=== PATIENT | female | born 1940 | race Caucasian/White ===

== ENCOUNTER 2020-06-30 20:09 | Emergency (ER) | payer MEDICARE, OTHER, SELFPAY ==
[2020-06-30 20:25] VITALS: BP 158/96; PULSE 103; RESP 16; TEMP 36.6; O2SAT 95; BMI 27.7
--- NOTE | 2020-06-30 22:25 | ED_ITS ---
HPI - Chest Pain General Chief Complaint: Chest Pain Stated Complaint: chest pain Time Seen by Provider: 06/30/20 22:24 Source: patient Mode of arrival: ambulatory Limitations: no limitations History of Present Illness HPI narrative: patient with history of good increased anxiety under lot of stress lately been complaining of heartburn more often lately especially for last 2 days patient denies any shortness of breath no nausea no vomiting taking Prilosec at home and Xanax for anxiety MD complaint: chest pain Onset (ago): day(s) (several) Timing of current episode: episodic Prior episodes: Yes Onset: after eating Pain location: substernal Pain radiation: abdomen Severity: mild Quality: burning Relieving factors: nothing Exacerbating factors: eating Related Data Previous Rx's Medication Instructions Recorded pantoprazole [Protonix] 40 mg PO DAILY #30 tab 06/30/20 sucralfate 1 g PO BID #60 tab 06/30/20 Allergies Allergy/AdvReac Type Severity Reaction Status Date / Time Sulfa (Sulfonamide Allergy Intermediate RASH Unverified 05/21/20 15:15 Antibiotics) amoxicillin [From AUGMENTIN] Allergy Unknown PER H&P Unverified 05/21/20 15:15 clavulanic acid Allergy Unknown PER H&P Unverified 05/21/20 15:15 [From AUGMENTIN] garlic [GARLIC] Allergy Unknown PER H&P Unverified 05/21/20 15:15 metronidazole [From FLAGYL] Allergy Unknown OCULAR Unverified 05/21/20 15:15 MIGRAINES penicillamine Allergy Unknown Verified 04/07/20 00:00 environmental Allergy Unknown Uncoded 04/19/19 00:00 flagyl Allergy Unknown Uncoded 04/19/19 00:00 From KEFLEX Allergy Unknown RASH Uncoded 05/21/20 15:15 Metoprolol Tartrate Allergy Unknown Uncoded 04/07/20 00:00 Sulfacet-R Allergy Unknown Uncoded 04/07/20 00:00 Review of Systems Review of Systems: REVIEW OF SYSTEMS: Pertinent positives and negatives are stated above in the history. GEN: no fevers, chills, fatigue HEENT: no nasal congestion, sore throat, ear pain NEURO: no headache, dizziness, focal weakness PULM: no cough, shortness of breath CV: no palpitations, LE edema ABD: no nausea, vomiting, diarrhea : no dysuria, urgency, frequency SKIN: no rash ROS otherwise negative x 10 PMFSH Past Medical History Medical History GERD (gastroesophageal reflux disease) Heart murmur Irritable bowel Surgical History History of hysterectomy Social History Social History Alcohol intake: never Smoked in Last 30 Days: No Use of substances other than those prescribed or required for medical reasons: No Advance Directives: No Advance Directives Information Provided: No Physical Exam Vital Signs: Vital Signs: Vital Signs Temp Pulse Resp BP Pulse Ox 06/30/20 22:46 98.3 F 91 19 158/89 H 97 06/30/20 20:25 97.9 F 103 H 16 158/96 H 95 Body Mass Index 27.7 VITAL SIGNS: Reviewed. GENERAL: Well developed, well nourished, in no acute distress.very anxious HEAD: Normocephalic/atraumatic, Posterior oropharynx was without edema, erythema or exudate. EYES: PERRLA, EOMI intact without pain, no nystagmus/pallor/icterus noted EARS: Ext canals without abnormality, TMs non-bulging and non-erythematous NOSE: Nares patent bilateral OROPHARYNX: no oral lesions noted, posterior pharynx clear and non-erythematous without noted tonsillar enlargement/erythema/exudates NECK: Supple, no adenopathy LUNGS: Normal breath sounds. No adventitious sounds or accessory muscle use CARDIOVASCULAR: Regular rate and rhythm without noted murmurs, no JVD or lower extremity edema. ABDOMEN: Soft, mild-tender epigastric area, non-distended with bowel sounds. No rigidity. No guarding. No palpable masses or hernias noted MUSCULOSKELETAL: No tenderness, deformities, or effusions noted on gross inspection. EXTREMITIES: No cyanosis, clubbing or edema. SKIN: Inspection of the skin reveals no rashes, ulcerations, jaundice, pallor, or petechiae NEUROLOGIC: Alert and oriented x 3. Strength and sensation to light touch were grossly intact x 4. Course Course Course Narrative: patient very anxious symptoms from GERD, EKG is normal with high sensitive troponin negative patient with similar pain in the past MDM - Chest Pain Lab Data Result diagrams: 06/30/20 22:36 06/30/20 22:36 Labs: Lab Results 06/30/20 06/30/20 06/30/20 Range/Units 22:36 22:36 22:36 WBC 4.5 L (4.8-10.8) X10*3/uL RBC 3.78 L (4.20-5.50) X10*6/uL Hgb 11.4 L (12.0-16.0) g/dl Hct 35.6 L (37-47) % MCV 94.2 (80-98) fL MCH 30.2 (27.0-33.0) pg MCHC 32.0 (31.0-35.0) g/dl RDW 13.3 (11.0-16.0) % Plt Count 138 L (160-400) X10*3/uL MPV 11.3 (9.4-12.3) fL Immature Gran % (Auto) 0.2 (0.0-0.4) % Neut % (Auto) 61.7 (45-73) % Lymph % (Auto) 30.1 (20-40) % Osborne % (Auto) 5.3 (2-11) % Eos % (Auto) 2.0 (0-4) % Baso % (Auto) 0.7 (0-2) % Lymph # (Auto) 1.4 (1.2-4.9) X10*3/uL Osborne # (Auto) 0.2 (0.1-1.2) X10*3/uL Eos # (Auto) 0.1 (0.0-0.4) X10*3/uL Baso # (Auto) 0.0 (0.0-0.2) X10*3/uL Abs Immat Gran (auto) 0.01 (0.00-0.03) X10*3/uL Absolute Neuts (auto) 2.8 (2.0-8.3) X10*3/uL Absolute Nucleated RBC 0.000 (0.0-0.012) X10*3/uL Nucleated RBC % (auto) 0.0 (0.0-0.2) /100WBC Smear Tech's Comments VERIFIED Hold Blue Top SEE NOTE Sodium 142 (135-145) mmol/L Potassium 3.6 (3.3-5.1) mmol/l Chloride 102 (96-108) mmol/L Carbon Dioxide 30 H (22-29) mmol/L Anion Gap 14 (12-20) BUN 16 (9-16) mg/dL Creatinine 0.81 (0.5-1.4) mg/dL Estim Creat Clear Calc 61.4 Estimated GFR > 60 Random Glucose 96 (60-115) mg/dL Calcium 9.3 (8.4-10.2) mg/dL Total Bilirubin 0.5 (0.0-1.0) mg/dL Direct Bilirubin 0.2 (0.0-0.5) mg/dL AST 20 (5-31) U/L ALT 13 (0-31) U/L Alkaline Phosphatase 100 (39-117) U/L Troponin I High Sens (<3.5-17.0) ng/L Total Protein 7.1 (6.5-8.0) g/dL Albumin 4.4 (3.5-5.0) g/dL Lipase 12 (8-78) U/L 06/30/20 Range/Units 22:36 WBC (4.8-10.8) X10*3/uL RBC (4.20-5.50) X10*6/uL Hgb (12.0-16.0) g/dl Hct (37-47) % MCV (80-98) fL MCH (27.0-33.0) pg MCHC (31.0-35.0) g/dl RDW (11.0-16.0) % Plt Count (160-400) X10*3/uL MPV (9.4-12.3) fL Immature Gran % (Auto) (0.0-0.4) % Neut % (Auto) (45-73) % Lymph % (Auto) (20-40) % Osborne % (Auto) (2-11) % Eos % (Auto) (0-4) % Baso % (Auto) (0-2) % Lymph # (Auto) (1.2-4.9) X10*3/uL Osborne # (Auto) (0.1-1.2) X10*3/uL Eos # (Auto) (0.0-0.4) X10*3/uL Baso # (Auto) (0.0-0.2) X10*3/uL Abs Immat Gran (auto) (0.00-0.03) X10*3/uL Absolute Neuts (auto) (2.0-8.3) X10*3/uL Absolute Nucleated RBC (0.0-0.012) X10*3/uL Nucleated RBC % (auto) (0.0-0.2) /100WBC Smear Tech's Comments Hold Blue Top Sodium (135-145) mmol/L Potassium (3.3-5.1) mmol/l Chloride (96-108) mmol/L Carbon Dioxide (22-29) mmol/L Anion Gap (12-20) BUN (9-16) mg/dL Creatinine (0.5-1.4) mg/dL Estim Creat Clear Calc Estimated GFR Random Glucose (60-115) mg/dL Calcium (8.4-10.2) mg/dL Total Bilirubin (0.0-1.0) mg/dL Direct Bilirubin (0.0-0.5) mg/dL AST (5-31) U/L ALT (0-31) U/L Alkaline Phosphatase (39-117) U/L Troponin I High Sens 6.8 (<3.5-17.0) ng/L Total Protein (6.5-8.0) g/dL Albumin (3.5-5.0) g/dL Lipase (8-78) U/L ECG Data ECG #1: Attestation: I personally reviewed and interpreted this ECG as follows: Prior ECG tracings: available for review Interpretation: heart rate [address] T wave changes normal axis no signs of ischemia Discharge Plan Discharge Clinical Impression: Chronic GERD, Anxiety Chest pain Qualifiers: Chest pain type: unspecified Qualified Code(s): R07.9 - Chest pain, unspecified Patient Disposition: Home, Self-Care Prescriptions: New pantoprazole [Protonix] 40 mg tablet,delayed release (DR/EC) 40 mg PO DAILY Qty: 30 RF: 2 sucralfate 1 gram tablet 1 g PO BID Qty: 60 RF: 0
--- NOTE | 2020-06-30 22:26 | XR_ITS ---
EXAMINATION: XR CHEST CLINICAL INFORMATION: Chest pain COMPARISON: 02/12/2020 TECHNIQUE: Frontal view of the chest was obtained. FINDINGS: Cardiac leads overlie the chest. No dense consolidation, edema, or effusion. No pneumothorax. Mild bronchial wall thickening. The cardiomediastinal silhouette is unchanged, with a tortuous and calcified aorta. XR/XR chest 1V IMPRESSION: No consolidation. Bronchial wall thickening can be seen with a small airways process such as asthma or atypical/viral infection.
--- NOTE | 2020-06-30 22:26 | ECG_ITS ---
Test Reason : CHEST PAIN Blood Pressure : / mmHG Vent. Rate : 102 BPM Atrial Rate : 102 BPM P-R Int : 192 ms QRS Dur : 086 ms QT Int : 344 ms P-R-T Axes : 047 -07 029 degrees QTc Int : 448 ms Sinus tachycardia Normal ECG When compared with ECG of 15-MAR-2020 10:33, MD interval has decreased Referred By: Declan Malin Electronically Signed By:RADHA CAMARA MD
[2020-06-30 22:44] LABS: Hemoglobin 11.4 g/dl (12.0-16.0); Imm Gran Abs Auto 0.01 X10*3/uL (0.00-0.03); Imm Gran Pct Auto 0.2 % (0.0-0.4); MANUAL DIFF FLAG SCAN; Mean Platelet Volume 11.3 fL (9.4-12.3); PLT CLUMP 1; SCAN SMEAR FLAG 1
[2020-06-30 22:45] LABS: Basophils Percent Auto 0.7 % (0-2); Eosinophils Absolute Auto 0.1 X10*3/uL (0.0-0.4); Hematocrit 35.6 % (37-47); Lymphocytes Absolute Auto 1.4 X10*3/uL (1.2-4.9); Lymphocytes Percent Auto 30.1 % (20-40); Mean Corpuscular Hemoglobin 30.2 pg (27.0-33.0); Mean Corpuscular Volume 94.2 fL (80-98); Monocytes Absolute Auto 0.2 X10*3/uL (0.1-1.2); Monocytes Percent Auto 5.3 % (2-11); Neutrophils Absolute Auto 2.8 X10*3/uL (2.0-8.3); Neutrophils Percent Auto 61.7 % (45-73); Platelet Count 138 X10*3/uL (160-400); Red Blood Count 3.78 X10*6/uL (4.20-5.50); Red Cell Distribution Width 13.3 % (11.0-16.0); White Blood Count 4.5 X10*3/uL (4.8-10.8)
[2020-06-30 22:46] VITALS: BP 158/89; PULSE 91; RESP 19; TEMP 36.8; O2SAT 97
[2020-06-30 22:47] LABS: SLIDE REVIEW VERIFIED
[2020-06-30] MEDS: Aspirin Enteric Coated 81 MG TABLET.DR 162 MG PO (23:02)
[2020-06-30] MEDS: Magnesium Hydrox/Alum Hydrox 30 ML ORAL.SUSP PO (23:02)
[2020-06-30 23:11] LABS: Troponin-I High Sensitivity 6.8 ng/L (<3.5-17.0)
[2020-06-30 23:14] VITALS: PULSE 78
[2020-06-30 23:23] LABS: Alanine Aminotransferase 13 U/L (0-31); Albumin Level 4.4 g/dL (3.5-5.0); Alkaline Phosphatase 100 U/L (39-117); Anion Gap 14 (12-20); Aspartate Amino Transferase 20 U/L (5-31); Bilirubin Direct 0.2 mg/dL (0.0-0.5); Bilirubin Total 0.5 mg/dL (0.0-1.0); Blood Urea Nitrogen 16 mg/dL (9-16); Calcium 9.3 mg/dL (8.4-10.2); Carbon Dioxide 30 mmol/L (22-29); Chloride 102 mmol/L (96-108); Creatinine Clr Calc Pharmacy 61.4; Estimated Glomerular Filt Rate > 60; Glucose Random 96 mg/dL (60-115); Lipase 12 U/L (8-78); Potassium 3.6 mmol/l (3.3-5.1); Sodium 142 mmol/L (135-145); Total Protein 7.1 g/dL (6.5-8.0)
== END 2020-07-01 00:08 | disposition home or self-care (01) ==
PROVIDERS: Emergency Provider Internal Medicine; PCP Internal Medicine
DX: R07.89 Other chest pain (principal); F41.1 Generalized anxiety disorder; F43.0 Acute stress reaction; K21.9 Gastro-esophageal reflux disease without esophagitis; Z79.899 Other long term (current) drug therapy
CPT/HCPCS: 36415; 71045; 80048; 80076; 83690; 84484; 85025; 93005; 99285

== ENCOUNTER → 2020-08-07 11:54 | Outpatient (BNVA) | payer MEDICARE, OTHER, SELFPAY | PROVIDERS: PCP Internal Medicine; Visit Provider Advanced Practice Midwife | DX: N95.2 Postmenopausal atrophic vaginitis (principal); L73.8 Other specified follicular disorders | CPT/HCPCS: 99212 ==

== ENCOUNTER 2020-09-02 16:43 | Outpatient (REF) | payer MEDICARE, OTHER, SELFPAY ==
[2020-09-02 17:31] LABS: Influenza A PCR NEGATIVE (Negative); Influenza B PCR NEGATIVE (Negative); Resp Syncy Virus RNA Qual PCR NEGATIVE (Negative); SARS COV2 PCR INHOUSE NEGATIVE (Negative)
== END 2020-09-02 16:44 | disposition home or self-care (01) ==
LOC: HO.LNP 16:43
PROVIDERS: Visit Provider Internal Medicine
DX: Z20.828 Contact with and (suspected) exposure to other viral communicable diseases (principal); R05 Cough; R68.89 Other general symptoms and signs
CPT/HCPCS: 0241U

== ENCOUNTER 2020-09-09 15:10 | Outpatient (REF) | payer MEDICARE, OTHER, SELFPAY ==
[2020-09-10 09:15] LABS: BV Int Neg Control Negative (Negative); BV Int Pos Control Positive (Positive)
== END 2020-09-09 15:11 | disposition home or self-care (01) ==
LOC: HO.LAB 15:10
PROVIDERS: PCP Internal Medicine; Visit Provider Advanced Practice Midwife
DX: N89.8 Other specified noninflammatory disorders of vagina (principal); N95.2 Postmenopausal atrophic vaginitis
CPT/HCPCS: 87480; 87510; 87660; 99212

== ENCOUNTER 2020-09-14 13:41 | Outpatient (REF) | payer MEDICARE, OTHER, SELFPAY ==
--- NOTE | 2020-09-14 | XR_ITS ---
EXAMINATION: XR CHEST CLINICAL INFORMATION: Persistent cough. COMPARISON: None TECHNIQUE: 2 views of the chest were obtained. FINDINGS: The lungs are well-expanded and clear of acute pneumonic process. There is minimal bilateral apical pleural thickening. The heart size and pulmonary vascularity is normal. There are old healed fracture right posterior sixth rib. No other bony abnormality seen. The soft tissues are normal. XR/XR chest 2V IMPRESSION: No acute cardiopulmonary process seen. Old healed right posterior sixth rib fracture. No other bony abnormality seen.
== END 2020-09-14 13:42 | disposition home or self-care (01) ==
LOC: HO.XRAY 13:41
PROVIDERS: PCP Internal Medicine; Visit Provider Internal Medicine
DX: R05 Cough (principal)
CPT/HCPCS: 71046

== ENCOUNTER 2020-09-17 13:43 | Outpatient (REF) | payer MEDICARE, OTHER, SELFPAY ==
--- NOTE | 2020-09-17 14:07 | XR_ITS ---
EXAMINATION: XR HAND, LEFT CLINICAL INFORMATION: Osteoarthritis left hand COMPARISON: Previous x-rays April 2019 TECHNIQUE: PA, lateral, and oblique views of the left hand. FINDINGS: There is an old healed fracture of the distal radial metaphysis. Alignment is unchanged. There is an old ununited ulnar styloid fracture. No acute fracture or dislocation is seen. There is arthritis at the IP joints with joint space narrowing, osteophyte formation and subchondral cyst formation. This is greatest at the DIP joints of the second third and fourth fingers and PIP joint of the fourth finger. There is mild arthritis at the first CORRECTION joint with joint space narrowing and osteophyte formation. Soft tissues are unremarkable. XR/XR hand LT min 3V IMPRESSION: Old distal radius and ulnar styloid fractures. Severe arthritis at the IP joints and mild arthritis at the first CORRECTION joint.
[2020-09-17 14:21] LABS: MANUAL DIFF FLAG NO
[2020-09-17 14:24] LABS: Basophils Percent Auto 0.4 % (0-2); Eosinophils Absolute Auto 0.1 X10*3/uL (0.0-0.4); Eosinophils Percent Auto 2.5 % (0-4); Hematocrit 35.3 % (37-47); Hemoglobin 11.3 g/dl (12.0-16.0); Imm Gran Abs Auto 0.02 X10*3/uL (0.00-0.03); Imm Gran Pct Auto 0.4 % (0.0-0.4); Lymphocytes Absolute Auto 1.2 X10*3/uL (1.2-4.9); Lymphocytes Percent Auto 25.2 % (20-40); Mean Corpuscular Hemoglobin 30.7 pg (27.0-33.0); Mean Corpuscular Volume 95.9 fL (80-98); Mean Platelet Volume 12.1 fL (9.4-12.3); Monocytes Absolute Auto 0.3 X10*3/uL (0.1-1.2); Monocytes Percent Auto 5.7 % (2-11); Neutrophils Absolute Auto 3.1 X10*3/uL (2.0-8.3); Neutrophils Percent Auto 65.8 % (45-73); Platelet Count 118 X10*3/uL (160-400); Red Blood Count 3.68 X10*6/uL (4.20-5.50); White Blood Count 4.8 X10*3/uL (4.8-10.8)
[2020-09-17 14:50] LABS: Alanine Aminotransferase 13 U/L (0-31); Albumin Level 4.2 g/dL (3.5-5.0); Alkaline Phosphatase 111 U/L (39-117); Anion Gap 11 (12-20); Aspartate Amino Transferase 17 U/L (5-31); Bilirubin Total 0.4 mg/dL (0.0-1.0); Blood Urea Nitrogen 23 mg/dL (9-16); C Reactive Protein 0.06 mg/dL (< or = 0.50); Calcium 8.8 mg/dL (8.4-10.2); Carbon Dioxide 32 mmol/L (22-29); Chloride 104 mmol/L (96-108); Estimated Glomerular Filt Rate > 60; Glucose Random 88 mg/dL (60-115); Potassium 4.9 mmol/l (3.3-5.1); Sodium 142 mmol/L (135-145); Total Protein 6.9 g/dL (6.5-8.0)
== END 2020-09-17 13:44 | disposition home or self-care (01) ==
LOC: HO.LAB 13:43
PROVIDERS: PCP Internal Medicine; Visit Provider Internal Medicine
DX: K21.9 Gastro-esophageal reflux disease without esophagitis (principal); M19.042 Primary osteoarthritis, left hand; K58.9 Irritable bowel syndrome, unspecified
CPT/HCPCS: 36415; 73130; 80053; 85025; 86140

== ENCOUNTER 2020-10-19 14:03 | Outpatient (REF) | payer MEDICARE, OTHER, SELFPAY | END 2020-10-19 14:04 | disposition home or self-care (01) | LOC: HO.LNP 14:03 | PROVIDERS: Visit Provider Hospitalist | DX: Z20.822 Contact with and (suspected) exposure to COVID-19 (principal); B34.9 Viral infection, unspecified | CPT/HCPCS: U0003; U0005 ==

== ENCOUNTER 2020-11-12 09:51 | Outpatient (REF) | payer MEDICARE, OTHER, SELFPAY ==
[2020-11-12 11:29] LABS: MANUAL DIFF FLAG NO
[2020-11-12 11:37] LABS: Basophils Percent Auto 0.8 % (0-2); Eosinophils Absolute Auto 0.1 X10*3/uL (0.0-0.4); Hematocrit 35.4 % (37-47); Hemoglobin 11.5 g/dl (12.0-16.0); Imm Gran Abs Auto 0.02 X10*3/uL (0.00-0.03); Imm Gran Pct Auto 0.5 % (0.0-0.4); Lymphocytes Percent Auto 27.9 % (20-40); Mean Corpuscular HGB Conc 32.5 g/dl (31.0-35.0); Mean Corpuscular Hemoglobin 30.4 pg (27.0-33.0); Mean Corpuscular Volume 93.7 fL (80-98); Mean Platelet Volume 12.6 fL (9.4-12.3); Monocytes Absolute Auto 0.3 X10*3/uL (0.1-1.2); Monocytes Percent Auto 7.7 % (2-11); Neutrophils Absolute Auto 2.2 X10*3/uL (2.0-8.3); Neutrophils Percent Auto 60.1 % (45-73); Platelet Count 130 X10*3/uL (160-400); Red Blood Count 3.78 X10*6/uL (4.20-5.50); Red Cell Distribution Width 13.4 % (11.0-16.0); White Blood Count 3.7 X10*3/uL (4.8-10.8)
[2020-11-12 12:26] LABS: Alanine Aminotransferase 12 U/L (0-31); Albumin Level 4.3 g/dL (3.5-5.0); Alkaline Phosphatase 143 U/L (39-117); Amylase 34 U/L (28-100); Anion Gap 13 (12-20); Aspartate Amino Transferase 19 U/L (5-31); Bilirubin Total 0.6 mg/dL (0.0-1.0); Blood Urea Nitrogen 13 mg/dL (9-16); Calcium 9.1 mg/dL (8.4-10.2); Carbon Dioxide 30 mmol/L (22-29); Chloride 101 mmol/L (96-108); Estimated Glomerular Filt Rate > 60; Glucose Random 123 mg/dL (60-115); Lipase 13 U/L (8-78); Potassium 3.8 mmol/L (3.3-5.1); Sodium 140 mmol/L (135-145)
== END 2020-11-12 09:52 | disposition home or self-care (01) ==
LOC: HO.HMGCLDS 09:51
PROVIDERS: PCP Internal Medicine; Visit Provider Nurse Practitioner Family
DX: B34.9 Viral infection, unspecified (principal); R10.13 Epigastric pain; R19.7 Diarrhea, unspecified; R11.0 Nausea
CPT/HCPCS: 36415; 80053; 82150; 83690; 85025

== ENCOUNTER 2020-11-27 13:54 | Outpatient (REF) | payer MEDICARE, OTHER, SELFPAY ==
[2020-11-27 16:41] LABS: Uric Acid 4.2 mg/dL (2.4-5.7)
== END 2020-11-27 13:55 | disposition home or self-care (01) ==
LOC: HO.HMGCLDS 13:54
PROVIDERS: PCP Internal Medicine; Visit Provider Podiatrist
DX: M10.9 Gout, unspecified (principal)
CPT/HCPCS: 36415; 84550

== ENCOUNTER 2021-01-13 10:25 | Outpatient (REF) | payer MEDICARE, OTHER, SELFPAY ==
--- NOTE | ~2021-01-13 | MM_ITS ---
EXAMINATION: MM SCREENING DIGITAL BREAST TOMOSYNTHESIS, BILATERAL CLINICAL INFORMATION: Screening. Asymptomatic. The lifetime risk of breast cancer based on the Tyrer-Cuzick Model is 3%. COMPARISON: Mammography: 02/09/2019; outside exams 02/03/2018, 01/20/2017, 01/18/2016 ([facility] [place]). TECHNIQUE: Digital breast tomosynthesis is performed in both the craniocaudal and mediolateral oblique views along with computer-aided detection (CAD). Synthesized 2D images are generated from the tomosynthesis. FINDINGS: There are scattered areas of fibroglandular density (ACR BI-RADS breast composition Category b). There are no significant masses, abnormal calcifications, or other abnormalities. Parenchymal pattern is similar to prior studies. There are some shifting fibroglandular densities related to positioning from year to year as expected. The skin contours are smooth. No significant changes. MM/MM tomosynthesis screening BI IMPRESSION: No mammographic evidence of malignancy. ASSESSMENT: BI-RADS 2: Benign RECOMMENDATION: Routine annual mammography screening. This patient's information was entered into a reminder system with a target due date for their next mammogram.
== END 2021-01-13 10:26 | disposition home or self-care (01) ==
LOC: HO.MAMMO 10:25
PROVIDERS: PCP Internal Medicine; Visit Provider Internal Medicine
DX: Z12.31 Encounter for screening mammogram for malignant neoplasm of breast (principal)
CPT/HCPCS: 77063; 77067

== ENCOUNTER 2021-01-14 10:53 | Outpatient (REF) | payer MEDICARE, OTHER, SELFPAY ==
[2021-01-14 13:50] LABS: MANUAL DIFF FLAG NO
[2021-01-14 14:00] LABS: Basophils Percent Auto 0.8 % (0-2); Eosinophils Absolute Auto 0.1 X10*3/uL (0.0-0.4); Eosinophils Percent Auto 2.4 % (0-4); Hematocrit 34.4 % (37-47); Hemoglobin 10.9 g/dl (12.0-16.0); Imm Gran Abs Auto 0.01 X10*3/uL (0.00-0.03); Imm Gran Pct Auto 0.3 % (0.0-0.4); Lymphocytes Absolute Auto 1.1 X10*3/uL (1.2-4.9); Lymphocytes Percent Auto 29.1 % (20-40); Mean Corpuscular HGB Conc 31.7 g/dl (31.0-35.0); Mean Corpuscular Volume 94.8 fL (80-98); Mean Platelet Volume 12.8 fL (9.4-12.3); Monocytes Absolute Auto 0.3 X10*3/uL (0.1-1.2); Monocytes Percent Auto 6.8 % (2-11); Neutrophils Absolute Auto 2.3 X10*3/uL (2.0-8.3); Neutrophils Percent Auto 60.6 % (45-73); Platelet Count 126 X10*3/uL (160-400); Red Blood Count 3.63 X10*6/uL (4.20-5.50); Red Cell Distribution Width 13.2 % (11.0-16.0); White Blood Count 3.8 X10*3/uL (4.8-10.8)
[2021-01-14 14:24] LABS: Iron 60 mcg/dL (30-160); Percent Iron Saturation 21 % (15-50); Total Iron Binding Capacity 290 mcg/dL (228-428); Unsaturated Iron Binding 230 ug/dL
[2021-01-14 14:47] LABS: Free T4 (Free Thyroxine) 1.06 ng/dL (0.71-1.85); Thyroid Stimulating Hormone 0.77 uIU/mL (0.32-4.0)
[2021-01-14 15:12] LABS: Vitamin B12 183 pg/mL (200-900)
== END 2021-01-14 10:54 | disposition home or self-care (01) ==
LOC: HO.10HDL 10:53
PROVIDERS: Visit Provider Internal Medicine
DX: D64.9 Anemia, unspecified (principal); R79.89 Other specified abnormal findings of blood chemistry; K21.9 Gastro-esophageal reflux disease without esophagitis
CPT/HCPCS: 36415; 82607; 83540; 84439; 84443; 85025

== ENCOUNTER 2021-02-04 10:16 | Outpatient (REF) | payer MEDICARE, OTHER, SELFPAY ==
[2021-02-04 13:19] LABS: Hemoglobin 11.8 g/dl (12.0-16.0); Imm Gran Abs Auto 0.01 X10*3/uL (0.00-0.03); Imm Gran Pct Auto 0.3 % (0.0-0.4); MANUAL DIFF FLAG SCAN; Mean Platelet Volume 13.2 fL (9.4-12.3); Red Cell Distribution Width 13.1 % (11.0-16.0); SCAN SMEAR FLAG 1
[2021-02-04 13:21] LABS: Basophils Percent Auto 0.6 % (0-2); Eosinophils Absolute Auto 0.1 X10*3/uL (0.0-0.4); Eosinophils Percent Auto 3.2 % (0-4); Hematocrit 36.9 % (37-47); Lymphocytes Absolute Auto 1.1 X10*3/uL (1.2-4.9); Lymphocytes Percent Auto 31.8 % (20-40); Mean Corpuscular Hemoglobin 29.9 pg (27.0-33.0); Mean Corpuscular Volume 93.4 fL (80-98); Monocytes Absolute Auto 0.2 X10*3/uL (0.1-1.2); Monocytes Percent Auto 6.8 % (2-11); Neutrophils Percent Auto 57.3 % (45-73); PLT ABN DIST 1; Platelet Count 101 X10*3/uL (160-400); Red Blood Count 3.95 X10*6/uL (4.20-5.50); White Blood Count 3.4 X10*3/uL (4.8-10.8)
[2021-02-04 13:46] LABS: Alanine Aminotransferase 12 U/L (0-31); Albumin Level 4.2 g/dL (3.5-5.0); Alkaline Phosphatase 107 U/L (39-117); Anion Gap 12 (12-20); Aspartate Amino Transferase 18 U/L (5-31); Bilirubin Total 0.5 mg/dL (0.0-1.0); Blood Urea Nitrogen 16 mg/dL (9-16); C Reactive Protein 0.03 mg/dL (< or = 0.50); Calcium 9.4 mg/dL (8.4-10.2); Carbon Dioxide 30 mmol/L (22-29); Chloride 104 mmol/L (96-108); Estimated Glomerular Filt Rate > 60; Glucose Random 105 mg/dL (60-115); Lipase 15 U/L (8-78); Potassium 4.1 mmol/L (3.3-5.1); Rheumatoid Factor < 15.0 IU/mL (<15.0); Sodium 142 mmol/L (135-145); Total Protein 6.8 g/dL (6.5-8.0)
[2021-02-04 14:09] LABS: SLIDE REVIEW VERIFIED
[2021-02-04 14:14] LABS: Erythrocyte Sedimentation Rate 14 MM/HR (0-20)
[2021-02-05 14:07] LABS: Anti Nuclear Antibody Screen NEGATIVE (NEGATIVE)
== END 2021-02-04 10:17 | disposition home or self-care (01) ==
LOC: HO.10HDL 10:16
PROVIDERS: PCP Internal Medicine; Visit Provider Internal Medicine
DX: R10.9 Unspecified abdominal pain (principal); D64.9 Anemia, unspecified; M25.50 Pain in unspecified joint; K21.9 Gastro-esophageal reflux disease without esophagitis
CPT/HCPCS: 36415; 80053; 83690; 85025; 85652; 86038; 86039; 86140; 86431

== ENCOUNTER 2021-02-18 09:43 | Outpatient (REF) | payer MEDICARE, OTHER, SELFPAY ==
--- NOTE | ~2021-02-18 | MM_ITS ---
EXAMINATION: BONE DENSITOMETRY CLINICAL INDICATION: Postmenopausal. COMPARISON: Baseline BD dated 04/15/2010. TECHNIQUE: Using a OnAir3G DXA System (software version: 13.1) manufactured by [employer], dual-energy x-ray absorptiometry was performed of the lumbar spine and left hip. The images are of good technical quality. Summary results are attached. FINDINGS: AP SPINE L1-L4: Current: BMD 0.938 g/cm2, Z-score -0.8, T-score -2.0, osteopenia, 0.3% decrease from baseline (<5% change is not significant). Baseline: BMD 0.941 g/cm2. LEFT FEMUR, NECK: Current: BMD 0.676 g/cm2, Z-score -0.9, T-score -2.6, osteoporosis. Baseline: BMD 0.775 g/cm2. LEFT FEMUR, TOTAL: Current: BMD 0.676 g/cm2, Z-score -1.1, T-score -2.6, osteoporosis, 15.5% decrease from baseline (<5% change is not significant). Baseline: BMD 0.800 g/cm2. IDENTIFIED RISK FACTORS: Osteoporosis, height loss, low calcium intake, history of fracture (adult), menopause. HISTORY OF FRACTURE: Wrist. MEDICATIONS: None listed. MM/XR DEXA axial skeleton IMPRESSION: 1. DIAGNOSIS: Osteoporosis based on the lowest T-score value of -2.6 in the femoral neck and total femur applying World Health Organization criteria. 2. 10-YEAR FRACTURE RISK PREDICTION, FRAX: Major osteoporotic fracture (clinical spine, forearm, hip or shoulder) 28.0%. Hip fracture 9.4%. 3. Treatment Recommendations: NOF guidelines recommend consideration for treatment in postmenopausal women and men age 50 and older presenting with the following: -A hip or vertebral (clinical or morphometric) fracture. -T-score less than or equal to -2.5 at the femoral neck or spine after appropriate evaluation to exclude secondary causes. -Low bone mass at the hip or spine and a 10-year fracture probability by FRAX of greater than or equal to 3% for hip fracture or greater than or equal to 20% for major osteoporotic fracture based on the [place] adapted WHO algorithm. 4. Other Recommendations: All treatment decisions require clinical judgment and consideration of individual patient factors, including patient preferences, comorbidities, previous drug use, risk factors not captured in the FRAX model (e.g. frailty, falls, vitamin D deficiency, increased bone turnover, interval significant decline in bone density) and possible under or overestimation of fracture risk by FRAX. Additional medical evaluation for secondary cause of low bone mineral density may be appropriate. FUTURE SCAN RECOMMENDATION: People with diagnosed cases of osteoporosis or at high risk for fracture should have regular bone mineral density tests. For patients eligible for Medicare, routine testing is allowed once every 2 years. The testing frequency can be increased to one year for patients who have rapidly progressing disease, those who are receiving or discontinuing medical therapy to restore bone mass, or have additional risk factors.
== END 2021-02-18 09:44 | disposition home or self-care (01) ==
LOC: HO.MAMMO 09:43
PROVIDERS: Visit Provider Internal Medicine
DX: Z13.820 Encounter for screening for osteoporosis (principal); M81.0 Age-related osteoporosis without current pathological fracture; Z78.0 Asymptomatic menopausal state; Z87.81 Personal history of (healed) traumatic fracture
CPT/HCPCS: 77080

== ENCOUNTER 2021-02-24 09:30 | Emergency (ER) | payer MEDICARE, OTHER, SELFPAY ==
[2021-02-24] VITALS (9 sets, daily range): BP systolic 141–173; BP diastolic 85–96; PULSE 80–97; RESP 15–18; TEMP 36.4–36.6; O2SAT 95–99; BMI 30.3
--- NOTE | ~2021-02-24 | CT_ITS ---
EXAMINATION: CT ABDOMEN AND PELVIS WITH CONTRAST CLINICAL INFORMATION: Left about pain and nausea COMPARISON: None TECHNIQUE: Multidetector volumetric images were obtained from the superior aspect of the liver through the pubic symphysis following administration 85 mL of Omnipaque 350 intravenous contrast. Sagittal and coronal reformatted images were obtained on the technologist's workstation. Oral contrast: No This CT examination was performed using dose optimization techniques as appropriate, variously including the following: *Automated exposure control *Adjustment of mA and/or kV according to patient size (this includes techniques or standardized protocols for targeted exams where dose is matched to indication/reason for exam; i.e. extremities or head) *Use of iterative reconstruction technique DLP: 7:15 mGy-cm FINDINGS: LUNG BASES: There is mild atelectasis or fibrosis in both lung bases. The heart size is normal. LIVER, GALLBLADDER, AND BILIARY TREE: The liver is normal in enlarged in size measuring 18.5 cm. It is normal shape, and attenuation. There is a 1.3 cm hypodensity right hepatic lobe likely simple cyst. No additional lesions seen. No intrahepatic ductal dilatation seen. The gallbladder is unremarkable with no evidence of radiopaque gallstones, gallbladder wall thickening, or obvious pericholecystic inflammatory changes. PANCREAS: Unremarkable. SPLEEN: Unremarkable. ADRENAL GLANDS: Unremarkable. KIDNEYS AND URETERS: The kidneys are normal in size, shape, and attenuation. There is a nonobstructing 4 mm radiopaque calculi upper and midpole left kidney. No caliectasis or hydronephrosis seen. There is no radiopaque right renal calculi seen. BLADDER: Unremarkable. GASTROINTESTINAL TRACT: There is moderate scattered stool seen throughout the colon without significant distention. The small bowel loops are normal caliber. Appendix there is not visualized. There is diffuse colonic diverticulosis without diverticulitis. ABDOMINAL WALL: No significant hernia is appreciated. LYMPH NODES: Normal. VASCULAR: There is mild atherosclerotic dilation of mid abdominal aorta measuring 3.0 x 3.1 cm on axial image 36/3 PELVIC VISCERA: Unremarkable. OSSEOUS STRUCTURES: The uterus is midline and appears unremarkable. No free fluid. No adnexal mass or abnormal lymphadenopathy. Carotid calcifications are seen at the L4-L5 L5-S1 disc levels. There is mild ventral spondylosis lower dorsal and upper lumbar spine. No lytic process. CT/CT abdomen pelvis w con IMPRESSION: Colonic diverticulosis without diverticulitis. Moderate constipation. Nonobstructive left renal calculi without caliectasis or hydronephrosis. There are extrarenal bilateral kidney pelvises. Mild hepatomegaly. Mild atherosclerotic dilation of mid abdominal aorta as described above on.
[2021-02-24] MEDS: 0.9 % Sodium Chloride 1,000 ML 999 ML IVCONT (11:34)
[2021-02-24 11:43] LABS: Eosinophils Absolute Auto 0.1 X10*3/uL (0.0-0.4); Hemoglobin 11.7 g/dl (12.0-16.0); Imm Gran Abs Auto 0.01 X10*3/uL (0.00-0.03); Imm Gran Pct Auto 0.3 % (0.0-0.4); Lymphocytes Percent Auto 30.5 % (20-40); MANUAL DIFF FLAG SCAN; Monocytes Absolute Auto 0.2 X10*3/uL (0.1-1.2); PLT CLUMP 1; Red Cell Distribution Width 13.2 % (11.0-16.0); SCAN SMEAR FLAG 1
[2021-02-24 11:44] LABS: Appearance Urine CLEAR; Color Urine YELLOW; Glucose Urine UA NEG (NEG); Leukocyte Esterase Urine NEG (NEG); Nitrite Urine NEG (NEG); Urine Blood NEG (NEG); Urine Ketones NEG (NEG); Urine Protein NEG (NEG-TRACE)
[2021-02-24 11:45] LABS: Basophils Percent Auto 0.6 % (0-2); Eosinophils Percent Auto 1.7 % (0-4); Hematocrit 36.4 % (37-47); Lymphocytes Absolute Auto 1.1 X10*3/uL (1.2-4.9); Mean Corpuscular HGB Conc 32.1 g/dl (31.0-35.0); Mean Corpuscular Hemoglobin 29.9 pg (27.0-33.0); Mean Corpuscular Volume 93.1 fL (80-98); Mean Platelet Volume 11.7 fL (9.4-12.3); Monocytes Percent Auto 6.7 % (2-11); Neutrophils Absolute Auto 2.2 X10*3/uL (2.0-8.3); Neutrophils Percent Auto 60.2 % (45-73); Platelet Count 134 X10*3/uL (160-400); Red Blood Count 3.91 X10*6/uL (4.20-5.50); White Blood Count 3.6 X10*3/uL (4.8-10.8)
[2021-02-24 11:48] LABS: Prothrombin Time 11.9 SEC (10.8-13.0)
[2021-02-24 12:13] LABS: Alanine Aminotransferase 11 U/L (0-31); Albumin Level 4.4 g/dL (3.5-5.0); Alkaline Phosphatase 116 U/L (39-117); Anion Gap 11 (12-20); Aspartate Amino Transferase 19 U/L (5-31); Bilirubin Total 0.5 mg/dL (0.0-1.0); Blood Urea Nitrogen 18 mg/dL (9-16); Calcium 9.7 mg/dL (8.4-10.2); Carbon Dioxide 32 mmol/L (22-29); Chloride 103 mmol/L (96-108); Creatinine Clr Calc Pharmacy 63.2; Estimated Glomerular Filt Rate > 60; Glucose Random 97 mg/dL (60-115); Lipase 12 U/L (8-78); Magnesium 2.2 mg/dL (1.6-2.6); Potassium 5.3 mmol/L (3.3-5.1); Sodium 141 mmol/L (135-145); Total Protein 7.1 g/dL (6.5-8.0)
--- NOTE | 2021-02-24 12:31 | ED.ABDPAIN ---
HPI - Abdominal Pain General Chief Complaint: Abdominal Pain <ROMAINE Pham Last Filed: 02/24/21 16:59> Stated Complaint: abd pain <ROMAINE Pham Last Filed: 02/24/21 16:59> Time Seen by Provider: 02/24/21 10:49 <ROMAINE Pham Last Filed: 02/24/21 16:59> Source: patient <ROMAINE Pham Last Filed: 02/24/21 16:59> Mode of arrival: ambulatory <ROMAINE Pham Last Filed: 02/24/21 16:59> Limitations: no limitations <ROMAINE Pham Last Filed: 02/24/21 16:59> History of Present Illness HPI narrative: 80-year-old female with a past medical history of diverticulitis, irritable bowel syndrome, GERD, heart murmur, and anxiety presenting to the ED with complaints of left lower quadrant abdominal pain for the past few days worse today with associated nausea and constipation. Denies any fevers, dizziness, headaches, neck pain/stiffness, sore throat, cough, chest pain, shortness of breath, radiation of the abdominal pain, back pain, dysuria, hematuria, abnormal vaginal discharge, black or bloody stools or diarrhea. Denies recent travel or sick contacts or possible bad food exposure. <ROMAINE Pham Last Filed: 02/24/21 16:59> MD elicited complaint: abdominal pain <ROMAINE Pham Last Filed: 02/24/21 16:59> Pertinent past history: diverticulitis <ROMAINE Pham Last Filed: 02/24/21 16:59> Onset (ago): day(s) (A few days worse today) <ROMAINE Pham Last Filed: 02/24/21 16:59> Pain Consistency: constant <ROMAINE Pham Last Filed: 02/24/21 16:59> Location: LLQ <ROMAINE Pham Last Filed: 02/24/21 16:59> Severity: moderate <ROMAINE Pham Last Filed: 02/24/21 16:59> Quality: cramping and aching <ROMAINE Pham Last Filed: 02/24/21 16:59> Radiation: none <ROMAINE Pham - Last Filed: 02/24/21 16:59> Migration to: no migration <ROMAINE Pham - Last Filed: 02/24/21 16:59> Exacerbating factors: nothing <ROMAINE Pham - Last Filed: 02/24/21 16:59> Relieving factors: nothing <ROMAINE Pham - Last Filed: 02/24/21 16:59> Associated symptoms: nausea <ROMAINE Pham - Last Filed: 02/24/21 16:59> Related Data Home Medications: Home Medications Medication Instructions Recorded Confirmed alprazolam 0.25 mg tablet 0.25 mg PO TID PRN 08/07/20 01/28/21 desvenlafaxine succinate 25 mg 25 mg PO DAILY 08/07/20 01/28/21 tablet,extended release 24 hr omeprazole 20 mg capsule,delayed 20 mg PO DAILY 08/07/20 01/28/21 release hyoscyamine sulfate 0.125 mg tablet 0.125 mg PO BID-QID PRN 03/27/21 Previous Rx's Medication Instructions Recorded pantoprazole [Protonix] 40 mg PO DAILY #30 tab 06/30/20 ondansetron HCl 8 mg tablet 8 mg PO Q8H PRN #20 tab 10/19/20 famotidine 20 mg tablet 20 mg PO DAILY #14 tab 11/12/20 ondansetron 4 mg disintegrating 4 mg PO Q6H PRN #20 tab 11/12/20 tablet famotidine 40 mg tablet 40 mg PO BEDTIME #30 tab 01/28/21 docusate sodium [Colace] 100 mg PO BID PRN #14 cap 02/24/21 <ROMAINE Pham - Last Filed: 02/24/21 16:59> Allergies/Adverse Reactions: Allergies Allergy/AdvReac Type Severity Reaction Status Date / Time Sulfa (Sulfonamide Allergy Intermediate RASH Verified 03/27/21 13:14 Antibiotics) amoxicillin [From AUGMENTIN] Allergy Unknown PER H&P Verified 03/27/21 13:14 clavulanic acid Allergy Unknown PER H&P Verified 03/27/21 13:14 [From AUGMENTIN] garlic [GARLIC] Allergy Unknown PER H&P Verified 03/27/21 13:14 metronidazole [From FLAGYL] Allergy Unknown OCULAR Verified 03/27/21 13:14 MIGRAINES penicillamine Allergy Unknown Unknown Verified 03/27/21 13:14 environmental Allergy Unknown Unknown Uncoded 03/11/21 08:37 flagyl Allergy Unknown Unknown Uncoded 03/11/21 08:37 From KEFLEX Allergy Unknown RASH Uncoded 05/21/20 15:15 Metoprolol Tartrate Allergy Unknown Unknown Uncoded 03/11/21 08:37 Sulfacet-R Allergy Unknown Unknown Uncoded 03/11/21 08:37 <ROMAINE Pham - Last Filed: 02/24/21 16:59> Review of Systems Review of Systems Constitutional : No Weight loss, No Fever, No Chills, No Night Sweats, No Fatigue, NoMalaise ENT/Mouth: No ear pain, No sore throat, No Difficulty swallowing Cardiovascular : No Chest Pain, No SOB, No Dyspnea on Exertion, No Orthopnea, NoEdema, No Palpitations Respiratory : No Cough, No Sputum, No Wheezing, No Dyspnea Gastrointestinal : Positive nausea/abdominal pain/constipation, No Vomiting,No Diarrhea, No blood streaked emesis, No coffee-ground emesis, No gross hematemesis, No blood streak stool, No gross hematochezia, No Melena Genitourinary : No irregular bleeding, No Dysuria, No Urinary Frequency, No Hematuria,No Urinary Incontinence, No Urgency, No Flank Pain Musculoskeletal : No joint pain, No Myalgias, No Joint Swelling Skin : No Skin Lesions, No rash Neuro : No Weakness, No Numbness, No Paresthesias, No Loss of Consciousness, NoDizziness, No Headache Psych : No Social Issues, Heme/Lymph: No Bruising, No Bleeding,No Lymphadenopathy Endocrine : No Polyuria, No Polydipsia, No Temperature Intolerance <ROMAINE Pham - Last Filed: 02/24/21 16:59> Yes all other systems are reviewed and are negative <ROMAINE Pham - Last Filed: 02/24/21 16:59> Physical Exam Vital Signs: Vital Signs: Last Vital Signs Temp 97.9 F 02/24/21 18:15 Pulse 87 02/24/21 18:15 Resp 18 02/24/21 18:15 BP 167/86 H 02/24/21 18:15 Pulse Ox 95 02/24/21 18:15 Body Mass Index 30.3 vital signs have been reviewed as normal and appeared to be correct. Blood pressure normal. Heart rate normal. Respiration rate normal. Temperature normal. Oxygen saturation normal. <ROMAINE Pham - Last Filed: 02/24/21 16:59> Vital Signs: Last Vital Signs Temp 97.9 F 02/24/21 18:15 Pulse 87 02/24/21 18:15 Resp 18 02/24/21 18:15 BP 167/86 H 02/24/21 18:15 Pulse Ox 95 02/24/21 18:15 Body Mass Index 30.3 <Ilsa Navarro NP - Last Filed: 02/24/21 18:49> Vital Signs: Last Vital Signs Temp 97.9 F 02/24/21 18:15 Pulse 87 02/24/21 18:15 Resp 18 02/24/21 18:15 BP 167/86 H 02/24/21 18:15 Pulse Ox 95 02/24/21 18:15 Body Mass Index 30.3 <Branden Freeman MD - Last Filed: 03/29/21 19:15> Appearance: Alert. Oriented X3. No acute distress. Head: Normal external exam. Normocephalic. Eyes: PERRLA. EOMI. Conjunctiva and sclera normal. Eyelids normal. ENT: Pharynx normal. Uvula midline. Moist mucous membranes. Neck: Normal inspection. Neck supple. FROM. No adenopathy. No meningeal signs. CVS: Normal heart rate and rhythm. Heart sound normal. No murmurs noted. Pulses normal throughout. Respiratory: No respiratory distress. Painless inspiration. Breath sounds normal. No wheezes/rales/rhonchi noted. Chest nontender. No accessory muscle usage noted or decreased air movement noted. Abdomen: Soft and mild tenderness to palpation to left mid abdomen/left lower quadrant. Nondistended. No guarding. No rigidity. Bowel sounds normal in all 4 quadrants. No distention noted. No organomegaly noted. No visible injury noted. No rebound tenderness. Negative Rovsing sign. Negative obturator's sign. Negative psoas sign. Negative Sanders sign. Back: No CVA tenderness. Full range of motion noted. Skin: Skin warm and dry. Normal skin color. Normal skin turgor. No rashes/lesions/lacerations noted. Extremities: Extremities exhibit normal range of motion. Extremities nontender. Neuro: Oriented X 3. No motor deficit. No sensory deficit. Reflexes normal. Normal steady gait. <ROMAINE Pham - Last Filed: 02/24/21 16:59> Course Course Course Narrative: 11am - 80-year-old female with a past medical history of diverticulitis, irritable bowel syndrome, GERD, heart murmur, and anxiety presenting to the ED with complaints of left lower quadrant abdominal pain for the past few days worse today with associated nausea and constipation. Plan: Labs, UA, CT scan of abdomen and pelvis with IV contrast. Provide a L of IV fluids. Patient declined any nausea and pain meds at this time. Then re-evaluate. <ROMAINE Pham - Last Filed: 02/24/21 16:59> 1700-Sign out from Joan [facility] care team 1845-Seen by Care team and offered outpatient resources. No safety concerns. Plan for discharge home. <Ilsa Navarro NP - Last Filed: 02/24/21 18:49> I have reviewed the chart <Branden Freeman MD - Last Filed: 03/29/21 19:15> Reevaluation(s) Reevaluation #1: - labs reviewed and patient with a white blood cell count at 3.6. Mild baseline anemia similar when compared to prior. Potassium 5.3. BUN 18. Otherwise all other labs are within normal limits. UA within normal limits no evidence of UTI. - Therefore will obtain blood cultures and lactic acid. Start the patient on 750 of Levaquin IV. - give the patient 45 g of Kayexalate for the patient's hyperkalemia - still awaiting CT scan abdomen pelvis with IV contrast. We will re-evaluate. <ROMAINE Pham - Last Filed: 02/24/21 16:59> Time: 12:38 <ROMAINE Pham - Last Filed: 02/24/21 16:59> Reevaluation #2: - CT scan abdomen pelvis with IV contrast revealed colonic diverticulosis without diverticulitis. Moderate constipation. Nonobstructive left renal calculi without hydronephrosis. Mild hepatomegaly otherwise chronic changes no other acute processes noted. - therefore I printed this out and gave a copy of her CT scan results to the patient. - I explained to her that I was sent her with antibiotics for diverticulosis. - although when I was explaining the patient her results she was very tearful and I thought it was because of the care we provided although patient reports that the care with provider is excellent and is not the care we are providing it is actually she is feeling overwhelmed and is dealing with a lot of home stressors. She reports that her recently with a past year due to dementia and in a hip fracture. Her son is also dealing with a lot of medical issues and needs surgery therefore she has been very overwhelmed and has had increased anxiety. She denies any SI/HI/auditory visual sedation thoughts of self-injury. Although I recommended that she speak to a counselor and she is agreeable. Therefore patient placed in position observation at this time because she needs more time to be evaluated by crisis for her increased anxiety. At this time patient is alert and oriented x3. Not in any acute distress. No focal neuro deficits are noted. Lungs clear to auscultation. CV RRR. Will continue to monitor until patient is seen by crisis. <ROMAINE Pham - Last Filed: 02/24/21 16:59> Time: 15:14 <ROMAINE Pham - Last Filed: 02/24/21 16:59> MDM - Abdominal Pain Medical Records Attestation: I reviewed the patient's medical records. <ROMAINE Pham - Last Filed: 02/24/21 16:59> Lab Data Attestation: I reviewed the patient's lab results. <ROMAINE Pham - Last Filed: 02/24/21 16:59> Result diagrams: : 02/24/21 11:30 02/24/21 11:30 <ROMAINE Pham - Last Filed: 02/24/21 16:59> Labs: Lab Results 02/24/21 02/24/21 02/24/21 Range/Units 11:30 11:30 11:30 WBC 3.6 L (4.8-10.8) X10*3/uL RBC 3.91 L (4.20-5.50) X10*6/uL Hgb 11.7 L (12.0-16.0) g/dl Hct 36.4 L (37-47) % MCV 93.1 (80-98) fL MCH 29.9 (27.0-33.0) pg MCHC 32.1 (31.0-35.0) g/dl RDW 13.2 (11.0-16.0) % Plt Count 134 L D (160-400) X10*3/uL MPV 11.7 (9.4-12.3) fL Immature Gran % (Auto) 0.3 (0.0-0.4) % Neut % (Auto) 60.2 (45-73) % Lymph % (Auto) 30.5 (20-40) % [place] % (Auto) 6.7 (2-11) % Eos % (Auto) 1.7 (0-4) % Baso % (Auto) 0.6 (0-2) % Lymph # (Auto) 1.1 L (1.2-4.9) X10*3/uL [place] # (Auto) 0.2 (0.1-1.2) X10*3/uL Eos # (Auto) 0.1 (0.0-0.4) X10*3/uL Baso # (Auto) 0.0 (0.0-0.2) X10*3/uL Abs Immat Gran (auto) 0.01 (0.00-0.03) X10*3/uL Absolute Neuts (auto) 2.2 (2.0-8.3) X10*3/uL Absolute Nucleated RBC 0.000 (0.0-0.012) X10*3/uL Nucleated RBC % (auto) 0.0 (0.0-0.2) /100WBC Smear Tech's Comments Not Reportable PT 11.9 (10.8-13.0) SEC INR 1.0 (0.9-1.1) Sodium 141 (135-145) mmol/L Potassium 5.3 H D (3.3-5.1) mmol/L Chloride 103 (96-108) mmol/L Carbon Dioxide 32 H (22-29) mmol/L Anion Gap 11 L (12-20) BUN 18 H (9-16) mg/dL Creatinine 0.78 (0.5-1.4) mg/dL Estim Creat Clear Calc 63.2 Estimated GFR > 60 Random Glucose 97 (60-115) mg/dL Lactic Acid (0.5-2.0) mmol/L Calcium 9.7 (8.4-10.2) mg/dL Magnesium 2.2 (1.6-2.6) mg/dL Total Bilirubin 0.5 (0.0-1.0) mg/dL AST 19 (5-31) U/L ALT 11 (0-31) U/L Alkaline Phosphatase 116 (39-117) U/L Total Protein 7.1 (6.5-8.0) g/dL Albumin 4.4 (3.5-5.0) g/dL Lipase 12 (8-78) U/L Urine Color Urine Appearance Urine pH (5.0-8.0) Ur Specific [place] (1.005-1.025) Urine Protein (NEG-TRACE) MG/DL Urine Glucose (UA) (NEG) MG/DL Urine Ketones (NEG) MG/DL Urine Blood (NEG) Urine Nitrite (NEG) Ur Leukocyte Esterase (NEG) 02/24/21 02/24/21 Range/Units 11:30 13:37 WBC (4.8-10.8) X10*3/uL RBC (4.20-5.50) X10*6/uL Hgb (12.0-16.0) g/dl Hct (37-47) % MCV (80-98) fL MCH (27.0-33.0) pg MCHC (31.0-35.0) g/dl RDW (11.0-16.0) % Plt Count (160-400) X10*3/uL MPV (9.4-12.3) fL Immature Gran % (Auto) (0.0-0.4) % Neut % (Auto) (45-73) % Lymph % (Auto) (20-40) % [place] % (Auto) (2-11) % Eos % (Auto) (0-4) % Baso % (Auto) (0-2) % Lymph # (Auto) (1.2-4.9) X10*3/uL [place] # (Auto) (0.1-1.2) X10*3/uL Eos # (Auto) (0.0-0.4) X10*3/uL Baso # (Auto) (0.0-0.2) X10*3/uL Abs Immat Gran (auto) (0.00-0.03) X10*3/uL Absolute Neuts (auto) (2.0-8.3) X10*3/uL Absolute Nucleated RBC (0.0-0.012) X10*3/uL Nucleated RBC % (auto) (0.0-0.2) /100WBC Smear Tech's Comments PT (10.8-13.0) SEC INR (0.9-1.1) Sodium (135-145) mmol/L Potassium (3.3-5.1) mmol/L Chloride (96-108) mmol/L Carbon Dioxide (22-29) mmol/L Anion Gap (12-20) BUN (9-16) mg/dL Creatinine (0.5-1.4) mg/dL Estim Creat Clear Calc Estimated GFR Random Glucose (60-115) mg/dL Lactic Acid 0.5 (0.5-2.0) mmol/L Calcium (8.4-10.2) mg/dL Magnesium (1.6-2.6) mg/dL Total Bilirubin (0.0-1.0) mg/dL AST (5-31) U/L ALT (0-31) U/L Alkaline Phosphatase (39-117) U/L Total Protein (6.5-8.0) g/dL Albumin (3.5-5.0) g/dL Lipase (8-78) U/L Urine Color YELLOW Urine Appearance CLEAR Urine pH 7.0 (5.0-8.0) Ur Specific [place] 1.010 (1.005-1.025) Urine Protein NEG (NEG-TRACE) MG/DL Urine Glucose (UA) NEG (NEG) MG/DL Urine Ketones NEG (NEG) MG/DL Urine Blood NEG (NEG) Urine Nitrite NEG (NEG) Ur Leukocyte Esterase NEG (NEG) <ROMAINE Pham - Last Filed: 02/24/21 16:59> Lab Results 02/24/21 02/24/21 02/24/21 Range/Units 11:30 11:30 11:30 WBC 3.6 L (4.8-10.8) X10*3/uL RBC 3.91 L (4.20-5.50) X10*6/uL Hgb 11.7 L (12.0-16.0) g/dl Hct 36.4 L (37-47) % MCV 93.1 (80-98) fL MCH 29.9 (27.0-33.0) pg MCHC 32.1 (31.0-35.0) g/dl RDW 13.2 (11.0-16.0) % Plt Count 134 L D (160-400) X10*3/uL MPV 11.7 (9.4-12.3) fL Immature Gran % (Auto) 0.3 (0.0-0.4) % Neut % (Auto) 60.2 (45-73) % Lymph % (Auto) 30.5 (20-40) % [place] % (Auto) 6.7 (2-11) % Eos % (Auto) 1.7 (0-4) % Baso % (Auto) 0.6 (0-2) % Lymph # (Auto) 1.1 L (1.2-4.9) X10*3/uL [place] # (Auto) 0.2 (0.1-1.2) X10*3/uL Eos # (Auto) 0.1 (0.0-0.4) X10*3/uL Baso # (Auto) 0.0 (0.0-0.2) X10*3/uL Abs Immat Gran (auto) 0.01 (0.00-0.03) X10*3/uL Absolute Neuts (auto) 2.2 (2.0-8.3) X10*3/uL Absolute Nucleated RBC 0.000 (0.0-0.012) X10*3/uL Nucleated RBC % (auto) 0.0 (0.0-0.2) /100WBC Smear Tech's Comments Not Reportable PT 11.9 (10.8-13.0) SEC INR 1.0 (0.9-1.1) Sodium 141 (135-145) mmol/L Potassium 5.3 H D (3.3-5.1) mmol/L Chloride 103 (96-108) mmol/L Carbon Dioxide 32 H (22-29) mmol/L Anion Gap 11 L (12-20) BUN 18 H (9-16) mg/dL Creatinine 0.78 (0.5-1.4) mg/dL Estim Creat Clear Calc 63.2 Estimated GFR > 60 Random Glucose 97 (60-115) mg/dL Lactic Acid (0.5-2.0) mmol/L Calcium 9.7 (8.4-10.2) mg/dL Magnesium 2.2 (1.6-2.6) mg/dL Total Bilirubin 0.5 (0.0-1.0) mg/dL AST 19 (5-31) U/L ALT 11 (0-31) U/L Alkaline Phosphatase 116 (39-117) U/L Total Protein 7.1 (6.5-8.0) g/dL Albumin 4.4 (3.5-5.0) g/dL Lipase 12 (8-78) U/L Urine Color Urine Appearance Urine pH (5.0-8.0) Ur Specific [place] (1.005-1.025) Urine Protein (NEG-TRACE) MG/DL Urine Glucose (UA) (NEG) MG/DL Urine Ketones (NEG) MG/DL Urine Blood (NEG) Urine Nitrite (NEG) Ur Leukocyte Esterase (NEG) 02/24/21 02/24/21 Range/Units 11:30 13:37 WBC (4.8-10.8) X10*3/uL RBC (4.20-5.50) X10*6/uL Hgb (12.0-16.0) g/dl Hct (37-47) % MCV (80-98) fL MCH (27.0-33.0) pg MCHC (31.0-35.0) g/dl RDW (11.0-16.0) % Plt Count (160-400) X10*3/uL MPV (9.4-12.3) fL Immature Gran % (Auto) (0.0-0.4) % Neut % (Auto) (45-73) % Lymph % (Auto) (20-40) % [place] % (Auto) (2-11) % Eos % (Auto) (0-4) % Baso % (Auto) (0-2) % Lymph # (Auto) (1.2-4.9) X10*3/uL [place] # (Auto) (0.1-1.2) X10*3/uL Eos # (Auto) (0.0-0.4) X10*3/uL Baso # (Auto) (0.0-0.2) X10*3/uL Abs Immat Gran (auto) (0.00-0.03) X10*3/uL Absolute Neuts (auto) (2.0-8.3) X10*3/uL Absolute Nucleated RBC (0.0-0.012) X10*3/uL Nucleated RBC % (auto) (0.0-0.2) /100WBC Smear Tech's Comments PT (10.8-13.0) SEC INR (0.9-1.1) Sodium (135-145) mmol/L Potassium (3.3-5.1) mmol/L Chloride (96-108) mmol/L Carbon Dioxide (22-29) mmol/L Anion Gap (12-20) BUN (9-16) mg/dL Creatinine (0.5-1.4) mg/dL Estim Creat Clear Calc Estimated GFR Random Glucose (60-115) mg/dL Lactic Acid 0.5 (0.5-2.0) mmol/L Calcium (8.4-10.2) mg/dL Magnesium (1.6-2.6) mg/dL Total Bilirubin (0.0-1.0) mg/dL AST (5-31) U/L ALT (0-31) U/L Alkaline Phosphatase (39-117) U/L Total Protein (6.5-8.0) g/dL Albumin (3.5-5.0) g/dL Lipase (8-78) U/L Urine Color YELLOW Urine Appearance CLEAR Urine pH 7.0 (5.0-8.0) Ur Specific [place] 1.010 (1.005-1.025) Urine Protein NEG (NEG-TRACE) MG/DL Urine Glucose (UA) NEG (NEG) MG/DL Urine Ketones NEG (NEG) MG/DL Urine Blood NEG (NEG) Urine Nitrite NEG (NEG) Ur Leukocyte Esterase NEG (NEG) <Ilsa Navraro, DIP TANKER - Last Filed: 02/24/21 18:49> Lab Results 02/24/21 02/24/21 02/24/21 Range/Units 11:30 11:30 11:30 WBC 3.6 L (4.8-10.8) X10*3/uL RBC 3.91 L (4.20-5.50) X10*6/uL Hgb 11.7 L (12.0-16.0) g/dl Hct 36.4 L (37-47) % MCV 93.1 (80-98) fL MCH 29.9 (27.0-33.0) pg MCHC 32.1 (31.0-35.0) g/dl RDW 13.2 (11.0-16.0) % Plt Count 134 L D (160-400) X10*3/uL MPV 11.7 (9.4-12.3) fL Immature Gran % (Auto) 0.3 (0.0-0.4) % Neut % (Auto) 60.2 (45-73) % Lymph % (Auto) 30.5 (20-40) % [place] % (Auto) 6.7 (2-11) % Eos % (Auto) 1.7 (0-4) % Baso % (Auto) 0.6 (0-2) % Lymph # (Auto) 1.1 L (1.2-4.9) X10*3/uL [place] # (Auto) 0.2 (0.1-1.2) X10*3/uL Eos # (Auto) 0.1 (0.0-0.4) X10*3/uL Baso # (Auto) 0.0 (0.0-0.2) X10*3/uL Abs Immat Gran (auto) 0.01 (0.00-0.03) X10*3/uL Absolute Neuts (auto) 2.2 (2.0-8.3) X10*3/uL Absolute Nucleated RBC 0.000 (0.0-0.012) X10*3/uL Nucleated RBC % (auto) 0.0 (0.0-0.2) /100WBC Smear Tech's Comments Not Reportable PT 11.9 (10.8-13.0) SEC INR 1.0 (0.9-1.1) Sodium 141 (135-145) mmol/L Potassium 5.3 H D (3.3-5.1) mmol/L Chloride 103 (96-108) mmol/L Carbon Dioxide 32 H (22-29) mmol/L Anion Gap 11 L (12-20) BUN 18 H (9-16) mg/dL Creatinine 0.78 (0.5-1.4) mg/dL Estim Creat Clear Calc 63.2 Estimated GFR > 60 Random Glucose 97 (60-115) mg/dL Lactic Acid (0.5-2.0) mmol/L Calcium 9.7 (8.4-10.2) mg/dL Magnesium 2.2 (1.6-2.6) mg/dL Total Bilirubin 0.5 (0.0-1.0) mg/dL AST 19 (5-31) U/L ALT 11 (0-31) U/L Alkaline Phosphatase 116 (39-117) U/L Total Protein 7.1 (6.5-8.0) g/dL Albumin 4.4 (3.5-5.0) g/dL Lipase 12 (8-78) U/L Urine Color Urine Appearance Urine pH (5.0-8.0) Ur Specific [place] (1.005-1.025) Urine Protein (NEG-TRACE) MG/DL Urine Glucose (UA) (NEG) MG/DL Urine Ketones (NEG) MG/DL Urine Blood (NEG) Urine Nitrite (NEG) Ur Leukocyte Esterase (NEG) 02/24/21 02/24/21 Range/Units 11:30 13:37 WBC (4.8-10.8) X10*3/uL RBC (4.20-5.50) X10*6/uL Hgb (12.0-16.0) g/dl Hct (37-47) % MCV (80-98) fL MCH (27.0-33.0) pg MCHC (31.0-35.0) g/dl RDW (11.0-16.0) % Plt Count (160-400) X10*3/uL MPV (9.4-12.3) fL Immature Gran % (Auto) (0.0-0.4) % Neut % (Auto) (45-73) % Lymph % (Auto) (20-40) % [place] % (Auto) (2-11) % Eos % (Auto) (0-4) % Baso % (Auto) (0-2) % Lymph # (Auto) (1.2-4.9) X10*3/uL [place] # (Auto) (0.1-1.2) X10*3/uL Eos # (Auto) (0.0-0.4) X10*3/uL Baso # (Auto) (0.0-0.2) X10*3/uL Abs Immat Gran (auto) (0.00-0.03) X10*3/uL Absolute Neuts (auto) (2.0-8.3) X10*3/uL Absolute Nucleated RBC (0.0-0.012) X10*3/uL Nucleated RBC % (auto) (0.0-0.2) /100WBC Smear Tech's Comments PT (10.8-13.0) SEC INR (0.9-1.1) Sodium (135-145) mmol/L Potassium (3.3-5.1) mmol/L Chloride (96-108) mmol/L Carbon Dioxide (22-29) mmol/L Anion Gap (12-20) BUN (9-16) mg/dL Creatinine (0.5-1.4) mg/dL Estim Creat Clear Calc Estimated GFR Random Glucose (60-115) mg/dL Lactic Acid 0.5 (0.5-2.0) mmol/L Calcium (8.4-10.2) mg/dL Magnesium (1.6-2.6) mg/dL Total Bilirubin (0.0-1.0) mg/dL AST (5-31) U/L ALT (0-31) U/L Alkaline Phosphatase (39-117) U/L Total Protein (6.5-8.0) g/dL Albumin (3.5-5.0) g/dL Lipase (8-78) U/L Urine Color YELLOW Urine Appearance CLEAR Urine pH 7.0 (5.0-8.0) Ur Specific [place] 1.010 (1.005-1.025) Urine Protein NEG (NEG-TRACE) MG/DL Urine Glucose (UA) NEG (NEG) MG/DL Urine Ketones NEG (NEG) MG/DL Urine Blood NEG (NEG) Urine Nitrite NEG (NEG) Ur Leukocyte Esterase NEG (NEG) <Branden Freeman MD - Last Filed: 03/29/21 19:15> Imaging Data CT scan abdomen pelvis with IV contrast: Attestation: I personally reviewed and interpreted this imaging study as follows: <ROMAINE Pham - Last Filed: 02/24/21 16:59> Radiologist's impression: FINDINGS: LUNG BASES: There is mild atelectasis or fibrosis in both lung bases. The heart size is normal. LIVER, GALLBLADDER, AND BILIARY TREE: The liver is normal in enlarged in size measuring 18.5 cm. It is normal shape, and attenuation. There is a 1.3 cm hypodensity right hepatic lobe likely simple cyst. No additional lesions seen. No intrahepatic ductal dilatation seen. The gallbladder is unremarkable with no evidence of radiopaque gallstones, gallbladder wall thickening, or obvious pericholecystic inflammatory changes. PANCREAS: Unremarkable. SPLEEN: Unremarkable. ADRENAL GLANDS: Unremarkable. KIDNEYS AND URETERS: The kidneys are normal in size, shape, and attenuation. There is a nonobstructing 4 mm radiopaque calculi upper and midpole left kidney. No caliectasis or hydronephrosis seen. There is no radiopaque right renal calculi seen. BLADDER: Unremarkable. GASTROINTESTINAL TRACT: There is moderate scattered stool seen throughout the colon without significant distention. The small bowel loops are normal caliber. Appendix there is not visualized. There is diffuse colonic diverticulosis without diverticulitis. ABDOMINAL WALL: No significant hernia is appreciated. LYMPH NODES: Normal. VASCULAR: There is mild atherosclerotic dilation of mid abdominal aorta measuring 3.0 x 3.1 cm on axial image 36/3 PELVIC VISCERA: Unremarkable. OSSEOUS STRUCTURES: The uterus is midline and appears unremarkable. No free fluid. No adnexal mass or abnormal lymphadenopathy. Carotid calcifications are seen at the L4-L5 L5-S1 disc levels. There is mild ventral spondylosis lower dorsal and upper lumbar spine. No lytic process. CT/CT abdomen pelvis w con IMPRESSION: Colonic diverticulosis without diverticulitis. Moderate constipation. Nonobstructive left renal calculi without caliectasis or hydronephrosis. There are extrarenal bilateral kidney pelvises. Mild hepatomegaly. Mild atherosclerotic dilation of mid abdominal aorta as described above on. <ROMAINE Pham - Last Filed: 02/24/21 16:59> Critical Care Time Critical Care Time Critical Care Time: Yes <ROMAINE Pham - Last Filed: 02/24/21 16:59> Total Critical Care Time: 60 <ROMAINE Pham Last Filed: 02/24/21 16:59> Attestation: I personally attest to this time spent taking care of the patient <ROMAINE Pham Last Filed: 02/24/21 16:59> Discharge Plan Discharge Clinical Impression: Acute hyperkalemia, Calculus, renal, Constipation, Diverticulosis, Hepatomegaly <ROMAINE Pham Last Filed: 02/24/21 16:59> Patient Disposition: Home, Self-Care <ROMAINE Pham Last Filed: 02/24/21 16:59> Instructions: Constipation (ED), Diverticulosis (ED), High Fiber Diet (ED), Hyperkalemia (ED) <ROMAINE Pham Last Filed: 02/24/21 16:59> Prescriptions: New docusate sodium [Colace] 100 mg capsule 100 mg PO BID PRN (Reason: Constipation) Qty: 14 RF: 0 No Action pantoprazole [Protonix] 40 mg tablet,delayed release (DR/EC) 40 mg PO DAILY Qty: 30 RF: 2 ondansetron HCl 8 mg tablet 8 mg PO Q8H PRN (Reason: nausea and vomiting) Qty: 20 RF: 0 ondansetron 4 mg tablet,disintegrating 4 mg PO Q6H PRN (Reason: nausea and vomiting) Qty: 20 RF: 0 famotidine 20 mg tablet 20 mg PO DAILY Qty: 14 RF: 0 famotidine [Pepcid] 40 mg tablet 40 mg PO BEDTIME Qty: 30 RF: 2 hyoscyamine sulfate 0.125 mg tablet 0.125 mg PO BID-QID PRNRF: 0 alprazolam 0.25 mg tablet 0.25 mg PO TID PRNRF: 0 omeprazole 20 mg capsule,delayed release(DR/EC) 20 mg PO DAILY RF: 0 desvenlafaxine succinate 25 mg tablet extended release 24 hr 25 mg PO DAILY RF: 0 <ROMAINE Pahm Last Filed: 02/24/21 16:59> Referrals: Bandar eRnteria MD [Primary Care Provider] - 2 days <ROMAINE Pham - Last Filed: 02/24/21 16:59> Interventions: ED Discharge Assessment Last Done: 02/24/21 19:34 <ROMAINE Pham - Last Filed: 02/24/21 16:59> Discharge Date/Time: 02/24/21 19:35 <ROMAINE Pham - Last Filed: 02/24/21 16:59> Print Language: Icelandic <ROMAINE Pham - Last Filed: 02/24/21 16:59> [facility] Past Medical History Attestation statement: The following information was validated with the patient. <ROMAINE Pham - Last Filed: 02/24/21 16:59> Medical History: Medical History (Updated 03/11/21 @ 11:56 by Rachelle Moreira MD) Anxiety Diverticulitis GERD (gastroesophageal reflux disease) Heart murmur Irritable bowel <ROMAINE Pham - Last Filed: 02/24/21 16:59> Surgical History: Surgical History (Updated 03/11/21 @ 09:29 by Rachelle Moreira MD) History of appendectomy <ROMAINE Pham - Last Filed: 02/24/21 16:59> Social History Social History: Social History Alcohol intake: former Patient Tobacco Use Status: Never used Tobacco <ROMAINE Pham - Last Filed: 02/24/21 16:59>
[2021-02-24] MEDS: iohexoL 350 MG/ML 100 ML INFUS..BTL IV (12:49)
[2021-02-24 14:06] LABS: Lactic Acid 0.5 mmol/L (0.5-2.0)
[2021-02-24] MEDS: ondansetron HCL 4 MG/2 ML VIAL IVPUSH (15:00)
[2021-02-24] MEDS: Sodium Polystyrene Sulfon/Sorb 15 GM/60 ML ORAL.SUSP 45 GM PO (15:01)
[2021-02-24] MEDS: levoFLOXacin/D5W 750 MG/150 ML PIGGYBACK 100 MG IV (15:01)
[2021-02-24] MEDS: ALPRAZolam 0.25 MG TABLET PO (15:55)
--- NOTE | 2021-02-24 17:30 | MHC.CARE ---
I met with pt due to her presenting to ED tearful and several home stressors. Pt reports her just and her son who resides with her has several medical issues. She explains how overwhelming everything is and that her used to assist her with a lot of such as the grass and financial portion. Pt is pleasant and satisfied with how everyone has treated her before he passed, and how people have reached out to her offering her help and support. She is looking forward to being discharged and follow up with her providers. Pt does have a therapist. Pt thanked this underwriter mortgage loan. This underwriter mortgage loan provided supportive and active listening.
== END 2021-02-24 19:35 | disposition home or self-care (01) ==
PROVIDERS: Physician Assistant Medical; Emergency Provider Emergency Medicine; PCP Internal Medicine
DX: K59.00 Constipation, unspecified (principal); K57.92 Diverticulitis of intestine, part unspecified, without perforation or abscess without bleeding; R16.0 Hepatomegaly, not elsewhere classified; E87.5 Hyperkalemia; N20.0 Calculus of kidney; F41.9 Anxiety disorder, unspecified; D64.9 Anemia, unspecified; Z79.899 Other long term (current) drug therapy
CPT/HCPCS: 36415; 74177; 80053; 81003; 83605; 83690; 83735; 85025; 85610; 87040; 96361; 96365; 96375; 99285; 99291; J1956; J2405; Q9967

== ENCOUNTER → 2021-03-03 10:06 | Outpatient (REF) | payer MEDICARE, OTHER, SELFPAY ==
--- NOTE | 2021-03-03 10:16 | CA_ITS ---
Transthoracic Echocardiogram Patient (Last, First, Middle): Bella Henley G Gender: Female Date of : 1940 Age: 80 Procedure Date: 03/03/2021 Procedure Type: Transthoracic Echocardiogram Location: OP Height: 167.64 cm Weight: 85.28 kg BSA: 1.95 m2 Heart Rate: bpm BP: 130 / 82 mmHg Stores [employer]: TRIXIE Referring MD: Bandar Renteria MD Symptoms: MURMUR Study Quality: Technically Difficult Conclusions: - 1. Normal LV systolic function with grade 1 diastolic dysfunction 2. At least moderate aortic stenosis 3. Normal RV systolic pressure 4. No pericardial effusion Findings Left Ventricle Normal left ventricular size, thickness, and systolic function. The visually estimated ejection fraction is between 60-65%. Spectral Doppler is indicative of an impaired relaxation filling pattern. E/E prime ratio is <8, consistent with normal filling pressures. Evidence suggests grade I (mild) diastolic dysfunction. Right Ventricle Normal right ventricular cavity size and systolic function. Atria The left atrium is likely dilated. There is no evidence of interatrial shunt. The right atrium is normal in size. Aortic Valve There is moderate calcification of the aortic valve. There is severe thickening of the aortic valve. There is moderate aortic valve stenosis. The mean gradient is 35 mmHg. There is trace (trivial) aortic valve regurgitation. Mitral Valve There is mild anterior mitral leaflet thickening. There is moderate mitral annular calcification. There is trace mitral valve regurgitation. There is no mitral valve stenosis. Pulmonic Valve The pulmonic valve was not well visualized. Tricuspid Valve Likely normal tricuspid valve structure and function. There is trace tricuspid valve regurgitation. The right ventricular systolic pressure is normal. The right ventricular systolic pressure is 33 mmHg. Normal right atrial pressure. There is no evidence of pulmonary hypertension. Great Vessels All visible segments of the aorta are normal in size. The pulmonary artery was not well visualized. Venous The inferior vena cava is normal in size and collapses greater than 50% with inspiration. Pericardium/Pleural There is no evidence of pericardial effusion. Measurements M-Mode Liner Measurements Normals - Women/Men AOV Cusps: 0.50 1.5-2.6 cm/m2 2D Linear Measurements IVSd: 0.81 0.6-0.9/0.6-1.0 cm LVIDd: 4.33 3.9-5.3/4.2-5.9 cm LVIDd Index: 2.22 2.4-3.2/2.2-3.1 cm/m2 LVIDs: 2.38 2.0-3.6 cm LVPWd: 1.03 0.7-1.1 cm Ao Root: 3.80 2.1-3.5 cm LA Diam: 3.20 2.7-3.8/3.0-4.0 cm LAIDs Index: 1.64 1.5-2.3 cm/m2 LV Mass: 159.26 67-162/88-224 g LV Mass Index: 81.67 43-95/49-115 g/m2 LVOT Diam: 2.40 3.0+(-)1.3 cm 2D Systolic Function EF 4C: 69.10 >55% EF 2C: 60.40 >55% EF BiP: 64.30 >55% Mitral Valve MV Pk E: 0.67 MV PK A: 1.45 MV Decel Time: 196.00 E/A: 0.50 E'Lateral: 8.38 E'Medial: 5.66 E/E' Med: 11.80 E/E' Lat: 8.00 PHT: 57.00 MVA PHT: 3.86 Decel [place]: 3.41 Aortic Valve AoV Pk Anthony: 3.72 AoV Mn Anthony: 2.88 AoV VTI: 0.87 AoV Pk Grad: 68.00 Aov Mn Grad: 35.00 LULA Cont.VTI: 1.40 LVOT LVOT Pk Anthony: 1.41 LVOT Mn Anthony: 1.05 LVOT VTI: 0.30 LVOT Pk Grad: 8.00 LVOT Mn Grad: 5.00 LVOT Diam: 2.40 LVOT Area: 4.52 Diastolic Function MV Pk E: 0.67 MV Pk A: 1.45 E/A: 0.50 E'Medial: 5.66 E/E' Med: 11.80 E' Laterial: 8.38 E/E' Lat: 8.00 Tricuspid Valve TR Pk Anthony: 2.73 TR Pk Grad: 30.00 RA Press: 3.00 RVSP: 33.00 Great Vessels Aorta Ao Root-2D: 3.80 2.0-3.7 cm Ao Asc: 3.40 2.1-3.4 cm Ao Arch: 3.30 Pulmonary Valve PV Pk Anthony: 1.38 Peak PV Grad: 8.00 Updated in Other Vendor System with Status of Final Ceferino Alicia MD electronically signed on 03/03/2021 3:34:20 PM with status of Final
== END ==
LOC: HO.CARD 10:06
PROVIDERS: Visit Provider Internal Medicine
DX: R01.1 Cardiac murmur, unspecified (principal)
CPT/HCPCS: 93306

== ENCOUNTER 2021-03-11 08:34 | Emergency (ER) | payer MEDICARE, OTHER, SELFPAY ==
--- NOTE | ~2021-03-11 | CT_ITS ---
EXAMINATION: CT ABDOMEN AND PELVIS WITHOUT CONTRAST CLINICAL INFORMATION: Abdominal pain. Rule out diverticulitis. COMPARISON: February 24, 2021 and November 09, 2019 TECHNIQUE: Multidetector volumetric imaging was performed from the superior aspect of the liver through the pubic symphysis. Sagittal and coronal reformatted images were obtained on the technologist's workstation. This CT examination was performed using dose optimization techniques as appropriate, variously including the following: *Automated exposure control *Adjustment of mA and/or kV according to patient size (this includes techniques or standardized protocols for targeted exams where dose is matched to indication/reason for exam; i.e. extremities or head) *Use of iterative reconstruction technique DLP: 742 mGy-cm FINDINGS: LUNG BASES: No suspicious lung base nodules identified. No pleural or pericardial effusion. Coronary artery calcification is present. Heart normal size. LIVER, GALLBLADDER, AND BILIARY TREE: There is a 1.2 cm cyst seen in the dome of the right lobe of liver. No definite abnormal solid mass or intrahepatic bile duct dilatation is seen. Liver measures 18 cm in vertical span. The gallbladder is unremarkable with no evidence of radiopaque gallstones, gallbladder wall thickening, or obvious pericholecystic inflammatory changes. PANCREAS: Unremarkable. SPLEEN: Unremarkable. ADRENAL GLANDS: Unremarkable. KIDNEYS AND URETERS: The right kidney is normal in size, shape, and attenuation. No hydronephrosis, hydroureter, or calculi seen. No perinephric stranding. There is a 4 mm nonobstructing calculus seen upper pole of the left kidney. There is an extrarenal pelvis with mild fullness of the collecting system. No ureteral calculi identified. There is a 2 mm nonobstructing left lower pole calculus. BLADDER: Appearance of mildly thickened wall which may be due to some degree of decompression. GASTROINTESTINAL TRACT: No dilated loops of large or small bowel are evident. No free air is seen. No free fluid is appreciated. There is diverticular disease of the sigmoid colon with some wall thickening. No abnormal fluid collection is appreciated. I cannot say that there is acute diverticulitis present. No evidence of acute appendicitis. ABDOMINAL WALL: No significant hernia is appreciated. LYMPH NODES: No lymphadenopathy appreciated. VASCULAR: There is a small infrarenal abdominal aortic aneurysm measuring 3.1 cm in AP dimension. The abdominal aorta has calcified plaque present. There is calcification involving the ostia of the visceral vessels.. PELVIC VISCERA: Unremarkable. OSSEOUS STRUCTURES: Osteopenia is present. No suspicious destructive bony lesions identified. There is degenerative disc disease seen at the L5-S1 level. Osteitis pubis noted. CT/CT abdomen pelvis wo con IMPRESSION: Marked sigmoid diverticulosis with wall thickening. No definite pericolonic inflammatory change or drainable abscess collection identified to suggest acute diverticulitis. 3.1 cm infrarenal abdominal aortic aneurysm. 1.2 cm hepatic cyst. Left renal calculi.
[2021-03-11 08:37] VITALS: BP 163/77; PULSE 92; RESP 17; TEMP 37.1; O2SAT 97; BMI 29.7
--- NOTE | 2021-03-11 09:26 | ED_ITS ---
HPI - Abdominal Pain General Chief Complaint: Abdominal Pain Stated Complaint: abd pain Time Seen by Provider: 03/11/21 09:21 Source: patient Mode of arrival: ambulatory Limitations: no limitations History of Present Illness HPI narrative: 80-year-old female came in for evaluation of abdominal pain. This is a 80-year-old female came in with left-sided abdominal pain, no radiation of the pain, Describes the pain as constant and moderate 5/10. pain is associated with nausea, but no vomiting or fever. Nothing makes the pain worse or better, patient had similar pain 2 weeks ago was evaluated in this ED with CT of the abdomen and labs, CT was unremarkable for intra-abdominal pathology, but patient had incidental hyperkalemia. Related Data Home Medications Medication Instructions Recorded Confirmed alprazolam 0.25 mg tablet 0.25 mg PO TID PRN 08/07/20 01/28/21 desvenlafaxine succinate 25 mg 25 mg PO DAILY 08/07/20 01/28/21 tablet,extended release 24 hr estradiol g VAGINAL 08/07/20 01/28/21 omeprazole 20 mg capsule,delayed 20 mg PO DAILY 08/07/20 01/28/21 release Previous Rx's Medication Instructions Recorded pantoprazole [Protonix] 40 mg PO DAILY #30 tab 06/30/20 sucralfate 1 g PO BID #60 tab 06/30/20 ondansetron HCl 8 mg tablet 8 mg PO Q8H PRN #20 tab 10/19/20 famotidine 20 mg tablet 20 mg PO DAILY #14 tab 11/12/20 ondansetron 4 mg disintegrating 4 mg PO Q6H PRN #20 tab 11/12/20 tablet doxycycline hyclate 100 mg capsule 100 mg PO BID 7 Days #14 cap 12/01/20 famotidine 40 mg tablet 40 mg PO BEDTIME #30 tab 01/28/21 docusate sodium [Colace] 100 mg PO BID PRN #14 cap 02/24/21 levofloxacin 750 mg PO DAILY 5 Days #5 tab 02/24/21 amoxicillin-pot clavulanate 1 tab PO BID #14 tab 03/11/21 [Augmentin] Allergies Allergy/AdvReac Type Severity Reaction Status Date / Time Sulfa (Sulfonamide Allergy Intermediate RASH Verified 03/11/21 08:37 Antibiotics) amoxicillin [From AUGMENTIN] Allergy Unknown PER H&P Verified 03/11/21 08:37 clavulanic acid Allergy Unknown PER H&P Verified 03/11/21 08:37 [From AUGMENTIN] garlic [GARLIC] Allergy Unknown PER H&P Verified 03/11/21 08:37 metronidazole [From FLAGYL] Allergy Unknown OCULAR Verified 03/11/21 08:37 MIGRAINES penicillamine Allergy Unknown Unknown Verified 03/11/21 08:37 environmental Allergy Unknown Unknown Uncoded 03/11/21 08:37 flagyl Allergy Unknown Unknown Uncoded 03/11/21 08:37 From KEFLEX Allergy Unknown RASH Uncoded 05/21/20 15:15 Metoprolol Tartrate Allergy Unknown Unknown Uncoded 03/11/21 08:37 Sulfacet-R Allergy Unknown Unknown Uncoded 03/11/21 08:37 Review of Systems Review of Systems All other systems are reviewed and are negative Constitutional: Reports as per HPI and Reports no additional constitutional complaints Eyes: Reports as per HPI and Reports no additional eye complaints Reports system reviewed and no additional complaints, except as documented Cardiovascular: Reports as per HPI and Reports no additional cardiovascular complaints Respiratory: Reports as per HPI and Reports no additional respiratory complaints Gastrointestinal: Reports as per HPI and Reports no additional gastrointestinal complaints Genitourinary: Reports no additional female genitourinary complaints Musculoskeletal: Reports no additional musculoskeletal complaints Skin/Breast: Reports system reviewed and no additional complaints, except as docu Psychiatric: Reports no additional psychiatric complaints Endocrine: Reports no additional endocrine complaints Hematologic/Lymphatic: Reports no additional hematologic/lymphatic complaints Allergic/Immunologic: Reports no additional allergic/immunologic complaints Reports system reviewed and no additional complaints, except as documented and Reports Abnormal speech present Physical Exam Vital Signs: Vital Signs: Last Vital Signs Temp 98.8 F 03/11/21 08:37 Pulse 95 03/11/21 11:00 Resp 16 03/11/21 11:00 BP 164/93 H 03/11/21 11:00 Pulse Ox 98 03/11/21 11:00 Body Mass Index 29.7 vital signs have been reviewed as appeared to be correct. Blood pressure normal. Heart rate normal. Respiration rate normal. Temperature normal. Oxygen saturation normal. Appearance: Alert. Oriented X3. No acute distress. Head: Normal external exam. Normocephalic. Atraumatic. No Calvert signs noted. No raccoon eyes noted Eyes: PERRLA. EOMI. Conjunctiva and sclera normal. Eyelids normal. ENT: TM's Normal. Pharynx normal. Uvula midline. Moist mucous membranes. No trismus noted. No drooling noted. No muffled voice noted. Neck: Normal inspection. Neck supple. FROM. No adenopathy. Thyroid Normal. No meningeal signs. No neck mass noted. CVS: Normal heart rate and rhythm. Heart sound normal. No murmurs noted. Pulses normal throughout. Respiratory: No respiratory distress. Painless inspiration. Breath sounds normal . No wheezes/rales/rhonchi noted. Chest nontender. No accessory muscle usage noted or decreased air movement noted. Abdomen: Soft, with mild tenderness for left side of the abdomen with no rebound tenderness or guarding. Bowel sounds normal in all 4 quadrants. No distention noted. No organomegaly noted. No visible injury noted. Back: No CVA tenderness. Full range of motion noted. Skin: Skin warm and dry. Normal skin color. Normal skin turgor. No rashes/lesions/lacerations noted. Extremities: No lower extremity edema. Extremities exhibit normal range of motion. Extremities nontender. Neuro: Oriented X 3. No motor deficit. No sensory deficit. Reflexes normal. Course Course Course Narrative: Assessment and plan. 80-year-old female with left-sided abdominal pain, patient has unremarkable labs. In CT showed sigmoid diverticulosis without diverticulitis, because patient's symptoms persisting for the past 2 weeks will cover patient with Augmentin for 1 week for maybe a subtle diverticulitis that causing patient's symptoms, patient confirmed that she is only allergic to Flagyl and she has taken Augmentin and amoxicillin in the past. And follow-up with apparatus engineering technologist. MDM - Abdominal Pain Lab Data Attestation: I reviewed the patient's lab results. Result diagrams: 03/11/21 09:37 03/11/21 09:37 Labs: Lab Results 03/11/21 03/11/21 03/11/21 Range/Units 09:36 09:37 09:37 WBC 3.9 L (4.8-10.8) X10*3/uL RBC 3.82 L (4.20-5.50) X10*6/uL Hgb 11.5 L (12.0-16.0) g/dl Hct 35.9 L (37-47) % MCV 94.0 (80-98) fL MCH 30.1 (27.0-33.0) pg MCHC 32.0 (31.0-35.0) g/dl RDW 13.4 (11.0-16.0) % Plt Count 122 L (160-400) X10*3/uL MPV 11.7 (9.4-12.3) fL Immature Gran % (Auto) 0.3 (0.0-0.4) % Neut % (Auto) 62.8 (45-73) % Lymph % (Auto) 27.4 (20-40) % [place] % (Auto) 6.2 (2-11) % Eos % (Auto) 2.8 (0-4) % Baso % (Auto) 0.5 (0-2) % Lymph # (Auto) 1.1 L (1.2-4.9) X10*3/uL [place] # (Auto) 0.2 (0.1-1.2) X10*3/uL Eos # (Auto) 0.1 (0.0-0.4) X10*3/uL Baso # (Auto) 0.0 (0.0-0.2) X10*3/uL Abs Immat Gran (auto) 0.01 (0.00-0.03) X10*3/uL Absolute Neuts (auto) 2.4 (2.0-8.3) X10*3/uL Absolute Nucleated RBC 0.000 (0.0-0.012) X10*3/uL Nucleated RBC % (auto) 0.0 (0.0-0.2) /100WBC Smear Tech's Comments Not Reportable Sodium 143 (135-145) mmol/L Potassium 4.7 (3.3-5.1) mmol/L Chloride 102 (96-108) mmol/L Carbon Dioxide 33 H (22-29) mmol/L Anion Gap 13 (12-20) BUN 16 (9-16) mg/dL Creatinine 0.83 (0.5-1.4) mg/dL Estim Creat Clear Calc 60.9 Estimated GFR > 60 Random Glucose 100 (60-115) mg/dL Calcium 9.9 (8.4-10.2) mg/dL Total Bilirubin 0.5 (0.0-1.0) mg/dL Direct Bilirubin 0.2 (0.0-0.5) mg/dL AST 24 (5-31) U/L ALT 18 (0-31) U/L Alkaline Phosphatase 111 (39-117) U/L Total Protein 7.5 (6.5-8.0) g/dL Albumin 4.4 (3.5-5.0) g/dL Lipase 13 (8-78) U/L Urine Color YELLOW Urine Appearance CLEAR Urine pH 6.0 (5.0-8.0) Ur Specific [place] 1.010 (1.005-1.025) Urine Protein NEG (NEG-TRACE) MG/DL Urine Glucose (UA) NEG (NEG) MG/DL Urine Ketones NEG (NEG) MG/DL Urine Blood NEG (NEG) Urine Nitrite NEG (NEG) Ur Leukocyte Esterase NEG (NEG) Imaging Data CT scan - abdomen: Radiologist's impression: Marked sigmoid diverticulosis with wall thickening. No definite pericolonic inflammatory change or drainable abscess collection identified to suggest acute diverticulitis. 3.1 cm infrarenal abdominal aortic aneurysm. 1.2 cm hepatic cyst. Left renal calculi. Discharge Plan Discharge Clinical Impression: Diverticulitis Patient Disposition: Home, Self-Care Instructions: Diverticulitis (ED), Diverticulitis Diet (ED) Prescriptions: New amoxicillin-pot clavulanate [Augmentin] 875-125 mg tablet 1 tab PO BID Qty: 14 RF: 0 No Action pantoprazole [Protonix] 40 mg tablet,delayed release (DR/EC) 40 mg PO DAILY Qty: 30 RF: 2 sucralfate 1 gram tablet 1 g PO BID Qty: 60 RF: 0 levofloxacin 750 mg tablet 750 mg PO DAILY 5 Days Qty: 5 RF: 0 docusate sodium [Colace] 100 mg capsule 100 mg PO BID PRN (Reason: Constipation) Qty: 14 RF: 0 ondansetron HCl 8 mg tablet 8 mg PO Q8H PRN (Reason: nausea and vomiting) Qty: 20 RF: 0 ondansetron 4 mg tablet,disintegrating 4 mg PO Q6H PRN (Reason: nausea and vomiting) Qty: 20 RF: 0 famotidine 20 mg tablet 20 mg PO DAILY Qty: 14 RF: 0 doxycycline hyclate 100 mg capsule 100 mg PO BID 7 Days Qty: 14 RF: 0 famotidine [Pepcid] 40 mg tablet 40 mg PO BEDTIME Qty: 30 RF: 2 alprazolam 0.25 mg tablet 0.25 mg PO TID PRNRF: 0 omeprazole 20 mg capsule,delayed release(DR/EC) 20 mg PO DAILY RF: 0 desvenlafaxine succinate 25 mg tablet extended release 24 hr 25 mg PO DAILY RF: 0 estradiol 0.01 % (0.1 mg/gram) cream vaginal RF: 0 Referrals: Bandar Renteria MD [Primary Care Provider] - 2 days Anatoliy Escobar [Physician] - 2 days [facility] Past Medical History Medical History (Updated 03/11/21 @ 11:56 by Rachelle Moreira MD) Anxiety Diverticulitis GERD (gastroesophageal reflux disease) Heart murmur Irritable bowel Surgical History (Updated 03/11/21 @ 09:29 by Rachelle Moreira MD) History of appendectomy Social History Social History Alcohol intake: former Patient Tobacco Use Status: Never used Tobacco Advance Directives: Yes Advance Directives Information Provided: Yes Advance Directives on File: No
[2021-03-11] MEDS: Morphine Sulfate 2 MG/ML CARTRIDGE 0.5 MG IVPUSH (09:41)
[2021-03-11 09:43] LABS: Glucose Urine UA NEG (NEG); Leukocyte Esterase Urine NEG (NEG); Nitrite Urine NEG (NEG); Urine Blood NEG (NEG); Urine Ketones NEG (NEG); Urine Protein NEG (NEG-TRACE)
[2021-03-11 09:44] LABS: Appearance Urine CLEAR; Color Urine YELLOW
[2021-03-11] MEDS: 0.9 % Sodium Chloride 1,000 ML 999 ML IVCONT (09:44)
[2021-03-11 09:47] LABS: Hemoglobin 11.5 g/dl (12.0-16.0); Imm Gran Abs Auto 0.01 X10*3/uL (0.00-0.03); Imm Gran Pct Auto 0.3 % (0.0-0.4); MANUAL DIFF FLAG SCAN; PLT CLUMP 1; SCAN SMEAR FLAG 1
[2021-03-11 09:49] LABS: Basophils Percent Auto 0.5 % (0-2); Eosinophils Absolute Auto 0.1 X10*3/uL (0.0-0.4); Eosinophils Percent Auto 2.8 % (0-4); Hematocrit 35.9 % (37-47); Lymphocytes Absolute Auto 1.1 X10*3/uL (1.2-4.9); Lymphocytes Percent Auto 27.4 % (20-40); Mean Corpuscular Hemoglobin 30.1 pg (27.0-33.0); Mean Platelet Volume 11.7 fL (9.4-12.3); Monocytes Absolute Auto 0.2 X10*3/uL (0.1-1.2); Monocytes Percent Auto 6.2 % (2-11); Neutrophils Absolute Auto 2.4 X10*3/uL (2.0-8.3); Neutrophils Percent Auto 62.8 % (45-73); Platelet Count 122 X10*3/uL (160-400); Red Blood Count 3.82 X10*6/uL (4.20-5.50); Red Cell Distribution Width 13.4 % (11.0-16.0); White Blood Count 3.9 X10*3/uL (4.8-10.8)
[2021-03-11 09:55] VITALS: BP 155/98; PULSE 82; RESP 18; O2SAT 97
[2021-03-11 10:14] LABS: Alanine Aminotransferase 18 U/L (0-31); Albumin Level 4.4 g/dL (3.5-5.0); Alkaline Phosphatase 111 U/L (39-117); Anion Gap 13 (12-20); Aspartate Amino Transferase 24 U/L (5-31); Bilirubin Direct 0.2 mg/dL (0.0-0.5); Bilirubin Total 0.5 mg/dL (0.0-1.0); Blood Urea Nitrogen 16 mg/dL (9-16); Calcium 9.9 mg/dL (8.4-10.2); Carbon Dioxide 33 mmol/L (22-29); Chloride 102 mmol/L (96-108); Creatinine Clr Calc Pharmacy 60.9; Estimated Glomerular Filt Rate > 60; Glucose Random 100 mg/dL (60-115); Lipase 13 U/L (8-78); Potassium 4.7 mmol/L (3.3-5.1); Sodium 143 mmol/L (135-145); Total Protein 7.5 g/dL (6.5-8.0)
[2021-03-11 11:00] VITALS: BP 164/93; PULSE 95; RESP 16; O2SAT 98
[2021-03-11] MEDS: Amoxicillin/Potassium Clav 875 MG TABLET PO (11:55)
== END 2021-03-11 12:35 | disposition home or self-care (01) ==
PROVIDERS: Emergency Provider Emergency Medicine; PCP Internal Medicine
DX: K57.92 Diverticulitis of intestine, part unspecified, without perforation or abscess without bleeding (principal); K57.30 Diverticulosis of large intestine without perforation or abscess without bleeding
CPT/HCPCS: 36415; 74176; 80048; 80076; 81003; 83690; 85025; 96361; 96374; 99284; J2270

== ENCOUNTER 2021-03-22 14:56 | Outpatient (REF) | payer MEDICARE, OTHER, SELFPAY ==
[2021-03-22 17:27] LABS: MANUAL DIFF FLAG NO
[2021-03-22 17:29] LABS: Basophils Percent Auto 0.8 % (0-2); Eosinophils Absolute Auto 0.1 X10*3/uL (0.0-0.4); Eosinophils Percent Auto 2.1 % (0-4); Hematocrit 34.5 % (37-47); Hemoglobin 11.2 g/dl (12.0-16.0); Imm Gran Abs Auto 0.01 X10*3/uL (0.00-0.03); Imm Gran Pct Auto 0.2 % (0.0-0.4); Lymphocytes Absolute Auto 1.3 X10*3/uL (1.2-4.9); Lymphocytes Percent Auto 24.7 % (20-40); Mean Corpuscular HGB Conc 32.5 g/dl (31.0-35.0); Mean Corpuscular Hemoglobin 30.3 pg (27.0-33.0); Mean Corpuscular Volume 93.2 fL (80-98); Mean Platelet Volume 12.8 fL (9.4-12.3); Monocytes Absolute Auto 0.3 X10*3/uL (0.1-1.2); Monocytes Percent Auto 5.8 % (2-11); Neutrophils Absolute Auto 3.5 X10*3/uL (2.0-8.3); Neutrophils Percent Auto 66.4 % (45-73); Platelet Count 133 X10*3/uL (160-400); Red Cell Distribution Width 13.3 % (11.0-16.0); White Blood Count 5.2 X10*3/uL (4.8-10.8)
[2021-03-22 17:41] LABS: Glucose Urine UA NEG (NEG); Leukocyte Esterase Urine NEG (NEG); Nitrite Urine NEG (NEG); Specific Gravity - Urine 1.025 (1.005-1.025); Urine Blood NEG (NEG); Urine Ketones NEG (NEG); Urine Protein NEG (NEG-TRACE)
[2021-03-22 17:44] LABS: Appearance Urine CLEAR; Color Urine YELLOW
[2021-03-22 18:12] LABS: Iron 64 mcg/dL (30-160); Percent Iron Saturation 21 % (15-50); Total Iron Binding Capacity 309 mcg/dL (228-428); Unsaturated Iron Binding 245 ug/dL
[2021-03-22 18:24] LABS: Lactate Dehydrogenase 208 U/L (122-220); Vitamin B12 369 pg/mL (200-900)
== END 2021-03-22 14:57 | disposition home or self-care (01) ==
LOC: HO.HMGCLDS 14:56
PROVIDERS: PCP Internal Medicine; Visit Provider Internal Medicine
DX: D69.6 Thrombocytopenia, unspecified (principal); D64.9 Anemia, unspecified
CPT/HCPCS: 36415; 81003; 82607; 83540; 83615; 85025; 87086

== ENCOUNTER 2021-03-30 15:05 | Outpatient (REF) | payer MEDICARE, OTHER, SELFPAY ==
[2021-03-30 15:51] LABS: Influenza A PCR NEGATIVE (Negative); Influenza B PCR NEGATIVE (Negative); Resp Syncy Virus RNA Qual PCR NEGATIVE (Negative); SARS COV2 PCR INHOUSE NEGATIVE (Negative)
== END 2021-03-30 15:06 | disposition home or self-care (01) ==
LOC: HO.LNP 15:05
PROVIDERS: Visit Provider Internal Medicine
DX: R51.9 Headache, unspecified (principal); R09.81 Nasal congestion; Z20.822 Contact with and (suspected) exposure to COVID-19
CPT/HCPCS: 0241U

== ENCOUNTER 2021-04-03 11:30 | Emergency (ER) | payer MEDICARE, OTHER, SELFPAY ==
--- NOTE | ~2021-04-03 | US_ITS ---
EXAMINATION: US ABDOMEN LIMITED CLINICAL INFORMATION: Persistent nausea and vomiting.. COMPARISON: CT of the abdomen and pelvis done on 03/11/2021. TECHNIQUE: Real-time imaging of the right upper quadrant abdominal viscera. FINDINGS: PANCREAS: Unremarkable. LIVER: 1.2 cm maximum dimension benign-appearing cyst is noted. The liver is normal in size. The liver contour is normal. Parenchymal echogenicity is normal. No focal hepatic lesion. There is no intrahepatic biliary duct dilatation seen. GALLBLADDER: Normal. The gallbladder is physiologically distended without evidence of stones, sludge, polyps, wall thickening or pericholecystic fluid. COMMON BILE DUCT: Normal in caliber measuring 0.6 cm in diameter. RIGHT KIDNEY: Normal. No hydronephrosis. No renal calculi or focal parenchymal lesions. The kidney measures 10.7 cm in maximum dimension. FREE FLUID: None. US/US abdomen limited IMPRESSION: 1. 1.2 cm maximum dimension simple appearing cyst is noted within the liver. 2. Otherwise unremarkable study.
[2021-04-03 11:35] VITALS: BP 152/100; PULSE 96; RESP 18; TEMP 36.7; O2SAT 96; BMI 29.1
--- NOTE | 2021-04-03 11:53 | ED.NAVMDI ---
HPI - Nausea/Vomiting/Diarrhea General Chief complaint: General Medical Stated complaint: nauseous,shivery Time Seen by Provider: 04/03/21 11:53 Source: patient Mode of arrival: ambulatory Limitations: no limitations History of Present Illness MD elicited complaint: nausea and other (weakness, weight loss) Pertinent past history: other (IBS) Onset (ago): month(s) Associated nausea: Yes Associated abdominal pain: No Location of pain: none Severity: moderate Exacerbating factors: eating Relieving factors: none Context: other (hx of similar episodes in the past) Associated symptoms: fever/chills, loss of appetite, malaise, nausea/vomiting and weakness Related Data Home Medications Medication Instructions Recorded Confirmed alprazolam 0.25 mg tablet 0.25 mg PO TID PRN 08/07/20 01/28/21 desvenlafaxine succinate 25 mg 25 mg PO DAILY 08/07/20 01/28/21 tablet,extended release 24 hr omeprazole 20 mg capsule,delayed 20 mg PO DAILY 08/07/20 01/28/21 release hyoscyamine sulfate 0.125 mg tablet 0.125 mg PO BID-QID PRN 03/27/21 Previous Rx's Medication Instructions Recorded pantoprazole 40 mg tablet,delayed 40 mg PO DAILY #30 tab 06/30/20 release (Protonix) ondansetron HCl 8 mg tablet 8 mg PO Q8H PRN #20 tab 10/19/20 famotidine 20 mg tablet 20 mg PO DAILY #14 tab 11/12/20 ondansetron 4 mg disintegrating 4 mg PO Q6H PRN #20 tab 11/12/20 tablet famotidine 40 mg tablet (Pepcid) 40 mg PO BEDTIME #30 tab 01/28/21 docusate sodium 100 mg capsule 100 mg PO BID PRN #14 cap 02/24/21 (Colace) Allergies Allergy/AdvReac Type Severity Reaction Status Date / Time Sulfa (Sulfonamide Allergy Intermediate RASH Verified 04/03/21 11:35 Antibiotics) amoxicillin [From AUGMENTIN] Allergy Unknown PER H&P Verified 04/03/21 11:35 clavulanic acid Allergy Unknown PER H&P Verified 04/03/21 11:35 [From AUGMENTIN] garlic [GARLIC] Allergy Unknown PER H&P Verified 04/03/21 11:35 metronidazole [From FLAGYL] Allergy Unknown OCULAR Verified 04/03/21 11:35 MIGRAINES penicillamine Allergy Unknown Unknown Verified 04/03/21 11:35 environmental Allergy Unknown Unknown Uncoded 03/11/21 08:37 flagyl Allergy Unknown Unknown Uncoded 03/11/21 08:37 From KEFLEX Allergy Unknown RASH Uncoded 05/21/20 15:15 Metoprolol Tartrate Allergy Unknown Unknown Uncoded 03/11/21 08:37 Sulfacet-R Allergy Unknown Unknown Uncoded 03/11/21 08:37 Review of Systems Review of Systems: Constitutional : pos Weight loss, No Fever, pos Chills, pos Fatigue, pos Malaise ENT/Mouth : No sore throat, No Rhinorrhea Eyes: No Eye Pain, No Swelling, No Redness Cardiovascular : No Chest Pain, No SOB, No Dyspnea on Exertion, No Orthopnea, No Edema, No Palpitations Respiratory : No Cough, No Sputum, No Wheezing Gastrointestinal : pos Nausea, No Vomiting, No Diarrhea, No Constipation, No abdominal Pain, No Hematochezia, No Melena Genitourinary : No Dysuria, No Urinary Frequency, No Hematuria, Musculoskeletal : No joint pain, No Myalgias, No Joint Swelling Skin : No Skin Lesions, No rash Neuro : pos Weakness, No Numbness, No Dizziness, No Headache Psych : pos Anxiety/Panic, No Depression Heme/Lymph: No Bruising, No Bleeding,No Lymphadenopathy Endocrine : No Polyuria, No Polydipsia All other systems reviewed and are negative Gastrointestinal: Gastrointestinal: Reports nausea PMFSH Past Medical History Attestation statement: The following information was validated with the patient. Medical History Anxiety Diverticulitis GERD (gastroesophageal reflux disease) Heart murmur Irritable bowel Surgical History History of appendectomy Social History Social History Alcohol intake: former Patient Tobacco Use Status: Former Tobacco user Use of substances other than those prescribed or required for medical reasons: No Advance Directives: No Advance Directives Information Provided: No Physical Exam Vital Signs: Vital Signs: Last Vital Signs Temp 98.0 F 04/03/21 11:35 Pulse 93 04/03/21 12:19 Resp 20 04/03/21 12:19 BP 186/97 H 04/03/21 12:19 Pulse Ox 95 04/03/21 12:19 Body Mass Index 29.1 Appearance: Alert. Oriented X3. No acute distress. Eyes: Pupils equal, round and reactive to light. ENT: Pharynx normal. Neck: Normal inspection. Neck supple. CVS: Normal heart rate and rhythm. Pulses normal. Respiratory: No respiratory distress. Breath sounds normal. Abdomen: Soft and nontender. Skin: Skin warm and dry. Normal skin color. Normal skin turgor. Extremities: No lower extremity edema. No calf ttp Neuro: Oriented X 3. No motor deficit. No sensory deficit. Course Course Course Narrative: MDM: 80 yo female here with chronic nausea, vague multiple symptoms with recent normal CT scan and workup, just had negative COVID test 2 days ago at this time given vague symptoms with recent negative workup will obtain labs, US of liver/pancreas, UA, IVF, zofran and PO xanax, dispo per results and findings. EKG: Rate: 87 Rhythm: NSR with 1st degree AVB [place]: left Normal P waves. 1st degree AVB Normal QRS complex. ST T wave : normal no FARAZ qTC: normal prior studies: no acute ischemia The study has been interpreted contemporaneously by me. . no acute findings, stable for DC at this time will refer to her PCP Discharge Plan Discharge Clinical Impression: Nausea Patient Disposition: Home, Self-Care Instructions: Acute Nausea and Vomiting (ED) Additional Instructions: return to ED for any worsening symptoms or concerns Prescriptions: No Action pantoprazole [Protonix] 40 mg tablet,delayed release (DR/EC) 40 mg PO DAILY Qty: 30 RF: 2 docusate sodium [Colace] 100 mg capsule 100 mg PO BID PRN (Reason: Constipation) Qty: 14 RF: 0 ondansetron HCl 8 mg tablet 8 mg PO Q8H PRN (Reason: nausea and vomiting) Qty: 20 RF: 0 ondansetron 4 mg tablet,disintegrating 4 mg PO Q6H PRN (Reason: nausea and vomiting) Qty: 20 RF: 0 famotidine 20 mg tablet 20 mg PO DAILY Qty: 14 RF: 0 famotidine [Pepcid] 40 mg tablet 40 mg PO BEDTIME Qty: 30 RF: 2 hyoscyamine sulfate 0.125 mg tablet 0.125 mg PO BID-QID PRNRF: 0 alprazolam 0.25 mg tablet 0.25 mg PO TID PRNRF: 0 omeprazole 20 mg capsule,delayed release(DR/EC) 20 mg PO DAILY RF: 0 desvenlafaxine succinate 25 mg tablet extended release 24 hr 25 mg PO DAILY RF: 0 Referrals: Bandar Renteria MD [Primary Care Provider] - 2 days
--- NOTE | 2021-04-03 12:01 | ECG_ITS ---
Test Reason : NAUSEA Blood Pressure : / mmHG Vent. Rate : 087 BPM Atrial Rate : 087 BPM P-R Int : 206 ms QRS Dur : 090 ms QT Int : 376 ms P-R-T Axes : 051 -09 031 degrees QTc Int : 452 ms Normal sinus rhythm Cannot rule out Anterior infarct (cited on or before 03-APR-2021) - could be related to body habitus/lead placement Abnormal ECG When compared with ECG of 30-JUN-2020 20:12, Questionable change in initial forces of Septal leads Referred By: Danay Baer Electronically Signed By:WILBUR MCFARLAND
[2021-04-03 12:19] VITALS: BP 186/97; PULSE 93; RESP 20; O2SAT 95
[2021-04-03 12:39] LABS: Imm Gran Abs Auto 0.01 X10*3/uL (0.00-0.03); Imm Gran Pct Auto 0.3 % (0.0-0.4); Mean Corpuscular Volume 91.6 fL (80-98); PLT CLUMP 1; SCAN SMEAR FLAG 1
[2021-04-03 12:40] LABS: Basophils Percent Auto 0.3 % (0-2); Eosinophils Absolute Auto 0.1 X10*3/uL (0.0-0.4); Eosinophils Percent Auto 1.8 % (0-4); Hematocrit 33.8 % (37-47); Hemoglobin 11.1 g/dl (12.0-16.0); Lymphocytes Absolute Auto 0.9 X10*3/uL (1.2-4.9); Lymphocytes Percent Auto 22.2 % (20-40); Mean Corpuscular HGB Conc 32.8 g/dl (31.0-35.0); Mean Corpuscular Hemoglobin 30.1 pg (27.0-33.0); Mean Platelet Volume 11.4 fL (9.4-12.3); Monocytes Absolute Auto 0.3 X10*3/uL (0.1-1.2); Monocytes Percent Auto 6.5 % (2-11); Neutrophils Absolute Auto 2.7 X10*3/uL (2.0-8.3); Neutrophils Percent Auto 68.9 % (45-73); Platelet Count 127 X10*3/uL (160-400); Red Blood Count 3.69 X10*6/uL (4.20-5.50); Red Cell Distribution Width 13.3 % (11.0-16.0)
[2021-04-03] MEDS: ALPRAZolam 0.5 MG TABLET PO (12:40)
[2021-04-03] MEDS: 0.9 % Sodium Chloride 500 ML IV (12:40)
--- NOTE | 2021-04-03 12:49 | PC.NURSE ---
pt alert and oriented, skin pwd, respirations even and unlabored. pt reports for about a couple of weeks not feeling right, having a shaky feeling inside pt does suffer from anxiety takes xanax at home, nausea but no abd pain, diarrhea on and off and cough.
[2021-04-03 13:07] LABS: Alanine Aminotransferase 12 U/L (0-31); Albumin Level 4.3 g/dL (3.5-5.0); Alkaline Phosphatase 105 U/L (39-117); Anion Gap 11 (12-20); Aspartate Amino Transferase 18 U/L (5-31); Bilirubin Direct 0.3 mg/dL (0.0-0.5); Bilirubin Total 0.8 mg/dL (0.0-1.0); Blood Urea Nitrogen 14 mg/dL (9-16); Calcium 9.4 mg/dL (8.4-10.2); Carbon Dioxide 30 mmol/L (22-29); Chloride 104 mmol/L (96-108); Creatinine Clr Calc Pharmacy 61.8; Estimated Glomerular Filt Rate > 60; Glucose Random 104 mg/dL (60-115); Lipase 11 U/L (8-78); Magnesium 1.9 mg/dL (1.6-2.6); Potassium 3.9 mmol/L (3.3-5.1); Sodium 141 mmol/L (135-145); Total Protein 7.1 g/dL (6.5-8.0)
[2021-04-03 13:08] LABS: Troponin-I High Sensitivity 4.6 ng/L (<3.5-17.0)
[2021-04-03 13:26] LABS: TSH reflex Free T4 0.75 uIU/mL (0.32-4.0)
[2021-04-03 14:33] LABS: Glucose Urine UA NEG (NEG); Leukocyte Esterase Urine NEG (NEG); Nitrite Urine NEG (NEG); Specific Gravity - Urine 1.015 (1.005-1.025); Urine Blood NEG (NEG); Urine Ketones NEG (NEG); Urine Protein NEG (NEG-TRACE)
[2021-04-03 14:37] LABS: Appearance Urine CLEAR; Color Urine YELLOW
--- NOTE | 2021-04-03 14:40 | PC.NURSE ---
PT REPORTS FEELING A LITTLE BETTER, BUT IS HAVING SOME PAIN IN THE RLQ 10 BUT NAUSEA STILL PRESENT
[2021-04-03 14:41] VITALS: BP 149/88; PULSE 90; RESP 18; O2SAT 97
== END 2021-04-03 15:19 | disposition home or self-care (01) ==
PROVIDERS: Emergency Provider Emergency Medicine; PCP Internal Medicine
DX: R11.0 Nausea (principal)
CPT/HCPCS: 36415; 76705; 80048; 80076; 81003; 83690; 83735; 84443; 84484; 85025; 93005; 96361; 96374; 99284; J2405

== ENCOUNTER → 2021-04-08 14:13 | Outpatient (BNVA) | payer MEDICARE, OTHER, SELFPAY | PROVIDERS: PCP Internal Medicine; Referring Provider Internal Medicine; Visit Provider Internal Medicine | DX: I35.0 Nonrheumatic aortic (valve) stenosis (principal); R03.0 Elevated blood-pressure reading, without diagnosis of hypertension | CPT/HCPCS: 93005; 99202 ==

== ENCOUNTER 2021-04-12 13:53 | Emergency (ER) | payer MEDICARE, OTHER, SELFPAY ==
--- NOTE | ~2021-04-12 | CT_ITS ---
EXAMINATION: CT ABDOMEN AND PELVIS WITH CONTRAST CLINICAL INFORMATION: Left lower quadrant pain . History of diverticulitis. COMPARISON: 03/11/2021 TECHNIQUE: Multidetector volumetric images were obtained from the superior aspect of the liver through the pubic symphysis following administration 85 mL of Omnipaque 350 intravenous contrast. Sagittal and coronal reformatted images were obtained on the technologist's workstation. Oral contrast: No This CT examination was performed using dose optimization techniques as appropriate, variously including the following: *Automated exposure control *Adjustment of mA and/or kV according to patient size (this includes techniques or standardized protocols for targeted exams where dose is matched to indication/reason for exam; i.e. extremities or head) *Use of iterative reconstruction technique DLP: 690 mGy-cm FINDINGS: LUNG BASES: Minimal pleural-parenchymal scarring at the medial aspect of the left lung base. Calcifications are present at the mitral and aortic valves. LIVER, GALLBLADDER, AND BILIARY TREE: The liver is normal in size, shape, and attenuation. Again seen is a cystic hypoattenuating 1.2 cm lesion in the right hepatic lobe near the dome, unchanged. No biliary ductal dilatation is present. The gallbladder is unremarkable with no evidence of radiopaque gallstones, gallbladder wall thickening, or obvious pericholecystic inflammatory changes. PANCREAS: Unremarkable. SPLEEN: Unremarkable. ADRENAL GLANDS: Unremarkable. KIDNEYS AND URETERS: The kidneys are normal in size, shape, and attenuation. There is a 4 mm calculus at a left upper renal pole calyx. A 3 mm calculus is present within the left lower pole calyx. No additional renal calculi. Ureters are normal in course and caliber. No ureteral calculi. BLADDER: Unremarkable. GASTROINTESTINAL TRACT: There is chronic wall thickening in the sigmoid colon and rectum likely due to muscular hypertrophy related to the scoliosis. No significant surrounding fat stranding to indicate acute diverticulitis. Stomach, small bowel, and colon are normal in caliber. Appendix is normal. No intraperitoneal free fluid or free air. ABDOMINAL WALL: No significant hernia is appreciated. LYMPH NODES: Normal. VASCULAR: Again seen is a small infrarenal abdominal aortic aneurysm measuring 3.1 cm in diameter, unchanged from prior. Atherosclerotic calcifications are present in the abdominal aorta and iliac arteries. PELVIC VISCERA: The uterus and adnexa are unremarkable. OSSEOUS STRUCTURES: Multilevel degenerative disc disease in the lumbar spinal more pronounced facet arthropathy. Mild to moderate osteophytes in the SI joints and hips. CT/CT abdomen pelvis w con IMPRESSION: 1. No acute abnormalities are identified in the abdomen and pelvis. Wall thickening in the sigmoid colon and rectum is favored to be due to muscular hypertrophy from diverticulosis. No appreciable acute inflammatory changes of acute diverticulitis. 2. Nonobstructing left renal calculi. 3. Unchanged 3.1 cm infrarenal abdominal aortic aneurysm. Based on published guidelines in J Am Billy Radiol 2013; 10(10):789-794 and J Vasc Surg. 2018; 67:2-77, the recommendation for an abdominal aortic aneurysm with diameter 3.0-3.4 cm is follow-up every 3 years.
--- NOTE | ~2021-04-12 | XR_ITS ---
EXAMINATION: XR ABDOMEN KUB CLINICAL INDICATION: Constipation for 2 weeks. COMPARISON: None TECHNIQUE: AP view of the abdomen. FINDINGS: There is scattered stool seen in the colon without any distention. There is no organomegaly. No radiopaque calculi. There is mild L4-L5 and L5/S1 facet joint arthropathy. No lytic process. XR/XR KUB IMPRESSION: Mild constipation. No radiopaque renal calculi seen on this exam however both kidneys are mass masked by overlying stool in the colon..
[2021-04-12 14:49] VITALS: BP 141/91; PULSE 91; RESP 18; TEMP 36.6; O2SAT 97; BMI 28.5
--- NOTE | 2021-04-12 14:51 | ED_ITS ---
ENT/Mouth : No Hearing loss, No Ear Pain, No Nasal Congestion, No Sinus Pain, No Hoarseness, No sore throat, No Rhinorrhea, No Swallowing Difficulty Eyes: No Eye Pain, No Swelling, No Redness, No Foreign Body, No Discharge, No Vision Changes Cardiovascular : No Chest Pain, No SOB, No Dyspnea on Exertion, No Orthopnea, No Edema, No Palpitations Respiratory : No Cough, No Sputum, No Wheezing, No Smoke Exposure, No Dyspnea Gastrointestinal : Complaining of nausea, No Vomiting, No Diarrhea, No Constipation, complaining of left lower quadrant pain, occasional intermittent suprapubic/right lower quadrant pain No Hematochezia, No Melena Genitourinary : no irregular bleeding, No Dysuria, No Urinary Frequency, No H ematuria, No Urinary Incontinence, No Urgency, No Flank Pain, No Urinary Flow Changes, No Hesitancy Musculoskeletal : No joint pain, No Myalgias, No Joint Swelling Skin : No Skin Lesions, No rash Neuro : No Weakness, No Numbness, No Paresthesias, No Loss of Consciousness, No Dizziness, No Headache Psych : No Anxiety/Panic, No Depression, No SI/HI/AH/VH, No Social Issues, Heme/Lymph: No Bruising, No Bleeding,No Lymphadenopathy Endocrine : No Polyuria, No Polydipsia, No Temperature Intolerance <Chuyita Rodrigez MD - Last Filed: 04/12/21 23:50> Physical Exam Vital Signs: Vital Signs: Last Vital Signs Temp 97.7 F 04/12/21 22:55 Pulse 93 04/12/21 23:52 Resp 14 04/12/21 22:55 BP 164/100 H 04/12/21 23:52 Pulse Ox 95 04/12/21 22:55 Body Mass Index 28.5 <ROMAINE Larsen - Last Filed: 04/14/21 00:00> Vital Signs: Last Vital Signs Temp 97.7 F 04/12/21 22:55 Pulse 93 04/12/21 23:52 Resp 14 04/12/21 22:55 BP 164/100 H 04/12/21 23:52 Pulse Ox 95 04/12/21 22:55 Body Mass Index 28.5 <Chuyita Rodrigez MD - Last Filed: 04/12/21 23:50> Const: Other: Appearance: Alert. Oriented X3. No acute distress. Eyes: Pupils equal, round and reactive to light. ENT: Pharynx normal. Neck: Normal inspection. Neck supple. No lymph nodes noted. No crepitus CVS: Normal heart rate and rhythm. Pulses normal. Normal S1 and S2 Respiratory: No respiratory distress. Breath sounds normal. No Wheezing. No rales Abdomen: Soft , complaining of left lower quadrant pain to deep palpation, no discomfort on deep palpation to the right lower quadrant. No rigidity. No distention. good BS x4 Skin: Skin warm and dry. Normal skin color. Normal skin turgor. Extremities: No lower extremity edema. No lower extremity edema. No Lac erations. No Rash Neuro: Oriented X 3. No motor deficit. No sensory deficit. Moving all extermities. No slurred speech. <Chuyita Rodrigez MD - Last Filed: 04/12/21 23:50> Course Course Course Narrative: Patient presents to the ED for left lower quadrant abdominal pain for 3 days and constiaption for 2 weeks. Patient state also nausea. patient state pmh of diverticulitis. labs ordered and KUB ordered. This is a medical screening. <ROMAINE Larsen - Last Filed: 04/14/21 00:00> Patient presents to the ED for left lower quadrant abdominal pain for 3 days and constiaption for 2 weeks. Patient state also nausea. patient state pmh of diverticulitis. labs ordered and KUB ordered. This is a medical screening. I discussed with the patient that in her chart it says she is allergic to amoxicillin and clavulanic acid. Patient states that she is not allergic to it she is gets nauseous and an upset stomach if she does not eat before taking the medication. Patient states she has had it before and it worked well for her, did not have an allergic reaction. <Chuyita Rodrigez MD - Last Filed: 04/12/21 23:50> MDM - Abdominal Pain Lab Data Result diagrams: : 04/12/21 18:32 04/12/21 18:32 <ROMAINE Larsen - Last Filed: 04/14/21 00:00> Labs: Lab Results 04/12/21 04/12/21 04/12/21 Range/Units 18:32 18:32 18:46 WBC 5.0 (4.8-10.8) X10*3/uL RBC 3.85 L (4.20-5.50) X10*6/uL Hgb 11.5 L (12.0-16.0) g/dl Hct 35.7 L (37-47) % MCV 92.7 (80-98) fL MCH 29.9 (27.0-33.0) pg MCHC 32.2 (31.0-35.0) g/dl RDW 13.5 (11.0-16.0) % Plt Count 132 L (160-400) X10*3/uL MPV 11.8 (9.4-12.3) fL Immature Gran % (Auto) 0.2 (0.0-0.4) % Neut % (Auto) 66.7 (45-73) % Lymph % (Auto) 26.3 (20-40) % [place] % (Auto) 4.8 (2-11) % Eos % (Auto) 1.6 (0-4) % Baso % (Auto) 0.4 (0-2) % Lymph # (Auto) 1.3 (1.2-4.9) X10*3/uL [place] # (Auto) 0.2 (0.1-1.2) X10*3/uL Eos # (Auto) 0.1 (0.0-0.4) X10*3/uL Baso # (Auto) 0.0 (0.0-0.2) X10*3/uL Abs Immat Gran (auto) 0.01 (0.00-0.03) X10*3/uL Absolute Neuts (auto) 3.3 (2.0-8.3) X10*3/uL Absolute Nucleated RBC 0.000 (0.0-0.012) X10*3/uL Nucleated RBC % (auto) 0.0 (0.0-0.2) /100WBC Sodium 143 (135-145) mmol/L Potassium 4.3 (3.3-5.1) mmol/L Chloride 105 (96-108) mmol/L Carbon Dioxide 31 H (22-29) mmol/L Anion Gap 11 L (12-20) BUN 13 (9-16) mg/dL Creatinine 0.86 (0.5-1.4) mg/dL Estim Creat Clear Calc 57.6 Estimated GFR > 60 Random Glucose 93 (60-115) mg/dL Calcium 9.8 (8.4-10.2) mg/dL Total Bilirubin 0.8 (0.0-1.0) mg/dL Direct Bilirubin 0.3 (0.0-0.5) mg/dL AST 24 (5-31) U/L ALT 17 (0-31) U/L Alkaline Phosphatase 110 (39-117) U/L Total Protein 7.8 (6.5-8.0) g/dL Albumin 4.7 (3.5-5.0) g/dL Lipase 12 (8-78) U/L Urine Color YELLOW Urine Appearance CLEAR Urine pH 6.0 (5.0-8.0) Ur Specific [place] 1.020 (1.005-1.025) Urine Protein NEG (NEG-TRACE) MG/DL Urine Glucose (UA) NEG (NEG) MG/DL Urine Ketones NEG (NEG) MG/DL Urine Blood NEG (NEG) Urine Nitrite NEG (NEG) Ur Leukocyte Esterase NEG (NEG) <ROMAINE Larsen - Last Filed: 04/14/21 00:00> Lab Results 04/12/21 04/12/21 04/12/21 Range/Units 18:32 18:32 18:46 WBC 5.0 (4.8-10.8) X10*3/uL RBC 3.85 L (4.20-5.50) X10*6/uL Hgb 11.5 L (12.0-16.0) g/dl Hct 35.7 L (37-47) % MCV 92.7 (80-98) fL MCH 29.9 (27.0-33.0) pg MCHC 32.2 (31.0-35.0) g/dl RDW 13.5 (11.0-16.0) % Plt Count 132 L (160-400) X10*3/uL MPV 11.8 (9.4-12.3) fL Immature Gran % (Auto) 0.2 (0.0-0.4) % Neut % (Auto) 66.7 (45-73) % Lymph % (Auto) 26.3 (20-40) % [place] % (Auto) 4.8 (2-11) % Eos % (Auto) 1.6 (0-4) % Baso % (Auto) 0.4 (0-2) % Lymph # (Auto) 1.3 (1.2-4.9) X10*3/uL [place] # (Auto) 0.2 (0.1-1.2) X10*3/uL Eos # (Auto) 0.1 (0.0-0.4) X10*3/uL Baso # (Auto) 0.0 (0.0-0.2) X10*3/uL Abs Immat Gran (auto) 0.01 (0.00-0.03) X10*3/uL Absolute Neuts (auto) 3.3 (2.0-8.3) X10*3/uL Absolute Nucleated RBC 0.000 (0.0-0.012) X10*3/uL Nucleated RBC % (auto) 0.0 (0.0-0.2) /100WBC Sodium 143 (135-145) mmol/L Potassium 4.3 (3.3-5.1) mmol/L Chloride 105 (96-108) mmol/L Carbon Dioxide 31 H (22-29) mmol/L Anion Gap 11 L (12-20) BUN 13 (9-16) mg/dL Creatinine 0.86 (0.5-1.4) mg/dL Estim Creat Clear Calc 57.6 Estimated GFR > 60 Random Glucose 93 (60-115) mg/dL Calcium 9.8 (8.4-10.2) mg/dL Total Bilirubin 0.8 (0.0-1.0) mg/dL Direct Bilirubin 0.3 (0.0-0.5) mg/dL AST 24 (5-31) U/L ALT 17 (0-31) U/L Alkaline Phosphatase 110 (39-117) U/L Total Protein 7.8 (6.5-8.0) g/dL Albumin 4.7 (3.5-5.0) g/dL Lipase 12 (8-78) U/L Urine Color YELLOW Urine Appearance CLEAR Urine pH 6.0 (5.0-8.0) Ur Specific [place] 1.020 (1.005-1.025) Urine Protein NEG (NEG-TRACE) MG/DL Urine Glucose (UA) NEG (NEG) MG/DL Urine Ketones NEG (NEG) MG/DL Urine Blood NEG (NEG) Urine Nitrite NEG (NEG) Ur Leukocyte Esterase NEG (NEG) <Chuyita Rodrigez MD - Last Filed: 04/12/21 23:50> Discharge Plan Discharge Clinical Impression: Abdominal pain Qualifiers: Abdominal location: left lower quadrant Qualified Code(s): R10.32 - Left lower quadrant pain <ROMAINE Larsen - Last Filed: 04/14/21 00:00> Patient Disposition: Home, Self-Care <ROMAINE Larsen - Last Filed: 04/14/21 00:00> Instructions: Abdominal Pain (ED) <ROMAINE Larsen - Last Filed: 04/14/21 00:00> Additional Instructions: Continue taking your stool softener. Please drink plenty of fluids. You may also drink prune juice. If that does not work, you may add MiraLax daily, up to twice a day until you obtain a normal bowel movement. Please follow-up with your primary care physician tomorrow. If you have any worsening or new symptoms, please return to the emergency room or call 911 <ROMAINE Larsen - Last Filed: 04/14/21 00:00> Prescriptions: New amoxicillin-pot clavulanate [Augmentin] 875-125 mg tablet 1 tab PO BID Qty: 13 RF: 0 polyethylene glycol 3350 [Miralax] 17 gram/dose powder 17 g PO DAILY Qty: 119 RF: 0 No Action docusate sodium [Colace] 100 mg capsule 100 mg PO BID PRN (Reason: Constipation) Qty: 14 RF: 0 ondansetron 4 mg tablet,disintegrating 4 mg PO Q6H PRN (Reason: nausea and vomiting) Qty: 20 RF: 0 hyoscyamine sulfate 0.125 mg tablet 0.125 mg PO BID-QID PRNRF: 0 alprazolam 0.25 mg tablet 0.25 mg PO TID PRNRF: 0 omeprazole 20 mg capsule,delayed release(DR/EC) 20 mg PO DAILY RF: 0 desvenlafaxine succinate 25 mg tablet extended release 24 hr 25 mg PO DAILY RF: 0 <ROMAINE Larsen - Last Filed: 04/14/21 00:00> Interventions: ED Discharge Assessment Last Done: 04/13/21 00:25 <ROMAINE Larsen - Last Filed: 04/14/21 00:00> Discharge Date/Time: 04/13/21 00:26 <ROMAINE Larsen - Last Filed: 04/14/21 00:00> [facility] Past Medical History Medical History: Medical History Anxiety Diverticulitis GERD (gastroesophageal reflux disease) Heart murmur Irritable bowel <ROMAINE Larsen - Last Filed: 04/14/21 00:00> Surgical History: Surgical History History of appendectomy <ROMAINE Larsen - Last Filed: 04/14/21 00:00> Family History Family History: Family History Father No problems noted. Mother No problems noted. <ROMAINE Larsen - Last Filed: 04/14/21 00:00> Social History Social History: Social History Alcohol intake: never Patient Tobacco Use Status: Former Tobacco user Use of substances other than those prescribed or required for medical reasons: No Advance Directives: No Advance Directives Information Provided: No <ROMAINE Larsen - Last Filed: 04/14/21 00:00> HPI - Abdominal Pain General Chief Complaint: Abdominal Pain <ROMAINE Larsen - Last Filed: 04/14/21 00:00> Stated Complaint: Diverticulitis <ROMAINE Larsen - Last Filed: 04/14/21 00:00> Time Seen by Provider: 04/12/21 14:49 <ROMAINE Larsen - Last Filed: 04/14/21 00:00> Source: patient <Chuyita Rodrigez MD - Last Filed: 04/12/21 23:50> Mode of arrival: ambulatory <Chuyita Rodrigez MD - Last Filed: 04/12/21 23:50> Limitations: no limitations <Chuyita Rodrigez MD - Last Filed: 04/12/21 23:50> History of Present Illness HPI narrative: Patient comes emergency room complaining of left lower quadrant pain for couple of days. Patient states that she has had history of diverticulitis. Complaining of constipation for several weeks. Patient takes [id number] stool softener with no significant relief. Patient denies vomiting, no diarrhea, patient is able to pass flatus. <Chuyita Rodrigez MD - Last Filed: 04/12/21 23:50> Related Data Home Medications: Home Medications Medication Instructions Recorded Confirmed alprazolam 0.25 mg tablet 0.25 mg PO TID PRN 08/07/20 04/08/21 desvenlafaxine succinate 25 mg 25 mg PO DAILY 08/07/20 04/08/21 tablet,extended release 24 hr omeprazole 20 mg capsule,delayed 20 mg PO DAILY 08/07/20 04/08/21 release hyoscyamine sulfate 0.125 mg tablet 0.125 mg PO BID-QID PRN 03/27/21 04/08/21 Previous Rx's Medication Instructions Recorded ondansetron 4 mg disintegrating 4 mg PO Q6H PRN #20 tab 11/12/20 tablet docusate sodium 100 mg capsule 100 mg PO BID PRN #14 cap 02/24/21 (Colace) amoxicillin 875 mg-potassium 1 tab PO BID #13 tab 04/12/21 clavulanate 125 mg tablet (Augmentin) polyethylene glycol 3350 17 17 g PO DAILY #119 g 04/12/21 gram/dose oral powder (Miralax) <ROMAINE Larsen - Last Filed: 04/14/21 00:00> Allergies/Adverse Reactions: Allergies Allergy/AdvReac Type Severity Reaction Status Date / Time Sulfa (Sulfonamide Allergy Intermediate RASH Verified 04/12/21 14:49 Antibiotics) amoxicillin [From AUGMENTIN] Allergy Unknown PER H&P Verified 04/12/21 14:49 clavulanic acid Allergy Unknown PER H&P Unverified 04/12/21 14:49 [From AUGMENTIN] garlic [GARLIC] Allergy Unknown PER H&P Verified 04/08/21 14:23 metronidazole [From FLAGYL] Allergy Unknown OCULAR Verified 04/12/21 14:49 MIGRAINES penicillamine Allergy Unknown Unknown Verified 04/12/21 14:49 environmental Allergy Unknown Unknown Uncoded 04/08/21 14:23 flagyl Allergy Unknown Unknown Uncoded 04/08/21 14:23 From KEFLEX Allergy Unknown RASH Uncoded 04/08/21 14:23 Metoprolol Tartrate Allergy Unknown Unknown Uncoded 04/08/21 14:23 Sulfacet-R Allergy Unknown Unknown Uncoded 04/08/21 14:23 <ROMAINE Larsen - Last Filed: 04/14/21 00:00> Review of Systems Review of Systems Constitutional : No Weight loss, No Fever, No Chills, No Night Sweats, No Fatigue, No Malaise
[2021-04-12 18:48] LABS: Eosinophils Absolute Auto 0.1 X10*3/uL (0.0-0.4); Eosinophils Percent Auto 1.6 % (0-4); Imm Gran Abs Auto 0.01 X10*3/uL (0.00-0.03); Imm Gran Pct Auto 0.2 % (0.0-0.4); Mean Corpuscular Hemoglobin 29.9 pg (27.0-33.0); PLT CLUMP 1; SCAN SMEAR FLAG 1
[2021-04-12 18:50] LABS: Basophils Percent Auto 0.4 % (0-2); Hematocrit 35.7 % (37-47); Hemoglobin 11.5 g/dl (12.0-16.0); Lymphocytes Absolute Auto 1.3 X10*3/uL (1.2-4.9); Lymphocytes Percent Auto 26.3 % (20-40); Mean Corpuscular HGB Conc 32.2 g/dl (31.0-35.0); Mean Corpuscular Volume 92.7 fL (80-98); Mean Platelet Volume 11.8 fL (9.4-12.3); Monocytes Absolute Auto 0.2 X10*3/uL (0.1-1.2); Monocytes Percent Auto 4.8 % (2-11); Neutrophils Absolute Auto 3.3 X10*3/uL (2.0-8.3); Neutrophils Percent Auto 66.7 % (45-73); Red Blood Count 3.85 X10*6/uL (4.20-5.50); Red Cell Distribution Width 13.5 % (11.0-16.0)
[2021-04-12 18:54] LABS: MANUAL DIFF FLAG NO; Platelet Count 132 X10*3/uL (160-400)
[2021-04-12 18:59] LABS: Glucose Urine UA NEG (NEG); Leukocyte Esterase Urine NEG (NEG); Nitrite Urine NEG (NEG); Urine Blood NEG (NEG); Urine Ketones NEG (NEG); Urine Protein NEG (NEG-TRACE)
[2021-04-12 19:00] LABS: Appearance Urine CLEAR; Color Urine YELLOW
[2021-04-12 19:10] LABS: Alanine Aminotransferase 17 U/L (0-31); Albumin Level 4.7 g/dL (3.5-5.0); Alkaline Phosphatase 110 U/L (39-117); Anion Gap 11 (12-20); Aspartate Amino Transferase 24 U/L (5-31); Bilirubin Direct 0.3 mg/dL (0.0-0.5); Bilirubin Total 0.8 mg/dL (0.0-1.0); Blood Urea Nitrogen 13 mg/dL (9-16); Calcium 9.8 mg/dL (8.4-10.2); Carbon Dioxide 31 mmol/L (22-29); Chloride 105 mmol/L (96-108); Creatinine Clr Calc Pharmacy 57.6; Estimated Glomerular Filt Rate > 60; Glucose Random 93 mg/dL (60-115); Lipase 12 U/L (8-78); Potassium 4.3 mmol/L (3.3-5.1); Sodium 143 mmol/L (135-145); Total Protein 7.8 g/dL (6.5-8.0)
[2021-04-12 20:00] VITALS: BP 164/102; PULSE 93; RESP 16; TEMP 37.1; O2SAT 97
--- NOTE | 2021-04-12 21:00 | ED_ITS ---
HPI - Abdominal Pain General Chief Complaint: Abdominal Pain Stated Complaint: Diverticulitis Time Seen by Provider: 04/12/21 14:49 Related Data Home Medications Medication Instructions Recorded Confirmed alprazolam 0.25 mg tablet 0.25 mg PO TID PRN 08/07/20 04/08/21 desvenlafaxine succinate 25 mg 25 mg PO DAILY 08/07/20 04/08/21 tablet,extended release 24 hr omeprazole 20 mg capsule,delayed 20 mg PO DAILY 08/07/20 04/08/21 release hyoscyamine sulfate 0.125 mg tablet 0.125 mg PO BID-QID PRN 03/27/21 04/08/21 Previous Rx's Medication Instructions Recorded ondansetron 4 mg disintegrating 4 mg PO Q6H PRN #20 tab 11/12/20 tablet docusate sodium 100 mg capsule 100 mg PO BID PRN #14 cap 02/24/21 (Colace) amoxicillin 875 mg-potassium 1 tab PO BID #13 tab 04/12/21 clavulanate 125 mg tablet (Augmentin) polyethylene glycol 3350 17 17 g PO DAILY #119 g 04/12/21 gram/dose oral powder (Miralax) Allergies Allergy/AdvReac Type Severity Reaction Status Date / Time Sulfa (Sulfonamide Allergy Intermediate RASH Verified 04/12/21 14:49 Antibiotics) amoxicillin [From AUGMENTIN] Allergy Unknown PER H&P Verified 04/12/21 14:49 clavulanic acid Allergy Unknown PER H&P Unverified 04/12/21 14:49 [From AUGMENTIN] garlic [GARLIC] Allergy Unknown PER H&P Verified 04/08/21 14:23 metronidazole [From FLAGYL] Allergy Unknown OCULAR Verified 04/12/21 14:49 MIGRAINES penicillamine Allergy Unknown Unknown Verified 04/12/21 14:49 environmental Allergy Unknown Unknown Uncoded 04/08/21 14:23 flagyl Allergy Unknown Unknown Uncoded 04/08/21 14:23 From KEFLEX Allergy Unknown RASH Uncoded 04/08/21 14:23 Metoprolol Tartrate Allergy Unknown Unknown Uncoded 04/08/21 14:23 Sulfacet-R Allergy Unknown Unknown Uncoded 04/08/21 14:23 Physical Exam Vital Signs: Vital Signs: Last Vital Signs Temp 98.7 F 04/12/21 20:00 Pulse 93 04/12/21 20:00 Resp 16 04/12/21 20:00 BP 164/102 H 04/12/21 20:00 Pulse Ox 97 04/12/21 20:00 Body Mass Index 28.5 Course Course Course Narrative: I discussed the CT and labs with the patient, no acute findings. However, given the patient's history of diverticulitis, ongoing abdominal pain, we will go ahead and treat with antibiotics. First dose given in the emergency room. Patient states she has had a mountain in the past and works well for her. MDM - Abdominal Pain Lab Data Result diagrams: 04/12/21 18:32 04/12/21 18:32 Labs: Lab Results 04/12/21 04/12/21 04/12/21 Range/Units 18:32 18:32 18:46 WBC 5.0 (4.8-10.8) X10*3/uL RBC 3.85 L (4.20-5.50) X10*6/uL Hgb 11.5 L (12.0-16.0) g/dl Hct 35.7 L (37-47) % MCV 92.7 (80-98) fL MCH 29.9 (27.0-33.0) pg MCHC 32.2 (31.0-35.0) g/dl RDW 13.5 (11.0-16.0) % Plt Count 132 L (160-400) X10*3/uL MPV 11.8 (9.4-12.3) fL Immature Gran % (Auto) 0.2 (0.0-0.4) % Neut % (Auto) 66.7 (45-73) % Lymph % (Auto) 26.3 (20-40) % [place] % (Auto) 4.8 (2-11) % Eos % (Auto) 1.6 (0-4) % Baso % (Auto) 0.4 (0-2) % Lymph # (Auto) 1.3 (1.2-4.9) X10*3/uL [place] # (Auto) 0.2 (0.1-1.2) X10*3/uL Eos # (Auto) 0.1 (0.0-0.4) X10*3/uL Baso # (Auto) 0.0 (0.0-0.2) X10*3/uL Abs Immat Gran (auto) 0.01 (0.00-0.03) X10*3/uL Absolute Neuts (auto) 3.3 (2.0-8.3) X10*3/uL Absolute Nucleated RBC 0.000 (0.0-0.012) X10*3/uL Nucleated RBC % (auto) 0.0 (0.0-0.2) /100WBC Sodium 143 (135-145) mmol/L Potassium 4.3 (3.3-5.1) mmol/L Chloride 105 (96-108) mmol/L Carbon Dioxide 31 H (22-29) mmol/L Anion Gap 11 L (12-20) BUN 13 (9-16) mg/dL Creatinine 0.86 (0.5-1.4) mg/dL Estim Creat Clear Calc 57.6 Estimated GFR > 60 Random Glucose 93 (60-115) mg/dL Calcium 9.8 (8.4-10.2) mg/dL Total Bilirubin 0.8 (0.0-1.0) mg/dL Direct Bilirubin 0.3 (0.0-0.5) mg/dL AST 24 (5-31) U/L ALT 17 (0-31) U/L Alkaline Phosphatase 110 (39-117) U/L Total Protein 7.8 (6.5-8.0) g/dL Albumin 4.7 (3.5-5.0) g/dL Lipase 12 (8-78) U/L Urine Color YELLOW Urine Appearance CLEAR Urine pH 6.0 (5.0-8.0) Ur Specific [place] 1.020 (1.005-1.025) Urine Protein NEG (NEG-TRACE) MG/DL Urine Glucose (UA) NEG (NEG) MG/DL Urine Ketones NEG (NEG) MG/DL Urine Blood NEG (NEG) Urine Nitrite NEG (NEG) Ur Leukocyte Esterase NEG (NEG) Imaging Data CT scan - abdomen: Radiologist's impression: FINDINGS: LUNG BASES: Minimal pleural-parenchymal scarring at the medial aspect of the left lung base. Calcifications are present at the mitral and aortic valves.? LIVER, GALLBLADDER, AND BILIARY TREE: The liver is normal in size, shape, and attenuation. Again seen is a cystic hypoattenuating 1.2 cm lesion in the right hepatic lobe near the dome, unchanged. No biliary ductal dilatation is present. The gallbladder is unremarkable with no evidence of radiopaque gallstones, gallbladder wall thickening, or obvious pericholecystic inflammatory changes.? PANCREAS: Unremarkable.? SPLEEN: Unremarkable.? ADRENAL GLANDS: Unremarkable.? KIDNEYS AND URETERS: The kidneys are normal in size, shape, and attenuation. There is a 4 mm calculus at a left upper renal pole calyx. A 3 mm calculus is present within the left lower pole calyx. No additional renal calculi. Ureters are normal in course and caliber. No ureteral calculi. BLADDER: Unremarkable.? GASTROINTESTINAL TRACT: There is chronic wall thickening in the sigmoid colon and rectum likely due to muscular hypertrophy related to the scoliosis. No significant surrounding fat stranding to indicate acute diverticulitis. Stomach, small bowel, and colon are normal in caliber. Appendix is normal. No intraperitoneal free fluid or free air.? ABDOMINAL WALL: No significant hernia is appreciated.? LYMPH NODES: Normal. VASCULAR: Again seen is a small infrarenal abdominal aortic aneurysm measuring 3.1 cm in diameter, unchanged from prior. Atherosclerotic calcifications are present in the abdominal aorta and iliac arteries. PELVIC VISCERA: The uterus and adnexa are unremarkable.? OSSEOUS STRUCTURES: Multilevel degenerative disc disease in the lumbar spinal more pronounced facet arthropathy. Mild to moderate osteophytes in the SI joints and hips.? CT/CT abdomen pelvis w con IMPRESSION: 1. No acute abnormalities are identified in the abdomen and pelvis. Wall thickening in the sigmoid colon and rectum is favored to be due to muscular hypertrophy from diverticulosis. No appreciable acute inflammatory changes of acute diverticulitis. 2. Nonobstructing left renal calculi. 3. Unchanged 3.1 cm infrarenal abdominal aortic aneurysm. Based on published guidelines in J Am Billy Radiol 2013; 10(10):789-794 and J Vasc Surg. 2018; 67:2-77, the recommendation for an abdominal aortic aneurysm with diameter 3.0-3.4 cm is follow-up every 3 years. Discharge Plan Discharge Clinical Impression: Abdominal pain Qualifiers: Abdominal location: left lower quadrant Qualified Code(s): R10.32 - Left lower quadrant pain Patient Disposition: Home, Self-Care Instructions: Abdominal Pain (ED) Additional Instructions: Continue taking your stool softener. Please drink plenty of fluids. You may also drink prune juice. If that does not work, you may add MiraLax daily, up to twice a day until you obtain a normal bowel movement. Please follow-up with your primary care physician tomorrow. If you have any worsening or new symptoms, please return to the emergency room or call 911 Prescriptions: New amoxicillin-pot clavulanate [Augmentin] 875-125 mg tablet 1 tab PO BID Qty: 13 RF: 0 polyethylene glycol 3350 [Miralax] 17 gram/dose powder 17 g PO DAILY Qty: 119 RF: 0 No Action docusate sodium [Colace] 100 mg capsule 100 mg PO BID PRN (Reason: Constipation) Qty: 14 RF: 0 ondansetron 4 mg tablet,disintegrating 4 mg PO Q6H PRN (Reason: nausea and vomiting) Qty: 20 RF: 0 hyoscyamine sulfate 0.125 mg tablet 0.125 mg PO BID-QID PRNRF: 0 alprazolam 0.25 mg tablet 0.25 mg PO TID PRNRF: 0 omeprazole 20 mg capsule,delayed release(DR/EC) 20 mg PO DAILY RF: 0 desvenlafaxine succinate 25 mg tablet extended release 24 hr 25 mg PO DAILY RF: 0 PMFSH Past Medical History Medical History Anxiety Diverticulitis GERD (gastroesophageal reflux disease) Heart murmur Irritable bowel Surgical History History of appendectomy Family History Family History Father No problems noted. Mother No problems noted. Social History Social History Alcohol intake: never Patient Tobacco Use Status: Former Tobacco user Use of substances other than those prescribed or required for medical reasons: No Advance Directives: No Advance Directives Information Provided: No
--- NOTE | 2021-04-12 21:02 | PC.NURSE ---
describing upper abd pain. nausea no vomiting. reporting increased anxiety since arrival to ED and states that HTN is d/t stress.
[2021-04-12] MEDS: iohexoL 350 MG/ML 100 ML INFUS..BTL IV (21:41)
[2021-04-12 22:55] VITALS: BP 168/94; PULSE 86; RESP 14; TEMP 36.5; O2SAT 95
[2021-04-12] MEDS: Amoxicillin/Potassium Clav 875 MG TABLET PO (23:51)
--- NOTE | 2021-04-12 23:51 | PC.NURSE ---
pt reports that she is not allergic to amoxicillin, has an upset stomach following.
[2021-04-12 23:52] VITALS: BP 164/100; PULSE 93
== END 2021-04-13 00:26 | disposition home or self-care (01) ==
PROVIDERS: Physician Assistant; Emergency Provider Emergency Medicine; PCP Internal Medicine
DX: R10.32 Left lower quadrant pain (principal); Z87.891 Personal history of nicotine dependence; Z79.899 Other long term (current) drug therapy
CPT/HCPCS: 36415; 74018; 74177; 80053; 80076; 81003; 82248; 83690; 85025; 99284; Q9967

== ENCOUNTER 2021-05-17 10:41 | Outpatient (REF) | payer MEDICARE, OTHER, SELFPAY ==
[2021-05-17 13:59] LABS: MANUAL DIFF FLAG NO
[2021-05-17 14:08] LABS: Appearance Urine CLEAR; Color Urine YELLOW; Glucose Urine UA NEG (NEG); Leukocyte Esterase Urine NEG (NEG); Nitrite Urine NEG (NEG); PH 6.5 (5.0-8.0); Urine Blood NEG (NEG); Urine Ketones NEG (NEG); Urine Protein NEG (NEG-TRACE)
[2021-05-17 14:10] LABS: Basophils Percent Auto 0.5 % (0-2); Eosinophils Absolute Auto 0.1 X10*3/uL (0.0-0.4); Eosinophils Percent Auto 1.8 % (0-4); Hematocrit 34.2 % (37-47); Hemoglobin 10.9 g/dl (12.0-16.0); Imm Gran Abs Auto 0.01 X10*3/uL (0.00-0.03); Imm Gran Pct Auto 0.3 % (0.0-0.4); Mean Corpuscular HGB Conc 31.9 g/dl (31.0-35.0); Mean Corpuscular Hemoglobin 29.9 pg (27.0-33.0); Mean Platelet Volume 12.8 fL (9.4-12.3); Monocytes Absolute Auto 0.2 X10*3/uL (0.1-1.2); Monocytes Percent Auto 6.1 % (2-11); Neutrophils Absolute Auto 2.5 X10*3/uL (2.0-8.3); Neutrophils Percent Auto 66.3 % (45-73); Platelet Count 127 X10*3/uL (160-400); Red Blood Count 3.64 X10*6/uL (4.20-5.50); Red Cell Distribution Width 13.5 % (11.0-16.0); White Blood Count 3.8 X10*3/uL (4.8-10.8)
[2021-05-17 14:29] LABS: Anion Gap 12 (12-20); Blood Urea Nitrogen 13 mg/dL (9-16); Calcium 9.6 mg/dL (8.4-10.2); Carbon Dioxide 29 mmol/L (22-29); Chloride 105 mmol/L (96-108); Estimated Glomerular Filt Rate > 60; Glucose Random 99 mg/dL (60-115); Sodium 142 mmol/L (135-145)
== END 2021-05-17 10:42 | disposition home or self-care (01) ==
LOC: HO.10HDL 10:41
PROVIDERS: Visit Provider Internal Medicine
DX: R68.83 Chills (without fever) (principal)
CPT/HCPCS: 36415; 80048; 81003; 85025; 87086

== ENCOUNTER 2021-05-18 08:58 | Emergency (ER) | payer MEDICARE, OTHER, SELFPAY ==
--- NOTE | 2021-05-18 10:32 | ED.GENADULT ---
HPI - General Adult General Chief complaint: Weakness Stated complaint: multiple complaints Time Seen by Provider: 05/18/21 10:31 Source: patient Mode of arrival: ambulatory Limitations: no limitations History of Present Illness HPI narrative: Patient complaining of increased weakness for the last few days with multiple nonspecific complaints with history of anxiety/depression on Xanax comes here with multiple complaints was seen by PCP yesterday at the labs done which were in a stable patient does have slightly elevated blood pressure with moderate aortic stenosisWith calculated valve area 1.4 cm2 peak pressure of 61 mmhg seen by channel marketing program manager not started on antihypertensive as it was related to the anxiety. On arrival patient's blood pressure was fluctuating 190/108 repeat blood pressure was 176/98 patient able to sleep for last few nights her 09/24 and her son is sick with cancer Related Data Home Medications Medication Instructions Recorded Confirmed alprazolam 0.25 mg tablet 0.25 mg PO TID PRN 08/07/20 04/08/21 desvenlafaxine succinate 25 mg 25 mg PO DAILY 08/07/20 04/08/21 tablet,extended release 24 hr omeprazole 20 mg capsule,delayed 20 mg PO DAILY 08/07/20 04/08/21 release hyoscyamine sulfate 0.125 mg tablet 0.125 mg PO BID-QID PRN 03/27/21 04/08/21 Previous Rx's Medication Instructions Recorded ondansetron 4 mg disintegrating 4 mg PO Q6H PRN #20 tab 11/12/20 tablet docusate sodium 100 mg capsule 100 mg PO BID PRN #14 cap 02/24/21 (Colace) amoxicillin 875 mg-potassium 1 tab PO BID #13 tab 04/12/21 clavulanate 125 mg tablet (Augmentin) polyethylene glycol 3350 17 17 g PO DAILY #119 g 04/12/21 gram/dose oral powder (Miralax) amlodipine 2.5 mg tablet (Norvasc) 2.5 mg PO DAILY #30 tab 05/18/21 hydroxyzine HCl 25 mg tablet 25 mg PO BEDTIME #14 tab 05/18/21 Allergies Allergy/AdvReac Type Severity Reaction Status Date / Time Sulfa (Sulfonamide Allergy Intermediate RASH Verified 05/18/21 11:56 Antibiotics) amoxicillin [From AUGMENTIN] Allergy Unknown PER H&P Verified 05/18/21 11:56 clavulanic acid Allergy Unknown PER H&P Verified 05/18/21 11:56 [From AUGMENTIN] garlic [GARLIC] Allergy Unknown PER H&P Verified 05/18/21 11:56 metronidazole [From FLAGYL] Allergy Unknown OCULAR Verified 05/18/21 11:56 MIGRAINES penicillamine Allergy Unknown Unknown Verified 05/18/21 11:56 environmental Allergy Unknown Unknown Uncoded 05/18/21 11:56 flagyl Allergy Unknown Unknown Uncoded 05/18/21 11:56 From KEFLEX Allergy Unknown RASH Uncoded 05/18/21 11:56 Metoprolol Tartrate Allergy Unknown Unknown Uncoded 05/18/21 11:56 Sulfacet-R Allergy Unknown Unknown Uncoded 05/18/21 11:56 Review of Systems Review of Systems: Constitutional : No Weight loss, No Fever, No Chills ENT/Mouth : No sore throat, No Rhinorrhea Eyes: No Eye Pain, No Swelling Cardiovascular : No Chest Pain, no palpitations Respiratory : No Cough, No Sputum, no shortness of breath Gastrointestinal : no Nausea, No Vomiting, No Diarrhea, No abdominal Pain, no black stools Genitourinary : No Dysuria, No Urinary Frequency Musculoskeletal : No joint pain, No Myalgias, No Joint Swelling Skin : No Skin Lesions, No rash Neuro : No Weakness, No Numbness, No Dizziness, No Headache Psych : +Anxiety/Panic, No Depression Heme/Lymph: No Bruising, No Lymphadenopathy Endocrine : No Polyuria, No Polydipsia All other systems reviewed and are negative PMFSH Past Medical History Medical History Anxiety Diverticulitis GERD (gastroesophageal reflux disease) Heart murmur Irritable bowel Surgical History History of appendectomy Family History Family History Father No problems noted. Mother No problems noted. Social History Social History Alcohol intake: never Patient Tobacco Use Status: Former Tobacco user Physical Exam Vital Signs: Vital Signs: Last Vital Signs Pulse 84 05/18/21 11:57 Resp 16 05/18/21 10:33 BP 174/101 H 05/18/21 11:57 Pulse Ox 98 05/18/21 10:33 Body Mass Index 28.6 Appearance: Alert. Oriented X3. No acute distress very anxious Eyes: PERRLA, no pallor icterus ENT: Pharynx normal. Oral Mucosa moist Neck: Normal inspection. Neck supple. CVS: Normal heart rate and rhythm. Pulses normal. Respiratory: No respiratory distress. Equal air entry bilateral, no wheezing/rales/rhonchi Abdomen: Soft and nontender. Bowel sounds are present, no mass palpable, no CVA tenderness Skin: Skin warm and dry. Normal skin color. Normal skin turgor. Extremities: No lower extremity edema. No calf tenderness Neuro: Oriented X 3. No motor deficit. No sensory deficit.No cerebellar signs , cranial nerves II-XII intact Medical Decision Making MDM Narrative Medical decision making narrative: Patient with mostly anxiety comes here with multiple complaints blood pressure noticed to be higher with similar history when she saw the channel marketing program manager. At the time of discharge patient's blood pressure was 174/101 was given Norvasc 2.5 mg and Atarax for relaxation the evening Lab Data Lab results reviewed: Yes I reviewed the patient's lab results. Lab results narrative: Labs done as outpatient yesterday which were stable Discharge Plan Discharge Clinical Impression: Anxiety Insomnia Qualifiers: Insomnia type: psychophysiologic Qualified Code(s): F51.04 - Psychophysiologic insomnia Hypertension Qualifiers: Hypertension type: primary hypertension Qualified Code(s): I10 - Essential (primary) hypertension Patient Disposition: Home, Self-Care Instructions: Hypertension (ED), Insomnia (ED), Anxiety (ED) Additional Instructions: Take medication to relax in the evening. Start taking blood pressure medication. Follow-up with your PCP/channel marketing program manager Prescriptions: New hydroxyzine HCl 25 mg tablet 25 mg PO BEDTIME Qty: 14 RF: 0 amlodipine [Norvasc] 2.5 mg tablet 2.5 mg PO DAILY Qty: 30 RF: 0 No Action docusate sodium [Colace] 100 mg capsule 100 mg PO BID PRN (Reason: Constipation) Qty: 14 RF: 0 amoxicillin-pot clavulanate [Augmentin] 875-125 mg tablet 1 tab PO BID Qty: 13 RF: 0 polyethylene glycol 3350 [Miralax] 17 gram/dose powder 17 g PO DAILY Qty: 119 RF: 0 ondansetron 4 mg tablet,disintegrating 4 mg PO Q6H PRN (Reason: nausea and vomiting) Qty: 20 RF: 0 hyoscyamine sulfate 0.125 mg tablet 0.125 mg PO BID-QID PRNRF: 0 alprazolam 0.25 mg tablet 0.25 mg PO TID PRNRF: 0 omeprazole 20 mg capsule,delayed release(DR/EC) 20 mg PO DAILY RF: 0 desvenlafaxine succinate 25 mg tablet extended release 24 hr 25 mg PO DAILY RF: 0 Interventions: ED Discharge Assessment Last Done: 05/18/21 13:04 Discharge Date/Time: 05/18/21 13:06
[2021-05-18 10:33] VITALS: BP 174/103; PULSE 92; RESP 16; O2SAT 98; BMI 28.6
[2021-05-18 10:38] VITALS: BP 198/107
[2021-05-18 11:57] VITALS: BP 174/101; PULSE 84
[2021-05-18] MEDS: amLODIPine Besylate 2.5 MG TABLET PO (11:57)
--- NOTE | 2021-05-18 12:37 | ECG_ITS ---
Test Reason : WEAKESS Blood Pressure : / mmHG Vent. Rate : 094 BPM Atrial Rate : 094 BPM P-R Int : 226 ms QRS Dur : 096 ms QT Int : 378 ms P-R-T Axes : 068 -05 042 degrees QTc Int : 472 ms Sinus rhythm with 1st degree A-V block Otherwise normal ECG When compared with ECG of 03-APR-2021 13:33, No significant change was found Referred By: Declan Combs Electronically Signed By:PEPE PAIGE
== END 2021-05-18 13:06 | disposition home or self-care (01) ==
PROVIDERS: Emergency Provider Internal Medicine; PCP Internal Medicine
DX: F51.04 Psychophysiologic insomnia (principal); I10 Essential (primary) hypertension; F41.1 Generalized anxiety disorder; F43.0 Acute stress reaction; Z79.899 Other long term (current) drug therapy; Z87.891 Personal history of nicotine dependence
CPT/HCPCS: 93005; 99283; 99284

== ENCOUNTER → 2021-05-19 09:17 | Outpatient (BNVA) | payer MEDICARE, OTHER, SELFPAY | PROVIDERS: PCP Internal Medicine; Referring Provider Internal Medicine; Visit Provider Internal Medicine | DX: I10 Essential (primary) hypertension (principal); I35.0 Nonrheumatic aortic (valve) stenosis; F41.9 Anxiety disorder, unspecified | CPT/HCPCS: 99212 ==

== ENCOUNTER → 2021-06-11 08:23 | Outpatient (BNVA) | payer MEDICARE, OTHER, SELFPAY | PROVIDERS: PCP Internal Medicine; Visit Provider Surgery | DX: K57.92 Diverticulitis of intestine, part unspecified, without perforation or abscess without bleeding (principal); R11.0 Nausea | CPT/HCPCS: 99202 ==

== ENCOUNTER 2021-06-17 08:58 | Outpatient (REF) | payer MEDICARE, OTHER, SELFPAY ==
[2021-06-17 11:33] LABS: Vitamin B12 341 pg/mL (200-900)
== END 2021-06-17 08:59 | disposition home or self-care (01) ==
LOC: HO.10HDL 08:58
PROVIDERS: Visit Provider Internal Medicine
DX: E53.8 Deficiency of other specified B group vitamins (principal)
CPT/HCPCS: 36415; 82607

== ENCOUNTER 2021-06-18 16:54 | Emergency (ER) | payer MEDICARE, OTHER, SELFPAY ==
[2021-06-18 19:07] VITALS: BP 169/99; PULSE 85; RESP 18; TEMP 36.6; O2SAT 95; BMI 28.1
[2021-06-18 19:43] LABS: Eosinophils Absolute Auto 0.1 X10*3/uL (0.0-0.4); Eosinophils Percent Auto 1.5 % (0-4); Hemoglobin 11.8 g/dl (12.0-16.0); Imm Gran Abs Auto 0.01 X10*3/uL (0.00-0.03); Imm Gran Pct Auto 0.2 % (0.0-0.4); PLT CLUMP 1; SCAN SMEAR FLAG 1
[2021-06-18 19:44] LABS: Basophils Percent Auto 0.6 % (0-2); Hematocrit 35.8 % (37-47); Lymphocytes Absolute Auto 1.6 X10*3/uL (1.2-4.9); Lymphocytes Percent Auto 30.3 % (20-40); Mean Corpuscular Hemoglobin 30.3 pg (27.0-33.0); Mean Corpuscular Volume 91.8 fL (80-98); Mean Platelet Volume 11.3 fL (9.4-12.3); Monocytes Absolute Auto 0.4 X10*3/uL (0.1-1.2); Monocytes Percent Auto 6.7 % (2-11); Neutrophils Absolute Auto 3.3 X10*3/uL (2.0-8.3); Neutrophils Percent Auto 60.7 % (45-73); Platelet Count 140 X10*3/uL (160-400); Red Cell Distribution Width 13.1 % (11.0-16.0); White Blood Count 5.4 X10*3/uL (4.8-10.8)
[2021-06-18 19:48] LABS: MANUAL DIFF FLAG NO
[2021-06-18 20:03] LABS: Alanine Aminotransferase 13 U/L (0-31); Albumin Level 4.7 g/dL (3.5-5.0); Alkaline Phosphatase 99 U/L (39-117); Anion Gap 13 (12-20); Aspartate Amino Transferase 18 U/L (5-31); Bilirubin Total 0.8 mg/dL (0.0-1.0); Blood Urea Nitrogen 10 mg/dL (9-16); Calcium 9.9 mg/dL (8.4-10.2); Carbon Dioxide 30 mmol/L (22-29); Chloride 102 mmol/L (96-108); Creatinine Clr Calc Pharmacy 57.3; Estimated Glomerular Filt Rate > 60; Glucose Random 91 mg/dL (60-115); Potassium 3.7 mmol/L (3.3-5.1); Sodium 141 mmol/L (135-145); Total Protein 7.7 g/dL (6.5-8.0)
--- NOTE | 2021-06-18 22:53 | ED.ABDPAIN ---
HPI - Abdominal Pain General Chief Complaint: Abdominal Pain Stated Complaint: Abdominal pain Time Seen by Provider: 06/18/21 22:47 Source: patient and old records reviewed Mode of arrival: ambulatory Limitations: no limitations History of Present Illness MD elicited complaint: abdominal pain Pertinent past history: constipation and diverticulitis Onset (ago): hour(s) (started at 2am but has resolved lasted a couple of hours) Pain Consistency: now resolved Location: RLQ and LLQ Severity: moderate Quality: stabbing Radiation: none Migration to: no migration Exacerbating factors: nothing Relieving factors: nothing Associated symptoms: denies other symptoms Related Data Home Medications Medication Instructions Recorded Confirmed alprazolam 0.25 mg tablet 0.25 mg PO TID PRN 08/07/20 05/19/21 omeprazole 20 mg capsule,delayed 20 mg PO DAILY 08/07/20 05/19/21 release fluticasone propionate 50 1 spray INTRANASAL BID 06/11/21 mcg/actuation nasal spray,suspension hyoscyamine sulfate 0.125 mg tablet 0.125 mg PO BID-QID PRN 06/14/21 Previous Rx's Medication Instructions Recorded docusate sodium 100 mg capsule 100 mg PO BID PRN #14 cap 02/24/21 (Colace) polyethylene glycol 3350 17 17 g PO DAILY #119 g 04/12/21 gram/dose oral powder (Miralax) amlodipine 2.5 mg tablet (Norvasc) 2.5 mg PO DAILY #30 tab 05/18/21 hydroxyzine HCl 25 mg tablet 25 mg PO BEDTIME #14 tab 05/18/21 ondansetron HCl 4 mg tablet 4 mg PO Q8H PRN #30 tab 06/11/21 (Zofran) nitrofurantoin 100 mg PO BID 5 Days #10 cap 06/18/21 monohydrate/macrocrystals 100 mg capsule (Macrobid) Allergies Allergy/AdvReac Type Severity Reaction Status Date / Time Sulfa (Sulfonamide Allergy Intermediate RASH Verified 06/18/21 19:06 Antibiotics) amoxicillin [From AUGMENTIN] Allergy Unknown PER H&P Verified 06/18/21 19:06 clavulanic acid Allergy Unknown PER H&P Verified 06/18/21 19:06 [From AUGMENTIN] garlic [GARLIC] Allergy Unknown PER H&P Verified 06/18/21 19:06 metronidazole [From FLAGYL] Allergy Unknown OCULAR Verified 06/18/21 19:06 MIGRAINES penicillamine Allergy Unknown Unknown Verified 06/18/21 19:06 environmental Allergy Unknown Unknown Uncoded 06/11/21 08:34 flagyl Allergy Unknown Unknown Uncoded 06/11/21 08:34 From KEFLEX Allergy Unknown RASH Uncoded 06/11/21 08:34 Metoprolol Tartrate Allergy Unknown Unknown Uncoded 06/11/21 08:34 Sulfacet-R Allergy Unknown Unknown Uncoded 06/11/21 08:34 Review of Systems Review of Systems Constitutional : No Weight loss, No Fever, No Chills ENT/Mouth : No sore throat, No Rhinorrhea Eyes: No Swelling, No Redness Cardiovascular : No Chest Pain, No SOB, NoEdema Respiratory : No Cough, No Sputum, No Wheezing Gastrointestinal : no Nausea, no Vomiting, no Diarrhea, positive abdominal Pain, No Hematochezia, No Melenam pos constipation Genitourinary : No Dysuria, No Urinary Frequency, No Hematuria, No Urgency Musculoskeletal : No joint pain, No Myalgias, No Joint Swelling Skin : No Skin Lesions, No rash Neuro : No Weakness, No Numbness, No Dizziness, No Headache Psych : No Anxiety/Panic, No Depression Heme/Lymph: No Bruising, No Lymphadenopathy Endocrine : No Polyuria, No Polydipsia All other systems reviewed and are negative. Physical Exam Vital Signs: Vital Signs: Last Vital Signs Temp 97.9 F 06/18/21 19:07 Pulse 85 06/18/21 19:07 Resp 18 06/18/21 19:07 BP 169/99 H 06/18/21 19:07 Pulse Ox 95 06/18/21 19:07 Body Mass Index 28.1 Appearance: Alert. Oriented X3. No acute distress. Eyes: Pupils equal, round and reactive to light. ENT: Pharynx normal. Neck: Normal inspection. Neck supple. CVS: Normal heart rate and rhythm. Pulses normal. Respiratory: No respiratory distress. Breath sounds normal. Abdomen: Soft and non-tender. Skin: Skin warm and dry. Normal skin color. Normal skin turgor. Extremities: No lower extremity edema. No calf ttp Neuro: Oriented X 3. No motor deficit. No sensory deficit. Course Course Course Narrative: + UA will treat with macrobid x 5 days MDM - Abdominal Pain MDM Narrative Medical decision making narrative: 80 yo female resolved abdominal pain hx of same in the past now it is resolved seems unlikey to be infectious. She felt some rolling in her abdomen no n/v/d no fevers doubt diverticulitis or obstruction. Suspect pain related to her chronic constipation Lab Data Result diagrams: 06/18/21 19:36 06/18/21 19:36 Labs: Lab Results 06/18/21 06/18/21 06/18/21 Range/Units 19:36 19:36 23:03 WBC 5.4 (4.8-10.8) X10*3/uL RBC 3.90 L (4.20-5.50) X10*6/uL Hgb 11.8 L (12.0-16.0) g/dl Hct 35.8 L (37-47) % MCV 91.8 (80-98) fL MCH 30.3 (27.0-33.0) pg MCHC 33.0 (31.0-35.0) g/dl RDW 13.1 (11.0-16.0) % Plt Count 140 L (160-400) X10*3/uL MPV 11.3 (9.4-12.3) fL Immature Gran % (Auto) 0.2 (0.0-0.4) % Neut % (Auto) 60.7 (45-73) % Lymph % (Auto) 30.3 (20-40) % [place] % (Auto) 6.7 (2-11) % Eos % (Auto) 1.5 (0-4) % Baso % (Auto) 0.6 (0-2) % Lymph # (Auto) 1.6 (1.2-4.9) X10*3/uL [place] # (Auto) 0.4 (0.1-1.2) X10*3/uL Eos # (Auto) 0.1 (0.0-0.4) X10*3/uL Baso # (Auto) 0.0 (0.0-0.2) X10*3/uL Abs Immat Gran (auto) 0.01 (0.00-0.03) X10*3/uL Absolute Neuts (auto) 3.3 (2.0-8.3) X10*3/uL Absolute Nucleated RBC 0.000 (0.0-0.012) X10*3/uL Nucleated RBC % (auto) 0.0 (0.0-0.2) /100WBC Sodium 141 (135-145) mmol/L Potassium 3.7 (3.3-5.1) mmol/L Chloride 102 (96-108) mmol/L Carbon Dioxide 30 H (22-29) mmol/L Anion Gap 13 (12-20) BUN 10 (9-16) mg/dL Creatinine 0.86 (0.5-1.4) mg/dL Estim Creat Clear Calc 57.3 Estimated GFR > 60 Random Glucose 91 (60-115) mg/dL Calcium 9.9 (8.4-10.2) mg/dL Total Bilirubin 0.8 (0.0-1.0) mg/dL AST 18 (5-31) U/L ALT 13 (0-31) U/L Alkaline Phosphatase 99 (39-117) U/L Total Protein 7.7 (6.5-8.0) g/dL Albumin 4.7 (3.5-5.0) g/dL Urine Color YELLOW Urine Appearance CLEAR Urine pH 6.0 (5.0-8.0) Ur Specific [place] 1.025 (1.005-1.025) Urine Protein NEG (NEG-TRACE) MG/DL Urine Glucose (UA) NEG (NEG) MG/DL Urine Ketones NEG (NEG) MG/DL Urine Blood NEG (NEG) Urine Nitrite NEG (NEG) Ur Leukocyte Esterase 1+ H (NEG) Urine RBC 0-2 (0) /HPF Urine WBC 5-9 H (0-4) /HPF Ur Squamous Epith Cells 3+ /LPF Urine Bacteria TRACE /LPF Urine Mucus TRACE /LPF Discharge Plan Discharge Clinical Impression: Cystitis Patient Disposition: Home, Self-Care Instructions: Urinary Tract Infection in Women (ED), Abdominal Pain (ED) Additional Instructions: return to ED for any worsening symptoms or concerns Prescriptions: New nitrofurantoin monohyd/m-cryst [Macrobid] 100 mg capsule 100 mg PO BID 5 Days Qty: 10 RF: 0 No Action docusate sodium [Colace] 100 mg capsule 100 mg PO BID PRN (Reason: Constipation) Qty: 14 RF: 0 hydroxyzine HCl 25 mg tablet 25 mg PO BEDTIME Qty: 14 RF: 0 amlodipine [Norvasc] 2.5 mg tablet 2.5 mg PO DAILY Qty: 30 RF: 0 polyethylene glycol 3350 [Miralax] 17 gram/dose powder 17 g PO DAILY Qty: 119 RF: 0 hyoscyamine sulfate 0.125 mg tablet 0.125 mg PO BID-QID PRNRF: 0 alprazolam 0.25 mg tablet 0.25 mg PO TID PRNRF: 0 omeprazole 20 mg capsule,delayed release(DR/EC) 20 mg PO DAILY RF: 0 fluticasone propionate 50 mcg/actuation spray,suspension 1 spray intranasal BID RF: 0 ondansetron HCl [Zofran] 4 mg tablet 4 mg PO Q8H PRN (Reason: nausea and vomiting) Qty: 30 RF: 0 Referrals: Bandar Renteria MD [Primary Care Provider] - 3 days (if not better) [facility] Past Medical History Attestation statement: The following information was validated with the patient. Medical History Anxiety Diverticulitis GERD (gastroesophageal reflux disease) Heart murmur Irritable bowel Surgical History History of appendectomy History of tonsillectomy Family History Family History Father No problems noted. Mother No problems noted. Social History Social History Alcohol intake: never Patient Tobacco Use Status: Former Tobacco user Advance Directives: No Advance Directives Information Provided: Yes
[2021-06-18 23:31] LABS: Appearance Urine CLEAR; Color Urine YELLOW; Glucose Urine UA NEG (NEG); Leukocyte Esterase Urine 1+ (NEG); Nitrite Urine NEG (NEG); Specific Gravity - Urine 1.025 (1.005-1.025); UACC Culture Trigger YES; Urine Blood NEG (NEG); Urine Ketones NEG (NEG); Urine Protein NEG (NEG-TRACE)
[2021-06-18 23:39] LABS: Bacteria Urine TRACE /LPF; Mucus Urine TRACE /LPF; RBC Urine 0-2 /HPF (0); Squamous Epithelial Cell Urine 3+ /LPF
[2021-06-19] MEDS: Nitrofurantoin Monohyd/M-Cryst 100 MG CAPSULE PO (00:06)
[2021-06-19 00:10] VITALS: BP 124/63; PULSE 84; RESP 18; TEMP 37; O2SAT 97
== END 2021-06-19 00:11 | disposition home or self-care (01) ==
PROVIDERS: Emergency Provider Emergency Medicine; PCP Internal Medicine
DX: N30.90 Cystitis, unspecified without hematuria (principal); R10.31 Right lower quadrant pain; R10.32 Left lower quadrant pain; Z79.899 Other long term (current) drug therapy
CPT/HCPCS: 36415; 80053; 81001; 85025; 87086; 99284

== ENCOUNTER 2021-06-21 10:16 | Emergency (ER) | payer MEDICARE, OTHER, SELFPAY ==
--- NOTE | ~2021-06-21 | CT_ITS ---
EXAMINATION: CT ABDOMEN AND PELVIS WITH CONTRAST CLINICAL INFORMATION: Abdominal pain, nausea. COMPARISON: None TECHNIQUE: Multidetector volumetric images were obtained from the superior aspect of the liver through the pubic symphysis following administration 85 mL of Omnipaque 350 intravenous contrast. Sagittal and coronal reformatted images were obtained on the technologist's workstation. Oral contrast: No. This CT examination was performed using dose optimization techniques as appropriate, variously including the following: *Automated exposure control *Adjustment of mA and/or kV according to patient size (this includes techniques or standardized protocols for targeted exams where dose is matched to indication/reason for exam; i.e. extremities or head) *Use of iterative reconstruction technique DLP: 492 mGy-cm FINDINGS: LUNG BASES: There are hyperinflated lungs. There is bibasilar plate-like atelectasis. The heart size is normal. LIVER, GALLBLADDER, AND BILIARY TREE: The liver is normal in size, shape, and attenuation. There is a 1.4 cm right hepatic lobe lesion axial image 10/3. The gallbladder is unremarkable with no evidence of radiopaque gallstones, gallbladder wall thickening, or obvious pericholecystic inflammatory changes. PANCREAS: Unremarkable. SPLEEN: Unremarkable. ADRENAL GLANDS: Unremarkable. KIDNEYS AND URETERS: The kidneys are normal in size, shape, and attenuation. There is a 3 mm radiopaque calculi midpole and upper pole left kidney. There is no caliectasis or hydronephrosis. BLADDER: Unremarkable. GASTROINTESTINAL TRACT: There is scattered stool, diverticula and gas seen throughout the colon without any significant distention. The small bowel loops are normal caliber. Appendix is not visualized. ABDOMINAL WALL: No significant hernia is appreciated. LYMPH NODES: Normal. VASCULAR: There is fusiform dilation of abdominal aorta measuring 3.0 x 2.8 cm. PELVIC VISCERA: There is no free fluid or free air. The uterus is midline and deviated to the left. OSSEOUS STRUCTURES: No lytic or sclerotic process seen. Mild degenerative disc changes L5-S1 disc level with calcification of disc at L4-L5 and L5-S1 disc levels noted. There is moderate ventral spondylosis lower dorsal and upper lumbar spine. CT/CT abdomen pelvis w con IMPRESSION: No acute intra-abdominal process seen. Mild constipation with scattered colonic diverticulosis with no diverticulitis. Nonobstructive left renal calculi. Probable right hepatic cyst. Bibasilar atelectasis or scarring. 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
[2021-06-21 10:20] VITALS: BP 186/95; PULSE 99; RESP 16; TEMP 37.1; O2SAT 95; BMI 30.5
--- NOTE | 2021-06-21 12:01 | ED_ITS ---
HPI - Abdominal Pain General Chief Complaint: Abdominal Pain Stated Complaint: abd pain Time Seen by Provider: 06/21/21 11:50 Source: patient Mode of arrival: ambulatory Limitations: no limitations History of Present Illness HPI narrative: 80-year-old female presents emergency department with acute on chronic constipation and abdominal pain. She states she has not had a bowel movement for 10 days was seen here few days ago did not have any complaints of abdominal pain found to have UTI was sent home on antibiotics. Patient states that she still has not had a bowel movement she did try a a rectal suppository x1 3 days ago but has not tried any other medications. She denies fevers chills cough she is in no abdominal pain at this time. Related Data Home Medications Medication Instructions Recorded Confirmed alprazolam 0.25 mg tablet 0.25 mg PO TID PRN 08/07/20 06/21/21 omeprazole 20 mg capsule,delayed 20 mg PO DAILY PRN 08/07/20 06/21/21 release fluticasone propionate 50 1 spray INTRANASAL BID 06/11/21 06/21/21 mcg/actuation nasal spray,suspension acetaminophen 325 mg tablet 325 mg PO QID PRN 06/21/21 06/21/21 desvenlafaxine succinate 25 mg 1 tab PO DAILY 06/21/21 06/21/21 tablet,extended release 24 hr fexofenadine 180 mg tablet 180 mg PO DAILY 06/21/21 06/21/21 nitrofurantoin 1 cap PO BID 06/21/21 06/21/21 monohydrate/macrocrystals 100 mg capsule Previous Rx's Medication Instructions Recorded docusate sodium 100 mg capsule 100 mg PO BID PRN #14 cap 02/24/21 (Colace) polyethylene glycol 3350 17 17 g PO DAILY #119 g 04/12/21 gram/dose oral powder (Miralax) ondansetron HCl 4 mg tablet 4 mg PO Q8H PRN #30 tab 06/11/21 (Zofran) ondansetron 4 mg disintegrating 4 mg PO Q6H #14 tab 06/21/21 tablet polyethylene glycol 3350 17 gram 17 g PO BID #100 ea 06/21/21 oral powder packet (ClearLax) Allergies Allergy/AdvReac Type Severity Reaction Status Date / Time Sulfa (Sulfonamide Allergy Intermediate RASH Verified 06/18/21 19:06 Antibiotics) amoxicillin [From AUGMENTIN] Allergy Unknown PER H&P Verified 06/18/21 19:06 clavulanic acid Allergy Unknown PER H&P Verified 06/18/21 19:06 [From AUGMENTIN] garlic [GARLIC] Allergy Unknown PER H&P Verified 06/18/21 19:06 metronidazole [From FLAGYL] Allergy Unknown OCULAR Verified 06/18/21 19:06 MIGRAINES penicillamine Allergy Unknown Unknown Verified 06/18/21 19:06 environmental Allergy Unknown Unknown Uncoded 06/11/21 08:34 flagyl Allergy Unknown Unknown Uncoded 06/11/21 08:34 From KEFLEX Allergy Unknown RASH Uncoded 06/11/21 08:34 Metoprolol Tartrate Allergy Unknown Unknown Uncoded 06/11/21 08:34 Sulfacet-R Allergy Unknown Unknown Uncoded 06/11/21 08:34 Review of Systems Review of Systems Review of systems: General: Patient denies any fever chills recent illness or falls Musculoskeletal: Denies back pain or body aches or other injuries HEENT: denies headache, runny nose, ear pain Respiratory: denies shortness of breath, cough Cardiovascular: no chest pain or palpitations : denies dysuria, frequency Abdomen: Constipation no nausea vomiting denies abdominal pain Extremities: no swelling, no pain Skin: no diaphoresis Yes all other systems are reviewed and are negative Physical Exam Vital Signs: Vital Signs: Last Vital Signs Temp 98.8 F 06/21/21 10:20 Pulse 99 06/21/21 10:20 Resp 16 06/21/21 10:20 BP 186/95 H 06/21/21 10:20 Pulse Ox 95 06/21/21 10:20 Body Mass Index 30.5 General: Well-appearing well-nourished in no signs of distress HEENT: Normocephalic atraumatic Neck: No signs of JVD, no masses no tenderness or lymphadenopathy Cardiovascular: Regular rate and rhythm Respiratory: Clear to auscultation bilaterally Abdomen: Soft nontender no masses rectal exam performed 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 Extremities: Normal pedal pulses no signs of edema Skin: Dry warm no rashes Back: No tenderness full ROM MDM - Abdominal Pain MDM Narrative Medical decision making narrative: Patient's constipation complaining of abdominal pain I will check labs. Patient continued to complain of worsening pain and nausea I did give some Zofran patient is admits she has CT scan. She did have a rectal exam stool in the rectal vault. I did give her given magnesium citrate Patient still pending CT was done 4 hours ago still pending read. I willl sign out pending read disposition. Lab Data Result diagrams: 06/21/21 12:08 06/21/21 12:08 Labs: Lab Results 06/21/21 06/21/21 Range/Units 12:08 12:08 WBC 5.1 (4.8-10.8) X10*3/uL RBC 4.09 L (4.20-5.50) X10*6/uL Hgb 12.2 (12.0-16.0) g/dl Hct 37.3 (37-47) % MCV 91.2 (80-98) fL MCH 29.8 (27.0-33.0) pg MCHC 32.7 (31.0-35.0) g/dl RDW 13.0 (11.0-16.0) % Plt Count 137 L (160-400) X10*3/uL MPV 11.5 (9.4-12.3) fL Immature Gran % (Auto) 0.2 (0.0-0.4) % Neut % (Auto) 66.0 (45-73) % Lymph % (Auto) 25.9 (20-40) % [place] % (Auto) 6.3 (2-11) % Eos % (Auto) 1.0 (0-4) % Baso % (Auto) 0.6 (0-2) % Lymph # (Auto) 1.3 (1.2-4.9) X10*3/uL [place] # (Auto) 0.3 (0.1-1.2) X10*3/uL Eos # (Auto) 0.1 (0.0-0.4) X10*3/uL Baso # (Auto) 0.0 (0.0-0.2) X10*3/uL Abs Immat Gran (auto) 0.01 (0.00-0.03) X10*3/uL Absolute Neuts (auto) 3.4 (2.0-8.3) X10*3/uL Absolute Nucleated RBC 0.000 (0.0-0.012) X10*3/uL Nucleated RBC % (auto) 0.0 (0.0-0.2) /100WBC Smear Tech's Comments Not Reportable Sodium 140 (135-145) mmol/L Potassium 3.8 (3.3-5.1) mmol/L Chloride 103 (96-108) mmol/L Carbon Dioxide 29 (22-29) mmol/L Anion Gap 12 (12-20) BUN 10 (9-16) mg/dL Creatinine 0.80 (0.5-1.4) mg/dL Estim Creat Clear Calc 57.6 Estimated GFR > 60 Random Glucose 113 (60-115) mg/dL Calcium 9.7 (8.4-10.2) mg/dL Total Bilirubin 0.5 (0.0-1.0) mg/dL Direct Bilirubin 0.2 (0.0-0.5) mg/dL AST 16 (5-31) U/L ALT 10 (0-31) U/L Alkaline Phosphatase 97 (39-117) U/L Total Protein 7.7 (6.5-8.0) g/dL Albumin 4.6 (3.5-5.0) g/dL Lipase 14 (8-78) U/L Discharge Plan Discharge Clinical Impression: Constipation, Abdominal pain Patient Disposition: Home, Self-Care Instructions: Constipation (ED), High Fiber Diet (ED) Additional Instructions: Please take MiraLax twice a day until we have soft stools. If you have any other concerns please do not hesitate to come back to emergency department. Prescriptions: New ondansetron 4 mg tablet,disintegrating 4 mg PO Q6H Qty: 14 RF: 0 polyethylene glycol 3350 [ClearLax] 17 gram powder in packet 17 g PO BID Qty: 100 RF: 0 No Action docusate sodium [Colace] 100 mg capsule 100 mg PO BID PRN (Reason: Constipation) Qty: 14 RF: 0 polyethylene glycol 3350 [Miralax] 17 gram/dose powder 17 g PO DAILY Qty: 119 RF: 0 desvenlafaxine succinate 25 mg tablet extended release 24 hr 1 tab PO DAILY RF: 0 acetaminophen 325 mg Tablet 325 mg PO QID PRN (Reason: Pain) RF: 0 fexofenadine [[place]] 180 mg Tablet 180 mg PO DAILY RF: 0 nitrofurantoin monohyd/m-cryst 100 mg capsule 1 cap PO BID RF: 0 alprazolam 0.25 mg tablet 0.25 mg PO TID PRN (Reason: Anxiety) RF: 0 omeprazole 20 mg capsule,delayed release(DR/EC) 20 mg PO DAILY PRN (Reason: gi upset) RF: 0 fluticasone propionate 50 mcg/actuation spray,suspension 1 spray intranasal BID RF: 0 ondansetron HCl [Zofran] 4 mg tablet 4 mg PO Q8H PRN (Reason: nausea and vomiting) Qty: 30 RF: 0 PMFSH Past Medical History Medical History Anxiety Diverticulitis GERD (gastroesophageal reflux disease) Heart murmur Irritable bowel Surgical History History of appendectomy History of tonsillectomy Family History Family History Father No problems noted. Mother No problems noted. Social History Social History Alcohol intake: never Patient Tobacco Use Status: Former Tobacco user Use of substances other than those prescribed or required for medical reasons: No Advance Directives: No
[2021-06-21] MEDS: Magnesium Citrate 300 ML SOLUTION PO (12:13)
[2021-06-21 12:14] LABS: Imm Gran Abs Auto 0.01 X10*3/uL (0.00-0.03); Imm Gran Pct Auto 0.2 % (0.0-0.4); MANUAL DIFF FLAG SCAN; Monocytes Absolute Auto 0.3 X10*3/uL (0.1-1.2); PLT CLUMP 1; SCAN SMEAR FLAG 1
[2021-06-21 12:16] LABS: Basophils Percent Auto 0.6 % (0-2); Eosinophils Absolute Auto 0.1 X10*3/uL (0.0-0.4); Hematocrit 37.3 % (37-47); Hemoglobin 12.2 g/dl (12.0-16.0); Lymphocytes Absolute Auto 1.3 X10*3/uL (1.2-4.9); Lymphocytes Percent Auto 25.9 % (20-40); Mean Corpuscular HGB Conc 32.7 g/dl (31.0-35.0); Mean Corpuscular Hemoglobin 29.8 pg (27.0-33.0); Mean Corpuscular Volume 91.2 fL (80-98); Mean Platelet Volume 11.5 fL (9.4-12.3); Monocytes Percent Auto 6.3 % (2-11); Neutrophils Absolute Auto 3.4 X10*3/uL (2.0-8.3); Platelet Count 137 X10*3/uL (160-400); Red Blood Count 4.09 X10*6/uL (4.20-5.50); White Blood Count 5.1 X10*3/uL (4.8-10.8)
[2021-06-21 12:33] LABS: Alanine Aminotransferase 10 U/L (0-31); Albumin Level 4.6 g/dL (3.5-5.0); Alkaline Phosphatase 97 U/L (39-117); Anion Gap 12 (12-20); Aspartate Amino Transferase 16 U/L (5-31); Bilirubin Direct 0.2 mg/dL (0.0-0.5); Bilirubin Total 0.5 mg/dL (0.0-1.0); Blood Urea Nitrogen 10 mg/dL (9-16); Calcium 9.7 mg/dL (8.4-10.2); Carbon Dioxide 29 mmol/L (22-29); Chloride 103 mmol/L (96-108); Creatinine Clr Calc Pharmacy 57.6; Estimated Glomerular Filt Rate > 60; Glucose Random 113 mg/dL (60-115); Lipase 14 U/L (8-78); Potassium 3.8 mmol/L (3.3-5.1); Sodium 140 mmol/L (135-145); Total Protein 7.7 g/dL (6.5-8.0)
[2021-06-21] MEDS: ondansetron HCL 4 MG/2 ML VIAL IVPUSH (13:00)
[2021-06-21] MEDS: iohexoL 350 MG/ML 100 ML INFUS..BTL 85 ML IV (14:42)
--- NOTE | 2021-06-21 15:04 | PHA.MEDREC ---
Addendum entered by Xin Ruelas RPh 06/21/21 15:10: Patient is now reporting be is taking Macrobid, however there is no claim history for this medications. Last time was in March. Original Note: Pharmacy Consult ? Medication Reconciliation Pharmacy has completed the medication reconciliation. Patient reports she is no longer taking BP medication amlodipine. Xin Ruelas, PharmD
[2021-06-21 16:25] VITALS: BP 162/90; PULSE 88; RESP 18; TEMP 37.1; O2SAT 95
== END 2021-06-21 17:20 | disposition home or self-care (01) ==
PROVIDERS: Emergency Provider Student in an Organized Health Care Education/Training Program; PCP Internal Medicine
DX: K59.00 Constipation, unspecified (principal); R10.9 Unspecified abdominal pain; Z87.891 Personal history of nicotine dependence; Z79.899 Other long term (current) drug therapy
CPT/HCPCS: 36415; 74177; 80048; 80076; 83690; 85025; 96374; 99284; J2405; Q9967

== ENCOUNTER 2021-06-23 10:16 | Emergency (ER) | payer MEDICARE, OTHER, SELFPAY ==
[2021-06-23 10:22] VITALS: BP 146/99; PULSE 97; RESP 16; TEMP 36; O2SAT 95; BMI 2553.7
--- NOTE | 2021-06-23 10:40 | PC.NURSE ---
PT WITH ASTHMA, USING ALBUTEROL INHALER 4-5 TIMES/DAY FOR THE LAST WEEK. FAMILY HAS BEEN SICK - ALL COVID (-). PT WITH SOME TIGHTNESS TO CHEST, LUNGS WITH SCATTERED RHONCHI THROUGHOUT.
[2021-06-23 11:10] VITALS: BP 140/89; PULSE 93; RESP 18; TEMP 36.7; O2SAT 97
--- NOTE | 2021-06-23 11:31 | ED_ITS ---
HPI - Abdominal Pain General Chief Complaint: Abdominal Pain Stated Complaint: GAS PAIN Time Seen by Provider: 06/23/21 11:08 Source: patient Mode of arrival: ambulatory Limitations: no limitations History of Present Illness HPI narrative: 80-year-old female with a past medical history of diverticulitis, irritable bowel syndrome, GERD, heart murmur, and anxiety presenting to the ED with complaints of left lower quadrant abdominal pain and nausea X1 day. She states that she was recently seen here for constipation, she was given magnesium citrate, and she was able to have a bowel movement. She states today she is not constipated, she had 1 bowel movement this AM. She feels like she is having gas pain, and is wondering if there is anything we can do . She also notes she has been feeling nauseous, and zojosh hasnt helped. She also adds that she came in today, because she was feeling anxious. MD elicited complaint: abdominal pain Pertinent past history: constipation and diverticulitis Onset (ago): day(s) (1) Pain Consistency: constant Location: LLQ Severity: mild Quality: other ( gas pain ) Radiation: none Exacerbating factors: nothing Relieving factors: nothing Associated symptoms: nausea Related Data Home Medications Medication Instructions Recorded Confirmed alprazolam 0.25 mg tablet 0.25 mg PO TID PRN 08/07/20 06/21/21 omeprazole 20 mg capsule,delayed 20 mg PO DAILY PRN 08/07/20 06/21/21 release fluticasone propionate 50 1 spray INTRANASAL BID 06/11/21 06/21/21 mcg/actuation nasal spray,suspension acetaminophen 325 mg tablet 325 mg PO QID PRN 06/21/21 06/21/21 desvenlafaxine succinate 25 mg 1 tab PO DAILY 06/21/21 06/21/21 tablet,extended release 24 hr fexofenadine 180 mg tablet 180 mg PO DAILY 06/21/21 06/21/21 nitrofurantoin 1 cap PO BID 06/21/21 06/21/21 monohydrate/macrocrystals 100 mg capsule Previous Rx's Medication Instructions Recorded docusate sodium 100 mg capsule 100 mg PO BID PRN #14 cap 02/24/21 (Colace) polyethylene glycol 3350 17 17 g PO DAILY #119 g 04/12/21 gram/dose oral powder (Miralax) ondansetron HCl 4 mg tablet 4 mg PO Q8H PRN #30 tab 06/11/21 (Zofran) ondansetron 4 mg disintegrating 4 mg PO Q6H #14 tab 06/21/21 tablet polyethylene glycol 3350 17 gram 17 g PO BID #100 ea 06/21/21 oral powder packet (ClearLax) Allergies Allergy/AdvReac Type Severity Reaction Status Date / Time Sulfa (Sulfonamide Allergy Intermediate RASH Verified 06/23/21 10:22 Antibiotics) amoxicillin [From AUGMENTIN] Allergy Unknown PER H&P Verified 06/23/21 10:22 clavulanic acid Allergy Unknown PER H&P Verified 06/23/21 10:22 [From AUGMENTIN] garlic [GARLIC] Allergy Unknown PER H&P Verified 06/23/21 10:22 metronidazole [From FLAGYL] Allergy Unknown OCULAR Verified 06/23/21 10:22 MIGRAINES penicillamine Allergy Unknown Unknown Verified 06/23/21 10:22 environmental Allergy Unknown Unknown Uncoded 06/11/21 08:34 flagyl Allergy Unknown Unknown Uncoded 06/11/21 08:34 From KEFLEX Allergy Unknown RASH Uncoded 06/11/21 08:34 Metoprolol Tartrate Allergy Unknown Unknown Uncoded 06/11/21 08:34 Sulfacet-R Allergy Unknown Unknown Uncoded 06/11/21 08:34 Review of Systems Review of Systems Constitutional : No Fever, No Chills ENT/Mouth : positive oral swelling, No Hoarseness, No Swallowing Difficulty Eyes: No Eye Pain, No Swelling, No Redness Cardiovascular : No Chest Pain, No SOB Respiratory : No Cough, No Sputum, No Wheezing, No Smoke Exposure, No Dyspnea Gastrointestinal : + Nausea, No Vomiting, No Diarrhea, + abdominal Pain Genitourinary : No Dysuria, No Urinary Frequency, No Hematuria Musculoskeletal : No joint pain, No Myalgias, No Joint Swelling Skin : No Skin Lesions, positive rash Neuro : No Weakness, No Numbness, No Headache All other systems reviewed and are negative Physical Exam Vital Signs: Vital Signs: Last Vital Signs Temp 98.1 F 06/23/21 11:10 Pulse 93 06/23/21 11:10 Resp 18 06/23/21 11:10 BP 140/89 H 06/23/21 11:10 Pulse Ox 97 06/23/21 11:10 Body Mass Index 2553.7 Appearance: Alert. Oriented X3. No acute distress. Eyes: Pupils equal, round and reactive to light. ENT: Pharynx normal. Neck: Normal inspection. Neck supple. CVS: Normal heart rate and rhythm. Pulses normal. Respiratory: No respiratory distress. Breath sounds normal. Abdomen: Soft and nontender. Skin: Skin warm and dry. Normal skin color. Normal skin turgor. Extremities: No lower extremity edema. No calf ttp Neuro: Oriented X 3. No motor deficit. No sensory deficit. Course Course Course Narrative: . At this time patient will be medicated with Ativan 0.5 for anxiety. Simethicone will be given for gas pain. MDM - Abdominal Pain MDM Narrative Medical decision making narrative: 80-year-old female with a past medical history of diverticulitis, irritable bowel syndrome, GERD, heart murmur, and anxiety presenting to the ED with complaints of left lower quadrant abdominal pain. She was seen here at [facility] on 2 different occasions this past month, each time she complained of left lower quadrant secondary to constipation. After being given magnesium citrate few days ago, she was able to move her bowels. She states she had a bowel movement this morning. On physical examination there is no tenderness to palpation of the abdomen. There were no other abnormalities noted on physical exam. For this reason it is not necessary to scan the patient's abdomen, as she has already had multiple CT scans for the same reason which are nondiagnostic last CT of abdomen/pelvis on 06/21/2021 Discharge Plan Discharge Clinical Impression: Abdominal gas pain, Anxiety Patient Disposition: Home, Self-Care Instructions: Gas and Bloating (ED), Anxiety (ED) Additional Instructions: Follow-up with her primary care provider Take MiraLax 2 times a day as needed for constipation. Return to the emergency department with new or worsening symptoms Prescriptions: No Action docusate sodium [Colace] 100 mg capsule 100 mg PO BID PRN (Reason: Constipation) Qty: 14 RF: 0 polyethylene glycol 3350 [Miralax] 17 gram/dose powder 17 g PO DAILY Qty: 119 RF: 0 desvenlafaxine succinate 25 mg tablet extended release 24 hr 1 tab PO DAILY RF: 0 acetaminophen 325 mg Tablet 325 mg PO QID PRN (Reason: Pain) RF: 0 fexofenadine [Laurel] 180 mg Tablet 180 mg PO DAILY RF: 0 nitrofurantoin monohyd/m-cryst 100 mg capsule 1 cap PO BID RF: 0 ondansetron 4 mg tablet,disintegrating 4 mg PO Q6H Qty: 14 RF: 0 polyethylene glycol 3350 [ClearLax] 17 gram powder in packet 17 g PO BID Qty: 100 RF: 0 alprazolam 0.25 mg tablet 0.25 mg PO TID PRN (Reason: Anxiety) RF: 0 omeprazole 20 mg capsule,delayed release(DR/EC) 20 mg PO DAILY PRN (Reason: gi upset) RF: 0 fluticasone propionate 50 mcg/actuation spray,suspension 1 spray intranasal BID RF: 0 ondansetron HCl [Zofran] 4 mg tablet 4 mg PO Q8H PRN (Reason: nausea and vomiting) Qty: 30 RF: 0 Referrals: Bandar Renteria MD [Primary Care Provider] - 2 days PMF Past Medical History Attestation statement: The following information was validated with the patient. Source: old records reviewed and nursing notes reviewed Medical History Anxiety Diverticulitis GERD (gastroesophageal reflux disease) Heart murmur Irritable bowel Surgical History History of appendectomy History of tonsillectomy Family History Family History Father No problems noted. Mother No problems noted. Social History Social History Alcohol intake: never Patient Tobacco Use Status: Former Tobacco user Advance Directives: Yes Advance Directives Information Provided: Yes Advance Directives on File: No
[2021-06-23] MEDS: LORazepam 0.5 MG TABLET PO (12:04)
[2021-06-23] MEDS: Simethicone 80 MG TAB.CHEW PO (12:04)
== END 2021-06-23 12:21 | disposition home or self-care (01) ==
PROVIDERS: Emergency Provider Emergency Medicine; PCP Internal Medicine
DX: R14.1 Gas pain (principal); F41.9 Anxiety disorder, unspecified
CPT/HCPCS: 99283

== ENCOUNTER 2021-07-13 14:16 | Outpatient (REF) | payer MEDICARE, OTHER, SELFPAY ==
[2021-07-13 15:30] LABS: Influenza A PCR NEGATIVE (Negative); Influenza B PCR NEGATIVE (Negative); Resp Syncy Virus RNA Qual PCR NEGATIVE (Negative); SARS COV2 PCR INHOUSE NEGATIVE (Negative)
== END 2021-07-13 14:17 | disposition home or self-care (01) ==
LOC: HO.LNP 14:16
PROVIDERS: Visit Provider Internal Medicine
DX: Z20.822 Contact with and (suspected) exposure to COVID-19 (principal); R43.9 Unspecified disturbances of smell and taste
CPT/HCPCS: 0241U

== ENCOUNTER → 2021-07-16 09:24 | Outpatient (REF) | payer MEDICARE, OTHER, SELFPAY ==
--- NOTE | 2021-07-16 09:29 | CA_ITS ---
Transthoracic Echocardiogram Patient (Last, First, Middle): Bella Henley G Gender: Female Date of : 1940 Age: 80 Procedure Date: 07/16/2021 Procedure Type: Transthoracic Echocardiogram Location: OP Height: 170.18 cm Weight: 81.19 kg BSA: 1.93 m2 Heart Rate: bpm BP: 128 / 68 mmHg Computer [employer] Para Professional: Referring MD: Tre Duffy MD Symptoms: I35.0 - Nonrheumatic aortic (valve) stenosis Study Quality: Fair ECG Rhythm: Sinus Conclusions: - The left ventricular systolic function is normal. The visually estimated ejection fraction is between 60-65%. - There is severe calcification of the aortic valve. There is moderate aortic valve stenosis. - There is mild mitral annular calcification. There is mild mitral valve regurgitation. Findings Left Ventricle Normal left ventricular cavity size. There is mildly increased left ventricular wall thickness. The left ventricular systolic function is normal. The visually estimated ejection fraction is between 60-65%. There is no evidence of regional wall motion abnormalities. E/E prime ratio is between 8 and 15 consistent with indeterminate filling pressures. Evidence suggests grade I (mild) diastolic dysfunction. Right Ventricle Normal right ventricular cavity size and systolic function. Atria Both atria are normal in size. Aortic Valve There is severe calcification of the aortic valve. There is moderate aortic valve stenosis. The peak aortic velocity is 3.16 m/s with a calculated peak gradient of 40 mmHg. The mean gradient is 26 mmHg. The aortic valve area is 1.17 cm2. Dimensionless index 0.37. Stroke volume index 54ml. Mitral Valve There is mild mitral annular calcification. There is mild mitral valve regurgitation. There is no mitral valve stenosis. Pulmonic Valve The pulmonic valve was not well visualized. Tricuspid Valve Normal tricuspid valve structure. There is mild tricuspid valve regurgitation. The pulmonary artery systolic pressure is normal. Great Vessels The aorta was not well visualized. Venous The inferior vena cava is normal in size and collapses greater than 50% with inspiration. Pericardium/Pleural There is no evidence of pericardial effusion. Prior Study Comparison Changes noted compared to prior study dated: 03/03/2021. Aortic gradients lower than prior study. Measurements 2D Linear Measurements IVSd: 1.05 0.6-0.9/0.6-1.0 cm LVIDd: 3.84 3.9-5.3/4.2-5.9 cm LVIDd Index: 1.99 2.4-3.2/2.2-3.1 cm/m2 LVIDs: 2.59 2.0-3.6 cm LVPWd: 1.10 0.7-1.1 cm Ao Root: 3.80 2.1-3.5 cm LA Diam: 2.80 2.7-3.8/3.0-4.0 cm LAIDs Index: 1.45 1.5-2.3 cm/m2 LV Mass: 164.63 67-162/88-224 g LV Mass Index: 85.30 43-95/49-115 g/m2 LVOT Diam: 2.10 3.0+(-)1.3 cm Mitral Valve MV Pk E: 0.79 MV PK A: 1.27 MV Decel Time: 75.00 E/A: 0.60 E'Lateral: 13.10 E'Medial: 6.85 E/E' Med: 11.50 E/E' Lat: 6.00 PHT: 22.00 MVA PHT: 10.00 Decel [place]: 10.49 Aortic Valve AoV Pk Anthony: 3.16 AoV Mn Anthony: 2.42 AoV VTI: 0.76 AoV Pk Grad: 40.00 Aov Mn Grad: 26.00 LULA Cont.VTI: 1.17 LVOT LVOT Pk Anthony: 1.12 LVOT Mn Anthony: 0.78 LVOT VTI: 0.26 LVOT Pk Grad: 5.00 LVOT Mn Grad: 3.00 LVOT Diam: 2.10 LVOT Area: 3.46 Diastolic Function MV Pk E: 0.79 MV Pk A: 1.27 E/A: 0.60 E'Medial: 6.85 E/E' Med: 11.50 E' Laterial: 13.10 E/E' Lat: 6.00 Right Ventricle TAPSE (mm): 24.00 Tricuspid Valve TR Pk Anthony: 2.84 TR Pk Grad: 32.00 Great Vessels Aorta Ao Root-2D: 3.80 2.0-3.7 cm Pulmonary Valve PV Pk Anthony: 0.70 Peak PV Grad: 2.00 Updated in Other Vendor System with Status of Final Tre Duffy MD electronically signed on 07/17/2021 2:28:17 PM with status of Final
== END ==
LOC: HO.CARD 09:24
PROVIDERS: Visit Provider Internal Medicine
DX: I35.0 Nonrheumatic aortic (valve) stenosis (principal)
CPT/HCPCS: 93306

== ENCOUNTER → 2021-07-21 13:54 | Outpatient (BNVA) | payer MEDICARE, OTHER, SELFPAY | PROVIDERS: PCP Physician Assistant; Referring Provider Physician Assistant; Visit Provider Internal Medicine | DX: I35.0 Nonrheumatic aortic (valve) stenosis (principal); I10 Essential (primary) hypertension; F41.9 Anxiety disorder, unspecified; R07.2 Precordial pain | CPT/HCPCS: 99212 ==

== ENCOUNTER 2021-07-23 09:04 | Outpatient (REF) | payer MEDICARE, OTHER, SELFPAY ==
[2021-07-23 10:18] LABS: PLT CLUMP 1; Red Cell Distribution Width 13.1 % (11.0-16.0)
[2021-07-23 10:20] LABS: Hematocrit 33.9 % (37.0-47.0); Hemoglobin 10.9 g/dl (12.0-16.0); Mean Corpuscular HGB Conc 32.2 g/dl (31.0-35.0); Mean Corpuscular Hemoglobin 29.9 pg (27.0-33.0); Mean Corpuscular Volume 93.1 fL (80.0-98.0); Mean Platelet Volume 11.8 fL (9.4-12.3); Platelet Count 120 X10*3/uL (160-400); Red Blood Count 3.64 X10*6/uL (4.20-5.50)
[2021-07-23 10:26] LABS: Estimated Average Glucose 111 mg/dL; Hemoglobin A1c % 5.5 %
[2021-07-23 10:43] LABS: Alanine Aminotransferase 12 U/L (0-31); Albumin Level 4.1 g/dL (3.5-5.0); Alkaline Phosphatase 111 U/L (39-117); Anion Gap 10 (12-20); Aspartate Amino Transferase 18 U/L (5-31); Bilirubin Total 0.4 mg/dL (0.0-1.0); Blood Urea Nitrogen 18 mg/dL (9-16); Carbon Dioxide 32 mmol/L (22-29); Chloride 102 mmol/L (96-108); Cholesterol 205 mg/dL; Estimated Glomerular Filt Rate > 60; Glucose Fasting 93 mg/dL (60-99); HDL Cholesterol 56 mg/dL; LDL Cholesterol Calculated 122 mg/dl; Potassium 4.5 mmol/L (3.3-5.1); Sodium 139 mmol/L (135-145); Total Protein 6.8 g/dL (6.5-8.0); Triglycerides 139 mg/dL
[2021-07-23 10:53] LABS: Creatinine Urine 130.96 mg/dL; Microalbum/Creatinine Ratio Ur 12.9 ug/mg cr
[2021-07-23 11:05] LABS: TSH reflex Free T4 1.09 uIU/mL (0.32-4.0)
[2021-07-23 11:24] LABS: Vitamin B12 324 pg/mL (200-900)
== END 2021-07-23 09:05 | disposition home or self-care (01) ==
LOC: HO.10HDL 09:04
PROVIDERS: Visit Provider Physician Assistant
DX: E53.8 Deficiency of other specified B group vitamins (principal); I10 Essential (primary) hypertension
CPT/HCPCS: 36415; 80053; 80061; 82043; 82607; 82746; 83036; 84443; 85027

== ENCOUNTER 2021-07-26 15:37 | Outpatient (REF) | payer MEDICARE, OTHER, SELFPAY ==
--- NOTE | ~2021-07-26 | XR_ITS ---
EXAMINATION: XR CHEST CLINICAL INFORMATION: R05.9 - Cough, unspecified COMPARISON: Chest radiographs 09/14/2020, 06/30/2020 TECHNIQUE: 2 views of the chest were obtained. FINDINGS: There is hyperinflation/COPD. The cardiopericardial silhouette is mildly enlarged. The vascularity is normal. There is no pneumothorax, airspace consolidation, vascular congestion, or effusion. 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 The hilar and mediastinal contours are normal. No visible acute bony abnormality. XR/XR chest 2V IMPRESSION: Unremarkable examination.
== END 2021-07-26 15:38 | disposition home or self-care (01) ==
LOC: HO.HMGCX 15:37
PROVIDERS: Visit Provider Internal Medicine
DX: R05.9 Cough, unspecified (principal)
CPT/HCPCS: 71046

== ENCOUNTER → 2021-08-02 08:56 | Outpatient (REF) | payer MEDICARE, OTHER, SELFPAY ==
--- NOTE | ~2021-08-02 | NM_ITS ---
Myocardial perfusion study Indication: Precordial chest pain Technique: The patient was brought in for a Lexiscan perfusion study on 08/02/2021. Patient performed low-level exercise and was injected 0.4 mg of Lexiscan intravenously. Within a minute of injection, 25 mCi of sestamibi was given intravenously. Images were obtained using the SPECT gamma camera interlaced with the gating device. Images were obtained in supine position. Resting perfusion study was performed on 08/03/2021. Patient was administered 25 mCi of sestamibi intravenously at rest. Images were then obtained in supine position. Images obtained with and without CT attenuation. Total DLP 85 mGy-cm. Images were processed with the software and compared side to side in short axis, horizontal long axis and vertical long axis views. Findings: The stress perfusion study showed nonattenuation images show normal uptake of radiotracer in all segments of LV myocardium. Attenuation corrected images show mildly reduced uptake in the apex of the LV myocardium.. The gated study shows normal LV systolic function with calculated LVEF of 65%. LV cavity is normal in size. The gated study shows normal systolic wall thickening and contraction of segments. Resting study shows non attenuated images show normal uptake of radiotracer in all segments of LV myocardium. Attenuation corrected images show minimally reduced in the apex of the LV myocardium. Gating at rest reveals normal systolic wall motion with ejection fraction at 71%. The findings are consistent with likely normal myocardial perfusion. NM/NM cardiolite stress test Impression: 1. Myocardial perfusion imaging study shows likely normal myocardial perfusion 2. Gated LVEF is 65% 3. Transient ischemic dilatation not present EKG is nondiagnostic for ischemia
--- NOTE | 2021-08-02 09:00 | CA_ITS ---
Acquisition Time: 2021-08-02 09:08:55 Total Exercise Time: 00:00:55 Test Indications: CP, HTN Medications: SEE CHART Protocol: BAILEE Max HR: 113 BPM 80% of Pred: 140 BPM Max BP: 172/094 mmHG Max Work Load: 2.6 METS Exercise stress test with exercise 55 seconds of Bailee protocol, with difficulty keeping up with the speed of the treadmill. Treadmill stopped and patient assisted to sitting position. Testing changed to a pharmacological stress test with Lexiscan injection, while sitting and kicking her legs, without anginal symptoms, with isolated PVC, with normotensive response to injection, with nondiagnostic EKG for ischemia. In recovery she reported feeling anxious in her chest and was treated with Aminophylline 75mg IVP to reverse Lexiscan with resolution of symptom. Nuclear images pending. Test reviewed with Dr Duffy Referred By: Tre Duffy Overread By: MUNA HERNANDEZ
== END ==
LOC: HO.CARD 08:56
PROVIDERS: Visit Provider Internal Medicine
DX: R07.2 Precordial pain (principal)
CPT/HCPCS: 78452; 93017; A9500; J0280; J2785

== ENCOUNTER 2021-08-04 | Outpatient (REF) | payer MEDICARE, OTHER, SELFPAY ==
[2021-08-05 12:08] LABS: Influenza A PCR NEGATIVE (Negative); Influenza B PCR NEGATIVE (Negative); Resp Syncy Virus RNA Qual PCR NEGATIVE (Negative); SARS COV2 PCR INHOUSE NEGATIVE (Negative)
== END 2021-08-04 00:01 | disposition home or self-care (01) ==
LOC: HO.LNP
PROVIDERS: Visit Provider Physician Assistant Medical
DX: Z20.822 Contact with and (suspected) exposure to COVID-19 (principal); J06.9 Acute upper respiratory infection, unspecified
CPT/HCPCS: 0241U

== ENCOUNTER 2021-08-05 11:10 | Outpatient (REF) | payer MEDICARE, OTHER, SELFPAY | END 2021-08-05 11:11 | disposition home or self-care (01) | LOC: HO.LNP 11:10 | PROVIDERS: Visit Provider Physician Assistant Medical | DX: Z13.89 Encounter for screening for other disorder (principal) ==

== ENCOUNTER → 2021-08-10 09:01 | Outpatient (BNVA) | payer MEDICARE, OTHER, SELFPAY | PROVIDERS: PCP Physician Assistant; Referring Provider Physician Assistant; Visit Provider Internal Medicine | DX: I35.0 Nonrheumatic aortic (valve) stenosis (principal); I10 Essential (primary) hypertension; F41.9 Anxiety disorder, unspecified | CPT/HCPCS: 99212 ==

== ENCOUNTER 2021-08-16 14:28 | Emergency (ER) | payer MEDICARE, OTHER, SELFPAY ==
--- NOTE | 2021-08-16 | ECG_ITS ---
Test Reason : cp Blood Pressure : / mmHG Vent. Rate : 094 BPM Atrial Rate : 094 BPM P-R Int : 194 ms QRS Dur : 084 ms QT Int : 362 ms P-R-T Axes : 048 -10 033 degrees QTc Int : 452 ms Normal sinus rhythm Septal infarct , age undetermined Abnormal ECG When compared with ECG of 18-MAY-2021 12:50, OR interval has decreased Referred By: Generic ED Physician Electronically Signed By:MICHEL CHARLES MD
--- NOTE | ~2021-08-16 | XR_ITS ---
EXAMINATION: XR CHEST CLINICAL INFORMATION: Chest pain COMPARISON: 07/26/2021 TECHNIQUE: Frontal view of the chest was obtained. FINDINGS: Calcified aortic arch. Normal heart size. No pleural effusion or pneumothorax. Lungs are hyperexpanded consistent with emphysema. No focal consolidation or mass. No acute osseous abnormality. XR/XR chest 1V IMPRESSION: No acute pulmonary disease.
[2021-08-16 15:41] VITALS: BP 165/94; PULSE 97; RESP 18; TEMP 37.2; O2SAT 93; BMI 29.0
[2021-08-16 16:32] LABS: Basophils Percent Auto 0.5 % (0-2); Eosinophils Absolute Auto 0.1 X10*3/uL (0.0-0.4); Eosinophils Percent Auto 2.1 % (0-4); Imm Gran Abs Auto 0.01 X10*3/uL (0.00-0.03); Imm Gran Pct Auto 0.2 % (0.0-0.4); Lymphocytes Percent Auto 22.4 % (20-40); MANUAL DIFF FLAG SCAN; PLT CLUMP 1; SCAN SMEAR FLAG 1
[2021-08-16 16:34] LABS: Hemoglobin 11.8 g/dl (12.0-16.0); Mean Corpuscular HGB Conc 31.9 g/dl (31.0-35.0); Mean Corpuscular Hemoglobin 29.8 pg (27.0-33.0); Mean Corpuscular Volume 93.4 fL (80.0-98.0); Mean Platelet Volume 11.1 fL (9.4-12.3); Monocytes Absolute Auto 0.3 X10*3/uL (0.1-1.2); Monocytes Percent Auto 5.8 % (2-11); Red Blood Count 3.96 X10*6/uL (4.20-5.50); Red Cell Distribution Width 13.2 % (11.0-16.0)
[2021-08-16 16:42] LABS: Anion Gap 12 (12-20); Blood Urea Nitrogen 15 mg/dL (9-16); Calcium 10.2 mg/dL (8.4-10.2); Carbon Dioxide 31 mmol/L (22-29); Chloride 100 mmol/L (96-108); Creatinine Clr Calc Pharmacy 58.7; Estimated Glomerular Filt Rate > 60; Glucose Random 89 mg/dL (60-115); Potassium 4.3 mmol/L (3.3-5.1); Sodium 139 mmol/L (135-145)
[2021-08-16 16:50] LABS: Troponin-I High Sensitivity 10.9 ng/L (<3.5-17.0)
[2021-08-16 16:52] LABS: White Blood Count 4.4 X10*3/uL (4.8-10.8)
[2021-08-16 16:53] LABS: Platelet Count 138 X10*3/uL (160-400); SLIDE REVIEW VERIFIED
--- NOTE | 2021-08-16 19:26 | ED.CHESTPAIN ---
HPI - Chest Pain General Chief Complaint: Chest Pain Stated Complaint: chest pain Time Seen by Provider: 08/16/21 18:51 Source: patient Mode of arrival: ambulatory Limitations: no limitations History of Present Illness HPI narrative: 80-year-old female with a past medical history of [id number] aortic stenosis who recently had an echocardiogram which revealed severe calcification of aortic valve with a mean gradient across aortic valve 26mmHg with a calculated valve area of 1.1 sq cm. Dimensionless index 0.37. Stroke volume index within normal limits. 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 She reports associated nausea that she has been taking Zofran 4. She reports that she is unsure if this is her chronic GERD. She denies any dizziness, headaches, neck pain/stiffness, jaw pain, palpitations, dyspnea on exertion, orthopnea, vomiting, abdominal pain, back pain, black or bloody stools, dysuria, hematuria, focal or general weakness, recent travel or sick contacts, lower extremity edema or calf tenderness or any other symptoms complaints or concerns at this time. MD complaint: chest pain Pertinent past history: other (See above) Onset (ago): day(s) (2) Timing of current episode: constant, stable and still present Prior episodes: No Onset: during rest Pain location: substernal Pain radiation: left arm Severity: mild Quality: dull and burning Relieving factors: nothing Exacerbating factors: nothing Associated symptoms: nausea Treatment prior to arrival: other (zofran otherwise no other tx ) Risk Factors Coronary artery disease risk factors: hypertension Thoracic aortic dissection risk factors: none Related Data On Oral Contraceptives: No Home Medications Medication Instructions Recorded Confirmed omeprazole 20 mg capsule,delayed 20 mg PO DAILY PRN 08/07/20 08/10/21 release fluticasone propionate 50 1 spray INTRANASAL BID 06/11/21 08/10/21 mcg/actuation nasal spray,suspension acetaminophen 325 mg tablet 325 mg PO QID PRN 06/21/21 08/10/21 desvenlafaxine succinate 25 mg 1 tab PO DAILY 06/21/21 08/10/21 tablet,extended release 24 hr fexofenadine 180 mg tablet 180 mg PO DAILY 06/21/21 08/10/21 amlodipine 2.5 mg tablet 2.5 mg PO DAILY 08/10/21 08/10/21 Previous Rx's Medication Instructions Recorded docusate sodium 100 mg capsule 100 mg PO BID PRN #14 cap 02/24/21 (Colace) polyethylene glycol 3350 17 17 g PO DAILY #119 g 04/12/21 gram/dose oral powder (Miralax) ondansetron 4 mg disintegrating 4 mg PO Q6H #14 tab 06/21/21 tablet alprazolam 0.25 mg tablet 0.25 mg PO TID 30 Days #90 tab 07/22/21 diclofenac sodium 1 % topical gel 2 g TOPICAL QID PRN #100 g 08/10/21 (Arthritis Pain (diclofenac)) ondansetron HCl 4 mg tablet 4 mg PO Q8H PRN #14 tab 08/16/21 (Zofran) Allergies Allergy/AdvReac Type Severity Reaction Status Date / Time Sulfa (Sulfonamide Allergy Intermediate RASH Verified 08/16/21 15:41 Antibiotics) amoxicillin [From AUGMENTIN] Allergy Unknown PER H&P Verified 08/16/21 15:41 clavulanic acid Allergy Unknown PER H&P Verified 08/16/21 15:41 [From AUGMENTIN] garlic [GARLIC] Allergy Unknown PER H&P Verified 08/16/21 15:41 metronidazole [From FLAGYL] Allergy Unknown OCULAR Verified 08/16/21 15:41 MIGRAINES penicillamine Allergy Unknown Unknown Verified 08/16/21 15:41 environmental Allergy Unknown Unknown Uncoded 08/10/21 11:35 flagyl Allergy Unknown Unknown Uncoded 08/10/21 11:35 From KEFLEX Allergy Unknown RASH Uncoded 08/10/21 11:35 Metoprolol Tartrate Allergy Unknown Unknown Uncoded 08/10/21 11:35 Sulfacet-R Allergy Unknown Unknown Uncoded 08/10/21 11:35 Review of Systems Review of Systems: Constitutional : No Weight loss, No Fever, No Chills, No Night Sweats, No Fatigue, No Malaise ENT/Mouth : No Hearing loss, No Ear Pain, No Nasal Congestion, No Sinus Pain, No Hoarseness, No sore throat, No Rhinorrhea, No Swallowing Difficulty Eyes: No Eye Pain, No Swelling, No Redness, No Foreign Body, No Discharge, No Vision Changes Cardiovascular : + Chest Pain, No SOB, No Dyspnea on Exertion, No Orthopnea, No Edema, No Palpitations Respiratory : No Cough, No Sputum, No Wheezing, No Smoke Exposure, No Dyspnea Gastrointestinal : + Nausea, No Vomiting, No Diarrhea, No Constipation, No abdominal Pain, No Hematochezia, No Melena Genitourinary : no irregular bleeding, No Dysuria, No Urinary Frequency, No Hematuria, No Urinary Incontinence, No Urgency, No Flank Pain, No Urinary Flow Changes, No Hesitancy Musculoskeletal : No joint pain, No Myalgias, No Joint Swelling Skin : No Skin Lesions, No rash Neuro : No Weakness, No Numbness, No Paresthesias, No Loss of Consciousness, No Dizziness, No Headache Psych : No Anxiety/Panic, No Depression, No SI/HI/AH/VH, No Social Issues, Heme/Lymph: No Bruising, No Bleeding,No Lymphadenopathy Endocrine : No Polyuria, No Polydipsia, No Temperature Intolerance Yes all other systems are reviewed and are negative [facility] Past Medical History Attestation statement: The following information was validated with the patient. Medical History Anxiety Diverticulitis GERD (gastroesophageal reflux disease) Heart murmur Irritable bowel Surgical History History of appendectomy History of tonsillectomy Family History Family History Father No problems noted. Mother No problems noted. Social History Social History Housing: House Alcohol intake: never Patient Tobacco Use Status: Former Tobacco user e-Cigarette/Vaping Use: Never Used Second Hand Smoke Exposure: No Advance Directives: No Advance Directives Information Provided: Yes Current occupational status: retired Physical Exam Vital Signs: Vital Signs: Last Vital Signs Temp 98.9 F 08/16/21 15:41 Pulse 97 08/16/21 15:41 Resp 18 08/16/21 15:41 BP 165/94 H 08/16/21 15:41 Pulse Ox 93 08/16/21 15:41 BMI result Body Mass Index 29.0 vital signs have been reviewed as normal and appeared to be correct. Blood pressure hypertensive at 165/94 Heart rate normal. Respiration rate normal. Temperature normal. Oxygen saturation normal. Appearance: Alert. Oriented X3. No acute distress. Head: Normal external exam. Normocephalic. Atraumatic. Eyes: PERRLA. EOMI. Conjunctiva and sclera normal. Eyelids normal. ENT: Pharynx normal. Uvula midline. Moist mucous membranes. Neck: Normal inspection. Neck supple. FROM. No adenopathy. Thyroid Normal. No meningeal signs. No neck mass noted. No JVD noted. CVS: Normal heart rate and rhythm. Heart sound normal. Pulses normal throughout. No murmurs/rales/gallops. Respiratory: No respiratory distress. Painless inspiration. Breath sounds normal. No wheezes/rales/rhonchi noted. Chest nontender. No accessory muscle usage noted or decreased air movement noted. Abdomen: Soft and nontender. Bowel sounds normal in all 4 quadrants. No distention noted. No organomegaly noted. No visible injury noted. Back: No CVA tenderness. Full range of motion noted. No rashes/lesion/induration/fluctuance or signs of infection noted. Skin: Skin warm and dry. Normal skin color. Normal skin turgor. No rashes/lesions/lacerations noted. Extremities: No lower extremity edema. No calf tenderness is noted. Extremities exhibit normal range of motion. Extremities nontender. Neuro: Oriented X 3. No motor deficit. No sensory deficit. Reflexes normal. Normal steady gait. No focal neuro deficits noted. Vascular: + radial pulses/+ 2 distal pedal pulses/+2 dorsalis pedis b/l. Normal cap refill. No cyanosis noted to upper extremity nails and lower extremity toes nails. Course Course Course Narrative: 20pm - repeat troponin negative delta. Patient reports she feels completely better and symptoms have resolved after the GI cocktail therefore most likely GERD. 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 Patient understands agrees with this plan. MDM - Chest Pain MDM Narrative Medical decision making narrative: 19pm 80-year-old female with a past medical history of [id number] aortic stenosis who recently had an echocardiogram which revealed severe calcification of aortic valve with a mean gradient across aortic valve 26mmHg with a calculated valve area of 1.1 sq cm. Dimensionless index 0.37. Stroke volume index within normal limits. 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 She reports associated nausea that she has been taking Zofran 4. She reports that she is unsure if this is her chronic GERD. Patient most likely GERD/atypical chest pain although will rule out ACS Labs were obtained while the patient was in the waiting room and revealed a white blood cell count 4000 which is similar compared to prior, mild baseline anemia similar compared to prior low platelet count 138 similar when compared to prior. Carbon dioxide 31. Troponin 10.9. Otherwise all other labs are within normal limits. Chest x-ray within normal limits no acute processes are noted. EKG normal sinus rhythm ventricular rate of [address] abnormalities no acute ischemic change are noted. Similar compared to prior EKG on 05/18/2021. Therefore at this time will provide a GI cocktail repeat troponin if the repeat troponin is negative delta will DC home with instructions to return if any new or worsening symptoms for atypical chest pain and to follow-up with Cardiology/PCP. Patient understands agrees with this plan. Differential Diagnosis Differential diagnosis: Likely stable angina, atypical chest pain and st elevation myocardial infarction Medical Records Data Attestation: I reviewed the patient's medical records. Lab Data Attestation: I reviewed the patient's lab results. Result diagrams: 08/16/21 16:23 08/16/21 16:23 Labs: Lab Results 08/16/21 08/16/21 08/16/21 Range/Units 16:23 16:23 16:23 WBC 4.4 L (4.8-10.8) X10*3/uL RBC 3.96 L (4.20-5.50) X10*6/uL Hgb 11.8 L (12.0-16.0) g/dl Hct 37.0 (37.0-47.0) % MCV 93.4 (80.0-98.0) fL MCH 29.8 (27.0-33.0) pg MCHC 31.9 (31.0-35.0) g/dl RDW 13.2 (11.0-16.0) % Plt Count 138 L (160-400) X10*3/uL MPV 11.1 (9.4-12.3) fL Immature Gran % (Auto) 0.2 (0.0-0.4) % Neut % (Auto) 69.0 (45-73) % Lymph % (Auto) 22.4 (20-40) % Tate % (Auto) 5.8 (2-11) % Eos % (Auto) 2.1 (0-4) % Baso % (Auto) 0.5 (0-2) % Lymph # (Auto) 1.0 L (1.2-4.9) X10*3/uL Tate # (Auto) 0.3 (0.1-1.2) X10*3/uL Eos # (Auto) 0.1 (0.0-0.4) X10*3/uL Baso # (Auto) 0.0 (0.0-0.2) X10*3/uL Abs Immat Gran (auto) 0.01 (0.00-0.03) X10*3/uL Absolute Neuts (auto) 3.0 (2.0-8.3) x10*3/uL Absolute Nucleated RBC 0.000 (0.0-0.012) X10*3/uL Nucleated RBC % (auto) 0.0 (0.0-0.2) /100WBC Smear Tech's Comments VERIFIED Sodium 139 (135-145) mmol/L Potassium 4.3 (3.3-5.1) mmol/L Chloride 100 (96-108) mmol/L Carbon Dioxide 31 H (22-29) mmol/L Anion Gap 12 (12-20) BUN 15 (9-16) mg/dL Creatinine 0.85 (0.5-1.4) mg/dL Estim Creat Clear Calc 58.7 Estimated GFR > 60 Random Glucose 89 (60-115) mg/dL Calcium 10.2 D (8.4-10.2) mg/dL Troponin I High Sens 10.9 (<3.5-17.0) ng/L Imaging Data Chest x-ray: Attestation: I personally reviewed and interpreted this imaging study as follows: Radiologist's impression: FINDINGS: Calcified aortic arch. Normal heart size. No pleural effusion or pneumothorax. Lungs are hyperexpanded consistent with emphysema. No focal consolidation or mass. No acute osseous abnormality. XR/XR chest 1V IMPRESSION: No acute pulmonary disease. ECG Data ECG #1: Attestation: I personally reviewed and interpreted this ECG as follows: ECG interpretation date: 08/16/21 ECG interpretation time: 14:35 Interpretation: EKG normal sinus rhythm ventricular rate of [address] abnormalities no acute ischemic change are noted. Similar compared to prior EKG on 05/18/2021. Discharge Plan Discharge Clinical Impression: Atypical chest pain, GERD (gastroesophageal reflux disease) Patient Disposition: Home, Self-Care Instructions: Gastroesophageal Reflux Disease (ED), Noncardiac Chest Pain (ED) Prescriptions: New ondansetron HCl [Zofran] 4 mg tablet 4 mg PO Q8H PRN (Reason: nausea and vomiting) Qty: 14 RF: 0 No Action docusate sodium [Colace] 100 mg capsule 100 mg PO BID PRN (Reason: Constipation) Qty: 14 RF: 0 polyethylene glycol 3350 [Miralax] 17 gram/dose powder 17 g PO DAILY Qty: 119 RF: 0 desvenlafaxine succinate 25 mg tablet extended release 24 hr 1 tab PO DAILY RF: 0 acetaminophen 325 mg Tablet 325 mg PO QID PRN (Reason: Pain) RF: 0 fexofenadine [Laurel] 180 mg Tablet 180 mg PO DAILY RF: 0 ondansetron 4 mg tablet,disintegrating 4 mg PO Q6H Qty: 14 RF: 0 alprazolam 0.25 mg tablet 0.25 mg PO TID 30 Days Qty: 90 RF: 1 diclofenac sodium [Arthritis Pain (diclofenac)] 1 % gel 2 g topical QID PRN (Reason: pain) Qty: 100 RF: 0 omeprazole 20 mg capsule,delayed release(DR/EC) 20 mg PO DAILY PRN (Reason: gi upset) RF: 0 fluticasone propionate 50 mcg/actuation spray,suspension 1 spray intranasal BID RF: 0 amlodipine 2.5 mg tablet 2.5 mg PO DAILY RF: 0 Referrals: Nick Gomez PA-C [Primary Care Provider] - 2 days Print Language: Indonesian
[2021-08-16] MEDS: Magnesium Hydrox/Alum Hydrox 30 ML ORAL.SUSP PO (19:54)
[2021-08-16] MEDS: Lidocaine HCl Viscous 2 % 15 ML SOLUTION MUCOUS MEM (19:54)
[2021-08-16] MEDS: Omeprazole 40 MG CAPSULE.DR PO (19:54)
[2021-08-16 20:22] LABS: Troponin-I High Sensitivity 9.9 ng/L (<3.5-17.0)
== END 2021-08-16 20:52 | disposition home or self-care (01) ==
PROVIDERS: Physician Assistant Medical; Emergency Provider Emergency Medicine; PCP Physician Assistant
DX: R07.89 Other chest pain (principal); K21.9 Gastro-esophageal reflux disease without esophagitis; I10 Essential (primary) hypertension; I35.0 Nonrheumatic aortic (valve) stenosis; Z79.899 Other long term (current) drug therapy
CPT/HCPCS: 36415; 71045; 80048; 84484; 85025; 93005; 99283; 99284

== ENCOUNTER 2021-09-18 14:46 | Outpatient (REF) | payer MEDICARE, OTHER, SELFPAY ==
[2021-09-18 15:01] LABS: Binax Internal Control QC Valid; Binax Now Covid-19 Ag Negative (Negative)
== END 2021-09-18 14:47 | disposition home or self-care (01) ==
LOC: HO.HMGCLDS 14:46
PROVIDERS: Visit Provider Physician Assistant Medical
DX: Z13.89 Encounter for screening for other disorder (principal)

== ENCOUNTER 2021-09-23 14:45 | Outpatient (REF) | payer MEDICARE, OTHER, SELFPAY ==
--- NOTE | ~2021-09-23 | XR_ITS ---
EXAMINATION: XR ABDOMEN COMPLETE CLINICAL INDICATION: K57.92 - Diverticulitis of intestine, part unspecified, COMPARISON: CT abdomen and pelvis with contrast 06/21/2021, KUB 04/12/2021 TECHNIQUE: 4 views of the abdomen are obtained. FINDINGS: There is scattered gas in the bowel of normal caliber. There is moderate stool in the ascending colon. There is no gaseous dilatation of bowel, differential air-fluid levels, pneumatosis, or free air. The lung bases appear clear. There are no visible urinary tract calculi. Multilevel degenerative changes are present lumbar spine. XR/XR abdomen min 2V IMPRESSION: No obstruction or abnormal collections of gas.
== END 2021-09-23 14:46 | disposition home or self-care (01) ==
LOC: HO.HMGCX 14:45
PROVIDERS: PCP Physician Assistant; Visit Provider Physician Assistant
DX: K57.92 Diverticulitis of intestine, part unspecified, without perforation or abscess without bleeding (principal)
CPT/HCPCS: 74019

== ENCOUNTER 2021-09-27 11:24 | Outpatient (REF) | payer MEDICARE, OTHER, SELFPAY ==
[2021-09-27 13:53] LABS: Hematocrit 33.6 % (37.0-47.0); Hemoglobin 10.7 g/dl (12.0-16.0); Mean Corpuscular HGB Conc 31.8 g/dl (31.0-35.0); Mean Corpuscular Hemoglobin 29.7 pg (27.0-33.0); Mean Corpuscular Volume 93.3 fL (80.0-98.0); Mean Platelet Volume 12.1 fL (9.4-12.3); Platelet Count 161 X10*3/uL (160-400); Red Cell Distribution Width 13.3 % (11.0-16.0); White Blood Count 4.3 X10*3/uL (4.8-10.8)
[2021-09-27 14:09] LABS: Alanine Aminotransferase 11 U/L (0-31); Albumin Level 4.1 g/dL (3.5-5.0); Alkaline Phosphatase 90 U/L (39-117); Aspartate Amino Transferase 16 U/L (5-31); Bilirubin Direct < 0.2 mg/dL (0.0-0.5); Bilirubin Total 0.3 mg/dL (0.0-1.0); Iron 50 mcg/dL (30-160); Percent Iron Saturation 16 % (15-50); Total Iron Binding Capacity 321 mcg/dL (228-428); Total Protein 6.9 g/dL (6.5-8.0); Unsaturated Iron Binding 271 ug/dL
[2021-09-27 14:30] LABS: Ferritin 39 ng/mL (10-250)
== END 2021-09-27 11:25 | disposition home or self-care (01) ==
LOC: HO.10HDL 11:24
PROVIDERS: Visit Provider Physician Assistant
DX: D50.9 Iron deficiency anemia, unspecified (principal); R19.5 Other fecal abnormalities
CPT/HCPCS: 36415; 80076; 82728; 83540; 85027

== ENCOUNTER 2021-09-28 10:31 | Emergency (ER) | payer MEDICARE, OTHER, SELFPAY ==
--- NOTE | ~2021-09-28 | XR_ITS ---
EXAMINATION: XR ABDOMEN KUB CLINICAL INDICATION: Constipation. COMPARISON: None TECHNIQUE: AP view of the abdomen. FINDINGS: The large amount of stool seen throughout the colon. There is no organomegaly. No gross bony abnormality seen. XR/XR KUB IMPRESSION: Moderate constipation.
--- NOTE | ~2021-09-28 | CT_ITS ---
EXAMINATION: CT GI BLEED ABDOMEN PELVIS WITHOUT AND WITH CONTRAST. CLINICAL INFORMATION: Bloody stools and abdominal pain COMPARISON: CT abdomen pelvis 06/21/2021. TECHNIQUE: 5 mm thin axial and reformatted 2 minutes thin axial images of abdomen pelvis were obtained without, following with 85 mL Omnipaque 350 and delayed images 2 minutes later. DLP 518. FINDINGS: There is platelike atelectasis in both lung bases. The heart size is normal. No radiopaque gallstone seen. There is a solitary radiopaque 6 mm radiopaque calculi upper pole left kidney. Postcontrast the liver is normal size shape and density. There is a nonenhancing 1.2 cm cyst right hepatic lobe. No additional lesions seen. No intrahepatic ductal dilatation. The gallbladder is unremarkable. Visualized pancreas, spleen and bilateral adrenal glands unremarkable. Both kidney nephrograms are symmetrical in size, shape and position. No focal enhancing lesion, cyst or hydronephrosis seen there is a nonobstructive 6 mm calculi upper pole left kidney There is mild ectasia of the thoracoabdominal aorta measuring 3.2 x 2.7 cm and aneurysmally dilated distal abdominal aorta measuring 2.8 x 3.1 cm on axial image 35/9. The celiac and SMA are widely patent. The BRANDT is not visualized. Mild atherosclerotic changes seen in the right proximal right renal artery but solitary renal arteries bilaterally are patent. There is scattered stool and gas seen throughout the colon consistent with severe constipation. There is scattered cartilaginous sigmoid colon without diverticulitis. The small bowel loops are unremarkable. The stomach is nondistended. Postcontrast there is no extravasation of contrast seen anywhere in the colon and the small bowel loops on immediate postop or delayed images. Imaging to the pelvis reveals unremarkable urinary bladder. The uterus is surgically removed. No free fluid seen. Grade 1 anterolisthesis L4 over L5 is noted. Rest of the vertebral alignment and disc heights are normal. There is moderate bilateral L4-L5 and L3-L4 facet joint arthropathy No lytic or sclerotic process seen. 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 BRANDT is not visualized. Rest of the abdominal aortic branches are patent. Moderate to severe constipation. There is no contrast extravasation seen to suspect any site of bleed. Colonic diverticulosis most prominent in the sigmoid colon without mural thickening or diverticulitis. Nonobstructive 6 mm radiopaque calculi upper pole left kidney. No caliectasis or hydronephrosis seen. Probable small right hepatic lobe cyst, stable compared to previous study 06/21/2020.
[2021-09-28 10:40] VITALS: BP 146/83; PULSE 100; RESP 18; TEMP 36.6; O2SAT 99; BMI 30.2
--- NOTE | 2021-09-28 13:59 | ED_ITS ---
HPI - General Adult General Chief complaint: General Medical <Ilsa Navarro NP - Last Filed: 09/28/21 18:29> Stated complaint: constipation <Ilsa Navarro NP - Last Filed: 09/28/21 18:29> Time Seen by Provider: 09/28/21 13:16 <Ilsa Navarro NP - Last Filed: 09/28/21 18:29> Source: patient <Ilsa Navarro NP - Last Filed: 09/28/21 18:29> Mode of arrival: ambulatory <Ilsa Navarro NP - Last Filed: 09/28/21 18:29> Limitations: no limitations <Ilsa Navarro NP - Last Filed: 09/28/21 18:29> History of Present Illness HPI narrative: 80yo female with history of hypertension, GERD, anxiety here with complaints of abdominal pain, nausea and bloody stools. Patient tells me on September 18 she had about 24-36 hours bloody diarrhea with associated abdominal pain and nausea. This seemed to resolve but since then she has had very small hard stools that are bloody which she describes as dark and almost black. She has also had left-sided of lower abdominal pain with this and nausea. No fevers or chills. Patient is not on any anticoagulation. She spoke to her radio officer and plan was to do some stool studies but patient tells me t leyla she became more concerned about the blood which prompted her to come to the emergency department. <Ilsa Navarro NP - Last Filed: 09/28/21 18:29> Related Data Home medications: Home Medications Medication Instructions Recorded Confirmed omeprazole 20 mg capsule,delayed 20 mg PO DAILY PRN 08/07/20 09/27/21 release fluticasone propionate 50 1 spray INTRANASAL BID 06/11/21 09/27/21 mcg/actuation nasal spray,suspension acetaminophen 325 mg tablet 325 mg PO QID PRN 06/21/21 09/27/21 desvenlafaxine succinate 25 mg 1 tab PO DAILY 06/21/21 09/27/21 tablet,extended release 24 hr fexofenadine 180 mg tablet 180 mg PO DAILY 06/21/21 09/27/21 lisinopril 5 mg tablet 2.5 mg PO DAILY tab 09/18/21 09/27/21 Previous Rx's Medication Instructions Recorded alprazolam 0.25 mg tablet 0.25 mg PO TID 30 Days #90 tab 07/22/21 diclofenac sodium 1 % topical gel 2 g TOPICAL QID PRN #100 g 08/10/21 (Arthritis Pain (diclofenac)) ondansetron HCl 4 mg tablet 4 mg PO Q8H PRN #14 tab 08/16/21 (Zofran) cyanocobalamin (vitamin B-12) 1,000 mcg PO DAILY #60 tab 08/17/21 1,000 mcg tablet,extended release (Vitamin B-12 ER) <Ilsa Navarro NP - Last Filed: 09/28/21 18:29> Allergies/adverse reactions: Allergies Allergy/AdvReac Type Severity Reaction Status Date / Time Sulfa (Sulfonamide Allergy Intermediate RASH Verified 09/27/21 10:26 Antibiotics) amoxicillin [From Allergy Unknown PER H&P Verified 09/27/21 10:26 AUGMENTIN] clavulanic acid Allergy Unknown PER H&P Verified 09/27/21 10:26 [From AUGMENTIN] garlic [GARLIC] Allergy Unknown PER H&P Verified 09/27/21 10:26 metronidazole [From Allergy Unknown OCULAR Verified 09/27/21 10:26 FLAGYL] MIGRAINES penicillamine Allergy Unknown Unknown Verified 09/27/21 10:26 environmental Allergy Unknown Unknown Uncoded 09/27/21 10:26 flagyl Allergy Unknown Unknown Uncoded 09/27/21 10:26 From KEFLEX Allergy Unknown RASH Uncoded 09/27/21 10:26 Metoprolol Tartrate Allergy Unknown Unknown Uncoded 09/27/21 10:26 Sulfacet-R Allergy Unknown Unknown Uncoded 09/27/21 10:26 <Ilsa Navarro NP - Last Filed: 09/28/21 18:29> Review of Systems 2 Verdana 4l Review of Systems: Verdana 4d Yes all other systems are reviewed and are negative Verdana 4Il <Ilsa Navarro NP - Last Filed: 09/28/21 18:29> Verdana 4d Verdana 4l Constitutional: Verdana 4d Verdana 4d Constitutional: Verdana 4d Reports no additional constitutional complaints, Denies body ache(s), Denies chills, Denies fever(s), Denies headache(s) and Denies weakness Verdana 4Il <Ilsa Navarro NP - Last Filed: 09/28/21 18:29> VerdanaVerdana 4d Eyes: Eyes: Reports no additional eye complaints and Denies change in vision <Ilsa Navarro NP - Last Filed: 09/28/21 18:29> ENT: Reports system reviewed and no additional complaints, except as documented, Denies dizziness, Denies headache(s), Denies nasal congestion, Denies nasal discharge and Denies neck pain <Ilsa Navarro NP - Last Filed: 09/28/21 18:29> Cardiovascular: Cardiovascular: Reports no additional cardiovascular complaints, Denies chest pain, Denies leg edema and Denies dyspnea <Ilsa Navarro NP - Last Filed: 09/28/21 18:29> Respiratory: Respiratory: Reports no additional respiratory complaints, Denies cough and D enies dyspnea <Ilsa Navarro NP - Last Filed: 09/28/21 18:29> Gastrointestinal: Gastrointestinal: Reports no additional gastrointestinal complaints, Reports abdominal pain, Reports melena, Reports diarrhea, Reports nausea and Denies vomiting <Ilsa Navarro NP - Last Filed: 09/28/21 18:29> Genitourinary: Genitourinary: Reports no additional female genitourinary complaints and Denies urinary incontinence <Ilsa Navarro NP - Last Filed: 09/28/21 18:29> Musculoskeletal: Musculoskeletal: Reports no additional musculoskeletal complaints, Denies back pain, Denies arthralgias, Denies joint swelling, Denies neck pain, Denies numbness and Denies tingling <Ilsa Navarro NP - Last Filed: 09/28/21 18:29> Integumentary/Breasts: Skin/Breast: Reports system reviewed and no additional complaints, except as docu and Denies rash <Ilsa Navarro NP - Last Filed: 09/28/21 18:29> Neurologic: Reports system reviewed and no additional complaints, except as documented, Denies Abnormal speech present, Denies dizziness, Denies headache(s), Denies numbness, Denies tingling and Denies weakness <Ilsa Navarro NP - Last Filed: 09/28/21 18:29> [facility] Past Medical History Attestation statement: The following information was validated with the patient. <Ilsa Navarro NP - Last Filed: 09/28/21 18:29> Source: old records reviewed and nursing notes reviewed <Ilsa Navarro NP - Last Filed: 09/28/21 18:29> Medical History: Medical History Anxiety Diverticulitis GERD (gastroesophageal reflux disease) Heart murmur Irritable bowel <Ilsa Navarro NP - Last Filed: 09/28/21 18:29> Surgical History: Surgical History History of appendectomy History of tonsillectomy <Ilsa Navarro NP - Last Filed: 09/28/21 18:29> Family History Family History: Family History Father No problems noted. Mother No problems noted. <Ilsa Navarro NP - Last Filed: 09/28/21 18:29> Social History Social History: Social History Housing: House Alcohol intake: never Patient Tobacco Use Status: Former Tobacco user e-Cigarette/Vaping Use: Never Used Second Hand Smoke Exposure: No Advance Directives: No Advance Directives Information Provided: No Current occupational status: retired <Ilsa Navarro NP - Last Filed: 09/28/21 18:29> Physical Exam Verdana 4l Vital Signs: Verdana 4d Verdana 4d Vital Signs: Verdana 4d Verdana 4Bd Last Vital Signs Verdana 4d Subscription Agent New 4d Subscription Agent New 4d Temp 97.8 F 09/28/21 15:55 Subscription Agent New 4d Pulse 95 09/28/21 15:55 Subscription Agent New 4d Resp 20 09/28/21 15:55 BP 158/100 H 09/28/21 15:55 Pulse Ox 95 09/28/21 15:55 BMI result Body Mass Index 30.2 <Ilsa Navarro NP - Last Filed: 09/28/21 18:29> Const: General: cooperative, healthy appearing, comfortable and no acute distress <Ilsa Navarro NP - Last Filed: 09/28/21 18:29> Orientation/consciousness: patient oriented x3 <Ilsa Navarro NP - Last Filed: 09/28/21 18:29> Limitations: no limitations <Ilsa Navarro NP - Last Filed: 09/28/21 18:29> HENMT: Head: Yes normal to inspection <Ilsa Navarro NP - Last Filed: 09/28/21 18:29> Ears: hearing grossly normal bilaterally <Ilsa Navarro NP - Last Filed: 09/28/21 18:29> General nose exam: Normal external nose present <Ilsa Navarro NP - Last Filed: 09/28/21 18:29> Face and sinus: Yes normal facial exam <Ilsa Navarro NP - Last Filed: 09/28/21 18:29> Mouth: Normal oral and palatal mucosa present <Ilsa Navarro NP - Last Filed: 09/28/21 18:29> Throat: Yes posterior oropharynx normal <Ilsa Navarro NP - Last Filed: 09/28/21 18:29> Eyes: General: appearance normal, both eyes and all related structures <Ilsa aNvarro NP - Last Filed: 09/28/21 18:29> Pupils: Equal, round and reactive pupils present <Ilsa Navarro NP - Last Filed: 09/28/21 18:29> Neck: Neck: Yes normal visual inspection, Yes full ROM and Yes no lymphadenopathy <Ilsa Navarro NP - Last Filed: 09/28/21 18:29> Chest: Chest palpation & inspection: normal inspection of the chest <Ilsa Navarro NP - Last Filed: 09/28/21 18:29> Resp: Effort & Inspection: normal respiratory effort <Ilsa Navarro NP - Last Filed: 09/28/21 18:29> Auscultation: clear to auscultation bilaterally <Ilsa Navarro NP - Last Filed: 09/28/21 18:29> Cardio: Rate: regular rate <Ilsa Navarro NP - Last Filed: 09/28/21 18:29> Rhythm: regular rhythm <Ilsa Navarro NP - Last Filed: 09/28/21 18:29> Peripheral pulses: Peripheral pulses 2+ throughout <Ilsa Navarro NP - Last Filed: 09/28/21 18:29> GI: Other: Rectal exam shows dark red/black stool <Ilsa Navarro NP - Last Filed: 09/28/21 18:29> Inspection: Yes normal to inspection <Ilsa Navarro NP - Last Filed: 09/28/21 18:29> Palpation (GI): Soft to palpation and Tenderness to palpation present (GI) (Left lower quadrant tenderness. No rebound or guarding) <Ilsa Navarro NP - Last Filed: 09/28/21 18:29> Auscultation: normal bowel sounds <Ilsa Navarro NP - Last Filed: 09/28/21 18:29> Back/Spine/Pelvis: Thoracic/Lumbar Spine: thoracic and lumbar spine normal to inspection <Ilsa Navarro NP - Last Filed: 09/28/21 18:29> Skin: General skin exam: no rashes or lesions noted <Ilsa Navarro NP - Last Filed: 09/28/21 18:29> Neuro: General: patient oriented x3, no focal motor deficits and normal sensation to monofilament <Ilsa Navarro NP - Last Filed: 09/28/21 18:29> Cranial nerves: Yes Equal, round and reactive pupils present <Ilsa Navarro NP - Last Filed: 09/28/21 18:29> Cognition (Neuro): normal cognition <Ilsa Navarro NP - Last Filed: 09/28/21 18:29> Speech: No Abnormal speech present <Ilsa Navarro NP - Last Filed: 09/28/21 18:29> Gait exam (Neuro): Normal gait present <Ilsa Navarro NP - Last Filed: 09/28/21 18:29> Motor exam (neuro): 5/5 motor strength present throughout <Ilsa Navarro NP - Last Filed: 09/28/21 18:29> Extrem: General: Yes normal to inspection <Ilsa Navarro NP - Last Filed: 0 09/28/21 18:29> Course Course Course Narrative: 80-year-old female here with reports bloody stools, left lower abdominal pain with nausea. On exam has tenderness the left lower quadrant with no rebound or guarding. Will check labs, UA, CT abdomen and pelvis. 1730-GI bleed study shows no active GI bleeding Hemoglobin 11.4 and hematocrit 35.6. Reviewed CBC from yesterday which shows hemoglobin 10.7 and hematocrit 33.6. Patient's baseline is 11 and 34. All other labs are unremarkable. Patient has had no additional stools since being in the emergency department. Discussed the case with Dr. Schreiber from GI. Patient will likely need outpatient colonoscopy and endoscopy be however no need for admit for these tonight as the patient is hemodynamically stable with no active bleeding. Reviewed this with the patient and she is comfortable going home and lives with family. Reviewed worrisome signs and symptoms of when to return to the emergency department. Comfortable discharge home. +patient has large stool burden. Recommended miralax/colace daily which she is prescribed but has not been taking. <Ilsa Navarro NP - Last Filed: 09/28/21 18:29> Medical Decision Making Medical Records Medical records reviewed: Yes I reviewed the patient's medical records. <Ilsa Navarro NP - Last Filed: 09/28/21 18:29> Lab Data Lab results reviewed: Yes I reviewed the patient's lab results. <Ilsa Navarro NP - Last Filed: 09/28/21 18:29> Result diagrams: : 09/28/21 13:57 09/28/21 13:57 <Ilsa Navarro NP - Last Filed: 09/28/21 18:29> Labs: Lab Results 09/28/21 09/28/21 09/28/21 Range/Units 13:49 13:57 13:57 WBC 4.3 L (4.8-10.8) X10*3/uL RBC 3.80 L (4.20-5.50) X10*6/uL Hgb 11.4 L (12.0-16.0) g/dl Hct 35.6 L (37.0-47.0) % MCV 93.7 (80.0-98.0) fL MCH 30.0 (27.0-33.0) pg MCHC 32.0 (31.0-35.0) g/dl RDW 13.5 (11.0-16.0) % Plt Count 153 L (160-400) X10*3/uL MPV 10.8 (9.4-12.3) fL Immature Gran % (Auto) 0.5 H (0.0-0.4) % Neut % (Auto) 65.8 (45-73) % Lymph % (Auto) 25.1 (20-40) % [place] % (Auto) 5.8 (2-11) % Eos % (Auto) 2.1 (0-4) % Baso % (Auto) 0.7 (0-2) % Lymph # (Auto) 1.1 L (1.2-4.9) X10*3/uL [place] # (Auto) 0.3 (0.1-1.2) X10*3/uL Eos # (Auto) 0.1 (0.0-0.4) X10*3/uL Baso # (Auto) 0.0 (0.0-0.2) X10*3/uL Abs Immat Gran (auto) 0.02 (0.00-0.03) X10*3/uL Absolute Neuts (auto) 2.8 (2.0-8.3) x10*3/uL Absolute Nucleated RBC 0.000 (0.0-0.012) X10*3/uL Nucleated RBC % (auto) 0.0 (0.0-0.2) /100WBC PT 11.5 (9.9-13.0) SEC INR 1.0 (0.9-1.1) Sodium (135-145) mmol/L Potassium (3.3-5.1) mmol/L Chloride (96-108) mmol/L Carbon Dioxide (22-29) mmol/L Anion Gap (12-20) BUN (9-16) mg/dL Creatinine (0.5-1.4) mg/dL Estim Creat Clear Calc Estimated GFR Random Glucose (60-115) mg/dL Calcium (8.4-10.2) mg/dL Total Bilirubin (0.0-1.0) mg/dL Direct Bilirubin (0.0-0.5) mg/dL AST (5-31) U/L ALT (0-31) U/L Alkaline Phosphatase (39-117) U/L Total Protein (6.5-8.0) g/dL Albumin (3.5-5.0) g/dL Stool Occult Blood POSITIVE (NEGATIVE) 09/28/21 Range/Units 13:57 WBC (4.8-10.8) X10*3/uL RBC (4.20-5.50) X10*6/uL Hgb (12.0-16.0) g/dl Hct (37.0-47.0) % MCV (80.0-98.0) fL MCH (27.0-33.0) pg MCHC (31.0-35.0) g/dl RDW (11.0-16.0) % Plt Count (160-400) X10*3/uL MPV (9.4-12.3) fL Immature Gran % (Auto) (0.0-0.4) % Neut % (Auto) (45-73) % Lymph % (Auto) (20-40) % [place] % (Auto) (2-11) % Eos % (Auto) (0-4) % Baso % (Auto) (0-2) % Lymph # (Auto) (1.2-4.9) X10*3/uL [place] # (Auto) (0.1-1.2) X10*3/uL Eos # (Auto) (0.0-0.4) X10*3/uL Baso # (Auto) (0.0-0.2) X10*3/uL Abs Immat Gran (auto) (0.00-0.03) X10*3/uL Absolute Neuts (auto) (2.0-8.3) x10*3/uL Absolute Nucleated RBC (0.0-0.012) X10*3/uL Nucleated RBC % (auto) (0.0-0.2) /100WBC PT (9.9-13.0) SEC INR (0.9-1.1) Sodium 142 (135-145) mmol/L Potassium 5.3 H D (3.3-5.1) mmol/L Chloride 103 (96-108) mmol/L Carbon Dioxide 31 H (22-29) mmol/L Anion Gap 13 (12-20) BUN 15 (9-16) mg/dL Creatinine 0.82 (0.5-1.4) mg/dL Estim Creat Clear Calc 62.1 Estimated GFR > 60 Random Glucose 98 (60-115) mg/dL Calcium 9.8 (8.4-10.2) mg/dL Total Bilirubin 0.4 (0.0-1.0) mg/dL Direct Bilirubin 0.2 (0.0-0.5) mg/dL AST 17 (5-31) U/L ALT 9 (0-31) U/L Alkaline Phosphatase 95 (39-117) U/L Total Protein 7.4 (6.5-8.0) g/dL Albumin 4.2 (3.5-5.0) g/dL Stool Occult Blood (NEGATIVE) <Isla Navarro NP - Last Filed: 09/28/21 18:29> Imaging Data CT scan - abdomen: Attestation: I personally reviewed and interpreted this imaging study as follows: <Ilsa Navarro NP - Last Filed: 09/28/21 18:29> Radiologist's impression: IMPRESSION: 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 BRANDT is not visualized. Rest of the abdominal aortic branches are patent. ? Moderate to severe constipation. There is no contrast extravasation seen to suspect any site of bleed. ? Colonic diverticulosis most prominent in the sigmoid colon without mural thickening or diverticulitis. ? Nonobstructive 6 mm radiopaque calculi upper pole left kidney. No caliectasis or hydronephrosis seen. ? Probable small right hepatic lobe cyst, stable compared to previous study 06/21/2020. <Ilsa Navarro NP - Last Filed: 09/28/21 18:29> Discharge Plan Discharge Clinical Impression: Constipation, RB (rectal bleeding) <Ilsa Navarro NP - Last Filed: 09/28/21 18:29> Patient Disposition: Home, Self-Care <Ilsa Navarro NP - Last Filed: 09/28/21 18:29> Instructions: Constipation (ED), Rectal Bleeding (ED) <Ilsa Navarro NP - Last Filed: 09/28/21 18:29> Additional Instructions: Call Dr Escobar to follow-up Start miralax and colace daily Return for worsening bleeding with diarrhea <Ilsa Navarro NP - Last Filed: 09/28/21 18:29> Prescriptions: No Action desvenlafaxine succinate 25 mg tablet extended release 24 hr 1 tab PO DAILY 0RF acetaminophen 325 mg Tablet 325 mg PO QID PRN (Reason: Pain) 0RF fexofenadine [[place]] 180 mg Tablet 180 mg PO DAILY 0RF ondansetron HCl [Zofran] 4 mg tablet 4 mg PO Q8H PRN (Reason: nausea and vomiting) Qty: 14 0RF cyanocobalamin (vitamin B-12) [Vitamin B-12] 1,000 mcg Tablet Extended Release 1,000 mcg PO DAILY Qty: 60 3RF alprazolam 0.25 mg tablet 0.25 mg PO TID 30 Days Qty: 90 1RF diclofenac sodium [Arthritis Pain (diclofenac)] 1 % gel 2 g topical QID PRN (Reason: pain) Qty: 100 0RF Rx Instructions: apply to single elbow, wrist or hand; for hand includes palm/fingers/back of hand lisinopril 5 mg tablet 2.5 mg PO DAILY 0RF omeprazole 20 mg capsule,delayed release(DR/EC) 20 mg PO DAILY PRN (Reason: gi upset) 0RF fluticasone propionate 50 mcg/actuation spray,suspension 1 spray intranasal BID 0RF <Ilsa Navarro NP - Last Filed: 09/28/21 18:29> Referrals: Anatoliy Escobar [Physician] - 2 days <Ilsa Navarro NP - Last Filed: 09/28/21 18:29> Interventions: ED Discharge Assessment Last Done: 09/28/21 18:13 <Ilsa Navarro NP - Last Filed: 09/28/21 18:29> Discharge Date/Time: 09/28/21 18:16 <Ilsa Navarro NP - Last Filed: 09/28/21 18:29>
[2021-09-28 14:02] LABS: MANUAL DIFF FLAG NO
[2021-09-28 14:04] LABS: OBS Int Ctl Valid YES; OBS1 POSITIVE (NEGATIVE)
[2021-09-28 14:05] LABS: Basophils Percent Auto 0.7 % (0-2); Eosinophils Absolute Auto 0.1 X10*3/uL (0.0-0.4); Eosinophils Percent Auto 2.1 % (0-4); Hematocrit 35.6 % (37.0-47.0); Hemoglobin 11.4 g/dl (12.0-16.0); Imm Gran Abs Auto 0.02 X10*3/uL (0.00-0.03); Imm Gran Pct Auto 0.5 % (0.0-0.4); Lymphocytes Absolute Auto 1.1 X10*3/uL (1.2-4.9); Lymphocytes Percent Auto 25.1 % (20-40); Mean Corpuscular Volume 93.7 fL (80.0-98.0); Mean Platelet Volume 10.8 fL (9.4-12.3); Monocytes Absolute Auto 0.3 X10*3/uL (0.1-1.2); Monocytes Percent Auto 5.8 % (2-11); Neutrophils Absolute Auto 2.8 x10*3/uL (2.0-8.3); Neutrophils Percent Auto 65.8 % (45-73); Platelet Count 153 X10*3/uL (160-400); Red Cell Distribution Width 13.5 % (11.0-16.0); White Blood Count 4.3 X10*3/uL (4.8-10.8)
[2021-09-28 14:11] LABS: Prothrombin Time 11.5 SEC (9.9-13.0)
[2021-09-28 14:19] LABS: Alanine Aminotransferase 9 U/L (0-31); Albumin Level 4.2 g/dL (3.5-5.0); Alkaline Phosphatase 95 U/L (39-117); Anion Gap 13 (12-20); Aspartate Amino Transferase 17 U/L (5-31); Bilirubin Direct 0.2 mg/dL (0.0-0.5); Bilirubin Total 0.4 mg/dL (0.0-1.0); Blood Urea Nitrogen 15 mg/dL (9-16); Calcium 9.8 mg/dL (8.4-10.2); Carbon Dioxide 31 mmol/L (22-29); Chloride 103 mmol/L (96-108); Creatinine Clr Calc Pharmacy 62.1; Estimated Glomerular Filt Rate > 60; Glucose Random 98 mg/dL (60-115); Potassium 5.3 mmol/L (3.3-5.1); Sodium 142 mmol/L (135-145); Total Protein 7.4 g/dL (6.5-8.0)
[2021-09-28] MEDS: ondansetron HCL 4 MG/2 ML VIAL IVPUSH (14:35)
[2021-09-28] MEDS: iohexoL 350 MG/ML 100 ML INFUS..BTL IV (15:03)
[2021-09-28 15:55] VITALS: BP 158/100; PULSE 95; RESP 20; TEMP 36.6; O2SAT 95
== END 2021-09-28 18:16 | disposition home or self-care (01) ==
PROVIDERS: Nurse Practitioner Family; Emergency Provider Emergency Medicine; PCP Physician Assistant
DX: K59.00 Constipation, unspecified (principal); K62.5 Hemorrhage of anus and rectum; Z87.891 Personal history of nicotine dependence; Z79.899 Other long term (current) drug therapy
CPT/HCPCS: 36415; 74018; 74178; 80048; 80076; 82272; 85025; 85610; 96374; 99284; J2405; Q9967

== ENCOUNTER 2021-10-07 14:21 | Outpatient (REF) | payer MEDICARE, OTHER, SELFPAY ==
[2021-10-07 16:42] LABS: Influenza A PCR NEGATIVE (Negative); Influenza B PCR NEGATIVE (Negative); Resp Syncy Virus RNA Qual PCR NEGATIVE (Negative); SARS COV2 PCR INHOUSE NEGATIVE (Negative)
== END 2021-10-07 14:22 | disposition home or self-care (01) ==
LOC: HO.LAB 14:21
PROVIDERS: PCP Physician Assistant; Visit Provider Nurse Practitioner Family
DX: Z20.822 Contact with and (suspected) exposure to COVID-19 (principal); J31.0 Chronic rhinitis
CPT/HCPCS: 0241U

== ENCOUNTER 2021-10-22 12:09 | Outpatient (REF) | payer MEDICARE, OTHER, SELFPAY ==
[2021-10-22 12:31] LABS: COVID-19 Test Negative (Negative); IDNOW Serial# 16C4AD1C
== END 2021-10-22 12:10 | disposition home or self-care (01) ==
LOC: HO.LAB 12:09
PROVIDERS: PCP Physician Assistant; Visit Provider Internal Medicine
DX: Z20.822 Contact with and (suspected) exposure to COVID-19 (principal)
CPT/HCPCS: 87635; C9803

== ENCOUNTER 2021-10-25 18:48 | Emergency (ER) | payer MEDICARE, OTHER, SELFPAY ==
[2021-10-25 20:15] VITALS: BP 176/107; PULSE 100; RESP 18; TEMP 36.6; O2SAT 98; BMI 29.2
[2021-10-25 21:58] LABS: Hemoglobin 12.2 g/dl (12.0-16.0); PLT CLUMP 1
[2021-10-25 21:59] LABS: Hematocrit 37.7 % (37.0-47.0); Mean Corpuscular HGB Conc 32.4 g/dl (31.0-35.0); Mean Corpuscular Volume 92.6 fL (80.0-98.0); Mean Platelet Volume 11.7 fL (9.4-12.3); Red Blood Count 4.07 X10*6/uL (4.20-5.50); Red Cell Distribution Width 13.2 % (11.0-16.0)
[2021-10-25 22:15] LABS: Anion Gap 12 (12-20); Blood Urea Nitrogen 16 mg/dL (9-16); Calcium 10.4 mg/dL (8.4-10.2); Carbon Dioxide 32 mmol/L (22-29); Chloride 102 mmol/L (96-108); Creatinine Clr Calc Pharmacy 62.5; Estimated Glomerular Filt Rate > 60; Glucose Random 90 mg/dL (60-115); Platelet Count 120 X10*3/uL (160-400); Sodium 141 mmol/L (135-145)
[2021-10-25 22:28] LABS: COVID-19 Test Negative (Negative)
--- NOTE | 2021-10-26 | ECG_ITS ---
Test Reason : CP Blood Pressure : / mmHG Vent. Rate : 094 BPM Atrial Rate : 094 BPM P-R Int : 224 ms QRS Dur : 082 ms QT Int : 366 ms P-R-T Axes : 062 005 037 degrees QTc Int : 457 ms Sinus rhythm with 1st degree A-V block Otherwise normal ECG When compared with ECG of 16-AUG-2021 14:35, AK interval has increased Referred By: Declan Combs Electronically Signed By:WILBUR MCFARLAND
--- NOTE | 2021-10-26 00:23 | ED.GENADULT ---
HPI - General Adult General Chief complaint: General Medical Stated complaint: high blood pressure Time Seen by Provider: 10/26/21 00:23 Source: patient Mode of arrival: ambulatory Limitations: no limitations History of Present Illness HPI narrative: Patient history of anxiety and severe aortic stenosis last echo in 07/25 showed area of 1.14 cm2 been managed medically patient did have hypertension was given lisinopril 2.5 mg but blood pressure remained normal so patient stopped taking medication today patient had mild headache with anxiety check her blood pressure was elevated on arrival it was 176/107 patient did take lisinopril 2.5 mg at home prior to arrival with no response no chest pain or palpitation , no shortness of breath, patient been very anxious Related Data Home Medications Medication Instructions Recorded Confirmed omeprazole 20 mg capsule,delayed 20 mg PO DAILY PRN 08/07/20 10/12/21 release fluticasone propionate 50 1 spray INTRANASAL BID 06/11/21 10/12/21 mcg/actuation nasal spray,suspension acetaminophen 325 mg tablet 325 mg PO QID PRN 06/21/21 10/12/21 fexofenadine 180 mg tablet 180 mg PO DAILY 06/21/21 10/12/21 lisinopril 5 mg tablet 2.5 mg PO DAILY tab 09/18/21 10/12/21 desvenlafaxine succinate 50 mg 50 mg PO DAILY 10/12/21 10/12/21 tablet,extended release 24 hr Previous Rx's Medication Instructions Recorded alprazolam 0.25 mg tablet 0.25 mg PO TID 30 Days #90 tab 07/22/21 diclofenac sodium 1 % topical gel 2 g TOPICAL QID PRN #100 g 08/10/21 (Arthritis Pain (diclofenac)) ondansetron HCl 4 mg tablet 4 mg PO Q8H PRN #14 tab 08/16/21 (Zofran) cyanocobalamin (vitamin B-12) 1,000 mcg PO DAILY #60 tab 08/17/21 1,000 mcg tablet,extended release (Vitamin B-12 ER) bisacodyl 10 mg/30 mL enema (Fleet 10 mg (30 mL) NM DAILY 1 Days #30 10/12/21 Bisacodyl) ml Allergies Allergy/AdvReac Type Severity Reaction Status Date / Time Sulfa (Sulfonamide Allergy Intermediate RASH Verified 10/25/21 20:14 Antibiotics) amoxicillin [From AUGMENTIN] Allergy Unknown PER H&P Verified 10/25/21 20:14 clavulanic acid Allergy Unknown PER H&P Verified 10/25/21 20:14 [From AUGMENTIN] garlic [GARLIC] Allergy Unknown PER H&P Verified 10/25/21 20:14 metronidazole [From FLAGYL] Allergy Unknown OCULAR Verified 10/25/21 20:14 MIGRAINES penicillamine Allergy Unknown Unknown Verified 10/25/21 20:14 environmental Allergy Unknown Unknown Uncoded 10/07/21 11:59 flagyl Allergy Unknown Unknown Uncoded 10/07/21 11:59 From KEFLEX Allergy Unknown RASH Uncoded 10/07/21 11:59 Metoprolol Tartrate Allergy Unknown Unknown Uncoded 10/07/21 11:59 Sulfacet-R Allergy Unknown Unknown Uncoded 10/07/21 11:59 Review of Systems Review of Systems: Yes all other systems are reviewed and are negative PMF Past Medical History Medical History Anxiety Diverticulitis GERD (gastroesophageal reflux disease) Heart murmur Irritable bowel Surgical History History of appendectomy History of tonsillectomy Family History Family History Father No problems noted. Mother No problems noted. Social History Social History Housing: House Alcohol intake: never Patient Tobacco Use Status: Former Tobacco user e-Cigarette/Vaping Use: Never Used Second Hand Smoke Exposure: No Advance Directives: No service: No Current occupational status: retired Cognitive needs: No Hearing needs: No Vision needs: Yes (glasses) Physical Exam ED Vital Signs: Vital Signs - 24 hr 10/25/21 20:15 10/26/21 00:27 10/26/21 00:29 Temperature 97.8 F 97.9 F Pulse Rate 100 99 Respiratory Rate 18 18 Blood Pressure 176/107 H 186/109 H 173/102 H Pulse Oximetry 98 99 BMI result Body Mass Index 29.2 Appearance: Alert. Oriented X3. No acute distress. Anxious ENT: Pharynx normal. Oral Mucosa moist Neck: Normal inspection. Neck supple. CVS: Normal heart rate and rhythm. Pulses normal. Systolic ejection murmur at the base Respiratory: No respiratory distress. Equal air entry bilateral, no wheezing/rales/rhonchi Abdomen: Soft and nontender. Bowel sounds are present, Skin: Skin warm and dry. Normal skin color. Normal skin turgor. Extremities: No lower extremity edema. No calf tenderness Neuro: Oriented X 3. No motor deficit. Medical Decision Making MDM Narrative Medical decision making narrative: Patient with hypertension with critical aortic stenosis used to be on medication before which was stopped will restart JAVIER-inhibitor lisinopril with as in the past 5 mg daily. 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 Lab Data Result diagrams: 10/25/21 21:49 10/25/21 21:49 Labs: Lab Results 10/25/21 10/25/21 10/25/21 Range/Units 21:49 21:49 21:49 WBC 5.0 (4.8-10.8) X10*3/uL RBC 4.07 L (4.20-5.50) X10*6/uL Hgb 12.2 (12.0-16.0) g/dl Hct 37.7 (37.0-47.0) % MCV 92.6 (80.0-98.0) fL MCH 30.0 (27.0-33.0) pg MCHC 32.4 (31.0-35.0) g/dl RDW 13.2 (11.0-16.0) % Plt Count 120 L (160-400) X10*3/uL MPV 11.7 (9.4-12.3) fL Absolute Nucleated RBC 0.000 (0.0-0.012) X10*3/uL Nucleated RBC % (auto) 0.0 (0.0-0.2) /100WBC Sodium 141 (135-145) mmol/L Potassium 5.0 (3.3-5.1) mmol/L Chloride 102 (96-108) mmol/L Carbon Dioxide 32 H (22-29) mmol/L Anion Gap 12 (12-20) BUN 16 (9-16) mg/dL Creatinine 0.79 (0.5-1.4) mg/dL Estim Creat Clear Calc 62.5 Estimated GFR > 60 Random Glucose 90 (60-115) mg/dL Calcium 10.4 H D (8.4-10.2) mg/dL COVID-19 (MANDI) Negative (Negative) COVID-19 Clin Com See Note ECG Data Attestation: I personally reviewed and interpreted this ECG as follows: Interpretation: Normal sinus rhythm heart rate 94 beats per minute first-degree heart block no acute STT wave changes no acute ischemia Discharge Plan Discharge Clinical Impression: Essential hypertension, Aortic stenosis Patient Disposition: Home, Self-Care Instructions: Aortic Stenosis (ED), Chronic Hypertension (DC) Additional Instructions: Continue medication for anxiety And restart taking lisinopril 5 mg daily and 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 Prescriptions: No Action acetaminophen 325 mg Tablet 325 mg PO QID PRN (Reason: Pain) 0RF fexofenadine [[place]] 180 mg Tablet 180 mg PO DAILY 0RF ondansetron HCl [Zofran] 4 mg tablet 4 mg PO Q8H PRN (Reason: nausea and vomiting) Qty: 14 0RF cyanocobalamin (vitamin B-12) [Vitamin B-12] 1,000 mcg Tablet Extended Release 1,000 mcg PO DAILY Qty: 60 3RF desvenlafaxine succinate 50 mg tablet extended release 24 hr 50 mg PO DAILY 0RF Fleet Bisacodyl 10 mg/30 mL enema 10 mg NM DAILY 1 Days Qty: 30 0RF alprazolam 0.25 mg tablet 0.25 mg PO TID 30 Days Qty: 90 1RF diclofenac sodium [Arthritis Pain (diclofenac)] 1 % gel 2 g topical QID PRN (Reason: pain) Qty: 100 0RF Rx Instructions: apply to single elbow, wrist or hand; for hand includes palm/fingers/back of hand lisinopril 5 mg tablet 2.5 mg PO DAILY 0RF omeprazole 20 mg capsule,delayed release(DR/EC) 20 mg PO DAILY PRN (Reason: gi upset) 0RF fluticasone propionate 50 mcg/actuation spray,suspension 1 spray intranasal BID 0RF
[2021-10-26 00:27] VITALS: BP 186/109; PULSE 99; RESP 18; TEMP 36.6; O2SAT 99
[2021-10-26 00:29] VITALS: BP 173/102
[2021-10-26] MEDS: LORazepam 0.5 MG TABLET PO (01:10)
[2021-10-26] MEDS: lisinopriL 5 MG TABLET PO (01:10)
[2021-10-26 01:52] VITALS: BP 175/100; PULSE 94; RESP 18; TEMP 36.9; O2SAT 99
== END 2021-10-26 02:22 | disposition home or self-care (01) ==
PROVIDERS: Emergency Provider Internal Medicine; PCP Physician Assistant
DX: I10 Essential (primary) hypertension (principal); I35.0 Nonrheumatic aortic (valve) stenosis; Z20.822 Contact with and (suspected) exposure to COVID-19; F41.9 Anxiety disorder, unspecified
CPT/HCPCS: 80048; 85027; 87635; 93005; 99283; 99284

== ENCOUNTER 2021-11-04 11:31 | Outpatient (REF) | payer MEDICARE, OTHER, SELFPAY ==
[2021-11-04 13:44] LABS: Hematocrit 35.3 % (37.0-47.0); Hemoglobin 11.3 g/dl (12.0-16.0); Mean Corpuscular Hemoglobin 30.1 pg (27.0-33.0); Mean Corpuscular Volume 93.9 fL (80.0-98.0); Mean Platelet Volume 12.6 fL (9.4-12.3); Platelet Count 127 X10*3/uL (160-400); Red Blood Count 3.76 X10*6/uL (4.20-5.50); Red Cell Distribution Width 13.3 % (11.0-16.0); White Blood Count 4.3 X10*3/uL (4.8-10.8)
[2021-11-04 14:01] LABS: Iron 80 mcg/dL (30-160); Percent Iron Saturation 25 % (15-50); Total Iron Binding Capacity 323 mcg/dL (228-428); Unsaturated Iron Binding 243 ug/dL
[2021-11-04 14:23] LABS: TSH reflex Free T4 0.78 uIU/mL (0.32-4.0)
[2021-11-04 14:31] LABS: B Type Natriuretic Peptide 108 pg/mL (<100)
== END 2021-11-04 11:32 | disposition home or self-care (01) ==
LOC: HO.10HDL 11:31
PROVIDERS: Visit Provider Physician Assistant
DX: R00.2 Palpitations (principal); D50.9 Iron deficiency anemia, unspecified
CPT/HCPCS: 36415; 83540; 83880; 84443; 85027

== ENCOUNTER → 2021-11-05 11:22 | Outpatient (REF) | payer MEDICARE, OTHER, SELFPAY ==
--- NOTE | 2021-11-05 11:27 | HM_ITS ---
* Total monitoring time 2 days and 21 hours. * Underlying rhythm is sinus. Average rate 91/Min. Range 73 to 121/Min. * No atrial fibrillation or flutter or AV blocks or pauses. * Rare supraventricular and ventricular ectopy with minimal burden. * Patient symptoms including lightheadedness, dizziness and near syncope not correlating with any clear arrhythmic events. MTDD
== END ==
LOC: HO.CARD 11:22
PROVIDERS: Visit Provider Physician Assistant
DX: R00.2 Palpitations (principal)
CPT/HCPCS: 93242

== ENCOUNTER 2021-11-10 09:51 | Outpatient (REF) | payer MEDICARE, OTHER, SELFPAY ==
[2021-11-11 11:03] LABS: BV Int Neg Control Negative (Negative); BV Int Pos Control Positive (Positive)
== END 2021-11-10 09:52 | disposition home or self-care (01) ==
LOC: HO.LAB 09:51
PROVIDERS: Visit Provider Advanced Practice Midwife
DX: N95.2 Postmenopausal atrophic vaginitis (principal); N89.8 Other specified noninflammatory disorders of vagina
CPT/HCPCS: 87480; 87510; 87660; 99212

== ENCOUNTER 2021-11-22 13:54 | Outpatient (RCR) | payer MEDICARE, OTHER, SELFPAY ==
--- NOTE | 2021-11-22 15:31 | MHC.PT.EP ---
[facility] [place] Office [place] Office [place] Office [address] Bernardino Torres [address] [phone] F: [phone] F: [phone] F: [phone] F: [phone] Physical Therapy Plan of Care Date of Evaluation: Date of Surgery: NA Diagnosis: Constipation Assessment: Bella is a 81 year old female who is referred to PT for constipation, pelvic floor therapy . 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 On PT examination she presented with decreased strength of B LE, positive ASLR on L side, impaired posture and load transfer. Internal vaginal and rectal assessment not done today due to lack of time. To be done in next session. She would benefit from skilled PT to address the aforementioned impairment and improve tolerance to functional activities. Frequency and Duration: The patient will be seen 1/week for 10 weeks Short Term Goals: 1. Internal pelvic exam will be performed in 1 week 2. Pt will be able to state at least 3 urge deferral techniques in 3 weeks. 3. Pt will have no leakage early mornings in 5 weeks Prison Goals: 1. Pt will demonstrate an improvement in stool consistency and will not have to strain to perform a BM in 6 weeks. 2. Pt will be able to manage urgency symptoms and limit urination frequency to 8/day during periods of increased anxiety in 8 weeks 3. Pt will be independent with [facility] for symptom management and maintenance following d/c in 10 weeks Treatment Plan: Modalities to reduce pain, spasms and effusion. Manual therapy to restore motion and function. Therapeutic exercise to improve strength and flexibility. Neuromuscular re-education for posture and balance. Therapeutic activities to return to functional activities of daily living. Electronically signed by: Please sign and return to therapist. Thank you for your referral.
--- NOTE | 2022-01-19 13:10 | MHC.PT.DC ---
[facility] [place] Office [place] Office [place] Office [address] Bernardino Torres 140 [facility] [phone] F: [phone] F: [phone] F: [phone] F: [phone] Physical Therapy Discharge Report Diagnosis: Constipation Date of Surgery: NA Date of Evaluation: 11/22/21 Date of Discharge: 01/19/22 Treatments to Date: 1 Cancellations to Date: 0 No Shows to Date: 0 Discharge Status: Patient Elected to Stop Discharge Summary: Bella did not return to therapy after evaluation due to personal issues/ other health problem. She is therefore being d/c from PT. Electronically signed by: Connie Powell PT DPT Please sign and return to therapist. Thank you for your referral.
== END 2022-01-19 13:10 | disposition home or self-care (01) ==
LOC: HO.PT 13:54
PROVIDERS: PCP Physician Assistant; Visit Provider Physician Assistant
DX: K59.00 Constipation, unspecified (principal)
CPT/HCPCS: 97112; 97161

== ENCOUNTER 2021-11-24 14:16 | Outpatient (REF) | payer MEDICARE, OTHER, SELFPAY ==
--- NOTE | ~2021-11-24 | XR_ITS ---
EXAMINATION:XR cervical spine 3V CLINICAL INFORMATION: Radiculopathic COMPARISON: Prior study 03/09/2019 TECHNIQUE: 3 views of the cervical spine were obtained. Frontal lateral and open-mouth odontoid view FINDINGS: 7 cervical vertebrae identified maintaining normal height and alignments.. Narrowing of intervertebral disc spaces at all levels, C2-C3 through C7-T1 suggests underlying mild to moderate degenerative disc disease. No prevertebral soft tissue swelling. Surrounding soft tissue and included lung apices are clear. Included lung apices are clear. XR/XR cervical spine 3V IMPRESSION: *Mild narrowing of intervertebral disc spaces suggest underlying degenerative disc disease. *There has been no significant change. *No fracture.
[2021-11-24 17:02] LABS: Vitamin B12 347 pg/mL (200-900)
== END 2021-11-24 14:17 | disposition home or self-care (01) ==
LOC: HO.HMGCX 14:16
PROVIDERS: PCP Physician Assistant; Visit Provider Physician Assistant
DX: M47.812 Spondylosis without myelopathy or radiculopathy, cervical region (principal); E53.8 Deficiency of other specified B group vitamins
CPT/HCPCS: 36415; 72040; 82607

== ENCOUNTER 2021-12-02 15:40 | Emergency (ER) | payer MEDICARE, OTHER, SELFPAY | END 2021-12-02 15:43 | PROVIDERS: PCP Physician Assistant | DX: M79.661 Pain in right lower leg (principal); M79.605 Pain in left leg; M79.604 Pain in right leg ==

== ENCOUNTER 2021-12-03 11:02 | Outpatient (REF) | payer MEDICARE, OTHER, SELFPAY ==
--- NOTE | ~2021-12-03 | US_ITS ---
EXAMINATION: US VENOUS ULTRASOUND WITH DOPPLER LOWER EXTREMITY, LEFT CLINICAL INFORMATION: Acute onset of left calf pain and swelling. COMPARISON: None TECHNIQUE: Ultrasound of the deep veins is performed from the hip to the calf with compression sonography and color and pulse Doppler assessment. Spectral analysis with color-flow imaging is performed. FINDINGS: There is normal venous compression and respiratory variation and augmented flow. The visualized common femoral vein, superficial femoral vein, profunda femoral vein, popliteal vein, and the trifurcation region shows no evidence of deep venous thrombosis. There is no significant popliteal fossa cyst. If the patient's symptoms persist, followup ultrasound in 5 days 7 days might be of value to exclude proximal propagation from a non-visualized calf vein. US/US venous duplex LE LT IMPRESSION: No DVT demonstrated in the left lower extremity.
== END 2021-12-03 11:03 | disposition home or self-care (01) ==
LOC: HO.US 11:02
PROVIDERS: PCP Physician Assistant; Visit Provider Physician Assistant Medical
DX: R60.0 Localized edema (principal); M79.89 Other specified soft tissue disorders; M79.662 Pain in left lower leg
CPT/HCPCS: 93971

== ENCOUNTER 2021-12-18 12:59 | Outpatient (REF) | payer MEDICARE, OTHER, SELFPAY ==
[2021-12-18 13:24] LABS: Appearance Urine HAZY; Color Urine YELLOW; Glucose Urine UA NEG (NEG); Leukocyte Esterase Urine NEG (NEG); Nitrite Urine NEG (NEG); Specific Gravity - Urine >= 1.030 (1.005-1.025); UACC Culture Trigger NO; Urine Blood 1+ (NEG); Urine Ketones NEG (NEG); Urine Protein NEG (NEG-TRACE)
[2021-12-18 13:42] LABS: Bacteria Urine TRACE /LPF; Calcium Oxalate Crystals Urine TRACE /LPF; Hyaline Casts Urine 0-2 /LPF; Renal Epithelial Cells Urine 2+ /LPF; Squamous Epithelial Cell Urine 1+ /LPF
== END 2021-12-18 13:00 | disposition home or self-care (01) ==
LOC: HO.LNP 12:59
PROVIDERS: Visit Provider Physician Assistant Medical
DX: R30.0 Dysuria (principal)
CPT/HCPCS: 81001

== ENCOUNTER 2021-12-22 10:41 | Outpatient (REF) | payer MEDICARE, OTHER, SELFPAY ==
[2021-12-22 12:01] LABS: Appearance Urine CLEAR; Color Urine YELLOW; Glucose Urine UA NEG (NEG); Leukocyte Esterase Urine NEG (NEG); Nitrite Urine NEG (NEG); Urine Blood NEG (NEG); Urine Ketones NEG (NEG); Urine Protein NEG (NEG-TRACE)
== END 2021-12-22 10:42 | disposition home or self-care (01) ==
LOC: HO.LAB 10:41
PROVIDERS: PCP Physician Assistant; Visit Provider Physician Assistant
DX: R30.0 Dysuria (principal)
CPT/HCPCS: 81003

== ENCOUNTER 2021-12-23 09:25 | Outpatient (REF) | payer MEDICARE, OTHER, SELFPAY ==
[2021-12-23 11:15] LABS: MANUAL DIFF FLAG NO
[2021-12-23 11:22] LABS: Basophils Percent Auto 0.5 % (0-2); Eosinophils Absolute Auto 0.1 X10*3/uL (0.0-0.4); Hematocrit 35.7 % (37.0-47.0); Hemoglobin 11.5 g/dl (12.0-16.0); Imm Gran Abs Auto 0.01 X10*3/uL (0.00-0.03); Imm Gran Pct Auto 0.2 % (0.0-0.4); Lymphocytes Absolute Auto 0.9 X10*3/uL (1.2-4.9); Lymphocytes Percent Auto 21.7 % (20-40); Mean Corpuscular HGB Conc 32.2 g/dl (31.0-35.0); Mean Corpuscular Hemoglobin 29.9 pg (27.0-33.0); Mean Corpuscular Volume 92.7 fL (80.0-98.0); Mean Platelet Volume 12.4 fL (9.4-12.3); Monocytes Absolute Auto 0.2 X10*3/uL (0.1-1.2); Monocytes Percent Auto 5.9 % (2-11); Neutrophils Absolute Auto 2.8 x10*3/uL (2.0-8.3); Neutrophils Percent Auto 69.7 % (45-73); Platelet Count 106 X10*3/uL (160-400); Red Blood Count 3.85 X10*6/uL (4.20-5.50); Red Cell Distribution Width 13.2 % (11.0-16.0); White Blood Count 4.1 X10*3/uL (4.8-10.8)
[2021-12-23 11:39] LABS: Alanine Aminotransferase 9 U/L (0-31); Albumin Level 4.1 g/dL (3.5-5.0); Alkaline Phosphatase 94 U/L (39-117); Anion Gap 10 (12-20); Aspartate Amino Transferase 17 U/L (5-31); Bilirubin Total 0.7 mg/dL (0.0-1.0); Blood Urea Nitrogen 15 mg/dL (9-16); Calcium 9.5 mg/dL (8.4-10.2); Carbon Dioxide 31 mmol/L (22-29); Chloride 102 mmol/L (96-108); Estimated Glomerular Filt Rate > 60; Glucose Random 89 mg/dL (60-115); Lipase 16 U/L (8-78); Potassium 4.5 mmol/L (3.3-5.1); Sodium 138 mmol/L (135-145); Total Protein 6.9 g/dL (6.5-8.0)
== END 2021-12-23 09:26 | disposition home or self-care (01) ==
LOC: HO.HMGCLDS 09:25
PROVIDERS: Visit Provider Nurse Practitioner Family
DX: I10 Essential (primary) hypertension (principal); R10.32 Left lower quadrant pain; R11.0 Nausea
CPT/HCPCS: 36415; 80053; 83690; 85025

== ENCOUNTER 2021-12-27 10:32 | Outpatient (REF) | payer MEDICARE, OTHER, SELFPAY ==
--- NOTE | ~2021-12-27 | XR_ITS ---
EXAMINATION: XR ABDOMEN KUB CLINICAL INDICATION: Left lower quadrant pain COMPARISON: None TECHNIQUE: AP view of the abdomen. FINDINGS: There is a moderate amount of stool the colon suggestive of constipation. There is no evidence of obstruction or free air. There is atherosclerotic disease. No suspicious calcifications are seen. There are degenerative changes of the lower lumbar spine. XR/XR KUB IMPRESSION: Constipation.
== END 2021-12-27 10:33 | disposition home or self-care (01) ==
LOC: HO.XRAY 10:32
PROVIDERS: PCP Physician Assistant; Visit Provider Nurse Practitioner Family
DX: R10.32 Left lower quadrant pain (principal)
CPT/HCPCS: 74018

== ENCOUNTER 2021-12-31 12:16 | Outpatient (REF) | payer MEDICARE, OTHER, SELFPAY ==
[2021-12-31 14:21] LABS: Leukocytes Stool Qualitative FEW: < 2/OIF (NEGATIVE)
== END 2021-12-31 12:17 | disposition home or self-care (01) ==
LOC: HO.HMGCLNP 12:16
PROVIDERS: Visit Provider Physician Assistant
DX: R19.5 Other fecal abnormalities (principal)
CPT/HCPCS: 87045; 87046; 89055

== ENCOUNTER 2022-01-03 10:58 | Emergency (ER) | payer MEDICARE, OTHER, SELFPAY ==
--- NOTE | ~2022-01-03 | CT_ITS ---
EXAMINATION: CT HEAD WITHOUT CONTRAST CLINICAL INFORMATION: Headache. Worse finding difficulty. COMPARISON: No relevant prior imaging. TECHNIQUE: Contiguous axial imaging was performed from the skull base to vertex without intravenous administration of contrast. This CT examination was performed using dose optimization techniques as appropriate, variously including the following: *Automated exposure control *Adjustment of mA and/or kV according to patient size (this includes techniques or standardized protocols for targeted exams where dose is matched to indication/reason for exam; i.e. extremities or head) *Use of iterative reconstruction technique DLP: 703 mGy-cm FINDINGS: There are well marginated lucencies located within the putamen that might either represent perivascular spaces or chronic lacunar infarcts. There is also relatively confluent hypoattenuation visualized throughout the periventricular white matter most likely represent a chronic manifestation of small vessel ischemia. Curiel-white matter differentiation is otherwise preserved and there is no evidence of acute territorial infarct. There is prominence of the ventricular volumes and relative effacement of the subarachnoid spaces particularly near the vertex and there is narrowing of the callosal angle which may indicate the presence of normal pressure hydrocephalus. There is no acute hemorrhage or abnormal extra-axial collection. The calvarium and skull base are intact. Mastoid air cells and middle ear cavities are well-aerated. No active paranasal sinus disease. CT/CT head/brain wo con IMPRESSION: Grossly no evidence of acute territorial infarct or hemorrhage. There are chronic small vessel ischemic changes throughout the periventricular white matter and a few well marginated lucencies located within the putamen that may either represent perivascular spaces or chronic lacunar infarcts. Anatomic features indicate the possibility of underlying normal pressure hydrocephalus as described above.
--- NOTE | ~2022-01-03 | MR_ITS ---
EXAMINATION: MRI BRAIN WITHOUT CONTRAST CLINICAL INFORMATION: Dysarthria onset 8:30 AM. Left middle cerebral artery lesion. COMPARISON: CT angiogram of the head and neck 01/03/2022. TECHNIQUE: Multiplanar MR imaging of the brain was performed without contrast. FINDINGS: There are numerous foci of T2 FLAIR signal hyperintensity involving the periventricular white matter, basal ganglia, thalami, and jasmyn that most likely represent a chronic manifestation of small vessel ischemia. There are prominent perivascular spaces visualized within the basal ganglia. No acute territorial infarct. No pathological magnetic susceptibility artifact. Intracranial vascular flow voids are grossly maintained. There is no intracranial mass effect or midline shift. No abnormal extra-axial collection. Lateral and third ventricles are prominent and there is relative effacement of the sulcal spaces particularly near the vertex. Coronal images demonstrate narrowing of the callosal angle. Midline structures including the cervicomedullary junction are normal. No acute bone marrow signal changes. There is no mastoid or middle ear effusion. Trace fluid within the left maxillary sinus. MR/MR head/brain wo con IMPRESSION: There are numerous chronic small vessel ischemic changes involving the periventricular white matter, basal ganglia, thalami, and jasmyn. No evidence of acute territorial infarct or hemorrhage. Of note there are multiple anatomic features indicating the possibility of underlying normal pressure hydrocephalus.
--- NOTE | ~2022-01-03 | CT_ITS ---
CT ANGIOGRAM NECK WITH CONTRAST CT ANGIOGRAM BRAIN WITH CONTRAST CLINICAL INFORMATION: Expressive aphasia. Headache. COMPARISON: Head CT performed earlier the same day. TECHNIQUE: Test bolus sequences followed by intravenous administration 70 mL of Omnipaque 350. Helical imaging was performed in the axial plane from the thoracic inlet to the skull vertex. Delayed postcontrast imaging of the head was also performed. The data was processed at the histologist technologist workstation for generation of MIP sequences. Angled MIPs and volume rendered reformatted images were also generated at an offline 3D workstation under concurrent supervision. Stenoses are assessed in accordance with NASCET criteria unless otherwise indicated. This CT examination was performed using dose optimization techniques as appropriate, variously including the following: *Automated exposure control *Adjustment of mA and/or kV according to patient size (this includes techniques or standardized protocols for targeted exams where dose is matched to indication/reason for exam; i.e. extremities or head) *Use of iterative reconstruction technique FINDINGS: BRAIN: Severe lateral and third ventriculomegaly with an associated narrowed callosal angle that remains suggestive of normal pressure hydrocephalus in the appropriate clinical context. [There is no intracranial hemorrhage, extra-axial surface collection, midline shift, or other herniation pattern. Curiel to white matter differentiation is diffusely maintained without evidence of an evolved acute territorial infarct. The basilar cisterns are preserved. No significant soft tissue abnormality. No acute osseous abnormality. Mild mucosal thickening within the left maxillary sinus. CERVICAL SOFT TISSUES AND LUNG APICES: Centrilobular emphysema and biapical pleural parenchymal scarring. There is multilevel cervical spondylosis. A 2.4 cm nodule within the left thyroid lobe should be further assessed with thyroid ultrasound. NECK CTA: [There is a classic 3 vessel configuration of the aortic arch. Proximal arch vessels are non-stenotic. The vertebral arteries are codominant. No significant ostial stenosis is visualized on either side. Both vertebral arteries are widely patent throughout their extracranial cervical course. Both common carotid arteries are normal in course and caliber.] There is atherosclerotic calcification involving the carotid bifurcations bilaterally resulting in less than 50% stenoses of the proximal internal carotid arteries on both sides. BRAIN CTA: Atherosclerotic calcification results in a moderate stenosis of the intradural left vertebral artery. There is atherosclerotic calcification throughout the carotid siphons bilaterally without significant stenosis. No acute arterial occlusions intracranially. 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 Superficial and deep venous systems appear widely patent on the delayed postcontrast series. CT/CT angio head neck IMPRESSION: - No acute territorial infarcts. If focal neurologic deficit persists, MRI would be more sensitive in assessment. - Severe lateral and third ventriculomegaly with an associated narrowed callosal angle that remains suggestive of normal pressure hydrocephalus in the appropriate clinical context. Periventricular hypoattenuation and part reflect transependymal CSF effusion. 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 Findings remain similar to studies dated back to 02/27/2017. 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 - There is atherosclerotic calcification involving the carotid bifurcations bilaterally resulting in less than 50% stenoses of the proximal internal carotid arteries on both sides. - A 2.4 cm nodule within the left thyroid lobe should be further assessed with thyroid ultrasound.
[2022-01-03 11:29] VITALS: BP 186/105; BP 186/85; PULSE 92; PULSE 98; RESP 16; TEMP 36.7; O2SAT 97; O2SAT 99; BMI 31.5
[2022-01-03 11:45] VITALS: PULSE 96
[2022-01-03 12:06] VITALS: BP 162/97; PULSE 95; RESP 14; TEMP 36.7; O2SAT 95
[2022-01-03] MEDS: ALPRAZolam 0.25 MG TABLET PO (13:26)
--- NOTE | 2022-01-03 13:31 | ED_ITS ---
HPI - General Adult General Chief complaint: Altered Mental Status <Thao Nation CNP - Last Filed: 01/03/22 17:03> Stated complaint: HEADACHE <Thao Nation CNP - Last Filed: 01/03/22 17:03> Time Seen by Provider: 01/03/22 12:53 <Thao NationLIZZIE - Last Filed: 01/03/22 17:03> Source: patient <Thao Nation CNP - Last Filed: 01/03/22 17:03> Mode of arrival: EMS <Thao Nation CNP - Last Filed: 01/03/22 17:03> Limitations: no limitations <Thao Nation NEUROLOGY EPILEPSY PHYSICIAN - Last Filed: 01/03/22 17:03> History of Present Illness HPI narrative: Patient presents to the emergency department after an episode at 09:00 this morning were when she was reading something she felt as though the words were not making sense, she was having difficulty understanding. Her son is present at bedside who reports that while she was reading she would skip forward a few words and then jumbled over, not reading them in synchrony. He states that she was having word-finding difficulty. Patient was able to answer all questions appropriately during examination, and a few instances she will pause and say ?I just can not think of that were?. She reports a ?mild? headache above her left eye, and feeling anxious at this time. She feels that her headache may be related to her anxiety, and typically at home with take her alpr azolam for this. 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 She otherwise denies dizziness, lightheadedness, changes in her vision, neck pain, neck stiffness, chest pain, shortness of breath, difficulty breathing cough, nausea, vomiting, abdominal pain, dysuria, urinary frequency, bowel or bladder dysfunction, back pain, numbness or tingling of the extremities, generalized weakness, unsteady gait, pedal edema. <Thao NationLIZZIE - Last Filed: 01/03/22 17:03> Related Data Home medications: Home Medications Medication Instructions Recorded Confirmed omeprazole 20 mg capsule,delayed 20 mg PO DAILY PRN 08/07/20 11/24/21 release acetaminophen 325 mg tablet 325 mg PO QID PRN 06/21/21 11/24/21 ammonium lactate 12 % topical cream appl TOPICAL 11/24/21 11/24/21 Previous Rx's Medication Instructions Recorded alprazolam 0.25 mg tablet 0.25 mg PO TID 30 Days #90 tab 07/22/21 ondansetron HCl 4 mg tablet 4 mg PO Q8H PRN #14 tab 08/16/21 (Zofran) cyanocobalamin (vitamin B-12) 1,000 mcg PO DAILY #60 tab 08/17/21 1,000 mcg tablet,extended release (Vitamin B-12 ER) fluticasone propionate 50 1 spray INTRANASAL BID 30 Days #16 11/08/21 mcg/actuation nasal g spray,suspension valsartan 80 mg tablet 80 mg PO DAILY #30 tab 11/10/21 cyclobenzaprine 10 mg tablet 10 mg PO TID PRN #14 tab 12/03/21 phenazopyridine 100 mg tablet 100 mg PO TID PRN #7 tab 12/18/21 (Pyridium) doxycycline monohydrate 100 mg 100 mg PO BID 4 Days #8 cap 12/20/21 capsule aspirin 81 mg tablet,delayed 81 mg PO DAILY #30 tab 01/03/22 release (Adult Aspirin Regimen) <Thao Nation CNP - Last Filed: 01/03/22 17:03> Allergies/adverse reactions: Allergies Allergy/AdvReac Type Severity Reaction Status Date / Time Sulfa (Sulfonamide Allergy Intermediate RASH Verified 12/22/21 15:36 Antibiotics) amoxicillin [From AUGMENTIN] Allergy Unknown PER H&P Verified 12/22/21 15:36 clavulanic acid Allergy Unknown PER H&P Verified 12/22/21 15:36 [From AUGMENTIN] garlic [GARLIC] Allergy Unknown PER H&P Verified 12/22/21 15:36 metronidazole [From FLAGYL] Allergy Unknown OCULAR Verified 12/22/21 15:36 MIGRAINES penicillamine Allergy Unknown Unknown Verified 12/22/21 15:36 lisinopril AdvReac Intermediate Cough Verified 12/22/21 15:36 nitrofurantoin AdvReac Mild GI side Verified 12/22/21 15:36 effects environmental Allergy Unknown Unknown Uncoded 12/22/21 15:36 flagyl Allergy Unknown Unknown Uncoded 12/22/21 15:36 From KEFLEX Allergy Unknown RASH Uncoded 12/22/21 15:36 Metoprolol Tartrate Allergy Unknown Unknown Uncoded 12/22/21 15:36 Sulfacet-R Allergy Unknown Unknown Uncoded 12/22/21 15:36 <Thao Nation CNP - Last Filed: 01/03/22 17:03> Review of Systems Review of Systems: Constitutional : No Fever, No Chills, No Fatigue ENT/Mouth : No sore throat, No Rhinorrhea Eyes: No Eye Pain, No Swelling, No Redness Cardiovascular : No Chest Pain, No SOB, No Dyspnea on Exertion Respiratory : No Cough, No Sputum Gastrointestinal : No Nausea, No Vomiting, No Diarrhea, No abdominal Pain Genitourinary : No Dysuria, No Urinary Frequency, No Hematuria, Musculoskeletal : No joint pain, No Myalgias, No Joint Swelling Skin : No Skin Lesions, No rash Neuro : No Weakness, No Numbness, No Dizziness, positive Headache Psych : No Anxiety/Panic, No Depression Heme/Lymph: No Bruising, No Bleeding,No Lymphadenopathy Endocrine : No Polyuria, No Polydipsia <Thao Nation CNP - Last Filed: 01/03/22 17:03> Yes all other systems are reviewed and are negative <Thao Ntaion CNP - Last Filed: 01/03/22 17:03> [facility] Past Medical History Attestation statement: The following information was validated with the patient. <Thao Nation CNP - Last Filed: 01/03/22 17:03> Source: old records reviewed <Thao Nation CNP - Last Filed: 01/03/22 17:03> Medical History: Medical History Anxiety Diverticulitis GERD (gastroesophageal reflux disease) Heart murmur Irritable bowel <Thao Nation CNP - Last Filed: 01/03/22 17:03> Surgical History: Surgical History History of appendectomy History of tonsillectomy <Thao Nation CNP - Last Filed: 01/03/22 17:03> Family History Family History: Family History Father No problems noted. Mother No problems noted. <Thao Nation CNP - Last Filed: 01/03/22 17:03> Social History Social History: Social History Housing: House Alcohol intake: former Patient Tobacco Use Status: Former Tobacco user e-Cigarette/Vaping Use: Never Used Second Hand Smoke Exposure: No Use of substances other than those prescribed or required for medical reasons: No Advance Directives: No Advance Directives Information Provided: No service: No Current occupational status: retired Cognitive needs: No Hearing needs: No Vision needs: Yes (glasses) <Thao Nation CNP - Last Filed: 01/03/22 17:03> Physical Exam ED Vital Signs: Vital Signs - 24 hr 01/03/22 11:29 01/03/22 11:45 01/03/22 12:06 Temperature 98.1 F 98.0 F Pulse Rate 92 96 95 Respiratory Rate 16 14 Blood Pressure 186/85 H 162/97 H Pulse Oximetry 97 95 01/03/22 15:00 01/03/22 19:21 Temperature Pulse Rate 93 99 Respiratory Rate 16 18 Blood Pressure 145/104 H 115/71 Pulse Oximetry 97 95 BMI result Body Mass Index 31.5 Vital signs have been reviewed as normal and appeared to be correct. Hypertensive. Heart rate normal.? Respiration rate normal. Temperature normal.? Oxygen saturation normal. <Thao Nation CNP - Last Filed: 01/03/22 17:03> Vital Signs - 24 hr 01/03/22 11:29 01/03/22 11:45 01/03/22 12:06 Temperature 98.1 F 98.0 F Pulse Rate 92 96 95 Respiratory Rate 16 14 Blood Pressure 186/85 H 162/97 H Pulse Oximetry 97 95 01/03/22 15:00 01/03/22 19:21 Temperature Pulse Rate 93 99 Respiratory Rate 16 18 Blood Pressure 145/104 H 115/71 Pulse Oximetry 97 95 BMI result Body Mass Index 31.5 <Declan Combs MD - Last Filed: 01/03/22 19:59> Appearance: Alert.?Oriented to person, place and time. No acute distress.?Normal affect. Eyes: Pupils equal, round and reactive to light.?EOMi. No Nystagmus ENT: Pharynx normal.?? Neck: Normal inspection.? Neck supple.?? CVS: Heart sounds normal. Normal heart rate and rhythm.? Pulses normal.?? Respiratory: No respiratory distress.? Lung sounds clear to auscultation bilaterally?? Abdomen: Soft and non-tender. Normoactive bowel sounds. ?? Skin: Skin warm and dry.? Normal skin color.? Extremities: No lower extremity edema.? No calf ttp? Neuro: No focal neurological deficit observed, CN II-XII intact, normal sensory observed, normal coordination observed. Level of consciousness: Appropriate for age. Motor strength: Proximal right upper extremity 5 /5, distal right upper extremity 5 /5, proximal left upper extremity 5 /5, distal left upper extremity 5 /5, right lower extremity 5 /5, left lower extremity 5 /5.?Speech: Normal, Gait: Normal, [id number] test: Normal, [id number] test: Normal. <Thao Nation CNP - Last Filed: 01/03/22 17:03> Course Course Course Narrative: Patient is an 81-year-old female with a past medical history of anxiety, diverticulitis, GERD, heart murmur reportedly related to aortic stenosis. She presents emergency department today with concern about difficulty understanding paper that she was reading this morning at 09:00. Reports of a mild headache but feeling this is related to anxiety. NIH stroke score is 0. No focal neurological deficits. Conscious alert and oriented, speaking clear full s entences, answering all questions appropriately, able to identify simple common objects without problem. Given her current reports of anxiety, no medicate with home alprazolam 0.[address] without contrast to be obtained to exclude infarct, ICH, SAH though I have a low suspicion for this based on history and physical exam. Will obtain basic labs including CBC, CMP, COVID-19 testing, urinalysis. She is hypertensive today, but she reports being trialed on antihypertensives in the past which seem to ?make her blood pressure worse?. Disposition will be pending results. <Thao Nation CNP - Last Filed: 01/03/22 17:03> Reevaluation(s) Reevaluation #1: COVID-19 testing is negative. CBC is overall unremarkable. CMP is normal. Urinalysis without sign of infection. CT of the head is pending. No acute changes in patient condition at this time. <Thao NationLIZZIE - Last Filed: 01/03/22 17:03> Time: 14:23 <Thao NationLIZZIE - Last Filed: 01/03/22 17:03> Reevaluation #2: CT of the head reveals no evidence of acute territorial infarct or hemorrhage. Chronic small vessel ischemic changes throughout that may either represent perivascular spaces or chronic lacunar infarcts. Discussed case with ED attending Dr. Malin who agrees with plan of care to obtain CT angio head and neck, and consult neurology. Patient at this time continues to express concerns about word-finding difficulties. She continues to have NIH stroke score of 0. Able to identify objects such as a pen, glasses, paper. Odrdered Aspirin 162mg PO <Thao Blanco LIZZIE Nation - Last Filed: 01/03/22 17:03> Time: 14:55 <Thao Blanco FrancishumeraLIZZIE - Last Filed: 01/03/22 17:03> Reevaluation #3: Patient signed out to Dr. Combs pending MRI of the brain. Patient and her son were updated on plan of care. <Thao Lopezkwasi Nation CNP - Last Filed: 01/03/22 17:03> Time: 16:57 <Thao Bellakwasi Nation CNP - Last Filed: 01/03/22 17:03> Medical Decision Making [facility] Narrative Medical decision making narrative: Patient with transient expressive aphasia lasted for about an hour happen at 08:00 CT head negative CTA head and neck negative for LVO MRI also negative for any acute infarct. Patient does not have any neuro deficits during stay in the ER no speech problem while in the ER. Will start on baby aspirin platelet count 117K patient advised to follow with neurologist for further workup sinus rhythm on cardiac sonographer <Declan Combs MD - Last Filed: 01/03/22 19:59> Medical Records Medical records reviewed: Yes I reviewed the patient's medical records. <Thao Lopezkwasi Nation CNP - Last Filed: 01/03/22 17:03> Lab Data Lab results reviewed: Yes I reviewed the patient's lab results. <Thao Blanco LIZZIE Nation - Last Filed: 01/03/22 17:03> Result diagrams: : 01/03/22 13:34 01/03/22 13:34 <Thao Nation CNP - Last Filed: 01/03/22 17:03> Labs: Lab Results 01/03/22 01/03/22 01/03/22 Range/Units 13:34 13:34 13:34 WBC 5.9 (4.8-10.8) X10*3/uL RBC 4.17 L (4.20-5.50) X10*6/uL Hgb 12.3 (12.0-16.0) g/dl Hct 38.4 (37.0-47.0) % MCV 92.1 (80.0-98.0) fL MCH 29.5 (27.0-33.0) pg MCHC 32.0 (31.0-35.0) g/dl RDW 13.2 (11.0-16.0) % Plt Count 117 L (160-400) X10*3/uL MPV 12.3 (9.4-12.3) fL Immature Gran % (Auto) 0.7 H (0.0-0.4) % Neut % (Auto) 76.8 H (45-73) % Lymph % (Auto) 16.2 L (20-40) % [place] % (Auto) 4.9 (2-11) % Eos % (Auto) 0.9 (0-4) % Baso % (Auto) 0.5 (0-2) % Lymph # (Auto) 1.0 L (1.2-4.9) X10*3/uL [place] # (Auto) 0.3 (0.1-1.2) X10*3/uL Eos # (Auto) 0.1 (0.0-0.4) X10*3/uL Baso # (Auto) 0.0 (0.0-0.2) X10*3/uL Abs Immat Gran (auto) 0.04 H (0.00-0.03) X10*3/uL Absolute Neuts (auto) 4.5 (2.0-8.3) x10*3/uL Absolute Nucleated RBC 0.000 (0.0-0.012) X10*3/uL Nucleated RBC % (auto) 0.0 (0.0-0.2) /100WBC Sodium 139 (135-145) mmol/L Potassium 4.6 (3.3-5.1) mmol/L Chloride 103 (96-108) mmol/L Carbon Dioxide 28 (22-29) mmol/L Anion Gap 13 (12-20) BUN 15 (9-16) mg/dL Creatinine 0.78 (0.5-1.4) mg/dL Estim Creat Clear Calc 63.4 Estimated GFR > 60 Random Glucose 97 (60-115) mg/dL Calcium 9.8 (8.4-10.2) mg/dL Total Bilirubin 0.6 (0.0-1.0) mg/dL AST 20 (5-31) U/L ALT 10 (0-31) U/L Alkaline Phosphatase 112 (39-117) U/L Total Protein 7.5 (6.5-8.0) g/dL Albumin 4.3 (3.5-5.0) g/dL Urine Color Urine Appearance Urine pH (5.0-8.0) Ur Specific [place] (1.005-1.025) Urine Protein (NEG-TRACE) MG/DL Urine Glucose (UA) (NEG) MG/DL Urine Ketones (NEG) MG/DL Urine Blood (NEG) Urine Nitrite (NEG) Ur Leukocyte Esterase (NEG) COVID-19 (MANDI) Negative (Negative) COVID-19 Clin Com See Note 01/03/22 Range/Units 13:34 WBC (4.8-10.8) X10*3/uL RBC (4.20-5.50) X10*6/uL Hgb (12.0-16.0) g/dl Hct (37.0-47.0) % MCV (80.0-98.0) fL MCH (27.0-33.0) pg MCHC (31.0-35.0) g/dl RDW (11.0-16.0) % Plt Count (160-400) X10*3/uL MPV (9.4-12.3) fL Immature Gran % (Auto) (0.0-0.4) % Neut % (Auto) (45-73) % Lymph % (Auto) (20-40) % [place] % (Auto) (2-11) % Eos % (Auto) (0-4) % Baso % (Auto) (0-2) % Lymph # (Auto) (1.2-4.9) X10*3/uL [place] # (Auto) (0.1-1.2) X10*3/uL Eos # (Auto) (0.0-0.4) X10*3/uL Baso # (Auto) (0.0-0.2) X10*3/uL Abs Immat Gran (auto) (0.00-0.03) X10*3/uL Absolute Neuts (auto) (2.0-8.3) x10*3/uL Absolute Nucleated RBC (0.0-0.012) X10*3/uL Nucleated RBC % (auto) (0.0-0.2) /100WBC Sodium (135-145) mmol/L Potassium (3.3-5.1) mmol/L Chloride (96-108) mmol/L Carbon Dioxide (22-29) mmol/L Anion Gap (12-20) BUN (9-16) mg/dL Creatinine (0.5-1.4) mg/dL Estim Creat Clear Calc Estimated GFR Random Glucose (60-115) mg/dL Calcium (8.4-10.2) mg/dL Total Bilirubin (0.0-1.0) mg/dL AST (5-31) U/L ALT (0-31) U/L Alkaline Phosphatase (39-117) U/L Total Protein (6.5-8.0) g/dL Albumin (3.5-5.0) g/dL Urine Color YELLOW Urine Appearance HAZY Urine pH 7.0 (5.0-8.0) Ur Specific [place] 1.010 (1.005-1.025) Urine Protein NEG (NEG-TRACE) MG/DL Urine Glucose (UA) NEG (NEG) MG/DL Urine Ketones NEG (NEG) MG/DL Urine Blood NEG (NEG) Urine Nitrite NEG (NEG) Ur Leukocyte Esterase NEG (NEG) COVID-19 (MANDI) (Negative) COVID-19 Clin Com <Thao Blancohumera, NEUROLOGY EPILEPSY PHYSICIAN - Last Filed: 01/03/22 17:03> Lab Results 01/03/22 01/03/22 01/03/22 Range/Units 13:34 13:34 13:34 WBC 5.9 (4.8-10.8) X10*3/uL RBC 4.17 L (4.20-5.50) X10*6/uL Hgb 12.3 (12.0-16.0) g/dl Hct 38.4 (37.0-47.0) % MCV 92.1 (80.0-98.0) fL MCH 29.5 (27.0-33.0) pg MCHC 32.0 (31.0-35.0) g/dl RDW 13.2 (11.0-16.0) % Plt Count 117 L (160-400) X10*3/uL MPV 12.3 (9.4-12.3) fL Immature Gran % (Auto) 0.7 H (0.0-0.4) % Neut % (Auto) 76.8 H (45-73) % Lymph % (Auto) 16.2 L (20-40) % [place] % (Auto) 4.9 (2-11) % Eos % (Auto) 0.9 (0-4) % Baso % (Auto) 0.5 (0-2) % Lymph # (Auto) 1.0 L (1.2-4.9) X10*3/uL [place] # (Auto) 0.3 (0.1-1.2) X10*3/uL Eos # (Auto) 0.1 (0.0-0.4) X10*3/uL Baso # (Auto) 0.0 (0.0-0.2) X10*3/uL Abs Immat Gran (auto) 0.04 H (0.00-0.03) X10*3/uL Absolute Neuts (auto) 4.5 (2.0-8.3) x10*3/uL Absolute Nucleated RBC 0.000 (0.0-0.012) X10*3/uL Nucleated RBC % (auto) 0.0 (0.0-0.2) /100WBC Sodium 139 (135-145) mmol/L Potassium 4.6 (3.3-5.1) mmol/L Chloride 103 (96-108) mmol/L Carbon Dioxide 28 (22-29) mmol/L Anion Gap 13 (12-20) BUN 15 (9-16) mg/dL Creatinine 0.78 (0.5-1.4) mg/dL Estim Creat Clear Calc 63.4 Estimated GFR > 60 Random Glucose 97 (60-115) mg/dL Calcium 9.8 (8.4-10.2) mg/dL Total Bilirubin 0.6 (0.0-1.0) mg/dL AST 20 (5-31) U/L ALT 10 (0-31) U/L Alkaline Phosphatase 112 (39-117) U/L Total Protein 7.5 (6.5-8.0) g/dL Albumin 4.3 (3.5-5.0) g/dL Urine Color Urine Appearance Urine pH (5.0-8.0) Ur Specific [place] (1.005-1.025) Urine Protein (NEG-TRACE) MG/DL Urine Glucose (UA) (NEG) MG/DL Urine Ketones (NEG) MG/DL Urine Blood (NEG) Urine Nitrite (NEG) Ur Leukocyte Esterase (NEG) COVID-19 (MANDI) Negative (Negative) COVID-19 Clin Com See Note 01/03/22 Range/Units 13:34 WBC (4.8-10.8) X10*3/uL RBC (4.20-5.50) X10*6/uL Hgb (12.0-16.0) g/dl Hct (37.0-47.0) % MCV (80.0-98.0) fL MCH (27.0-33.0) pg MCHC (31.0-35.0) g/dl RDW (11.0-16.0) % Plt Count (160-400) X10*3/uL MPV (9.4-12.3) fL Immature Gran % (Auto) (0.0-0.4) % Neut % (Auto) (45-73) % Lymph % (Auto) (20-40) % [place] % (Auto) (2-11) % Eos % (Auto) (0-4) % Baso % (Auto) (0-2) % Lymph # (Auto) (1.2-4.9) X10*3/uL [place] # (Auto) (0.1-1.2) X10*3/uL Eos # (Auto) (0.0-0.4) X10*3/uL Baso # (Auto) (0.0-0.2) X10*3/uL Abs Immat Gran (auto) (0.00-0.03) X10*3/uL Absolute Neuts (auto) (2.0-8.3) x10*3/uL Absolute Nucleated RBC (0.0-0.012) X10*3/uL Nucleated RBC % (auto) (0.0-0.2) /100WBC Sodium (135-145) mmol/L Potassium (3.3-5.1) mmol/L Chloride (96-108) mmol/L Carbon Dioxide (22-29) mmol/L Anion Gap (12-20) BUN (9-16) mg/dL Creatinine (0.5-1.4) mg/dL Estim Creat Clear Calc Estimated GFR Random Glucose (60-115) mg/dL Calcium (8.4-10.2) mg/dL Total Bilirubin (0.0-1.0) mg/dL AST (5-31) U/L ALT (0-31) U/L Alkaline Phosphatase (39-117) U/L Total Protein (6.5-8.0) g/dL Albumin (3.5-5.0) g/dL Urine Color YELLOW Urine Appearance HAZY Urine pH 7.0 (5.0-8.0) Ur Specific [place] 1.010 (1.005-1.025) Urine Protein NEG (NEG-TRACE) MG/DL Urine Glucose (UA) NEG (NEG) MG/DL Urine Ketones NEG (NEG) MG/DL Urine Blood NEG (NEG) Urine Nitrite NEG (NEG) Ur Leukocyte Esterase NEG (NEG) COVID-19 (MANDI) (Negative) COVID-19 Clin Com <Declan Combs MD - Last Filed: 01/03/22 19:59> Imaging Data CT scan - head: Radiologist's impression: CT/CT head/brain wo con IMPRESSION: Grossly no evidence of acute territorial infarct or hemorrhage. There are chronic small vessel ischemic changes throughout the periventricular white matter and a few well marginated lucencies located within the putamen that may either represent perivascular spaces or chronic lacunar infarcts. Anatomic features indicate the possibility of underlying normal pressure hydrocephalus as described above. <Thao Nation CNP - Last Filed: 01/03/22 17:03> CTA head/neck: Radiologist's impression: CT/CT angio head neck IMPRESSION: - No acute territorial infarcts. If focal neurologic deficit persists, MRI would be more sensitive in assessment. ? - Severe lateral and third ventriculomegaly with an associated narrowed callosal angle that remains suggestive of normal pressure hydrocephalus in the appropriate clinical context. Periventricular hypoattenuation and part reflect transependymal CSF effusion. 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 Findings remain similar to studies dated back to 02/27/2017. ? 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 ? - There is atherosclerotic calcification involving the carotid bifurcations bilaterally resulting in less than 50% stenoses of the proximal internal carotid arteries on both sides. ? - A 2.4 cm nodule within the left thyroid lobe should be further assessed with thyroid ultrasound. <Thao Nation CNP - Last Filed: 01/03/22 17:03> Discharge Plan Discharge Clinical Impression: Aphasia, TIA (transient ischemic attack) <Thao Nation CNP - Last Filed: 01/03/22 17:03> Patient Disposition: Home, Self-Care <Thao Nation CNP - Last Filed: 01/03/22 17:03> Instructions: Transient Ischemic Attack (ED), Aphasia (DC) <Thao Nation CNP - Last Filed: 01/03/22 17:03> Additional Instructions: Likely you had a small mini stroke Start taking baby aspirin daily Follow-up with neurologist and PCP <Thao Nation CNP - Last Filed: 01/03/22 17:03> Prescriptions: New aspirin [Adult Aspirin Regimen] 81 mg tablet,delayed release (DR/EC) 81 mg PO DAILY Qty: 30 0RF No Action fluticasone propionate 50 mcg/actuation spray,suspension 1 spray intranasal BID 30 Days Qty: 16 3RF valsartan 80 mg tablet 80 mg PO DAILY Qty: 30 2RF doxycycline monohydrate 100 mg capsule 100 mg PO BID 4 Days Qty: 8 0RF acetaminophen 325 mg Tablet 325 mg PO QID PRN (Reason: Pain) 0RF ondansetron HCl [Zofran] 4 mg tablet 4 mg PO Q8H PRN (Reason: nausea and vomiting) Qty: 14 0RF cyanocobalamin (vitamin B-12) [Vitamin B-12] 1,000 mcg Tablet Extended Release 1,000 mcg PO DAILY Qty: 60 3RF alprazolam 0.25 mg tablet 0.25 mg PO TID 30 Days Qty: 90 1RF ammonium lactate 12 % cream topical 0RF cyclobenzaprine 10 mg tablet 10 mg PO TID PRN (Reason: muscle spasm) Qty: 14 0RF phenazopyridine [Pyridium] 100 mg tablet 100 mg PO TID PRN (Reason: pain with urination) Qty: 7 0RF omeprazole 20 mg capsule,delayed release(DR/EC) 20 mg PO DAILY PRN (Reason: gi upset) 0RF <Thao Nation CNP - Last Filed: 01/03/22 17:03> Referrals: Lauren Medina MD [Physician] - 1 week <Thao Nation CNP - Last Filed: 01/03/22 17:03>
[2022-01-03 13:42] LABS: MANUAL DIFF FLAG NO
[2022-01-03 13:46] LABS: Appearance Urine HAZY; Color Urine YELLOW; Glucose Urine UA NEG (NEG); Leukocyte Esterase Urine NEG (NEG); Nitrite Urine NEG (NEG); Urine Blood NEG (NEG); Urine Ketones NEG (NEG); Urine Protein NEG (NEG-TRACE)
[2022-01-03 13:50] LABS: Basophils Percent Auto 0.5 % (0-2); Eosinophils Absolute Auto 0.1 X10*3/uL (0.0-0.4); Eosinophils Percent Auto 0.9 % (0-4); Hematocrit 38.4 % (37.0-47.0); Hemoglobin 12.3 g/dl (12.0-16.0); Imm Gran Abs Auto 0.04 X10*3/uL (0.00-0.03); Imm Gran Pct Auto 0.7 % (0.0-0.4); Lymphocytes Percent Auto 16.2 % (20-40); Mean Corpuscular Hemoglobin 29.5 pg (27.0-33.0); Mean Corpuscular Volume 92.1 fL (80.0-98.0); Mean Platelet Volume 12.3 fL (9.4-12.3); Monocytes Absolute Auto 0.3 X10*3/uL (0.1-1.2); Monocytes Percent Auto 4.9 % (2-11); Neutrophils Absolute Auto 4.5 x10*3/uL (2.0-8.3); Neutrophils Percent Auto 76.8 % (45-73); Platelet Count 117 X10*3/uL (160-400); Red Blood Count 4.17 X10*6/uL (4.20-5.50); Red Cell Distribution Width 13.2 % (11.0-16.0); White Blood Count 5.9 X10*3/uL (4.8-10.8)
[2022-01-03 14:04] LABS: COVID-19 Test Negative (Negative); IDNOW Serial# 16C4AD1C
[2022-01-03 14:05] LABS: Alanine Aminotransferase 10 U/L (0-31); Albumin Level 4.3 g/dL (3.5-5.0); Alkaline Phosphatase 112 U/L (39-117); Anion Gap 13 (12-20); Aspartate Amino Transferase 20 U/L (5-31); Bilirubin Total 0.6 mg/dL (0.0-1.0); Blood Urea Nitrogen 15 mg/dL (9-16); Calcium 9.8 mg/dL (8.4-10.2); Carbon Dioxide 28 mmol/L (22-29); Chloride 103 mmol/L (96-108); Creatinine Clr Calc Pharmacy 63.4; Estimated Glomerular Filt Rate > 60; Glucose Random 97 mg/dL (60-115); Potassium 4.6 mmol/L (3.3-5.1); Sodium 139 mmol/L (135-145); Total Protein 7.5 g/dL (6.5-8.0)
--- NOTE | 2022-01-03 14:36 | PC.NURSE ---
Son left bedside Hi cell phone [phone] and home [phone]
[2022-01-03 15:00] VITALS: BP 145/104; PULSE 93; RESP 16; O2SAT 97
--- NOTE | 2022-01-03 15:00 | PC.NURSE ---
Neuros are intact. Pt reports feeling better s/p Xanax given
--- NOTE | 2022-01-03 15:02 | PC.NURSE ---
Plan for CTA
[2022-01-03] MEDS: iohexoL 350 MG/ML 100 ML INFUS..BTL IV (15:25)
[2022-01-03] MEDS: Aspirin 81 MG TAB.CHEW 162 MG PO (17:07)
[2022-01-03] MEDS: LORazepam 1 MG TABLET PO (17:27)
--- NOTE | 2022-01-03 17:27 | PC.NURSE ---
Medicated prior to MRI
[2022-01-03 19:21] VITALS: BP 115/71; PULSE 99; RESP 18; O2SAT 95
--- NOTE | 2022-01-03 20:00 | ECG_ITS ---
Test Reason : repeat ekg Blood Pressure : / mmHG Vent. Rate : 100 BPM Atrial Rate : 100 BPM P-R Int : 212 ms QRS Dur : 078 ms QT Int : 344 ms P-R-T Axes : 042 010 035 degrees QTc Int : 443 ms Sinus rhythm with 1st degree A-V block Otherwise normal ECG When compared with ECG of 26-OCT-2021 00:37, No significant change was found Referred By: Declan Combs Electronically Signed By:MICHEL CHARLES MD
== END 2022-01-03 20:23 | disposition home or self-care (01) ==
PROVIDERS: Nurse Practitioner Family; Emergency Provider Internal Medicine; PCP Physician Assistant
DX: G45.9 Transient cerebral ischemic attack, unspecified (principal); R47.01 Aphasia; R41.82 Altered mental status, unspecified; R51.9 Headache, unspecified; Z20.822 Contact with and (suspected) exposure to COVID-19; Z79.899 Other long term (current) drug therapy; Z87.891 Personal history of nicotine dependence
CPT/HCPCS: 70450; 70496; 70498; 70551; 80053; 81003; 85025; 87635; 93005; 99285; Q9967

== ENCOUNTER 2022-02-01 06:19 | Emergency (ER) | payer MEDICARE, OTHER, SELFPAY ==
--- NOTE | ~2022-02-01 | CT_ITS ---
EXAMINATION: CT ABDOMEN AND PELVIS WITHOUT CONTRAST CLINICAL INFORMATION: Left lower quadrant pain COMPARISON: None TECHNIQUE: Multidetector volumetric imaging was performed from the superior aspect of the liver through the pubic symphysis. Sagittal and coronal reformatted images were obtained on the technologist's workstation. This CT examination was performed using dose optimization techniques as appropriate, variously including the following: *Automated exposure control *Adjustment of mA and/or kV according to patient size (this includes techniques or standardized protocols for targeted exams where dose is matched to indication/reason for exam; i.e. extremities or head) *Use of iterative reconstruction technique DLP: 702 mGy-cm FINDINGS: LUNG BASES: The visualized lung bases are unremarkable. LIVER, GALLBLADDER, AND BILIARY TREE: 11 mm probable cyst in the liver. Liver otherwise unremarkable. The right lobe is elongated. There is no biliary dilatation. The gallbladder is unremarkable with no evidence of radiopaque gallstones, gallbladder wall thickening, or obvious pericholecystic inflammatory changes. PANCREAS: Unremarkable. SPLEEN: Unremarkable. ADRENAL GLANDS: Unremarkable. KIDNEYS AND URETERS: A few tiny punctate nephroliths are present within the left kidney. Left extrarenal pelvis. No calcifications are seen along the course of the ureters. There are no perinephric collections. BLADDER: Unremarkable. GASTROINTESTINAL TRACT: There is moderate sigmoid diverticular disease but no diverticulitis or right or left lower quadrant inflammatory change. ABDOMINAL WALL: No significant hernia is appreciated. LYMPH NODES: Normal. VASCULAR: Aorta is atherosclerotic and ectatic. The AP diameter of the mid descending aorta is 29 mm. PELVIC VISCERA: Unremarkable. OSSEOUS STRUCTURES: Multilevel degenerative change noted. No acute fracture. CT/CT abdomen pelvis wo con IMPRESSION: Sigmoid diverticular disease. There is no evidence for acute left lower quadrant inflammatory process. Nonobstructive left nephrolithiasis incidentally are observed. Fleischner guidelines were followed.
[2022-02-01 06:24] VITALS: BP 181/113; PULSE 98; RESP 16; TEMP 36.9; O2SAT 94; BMI 30.7
--- NOTE | 2022-02-01 06:39 | ED_ITS ---
HPI - Abdominal Pain General Chief Complaint: Abdominal Pain Stated Complaint: severe lower abd pain & behind R knee Time Seen by Provider: 02/01/22 06:39 Source: patient and old records reviewed Mode of arrival: ambulatory Limitations: no limitations History of Present Illness HPI narrative: also c/o L knee pain had DVT US that was negative in december - pain is anterior knee near pes [place] elicited complaint: abdominal pain Pertinent past history: constipation and diverticulitis Onset (ago): day(s) (2) Pain Consistency: constant Location: LLQ Severity: moderate Quality: aching and dull Radiation: none Migration to: no migration Exacerbating factors: movement Relieving factors: nothing Context: history of similar episodes Associated symptoms: nausea Related Data Home Medications Medication Instructions Recorded Confirmed omeprazole 20 mg capsule,delayed 20 mg PO DAILY PRN 08/07/20 01/28/22 release acetaminophen 325 mg tablet 325 mg PO QID PRN 06/21/21 01/28/22 ammonium lactate 12 % topical cream 1 appl TOPICAL DAILY 11/24/21 01/28/22 desvenlafaxine succinate 25 mg 1 tab PO BEDTIME 01/28/22 01/28/22 tablet,extended release 24 hr Previous Rx's Medication Instructions Recorded alprazolam 0.25 mg tablet 0.25 mg PO TID 30 Days #90 tab 07/22/21 ondansetron HCl 4 mg tablet 4 mg PO Q8H PRN #14 tab 08/16/21 (Zofran) cyanocobalamin (vitamin B-12) 1,000 mcg PO DAILY #60 tab 08/17/21 1,000 mcg tablet,extended release (Vitamin B-12 ER) fluticasone propionate 50 1 spray INTRANASAL BID 30 Days #16 11/08/21 mcg/actuation nasal g spray,suspension valsartan 40 mg tablet 40 mg PO DAILY #90 tab 01/26/22 levofloxacin 500 mg tablet 500 mg PO DAILY #7 tab 02/01/22 ondansetron 4 mg disintegrating 4 mg PO Q8H PRN #20 tab 02/01/22 tablet Allergies Allergy/AdvReac Type Severity Reaction Status Date / Time Sulfa (Sulfonamide Allergy Intermediate RASH Verified 01/28/22 11:50 Antibiotics) amoxicillin [From AUGMENTIN] Allergy Unknown PER H&P Verified 01/28/22 11:50 clavulanic acid Allergy Unknown PER H&P Verified 01/28/22 11:50 [From AUGMENTIN] garlic [GARLIC] Allergy Unknown PER H&P Verified 01/28/22 11:50 metronidazole [From FLAGYL] Allergy Unknown OCULAR Verified 01/28/22 11:50 MIGRAINES penicillamine Allergy Unknown Unknown Verified 01/28/22 11:50 lisinopril AdvReac Intermediate Cough Verified 01/28/22 11:50 nitrofurantoin AdvReac Mild GI side Verified 01/28/22 11:50 effects environmental Allergy Unknown Unknown Uncoded 01/28/22 11:50 flagyl Allergy Unknown Unknown Uncoded 01/28/22 11:50 From KEFLEX Allergy Unknown RASH Uncoded 01/28/22 11:50 Metoprolol Tartrate Allergy Unknown Unknown Uncoded 01/28/22 11:50 Sulfacet-R Allergy Unknown Unknown Uncoded 01/28/22 11:50 Review of Systems Review of Systems Constitutional : No Weight loss, No Fever, No Chills ENT/Mouth : No sore throat, No Rhinorrhea Eyes: No Swelling, No Redness Cardiovascular : No Chest Pain, No SOB, NoEdema Respiratory : No Cough, No Sputum, No Wheezing Gastrointestinal : Positive Nausea, Positive Vomiting, no Diarrhea, positive abdominal Pain, No Hematochezia, No Melena Genitourinary : No Dysuria, No Urinary Frequency, No Hematuria, No Urgency Musculoskeletal : No joint pain, No Myalgias, pos Joint Swelling Skin : No Skin Lesions, No rash Neuro : No Weakness, No Numbness, No Dizziness, No Headache Psych : No Anxiety/Panic, No Depression Heme/Lymph: No Bruising, No Lymphadenopathy Endocrine : No Polyuria, No Polydipsia All other systems reviewed and are negative. [facility] Past Medical History Attestation statement: The following information was validated with the patient. Medical History Anxiety Diverticulitis GERD (gastroesophageal reflux disease) Heart murmur Irritable bowel Surgical History History of appendectomy History of tonsillectomy Family History Family History Father No problems noted. Mother No problems noted. Social History Social History Household Members: Children Housing: House Are you a primary director of patient care to a significant other at home: No Do you presently have visiting nurse or other home services: No Alcohol intake: former Patient Tobacco Use Status: Former Tobacco user e-Cigarette/Vaping Use: Never Used Second Hand Smoke Exposure: No Use of substances other than those prescribed or required for medical reasons: No Advance Directives: No Advance Directives Information Provided: Yes service: No Current occupational status: retired Cognitive needs: No Hearing needs: No Vision needs: Yes (glasses) Physical Exam ED Vital Signs: Vital Signs - 24 hr 02/01/22 06:24 02/01/22 07:23 Temperature 98.4 F Pulse Rate 98 85 Respiratory Rate 16 18 Blood Pressure 181/113 H 172/103 H Pulse Oximetry 94 96 BMI result Body Mass Index 30.7 Appearance: Alert. Oriented X3. No acute distress. Anxious Eyes: Pupils equal, round and reactive to light. ENT: Pharynx normal. Neck: Normal inspection. Neck supple. CVS: Normal heart rate and rhythm. Pulses normal. Respiratory: No respiratory distress. Breath sounds normal. Abdomen: Soft and mild LLQ pain no rebound Skin: Skin warm and dry. Normal skin color. Normal skin turgor. Extremities: No lower extremity edema. No calf ttp L knee anterior on pes anserine bursa ttp but no swelling no erythema no joing effusion distal NV intact Neuro: Oriented X 3. No motor deficit. No sensory deficit. Course Course Course Narrative: no acute findings stable for DC, given symptoms will start on cipro MDM - Abdominal Pain MDM Narrative Medical decision making narrative: 81 yo female with hx of anxiety, diverticulitis, TIA, HTN, arthritis comes in with c/o LLQ pain since monday - labs, UA and CT scan for diverticulitis ordered. She is not toxic and no peritoneal signs. Patient also c/o L knee pain ttp along pes anserine bursa - no calf swelling distal NV intact no signs of infection and no joint effusion discussed getting OTC wrap to put pressure on bursa. Lab Data Result diagrams: 02/01/22 07:23 02/01/22 07:23 Labs: Lab Results 02/01/22 02/01/22 02/01/22 Range/Units 07:21 07:23 07:23 WBC 4.1 L (4.8-10.8) X10*3/uL RBC 3.96 L (4.20-5.50) X10*6/uL Hgb 11.7 L (12.0-16.0) g/dl Hct 36.3 L (37.0-47.0) % MCV 91.7 (80.0-98.0) fL MCH 29.5 (27.0-33.0) pg MCHC 32.2 (31.0-35.0) g/dl RDW 13.2 (11.0-16.0) % Plt Count 115 L (160-400) X10*3/uL MPV 11.9 (9.4-12.3) fL Immature Gran % (Auto) 0.2 (0.0-0.4) % Neut % (Auto) 65.5 (45-73) % Lymph % (Auto) 23.7 (20-40) % [place] % (Auto) 8.4 (2-11) % Eos % (Auto) 1.7 (0-4) % Baso % (Auto) 0.5 (0-2) % Lymph # (Auto) 1.0 L (1.2-4.9) X10*3/uL [place] # (Auto) 0.3 (0.1-1.2) X10*3/uL Eos # (Auto) 0.1 (0.0-0.4) X10*3/uL Baso # (Auto) 0.0 (0.0-0.2) X10*3/uL Abs Immat Gran (auto) 0.01 (0.00-0.03) X10*3/uL Absolute Neuts (auto) 2.7 (2.0-8.3) x10*3/uL Absolute Nucleated RBC 0.000 (0.0-0.012) X10*3/uL Nucleated RBC % (auto) 0.0 (0.0-0.2) /100WBC Sodium 139 (135-145) mmol/L Potassium 4.4 (3.3-5.1) mmol/L Chloride 102 (96-108) mmol/L Carbon Dioxide 29 (22-29) mmol/L Anion Gap 12 (12-20) BUN 16 (9-16) mg/dL Creatinine 0.87 (0.5-1.4) mg/dL Estim Creat Clear Calc 56.0 Estimated GFR > 60 Random Glucose 109 (60-115) mg/dL Calcium 9.9 (8.4-10.2) mg/dL Total Bilirubin 0.7 (0.0-1.0) mg/dL AST 20 (5-31) U/L ALT 15 (0-31) U/L Alkaline Phosphatase 98 (39-117) U/L Total Protein 7.5 (6.5-8.0) g/dL Albumin 4.4 (3.5-5.0) g/dL Lipase 13 (8-78) U/L Urine Color YELLOW Urine Appearance CLEAR Urine pH 6.0 (5.0-8.0) Ur Specific [place] 1.010 (1.005-1.025) Urine Protein NEG (NEG-TRACE) MG/DL Urine Glucose (UA) NEG (NEG) MG/DL Urine Ketones NEG (NEG) MG/DL Urine Blood NEG (NEG) Urine Nitrite NEG (NEG) Ur Leukocyte Esterase NEG (NEG) Discharge Plan Discharge Clinical Impression: Diverticular disease Abdominal pain Qualifiers: Abdominal location: left lower quadrant Qualified Code(s): R10.32 - Left lower quadrant pain Bursitis Qualifiers: Bursitis location: knee Knee bursitis location: pes anserinus bursitis Patient Disposition: Home, Self-Care Instructions: Diverticulosis (ED), Knee Bursitis (ED), Abdominal Pain (ED) Additional Instructions: LUNG BASES: The visualized lung bases are unremarkable.? LIVER, GALLBLADDER, AND BILIARY TREE: 11 mm probable cyst in the liver. Liver otherwise unremarkable. The right lobe is elongated. There is no biliary dilatation. The gallbladder is unremarkable with no evidence of radiopaque gallstones, gallbladder wall thickening, or obvious pericholecystic inflammatory changes.? PANCREAS: Unremarkable.? SPLEEN: Unremarkable.? ADRENAL GLANDS: Unremarkable.? KIDNEYS AND URETERS: A few tiny punctate nephroliths are present within the left kidney. Left extrarenal pelvis. No calcifications are seen along the course of the ureters. There are no perinephric collections. BLADDER: Unremarkable.? GASTROINTESTINAL TRACT: There is moderate sigmoid diverticular disease but no diverticulitis or right or left lower quadrant inflammatory change.? ABDOMINAL WALL: No significant hernia is appreciated.? LYMPH NODES: Normal. VASCULAR: Aorta is atherosclerotic and ectatic. The AP diameter of the mid descending aorta is 29 mm. PELVIC VISCERA: Unremarkable.? OSSEOUS STRUCTURES: Multilevel degenerative change noted. No acute fracture.? CT/CT abdomen pelvis wo con IMPRESSION: Sigmoid diverticular disease. There is no evidence for acute left lower quadrant inflammatory process. Nonobstructive left nephrolithiasis incidentally are observed.? ? Fleischner guidelines were followed. Prescriptions: New levofloxacin 500 mg tablet 500 mg PO DAILY Qty: 7 0RF ondansetron 4 mg tablet,disintegrating 4 mg PO Q8H PRN (Reason: nausea and vomiting) Qty: 20 0RF No Action fluticasone propionate 50 mcg/actuation spray,suspension 1 spray intranasal BID 30 Days Qty: 16 3RF valsartan 40 mg tablet 40 mg PO DAILY Qty: 90 3RF acetaminophen 325 mg Tablet 325 mg PO QID PRN (Reason: Pain) 0RF ondansetron HCl [Zofran] 4 mg tablet 4 mg PO Q8H PRN (Reason: nausea and vomiting) Qty: 14 0RF cyanocobalamin (vitamin B-12) [Vitamin B-12] 1,000 mcg Tablet Extended Release 1,000 mcg PO DAILY Qty: 60 3RF desvenlafaxine succinate 25 mg tablet extended release 24 hr 1 tab PO BEDTIME 0RF alprazolam 0.25 mg tablet 0.25 mg PO TID 30 Days Qty: 90 1RF ammonium lactate 12 % cream 1 appl topical DAILY 0RF omeprazole 20 mg capsule,delayed release(DR/EC) 20 mg PO DAILY PRN (Reason: gi upset) 0RF Referrals: Nick Gomez PA-C [Primary Care Provider] - 3 days (if not better)
[2022-02-01 07:23] VITALS: BP 172/103; PULSE 85; RESP 18; O2SAT 96
[2022-02-01] MEDS: ALPRAZolam 0.25 MG TABLET PO (07:27)
[2022-02-01] MEDS: Ondansetron ODT 4 MG TAB.RAPDIS TRANSLINGU (07:27)
[2022-02-01 07:30] LABS: MANUAL DIFF FLAG NO
[2022-02-01 07:31] LABS: Appearance Urine CLEAR; Color Urine YELLOW; Glucose Urine UA NEG (NEG); Leukocyte Esterase Urine NEG (NEG); Nitrite Urine NEG (NEG); Urine Blood NEG (NEG); Urine Ketones NEG (NEG); Urine Protein NEG (NEG-TRACE)
[2022-02-01 07:37] LABS: Basophils Percent Auto 0.5 % (0-2); Eosinophils Absolute Auto 0.1 X10*3/uL (0.0-0.4); Eosinophils Percent Auto 1.7 % (0-4); Hematocrit 36.3 % (37.0-47.0); Hemoglobin 11.7 g/dl (12.0-16.0); Imm Gran Abs Auto 0.01 X10*3/uL (0.00-0.03); Imm Gran Pct Auto 0.2 % (0.0-0.4); Lymphocytes Percent Auto 23.7 % (20-40); Mean Corpuscular HGB Conc 32.2 g/dl (31.0-35.0); Mean Corpuscular Hemoglobin 29.5 pg (27.0-33.0); Mean Corpuscular Volume 91.7 fL (80.0-98.0); Mean Platelet Volume 11.9 fL (9.4-12.3); Monocytes Absolute Auto 0.3 X10*3/uL (0.1-1.2); Monocytes Percent Auto 8.4 % (2-11); Neutrophils Absolute Auto 2.7 x10*3/uL (2.0-8.3); Neutrophils Percent Auto 65.5 % (45-73); Platelet Count 115 X10*3/uL (160-400); Red Blood Count 3.96 X10*6/uL (4.20-5.50); Red Cell Distribution Width 13.2 % (11.0-16.0); White Blood Count 4.1 X10*3/uL (4.8-10.8)
[2022-02-01 07:50] LABS: Alanine Aminotransferase 15 U/L (0-31); Albumin Level 4.4 g/dL (3.5-5.0); Alkaline Phosphatase 98 U/L (39-117); Anion Gap 12 (12-20); Aspartate Amino Transferase 20 U/L (5-31); Bilirubin Total 0.7 mg/dL (0.0-1.0); Blood Urea Nitrogen 16 mg/dL (9-16); Calcium 9.9 mg/dL (8.4-10.2); Carbon Dioxide 29 mmol/L (22-29); Chloride 102 mmol/L (96-108); Estimated Glomerular Filt Rate > 60; Glucose Random 109 mg/dL (60-115); Lipase 13 U/L (8-78); Potassium 4.4 mmol/L (3.3-5.1); Sodium 139 mmol/L (135-145); Total Protein 7.5 g/dL (6.5-8.0)
[2022-02-01 09:38] VITALS: BP 159/90; PULSE 89; RESP 18; O2SAT 97
== END 2022-02-01 09:40 | disposition home or self-care (01) ==
PROVIDERS: Emergency Provider Emergency Medicine; PCP Physician Assistant
DX: K57.30 Diverticulosis of large intestine without perforation or abscess without bleeding (principal); M70.52 Other bursitis of knee, left knee; Y93.9 Activity, unspecified; M25.562 Pain in left knee; R10.32 Left lower quadrant pain; I10 Essential (primary) hypertension; Z86.73 Personal history of transient ischemic attack (TIA), and cerebral infarction without residual deficits
CPT/HCPCS: 36415; 74176; 80053; 81003; 83690; 85025; 99284

== ENCOUNTER 2022-02-02 08:11 | Outpatient (REF) | payer MEDICARE, OTHER, SELFPAY ==
--- NOTE | ~2022-02-02 | MM_ITS ---
EXAMINATION: MM SCREENING DIGITAL BREAST TOMOSYNTHESIS, BILATERAL CLINICAL INFORMATION: Screening. Asymptomatic. The lifetime risk of breast cancer based on the Tyrer-Cuzick Model is 2%. COMPARISON: Mammography: 01/13/2021, 02/09/2019, 02/03/2018 TECHNIQUE: Digital breast tomosynthesis is performed in both the craniocaudal and mediolateral oblique views along with computer-aided detection (CAD). Synthesized 2D images are generated from the tomosynthesis. Additional left CC x2 and additional right CC views are provided. FINDINGS: There are scattered areas of fibroglandular density (ACR BI-RADS breast composition Category b). There are no significant masses, abnormal calcifications, or other abnormalities. Parenchymal pattern is similar to prior exams and there is no interval developing density or architectural abnormality. No significant changes. MM/MM tomosynthesis screening BI IMPRESSION: No mammographic evidence of malignancy. ASSESSMENT: BI-RADS 1: Negative RECOMMENDATION: Routine annual mammography screening. This patient's information was entered into a reminder system with a target due date for their next mammogram.
== END 2022-02-02 08:12 | disposition home or self-care (01) ==
LOC: HO.MAMMO 08:11
PROVIDERS: Visit Provider Physician Assistant
DX: Z12.31 Encounter for screening mammogram for malignant neoplasm of breast (principal)
CPT/HCPCS: 77063; 77067

== ENCOUNTER 2022-02-06 12:38 | Emergency (ER) | payer MEDICARE, OTHER, SELFPAY ==
--- NOTE | 2022-02-06 | ECG_ITS ---
Test Reason : CP Blood Pressure : / mmHG Vent. Rate : 100 BPM Atrial Rate : 100 BPM P-R Int : 200 ms QRS Dur : 082 ms QT Int : 348 ms P-R-T Axes : 050 -02 031 degrees QTc Int : 448 ms Normal sinus rhythm Possible Left atrial enlargement Cannot rule out Anterior infarct , age undetermined Abnormal ECG When compared with ECG of 03-JAN-2022 20:00, No significant change was found Referred By: Generic ED Physician Electronically Signed By:WILBUR MCFARLAND
--- NOTE | ~2022-02-06 | XR_ITS ---
EXAMINATION: XR CHEST CLINICAL INFORMATION: Chest pain. COMPARISON: 08/16/2021 chest radiograph. TECHNIQUE: Frontal view of the chest was obtained. FINDINGS: The lungs are clear. The heart and mediastinal structures are unremarkable. An old healed right fifth rib fracture is seen. The heart and mediastinal structures are unremarkable. XR/XR chest 1V IMPRESSION: No acute cardiopulmonary process.
[2022-02-06 12:41] VITALS: BP 150/113; PULSE 100; RESP 18; TEMP 36.7; O2SAT 96; BMI 30.1
[2022-02-06 14:20] LABS: MANUAL DIFF FLAG NO
--- NOTE | 2022-02-06 14:23 | PC.NURSE ---
talks non stop and frequently talks over me when I tried to speak, l lateral chest wall pain and tenderness for a couple days and anxiety, nad, skin wpd, iv placed labs sent, pt aware of care plan
[2022-02-06 14:30] LABS: INTERNATIONAL NORM RATIO 1.1 (0.9-1.1)
[2022-02-06 14:31] LABS: Basophils Percent Auto 0.5 % (0-2); Eosinophils Absolute Auto 0.1 X10*3/uL (0.0-0.4); Eosinophils Percent Auto 1.8 % (0-4); Hematocrit 37.1 % (37.0-47.0); Hemoglobin 12.2 g/dl (12.0-16.0); Imm Gran Abs Auto 0.02 X10*3/uL (0.00-0.03); Imm Gran Pct Auto 0.5 % (0.0-0.4); Lymphocytes Absolute Auto 0.8 X10*3/uL (1.2-4.9); Lymphocytes Percent Auto 20.6 % (20-40); Mean Corpuscular HGB Conc 32.9 g/dl (31.0-35.0); Mean Corpuscular Hemoglobin 30.2 pg (27.0-33.0); Mean Corpuscular Volume 91.8 fL (80.0-98.0); Mean Platelet Volume 11.8 fL (9.4-12.3); Monocytes Absolute Auto 0.2 X10*3/uL (0.1-1.2); Neutrophils Absolute Auto 2.7 x10*3/uL (2.0-8.3); Neutrophils Percent Auto 70.6 % (45-73); Platelet Count 121 X10*3/uL (160-400); Red Blood Count 4.04 X10*6/uL (4.20-5.50); Red Cell Distribution Width 13.4 % (11.0-16.0); White Blood Count 3.8 X10*3/uL (4.8-10.8)
[2022-02-06 14:39] LABS: Alanine Aminotransferase 11 U/L (0-31); Albumin Level 4.5 g/dL (3.5-5.0); Alkaline Phosphatase 105 U/L (39-117); Anion Gap 12 (12-20); Aspartate Amino Transferase 18 U/L (5-31); Bilirubin Total 0.5 mg/dL (0.0-1.0); Blood Urea Nitrogen 13 mg/dL (9-16); Calcium 9.6 mg/dL (8.4-10.2); Carbon Dioxide 28 mmol/L (22-29); Chloride 102 mmol/L (96-108); Creatinine Clr Calc Pharmacy 61.7; Estimated Glomerular Filt Rate > 60; Glucose Random 114 mg/dL (60-115); Potassium 4.1 mmol/L (3.3-5.1); Sodium 138 mmol/L (135-145); Total Protein 7.4 g/dL (6.5-8.0)
[2022-02-06 14:46] LABS: B Type Natriuretic Peptide 121 pg/mL (<100); Troponin-I High Sensitivity 5.5 ng/L (<3.5-17.0)
[2022-02-06 14:48] LABS: Appearance Urine CLEAR; Color Urine YELLOW; Glucose Urine UA NEG (NEG); Leukocyte Esterase Urine NEG (NEG); Nitrite Urine NEG (NEG); PH 5.5 (5.0-8.0); Specific Gravity - Urine 1.015 (1.005-1.025); Urine Blood NEG (NEG); Urine Ketones NEG (NEG); Urine Protein NEG (NEG-TRACE)
--- NOTE | 2022-02-06 15:19 | ED.CHESTPAIN ---
HPI - Chest Pain General Chief Complaint: Chest Pain Stated Complaint: bad chest pain, stomach pain Time Seen by Provider: 02/06/22 13:39 Source: patient Mode of arrival: ambulatory Limitations: no limitations History of Present Illness HPI narrative: 80-year-old female with a past medical history of [id number] aortic stenosis who recently had an echocardiogram which revealed severe calcification of aortic valve, LVEF preserved at 60-65%, HTN, GERD, and anxiety disorder?presenting to the ED with multiple complaints which include nausea with left under her right breat/rib cage area and left arm pain and associated nausea for the past to 2 days that has been constant. She reports that she recently had a mammogram 2-3 days ago and she is unsure if this is what caused her pain. She denies any fevers, chills, dizziness, headaches, neck pain/stiffness, trouble swallowing or breathing, dyspnea on exertion, orthopnea, palpitations, paresthesias, vomiting, abd pain, black or bloody stools, diarrhea constipation, recent travel or sick contacts or any other symptoms complaints or concerns at this time. MD complaint: chest pain Pertinent past history: other Onset (ago): day(s) (2 days) Timing of current episode: constant Prior episodes: Yes Onset: other (Cannot recall what she was doing when it started) Pain location: other (Under left breast/rib cage) Pain radiation: left arm Severity: mild Quality: other (She describes the pain as just pain) Relieving factors: nothing Exacerbating factors: nothing Context: other (See above) Associated symptoms: nausea and other (abd pain ) Treatment prior to arrival: none Risk Factors Coronary artery disease risk factors: hyperlipidemia and hypertension Thoracic aortic dissection risk factors: none Related Data On Oral Contraceptives: No Home Medications Medication Instructions Recorded Confirmed omeprazole 20 mg capsule,delayed 20 mg PO DAILY PRN 08/07/20 01/28/22 release acetaminophen 325 mg tablet 325 mg PO QID PRN 06/21/21 01/28/22 ammonium lactate 12 % topical cream 1 appl TOPICAL DAILY 11/24/21 01/28/22 desvenlafaxine succinate 25 mg 1 tab PO BEDTIME 01/28/22 01/28/22 tablet,extended release 24 hr Previous Rx's Medication Instructions Recorded alprazolam 0.25 mg tablet 0.25 mg PO TID 30 Days #90 tab 07/22/21 ondansetron HCl 4 mg tablet 4 mg PO Q8H PRN #14 tab 08/16/21 (Zofran) cyanocobalamin (vitamin B-12) 1,000 mcg PO DAILY #60 tab 08/17/21 1,000 mcg tablet,extended release (Vitamin B-12 ER) fluticasone propionate 50 1 spray INTRANASAL BID 30 Days #16 11/08/21 mcg/actuation nasal g spray,suspension valsartan 40 mg tablet 40 mg PO DAILY #90 tab 01/26/22 levofloxacin 500 mg tablet 500 mg PO DAILY #7 tab 02/01/22 ondansetron 4 mg disintegrating 4 mg PO Q8H PRN #20 tab 02/01/22 tablet cyclobenzaprine 5 mg tablet 5 mg PO TID PRN #14 tab 02/06/22 Allergies Allergy/AdvReac Type Severity Reaction Status Date / Time Sulfa (Sulfonamide Allergy Intermediate RASH Verified 02/06/22 12:41 Antibiotics) amoxicillin [From AUGMENTIN] Allergy Unknown PER H&P Verified 02/06/22 12:41 clavulanic acid Allergy Unknown PER H&P Verified 02/06/22 12:41 [From AUGMENTIN] garlic [GARLIC] Allergy Unknown PER H&P Verified 02/06/22 12:41 metronidazole [From FLAGYL] Allergy Unknown OCULAR Verified 02/06/22 12:41 MIGRAINES penicillamine Allergy Unknown Unknown Verified 02/06/22 12:41 lisinopril AdvReac Intermediate Cough Verified 02/06/22 12:41 nitrofurantoin AdvReac Mild GI side Verified 02/06/22 12:41 effects environmental Allergy Unknown Unknown Uncoded 01/28/22 11:50 flagyl Allergy Unknown Unknown Uncoded 01/28/22 11:50 From KEFLEX Allergy Unknown RASH Uncoded 01/28/22 11:50 Metoprolol Tartrate Allergy Unknown Unknown Uncoded 01/28/22 11:50 Sulfacet-R Allergy Unknown Unknown Uncoded 01/28/22 11:50 Review of Systems Review of Systems: Constitutional : No Weight loss, No Fever, No Chills, No Night Sweats, No Fatigue, No Malaise ENT/Mouth : No Hearing loss, No Ear Pain, No Nasal Congestion, No Sinus Pain, No Hoarseness, No sore throat, No Rhinorrhea, No Swallowing Difficulty Eyes: No Eye Pain, No Swelling, No Redness, No Foreign Body, No Discharge, No Vision Changes Cardiovascular : No Chest Pain, No SOB, No Dyspnea on Exertion, No Orthopnea, No Edema, No Palpitations Respiratory : No Cough, No Sputum, No Wheezing, No Smoke Exposure, No Dyspnea Gastrointestinal : + Nausea, No Vomiting, No Diarrhea, No Constipation, No abdominal Pain, No Hematochezia, No Melena Genitourinary : no irregular bleeding, No Dysuria, No Urinary Frequency, No Hematuria, No Urinary Incontinence, No Urgency, No Flank Pain, No Urinary Flow Changes, No Hesitancy Musculoskeletal : + left rib cage pain, No joint pain, No Myalgias, No Joint Swelling Skin : No Skin Lesions, No rash Neuro : No Weakness, No Numbness, No Paresthesias, No Loss of Consciousness, No Dizziness, No Headache Psych : No Anxiety/Panic, No Depression, No SI/HI/AH/VH, No Social Issues, Heme/Lymph: No Bruising, No Bleeding,No Lymphadenopathy Endocrine : No Polyuria, No Polydipsia, No Temperature Intolerance Yes all other systems are reviewed and are negative [facility] Past Medical History Attestation statement: The following information was validated with the patient. Source: old records reviewed and nursing notes reviewed Medical History Anxiety Diverticulitis GERD (gastroesophageal reflux disease) Heart murmur Irritable bowel Surgical History History of appendectomy History of tonsillectomy Family History Family History Father No problems noted. Mother No problems noted. Social History Social History Household Members: Children Housing: House Are you a primary medicare contact specialist to a significant other at home: No Do you presently have visiting nurse or other home services: No Alcohol intake: former Patient Tobacco Use Status: Former Tobacco user e-Cigarette/Vaping Use: Never Used Second Hand Smoke Exposure: No Advance Directives: Yes Advance Directives Information Provided: No Advance Directives on File: No service: No Current occupational status: retired Cognitive needs: No Hearing needs: No Vision needs: Yes (glasses) Physical Exam Vital Signs: Vital Signs: Last Vital Signs Temp 98.1 F 02/06/22 12:41 Pulse 89 02/06/22 15:52 Resp 18 02/06/22 15:52 BP 132/89 02/06/22 15:52 Pulse Ox 99 02/06/22 15:52 BMI result Body Mass Index 30.1 vital signs have been reviewed as normal and appeared to be correct. Blood pressure 150/113. Heart rate normal. Respiration rate normal. Temperature normal. Oxygen saturation normal. Appearance: Alert. Oriented X3. No acute distress. Head: Normal external exam. Normocephalic. Atraumatic. Eyes: PERRLA. EOMI. Conjunctiva and sclera normal. Eyelids normal. ENT: EAC normal. TM's Normal. Pharynx normal. Uvula midline. Moist mucous membranes. No lesions/ulcerations or masses noted on the tongue. Normal voice. No trismus noted. No drooling noted. No muffled voice noted. Neck: Normal inspection. Neck supple. FROM. No adenopathy. Thyroid Normal. No meningeal signs. CVS: Normal heart rate and rhythm. Heart sound normal. Pulses normal throughout. No murmurs/rales/gallops. Respiratory: No respiratory distress. Painless inspiration. Breath sounds normal. No wheezes/rales/rhonchi noted. Chest nontender. No crepitus is noted. No signs of trauma noted. No accessory muscle usage noted or decreased air movement noted. No signs of trauma. Abdomen: Soft and nontender. Bowel sounds normal in all 4 quadrants. No distention noted. No organomegaly noted. No visible injury noted. Back: No CVA tenderness. Full range of motion noted. Nontender. No signs of trauma. Patient neuro intact bilaterally and distally on all 4 extremities. Patient's reflexes intact bilaterally and distally on all 4 extremities. No rashes/lesion/induration/fluctuance or signs of infection noted. Skin: Skin warm and dry. Normal skin color. Normal skin turgor. No rashes/lesions/lacerations noted. Extremities: No lower extremity edema. No calf tenderness is noted. Extremities exhibit normal range of motion and nontender. Neuro: Oriented X 3. No motor deficit. No sensory deficit. Reflexes normal. Normal steady gait. No focal neuro deficits noted. CN's II-XII intact bilaterally? Vascular: + radial pulses/+ 2 distal pedal pulses/+2 dorsalis pedis b/l. Normal cap refill. No cyanosis noted to upper extremity nails and lower extremity toes nails. Course Course Course Narrative: 13:45pm - 80-year-old female with a past medical history of [id number] aortic stenosis who recently had an echocardiogram which revealed severe calcification of aortic valve, LVEF preserved at 60-65%, HTN, GERD, and anxiety disorder?presenting to the ED with multiple complaints which include nausea with left under her right breast/rib cage area and left arm pain and associated nausea for the past to 2 days that has been constant. She reports that she recently had a mammogram 2-3 days ago and she is unsure if this is what caused her pain. Plan: Labs, EKG, chest x-ray, UA and re-evaluate. Reevaluation(s) Reevaluation #1: - labs reviewed patient with a white blood cell count of 3000 although it appears that patient has had a low white blood counts in the past. Troponin 5.5. It appears that the patient normally has a chronic elevated troponin and this is the lowest it has been. Therefore no repeat indicated at this time as patient has had persistent left rib cage/breast pain for the past 2 days. Otherwise all other labs are within normal limits. - chest x-ray within normal limits no acute processes are noted. - EKG was similar compared to prior no acute ischemic change are noted. - UA within normal limits no evidence of UTI. - therefore at this time patient can be discharged will DC home with muscle relaxer as patient most likely has muscle strain from the mammogram. Patient understands agrees with this plan. MDM - Chest Pain Medical Records Data Attestation: I reviewed the patient's medical records. Lab Data Attestation: I reviewed the patient's lab results. Result diagrams: 02/06/22 14:13 02/06/22 14:13 Labs: Lab Results 02/06/22 02/06/22 02/06/22 Range/Units 14:13 14:13 14:13 WBC 3.8 L (4.8-10.8) X10*3/uL RBC 4.04 L (4.20-5.50) X10*6/uL Hgb 12.2 (12.0-16.0) g/dl Hct 37.1 (37.0-47.0) % MCV 91.8 (80.0-98.0) fL MCH 30.2 (27.0-33.0) pg MCHC 32.9 (31.0-35.0) g/dl RDW 13.4 (11.0-16.0) % Plt Count 121 L (160-400) X10*3/uL MPV 11.8 (9.4-12.3) fL Immature Gran % (Auto) 0.5 H (0.0-0.4) % Neut % (Auto) 70.6 (45-73) % Lymph % (Auto) 20.6 (20-40) % Tyler % (Auto) 6.0 (2-11) % Eos % (Auto) 1.8 (0-4) % Baso % (Auto) 0.5 (0-2) % Lymph # (Auto) 0.8 L (1.2-4.9) X10*3/uL Tyler # (Auto) 0.2 (0.1-1.2) X10*3/uL Eos # (Auto) 0.1 (0.0-0.4) X10*3/uL Baso # (Auto) 0.0 (0.0-0.2) X10*3/uL Abs Immat Gran (auto) 0.02 (0.00-0.03) X10*3/uL Absolute Neuts (auto) 2.7 (2.0-8.3) x10*3/uL Absolute Nucleated RBC 0.000 (0.0-0.012) X10*3/uL Nucleated RBC % (auto) 0.0 (0.0-0.2) /100WBC PT 12.0 (9.9-13.0) SEC INR 1.1 (0.9-1.1) Sodium 138 (135-145) mmol/L Potassium 4.1 (3.3-5.1) mmol/L Chloride 102 (96-108) mmol/L Carbon Dioxide 28 (22-29) mmol/L Anion Gap 12 (12-20) BUN 13 (9-16) mg/dL Creatinine 0.81 (0.5-1.4) mg/dL Estim Creat Clear Calc 61.7 Estimated GFR > 60 Random Glucose 114 (60-115) mg/dL Calcium 9.6 (8.4-10.2) mg/dL Magnesium 2.0 (1.6-2.6) mg/dL Total Bilirubin 0.5 (0.0-1.0) mg/dL AST 18 (5-31) U/L ALT 11 (0-31) U/L Alkaline Phosphatase 105 (39-117) U/L Total Creatine Kinase 136 (26-140) U/L Troponin I High Sens (<3.5-17.0) ng/L B-Natriuretic Peptide (<100) pg/mL Total Protein 7.4 (6.5-8.0) g/dL Albumin 4.5 (3.5-5.0) g/dL Urine Color Urine Appearance Urine pH (5.0-8.0) Ur Specific [place] (1.005-1.025) Urine Protein (NEG-TRACE) MG/DL Urine Glucose (UA) (NEG) MG/DL Urine Ketones (NEG) MG/DL Urine Blood (NEG) Urine Nitrite (NEG) Ur Leukocyte Esterase (NEG) 02/06/22 02/06/22 Range/Units 14:13 14:36 WBC (4.8-10.8) X10*3/uL RBC (4.20-5.50) X10*6/uL Hgb (12.0-16.0) g/dl Hct (37.0-47.0) % MCV (80.0-98.0) fL MCH (27.0-33.0) pg MCHC (31.0-35.0) g/dl RDW (11.0-16.0) % Plt Count (160-400) X10*3/uL MPV (9.4-12.3) fL Immature Gran % (Auto) (0.0-0.4) % Neut % (Auto) (45-73) % Lymph % (Auto) (20-40) % Tyler % (Auto) (2-11) % Eos % (Auto) (0-4) % Baso % (Auto) (0-2) % Lymph # (Auto) (1.2-4.9) X10*3/uL Tyler # (Auto) (0.1-1.2) X10*3/uL Eos # (Auto) (0.0-0.4) X10*3/uL Baso # (Auto) (0.0-0.2) X10*3/uL Abs Immat Gran (auto) (0.00-0.03) X10*3/uL Absolute Neuts (auto) (2.0-8.3) x10*3/uL Absolute Nucleated RBC (0.0-0.012) X10*3/uL Nucleated RBC % (auto) (0.0-0.2) /100WBC PT (9.9-13.0) SEC INR (0.9-1.1) Sodium (135-145) mmol/L Potassium (3.3-5.1) mmol/L Chloride (96-108) mmol/L Carbon Dioxide (22-29) mmol/L Anion Gap (12-20) BUN (9-16) mg/dL Creatinine (0.5-1.4) mg/dL Estim Creat Clear Calc Estimated GFR Random Glucose (60-115) mg/dL Calcium (8.4-10.2) mg/dL Magnesium (1.6-2.6) mg/dL Total Bilirubin (0.0-1.0) mg/dL AST (5-31) U/L ALT (0-31) U/L Alkaline Phosphatase (39-117) U/L Total Creatine Kinase (26-140) U/L Troponin I High Sens 5.5 (<3.5-17.0) ng/L B-Natriuretic Peptide 121 H (<100) pg/mL Total Protein (6.5-8.0) g/dL Albumin (3.5-5.0) g/dL Urine Color YELLOW Urine Appearance CLEAR Urine pH 5.5 (5.0-8.0) Ur Specific [place] 1.015 (1.005-1.025) Urine Protein NEG (NEG-TRACE) MG/DL Urine Glucose (UA) NEG (NEG) MG/DL Urine Ketones NEG (NEG) MG/DL Urine Blood NEG (NEG) Urine Nitrite NEG (NEG) Ur Leukocyte Esterase NEG (NEG) Imaging Data Chest x-ray: Attestation: I personally reviewed and interpreted this imaging study as follows: Radiologist's impression: FINDINGS: The lungs are clear. The heart and mediastinal structures are unremarkable. An old healed right fifth rib fracture is seen. The heart and mediastinal structures are unremarkable. XR/XR chest 1V IMPRESSION: No acute cardiopulmonary process. ECG Data ECG #1: Attestation: I personally reviewed and interpreted this ECG as follows: ECG interpretation date: 02/06/22 ECG interpretation time: 12:46 Interpretation: Normal sinus rhythm with ventricular rate of 100 will left atrial enlargement and nonspecific ST abnormalities no acute ischemic changes are noted. Similar compared to prior EKG on 01/03/2022 Discharge Plan Discharge Clinical Impression: Chest wall muscle strain Patient Disposition: Home, Self-Care Instructions: Muscle Strain (DC) Prescriptions: New cyclobenzaprine 5 mg tablet 5 mg PO TID PRN (Reason: muscle spasm) Qty: 14 0RF No Action fluticasone propionate 50 mcg/actuation spray,suspension 1 spray intranasal BID 30 Days Qty: 16 3RF valsartan 40 mg tablet 40 mg PO DAILY Qty: 90 3RF acetaminophen 325 mg Tablet 325 mg PO QID PRN (Reason: Pain) 0RF ondansetron HCl [Zofran] 4 mg tablet 4 mg PO Q8H PRN (Reason: nausea and vomiting) Qty: 14 0RF cyanocobalamin (vitamin B-12) [Vitamin B-12] 1,000 mcg Tablet Extended Release 1,000 mcg PO DAILY Qty: 60 3RF desvenlafaxine succinate 25 mg tablet extended release 24 hr 1 tab PO BEDTIME 0RF levofloxacin 500 mg tablet 500 mg PO DAILY Qty: 7 0RF ondansetron 4 mg tablet,disintegrating 4 mg PO Q8H PRN (Reason: nausea and vomiting) Qty: 20 0RF alprazolam 0.25 mg tablet 0.25 mg PO TID 30 Days Qty: 90 1RF ammonium lactate 12 % cream 1 appl topical DAILY 0RF omeprazole 20 mg capsule,delayed release(DR/EC) 20 mg PO DAILY PRN (Reason: gi upset) 0RF Referrals: Nick Gomez PA-C [Primary Care Provider] - 2 days
[2022-02-06 15:52] VITALS: BP 132/89; PULSE 89; RESP 18; O2SAT 99
== END 2022-02-06 16:14 | disposition home or self-care (01) ==
PROVIDERS: Physician Assistant Medical; Emergency Provider Student in an Organized Health Care Education/Training Program; PCP Physician Assistant
DX: S29.011A Strain of muscle and tendon of front wall of thorax, initial encounter (principal); X50.1XXA Overexertion from prolonged static or awkward postures, initial encounter; Y93.89 Activity, other specified; Y92.019 Unspecified place in single-family (private) house as the place of occurrence of the external cause; Y99.9 Unspecified external cause status
CPT/HCPCS: 36415; 71045; 80053; 81003; 82550; 83735; 83880; 84484; 85025; 85610; 93005; 99283; 99284

== ENCOUNTER → 2022-02-07 09:30 | Outpatient (REF) | payer MEDICARE, OTHER, SELFPAY ==
--- NOTE | 2022-02-07 09:34 | CA_ITS ---
Transthoracic Echocardiogram Patient (Last, First, Middle): Bella Henley G Gender: Female Date of : 1940 Age: 81 Procedure Date: 02/07/2022 Procedure Type: Transthoracic Echocardiogram Location: OP Height: 167.64 cm Weight: 89.81 kg BSA: 1.99 m2 Heart Rate: bpm BP: 124 / 68 mmHg Mine Supervisor: Referring MD: Tre Duffy MD Symptoms: I35.0 - Nonrheumatic aortic (valve) stenosis Study Quality: Fair ECG Rhythm: Sinus Conclusions: - The left ventricular systolic function is normal. The calculated ejection fraction is 60% by biplane method. - There is moderate aortic valve stenosis. Findings Left Ventricle Normal left ventricular cavity size. There is mildly increased left ventricular wall thickness. The left ventricular systolic function is normal. The calculated ejection fraction is 60% by biplane method. There is no evidence of regional wall motion abnormalities. Evidence suggests grade I (mild) diastolic dysfunction. Right Ventricle Normal right ventricular cavity size and systolic function. Atria Both atria are normal in size. Aortic Valve There is severe calcification of the aortic valve. There is moderate aortic valve stenosis. The mean gradient is 32 mmHg. The aortic valve area is 1.07 cm2. There is trace (trivial) aortic valve regurgitation. Dimensionless index 0.32. Mitral Valve There is moderate mitral annular calcification. There is trace mitral valve regurgitation. There is no mitral valve stenosis. Pulmonic Valve The pulmonic valve is likely normal. Tricuspid Valve There is mild tricuspid valve regurgitation. The pulmonary artery systolic pressure is normal. Great Vessels There is mild dilatation of the ascending aorta measuring 4.00 cm. Venous The inferior vena cava is normal in size and collapses greater than 50% with inspiration. Pericardium/Pleural There is no evidence of pericardial effusion. Prior Study Comparison No significant change compared to prior study dated: 07/16/2021. Measurements 2D Linear Measurements IVSd: 1.22 0.6-0.9/0.6-1.0 cm LVIDd: 3.65 3.9-5.3/4.2-5.9 cm LVIDd Index: 1.83 2.4-3.2/2.2-3.1 cm/m2 LVIDs: 2.54 2.0-3.6 cm LVPWd: 1.23 0.7-1.1 cm Ao Root: 3.80 2.1-3.5 cm LA Diam: 2.70 2.7-3.8/3.0-4.0 cm LAIDs Index: 1.36 1.5-2.3 cm/m2 LV Mass: 185.49 67-162/88-224 g LV Mass Index: 93.21 43-95/49-115 g/m2 LVOT Diam: 2.00 3.0+(-)1.3 cm 2D Systolic Function EF 4C: 60.40 >55% EF 2C: 59.60 >55% EF BiP: 59.60 >55% Mitral Valve MV Pk E: 0.65 MV PK A: 1.12 MV Decel Time: 114.00 E/A: 0.60 E'Lateral: 6.74 E'Medial: 5.98 E/E' Med: 10.80 E/E' Lat: 9.60 PHT: 33.00 MVA PHT: 6.67 Decel [place]: 5.66 Aortic Valve AoV Pk Anthony: 3.71 AoV Mn Anthony: 2.71 AoV VTI: 0.79 AoV Pk Grad: 55.00 Aov Mn Grad: 32.00 LULA Cont.VTI: 1.07 LVOT LVOT Pk Anthony: 1.13 LVOT Mn Anthony: 0.77 LVOT VTI: 0.27 LVOT Pk Grad: 5.00 LVOT Mn Grad: 3.00 LVOT Diam: 2.00 LVOT Area: 3.14 Diastolic Function MV Pk E: 0.65 MV Pk A: 1.12 E/A: 0.60 E'Medial: 5.98 E/E' Med: 10.80 E' Laterial: 6.74 E/E' Lat: 9.60 Tricuspid Valve TR Pk Anthony: 2.45 TR Pk Grad: 24.00 RA Press: 3.00 RVSP: 27.00 Great Vessels Aorta Ao Root-2D: 3.80 2.0-3.7 cm Ao Asc: 4.00 2.1-3.4 cm Pulmonary Valve PV Pk Anthony: 1.07 Peak PV Grad: 5.00 Updated in Other Vendor System with Status of Final Tre Duffy MD electronically signed on 02/11/2022 3:58:03 PM with status of Final
== END ==
LOC: HO.CARD 09:30
PROVIDERS: Visit Provider Internal Medicine
DX: I35.0 Nonrheumatic aortic (valve) stenosis (principal)
CPT/HCPCS: 93306

== ENCOUNTER → 2022-02-15 09:53 | Outpatient (BNVA) | payer MEDICARE, OTHER, SELFPAY | PROVIDERS: PCP Physician Assistant; Referring Provider Physician Assistant; Visit Provider Internal Medicine | DX: I35.0 Nonrheumatic aortic (valve) stenosis (principal); I10 Essential (primary) hypertension; F41.9 Anxiety disorder, unspecified | CPT/HCPCS: 99212 ==

== ENCOUNTER 2022-02-25 08:29 | Emergency (ER) | payer MEDICARE, OTHER, SELFPAY ==
--- NOTE | ~2022-02-25 | CT_ITS ---
EXAMINATION: CT ABDOMEN AND PELVIS WITHOUT CONTRAST CLINICAL INFORMATION: Left-sided abdominal pain. Rule out diverticulitis. COMPARISON: CT of the abdomen and pelvis January 2022 TECHNIQUE: Multidetector volumetric imaging was performed from the superior aspect of the liver through the pubic symphysis. Sagittal and coronal reformatted images were obtained on the technologist's workstation. This CT examination was performed using dose optimization techniques as appropriate, variously including the following: *Automated exposure control *Adjustment of mA and/or kV according to patient size (this includes techniques or standardized protocols for targeted exams where dose is matched to indication/reason for exam; i.e. extremities or head) *Use of iterative reconstruction technique DLP: 766 mGy-cm FINDINGS: LUNG BASES: The visualized lung bases are unremarkable. LIVER, GALLBLADDER, AND BILIARY TREE: There is a small liver cyst. Liver is otherwise unremarkable. The gallbladder is unremarkable with no evidence of radiopaque gallstones, gallbladder wall thickening, or obvious pericholecystic inflammatory changes. PANCREAS: Unremarkable. SPLEEN: Unremarkable. ADRENAL GLANDS: There is fullness of left adrenal gland that is stable. The right adrenal gland is normal. KIDNEYS AND URETERS: There are left renal stones that are stable. No hydronephrosis, ureteral dilatation or ureteral stone. The right kidney is normal appearing. BLADDER: Not optimally distended. GASTROINTESTINAL TRACT: There is diverticulosis of the colon. No evidence of diverticulitis is seen. There is stool throughout the colon suggestive of constipation. Small and large bowel is otherwise normal. The appendix is not seen. There are no inflammatory changes in the right lower quadrant. ABDOMINAL WALL: No significant hernia is appreciated. LYMPH NODES: Normal. VASCULAR: There is evidence of atherosclerotic disease. There is mild dilatation of the mid abdominal aorta measuring up to 3 cm. PELVIC VISCERA: Unremarkable. OSSEOUS STRUCTURES: There are degenerative changes of the spine. CT/CT abdomen pelvis wo con IMPRESSION: Diverticulosis. No evidence of diverticulitis. Stool throughout the colon suggestive of constipation. Left renal stones. Liver cyst. Fleischner guidelines were followed.
[2022-02-25 08:35] VITALS: BP 195/99; PULSE 100; RESP 18; TEMP 36.7; O2SAT 97; BMI 30.7
--- NOTE | 2022-02-25 09:53 | ED_ITS ---
HPI - Abdominal Pain General Chief Complaint: Abdominal Pain Stated Complaint: intense abd pain Time Seen by Provider: 02/25/22 09:27 Source: patient Mode of arrival: ambulatory Limitations: no limitations History of Present Illness HPI narrative: 81-year-old female who presents emergency department for evaluation of abdominal pain x4 days. The patient states the pain came on gradually and initially was intermittent but over the past 2 days the pain is been constant and is increased in intensity. She points to her left side of her abdomen when asked to localize the pain. The pain is a pressure-like pain which is now constant and is 9/10 at its worst. The patient had associated nausea with no vomiting. She states her last bowel movement was last night but this did not relieve her pain. She does have a history of diverticulitis but she states this pain feels different than her diet radiculitis pain. She states that she last had diverticulitis in 2013 and was hospitalized for 5 days for IV antibiotics and pain management. The patient states that she stopped her valsartan for 1 weeks because she believes that it was causing her to have neck pain and chills. I did review the cardiology note from 02/15/2022 and in the note by the quantitative software engineer Dr. Ruiz, the recommendation was to stay on this medication. Past surgical history is significant for an appendectomy. Related Data Home Medications Medication Instructions Recorded Confirmed omeprazole 20 mg capsule,delayed 20 mg PO DAILY PRN gi upset 08/07/20 02/15/22 release acetaminophen 325 mg tablet 325 mg PO QID PRN Pain 06/21/21 02/15/22 ammonium lactate 12 % topical cream 1 appl topical DAILY 11/24/21 02/15/22 Previous Rx's Medication Instructions Recorded alprazolam 0.25 mg tablet 0.25 mg PO TID Anxiety 30 days #90 07/22/21 tabs ondansetron HCl 4 mg tablet 4 mg PO Q8H PRN nausea and 08/16/21 (Zofran) vomiting #14 tabs cyanocobalamin (vitamin B-12) 1,000 mcg PO DAILY #60 tabs 08/17/21 1,000 mcg tablet,extended release (Vitamin B-12 ER) fluticasone propionate 50 1 spray intranasal BID 30 days #16 11/08/21 mcg/actuation nasal grams spray,suspension ondansetron 4 mg disintegrating 4 mg PO Q8H PRN nausea and 02/01/22 tablet vomiting #20 tabs valsartan 40 mg tablet 40 mg PO DAILY #90 tabs 02/07/22 Allergies Allergy/AdvReac Type Severity Reaction Status Date / Time Sulfa (Sulfonamide Allergy Intermediate RASH Verified 02/15/22 09:58 Antibiotics) amoxicillin [From AUGMENTIN] Allergy Unknown PER H&P Verified 02/15/22 09:58 clavulanic acid Allergy Unknown PER H&P Verified 02/15/22 09:58 [From AUGMENTIN] garlic [GARLIC] Allergy Unknown PER H&P Verified 02/15/22 09:58 metronidazole [From FLAGYL] Allergy Unknown OCULAR Verified 02/15/22 09:58 MIGRAINES penicillamine Allergy Unknown Unknown Verified 02/15/22 09:58 lisinopril AdvReac Intermediate Cough Verified 02/15/22 09:58 nitrofurantoin AdvReac Mild GI side Verified 02/15/22 09:58 effects environmental Allergy Unknown Unknown Uncoded 01/28/22 11:50 flagyl Allergy Unknown Unknown Uncoded 01/28/22 11:50 From KEFLEX Allergy Unknown RASH Uncoded 01/28/22 11:50 Metoprolol Tartrate Allergy Unknown Unknown Uncoded 01/28/22 11:50 Sulfacet-R Allergy Unknown Unknown Uncoded 01/28/22 11:50 Review of Systems Review of Systems Yes all other systems are reviewed and are negative [facility] Past Medical History [facility] Narrative: Past medical history: Hypertension, GERD, TIA, diverticulosis, diverticulitis. Past surgical history: Tonsillectomy, D&C after miscarriage, appendectomy. Social history: She states she is a former smoker and quit smoking in 2013. She smoked for 50 years. She denies alcohol use. She denies drug use. Surgical History History of appendectomy History of tonsillectomy Family History Family History Father No problems noted. Mother No problems noted. Social History Social History Household Members: Children Housing: House Are you a primary acute care clinical nurse specialist to a significant other at home: No Do you presently have visiting nurse or other home services: No Alcohol intake: former Patient Tobacco Use Status: Former Tobacco user e-Cigarette/Vaping Use: Never Used Second Hand Smoke Exposure: No Advance Directives: No Advance Directives Information Provided: Yes service: No Current occupational status: retired Cognitive needs: No Hearing needs: No Vision needs: Yes (glasses) Physical Exam ED Vital Signs: Vital Signs - 24 hr 02/25/22 08:35 02/25/22 10:34 02/25/22 12:01 Temperature 98.0 F Pulse Rate 100 89 86 Respiratory Rate 18 18 18 Blood Pressure 195/99 H 162/82 H 163/77 H Pulse Oximetry 97 97 95 Oxygen Delivery Method Room Air Room Air Room Air BMI result Body Mass Index 30.7 Const General: cooperative and no acute distress Orientation/consciousness: oriented to person and oriented to place Limitations: no limitations HENMT Head: Yes normal to inspection, Yes normocephalic and Yes atraumatic Ears: external ears normal General nose exam: Normal external nose present Face and sinus: Yes normal facial exam Mouth: Normal oral and palatal mucosa present Throat: Yes posterior oropharynx normal Eyes General: appearance normal, both eyes and all related structures Pupils: Equal, round and reactive pupils present Neck Neck: Yes normal visual inspection, Yes no lymphadenopathy, Yes trachea midline and Yes supple Chest Chest palpation & inspection: normal inspection of the chest and normal palp ation of entire chest wall Resp Effort & Inspection: normal respiratory effort and able to speak in complete sentences Auscultation: clear to auscultation bilaterally Cardio Rate: regular rate Rhythm: regular rhythm Heart sounds: S1 normal heart sound present, S2 normal heart sound present and Murmur heart sound present systolic III/ and at the left sternal border GI Inspection: Yes normal to inspection Palpation (GI): Soft to palpation, Tenderness to palpation present (GI) in the LLQ (Moderate), in the LUQ (Mild) and suprapubicly (Mild) and no guarding Auscultation: normal bowel sounds General: Yes no CVA tenderness Back/Spine/Pelvis Back: no CVA tenderness Skin General skin exam: no rashes or lesions noted Neuro General: oriented to person and oriented to place Cranial nerves: Yes CN's II-XII intact bilaterally and Yes Equal, round and reactive pupils present Cognition (Neuro): normal cognition Motor exam (neuro): 5/5 motor strength present throughout Extrem General: Yes normal to inspection Psych Appearance: grossly normal Speech and movement: Normal speech and movement present Affect: normal affect Attitude: cooperative Thought process: Normal thought process present Thought content: Normal thought content present Course Course Course Narrative: 81-year-old female who presents emergency department for evaluation intermittent left-sided abdominal pain x4 days with the pain becoming constant and severe over the past 2 days. Patient had associated nausea with no other symptoms. The patient does have a history of diverticulitis and an appendectomy. Vital signs revealed an elevated blood pressure of 195/99 but the patient recently stopped her blood pressure medications as per her quantitative software engineer. Vital signs were otherwise unremarkable. The patient's abdominal exam did reveal mild left upper quadrant and suprapubic tenderness with moderate left lower quadrant tenderness. I did order laboratory evaluation includes CBC, CMP, lipase, urinalysis. CT scan of the abdomen pelvis without IV contrast will be obtained. Patient was treated with normal saline 1 L IV, Toradol 30 mg IV and Zofran 4 mg IV. 1301: Laboratory evaluation: WBC low 3.5, platelet count low 11.4. This is chronic CMP revealed elevated CO2 of 30 otherwise unremarkable. Lipase was normal. Urinalysis was negative. Radiology evaluation:Diverticulosis. No evidence of diverticulitis. Stool throughout the colon suggestive of constipation. Left renal stones. Liver cyst. At this time, there is no clear etiology for the patient's pain. It is po ssible the patient may have constipation as the cause of her discomfort. She was advised to take Colace and MiraLax for 3-5 days. If she has no bowel movement after 3-5 days she was advised to take extra-strength Senokot . The patient was given printed and verbal instructions discharged home. MDM - Abdominal Pain Lab Data Result diagrams: 02/25/22 10:27 02/25/22 10:48 Labs: Lab Results 02/25/22 02/25/22 02/25/22 Range/Units 10:27 10:48 11:12 WBC 3.5 L (4.8-10.8) X10*3/uL RBC 3.82 L (4.20-5.50) X10*6/uL Hgb 11.2 L (12.0-16.0) g/dl Hct 35.1 L (37.0-47.0) % MCV 91.9 (80.0-98.0) fL MCH 29.3 (27.0-33.0) pg MCHC 31.9 (31.0-35.0) g/dl RDW 13.3 (11.0-16.0) % Plt Count 114 L (160-400) X10*3/uL MPV 11.4 (9.4-12.3) fL Immature Gran % (Auto) 0.3 (0.0-0.4) % Neut % (Auto) 64.4 (45-73) % Lymph % (Auto) 25.6 (20-40) % Hamlin % (Auto) 6.3 (2-11) % Eos % (Auto) 2.8 (0-4) % Baso % (Auto) 0.6 (0-2) % Lymph # (Auto) 0.9 L (1.2-4.9) X10*3/uL Hamlin # (Auto) 0.2 (0.1-1.2) X10*3/uL Eos # (Auto) 0.1 (0.0-0.4) X10*3/uL Baso # (Auto) 0.0 (0.0-0.2) X10*3/uL Abs Immat Gran (auto) 0.01 (0.00-0.03) X10*3/uL Absolute Neuts (auto) 2.3 (2.0-8.3) x10*3/uL Absolute Nucleated RBC 0.000 (0.0-0.012) X10*3/uL Nucleated RBC % (auto) 0.0 (0.0-0.2) /100WBC Sodium 140 (135-145) mmol/L Potassium 4.0 (3.3-5.1) mmol/L Chloride 104 (96-108) mmol/L Carbon Dioxide 30 H (22-29) mmol/L Anion Gap 10 L (12-20) BUN 13 (9-16) mg/dL Creatinine 0.76 (0.5-1.4) mg/dL Estim Creat Clear Calc 64.2 Estimated GFR > 60 Random Glucose 101 (60-115) mg/dL Calcium 9.1 (8.4-10.2) mg/dL Total Bilirubin 0.6 (0.0-1.0) mg/dL AST 18 (5-31) U/L ALT 10 (0-31) U/L Alkaline Phosphatase 100 (39-117) U/L Total Protein 6.7 (6.5-8.0) g/dL Albumin 4.1 (3.5-5.0) g/dL Lipase 14 (8-78) U/L Urine Color STRAW Urine Appearance CLEAR Urine pH 7.0 (5.0-8.0) Ur Specific Cos Cob 1.010 (1.005-1.025) Urine Protein NEG (NEG-TRACE) MG/DL Urine Glucose (UA) NEG (NEG) MG/DL Urine Ketones NEG (NEG) MG/DL Urine Blood NEG (NEG) Urine Nitrite NEG (NEG) Ur Leukocyte Esterase NEG (NEG) Discharge Plan Discharge Clinical Impression: Abdominal pain Qualifiers: Abdominal location: left lower quadrant Qualified Code(s): R10.32 - Left lower quadrant pain Constipation Qualifiers: Constipation type: other constipation type Qualified Code(s): K59.09 - Other constipation Patient Disposition: Home, Self-Care Instructions: Abdominal Pain (ED), Constipation (ED) Additional Instructions: Your laboratory evaluation was unremarkable. The CT scan of your abdomen pelvis without IV contrast did not reveal a clear cause for your pain. It is possible that you may be constipated and this could be causing some of your symptoms. Take MiraLax once a day for 7 days. Take Colace 1 pill twice a day bowel for 7 days If you do not have a bowel movement in 3 days then take extra-strength Senokot (sennosides) 1 pill twice a day for 4 days. This is a mild laxative and you should not take it for more than 4 days in a row. Increase your fluid intake to help prevent dehydration and constipation Follow-up with your doctor in 2 days. Please return to the emergency department if your symptoms get worse or if you develop any symptoms that are concerning to you. Prescriptions: No Action fluticasone propionate 50 mcg/actuation spray,suspension 1 spray intranasal BID 30 Days Qty: 16 3RF valsartan 40 mg tablet 40 mg PO DAILY Qty: 90 3RF acetaminophen 325 mg Tablet 325 mg PO QID PRN (Reason: Pain) ondansetron HCl [Zofran] 4 mg tablet 4 mg PO Q8H PRN (Reason: nausea and vomiting) Qty: 14 0RF cyanocobalamin (vitamin B-12) [Vitamin B-12] 1,000 mcg Tablet Extended Release 1,000 mcg PO DAILY Qty: 60 3RF ondansetron 4 mg tablet,disintegrating 4 mg PO Q8H PRN (Reason: nausea and vomiting) Qty: 20 0RF alprazolam 0.25 mg tablet 0.25 mg PO TID 30 Days Qty: 90 1RF ammonium lactate 12 % cream 1 appl topical DAILY omeprazole 20 mg capsule,delayed release(DR/EC) 20 mg PO DAILY PRN (Reason: gi upset)
[2022-02-25] MEDS: 0.9 % Sodium Chloride 1,000 ML 999 ML IV (10:31)
[2022-02-25 10:34] VITALS: BP 162/82; PULSE 89; RESP 18; O2SAT 97
[2022-02-25 10:35] LABS: MANUAL DIFF FLAG NO
[2022-02-25 10:38] LABS: Basophils Percent Auto 0.6 % (0-2); Eosinophils Absolute Auto 0.1 X10*3/uL (0.0-0.4); Eosinophils Percent Auto 2.8 % (0-4); Hematocrit 35.1 % (37.0-47.0); Hemoglobin 11.2 g/dl (12.0-16.0); Imm Gran Abs Auto 0.01 X10*3/uL (0.00-0.03); Imm Gran Pct Auto 0.3 % (0.0-0.4); Lymphocytes Absolute Auto 0.9 X10*3/uL (1.2-4.9); Lymphocytes Percent Auto 25.6 % (20-40); Mean Corpuscular HGB Conc 31.9 g/dl (31.0-35.0); Mean Corpuscular Hemoglobin 29.3 pg (27.0-33.0); Mean Corpuscular Volume 91.9 fL (80.0-98.0); Mean Platelet Volume 11.4 fL (9.4-12.3); Monocytes Absolute Auto 0.2 X10*3/uL (0.1-1.2); Monocytes Percent Auto 6.3 % (2-11); Neutrophils Absolute Auto 2.3 x10*3/uL (2.0-8.3); Neutrophils Percent Auto 64.4 % (45-73); Platelet Count 114 X10*3/uL (160-400); Red Blood Count 3.82 X10*6/uL (4.20-5.50); Red Cell Distribution Width 13.3 % (11.0-16.0); White Blood Count 3.5 X10*3/uL (4.8-10.8)
[2022-02-25] MEDS: ondansetron HCL 4 MG/2 ML VIAL IVPUSH (10:40)
[2022-02-25] MEDS: Ketorolac Tromethamine 15 MG/ML VIAL IVPUSH (10:40)
[2022-02-25 11:01] LABS: Alanine Aminotransferase 10 U/L (0-31); Albumin Level 4.1 g/dL (3.5-5.0); Alkaline Phosphatase 100 U/L (39-117); Anion Gap 10 (12-20); Aspartate Amino Transferase 18 U/L (5-31); Bilirubin Total 0.6 mg/dL (0.0-1.0); Blood Urea Nitrogen 13 mg/dL (9-16); Calcium 9.1 mg/dL (8.4-10.2); Carbon Dioxide 30 mmol/L (22-29); Chloride 104 mmol/L (96-108); Creatinine Clr Calc Pharmacy 64.2; Estimated Glomerular Filt Rate > 60; Glucose Random 101 mg/dL (60-115); Lipase 14 U/L (8-78); Sodium 140 mmol/L (135-145); Total Protein 6.7 g/dL (6.5-8.0)
[2022-02-25 11:19] LABS: Appearance Urine CLEAR; Color Urine STRAW; Glucose Urine UA NEG (NEG); Leukocyte Esterase Urine NEG (NEG); Nitrite Urine NEG (NEG); Urine Blood NEG (NEG); Urine Ketones NEG (NEG); Urine Protein NEG (NEG-TRACE)
[2022-02-25 12:01] VITALS: BP 163/77; PULSE 86; RESP 18; O2SAT 95
[2022-02-25] MEDS: Magnesium Hydrox/Alum Hydrox 30 ML ORAL.SUSP PO (13:17)
== END 2022-02-25 13:40 | disposition home or self-care (01) ==
PROVIDERS: Emergency Provider Emergency Medicine Emergency Medical Services; PCP Physician Assistant
DX: R10.32 Left lower quadrant pain (principal); K59.09 Other constipation; Z87.891 Personal history of nicotine dependence; Z79.899 Other long term (current) drug therapy
CPT/HCPCS: 36415; 74176; 80053; 81003; 83690; 85025; 96361; 96374; 96375; 99284; 99285; J1885; J2405

== ENCOUNTER 2022-02-26 11:47 | Emergency (ER) | payer MEDICARE, OTHER, SELFPAY ==
--- NOTE | ~2022-02-26 | CT_ITS ---
EXAMINATION: CT ABDOMEN AND PELVIS WITHOUT CONTRAST CLINICAL INFORMATION: Left lower quadrant abdominal pain. COMPARISON: CT abdomen without contrast on 02/01/2022, 02/25/2022 and 06/21/2021. TECHNIQUE: Multidetector volumetric imaging was performed from the superior aspect of the liver through the pubic symphysis. Sagittal and coronal reformatted images were obtained on the technologist's workstation. This CT examination was performed using dose optimization techniques as appropriate, variously including the following: *Automated exposure control. *Adjustment of mA and/or kV according to patient size (this includes techniques or standardized protocols for targeted exams where dose is matched to indication/reason for exam; i.e. extremities or head). *Use of iterative reconstruction technique. DLP: 640 mGy-cm FINDINGS: LUNG BASES: The visualized lung bases are unremarkable. LIVER, GALLBLADDER, AND BILIARY TREE: A small cyst at the liver dome is stable. The liver is otherwise unremarkable and unchanged from the recent comparison. The gallbladder is unremarkable with no evidence of radiopaque gallstones, gallbladder wall thickening, or obvious pericholecystic inflammatory changes. PANCREAS: Unremarkable. SPLEEN: Unremarkable. ADRENAL GLANDS: Unremarkable. KIDNEYS AND URETERS: Normal in size. A 3 mm stone is present within the upper pole of the left kidney. No hydronephrosis. BLADDER: Unremarkable. GASTROINTESTINAL TRACT: Decompressed stomach. Normal caliber loops of small bowel. No evidence of obstruction. Sigmoid colonic diverticulosis without evidence of acute diverticulitis. No free air or free fluid. ABDOMINAL WALL: No significant hernia is appreciated. LYMPH NODES: There is subtle stranding of the mid abdominal mesentery as well as subtle stranding around the superior mesenteric artery as it passes behind the pancreas. This finding has not significantly changed when compared to a CTs on 02/25/2022 and 02/01/2022 but appears more conspicuous when compared when compared to CT imaging in 2020. (Reference image series 3 image 26). VASCULAR: Stable infrarenal abdominal aortic aneurysm measuring up to 3 cm. Heavy aortic atherosclerosis. PELVIC VISCERA: Unremarkable. OSSEOUS STRUCTURES: Stable multilevel degenerative changes. CT/CT abdomen pelvis wo con IMPRESSION: 1. There is subtle stranding of the mid abdominal mesentery as well as subtle stranding around the superior mesenteric artery as it passes behind the pancreas. This finding has not significantly changed when compared to CTs on 02/25/2022 and 02/01/2022 but appears more conspicuous when compared to CT imaging in 2020. Given the patient's repeated imaging for abdominal pain, findings could reflect mesenteric adenitis. Alternatively, consider further workup to exclude pancreatitis or possibly vasculitis (ESR, CRP, etc.) 2. Diverticulosis without evidence of acute diverticulitis. 3. No significant change from CT performed on 02/25/2022. Fleischner guidelines were followed.
[2022-02-26 11:52] VITALS: BP 188/109; PULSE 97; RESP 18; TEMP 36.8; O2SAT 100; BMI 30.4
[2022-02-26 14:17] LABS: MANUAL DIFF FLAG NO
[2022-02-26 14:31] LABS: Basophils Percent Auto 0.6 % (0-2); Eosinophils Absolute Auto 0.1 X10*3/uL (0.0-0.4); Eosinophils Percent Auto 1.7 % (0-4); Hematocrit 34.5 % (37.0-47.0); Hemoglobin 11.1 g/dl (12.0-16.0); Lymphocytes Absolute Auto 0.9 X10*3/uL (1.2-4.9); Lymphocytes Percent Auto 26.8 % (20-40); Mean Corpuscular HGB Conc 32.2 g/dl (31.0-35.0); Mean Corpuscular Hemoglobin 29.8 pg (27.0-33.0); Mean Corpuscular Volume 92.5 fL (80.0-98.0); Mean Platelet Volume 11.5 fL (9.4-12.3); Monocytes Absolute Auto 0.2 X10*3/uL (0.1-1.2); Monocytes Percent Auto 5.5 % (2-11); Neutrophils Absolute Auto 2.2 x10*3/uL (2.0-8.3); Neutrophils Percent Auto 65.4 % (45-73); Platelet Count 117 X10*3/uL (160-400); Red Blood Count 3.73 X10*6/uL (4.20-5.50); Red Cell Distribution Width 13.5 % (11.0-16.0); White Blood Count 3.4 X10*3/uL (4.8-10.8)
[2022-02-26 14:37] LABS: Appearance Urine CLEAR; Color Urine YELLOW; Glucose Urine UA NEG (NEG); Leukocyte Esterase Urine NEG (NEG); Nitrite Urine NEG (NEG); Specific Gravity - Urine 1.015 (1.005-1.025); Urine Blood NEG (NEG); Urine Ketones NEG (NEG); Urine Protein NEG (NEG-TRACE)
[2022-02-26 14:38] LABS: Alanine Aminotransferase 10 U/L (0-31); Albumin Level 4.5 g/dL (3.5-5.0); Alkaline Phosphatase 104 U/L (39-117); Anion Gap 10 (12-20); Aspartate Amino Transferase 18 U/L (5-31); Bilirubin Direct 0.3 mg/dL (0.0-0.5); Bilirubin Total 0.5 mg/dL (0.0-1.0); Blood Urea Nitrogen 11 mg/dL (9-16); Calcium 9.5 mg/dL (8.4-10.2); Carbon Dioxide 31 mmol/L (22-29); Chloride 103 mmol/L (96-108); Creatinine Clr Calc Pharmacy 63.2; Estimated Glomerular Filt Rate > 60; Glucose Random 97 mg/dL (60-115); Potassium 4.4 mmol/L (3.3-5.1); Sodium 140 mmol/L (135-145); Total Protein 7.4 g/dL (6.5-8.0)
--- NOTE | 2022-02-26 15:21 | ED.ABDPAIN ---
HPI - Abdominal Pain General Chief Complaint: Abdominal Pain Stated Complaint: Abd pain Time Seen by Provider: 02/26/22 15:11 Source: patient Mode of arrival: ambulatory Limitations: no limitations History of Present Illness HPI narrative: 81-year-old female past medical history of diverticulitis chronic constipation presents today with worsening constipation , abdominal discomfort worsening over the last 3 days. Last bowel movement was 3 days ago, she reports this bowel movement was large pellets negative for blood. Patient reports a persistent pain in the abdomen lower left quadrant that radiates slightly to the back this is a change from her symptoms yesterday which were intermittent in nature. Pain is reported as 8/10 with nothing making the symptoms better or worse. Patient reports taking dulcolax and MiraLax at 10:00 this morning. Patient also reports being discharged from the emergency department last night around 18:00. Pertinent past history: none, constipation and diverticulitis Onset (ago): day(s) (3) Pain Consistency: constant Location: none and LLQ Severity: severe Pain scale (0-10): 8 Quality: cramping and dull Radiation: L flank Exacerbating factors: nothing Relieving factors: nothing Associated symptoms: constipation Related Data Home Medications Medication Instructions Recorded Confirmed omeprazole 20 mg capsule,delayed 20 mg PO DAILY PRN gi upset 08/07/20 02/15/22 release acetaminophen 325 mg tablet 325 mg PO QID PRN Pain 06/21/21 02/15/22 ammonium lactate 12 % topical cream 1 appl topical DAILY 11/24/21 02/15/22 Previous Rx's Medication Instructions Recorded alprazolam 0.25 mg tablet 0.25 mg PO TID Anxiety 30 days #90 07/22/21 tabs ondansetron HCl 4 mg tablet 4 mg PO Q8H PRN nausea and 08/16/21 (Zofran) vomiting #14 tabs cyanocobalamin (vitamin B-12) 1,000 mcg PO DAILY #60 tabs 08/17/21 1,000 mcg tablet,extended release (Vitamin B-12 ER) fluticasone propionate 50 1 spray intranasal BID 30 days #16 11/08/21 mcg/actuation nasal grams spray,suspension ondansetron 4 mg disintegrating 4 mg PO Q8H PRN nausea and 02/01/22 tablet vomiting #20 tabs valsartan 40 mg tablet 40 mg PO DAILY #90 tabs 02/07/22 Allergies Allergy/AdvReac Type Severity Reaction Status Date / Time Sulfa (Sulfonamide Allergy Intermediate RASH Verified 02/15/22 09:58 Antibiotics) amoxicillin [From AUGMENTIN] Allergy Unknown PER H&P Verified 02/15/22 09:58 clavulanic acid Allergy Unknown PER H&P Verified 02/15/22 09:58 [From AUGMENTIN] garlic [GARLIC] Allergy Unknown PER H&P Verified 02/15/22 09:58 metronidazole [From FLAGYL] Allergy Unknown OCULAR Verified 02/15/22 09:58 MIGRAINES penicillamine Allergy Unknown Unknown Verified 02/15/22 09:58 lisinopril AdvReac Intermediate Cough Verified 02/15/22 09:58 nitrofurantoin AdvReac Mild GI side Verified 02/15/22 09:58 effects environmental Allergy Unknown Unknown Uncoded 01/28/22 11:50 flagyl Allergy Unknown Unknown Uncoded 01/28/22 11:50 From KEFLEX Allergy Unknown RASH Uncoded 01/28/22 11:50 Metoprolol Tartrate Allergy Unknown Unknown Uncoded 01/28/22 11:50 Sulfacet-R Allergy Unknown Unknown Uncoded 01/28/22 11:50 Review of Systems Review of Systems Constitutional : No Weight loss, No Fever, No Chills, No Fatigue, No Malaise ENT/Mouth : No sore throat, No Rhinorrhea Eyes: No Eye Pain, No Swelling, No Redness Cardiovascular : No Chest Pain, No SOB, No Dyspnea on Exertion, No Orthopnea, No Edema, No Palpitations Respiratory : No Cough, No Sputum, No Wheezing Gastrointestinal : + Abdominal Pain in LLQNo Nausea, No Vomiting, No Diarrhea, + Constipation, No Hematochezia, No Melena Genitourinary : No Dysuria, No Urinary Frequency, No Hematuria, Musculoskeletal : No joint pain, No Myalgias, No Joint Swelling Skin : No Skin Lesions, No rash Neuro : No Weakness, No Numbness, No Dizziness, No Headache Psych : No Anxiety/Panic, No Depression All other systems reviewed and are negative Yes all other systems are reviewed and are negative Constitutional: Reports as per [facility] Past Medical History Attestation statement: The following information was validated with the patient. Source: old records reviewed and nursing notes reviewed Surgical History History of appendectomy History of tonsillectomy Family History Family History Father No problems noted. Mother No problems noted. Social History Social History Household Members: Children Housing: House Are you a primary spiritual care coordinator to a significant other at home: No Do you presently have visiting nurse or other home services: No Alcohol intake: former Patient Tobacco Use Status: Former Tobacco user e-Cigarette/Vaping Use: Never Used Second Hand Smoke Exposure: No Use of substances other than those prescribed or required for medical reasons: No Advance Directives: No Advance Directives Information Provided: No service: No Current occupational status: retired Cognitive needs: No Hearing needs: No Vision needs: Yes (glasses) Physical Exam ED Vital Signs: Vital Signs - 24 hr 02/26/22 11:52 02/26/22 16:23 02/26/22 18:06 Temperature 98.3 F 98.1 F Pulse Rate 97 88 82 Respiratory Rate 18 16 18 Blood Pressure 188/109 H 183/94 H 165/82 H Pulse Oximetry 100 96 97 Oxygen Delivery Method Room Air Room Air Room Air BMI result Body Mass Index 30.4 BP noted to be elevated, likely secondary to paina nd discomfort Appearance: Anxious, Alert.? Oriented X3.? No acute distress.? Head: Normocephalic, atraumatic, no step-offs or deformities Eyes: Pupils equal, round and reactive to light.? ENT: Pharynx normal.? Neck: Normal inspection.? Neck supple.? CVS: +Systolic murmer, Normal heart rate and rhythm.? Pulses normal.? Respiratory: No respiratory distress.? Breath sounds normal.? Abdomen: Soft and + slightly tender LLQ .?+BS in all 4 quadrants. Skin: Skin warm and dry.? Normal skin color.? Normal skin turgor.? Extremities: No lower extremity edema.? No calf ttp. 5/5 strength to bilateral upper and lower extremities Back: No midline tenderness, no C-spine tenderness, full range of motion, no CVA tenderness bilaterally Neuro: Oriented X 3.? No motor deficit.? No sensory deficit. CN 2-12 intact Course Reevaluation(s) Reevaluation #1: CBC with a pancytopenia that appears to be around patient's baseline. Chemistry with no acute electrolyte abnormalities requiring intervention. CRP negative. UA clean. CT with no acute findings, they did mention mesenteric adenitis however unlikely. Likely abdominal pain secondary to constipation. Patient waiting for soapsuds enema. Report given to Tesha Jin Time: 21:17 MDM - Abdominal Pain MDM Narrative Medical decision making narrative: 1530 81-year-old female presents 3 days of constipation with pain in the LLQ that changed from intermittent to consistent in nature starting this morning Physical exam significant for systolic murmur, left lower quadrant tenderness, negative CVA tenderness. Likely constipation, unlikely AAA or acute abdomen. will order CT abdomen and basic labs to rule out acute diverticulitis Medical Records Attestation: I reviewed the patient's medical records. Lab Data Attestation: I reviewed the patient's lab results. Result diagrams: 02/26/22 14:12 02/26/22 14:12 Labs: Lab Results 02/26/22 02/26/22 02/26/22 Range/Units 14:12 14:12 14:12 WBC 3.4 L (4.8-10.8) X10*3/uL RBC 3.73 L (4.20-5.50) X10*6/uL Hgb 11.1 L (12.0-16.0) g/dl Hct 34.5 L (37.0-47.0) % MCV 92.5 (80.0-98.0) fL MCH 29.8 (27.0-33.0) pg MCHC 32.2 (31.0-35.0) g/dl RDW 13.5 (11.0-16.0) % Plt Count 117 L (160-400) X10*3/uL MPV 11.5 (9.4-12.3) fL Immature Gran % (Auto) 0.0 (0.0-0.4) % Neut % (Auto) 65.4 (45-73) % Lymph % (Auto) 26.8 (20-40) % [place] % (Auto) 5.5 (2-11) % Eos % (Auto) 1.7 (0-4) % Baso % (Auto) 0.6 (0-2) % Lymph # (Auto) 0.9 L (1.2-4.9) X10*3/uL [place] # (Auto) 0.2 (0.1-1.2) X10*3/uL Eos # (Auto) 0.1 (0.0-0.4) X10*3/uL Baso # (Auto) 0.0 (0.0-0.2) X10*3/uL Abs Immat Gran (auto) 0.00 (0.00-0.03) X10*3/uL Absolute Neuts (auto) 2.2 (2.0-8.3) x10*3/uL Absolute Nucleated RBC 0.000 (0.0-0.012) X10*3/uL Nucleated RBC % (auto) 0.0 (0.0-0.2) /100WBC Sodium 140 (135-145) mmol/L Potassium 4.4 (3.3-5.1) mmol/L Chloride 103 (96-108) mmol/L Carbon Dioxide 31 H (22-29) mmol/L Anion Gap 10 L (12-20) BUN 11 (9-16) mg/dL Creatinine 0.77 (0.5-1.4) mg/dL Estim Creat Clear Calc 63.2 Estimated GFR > 60 Random Glucose 97 (60-115) mg/dL Calcium 9.5 (8.4-10.2) mg/dL Total Bilirubin 0.5 (0.0-1.0) mg/dL Direct Bilirubin 0.3 (0.0-0.5) mg/dL AST 18 (5-31) U/L ALT 10 (0-31) U/L Alkaline Phosphatase 104 (39-117) U/L C-Reactive Protein (< or = 0.50) mg/dL Total Protein 7.4 (6.5-8.0) g/dL Albumin 4.5 (3.5-5.0) g/dL Lipase 10 (8-78) U/L Urine Color YELLOW Urine Appearance CLEAR Urine pH 6.0 (5.0-8.0) Ur Specific [place] 1.015 (1.005-1.025) Urine Protein NEG (NEG-TRACE) MG/DL Urine Glucose (UA) NEG (NEG) MG/DL Urine Ketones NEG (NEG) MG/DL Urine Blood NEG (NEG) Urine Nitrite NEG (NEG) Ur Leukocyte Esterase NEG (NEG) 02/26/22 Range/Units 19:19 WBC (4.8-10.8) X10*3/uL RBC (4.20-5.50) X10*6/uL Hgb (12.0-16.0) g/dl Hct (37.0-47.0) % MCV (80.0-98.0) fL MCH (27.0-33.0) pg MCHC (31.0-35.0) g/dl RDW (11.0-16.0) % Plt Count (160-400) X10*3/uL MPV (9.4-12.3) fL Immature Gran % (Auto) (0.0-0.4) % Neut % (Auto) (45-73) % Lymph % (Auto) (20-40) % [place] % (Auto) (2-11) % Eos % (Auto) (0-4) % Baso % (Auto) (0-2) % Lymph # (Auto) (1.2-4.9) X10*3/uL [place] # (Auto) (0.1-1.2) X10*3/uL Eos # (Auto) (0.0-0.4) X10*3/uL Baso # (Auto) (0.0-0.2) X10*3/uL Abs Immat Gran (auto) (0.00-0.03) X10*3/uL Absolute Neuts (auto) (2.0-8.3) x10*3/uL Absolute Nucleated RBC (0.0-0.012) X10*3/uL Nucleated RBC % (auto) (0.0-0.2) /100WBC Sodium (135-145) mmol/L Potassium (3.3-5.1) mmol/L Chloride (96-108) mmol/L Carbon Dioxide (22-29) mmol/L Anion Gap (12-20) BUN (9-16) mg/dL Creatinine (0.5-1.4) mg/dL Estim Creat Clear Calc Estimated GFR Random Glucose (60-115) mg/dL Calcium (8.4-10.2) mg/dL Total Bilirubin (0.0-1.0) mg/dL Direct Bilirubin (0.0-0.5) mg/dL AST (5-31) U/L ALT (0-31) U/L Alkaline Phosphatase (39-117) U/L C-Reactive Protein 0.04 (< or = 0.50) mg/dL Total Protein (6.5-8.0) g/dL Albumin (3.5-5.0) g/dL Lipase (8-78) U/L Urine Color Urine Appearance Urine pH (5.0-8.0) Ur Specific [place] (1.005-1.025) Urine Protein (NEG-TRACE) MG/DL Urine Glucose (UA) (NEG) MG/DL Urine Ketones (NEG) MG/DL Urine Blood (NEG) Urine Nitrite (NEG) Ur Leukocyte Esterase (NEG) Critical Care Time Critical Care Time Critical Care Time: No Discharge Plan Discharge Clinical Impression: Abdominal pain, Constipation Patient Disposition: Home, Self-Care Additional Instructions: Take your medications as prescribed. If you were prescribed antibiotics today, it is important that you take your medication to their entirety, do not skip any doses, do not finish them early. Follow-up with your primary care provider this week. Return to the emergency department with new or worsening symptoms. Such as fevers, chills, chest pain, shortness of breath, nausea, vomiting, dizziness, headache, vision changes, lethargy In case of emergency call 911 Please is increase diet and your fiber. Drink plenty of fluids. Follow up with GI as necessary. Continue taking your medications for constipation as prescribed yesterday. Prescriptions: No Action fluticasone propionate 50 mcg/actuation spray,suspension 1 spray intranasal BID 30 Days Qty: 16 3RF valsartan 40 mg tablet 40 mg PO DAILY Qty: 90 3RF acetaminophen 325 mg Tablet 325 mg PO QID PRN (Reason: Pain) ondansetron HCl [Zofran] 4 mg tablet 4 mg PO Q8H PRN (Reason: nausea and vomiting) Qty: 14 0RF cyanocobalamin (vitamin B-12) [Vitamin B-12] 1,000 mcg Tablet Extended Release 1,000 mcg PO DAILY Qty: 60 3RF ondansetron 4 mg tablet,disintegrating 4 mg PO Q8H PRN (Reason: nausea and vomiting) Qty: 20 0RF alprazolam 0.25 mg tablet 0.25 mg PO TID 30 Days Qty: 90 1RF ammonium lactate 12 % cream 1 appl topical DAILY omeprazole 20 mg capsule,delayed release(DR/EC) 20 mg PO DAILY PRN (Reason: gi upset) Referrals: Nick Gomez PA-C [Primary Care Provider] - 2 days Odette Stallings MD [Physician] - 1 week
[2022-02-26 15:47] LABS: Lipase 10 U/L (8-78)
[2022-02-26 16:23] VITALS: BP 183/94; PULSE 88; RESP 16; O2SAT 96
--- NOTE | 2022-02-26 16:57 | PC.NURSE ---
pt diff stick, multiple attempts made
[2022-02-26] MEDS: 0.9 % Sodium Chloride 1,000 ML 999 ML IV (17:16)
[2022-02-26 18:06] VITALS: BP 165/82; PULSE 82; RESP 18; TEMP 36.7; O2SAT 97
[2022-02-26 19:37] LABS: C Reactive Protein 0.04 mg/dL (< or = 0.50)
[2022-02-26 21:19] LABS: Erythrocyte Sedimentation Rate 17 MM/HR (0-20)
[2022-02-26 21:37] VITALS: BP 163/91; PULSE 86; RESP 16; TEMP 37; O2SAT 92
[2022-02-26] MEDS: Mineral OiL enema 133 ML ENEMA PR (21:40)
[2022-02-27] MEDS: Magnesium Hydrox/Alum Hydrox 30 ML ORAL.SUSP 15 ML PO (01:26)
[2022-02-27 02:28] VITALS: BP 144/92; PULSE 88; RESP 16; O2SAT 97
== END 2022-02-27 02:50 | disposition home or self-care (01) ==
PROVIDERS: Physician Assistant; Emergency Provider Emergency Medicine Emergency Medical Services; PCP Physician Assistant
DX: K59.00 Constipation, unspecified (principal); R10.32 Left lower quadrant pain; Z79.899 Other long term (current) drug therapy; Z87.891 Personal history of nicotine dependence
CPT/HCPCS: 36415; 74176; 80053; 81003; 82248; 83690; 85025; 85652; 86140; 96360; 99284

== ENCOUNTER 2022-02-28 13:00 | Outpatient (RCR) | payer MEDICARE, OTHER, SELFPAY ==
--- NOTE | 2022-01-26 15:07 | MHC.PT.EP ---
[facility] [place] Office [place] Office [place] Office [address] [phone] F: [phone] F: [phone] F: [phone] F: [phone] Physical Therapy Plan of Care Date of Evaluation: Date of Surgery: Diagnosis: lower leg pain Assessment: Patient is an 81 year old R handed female who presents with s/s consistent with lower leg pain. She notes this started gradually and has worsened over time. 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 Patient past medical history includes aortic stenosis and a history of falls. Current impairments include pain, posture, ROM, strength, balance, activity tolerance and functional mobility. Functional limitations include decreased ability to sit <> stand, walk, negotiate stairs, and be active in the community. Patient is motivated with good rehab potential. Skilled PT will address impairments and functional limitations in order to achieve goals. Frequency and Duration: The patient will be seen 2x/week for 5 weeks Short Term Goals: I with HEP - 2 weeks Able to walk 4 minutes without increased pain - 3 weeks min tightness b/l gastroc - 3 weeks Hospital Housekeeper Goals: LE strength 4-/5 grossly - 5 weeks LEFS 58/80 - 5 weeks SLB 5 seconds - 5 weeks Treatment Plan: Modalities to reduce pain, spasms and effusion. Manual therapy to restore motion and function. Therapeutic exercise to improve strength and flexibility. Neuromuscular re-education for posture and balance. Therapeutic activities to return to functional activities of daily living. Electronically signed by: Jeronimo Renee, PT Please sign and return to therapist. Thank you for your referral.
--- NOTE | 2022-05-26 11:03 | MHC.PT.DC ---
[facility] [place] Office [place] Office [place] Office [address] Bernardino Torres [address] [phone] F: [phone] F: [phone] F: [phone] F: [phone] Physical Therapy Discharge Report Diagnosis: lower leg pain Date of Surgery: Date of Evaluation: 01/26/22 Date of Discharge: 03/07/22 Treatments to Date: 5 Cancellations to Date: No Shows to Date: Discharge Status: Independent with HEP Patient Elected to Stop Discharge Summary: 02/28/22: pt had to go to the ED this weekend so we held on progression today. we will update HEP NV. 02/23/22: no adverse reactions from above program. issued upated HEP. we will assess for compliance and response NV. 02/17/22: pt requires significant directions and encouragement during her appts. requires significant cuing for mini squats/sit<> stands 02/10/22: pt progressed with strength ex and balance. no adverse reactions. requires significant time to respond to questions. being worked up for diverticulitis. Patient is an 81 year old R handed female who presents with s/s consistent with lower leg pain. She notes this started gradually and has worsened over time. 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 Patient past medical history includes aortic stenosis and a history of falls. Current impairments include pain, posture, ROM, strength, balance, activity tolerance and functional mobility. Functional limitations include decreased ability to sit <> stand, walk, negotiate stairs, and be active in the community. Patient is motivated with good rehab potential. Skilled PT will address impairments and functional limitations in order to achieve goals. Electronically signed by: Jeronimo Renee, PT Please sign and return to therapist. Thank you for your referral.
== END 2022-05-26 11:04 | disposition home or self-care (01) ==
LOC: HO.PTCHIC 13:00
PROVIDERS: Visit Provider Physician Assistant
DX: M79.661 Pain in right lower leg (principal); M79.662 Pain in left lower leg
CPT/HCPCS: 97110; 97112; 97162

== ENCOUNTER 2022-03-13 11:53 | Emergency (ER) | payer MEDICARE, OTHER, SELFPAY ==
[2022-03-13 12:25] VITALS: BP 151/85; PULSE 94; RESP 16; TEMP 36.5; O2SAT 100; BMI 30.4
[2022-03-13 13:14] LABS: Hemoglobin 11.5 g/dl (12.0-16.0); Mean Corpuscular HGB Conc 31.9 g/dl (31.0-35.0); Mean Corpuscular Hemoglobin 29.6 pg (27.0-33.0); Mean Corpuscular Volume 92.5 fL (80.0-98.0); Mean Platelet Volume 11.3 fL (9.4-12.3); Platelet Count 131 X10*3/uL (160-400); Red Blood Count 3.89 X10*6/uL (4.20-5.50); Red Cell Distribution Width 13.6 % (11.0-16.0); White Blood Count 3.4 X10*3/uL (4.8-10.8)
[2022-03-13 13:16] LABS: Prothrombin Time 11.1 SEC (10.0-13.1)
[2022-03-13 13:37] LABS: Alanine Aminotransferase 15 U/L (0-31); Albumin Level 4.5 g/dL (3.5-5.0); Alkaline Phosphatase 109 U/L (39-117); Anion Gap 10 (12-20); Aspartate Amino Transferase 20 U/L (5-31); Bilirubin Total 0.3 mg/dL (0.0-1.0); Blood Urea Nitrogen 12 mg/dL (9-16); Calcium 9.4 mg/dL (8.4-10.2); Carbon Dioxide 30 mmol/L (22-29); Chloride 103 mmol/L (96-108); Estimated Glomerular Filt Rate > 60; Glucose Random 105 mg/dL (60-115); Potassium 4.2 mmol/L (3.3-5.1); Sodium 139 mmol/L (135-145); Total Protein 7.4 g/dL (6.5-8.0)
--- NOTE | 2022-03-13 14:26 | PC.NURSE ---
Pt states that she had an enema done 2 weeks ago, and she started to notice some bruising on her left upper extremity. +CSM to fingers. denies numbness and tingling to that extremity. Pt able to move arm. just states that it is tender to touch.
--- NOTE | 2022-03-13 14:41 | ED.GENADULT ---
HPI - General Adult General Chief complaint: General Medical Stated complaint: rash painfull diarrhea Time Seen by Provider: 03/13/22 14:18 Source: patient, RN notes reviewed and old records reviewed Mode of arrival: EMS Limitations: no limitations History of Present Illness HPI narrative: This is a 81-year-old female, with a past medical history of TIA, hypertension, aortic stenosis, anger and who presents today with complaints of left arm pain and skin changes x4 days. Patient denies any recent trauma or injury, however she noticed the pain when she was taking her blood pressure on her left arm, and also noticed some bruising on her left upper arm. She states the pain worsens with palpation. She does report that she had her blood drawn in the left arm approximately 2 weeks ago. She also reported that she had 1 episode of diarrhea, she does report that she had a rectal enema 2 weeks ago. She states that she recently finished a course of azithromycin 1 week ago. She denies any bloody, black, or mucus like stool. She denies any abdominal pain, nausea, vomiting. She denies any chest pain, palpitations, shortness of breath. She denies any other complaints or concerns at this time. Onset (ago): day(s) Location: upper extremity Radiation: non-radiation Severity: moderate Severity scale (1-10): 5 Quality: aching Pain Consistency: intermittent Relieving factors: none Exacerbating factors: none Associated symptoms: denies other symptoms Treatments prior to arrival: none Related Data Home Medications Medication Instructions Recorded Confirmed omeprazole 20 mg capsule,delayed 20 mg PO DAILY PRN gi upset 08/07/20 02/28/22 release acetaminophen 325 mg tablet 325 mg PO QID PRN Pain 06/21/21 02/28/22 ammonium lactate 12 % topical cream 1 appl topical DAILY 11/24/21 02/28/22 Previous Rx's Medication Instructions Recorded fluticasone propionate 50 1 spray intranasal BID 30 days #16 11/08/21 mcg/actuation nasal grams spray,suspension ondansetron 4 mg disintegrating 4 mg PO Q8H PRN nausea and 02/01/22 tablet vomiting #20 tabs valsartan 40 mg tablet 40 mg PO DAILY #90 tabs 02/07/22 alprazolam 0.25 mg tablet 0.25 mg PO TID Anxiety 30 days #90 02/28/22 tabs Allergies Allergy/AdvReac Type Severity Reaction Status Date / Time Sulfa (Sulfonamide Allergy Intermediate RASH Verified 03/12/22 11:54 Antibiotics) amoxicillin [From AUGMENTIN] Allergy Unknown PER H&P Verified 03/12/22 11:54 clavulanic acid Allergy Unknown PER H&P Verified 03/12/22 11:54 [From AUGMENTIN] garlic [GARLIC] Allergy Unknown PER H&P Verified 03/12/22 11:54 metronidazole [From FLAGYL] Allergy Unknown OCULAR Verified 03/12/22 11:54 MIGRAINES penicillamine Allergy Unknown Unknown Verified 03/12/22 11:54 lisinopril AdvReac Intermediate Cough Verified 03/12/22 11:54 nitrofurantoin AdvReac Mild GI side Verified 03/12/22 11:54 effects environmental Allergy Unknown Unknown Uncoded 03/12/22 11:54 flagyl Allergy Unknown Unknown Uncoded 03/12/22 11:54 From KEFLEX Allergy Unknown RASH Uncoded 03/12/22 11:54 Metoprolol Tartrate Allergy Unknown Unknown Uncoded 03/12/22 11:54 Sulfacet-R Allergy Unknown Unknown Uncoded 03/12/22 11:54 Review of Systems Review of Systems: Constitutional: No Fever, No Chills ENT/Mouth: No sore throat, No Rhinorrhea, No Swallowing Difficulty Eyes: No Eye Pain, No Swelling, No Redness Cardiovascular: No Chest Pain, No SOB, No Orthopnea, No Edema Respiratory: No Cough, No Sputum, No Wheezing, No dyspnea Gastrointestinal: No Nausea, No Vomiting, No Diarrhea, No abdominal Pain, No Hematochezia, No Melena Genitourinary: No Dysuria, No Urinary Frequency, No Hematuria Musculoskeletal: +Left arm pain, No joint pain, No Myalgias Skin: + Left upper arm brusing, No Skin Lesions, No rash Neuro: No Weakness, No Numbness, No Dizziness, No Headache Psych: No Anxiety/Panic, No Depression Heme/Lymph: + Bruising, No Lymphadenopathy Endocrine: No Polyuria, No Polydipsia PMFSH Past Medical History Medical History (Updated 03/13/22 @ 15:11 by ROMAINE Leigh) Anxiety Diverticulitis GERD (gastroesophageal reflux disease) Heart murmur Irritable bowel Surgical History History of appendectomy History of tonsillectomy Family History Family History Father No problems noted. Mother No problems noted. Social History Social History Household Members: Children Housing: House Are you a primary dog day care attendant to a significant other at home: No Do you presently have visiting nurse or other home services: No Alcohol intake: former Patient Tobacco Use Status: Former Tobacco user e-Cigarette/Vaping Use: Never Used Second Hand Smoke Exposure: No Advance Directives: No Advance Directives Information Provided: Yes service: No Current occupational status: retired Cognitive needs: No Hearing needs: No Vision needs: Yes (glasses) Physical Exam ED Vital Signs: Vital Signs - 24 hr 03/13/22 12:25 Temperature 97.7 F Pulse Rate 94 Respiratory Rate 16 Blood Pressure 151/85 H Pulse Oximetry 100 Oxygen Delivery Method Room Air BMI result Body Mass Index 30.4 Appearance: Alert. Oriented X3. No acute distress. Eyes: Pupils equal, round and reactive to light. EOM intact ENT: Pharynx normal. Nonerythematous, nonbulging tonsils. Uvula is midline. Airway patent. Neck: Normal inspection. Neck supple. CVS: High-pitched, crescendo decrescendo mid systolic 3/6 murmur heard best at the right upper sternal border. Normal heart rate and rhythm. Pulses normal. Respiratory: Lungs clear to auscultation bilaterally, no wheezes, rales, or rhonchi. No respiratory distress. Breath sounds normal. Abdomen: Soft and nontender. +BS x4 Skin: Skin warm and dry. Normal skin color. Normal skin turgor. No rashes. Extremities: Left upper extremity with tenderness to palpation on the triceps with scant, healing areas of ecchymosis. Neuro: Oriented X 3. No motor deficit. No sensory deficits. Course Course Course Narrative: This is a [id number]-female presenting today with complaints of left upper arm pain x 4 days. She noticed the pain will taking her blood pressure on her left upper arm. She admits that about 2 weeks ago she had her blood drawn and had a tourniquet on her left arm. The pain that she is experiencing is in the location and a tourniquet would be placed. There are no palpable masses, erythema, edema, or warmth. Labs were reassuring, her platelet count is 131 however history of pancytopenia in the past. Her vital signs remained stable and is requesting food in the department. Recommended cold compresses and elevated as needed for pain. Advised to return with any new or worsening symptoms. Patient understands and agrees with this plan. Medical Decision Making Lab Data Result diagrams: 03/13/22 13:06 03/13/22 13:06 Labs: Lab Results 03/13/22 03/13/22 03/13/22 Range/Units 13:06 13:06 13:06 WBC 3.4 L (4.8-10.8) X10*3/uL RBC 3.89 L (4.20-5.50) X10*6/uL Hgb 11.5 L (12.0-16.0) g/dl Hct 36.0 L (37.0-47.0) % MCV 92.5 (80.0-98.0) fL MCH 29.6 (27.0-33.0) pg MCHC 31.9 (31.0-35.0) g/dl RDW 13.6 (11.0-16.0) % Plt Count 131 L (160-400) X10*3/uL MPV 11.3 (9.4-12.3) fL Absolute Nucleated RBC 0.000 (0.0-0.012) X10*3/uL Nucleated RBC % (auto) 0.0 (0.0-0.2) /100WBC PT 11.1 (10.0-13.1) SEC INR 1.0 (0.9-1.1) Sodium 139 (135-145) mmol/L Potassium 4.2 (3.3-5.1) mmol/L Chloride 103 (96-108) mmol/L Carbon Dioxide 30 H (22-29) mmol/L Anion Gap 10 L (12-20) BUN 12 (9-16) mg/dL Creatinine 0.81 (0.5-1.4) mg/dL Estim Creat Clear Calc 60.0 Estimated GFR > 60 Random Glucose 105 (60-115) mg/dL Calcium 9.4 (8.4-10.2) mg/dL Total Bilirubin 0.3 (0.0-1.0) mg/dL AST 20 (5-31) U/L ALT 15 (0-31) U/L Alkaline Phosphatase 109 (39-117) U/L Total Protein 7.4 (6.5-8.0) g/dL Albumin 4.5 (3.5-5.0) g/dL Critical Care Time Critical Care Time Critical Care Time: No Discharge Plan Discharge Clinical Impression: Ecchymosis Patient Disposition: Home, Self-Care Instructions: Ecchymosis (ED) Additional Instructions: Your physical examination was reassuring today. Your pain is most likely due to superficial bruising and possibly bruising underneath the skin as well. We recommend applying cold compresses and elevating your left arm as needed for pain relief If you have any worsening pain, you may return or follow up with your primary care physician. If you develop new or worsening symptoms call 911 or come back to the ER for further evaluation. Prescriptions: No Action fluticasone propionate 50 mcg/actuation spray,suspension 1 spray intranasal BID 30 Days Qty: 16 3RF valsartan 40 mg tablet 40 mg PO DAILY Qty: 90 3RF acetaminophen 325 mg Tablet 325 mg PO QID PRN (Reason: Pain) ondansetron 4 mg tablet,disintegrating 4 mg PO Q8H PRN (Reason: nausea and vomiting) Qty: 20 0RF alprazolam 0.25 mg tablet 0.25 mg PO TID 30 Days Qty: 90 1RF ammonium lactate 12 % cream 1 appl topical DAILY omeprazole 20 mg capsule,delayed release(DR/EC) 20 mg PO DAILY PRN (Reason: gi upset)
== END 2022-03-13 16:12 | disposition home or self-care (01) ==
PROVIDERS: Emergency Provider Emergency Medicine; PCP Physician Assistant
DX: R58 Hemorrhage, not elsewhere classified (principal); M79.602 Pain in left arm; I10 Essential (primary) hypertension; Z86.73 Personal history of transient ischemic attack (TIA), and cerebral infarction without residual deficits; Z87.891 Personal history of nicotine dependence
CPT/HCPCS: 36415; 80053; 85027; 85610; 99283; 99284

== ENCOUNTER 2022-03-17 07:47 | Outpatient (REF) | payer MEDICARE, OTHER, SELFPAY ==
[2022-03-17 09:16] LABS: Erythrocyte Sedimentation Rate 24 MM/HR (0-20)
[2022-03-17 10:42] LABS: Cortisol Random 11.1 ug/dL
[2022-03-17 18:31] LABS: Cortisol Random 5.4 ug/dL
[2022-03-18 16:15] LABS: Adrenocorticotropic Hormone 27 pg/mL (6-50)
== END 2022-03-17 07:48 | disposition home or self-care (01) ==
LOC: HO.LAB 07:47
PROVIDERS: PCP Physician Assistant; Visit Provider Allergy & Immunology Allergy
DX: F41.8 Other specified anxiety disorders (principal); R53.83 Other fatigue; D53.9 Nutritional anemia, unspecified
CPT/HCPCS: 36415; 82024; 82533; 85652

== ENCOUNTER 2022-03-23 08:39 | Outpatient (REF) | payer MEDICARE, OTHER, SELFPAY ==
--- NOTE | ~2022-03-23 | XR_ITS ---
EXAMINATION: XR ABDOMEN KUB CLINICAL INDICATION: Slow transit constipation COMPARISON: December 2021. TECHNIQUE: AP view of the abdomen. FINDINGS: Moderate colonic fecal material again observed, seen throughout the colon. Bowel gas pattern is nonobstructive. No appreciable abnormal calcifications. Degenerative changes at lower lumbar and lumbosacral levels observed. XR/XR abdomen 1V IMPRESSION: Moderate colonic fecal material again seen throughout the colon. Nonobstructive bowel gas pattern.
== END 2022-03-23 08:40 | disposition home or self-care (01) ==
LOC: HO.HMGCX 08:39
PROVIDERS: Visit Provider Internal Medicine
DX: K59.01 Slow transit constipation (principal)
CPT/HCPCS: 74018

== ENCOUNTER 2022-03-28 12:40 | Outpatient (REF) | payer MEDICARE, OTHER, SELFPAY ==
[2022-03-28 14:25] LABS: Appearance Urine CLEAR; Color Urine YELLOW; Glucose Urine UA NEG (NEG); Leukocyte Esterase Urine NEG (NEG); Nitrite Urine NEG (NEG); UACC Culture Trigger NO; Urine Blood TRACE (NEG); Urine Ketones NEG (NEG); Urine Protein NEG (NEG-TRACE)
[2022-03-28 14:45] LABS: Squamous Epithelial Cell Urine 2+ /LPF
[2022-03-28 14:46] LABS: Bacteria Urine TRACE /LPF; WBC Urine 0 /HPF (0-4)
== END 2022-03-28 12:41 | disposition home or self-care (01) ==
LOC: HO.LAB 12:40
PROVIDERS: PCP Physician Assistant; Visit Provider Physician Assistant
DX: R30.0 Dysuria (principal)
CPT/HCPCS: 81001

== ENCOUNTER 2022-03-29 13:57 | Outpatient (REF) | payer MEDICARE, OTHER, SELFPAY ==
--- NOTE | ~2022-03-29 | XR_ITS ---
EXAMINATION: XR CERVICAL SPINE CLINICAL INFORMATION: Cervical spondylosis COMPARISON: January 24, 2022 TECHNIQUE: 6 view cervical spine study. FINDINGS: No abnormal prevertebral soft tissue swelling is identified. No acute cervical spine fracture is identified. There is significant spurring and sclerosis seen involving the right C5-C6 facet and to a lesser extent the right C6-C7 and left C3-C4 facets. There is kyphosis of the upper thoracic spine. There is narrowing with degenerative sclerosis and spurring involving the anterior aspect of C1 and dens. There is mild disc space narrowing seen at the C2-C3 level. There appears to be some mild disc space narrowing at the C6-C7 level. There is minimal spurring joints of Luschka at the C6 C6-C7 levels bilaterally without significant neural foraminal encroachment. XR/XR cervical spine 4V IMPRESSION: Cervical spondylosis as described above with thoracic spine kyphosis. No acute fracture or bony neural foraminal encroachment identified.
== END 2022-03-29 13:58 | disposition home or self-care (01) ==
LOC: HO.XRAY 13:57
PROVIDERS: PCP Physician Assistant; Visit Provider Psychiatry & Neurology Neurology
DX: M43.02 Spondylolysis, cervical region (principal)
CPT/HCPCS: 72050

== ENCOUNTER 2022-04-02 15:47 | Emergency (ER) | payer MEDICARE, OTHER, SELFPAY ==
--- NOTE | ~2022-04-02 | CT_ITS ---
EXAMINATION: CT HEAD WITHOUT CONTRAST CLINICAL INFORMATION: Headache and hypertension COMPARISON: Head CT 01/03/2022 TECHNIQUE: Imaging was performed from the skull base to vertex without intravenous administration of contrast. This CT examination was performed using dose optimization techniques as appropriate, variously including the following: *Automated exposure control *Adjustment of mA and/or kV according to patient size (this includes techniques or standardized protocols for targeted exams where dose is matched to indication/reason for exam; i.e. extremities or head) *Use of iterative reconstruction technique Total exam dose length product: 745 mGy-cm FINDINGS: No intra or extra-axial fluid collection, hemorrhage, or mass. Enlargement of the lateral ventricles primarily posteriorly involving the atria and occipital horns, similar to prior. No midline shift or herniation. Basal cisterns are patent. Curiel-white matter differentiation is maintained. No territorial encephalomalacia. Proportional prominence of the ventricles and sulcal spaces is consistent with moderate volume loss. Again seen is extensive confluent hypoattenuation in the supratentorial white matter, unchanged. Probable dilated perivascular spaces in the inferior lentiform nuclei bilaterally redemonstrated. No calvarial fracture or soft tissue abnormality. The mastoid air cells and visualized portions of the paranasal sinuses are well aerated. CT/CT head/brain wo con IMPRESSION: 1. No intracranial hemorrhage or mass identified. 2. Enlargement of the lateral ventricles appearing somewhat out of proportion to the degree of cerebral atrophy. Correlate clinically with signs or symptoms of normal pressure hydrocephalus. 3. Unchanged confluent white matter hypoattenuation, nonspecific and presumably sequela of chronic small vessel ischemia.
--- NOTE | ~2022-04-02 | XR_ITS ---
EXAMINATION: XR CHEST CLINICAL INFORMATION: Hypertension COMPARISON: Chest x-ray 03/08/2022 TECHNIQUE: Frontal view of the chest was obtained. FINDINGS: No airspace consolidation. No pleural effusion or pneumothorax. Unchanged cardiac mediastinal silhouette. No cardiomegaly or evidence pulmonary edema. Slightly prominent ascending thoracic aortic contour likely due to tortuosity versus mild dilation. Chronic/healed right sixth rib fracture deformity redemonstrated. No acute osseous injury. XR/XR chest 1V IMPRESSION: No acute pulmonary process or change.
[2022-04-02 16:44] VITALS: BP 166/111; PULSE 100; RESP 18; TEMP 36.8; O2SAT 94; BMI 30.4
--- NOTE | 2022-04-02 16:52 | ECG_ITS ---
Test Reason : headack Blood Pressure : / mmHG Vent. Rate : 092 BPM Atrial Rate : 092 BPM P-R Int : 220 ms QRS Dur : 084 ms QT Int : 376 ms P-R-T Axes : 051 -09 020 degrees QTc Int : 464 ms Sinus rhythm with 1st degree A-V block Possible Left atrial enlargement Inferior infarct , age undetermined Cannot rule out Anterior infarct (cited on or before 06-FEB-2022) Abnormal ECG When compared with ECG of 06-FEB-2022 12:46, No significant change was found Referred By: Generic ED Physician Electronically Signed By:WILBUR MCFARLAND
[2022-04-02 17:29] LABS: MANUAL DIFF FLAG NO
[2022-04-02 17:30] LABS: Basophils Percent Auto 0.4 % (0-2); Eosinophils Absolute Auto 0.1 X10*3/uL (0.0-0.4); Eosinophils Percent Auto 1.5 % (0-4); Hemoglobin 12.6 g/dl (12.0-16.0); Imm Gran Abs Auto 0.01 X10*3/uL (0.00-0.03); Imm Gran Pct Auto 0.2 % (0.0-0.4); Lymphocytes Percent Auto 20.6 % (20-40); Mean Corpuscular HGB Conc 33.2 g/dl (31.0-35.0); Mean Corpuscular Hemoglobin 30.4 pg (27.0-33.0); Mean Corpuscular Volume 91.8 fL (80.0-98.0); Mean Platelet Volume 12.3 fL (9.4-12.3); Monocytes Absolute Auto 0.3 X10*3/uL (0.1-1.2); Monocytes Percent Auto 5.6 % (2-11); Neutrophils Absolute Auto 3.3 x10*3/uL (2.0-8.3); Neutrophils Percent Auto 71.7 % (45-73); Platelet Count 126 X10*3/uL (160-400); Red Blood Count 4.14 X10*6/uL (4.20-5.50); Red Cell Distribution Width 13.2 % (11.0-16.0); White Blood Count 4.7 X10*3/uL (4.8-10.8)
[2022-04-02 17:50] LABS: Anion Gap 15 (12-20); Blood Urea Nitrogen 18 mg/dL (9-16); Calcium 9.6 mg/dL (8.4-10.2); Carbon Dioxide 27 mmol/L (22-29); Chloride 104 mmol/L (96-108); Creatinine Clr Calc Pharmacy 61.5; Estimated Glomerular Filt Rate > 60; Glucose Random 102 mg/dL (60-115); Potassium 4.4 mmol/L (3.3-5.1); Sodium 142 mmol/L (135-145)
[2022-04-02 17:57] LABS: Troponin-I High Sensitivity 6.7 ng/L (<3.5-17.0)
--- NOTE | 2022-04-02 19:35 | ED_ITS ---
HPI - General Adult General Chief complaint: General Medical Stated complaint: Nausea/Headache Time Seen by Provider: 04/02/22 19:10 Source: patient Mode of arrival: ambulatory Limitations: no limitations History of Present Illness HPI narrative: Patient comes to the emergency room complaining not feeling well. Before coming to the ED, patient went to Urgent Care, patient complaining of tingling all over, complaining of headache and high blood pressure. Patient is not sure she took her blood pressure medication today. Patient denies chest pain or shortness of breath, no nausea vomiting, abdominal pain, no URI or UTI symptoms. Patient complaining of numbness and tingling in her feet, that started approxi mately a few months ago. Patient states that she has had neuropathy in the past and then itself resolved. Related Data Home Medications Medication Instructions Recorded Confirmed omeprazole 20 mg capsule,delayed 20 mg PO DAILY PRN gi upset 08/07/20 02/28/22 release acetaminophen 325 mg tablet 325 mg PO QID PRN Pain 06/21/21 02/28/22 ammonium lactate 12 % topical cream 1 appl topical DAILY 11/24/21 02/28/22 Previous Rx's Medication Instructions Recorded fluticasone propionate 50 1 spray intranasal BID 30 days #16 11/08/21 mcg/actuation nasal grams spray,suspension ondansetron 4 mg disintegrating 4 mg PO Q8H PRN nausea and 02/01/22 tablet vomiting #20 tabs valsartan 40 mg tablet 40 mg PO DAILY #90 tabs 02/07/22 alprazolam 0.25 mg tablet 0.25 mg PO TID Anxiety 30 days #90 02/28/22 tabs gabapentin 100 mg capsule 100 mg PO BEDTIME #30 caps 04/02/22 Allergies Allergy/AdvReac Type Severity Reaction Status Date / Time Sulfa (Sulfonamide Allergy Intermediate RASH Verified 04/02/22 16:44 Antibiotics) amoxicillin [From AUGMENTIN] Allergy Unknown PER H&P Verified 04/02/22 14:42 clavulanic acid Allergy Unknown PER H&P Verified 03/23/22 08:26 [From AUGMENTIN] garlic [GARLIC] Allergy Unknown PER H&P Verified 04/02/22 14:42 metronidazole [From FLAGYL] Allergy Unknown OCULAR Verified 04/02/22 14:42 MIGRAINES penicillamine Allergy Unknown Unknown Verified 04/02/22 14:42 lisinopril AdvReac Intermediate Cough Verified 04/02/22 14:42 nitrofurantoin AdvReac Mild GI side Verified 04/02/22 14:42 effects environmental Allergy Unknown Unknown Uncoded 04/02/22 14:42 flagyl Allergy Unknown Unknown Uncoded 04/02/22 14:42 From KEFLEX Allergy Unknown RASH Uncoded 04/02/22 14:42 Metoprolol Tartrate Allergy Unknown Unknown Uncoded 04/02/22 14:42 Sulfacet-R Allergy Unknown Unknown Uncoded 04/02/22 14:42 Review of Systems Review of Systems: Constitutional : No Weight loss, No Fever, No Chills, No Night Sweats, complaining of feeling off ENT/Mouth : No Hearing loss, No Ear Pain, No Nasal Congestion, No Sinus Pain, No Hoarseness, No sore throat, No Rhinorrhea, No Swallowing Difficulty Eyes: No Eye Pain, No Swelling, No Redness, No Foreign Body, No Discharge, No Vision Changes Cardiovascular : No Chest Pain, No SOB, No Dyspnea on Exertion, No Orthopnea, No Edema, No Palpitations Respiratory : No Cough, No Sputum, No Wheezing, No Smoke Exposure, No Dyspnea Gastrointestinal : No Nausea, No Vomiting, No Diarrhea, No Constipation, No abdominal Pain, No Hematochezia, No Melena Genitourinary : no irregular bleeding, No Dysuria, No Urinary Frequency, No Hematuria, No Urinary Incontinence, No Urgency, No Flank Pain, No Urinary Flow Changes, No Hesitancy Musculoskeletal : No joint pain, No Myalgias, No Joint Swelling Skin : No Skin Lesions, No rash Neuro : No Weakness, No Numbness, No Paresthesias, No Loss of Consciousness, No Dizziness, earlier today had a headache Psych : No Anxiety/Panic, No Depression, No SI/HI/AH/VH, No Social Issues, Heme/Lymph: No Bruising, No Bleeding,No Lymphadenopathy Endocrine : No Polyuria, No Polydipsia, No Temperature Intolerance [facility] Past Medical History Medical History Anxiety Diverticulitis GERD (gastroesophageal reflux disease) Heart murmur Irritable bowel Surgical History History of appendectomy History of tonsillectomy Family History Family History Father No problems noted. Mother No problems noted. Social History Social History Household Members: Children Housing: House Are you a primary pet care associate to a significant other at home: No Do you presently have visiting nurse or other home services: No Alcohol intake: former Patient Tobacco Use Status: Former Tobacco user e-Cigarette/Vaping Use: Never Used Second Hand Smoke Exposure: No Advance Directives: No Advance Directives Information Provided: Yes service: No Current occupational status: retired Cognitive needs: No Hearing needs: No Vision needs: Yes (glasses) Physical Exam ED Vital Signs: Vital Signs - 24 hr 04/02/22 16:44 04/02/22 19:49 Temperature 98.2 F 98.2 F Pulse Rate 100 101 H Respiratory Rate 18 18 Blood Pressure 166/111 H 167/97 H Pulse Oximetry 94 99 Oxygen Delivery Method Room Air Room Air BMI result Body Mass Index 30.4 Const Other: Appearance: Alert. Oriented X3. No acute distress. Eyes: Pupils equal, round and reactive to light. ENT: Pharynx normal. Neck: Normal inspection. Neck supple. No lymph nodes noted. No crepitus CVS: Normal heart rate and rhythm. Pulses normal. Normal S1 and S2 Respiratory: No respiratory distress. Breath sounds normal. No Wheezing. No rales Abdomen: Soft and nontender. No rigidity. No distention. Skin: Skin warm and dry. Normal skin color. Normal skin turgor. Extremities: No lower extremity edema. No Lacerations. No Rash Neuro: Oriented X 3. No motor deficit. No sensory deficit. Moving all extremities. No slurred speech. CN 2 through 12 grossly intact Psych: calm, cooperative, normal affect Course Course Course Narrative: Both of the labs are back, no acute findings. Head CT pending. I discussed the labs with the patient, no acute findings, urinalysis negative. I discussed with the patient that the numbness and tingling that she has had for several months is likely secondary to neuropathy. Patient states that she has had neuropathy in the past. She has never tried gabapentin but is willing to try. I discussed with the patient to start low-dose at night to avoid any falls Also, I discussed with the patient the CT findings, patient has enlarged ventricles, but patient does not have any symptoms of normal pressure hydrocephalus. At this time, a lumbar puncture is not indicated. Medical Decision Making Lab Data Result diagrams: 04/02/22 17:25 04/02/22 17:25 Labs: Lab Results 04/02/22 04/02/22 04/02/22 Range/Units 17:25 17:25 17:25 WBC 4.7 L (4.8-10.8) X10*3/uL RBC 4.14 L (4.20-5.50) X10*6/uL Hgb 12.6 (12.0-16.0) g/dl Hct 38.0 (37.0-47.0) % MCV 91.8 (80.0-98.0) fL MCH 30.4 (27.0-33.0) pg MCHC 33.2 (31.0-35.0) g/dl RDW 13.2 (11.0-16.0) % Plt Count 126 L (160-400) X10*3/uL MPV 12.3 (9.4-12.3) fL Immature Gran % (Auto) 0.2 (0.0-0.4) % Neut % (Auto) 71.7 (45-73) % Lymph % (Auto) 20.6 (20-40) % [place] % (Auto) 5.6 (2-11) % Eos % (Auto) 1.5 (0-4) % Baso % (Auto) 0.4 (0-2) % Lymph # (Auto) 1.0 L (1.2-4.9) X10*3/uL [place] # (Auto) 0.3 (0.1-1.2) X10*3/uL Eos # (Auto) 0.1 (0.0-0.4) X10*3/uL Baso # (Auto) 0.0 (0.0-0.2) X10*3/uL Abs Immat Gran (auto) 0.01 (0.00-0.03) X10*3/uL Absolute Neuts (auto) 3.3 (2.0-8.3) x10*3/uL Absolute Nucleated RBC 0.000 (0.0-0.012) X10*3/uL Nucleated RBC % (auto) 0.0 (0.0-0.2) /100WBC Sodium 142 (135-145) mmol/L Potassium 4.4 (3.3-5.1) mmol/L Chloride 104 (96-108) mmol/L Carbon Dioxide 27 (22-29) mmol/L Anion Gap 15 (12-20) BUN 18 H (9-16) mg/dL Creatinine 0.79 (0.5-1.4) mg/dL Estim Creat Clear Calc 61.5 Estimated GFR > 60 Random Glucose 102 (60-115) mg/dL Calcium 9.6 (8.4-10.2) mg/dL Magnesium 2.1 (1.6-2.6) mg/dL Troponin I High Sens 6.7 (<3.5-17.0) ng/L Urine Color Urine Appearance Urine pH (5.0-8.0) Ur Specific [place] (1.005-1.025) Urine Protein (NEG-TRACE) MG/DL Urine Glucose (UA) (NEG) MG/DL Urine Ketones (NEG) MG/DL Urine Blood (NEG) Urine Nitrite (NEG) Ur Leukocyte Esterase (NEG) COVID-19 (MANDI) (Negative) COVID-19 Clin Com 04/02/22 04/02/22 Range/Units 19:42 21:24 WBC (4.8-10.8) X10*3/uL RBC (4.20-5.50) X10*6/uL Hgb (12.0-16.0) g/dl Hct (37.0-47.0) % MCV (80.0-98.0) fL MCH (27.0-33.0) pg MCHC (31.0-35.0) g/dl RDW (11.0-16.0) % Plt Count (160-400) X10*3/uL MPV (9.4-12.3) fL Immature Gran % (Auto) (0.0-0.4) % Neut % (Auto) (45-73) % Lymph % (Auto) (20-40) % [place] % (Auto) (2-11) % Eos % (Auto) (0-4) % Baso % (Auto) (0-2) % Lymph # (Auto) (1.2-4.9) X10*3/uL [place] # (Auto) (0.1-1.2) X10*3/uL Eos # (Auto) (0.0-0.4) X10*3/uL Baso # (Auto) (0.0-0.2) X10*3/uL Abs Immat Gran (auto) (0.00-0.03) X10*3/uL Absolute Neuts (auto) (2.0-8.3) x10*3/uL Absolute Nucleated RBC (0.0-0.012) X10*3/uL Nucleated RBC % (auto) (0.0-0.2) /100WBC Sodium (135-145) mmol/L Potassium (3.3-5.1) mmol/L Chloride (96-108) mmol/L Carbon Dioxide (22-29) mmol/L Anion Gap (12-20) BUN (9-16) mg/dL Creatinine (0.5-1.4) mg/dL Estim Creat Clear Calc Estimated GFR Random Glucose (60-115) mg/dL Calcium (8.4-10.2) mg/dL Magnesium (1.6-2.6) mg/dL Troponin I High Sens (<3.5-17.0) ng/L Urine Color YELLOW Urine Appearance CLEAR Urine pH 5.5 (5.0-8.0) Ur Specific [place] 1.025 (1.005-1.025) Urine Protein NEG (NEG-TRACE) MG/DL Urine Glucose (UA) NEG (NEG) MG/DL Urine Ketones NEG (NEG) MG/DL Urine Blood NEG (NEG) Urine Nitrite NEG (NEG) Ur Leukocyte Esterase NEG (NEG) COVID-19 (MANDI) Negative (Negative) COVID-19 Clin Com See Note Discharge Plan Discharge Clinical Impression: Neuropathy Patient Disposition: Home, Self-Care Instructions: Paresthesia (ED) Additional Instructions: Please follow-up with your primary care physician tomorrow. If you have any worsening or new symptoms, please return to the emergency room or call 911 Prescriptions: New gabapentin 100 mg capsule 100 mg PO BEDTIME Qty: 30 0RF No Action fluticasone propionate 50 mcg/actuation spray,suspension 1 spray intranasal BID 30 Days Qty: 16 3RF valsartan 40 mg tablet 40 mg PO DAILY Qty: 90 3RF acetaminophen 325 mg Tablet 325 mg PO QID PRN (Reason: Pain) ondansetron 4 mg tablet,disintegrating 4 mg PO Q8H PRN (Reason: nausea and vomiting) Qty: 20 0RF alprazolam 0.25 mg tablet 0.25 mg PO TID 30 Days Qty: 90 1RF ammonium lactate 12 % cream 1 appl topical DAILY omeprazole 20 mg capsule,delayed release(DR/EC) 20 mg PO DAILY PRN (Reason: gi upset)
[2022-04-02 19:49] VITALS: BP 167/97; PULSE 101; RESP 18; TEMP 36.8; O2SAT 99
[2022-04-02 20:13] LABS: COVID-19 Test Negative (Negative)
[2022-04-02 20:16] LABS: Magnesium 2.1 mg/dL (1.6-2.6)
[2022-04-02 21:31] LABS: Appearance Urine CLEAR; Color Urine YELLOW; Glucose Urine UA NEG (NEG); Leukocyte Esterase Urine NEG (NEG); Nitrite Urine NEG (NEG); PH 5.5 (5.0-8.0); Specific Gravity - Urine 1.025 (1.005-1.025); Urine Blood NEG (NEG); Urine Ketones NEG (NEG); Urine Protein NEG (NEG-TRACE)
--- NOTE | 2022-04-02 22:22 | PC.NURSE ---
Assumed care of pt. at 1900. Pt. resting comfortably w/some mild complaints of tingling in her feet and nose. aware. Performed Urine culture.
== END 2022-04-02 22:26 | disposition home or self-care (01) ==
PROVIDERS: Emergency Provider Emergency Medicine; PCP Physician Assistant
DX: G62.9 Polyneuropathy, unspecified (principal); R51.9 Headache, unspecified; Z20.822 Contact with and (suspected) exposure to COVID-19
CPT/HCPCS: 36415; 70450; 71045; 80048; 81003; 83735; 84484; 85025; 87635; 93005; 99284

== ENCOUNTER 2022-04-11 12:04 | Outpatient (REF) | payer MEDICARE, OTHER, SELFPAY ==
[2022-04-11 14:51] LABS: Folate 7.7 ng/mL (> or = 4.0); Vitamin B12 309 pg/mL (200-900)
== END 2022-04-11 12:05 | disposition home or self-care (01) ==
LOC: HO.10HDL 12:04
PROVIDERS: Visit Provider Nurse Practitioner Family
DX: G62.9 Polyneuropathy, unspecified (principal)
CPT/HCPCS: 36415; 82306; 82607; 82746

== ENCOUNTER 2022-04-20 18:29 | Outpatient (REF) | payer MEDICARE, OTHER, SELFPAY ==
[2022-04-20 19:30] LABS: Influenza A PCR NEGATIVE (Negative); Influenza B PCR NEGATIVE (Negative); Resp Syncy Virus RNA Qual PCR NEGATIVE (Negative); SARS COV2 PCR INHOUSE NEGATIVE (Negative)
== END 2022-04-20 18:30 | disposition home or self-care (01) ==
LOC: HO.LNP 18:29
PROVIDERS: Visit Provider Family Medicine
DX: Z20.822 Contact with and (suspected) exposure to COVID-19 (principal); R50.9 Fever, unspecified
CPT/HCPCS: 0241U

== ENCOUNTER 2022-04-21 10:15 | Outpatient (REF) | payer MEDICARE, OTHER, SELFPAY ==
--- NOTE | ~2022-04-21 | XR_ITS ---
EXAMINATION: XR CHEST CLINICAL INFORMATION: Other specified symptoms and signs involving the circulatory and respiratory system COMPARISON: Previous chest x-rays most recent March 2022 TECHNIQUE: 2 views of the chest were obtained. FINDINGS: The cardiac silhouette does not appear enlarged. The ascending thoracic aorta is dilated. The thoracic aorta is tortuous. Hilar and mediastinal contours are otherwise unremarkable. There is question of a small 3 mm nodule at the right lateral costophrenic angle region. The lungs are otherwise clear. There is no pleural effusion or pneumothorax. There are old right rib fractures. There are degenerative changes of the spine. XR/XR chest 2V IMPRESSION: Dilated ascending thoracic aorta. Further evaluation with echocardiogram or chest CTA recommended. Question small pulmonary nodule at the right lateral costophrenic angle. This could be evaluated at the time of CTA as well. Findings will be communicated with by the [employer] work flow adzing and boring machine feeder.
== END 2022-04-21 10:16 | disposition home or self-care (01) ==
LOC: HO.XRAY 10:15
PROVIDERS: PCP Physician Assistant; Visit Provider Family Medicine
DX: R09.89 Other specified symptoms and signs involving the circulatory and respiratory systems (principal); R50.9 Fever, unspecified
CPT/HCPCS: 71046

== ENCOUNTER 2022-04-23 12:45 | Emergency (ER) | payer MEDICARE, OTHER, SELFPAY ==
[2022-04-23 12:58] VITALS: BP 155/94; PULSE 90; RESP 18; TEMP 36.1; O2SAT 96; BMI 30.4
== END 2022-04-23 15:26 | disposition left against medical advice (07) ==
PROVIDERS: Emergency Provider Emergency Medicine; PCP Physician Assistant
DX: I10 Essential (primary) hypertension (principal); Z86.73 Personal history of transient ischemic attack (TIA), and cerebral infarction without residual deficits; Z87.891 Personal history of nicotine dependence
CPT/HCPCS: 99281

== ENCOUNTER 2022-04-29 10:52 | Outpatient (REF) | payer MEDICARE, OTHER, SELFPAY ==
[2022-04-29 13:40] LABS: Hematocrit 35.7 % (37.0-47.0); Hemoglobin 11.6 g/dl (12.0-16.0); Mean Corpuscular HGB Conc 32.5 g/dl (31.0-35.0); Mean Corpuscular Hemoglobin 30.3 pg (27.0-33.0); Mean Corpuscular Volume 93.2 fL (80.0-98.0); Mean Platelet Volume 12.6 fL (9.4-12.3); Platelet Count 121 X10*3/uL (160-400); Red Blood Count 3.83 X10*6/uL (4.20-5.50); Red Cell Distribution Width 13.2 % (11.0-16.0); White Blood Count 3.3 X10*3/uL (4.8-10.8)
[2022-04-29 13:51] LABS: Anion Gap 12 (12-20); Blood Urea Nitrogen 17 mg/dL (9-16); Calcium 9.4 mg/dL (8.4-10.2); Carbon Dioxide 30 mmol/L (22-29); Chloride 103 mmol/L (96-108); Estimated Glomerular Filt Rate > 60; Glucose Random 92 mg/dL (60-115); Iron 74 mcg/dL (30-160); Percent Iron Saturation 22 % (15-50); Potassium 4.4 mmol/L (3.3-5.1); Sodium 141 mmol/L (135-145); Total Iron Binding Capacity 334 mcg/dL (228-428); Unsaturated Iron Binding 260 ug/dL
[2022-04-29 14:11] LABS: TSH reflex Free T4 1.13 uIU/mL (0.32-4.0)
== END 2022-04-29 10:53 | disposition home or self-care (01) ==
LOC: HO.10HDL 10:52
PROVIDERS: Visit Provider Physician Assistant
DX: R53.83 Other fatigue (principal); R68.89 Other general symptoms and signs; D50.9 Iron deficiency anemia, unspecified
CPT/HCPCS: 36415; 80048; 83540; 84443; 85027

== ENCOUNTER 2022-05-12 09:16 | Emergency (ER) | payer MEDICARE, OTHER, SELFPAY ==
--- NOTE | ~2022-05-12 | XR_ITS ---
EXAMINATION: XR CHEST CLINICAL INFORMATION: Covid infection COMPARISON: Previous chest x-ray most recent 04/21/2022 TECHNIQUE: Frontal view of the chest was obtained. FINDINGS: The cardiac and mediastinal contours are stable. The lungs are clear. There is no pleural effusion or pneumothorax. There are old right rib fractures. There are degenerative changes of the spine. XR/XR chest 1V IMPRESSION: No evidence for acute disease in the chest.
[2022-05-12 09:29] VITALS: BP 176/98; PULSE 106; RESP 16; TEMP 37.1; O2SAT 95; BMI 29.0
[2022-05-12 11:18] LABS: Basophils Percent Auto 0.2 % (0-2); Eosinophils Percent Auto 0.7 % (0-4); PLT CLUMP 1; Red Cell Distribution Width 13.2 % (11.0-16.0); SCAN SMEAR FLAG 1
[2022-05-12 11:20] LABS: Hemoglobin 11.9 g/dl (12.0-16.0); Imm Gran Abs Auto 0.02 X10*3/uL (0.00-0.03); Imm Gran Pct Auto 0.5 % (0.0-0.4); Lymphocytes Absolute Auto 0.5 X10*3/uL (1.2-4.9); Lymphocytes Percent Auto 11.4 % (20-40); Mean Corpuscular HGB Conc 33.1 g/dl (31.0-35.0); Mean Corpuscular Hemoglobin 30.5 pg (27.0-33.0); Mean Corpuscular Volume 92.3 fL (80.0-98.0); Monocytes Absolute Auto 0.5 X10*3/uL (0.1-1.2); Monocytes Percent Auto 10.7 % (2-11); Neutrophils Absolute Auto 3.2 x10*3/uL (2.0-8.3); Neutrophils Percent Auto 76.5 % (45-73)
[2022-05-12 11:24] LABS: White Blood Count 4.2 X10*3/uL (4.8-10.8)
[2022-05-12 11:25] LABS: MANUAL DIFF FLAG NO; Platelet Count 96 X10*3/uL (160-400)
[2022-05-12 11:26] LABS: COVID-19 Test Positive (Negative); IDNOW Serial# 08D9AD1C
[2022-05-12 11:37] LABS: Alanine Aminotransferase 12 U/L (0-31); Albumin Level 4.5 g/dL (3.5-5.0); Alkaline Phosphatase 122 U/L (39-117); Anion Gap 19 (12-20); Aspartate Amino Transferase 24 U/L (5-31); Bilirubin Total 0.6 mg/dL (0.0-1.0); Blood Urea Nitrogen 14 mg/dL (9-16); Calcium 9.7 mg/dL (8.4-10.2); Carbon Dioxide 24 mmol/L (22-29); Chloride 102 mmol/L (96-108); Creatinine Clr Calc Pharmacy 59.3; Estimated Glomerular Filt Rate > 60; Glucose Random 104 mg/dL (60-115); Potassium 4.6 mmol/L (3.3-5.1); Sodium 140 mmol/L (135-145)
--- NOTE | 2022-05-12 18:54 | ED_ITS ---
HPI - General Adult General Chief complaint: Abdominal Pain Stated complaint: abd pain reflex Time Seen by Provider: 05/12/22 11:47 Source: patient Mode of arrival: ambulatory Limitations: no limitations History of Present Illness HPI narrative: Patient been nauseated for last 3 days with diarrhea diffuse abdominal pain patient's son is handicapped and positive for COVID 3 days ago patient has been testing at home coming out to be negative no fever feels little cold has dry cough saturating 94% at room air no vomiting or diarrhea since in the ER Related Data Home Medications Medication Instructions Recorded Confirmed omeprazole 20 mg capsule,delayed 20 mg PO DAILY PRN gi upset 08/07/20 04/26/22 release acetaminophen 325 mg tablet 325 mg PO QID PRN Pain 06/21/21 04/26/22 ammonium lactate 12 % topical cream 1 appl topical DAILY 11/24/21 04/26/22 cyclobenzaprine 10 mg tablet 10 mg PO BEDTIME PRN 04/06/22 04/26/22 Previous Rx's Medication Instructions Recorded fluticasone propionate 50 1 spray intranasal BID 30 days #16 11/08/21 mcg/actuation nasal grams spray,suspension ondansetron 4 mg disintegrating 4 mg PO Q8H PRN nausea and 02/01/22 tablet vomiting #20 tabs valsartan 40 mg tablet 40 mg PO DAILY #90 tabs 02/07/22 alprazolam 0.25 mg tablet 0.25 mg PO TID Anxiety 30 days #90 02/28/22 tabs gabapentin 100 mg capsule 100 mg PO BEDTIME #30 caps 04/02/22 alprazolam 0.25 mg tablet 0.25 mg PO TID PRN anxiety 30 days 04/11/22 #90 tabs cholecalciferol (vitamin D3) 50 50 mcg PO DAILY #90 tabs 04/13/22 mcg (2,000 unit) tablet dextromethorphan-guaifenesin 5 10 ml PO Q4-8H PRN cough #237 mL 05/12/22 mg-100 mg/5 mL oral liquid (Robitussin Cough-Chest Congestion DM) ondansetron 4 mg disintegrating 4 mg PO Q6-8H PRN nausea and 05/12/22 tablet vomiting #7 tabs Allergies Allergy/AdvReac Type Severity Reaction Status Date / Time Sulfa (Sulfonamide Allergy Intermediate RASH Verified 04/26/22 11:36 Antibiotics) amoxicillin [From AUGMENTIN] Allergy Unknown PER H&P Verified 04/26/22 11:36 clavulanic acid Allergy Unknown PER H&P Verified 04/26/22 11:36 [From AUGMENTIN] garlic [GARLIC] Allergy Unknown PER H&P Verified 04/26/22 11:36 metronidazole [From FLAGYL] Allergy Unknown OCULAR Verified 04/26/22 11:36 MIGRAINES penicillamine Allergy Unknown Unknown Verified 04/26/22 11:36 lisinopril AdvReac Intermediate Cough Verified 04/26/22 11:36 nitrofurantoin AdvReac Mild GI side Verified 04/26/22 11:36 effects environmental Allergy Unknown Unknown Uncoded 04/26/22 11:26 flagyl Allergy Unknown Unknown Uncoded 04/26/22 11:26 From KEFLEX Allergy Unknown RASH Uncoded 04/26/22 11:26 Metoprolol Tartrate Allergy Unknown Unknown Uncoded 04/26/22 11:26 Sulfacet-R Allergy Unknown Unknown Uncoded 04/26/22 11:26 Review of Systems Review of Systems: Yes all other systems are reviewed and are negative [facility] Past Medical History Medical History Anxiety Diverticulitis GERD (gastroesophageal reflux disease) Heart murmur Irritable bowel Surgical History History of appendectomy History of tonsillectomy Family History Family History Father No problems noted. Mother No problems noted. Social History Social History Household Members: Children Housing: House Are you a primary care consultant to a significant other at home: No Do you presently have visiting nurse or other home services: No Alcohol intake: former Patient Tobacco Use Status: Former Tobacco user e-Cigarette/Vaping Use: Never Used Second Hand Smoke Exposure: No Advance Directives: No Advance Directives Information Provided: No service: No Current occupational status: retired Cognitive needs: No Hearing needs: No Vision needs: Yes (glasses) Physical Exam ED Vital Signs: Vital Signs - 24 hr 05/12/22 09:29 Temperature 98.8 F Pulse Rate 106 H Respiratory Rate 16 Blood Pressure 176/98 H Pulse Oximetry 95 Oxygen Delivery Method Room Air BMI result Body Mass Index 29.0 Appearance: Alert. Oriented X3. No acute distress. Eyes: PERRLA, No Nystagmus ENT: Pharynx normal. Oral Mucosa moist Neck: Normal inspection. Neck supple. CVS: Normal heart rate and rhythm. Pulses normal. Respiratory: No respiratory distress. Equal air entry bilateral, no wheezing/rales/rhonchi Abdomen: Soft and nontender. Bowel sounds are present, no mass palpable, no CVA tenderness Skin: Skin warm and dry. Normal skin color. Normal skin turgor. Extremities: No lower extremity edema. No calf tenderness Neuro: Oriented X 3. No motor deficit. No sensory deficit.No cerebellar signs , cranial nerves II-XII intact Medical Decision Making MDM Narrative Medical decision making narrative: Patient with stable labs COVID-19 positive chest x-ray negative for infiltrate saturating 94-95% on room air not in any distress will discharge patient home advised to take cough syrup report to the ER if shortness of breath Lab Data Lab results reviewed: Yes I reviewed the patient's lab results. Result diagrams: 05/12/22 11:05 05/12/22 11:05 Labs: Lab Results 05/12/22 05/12/22 05/12/22 Range/Units 11:05 11:05 11:05 WBC 4.2 L (4.8-10.8) X10*3/uL RBC 3.90 L (4.20-5.50) X10*6/uL Hgb 11.9 L (12.0-16.0) g/dl Hct 36.0 L (37.0-47.0) % MCV 92.3 (80.0-98.0) fL MCH 30.5 (27.0-33.0) pg MCHC 33.1 (31.0-35.0) g/dl RDW 13.2 (11.0-16.0) % Plt Count 96 L (160-400) X10*3/uL MPV 12.0 (9.4-12.3) fL Immature Gran % (Auto) 0.5 H (0.0-0.4) % Neut % (Auto) 76.5 H (45-73) % Lymph % (Auto) 11.4 L (20-40) % [place] % (Auto) 10.7 (2-11) % Eos % (Auto) 0.7 (0-4) % Baso % (Auto) 0.2 (0-2) % Lymph # (Auto) 0.5 L (1.2-4.9) X10*3/uL [place] # (Auto) 0.5 (0.1-1.2) X10*3/uL Eos # (Auto) 0.0 (0.0-0.4) X10*3/uL Baso # (Auto) 0.0 (0.0-0.2) X10*3/uL Abs Immat Gran (auto) 0.02 (0.00-0.03) X10*3/uL Absolute Neuts (auto) 3.2 (2.0-8.3) x10*3/uL Absolute Nucleated RBC 0.000 (0.0-0.012) X10*3/uL Nucleated RBC % (auto) 0.0 (0.0-0.2) /100WBC Sodium 140 (135-145) mmol/L Potassium 4.6 (3.3-5.1) mmol/L Chloride 102 (96-108) mmol/L Carbon Dioxide 24 (22-29) mmol/L Anion Gap 19 (12-20) BUN 14 (9-16) mg/dL Creatinine 0.80 (0.5-1.4) mg/dL Estim Creat Clear Calc 59.3 Estimated GFR > 60 Random Glucose 104 (60-115) mg/dL Calcium 9.7 (8.4-10.2) mg/dL Total Bilirubin 0.6 (0.0-1.0) mg/dL AST 24 (5-31) U/L ALT 12 (0-31) U/L Alkaline Phosphatase 122 H (39-117) U/L Total Protein 8.0 (6.5-8.0) g/dL Albumin 4.5 (3.5-5.0) g/dL COVID-19 (MANDI) Positive A (Negative) COVID-19 Clin Com See Note Discharge Plan Discharge Clinical Impression: COVID-19 Patient Disposition: Home, Self-Care Instructions: COVID-19 (Coronavirus Disease 2019) (ED) Additional Instructions: Keep social distancing Cough drops as advised Elliott for nausea Report to the ER if increased shortness of breath or not feeling better Prescriptions: New Robitussin Cough-Chest [place] DM 5-100 mg/5 mL liquid 10 ml PO Q4-8H PRN (Reason: cough) Qty: 237 0RF ondansetron 4 mg tablet,disintegrating 4 mg PO Q6-8H PRN (Reason: nausea and vomiting) Qty: 7 0RF No Action fluticasone propionate 50 mcg/actuation spray,suspension 1 spray intranasal BID 30 Days Qty: 16 3RF valsartan 40 mg tablet 40 mg PO DAILY Qty: 90 3RF alprazolam 0.25 mg tablet 0.25 mg PO TID PRN (Reason: anxiety) 30 Days Qty: 90 1RF cholecalciferol (vitamin D3) 50 mcg (2,000 unit) tablet 50 mcg PO DAILY Qty: 90 0RF acetaminophen 325 mg Tablet 325 mg PO QID PRN (Reason: Pain) gabapentin 100 mg capsule 100 mg PO BEDTIME Qty: 30 0RF ondansetron 4 mg tablet,disintegrating 4 mg PO Q8H PRN (Reason: nausea and vomiting) Qty: 20 0RF alprazolam 0.25 mg tablet 0.25 mg PO TID 30 Days Qty: 90 1RF ammonium lactate 12 % cream 1 appl topical DAILY cyclobenzaprine 10 mg tablet 10 mg PO BEDTIME PRN omeprazole 20 mg capsule,delayed release(DR/EC) 20 mg PO DAILY PRN (Reason: gi upset)
[2022-05-12] MEDS: guaiFENesin 200 MG/10 ML 10 ML LIQUID PO (18:55)
[2022-05-12] MEDS: Benzonatate 100 MG CAPSULE 200 MG PO (18:55)
[2022-05-12] MEDS: Ondansetron ODT 4 MG TAB.RAPDIS TRANSLINGU (19:56)
== END 2022-05-12 20:00 | disposition home or self-care (01) ==
PROVIDERS: Emergency Provider Internal Medicine; PCP Physician Assistant
DX: U07.1 COVID-19 (principal); Z87.891 Personal history of nicotine dependence; Z79.899 Other long term (current) drug therapy
CPT/HCPCS: 36415; 71045; 80053; 85025; 87635; 99282; 99283

== ENCOUNTER 2022-05-22 15:15 | Emergency (ER) | payer MEDICARE, OTHER, SELFPAY ==
--- NOTE | ~2022-05-22 | XR_ITS ---
EXAMINATION: XR CHEST CLINICAL INFORMATION: Chest pain COMPARISON: Chest x-ray on 05/12/2022 TECHNIQUE: Frontal view of the chest was obtained. FINDINGS: Cardiomediastinal silhouette is stable. Mild chronic interstitial disease. No new areas of consolidation. No pleural effusions. XR/XR chest 1V IMPRESSION: No acute disease.
--- NOTE | 2022-05-22 15:16 | ECG_ITS ---
Test Reason : CHEST TIGHTNESS Blood Pressure : / mmHG Vent. Rate : 102 BPM Atrial Rate : 102 BPM P-R Int : 196 ms QRS Dur : 084 ms QT Int : 350 ms P-R-T Axes : 053 -20 042 degrees QTc Int : 456 ms Sinus tachycardia Septal infarct (cited on or before 06-FEB-2022) Cannot rule out Inferior infarct (cited on or before 06-FEB-2022) Abnormal ECG When compared with ECG of 02-APR-2022 17:30, T wave amplitude has increased in Anterior leads Referred By: Generic ED Physician Electronically Signed By:PEPE PAIGE
[2022-05-22 15:17] VITALS: BP 189/102; PULSE 100; RESP 18; TEMP 36.1; O2SAT 95; BMI 34.3
[2022-05-22 15:30] LABS: MANUAL DIFF FLAG NO
[2022-05-22 15:31] LABS: Basophils Percent Auto 0.4 % (0-2); Eosinophils Absolute Auto 0.1 X10*3/uL (0.0-0.4); Eosinophils Percent Auto 2.6 % (0-4); Hematocrit 37.8 % (37.0-47.0); Hemoglobin 12.4 g/dl (12.0-16.0); Imm Gran Abs Auto 0.03 X10*3/uL (0.00-0.03); Imm Gran Pct Auto 0.6 % (0.0-0.4); Lymphocytes Absolute Auto 1.1 X10*3/uL (1.2-4.9); Lymphocytes Percent Auto 22.8 % (20-40); Mean Corpuscular HGB Conc 32.8 g/dl (31.0-35.0); Mean Corpuscular Volume 91.5 fL (80.0-98.0); Mean Platelet Volume 10.7 fL (9.4-12.3); Monocytes Absolute Auto 0.3 X10*3/uL (0.1-1.2); Monocytes Percent Auto 5.7 % (2-11); Neutrophils Absolute Auto 3.2 x10*3/uL (2.0-8.3); Neutrophils Percent Auto 67.9 % (45-73); Platelet Count 142 X10*3/uL (160-400); Red Blood Count 4.13 X10*6/uL (4.20-5.50); Red Cell Distribution Width 13.3 % (11.0-16.0); White Blood Count 4.7 X10*3/uL (4.8-10.8)
[2022-05-22 15:50] LABS: Alanine Aminotransferase 12 U/L (0-31); Albumin Level 4.5 g/dL (3.5-5.0); Alkaline Phosphatase 116 U/L (39-117); Anion Gap 15 (12-20); Aspartate Amino Transferase 17 U/L (5-31); Bilirubin Total 0.6 mg/dL (0.0-1.0); Blood Urea Nitrogen 16 mg/dL (9-16); Calcium 10.1 mg/dL (8.4-10.2); Carbon Dioxide 31 mmol/L (22-29); Chloride 101 mmol/L (96-108); Creatinine Clr Calc Pharmacy 58.7; Estimated Glomerular Filt Rate > 60; Glucose Random 124 mg/dL (60-115); Potassium 4.8 mmol/L (3.3-5.1); Sodium 142 mmol/L (135-145); Total Protein 7.7 g/dL (6.5-8.0)
[2022-05-22 15:51] LABS: Troponin-I High Sensitivity 5.6 ng/L (<3.5-17.0)
[2022-05-22 17:53] VITALS: BP 170/95; PULSE 86; RESP 20; O2SAT 97
--- NOTE | 2022-05-22 17:56 | ED.CHESTPAIN ---
HPI - Chest Pain General Chief Complaint: Chest Pain Stated Complaint: chest tight, L arm tingling. woke up this morning Source: patient Mode of arrival: ambulatory Limitations: no limitations History of Present Illness HPI narrative: Patient presents to the ED for mid sternal/epigastric pain since this morning describes as acid burning sensation. Patient recently diagnosed with COVID symptoms of this month. Patient denies any leg swelling, calf pain, cough up blood, pleurisy, shortness of breath, recent long travel, recent surgery, or estrogen hormone use. Admits to history of anxiety. Denies any recent trauma or syncope. Related Data Home Medications Medication Instructions Recorded Confirmed omeprazole 20 mg capsule,delayed 20 mg PO DAILY PRN gi upset 08/07/20 04/26/22 release acetaminophen 325 mg tablet 325 mg PO QID PRN Pain 06/21/21 04/26/22 ammonium lactate 12 % topical cream 1 appl topical DAILY 11/24/21 04/26/22 cyclobenzaprine 10 mg tablet 10 mg PO BEDTIME PRN 04/06/22 04/26/22 Previous Rx's Medication Instructions Recorded fluticasone propionate 50 1 spray intranasal BID 30 days #16 11/08/21 mcg/actuation nasal grams spray,suspension valsartan 40 mg tablet 40 mg PO DAILY #90 tabs 02/07/22 alprazolam 0.25 mg tablet 0.25 mg PO TID Anxiety 30 days #90 02/28/22 tabs gabapentin 100 mg capsule 100 mg PO BEDTIME #30 caps 04/02/22 alprazolam 0.25 mg tablet 0.25 mg PO TID PRN anxiety 30 days 04/11/22 #90 tabs cholecalciferol (vitamin D3) 50 50 mcg PO DAILY #90 tabs 04/13/22 mcg (2,000 unit) tablet dextromethorphan-guaifenesin 5 10 ml PO Q4-8H PRN cough #237 mL 05/12/22 mg-100 mg/5 mL oral liquid (Robitussin Cough-Chest Congestion DM) ondansetron HCl 4 mg tablet 4 mg PO Q8H PRN nausea and 05/17/22 vomiting 7 days #21 tabs famotidine 20 mg tablet (Pepcid) 20 mg PO BID 10 days #20 tabs 05/22/22 Allergies Allergy/AdvReac Type Severity Reaction Status Date / Time Sulfa (Sulfonamide Allergy Intermediate RASH Verified 04/26/22 11:36 Antibiotics) amoxicillin [From AUGMENTIN] Allergy Unknown PER H&P Verified 04/26/22 11:36 clavulanic acid Allergy Unknown PER H&P Verified 04/26/22 11:36 [From AUGMENTIN] garlic [GARLIC] Allergy Unknown PER H&P Verified 04/26/22 11:36 metronidazole [From FLAGYL] Allergy Unknown OCULAR Verified 04/26/22 11:36 MIGRAINES penicillamine Allergy Unknown Unknown Verified 04/26/22 11:36 lisinopril AdvReac Intermediate Cough Verified 04/26/22 11:36 nitrofurantoin AdvReac Mild GI side Verified 04/26/22 11:36 effects environmental Allergy Unknown Unknown Uncoded 04/26/22 11:26 flagyl Allergy Unknown Unknown Uncoded 04/26/22 11:26 From KEFLEX Allergy Unknown RASH Uncoded 04/26/22 11:26 Metoprolol Tartrate Allergy Unknown Unknown Uncoded 04/26/22 11:26 Sulfacet-R Allergy Unknown Unknown Uncoded 04/26/22 11:26 Review of Systems Review of Systems: acid burning sensation in epigastric and chest. Yes all other systems are reviewed and are negative PMFSH Past Medical History Medical History Anxiety Diverticulitis GERD (gastroesophageal reflux disease) Heart murmur Irritable bowel Surgical History History of appendectomy History of tonsillectomy Family History Family History Father No problems noted. Mother No problems noted. Social History Social History Household Members: Children Housing: House Are you a primary care transition mgr to a significant other at home: No Do you presently have visiting nurse or other home services: No Alcohol intake: former Patient Tobacco Use Status: Former Tobacco user e-Cigarette/Vaping Use: Never Used Second Hand Smoke Exposure: No Advance Directives: No Advance Directives Information Provided: No service: No Current occupational status: retired Cognitive needs: No Hearing needs: No Vision needs: Yes (glasses) Physical Exam Vital Signs: Vital Signs: Last Vital Signs Temp 96.9 F 05/22/22 15:17 Pulse 86 05/22/22 17:53 Resp 20 05/22/22 17:53 BP 170/95 H 05/22/22 17:53 Pulse Ox 97 05/22/22 17:53 O2 Del Method 05/22/22 15:17 BMI result Body Mass Index 34.3 Const: General: cooperative, healthy appearing, comfortable, no acute distress, well developed, alert, awake and Physically active Orientation/consciousness: patient oriented x3 HEENT: Head: Yes normal to inspection, Yes No palpable skull fracture present, Yes normocephalic, Yes atraumatic and No abrasion Eyes: General: appearance normal, both eyes and all related structures Neck: Neck: Yes normal visual inspection, Yes full ROM, Yes no lymphadenopathy, Yes no meningeal signs, Yes trachea midline, Yes supple, No anterior neck swelling and No tender Chest: Chest palpation & inspection: normal inspection of the chest and normal palpation of entire chest wall Resp: Effort & Inspection: normal respiratory effort and able to speak in complete sentences Auscultation: clear to auscultation bilaterally Cardio: Jugular venous distension: no JVD Heart sounds: S1 normal heart sound present and S2 normal heart sound present GI: Inspection: Yes normal to inspection and No abdominal wall ecchymosis Palpation (GI): Soft to palpation, not firm, nontender, no guarding and not rigid : General: No CVA tenderness and Yes no CVA tenderness Back/Spine/Pelvis: Back: no CVA tenderness, No CVA tenderness and No back tenderness Skin: General skin exam: no rashes or lesions noted and elasticity normal Neuro: General: patient oriented x3, gait normal, no meningeal signs and CN's II-XI intact bilaterally Cranial nerves: Yes CN's II-XII intact bilaterally Extrem: Other: Lower extremities negative for swelling, pitting edema, calf tenderness General: Yes normal to inspection and Yes full ROM Psych: Appearance: grossly normal, well kempt and not disheveled Course Course Course Narrative: Patient pleasant and well-appearing. Patient states as a burning sensation due to age will do cardiac evaluation. Patient is slightly tachycardic and recent COVID will add a D-dimer. Chest x-ray ordered. GI cocktail ordered. Reevaluation(s) Reevaluation #1: EKG negative STEMI. Two troponins negative. D-dimer 206 which is negative. negative is 230. Patient feels better after GI cocktail. patient to be discharged. Upon re-evaluation patient admits to not taking Prilosec for a while. Chest xray is normal. Time: 19:56 MDM - Chest Pain MDM Narrative Medical decision making narrative: Atypical chest pain/GERD Lab Data Result diagrams: 05/22/22 15:26 05/22/22 15: Labs: Lab Results 05/22/22 05/22/22 05/22/22 Range/Units 15:26 15:26 15:26 WBC 4.7 L (4.8-10.8) X10*3/uL RBC 4.13 L (4.20-5.50) X10*6/uL Hgb 12.4 (12.0-16.0) g/dl Hct 37.8 (37.0-47.0) % MCV 91.5 (80.0-98.0) fL MCH 30.0 (27.0-33.0) pg MCHC 32.8 (31.0-35.0) g/dl RDW 13.3 (11.0-16.0) % Plt Count 142 L D (160-400) X10*3/uL MPV 10.7 (9.4-12.3) fL Immature Gran % (Auto) 0.6 H (0.0-0.4) % Neut % (Auto) 67.9 (45-73) % Lymph % (Auto) 22.8 (20-40) % [place]ner % (Auto) 5.7 (2-11) % Eos % (Auto) 2.6 (0-4) % Baso % (Auto) 0.4 (0-2) % Lymph # (Auto) 1.1 L (1.2-4.9) X10*3/uL [place] # (Auto) 0.3 (0.1-1.2) X10*3/uL Eos # (Auto) 0.1 (0.0-0.4) X10*3/uL Baso # (Auto) 0.0 (0.0-0.2) X10*3/uL Abs Immat Gran (auto) 0.03 (0.00-0.03) X10*3/uL Absolute Neuts (auto) 3.2 (2.0-8.3) x10*3/uL Absolute Nucleated RBC 0.000 (0.0-0.012) X10*3/uL Nucleated RBC % (auto) 0.0 (0.0-0.2) /100WBC PT (10.0-13.1) SEC INR (0.9-1.1) APTT (26.0-36.4) SEC D-Dimer High Sensitivty NG/ML Sodium 142 (135-145) mmol/L Potassium 4.8 (3.3-5.1) mmol/L Chloride 101 (96-108) mmol/L Carbon Dioxide 31 H (22-29) mmol/L Anion Gap 15 (12-20) BUN 16 (9-16) mg/dL Creatinine 0.82 (0.5-1.4) mg/dL Estim Creat Clear Calc 58.7 Estimated GFR > 60 Random Glucose 124 H (60-115) mg/dL Calcium 10.1 (8.4-10.2) mg/dL Total Bilirubin 0.6 (0.0-1.0) mg/dL AST 17 (5-31) U/L ALT 12 (0-31) U/L Alkaline Phosphatase 116 (39-117) U/L Troponin I High Sens 5.6 (<3.5-17.0) ng/L B-Natriuretic Peptide (<100) pg/mL Total Protein 7.7 (6.5-8.0) g/dL Albumin 4.5 (3.5-5.0) g/dL 05/22/22 05/22/22 05/22/22 Range/Units 18:19 18:19 18:19 WBC (4.8-10.8) X10*3/uL RBC (4.20-5.50) X10*6/uL Hgb (12.0-16.0) g/dl Hct (37.0-47.0) % MCV (80.0-98.0) fL MCH (27.0-33.0) pg MCHC (31.0-35.0) g/dl RDW (11.0-16.0) % Plt Count (160-400) X10*3/uL MPV (9.4-12.3) fL Immature Gran % (Auto) (0.0-0.4) % Neut % (Auto) (45-73) % Lymph % (Auto) (20-40) % [place]ner % (Auto) (2-11) % Eos % (Auto) (0-4) % Baso % (Auto) (0-2) % Lymph # (Auto) (1.2-4.9) X10*3/uL [place] # (Auto) (0.1-1.2) X10*3/uL Eos # (Auto) (0.0-0.4) X10*3/uL Baso # (Auto) (0.0-0.2) X10*3/uL Abs Immat Gran (auto) (0.00-0.03) X10*3/uL Absolute Neuts (auto) (2.0-8.3) x10*3/uL Absolute Nucleated RBC (0.0-0.012) X10*3/uL Nucleated RBC % (auto) (0.0-0.2) /100WBC PT 11.5 (10.0-13.1) SEC INR 1.0 (0.9-1.1) APTT 35.3 (26.0-36.4) SEC D-Dimer High Sensitivty 206 NG/ML Sodium (135-145) mmol/L Potassium (3.3-5.1) mmol/L Chloride (96-108) mmol/L Carbon Dioxide (22-29) mmol/L Anion Gap (12-20) BUN (9-16) mg/dL Creatinine (0.5-1.4) mg/dL Estim Creat Clear Calc Estimated GFR Random Glucose (60-115) mg/dL Calcium (8.4-10.2) mg/dL Total Bilirubin (0.0-1.0) mg/dL AST (5-31) U/L ALT (0-31) U/L Alkaline Phosphatase (39-117) U/L Troponin I High Sens 5.6 (<3.5-17.0) ng/L B-Natriuretic Peptide 88 (<100) pg/mL Total Protein (6.5-8.0) g/dL Albumin (3.5-5.0) g/dL ECG Data ECG #1: Interpretation: Sinus tachycardia. Ventricular rate 102. CT interval 196. Care is 84. QTC 456. Negative STEMI Discharge Plan Discharge Clinical Impression: Chest pain, GERD (gastroesophageal reflux disease) Patient Disposition: Home, Self-Care Instructions: Chest Pain (DC), Gastroesophageal Reflux Disease (ED) Additional Instructions: Continue taking Prilosec as prescribed by primary care provider. The workup came back negative for heart attack, pneumonia, heart failure, risk of heart attack. Return to the ED immediately for any chest pain, shortness of breath, tingling in extremities, neck pain, chest pain on inspiration, fever, chills, coughing up blood, leg swelling, calf pain, weakness, dizziness, nausea, vomiting, severe abdominal pain, or any other concerning symptoms. Please follow-up with the structural iron erector. Prescriptions: New famotidine [Pepcid] 20 mg tablet 20 mg PO BID 10 Days Qty: 20 0RF No Action fluticasone propionate 50 mcg/actuation spray,suspension 1 spray intranasal BID 30 Days Qty: 16 3RF valsartan 40 mg tablet 40 mg PO DAILY Qty: 90 3RF alprazolam 0.25 mg tablet 0.25 mg PO TID PRN (Reason: anxiety) 30 Days Qty: 90 1RF cholecalciferol (vitamin D3) 50 mcg (2,000 unit) tablet 50 mcg PO DAILY Qty: 90 0RF ondansetron HCl 4 mg tablet 4 mg PO Q8H PRN (Reason: nausea and vomiting) 7 Days Qty: 21 0RF acetaminophen 325 mg Tablet 325 mg PO QID PRN (Reason: Pain) gabapentin 100 mg capsule 100 mg PO BEDTIME Qty: 30 0RF Robitussin Cough-Chest Marques DM 5-100 mg/5 mL liquid 10 ml PO Q4-8H PRN (Reason: cough) Qty: 237 0RF alprazolam 0.25 mg tablet 0.25 mg PO TID 30 Days Qty: 90 1RF ammonium lactate 12 % cream 1 appl topical DAILY cyclobenzaprine 10 mg tablet 10 mg PO BEDTIME PRN omeprazole 20 mg capsule,delayed release(DR/EC) 20 mg PO DAILY PRN (Reason: gi upset) Print Language: Macedonian
[2022-05-22] MEDS: PHENobarb/Hyoscy/Atropine/Scop 10 ML ELIXIR PO (18:31)
[2022-05-22] MEDS: Famotidine/PF 20 MG/2 ML VIAL IVPUSH (18:32)
[2022-05-22] MEDS: Lidocaine HCl Viscous 2 % 15 ML SOLUTION MUCOUS MEM (18:32)
[2022-05-22] MEDS: Magnesium Hydrox/Alum Hydrox 30 ML ORAL.SUSP PO (18:32)
[2022-05-22 18:38] LABS: Prothrombin Time 11.5 SEC (10.0-13.1)
[2022-05-22 18:41] LABS: Partial Thromboplastin Time 35.3 SEC (26.0-36.4)
[2022-05-22 18:51] LABS: B Type Natriuretic Peptide 88 pg/mL (<100)
[2022-05-22 18:52] LABS: Troponin-I High Sensitivity 5.6 ng/L (<3.5-17.0)
[2022-05-22 19:13] LABS: D Dimer High Sensitivity 206 NG/ML
[2022-05-22 20:23] VITALS: BP 141/84; PULSE 96; RESP 17; TEMP 36.7; O2SAT 96
== END 2022-05-22 21:02 | disposition home or self-care (01) ==
PROVIDERS: Physician Assistant; Emergency Provider Emergency Medicine Emergency Medical Services; PCP Physician Assistant
DX: K21.9 Gastro-esophageal reflux disease without esophagitis (principal); R07.89 Other chest pain; R06.02 Shortness of breath; Z87.891 Personal history of nicotine dependence; Z79.899 Other long term (current) drug therapy
CPT/HCPCS: 36415; 71045; 80053; 83880; 84484; 85025; 85379; 85610; 85730; 93005; 99283; 99285

== ENCOUNTER 2022-06-02 09:15 | Emergency (ER) | payer MEDICARE, OTHER, SELFPAY ==
--- NOTE | ~2022-06-02 | XR_ITS ---
EXAMINATION: XR CHEST CLINICAL INFORMATION: Shortness of breath COMPARISON: 05/22/2022 TECHNIQUE: 2 views of the chest were obtained. FINDINGS: Heart size upper limits of normal. No evidence of CHF. There is a nodular opacity in the right upper lobe measuring about a centimeter in size which was not present previously. Old healed right rib fractures are seen. No consolidations or pleural effusions are seen calcifications are seen in the infrarenal abdominal aorta XR/XR chest 2V IMPRESSION: No acute intrathoracic disease. Question of a right upper lobe lung nodule. CT scan of the chest is recommended for further evaluation.
[2022-06-02 09:19] VITALS: BP 149/97; PULSE 96; RESP 18; TEMP 35.5; O2SAT 97; BMI 30.3
[2022-06-02 12:40] VITALS: BP 130/89; PULSE 93; RESP 16; O2SAT 97
--- NOTE | 2022-06-02 12:41 | ED.GENADULT ---
HPI - General Adult General Chief complaint: General Medical Stated complaint: Sent from Low pulse Time Seen by Provider: 06/02/22 10:15 Source: patient Mode of arrival: ambulatory Limitations: no limitations History of Present Illness HPI narrative: Patient presents to the emergency department today for evaluation of concerns about low heart rate and intermittent shortness of breath. She states that for the past couple days her acid reflux has been particularly bothersome. She has had a burning sensation to the mid chest and she has felt shortness of breath with this. Reports that she used her at home pulse oximeter and noticed that her heart rate initially was reading as 41. She Joiner monitor off in and placed it back on her hand and it was reading in the 60s. She contacted her doctor because of this and was advised to come to the emergency department. She has been taking Prilosec for her acid reflux which has been helping in addition to dicyclomine for stomach upset and nausea. She denies any recent upper respiratory or ill symptoms, she had COVID-19 earlier this month for her symptoms had completely resolved. Denies any headache, dizziness, lightheadedness, neck pain, neck stiffness, difficulty breathing, dyspnea on exertion, vomiting, numbness or tingling of the extremities. She does endorse a history of anxiety and thinks this may be contributing to her symptoms. Related Data Home Medications Medication Instructions Recorded Confirmed acetaminophen 325 mg tablet 325 mg PO QID PRN Pain 06/21/21 05/23/22 ammonium lactate 12 % topical cream 1 appl topical DAILY 11/24/21 05/23/22 cyclobenzaprine 10 mg tablet 10 mg PO BEDTIME PRN 04/06/22 05/23/22 Previous Rx's Medication Instructions Recorded fluticasone propionate 50 1 spray intranasal BID 30 days #16 11/08/21 mcg/actuation nasal grams spray,suspension valsartan 40 mg tablet 40 mg PO DAILY #90 tabs 02/07/22 alprazolam 0.25 mg tablet 0.25 mg PO TID Anxiety 30 days #90 02/28/22 tabs gabapentin 100 mg capsule 100 mg PO BEDTIME #30 caps 04/02/22 alprazolam 0.25 mg tablet 0.25 mg PO TID PRN anxiety 30 days 04/11/22 #90 tabs cholecalciferol (vitamin D3) 50 50 mcg PO DAILY #90 tabs 04/13/22 mcg (2,000 unit) tablet dextromethorphan-guaifenesin 5 10 ml PO Q4-8H PRN cough #237 mL 05/12/22 mg-100 mg/5 mL oral liquid (Robitussin Cough-Chest Congestion DM) ondansetron HCl 4 mg tablet 4 mg PO Q8H PRN nausea and 05/17/22 vomiting 7 days #21 tabs famotidine 20 mg tablet (Pepcid) 20 mg PO BID 10 days #20 tabs 05/22/22 hydroxyzine HCl 25 mg tablet 25 mg PO BID PRN itching #10 tabs 05/24/22 nystatin 100,000 unit/gram topical 1 appl topical BID #15 grams 05/24/22 cream Allergies Allergy/AdvReac Type Severity Reaction Status Date / Time Sulfa (Sulfonamide Allergy Intermediate RASH Verified 05/23/22 16:32 Antibiotics) amoxicillin [From AUGMENTIN] Allergy Unknown PER H&P Verified 05/23/22 16:32 clavulanic acid Allergy Unknown PER H&P Verified 05/23/22 16:32 [From AUGMENTIN] garlic [GARLIC] Allergy Unknown PER H&P Verified 05/23/22 16:32 metronidazole [From FLAGYL] Allergy Unknown OCULAR Verified 05/23/22 16:32 MIGRAINES penicillamine Allergy Unknown Unknown Verified 05/23/22 16:32 lisinopril AdvReac Intermediate Cough Verified 05/23/22 16:32 nitrofurantoin AdvReac Mild GI side Verified 05/23/22 16:32 effects environmental Allergy Unknown Unknown Uncoded 04/26/22 11:26 flagyl Allergy Unknown Unknown Uncoded 04/26/22 11:26 From KEFLEX Allergy Unknown RASH Uncoded 04/26/22 11:26 Metoprolol Tartrate Allergy Unknown Unknown Uncoded 04/26/22 11:26 Sulfacet-R Allergy Unknown Unknown Uncoded 04/26/22 11:26 Review of Systems Review of Systems: Constitutional : No Weight loss, No Fever, No Chills ENT/Mouth :? No sore throat, No Rhinorrhea Eyes: No Eye Pain, No Swelling Cardiovascular : pos Chest Pain, pos SOB, no Dyspnea on Exertion, No Orthopnea, No Edema, No Palpitations Respiratory : No Cough, No Sputum Gastrointestinal : pos Nausea, positive cramping, No Vomiting, No Diarrhea, No abdominal Pain, No Hematochezia, No Melena Genitourinary : No Dysuria, No Urinary Frequency Musculoskeletal : No joint pain, No Myalgias, No Joint Swelling Neuro : No Weakness, No Numbness, No Dizziness, No Headache Psych : Positive anxiety Yes all other systems are reviewed and are negative [facility] Past Medical History Attestation statement: The following information was validated with the patient. Source: old records reviewed Medical History Anxiety Diverticulitis GERD (gastroesophageal reflux disease) Heart murmur Irritable bowel Surgical History History of appendectomy History of tonsillectomy Family History Family History Father No problems noted. Mother No problems noted. Social History Social History Household Members: Children Housing: House Are you a primary rn intensive care unit to a significant other at home: No Do you presently have visiting nurse or other home services: No Alcohol intake: never Patient Tobacco Use Status: Former Tobacco user Smoked in Last 30 Days: No e-Cigarette/Vaping Use: Never Used Second Hand Smoke Exposure: No Use of substances other than those prescribed or required for medical reasons: No Advance Directives: No service: No Current occupational status: retired Cognitive needs: No Hearing needs: No Vision needs: Yes (glasses) Physical Exam ED Vital Signs: Vital Signs - 24 hr 06/02/22 09:19 06/02/22 12:40 Temperature 96 F L Pulse Rate 96 93 Respiratory Rate 18 16 Blood Pressure 149/97 H 130/89 Pulse Oximetry 97 97 Oxygen Delivery Method Room Air Room Air BMI result Body Mass Index 30.3 Appearance: Alert.?Oriented to person, place and time. No acute distress.?Normal affect. Eyes: Pupils equal, round and reactive to light.? ENT: Pharynx normal.?? Neck: Normal inspection.? Neck supple.?? CVS: Heart sounds normal. Normal heart rate and rhythm.? Pansystolic murmur 4/6. Pulses normal.?? Respiratory: No respiratory distress.? Lung sounds clear to auscultation bilaterally?? Abdomen: Soft and non-tender. Normoactive bowel sounds. Skin: Skin warm and dry.? Normal skin color.? ?? Extremities: No lower extremity edema.? No calf ttp? Neuro: Moves all extremities spontaneously. Sensation intact bilaterally.No focal neuro deficits. Ambulates with normal steady gait. Course Course Course Narrative: Patient is an 81-year-old female with a past medical history of aortic stenosis, hypertension, BPPV, irritable bowel syndrome, GERD, pulmonary nodules, neuropathy, TIA, diverticulitis, former smoker presents emergency department today for evaluation of intermittent shortness of breath, chest pain described as burning mouth of reflux, and concerns about low heart rate. Upon examination emergency department patient's heart rate has been between 80-90. I did discuss with patient that at home pulse oximeter needs to be placed on finger appropriately with hand steady and at rest, as any type of movement or an appropriate placement can impact bleeding. All the time examination her home pulse oximeter is reading accordingly with monitors in the hospital. She does admit that her burning sensation in the chest does feel similar to her acid reflux symptoms, will trial a GI cocktail in addition to the omeprazole that she is taking at home. She does report that she does not typically get intermittent shortness of breath with her heartburn, she does attribute that this may be secondary to anxiety. She has no hypoxia or tachypnea, lung sounds are clear. Discussed plan of care with patient will obtain basic labs, EKG, troponin, chest x-ray to exclude cardiopulmonary pathology. She reports that she had a Holter monitor performed with her senior ecologist about 6 months ago which she states was normal. Reevaluation(s) Reevaluation #1: CBC reveals a pancytopenia consistent with baseline. CMP is unremarkable. Troponin 5.0, consistent with prior levels obtained, EKG reveals sinus rhythm and first-degree AV block which is been noted on prior EKGs. D-dimer is negative, unlikely pulmonary embolism. Burning sensation has improved after Maalox with lidocaine. Discussed plan of care for discharge home, at this time symptoms not consistent with ACS likely secondary to her acid reflux. Reviewed worsening signs and symptoms to return back to the emergency department for. All questions were answered, patient discharged home in stable condition. Time: 14:54 Medical Decision Making Medical Records Medical records reviewed: Yes I reviewed the patient's medical records. Lab Data Lab results reviewed: Yes I reviewed the patient's lab results. Result diagrams: 06/02/22 13:32 06/02/22 13:32 Labs: Lab Results 06/02/22 06/02/22 06/02/22 Range/Units 13:32 13:32 13:32 WBC 3.1 L (4.8-10.8) X10*3/uL RBC 3.87 L (4.20-5.50) X10*6/uL Hgb 11.5 L (12.0-16.0) g/dl Hct 35.3 L (37.0-47.0) % MCV 91.2 (80.0-98.0) fL MCH 29.7 (27.0-33.0) pg MCHC 32.6 (31.0-35.0) g/dl RDW 13.2 (11.0-16.0) % Plt Count 120 L (160-400) X10*3/uL MPV 11.7 (9.4-12.3) fL Immature Gran % (Auto) 0.3 (0.0-0.4) % Neut % (Auto) 65.8 (45-73) % Lymph % (Auto) 24.9 (20-40) % Ada % (Auto) 6.4 (2-11) % Eos % (Auto) 1.6 (0-4) % Baso % (Auto) 1.0 (0-2) % Lymph # (Auto) 0.8 L (1.2-4.9) X10*3/uL Ada # (Auto) 0.2 (0.1-1.2) X10*3/uL Eos # (Auto) 0.1 (0.0-0.4) X10*3/uL Baso # (Auto) 0.0 (0.0-0.2) X10*3/uL Abs Immat Gran (auto) 0.01 (0.00-0.03) X10*3/uL Absolute Neuts (auto) 2.1 (2.0-8.3) x10*3/uL Absolute Nucleated RBC 0.000 (0.0-0.012) X10*3/uL Nucleated RBC % (auto) 0.0 (0.0-0.2) /100WBC D-Dimer High Sensitivty NG/ML Sodium 143 (135-145) mmol/L Potassium 4.3 (3.3-5.1) mmol/L Chloride 103 (96-108) mmol/L Carbon Dioxide 28 (22-29) mmol/L Anion Gap 16 (12-20) BUN 13 (9-16) mg/dL Creatinine 0.81 (0.5-1.4) mg/dL Estim Creat Clear Calc 59.9 Estimated GFR > 60 Random Glucose 91 (60-115) mg/dL Calcium 9.8 (8.4-10.2) mg/dL Total Bilirubin 0.4 (0.0-1.0) mg/dL AST 18 (5-31) U/L ALT 8 (0-31) U/L Alkaline Phosphatase 104 (39-117) U/L Troponin I High Sens 5.0 (<3.5-17.0) ng/L B-Natriuretic Peptide 144 H (<100) pg/mL Total Protein 7.4 (6.5-8.0) g/dL Albumin 4.5 (3.5-5.0) g/dL Lipase 12 (8-78) U/L 06/02/22 Range/Units 13:32 WBC (4.8-10.8) X10*3/uL RBC (4.20-5.50) X10*6/uL Hgb (12.0-16.0) g/dl Hct (37.0-47.0) % MCV (80.0-98.0) fL MCH (27.0-33.0) pg MCHC (31.0-35.0) g/dl RDW (11.0-16.0) % Plt Count (160-400) X10*3/uL MPV (9.4-12.3) fL Immature Gran % (Auto) (0.0-0.4) % Neut % (Auto) (45-73) % Lymph % (Auto) (20-40) % Ada % (Auto) (2-11) % Eos % (Auto) (0-4) % Baso % (Auto) (0-2) % Lymph # (Auto) (1.2-4.9) X10*3/uL Ada # (Auto) (0.1-1.2) X10*3/uL Eos # (Auto) (0.0-0.4) X10*3/uL Baso # (Auto) (0.0-0.2) X10*3/uL Abs Immat Gran (auto) (0.00-0.03) X10*3/uL Absolute Neuts (auto) (2.0-8.3) x10*3/uL Absolute Nucleated RBC (0.0-0.012) X10*3/uL Nucleated RBC % (auto) (0.0-0.2) /100WBC D-Dimer High Sensitivty 202 NG/ML Sodium (135-145) mmol/L Potassium (3.3-5.1) mmol/L Chloride (96-108) mmol/L Carbon Dioxide (22-29) mmol/L Anion Gap (12-20) BUN (9-16) mg/dL Creatinine (0.5-1.4) mg/dL Estim Creat Clear Calc Estimated GFR Random Glucose (60-115) mg/dL Calcium (8.4-10.2) mg/dL Total Bilirubin (0.0-1.0) mg/dL AST (5-31) U/L ALT (0-31) U/L Alkaline Phosphatase (39-117) U/L Troponin I High Sens (<3.5-17.0) ng/L B-Natriuretic Peptide (<100) pg/mL Total Protein (6.5-8.0) g/dL Albumin (3.5-5.0) g/dL Lipase (8-78) U/L Imaging Data Chest x-ray: Radiologist's impression: XR/XR chest 2V IMPRESSION: No acute intrathoracic disease. Question of a right upper lobe lung nodule. CT scan of the chest is recommended for further evaluation. ECG Data Attestation: I personally reviewed and interpreted this ECG as follows: Prior ECG tracings: available for review Interpretation: Rate: 89 Rhythm:? Sinus rhythm with first-degree AV block [place]:? Normal Normal P waves.? Normal ISABELLE.?? Normal QRS complex.?? ST T wave :??No ST elevation, no ST depression qTC: 457 prior studies:? May 2022 The study has been interpreted contemporaneously by me. Discharge Plan Discharge Clinical Impression: Chest pain, GERD (gastroesophageal reflux disease) Patient Disposition: Home, Self-Care Instructions: Chest Pain (ED), Gastroesophageal Reflux Disease (ED) Additional Instructions: Please continue taking your acid reflux medications as prescribed. Return to the emergency department with any new or worsening symptoms or concerns follow-up with your primary care provider in 1-3 days and ccardiologist as needed. Prescriptions: No Action fluticasone propionate 50 mcg/actuation spray,suspension 1 spray intranasal BID 30 Days Qty: 16 3RF valsartan 40 mg tablet 40 mg PO DAILY Qty: 90 3RF alprazolam 0.25 mg tablet 0.25 mg PO TID PRN (Reason: anxiety) 30 Days Qty: 90 1RF cholecalciferol (vitamin D3) 50 mcg (2,000 unit) tablet 50 mcg PO DAILY Qty: 90 0RF ondansetron HCl 4 mg tablet 4 mg PO Q8H PRN (Reason: nausea and vomiting) 7 Days Qty: 21 0RF acetaminophen 325 mg Tablet 325 mg PO QID PRN (Reason: Pain) gabapentin 100 mg capsule 100 mg PO BEDTIME Qty: 30 0RF Robitussin Cough-Chest [place] DM 5-100 mg/5 mL liquid 10 ml PO Q4-8H PRN (Reason: cough) Qty: 237 0RF famotidine [Pepcid] 20 mg tablet 20 mg PO BID 10 Days Qty: 20 0RF alprazolam 0.25 mg tablet 0.25 mg PO TID 30 Days Qty: 90 1RF hydroxyzine HCl 25 mg tablet 25 mg PO BID PRN (Reason: itching) Qty: 10 0RF nystatin 100,000 unit/gram cream 1 appl topical BID Qty: 15 0RF ammonium lactate 12 % cream 1 appl topical DAILY cyclobenzaprine 10 mg tablet 10 mg PO BEDTIME PRN Interventions: ED Discharge Assessment Last Done: 06/02/22 15:19 Discharge Date/Time: 06/02/22 15:19
--- NOTE | 2022-06-02 12:58 | ECG_ITS ---
Test Reason : GERD Blood Pressure : / mmHG Vent. Rate : 089 BPM Atrial Rate : 089 BPM P-R Int : 230 ms QRS Dur : 082 ms QT Int : 376 ms P-R-T Axes : 046 -07 024 degrees QTc Int : 457 ms Sinus rhythm with 1st degree A-V block Possible Anterior infarct (cited on or before 06-FEB-2022) Abnormal ECG When compared with ECG of 22-MAY-2022 15:23, [place] interval has increased Questionable change in initial forces of Septal leads Referred By: Thao Nation Electronically Signed By:PEPE PAIGE
[2022-06-02] MEDS: Lidocaine HCl Viscous 2 % 15 ML SOLUTION MUCOUS MEM (13:27)
[2022-06-02] MEDS: Magnesium Hydrox/Alum Hydrox 30 ML ORAL.SUSP PO (13:27)
[2022-06-02 13:46] LABS: MANUAL DIFF FLAG NO
[2022-06-02 13:51] LABS: Eosinophils Absolute Auto 0.1 X10*3/uL (0.0-0.4); Eosinophils Percent Auto 1.6 % (0-4); Hematocrit 35.3 % (37.0-47.0); Hemoglobin 11.5 g/dl (12.0-16.0); Imm Gran Abs Auto 0.01 X10*3/uL (0.00-0.03); Imm Gran Pct Auto 0.3 % (0.0-0.4); Lymphocytes Absolute Auto 0.8 X10*3/uL (1.2-4.9); Lymphocytes Percent Auto 24.9 % (20-40); Mean Corpuscular HGB Conc 32.6 g/dl (31.0-35.0); Mean Corpuscular Hemoglobin 29.7 pg (27.0-33.0); Mean Corpuscular Volume 91.2 fL (80.0-98.0); Mean Platelet Volume 11.7 fL (9.4-12.3); Monocytes Absolute Auto 0.2 X10*3/uL (0.1-1.2); Monocytes Percent Auto 6.4 % (2-11); Neutrophils Absolute Auto 2.1 x10*3/uL (2.0-8.3); Neutrophils Percent Auto 65.8 % (45-73); Platelet Count 120 X10*3/uL (160-400); Red Blood Count 3.87 X10*6/uL (4.20-5.50); Red Cell Distribution Width 13.2 % (11.0-16.0); White Blood Count 3.1 X10*3/uL (4.8-10.8)
[2022-06-02 13:56] LABS: D Dimer High Sensitivity 202 NG/ML
[2022-06-02 14:07] LABS: Alanine Aminotransferase 8 U/L (0-31); Albumin Level 4.5 g/dL (3.5-5.0); Alkaline Phosphatase 104 U/L (39-117); Anion Gap 16 (12-20); Aspartate Amino Transferase 18 U/L (5-31); Bilirubin Total 0.4 mg/dL (0.0-1.0); Blood Urea Nitrogen 13 mg/dL (9-16); Calcium 9.8 mg/dL (8.4-10.2); Carbon Dioxide 28 mmol/L (22-29); Chloride 103 mmol/L (96-108); Creatinine Clr Calc Pharmacy 59.9; Estimated Glomerular Filt Rate > 60; Glucose Random 91 mg/dL (60-115); Lipase 12 U/L (8-78); Potassium 4.3 mmol/L (3.3-5.1); Sodium 143 mmol/L (135-145); Total Protein 7.4 g/dL (6.5-8.0)
[2022-06-02 14:12] LABS: B Type Natriuretic Peptide 144 pg/mL (<100)
== END 2022-06-02 15:19 | disposition home or self-care (01) ==
PROVIDERS: Nurse Practitioner Family; Emergency Provider Emergency Medicine; PCP Physician Assistant
DX: R07.9 Chest pain, unspecified (principal); K21.9 Gastro-esophageal reflux disease without esophagitis; R06.02 Shortness of breath; I10 Essential (primary) hypertension; Z87.891 Personal history of nicotine dependence; Z86.73 Personal history of transient ischemic attack (TIA), and cerebral infarction without residual deficits; Z79.899 Other long term (current) drug therapy
CPT/HCPCS: 36415; 71046; 80053; 83690; 83880; 84484; 85025; 85379; 93005; 99283; 99284

== ENCOUNTER 2022-06-04 18:24 | Emergency (ER) | payer MEDICARE, OTHER, SELFPAY ==
[2022-06-04 18:25] VITALS: BP 157/108; PULSE 96; RESP 18; TEMP 36.6; O2SAT 97; BMI 29.9
--- NOTE | 2022-06-04 18:31 | ECG_ITS ---
Test Reason : CHEST PAIN Blood Pressure : / mmHG Vent. Rate : 094 BPM Atrial Rate : 094 BPM P-R Int : 206 ms QRS Dur : 084 ms QT Int : 362 ms P-R-T Axes : 049 -11 030 degrees QTc Int : 452 ms Normal sinus rhythm Possible Left atrial enlargement Borderline ECG When compared with ECG of 02-JUN-2022 13:21, [place] interval has decreased Referred By: Generic ED Physician Electronically Signed By:PEPE PAIGE
[2022-06-04 18:54] LABS: Basophils Percent Auto 0.5 % (0-2); Hemoglobin 11.3 g/dl (12.0-16.0); Imm Gran Abs Auto 0.01 X10*3/uL (0.00-0.03); Imm Gran Pct Auto 0.3 % (0.0-0.4); MANUAL DIFF FLAG SCAN; Mean Platelet Volume 11.8 fL (9.4-12.3); PLT CLUMP 1; SCAN SMEAR FLAG 1
[2022-06-04 18:56] LABS: Eosinophils Absolute Auto 0.1 X10*3/uL (0.0-0.4); Eosinophils Percent Auto 1.8 % (0-4); Hematocrit 34.4 % (37.0-47.0); Lymphocytes Absolute Auto 0.9 X10*3/uL (1.2-4.9); Lymphocytes Percent Auto 22.4 % (20-40); Mean Corpuscular HGB Conc 32.8 g/dl (31.0-35.0); Mean Corpuscular Hemoglobin 29.9 pg (27.0-33.0); Monocytes Absolute Auto 0.3 X10*3/uL (0.1-1.2); Monocytes Percent Auto 7.4 % (2-11); Neutrophils Absolute Auto 2.7 x10*3/uL (2.0-8.3); Neutrophils Percent Auto 67.6 % (45-73); Red Blood Count 3.78 X10*6/uL (4.20-5.50); Red Cell Distribution Width 13.2 % (11.0-16.0)
[2022-06-04 18:58] LABS: Platelet Count 111 X10*3/uL (160-400); White Blood Count 3.9 X10*3/uL (4.8-10.8)
[2022-06-04 18:59] LABS: SLIDE REVIEW VERIFIED
[2022-06-04 19:13] LABS: Troponin-I High Sensitivity 5.4 ng/L (<3.5-17.0)
[2022-06-04 19:25] LABS: Alanine Aminotransferase 9 U/L (0-31); Albumin Level 4.5 g/dL (3.5-5.0); Alkaline Phosphatase 99 U/L (39-117); Anion Gap 19 (12-20); Aspartate Amino Transferase 17 U/L (5-31); Bilirubin Total 0.6 mg/dL (0.0-1.0); Blood Urea Nitrogen 15 mg/dL (9-16); Calcium 9.8 mg/dL (8.4-10.2); Carbon Dioxide 26 mmol/L (22-29); Chloride 102 mmol/L (96-108); Creatinine Clr Calc Pharmacy 46.8; Estimated Glomerular Filt Rate 51; Glucose Random 86 mg/dL (60-115); Potassium 4.5 mmol/L (3.3-5.1); Sodium 142 mmol/L (135-145); Total Protein 7.4 g/dL (6.5-8.0)
--- NOTE | 2022-06-04 19:43 | ED.GENADULT ---
HPI - General Adult General Chief complaint: General Medical Stated complaint: epigastric pain Time Seen by Provider: 06/04/22 19:38 Source: patient Mode of arrival: ambulatory Limitations: no limitations History of Present Illness HPI narrative: Patient is an 81 year old female presenting to the emergency department today with epigastric pain. Patient states that she has been having worsening burning pain in her epigastric area. Patient states that it makes her anxious and as she gets more worked up, it seems to burn more. Patient states that she is a patient of Dr. Belle but has not seen him in quite some time. Patient denies any dizziness, lightheadedness, nausea, vomiting, fever, chills, blurry vision, double vision, loss of vision, chest pain, difficulty breathing, shortness of breath, back pain, night sweats, pain with urination, increased urinary frequency, increased urinary urgency, blood in her urine or stool, syncope or a near syncopal episode, recent trauma or falls, bowel incontinence, bladder incontinence, bowel retention, bladder retention, or any other complaints at this time. Onset (ago): week(s) Location: abdomen Radiation: non-radiation Severity: mild Severity scale (1-10): 2 Quality: burning Pain Consistency: intermittent Relieving factors: none Exacerbating factors: none Associated symptoms: denies other symptoms Treatments prior to arrival: none Related Data Home Medications Medication Instructions Recorded Confirmed acetaminophen 325 mg tablet 325 mg PO QID PRN Pain 06/21/21 05/23/22 ammonium lactate 12 % topical cream 1 appl topical DAILY 11/24/21 05/23/22 cyclobenzaprine 10 mg tablet 10 mg PO BEDTIME PRN 04/06/22 05/23/22 Previous Rx's Medication Instructions Recorded fluticasone propionate 50 1 spray intranasal BID 30 days #16 11/08/21 mcg/actuation nasal grams spray,suspension valsartan 40 mg tablet 40 mg PO DAILY #90 tabs 02/07/22 alprazolam 0.25 mg tablet 0.25 mg PO TID Anxiety 30 days #90 02/28/22 tabs gabapentin 100 mg capsule 100 mg PO BEDTIME #30 caps 04/02/22 alprazolam 0.25 mg tablet 0.25 mg PO TID PRN anxiety 30 days 04/11/22 #90 tabs cholecalciferol (vitamin D3) 50 50 mcg PO DAILY #90 tabs 08/10/22 mcg (2,000 unit) tablet dextromethorphan-guaifenesin 5 10 ml PO Q4-8H PRN cough #237 mL 05/12/22 mg-100 mg/5 mL oral liquid (Robitussin Cough-Chest Congestion DM) ondansetron HCl 4 mg tablet 4 mg PO Q8H PRN nausea and 05/17/22 vomiting 7 days #21 tabs famotidine 20 mg tablet (Pepcid) 20 mg PO BID 10 days #20 tabs 05/22/22 hydroxyzine HCl 25 mg tablet 25 mg PO BID PRN itching #10 tabs 05/24/22 nystatin 100,000 unit/gram topical 1 appl topical BID #15 grams 05/24/22 cream Allergies Allergy/AdvReac Type Severity Reaction Status Date / Time Sulfa (Sulfonamide Allergy Intermediate RASH Verified 05/23/22 16:32 Antibiotics) amoxicillin [From AUGMENTIN] Allergy Unknown PER H&P Verified 05/23/22 16:32 clavulanic acid Allergy Unknown PER H&P Verified 05/23/22 16:32 [From AUGMENTIN] garlic [GARLIC] Allergy Unknown PER H&P Verified 05/23/22 16:32 metronidazole [From FLAGYL] Allergy Unknown OCULAR Verified 05/23/22 16:32 MIGRAINES penicillamine Allergy Unknown Unknown Verified 05/23/22 16:32 lisinopril AdvReac Intermediate Cough Verified 05/23/22 16:32 nitrofurantoin AdvReac Mild GI side Verified 05/23/22 16:32 effects environmental Allergy Unknown Unknown Uncoded 04/26/22 11:26 flagyl Allergy Unknown Unknown Uncoded 04/26/22 11:26 From KEFLEX Allergy Unknown RASH Uncoded 04/26/22 11:26 Metoprolol Tartrate Allergy Unknown Unknown Uncoded 04/26/22 11:26 Sulfacet-R Allergy Unknown Unknown Uncoded 04/26/22 11:26 Review of Systems Constitutional: Constitutional: Reports no additional constitutional complaints, Denies chills, Denies fever(s) and Denies night sweats Eyes: Eyes: Reports no additional eye complaints, Denies blurry vision, Denies change in vision, Denies diplopia, Denies eye discharge, Denies loss of vision and Denies eye pain ENT: Denies dizziness Cardiovascular: Cardiovascular: Reports no additional cardiovascular complaints, Denies chest pain, Denies lightheadedness, Denies Loss of Consciousness and Denies dyspnea Respiratory: Respiratory: Reports no additional respiratory complaints and Denies dyspnea Gastrointestinal: Gastrointestinal: Reports no additional gastrointestinal complaints, Reports abdominal pain (epigastric pain), Denies melena, Denies hematochezia, Denies change in bowel habits and Denies change in stool character Genitourinary: Genitourinary: Denies hematuria, Denies urinary frequency, Denies dysuria, Denies urinary incontinence, Denies urinary hesitancy and Denies urinary urgency Musculoskeletal: Musculoskeletal: Reports no additional musculoskeletal complaints, Denies numbness and Denies tingling Neurologic: Denies dizziness, Denies loss of vision, Denies numbness and Denies tingling Psychiatric: Psychiatric: Reports no additional psychiatric complaints Endocrine: Endocrine: Reports no additional endocrine complaints Hematologic/Lymphatic: Hematologic/Lymphatic: Reports no additional hematologic/lymphatic complaints Allergic/Immunologic: Allergic/Immunologic: Reports no additional allergic/immunologic complaints [facility] Past Medical History Attestation statement: The following information was validated with the patient. Source: old records reviewed Medical History Anxiety Diverticulitis GERD (gastroesophageal reflux disease) Heart murmur Irritable bowel Surgical History History of appendectomy History of tonsillectomy Family History Family History Father No problems noted. Mother No problems noted. Social History Social History Household Members: Children Housing: House Are you a primary health care aide to a significant other at home: No Do you presently have visiting nurse or other home services: No Alcohol intake: never Patient Tobacco Use Status: Former Tobacco user e-Cigarette/Vaping Use: Never Used Second Hand Smoke Exposure: No Advance Directives: No service: No Current occupational status: retired Cognitive needs: No Hearing needs: No Vision needs: Yes (glasses) Physical Exam ED Vital Signs: Vital Signs - 24 hr 06/04/22 18:25 Temperature 97.9 F Pulse Rate 96 Respiratory Rate 18 Blood Pressure 157/108 H Pulse Oximetry 97 Oxygen Delivery Method Room Air BMI result Body Mass Index 29.9 Const General: cooperative, no acute distress, alert and awake Nutritional Appearance: well nourished Orientation/consciousness: patient oriented x3 Limitations: no limitations HENMT Head: Yes normal to inspection and Yes atraumatic Ears: hearing grossly normal bilaterally and external ears normal General nose exam: Normal external nose present, no nasal discharge noted and no epistaxis Face and sinus: Yes normal facial exam, No abrasion and No laceration Mouth: Normal oral and palatal mucosa present, no drooling and no muffled voice Eyes General: appearance normal, both eyes and all related structures Periorbital: periorbital findings normal Eyelids: Yes eyelids normal Conjunctivae: conjunctivae normal Pupils: Equal, round and reactive pupils present EOM: EOMs intact bilaterally Neck Neck: Yes normal visual inspection, Yes full ROM and Yes no lymphadenopathy Chest Chest palpation & inspection: normal inspection of the chest Resp Effort & Inspection: normal respiratory effort and able to speak in complete sentences Auscultation: clear to auscultation bilaterally Cardio Rate: regular rate Rhythm: regular rhythm GI Inspection: Yes normal to inspection Palpation (GI): Soft to palpation, not firm, nontender and no guarding Neuro General: patient oriented x3 and moves all extremities Cranial nerves: Yes Equal, round and reactive pupils present Cognition (Neuro): normal cognition Motor exam (neuro): 5/5 motor strength present throughout Sensory Exam: Normal double simultaneous stimulation for sensation Coordination: [id number] test normal Extrem General: Yes normal to inspection, Yes full ROM and Yes capillary refill normal Psych Appearance: grossly normal Mental Status: mental status grossly normal Affect: normal affect Attitude: cooperative Thought process: Normal thought process present Thought content: Normal thought content present Insight: Good insight present (Psych) Medical Decision Making MDM Narrative Medical decision making narrative: Patient is an 81 year old female presenting to the emergency department today with epigastric pain. Patient's physical exam was unremarkable. Patient's blood work was unremarkable. Patient's EKG was unremarkable. Patient's previous chest x-rays on 06/02, 05/22, 05/12 all showed no acute process. I explained my physical exam findings as well as all test results to the patient. I answered all questions asked by the patient. At this time, the patient's clinical presentation is most consistent with worsening acid reflux. I instructed the patient to double her omperazole at home and follow up with her GI provider. I stressed the importance of the patient taking her medication as instructed. I stressed the importance of the patient following up with her primary care provider and a GI specialist. I stressed the importance of the patient returning to the emergency department immediately if her symptoms were to worsen or if she were to develop any dizziness, shortness of breath, difficulty breathing, chest pain, blurry vision, loss of vision, nausea, vomiting, abdominal pain, fever, chills, back pain, or any other complaints. Patient verbalized agreement and understanding with this treatment plan and discharge. Medical Records Medical records reviewed: Yes I reviewed the patient's medical records. Lab Data Lab results reviewed: Yes I reviewed the patient's lab results. Result diagrams: 06/04/22 18:47 06/04/22 18:47 Labs: Lab Results 06/04/22 06/04/22 06/04/22 Range/Units 18:47 18:47 18:47 WBC 3.9 L (4.8-10.8) X10*3/uL RBC 3.78 L (4.20-5.50) X10*6/uL Hgb 11.3 L (12.0-16.0) g/dl Hct 34.4 L (37.0-47.0) % MCV 91.0 (80.0-98.0) fL MCH 29.9 (27.0-33.0) pg MCHC 32.8 (31.0-35.0) g/dl RDW 13.2 (11.0-16.0) % Plt Count 111 L (160-400) X10*3/uL MPV 11.8 (9.4-12.3) fL Immature Gran % (Auto) 0.3 (0.0-0.4) % Neut % (Auto) 67.6 (45-73) % Lymph % (Auto) 22.4 (20-40) % [place] % (Auto) 7.4 (2-11) % Eos % (Auto) 1.8 (0-4) % Baso % (Auto) 0.5 (0-2) % Lymph # (Auto) 0.9 L (1.2-4.9) X10*3/uL [place] # (Auto) 0.3 (0.1-1.2) X10*3/uL Eos # (Auto) 0.1 (0.0-0.4) X10*3/uL Baso # (Auto) 0.0 (0.0-0.2) X10*3/uL Abs Immat Gran (auto) 0.01 (0.00-0.03) X10*3/uL Absolute Neuts (auto) 2.7 (2.0-8.3) x10*3/uL Absolute Nucleated RBC 0.000 (0.0-0.012) X10*3/uL Nucleated RBC % (auto) 0.0 (0.0-0.2) /100WBC Smear Tech's Comments VERIFIED Sodium 142 (135-145) mmol/L Potassium 4.5 (3.3-5.1) mmol/L Chloride 102 (96-108) mmol/L Carbon Dioxide 26 (22-29) mmol/L Anion Gap 19 (12-20) BUN 15 (9-16) mg/dL Creatinine 1.03 (0.5-1.4) mg/dL Estim Creat Clear Calc 46.8 Estimated GFR 51 Random Glucose 86 (60-115) mg/dL Calcium 9.8 (8.4-10.2) mg/dL Total Bilirubin 0.6 (0.0-1.0) mg/dL AST 17 (5-31) U/L ALT 9 (0-31) U/L Alkaline Phosphatase 99 (39-117) U/L Troponin I High Sens 5.4 (<3.5-17.0) ng/L Total Protein 7.4 (6.5-8.0) g/dL Albumin 4.5 (3.5-5.0) g/dL ECG Data Attestation: I personally reviewed and interpreted this ECG as follows: Prior ECG tracings: available for review Interpretation: Vent. Rate: 094 BPM ? ? Atrial Rate: 094 BPM P-R Int: 206 ms? QRS Dur: 084 ms QT Int: 362 ms ? ? ? P-R-T Axes: 049 -11 030 degrees QTc Int: 452 ms ? Normal sinus rhythm Possible Left atrial enlargement Borderline ECG When compared with ECG of 02-JUN-2022 13:21, No significant change was found DD/ [id number] Discharge Plan Discharge Clinical Impression: GERD (gastroesophageal reflux disease) Patient Disposition: Home, Self-Care Instructions: Gastroesophageal Reflux Disease (ED) Additional Instructions: Double your omeprazole as we discussed. Follow up with your primary care provider and your GI doctor. Return to the emergency department immediately if your symptoms worsen or if you develop any dizziness, shortness of breath, difficulty breathing, chest pain, blurry vision, loss of vision, nausea, vomiting, abdominal pain, fever, chills, back pain, or any other complaints. Prescriptions: No Action fluticasone propionate 50 mcg/actuation spray,suspension 1 spray intranasal BID 30 Days Qty: 16 3RF valsartan 40 mg tablet 40 mg PO DAILY Qty: 90 3RF alprazolam 0.25 mg tablet 0.25 mg PO TID PRN (Reason: anxiety) 30 Days Qty: 90 1RF cholecalciferol (vitamin D3) 50 mcg (2,000 unit) tablet 50 mcg PO DAILY Qty: 90 0RF ondansetron HCl 4 mg tablet 4 mg PO Q8H PRN (Reason: nausea and vomiting) 7 Days Qty: 21 0RF acetaminophen 325 mg Tablet 325 mg PO QID PRN (Reason: Pain) gabapentin 100 mg capsule 100 mg PO BEDTIME Qty: 30 0RF Robitussin Cough-Chest [place] DM 5-100 mg/5 mL liquid 10 ml PO Q4-8H PRN (Reason: cough) Qty: 237 0RF famotidine [Pepcid] 20 mg tablet 20 mg PO BID 10 Days Qty: 20 0RF alprazolam 0.25 mg tablet 0.25 mg PO TID 30 Days Qty: 90 1RF hydroxyzine HCl 25 mg tablet 25 mg PO BID PRN (Reason: itching) Qty: 10 0RF nystatin 100,000 unit/gram cream 1 appl topical BID Qty: 15 0RF ammonium lactate 12 % cream 1 appl topical DAILY cyclobenzaprine 10 mg tablet 10 mg PO BEDTIME PRN Referrals: Nick Gomez PA-C [Primary Care Provider] - Anatoliy Escobar [Physician] - Interventions: ED Discharge Assessment Last Done: 06/04/22 20:18 Discharge Date/Time: 06/04/22 20:19 Print Language: Spanish
== END 2022-06-04 20:19 | disposition home or self-care (01) ==
PROVIDERS: Emergency Provider Internal Medicine; PCP Physician Assistant
DX: K21.9 Gastro-esophageal reflux disease without esophagitis (principal); R10.13 Epigastric pain; Z87.891 Personal history of nicotine dependence; I10 Essential (primary) hypertension; Z79.899 Other long term (current) drug therapy
CPT/HCPCS: 36415; 80053; 84484; 85025; 93005; 99282; 99283

== ENCOUNTER → 2022-06-09 09:47 | Outpatient (BNVA) | payer MEDICARE, OTHER, SELFPAY | PROVIDERS: PCP Physician Assistant; Referring Provider Physician Assistant; Visit Provider Internal Medicine | DX: I35.0 Nonrheumatic aortic (valve) stenosis (principal); R07.2 Precordial pain; I10 Essential (primary) hypertension; F41.9 Anxiety disorder, unspecified | CPT/HCPCS: 99212 ==

== ENCOUNTER 2022-06-14 14:15 | Outpatient (REF) | payer MEDICARE, OTHER, SELFPAY ==
--- NOTE | ~2022-06-14 | CT_ITS ---
EXAMINATION: CT CHEST WITH CONTRAST CLINICAL INFORMATION: Pulmonary nodule COMPARISON: Previous chest x-ray most recent May 2022 TECHNIQUE: Multidetector volumetric CT imaging of the chest was obtained after the administration of 65 mL of Omnipaque 350 intravenous contrast without immediate adverse reactions. Axial MIP volume rendering provided. Sagittal and coronal reformatted images were obtained. This CT examination was performed using dose optimization techniques as appropriate, variously including the following: *Automated exposure control *Adjustment of mA and/or kV according to patient size (this includes techniques or standardized protocols for targeted exams where dose is matched to indication/reason for exam; i.e. extremities or head) *Use of iterative reconstruction technique DLP: 112 mGy-cm FINDINGS: LUNGS: There is evidence of emphysema. There is mild biapical pleural and parenchymal scarring. There is an azygos lobe. There is a 5 mm right middle lobe nodule axial image 278 series 5. There is a 5 mm calcified right middle lobe nodule versus calcification spine. There is a 2 mm peripheral or subpleural left upper lobe nodule axial image 177 series 5. There is a 2 mm peripheral or subpleural right upper lobe nodule axial image 120 series 5. There is a 2 mm peripheral or subpleural left lower lobe nodule axial image 232 series 5. The lungs are otherwise clear. MEDIASTINUM: Severe aortic valve calcification. The thoracic aorta is upper normal in size. There is mild focal dilatation of the aortic arch measuring up to 4 cm. The heart size is normal. There is no pericardial effusion. There is coronary artery calcification. There are no enlarged hilar or mediastinal lymph nodes. There is a 1 x 2 cm left thyroid nodule. CORONARY ARTERY CALCIFICATION: None visualized on this study. PLEURA: There is no pleural effusion. No pleural mass or thickening. AXILLA: No lymphadenopathy. UPPER ABDOMEN: There are 2 small left renal stones. There is a 1 cm low-attenuation lesion high in the dome of the liver probably representing a cyst. OSSEOUS STRUCTURES: There is increased thoracic kyphosis and degenerative changes of the spine. CT/CT chest w IV con IMPRESSION: Emphysema. Small pulmonary nodules, largest measuring 5 mm right middle lobe. According to the UPDATED 2017 Fleischner Society recommendations, the advised follow-up imaging for less than 6 mm solid nodule: Low risk, no chest CT follow-up and high risk, optional chest CT follow-up in one year. Coronary artery and aortic valve calcification. Upper normal-size thoracic aorta and mild focal dilatation of the aortic arch. 1 x 2 cm left thyroid nodule. This could be better evaluated with ultrasound. Fleischner guidelines were followed.
== END 2022-06-14 14:16 | disposition home or self-care (01) ==
LOC: HO.CT 14:15
PROVIDERS: PCP Physician Assistant; Visit Provider Physician Assistant
DX: R91.1 Solitary pulmonary nodule (principal)
CPT/HCPCS: 71260

== ENCOUNTER 2022-06-24 13:48 | Outpatient (REF) | payer MEDICARE, OTHER, SELFPAY ==
--- NOTE | ~2022-06-24 | XR_ITS ---
EXAMINATION: XR CHEST CLINICAL INFORMATION: Cough. COMPARISON: June 02, 2022. TECHNIQUE: 2 views of the chest were obtained. XR/XR chest 2V FINDINGS/IMPRESSION: There is no acute radiographic finding. No acute infiltrate, effusion, or pneumothorax is seen. Minimal biapical fibrotic changes appear similar. Normal variant azygous fissure. Heart appears normal in size. Atherosclerotic, uncoiled aorta, suggesting hypertension. Degenerative changes of the spine. Old, healed right rib fracture.
== END 2022-06-24 13:49 | disposition home or self-care (01) ==
LOC: HO.HMGCX 13:48
PROVIDERS: PCP Physician Assistant
DX: R05.9 Cough, unspecified (principal)
CPT/HCPCS: 71046

== ENCOUNTER 2022-07-01 18:41 | Emergency (ER) | payer MEDICARE, OTHER, SELFPAY ==
--- NOTE | 2022-07-01 | ECG_ITS ---
Test Reason : weakness Blood Pressure : / mmHG Vent. Rate : 100 BPM Atrial Rate : 100 BPM P-R Int : 192 ms QRS Dur : 086 ms QT Int : 358 ms P-R-T Axes : 043 -07 031 degrees QTc Int : 461 ms Sinus tachycardia Normal ECG When compared with ECG of 04-JUN-2022 18:36, No significant change was found Referred By: Generic ED Physician Electronically Signed By:RADHA CAMARA MD
--- NOTE | ~2022-07-01 | XR_ITS ---
EXAMINATION: XR CHEST CLINICAL INFORMATION: Chest discomfort. Hypertension. COMPARISON: 06/24/2022 TECHNIQUE: Frontal view of the chest was obtained. FINDINGS: Lungs are hyperexpanded. Cardiac silhouette is mildly enlarged. Calcific atherosclerosis is present in the thoracic aorta. No consolidation, pneumothorax, or pleural effusion. As the fissure. No acute osseous findings. Bones are osteopenic. Old healed right-sided rib fractures. XR/XR chest 1V IMPRESSION: 1. No acute pulmonary findings. 2. Borderline cardiomegaly.
--- NOTE | ~2022-07-01 | CT_ITS ---
EXAMINATION: CT HEAD WITHOUT CONTRAST CLINICAL INFORMATION: 2. Findings concerns. Hypertension. COMPARISON: April 02, 2022 TECHNIQUE: Contiguous axial imaging was performed from the skull base to vertex without intravenous administration of contrast. This CT examination was performed using dose optimization techniques as appropriate, variously including the following: *Automated exposure control *Adjustment of mA and/or kV according to patient size (this includes techniques or standardized protocols for targeted exams where dose is matched to indication/reason for exam; i.e. extremities or head) *Use of iterative reconstruction technique DLP: 652 mGy-cm FINDINGS: No intracranial hemorrhage is identified. No significant mass effect or midline structure shift is seen. No abnormal extra-axial fluid collection is seen. The third and lateral ventricles are prominent out of proportion to sulci and cisterns and clinical correlation with normal pressure hydrocephalus should be considered. There is a large amount of periventricular white matter low density present consistent with microangiopathy however some about the frontal horns could also be related to transependymal flow of CSF. Visualized paranasal sinuses and mastoid air cells unremarkable. CT/CT head/brain wo IV con IMPRESSION: No acute intracranial pathology. Findings consistent with microangiopathy. Findings consistent with normal pressure hydrocephalus.
[2022-07-01 18:49] VITALS: BP 213/111; PULSE 100; RESP 20; TEMP 36.5; O2SAT 98; BMI 30.6
[2022-07-01 19:32] VITALS: BP 187/110; PULSE 92; RESP 18; TEMP 36.9; O2SAT 96
[2022-07-01 19:58] VITALS: BP 173/99; PULSE 95; RESP 16; O2SAT 95
[2022-07-01 20:00] VITALS: BP 173/98; PULSE 89; RESP 16; O2SAT 95
[2022-07-01 20:03] LABS: Basophils Percent Auto 0.5 % (0-2); Imm Gran Abs Auto 0.01 X10*3/uL (0.00-0.03); PLT CLUMP 1; SCAN SMEAR FLAG 1
[2022-07-01 20:04] LABS: Appearance Urine Clear; Color Urine Yellow; Glucose Urine UA Negative (Negative); Leukocyte Esterase Urine Negative (Negative); Nitrite Urine Negative (Negative); PH 6.5 (5.0-9.0); Specific Gravity - Urine <= 1.005 (1.005-1.025); Urine Blood Negative (Negative); Urine Ketones Negative (Negative); Urine Protein Negative (Neg-Trace)
[2022-07-01 20:05] LABS: Eosinophils Absolute Auto 0.1 X10*3/uL (0.0-0.4); Eosinophils Percent Auto 2.5 % (0-4); Hematocrit 35.8 % (37.0-47.0); Hemoglobin 11.5 g/dl (12.0-16.0); Imm Gran Pct Auto 0.2 % (0.0-0.4); Lymphocytes Absolute Auto 1.1 X10*3/uL (1.2-4.9); Mean Corpuscular HGB Conc 32.1 g/dl (31.0-35.0); Mean Corpuscular Hemoglobin 29.9 pg (27.0-33.0); Mean Corpuscular Volume 93.2 fL (80.0-98.0); Mean Platelet Volume 11.6 fL (9.4-12.3); Monocytes Absolute Auto 0.3 X10*3/uL (0.1-1.2); Monocytes Percent Auto 6.1 % (2-11); Neutrophils Absolute Auto 2.6 x10*3/uL (2.0-8.3); Neutrophils Percent Auto 64.7 % (45-73); Red Blood Count 3.84 X10*6/uL (4.20-5.50); Red Cell Distribution Width 13.2 % (11.0-16.0)
--- NOTE | 2022-07-01 20:19 | ED_ITS ---
HPI - General Adult General Chief complaint: General Medical Stated complaint: high BP Time Seen by Provider: 07/01/22 20:19 Source: patient Mode of arrival: ambulatory Limitations: no limitations History of Present Illness HPI narrative: 81-year-old female presents for evaluation for an elevated blood pressure, se nsation of feeling weak in the extremities, and chills. Patient has a history of normal pressure hydrocephalus, takes valsartan for elevated blood pressure, has a history of TIA, BPPV, vitamin B12 deficiency, IBS, aortic stenosis with murmur, GERD, diverticulitis history. She does not report any palpitations or chest pain, denies abdominal pain abdominal distention dysuria hematuria fevers, diarrhea, melena, hematochezia, abnormal gait, loss of balance, changes in vision, or confusion. Onset (ago): hour(s) (Within the hour of arrival) Radiation: non-radiation Severity: mild Associated symptoms: denies other symptoms Treatments prior to arrival: none Related Data Home Medications Medication Instructions Recorded Confirmed acetaminophen 325 mg tablet 325 mg PO QID PRN Pain 06/21/21 06/25/22 omeprazole 40 mg capsule,delayed 40 mg PO BID 06/08/22 06/25/22 release Previous Rx's Medication Instructions Recorded fluticasone propionate 50 1 spray intranasal BID 30 days #16 11/08/21 mcg/actuation nasal grams spray,suspension alprazolam 0.25 mg tablet 0.25 mg PO TID PRN anxiety 30 days 04/11/22 #90 tabs cholecalciferol (vitamin D3) 50 50 mcg PO DAILY #90 tabs 04/13/22 mcg (2,000 unit) tablet valsartan 40 mg tablet 40 mg PO BID #100 tabs 06/16/22 ondansetron HCl 4 mg tablet 4 mg PO Q8H PRN nausea and 06/25/22 vomiting 7 days #21 tabs oseltamivir 75 mg capsule (Tamiflu) 75 mg PO DAILY #5 caps 06/25/22 valsartan 160 mg tablet 160 mg PO DAILY #30 tabs 07/01/22 Allergies Allergy/AdvReac Type Severity Reaction Status Date / Time Sulfa (Sulfonamide Allergy Intermediate RASH Verified 06/25/22 15:19 Antibiotics) amoxicillin [From AUGMENTIN] Allergy Unknown PER H&P Verified 06/25/22 15:19 clavulanic acid Allergy Unknown PER H&P Verified 06/25/22 15:19 [From AUGMENTIN] garlic [GARLIC] Allergy Unknown PER H&P Verified 06/25/22 15:19 metronidazole [From FLAGYL] Allergy Unknown OCULAR Verified 06/25/22 15:19 MIGRAINES penicillamine Allergy Unknown Unknown Verified 06/25/22 15:19 lisinopril AdvReac Intermediate Cough Verified 06/25/22 15:19 nitrofurantoin AdvReac Mild GI side Verified 06/25/22 15:19 effects environmental Allergy Unknown Unknown Uncoded 06/25/22 15:19 flagyl Allergy Unknown Unknown Uncoded 06/25/22 15:19 From KEFLEX Allergy Unknown RASH Uncoded 06/25/22 15:19 Metoprolol Tartrate Allergy Unknown Unknown Uncoded 06/25/22 15:19 Sulfacet-R Allergy Unknown Unknown Uncoded 06/25/22 15:19 Review of Systems Review of Systems: Constitutional: No Fever, positive Chills ENT/Mouth: No Ear Pain, No Hoarseness, No sore throat Eyes: No Eye Pain, No Swelling, No Redness, No Foreign Body Cardiovascular: No Chest Pain, No SOB Respiratory: No Cough, No Dyspnea Gastrointestinal: No Nausea, No Vomiting, No Diarrhea, No abdominal Pain Genitourinary: No Dysuria, No Hematuria Musculoskeletal: No joint pain, No Myalgias, No Joint Swelling Skin: No Skin lacerations, No rash Neuro: Positive extremity Weakness, No Numbness, No Paresthesias, No Loss of Consciousness, No Dizziness, No Headache Psych: No Anxiety/Panic, No Depression Heme/Lymph: no easy bruising, no Lymphadenopathy Endocrine: No Polyuria, No Polydipsia Yes all other systems are reviewed and are negative [facility] Past Medical History Attestation statement: The following information was validated with the patient. Source: old records reviewed Medical History Anxiety Diverticulitis Heart murmur Irritable bowel Surgical History History of appendectomy History of tonsillectomy Family History Family History Father No problems noted. Mother No problems noted. Social History Social History Household Members: Children Housing: House Are you a primary manager critical care to a significant other at home: No Do you presently have visiting nurse or other home services: No Alcohol intake: never Patient Tobacco Use Status: Former Tobacco user e-Cigarette/Vaping Use: Never Used Second Hand Smoke Exposure: No Use of substances other than those prescribed or required for medical reasons: No Advance Directives: No service: No Current occupational status: retired Cognitive needs: No Hearing needs: No Vision needs: Yes (glasses) Physical Exam ED Vital Signs: Vital Signs - 24 hr 07/01/22 18:49 07/01/22 19:32 07/01/22 19:58 Temperature 97.7 F 98.4 F Pulse Rate 100 92 95 Respiratory Rate 20 18 16 Blood Pressure 213/111 H 187/110 H 173/99 H Pulse Oximetry 98 96 95 Oxygen Delivery Method Room Air Room Air Room Air 07/01/22 20:00 Temperature Pulse Rate 89 Respiratory Rate 16 Blood Pressure 173/98 H Pulse Oximetry 95 Oxygen Delivery Method Room Air BMI result Body Mass Index 30.6 Appearance: Alert. Oriented X3. No acute distress. Eyes: Pupils equal, round and reactive to light. EOMI. Sclera nonicteric. ENT: Pharynx normal. Neck: Normal inspection. Neck supple. No vertebral tenderness or step-offs. CVS: Normal heart rate and rhythm. Pulses normal. Respiratory: No respiratory distress. Breath sounds normal. Abdomen: Soft and nontender. Skin: Skin warm and dry. Normal skin color. Normal skin turgor. Extremities: No lower extremity edema. Gait well-balanced well coordinated. Neuro: No motor deficit. No sensory deficit. Cranial nerves 2-12 intact. NIH Stroke Scale Internal: Initial- Upon Arrival Level of Consciousness: Alert Level of Consciousness Questions: Answers both questions correctly Level of Consciousness Commands: Performs both tasks correctly Best Gaze: Normal Visual: No visual loss Facial Palsy: Normal Motor Arm (Right): No drift Motor Arm (Left): No drift Motor Leg (Right): No drift Motor Leg (Left): No drift Limb Ataxia: Absent Sensory: Normal Best Language: No aphasia Dysarthia: Normal Extinction and Inattention: No abnormality Score: 0 Course Course Course Narrative: 81-year-old female presents with elevated blood pressure, reading and of 220/120 at home. Patient does have a history of normal pressure hydrocephalus, and evaristo es valsartan 40 mg twice a day with the option to take an additional 40 to equal 120 mg. Patient did discuss this with her primary care physician who referred her to the emergency department. She is followed by Dr. Duffy for aortic valve stenosis and murmur. Patient states feel extremity weakness, but denies fevers, chills, and any other concerning symptoms. She does not report any stroke-like symptoms, denies cauda equina, and has an even steady gait. Considering patient's history of hydrocephalus, will order CT scan of head, and rule out ACS. 20:30 lab values are stable and within her normal limits, urinalysis is negative. Chest x-ray is negative. CT scan is pending. 21:30 CT scan head, negative for acute findings. Discussion with Dr. Vegas, plan of care is to increase valsartan to 160 mg daily verses 40 mg twice a day. Is advised the patient follow-up with her nurse practitioner, primary care physician for these blood pressure medication changes. Patient verbalized understanding of and agrees plan of care discharge home. Verbalized understanding of signs and symptoms indicating need for emergent intervention. Medical Decision Making Differential Diagnosis Differential Diagnosis: Normal pressure hydrocephalus, CVA, ACS Medical Records Medical records reviewed: Yes I reviewed the patient's medical records. Lab Data Lab results reviewed: Yes I reviewed the patient's lab results. Result diagrams: 07/01/22 19:53 07/01/22 19:53 Labs: Lab Results 07/01/22 07/01/22 07/01/22 Range/Units 19:53 19:53 19:53 WBC 4.1 L (4.8-10.8) X10*3/uL RBC 3.84 L (4.20-5.50) X10*6/uL Hgb 11.5 L (12.0-16.0) g/dl Hct 35.8 L (37.0-47.0) % MCV 93.2 (80.0-98.0) fL MCH 29.9 (27.0-33.0) pg MCHC 32.1 (31.0-35.0) g/dl RDW 13.2 (11.0-16.0) % Plt Count 129 L (160-400) X10*3/uL MPV 11.6 (9.4-12.3) fL Immature Gran % (Auto) 0.2 (0.0-0.4) % Neut % (Auto) 64.7 (45-73) % Lymph % (Auto) 26.0 (20-40) % [place] % (Auto) 6.1 (2-11) % Eos % (Auto) 2.5 (0-4) % Baso % (Auto) 0.5 (0-2) % Lymph # (Auto) 1.1 L (1.2-4.9) X10*3/uL [place] # (Auto) 0.3 (0.1-1.2) X10*3/uL Eos # (Auto) 0.1 (0.0-0.4) X10*3/uL Baso # (Auto) 0.0 (0.0-0.2) X10*3/uL Abs Immat Gran (auto) 0.01 (0.00-0.03) X10*3/uL Absolute Neuts (auto) 2.6 (2.0-8.3) x10*3/uL Absolute Nucleated RBC 0.000 (0.0-0.012) X10*3/uL Nucleated RBC % (auto) 0.0 (0.0-0.2) /100WBC Sodium 143 (135-145) mmol/L Potassium 4.5 (3.3-5.1) mmol/L Chloride 101 (96-108) mmol/L Carbon Dioxide 30 H (22-29) mmol/L Anion Gap 17 (12-20) BUN 17 H (9-16) mg/dL Creatinine 1.01 (0.5-1.4) mg/dL Estim Creat Clear Calc 48.2 Estimated GFR 53 Random Glucose 91 (60-115) mg/dL Calcium 10.1 (8.4-10.2) mg/dL Troponin I High Sens 6.9 (<3.5-17.0) ng/L Urine Color Urine Appearance Urine pH (5.0-9.0) Ur Specific [place] (1.005-1.025) Urine Protein (Neg-Trace) mg/dL Urine Glucose (UA) (Negative) mg/dL Urine Ketones (Negative) mg/dL Urine Blood (Negative) Urine Nitrite (Negative) Ur Leukocyte Esterase (Negative) 07/01/22 Range/Units 19:53 WBC (4.8-10.8) X10*3/uL RBC (4.20-5.50) X10*6/uL Hgb (12.0-16.0) g/dl Hct (37.0-47.0) % MCV (80.0-98.0) fL MCH (27.0-33.0) pg MCHC (31.0-35.0) g/dl RDW (11.0-16.0) % Plt Count (160-400) X10*3/uL MPV (9.4-12.3) fL Immature Gran % (Auto) (0.0-0.4) % Neut % (Auto) (45-73) % Lymph % (Auto) (20-40) % [place] % (Auto) (2-11) % Eos % (Auto) (0-4) % Baso % (Auto) (0-2) % Lymph # (Auto) (1.2-4.9) X10*3/uL [place] # (Auto) (0.1-1.2) X10*3/uL Eos # (Auto) (0.0-0.4) X10*3/uL Baso # (Auto) (0.0-0.2) X10*3/uL Abs Immat Gran (auto) (0.00-0.03) X10*3/uL Absolute Neuts (auto) (2.0-8.3) x10*3/uL Absolute Nucleated RBC (0.0-0.012) X10*3/uL Nucleated RBC % (auto) (0.0-0.2) /100WBC Sodium (135-145) mmol/L Potassium (3.3-5.1) mmol/L Chloride (96-108) mmol/L Carbon Dioxide (22-29) mmol/L Anion Gap (12-20) BUN (9-16) mg/dL Creatinine (0.5-1.4) mg/dL Estim Creat Clear Calc Estimated GFR Random Glucose (60-115) mg/dL Calcium (8.4-10.2) mg/dL Troponin I High Sens (<3.5-17.0) ng/L Urine Color Yellow Urine Appearance Clear Urine pH 6.5 (5.0-9.0) Ur Specific [place] <= 1.005 (1.005-1.025) Urine Protein Negative (Neg-Trace) mg/dL Urine Glucose (UA) Negative (Negative) mg/dL Urine Ketones Negative (Negative) mg/dL Urine Blood Negative (Negative) Urine Nitrite Negative (Negative) Ur Leukocyte Esterase Negative (Negative) Imaging Data Chest x-ray: Attestation: I personally reviewed and interpreted this imaging study as follows: Radiologist's impression: COMPARISON: 06/24/2022 TECHNIQUE: Frontal view of the chest was obtained. FINDINGS: Lungs are hyperexpanded. Cardiac silhouette is mildly enlarged. Calcific atherosclerosis is present in the thoracic aorta. No consolidation, pneumothorax, or pleural effusion. As the fissure. No acute osseous findings. Bones are osteopenic. Old healed right-sided rib fractures. XR/XR chest 1V IMPRESSION: 1.? No acute pulmonary findings. 2.? Borderline cardiomegaly. ? CT scan - head: Attestation: I personally reviewed and interpreted this imaging study as follows: Radiologist's impression: FINDINGS: No intracranial hemorrhage is identified. No significant mass effect or midline structure shift is seen. No abnormal extra-axial fluid collection is seen. The third and lateral ventricles are prominent out of proportion to sulci and cisterns and clinical correlation with normal pressure hydrocephalus should be considered. There is a large amount of periventricular white matter low density present consistent with microangiopathy however some about the frontal horns could also be related to transependymal flow of CSF. Visualized paranasal sinuses and mastoid air cells unremarkable. ? CT/CT head/brain wo IV con IMPRESSION: No acute intracranial pathology. ? Findings consistent with microangiopathy. ? Findings consistent with normal pressure hydrocephalus. ECG Data Attestation: I personally reviewed and interpreted this ECG as follows: Prior ECG tracings: available for review Interpretation: Ventricular rate 100 beats per minute, [place] 192, QRS 86, QT 358, QTC 461 normal sinus rhythm normal EKG no ST elevation or depression. 07/01/2022, time 18:58 Scores Heart Score History: -1- moderately suspicious ECG: -0- normal Age: -2- > or = 65 Risk factory: -1- 1 or 2 risk factors Troponin: -0- < or = normal limit Score: 4 Risk: 16.6% Discharge Plan Discharge Clinical Impression: Hydrocephalus, HTN (hypertension) Patient Disposition: Home, Self-Care Instructions: Chronic Hypertension (ED), Hydrocephalus (DC) Additional Instructions: You were evaluated for elevated blood pressure. Your CT scan of head indicates chronic findings of normal pressure hydrocephalus. Please take valsartan 160 mg daily rather than valsartan 40 mg twice a day. Take valsartan 160 mg daily. Please follow-up with primary care physician in the next 2 weeks. This medication change may take about a month for your blood pressures to normalize. Your primary care physician may decide to add additional blood pressure medications or change the dosage. It is very important that you follow-up with primary care physician in 2 weeks. Take your blood pressure in the morning, Thank you for choosing this emergency department for evaluation. Please follow-up with primary care physician as needed. Return to the emergency department for any new, concerning, or worsening symptoms. Prescriptions: New valsartan 160 mg tablet 160 mg PO DAILY Qty: 30 2RF No Action fluticasone propionate 50 mcg/actuation spray,suspension 1 spray intranasal BID 30 Days Qty: 16 3RF alprazolam 0.25 mg tablet 0.25 mg PO TID PRN (Reason: anxiety) 30 Days Qty: 90 1RF cholecalciferol (vitamin D3) 50 mcg (2,000 unit) tablet 50 mcg PO DAILY Qty: 90 0RF valsartan 40 mg tablet 40 mg PO BID Qty: 100 3RF Rx Instructions: Take an additional 40mg in the evening to equal 80mg if BP high. acetaminophen 325 mg Tablet 325 mg PO QID PRN (Reason: Pain) omeprazole 40 mg capsule,delayed release(DR/EC) 40 mg PO BID oseltamivir [Tamiflu] 75 mg capsule 75 mg PO DAILY Qty: 5 0RF ondansetron HCl 4 mg tablet 4 mg PO Q8H PRN (Reason: nausea and vomiting) 7 Days Qty: 21 0RF Referrals: Nick Gomez PA-C [Primary Care Provider] - 2 weeks (Elevated blood pressure) Interventions: ED Discharge Assessment Last Done: 07/01/22 22:32 Discharge Date/Time: 07/01/22 22:38
[2022-07-01 20:23] LABS: Platelet Count 129 X10*3/uL (160-400); White Blood Count 4.1 X10*3/uL (4.8-10.8)
[2022-07-01 20:24] LABS: MANUAL DIFF FLAG NO
[2022-07-01 20:31] LABS: Anion Gap 17 (12-20); Blood Urea Nitrogen 17 mg/dL (9-16); Calcium 10.1 mg/dL (8.4-10.2); Carbon Dioxide 30 mmol/L (22-29); Chloride 101 mmol/L (96-108); Creatinine Clr Calc Pharmacy 48.2; Estimated Glomerular Filt Rate 53; Glucose Random 91 mg/dL (60-115); Potassium 4.5 mmol/L (3.3-5.1); Sodium 143 mmol/L (135-145)
[2022-07-01 20:39] LABS: Troponin-I High Sensitivity 6.9 ng/L (<3.5-17.0)
[2022-07-01] MEDS: Valsartan 40 MG TABLET PO (22:19)
== END 2022-07-01 22:38 | disposition home or self-care (01) ==
PROVIDERS: Emergency Provider Emergency Medicine; PCP Physician Assistant
DX: G91.9 Hydrocephalus, unspecified (principal); R07.89 Other chest pain; I10 Essential (primary) hypertension; Z79.899 Other long term (current) drug therapy
CPT/HCPCS: 36415; 70450; 71045; 80048; 81003; 84484; 85025; 93005; 99284; 99285

== ENCOUNTER 2022-07-16 14:06 | Outpatient (REF) | payer MEDICARE, OTHER, SELFPAY ==
--- NOTE | ~2022-07-16 | XR_ITS ---
EXAMINATION: XR ABDOMEN COMPLETE CLINICAL INDICATION: Pain in the lower right cord COMPARISON: None TECHNIQUE: 2 views of the abdomen. FINDINGS: The bowel gas pattern is normal with no evidence of ileus or obstruction. No unusual soft tissue calcifications are noted. The bones are unremarkable. XR/XR abdomen 3V IMPRESSION: Unremarkable examination.
== END 2022-07-16 14:07 | disposition home or self-care (01) ==
LOC: HO.HMGCX 14:06
PROVIDERS: PCP Physician Assistant; Visit Provider Physician Assistant
DX: K57.92 Diverticulitis of intestine, part unspecified, without perforation or abscess without bleeding (principal)
CPT/HCPCS: 74021

== ENCOUNTER 2022-07-18 15:18 | Outpatient (REF) | payer MEDICARE, OTHER, SELFPAY ==
[2022-07-18 16:53] LABS: Vitamin D 25-OH Total 46.4 ng/mL (>30)
== END 2022-07-18 15:19 | disposition home or self-care (01) ==
LOC: HO.LAB 15:18
PROVIDERS: Visit Provider Nurse Practitioner Family
DX: R79.89 Other specified abnormal findings of blood chemistry (principal)
CPT/HCPCS: 36415; 82306

== ENCOUNTER 2022-07-24 09:34 | Emergency (ER) | payer MEDICARE, OTHER, SELFPAY ==
--- NOTE | ~2022-07-24 | CT_ITS ---
EXAMINATION: CT ABDOMEN AND PELVIS WITH CONTRAST CLINICAL INFORMATION: Gastrointestinal bleed. COMPARISON: None TECHNIQUE: Multidetector volumetric imaging was performed of the abdomen and pelvis following IV administration of 100 mL of Omnipaque 300 intravenous contrast. Sagittal and coronal reformatted images were obtained on the technologist's workstation. This CT examination was performed using dose optimization techniques as appropriate, variously including the following: *Automated exposure control *Adjustment of mA and/or kV according to patient size (this includes techniques or standardized protocols for targeted exams where dose is matched to indication/reason for exam; i.e. extremities or head) DLP: 1753 mGy-cm FINDINGS: LUNGS/PLEURA: The visualized lung bases are unremarkable. LIVER, GALLBLADDER, AND BILIARY TREE: Small low-attenuation foci without other significant abnormality. A benefits representative, noncalcified fluid attenuation cyst in the dome measures 1.3 cm (image 7, series 6). PANCREAS: Unremarkable. SPLEEN: Unremarkable. ADRENAL GLANDS: Unremarkable. KIDNEYS AND URETERS: Nonobstructing left intrarenal calculi. A benefits representative calculus in the lower pole measures 0.4 cm (image 64, series 19). No hydronephrosis. Tiny low-attenuation foci bilaterally. BLADDER: Unremarkable. GASTROINTESTINAL TRACT: The stomach, small bowel and small bowel unremarkable. No evidence for acute appendicitis. The colon shows mild mural thickening and diverticulosis in the sigmoid colon, most pronounced distally without surrounding abnormality. The rectum is unremarkable. LYMPH NODES: No lymphadenopathy. VASCULAR: Moderate to severe atherosclerosis most pronounced in the infrarenal segment measuring up to 3.3 cm in transverse dimension (image 31, series 6). PELVIC VISCERA: Unremarkable. MUSCULOSKELETAL: Generalized osteopenia. Mild multilevel degenerative changes most pronounced in the inferior thoracic spine without acute or suspicious abnormality. SOFT TISSUES: Unremarkable. CT/CT gi bleed abd pel wo/w IVcon IMPRESSION: 1. No definitive evidence for acute gastrointestinal hemorrhage. Persistent mild to moderate mural thickening and diverticulosis in the sigmoid colon without evidence for acute diverticulitis. 2. Small hepatic and renal cysts demonstrate benign features. Nonobstructing left intrarenal calculi. 3. Infrarenal abdominal aortic aneurysm measuring up to 3.3 cm. Recommended imaging follow-up frequency for an aneurysm of this size is every 3 years.
[2022-07-24 09:38] VITALS: BP 178/86; PULSE 106; O2SAT 98
[2022-07-24 09:39] VITALS: BP 150/76; PULSE 100; RESP 18; TEMP 36.6; O2SAT 97; BMI 30.3
--- NOTE | 2022-07-24 10:19 | ED_ITS ---
HPI - GI Bleed General Chief complaint: GI Bleed Stated complaint: ABD PAIN,RECTAL BLEEDING PER EMS Time Seen by Provider: 07/24/22 10:18 Source: patient and EMS Mode of arrival: EMS Limitations: no limitations History of Present Illness HPI Narrative: 81 yo female w/ history of normal pressure hydrocephalus, HTN, TIA, BPPV, vitamin B12 deficiency, IBS, aortic stenosis with murmur, GERD, diverticulitis?here with complaints of some abdominal discomfort described as lower abdominal pain with pressure in cramping since yesterday. Patient reports yesterday she had a very large formed bowel movement. She denies any straining during the bowel movement. Since then she has had loose stools. She nurse last night a small amount of blood in her stools. Today she had 1 large amount loose stool with blood just prior to arrival. + nausea and feeling lightheaded. No vomiting, urinary symptoms, fevers or chills. Patient denies any anticoagulation use or aspirin. Patient reports 3 years ago she had a colonoscopy by Dr. Escobar which he tells me was normal Related Data Home Medications Medication Instructions Recorded Confirmed acetaminophen 325 mg tablet 325 mg PO QID PRN Pain 06/21/21 07/19/22 omeprazole 40 mg capsule,delayed 40 mg PO BID 06/08/22 07/19/22 release Previous Rx's Medication Instructions Recorded fluticasone propionate 50 1 spray intranasal BID 30 days #16 11/08/21 mcg/actuation nasal grams spray,suspension alprazolam 0.25 mg tablet 0.25 mg PO TID PRN anxiety 30 days 04/11/22 #90 tabs cholecalciferol (vitamin D3) 50 50 mcg PO DAILY #90 tabs 04/13/22 mcg (2,000 unit) tablet ondansetron HCl 4 mg tablet 4 mg PO Q8H PRN nausea and 06/25/22 vomiting 7 days #21 tabs fluticasone propionate 50 1 spray intranasal BID #16 grams 07/09/22 mcg/actuation nasal spray,suspension (Flonase Allergy Relief) valsartan 80 mg tablet 80 mg PO BID #180 tabs 07/12/22 ciprofloxacin HCl 500 mg tablet 500 mg PO BID 4 days #8 tabs 07/16/22 prednisone 10 mg tablet 10 mg PO DAILY 5 days #5 tabs 07/16/22 promethazine 12.5 mg tablet 12.5 mg PO TID 4 days #12 tabs 07/16/22 Allergies Allergy/AdvReac Type Severity Reaction Status Date / Time Sulfa (Sulfonamide Allergy Intermediate RASH Verified 07/19/22 16:03 Antibiotics) amoxicillin [From AUGMENTIN] Allergy Unknown PER H&P Verified 07/19/22 16:03 clavulanic acid Allergy Unknown PER H&P Verified 07/19/22 16:03 [From AUGMENTIN] garlic [GARLIC] Allergy Unknown PER H&P Verified 07/19/22 16:03 metronidazole [From FLAGYL] Allergy Unknown OCULAR Verified 07/19/22 16:03 MIGRAINES penicillamine Allergy Unknown Unknown Verified 07/19/22 16:03 ciprofloxacin AdvReac Intermediate neuropathic Verified 07/19/22 16:09 pain lisinopril AdvReac Intermediate Cough Verified 07/19/22 16:03 nitrofurantoin AdvReac Mild GI side Verified 07/19/22 16:03 effects environmental Allergy Unknown Unknown Uncoded 07/19/22 15:57 flagyl Allergy Unknown Unknown Uncoded 07/19/22 15:57 From KEFLEX Allergy Unknown RASH Uncoded 07/19/22 15:57 Metoprolol Tartrate Allergy Unknown Unknown Uncoded 07/19/22 15:57 Sulfacet-R Allergy Unknown Unknown Uncoded 07/19/22 15:57 Review of Systems Review of Systems: Yes all other systems are reviewed and are negative Constitutional: Constitutional: Reports no additional constitutional complaints, Denies body ache(s), Denies chills, Denies fever(s), Denies headache(s) and Denies weakness Eyes: Eyes: Reports no additional eye complaints and Denies change in vision ENT: Reports system reviewed and no additional complaints, except as documented, Reports dizziness, Denies headache(s), Denies nasal congestion, Denies nasal discharge and Denies neck pain Cardiovascular: Cardiovascular: Reports no additional cardiovascular complaints, Denies chest pain, Denies leg edema and Denies dyspnea Respiratory: Respiratory: Reports no additional respiratory complaints, Denies cough and Denies dyspnea Gastrointestinal: Gastrointestinal: Reports no additional gastrointestinal complaints, Reports abdominal pain, Reports hematochezia, Denies diarrhea, Reports nausea and Denies vomiting Genitourinary: Genitourinary: Reports no additional female genitourinary complaints and Denies urinary incontinence Musculoskeletal: Musculoskeletal: Reports no additional musculoskeletal complaints, Denies back pain, Denies arthralgias, Denies joint swelling, Denies neck pain, Denies numbness and Denies tingling Integumentary/Breasts: Skin/Breast: Reports system reviewed and no additional complaints, except as docu and Denies rash Neurologic: Reports system reviewed and no additional complaints, except as documented, Denies Abnormal speech present, Reports dizziness, Denies headache(s), Denies numbness, Denies tingling and Denies weakness PMFSH Past Medical History Attestation statement: The following information was validated with the patient. Source: old records reviewed and nursing notes reviewed Medical History Anxiety Diverticulitis Heart murmur Irritable bowel Surgical History History of appendectomy History of tonsillectomy Family History Family History Father No problems noted. Mother No problems noted. Social History Social History Household Members: Children Housing: House Are you a primary spiritual care coordinator to a significant other at home: No Do you presently have visiting nurse or other home services: No Alcohol intake: never Patient Tobacco Use Status: Former Tobacco user e-Cigarette/Vaping Use: Never Used Second Hand Smoke Exposure: No Advance Directives: No Advance Directives Information Provided: No service: No Current occupational status: retired Cognitive needs: No Hearing needs: No Vision needs: Yes (glasses) Physical Exam Vital Signs: Vital Signs: Last Vital Signs Temp 96 F L 07/24/22 14:14 Pulse 99 07/24/22 14:14 Resp 14 07/24/22 14:14 BP 124/76 07/24/22 14:14 Pulse Ox 96 07/24/22 14:14 O2 Del Method 07/24/22 14:14 BMI result Body Mass Index 30.3 Const: General: cooperative, healthy appearing, comfortable and no acute d istress Orientation/consciousness: patient oriented x3 Limitations: no limitations HEENT: Head: Yes normal to inspection Ears: hearing grossly normal bilaterally General nose exam: Normal external nose present Face and sinu s: Yes normal facial exam Mouth: Normal oral and palatal mucosa present Throat: Yes posterior oropharynx normal Eyes: General: appearance normal, both eyes and all related structures Pupils: Equal, round and reactive pupils present Neck: Neck: Yes normal visual inspection Chest: Chest palpation & inspection: normal inspection of the chest Resp: Effort & Inspection: normal respiratory effort Auscultation: clear to auscultation bilaterally Cardio: Rate: regular rate Rhythm: regular rhythm Peripheral pulses: Peripheral pulses 2+ throughout GI: Other: +BRB per rectum Inspection: Yes normal to inspection Palpation (GI): Soft to palpation and nontender Auscultation: normal bowel sounds Back/Spine/Pelvis: Thoracic/Lumbar Spine: thoracic and lumbar spine normal to inspection Skin: General skin exam: no rashes or lesions noted Neuro: General: patient oriented x3, no focal motor deficits and normal sensation to monofilament Cranial nerves: Yes Equal, round and reactive pupils present Cognition (Neuro): normal cognition Speech: No Abnormal speech present Gait exam (Neuro): Normal gait present Motor exam (neuro): 5/5 motor strength present throughout Extrem: General: Yes normal to inspection, Yes no pedal edema and Yes no calf tenderness Course Course Course Narrative: 1500-No active GIB seen on CT scan. H/H actually better then before. On exam p atient has BRB per rectum. Patient had a small bowel movement here. Patient had loose stool that was brown with some red streaks in it. No large amount of blood in the toilet bowl. Abdomen is soft and nontender. Reviewed findings with the patient. It is possible that after her large bowel movement yesterday she has a small internal hemorrhoid. Patient has a GI that she can follow-up with. She should return for any worrisome signs or symptoms which were reviewed with the patient. Comfortable with plan for discharge Medications Administered Discontinued Medications Generic Name Dose Route Start Last Admin Trade Name Freq PRN Reason Stop Dose Admin Iohexol 85 ml 07/24/22 12:04 07/24/22 12:04 Iohexol 350 Mg/Ml 100 Ml Infus..Btl IV 07/24/22 12:05 85 ml ONCE ONE Administration Ondansetron HCl 4 mg 07/24/22 10:33 07/24/22 10:45 Ondansetron Hcl 4 Mg/2 Ml Vial IVPUSH 07/24/22 10:34 4 mg ONCE ONE Administration MDM - GI Bleed MDM Narrative Medical decision making narrative: This is an 81-year-old female with a history of diverticulitis who presents with 2 days of lower abdominal discomfort described as cramping and pressure now with some rectal bleeding. On exam abdomen is soft nontender. Hemodynamically patient is stable. Shows no history of AC therapy or aspirin use. On exam patient does have some bright red blood per rectum. She does report 1 large episode prior to arrival. Will check labs, send occult stool, UA, COVID screen, EKG and GI bleed study. Consider hemorrhoids, diverticular bleed, GI bleed Medical Records Attestation: I reviewed the patient's medical records. Lab Data Attestation: I reviewed the patient's lab results. Result diagrams: 07/24/22 11:05 07/24/22 11:05 Labs: Lab Results 07/24/22 07/24/22 07/24/22 Range/Units 10:56 10:56 11:04 WBC (4.8-10.8) X10*3/uL RBC (4.20-5.50) X10*6/uL Hgb (12.0-16.0) g/dl Hct (37.0-47.0) % MCV (80.0-98.0) fL MCH (27.0-33.0) pg MCHC (31.0-35.0) g/dl RDW (11.0-16.0) % Plt Count (160-400) X10*3/uL MPV (9.4-12.3) fL Immature Gran % (Auto) (0.0-0.4) % Neut % (Auto) (45-73) % Lymph % (Auto) (20-40) % [place] % (Auto) (2-11) % Eos % (Auto) (0-4) % Baso % (Auto) (0-2) % Lymph # (Auto) (1.2-4.9) X10*3/uL [place] # (Auto) (0.1-1.2) X10*3/uL Eos # (Auto) (0.0-0.4) X10*3/uL Baso # (Auto) (0.0-0.2) X10*3/uL Abs Immat Gran (auto) (0.00-0.03) X10*3/uL Absolute Neuts (auto) (2.0-8.3) x10*3/uL Absolute Nucleated RBC (0.0-0.012) X10*3/uL Nucleated RBC % (auto) (0.0-0.2) /100WBC PT (10.0-13.1) SEC INR (0.9-1.1) Sodium (135-145) mmol/L Potassium (3.3-5.1) mmol/L Chloride (96-108) mmol/L Carbon Dioxide (22-29) mmol/L Anion Gap (12-20) BUN (9-16) mg/dL Creatinine (0.5-1.4) mg/dL Estim Creat Clear Calc Estimated GFR Random Glucose (60-115) mg/dL Lactic Acid 0.7 (0.5-2.0) mmol/L Calcium (8.4-10.2) mg/dL Total Bilirubin (0.0-1.0) mg/dL Direct Bilirubin (0.0-0.5) mg/dL AST (5-31) U/L ALT (0-31) U/L Alkaline Phosphatase (39-117) U/L Total Protein (6.5-8.0) g/dL Albumin (3.5-5.0) g/dL Urine Color Urine Appearance Urine pH (5.0-9.0) Ur Specific [place] (1.005-1.025) Urine Protein (Neg-Trace) mg/dL Urine Glucose (UA) (Negative) mg/dL Urine Ketones (Negative) mg/dL Urine Blood (Negative) Urine Nitrite (Negative) Ur Leukocyte Esterase (Negative) Urine RBC (0-2) /HPF Urine WBC (0-5) /HPF Ur Squamous Epith Cells (0-2) /HPF Urine Bacteria (None Seen) Hyaline Casts (0-2) /LPF Stool Occult Blood POSITIVE (NEGATIVE) COVID-19 (MANDI) Negative (Negative) COVID-19 Clin Com See Note 07/24/22 07/24/22 07/24/22 Range/Units 11:05 11:05 11:05 WBC 5.0 (4.8-10.8) X10*3/uL RBC 4.00 L (4.20-5.50) X10*6/uL Hgb 12.0 (12.0-16.0) g/dl Hct 37.3 (37.0-47.0) % MCV 93.3 (80.0-98.0) fL MCH 30.0 (27.0-33.0) pg MCHC 32.2 (31.0-35.0) g/dl RDW 13.2 (11.0-16.0) % Plt Count 125 L (160-400) X10*3/uL MPV 11.7 (9.4-12.3) fL Immature Gran % (Auto) 0.2 (0.0-0.4) % Neut % (Auto) 79.1 H (45-73) % Lymph % (Auto) 13.1 L (20-40) % Lagrange % (Auto) 5.6 (2-11) % Eos % (Auto) 1.4 (0-4) % Baso % (Auto) 0.6 (0-2) % Lymph # (Auto) 0.7 L (1.2-4.9) X10*3/uL [place] # (Auto) 0.3 (0.1-1.2) X10*3/uL Eos # (Auto) 0.1 (0.0-0.4) X10*3/uL Baso # (Auto) 0.0 (0.0-0.2) X10*3/uL Abs Immat Gran (auto) 0.01 (0.00-0.03) X10*3/uL Absolute Neuts (auto) 4.0 (2.0-8.3) x10*3/uL Absolute Nucleated RBC 0.000 (0.0-0.012) X10*3/uL Nucleated RBC % (auto) 0.0 (0.0-0.2) /100WBC PT 11.8 (10.0-13.1) SEC INR 1.0 (0.9-1.1) Sodium 141 (135-145) mmol/L Potassium 4.6 (3.3-5.1) mmol/L Chloride 102 (96-108) mmol/L Carbon Dioxide 30 H (22-29) mmol/L Anion Gap 14 (12-20) BUN 15 (9-16) mg/dL Creatinine 0.85 (0.5-1.4) mg/dL Estim Creat Clear Calc 57.0 Estimated GFR > 60 Random Glucose 106 (60-115) mg/dL Lactic Acid (0.5-2.0) mmol/L Calcium 9.8 (8.4-10.2) mg/dL Total Bilirubin 0.6 (0.0-1.0) mg/dL Direct Bilirubin 0.2 (0.0-0.5) mg/dL AST 20 (5-31) U/L ALT 11 (0-31) U/L Alkaline Phosphatase 127 H (39-117) U/L Total Protein 7.8 (6.5-8.0) g/dL Albumin 4.6 (3.5-5.0) g/dL Urine Color Urine Appearance Urine pH (5.0-9.0) Ur Specific [place] (1.005-1.025) Urine Protein (Neg-Trace) mg/dL Urine Glucose (UA) (Negative) mg/dL Urine Ketones (Negative) mg/dL Urine Blood (Negative) Urine Nitrite (Negative) Ur Leukocyte Esterase (Negative) Urine RBC (0-2) /HPF Urine WBC (0-5) /HPF Ur Squamous Epith Cells (0-2) /HPF Urine Bacteria (None Seen) Hyaline Casts (0-2) /LPF Stool Occult Blood (NEGATIVE) COVID-19 (MANDI) (Negative) COVID-19 Clin Com 07/24/22 Range/Units 11:06 WBC (4.8-10.8) X10*3/uL RBC (4.20-5.50) X10*6/uL Hgb (12.0-16.0) g/dl Hct (37.0-47.0) % MCV (80.0-98.0) fL MCH (27.0-33.0) pg MCHC (31.0-35.0) g/dl RDW (11.0-16.0) % Plt Count (160-400) X10*3/uL MPV (9.4-12.3) fL Immature Gran % (Auto) (0.0-0.4) % Neut % (Auto) (45-73) % Lymph % (Auto) (20-40) % [place] % (Auto) (2-11) % Eos % (Auto) (0-4) % Baso % (Auto) (0-2) % Lymph # (Auto) (1.2-4.9) X10*3/uL [place] # (Auto) (0.1-1.2) X10*3/uL Eos # (Auto) (0.0-0.4) X10*3/uL Baso # (Auto) (0.0-0.2) X10*3/uL Abs Immat Gran (auto) (0.00-0.03) X10*3/uL Absolute Neuts (auto) (2.0-8.3) x10*3/uL Absolute Nucleated RBC (0.0-0.012) X10*3/uL Nucleated RBC % (auto) (0.0-0.2) /100WBC PT (10.0-13.1) SEC INR (0.9-1.1) Sodium (135-145) mmol/L Potassium (3.3-5.1) mmol/L Chloride (96-108) mmol/L Carbon Dioxide (22-29) mmol/L Anion Gap (12-20) BUN (9-16) mg/dL Creatinine (0.5-1.4) mg/dL Estim Creat Clear Calc Estimated GFR Random Glucose (60-115) mg/dL Lactic Acid (0.5-2.0) mmol/L Calcium (8.4-10.2) mg/dL Total Bilirubin (0.0-1.0) mg/dL Direct Bilirubin (0.0-0.5) mg/dL AST (5-31) U/L ALT (0-31) U/L Alkaline Phosphatase (39-117) U/L Total Protein (6.5-8.0) g/dL Albumin (3.5-5.0) g/dL Urine Color Yellow Urine Appearance Clear Urine pH 7.0 (5.0-9.0) Ur Specific [place] 1.010 (1.005-1.025) Urine Protein Negative (Neg-Trace) mg/dL Urine Glucose (UA) Negative (Negative) mg/dL Urine Ketones Negative (Negative) mg/dL Urine Blood Trace H (Negative) Urine Nitrite Negative (Negative) Ur Leukocyte Esterase Negative (Negative) Urine RBC 0-2 (0-2) /HPF Urine WBC 0-5 (0-5) /HPF Ur Squamous Epith Cells 0-2 (0-2) /HPF Urine Bacteria None Seen (None Seen) Hyaline Casts 0-2 (0-2) /LPF Stool Occult Blood (NEGATIVE) COVID-19 (MANDI) (Negative) COVID-19 Clin Com Imaging Data CT scan - abdomen: Attestation: I personally reviewed and interpreted this imaging study as follows: Radiologist's impression: FINDINGS: LUNGS/PLEURA: The visualized lung bases are unremarkable.? LIVER, GALLBLADDER, AND BILIARY TREE: Small low-attenuation foci without other significant abnormality. A sales representative groceries, noncalcified fluid attenuation cyst in the dome measures 1.3 cm (image 7, series 6). PANCREAS: Unremarkable.? SPLEEN: Unremarkable.? ADRENAL GLANDS: Unremarkable.? KIDNEYS AND URETERS: Nonobstructing left intrarenal calculi. A sales representative groceries calculus in the lower pole measures 0.4 cm (image 64, series 19). No hydronephrosis. Tiny low-attenuation foci bilaterally. BLADDER: Unremarkable.? GASTROINTESTINAL TRACT: The stomach, small bowel and small bowel unremarkable. No evidence for acute appendicitis. The colon shows mild mural thickening and diverticulosis in the sigmoid colon, most pronounced distally without surrounding abnormality. The rectum is unremarkable. LYMPH NODES: No lymphadenopathy. VASCULAR: Moderate to severe atherosclerosis most pronounced in the infrarenal segment measuring up to 3.3 cm in transverse dimension (image 31, series 6). PELVIC VISCERA: Unremarkable. MUSCULOSKELETAL: Generalized osteopenia. Mild multilevel degenerative changes most pronounced in the inferior thoracic spine without acute or suspicious abnormality. SOFT TISSUES: Unremarkable. CT/CT gi bleed abd pel wo/w IVcon IMPRESSION: 1. No definitive evidence for acute gastrointestinal hemorrhage. Persistent mild to moderate mural thickening and diverticulosis in the sigmoid colon without evidence for acute diverticulitis. 2. Small hepatic and renal cysts demonstrate benign features. Nonobstructing left intrarenal calculi. 3. Infrarenal abdominal aortic aneurysm measuring up to 3.3 cm. Recommended imaging follow-up frequency for an aneurysm of this size is every 3 years. ? Discharge Plan Discharge Clinical Impression: Rectal bleeding Patient Disposition: Home, Self-Care Instructions: Rectal Bleeding (ED) Additional Instructions: Your CT scan shows no acute signs of bleeding. Your blood counts look normal. Please call Dr. Escobar tomorrow to schedule an outpatient appointment is follow- up Take your dicyclomine for pain as needed Return for increasing pain, fever greater than 100.4, vomiting, increased bleeding Prescriptions: No Action fluticasone propionate 50 mcg/actuation spray,suspension 1 spray intranasal BID 30 Days Qty: 16 3RF alprazolam 0.25 mg tablet 0.25 mg PO TID PRN (Reason: anxiety) 30 Days Qty: 90 1RF cholecalciferol (vitamin D3) 50 mcg (2,000 unit) tablet 50 mcg PO DAILY Qty: 90 0RF valsartan 80 mg tablet 80 mg PO BID Qty: 180 2RF Rx Instructions: New Dose acetaminophen 325 mg Tablet 325 mg PO QID PRN (Reason: Pain) omeprazole 40 mg capsule,delayed release(DR/EC) 40 mg PO BID ondansetron HCl 4 mg tablet 4 mg PO Q8H PRN (Reason: nausea and vomiting) 7 Days Qty: 21 0RF Hold Instructions: Doctor's Order fluticasone propionate [Flonase Allergy Relief] 50 mcg/actuation spray,suspension 1 spray intranasal BID Qty: 16 0RF Rx Instructions: administer into each nostril promethazine 12.5 mg tablet 12.5 mg PO TID 4 Days Qty: 12 0RF ciprofloxacin HCl 500 mg tablet 500 mg PO BID 4 Days Qty: 8 0RF prednisone 10 mg tablet 10 mg PO DAILY 5 Days Qty: 5 0RF Referrals: Anatoliy Escobar [Physician] - 1 week Interventions: ED Discharge Assessment Last Done: 07/24/22 15:01
--- NOTE | 2022-07-24 10:34 | ECG_ITS ---
Test Reason : DIZZY Blood Pressure : / mmHG Vent. Rate : 091 BPM Atrial Rate : 091 BPM P-R Int : 218 ms QRS Dur : 092 ms QT Int : 370 ms P-R-T Axes : 036 -07 022 degrees QTc Int : 455 ms Sinus rhythm with 1st degree A-V block Abnormal ECG When compared with ECG of 01-JUL-2022 18:58, No significant changes seen Referred By: Ilsa Navarro Electronically Signed By:RADHA CAMARA MD
[2022-07-24] MEDS: ondansetron HCL 4 MG/2 ML VIAL IVPUSH (10:45)
[2022-07-24 11:11] LABS: MANUAL DIFF FLAG NO
[2022-07-24 11:14] LABS: OBS1 POSITIVE (NEGATIVE)
[2022-07-24 11:15] LABS: OBS Int Ctl Valid YES
[2022-07-24 11:15] LABS: Appearance Urine Clear; Color Urine Yellow; Glucose Urine UA Negative (Negative); Leukocyte Esterase Urine Negative (Negative); Nitrite Urine Negative (Negative); UMIC TRIGGER UACC YES; Urine Blood Trace (Negative); Urine Ketones Negative (Negative); Urine Protein Negative (Neg-Trace)
[2022-07-24 11:17] LABS: Bacteria Urine None Seen (None Seen); Hyaline Casts Urine 0-2 /LPF (0-2); RBC Urine 0-2 /HPF (0-2); Squamous Epithelial Cell Urine 0-2 /HPF (0-2); WBC Urine 0-5 /HPF (0-5)
[2022-07-24 11:19] LABS: Prothrombin Time 11.8 SEC (10.0-13.1)
[2022-07-24 11:22] LABS: Basophils Percent Auto 0.6 % (0-2); Eosinophils Absolute Auto 0.1 X10*3/uL (0.0-0.4); Eosinophils Percent Auto 1.4 % (0-4); Hematocrit 37.3 % (37.0-47.0); Imm Gran Abs Auto 0.01 X10*3/uL (0.00-0.03); Imm Gran Pct Auto 0.2 % (0.0-0.4); Lymphocytes Absolute Auto 0.7 X10*3/uL (1.2-4.9); Lymphocytes Percent Auto 13.1 % (20-40); Mean Corpuscular HGB Conc 32.2 g/dl (31.0-35.0); Mean Corpuscular Volume 93.3 fL (80.0-98.0); Mean Platelet Volume 11.7 fL (9.4-12.3); Monocytes Absolute Auto 0.3 X10*3/uL (0.1-1.2); Monocytes Percent Auto 5.6 % (2-11); Neutrophils Percent Auto 79.1 % (45-73); Platelet Count 125 X10*3/uL (160-400); Red Cell Distribution Width 13.2 % (11.0-16.0)
[2022-07-24 11:24] LABS: Lactic Acid 0.7 mmol/L (0.5-2.0)
[2022-07-24 11:24] LABS: COVID-19 Test Negative (Negative); IDNOW Serial# 55D5AD1C
[2022-07-24 11:29] LABS: Alanine Aminotransferase 11 U/L (0-31); Albumin Level 4.6 g/dL (3.5-5.0); Alkaline Phosphatase 127 U/L (39-117); Anion Gap 14 (12-20); Aspartate Amino Transferase 20 U/L (5-31); Bilirubin Direct 0.2 mg/dL (0.0-0.5); Bilirubin Total 0.6 mg/dL (0.0-1.0); Blood Urea Nitrogen 15 mg/dL (9-16); Calcium 9.8 mg/dL (8.4-10.2); Carbon Dioxide 30 mmol/L (22-29); Chloride 102 mmol/L (96-108); Estimated Glomerular Filt Rate > 60; Glucose Random 106 mg/dL (60-115); Potassium 4.6 mmol/L (3.3-5.1); Sodium 141 mmol/L (135-145); Total Protein 7.8 g/dL (6.5-8.0)
[2022-07-24 11:37] VITALS: BP 135/82; PULSE 91; RESP 14; TEMP 36.5; O2SAT 96
[2022-07-24] MEDS: iohexoL 350 MG/ML 100 ML INFUS..BTL 85 ML IV (12:04)
[2022-07-24 14:14] VITALS: BP 124/76; PULSE 99; RESP 14; TEMP 35.5; O2SAT 96
== END 2022-07-24 15:20 | disposition home or self-care (01) ==
PROVIDERS: Nurse Practitioner Family; Emergency Provider Emergency Medicine Emergency Medical Services
DX: K62.5 Hemorrhage of anus and rectum (principal); Z20.822 Contact with and (suspected) exposure to COVID-19; Z79.899 Other long term (current) drug therapy; Z87.891 Personal history of nicotine dependence
CPT/HCPCS: 36415; 74178; 80048; 80076; 81001; 82272; 83605; 85025; 85610; 87635; 93005; 96374; 99284; J2405; Q9967

== ENCOUNTER 2022-08-04 11:03 | Outpatient (REF) | payer MEDICARE, OTHER, SELFPAY ==
[2022-08-04 14:41] LABS: Vitamin D 25-OH Total 31.5 ng/mL (>30)
[2022-08-04 14:57] LABS: Folate 6.8 ng/mL (> or = 4.0); Vitamin B12 331 pg/mL (200-900)
== END 2022-08-04 11:04 | disposition home or self-care (01) ==
LOC: HO.10HDL 11:03
PROVIDERS: Visit Provider Physician Assistant
DX: E53.8 Deficiency of other specified B group vitamins (principal); R79.89 Other specified abnormal findings of blood chemistry
CPT/HCPCS: 36415; 82306; 82607; 82746

== ENCOUNTER 2022-08-11 07:01 | Outpatient (REF) | payer MEDICARE, OTHER, SELFPAY ==
--- NOTE | ~2022-08-11 | XR_ITS ---
EXAMINATION: XR AP KNEE STANDING, BILATERAL XR KNEE, BILATERAL CLINICAL INFORMATION: Bilateral knee pain. COMPARISON: None. TECHNIQUE: Bilateral AP knee standing 1 view. 2 views each knee. FINDINGS: Bilateral AP Knee Standing: There is reduction in medial compartment joint space both knees without visible acute fracture, dislocation or subluxation. No bony erosive changes seen. No soft tissue swelling. Right Knee: There is reduction the patellofemoral compartment joint space with minimal superior patellar spurring. No loose bodies, erosive changes or suprapatellar joint effusion. Left Knee: There is mild reduction in the medial compartment joint space left knee minimal superior patellar spurring. No abnormal joint effusion or loose bodies seen. 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
--- NOTE | ~2022-08-11 | XR_ITS ---
EXAMINATION: XR AP KNEE STANDING, BILATERAL XR KNEE, BILATERAL CLINICAL INFORMATION: Bilateral knee pain. COMPARISON: None. TECHNIQUE: Bilateral AP knee standing 1 view. 2 views each knee. FINDINGS: Bilateral AP Knee Standing: There is reduction in medial compartment joint space both knees without visible acute fracture, dislocation or subluxation. No bony erosive changes seen. No soft tissue swelling. Right Knee: There is reduction the patellofemoral compartment joint space with minimal superior patellar spurring. No loose bodies, erosive changes or suprapatellar joint effusion. Left Knee: There is mild reduction in the medial compartment joint space left knee minimal superior patellar spurring. No abnormal joint effusion or loose bodies seen. XR/XR knee standing BI IMPRESSION: Degenerative arthritic changes medial and patellofemoral compartment both knees.
--- NOTE | ~2022-08-11 | XR_ITS ---
EXAMINATION: XR AP KNEE STANDING, BILATERAL XR KNEE, BILATERAL CLINICAL INFORMATION: Bilateral knee pain. COMPARISON: None. TECHNIQUE: Bilateral AP knee standing 1 view. 2 views each knee. FINDINGS: Bilateral AP Knee Standing: There is reduction in medial compartment joint space both knees without visible acute fracture, dislocation or subluxation. No bony erosive changes seen. No soft tissue swelling. Right Knee: There is reduction the patellofemoral compartment joint space with minimal superior patellar spurring. No loose bodies, erosive changes or suprapatellar joint effusion. Left Knee: There is mild reduction in the medial compartment joint space left knee minimal superior patellar spurring. No abnormal joint effusion or loose bodies seen. 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
== END 2022-08-11 07:02 | disposition home or self-care (01) ==
LOC: HO.HOSX 07:01
PROVIDERS: Visit Provider Physician Assistant
DX: M17.0 Bilateral primary osteoarthritis of knee (principal)
CPT/HCPCS: 20610; 73560; 73565; 99212; J1040

== ENCOUNTER 2022-08-14 14:01 | Emergency (ER) | payer MEDICARE, OTHER, SELFPAY ==
--- NOTE | ~2022-08-14 | CT_ITS ---
EXAMINATION: CT HEAD WITHOUT CONTRAST CLINICAL INFORMATION: Perioral numbness and tingling fingers, rule out intracranial abnormality. COMPARISON: Head CT scan dated 06/23/2022 and 04/02/2022. TECHNIQUE: Contiguous axial imaging was performed from the skull base to vertex without intravenous administration of contrast. Coronal and sagittal reformatted images were obtained. This CT examination was performed using dose optimization techniques as appropriate, variously including the following: *Automated exposure control *Adjustment of mA and/or kV according to patient size (this includes techniques or standardized protocols for targeted exams where dose is matched to indication/reason for exam; i.e. extremities or head) *Use of iterative reconstruction technique DLP: 701 mGy-cm FINDINGS: There is mild widening of the cortical sulci. Lateral ventriculomegaly with prominence of the occipital horns is again seen without significant change. Mild to moderate periventricular microvascular changes are seen. The third and fourth ventricles are in their normal midline position. The basilar and prepontine cisterns are unremarkable. Right basal ganglia lacunar infarct without significant change. There is no acute intra or extracerebral abnormality. There is no mass effect or midline shift. Sections through the bony calvarium are unremarkable. The orbits are intact. The paranasal sinuses are clear. The mastoid air cells are clear. CT/CT head/brain wo IV con IMPRESSION: No acute intracranial pathology.
[2022-08-14 14:30] VITALS: BP 175/113; PULSE 102; RESP 18; TEMP 36.6; O2SAT 98; BMI 29.8
--- NOTE | 2022-08-14 14:35 | ED.GENADULT ---
HPI - General Adult General Chief complaint: General Medical <ROMAINE Leigh - Last Filed: 08/14/22 14:40> Stated complaint: sent by doctor, quest tia? <ROMAINE Leigh - Last Filed: 08/14/22 14:40> Time Seen by Provider: 08/14/22 14:53 <ROMAINE Leigh - Last Filed: 08/14/22 14:40> Source: patient <Lyla Goodson NP - Last Filed: 08/14/22 16:51> Mode of arrival: ambulatory <Lyla Goodson NP - Last Filed: 08/14/22 16:51> Limitations: no limitations <Lyla Goodson NP - Last Filed: 08/14/22 16:51> History of Present Illness HPI narrative: 81 year old female with a past medical history of IBS with constipation, GERD, hypertension stable on valsartan, known hydrocephalus, anemia, and neuropathy presents to the emergency department today at the recommendation of her physician whom she spoke to for a telehealth visit today regarding bilateral foot numbness since Monday and lip and nose numbness without swelling. She denies any difficulty swallowing, shortness of breath, chest pain. She denies any recent illness or known sick contacts. She denies starting any new medications, however she states she has increased dosage of her previous medications. Patient previously seen in the emergency department in March 2022 for similar complaints of numbness and tingling, was prescribed 100 mg gabapentin for treatment of neuropathy. Patient declined to start prescription based on side effects listed on prescription information paperwork. Patient states she has been having increased anxiety related to the passing of her of 50+ years, roughly 1 year ago, having to care for her adult child, and the present holiday season. She states she treat her anxiety with buspirone and PRN alprazolam with good effect. She states she is lonely with plans to begin different activities at her local senior center. <Lyla Goodson NP - Last Filed: 08/14/22 16:51> Onset (ago): day(s) <Lyla Goodson NP - Last Filed: 08/14/22 16:51> Relieving factors: none <Lyla Goodson NP - Last Filed: 08/14/22 16:51> Exacerbating factors: none <Lyla Goodson NP - Last Filed: 08/14/22 16:51> Associated symptoms: denies other symptoms <Lyla Goodson NP - Last Filed: 08/14/22 16:51> Treatments prior to arrival: none <Lyla Goodson NP - Last Filed: 08/14/22 16:51> Related Data Home medications: Home Medications Medication Instructions Recorded Confirmed acetaminophen 325 mg tablet 325 mg PO QID PRN Pain 06/21/21 07/19/22 omeprazole 40 mg capsule,delayed 40 mg PO BID 06/08/22 07/19/22 release dicyclomine 10 mg capsule 10 - 20 mg PO Q6H PRN cramps 07/30/22 Previous Rx's Medication Instructions Recorded fluticasone propionate 50 1 spray intranasal BID 30 days #16 11/08/21 mcg/actuation nasal grams spray,suspension alprazolam 0.25 mg tablet 0.25 mg PO TID PRN anxiety 30 days 04/11/22 #90 tabs cholecalciferol (vitamin D3) 50 50 mcg PO DAILY #90 tabs 04/13/22 mcg (2,000 unit) tablet ondansetron HCl 4 mg tablet 4 mg PO Q8H PRN nausea and 06/25/22 vomiting 7 days #21 tabs fluticasone propionate 50 1 spray intranasal BID #16 grams 07/09/22 mcg/actuation nasal spray,suspension (Flonase Allergy Relief) valsartan 80 mg tablet 80 mg PO BID #180 tabs 07/12/22 tizanidine 2 mg capsule 2 mg PO TID PRN muscle spasticity 07/30/22 #30 caps <ROMAINE Leigh - Last Filed: 08/14/22 14:40> Allergies/adverse reactions: Allergies Allergy/AdvReac Type Severity Reaction Status Date / Time Sulfa (Sulfonamide Allergy Intermediate RASH Verified 08/11/22 15:21 Antibiotics) amoxicillin [From AUGMENTIN] Allergy Unknown PER H&P Verified 08/11/22 15:21 clavulanic acid Allergy Unknown PER H&P Verified 08/11/22 15:21 [From AUGMENTIN] garlic [GARLIC] Allergy Unknown PER H&P Verified 08/11/22 15:21 metronidazole [From FLAGYL] Allergy Unknown OCULAR Verified 08/11/22 15:21 MIGRAINES penicillamine Allergy Unknown Unknown Verified 08/11/22 15:21 ciprofloxacin AdvReac Intermediate neuropathic Verified 08/11/22 15:21 pain lisinopril AdvReac Intermediate Cough Verified 08/11/22 15:21 nitrofurantoin AdvReac Mild GI side Verified 08/11/22 15:21 effects environmental Allergy Unknown Unknown Uncoded 07/30/22 14:40 flagyl Allergy Unknown Unknown Uncoded 07/30/22 14:40 From KEFLEX Allergy Unknown RASH Uncoded 07/30/22 14:40 Metoprolol Tartrate Allergy Unknown Unknown Uncoded 07/30/22 14:40 Sulfacet-R Allergy Unknown Unknown Uncoded 07/30/22 14:40 <ROMAINE Leigh - Last Filed: 08/14/22 14:40> Review of Systems Review of Systems: In addition to documented HPI above, the additional ROS was obtained: CONSTITUTIONAL: Denies fever, chills, weakness, fatigue, headache, night sweats, or weight loss EYES: Denies vision changes, eye pain, swelling, redness, discharge ENT: Hearing normal. Denies sore throat, swallowing difficulty, congestion, ear pain, no hoarseness CV: Denies chest pain or epigastric pain. No edema, palpitations, or dyspnea on exertion RESP: Denies shortness of breath. Denies cough, wheezing, dyspnea. GI: Denies abdominal pain. Denies nausea, vomiting, or diarrhea. No melena or hematochezia. : Denies irregular bleeding, and dysuria, urinary frequency, urinary incontinence/retention, urgency. Denies flank pain, hematuria MSK: Denies recent trauma, change in gait, myalgias, joint swelling or pain SKIN: Denies no lesions, rashes, or sores NEURO: Denies new dizziness, paresthesias or weakness. No loss of consciousness. Denies headache ENDOCRINE: Denies unexpected weight loss. Denies polyuria, polydipsia. No temperature intolerance HEME/ONC: Denies bleeding disorders, easy bruising, or lymphadenopathy PSYCH: Denies anxiety/panic, depression, SI/HI, or social issues. <Lyla Goodson NP - Last Filed: 08/14/22 16:51> Yes all other systems are reviewed and are negative <Lyla Goodson NP - Last Filed: 08/14/22 16:51> [facility] Past Medical History Attestation statement: The following information was validated with the patient. <Lyla Goodson NP - Last Filed: 08/14/22 16:51> Source: old records reviewed and obtained from family <Lyla Goodson NP - Last Filed: 08/14/22 16:51> Medical History: Medical History Anxiety Diverticulitis Heart murmur Irritable bowel <ROMAINE Leigh - Last Filed: 08/14/22 14:40> Surgical History: Surgical History History of appendectomy History of tonsillectomy <ROMAINE Leigh - Last Filed: 08/14/22 14:40> Family History Family History: Family History Father No problems noted. Mother No problems noted. <ROMAINE Leigh - Last Filed: 08/14/22 14:40> Social History Social History: Social History Household Members: Children Housing: House Are you a primary dog daycare provider to a significant other at home: No Do you presently have visiting nurse or other home services: No Alcohol intake: never Patient Tobacco Use Status: Former Tobacco user e-Cigarette/Vaping Use: Never Used Second Hand Smoke Exposure: No Advance Directives: Yes Advance Directives Information Provided: No Advance Directives on File: No service: No Current occupational status: retired Cognitive needs: No Hearing needs: No Vision needs: Yes (glasses) <ROMAINE Leigh - Last Filed: 08/14/22 14:40> Physical Exam ED Vital Signs: Vital Signs - 24 hr 08/14/22 14:30 Temperature 97.9 F Pulse Rate 102 H Respiratory Rate 18 Blood Pressure 175/113 H Pulse Oximetry 98 Oxygen Delivery Method Room Air BMI result Body Mass Index 29.8 <Mikaela Orozco PA - Last Filed: 08/14/22 14:40> Vital Signs - 24 hr 08/14/22 14:30 Temperature 97.9 F Pulse Rate 102 H Respiratory Rate 18 Blood Pressure 175/113 H Pulse Oximetry 98 Oxygen Delivery Method Room Air BMI result Body Mass Index 29.8 <Lyla Goodson NP - Last Filed: 08/14/22 16:51> Const General: cooperative, alert, awake and anxious <Lyla Goodson [employer]PER[employer] - Last Filed: 08/14/22 16:51> Nutritional Appearance: well nourished <Lyla Goodson NP - Last Filed: 08/14/22 16:51> Orientation/consciousness: patient oriented x3 <Lyla Goodson NP - Last Filed: 08/14/22 16:51> Limitations: no limitations <Lyla Goodson NP - Last Filed: 08/14/22 16:51> [facility] Head: Yes normal to inspection and Yes atraumatic <Lyla Goodson [employer]PER[employer]OR - Last Filed: 08/14/22 16:51> Ears: hearing grossly normal bilaterally and external ears normal <Lyla Goodson NP - Last Filed: 08/14/22 16:51> General nose exam: Normal external nose present and Normal nares present <Lyla Goodson NP - Last Filed: 08/14/22 16:51> Face and sinus: Yes normal facial exam and Yes face symmetric <Lyla Goodson NP - Last Filed: 08/14/22 16:51> Mouth: Normal oral and palatal mucosa present <Lyla Goodson [employer] SUPER[employer]OR - Last Filed: 08/14/22 16:51> Teeth and gingiva: dentures <Lyla Goodson NP - Last Filed: 08/14/22 16:51> Throat: Yes posterior oropharynx normal <Lyla Goodson NP - Last Filed: 08/14/22 16:51> Eyes General: appearance normal, both eyes and all related structures <Lyla Goodson NP - Last Filed: 08/14/22 16:51> Visual Duke: normal visual duke by confrontation <Lyla Goodson, [employer] SUPERVISOR - Last Filed: 08/14/22 16:51> Alignment and Position: alignment normal <Lyla Goodson, [employer] SUPERVISOR - Last Filed: 08/14/22 16:51> Periorbital: periorbital findings normal <Lyla Goodson, [employer] SUPERVISOR - Last Filed: 08/14/22 16:51> Eyelids: Yes eyelids normal <Lyla Goodson, [employer] SUPERVISOR - Last Filed: 08/14/22 16:51> Conjunctivae: conjunctivae normal <Lyla Goodson, [employer] SUPERVISOR - Last Filed: 08/14/22 16:51> Sclerae: sclerae normal <Lyla Goodson, [employer] SUPERVISOR - Last Filed: 08/14/22 16:51> Corneas: corneas normal <Lyla Goodson, [employer] SUPERVISOR - Last Filed: 08/14/22 16:51> Pupils: Equal, round and reactive pupils present <Lyla Goodson, [employer] SUPERVISOR - Last Filed: 08/14/22 16:51> EOM: EOMs intact bilaterally <Lyla Goodson, [employer] SUPERVISOR - Last Filed: 08/14/22 16:51> Neck Neck: Yes normal visual inspection and Yes full ROM <Lyla Goodson, [employer] SUPERVISOR - Last Filed: 08/14/22 16:51> Chest Chest palpation & inspection: normal inspection of the chest <Lyla Goodson, [employer] SUPERVISOR - Last Filed: 08/14/22 16:51> Resp Effort & Inspection: normal respiratory effort, no cough and not labored <Lyla Goodson, [employer] SUPERVISOR - Last Filed: 08/14/22 16:51> Auscultation: clear to auscultation bilaterally, no crackles, no rhonchi and no wheezes <Lyla Goodson, [employer] SUPERVISOR - Last Filed: 08/14/22 16:51> Cardio Rate: regular rate <Lyla Goodson, [employer] SUPERVISOR - Last Filed: 08/14/22 16:51> Rhythm: regular rhythm <Lyla Goodson, [employer] SUPERVISOR - Last Filed: 08/14/22 16:51> GI Inspection: Yes normal to inspection <Lyla Pluciennik, [employer] SUPERVISOR - Last Filed: 08/14/22 16:51> Palpation (GI): Soft to palpation and nontender <Lyla Goodson, [employer] SUPERVISOR - Last Filed: 08/14/22 16:51> Auscultation: normal bowel sounds <Lyla Goodson, [employer] SUPERVISOR - Last Filed: 08/14/22 16:51> Back/Spine/Pelvis Cervical Spine: cervical ROM normal <Lyla Goodson, [employer] SUPERVISOR - Last Filed: 08/14/22 16:51> Thoracic/Lumbar Spine: thoraco-lumbar ROM normal <Lyla Goodson, [employer] SUPERVISOR - Last Filed: 08/14/22 16:51> Skin General skin exam: no rashes or lesions noted <Lyla Goodson, [employer] SUPERVISOR - Last Filed: 08/14/22 16:51> Neuro General: patient oriented x3, gait normal, tone normal and moves all extremities <Lyla Goodson, [employer] SUPERVISOR - Last Filed: 08/14/22 16:51> Cranial nerves: Yes Equal, round and reactive pupils present <Lyla Goodson, [employer] SUPERVISOR - Last Filed: 08/14/22 16:51> Cognition (Neuro): normal cognition <Lyla Goodson, [employer] SUPERVISOR - Last Filed: 08/14/22 16:51> Motor exam (neuro): 5/5 motor strength present throughout <Lyla Goodson, [employer] SUPERVISOR - Last Filed: 08/14/22 16:51> Extrem General: Yes normal to inspection, Yes full ROM and Yes capillary refill normal <Lyla Goodson, [employer] SUPERVISOR - Last Filed: 08/14/22 16:51> Psych Appearance: grossly normal <Lyla Goodson, [employer] SUPERVISOR - Last Filed: 08/14/22 16:51> Mental Status: mental status grossly normal <Lyla Hamzah, [employer] SUPERVISOR - Last Filed: 08/14/22 16:51> Speech and movement: Normal speech and movement present <Lyla Wianicole, [employer] SUPERVISOR - Last Filed: 08/14/22 16:51> Affect: normal affect <Lyla Wainicole, [employer] SUPERVISOR - Last Filed: 08/14/22 16:51> Attitude: cooperative <Lyla Goodson NP - Last Filed: 08/14/22 16:51> Thought process: Normal thought process present <Lyla Goodson NP - Last Filed: 08/14/22 16:51> Thought content: Normal thought content present <Lyla Goodson NP - Last Filed: 08/14/22 16:51> Insight: Good insight present (Psych) <Lyla Goodson NP - Last Filed: 08/14/22 16:51> Judgement: Good judgement present (Psych) <Lyla Goodson NP - Last Filed: 08/14/22 16:51> Course Course Course Narrative: RME - 81 y/o female with history of HTN, GERD, ideopathic neuropathy, history of TIA in November, aortic stenosis, BPPV, among other comorbidities who presents to the ER with perioral numbness that started this morning, unknown what time. She also reports she has bilateral feet numbness since 08/12 and numbness in her fingers as well. No numbness on the face otherwise. No speech difficulty but states when she swallows it feels different. The numbness today started today and involves both lips, tongue and tip of her nose. Cranial nerves intact on brief exam, nonfocal. no oral or facial swelling. History and exam and not consistent with classic stroke, symptoms are bilateral. Only ate toast today, less likely allergic reaction. Will check basic labs and CT scan. <ROMAINE Leigh - Last Filed: 08/14/22 14:40> Medical Decision Making Medical Decision Making MDM Narrative: 81 year old female with a past medical history of IBS with constipation, GERD, hypertension stable on valsartan, known hydrocephalus, anemia, and neuropathy presents to the emergency department today at the recommendation of her physician whom she spoke to for a telehealth visit today regarding bilateral foot numbness since Monday and lip and nose numbness. CT head completed with no acute intracranial pathology or changes from last CT scan. Blood work unremarkable. On reassessment, pt denies feeling on numbness in lips or nose. Recommended to continue medications as prescribed with no changes. Recommended to begin previously prescribed gabapentin, as she still has a prescription at her home, for treatment of neuropathy. Educated to return to the emergency room with changes in mental status, severe headache, changes in vision, fever, chills, nausea, vomiting, or any other emergent symptoms that are concerning to her. Recommended follow-up with her primary care provider for further evaluation and treatment as needed. <Lyla Goodson NP - Last Filed: 08/14/22 16:51> Discharge Plan Discharge Clinical Impression: Anxiety and depression <ROMAINE Leigh - Last Filed: 08/14/22 14:40> Patient Disposition: Home, Self-Care <ROMAINE Leigh - Last Filed: 08/14/22 14:40> Additional Instructions: Your head CT head shows no evidence of acute intracranial pathology or changes from last CT scan. Your blood work is within normal limits. Please continue your medications as prescribed with no changes. It is recommended that you begin previously prescribed Gabapentin for treatment of neuropathy. Please return to the emergency room with changes in your mental status, severe headache, changes in vision, fever, chills, nausea, vomiting, or any other emergent symptoms that are concerning to her. Please follow-up with your primary care provider and mental health provider for further evaluation and treatment as needed. You are challenged to do one thing for you everyday. Go out an live life! <ROMAINE Leigh - Last Filed: 08/14/22 14:40> Prescriptions: No Action fluticasone propionate 50 mcg/actuation spray,suspension 1 spray intranasal BID 30 Days Qty: 16 3RF alprazolam 0.25 mg tablet 0.25 mg PO TID PRN (Reason: anxiety) 30 Days Qty: 90 1RF cholecalciferol (vitamin D3) 50 mcg (2,000 unit) tablet 50 mcg PO DAILY Qty: 90 0RF valsartan 80 mg tablet 80 mg PO BID Qty: 180 2RF Rx Instructions: New Dose acetaminophen 325 mg Tablet 325 mg PO QID PRN (Reason: Pain) omeprazole 40 mg capsule,delayed release(DR/EC) 40 mg PO BID dicyclomine 10 mg capsule 10 - 20 mg PO Q6H PRN (Reason: cramps) tizanidine 2 mg capsule 2 mg PO TID PRN (Reason: muscle spasticity) Qty: 30 0RF ondansetron HCl 4 mg tablet 4 mg PO Q8H PRN (Reason: nausea and vomiting) 7 Days Qty: 21 0RF Hold Instructions: Doctor's Order fluticasone propionate [Flonase Allergy Relief] 50 mcg/actuation spray,suspension 1 spray intranasal BID Qty: 16 0RF Rx Instructions: administer into each nostril <ROMAINE Leigh - Last Filed: 08/14/22 14:40> Referrals: Nick Gomez PA-C [Primary Care Provider] - <ROMAINE Leigh - Last Filed: 08/14/22 14:40> Print Language: Citizen Of [place] <ROMAINE Leigh - Last Filed: 08/14/22 14:40>
[2022-08-14 15:45] LABS: MANUAL DIFF FLAG NO
[2022-08-14 15:51] LABS: Basophils Percent Auto 0.4 % (0-2); Eosinophils Absolute Auto 0.1 X10*3/uL (0.0-0.4); Eosinophils Percent Auto 1.1 % (0-4); Hemoglobin 11.6 g/dl (12.0-16.0); Imm Gran Abs Auto 0.02 X10*3/uL (0.00-0.03); Imm Gran Pct Auto 0.4 % (0.0-0.4); Lymphocytes Percent Auto 18.8 % (20-40); Mean Corpuscular HGB Conc 32.2 g/dl (31.0-35.0); Mean Corpuscular Hemoglobin 29.2 pg (27.0-33.0); Mean Corpuscular Volume 90.7 fL (80.0-98.0); Mean Platelet Volume 11.4 fL (9.4-12.3); Monocytes Absolute Auto 0.3 X10*3/uL (0.1-1.2); Monocytes Percent Auto 5.9 % (2-11); Neutrophils Absolute Auto 3.9 x10*3/uL (2.0-8.3); Neutrophils Percent Auto 73.4 % (45-73); Platelet Count 120 X10*3/uL (160-400); Red Blood Count 3.97 X10*6/uL (4.20-5.50); Red Cell Distribution Width 13.2 % (11.0-16.0); White Blood Count 5.3 X10*3/uL (4.8-10.8)
[2022-08-14 15:53] LABS: Prothrombin Time 11.3 SEC (10.0-13.1)
[2022-08-14 15:55] LABS: Partial Thromboplastin Time 36.3 SEC (26.0-36.4)
[2022-08-14 16:02] LABS: Alanine Aminotransferase 12 U/L (0-31); Albumin Level 4.5 g/dL (3.5-5.0); Alkaline Phosphatase 103 U/L (39-117); Anion Gap 14 (12-20); Aspartate Amino Transferase 16 U/L (5-31); Bilirubin Direct 0.2 mg/dL (0.0-0.5); Bilirubin Total 0.5 mg/dL (0.0-1.0); Blood Urea Nitrogen 18 mg/dL (9-16); Calcium 9.7 mg/dL (8.4-10.2); Carbon Dioxide 29 mmol/L (22-29); Chloride 102 mmol/L (96-108); Creatinine Clr Calc Pharmacy 54.7; Estimated Glomerular Filt Rate > 60; Glucose Random 96 mg/dL (60-115); Potassium 4.8 mmol/L (3.3-5.1); Sodium 140 mmol/L (135-145); Total Protein 7.3 g/dL (6.5-8.0)
[2022-08-14] MEDS: Magnesium Hydrox/Alum Hydrox 30 ML ORAL.SUSP PO (17:40)
== END 2022-08-14 18:02 | disposition home or self-care (01) ==
PROVIDERS: Physician Assistant; Emergency Provider Emergency Medicine Emergency Medical Services; PCP Physician Assistant
DX: F33.1 Major depressive disorder, recurrent, moderate (principal); F41.1 Generalized anxiety disorder; F43.0 Acute stress reaction; R51.9 Headache, unspecified; Z87.891 Personal history of nicotine dependence; Z79.899 Other long term (current) drug therapy
CPT/HCPCS: 36415; 70450; 80048; 80076; 83735; 85025; 85610; 85730; 99282; 99284

== ENCOUNTER → 2022-08-15 10:15 | Outpatient (REF) | payer MEDICARE, OTHER, SELFPAY ==
--- NOTE | 2022-08-15 10:21 | CA_ITS ---
Transthoracic Echocardiogram Amended Patient (Last, First, Middle): Bella Henley G Gender: Female Date of : 1940 Age: 81 Procedure Date: 08/15/2022 Procedure Type: Transthoracic Echocardiogram Location: OP Height: 167.64 cm Weight: 83.92 kg BSA: 1.93 m2 Heart Rate: bpm BP: 124 / 60 mmHg Residential Subcontractor: Referring MD: Tre Duffy MD Symptoms: I35.0 - Nonrheumatic aortic (valve) stenosis Study Quality: Fair ECG Rhythm: Sinus Conclusions: - The left ventricular systolic function is normal. The visually estimated ejection fraction is between 65-70%. - There is moderate aortic valve stenosis. Findings Left Ventricle Normal left ventricular cavity size. There is moderately increased left ventricular wall thickness. The left ventricular systolic function is normal. The visually estimated ejection fraction is between 65-70%. There is no evidence of regional wall motion abnormalities. Evidence suggests grade I (mild) diastolic dysfunction. Slight gradient across the LVOT but no evidence of obstruction. Right Ventricle Normal right ventricular cavity size and systolic function. Atria Both atria are normal in size. Aortic Valve There is severe calcification of the aortic valve. There is moderate aortic valve stenosis. The peak aortic gradient is 61 mmHg.The mean gradient is 38 mmHg. The aortic valve area is 1.31 cm2. There is trace (trivial) aortic valve regurgitation. Dimensionless index 0.38. Mitral Valve There is moderate posterior mitral annular calcification. There is trace mitral valve regurgitation. There is no mitral valve stenosis. Pulmonic Valve The pulmonic valve is likely normal. Tricuspid Valve Normal tricuspid valve structure. There is mild tricuspid valve regurgitation. Great Vessels There is mild dilatation of the ascending aorta measuring 4.00 cm. Venous The inferior vena cava is normal in size and collapses greater than 50% with inspiration. Pericardium/Pleural There is no evidence of pericardial effusion. Prior Study Comparison Changes noted compared to prior study dated: 02/07/2022. Progression of aortic valve stenosis. Measurements 2D Linear Measurements IVSd: 1.25 0.6-0.9/0.6-1.0 cm LVIDd: 2.80 3.9-5.3/4.2-5.9 cm LVIDd Index: 1.45 2.4-3.2/2.2-3.1 cm/m2 LVIDs: 1.94 2.0-3.6 cm LVPWd: 1.28 0.7-1.1 cm Ao Root: 3.80 2.1-3.5 cm LA Diam: 2.20 2.7-3.8/3.0-4.0 cm LAIDs Index: 1.14 1.5-2.3 cm/m2 LV Mass: 134.65 67-162/88-224 g LV Mass Index: 69.76 43-95/49-115 g/m2 LVOT Diam: 2.00 3.0+(-)1.3 cm 2D Volumes LA Vol: 24.90 2D Systolic Function EF 4C: 57.30 >55% EF 2C: 64.50 >55% EF BiP: 58.50 >55% Mitral Valve MV Pk E: 0.54 MV PK A: 1.43 MV Decel Time: 172.00 E/A: 0.40 E'Lateral: 5.98 E'Medial: 3.37 E/E' Med: 16.00 E/E' Lat: 9.00 PHT: 50.00 MVA PHT: 4.40 Decel Berrien: 3.15 Aortic Valve AoV Pk Anthony: 3.91 AoV Mn Anthony: 2.95 AoV VTI: 0.76 AoV Pk Grad: 61.00 Aov Mn Grad: 38.00 LULA Cont.VTI: 1.31 LVOT LVOT Pk Anthony: 1.49 LVOT Mn Anthony: 1.14 LVOT VTI: 0.32 LVOT Pk Grad: 9.00 LVOT Mn Grad: 6.00 LVOT Diam: 2.00 LVOT Area: 3.14 Diastolic Function MV Pk E: 0.54 MV Pk A: 1.43 E/A: 0.40 E'Medial: 3.37 E/E' Med: 16.00 E' Laterial: 5.98 E/E' Lat: 9.00 Right Ventricle TAPSE (mm): 18.00 Tricuspid Valve TR Pk Anthony: 2.50 TR Pk Grad: 25.00 Great Vessels Aorta Ao Root-2D: 3.80 2.0-3.7 cm Ao Asc: 4.00 2.1-3.4 cm Pulmonary Valve PV Pk Anthony: 1.53 Peak PV Grad: 9.00 Updated in Other Vendor System with Status of Final Tre Duffy MD electronically signed on 08/15/2022 4:20:39 PM with status of Final
== END ==
LOC: HO.CARD 10:15
PROVIDERS: Visit Provider Internal Medicine
DX: I35.0 Nonrheumatic aortic (valve) stenosis (principal)
CPT/HCPCS: 93306

== ENCOUNTER → 2022-08-22 11:10 | Outpatient (BNVA) | payer MEDICARE, OTHER, SELFPAY | PROVIDERS: PCP Physician Assistant; Referring Provider Physician Assistant; Visit Provider Internal Medicine | DX: I35.0 Nonrheumatic aortic (valve) stenosis (principal); I10 Essential (primary) hypertension; F41.9 Anxiety disorder, unspecified | CPT/HCPCS: 99212 ==

== ENCOUNTER 2022-09-03 08:23 | Emergency (ER) | payer MEDICARE, OTHER, SELFPAY ==
[2022-09-03 08:27] VITALS: BP 171/104; PULSE 84; RESP 16; TEMP 36.7; O2SAT 98; BMI 29.9
--- NOTE | 2022-09-03 08:53 | ED.GENADULT ---
HPI - General Adult General Chief complaint: Animal Bite Stated complaint: cat bite on arm Time Seen by Provider: 09/03/22 08:36 Source: patient Limitations: no limitations History of Present Illness HPI narrative: This is an 81-year-old female with a history of anxiety, who is a frequent visitor to this emergency department, who states she was bitten by her cat on her right forearm few hours ago. Patient has a few puncture wounds. She is unsure when last tetanus immunization was, thinks it was many years. She notes she has many allergies to antibiotics. She denies any other acute complaints Related Data Home Medications Medication Instructions Recorded Confirmed acetaminophen 325 mg tablet 325 mg PO QID PRN Pain 06/21/21 08/22/22 omeprazole 40 mg capsule,delayed 40 mg PO BID 06/08/22 08/22/22 release dicyclomine 10 mg capsule 10 - 20 mg PO Q6H PRN cramps 07/30/22 08/22/22 Previous Rx's Medication Instructions Recorded fluticasone propionate 50 1 spray intranasal BID 30 days #16 11/08/21 mcg/actuation nasal grams spray,suspension alprazolam 0.25 mg tablet 0.25 mg PO TID PRN anxiety 30 days 04/11/22 #90 tabs cholecalciferol (vitamin D3) 50 50 mcg PO DAILY #90 tabs 04/13/22 mcg (2,000 unit) tablet ondansetron HCl 4 mg tablet 4 mg PO Q8H PRN nausea and 06/25/22 vomiting 7 days #21 tabs fluticasone propionate 50 1 spray intranasal BID #16 grams 07/09/22 mcg/actuation nasal spray,suspension (Flonase Allergy Relief) valsartan 80 mg tablet 80 mg PO BID #180 tabs 07/12/22 tizanidine 2 mg capsule 2 mg PO TID PRN muscle spasticity 07/30/22 #30 caps cefuroxime axetil 500 mg tablet 500 mg PO BID #10 tabs 09/03/22 Allergies Allergy/AdvReac Type Severity Reaction Status Date / Time Sulfa (Sulfonamide Allergy Intermediate RASH Verified 08/22/22 11:13 Antibiotics) amoxicillin [From AUGMENTIN] Allergy Unknown PER H&P Verified 08/22/22 11:13 clavulanic acid Allergy Unknown PER H&P Verified 08/22/22 11:13 [From AUGMENTIN] garlic [GARLIC] Allergy Unknown PER H&P Verified 08/22/22 11:13 metronidazole [From FLAGYL] Allergy Unknown OCULAR Verified 08/22/22 11:13 MIGRAINES penicillamine Allergy Unknown Unknown Verified 08/22/22 11:13 ciprofloxacin AdvReac Intermediate neuropathic Verified 08/22/22 11:13 pain lisinopril AdvReac Intermediate Cough Verified 08/22/22 11:13 nitrofurantoin AdvReac Mild GI side Verified 08/22/22 11:13 effects environmental Allergy Unknown Unknown Uncoded 07/30/22 14:40 flagyl Allergy Unknown Unknown Uncoded 07/30/22 14:40 From KEFLEX Allergy Unknown RASH Uncoded 07/30/22 14:40 Metoprolol Tartrate Allergy Unknown Unknown Uncoded 07/30/22 14:40 Sulfacet-R Allergy Unknown Unknown Uncoded 07/30/22 14:40 Review of Systems Constitutional: Constitutional: Denies body ache(s) and Denies fever(s) Integumentary/Breasts: Comments: Puncture wounds from cat teeth, right dorsal forearm Neurologic: Denies focal weakness and Denies paresthesias PMFSH Past Medical History Medical History Anxiety Diverticulitis Heart murmur Irritable bowel Surgical History History of appendectomy History of tonsillectomy Family History Family History Father No problems noted. Mother No problems noted. Social History Social History Household Members: Children Housing: House Are you a primary youth care professional to a significant other at home: No Do you presently have visiting nurse or other home services: No Alcohol intake: never Patient Tobacco Use Status: Former Tobacco user e-Cigarette/Vaping Use: Never Used Second Hand Smoke Exposure: No Advance Directives: Yes Advance Directives Information Provided: No Advance Directives on File: No service: No Current occupational status: retired Cognitive needs: No Hearing needs: No Vision needs: Yes (glasses) Physical Exam ED Vital Signs: Vital Signs - 24 hr 12/31/22 08:27 Temperature 98.1 F Pulse Rate 84 Respiratory Rate 16 Blood Pressure 171/104 H Pulse Oximetry 98 Oxygen Delivery Method Room Air BMI result Body Mass Index 29.9 Const General: no acute distress Orientation/consciousness: patient oriented x3 HENMT Head: Yes normal to inspection General nose exam: Normal external nose present Mouth: moist mucous membranes Throat: Yes posterior oropharynx normal, Yes tonsils normal and Yes uvula midline Eyes Eyelids: Yes eyelids normal Conjunctivae: conjunctivae normal Pupils: Equal, round and reactive pupils present Neck Neck: Yes supple Resp Effort & Inspection: normal respiratory effort Auscultation: clear to auscultation bilaterally Cardio Rate: regular rate Rhythm: regular rhythm Heart sounds: S1 normal heart sound present, S2 normal heart sound present, no gallops, Murmur heart sound present (2/6 systolic) systolic and no rubs GI Inspection: No distended Palpation (GI): Soft to palpation and nontender Auscultation: normal bowel sounds Skin Other: To really superficial puncture wounds/small skin tears, 2 3 mm, adjacent, on the right dorsal forearm General skin exam: other (Warm and dry) Neuro General: patient oriented x3 and CN's II-XI intact bilaterally Cranial nerves: Yes Equal, round and reactive pupils present Extrem General: Yes no pedal edema Psych Affect: normal affect Attitude: cooperative Medical Decision Making Medical Decision Making MDM Narrative: Patient with relatively superficial puncture wounds from a cat bite. Recommend initial treatment with wound care, topical antibiotics, given the patient's multiple allergies and given that these wounds are superficial. The wounds were cleansed with saline, and bacitracin ointment and a bandage were applied. Am prescribing cefuroxime to take only if local wound care does not prevent infection. Discharge Plan Discharge Clinical Impression: Cat bite of right forearm Patient Disposition: Home, Self-Care Instructions: Animal Bite (ED) Additional Instructions: Rinse the wound out under warm water for 5 minutes 3 times a day, then apply antibiotic ointment such as bacitracin. Take the prescribed antibiotic only if there is increased redness or swelling, purulent drainage, or fever which suggest an infection. In all likelihood with regular cleansing and topical antibiotics the wound will do fine. Prescriptions: New cefuroxime axetil 500 mg tablet 500 mg PO BID Qty: 10 0RF No Action fluticasone propionate 50 mcg/actuation spray,suspension 1 spray intranasal BID 30 Days Qty: 16 3RF alprazolam 0.25 mg tablet 0.25 mg PO TID PRN (Reason: anxiety) 30 Days Qty: 90 1RF cholecalciferol (vitamin D3) 50 mcg (2,000 unit) tablet 50 mcg PO DAILY Qty: 90 0RF valsartan 80 mg tablet 80 mg PO BID Qty: 180 2RF Rx Instructions: New Dose acetaminophen 325 mg Tablet 325 mg PO QID PRN (Reason: Pain) omeprazole 40 mg capsule,delayed release(DR/EC) 40 mg PO BID dicyclomine 10 mg capsule 10 - 20 mg PO Q6H PRN (Reason: cramps) tizanidine 2 mg capsule 2 mg PO TID PRN (Reason: muscle spasticity) Qty: 30 0RF ondansetron HCl 4 mg tablet 4 mg PO Q8H PRN (Reason: nausea and vomiting) 7 Days Qty: 21 0RF Hold Instructions: Doctor's Order fluticasone propionate [Flonase Allergy Relief] 50 mcg/actuation spray,suspension 1 spray intranasal BID Qty: 16 0RF Rx Instructions: administer into each nostril
[2022-09-03] MEDS: Diphth,Pertus(ACell),Tet Adult 0.5 ML SYRINGE IM (09:17)
--- NOTE | 2022-09-03 09:34 | PC.NURSE ---
BACITRACIN NOT AVAILABLE. BANDAID APPLIED. PT INSTRUCTED TO APPLY BACITRACIN THAT SHE HAS AT HOME
== END 2022-09-03 09:38 | disposition home or self-care (01) ==
PROVIDERS: Emergency Provider Emergency Medicine; PCP Physician Assistant
DX: S50.871A Other superficial bite of right forearm, initial encounter (principal); W55.01XA Bitten by cat, initial encounter; Y93.9 Activity, unspecified; Y92.019 Unspecified place in single-family (private) house as the place of occurrence of the external cause; Y99.9 Unspecified external cause status; Z23 Encounter for immunization
CPT/HCPCS: 90471; 90715; 99282; 99284

== ENCOUNTER 2022-09-10 13:59 | Outpatient (REF) | payer MEDICARE, OTHER, SELFPAY ==
[2022-09-10 16:04] LABS: Influenza A PCR NEGATIVE (Negative); Influenza B PCR NEGATIVE (Negative); Resp Syncy Virus RNA Qual PCR NEGATIVE (Negative); SARS COV2 PCR INHOUSE NEGATIVE (Negative)
== END 2022-09-10 14:00 | disposition home or self-care (01) ==
LOC: HO.LAB 13:59
PROVIDERS: Visit Provider Physician Assistant Medical
DX: Z20.822 Contact with and (suspected) exposure to COVID-19 (principal); R05.9 Cough, unspecified
CPT/HCPCS: 0241U

== ENCOUNTER 2022-09-25 20:52 | Emergency (ER) | payer MEDICARE, OTHER, SELFPAY ==
[2022-09-25 21:08] VITALS: BP 147/86; RESP 12; TEMP 36.7; O2SAT 99; BMI 29.5
[2022-09-25 21:42] LABS: MANUAL DIFF FLAG NO
[2022-09-25 21:49] LABS: Basophils Percent Auto 0.4 % (0-2); Eosinophils Absolute Auto 0.1 X10*3/uL (0.0-0.4); Hematocrit 34.8 % (37.0-47.0); Hemoglobin 11.5 g/dl (12.0-16.0); Imm Gran Abs Auto 0.02 X10*3/uL (0.00-0.03); Imm Gran Pct Auto 0.4 % (0.0-0.4); Lymphocytes Absolute Auto 0.9 X10*3/uL (1.2-4.9); Lymphocytes Percent Auto 17.3 % (20-40); Mean Corpuscular Hemoglobin 30.3 pg (27.0-33.0); Mean Corpuscular Volume 91.6 fL (80.0-98.0); Mean Platelet Volume 11.6 fL (9.4-12.3); Monocytes Absolute Auto 0.4 X10*3/uL (0.1-1.2); Monocytes Percent Auto 7.1 % (2-11); Neutrophils Absolute Auto 3.7 x10*3/uL (2.0-8.3); Neutrophils Percent Auto 72.8 % (45-73); Platelet Count 123 X10*3/uL (160-400); Red Cell Distribution Width 13.7 % (11.0-16.0)
[2022-09-25 22:07] LABS: Alanine Aminotransferase 15 U/L (0-31); Albumin Level 4.3 g/dL (3.5-5.0); Alkaline Phosphatase 114 U/L (39-117); Anion Gap 10 (12-20); Aspartate Amino Transferase 18 U/L (5-31); Bilirubin Total 0.6 mg/dL (0.0-1.0); Blood Urea Nitrogen 19 mg/dL (9-16); Calcium 9.9 mg/dL (8.4-10.2); Carbon Dioxide 31 mmol/L (22-29); Chloride 104 mmol/L (96-108); Creatinine Clr Calc Pharmacy 53.8; Estimated Glomerular Filt Rate > 60; Glucose Random 100 mg/dL (60-115); Sodium 141 mmol/L (135-145)
--- NOTE | 2022-09-25 22:32 | ED.GENADULT ---
HPI - General Adult General Chief complaint: General Medical Stated complaint: rectal bleeding Time Seen by Provider: 09/25/22 22:31 Source: patient Mode of arrival: ambulatory Limitations: no limitations History of Present Illness HPI narrative: 81-year-old female who presents emergency department for evaluation of bright red blood per rectum. The patient states she had a bowel movement around 16:00 hours which had solid formed stool and blood in the toilet bowl. She states the blood was bright red. She states that yesterday's bowel movement was formed stool but the stool was ?maple syrup colored ?. She has not noticed blood in her stool in the past. She is not on blood thinners. She states that she did not have any constipation or diarrhea. She denied abdominal pain. She states that over the past several days she has been having a burning sensation in her esophagus-she does have a history of GERD. She states she has had nausea with no vomiting. She states she has been feeling anxious, weak and tired. She states that she has had weight loss with no appetite. Patient states that she sees our entry rep, Dr. Escobar and she had a colonoscopy in 2019. Related Data Home Medications Medication Instructions Recorded Confirmed acetaminophen 325 mg tablet 325 mg PO QID PRN Pain 06/21/21 09/15/22 omeprazole 40 mg capsule,delayed 40 mg PO BID 06/08/22 09/15/22 release dicyclomine 10 mg capsule 10 - 20 mg PO Q6H PRN cramps 07/30/22 09/15/22 Previous Rx's Medication Instructions Recorded fluticasone propionate 50 1 spray intranasal BID 30 days #16 11/08/21 mcg/actuation nasal grams spray,suspension alprazolam 0.25 mg tablet 0.25 mg PO TID PRN anxiety 30 days 04/11/22 #90 tabs cholecalciferol (vitamin D3) 50 50 mcg PO DAILY #90 tabs 04/13/22 mcg (2,000 unit) tablet ondansetron HCl 4 mg tablet 4 mg PO Q8H PRN nausea and 06/25/22 vomiting 7 days #21 tabs fluticasone propionate 50 1 spray intranasal BID #16 grams 07/09/22 mcg/actuation nasal spray,suspension (Flonase Allergy Relief) valsartan 80 mg tablet 80 mg PO BID #180 tabs 07/12/22 tizanidine 2 mg capsule 2 mg PO TID PRN muscle spasticity 07/30/22 #30 caps cefuroxime axetil 500 mg tablet 500 mg PO BID #10 tabs 09/03/22 hydroxyzine pamoate 25 mg capsule 25 mg PO TID PRN itching #30 caps 09/10/22 (Vistaril) triamcinolone acetonide 0.1 % 1 appl topical BID 10 days #15 09/10/22 topical ointment grams famotidine 20 mg tablet 20 mg PO BID PRN heartburn 30 days 09/21/22 #60 tabs sucralfate 1 gram tablet 1 g PO BID 30 days #60 tabs 09/25/22 Allergies Allergy/AdvReac Type Severity Reaction Status Date / Time buspirone Allergy Intermediate Rash Verified 09/15/22 13:30 Sulfa (Sulfonamide Allergy Intermediate RASH Verified 09/15/22 13:25 Antibiotics) amoxicillin [From AUGMENTIN] Allergy Unknown PER H&P Verified 09/15/22 13:25 clavulanic acid Allergy Unknown PER H&P Verified 09/15/22 13:25 [From AUGMENTIN] garlic [GARLIC] Allergy Unknown PER H&P Verified 09/15/22 13:25 metronidazole [From FLAGYL] Allergy Unknown OCULAR Verified 09/15/22 13:25 MIGRAINES penicillamine Allergy Unknown Unknown Verified 09/15/22 13:25 ciprofloxacin AdvReac Intermediate neuropathic Verified 09/15/22 13:25 pain lisinopril AdvReac Intermediate Cough Verified 09/15/22 13:25 nitrofurantoin AdvReac Mild GI side Verified 09/15/22 13:25 effects environmental Allergy Unknown Unknown Uncoded 09/15/22 13:25 flagyl Allergy Unknown Unknown Uncoded 09/15/22 13:25 From KEFLEX Allergy Unknown RASH Uncoded 09/15/22 13:25 Metoprolol Tartrate Allergy Unknown Unknown Uncoded 09/15/22 13:25 Sulfacet-R Allergy Unknown Unknown Uncoded 09/15/22 13:25 Review of Systems Review of Systems: Yes all other systems are reviewed and are negative FOR[facility]LY [facility], [facility] Past Medical History FOR[facility]LY [facility], [facility]1983 Narrative: Social history: She denies tobacco, alcohol and drug use. Medical History Anxiety Diverticulitis Heart murmur Irritable bowel Surgical History History of appendectomy History of tonsillectomy Family History Family History Father No problems noted. Mother No problems noted. Social History Social History Household Members: Children Housing: House Are you a primary manager medicare marketing to a significant other at home: No Do you presently have visiting nurse or other home services: No Alcohol intake: never Patient Tobacco Use Status: Former Tobacco user e-Cigarette/Vaping Use: Never Used Second Hand Smoke Exposure: No Advance Directives: No Advance Directives Information Provided: No service: No Current occupational status: retired Cognitive needs: No Hearing needs: No Vision needs: Yes (glasses) Physical Exam ED Vital Signs: Vital Signs - 24 hr 09/25/22 21:08 Temperature 98.0 F Respiratory Rate 12 Blood Pressure 147/86 H Pulse Oximetry 99 Oxygen Delivery Method Room Air BMI result Body Mass Index 29.5 Const General: cooperative and no acute distress Orientation/consciousness: oriented to person and oriented to place Limitations: no limitations HENMT Head: Yes normal to inspection, Yes normocephalic and Yes atraumatic Ears: external ears normal General nose exam: Normal external nose present Face and sinus: Yes normal facial exam Mouth: Normal oral and palatal mucosa present Throat: Yes posterior oropharynx normal Eyes General: appearance normal, both eyes and all related structures Pupils: Equal, round and reactive pupils present Neck Neck: Yes normal visual inspection, Yes no lymphadenopathy, Yes trachea midline and Yes supple Chest Chest palpation & inspection: normal inspection of the chest and normal palpation of entire chest wall Resp Effort & Inspection: normal respiratory effort and able to speak in complete sentences Auscultation: clear to auscultation bilaterally Cardio Rate: regular rate Rhythm: regular rhythm Heart sounds: S1 normal heart sound present, S2 normal heart sound present and no murmurs GI Inspection: Yes normal to inspection Palpation (GI): Soft to palpation, nontender and no guarding Auscultation: normal bowel sounds Rectal Exam - Female: visual inspection normal, normal sphincter tone and heme positive stool (The patient had bright red blood in her rectum with loose brown stool) General: Yes no CVA tenderness Back/Spine/Pelvis Back: no CVA tenderness Skin General skin exam: no rashes or lesions noted Neuro General: oriented to person and oriented to place Cranial nerves: Yes CN's II-XII intact bilaterally and Yes Equal, round and reactive pupils present Cognition (Neuro): normal cognition Motor exam (neuro): 5/5 motor strength present throughout Extrem General: Yes normal to inspection Psych Appearance: grossly normal Speech and movement: Normal speech and movement present Affect: normal affect Attitude: cooperative Thought process: Normal thought process present Thought content: Normal thought content present Medical Decision Making Medical Decision Making MDM Narrative: 81-year-old female who presents emergency department for evaluation after having a bowel movement at 16:00 hours which consisted of formed stool with bright red blood in the toilet bowl. Patient had multiple other complaints which included burning nurse often gets, itchy sensation in her head and body, nausea with no vomiting, weight loss secondary to poor appetite anxiety, weakness and tiredness. Patient's vital signs were unremarkable with a blood pressure of 147/86. The patient's abdominal exam revealed no tenderness. Patient's rectal exam revealed loose brown stool with bright red blood which was Hemoccult positive. The patient did have a laboratory evaluation my independent interpretation is as follows: Chronic anemia with an H&H of 11.5 and 34.8 unchanged since 09/27/2021. He elevated CO2 of 31, elevated BUN of 16-these are chronic as well. Liver tests were normal. The patient's presentation is consistent with lower GI/rectal bleeding possibly secondary to an internal hemorrhoid or polyp. I did discuss this with her. The patient is stable and can be worked up as an outpatient. She was advised to use preparation H suppositories twice a day after each bowel movement for the next 1-2 weeks. She is to follow-up with her entry rep for re-evaluation and return to the emergency department for symptoms get worse. Lab Data 09/25/22 21:37 09/25/22 21:37 Labs: Lab Results 09/25/22 09/25/22 Range/Units 21:37 21:37 WBC 5.0 (4.8-10.8) X10*3/uL RBC 3.80 L (4.20-5.50) X10*6/uL Hgb 11.5 L (12.0-16.0) g/dl Hct 34.8 L (37.0-47.0) % MCV 91.6 (80.0-98.0) fL MCH 30.3 (27.0-33.0) pg MCHC 33.0 (31.0-35.0) g/dl RDW 13.7 (11.0-16.0) % Plt Count 123 L (160-400) X10*3/uL MPV 11.6 (9.4-12.3) fL Immature Gran % (Auto) 0.4 (0.0-0.4) % Neut % (Auto) 72.8 (45-73) % Lymph % (Auto) 17.3 L (20-40) % Archer % (Auto) 7.1 (2-11) % Eos % (Auto) 2.0 (0-4) % Baso % (Auto) 0.4 (0-2) % Lymph # (Auto) 0.9 L (1.2-4.9) X10*3/uL Archer # (Auto) 0.4 (0.1-1.2) X10*3/uL Eos # (Auto) 0.1 (0.0-0.4) X10*3/uL Baso # (Auto) 0.0 (0.0-0.2) X10*3/uL Abs Immat Gran (auto) 0.02 (0.00-0.03) X10*3/uL Absolute Neuts (auto) 3.7 (2.0-8.3) x10*3/uL Absolute Nucleated RBC 0.000 (0.0-0.012) X10*3/uL Nucleated RBC % (auto) 0.0 (0.0-0.2) /100WBC Sodium 141 (135-145) mmol/L Potassium 4.0 (3.3-5.1) mmol/L Chloride 104 (96-108) mmol/L Carbon Dioxide 31 H (22-29) mmol/L Anion Gap 10 L (12-20) BUN 19 H (9-16) mg/dL Creatinine 0.89 (0.5-1.4) mg/dL Estim Creat Clear Calc 53.8 Estimated GFR > 60 Random Glucose 100 (60-115) mg/dL Calcium 9.9 (8.4-10.2) mg/dL Total Bilirubin 0.6 (0.0-1.0) mg/dL AST 18 (5-31) U/L ALT 15 (0-31) U/L Alkaline Phosphatase 114 (39-117) U/L Total Protein 7.0 (6.5-8.0) g/dL Albumin 4.3 (3.5-5.0) g/dL Discharge Plan Discharge Clinical Impression: Bright red rectal bleeding Patient Disposition: Home, Self-Care Instructions: Rectal Bleeding (ED) Additional Instructions: Your comprehensive metabolic panel was unremarkable. You do have mild anemia but this is unchanged since September of 2021 which is reassuring. Your examination did reveal blood in your rectum. At this time, I suspect that you either having internal hemorrhoid or a polyp that is bleeding. Use preparation H suppositories twice a day and after each bowel movement for 1 week to see if this improves her symptoms. Follow-up with your entry rep, Dr. Escobar for re-evaluation. Follow-up with your doctor in 2 days. Please return to the emergency department if your symptoms get worse or if you develop any symptoms that are concerning to you. Prescriptions: No Action fluticasone propionate 50 mcg/actuation spray,suspension 1 spray intranasal BID 30 Days Qty: 16 3RF alprazolam 0.25 mg tablet 0.25 mg PO TID PRN (Reason: anxiety) 30 Days Qty: 90 1RF cholecalciferol (vitamin D3) 50 mcg (2,000 unit) tablet 50 mcg PO DAILY Qty: 90 0RF valsartan 80 mg tablet 80 mg PO BID Qty: 180 2RF Rx Instructions: New Dose famotidine 20 mg tablet 20 mg PO BID PRN (Reason: heartburn) 30 Days Qty: 60 1RF sucralfate 1 gram tablet 1 g PO BID 30 Days Qty: 60 0RF Rx Instructions: crush tablet and mix with water and take twice a day. acetaminophen 325 mg Tablet 325 mg PO QID PRN (Reason: Pain) cefuroxime axetil 500 mg tablet 500 mg PO BID Qty: 10 0RF omeprazole 40 mg capsule,delayed release(DR/EC) 40 mg PO BID dicyclomine 10 mg capsule 10 - 20 mg PO Q6H PRN (Reason: cramps) tizanidine 2 mg capsule 2 mg PO TID PRN (Reason: muscle spasticity) Qty: 30 0RF hydroxyzine pamoate [Vistaril] 25 mg capsule 25 mg PO TID PRN (Reason: itching) Qty: 30 0RF triamcinolone acetonide 0.1 % ointment 1 appl topical BID 10 Days Qty: 15 0RF ondansetron HCl 4 mg tablet 4 mg PO Q8H PRN (Reason: nausea and vomiting) 7 Days Qty: 21 0RF Hold Instructions: Doctor's Order fluticasone propionate [Flonase Allergy Relief] 50 mcg/actuation spray,suspension 1 spray intranasal BID Qty: 16 0RF Rx Instructions: administer into each nostril
== END 2022-09-25 23:41 | disposition home or self-care (01) ==
PROVIDERS: Emergency Provider Emergency Medicine Emergency Medical Services; PCP Physician Assistant
DX: K62.5 Hemorrhage of anus and rectum (principal); Z87.891 Personal history of nicotine dependence; Z79.899 Other long term (current) drug therapy
CPT/HCPCS: 36415; 80053; 85025; 99283

== ENCOUNTER → 2022-10-13 09:22 | Outpatient (BNVA) | payer MEDICARE, OTHER, SELFPAY | PROVIDERS: PCP Physician Assistant; Visit Provider Internal Medicine | DX: Z13.89 Encounter for screening for other disorder (principal) ==

== ENCOUNTER 2022-10-24 08:18 | Emergency (ER) | payer MEDICARE, OTHER, SELFPAY ==
[2022-10-24 08:24] VITALS: BP 127/85; PULSE 88; RESP 18; TEMP 36.7; O2SAT 97; BMI 29.5
[2022-10-24 08:28] VITALS: BP 127/85; PULSE 88; RESP 18; TEMP 36.7; O2SAT 97; BMI 29.5
--- NOTE | 2022-10-24 11:39 | ED_ITS ---
HPI - Nausea/Vomiting/Diarrhea General Chief complaint: Nausea/Vomiting/Diarrhea Stated complaint: Nausea Time Seen by Provider: 10/24/22 11:39 Source: patient Mode of arrival: ambulatory Limitations: no limitations History of Present Illness HPI Narrative: patient with weeks of nausea and reflux for the past few weeks. recently placed on zpack for sinusitis. Her symptoms started after taking the medication. MD elicited complaint: nausea Onset (ago): week(s) Associated symptoms: denies other symptoms Related Data Home Medications Medication Instructions Recorded Confirmed acetaminophen 325 mg tablet 325 mg PO QID PRN Pain 06/21/21 09/15/22 omeprazole 40 mg capsule,delayed 40 mg PO BID 06/08/22 09/15/22 release dicyclomine 10 mg capsule 10 - 20 mg PO Q6H PRN cramps 07/30/22 09/15/22 Previous Rx's Medication Instructions Recorded fluticasone propionate 50 1 spray intranasal BID 30 days #16 11/08/21 mcg/actuation nasal grams spray,suspension alprazolam 0.25 mg tablet 0.25 mg PO TID PRN anxiety 30 days 04/11/22 #90 tabs cholecalciferol (vitamin D3) 50 50 mcg PO DAILY #90 tabs 04/13/22 mcg (2,000 unit) tablet ondansetron HCl 4 mg tablet 4 mg PO Q8H PRN nausea and 06/25/22 vomiting 7 days #21 tabs fluticasone propionate 50 1 spray intranasal BID #16 grams 07/09/22 mcg/actuation nasal spray,suspension (Flonase Allergy Relief) valsartan 80 mg tablet 80 mg PO BID #180 tabs 07/12/22 hydroxyzine pamoate 25 mg capsule 25 mg PO TID PRN itching #30 caps 09/10/22 (Vistaril) triamcinolone acetonide 0.1 % 1 appl topical BID 10 days #15 09/10/22 topical ointment grams famotidine 20 mg tablet 20 mg PO BID PRN heartburn 30 days 09/21/22 #60 tabs citalopram 10 mg tablet 10 mg PO DAILY #30 tabs 10/06/22 sucralfate 100 mg/mL oral 10 ml PO BID #1,000 mL 10/24/22 suspension (Carafate) Allergies Allergy/AdvReac Type Severity Reaction Status Date / Time buspirone Allergy Intermediate Rash Verified 10/06/22 10:57 Sulfa (Sulfonamide Allergy Intermediate RASH Verified 10/06/22 10:57 Antibiotics) amoxicillin [From AUGMENTIN] Allergy Unknown PER H&P Verified 10/06/22 10:57 clavulanic acid Allergy Unknown PER H&P Verified 10/06/22 10:57 [From AUGMENTIN] garlic [GARLIC] Allergy Unknown PER H&P Verified 10/06/22 10:57 metronidazole [From FLAGYL] Allergy Unknown OCULAR Verified 10/06/22 10:57 MIGRAINES penicillamine Allergy Unknown Unknown Verified 10/06/22 10:57 ciprofloxacin AdvReac Intermediate neuropathic Verified 10/06/22 10:57 pain lisinopril AdvReac Intermediate Cough Verified 10/06/22 10:57 nitrofurantoin AdvReac Mild GI side Verified 10/06/22 10:57 effects environmental Allergy Unknown Unknown Uncoded 09/15/22 13:25 flagyl Allergy Unknown Unknown Uncoded 09/15/22 13:25 From KEFLEX Allergy Unknown RASH Uncoded 09/15/22 13:25 Metoprolol Tartrate Allergy Unknown Unknown Uncoded 09/15/22 13:25 Sulfacet-R Allergy Unknown Unknown Uncoded 09/15/22 13:25 Review of Systems Review of Systems: Yes all other systems are reviewed and are negative Gastrointestinal: Comments: reflux and nausea Neurologic: Denies Sensory deficit (Neuro) [facility] Past Medical History Medical History Anxiety Diverticulitis Heart murmur Irritable bowel Surgical History History of appendectomy History of tonsillectomy Family History Family History Father No problems noted. Mother No problems noted. Social History Social History Household Members: Children Housing: House Are you a primary workforce investment act career manager to a significant other at home: No Do you presently have visiting nurse or other home services: No Alcohol intake: former Patient Tobacco Use Status: Former Tobacco user Smoked in Last 30 Days: No e-Cigarette/Vaping Use: Never Used Second Hand Smoke Exposure: No Use of substances other than those prescribed or required for medical reasons: No Advance Directives: Yes Advance Directives on File: No service: No Current occupational status: retired Cognitive needs: No Hearing needs: No Vision needs: Yes (glasses) Physical Exam Vital Signs: Vital Signs: Last Vital Signs Temp 98.0 F 10/24/22 08:28 Pulse 89 10/24/22 12:21 Resp 16 10/24/22 12:21 BP 159/109 H 10/24/22 12:21 Pulse Ox 95 10/24/22 12:21 O2 Del Method 10/24/22 12:21 BMI result Body Mass Index 29.5 Const: Other: anxious elderly female General: healthy appearing Nutritional Appearance: average body habitus Orientation/consciousness: oriented to person and patient oriented x3 Limitations: no limitations HEENT: Head: Yes normal to inspection Ears: external ears normal General nose exam: Normal external nose present Mouth: Normal oral and palatal mucosa present and oropharynx normal Throat: Yes posterior oropharynx normal Eyes: General: appearance normal, both eyes and all related structures Neck: Other: supple Neck: Yes normal visual inspection Chest: Chest palpation & inspection: normal inspection of the chest Resp: Auscultation: clear to auscultation bilaterally Cardio: Jugular venous distension: no JVD Rate: regular rate Rhythm: regular rhythm Heart sounds: S1 normal heart sound present and S2 normal heart sound present GI: Inspection: Yes normal to inspection Palpation (GI): Soft to palpation, nontender and No hepatosplenomegaly present Auscultation: normal bowel sounds : General: Yes no CVA tenderness Back/Spine/Pelvis: Back: no CVA tenderness Skin: General skin exam: no rashes or lesions noted Neuro: General: oriented to person and patient oriented x3 Cranial nerves: Yes CN's II-XII intact bilaterally Motor exam (neuro): 5/5 motor strength present throughout Sensory Exam: No Sensory deficit (Neuro) Extrem: General: Yes normal to inspection Psych: Appearance: grossly normal Course Reevaluation(s) Reevaluation #1: patient not really feeling better, will try the carafate and have the patient follow up with GI Time: 14:17 Medications Administered Discontinued Medications Generic Name Dose Route Start Last Admin Trade Name Freq PRN Reason Stop Dose Admin Sucralfate 1 gm 10/24/22 11:44 10/24/22 12:27 Sucralfate Oral Suspension 1 Gm/10 Ml Oral.Susp PO 10/24/22 11:45 1 gm ONCE ONE Administration Medical Decision Making Differential Diagnosis Differential Diagnoses: The differential diagnosis associated with the p resentation includes (gastritis, reflux, ulcer disease) Lab Data MDM Lab Attestation statement: I reviewed the patient's lab results. 10/24/22 12:04 10/24/22 12:04 Labs: Lab Results 10/24/22 10/24/22 Range/Units 12:04 12:04 WBC 3.7 L (4.8-10.8) X10*3/uL RBC 3.60 L (4.20-5.50) X10*6/uL Hgb 11.0 L (12.0-16.0) g/dl Hct 33.7 L (37.0-47.0) % MCV 93.6 (80.0-98.0) fL MCH 30.6 (27.0-33.0) pg MCHC 32.6 (31.0-35.0) g/dl RDW 13.9 (11.0-16.0) % Plt Count 113 L (160-400) X10*3/uL MPV 11.8 (9.4-12.3) fL Immature Gran % (Auto) 0.3 (0.0-0.4) % Neut % (Auto) 73.4 H (45-73) % Lymph % (Auto) 18.1 L (20-40) % [place] % (Auto) 5.8 (2-11) % Eos % (Auto) 1.9 (0-4) % Baso % (Auto) 0.5 (0-2) % Lymph # (Auto) 0.7 L (1.2-4.9) X10*3/uL [place] # (Auto) 0.2 (0.1-1.2) X10*3/uL Eos # (Auto) 0.1 (0.0-0.4) X10*3/uL Baso # (Auto) 0.0 (0.0-0.2) X10*3/uL Abs Immat Gran (auto) 0.01 (0.00-0.03) X10*3/uL Absolute Neuts (auto) 2.7 (2.0-8.3) x10*3/uL Absolute Nucleated RBC 0.000 (0.0-0.012) X10*3/uL Nucleated RBC % (auto) 0.0 (0.0-0.2) /100WBC Sodium 142 (135-145) mmol/L Potassium 4.2 (3.3-5.1) mmol/L Chloride 103 (96-108) mmol/L Carbon Dioxide 28 (22-29) mmol/L Anion Gap 15 (12-20) BUN 16 (9-16) mg/dL Creatinine 0.85 (0.5-1.4) mg/dL Estim Creat Clear Calc 55.3 Estimated GFR > 60 Random Glucose 95 (60-115) mg/dL Calcium 9.6 (8.4-10.2) mg/dL Total Bilirubin 0.8 (0.0-1.0) mg/dL AST 16 (5-31) U/L ALT 12 (0-31) U/L Alkaline Phosphatase 95 (39-117) U/L Total Protein 6.9 (6.5-8.0) g/dL Albumin 4.3 (3.5-5.0) g/dL Lipase 14 (8-78) U/L Tests considered The following testing was considered but not selected: CT of abdomen was considered was not indicated based on the patients exam and labs Discharge Plan Discharge Clinical Impression: Epigastric discomfort, GERD (gastroesophageal reflux disease) Patient Disposition: Home, Self-Care Instructions: Diet for Stomach Ulcers and Gastritis (ED), Gastroesophageal Reflux Disease (ED), Indigestion (ED) Prescriptions: New sucralfate [Carafate] 100 mg/mL suspension 10 ml PO BID Qty: 1000 0RF No Action fluticasone propionate 50 mcg/actuation spray,suspension 1 spray intranasal BID 30 Days Qty: 16 3RF alprazolam 0.25 mg tablet 0.25 mg PO TID PRN (Reason: anxiety) 30 Days Qty: 90 1RF cholecalciferol (vitamin D3) 50 mcg (2,000 unit) tablet 50 mcg PO DAILY Qty: 90 0RF valsartan 80 mg tablet 80 mg PO BID Qty: 180 2RF Rx Instructions: New Dose famotidine 20 mg tablet 20 mg PO BID PRN (Reason: heartburn) 30 Days Qty: 60 1RF acetaminophen 325 mg Tablet 325 mg PO QID PRN (Reason: Pain) omeprazole 40 mg capsule,delayed release(DR/EC) 40 mg PO BID dicyclomine 10 mg capsule 10 - 20 mg PO Q6H PRN (Reason: cramps) hydroxyzine pamoate [Vistaril] 25 mg capsule 25 mg PO TID PRN (Reason: itching) Qty: 30 0RF triamcinolone acetonide 0.1 % ointment 1 appl topical BID 10 Days Qty: 15 0RF citalopram 10 mg tablet 10 mg PO DAILY Qty: 30 0RF ondansetron HCl 4 mg tablet 4 mg PO Q8H PRN (Reason: nausea and vomiting) 7 Days Qty: 21 0RF Hold Instructions: Doctor's Order fluticasone propionate [Flonase Allergy Relief] 50 mcg/actuation spray,suspension 1 spray intranasal BID Qty: 16 0RF Rx Instructions: administer into each nostril
[2022-10-24 12:08] LABS: MANUAL DIFF FLAG NO
[2022-10-24 12:20] LABS: Basophils Percent Auto 0.5 % (0-2); Eosinophils Absolute Auto 0.1 X10*3/uL (0.0-0.4); Eosinophils Percent Auto 1.9 % (0-4); Hematocrit 33.7 % (37.0-47.0); Imm Gran Abs Auto 0.01 X10*3/uL (0.00-0.03); Imm Gran Pct Auto 0.3 % (0.0-0.4); Lymphocytes Absolute Auto 0.7 X10*3/uL (1.2-4.9); Lymphocytes Percent Auto 18.1 % (20-40); Mean Corpuscular HGB Conc 32.6 g/dl (31.0-35.0); Mean Corpuscular Hemoglobin 30.6 pg (27.0-33.0); Mean Corpuscular Volume 93.6 fL (80.0-98.0); Mean Platelet Volume 11.8 fL (9.4-12.3); Monocytes Absolute Auto 0.2 X10*3/uL (0.1-1.2); Monocytes Percent Auto 5.8 % (2-11); Neutrophils Absolute Auto 2.7 x10*3/uL (2.0-8.3); Neutrophils Percent Auto 73.4 % (45-73); Platelet Count 113 X10*3/uL (160-400); Red Cell Distribution Width 13.9 % (11.0-16.0); White Blood Count 3.7 X10*3/uL (4.8-10.8)
[2022-10-24 12:21] VITALS: BP 159/109; PULSE 89; RESP 16; O2SAT 95
[2022-10-24] MEDS: Sucralfate Oral Suspension 1 GM/10 ML ORAL.SUSP PO (12:27)
[2022-10-24 12:30] LABS: Alanine Aminotransferase 12 U/L (0-31); Albumin Level 4.3 g/dL (3.5-5.0); Alkaline Phosphatase 95 U/L (39-117); Anion Gap 15 (12-20); Aspartate Amino Transferase 16 U/L (5-31); Bilirubin Total 0.8 mg/dL (0.0-1.0); Blood Urea Nitrogen 16 mg/dL (9-16); Calcium 9.6 mg/dL (8.4-10.2); Carbon Dioxide 28 mmol/L (22-29); Chloride 103 mmol/L (96-108); Creatinine Clr Calc Pharmacy 55.3; Estimated Glomerular Filt Rate > 60; Glucose Random 95 mg/dL (60-115); Lipase 14 U/L (8-78); Potassium 4.2 mmol/L (3.3-5.1); Sodium 142 mmol/L (135-145); Total Protein 6.9 g/dL (6.5-8.0)
== END 2022-10-24 14:31 | disposition home or self-care (01) ==
PROVIDERS: Emergency Provider Emergency Medicine; PCP Physician Assistant
DX: R10.13 Epigastric pain (principal); K21.9 Gastro-esophageal reflux disease without esophagitis; Z87.891 Personal history of nicotine dependence; Z79.899 Other long term (current) drug therapy
CPT/HCPCS: 36415; 80053; 83690; 85025; 99283; 99284

== ENCOUNTER → 2022-11-03 13:47 | Outpatient (BNVA) | payer MEDICARE, OTHER, SELFPAY | PROVIDERS: PCP Physician Assistant; Visit Provider Physician Assistant | DX: M17.11 Unilateral primary osteoarthritis, right knee (principal); M17.12 Unilateral primary osteoarthritis, left knee | CPT/HCPCS: 20610; 99212; J1040 ==

== ENCOUNTER 2022-11-04 13:24 | Outpatient (REF) | payer MEDICARE, OTHER, SELFPAY ==
[2022-11-04 16:37] LABS: MANUAL DIFF FLAG NO
[2022-11-04 16:43] LABS: Basophils Percent Auto 0.7 % (0-2); Eosinophils Percent Auto 0.7 % (0-4); Hematocrit 35.4 % (37.0-47.0); Hemoglobin 11.6 g/dl (12.0-16.0); Imm Gran Abs Auto 0.02 X10*3/uL (0.00-0.03); Imm Gran Pct Auto 0.3 % (0.0-0.4); Lymphocytes Absolute Auto 0.7 X10*3/uL (1.2-4.9); Lymphocytes Percent Auto 11.4 % (20-40); Mean Corpuscular HGB Conc 32.8 g/dl (31.0-35.0); Mean Corpuscular Hemoglobin 30.4 pg (27.0-33.0); Mean Corpuscular Volume 92.9 fL (80.0-98.0); Mean Platelet Volume 12.8 fL (9.4-12.3); Monocytes Absolute Auto 0.3 X10*3/uL (0.1-1.2); Monocytes Percent Auto 4.9 % (2-11); Neutrophils Absolute Auto 5.1 x10*3/uL (2.0-8.3); Platelet Count 125 X10*3/uL (160-400); Red Blood Count 3.81 X10*6/uL (4.20-5.50); Red Cell Distribution Width 13.9 % (11.0-16.0); White Blood Count 6.2 X10*3/uL (4.8-10.8)
[2022-11-04 17:05] LABS: Anion Gap 12 (12-20); Blood Urea Nitrogen 21 mg/dL (9-16); Calcium 9.7 mg/dL (8.4-10.2); Carbon Dioxide 31 mmol/L (22-29); Chloride 101 mmol/L (96-108); Estimated Glomerular Filt Rate > 60; Glucose Random 119 mg/dL (60-115); Potassium 4.3 mmol/L (3.3-5.1); Sodium 140 mmol/L (135-145)
== END 2022-11-04 13:25 | disposition home or self-care (01) ==
LOC: HO.HMGCLDS 13:24
PROVIDERS: Physician Assistant; PCP Physician Assistant; Visit Provider Physician Assistant
DX: Z01.89 Encounter for other specified special examinations (principal); D64.9 Anemia, unspecified
CPT/HCPCS: 36415; 80048; 85025

== ENCOUNTER 2022-11-10 02:52 | Emergency (ER) | payer MEDICARE, OTHER, SELFPAY ==
--- NOTE | 2022-11-10 | ECG_ITS ---
Test Reason : EXTRIMITY PAIN/HYPERTENSION Blood Pressure : / mmHG Vent. Rate : 094 BPM Atrial Rate : 094 BPM P-R Int : 198 ms QRS Dur : 086 ms QT Int : 370 ms P-R-T Axes : 053 000 034 degrees QTc Int : 462 ms Normal sinus rhythm Cannot rule out Inferior infarct (cited on or before 10-NOV-2022) Borderline ECG When compared with ECG of 24-JUL-2022 11:35, No significant change was found Referred By: Declan Combs Electronically Signed By:WILBUR MCFARLAND
[2022-11-10 02:58] VITALS: BMI 29.5
[2022-11-10 03:05] VITALS: BP 170/104; PULSE 98; RESP 18; TEMP 36.5; O2SAT 98
--- NOTE | 2022-11-10 03:10 | ED.GENADULT ---
HPI - General Adult General Chief complaint: Extremity Problem Stated complaint: body pain, possible blood clots Time Seen by Provider: 11/10/22 03:10 Source: patient Mode of arrival: ambulatory Limitations: no limitations History of Present Illness HPI narrative: Patient has severe anxiety, arthritis comes here for spasm of all 4 extremities started for last 24 hours no chest pain or shortness of breath no palpitation no urinary complaints patient feels full body spasm very anxious Related Data Home Medications Medication Instructions Recorded Confirmed acetaminophen 325 mg tablet 325 mg PO QID PRN Pain 06/21/21 09/15/22 Previous Rx's Medication Instructions Recorded alprazolam 0.25 mg tablet 0.25 mg PO TID PRN anxiety 30 days 04/11/22 #90 tabs cholecalciferol (vitamin D3) 50 50 mcg PO DAILY #90 tabs 04/13/22 mcg (2,000 unit) tablet valsartan 80 mg tablet 80 mg PO BID #180 tabs 07/12/22 hydroxyzine pamoate 25 mg capsule 25 mg PO TID PRN itching #30 caps 09/10/22 (Vistaril) triamcinolone acetonide 0.1 % 1 appl topical BID 10 days #15 09/10/22 topical ointment grams famotidine 20 mg tablet 20 mg PO BID PRN heartburn 30 days 09/21/22 #60 tabs citalopram 10 mg tablet 10 mg PO DAILY #30 tabs 10/06/22 sucralfate 100 mg/mL oral 10 ml PO BID #1,000 mL 10/24/22 suspension (Carafate) fluticasone propionate 50 1 spray intranasal BID #16 grams 10/25/22 mcg/actuation nasal spray,suspension (Flonase Allergy Relief) ondansetron 4 mg disintegrating 4 mg PO Q8-12H PRN nausea and 11/04/22 tablet vomiting #14 tabs dicyclomine 10 mg capsule 10 mg PO Q6H PRN cramps 10 days 11/09/22 #40 caps Allergies Allergy/AdvReac Type Severity Reaction Status Date / Time buspirone Allergy Intermediate Rash Verified 11/10/22 03:00 Sulfa (Sulfonamide Allergy Intermediate RASH Verified 11/10/22 03:00 Antibiotics) amoxicillin [From AUGMENTIN] Allergy Unknown PER H&P Verified 11/10/22 03:00 clavulanic acid Allergy Unknown PER H&P Verified 11/10/22 03:00 [From AUGMENTIN] garlic [GARLIC] Allergy Unknown PER H&P Verified 11/10/22 03:00 metronidazole [From FLAGYL] Allergy Unknown OCULAR Verified 11/10/22 03:00 MIGRAINES penicillamine Allergy Unknown Unknown Verified 11/10/22 03:00 ciprofloxacin AdvReac Intermediate neuropathic Verified 11/10/22 03:00 pain lisinopril AdvReac Intermediate Cough Verified 11/10/22 03:00 nitrofurantoin AdvReac Mild GI side Verified 11/10/22 03:00 effects environmental Allergy Unknown Unknown Uncoded 11/10/22 03:00 flagyl Allergy Unknown Unknown Uncoded 11/10/22 03:00 From KEFLEX Allergy Unknown RASH Uncoded 11/10/22 03:00 Metoprolol Tartrate Allergy Unknown Unknown Uncoded 11/10/22 03:00 Sulfacet-R Allergy Unknown Unknown Uncoded 11/10/22 03:00 Review of Systems Review of Systems: Yes all other systems are reviewed and are negative [facility] Past Medical History Medical History Anxiety Diverticulitis Heart murmur Irritable bowel Surgical History History of appendectomy History of tonsillectomy Family History Family History Father No problems noted. Mother No problems noted. Social History Social History Household Members: Children Housing: House Are you a primary home health care coordinator to a significant other at home: No Do you presently have visiting nurse or other home services: No Alcohol intake: never Patient Tobacco Use Status: Former Tobacco user Smoked in Last 30 Days: No e-Cigarette/Vaping Use: Never Used Second Hand Smoke Exposure: No Use of substances other than those prescribed or required for medical reasons: No Advance Directives: No service: No Current occupational status: retired Cognitive needs: No Hearing needs: No Vision needs: Yes (glasses) Physical Exam ED Vital Signs: Vital Signs - 24 hr 11/10/22 03:05 11/10/22 03:58 11/10/22 05:00 Temperature 97.7 F 97.8 F 97.9 F Pulse Rate 98 100 93 Respiratory Rate 18 24 H 13 Blood Pressure 170/104 H 158/99 H 127/83 Pulse Oximetry 98 99 98 Oxygen Delivery Method Room Air Room Air Room Air BMI result Body Mass Index 29.5 Appearance: Alert. Oriented X3. Anxious Eyes: PERRLA, No Nystagmus ENT: Pharynx normal. Oral Mucosa moist Neck: Normal inspection. Neck supple. CVS: Normal heart rate and rhythm. Pulses normal. Respiratory: No respiratory distress. Equal air entry bilateral, no wheezing/rales/rhonchi Abdomen: Soft and nontender. Bowel sounds are present, no mass palpable, no CVA tenderness Skin: Skin warm and dry. Normal skin color. Normal skin turgor. Extremities: No lower extremity edema. No calf tenderness Neuro: Oriented X 3. No motor deficit. No sensory deficit.No cerebellar signs , cranial nerves II-XII intact Medications Administered Discontinued Medications Generic Name Dose Route Start Last Admin Trade Name Jongq PRN Reason Stop Dose Admin Lorazepam 1 mg 11/10/22 03:36 11/10/22 03:50 Lorazepam 2 Mg/Ml Vial IVPUSH 11/10/22 03:37 1 mg ONCE ONE Administration Medical Decision Making Medical Decision Making [facility] Narrative: Patient with anxiety came with multiple complaints with muscle spasm workup negative lytes are normal discharge patient home feeling much better after Ativan Lab Data [facility] Lab Attestation statement: I reviewed the patient's lab results. 11/10/22 03:45 11/10/22 03:45 Labs: Lab Results 11/10/22 11/10/22 11/10/22 Range/Units 03:45 03:45 03:45 WBC 5.1 (4.8-10.8) X10*3/uL RBC 3.77 L (4.20-5.50) X10*6/uL Hgb 11.6 L (12.0-16.0) g/dl Hct 35.3 L (37.0-47.0) % MCV 93.6 (80.0-98.0) fL MCH 30.8 (27.0-33.0) pg MCHC 32.9 (31.0-35.0) g/dl RDW 13.9 (11.0-16.0) % Plt Count 133 L (160-400) X10*3/uL MPV 11.5 (9.4-12.3) fL Immature Gran % (Auto) 0.2 (0.0-0.4) % Neut % (Auto) 70.5 (45-73) % Lymph % (Auto) 20.4 (20-40) % [place] % (Auto) 6.3 (2-11) % Eos % (Auto) 2.2 (0-4) % Baso % (Auto) 0.4 (0-2) % Lymph # (Auto) 1.0 L (1.2-4.9) X10*3/uL [place] # (Auto) 0.3 (0.1-1.2) X10*3/uL Eos # (Auto) 0.1 (0.0-0.4) X10*3/uL Baso # (Auto) 0.0 (0.0-0.2) X10*3/uL Abs Immat Gran (auto) 0.01 (0.00-0.03) X10*3/uL Absolute Neuts (auto) 3.6 (2.0-8.3) x10*3/uL Absolute Nucleated RBC 0.000 (0.0-0.012) X10*3/uL Nucleated RBC % (auto) 0.0 (0.0-0.2) /100WBC Sodium 140 (135-145) mmol/L Potassium 5.0 (3.3-5.1) mmol/L Chloride 101 (96-108) mmol/L Carbon Dioxide 29 (22-29) mmol/L Anion Gap 15 (12-20) BUN 35 H (9-16) mg/dL Creatinine 0.99 (0.5-1.4) mg/dL Estim Creat Clear Calc 47.5 Estimated GFR 54 Random Glucose 109 (60-115) mg/dL Calcium 9.7 (8.4-10.2) mg/dL Magnesium 2.1 (1.6-2.6) mg/dL Total Bilirubin 0.4 (0.0-1.0) mg/dL AST 26 (5-31) U/L ALT 16 (0-31) U/L Alkaline Phosphatase 109 (39-117) U/L Total Creatine Kinase 162 H (26-140) U/L Total Protein 7.4 (6.5-8.0) g/dL Albumin 4.4 (3.5-5.0) g/dL COVID-19 (MANDI) Negative (Negative) COVID-19 Clin Com See Note Influenza Type A ([place]) (Negative) Influenza Type B ([place]) (Negative) Influenza A & B Note 11/10/22 Range/Units 03:45 WBC (4.8-10.8) X10*3/uL RBC (4.20-5.50) X10*6/uL Hgb (12.0-16.0) g/dl Hct (37.0-47.0) % MCV (80.0-98.0) fL MCH (27.0-33.0) pg MCHC (31.0-35.0) g/dl RDW (11.0-16.0) % Plt Count (160-400) X10*3/uL MPV (9.4-12.3) fL Immature Gran % (Auto) (0.0-0.4) % Neut % (Auto) (45-73) % Lymph % (Auto) (20-40) % [place] % (Auto) (2-11) % Eos % (Auto) (0-4) % Baso % (Auto) (0-2) % Lymph # (Auto) (1.2-4.9) X10*3/uL [place] # (Auto) (0.1-1.2) X10*3/uL Eos # (Auto) (0.0-0.4) X10*3/uL Baso # (Auto) (0.0-0.2) X10*3/uL Abs Immat Gran (auto) (0.00-0.03) X10*3/uL Absolute Neuts (auto) (2.0-8.3) x10*3/uL Absolute Nucleated RBC (0.0-0.012) X10*3/uL Nucleated RBC % (auto) (0.0-0.2) /100WBC Sodium (135-145) mmol/L Potassium (3.3-5.1) mmol/L Chloride (96-108) mmol/L Carbon Dioxide (22-29) mmol/L Anion Gap (12-20) BUN (9-16) mg/dL Creatinine (0.5-1.4) mg/dL Estim Creat Clear Calc Estimated GFR Random Glucose (60-115) mg/dL Calcium (8.4-10.2) mg/dL Magnesium (1.6-2.6) mg/dL Total Bilirubin (0.0-1.0) mg/dL AST (5-31) U/L ALT (0-31) U/L Alkaline Phosphatase (39-117) U/L Total Creatine Kinase (26-140) U/L Total Protein (6.5-8.0) g/dL Albumin (3.5-5.0) g/dL COVID-19 (MANDI) (Negative) COVID-19 Clin Com Influenza Type A ([place]) Negative (Negative) Influenza Type B ([place]) Negative (Negative) Influenza A & B Note See Note Independent Interpretation I performed an independent interpretation of an: EKG Interpretation: Normal sinus rhythm heart rate 94 beats per minute normal interval normal axis no acute ST T wave changes no acute ischemia Discharge Plan Discharge Clinical Impression: Anxiety Patient Disposition: Home, Self-Care Instructions: Anxiety (ED) Additional Instructions: Continue your medications as prescribed by PCP and follow-up with him Prescriptions: No Action alprazolam 0.25 mg tablet 0.25 mg PO TID PRN (Reason: anxiety) 30 Days Qty: 90 1RF cholecalciferol (vitamin D3) 50 mcg (2,000 unit) tablet 50 mcg PO DAILY Qty: 90 0RF valsartan 80 mg tablet 80 mg PO BID Qty: 180 2RF Rx Instructions: New Dose famotidine 20 mg tablet 20 mg PO BID PRN (Reason: heartburn) 30 Days Qty: 60 1RF fluticasone propionate [Flonase Allergy Relief] 50 mcg/actuation spray,suspension 1 spray intranasal BID Qty: 16 0RF Rx Instructions: administer into each nostril acetaminophen 325 mg Tablet 325 mg PO QID PRN (Reason: Pain) sucralfate [Carafate] 100 mg/mL suspension 10 ml PO BID Qty: 1000 0RF hydroxyzine pamoate [Vistaril] 25 mg capsule 25 mg PO TID PRN (Reason: itching) Qty: 30 0RF triamcinolone acetonide 0.1 % ointment 1 appl topical BID 10 Days Qty: 15 0RF citalopram 10 mg tablet 10 mg PO DAILY Qty: 30 0RF dicyclomine 10 mg capsule 10 mg PO Q6H PRN (Reason: cramps) 10 Days Qty: 40 0RF ondansetron 4 mg tablet,disintegrating 4 mg PO Q8-12H PRN (Reason: nausea and vomiting) Qty: 14 0RF
--- NOTE | 2022-11-10 03:18 | PC.NURSE ---
Pt A&Ox4, reports bilateral hands/legs tight, numb, tingly. Feeling out of it, not myself , with nausea. Denies any CP, palpitations, or SOB. Pt symmetrical smile, hand melt helper equal, no hand drift noted, Pt able to feel light touch to legs, able to flex foot. EKG obtained. Pt ambulated to BR with steady gait.
[2022-11-10] MEDS: LORazepam 2 MG/ML VIAL 1 MG IVPUSH (03:50)
[2022-11-10 03:52] LABS: PLT CLUMP 1; SCAN SMEAR FLAG 1
[2022-11-10 03:54] LABS: Basophils Percent Auto 0.4 % (0-2); Eosinophils Absolute Auto 0.1 X10*3/uL (0.0-0.4); Eosinophils Percent Auto 2.2 % (0-4); Hematocrit 35.3 % (37.0-47.0); Hemoglobin 11.6 g/dl (12.0-16.0); Imm Gran Abs Auto 0.01 X10*3/uL (0.00-0.03); Imm Gran Pct Auto 0.2 % (0.0-0.4); Lymphocytes Percent Auto 20.4 % (20-40); Mean Corpuscular HGB Conc 32.9 g/dl (31.0-35.0); Mean Corpuscular Hemoglobin 30.8 pg (27.0-33.0); Mean Corpuscular Volume 93.6 fL (80.0-98.0); Mean Platelet Volume 11.5 fL (9.4-12.3); Monocytes Absolute Auto 0.3 X10*3/uL (0.1-1.2); Monocytes Percent Auto 6.3 % (2-11); Neutrophils Absolute Auto 3.6 x10*3/uL (2.0-8.3); Neutrophils Percent Auto 70.5 % (45-73); Red Blood Count 3.77 X10*6/uL (4.20-5.50); Red Cell Distribution Width 13.9 % (11.0-16.0)
[2022-11-10 03:55] LABS: MANUAL DIFF FLAG NO; Platelet Count 133 X10*3/uL (160-400); White Blood Count 5.1 X10*3/uL (4.8-10.8)
[2022-11-10 03:58] VITALS: BP 158/99; PULSE 100; RESP 24; TEMP 36.6; O2SAT 99
[2022-11-10 04:06] LABS: COVID-19 Test Negative (Negative); IDNOW Serial# 16C4AD1C; IDNOW Serial# BCCEAD1C; Influenza A Negative (Negative); Influenza B2 Negative (Negative)
[2022-11-10 04:15] LABS: Alanine Aminotransferase 16 U/L (0-31); Albumin Level 4.4 g/dL (3.5-5.0); Alkaline Phosphatase 109 U/L (39-117); Anion Gap 15 (12-20); Aspartate Amino Transferase 26 U/L (5-31); Bilirubin Total 0.4 mg/dL (0.0-1.0); Blood Urea Nitrogen 35 mg/dL (9-16); Calcium 9.7 mg/dL (8.4-10.2); Carbon Dioxide 29 mmol/L (22-29); Chloride 101 mmol/L (96-108); Creatinine Clr Calc Pharmacy 47.5; Estimated Glomerular Filt Rate 54; Glucose Random 109 mg/dL (60-115); Magnesium 2.1 mg/dL (1.6-2.6); Sodium 140 mmol/L (135-145); Total Protein 7.4 g/dL (6.5-8.0)
[2022-11-10 05:00] VITALS: BP 127/83; PULSE 93; RESP 13; TEMP 36.6; O2SAT 98
== END 2022-11-10 05:25 | disposition home or self-care (01) ==
PROVIDERS: Emergency Provider Internal Medicine; PCP Physician Assistant
DX: M79.10 Myalgia, unspecified site (principal); F41.1 Generalized anxiety disorder; F43.0 Acute stress reaction; R94.31 Abnormal electrocardiogram [ECG] [EKG]; Z20.822 Contact with and (suspected) exposure to COVID-19; Z20.828 Contact with and (suspected) exposure to other viral communicable diseases; Z79.899 Other long term (current) drug therapy
CPT/HCPCS: 80053; 82550; 83735; 85025; 87502; 87635; 93005; 96374; 99284; J2060

== ENCOUNTER 2022-11-12 15:22 | Outpatient (REF) | payer MEDICARE, OTHER, SELFPAY | END 2022-11-12 15:23 | disposition home or self-care (01) | LOC: HO.LNP 15:22 | PROVIDERS: Visit Provider Physician Assistant Medical | DX: K13.79 Other lesions of oral mucosa (principal); B97.89 Other viral agents as the cause of diseases classified elsewhere | CPT/HCPCS: 87255 ==

== ENCOUNTER 2022-11-27 09:07 | Emergency (ER) | payer MEDICARE, OTHER, SELFPAY ==
--- NOTE | ~2022-11-27 | CT_ITS ---
EXAMINATION: CT ABDOMEN AND PELVIS WITHOUT CONTRAST CLINICAL INFORMATION: Mid abdominal pain. COMPARISON: CT GI bleed 07/24/2022 TECHNIQUE: Multidetector volumetric imaging was performed from the superior aspect of the liver through the pubic symphysis. Sagittal and coronal reformatted images were obtained on the technologist's workstation. This CT examination was performed using dose optimization techniques as appropriate, variously including the following: *Automated exposure control *Adjustment of mA and/or kV according to patient size (this includes techniques or standardized protocols for targeted exams where dose is matched to indication/reason for exam; i.e. extremities or head) *Use of iterative reconstruction technique DLP: 635 mGy-cm FINDINGS: LUNG BASES: There is hyperinflated lungs with minimal linear atelectatic changes in left lung base. Heart size is normal. LIVER, GALLBLADDER, AND BILIARY TREE: The liver is normal in size, shape, and attenuation. There is a 1.5 cm hypodensity right hepatic lobe, stable. The gallbladder is unremarkable with no evidence of radiopaque gallstones, gallbladder wall thickening, or obvious pericholecystic inflammatory changes. PANCREAS: Unremarkable. SPLEEN: Unremarkable. ADRENAL GLANDS: Unremarkable. KIDNEYS AND URETERS: The kidneys are normal in size, shape, and attenuation. There is a 3 mm radiopaque calculi mid pole calyx left kidney without caliectasis. No additional radiopaque calculi seen. There is no hydroureteronephrosis.. BLADDER: Unremarkable. GASTROINTESTINAL TRACT: There is scattered stool, diverticula and gas seen throughout the colon without distention. The small bowel loops are normal caliber. Appendix is not distended. ABDOMINAL WALL: The abdominal wall appears unremarkable without hernia. LYMPH NODES: Normal. VASCULAR: There is mild dilatation of mid abdominal aorta measuring 3 cm in AP and 3.2 cm wide. PELVIC VISCERA: There is no adnexal mass. No free fluid. OSSEOUS STRUCTURES: There is slight exaggerated lumbar lordosis. The vertebral heights, alignment and disc heights are normal. There is L4 superior endplate Schmorl's node. No aggressive lytic or sclerotic process seen. CT/CT abdomen pelvis wo IV con IMPRESSION: 1. No acute intra-abdominal process seen. 2. Mild constipation. Colonic diverticulosis without diverticulitis. 3. Nonobstructive radiopaque calculi mid pole calyx left kidney. 4. Hepatic cyst. 5. Mid abdominal aortic aneurysm. Fleischner guidelines were followed.
[2022-11-27 09:30] VITALS: PULSE 100; RESP 19; TEMP 37; O2SAT 97; BMI 29.0
[2022-11-27 11:01] LABS: MANUAL DIFF FLAG NO
[2022-11-27 11:05] LABS: Appearance Urine Clear; Color Urine Yellow; Glucose Urine UA Negative (Negative); Leukocyte Esterase Urine Negative (Negative); Nitrite Urine Negative (Negative); PH 5.5 (5.0-9.0); Urine Blood Negative (Negative); Urine Ketones Negative (Negative); Urine Protein Negative (Neg-Trace)
[2022-11-27 11:13] LABS: Basophils Percent Auto 0.7 % (0-2); Eosinophils Absolute Auto 0.1 X10*3/uL (0.0-0.4); Eosinophils Percent Auto 1.9 % (0-4); Hematocrit 35.7 % (37.0-47.0); Hemoglobin 11.7 g/dl (12.0-16.0); Imm Gran Abs Auto 0.02 X10*3/uL (0.00-0.03); Imm Gran Pct Auto 0.5 % (0.0-0.4); Lymphocytes Absolute Auto 0.7 X10*3/uL (1.2-4.9); Mean Corpuscular HGB Conc 32.8 g/dl (31.0-35.0); Mean Corpuscular Hemoglobin 30.9 pg (27.0-33.0); Mean Corpuscular Volume 94.2 fL (80.0-98.0); Mean Platelet Volume 11.6 fL (9.4-12.3); Monocytes Absolute Auto 0.3 X10*3/uL (0.1-1.2); Monocytes Percent Auto 6.3 % (2-11); Neutrophils Absolute Auto 3.2 x10*3/uL (2.0-8.3); Neutrophils Percent Auto 74.6 % (45-73); Platelet Count 111 X10*3/uL (160-400); Red Blood Count 3.79 X10*6/uL (4.20-5.50); Red Cell Distribution Width 13.4 % (11.0-16.0); White Blood Count 4.3 X10*3/uL (4.8-10.8)
[2022-11-27 11:25] LABS: Alanine Aminotransferase 16 U/L (0-31); Albumin Level 4.2 g/dL (3.5-5.0); Alkaline Phosphatase 92 U/L (39-117); Anion Gap 11 (12-20); Aspartate Amino Transferase 20 U/L (5-31); Bilirubin Direct 0.2 mg/dL (0.0-0.5); Bilirubin Total 0.9 mg/dL (0.0-1.0); Blood Urea Nitrogen 19 mg/dL (9-16); Calcium 9.6 mg/dL (8.4-10.2); Carbon Dioxide 30 mmol/L (22-29); Chloride 103 mmol/L (96-108); Creatinine Clr Calc Pharmacy 55.6; Estimated Glomerular Filt Rate > 60; Glucose Random 102 mg/dL (60-115); Lipase 19 U/L (8-78); Potassium 5.1 mmol/L (3.3-5.1); Sodium 139 mmol/L (135-145)
[2022-11-27 12:59] VITALS: BP 162/101; PULSE 91; RESP 16; O2SAT 98
--- NOTE | 2022-11-27 13:00 | ED_ITS ---
HPI - Abdominal Pain General Chief Complaint: Abdominal Pain Stated Complaint: Abd pain Time Seen by Provider: 11/27/22 12:41 Source: patient Mode of arrival: ambulatory Limitations: no limitations History of Present Illness HPI narrative: 82-year-old female came in for evaluation of abdominal pain. Abdominal pain started this morning after she woke up from sleep pain is localized to the mid abdomen with no radiation, pain was associated with 1 time vomiting, day before patient noticed a dark stool bowel movement with normal consistency, no fever, no chills. No dysuria, no frequency urination, no blood in the urine. Patient had multiple ED visits for abdominal pain, patient with history of severe anxiety primary doctor just start her on Celexa to help her symptoms. Related Data Home Medications Medication Instructions Recorded Confirmed acetaminophen 325 mg tablet 325 mg PO QID PRN Pain 06/21/21 11/23/22 Previous Rx's Medication Instructions Recorded alprazolam 0.25 mg tablet 0.25 mg PO TID PRN anxiety 30 days 04/11/22 #90 tabs cholecalciferol (vitamin D3) 50 50 mcg PO DAILY #90 tabs 04/13/22 mcg (2,000 unit) tablet valsartan 80 mg tablet 80 mg PO BID #180 tabs 07/12/22 famotidine 20 mg tablet 20 mg PO BID PRN heartburn 30 days 09/21/22 #60 tabs ondansetron 4 mg disintegrating 4 mg PO Q8-12H PRN nausea and 11/04/22 tablet vomiting #14 tabs dicyclomine 10 mg capsule 10 mg PO Q6H PRN cramps 10 days 11/09/22 #40 caps Allergies Allergy/AdvReac Type Severity Reaction Status Date / Time buspirone Allergy Intermediate Rash Verified 11/27/22 09:32 Sulfa (Sulfonamide Allergy Intermediate RASH Verified 11/27/22 09:32 Antibiotics) amoxicillin [From AUGMENTIN] Allergy Unknown PER H&P Verified 11/27/22 09:32 clavulanic acid Allergy Unknown PER H&P Verified 11/27/22 09:32 [From AUGMENTIN] garlic [GARLIC] Allergy Unknown PER H&P Verified 11/27/22 09:32 metronidazole [From FLAGYL] Allergy Unknown OCULAR Verified 11/27/22 09:32 MIGRAINES penicillamine Allergy Unknown Unknown Verified 11/27/22 09:32 ciprofloxacin AdvReac Intermediate neuropathic Verified 11/27/22 09:32 pain lisinopril AdvReac Intermediate Cough Verified 11/27/22 09:32 nitrofurantoin AdvReac Mild GI side Verified 11/27/22 09:32 effects environmental Allergy Unknown Unknown Uncoded 11/27/22 09:32 flagyl Allergy Unknown Unknown Uncoded 11/27/22 09:32 From KEFLEX Allergy Unknown RASH Uncoded 11/27/22 09:32 Metoprolol Tartrate Allergy Unknown Unknown Uncoded 11/27/22 09:32 Sulfacet-R Allergy Unknown Unknown Uncoded 11/27/22 09:32 Review of Systems Review of Systems All other systems are reviewed and are negative Constitutional: Reports as per HPI and Reports no additional constitutional complaints Eyes: Reports as per HPI and Reports no additional eye complaints Reports system reviewed and no additional complaints, except as documented Cardiovascular: Reports as per HPI and Reports no additional cardiovascular complaints Respiratory: Reports as per HPI and Reports no additional respiratory complaints Gastrointestinal: Reports as per HPI and Reports no additional gastrointestinal complaints Genitourinary: Reports no additional female genitourinary complaints Musculoskeletal: Reports no additional musculoskeletal complaints Skin/Breast: Reports system reviewed and no additional complaints, except as docu Psychiatric: Reports no additional psychiatric complaints Endocrine: Reports no additional endocrine complaints Hematologic/Lymphatic: Reports no additional hematologic/lymphatic complaints Allergic/Immunologic: Reports no additional allergic/immunologic complaints Reports system reviewed and no additional complaints, except as documented and Reports Abnormal speech present [facility] Past Medical History Medical History Anxiety Diverticulitis Heart murmur Irritable bowel Surgical History History of appendectomy History of tonsillectomy Family History Family History Father No problems noted. Mother No problems noted. Social History Social History Household Members: Children Housing: House Are you a primary long term care social worker to a significant other at home: No Do you presently have visiting nurse or other home services: No Alcohol intake: never Patient Tobacco Use Status: Former Tobacco user Smoked in Last 30 Days: No e-Cigarette/Vaping Use: Never Used Second Hand Smoke Exposure: No Use of substances other than those prescribed or required for medical reasons: No Advance Directives: No Advance Directives Information Provided: Yes service: No Current occupational status: retired Cognitive needs: No Hearing needs: No Vision needs: Yes (glasses) Physical Exam ED Vital Signs: Vital Signs - 24 hr 11/27/22 09:30 11/27/22 12:59 Temperature 98.6 F Pulse Rate 100 91 Respiratory Rate 19 16 Blood Pressure 162/101 H Pulse Oximetry 97 98 Oxygen Delivery Method Room Air Room Air BMI result Body Mass Index 29.0 Vital signs have been reviewed as appeared to be correct. Blood pressure n ormal. Heart rate normal. Respiration rate normal. Temperature normal. Oxygen saturation normal. Appearance: Alert. Oriented X3. No acute distress. Head: Normal external exam. Normocephalic. Atraumatic. No Calvert signs noted. No raccoon eyes noted Eyes: PERRLA. EOMI. Conjunctiva and sclera normal. Eyelids normal. ENT: TM's Normal. Pharynx normal. Uvula midline. Moist mucous membranes. No trismus noted. No drooling noted. No muffled voice noted. Neck: Normal inspection. Neck supple. FROM. No adenopathy. Thyroid Normal. No meningeal signs. No neck mass noted. CVS: Normal heart rate and rhythm. Heart sound normal. No murmurs noted. Pulses normal throughout. Respiratory: No respiratory distress. Painless inspiration. Breath sounds normal. No wheezes/rales/rhonchi noted. Chest nontender. No accessory muscle usage noted or decreased air movement noted. Abdomen: Soft and nontender. Bowel sounds normal in all 4 quadrants. No distention noted. No organomegaly noted. No visible injury noted. Rectal exam: Brown stool with trace positive for blood. Back: No CVA tenderness. Full range of motion noted. Skin: Skin warm and dry. Normal skin color. Normal skin turgor. No rashes/lesions/lacerations noted. Extremities: No lower extremity edema. Extremities exhibit normal range of motion. Extremities nontender. Neuro: Oriented X 3. Cranial nerve exam: II-XII are grossly intact No motor deficit. No sensory deficit. Reflexes normal. Course Course Course Narrative: 82-year-old female with history of anxiety came in for evaluation of abdominal pain. Patient is well known to our ED staff for anxiety patient was recently started on Celexa came in for abdominal pain that is resolved now CT of the abdomen pelvis showed no acute pathology in the abdomen, patient was chronic trace blood in the stool patient was instructed to discuss with Dr. holliday to consider endoscopy. Patient is hemodynamically stable will discharge to follow-up with Jaylan GODINEZ. Medical Decision Making Differential Diagnosis Differential Diagnoses: The differential diagnosis associated with the presentation includes (Diverticular disease, colitis, tumor, anemia, electrolyte disturbance, dehydration, anxiety.) Lab Data MDM Lab Attestation statement: I reviewed the patient's lab results. 11/27/22 10:55 11/27/22 10:55 Labs: Lab Results 11/27/22 11/27/22 11/27/22 Range/Units 10:55 10:55 10:55 WBC 4.3 L (4.8-10.8) X10*3/uL RBC 3.79 L (4.20-5.50) X10*6/uL Hgb 11.7 L (12.0-16.0) g/dl Hct 35.7 L (37.0-47.0) % MCV 94.2 (80.0-98.0) fL MCH 30.9 (27.0-33.0) pg MCHC 32.8 (31.0-35.0) g/dl RDW 13.4 (11.0-16.0) % Plt Count 111 L (160-400) X10*3/uL MPV 11.6 (9.4-12.3) fL Immature Gran % (Auto) 0.5 H (0.0-0.4) % Neut % (Auto) 74.6 H (45-73) % Lymph % (Auto) 16.0 L (20-40) % [place] % (Auto) 6.3 (2-11) % Eos % (Auto) 1.9 (0-4) % Baso % (Auto) 0.7 (0-2) % Lymph # (Auto) 0.7 L (1.2-4.9) X10*3/uL [place] # (Auto) 0.3 (0.1-1.2) X10*3/uL Eos # (Auto) 0.1 (0.0-0.4) X10*3/uL Baso # (Auto) 0.0 (0.0-0.2) X10*3/uL Abs Immat Gran (auto) 0.02 (0.00-0.03) X10*3/uL Absolute Neuts (auto) 3.2 (2.0-8.3) x10*3/uL Absolute Nucleated RBC 0.000 (0.0-0.012) X10*3/uL Nucleated RBC % (auto) 0.0 (0.0-0.2) /100WBC Sodium 139 (135-145) mmol/L Potassium 5.1 (3.3-5.1) mmol/L Chloride 103 (96-108) mmol/L Carbon Dioxide 30 H (22-29) mmol/L Anion Gap 11 L (12-20) BUN 19 H (9-16) mg/dL Creatinine 0.84 (0.5-1.4) mg/dL Estim Creat Clear Calc 55.6 Estimated GFR > 60 Random Glucose 102 (60-115) mg/dL Calcium 9.6 (8.4-10.2) mg/dL Total Bilirubin 0.9 (0.0-1.0) mg/dL Direct Bilirubin 0.2 (0.0-0.5) mg/dL AST 20 (5-31) U/L ALT 16 (0-31) U/L Alkaline Phosphatase 92 (39-117) U/L Total Protein 7.0 (6.5-8.0) g/dL Albumin 4.2 (3.5-5.0) g/dL Lipase 19 (8-78) U/L Urine Color Yellow Urine Appearance Clear Urine pH 5.5 (5.0-9.0) Ur Specific [place] 1.020 (1.005-1.025) Urine Protein Negative (Neg-Trace) mg/dL Urine Glucose (UA) Negative (Negative) mg/dL Urine Ketones Negative (Negative) mg/dL Urine Blood Negative (Negative) Urine Nitrite Negative (Negative) Ur Leukocyte Esterase Negative (Negative) Stool Occult Blood (NEGATIVE) 11/27/22 Range/Units 12:55 WBC (4.8-10.8) X10*3/uL RBC (4.20-5.50) X10*6/uL Hgb (12.0-16.0) g/dl Hct (37.0-47.0) % MCV (80.0-98.0) fL MCH (27.0-33.0) pg MCHC (31.0-35.0) g/dl RDW (11.0-16.0) % Plt Count (160-400) X10*3/uL MPV (9.4-12.3) fL Immature Gran % (Auto) (0.0-0.4) % Neut % (Auto) (45-73) % Lymph % (Auto) (20-40) % [place] % (Auto) (2-11) % Eos % (Auto) (0-4) % Baso % (Auto) (0-2) % Lymph # (Auto) (1.2-4.9) X10*3/uL [place] # (Auto) (0.1-1.2) X10*3/uL Eos # (Auto) (0.0-0.4) X10*3/uL Baso # (Auto) (0.0-0.2) X10*3/uL Abs Immat Gran (auto) (0.00-0.03) X10*3/uL Absolute Neuts (auto) (2.0-8.3) x10*3/uL Absolute Nucleated RBC (0.0-0.012) X10*3/uL Nucleated RBC % (auto) (0.0-0.2) /100WBC Sodium (135-145) mmol/L Potassium (3.3-5.1) mmol/L Chloride (96-108) mmol/L Carbon Dioxide (22-29) mmol/L Anion Gap (12-20) BUN (9-16) mg/dL Creatinine (0.5-1.4) mg/dL Estim Creat Clear Calc Estimated GFR Random Glucose (60-115) mg/dL Calcium (8.4-10.2) mg/dL Total Bilirubin (0.0-1.0) mg/dL Direct Bilirubin (0.0-0.5) mg/dL AST (5-31) U/L ALT (0-31) U/L Alkaline Phosphatase (39-117) U/L Total Protein (6.5-8.0) g/dL Albumin (3.5-5.0) g/dL Lipase (8-78) U/L Urine Color Urine Appearance Urine pH (5.0-9.0) Ur Specific [place] (1.005-1.025) Urine Protein (Neg-Trace) mg/dL Urine Glucose (UA) (Negative) mg/dL Urine Ketones (Negative) mg/dL Urine Blood (Negative) Urine Nitrite (Negative) Ur Leukocyte Esterase (Negative) Stool Occult Blood POSITIVE (NEGATIVE) Independent Interpretation I performed an independent interpretation of an: CT Scan (Abdomen and pelvis: No acute intra-abdominal pathology.) Radiology Impression Discussion of test interpretation with radiology: I have reviewed the radiologist's reading. Discharge Plan Discharge Clinical Impression: Anxiety, Abdominal pain Patient Disposition: Home, Self-Care Instructions: Abdominal Pain (ED) Prescriptions: No Action alprazolam 0.25 mg tablet 0.25 mg PO TID PRN (Reason: anxiety) 30 Days Qty: 90 1RF cholecalciferol (vitamin D3) 50 mcg (2,000 unit) tablet 50 mcg PO DAILY Qty: 90 0RF valsartan 80 mg tablet 80 mg PO BID Qty: 180 2RF Rx Instructions: New Dose famotidine 20 mg tablet 20 mg PO BID PRN (Reason: heartburn) 30 Days Qty: 60 1RF acetaminophen 325 mg Tablet 325 mg PO QID PRN (Reason: Pain) dicyclomine 10 mg capsule 10 mg PO Q6H PRN (Reason: cramps) 10 Days Qty: 40 0RF ondansetron 4 mg tablet,disintegrating 4 mg PO Q8-12H PRN (Reason: nausea and vomiting) Qty: 14 0RF Referrals: Nick Gomez PA-C [Primary Care Provider] - Anatoliy Escobar [Physician] -
[2022-11-27 13:07] LABS: OBS Int Ctl Valid YES; OBS1 POSITIVE (NEGATIVE)
--- NOTE | 2022-11-27 14:18 | PC.NURSE ---
pt is alert/oriented. reports epigastric pain x 2 days with dark stool (denies black stool but reports dark brown ) and nausea. Skin pwd. Denies urinary sx. No guarding or grimace. Speaking full sentences. Awaiting dispo
--- NOTE | 2022-11-27 15:13 | PC.NURSE ---
Verified with MD patient can eat provided patient with sahil gume and crackers will CTM
[2022-11-27 15:41] VITALS: BP 140/79; PULSE 97; RESP 16; TEMP 36.8; O2SAT 98
--- NOTE | 2022-11-27 15:42 | MHC.EDTECH ---
this pct assumed care of pt at 1500 ,vitals sign taken ,pt waiting for discharged paper work .
== END 2022-11-27 15:49 | disposition home or self-care (01) ==
PROVIDERS: Emergency Provider Emergency Medicine; PCP Physician Assistant
DX: R10.9 Unspecified abdominal pain (principal); F41.1 Generalized anxiety disorder; F43.0 Acute stress reaction; Z79.899 Other long term (current) drug therapy
CPT/HCPCS: 36415; 74176; 80048; 80076; 81003; 82272; 83690; 85025; 99284

== ENCOUNTER 2022-12-01 09:31 | Emergency (ER) | payer MEDICARE, OTHER, SELFPAY ==
[2022-12-01 09:38] VITALS: BP 128/82; PULSE 91; RESP 17; TEMP 36.4; O2SAT 94; BMI 29.2
[2022-12-01 09:55] LABS: MANUAL DIFF FLAG NO
[2022-12-01 09:58] LABS: Basophils Percent Auto 0.5 % (0-2); Eosinophils Absolute Auto 0.1 X10*3/uL (0.0-0.4); Eosinophils Percent Auto 2.5 % (0-4); Hematocrit 36.8 % (37.0-47.0); Hemoglobin 12.1 g/dl (12.0-16.0); Imm Gran Abs Auto 0.01 X10*3/uL (0.00-0.03); Imm Gran Pct Auto 0.2 % (0.0-0.4); Lymphocytes Absolute Auto 0.6 X10*3/uL (1.2-4.9); Lymphocytes Percent Auto 15.2 % (20-40); Mean Corpuscular HGB Conc 32.9 g/dl (31.0-35.0); Mean Corpuscular Hemoglobin 30.8 pg (27.0-33.0); Mean Corpuscular Volume 93.6 fL (80.0-98.0); Mean Platelet Volume 11.4 fL (9.4-12.3); Monocytes Absolute Auto 0.2 X10*3/uL (0.1-1.2); Monocytes Percent Auto 5.6 % (2-11); Neutrophils Absolute Auto 3.1 x10*3/uL (2.0-8.3); Platelet Count 125 X10*3/uL (160-400); Red Blood Count 3.93 X10*6/uL (4.20-5.50); Red Cell Distribution Width 13.4 % (11.0-16.0); White Blood Count 4.1 X10*3/uL (4.8-10.8)
--- NOTE | 2022-12-01 10:12 | ED.GENADULT ---
HPI - General Adult General Chief complaint: Abdominal Pain Stated complaint: abd pain Time Seen by Provider: 12/01/22 10:11 Source: patient Mode of arrival: ambulatory Limitations: no limitations History of Present Illness HPI narrative: Patient is an 82 year old assigned female at with a history of diverticulitis, IBS, HTN, and anxiety presenting to the emergency department today with continued abdominal pain. Patient states that she was seen here 4 days ago for the same issue and it has not improved. Patient states that it has not gotten worse, it just has not gotten better. Patient states that she called Dr. Escobar' office multiple times and says she has an appointment with him next week. Patient denies any dizziness, lightheadedness, fever, chills, blurry vision, double vision, loss of vision, chest pain, difficulty breathing, shortness of breath, back pain, night sweats, pain with urination, increased urinary frequency, increased urinary urgency, blood in her urine or stool, syncope or a near syncopal episode, recent trauma or falls, bowel incontinence, bladder incontinence, bowel retention, bladder retention, or any other complaints at this time. Patient states that she has passed gas that has smelled like poop. Onset (ago): day(s) (6) Location: abdomen Radiation: non-radiation Severity: mild Severity scale (1-10): 3 Quality: aching and dull Pain Consistency: constant Relieving factors: none Exacerbating factors: none Treatments prior to arrival: none Related Data Home Medications Medication Instructions Recorded Confirmed acetaminophen 325 mg tablet 325 mg PO QID PRN Pain 06/21/21 11/23/22 Previous Rx's Medication Instructions Recorded alprazolam 0.25 mg tablet 0.25 mg PO TID PRN anxiety 30 days 04/11/22 #90 tabs cholecalciferol (vitamin D3) 50 50 mcg PO DAILY #90 tabs 04/13/22 mcg (2,000 unit) tablet valsartan 80 mg tablet 80 mg PO BID #180 tabs 07/12/22 famotidine 20 mg tablet 20 mg PO BID PRN heartburn 30 days 09/21/22 #60 tabs ondansetron 4 mg disintegrating 4 mg PO Q8-12H PRN nausea and 11/04/22 tablet vomiting #14 tabs dicyclomine 10 mg capsule 10 mg PO Q6H PRN cramps 10 days 11/09/22 #40 caps Allergies Allergy/AdvReac Type Severity Reaction Status Date / Time buspirone Allergy Intermediate Rash Verified 11/27/22 09:32 Sulfa (Sulfonamide Allergy Intermediate RASH Verified 11/27/22 09:32 Antibiotics) amoxicillin [From AUGMENTIN] Allergy Unknown PER H&P Verified 11/27/22 09:32 clavulanic acid Allergy Unknown PER H&P Verified 11/27/22 09:32 [From AUGMENTIN] garlic [GARLIC] Allergy Unknown PER H&P Verified 11/27/22 09:32 metronidazole [From FLAGYL] Allergy Unknown OCULAR Verified 11/27/22 09:32 MIGRAINES penicillamine Allergy Unknown Unknown Verified 11/27/22 09:32 ciprofloxacin AdvReac Intermediate neuropathic Verified 11/27/22 09:32 pain lisinopril AdvReac Intermediate Cough Verified 11/27/22 09:32 nitrofurantoin AdvReac Mild GI side Verified 11/27/22 09:32 effects environmental Allergy Unknown Unknown Uncoded 11/27/22 09:32 flagyl Allergy Unknown Unknown Uncoded 11/27/22 09:32 From KEFLEX Allergy Unknown RASH Uncoded 11/27/22 09:32 Metoprolol Tartrate Allergy Unknown Unknown Uncoded 11/27/22 09:32 Sulfacet-R Allergy Unknown Unknown Uncoded 11/27/22 09:32 Review of Systems Constitutional: Constitutional: Reports no additional constitutional complaints, Denies chills, Denies fever(s) and Denies night sweats Eyes: Eyes: Reports no additional eye complaints, Denies blurry vision, Denies change in vision, Denies diplopia, Denies eye discharge, Denies loss of vision and Denies eye pain ENT: Denies dizziness Cardiovascular: Cardiovascular: Reports no additional cardiovascular complaints, Denies chest pain, Denies lightheadedness, Denies Loss of Consciousness and Denies dyspnea Respiratory: Respiratory: Reports no additional respiratory complaints and Denies dyspnea Gastrointestinal: Gastrointestinal: Reports no additional gastrointestinal complaints, Reports abdominal pain, Denies melena, Denies hematochezia, Denies change in bowel habits and Denies change in stool character Genitourinary: Genitourinary: Denies hematuria, Denies urinary frequency, Denies dysuria, Denies urinary incontinence, Denies urinary hesitancy and Denies urinary urgency Musculoskeletal: Musculoskeletal: Reports no additional musculoskeletal complaints, Denies numbness and Denies tingling Neurologic: Denies dizziness, Denies loss of vision, Denies numbness and Denies tingling Psychiatric: Psychiatric: Reports no additional psychiatric complaints and Reports anxiety Endocrine: Endocrine: Reports no additional endocrine complaints Hematologic/Lymphatic: Hematologic/Lymphatic: Reports no additional hematologic/lymphatic complaints Allergic/Immunologic: Allergic/Immunologic: Reports no additional allergic/immunologic complaints PMFSH Past Medical History Attestation statement: The following information was validated with the patient. Source: old records reviewed and nursing notes reviewed Medical History Anxiety Diverticulitis Heart murmur Irritable bowel Surgical History History of appendectomy History of tonsillectomy Family History Family History Father No problems noted. Mother No problems noted. Social History Social History Household Members: Children Housing: House Are you a primary congregational care pastor to a significant other at home: No Do you presently have visiting nurse or other home services: No Alcohol intake: unknown Patient Tobacco Use Status: Former Tobacco user Smoked in Last 30 Days: No e-Cigarette/Vaping Use: Never Used Second Hand Smoke Exposure: No Advance Directives: Yes Advance Directives on File: Yes Advance Directives Date on File: 11/21/22 service: No Current occupational status: retired Cognitive needs: No Hearing needs: No Vision needs: Yes (glasses) Physical Exam ED Vital Signs: Vital Signs - 24 hr 12/01/22 09:38 12/01/22 11:57 Temperature 97.6 F Pulse Rate 91 86 Respiratory Rate 17 18 Blood Pressure 128/82 149/80 H Pulse Oximetry 94 98 Oxygen Delivery Method Room Air Room Air BMI result Body Mass Index 29.2 Const General: cooperative, no acute distress, alert and awake Nutritional Appearance: well nourished Orientation/consciousness: patient oriented x3 Limitations: no limitations HENMT Head: Yes normal to inspection and Yes atraumatic Ears: hearing grossly normal bilaterally and external ears normal General nose exam: Normal external nose present, no nasal discharge noted and no epistaxis Face and sinus: Yes normal facial exam, No abrasion and No laceration Mouth: Normal oral and palatal mucosa present, no drooling and no muffled voice Eyes General: appearance normal, both eyes and all related structures Periorbital: periorbital findings normal Eyelids: Yes eyelids normal Conjunctivae: conjunctivae normal Pupils: Equal, round and reactive pupils present EOM: EOMs intact bilaterally Neck Neck: Yes normal visual inspection, Yes full ROM and Yes no lymphadenopathy Chest Chest palpation & inspection: normal inspection of the chest Resp Effort & Inspection: normal respiratory effort and able to speak in complete sentences Auscultation: clear to auscultation bilaterally Cardio Rate: regular rate Rhythm: regular rhythm GI Inspection: Yes normal to inspection Palpation (GI): Soft to palpation, not firm, nontender and no guarding Neuro General: patient oriented x3 and moves all extremities Cranial nerves: Yes Equal, round and reactive pupils present Cognition (Neuro): normal cognition Motor exam (neuro): 5/5 motor strength present throughout Sensory Exam: Normal double simultaneous stimulation for sensation Coordination: [id number] test normal Extrem General: Yes normal to inspection, Yes full ROM and Yes capillary refill normal Psych Appearance: grossly normal Mental Status: mental status grossly normal Affect: normal affect Attitude: cooperative Thought process: Normal thought process present Thought content: Normal thought content present Insight: Good insight present (Psych) Medical Decision Making Medical Decision Making MDM Narrative: Patient is an 82 year old assigned female at with a history of IBS, HTN, diverticulitis, and anxiety presenting to the emergency department today with continued abdominal pain. Patient's physical exam was unremarkable. Patient's blood work was unremarkable. I called and spoke to Dr. Escobar who recommended discharge with the patient continuing her current medication regimen and he states he will follow up with her. I explained my physical exam findings as well as all test results to the patient. I answered all questions asked by the patient. I stressed the importance of the patient taking her medication as prescribed. I stressed the importance of the patient following up with her primary care provider and Dr. Escobar. I stressed the importance of the patient returning to the emergency department immediately if her symptoms were to worsen or if she were to develop any dizziness, shortness of breath, difficulty breathing, chest pain, blurry vision, loss of vision, nausea, vomiting, abdominal pain, fever, chills, back pain, or any other complaints. Patient verbalized agreement and understanding with this treatment plan and discharge. Differential Diagnosis Differential Diagnoses: The differential diagnosis associated with the presentation includes chronic abdominal pain, anxiety Consult Healthcare Provider Management of the patient was discussed with: Municipal Maintenance Worker (spoke to Dr. Escobar as noted in the MDM Section of this chart) Lab Data [facility] Lab Attestation statement: I reviewed the patient's lab results. 12/01/22 09:50 Labs: Lab Results 12/01/22 12/01/22 12/01/22 Range/Units 09:50 09:50 09:51 WBC 4.1 L (4.8-10.8) X10*3/uL RBC 3.93 L (4.20-5.50) X10*6/uL Hgb 12.1 (12.0-16.0) g/dl Hct 36.8 L (37.0-47.0) % MCV 93.6 (80.0-98.0) fL MCH 30.8 (27.0-33.0) pg MCHC 32.9 (31.0-35.0) g/dl RDW 13.4 (11.0-16.0) % Plt Count 125 L (160-400) X10*3/uL MPV 11.4 (9.4-12.3) fL Immature Gran % (Auto) 0.2 (0.0-0.4) % Neut % (Auto) 76.0 H (45-73) % Lymph % (Auto) 15.2 L (20-40) % [place] % (Auto) 5.6 (2-11) % Eos % (Auto) 2.5 (0-4) % Baso % (Auto) 0.5 (0-2) % Lymph # (Auto) 0.6 L (1.2-4.9) X10*3/uL [place] # (Auto) 0.2 (0.1-1.2) X10*3/uL Eos # (Auto) 0.1 (0.0-0.4) X10*3/uL Baso # (Auto) 0.0 (0.0-0.2) X10*3/uL Abs Immat Gran (auto) 0.01 (0.00-0.03) X10*3/uL Absolute Neuts (auto) 3.1 (2.0-8.3) x10*3/uL Absolute Nucleated RBC 0.000 (0.0-0.012) X10*3/uL Nucleated RBC % (auto) 0.0 (0.0-0.2) /100WBC Sodium 140 (135-145) mmol/L Potassium 4.1 (3.3-5.1) mmol/L Chloride 101 (96-108) mmol/L Carbon Dioxide 28 (22-29) mmol/L Anion Gap 15 (12-20) BUN 19 H (9-16) mg/dL Creatinine 1.04 (0.5-1.4) mg/dL Estim Creat Clear Calc 45.1 Estimated GFR 51 Random Glucose 100 (60-115) mg/dL Calcium 9.7 (8.4-10.2) mg/dL Magnesium 2.0 (1.6-2.6) mg/dL Total Bilirubin 1.0 (0.0-1.0) mg/dL Direct Bilirubin 0.3 (0.0-0.5) mg/dL AST 22 (5-31) U/L ALT 17 (0-31) U/L Alkaline Phosphatase 96 (39-117) U/L Total Protein 7.1 (6.5-8.0) g/dL Albumin 4.5 (3.5-5.0) g/dL Lipase 18 (8-78) U/L Urine Color Urine Appearance Urine pH (5.0-9.0) Ur Specific [place] (1.005-1.025) Urine Protein (Neg-Trace) mg/dL Urine Glucose (UA) (Negative) mg/dL Urine Ketones (Negative) mg/dL Urine Blood (Negative) Urine Nitrite (Negative) Ur Leukocyte Esterase (Negative) COVID-19 (MANDI) Negative (Negative) COVID-19 Clin Com See Note 12/01/22 Range/Units 10:22 WBC (4.8-10.8) X10*3/uL RBC (4.20-5.50) X10*6/uL Hgb (12.0-16.0) g/dl Hct (37.0-47.0) % MCV (80.0-98.0) fL MCH (27.0-33.0) pg MCHC (31.0-35.0) g/dl RDW (11.0-16.0) % Plt Count (160-400) X10*3/uL MPV (9.4-12.3) fL Immature Gran % (Auto) (0.0-0.4) % Neut % (Auto) (45-73) % Lymph % (Auto) (20-40) % [place] % (Auto) (2-11) % Eos % (Auto) (0-4) % Baso % (Auto) (0-2) % Lymph # (Auto) (1.2-4.9) X10*3/uL [place] # (Auto) (0.1-1.2) X10*3/uL Eos # (Auto) (0.0-0.4) X10*3/uL Baso # (Auto) (0.0-0.2) X10*3/uL Abs Immat Gran (auto) (0.00-0.03) X10*3/uL Absolute Neuts (auto) (2.0-8.3) x10*3/uL Absolute Nucleated RBC (0.0-0.012) X10*3/uL Nucleated RBC % (auto) (0.0-0.2) /100WBC Sodium (135-145) mmol/L Potassium (3.3-5.1) mmol/L Chloride (96-108) mmol/L Carbon Dioxide (22-29) mmol/L Anion Gap (12-20) BUN (9-16) mg/dL Creatinine (0.5-1.4) mg/dL Estim Creat Clear Calc Estimated GFR Random Glucose (60-115) mg/dL Calcium (8.4-10.2) mg/dL Magnesium (1.6-2.6) mg/dL Total Bilirubin (0.0-1.0) mg/dL Direct Bilirubin (0.0-0.5) mg/dL AST (5-31) U/L ALT (0-31) U/L Alkaline Phosphatase (39-117) U/L Total Protein (6.5-8.0) g/dL Albumin (3.5-5.0) g/dL Lipase (8-78) U/L Urine Color Yellow Urine Appearance Clear Urine pH 5.5 (5.0-9.0) Ur Specific [place] 1.015 (1.005-1.025) Urine Protein Negative (Neg-Trace) mg/dL Urine Glucose (UA) Negative (Negative) mg/dL Urine Ketones Negative (Negative) mg/dL Urine Blood Negative (Negative) Urine Nitrite Negative (Negative) Ur Leukocyte Esterase Negative (Negative) COVID-19 (MANDI) (Negative) COVID-19 Clin Com Discharge Plan Discharge Clinical Impression: Abdominal pain Patient Disposition: Home, Self-Care Instructions: Abdominal Pain (ED) Additional Instructions: Follow up with your primary care provider and a GI specialist. Return to the emergency department immediately if your symptoms worsen or if you develop any dizziness, shortness of breath, difficulty breathing, chest pain, blurry vision, loss of vision, nausea, vomiting, abdominal pain, fever, chills, back pain, or any other complaints. Prescriptions: No Action alprazolam 0.25 mg tablet 0.25 mg PO TID PRN (Reason: anxiety) 30 Days Qty: 90 1RF cholecalciferol (vitamin D3) 50 mcg (2,000 unit) tablet 50 mcg PO DAILY Qty: 90 0RF valsartan 80 mg tablet 80 mg PO BID Qty: 180 2RF Rx Instructions: New Dose famotidine 20 mg tablet 20 mg PO BID PRN (Reason: heartburn) 30 Days Qty: 60 1RF acetaminophen 325 mg Tablet 325 mg PO QID PRN (Reason: Pain) dicyclomine 10 mg capsule 10 mg PO Q6H PRN (Reason: cramps) 10 Days Qty: 40 0RF ondansetron 4 mg tablet,disintegrating 4 mg PO Q8-12H PRN (Reason: nausea and vomiting) Qty: 14 0RF Referrals: Nick Gomez PA-C [Primary Care Provider] - Anatoliy Escobar [Physician] - Interventions: ED Discharge Assessment Last Done: 12/01/22 12:24 Discharge Date/Time: 12/01/22 12:28 Print Language: Lithuanian
[2022-12-01 10:18] LABS: Alanine Aminotransferase 17 U/L (0-31); Albumin Level 4.5 g/dL (3.5-5.0); Alkaline Phosphatase 96 U/L (39-117); Aspartate Amino Transferase 22 U/L (5-31); Bilirubin Direct 0.3 mg/dL (0.0-0.5); Lipase 18 U/L (8-78); Total Protein 7.1 g/dL (6.5-8.0)
--- NOTE | 2022-12-01 10:20 | PC.NURSE ---
Pt reporting she has not had a bowel movement since monday and is reporting smelly gas since poor PO intake
[2022-12-01 10:21] LABS: COVID-19 Test Negative (Negative); IDNOW Serial# BCCEAD1C
[2022-12-01 10:28] LABS: Appearance Urine Clear; Color Urine Yellow; Glucose Urine UA Negative (Negative); Leukocyte Esterase Urine Negative (Negative); Nitrite Urine Negative (Negative); PH 5.5 (5.0-9.0); Specific Gravity - Urine 1.015 (1.005-1.025); Urine Blood Negative (Negative); Urine Ketones Negative (Negative); Urine Protein Negative (Neg-Trace)
[2022-12-01 10:50] LABS: Anion Gap 15 (12-20)
[2022-12-01 10:54] LABS: Blood Urea Nitrogen 19 mg/dL (9-16); Calcium 9.7 mg/dL (8.4-10.2); Carbon Dioxide 28 mmol/L (22-29); Chloride 101 mmol/L (96-108); Creatinine Clr Calc Pharmacy 45.1; Estimated Glomerular Filt Rate 51; Glucose Random 100 mg/dL (60-115); Potassium 4.1 mmol/L (3.3-5.1); Sodium 140 mmol/L (135-145)
[2022-12-01 11:57] VITALS: BP 149/80; PULSE 86; RESP 18; O2SAT 98
== END 2022-12-01 12:28 | disposition home or self-care (01) ==
PROVIDERS: Physician Assistant Medical; Emergency Provider Emergency Medicine; PCP Physician Assistant
DX: R10.9 Unspecified abdominal pain (principal); Z20.822 Contact with and (suspected) exposure to COVID-19; Z20.828 Contact with and (suspected) exposure to other viral communicable diseases; Z87.891 Personal history of nicotine dependence; Z79.899 Other long term (current) drug therapy
CPT/HCPCS: 36415; 80048; 80076; 81003; 83690; 83735; 85025; 87635; 99283; 99284

== ENCOUNTER 2022-12-09 06:24 | Emergency (ER) | payer MEDICARE, OTHER, SELFPAY ==
--- NOTE | 2022-12-09 | ECG_ITS ---
Test Reason : ABDOMINAL PAIN Blood Pressure : / mmHG Vent. Rate : 081 BPM Atrial Rate : 081 BPM P-R Int : 232 ms QRS Dur : 090 ms QT Int : 368 ms P-R-T Axes : 065 022 041 degrees QTc Int : 427 ms Sinus rhythm with 1st degree A-V block Otherwise normal ECG When compared with ECG of 10-NOV-2022 03:19, IL interval has increased Minimal criteria for Inferior infarct are no longer Present Referred By: Generic ED Physician Electronically Signed By:Guillaume Callahan
--- NOTE | ~2022-12-09 | CT_ITS ---
EXAMINATION: CT ABDOMEN AND PELVIS WITH CONTRAST CLINICAL INFORMATION: Left lower quadrant pain and tenderness. COMPARISON: None available. TECHNIQUE: Multidetector volumetric images were obtained from the superior aspect of the liver through the pubic symphysis following administration 85 mL of Omnipaque 350 intravenous contrast. Sagittal and coronal reformatted images were obtained on the technologist's workstation. Oral contrast: No This CT examination was performed using dose optimization techniques as appropriate, variously including the following: *Automated exposure control *Adjustment of mA and/or kV according to patient size (this includes techniques or standardized protocols for targeted exams where dose is matched to indication/reason for exam; i.e. extremities or head) *Use of iterative reconstruction technique DLP: 578 mGy-cm FINDINGS: LUNG BASES: There is minimal dependent bibasilar atelectasis. LIVER, GALLBLADDER, AND BILIARY TREE: The liver is enlarged in size measuring 18 cm, normal shape, and attenuation. There is a 1.2 cm cyst right hepatic lobe. No additional lesions seen. There is no intrahepatic or extrahepatic ductal dilatation. There are no radiopaque gallstones or wall thickening. PANCREAS: Unremarkable. SPLEEN: Unremarkable. ADRENAL GLANDS: Unremarkable. KIDNEYS AND URETERS: The kidneys are normal in size, shape, and attenuation. There is a 5 mm nonobstructive radiopaque calculi upper pole and a 4 mm nonobstructive radiopaque calculi mid to lower pole left kidney. No radiopaque calculi seen in the right kidney. No hydronephrosis except for extrarenal bilateral kidney pelvis. BLADDER: The bladder is nondistended, no bladder wall thickening or radiopaque calculi. GASTROINTESTINAL TRACT: There is large amount of stool and scattered diverticula in colon without any evidence of obstruction or diverticulitis.. There is no free air or free fluid. ABDOMINAL WALL: No significant hernia is appreciated. LYMPH NODES: Normal. VASCULAR: There is atherosclerotic calcification of abdominal aorta with aneurysmal dilatation of mid segment. It measures 2.9 cm in AP and transverse dimension on axial image 29/2 and approximately 4.4 cm in craniocaudad length on sagittal image 66/7. PELVIC VISCERA: Unremarkable. OSSEOUS STRUCTURES: No aggressive lytic or sclerotic process seen. There is mild bilateral L5-S1 and L4-L5 facet joint arthropathy. CT/CT abdomen pelvis w IV con IMPRESSION: 1. Moderate constipation without obstruction. Scattered colonic diverticulosis without diverticulitis. 2. Nonobstructive radiopaque calculi upper and mid pole left kidney. 3. Mild aneurysmal dilatation of mid abdominal aorta. 4. Mild hepatomegaly with small right hepatic lobe cyst. Fleischner guidelines were followed.
[2022-12-09 06:26] VITALS: BP 131/83; PULSE 89; RESP 18; TEMP 36.5; O2SAT 97; BMI 28.5
[2022-12-09 07:44] LABS: MANUAL DIFF FLAG NO
[2022-12-09 07:46] VITALS: BP 131/81; PULSE 74; RESP 17; TEMP 36.6; O2SAT 96
[2022-12-09 07:50] LABS: Appearance Urine Clear; Color Urine Yellow; Glucose Urine UA Negative (Negative); Leukocyte Esterase Urine Trace (Negative); Nitrite Urine Negative (Negative); PH 5.5 (5.0-9.0); UMIC TRIGGER UACC YES; Urine Blood Negative (Negative); Urine Ketones Negative (Negative); Urine Protein Negative (Neg-Trace)
[2022-12-09 07:54] LABS: Bacteria Urine None Seen (None Seen); Hyaline Casts Urine 0-2 /LPF (0-2); RBC Urine 0-2 /HPF (0-2); Squamous Epithelial Cell Urine 0-2 /HPF (0-2); WBC Urine 0-5 /HPF (0-5)
[2022-12-09 07:55] LABS: Basophils Percent Auto 0.3 % (0-2); Eosinophils Absolute Auto 0.1 X10*3/uL (0.0-0.4); Eosinophils Percent Auto 2.9 % (0-4); Hematocrit 32.3 % (37.0-47.0); Hemoglobin 10.8 g/dl (12.0-16.0); Imm Gran Abs Auto 0.01 X10*3/uL (0.00-0.03); Imm Gran Pct Auto 0.3 % (0.0-0.4); Lymphocytes Absolute Auto 0.7 X10*3/uL (1.2-4.9); Lymphocytes Percent Auto 20.6 % (20-40); Mean Corpuscular HGB Conc 33.4 g/dl (31.0-35.0); Mean Corpuscular Hemoglobin 31.4 pg (27.0-33.0); Mean Corpuscular Volume 93.9 fL (80.0-98.0); Mean Platelet Volume 11.3 fL (9.4-12.3); Monocytes Absolute Auto 0.3 X10*3/uL (0.1-1.2); Monocytes Percent Auto 7.7 % (2-11); Neutrophils Absolute Auto 2.4 x10*3/uL (2.0-8.3); Neutrophils Percent Auto 68.2 % (45-73); Platelet Count 105 X10*3/uL (160-400); Red Blood Count 3.44 X10*6/uL (4.20-5.50); Red Cell Distribution Width 13.6 % (11.0-16.0); White Blood Count 3.5 X10*3/uL (4.8-10.8)
[2022-12-09 08:07] LABS: Alanine Aminotransferase 12 U/L (0-31); Albumin Level 4.1 g/dL (3.5-5.0); Alkaline Phosphatase 86 U/L (39-117); Anion Gap 11 (12-20); Aspartate Amino Transferase 18 U/L (5-31); Bilirubin Direct 0.2 mg/dL (0.0-0.5); Bilirubin Total 0.7 mg/dL (0.0-1.0); Blood Urea Nitrogen 18 mg/dL (9-16); Calcium 9.5 mg/dL (8.4-10.2); Carbon Dioxide 31 mmol/L (22-29); Chloride 106 mmol/L (96-108); Estimated Glomerular Filt Rate > 60; Glucose Random 93 mg/dL (60-115); Lipase 22 U/L (8-78); Potassium 4.9 mmol/L (3.3-5.1); Sodium 143 mmol/L (135-145); Total Protein 6.5 g/dL (6.5-8.0)
--- NOTE | 2022-12-09 08:23 | ED.ABDPAIN ---
HPI - Abdominal Pain General Chief Complaint: Abdominal Pain Stated Complaint: Abd pain Time Seen by Provider: 12/09/22 08:01 Source: patient Mode of arrival: ambulatory Limitations: no limitations History of Present Illness HPI narrative: 82 y/o female with history of GERD, diverticulosis, anxiety, history of diverticulitis in 2013, HTN, aortic stenosis, lumbar disc disease, TIA, hydrocephalus, who presents to the ER for evaluation of worsening LLQ pain for the last 1 month. It got acutetly worse the last couple of days. She reports irregular bowels and history of intermittnet constipation. Lasm BM a couple of days ago. No nausea or vomiting. She has severe cramping pains in the LLQ that come and go. MD elicited complaint: abdominal pain Pertinent past history: constipation and diverticulitis Onset (ago): week(s) Related Data Home Medications Medication Instructions Recorded Confirmed acetaminophen 325 mg tablet 325 mg PO QID PRN Pain 06/21/21 11/23/22 Previous Rx's Medication Instructions Recorded alprazolam 0.25 mg tablet 0.25 mg PO TID PRN anxiety 30 days 04/11/22 #90 tabs cholecalciferol (vitamin D3) 50 50 mcg PO DAILY #90 tabs 04/13/22 mcg (2,000 unit) tablet valsartan 80 mg tablet 80 mg PO BID #180 tabs 07/12/22 famotidine 20 mg tablet 20 mg PO BID PRN heartburn 30 days 09/21/22 #60 tabs ondansetron 4 mg disintegrating 4 mg PO Q8-12H PRN nausea and 11/04/22 tablet vomiting #14 tabs dicyclomine 10 mg capsule 10 mg PO Q6H PRN cramps 10 days 11/09/22 #40 caps meclizine 25 mg tablet (Dramamine 25 mg PO BID dizziness 5 days #10 12/06/22 (meclizine)) tabs docusate sodium 100 mg capsule 100 mg PO BID #20 caps 12/09/22 (Colace) polyethylene glycol 3350 17 17 g PO DAILY #238 grams 12/09/22 gram/dose oral powder (ClearLax) sennosides 8.6 mg capsule (senna) 8.6 mg PO BEDTIME #20 caps 12/09/22 Allergies Allergy/AdvReac Type Severity Reaction Status Date / Time buspirone Allergy Intermediate Rash Verified 12/09/22 06:30 Sulfa (Sulfonamide Allergy Intermediate RASH Verified 12/09/22 06:30 Antibiotics) amoxicillin [From AUGMENTIN] Allergy Unknown PER H&P Verified 12/09/22 06:30 clavulanic acid Allergy Unknown PER H&P Verified 12/09/22 06:30 [From AUGMENTIN] garlic [GARLIC] Allergy Unknown PER H&P Verified 12/09/22 06:30 metronidazole [From FLAGYL] Allergy Unknown OCULAR Verified 12/09/22 06:30 MIGRAINES penicillamine Allergy Unknown Unknown Verified 12/09/22 06:30 ciprofloxacin AdvReac Intermediate neuropathic Verified 12/09/22 06:30 pain lisinopril AdvReac Intermediate Cough Verified 12/09/22 06:30 nitrofurantoin AdvReac Mild GI side Verified 12/09/22 06:30 effects environmental Allergy Unknown Unknown Uncoded 11/27/22 09:32 flagyl Allergy Unknown Unknown Uncoded 11/27/22 09:32 From KEFLEX Allergy Unknown RASH Uncoded 11/27/22 09:32 Metoprolol Tartrate Allergy Unknown Unknown Uncoded 11/27/22 09:32 Sulfacet-R Allergy Unknown Unknown Uncoded 11/27/22 09:32 PMF Past Medical History Medical History Anxiety Diverticulitis Heart murmur Irritable bowel Surgical History History of appendectomy History of tonsillectomy Family History Family History Father No problems noted. Mother No problems noted. Social History Social History Household Members: Children Housing: House Are you a primary critical care clinical nurse specialist to a significant other at home: No Do you presently have visiting nurse or other home services: No Alcohol intake: unknown Patient Tobacco Use Status: Former Tobacco user e-Cigarette/Vaping Use: Never Used Second Hand Smoke Exposure: No Advance Directives: Yes Advance Directives on File: Yes Advance Directives Date on File: 11/21/22 service: No Current occupational status: retired Cognitive needs: No Hearing needs: No Vision needs: Yes (glasses) Physical Exam ED Vital Signs: Vital Signs - 24 hr 12/09/22 06:26 12/09/22 07:46 12/09/22 10:00 Temperature 97.7 F 98 F Pulse Rate 89 74 85 Respiratory Rate 18 17 18 Blood Pressure 131/83 131/81 144/93 H Pulse Oximetry 97 96 95 Oxygen Delivery Method Room Air Room Air Room Air BMI result Body Mass Index 28.5 Medical Decision Making Lab Data 12/09/22 07:39 12/09/22 07:39 Labs: Lab Results 12/09/22 12/09/22 12/09/22 Range/Units 07:39 07:39 07:43 WBC 3.5 L (4.8-10.8) X10*3/uL RBC 3.44 L (4.20-5.50) X10*6/uL Hgb 10.8 L (12.0-16.0) g/dl Hct 32.3 L (37.0-47.0) % MCV 93.9 (80.0-98.0) fL MCH 31.4 (27.0-33.0) pg MCHC 33.4 (31.0-35.0) g/dl RDW 13.6 (11.0-16.0) % Plt Count 105 L (160-400) X10*3/uL MPV 11.3 (9.4-12.3) fL Immature Gran % (Auto) 0.3 (0.0-0.4) % Neut % (Auto) 68.2 (45-73) % Lymph % (Auto) 20.6 (20-40) % [place] % (Auto) 7.7 (2-11) % Eos % (Auto) 2.9 (0-4) % Baso % (Auto) 0.3 (0-2) % Lymph # (Auto) 0.7 L (1.2-4.9) X10*3/uL [place] # (Auto) 0.3 (0.1-1.2) X10*3/uL Eos # (Auto) 0.1 (0.0-0.4) X10*3/uL Baso # (Auto) 0.0 (0.0-0.2) X10*3/uL Abs Immat Gran (auto) 0.01 (0.00-0.03) X10*3/uL Absolute Neuts (auto) 2.4 (2.0-8.3) x10*3/uL Absolute Nucleated RBC 0.000 (0.0-0.012) X10*3/uL Nucleated RBC % (auto) 0.0 (0.0-0.2) /100WBC Sodium 143 (135-145) mmol/L Potassium 4.9 (3.3-5.1) mmol/L Chloride 106 (96-108) mmol/L Carbon Dioxide 31 H (22-29) mmol/L Anion Gap 11 L (12-20) BUN 18 H (9-16) mg/dL Creatinine 0.89 (0.5-1.4) mg/dL Estim Creat Clear Calc 52.0 Estimated GFR > 60 Random Glucose 93 (60-115) mg/dL Calcium 9.5 (8.4-10.2) mg/dL Total Bilirubin 0.7 (0.0-1.0) mg/dL Direct Bilirubin 0.2 (0.0-0.5) mg/dL AST 18 (5-31) U/L ALT 12 (0-31) U/L Alkaline Phosphatase 86 (39-117) U/L Total Protein 6.5 (6.5-8.0) g/dL Albumin 4.1 (3.5-5.0) g/dL Lipase 22 (8-78) U/L Urine Color Yellow Urine Appearance Clear Urine pH 5.5 (5.0-9.0) Ur Specific [place] 1.010 (1.005-1.025) Urine Protein Negative (Neg-Trace) mg/dL Urine Glucose (UA) Negative (Negative) mg/dL Urine Ketones Negative (Negative) mg/dL Urine Blood Negative (Negative) Urine Nitrite Negative (Negative) Ur Leukocyte Esterase Trace H (Negative) Urine RBC 0-2 (0-2) /HPF Urine WBC 0-5 (0-5) /HPF Ur Squamous Epith Cells 0-2 (0-2) /HPF Urine Bacteria None Seen (None Seen) Hyaline Casts 0-2 (0-2) /LPF Medications Administered Discontinued Medications Generic Name Dose Route Start Last Admin Trade Name Freq PRN Reason Stop Dose Admin Al Hydroxide/Mg Hydroxide 30 ml 12/09/22 09:51 12/09/22 10:04 Magnesium Hydrox/Alum Hydrox 30 Ml Oral.Susp PO 12/09/22 09:52 30 ml ONCE ONE Administration Iohexol 100 ml 12/09/22 09:02 12/09/22 09:02 Iohexol 350 Mg/Ml 100 Ml Infus..Btl IV 12/09/22 09:03 85 ml ONCE ONE Administration Simethicone 160 mg 12/09/22 09:51 12/09/22 10:04 Simethicone 80 Mg Tab.Chew PO 12/09/22 09:52 160 mg ONCE ONE Administration Discharge Plan Discharge Clinical Impression: Constipation Patient Disposition: Home, Self-Care Instructions: Constipation (DC), High Fiber Diet (ED) Additional Instructions: Your CT scan today showed constipation. Take the prescribed laxatives and stool softeners as prescribed. Recommend using your suppositories at home today and tomorrow. Drink plenty of water and stay hydrated. Follow-up with your doctor as needed. If you develop new or worsening symptoms call 911 or come back to the ER for further evaluation. Prescriptions: New polyethylene glycol 3350 [ClearLax] 17 gram/dose powder 17 g PO DAILY Qty: 238 0RF docusate sodium [Colace] 100 mg capsule 100 mg PO BID Qty: 20 0RF senna 8.6 mg capsule 8.6 mg PO BEDTIME Qty: 20 0RF No Action alprazolam 0.25 mg tablet 0.25 mg PO TID PRN (Reason: anxiety) 30 Days Qty: 90 1RF cholecalciferol (vitamin D3) 50 mcg (2,000 unit) tablet 50 mcg PO DAILY Qty: 90 0RF valsartan 80 mg tablet 80 mg PO BID Qty: 180 2RF Rx Instructions: New Dose famotidine 20 mg tablet 20 mg PO BID PRN (Reason: heartburn) 30 Days Qty: 60 1RF meclizine [Dramamine (meclizine)] 25 mg tablet 25 mg PO BID 5 Days Qty: 10 0RF acetaminophen 325 mg Tablet 325 mg PO QID PRN (Reason: Pain) dicyclomine 10 mg capsule 10 mg PO Q6H PRN (Reason: cramps) 10 Days Qty: 40 0RF ondansetron 4 mg tablet,disintegrating 4 mg PO Q8-12H PRN (Reason: nausea and vomiting) Qty: 14 0RF Interventions: ED Discharge Assessment Last Done: 12/09/22 12:50 Discharge Date/Time: 12/09/22 12:51
[2022-12-09] MEDS: iohexoL 350 MG/ML 100 ML INFUS..BTL IV (09:02)
[2022-12-09 10:00] VITALS: BP 144/93; PULSE 85; RESP 18; O2SAT 95
[2022-12-09] MEDS: Magnesium Hydrox/Alum Hydrox 30 ML ORAL.SUSP PO (10:04)
[2022-12-09] MEDS: Simethicone 80 MG TAB.CHEW 160 MG PO (10:04)
== END 2022-12-09 12:51 | disposition home or self-care (01) ==
PROVIDERS: Emergency Provider Internal Medicine; PCP Physician Assistant
DX: K59.00 Constipation, unspecified (principal); R25.2 Cramp and spasm; R10.32 Left lower quadrant pain; R94.31 Abnormal electrocardiogram [ECG] [EKG]; Z79.899 Other long term (current) drug therapy; Z87.891 Personal history of nicotine dependence
CPT/HCPCS: 36415; 74177; 80048; 80076; 81001; 83690; 85025; 93005; 99284; Q9967

== ENCOUNTER 2022-12-11 10:49 | Emergency (ER) | payer MEDICARE, OTHER, SELFPAY ==
--- NOTE | ~2022-12-11 | XR_ITS ---
EXAMINATION: XR ABDOMEN CLINICAL INFORMATION: Constipation COMPARISON: 2021 TECHNIQUE: Frontal view. FINDINGS: Included lung bases are clear. There is increased amount of stool projecting over the distribution of the colon raising suspicion for constipation. There is no evidence of bowel obstruction, however. There is no evidence of abnormal calcifications. There is no acute skeletal structure changes. There is no evidence of small-bowel obstruction. There is no free air in the abdomen. XR/XR KUB IMPRESSION: Increased amount of stool in the colon suggesting constipation. Please correlate with clinical presentation.
[2022-12-11 10:54] VITALS: BP 135/89; PULSE 84; RESP 18; TEMP 36.6; O2SAT 98; BMI 28.5
--- NOTE | 2022-12-11 11:33 | ED.GENADULT ---
HPI - General Adult General Chief complaint: General Medical Stated complaint: Constipated Time Seen by Provider: 12/11/22 11:21 Source: patient Mode of arrival: ambulatory History of Present Illness HPI narrative: 82-year-old female with a past medical history of GERD, diverticulosis, anxiety, diverticulitis, HTN, aortic stenosis, TIA, hydrocephalus, lumbar disc disease, presenting to the ED complaining of continued LLQ abdominal pain and constipation x days. Patient was seen and treated in our ED on 12/09 for similar symptoms, diagnosed with constipation, started on bowel regimen which she has been taking with little relief. Reports small BM this morning, with improved pain since then. Is passing flatus. Denies fever, nausea/vomiting, dysuria/hematuria. Onset (ago): day(s) Related Data Home Medications Medication Instructions Recorded Confirmed acetaminophen 325 mg tablet 325 mg PO QID PRN Pain 06/21/21 11/23/22 Previous Rx's Medication Instructions Recorded alprazolam 0.25 mg tablet 0.25 mg PO TID PRN anxiety 30 days 04/11/22 #90 tabs cholecalciferol (vitamin D3) 50 50 mcg PO DAILY #90 tabs 04/13/22 mcg (2,000 unit) tablet valsartan 80 mg tablet 80 mg PO BID #180 tabs 07/12/22 famotidine 20 mg tablet 20 mg PO BID PRN heartburn 30 days 09/21/22 #60 tabs ondansetron 4 mg disintegrating 4 mg PO Q8-12H PRN nausea and 11/04/22 tablet vomiting #14 tabs dicyclomine 10 mg capsule 10 mg PO Q6H PRN cramps 10 days 11/09/22 #40 caps meclizine 25 mg tablet (Dramamine 25 mg PO BID dizziness 5 days #10 12/06/22 (meclizine)) tabs docusate sodium 100 mg capsule 100 mg PO BID #20 caps 12/09/22 (Colace) polyethylene glycol 3350 17 17 g PO DAILY #238 grams 12/09/22 gram/dose oral powder (ClearLax) sennosides 8.6 mg capsule (senna) 8.6 mg PO BEDTIME #20 caps 12/09/22 peg 3350-electrolytes 236 240 ml PO Q10M #4,000 mL 12/11/22 gram-22.74 gram-6.74 gram-5.86 gram solution (GaviLyte-G) Allergies Allergy/AdvReac Type Severity Reaction Status Date / Time buspirone Allergy Intermediate Rash Verified 12/11/22 10:54 Sulfa (Sulfonamide Allergy Intermediate RASH Verified 12/11/22 10:54 Antibiotics) amoxicillin [From AUGMENTIN] Allergy Unknown PER H&P Verified 12/11/22 10:54 clavulanic acid Allergy Unknown PER H&P Verified 12/11/22 10:54 [From AUGMENTIN] garlic [GARLIC] Allergy Unknown PER H&P Verified 12/11/22 10:54 metronidazole [From FLAGYL] Allergy Unknown OCULAR Verified 12/11/22 10:54 MIGRAINES penicillamine Allergy Unknown Unknown Verified 12/11/22 10:54 ciprofloxacin AdvReac Intermediate neuropathic Verified 12/11/22 10:54 pain lisinopril AdvReac Intermediate Cough Verified 12/11/22 10:54 nitrofurantoin AdvReac Mild GI side Verified 12/11/22 10:54 effects environmental Allergy Unknown Unknown Uncoded 11/27/22 09:32 flagyl Allergy Unknown Unknown Uncoded 11/27/22 09:32 From KEFLEX Allergy Unknown RASH Uncoded 11/27/22 09:32 Metoprolol Tartrate Allergy Unknown Unknown Uncoded 11/27/22 09:32 Sulfacet-R Allergy Unknown Unknown Uncoded 11/27/22 09:32 Review of Systems Review of Systems: Constitutional: No Fever, No Chills, No Fatigue, No Malaise ENT/Mouth: No Ear Pain, No sore throat, No Rhinorrhea, No Swallowing Difficulty Eyes: No Eye Pain, No Swelling, No Redness, No Vision Changes Cardiovascular: No Chest Pain, No SOB, No Edema, No Palpitations Respiratory: No Cough, No Sputum, No Dyspnea Gastrointestinal: No Nausea, No Vomiting, No Diarrhea, + Constipation, + Abdominal pain Genitourinary:No Dysuria, No Hematuria, No Urinary Incontinence/retention, No Flank Pain Musculoskeletal: No joint pain, No Myalgias, No Joint Swelling Skin: No Skin Lesions, No rash Neuro: No Weakness, No Dizziness, No Headache Yes all other systems are reviewed and are negative Constitutional: Constitutional: Reports as per [facility] Past Medical History Attestation statement: The following information was validated with the patient. Medical History Anxiety Diverticulitis Heart murmur Irritable bowel Surgical History History of appendectomy History of tonsillectomy Family History Family History Father No problems noted. Mother No problems noted. Social History Social History Household Members: Children Housing: House Are you a primary resident care coordinator to a significant other at home: No Do you presently have visiting nurse or other home services: No Alcohol intake: never Patient Tobacco Use Status: Former Tobacco user Smoked in Last 30 Days: No e-Cigarette/Vaping Use: Never Used Second Hand Smoke Exposure: No Use of substances other than those prescribed or required for medical reasons: No Advance Directives: Yes Advance Directives on File: No Advance Directives Date on File: 11/21/22 service: No Current occupational status: retired Cognitive needs: No Hearing needs: No Vision needs: Yes (glasses) Physical Exam ED Vital Signs: Vital Signs - 24 hr 12/11/22 10:54 12/11/22 12:07 12/11/22 14:05 Temperature 97.8 F 97.8 F 98.3 F Pulse Rate 84 82 81 Respiratory Rate 18 18 13 Blood Pressure 135/89 147/88 H 158/91 H Pulse Oximetry 98 98 98 Oxygen Delivery Method Room Air Room Air Room Air 12/11/22 17:18 Temperature Pulse Rate 86 Respiratory Rate 20 Blood Pressure 131/86 Pulse Oximetry 96 Oxygen Delivery Method Room Air BMI result Body Mass Index 28.5 Const General: cooperative, healthy appearing and no acute distress Orientation/consciousness: patient oriented x3 Limitations: no limitations HENMT Head: Yes normal to inspection and Yes atraumatic Ears: hearing grossly normal bilaterally General nose exam: Normal external nose present Face and sinus: Yes normal facial exam Eyes General: appearance normal, both eyes and all related structures EOM: EOMs intact bilaterally Neck Neck: Yes normal visual inspection and Yes no meningeal signs Resp Effort & Inspection: normal respiratory effort and no respiratory distress Auscultation: clear to auscultation bilaterally Cardio Rate: regular rate Heart sounds: S1 normal heart sound present and S2 normal heart sound present GI Inspection: Yes normal to inspection Palpation (GI): Soft to palpation, Tenderness to palpation present (GI) in the epigastrum and in the LLQ; with no rebound tenderness, no guarding and not rigid Skin Rashes: no rashes Wounds: no wounds Neuro General: patient oriented x3, tone normal and no meningeal signs Gait exam (Neuro): Normal gait present Extrem General: Yes normal to inspection Course Course Course Narrative: XR KUB IMPRESSION:? Increased amount of stool in the colon suggesting constipation. Please correlate with clinical presentation.? > on rectal exam no fecal impaction appreciated. Will give subsides enema, senna, MiraLax --1525--patient is still without BM will try GoLYTELY -8--patient has been ambulating around the ED with steady gait. Denies having BM. GoLYTELY has still come up, from the pharmacy. Low suspicion for SBO with recent negative CT and x-ray today. Last BM was small however this morning per patient. With shared decision making will send GoLYTELY home with patient, discussed worrisome signs and symptoms and need for bowel movement in 48 hours if not to return to the ED. She verbalized understanding and feels safe for discharge home Results discussed with patient including worrisome signs and symptoms and strict return precautions, and when to return to the emergency department. They verbalized understanding and feel safe for discharge at this time. Medications Administered Discontinued Medications Generic Name Dose Route Start Last Admin Trade Name Zarina PRN Reason Stop Dose Admin Polyethylene Glycol 17 gm 12/11/22 12:49 12/11/22 13:18 Polyethylene Glycol 3350 17 Gm Powd.Pack PO 12/11/22 12:50 17 gm ONCE ONE Administration Polyethylene Glycol/Electrolytes 4,000 ml 12/11/22 15:30 12/11/22 17:16 Peg 3350/Na Sulf,Bicarb,Cl/Kcl 4,000 Ml Soln.Recon PO 12/11/22 15:31 4,000 ml ONCE ONE Administration Senna 8.6 mg 12/11/22 12:49 12/11/22 13:18 Sennosides 8.6 Mg Tablet PO 12/11/22 12:50 8.6 mg ONCE ONE Administration Medical Decision Making Medical Decision Making MDM Narrative: 82-year-old female with a past medical history of GERD, diverticulosis, anxiety, diverticulitis, HTN, aortic stenosis, TIA, hydrocephalus, lumbar disc disease, presenting to the ED complaining of continued LLQ abdominal pain and constipation x days. On exam vital signs stable, NAD, nontoxic appearing, abdomen soft with mild epigastric and LLQ tenderness, no rebound or guarding. Concern for continued constipation vs SBO. Low suspicion for diverticulitis/appendicitis or pancreatitis at this time. CT reviewed from 12/09 which showed constipation without obstruction. Plan: KUB, rectal exam for fecal impaction Please refer to course for remaining clinical decision making, interpretation of labs/imaging results, and discussions with consultants and/or family members. Differential Diagnosis Differential Diagnoses: The differential diagnosis associated with the presentation includes As above Admission/Observation Consideration of admission/observation: Escalation of care including admission/observation considered Lab Data MDM Lab Attestation statement: I reviewed the patient's lab results. Radiology Impression Discussion of test interpretation with radiology: I have reviewed the radiologist's reading. External Record Review External record reviewed: Inpatient record, Office record, Outpatient record, Prior outpatient labs, Prior outpatient radiology, Primary care record and Outside ED record Discharge Plan Discharge Clinical Impression: Constipation Patient Disposition: Home, Self-Care Instructions: Constipation (DC) Additional Instructions: You have acute on chronic constipation. Continue taking previously prescribed medications. In addition GoLYTELY will help clear out her bowel Increase fluid and fiber intake If you not have a bowel movement in 48 hours, stop passing gas, have increasing or worsening abdominal pain return to the emergency department Prescriptions: New peg 3350-electrolytes [GaviLyte-G] 236-22.74-6.74 -5.86 gram recon soln 240 ml PO Q10M Qty: 4000 0RF Rx Instructions: until fecal you have a bowel movement No Action alprazolam 0.25 mg tablet 0.25 mg PO TID PRN (Reason: anxiety) 30 Days Qty: 90 1RF cholecalciferol (vitamin D3) 50 mcg (2,000 unit) tablet 50 mcg PO DAILY Qty: 90 0RF valsartan 80 mg tablet 80 mg PO BID Qty: 180 2RF Rx Instructions: New Dose famotidine 20 mg tablet 20 mg PO BID PRN (Reason: heartburn) 30 Days Qty: 60 1RF meclizine [Dramamine (meclizine)] 25 mg tablet 25 mg PO BID 5 Days Qty: 10 0RF acetaminophen 325 mg Tablet 325 mg PO QID PRN (Reason: Pain) polyethylene glycol 3350 [ClearLax] 17 gram/dose powder 17 g PO DAILY Qty: 238 0RF docusate sodium [Colace] 100 mg capsule 100 mg PO BID Qty: 20 0RF senna 8.6 mg capsule 8.6 mg PO BEDTIME Qty: 20 0RF dicyclomine 10 mg capsule 10 mg PO Q6H PRN (Reason: cramps) 10 Days Qty: 40 0RF ondansetron 4 mg tablet,disintegrating 4 mg PO Q8-12H PRN (Reason: nausea and vomiting) Qty: 14 0RF Referrals: Nick Gomez PA-C [Primary Care Provider] - 3 days Interventions: ED Discharge Assessment Last Done: 12/11/22 17:21 Discharge Date/Time: 12/11/22 17:22
[2022-12-11 12:07] VITALS: BP 147/88; PULSE 82; RESP 18; TEMP 36.6; O2SAT 98
--- NOTE | 2022-12-11 12:30 | PC.NURSE ---
pt alert and oriented, skin pwd, respirations even and unlabored, pt reports defused abd pain, reports unable to have a bowel movement for a couple of days-was seen in the ed yesterday for the same thing and was given helena, Colace, fleet enema-pt did have a very small bowel movement earlier today. abd soft and non-tender
[2022-12-11] MEDS: Sennosides 8.6 MG TABLET PO (13:18)
[2022-12-11] MEDS: polyethylene glycoL 3350 17 GM POWD.PACK PO (13:18)
[2022-12-11 14:05] VITALS: BP 158/91; PULSE 81; RESP 13; TEMP 36.8; O2SAT 98
[2022-12-11] MEDS: PEG 3350/Na Sulf,Bicarb,Cl/KCL 4,000 ML SOLN.RECON 4000 ML PO (17:16)
[2022-12-11 17:18] VITALS: BP 131/86; PULSE 86; RESP 20; O2SAT 96
== END 2022-12-11 17:22 | disposition home or self-care (01) ==
PROVIDERS: Emergency Provider Emergency Medicine; PCP Physician Assistant
DX: K59.00 Constipation, unspecified (principal); R10.32 Left lower quadrant pain; Z79.899 Other long term (current) drug therapy
CPT/HCPCS: 74018; 99283; 99284

== ENCOUNTER 2022-12-24 10:33 | Emergency (ER) | payer MEDICARE, OTHER, SELFPAY ==
[2022-12-24 10:45] VITALS: BP 152/96; PULSE 98; RESP 18; TEMP 36.4; O2SAT 98; BMI 27.9
[2022-12-24 12:07] VITALS: BP 150/93; PULSE 85; RESP 14; TEMP 36.7; O2SAT 97
--- NOTE | 2022-12-24 12:17 | ED_ITS ---
HPI - General Adult General Chief complaint: General Medical Stated complaint: sent by vaginal bleeding Time Seen by Provider: 12/24/22 12:16 Source: patient Mode of arrival: EMS Limitations: no limitations History of Present Illness HPI narrative: 82-year-old female who presents emergency department for evaluation of the blood per rectum. The patient has a long history across the patient has been seen multiple times in the emergency department. She states that her provider got a CAT scan on her which revealed severe constipation. She was then treated with GoLYTELY 2 weeks prior and states that she had multiple bowel movements he had cleaned her out. She states that since then however she has had small bowel movements. She states she was taking Metamucil fiber capsules over the past 2-3 days. She states that last night she had lower abdominal cramping and that have bowel movement. She states she had multiple hard stools and noted bright red blood per rectum. She states that she was concerned about the bleeding so she came to the emergency department for evaluation. She denied fever, chills, chest pain, shortness of breath, lightheadedness, dizziness, abdominal pain, nausea, vomiting or diarrhea. Related Data Home Medications Medication Instructions Recorded Confirmed acetaminophen 325 mg tablet 325 mg PO QID PRN Pain 06/21/21 11/23/22 Previous Rx's Medication Instructions Recorded alprazolam 0.25 mg tablet 0.25 mg PO TID PRN anxiety 30 days 04/11/22 #90 tabs cholecalciferol (vitamin D3) 50 50 mcg PO DAILY #90 tabs 04/13/22 mcg (2,000 unit) tablet valsartan 80 mg tablet 80 mg PO BID #180 tabs 07/12/22 famotidine 20 mg tablet 20 mg PO BID PRN heartburn 30 days 09/21/22 #60 tabs ondansetron 4 mg disintegrating 4 mg PO Q8-12H PRN nausea and 11/04/22 tablet vomiting #14 tabs dicyclomine 10 mg capsule 10 mg PO Q6H PRN cramps 10 days 11/09/22 #40 caps meclizine 25 mg tablet (Dramamine 25 mg PO BID dizziness 5 days #10 12/06/22 (meclizine)) tabs docusate sodium 100 mg capsule 100 mg PO BID #20 caps 12/09/22 (Colace) polyethylene glycol 3350 17 17 g PO DAILY #238 grams 12/09/22 gram/dose oral powder (ClearLax) sennosides 8.6 mg capsule (senna) 8.6 mg PO BEDTIME #20 caps 12/09/22 peg 3350-electrolytes 236 240 ml PO Q10M #4,000 mL 12/11/22 gram-22.74 gram-6.74 gram-5.86 gram solution (GaviLyte-G) Allergies Allergy/AdvReac Type Severity Reaction Status Date / Time buspirone Allergy Intermediate Rash Verified 12/11/22 10:54 Sulfa (Sulfonamide Allergy Intermediate RASH Verified 12/11/22 10:54 Antibiotics) amoxicillin [From AUGMENTIN] Allergy Unknown PER H&P Verified 12/11/22 10:54 clavulanic acid Allergy Unknown PER H&P Verified 12/11/22 10:54 [From AUGMENTIN] garlic [GARLIC] Allergy Unknown PER H&P Verified 12/11/22 10:54 metronidazole [From FLAGYL] Allergy Unknown OCULAR Verified 12/11/22 10:54 MIGRAINES penicillamine Allergy Unknown Unknown Verified 12/11/22 10:54 ciprofloxacin AdvReac Intermediate neuropathic Verified 12/11/22 10:54 pain lisinopril AdvReac Intermediate Cough Verified 12/11/22 10:54 nitrofurantoin AdvReac Mild GI side Verified 12/11/22 10:54 effects environmental Allergy Unknown Unknown Uncoded 11/27/22 09:32 flagyl Allergy Unknown Unknown Uncoded 11/27/22 09:32 From KEFLEX Allergy Unknown RASH Uncoded 11/27/22 09:32 Metoprolol Tartrate Allergy Unknown Unknown Uncoded 11/27/22 09:32 Sulfacet-R Allergy Unknown Unknown Uncoded 11/27/22 09:32 Review of Systems Review of Systems: Yes all other systems are reviewed and are negative [facility] Past Medical History [facility] Narrative: Social history: She lives at home with her son. She denies tobacco, alcohol and drug use. Medical History Anxiety Diverticulitis Heart murmur Irritable bowel Surgical History History of appendectomy History of tonsillectomy Family History Family History Father No problems noted. Mother No problems noted. Social History Social History Household Members: Children Housing: House Are you a primary child day care teacher to a significant other at home: No Do you presently have visiting nurse or other home services: No Alcohol intake: never Patient Tobacco Use Status: Former Tobacco user Smoked in Last 30 Days: No e-Cigarette/Vaping Use: Never Used Second Hand Smoke Exposure: No Advance Directives: Yes Advance Directives on File: Yes Advance Directives Date on File: 11/21/22 service: No Current occupational status: retired Cognitive needs: No Hearing needs: No Vision needs: Yes (glasses) Physical Exam ED Vital Signs: Vital Signs - 24 hr 12/24/22 10:45 12/24/22 10:45 12/24/22 12:07 Temperature 97.5 F 97.6 F 98.0 F Pulse Rate 98 98 85 Respiratory Rate 18 18 14 Blood Pressure 152/96 H 152/96 H 150/93 H Pulse Oximetry 98 98 97 Oxygen Delivery Method Room Air Room Air Room Air BMI result Body Mass Index 27.9 Const General: cooperative and no acute distress Orientation/consciousness: oriented to person and oriented to place Limitations: no limitations HENMT Head: Yes normal to inspection, Yes normocephalic and Yes atraumatic Ears: external ears normal General nose exam: Normal external nose present Face and sinus: Yes normal facial exam Mouth: Normal oral and palatal mucosa present Throat: Yes posterior oropharynx normal Eyes General: appearance normal, both eyes and all related structures Pupils: Equal, round and reactive pupils present Neck Neck: Yes normal visual inspection, Yes no lymphadenopathy, Yes trachea midline and Yes supple Chest Chest palpation & inspection: normal inspection of the chest and normal palpation of entire chest wall Resp Effort & Inspection: normal respiratory effort and able to speak in complete sentences Auscultation: clear to auscultation bilaterally Cardio Rate: regular rate Rhythm: regular rhythm Heart sounds: S1 normal heart sound present, S2 normal heart sound present and no murmurs GI Inspection: Yes normal to inspection Palpation (GI): Soft to palpation, nontender and no guarding Auscultation: normal bowel sounds Rectal Exam - Female: normal sphincter tone, No External hemorrhoid(s) present and other (No stool in the rectal , bright red blood on the glove) General: Yes no CVA tenderness Back/Spine/Pelvis Back: no CVA tenderness Skin General skin exam: no rashes or lesions noted Neuro General: oriented to person and oriented to place Cranial nerves: Yes CN's II-XII intact bilaterally and Yes Equal, round and reactive pupils present Cognition (Neuro): normal cognition Motor exam (neuro): 5/5 motor strength present throughout Extrem General: Yes normal to inspection Psych Appearance: grossly normal Speech and movement: Normal speech and movement present Affect: normal affect Attitude: cooperative Thought process: Normal thought process present Thought content: Normal thought content present Medical Decision Making Medical Decision Making MDM Narrative: 82-year-old female with a history of irritable bowel syndrome and constipation who presents emergency department for evaluation of bright red blood per rectum after having a bowel movement last night. Patient has no other symptoms. Abdominal exam was normal. Rectal exam did reveal blood in the rectum with no stool and no external hemorrhoids. I did order a laboratory evaluation includes CBC, CMP, occult stool test. 1420: My interpretation patient's laboratory evaluation is as follows: Low WBC 3700. Low H&H 11.1 and 33.6. Low platelet count 560607. These values are chronically low. Elevated potassium 5.4. Elevated bicarb 30. Occult stool was positive. The patient's the bleeding is most likely secondary to an internal hemorrhoid or polyp which is bleeding secondary to her constipation. I did discuss this with her. She was advised to continue taking a fiber supplement as prescribed by her provider. She was also advised to take Colace 1 pill twice a day. She was given printed and verbal instructions discharged home. Lab Data 12/24/22 12:51 12/24/22 12:51 Labs: Lab Results 12/24/22 12/24/22 12/24/22 Range/Units 12:42 12:51 12:51 WBC 3.7 L (4.8-10.8) X10*3/uL RBC 3.58 L (4.20-5.50) X10*6/uL Hgb 11.1 L (12.0-16.0) g/dl Hct 33.6 L (37.0-47.0) % MCV 93.9 (80.0-98.0) fL MCH 31.0 (27.0-33.0) pg MCHC 33.0 (31.0-35.0) g/dl RDW 13.6 (11.0-16.0) % Plt Count 146 L D (160-400) X10*3/uL MPV 11.4 (9.4-12.3) fL Immature Gran % (Auto) 0.5 H (0.0-0.4) % Neut % (Auto) 72.3 (45-73) % Lymph % (Auto) 17.7 L (20-40) % [place] % (Auto) 7.6 (2-11) % Eos % (Auto) 1.4 (0-4) % Baso % (Auto) 0.5 (0-2) % Lymph # (Auto) 0.7 L (1.2-4.9) X10*3/uL [place] # (Auto) 0.3 (0.1-1.2) X10*3/uL Eos # (Auto) 0.1 (0.0-0.4) X10*3/uL Baso # (Auto) 0.0 (0.0-0.2) X10*3/uL Abs Immat Gran (auto) 0.02 (0.00-0.03) X10*3/uL Absolute Neuts (auto) 2.7 (2.0-8.3) x10*3/uL Absolute Nucleated RBC 0.000 (0.0-0.012) X10*3/uL Nucleated RBC % (auto) 0.0 (0.0-0.2) /100WBC Sodium 144 (135-145) mmol/L Potassium 5.4 H (3.3-5.1) mmol/L Chloride 105 (96-108) mmol/L Carbon Dioxide 30 H (22-29) mmol/L Anion Gap 14 (12-20) BUN 15 (9-16) mg/dL Creatinine 0.84 (0.5-1.4) mg/dL Estim Creat Clear Calc 54.6 Estimated GFR > 60 Random Glucose 102 (60-115) mg/dL Calcium 9.7 (8.4-10.2) mg/dL Total Bilirubin 0.6 (0.0-1.0) mg/dL AST 19 (5-31) U/L ALT 14 (0-31) U/L Alkaline Phosphatase 84 (39-117) U/L Total Protein 6.7 (6.5-8.0) g/dL Albumin 4.2 (3.5-5.0) g/dL Stool Occult Blood POSITIVE (NEGATIVE) Discharge Plan Discharge Clinical Impression: Bright red rectal bleeding, Acute constipation Patient Disposition: Home, Self-Care Instructions: Rectal Bleeding (ED) Additional Instructions: Your blood work was normal, you have mild anemia which is unchanged from your previous blood test which is very reassuring The bleeding that you saws most likely caused by an internal hemorrhoid which was irritated by your constipation and not by your fiber supplement. Continue to take your fiber supplement as prescribed by your provider Take Colace 1 pill twice a day, this is stool softer and should help as well. Follow-up with your doctor in 2 days. Please return to the emergency department if your symptoms get worse or if you develop any symptoms that are concerning to you. Prescriptions: No Action alprazolam 0.25 mg tablet 0.25 mg PO TID PRN (Reason: anxiety) 30 Days Qty: 90 1RF cholecalciferol (vitamin D3) 50 mcg (2,000 unit) tablet 50 mcg PO DAILY Qty: 90 0RF valsartan 80 mg tablet 80 mg PO BID Qty: 180 2RF Rx Instructions: New Dose famotidine 20 mg tablet 20 mg PO BID PRN (Reason: heartburn) 30 Days Qty: 60 1RF meclizine [Dramamine (meclizine)] 25 mg tablet 25 mg PO BID 5 Days Qty: 10 0RF acetaminophen 325 mg Tablet 325 mg PO QID PRN (Reason: Pain) polyethylene glycol 3350 [ClearLax] 17 gram/dose powder 17 g PO DAILY Qty: 238 0RF docusate sodium [Colace] 100 mg capsule 100 mg PO BID Qty: 20 0RF senna 8.6 mg capsule 8.6 mg PO BEDTIME Qty: 20 0RF peg 3350-electrolytes [GaviLyte-G] 236-22.74-6.74 -5.86 gram recon soln 240 ml PO Q10M Qty: 4000 0RF Rx Instructions: until fecal you have a bowel movement dicyclomine 10 mg capsule 10 mg PO Q6H PRN (Reason: cramps) 10 Days Qty: 40 0RF ondansetron 4 mg tablet,disintegrating 4 mg PO Q8-12H PRN (Reason: nausea and vomiting) Qty: 14 0RF
[2022-12-24 12:58] LABS: MANUAL DIFF FLAG NO
[2022-12-24 13:00] LABS: OBS Int Ctl Valid YES; OBS1 POSITIVE (NEGATIVE)
[2022-12-24 13:05] LABS: Basophils Percent Auto 0.5 % (0-2); Eosinophils Absolute Auto 0.1 X10*3/uL (0.0-0.4); Eosinophils Percent Auto 1.4 % (0-4); Hematocrit 33.6 % (37.0-47.0); Hemoglobin 11.1 g/dl (12.0-16.0); Imm Gran Abs Auto 0.02 X10*3/uL (0.00-0.03); Imm Gran Pct Auto 0.5 % (0.0-0.4); Lymphocytes Absolute Auto 0.7 X10*3/uL (1.2-4.9); Lymphocytes Percent Auto 17.7 % (20-40); Mean Corpuscular Volume 93.9 fL (80.0-98.0); Mean Platelet Volume 11.4 fL (9.4-12.3); Monocytes Absolute Auto 0.3 X10*3/uL (0.1-1.2); Monocytes Percent Auto 7.6 % (2-11); Neutrophils Absolute Auto 2.7 x10*3/uL (2.0-8.3); Neutrophils Percent Auto 72.3 % (45-73); Platelet Count 146 X10*3/uL (160-400); Red Blood Count 3.58 X10*6/uL (4.20-5.50); Red Cell Distribution Width 13.6 % (11.0-16.0); White Blood Count 3.7 X10*3/uL (4.8-10.8)
[2022-12-24 13:15] LABS: Alanine Aminotransferase 14 U/L (0-31); Albumin Level 4.2 g/dL (3.5-5.0); Alkaline Phosphatase 84 U/L (39-117); Anion Gap 14 (12-20); Aspartate Amino Transferase 19 U/L (5-31); Bilirubin Total 0.6 mg/dL (0.0-1.0); Blood Urea Nitrogen 15 mg/dL (9-16); Calcium 9.7 mg/dL (8.4-10.2); Carbon Dioxide 30 mmol/L (22-29); Chloride 105 mmol/L (96-108); Creatinine Clr Calc Pharmacy 54.6; Estimated Glomerular Filt Rate > 60; Glucose Random 102 mg/dL (60-115); Potassium 5.4 mmol/L (3.3-5.1); Sodium 144 mmol/L (135-145); Total Protein 6.7 g/dL (6.5-8.0)
[2022-12-24 14:28] VITALS: BP 153/93; PULSE 84; RESP 13; TEMP 36.6; O2SAT 97
== END 2022-12-24 14:33 | disposition home or self-care (01) ==
PROVIDERS: Emergency Provider Emergency Medicine Emergency Medical Services; PCP Physician Assistant
DX: K62.5 Hemorrhage of anus and rectum (principal); K59.00 Constipation, unspecified; Z79.899 Other long term (current) drug therapy
CPT/HCPCS: 36415; 80053; 82272; 85025; 99283; 99284

== ENCOUNTER 2022-12-27 14:43 | Emergency (ER) | payer MEDICARE, OTHER, SELFPAY ==
[2022-12-27 15:02] VITALS: BP 146/89; PULSE 92; RESP 18; TEMP 36.2; O2SAT 97; BMI 29.2
--- NOTE | 2022-12-27 15:03 | ED_ITS ---
HPI - General Adult General Chief complaint: General Medical <ROMAINE Mensah - Last Filed: 12/27/22 15:09> Stated complaint: Abd pain/Blood in feces sent by Jason <ROMAINE Mensah - Last Filed: 12/27/22 15:09> Time Seen by Provider: 12/27/22 17:09 <ROMAINE Mensah - Last Filed: 12/27/22 15:09> Source: patient <Geovanny Vegas MD - Last Filed: 12/27/22 18:30> Mode of arrival: ambulatory <Geovanny Vegas MD - Last Filed: 12/27/22 18:30> Limitations: no limitations <Geovanny Vegas MD - Last Filed: 12/27/22 18:30> History of Present Illness HPI narrative: 82-year-old female who presents emergency department for evaluation of bloody stools. Patient was evaluated by me on 12/25/2022 , 3 days prior for similar complaint patient states that she has been having daily formed stools. She states that is not painful to move her bowels .she states that she has no bright red blood per rectum and occasional maroon stools. She is complaining of pain in her abdomen points to her left side especially left lower quadrant. Patient has a history of diverticulitis and diverticulosis had similar pain in the past. Patient previously was complaining of constipation (see my previous note). She states she is feeling weak and anxious. She is also feeling fatigued. She denied lightheadedness or dizziness Patient states she has been having sore throat for the past 2 days, she denied fever, chills, rhinorrhea or cough. <Geovanny Vegas MD - Last Filed: 12/27/22 18:30> Related Data Home medications: Home Medications Medication Instructions Recorded Confirmed acetaminophen 325 mg tablet 325 mg PO QID PRN Pain 06/21/21 11/23/22 Previous Rx's Medication Instructions Recorded alprazolam 0.25 mg tablet 0.25 mg PO TID PRN anxiety 30 days 04/11/22 #90 tabs cholecalciferol (vitamin D3) 50 50 mcg PO DAILY #90 tabs 04/13/22 mcg (2,000 unit) tablet valsartan 80 mg tablet 80 mg PO BID #180 tabs 07/12/22 famotidine 20 mg tablet 20 mg PO BID PRN heartburn 30 days 09/21/22 #60 tabs ondansetron 4 mg disintegrating 4 mg PO Q8-12H PRN nausea and 11/04/22 tablet vomiting #14 tabs dicyclomine 10 mg capsule 10 mg PO Q6H PRN cramps 10 days 11/09/22 #40 caps meclizine 25 mg tablet (Dramamine 25 mg PO BID dizziness 5 days #10 12/06/22 (meclizine)) tabs docusate sodium 100 mg capsule 100 mg PO BID #20 caps 12/09/22 (Colace) polyethylene glycol 3350 17 17 g PO DAILY #238 grams 12/09/22 gram/dose oral powder (ClearLax) sennosides 8.6 mg capsule (senna) 8.6 mg PO BEDTIME #20 caps 12/09/22 peg 3350-electrolytes 236 240 ml PO Q10M #4,000 mL 12/11/22 gram-22.74 gram-6.74 gram-5.86 gram solution (GaviLyte-G) <ROMAINE Mensah - Last Filed: 12/27/22 15:09> Allergies/adverse reactions: Allergies Allergy/AdvReac Type Severity Reaction Status Date / Time buspirone Allergy Intermediate Rash Verified 12/11/22 10:54 Sulfa (Sulfonamide Allergy Intermediate RASH Verified 12/11/22 10:54 Antibiotics) amoxicillin [From AUGMENTIN] Allergy Unknown PER H&P Verified 12/11/22 10:54 clavulanic acid Allergy Unknown PER H&P Verified 12/11/22 10:54 [From AUGMENTIN] garlic [GARLIC] Allergy Unknown PER H&P Verified 12/11/22 10:54 metronidazole [From FLAGYL] Allergy Unknown OCULAR Verified 12/11/22 10:54 MIGRAINES penicillamine Allergy Unknown Unknown Verified 12/11/22 10:54 ciprofloxacin AdvReac Intermediate neuropathic Verified 12/11/22 10:54 pain lisinopril AdvReac Intermediate Cough Verified 12/11/22 10:54 nitrofurantoin AdvReac Mild GI side Verified 12/11/22 10:54 effects environmental Allergy Unknown Unknown Uncoded 11/27/22 09:32 flagyl Allergy Unknown Unknown Uncoded 11/27/22 09:32 From KEFLEX Allergy Unknown RASH Uncoded 11/27/22 09:32 Metoprolol Tartrate Allergy Unknown Unknown Uncoded 11/27/22 09:32 Sulfacet-R Allergy Unknown Unknown Uncoded 11/27/22 09:32 <ROMAINE Mensah - Last Filed: 12/27/22 15:09> Review of Systems Review of Systems: Yes all other systems are reviewed and are negative <Geovanny Vegas MD - Last Filed: 12/27/22 18:30> [facility] Past Medical History Medical History: Medical History Anxiety Diverticulitis Heart murmur Irritable bowel <ROMAINE Mensah - Last Filed: 12/27/22 15:09> Surgical History: Surgical History History of appendectomy History of tonsillectomy <ROMAINE Mensah - Last Filed: 12/27/22 15:09> Family History Family History: Family History Father No problems noted. Mother No problems noted. <ROMAINE Mensah - Last Filed: 12/27/22 15:09> Social History Social History: Social History Household Members: Children Housing: House Are you a primary hemodialysis patient care specialist to a significant other at home: No Do you presently have visiting nurse or other home services: No Alcohol intake: never Patient Tobacco Use Status: Former Tobacco user Smoked in Last 30 Days: No e-Cigarette/Vaping Use: Never Used Second Hand Smoke Exposure: No Use of substances other than those prescribed or required for medical reasons: No Advance Directives: No Advance Directives Information Provided: No Advance Directives Date on File: 11/21/22 service: No Current occupational status: retired Cognitive needs: No Hearing needs: No Vision needs: Yes (glasses) <ROMAINE Mensah - Last Filed: 12/27/22 15:09> Physical Exam ED Vital Signs: Vital Signs - 24 hr 12/27/22 15:02 12/27/22 17:37 Temperature 97.1 F Pulse Rate 92 93 Respiratory Rate 18 16 Blood Pressure 146/89 H 138/88 Pulse Oximetry 97 98 Oxygen Delivery Method Room Air Room Air BMI result Body Mass Index 29.2 <ROMAINE Mensah - Last Filed: 12/27/22 15:09> Vital Signs - 24 hr 12/27/22 15:02 12/27/22 17:37 Temperature 97.1 F Pulse Rate 92 93 Respiratory Rate 18 16 Blood Pressure 146/89 H 138/88 Pulse Oximetry 97 98 Oxygen Delivery Method Room Air Room Air BMI result Body Mass Index 29.2 <Geovanny Vegas MD - Last Filed: 12/27/22 18:30> Const Other: Awake, alert, female patient, very pleasant cooperative, does not appear to be in distress, answers all questions appropriately <Geovanny Vegas MD - Last Filed: 12/27/22 18:30> HENMT Head: Yes normal to inspection, Yes normocephalic and Yes atraumatic <Geovanny Vegas MD - Last Filed: 12/27/22 18:30> Ears: external ears normal <Geovanny Vegas MD - Last Filed: 12/27/22 18:30> General nose exam: Normal external nose present <Geovanny Vegas MD - Last Filed: 12/27/22 18:30> Face and sinus: Yes normal facial exam <Geovanny Vegas MD - Last Filed: 12/27/22 18:30> Mouth: Normal oral and palatal mucosa present <Geovanny Vegas MD - Last Filed: 12/27/22 18:30> Throat: Yes posterior oropharynx normal <Geovanny Vegas MD - Last Filed: 12/27/22 18:30> Eyes General: appearance normal, both eyes and all related structures <Geovanny Vegas MD - Last Filed: 12/27/22 18:30> Pupils: Equal, round and reactive pupils present <Geovanny Vegas MD - Last Filed: 12/27/22 18:30> Neck Neck: Yes normal visual inspection, Yes no lymphadenopathy, Yes trachea midline and Yes supple <MD Karine Quintanilal Last Filed: 12/27/22 18:30> Chest Chest palpation & inspection: normal inspection of the chest and normal palpation of entire chest wall <MD Karine Quintanilla Last Filed: 12/27/22 18:30> Resp Effort & Inspection: normal respiratory effort and able to speak in complete sentences <MD Karine Quintanilla Last Filed: 12/27/22 18:30> Auscultation: clear to auscultation bilaterally <MD Karine Quintanilla Last Filed: 12/27/22 18:30> Cardio Rate: regular rate <MD Karine Quintanilla Last Filed: 12/27/22 18:30> Rhythm: regular rhythm <MD Karine Quintanilla Last Filed: 12/27/22 18:30> Heart sounds: S1 normal heart sound present, S2 normal heart sound present and no murmurs <MD Karine Quintanilla Last Filed: 12/27/22 18:30> GI Other: Patient's abdomen appears to be normal, nondistended, she has mild left lower quadrant tenderness with no rebound, no voluntary or involuntary guarding, rectal exam revealed hard stool, no external hemorrhoids, no masses on digital exam, the stool brown and was Hemoccult positive. <MD Karine Quintanilla Last Filed: 12/27/22 18:30> General: Yes no CVA tenderness <MD Karine Quintanilla Last Filed: 12/27/22 18:30> Back/Spine/Pelvis Back: no CVA tenderness <MD Karine Quintanilla Last Filed: 12/27/22 18:30> Skin General skin exam: no rashes or lesions noted <MD Karine Quintanilla Last Filed: 12/27/22 18:30> Neuro Cranial nerves: Yes CN's II-XII intact bilaterally and Yes Equal, round and reactive pupils present <MD Karine Quintanilla Last Filed: 12/27/22 18:30> Cognition (Neuro): normal cognition <MD Karine Quintanilla Last Filed: 12/27/22 18:30> Motor exam (neuro): 5/5 motor strength present throughout <Geovanny Vegas MD - Last Filed: 12/27/22 18:30> Extrem General: Yes normal to inspection <Geovanny Vegas MD - Last Filed: 12/27/22 18:30> Psych Appearance: grossly normal <Geovanny Vegas MD - Last Filed: 12/27/22 18:30> Speech and movement: Normal speech and movement present <Geovanny Vegas MD - Last Filed: 12/27/22 18:30> Affect: normal affect <Geovanny Vegas MD - Last Filed: 12/27/22 18:30> Attitude: cooperative <Geovanny Vegas MD - Last Filed: 12/27/22 18:30> Course Course Course Narrative: RME: 82-year-old female with a past medical history of GERD, diverticulosis, anxiety, diverticulitis, HTN, aortic stenosis, TIA, hydrocephalus, lumbar disc disease, presenting to the ED complaining of generalized weakness, lightheadedness, maroon rectal bleeding when wiping, & intermittent lower abdominal pain/cramping x 1 week. Pt was recently seen in our ED on 12/24 for similar sx. Also reports sore throat. Denies constipation, rectal pain, CP/SOB EKG, Labs, UA, Occult stool, rapid strep ordered Full HPI, ROS and PE to be performed by primary ED provider. <ROMAINE Mensah - Last Filed: 12/27/22 15:09> Medical Decision Making Medical Decision Making MDM Narrative: 82-year-old female who presents emergency department for evaluation of bright red blood per rectum, emergency stools and left lower quadrant pain. Patient had a similar presentation 3 days prior was evaluated by me. Patient has had similar presentations in the past. Examination revealed mild left lower quadrant tenderness rectal exam revealed brown stool which was Hemoccult positive. Provider at triage ordered CBC, BMP, liver panel, lipase, troponin, strep test, urinalysis, magnesium, PT/INR Laboratory evaluation: Patient was anemic with an H&H of 10 and 31.6 this was compared to an H&H of 11 and 33.6 on 12/24/2022. Count was low 132,000-this is chronic. WBC is low at 4300 again this is chronic. BMP and liver panel was normal. Lipase was normal. Rapid strep test was negative. At this time, I do not think that the patient needs a CT scan of her abdomen pelvis or any further treatment. The patient has a lower GI bleed with has not called significant anemia or significant symptoms. Scheduled for an endoscopy and colonoscopy on January 09, 2023. I told her to contact her GI doctor to discuss her presentation. Patient was discharged home <Geovanny Vegas MD - Last Filed: 12/27/22 18:30> Differential Diagnosis Differential diagnosis includes was not limited to diverticulitis, di verticular bleed, polyp bleed, internal or external hemorrhoid bleed CT, viral pharyngitis, bacterial pharyngitis , viral syndrome <Geovanny Vegas MD - Last Filed: 12/27/22 18:30> Admission/Observation Consideration of admission/observation: Escalation of care including admission/observation considered <Geovanny Vegas MD - Last Filed: 12/27/22 18:30> Lab Data [facility] Lab Attestation statement: I reviewed the patient's lab results. <Geovanny Vegas MD - Last Filed: 12/27/22 18:30> Please see [facility] <Geovanny Vegas MD - Last Filed: 12/27/22 18:30> Result Diagrams: 12/27/22 15:48 12/27/22 15:48 <ROMAINE Mensah - Last Filed: 12/27/22 15:09> Labs: Lab Results 12/27/22 12/27/22 12/27/22 Range/Units 15:48 15:48 15:48 WBC 4.3 L (4.8-10.8) X10*3/uL RBC 3.33 L (4.20-5.50) X10*6/uL Hgb 10.5 L (12.0-16.0) g/dl Hct 31.6 L (37.0-47.0) % MCV 94.9 (80.0-98.0) fL MCH 31.5 (27.0-33.0) pg MCHC 33.2 (31.0-35.0) g/dl RDW 13.7 (11.0-16.0) % Plt Count 133 L (160-400) X10*3/uL MPV 11.6 (9.4-12.3) fL Immature Gran % (Auto) 0.2 (0.0-0.4) % Neut % (Auto) 75.9 H (45-73) % Lymph % (Auto) 16.2 L (20-40) % Dawson % (Auto) 6.3 (2-11) % Eos % (Auto) 1.2 (0-4) % Baso % (Auto) 0.2 (0-2) % Lymph # (Auto) 0.7 L (1.2-4.9) X10*3/uL Dawson # (Auto) 0.3 (0.1-1.2) X10*3/uL Eos # (Auto) 0.1 (0.0-0.4) X10*3/uL Baso # (Auto) 0.0 (0.0-0.2) X10*3/uL Abs Immat Gran (auto) 0.01 (0.00-0.03) X10*3/uL Absolute Neuts (auto) 3.3 (2.0-8.3) x10*3/uL Absolute Nucleated RBC 0.000 (0.0-0.012) X10*3/uL Nucleated RBC % (auto) 0.0 (0.0-0.2) /100WBC PT 11.3 (10.0-13.1) SEC INR 1.0 (0.9-1.1) Sodium 140 (135-145) mmol/L Potassium 4.6 (3.3-5.1) mmol/L Chloride 103 (96-108) mmol/L Carbon Dioxide 30 H (22-29) mmol/L Anion Gap 12 (12-20) BUN 23 H (9-16) mg/dL Creatinine 0.87 (0.5-1.4) mg/dL Estim Creat Clear Calc 53.8 Estimated GFR > 60 Random Glucose 98 (60-115) mg/dL Calcium 9.5 (8.4-10.2) mg/dL Magnesium 2.0 (1.6-2.6) mg/dL Total Bilirubin 0.7 (0.0-1.0) mg/dL Direct Bilirubin 0.2 (0.0-0.5) mg/dL AST 20 (5-31) U/L ALT 16 (0-31) U/L Alkaline Phosphatase 95 (39-117) U/L Troponin I High Sens (<3.5-17.0) ng/L Total Protein 6.8 (6.5-8.0) g/dL Albumin 4.2 (3.5-5.0) g/dL Lipase 19 (8-78) U/L Urine Color Urine Appearance Urine pH (5.0-9.0) Ur Specific [place] (1.005-1.025) Urine Protein (Neg-Trace) mg/dL Urine Glucose (UA) (Negative) mg/dL Urine Ketones (Negative) mg/dL Urine Blood (Negative) Urine Nitrite (Negative) Ur Leukocyte Esterase (Negative) Stool Occult Blood (NEGATIVE) S. pyogenes GrpA PORTILLO (Negative) 12/27/22 12/27/22 12/27/22 Range/Units 15:48 15:49 16:16 WBC (4.8-10.8) X10*3/uL RBC (4.20-5.50) X10*6/uL Hgb (12.0-16.0) g/dl Hct (37.0-47.0) % MCV (80.0-98.0) fL MCH (27.0-33.0) pg MCHC (31.0-35.0) g/dl RDW (11.0-16.0) % Plt Count (160-400) X10*3/uL MPV (9.4-12.3) fL Immature Gran % (Auto) (0.0-0.4) % Neut % (Auto) (45-73) % Lymph % (Auto) (20-40) % Dawson % (Auto) (2-11) % Eos % (Auto) (0-4) % Baso % (Auto) (0-2) % Lymph # (Auto) (1.2-4.9) X10*3/uL Dawson # (Auto) (0.1-1.2) X10*3/uL Eos # (Auto) (0.0-0.4) X10*3/uL Baso # (Auto) (0.0-0.2) X10*3/uL Abs Immat Gran (auto) (0.00-0.03) X10*3/uL Absolute Neuts (auto) (2.0-8.3) x10*3/uL Absolute Nucleated RBC (0.0-0.012) X10*3/uL Nucleated RBC % (auto) (0.0-0.2) /100WBC PT (10.0-13.1) SEC INR (0.9-1.1) Sodium (135-145) mmol/L Potassium (3.3-5.1) mmol/L Chloride (96-108) mmol/L Carbon Dioxide (22-29) mmol/L Anion Gap (12-20) BUN (9-16) mg/dL Creatinine (0.5-1.4) mg/dL Estim Creat Clear Calc Estimated GFR Random Glucose (60-115) mg/dL Calcium (8.4-10.2) mg/dL Magnesium (1.6-2.6) mg/dL Total Bilirubin (0.0-1.0) mg/dL Direct Bilirubin (0.0-0.5) mg/dL AST (5-31) U/L ALT (0-31) U/L Alkaline Phosphatase (39-117) U/L Troponin I High Sens 5.0 (<3.5-17.0) ng/L Total Protein (6.5-8.0) g/dL Albumin (3.5-5.0) g/dL Lipase (8-78) U/L Urine Color Yellow Urine Appearance Clear Urine pH 5.5 (5.0-9.0) Ur Specific [place] <= 1.005 (1.005-1.025) Urine Protein Negative (Neg-Trace) mg/dL Urine Glucose (UA) Negative (Negative) mg/dL Urine Ketones Negative (Negative) mg/dL Urine Blood Negative (Negative) Urine Nitrite Negative (Negative) Ur Leukocyte Esterase Negative (Negative) Stool Occult Blood (NEGATIVE) S. pyogenes GrpA PORTILLO Negative (Negative) 12/27/22 Range/Units 17:56 WBC (4.8-10.8) X10*3/uL RBC (4.20-5.50) X10*6/uL Hgb (12.0-16.0) g/dl Hct (37.0-47.0) % MCV (80.0-98.0) fL MCH (27.0-33.0) pg MCHC (31.0-35.0) g/dl RDW (11.0-16.0) % Plt Count (160-400) X10*3/uL MPV (9.4-12.3) fL Immature Gran % (Auto) (0.0-0.4) % Neut % (Auto) (45-73) % Lymph % (Auto) (20-40) % Dawson % (Auto) (2-11) % Eos % (Auto) (0-4) % Baso % (Auto) (0-2) % Lymph # (Auto) (1.2-4.9) X10*3/uL Dawson # (Auto) (0.1-1.2) X10*3/uL Eos # (Auto) (0.0-0.4) X10*3/uL Baso # (Auto) (0.0-0.2) X10*3/uL Abs Immat Gran (auto) (0.00-0.03) X10*3/uL Absolute Neuts (auto) (2.0-8.3) x10*3/uL Absolute Nucleated RBC (0.0-0.012) X10*3/uL Nucleated RBC % (auto) (0.0-0.2) /100WBC PT (10.0-13.1) SEC INR (0.9-1.1) Sodium (135-145) mmol/L Potassium (3.3-5.1) mmol/L Chloride (96-108) mmol/L Carbon Dioxide (22-29) mmol/L Anion Gap (12-20) BUN (9-16) mg/dL Creatinine (0.5-1.4) mg/dL Estim Creat Clear Calc Estimated GFR Random Glucose (60-115) mg/dL Calcium (8.4-10.2) mg/dL Magnesium (1.6-2.6) mg/dL Total Bilirubin (0.0-1.0) mg/dL Direct Bilirubin (0.0-0.5) mg/dL AST (5-31) U/L ALT (0-31) U/L Alkaline Phosphatase (39-117) U/L Troponin I High Sens (<3.5-17.0) ng/L Total Protein (6.5-8.0) g/dL Albumin (3.5-5.0) g/dL Lipase (8-78) U/L Urine Color Urine Appearance Urine pH (5.0-9.0) Ur Specific [place] (1.005-1.025) Urine Protein (Neg-Trace) mg/dL Urine Glucose (UA) (Negative) mg/dL Urine Ketones (Negative) mg/dL Urine Blood (Negative) Urine Nitrite (Negative) Ur Leukocyte Esterase (Negative) Stool Occult Blood POSITIVE (NEGATIVE) S. pyogenes GrpA PORTILLO (Negative) <ROMAINE Mensah - Last Filed: 12/27/22 15:09> Lab Results 12/27/22 12/27/22 12/27/22 Range/Units 15:48 15:48 15:48 WBC 4.3 L (4.8-10.8) X10*3/uL RBC 3.33 L (4.20-5.50) X10*6/uL Hgb 10.5 L (12.0-16.0) g/dl Hct 31.6 L (37.0-47.0) % MCV 94.9 (80.0-98.0) fL MCH 31.5 (27.0-33.0) pg MCHC 33.2 (31.0-35.0) g/dl RDW 13.7 (11.0-16.0) % Plt Count 133 L (160-400) X10*3/uL MPV 11.6 (9.4-12.3) fL Immature Gran % (Auto) 0.2 (0.0-0.4) % Neut % (Auto) 75.9 H (45-73) % Lymph % (Auto) 16.2 L (20-40) % Dawson % (Auto) 6.3 (2-11) % Eos % (Auto) 1.2 (0-4) % Baso % (Auto) 0.2 (0-2) % Lymph # (Auto) 0.7 L (1.2-4.9) X10*3/uL Dawson # (Auto) 0.3 (0.1-1.2) X10*3/uL Eos # (Auto) 0.1 (0.0-0.4) X10*3/uL Baso # (Auto) 0.0 (0.0-0.2) X10*3/uL Abs Immat Gran (auto) 0.01 (0.00-0.03) X10*3/uL Absolute Neuts (auto) 3.3 (2.0-8.3) x10*3/uL Absolute Nucleated RBC 0.000 (0.0-0.012) X10*3/uL Nucleated RBC % (auto) 0.0 (0.0-0.2) /100WBC PT 11.3 (10.0-13.1) SEC INR 1.0 (0.9-1.1) Sodium 140 (135-145) mmol/L Potassium 4.6 (3.3-5.1) mmol/L Chloride 103 (96-108) mmol/L Carbon Dioxide 30 H (22-29) mmol/L Anion Gap 12 (12-20) BUN 23 H (9-16) mg/dL Creatinine 0.87 (0.5-1.4) mg/dL Estim Creat Clear Calc 53.8 Estimated GFR > 60 Random Glucose 98 (60-115) mg/dL Calcium 9.5 (8.4-10.2) mg/dL Magnesium 2.0 (1.6-2.6) mg/dL Total Bilirubin 0.7 (0.0-1.0) mg/dL Direct Bilirubin 0.2 (0.0-0.5) mg/dL AST 20 (5-31) U/L ALT 16 (0-31) U/L Alkaline Phosphatase 95 (39-117) U/L Troponin I High Sens (<3.5-17.0) ng/L Total Protein 6.8 (6.5-8.0) g/dL Albumin 4.2 (3.5-5.0) g/dL Lipase 19 (8-78) U/L Urine Color Urine Appearance Urine pH (5.0-9.0) Ur Specific [place] (1.005-1.025) Urine Protein (Neg-Trace) mg/dL Urine Glucose (UA) (Negative) mg/dL Urine Ketones (Negative) mg/dL Urine Blood (Negative) Urine Nitrite (Negative) Ur Leukocyte Esterase (Negative) Stool Occult Blood (NEGATIVE) S. pyogenes GrpA PORTILLO (Negative) 12/27/22 12/27/22 12/27/22 Range/Units 15:48 15:49 16:16 WBC (4.8-10.8) X10*3/uL RBC (4.20-5.50) X10*6/uL Hgb (12.0-16.0) g/dl Hct (37.0-47.0) % MCV (80.0-98.0) fL MCH (27.0-33.0) pg MCHC (31.0-35.0) g/dl RDW (11.0-16.0) % Plt Count (160-400) X10*3/uL MPV (9.4-12.3) fL Immature Gran % (Auto) (0.0-0.4) % Neut % (Auto) (45-73) % Lymph % (Auto) (20-40) % Dawson % (Auto) (2-11) % Eos % (Auto) (0-4) % Baso % (Auto) (0-2) % Lymph # (Auto) (1.2-4.9) X10*3/uL Dawson # (Auto) (0.1-1.2) X10*3/uL Eos # (Auto) (0.0-0.4) X10*3/uL Baso # (Auto) (0.0-0.2) X10*3/uL Abs Immat Gran (auto) (0.00-0.03) X10*3/uL Absolute Neuts (auto) (2.0-8.3) x10*3/uL Absolute Nucleated RBC (0.0-0.012) X10*3/uL Nucleated RBC % (auto) (0.0-0.2) /100WBC PT (10.0-13.1) SEC INR (0.9-1.1) Sodium (135-145) mmol/L Potassium (3.3-5.1) mmol/L Chloride (96-108) mmol/L Carbon Dioxide (22-29) mmol/L Anion Gap (12-20) BUN (9-16) mg/dL Creatinine (0.5-1.4) mg/dL Estim Creat Clear Calc Estimated GFR Random Glucose (60-115) mg/dL Calcium (8.4-10.2) mg/dL Magnesium (1.6-2.6) mg/dL Total Bilirubin (0.0-1.0) mg/dL Direct Bilirubin (0.0-0.5) mg/dL AST (5-31) U/L ALT (0-31) U/L Alkaline Phosphatase (39-117) U/L Troponin I High Sens 5.0 (<3.5-17.0) ng/L Total Protein (6.5-8.0) g/dL Albumin (3.5-5.0) g/dL Lipase (8-78) U/L Urine Color Yellow Urine Appearance Clear Urine pH 5.5 (5.0-9.0) Ur Specific [place] <= 1.005 (1.005-1.025) Urine Protein Negative (Neg-Trace) mg/dL Urine Glucose (UA) Negative (Negative) mg/dL Urine Ketones Negative (Negative) mg/dL Urine Blood Negative (Negative) Urine Nitrite Negative (Negative) Ur Leukocyte Esterase Negative (Negative) Stool Occult Blood (NEGATIVE) S. pyogenes GrpA PORTILLO Negative (Negative) 12/27/22 Range/Units 17:56 WBC (4.8-10.8) X10*3/uL RBC (4.20-5.50) X10*6/uL Hgb (12.0-16.0) g/dl Hct (37.0-47.0) % MCV (80.0-98.0) fL MCH (27.0-33.0) pg MCHC (31.0-35.0) g/dl RDW (11.0-16.0) % Plt Count (160-400) X10*3/uL MPV (9.4-12.3) fL Immature Gran % (Auto) (0.0-0.4) % Neut % (Auto) (45-73) % Lymph % (Auto) (20-40) % Dawson % (Auto) (2-11) % Eos % (Auto) (0-4) % Baso % (Auto) (0-2) % Lymph # (Auto) (1.2-4.9) X10*3/uL Dawson # (Auto) (0.1-1.2) X10*3/uL Eos # (Auto) (0.0-0.4) X10*3/uL Baso # (Auto) (0.0-0.2) X10*3/uL Abs Immat Gran (auto) (0.00-0.03) X10*3/uL Absolute Neuts (auto) (2.0-8.3) x10*3/uL Absolute Nucleated RBC (0.0-0.012) X10*3/uL Nucleated RBC % (auto) (0.0-0.2) /100WBC PT (10.0-13.1) SEC INR (0.9-1.1) Sodium (135-145) mmol/L Potassium (3.3-5.1) mmol/L Chloride (96-108) mmol/L Carbon Dioxide (22-29) mmol/L Anion Gap (12-20) BUN (9-16) mg/dL Creatinine (0.5-1.4) mg/dL Estim Creat Clear Calc Estimated GFR Random Glucose (60-115) mg/dL Calcium (8.4-10.2) mg/dL Magnesium (1.6-2.6) mg/dL Total Bilirubin (0.0-1.0) mg/dL Direct Bilirubin (0.0-0.5) mg/dL AST (5-31) U/L ALT (0-31) U/L Alkaline Phosphatase (39-117) U/L Troponin I High Sens (<3.5-17.0) ng/L Total Protein (6.5-8.0) g/dL Albumin (3.5-5.0) g/dL Lipase (8-78) U/L Urine Color Urine Appearance Urine pH (5.0-9.0) Ur Specific [place] (1.005-1.025) Urine Protein (Neg-Trace) mg/dL Urine Glucose (UA) (Negative) mg/dL Urine Ketones (Negative) mg/dL Urine Blood (Negative) Urine Nitrite (Negative) Ur Leukocyte Esterase (Negative) Stool Occult Blood POSITIVE (NEGATIVE) S. pyogenes GrpA PORTILLO (Negative) <Geovanny Vegas MD - Last Filed: 12/27/22 18:30> Discharge Plan Discharge Clinical Impression: Lower GI bleed, Occult blood in stools, Normocytic anemia <ROMAINE Mensah - Last Filed: 12/27/22 15:09> Patient Disposition: Home, Self-Care <ROMAINE Mensah - Last Filed: 12/27/22 15:09> Additional Instructions: Continue taking medications as prescribed and as discussed at the last ED visit All your GI doctor you see if they want to move up your endoscopy and colonoscopy based on your symptoms Follow-up with your doctor in 2 days. Please return to the emergency department if your symptoms get worse or if you develop any symptoms that are concerning to you. <ROMAINE Mensah - Last Filed: 12/27/22 15:09> Prescriptions: No Action alprazolam 0.25 mg tablet 0.25 mg PO TID PRN (Reason: anxiety) 30 Days Qty: 90 1RF cholecalciferol (vitamin D3) 50 mcg (2,000 unit) tablet 50 mcg PO DAILY Qty: 90 0RF valsartan 80 mg tablet 80 mg PO BID Qty: 180 2RF Rx Instructions: New Dose famotidine 20 mg tablet 20 mg PO BID PRN (Reason: heartburn) 30 Days Qty: 60 1RF meclizine [Dramamine (meclizine)] 25 mg tablet 25 mg PO BID 5 Days Qty: 10 0RF acetaminophen 325 mg Tablet 325 mg PO QID PRN (Reason: Pain) polyethylene glycol 3350 [ClearLax] 17 gram/dose powder 17 g PO DAILY Qty: 238 0RF docusate sodium [Colace] 100 mg capsule 100 mg PO BID Qty: 20 0RF senna 8.6 mg capsule 8.6 mg PO BEDTIME Qty: 20 0RF peg 3350-electrolytes [GaviLyte-G] [id number] -5.86 gram recon soln 240 ml PO Q10M Qty: 4000 0RF Rx Instructions: until fecal you have a bowel movement dicyclomine 10 mg capsule 10 mg PO Q6H PRN (Reason: cramps) 10 Days Qty: 40 0RF ondansetron 4 mg tablet,disintegrating 4 mg PO Q8-12H PRN (Reason: nausea and vomiting) Qty: 14 0RF <ROMAINE Mensah - Last Filed: 12/27/22 15:09>
--- NOTE | 2022-12-27 15:06 | ECG_ITS ---
Test Reason : weakness Blood Pressure : / mmHG Vent. Rate : 090 BPM Atrial Rate : 090 BPM P-R Int : 218 ms QRS Dur : 086 ms QT Int : 362 ms P-R-T Axes : 044 -10 023 degrees QTc Int : 442 ms Sinus rhythm with 1st degree A-V block Inferior infarct , age undetermined Abnormal ECG When compared with ECG of 09-DEC-2022 06:44, Inferior infarct is now Present Referred By: Lauren Stout Electronically Signed By:Guillaume Callahan
[2022-12-27 15:58] LABS: MANUAL DIFF FLAG NO
[2022-12-27 16:09] LABS: IDNOW Serial# 08D9AD1C; Strep A Nucleic Acid Negative (Negative)
[2022-12-27 16:12] LABS: Prothrombin Time 11.3 SEC (10.0-13.1)
[2022-12-27 16:15] LABS: Alanine Aminotransferase 16 U/L (0-31); Albumin Level 4.2 g/dL (3.5-5.0); Alkaline Phosphatase 95 U/L (39-117); Anion Gap 12 (12-20); Aspartate Amino Transferase 20 U/L (5-31); Bilirubin Direct 0.2 mg/dL (0.0-0.5); Bilirubin Total 0.7 mg/dL (0.0-1.0); Blood Urea Nitrogen 23 mg/dL (9-16); Calcium 9.5 mg/dL (8.4-10.2); Carbon Dioxide 30 mmol/L (22-29); Chloride 103 mmol/L (96-108); Creatinine Clr Calc Pharmacy 53.8; Estimated Glomerular Filt Rate > 60; Glucose Random 98 mg/dL (60-115); Lipase 19 U/L (8-78); Potassium 4.6 mmol/L (3.3-5.1); Sodium 140 mmol/L (135-145); Total Protein 6.8 g/dL (6.5-8.0)
[2022-12-27 16:21] LABS: Basophils Percent Auto 0.2 % (0-2); Eosinophils Absolute Auto 0.1 X10*3/uL (0.0-0.4); Eosinophils Percent Auto 1.2 % (0-4); Hematocrit 31.6 % (37.0-47.0); Hemoglobin 10.5 g/dl (12.0-16.0); Imm Gran Abs Auto 0.01 X10*3/uL (0.00-0.03); Imm Gran Pct Auto 0.2 % (0.0-0.4); Lymphocytes Absolute Auto 0.7 X10*3/uL (1.2-4.9); Lymphocytes Percent Auto 16.2 % (20-40); Mean Corpuscular HGB Conc 33.2 g/dl (31.0-35.0); Mean Corpuscular Hemoglobin 31.5 pg (27.0-33.0); Mean Corpuscular Volume 94.9 fL (80.0-98.0); Mean Platelet Volume 11.6 fL (9.4-12.3); Monocytes Absolute Auto 0.3 X10*3/uL (0.1-1.2); Monocytes Percent Auto 6.3 % (2-11); Neutrophils Absolute Auto 3.3 x10*3/uL (2.0-8.3); Neutrophils Percent Auto 75.9 % (45-73); Platelet Count 133 X10*3/uL (160-400); Red Blood Count 3.33 X10*6/uL (4.20-5.50); Red Cell Distribution Width 13.7 % (11.0-16.0); White Blood Count 4.3 X10*3/uL (4.8-10.8)
[2022-12-27 16:26] LABS: Appearance Urine Clear; Color Urine Yellow; Glucose Urine UA Negative (Negative); Leukocyte Esterase Urine Negative (Negative); Nitrite Urine Negative (Negative); PH 5.5 (5.0-9.0); Specific Gravity - Urine <= 1.005 (1.005-1.025); Urine Blood Negative (Negative); Urine Ketones Negative (Negative); Urine Protein Negative (Neg-Trace)
[2022-12-27 17:37] VITALS: BP 138/88; PULSE 93; RESP 16; O2SAT 98
[2022-12-27 18:15] LABS: OBS Int Ctl Valid YES; OBS1 POSITIVE (NEGATIVE)
== END 2022-12-27 19:12 | disposition home or self-care (01) ==
PROVIDERS: Physician Assistant; Emergency Provider Emergency Medicine Emergency Medical Services; PCP Physician Assistant
DX: K92.2 Gastrointestinal hemorrhage, unspecified (principal); K92.1 Melena; D64.9 Anemia, unspecified; R94.31 Abnormal electrocardiogram [ECG] [EKG]; R53.1 Weakness; Z87.891 Personal history of nicotine dependence; Z20.822 Contact with and (suspected) exposure to COVID-19; Z20.828 Contact with and (suspected) exposure to other viral communicable diseases; Z79.899 Other long term (current) drug therapy
CPT/HCPCS: 36415; 80048; 80076; 81003; 82272; 83690; 83735; 84484; 85025; 85610; 87651; 93005; 99284

== ENCOUNTER 2022-12-29 10:41 | Emergency (ER) | payer MEDICARE, OTHER, SELFPAY ==
[2022-12-29 10:46] VITALS: BP 150/103; PULSE 100; RESP 19; TEMP 36.6; O2SAT 98; BMI 28.2
[2022-12-29 12:47] LABS: Basophils Percent Auto 0.5 % (0-2); Eosinophils Percent Auto 0.9 % (0-4); Hematocrit 33.7 % (37.0-47.0); Hemoglobin 11.1 g/dl (12.0-16.0); Imm Gran Abs Auto 0.02 X10*3/uL (0.00-0.03); Imm Gran Pct Auto 0.5 % (0.0-0.4); Lymphocytes Absolute Auto 0.8 X10*3/uL (1.2-4.9); Lymphocytes Percent Auto 17.2 % (20-40); MANUAL DIFF FLAG SCAN; Mean Corpuscular HGB Conc 32.9 g/dl (31.0-35.0); Mean Corpuscular Hemoglobin 31.3 pg (27.0-33.0); Mean Corpuscular Volume 94.9 fL (80.0-98.0); Mean Platelet Volume 11.3 fL (9.4-12.3); Monocytes Absolute Auto 0.3 X10*3/uL (0.1-1.2); Monocytes Percent Auto 6.6 % (2-11); Neutrophils Absolute Auto 3.3 x10*3/uL (2.0-8.3); Neutrophils Percent Auto 74.3 % (45-73); PLT CLUMP 1; Red Blood Count 3.55 X10*6/uL (4.20-5.50); Red Cell Distribution Width 13.8 % (11.0-16.0); SCAN SMEAR FLAG 1
[2022-12-29 12:49] LABS: Platelet Count 132 X10*3/uL (160-400); White Blood Count 4.4 X10*3/uL (4.8-10.8)
[2022-12-29 13:00] LABS: Alanine Aminotransferase 14 U/L (0-31); Albumin Level 4.3 g/dL (3.5-5.0); Alkaline Phosphatase 95 U/L (39-117); Anion Gap 12 (12-20); Aspartate Amino Transferase 17 U/L (5-31); Bilirubin Total 0.6 mg/dL (0.0-1.0); Blood Urea Nitrogen 22 mg/dL (9-16); Calcium 9.7 mg/dL (8.4-10.2); Carbon Dioxide 28 mmol/L (22-29); Chloride 107 mmol/L (96-108); Creatinine Clr Calc Pharmacy 55.5; Estimated Glomerular Filt Rate > 60; Glucose Random 101 mg/dL (60-115); Lipase 17 U/L (8-78); Potassium 4.4 mmol/L (3.3-5.1); Sodium 143 mmol/L (135-145); Total Protein 6.9 g/dL (6.5-8.0)
[2022-12-29 13:05] LABS: SLIDE REVIEW VERIFIED
--- NOTE | 2022-12-29 16:29 | ED.GENADULT ---
HPI - General Adult General Chief complaint: Abdominal Pain Stated complaint: abd pain Time Seen by Provider: 12/29/22 16:00 Source: patient, RN notes reviewed and old records reviewed Mode of arrival: ambulatory Limitations: no limitations History of Present Illness HPI narrative: 82-year-old female with past medical history significant for anxiety, osteoarthritis, diverticulitis, constipation, anemia, fatigue, hypertension, vertigo, presents for evaluation of abdominal pain. This is the patient's 6th visit in the last 1 month for GI related complaints. She has complained of left lower quadrant abdominal pain, bright red blood per rectum She has had 2 CT scans of the abdomen pelvis this month Patient believes that her medications are not working because she woke up with severe left lower abdominal pain that has improved somewhat but is still present. Her pain is currently a 5/10 She is due to see GI on 01/09/2023. She is currently taking Metamucil, Colace, dicyclomine for her abdominal pain, constipation Denies any fevers, chills Related Data Home Medications Medication Instructions Recorded Confirmed acetaminophen 325 mg tablet 325 mg PO QID PRN Pain 06/21/21 11/23/22 Previous Rx's Medication Instructions Recorded alprazolam 0.25 mg tablet 0.25 mg PO TID PRN anxiety 30 days 04/11/22 #90 tabs cholecalciferol (vitamin D3) 50 50 mcg PO DAILY #90 tabs 04/13/22 mcg (2,000 unit) tablet valsartan 80 mg tablet 80 mg PO BID #180 tabs 07/12/22 famotidine 20 mg tablet 20 mg PO BID PRN heartburn 30 days 09/21/22 #60 tabs ondansetron 4 mg disintegrating 4 mg PO Q8-12H PRN nausea and 11/04/22 tablet vomiting #14 tabs dicyclomine 10 mg capsule 10 mg PO Q6H PRN cramps 10 days 11/09/22 #40 caps meclizine 25 mg tablet (Dramamine 25 mg PO BID dizziness 5 days #10 12/06/22 (meclizine)) tabs docusate sodium 100 mg capsule 100 mg PO BID #20 caps 12/09/22 (Colace) polyethylene glycol 3350 17 17 g PO DAILY #238 grams 12/09/22 gram/dose oral powder (ClearLax) sennosides 8.6 mg capsule (senna) 8.6 mg PO BEDTIME #20 caps 12/09/22 peg 3350-electrolytes 236 240 ml PO Q10M #4,000 mL 12/11/22 gram-22.74 gram-6.74 gram-5.86 gram solution (GaviLyte-G) amoxicillin 875 mg-potassium 1 tab PO BID #14 tabs 12/29/22 clavulanate 125 mg tablet Allergies Allergy/AdvReac Type Severity Reaction Status Date / Time buspirone Allergy Intermediate Rash Verified 12/29/22 10:46 Sulfa (Sulfonamide Allergy Intermediate RASH Verified 12/29/22 10:46 Antibiotics) amoxicillin [From AUGMENTIN] Allergy Unknown PER H&P Verified 12/29/22 10:46 clavulanic acid Allergy Unknown PER H&P Verified 12/29/22 10:46 [From AUGMENTIN] garlic [GARLIC] Allergy Unknown PER H&P Verified 12/29/22 10:46 metronidazole [From FLAGYL] Allergy Unknown OCULAR Verified 12/29/22 10:46 MIGRAINES penicillamine Allergy Unknown Unknown Verified 12/29/22 10:46 ciprofloxacin AdvReac Intermediate neuropathic Verified 12/29/22 10:46 pain lisinopril AdvReac Intermediate Cough Verified 12/29/22 10:46 nitrofurantoin AdvReac Mild GI side Verified 12/29/22 10:46 effects environmental Allergy Unknown Unknown Uncoded 12/29/22 10:46 flagyl Allergy Unknown Unknown Uncoded 12/29/22 10:46 From KEFLEX Allergy Unknown RASH Uncoded 12/29/22 10:46 Metoprolol Tartrate Allergy Unknown Unknown Uncoded 12/29/22 10:46 Sulfacet-R Allergy Unknown Unknown Uncoded 12/29/22 10:46 Review of Systems Constitutional: Constitutional: Reports as per HPI, Denies chills, Denies fatigue, Denies fever(s) and Denies headache(s) ENT: Denies headache(s) Cardiovascular: Cardiovascular: Denies chest pain and Denies dyspnea Respiratory: Respiratory: Denies cough and Denies dyspnea Gastrointestinal: Gastrointestinal: Reports abdominal pain, Reports hematochezia, Reports constipation and Denies vomiting Genitourinary: Genitourinary: Denies dysuria Neurologic: Denies headache(s) and Denies focal weakness Endocrine: Endocrine: Denies fatigue PMFSH Past Medical History Medical History Anxiety Diverticulitis Heart murmur Irritable bowel Surgical History History of appendectomy History of tonsillectomy Family History Family History Father No problems noted. Mother No problems noted. Social History Social History Household Members: Children Housing: House Are you a primary dog daycare provider to a significant other at home: No Do you presently have visiting nurse or other home services: No Alcohol intake: never Patient Tobacco Use Status: Former Tobacco user e-Cigarette/Vaping Use: Never Used Second Hand Smoke Exposure: No Advance Directives: No Advance Directives Date on File: 11/21/22 service: No Current occupational status: retired Cognitive needs: No Hearing needs: No Vision needs: Yes (glasses) Physical Exam ED Vital Signs: Vital Signs - 24 hr 12/29/22 10:46 Temperature 98 F Pulse Rate 100 Respiratory Rate 19 Blood Pressure 150/103 H Pulse Oximetry 98 Oxygen Delivery Method Room Air BMI result Body Mass Index 28.2 Const General: healthy appearing, comfortable, no acute distress, alert and awake Nutritional Appearance: well nourished Orientation/consciousness: patient oriented x3 HENMT Head: Yes normocephalic and Yes atraumatic Throat: Yes posterior oropharynx normal Eyes Eyelids: Yes eyelids normal Conjunctivae: conjunctivae normal Sclerae: sclerae normal Corneas: corneas normal Pupils: Equal, round and reactive pupils present EOM: EOMs intact bilaterally Neck Neck: Yes full ROM Resp Effort & Inspection: normal respiratory effort, able to speak in complete sentences, no audible wheezes and not labored Auscultation: clear to auscultation bilaterally Cardio Rate: regular rate Rhythm: regular rhythm GI Inspection: No distended Palpation (GI): Soft to palpation, not firm, Tenderness to palpation present (GI) in the LLQ and Guarding due to palpation present (GI) Auscultation: normoactive bowel sounds Skin General skin exam: no rashes or lesions noted and elasticity normal Neuro General: patient oriented x3 Cranial nerves: Yes Equal, round and reactive pupils present and Yes Bilaterally intact EOM present Cognition (Neuro): normal cognition Extrem Other: Moving all extremities well without any obvious deformities Medical Decision Making Medical Decision Making [facility] Narrative: [age] and female presents for evaluation of persistent, crampy left lower abdominal pain. She had constipation with some episodes of bright red blood per rectum. The patient has intermittent episodes of watery stool. She is not septic, afebrile, no leukocytosis. I discussed possible x-ray imaging to constipation versus CT imaging to her diverticulitis. The patient reports that she has had 8 CT scans in the last 8 months ago for not CT scan. Given that she appears well will defer CT imaging. She has a history of diverticulitis and I feel it is appropriate to treat as such given her left lower abdominal pain with bright red blood per rectum and multiple ED visits for similar. She has allergies to numerous antibiotics including amoxicillin, Bactrim, metronidazole, ciprofloxacin. I discussed with her and she believes that her amoxicillin is all an adverse reaction due to upset stomach. Will start her on Augmentin twice daily for 7 days. She will take with food. She was strictly encouraged to stop immediately if she develops any kind of swelling, difficulty breathing or difficulty swallowing. Differential Diagnosis Abdominal pain Constipation Diverticulitis Colitis Lab Data 12/29/22 12:37 12/29/22 12:37 Labs: Lab Results 12/29/22 12/29/22 Range/Units 12:37 12:37 WBC 4.4 L (4.8-10.8) X10*3/uL RBC 3.55 L (4.20-5.50) X10*6/uL Hgb 11.1 L (12.0-16.0) g/dl Hct 33.7 L (37.0-47.0) % MCV 94.9 (80.0-98.0) fL MCH 31.3 (27.0-33.0) pg MCHC 32.9 (31.0-35.0) g/dl RDW 13.8 (11.0-16.0) % Plt Count 132 L (160-400) X10*3/uL MPV 11.3 (9.4-12.3) fL Immature Gran % (Auto) 0.5 H (0.0-0.4) % Neut % (Auto) 74.3 H (45-73) % Lymph % (Auto) 17.2 L (20-40) % [place] % (Auto) 6.6 (2-11) % Eos % (Auto) 0.9 (0-4) % Baso % (Auto) 0.5 (0-2) % Lymph # (Auto) 0.8 L (1.2-4.9) X10*3/uL [place] # (Auto) 0.3 (0.1-1.2) X10*3/uL Eos # (Auto) 0.0 (0.0-0.4) X10*3/uL Baso # (Auto) 0.0 (0.0-0.2) X10*3/uL Abs Immat Gran (auto) 0.02 (0.00-0.03) X10*3/uL Absolute Neuts (auto) 3.3 (2.0-8.3) x10*3/uL Absolute Nucleated RBC 0.000 (0.0-0.012) X10*3/uL Nucleated RBC % (auto) 0.0 (0.0-0.2) /100WBC Smear Tech's Comments VERIFIED Sodium 143 (135-145) mmol/L Potassium 4.4 (3.3-5.1) mmol/L Chloride 107 (96-108) mmol/L Carbon Dioxide 28 (22-29) mmol/L Anion Gap 12 (12-20) BUN 22 H (9-16) mg/dL Creatinine 0.83 (0.5-1.4) mg/dL Estim Creat Clear Calc 55.5 Estimated GFR > 60 Random Glucose 101 (60-115) mg/dL Calcium 9.7 (8.4-10.2) mg/dL Magnesium 2.0 (1.6-2.6) mg/dL Total Bilirubin 0.6 (0.0-1.0) mg/dL AST 17 (5-31) U/L ALT 14 (0-31) U/L Alkaline Phosphatase 95 (39-117) U/L Total Protein 6.9 (6.5-8.0) g/dL Albumin 4.3 (3.5-5.0) g/dL Lipase 17 (8-78) U/L Discharge Plan Discharge Clinical Impression: Abdominal pain Patient Disposition: Home, Self-Care Instructions: Diverticulitis (ED) Additional Instructions: Continue your home medication regimen as planned Add Augmentin twice daily for 7 days Take with food to prevent upset stomach Prescriptions: New amoxicillin-pot clavulanate 875-125 mg tablet 1 tab PO BID Qty: 14 0RF No Action alprazolam 0.25 mg tablet 0.25 mg PO TID PRN (Reason: anxiety) 30 Days Qty: 90 1RF cholecalciferol (vitamin D3) 50 mcg (2,000 unit) tablet 50 mcg PO DAILY Qty: 90 0RF valsartan 80 mg tablet 80 mg PO BID Qty: 180 2RF Rx Instructions: New Dose famotidine 20 mg tablet 20 mg PO BID PRN (Reason: heartburn) 30 Days Qty: 60 1RF meclizine [Dramamine (meclizine)] 25 mg tablet 25 mg PO BID 5 Days Qty: 10 0RF acetaminophen 325 mg Tablet 325 mg PO QID PRN (Reason: Pain) polyethylene glycol 3350 [ClearLax] 17 gram/dose powder 17 g PO DAILY Qty: 238 0RF docusate sodium [Colace] 100 mg capsule 100 mg PO BID Qty: 20 0RF senna 8.6 mg capsule 8.6 mg PO BEDTIME Qty: 20 0RF peg 3350-electrolytes [GaviLyte-G] 236-22.74-6.74 -5.86 gram recon soln 240 ml PO Q10M Qty: 4000 0RF Rx Instructions: until fecal you have a bowel movement dicyclomine 10 mg capsule 10 mg PO Q6H PRN (Reason: cramps) 10 Days Qty: 40 0RF ondansetron 4 mg tablet,disintegrating 4 mg PO Q8-12H PRN (Reason: nausea and vomiting) Qty: 14 0RF
[2022-12-29 17:13] VITALS: BP 137/86; PULSE 93; O2SAT 98
== END 2022-12-29 17:58 | disposition home or self-care (01) ==
PROVIDERS: Physician Assistant; Emergency Provider Emergency Medicine; PCP Physician Assistant
DX: R10.32 Left lower quadrant pain (principal); I10 Essential (primary) hypertension; Z79.899 Other long term (current) drug therapy
CPT/HCPCS: 36415; 80053; 83690; 83735; 85025; 99282; 99283

== ENCOUNTER 2023-01-09 12:29 | Day surgery (SDC) | payer MEDICARE, OTHER, SELFPAY ==
[2023-01-09 13:26] VITALS: BMI 28.1
[2023-01-09] MEDS: Sodium Phosphate,Mono-Dibasic 133 ML ENEMA PR ×2 (13:39→13:54)
[2023-01-09 13:43] VITALS: BP 116/83; PULSE 94; RESP 16; TEMP 36.8; O2SAT 96
[2023-01-09] MEDS: Lactated Ringers 1,000 ML 100 ML IVCONT (13:43)
--- NOTE | 2023-01-09 14:15 | HO.ANESPROP2 ---
Documented by User: Sloane Fischer NP 01/06/23 13:44 HPI - Anesthesia Eval Consult details Narrative: 82yo F for Upper Endoscopy and Colonoscopy Pt with abdominal pain with multiple [facility] ED/walk in visits. Also hx of anxiety. Atypical CP. EKG with new inferior infarct (possible inferior infarct in the past). High sensitivity trops negative. Followed by [facility] cardiology. Last seen 06/2022 with pending order for exercise stress. Not done as of 01/06/23. Case reviewed with Dr Bernabe. MENDEZ for eval DOS. [facility] Active Problems Active Problems: All Active Problems (Updated 12/30/22 @ 00:15 by Background Daemon) LLQ abdominal pain (Acute) Generalized anxiety disorder (Acute) Medication noncompliance due to cognitive impairment (Acute) Osteoarthritis of left knee (Acute) Osteoarthritis of right knee (Acute) RLQ abdominal pain (Acute) Diverticulitis (Acute) Sinusitis (Acute) Flu syndrome (Acute) Precordial chest pain (Acute) Anemia (Acute) Atypical chest pain (Acute) COVID-19 (Acute) Dilatation of thoracic aorta (Acute) Cold intolerance (Acute) Former smoker (Acute) Hydrocephalus (Acute) Pulmonary nodule (Acute) Abnormal lung sounds (Acute) Fever (Acute) Low vitamin D level (Acute) Neuropathy (Acute) Constipation (Acute) Bilateral calf pain (Acute) TIA (transient ischemic attack) (Acute) Nausea (Acute) Left lower quadrant abdominal pain (Acute) Dysuria (Acute) Cervical spine arthritis (Acute) Fatigue (Acute) Heart palpitations (Acute) Lower extremity weakness (Acute) HTN (hypertension) (Acute) Aortic stenosis (Acute) BPPV (benign paroxysmal positional vertigo) (Acute) Lumbar disc disease (Acute) Obstipation (Acute) Dark stools (Acute) Lower abdominal pain (Acute) Gastroenteritis (Acute) Neck pain on right side (Acute) URI (upper respiratory infection) (Acute) Pancytopenia (Chronic) Back pain (Acute) Cough (Acute) B12 deficiency (Acute) Chest pain (Acute) Rhinitis (Acute) Essential hypertension (Acute) Elevated BP without diagnosis of hypertension (Acute) Non-rheumatic aortic stenosis (Acute) Irritable bowel (Acute) Heart murmur (Acute) GERD (gastroesophageal reflux disease) (Acute) Diverticulitis (Acute) Anxiety (Acute) Postmenopausal atrophic vaginitis (Acute) Viral syndrome (Acute) Nausea (Acute) Diarrhea (Acute) Epigastric discomfort (Acute) Cat bite (Acute) Cat scratch (Acute) GERD (gastroesophageal reflux disease) (Acute) Past Medical History Medical History Anxiety Arthritis Diverticulitis GERD (gastroesophageal reflux disease) Heart murmur HTN (hypertension) Irritable bowel Neuropathy Family History Family History Father No problems noted. Mother No problems noted. Surgical History Surgical History History of appendectomy History of tonsillectomy Hx of colonoscopy Hx of esophagogastroduodenoscopy Social History Social History Household Members: Children Housing: House Are you a primary medicare nurse to a significant other at home: No Do you presently have visiting nurse or other home services: No Alcohol intake: never Patient Tobacco Use Status: Former Tobacco user Quit Date: 2013 e-Cigarette/Vaping Use: Never Used Second Hand Smoke Exposure: No Use of substances other than those prescribed or required for medical reasons: No Are you DNR?: Yes Advance Directives: No Advance Directives Information Provided: Yes Advance Directives Date on File: 11/21/22 service: No Current occupational status: retired Cognitive needs: No Hearing needs: No Vision needs: Yes (glasses) Meds Allergies Allergy/AdvReac Type Severity Reaction Status Date / Time buspirone Allergy Intermediate Rash Verified 01/09/23 13:24 Sulfa (Sulfonamide Allergy Intermediate RASH Verified 01/09/23 13:24 Antibiotics) amoxicillin [From AUGMENTIN] Allergy Unknown PER H&P Verified 01/09/23 13:24 clavulanic acid Allergy Unknown PER H&P Verified 01/09/23 13:24 [From AUGMENTIN] garlic [GARLIC] Allergy Unknown PER H&P Verified 01/09/23 13:24 metronidazole [From FLAGYL] Allergy Unknown OCULAR Verified 01/09/23 13:24 MIGRAINES penicillamine Allergy Unknown Unknown Verified 01/09/23 13:24 ciprofloxacin AdvReac Intermediate neuropathic Verified 01/09/23 13:24 pain lisinopril AdvReac Intermediate Cough Verified 01/09/23 13:24 nitrofurantoin AdvReac Mild GI side Verified 01/09/23 13:24 effects environmental Allergy Unknown Unknown Uncoded 12/29/22 10:46 flagyl Allergy Unknown Unknown Uncoded 12/29/22 10:46 From KEFLEX Allergy Unknown RASH Uncoded 12/29/22 10:46 Metoprolol Tartrate Allergy Unknown Unknown Uncoded 12/29/22 10:46 Sulfacet-R Allergy Unknown Unknown Uncoded 12/29/22 10:46 Home Medications Medication Instructions Recorded Confirmed Last Taken Type acetaminophen 325 mg tablet 325 mg PO QID PRN Pain 06/21/21 01/09/23 06/21/21 History alprazolam 0.25 mg tablet 0.25 mg PO BID 01/06/23 01/09/23 Unknown History fluticasone propionate 50 1 spray intranasal DAILY 01/06/23 01/09/23 Unknown History mcg/actuation nasal spray,suspension omeprazole 40 mg capsule,delayed 40 mg PO BID 01/06/23 01/09/23 Unknown History release simethicone 125 mg chewable tablet 125 mg PO QID PRN gas 01/06/23 01/09/23 Unknown History Exam Exam Date and Time: January 06, 2023 1327 Pertinent Lab Results Pertinent Lab Results: Laboratory Tests 12/29/22 12/29/22 12:37 12:37 WBC 4.4 L Hgb 11.1 L Hct 33.7 L Plt Count 132 L Sodium 143 Potassium 4.4 Chloride 107 Carbon Dioxide 28 BUN 22 H Creatinine 0.83 Narrative Narrative: EKG 12/2022 Vent. Rate : 090 BPM ? ? Atrial Rate : 090 BPM ?? P-R Int : 218 ms? QRS Dur : 086 ms ? ? QT Int : 362 ms ? ? ? P-R-T Axes : 044 -10 023 degrees ?? QTc Int : 442 ms ? Sinus rhythm with 1st degree A-V block Inferior infarct , age undetermined Abnormal ECG When compared with ECG of 09-DEC-2022 06:44, Inferior infarct is now Present ECHO 08/2022 Conclusions: - The left ventricular systolic function is normal.? The visually estimated ejection fraction is between 65-70%. ? - There is moderate aortic valve stenosis. ? Assessment and Plan Assessment Anesthesia Assessment: Chart Reviewed Documented by User: Marilyn Snyder DO 01/09/23 14:42 HPI - Anesthesia Eval Consult details Narrative: 82yo F for Upper Endoscopy and Colonoscopy Pt with abdominal pain with multiple [facility] [place]/walk in visits. Also hx of anxiety. Atypical CP. EKG with new inferior infarct (possible inferior infarct in the past). High sensitivity trops negative. Followed by [facility] cardiology. Last seen 06/2022 with pending order for exercise stress. Not done as of 01/06/23. [facility] Past Medical History Medical History Anxiety Arthritis Diverticulitis GERD (gastroesophageal reflux disease) Heart murmur HTN (hypertension) Irritable bowel Neuropathy Family History Family History Father No problems noted. Mother No problems noted. Family history of problems with anesthesia: No Surgical History Surgical History History of appendectomy History of tonsillectomy Hx of colonoscopy Hx of esophagogastroduodenoscopy History of Problems with Anesthesia: No Social History Social History Household Members: Children Housing: House Are you a primary medicare nurse to a significant other at home: No Do you presently have visiting nurse or other home services: No Alcohol intake: never Patient Tobacco Use Status: Former Tobacco user Quit Date: 2013 e-Cigarette/Vaping Use: Never Used Second Hand Smoke Exposure: No Use of substances other than those prescribed or required for medical reasons: No Are you DNR?: Yes Advance Directives: No Advance Directives Information Provided: Yes Advance Directives Date on File: 11/21/22 service: No Current occupational status: retired Cognitive needs: No Hearing needs: No Vision needs: Yes (glasses) Meds Allergies Allergy/AdvReac Type Severity Reaction Status Date / Time buspirone Allergy Intermediate Rash Verified 01/09/23 13:24 Sulfa (Sulfonamide Allergy Intermediate RASH Verified 01/09/23 13:24 Antibiotics) amoxicillin [From AUGMENTIN] Allergy Unknown PER H&P Verified 01/09/23 13:24 clavulanic acid Allergy Unknown PER H&P Verified 01/09/23 13:24 [From AUGMENTIN] garlic [GARLIC] Allergy Unknown PER H&P Verified 01/09/23 13:24 metronidazole [From FLAGYL] Allergy Unknown OCULAR Verified 01/09/23 13:24 MIGRAINES penicillamine Allergy Unknown Unknown Verified 01/09/23 13:24 ciprofloxacin AdvReac Intermediate neuropathic Verified 01/09/23 13:24 pain lisinopril AdvReac Intermediate Cough Verified 01/09/23 13:24 nitrofurantoin AdvReac Mild GI side Verified 01/09/23 13:24 effects environmental Allergy Unknown Unknown Uncoded 12/29/22 10:46 flagyl Allergy Unknown Unknown Uncoded 12/29/22 10:46 From KEFLEX Allergy Unknown RASH Uncoded 12/29/22 10:46 Metoprolol Tartrate Allergy Unknown Unknown Uncoded 12/29/22 10:46 Sulfacet-R Allergy Unknown Unknown Uncoded 12/29/22 10:46 Home Medications Medication Instructions Recorded Confirmed Last Taken Type acetaminophen 325 mg tablet 325 mg PO QID PRN Pain 06/21/21 01/09/23 06/21/21 History alprazolam 0.25 mg tablet 0.25 mg PO BID 01/06/23 01/09/23 Unknown History fluticasone propionate 50 1 spray intranasal DAILY 01/06/23 01/09/23 Unknown History mcg/actuation nasal spray,suspension omeprazole 40 mg capsule,delayed 40 mg PO BID 01/06/23 01/09/23 Unknown History release simethicone 125 mg chewable tablet 125 mg PO QID PRN gas 01/06/23 01/09/23 Unknown History Exam Exam Date and Time: January 09, 2023 141 Height,Weight and Vital Signs: Vital Signs Temperature 98.2 F 01/09/23 13:43 Pulse Rate 94 01/09/23 13:43 Respiratory Rate 16 01/09/23 13:43 Blood Pressure 116/83 01/09/23 13:43 Pulse Oximetry 96 01/09/23 13:43 Oxygen Delivery Method Room Air 01/09/23 13:43 Temperature 98.2 F 01/09/23 13:43 Pulse Rate 94 01/09/23 13:43 Respiratory Rate 16 01/09/23 13:43 Blood Pressure 116/83 01/09/23 13:43 Pulse Oximetry 96 01/09/23 13:43 Oxygen Delivery Method Room Air 01/09/23 13:43 Height 5 ft 6 in Weight 78.925 kg Airway Mallampati Class: III TM Dist: >3cm Neck ROM: Full Denture: Upper and Lower Heart: S1S2 Lungs: CTAB Assessment and Plan Final Anesthetic Review Family History of Problems with Anesthesia: No History of Problems with Anesthesia: No NPO: Yes ASA Class: III Final Preanesthetic Review: No Changes in Pt Med Stat, Meds/Allgs Chart Reviewed, Consent Obtained/Reviewed, Anes Risks/Benef Reviewed and DNR Form (If Appl.) (DNR will be reversed until discharge from PACU on 01/09/23. Reversal form signed.) Patient Risk: Intermediate Procedure Risk: Low Anesthetic Plan Anesthetic Plan: MAC: and Agree w/ Assess. and Plan Disposition: Standard PACU
[2023-01-09 15:32] VITALS: BP 122/72; PULSE 81; RESP 17; TEMP 37.1; O2SAT 98
--- NOTE | 2023-01-09 15:41 | PM.OP ---
Brief Operative Note Date of Service: 01/09/23 Pre-op diagnosis: GERD, Abdominal pain, Heme + stool Post-op diagnosis: other (Hiatal hernia, Diverticulosis, Internal hemorrhoids) Procedure: EGD, Colonoscopy to the cecum Surgeon: Anatoliy Escobar Anesthesia: MAC Was an Fire Production Operator used for this Procedure?: No Estimated blood loss (mL): 0 Pathology: none sent Condition: stable Disposition: PACU
[2023-01-09 15:47] VITALS: BP 127/77; PULSE 87; RESP 16; TEMP 36.3; O2SAT 96
--- NOTE | 2023-01-10 02:52 | OP_ITS ---
DATE OF SERVICE: 01/09/2023 SURGEON: Anatoliy Escobar MD INDICATIONS: The patient presents for evaluation of gastroesophageal reflux, chronic abdominal pain, and heme-positive stool. Full consent has been obtained from her for this, including risks of bleeding and perforation. PREOPERATIVE DIAGNOSIS: POSTOPERATIVE DIAGNOSIS: PROCEDURE PERFORMED: Esophagogastroduodenoscopy and colonoscopy to the cecum. ESTIMATED BLOOD LOSS: COMPLICATIONS: ANESTHESIA: Monitored anesthesia care. ASSISTANTS: SPECIMENS: PREOPERATIVE DIAGNOSES: Gastroesophageal reflux, heme-positive stool, abdominal pain. POSTOPERATIVE DIAGNOSES: Gastroesophageal reflux, heme-positive stool, abdominal pain, small hiatal hernia, diverticulosis, internal hemorrhoids. DESCRIPTION OF PROCEDURE: The patient was placed in the left lateral decubitus position. The Olympus video gastroscope was passed in the posterior oropharynx and upper esophagus under direct vision. The scope was passed slowly to the distal esophagus. The gastroesophageal junction appeared at 36 cm. There was some minimal irregularity consistent with reflux, but no evidence of esophagitis nor any definitive evidence of Aldana's esophagus. The scope entered the stomach. There was a small hiatal hernia. The scope was advanced to the pylorus and the duodenum was cannulated to the descending portion. The duodenum including the bulb appeared normal without mass or ulceration. The scope was withdrawn back in the stomach. The gastric antrum and body had some areas of erythema but no evidence of any erosions, ulcerations, nor mass. There was good peristalsis. The scope was retroflexed visualizing the proximal stomach carefully, which appeared normal, without any sign of mass or ulceration. The scope was straightened. I did not obtain biopsies from the stomach nor duodenum given that previous biopsies had been unremarkable in regard to celiac disease and H pylori. The scope was withdrawn back to the esophagus. The esophageal mucosa appeared normal. There was no sign of any esophagitis nor any proximal esophageal lesions. The scope was withdrawn from the patient. She was turned around for the colonoscopy. The digital rectal exam revealed no abnormalities. The Olympus video pediatric colonoscope was entered into the rectum and advanced to the cecum. Advancement was somewhat difficult due to a somewhat limited prep and a redundant colon with probable adhesions. However, once in the cecum, I did identify cecal pouch and a normal-appearing ileocecal valve after copious irrigation and suctioning. I was able to obtain a good look at the cecum, which appeared normal. The ileocecal valve appeared normal. The scope was then slowly withdrawn assessing all mucosal surfaces carefully. After copious irrigation and suctioning throughout the colon, a good inspection was made. I did not visualize any sign of polyps, colitis, nor angiodysplasia. In the rectum, the scope was retroflexed visualizing internal hemorrhoids, but no other pathology. The rectal mucosa appeared normal. The scope was straightened. Of note, there was a moderate amount of sigmoid diverticulosis. The scope was withdrawn from the patient. She tolerated the procedures well and was returned to the recovery area in stable condition. IMPRESSION: 1. Small hiatal hernia, gastroesophageal reflux. 2. Diverticulosis. 3. Internal hemorrhoids. PLAN: At this point the patient will continue her symptomatic regimen for reflux and irritable bowel syndrome. Unfortunately, she has continued with chronic GI symptoms and abdominal pain despite multiple trials of different medications and reassurance . I did advise her and her son of the normal studies today, as well as other studies including CT scans and laboratories. I will plan to see her again in the office on a p.r.n. basis. MD MILI Mcnulty/JUAN / [id number] MTDD
== END 2023-01-09 16:18 | disposition home or self-care (01) ==
PROVIDERS: PCP Physician Assistant; Visit Provider Internal Medicine
PROC: (CPT 45378; principal; 2023-01-09 12:30)
DX: R19.5 Other fecal abnormalities (principal); Z86.010 Personal history of colon polyps; K57.30 Diverticulosis of large intestine without perforation or abscess without bleeding; K64.8 Other hemorrhoids; K58.1 Irritable bowel syndrome with constipation; R10.32 Left lower quadrant pain; G89.29 Other chronic pain; K21.9 Gastro-esophageal reflux disease without esophagitis; K44.9 Diaphragmatic hernia without obstruction or gangrene; J44.9 Chronic obstructive pulmonary disease, unspecified; Z79.51 Long term (current) use of inhaled steroids; Z79.899 Other long term (current) drug therapy; Z88.2 Allergy status to sulfonamides; Z88.8 Allergy status to other drugs, medicaments and biological substances; Z66 Do not resuscitate
CPT/HCPCS: 45378; 43235; J2370

== ENCOUNTER 2023-01-12 10:26 | Emergency (ER) | payer MEDICARE, OTHER, SELFPAY ==
[2023-01-12 10:33] VITALS: BP 137/91; PULSE 83; RESP 16; TEMP 35.8; O2SAT 96; BMI 29.1
--- NOTE | 2023-01-12 11:05 | ED_ITS ---
HPI - Wound/Laceration General Chief Complaint: Wound/Laceration Stated Complaint: R pinky inj Time Seen by Provider: 01/12/23 10:42 Source: patient Mode of arrival: ambulatory Limitations: no limitations History of Present Illness HPI narrative: 82-year-old female here with complaints of laceration to the right 5th finger which occurred last night at 19:00. Patient reports she was opening up a bottle of soda in her hand slipped causin the edge of the soda ring to cut her finger. She immediately washed it with soap and water and apply dressing. This morning when she woke up she noticed the site was still bleeding prompting her to come to the emergency room. Tetanus UTD. No complaints of weakness, numbness, tingling of the extremity. Patient is right handed Related Data Home Medications Medication Instructions Recorded Confirmed acetaminophen 325 mg tablet 325 mg PO QID PRN Pain 06/21/21 01/09/23 alprazolam 0.25 mg tablet 0.25 mg PO BID 01/06/23 01/09/23 fluticasone propionate 50 1 spray intranasal DAILY 01/06/23 01/09/23 mcg/actuation nasal spray,suspension omeprazole 40 mg capsule,delayed 40 mg PO BID 01/06/23 01/09/23 release simethicone 125 mg chewable tablet 125 mg PO QID PRN gas 01/06/23 01/09/23 Previous Rx's Medication Instructions Recorded cholecalciferol (vitamin D3) 50 50 mcg PO DAILY #90 tabs 04/13/22 mcg (2,000 unit) tablet valsartan 80 mg tablet 80 mg PO BID #180 tabs 07/12/22 famotidine 20 mg tablet 20 mg PO BID PRN heartburn 30 days 09/21/22 #60 tabs ondansetron 4 mg disintegrating 4 mg PO Q8-12H PRN nausea and 11/04/22 tablet vomiting #14 tabs dicyclomine 10 mg capsule 10 mg PO Q6H PRN cramps 10 days 01/04/23 #40 caps docusate sodium 100 mg capsule 100 mg PO BID #20 caps 01/08/23 (Colace) Allergies Allergy/AdvReac Type Severity Reaction Status Date / Time buspirone Allergy Intermediate Rash Verified 01/09/23 13:24 Sulfa (Sulfonamide Allergy Intermediate RASH Verified 01/09/23 13:24 Antibiotics) amoxicillin [From AUGMENTIN] Allergy Unknown PER H&P Verified 01/09/23 13:24 clavulanic acid Allergy Unknown PER H&P Verified 01/09/23 13:24 [From AUGMENTIN] garlic [GARLIC] Allergy Unknown PER H&P Verified 01/09/23 13:24 metronidazole [From FLAGYL] Allergy Unknown OCULAR Verified 01/09/23 13:24 MIGRAINES penicillamine Allergy Unknown Unknown Verified 01/09/23 13:24 ciprofloxacin AdvReac Intermediate neuropathic Verified 01/09/23 13:24 pain lisinopril AdvReac Intermediate Cough Verified 01/09/23 13:24 nitrofurantoin AdvReac Mild GI side Verified 01/09/23 13:24 effects environmental Allergy Unknown Unknown Uncoded 12/29/22 10:46 flagyl Allergy Unknown Unknown Uncoded 12/29/22 10:46 From KEFLEX Allergy Unknown RASH Uncoded 12/29/22 10:46 Metoprolol Tartrate Allergy Unknown Unknown Uncoded 12/29/22 10:46 Sulfacet-R Allergy Unknown Unknown Uncoded 12/29/22 10:46 Review of Systems Review of Systems: Yes all other systems are reviewed and are negative Constitutional: Constitutional: Reports no additional constitutional complaints, Denies body ache(s), Denies chills, Denies fever(s), Denies headache(s) and Denies weakness Eyes: Eyes: Reports no additional eye complaints and Denies change in vision ENT: Reports system reviewed and no additional complaints, except as documented, Denies dizziness, Denies headache(s), Denies nasal congestion, Denies nasal discharge and Denies neck pain Cardiovascular: Cardiovascular: Reports no additional cardiovascular complaints, Denies chest pain, Denies leg edema and Denies dyspnea Respiratory: Respiratory: Reports no additional respiratory complaints, Denies cough and Denies dyspnea Gastrointestinal: Gastrointestinal: Reports no additional gastrointestinal complaints, Denies abdominal pain, Denies diarrhea, Denies nausea and Denies vomiting Genitourinary: Genitourinary: Reports no additional female genitourinary complaints and Denies urinary incontinence Musculoskeletal: Musculoskeletal: Reports no additional musculoskeletal complaints, Denies back pain, Denies arthralgias, Denies joint swelling, Denies neck pain, Denies numbness and Denies tingling Integumentary/Breasts: Skin/Breast: Reports system reviewed and no additional complaints, except as docu, Denies rash and Reports wounds Neurologic: Reports system reviewed and no additional complaints, except as documented, Denies Abnormal speech present, Denies dizziness, Denies headache(s), Denies numbness, Denies tingling and Denies weakness PMFSH Past Medical History Attestation statement: The following information was validated with the patient. Source: old records reviewed and nursing notes reviewed Medical History Anxiety Arthritis Diverticulitis GERD (gastroesophageal reflux disease) Heart murmur HTN (hypertension) Irritable bowel Neuropathy Surgical History History of appendectomy History of tonsillectomy Hx of colonoscopy Hx of esophagogastroduodenoscopy Family History Family History Father No problems noted. Mother No problems noted. Social History Social History Household Members: Children Housing: House Are you a primary md do resident urgent care to a significant other at home: No Do you presently have visiting nurse or other home services: No Alcohol intake: never Patient Tobacco Use Status: Former Tobacco user Quit Date: 2013 e-Cigarette/Vaping Use: Never Used Second Hand Smoke Exposure: No Advance Directives: No Advance Directives Date on File: 11/21/22 service: No Current occupational status: retired Cognitive needs: No Hearing needs: No Vision needs: Yes (glasses) Physical Exam Vital Signs: Vital Signs: Last Vital Signs Temp 96.4 F L 01/12/23 10:33 Pulse 83 01/12/23 10:33 Resp 16 01/12/23 10:33 BP 137/91 H 01/12/23 10:33 Pulse Ox 96 01/12/23 10:33 O2 Del Method Room Air 01/12/23 10:33 BMI result Body Mass Index 29.1 Const: General: cooperative, healthy appearing, comfortable and no acute distress Orientation/consciousness: patient oriented x3 Limitations: no limitations HEENT: Head: Yes normal to inspection Ears: hearing grossly normal bilaterally General nose exam: Normal external nose present Face and sinus: Yes normal facial exam Mouth: Normal oral and palatal mucosa present Throat: Yes posterior oropharynx normal Eyes: General: appearance normal, both eyes and all related structures Pupils: Equal, round and reactive pupils present Neck: Neck: Yes normal visual inspection Chest: Chest palpation & inspection: normal inspection of the chest Resp: Effort & Inspection: normal respiratory effort Auscultation: clear to auscultation bilaterally Cardio: Rate: regular rate Rhythm: regular rhythm Peripheral pulses: Peripheral pulses 2+ throughout GI: Inspection: Yes normal to inspection Palpation (GI): Soft to palpation and nontender Auscultation: normal bowel sounds Back/Spine/Pelvis: Thoracic/Lumbar Spine: thoracic and lumbar spine normal to inspection Skin: General skin exam: no rashes or lesions noted Neuro: General: patient oriented x3, no focal motor deficits and normal sensation to monofilament Cranial nerves: Yes Equal, round and reactive pupils present Cognition (Neuro): normal cognition Speech: No Abnormal speech present Gait exam (Neuro): Normal gait present Motor exam (neuro): 5/5 motor strength present throughout Extrem: Other: to the volar aspect of the fifth digit of the right hand there is a very superf icial laceration 1cm with bleeding controlled. FROM of the digit. CMS intact distally Medical Decision Making Medical Decision Making MDM Narrative: 82-year-old female [id number] here with laceration to the right 5th finger which occurred last evening at 19:00 from a soda bottle. Patient immediately cleaned the area but is here because she is concerned that there is still some bleeding from the site. Patient with superficial laceration to the volar aspect of the right 5th digit with bleeding that is controlled. Full range of motion of the digit. Tetanus is up-to-date. The site was irrigated extensively with 1 L of saline and Betadine. A topical dressing was placed. We reviewed wound care at home. Differential Diagnosis Differential Diagnoses: The differential diagnosis associated with the presentation includes Discharge Plan Discharge Clinical Impression: Finger laceration Patient Disposition: Home, Self-Care Instructions: Finger Laceration (ED) Additional Instructions: leave the dressing in place for 2 days then remove and wash site daily with soap and water Prescriptions: No Action cholecalciferol (vitamin D3) 50 mcg (2,000 unit) tablet 50 mcg PO DAILY Qty: 90 0RF valsartan 80 mg tablet 80 mg PO BID Qty: 180 2RF Rx Instructions: New Dose famotidine 20 mg tablet 20 mg PO BID PRN (Reason: heartburn) 30 Days Qty: 60 1RF dicyclomine 10 mg capsule 10 mg PO Q6H PRN (Reason: cramps) 10 Days Qty: 40 0RF docusate sodium [Colace] 100 mg capsule 100 mg PO BID Qty: 20 0RF acetaminophen 325 mg Tablet 325 mg PO QID PRN (Reason: Pain) omeprazole 40 mg Capsule,Delayed Release(Dr/Ec) 40 mg PO BID alprazolam 0.25 mg Tablet 0.25 mg PO BID simethicone 125 mg Tablet,Chewable 125 mg PO QID PRN (Reason: gas) fluticasone propionate [Flonase] 50 mcg/actuation Martinez,Suspension 1 spray INTRANASAL DAILY Rx Instructions: administer into each nostril ondansetron 4 mg tablet,disintegrating 4 mg PO Q8-12H PRN (Reason: nausea and vomiting) Qty: 14 0RF Referrals: Nick Gomez PA-C [Primary Care Provider] - 1 week Interventions: ED Discharge Assessment Last Done: 01/12/23 11:29
== END 2023-01-12 11:30 | disposition home or self-care (01) ==
PROVIDERS: Emergency Provider Emergency Medicine; PCP Physician Assistant
DX: S61.216A Laceration without foreign body of right little finger without damage to nail, initial encounter (principal); W26.8XXA Contact with other sharp object(s), not elsewhere classified, initial encounter; Y93.9 Activity, unspecified; Y92.009 Unspecified place in unspecified non-institutional (private) residence as the place of occurrence of the external cause; Y99.9 Unspecified external cause status
CPT/HCPCS: 99282; 99283

== ENCOUNTER 2023-01-24 15:34 | Emergency (ER) | payer MEDICARE, OTHER, SELFPAY ==
[2023-01-24 16:25] VITALS: BP 149/81; PULSE 93; RESP 18; TEMP 36.9; O2SAT 93; BMI 28.2
--- NOTE | 2023-01-24 18:27 | ED.GENADULT ---
HPI - General Adult General Chief complaint: General Medical Stated complaint: itchiness on body Time Seen by Provider: 01/24/23 18:16 Source: patient Mode of arrival: ambulatory Limitations: no limitations History of Present Illness HPI narrative: Patient comes to the emergency room complaining of itchiness on her skin on the face neck upper back and chest. Patient has no rash. And states it has been present for about a week. Also, patient complaining of postnasal drip that has been getting worse over the last week. Patient states that she has prescribed Laurel and Flonase but has not used it. Patient ran out of Laurel. Patient denies any chest pain or shortness of breath. Related Data Home Medications Medication Instructions Recorded Confirmed acetaminophen 325 mg tablet 325 mg PO QID PRN Pain 06/21/21 01/23/23 alprazolam 0.25 mg tablet 0.25 mg PO BID 01/06/23 01/23/23 omeprazole 40 mg capsule,delayed 40 mg PO BID 01/06/23 01/23/23 release simethicone 125 mg chewable tablet 125 mg PO QID PRN gas 01/06/23 01/23/23 citalopram 10 mg tablet 5 mg PO BEDTIME 01/23/23 01/23/23 Previous Rx's Medication Instructions Recorded valsartan 80 mg tablet 80 mg PO BID #180 tabs 07/12/22 famotidine 20 mg tablet 20 mg PO BID PRN heartburn 30 days 09/21/22 #60 tabs dicyclomine 10 mg capsule 10 mg PO Q6H PRN cramps 10 days 01/04/23 #40 caps docusate sodium 100 mg capsule 100 mg PO BID #20 caps 01/08/23 (Colace) cholecalciferol (vitamin D3) 50 50 mcg PO DAILY #90 tabs 01/23/23 mcg (2,000 unit) tablet fluticasone propionate 50 1 spray intranasal DAILY 30 days 01/23/23 mcg/actuation nasal #16 grams spray,suspension ondansetron HCl 4 mg tablet 4 mg PO Q8H PRN nausea and 01/23/23 vomiting 10 days #30 tabs albuterol sulfate 90 mcg/actuation 1 inh inhalation QID PRN shortness 01/24/23 aerosol inhaler of breath or wheezing #6.7 grams betamethasone dipropionate 0.05 % 1 appl topical BID PRN skin 01/24/23 lotion irritation #60 mL fexofenadine 180 mg tablet 180 mg PO Q24H #30 tabs 01/24/23 (Laurel Allergy) hydroxyzine HCl 25 mg tablet 25 mg PO TID PRN nausea and 01/24/23 vomiting #14 tabs Allergies Allergy/AdvReac Type Severity Reaction Status Date / Time buspirone Allergy Intermediate Rash Verified 01/24/23 10:01 Sulfa (Sulfonamide Allergy Intermediate RASH Verified 01/24/23 10:01 Antibiotics) amoxicillin [From AUGMENTIN] Allergy Unknown PER H&P Verified 01/24/23 10:01 clavulanic acid Allergy Unknown PER H&P Verified 01/24/23 10:01 [From AUGMENTIN] garlic [GARLIC] Allergy Unknown PER H&P Verified 01/24/23 10:01 metronidazole [From FLAGYL] Allergy Unknown OCULAR Verified 01/24/23 10:01 MIGRAINES penicillamine Allergy Unknown Unknown Verified 01/24/23 10:01 ciprofloxacin AdvReac Intermediate neuropathic Verified 01/24/23 10:01 pain lisinopril AdvReac Intermediate Cough Verified 01/24/23 10:01 nitrofurantoin AdvReac Mild GI side Verified 01/24/23 10:01 effects environmental Allergy Unknown Unknown Uncoded 01/24/23 10:01 flagyl Allergy Unknown Unknown Uncoded 01/24/23 10:01 From KEFLEX Allergy Unknown RASH Uncoded 01/24/23 10:01 Metoprolol Tartrate Allergy Unknown Unknown Uncoded 01/24/23 10:01 Sulfacet-R Allergy Unknown Unknown Uncoded 01/24/23 10:01 Review of Systems Review of Systems: Constitutional : No Weight loss, No Fever, No Chills, No Night Sweats, No Fatigue, No Malaise ENT/Mouth : No Hearing loss, No Ear Pain, No Nasal Congestion, No Sinus Pain, No Hoarseness, No sore throat, No Rhinorrhea, No Swallowing Difficulty Eyes: No Eye Pain, No Swelling, No Redness, No Foreign Body, No Discharge, No Vision Changes Cardiovascular : No Chest Pain, No SOB, No Dyspnea on Exertion, No Orthopnea, No Edema, No Palpitations Respiratory : No Cough, No Sputum, No Wheezing, No Smoke Exposure, No Dyspnea Gastrointestinal : No Nausea, No Vomiting, No Diarrhea, No Constipation, No abdominal Pain, No Hematochezia, No Melena Genitourinary : no irregular bleeding, No Dysuria, No Urinary Frequency, No Hematuria, No Urinary Incontinence, No Urgency, No Flank Pain, No Urinary Flow Changes, No Hesitancy Musculoskeletal : No joint pain, No Myalgias, No Joint Swelling Skin : No Skin Lesions, No rash Neuro : No Weakness, No Numbness, No Paresthesias, No Loss of Consciousness, No Dizziness, No Headache Psych : No Anxiety/Panic, No Depression, No SI/HI/AH/VH, No Social Issues, Heme/Lymph: No Bruising, No Bleeding,No Lymphadenopathy Endocrine : No Polyuria, No Polydipsia, No Temperature Intolerance [facility] Past Medical History Medical History Anxiety Arthritis Diverticulitis GERD (gastroesophageal reflux disease) Heart murmur HTN (hypertension) Irritable bowel Neuropathy Surgical History History of appendectomy History of tonsillectomy Hx of colonoscopy Hx of esophagogastroduodenoscopy Family History Family History Father No problems noted. Mother No problems noted. Social History Social History Household Members: Children Housing: House Are you a primary home health aide caregiver to a significant other at home: No Do you presently have visiting nurse or other home services: No Alcohol intake: never Patient Tobacco Use Status: Former Tobacco user Quit Date: 2013 e-Cigarette/Vaping Use: Never Used Second Hand Smoke Exposure: No Advance Directives Date on File: 11/21/22 service: No Current occupational status: retired Cognitive needs: No Hearing needs: No Vision needs: Yes (glasses) Physical Exam ED Vital Signs: Vital Signs - 24 hr 01/24/23 16:25 Temperature 98.4 F Pulse Rate 93 Respiratory Rate 18 Blood Pressure 149/81 H Pulse Oximetry 93 Oxygen Delivery Method Room Air BMI result Body Mass Index 28.2 Medical Decision Making Medical Decision Making MDM Narrative: -patient's physical exam is normal. Patient does not seem to have dry skin, no rash -discussed with the patient that it is possible that her symptoms may be related to her seasonal allergies. Discharge Plan Discharge Clinical Impression: Itchy skin Patient Disposition: Home, Self-Care Instructions: Itchy Skin (ED) Additional Instructions: Please follow-up with your primary care physician tomorrow. If you have any worsening or new symptoms, please return to the emergency room or call 911 Prescriptions: New hydroxyzine HCl 25 mg tablet 25 mg PO TID PRN (Reason: nausea and vomiting) Qty: 14 0RF fexofenadine [Laurel Allergy] 180 mg tablet 180 mg PO Q24H Qty: 30 0RF No Action valsartan 80 mg tablet 80 mg PO BID Qty: 180 2RF Rx Instructions: New Dose famotidine 20 mg tablet 20 mg PO BID PRN (Reason: heartburn) 30 Days Qty: 60 1RF dicyclomine 10 mg capsule 10 mg PO Q6H PRN (Reason: cramps) 10 Days Qty: 40 0RF docusate sodium [Colace] 100 mg capsule 100 mg PO BID Qty: 20 0RF acetaminophen 325 mg Tablet 325 mg PO QID PRN (Reason: Pain) omeprazole 40 mg Capsule,Delayed Release(Dr/Ec) 40 mg PO BID alprazolam 0.25 mg Tablet 0.25 mg PO BID simethicone 125 mg Tablet,Chewable 125 mg PO QID PRN (Reason: gas) citalopram 10 mg tablet 5 mg PO BEDTIME fluticasone propionate 50 mcg/actuation spray,suspension 1 spray INTRANASAL DAILY 30 Days Qty: 16 3RF Rx Instructions: administer into each nostril ondansetron HCl 4 mg tablet 4 mg PO Q8H PRN (Reason: nausea and vomiting) 10 Days Qty: 30 0RF cholecalciferol (vitamin D3) 50 mcg (2,000 unit) tablet 50 mcg PO DAILY Qty: 90 3RF betamethasone dipropionate 0.05 % lotion 1 appl topical BID PRN (Reason: skin irritation) Qty: 60 0RF albuterol sulfate 90 mcg/actuation HFA aerosol inhaler 1 inh inhalation QID PRN (Reason: shortness of breath or wheezing) Qty: 6.7 0RF
== END 2023-01-24 18:40 | disposition home or self-care (01) ==
LOC: HO.ED 18:38
PROVIDERS: Emergency Provider Emergency Medicine; PCP Physician Assistant
DX: L29.9 Pruritus, unspecified (principal); R01.1 Cardiac murmur, unspecified; K21.9 Gastro-esophageal reflux disease without esophagitis; I10 Essential (primary) hypertension; M19.90 Unspecified osteoarthritis, unspecified site
CPT/HCPCS: 99282; 99283

== ENCOUNTER 2023-01-27 09:24 | Emergency (ER) | payer MEDICARE, OTHER, SELFPAY ==
--- NOTE | ~2023-01-27 | US_ITS ---
EXAMINATION: US ABDOMEN COMPLETE CLINICAL INFORMATION: Left-sided abdominal pain, history of AAA. COMPARISON: None available. TECHNIQUE: Real-time imaging of the abdominal viscera. FINDINGS: PANCREAS: Normal. ABDOMINAL AORTA: The proximal and distal segments are normal in caliber. There is a mid abdominal aortic aneurysm measuring 2.9 x 3.0 cm. INFERIOR VENA CAVA: Visualized portions are normal. LIVER: There is anechoic cyst right lobe measuring 1.5 x 1.0 x 1.5 cm. The liver is borderline enlarged in size measuring 17 cm.. The liver contour is normal. Parenchymal echogenicity is normal. No focal hepatic lesion. There is no intrahepatic biliary duct dilatation seen. GALLBLADDER: Normal. The gallbladder is physiologically distended without evidence of stones, sludge, polyps, wall thickening or pericholecystic fluid. COMMON BILE DUCT: Normal in caliber measuring 0.2 cm in diameter. RIGHT KIDNEY: Normal. No hydronephrosis. No renal calculi or focal parenchymal lesions. The kidney measures 10.5 cm in maximum dimension. LEFT KIDNEY: There is anechoic cyst midpole measuring 0.5 x 0.5 x 0.4 cm. There is mild pelvic fullness. No hydronephrosis. No renal calculi or focal parenchymal lesions. The kidney measures 11.8 cm in maximum dimension. SPLEEN: Normal. The spleen measures 8.8 cm in maximum dimension. FREE FLUID: None. US/US abdomen complete IMPRESSION: 1. There is a small right hepatic lobe cyst. 2. There is a mid abdominal aortic aneurysm measuring 2.9 x 3.0 cm. 3. Small cyst midpole left kidney. There is mild pelvic fullness left kidney. 4. Rest of the abdominal ultrasound is unremarkable.
[2023-01-27 09:40] VITALS: BP 167/84; PULSE 84; RESP 22; TEMP 36.4; O2SAT 97; BMI 12.1
[2023-01-27 09:59] LABS: MANUAL DIFF FLAG NO
[2023-01-27 10:02] LABS: Appearance Urine Clear; Color Urine Yellow; Glucose Urine UA Negative (Negative); Leukocyte Esterase Urine Negative (Negative); Nitrite Urine Negative (Negative); Specific Gravity - Urine <= 1.005 (1.005-1.025); Urine Blood Negative (Negative); Urine Ketones Negative (Negative); Urine Protein Negative (Neg-Trace)
[2023-01-27 10:03] LABS: Basophils Percent Auto 0.9 % (0-2); Eosinophils Absolute Auto 0.1 X10*3/uL (0.0-0.4); Eosinophils Percent Auto 3.4 % (0-4); Hematocrit 32.9 % (37.0-47.0); Hemoglobin 10.8 g/dl (12.0-16.0); Imm Gran Abs Auto 0.01 X10*3/uL (0.00-0.03); Imm Gran Pct Auto 0.3 % (0.0-0.4); Lymphocytes Absolute Auto 0.7 X10*3/uL (1.2-4.9); Lymphocytes Percent Auto 21.1 % (20-40); Mean Corpuscular HGB Conc 32.8 g/dl (31.0-35.0); Mean Corpuscular Hemoglobin 31.2 pg (27.0-33.0); Mean Corpuscular Volume 95.1 fL (80.0-98.0); Mean Platelet Volume 11.1 fL (9.4-12.3); Monocytes Absolute Auto 0.3 X10*3/uL (0.1-1.2); Monocytes Percent Auto 7.6 % (2-11); Neutrophils Absolute Auto 2.2 x10*3/uL (2.0-8.3); Neutrophils Percent Auto 66.7 % (45-73); Platelet Count 136 X10*3/uL (160-400); Red Blood Count 3.46 X10*6/uL (4.20-5.50); Red Cell Distribution Width 13.5 % (11.0-16.0); White Blood Count 3.3 X10*3/uL (4.8-10.8)
[2023-01-27 10:17] LABS: Alanine Aminotransferase 16 U/L (0-31); Albumin Level 4.2 g/dL (3.5-5.0); Alkaline Phosphatase 113 U/L (39-117); Anion Gap 13 (12-20); Aspartate Amino Transferase 20 U/L (5-31); Bilirubin Direct 0.3 mg/dL (0.0-0.5); Bilirubin Total 0.9 mg/dL (0.0-1.0); Blood Urea Nitrogen 15 mg/dL (9-16); Calcium 9.5 mg/dL (8.4-10.2); Carbon Dioxide 29 mmol/L (22-29); Chloride 103 mmol/L (96-108); Creatinine Clr Calc Pharmacy 26.7; Estimated Glomerular Filt Rate > 60; Glucose Random 95 mg/dL (60-115); Lipase 16 U/L (8-78); Potassium 3.6 mmol/L (3.3-5.1); Sodium 141 mmol/L (135-145); Total Protein 6.9 g/dL (6.5-8.0)
[2023-01-27 11:10] VITALS: BP 165/90; PULSE 80; RESP 14; O2SAT 97
[2023-01-27] MEDS: Acetaminophen 325 MG TABLET 975 MG PO (11:36)
[2023-01-27] MEDS: Dicyclomine HCl 10 MG CAPSULE PO (11:36)
[2023-01-27] MEDS: Ondansetron ODT 4 MG TAB.RAPDIS TRANSLINGU (11:36)
--- NOTE | 2023-01-27 12:22 | ED.ABDPAIN ---
HPI - Abdominal Pain General Chief Complaint: Abdominal Pain Stated Complaint: abd pain Time Seen by Provider: 01/27/23 10:55 Source: patient Mode of arrival: ambulatory Limitations: no limitations History of Present Illness MD elicited complaint: abdominal pain Pertinent past history: none Onset (ago): month(s) (6) Pain Consistency: intermittent Location: LLQ Severity: severe Quality: cramping and aching Radiation: none Migration to: no migration Exacerbating factors: movement Relieving factors: nothing and medication Associated symptoms: nausea and constipation Related Data Home Medications Medication Instructions Recorded Confirmed acetaminophen 325 mg tablet 325 mg PO QID PRN Pain 06/21/21 01/23/23 alprazolam 0.25 mg tablet 0.25 mg PO BID 01/06/23 01/23/23 omeprazole 40 mg capsule,delayed 40 mg PO BID 01/06/23 01/23/23 release simethicone 125 mg chewable tablet 125 mg PO QID PRN gas 01/06/23 01/23/23 citalopram 10 mg tablet 5 mg PO BEDTIME 01/23/23 01/23/23 Previous Rx's Medication Instructions Recorded valsartan 80 mg tablet 80 mg PO BID #180 tabs 07/12/22 famotidine 20 mg tablet 20 mg PO BID PRN heartburn 30 days 09/21/22 #60 tabs dicyclomine 10 mg capsule 10 mg PO Q6H PRN cramps 10 days 01/04/23 #40 caps docusate sodium 100 mg capsule 100 mg PO BID #20 caps 01/08/23 (Colace) cholecalciferol (vitamin D3) 50 50 mcg PO DAILY #90 tabs 01/23/23 mcg (2,000 unit) tablet fluticasone propionate 50 1 spray intranasal DAILY 30 days 01/23/23 mcg/actuation nasal #16 grams spray,suspension ondansetron HCl 4 mg tablet 4 mg PO Q8H PRN nausea and 01/23/23 vomiting 10 days #30 tabs albuterol sulfate 90 mcg/actuation 1 inh inhalation QID PRN shortness 01/24/23 aerosol inhaler of breath or wheezing #6.7 grams betamethasone dipropionate 0.05 % 1 appl topical BID PRN skin 01/24/23 lotion irritation #60 mL fexofenadine 180 mg tablet 180 mg PO Q24H #30 tabs 05/23/23 ([facility]) hydroxyzine HCl 25 mg tablet 25 mg PO TID PRN nausea and 01/24/23 vomiting #14 tabs Allergies Allergy/AdvReac Type Severity Reaction Status Date / Time buspirone Allergy Intermediate Rash Verified 01/24/23 10:01 Sulfa (Sulfonamide Allergy Intermediate RASH Verified 01/24/23 10:01 Antibiotics) amoxicillin [From AUGMENTIN] Allergy Unknown PER H&P Verified 01/24/23 10:01 clavulanic acid Allergy Unknown PER H&P Verified 01/24/23 10:01 [From AUGMENTIN] garlic [GARLIC] Allergy Unknown PER H&P Verified 01/24/23 10:01 metronidazole [From FLAGYL] Allergy Unknown OCULAR Verified 01/24/23 10:01 MIGRAINES penicillamine Allergy Unknown Unknown Verified 01/24/23 10:01 ciprofloxacin AdvReac Intermediate neuropathic Verified 01/24/23 10:01 pain lisinopril AdvReac Intermediate Cough Verified 01/24/23 10:01 nitrofurantoin AdvReac Mild GI side Verified 01/24/23 10:01 effects environmental Allergy Unknown Unknown Uncoded 01/24/23 10:01 flagyl Allergy Unknown Unknown Uncoded 01/24/23 10:01 From KEFLEX Allergy Unknown RASH Uncoded 01/24/23 10:01 Metoprolol Tartrate Allergy Unknown Unknown Uncoded 01/24/23 10:01 Sulfacet-R Allergy Unknown Unknown Uncoded 01/24/23 10:01 [facility] Past Medical History Medical History Anxiety Arthritis Diverticulitis GERD (gastroesophageal reflux disease) Heart murmur HTN (hypertension) Irritable bowel Neuropathy Surgical History History of appendectomy History of tonsillectomy Hx of colonoscopy Hx of esophagogastroduodenoscopy Family History Family History Father No problems noted. Mother No problems noted. Social History Social History Household Members: Children Housing: House Are you a primary career advisor to a significant other at home: No Do you presently have visiting nurse or other home services: No Alcohol intake: never Patient Tobacco Use Status: Former Tobacco user Quit Date: 2013 e-Cigarette/Vaping Use: Never Used Second Hand Smoke Exposure: No Advance Directives: No Advance Directives Date on File: 11/21/22 service: No Current occupational status: retired Cognitive needs: No Hearing needs: No Vision needs: Yes (glasses) Physical Exam ED Vital Signs: Vital Signs - 24 hr 01/27/23 09:40 01/27/23 11:10 Temperature 97.5 F Pulse Rate 84 80 Respiratory Rate 22 H 14 Blood Pressure 167/84 H 165/90 H Pulse Oximetry 97 97 Oxygen Delivery Method Room Air Room Air BMI result Body Mass Index 12.1 GEN: Well developed, no acute distress, alert, oriented HEENT: Normocephalic, atraumatic, normal external ears, nose appears normal, no oropharyngeal edema or exudates Eyes: Normal to appearance Neck: Supple, no lymphadenopathy Respiratory: Talks in complete sentences, no respiratory distress, clear to auscultation bilaterally Cardiovascular: Regular rate and rhythm, no murmurs rubs or gallops Abdomen: Soft, left lower quadrant tenderness, nondistended, no guarding, no rebound Back: No CVA tenderness Extremities: No clubbing cyanosis or edema Neurologic: No focal neurologic deficits, cranial nerves 2-12 intact, strength is 5/5 bilaterally Skin: No rash Course Course Course Narrative: 82-year-old female presents with left lower quadrant abdominal tenderness. She does have history of diverticulosis and an infrarenal AAA. Her pain is consistent with previous episodes. She has had multiple imaging modalities including CT scans, x-rays. She does have tenderness but no rebound or guarding. Her laboratory analysis is unremarkable. I have ordered an ultrasound to rule out other potential diagnoses. When she has had imaging studies with the same complaints in the past, has revealed diverticulosis without acute diverticulitis. With a normal CBC, extreme intolerance to oral antibiotics, will hold off treating clinically for diverticulitis. I do not believe repeating a CT scan at this time is hopeful and could be done if her symptoms exacerbate. Reevaluation(s) Reevaluation #1: Patient's workup is complete. Patient will be discharged at this time. We discussed medical management which would include increasing her Bentyl to 3-4 times daily. Tylenol as needed, oral probiotic which she has at home. Close follow-up has been recommended. Patient has been informed reasons to return to the hospital. Time: 12:37 Medical Decision Making Medical Decision Making [facility] Narrative: 82-year-old female presents with acute on chronic left lower quadrant abdominal pain. Clinic currently, patient's symptoms are consistent with acute diverticulitis. However, patient has been to the hospital multiple times for evaluation of the same left lower quadrant abdominal pain. Her most recent imaging studies over the past year have not demonstrate acute diverticulitis. At this time will hold off on CT scan given the frequency of imaging studies, I will await finding out if there is no elevated white blood cell count. Differential diagnosis includes UTI, he renal colic, diverticulitis, colitis, diverticulitis, gastroenteritis, musculoskeletal, referred pain, radiculopathy Differential Diagnosis Differential Diagnoses: The differential diagnosis associated with the presentation includes (See above) Admission/Observation Consideration of admission/observation: Escalation of care including admission/observation considered Lab Data [facility] Lab Attestation statement: I reviewed the patient's lab results. 01/27/23 09:51 01/27/23 09:51 Labs: Lab Results 01/27/23 01/27/23 01/27/23 Range/Units 09:51 09:51 09:53 WBC 3.3 L (4.8-10.8) X10*3/uL RBC 3.46 L (4.20-5.50) X10*6/uL Hgb 10.8 L (12.0-16.0) g/dl Hct 32.9 L (37.0-47.0) % MCV 95.1 (80.0-98.0) fL MCH 31.2 (27.0-33.0) pg MCHC 32.8 (31.0-35.0) g/dl RDW 13.5 (11.0-16.0) % Plt Count 136 L (160-400) X10*3/uL MPV 11.1 (9.4-12.3) fL Immature Gran % (Auto) 0.3 (0.0-0.4) % Neut % (Auto) 66.7 (45-73) % Lymph % (Auto) 21.1 (20-40) % [place] % (Auto) 7.6 (2-11) % Eos % (Auto) 3.4 (0-4) % Baso % (Auto) 0.9 (0-2) % Lymph # (Auto) 0.7 L (1.2-4.9) X10*3/uL [place] # (Auto) 0.3 (0.1-1.2) X10*3/uL Eos # (Auto) 0.1 (0.0-0.4) X10*3/uL Baso # (Auto) 0.0 (0.0-0.2) X10*3/uL Abs Immat Gran (auto) 0.01 (0.00-0.03) X10*3/uL Absolute Neuts (auto) 2.2 (2.0-8.3) x10*3/uL Absolute Nucleated RBC 0.000 (0.0-0.012) X10*3/uL Nucleated RBC % (auto) 0.0 (0.0-0.2) /100WBC Sodium 141 (135-145) mmol/L Potassium 3.6 (3.3-5.1) mmol/L Chloride 103 (96-108) mmol/L Carbon Dioxide 29 (22-29) mmol/L Anion Gap 13 (12-20) BUN 15 (9-16) mg/dL Creatinine 0.87 (0.5-1.4) mg/dL Estim Creat Clear Calc 26.7 Estimated GFR > 60 Random Glucose 95 (60-115) mg/dL Calcium 9.5 (8.4-10.2) mg/dL Total Bilirubin 0.9 (0.0-1.0) mg/dL Direct Bilirubin 0.3 (0.0-0.5) mg/dL AST 20 (5-31) U/L ALT 16 (0-31) U/L Alkaline Phosphatase 113 (39-117) U/L Total Protein 6.9 (6.5-8.0) g/dL Albumin 4.2 (3.5-5.0) g/dL Lipase 16 (8-78) U/L Urine Color Yellow Urine Appearance Clear Urine pH 6.0 (5.0-9.0) Ur Specific Newborn <= 1.005 (1.005-1.025) Urine Protein Negative (Neg-Trace) mg/dL Urine Glucose (UA) Negative (Negative) mg/dL Urine Ketones Negative (Negative) mg/dL Urine Blood Negative (Negative) Urine Nitrite Negative (Negative) Ur Leukocyte Esterase Negative (Negative) Independent Interpretation I performed an independent interpretation of an: Ultrasound (No acute inflammatory process) Radiology Impression Discussion of test interpretation with radiology: I have reviewed the radiologist's reading. ( US/US abdomen complete IMPRESSION: 1. There is a small right hepatic lobe cyst. 2. There is a mid abdominal aortic aneurysm measuring 2.9 x 3.0 cm. 3. Small cyst midpole left kidney. There is mild pelvic fullness left kidney. 4. Rest of the abdominal ultrasound is unremarkable) External Record Review External record reviewed: Prior outpatient radiology Prescription Management I considered prescription management with: Pain Medication Medications Administered Discontinued Medications Generic Name Dose Route Start Last Admin Trade Name Freq PRN Reason Stop Dose Admin Acetaminophen 975 mg 01/27/23 11:25 01/27/23 11:36 Acetaminophen 325 Mg Tablet PO 01/27/23 11:26 975 mg ONCE ONE Administration Dicyclomine HCl 10 mg 01/27/23 11:25 01/27/23 11:36 Dicyclomine Hcl 10 Mg Capsule PO 01/27/23 11:26 10 mg ONCE ONE Administration Ondansetron HCl 4 mg 01/27/23 11:25 01/27/23 11:36 Ondansetron Odt 4 Mg Tab.Rapdis TRANSLINGU 01/27/23 11:26 4 mg ONCE ONE Administration Discharge Plan Discharge Clinical Impression: LLQ abdominal pain Patient Disposition: Home, Self-Care Instructions: Abdominal Pain (ED) Additional Instructions: For your pain, I would recommend increasing her dicyclomine from once daily to 3-4 times daily for the next 7 does 10 days. Recommend following up with her primary care provider or mechanical equipment test engineer for further management. I suspect her symptoms are mostly related to IBS. However, should her pain get worse, high fevers, blood in stool, I would recommend returning to the emergency department for re-evaluation Prescriptions: No Action valsartan 80 mg tablet 80 mg PO BID Qty: 180 2RF Rx Instructions: New Dose famotidine 20 mg tablet 20 mg PO BID PRN (Reason: heartburn) 30 Days Qty: 60 1RF dicyclomine 10 mg capsule 10 mg PO Q6H PRN (Reason: cramps) 10 Days Qty: 40 0RF docusate sodium [Colace] 100 mg capsule 100 mg PO BID Qty: 20 0RF acetaminophen 325 mg Tablet 325 mg PO QID PRN (Reason: Pain) omeprazole 40 mg Capsule,Delayed Release(Dr/Ec) 40 mg PO BID alprazolam 0.25 mg Tablet 0.25 mg PO BID simethicone 125 mg Tablet,Chewable 125 mg PO QID PRN (Reason: gas) hydroxyzine HCl 25 mg tablet 25 mg PO TID PRN (Reason: nausea and vomiting) Qty: 14 0RF fexofenadine [[facility]] 180 mg tablet 180 mg PO Q24H Qty: 30 0RF citalopram 10 mg tablet 5 mg PO BEDTIME fluticasone propionate 50 mcg/actuation spray,suspension 1 spray INTRANASAL DAILY 30 Days Qty: 16 3RF Rx Instructions: administer into each nostril ondansetron HCl 4 mg tablet 4 mg PO Q8H PRN (Reason: nausea and vomiting) 10 Days Qty: 30 0RF cholecalciferol (vitamin D3) 50 mcg (2,000 unit) tablet 50 mcg PO DAILY Qty: 90 3RF betamethasone dipropionate 0.05 % lotion 1 appl topical BID PRN (Reason: skin irritation) Qty: 60 0RF albuterol sulfate 90 mcg/actuation HFA aerosol inhaler 1 inh inhalation QID PRN (Reason: shortness of breath or wheezing) Qty: 6.7 0RF Referrals: Nick Gomez PA-C [Primary Care Provider] - 3 days
== END 2023-01-27 13:00 | disposition home or self-care (01) ==
PROVIDERS: Emergency Provider Emergency Medicine; PCP Physician Assistant
DX: R10.32 Left lower quadrant pain (principal); I10 Essential (primary) hypertension; Z79.899 Other long term (current) drug therapy
CPT/HCPCS: 36415; 76700; 80048; 80076; 81003; 83690; 85025; 99283; 99284

== ENCOUNTER 2023-01-31 07:37 | Outpatient (REF) | payer MEDICARE, OTHER, SELFPAY ==
--- NOTE | ~2023-01-31 | CT_ITS ---
CT SINUS WITHOUT CONTRAST CLINICAL INFORMATION: Left facial pain. Sinonasal polyps. COMPARISON: None available. TECHNIQUE: Multidetector CT acquisition of the maxillofacial region is obtained without contrast. Multiplanar reformats are acquired and utilized for image interpretation. This CT examination was performed using dose optimization techniques as appropriate, variously including the following: *Automated exposure control *Adjustment of mA and/or kV according to patient size (this includes techniques or standardized protocols for targeted exams where dose is matched to indication/reason for exam; i.e. extremities or head) *Use of iterative reconstruction technique FINDINGS: There is mild mucosal thickening within the left maxillary sinus and the remaining paranasal sinuses are clear. Mastoid air cells and middle ear cavities are clear. There is significant rightward deviation of the nasal septum. The major sinus drainage pathways are patent. No polypoid soft tissue within the nasal cavities. Right fovea ethmoidalis is 4 mm deeper than the left side. Olfactory grooves are symmetric in depth. The bony orbits are intact. Internal carotid arteries remain well covered with bone. Mastoid air cells and middle ear cavities are clear. Degenerative changes involving the TMJs bilaterally. There is no periapical disease. Severe lateral and third ventriculomegaly again noted is disproportionate to sulcal prominence and that should be correlated for clinical signs of normal pressure hydrocephalus. Extensive hypoattenuation within the supratentorial white matter may reflect advanced chronic microangiopathy and/or transependymal CSF effusion. No significant soft tissue findings CT/CT sinus wo IV con IMPRESSION: - There is significant rightward deviation of the nasal septum. - Mild mucosal thickening within the left maxillary sinus. The remaining paranasal sinuses are clear. - Degenerative changes involving the TMJs bilaterally. - Severe lateral and third ventriculomegaly again noted is disproportionate to sulcal prominence and that should be correlated for clinical signs of normal pressure hydrocephalus. Extensive hypoattenuation within the supratentorial white matter may reflect advanced chronic microangiopathy and/or transependymal CSF effusion.
== END 2023-01-31 07:38 | disposition home or self-care (01) ==
LOC: HO.CT 07:37
PROVIDERS: Visit Provider Otolaryngology
DX: G50.1 Atypical facial pain (principal); J33.0 Polyp of nasal cavity
CPT/HCPCS: 70486

== ENCOUNTER 2023-02-04 11:45 | Emergency (ER) | payer MEDICARE, OTHER, SELFPAY ==
--- NOTE | ~2023-02-04 | XR_ITS ---
EXAMINATION: XR CHEST CLINICAL INFORMATION: Chest pain COMPARISON: July 01, 2022 and June 24, 2022 TECHNIQUE: AP portable view of the chest was obtained. FINDINGS: There is no evidence of acute parenchymal disease, pneumothorax, or pleural effusion. Heart normal size. No evidence of pulmonary edema. There is bilateral upper lobe scarring present. XR/XR chest 1V IMPRESSION: No acute disease.
--- NOTE | 2023-02-04 11:51 | ECG_ITS ---
Test Reason : CHEST PAIN Blood Pressure : / mmHG Vent. Rate : 071 BPM Atrial Rate : 071 BPM P-R Int : 232 ms QRS Dur : 084 ms QT Int : 384 ms P-R-T Axes : 042 -03 032 degrees QTc Int : 417 ms Sinus rhythm with sinus arrhythmia with 1st degree A-V block Otherwise normal ECG When compared with ECG of 27-DEC-2022 15:39, Criteria for Inferior infarct are no longer Present Referred By: Marge Causey Electronically Signed By:MICHEL CHARLES MD
[2023-02-04 11:53] VITALS: BP 163/94; BP 166/90; PULSE 110; PULSE 90; RESP 13; TEMP 36.7; O2SAT 100; O2SAT 94; BMI 28.7
[2023-02-04 12:09] VITALS: BP 163/94; PULSE 88; RESP 14; O2SAT 96
[2023-02-04 12:28] LABS: MANUAL DIFF FLAG NO
[2023-02-04 12:32] LABS: Basophils Percent Auto 0.3 % (0-2); Eosinophils Absolute Auto 0.1 X10*3/uL (0.0-0.4); Eosinophils Percent Auto 2.4 % (0-4); Hematocrit 33.1 % (37.0-47.0); Hemoglobin 10.8 g/dl (12.0-16.0); Imm Gran Abs Auto 0.02 X10*3/uL (0.00-0.03); Imm Gran Pct Auto 0.5 % (0.0-0.4); Lymphocytes Absolute Auto 0.6 X10*3/uL (1.2-4.9); Lymphocytes Percent Auto 17.1 % (20-40); Mean Corpuscular HGB Conc 32.6 g/dl (31.0-35.0); Mean Corpuscular Hemoglobin 30.7 pg (27.0-33.0); Mean Platelet Volume 11.4 fL (9.4-12.3); Monocytes Absolute Auto 0.2 X10*3/uL (0.1-1.2); Monocytes Percent Auto 6.3 % (2-11); Neutrophils Absolute Auto 2.7 x10*3/uL (2.0-8.3); Neutrophils Percent Auto 73.4 % (45-73); Platelet Count 121 X10*3/uL (160-400); Red Blood Count 3.52 X10*6/uL (4.20-5.50); Red Cell Distribution Width 13.3 % (11.0-16.0); White Blood Count 3.7 X10*3/uL (4.8-10.8)
[2023-02-04 12:48] LABS: Alanine Aminotransferase 11 U/L (0-31); Albumin Level 4.1 g/dL (3.5-5.0); Alkaline Phosphatase 106 U/L (39-117); Anion Gap 13 (12-20); Aspartate Amino Transferase 17 U/L (5-31); Bilirubin Direct 0.2 mg/dL (0.0-0.5); Bilirubin Total 0.7 mg/dL (0.0-1.0); Blood Urea Nitrogen 16 mg/dL (9-16); Calcium 9.6 mg/dL (8.4-10.2); Carbon Dioxide 29 mmol/L (22-29); Chloride 105 mmol/L (96-108); Creatinine Clr Calc Pharmacy 54.7; Estimated Glomerular Filt Rate > 60; Glucose Random 102 mg/dL (60-115); Magnesium 2.1 mg/dL (1.6-2.6); Potassium 4.9 mmol/L (3.3-5.1); Sodium 142 mmol/L (135-145); Total Protein 6.9 g/dL (6.5-8.0)
[2023-02-04 12:53] LABS: B Type Natriuretic Peptide 128 pg/mL (<100)
[2023-02-04 12:55] LABS: Troponin-I High Sensitivity < 2.7 ng/L (<3.5-17.0)
[2023-02-04 13:55] LABS: Appearance Urine Clear; Color Urine Yellow; Glucose Urine UA Negative (Negative); Leukocyte Esterase Urine Negative (Negative); Nitrite Urine Negative (Negative); PH 6.5 (5.0-9.0); Urine Blood Negative (Negative); Urine Ketones Negative (Negative); Urine Protein Negative (Neg-Trace)
[2023-02-04 15:01] LABS: COVID-19 Test Negative (Negative); IDNOW Serial# 16C4AD1C
[2023-02-04 15:15] LABS: Troponin-I High Sensitivity 4.6 ng/L (<3.5-17.0)
[2023-02-04 15:25] VITALS: PULSE 73
--- NOTE | 2023-02-04 15:26 | PC.NURSE ---
report received from TERRA nelson pt is resting comfortably on stretcher at this time, reporting mild chest pressure but no pain. pt reports wanting zofran and alprazolam, provider aware. Pt also reports that she hungry
[2023-02-04 16:37] VITALS: BP 150/89; PULSE 82; RESP 19; TEMP 36.7; O2SAT 96
--- NOTE | 2023-02-04 16:42 | ED.CHESTPAIN ---
HPI - Chest Pain General Chief Complaint: Chest Pain Stated Complaint: CP X4 HOURS,NITRO,ASA GIVEN Time Seen by Provider: 02/04/23 11:50 Source: patient and RN notes reviewed Mode of arrival: ambulatory Limitations: no limitations History of Present Illness HPI narrative: This is a 82-year-old female, with a past medical history of anxiety, diverticulitis, aortic stenosis, GERD, heart murmur, hypertension, neuropathy, who presents to the emergency department via EMS, with complaints of ?chest tightness which occurred early this morning. Patient says that she was laying down and felt a tight squeezing sensation in her chest which radiated to her back. Patient reports that the chest tightness has been constant, reports some nausea and palpitations, denies any shortness of breath. Patient denies any fevers, chills, congestion, abdominal pain, vomiting, or diarrhea. Patient reports that she tried taking her anxiety medications at home when she felt the symptoms however reported that her symptoms do not resolve in called 911. EN route, patient received aspirin and nitroglycerin but her symptoms do not resolve. No other complaints or concerns at this time. MD complaint: chest pain Timing of current episode: episodic and constant Prior episodes: No Onset: during rest Pain location: substernal Pain radiation: back Severity: mild Quality: tightness Relieving factors: nothing Exacerbating factors: nothing Associated symptoms: nausea Treatment prior to arrival: none Risk Factors Coronary artery disease risk factors: hypertension Thoracic aortic dissection risk factors: none Related Data On Oral Contraceptives: No Home Medications Medication Instructions Recorded Confirmed alprazolam 0.25 mg tablet 0.25 mg PO BID 01/06/23 02/04/23 simethicone 125 mg chewable tablet 125 mg PO QID PRN gas 01/06/23 02/04/23 citalopram 10 mg tablet 5 mg PO BEDTIME 01/23/23 01/23/23 Previous Rx's Medication Instructions Recorded valsartan 80 mg tablet 80 mg PO BID #180 tabs 07/12/22 famotidine 20 mg tablet 20 mg PO BID PRN heartburn 30 days 09/21/22 #60 tabs dicyclomine 10 mg capsule 10 mg PO Q6H PRN cramps 10 days 01/04/23 #40 caps docusate sodium 100 mg capsule 100 mg PO BID #20 caps 01/08/23 (Colace) cholecalciferol (vitamin D3) 50 50 mcg PO DAILY #90 tabs 01/23/23 mcg (2,000 unit) tablet fluticasone propionate 50 1 spray intranasal DAILY 30 days 01/23/23 mcg/actuation nasal #16 grams spray,suspension albuterol sulfate 90 mcg/actuation 1 inh inhalation QID PRN shortness 01/24/23 aerosol inhaler of breath or wheezing #6.7 grams betamethasone dipropionate 0.05 % 1 appl topical BID PRN skin 01/24/23 lotion irritation #60 mL fexofenadine 180 mg tablet 180 mg PO Q24H #30 tabs 01/24/23 ([facility]) hydroxyzine HCl 25 mg tablet 25 mg PO TID PRN nausea and 01/24/23 vomiting #14 tabs Allergies Allergy/AdvReac Type Severity Reaction Status Date / Time buspirone Allergy Intermediate Rash Verified 02/04/23 15:31 Sulfa (Sulfonamide Allergy Intermediate RASH Verified 02/04/23 15:31 Antibiotics) amoxicillin [From AUGMENTIN] Allergy Unknown PER H&P Verified 02/04/23 15:31 clavulanic acid Allergy Unknown PER H&P Verified 02/04/23 15:31 [From AUGMENTIN] garlic [GARLIC] Allergy Unknown PER H&P Verified 02/04/23 15:31 metronidazole [From FLAGYL] Allergy Unknown OCULAR Verified 02/04/23 15:31 MIGRAINES penicillamine Allergy Unknown Unknown Verified 02/04/23 15:31 ciprofloxacin AdvReac Intermediate neuropathic Verified 02/04/23 15:31 pain lisinopril AdvReac Intermediate Cough Verified 02/04/23 15:31 nitrofurantoin AdvReac Mild GI side Verified 02/04/23 15:31 effects environmental Allergy Unknown Unknown Uncoded 02/04/23 15:31 flagyl Allergy Unknown Unknown Uncoded 02/04/23 15:31 From KEFLEX Allergy Unknown RASH Uncoded 02/04/23 15:31 Metoprolol Tartrate Allergy Unknown Unknown Uncoded 02/04/23 15:31 Sulfacet-R Allergy Unknown Unknown Uncoded 02/04/23 15:31 Review of Systems Review of Systems: Constitutional: No Weight loss, No Fever, No Chills, No Night Sweats, No Fatigue, No Malaise ENT/Mouth: No Hearing loss, No Ear Pain, No Nasal Congestion, No Sinus Pain, No Hoarseness, No sore throat, No Rhinorrhea, No Swallowing Difficulty Eyes: No Eye Pain, No Swelling, No Redness, No Foreign Body, No Discharge, No Vision Changes Cardiovascular: + Chest Pain, No SOB, No Dyspnea on Exertion, No Orthopnea, No Edema, + Palpitations Respiratory: No Cough, No Sputum, No Wheezing, No Smoke Exposure, No Dyspnea Gastrointestinal: + Nausea, No Vomiting, No Diarrhea, No Constipation, No Abdominal pain, No Hematochezia, No Melena Genitourinary: No irregular bleeding, No Dysuria, No Urinary Frequency, No Hematuria, No Urinary Incontinence/retention, No Urgency, No Flank Pain, No Urinary Flow Changes, No Hesitancy Musculoskeletal: No joint pain, No Myalgias, No Joint Swelling Skin: No Skin Lesions, No rash Neuro: No Weakness, No Numbness, No Paresthesias, No Loss of Consciousness, No Dizziness, No Headache Psych: No Anxiety/Panic, No Depression, No SI/HI/AH/VH, No Social Issues, Heme/Lymph: No Bruising, No Bleeding,No Lymphadenopathy Endocrine: No Polyuria, No Polydipsia, No Temperature Intolerance Yes all other systems are reviewed and are negative Constitutional: Constitutional: Reports as per [facility] Past Medical History Medical History Anxiety Arthritis Diverticulitis GERD (gastroesophageal reflux disease) Heart murmur HTN (hypertension) Irritable bowel Neuropathy Surgical History History of appendectomy History of tonsillectomy Hx of colonoscopy Hx of esophagogastroduodenoscopy Family History Family History Father No problems noted. Mother No problems noted. Social History Social History Household Members: Children Housing: House Are you a primary career development coordinator to a significant other at home: No Do you presently have visiting nurse or other home services: No Alcohol intake: former Patient Tobacco Use Status: Former Tobacco user Quit Date: 2013 Smoked in Last 30 Days: No e-Cigarette/Vaping Use: Never Used Second Hand Smoke Exposure: No Use of substances other than those prescribed or required for medical reasons: No Advance Directives: No Advance Directives Information Provided: No Advance Directives Date on File: 11/21/22 service: No Current occupational status: retired Cognitive needs: No Hearing needs: No Vision needs: Yes (glasses) Physical Exam Vital Signs: Vital Signs: Last Vital Signs Temp 98.1 F 02/04/23 16:37 Pulse 82 02/04/23 16:37 Resp 19 02/04/23 16:37 BP 150/89 H 02/04/23 16:37 Pulse Ox 96 02/04/23 16:37 O2 Del Method Room Air 02/04/23 16:37 BMI result Body Mass Index 28.7 Const: General: cooperative, comfortable and no acute distress Orientation/consciousness: patient oriented x3 Limitations: no limitations HEENT: Head: Yes normal to inspection, Yes normocephalic and Yes atraumatic Ears: hearing grossly normal bilaterally General nose exam: Normal external nose present Face and sinus: Yes normal facial exam Mouth: Normal oral and palatal mucosa present, oropharynx normal and moist mucous membranes Throat: Yes posterior oropharynx normal Eyes: General: appearance normal, both eyes and all related structures Eyelids: Yes eyelids normal Conjunctivae: conjunctivae normal Sclerae: sclerae normal Pupils: Equal, round and reactive pupils present EOM: EOMs intact bilaterally Neck: Neck: Yes normal visual inspection, Yes full ROM and Yes no lymphadenopathy Lymphatic: no lymphadenopathy noted Chest: Chest palpation & inspection: normal inspection of the chest Resp: Effort & Inspection: normal respiratory effort and able to speak in complete sentences Auscultation: clear to auscultation bilaterally, no crackles, no rales, no rhonchi and no wheezes Cardio: Other: Harsh systolic murmur auscultated, best heard over left sternal border; consistent with aortic stenosis Rate: regular rate Rhythm: regular rhythm GI: Inspection: Yes normal to inspection Skin: General skin exam: no rashes or lesions noted Trauma: no lacerations or abrasions Wounds: no wounds Neuro: General: patient oriented x3 and moves all extremities Cranial nerves: Yes Equal, round and reactive pupils present Extrem: General: Yes normal to inspection Right upper extremity: normal to inspection Left upper extremity: normal to inspection Right lower extremity: normal to inspection Left lower extremity: normal to inspection Course Reevaluation(s) Reevaluation #1: Patient re-evaluated, chest x-ray, EKG, troponin, all normal. Discussed at length patient's symptoms and does not appear to be cardiac related especially with negative cardiac workup. Patient reports that she is under a significant amount of stress at home reports that her son is not helpful at home, has a sick cat, and she is still mourning the loss of her which occurred urine half ago. I discussed with her the importance of following up with her drywall applicator as well as her primary care physician as they may want to do further testing. Educated on the importance of mindfulness, and meditation as this can help with anxiety. Vital signs stable, patient stable for discharge. Time: 17:06 Medical Decision Making Medical Decision Making MDM Narrative: 82-year-old female, with a past medical history of anxiety, diverticulitis, aortic stenosis, GERD, heart murmur, hypertension, neuropathy, who presents to the emergency department via EMS, with complaints of ?chest tightness which occurred early this morning. Upon arrival via EMS, patient received aspirin and nitroglycerin, patient reports no relief of her symptoms with these medications. Vital signs mildly hypertensive at 163/94. All other vital signs within normal limits. Plan: Chest x-ray, EKG, labs, Differential Diagnosis Differential Diagnoses: The differential diagnosis associated with the presentation includes Admission/Observation Consideration of admission/observation: Escalation of care including admission/observation considered Lab Data [facility] Lab Attestation statement: I reviewed the patient's lab results. 02/04/23 12:23 02/04/23 12:23 Labs: Lab Results 02/04/23 02/04/23 02/04/23 Range/Units 12:23 12:23 12:23 WBC 3.7 L (4.8-10.8) X10*3/uL RBC 3.52 L (4.20-5.50) X10*6/uL Hgb 10.8 L (12.0-16.0) g/dl Hct 33.1 L (37.0-47.0) % MCV 94.0 (80.0-98.0) fL MCH 30.7 (27.0-33.0) pg MCHC 32.6 (31.0-35.0) g/dl RDW 13.3 (11.0-16.0) % Plt Count 121 L (160-400) X10*3/uL MPV 11.4 (9.4-12.3) fL Immature Gran % (Auto) 0.5 H (0.0-0.4) % Neut % (Auto) 73.4 H (45-73) % Lymph % (Auto) 17.1 L (20-40) % [place] % (Auto) 6.3 (2-11) % Eos % (Auto) 2.4 (0-4) % Baso % (Auto) 0.3 (0-2) % Lymph # (Auto) 0.6 L (1.2-4.9) X10*3/uL [place] # (Auto) 0.2 (0.1-1.2) X10*3/uL Eos # (Auto) 0.1 (0.0-0.4) X10*3/uL Baso # (Auto) 0.0 (0.0-0.2) X10*3/uL Abs Immat Gran (auto) 0.02 (0.00-0.03) X10*3/uL Absolute Neuts (auto) 2.7 (2.0-8.3) x10*3/uL Absolute Nucleated RBC 0.000 (0.0-0.012) X10*3/uL Nucleated RBC % (auto) 0.0 (0.0-0.2) /100WBC Sodium 142 (135-145) mmol/L Potassium 4.9 D (3.3-5.1) mmol/L Chloride 105 (96-108) mmol/L Carbon Dioxide 29 (22-29) mmol/L Anion Gap 13 (12-20) BUN 16 (9-16) mg/dL Creatinine 0.85 (0.5-1.4) mg/dL Estim Creat Clear Calc 54.7 Estimated GFR > 60 Random Glucose 102 (60-115) mg/dL Calcium 9.6 (8.4-10.2) mg/dL Magnesium 2.1 (1.6-2.6) mg/dL Total Bilirubin 0.7 (0.0-1.0) mg/dL Direct Bilirubin 0.2 (0.0-0.5) mg/dL AST 17 (5-31) U/L ALT 11 (0-31) U/L Alkaline Phosphatase 106 (39-117) U/L Troponin I High Sens < 2.7 (<3.5-17.0) ng/L B-Natriuretic Peptide (<100) pg/mL Total Protein 6.9 (6.5-8.0) g/dL Albumin 4.1 (3.5-5.0) g/dL Urine Color Urine Appearance Urine pH (5.0-9.0) Ur Specific Ransom (1.005-1.025) Urine Protein (Neg-Trace) mg/dL Urine Glucose (UA) (Negative) mg/dL Urine Ketones (Negative) mg/dL Urine Blood (Negative) Urine Nitrite (Negative) Ur Leukocyte Esterase (Negative) COVID-19 (MANDI) (Negative) COVID-19 Clin Com 02/04/23 02/04/23 02/04/23 Range/Units 12:23 13:40 14:40 WBC (4.8-10.8) X10*3/uL RBC (4.20-5.50) X10*6/uL Hgb (12.0-16.0) g/dl Hct (37.0-47.0) % MCV (80.0-98.0) fL MCH (27.0-33.0) pg MCHC (31.0-35.0) g/dl RDW (11.0-16.0) % Plt Count (160-400) X10*3/uL MPV (9.4-12.3) fL Immature Gran % (Auto) (0.0-0.4) % Neut % (Auto) (45-73) % Lymph % (Auto) (20-40) % [place] % (Auto) (2-11) % Eos % (Auto) (0-4) % Baso % (Auto) (0-2) % Lymph # (Auto) (1.2-4.9) X10*3/uL [place] # (Auto) (0.1-1.2) X10*3/uL Eos # (Auto) (0.0-0.4) X10*3/uL Baso # (Auto) (0.0-0.2) X10*3/uL Abs Immat Gran (auto) (0.00-0.03) X10*3/uL Absolute Neuts (auto) (2.0-8.3) x10*3/uL Absolute Nucleated RBC (0.0-0.012) X10*3/uL Nucleated RBC % (auto) (0.0-0.2) /100WBC Sodium (135-145) mmol/L Potassium (3.3-5.1) mmol/L Chloride (96-108) mmol/L Carbon Dioxide (22-29) mmol/L Anion Gap (12-20) BUN (9-16) mg/dL Creatinine (0.5-1.4) mg/dL Estim Creat Clear Calc Estimated GFR Random Glucose (60-115) mg/dL Calcium (8.4-10.2) mg/dL Magnesium (1.6-2.6) mg/dL Total Bilirubin (0.0-1.0) mg/dL Direct Bilirubin (0.0-0.5) mg/dL AST (5-31) U/L ALT (0-31) U/L Alkaline Phosphatase (39-117) U/L Troponin I High Sens 4.6 D (<3.5-17.0) ng/L B-Natriuretic Peptide 128 H (<100) pg/mL Total Protein (6.5-8.0) g/dL Albumin (3.5-5.0) g/dL Urine Color Yellow Urine Appearance Clear Urine pH 6.5 (5.0-9.0) Ur Specific Ransom 1.010 (1.005-1.025) Urine Protein Negative (Neg-Trace) mg/dL Urine Glucose (UA) Negative (Negative) mg/dL Urine Ketones Negative (Negative) mg/dL Urine Blood Negative (Negative) Urine Nitrite Negative (Negative) Ur Leukocyte Esterase Negative (Negative) COVID-19 (MANDI) (Negative) COVID-19 Clin Com 02/04/23 02/04/23 Range/Units 14:40 16:06 WBC (4.8-10.8) X10*3/uL RBC (4.20-5.50) X10*6/uL Hgb (12.0-16.0) g/dl Hct (37.0-47.0) % MCV (80.0-98.0) fL MCH (27.0-33.0) pg MCHC (31.0-35.0) g/dl RDW (11.0-16.0) % Plt Count (160-400) X10*3/uL MPV (9.4-12.3) fL Immature Gran % (Auto) (0.0-0.4) % Neut % (Auto) (45-73) % Lymph % (Auto) (20-40) % [place] % (Auto) (2-11) % Eos % (Auto) (0-4) % Baso % (Auto) (0-2) % Lymph # (Auto) (1.2-4.9) X10*3/uL [place] # (Auto) (0.1-1.2) X10*3/uL Eos # (Auto) (0.0-0.4) X10*3/uL Baso # (Auto) (0.0-0.2) X10*3/uL Abs Immat Gran (auto) (0.00-0.03) X10*3/uL Absolute Neuts (auto) (2.0-8.3) x10*3/uL Absolute Nucleated RBC (0.0-0.012) X10*3/uL Nucleated RBC % (auto) (0.0-0.2) /100WBC Sodium (135-145) mmol/L Potassium (3.3-5.1) mmol/L Chloride (96-108) mmol/L Carbon Dioxide (22-29) mmol/L Anion Gap (12-20) BUN (9-16) mg/dL Creatinine (0.5-1.4) mg/dL Estim Creat Clear Calc Estimated GFR Random Glucose (60-115) mg/dL Calcium (8.4-10.2) mg/dL Magnesium (1.6-2.6) mg/dL Total Bilirubin (0.0-1.0) mg/dL Direct Bilirubin (0.0-0.5) mg/dL AST (5-31) U/L ALT (0-31) U/L Alkaline Phosphatase (39-117) U/L Troponin I High Sens 4.5 (<3.5-17.0) ng/L B-Natriuretic Peptide (<100) pg/mL Total Protein (6.5-8.0) g/dL Albumin (3.5-5.0) g/dL Urine Color Urine Appearance Urine pH (5.0-9.0) Ur Specific Ransom (1.005-1.025) Urine Protein (Neg-Trace) mg/dL Urine Glucose (UA) (Negative) mg/dL Urine Ketones (Negative) mg/dL Urine Blood (Negative) Urine Nitrite (Negative) Ur Leukocyte Esterase (Negative) COVID-19 (MANDI) Negative (Negative) COVID-19 Clin Com See Note Radiology Impression Discussion of test interpretation with radiology: I have reviewed the radiologist's reading. External Record Review External record reviewed: Inpatient record, Office record, Outpatient record, Prior outpatient labs, Prior outpatient radiology, Primary care record and Outside ED record Discharge Plan Discharge Clinical Impression: Chest pain Patient Disposition: Home, Self-Care Instructions: Chest Pain (ED) Additional Instructions: It is unclear what is causing your symptoms, but your workup today was reassuring. Please follow-up with your drywall applicator and your primary care physician regarding this visit as they may want to do further testing. If any new or worsening symptoms occur, including worsening chest pain, shortness of breath, palpitations, or any other symptoms, please return for re-evaluation. Prescriptions: No Action valsartan 80 mg tablet 80 mg PO BID Qty: 180 2RF Rx Instructions: New Dose famotidine 20 mg tablet 20 mg PO BID PRN (Reason: heartburn) 30 Days Qty: 60 1RF dicyclomine 10 mg capsule 10 mg PO Q6H PRN (Reason: cramps) 10 Days Qty: 40 0RF docusate sodium [Colace] 100 mg capsule 100 mg PO BID Qty: 20 0RF alprazolam 0.25 mg Tablet 0.25 mg PO BID simethicone 125 mg Tablet,Chewable 125 mg PO QID PRN (Reason: gas) hydroxyzine HCl 25 mg tablet 25 mg PO TID PRN (Reason: nausea and vomiting) Qty: 14 0RF fexofenadine [[facility]] 180 mg tablet 180 mg PO Q24H Qty: 30 0RF citalopram 10 mg tablet 5 mg PO BEDTIME fluticasone propionate 50 mcg/actuation spray,suspension 1 spray INTRANASAL DAILY 30 Days Qty: 16 3RF Rx Instructions: administer into each nostril cholecalciferol (vitamin D3) 50 mcg (2,000 unit) tablet 50 mcg PO DAILY Qty: 90 3RF betamethasone dipropionate 0.05 % lotion 1 appl topical BID PRN (Reason: skin irritation) Qty: 60 0RF albuterol sulfate 90 mcg/actuation HFA aerosol inhaler 1 inh inhalation QID PRN (Reason: shortness of breath or wheezing) Qty: 6.7 0RF Interventions: ED Discharge Assessment Last Done: 02/04/23 17:20 Discharge Date/Time: 02/04/23 17:21
[2023-02-04 16:43] LABS: Troponin-I High Sensitivity 4.5 ng/L (<3.5-17.0)
== END 2023-02-04 17:21 | disposition home or self-care (01) ==
PROVIDERS: Physician Assistant Medical; Emergency Provider Emergency Medicine; PCP Physician Assistant
DX: R07.9 Chest pain, unspecified (principal); Z20.822 Contact with and (suspected) exposure to COVID-19; I10 Essential (primary) hypertension; Z87.891 Personal history of nicotine dependence; Z79.899 Other long term (current) drug therapy
CPT/HCPCS: 36415; 71045; 80048; 80076; 81003; 83735; 83880; 84484; 85025; 87635; 93005; 99283; 99284

== ENCOUNTER 2023-02-05 14:50 | Emergency (ER) | payer MEDICARE, OTHER, SELFPAY ==
--- NOTE | ~2023-02-05 | XR_ITS ---
EXAMINATION: XR ABDOMEN KUB CLINICAL INDICATION: Pain, constipation. COMPARISON: Abdominal radiograph 12/11/2022. TECHNIQUE: AP view of the abdomen. FINDINGS: Nonobstructive bowel gas pattern. Moderate to large amount of stool in the colon and rectum. Lung bases are clear. No acute osseous abnormalities. XR/XR KUB IMPRESSION: 1. Nonobstructive bowel gas pattern. 2. Moderate to large stool burden.
[2023-02-05 15:40] VITALS: BP 136/95; PULSE 87; RESP 18; TEMP 36.3; O2SAT 96; BMI 27.9
--- NOTE | 2023-02-05 15:42 | ED.GENADULT ---
HPI - General Adult General Chief complaint: Abdominal Pain Stated complaint: Abd pain Time Seen by Provider: 02/05/23 17:54 Source: patient, RN notes reviewed and old records reviewed Mode of arrival: ambulatory Limitations: no limitations History of Present Illness HPI narrative: 82-year-old female with past medical history significant for GERD, hypertension, chronic constipation, aortic stenosis, vertigo, hydrocephalus presents for evaluation of lower abdominal pain. Patient reports that she use an enema to have a bowel movement yesterday. Denies any blood in the stool Patient reports that she has abdominal pain on off for the last month or so. The patient was seen here yesterday for chest tightness pain Showed negative cardiac workup and was discharged Denies any urinary complaints Patient denies any fevers, chills Related Data Home Medications Medication Instructions Recorded Confirmed alprazolam 0.25 mg tablet 0.25 mg PO BID 01/06/23 02/04/23 simethicone 125 mg chewable tablet 125 mg PO QID PRN gas 01/06/23 02/04/23 citalopram 10 mg tablet 5 mg PO BEDTIME 01/23/23 01/23/23 Previous Rx's Medication Instructions Recorded valsartan 80 mg tablet 80 mg PO BID #180 tabs 07/12/22 famotidine 20 mg tablet 20 mg PO BID PRN heartburn 30 days 09/21/22 #60 tabs dicyclomine 10 mg capsule 10 mg PO Q6H PRN cramps 10 days 01/04/23 #40 caps docusate sodium 100 mg capsule 100 mg PO BID #20 caps 01/08/23 (Colace) cholecalciferol (vitamin D3) 50 50 mcg PO DAILY #90 tabs 01/23/23 mcg (2,000 unit) tablet fluticasone propionate 50 1 spray intranasal DAILY 30 days 01/23/23 mcg/actuation nasal #16 grams spray,suspension albuterol sulfate 90 mcg/actuation 1 inh inhalation QID PRN shortness 01/24/23 aerosol inhaler of breath or wheezing #6.7 grams betamethasone dipropionate 0.05 % 1 appl topical BID PRN skin 01/24/23 lotion irritation #60 mL fexofenadine 180 mg tablet 180 mg PO Q24H #30 tabs 01/24/23 ([facility] Allergy) hydroxyzine HCl 25 mg tablet 25 mg PO TID PRN nausea and 01/24/23 vomiting #14 tabs lactulose 20 gram/30 mL oral 20 g (30 mL) PO BID #1,200 mL 02/05/23 solution polyethylene glycol 3350 17 gram 17 g PO DAILY #30 ea 02/05/23 oral powder packet (Miralax) Allergies Allergy/AdvReac Type Severity Reaction Status Date / Time buspirone Allergy Intermediate Rash Verified 02/04/23 15:31 Sulfa (Sulfonamide Allergy Intermediate RASH Verified 02/04/23 15:31 Antibiotics) amoxicillin [From AUGMENTIN] Allergy Unknown PER H&P Verified 02/04/23 15:31 clavulanic acid Allergy Unknown PER H&P Verified 02/04/23 15:31 [From AUGMENTIN] garlic [GARLIC] Allergy Unknown PER H&P Verified 02/04/23 15:31 metronidazole [From FLAGYL] Allergy Unknown OCULAR Verified 02/04/23 15:31 MIGRAINES penicillamine Allergy Unknown Unknown Verified 02/04/23 15:31 ciprofloxacin AdvReac Intermediate neuropathic Verified 02/04/23 15:31 pain lisinopril AdvReac Intermediate Cough Verified 02/04/23 15:31 nitrofurantoin AdvReac Mild GI side Verified 02/04/23 15:31 effects environmental Allergy Unknown Unknown Uncoded 02/04/23 15:31 flagyl Allergy Unknown Unknown Uncoded 02/04/23 15:31 From KEFLEX Allergy Unknown RASH Uncoded 02/04/23 15:31 Metoprolol Tartrate Allergy Unknown Unknown Uncoded 02/04/23 15:31 Sulfacet-R Allergy Unknown Unknown Uncoded 02/04/23 15:31 Review of Systems Constitutional: Constitutional: Denies body ache(s) and Denies chills Cardiovascular: Cardiovascular: Denies Abdominal Distension, Denies chest pain and Denies dyspnea Respiratory: Respiratory: Denies cough and Denies dyspnea Gastrointestinal: Gastrointestinal: Reports abdominal pain, Denies hematochezia, Reports constipation, Denies diarrhea, Denies nausea and Denies vomiting Musculoskeletal: Musculoskeletal: Denies myalgias Integumentary/Breasts: Skin/Breast: Denies rash PMFSH Past Medical History Medical History Anxiety Arthritis Diverticulitis GERD (gastroesophageal reflux disease) Heart murmur HTN (hypertension) Irritable bowel Neuropathy Surgical History History of appendectomy History of tonsillectomy Hx of colonoscopy Hx of esophagogastroduodenoscopy Family History Family History Father No problems noted. Mother No problems noted. Social History Social History Household Members: Children Housing: House Are you a primary primary care nurse practitioner to a significant other at home: No Do you presently have visiting nurse or other home services: No Alcohol intake: former Patient Tobacco Use Status: Former Tobacco user Quit Date: 2013 Smoked in Last 30 Days: No e-Cigarette/Vaping Use: Never Used Second Hand Smoke Exposure: No Use of substances other than those prescribed or required for medical reasons: No Advance Directives: No Advance Directives Information Provided: No Advance Directives Date on File: 11/21/22 service: No Current occupational status: retired Cognitive needs: No Hearing needs: No Vision needs: Yes (glasses) Physical Exam ED Vital Signs: Vital Signs - 24 hr 02/05/23 15:40 02/05/23 17:59 Temperature 97.3 F 98.1 F Pulse Rate 87 93 Respiratory Rate 18 18 Blood Pressure 136/95 H 149/87 H Pulse Oximetry 96 95 Oxygen Delivery Method Room Air Room Air BMI result Body Mass Index 27.9 Const General: healthy appearing, comfortable, no acute distress, alert and awake Nutritional Appearance: well nourished Orientation/consciousness: patient oriented x3 HENMT Head: Yes normocephalic and Yes atraumatic Eyes Eyelids: Yes eyelids normal Conjunctivae: conjunctivae normal Sclerae: sclerae normal Corneas: corneas normal Pupils: Equal, round and reactive pupils present EOM: EOMs intact bilaterally Neck Neck: Yes full ROM Resp Effort & Inspection: normal respiratory effort, able to speak in complete sentences and not labored Cardio Rate: regular rate Rhythm: regular rhythm GI Inspection: No distended Palpation (GI): Soft to palpation, not firm, nontender, no guarding and not rigid Auscultation: normoactive bowel sounds Skin General skin exam: no rashes or lesions noted and elasticity normal Neuro General: patient oriented x3 Cranial nerves: Yes Equal, round and reactive pupils present and Yes Bilaterally intact EOM present Cognition (Neuro): normal cognition Extrem Other: Moving all extremities well without any obvious deformities Course Course Course Narrative: RME; 82 yold female presents to the ED for RLQ pain. Patient has pmh of chronic abdominal pain. Patient states no SYmptoms. labs ordered Reevaluation(s) Reevaluation #1: Patient's x-ray findings consistent with moderate to large stool burden. Constipation is likely the cause of the patient's discomfort. We will treat with MiraLax, lactulose and dietary instructions. Time: 19:08 Medical Decision Making Medical Decision Making [facility] Narrative: 82-year-old female with a history of chronic abdominal pain presents for evaluation of same. Labs are unremarkable, chemistries all within normal limits. Her white count is 4.3. Urine does not show any evidence of infection. The patient's abdominal exam is reassuring. She has no significant tenderness, no rebound or guarding. Her abdomen is soft and nondistended. Will get a KUB to assess for constipation as I feel that is the most likely cause of her symptoms. Differential Diagnosis Constipation Obstruction Colitis Diverticulitis UTI Lab Data [facility] Lab Attestation statement: I reviewed the patient's lab results. 02/05/23 16:16 02/05/23 16:16 Labs: Lab Results 02/05/23 02/05/23 Range/Units 16:16 16:16 WBC 4.3 L (4.8-10.8) X10*3/uL RBC 3.69 L (4.20-5.50) X10*6/uL Hgb 11.5 L (12.0-16.0) g/dl Hct 34.7 L (37.0-47.0) % MCV 94.0 (80.0-98.0) fL MCH 31.2 (27.0-33.0) pg MCHC 33.1 (31.0-35.0) g/dl RDW 13.2 (11.0-16.0) % Plt Count 134 L (160-400) X10*3/uL MPV 11.4 (9.4-12.3) fL Immature Gran % (Auto) 0.2 (0.0-0.4) % Neut % (Auto) 76.5 H (45-73) % Lymph % (Auto) 14.5 L (20-40) % [place] % (Auto) 6.2 (2-11) % Eos % (Auto) 2.1 (0-4) % Baso % (Auto) 0.5 (0-2) % Lymph # (Auto) 0.6 L (1.2-4.9) X10*3/uL [place] # (Auto) 0.3 (0.1-1.2) X10*3/uL Eos # (Auto) 0.1 (0.0-0.4) X10*3/uL Baso # (Auto) 0.0 (0.0-0.2) X10*3/uL Abs Immat Gran (auto) 0.01 (0.00-0.03) X10*3/uL Absolute Neuts (auto) 3.3 (2.0-8.3) x10*3/uL Absolute Nucleated RBC 0.000 (0.0-0.012) X10*3/uL Nucleated RBC % (auto) 0.0 (0.0-0.2) /100WBC Sodium 142 (135-145) mmol/L Potassium 4.2 (3.3-5.1) mmol/L Chloride 103 (96-108) mmol/L Carbon Dioxide 28 (22-29) mmol/L Anion Gap 15 (12-20) BUN 14 (9-16) mg/dL Creatinine 0.87 (0.5-1.4) mg/dL Estim Creat Clear Calc 52.7 Estimated GFR > 60 Random Glucose 103 (60-115) mg/dL Calcium 9.6 (8.4-10.2) mg/dL Total Bilirubin 0.9 (0.0-1.0) mg/dL AST 18 (5-31) U/L ALT 12 (0-31) U/L Alkaline Phosphatase 110 (39-117) U/L Total Protein 7.0 (6.5-8.0) g/dL Albumin 4.3 (3.5-5.0) g/dL Discharge Plan Discharge Clinical Impression: Abdominal pain, Constipation Patient Disposition: Home, Self-Care Instructions: Constipation (ED), High Fiber Diet (ED) Additional Instructions: Your x-ray shows significant constipation. You blood work was reassuring. Take MiraLax every night for the next month. Take lactulose as directed for constipation. Increase fluid intake. Increase fiber intake in your diet or with supplementation You may use enema suppositories if did not have a bowel movement in the next 2 days Follow-up with your primary doctor Prescriptions: New polyethylene glycol 3350 [Miralax] 17 gram powder in packet 17 g PO DAILY Qty: 30 0RF lactulose 20 gram/30 mL solution 20 g PO BID Qty: 1200 0RF No Action valsartan 80 mg tablet 80 mg PO BID Qty: 180 2RF Rx Instructions: New Dose famotidine 20 mg tablet 20 mg PO BID PRN (Reason: heartburn) 30 Days Qty: 60 1RF dicyclomine 10 mg capsule 10 mg PO Q6H PRN (Reason: cramps) 10 Days Qty: 40 0RF docusate sodium [Colace] 100 mg capsule 100 mg PO BID Qty: 20 0RF alprazolam 0.25 mg Tablet 0.25 mg PO BID simethicone 125 mg Tablet,Chewable 125 mg PO QID PRN (Reason: gas) hydroxyzine HCl 25 mg tablet 25 mg PO TID PRN (Reason: nausea and vomiting) Qty: 14 0RF fexofenadine [[facility] Allergy] 180 mg tablet 180 mg PO Q24H Qty: 30 0RF citalopram 10 mg tablet 5 mg PO BEDTIME fluticasone propionate 50 mcg/actuation spray,suspension 1 spray INTRANASAL DAILY 30 Days Qty: 16 3RF Rx Instructions: administer into each nostril cholecalciferol (vitamin D3) 50 mcg (2,000 unit) tablet 50 mcg PO DAILY Qty: 90 3RF betamethasone dipropionate 0.05 % lotion 1 appl topical BID PRN (Reason: skin irritation) Qty: 60 0RF albuterol sulfate 90 mcg/actuation HFA aerosol inhaler 1 inh inhalation QID PRN (Reason: shortness of breath or wheezing) Qty: 6.7 0RF
[2023-02-05 16:20] LABS: MANUAL DIFF FLAG NO
[2023-02-05 16:48] LABS: Alanine Aminotransferase 12 U/L (0-31); Albumin Level 4.3 g/dL (3.5-5.0); Alkaline Phosphatase 110 U/L (39-117); Anion Gap 15 (12-20); Aspartate Amino Transferase 18 U/L (5-31); Bilirubin Total 0.9 mg/dL (0.0-1.0); Blood Urea Nitrogen 14 mg/dL (9-16); Calcium 9.6 mg/dL (8.4-10.2); Carbon Dioxide 28 mmol/L (22-29); Chloride 103 mmol/L (96-108); Creatinine Clr Calc Pharmacy 52.7; Estimated Glomerular Filt Rate > 60; Glucose Random 103 mg/dL (60-115); Potassium 4.2 mmol/L (3.3-5.1); Sodium 142 mmol/L (135-145)
[2023-02-05 16:55] LABS: Basophils Percent Auto 0.5 % (0-2); Eosinophils Absolute Auto 0.1 X10*3/uL (0.0-0.4); Eosinophils Percent Auto 2.1 % (0-4); Hematocrit 34.7 % (37.0-47.0); Hemoglobin 11.5 g/dl (12.0-16.0); Imm Gran Abs Auto 0.01 X10*3/uL (0.00-0.03); Imm Gran Pct Auto 0.2 % (0.0-0.4); Lymphocytes Absolute Auto 0.6 X10*3/uL (1.2-4.9); Lymphocytes Percent Auto 14.5 % (20-40); Mean Corpuscular HGB Conc 33.1 g/dl (31.0-35.0); Mean Corpuscular Hemoglobin 31.2 pg (27.0-33.0); Mean Platelet Volume 11.4 fL (9.4-12.3); Monocytes Absolute Auto 0.3 X10*3/uL (0.1-1.2); Monocytes Percent Auto 6.2 % (2-11); Neutrophils Absolute Auto 3.3 x10*3/uL (2.0-8.3); Neutrophils Percent Auto 76.5 % (45-73); Platelet Count 134 X10*3/uL (160-400); Red Blood Count 3.69 X10*6/uL (4.20-5.50); Red Cell Distribution Width 13.2 % (11.0-16.0); White Blood Count 4.3 X10*3/uL (4.8-10.8)
[2023-02-05 17:59] VITALS: BP 149/87; PULSE 93; RESP 18; TEMP 36.7; O2SAT 95
== END 2023-02-05 19:46 | disposition home or self-care (01) ==
PROVIDERS: Physician Assistant; Emergency Provider Emergency Medicine; PCP Physician Assistant
DX: K59.00 Constipation, unspecified (principal); R10.2 Pelvic and perineal pain; Z87.891 Personal history of nicotine dependence; Z79.899 Other long term (current) drug therapy
CPT/HCPCS: 36415; 74018; 80053; 85025; 99283; 99284

== ENCOUNTER 2023-02-22 09:37 | Outpatient (REF) | payer MEDICARE, OTHER, SELFPAY ==
[2023-02-22 12:07] LABS: Creatinine Urine 106.85 mg/dL; Microalbum/Creatinine Ratio Ur 9.3 ug/mg cr
[2023-02-22 12:11] LABS: Alanine Aminotransferase 10 U/L (0-31); Albumin Level 4.2 g/dL (3.5-5.0); Alkaline Phosphatase 95 U/L (39-117); Anion Gap 13 (12-20); Aspartate Amino Transferase 17 U/L (5-31); Blood Urea Nitrogen 15 mg/dL (9-16); Calcium 10.1 mg/dL (8.4-10.2); Carbon Dioxide 30 mmol/L (22-29); Chloride 103 mmol/L (96-108); Cholesterol 224 mg/dL; Estimated Glomerular Filt Rate 56; Glucose Fasting 85 mg/dL (60-99); HDL Cholesterol 66 mg/dL; LDL Cholesterol Calculated 137 mg/dl; Potassium 4.6 mmol/L (3.3-5.1); Sodium 141 mmol/L (135-145); Total Protein 7.3 g/dL (6.5-8.0); Triglycerides 108 mg/dL
== END 2023-02-22 09:38 | disposition home or self-care (01) ==
LOC: HO.10HDL 09:37
PROVIDERS: Visit Provider Physician Assistant
DX: I10 Essential (primary) hypertension (principal); Z86.73 Personal history of transient ischemic attack (TIA), and cerebral infarction without residual deficits
CPT/HCPCS: 36415; 80053; 80061; 82043

== ENCOUNTER 2023-02-28 15:03 | Outpatient (REF) | payer MEDICARE, OTHER, SELFPAY ==
--- NOTE | ~2023-02-28 | CT_ITS ---
EXAMINATION: CT head/brain wo IV con CLINICAL INFORMATION: Reason for Exam W19.XXXA - Unspecified fall, initial encounter COMPARISON: CT head without contrast 08/14/2022, CT sinus without contrast 01/31/2023 TECHNIQUE: Contiguous axial imaging was performed from the skull base to vertex without intravenous contrast. Sagittal and coronal reformatted images were obtained. This CT examination was performed using dose optimization techniques as appropriate, variously including the following: * Automated exposure control * Adjustment of mA and/or kV according to patient size (this includes techniques or standardized protocols for targeted exams where dose is matched to indication/reason for exam; i.e. extremities or head) Use of iterative reconstruction technique DLP: 739 mGy-cm FINDINGS: No acute osseous or soft tissue abnormality. There is bilateral thinning of the parietal calvarium. The mastoid air cells and visualized portions of the paranasal sinuses are well aerated. There is no evidence of acute intracranial hemorrhage or territorial infarction. No abnormal mass effect or midline shift is seen. [place] to white matter differentiation is well preserved. No extra-axial fluid collections are identified. There is mild generalized volume loss with stable disproportionate ventriculomegaly. Confluent periventricular and deep white matter hypoattenuation most likely reflects severe small vessel ischemic. Bilateral basal ganglia enlarged perivascular spaces. CT/CT head/brain wo IV con IMPRESSION: 1. No new or acute intracranial abnormality including hemorrhage, mass effect, or acute territorial edematous infarction. 2. Stable ventriculomegaly which is disproportionate to the degree of cerebral volume loss. Correlate clinically for normal pressure hydrocephalus. 3. Confluent periventricular and deep white matter hypodensity most likely represents sequela of severe chronic microvascular ischemia
== END 2023-02-28 15:04 | disposition home or self-care (01) ==
LOC: HO.CT 15:03
PROVIDERS: PCP Physician Assistant; Visit Provider Nurse Practitioner Family
DX: Z13.89 Encounter for screening for other disorder (principal)
CPT/HCPCS: 70450

== ENCOUNTER 2023-02-28 21:21 | Emergency (ER) | payer MEDICARE, OTHER, SELFPAY ==
--- NOTE | ~2023-02-28 | XR_ITS ---
EXAMINATION: XR PELVIS CLINICAL INFORMATION: Left groin pain after fall COMPARISON: KUB 12/11/2022, CT abdomen pelvis 12/09/2022 TECHNIQUE: AP view of the pelvis. FINDINGS: Marked degenerative changes are present at the pubic symphysis with sclerosis and erosions. The inferior pubic ramus, there is a nondisplaced fracture present which did not appear to be present on the 12/11/2022 study. A fracture involving the superior pubic ramus cannot be entirely excluded. No hip fractures are seen. Vascular calcifications are present. XR/XR pelvis 1-2V IMPRESSION: 1. Fracture of the inferior pubic ramus on the left. A fracture involving the superior pubic ramus cannot be entirely excluded. CT could be useful for further evaluation. 2. Degenerative changes pubic symphysis.
--- NOTE | ~2023-02-28 | CT_ITS ---
EXAMINATION: CT HIP WITHOUT CONTRAST, LEFT CLINICAL INFORMATION: Left-sided pain COMPARISON: Radiograph of pelvis from 02/21/2023. CT images of pelvis from 12/09/2022. TECHNIQUE: Noncontrast multidetector CT imaging examination of the left hip is performed. Axial images and multiplanar reformatted images are reviewed. This CT examination was performed using dose optimization techniques as appropriate, variously including the following: *Automated exposure control *Adjustment of mA and/or kV according to patient size (this includes techniques or standardized protocols for targeted exams where dose is matched to indication/reason for exam; i.e. extremities or head) *Use of iterative reconstruction technique DLP: 612 mGy-cm FINDINGS: This imaging examination is focused on the left hip. The femoral head is well-positioned within the intact acetabulum. The hip joint space is maintained. No evidence of proximal femoral fracture. Bone island of the posterior acetabulum. No suspicious osseous lesion. Comminuted fracture of the left inferior pubic ramus is not significantly displaced. The fracture of the left superior pubic ramus near the degenerated pubic symphysis is displaced by up to 0.2 - 0.3 cm. Patchy hematoma/hemorrhage in left sided space of Retzius and projecting medial to the obturator internus muscle cannot be precisely measure due to its heterogeneity. The hematoma measures approximately 3 cm transverse on image 37 of 88, series 5 and exerts mass effect upon the adjacent urinary bladder. No dilated loops of bowel within the included [id number]. Diverticula of the colon without diverticulitis. No evidence of uterine or left adnexal mass. Urinary bladder is underdistended. There is atherosclerotic calcification of visualized iliac and common femoral arteries. CT/CT hip LT wo IV con IMPRESSION: * There are acute fractures of the left pubic rami. * Associated hemorrhage/hematoma in the left sided space of Retzius and projecting medial to the left obturator internus muscle.
[2023-02-28 21:26] VITALS: PULSE 106; O2SAT 98
[2023-02-28 21:32] VITALS: BP 120/86; PULSE 102; RESP 17; TEMP 36.7; O2SAT 95
[2023-02-28 21:54] VITALS: BP 118/80; PULSE 98; RESP 16; TEMP 35.9; O2SAT 95; BMI 27.6
--- NOTE | 2023-02-28 23:01 | ED_ITS ---
HPI - Fall General Chief Complaint: Fall Stated Complaint: falls and vomiting Time Seen by Provider: 02/28/23 23:00 Source: patient Mode of arrival: ambulatory Limitations: no limitations History of Present Illness HPI Narrative: Patient comes here for falling at home had 2 falls in last 1 week both for mechanical falls. Today earlier patient was in kitchen wearing the loose shoes, lost balance and fell in kitchen landed on her left side most of the weight was in the left hip no head injury loss of consciousness patient's PCP ordered a head CT as outpatient . Patient went home and came back as PCP wanted her to be evaluated. patient complaining of groin pain at this time Related Data Home Medications Medication Instructions Recorded Confirmed alprazolam 0.25 mg tablet 0.25 mg PO BID 01/06/23 02/21/23 simethicone 125 mg chewable tablet 125 mg PO QID PRN gas 01/06/23 02/21/23 citalopram 10 mg tablet 5 mg PO BEDTIME 01/23/23 02/21/23 Previous Rx's Medication Instructions Recorded valsartan 80 mg tablet 80 mg PO BID #180 tabs 07/12/22 famotidine 20 mg tablet 20 mg PO BID PRN heartburn 30 days 09/21/22 #60 tabs docusate sodium 100 mg capsule 100 mg PO BID #20 caps 01/08/23 (Colace) cholecalciferol (vitamin D3) 50 50 mcg PO DAILY #90 tabs 01/23/23 mcg (2,000 unit) tablet fluticasone propionate 50 1 spray intranasal DAILY 30 days 01/23/23 mcg/actuation nasal #16 grams spray,suspension albuterol sulfate 90 mcg/actuation 1 inh inhalation QID PRN shortness 01/24/23 aerosol inhaler of breath or wheezing #6.7 grams betamethasone dipropionate 0.05 % 1 appl topical BID PRN skin 01/24/23 lotion irritation #60 mL fexofenadine 180 mg tablet 180 mg PO Q24H #30 tabs 01/24/23 ([facility] Allergy) hydroxyzine HCl 25 mg tablet 25 mg PO TID PRN nausea and 01/24/23 vomiting #14 tabs lactulose 20 gram/30 mL oral 20 g (30 mL) PO BID #1,200 mL 02/05/23 solution polyethylene glycol 3350 17 gram 17 g PO DAILY #30 ea 02/05/23 oral powder packet (Miralax) dicyclomine 10 mg capsule 10 mg PO Q6H PRN cramps 10 days 02/10/23 #40 caps Allergies Allergy/AdvReac Type Severity Reaction Status Date / Time buspirone Allergy Intermediate Rash Verified 02/28/23 21:54 Sulfa (Sulfonamide Allergy Intermediate RASH Verified 02/28/23 21:54 Antibiotics) amoxicillin [From AUGMENTIN] Allergy Unknown PER H&P Verified 02/28/23 21:54 clavulanic acid Allergy Unknown PER H&P Verified 02/28/23 21:54 [From AUGMENTIN] garlic [GARLIC] Allergy Unknown PER H&P Verified 02/28/23 21:54 metronidazole [From FLAGYL] Allergy Unknown OCULAR Verified 02/28/23 21:54 MIGRAINES penicillamine Allergy Unknown Unknown Verified 02/28/23 21:54 ciprofloxacin AdvReac Intermediate neuropathic Verified 02/28/23 21:54 pain lisinopril AdvReac Intermediate Cough Verified 02/28/23 21:54 nitrofurantoin AdvReac Mild GI side Verified 02/28/23 21:54 effects environmental Allergy Unknown Unknown Uncoded 02/28/23 21:54 flagyl Allergy Unknown Unknown Uncoded 02/28/23 21:54 From KEFLEX Allergy Unknown RASH Uncoded 02/28/23 21:54 Metoprolol Tartrate Allergy Unknown Unknown Uncoded 02/28/23 21:54 Sulfacet-R Allergy Unknown Unknown Uncoded 02/28/23 21:54 Review of Systems Review of Systems: Yes all other systems are reviewed and are negative PMFSH Past Medical History Medical History Anxiety Arthritis Diverticulitis GERD (gastroesophageal reflux disease) Heart murmur HTN (hypertension) Irritable bowel Neuropathy Surgical History History of appendectomy History of tonsillectomy Hx of colonoscopy Hx of esophagogastroduodenoscopy Family History Family History Father No problems noted. Mother No problems noted. Social History Social History Household Members: Children Housing: House Are you a primary nonfarm animal caretaker to a significant other at home: No Do you presently have visiting nurse or other home services: No Alcohol intake: never Patient Tobacco Use Status: Former Tobacco user Quit Date: 2013 Smoked in Last 30 Days: No e-Cigarette/Vaping Use: Never Used Second Hand Smoke Exposure: No Use of substances other than those prescribed or required for medical reasons: No Advance Directives: No Advance Directives Information Provided: No Advance Directives Date on File: 11/21/22 service: No Current occupational status: retired Cognitive needs: No Hearing needs: No Vision needs: Yes (glasses) Physical Exam Vital Signs: Vital Signs: Last Vital Signs Temp 98.2 F 03/01/23 05:40 Pulse 97 03/01/23 05:40 Resp 17 03/01/23 05:40 BP 121/78 03/01/23 05:40 Pulse Ox 94 03/01/23 05:40 O2 Del Method Room Air 03/01/23 05:40 BMI result Body Mass Index 27.6 Appearance: Alert. Oriented X3. No acute distress. Eyes: PERRLA, No Nystagmus ENT: Pharynx normal. Oral Mucosa moist atraumatic normocephalic Neck: Normal inspection. Neck supple. CVS: Normal heart rate and rhythm. Pulses normal. Respiratory: No respiratory distress. Equal air entry bilateral, no wheezing/rales/rhonchi Abdomen: Soft and nontender. Bowel sounds are present, no mass palpable, no CVA tenderness Skin: Skin warm and dry. Normal skin color. Normal skin turgor. Extremities: No lower extremity edema. No calf tenderness old bruising on upper extremity dip tenderness left groin area no deformity good range of movement Neuro: Oriented X 3. No motor deficit. No sensory deficit.No cerebellar signs , cranial nerves II-XII intact Medications Administered Discontinued Medications Generic Name Dose Route Start Last Admin Trade Name Freq PRN Reason Stop Dose Admin Lorazepam 0.5 mg 03/01/23 01:03 03/01/23 01:09 Lorazepam 0.5 Mg Tablet PO 03/01/23 01:04 0.5 mg ONCE ONE Administration Ondansetron HCl 4 mg 03/01/23 01:03 03/01/23 01:09 Ondansetron Odt 4 Mg Tab.Rapdis TRANSLINGU 03/01/23 01:04 4 mg ONCE ONE Administration Medical Decision Making Medical Decision Making [facility] Narrative: Patient s/p post mechanical for x-ray showed old inferior pubic rami fracture on the left side. Patient lives alone will get Case Management involved for placement in rehab Lab Data [facility] Lab Attestation statement: I reviewed the patient's lab results. 03/01/23 00:47 03/01/23 00:47 Labs: Lab Results 03/01/23 03/01/23 Range/Units 00:47 00:47 WBC 7.1 (4.8-10.8) X10*3/uL RBC 3.01 L (4.20-5.50) X10*6/uL Hgb 9.3 L (12.0-16.0) g/dl Hct 28.3 L (37.0-47.0) % MCV 94.0 (80.0-98.0) fL MCH 30.9 (27.0-33.0) pg MCHC 32.9 (31.0-35.0) g/dl RDW 13.2 (11.0-16.0) % Plt Count 122 L (160-400) X10*3/uL MPV 11.1 (9.4-12.3) fL Immature Gran % (Auto) 0.8 H (0.0-0.4) % Neut % (Auto) 86.3 H (45-73) % Lymph % (Auto) 5.9 L (20-40) % [place] % (Auto) 6.8 (2-11) % Eos % (Auto) 0.1 (0-4) % Baso % (Auto) 0.1 (0-2) % Lymph # (Auto) 0.4 L (1.2-4.9) X10*3/uL [place] # (Auto) 0.5 (0.1-1.2) X10*3/uL Eos # (Auto) 0.0 (0.0-0.4) X10*3/uL Baso # (Auto) 0.0 (0.0-0.2) X10*3/uL Abs Immat Gran (auto) 0.06 H (0.00-0.03) X10*3/uL Absolute Neuts (auto) 6.1 (2.0-8.3) x10*3/uL Absolute Nucleated RBC 0.000 (0.0-0.012) X10*3/uL Nucleated RBC % (auto) 0.0 (0.0-0.2) /100WBC Sodium 138 (135-145) mmol/L Potassium 4.2 (3.3-5.1) mmol/L Chloride 104 (96-108) mmol/L Carbon Dioxide 27 (22-29) mmol/L Anion Gap 11 L (12-20) BUN 23 H (9-16) mg/dL Creatinine 0.85 (0.5-1.4) mg/dL Estim Creat Clear Calc 53.6 Estimated GFR > 60 Random Glucose 139 H (60-115) mg/dL Calcium 9.9 (8.4-10.2) mg/dL Total Bilirubin 0.7 (0.0-1.0) mg/dL AST 22 (5-31) U/L ALT 14 (0-31) U/L Alkaline Phosphatase 93 (39-117) U/L Total Protein 6.5 (6.5-8.0) g/dL Albumin 3.9 (3.5-5.0) g/dL Independent Interpretation I performed an independent interpretation of an: EKG Interpretation: heart rate 96 beats per minute first-degree heart block no acute ST-t wave changes, no acute ischemia Discharge Plan Discharge Clinical Impression: Closed fracture of pubic ramus Patient Disposition: Still a Patient Prescriptions: No Action valsartan 80 mg tablet 80 mg PO BID Qty: 180 2RF Rx Instructions: New Dose famotidine 20 mg tablet 20 mg PO BID PRN (Reason: heartburn) 30 Days Qty: 60 1RF docusate sodium [Colace] 100 mg capsule 100 mg PO BID Qty: 20 0RF dicyclomine 10 mg capsule 10 mg PO Q6H PRN (Reason: cramps) 10 Days Qty: 40 0RF alprazolam 0.25 mg Tablet 0.25 mg PO BID simethicone 125 mg Tablet,Chewable 125 mg PO QID PRN (Reason: gas) hydroxyzine HCl 25 mg tablet 25 mg PO TID PRN (Reason: nausea and vomiting) Qty: 14 0RF fexofenadine [[facility] Allergy] 180 mg tablet 180 mg PO Q24H Qty: 30 0RF polyethylene glycol 3350 [Miralax] 17 gram powder in packet 17 g PO DAILY Qty: 30 0RF lactulose 20 gram/30 mL solution 20 g PO BID Qty: 1200 0RF citalopram 10 mg tablet 5 mg PO BEDTIME fluticasone propionate 50 mcg/actuation spray,suspension 1 spray INTRANASAL DAILY 30 Days Qty: 16 3RF Rx Instructions: administer into each nostril cholecalciferol (vitamin D3) 50 mcg (2,000 unit) tablet 50 mcg PO DAILY Qty: 90 3RF betamethasone dipropionate 0.05 % lotion 1 appl topical BID PRN (Reason: skin irritation) Qty: 60 0RF albuterol sulfate 90 mcg/actuation HFA aerosol inhaler 1 inh inhalation QID PRN (Reason: shortness of breath or wheezing) Qty: 6.7 0RF
[2023-03-01] VITALS (8 sets, daily range): BP systolic 108–146; BP diastolic 62–93; PULSE 77–116; RESP 12–19; TEMP 36.4–36.9; O2SAT 93–99
--- NOTE | 2023-03-01 00:04 | ECG_ITS ---
Test Reason : FALL Blood Pressure : / mmHG Vent. Rate : 096 BPM Atrial Rate : 096 BPM P-R Int : 210 ms QRS Dur : 090 ms QT Int : 370 ms P-R-T Axes : 053 012 034 degrees QTc Int : 467 ms Sinus rhythm with 1st degree A-V block Otherwise normal ECG When compared with ECG of 04-FEB-2023 12:10, QT has lengthened Referred By: Declan Combs Electronically Signed By:Guillaume Callahan
--- NOTE | 2023-03-01 00:52 | MHC.EDTECH ---
pt moved from 22H to room 2. pt changed over into hospital gown, ekg and labs obtained, pt placed on cardiac monitor technician. vitals updated. pt resting comfortably at this time, call mcmahan in place.
[2023-03-01 00:54] LABS: MANUAL DIFF FLAG NO
[2023-03-01 00:59] LABS: Basophils Percent Auto 0.1 % (0-2); Eosinophils Percent Auto 0.1 % (0-4); Hematocrit 28.3 % (37.0-47.0); Hemoglobin 9.3 g/dl (12.0-16.0); Imm Gran Abs Auto 0.06 X10*3/uL (0.00-0.03); Imm Gran Pct Auto 0.8 % (0.0-0.4); Lymphocytes Absolute Auto 0.4 X10*3/uL (1.2-4.9); Lymphocytes Percent Auto 5.9 % (20-40); Mean Corpuscular HGB Conc 32.9 g/dl (31.0-35.0); Mean Corpuscular Hemoglobin 30.9 pg (27.0-33.0); Mean Platelet Volume 11.1 fL (9.4-12.3); Monocytes Absolute Auto 0.5 X10*3/uL (0.1-1.2); Monocytes Percent Auto 6.8 % (2-11); Neutrophils Absolute Auto 6.1 x10*3/uL (2.0-8.3); Neutrophils Percent Auto 86.3 % (45-73); Platelet Count 122 X10*3/uL (160-400); Red Blood Count 3.01 X10*6/uL (4.20-5.50); Red Cell Distribution Width 13.2 % (11.0-16.0); White Blood Count 7.1 X10*3/uL (4.8-10.8)
[2023-03-01 01:09] LABS: Alanine Aminotransferase 14 U/L (0-31); Albumin Level 3.9 g/dL (3.5-5.0); Alkaline Phosphatase 93 U/L (39-117); Anion Gap 11 (12-20); Aspartate Amino Transferase 22 U/L (5-31); Bilirubin Total 0.7 mg/dL (0.0-1.0); Blood Urea Nitrogen 23 mg/dL (9-16); Calcium 9.9 mg/dL (8.4-10.2); Carbon Dioxide 27 mmol/L (22-29); Chloride 104 mmol/L (96-108); Creatinine Clr Calc Pharmacy 53.6; Estimated Glomerular Filt Rate > 60; Glucose Random 139 mg/dL (60-115); Potassium 4.2 mmol/L (3.3-5.1); Sodium 138 mmol/L (135-145); Total Protein 6.5 g/dL (6.5-8.0)
[2023-03-01] MEDS: LORazepam 0.5 MG TABLET PO (01:09)
[2023-03-01] MEDS: Ondansetron ODT 4 MG TAB.RAPDIS TRANSLINGU (01:09)
--- NOTE | 2023-03-01 07:37 | PC.NURSE ---
0710 assisted pt to bathroom. pleasantly confused. unsteady gait when ambulated to bathroom. will continue continue to observe. regular diet ordered.
[2023-03-01 07:56] LABS: COVID-19 Test Negative (Negative); IDNOW Serial# BCCEAD1C
--- NOTE | 2023-03-01 09:24 | PHA.MEDREC ---
Pharmacy Consult ? Medication Reconciliation Pharmacy has completed the medication reconciliation. Patient was on docusate and lactulose previously but not taking anymore
--- NOTE | 2023-03-01 09:47 | PC.NURSE ---
pt seen by case management. plan of care is to go to [facility] around 1pm today. Pt aware of plan of care.
--- NOTE | 2023-03-01 10:02 | MHC.CM.ED ---
Received case management consult overnight. Patient came to the ER due to a fall. Work up showed left pubic ramus fracture. Physical therapy eval completed. Rehab is recommended. Met with patient in regards to discharge planning. Patient lives with her son, ambulates independently and had no services prior to coming to the hospital. PCP verified. Patient received 3 Pfizer vaccines. Patient requesting referral to [facility]. T/W explained patient has not had inpatient stay and [facility] Also explained [facility] would cover 80%. Patient would need to pay 20%. Patient aware Medicare will cover acute inpatient rehab. Patient agreeable to referral being broadcasted to all 3 acute rehab facilities. [facility] able to offer a bed. Patient accepts and can leave at 1pm. Patient's friend, Francisca, made aware via telephone at [phone] at patient's request. Patient, Vanessa ELLISON and Marge GAVIN aware. Continue to monitor for d/c needs.
--- NOTE | 2023-03-01 11:38 | PC.NURSE ---
Spoke with pts son regarding plan of care. Told son that pt will be going to [facility] at 1pm via EMS.
--- NOTE | 2023-03-01 13:43 | PC.NURSE ---
Report given to TERRA Womack at [facility].
== END 2023-03-01 13:48 | disposition still patient (30) ==
PROVIDERS: Emergency Provider Internal Medicine; PCP Physician Assistant
DX: S32.592A Other specified fracture of left pubis, initial encounter for closed fracture (principal); R51.9 Headache, unspecified; M54.2 Cervicalgia; R10.2 Pelvic and perineal pain; R94.31 Abnormal electrocardiogram [ECG] [EKG]; W01.0XXA Fall on same level from slipping, tripping and stumbling without subsequent striking against object, initial encounter; Y93.9 Activity, unspecified; Y92.9 Unspecified place or not applicable; Y99.9 Unspecified external cause status; Z20.822 Contact with and (suspected) exposure to COVID-19; Z20.828 Contact with and (suspected) exposure to other viral communicable diseases; Z79.899 Other long term (current) drug therapy; Z87.891 Personal history of nicotine dependence
CPT/HCPCS: 36415; 70450; 72170; 73700; 80053; 85025; 87635; 93005; 97162; 99285

== ENCOUNTER 2023-03-20 12:11 | Outpatient (AMB) | payer MEDICARE, OTHER, SELFPAY ==
--- OUTSIDE RECORDS SUMMARY | 2023-03-20 12:15 | XMS_ITS ---
Author Name Anatoliy Escobar Address [address] [place] [address] Organization [facility] Address [address] [place] [address] Care Team Providers Care Crook Operator Name Role Phone Anatoliy Escobar [facility] [phone] PROBLEMS Type Condition ICD9-CM Code [id number] Code Onset Dates Condition Status SNOMED Code Problem Gastroesophageal reflux disease without esophagitis K21.9 Active 12113099 5 Problem Diverticulitis of large intestine without perforation or abscess without bleeding K57.32 Active 912323935 Problem Irritable bowel syndrome with diarrhea K58.0 Active 538189631 Problem Irritable bowel syndrome without diarrhea K58.9 Active 13522169 Problem Abnormal CT scan, sigmoid colon R93.3 Active Problem Diverticulosis K57.90 Active 638163023 Problem Hiatal hernia K44.9 Active 62451444 Problem History of adenomatous polyp of colon Z86.010 Active 699815964 Problem Irritable bowel syndrome with constipation K58.1 Active 935347398 Problem Gastroesophageal reflux disease, unspecified whether esophagitis present K21.9 Active Problem Irritable bowel syndrome with both constipation and diarrhea K58.2 Active 41654959 Problem GERD (gastroesophageal reflux disease) K21.9 Active Problem Rectal bleeding K62.5 Active 04088802 Problem LLQ abdominal pain R10.32 Active 24074 6002 Problem Heme + stool R19.5 Active 955615032 ALLERGIES Substance Reaction Event Type Date Status garlic Unknown Non Drug Allergy Dec, Active Flagyl Unknown Drug Allergy Dec, Active Augmentin Unknown Drug Allergy Dec, Active Sulfa Unknown Drug Allergy Dec, Active ENCOUNTERS Encounter Location Date Diagnosis [facility] [address] [place] [address] 23 Feb, 2023 [facility] [address] [place] [address] 19 Feb, 2023 [facility] [address] [place] [address] 16 Feb, 2023 [facility] [address] [place] [address] January, [facility] [address] [place] January, [facility] [address] [place] January, [facility] [address] [place] [address] 24 Dec, 2022 [facility] [address] [place] [address] 18 Dec, 2022 [facility] [address] [place] 11 Dec, 2022 [facility] [address] [place] [address] 10 Dec, 2022 [facility] [address] [place] [address] 05 Dec, 2022 Heme + stool R19.5 ; LLQ abdominal pain R10.32 ; Gastroesophageal reflux disease, unspecified whether esophagitis present K21.9 ; History of adenomatous polyp of colon Z86.010 and Irritable bowel syndrome with constipation K58.1 [facility] [address] [place] [address] Nov, [facility] [address] [place] [address] Nov, [facility] [address] [place] [address] Oct, [facility] [address] [place] [address] Sep, [facility] [address] [place] [address] Sep, [facility] [address] [place] [address] 17 Sep, 2022 [facility] [address] [place] 27 Aug, 2022 [facility] [address] [place] 13 Aug, 2022 [facility] [address] [place] Aug, [facility] [address] [place] 28 Jul, 2022 [facility] [address] [place] Jul, [facility] [address] [place] Jun, [facility] [address] [place] [address] 29 May, 2022 [facility] [address] [place] Mar, [facility] [address] [place] Feb, [facility] [address] [place] Feb, [facility] [address] [place] Dec, Gastroesophageal reflux disease without esophagitis K21.9 and Irritable bowel syndrome with both constipation and diarrhea K58.2 [facility] [address] [place] 10 Oct, 2021 [facility] [address] [place] 07 Oct, 2021 [facility] [address] [place] Sep, [facility] [address] [place] 30 Sep, 2021 [facility] [address] [place] [address] Sep, [facility] [address] [place] 24 Sep, 2021 Rectal bleeding K62.5 [facility] [address] [place] [address] Jul, [facility] [address] [place] 22 Jun, 2021 [facility] [address] [place] [address] 19 Jun, 2021 [facility] [address] [place] 18 Jun, 2021 [facility] [address] [place] [address] 15 Jun, 2021 [facility] [address] [place] Jun, [facility] [address] [place] [address] 23 Apr, 2021 [facility] [address] [place] [address] Apr, Irritable bowel syndrome with both constipation and diarrhea K58.2 ; GERD (gastroesophageal reflux disease) K21.9 and Hiatal hernia K44.9 [facility] [address] [place] [address] Mar, [facility] [address] [place] [address] 24 Feb, 2021 [facility] [address] [place] [address] 24 Feb, 2021 [facility] [address] [place] 15 Feb, 2021 [facility] [address] [place] [address] 15 Feb, 2021 [facility] [address] [place] [address] 11 Feb, 2021 [facility] [address] [place] [address] 28 Dec, 2020 [facility] [address] [place] [address] 22 Jun, 2020 [facility] [address] [place] 14 Jun, 2020 [facility] [address] [place] Jun, [facility] [address] [place] Feb, [facility] [address] [place] Feb, [facility] [address] [place] Feb[place] [facility] [address] [place] January, [facility] [address] [place] [address] Oct, [facility] [address] [place] Sep, Irritable bowel syndrome with both constipation and diarrhea K58.2 ; GERD (gastroesophageal reflux disease) K21.9 and Hiatal hernia K44.9 [facility] [address] [place] [address] Sep, [facility] [address] [place] [address] Sep, [facility] [address] [place] Sep, [facility] [address] [place] Sep, [facility] [address] [place] Sep, [facility] [address] [place] Aug, [facility] [address] [place] [address] Aug, [facility] [address] [place] Aug, [facility] [address] [place] [address] Jun, [facility] [address] [place] [address] Jun, [facility] Outpatient [address] [place] [phone] Jun, GERD (gastroesophageal reflux disease) K21.9 ; Hiatal hernia K44.9 ; Abnormal abdominal CT scan R93.5 and Colon polyp K63.5 [facility] [address] [place] [address] Jun, [facility] [address] [place] [address] May, [facility] [address] [place] [address] May, [facility] [address] [place] [address] Mar, [facility] [address] [place] [address] Feb, [facility] [address] [place] [address] January, [facility] [address] [place] [address] Dec, [facility] [address] [place] [address] Dec, Irritable bowel syndrome with constipation K58.1 ; Abnormal CT scan, sigmoid colon R93.3 ; Diverticulosis K57.90 and Gastroesophageal reflux disease without esophagitis K21.9 [facility] [address] [place] [address] Dec, [facility] [address] [place] [address] Dec, [facility] [address] [place] [address] Dec, [facility] [address] [place] [address] Mar, [facility] [address] [place] [address] Oct, Irritable bowel syndrome with both constipation and diarrhea K58.2 [facility] [address] [place] [address] Oct, [facility] [address] [place] [address] May, [facility] [address] [place] [address] Apr, [facility] [address] [facility] [place] [place] [address] Mar, [facility] [address] [place] [address] [place] Mar, [facility] [address] [place] [address] [place] [address] Feb, Irritable bowel syndrome with diarrhea K58.0 [facility] [address] [place] [address] [place] [address] Feb, [facility] [address] [place] [address] [place] [address] Sep, [facility] [address] [place] [address] Aug, Irritable bowel syndrome without diarrhea K58.9 ; Gastroesophageal reflux disease without esophagitis K21.9 and Diverticulitis of large intestine without perforation or abscess without bleeding K57.32 [facility] [address] [place] [address] May, [facility] [address] [place] [address] Apr, [facility] [address] [place] [address] Feb, [facility] [address] [place] [address] Feb, Irritable bowel syndrome 564.1 ; Hypertension 401.9 ; Change in bowel habits 787.99 and Diverticulitis of colon 562.11 [facility] [address] [place] [address] Aug, [facility] Outpatient [address] [place] [phone] Sep, [facility] [address] [place] [address] Sep, [facility] [address] [place] [address] Jul, [facility] [address] [place] [address] Jul, Abdominal pain, epigastric 789.06 ; Colon cancer screening V76.51 and History of adenomatous polyp of colon V12.72 [facility] Outpatient [address] [place] [id number] 04 Jun, 2007 [facility] ER [address] [place] [phone] Nov, [facility] ER [address] [place], [place] [id number] 08 Dec, 2003 IMMUNIZATIONS Vaccine Route Administration Date Status Influenza Unknown May 24, 2022 Administered Influenza Unknown Jun 23, 2021 Administered Influenza Unknown Jun 04, 2020 Administered Influenza Unknown Jun 18, 2019 Administered Influenza Unknown Jun 13, 2018 Administered Influenza Unknown May 05, 2017 Administered Flu vaccine no Preserv 3 and > Unknown May 05 015 Administered Flu vaccine no Preserv 3 and > Unknown Jun 17 14 Administered SOCIAL HISTORY Qualifiers Date Former Smoker REASON FOR REFERRAL FUNCTIONAL STATUS PLAN OF CARE Activity Details VITAL SIGNS Weight 172 lbs 2022-12-07 Weight 191 lbs 2021-12-14 Weight 185 lbs 2021-04-20 Weight 188 lbs 2019-10-03 Weight 190 lbs 2018-12-26 Weight 199 lbs 2017-10-17 Weight 209 lbs 2015-08-07 Weight 207 lbs 2015-02-06 Weight 209 lbs 2012-07-13 Height 67.75 in 2022-12-07 Height 67.75 in 2021-12-14 Height 67.75 in 2021-04-20 Height 67.75 in 2019-10-03 Height 67.75 in 2018-12-26 Height 67.75 in 2017-10-17 Height 67.75 in 2015-08-07 Height 67.75 in 2015-02-06 Height 67.75 in 2012-07-13 BMI 26.34 kg/m2 2022-12-07 BMI 29.25 kg/m2 2021-12-14 BMI 28.33 kg/m2 2021-04-20 BMI 28.79 kg/m2 2019-10-03 BMI 29.10 kg/m2 2018-12-26 BMI 30.48 kg/m2 2017-10-17 BMI 32.01 kg/m2 2015-08-07 BMI 31.70 kg/m2 2015-02-06 BMI 32.01 kg/m2 2012-07-13 Heart Rate 84 /min 2018-12-26 Heart Rate 84 /min 2012-07-13 Temperature 98.4 degrees Fahrenheit Temperature 97.1 degrees Fahrenheit Temperature 97.3 degrees Fahrenheit Blood pressure systolic 000 mm Hg Blood pressure diastolic 00 mm Hg 2022-12 MEDICATIONS Medication Instructions Dosage Frequency Start Date End Date Duration Status ALPRAZolam 0.25 MG Orally Twice a day 1 tablet 12h Active Famotidine 40 MG Orally Twice a day 1 12h 24 Nov, 2022 90 days Active Zofran 4 MG Orally Q 6 hours prn nausea 1 tablet Jun, 30 day(s) Active Ondansetron 4 MG Orally Every 6 hours as needed for nausea 1 tablet on the tongue and allow to dissolve Dec, 30 day(s) Active Valsartan-hydro CHLOROthiazide 80-12.5 MG Orally Once a day 1 tablet 24h 30 day(s) Active Dicyclomine HCl 10 MG Orally QID prn abdominal cramps/discomfor t 1-2 capsules May, 30 days Active Flonase 50 MCG/ACT Nasally prn 1 spray in each nostril Active Tylenol 325 MG Orally every 4 hrs/prn 1 capsule as needed Active CeleXA 10 MG Orally Once a day 1 tablet 24h 30 day(s) Active Meclizine HCl 25 MG Orally every 12 hrs 1 tablet as needed 12h Active Simethicone 125 MG Orally Four times a day 1 tablet after meals and at bedtime as needed 6h Active Omeprazole 40 MG Orally Twice a day 1 12h Jun, 90 days Active Stool Softener 100 MG Orally as directed 1 capsule as needed Active PROCEDURES Procedure Date Ordered Result Body Site PRES/ABSN URINE INCON ASSESS Oct 17, 2017 TOBACCO NON-USER Oct 03, 2019 UPPER GI ENDOSCOPY, BIOPSY Jun 07, 2019 TOBACCO NON-USER December 26, 2018 COLORECTAL CA SCREEN DOC REV Aug 07, 2015 BMI >=30 CALCUATE W/FOLLOWUP Oct 17, 2017 DOC MEDS VERIFIED W/PT OR RE December 14, 2021 BP SCR PRFRM RCMDD DEFIND SCR INTVL December 26, 2018 PRES/ABSN URINE INCON ASSESS December 26, 2018 BMI >=30 CALCUATE W/FOLLOWUP February 06, 2015 PRES/ABSN URINE INCON ASSESS Aug 07, 2015 BP SCR NOT PRFRM REC REASON NOS December 07, 2022 DOC MEDS VERIFIED W/PT OR RE December 07, 2022 COLORECTAL CA SCREEN DOC REV February 06, 2015 PRES/ABSN URINE INCON ASSESS February 06, 2015 DOC MEDS VERIFIED W/PT OR RE Apr 20, 2021 LESION REMOVAL COLONOSCOPY Jun 07, 2019 DOC MEDS VERIFIED W/PT OR RE Oct 17, 2017 PRES/ABSN URINE INCON ASSESS Oct 03, 2019 BP SCR PRFRM RCMDD DEFIND SCR INTVL Oct 03, 2019 BMI >=30 CALCUATE W/FOLLOWUP Aug 07, 2015 TOBACCO NON-USER December 07, 2022 BP SCR PRFRM RCMDD DEFIND SCR INTVL Oct 17, 2017 FLU IMMUNIZE ORDER/ADMIN Aug 07, 2015 DOC MEDS VERIFIED W/PT OR RE February 06, 2015 DOC MEDS VERIFIED W/PT OR RE Oct 03, 2019 DOC MEDS VERIFIED W/PT OR RE Aug 07, 2015 TOBACCO NON-USER Oct 17, 2017 FLU IMMUNIZE ORDER/ADMIN Oct 17, 2017 PREHTN/HTN BP DOC INDCD F/U DOC February 06, 2015 TOBACCO NON-USER Apr 20, 2021 BP SCR PRFRM RCMDD DEFIND SCR INTVL Aug 07, 2015 FLU IMMUNIZE ORDER/ADMIN February 06, 2015 TOBACCO NON-USER February 06, 2015 TOBACCO NON-USER December 14, 2021 TOBACCO NON-USER Aug 07, 2015 PATIENT NOT ELIG D/T ACTIVE DX HTN Apr 20, 2021 BP SCR NOT PRFRM REC REASON NOS December 14, 2021 DOC MEDS VERIFIED W/PT OR RE December 26, 2018 RESULTS Name Result Date Reference Range GI BIOPSY 2019-06-07 G.I. BIOPSY CELIAC PANEL #10 2017-03-10 IgA, SERUM [id number] ANTI-GLIADIN AB - IGA 7 <20 ANTI-GLIADIN AB - IGG 4 <20 TRANSGLUTAMINASE AB IGA 1 <4 TRANSGLUTAMINASE AB IGG 1 <6 GI BIOPSY 2012-09-10 G.I. BIOPSY REASON FOR VISIT left voicemail , Not having regular poop, heme + stools, LLQ pain,gerd,hx polyps, FYI, Pain is on left side , in the ER , update, vomiting, patient was in the hospital Sat and again on Monday, Patient presents today for diarrhea, not feeling well , script , was in the er for nausea, feels shes not getting better , went to ER, burning in esophagus, not feeling well , diarrhea , consitpation , ABD PAIN AND CRAMPING, rectal bleeding, was in the er 3 times this past week, was in hospital for acid reflux , bowel issues, was in the hospital /still having pain, was in ER yesterday/waiting onpt call back, Patient presents today for abd discomfort , still has loose stools, loose stools, fyi update , dark stools, STILL HAS SOME BOWEL MOVEMENT AFTER WIPING, feels much better, severe pain, Belal pain in rectum , TERRIBLE PAIN, SPASMS, NAUSEA, very dark stools, Patient presents today for abd pain., was in ER , Was in the emergency room for 10 hours , refill on medication, pt to start famotidine, loose stools, script , PLEASE CALL, ? IBS Symptoms, PATIENT PRESENTS TODAY FOR left side abdpain,gerd,nausea, IBS, R/S OV, IBS, increase reflux and waking her up , VOMITING AND NAUSEA, Patient presents today forIBS, fecal incontinence, diarrhea, fyi, symptoms/reflux , was in ER ,patient hasquestions., constipation, constipation, IBS, r/s appt, constipation, GERD, diverticulosis, abnormalCT scan of colon, constipation/pain, Flagy, left lower abd pain, slight fever, Abdominal pain, Abd pain , loose stools/ waiting on pt call back, RE: Zantac , Patient presents today for abnormal CT Scan, PA for , ER F/u abnormal wall thickening, gaging,reflux and retching, Burning in chest and down to stomach, patient presents today for f/u on Gerd, ? 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 Renteria to be faxed/notes in pt docs for your review, ? diverticulitis, having IBS symptoms/please send the suggested rx's over to pharmacy, follow up, gas,nausea and belching, ? Diverticulitis , severe reflux, records, RE: Procedure on Monday,Bowel Prep RX, COLON RECALL, nausea, reflux, Colon recall Insurance Providers Health Insurance Type Health Plan Insurance Address Health Plan Insurance Phone Health Plan Insurance Name Health Plan Coverage Dates Member ID Patient Relationship to Subscriber Patient Address Patient Phone Patient Name Patient Date of Subscriber ID Subscriber Name Subscriber Date of Group No [employer] [address] [facility] [place] [id number] [facility] [employer] INDEMNITY carla [place] [id number] MEDICARE OF [place] [address] [facility] [place] [address] MED[place] OF [place] [id number]
--- OUTSIDE RECORDS SUMMARY | 2023-03-20 12:15 | XMS_ITS | Patient Health Record ---
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 Role Phone Nick Gomez Primary Care Provider Unavailab Kwadwo Braswell Unavailable [phone] Josh Blanc Unavailable [phone] Julieth Rosa Unavailable [phone] ALLERGIES Allergen (clinical drug ingredient) Drug/Non Drug Allergy documented on EMR Reaction Allergy Type Onset Date Status metronidazole Flagyl Unknown Drug Allergy Act maya Keflex rash Drug Allergy Active Substance with sulfonamide structure and antibacterial mechanism of action (substance) Sulfa Antibiotics Unknown Drug Allergy Active REASON FOR REFERRAL No Information MEDICATIONS Medication SIG (Take, Route, Frequency, Duration) Notes Start Date End Date Status Pristiq 25 MG Orally Once a day Not-Taking Ammonium Lactate 12 % 1 application to affected area Externally to feet Twice a day for 30 days Active Zantac Not-Taking CeleXA Active Ranitidine Not-Takin g Mucinex PRN Active Beconase AQ Not-Taki ng Pepcid famotidine Active Valsartan 40 MG 1 tablet Orally Twice a day for 30 day(s) Active PriLOSEC as needed PRN Not-Taking Valsartan 80 MG 1 tablet Orally Once a day Not-Taking MiraLax Active Calcium + D Not-Taki ng Dicyclomine HCl Acti ve Flovent HFA Not-Taki ng Flonase Active Azithromycin 250 MG 2 tablets on the first day, then 1 tablet daily for 4 days Orally Once a day for 5 day(s) 11/27/2020 Not-Taking ALPRAZolam 20 mg 1x aday Activ e IMMUNIZATIONS Vaccine Route Administration Date Status Comme nts COVID-19 Pfizer BioNTech Vaccine Unknown 06/29/2021 Administered 1st 11/06/2020 2nd SOCIAL HISTORY Tobacco Use: Social History Observation Description Date Details (start date - stop date) Former Smoker NA - NA Sex Assigned At : Social History Observation Description Sex Assigned At Unknown Tobacco Use/Smoking Question Answer Notes Are you a: former smoker Additional Findings: Tobacco Non-User Current no n-smoker Alcohol Screen Question Answer Notes Did you have a drink containing alcohol in the p ast year? No Points 0 Interpretation Negative Tobacco use other than smoking: Question Answer Notes Are you an other tobacco user? No PROBLEMS Problem Type ICD Code Onset Dates Problem Status W/U Status Risk SNOMED Code Notes Problem Other hammer toe(s) (acquired), left foot (M20.42) Active confirmed Acquired hammer toe of left foot (3961246449702870 ) Problem Atherosclerosis of craig artery of both lower extremities, with unspecified presence of clinical manifestation (I70.203) Active confirmed Atherosclerosis of craig arteries of the extremities (453062470265901) Problem Arthritis of joint of lesser toe, left (M19.072) Active confirmed Localized, primary osteoarthritis of the ankle and/or foot (516049946) VITAL SIGNS Height 5 ft 8 in in 02/10/2023 Weight 173 lbs 02/10/2023 BMI 26.3 kg/m2 02/10/2023 Encounters Encounter Location Date Provider Diagnosis [address] [address] 04/05/2022 [facility] [address] 04/05/2022 [facility] [address] 06/23/2022 [facility] [address] 06/24/2022 [facility] [address] 08/19/2022 Kwadwo Hendricks [address] [address] 08/19/2022 Kwadwo Schultzier [facility] [address] 09/20/2022 Kwadwoedmundo Hendricks [facility] [address] 09/20/2022 Kwadwo Hendricks [address] [address] 09/20/2022 Kwadwoedmunod Hendricks Atherosclerosis of craig artery of both lower extremities, with unspecified presence of clinical manifestation I70.203 ; Ingrowing nail L60.0 ; Tinea unguium B35.1 ; Pain in right toe(s) M79.674 and Pain in left toe(s) M79.[address] [address] 11/22/2022 [facility] Ruthie [address] [address] 11/25/2022 Kwadwo Hendricks 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 ; Pain in left toe(s) M79.675 ; Other hammer toe(s) (acquired), left foot M20.42 and Arthritis of joint of lesser toe, left M19.[address] [address] 11/29/2022 Julieth Rosa [address] [address] 12/23/2022 Kwadwo Ruthie [address] [address] 01/06/2023 Kwadwoedmundo Hendricks Atherosclerosis of craig artery of both lower extremities, with unspecified presence of clinical manifestation I70.203 ; Tinea unguium B35.1 ; Pain in right toe(s) M79.674 and Pain in left toe(s) M79.[address] [address] 01/06/2023 Kwadwo Ruthie [address] [address] 01/24/2023 Kwadwo Hendricks [facility] [address] [address] 01/25/2023 Josh Blanc [facility] [address] [address] 02/10/2023 Kwadwo Hendricks Skin ulcer of toe of left foot, limited to breakdown of skin L97.521 ; Pain in left toe(s) M79.675 ; Other hammer toe(s) (acquired), left foot M20.42 ; Arthritis of joint of lesser toe, left M19.072 and Other subluxation of left foot, initial encounter S93.332A [facility] [address] 02/10/2023 Kwadwo Hendricks ASSESSMENTS Encounter Date Diagnosis Assessment Notes Treatment Notes Treatment Clinical Notes 09/20/2022 Ingrowing nail (ICD- 10 - L60.0) 09/20/2022 Atherosclerosis of craig artery of both lower extremities, with unspecified presence of clinical manifestation (ICD-10 - I70.203) 11/25/2022 Non-pressure chronic ulcer of other part of left foot limited to breakdown of skin (ICD-10 - L97.521) 11/25/2022 Pain in left toe(s) (ICD-10 - M79.675) 01/06/2023 Tinea unguium (ICD-1 0 - B35.1) 01/06/2023 Atherosclerosis of craig artery of both lower extremities, with unspecified presence of clinical manifestation (ICD-10 - I70.203) 02/10/2023 Pain in left toe(s) (ICD-10 - M79.675) 02/10/2023 Skin ulcer of toe of left foot, limited to breakdown of skin (ICD-10 - L97.521) Patient Educated with: WOUND CARE INSTRUCTIONS.pdf (WOUND CARE INSTRUCTIONS.pdf ) 01/06/2023 Pain in right toe(s) (ICD-10 - M79.674) 02/10/2023 Other hammer toe(s) (acquired), left foot (ICD-10 - M20.42) 11/25/2022 Other hammer toe(s) (acquired), left foot (ICD-10 - M20.42) 09/20/2022 Tinea unguium (ICD-1 0 - B35.1) 09/20/2022 Pain in right toe(s) (ICD-10 - M79.674) 11/25/2022 Arthritis of joint o f lesser toe, left (ICD-10 - M19.072) 01/06/2023 Pain in left toe(s) (ICD-10 - M79.675) 02/10/2023 Arthritis of joint o f lesser toe, left (ICD-10 - M19.072) 02/10/2023 Other subluxation of left foot, initial encounter (ICD-10 - S93.332A) 09/20/2022 Pain in left toe(s) (ICD-10 - M79.675) 02/10/2023 Other PLAN OF TREATMENT Pending Test Test Name Order Date *Uric Acid, Serum 11/27/2020 58206-HCSHYMJ NAIL, 6 OR MORE 03/23/2021 63893-DDQYUNR NAIL, 6 OR MORE 11/23/2021 45553-XJLXWXE NAIL, 6 OR MORE 09/20/2022 77278-LDJGCTA NAIL, 6 OR MORE 01/06/2023 83718-RBIJZIG NAIL, 6 OR MORE 12/02/2011 37914-ZQGZPCU NAIL, 6 OR MORE 04/06/2012 47625-KHJKIYS NAIL, 6 OR MORE 07/10/2012 67493-SQYFTVB NAIL, 6 OR MORE 10/10/2014 95232-CPEHWBC NAIL, 6 OR MORE 03/24/2015 24194-WPAHVIG NAIL, 6 OR MORE 07/19/2016 69274-FCJGZQY NAIL, 6 OR MORE 01/10/2017 94642-GYKKWPQ NAIL, 6 OR MORE 08/25/2017 67320-VZJZHHN NAIL, 6 OR MORE 02/02/2018 85858-IONVWYU NAIL, 6 OR MORE 11/24/2017 78710-DOJKJPK NAIL, 6 OR MORE 08/07/2018 01028-PURTVQI NAIL, 6 OR MORE 04/16/2019 43749-IEQGLHY NAIL, 6 OR MORE 03/20/2020 02134-WOSZIMH NAIL, 6 OR MORE 09/08/2020 72117-ZXRPFVP NAIL, 6 OR MORE 06/12/2020 99232-Jijogumz Plate 06/12/2020 26652-Tsrwbdpp Plate 09/08/2020 90418-Vxhmwjth Plate 03/20/2020 70730-Lnzcxfwg Plate 04/16/2019 03135-Xbdniebv Plate 09/20/2022 42750-Zmthvqib Plate 11/23/2021 29939-Hwxkwxre Plate 03/23/2021 44515-Vhtfghfv Plate Each Additional 37561-Tmqgejwi Plate Each Additional 81536- Debride <25 sq cm 12/31/2021 90513- Debride <25 sq cm 11/25/2022 95359- Debride <25 sq cm 02/10/2023 84101- Debride <25 sq cm 03/24/2015 04638-FATE SKIN LESIONS, OVER 4 01/07/20 23 99094-VVMK SKIN LESIONS, OVER 4 09/20/19 23 08522-LRJH SKIN LESIONS, 2 TO 4 11/24/19 63523, N8125-XBEFF/INJECT, JOINT/BURSA 0 09/08/2020 54063 - Tenotomy, open flexor 12/01/2017 Next Appt Details Provider Name:Kwadwo Hendricks , 04/11/2023 11:30:00 AM, [address] [facility], [place], [address], Insurance Providers Payer Name Payer Address Payer Phone Subscriber Number Group Number Insured Name Patient Relationship to Insured Coverage Start Date Coverage End Date Medicare National [employer] [address] [place] [address] [id number] Bella Henley Self - patient is the insured [facility] [address] [place] [id number] Bella Henley Self - patient is the insured MEDICAL (GENERAL) HISTORY Medical History History ICD Code back, hip, knee pain transfusions reflux measles chicken pox Anxiety disorder Peripheral neuropathy Surgical History Surgery Date(Month/Year) tonsillectomy appendectomy intestinal blockage 11/2013 Hospitalization History Reason Date(Month/Year) [facility]- stomach pains - Gerd /IBS due to anxiety 01/2021,02/2021 Patient admitted to [facility] days; diverticulitis 12/2014
[2023-03-20 13:25] VITALS: BP 142/82; PULSE 87; TEMP 36.8; O2SAT 98
--- NOTE | 2023-03-20 13:25 | AM.OFFWIN_ITS ---
Intake Vital Signs 03/20/23 13:25 Height 5 ft 6 in BP 142/82 H Blood Pressure Location Lt brachial Position Sitting Pulse 87 Pulse Source Pulse Oximeter Temp 98.3 F Temp Source Temporal Artery Scan Pulse Oximetry (%) 98 Intake Visit Reasons: EP sore throat (lobby,masked, disabled) Intake Note: pt is here for c/o sore throat Patient Tobacco Use Status: Former Tobacco user Quit Date: 2013 Allergies buspirone Allergy (Intermediate, Verified 03/20/23 13:25) Rash Sulfa (Sulfonamide Antibiotics) Allergy (Intermediate, Verified 03/20/23 13:25) RASH amoxicillin [From AUGMENTIN] Allergy (Unknown, Verified 03/20/23 13:25) PER H&P clavulanic acid [From AUGMENTIN] Allergy (Unknown, Verified 03/20/23 13:25) PER H&P garlic [GARLIC] Allergy (Unknown, Verified 03/20/23 13:25) PER H&P metronidazole [From FLAGYL] Allergy (Unknown, Verified 03/20/23 13:25) OCULAR MIGRAINES penicillamine Allergy (Unknown, Verified 03/20/23 13:25) Unknown ciprofloxacin Adverse Reaction (Intermediate, Verified 03/20/23 13:25) neuropathic pain lisinopril Adverse Reaction (Intermediate, Verified 03/20/23 13:25) Cough nitrofurantoin Adverse Reaction (Mild, Verified 03/20/23 13:25) GI side effects environmental Allergy (Unknown, Uncoded 02/28/23 21:54) Unknown flagyl Allergy (Unknown, Uncoded 02/28/23 21:54) Unknown From KEFLEX Allergy (Unknown, Uncoded 02/28/23 21:54) RASH Metoprolol Tartrate Allergy (Unknown, Uncoded 02/28/23 21:54) Unknown Sulfacet-R Allergy (Unknown, Uncoded 02/28/23 21:54) Unknown Do you need a note to return to daycare/school/sports/work: No HPI EP sore throat (lobby,masked, disabled) HPI Details 82-year-old female presents to the office for a sick visit. Patient is complaining of a sore throat. She has had the symptoms for about a month. Patient was in a skilled rehab facility. Occasional earache. No fevers or chills. REPLACED BY [facility] Medical History Anxiety Arthritis Diverticulitis GERD (gastroesophageal reflux disease) Heart murmur HTN (hypertension) Irritable bowel Neuropathy Surgical History History of appendectomy History of tonsillectomy Hx of colonoscopy Hx of esophagogastroduodenoscopy Family History Father No problems noted. Mother No problems noted. Social History Household Members: Children Housing: House Are you a primary insurance healthcare consultant to a significant other at home: No Do you presently have visiting nurse or other home services: No Alcohol intake: never Patient Tobacco Use Status: Former Tobacco user Quit Date: 2013 e-Cigarette/Vaping Use: Never Used Second Hand Smoke Exposure: No Advance Directives Date on File: 11/21/22 service: No Current occupational status: retired Cognitive needs: No Hearing needs: No Vision needs: Yes (glasses) Physical Exam Vital Signs: Last Vital Signs Temp 98.3 F 03/20/23 13:25 Pulse 87 03/20/23 13:25 BP 142/82 H 03/20/23 13:25 Pulse Ox 98 03/20/23 13:25 Const General: cooperative and healthy appearing Nutritional Appearance: well nourished Orientation/consciousness: patient oriented x3 Limitations: no limitations HEENT Head: Yes normal to inspection Eyes General: appearance normal, both eyes and all related structures Neck Neck: Yes normal visual inspection Chest Chest palpation & inspection: normal palpation of entire chest wall Resp Effort & Inspection: normal respiratory effort Neuro General: patient oriented x3 Results AMB Rapid Strep AMB Rapid Strep Negative Last Edit by Terry Brown CMA on 03/20/23 13 :40 Results Reviewed Results Reviewed: Laboratory Last Values Strep Scn Rapid Clinic Negative 03/20/23 13:30 Assessment & Plan Assessment & Plan (1) Sore throat: Code(s): J02.9 - Acute pharyngitis, unspecified Plan: No evidence of infection. No antibiotics needed. Saltwater gargling. Orders: Orders AMB Rapid Strep Screen Today Z13.9 - Encounter for screening, unspecified Medications: Discontinued fluticasone propionate 50 mcg/actuation administer into each nostril 1 spray intranasal DAILY 30 days 16 grams 3RF J30.9 - Allergic rhinitis, unspecified Coding Level of Care Code Est Pt Level 3 (75834) Diagnoses Sore throat J02.9
== END 2023-03-20 14:32 | disposition home or self-care (01) ==
PROVIDERS: PCP Physician Assistant; Visit Provider Internal Medicine
DX: Z13.9 Encounter for screening, unspecified (principal); J02.9 Acute pharyngitis, unspecified
CPT/HCPCS: 87880; 99213

== ENCOUNTER 2023-03-21 19:00 | Emergency (ER) | payer MEDICARE, OTHER, SELFPAY ==
--- NOTE | ~2023-03-21 | XR_ITS ---
EXAMINATION: XR LUMBOSACRAL SPINE CLINICAL INFORMATION: Back pain COMPARISON: CT abdomen pelvis 12/09/2022 TECHNIQUE: Three views of the lumbosacral spine. FINDINGS: Mild degenerative changes are present throughout the spine with predominantly endplate changes. There is mild disc space narrowing seen at L3-L4. Vertebral body heights are well-maintained. Mild grade 1 anterolisthesis of L4 upon L5 is again noted. No bony destructive lesions or fractures. XR/XR lumbar spine 2-3V IMPRESSION: Mild degenerative changes in the spine with minimal grade 1 anterolisthesis of L4 upon L5.
--- NOTE | ~2023-03-21 | XR_ITS ---
EXAMINATION: XR HIP, RIGHT CLINICAL INFORMATION: Pain, no history of falling. COMPARISON: CT left hip and x-ray left hip 03/01/2023. TECHNIQUE: Two views of the right hip. FINDINGS: Redemonstration of fractures involving the left superior and inferior pubic rami. No interval injury. SI joints are symmetric. Pubic symphysis is maintained. Moderate multifocal degenerative osteoarthritis. No unexpected radiopaque foreign bodies. XR/XR hip RT w PEL1V IMPRESSION: 1. Redemonstration of fractures involving the left superior and inferior pubic rami. 2. No interval injury.
--- NOTE | 2023-03-21 19:42 | ED_ITS ---
HPI - General Adult General Chief complaint: Extremity Injury, Lower Stated complaint: severe hip pain Time Seen by Provider: 03/21/23 23:34 Source: patient Mode of arrival: ambulatory Limitations: no limitations History of Present Illness HPI narrative: 82-year-old female who lives home alone independently, patient had a history of left pelvic fracture after a mechanical fall 3 weeks ago, patient did well with post fracture rehab and physical therapy patient was discharged home was doing fine until today started to have right hip/lower back pain, patient still able to ambulate with pain, patient would like to take pain medication concern of falling. Patient declined any recent falling. Related Data Home Medications Medication Instructions Recorded Confirmed alprazolam 0.25 mg tablet 0.25 mg PO TID PRN Anxiety 01/06/23 03/01/23 citalopram 10 mg tablet 5 mg PO BEDTIME 01/23/23 03/01/23 fluticasone propionate 50 1 spray intranasal BID PRN 03/01/23 03/01/23 mcg/actuation nasal Allergic Symptoms spray,suspension ondansetron HCl 4 mg tablet 4 mg PO Q8H PRN Nausea 03/01/23 03/01/23 simethicone 125 mg chewable tablet 125 mg PO QID PRN GAS 03/01/23 03/01/23 Previous Rx's Medication Instructions Recorded valsartan 80 mg tablet 80 mg PO BID #180 tabs 07/12/22 famotidine 20 mg tablet 20 mg PO BID PRN heartburn 30 days 09/21/22 #60 tabs cholecalciferol (vitamin D3) 50 50 mcg PO DAILY #90 tabs 01/23/23 mcg (2,000 unit) tablet albuterol sulfate 90 mcg/actuation 1 inh inhalation QID PRN shortness 01/24/23 aerosol inhaler of breath or wheezing #6.7 grams fexofenadine 180 mg tablet 180 mg PO Q24H #30 tabs 01/24/23 (Laurel Allergy) polyethylene glycol 3350 17 gram 17 g PO DAILY #30 ea 02/05/23 oral powder packet (Miralax) dicyclomine 10 mg capsule 10 mg PO Q6H PRN cramps 10 days 02/10/23 #40 caps Allergies Allergy/AdvReac Type Severity Reaction Status Date / Time buspirone Allergy Intermediate Rash Verified 03/20/23 13:25 Sulfa (Sulfonamide Allergy Intermediate RASH Verified 03/20/23 13:25 Antibiotics) amoxicillin [From AUGMENTIN] Allergy Unknown PER H&P Verified 03/20/23 13:25 clavulanic acid Allergy Unknown PER H&P Verified 03/20/23 13:25 [From AUGMENTIN] garlic [GARLIC] Allergy Unknown PER H&P Verified 03/20/23 13:25 metronidazole [From FLAGYL] Allergy Unknown OCULAR Verified 03/20/23 13:25 MIGRAINES penicillamine Allergy Unknown Unknown Verified 03/20/23 13:25 ciprofloxacin AdvReac Intermediate neuropathic Verified 03/20/23 13:25 pain lisinopril AdvReac Intermediate Cough Verified 03/20/23 13:25 nitrofurantoin AdvReac Mild GI side Verified 03/20/23 13:25 effects environmental Allergy Unknown Unknown Uncoded 02/28/23 21:54 flagyl Allergy Unknown Unknown Uncoded 02/28/23 21:54 From KEFLEX Allergy Unknown RASH Uncoded 02/28/23 21:54 Metoprolol Tartrate Allergy Unknown Unknown Uncoded 02/28/23 21:54 Sulfacet-R Allergy Unknown Unknown Uncoded 02/28/23 21:54 Review of Systems Review of Systems: All other systems are reviewed and are negative Constitutional: Reports as per HPI and Reports no additional constitutional complaints Eyes: Reports as per HPI and Reports no additional eye complaints Reports system reviewed and no additional complaints, except as documented Cardiovascular: Reports as per HPI and Reports no additional cardiovascular complaints Respiratory: Reports as per HPI and Reports no additional respiratory complaints Gastrointestinal: Reports as per HPI and Reports no additional gastrointestinal complaints Genitourinary: Reports no additional female genitourinary complaints Musculoskeletal: Reports no additional musculoskeletal complaints Skin/Breast: Reports system reviewed and no additional complaints, except as docu Psychiatric: Reports no additional psychiatric complaints Endocrine: Reports no additional endocrine complaints Hematologic/Lymphatic: Reports no additional hematologic/lymphatic complaints Allergic/Immunologic: Reports no additional allergic/immunologic complaints Reports system reviewed and no additional complaints, except as documented and Reports Abnormal speech present [facility] Past Medical History Medical History Anxiety Arthritis Diverticulitis GERD (gastroesophageal reflux disease) Heart murmur HTN (hypertension) Irritable bowel Neuropathy Surgical History History of appendectomy History of tonsillectomy Hx of colonoscopy Hx of esophagogastroduodenoscopy Family History Family History Father No problems noted. Mother No problems noted. Social History Social History Household Members: Children Housing: House Are you a primary career services director to a significant other at home: No Do you presently have visiting nurse or other home services: No Alcohol intake: never Patient Tobacco Use Status: Former Tobacco user Quit Date: 2013 e-Cigarette/Vaping Use: Never Used Second Hand Smoke Exposure: No Advance Directives: No Advance Directives Information Provided: No Advance Directives Date on File: 11/21/22 service: No Current occupational status: retired Cognitive needs: No Hearing needs: No Vision needs: Yes (glasses) Physical Exam ED Vital Signs: Vital Signs - 24 hr 03/21/23 19:43 03/21/23 23:30 Temperature 98.1 F 98.7 F Pulse Rate 95 92 Respiratory Rate 20 19 Blood Pressure 171/96 H 174/99 H Pulse Oximetry 97 95 Oxygen Delivery Method Room Air Room Air BMI result Body Mass Index 28.1 Vital signs have been reviewed as appeared to be correct. Blood pressure elevated. Heart rate normal. Respiration rate normal. Temperature normal. Oxygen saturation normal. Appearance: Alert. Oriented X3. No acute distress. Head: Normal external exam. Normocephalic. Atraumatic. No Calvert signs noted. No raccoon eyes noted Eyes: PERRLA. EOMI. Conjunctiva and sclera normal. Eyelids normal. ENT: TM's Normal. Pharynx normal. Uvula midline. Moist mucous membranes. No trismus noted. No drooling noted. No muffled voice noted. Neck: Normal inspection. Neck supple. FROM. No adenopathy. Thyroid Normal. No meningeal signs. No neck mass noted. CVS: Normal heart rate and rhythm. Heart sound normal. No murmurs noted. Pulses normal throughout. Respiratory: No respiratory distress. Painless inspiration. Breath sounds normal. No wheezes/rales/rhonchi noted. Chest nontender. No accessory muscle usage noted or decreased air movement noted. Abdomen: Soft and nontender. Bowel sounds normal in all 4 quadrants. No distention noted. No organomegaly noted. No visible injury noted. Back: No CVA tenderness. Full range of motion noted. Skin: Skin warm and dry. Normal skin color. Normal skin turgor. No rashes/lesions/lacerations noted. Extremities: Hips exam: No deformity, no rotation, no shortness of the lower extremities, neurovascularly intact, able to ambulate with limping mostly complaining of lower lumbar pain when she walks. Neuro: Oriented X 3. Cranial nerve exam: II-XII are grossly intact No motor deficit. No sensory deficit. Reflexes normal. Course Course Course Narrative: This is a rapid medical exam. Deferred additional HPI, ROS, PE to primary provider. 82 yo female here with atraumatic right hip pain. Will check x-rays, VSS Reevaluation(s) Reevaluation #1: Sustained Left pelvic fracture 3 weeks ago, no recent fall, right hip x-ray showing no fracture, lumbar spine x-ray showing no acute fracture, patient is still able to ambulate, patient declined my recommendation to stay in the emergency department and arrange for readmission to rehab and preferred to go home, patient also refusing taking pain medication but will take Tylenol. Time: 23:56 Medical Decision Making Differential Diagnosis Differential Diagnoses: The differential diagnosis associated with the presentation includes (Pelvis fracture, right hip fracture, number spine degenerative disease normal muscular pain.) Admission/Observation Consideration of admission/observation: Escalation of care including admission/observation considered Independent Interpretation I performed an independent interpretation of an: Plain X-Ray (Right hip/lumbar spine: Diffuse degenerative osteoarthritis, no acute fracture.) Radiology Impression Discussion of test interpretation with radiology: I have reviewed the radiologist's reading. Discharge Plan Discharge Clinical Impression: Osteoarthritis of right hip Patient Disposition: Home, Self-Care Instructions: Osteoarthritis (ED) Prescriptions: No Action valsartan 80 mg tablet 80 mg PO BID Qty: 180 2RF Rx Instructions: New Dose famotidine 20 mg tablet 20 mg PO BID PRN (Reason: heartburn) 30 Days Qty: 60 1RF dicyclomine 10 mg capsule 10 mg PO Q6H PRN (Reason: cramps) 10 Days Qty: 40 0RF alprazolam 0.25 mg Tablet 0.25 mg PO TID PRN (Reason: Anxiety) fexofenadine [Laurel Allergy] 180 mg tablet 180 mg PO Q24H Qty: 30 0RF ondansetron HCl 4 mg tablet 4 mg PO Q8H PRN (Reason: Nausea) fluticasone propionate 50 mcg/actuation spray,suspension 1 spray INTRANASAL BID PRN (Reason: Allergic Symptoms) Rx Instructions: administer into each nostril simethicone 125 mg Tablet,Chewable 125 mg PO QID PRN (Reason: GAS) polyethylene glycol 3350 [Miralax] 17 gram powder in packet 17 g PO DAILY Qty: 30 0RF citalopram 10 mg tablet 5 mg PO BEDTIME cholecalciferol (vitamin D3) 50 mcg (2,000 unit) tablet 50 mcg PO DAILY Qty: 90 3RF albuterol sulfate 90 mcg/actuation HFA aerosol inhaler 1 inh inhalation QID PRN (Reason: shortness of breath or wheezing) Qty: 6.7 0RF Referrals: Nick Gomez PA-C [Primary Care Provider] -
[2023-03-21 19:43] VITALS: BP 171/96; PULSE 95; RESP 20; TEMP 36.7; O2SAT 97; BMI 28.1
--- OUTSIDE RECORDS SUMMARY | 2023-03-21 22:04 | XMS_ITS ---
Author Name Anatoliy Escobar Address [address] [place] [address] Organization [facility] Address [address] [place] [address] Care Team Providers Care Cold Mill Operator Name Role Phone Anatoliy Escobar [facility] [phone] PROBLEMS Type Condition ICD9-CM Code VOZ23-KK Code Onset Dates Condition Status SNOMED Code Problem Gastroesophageal reflux disease without esophagitis K21.9 Active 47672152 5 Problem Diverticulitis of large intestine without perforation or abscess without bleeding K57.32 Active 696353202 Problem Irritable bowel syndrome with diarrhea K58.0 Active 587834828 Problem Irritable bowel syndrome without diarrhea K58.9 Active 41469336 Problem Abnormal CT scan, sigmoid colon R93.3 Active Problem Diverticulosis K57.90 Active 920093158 Problem Hiatal hernia K44.9 Active 66228324 Problem History of adenomatous polyp of colon Z86.010 Active 178313105 Problem Irritable bowel syndrome with constipation K58.1 Active 099957147 Problem Gastroesophageal reflux disease, unspecified whether esophagitis present K21.9 Active Problem Irritable bowel syndrome with both constipation and diarrhea K58.2 Active 10236013 Problem GERD (gastroesophageal reflux disease) K21.9 Active Problem Rectal bleeding K62.5 Active 84338132 Problem LLQ abdominal pain R10.32 Active 64249 6002 Problem Heme + stool R19.5 Active 659443268 ALLERGIES Substance Reaction Event Type Date Status garlic Unknown Non Drug Allergy Dec, Active Flagyl Unknown Drug Allergy Dec, Active Augmentin Unknown Drug Allergy Dec, Active Sulfa Unknown Drug Allergy Dec, Active ENCOUNTERS Encounter Location Date Diagnosis [facility] [address] [place] [address] 23 Feb, 2023 [facility] [address] [place] [address] 19 Feb, 2023 [facility] [address] [place] [address] 16 Feb, 2023 [facility] [address] [place] [address] January, [facility] [address] [place] January, [facility] [address] [place] January, [facility] [address] [place] [address] 24 Dec, 2022 [facility] [address] [place] [address] 18 Dec, 2022 [facility] [address] [place] 11 Dec, 2022 [facility] [address] [place] [address] 10 Dec, 2022 [facility] [address] [place] [address] 05 Dec, 2022 Heme + stool R19.5 ; LLQ abdominal pain R10.32 ; Gastroesophageal reflux disease, unspecified whether esophagitis present K21.9 ; History of adenomatous polyp of colon Z86.010 and Irritable bowel syndrome with constipation K58.1 [facility] [address] [place] [address] Nov, [facility] [address] [place] [address] Nov, [facility] [address] [place] [address] Oct, [facility] [address] [place] [address] Sep, [facility] [address] [place] [address] Sep, [facility] [address] [place] [address] 17 Sep, 2022 [facility] [address] [place] 27 Aug, 2022 [facility] [address] [place] 13 Aug, 2022 [facility] [address] [place] Aug, [facility] [address] [place] 28 Jul, 2022 [facility] [address] [place] Jul, [facility] [address] [place] Jun, [facility] [address] [place] [address] 29 May, 2022 [facility] [address] [place] Mar, [facility] [address] [place] Feb, [facility] [address] [place] Feb, [facility] [address] [place] Dec, Gastroesophageal reflux disease without esophagitis K21.9 and Irritable bowel syndrome with both constipation and diarrhea K58.2 [facility] [address] [place] 10 Oct, 2021 [facility] [address] [place] 07 Oct, 2021 [facility] [address] [place] Sep, [facility] [address] [place] 30 Sep, 2021 [facility] [address] [place] [address] Sep, [facility] [address] [place] 24 Sep, 2021 Rectal bleeding K62.5 [facility] [address] [place] [address] Jul, [facility] [address] [place] 22 Jun, 2021 [facility] [address] [place] [address] 19 Jun, 2021 [facility] [address] [place] 18 Jun, 2021 [facility] [address] [place] [address] 15 Jun, 2021 [facility] [address] [place] Jun, [facility] [address] [place] [address] 23 Apr, 2021 [facility] [address] [place] [address] Apr, Irritable bowel syndrome with both constipation and diarrhea K58.2 ; GERD (gastroesophageal reflux disease) K21.9 and Hiatal hernia K44.9 [facility] [address] [place] [address] Mar, [facility] [address] [place] [address] 24 Feb, 2021 [facility] [address] [place] [address] 24 Feb, 2021 [facility] [address] [place] 15 Feb, 2021 [facility] [address] [place] [address] 15 Feb, 2021 [facility] [address] [place] [address] 11 Feb, 2021 [facility] [address] [place] [address] 28 Dec, 2020 [facility] [address] [place] [address] 22 Jun, 2020 [facility] [address] [place] 14 Jun, 2020 [facility] [address] [place] Jun, [facility] [address] [place] Feb, [facility] [address] [place] Feb, [facility] [address] [place] Feb, [facility] [address] [place] January, [facility] [address] [place] [address] Oct, [facility] [address] [place] Sep, Irritable bowel syndrome with both constipation and diarrhea K58.2 ; GERD (gastroesophageal reflux disease) K21.9 and Hiatal hernia K44.9 [facility] [address] [place] [address] Sep, [facility] [address] [place] [address] Sep, [facility] [address] [place] Sep, [facility] [address] [place] Sep, [facility] [address] [place] Sep, [facility] [address] [place] Aug, [facility] [address] [place] [address] Aug, [facility] [address] [place] Aug, [facility] [address] [place] [address] Jun, [facility] [address] [place] [address] Jun, [facility] Outpatient [address] [place] [phone] Jun, GERD (gastroesophageal reflux disease) K21.9 ; Hiatal hernia K44.9 ; Abnormal abdominal CT scan R93.5 and Colon polyp K63.5 [facility] [address] [place] [address] Jun, [facility] [address] [place] [address] May, [facility] [address] [place] [address] May, [facility] [address] [place] [address] Mar, [facility] [address] [place] [address] Feb, [facility] [address] [place] [address] January, [facility] [address] [place] [address] Dec, [facility] [address] [place] [address] Dec, Irritable bowel syndrome with constipation K58.1 ; Abnormal CT scan, sigmoid colon R93.3 ; Diverticulosis K57.90 and Gastroesophageal reflux disease without esophagitis K21.9 [facility] [address] [place] [address] Dec, [facility] [address] [place] [address] Dec, [facility] [address] [place] [address] Dec, [facility] [address] [place] [address] Mar, [facility] [address] [place] [address] Oct, Irritable bowel syndrome with both constipation and diarrhea K58.2 [facility] [address] [place] [address] Oct, [facility] [address] [place] [address] May, [facility] [address] [place] [address] Apr, [facility] [address] [place] [facility] [place] [address] Mar, [facility] [address] [place] [address] [place] Mar, [facility] [address] [place] [address] [place] [address] Feb, Irritable bowel syndrome with diarrhea K58.0 [facility] [address] [place] [address] [place] [address] Feb, [facility] [address] [place] [address] [place] [address] Sep, [facility] [address] [place] [address] Aug, Irritable bowel syndrome without diarrhea K58.9 ; Gastroesophageal reflux disease without esophagitis K21.9 and Diverticulitis of large intestine without perforation or abscess without bleeding K57.32 [facility] [address] [place] [address] May, [facility] [address] [place] [address] Apr, [facility] [address] [place] [address] Feb, [facility] [address] [place] [address] Feb, Irritable bowel syndrome 564.1 ; Hypertension 401.9 ; Change in bowel habits 787.99 and Diverticulitis of colon 562.11 [facility] [address] [place] [address] Aug, [facility] Outpatient [address] [place] [phone] Sep, [facility] [address] [place] [address] Sep, [facility] [address] [place] [address] Jul, [facility] [address] [place] [address] Jul, Abdominal pain, epigastric 789.06 ; Colon cancer screening V76.51 and History of adenomatous polyp of colon V12.72 [facility] Outpatient [address], [place] [phone] Jun, 2007 [facility] ER [address], [place] [phone] Nov, [facility] ER [address], [place] [phone] 08 Dec, 2003 IMMUNIZATIONS Vaccine Route Administration [...] PROCEDURES Procedure Date Ordered Result Body Site DOC MEDS VERIFIED W/PT OR RE December 14, 2021 TOBACCO NON-USER December 26, 2018 UPPER GI ENDOSCOPY, BIOPSY Jun 07, 2019 COLORECTAL CA SCREEN DOC REV Aug 07, 2015 BMI >=30 CALCUATE W/FOLLOWUP Oct 17, 2017 PATIENT NOT ELIG D/T ACTIVE DX HTN Apr 20, 2021 PRES/ABSN URINE INCON ASSESS February 06, 2015 BMI >=30 CALCUATE W/FOLLOWUP February 06, 2015 DOC MEDS VERIFIED W/PT OR RE Apr 20, 2021 BMI >=30 CALCUATE W/FOLLOWUP Aug 07, 2015 PRES/ABSN URINE INCON ASSESS Oct 03, 2019 COLORECTAL CA SCREEN DOC REV February 06, 2015 LESION REMOVAL COLONOSCOPY Jun 07, 2019 TOBACCO NON-USER Oct 03, 2019 PRES/ABSN URINE INCON ASSESS December 26, 2018 PRES/ABSN URINE INCON ASSESS Aug 07, 2015 DOC MEDS VERIFIED W/PT OR RE December 07, 2022 BP SCR PRFRM RCMDD DEFIND SCR INTVL Oct 03, 2019 PRES/ABSN URINE INCON ASSESS Oct 17, 2017 BP SCR PRFRM RCMDD DEFIND SCR INTVL December 26, 2018 DOC MEDS VERIFIED W/PT OR RE Oct 17, 2017 DOC MEDS VERIFIED W/PT OR RE Oct 03, 2019 BP SCR PRFRM RCMDD DEFIND SCR INTVL Oct 17, 2017 DOC MEDS VERIFIED W/PT OR RE December 26, 2018 DOC MEDS VERIFIED W/PT OR RE February 06, 2015 FLU IMMUNIZE ORDER/ADMIN Oct 17, 2017 DOC MEDS VERIFIED W/PT OR RE Aug 07, 2015 TOBACCO NON-USER Oct 17, 2017 FLU IMMUNIZE ORDER/ADMIN February 06, 2015 BP SCR PRFRM RCMDD DEFIND SCR INTVL Aug 07, 2015 TOBACCO NON-USER December 14, 2021 PREHTN/HTN BP DOC INDCD F/U DOC February 06, 2015 TOBACCO NON-USER December 07, 2022 TOBACCO NON-USER February 06, 2015 FLU IMMUNIZE ORDER/ADMIN Aug 07, 2015 TOBACCO NON-USER Aug 07, 2015 BP SCR NOT PRFRM REC REASON NOS December 14, 2021 BP SCR NOT PRFRM REC REASON NOS December 07, 2022 TOBACCO NON-USER Apr 20, 2021 RESULTS Name Result Date Reference Range GI [...] AFTER WIPING, feels much better, severe pain, Bella pain in rectum , TERRIBLE PAIN, SPASMS, [...] terrible gas, refill request/omeprazole, RE: Vomiting/ 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
--- OUTSIDE RECORDS SUMMARY | 2023-03-21 22:04 | XMS_ITS | Patient Health Record ---
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, with unspecified presence of clinical manifestation (I70.203) Active confirmed Atherosclerosis of big sandy arteries of the extremities (191184464427675) Problem Arthritis of joint of lesser toe, left (M19.072) Active confirmed Localized, primary osteoarthritis of the ankle and/or foot (693317458) VITAL SIGNS Height 5 ft 8 in in 02/10/2023 Weight 173 lbs 02/10/2023 BMI 26.3 kg/m2 02/10/2023 Encounters Encounter Location Date Provider Diagnosis [address] [address] 04/05/2022 [facility] [address] 04/05/2022 Kw[facility]wo Hendricks [facility] [address] 06/23/2022 Kwadwo Hendricks [facility] [address] 06/24/2022 Julieth Rosa [facility] [address] 08/19/2022 Kwadwo Hendricks [address] [address] 08/19/2022 Kwadwo Schultzier [facility] [address] 09/20/2022 Kwadwoedmundo Hendricks [facility] [address] 09/20/2022 Kwadwo Hendricks [address] [address] 09/20/2022 Kwadwoedmundo Hendricks 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, with unspecified presence of clinical manifestation I70.203 ; Ingrowing nail L60.0 ; Tinea unguium B35.1 ; Pain in right toe(s) M79.674 and Pain in left toe(s) M79.[address] [address] 11/22/2022 [facility] Ruthie [address] [address] 11/25/2022 Kwadwo Hendricks 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 ; Pain in left toe(s) M79.675 ; Other hammer toe(s) (acquired), left foot M20.42 and Arthritis of joint of lesser toe, left M19.[address] [address] 11/29/2022 Julieth Rosa [address] [address] 12/23/2022 Kwadwo Ruthie [address] [address] 01/06/2023 Kwadwoedmundo Hendricks 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, with unspecified presence of clinical manifestation I70.203 ; Tinea unguium B35.1 ; Pain in right toe(s) M79.674 and Pain in left toe(s) M79.[address] [address] 01/06/2023 Kwadwo Ruthie [address] [address] 01/24/2023 Kwadwo Hendricks [facility] [address] [address] 01/25/2023 Josh Blanc [facility] [address] [address] 02/10/2023 Kwadwo Hendricks Skin ulcer of toe of left foot, limited to breakdown of skin L97.521 ; Pain in left toe(s) M79.675 ; Other hammer toe(s) (acquired), left foot M20.42 ; Arthritis of joint of lesser toe, left M19.072 and Other subluxation of left foot, initial encounter S93.332A [facility] [address] 02/10/2023 Kwadwo Hendricks ASSESSMENTS Encounter Date Diagnosis Assessment Notes Treatment Notes Treatment Clinical Notes 09/20/2022 Ingrowing nail (ICD- 10 - L60.0) 09/20/2022 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, with unspecified presence of clinical manifestation (ICD-10 - I70.203) 11/25/2022 Non-pressure chronic ulcer of other part of left foot limited to breakdown of skin (ICD-10 - L97.521) 11/25/2022 Pain in left toe(s) (ICD-10 - M79.675) 01/06/2023 Tinea unguium (ICD-1 0 - B35.1) 01/06/2023 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, with unspecified presence of clinical manifestation (ICD-10 - I70.203) 02/10/2023 Pain in left toe(s) (ICD-10 - M79.675) 02/10/2023 Skin ulcer of toe of left foot, limited to breakdown of skin (ICD-10 - L97.521) Patient Educated with: WOUND CARE INSTRUCTIONS.pdf (WOUND CARE INSTRUCTIONS.pdf ) 02/10/2023 Other hammer toe(s) (acquired), left foot (ICD-10 - M20.42) 01/06/2023 Pain in right toe(s) (ICD-10 - M79.674) 11/25/2022 Other hammer toe(s) (acquired), left foot (ICD-10 - M20.42) 09/20/2022 Tinea unguium (ICD-1 0 - B35.1) 09/20/2022 Pain in right toe(s) (ICD-10 - M79.674) 01/06/2023 Pain in left toe(s) (ICD-10 - M79.675) 11/25/2022 Arthritis of joint o f lesser toe, left (ICD-10 - M19.072) 02/10/2023 Arthritis of joint o f lesser toe, left (ICD-10 - M19.072) 02/10/2023 Other subluxation of left foot, initial encounter (ICD-10 - S93.332A) 09/20/2022 Pain in left toe(s) (ICD-10 - M79.675) 02/10/2023 Other PLAN OF TREATMENT Pending Test Test Name Order Date *Uric Acid, Serum 11/27/2020 42700-MSSKIQQ NAIL, 6 OR MORE 09/20/2022 37986-XNFCJVS NAIL, 6 OR MORE 01/06/2023 06690-YUMEIIM NAIL, 6 OR MORE 10/10/2014 59007-NIKJFPK NAIL, 6 OR MORE 07/19/2016 30391-FEUBTDZ NAIL, 6 OR MORE 01/10/2017 30321-MNWNMMX NAIL, 6 OR MORE 08/25/2017 79784-OKUVUOW NAIL, 6 OR MORE 08/07/2018 67758-MUGXXAR NAIL, 6 OR MORE 04/16/2019 07730-UMETUVN NAIL, 6 OR MORE 03/20/2020 62507-RWBFMRK NAIL, 6 OR MORE 09/08/2020 77924-WGMDBEH NAIL, 6 OR MORE 11/23/2021 45645-CELEAQS NAIL, 6 OR MORE 03/23/2021 64565-ZREJLVW NAIL, 6 OR MORE 07/10/2012 43896-HRVFVOH NAIL, 6 OR MORE 04/06/2012 68554-ZBXZIDM NAIL, 6 OR MORE 12/02/2011 96123-BYDDGEK NAIL, 6 OR MORE 06/12/2020 28398-SKDUDVM NAIL, 6 OR MORE 11/24/2017 32026-QOEARDB NAIL, 6 OR MORE 03/24/2015 79024-IJIPKIF NAIL, 6 OR MORE 02/02/2018 74928-Hzosqifo Plate 06/12/2020 05586-Bpvmzvrt Plate 03/23/2021 40054-Ocbtatjh Plate 11/23/2021 44561-Feweigmt Plate 09/08/2020 57275-Xbpbxcsv Plate 03/20/2020 47315-Yfoocyed Plate 04/16/2019 07758-Mimkbjex Plate 09/20/2022 70818-Jmojwnud Plate Each Additional 36027-Ucyzpyla Plate Each Additional 47906- Debride <25 sq cm 03/24/2015 26563- Debride <25 sq cm 12/31/2021 58127- Debride <25 sq cm 11/25/2022 81620- Debride <25 sq cm 02/10/2023 55318-HNMP SKIN LESIONS, OVER 4 01/07/20 23 31507-AELL SKIN LESIONS, OVER 4 09/20/19 23 17557-ZYNA SKIN LESIONS, 2 TO 4 11/24/19 22 05358, T9354-JAOWE/INJECT, JOINT/BURSA 0 09/08/2020 14079 - Tenotomy, open flexor 12/01/2017 Next Appt Details Provider Name:Kwadwo Hendricks , 04/11/2023 11:30:00 AM, [address] [facility], [place], [address], Insurance Providers Payer Name Payer Address Payer Phone Subscriber Number Group Number Insured Name Patient Relationship to Insured Coverage Start Date Coverage End Date Medicare [employer] [address] [facility] [place] [address] [id number] Bella Henley Self - patient is the insured [facility] [address] [place] [id number] [place] Self - patient is the insured MEDICAL (GENERAL) HISTORY Medical History History ICD Code back, hip, knee pain transfusions reflux measles chicken pox Anxiety disorder Peripheral neuropathy Surgical History Surgery Date(Month/Year) tonsillectomy appendectomy intestinal blockage 11/2013 Hospitalization History Reason Date(Month/Year) [facility] [place] - Gerd /IBS due to anxiety 01/2021,02/2021 Patient admitted to [facility] x 5 days; diverticulitis 12/2014
[2023-03-21 23:30] VITALS: BP 174/99; PULSE 92; RESP 19; TEMP 37.1; O2SAT 95
--- NOTE | 2023-03-21 23:47 | ED_ITS ---
HPI - Extremity Injury (Lower) General Chief Complaint: Extremity Injury, Lower Stated Complaint: severe hip pain Time Seen by Provider: 03/21/23 23:34 Source: patient Mode of arrival: ambulatory Limitations: no limitations Related Data Home Medications Medication Instructions Recorded Confirmed alprazolam 0.25 mg tablet 0.25 mg PO TID PRN Anxiety 01/06/23 03/01/23 citalopram 10 mg tablet 5 mg PO BEDTIME 01/23/23 03/01/23 fluticasone propionate 50 1 spray intranasal BID PRN 03/01/23 03/01/23 mcg/actuation nasal Allergic Symptoms spray,suspension ondansetron HCl 4 mg tablet 4 mg PO Q8H PRN Nausea 03/01/23 03/01/23 simethicone 125 mg chewable tablet 125 mg PO QID PRN GAS 03/01/23 03/01/23 Previous Rx's Medication Instructions Recorded valsartan 80 mg tablet 80 mg PO BID #180 tabs 07/12/22 famotidine 20 mg tablet 20 mg PO BID PRN heartburn 30 days 09/21/22 #60 tabs cholecalciferol (vitamin D3) 50 50 mcg PO DAILY #90 tabs 01/23/23 mcg (2,000 unit) tablet albuterol sulfate 90 mcg/actuation 1 inh inhalation QID PRN shortness 01/24/23 aerosol inhaler of breath or wheezing #6.7 grams fexofenadine 180 mg tablet 180 mg PO Q24H #30 tabs 01/24/23 (Laurel Allergy) polyethylene glycol 3350 17 gram 17 g PO DAILY #30 ea 02/05/23 oral powder packet (Miralax) dicyclomine 10 mg capsule 10 mg PO Q6H PRN cramps 10 days 02/10/23 #40 caps Allergies Allergy/AdvReac Type Severity Reaction Status Date / Time buspirone Allergy Intermediate Rash Verified 03/20/23 13:25 Sulfa (Sulfonamide Allergy Intermediate RASH Verified 03/20/23 13:25 Antibiotics) amoxicillin [From AUGMENTIN] Allergy Unknown PER H&P Verified 03/20/23 13:25 clavulanic acid Allergy Unknown PER H&P Verified 03/20/23 13:25 [From AUGMENTIN] garlic [GARLIC] Allergy Unknown PER H&P Verified 07/17/23 13:25 metronidazole [From FLAGYL] Allergy Unknown OCULAR Verified 03/20/23 13:25 MIGRAINES penicillamine Allergy Unknown Unknown Verified 03/20/23 13:25 ciprofloxacin AdvReac Intermediate neuropathic Verified 03/20/23 13:25 pain lisinopril AdvReac Intermediate Cough Verified 03/20/23 13:25 nitrofurantoin AdvReac Mild GI side Verified 03/20/23 13:25 effects environmental Allergy Unknown Unknown Uncoded 02/28/23 21:54 flagyl Allergy Unknown Unknown Uncoded 02/28/23 21:54 From KEFLEX Allergy Unknown RASH Uncoded 02/28/23 21:54 Metoprolol Tartrate Allergy Unknown Unknown Uncoded 02/28/23 21:54 Sulfacet-R Allergy Unknown Unknown Uncoded 02/28/23 21:54 PMF Past Medical History Medical History Anxiety Arthritis Diverticulitis GERD (gastroesophageal reflux disease) Heart murmur HTN (hypertension) Irritable bowel Neuropathy Surgical History History of appendectomy History of tonsillectomy Hx of colonoscopy Hx of esophagogastroduodenoscopy Family History Family History Father No problems noted. Mother No problems noted. Social History Social History Household Members: Children Housing: House Are you a primary foster care social worker to a significant other at home: No Do you presently have visiting nurse or other home services: No Alcohol intake: never Patient Tobacco Use Status: Former Tobacco user Quit Date: 2013 e-Cigarette/Vaping Use: Never Used Second Hand Smoke Exposure: No Advance Directives: No Advance Directives Information Provided: No Advance Directives Date on File: 11/21/22 service: No Current occupational status: retired Cognitive needs: No Hearing needs: No Vision needs: Yes (glasses) Physical Exam Vital Signs: Vital Signs: Last Vital Signs Temp 98.7 F 03/21/23 23:30 Pulse 92 03/21/23 23:30 Resp 19 03/21/23 23:30 BP 174/99 H 03/21/23 23:30 Pulse Ox 95 03/21/23 23:30 O2 Del Method Room Air 03/21/23 23:30 BMI result Body Mass Index 28.1 Discharge Plan Discharge Prescriptions: No Action valsartan 80 mg tablet 80 mg PO BID Qty: 180 2RF Rx Instructions: New Dose famotidine 20 mg tablet 20 mg PO BID PRN (Reason: heartburn) 30 Days Qty: 60 1RF dicyclomine 10 mg capsule 10 mg PO Q6H PRN (Reason: cramps) 10 Days Qty: 40 0RF alprazolam 0.25 mg Tablet 0.25 mg PO TID PRN (Reason: Anxiety) fexofenadine [[facility] Allergy] 180 mg tablet 180 mg PO Q24H Qty: 30 0RF ondansetron HCl 4 mg tablet 4 mg PO Q8H PRN (Reason: Nausea) fluticasone propionate 50 mcg/actuation spray,suspension 1 spray INTRANASAL BID PRN (Reason: Allergic Symptoms) Rx Instructions: administer into each nostril simethicone 125 mg Tablet,Chewable 125 mg PO QID PRN (Reason: GAS) polyethylene glycol 3350 [Miralax] 17 gram powder in packet 17 g PO DAILY Qty: 30 0RF citalopram 10 mg tablet 5 mg PO BEDTIME cholecalciferol (vitamin D3) 50 mcg (2,000 unit) tablet 50 mcg PO DAILY Qty: 90 3RF albuterol sulfate 90 mcg/actuation HFA aerosol inhaler 1 inh inhalation QID PRN (Reason: shortness of breath or wheezing) Qty: 6.7 0RF
[2023-03-22] MEDS: Acetaminophen 325 MG TABLET 650 MG PO (00:13)
--- NOTE | 2023-03-22 01:13 | PC.NURSE ---
pt utilized wheelchair at discharge. pt calm and cooperative. pt provided with discharge packet. pt verbalized understanding of discharge plan
== END 2023-03-22 01:16 | disposition home or self-care (01) ==
PROVIDERS: Emergency Provider Emergency Medicine; PCP Physician Assistant
DX: M16.11 Unilateral primary osteoarthritis, right hip (principal); R10.2 Pelvic and perineal pain; M54.50 Low back pain, unspecified
CPT/HCPCS: 72100; 73502; 99283; 99284

== ENCOUNTER 2023-03-23 10:36 | Outpatient (AMB) | payer MEDICARE, OTHER, SELFPAY ==
--- NOTE | 2023-03-23 10:40 | MHC.OFFVIS ---
Intake Intake Visit Reasons: FC-inferior pubic rami fracture on the left side Intake Note: Bella an 82 year old female presents today with son for an ER follow up of inferior pubic rami fracture s/p fall, [facility] ED on 02/28/23. Patient reports having a fall on her left side, presented to [facility] ED where a CT was completed. Patient reports her pain is mostly on her right side that started on Monday. She states recently diagnose with OA in right hip. Denies any numbness and tingling. Allergies buspirone Allergy (Intermediate, Verified 03/23/23 10:46) Rash Sulfa (Sulfonamide Antibiotics) Allergy (Intermediate, Verified 03/23/23 10:46) RASH amoxicillin [From AUGMENTIN] Allergy (Unknown, Verified 03/23/23 10:46) PER H&P clavulanic acid [From AUGMENTIN] Allergy (Unknown, Verified 03/23/23 10:46) PER H&P garlic [GARLIC] Allergy (Unknown, Verified 03/23/23 10:46) PER H&P metronidazole [From FLAGYL] Allergy (Unknown, Verified 03/23/23 10:46) OCULAR MIGRAINES penicillamine Allergy (Unknown, Verified 03/23/23 10:46) Unknown ciprofloxacin Adverse Reaction (Intermediate, Verified 03/23/23 10:46) neuropathic pain lisinopril Adverse Reaction (Intermediate, Verified 03/23/23 10:46) Cough nitrofurantoin Adverse Reaction (Mild, Verified 03/23/23 10:46) GI side effects environmental Allergy (Unknown, Uncoded 03/23/23 10:46) Unknown flagyl Allergy (Unknown, Uncoded 03/23/23 10:46) Unknown From KEFLEX Allergy (Unknown, Uncoded 03/23/23 10:46) RASH Metoprolol Tartrate Allergy (Unknown, Uncoded 03/23/23 10:46) Unknown Sulfacet-R Allergy (Unknown, Uncoded 03/23/23 10:46) Unknown HPI FC-inferior pubic rami fracture on the left side HPI Details 82-year-old female who presents to the office today for an ER follow-up of inferior pubic rami fracture s/p fall on her left side. She was seen at ED on 03/01/[address] scan was performed. She states she has pain in her right hip since Monday which is aggravated with ambulating and stair use. She had attended rehab for 2 weeks which provided her great relief. She is currently working with physical therapy which has recently started. She takes Tylenol for her pain with relief. She denies any numbness or tingling. She is recently diagnosed with right hip OA. [facility] Medical History Anxiety Arthritis Diverticulitis GERD (gastroesophageal reflux disease) Heart murmur HTN (hypertension) Irritable bowel Neuropathy Surgical History History of appendectomy History of tonsillectomy Hx of colonoscopy Hx of esophagogastroduodenoscopy Family History Father No problems noted. Mother No problems noted. Social History Household Members: Children Housing: House Are you a primary caretaker resort to a significant other at home: No Do you presently have visiting nurse or other home services: No Alcohol intake: never Patient Tobacco Use Status: Former Tobacco user Quit Date: 2013 e-Cigarette/Vaping Use: Never Used Second Hand Smoke Exposure: No Advance Directives Date on File: 11/21/22 service: No Current occupational status: retired Cognitive needs: No Hearing needs: No Vision needs: Yes (glasses) Review of Systems Const All systems reviewed & are unremarkable except as noted in HPI and below Physical Exam Extrem Other: Right hip: Normal to inspection. No pain with ROM of hip or with hip flexion. NVI. Office Procedures Fracture Care Fracture Billing Code: Fracture Billing Code Results Reviewed Results Reviewed: xrays of the pelvix from 03/21 show stable pubic rami fracture Assessment & Plan Assessment & Plan (1) Pubic ramus fracture: Code(s): S32.599A - Other specified fracture of unspecified pubis, initial encounter for closed fracture Plan She will continue working with physical therapy for gait training and strengthening. I encouraged her to continue ambulating with a walker weight bearing as tolerated until cleared by physical therapy. I would like to see her back in 4-6 weeks with x-rays, sooner if needed. Medications: New celecoxib (Celebrex) 200 mg PO BID 60 caps 3RF 30 days Discontinued fluticasone propionate 50 mcg/actuation administer into each nostril 1 spray intranasal DAILY 30 days 16 grams 3RF J30.9 - Allergic rhinitis, unspecified Patient Instructions: Scribed for Debi Swenson PA-C, by Easton Shultz medical imaging director, on 03/23/2023 at 10:30 AM EST. I, Debi Swenson PA-C, have personally reviewed and agree with the information entered by the scribe. Coding Level of Care Code New Pt Level 3 (69062) Diagnoses Pubic ramus fracture S32.599A CPT Codes Fracture Care - Fracture Billing Code: Fracture Billing Code ([id number])
== END 2023-03-23 11:15 | disposition home or self-care (01) ==
PROVIDERS: PCP Physician Assistant; Visit Provider Physician Assistant
DX: S32.599D Other specified fracture of unspecified pubis, subsequent encounter for fracture with routine healing (principal)
CPT/HCPCS: 99213

== ENCOUNTER → 2023-03-23 10:36 | Outpatient (BNVA) | payer MEDICARE, OTHER, SELFPAY | PROVIDERS: PCP Physician Assistant; Visit Provider Physician Assistant ==

== ENCOUNTER 2023-03-27 17:40 | Emergency (ER) | payer MEDICARE, OTHER, SELFPAY ==
--- NOTE | ~2023-03-27 | XR_ITS ---
EXAMINATION: XR HIP, RIGHT CLINICAL INFORMATION: Right hip pain COMPARISON: Right hip 03/21/2023, left hip CT 03/01/2023 TECHNIQUE: Two views of the right hip. FINDINGS: No right hip fracture is seen. Some minimal degenerative changes are seen. Degenerative changes are seen at the pubic symphysis. There is partial visualization of healing fractures involving the pubic rami on the left. XR/XR hip RT min 2V IMPRESSION: 1. No right hip fracture is seen. 2. Healing left pubic rami fractures.
[2023-03-27 18:02] VITALS: BP 153/81; PULSE 84; RESP 18; TEMP 37; O2SAT 96; BMI 27.3
--- NOTE | 2023-03-27 18:12 | ED.GENADULT ---
HPI - General Adult General Chief complaint: Back Pain/Injury Stated complaint: right hip and abd pain Time Seen by Provider: 03/27/23 19:40 Source: patient, RN notes reviewed and old records reviewed Mode of arrival: ambulatory History of Present Illness HPI narrative: 82-year-old female with a past medical history of anxiety, arthritis, GERD, HTN, neuropathy, left pelvic fracture, presenting to the ED complaining of acute on chronic right hip/buttock pain x few weeks. Patient believes pain is secondary to over compensating from recent left pelvic fracture. Denies recent injury/trauma or fall. Has been taking Tylenol with little relief. Denies abdominal pain, nausea/vomiting, dysuria/hematuria, numbness/tingling, incontinence/retention Onset (ago): week(s) Related Data Home Medications Medication Instructions Recorded Confirmed acetaminophen 500 mg tablet 1,000 mg PO Q6H PRN Pain 03/28/23 03/28/23 alprazolam 0.25 mg tablet 0.25 mg PO BID PRN Anxiety 03/28/23 03/28/23 celecoxib 200 mg capsule 200 mg PO BID 03/28/23 03/28/23 cholecalciferol (vitamin D3) 50 50 mcg PO DAILY 03/28/23 03/28/23 mcg (2,000 unit) tablet citalopram 10 mg tablet 10 mg PO BEDTIME 03/28/23 03/28/23 cyanocobalamin (vitamin B-12) 1,000 mcg PO DAILY 03/28/23 03/28/23 1,000 mcg tablet (Vitamin B-12) docusate sodium 100 mg capsule 100 mg PO BID 03/28/23 03/28/23 fexofenadine 180 mg tablet 180 mg PO DAILY PRN Allergic 03/28/23 03/28/23 Symptoms fluticasone propionate 50 2 spray intranasal DAILY 03/28/23 03/28/23 mcg/actuation nasal spray,suspension losartan 25 mg tablet 25 mg PO DAILY 03/28/23 03/28/23 melatonin 3 mg tablet 3 mg PO BEDTIME 03/28/23 03/28/23 ondansetron HCl 4 mg tablet 4 mg PO Q8H PRN Nausea 03/28/23 03/28/23 pantoprazole 40 mg tablet,delayed 40 mg PO DAILY@0630 07/25/23 07/25/23 release polyethylene glycol 3350 17 gram 17 g PO DAILY PRN Constipation 03/28/23 03/28/23 oral powder packet Allergies Allergy/AdvReac Type Severity Reaction Status Date / Time buspirone Allergy Intermediate Rash Verified 03/23/23 10:46 Sulfa (Sulfonamide Allergy Intermediate RASH Verified 03/23/23 10:46 Antibiotics) amoxicillin [From AUGMENTIN] Allergy Unknown PER H&P Verified 03/27/23 18:02 clavulanic acid Allergy Unknown PER H&P Verified 03/23/23 10:46 [From AUGMENTIN] garlic [GARLIC] Allergy Unknown PER H&P Verified 03/23/23 10:46 metronidazole [From FLAGYL] Allergy Unknown OCULAR Verified 03/23/23 10:46 MIGRAINES penicillamine Allergy Unknown Unknown Verified 03/23/23 10:46 ciprofloxacin AdvReac Intermediate neuropathic Verified 03/23/23 10:46 pain lisinopril AdvReac Intermediate Cough Verified 03/23/23 10:46 nitrofurantoin AdvReac Mild GI side Verified 03/23/23 10:46 effects environmental Allergy Unknown Unknown Uncoded 03/23/23 10:46 flagyl Allergy Unknown Unknown Uncoded 03/23/23 10:46 From KEFLEX Allergy Unknown RASH Uncoded 03/23/23 10:46 Metoprolol Tartrate Allergy Unknown Unknown Uncoded 03/23/23 10:46 Sulfacet-R Allergy Unknown Unknown Uncoded 03/23/23 10:46 Review of Systems Review of Systems: Constitutional: No Fever, No Chills ENT/Mouth: No Ear Pain, No Nasal Congestion, No sore throat, No Rhinorrhea, No Swallowing Difficulty Cardiovascular: No Chest Pain, No SOB Respiratory: No Cough, No Sputum, No Wheezing Gastrointestinal: No Nausea, No Vomiting, No Abdominal pain Genitourinary: No Dysuria, No Urinary Frequency, No Hematuria, No Urinary Incontinence/retention, No Urgency, No Flank Pain Musculoskeletal: +joint pain, No Myalgias, No Joint Swelling Skin: No Skin Lesions, No rash Neuro: No Weakness, No Numbness, No Paresthesias Yes all other systems are reviewed and are negative Constitutional: Constitutional: Reports as per HPI Neurologic: Denies Sensory deficit (Neuro) [facility] Past Medical History Attestation statement: The following information was validated with the patient. Source: old records reviewed Medical History Anxiety Arthritis Diverticulitis GERD (gastroesophageal reflux disease) Heart murmur HTN (hypertension) Irritable bowel Neuropathy Surgical History History of appendectomy History of tonsillectomy Hx of colonoscopy Hx of esophagogastroduodenoscopy Family History Family History Father No problems noted. Mother No problems noted. Social History Social History Household Members: Children Housing: House Are you a primary children's zoo caretaker to a significant other at home: No Do you presently have visiting nurse or other home services: No Alcohol intake: never Patient Tobacco Use Status: Former Tobacco user Quit Date: 2013 Smoked in Last 30 Days: No e-Cigarette/Vaping Use: Never Used Second Hand Smoke Exposure: No Use of substances other than those prescribed or required for medical reasons: No Advance Directives: No Advance Directives Information Provided: No Advance Directives Date on File: 11/21/22 service: No Current occupational status: retired Cognitive needs: No Hearing needs: No Vision needs: Yes (glasses) Physical Exam ED Vital Signs: Vital Signs - 24 hr 03/27/23 18:02 03/27/23 19:44 03/27/23 23:47 Temperature 98.6 F 98.4 F 98.0 F Pulse Rate 84 88 84 Respiratory Rate 18 16 14 Blood Pressure 153/81 H 149/78 H 143/83 H Pulse Oximetry 96 96 97 Oxygen Delivery Method Room Air Room Air Room Air 03/28/23 08:00 Temperature 97.4 F Pulse Rate 97 Respiratory Rate 18 Blood Pressure 140/80 H Pulse Oximetry 96 Oxygen Delivery Method BMI result Body Mass Index 27.3 Const General: cooperative, healthy appearing and no acute distress Orientation/consciousness: patient oriented x3 Limitations: no limitations HENMT Head: Yes normal to inspection and Yes atraumatic Ears: hearing grossly normal bilaterally General nose exam: Normal external nose present Face and sinus: Yes normal facial exam Eyes General: appearance normal, both eyes and all related structures EOM: EOMs intact bilaterally Neck Neck: Yes normal visual inspection and Yes no meningeal signs Resp Effort & Inspection: normal respiratory effort and no respiratory distress Cardio Rate: regular rate GI Inspection: Yes normal to inspection Palpation (GI): Soft to palpation, nontender, no guarding and not rigid General: Yes no CVA tenderness Back/Spine/Pelvis Other: No midline cervical/thoracic/lumbar spinous tenderness/step-off or deformity. + mild right buttock tenderness to palpation. No erythema/ecchymosis or deformity Back: no CVA tenderness Skin Rashes: no rashes Wounds: no wounds Neuro Other: Strength intact throughout. No saddle anesthesia. Sensation intact to light touch. Neurovascular intact distally General: patient oriented x3, tone normal, moves all extremities, no meningeal signs and no focal motor deficits Gait exam (Neuro): Normal gait present Motor exam (neuro): 5/5 motor strength present throughout Sensory Exam: No Sensory deficit (Neuro) Extrem Other: Right hip without noted deformity. Nontender to palpation. Mild tenderness with external rotation. Neurovascularly intact distally. No pitting edema General: Yes normal to inspection Course Course Course Narrative: RME- 82-year-old female presents for evaluation of right hip pain. She was here 6 days ago for similar complaint. She had x-rays of the lumbar spine and right hip that showed osteoarthritis without acute fracture. The patient did have left pelvic fractures [address] scan. Denies any recent falls and has no pain to the left side of her hip or pelvis. Patient reports that she does not like taking medications. She was offered Tylenol with codeine oxycodone the past and she is afraid of them. She was prescribed Celebrex the past and does not take them. She states acetaminophen help but ?it causes heartburn. ? Had a lengthy discussion with the patient regarding treatment of osteoarthritis. The patient seems hesitant to start any new medications. I doubt that she has any new fractures. She is likely having reactive right hip pain due to a recent left pelvic fracture and compensation. This was also discussed with the patient. She is adamant that she would like further testing done, so I repeated an x-ray only XR hip RT min 2V IMPRESSION: 1.? No right hip fracture is seen. 2.? Healing left pubic rami fractures. > 2156--on re-evaluation results discussed, patient did see orthopedics on 03/23, Celebrex was recommended however patient never initiated this due to fear of worsening her GERD. Patient does not feel safe for discharge home, agreeable for PT/case management evaluation. Is agreeable to starting Celebrex in the ED. Physician observation initiated -0200--ED care transferred to Dr. Combs pending PD/case management Reevaluation(s) Reevaluation #1: Physician observation continued. No overnight events per nursing. VSS. Awaiting PT eval/CM. Time: 08:07 Reevaluation #2: Patient to be discharged home with VNA services, son will package pick up around 3pm per case management. Time: 12:37 Medications Administered Generic Name Dose Route Start Last Admin Trade Name Freq PRN Reason Stop Dose Admin Celecoxib 200 mg 03/27/23 21:59 03/28/23 09:27 Celecoxib 200 Mg Capsule PO 200 mg BID URSULA Administration Discontinued Medications Generic Name Dose Route Start Last Admin Trade Name Freq PRN Reason Stop Dose Admin Acetaminophen 650 mg 03/28/23 11:25 03/28/23 11:42 Acetaminophen 325 Mg Tablet PO 03/28/23 11:26 650 mg ONCE ONE Administration Lidocaine 1 patch 03/27/23 19:50 03/27/23 20:03 Lidocaine 4 % Patch Adh..Patch TRANSDERMA 03/27/23 19:51 1 patch ONCE ONE Administration Protocol Polyethylene Glycol 17 gm 03/28/23 11:25 03/28/23 11:42 Polyethylene Glycol 3350 17 Gm Powd.Pack PO 03/28/23 11:26 17 gm ONCE ONE Administration Medical Decision Making Medical Decision Making MDM Narrative: 82-year-old female with a past medical history of anxiety, arthritis, GERD, HTN, neuropathy, left pelvic fracture, presenting to the ED complaining of acute on chronic right hip/buttock pain x few weeks. On exam vital signs stable, NAD, nontoxic appearing with physical exam as noted above. No midline spinous tenderness through or red flag symptoms/saddle anesthesia. No hip deformity. Concern for continued osteoarthritis vs sciatica. Rule out fracture although of low suspicion. Low concern for septic joint/arthritis, cauda equina/cord compression or intra-abdominal pathology/UTI Plan: Repeat x-rays ordered in triage, topical Lidoderm patch Please refer to course for remaining clinical decision making, interpretation of labs/imaging results, and discussions with consultants and/or family members. Differential Diagnosis Differential Diagnoses: The differential diagnosis associated with the presentation includes As above Admission/Observation Consideration of admission/observation: Escalation of care including admission/observation considered Lab Data MDM Lab Attestation statement: I reviewed the patient's lab results. Radiology Impression Discussion of test interpretation with radiology: I have reviewed the radiologist's reading. External Record Review External record reviewed: Inpatient record, Office record, Outpatient record, Prior outpatient labs, Prior outpatient radiology, Primary care record and Outside ED record Tests considered The following testing was considered but not selected: As above Prescription Management I considered prescription management with: Pain Medication Discharge Plan Discharge Clinical Impression: Hip osteoarthritis Patient Disposition: Home, Self-Care Prescriptions: No Action celecoxib 200 mg capsule 200 mg PO BID polyethylene glycol 3350 17 gram powder in packet 17 g PO DAILY PRN (Reason: Constipation) citalopram 10 mg tablet 10 mg PO BEDTIME ondansetron HCl 4 mg tablet 4 mg PO Q8H PRN (Reason: Nausea) cyanocobalamin (vitamin B-12) [Vitamin B-12] 1,000 mcg tablet 1,000 mcg PO DAILY melatonin 3 mg tablet 3 mg PO BEDTIME alprazolam 0.25 mg tablet 0.25 mg PO BID PRN (Reason: Anxiety) pantoprazole 40 mg tablet,delayed release (DR/EC) 40 mg PO DAILY@0630 losartan 25 mg tablet 25 mg PO DAILY docusate sodium 100 mg capsule 100 mg PO BID fluticasone propionate 50 mcg/actuation spray,suspension 2 spray intranasal DAILY cholecalciferol (vitamin D3) 50 mcg (2,000 unit) tablet 50 mcg PO DAILY fexofenadine [Laurel] 180 mg Tablet 180 mg PO DAILY PRN (Reason: Allergic Symptoms) acetaminophen 500 mg Tablet 1,000 mg PO Q6H PRN (Reason: Pain)
[2023-03-27 19:44] VITALS: BP 149/78; PULSE 88; RESP 16; TEMP 36.9; O2SAT 96
--- OUTSIDE RECORDS SUMMARY | 2023-03-27 19:58 | XMS_ITS ---
Author Name Anatoliy Escobar Address [address] [place] [address] Organization [facility] Address [address] [place] [address] Care Team Providers Care Director Of Physician Practices Name Role Phone Anatoliy Escobar [facility] [phone] PROBLEMS Type Condition ICD9-CM Code GGS94-OD Code Onset Dates Condition Status SNOMED Code Problem Gastroesophageal reflux disease without esophagitis K21.9 Active 66246623 5 Problem Diverticulitis of large intestine without perforation or abscess without bleeding K57.32 Active 345364745 Problem Irritable bowel syndrome with diarrhea K58.0 Active 276716740 Problem Irritable bowel syndrome without diarrhea K58.9 Active 20402530 Problem Abnormal CT scan, sigmoid colon R93.3 Active Problem Diverticulosis K57.90 Active 506201301 Problem Hiatal hernia K44.9 Active 36136418 Problem History of adenomatous polyp of colon Z86.010 Active 159504938 Problem Irritable bowel syndrome with constipation K58.1 Active 628869433 Problem Gastroesophageal reflux disease, unspecified whether esophagitis present K21.9 Active Problem Irritable bowel syndrome with both constipation and diarrhea K58.2 Active 13210626 Problem GERD (gastroesophageal reflux disease) K21.9 Active Problem Rectal bleeding K62.5 Active 26060641 Problem LLQ abdominal pain R10.32 Active 63813 6002 Problem Heme + stool R19.5 Active 710343899 ALLERGIES Substance Reaction Event Type Date Status garlic Unknown Non Drug Allergy Dec, Active Flagyl Unknown Drug Allergy Dec, Active Augmentin Unknown Drug Allergy Dec, Active Sulfa Unknown Drug Allergy Dec, Active ENCOUNTERS Encounter Location Date Diagnosis [facility] [address] [place] [address] 23 Feb, 2023 [facility] [address] [place] [address] 19 Feb, 2023 [facility] [address] [place] [address] 16 Feb, 2023 [facility] [address] [place] [address] January, [facility] [address] [place] January, [facility] [address] [place] January, [facility] [address] [place] [address] 24 Dec, 2022 [facility] [address] [place] [address] 18 Dec, 2022 [facility] [address] [place] 11 Dec, 2022 [facility] [address] [place] [address] 10 Dec, 2022 [facility] [address] [place] [address] 05 Dec, 2022 Heme + stool R19.5 ; LLQ abdominal pain R10.32 ; Gastroesophageal reflux disease, unspecified whether esophagitis present K21.9 ; History of adenomatous polyp of colon Z86.010 and Irritable bowel syndrome with constipation K58.1 [facility] [address] [place] [address] Nov, [facility] [address] [place] [address] Nov, [facility] [address] [place] [address] Oct, [facility] [address] [place] [address] Sep, [facility] [address] [place] [address] Sep, [facility] [address] [place] [address] 17 Sep, 2022 [facility] [address] [place] 27 Aug, 2022 [facility] [address] [place] 13 Aug, 2022 [facility] [address] [place] Aug, [facility] [address] [place] 28 Jul, 2022 [facility] [address] [place] Jul, [facility] [address] [place] Jun, [facility] [address] [place] [address] 29 May, 2022 [facility] [address] [place] Mar, [facility] [address] [place] Feb, [facility] [address] [place] Feb, [facility] [address] [place] Dec, Gastroesophageal reflux disease without esophagitis K21.9 and Irritable bowel syndrome with both constipation and diarrhea K58.2 [facility] [address] [place] 10 Oct, 2021 [facility] [address] [place] 07 Oct, 2021 [facility] [address] [place] Sep, [facility] [address] [place] 30 Sep, 2021 [facility] [address] [place] [address] Sep, [facility] [address] [place] 24 Sep, 2021 Rectal bleeding K62.5 [facility] [address] [place] [address] Jul, [facility] [address] [place] 22 Jun, 2021 [facility] [address] [place] [address] 19 Jun, 2021 [facility] [address] [place] 18 Jun, 2021 [facility] [address] [place] [address] 15 Jun, 2021 [facility] [address] [place] Jun, [facility] [address] [place] [address] 23 Apr, 2021 [facility] [address] [place] [address] Apr, Irritable bowel syndrome with both constipation and diarrhea K58.2 ; GERD (gastroesophageal reflux disease) K21.9 and Hiatal hernia K44.9 [facility] [address] [place] [address] Mar, [facility] [address] [place] [address] 24 Feb, 2021 [facility] [address] [place] [address] 24 Feb, 2021 [facility] [address] [place] 15 Feb, 2021 [facility] [address] [place] [address] 15 Feb, 2021 [facility] [address] [place] [address] 11 Feb, 2021 [facility] [address] [place] [address] 28 Dec, 2020 [facility] [address] [place] [address] 22 Jun, 2020 [facility] [address] [place] 14 Jun, 2020 [facility] [address] [place] Jun, [facility] [address] [place] Feb, [facility] [address] [place] Feb, [facility] [address] [place] Feb, [facility] [address] [place] January, [facility] [address] [place] [address] Oct, [facility] [address] [place] Sep, Irritable bowel syndrome with both constipation and diarrhea K58.2 ; GERD (gastroesophageal reflux disease) K21.9 and Hiatal hernia K44.9 [facility] [address] [place] [address] Sep, [facility] [address] [place] [address] Sep, [facility] [address] [place] Sep, [facility] [address] [place] Sep, [facility] [address] [place] Sep, [facility] [address] [place] Aug, [facility] [address] [place] [address] Aug, [facility] [address] [place] Aug, [facility] [address] [place] [address] Jun, [facility] [address] [place] [address] Jun, [facility] [place] [address] [place] [phone] Jun, GERD (gastroesophageal reflux disease) K21.9 ; Hiatal hernia K44.9 ; Abnormal abdominal CT scan R93.5 and Colon polyp K63.5 [facility] [address] [place] [address] Jun, [facility] [address] [place] [address] May, [facility] [address] [place] [address] May, [facility] [address] [place] [address] Mar, [facility] [address] [place] [address] Feb, [facility] [address] [place] [address] January, [facility] [address] [place] [address] Dec, [facility] [address] [place] [address] Dec, Irritable bowel syndrome with constipation K58.1 ; Abnormal CT scan, sigmoid colon R93.3 ; Diverticulosis K57.90 and Gastroesophageal reflux disease without esophagitis K21.9 [facility] [address] [place] [address] Dec, [facility] [address] [place] [address] Dec, [facility] [address] [place] [address] Dec, [facility] [address] [place] [address] Mar, [facility] [address] [place] [address] Oct, Irritable bowel syndrome with both constipation and diarrhea K58.2 [facility] [address] [place] [address] Oct, [facility] [address] [place] [address] May, [facility] [address] [place] [address] Apr, [facility] [address] [place] [address] Mar, [facility] [address] [place] [address] [place] Mar, [facility] [address] [place] [address] [place] [address] Feb, Irritable bowel syndrome with diarrhea K58.0 [facility] [address] [place] [address] [place] [address] Feb, [facility] [address] [place] [address] [place] [address] Sep, [facility] [address] [place] [address] Aug, Irritable bowel syndrome without diarrhea K58.9 ; Gastroesophageal reflux disease without esophagitis K21.9 and Diverticulitis of large intestine without perforation or abscess without bleeding K57.32 [facility] [address] [place] [address] May, [facility] [address] [place] [address] Apr, [facility] [address] [place] [address] Feb, [facility] [address] [place] [address] Feb, Irritable bowel syndrome 564.1 ; Hypertension 401.9 ; Change in bowel habits 787.99 and Diverticulitis of colon 562.11 [facility] [address] [place] [address] Aug, [facility] [place] [address] [place] [phone] Sep, [facility] [address] [place] [address] Sep, [facility] [address] [place] [address] Jul, [facility] [address] [place] [address] Jul, Abdominal pain, epigastric 789.06 ; Colon cancer screening V76.51 and History of adenomatous polyp of colon V12.72 [facility] [place] [place] [address] [phone] Jun, 2007 [facility] [place] [address] [phone] Nov, [facility] [place] [address], [place] [phone] 08 Dec, 2003 IMMUNIZATIONS Vaccine Route Administration [...] Result Body Site PRES/ABSN URINE INCON ASSESS Aug 07, 2015 BP SCR NOT PRFRM REC REASON NOS December 07, 2022 COLORECTAL CA SCREEN DOC REV February 06, 2015 TOBACCO NON-USER Oct 03, 2019 TOBACCO NON-USER December 26, 2018 PRES/ABSN URINE INCON ASSESS Oct 03, 2019 BMI >=30 CALCUATE W/FOLLOWUP Aug 07, 2015 DOC MEDS VERIFIED W/PT OR RE December 14, 2021 DOC MEDS VERIFIED W/PT OR RE Oct 17, 2017 UPPER GI ENDOSCOPY, BIOPSY Jun 07, 2019 PRES/ABSN URINE INCON ASSESS December 26, 2018 PATIENT NOT ELIG D/T ACTIVE DX HTN Apr 20, 2021 DOC MEDS VERIFIED W/PT OR RE December 07, 2022 BP SCR NOT PRFRM REC REASON NOS December 14, 2021 PRES/ABSN URINE INCON ASSESS Oct 17, 2017 PRES/ABSN URINE INCON ASSESS February 06, 2015 DOC MEDS VERIFIED W/PT OR RE Apr 20, 2021 BP SCR PRFRM RCMDD DEFIND SCR INTVL December 26, 2018 LESION REMOVAL COLONOSCOPY Jun 07, 2019 BMI >=30 CALCUATE W/FOLLOWUP February 06, 2015 BP SCR PRFRM RCMDD DEFIND SCR INTVL Oct 03, 2019 FLU IMMUNIZE ORDER/ADMIN February 06, 2015 TOBACCO NON-USER February 06, 2015 TOBACCO NON-USER December 14, 2021 DOC MEDS VERIFIED W/PT OR RE Aug 07, 2015 TOBACCO NON-USER December 07, 2022 TOBACCO NON-USER Oct 17, 2017 DOC MEDS VERIFIED W/PT OR RE February 06, 2015 DOC MEDS VERIFIED W/PT OR RE Oct 03, 2019 PREHTN/HTN BP DOC INDCD F/U DOC February 06, 2015 DOC MEDS VERIFIED W/PT OR RE December 26, 2018 BP SCR PRFRM RCMDD DEFIND SCR INTVL Aug 07, 2015 FLU IMMUNIZE ORDER/ADMIN Oct 17, 2017 TOBACCO NON-USER Aug 07, 2015 TOBACCO NON-USER Apr 20, 2021 BP SCR PRFRM RCMDD DEFIND SCR INTVL Oct 17, 2017 COLORECTAL CA SCREEN DOC REV Aug 07, 2015 BMI >=30 CALCUATE W/FOLLOWUP Oct 17, 2017 FLU IMMUNIZE ORDER/ADMIN Aug 07, 2015 RESULTS Name Result Date Reference Range GI [...] terrible gas, refill request/omeprazole, RE: Vomiting/ waiting application support lead back,diarrhea/ patient called back/ waiting on notes [...] [employer] [address] [employer] [facility] [place] [address] [facility] [employer] carla KNIGHT [id number] [employer] [place] [address] [facility] [place] [address] [employer] [place] KNIGHT [id number]
--- OUTSIDE RECORDS SUMMARY | 2023-03-27 19:58 | XMS_ITS | Patient Health Record ---
Author Name Unknown [facility] Address [address] [place] [address] Care Team Providers Care Account Development Specialist Name Role Phone Nick Gomez Primary Care Provider Unavailab Kwadwo Braswell Unavailable [phone] Josh Blanc Unavailable [phone] Julieth Rosa Unavailable [phone] ALLERGIES Allergen (clinical drug ingredient) Drug/Non Drug [...] confirmed Acquired hammer toe of left foot (3744114833483236 ) Problem Atherosclerosis of [place] artery of both lower extremities, with unspecified presence of clinical manifestation (I70.203) Active confirmed Atherosclerosis of [place] arteries of the extremities (479175032534714) Problem Arthritis of joint of lesser toe, left (M19.072) Active confirmed Localized, primary osteoarthritis of the ankle and/or foot (634346533) VITAL SIGNS Height 5 ft 8 in in 02/10/2023 Weight 173 lbs 02/10/2023 BMI 26.3 kg/m2 02/10/2023 Encounters Encounter Location Date Provider Diagnosis [address] [address] 04/05/2022 [facility] [address] 04/05/2022 [facility] [address] 06/23/2022 [facility] [address] 06/24/2022 [facility] [address] [address] 08/19/2022 Kwadwo Hendricks [address] [address] 08/19/2022 Kwadwo Schultzier [facility] [address] 09/20/2022 Kwadwoedmundo Hendricks [facility] [address] 09/20/2022 Kwadwo Hendricks [address] [address] 09/20/2022 Kwadwoedmundo Hendricks Atherosclerosis of 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 artery of both lower extremities, with unspecified presence of clinical manifestation I70.203 ; Tinea unguium B35.1 ; Pain in right toe(s) M79.674 and Pain in left toe(s) M79.[address] [address] 01/06/2023 Kwadwo Ruthie [address] [address] 01/24/2023 Kwadwo Hendricks [facility] [address] [address] 01/25/2023 Josh Blacn [facility] [address] [address] 02/10/2023 Kwadwo Hendricks Skin ulcer of toe of left foot, limited to breakdown of skin L97.521 ; Pain in left toe(s) M79.675 ; Other hammer toe(s) (acquired), left foot M20.42 ; Arthritis of joint of lesser toe, left M19.072 and Other subluxation of left foot, initial encounter S93.332A [facility] [address] 02/10/2023 Kwadwo Hendricks ASSESSMENTS Encounter Date Diagnosis Assessment Notes Treatment Notes Treatment Clinical Notes 09/20/2022 Ingrowing nail (ICD- 10 - L60.0) 09/20/[address] [place] artery of both lower extremities, with unspecified presence of clinical manifestation (ICD-10 - I70.203) 11/25/2022 Non-pressure chronic ulcer of other part of left foot limited to breakdown of skin (ICD-10 - L97.521) 11/25/2022 Pain in left toe(s) (ICD-10 - M79.675) 01/06/2023 Tinea unguium (ICD-1 0 - B35.1) 01/06/[address] [place] artery of both lower extremities, with unspecified [...] Name Order Date *Uric Acid, Serum 11/27/2020 [id number] NAIL, 6 OR MORE 11/23/2021 07808-COJVPMO NAIL, 6 OR MORE 09/08/2020 83138-JREOGLC NAIL, 6 OR MORE 06/12/2020 29390-KQSNAAJ NAIL, 6 OR MORE 12/02/2011 04762-YKUTMGW NAIL, 6 OR MORE 01/10/2017 25270-UQUNGOG NAIL, 6 OR MORE 02/02/2018 04528-UAJJZPF NAIL, 6 OR MORE 11/24/2017 02695-HQEPYYP NAIL, 6 OR MORE 08/07/2018 85589-MGLVENF NAIL, 6 OR MORE 04/16/2019 05830-BOUCVUF NAIL, 6 OR MORE 03/20/2020 28224-LDIEQWZ NAIL, 6 OR MORE 09/20/2022 15521-KCAWLPJ NAIL, 6 OR MORE 01/06/2023 96300-BPEYZGD NAIL, 6 OR MORE 03/23/2021 69312-CKBXARM NAIL, 6 OR MORE 08/25/2017 49131-PRLQWEQ NAIL, 6 OR MORE 07/19/2016 92336-JPZPAHM NAIL, 6 OR MORE 03/24/2015 84728-PFOSCNM NAIL, 6 OR MORE 10/10/2014 19188-UAJXRRE NAIL, 6 OR MORE 07/10/2012 79280-GZAAQJW NAIL, 6 OR MORE 04/06/2012 41394-Rzueoymx Plate 03/23/2021 53203-Qbgzvole Plate 09/20/2022 64168-Zmmlaktb Plate 03/20/2020 07076-Nicaapej Plate 04/16/2019 35103-Obnkcffw Plate 06/12/2020 02432-Kcabmevs Plate 09/08/2020 90518-Eekhervi Plate 11/23/2021 66149-Wkpsdxle Plate Each Additional 28158-Mjbzirmb Plate Each Additional 41569- Debride <25 sq cm 12/31/2021 57775- Debride <25 sq cm 11/25/2022 66909- Debride <25 sq cm 02/10/2023 67978- Debride <25 sq cm 03/24/2015 59310-LABU SKIN LESIONS, OVER 4 09/20/19 23 41234-PEWT SKIN LESIONS, OVER 4 01/07/20 23 31208-UNFV SKIN LESIONS, 2 TO 4 11/24/19 22 78278, Z6313-IDMWW/INJECT, JOINT/BURSA 0 09/08/2020 85734 - Tenotomy, open flexor 12/01/2017 Next Appt Details Provider Name:Kwadwo Hendricks , 04/11/2023 11:30:00 AM, [address] [facility], [place], [address], Insurance Providers Payer Name Payer Address Payer Phone Subscriber Number Group Number Insured Name Patient Relationship to Insured Coverage Start Date Coverage End Date Medicare National [employer] [address] [facility] [place] [address] [phone] [id number] Jessica Henleye Self - patient is the insured [facility] [address] [place] [phone] [id number] Bella Henley Self - patient is the insured MEDICAL (GENERAL) HISTORY Medical History History ICD Code back, hip, knee pain transfusions reflux measles chicken pox Anxiety disorder Peripheral neuropathy Surgical History Surgery Date(Month/Year) tonsillectomy appendectomy intestinal blockage 11/2013 Hospitalization History Reason Date(Month/Year) [facility] [place]- stomach pains - Gerd /IBS due to anxiety 01/2021,02/2021 Patient admitted to [facility] x 5 days; diverticulitis 12/2014
[2023-03-27] MEDS: Lidocaine 4 % Patch ADH..PATCH 1 PATCH TRANSDERMA (20:03)
--- NOTE | 2023-03-27 22:43 | PC.NURSE ---
report given to TERRA Burgos
[2023-03-27 23:47] VITALS: BP 143/83; PULSE 84; RESP 14; TEMP 36.7; O2SAT 97
[2023-03-28] MEDS: Celecoxib 200 MG CAPSULE PO ×2 (01:01→09:27)
[2023-03-28 08:00] VITALS: BP 140/80; PULSE 97; RESP 18; TEMP 36.3; O2SAT 96
--- NOTE | 2023-03-28 09:35 | PHA.MEDREC ---
Pharmacy Consult ? Medication Reconciliation Pharmacy has completed the medication reconciliation. Spoke to patient to confirm meds.
--- NOTE | 2023-03-28 09:43 | PC.NURSE ---
assumed care of pt at 0700. pt a&o x4, pleasant, calm, and cooperative. pt up ad dominique with walker. asking for tylenol for a headache and miralax for constipation. awaiting for med rec to go through to medicate pt. otherwise in no apparent distress vinita. currently in bathroom. tm
[2023-03-28] MEDS: Acetaminophen 325 MG TABLET 650 MG PO (11:42)
[2023-03-28] MEDS: polyethylene glycoL 3350 17 GM POWD.PACK PO (11:42)
[2023-03-28 12:46] VITALS: BP 131/92; PULSE 86; RESP 16; TEMP 36.3; O2SAT 98
[2023-03-28] MEDS: ALPRAZolam 0.25 MG TABLET PO (13:32)
--- NOTE | 2023-03-28 14:27 | MHC.CM.ED ---
Received case management consult overnight. Patient came to the ER due to hip pain. Patient was d/c'd to [facility] on 03/03. Patient was d/c'd home from [facility] with [facility] on 03/16. Physical therapy eval completed. Home therapy is recommended. Met with patient in regards to discharge planning. Patient is worried about going home because of back pain. 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 Patient is currently on Celebrex. Patient requesting to see provider in regards to pain. Apple GAVIN aware, met with patient and ordered tylenol. HCP completed, signed and witnessed. Original given to patient. Copy placed in chart. Spoke with patient's son/HCP, Hi, via telephone at [phone]. Hi feels patient was doing really well after Meño. However, he feels she was overdoing it by lifting a laundry basket. Hi feels patient can safely return home and that patient tends to get worried about symptoms and seeks out a doctor. Hi feels this has been increasing since his dad 2 years ago. Hi feels his mom is lonely because he is the lonely family around that is able to help her. Information on finding a dexigraph operator or home health aide provided. Hi will be in ER around 3pm to transport patient home. Patient, Abimbola ELLISON and Apple GAVIN aware. [facility] made aware patient will d/c home. Continue to monitor for d/c needs.
== END 2023-03-28 14:53 | disposition home or self-care (01) ==
PROVIDERS: Emergency Provider Student in an Organized Health Care Education/Training Program; PCP Physician Assistant
DX: M16.11 Unilateral primary osteoarthritis, right hip (principal); M25.551 Pain in right hip
CPT/HCPCS: 73502; 97161; 99284

== ENCOUNTER 2023-03-30 12:30 | Outpatient (AMB) | payer MEDICARE, OTHER, SELFPAY ==
--- NOTE | 2023-03-30 12:32 | A.OFFVIS_ITS ---
Intake Intake Visit Reasons: OV - right knee injection Intake Note: Bella 82 yr old female presents today for her s/p bilateral knee injections from 11/03/22. States injection relief pain and would like to repeat injections today. Patient mentioned she had her left knee injected about 5 weeks ago at the rehab facility but states it is not helping at all. Patient would like to have her right knee injection today. Also patient mentioned she had 1 or 2 questions regarding her left pelvic fracture s/p falling down. Allergies buspirone Allergy (Intermediate, Verified 03/30/23 12:40) Rash Sulfa (Sulfonamide Antibiotics) Allergy (Intermediate, Verified 03/30/23 12:40) RASH amoxicillin [From AUGMENTIN] Allergy (Unknown, Verified 03/30/23 12:40) PER H&P clavulanic acid [From AUGMENTIN] Allergy (Unknown, Verified 03/30/23 12:40) PER H&P garlic [GARLIC] Allergy (Unknown, Verified 03/30/23 12:40) PER H&P metronidazole [From FLAGYL] Allergy (Unknown, Verified 03/30/23 12:40) OCULAR MIGRAINES penicillamine Allergy (Unknown, Verified 03/30/23 12:40) Unknown ciprofloxacin Adverse Reaction (Intermediate, Verified 03/30/23 12:40) neuropathic pain lisinopril Adverse Reaction (Intermediate, Verified 03/30/23 12:40) Cough nitrofurantoin Adverse Reaction (Mild, Verified 03/30/23 12:40) GI side effects environmental Allergy (Unknown, Uncoded 03/30/23 12:40) Unknown flagyl Allergy (Unknown, Uncoded 03/30/23 12:40) Unknown From KEFLEX Allergy (Unknown, Uncoded 03/30/23 12:40) RASH Metoprolol Tartrate Allergy (Unknown, Uncoded 03/30/23 12:40) Unknown Sulfacet-R Allergy (Unknown, Uncoded 03/30/23 12:40) Unknown HPI OV - right knee injection HPI Details 82-year-old female who presents in the office today for a follow up of bilateral knee pain. The patient had her last cortisone injection on 11/03/2022 in the bilateral knees, which gave her pain relief. She would like to have an injection in the right knee. Patient reports having a cortisone injection in the left knee 5 weeks ago at the rehab facility, with no relief. Patient also has a few questions about her right hip pain. [facility] Medical History Anxiety Arthritis Diverticulitis GERD (gastroesophageal reflux disease) Heart murmur HTN (hypertension) Irritable bowel Neuropathy Surgical History History of appendectomy History of tonsillectomy Hx of colonoscopy Hx of esophagogastroduodenoscopy Family History Father No problems noted. Mother No problems noted. Social History Household Members: Children Housing: House Are you a primary health care legal assistant to a significant other at home: No Do you presently have visiting nurse or other home services: No Alcohol intake: never Patient Tobacco Use Status: Former Tobacco user Quit Date: 2013 e-Cigarette/Vaping Use: Never Used Second Hand Smoke Exposure: No Advance Directives Date on File: 11/21/22 service: No Current occupational status: retired Cognitive needs: No Hearing needs: No Vision needs: Yes (glasses) Review of Systems Const All systems reviewed & are unremarkable except as noted in HPI and below Physical Exam Const General: cooperative, healthy appearing and no acute distress Resp Effort & Inspection: normal respiratory effort and able to speak in complete sentences Cardio Rate: regular rate Peripheral pulses: Peripheral pulses 2+ throughout GI Palpation (GI): Soft to palpation Skin Lesions: no lesions Rashes: no rashes Extrem Other: Right knee: Normal to inspection. No ecchymosis, erythema, or joint effusion. No tenderness to palpation to the medial or lateral joint lines. Crepitus felt with ROM. Full knee extension and flexion. Negative Analia's. NVI. Right hip: Able to perform straight leg raise with groin pain. Tenderness to palpation over the greater trochanteric bursa and SI joint. Full hip ROM in all planes. Office Procedures Joint Injection/Drain Joint Injection/Drain Primary Site: right knee Prep: site was prepped using aseptic technique, site was prepped using sterile technique and ethochloride spray was applied Injected: 80 mg of, DepoMedrol and with 8 mL of (2% plain lido) Approach Used: anterolateral Procedure: The patient tolerated the procedure well, but had some pain with the injection and there was some relief with the local anesthesia Coding - Large joint Procedure code (CPT) selection complete Results Reviewed Results Reviewed: 03/30/23 12:54 Lidocaine HCl 2 % MPF [Xylocaine 2 % MPF] 5 ml .ROUTE .STK-MED ONE methylPREDNISolone acetate [DEPO-MedroL] 80 mg .ROUTE .STK-MED ONE Assessment & Plan Assessment & Plan (1) Osteoarthritis of left knee: Code(s): M17.12 - Unilateral primary osteoarthritis, left knee Plan Ms. Henley is an 82-year-old female who presents in the office today for a follow up of bilateral knee pain. The patient had her last cortisone injection on 11/03/2022 in the bilateral knees, which gave her pain relief. She would like to have an injection in the right knee. Patient reports having a cortisone injection in the left knee 5 weeks ago at the rehab facility, with no relief. Patient also has a few questions about her right hip pain. The patient was offered a cortisone injection in right right knee with 80 mg of depo. The patient was explained the risk, benefits, and alternatives to receiving this injection. After receiving consent for the injection, the patient had the procedure done while in office today. The patient tolerated the procedure well with no complications. I placed a referral for a cortisone injection under ultrasound guidance at the hospital. She will also be referred to Pain Management for further evaluation and treatment of her right hip. Follow up will be PRN, or sooner if needed. Orders: Orders FL arthrogram hip RT Today M16.11 - Unilateral primary osteoarthritis, right hip Referrals Pain Management Referral M54.50 - Low back pain, unspecified Medications: Discontinued fluticasone propionate 50 mcg/actuation administer into each nostril 1 spray intranasal DAILY 30 days 16 grams 3RF J30.9 - Allergic rhinitis, unspecified Patient Instructions: Scribed for Nora Sosa PA-C by Mikaela Cordero medical scientific officer, on 03/30/2023 at 12:36 pm, EST. Your attestation Coding Level of Care Code Est Pt Level 3 (47572) Diagnoses Osteoarthritis of left knee M17.12 CPT Codes Coding - Large joint: 16444 - Large joint ([id number])
== END 2023-03-30 13:32 | disposition home or self-care (01) ==
PROVIDERS: PCP Physician Assistant; Visit Provider Physician Assistant
DX: M17.0 Bilateral primary osteoarthritis of knee (principal)
CPT/HCPCS: 20610; 99213

== ENCOUNTER → 2023-03-30 12:30 | Outpatient (BNVA) | payer MEDICARE, OTHER, SELFPAY | PROVIDERS: PCP Physician Assistant; Visit Provider Physician Assistant | DX: M17.11 Unilateral primary osteoarthritis, right knee (principal); M54.50 Low back pain, unspecified | CPT/HCPCS: 20610; 99212; J1040 ==

== ENCOUNTER 2023-03-31 10:32 | Outpatient (AMB) | payer MEDICARE, OTHER, SELFPAY ==
[2023-03-31 10:35] VITALS: BP 148/90; PULSE 98; O2SAT 98; BMI 27.1
--- NOTE | 2023-03-31 10:35 | MHC.PC.OV ---
Vital Signs 03/31/23 10:35 Height 5 ft 6 in Weight 168 lb BMI 27.1 BP 148/90 H Blood Pressure Location Lt brachial Position Sitting Pulse 98 Pulse Source Pulse Oximeter Temp Source Skin Pulse Oximetry (%) 98 Oxygen Delivery Method Room Air Intake Visit Reasons: 02/13/23 [facility], pubic rami fracture. Intake Note: Patient is here to follow-up after a visit the emergency department at [facility] on 03/01/23 discharged 03/15/2023 Volumetric Weigher Required: No Allergies buspirone Allergy (Intermediate, Verified 03/31/23 10:58) Rash Sulfa (Sulfonamide Antibiotics) Allergy (Intermediate, Verified 03/31/23 10:58) RASH amoxicillin [From AUGMENTIN] Allergy (Unknown, Verified 03/31/23 10:58) PER H&P clavulanic acid [From AUGMENTIN] Allergy (Unknown, Verified 03/31/23 10:58) PER H&P garlic [GARLIC] Allergy (Unknown, Verified 03/31/23 10:58) PER H&P metronidazole [From FLAGYL] Allergy (Unknown, Verified 03/31/23 10:58) OCULAR MIGRAINES penicillamine Allergy (Unknown, Verified 03/31/23 10:58) Unknown ciprofloxacin Adverse Reaction (Intermediate, Verified 03/31/23 10:58) neuropathic pain lisinopril Adverse Reaction (Intermediate, Verified 03/31/23 10:58) Cough nitrofurantoin Adverse Reaction (Mild, Verified 03/31/23 10:58) GI side effects environmental Allergy (Unknown, Uncoded 03/31/23 10:41) Unknown flagyl Allergy (Unknown, Uncoded 03/31/23 10:41) Unknown From KEFLEX Allergy (Unknown, Uncoded 03/31/23 10:41) RASH Metoprolol Tartrate Allergy (Unknown, Uncoded 03/31/23 10:41) Unknown Sulfacet-R Allergy (Unknown, Uncoded 03/31/23 10:41) Unknown Medication List - Last Reconciled 03/31/23 by Mikaela Qiu, CHALK EXTRUDING MACHINE OPERATOR acetaminophen 1,000 mg PO Q6H PRN alprazolam 0.25 mg PO BID PRN celecoxib 200 mg PO BID cholecalciferol (vitamin D3) 50 mcg PO DAILY citalopram 10 mg PO BEDTIME cyanocobalamin (vitamin B-12) (Vitamin B-12) 1,000 mcg PO DAILY docusate sodium 100 mg PO BID fexofenadine 180 mg PO DAILY PRN fluticasone propionate 50 mcg/actuation 2 sprays intranasal DAILY losartan 25 mg PO DAILY melatonin 3 mg PO BEDTIME ondansetron HCl 4 mg PO Q8H PRN pantoprazole 40 mg PO DAILY@0630 polyethylene glycol 3350 17 grams PO DAILY PRN Tobacco use date assessed: 03/31/23 Fall risk assessment: 1 Fall in past year Last assessed Fall Risk: 03/31/23 HPI HPI Comments History of Present Illness Details 82 year-old female past medical history significant for LDD, constipation, GERD,diverticulits, HTN , PAIGE? and IBS. Patient of Alberto Gomez last seen in February. Patient presents today for hospital discharge follow up. Patient was seen [facility] ED on 02/28/23 after patient is suffering 2 falls that week patient states she was wearing new shoes and lost her balance denies any head injury. Patient was reporting green pain x-ray of pelvis on 03/01/2023 showed fracture inferior pubic ramus on left side. CT of left hip was complaining of which showed a comminuted fracture of left inferior pubic was not as significantly displaced, fracture of the left superior pubic ramus near the degenerated pubic symphisis displaced by up to 0.2-0.3cm, patchy hematoma. Patient was discharged from [facility] to [facility] and patient rehab. Patient completed PT,OT speech.Currently ambulating with walker. Patient h/h was noted to be low in rehab 8.0/24.2. Repeat CBC ordered. Since this admission patient has reported back to [facility] ER multiple times for acute on chronic hip pain. Patient was seen by orthopedic at home patient was started on Celebrex for the pain. Patient also recently underwent steroid injection of her right knee. Patient reports she has an appointment coming up so she can have an injection in her hip to help alleviate the pain and she states she made appointment to follow-up with her chiropractor for her history of right-sided sciatica pain. Refills sent on requested prescriptions. [facility] Medical History Anxiety Arthritis Diverticulitis GERD (gastroesophageal reflux disease) Heart murmur HTN (hypertension) Irritable bowel Neuropathy Surgical History History of appendectomy History of tonsillectomy Hx of colonoscopy Hx of esophagogastroduodenoscopy Family History Father No problems noted. Mother No problems noted. Social History Household Members: Children Housing: House Are you a primary personal care worker to a significant other at home: No Do you presently have visiting nurse or other home services: No Alcohol intake: never Patient Tobacco Use Status: Former Tobacco user Quit Date: 2013 e-Cigarette/Vaping Use: Never Used Second Hand Smoke Exposure: No Advance Directives Date on File: 11/21/22 service: No Current occupational status: retired Cognitive needs: No Hearing needs: No Vision needs: Yes (glasses) Questionnaire Thrive Questionnaire Date Thrive assessed: 01/23/23 AUDIT C Alcohol Use Questionnaire (AUDIT-C) 1. How often do you have a drink containing alcohol?: Never Total Score: 0 PAIGE-7 AMB Questionnaire PAIGE-7 Date PAIGE - 7 assessed: 10/06/22 Source: Developed by Drs. Anatoliy Gavin, Peyton Hunt, Austyn Weber and colleagues, with an educational kentrell from [employer]. Review of Systems Const Denies chills, Denies fatigue, Denies fever(s) and Denies poor appetite Eyes Denies no additional complaints ENT Reports Normal hearing present Card Denies chest pain, Denies syncope, Denies rapid heart rate and Denies dyspnea Resp Denies cough and Denies dyspnea GI Denies change in stool character, Denies constipation, Denies diarrhea, Denies nausea and Denies vomiting Denies urinary frequency, Denies dysuria and Denies urinary urgency Neuro Reports Normal hearing present, Denies confusion and Denies syncope Psych Denies confusion Endo Denies fatigue Physical exam (Primary Care) Vital Signs: Last Vital Signs Pulse 98 03/31/23 10:35 BP 148/90 H 03/31/23 10:35 Pulse Ox 98 03/31/23 10:35 Oxygen Delivery Method Room Air 03/31/23 10:35 BMI result Body Mass Index 27.1 Tobacco/Smoking Status: Tobacco use Status Tobacco use date assessed 03/31/23 03/31/23 10:45 Patient Tobacco Use Status Former Tobacco user 03/31/23 10:45 e-Cigarette/Vaping Use Never Used 03/31/23 10:45 Thrive Assessment: Date of Thrive Assessment Date Thrive assessed 01/23/23 03/31/23 10:45 Const General: No confusion Orientation/consciousness: No confusion HENMT Head: Yes normocephalic and Yes atraumatic Eyes Conjunctivae: conjunctivae normal Chest Chest palpation & inspection: normal inspection of the chest Resp Effort & Inspection: normal respiratory effort Auscultation: clear to auscultation bilaterally, no crackles, no rhonchi and no wheezes Cardio Rate: regular rate Rhythm: regular rhythm Heart sounds: S1 normal heart sound present and S2 normal heart sound present GI Inspection: Yes normal to inspection Neuro General: No confusion Cranial nerves: Yes Normal hearing present Extrem General: No edema Assessment and Plan Assessment & Plan (1) Pubic ramus fracture: Code(s): S32.599A - Other specified fracture of unspecified pubis, initial encounter for closed fracture Plan: Continues Tylenol as needed for pain. WBAT, cotninue ambulate with walker. Continue to follow-up with orthopedic for hip injection (2) Pancytopenia: Code(s): D61.818 - Other pancytopenia Plan: Repeat CBC ordered. Patient denies CP,lightheadedness and sob. (3) HTN (hypertension): Code(s): I10 - Essential (primary) hypertension Qualifiers: Hypertension type: primary hypertension Qualified Code(s): I10 - Essential (primary) hypertension Plan: Continue on losartan 25mg daily. Follow low salt diet and exercise. (4) Hospital discharge follow-up: Code(s): Z09 - Encounter for follow-up examination after completed treatment for conditions other than malignant neoplasm Plan Keep scheduled follow up with pcp in 2 weeks. Orders: Orders Complete Blood Count Auto Diff Today Z13.0 - Encounter for screening for diseases of the blood and blood-forming organs and certain disorders involving the immune mechanism Medications: New losartan 25 mg PO DAILY 30 tabs 3RF I10 - Essential (primary) hypertension fluticasone propionate 50 mcg/actuation 2 sprays intranasal DAILY 16 grams 0RF cholecalciferol (vitamin D3) 50 mcg PO DAILY 30 tabs 3RF melatonin 3 mg PO BEDTIME 30 tabs 0RF Discontinued fluticasone propionate 50 mcg/actuation administer into each nostril 1 spray intranasal DAILY 30 days 16 grams 3RF J30.9 - Allergic rhinitis, unspecified Coding Level of Care Code Est Pt Level 4 (92969) Diagnoses Pubic ramus fracture S32.599A Pancytopenia D61.818 HTN (hypertension) I10 Hypertension type: primary hypertension Hospital discharge follow-up Z09
== END 2023-03-31 11:11 | disposition home or self-care (01) ==
PROVIDERS: PCP Physician Assistant; Visit Provider Nurse Practitioner Family
DX: S32.599A Other specified fracture of unspecified pubis, initial encounter for closed fracture (principal); D61.818 Other pancytopenia; I10 Essential (primary) hypertension; Z09 Encounter for follow-up examination after completed treatment for conditions other than malignant neoplasm
CPT/HCPCS: 99214

== ENCOUNTER 2023-04-04 12:27 | Outpatient (REF) | payer MEDICARE, OTHER, SELFPAY ==
[2023-04-04 14:33] LABS: Appearance Urine Clear; Color Urine Yellow; Glucose Urine UA Negative (Negative); Leukocyte Esterase Urine Negative (Negative); Nitrite Urine Negative (Negative); PH 6.5 (5.0-9.0); Specific Gravity - Urine 1.015 (1.005-1.025); Urine Blood Negative (Negative); Urine Ketones Negative (Negative); Urine Protein Negative (Neg-Trace)
== END 2023-04-04 12:28 | disposition home or self-care (01) ==
LOC: HO.LNP 12:27
PROVIDERS: Visit Provider Physician Assistant
DX: R39.9 Unspecified symptoms and signs involving the genitourinary system (principal)
CPT/HCPCS: 81003

== ENCOUNTER 2023-04-05 12:47 | Outpatient (REF) | payer MEDICARE, OTHER, SELFPAY ==
--- NOTE | ~2023-04-05 | FL_ITS ---
EXAMINATION: XR ARTHROGRAM HIP, RIGHT CLINICAL INFORMATION: Right hip pain. COMPARISON: 03/28/2023. TECHNIQUE: Fluoroscopic-guided intra-articular injection of the right hip with 8 mL of 1% lidocaine and 80 mg of methylprednisolone. FINDINGS: Informed consent was obtained from the patient prior to the procedure. During this process, the procedure and potential alternatives were explained, along with the intended outcome and benefits. The risks of the procedure, as well as the risk of not doing the procedure, were discussed. The patient was given the opportunity to ask questions regarding the procedure and appeared competent to make medical decisions. A signed consent form which documents this discussion was placed in the medical record. Using sterile technique and fluoroscopic guidance a 22-gauge spinal needle was directed down onto the right femoral neck. A small amount of contrast was injected demonstrating intra-articular positioning of the needle. A mixture of 80 mg of methylprednisolone and 8 mL of 1% lidocaine were then instilled into the joint space. The patient did not state that her pain got any better after the administration of the steroid and lidocaine. FLUOROSCOPY TIME: 0.9 minutes. DOSE AREA PRODUCT: 3.897 Gy-cm2 (damico-centimeter squared). FL/FL arthrogram hip RT IMPRESSION: Intra-articular steroid injection of the right hip with no immediate improvement in pain according to the patient.
== END 2023-04-05 12:48 | disposition home or self-care (01) ==
LOC: HO.XRAY 12:47
PROVIDERS: PCP Physician Assistant; Visit Provider Physician Assistant
DX: Z13.89 Encounter for screening for other disorder (principal)
CPT/HCPCS: 27093; 73525

== ENCOUNTER → 2023-04-05 12:48 | Outpatient (BNV) | payer MEDICARE, OTHER, SELFPAY | PROVIDERS: PCP Physician Assistant; Visit Provider Radiology Diagnostic Radiology | DX: M16.11 Unilateral primary osteoarthritis, right hip (principal) | CPT/HCPCS: 27093; 73525 ==

== ENCOUNTER 2023-04-05 15:16 | Emergency (ER) | payer MEDICARE, OTHER, SELFPAY ==
--- NOTE | ~2023-04-05 | XR_ITS ---
EXAMINATION: XR HIP, RIGHT CLINICAL INFORMATION: Right hip pain. COMPARISON: Right hip radiographs dated 03/27/2023. TECHNIQUE: Two views of the right hip. FINDINGS: Minimal bilateral hip degenerative joint changes are seen. There is no acute fracture or dislocation. Moderate pubic symphysis degenerative changes. Chronic left pubic bone deformity without interval change. The soft tissues are unremarkable. XR/XR hip RT w PEL1V IMPRESSION: Degenerative and chronic changes as detailed above without acute abnormality or change.
--- NOTE | ~2023-04-05 | CT_ITS ---
EXAMINATION: CT brain and CT cervical spine without contrast. CLINICAL INDICATIONS: Fall, head strike. COMPARISON: CT brain 03/02/2023 TECHNIQUE: 5 mm thin axial and reformatted 2 mm thin sagittal and coronal images of brain were obtained. Subsequently axial 3 mm thin and reformatted 2 mm thin sagittal and coronal images of cervical spine were obtained. DLP 903. This CT examination was performed using dose optimization technique as appropriate, variously including the following: Automated exposure control Adjustment of MA and/or KV according to patient size(this includes techniques or standardized protocols for targeted exams where dose is matched to indication/reason for exam; extremities or head. Use of iterative reconstruction techniques. FINDINGS: Brain: There is no acute intra-axial, extra-axial bleed, masses or midline shift. There is no acute infarction in evolution. There is moderate to significant dilatation of lateral ventricles with periventricular hypodensity in bilateral frontoparietal regions likely seepage of CSF or small vessel ischemic changes. Bone windows reveal no calvarial abnormality. There is no scalp soft tissue normality. Bilateral paranasal sinuses and mastoid air cells are well-aerated. Cervical spine: On sagittal reconstructed images there is maintained cervical lordosis. The vertebral heights and alignment is normal. There is mild loss of C6-C7 disc height with mild ventral and posterior spondylosis. The craniovertebral junction and C1-C2 alignment is normal. There is mild left C2-C3, C3-C4 and C4-C5 and moderate right C5-C6 and C6-C7 facet joint arthropathy and hypertrophy. No acute fracture, dislocation or subluxation seen. The prevertebral soft tissues are normal. There is bilateral apical parenchymal scarring. The tracheopharyngeal airway is widely patent. The prevertebral and paravertebral soft tissues are normal. CT/CT cervical spine wo IV con IMPRESSION: 1. No acute intracranial process seen. 2. Significant lateral ventricle dilatation with periventricular hypodensity as described above. 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 3. 4. There is no acute fracture, dislocation or subluxation in cervical spine. There are degenerative disc changes C6-C7 disc level with ventral and posterior spondylosis.
--- NOTE | ~2023-04-05 | XR_ITS ---
EXAMINATION: XR FOOT, RIGHT CLINICAL INFORMATION: Foot pain. COMPARISON: None available. TECHNIQUE: AP, lateral, and oblique views of the right foot. FINDINGS: Mild distal interphalangeal degenerative joint changes are seen. There is no acute fracture or dislocation. The tarsal bones are normally aligned. Small plantar and retrocalcaneal spurs are noted. The soft tissues are unremarkable. XR/XR foot RT min 3V IMPRESSION: 1. Mild distal interphalangeal degenerative joint changes suggesting osteoarthritis. No acute fracture. 2. Small degenerative calcaneal spurs.
[2023-04-05 16:03] VITALS: BP 151/90; PULSE 85; RESP 16; TEMP 36; O2SAT 95; BMI 26.3
--- NOTE | 2023-04-05 16:04 | ED.GENADULT ---
HPI - General Adult General Chief complaint: Fall Stated complaint: fall, hit back of head Time Seen by Provider: 04/05/23 19:26 History of Present Illness HPI narrative: Patient is an 82-year-old female who presents emergency department for evaluation of after a fall. She states that she was having had a right hip arthrogram today, as she has been experiencing pain to the right hip in the setting of a recent left pelvic fracture approximately 1 month ago. She was getting into her vehicle when she tripped on the door frame, falling backwards and striking her head. There was no loss of consciousness. She denies the use of anticoagulants. She is reporting a diffuse headache initially, but she states it is significantly improved at the time of my examination. Additionally she reports persistent pain to the right hip, though no worse than her baseline, and pain to the right foot. She has been experiencing chronic numbness to the right leg since her procedure. Denies any cold sensation to the foot. Denies any bladder or bowel dysfunction. She endorses no precipitating symptoms prior to the fall, reporting it to be strictly mechanical in nature. Related Data Home Medications Medication Instructions Recorded Confirmed acetaminophen 500 mg tablet 1,000 mg PO Q6H PRN Pain 03/28/23 03/31/23 alprazolam 0.25 mg tablet 0.25 mg PO BID PRN Anxiety 03/28/23 03/31/23 celecoxib 200 mg capsule 200 mg PO BID 03/28/23 03/31/23 citalopram 10 mg tablet 10 mg PO BEDTIME 03/28/23 03/31/23 cyanocobalamin (vitamin B-12) 1,000 mcg PO DAILY 03/28/23 03/31/23 1,000 mcg tablet (Vitamin B-12) docusate sodium 100 mg capsule 100 mg PO BID 03/28/23 03/31/23 fexofenadine 180 mg tablet 180 mg PO DAILY PRN Allergic 03/28/23 03/31/23 Symptoms ondansetron HCl 4 mg tablet 4 mg PO Q8H PRN Nausea 03/28/23 03/31/23 pantoprazole 40 mg tablet,delayed 40 mg PO DAILY@0630 03/28/23 03/31/23 release polyethylene glycol 3350 17 gram 17 g PO DAILY PRN Constipation 03/28/23 03/31/23 oral powder packet Previous Rx's Medication Instructions Recorded cholecalciferol (vitamin D3) 50 50 mcg PO DAILY #30 tabs 03/31/23 mcg (2,000 unit) tablet fluticasone propionate 50 2 spray intranasal DAILY #16 grams 03/31/23 mcg/actuation nasal spray,suspension losartan 25 mg tablet 25 mg PO DAILY #30 tabs 03/31/23 melatonin 3 mg tablet 3 mg PO BEDTIME #30 tabs 03/31/23 Allergies Allergy/AdvReac Type Severity Reaction Status Date / Time buspirone Allergy Intermediate Rash Verified 03/31/23 10:58 Sulfa (Sulfonamide Allergy Intermediate RASH Verified 03/31/23 10:58 Antibiotics) amoxicillin [From AUGMENTIN] Allergy Unknown PER H&P Verified 03/31/23 10:58 clavulanic acid Allergy Unknown PER H&P Verified 03/31/23 10:58 [From AUGMENTIN] garlic [GARLIC] Allergy Unknown PER H&P Verified 03/31/23 10:58 metronidazole [From FLAGYL] Allergy Unknown OCULAR Verified 03/31/23 10:58 MIGRAINES penicillamine Allergy Unknown Unknown Verified 03/31/23 10:58 ciprofloxacin AdvReac Intermediate neuropathic Verified 03/31/23 10:58 pain lisinopril AdvReac Intermediate Cough Verified 03/31/23 10:58 nitrofurantoin AdvReac Mild GI side Verified 03/31/23 10:58 effects environmental Allergy Unknown Unknown Uncoded 03/31/23 10:41 flagyl Allergy Unknown Unknown Uncoded 03/31/23 10:41 From KEFLEX Allergy Unknown RASH Uncoded 03/31/23 10:41 Metoprolol Tartrate Allergy Unknown Unknown Uncoded 03/31/23 10:41 Sulfacet-R Allergy Unknown Unknown Uncoded 03/31/23 10:41 Review of Systems Review of Systems: Constitutional: No weight loss. No fever. No chills. No weakness. No fatigue. Skin: No rash. No itching. Cardiovascular: No chest pain. No chest pressure. No palpitations. No pedal edema. Respiratory: No shortness of breath. No cough. No sputum production. Gastrointestinal: No anorexia. No nausea. No vomiting. No diarrhea. No abdominal pain. No blood in stool. Genitourinary: No burning micturition. No urinary frequency. No incontinence. Neurologic: Positive headache. No dizziness. No pre-syncope/ syncope. No unilateral weakness. No ataxia. No change in bowel or bladder control. Musculoskeletal: No muscle pain. No back pain. Positive joint pain. No stiffness. Hematologic: No bleeding. No bruising. Lymphatics: No enlarged lymph nodes. Psychiatric:No depression. No anxiety. Endocrine: No reports of sweating. No cold or heat intolerance. No polyuria. No polydipsia. Yes all other systems are reviewed and are negative PMFSH Past Medical History Attestation statement: The following information was validated with the patient. Source: old records reviewed Medical History Anxiety Arthritis Diverticulitis GERD (gastroesophageal reflux disease) Heart murmur HTN (hypertension) Irritable bowel Neuropathy Surgical History History of appendectomy History of tonsillectomy Hx of colonoscopy Hx of esophagogastroduodenoscopy Family History Family History Father No problems noted. Mother No problems noted. Social History Social History Household Members: Children Housing: House Are you a primary date night caregiver to a significant other at home: No Do you presently have visiting nurse or other home services: No Alcohol intake: never Patient Tobacco Use Status: Former Tobacco user Quit Date: 2013 Smoked in Last 30 Days: No e-Cigarette/Vaping Use: Never Used Second Hand Smoke Exposure: No Advance Directives: No Advance Directives Information Provided: No Advance Directives Date on File: 11/21/22 service: No Current occupational status: retired Cognitive needs: No Hearing needs: No Vision needs: Yes (glasses) Physical Exam ED Vital Signs: Vital Signs - 24 hr 04/05/23 16:03 Temperature 96.8 F Pulse Rate 85 Respiratory Rate 16 Blood Pressure 151/90 H Pulse Oximetry 95 Oxygen Delivery Method Room Air BMI result Body Mass Index 26.3 Appearance: Alert.?Oriented to person, place and time. No acute distress.?Normal affect. Head: Normocephalic, atraumatic Eyes: Pupils equal, round and reactive to light.? EOMI. No nystagmus. ENT: Pharynx normal.??TM normal bilaterally. Dentition normal. Neck: Normal inspection.? Neck supple.?? CVS: Heart sounds normal. Normal heart rate and rhythm.? Pulses normal.?? Respiratory: No respiratory distress.? Lung sounds clear to auscultation bilaterally?? Abdomen: Soft and non-tender. Normoactive bowel sounds. Skin: Skin warm and dry.? Normal skin color.? Extremities: No lower extremity edema.? No calf ttp. Intact AROM to the bilateral hips. 2+ DP/PT pulse bilaterally. Localized bruising to the 1st and 2nd digit of the right foot with full AROM. Neuro: Moves all extremities spontaneously. Sensation intact bilaterally. CN II-XII intact. No focal neuro deficits. Ambulates with slow steady gait and the use of a walker Course Course Course Narrative: This is an RME: Additional HPI, ROS, PE not included below will be deferred to primary provider. This is a past medical history of anxiety, arthritis, GERD, HTN, neuropathy, left pelvic fracture, presenting to the ED with complaints of head trauma and right hip pain since today. Patient states that she was in the hospital parking lot after having hip arthrogram today. She was getting into her vehicle when she suddenly fell while trying to get in and she hit the back of her head. reporting pain to right hip and head pain. Se has not tried to ambulate since the fall. No hemotypanum. VSS. She has numbness in her leg since the procedure as she was injected with lidocaine Plan: xray foot ordered, CT head/neck ordered, right hip xray ordered Reevaluation(s) Time: 20:16 Medical Decision Making Medical Decision Making [facility] Narrative: Patient is an 82-year-old female past medical history of anxiety, arthritis, GERD, diverticulitis, hypertension, neuropathy who presents emergency department for evaluation after mechanical fall as per HPI. At the time my examination she is overall well-appearing. There are no focal neurological deficits. She is speaking clear full sentences. CT of the head and cervical spine reveals no acute intracranial pathology, no traumatic fracture/subluxation. XR of the right hip as well as the right foot is without any acute fracture or dislocation. She was ambulatory with the use of a walker and slow steady gait while in the emergency department. She was offered evaluation by physical therapy/case management, however she declines reporting that she feels comfortable with discharge home. Her son is present at bedside who agrees with this plan of care. Discussed the use of acetaminophen as needed for pain. Outpatient follow-up with her primary care provider. Reviewed worrisome signs and symptoms that would warrant re-evaluation in the emergency department. All questions answered. Stable for discharge. Differential Diagnosis Differential Diagnoses: The differential diagnosis associated with the presentation includes (As noted above) Admission/Observation Consideration of admission/observation: Escalation of care including admission/observation considered (I considered hospital admission for fall with head strike, in addition to physician observation for case management/physical therapy evaluation, see narrative above for further detail.) Independent Interpretation I performed an independent interpretation of an: Plain X-Ray (I personally interpreted XR imaging of the right hip and right foot and agree with radiologist impression, there is no acute fracture or dislocation.) Radiology Impression Discussion of test interpretation with radiology: I have reviewed the radiologist's reading. Radiologist Impression: CT/CT head/brain wo IV con IMPRESSION: 1.? No acute intracranial process seen. ? 2.? Significant lateral ventricle dilatation with periventricular hypodensity as described above. 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 3.? 4.? There is no acute fracture, dislocation or subluxation in cervical spine. There are degenerative disc changes C6-C7 disc level with ventral and posterior spondylosis. XR/XR hip RT w [id number] IMPRESSION: Degenerative and chronic changes as detailed above without acute abnormality or change. XR/XR foot RT min 3V IMPRESSION: 1.? Mild distal interphalangeal degenerative joint changes suggesting osteoarthritis. No acute fracture. 2.? Small degenerative calcaneal spurs.? Independent Historian Clinical information obtained from an independent historian. History obtained from or confirmed by: Other (Patient's son is present who confirms history.) External Record Review External record reviewed: Outpatient record and Prior outpatient labs Prescription Management I considered prescription management with: Pain Medication (After evaluation, felt that acetaminophen would be appropriate for pain management at this time.) Discharge Plan Discharge Clinical Impression: Fall, Contusion of foot, right Patient Disposition: Home, Self-Care Instructions: Foot Contusion (ED), Fall Prevention (ED) Additional Instructions: You can take Tylenol 500 mg, 2 tablets (1,000mg) every 4-6 hours as needed for pain, but not to exceed 3 doses daily (3,000mg). Please be sure to rest, place ice to the area for 10-15 minutes 3-4 times daily?, elevate the leg when possible, follow-up with primary care provider as needed. You may return back to emergency department any new or worsening symptoms or concerns. Prescriptions: No Action celecoxib 200 mg capsule 200 mg PO BID polyethylene glycol 3350 17 gram powder in packet 17 g PO DAILY PRN (Reason: Constipation) citalopram 10 mg tablet 10 mg PO BEDTIME ondansetron HCl 4 mg tablet 4 mg PO Q8H PRN (Reason: Nausea) cyanocobalamin (vitamin B-12) [Vitamin B-12] 1,000 mcg tablet 1,000 mcg PO DAILY alprazolam 0.25 mg tablet 0.25 mg PO BID PRN (Reason: Anxiety) pantoprazole 40 mg tablet,delayed release (DR/EC) 40 mg PO DAILY@0630 docusate sodium 100 mg capsule 100 mg PO BID fexofenadine [[place]] 180 mg Tablet 180 mg PO DAILY PRN (Reason: Allergic Symptoms) acetaminophen 500 mg Tablet 1,000 mg PO Q6H PRN (Reason: Pain) losartan 25 mg tablet 25 mg PO DAILY Qty: 30 3RF fluticasone propionate 50 mcg/actuation spray,suspension 2 spray intranasal DAILY Qty: 16 0RF cholecalciferol (vitamin D3) 50 mcg (2,000 unit) tablet 50 mcg PO DAILY Qty: 30 3RF melatonin 3 mg tablet 3 mg PO BEDTIME Qty: 30 0RF Referrals: Nick Gomez PA-C [Primary Care Provider] - Interventions: ED Discharge Assessment Last Done: 04/05/23 21:19 Discharge Date/Time: 04/05/23 21:20
--- OUTSIDE RECORDS SUMMARY | 2023-04-05 18:51 | XMS_ITS ---
Author Name Anatoliy Escobar Address [address] [place] [address] Organization [facility] Address [address] [place] [address] Care Team Providers Care Reinforcer Name Role Phone Anatoliy Escobar [facility] [phone] PROBLEMS Type Condition ICD9-CM Code BQX03-WZ Code Onset Dates Condition Status SNOMED Code Problem Gastroesophageal reflux disease without esophagitis K21.9 Active 04985513 5 Problem Diverticulitis of large intestine without perforation or abscess without bleeding K57.32 Active 653653902 Problem Irritable bowel syndrome with diarrhea K58.0 Active 997541929 Problem Irritable bowel syndrome without diarrhea K58.9 Active 68496045 Problem Abnormal CT scan, sigmoid colon R93.3 Active Problem Diverticulosis K57.90 Active 724853243 Problem Hiatal hernia K44.9 Active 68891678 Problem History of adenomatous polyp of colon Z86.010 Active 281143189 Problem Irritable bowel syndrome with constipation K58.1 Active 190504173 Problem Gastroesophageal reflux disease, unspecified whether esophagitis present K21.9 Active Problem Irritable bowel syndrome with both constipation and diarrhea K58.2 Active 18287063 Problem GERD (gastroesophageal reflux disease) K21.9 Active Problem Rectal bleeding K62.5 Active 81575271 Problem LLQ abdominal pain R10.32 Active 55843 6002 Problem Heme + stool R19.5 Active 632362317 ALLERGIES Substance Reaction Event Type Date Status garlic Unknown Non Drug Allergy Dec, Active Flagyl Unknown Drug Allergy Dec, Active Augmentin Unknown Drug Allergy Dec, Active Sulfa Unknown Drug Allergy Dec, Active ENCOUNTERS Encounter Location Date Diagnosis [facility] [address] [place] [address] 23 Feb, 2023 [facility] [address] [place] [address] 19 Feb, 2023 [facility] [address] [place] [address] 16 Feb, 2023 [facility] [address] [place] [address] January, [facility] [address] [place] January, [facility] [address] [place] January, [facility] [address] [place] [address] 24 Dec, 2022 [facility] [address] [place] [address] 18 Dec, 2022 [facility] [address] [place] 11 Dec, 2022 [facility] [address] [place] [address] 10 Dec, 2022 [facility] [address] [place] [address] 05 Dec, 2022 Heme + stool R19.5 ; LLQ abdominal pain R10.32 ; Gastroesophageal reflux disease, unspecified whether esophagitis present K21.9 ; History of adenomatous polyp of colon Z86.010 and Irritable bowel syndrome with constipation K58.1 [facility] [address] [place] [address] Nov, [facility] [address] [place] [address] Nov, [facility] [address] [place] [address] Oct, [facility] [address] [place] [address] Sep, [facility] [address] [place] [address] Sep, [facility] [address] [place] [address] 17 Sep, 2022 [facility] [address] [place] 27 Aug, 2022 [facility] [address] [place] 13 Aug, 2022 [facility] [address] [place] Aug, [facility] [address] [place] 28 Jul, 2022 [facility] [address] [place] Jul, [facility] [address] [place] Jun, [facility] [address] [place] [address] 29 May, 2022 [facility] [address] [place] Mar, [facility] [address] [place] Feb, [facility] [address] [place] Feb, [facility] [address] [place] Dec, Gastroesophageal reflux disease without esophagitis K21.9 and Irritable bowel syndrome with both constipation and diarrhea K58.2 [facility] [address] [place] 10 Oct, 2021 [facility] [address] [place] 07 Oct, 2021 [facility] [address] [place] Sep, [facility] [address] [place] 30 Sep, 2021 [facility] [address] [place] [address] Sep, [facility] [address] [place] 24 Sep, 2021 Rectal bleeding K62.5 [facility] [address] [place] [address] Jul, [facility] [address] [place] 22 Jun, 2021 [facility] [address] [place] [address] 19 Jun, 2021 [facility] [address] [place] 18 Jun, 2021 [facility] [address] [place] [address] 15 Jun, 2021 [facility] [address] [place] Jun, [facility] [address] [place] [address] 23 Apr, 2021 [facility] [address] [place] [address] Apr, Irritable bowel syndrome with both constipation and diarrhea K58.2 ; GERD (gastroesophageal reflux disease) K21.9 and Hiatal hernia K44.9 [facility] [address] [place] [address] Mar, [facility] [address] [place] [address] 24 Feb, 2021 [facility] [address] [place] [address] 24 Feb, 2021 [facility] [address] [place] 15 Feb, 2021 [facility] [address] [place] [address] 15 Feb, 2021 [facility] [address] [place] [address] 11 Feb, 2021 [facility] [address] [place] [address] 28 Dec, 2020 [facility] [address] [place] [address] 22 Jun, 2020 [facility] [address] [place] 14 Jun, 2020 [facility] [address] [place] Jun, [facility] [address] [place] Feb, [facility] [address] [place] Feb, [facility] [address] [place] Feb, [facility] [address] [place] January, [facility] [address] [place] [address] Oct, [facility] [address] [place] Sep, Irritable bowel syndrome with both constipation and diarrhea K58.2 ; GERD (gastroesophageal reflux disease) K21.9 and Hiatal hernia K44.9 [facility] [address] [place] [address] Sep, [facility] [address] [place] [address] Sep, [facility] [address] [place] Sep, [facility] [address] [place] Sep, [facility] [address] [place] Sep, [facility] [address] [place] Aug, [facility] [address] [place] [address] Aug, [facility] [address] [place] Aug, [facility] [address] [place] [address] Jun, [facility] [address] [place] [address] Jun, [facility] Outpatient [address] [place] [phone] Jun, GERD (gastroesophageal reflux disease) K21.9 ; Hiatal hernia K44.9 ; Abnormal abdominal CT scan R93.5 and Colon polyp K63.5 [facility] [address] [place] [address] Jun, [facility] [address] [place] [address] May, [facility] [address] [place] [address] May, [facility] [address] [place] [address] Mar, [facility] [address] [place] [address] Feb, [facility] [address] [place] [address] January, [facility] [address] [place] [address] Dec, [facility] [address] [place] [address] Dec, Irritable bowel syndrome with constipation K58.1 ; Abnormal CT scan, sigmoid colon R93.3 ; Diverticulosis K57.90 and Gastroesophageal reflux disease without esophagitis K21.9 [facility] [address] [place] [address] Dec, [facility] [address] [place] [address] Dec, [facility] [address] [place] [address] Dec, [facility] [address] [place] [address] Mar, [facility] [address] [place] [address] Oct, Irritable bowel syndrome with both constipation and diarrhea K58.2 [facility] [address] [place] [address] Oct, [facility] [address] [place] [address] May, [facility] [address] [place] [address] Apr, [facility] [address] [facility] [place] [address] Mar, [facility] [address] [place] [address] [place] Mar, [facility] [address] [place] [address] [place] [address] Feb, Irritable bowel syndrome with diarrhea K58.0 [facility] [address] [place] [address] [place] [address] Feb, [facility] [address] [place] [address] [place] [address] Sep, [facility] [address] [place] [address] Aug, Irritable bowel syndrome without diarrhea K58.9 ; Gastroesophageal reflux disease without esophagitis K21.9 and Diverticulitis of large intestine without perforation or abscess without bleeding K57.32 [facility] [address] [place] [address] May, [facility] [address] [place] [address] Apr, [facility] [address] [place] [address] Feb, [facility] [address] [place] [address] Feb, Irritable bowel syndrome 564.1 ; Hypertension 401.9 ; Change in bowel habits 787.99 and Diverticulitis of colon 562.11 [facility] [address] [place] [address] Aug, [facility] Outpatient [address] [place] [id number] Sep, [facility] [address] [place] [address] Sep, [facility] [address] [place] [address] Jul, [facility] [address] [place] [address] Jul, Abdominal pain, epigastric 789.06 ; Colon cancer screening V76.51 and History of adenomatous polyp of colon V12.72 [facility] Outpatient [address] [id number] 04 Jun, 2007 [facility] ER [address], [place] [phone] Nov, [facility] ER [address], [place] [id number] 08 Dec, 2003 IMMUNIZATIONS Vaccine Route Administration [...] terrible gas, refill request/omeprazole, RE: 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
--- OUTSIDE RECORDS SUMMARY | 2023-04-05 18:51 | XMS_ITS | Patient Health Record ---
Author Name Unknown [facility] Address [address] [place] [address] Care Team Providers Care Office 365 Consultant Name Role Phone Nick Gomez Primary Care Provider Unavailab Kwadwo Braswell Unavailable [phone] Josh Blanc Unavailable [phone] Julieth Rosa Unavailable [phone] ALLERGIES Allergen (clinical drug ingredient) Drug/Non Drug [...] confirmed Acquired hammer toe of left foot (1558488499696459 ) Problem Atherosclerosis of [place] artery of both lower extremities, with unspecified presence of clinical manifestation (I70.203) Active confirmed Atherosclerosis of [place] arteries of the extremities (323460217589977) Problem Arthritis of joint of lesser toe, left (M19.072) Active confirmed Localized, primary osteoarthritis of the ankle and/or foot (038049131) VITAL SIGNS Height 5 ft 8 in in 02/10/2023 Weight 173 lbs 02/10/2023 BMI 26.3 kg/m2 02/10/2023 Encounters Encounter Location Date Provider Diagnosis [address] [address] 04/05/2022 [facility] [address] 04/05/2022 [facility] [address] 06/23/2022 [facility] [address] 06/24/2022 Julieth [facility] [address] 08/19/2022 Kwadwo Hendricks [address] [address] 08/19/2022 Kwadwo Schultzier [facility] [address] 09/20/2022 Kwadwoedmundo Hendricks [facility] [address] 09/20/2022 Kwadwo Hendricks [address] [address] 09/20/2022 Kwadwoedmundo Hendricks Atherosclerosis of [place] artery of both lower extremities, with unspecified presence of clinical manifestation I70.203 ; Ingrowing nail L60.0 ; Tinea unguium B35.1 ; Pain in right toe(s) M79.674 and Pain in left toe(s) M79.[address] [address] 11/22/2022 [facility] Ruthie [address] [address] 11/25/2022 Kwadwo Hendricks 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 ; Pain in left toe(s) M79.675 ; Other hammer toe(s) (acquired), left foot M20.42 and Arthritis of joint of lesser toe, left M19.[address] [address] 11/29/2022 Julieth Rosa [address] [address] 12/23/2022 Kwadwo Ruthie [address] [address] 01/06/2023 Kwadwoedmundo Hendricks Atherosclerosis of [place] artery of both lower extremities, with unspecified presence of clinical manifestation I70.203 ; Tinea unguium B35.1 ; Pain in right toe(s) M79.674 and Pain in left toe(s) M79.[address] [address] 01/06/2023 Kwadwo Ruthie [address] [address] 01/24/2023 Kwadwo Hendricks [facility] [address] [address] 01/25/2023 Josh Blanc [facility] [address] 02/10/2023 Kwadwo Hendricks Skin ulcer of toe of left foot, limited to breakdown of skin L97.521 ; Pain in left toe(s) M79.675 ; Other hammer toe(s) (acquired), left foot M20.42 ; Arthritis of joint of lesser toe, left M19.072 and Other subluxation of left foot, initial encounter S93.332A [address] [address] 02/10/2023 [facility] Ruthie [address] [address] 04/03/2023 Kwadwo Hendricks ASSESSMENTS Encounter Date Diagnosis Assessment Notes Treatment Notes Treatment Clinical Notes 09/20/2022 Ingrowing nail (ICD- 10 - L60.0) 09/20/2022 Atherosclerosis of [place] artery of both lower extremities, with unspecified presence of clinical manifestation (ICD-10 - I70.203) 11/25/2022 Non-pressure chronic ulcer of other part of left foot limited to breakdown of skin (ICD-10 - L97.521) 11/25/2022 Pain in left toe(s) (ICD-10 - M79.675) 01/06/2023 Tinea unguium (ICD-1 0 - B35.1) 01/06/2023 Atherosclerosis of [place] artery of both lower extremities, with unspecified [...] Name Order Date *Uric Acid, Serum 11/27/2020 60330-UJDSTPK NAIL, 6 OR MORE 03/23/2021 98672-TWSTQRT NAIL, 6 OR MORE 11/23/2021 51047-ZMKOICM NAIL, 6 OR MORE 09/20/2022 16220-UJINHYT NAIL, 6 OR MORE 01/06/2023 68469-YEFKMCV NAIL, 6 OR MORE 12/02/2011 17481-CGHAEGH NAIL, 6 OR MORE 04/06/2012 00500-WZDVPPE NAIL, 6 OR MORE 07/10/2012 39537-XLBYAWC NAIL, 6 OR MORE 10/10/2014 72973-IPZGLKC NAIL, 6 OR MORE 03/24/2015 03518-YQIDCNH NAIL, 6 OR MORE 07/19/2016 69910-HYXKUWN NAIL, 6 OR MORE 01/10/2017 87802-RCBRKUL NAIL, 6 OR MORE 08/25/2017 78266-QLBXCEF NAIL, 6 OR MORE 02/02/2018 54989-AYVEMCD NAIL, 6 OR MORE 11/24/2017 56202-VCLIPKV NAIL, 6 OR MORE 08/07/2018 45179-QIZLULS NAIL, 6 OR MORE 04/16/2019 28075-KUUPWNG NAIL, 6 OR MORE 03/20/2020 29499-EVDYMTX NAIL, 6 OR MORE 09/08/2020 60235-JAAEGKI NAIL, 6 OR MORE 06/12/2020 21297-Kficexxs Plate 06/12/2020 70362-Triulfxb Plate 09/08/2020 81206-Hbzahnzy Plate 03/20/2020 50425-Mfesdize Plate 04/16/2019 99044-Rohhqbfx Plate 09/20/2022 40108-Cxrlfors Plate 11/23/2021 37411-Kyvmfmda Plate 03/23/2021 92184-Sdidgetn Plate Each Additional 88771-Ajmidquc Plate Each Additional 22140- Debride <25 sq cm 12/31/2021 02449- Debride <25 sq cm 11/25/2022 45488- Debride <25 sq cm 02/10/2023 71675- Debride <25 sq cm 03/24/2015 25693-BUYB SKIN LESIONS, OVER 4 01/07/20 23 84095-RKPT SKIN LESIONS, OVER 4 09/20/19 23 57273-KIHM SKIN LESIONS, 2 TO 4 11/24/19 22 52875, Q0118-EAFYZ/INJECT, JOINT/BURSA 0 09/08/2020 10824 - Tenotomy, open flexor 12/01/2017 Insurance Providers Payer Name Payer Address Payer Phone Subscriber Number Group Number Insured Name Patient Relationship to Insured Coverage Start Date Coverage End Date Medicare [employer] [address] [place] [address] [id number] Jessica Henleye Self - patient is the insured [facility] [address] [place] [address] [phone] [id number], [place] Self - patient is the insured MEDICAL (GENERAL) HISTORY Medical History History ICD Code back, hip, knee pain transfusions reflux measles chicken pox Anxiety disorder Peripheral neuropathy Surgical History Surgery Date(Month/Year) tonsillectomy appendectomy intestinal blockage 11/2013 Hospitalization History Reason Date(Month/Year) [facility]- stomach pains - Gerd /IBS due to anxiety 01/2021,02/2021 Patient admitted to [facility] x 5 days; diverticulitis 12/2014
== END 2023-04-05 21:20 | disposition home or self-care (01) ==
PROVIDERS: Emergency Provider Emergency Medicine Emergency Medical Services; PCP Physician Assistant
DX: S90.32XA Contusion of left foot, initial encounter (principal); S09.90XA Unspecified injury of head, initial encounter; M25.551 Pain in right hip; R51.9 Headache, unspecified; R20.0 Anesthesia of skin; R10.2 Pelvic and perineal pain; M79.671 Pain in right foot; I10 Essential (primary) hypertension; W19.XXXA Unspecified fall, initial encounter; Y93.9 Activity, unspecified; Y92.810 Car as the place of occurrence of the external cause; Y99.9 Unspecified external cause status; Z87.891 Personal history of nicotine dependence; Z79.899 Other long term (current) drug therapy
CPT/HCPCS: 27093; 70450; 72125; 73502; 73525; 73630; 99284

== ENCOUNTER 2023-04-17 11:14 | Outpatient (AMB) | payer MEDICARE, OTHER, SELFPAY ==
[2023-04-17 11:15] VITALS: BP 112/70; PULSE 94; O2SAT 96; BMI 26.4
--- NOTE | 2023-04-17 11:15 | A.OFFPC_ITS ---
Vital Signs 04/17/23 11:15 Height 5 ft 6 in Weight 163 lb 8 oz BMI 26.4 BP 112/70 Blood Pressure Location Lt brachial Position Sitting Pulse 94 Pulse Source Pulse Oximeter Pulse Oximetry (%) 96 Oxygen Delivery Method Room Air Intake Visit Reasons: ER f/u 04/05/23 Allergies buspirone Allergy (Intermediate, Verified 04/17/23 11:49) Rash Sulfa (Sulfonamide Antibiotics) Allergy (Intermediate, Verified 04/17/23 11:49) RASH amoxicillin [From AUGMENTIN] Allergy (Unknown, Verified 04/17/23 11:49) PER H&P clavulanic acid [From AUGMENTIN] Allergy (Unknown, Verified 04/17/23 11:49) PER H&P garlic [GARLIC] Allergy (Unknown, Verified 04/17/23 11:49) PER H&P metronidazole [From FLAGYL] Allergy (Unknown, Verified 04/17/23 11:49) OCULAR MIGRAINES penicillamine Allergy (Unknown, Verified 04/17/23 11:49) Unknown ciprofloxacin Adverse Reaction (Intermediate, Verified 04/17/23 11:49) neuropathic pain lisinopril Adverse Reaction (Intermediate, Verified 04/17/23 11:49) Cough nitrofurantoin Adverse Reaction (Mild, Verified 04/17/23 11:49) GI side effects environmental Allergy (Unknown, Uncoded 04/17/23 11:20) Unknown flagyl Allergy (Unknown, Uncoded 04/17/23 11:20) Unknown From KEFLEX Allergy (Unknown, Uncoded 04/17/23 11:20) RASH Metoprolol Tartrate Allergy (Unknown, Uncoded 04/17/23 11:20) Unknown Sulfacet-R Allergy (Unknown, Uncoded 04/17/23 11:20) Unknown Medication List - Last Reconciled 04/17/23 by Nick Gomez PA-C acetaminophen 1,000 mg PO Q6H PRN alprazolam 0.25 mg PO BID PRN celecoxib 200 mg PO BID cholecalciferol (vitamin D3) 50 mcg PO DAILY citalopram 10 mg PO BEDTIME cyanocobalamin (vitamin B-12) (Vitamin B-12) 1,000 mcg PO DAILY docusate sodium 100 mg PO BID fexofenadine 180 mg PO DAILY PRN fluticasone propionate 50 mcg/actuation 2 sprays intranasal DAILY losartan 25 mg PO DAILY melatonin 3 mg PO BEDTIME ondansetron HCl 4 mg PO Q8H PRN pantoprazole 40 mg PO DAILY@0630 polyethylene glycol 3350 17 grams PO DAILY PRN Tobacco use date assessed: 03/31/23 HPI ER f/u 04/05/23 HPI Details Patient is an 82-year-old female here today for an ER follow-up visit. Patient's past medical history significant for severe generalized anxiety disorder, GERD, nonrheumatic aortic stenosis, hypertension. Unfortunately recently suffered a fall and a pelvic fracture. She was seen at the ER for again another fall while trying to get into a car. She reports the day of the fall she did get an injection in her right hip that causes her right lower extremity to be numb which eventually caused the fall. She reports a minor head injury. Continues to have a mild headache to which she is taking Tylenol for. [facility] Medical History Anxiety Arthritis Diverticulitis GERD (gastroesophageal reflux disease) Heart murmur HTN (hypertension) Irritable bowel Neuropathy Surgical History History of appendectomy History of tonsillectomy Hx of colonoscopy Hx of esophagogastroduodenoscopy Family History Father No problems noted. Mother No problems noted. Social History Household Members: Children Housing: House Are you a primary health care aide to a significant other at home: No Do you presently have visiting nurse or other home services: No Alcohol intake: never Patient Tobacco Use Status: Former Tobacco user Quit Date: 2013 e-Cigarette/Vaping Use: Never Used Second Hand Smoke Exposure: No Advance Directives Date on File: 11/21/22 service: No Current occupational status: retired Cognitive needs: No Hearing needs: No Vision needs: Yes (glasses) Questionnaire PHQ-9 Over the last 2 weeks, how often have you been bothered by any of the following problems? 1. Little interest or pleasure in doing things: several days 2. Feeling down, depressed, or hopeless: nearly every day 3. Trouble falling or staying asleep, or sleeping too much: not at all 4. Feeling tired or having little energy: several days 5. Poor appetite or overeating: several days 6. Feeling bad about yourself - or that you are a failure or have let yourself or your family down: not at all 7. Trouble concentrating on things, such as reading the newspaper or watching television: not at all 8. Moving or speaking so slowly that other people could have noticed. Or the opposite - being so fidgety or restless that you have been moving around a lot more than usual: not at all 9. Thoughts that you would be better off or of hurting yourself in some way: not at all Total score: 6 Depression Screening Interpretation: Positive 99170 - PHQ-9 Billing: Yes Source: Developed by Drs. Anatoliy Gavin, Peyton Hunt, Austyn Weber and colleagues, with an educational kentrell from [employer]. Thrive Questionnaire Date Thrive assessed: 01/23/23 I am a: Patient What is your living situation today?: I have a steady place to live Within the past 12 months, did the food you bought not last and you didn't have the money to get more?: Never true Within the past 12 months, did you worry whether your food would run out before you got money to buy more?: Never true Do you have trouble paying for medicines?: No Do you have trouble getting transportation to medical appointments?: No Do you have trouble paying your heating and electricity bill?: No Do you have trouble taking care of your child, family member or friend?: No Do you have trouble with day-to-day activities such as bathing, preparing meals, shopping, managing finances, etc.?: No Are you currently unemployed and looking for a job?: No Are you interested in more education?: No Currently or been in a relationship where the following occur: no concerns reported AUDIT C Alcohol Use Questionnaire (AUDIT-C) 1. How often do you have a drink containing alcohol?: Never 3. How often do you have six or more drinks on one occasion?: Never Total Score: 0 PAIGE-7 AMB Questionnaire PAIGE-7 Date PAIGE - 7 assessed: 10/06/22 Feeling nervous, anxious, or on edge: 2 = More than half the days Not being able to stop or control worryin = Several days Worrying too much about different things: 1 = Several days Trouble relaxin = Several days Being so restless that it is hard to sit still: 1 = Several days Becoming easily annoyed or irritable: 1 = Several days Feeling afraid as if something awful might happen: 1 = Several days Total PAIGE-7 score (0-4 normal; 5-9 mild; 10-14 moderate; 15-21 severe): 8 Source: Developed by Drs. Anatoliy Gavin, Peyton Hunt, Austyn Weber and colleagues, with an educational kentrell from [employer]. Physical exam (Primary Care) Vital Signs: Last Vital Signs Pulse 94 04/17/23 11:15 BP 112/70 04/17/23 11:15 Pulse Ox 96 04/17/23 11:15 Oxygen Delivery Method Room Air 04/17/23 11:15 BMI result Body Mass Index 26.4 Tobacco/Smoking Status: Tobacco use Status Tobacco use date assessed 03/31/23 04/17/23 11:22 Patient Tobacco Use Status Former Tobacco user 04/17/23 11:22 e-Cigarette/Vaping Use Never Used 04/17/23 11:22 PHQ-9: PHQ-9 Score PHQ-9: Total score 6 04/17/23 11:23 Depression Screening Interpretation: Positive Thrive Assessment: Date of Thrive Assessment Date Thrive assessed 01/23/23 04/17/23 11:22 Currently or been in a relationship where the following occur: no concerns reported Assessment and Plan Assessment & Plan (1) Fall: Code(s): W19.XXXA - Unspecified fall, initial encounter Qualifiers: Encounter type: subsequent encounter Qualified Code(s): W19.XXXD - Unspecified fall, subsequent encounter Plan: Patient is status post fall Did report hitting head though no loss of consciousness. CT head and neck without any (2) Cerebral ventriculomegaly: Code(s): G93.89 - Other specified disorders of brain Plan: Patient continues to be concerned about the ventromegaly that has been co nsistently shown and head CTs. She does not exactly have symptoms of normal pressure hydrocephalus though does advancing memory (likely age related), some balance discrepancies likely due to aging and arthritis in hips and knees. No urinary incontinence. She does have a neurologist. She like to speak with a neurosurgeon about the pathophysiology and possible treatment for normal pressure hydrocephalus (3) Pubic ramus fracture: Code(s): S32.599A - Other specified fracture of unspecified pubis, initial encounter for closed fracture Qualifiers: Encounter type: sequela Fracture type: closed Laterality: right Qualified Code(s): S32.591S - Other specified fracture of right pubis, sequela Plan: Status post pelvic ramus fracture. Now in physical therapy at home, continues to ambulate with Orders: Referrals Neurosurgery Referral G93.89 - Other specified disorders of brain Medications: Discontinued fluticasone propionate 50 mcg/actuation administer into each nostril 1 spray intranasal DAILY 30 days 16 grams 3RF J30.9 - Allergic rhinitis, unspecified Coding Level of Care Code Est Pt Level 3 (06630) Diagnoses Fall W19.XXXD Encounter type: subsequent encounter Cerebral ventriculomegaly G93.89 Pubic ramus fracture S32.591S Encounter type: sequela Fracture type: closed Laterality: right
== END 2023-04-17 12:04 | disposition home or self-care (01) ==
PROVIDERS: PCP Physician Assistant; Visit Provider Physician Assistant
DX: S32.591S Other specified fracture of right pubis, sequela (principal); W19.XXXD Unspecified fall, subsequent encounter; G93.89 Other specified disorders of brain
CPT/HCPCS: 99213

== ENCOUNTER 2023-04-21 13:08 | Outpatient (AMB) | payer MEDICARE, OTHER, SELFPAY ==
[2023-04-21 13:09] VITALS: BP 114/76; PULSE 93; TEMP 36.7; O2SAT 96; BMI 26.2
--- NOTE | 2023-04-21 13:09 | MHC.OFFWIV ---
Intake Vital Signs 04/21/23 13:09 Height 5 ft 6 in Weight 162 lb 8 oz BMI 26.2 BP 114/76 Blood Pressure Location Lt brachial Position Sitting Pulse 93 Pulse Source Pulse Oximeter Temp 98.1 F Temp Source Temporal Artery Scan Pulse Oximetry (%) 96 Oxygen Delivery Method Room Air Intake Visit Reasons: EST/dry mough throat burning(gerd?) Intake Note: Pt is here c/o nauseousness, light headed and throat pain for the past 24 hours. Patient Tobacco Use Status: Former Tobacco user Quit Date: 2013 Allergies buspirone Allergy (Intermediate, Verified 04/21/23 13:18) Rash Sulfa (Sulfonamide Antibiotics) Allergy (Intermediate, Verified 04/21/23 13:18) RASH amoxicillin [From AUGMENTIN] Allergy (Unknown, Verified 04/21/23 13:18) PER H&P clavulanic acid [From AUGMENTIN] Allergy (Unknown, Verified 04/21/23 13:18) PER H&P garlic [GARLIC] Allergy (Unknown, Verified 04/21/23 13:18) PER H&P metronidazole [From FLAGYL] Allergy (Unknown, Verified 04/21/23 13:18) OCULAR MIGRAINES penicillamine Allergy (Unknown, Verified 04/21/23 13:18) Unknown ciprofloxacin Adverse Reaction (Intermediate, Verified 04/21/23 13:18) neuropathic pain lisinopril Adverse Reaction (Intermediate, Verified 04/21/23 13:18) Cough nitrofurantoin Adverse Reaction (Mild, Verified 04/21/23 13:18) GI side effects environmental Allergy (Unknown, Uncoded 04/21/23 13:18) Unknown flagyl Allergy (Unknown, Uncoded 04/21/23 13:18) Unknown From KEFLEX Allergy (Unknown, Uncoded 04/21/23 13:18) RASH Metoprolol Tartrate Allergy (Unknown, Uncoded 04/21/23 13:18) Unknown Sulfacet-R Allergy (Unknown, Uncoded 04/21/23 13:18) Unknown HPI HPI Comments History of Present Illness Details This is a 82-year-old female who presents to the office today for sick visit. Patient complaining of epigastric/throat burning, dry mouth, and mild nausea without vomiting x 1 week. Patient reports a history of GERD and states that the symptoms feel similar. She does report eating shortly prior to laying down in bed. Patient reports being on pantoprazole 40 mg daily but she was told to increase to twice daily if her symptoms worsen. She denies any shortness of breath. She denies any fevers or chills. Patient is otherwise feeling well. [facility] Medical History Anxiety Arthritis Diverticulitis GERD (gastroesophageal reflux disease) Heart murmur HTN (hypertension) Irritable bowel Neuropathy Surgical History History of appendectomy History of tonsillectomy Hx of colonoscopy Hx of esophagogastroduodenoscopy Family History Father No problems noted. Mother No problems noted. Social History Household Members: Children Housing: House Are you a primary medicare coordinator to a significant other at home: No Do you presently have visiting nurse or other home services: No Alcohol intake: never Patient Tobacco Use Status: Former Tobacco user Quit Date: 2013 e-Cigarette/Vaping Use: Never Used Second Hand Smoke Exposure: No Advance Directives Date on File: 11/21/22 service: No Current occupational status: retired Cognitive needs: No Hearing needs: No Vision needs: Yes (glasses) Review of Systems Const All systems reviewed & are unremarkable except as noted in HPI and below Reports no additional complaints Eyes Reports no additional complaints ENT Reports no additional complaints and Reports sore throat (burning) Card Reports no additional complaints Resp Reports no additional complaints GI Reports no additional complaints, Reports dyspepsia and Reports heartburn Reports no additional complaints Musc Reports no additional complaints Skin/Breast Reports system reviewed and no additional complaints, except as documented Neuro Reports no additional complaints Psych Reports no additional complaints Endo Reports no additional complaints Pradip/Lymph Reports no additional complaints Aller/Immun Reports no additional complaints Physical Exam Vital Signs: Last Vital Signs Temp 98.1 F 04/21/23 13:09 Pulse 93 04/21/23 13:09 BP 114/76 04/21/23 13:09 Pulse Ox 96 04/21/23 13:09 Oxygen Delivery Method Room Air 04/21/23 13:09 BMI result Body Mass Index 26.2 Const General: cooperative, healthy appearing, no acute distress and well developed Orientation/consciousness: patient oriented x3 HEENT Head: Yes normal to inspection Ears: hearing grossly normal bilaterally General nose exam: Normal external nose present Face and sinus: Yes normal facial exam Mouth: Normal oral and palatal mucosa present Eyes General: appearance normal, both eyes and all related structures Pupils: Equal, round and reactive pupils present EOM: EOMs intact bilaterally Resp Effort & Inspection: normal respiratory effort and no respiratory distress Auscultation: clear to auscultation bilaterally Cardio Rate: regular rate Rhythm: regular rhythm Heart sounds: no gallops, no murmurs and no rubs Peripheral pulses: Peripheral pulses 2+ throughout GI Inspection: No distended Palpation (GI): Soft to palpation and nontender Auscultation: normal bowel sounds Skin General skin exam: no rashes or lesions noted Neuro General: patient oriented x3 Cranial nerves: Yes CN's II-XII intact bilaterally and Yes Equal, round and reactive pupils present Gait exam (Neuro): Normal gait present Motor exam (neuro): 5/5 motor strength present throughout Extrem General: Yes normal to inspection, Yes full ROM and Yes no clubbing, cyanosis or edema Psych Appearance: grossly normal Mental Status: mental status grossly normal Office Procedures EKG Details: Normal sinus rhythm with age-indeterminate inferior infarct. [id number], Complete Assessment & Plan Assessment & Plan (1) GERD (gastroesophageal reflux disease): Code(s): K21.9 - Gastro-esophageal reflux disease without esophagitis Qualifiers: Esophagitis presence: without esophagitis Qualified Code(s): K21.9 - Gastro-esophageal reflux disease without esophagitis Plan This is an 82-year-old female with past medical history significant for GERD who presents to the office today in the setting of throat/epigastric burning. Her physical exam is benign without abdominal tenderness to palpation or peritoneal signs. Patient's history and physical are most consistent with gastroesophageal reflux disease. She has no posterior oropharyngeal erythema, edema, or exudate. EKG was obtained given complaint of epigastric burning and showed normal sinus rhythm with an Q-waves inferiorly (unchanged from prior EKGs). Patient recently underwent endoscopic intervention without concerning findings. Patient encouraged to practice symptomatic management including sitting upright 30 minutes after eating and avoiding acidic foods. Patient was instructed to increase pantoprazole to 40 mg twice daily x1 week. She was also given a prescription for Maalox every 6 hours as needed for dyspepsia. Patient was encouraged to follow-up with her primary care physician or GI if symptoms persist/worsen for further evaluation/management. Patient was advised to follow-up here go to the emergency room if she were to develop fever/chills, nausea/vomiting, or worsening abdominal pain. Orders: Orders AMB EKG-In Office Today R10.13 - Epigastric pain Medications: New pantoprazole 40 mg PO BID 14 tabs 0RF alum-mag hydroxide-simeth 200-200-20 mg/5 mL (Maalox Advanced) 5 mL PO Q6H PRN 355 mL 0RF dyspepsia Discontinued fluticasone propionate 50 mcg/actuation administer into each nostril 1 spray intranasal DAILY 30 days 16 grams 3RF J30.9 - Allergic rhinitis, unspecified Coding Level of Care Code Est Pt Level 3 (73798) Diagnoses GERD (gastroesophageal reflux disease) K21.9 Esophagitis presence: without esophagitis CPT Codes EKG - CPT: 54281-[id number], Complete ([id number])
--- OUTSIDE RECORDS SUMMARY | 2023-04-21 13:10 | XMS_ITS ---
Author Name Anatoliy Escobar Address [address] [place] [address] Organization [facility] Address [address] [place] [address] Care Team Providers Care Broadcast Meteorologist Name Role Phone Anatoliy Escobar [facility] [phone] PROBLEMS Type Condition ICD9-CM Code YLP26-RE Code Onset Dates Condition Status SNOMED Code Problem Gastroesophageal reflux disease without esophagitis K21.9 Active 22144355 5 Problem Diverticulitis of large intestine without perforation or abscess without bleeding K57.32 Active 895161993 Problem Irritable bowel syndrome with diarrhea K58.0 Active 324346361 Problem Irritable bowel syndrome without diarrhea K58.9 Active 77835191 Problem Abnormal CT scan, sigmoid colon R93.3 Active Problem Diverticulosis K57.90 Active 638709160 Problem Hiatal hernia K44.9 Active 73757829 Problem History of adenomatous polyp of colon Z86.010 Active 531108621 Problem Irritable bowel syndrome with constipation K58.1 Active 253105498 Problem Gastroesophageal reflux disease, unspecified whether esophagitis present K21.9 Active Problem Irritable bowel syndrome with both constipation and diarrhea K58.2 Active 34794255 Problem GERD (gastroesophageal reflux disease) K21.9 Active Problem Rectal bleeding K62.5 Active 07163735 Problem LLQ abdominal pain R10.32 Active 60165 6002 Problem Heme + stool R19.5 Active [id number] ALLERGIES Substance Reaction Event Type Date Status garlic Unknown Non Drug Allergy Dec, Active Flagyl Unknown Drug Allergy Dec, Active Augmentin Unknown Drug Allergy Dec, Active Sulfa Unknown Drug Allergy Dec, Active ENCOUNTERS Encounter Location Date Diagnosis [facility] [address] [place] [address] 23 Feb, 2023 [facility] [address] [place] [address] 19 Feb, 2023 [facility] [address] [place] [address] 16 Feb, 2023 [facility] [address] [place] [address] January, [facility] [address] [place] January, [facility] [address] [place] January, [facility] [address] [place] [address] 24 Dec, 2022 [facility] [address] [place] [address] 18 Dec, 2022 [facility] [address] [place] 11 Dec, 2022 [facility] [address] [place] [address] 10 Dec, 2022 [facility] [address] [place] [address] 05 Dec, 2022 Heme + stool R19.5 ; LLQ abdominal pain R10.32 ; Gastroesophageal reflux disease, unspecified whether esophagitis present K21.9 ; History of adenomatous polyp of colon Z86.010 and Irritable bowel syndrome with constipation K58.1 [facility] [address] [place] [address] Nov, [facility] [address] [place] [address] Nov, [facility] [address] [place] [address] Oct, [facility] [address] [place] [address] Sep, [facility] [address] [place] [address] Sep, [facility] [address] [place] [address] 17 Sep, 2022 [facility] [address] [place] 27 Aug, 2022 [facility] [address] [place] 13 Aug, 2022 [facility] [address] [place] Aug, [facility] [address] [place] 28 Jul, 2022 [facility] [address] [place] Jul, [facility] [address] [place] Jun, [facility] [address] [place] [address] 29 May, 2022 [facility] [address] [place] Mar, [facility] [address] [place] Feb, [facility] [address] [place] Feb, [facility] [address] [place] Dec, Gastroesophageal reflux disease without esophagitis K21.9 and Irritable bowel syndrome with both constipation and diarrhea K58.2 [facility] [address] [place] 10 Oct, 2021 [facility] [address] [place] 07 Oct, 2021 [facility] [address] [place] Sep, [facility] [address] [place] 30 Sep, 2021 [facility] [address] [place] [address] Sep, [facility] [address] [place] 24 Sep, 2021 Rectal bleeding K62.5 [facility] [address] [place] [address] Jul, [facility] [address] [place] 22 Jun, 2021 [facility] [address] [place] [address] 19 Jun, 2021 [facility] [address] [place] 18 Jun, 2021 [facility] [address] [place] [address] 15 Jun, 2021 [facility] [address] [place] Jun, [facility] [address] [place] [address] 23 Apr, 2021 [facility] [address] [place] [address] Apr, Irritable bowel syndrome with both constipation and diarrhea K58.2 ; GERD (gastroesophageal reflux disease) K21.9 and Hiatal hernia K44.9 [facility] [address] [place] [address] Mar, [facility] [address] [place] [address] 24 Feb, 2021 [facility] [address] [place] [address] 24 Feb, 2021 [facility] [address] [place] 15 Feb, 2021 [facility] [address] [place] [address] 15 Feb, 2021 [facility] [address] [place] [address] 11 Feb, 2021 [facility] [address] [place] [address] 28 Dec, 2020 [facility] [address] [place] [address] 22 Jun, 2020 [facility] [address] [place] 14 Jun, 2020 [facility] [address] [place] Jun, [facility] [address] [place] Feb[place] [facility] [address] [place] Feb, [facility] [address] [place] Feb, [facility] [address] [place] January, [facility] [address] [place] [address] Oct, [facility] [address] [place] Sep, Irritable bowel syndrome with both constipation and diarrhea K58.2 ; GERD (gastroesophageal reflux disease) K21.9 and Hiatal hernia K44.9 [facility] [address] [place] [address] Sep, [facility] [address] [place] [address] Sep, [facility] [address] [place] Sep, [facility] [address] [place] Sep, [facility] [address] [place] Sep, [facility] [address] [place] Aug, [facility] [address] [place] [address] Aug, [facility] [address] [place] Aug, [facility] [address] [place] [address] Jun, [facility] [address] [place] [address] Jun, [facility] [address] [place] [id number] Jun, GERD (gastroesophageal reflux disease) K21.9 ; Hiatal hernia K44.9 ; Abnormal abdominal CT scan R93.5 and Colon polyp K63.5 [facility] [address] [place] [address] Jun, [facility] [address] [place] [address] May, [facility] [address] [place] [address] May, [facility] [address] [place] [address] Mar, [facility] [address] [place] [address] Feb, [facility] [address] [place] [address] January, [facility] [address] [place] [address] Dec, [facility] [address] [place] [address] Dec, Irritable bowel syndrome with constipation K58.1 ; Abnormal CT scan, sigmoid colon R93.3 ; Diverticulosis K57.90 and Gastroesophageal reflux disease without esophagitis K21.9 [facility] [address] [place] [address] Dec, [facility] [address] [place] [address] Dec, [facility] [address] [place] [address] Dec, [facility] [address] [place] [address] Mar, [facility] [address] [place] [address] Oct, Irritable bowel syndrome with both constipation and diarrhea K58.2 [facility] [address] [place] [address] Oct, [facility] [address] [place] [address] May, [facility] [address] [place] [address] Apr, [facility] [address] [facility] [place] [address] Mar, [facility] [address] [place] [address] [place] Mar, [facility] [address] [place] [address] [place] [address] Feb, Irritable bowel syndrome with diarrhea K58.0 [facility] [address] [place] [address] [place] [address] Feb, [facility] [address] [place] [address] [place] [address] Sep, [facility] [address] [place] [address] Aug, Irritable bowel syndrome without diarrhea K58.9 ; Gastroesophageal reflux disease without esophagitis K21.9 and Diverticulitis of large intestine without perforation or abscess without bleeding K57.32 [facility] [address] [place] [address] May, [facility] [address] [place] [address] Apr, [facility] [address] [place] [address] Feb, [facility] [address] [place] [address] Feb, Irritable bowel syndrome 564.1 ; Hypertension 401.9 ; Change in bowel habits 787.99 and Diverticulitis of colon 562.11 [facility] [address] [place] [address] Aug, [facility] [address] [place] [id number] Sep, [facility] [address] [place] [address] Sep, [facility] [address] [place] [address] Jul, [facility] [address] [place] [address] Jul, Abdominal pain, epigastric 789.06 ; Colon cancer screening V76.51 and History of adenomatous polyp of colon V12.72 [facility] [address] [place], [place] [id number] Jun, 2007 [facility] [address], [place] [id number] Nov, [facility] [address] [place], [place] [id number] 08 Dec, 2003 IMMUNIZATIONS Vaccine Route Administration [...] terrible gas, refill request/omeprazole, RE: 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
--- OUTSIDE RECORDS SUMMARY | 2023-04-21 13:10 | XMS_ITS | Patient Health Record ---
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, with unspecified presence of clinical manifestation (I70.203) Active confirmed Atherosclerosis of emmonak arteries of the extremities (552967434779574) Problem Arthritis of joint of lesser toe, left (M19.072) Active confirmed Localized, primary osteoarthritis of the ankle and/or foot (391931007) VITAL SIGNS Height 5 ft 8 in in 02/10/2023 Weight 173 lbs 02/10/2023 BMI 26.3 kg/m2 02/10/2023 Encounters Encounter Location Date Provider Diagnosis [address] [address] 06/23/2022 Kwadwo Hendricks [address] [address] 06/24/2022 Julieth Rosa [address] [address] 08/19/2022 Kwadwo Hendricks [address] [address] 08/19/2022 [facility] [address] [address] 09/20/2022 Kwadwo Hendricks [address] [address] 09/20/2022 Kwadwo Hendricks [facility] [address] 09/20/2022 Kwadwoedmundo Hendricks Atherosclerosis of emmonak artery of both lower extremities, with unspecified presence of clinical manifestation I70.203 ; Ingrowing nail L60.0 ; Tinea unguium B35.1 ; Pain in right toe(s) M79.674 and Pain in left toe(s) M79.[address] [facility] [address] 11/22/2022 Kwadwo Ruthie [facility] [address] 11/25/2022 Kwadwo Hendricks 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 ; Pain in left toe(s) M79.675 ; Other hammer toe(s) (acquired), left foot M20.42 and Arthritis of joint of lesser toe, left M19.[address] [address] 11/29/2022 Julieth Rosa [address] [address] 12/23/2022 Kwadwo Ruthie [address] [address] 01/06/2023 Kwadwo Hendricks Atherosclerosis of emmonak artery of both lower extremities, with unspecified presence of clinical manifestation I70.203 ; Tinea unguium B35.1 ; Pain in right toe(s) M79.674 and Pain in left toe(s) M79.[address] [address] 01/06/2023 [facility] [address] 01/24/2023 Kwadwo Ruthie [facility] [address] 01/25/2023 Josh Blanc [address] [address] 02/10/2023 Kwadwo Hendricks Skin ulcer of toe of left foot, limited to breakdown of skin L97.521 ; Pain in left toe(s) M79.675 ; Other hammer toe(s) (acquired), left foot M20.42 ; Arthritis of joint of lesser toe, left M19.072 and Other subluxation of left foot, initial encounter S93.332A [facility] [address] [address] 02/10/2023 Kwadwo Hendricks [facility] [address] 04/03/2023 Kwadwo Ruthie [facility] [address] [address] 04/11/2023 Kwadwo Hendricks ASSESSMENTS Encounter Date Diagnosis Assessment Notes Treatment Notes Treatment Clinical Notes 01/06/2023 Tinea unguium (ICD-1 0 - B35.1) 01/06/2023 Atherosclerosis of emmonak artery of both lower extremities, with unspecified presence of clinical manifestation (ICD-10 - I70.203) 02/10/2023 Pain in left toe(s) (ICD-10 - M79.675) 02/10/2023 Skin ulcer of toe of left foot, limited to breakdown of skin (ICD-10 - L97.521) Patient Educated with: WOUND CARE INSTRUCTIONS.pdf (WOUND CARE INSTRUCTIONS.pdf ) 11/25/2022 Non-pressure chronic ulcer of other part of left foot limited to breakdown of skin (ICD-10 - L97.521) 11/25/2022 Pain in left toe(s) (ICD-10 - M79.675) 09/20/2022 Ingrowing nail (ICD- 10 - L60.0) 09/20/2022 Atherosclerosis of emmonak artery of both lower extremities, with unspecified presence of clinical manifestation (ICD-10 - I70.203) 09/20/2022 Tinea unguium (ICD-1 0 - B35.1) 11/25/2022 Other hammer toe(s) (acquired), left foot (ICD-10 - M20.42) 01/06/2023 Pain in right toe(s) (ICD-10 - M79.674) 02/10/2023 Other hammer toe(s) (acquired), left foot (ICD-10 - M20.42) 01/06/2023 Pain in left toe(s) (ICD-10 - M79.675) 02/10/2023 Arthritis of joint o f lesser toe, left (ICD-10 - M19.072) 11/25/2022 Arthritis of joint o f lesser toe, left (ICD-10 - M19.072) 09/20/2022 Pain in right toe(s) (ICD-10 - M79.674) 09/20/2022 Pain in left toe(s) (ICD-10 - M79.675) 02/10/2023 Other subluxation of left foot, initial encounter (ICD-10 - S93.332A) 02/10/2023 Other PLAN OF TREATMENT Pending Test Test Name Order Date *Uric Acid, Serum 11/27/2020 48837-KXOFFDT NAIL, 6 OR MORE 03/23/2021 04454-TQWHDNT NAIL, 6 OR MORE 09/08/2020 31089-MMALAWH NAIL, 6 OR MORE 01/06/2023 04773-RTJXCAS NAIL, 6 OR MORE 04/06/2012 76732-CXSIIKM NAIL, 6 OR MORE 07/10/2012 41249-KKUFBTJ NAIL, 6 OR MORE 10/10/2014 66702-XVYGOCU NAIL, 6 OR MORE 01/10/2017 16033-HJCVXAG NAIL, 6 OR MORE 08/25/2017 46620-FWWCCSW NAIL, 6 OR MORE 11/24/2017 41957-QJUJSIF NAIL, 6 OR MORE 04/16/2019 44057-UCSBIKB NAIL, 6 OR MORE 03/20/2020 07010-NLNEWEW NAIL, 6 OR MORE 09/20/2022 91323-DSTGLKZ NAIL, 6 OR MORE 11/23/2021 01481-HTRSGTN NAIL, 6 OR MORE 08/07/2018 09455-OXSHZBW NAIL, 6 OR MORE 02/02/2018 90758-SSLHRXF NAIL, 6 OR MORE 07/19/2016 95929-ALLGVKU NAIL, 6 OR MORE 03/24/2015 41203-FENQPHJ NAIL, 6 OR MORE 06/12/2020 75556-QSDLDWN NAIL, 6 OR MORE 12/02/2011 62463-Dqtlogii Plate 06/12/2020 24864-Qefphjyg Plate 11/23/2021 61001-Rkzzbrvt Plate 09/20/2022 14953-Kmcgmnnf Plate 03/20/2020 37071-Ugwllmhj Plate 04/16/2019 97944-Ssfrloiy Plate 09/08/2020 76013-Estfothq Plate 03/23/2021 49741-Cqgwiupi Plate Each Additional 60761-Mialochy Plate Each Additional 64917- Debride <25 sq cm 02/10/2023 10649- Debride <25 sq cm 11/25/2022 89884- Debride <25 sq cm 03/24/2015 61613- Debride <25 sq cm 12/31/2021 68360-ACDW SKIN LESIONS, OVER 4 01/07/20 92100-DZFB SKIN LESIONS, OVER 4 09/20/19 23565-AABR SKIN LESIONS, 2 TO 4 11/24/19 93012, X0410-YJYNS/INJECT, JOINT/BURSA 0 09/08/2020 87858 - Tenotomy, open flexor 12/01/2017 Insurance Providers Payer Name Payer Address Payer Phone Subscriber Number Group Number Insured Name Patient Relationship to Insured Coverage Start Date Coverage End Date Medicare National [employer] [address] [facility] [place] [address] [phone] [id number] KaleJessica gaspare Self - patient is the insured [facility] [address] [place] [id number] Jess[address] Self - patient is the insured MEDICAL (GENERAL) HISTORY Medical History History ICD Code back, hip, knee pain transfusions reflux measles chicken pox Anxiety disorder Peripheral neuropathy Surgical History Surgery Date(Month/Year) tonsillectomy appendectomy intestinal blockage 11/2013 Hospitalization History Reason Date(Month/Year) [facility] [place] - Gerd /IBS due to anxiety 01/2021,02/2021 Patient admitted to [facility] 5 days; diverticulitis 12/2014
== END 2023-04-21 14:28 | disposition home or self-care (01) ==
PROVIDERS: PCP Physician Assistant; Visit Provider Physician Assistant Medical
DX: K21.9 Gastro-esophageal reflux disease without esophagitis (principal)
CPT/HCPCS: 93000; 99213

== ENCOUNTER 2023-04-26 09:28 | Outpatient (AMB) | payer MEDICARE, OTHER, SELFPAY ==
[2023-04-26 09:36] VITALS: BMI 26.5
--- NOTE | 2023-04-26 09:36 | MHC.AMNUTRGE ---
Intake VS Expanded 04/26/23 09:36 Height 5 ft 6 in Weight 164 lb 3.91 oz BMI 26.5 Intake Visit Reasons: Gastroesophageal reflux disease (GERD) Allergies buspirone Allergy (Intermediate, Verified 04/21/23 13:18) Rash Sulfa (Sulfonamide Antibiotics) Allergy (Intermediate, Verified 04/21/23 13:18) RASH amoxicillin [From AUGMENTIN] Allergy (Unknown, Verified 04/21/23 13:18) PER H&P clavulanic acid [From AUGMENTIN] Allergy (Unknown, Verified 04/21/23 13:18) PER H&P garlic [GARLIC] Allergy (Unknown, Verified 04/21/23 13:18) PER H&P metronidazole [From FLAGYL] Allergy (Unknown, Verified 04/21/23 13:18) OCULAR MIGRAINES penicillamine Allergy (Unknown, Verified 04/21/23 13:18) Unknown ciprofloxacin Adverse Reaction (Intermediate, Verified 04/21/23 13:18) neuropathic pain lisinopril Adverse Reaction (Intermediate, Verified 04/21/23 13:18) Cough nitrofurantoin Adverse Reaction (Mild, Verified 04/21/23 13:18) GI side effects environmental Allergy (Unknown, Uncoded 04/21/23 13:18) Unknown flagyl Allergy (Unknown, Uncoded 04/21/23 13:18) Unknown From KEFLEX Allergy (Unknown, Uncoded 04/21/23 13:18) RASH Metoprolol Tartrate Allergy (Unknown, Uncoded 04/21/23 13:18) Unknown Sulfacet-R Allergy (Unknown, Uncoded 04/21/23 13:18) Unknown HPI Nutrition Presentation Details Pt presents MNT for constipation. Pt has hx of slow transit constipation and GERD without esophagitis. Pt was referred by PCP: Cyrus GAVIN Pt reports typically having 3 meals/day , small meals typcial meal B: [place] with peanut butter, varies toast wheat/white/rye, tea or water L: sand or mashed potato/chicken or soup D: same a s lunch pt reports preparing own meals, shopping, food frequency dairy: yogurt 0-1/d, cheese 0-1/d, milk 0, ice cream 0 - reports selecting dairy free options r/t constipation fruits :-0-1/d non starchy ve servings daily starchy veg 2-3 serving/d starches 10-12 serving/d complex/simple carb combination fluids: water, tea, mainly 16 oz/d FXC-Tsjbeon-Kp.Jeor Equation Height 5 ft 6 in Weight 164 lb Resting Metabolic Rate 1226.46 Calculated Activity Level Mild Activity Calories Needed to Maintain Weight 1686.38 Diagnosis Nutrition problem #1 other (low fiber intake and low fluid intake ) As related to (etiology) #1 diagnosis (constipation) As evidenced by (sign/symptom) #1 food recall Monitoring/Goals Nutrition problem monitoring level of knowledge/skill and oral fluids Nutrition goal/outcome list 3 high fiber foods Outcome progress verbalized understanding Learning/Education Readiness to learn fair Educational materials provided Yes (fiber list , meal plan, fluid w meal/snack > 32 oz/d) Most Recent Diabetes Results: No Data to Display [facility] Medical History Anxiety Arthritis Diverticulitis GERD (gastroesophageal reflux disease) Heart murmur HTN (hypertension) Irritable bowel Neuropathy Surgical History History of appendectomy History of tonsillectomy Hx of colonoscopy Hx of esophagogastroduodenoscopy Family History Father No problems noted. Mother No problems noted. Social History Household Members: Children Housing: House Are you a primary healthcare business analyst to a significant other at home: No Do you presently have visiting nurse or other home services: No Alcohol intake: never Patient Tobacco Use Status: Former Tobacco user Quit Date: 2013 e-Cigarette/Vaping Use: Never Used Second Hand Smoke Exposure: No Advance Directives Date on File: 11/21/22 service: No Current occupational status: retired Cognitive needs: No Hearing needs: No Vision needs: Yes (glasses) Assessment & Plan Assessment & Plan (1) Constipation: Code(s): K59.00 - Constipation, unspecified Qualifiers: Constipation type: slow transit constipation Qualified Code(s): K59.01 - Slow transit constipation (2) GERD without esophagitis: Code(s): K21.9 - Gastro-esophageal reflux disease without esophagitis Plan: wt 74 kg Est kcal needs as per MSJ: 1600 (40% carb, 30% protein/fat) Est fluid needs as per 25- ml/d: 1800 Est prot per day as per 1 g/kg bw: 74 Recommend fiber intake : 8-10 g per day and gradually increase to 14 g per day for now Educated patient on: ( R = reviewed V = verbalizes understanding N/R = needs review N/A = not applicable Differences between complex carbohydrates a simple carbohydrates, role of fiber in diet: R Importance of hydration to help bowel movements : R Medications: Discontinued fluticasone propionate 50 mcg/actuation administer into each nostril 1 spray intranasal DAILY 30 days 16 grams 3RF J30.9 - Allergic rhinitis, unspecified Patient Instructions: Choose high fiber foods - have oatmeal twice a week Have prune juice at lunch have water with other meals and snacks see meal plan and list ofhigh fiber foods. Coding Level of Care Code Nutr Indiv Intake (97213) Diagnoses Constipation K59.01 Constipation type: slow transit constipation GERD without esophagitis K21.9 Time Spent (min) 30
[2023-05-10 18:44] VITALS: BMI 26.5
== END 2023-04-26 10:17 | disposition home or self-care (01) ==
PROVIDERS: PCP Physician Assistant; Visit Provider Dietitian, Registered
DX: K59.01 Slow transit constipation (principal); K21.9 Gastro-esophageal reflux disease without esophagitis

== ENCOUNTER → 2023-04-26 09:28 | Outpatient (BNVA) | payer MEDICARE, OTHER, SELFPAY | PROVIDERS: PCP Physician Assistant; Visit Provider Dietitian, Registered | DX: K21.9 Gastro-esophageal reflux disease without esophagitis (principal); K59.01 Slow transit constipation; Z71.3 Dietary counseling and surveillance | CPT/HCPCS: 97802 ==

== ENCOUNTER 2023-05-06 09:20 | Outpatient (REF) | payer MEDICARE, OTHER, SELFPAY ==
--- NOTE | ~2023-05-06 | XR_ITS ---
EXAMINATION: XR BILATERAL HIPS WITH AP PELVIS CLINICAL INFORMATION: Fracture. COMPARISON: Radiographs dated 03/21/2023; CT pelvis dated 03/21/2023.. TECHNIQUE: AP view of the pelvis and AP and frog-leg lateral views of the bilateral hips were obtained. FINDINGS: Bony alignment and mineralization are normal. The bilateral acetabular joint spaces are well-maintained. The femoral heads are smooth. The sacroiliac joints are symmetric and well-maintained. The pubic symphysis is intact. 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 Healing fractures are noted of the medial left superior and inferior pubic, with callus formation. No foreign body is seen. There are left femoral atherosclerotic calcifications. XR/XR hip BI w PEL1V IMPRESSION: 1. No unusual degenerative change is seen of the hips. 2. Healing fractures are noted of the left superior and inferior pubic rami.
== END 2023-05-06 09:21 | disposition home or self-care (01) ==
LOC: HO.XRAY 09:20
PROVIDERS: PCP Physician Assistant; Visit Provider Internal Medicine
DX: S32.591S Other specified fracture of right pubis, sequela (principal); X58.XXXS Exposure to other specified factors, sequela
CPT/HCPCS: 73521

== ENCOUNTER 2023-05-11 09:03 | Outpatient (AMB) | payer MEDICARE, OTHER, SELFPAY ==
--- OUTSIDE RECORDS SUMMARY | 2023-05-11 09:05 | XMS_ITS | Patient Health Record ---
Author Name Unknown [facility] Address [address] [place] [address] Care Team Providers Care Regulatory Process Manager Name Role Phone Nick Gomez Primary Care Provider Unavailab Kwadwo Braswell Unavailable [phone] Josh Blanc Unavailable [phone] Julieth Rosa Unavailable [phone] ALLERGIES Allergen (clinical drug ingredient) Drug/Non Drug [...] confirmed Acquired hammer toe of left foot (0801624390949550 ) Problem Atherosclerosis of [place] artery of both lower extremities, with unspecified presence of clinical manifestation (I70.203) Active confirmed Atherosclerosis of [place] arteries of the extremities (470481802378817) Problem Arthritis of joint of lesser toe, left (M19.072) Active confirmed Localized, primary osteoarthritis of the ankle and/or foot (919332569) VITAL SIGNS Height 5 ft 8 in in 02/10/2023 Weight 173 lbs 02/10/2023 BMI 26.3 kg/m2 02/10/2023 PROCEDURES Procedure Date Ordered Date Performed Result Body Sit e 80747-TMAEARE NAIL, 6 OR MORE 09/20/2022 N/A 51373-Yaecvskx Plate 09/20/2022 N/A 41305-AOTP SKIN LESIONS, OVER 4 09/20/2022 N/A 37561- Debride <25 sq cm 11/25/2022 N/A 01539-SIYONID NAIL, 6 OR MORE 01/06/2023 N/A 12084-WXBQ SKIN LESIONS, OVER 4 01/06/2023 N/A 11430- Debride <25 sq cm 02/10/2023 N/A Encounters Encounter Location Date Provider Diagnosis [facility] [address] [address] 06/23/2022 Kwadwo Hendricks [facility] [address] [address] 06/24/2022 Julieth Rosa [facility] [place] [address] 08/19/2022 Kwadwo Hendricks [facility] [address] 08/19/2022 Kwadwoedmundo Schultzier [facility] [address] 09/20/2022 Kwadwo Ruthie [facility] [address] 09/20/2022 Kwadwoedmundo Schultzier [facility] [address] 09/20/2022 Kwadwoedmundo Hendricks Atherosclerosis of [place] artery of both lower extremities, with unspecified presence of clinical manifestation I70.203 ; Ingrowing nail L60.0 ; Tinea unguium B35.1 ; Pain in right toe(s) M79.674 and Pain in left toe(s) M79.675 [facility] [address] [address] 11/22/2022 Kwadwo Hendricks [address] [address] 11/25/2022 Kwadwo Hendricks 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 ; Pain in left toe(s) M79.675 ; Other hammer toe(s) (acquired), left foot M20.42 and Arthritis of joint of lesser toe, left M19.[address] [address] 11/29/2022 Julieth Rosa [facility] [address] 12/23/2022 Kwadwo Ruthie [address] [address] 01/06/2023 Kwadwo Ruthie Atherosclerosis of [place] artery of both lower extremities, with unspecified presence of clinical manifestation I70.203 ; Tinea unguium B35.1 ; Pain in right toe(s) M79.674 and Pain in left toe(s) M79.[address] [address] 01/06/2023 [facility] Hendricks [facility] [address] [facility] [address] [place] [address] 01/24/2023 Kwadwo Hendricks [address] [address] 01/25/2023 Josh Blanc [address] [address] 02/10/2023 Kwadwo Hendricks Skin ulcer of toe of left foot, limited to breakdown of skin L97.521 ; Pain in left toe(s) M79.675 ; Other hammer toe(s) (acquired), left foot M20.42 ; Arthritis of joint of lesser toe, left M19.072 and Other subluxation of left foot, initial encounter S93.332A [address] [address] 02/10/2023 Kwadwo Hendricks [address] [address] 04/03/2023 [facility] [place] Ruthie [address] [address] 04/11/2023 Kwadwo Hendricks ASSESSMENTS Encounter Date Diagnosis Assessment Notes Treatment Notes Treatment Clinical Notes 09/20/2022 Ingrowing nail (ICD- 10 - L60.0) 09/20/2022 Atherosclerosis of [place] artery of both lower extremities, with unspecified presence of clinical manifestation (ICD-10 - I70.203) 11/25/2022 Non-pressure chronic ulcer of other part of left foot limited to breakdown of skin (ICD-10 - L97.521) 11/25/2022 Pain in left toe(s) (ICD-10 - M79.675) 01/06/2023 Tinea unguium (ICD-1 0 - B35.1) 01/06/2023 Atherosclerosis of [place] artery of both lower extremities, with unspecified [...] 09/20/2022 Tinea unguium (ICD-1 0 - B35.1) 01/06/2023 Pain in left toe(s) (ICD-10 - M79.675) 11/25/2022 Arthritis of joint o f lesser toe, left (ICD-10 - M19.072) 09/20/2022 Pain in right toe(s) (ICD-10 - M79.674) 02/10/2023 Arthritis of joint o f lesser toe, left (ICD-10 - M19.072) 02/10/2023 Other subluxation of left foot, initial encounter (ICD-10 - S93.332A) 09/20/2022 Pain in left toe(s) (ICD-10 - M79.675) 02/10/2023 Other PLAN OF TREATMENT Pending Test Test Name Order Date *Uric Acid, Serum 11/27/2020 93316-PYZRNFE NAIL, 6 OR MORE 03/23/2021 03709-JVETFXW NAIL, 6 OR MORE 11/23/2021 17812-CAMKVHW NAIL, 6 OR MORE 07/19/2016 64179-AUDFNDL NAIL, 6 OR MORE 08/25/2017 31759-SYKIUST NAIL, 6 OR MORE 02/02/2018 47731-WXNVXWJ NAIL, 6 OR MORE 08/07/2018 04292-OPMYNSO NAIL, 6 OR MORE 04/16/2019 55398-HBQHFSG NAIL, 6 OR MORE 12/02/2011 39749-OIRQPBV NAIL, 6 OR MORE 03/24/2015 39265-MZJNTBK NAIL, 6 OR MORE 03/20/2020 81972-VAPFKYK NAIL, 6 OR MORE 06/12/2020 93214-HSITUQG NAIL, 6 OR MORE 09/20/2022 05897-RAJJTTM NAIL, 6 OR MORE 01/06/2023 68138-VPCVBSM NAIL, 6 OR MORE 09/08/2020 72972-VPPRYAW NAIL, 6 OR MORE 11/24/2017 98681-LHAMZCF NAIL, 6 OR MORE 01/10/2017 47772-AINGFPW NAIL, 6 OR MORE 10/10/2014 49695-FEAYUGO NAIL, 6 OR MORE 07/10/2012 31787-ZYEAILO NAIL, 6 OR MORE 04/06/2012 40195-Xvvromoy Plate 09/08/2020 10138-Azsjtkyu Plate 09/20/2022 07865-Juhzevkh Plate 06/12/2020 62245-Bimalcux Plate 03/20/2020 04184-Ymrwhfjm Plate 04/16/2019 08736-Yspskdqm Plate 11/23/2021 87531-Oshipmwq Plate 03/23/2021 98385-Alfrdhki Plate Each Additional 05814-Hyokbbip Plate Each Additional 36137- Debride <25 sq cm 03/24/2015 03066- Debride <25 sq cm 12/31/2021 22431- Debride <25 sq cm 11/25/2022 55622- Debride <25 sq cm 02/10/2023 43150-YNYW SKIN LESIONS, OVER 4 01/07/20 23 71754-GXJF SKIN LESIONS, OVER 4 09/20/19 23 33325-IBOA SKIN LESIONS, 2 TO 4 11/24/19 22 20297, J3321-DIXGT/INJECT, JOINT/BURSA 0 09/08/2020 17818 - Tenotomy, open flexor 12/01/2017 Insurance Providers Payer Name Payer Address Payer Phone Subscriber Number Group Number Insured Name Patient Relationship to Insured Coverage Start Date Coverage End Date Medicare National [employer] [address] [place] [address] [id number] Bella Henley Self - patient is the insured [facility] [address] [place] [phone] [id number] Bella Henley Self - patient is the insured MEDICAL (GENERAL) HISTORY Medical History History ICD Code back, hip, knee pain transfusions reflux measles chicken pox Anxiety disorder Peripheral neuropathy Surgical History Surgery Date(Month/Year) tonsillectomy appendectomy intestinal blockage 11/2013 Hospitalization History Reason Date(Month/Year) [facility] ER- stomach pains - Gerd /IBS due to anxiety 01/2021,02/2021 Patient admitted to [facility] x 5 days; diverticulitis 12/2014
--- OUTSIDE RECORDS SUMMARY | 2023-05-11 09:06 | XMS_ITS | Patient Health Record ---
Author Name Unknown Organization [facility] Address [address] [place] [address] Care Team Providers Care Family And Consumer Sciences Professor Name Role Phone Nick Gomez Primary Care Provider UnavailAnatoliy Hernandez [phone] ALLERGIES Allergen (clinical drug ingredient) Drug/Non Drug Allergy documented on EMR Reaction Allergy Type Onset Date Status Sulfa Unknown Drug Allergy Active metronidazole Flagyl Unknown Drug Allergy Act maya Augmentin Unknown Drug Allergy Active garlic (uncoded) Unknown Allergy Act maya REASON FOR REFERRAL No Information MEDICATIONS Medication SIG (Take, Route, Frequency, Duration) Notes Start Date End Date Status Ondansetron 4 MG 1 tablet on the tong ue and allow to dissolve Orally Every 6 hours as needed for nausea for 30 day(s) 12/13/2022 Active Stool Softener 100 MG 1 capsule as neede d Orally as directed occasionally Active ALPRAZolam 0.25 MG 1 tablet Orally Twic e a day Active Famotidine 40 MG 1 Orally Twice a day for 90 days 11/25/2022 Active Flonase 50 MCG/ACT 1 spray in each nostril Nasally prn Active Valsartan-hydroCHLOROth iazide 80-12.5 MG 1 tablet Orally Once a day for 30 day(s) twice a day Active Omeprazole 40 MG 1 Orally Twice a day for 90 days 06/14/2022 Active Simethicone 125 MG 1 tablet after meals and at bedtime as needed Orally Four times a day Active CeleXA 10 MG 1 tablet Orally Once a day for 30 day(s) Active Dicyclomine HCl 10 MG 1-2 capsules Orall y QID prn abdominal cramps/discomfort for 30 days 05/15/2019 Active Meclizine HCl 25 MG 1 tablet as needed Orally every 12 hrs Active Zofran 4 MG 1 tablet Orally Q 6 hours prn nausea for 30 day(s) 06/25/2020 Active Tylenol 325 MG 1 capsule as needed Orally every 4 hrs/prn occasionally Active IMMUNIZATIONS Vaccine Route Administration Date Status Comme nts Flu vaccine no Preserv 3 and > Unknown 06/17/2014 Admin istered Flu vaccine no Preserv 3 and > Unknown 05/05/2015 Admin istered Influenza Unknown 05/05/2017 Administered Influenza Unknown 06/13/2018 Administered Influenza Unknown 06/18/2019 Administered Influenza Unknown 06/04/2020 Administered Influenza Unknown 06/23/2021 Administered Influenza Unknown 05/24/2022 Administered SOCIAL HISTORY Tobacco Use: Social History Observation Description Date Details (start date - stop date) Former Smoker NA - NA Sex Assigned At : Social History Observation Description Sex Assigned At Unknown Tobacco Use/Smoking Question Answer Notes Patient is a former smoker How long has it been since you last smoked? 5-10 years PROBLEMS Problem Type ICD Code Onset Dates Problem Status W/U Status Risk SNOMED Code Notes Problem Rectal bleeding (K62.5) Active confirmed 88772367 Problem Diverticulitis of large intestine without perforation or abscess without bleeding (K57.32) Active confirmed 5095279 Problem History of adenomatous polyp of colon (Z86.010) Active confirmed 772277285 Problem Irritable bowel syndrome with diarrhea (K58.0) Active confirmed 080537376 Problem Irritable bowel syndrome without diarrhea (K58.9) Active confirmed 62195063 Problem Diverticulosis (K57.90) Active confirmed 899016857 Problem Gastroesophageal reflux disease without esophagitis (K21.9) Active confirmed 572363494 Problem Heme + stool (R19.5) Active confirmed 58286674 Problem Hiatal hernia (K44.9) Active confirmed Hiatal hernia (82776159) Problem GERD (gastroesophageal reflux disease) (K21.9) Active confirmed Gastroesophagea l reflux disease (773238049) Problem Abnormal CT scan, sigmoid colon (R93.3) Active confirmed 526235154 Problem Irritable bowel syndrome with constipation (K58.1) Active confirmed 416384828 Problem Irritable bowel syndrome with both constipation and diarrhea (K58.2) Active confirmed 54785595 Problem LLQ abdominal pain (R10.32) Active confirmed 391817524 Problem Gastroesophageal reflux disease, unspecified whether esophagitis present (K21.9) Active confirmed 362691360 Encounters Encounter Location Date Provider Diagnosis [facility] Outpatient [address] [place], [place] [phone] 01/09/2023 Anatoliy Cowan [facility] [address] [place] [address] 12/07/2022 Anatoliy Escobar Heme + stool R19.5 ; LLQ abdominal pain R10.32 ; Gastroesophageal reflux disease, unspecified whether esophagitis present K21.9 ; History of adenomatous polyp of colon Z86.010 and Irritable bowel syndrome with constipation K58.1 [facility] [address] [place] [address] 06/02/2022 Anatoliy Escobar [facility] [address] [place] [address] 06/06/2022 Anatoliy Escobar [facility] [address] [place] [address] 07/25/2022 Anatoliy Escobar [facility] [address] [place] [address] 08/01/2022 Anatoliy Cowan [facility] [address] [place] [address] 08/12/2022 Anatoliy Escobar [facility] [address] [place] [address] 08/16/2022 Anatoliy Escobar [facility] [address] [place] [address] 08/30/2022 Anatoliy Escobar [facility] [address] [place] [address] 09/20/2022 Anatoliy Cowan [facility] [address] [place] [address] 09/26/2022 Anatoliy Escobar [facility] [address] [place] [address] 09/28/2022 Anatoliy Escobar [facility] [address] [place] [address] 10/25/2022 Anatoliy Escobar [facility] [address] [place] [address] 11/25/2022 Anatoliy Cowan [facility] [address] [place] [address] 11/30/2022 [facility] [address] [place] [address] 12/12/2022 Anatoliy Escobar [facility] [address] [place] [address] 12/13/2022 Anatoliy Escobar [facility] [address] [place] [address] 12/20/2022 Anatoliy Cowan [facility] [address] [place] [address] 12/26/2022 Anatoliy Escobar [facility] [address] [place] [address] 01/02/2023 Anatoliy Escobar [facility] [address] [place] [address] 01/03/2023 Anatoliy Escobar [facility] [address] [place] [address] 01/09/2023 [facility] [address] [place] [address] 02/17/2023 Anatoliy Escobar [facility] [address] [place] [address] 02/20/2023 Anatoliy Escobar [facility] [address] [place] [address] 02/24/2023 Anatoliy Escobar ASSESSMENTS Encounter Date Diagnosis Assessment Notes Treatment Notes Treatment Clinical Notes 12/07/2022 Heme + stool (ICD-10 - R19.5) Continue Dicyclomine and a heating pad for the abdominal pain Continue Famotidine or the omeprazole for the reflux/heartburn Use Ondansetron for the nausea Continue to use fiber supplements such as Metamucil to try to keep your bowel movements more regular 12/07/2022 LLQ abdominal pain (ICD-10 - R10.32) 12/07/2022 Gastroesophageal reflux disease, unspecified whether esophagitis present (ICD-10 - K21.9) 12/07/2022 History of adenomato us polyp of colon (ICD-10 - Z86.010) 12/07/2022 Irritable bowel syndrome with constipation (ICD-10 - K58.1) PLAN OF TREATMENT Pending Test Test Name Order Date CBC w DIFF 09/27/2021 CELIAC PANEL #10 02/24/2017 Future Test Test Name Order Date COLONOSCOPY 07/13/2012 COLONOSCOPY 12/26/2018 UPPER GI ENDOSCOPY 12/07/2022 COLONOSCOPY 12/07/2022 Insurance Providers Payer Name Payer Address Payer Phone Subscriber Number Group Number Insured Name Patient Relationship to Insured Coverage Start Date Coverage End Date MEDICARE OF [place] [address] [place] [phone] [id number] VIKAS KNIGHT Self - patient is the insured [facility] [address] [place] [address] [id number] VIKAS KNIGHT Self - patient is the insured MEDICAL (GENERAL) HISTORY Medical History History ICD Code Colon and EGD 06-07-2007--no polyps, but diverticulosis; hiatal hernia GERD--EGD in September of 2012 with the finding of a minimal hiatal hernia and gastritis, with biopsies negative for H. pylori and negative for Aldana's esophagus Personal history of colon polyps-tubular adenomas removed in 2003 and 09/2012 Denies NC,DM,CVA,renal disease COPD Colonoscopy 09/2012-small tub ular adenomas removed, mild sigmoid diverticulosis, and small internal hemorrhoids Diverticulitis--Spring 2014 at [facility]--salty parag with IV antibiotics Colonoscopy 10/2014 at [facility]---diverticulos is, nonspecific inflammation EGD 09/2014 at [facility] --HH, mild reflux Colonoscopy 06/2019-1 tubular adenoma re moved, diverticulosis EGD 06/2019 small HH, gastritis, neg Hpy carmen, normal duodenal biopsies IBS with constipation/diarrhea vertigo Surgical History Surgery Date(Month/Year) appendectomy tonsillectomy D&C S[facility] - Surgery with Dr. Roger at [facility] 11/2013
[2023-05-11 10:51] VITALS: BP 120/72; PULSE 83; TEMP 36.8; O2SAT 97; BMI 31.6
--- NOTE | 2023-05-11 10:51 | MHC.OFFWIV ---
Intake Vital Signs 05/11/23 10:51 Height 5 ft 6 in Weight 196 lb BMI 31.6 BP 120/72 Blood Pressure Location Rt brachial Position Sitting Pulse 83 Pulse Source Pulse Oximeter Temp 98.3 F Temp Source Temporal Artery Scan Pulse Oximetry (%) 97 Intake Visit Reasons: EP RT Ear ? Infection Intake Note: pt is here for c.o ear pain concern of ear infection Patient Tobacco Use Status: Former Tobacco user Quit Date: 2013 Allergies buspirone Allergy (Intermediate, Verified 05/11/23 10:52) Rash Sulfa (Sulfonamide Antibiotics) Allergy (Intermediate, Verified 05/11/23 10:52) RASH amoxicillin [From AUGMENTIN] Allergy (Unknown, Verified 05/11/23 10:52) PER H&P clavulanic acid [From AUGMENTIN] Allergy (Unknown, Verified 05/11/23 10:52) PER H&P garlic [GARLIC] Allergy (Unknown, Verified 05/11/23 10:52) PER H&P metronidazole [From FLAGYL] Allergy (Unknown, Verified 05/11/23 10:52) OCULAR MIGRAINES penicillamine Allergy (Unknown, Verified 05/11/23 10:52) Unknown ciprofloxacin Adverse Reaction (Intermediate, Verified 05/11/23 10:52) neuropathic pain lisinopril Adverse Reaction (Intermediate, Verified 05/11/23 10:52) Cough nitrofurantoin Adverse Reaction (Mild, Verified 05/11/23 10:52) GI side effects environmental Allergy (Unknown, Uncoded 04/21/23 13:18) Unknown flagyl Allergy (Unknown, Uncoded 04/21/23 13:18) Unknown From KEFLEX Allergy (Unknown, Uncoded 04/21/23 13:18) RASH Metoprolol Tartrate Allergy (Unknown, Uncoded 04/21/23 13:18) Unknown Sulfacet-R Allergy (Unknown, Uncoded 04/21/23 13:18) Unknown Do you need a note to return to daycare/school/sports/work: Yes HPI HPI Comments History of Present Illness Details Hey 2-year-old female presents with ear pain /neck. Patient states that she has been experiencing pain in the side of her neck on the right side for 2 days. Pain is worse with movement of the neck lateral rotation no fevers or chills PFSH Medical History Anxiety Arthritis Diverticulitis GERD (gastroesophageal reflux disease) Heart murmur HTN (hypertension) Irritable bowel Neuropathy Surgical History History of appendectomy History of tonsillectomy Hx of colonoscopy Hx of esophagogastroduodenoscopy Family History Father No problems noted. Mother No problems noted. Social History Household Members: Children Housing: House Are you a primary home health care social worker to a significant other at home: No Do you presently have visiting nurse or other home services: No Alcohol intake: never Patient Tobacco Use Status: Former Tobacco user Quit Date: 2013 e-Cigarette/Vaping Use: Never Used Second Hand Smoke Exposure: No Advance Directives Date on File: 11/21/22 service: No Current occupational status: retired Cognitive needs: No Hearing needs: No Vision needs: Yes (glasses) Review of Systems Const All systems reviewed & are unremarkable except as noted in HPI and below ENT Reports neck pain Musc Reports neck pain Physical Exam Vital Signs: Last Vital Signs Temp 98.3 F 05/11/23 10:51 Pulse 83 05/11/23 10:51 BP 120/72 05/11/23 10:51 Pulse Ox 97 05/11/23 10:51 BMI result Body Mass Index 31.6 Const General: no acute distress and alert HEENT Other: no tragal tenderness tympanic membrane intact no erythema tears palpation over the sternocleidomastoid muscle. Pain with lateral rotation. Assessment & Plan Assessment & Plan (1) Neck strain: Code(s): S16.1XXA - Strain of muscle, fascia and tendon at neck level, initial encounter Plan signs and symptoms consistent with neck strain will prescribe diclofenac topical recommend heat stretching massage. Discharge instructions, follow up and treatment are discussed with patient in my usual fashion. Alternatives in treatment are also discussed. The patient will return for worsening symptoms or as needed. Advised that any labs/imaging ordered will be followed up on and contact made if further treatment needed. Counseled that patient's condition may require further evaluation and/or treatment. Symptoms of concern for worsening disorder discussed in detail in my customary manner. Patient does verbalize understanding of the plan, there are no apparent barriers to communication. The patient is given the opportunity to ask questions and have them answered to his/her satisfaction Medications: New diclofenac sodium 1% (Arthritis Pain (diclofenac)) apply to side of neck 2 grams topical QID 100 grams 0RF Coding Level of Care Code Est Pt Level 3 (71215) Diagnoses Neck strain S16.1XXA
== END 2023-05-11 11:14 | disposition home or self-care (01) ==
PROVIDERS: PCP Physician Assistant; Visit Provider Physician Assistant
DX: S16.1XXA Strain of muscle, fascia and tendon at neck level, initial encounter (principal)
CPT/HCPCS: 99213

== ENCOUNTER 2023-05-15 14:04 | Outpatient (AMB) | payer MEDICARE, OTHER, SELFPAY ==
--- NOTE | 2023-05-15 14:06 | MHC.PC.OV ---
Vital Signs 05/15/23 14:10 Height 5 ft 6 in Weight 164 lb 4 oz BMI 26.5 BP 130/68 Blood Pressure Location Lt brachial Position Sitting Pulse 84 Pulse Source Pulse Oximeter Pulse Oximetry (%) 97 Oxygen Delivery Method Room Air Intake Visit Reasons: Swollen Glands Intake Note: Patient is here today for swelling of the lymph nodes Feed Preparation Operator Required: No Deli Bakery Clerk: Not Required per policy Accompanied by: Self / Same As Patient Allergies buspirone Allergy (Intermediate, Verified 05/15/23 14:09) Rash Sulfa (Sulfonamide Antibiotics) Allergy (Intermediate, Verified 05/15/23 14:09) RASH amoxicillin [From AUGMENTIN] Allergy (Unknown, Verified 05/15/23 14:09) PER H&P clavulanic acid [From AUGMENTIN] Allergy (Unknown, Verified 05/15/23 14:09) PER H&P garlic [GARLIC] Allergy (Unknown, Verified 05/15/23 14:09) PER H&P metronidazole [From FLAGYL] Allergy (Unknown, Verified 05/15/23 14:09) OCULAR MIGRAINES penicillamine Allergy (Unknown, Verified 05/15/23 14:09) Unknown ciprofloxacin Adverse Reaction (Intermediate, Verified 05/15/23 14:09) neuropathic pain lisinopril Adverse Reaction (Intermediate, Verified 05/15/23 14:09) Cough nitrofurantoin Adverse Reaction (Mild, Verified 05/15/23 14:09) GI side effects environmental Allergy (Unknown, Uncoded 05/15/23 14:09) Unknown flagyl Allergy (Unknown, Uncoded 05/15/23 14:09) Unknown From KEFLEX Allergy (Unknown, Uncoded 05/15/23 14:09) RASH Metoprolol Tartrate Allergy (Unknown, Uncoded 05/15/23 14:09) Unknown Sulfacet-R Allergy (Unknown, Uncoded 05/15/23 14:09) Unknown Tobacco use date assessed: 05/15/23 HPI HPI Comments History of Present Illness Details 82-year-old female past medical history significant for severe generalized anxiety disorder, GERD, nonrheumatic aortic stenosis, hypertension. Patient of Alberto Gomez last seen in April patient presents today for ? Swollen lymph node. Review of the notes patient was seen at the walk-in clinic on 05/12/2023 for cervical neck strain for right-sided neck pain patient was advised to stretch in use diclofenac cream. Patient reports that she went to [facility] walk-in clinic for continued right neck pain and right ear pain over the weekend. Rapid strep was negative patient was told to follow-up for possible swollen lymph node. On examination bilateral TMs pearly no signs of otitis media. Patient neck is supple no inflamed lymph nodes noted. Patient does report that she has had a stuffy nose with postnasal drip. Advised to start back on her daily allergy pill. [facility] Medical History Anxiety Arthritis Diverticulitis GERD (gastroesophageal reflux disease) Heart murmur HTN (hypertension) Irritable bowel Neuropathy Surgical History Hx of esophagogastroduodenoscopy Hx of colonoscopy History of tonsillectomy History of appendectomy Family History Father No problems noted. Mother No problems noted. Social History Household Members: Children Housing: House Are you a primary medicare nurse to a significant other at home: No Do you presently have visiting nurse or other home services: No Alcohol intake: never Patient Tobacco Use Status: Former Tobacco user Quit Date: 2013 e-Cigarette/Vaping Use: Never Used Second Hand Smoke Exposure: No Advance Directives Date on File: 11/21/22 service: No Current occupational status: retired Cognitive needs: No Hearing needs: No Vision needs: Yes (glasses) Questionnaire Thrive Questionnaire Date Thrive assessed: 01/23/23 PAIGE-7 AMB Questionnaire PAIGE-7 Date PAIGE - 7 assessed: 10/06/22 Source: Developed by Drs. Anatoliy Gavin, Peyton Hunt, Austyn Weber and colleagues, with an educational kentrell from [employer]. Review of Systems Const Denies chills, Denies fatigue, Denies fever(s) and Denies poor appetite Eyes Denies no additional complaints ENT Reports Normal hearing present Card Denies chest pain, Denies syncope, Denies rapid heart rate and Denies dyspnea Resp Denies cough and Denies dyspnea GI Denies change in stool character, Denies constipation, Denies diarrhea, Denies nausea and Denies vomiting Denies urinary frequency, Denies dysuria and Denies urinary urgency Neuro Reports Normal hearing present, Denies confusion and Denies syncope Psych Denies confusion Endo Denies fatigue Physical exam (Primary Care) Vital Signs: Last Vital Signs Pulse 84 05/15/23 14:10 BP 130/68 05/15/23 14:10 Pulse Ox 97 05/15/23 14:10 Oxygen Delivery Method Room Air 05/15/23 14:10 BMI result Body Mass Index 26.5 Tobacco/Smoking Status: Tobacco use Status Tobacco use date assessed 05/15/23 05/15/23 14:18 Patient Tobacco Use Status Former Tobacco user 05/15/23 14:18 e-Cigarette/Vaping Use Never Used 05/15/23 14:18 Thrive Assessment: Date of Thrive Assessment Date Thrive assessed 01/23/23 05/15/23 14:18 Const General: No confusion Orientation/consciousness: No confusion HENMT Head: Yes normocephalic and Yes atraumatic Ears: external ears normal and TM's normal bilaterally General nose exam: Normal external nose present and Normal nasal mucous membranes and turbinates present Face and sinus: Yes normal facial exam and Yes sinuses nontender Mouth: moist mucous membranes Throat: Yes tonsils normal Eyes Conjunctivae: conjunctivae normal Neck Neck: Yes no lymphadenopathy and Yes supple Thyroid: Thyroid normal Chest Chest palpation & inspection: normal inspection of the chest Resp Effort & Inspection: normal respiratory effort Auscultation: clear to auscultation bilaterally, no crackles, no rhonchi and no wheezes Cardio Rate: regular rate Rhythm: regular rhythm Heart sounds: S1 normal heart sound present and S2 normal heart sound present GI Inspection: Yes normal to inspection Neuro General: No confusion Cranial nerves: Yes Normal hearing present Extrem General: No edema Assessment and Plan Assessment & Plan (1) Strain of neck muscle: Code(s): S16.1XXA - Strain of muscle, fascia and tendon at neck level, initial encounter Plan: Patient's symptoms consistent with cervical neck muscle strain. Continue to apply heat and continue with stretches. Patient reports she does not want any use diclofenac cream and does not want to take any NSAID medication as history of GERD and upsets her stomach. Patient advise can take Tylenol as needed for pain. Patient advised if no improvement of cervical neck pain can refer to physical therapy once completed her PT for her pelvic fracture. (2) GERD without esophagitis: Code(s): K21.9 - Gastro-esophageal reflux disease without esophagitis Plan: Continue on omeprazole. (3) Pubic ramus fracture: Code(s): S32.599A - Other specified fracture of unspecified pubis, initial encounter for closed fracture Qualifiers: Encounter type: sequela Fracture type: closed Laterality: right Qualified Code(s): S32.591S - Other specified fracture of right pubis, sequela Plan: Continue with physical therapy. (4) HTN (hypertension): Code(s): I10 - Essential (primary) hypertension Qualifiers: Hypertension type: primary hypertension Qualified Code(s): I10 - Essential (primary) hypertension Plan: Continue on losartan 25 mg daily Plan Keep scheduled follow-up in 2 months or follow-up sooner if needed. Coding Level of Care Code Est Pt Level 4 (48658) Diagnoses Strain of neck muscle S16.1XXA GERD without esophagitis K21.9 Closed fracture of ramus of right pubis, sequela S32.591S Encounter type: sequela Fracture type: closed Laterality: right Primary hypertension I10 Hypertension type: primary hypertension
--- OUTSIDE RECORDS SUMMARY | 2023-05-15 14:07 | XMS_ITS | Patient Health Record ---
Author Name Unknown [facility] Address [address] [place] [address] Care Team Providers Care Dietitian Name Role Phone Nick Gomez Primary Care Provider Unavailab Kwadwo Braswell Unavailable [phone] Josh Blanc Unavailable [phone] Julieth Rosa Unavailable [phone] ALLERGIES Allergen (clinical drug ingredient) Drug/Non Drug [...] confirmed Acquired hammer toe of left foot (2546697379521989 ) Problem Atherosclerosis of robinson artery of both lower extremities, with unspecified presence of clinical manifestation (I70.203) Active confirmed Atherosclerosis of robinson arteries of the extremities (105782526865767) Problem Arthritis of joint of lesser toe, left (M19.072) Active confirmed Localized, primary osteoarthritis of the ankle and/or foot (765151780) VITAL SIGNS Height 5 ft 8 in in 02/10/2023 Weight 173 lbs 02/10/2023 BMI 26.3 kg/m2 02/10/2023 PROCEDURES Procedure Date Ordered Date Performed Result Body Sit e 36986-VFDBZNS NAIL, 6 OR MORE 09/20/2022 N/A 99351-Jlkzvroc Plate 09/20/2022 N/A 22570-ZODM SKIN LESIONS, OVER 4 09/20/2022 N/A 63967- Debride <25 sq cm 11/25/2022 N/A 41071-NUWZKNF NAIL, 6 OR MORE 01/06/2023 N/A 43502-HYBW SKIN LESIONS, OVER 4 01/06/2023 N/A 94891- Debride <25 sq cm 02/10/2023 N/A Encounters Encounter Location Date Provider Diagnosis [facility] [address] [address] 06/23/2022 Kwadwo Hendricks [facility] [address] [address] 06/24/2022 Julieth Rosa [facility] [place] [address] 08/19/2022 Kwadwo Hendricsk [facility] [address] 08/19/2022 Kwadwoedmundo Schultzier [facility] [address] 09/20/2022 Kwadwo Ruthie [facility] [address] 09/20/2022 Kwadwoedmundo Schultzier [facility] [address] 09/20/2022 Kwadwoedmundo Hendricks Atherosclerosis of robinson artery of both lower extremities, with unspecified presence of clinical manifestation I70.203 ; Ingrowing nail L60.0 ; Tinea unguium B35.1 ; Pain in right toe(s) M79.674 and Pain in left toe(s) M79.675 [facility] [address] [address] 11/22/2022 Kwadwo Hendricks [address] [address] 11/25/2022 Kwadwo Hendricks 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 ; Pain in left toe(s) M79.675 ; Other hammer toe(s) (acquired), left foot M20.42 and Arthritis of joint of lesser toe, left M19.[address] [address] 11/29/2022 Julieth Rosa [facility] [address] 12/23/2022 Kwadwo Ruthie [address] [address] 01/06/2023 Kwadwo Ruthie Atherosclerosis of robinson artery of both lower extremities, with unspecified presence of clinical manifestation I70.203 ; Tinea unguium B35.1 ; Pain in right toe(s) M79.674 and Pain in left toe(s) M79.[address] [address] 01/06/2023 Kwadwo Hendricks [facility] [address] [facility] [address] [place] [address] 01/24/2023 Kwadwo Hendricks [address] [address] 01/25/2023 Josh Blanc [address] [address] 02/10/2023 Kwadwo Hendricks Skin ulcer of toe of left foot, limited to breakdown of skin L97.521 ; Pain in left toe(s) M79.675 ; Other hammer toe(s) (acquired), left foot M20.42 ; Arthritis of joint of lesser toe, left M19.072 and Other subluxation of left foot, initial encounter S93.332A [address] [address] 02/10/2023 Kwadwo Hendricks [address] [address] 04/03/2023 [facility] Ruthie [address] [address] 04/11/2023 Kwadwo Hendricks ASSESSMENTS Encounter Date Diagnosis Assessment Notes Treatment Notes Treatment Clinical Notes 09/20/2022 Ingrowing nail (ICD- 10 - L60.0) 09/20/2022 Atherosclerosis of robinson artery of both lower extremities, with unspecified presence of clinical manifestation (ICD-10 - I70.203) 11/25/2022 Non-pressure chronic ulcer of other part of left foot limited to breakdown of skin (ICD-10 - L97.521) 11/25/2022 Pain in left toe(s) (ICD-10 - M79.675) 01/06/2023 Tinea unguium (ICD-1 0 - B35.1) 01/06/2023 Atherosclerosis of robinson artery of both lower extremities, with unspecified [...] Name Order Date *Uric Acid, Serum 11/27/2020 41612-WLHOOXQ NAIL, 6 OR MORE 03/23/2021 69723-TVYHJWV NAIL, 6 OR MORE 11/23/2021 75497-WHAECAA NAIL, 6 OR MORE 09/20/2022 20715-MPJKRTT NAIL, 6 OR MORE 01/06/2023 52503-TSUMWYB NAIL, 6 OR MORE 12/02/2011 91500-IJAAFSP NAIL, 6 OR MORE 04/06/2012 60840-XPWOUXP NAIL, 6 OR MORE 07/10/2012 98001-GDELMVV NAIL, 6 OR MORE 10/10/2014 27959-TOUOPPN NAIL, 6 OR MORE 03/24/2015 77276-ZRWKIWM NAIL, 6 OR MORE 07/19/2016 00068-IQOERND NAIL, 6 OR MORE 01/10/2017 20091-QFOQNNT NAIL, 6 OR MORE 08/25/2017 89317-BSIALUD NAIL, 6 OR MORE 02/02/2018 55256-CBDWERV NAIL, 6 OR MORE 11/24/2017 21457-HDOIHQV NAIL, 6 OR MORE 08/07/2018 15119-TUNITOY NAIL, 6 OR MORE 04/16/2019 82966-FFAVYBS NAIL, 6 OR MORE 03/20/2020 98594-LJPSRUO NAIL, 6 OR MORE 09/08/2020 76227-OZPBXJA NAIL, 6 OR MORE 06/12/2020 69662-Lmkbmpkk Plate 06/12/2020 17572-Vmvasynr Plate 09/08/2020 46370-Wugkwsxm Plate 03/20/2020 67298-Qjtezpge Plate 04/16/2019 38014-Lxojaqge Plate 09/20/2022 79093-Bbmwcnrb Plate 11/23/2021 28125-Actwmedf Plate 03/23/2021 87832-Heapmqaj Plate Each Additional 67143-Qavpfioi Plate Each Additional 08284- Debride <25 sq cm 12/31/2021 82230- Debride <25 sq cm 11/25/2022 78199- Debride <25 sq cm 02/10/2023 89488- Debride <25 sq cm 03/24/2015 76675-YJIM SKIN LESIONS, OVER 4 01/07/20 23 73392-MOWV SKIN LESIONS, OVER 4 09/20/19 23 17473-ICET SKIN LESIONS, 2 TO 4 11/24/19 22 94321, K6295-WNWVZ/INJECT, JOINT/BURSA 0 09/08/2020 44330 - Tenotomy, open flexor 12/01/2017 Insurance Providers Payer Name Payer Address Payer Phone Subscriber Number Group Number Insured Name Patient Relationship to Insured Coverage Start Date Coverage End Date Medicare [employer] [address] [place] [address] [id number] Bella Henley Self - patient is the insured [facility] [address] [place] [phone] [id number] Bella Henley Self - patient is the insured MEDICAL (GENERAL) HISTORY Medical History History ICD Code back, hip, knee pain transfusions reflux measles chicken pox Anxiety disorder Peripheral neuropathy Surgical History Surgery Date(Month/Year) tonsillectomy appendectomy intestinal blockage 11/2013 Hospitalization History Reason Date(Month/Year[place] [facility] [place] [facility] - Gerd /IBS due to anxiety 01/2021,02/2021 Patient admitted to [facility] x 5 days; diverticulitis 12/2014
--- OUTSIDE RECORDS SUMMARY | 2023-05-15 14:07 | XMS_ITS | Patient Health Record ---
Author Name Unknown Organization [facility] Address [address] [place] [address] Care Team Providers Care Milled Lumber Grader Name Role Phone Nick Gomez Primary Care Provider UnavailAnatoliy Hernandez [phone] ALLERGIES Allergen (clinical drug ingredient) Drug/Non Drug [...] Notes Problem Rectal bleeding (K62.5) Active confirmed 63442747 Problem Diverticulitis of large intestine without perforation or abscess without bleeding (K57.32) Active confirmed 6577054 Problem History of adenomatous polyp of colon (Z86.010) Active confirmed 284646884 Problem Irritable bowel syndrome with diarrhea (K58.0) Active confirmed 554250466 Problem Irritable bowel syndrome without diarrhea (K58.9) Active confirmed 25371683 Problem Diverticulosis (K57.90) Active confirmed 567722040 Problem Gastroesophageal reflux disease without esophagitis (K21.9) Active confirmed 679427839 Problem Heme + stool (R19.5) Active confirmed 45493745 Problem Hiatal hernia (K44.9) Active confirmed Hiatal hernia (92452436) Problem GERD (gastroesophageal reflux disease) (K21.9) Active confirmed Gastroesophagea l reflux disease (576794931) Problem Abnormal CT scan, sigmoid colon (R93.3) Active confirmed 970773073 Problem Irritable bowel syndrome with constipation (K58.1) Active confirmed 898456265 Problem Irritable bowel syndrome with both constipation and diarrhea (K58.2) Active confirmed 74395121 Problem LLQ abdominal pain (R10.32) Active confirmed 374005111 Problem Gastroesophageal reflux disease, unspecified whether esophagitis present (K21.9) Active confirmed 012476005 Encounters Encounter Location Date Provider Diagnosis [facility] [place] [facility] [address] [place], [place] [phone] 01/09/2023 Anatoliy Cowan [facility] [address] [place] [address] 12/07/2022 Anatoliy Escobar Heme + stool R19.5 ; LLQ abdominal pain R10.32 ; Gastroesophageal reflux disease, unspecified whether esophagitis present K21.9 ; History of adenomatous polyp of colon Z86.010 and Irritable bowel syndrome with constipation K58.1 [facility] [address] [place] [address] 06/02/2022 Anatoliy Escobar [facility] [address] [place] [address] 06/06/2022 Anatoliy Escobar [facility] [address] [place] [address] 07/25/[address] [facility] [address] [place] [address] 08/01/2022 Anatoliy Cowan [facility] [address] [place] [address] 08/12/2022 Anatoliy Escobar [facility] [address] [place] [address] 08/16/2022 Anatoliy Escobar [facility] [address] [place] [address] 08/30/[address] [facility] [address] [place] [address] 09/20/2022 Anatoliy Cowan [facility] [address] [place] [address] 09/26/2022 Anatoliy Escobar [facility] [address] [place] [address] 09/28/2022 Anatoliy Escobar [facility] [address] [place] [address] 10/25/2022 Anatoliy Escobar [facility] [address] [place] [address] 11/25/2022 Anatoliy Cowan [facility] [address] [place] [address] 11/30/2022 [facility] [address] [place] [address] 12/12/2022 Anatoliy Escobar [facility] [address] [place] [address] 12/13/[address] [facility] [address] [place] [address] 12/20/2022 Anatoliy Cowan [facility] [address] [place] [address] 12/26/[address] [facility] [address] [place] [address] 01/02/[address] [facility] [address] [place] [address] 01/03/[address] [facility] [address] [place] [address] 01/09/2023 [facility] [address] [place] [address] 02/17/[address] [facility] [address] [place] [address] 02/20/[address] [facility] [address] [place] [address] 02/24/2023 Anatoliy Escobar ASSESSMENTS Encounter Date Diagnosis [...] OF [place] [address] [place] [address] [id number] VIKAS KNIGHT Self - patient is the insured [facility] [address] [place] [address] [id number] VIKAS KNIGHT Self - patient is the insured MEDICAL (GENERAL) HISTORY Medical History History ICD Code Colon and EGD 06-07-2007--no polyps, but diverticulosis; hiatal hernia GERD--EGD in September of 2012 with the finding of a minimal hiatal hernia and gastritis, with biopsies negative for H. pylori and negative for Aldana's esophagus Personal history of colon polyps-tubular adenomas removed in 2003 and 09/[address],DM,CVA,renal disease COPD Colonoscopy 09/2012-small tub ular adenomas removed, mild sigmoid diverticulosis, and small internal hemorrhoids Diverticulitis--Spring 2014 at [facility]--salty parag with IV antibiotics Colonoscopy 10/2014 at [facility]---diverticulos is, nonspecific inflammation EGD 09/2014 at [facility] --HH, mild reflux Colonoscopy 06/2019-1 tubular adenoma re moved, diverticulosis EGD 06/2019 small HH, gastritis, neg Hpy carmen, normal duodenal biopsies IBS with constipation/diarrhea vertigo Surgical History Surgery Date(Month/Year) appendectomy tonsillectomy D&C SBO - Surgery with Dr. Roger at [facility] 11/2013
[2023-05-15 14:10] VITALS: BP 130/68; PULSE 84; O2SAT 97; BMI 26.5
== END 2023-05-15 14:40 | disposition home or self-care (01) ==
PROVIDERS: PCP Physician Assistant; Visit Provider Nurse Practitioner Family
DX: S16.1XXA Strain of muscle, fascia and tendon at neck level, initial encounter (principal); K21.9 Gastro-esophageal reflux disease without esophagitis; S32.591S Other specified fracture of right pubis, sequela; I10 Essential (primary) hypertension
CPT/HCPCS: 99214

== ENCOUNTER 2023-05-25 13:55 | Outpatient (AMB) | payer MEDICARE, OTHER, SELFPAY ==
[2023-05-25 14:06] VITALS: BP 142/80; PULSE 82; O2SAT 95; BMI 26.5
--- NOTE | 2023-05-25 14:06 | MHC.PC.OV ---
Vital Signs 05/25/23 14:06 05/25/23 14:46 Height 5 ft 6 in Weight 164 lb BMI 26.5 BP 142/80 H 130/68 Blood Pressure Location Lt brachial Position Sitting Pulse 82 Pulse Source Pulse Oximeter Pulse Oximetry (%) 95 Oxygen Delivery Method Room Air Intake Visit Reasons: fatigue, high BP Allergies buspirone Allergy (Intermediate, Verified 05/25/23 14:32) Rash Sulfa (Sulfonamide Antibiotics) Allergy (Intermediate, Verified 05/25/23 14:32) RASH amoxicillin [From AUGMENTIN] Allergy (Unknown, Verified 05/25/23 14:32) PER H&P clavulanic acid [From AUGMENTIN] Allergy (Unknown, Verified 05/25/23 14:32) PER H&P garlic [GARLIC] Allergy (Unknown, Verified 05/25/23 14:32) PER H&P metronidazole [From FLAGYL] Allergy (Unknown, Verified 05/25/23 14:32) OCULAR MIGRAINES penicillamine Allergy (Unknown, Verified 05/25/23 14:32) Unknown ciprofloxacin Adverse Reaction (Intermediate, Verified 05/25/23 14:32) neuropathic pain lisinopril Adverse Reaction (Intermediate, Verified 05/25/23 14:32) Cough nitrofurantoin Adverse Reaction (Mild, Verified 05/25/23 14:32) GI side effects environmental Allergy (Unknown, Uncoded 05/25/23 14:06) Unknown flagyl Allergy (Unknown, Uncoded 05/25/23 14:06) Unknown From KEFLEX Allergy (Unknown, Uncoded 05/25/23 14:06) RASH Metoprolol Tartrate Allergy (Unknown, Uncoded 05/25/23 14:06) Unknown Sulfacet-R Allergy (Unknown, Uncoded 05/25/23 14:06) Unknown Tobacco use date assessed: 05/15/23 Fall risk assessment: No Falls in past year Last assessed Fall Risk: 05/25/23 Dental Screening Dental Screen Date: 05/25/23 Did you have a dental visit in the last 12 months?: No Did you have a dental problem in the last 6 months where you did not have access to dental care?: No Was dental information given to patient?: No HPI fatigue, high BP HPI Details Patient is an 82-year-old female here today for problem visit. Patient has a past medical history significant for generalized anxiety disorder, hypertension, aortic stenosis. She reports over the last several weeks feeling intermittent episodes of cold, clamminess and hot flashes. Also has been having right-sided neck pain and spasms intermittently and is concerned about this. Otherwise repeat blood pressure reading today much improved. [facility] Medical History Neuropathy Arthritis GERD (gastroesophageal reflux disease) HTN (hypertension) Diverticulitis Anxiety Irritable bowel Heart murmur Surgical History Hx of esophagogastroduodenoscopy Hx of colonoscopy History of tonsillectomy History of appendectomy Family History Father No problems noted. Mother No problems noted. Social History Household Members: Children Housing: House Are you a primary healthcare liaison to a significant other at home: No Do you presently have visiting nurse or other home services: No Alcohol intake: never Patient Tobacco Use Status: Former Tobacco user Quit Date: 2013 Tobacco use type: Cigarette e-Cigarette/Vaping Use: Never Used Second Hand Smoke Exposure: No Advance Directives Date on File: 11/21/22 service: No Current occupational status: retired Cognitive needs: No Hearing needs: No Vision needs: Yes (glasses) Questionnaire PHQ-9 Over the last 2 weeks, how often have you been bothered by any of the following problems? 1. Little interest or pleasure in doing things: several days 2. Feeling down, depressed, or hopeless: nearly every day 3. Trouble falling or staying asleep, or sleeping too much: not at all 4. Feeling tired or having little energy: several days 5. Poor appetite or overeating: several days 6. Feeling bad about yourself - or that you are a failure or have let yourself or your family down: not at all 7. Trouble concentrating on things, such as reading the newspaper or watching television: not at all 8. Moving or speaking so slowly that other people could have noticed. Or the opposite - being so fidgety or restless that you have been moving around a lot more than usual: not at all 9. Thoughts that you would be better off or of hurting yourself in some way: not at all Total score: 6 Depression Screening Interpretation: Positive 04448 - PHQ-9 Billing: Yes Source: Developed by Drs. Anatoliy Gavin, Peyton Hunt, Austyn Weber and colleagues, with an educational kentrell from [employer]. Thrive Questionnaire Date Thrive assessed: 01/23/23 AUDIT C Alcohol Use Questionnaire (AUDIT-C) 1. How often do you have a drink containing alcohol?: Never 3. How often do you have six or more drinks on one occasion?: Never Total Score: 0 PAIGE-7 AMB Questionnaire PAIGE-7 Date PAIGE - 7 assessed: 10/06/22 Source: Developed by Drs. Anatoliy Gavin, Peyton Hunt, Austyn Weber and colleagues, with an educational kentrell from [employer]. Review of Systems Const Denies headache(s) Eyes Denies loss of vision ENT Denies vertigo, Denies dizziness, Denies headache(s) and Denies sore throat Card Denies chest pain, Denies leg edema and Denies lightheadedness Resp Denies cough, Denies hemoptysis and Denies wheezing GI Denies abdominal pain, Denies melena, Denies constipation, Denies diarrhea and Denies vomiting Denies urinary frequency, Denies dysuria and Denies urinary urgency Musc Denies arthralgias, Denies joint swelling, Denies numbness and Denies tingling Neuro Denies Abnormal speech present, Denies behavioral changes, Denies vertigo, Denies dizziness, Denies headache(s), Denies loss of vision, Denies memory loss, Denies numbness and Denies tingling Psych Denies anxiety, Denies behavioral changes, Denies depression, Denies memory loss and Denies panic attacks Pradip/Lymph Denies easy bleeding and Denies easy bruising Aller/Immun Denies wheezing Physical exam (Primary Care) Vital Signs: Last Vital Signs Pulse 82 05/25/23 14:06 BP 142/80 H 05/25/23 14:06 Pulse Ox 95 05/25/23 14:06 Oxygen Delivery Method Room Air 05/25/23 14:06 BMI result Body Mass Index 26.5 Tobacco/Smoking Status: Tobacco use Status Tobacco use date assessed 05/15/23 05/25/23 14:07 Patient Tobacco Use Status Former Tobacco user 05/25/23 14:07 Tobacco use type Cigarette 05/25/23 14:07 e-Cigarette/Vaping Use Never Used 05/25/23 14:07 PHQ-9: PHQ-9 Score PHQ-9: Total score 6 05/25/23 14:07 Depression Screening Interpretation: Positive Thrive Assessment: Date of Thrive Assessment Date Thrive assessed 01/23/23 05/25/23 14:07 Const General: healthy appearing, no acute distress, alert and awake Nutritional Appearance: well nourished Orientation/consciousness: oriented to person, oriented to place and oriented to time HENMT Other: NECK NOTED TO BE IN FORWARD SLOUCHING POSITION Ears: TM's normal bilaterally General nose exam: Normal nasal mucous membranes and turbinates present Eyes Conjunctivae: conjunctivae normal Sclerae: sclerae normal Pupils: Equal, round and reactive pupils present Neck Neck: Yes no lymphadenopathy and Yes no JVD Thyroid: Thyroid normal Carotids: no bruits Resp Effort & Inspection: normal respiratory effort and not tachypneic Auscultation: no crackles, no rales, no rhonchi and no wheezes Cardio Rate: regular rate Rhythm: regular rhythm Heart sounds: no murmurs and normal S1 and S2 GI Palpation (GI): Soft to palpation, nontender, no hepatomegaly and no splenomegaly Auscultation: normal bowel sounds Skin General skin exam: no rashes or lesions noted and dry skin Neuro General: oriented to person, oriented to place and oriented to time Cranial nerves: Yes Equal, round and reactive pupils present Speech: No Abnormal speech present Gait exam (Neuro): Normal gait present Motor exam (neuro): no tremor noted Extrem Right upper extremity: full ROM Left upper extremity: full ROM Right lower extremity: full ROM; no edema Left lower extremity: full ROM; no edema Psych Mental Status: mental status grossly normal Speech and movement: Normal speech and movement present Affect: normal affect Attitude: cooperative Thought process: Normal thought process present Assessment and Plan Assessment & Plan (1) Anemia: Code(s): D64.9 - Anemia, unspecified Qualifiers: Anemia type: iron deficiency Iron deficiency anemia type: unspecified iron deficiency Qualified Code(s): D50.9 - Iron deficiency anemia, unspecified Plan: Have noted a chronic anemia on labs. Likely anemia of chronic disease (aortic stenosis). Most recent hemoglobin at 9. Will recheck CBC, iron and B12 (2) HTN (hypertension): Code(s): I10 - Essential (primary) hypertension Qualifiers: Hypertension type: primary hypertension Qualified Code(s): I10 - Essential (primary) hypertension Plan: Blood pressure acceptable today in office. Will continue her current dose of antihypertensive medication with goal blood pressure to remain below 140/90 (3) Neck muscle spasm: Code(s): M62.838 - Other muscle spasm Plan: Reports having intermittent right-sided neck spasms. Etiology to this is unclear though likely secondary to her recent falls and head injuries. Will get x-ray of soft tissue neck and cervical spine. Likely will benefit from some physical therapy of her cervical spine as she does have a slouched posture. Orders: Orders Complete Blood Count no Diff Today D50.9 - Iron deficiency anemia, unspecified Basic Metabolic Panel Today D50.9 - Iron deficiency anemia, unspecified XR soft tissue neck Today M62.838 - Other muscle spasm IRON PROFILE Today D50.9 - Iron deficiency anemia, unspecified Vitamin B12 and Folate Today D50.9 - Iron deficiency anemia, unspecified, E53.8 - Deficiency of other specified B group vitamins XR cervical spine 4V Today M62.838 - Other muscle spasm PT Evaluation and Treatment Today M62.838 - Other muscle spasm Coding Level of Care Code Est Pt Level 4 (55019) Diagnoses Iron deficiency anemia, unspecified iron deficiency anemia type D50.9 Anemia type: iron deficiency Iron deficiency anemia type: unspecified iron deficiency Primary hypertension I10 Hypertension type: primary hypertension Neck muscle spasm M62.838
[2023-05-25 14:46] VITALS: BP 130/68
== END 2023-05-25 14:54 | disposition home or self-care (01) ==
PROVIDERS: PCP Physician Assistant; Visit Provider Physician Assistant
DX: D50.9 Iron deficiency anemia, unspecified (principal); I10 Essential (primary) hypertension; M62.838 Other muscle spasm
CPT/HCPCS: 99214

== ENCOUNTER 2023-05-25 15:02 | Outpatient (REF) | payer MEDICARE, OTHER, SELFPAY ==
--- NOTE | ~2023-05-25 | XR_ITS ---
EXAMINATION: XR CERVICAL SPINE, 5 VIEWS XR SOFT TISSUE NECK, 3 VIEWS CLINICAL INFORMATION: Muscle spasm COMPARISON: None available. TECHNIQUE: 5 views of the cervical spine 3 views of the soft tissue neck FINDINGS: No acute visible fracture or dislocation. Slight exaggeration of the normal cervical lordosis. Bilateral C3-C4 neuroforaminal narrowing. Very slight grade 1 retrolisthesis of C2 on C3. Mild multilevel degenerative changes with disc space narrowing, osteophyte formation, facet arthropathy. Visualized dens is intact. Lateral masses are symmetric. Vertebral body heights and disc spaces are maintained. Prevertebral soft tissues prominence along C6, nonspecific. Posterior elements are intact. Paraspinal soft tissues are unremarkable. Visualized portions of the upper chest demonstrate emphysematous changes and atherosclerotic calcifications of the aortic arch/bulb. XR/XR cervical spine 4V IMPRESSION: 1. No acute visible fracture or dislocation. 2. Slight exaggeration of the normal cervical lordosis. 3. Bilateral C3-C4 neuroforaminal narrowing. 4. Very slight grade 1 retrolisthesis of C2 on C3. 5. Mild multilevel degenerative changes. 6. Prevertebral soft tissues prominence along C6, nonspecific.
--- NOTE | ~2023-05-25 | XR_ITS ---
EXAMINATION: XR CERVICAL SPINE, 5 VIEWS XR SOFT TISSUE NECK, 3 VIEWS CLINICAL INFORMATION: Muscle spasm COMPARISON: None available. TECHNIQUE: 5 views of the cervical spine 3 views of the soft tissue neck FINDINGS: No acute visible fracture or dislocation. Slight exaggeration of the normal cervical lordosis. Bilateral C3-C4 neuroforaminal narrowing. Very slight grade 1 retrolisthesis of C2 on C3. Mild multilevel degenerative changes with disc space narrowing, osteophyte formation, facet arthropathy. Visualized dens is intact. Lateral masses are symmetric. Vertebral body heights and disc spaces are maintained. Prevertebral soft tissues prominence along C6, nonspecific. Posterior elements are intact. Paraspinal soft tissues are unremarkable. Visualized portions of the upper chest demonstrate emphysematous changes and atherosclerotic calcifications of the aortic arch/bulb. XR/XR soft tissue neck IMPRESSION: 1. No acute visible fracture or dislocation. 2. Slight exaggeration of the normal cervical lordosis. 3. Bilateral C3-C4 neuroforaminal narrowing. 4. Very slight grade 1 retrolisthesis of C2 on C3. 5. Mild multilevel degenerative changes. 6. Prevertebral soft tissues prominence along C6, nonspecific.
[2023-05-25 15:26] LABS: PLT CLUMP 1
[2023-05-25 15:28] LABS: Hematocrit 32.6 % (37.0-47.0); Hemoglobin 10.6 g/dl (12.0-16.0); Mean Corpuscular HGB Conc 32.5 g/dl (31.0-35.0); Mean Corpuscular Hemoglobin 30.2 pg (27.0-33.0); Mean Corpuscular Volume 92.9 fL (80.0-98.0); Mean Platelet Volume 11.5 fL (9.4-12.3); Red Blood Count 3.51 X10*6/uL (4.20-5.50); Red Cell Distribution Width 13.8 % (11.0-16.0)
[2023-05-25 15:33] LABS: Platelet Count 131 X10*3/uL (160-400); White Blood Count 4.4 X10*3/uL (4.8-10.8)
[2023-05-25 17:02] LABS: Anion Gap 11 (12-20); Blood Urea Nitrogen 15 mg/dL (9-16); Carbon Dioxide 30 mmol/L (22-29); Chloride 103 mmol/L (96-108); Estimated Glomerular Filt Rate > 60; Glucose Random 96 mg/dL (60-115); Iron 54 mcg/dL (30-160); Percent Iron Saturation 20 % (15-50); Potassium 3.9 mmol/L (3.3-5.1); Sodium 140 mmol/L (135-145); Total Iron Binding Capacity 268 mcg/dL (228-428); Unsaturated Iron Binding 214 ug/dL
[2023-05-25 17:32] LABS: Folate 8.7 ng/mL (> or = 4.0); Vitamin B12 1446 pg/mL (200-900)
== END 2023-05-25 15:03 | disposition home or self-care (01) ==
LOC: HO.LAB 15:02
PROVIDERS: PCP Physician Assistant; Visit Provider Physician Assistant
DX: D50.9 Iron deficiency anemia, unspecified (principal); E53.8 Deficiency of other specified B group vitamins; M62.838 Other muscle spasm
CPT/HCPCS: 36415; 70360; 72050; 80048; 82607; 82746; 83540; 85027

== ENCOUNTER 2023-05-31 18:58 | Emergency (ER) | payer MEDICARE, OTHER, SELFPAY ==
--- NOTE | ~2023-05-31 | XR_ITS ---
EXAMINATION: XR CHEST CLINICAL INFORMATION: Chest pain. COMPARISON: 02/04/2023. TECHNIQUE: Frontal view of the chest was obtained. FINDINGS: The cardiomediastinal silhouette is normal. There is no focal lung consolidation or pleural effusion. The bony structures and soft tissues are unremarkable. XR/XR chest 1V IMPRESSION: No active cardiopulmonary disease.
--- NOTE | 2023-05-31 19:04 | ECG_ITS ---
Test Reason : CHEST PAIN Blood Pressure : / mmHG Vent. Rate : 103 BPM Atrial Rate : 103 BPM P-R Int : 200 ms QRS Dur : 088 ms QT Int : 354 ms P-R-T Axes : 049 -05 036 degrees QTc Int : 463 ms Sinus tachycardia Septal infarct , age undetermined Cannot rule out Inferior infarct , age undetermined Abnormal ECG When compared with ECG of 01-MAR-2023 00:30, No significant change was found Referred By: Lauren Stout Electronically Signed By:PEPE PAIGE
--- NOTE | 2023-05-31 19:09 | ED_ITS ---
HPI - Chest Pain General Chief Complaint: Chest Pain Stated Complaint: chest pains Time Seen by Provider: 05/31/23 19:27 Source: patient Mode of arrival: ambulatory Limitations: no limitations History of Present Illness HPI narrative: Patient is 82 years old with history of anxiety hypertension aortic stenosis with valve area 1.3sq2 in the echo done last year comes here for mid chest pain for last 4 days off and on lasting for half an hour mostly happens in the sleep and she wakes up does not feel her anxiety is the cause no shortness of breath no syncope Related Data Home Medications Medication Instructions Recorded Confirmed acetaminophen 500 mg tablet 1,000 mg PO Q6H PRN Pain 03/28/23 04/17/23 alprazolam 0.25 mg tablet 0.25 mg PO BID PRN Anxiety 03/28/23 04/17/23 celecoxib 200 mg capsule 200 mg PO BID 03/28/23 04/17/23 citalopram 10 mg tablet 10 mg PO BEDTIME 03/28/23 04/17/23 docusate sodium 100 mg capsule 100 mg PO BID 03/28/23 04/17/23 fexofenadine 180 mg tablet 180 mg PO DAILY PRN Allergic 03/28/23 04/17/23 Symptoms ondansetron HCl 4 mg tablet 4 mg PO Q8H PRN Nausea 03/28/23 04/17/23 polyethylene glycol 3350 17 gram 17 g PO DAILY PRN Constipation 03/28/23 04/17/23 oral powder packet Previous Rx's Medication Instructions Recorded cholecalciferol (vitamin D3) 50 50 mcg PO DAILY #30 tabs 03/31/23 mcg (2,000 unit) tablet fluticasone propionate 50 2 spray intranasal DAILY #16 grams 03/31/23 mcg/actuation nasal spray,suspension losartan 25 mg tablet 25 mg PO DAILY #30 tabs 03/31/23 melatonin 3 mg tablet 3 mg PO BEDTIME #30 tabs 03/31/23 aluminum-mag hydroxide-simethicone 5 ml PO Q6H PRN dyspepsia #355 mL 04/21/23 200 mg-200 mg-20 mg/5 mL oral susp (Maalox Advanced) sucralfate 1 gram tablet 1 g PO QIDACHS 5 days #20 tabs 04/22/23 pantoprazole 40 mg tablet,delayed 40 mg PO DAILY@0630 #90 tabs 05/10/23 release diclofenac sodium 1 % topical gel 2 g topical QID #100 grams 05/11/23 (Arthritis Pain (diclofenac)) cyanocobalamin (vitamin B-12) 1,000 mcg PO DAILY #30 tabs 05/22/23 1,000 mcg tablet (Vitamin B-12) Allergies Allergy/AdvReac Type Severity Reaction Status Date / Time buspirone Allergy Intermediate Rash Verified 05/25/23 14:32 Sulfa (Sulfonamide Allergy Intermediate RASH Verified 05/25/23 14:32 Antibiotics) amoxicillin [From AUGMENTIN] Allergy Unknown PER H&P Verified 05/25/23 14:32 clavulanic acid Allergy Unknown PER H&P Verified 05/25/23 14:32 [From AUGMENTIN] garlic [GARLIC] Allergy Unknown PER H&P Verified 05/25/23 14:32 metronidazole [From FLAGYL] Allergy Unknown OCULAR Verified 05/25/23 14:32 MIGRAINES penicillamine Allergy Unknown Unknown Verified 05/25/23 14:32 ciprofloxacin AdvReac Intermediate neuropathic Verified 05/25/23 14:32 pain lisinopril AdvReac Intermediate Cough Verified 05/25/23 14:32 nitrofurantoin AdvReac Mild GI side Verified 05/25/23 14:32 effects environmental Allergy Unknown Unknown Uncoded 05/25/23 14:06 flagyl Allergy Unknown Unknown Uncoded 05/25/23 14:06 From KEFLEX Allergy Unknown RASH Uncoded 05/25/23 14:06 Metoprolol Tartrate Allergy Unknown Unknown Uncoded 05/25/23 14:06 Sulfacet-R Allergy Unknown Unknown Uncoded 05/25/23 14:06 Review of Systems 2 Review of Systems: Yes all other systems are reviewed and are negative [facility] Past Medical History Medical History Neuropathy Arthritis GERD (gastroesophageal reflux disease) HTN (hypertension) Diverticulitis Anxiety Irritable bowel Heart murmur Surgical History Hx of esophagogastroduodenoscopy Hx of colonoscopy History of tonsillectomy History of appendectomy Family History Family History Father No problems noted. Mother No problems noted. Social History Social History Household Members: Children Housing: House Are you a primary child care lead teacher to a significant other at home: No Do you presently have visiting nurse or other home services: No Alcohol intake: never Patient Tobacco Use Status: Former Tobacco user Quit Date: 2013 Tobacco use type: Cigarette Smoked in Last 30 Days: No e-Cigarette/Vaping Use: Never Used Second Hand Smoke Exposure: No Use of substances other than those prescribed or required for medical reasons: No Advance Directives: No Advance Directives Information Provided: No Advance Directives Date on File: 11/21/22 service: No Current occupational status: retired Cognitive needs: No Hearing needs: No Vision needs: Yes (glasses) Physical Exam 2 Vital Signs: Vital Signs: Last Vital Signs Temp 98.4 F 05/31/23 19:44 Pulse 88 05/31/23 22:55 Resp 16 05/31/23 22:55 BP 144/84 H 05/31/23 22:55 Pulse Ox 98 05/31/23 22:55 O2 Del Method Room Air 05/31/23 22:55 BMI result Body Mass Index 26.1 Appearance: Alert. Oriented X3. No acute distress. Eyes: PERRLA, No Nystagmus ENT: Pharynx normal. Oral Mucosa moist Neck: Normal inspection. Neck supple. CVS: Normal heart rate and rhythm. Pulses normal. Systolic ejection 4/6 murmur at the base Respiratory: No respiratory distress. Equal air entry bilateral, no wheezing/rales/rhonchi Abdomen: Soft and nontender. Bowel sounds are present, no mass palpable, no CVA tenderness Skin: Skin warm and dry. Normal skin color. Normal skin turgor. Extremities: No lower extremity edema. No calf tenderness Neuro: Oriented X 3. No motor deficit. No sensory deficit.No cerebellar signs , cranial nerves II-XII intact Course Course Course Narrative: RME: 82 yo F presenting with chest pain radiating to LUE w/ associated sweats/chills x4 days. No N/V, SOB. Labs, trop, ekg, CXR ordered. Full HPI, ROS and PE to be performed by primary ED provider. Medications Administered Discontinued Medications Generic Name Dose Route Start Last Admin Trade Name Freq PRN Reason Stop Dose Admin Alprazolam 0.25 mg 05/31/23 20:27 05/31/23 21:16 Alprazolam 0.25 Mg Tablet PO 05/31/23 20:28 0.25 mg ONCE ONE Administration Medical Decision Making Medical Decision Making [facility] Narrative: Patient typical chest pain for few days troponin negative EKG nonischemic HEENT history of same patient been seen in the past due to anxiety plan to have echocardiogram done next week. Patient felt better after her pressures all discharge patient Differential Diagnosis Differential Diagnoses: The differential diagnosis associated with the presentation includes ACS/NSTEMI/anxiety Lab Data [facility] Lab Attestation statement: I reviewed the patient's lab results. 05/31/23 19:30 05/31/23 19:30 Labs: Lab Results 05/31/23 Range/Units 19:30 WBC 3.4 L (4.8-10.8) X10*3/uL RBC 3.52 L (4.20-5.50) X10*6/uL Hgb 10.7 L (12.0-16.0) g/dl Hct 33.1 L (37.0-47.0) % MCV 94.0 (80.0-98.0) fL MCH 30.4 (27.0-33.0) pg MCHC 32.3 (31.0-35.0) g/dl RDW 13.8 (11.0-16.0) % Plt Count 123 L (160-400) X10*3/uL MPV 11.6 (9.4-12.3) fL Immature Gran % (Auto) 0.3 (0.0-0.4) % Neut % (Auto) 68.4 (45-73) % Lymph % (Auto) 21.2 (20-40) % [place] % (Auto) 7.1 (2-11) % Eos % (Auto) 2.4 (0-4) % Baso % (Auto) 0.6 (0-2) % Lymph # (Auto) 0.7 L (1.2-4.9) X10*3/uL [place] # (Auto) 0.2 (0.1-1.2) X10*3/uL Eos # (Auto) 0.1 (0.0-0.4) X10*3/uL Baso # (Auto) 0.0 (0.0-0.2) X10*3/uL Abs Immat Gran (auto) 0.01 (0.00-0.03) X10*3/uL Absolute Neuts (auto) 2.3 (2.0-8.3) x10*3/uL Absolute Nucleated RBC 0.000 (0.0-0.012) X10*3/uL Nucleated RBC % (auto) 0.0 (0.0-0.2) /100WBC PT 12.2 (11.1-13.3) SEC INR 1.0 (0.9-1.1) Sodium 142 (135-145) mmol/L Potassium 4.8 D (3.3-5.1) mmol/L Chloride 104 (96-108) mmol/L Carbon Dioxide 29 (22-29) mmol/L Anion Gap 14 (12-20) BUN 20 H (9-16) mg/dL Creatinine 0.87 (0.5-1.4) mg/dL Estim Creat Clear Calc 51.1 Estimated GFR > 60 Random Glucose 116 H (60-115) mg/dL Calcium 10.0 (8.4-10.2) mg/dL Magnesium 2.0 (1.6-2.6) mg/dL Total Bilirubin 0.4 (0.0-1.0) mg/dL Direct Bilirubin 0.1 (0.0-0.5) mg/dL AST 16 (5-31) U/L ALT 8 (0-31) U/L Alkaline Phosphatase 143 H (39-117) U/L Troponin I High Sens 3.6 (<3.5-17.0) ng/L B-Natriuretic Peptide 116 H (<100) pg/mL Total Protein 7.4 (6.5-8.0) g/dL Albumin 4.2 (3.5-5.0) g/dL Lipase 20 (8-78) U/L Independent Interpretation I performed an independent interpretation of an: EKG Interpretation: Sinus tachycardia with heart rate of 103 poor progression of R-wave no acute ST- T changes no acute ischemia no change from the previous EKG Discharge Plan Discharge Clinical Impression: Anxiety, Chest pain Patient Disposition: Home, Self-Care Instructions: Chest Pain (ED), Anxiety (ED) Additional Instructions: Take medication as prescribed and follow-up with physical optics teacher as scheduled Prescriptions: No Action sucralfate 1 gram tablet 1 g PO QIDACHS 5 Days Qty: 20 0RF pantoprazole 40 mg tablet,delayed release (DR/EC) 40 mg PO DAILY@0630 Qty: 90 1RF cyanocobalamin (vitamin B-12) [Vitamin B-12] 1,000 mcg tablet 1,000 mcg PO DAILY Qty: 30 3RF celecoxib 200 mg capsule 200 mg PO BID polyethylene glycol 3350 17 gram powder in packet 17 g PO DAILY PRN (Reason: Constipation) citalopram 10 mg tablet 10 mg PO BEDTIME ondansetron HCl 4 mg tablet 4 mg PO Q8H PRN (Reason: Nausea) alprazolam 0.25 mg tablet 0.25 mg PO BID PRN (Reason: Anxiety) docusate sodium 100 mg capsule 100 mg PO BID fexofenadine [Laurel] 180 mg Tablet 180 mg PO DAILY PRN (Reason: Allergic Symptoms) acetaminophen 500 mg Tablet 1,000 mg PO Q6H PRN (Reason: Pain) losartan 25 mg tablet 25 mg PO DAILY Qty: 30 3RF fluticasone propionate 50 mcg/actuation spray,suspension 2 spray intranasal DAILY Qty: 16 0RF cholecalciferol (vitamin D3) 50 mcg (2,000 unit) tablet 50 mcg PO DAILY Qty: 30 3RF melatonin 3 mg tablet 3 mg PO BEDTIME Qty: 30 0RF alum-mag hydroxide-simeth [Maalox Advanced] 200-200-20 mg/5 mL suspension 5 ml PO Q6H PRN (Reason: dyspepsia) Qty: 355 0RF diclofenac sodium [Arthritis Pain (diclofenac)] 1 % gel 2 g topical QID Qty: 100 0RF Rx Instructions: apply to side of neck Interventions: ED Discharge Assessment Last Done: 05/31/23 23:11 Discharge Date/Time: 05/31/23 22:55
[2023-05-31 19:12] VITALS: BP 164/100; PULSE 103; RESP 16; TEMP 36.7; O2SAT 97; BMI 26.1
--- NOTE | 2023-05-31 19:16 | PC.NURSE ---
pt hypertensive with chest pain, provider and charge nurse barry sharma. Will continue to monitor.
[2023-05-31 19:38] LABS: MANUAL DIFF FLAG NO
[2023-05-31 19:44] VITALS: BP 148/88; PULSE 99; RESP 15; TEMP 36.9; O2SAT 97
[2023-05-31 19:44] LABS: Prothrombin Time 12.2 SEC (11.1-13.3)
[2023-05-31 19:56] LABS: Alanine Aminotransferase 8 U/L (0-31); Albumin Level 4.2 g/dL (3.5-5.0); Alkaline Phosphatase 143 U/L (39-117); Anion Gap 14 (12-20); Aspartate Amino Transferase 16 U/L (5-31); Bilirubin Direct 0.1 mg/dL (0.0-0.5); Bilirubin Total 0.4 mg/dL (0.0-1.0); Blood Urea Nitrogen 20 mg/dL (9-16); Carbon Dioxide 29 mmol/L (22-29); Chloride 104 mmol/L (96-108); Creatinine Clr Calc Pharmacy 51.1; Estimated Glomerular Filt Rate > 60; Glucose Random 116 mg/dL (60-115); Lipase 20 U/L (8-78); Potassium 4.8 mmol/L (3.3-5.1); Sodium 142 mmol/L (135-145); Total Protein 7.4 g/dL (6.5-8.0)
[2023-05-31 19:58] LABS: Basophils Percent Auto 0.6 % (0-2); Eosinophils Absolute Auto 0.1 X10*3/uL (0.0-0.4); Eosinophils Percent Auto 2.4 % (0-4); Hematocrit 33.1 % (37.0-47.0); Hemoglobin 10.7 g/dl (12.0-16.0); Imm Gran Abs Auto 0.01 X10*3/uL (0.00-0.03); Imm Gran Pct Auto 0.3 % (0.0-0.4); Lymphocytes Absolute Auto 0.7 X10*3/uL (1.2-4.9); Lymphocytes Percent Auto 21.2 % (20-40); Mean Corpuscular HGB Conc 32.3 g/dl (31.0-35.0); Mean Corpuscular Hemoglobin 30.4 pg (27.0-33.0); Mean Platelet Volume 11.6 fL (9.4-12.3); Monocytes Absolute Auto 0.2 X10*3/uL (0.1-1.2); Monocytes Percent Auto 7.1 % (2-11); Neutrophils Absolute Auto 2.3 x10*3/uL (2.0-8.3); Neutrophils Percent Auto 68.4 % (45-73); Platelet Count 123 X10*3/uL (160-400); Red Blood Count 3.52 X10*6/uL (4.20-5.50); Red Cell Distribution Width 13.8 % (11.0-16.0); White Blood Count 3.4 X10*3/uL (4.8-10.8)
[2023-05-31 19:59] LABS: B Type Natriuretic Peptide 116 pg/mL (<100)
[2023-05-31 20:03] LABS: Troponin-I High Sensitivity 3.6 ng/L (<3.5-17.0)
[2023-05-31] MEDS: ALPRAZolam 0.25 MG TABLET PO (21:16)
[2023-05-31 21:45] VITALS: BP 134/101; PULSE 88; RESP 16; O2SAT 97
[2023-05-31 22:55] VITALS: BP 144/84; PULSE 88; RESP 16; O2SAT 98
== END 2023-05-31 22:55 | disposition home or self-care (01) ==
PROVIDERS: Physician Assistant; Emergency Provider Internal Medicine; PCP Physician Assistant
DX: R07.89 Other chest pain (principal); F41.1 Generalized anxiety disorder; F43.0 Acute stress reaction; Z87.891 Personal history of nicotine dependence; Z79.899 Other long term (current) drug therapy
CPT/HCPCS: 36415; 71045; 80048; 80076; 83690; 83735; 83880; 84484; 85025; 85610; 93005; 99284; 99285

== ENCOUNTER 2023-06-03 17:01 | Emergency (ER) | payer MEDICARE, OTHER, SELFPAY ==
--- NOTE | ~2023-06-03 | CT_ITS ---
EXAMINATION: CT ANGIOGRAM HEAD CT ANGIOGRAM NECK CLINICAL INFORMATION: Reason for Exam acute dizziness COMPARISON: CTA head and neck 01/03/[address] head 04/05/2023 TECHNIQUE: Test bolus sequences followed by intravenous administration 70 mL of Omnipaque 350. Helical imaging was performed in the axial plane from the aortic arch to the skull vertex. Delayed postcontrast imaging of the head was also performed. The data was processed at the cardiovascular radiologic technologist's workstation for generation of MIP sequences. Angled MIPs and volume rendered reformatted images were also generated at an offline 3D workstation. Stenoses are assessed in accordance with Ballesteros et al. Quantification of Carotid Stenosis on CT Angiography. AJR 2006. 27(1):13-19. This CT examination was performed using dose optimization techniques as appropriate, variously including the following: *Automated exposure control *Adjustment of mA and/or kV according to patient size (this includes techniques or standardized protocols for targeted exams where dose is matched to indication/reason for exam; i.e. extremities or head) *Use of iterative reconstruction technique DLP: 2228.28 mGy-cm FINDINGS: CT HEAD: Stable significant ventriculomegaly disproportionate to sulcal prominence suspicious for communicating hydrocephalus on a background of global cerebral volume loss. Mild cerebellar atrophy. Stable extensive patchy and confluent periventricular and deep white matter hypoattenuation, nonspecific but most suggestive of severe chronic microangiopathy and possible transependymal CSF effusion. Prominent perivascular spaces within the inferior basal ganglia. No territorial loss of damico-white differentiation. No acute intracranial hemorrhage or extra-axial fluid collection. No mass lesion, significant mass effect, or herniation pattern. No pathologic intra-axial enhancement or regional oligemia. Lungs replacement. Paranasal sinuses and mastoid air cells are well aerated. Osseous structures are intact. Degenerative changes of the temporomandibular joints. Borderline high riding right jugular bulb can be correlated clinically for signs of right-sided pulsatile tinnitus. CTA HEAD: No hemodynamically significant stenosis or occlusion in the anterior or posterior circulation. The intradural right vertebral artery is diminutive following the right PICA takeoff. Calcific plaque again moderately narrows the intradural left vertebral artery. 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 Calcific plaque along the slightly ectatic cavernous and supraclinoid internal carotid arteries. 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 Stable mild right without significant left supraclinoid ICA stenosis.. Extradural origins of the bilateral posterior inferior cerebellar arteries. No high flow vascular malformations. Timing of the contrast bolus allows assessment of the major dural venous sinuses, which all opacify normally CTA NECK: Classic 3 vessel branching pattern of the aortic arch. Mild partially calcified atheromatous disease of the aortic arch and great vessels. Origins of the great vessels are widely patent. The common carotid arteries are widely patent with scattered atherosclerotic disease. Mild atherosclerosis of the bilateral carotid bifurcations without significant stenosis. Widely patent internal carotid arteries. Segmental retropharyngeal course of the proximal to mid right cervical ICA. The left vertebral artery is dominant. The vertebral artery ostia are widely patent. Both vertebral arteries are widely patent throughout their extracranial cervical course. CT NECK: The patient is edentulous with dentures in place. Punctate sialolith within the superficial lobe of the left parotid gland. Partially herniated sublingual glands into the submandibular spaces in bilateral mylohyoid boutonniere defects. Atrophy of the bilateral clinical scientist space musculature. Stable 2.0 cm heterogeneous predominantly hypodense left thyroid nodule for which further evaluation with thyroid ultrasound is advised. Partially imaged centrilobular and paraseptal emphysematous changes with biapical pleural parenchymal scarring. Incidental azygos lobe. Diffuse osseous demineralization within the imaged cervicothoracic spinal column with multilevel spondylosis. CT/CT angio head neck IMPRESSION: 1. No acute intracranial findings. 2. Stable findings suspicious for communicating hydrocephalus superimposed upon generalized parenchymal volume loss. 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 3. No progressive steno-occlusive disease in the head or neck. Stable atherosclerosis notably contributing to moderate stenosis of the intradural left vertebral artery. 4. 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 5. Borderline high riding right jugular bulb can be correlated clinically for signs of right-sided pulsatile tinnitus. 6. Stable 2.0 cm left thyroid nodule for which further evaluation with thyroid ultrasound is advised.
[2023-06-03 17:03] VITALS: BP 168/96; PULSE 90; RESP 18; TEMP 37; O2SAT 97; BMI 27.1
[2023-06-03 17:22] VITALS: BP 157/90; PULSE 86; RESP 20; O2SAT 97
--- NOTE | 2023-06-03 17:26 | PC.NURSE ---
pt reports having a migraine w/ aura about 45 minutes ago, pain has subsided but remains lightheaded, dizzy and unbalanced. I don't feel like myself .
--- NOTE | 2023-06-03 18:09 | ECG_ITS ---
Test Reason : WEAKNESS Blood Pressure : / mmHG Vent. Rate : 085 BPM Atrial Rate : 085 BPM P-R Int : 226 ms QRS Dur : 092 ms QT Int : 382 ms P-R-T Axes : 050 -03 027 degrees QTc Int : 454 ms Sinus rhythm with 1st degree A-V block Otherwise normal ECG When compared with ECG of 31-MAY-2023 19:14, Criteria for Septal infarct are no longer Present Referred By: Darline Baer Electronically Signed By:PEPE PAIGE
--- NOTE | 2023-06-03 18:12 | ED_ITS ---
HPI - Dizziness General Chief Complaint: General Medical Stated Complaint: nausea,vision issues ? migraine Time Seen by Provider: 06/03/23 17:45 Source: patient Mode of arrival: ambulatory Limitations: no limitations History of Present Illness HPI Narrative: 82 yo female with PMH of neck pain, GERD, HTN, URI, pancytopenia, BPPV, HTN, aortic stenosis, TIA, anemia, OA, diverticulitis here with c/o 3 hours of feeling dizziness worse with standing and turning to the right. She denies headaches. Did have her typical visual auras of squiggly lines before hand. She had some nausea. No vision changes otherwise, CP/SOB, GIB symptoms, abdominal pain, numbness/tingling weakness or pain. She is not on thinners MD elicited complaint: lightheadedness Pertinent past history: BPPV Onset (ago): hour(s) (3) Timing: gradual onset Severity: moderate Description: lightheadedness Context: change in body position History of similar symptoms: Yes Exacerbating factors: movement/ambulation and change in body position Relieving factors: remaining still Associated symptoms: nausea Related Data Home Medications Medication Instructions Recorded Confirmed acetaminophen 500 mg tablet 1,000 mg PO Q6H PRN Pain 03/28/23 04/17/23 alprazolam 0.25 mg tablet 0.25 mg PO BID PRN Anxiety 03/28/23 04/17/23 celecoxib 200 mg capsule 200 mg PO BID 03/28/23 04/17/23 citalopram 10 mg tablet 10 mg PO BEDTIME 03/28/23 04/17/23 docusate sodium 100 mg capsule 100 mg PO BID 03/28/23 04/17/23 fexofenadine 180 mg tablet 180 mg PO DAILY PRN Allergic 03/28/23 04/17/23 Symptoms ondansetron HCl 4 mg tablet 4 mg PO Q8H PRN Nausea 03/28/23 04/17/23 polyethylene glycol 3350 17 gram 17 g PO DAILY PRN Constipation 03/28/23 04/17/23 oral powder packet Previous Rx's Medication Instructions Recorded cholecalciferol (vitamin D3) 50 50 mcg PO DAILY #30 tabs 03/31/23 mcg (2,000 unit) tablet fluticasone propionate 50 2 spray intranasal DAILY #16 grams 03/31/23 mcg/actuation nasal spray,suspension losartan 25 mg tablet 25 mg PO DAILY #30 tabs 03/31/23 melatonin 3 mg tablet 3 mg PO BEDTIME #30 tabs 03/31/23 aluminum-mag hydroxide-simethicone 5 ml PO Q6H PRN dyspepsia #355 mL 04/21/23 200 mg-200 mg-20 mg/5 mL oral susp (Maalox Advanced) sucralfate 1 gram tablet 1 g PO QIDACHS 5 days #20 tabs 04/22/23 pantoprazole 40 mg tablet,delayed 40 mg PO DAILY@0630 #90 tabs 05/10/23 release diclofenac sodium 1 % topical gel 2 g topical QID #100 grams 05/11/23 (Arthritis Pain (diclofenac)) cyanocobalamin (vitamin B-12) 1,000 mcg PO DAILY #30 tabs 05/22/23 1,000 mcg tablet (Vitamin B-12) Allergies Allergy/AdvReac Type Severity Reaction Status Date / Time buspirone Allergy Intermediate Rash Verified 05/25/23 14:32 Sulfa (Sulfonamide Allergy Intermediate RASH Verified 05/25/23 14:32 Antibiotics) amoxicillin [From AUGMENTIN] Allergy Unknown PER H&P Verified 05/25/23 14:32 clavulanic acid Allergy Unknown PER H&P Verified 05/25/23 14:32 [From AUGMENTIN] garlic [GARLIC] Allergy Unknown PER H&P Verified 05/25/23 14:32 metronidazole [From FLAGYL] Allergy Unknown OCULAR Verified 05/25/23 14:32 MIGRAINES penicillamine Allergy Unknown Unknown Verified 05/25/23 14:32 ciprofloxacin AdvReac Intermediate neuropathic Verified 05/25/23 14:32 pain lisinopril AdvReac Intermediate Cough Verified 05/25/23 14:32 nitrofurantoin AdvReac Mild GI side Verified 05/25/23 14:32 effects environmental Allergy Unknown Unknown Uncoded 05/25/23 14:06 flagyl Allergy Unknown Unknown Uncoded 05/25/23 14:06 From KEFLEX Allergy Unknown RASH Uncoded 05/25/23 14:06 Metoprolol Tartrate Allergy Unknown Unknown Uncoded 05/25/23 14:06 Sulfacet-R Allergy Unknown Unknown Uncoded 05/25/23 14:06 Review of Systems 2 Review of Systems: Constitutional : No Fever, No Chills, No Fatigue ENT/Mouth : No sore throat, No Rhinorrhea Eyes: No Eye Pain, No Swelling, No Redness Cardiovascular : No Chest Pain, No SOB, No Dyspnea on Exertion Respiratory : No Cough, No Sputum Gastrointestinal : pos Nausea, No Vomiting, No Diarrhea, No abdominal Pain Genitourinary : No Dysuria, No Urinary Frequency, No Hematuria, Musculoskeletal : No joint pain, No Myalgias, No Joint Swelling Skin : No Skin Lesions, No rash Neuro : No Weakness, No Numbness, pos Dizziness, no Headache Psych : No Anxiety/Panic, No Depression Heme/Lymph: No Bruising, No Bleeding,No Lymphadenopathy Endocrine : No Polyuria, No Polydipsia All other systems reviewed and are negative PMFSH Past Medical History Source: old records reviewed Medical History Neuropathy Arthritis GERD (gastroesophageal reflux disease) HTN (hypertension) Diverticulitis Anxiety Irritable bowel Heart murmur Surgical History Hx of esophagogastroduodenoscopy Hx of colonoscopy History of tonsillectomy History of appendectomy Family History Family History Father No problems noted. Mother No problems noted. Social History Social History Household Members: Children Housing: House Are you a primary critical care physician assistant to a significant other at home: No Do you presently have visiting nurse or other home services: No Alcohol intake: never Patient Tobacco Use Status: Former Tobacco user Quit Date: 2013 Tobacco use type: Cigarette Smoked in Last 30 Days: No e-Cigarette/Vaping Use: Never Used Second Hand Smoke Exposure: No Use of substances other than those prescribed or required for medical reasons: No Advance Directives: Yes Advance Directives on File: Yes Advance Directives Date on File: 03/28/23 service: No Current occupational status: retired Cognitive needs: No Hearing needs: No Vision needs: Yes (glasses) Physical Exam 2 Vital Signs: Vital Signs: Last Vital Signs Temp 98.6 F 06/03/23 17:03 Pulse 85 06/03/23 20:02 Resp 17 06/03/23 20:02 BP 157/91 H 06/03/23 20:02 Pulse Ox 98 06/03/23 20:02 O2 Del Method Room Air 06/03/23 20:02 BMI result Body Mass Index 27.1 Appearance: Alert. Oriented X3. No acute distress. Eyes: Pupils equal, round and reactive to light. ENT: Pharynx normal. Neck: Normal inspection. Neck supple. CVS: Normal heart rate and rhythm. Pulses normal. Respiratory: No respiratory distress. Breath sounds normal. Abdomen: Soft and nontender. Skin: Skin warm and dry. Normal skin color. Normal skin turgor. Extremities: No lower extremity edema. No calf ttp Neuro: Oriented X 3. No motor deficit. No sensory deficit. normal gait, no ataxia, CN 2-12 intact, no drift NIH Stroke Scale Internal: Initial- Upon Arrival Level of Consciousness: Alert Level of Consciousness Questions: Answers both questions correctly Level of Consciousness Commands: Performs both tasks correctly Best Gaze: Normal Visual: No visual loss Facial Palsy: Normal Motor Arm (Right): No drift Motor Arm (Left): No drift Motor Leg (Right): No drift Motor Leg (Left): No drift Limb Ataxia: Absent Sensory: Normal Best Language: No aphasia Dysarthia: Normal Extinction and Inattention: No abnormality Score: 0 Medications Administered Discontinued Medications Generic Name Dose Route Start Last Admin Trade Name Freq PRN Reason Stop Dose Admin Iohexol 100 ml 06/03/23 19:37 06/03/23 19:37 Iohexol 350 Mg/Ml 100 Ml Infus..Btl IV 06/03/23 19:38 70 ml ONCE ONE Administration Meclizine HCl 25 mg 06/03/23 18:06/03/23 18:41 Meclizine Hcl 25 Mg Tablet PO 06/03/23 18:10 25 mg ONCE ONE Administration Ondansetron HCl 4 mg 06/03/23 18:06/03/23 18:41 Ondansetron Hcl 4 Mg/2 Ml Vial IVPUSH 06/03/23 18:10 4 mg ONCE ONE Administration Medical Decision Making Medical Decision Making MDM Narrative: 82 yo female with PMH of neck pain, GERD, HTN, URI, pancytopenia, BPPV, HTN, aortic stenosis, TIA, anemia, OA, diverticulitis here with c/o lightheadedness worse moving and worse turning head to right - no trauma no vision changes no numbness/weakness no other neurologic symptoms no CP/SOB at this time seems more peripheral in nature but given age will obtain basic labs, EKG, IV zofran/meclizine and CTA of head and neck. NIH is 0 is posterior stroke it would be so to low of a score and not debilitating enough to get tPa Differential Diagnosis Differential Diagnoses: The differential diagnosis associated with the presentation includes vertigo, anemia, dehydration, dizziness, posterior less likely no other associated symptoms Admission/Observation Consideration of admission/observation: Escalation of care including admission/observation considered stable CTA no tinnitus walking around symptoms resolved hx of vertigo doubt stroke or TIA Lab Data MDM Lab Attestation statement: I reviewed the patient's lab results. 06/03/23 18:44 06/03/23 18:44 Labs: Lab Results 06/03/23 Range/Units 18:44 WBC 4.3 L (4.8-10.8) X10*3/uL RBC 3.37 L (4.20-5.50) X10*6/uL Hgb 10.2 L (12.0-16.0) g/dl Hct 31.5 L (37.0-47.0) % MCV 93.5 (80.0-98.0) fL MCH 30.3 (27.0-33.0) pg MCHC 32.4 (31.0-35.0) g/dl RDW 13.7 (11.0-16.0) % Plt Count 120 L (160-400) X10*3/uL MPV 11.6 (9.4-12.3) fL Immature Gran % (Auto) 0.2 (0.0-0.4) % Neut % (Auto) 81.1 H (45-73) % Lymph % (Auto) 11.6 L (20-40) % [place] % (Auto) 5.3 (2-11) % Eos % (Auto) 1.6 (0-4) % Baso % (Auto) 0.2 (0-2) % Lymph # (Auto) 0.5 L (1.2-4.9) X10*3/uL [place] # (Auto) 0.2 (0.1-1.2) X10*3/uL Eos # (Auto) 0.1 (0.0-0.4) X10*3/uL Baso # (Auto) 0.0 (0.0-0.2) X10*3/uL Abs Immat Gran (auto) 0.01 (0.00-0.03) X10*3/uL Absolute Neuts (auto) 3.5 (2.0-8.3) x10*3/uL Absolute Nucleated RBC 0.000 (0.0-0.012) X10*3/uL Nucleated RBC % (auto) 0.0 (0.0-0.2) /100WBC Sodium 139 (135-145) mmol/L Potassium 4.9 (3.3-5.1) mmol/L Chloride 105 (96-108) mmol/L Carbon Dioxide 27 (22-29) mmol/L Anion Gap 12 (12-20) BUN 16 (9-16) mg/dL Creatinine 0.72 (0.5-1.4) mg/dL Estim Creat Clear Calc 62.7 Estimated GFR > 60 Random Glucose 119 H (60-115) mg/dL Calcium 9.7 (8.4-10.2) mg/dL Magnesium 2.0 (1.6-2.6) mg/dL Total Bilirubin 0.4 (0.0-1.0) mg/dL Direct Bilirubin 0.2 (0.0-0.5) mg/dL AST 15 (5-31) U/L ALT 8 (0-31) U/L Alkaline Phosphatase 128 H (39-117) U/L Troponin I High Sens 5.9 D (<3.5-17.0) ng/L Total Protein 6.9 (6.5-8.0) g/dL Albumin 4.0 (3.5-5.0) g/dL Independent Interpretation I performed an independent interpretation of an: EKG and CT Scan (stable appearing no tinnitus) Interpretation: Rate: 85 Rhythm: NSR 1st degree AVB [place]: left Normal P waves. Normal QRS complex. ST T wave : normal no FARAZ qTC: normal prior studies: no acute ischemia The study has been interpreted contemporaneously by me. . Radiology Impression Discussion of test interpretation with radiology: I have reviewed the radiologist's reading. External Record Review External record reviewed: Inpatient record Discharge Plan Discharge Clinical Impression: Dizziness Patient Disposition: Home, Self-Care Instructions: Dizziness (ED) Additional Instructions: chronic findings on CTA of head other than thyroid nodule R side can get ultrasound with your doctor. take your medications as prescribed follow up with your doctor. return for weakness, numbness, change in vision, chest pain, trouble breathing, severe headache or any other concerns Prescriptions: No Action sucralfate 1 gram tablet 1 g PO QIDACHS 5 Days Qty: 20 0RF pantoprazole 40 mg tablet,delayed release (DR/EC) 40 mg PO DAILY@0630 Qty: 90 1RF cyanocobalamin (vitamin B-12) [Vitamin B-12] 1,000 mcg tablet 1,000 mcg PO DAILY Qty: 30 3RF celecoxib 200 mg capsule 200 mg PO BID polyethylene glycol 3350 17 gram powder in packet 17 g PO DAILY PRN (Reason: Constipation) citalopram 10 mg tablet 10 mg PO BEDTIME ondansetron HCl 4 mg tablet 4 mg PO Q8H PRN (Reason: Nausea) alprazolam 0.25 mg tablet 0.25 mg PO BID PRN (Reason: Anxiety) docusate sodium 100 mg capsule 100 mg PO BID fexofenadine [Laurel] 180 mg Tablet 180 mg PO DAILY PRN (Reason: Allergic Symptoms) acetaminophen 500 mg Tablet 1,000 mg PO Q6H PRN (Reason: Pain) losartan 25 mg tablet 25 mg PO DAILY Qty: 30 3RF fluticasone propionate 50 mcg/actuation spray,suspension 2 spray intranasal DAILY Qty: 16 0RF cholecalciferol (vitamin D3) 50 mcg (2,000 unit) tablet 50 mcg PO DAILY Qty: 30 3RF melatonin 3 mg tablet 3 mg PO BEDTIME Qty: 30 0RF alum-mag hydroxide-simeth [Maalox Advanced] 200-200-20 mg/5 mL suspension 5 ml PO Q6H PRN (Reason: dyspepsia) Qty: 355 0RF diclofenac sodium [Arthritis Pain (diclofenac)] 1 % gel 2 g topical QID Qty: 100 0RF Rx Instructions: apply to side of neck
[2023-06-03] MEDS: ondansetron HCL 4 MG/2 ML VIAL IVPUSH (18:41)
[2023-06-03] MEDS: Meclizine HCl 25 MG TABLET PO (18:41)
[2023-06-03 18:48] LABS: MANUAL DIFF FLAG NO
[2023-06-03 18:52] LABS: Basophils Percent Auto 0.2 % (0-2); Eosinophils Absolute Auto 0.1 X10*3/uL (0.0-0.4); Eosinophils Percent Auto 1.6 % (0-4); Hematocrit 31.5 % (37.0-47.0); Hemoglobin 10.2 g/dl (12.0-16.0); Imm Gran Abs Auto 0.01 X10*3/uL (0.00-0.03); Imm Gran Pct Auto 0.2 % (0.0-0.4); Lymphocytes Absolute Auto 0.5 X10*3/uL (1.2-4.9); Lymphocytes Percent Auto 11.6 % (20-40); Mean Corpuscular HGB Conc 32.4 g/dl (31.0-35.0); Mean Corpuscular Hemoglobin 30.3 pg (27.0-33.0); Mean Corpuscular Volume 93.5 fL (80.0-98.0); Mean Platelet Volume 11.6 fL (9.4-12.3); Monocytes Absolute Auto 0.2 X10*3/uL (0.1-1.2); Monocytes Percent Auto 5.3 % (2-11); Neutrophils Absolute Auto 3.5 x10*3/uL (2.0-8.3); Neutrophils Percent Auto 81.1 % (45-73); Platelet Count 120 X10*3/uL (160-400); Red Blood Count 3.37 X10*6/uL (4.20-5.50); Red Cell Distribution Width 13.7 % (11.0-16.0); White Blood Count 4.3 X10*3/uL (4.8-10.8)
[2023-06-03 19:10] LABS: Alanine Aminotransferase 8 U/L (0-31); Alkaline Phosphatase 128 U/L (39-117); Anion Gap 12 (12-20); Aspartate Amino Transferase 15 U/L (5-31); Bilirubin Direct 0.2 mg/dL (0.0-0.5); Bilirubin Total 0.4 mg/dL (0.0-1.0); Blood Urea Nitrogen 16 mg/dL (9-16); Calcium 9.7 mg/dL (8.4-10.2); Carbon Dioxide 27 mmol/L (22-29); Chloride 105 mmol/L (96-108); Creatinine Clr Calc Pharmacy 62.7; Estimated Glomerular Filt Rate > 60; Glucose Random 119 mg/dL (60-115); Potassium 4.9 mmol/L (3.3-5.1); Sodium 139 mmol/L (135-145); Total Protein 6.9 g/dL (6.5-8.0)
[2023-06-03 19:16] LABS: Troponin-I High Sensitivity 5.9 ng/L (<3.5-17.0)
[2023-06-03] MEDS: iohexoL 350 MG/ML 100 ML INFUS..BTL IV (19:37)
[2023-06-03 20:02] VITALS: BP 157/91; PULSE 85; RESP 17; O2SAT 98
== END 2023-06-03 21:44 | disposition home or self-care (01) ==
PROVIDERS: Emergency Provider Emergency Medicine; PCP Physician Assistant
DX: R42 Dizziness and giddiness (principal); I10 Essential (primary) hypertension; Z87.891 Personal history of nicotine dependence
CPT/HCPCS: 36415; 70496; 70498; 80048; 80076; 83735; 84484; 85025; 93005; 96374; 99284; J2405; Q9967

== ENCOUNTER → 2023-06-06 12:50 | Outpatient (REF) | payer MEDICARE, OTHER, SELFPAY ==
--- NOTE | 2023-06-06 12:53 | CA_ITS ---
Transthoracic Echocardiogram Patient (Last, First, Middle): Bella Henley G Gender: Female Date of : 1940 Age: 82 Procedure Date: 06/06/2023 Procedure Type: Transthoracic Echocardiogram Location: OP Height: 167.64 cm Weight: 73.94 kg BSA: 1.83 m2 Heart Rate: bpm BP: 124 / 60 mmHg Director Web: Referring MD: Tre Duffy MD Symptoms: I35.0 - Nonrheumatic aortic (valve) stenosis Study Quality: Fair ECG Rhythm: Sinus Conclusions: - The left ventricular systolic function is normal. The calculated ejection fraction is 66% by biplane method. - There is moderately increased left ventricular wall thickness. - There is severe aortic valve stenosis. - There is moderate mitral annular calcification. Findings Left Ventricle Normal left ventricular cavity size. There is moderately increased left ventricular wall thickness. The left ventricular systolic function is normal. The calculated ejection fraction is 66% by biplane method. There is no evidence of regional wall motion abnormalities. Evidence suggests grade I (mild) diastolic dysfunction. Right Ventricle Normal right ventricular cavity size and systolic function. Atria The left atrium is mildly dilated. The right atrium is normal in size. Aortic Valve There is moderate calcification of the aortic valve. There is severe aortic valve stenosis. The peak aortic velocity is 4.35 m/s with a calculated peak gradient of 76 mmHg. The mean gradient is 45 mmHg. The aortic valve area is 0.87 cm2. There is no aortic valve regurgitation. Mitral Valve There is moderate mitral annular calcification. There is mild mitral valve regurgitation. There is no mitral valve stenosis. Pulmonic Valve The pulmonic valve is likely normal. Tricuspid Valve There is trace tricuspid valve regurgitation. There is no evidence of pulmonary hypertension. Great Vessels There is mild dilatation of the ascending aorta measuring 4.00 cm. Venous The inferior vena cava is normal in size and collapses greater than 50% with inspiration. Pericardium/Pleural There is no evidence of pericardial effusion. Prior Study Comparison Changes noted compared to prior study dated: 08/15/2023. Measurements 2D Linear Measurements IVSd: 1.44 0.6-0.9/0.6-1.0 cm LVIDd: 3.08 3.9-5.3/4.2-5.9 cm LVIDd Index: 1.68 2.4-3.2/2.2-3.1 cm/m2 LVIDs: 2.32 2.0-3.6 cm LVPWd: 1.41 0.7-1.1 cm Ao Root: 3.70 2.1-3.5 cm LA Diam: 2.70 2.7-3.8/3.0-4.0 cm LAIDs Index: 1.48 1.5-2.3 cm/m2 LV Mass: 186.48 67-162/88-224 g LV Mass Index: 101.90 43-95/49-115 g/m2 LVOT Diam: 2.00 3.0+(-)1.3 cm 2D Systolic Function EF 4C: 64.80 >55% EF 2C: 67.30 >55% EF BiP: 66.30 >55% Mitral Valve MV Pk E: 0.78 MV PK A: 1.08 MV Decel Time: 242.00 E/A: 0.70 E'Lateral: 6.85 E'Medial: 4.03 E/E' Med: 19.30 E/E' Lat: 11.30 PHT: 71.00 MVA PHT: 3.10 Decel [place]: 3.20 Aortic Valve AoV Pk Anthony: 4.35 AoV Mn Anthony: 3.16 AoV VTI: 1.07 AoV Pk Grad: 76.00 Aov Mn Grad: 45.00 LULA Cont.VTI: 0.87 LVOT LVOT Pk Anthony: 1.18 LVOT Mn Anthony: 0.80 LVOT VTI: 0.30 LVOT Pk Grad: 6.00 LVOT Mn Grad: 3.00 LVOT Diam: 2.00 LVOT Area: 3.14 Diastolic Function MV Pk E: 0.78 MV Pk A: 1.08 E/A: 0.70 E'Medial: 4.03 E/E' Med: 19.30 E' Laterial: 6.85 E/E' Lat: 11.30 Right Ventricle TAPSE (mm): 28.00 TVS' Anthony: 10.00 Tricuspid Valve TR Pk Anthony: 2.51 TR Pk Grad: 25.00 RA Press: 3.00 RVSP: 28.00 Great Vessels Aorta Ao Root-2D: 3.70 2.0-3.7 cm Ao Asc: 4.00 2.1-3.4 cm Pulmonary Valve PV Pk Anthony: 1.59 Peak PV Grad: 10.00 Updated in Other Vendor System with Status of Final Tre Duffy MD electronically signed on 06/07/2023 4:43:18 PM with status of Final
== END ==
LOC: HO.CARD 12:50
PROVIDERS: PCP Physician Assistant; Visit Provider Internal Medicine
DX: I35.0 Nonrheumatic aortic (valve) stenosis (principal)
CPT/HCPCS: 93306

== ENCOUNTER → 2023-06-06 12:53 | Outpatient (BNV) | payer MEDICARE, OTHER, SELFPAY | PROVIDERS: PCP Physician Assistant; Visit Provider Internal Medicine | DX: I35.0 Nonrheumatic aortic (valve) stenosis (principal) | CPT/HCPCS: 93306 ==

== ENCOUNTER 2023-06-08 10:32 | Outpatient (REF) | payer MEDICARE, OTHER, SELFPAY | END 2023-06-08 10:33 | disposition home or self-care (01) | LOC: HO.LAB 10:32 | PROVIDERS: PCP Physician Assistant; Visit Provider Physician Assistant | DX: R74.8 Abnormal levels of other serum enzymes (principal); K21.9 Gastro-esophageal reflux disease without esophagitis | CPT/HCPCS: 36415; 82607; 82746 ==

== ENCOUNTER 2023-06-09 14:35 | Emergency (ER) | payer MEDICARE, OTHER, SELFPAY ==
[2023-06-09 14:57] LABS: MANUAL DIFF FLAG NO
[2023-06-09 15:00] LABS: Basophils Percent Auto 0.7 % (0-2); Eosinophils Absolute Auto 0.1 X10*3/uL (0.0-0.4); Eosinophils Percent Auto 2.1 % (0-4); Hematocrit 34.5 % (37.0-47.0); Hemoglobin 11.4 g/dl (12.0-16.0); Imm Gran Abs Auto 0.02 X10*3/uL (0.00-0.03); Imm Gran Pct Auto 0.5 % (0.0-0.4); Lymphocytes Absolute Auto 0.6 X10*3/uL (1.2-4.9); Lymphocytes Percent Auto 14.5 % (20-40); Mean Corpuscular Hemoglobin 30.2 pg (27.0-33.0); Mean Corpuscular Volume 91.3 fL (80.0-98.0); Mean Platelet Volume 11.4 fL (9.4-12.3); Monocytes Absolute Auto 0.2 X10*3/uL (0.1-1.2); Monocytes Percent Auto 4.9 % (2-11); Neutrophils Absolute Auto 3.3 x10*3/uL (2.0-8.3); Neutrophils Percent Auto 77.3 % (45-73); Platelet Count 134 X10*3/uL (160-400); Red Blood Count 3.78 X10*6/uL (4.20-5.50); Red Cell Distribution Width 13.8 % (11.0-16.0); White Blood Count 4.3 X10*3/uL (4.8-10.8)
[2023-06-09 15:12] LABS: Anion Gap 15 (12-20); Blood Urea Nitrogen 14 mg/dL (9-16); Carbon Dioxide 26 mmol/L (22-29); Chloride 102 mmol/L (96-108); Estimated Glomerular Filt Rate > 60; Glucose Random 98 mg/dL (60-115); Potassium 3.9 mmol/L (3.3-5.1); Sodium 139 mmol/L (135-145)
--- NOTE | 2023-06-09 15:12 | ED.CHESTPAIN ---
HPI - Chest Pain General Chief Complaint: Chest Pain Stated Complaint: Chest Pain Light Headedness Time Seen by Provider: 06/09/23 17:34 Source: patient Mode of arrival: ambulatory Limitations: no limitations History of Present Illness HPI narrative: 82-year-old female with known history of anxiety presented today with mid chest pain that radiates to the left axilla started since morning 06:00 pain has been constant since then describes it as a tightness in the chest moderate 03/13 no clear aggravating factor or relieving factor, no SOB. With the chest pain patient feels lightheadedness. Related Data Home Medications Medication Instructions Recorded Confirmed acetaminophen 500 mg tablet 1,000 mg PO Q6H PRN Pain 03/28/23 04/17/23 alprazolam 0.25 mg tablet 0.25 mg PO BID PRN Anxiety 03/28/23 04/17/23 celecoxib 200 mg capsule 200 mg PO BID 03/28/23 04/17/23 citalopram 10 mg tablet 10 mg PO BEDTIME 03/28/23 04/17/23 docusate sodium 100 mg capsule 100 mg PO BID 03/28/23 04/17/23 fexofenadine 180 mg tablet 180 mg PO DAILY PRN Allergic 03/28/23 04/17/23 Symptoms ondansetron HCl 4 mg tablet 4 mg PO Q8H PRN Nausea 03/28/23 04/17/23 polyethylene glycol 3350 17 gram 17 g PO DAILY PRN Constipation 03/28/23 04/17/23 oral powder packet Previous Rx's Medication Instructions Recorded cholecalciferol (vitamin D3) 50 50 mcg PO DAILY #30 tabs 03/31/23 mcg (2,000 unit) tablet fluticasone propionate 50 2 spray intranasal DAILY #16 grams 03/31/23 mcg/actuation nasal spray,suspension losartan 25 mg tablet 25 mg PO DAILY #30 tabs 03/31/23 melatonin 3 mg tablet 3 mg PO BEDTIME #30 tabs 03/31/23 aluminum-mag hydroxide-simethicone 5 ml PO Q6H PRN dyspepsia #355 mL 04/21/23 200 mg-200 mg-20 mg/5 mL oral susp (Maalox Advanced) pantoprazole 40 mg tablet,delayed 40 mg PO DAILY@0630 #90 tabs 05/10/23 release diclofenac sodium 1 % topical gel 2 g topical QID #100 grams 05/11/23 (Arthritis Pain (diclofenac)) cyanocobalamin (vitamin B-12) 1,000 mcg PO DAILY #30 tabs 05/22/23 1,000 mcg tablet (Vitamin B-12) sucralfate 1 gram tablet 1 g PO QIDACHS 5 days #20 tabs 06/05/23 Allergies Allergy/AdvReac Type Severity Reaction Status Date / Time buspirone Allergy Intermediate Rash Verified 05/25/23 14:32 Sulfa (Sulfonamide Allergy Intermediate RASH Verified 05/25/23 14:32 Antibiotics) amoxicillin [From AUGMENTIN] Allergy Unknown PER H&P Verified 05/25/23 14:32 clavulanic acid Allergy Unknown PER H&P Verified 05/25/23 14:32 [From AUGMENTIN] garlic [GARLIC] Allergy Unknown PER H&P Verified 05/25/23 14:32 metronidazole [From FLAGYL] Allergy Unknown OCULAR Verified 05/25/23 14:32 MIGRAINES penicillamine Allergy Unknown Unknown Verified 05/25/23 14:32 ciprofloxacin AdvReac Intermediate neuropathic Verified 05/25/23 14:32 pain lisinopril AdvReac Intermediate Cough Verified 05/25/23 14:32 nitrofurantoin AdvReac Mild GI side Verified 05/25/23 14:32 effects environmental Allergy Unknown Unknown Uncoded 05/25/23 14:06 flagyl Allergy Unknown Unknown Uncoded 05/25/23 14:06 From KEFLEX Allergy Unknown RASH Uncoded 05/25/23 14:06 Metoprolol Tartrate Allergy Unknown Unknown Uncoded 05/25/23 14:06 Sulfacet-R Allergy Unknown Unknown Uncoded 05/25/23 14:06 Review of Systems Review of Systems: All other systems are reviewed and are negative Constitutional: Reports as per HPI and Reports no additional constitutional complaints Eyes: Reports as per HPI and Reports no additional eye complaints Reports system reviewed and no additional complaints, except as documented Cardiovascular: Reports as per HPI and Reports no additional cardiovascular complaints Respiratory: Reports as per HPI and Reports no additional respiratory complaints Gastrointestinal: Reports as per HPI and Reports no additional gastrointestinal complaints Genitourinary: Reports no additional female genitourinary complaints Musculoskeletal: Reports no additional musculoskeletal complaints Skin/Breast: Reports system reviewed and no additional complaints, except as docu Psychiatric: Reports no additional psychiatric complaints Endocrine: Reports no additional endocrine complaints Hematologic/Lymphatic: Reports no additional hematologic/lymphatic complaints Allergic/Immunologic: Reports no additional allergic/immunologic complaints Reports system reviewed and no additional complaints, except as documented and Reports Abnormal speech present [facility] Past Medical History Medical History Neuropathy Arthritis GERD (gastroesophageal reflux disease) HTN (hypertension) Diverticulitis Anxiety Irritable bowel Heart murmur Surgical History Hx of esophagogastroduodenoscopy Hx of colonoscopy History of tonsillectomy History of appendectomy Family History Family History Father No problems noted. Mother No problems noted. Social History Social History Household Members: Children Housing: House Are you a primary health care marketing specialist to a significant other at home: No Do you presently have visiting nurse or other home services: No Alcohol intake: never Patient Tobacco Use Status: Former Tobacco user Quit Date: 2013 Tobacco use type: Cigarette Smoked in Last 30 Days: No e-Cigarette/Vaping Use: Never Used Second Hand Smoke Exposure: No Use of substances other than those prescribed or required for medical reasons: No Advance Directives: Yes Advance Directives on File: Yes Advance Directives Date on File: 03/28/23 service: No Current occupational status: retired Cognitive needs: No Hearing needs: No Vision needs: Yes (glasses) Physical Exam Vital Signs: Vital Signs: Last Vital Signs Temp 98.7 F 06/09/23 19:01 Pulse 97 06/09/23 19:01 Resp 18 06/09/23 19:01 BP 133/77 06/09/23 19:01 Pulse Ox 97 06/09/23 19:01 O2 Del Method Room Air 06/09/23 19:01 BMI result Body Mass Index 26.3 Vital signs have been reviewed and appear to be correct. Blood pressure elevated. Heart rate normal. Respiratory rate normal. Temperature normal. Oxygen saturation normal. Appearance: Alert. Oriented X3. No acute distress. Head: Normal external exam. Normocephalic. Atraumatic. No Calvert signs noted. No raccoon eyes noted Eyes: PERRLA. EOMI. Conjunctiva and sclera normal. Eyelids normal. ENT: TM's Normal. Pharynx normal. Uvula midline. Moist mucous membranes. No trismus noted. No drooling noted. No muffled voice noted. Neck: Normal inspection. Neck supple. FROM. No adenopathy. Thyroid Normal. No meningeal signs. No neck mass noted. CVS: Normal heart rate and rhythm. Heart sound normal. No murmurs noted. Pulses normal throughout. Respiratory: No respiratory distress. Painless inspiration. Breath sounds normal. No wheezes/rales/rhonchi noted. Chest nontender. No accessory muscle usage noted or decreased air movement noted. Abdomen: Soft and nontender. Bowel sounds normal in all 4 quadrants. No distention noted. No organomegaly noted. No visible injury noted. Back: No CVA tenderness. Full range of motion noted. Skin: Skin warm and dry. Normal skin color. Normal skin turgor. No rashes/lesions/lacerations noted. Extremities: No lower extremity edema. Extremities exhibit normal range of motion. Extremities nontender. Neuro: Oriented X 3. Cranial nerve exam: II-XII are grossly intact No motor deficit. No sensory deficit. Reflexes normal. NIH Stroke Scale Time: 19:29 Level of Consciousness: Alert Level of Consciousness Questions: Answers both questions correctly Level of Consciousness Commands: Performs both tasks correctly Best Gaze: Normal Visual: No visual loss Facial Palsy: Normal Motor Arm (Right): No drift Motor Arm (Left): No drift Motor Leg (Right): No drift Motor Leg (Left): No drift Limb Ataxia: Absent Sensory: Normal Best Language: No aphasia Dysarthia: Normal Extinction and Inattention: No abnormality Score: 0 Course Course Course Narrative: This is an RME: Additional HPI, ROS, PE not included below will be deferred to primary provider. Patient is an 82-year-old female who presents emergency department reporting mid/left anterior chest pain radiating into the left axillary region, shortness of breath, and lightheadedness. 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 Duffy. States that she is awaiting TAVR. Plan: Labs, EKG Reevaluation(s) Reevaluation #1: 82-year-old female history of moderate aortic valve stenosis and a recent echocardiogram patient has an appointment with Dr. Duffy this week to discuss the result of the echocardiogram, the patient had negative troponin x2 and non concerning EKG. Patient's symptoms is improved. Time: 19:02 Medical Decision Making Differential Diagnosis Differential Diagnoses: The differential diagnosis associated with the presentation includes ( ACS, pneumonia, pneumothorax, pleural effusion, CHF, anxiety,. Electrolyte abnormality, severe anemia.) Admission/Observation Consideration of admission/observation: Escalation of care including admission/observation considered Lab Data MDM Lab Attestation statement: I reviewed the patient's lab results. 06/09/23 14:52 06/09/23 14:52 Labs: Lab Results 06/09/23 06/09/23 Range/Units 14:52 18:16 WBC 4.3 L (4.8-10.8) X10*3/uL RBC 3.78 L (4.20-5.50) X10*6/uL Hgb 11.4 L (12.0-16.0) g/dl Hct 34.5 L (37.0-47.0) % MCV 91.3 (80.0-98.0) fL MCH 30.2 (27.0-33.0) pg MCHC 33.0 (31.0-35.0) g/dl RDW 13.8 (11.0-16.0) % Plt Count 134 L (160-400) X10*3/uL MPV 11.4 (9.4-12.3) fL Immature Gran % (Auto) 0.5 H (0.0-0.4) % Neut % (Auto) 77.3 H (45-73) % Lymph % (Auto) 14.5 L (20-40) % [place] % (Auto) 4.9 (2-11) % Eos % (Auto) 2.1 (0-4) % Baso % (Auto) 0.7 (0-2) % Lymph # (Auto) 0.6 L (1.2-4.9) X10*3/uL [place] # (Auto) 0.2 (0.1-1.2) X10*3/uL Eos # (Auto) 0.1 (0.0-0.4) X10*3/uL Baso # (Auto) 0.0 (0.0-0.2) X10*3/uL Abs Immat Gran (auto) 0.02 (0.00-0.03) X10*3/uL Absolute Neuts (auto) 3.3 (2.0-8.3) x10*3/uL Absolute Nucleated RBC 0.000 (0.0-0.012) X10*3/uL Nucleated RBC % (auto) 0.0 (0.0-0.2) /100WBC Sodium 139 (135-145) mmol/L Potassium 3.9 D (3.3-5.1) mmol/L Chloride 102 (96-108) mmol/L Carbon Dioxide 26 (22-29) mmol/L Anion Gap 15 (12-20) BUN 14 (9-16) mg/dL Creatinine 0.78 (0.5-1.4) mg/dL Estim Creat Clear Calc TNP Estimated GFR > 60 Random Glucose 98 (60-115) mg/dL Calcium 10.0 (8.4-10.2) mg/dL Troponin I High Sens 3.5 3.9 (<3.5-17.0) ng/L Independent Interpretation I performed an independent interpretation of an: EKG ( Normal sinus rhythm with first-degree AV block, otherwise intervals are unremarkable, no ST-T ischemic changes, no change from previous EKG.) and Plain X-Ray ( Chest:1. No acute cardiopulmonary findings. 2. Unchanged prominence of the central pulmonary arteries which could be seen with pulmonary hypertension. 3. Stable hyperexpansion and interstitial prominence suggesting some degree of air-trapping in the context of small airways disease or COPD/emph) Radiology Impression Discussion of test interpretation with radiology: I have reviewed the radiologist's reading. Chronic Conditions Patient?s care impacted by: Hypertension and Other ( Anxiety) Discharge Plan Discharge Clinical Impression: Chest pain, Dizziness, Hypertension Patient Disposition: Home, Self-Care Instructions: Chest Pain (ED) Prescriptions: No Action pantoprazole 40 mg tablet,delayed release (DR/EC) 40 mg PO DAILY@0630 Qty: 90 1RF cyanocobalamin (vitamin B-12) [Vitamin B-12] 1,000 mcg tablet 1,000 mcg PO DAILY Qty: 30 3RF sucralfate 1 gram tablet 1 g PO QIDACHS 5 Days Qty: 20 0RF celecoxib 200 mg capsule 200 mg PO BID polyethylene glycol 3350 17 gram powder in packet 17 g PO DAILY PRN (Reason: Constipation) citalopram 10 mg tablet 10 mg PO BEDTIME ondansetron HCl 4 mg tablet 4 mg PO Q8H PRN (Reason: Nausea) alprazolam 0.25 mg tablet 0.25 mg PO BID PRN (Reason: Anxiety) docusate sodium 100 mg capsule 100 mg PO BID fexofenadine [[place]] 180 mg Tablet 180 mg PO DAILY PRN (Reason: Allergic Symptoms) acetaminophen 500 mg Tablet 1,000 mg PO Q6H PRN (Reason: Pain) losartan 25 mg tablet 25 mg PO DAILY Qty: 30 3RF fluticasone propionate 50 mcg/actuation spray,suspension 2 spray intranasal DAILY Qty: 16 0RF cholecalciferol (vitamin D3) 50 mcg (2,000 unit) tablet 50 mcg PO DAILY Qty: 30 3RF melatonin 3 mg tablet 3 mg PO BEDTIME Qty: 30 0RF alum-mag hydroxide-simeth [Maalox Advanced] 200-200-20 mg/5 mL suspension 5 ml PO Q6H PRN (Reason: dyspepsia) Qty: 355 0RF diclofenac sodium [Arthritis Pain (diclofenac)] 1 % gel 2 g topical QID Qty: 100 0RF Rx Instructions: apply to side of neck Referrals: Nick Gomez PA-C [Primary Care Provider] - Tre Duffy MD [Physician] -
[2023-06-09 15:14] VITALS: BP 145/89; PULSE 84; RESP 14; TEMP 37.2; O2SAT 96; BMI 26.3
[2023-06-09 17:41] VITALS: BP 168/92; PULSE 94; RESP 13; O2SAT 97
[2023-06-09 18:00] VITALS: BP 168/92; PULSE 89; RESP 18; O2SAT 98
--- NOTE | 2023-06-09 18:04 | PC.NURSE ---
Patient reports left sided chest pain that started around 7am, patient reports pain has improved over the day but still has 2/10 left sided chest pin. Reports hx of similar events. denies sob, reports does have a headache but took a tylenol prior to coming to er with good effect. no lower extremity edema.
[2023-06-09 18:07] VITALS: BP 170/94; BP 171/95; PULSE 87; PULSE 92
[2023-06-09 18:09] VITALS: BP 194/95; PULSE 94
[2023-06-09 19:01] VITALS: BP 133/77; PULSE 97; RESP 18; TEMP 37.1; O2SAT 97
== END 2023-06-09 19:39 | disposition home or self-care (01) ==
PROVIDERS: Emergency Provider Emergency Medicine; PCP Physician Assistant
DX: R07.9 Chest pain, unspecified (principal); R42 Dizziness and giddiness; I10 Essential (primary) hypertension; R29.700 NIHSS score 0; Z87.891 Personal history of nicotine dependence; Z79.899 Other long term (current) drug therapy
CPT/HCPCS: 36415; 71046; 80048; 84484; 85025; 93005; 99285

== ENCOUNTER 2023-06-14 14:18 | Outpatient (AMB) | payer MEDICARE, OTHER, SELFPAY ==
--- NOTE | 2023-06-14 14:29 | A.OFFVIS_ITS ---
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 Required: No Accompanied by: Self / Same As Patient Allergies buspirone Allergy (Intermediate, Verified 06/14/23 14:30) Rash Sulfa (Sulfonamide Antibiotics) Allergy (Intermediate, Verified 06/14/23 14:30) RASH amoxicillin [From AUGMENTIN] Allergy (Unknown, Verified 06/14/23 14:30) PER H&P clavulanic acid [From AUGMENTIN] Allergy (Unknown, Verified 06/14/23 14:30) PER H&P garlic [GARLIC] Allergy (Unknown, Verified 06/14/23 14:30) PER H&P metronidazole [From FLAGYL] Allergy (Unknown, Verified 06/14/23 14:30) OCULAR MIGRAINES penicillamine Allergy (Unknown, Verified 06/14/23 14:30) Unknown ciprofloxacin Adverse Reaction (Intermediate, Verified 06/14/23 14:30) neuropathic pain lisinopril Adverse Reaction (Intermediate, Verified 06/14/23 14:30) Cough nitrofurantoin Adverse Reaction (Mild, Verified 06/14/23 14:30) GI side effects environmental Allergy (Unknown, Uncoded 06/14/23 14:30) Unknown flagyl Allergy (Unknown, Uncoded 06/14/23 14:30) Unknown From KEFLEX Allergy (Unknown, Uncoded 06/14/23 14:30) RASH Metoprolol Tartrate Allergy (Unknown, Uncoded 06/14/23 14:30) Unknown Sulfacet-R Allergy (Unknown, Uncoded 06/14/23 14:30) Unknown Medication List - Last Reconciled 06/14/23 by Tre Duffy MD acetaminophen 1,000 mg PO Q6H PRN alprazolam 0.25 mg PO BID PRN alum-mag hydroxide-simeth 200-200-20 mg/5 mL (Maalox Advanced) 5 mL PO Q6H PRN cholecalciferol (vitamin D3) 50 mcg PO DAILY citalopram 10 mg PO BEDTIME cyanocobalamin (vitamin B-12) (Vitamin B-12) 1,000 mcg PO DAILY diclofenac sodium 1% (Arthritis Pain (diclofenac)) 2 grams topical QID docusate sodium 100 mg PO BID fexofenadine 180 mg PO DAILY PRN fluticasone propionate 50 mcg/actuation 2 sprays intranasal DAILY losartan 25 mg PO DAILY melatonin 3 mg PO BEDTIME ondansetron HCl 4 mg PO Q8H PRN pantoprazole 40 mg PO DAILY@0630 polyethylene glycol 3350 17 grams PO DAILY PRN sucralfate 1 g PO QIDACHS 5 days HPI HPI Comments History of Present Illness Details Bella returns for follow-up regarding aortic stenosis as well as hypertension. She also has extreme degrees of anxiety at baseline. More recently, she states that she is beginning to 'slow down' and not feeling as good as before. Some atypical chest pains off and on. Lots of anxiety based symptoms. [facility]LY [facility] Medical History Neuropathy Arthritis GERD (gastroesophageal reflux disease) HTN (hypertension) Diverticulitis Anxiety Irritable bowel Heart murmur Surgical History Hx of esophagogastroduodenoscopy Hx of colonoscopy History of tonsillectomy History of appendectomy Family History Father No problems noted. Mother No problems noted. Social History Household Members: Children Housing: House Are you a primary patient care representative to a significant other at home: No Do you presently have visiting nurse or other home services: No Alcohol intake: never Patient Tobacco Use Status: Former Tobacco user Quit Date: 2013 Tobacco use type: Cigarette e-Cigarette/Vaping Use: Never Used Second Hand Smoke Exposure: No Advance Directives Date on File: 03/28/23 service: No Current occupational status: retired Cognitive needs: No Hearing needs: No Vision needs: Yes (glasses) Review of Systems Const Denies weakness ENT Denies dizziness Card Denies chest pain, Denies chest pain with activity, Denies syncope, Denies rapid heart rate, Denies pedal edema, Denies edema, Denies leg edema, Denies lightheadedness, Denies palpitations, Denies dyspnea, Denies dyspnea on exertion and Denies orthopnea Resp Denies cough, Denies dyspnea and Denies dyspnea on exertion GI Denies hematochezia and Denies change in stool character Musc Denies abnormal gait, Denies muscle cramps, Denies muscle weakness, Denies numbness, Denies radiating pain into limb and Denies tingling Neuro Denies abnormal gait, Denies dizziness, Denies syncope, Denies numbness, Denies tingling and Denies weakness Endo Denies palpitations Physical Exam Vital Signs: Last Vital Signs Pulse 91 06/14/23 14:31 BP 112/70 06/14/23 14:31 BMI result Body Mass Index 26.7 Const General: comfortable and no acute distress Orientation/consciousness: patient oriented x3 HEENT Other: Unremarkable Head: Yes normal to inspection Neck Neck: Yes normal visual inspection Chest Chest palpation & inspection: normal inspection of the chest Resp Auscultation: clear to auscultation bilaterally Cardio Palpation: normal PMI Heart sounds: S1 normal heart sound present, S2 normal heart sound present, no gallops, Murmur heart sound present systolic III/ and at the right sternal border and no rubs GI Palpation (GI): Soft to palpation Back/Spine/Pelvis Other: unremarkable Skin General skin exam: no rashes or lesions noted Neuro General: patient oriented x3 Extrem General: Yes normal to inspection Psych Mental Status: mental status grossly normal Assessment & Plan Assessment & Plan (1) Non-rheumatic aortic stenosis: Code(s): I35.0 - Nonrheumatic aortic (valve) stenosis Plan: In the most recent echocardiogram, mean gradient across aortic valve was 45 mm Hg with a peak of 76 mm Hg. Calculated valve area of 0.87 sq cm. LVEF 66%. Pathophysiology of aortic stenosis, treatment options discussed. We can start TAVR workup. Will move forward with diagnostic cardiac catheterization. Discussed about the procedure with patient she understands. (2) Essential hypertension: Code(s): I10 - Essential (primary) hypertension Plan: She has numerous listed allergies. Has tried several drugs in the past including metoprolol, amlodipine, lisinopril with some side effect or the other. Per last note, she was on valsartan but currently on losartan. No further changes made today. (3) Anxiety: Code(s): F41.9 - Anxiety disorder, unspecified Plan: Very high degrees of anxiety at baseline and follows up with psychiatrist as well as psychologist. Hopefully, she can get through the procedures without any panic attacks. Orders: Orders Cardiac Cath LT Diagnostic Today I35.0 - Nonrheumatic aortic (valve) stenosis Coding Level of Care Code Est Pt Level 4 (35464) Diagnoses Non-rheumatic aortic stenosis I35.0 Essential hypertension I10 Anxiety F41.9
[2023-06-14 14:31] VITALS: BP 112/70; PULSE 91; BMI 26.7
== END 2023-06-14 14:53 | disposition home or self-care (01) ==
PROVIDERS: PCP Physician Assistant; Visit Provider Internal Medicine
DX: I35.0 Nonrheumatic aortic (valve) stenosis (principal); I10 Essential (primary) hypertension; F41.9 Anxiety disorder, unspecified
CPT/HCPCS: 99214

== ENCOUNTER → 2023-06-14 14:18 | Outpatient (BNVA) | payer MEDICARE, OTHER, SELFPAY | PROVIDERS: PCP Physician Assistant; Visit Provider Internal Medicine | DX: I35.0 Nonrheumatic aortic (valve) stenosis (principal); I25.10 Atherosclerotic heart disease of native coronary artery without angina pectoris; I10 Essential (primary) hypertension; F41.9 Anxiety disorder, unspecified | CPT/HCPCS: 99212 ==

== ENCOUNTER 2023-06-19 14:23 | Outpatient (AMB) | payer MEDICARE, OTHER, SELFPAY ==
--- NOTE | 2023-06-19 14:24 | MHC.PC.OV ---
Vital Signs 06/19/23 14:32 Height 5 ft 6 in Weight 167 lb 8 oz BMI 27.0 BP 114/62 Blood Pressure Location Lt brachial Position Sitting Respiration 17 Pulse 105 H Pulse Source Pulse Oximeter Pulse Oximetry (%) 95 Oxygen Delivery Method Room Air Intake Visit Reasons: L-breast tender w/sensitivity to the axilla Intake Note: Pt is here for Left breast render w/sensitivity and discomfort to the axilla Lost And Found Clerk Required: No Accompanied by: Self / Same As Patient Allergies buspirone Allergy (Intermediate, Verified 06/19/23 14:50) Rash Sulfa (Sulfonamide Antibiotics) Allergy (Intermediate, Verified 06/19/23 14:50) RASH amoxicillin [From AUGMENTIN] Allergy (Unknown, Verified 06/19/23 14:50) PER H&P clavulanic acid [From AUGMENTIN] Allergy (Unknown, Verified 06/19/23 14:50) PER H&P garlic [GARLIC] Allergy (Unknown, Verified 06/19/23 14:50) PER H&P metronidazole [From FLAGYL] Allergy (Unknown, Verified 06/19/23 14:50) OCULAR MIGRAINES penicillamine Allergy (Unknown, Verified 06/19/23 14:50) Unknown ciprofloxacin Adverse Reaction (Intermediate, Verified 06/19/23 14:50) neuropathic pain lisinopril Adverse Reaction (Intermediate, Verified 06/19/23 14:50) Cough nitrofurantoin Adverse Reaction (Mild, Verified 06/19/23 14:50) GI side effects environmental Allergy (Unknown, Uncoded 06/19/23 14:50) Unknown flagyl Allergy (Unknown, Uncoded 06/19/23 14:50) Unknown From KEFLEX Allergy (Unknown, Uncoded 06/19/23 14:50) RASH Metoprolol Tartrate Allergy (Unknown, Uncoded 06/19/23 14:50) Unknown Sulfacet-R Allergy (Unknown, Uncoded 06/19/23 14:50) Unknown Medication List - Last Reconciled 06/19/23 by Nick Gomez PA-C acetaminophen 1,000 mg PO Q6H PRN alprazolam 0.25 mg PO BID PRN alum-mag hydroxide-simeth 200-200-20 mg/5 mL (Maalox Advanced) 5 mL PO Q6H PRN cholecalciferol (vitamin D3) 50 mcg PO DAILY citalopram 10 mg PO BEDTIME cyanocobalamin (vitamin B-12) (Vitamin B-12) 1,000 mcg PO DAILY diclofenac sodium 1% (Arthritis Pain (diclofenac)) 2 grams topical QID docusate sodium 100 mg PO BID fexofenadine 180 mg PO DAILY PRN fluticasone propionate 50 mcg/actuation 2 sprays intranasal DAILY losartan 25 mg PO DAILY melatonin 3 mg PO BEDTIME ondansetron HCl 4 mg PO Q8H PRN pantoprazole 40 mg PO DAILY@0630 polyethylene glycol 3350 17 grams PO DAILY PRN sucralfate 1 g PO QIDACHS 5 days Tobacco use date assessed: 05/15/23 Fall risk assessment: No Falls in past year Last assessed Fall Risk: 06/19/23 Dental Screening Dental Screen Date: 06/19/23 Did you have a dental visit in the last 12 months?: Yes Did you have a dental problem in the last 6 months where you did not have access to dental care?: No Was dental information given to patient?: Patient has dentist HPI L-breast tender w/sensitivity to the axilla HPI Details Patient is 82-year-old female here today for problem visit. She reports some left breast tenderness that radiates into the left axilla region. reports having this left breast tenderness over the last 3 weeks and a diagnostic left mammogram has been ordered. She has not palpated any actual masses in the left breast during self-breast exams. 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 Aortic valve replacement workup will be started and she is due for cardiac catheterization this week at [facility]. [facility] Medical History Neuropathy Arthritis GERD (gastroesophageal reflux disease) HTN (hypertension) Diverticulitis Anxiety Irritable bowel Heart murmur Surgical History Hx of esophagogastroduodenoscopy Hx of colonoscopy History of tonsillectomy History of appendectomy Family History Father No problems noted. Mother No problems noted. Social History Household Members: Children Housing: House Are you a primary field care coordinator to a significant other at home: No Do you presently have visiting nurse or other home services: No Alcohol intake: never Patient Tobacco Use Status: Former Tobacco user Quit Date: 2013 Tobacco use type: Cigarette e-Cigarette/Vaping Use: Never Used Second Hand Smoke Exposure: No Advance Directives Date on File: 03/28/23 service: No Current occupational status: retired Cognitive needs: No Hearing needs: No Vision needs: Yes (glasses) Questionnaire Thrive Questionnaire Date Thrive assessed: 01/23/23 PAIGE-7 AMB Questionnaire PAIGE-7 Date PAIGE - 7 assessed: 10/06/22 Source: Developed by Drs. Anatoliy Gavin, Peyton Hunt, Austyn Weber and colleagues, with an educational kentrell from [employer]. Review of Systems Const Denies headache(s) Eyes Denies loss of vision ENT Denies vertigo, Denies dizziness, Denies headache(s) and Denies sore throat Card Denies chest pain, Denies leg edema and Denies lightheadedness Resp Denies cough, Denies hemoptysis and Denies wheezing GI Denies abdominal pain, Denies melena, Denies constipation, Denies diarrhea and Denies vomiting Denies urinary frequency, Denies dysuria and Denies urinary urgency Musc Denies arthralgias, Denies joint swelling, Denies numbness and Denies tingling Neuro Denies Abnormal speech present, Denies behavioral changes, Denies vertigo, Denies dizziness, Denies headache(s), Denies loss of vision, Denies memory loss, Denies numbness and Denies tingling Psych Denies anxiety, Denies behavioral changes, Denies depression, Denies memory loss and Denies panic attacks Pradip/Lymph Denies easy bleeding and Denies easy bruising Aller/Immun Denies wheezing Physical exam (Primary Care) Vital Signs: Last Vital Signs Pulse 105 H 06/19/23 14:32 Resp 17 06/19/23 14:32 BP 114/62 06/19/23 14:32 Pulse Ox 95 06/19/23 14:32 Oxygen Delivery Method Room Air 06/19/23 14:32 BMI result Body Mass Index 27.0 Tobacco/Smoking Status: Tobacco use Status Tobacco use date assessed 09/11/23 10/16/23 14:25 Patient Tobacco Use Status Former Tobacco user 06/19/23 14:25 Tobacco use type Cigarette 06/19/23 14:25 e-Cigarette/Vaping Use Never Used 06/19/23 14:25 Thrive Assessment: Date of Thrive Assessment Date Thrive assessed 01/23/23 06/19/23 14:25 Const General: healthy appearing, no acute distress, alert and awake Nutritional Appearance: well nourished Orientation/consciousness: oriented to person, oriented to place and oriented to time HENMT Ears: TM's normal bilaterally General nose exam: Normal nasal mucous membranes and turbinates present Eyes Conjunctivae: conjunctivae normal Sclerae: sclerae normal Pupils: Equal, round and reactive pupils present Neck Neck: Yes no lymphadenopathy and Yes no JVD Thyroid: Thyroid normal Carotids: no bruits Resp Effort & Inspection: normal respiratory effort and not tachypneic Auscultation: no crackles, no rales, no rhonchi and no wheezes Cardio Rate: regular rate Rhythm: regular rhythm Heart sounds: Murmur heart sound present systolic and normal S1 and S2 GI Palpation (GI): Soft to palpation, nontender, no hepatomegaly and no splenomegaly Auscultation: normal bowel sounds Skin General skin exam: no rashes or lesions noted and dry skin Neuro General: oriented to person, oriented to place and oriented to time Cranial nerves: Yes Equal, round and reactive pupils present Speech: No Abnormal speech present Gait exam (Neuro): Normal gait present Motor exam (neuro): no tremor noted Extrem Right upper extremity: full ROM Left upper extremity: full ROM Right lower extremity: full ROM; no edema Left lower extremity: full ROM; no edema Psych Mental Status: mental status grossly normal Speech and movement: Normal speech and movement present Affect: normal affect Attitude: cooperative Thought process: Normal thought process present Assessment and Plan Assessment & Plan (1) Breast pain, left: Code(s): N64.4 - Mastodynia Plan: As per HPI patient reports left lateral breast pain left axillary tenderness to palpation. Will be sent for a diagnostic left mammogram. Has had regular mammograms over the years without any abnormalities. (2) Aortic stenosis: Code(s): I35.0 - Nonrheumatic aortic (valve) stenosis Qualifiers: Cardiac valve disease etiology: nonrheumatic Qualified Code(s): I35.0 - Nonrheumatic aortic (valve) stenosis Plan: Continues to be worked up by Cardiology for her aortic stenosis. Aortic valve replacement workup will be started with cardiac catheterization being done at [facility] this week. She continues to have a grade 2 3 systolic murmur on physical exam. No overt signs heart failure noted. Coding Level of Care Code Est Pt Level 3 (29051) Diagnoses Breast pain, left N64.4 Nonrheumatic aortic valve stenosis I35.0 Cardiac valve disease etiology: nonrheumatic
[2023-06-19 14:32] VITALS: BP 114/62; PULSE 105; RESP 17; O2SAT 95; BMI 27.0
== END 2023-06-19 15:12 | disposition home or self-care (01) ==
PROVIDERS: PCP Physician Assistant; Visit Provider Physician Assistant
DX: N64.4 Mastodynia (principal); I35.0 Nonrheumatic aortic (valve) stenosis
CPT/HCPCS: 99213

== ENCOUNTER → 2023-06-27 23:59 | Outpatient (BNV) | payer MEDICARE, OTHER, SELFPAY | PROVIDERS: PCP Physician Assistant; Visit Provider Internal Medicine Cardiovascular Disease | DX: I20.89 Other forms of angina pectoris (principal); I35.0 Nonrheumatic aortic (valve) stenosis | CPT/HCPCS: 93458; 99152 ==

== ENCOUNTER 2023-07-07 10:38 | Emergency (ER) | payer MEDICARE, OTHER, SELFPAY ==
--- NOTE | ~2023-07-07 | US_ITS ---
EXAMINATION: US ABDOMEN LIMITED CLINICAL INFORMATION: Right quadrant pain. COMPARISON: None available. TECHNIQUE: Real-time imaging of the right upper quadrant abdominal viscera. FINDINGS: PANCREAS: Visualized portions of pancreas are grossly unremarkable but portions of the head and tail are obscured by overlying bowel gas LIVER: Tiny incidental cysts are seen largest measuring 1.4 cm in size in the right liver. The liver is normal in size. The liver contour is normal. Parenchymal echogenicity is normal. No suspicious focal hepatic lesion. There is no intrahepatic biliary duct dilatation seen. GALLBLADDER: Tiny echogenic 3 mm polyp or gallstone along the dependent aspect of the otherwise unremarkable gallbladder. The gallbladder is physiologically distended without evidence of sludge, wall thickening or pericholecystic fluid. COMMON BILE DUCT: Normal in caliber measuring 0.3 cm in diameter. RIGHT KIDNEY: Normal. No hydronephrosis. No renal calculi or focal parenchymal lesions. The kidney measures 9.8 cm in maximum dimension. FREE FLUID: None. US/US abdomen limited IMPRESSION: Tiny echogenic 3 mm polyp or gallstone along the dependent aspect of the otherwise unremarkable gallbladder. No biliary ductal dilatation.
--- NOTE | ~2023-07-07 | CT_ITS ---
EXAMINATION: CT ABDOMEN AND PELVIS WITH CONTRAST CLINICAL INFORMATION: Weight loss. COMPARISON: 12/09/2022 TECHNIQUE: Multidetector volumetric images were obtained from the superior aspect of the liver through the pubic symphysis following administration 85 mL of Omnipaque 350 intravenous contrast. Sagittal and coronal reformatted images were obtained on the technologist's workstation. Oral contrast: No This CT examination was performed using dose optimization techniques as appropriate, variously including the following: *Automated exposure control *Adjustment of mA and/or kV according to patient size (this includes techniques or standardized protocols for targeted exams where dose is matched to indication/reason for exam; i.e. extremities or head) *Use of iterative reconstruction technique DLP: 494 mGy-cm FINDINGS: LUNG BASES: The visualized lung bases are unremarkable. LIVER, GALLBLADDER, AND BILIARY TREE: The liver is normal in size and contour. No suspicious hepatic lesion or biliary ductal dilatation is present. The gallbladder is distended. PANCREAS: Unremarkable. SPLEEN: Unremarkable. ADRENAL GLANDS: Unremarkable. KIDNEYS AND URETERS: The kidneys are normal in size, shape, and attenuation. Nonobstructing left renal calculi. No hydronephrosis. No perinephric stranding. BLADDER: Left bladder wall thickening despite underdistention. GASTROINTESTINAL TRACT: Possible gastric wall thickening. Diverticular disease of the sigmoid colon. Marked fecal retention in the colon. No small bowel obstruction. ABDOMINAL WALL: No significant hernia is appreciated. LYMPH NODES: No bulky lymphadenopathy. VASCULAR: Infrarenal abdominal aortic aneurysm measuring 3.1 x 3.2 cm. PELVIC VISCERA: Unremarkable. OSSEOUS STRUCTURES: Diffuse osteopenia. Nonunited healed comminuted fractures involving the left superior and inferior pubic rami as well as the right hemisacrum. CT/CT abdomen pelvis w IV con IMPRESSION: Possible gastric wall thickening. Consideration may be given to direct visualization. Distended gallbladder. This may be correlated with right upper quadrant ultrasound. Constipation. Nonobstructing left renal calculi. No hydronephrosis. Infrarenal abdominal aortic aneurysm measures 3.1 x 3.2 cm. Recommend follow-up every 3 years. Reference: J Am Billy Radiol 2013; 10 (10): 789-794.
[2023-07-07 11:24] VITALS: BP 135/81; PULSE 87; RESP 18; TEMP 36.8; O2SAT 97; BMI 26.6
--- NOTE | 2023-07-07 11:25 | ED_ITS ---
HPI - General Adult General Chief complaint: Abdominal Pain Stated complaint: Multiple Issues Time Seen by Provider: 07/07/23 12:59 History of Present Illness HPI narrative: 82 F patient; PMH arthritis, neuropathy, GERD, HTN, diverticulitis, IBS, aortic stenosis; presents from home reporting dark daily bowel movements since 06/21. She is concerned that she did not at baseline used to have a bowel movement multiple times a day. She states they are long and snake like . Patient has been following with GI and reports she was referred to the ED for a scan . She endorses approx 20lb weight loss in the last 6 months that was unintentional. Last colonoscopy and EGD was 01/09/2023 and patient reports it was reassuring. She denies associated nausea/vomiting, diarrhea, abdominal pain, chest pain, SOB, lightheadedness, syncope, melena or hematochezia. The patient states once before her symptoms started she dug a bowel movement out with her fingers and had a small amount of bright red blood at that time, but denies any other bleeding rectally. Related Data Home Medications Medication Instructions Recorded Confirmed acetaminophen 500 mg tablet 1,000 mg PO Q6H PRN Pain 03/28/23 06/19/23 alprazolam 0.25 mg tablet 0.25 mg PO BID PRN Anxiety 03/28/23 06/19/23 citalopram 10 mg tablet 10 mg PO BEDTIME 03/28/23 06/19/23 docusate sodium 100 mg capsule 100 mg PO BID 03/28/23 06/19/23 fexofenadine 180 mg tablet 180 mg PO DAILY PRN Allergic 03/28/23 06/19/23 Symptoms ondansetron HCl 4 mg tablet 4 mg PO Q8H PRN Nausea 03/28/23 06/19/23 polyethylene glycol 3350 17 gram 17 g PO DAILY PRN Constipation 03/28/23 06/19/23 oral powder packet Previous Rx's Medication Instructions Recorded cholecalciferol (vitamin D3) 50 50 mcg PO DAILY #30 tabs 03/31/23 mcg (2,000 unit) tablet fluticasone propionate 50 2 spray intranasal DAILY #16 grams 03/31/23 mcg/actuation nasal spray,suspension losartan 25 mg tablet 25 mg PO DAILY #30 tabs 03/31/23 melatonin 3 mg tablet 3 mg PO BEDTIME #30 tabs 03/31/23 aluminum-mag hydroxide-simethicone 5 ml PO Q6H PRN dyspepsia #355 mL 04/21/23 200 mg-200 mg-20 mg/5 mL oral susp (Maalox Advanced) pantoprazole 40 mg tablet,delayed 40 mg PO DAILY@0630 #90 tabs 05/10/23 release diclofenac sodium 1 % topical gel 2 g topical QID #100 grams 05/11/23 (Arthritis Pain (diclofenac)) cyanocobalamin (vitamin B-12) 1,000 mcg PO DAILY #30 tabs 05/22/23 1,000 mcg tablet (Vitamin B-12) sucralfate 1 gram tablet 1 g PO QIDACHS 5 days #20 tabs 06/05/23 cefuroxime axetil 500 mg tablet 500 mg PO BID 7 days #14 tabs 07/07/23 Allergies Allergy/AdvReac Type Severity Reaction Status Date / Time buspirone Allergy Intermediate Rash Verified 07/07/23 11:27 Sulfa (Sulfonamide Allergy Intermediate RASH Verified 07/07/23 11:27 Antibiotics) amoxicillin [From AUGMENTIN] Allergy Unknown PER H&P Verified 07/07/23 11:27 clavulanic acid Allergy Unknown PER H&P Verified 07/07/23 11:27 [From AUGMENTIN] garlic [GARLIC] Allergy Unknown PER H&P Verified 07/07/23 11:27 metronidazole [From FLAGYL] Allergy Unknown OCULAR Verified 07/07/23 11:27 MIGRAINES penicillamine Allergy Unknown Unknown Verified 07/07/23 11:27 ciprofloxacin AdvReac Intermediate neuropathic Verified 07/07/23 11:27 pain lisinopril AdvReac Intermediate Cough Verified 07/07/23 11:27 nitrofurantoin AdvReac Mild GI side Verified 07/07/23 11:27 effects environmental Allergy Unknown Unknown Uncoded 06/19/23 14:50 flagyl Allergy Unknown Unknown Uncoded 06/19/23 14:50 From KEFLEX Allergy Unknown RASH Uncoded 06/19/23 14:50 Metoprolol Tartrate Allergy Unknown Unknown Uncoded 06/19/23 14:50 Sulfacet-R Allergy Unknown Unknown Uncoded 06/19/23 14:50 Review of Systems 2 Review of Systems: Yes all other systems are reviewed and are negative PMFSH Past Medical History Attestation statement: The following information was validated with the patient. Source: old records reviewed Medical History Neuropathy Arthritis GERD (gastroesophageal reflux disease) HTN (hypertension) Diverticulitis Anxiety Irritable bowel Heart murmur Surgical History Hx of esophagogastroduodenoscopy Hx of colonoscopy History of tonsillectomy History of appendectomy Family History Family History Father No problems noted. Mother No problems noted. Social History Social History Household Members: Children Housing: House Are you a primary youth care specialist to a significant other at home: No Do you presently have visiting nurse or other home services: No Alcohol intake: never Patient Tobacco Use Status: Former Tobacco user Quit Date: 2013 Tobacco use type: Cigarette Smoked in Last 30 Days: No e-Cigarette/Vaping Use: Never Used Second Hand Smoke Exposure: No Use of substances other than those prescribed or required for medical reasons: No Advance Directives: Yes Advance Directives on File: Yes Advance Directives Date on File: 03/28/23 service: No Current occupational status: retired Cognitive needs: No Hearing needs: No Vision needs: Yes (glasses) Physical Exam ED Vital Signs: Vital Signs - 24 hr 07/07/23 11:24 07/07/23 12:11 Temperature 98.2 F 98.0 F Pulse Rate 87 82 Respiratory Rate 18 16 Blood Pressure 135/81 163/87 H Pulse Oximetry 97 96 Oxygen Delivery Method Room Air Room Air BMI result Body Mass Index 26.6 Patient is afebrile and hemodynamically stable Const General: cooperative and comfortable Orientation/consciousness: oriented to person, oriented to place and oriented to time HENMT Head: Yes normal to inspection and Yes atraumatic Neck Neck: Yes normal visual inspection and Yes full ROM Chest Chest palpation & inspection: normal inspection of the chest and no tenderness Resp Effort & Inspection: normal respiratory effort, able to speak in complete sentences and no respiratory distress Auscultation: clear to auscultation bilaterally Cardio Rate: regular rate Rhythm: regular rhythm Peripheral pulses: Peripheral pulses 2+ throughout GI Inspection: Yes normal to inspection Palpation (GI): Soft to palpation, nontender, no guarding and not rigid Auscultation: normal bowel sounds Back/Spine/Pelvis Back: No back tenderness Neuro General: oriented to person, oriented to place, oriented to time and gait normal Course Course Course Narrative: This is a rapid medical exam: Additional HPI, ROS, PE not included below will be deferred to primary provider. Patient is an 82-year-old female presenting to the emergency department with complaint of dark bowel movements since 06/21 which she describes as long, dark snakes. States she called her nurse today and was advised to be evaluated in the ED. Also describes a lower abdominal burning sensation but denies nausea, vomiting, or diarrhea. Plan: labs, UA Reevaluation(s) Reevaluation #1: Patient is comfortable and denies abdominal pain. She is ambulating with a steady gait. Long discussion with patient on her concerns. She reports she would prefer a CT Abdomen/Pelvis as that was what her GI doctor sent her in for. Reviewed triage orders of UA, CBC and BMP, will add LFTs and lipase. Will order CT Abdomen/Pelvis w IV Contrast. Time: 13:10 Reevaluation #2: Labs reviewed - no evidence of leukocytosis, baseline anemia. Electrolyte appropriate. No transaminitis or elevated alk phos. CT Abdomen/Pelvis with evidence of distended gallbladder - reassessed patient who reports occasional RUQ abdominal pain. Ordered US RUQ. Reevaluation #3: US reviewed - small gallstone without evidence of cholecystitis. UA reviewed - small leukocyte esterase, 6 - 10 RBC, 11 - 20 WBC,3 - 5 squamous cells. Culture pending. Will treat due to patient's reported lower abdominal pain with burning sensation while in triage, originally denied to this provider. Provided first dose in the ED. Plan: Discharge to home with PCP and GI follow up Return precautions given Medications Administered Discontinued Medications Generic Name Dose Route Start Last Admin Trade Name Freq PRN Reason Stop Dose Admin Acetaminophen 650 mg 07/07/23 13:35 07/07/23 14:16 Acetaminophen 325 Mg Tablet PO 07/07/23 13:36 650 mg ONCE ONE Administration Iohexol 100 ml 07/07/23 15:50 07/07/23 15:50 Iohexol 350 Mg/Ml 100 Ml Infus..Btl IV 07/07/23 15:51 85 ml ONCE ONE Administration Medical Decision Making Lab Data 07/07/23 13:28 07/07/23 13:28 Labs: Lab Results 07/07/23 07/07/23 07/07/23 Range/Units 13:28 13:29 15:30 WBC 3.7 L (4.8-10.8) X10*3/uL RBC 3.30 L (4.20-5.50) X10*6/uL Hgb 10.0 L (12.0-16.0) g/dl Hct 30.6 L (37.0-47.0) % MCV 92.7 (80.0-98.0) fL MCH 30.3 (27.0-33.0) pg MCHC 32.7 (31.0-35.0) g/dl RDW 13.6 (11.0-16.0) % Plt Count 131 L (160-400) X10*3/uL MPV 11.4 (9.4-12.3) fL Immature Gran % (Auto) 0.3 (0.0-0.4) % Neut % (Auto) 80.1 H (45-73) % Lymph % (Auto) 12.4 L (20-40) % [place] % (Auto) 5.4 (2-11) % Eos % (Auto) 1.3 (0-4) % Baso % (Auto) 0.5 (0-2) % Lymph # (Auto) 0.5 L (1.2-4.9) X10*3/uL [place] # (Auto) 0.2 (0.1-1.2) X10*3/uL Eos # (Auto) 0.1 (0.0-0.4) X10*3/uL Baso # (Auto) 0.0 (0.0-0.2) X10*3/uL Abs Immat Gran (auto) 0.01 (0.00-0.03) X10*3/uL Absolute Neuts (auto) 3.0 (2.0-8.3) x10*3/uL Absolute Nucleated RBC 0.000 (0.0-0.012) X10*3/uL Nucleated RBC % (auto) 0.0 (0.0-0.2) /100WBC Sodium 138 (135-145) mmol/L Potassium 4.1 (3.3-5.1) mmol/L Chloride 104 (96-108) mmol/L Carbon Dioxide 26 (22-29) mmol/L Anion Gap 12 (12-20) BUN 15 (9-16) mg/dL Creatinine 0.76 (0.5-1.4) mg/dL Estim Creat Clear Calc 57.0 Estimated GFR > 60 Random Glucose 92 (60-115) mg/dL Calcium 9.8 (8.4-10.2) mg/dL Total Bilirubin 0.5 (0.0-1.0) mg/dL AST 17 (5-31) U/L ALT 8 (0-31) U/L Alkaline Phosphatase 105 (39-117) U/L Total Protein 7.0 (6.5-8.0) g/dL Albumin 4.1 (3.5-5.0) g/dL Lipase 16 (8-78) U/L Urine Color Yellow Urine Appearance Cloudy Urine pH 5.5 (5.0-9.0) Ur Specific [place] 1.020 (1.005-1.025) Urine Protein Negative (Neg-Trace) mg/dL Urine Glucose (UA) Negative (Negative) mg/dL Urine Ketones Negative (Negative) mg/dL Urine Blood Trace H (Negative) Urine Nitrite Negative (Negative) Ur Leukocyte Esterase Small (1+) H (Negative) Urine RBC 6-10 H (0-2) /HPF Urine WBC 11-20 H (0-5) /HPF Ur Squamous Epith Cells 3-5 (0-2) /HPF Urine Bacteria None Seen (None Seen) Hyaline Casts 0-2 (0-2) /LPF Discharge Plan Discharge Clinical Impression: Acute UTI Patient Disposition: Home, Self-Care Instructions: Urinary Tract Infection in Women (DC) Additional Instructions: As we discussed, you were seen today for frequent bowel movements. Your CT Abdomen/Pelvis and RUQ US showed only a small gallstone. Your labs were reassuring but your urine showed a small UTI. A urine culture was ordered and you will be called if the results need to change the type of antibiotic you are on. Please fish bait picker your antibiotic from the pharmacy and take it twice a day for 7 days. Follow up with your GI and PCP regarding your recent ED visit within the next 2- 3 days. Return to the ED for abdominal pain, fever, or nausea/vomiting. Prescriptions: New cefuroxime axetil 500 mg tablet 500 mg PO BID 7 Days Qty: 14 0RF No Action pantoprazole 40 mg tablet,delayed release (DR/EC) 40 mg PO DAILY@0630 Qty: 90 1RF cyanocobalamin (vitamin B-12) [Vitamin B-12] 1,000 mcg tablet 1,000 mcg PO DAILY Qty: 30 3RF sucralfate 1 gram tablet 1 g PO QIDACHS 5 Days Qty: 20 0RF polyethylene glycol 3350 17 gram powder in packet 17 g PO DAILY PRN (Reason: Constipation) citalopram 10 mg tablet 10 mg PO BEDTIME ondansetron HCl 4 mg tablet 4 mg PO Q8H PRN (Reason: Nausea) alprazolam 0.25 mg tablet 0.25 mg PO BID PRN (Reason: Anxiety) docusate sodium 100 mg capsule 100 mg PO BID fexofenadine [[place]] 180 mg Tablet 180 mg PO DAILY PRN (Reason: Allergic Symptoms) acetaminophen 500 mg Tablet 1,000 mg PO Q6H PRN (Reason: Pain) losartan 25 mg tablet 25 mg PO DAILY Qty: 30 3RF fluticasone propionate 50 mcg/actuation spray,suspension 2 spray intranasal DAILY Qty: 16 0RF cholecalciferol (vitamin D3) 50 mcg (2,000 unit) tablet 50 mcg PO DAILY Qty: 30 3RF melatonin 3 mg tablet 3 mg PO BEDTIME Qty: 30 0RF alum-mag hydroxide-simeth [Maalox Advanced] 200-200-20 mg/5 mL suspension 5 ml PO Q6H PRN (Reason: dyspepsia) Qty: 355 0RF diclofenac sodium [Arthritis Pain (diclofenac)] 1 % gel 2 g topical QID Qty: 100 0RF Rx Instructions: apply to side of neck
[2023-07-07 12:11] VITALS: BP 163/87; PULSE 82; RESP 16; TEMP 36.7; O2SAT 96
[2023-07-07 13:33] LABS: MANUAL DIFF FLAG NO
[2023-07-07 13:37] LABS: Basophils Percent Auto 0.5 % (0-2); Eosinophils Absolute Auto 0.1 X10*3/uL (0.0-0.4); Eosinophils Percent Auto 1.3 % (0-4); Hematocrit 30.6 % (37.0-47.0); Imm Gran Abs Auto 0.01 X10*3/uL (0.00-0.03); Imm Gran Pct Auto 0.3 % (0.0-0.4); Lymphocytes Absolute Auto 0.5 X10*3/uL (1.2-4.9); Lymphocytes Percent Auto 12.4 % (20-40); Mean Corpuscular HGB Conc 32.7 g/dl (31.0-35.0); Mean Corpuscular Hemoglobin 30.3 pg (27.0-33.0); Mean Corpuscular Volume 92.7 fL (80.0-98.0); Mean Platelet Volume 11.4 fL (9.4-12.3); Monocytes Absolute Auto 0.2 X10*3/uL (0.1-1.2); Monocytes Percent Auto 5.4 % (2-11); Neutrophils Percent Auto 80.1 % (45-73); Platelet Count 131 X10*3/uL (160-400); Red Cell Distribution Width 13.6 % (11.0-16.0); White Blood Count 3.7 X10*3/uL (4.8-10.8)
[2023-07-07 13:46] LABS: Lipase 16 U/L (8-78)
[2023-07-07 13:49] LABS: Alanine Aminotransferase 8 U/L (0-31); Albumin Level 4.1 g/dL (3.5-5.0); Alkaline Phosphatase 105 U/L (39-117); Anion Gap 12 (12-20); Aspartate Amino Transferase 17 U/L (5-31); Bilirubin Total 0.5 mg/dL (0.0-1.0); Blood Urea Nitrogen 15 mg/dL (9-16); Calcium 9.8 mg/dL (8.4-10.2); Carbon Dioxide 26 mmol/L (22-29); Chloride 104 mmol/L (96-108); Estimated Glomerular Filt Rate > 60; Glucose Random 92 mg/dL (60-115); Potassium 4.1 mmol/L (3.3-5.1); Sodium 138 mmol/L (135-145)
[2023-07-07] MEDS: Acetaminophen 325 MG TABLET 650 MG PO (14:16)
--- NOTE | 2023-07-07 15:03 | PC.NURSE ---
20G placed to right wrist
[2023-07-07 15:38] LABS: Appearance Urine Cloudy; Color Urine Yellow; Glucose Urine UA Negative (Negative); Leukocyte Esterase Urine Small (1+) (Negative); Nitrite Urine Negative (Negative); PH 5.5 (5.0-9.0); UMIC TRIGGER UACC YES; Urine Blood Trace (Negative); Urine Ketones Negative (Negative); Urine Protein Negative (Neg-Trace)
[2023-07-07] MEDS: iohexoL 350 MG/ML 100 ML INFUS..BTL IV (15:50)
[2023-07-07 16:37] LABS: Bacteria Urine None Seen (None Seen); Hyaline Casts Urine 0-2 /LPF (0-2); UACC Culture Trigger YES
[2023-07-07] MEDS: cefuroxime axetiL 500 MG TABLET PO (19:32)
== END 2023-07-07 19:50 | disposition home or self-care (01) ==
PROVIDERS: Registered Nurse Emergency; Emergency Provider Emergency Medicine; PCP Physician Assistant
DX: N39.0 Urinary tract infection, site not specified (principal); R10.13 Epigastric pain; Z87.891 Personal history of nicotine dependence; Z79.899 Other long term (current) drug therapy
CPT/HCPCS: 36415; 74177; 76705; 80053; 81001; 83690; 85025; 87086; 99284; Q9967

== ENCOUNTER 2023-07-12 12:41 | Outpatient (AMB) | payer MEDICARE, OTHER, SELFPAY ==
--- NOTE | 2023-07-12 12:44 | MHC.OFFVIS ---
Intake Vital Signs 07/12/23 12:50 Height 5 ft 5 in Weight 172 lb 6.424 oz BMI 28.7 BP 98/70 Blood Pressure Location Lt brachial Position Sitting Pulse 91 Intake Visit Reasons: 2 wk s/p cath ? 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 Accompanied by: Self / Same As Patient Allergies buspirone Allergy (Intermediate, Verified 07/12/23 12:51) Rash Sulfa (Sulfonamide Antibiotics) Allergy (Intermediate, Verified 07/12/23 12:51) RASH amoxicillin [From AUGMENTIN] Allergy (Unknown, Verified 07/12/23 12:51) PER H&P clavulanic acid [From AUGMENTIN] Allergy (Unknown, Verified 07/12/23 12:51) PER H&P garlic [GARLIC] Allergy (Unknown, Verified 07/12/23 12:51) PER H&P metronidazole [From FLAGYL] Allergy (Unknown, Verified 07/12/23 12:51) OCULAR MIGRAINES penicillamine Allergy (Unknown, Verified 07/12/23 12:51) Unknown ciprofloxacin Adverse Reaction (Intermediate, Verified 07/12/23 12:51) neuropathic pain lisinopril Adverse Reaction (Intermediate, Verified 07/12/23 12:51) Cough nitrofurantoin Adverse Reaction (Mild, Verified 07/12/23 12:51) GI side effects environmental Allergy (Unknown, Uncoded 07/12/23 12:51) Unknown flagyl Allergy (Unknown, Uncoded 07/12/23 12:51) Unknown From KEFLEX Allergy (Unknown, Uncoded 07/12/23 12:51) RASH Metoprolol Tartrate Allergy (Unknown, Uncoded 07/12/23 12:51) Unknown Sulfacet-R Allergy (Unknown, Uncoded 07/12/23 12:51) Unknown Medication List - Last Reconciled 07/12/23 by Guillaume Callahan MD acetaminophen 1,000 mg PO Q6H PRN alprazolam 0.25 mg PO BID PRN alum-mag hydroxide-simeth 200-200-20 mg/5 mL (Maalox Advanced) 5 mL PO Q6H PRN cefuroxime axetil 500 mg PO BID 7 days cholecalciferol (vitamin D3) 50 mcg PO DAILY citalopram 10 mg PO BEDTIME cyanocobalamin (vitamin B-12) (Vitamin B-12) 1,000 mcg PO DAILY diclofenac sodium 1% (Arthritis Pain (diclofenac)) 2 grams topical QID docusate sodium 100 mg PO BID fexofenadine 180 mg PO DAILY PRN fluticasone propionate 50 mcg/actuation 2 sprays intranasal DAILY losartan 25 mg PO DAILY melatonin 3 mg PO BEDTIME ondansetron HCl 4 mg PO Q8H PRN HPI HPI Comments History of Present Illness Details 82-year-old female who is here for transcatheter aortic valve replacement assessment for severe aortic valve stenosis. She has severe aortic valve by echocardiography. She has been experiencing fatigue and chest discomfort. She underwent cardiac cath which did not show any CAD in LAD and codominant LCx. The RCA could not be canalized and she developed radial spasm and we decided to get further info based on the CTA. She returns and continues to have fatigue and chest pains which was random. She is not very active physically but feels that her fatigue is the main reason which stops her from exercising. No issues with bleeding. [facility], [facility] Medical History Neuropathy Arthritis GERD (gastroesophageal reflux disease) HTN (hypertension) Diverticulitis Anxiety Irritable bowel Heart murmur Surgical History Hx of esophagogastroduodenoscopy Hx of colonoscopy History of tonsillectomy History of appendectomy Family History Father No problems noted. Mother No problems noted. Social History Household Members: Children Housing: House Are you a primary healthcare science specialist to a significant other at home: No Do you presently have visiting nurse or other home services: No Alcohol intake: never Patient Tobacco Use Status: Former Tobacco user Quit Date: 2013 Tobacco use type: Cigarette e-Cigarette/Vaping Use: Never Used Second Hand Smoke Exposure: No Advance Directives Date on File: 03/28/23 service: No Current occupational status: retired Cognitive needs: No Hearing needs: No Vision needs: Yes (glasses) Review of Systems Const Denies weakness ENT Denies dizziness Card Denies chest pain, Denies chest pain with activity, Denies syncope, Denies rapid heart rate, Denies pedal edema, Denies edema, Denies leg edema, Denies lightheadedness, Denies palpitations, Denies dyspnea, Denies dyspnea on exertion and Denies orthopnea Resp Denies cough, Denies dyspnea and Denies dyspnea on exertion GI Denies hematochezia and Denies change in stool character Musc Denies abnormal gait, Denies muscle cramps, Denies muscle weakness, Denies numbness, Denies radiating pain into limb and Denies tingling Neuro Denies abnormal gait, Denies dizziness, Denies syncope, Denies numbness, Denies tingling and Denies weakness Endo Denies palpitations Physical Exam Vital Signs: Last Vital Signs Pulse 91 07/12/23 12:50 BP 98/70 07/12/23 12:50 BMI result Body Mass Index 28.7 GENERAL APPEARANCE: in no acute distress, pleasant. NECK: no carotid bruit, no jugular venous distention. SKIN: no suspicious lesions, warm and dry. HEART: ESM aortic area, no 2nd heart sound, regular rate and rhythm. LUNGS: clear to auscultation bilaterally. ABDOMEN: soft, nontender. EXTREMITIES: no edema. PERIPHERAL PULSES: equal. NEUROLOGIC: No gross deficits, AAO X 3 Results Reviewed Results Reviewed: Echo: [address] [address] Cardiology Report Signed Patient: Bella Henley MR#: [id number] : 1940 Acct:[id number] Age/Sex: 82 / F ADM Date: 06/06/23 Loc: .[facility] Attending Dr: Tre Duffy MD Ordering Physician: Tre Duffy MD Date of Service: 06/06/23 Procedure(s): CA echo transthoracic complete Accession Number(s): cc: Tre Duffy MD~ Transthoracic Echocardiogram Patient (Last, First, Middle): Bella Henley G Gender: Female Date of : 1940 Age: 82 Procedure Date: 06/06/2023 Procedure Type: Transthoracic Echocardiogram Location: OP Height: 167.64 cm Weight: 73.94 kg BSA: 1.83 m2 Heart Rate: bpm BP: 124 / 60 mmHg Economics 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 The calculated ejection fraction is 66% by biplane method. - There is moderately increased left ventricular wall thickness. - There is severe aortic valve stenosis. - There is moderate mitral annular calcification. Findings Left Ventricle Normal left ventricular cavity size. There is moderately increased left ventricular wall thickness. The left ventricular systolic function is normal. The calculated ejection fraction is 66% by biplane method. There is no evidence of regional wall motion abnormalities. Evidence suggests grade I (mild) diastolic dysfunction. Right Ventricle Normal right ventricular cavity size and systolic function. Atria The left atrium is mildly dilated. The right atrium is normal in size. Aortic Valve There is moderate calcification of the aortic valve. There is severe aortic valve stenosis. The peak aortic velocity is 4.35 m/s with a calculated peak gradient of 76 mmHg. The mean gradient is 45 mmHg. The aortic valve area is 0.87 cm2. There is no aortic valve regurgitation. Mitral Valve There is moderate mitral annular calcification. There is mild mitral valve regurgitation. There is no mitral valve stenosis. Pulmonic Valve The pulmonic valve is likely normal. Tricuspid Valve There is trace tricuspid valve regurgitation. There is no evidence of pulmonary hypertension. Great Vessels There is mild dilatation of the ascending aorta measuring 4.00 cm. Venous The inferior vena cava is normal in size and collapses greater than 50% with inspiration. Pericardium/Pleural There is no evidence of pericardial effusion. Prior Study Comparison Changes noted compared to prior study dated: 08/15/2023. Measurements 2D Linear Measurements IVSd: 1.44 0.6-0.9/0.6-1.0 cm LVIDd: 3.08 3.9-5.3/4.2-5.9 cm LVIDd Index: 1.68 2.4-3.2/2.2-3.1 cm/m2 LVIDs: 2.32 2.0-3.6 cm LVPWd: 1.41 0.7-1.1 cm Ao Root: 3.70 2.1-3.5 cm LA Diam: 2.70 2.7-3.8/3.0-4.0 cm LAIDs Index: 1.48 1.5-2.3 cm/m2 LV Mass: 186.48 67-162/88-224 g LV Mass Index: 101.90 43-95/49-115 g/m2 LVOT Diam: 2.00 3.0+(-)1.3 cm 2D Systolic Function EF 4C: 64.80 >55% EF 2C: 67.30 >55% EF BiP: 66.30 >55% Mitral Valve MV Pk E: 0.78 MV PK A: 1.08 MV Decel Time: 242.00 E/A: 0.70 E'Lateral: 6.85 E'Medial: 4.03 E/E' Med: 19.30 E/E' Lat: 11.30 PHT: 71.00 MVA PHT: 3.10 Decel Thomas: 3.20 Aortic Valve AoV Pk Anthony: 4.35 AoV Mn Anthony: 3.16 AoV VTI: 1.07 AoV Pk Grad: 76.00 Aov Mn Grad: 45.00 LULA Cont.VTI: 0.87 LVOT LVOT Pk Anthony: 1.18 LVOT Mn Anthony: 0.80 LVOT VTI: 0.30 LVOT Pk Grad: 6.00 LVOT Mn Grad: 3.00 LVOT Diam: 2.00 LVOT Area: 3.14 Diastolic Function MV Pk E: 0.78 MV Pk A: 1.08 E/A: 0.70 E'Medial: 4.03 E/E' Med: 19.30 E' Laterial: 6.85 E/E' Lat: 11.30 Right Ventricle TAPSE (mm): 28.00 TVS' Anthony: 10.00 Tricuspid Valve TR Pk Anthony: 2.51 TR Pk Grad: 25.00 RA Press: 3.00 RVSP: 28.00 Great Vessels Aorta Ao Root-2D: 3.70 2.0-3.7 cm Ao Asc: 4.00 2.1-3.4 cm Pulmonary Valve PV Pk Anthony: 1.59 Peak PV Grad: 10.00 Cardiac cath: Cardiac catheterization performed on June 27, 2023. We had trouble engaging the right coronary artery due to the downward uptake. Despite trying multiple catheters we could not engage the right coronary artery and she developed severe spasm so we decided to get further information with CTA. She did not have any significant disease in the LAD or circumflex artery. LVEDP was mildly elevated at 15 mm Hg. Systemic pressures were elevated. Mean gradient across aortic valve was 41 mm Hg. EKG: Date of Service: 06/09/23 Procedure(s): ECG 12 lead EKG Accession Number(s): [id number] cc: Rachelle Moreira MD~ Test Reason : CHEST PAIN Blood Pressure : / mmHG Vent. Rate : 087 BPM Atrial Rate : 087 BPM P-R Int : 214 ms QRS Dur : 078 ms QT Int : 368 ms P-R-T Axes : 059 -03 029 degrees QTc Int : 442 ms Sinus rhythm with 1st degree A-V block Otherwise normal ECG When compared with ECG of 03-JUN-2023 18:49, No significant change was found Referred By: Generic ED Physician Electronically Signed By:PEPE BOSS DOFACP Dictated By: Pepe Boss DO Signed By: <Electronically signed by Pepe Boss DO in OV> 06/09/23 1851 Assessment & Plan Assessment & Plan (1) Severe aortic stenosis: Code(s): I35.0 - Nonrheumatic aortic (valve) stenosis (2) HTN (hypertension): Code(s): I10 - Essential (primary) hypertension Qualifiers: Hypertension type: primary hypertension Qualified Code(s): I10 - Essential (primary) hypertension Plan 82-year-old female who is in for follow-up. She has history of aortic stenosis which by echocardiography as well as cardiac catheterization is severe. She has been experiencing fatigue and chest discomfort. No syncope. No symptoms of heart failure. I have advised her to increase her hydration as BP is borderline and she is saying she does not drink much water. We had a discussion of the natural history of aortic stenosis and the management options which include continued medical therapy, transcatheter aortic valve replacement, surgical aortic valve replacement.? We reviewed the risk and benefit of these approaches and decided to proceed with an evaluation for TAVR. Periprocedural risk with estimated likelihood include stroke at 2%, permanent pacemaker requirements at 8 to 10%, major bleeding at 2 to 3%, vascular complication at 1 to 2% and at 1 to 2%.? Patient accepts this risk and would like to proceed. The evaluation process will include an evaluation by cardiothoracic surgery and a TAVR CTA which she is getting tomorrow. She will see Dr patel from IC at [facility]. Thank you for allowing me to participate in the care of your patient. Please feel free to contact me if you have any questions. Coding Level of Care Code Est Pt Level 5 (33376) Diagnoses Severe aortic stenosis I35.0 Primary hypertension I10 Hypertension type: primary hypertension
[2023-07-12 12:50] VITALS: BP 98/70; PULSE 91; BMI 28.7
== END 2023-07-12 13:30 | disposition home or self-care (01) ==
PROVIDERS: PCP Physician Assistant; Visit Provider Internal Medicine Cardiovascular Disease
DX: I35.0 Nonrheumatic aortic (valve) stenosis (principal); I10 Essential (primary) hypertension
CPT/HCPCS: 99215

== ENCOUNTER → 2023-07-12 12:41 | Outpatient (BNVA) | payer MEDICARE, OTHER, SELFPAY | PROVIDERS: PCP Physician Assistant; Visit Provider Internal Medicine Cardiovascular Disease | DX: I35.0 Nonrheumatic aortic (valve) stenosis (principal); I10 Essential (primary) hypertension | CPT/HCPCS: 99212 ==

== ENCOUNTER 2023-07-17 11:06 | Outpatient (REF) | payer MEDICARE, OTHER, SELFPAY ==
--- NOTE | ~2023-07-17 | MM_ITS ---
EXAMINATION: MM DIAGNOSTIC DIGITAL BREAST TOMOSYNTHESIS, BILATERAL US BREAST LIMITED, LEFT MAMMOGRAPHY: CLINICAL INFORMATION: Left breast pain upper outer aspect. COMPARISON: Mammography: 02/02/2022, 01/13/2021. ([facility]) TECHNIQUE: Digital breast tomosynthesis is performed in both the craniocaudal and mediolateral oblique views along with computer-aided detection (CAD). Synthesized 2D images are generated from the tomosynthesis. FINDINGS: There are scattered areas of fibroglandular density (ACR BI-RADS breast composition Category b). There are bilateral vascular calcifications. There are no suspicious masses, suspicious grouped calcifications, or areas of architectural distortion in either breast. The parenchymal pattern is stable from prior exams. There are no mammographic abnormalities in the region of concern in the left breast upper outer quadrant. ULTRASOUND: CLINICAL INFORMATION: Left breast pain upper outer aspect. COMPARISON: None. TECHNIQUE: Targeted sonographic evaluation was performed using a high frequency linear transducer. Attention was given to the left breast spanning 1-4 o'clock, and 7-11 o'clock in the region of pain as pointed out by the patient. Selected archived documentation. FINDINGS: LEFT BREAST: There is a mixture of fatty and fibroglandular tissue. No suspicious mass is seen. There is no pathologic acoustic shadowing. There is no abnormal cystic finding. No ultrasonographic correlate to the region of left breast pain is present. MM/MM tomosynthesis diagnostic BI IMPRESSION: No findings suspicious for malignancy in either breast. No sonographic or mammographic correlate to the complaint of left breast pain upper outer quadrant. Recommend clinical management. Otherwise, recommend return to routine annual screening. OVERALL ASSESSMENT: Mammography: BI-RADS 1 - Negative Ultrasound: BI-RADS 1 - Negative RECOMMENDATION: 1. Patient should be managed based on the clinical impression. 2. Otherwise, routine annual screening mammography. This patient's information was entered into a reminder system with a target due date for their next mammogram.
== END 2023-07-17 11:07 | disposition home or self-care (01) ==
LOC: HO.MAMMO 11:06
PROVIDERS: PCP Physician Assistant; Visit Provider Physician Assistant
DX: N64.4 Mastodynia (principal)
CPT/HCPCS: 76642; 77062; 77066

== ENCOUNTER → 2023-07-17 11:30 | Outpatient (BNV) | payer MEDICARE, OTHER, SELFPAY | PROVIDERS: PCP Physician Assistant; Visit Provider Radiology Diagnostic Radiology | DX: N64.4 Mastodynia (principal) | CPT/HCPCS: 76642; 77062; 77066; G0279 ==

== ENCOUNTER 2023-07-18 11:10 | Outpatient (AMB) | payer MEDICARE, OTHER, SELFPAY ==
[2023-07-18 11:13] VITALS: BP 102/62; PULSE 89; O2SAT 98; BMI 28.8
--- NOTE | 2023-07-18 11:13 | A.OFFPC_ITS ---
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 Accompanied by: Self / Same As Patient Allergies buspirone Allergy (Intermediate, Verified 07/18/23 11:35) Rash Sulfa (Sulfonamide Antibiotics) Allergy (Intermediate, Verified 07/18/23 11:35) RASH amoxicillin [From AUGMENTIN] Allergy (Unknown, Verified 07/18/23 11:35) PER H&P clavulanic acid [From AUGMENTIN] Allergy (Unknown, Verified 07/18/23 11:35) PER H&P garlic [GARLIC] Allergy (Unknown, Verified 07/18/23 11:35) PER H&P metronidazole [From FLAGYL] Allergy (Unknown, Verified 07/18/23 11:35) OCULAR MIGRAINES penicillamine Allergy (Unknown, Verified 07/18/23 11:35) Unknown ciprofloxacin Adverse Reaction (Intermediate, Verified 07/18/23 11:35) neuropathic pain lisinopril Adverse Reaction (Intermediate, Verified 07/18/23 11:35) Cough nitrofurantoin Adverse Reaction (Mild, Verified 07/18/23 11:35) GI side effects environmental Allergy (Unknown, Uncoded 07/12/23 12:51) Unknown flagyl Allergy (Unknown, Uncoded 07/12/23 12:51) Unknown From KEFLEX Allergy (Unknown, Uncoded 07/12/23 12:51) RASH Metoprolol Tartrate Allergy (Unknown, Uncoded 07/12/23 12:51) Unknown Sulfacet-R Allergy (Unknown, Uncoded 07/12/23 12:51) Unknown Medication List - Last Reconciled 07/18/23 by Nick Gomez PA-C acetaminophen 1,000 mg PO Q6H PRN alprazolam 0.25 mg PO BID PRN citalopram 10 mg PO BEDTIME cyanocobalamin (vitamin B-12) (Vitamin B-12) 1,000 mcg PO DAILY fluticasone propionate 50 mcg/actuation 2 sprays intranasal DAILY losartan 25 mg PO DAILY ondansetron HCl 4 mg PO Q8H PRN Tobacco use date assessed: 05/15/23 Fall risk assessment: 1 Fall in past year Last assessed Fall Risk: 07/18/23 Dental Screening Dental Screen Date: 07/18/23 Did you have a dental visit in the last 12 months?: No Did you have a dental problem in the last 6 months where you did not have access to dental care?: No Was dental information given to patient?: No (DENTURES) HPI f/u HTN HPI Details Patient is an 82-year-old female here today for follow-up visit. Patient has a past medical history significant for severe generalized anxiety disorder, chronic constipation, aortic stenosis, hypertension. Recently seen at the [facility] and found to have a UTI was placed on antibiotics. Has been feeling somewhat better. .. Aortic stenosis: Continues to follow cardiology, x-ray now seeing a new copper flotation operator in the group and feels much more comfortable.. Is undergoing aortic valve replacement testing. Recent coronary catheterization without any significant coronary artery disease. She will be meeting with thoracic surgeons at [facility] soon. She continues to have anemia which may related to her aortic valve severe stenosis. . CHRONIC MEDICAL CONDITIONS--> . Cerebral ventriculomegaly: MRA head showing ventriculomegaly, has followed up with neurologist though was told not to worry about this finding. Otherwise does not show signs and symptoms of normal pressure hydrocephalus. .. Severe anxiety: Continues to follow mental therapist and a psychiatrist (Dr. guerrero). She continues on low-dose Celexa though believes that this is making her mood worse and would like to wean off of this medication and will speak with her psychiatrist. Does use alprazolam 0.25 mg on a p.r.n. basis that is helpful for anxiety. Advised speaking with her psychiatrist about more longer-acting benzodiazepine like clonazepam for better coverage throughout the day of her anxiety. Laboratory Tests 10/07/21 11/04/21 02/26/22 14:25 11:40 19:19 RBC 3.76 L Hgb 11.3 L Plt Count INR Creatinine Random Glucose Iron 80 Troponin I High Se ns C-Reactive Protein 0.04 B-Natriuretic Pept gail 108 H 25-OH Vitamin D To daniela TSH 0.78 Ur Leukocyte Lupe ase Urine RBC Urine WBC Influenza Type A ( PCR) NEGATIVE SARS-CoV-2 RNA (RT -PCR) NEGATIVE 04/02/22 04/11/22 05/22/22 17:25 12:10 15:26 RBC 4.14 L 4.13 L Hgb 12.4 Plt Count INR Creatinine Random Glucose Iron Troponin I High Se ns C-Reactive Protein B-Natriuretic Pept gail 25-OH Vitamin D To daniela 19.0 TSH Ur Leukocyte Lupe ase Urine RBC Urine WBC Influenza Type A ( PCR) SARS-CoV-2 RNA (RT -PCR) 05/22/22 05/22/22 05/22/22 15:26 15:26 18:19 RBC Hgb Plt Count INR Creatinine Random Glucose 124 H Iron Troponin I High Se ns 5.6 5.6 C-Reactive Protein B-Natriuretic Pept gail 25-OH Vitamin D To daniela TSH Ur Leukocyte Lupe ase Urine RBC Urine WBC Influenza Type A ( PCR) SARS-CoV-2 RNA (RT -PCR) 05/22/22 06/04/22 11/04/22 18:19 18:47 13:14 RBC 3.78 L 3.81 L Hgb 11.3 L 11.6 L Plt Count INR 1.0 Creatinine 0.82 Random Glucose 119 H Iron Troponin I High Se ns C-Reactive Protein B-Natriuretic Pept gail 25-OH Vitamin D To daniela TSH Ur Leukocyte Lupe ase Urine RBC Urine WBC Influenza Type A ( PCR) SARS-CoV-2 RNA (RT -PCR) 12/29/22 03/01/23 06/09/23 12:37 00:47 14:52 RBC 3.55 L 3.01 L Hgb 11.1 L 9.3 L Plt Count 122 L 134 L INR Creatinine 0.83 Random Glucose Iron Troponin I High Se ns C-Reactive Protein B-Natriuretic Pept gail 25-OH Vitamin D To daniela TSH Ur Leukocyte Lupe ase Urine RBC Urine WBC Influenza Type A ( PCR) SARS-CoV-2 RNA (RT -PCR) 07/07/23 07/07/23 13:28 15:30 RBC 3.30 L Hgb 10.0 L Plt Count 131 L INR Creatinine Random Glucose Iron Troponin I High Se ns C-Reactive Protein B-Natriuretic Pept gail 25-OH Vitamin D To daniela TSH Ur Leukocyte Lupe ase Small (1+) H Urine RBC 6-10 H Urine WBC 11-20 H Influenza Type A ( PCR) SARS-CoV-2 RNA (RT -PCR) [facility] Medical History Neuropathy Arthritis GERD (gastroesophageal reflux disease) HTN (hypertension) Diverticulitis Anxiety Irritable bowel Heart murmur Surgical History Hx of esophagogastroduodenoscopy Hx of colonoscopy History of tonsillectomy History of appendectomy Family History Father No problems noted. Mother No problems noted. Social History Household Members: Children Housing: House Are you a primary patient care representative to a significant other at home: No Do you presently have visiting nurse or other home services: No Alcohol intake: never Patient Tobacco Use Status: Former Tobacco user Quit Date: 2013 Tobacco use type: Cigarette e-Cigarette/Vaping Use: Never Used Second Hand Smoke Exposure: No Advance Directives Date on File: 03/28/23 service: No Current occupational status: retired Cognitive needs: No Hearing needs: No Vision needs: Yes (glasses) Questionnaire Thrive Questionnaire Date Thrive assessed: 01/23/23 PAIGE-7 AMB Questionnaire PAIGE-7 Date PAIGE - 7 assessed: 10/06/22 Source: Developed by Drs. Anatoliy Gavin, Peyton Hunt, Austyn Weber and colleagues, with an educational kentrell from [employer]. Review of Systems Const Reports fatigue and Denies headache(s) Eyes Denies loss of vision ENT Denies vertigo, Denies dizziness, Denies headache(s) and Denies sore throat Card Denies chest pain, Denies leg edema and Denies lightheadedness Resp Denies cough, Denies hemoptysis and Denies wheezing GI Denies abdominal pain, Denies melena, Denies constipation, Denies diarrhea and Denies vomiting Denies urinary frequency, Denies dysuria and Denies urinary urgency Musc Denies arthralgias, Denies joint swelling, Denies numbness and Denies tingling Neuro Denies Abnormal speech present, Denies behavioral changes, Denies vertigo, Denies dizziness, Denies headache(s), Denies loss of vision, Denies memory loss, Denies numbness and Denies tingling Psych Denies anxiety, Denies behavioral changes, Denies depression, Denies memory loss and Denies panic attacks Endo Reports fatigue Pradip/Lymph Denies easy bleeding and Denies easy bruising Aller/Immun Denies wheezing Physical exam (Primary Care) Vital Signs: Last Vital Signs Pulse 89 07/18/23 11:13 BP 102/62 07/18/23 11:13 Pulse Ox 98 07/18/23 11:13 Oxygen Delivery Method Room Air 07/18/23 11:13 BMI result Body Mass Index 28.8 Tobacco/Smoking Status: Tobacco use Status Tobacco use date assessed 05/15/23 07/18/23 11:26 Patient Tobacco Use Status Former Tobacco user 07/18/23 11:26 Tobacco use type Cigarette 07/18/23 11:26 e-Cigarette/Vaping Use Never Used 07/18/23 11:26 Thrive Assessment: Date of Thrive Assessment Date Thrive assessed 01/23/23 07/18/23 11:26 Const General: healthy appearing, no acute distress, alert and awake Nutritional Appearance: well nourished Orientation/consciousness: oriented to person, oriented to place and oriented to time HENMT Ears: TM's normal bilaterally General nose exam: Normal nasal mucous membranes and turbinates present Eyes Conjunctivae: conjunctivae normal Sclerae: sclerae normal Pupils: Equal, round and reactive pupils present Neck Neck: Yes no lymphadenopathy and Yes no JVD Thyroid: Thyroid normal Carotids: no bruits Resp Effort & Inspection: normal respiratory effort and not tachypneic Auscultation: no crackles, no rales, no rhonchi and no wheezes Cardio Rate: regular rate Rhythm: regular rhythm Heart sounds: no murmurs and normal S1 and S2 GI Palpation (GI): Soft to palpation, nontender, no hepatomegaly and no splenomegaly Auscultation: normal bowel sounds Skin General skin exam: no rashes or lesions noted and dry skin Neuro General: oriented to person, oriented to place and oriented to time Cranial nerves: Yes Equal, round and reactive pupils present Speech: No Abnormal speech present Gait exam (Neuro): Normal gait present Motor exam (neuro): no tremor noted Extrem Right upper extremity: full ROM Left upper extremity: full ROM Right lower extremity: full ROM; no edema Left lower extremity: full ROM; no edema Psych Mental Status: mental status grossly normal Speech and movement: Normal speech and movement present Affect: normal affect Attitude: cooperative Thought process: Normal thought process present Assessment and Plan Assessment & Plan (1) Severe aortic stenosis: Code(s): I35.0 - Nonrheumatic aortic (valve) stenosis Plan: As per HPI patient is undergoing evaluation for aortic valve replacement. Most recent coronary artery catheterization was essentially normal. She will be following up with a thoracic surgeon at [facility]. Physical exam still remains with a grade 3 systolic murmur. (2) Balance problem: Code(s): R26.89 - Other abnormalities of gait and mobility Plan: PATIENT IS SEVERAL MONTHS STATUS POST PELVIC FRACTURE. SHE STILL FEELS SOMEWHAT UNBALANCED ON HER FEET THOUGH NO RECENT FALLS. SHE IS INTERESTED IN PHYSICAL THERAPY TO HELP HER BALANCE AND STRENGTHEN HER LOWER EXTREMITIES. (3) Pancytopenia: Code(s): D61.818 - Other pancytopenia Plan: Patient continues to have chronic pancytopenia. Unclear etiology at this time though may be related to her severe aortic stenosis. Will consider hematology evaluation Orders: Orders PT Evaluation and Treatment 07/18/23 R26.89 - Other abnormalities of gait and mobility Coding Level of Care Code Est Pt Level 3 (94783) Diagnoses Severe aortic stenosis I35.0 Balance problem R26.89 Pancytopenia D61.818
== END 2023-07-18 12:01 | disposition home or self-care (01) ==
PROVIDERS: PCP Physician Assistant; Visit Provider Physician Assistant
DX: I35.0 Nonrheumatic aortic (valve) stenosis (principal); R26.89 Other abnormalities of gait and mobility; D61.818 Other pancytopenia
CPT/HCPCS: 99213

== ENCOUNTER 2023-07-21 11:05 | Outpatient (AMB) | payer MEDICARE, OTHER, SELFPAY ==
[2023-07-21 12:09] VITALS: BP 140/80; PULSE 89; TEMP 36.6; O2SAT 97; BMI 29.0
--- NOTE | 2023-07-21 12:09 | MHC.OFFWIV ---
Intake Vital Signs 07/21/23 12:09 Height 5 ft 5 in Weight 174 lb 8 oz BMI 29.0 BP 140/80 H Blood Pressure Location Rt brachial Position Sitting Pulse 89 Pulse Source Pulse Oximeter Temp 97.8 F Temp Source Temporal Artery Scan Pulse Oximetry (%) 97 Oxygen Delivery Method Room Air Intake Visit Reasons: EST/cough(lobby masked) Intake Note: pt is here for cough and itching feeling in body Patient Tobacco Use Status: Former Tobacco user Quit Date: 2013 Allergies buspirone Allergy (Intermediate, Verified 07/21/23 12:10) Rash Sulfa (Sulfonamide Antibiotics) Allergy (Intermediate, Verified 07/21/23 12:10) RASH amoxicillin [From AUGMENTIN] Allergy (Unknown, Verified 07/21/23 12:10) PER H&P clavulanic acid [From AUGMENTIN] Allergy (Unknown, Verified 07/21/23 12:10) PER H&P garlic [GARLIC] Allergy (Unknown, Verified 07/21/23 12:10) PER H&P metronidazole [From FLAGYL] Allergy (Unknown, Verified 07/21/23 12:10) OCULAR MIGRAINES penicillamine Allergy (Unknown, Verified 07/21/23 12:10) Unknown ciprofloxacin Adverse Reaction (Intermediate, Verified 07/21/23 12:10) neuropathic pain lisinopril Adverse Reaction (Intermediate, Verified 07/21/23 12:10) Cough nitrofurantoin Adverse Reaction (Mild, Verified 07/21/23 12:10) GI side effects cefuroxime Allergy (Intermediate, Uncoded 07/20/23 17:52) wheezy cough/itch environmental Allergy (Unknown, Uncoded 07/12/23 12:51) Unknown flagyl Allergy (Unknown, Uncoded 07/12/23 12:51) Unknown From KEFLEX Allergy (Unknown, Uncoded 07/12/23 12:51) RASH Metoprolol Tartrate Allergy (Unknown, Uncoded 07/12/23 12:51) Unknown Sulfacet-R Allergy (Unknown, Uncoded 07/12/23 12:51) Unknown Do you need a note to return to daycare/school/sports/work: Yes HPI HPI Comments History of Present Illness Details This is a 82-year-old female who presents to the office today for sick visit. Patient complaining of itching. Patient states she was recently put on an antibiotic for a urinary tract infection, which she completed a few days ago. Patient states she started to develop itching of her torso and chest. She denies any rashes. She reports she had some mild shortness of breath and wheezing yesterday but this has resolved. She denies any throat swelling or trouble swallowing. She denies any fevers or chills. PFSH Medical History Neuropathy Arthritis GERD (gastroesophageal reflux disease) HTN (hypertension) Diverticulitis Anxiety Irritable bowel Heart murmur Surgical History Hx of esophagogastroduodenoscopy Hx of colonoscopy History of tonsillectomy History of appendectomy Family History Father No problems noted. Mother No problems noted. Social History Household Members: Children Housing: House Are you a primary occasional caregiver to a significant other at home: No Do you presently have visiting nurse or other home services: No Alcohol intake: never Patient Tobacco Use Status: Former Tobacco user Quit Date: 2013 Tobacco use type: Cigarette e-Cigarette/Vaping Use: Never Used Second Hand Smoke Exposure: No Advance Directives Date on File: 03/28/23 service: No Current occupational status: retired Cognitive needs: No Hearing needs: No Vision needs: Yes (glasses) Review of Systems Const All systems reviewed & are unremarkable except as noted in HPI and below Reports no additional complaints Eyes Reports no additional complaints ENT Reports no additional complaints Card Reports no additional complaints Resp Reports no additional complaints GI Reports no additional complaints Reports no additional complaints Musc Reports no additional complaints Skin/Breast Reports system reviewed and no additional complaints, except as documented Neuro Reports no additional complaints Psych Reports no additional complaints Endo Reports no additional complaints Pradip/Lymph Reports no additional complaints Aller/Immun Reports no additional complaints Physical Exam Vital Signs: Last Vital Signs Temp 97.8 F 07/21/23 12:09 Pulse 89 07/21/23 12:09 BP 140/80 H 07/21/23 12:09 Pulse Ox 97 07/21/23 12:09 Oxygen Delivery Method Room Air 07/21/23 12:09 BMI result Body Mass Index 29.0 Const Other: Vital signs reviewed. Constitutional: Non-toxic appearing. No acute distress. Well-developed and well-nourished. HEENT: Normocephalic and atraumatic. Skin: Warm and dry. No rashes or lesions noted. Neck: Full and painless range of motion. No cervical lymphadenopathy. Cardio: Regular rate and rhythm. No murmurs, gallops, or rubs. No lower extremity edema. No JVD. Pulmonary: No respiratory distress. No accessory muscle usage. Clear to auscultation bilaterally without wheezing, crackles, or rhonchi. Gastrointestinal: Soft, nontender, and nondistended in all 4 quadrants. Normoactive bowel sounds in all 4 quadrants. Genitourinary: No CVA tenderness. Musculoskeletal: Normal range of motion in joints throughout the body. No deformity or other signs of injury. Neuro: Alert and oriented x4. Cranial nerves 2-12 grossly intact. No focal deficits appreciated. Psych: Normal mood and affect. Assessment & Plan Assessment & Plan (1) Itching: Code(s): L29.9 - Pruritus, unspecified Plan: This is an 82-year-old female who presents to the office complaining of itching of her chest and torso in the setting of recent antibiotic use. Patient is unsure which antibiotic she was taking but she does have multiple antibiotic allergies. Patient has no rashes on physical examination. She has no expiratory wheezing. No evidence of anaphylactic shock at this time. Unclear if this itching is related to antibiotic use. Patient with the advised to monitor for any signs of a rash that could indicate shingles or allergic reaction. Patient was given p.o. hydroxyzine 25 mg 3 times daily as needed for itching; she was advised that this medication can be sedating so she should not take it if she plans on driving or being out of the house. Patient was advised to follow-up with the emergency room if he were to develop shortness of breath, wheezing, or signs of anaphylactic shock. Patient verbalized understanding and is agreeable with the plan. Medications: New hydroxyzine HCl 25 mg PO TID PRN 10 tabs 0RF itching Coding Level of Care Code Est Pt Level 3 (04890) Diagnoses Itching L29.9
== END 2023-07-21 12:48 | disposition home or self-care (01) ==
PROVIDERS: PCP Physician Assistant; Visit Provider Physician Assistant Medical
DX: L29.9 Pruritus, unspecified (principal)
CPT/HCPCS: 99213

== ENCOUNTER 2023-08-03 13:27 | Emergency (ER) | payer MEDICARE, OTHER, SELFPAY ==
[2023-08-03 13:57] VITALS: BP 141/75; PULSE 98; RESP 18; TEMP 36.4; O2SAT 94; BMI 29.0
--- NOTE | 2023-08-03 14:05 | ED_ITS ---
HPI - Chest Pain General Chief Complaint: Chest Pain Stated Complaint: diff breathing itch inside Time Seen by Provider: 08/03/23 20:24 Source: patient, RN notes reviewed and old records reviewed Mode of arrival: ambulatory Limitations: no limitations History of Present Illness HPI narrative: 82-year-old female presents for evaluation of ?itching to the left side of my chest. ? Patient states that her last 2 weeks or so she has had itching to the left side of her left breast. She states that she has had a mammogram with no findings. She denies any rashes or skin changes She states that she is due to have a TAVR procedure due to aortic stenosis She denies any chest pain or shortness of breath today Related Data Home Medications Medication Instructions Recorded Confirmed acetaminophen 500 mg tablet 1,000 mg PO Q6H PRN Pain 03/28/23 07/18/23 alprazolam 0.25 mg tablet 0.25 mg PO BID PRN Anxiety 03/28/23 07/18/23 citalopram 10 mg tablet 10 mg PO BEDTIME 03/28/23 07/18/23 ondansetron HCl 4 mg tablet 4 mg PO Q8H PRN Nausea 03/28/23 07/18/23 Previous Rx's Medication Instructions Recorded fluticasone propionate 50 2 spray intranasal DAILY #16 grams 03/31/23 mcg/actuation nasal spray,suspension cyanocobalamin (vitamin B-12) 1,000 mcg PO DAILY #30 tabs 05/22/23 1,000 mcg tablet (Vitamin B-12) hydroxyzine HCl 25 mg tablet 25 mg PO TID PRN itching #10 tabs 07/21/23 losartan 25 mg tablet 25 mg PO DAILY #30 tabs 08/01/23 Allergies Allergy/AdvReac Type Severity Reaction Status Date / Time buspirone Allergy Intermediate Rash Verified 08/03/23 13:57 Sulfa (Sulfonamide Allergy Intermediate RASH Verified 08/03/23 13:57 Antibiotics) amoxicillin [From AUGMENTIN] Allergy Unknown PER H&P Verified 08/03/23 13:57 clavulanic acid Allergy Unknown PER H&P Verified 08/03/23 13:57 [From AUGMENTIN] garlic [GARLIC] Allergy Unknown PER H&P Verified 08/03/23 13:57 metronidazole [From FLAGYL] Allergy Unknown OCULAR Verified 08/03/23 13:57 MIGRAINES penicillamine Allergy Unknown Unknown Verified 08/03/23 13:57 ciprofloxacin AdvReac Intermediate neuropathic Verified 08/03/23 13:57 pain lisinopril AdvReac Intermediate Cough Verified 08/03/23 13:57 nitrofurantoin AdvReac Mild GI side Verified 08/03/23 13:57 effects cefuroxime Allergy Intermediate wheezy Uncoded 07/20/23 17:52 cough/itch environmental Allergy Unknown Unknown Uncoded 07/12/23 12:51 flagyl Allergy Unknown Unknown Uncoded 07/12/23 12:51 From KEFLEX Allergy Unknown RASH Uncoded 07/12/23 12:51 Metoprolol Tartrate Allergy Unknown Unknown Uncoded 07/12/23 12:51 Sulfacet-R Allergy Unknown Unknown Uncoded 07/12/23 12:51 Review of Systems 2 Constitutional: Constitutional: Denies fever(s) ENT: Denies nasal congestion Cardiovascular: Cardiovascular: Denies chest pain and Denies dyspnea Respiratory: Respiratory: Denies cough and Denies dyspnea Gastrointestinal: Gastrointestinal: Denies abdominal pain and Reports constipation PMFSH Past Medical History Medical History Neuropathy Arthritis GERD (gastroesophageal reflux disease) HTN (hypertension) Diverticulitis Anxiety Irritable bowel Heart murmur Surgical History Hx of esophagogastroduodenoscopy Hx of colonoscopy History of tonsillectomy History of appendectomy Family History Family History Father No problems noted. Mother No problems noted. Social History Social History Household Members: Children Housing: House Are you a primary rn acute care to a significant other at home: No Do you presently have visiting nurse or other home services: No Alcohol intake: never Patient Tobacco Use Status: Former Tobacco user Quit Date: 2013 Tobacco use type: Cigarette e-Cigarette/Vaping Use: Never Used Second Hand Smoke Exposure: No Advance Directives: Yes Advance Directives on File: Yes Advance Directives Date on File: 03/28/23 service: No Current occupational status: retired Cognitive needs: No Hearing needs: No Vision needs: Yes (glasses) Physical Exam 2 Vital Signs: Vital Signs: Last Vital Signs Temp 97.5 F 08/03/23 13:57 Pulse 98 08/03/23 13:57 Resp 18 08/03/23 13:57 BP 141/75 H 08/03/23 13:57 Pulse Ox 94 08/03/23 13:57 O2 Del Method Room Air 08/03/23 13:57 BMI result Body Mass Index 29.0 Const: General: healthy appearing, comfortable, no acute distress, alert and awake Nutritional Appearance: well nourished Orientation/consciousness: p atient oriented x3 HEENT: Head: Yes normocephalic and Yes atraumatic Eyes: Eyelids: Yes eyelids normal Conjunctivae: conjunctivae normal S clerae: sclerae normal Corneas: corneas normal Pupils: Equal, round and reactive pupils present EOM: EOMs intact bilaterally Neck: Neck: Yes full ROM Resp: Effort & Inspection: normal respiratory effort, able to speak in complete sentences and not labored Skin: Other: No rash to the chest, chest wall/breast. No abnormal swelling, erythema General skin exam: elasticity normal Neuro: General: patient oriented x3 Cranial nerves: Yes CN's II-XII intact bilaterally, Yes Equal, round and reactive pupils present and Yes Bilaterally intact EOM present Cognition (Neuro): normal cognition Course Course Course Narrative: This is a rapid medical exam: Additional HPI, ROS, PE not included below will be deferred to primary provider. Patient is an 82-year-old female presenting to the emergency department with complaint of itching to left anterior chest. Patient specifically asking if she has shingles. No rash or erythema noted in triage. Denies chest pain or shortness of breath. Denies new soaps, foods. States she is awaiting a TAVR procedure at [facility] and feels symptoms are related. States she called her PCP who advised her to come to the ED. Plan: EKG 17:30 Patient now complaining of chest pain, will add labs including troponin Medical Decision Making Medical Decision Making MDM Narrative: 82-year-old female with multiple comorbidities presents for evaluation of itching to left side of her chest. This is not acute moves been present for the last few weeks. The patient denies any rash, she has had a negative mammogram. No masses or rashes seen or palpable on exam. Patient's EKG is nonischemic, labs are without acute findings Differential Diagnosis Differential Diagnoses: The differential diagnosis associated with the presentation includes Pruritus Rash Dermatitis Eczema ACS less likely Lab Data MDM Lab Attestation statement: I reviewed the patient's lab results. Patient has mild thrombocytopenia which is consistent with her recent baseline from 3 weeks ago. No significant electrolyte abnormalities. 08/03/23 17:42 08/03/23 17:43 Labs: Lab Results 08/03/23 08/03/23 Range/Units 17:42 17:43 WBC 4.7 L (4.8-10.8) X10*3/uL RBC 3.44 L (4.20-5.50) X10*6/uL Hgb 10.1 L (12.0-16.0) g/dl Hct 32.1 L (37.0-47.0) % MCV 93.3 (80.0-98.0) fL MCH 29.4 (27.0-33.0) pg MCHC 31.5 (31.0-35.0) g/dl RDW 13.3 (11.0-16.0) % Plt Count 135 L (160-400) X10*3/uL MPV 11.0 (9.4-12.3) fL Immature Gran % (Auto) 0.2 (0.0-0.4) % Neut % (Auto) 78.2 H (45-73) % Lymph % (Auto) 14.2 L (20-40) % [place] % (Auto) 5.3 (2-11) % Eos % (Auto) 1.5 (0-4) % Baso % (Auto) 0.6 (0-2) % Lymph # (Auto) 0.7 L (1.2-4.9) X10*3/uL [place] # (Auto) 0.3 (0.1-1.2) X10*3/uL Eos # (Auto) 0.1 (0.0-0.4) X10*3/uL Baso # (Auto) 0.0 (0.0-0.2) X10*3/uL Abs Immat Gran (auto) 0.01 (0.00-0.03) X10*3/uL Absolute Neuts (auto) 3.7 (2.0-8.3) x10*3/uL Absolute Nucleated RBC 0.000 (0.0-0.012) X10*3/uL Nucleated RBC % (auto) 0.0 (0.0-0.2) /100WBC Sodium 138 (135-145) mmol/L Potassium 4.6 (3.3-5.1) mmol/L Chloride 101 (96-108) mmol/L Carbon Dioxide 29 (22-29) mmol/L Anion Gap 13 (12-20) BUN 22 H (9-16) mg/dL Creatinine 0.77 (0.5-1.4) mg/dL Estim Creat Clear Calc 60.6 Estimated GFR > 60 Random Glucose 85 (60-115) mg/dL Calcium 10.2 (8.4-10.2) mg/dL Troponin I High Sens 4.4 (<3.5-17.0) ng/L Independent Interpretation I performed an independent interpretation of an: EKG (Sinus rhythm with first- degree AV block. [place] interval 216. No ischemic changes) Discharge Plan Discharge Clinical Impression: Itching Patient Disposition: Home, Self-Care Instructions: Itchy Skin (ED) Additional Instructions: I do not see any rash in the area of concern to explain your itching There is no sign of infection Your blood work was consistent with her baseline with no concerning changes or abnormalities Your EKG also did not have any concerning changes. Follow-up with your primary doctor Return for new or worsening symptoms Prescriptions: No Action cyanocobalamin (vitamin B-12) [Vitamin B-12] 1,000 mcg tablet 1,000 mcg PO DAILY Qty: 30 3RF losartan 25 mg tablet 25 mg PO DAILY Qty: 30 3RF citalopram 10 mg tablet 10 mg PO BEDTIME ondansetron HCl 4 mg tablet 4 mg PO Q8H PRN (Reason: Nausea) alprazolam 0.25 mg tablet 0.25 mg PO BID PRN (Reason: Anxiety) acetaminophen 500 mg Tablet 1,000 mg PO Q6H PRN (Reason: Pain) fluticasone propionate 50 mcg/actuation spray,suspension 2 spray intranasal DAILY Qty: 16 0RF hydroxyzine HCl 25 mg tablet 25 mg PO TID PRN (Reason: itching) Qty: 10 0RF Interventions: ED Discharge Assessment Last Done: 08/03/23 20:57
--- NOTE | 2023-08-03 14:11 | ECG_ITS ---
Test Reason : CHEST ITCHINESS Blood Pressure : / mmHG Vent. Rate : 088 BPM Atrial Rate : 088 BPM P-R Int : 216 ms QRS Dur : 084 ms QT Int : 368 ms P-R-T Axes : 050 005 029 degrees QTc Int : 445 ms Sinus rhythm with 1st degree A-V block Otherwise normal ECG When compared with ECG of 09-JUN-2023 14:41, No significant change was found Referred By: Apple Stoner Electronically Signed By:MICHEL CHARLES MD
[2023-08-03 17:48] LABS: MANUAL DIFF FLAG NO
[2023-08-03 17:50] LABS: Basophils Percent Auto 0.6 % (0-2); Eosinophils Absolute Auto 0.1 X10*3/uL (0.0-0.4); Eosinophils Percent Auto 1.5 % (0-4); Hematocrit 32.1 % (37.0-47.0); Hemoglobin 10.1 g/dl (12.0-16.0); Imm Gran Abs Auto 0.01 X10*3/uL (0.00-0.03); Imm Gran Pct Auto 0.2 % (0.0-0.4); Lymphocytes Absolute Auto 0.7 X10*3/uL (1.2-4.9); Lymphocytes Percent Auto 14.2 % (20-40); Mean Corpuscular HGB Conc 31.5 g/dl (31.0-35.0); Mean Corpuscular Hemoglobin 29.4 pg (27.0-33.0); Mean Corpuscular Volume 93.3 fL (80.0-98.0); Monocytes Absolute Auto 0.3 X10*3/uL (0.1-1.2); Monocytes Percent Auto 5.3 % (2-11); Neutrophils Absolute Auto 3.7 x10*3/uL (2.0-8.3); Neutrophils Percent Auto 78.2 % (45-73); Platelet Count 135 X10*3/uL (160-400); Red Blood Count 3.44 X10*6/uL (4.20-5.50); Red Cell Distribution Width 13.3 % (11.0-16.0); White Blood Count 4.7 X10*3/uL (4.8-10.8)
[2023-08-03 18:12] LABS: Anion Gap 13 (12-20); Blood Urea Nitrogen 22 mg/dL (9-16); Calcium 10.2 mg/dL (8.4-10.2); Carbon Dioxide 29 mmol/L (22-29); Chloride 101 mmol/L (96-108); Creatinine Clr Calc Pharmacy 60.6; Estimated Glomerular Filt Rate > 60; Glucose Random 85 mg/dL (60-115); Potassium 4.6 mmol/L (3.3-5.1); Sodium 138 mmol/L (135-145)
[2023-08-03 18:20] LABS: Troponin-I High Sensitivity 4.4 ng/L (<3.5-17.0)
== END 2023-08-03 20:57 | disposition home or self-care (01) ==
PROVIDERS: Registered Nurse Emergency; Emergency Provider Emergency Medicine; PCP Physician Assistant
DX: R07.89 Other chest pain (principal); R06.02 Shortness of breath; L29.9 Pruritus, unspecified; Z79.899 Other long term (current) drug therapy; Z87.891 Personal history of nicotine dependence
CPT/HCPCS: 36415; 80048; 84484; 85025; 93005; 99283

== ENCOUNTER → 2023-08-03 14:11 | Outpatient (BNV) | payer MEDICARE, OTHER, SELFPAY | PROVIDERS: Emergency Provider Emergency Medicine; PCP Physician Assistant; Visit Provider Internal Medicine Cardiovascular Disease | DX: I44.0 Atrioventricular block, first degree (principal) | CPT/HCPCS: 93010 ==

== ENCOUNTER 2023-08-09 08:33 | Emergency (ER) | payer MEDICARE, OTHER, SELFPAY ==
--- NOTE | ~2023-08-09 | XR_ITS ---
EXAMINATION: XR CHEST CLINICAL INFORMATION: Chest pain COMPARISON: Chest x-ray 06/09/2023 TECHNIQUE: 2 views of the chest were obtained. FINDINGS: Lungs are hyperinflated but clear of acute process. The heart size and pulmonary vascularity is normal. There is mild dextroscoliosis. Otherwise no gross bony abnormality seen. XR/XR chest 2V IMPRESSION: Unremarkable chest examination.
[2023-08-09 09:25] VITALS: BP 143/89; PULSE 87; RESP 16; TEMP 36.8; BMI 28.6
--- NOTE | 2023-08-09 09:33 | ECG_ITS ---
Test Reason : weakness/chest pain Blood Pressure : / mmHG Vent. Rate : 085 BPM Atrial Rate : 085 BPM P-R Int : 212 ms QRS Dur : 106 ms QT Int : 370 ms P-R-T Axes : 052 -09 040 degrees QTc Int : 440 ms Sinus rhythm with 1st degree A-V block Otherwise normal ECG When compared with ECG of 03-AUG-2023 14:52, No significant change was found Referred By: Xuan Soliman Electronically Signed By:WILBUR MCFARLAND
[2023-08-09 10:06] LABS: MANUAL DIFF FLAG NO
[2023-08-09 10:09] LABS: Appearance Urine Clear; Color Urine Yellow; Glucose Urine UA Negative (Negative); Leukocyte Esterase Urine Negative (Negative); Nitrite Urine Negative (Negative); Specific Gravity - Urine 1.015 (1.005-1.025); Urine Blood Negative (Negative); Urine Ketones Negative (Negative); Urine Protein Negative (Neg-Trace)
[2023-08-09 10:18] LABS: Prothrombin Time 11.8 SEC (11.1-13.3)
[2023-08-09 10:20] LABS: Partial Thromboplastin Time 38.3 SEC (26.0-36.4)
[2023-08-09 10:24] LABS: Alanine Aminotransferase 10 U/L (0-31); Albumin Level 4.1 g/dL (3.5-5.0); Alkaline Phosphatase 106 U/L (39-117); Anion Gap 11 (12-20); Aspartate Amino Transferase 20 U/L (5-31); Bilirubin Total 0.5 mg/dL (0.0-1.0); Blood Urea Nitrogen 18 mg/dL (9-16); Calcium 9.5 mg/dL (8.4-10.2); Carbon Dioxide 28 mmol/L (22-29); Chloride 103 mmol/L (96-108); Creatinine Clr Calc Pharmacy 61.8; Estimated Glomerular Filt Rate > 60; Glucose Random 91 mg/dL (60-115); Potassium 4.3 mmol/L (3.3-5.1); Sodium 138 mmol/L (135-145)
[2023-08-09 10:30] LABS: B Type Natriuretic Peptide 210 pg/mL (<100)
[2023-08-09 10:32] LABS: Troponin-I High Sensitivity 4.5 ng/L (<3.5-17.0)
[2023-08-09 10:33] LABS: Basophils Percent Auto 0.6 % (0-2); Eosinophils Absolute Auto 0.1 X10*3/uL (0.0-0.4); Eosinophils Percent Auto 1.5 % (0-4); Hematocrit 30.8 % (37.0-47.0); Lymphocytes Absolute Auto 0.3 X10*3/uL (1.2-4.9); Lymphocytes Percent Auto 9.1 % (20-40); Mean Corpuscular HGB Conc 32.5 g/dl (31.0-35.0); Mean Corpuscular Hemoglobin 30.4 pg (27.0-33.0); Mean Corpuscular Volume 93.6 fL (80.0-98.0); Mean Platelet Volume 11.4 fL (9.4-12.3); Monocytes Absolute Auto 0.3 X10*3/uL (0.1-1.2); Monocytes Percent Auto 9.7 % (2-11); Neutrophils Absolute Auto 2.6 x10*3/uL (2.0-8.3); Neutrophils Percent Auto 79.1 % (45-73); Platelet Count 115 X10*3/uL (160-400); Red Blood Count 3.29 X10*6/uL (4.20-5.50); Red Cell Distribution Width 13.3 % (11.0-16.0); White Blood Count 3.3 X10*3/uL (4.8-10.8)
[2023-08-09 10:46] LABS: Influenza A PCR NEGATIVE (Negative); Influenza B PCR NEGATIVE (Negative); Resp Syncy Virus RNA Qual PCR NEGATIVE (Negative); SARS COV2 PCR INHOUSE POSITIVE (Negative)
--- NOTE | 2023-08-09 13:36 | ED.GENADULT ---
HPI - General Adult General Chief complaint: General Medical Stated complaint: Upper Chest & Head Pain Time Seen by Provider: 08/09/23 13:36 Source: patient Mode of arrival: ambulatory Limitations: no limitations History of Present Illness HPI narrative: Patient is an 82 year old assigned female at with a history of anxiety, HTN, and aortic stenosis presenting to the emergency department today with all over body pain. Patient states that over the last 2 days she has had all over body pain. Patient denies any dizziness, lightheadedness, abdominal pain, nausea, vomiting, fever, chills, blurry vision, double vision, loss of vision, chest pain, difficulty breathing, shortness of breath, back pain, night sweats, pain with urination, increased urinary frequency, increased urinary urgency, blood in her urine or stool, syncope or a near syncopal episode, recent trauma or falls, bowel incontinence, bladder incontinence, bowel retention, bladder retention, or any other complaints at this time. Onset (ago): day(s) (2) Severity: mild Severity scale (1-10): 3 Quality: aching and dull Pain Consistency: constant Relieving factors: none Exacerbating factors: none Associated symptoms: denies other symptoms Treatments prior to arrival: none Related Data Home Medications Medication Instructions Recorded Confirmed acetaminophen 500 mg tablet 1,000 mg PO Q6H PRN Pain 03/28/23 07/18/23 alprazolam 0.25 mg tablet 0.25 mg PO BID PRN Anxiety 03/28/23 07/18/23 citalopram 10 mg tablet 10 mg PO BEDTIME 03/28/23 07/18/23 ondansetron HCl 4 mg tablet 4 mg PO Q8H PRN Nausea 03/28/23 07/18/23 Previous Rx's Medication Instructions Recorded fluticasone propionate 50 2 spray intranasal DAILY #16 grams 03/31/23 mcg/actuation nasal spray,suspension cyanocobalamin (vitamin B-12) 1,000 mcg PO DAILY #30 tabs 05/22/23 1,000 mcg tablet (Vitamin B-12) hydroxyzine HCl 25 mg tablet 25 mg PO TID PRN itching #10 tabs 07/21/23 losartan 25 mg tablet 25 mg PO DAILY #30 tabs 08/01/23 Allergies Allergy/AdvReac Type Severity Reaction Status Date / Time buspirone Allergy Intermediate Rash Verified 08/09/23 09:11 Sulfa (Sulfonamide Allergy Intermediate RASH Verified 08/09/23 09:11 Antibiotics) amoxicillin [From AUGMENTIN] Allergy Unknown PER H&P Verified 08/09/23 09:11 clavulanic acid Allergy Unknown PER H&P Verified 08/09/23 09:11 [From AUGMENTIN] garlic [GARLIC] Allergy Unknown PER H&P Verified 08/09/23 09:11 metronidazole [From FLAGYL] Allergy Unknown OCULAR Verified 08/09/23 09:11 MIGRAINES penicillamine Allergy Unknown Unknown Verified 08/09/23 09:11 ciprofloxacin AdvReac Intermediate neuropathic Verified 08/09/23 09:11 pain lisinopril AdvReac Intermediate Cough Verified 08/09/23 09:11 nitrofurantoin AdvReac Mild GI side Verified 08/09/23 09:11 effects cefuroxime Allergy Intermediate wheezy Uncoded 08/09/23 09:11 cough/itch environmental Allergy Unknown Unknown Uncoded 08/09/23 09:11 flagyl Allergy Unknown Unknown Uncoded 08/09/23 09:11 From KEFLEX Allergy Unknown RASH Uncoded 08/09/23 09:11 Metoprolol Tartrate Allergy Unknown Unknown Uncoded 08/09/23 09:11 Sulfacet-R Allergy Unknown Unknown Uncoded 08/09/23 09:11 Review of Systems Constitutional: Constitutional: Reports no additional constitutional complaints, Reports body ache(s), Denies chills, Denies fever(s) and Denies night sweats Eyes: Eyes: Reports no additional eye complaints, Denies blurry vision, Denies change in vision, Denies diplopia, Denies eye discharge, Denies loss of vision and Denies eye pain ENT: Denies dizziness Cardiovascular: Cardiovascular: Reports no additional cardiovascular complaints, Denies chest pain, Denies lightheadedness, Denies Loss of Consciousness and Denies dyspnea Respiratory: Respiratory: Reports no additional respiratory complaints and Denies dyspnea Gastrointestinal: Gastrointestinal: Reports no additional gastrointestinal complaints, Denies abdominal pain, Denies melena, Denies hematochezia, Denies change in bowel habits and Denies change in stool character Genitourinary: Genitourinary: Denies hematuria, Denies urinary frequency, Denies dysuria, Denies urinary incontinence, Denies urinary hesitancy and Denies urinary urgency Musculoskeletal: Musculoskeletal: Reports no additional musculoskeletal complaints, Denies numbness and Denies tingling Neurologic: Denies dizziness, Denies loss of vision, Denies numbness and Denies tingling Psychiatric: Psychiatric: Reports no additional psychiatric complaints Endocrine: Endocrine: Reports no additional endocrine complaints Hematologic/Lymphatic: Hematologic/Lymphatic: Reports no additional hematologic/lymphatic complaints Allergic/Immunologic: Allergic/Immunologic: Reports no additional allergic/immunologic complaints [facility] Past Medical History Attestation statement: The following information was validated with the patient. Source: old records reviewed and nursing notes reviewed Medical History Breast cancer screening Breast pain, left Elevated vitamin B12 level Neck muscle spasm Strain of neck muscle Low back pain Pubic ramus fracture Sore throat Skin tear of upper arm without complication Head injury, acute, without loss of consciousness Fall Dizziness LLQ abdominal pain Medication noncompliance due to cognitive impairment RLQ abdominal pain Sinusitis Flu syndrome Precordial chest pain Atypical chest pain Cold intolerance Former smoker Pulmonary nodule Abnormal lung sounds Fever Constipation Bilateral calf pain Nausea Left lower quadrant abdominal pain Dysuria Fatigue Heart palpitations Lower extremity weakness HTN (hypertension) Aortic stenosis Obstipation Dark stools Lower abdominal pain Gastroenteritis Neck pain on right side URI (upper respiratory infection) Back pain Cough Chest pain Rhinitis Elevated BP without diagnosis of hypertension Non-rheumatic aortic stenosis Diverticulitis Anxiety GERD (gastroesophageal reflux disease) Cat scratch Cat bite Epigastric discomfort Diarrhea Nausea Viral syndrome GERD (gastroesophageal reflux disease) Neuropathy Arthritis GERD (gastroesophageal reflux disease) HTN (hypertension) Irritable bowel Heart murmur Surgical History Hx of esophagogastroduodenoscopy Hx of colonoscopy History of tonsillectomy History of appendectomy Family History Family History Father No problems noted. Mother No problems noted. Social History Social History Household Members: Children Housing: House Are you a primary home care and home health aides teacher to a significant other at home: No Do you presently have visiting nurse or other home services: No Alcohol intake: never Patient Tobacco Use Status: Former Tobacco user Quit Date: 2013 Tobacco use type: Cigarette e-Cigarette/Vaping Use: Never Used Second Hand Smoke Exposure: No Advance Directives: Yes Advance Directives on File: Yes Advance Directives Date on File: 03/28/23 service: No Current occupational status: retired Cognitive needs: No Hearing needs: No Vision needs: Yes (glasses) Physical Exam ED Vital Signs: Vital Signs - 24 hr 08/09/23 09:25 Temperature 98.2 F Pulse Rate 87 Respiratory Rate 16 Blood Pressure 143/89 H Oxygen Delivery Method Room Air BMI result Body Mass Index 28.6 Const General: cooperative, no acute distress, alert and awake Nutritional Appearance: well nourished Orientation/consciousness: patient oriented x3 Limitations: no limitations HENMT Head: Yes normal to inspection and Yes atraumatic Ears: hearing grossly normal bilaterally and external ears normal General nose exam: Normal external nose present, no nasal discharge noted and no epistaxis Face and sinus: Yes normal facial exam, No abrasion and No laceration Mouth: Normal oral and palatal mucosa present, no drooling and no muffled voice Eyes General: appearance normal, both eyes and all related structures Periorbital: periorbital findings normal Eyelids: Yes eyelids normal Conjunctivae: conjunctivae normal Pupils: Equal, round and reactive pupils present EOM: EOMs intact bilaterally Neck Neck: Yes normal visual inspection, Yes full ROM and Yes no lymphadenopathy Chest Chest palpation & inspection: normal inspection of the chest Resp Effort & Inspection: normal respiratory effort and able to speak in complete sentences Auscultation: clear to auscultation bilaterally GI Inspection: Yes normal to inspection Neuro General: patient oriented x3 and moves all extremities Cranial nerves: Yes Equal, round and reactive pupils present Cognition (Neuro): normal cognition Motor exam (neuro): 5/5 motor strength present throughout Sensory Exam: Normal double simultaneous stimulation for sensation Coordination: [id number] test normal Extrem General: Yes normal to inspection, Yes full ROM and Yes capillary refill normal Psych Appearance: grossly normal Mental Status: mental status grossly normal Affect: normal affect Attitude: cooperative Thought process: Normal thought process present Thought content: Normal thought content present Insight: Good insight present (Psych) Medications Administered Discontinued Medications Generic Name Dose Route Start Last Admin Trade Name Freq PRN Reason Stop Dose Admin Acetaminophen 650 mg 08/09/23 13:37 08/09/23 13:44 Acetaminophen 325 Mg Tablet PO 08/09/23 13:38 650 mg ONCE ONE Administration Medical Decision Making Medical Decision Making MDM Narrative: Patient is an 82 year old assigned female at with a history of aortic stenosis, anxiety, and HTN presenting to the emergency department today with body aches and feeling generally unwell. Patient's physical exam was unremarkable. Patient's blood work was unremarkable. Patient's urine showed no acute process. Patient's EKG was unremarkable. Patient's chest x-ray showed no acute process. Patient's COVID-19 test was positive. Patient's influenza and RSV tests were negative. I explained my physical exam findings as well as all test results to the patient. I answered all questions asked by the patient. I stressed the importance of the patient taking her medication as prescribed. I stressed the importance of the patient following up with her primary care provider. I stressed the importance of the patient returning to the emergency department immediately if her symptoms were to worsen or if she were to develop any dizziness, shortness of breath, difficulty breathing, chest pain, blurry vision, loss of vision, nausea, vomiting, abdominal pain, fever, chills, back pain, or any other complaints. Patient verbalized agreement and understanding with this treatment plan and discharge. Differential Diagnosis Differential Diagnoses: The differential diagnosis associated with the presentation includes COVID-19 NSTEMI STEMI Influenza RSV Admission/Observation Consideration of admission/observation: Escalation of care including admission/observation considered Patient would have been admitted to the hospital had her work up had any findings where hospital admission was appropriate and her clinical presentation warranted hospital admission. Lab Data [facility] Lab Attestation statement: I reviewed the patient's lab results. My interpretation of these results are in the [facility] Rationale portion of this note. 08/09/23 10:00 08/09/23 10:00 Labs: Lab Results 08/09/23 Range/Units 10:00 WBC 3.3 L (4.8-10.8) X10*3/uL RBC 3.29 L (4.20-5.50) X10*6/uL Hgb 10.0 L (12.0-16.0) g/dl Hct 30.8 L (37.0-47.0) % MCV 93.6 (80.0-98.0) fL MCH 30.4 (27.0-33.0) pg MCHC 32.5 (31.0-35.0) g/dl RDW 13.3 (11.0-16.0) % Plt Count 115 L (160-400) X10*3/uL MPV 11.4 (9.4-12.3) fL Immature Gran % (Auto) 0.0 (0.0-0.4) % Neut % (Auto) 79.1 H (45-73) % Lymph % (Auto) 9.1 L (20-40) % [place] % (Auto) 9.7 (2-11) % Eos % (Auto) 1.5 (0-4) % Baso % (Auto) 0.6 (0-2) % Lymph # (Auto) 0.3 L (1.2-4.9) X10*3/uL [place] # (Auto) 0.3 (0.1-1.2) X10*3/uL Eos # (Auto) 0.1 (0.0-0.4) X10*3/uL Baso # (Auto) 0.0 (0.0-0.2) X10*3/uL Abs Immat Gran (auto) 0.00 (0.00-0.03) X10*3/uL Absolute Neuts (auto) 2.6 (2.0-8.3) x10*3/uL Absolute Nucleated RBC 0.000 (0.0-0.012) X10*3/uL Nucleated RBC % (auto) 0.0 (0.0-0.2) /100WBC PT 11.8 (11.1-13.3) SEC INR 1.0 (0.9-1.1) APTT 38.3 H (26.0-36.4) SEC Sodium 138 (135-145) mmol/L Potassium 4.3 (3.3-5.1) mmol/L Chloride 103 (96-108) mmol/L Carbon Dioxide 28 (22-29) mmol/L Anion Gap 11 L (12-20) BUN 18 H (9-16) mg/dL Creatinine 0.75 (0.5-1.4) mg/dL Estim Creat Clear Calc 61.8 Estimated GFR > 60 Random Glucose 91 (60-115) mg/dL Calcium 9.5 D (8.4-10.2) mg/dL Magnesium 2.0 (1.6-2.6) mg/dL Total Bilirubin 0.5 (0.0-1.0) mg/dL AST 20 (5-31) U/L ALT 10 (0-31) U/L Alkaline Phosphatase 106 (39-117) U/L Troponin I High Sens 4.5 (<3.5-17.0) ng/L B-Natriuretic Peptide 210 H (<100) pg/mL Total Protein 7.0 (6.5-8.0) g/dL Albumin 4.1 (3.5-5.0) g/dL Urine Color Yellow Urine Appearance Clear Urine pH 6.0 (5.0-9.0) Ur Specific [place] 1.015 (1.005-1.025) Urine Protein Negative (Neg-Trace) mg/dL Urine Glucose (UA) Negative (Negative) mg/dL Urine Ketones Negative (Negative) mg/dL Urine Blood Negative (Negative) Urine Nitrite Negative (Negative) Ur Leukocyte Esterase Negative (Negative) Influenza Type A (PCR) NEGATIVE (Negative) Influenza Type B (PCR) NEGATIVE (Negative) RSV RNA Qual (PCR) NEGATIVE (Negative) SARS-CoV-2 RNA (RT-PCR) POSITIVE A (Negative) Independent Interpretation I performed an independent interpretation of an: EKG and Plain X-Ray Interpretation: My interpretation is in agreement with the radiologist's impression of this imaging study. EXAMINATION: XR CHEST CLINICAL INFORMATION: Chest pain COMPARISON: Chest x-ray 06/09/2023 TECHNIQUE: 2 views of the chest were obtained. FINDINGS: Lungs are hyperinflated but clear of acute process. The heart size and pulmonary vascularity is normal. There is mild dextroscoliosis. Otherwise no gross bony abnormality seen. XR/XR chest 2V IMPRESSION: Unremarkable chest examination. Dictated By: Jose Cantu MD Signed By: Electronically signed by Jose Cantu MD 08/09/23 1027 Vent. Rate: 085 BPM Atrial Rate: 085 BPM P-R Int: 212 ms QRS Dur: 106 ms QT Int: 370 ms P-R-T Axes: 052 -09 040 degrees QTc Int: 440 ms Sinus rhythm with 1st degree A-V block Otherwise normal ECG When compared with ECG of 03-AUG-2023 14:52, No significant change was found Electronically Signed By:TRE MCFARLAND Dictated By: Tre Mcfarland MD Signed By: Electronically signed by Tre Mcfarland MD 08/09/23 1402 Radiology Impression Discussion of test interpretation with radiology: I have reviewed the radiologist's reading. Discharge Plan Discharge Clinical Impression: COVID-19 Patient Disposition: Home, Self-Care Instructions: COVID-19 (Coronavirus Disease 2019) (ED) Additional Instructions: Follow up with your primary care provider. Return to the emergency department immediately if your symptoms worsen or if you develop any dizziness, shortness of breath, difficulty breathing, chest pain, blurry vision, loss of vision, nausea, vomiting, abdominal pain, fever, chills, back pain, or any other complaints. Prescriptions: No Action cyanocobalamin (vitamin B-12) [Vitamin B-12] 1,000 mcg tablet 1,000 mcg PO DAILY Qty: 30 3RF losartan 25 mg tablet 25 mg PO DAILY Qty: 30 3RF citalopram 10 mg tablet 10 mg PO BEDTIME ondansetron HCl 4 mg tablet 4 mg PO Q8H PRN (Reason: Nausea) alprazolam 0.25 mg tablet 0.25 mg PO BID PRN (Reason: Anxiety) acetaminophen 500 mg Tablet 1,000 mg PO Q6H PRN (Reason: Pain) fluticasone propionate 50 mcg/actuation spray,suspension 2 spray intranasal DAILY Qty: 16 0RF hydroxyzine HCl 25 mg tablet 25 mg PO TID PRN (Reason: itching) Qty: 10 0RF Referrals: Nick Gomez PA-C [Primary Care Provider] - Interventions: ED Discharge Assessment Last Done: 08/09/23 13:53 Discharge Date/Time: 08/09/23 13:55 Print Language: [place]
[2023-08-09] MEDS: Acetaminophen 325 MG TABLET 650 MG PO (13:44)
== END 2023-08-09 13:55 | disposition home or self-care (01) ==
PROVIDERS: Physician Assistant Medical; Emergency Provider Emergency Medicine Emergency Medical Services; PCP Physician Assistant
DX: U07.1 COVID-19 (principal); R07.9 Chest pain, unspecified; I10 Essential (primary) hypertension; Z87.891 Personal history of nicotine dependence; Z86.73 Personal history of transient ischemic attack (TIA), and cerebral infarction without residual deficits
CPT/HCPCS: 0241U; 71046; 80053; 81003; 83735; 83880; 84484; 85025; 85610; 85730; 93005; 99283; 99284

== ENCOUNTER → 2023-08-09 09:33 | Outpatient (BNV) | payer MEDICARE, OTHER, SELFPAY | PROVIDERS: Emergency Provider Emergency Medicine Emergency Medical Services; PCP Physician Assistant; Visit Provider Internal Medicine | DX: I44.0 Atrioventricular block, first degree (principal) | CPT/HCPCS: 93010 ==

== ENCOUNTER 2023-08-22 15:03 | Outpatient (AMB) | payer MEDICARE, OTHER, SELFPAY ==
[2023-08-22 14:54] VITALS: BP 118/60; PULSE 100; RESP 16; BMI 28.5
--- NOTE | 2023-08-22 14:54 | A.OFFPC_ITS ---
Vital Signs 08/22/23 14:54 Height 5 ft 6 in Weight 176 lb 6 oz BMI 28.5 BP 118/60 Blood Pressure Location Lt brachial Position Sitting Respiration 16 Pulse 100 Pulse Source Palpation Intake Visit Reasons: Bloody Nose/about a month Intake Note: Pt is here for bloody nose for a months. Pt is over COVID about two weeks ago. 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 Accompanied by: Self / Same As Patient Allergies buspirone Allergy (Intermediate, Verified 08/22/23 15:25) Rash Sulfa (Sulfonamide Antibiotics) Allergy (Intermediate, Verified 08/22/23 15:25) RASH amoxicillin [From AUGMENTIN] Allergy (Unknown, Verified 08/22/23 15:25) PER H&P clavulanic acid [From AUGMENTIN] Allergy (Unknown, Verified 08/22/23 15:25) PER H&P garlic [GARLIC] Allergy (Unknown, Verified 08/22/23 15:25) PER H&P metronidazole [From FLAGYL] Allergy (Unknown, Verified 08/22/23 15:25) OCULAR MIGRAINES penicillamine Allergy (Unknown, Verified 08/22/23 15:25) Unknown ciprofloxacin Adverse Reaction (Intermediate, Verified 08/22/23 15:25) neuropathic pain lisinopril Adverse Reaction (Intermediate, Verified 08/22/23 15:25) Cough nitrofurantoin Adverse Reaction (Mild, Verified 08/22/23 15:25) GI side effects cefuroxime Allergy (Intermediate, Uncoded 08/22/23 15:08) wheezy cough/itch environmental Allergy (Unknown, Uncoded 08/22/23 15:08) Unknown flagyl Allergy (Unknown, Uncoded 08/22/23 15:08) Unknown From KEFLEX Allergy (Unknown, Uncoded 08/22/23 15:08) RASH Metoprolol Tartrate Allergy (Unknown, Uncoded 08/22/23 15:08) Unknown Sulfacet-R Allergy (Unknown, Uncoded 08/22/23 15:08) Unknown Medication List - Last Reconciled 08/22/23 by Nick Gomez PA-C acetaminophen 1,000 mg PO Q6H PRN alprazolam 0.25 mg PO BID PRN citalopram 10 mg PO BEDTIME cyanocobalamin (vitamin B-12) (Vitamin B-12) 1,000 mcg PO DAILY fluticasone propionate 50 mcg/actuation 2 sprays intranasal DAILY hydroxyzine HCl 25 mg PO TID PRN losartan 25 mg PO DAILY ondansetron HCl 4 mg PO Q8H PRN Tobacco use date assessed: 05/15/23 HPI Bloody Nose/about a month HPI Details Patient is an 82-year-old female here today for problem visit. She reports having intermittent nosebleeds over 4 weeks. She did have COVID-19 bout 2 weeks ago and has recovered from. She reports mornings and blowing her nose she does small amount of blood in the tissue paper. She also does report over the last month having a mild productive cough speckled with small brown spots notable in her sputum. She otherwise denies any rapid weight loss, shortness of breath or fevers. Of note she did have a CT of her chest in 2021 that did show a small 5 mm lung nodule. Of note patient is a former smoker. Due to the hemoptysis--> Will send for CT chest to evaluate nodule/ evaluate for malignancy [facility] Medical History (Updated 08/22/23 @ 15:34 by Nick Gomez PA-C) Breast cancer screening Breast pain, left Elevated vitamin B12 level Neck muscle spasm Strain of neck muscle Low back pain Pubic ramus fracture Sore throat Skin tear of upper arm without complication Head injury, acute, without loss of consciousness Fall Dizziness LLQ abdominal pain Medication noncompliance due to cognitive impairment RLQ abdominal pain Sinusitis Flu syndrome Precordial chest pain Atypical chest pain Cold intolerance Former smoker Pulmonary nodule Abnormal lung sounds Fever Constipation Bilateral calf pain Nausea Left lower quadrant abdominal pain Dysuria Fatigue Heart palpitations Lower extremity weakness HTN (hypertension) Aortic stenosis Obstipation Dark stools Lower abdominal pain Gastroenteritis Neck pain on right side URI (upper respiratory infection) Back pain Cough Chest pain Rhinitis Elevated BP without diagnosis of hypertension Non-rheumatic aortic stenosis Diverticulitis Anxiety GERD (gastroesophageal reflux disease) Cat scratch Cat bite Epigastric discomfort Diarrhea Nausea Viral syndrome GERD (gastroesophageal reflux disease) Neuropathy Arthritis GERD (gastroesophageal reflux disease) HTN (hypertension) Irritable bowel Heart murmur Surgical History Hx of esophagogastroduodenoscopy Hx of colonoscopy History of tonsillectomy History of appendectomy Family History Father No problems noted. Mother No problems noted. Social History Household Members: Children Housing: House Are you a primary child care attendant to a significant other at home: No Do you presently have visiting nurse or other home services: No Alcohol intake: never Patient Tobacco Use Status: Former Tobacco user Quit Date: 2013 Tobacco use type: Cigarette e-Cigarette/Vaping Use: Never Used Second Hand Smoke Exposure: No Advance Directives Date on File: 03/28/23 service: No Current occupational status: retired Cognitive needs: No Hearing needs: No Vision needs: Yes (glasses) Questionnaire Thrive Questionnaire Date Thrive assessed: 01/23/23 PAIGE-7 AMB Questionnaire PAIGE-7 Date PAIGE - 7 assessed: 10/06/22 Source: Developed by Drs. Anatoliy Gavin, Peyton Hunt, Austyn Weber and colleagues, with an educational kentrell from [email or web address]. Review of Systems Const Denies headache(s) Eyes Denies loss of vision ENT Details: + epistaxis Denies vertigo, Denies dizziness, Denies headache(s), Reports nose pain and Denies sore throat Card Denies chest pain, Denies leg edema and Denies lightheadedness Resp Reports cough, Denies hemoptysis and Denies wheezing GI Denies abdominal pain, Denies melena, Denies constipation, Denies diarrhea and Denies vomiting Denies urinary frequency, Denies dysuria and Denies urinary urgency Musc Denies arthralgias, Denies joint swelling, Denies numbness and Denies tingling Neuro Denies Abnormal speech present, Denies behavioral changes, Denies vertigo, Denies dizziness, Denies headache(s), Denies loss of vision, Denies memory loss, Denies numbness and Denies tingling Psych Denies anxiety, Denies behavioral changes, Denies depression, Denies memory loss and Denies panic attacks Pradip/Lymph Denies easy bleeding and Denies easy bruising Aller/Immun Denies wheezing Physical exam (Primary Care) Vital Signs: Last Vital Signs Pulse 100 08/22/23 14:54 Resp 16 08/22/23 14:54 BP 118/60 08/22/23 14:54 BMI result Body Mass Index 28.5 Tobacco/Smoking Status: Tobacco use Status Tobacco use date assessed 05/15/23 08/22/23 14:54 Patient Tobacco Use Status Former Tobacco user 08/22/23 14:54 Tobacco use type Cigarette 08/22/23 14:54 e-Cigarette/Vaping Use Never Used 08/22/23 14:54 Thrive Assessment: Date of Thrive Assessment Date Thrive assessed 01/23/23 08/22/23 14:54 Const General: healthy appearing, no acute distress, alert and awake Nutritional Appearance: well nourished Orientation/consciousness: oriented to person, oriented to place and oriented to time HENMT Other: Needs to mucosa erythematous on right side, small amount of bleeding in the anterior aspect nasal septum. Ears: TM's normal bilaterally General nose exam: Normal nasal mucous membranes and turbinates present Eyes Conjunctivae: conjunctivae normal Sclerae: sclerae normal Pupils: Equal, round and reactive pupils present Neck Neck: Yes no lymphadenopathy and Yes no JVD Thyroid: Thyroid normal Carotids: no bruits Resp Effort & Inspection: normal respiratory effort and not tachypneic Auscultation: no crackles, no rales, no rhonchi and no wheezes Cardio Rate: regular rate Rhythm: regular rhythm Heart sounds: no murmurs and normal S1 and S2 GI Palpation (GI): Soft to palpation, nontender, no hepatomegaly and no splenomegaly Auscultation: normal bowel sounds Skin General skin exam: no rashes or lesions noted and dry skin Neuro General: oriented to person, oriented to place and oriented to time Cranial nerves: Yes Equal, round and reactive pupils present Speech: No Abnormal speech present Gait exam (Neuro): Normal gait present Motor exam (neuro): no tremor noted Extrem Right upper extremity: full ROM Left upper extremity: full ROM Right lower extremity: full ROM; no edema Left lower extremity: full ROM; no edema Psych Mental Status: mental status grossly normal Speech and movement: Normal speech and movement present Affect: normal affect Attitude: cooperative Thought process: Normal thought process present Assessment and Plan Assessment & Plan (1) Epistaxis: Code(s): R04.0 - Epistaxis Plan: Likely due to nasal mucosa irritation. Advised on moisturizing the in her nasal mucosa and nasal septum with Vaseline. Also can use nasal saline sprays. (2) Hemoptysis: Code(s): R04.2 - Hemoptysis Plan: Due to patient's reports of productive cough speckled with brown will send for CT chest. Did have 5 mm lung nodule in 2020 he has found on chest CT. She is a former smoker. (3) Former smoker: Code(s): Z87.891 - Personal history of nicotine dependence Orders: Orders CT chest w IV con Today R04.2 - Hemoptysis, Z87.891 - Personal history of nicotine dependence Coding Level of Care Code Est Pt Level 4 (81295) Diagnoses Epistaxis R04.0 Hemoptysis R04.2 Former smoker Z87.891
== END 2023-08-22 15:50 | disposition home or self-care (01) ==
PROVIDERS: PCP Physician Assistant; Visit Provider Physician Assistant
DX: R04.0 Epistaxis (principal); R04.2 Hemoptysis; Z87.891 Personal history of nicotine dependence
CPT/HCPCS: 99214

== ENCOUNTER → 2023-09-25 11:02 | Outpatient (REF) | payer MEDICARE, OTHER, SELFPAY ==
--- NOTE | 2023-09-25 11:07 | CA_ITS ---
Transthoracic Echocardiogram Patient (Last, First, Middle): Bella Henley G Gender: Female Date of : 1940 Age: 82 Procedure Date: 09/25/2023 Procedure Type: Transthoracic Echocardiogram Location: OP Height: 167.64 cm Weight: 77.11 kg BSA: 1.87 m2 Heart Rate: bpm BP: 117 / 60 mmHg Captain Room Service: Referring MD: Brenda Nevarez MD Symptoms: S/P TRANSAORTIC VALVE REPLACEMENT TAVR Study Quality: Good ECG Rhythm: Sinus Conclusions: - The left ventricular systolic function is normal. The calculated ejection fraction is 68% by biplane method. - A bioprosthetic aortic valve is present. The prosthetic aortic valve appears to be functioning normally. Findings Left Ventricle Normal left ventricular cavity size. There is moderately increased left ventricular wall thickness. The left ventricular systolic function is normal. The calculated ejection fraction is 68% by biplane method. There is no evidence of regional wall motion abnormalities. Evidence suggests grade I (mild) diastolic dysfunction. Right Ventricle Normal right ventricular cavity size and systolic function. Atria Both atria are normal in size. Aortic Valve A bioprosthetic aortic valve is present. The prosthetic aortic valve appears to be functioning normally. There is no aortic valve regurgitation. Mitral Valve There is mild mitral annular calcification. There is trace mitral valve regurgitation. There is no mitral valve stenosis. Pulmonic Valve The pulmonic valve is likely normal. Tricuspid Valve There is trace tricuspid valve regurgitation. There is no evidence of pulmonary hypertension. Great Vessels The asc aorta is normal in size. Venous The inferior vena cava is normal in size and collapses greater than 50% with inspiration. Pericardium/Pleural There is no evidence of pericardial effusion. Prior Study Comparison Changes noted compared to prior study dated: 06/06/2023. s/p TAVR. Measurements 2D Linear Measurements IVSd: 1.33 0.6-0.9/0.6-1.0 cm LVIDd: 2.53 3.9-5.3/4.2-5.9 cm LVIDd Index: 1.35 2.4-3.2/2.2-3.1 cm/m2 LVIDs: 1.68 2.0-3.6 cm LVPWd: 1.34 0.7-1.1 cm Ao Root: 3.60 2.1-3.5 cm LA Diam: 2.70 2.7-3.8/3.0-4.0 cm LAIDs Index: 1.44 1.5-2.3 cm/m2 LV Mass: 129.39 67-162/88-224 g LV Mass Index: 69.19 43-95/49-115 g/m2 LVOT Diam: 1.90 3.0+(-)1.3 cm 2D Systolic Function EF 4C: 73.30 >55% EF 2C: 62.80 >55% EF BiP: 68.30 >55% Mitral Valve MV Pk E: 0.76 MV PK A: 1.32 MV Decel Time: 120.00 E/A: 0.60 E'Lateral: 6.64 E'Medial: 6.64 E/E' Med: 11.40 E/E' Lat: 11.40 PHT: 35.00 MVA PHT: 6.29 Decel [place]: 6.31 Aortic Valve AoV Pk Anthony: 1.92 AoV Mn Anthony: 1.24 AoV VTI: 0.40 AoV Pk Grad: 15.00 Aov Mn Grad: 7.00 LULA Cont.VTI: 2.41 LVOT LVOT Pk Anthony: 1.47 LVOT Mn Anthony: 1.01 LVOT VTI: 0.34 LVOT Pk Grad: 9.00 LVOT Mn Grad: 5.00 LVOT Diam: 1.90 LVOT Area: 2.84 Diastolic Function MV Pk E: 0.76 MV Pk A: 1.32 E/A: 0.60 E'Medial: 6.64 E/E' Med: 11.40 E' Laterial: 6.64 E/E' Lat: 11.40 Right Ventricle TAPSE (mm): 24.00 TVS' Anthony: 11.00 Tricuspid Valve TR Pk Anthony: 1.94 TR Pk Grad: 15.00 RA Press: 3.00 RVSP: 18.00 Great Vessels Aorta Ao Root-2D: 3.60 2.0-3.7 cm Ao Asc: 3.10 2.1-3.4 cm Pulmonary Valve PV Pk Anthony: 0.92 Peak PV Grad: 3.00 Updated in Other Vendor System with Status of Final Tre Duffy MD electronically signed on 09/27/2023 8:52:04 AM with status of Final
== END ==
LOC: HO.CARD 11:02
PROVIDERS: PCP Physician Assistant; Visit Provider Internal Medicine Cardiovascular Disease
DX: Z95.4 Presence of other heart-valve replacement (principal)
CPT/HCPCS: 93306

== ENCOUNTER → 2023-09-25 11:07 | Outpatient (BNV) | payer MEDICARE, OTHER, SELFPAY | PROVIDERS: PCP Physician Assistant; Visit Provider Internal Medicine | DX: I34.81 Nonrheumatic mitral (valve) annulus calcification (principal); Z95.2 Presence of prosthetic heart valve | CPT/HCPCS: 93306 ==

== ENCOUNTER 2023-09-27 14:31 | Outpatient (AMB) | payer MEDICARE, OTHER, SELFPAY ==
[2023-09-27 14:33] VITALS: BP 118/62; PULSE 99; O2SAT 99; BMI 28.2
--- NOTE | 2023-09-27 14:33 | A.OFFPC_ITS ---
Vital Signs 09/27/23 14:33 Height 5 ft 6 in Weight 79.379 kg BMI 28.2 BP 118/62 Blood Pressure Location Lt brachial Position Sitting Pulse 99 Pulse Source Pulse Oximeter Pulse Oximetry (%) 99 Oxygen Delivery Method Room Air Intake Visit Reasons: [facility] 08/29-09/06 TAVR/Stroke Curam Developer Required: No Automatic Data Processing Planner: Not Required per policy Accompanied by: Self / Same As Patient Allergies buspirone Allergy (Intermediate, Verified 10/01/23 10:15) Rash Sulfa (Sulfonamide Antibiotics) Allergy (Intermediate, Verified 10/01/23 10:15) RASH amoxicillin [From AUGMENTIN] Allergy (Unknown, Verified 09/27/23 14:33) PER H&P clavulanic acid [From AUGMENTIN] Allergy (Unknown, Verified 10/01/23 10:15) PER H&P garlic [GARLIC] Allergy (Unknown, Verified 10/01/23 10:15) PER H&P metronidazole [From FLAGYL] Allergy (Unknown, Verified 10/01/23 10:15) OCULAR MIGRAINES penicillamine Allergy (Unknown, Verified 10/01/23 10:15) Unknown ciprofloxacin Adverse Reaction (Intermediate, Verified 10/01/23 10:15) neuropathic pain lisinopril Adverse Reaction (Intermediate, Verified 10/01/23 10:15) Cough nitrofurantoin Adverse Reaction (Mild, Verified 10/01/23 10:15) GI side effects cefuroxime Allergy (Intermediate, Uncoded 09/27/23 14:33) wheezy cough/itch environmental Allergy (Unknown, Uncoded 09/27/23 14:33) Unknown flagyl Allergy (Unknown, Uncoded 09/27/23 14:33) Unknown From KEFLEX Allergy (Unknown, Uncoded 09/27/23 14:33) RASH Metoprolol Tartrate Allergy (Unknown, Uncoded 09/27/23 14:33) Unknown Sulfacet-R Allergy (Unknown, Uncoded 09/27/23 14:33) Unknown Medication List - Last Reconciled 10/03/23 by ROMAINE Briseno acetaminophen 1,000 mg PO Q6H PRN alprazolam 0.25 mg PO BID PRN aspirin 81 mg PO DAILY citalopram 10 mg PO BEDTIME clopidogrel 75 mg PO DAILY cyanocobalamin (vitamin B-12) (Vitamin B-12) 1,000 mcg PO DAILY docusate sodium 100 mg PO BID fluticasone propionate 50 mcg/actuation 2 sprays intranasal DAILY hydroxyzine HCl 25 mg PO TID PRN ondansetron HCl 4 mg PO Q8H PRN Tobacco use date assessed: 09/27/23 Fall risk assessment: No Falls in past year Last assessed Fall Risk: 09/27/23 Dental Screening Dental Screen Date: 09/27/23 Did you have a dental visit in the last 12 months?: No Did you have a dental problem in the last 6 months where you did not have access to dental care?: No Was dental information given to patient?: Patient has dentist HPI HPI Comments History of Present Illness Details 82-year-old female with history of hyper tension, hypercholesterolemia, progressive dyspnea on exertion, occular migraines, fatigue and evidence of severe aortic stenosis on echocardiogram presents to office today for hospital discharge follow-up. Discharge medications have been reviewed and reconciled. She was admitted to [facility] from 08/29-09/07 for TAVR procedure due to severe . Course was unfortunately complicated by multiple embolic strokes. She underwent TAVR procedure on 08/29 with new left bundle branch block noted on EKG following procedure which had resolved by date of discharge. She was started on dual antiplatelet therapy with aspirin and Plavix. Unfortunately patient developed aphasia, ataxia, LUE/LLE drift which resolved except for mild aphasia. But on 09/02 the patient developed new onset right- sided paresthesias in the arm, leg, cheek with slight tongue deviation to the right. CT of the head showed redemonstrated prior infarcts. Subsequent MRI of the brain showed multiple areas of acute infarct in superomedial left cerebellar hemisphere, posterior lateral right temporal occipital junction, right hippocampal formation as well as subacute infarcts in the frontal lobes with involvement of the right precentral gyrus as well as possible microvascular ischemia. She was evaluated by Neurology recommending continuing aspirin 81 mg and Plavix 75 mg daily for a total of 6 months. She was started on atorvastatin 80 mg daily with LDL noted to be 98 with goal less than 70. A1c was 5.3. Given concerns for TTP with PLT count 100, she was evaluated by heme/onc but this was thought to be her baseline vs 2/2 acute illness rather than DIC or TTP. PLT count on dc was 145, after 6 days of DAPT. She was treated with fondaparinux for DVT prophylaxis while admitted. She was evaluated by PT recommending discharge to [facility]. She is now back home with her with PT in home for EDUCATION TRAINER, PT, OT. She feels she is doing well overall. Denies any focal weakness, paresthesias, visual changes, gait disturbance, balance issues, slurred speech, dysphagia, facial droop, lightheadedness. She does report short term memory loss which she feels is new. She also reports intermittent occipital headaches. She also reports her citalopram was increased to 20mg at bedtime about 1 month ago due to worsening anxiety. She notes some improvement but does not feel she her anxiety is as controlled as she would like. She still takes alprazolam 1-2 times daily. No si/hi, dpression. [facility] Medical History (Updated 10/03/23 @ 16:09 by ROMAINE Briseno) Anxiety Breast cancer screening Breast pain, left Elevated vitamin B12 level Neck muscle spasm Strain of neck muscle Low back pain Pubic ramus fracture Sore throat Skin tear of upper arm without complication Head injury, acute, without loss of consciousness Fall Dizziness LLQ abdominal pain Medication noncompliance due to cognitive impairment RLQ abdominal pain Sinusitis Flu syndrome Precordial chest pain Atypical chest pain Cold intolerance Former smoker Pulmonary nodule Abnormal lung sounds Fever Constipation Bilateral calf pain Nausea Left lower quadrant abdominal pain Dysuria Fatigue Heart palpitations Lower extremity weakness HTN (hypertension) Aortic stenosis Obstipation Dark stools Lower abdominal pain Gastroenteritis Neck pain on right side URI (upper respiratory infection) Back pain Cough Chest pain Rhinitis Elevated BP without diagnosis of hypertension Non-rheumatic aortic stenosis Diverticulitis GERD (gastroesophageal reflux disease) Cat scratch Cat bite Epigastric discomfort Diarrhea Nausea Viral syndrome GERD (gastroesophageal reflux disease) Neuropathy Arthritis GERD (gastroesophageal reflux disease) HTN (hypertension) Irritable bowel Heart murmur Surgical History (Updated 10/03/23 @ 16:09 by ROMAINE Briseno) S/P TAVR (transcatheter aortic valve replacement) Hx of esophagogastroduodenoscopy Hx of colonoscopy History of tonsillectomy History of appendectomy Family History Father No problems noted. Mother No problems noted. Social History Household Members: Children Housing: House Are you a primary livestock caretaker to a significant other at home: No Do you presently have visiting nurse or other home services: No Alcohol intake: never Patient Tobacco Use Status: Former Tobacco user Quit Date: 2013 Tobacco use type: Cigarette Smoked in Last 30 Days: No e-Cigarette/Vaping Use: Never Used Second Hand Smoke Exposure: No Use of substances other than those prescribed or required for medical reasons: No Advance Directives: Yes Advance Directives on File: Yes Advance Directives Date on File: 03/28/23 service: No Current occupational status: retired Cognitive needs: No Hearing needs: No Vision needs: Yes (glasses) Questionnaire PHQ-9 Over the last 2 weeks, how often have you been bothered by any of the following problems? 1. Little interest or pleasure in doing things: several days 2. Feeling down, depressed, or hopeless: nearly every day 3. Trouble falling or staying asleep, or sleeping too much: not at all 4. Feeling tired or having little energy: several days 5. Poor appetite or overeating: several days 6. Feeling bad about yourself - or that you are a failure or have let yourself or your family down: not at all 7. Trouble concentrating on things, such as reading the newspaper or watching television: not at all 8. Moving or speaking so slowly that other people could have noticed. Or the opposite - being so fidgety or restless that you have been moving around a lot more than usual: not at all 9. Thoughts that you would be better off or of hurting yourself in some way: not at all Total score: 6 Depression Screening Interpretation: Positive Depression Screening Done: Yes 34670 - PHQ-9 Billing: Yes Source: Developed by Drs. Anatoliy Gavin, Peyton Hunt, Austyn Weber and colleagues, with an educational kentrell from [employer]. Thrive Questionnaire Date Thrive assessed: 09/27/23 I am a: Patient What is your living situation today?: I have a steady place to live Within the past 12 months, did the food you bought not last and you didn't have the money to get more?: Never true Within the past 12 months, did you worry whether your food would run out before you got money to buy more?: Never true Do you have trouble paying for medicines?: No Do you have trouble getting transportation to medical appointments?: No Do you have trouble paying your heating and electricity bill?: No Do you have trouble taking care of your child, family member or friend?: No Do you have trouble with day-to-day activities such as bathing, preparing meals, shopping, managing finances, etc.?: No Are you currently unemployed and looking for a job?: No Are you interested in more education?: No Please select the resources that you would like help with: None THRIVE Score: 0 AUDIT C Alcohol Use Questionnaire (AUDIT-C) 1. How often do you have a drink containing alcohol?: Never 3. How often do you have six or more drinks on one occasion?: Never Total Score: 0 PAIGE-7 AMB Questionnaire PAIGE-7 Date PAIGE - 7 assessed: 09/27/23 Feeling nervous, anxious, or on edge: 0 = Not at all Not being able to stop or control worryin = Not at all Worrying too much about different things: 0 = Not at all Trouble relaxin = Not at all Being so restless that it is hard to sit still: 0 = Not at all Becoming easily annoyed or irritable: 0 = Not at all Feeling afraid as if something awful might happen: 0 = Not at all Total PAIGE-7 score (0-4 normal; 5-9 mild; 10-14 moderate; 15-21 severe): 0 Source: Developed by Drs. Anatoliy Gavin, Peyton Hunt, Austyn Weber and colleagues, with an educational kentrell from [employer]. Review of Systems Const Details: General: No fevers, malaise, unintentional weight loss HEENT: No blurred vision, diplopia Cardiovascular: No chest pain, palpitations, lightheadedness, or leg edema Respiratory: No shortness of breath, wheezing, cough GI: No abdominal pain, nausea, vomiting, diarrhea, constipation, melena, hematochezia : No dysuria, hematuria, increased urinary frequency, decreased urinary output MSK: No myalgia, back pain Neuro: + headache, +memory impairment. No weakness, paresthesias, facial droop, slurred speech, dysphagia Skin: No rashes or lesions Physical exam (Primary Care) Vital Signs: Last Vital Signs Pulse 99 09/27/23 14:33 BP 118/62 09/27/23 14:33 Pulse Ox 99 09/27/23 14:33 Oxygen Delivery Method Room Air 09/27/23 14:33 BMI result Body Mass Index 28.2 Tobacco/Smoking Status: Tobacco use Status Tobacco use date assessed 09/27/23 09/27/23 14:35 Patient Tobacco Use Status Former Tobacco user 09/27/23 14:35 Tobacco use type Cigarette 09/27/23 14:35 e-Cigarette/Vaping Use Never Used 09/27/23 14:35 PHQ-9: PHQ-9 Score PHQ-9: Total score 6 10/03/23 15:53 Depression Screening Interpretation: Positive Thrive Assessment: Date of Thrive Assessment Date Thrive assessed 09/27/23 09/27/23 14:35 Const Other: Constitutional - Awake and Alert, No apparent distress Eyes - PERRLA, EOMI Cardiovascular - S1S2, RRR, No edema Respiratory - Normal lung expansion, Normal respiratory effort, No respiratory distress, CTA bilaterally Gastrointestinal - NT / ND; +BS; No rebound or guarding Extremities - no calf tenderness bilaterally, no swelling Skin - Warm/Dry Neurological - Alert & oriented x3, CN II-XII in tact, 5/5 strength BUE and BLE, normal finger to nose testing, no gait ataxia. Short term memory impairment observed Psychological - Appropriate affect Results Reviewed Results Reviewed: h&p, discharge summary, neuro consult, heme/onc consult, ct head, MRI brain, echo, cbc, bmp, lipid panel, rehab evaluation Assessment and Plan Assessment & Plan (1) Severe aortic stenosis: Code(s): I35.0 - Nonrheumatic aortic (valve) stenosis Plan: s/p TAVR. Asymptomatic, appears stable. Had new LBBB following procedure that resolved prior to admission. Continue DAPT x6 months per cardiology. Platelet levels stable. Follow up with cardiology as scheduled. (2) Embolic stroke: Code(s): I63.9 - Cerebral infarction, unspecified Plan: s/p TAVR procedure. Multiple embolic infarcts noted on MRi brain. Overall, neuro deficits have resolved though she feels her memory impairment has worsened. Advised to continue DAPT as advised. Follow up with cardiology as schedule. Referral placed to [facility] neuro as requested- see below. Continue working with PT/OT/EDUCATION TRAINER at home. (3) Memory impairment: Code(s): R41.3 - Other amnesia Plan: Appears to have been suffering from some degree of memory impairment previously noted by PCP over the summer, however short term memory loss appears to have worsening following embolic strokes. She does have evidence of right hippocampal acute infarct on MRI which could be contributory. She will continue working with OT/PT to continue therapies for cognition/perception, ADL assistance and assistance with mobility and transfers. She is also referred to [facility] neurology (Dr. Zamora) at her request for further evaluation and management. Recommended memory aides such as lists. (4) Anxiety: Code(s): F41.9 - Anxiety disorder, unspecified Plan: Improved, but remains uncontrolled. Will increase citalopram to 30 mg daily. She is advised that alprazolam is a highly addictive substance it should not be stopped abruptly due to risk of severe withdrawal. She is advised to only take this medication as needed which appears to be about once daily at this time and can continue tapering as baseline anxiety improves with increased SSRI dose. Follow-up with PCP on 10/18 as scheduled. (5) Thrombocytopenia: Code(s): D69.6 - Thrombocytopenia, unspecified Plan: Appears chronic. Was evaluated by heme/onc while admitted, not found to be consistent with TTP or DIC. Improved throughout admission despite initiating dual antiplatelet therapy with aspirin and Plavix. She should continue aspirin and Plavix as advised for 6 months. Follow-up with PCP for repeat CBC Orders: Referrals Neurology Referral I63.9 - Cerebral infarction, unspecified, R41.3 - Other amnesia Coding Level of Care Code Tele Est Pt Level 5 (37091) Diagnoses Severe aortic stenosis I35.0 Embolic stroke I63.9 Memory impairment R41.3 Anxiety F41.9 Thrombocytopenia D69.6 Time Spent (min) 55 Comment time spent reviewing above, interview/exam, documentation time
== END 2023-09-27 16:19 | disposition home or self-care (01) ==
PROVIDERS: PCP Physician Assistant; Visit Provider Physician Assistant
DX: D69.6 Thrombocytopenia, unspecified (principal); I63.9 Cerebral infarction, unspecified; R41.3 Other amnesia; I35.0 Nonrheumatic aortic (valve) stenosis; F41.9 Anxiety disorder, unspecified
CPT/HCPCS: 99215

== ENCOUNTER 2023-10-01 09:52 | Emergency (ER) | payer MEDICARE, OTHER, SELFPAY ==
--- NOTE | ~2023-10-01 | XR_ITS ---
EXAMINATION: XR CHEST 2 VIEWS CLINICAL INFORMATION: Cough. COMPARISON: Chest radiographs dated 08/09/2003; CT chest dated 06/14/2022. TECHNIQUE: Frontal and lateral views of the chest were obtained. FINDINGS: The heart, great vessels, pulmonary vasculature and mediastinum are stable. No congestive heart failure is seen. There is a stable ectasia of the aortic arch, with atherosclerotic calcifications. The lungs show no focal infiltrate, effusion or pneumothorax. There is mild biapical pleural and parenchymal scarring. There is no acute osseous abnormality. XR/XR chest 2V IMPRESSION: No active cardiopulmonary disease.
[2023-10-01 10:11] VITALS: BP 142/58; PULSE 95; RESP 20; TEMP 37.1; O2SAT 94; BMI 27.9
[2023-10-01 10:46] LABS: MANUAL DIFF FLAG NO
[2023-10-01 10:49] LABS: Appearance Urine Clear; Basophils Percent Auto 0.9 % (0-2); Color Urine Yellow; Eosinophils Absolute Auto 0.2 X10*3/uL (0.0-0.4); Eosinophils Percent Auto 5.9 % (0-4); Glucose Urine UA Negative (Negative); Hematocrit 29.9 % (37.0-47.0); Hemoglobin 9.5 g/dl (12.0-16.0); Imm Gran Abs Auto 0.01 X10*3/uL (0.00-0.03); Imm Gran Pct Auto 0.3 % (0.0-0.4); Leukocyte Esterase Urine Trace (Negative); Lymphocytes Absolute Auto 0.7 X10*3/uL (1.2-4.9); Lymphocytes Percent Auto 20.8 % (20-40); Mean Corpuscular HGB Conc 31.8 g/dl (31.0-35.0); Mean Corpuscular Hemoglobin 29.6 pg (27.0-33.0); Mean Corpuscular Volume 93.1 fL (80.0-98.0); Mean Platelet Volume 11.8 fL (9.4-12.3); Monocytes Absolute Auto 0.2 X10*3/uL (0.1-1.2); Monocytes Percent Auto 6.7 % (2-11); Neutrophils Absolute Auto 2.2 x10*3/uL (2.0-8.3); Neutrophils Percent Auto 65.4 % (45-73); Nitrite Urine Negative (Negative); PH 5.5 (5.0-9.0); Platelet Count 104 X10*3/uL (160-400); Red Blood Count 3.21 X10*6/uL (4.20-5.50); Red Cell Distribution Width 14.1 % (11.0-16.0); UMIC TRIGGER UACC YES; Urine Blood Negative (Negative); Urine Ketones Negative (Negative); Urine Protein Negative (Neg-Trace); White Blood Count 3.4 X10*3/uL (4.8-10.8)
[2023-10-01 10:51] LABS: Bacteria Urine None Seen (None Seen); Hyaline Casts Urine 0-2 /LPF (0-2); RBC Urine 0-2 /HPF (0-2); Squamous Epithelial Cell Urine 0-2 /HPF (0-2); WBC Urine 0-5 /HPF (0-5)
[2023-10-01 11:04] LABS: Alanine Aminotransferase 18 U/L (0-31); Albumin Level 3.9 g/dL (3.5-5.0); Alkaline Phosphatase 103 U/L (39-117); Anion Gap 13 (12-20); Aspartate Amino Transferase 20 U/L (5-31); Bilirubin Direct 0.2 mg/dL (0.0-0.5); Bilirubin Total 0.4 mg/dL (0.0-1.0); Blood Urea Nitrogen 18 mg/dL (9-16); Calcium 9.8 mg/dL (8.4-10.2); Carbon Dioxide 29 mmol/L (22-29); Chloride 103 mmol/L (96-108); Creatinine Clr Calc Pharmacy 52.7; Estimated Glomerular Filt Rate > 60; Glucose Random 91 mg/dL (60-115); Lipase 22 U/L (8-78); Potassium 4.3 mmol/L (3.3-5.1); Sodium 141 mmol/L (135-145); Total Protein 6.9 g/dL (6.5-8.0)
[2023-10-01 12:40] VITALS: BP 166/83; PULSE 81; RESP 16; TEMP 36.4; O2SAT 94
--- NOTE | 2023-10-01 13:05 | PC.NURSE ---
Pt is a&ox4 coming in for abd pain and frequent urination. abd soft, tender. MAEI, able to make needs known. Normal sinus 85hr. denies cp/sob, ambulates independently.
--- NOTE | 2023-10-01 13:19 | ED_ITS ---
HPI - General Adult General Chief complaint: Abdominal Pain Stated complaint: UTI Time Seen by Provider: 10/01/23 12:33 Source: patient and RN notes reviewed Mode of arrival: ambulatory Limitations: no limitations History of Present Illness HPI narrative: This is a 82-year-old female, history of anxiety, HTN, and aortic stenosis presenting to the emergency department for evaluation suprapubic pressure, nausea, urinary urgency and frequency and dysuria x3 days. She states that her symptoms are intermittent and wax and wane in severity. Denies any hematuria. She denies any fevers, chills, chest pain, shortness of breath. She denies any back or flank pain. Denies taking any medications at home to treat her current symptoms. No other complaints or concerns at this time. MD complaint: ?uti Onset (ago): day(s) Radiation: non-radiation Severity: mild Quality: burning Pain Consistency: constant Relieving factors: none Exacerbating factors: none Associated symptoms: nausea/vomiting Treatments prior to arrival: none Related Data Home Medications Medication Instructions Recorded Confirmed acetaminophen 500 mg tablet 1,000 mg PO Q6H PRN Pain 03/28/23 08/22/23 alprazolam 0.25 mg tablet 0.25 mg PO BID PRN Anxiety 03/28/23 08/22/23 citalopram 10 mg tablet 10 mg PO BEDTIME 03/28/23 08/22/23 ondansetron HCl 4 mg tablet 4 mg PO Q8H PRN Nausea 03/28/23 08/22/23 aspirin 81 mg tablet,delayed 81 mg PO DAILY 09/27/23 release clopidogrel 75 mg tablet 75 mg PO DAILY 09/27/23 docusate sodium 100 mg capsule 100 mg PO BID 09/27/23 Previous Rx's Medication Instructions Recorded cyanocobalamin (vitamin B-12) 1,000 mcg PO DAILY #30 tabs 05/22/23 1,000 mcg tablet (Vitamin B-12) hydroxyzine HCl 25 mg tablet 25 mg PO TID PRN itching #10 tabs 07/21/23 fluticasone propionate 50 2 spray intranasal DAILY #16 grams 08/14/23 mcg/actuation nasal spray,suspension Allergies Allergy/AdvReac Type Severity Reaction Status Date / Time buspirone Allergy Intermediate Rash Verified 10/01/23 10:15 Sulfa (Sulfonamide Allergy Intermediate RASH Verified 10/01/23 10:15 Antibiotics) amoxicillin [From AUGMENTIN] Allergy Unknown PER H&P Verified 09/27/23 14:33 clavulanic acid Allergy Unknown PER H&P Verified 10/01/23 10:15 [From AUGMENTIN] garlic [GARLIC] Allergy Unknown PER H&P Verified 10/01/23 10:15 metronidazole [From FLAGYL] Allergy Unknown OCULAR Verified 10/01/23 10:15 MIGRAINES penicillamine Allergy Unknown Unknown Verified 10/01/23 10:15 ciprofloxacin AdvReac Intermediate neuropathic Verified 10/01/23 10:15 pain lisinopril AdvReac Intermediate Cough Verified 10/01/23 10:15 nitrofurantoin AdvReac Mild GI side Verified 10/01/23 10:15 effects cefuroxime Allergy Intermediate wheezy Uncoded 09/27/23 14:33 cough/itch environmental Allergy Unknown Unknown Uncoded 09/27/23 14:33 flagyl Allergy Unknown Unknown Uncoded 09/27/23 14:33 From KEFLEX Allergy Unknown RASH Uncoded 09/27/23 14:33 Metoprolol Tartrate Allergy Unknown Unknown Uncoded 09/27/23 14:33 Sulfacet-R Allergy Unknown Unknown Uncoded 09/27/23 14:33 Review of Systems 2 Review of Systems: Yes all other systems are reviewed and are negative Constitutional: Constitutional: Reports as per [facility] Past Medical History Medical History (Updated 10/01/23 @ 16:22 by ROMAINE Mao) Breast cancer screening Breast pain, left Elevated vitamin B12 level Neck muscle spasm Strain of neck muscle Low back pain Pubic ramus fracture Sore throat Skin tear of upper arm without complication Head injury, acute, without loss of consciousness Fall Dizziness LLQ abdominal pain Medication noncompliance due to cognitive impairment RLQ abdominal pain Sinusitis Flu syndrome Precordial chest pain Atypical chest pain Cold intolerance Former smoker Pulmonary nodule Abnormal lung sounds Fever Constipation Bilateral calf pain Nausea Left lower quadrant abdominal pain Dysuria Fatigue Heart palpitations Lower extremity weakness HTN (hypertension) Aortic stenosis Obstipation Dark stools Lower abdominal pain Gastroenteritis Neck pain on right side URI (upper respiratory infection) Back pain Cough Chest pain Rhinitis Elevated BP without diagnosis of hypertension Non-rheumatic aortic stenosis Diverticulitis Anxiety GERD (gastroesophageal reflux disease) Cat scratch Cat bite Epigastric discomfort Diarrhea Nausea Viral syndrome GERD (gastroesophageal reflux disease) Neuropathy Arthritis GERD (gastroesophageal reflux disease) HTN (hypertension) Irritable bowel Heart murmur Surgical History Hx of esophagogastroduodenoscopy Hx of colonoscopy History of tonsillectomy History of appendectomy Family History Family History Father No problems noted. Mother No problems noted. Social History Social History Household Members: Children Housing: House Are you a primary resident care supervisor to a significant other at home: No Do you presently have visiting nurse or other home services: No Alcohol intake: never Patient Tobacco Use Status: Former Tobacco user Quit Date: 2013 Tobacco use type: Cigarette Smoked in Last 30 Days: No e-Cigarette/Vaping Use: Never Used Second Hand Smoke Exposure: No Use of substances other than those prescribed or required for medical reasons: No Advance Directives: Yes Advance Directives on File: Yes Advance Directives Date on File: 03/28/23 service: No Current occupational status: retired Cognitive needs: No Hearing needs: No Vision needs: Yes (glasses) Physical Exam ED Vital Signs: Vital Signs - 24 hr 10/01/23 10:11 10/01/23 12:40 10/01/23 15:31 Temperature 98.7 F 97.6 F 98.0 F Pulse Rate 95 81 87 Respiratory Rate 20 16 16 Blood Pressure 142/58 H 166/83 H 145/77 H Pulse Oximetry 94 94 97 Oxygen Delivery Method Room Air Room Air Room Air BMI result Body Mass Index 27.9 Const General: cooperative, comfortable and no acute distress Orientation/consciousness: patient oriented x3 Limitations: no limitations [facility] Head: Yes normal to inspection, Yes normocephalic and Yes atraumatic Ears: hearing grossly normal bilaterally General nose exam: Normal external nose present Face and sinus: Yes normal facial exam Mouth: Normal oral and palatal mucosa present, oropharynx normal and moist mucous membranes Throat: Yes posterior oropharynx normal Eyes General: appearance normal, both eyes and all related structures Eyelids: Yes eyelids normal Conjunctivae: conjunctivae normal Sclerae: sclerae normal Pupils: Equal, round and reactive pupils present EOM: EOMs intact bilaterally Neck Neck: Yes normal visual inspection, Yes full ROM and Yes no lymphadenopathy Lymphatic: no lymphadenopathy noted Chest Chest palpation & inspection: normal inspection of the chest Resp Effort & Inspection: normal respiratory effort and able to speak in complete sentences Auscultation: clear to auscultation bilaterally, no crackles, no rales, no rhonchi and no wheezes Cardio Rate: regular rate Rhythm: regular rhythm Heart sounds: S1 normal heart sound present and S2 normal heart sound present GI Other: Abdomen is soft, nontender, nondistended. Inspection: Yes normal to inspection Skin General skin exam: no rashes or lesions noted Trauma: no lacerations or abrasions Wounds: no wounds Neuro General: patient oriented x3 and moves all extremities Cranial nerves: Yes Equal, round and reactive pupils present Extrem General: Yes normal to inspection Right upper extremity: normal to inspection Left upper extremity: normal to inspection Right lower extremity: normal to inspection Left lower extremity: normal to inspection Course Reevaluation(s) Reevaluation #1: Urine returns only revealing small leukoesterases. Discussed findings with pt. Pt centered care discussion was performed regarding little evidence of UTI on visit today. Pt has extensive medication allergies including most antibiotics. Her urine cultures often return as negative without any findings of UTI. Dicussed with pt that we can wait until we receive the urine culture to treat. Pt is in agreement. Pt given strict return precautions. Pt had negative covid and flu test. She is stable for d.c, Medications Administered Discontinued Medications Generic Name Dose Route Start Last Admin Trade Name Freq PRN Reason Stop Dose Admin Ondansetron HCl 4 mg 10/01/23 13:16 10/01/23 14:25 Ondansetron Odt 4 Mg Tab.Rapdis TRANSLINGU 10/01/23 13:17 4 mg ONCE ONE Administration Medical Decision Making Medical Decision Making MDM Narrative: This is a 82-year-old female, with a history of anxiety, hypertension, and aortic stenosis with recent valve replacement on August 29, presenting to the emergency department complaints of dysuria, urinary urgency and suprapubic discomfort x 3 days. On arrival, all VSS. Pt is well appearing in no acute distress. Pt has soft abdomen with no rebound or guarding. DDX including acute cystitis, UTI, pylenonephritis. Less likely appendicitis, nephrolithiasis. Pt also reporting slight cough, with no chest pain. CXR and viral swabs ordered Differential Diagnosis Differential Diagnoses: The differential diagnosis associated with the presentation includes see above Admission/Observation Consideration of admission/observation: Escalation of care including admission/observation considered Patient would have been admitted to the hospital had her work up had any findings where hospital admission was appropriate and her clinical presentation warranted hospital admission. Lab Data MDM Lab Attestation statement: I reviewed the patient's lab results. Mild leukopenia with normocystic anemia noted. CHEM WNL. 10/01/23 10:37 10/01/23 10:37 Labs: Lab Results 10/01/23 10/01/23 Range/Units 10:37 14:24 WBC 3.4 L (4.8-10.8) X10*3/uL RBC 3.21 L (4.20-5.50) X10*6/uL Hgb 9.5 L (12.0-16.0) g/dl Hct 29.9 L (37.0-47.0) % MCV 93.1 (80.0-98.0) fL MCH 29.6 (27.0-33.0) pg MCHC 31.8 (31.0-35.0) g/dl RDW 14.1 (11.0-16.0) % Plt Count 104 L (160-400) X10*3/uL MPV 11.8 (9.4-12.3) fL Immature Gran % (Auto) 0.3 (0.0-0.4) % Neut % (Auto) 65.4 (45-73) % Lymph % (Auto) 20.8 (20-40) % [place] % (Auto) 6.7 (2-11) % Eos % (Auto) 5.9 H (0-4) % Baso % (Auto) 0.9 (0-2) % Lymph # (Auto) 0.7 L (1.2-4.9) X10*3/uL [place] # (Auto) 0.2 (0.1-1.2) X10*3/uL Eos # (Auto) 0.2 (0.0-0.4) X10*3/uL Baso # (Auto) 0.0 (0.0-0.2) X10*3/uL Abs Immat Gran (auto) 0.01 (0.00-0.03) X10*3/uL Absolute Neuts (auto) 2.2 (2.0-8.3) x10*3/uL Absolute Nucleated RBC 0.000 (0.0-0.012) X10*3/uL Nucleated RBC % (auto) 0.0 (0.0-0.2) /100WBC Sodium 141 (135-145) mmol/L Potassium 4.3 (3.3-5.1) mmol/L Chloride 103 (96-108) mmol/L Carbon Dioxide 29 (22-29) mmol/L Anion Gap 13 (12-20) BUN 18 H (9-16) mg/dL Creatinine 0.87 (0.5-1.4) mg/dL Estim Creat Clear Calc 52.7 Estimated GFR > 60 Random Glucose 91 (60-115) mg/dL Calcium 9.8 (8.4-10.2) mg/dL Total Bilirubin 0.4 (0.0-1.0) mg/dL Direct Bilirubin 0.2 (0.0-0.5) mg/dL AST 20 (5-31) U/L ALT 18 (0-31) U/L Alkaline Phosphatase 103 (39-117) U/L Total Protein 6.9 (6.5-8.0) g/dL Albumin 3.9 (3.5-5.0) g/dL Lipase 22 (8-78) U/L Urine Color Yellow Urine Appearance Clear Urine pH 5.5 (5.0-9.0) Ur Specific [place] 1.010 (1.005-1.025) Urine Protein Negative (Neg-Trace) mg/dL Urine Glucose (UA) Negative (Negative) mg/dL Urine Ketones Negative (Negative) mg/dL Urine Blood Negative (Negative) Urine Nitrite Negative (Negative) Ur Leukocyte Esterase Trace H (Negative) Urine RBC 0-2 (0-2) /HPF Urine WBC 0-5 (0-5) /HPF Ur Squamous Epith Cells 0-2 (0-2) /HPF Urine Bacteria None Seen (None Seen) Hyaline Casts 0-2 (0-2) /LPF COVID-19 (MANDI) Negative (Negative) COVID-19 Clin Com See Note Influenza Type A (PORTILLO) Negative (Negative) Influenza Type B (PORTILLO) Negative (Negative) Influenza A & B Note See Note Radiology Impression Discussion of test interpretation with radiology: I have reviewed the radiologist's reading. Radiologist Impression: EXAMINATION: XR CHEST 2 VIEWS CLINICAL INFORMATION: Cough. COMPARISON: Chest radiographs dated 08/09/2003; CT chest dated 06/14/2022. TECHNIQUE: Frontal and lateral views of the chest were obtained. FINDINGS: The heart, great vessels, pulmonary vasculature and mediastinum are stable. No congestive heart failure is seen. There is a stable ectasia of the aortic arch, with atherosclerotic calcifications. The lungs show no focal infiltrate, effusion or pneumothorax. There is mild biapical pleural and parenchymal scarring. There is no acute osseous abnormality. XR/XR chest 2V IMPRESSION: No active cardiopulmonary disease. Dictated By: Hi Lowery MD Discharge Plan Discharge Clinical Impression: Dysuria Patient Disposition: Home, Self-Care Instructions: Dysuria (ED) Additional Instructions: You were seen in the emergency department after having pain with urination. Your urine appears to be slightly contaminated/ We are testing a urine for further analysis, we will call you if you have a urinary tract infection. Your chest x-ray was normal. You tested negative for COVID and flu. Please take full course even if you are feeling better. Drink plenty of fluids and get plenty of rest. If any new or worsening symptoms occur including but not limited to chest pain, shortness of breath, worsening pain with urination, fever, chills, please return for re-evaluation. Prescriptions: No Action cyanocobalamin (vitamin B-12) [Vitamin B-12] 1,000 mcg tablet 1,000 mcg PO DAILY Qty: 30 3RF fluticasone propionate 50 mcg/actuation spray,suspension 2 spray intranasal DAILY Qty: 16 0RF citalopram 10 mg tablet 10 mg PO BEDTIME ondansetron HCl 4 mg tablet 4 mg PO Q8H PRN (Reason: Nausea) alprazolam 0.25 mg tablet 0.25 mg PO BID PRN (Reason: Anxiety) acetaminophen 500 mg Tablet 1,000 mg PO Q6H PRN (Reason: Pain) hydroxyzine HCl 25 mg tablet 25 mg PO TID PRN (Reason: itching) Qty: 10 0RF aspirin 81 mg tablet,delayed release (DR/EC) 81 mg PO DAILY docusate sodium 100 mg capsule 100 mg PO BID clopidogrel 75 mg tablet 75 mg PO DAILY Interventions: ED Discharge Assessment Last Done: 10/01/23 16:47 Discharge Date/Time: 10/01/23 16:47
[2023-10-01] MEDS: Ondansetron ODT 4 MG TAB.RAPDIS TRANSLINGU (14:25)
[2023-10-01 14:56] LABS: COVID-19 Test Negative (Negative); IDNOW Serial# 08D9AD1C; IDNOW Serial# 152EDE1D
[2023-10-01 14:57] LABS: Influenza A Negative (Negative); Influenza B2 Negative (Negative)
[2023-10-01 15:31] VITALS: BP 145/77; PULSE 87; RESP 16; TEMP 36.7; O2SAT 97
--- NOTE | 2023-10-01 15:32 | MHC.EDTECH ---
This pct just assumed care of Pt at 1500 ,vitals taken ,pt was hungry ,Pt was given cheese stick ,Pudding and Grham crackers for snack .
--- NOTE | 2023-10-01 16:25 | PC.NURSE ---
called pt son Hi Henley- will come pick pt up from department
== END 2023-10-01 16:47 | disposition home or self-care (01) ==
PROVIDERS: Physician Assistant Medical; Emergency Provider Emergency Medicine; PCP Physician Assistant
DX: N39.0 Urinary tract infection, site not specified (principal); R30.0 Dysuria; R11.2 Nausea with vomiting, unspecified; R05.9 Cough, unspecified; Z11.52 Encounter for screening for COVID-19; Z87.891 Personal history of nicotine dependence; Z79.899 Other long term (current) drug therapy
CPT/HCPCS: 36415; 71046; 80048; 80076; 81001; 83690; 85025; 87502; 87635; 99283; 99284

== ENCOUNTER 2023-10-04 16:15 | Emergency (ER) | payer MEDICARE, OTHER, SELFPAY ==
--- NOTE | ~2023-10-04 | XR_ITS ---
EXAMINATION: XR CHEST CLINICAL INFORMATION: Chest pain COMPARISON: Prior chest radiograph dated 10/01/2023 TECHNIQUE: Frontal view of the chest was obtained. FINDINGS: Lungs hyperaerated but grossly clear. Old right-sided rib fractures noted. Heart size normal with normal caliber pulmonary vessels. XR/XR chest 1V IMPRESSION: No active disease. No change from the prior study.
--- NOTE | 2023-10-04 16:18 | ECG_ITS ---
Test Reason : CP Blood Pressure : / mmHG Vent. Rate : 093 BPM Atrial Rate : 093 BPM P-R Int : 200 ms QRS Dur : 080 ms QT Int : 370 ms P-R-T Axes : 048 -05 032 degrees QTc Int : 460 ms Sinus rhythm with Premature ventricular complexes Septal infarct (cited on or before 04-OCT-2023) Abnormal ECG When compared with ECG of 09-AUG-2023 09:43, Premature ventricular complexes is now Present Referred By: Juvencio Queen Electronically Signed By:MICHEL CHARLES MD
[2023-10-04 16:42] VITALS: BP 134/80; PULSE 90; RESP 16; TEMP 36.8; O2SAT 98; BMI 27.9
[2023-10-04 16:49] LABS: MANUAL DIFF FLAG NO
[2023-10-04 16:53] LABS: Basophils Percent Auto 0.4 % (0-2); Eosinophils Absolute Auto 0.2 X10*3/uL (0.0-0.4); Eosinophils Percent Auto 3.3 % (0-4); Hematocrit 30.3 % (37.0-47.0); Hemoglobin 9.6 g/dl (12.0-16.0); Imm Gran Abs Auto 0.01 X10*3/uL (0.00-0.03); Imm Gran Pct Auto 0.2 % (0.0-0.4); Lymphocytes Absolute Auto 0.8 X10*3/uL (1.2-4.9); Lymphocytes Percent Auto 17.6 % (20-40); Mean Corpuscular HGB Conc 31.7 g/dl (31.0-35.0); Mean Corpuscular Hemoglobin 29.4 pg (27.0-33.0); Mean Corpuscular Volume 92.9 fL (80.0-98.0); Mean Platelet Volume 10.9 fL (9.4-12.3); Monocytes Absolute Auto 0.3 X10*3/uL (0.1-1.2); Neutrophils Absolute Auto 3.2 x10*3/uL (2.0-8.3); Neutrophils Percent Auto 71.5 % (45-73); Platelet Count 118 X10*3/uL (160-400); Red Blood Count 3.26 X10*6/uL (4.20-5.50); Red Cell Distribution Width 13.9 % (11.0-16.0); White Blood Count 4.5 X10*3/uL (4.8-10.8)
--- NOTE | 2023-10-04 16:56 | ED_ITS ---
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 She reports that she has been forgetful since her surgery and stroke and that she recently returned home from rehab. On interview, patient reports that she is ?exhausted? as she spent 6 hours in the waiting room prior to being roomed. Patient reports that she no longer feels numbness or tingling in the fingers and states that she has a history of anxiety and takes alprazolam for symptoms. She also reports that she feels as if she has indigestion feels as if she needs to ?burp? which would make her feel better. She denies any shortness of breath, chest pain, abdominal pain, nausea, vomiting, diarrhea, constipation, dizziness, lightheadedness, recent falls or trauma, or change in gait or range of motion. Patient's son, Hi, was contacted regarding patient's visit here to the emergency department. Per patient's son she was complaining of midsternal chest pain as well as numbness and tingling to the right hand. Hi reports that she contacted her primary care provider who recommended that she come to the emergency department for evaluation. He reports that his mother is being followed by speech, occupational, and physical therapy for treatment of her recent CVA. He states that she has also been started on Plavix after her TAVR and that he is living with her to help care for her. He states that she has been home from rehab for roughly 8 days and seems to be forgetful. He has been assured that this is a result of her recent surgery, the anesthesia provided, as well as CVA. He reports that she had a workup, here at [facility], on 10/01/2023 with no evidence of urinary tract infection or other acute changes to patient's blood work. An echocardiogram was completed on 09/25/2023 showing an EF of 68%. Pertinent positives and negatives discussed in HPI Related Data Home Medications Medication Instructions Recorded Confirmed acetaminophen 500 mg tablet 1,000 mg PO Q6H PRN Pain 03/28/23 10/03/23 alprazolam 0.25 mg tablet 0.25 mg PO BID PRN Anxiety 03/28/23 10/03/23 citalopram 10 mg tablet 10 mg PO BEDTIME 03/28/23 10/03/23 ondansetron HCl 4 mg tablet 4 mg PO Q8H PRN Nausea 03/28/23 10/03/23 aspirin 81 mg tablet,delayed 81 mg PO DAILY 09/27/23 10/03/23 release clopidogrel 75 mg tablet 75 mg PO DAILY 09/27/23 10/03/23 docusate sodium 100 mg capsule 100 mg PO BID 09/27/23 10/03/23 Previous Rx's Medication Instructions Recorded cyanocobalamin (vitamin B-12) 1,000 mcg PO DAILY #30 tabs 05/22/23 1,000 mcg tablet (Vitamin B-12) hydroxyzine HCl 25 mg tablet 25 mg PO TID PRN itching #10 tabs 07/21/23 fluticasone propionate 50 2 spray intranasal DAILY #16 grams 08/14/23 mcg/actuation nasal spray,suspension famotidine 20 mg tablet 20 mg PO DAILY 30 days #30 tabs 10/04/23 Allergies Allergy/AdvReac Type Severity Reaction Status Date / Time buspirone Allergy Intermediate Rash Verified 10/01/23 10:15 Sulfa (Sulfonamide Allergy Intermediate RASH Verified 10/01/23 10:15 Antibiotics) amoxicillin [From AUGMENTIN] Allergy Unknown PER H&P Verified 09/27/23 14:33 clavulanic acid Allergy Unknown PER H&P Verified 10/01/23 10:15 [From AUGMENTIN] garlic [GARLIC] Allergy Unknown PER H&P Verified 10/01/23 10:15 metronidazole [From FLAGYL] Allergy Unknown OCULAR Verified 10/01/23 10:15 MIGRAINES penicillamine Allergy Unknown Unknown Verified 10/01/23 10:15 ciprofloxacin AdvReac Intermediate neuropathic Verified 10/01/23 10:15 pain lisinopril AdvReac Intermediate Cough Verified 10/01/23 10:15 nitrofurantoin AdvReac Mild GI side Verified 10/01/23 10:15 effects cefuroxime Allergy Intermediate wheezy Uncoded 09/27/23 14:33 cough/itch environmental Allergy Unknown Unknown Uncoded 09/27/23 14:33 flagyl Allergy Unknown Unknown Uncoded 09/27/23 14:33 From KEFLEX Allergy Unknown RASH Uncoded 09/27/23 14:33 Metoprolol Tartrate Allergy Unknown Unknown Uncoded 09/27/23 14:33 Sulfacet-R Allergy Unknown Unknown Uncoded 09/27/23 14:33 Review of Systems 2 Review of Systems: Yes all other systems are reviewed and are negative [facility] Past Medical History Medical History (Updated 10/05/23 @ 00:27 by Lyla Goodson NP) Anxiety Breast cancer screening Breast pain, left Elevated vitamin B12 level Neck muscle spasm Strain of neck muscle Low back pain Pubic ramus fracture Sore throat Skin tear of upper arm without complication Head injury, acute, without loss of consciousness Fall Dizziness LLQ abdominal pain Medication noncompliance due to cognitive impairment RLQ abdominal pain Sinusitis Flu syndrome Precordial chest pain Atypical chest pain Cold intolerance Former smoker Pulmonary nodule Abnormal lung sounds Fever Constipation Bilateral calf pain Nausea Left lower quadrant abdominal pain Dysuria Fatigue Heart palpitations Lower extremity weakness HTN (hypertension) Aortic stenosis Obstipation Dark stools Lower abdominal pain Gastroenteritis Neck pain on right side URI (upper respiratory infection) Back pain Cough Chest pain Rhinitis Elevated BP without diagnosis of hypertension Non-rheumatic aortic stenosis Diverticulitis GERD (gastroesophageal reflux disease) Cat scratch Cat bite Epigastric discomfort Diarrhea Nausea Viral syndrome GERD (gastroesophageal reflux disease) Neuropathy Arthritis GERD (gastroesophageal reflux disease) HTN (hypertension) Irritable bowel Heart murmur Surgical History (Updated 10/03/23 @ 16:09 by ROMAINE Briseno) S/P TAVR (transcatheter aortic valve replacement) Hx of esophagogastroduodenoscopy Hx of colonoscopy History of tonsillectomy History of appendectomy Family History Family History Father No problems noted. Mother No problems noted. Social History Social History Household Members: Children Housing: House Are you a primary certified social workers in health care to a significant other at home: No Do you presently have visiting nurse or other home services: No Alcohol intake: never Patient Tobacco Use Status: Former Tobacco user Quit Date: 2013 Tobacco use type: Cigarette e-Cigarette/Vaping Use: Never Used Second Hand Smoke Exposure: No Advance Directives Date on File: 03/28/23 service: No Current occupational status: retired Cognitive needs: No Hearing needs: No Vision needs: Yes (glasses) Physical Exam 2 Vital Signs: Vital Signs: Last Vital Signs Temp 97.8 F 10/05/23 00:39 Pulse 90 10/05/23 00:39 Resp 14 10/05/23 00:39 BP 159/69 H 10/05/23 00:39 Pulse Ox 97 10/05/23 00:39 O2 Del Method Room Air 10/05/23 00:39 BMI result Body Mass Index 27.9 Nursing notes and vital signs reviewed. GENERAL APPEARANCE: A&0 x 4, generally well appearing, no acute distress HENMT: Normal to inspection, atraumatic, face symmetrical. Normal external ears, nose, and oropharynx clear. EYE: PERRLA, EOM intact, structures appear normal NECK: Supple without lymphadenopathy. No stiffness or restricted ROM. CHEST: Normal to inspection HEART: Normal rate and regular rhythm, normal S1/S2, no M/R/G LUNGS: LS CTA, moving air well. Able to speak in complete sentences. No crackles, wheezes, or rhonchi auscultated ABDOMEN: Soft, nontender, nondistended. Normal bowel sounds noted BACK: No CVAT, no obvious deformity EXTREMITIES: Moving all extremities without difficulty. No cyanosis, clubbing, or edema. Normal capillary refill. NEUROLOGICAL: Alert and oriented, moving all 4 extremities with equal strength. CN not formally tested but appearing grossly intact. Observed to ambulate with normal gait. Patient answering questions appropriately but does appear forgetful SKIN: Warm and dry without any lesions, rash, or visible sores PSYCH: Cooperative, normal affect, normal thought process Course Course Course Narrative: RME: 82-year-old female presents ED for chest pain. patient denies any confusion. patient states just chronic forgetfullness due to age. patient is anxious. Patient denies any neuro symptoms. NIH score is zero. Patient is A0x3. Cardiac workup ordered. Medications Administered Discontinued Medications Generic Name Dose Route Start Last Admin Trade Name Freq PRN Reason Stop Dose Admin Al Hydroxide/Mg Hydroxide 30 ml 10/04/23 23:30 10/05/23 00:09 Magnesium Hydrox/Alum Hydrox 30 Ml Oral.Susp PO 10/04/23 23:31 30 ml ONCE ONE Administration Medical Decision Making Medical Decision Making [facility] Narrative: Old records reviewed for previous imaging, lab studies, ECGs, and notes. Echocardiogram from 09/25/2023 reviewed in addition to previous workup from 10/01/23. Patient was assessed in the emergency department with no acute distress or toxicity noted. Blood work essentially unchanged from 10/01 showing no leukocytosis, stable anemia, electrolyte imbalance, or kidney dysfunction. Troponins within normal limits at 6.4 and 7.2. Heart score is 3 indicating low risk for ACS. EKG was completed, which I have independently interpreted no sinus rhythm at 93 beats per minute with no signs of acute ischemia. PACs and PVCs noted. Case was discussed with ED attending, Dr Combs, with no additional recommendations made. Maalox was given with good relief of heartburn symptoms. Patient's symptoms are most likely due to acid reflux as well as numbness due to patient's anxiety. There is low suspicion at this time for ACS, PE, CVA, COPD, or significant fluid overload. 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 Patient is safe for discharge at this time with plan for [id number] Tylenol for fever/discomfort with dosing as per packaging. HPI, PE, diagnostics, and plan discussed with patient and family with no unanswered questions at this time. Strict return precautions given to return to the emergency department with new, worsening, or concerning emergent symptoms. Recommended to follow-up with there primary care provider in 24-48 hours for further treatment and management. Differential Diagnosis Differential Diagnoses: The differential diagnosis associated with the presentation includes But not limited to ACS, CVA, UTI, COPD exacerbation Lab Data 10/04/23 16:43 10/04/23 16:42 Labs: Lab Results 10/04/23 10/04/23 10/04/23 Range/Units 16:42 16:43 22:04 WBC 4.5 L (4.8-10.8) X10*3/uL RBC 3.26 L (4.20-5.50) X10*6/uL Hgb 9.6 L (12.0-16.0) g/dl Hct 30.3 L (37.0-47.0) % MCV 92.9 (80.0-98.0) fL MCH 29.4 (27.0-33.0) pg MCHC 31.7 (31.0-35.0) g/dl RDW 13.9 (11.0-16.0) % Plt Count 118 L (160-400) X10*3/uL MPV 10.9 (9.4-12.3) fL Immature Gran % (Auto) 0.2 (0.0-0.4) % Neut % (Auto) 71.5 (45-73) % Lymph % (Auto) 17.6 L (20-40) % [place] % (Auto) 7.0 (2-11) % Eos % (Auto) 3.3 (0-4) % Baso % (Auto) 0.4 (0-2) % Lymph # (Auto) 0.8 L (1.2-4.9) X10*3/uL [place] # (Auto) 0.3 (0.1-1.2) X10*3/uL Eos # (Auto) 0.2 (0.0-0.4) X10*3/uL Baso # (Auto) 0.0 (0.0-0.2) X10*3/uL Abs Immat Gran (auto) 0.01 (0.00-0.03) X10*3/uL Absolute Neuts (auto) 3.2 (2.0-8.3) x10*3/uL Absolute Nucleated RBC 0.000 (0.0-0.012) X10*3/uL Nucleated RBC % (auto) 0.0 (0.0-0.2) /100WBC PT 12.0 (11.1-13.3) SEC INR 1.0 (0.9-1.1) APTT 40.4 H (26.0-36.8) SEC Sodium 141 (135-145) mmol/L Potassium 4.1 (3.3-5.1) mmol/L Chloride 103 (96-108) mmol/L Carbon Dioxide 30 H (22-29) mmol/L Anion Gap 12 (12-20) BUN 16 (9-16) mg/dL Creatinine 0.91 (0.5-1.4) mg/dL Estim Creat Clear Calc 50.3 Estimated GFR 59 Random Glucose 93 (60-115) mg/dL Calcium 10.1 (8.4-10.2) mg/dL Total Bilirubin 0.5 (0.0-1.0) mg/dL AST 22 (5-31) U/L ALT 16 (0-31) U/L Alkaline Phosphatase 102 (39-117) U/L Troponin I High Sens 6.4 7.2 (<3.5-17.0) ng/L B-Natriuretic Peptide 286 H (<100) pg/mL Total Protein 7.4 (6.5-8.0) g/dL Albumin 4.3 (3.5-5.0) g/dL Scores Heart Score History: -0- slightly suspicious ECG: -0- normal Age: -2- > or = 65 Risk factory: -1- 1 or 2 risk factors Troponin: -0- < or = normal limit Score: 3 Risk: 1.7% Discharge Plan Discharge Clinical Impression: Acid reflux, Anxiety Patient Disposition: Home, Self-Care Instructions: Indigestion (ED), Anxiety (ED) Prescriptions: No Action cyanocobalamin (vitamin B-12) [Vitamin B-12] 1,000 mcg tablet 1,000 mcg PO DAILY Qty: 30 3RF fluticasone propionate 50 mcg/actuation spray,suspension 2 spray intranasal DAILY Qty: 16 0RF famotidine 20 mg tablet 20 mg PO DAILY 30 Days Qty: 30 0RF citalopram 10 mg tablet 10 mg PO BEDTIME ondansetron HCl 4 mg tablet 4 mg PO Q8H PRN (Reason: Nausea) alprazolam 0.25 mg tablet 0.25 mg PO BID PRN (Reason: Anxiety) acetaminophen 500 mg Tablet 1,000 mg PO Q6H PRN (Reason: Pain) hydroxyzine HCl 25 mg tablet 25 mg PO TID PRN (Reason: itching) Qty: 10 0RF aspirin 81 mg tablet,delayed release (DR/EC) 81 mg PO DAILY docusate sodium 100 mg capsule 100 mg PO BID clopidogrel 75 mg tablet 75 mg PO DAILY Referrals: Nick Gomez PA-C [Primary Care Provider] - Discharge Date/Time: 10/05/23 01:19 Print Language: [place]uran
[2023-10-04 16:58] LABS: Partial Thromboplastin Time 40.4 SEC (26.0-36.8)
[2023-10-04 17:04] LABS: Alanine Aminotransferase 16 U/L (0-31); Albumin Level 4.3 g/dL (3.5-5.0); Alkaline Phosphatase 102 U/L (39-117); Anion Gap 12 (12-20); Aspartate Amino Transferase 22 U/L (5-31); Bilirubin Total 0.5 mg/dL (0.0-1.0); Blood Urea Nitrogen 16 mg/dL (9-16); Calcium 10.1 mg/dL (8.4-10.2); Carbon Dioxide 30 mmol/L (22-29); Chloride 103 mmol/L (96-108); Creatinine Clr Calc Pharmacy 50.3; Estimated Glomerular Filt Rate 59; Glucose Random 93 mg/dL (60-115); Potassium 4.1 mmol/L (3.3-5.1); Sodium 141 mmol/L (135-145); Total Protein 7.4 g/dL (6.5-8.0)
[2023-10-04 17:09] LABS: B Type Natriuretic Peptide 286 pg/mL (<100)
[2023-10-04 17:10] LABS: Troponin-I High Sensitivity 6.4 ng/L (<3.5-17.0)
[2023-10-04 22:28] LABS: Troponin-I High Sensitivity 7.2 ng/L (<3.5-17.0)
[2023-10-04 22:44] VITALS: BP 137/65; PULSE 97; RESP 18; TEMP 36.4; O2SAT 96
[2023-10-04 23:11] VITALS: BP 143/73; PULSE 55; RESP 14; TEMP 36.7; O2SAT 94
[2023-10-05] MEDS: Magnesium Hydrox/Alum Hydrox 30 ML ORAL.SUSP PO (00:09)
[2023-10-05 00:39] VITALS: BP 159/69; PULSE 90; RESP 14; TEMP 36.6; O2SAT 97
--- NOTE | 2023-10-05 00:57 | PC.NURSE ---
Pt discharged and noted to fall outside the building. Pt brought back inside the ED and examined by MLP. Pt reports tripping over her own feet and feeling weak due to not eating any food today. Pt reports no pain at this time. No injuries noted. Food and drink provided. VSS
--- NOTE | 2023-10-05 01:18 | PC.NURSE ---
Pt aox4 resting at the bedside. Reports no pain at this time. Son is here to take pt home. Pt declines wheelchair and prefers to walk outside. Ambulatory with steady gait at discharge.
== END 2023-10-05 01:19 | disposition home or self-care (01) ==
PROVIDERS: Physician Assistant; Emergency Provider Internal Medicine; PCP Physician Assistant
DX: K21.9 Gastro-esophageal reflux disease without esophagitis (principal); F41.9 Anxiety disorder, unspecified; Z95.2 Presence of prosthetic heart valve; Z86.73 Personal history of transient ischemic attack (TIA), and cerebral infarction without residual deficits; Z79.82 Long term (current) use of aspirin; Z79.899 Other long term (current) drug therapy; Z79.01 Long term (current) use of anticoagulants
CPT/HCPCS: 36415; 71045; 80053; 83880; 84484; 85025; 85610; 85730; 93005; 99284

== ENCOUNTER → 2023-10-04 16:18 | Outpatient (BNV) | payer MEDICARE, OTHER, SELFPAY | PROVIDERS: Emergency Provider Internal Medicine; PCP Physician Assistant; Visit Provider Internal Medicine Cardiovascular Disease | DX: R07.9 Chest pain, unspecified (principal) | CPT/HCPCS: 93010 ==

== ENCOUNTER 2023-10-07 13:09 | Emergency (ER) | payer MEDICARE, OTHER, SELFPAY ==
--- NOTE | ~2023-10-07 | CT_ITS ---
EXAMINATION: CT ABDOMEN AND PELVIS WITH CONTRAST CLINICAL INFORMATION: Left lower quadrant pain. Diverticulitis. COMPARISON: Most recent CT abdomen/pelvis dated 07/07/2023. TECHNIQUE: Multidetector volumetric images were obtained from the superior aspect of the liver through the pubic symphysis following administration 85 mL of Omnipaque 350 intravenous contrast. Sagittal and coronal reformatted images were obtained on the technologist's workstation. Oral contrast: No This CT examination was performed using dose optimization techniques as appropriate, variously including the following: *Automated exposure control *Adjustment of mA and/or kV according to patient size (this includes techniques or standardized protocols for targeted exams where dose is matched to indication/reason for exam; i.e. extremities or head) *Use of iterative reconstruction technique DLP: 616 mGy-cm FINDINGS: LUNG BASES: The visualized lung bases are unremarkable. LIVER, GALLBLADDER, AND BILIARY TREE: The liver is normal in size, shape, and attenuation. Stable right hepatic simple cysts. No new focal hepatic lesion or biliary ductal dilatation is present. The gallbladder is unremarkable with no evidence of radiopaque gallstones, gallbladder wall thickening, or obvious pericholecystic inflammatory changes. PANCREAS: Unremarkable. SPLEEN: Unremarkable. ADRENAL GLANDS: Unremarkable. KIDNEYS AND URETERS: The kidneys are normal in size, shape, and attenuation. Left upper pole 0.5 cm renal stone located approximately 11.5 cm from the posterior axillary line, unchanged. Additional mid/lower pole 0.2 cm stone, unchanged. No ureteral stone. No right-sided renal or ureteral stone. No hydronephrosis or hydroureter. No perinephric stranding. BLADDER: Unremarkable. GASTROINTESTINAL TRACT: The large and small bowel are largely nondistended. No small or large bowel obstruction. Redemonstration of sigmoid diverticulosis. There is mild diffuse sigmoid wall thickening which is new when compared to the prior CT, with minimal if any adjacent stranding. Findings could represent very early diverticulitis. No extraluminal air or organized fluid collection to suggest perforation or abscess formation. PERITONEAL CAVITY: No intra-abdominal free air or free fluid. ABDOMINAL WALL: No significant hernia is appreciated. LYMPH NODES: No significant lymphadenopathy. VASCULAR: Dilatation of the infrarenal abdominal aorta measuring up to 2.1 x 3.2 cm, unchanged when compared to the prior examination. Scattered atherosclerotic calcifications. PELVIC VISCERA: The uterus appears atrophic. OSSEOUS STRUCTURES: Chronic left superior and inferior pubic ramus fractures with minimal inferior osseous bridging, unchanged when compared to the prior examination. No acute fracture. No concerning lytic or blastic osseous lesion. CT/CT abdomen pelvis w IV con IMPRESSION: 1. Sigmoid diverticulosis with mild diffuse sigmoid wall thickening and minimal if any adjacent stranding. Findings could represent very early diverticulitis in the appropriate clinical setting. No evidence of perforation or abscess formation. 2. Stable left-sided renal stones. No hydronephrosis or hydroureter. 3. Stable dilatation of the infrarenal abdominal aorta measuring up to 3.2 cm. Follow-up imaging recommended every 3 years as stated on the prior report. 4. Chronic left superior and inferior pubic ramus fractures with minimal inferior osseous bridging, unchanged when compared to the prior examination. Fleischner guidelines were followed.
[2023-10-07 14:00] VITALS: BP 152/100; BP 176/73; PULSE 83; PULSE 99; RESP 16; TEMP 36.7; O2SAT 94; BMI 28.2
--- NOTE | 2023-10-07 14:36 | ECG_ITS ---
Test Reason : SUDDEN ONSET CP Blood Pressure : / mmHG Vent. Rate : 079 BPM Atrial Rate : 079 BPM P-R Int : 228 ms QRS Dur : 088 ms QT Int : 388 ms P-R-T Axes : 052 -08 022 degrees QTc Int : 444 ms Sinus rhythm with 1st degree A-V block with Premature supraventricular complexes Otherwise normal ECG When compared with ECG of 04-OCT-2023 16:23, Premature ventricular complexes are no longer Present Premature supraventricular complexes are now Present Referred By: Generic ED Physician Electronically Signed By:MICHEL CHARLES MD
[2023-10-07 14:48] LABS: MANUAL DIFF FLAG NO
[2023-10-07 14:55] LABS: Basophils Percent Auto 0.6 % (0-2); Eosinophils Absolute Auto 0.1 X10*3/uL (0.0-0.4); Eosinophils Percent Auto 3.2 % (0-4); Hematocrit 28.6 % (37.0-47.0); Hemoglobin 9.2 g/dl (12.0-16.0); Imm Gran Abs Auto 0.01 X10*3/uL (0.00-0.03); Imm Gran Pct Auto 0.3 % (0.0-0.4); Lymphocytes Absolute Auto 0.5 X10*3/uL (1.2-4.9); Lymphocytes Percent Auto 14.5 % (20-40); Mean Corpuscular HGB Conc 32.2 g/dl (31.0-35.0); Mean Corpuscular Hemoglobin 29.4 pg (27.0-33.0); Mean Corpuscular Volume 91.4 fL (80.0-98.0); Monocytes Absolute Auto 0.2 X10*3/uL (0.1-1.2); Monocytes Percent Auto 6.9 % (2-11); Neutrophils Absolute Auto 2.4 x10*3/uL (2.0-8.3); Neutrophils Percent Auto 74.5 % (45-73); Platelet Count 119 X10*3/uL (160-400); Red Blood Count 3.13 X10*6/uL (4.20-5.50); White Blood Count 3.2 X10*3/uL (4.8-10.8)
[2023-10-07 15:04] LABS: Alanine Aminotransferase 14 U/L (0-31); Albumin Level 3.9 g/dL (3.5-5.0); Alkaline Phosphatase 94 U/L (39-117); Anion Gap 12 (12-20); Aspartate Amino Transferase 19 U/L (5-31); Bilirubin Direct 0.2 mg/dL (0.0-0.5); Bilirubin Total 0.5 mg/dL (0.0-1.0); Blood Urea Nitrogen 14 mg/dL (9-16); Calcium 9.5 mg/dL (8.4-10.2); Carbon Dioxide 29 mmol/L (22-29); Chloride 105 mmol/L (96-108); Creatinine Clr Calc Pharmacy 53.6; Estimated Glomerular Filt Rate > 60; Glucose Random 93 mg/dL (60-115); Lipase 14 U/L (8-78); Magnesium 2.1 mg/dL (1.6-2.6); Potassium 4.6 mmol/L (3.3-5.1); Sodium 141 mmol/L (135-145); Total Protein 6.7 g/dL (6.5-8.0)
--- NOTE | 2023-10-07 15:16 | ED.ABDPAIN ---
HPI - Abdominal Pain General Chief Complaint: Abdominal Pain Stated Complaint: abd pain Time Seen by Provider: 10/07/23 14:57 Source: patient Mode of arrival: EMS History of Present Illness HPI narrative: 82-year-old female who arrives via EMS with left-sided abdominal discomfort that she reports is stabbing in nature with radiation into the left hip. Patient also reports some weakness is been seen here twice last week. Related Data Home Medications Medication Instructions Recorded Confirmed acetaminophen 500 mg tablet 1,000 mg PO Q6H PRN Pain 03/28/23 10/03/23 alprazolam 0.25 mg tablet 0.25 mg PO BID PRN Anxiety 03/28/23 10/03/23 citalopram 10 mg tablet 10 mg PO BEDTIME 03/28/23 10/03/23 ondansetron HCl 4 mg tablet 4 mg PO Q8H PRN Nausea 03/28/23 10/03/23 aspirin 81 mg tablet,delayed 81 mg PO DAILY 09/27/23 10/03/23 release clopidogrel 75 mg tablet 75 mg PO DAILY 09/27/23 10/03/23 docusate sodium 100 mg capsule 100 mg PO BID 09/27/23 10/03/23 Previous Rx's Medication Instructions Recorded cyanocobalamin (vitamin B-12) 1,000 mcg PO DAILY #30 tabs 05/22/23 1,000 mcg tablet (Vitamin B-12) hydroxyzine HCl 25 mg tablet 25 mg PO TID PRN itching #10 tabs 07/21/23 fluticasone propionate 50 2 spray intranasal DAILY #16 grams 08/14/23 mcg/actuation nasal spray,suspension famotidine 20 mg tablet 20 mg PO DAILY 30 days #30 tabs 10/04/23 Allergies Allergy/AdvReac Type Severity Reaction Status Date / Time buspirone Allergy Intermediate Rash Verified 10/01/23 10:15 Sulfa (Sulfonamide Allergy Intermediate RASH Verified 10/01/23 10:15 Antibiotics) amoxicillin [From AUGMENTIN] Allergy Unknown PER H&P Verified 09/27/23 14:33 clavulanic acid Allergy Unknown PER H&P Verified 10/01/23 10:15 [From AUGMENTIN] garlic [GARLIC] Allergy Unknown PER H&P Verified 10/01/23 10:15 metronidazole [From FLAGYL] Allergy Unknown OCULAR Verified 10/01/23 10:15 MIGRAINES penicillamine Allergy Unknown Unknown Verified 10/01/23 10:15 ciprofloxacin AdvReac Intermediate neuropathic Verified 10/01/23 10:15 pain lisinopril AdvReac Intermediate Cough Verified 10/01/23 10:15 nitrofurantoin AdvReac Mild GI side Verified 10/01/23 10:15 effects cefuroxime Allergy Intermediate wheezy Uncoded 09/27/23 14:33 cough/itch environmental Allergy Unknown Unknown Uncoded 09/27/23 14:33 flagyl Allergy Unknown Unknown Uncoded 09/27/23 14:33 From KEFLEX Allergy Unknown RASH Uncoded 09/27/23 14:33 Metoprolol Tartrate Allergy Unknown Unknown Uncoded 09/27/23 14:33 Sulfacet-R Allergy Unknown Unknown Uncoded 09/27/23 14:33 Review of Systems Review of Systems Pertinent positives and negatives as stated in HPI [facility] Past Medical History Source: nursing notes reviewed Medical History Anxiety Breast cancer screening Breast pain, left Elevated vitamin B12 level Neck muscle spasm Strain of neck muscle Low back pain Pubic ramus fracture Sore throat Skin tear of upper arm without complication Head injury, acute, without loss of consciousness Fall Dizziness LLQ abdominal pain Medication noncompliance due to cognitive impairment RLQ abdominal pain Sinusitis Flu syndrome Precordial chest pain Atypical chest pain Cold intolerance Former smoker Pulmonary nodule Abnormal lung sounds Fever Constipation Bilateral calf pain Nausea Left lower quadrant abdominal pain Dysuria Fatigue Heart palpitations Lower extremity weakness HTN (hypertension) Aortic stenosis Obstipation Dark stools Lower abdominal pain Gastroenteritis Neck pain on right side URI (upper respiratory infection) Back pain Cough Chest pain Rhinitis Elevated BP without diagnosis of hypertension Non-rheumatic aortic stenosis Diverticulitis GERD (gastroesophageal reflux disease) Cat scratch Cat bite Epigastric discomfort Diarrhea Nausea Viral syndrome GERD (gastroesophageal reflux disease) Neuropathy Arthritis GERD (gastroesophageal reflux disease) HTN (hypertension) Irritable bowel Heart murmur Surgical History S/P TAVR (transcatheter aortic valve replacement) Hx of esophagogastroduodenoscopy Hx of colonoscopy History of tonsillectomy History of appendectomy Family History Family History Father No problems noted. Mother No problems noted. Social History Social History Household Members: Children Housing: House Are you a primary senior care assistant to a significant other at home: No Do you presently have visiting nurse or other home services: No Alcohol intake: never Patient Tobacco Use Status: Former Tobacco user Quit Date: 2013 Tobacco use type: Cigarette e-Cigarette/Vaping Use: Never Used Second Hand Smoke Exposure: No Advance Directives: Yes Advance Directives on File: Yes Advance Directives Date on File: 03/28/23 service: No Current occupational status: retired Cognitive needs: No Hearing needs: No Vision needs: Yes (glasses) Physical Exam ED Vital Signs: Vital Signs - 24 hr 10/07/23 14:00 Temperature 98.0 F Pulse Rate 83 Respiratory Rate 16 Blood Pressure 176/73 H Pulse Oximetry 94 Oxygen Delivery Method Room Air BMI result Body Mass Index 28.2 VITAL SIGNS: Reviewed. GENERAL: Well developed, well nourished, in no acute distress. HEAD: Normocephalic/atraumatic EYES: PERRLA, EOMI EARS: Ext canals without abnormality NOSE: Nares patent bilateral OROPHARYNX: no oral lesions noted, posterior pharynx clear NECK: Supple, no adenopathy LUNGS: Normal breath sounds. No adventitious sounds or accessory muscle use. SpO2<94> CARDIOVASCULAR: Regular rate and rhythm without noted murmurs, no JVD or lower extremity edema. ABDOMEN: Soft, mild tenderness to deep palpation in left lower quad, non-distended with bowel sounds. MUSCULOSKELETAL: No tenderness, deformities, or effusions noted on gross inspection. EXTREMITIES: No cyanosis, clubbing or edema. SKIN: Inspection of the skin reveals no rashes NEUROLOGIC: Alert and oriented x 4. Strength and sensation to light touch were grossly intact x 4. Medical Decision Making Medical Decision Making MDM Narrative: 82-year-old female with history and clinical presentation, DDX: Constipation, UTI, lower clinical suspicion for diverticulitis or renal colic. I reviewed investigations and hematologic indices are chronically stable with a leukopenia and normocytic anemia as well as thrombocytopenia. Chemistry indices are grossly within normal limits, there are no derangements. Signed out to Dr Shasta VASQUEZ, Trop, CT scan Differential Diagnosis Differential Diagnoses: The differential diagnosis associated with the presentation includes Please see the discussion above Admission/Observation Consideration of admission/observation: Escalation of care including admission/observation considered Please see the discussion above Lab Data MDM Lab Attestation statement: I reviewed the patient's lab results. Please see the discussion above 10/07/23 14:44 10/07/23 14:44 Labs: Lab Results 10/07/23 Range/Units 14:44 WBC 3.2 L (4.8-10.8) X10*3/uL RBC 3.13 L (4.20-5.50) X10*6/uL Hgb 9.2 L (12.0-16.0) g/dl Hct 28.6 L (37.0-47.0) % MCV 91.4 (80.0-98.0) fL MCH 29.4 (27.0-33.0) pg MCHC 32.2 (31.0-35.0) g/dl RDW 14.0 (11.0-16.0) % Plt Count 119 L (160-400) X10*3/uL MPV 11.0 (9.4-12.3) fL Immature Gran % (Auto) 0.3 (0.0-0.4) % Neut % (Auto) 74.5 H (45-73) % Lymph % (Auto) 14.5 L (20-40) % [place] % (Auto) 6.9 (2-11) % Eos % (Auto) 3.2 (0-4) % Baso % (Auto) 0.6 (0-2) % Lymph # (Auto) 0.5 L (1.2-4.9) X10*3/uL [place] # (Auto) 0.2 (0.1-1.2) X10*3/uL Eos # (Auto) 0.1 (0.0-0.4) X10*3/uL Baso # (Auto) 0.0 (0.0-0.2) X10*3/uL Abs Immat Gran (auto) 0.01 (0.00-0.03) X10*3/uL Absolute Neuts (auto) 2.4 (2.0-8.3) x10*3/uL Absolute Nucleated RBC 0.000 (0.0-0.012) X10*3/uL Nucleated RBC % (auto) 0.0 (0.0-0.2) /100WBC Sodium 141 (135-145) mmol/L Potassium 4.6 (3.3-5.1) mmol/L Chloride 105 (96-108) mmol/L Carbon Dioxide 29 (22-29) mmol/L Anion Gap 12 (12-20) BUN 14 (9-16) mg/dL Creatinine 0.86 (0.5-1.4) mg/dL Estim Creat Clear Calc 53.6 Estimated GFR > 60 Random Glucose 93 (60-115) mg/dL Calcium 9.5 (8.4-10.2) mg/dL Magnesium 2.1 (1.6-2.6) mg/dL Total Bilirubin 0.5 (0.0-1.0) mg/dL Direct Bilirubin 0.2 (0.0-0.5) mg/dL AST 19 (5-31) U/L ALT 14 (0-31) U/L Alkaline Phosphatase 94 (39-117) U/L Total Protein 6.7 (6.5-8.0) g/dL Albumin 3.9 (3.5-5.0) g/dL Lipase 14 (8-78) U/L Independent Interpretation I performed an independent interpretation of an: EKG Interpretation: Sinus rhythm with first-degree AV block at baseline, HR-79, no STEMI, CO -228, QRS/QTC is within normal limits. Radiology Impression Discussion of test interpretation with radiology: I have reviewed the radiologist's reading. Radiologist Impression: Please see the discussion above Medications Administered Discontinued Medications Generic Name Dose Route Start Last Admin Trade Name Freq PRN Reason Stop Dose Admin Iohexol 85 ml 10/07/23 15:24 10/07/23 15:25 Iohexol 350 Mg/Ml 100 Ml Infus..Btl IV 10/07/23 15:25 85 ml ONCE ONE Administration Critical Care Time Critical Care Time Critical Care Time: Yes Total Critical Care Time: 30 Attestation: I personally attest to this time spent taking care of the patient. Discharge Plan Discharge Clinical Impression: Left lower quadrant pain Patient Disposition: Still a Patient Prescriptions: No Action cyanocobalamin (vitamin B-12) [Vitamin B-12] 1,000 mcg tablet 1,000 mcg PO DAILY Qty: 30 3RF fluticasone propionate 50 mcg/actuation spray,suspension 2 spray intranasal DAILY Qty: 16 0RF famotidine 20 mg tablet 20 mg PO DAILY 30 Days Qty: 30 0RF citalopram 10 mg tablet 10 mg PO BEDTIME ondansetron HCl 4 mg tablet 4 mg PO Q8H PRN (Reason: Nausea) alprazolam 0.25 mg tablet 0.25 mg PO BID PRN (Reason: Anxiety) acetaminophen 500 mg Tablet 1,000 mg PO Q6H PRN (Reason: Pain) hydroxyzine HCl 25 mg tablet 25 mg PO TID PRN (Reason: itching) Qty: 10 0RF aspirin 81 mg tablet,delayed release (DR/EC) 81 mg PO DAILY docusate sodium 100 mg capsule 100 mg PO BID clopidogrel 75 mg tablet 75 mg PO DAILY
[2023-10-07] MEDS: iohexoL 350 MG/ML 100 ML INFUS..BTL 85 ML IV (15:25)
[2023-10-07 16:54] LABS: Troponin-I High Sensitivity 4.2 ng/L (<3.5-17.0)
[2023-10-07 17:18] VITALS: BP 159/80; PULSE 83; RESP 15; TEMP 36.8; O2SAT 95
--- NOTE | 2023-10-07 17:28 | PC.NURSE ---
Patient anxious stating the numbers went away on her monitor, numbers are back now. Patient reassured that the numbers on the monitor look good. Patient concerned because she did not take her Alprazolam this morning and would like to take it. Patient also concerned because she has not eaten today. Concerns brought up to provider, medication ordered and he will look at CT scan for patient before placing a diet order.
[2023-10-07] MEDS: ALPRAZolam 0.25 MG TABLET PO (17:44)
[2023-10-07 20:18] VITALS: BP 160/78; PULSE 82; RESP 18; O2SAT 95
[2023-10-07] MEDS: Amoxicillin/Potassium Clav 875 MG TABLET PO (20:19)
== END 2023-10-07 21:00 | disposition home or self-care (01) ==
PROVIDERS: Student in an Organized Health Care Education/Training Program; Emergency Provider Emergency Medicine Emergency Medical Services
DX: K57.32 Diverticulitis of large intestine without perforation or abscess without bleeding (principal); R10.32 Left lower quadrant pain; R53.1 Weakness; I10 Essential (primary) hypertension; Z79.899 Other long term (current) drug therapy; Z79.82 Long term (current) use of aspirin
CPT/HCPCS: 36415; 74177; 80048; 80076; 83690; 83735; 84484; 85025; 93005; 99284; Q9967

== ENCOUNTER → 2023-10-07 14:36 | Outpatient (BNV) | payer MEDICARE, OTHER, SELFPAY | PROVIDERS: Emergency Provider Emergency Medicine Emergency Medical Services; Visit Provider Internal Medicine Cardiovascular Disease | DX: R07.9 Chest pain, unspecified (principal) | CPT/HCPCS: 93010 ==

== ENCOUNTER 2023-10-09 07:21 | Emergency (ER) | payer MEDICARE, OTHER, SELFPAY ==
[2023-10-09 07:31] VITALS: BP 157/80; PULSE 91; RESP 18; TEMP 36.9; O2SAT 95; BMI 27.4
[2023-10-09 07:44] VITALS: BP 128/78; PULSE 82; RESP 18; TEMP 36.6; O2SAT 98
--- NOTE | 2023-10-09 07:49 | PC.NURSE ---
Pt awake, alert and oriented. Breathing even and unlabored, skin warm and dry. Pt reports LLQ ABD pain, sharp and intermittent X1 week with associated nausea and trouble with bowel movements. Pt reports hx of diverticulitis with multiple similar episodes of this. Pt reports feeling better while at rest, no acute resp distress. Pt denies CP, fever, cough or SOB. ABD soft, non-distended, pain worsens with palpation in LLQ.
--- NOTE | 2023-10-09 07:53 | ED_ITS ---
HPI - Abdominal Pain General Chief Complaint: Abdominal Pain Stated Complaint: Diverticulitis Time Seen by Provider: 10/09/23 07:26 Source: patient Mode of arrival: ambulatory Limitations: no limitations History of Present Illness HPI narrative: 82-year-old female walked into the emergency department for evaluation of abdominal pain, Patient is known to our ED staff with history of anxiety and frequent ED visits. Patient was seen and evaluated on 10/07 for an abdominal pain had a CT scan with IV contrast showed very early sigmoid diverticulitis patient was discharged home on Augmentin. Patient is giving history of amoxicillin and clavulanic acid allergy in the past however patient was given Augmentin in the emergency department on 10/07 with no reaction, was a delay of getting the antibiotic as an outpatient from her pharmacy just got it last night patient is still reluctant to take the antibiotic at home worry about allergic reaction, left-sided abdominal pain persist, no nausea, no vomiting, no fever or chills. Patient is showing mild left abdominal tenderness with no rebound tenderness or guarding and stable vital signs at this point there is no indication to repeat CT scan risking the patient for radiation and IV contrast. Related Data Home Medications Medication Instructions Recorded Confirmed acetaminophen 500 mg tablet 1,000 mg PO Q6H PRN Pain 03/28/23 10/03/23 alprazolam 0.25 mg tablet 0.25 mg PO BID PRN Anxiety 03/28/23 10/03/23 citalopram 10 mg tablet 10 mg PO BEDTIME 03/28/23 10/03/23 ondansetron HCl 4 mg tablet 4 mg PO Q8H PRN Nausea 03/28/23 10/03/23 aspirin 81 mg tablet,delayed 81 mg PO DAILY 09/27/23 10/03/23 release clopidogrel 75 mg tablet 75 mg PO DAILY 09/27/23 10/03/23 docusate sodium 100 mg capsule 100 mg PO BID 09/27/23 10/03/23 Previous Rx's Medication Instructions Recorded cyanocobalamin (vitamin B-12) 1,000 mcg PO DAILY #30 tabs 05/22/23 1,000 mcg tablet (Vitamin B-12) hydroxyzine HCl 25 mg tablet 25 mg PO TID PRN itching #10 tabs 07/21/23 fluticasone propionate 50 2 spray intranasal DAILY #16 grams 08/14/23 mcg/actuation nasal spray,suspension famotidine 20 mg tablet 20 mg PO DAILY 30 days #30 tabs 10/04/23 aluminum hydrox-magnesium carb 254 10 ml PO QID PRN dyspepsia #355 mL 10/07/23 mg-237.5 mg/5 mL oral suspension (Gaviscon Extra Strength) amoxicillin 875 mg-potassium 1 tab PO Q12H 10 days #20 tabs 10/07/23 clavulanate 125 mg tablet Allergies Allergy/AdvReac Type Severity Reaction Status Date / Time buspirone Allergy Intermediate Rash Verified 10/09/23 07:34 Sulfa (Sulfonamide Allergy Intermediate RASH Verified 10/09/23 07:34 Antibiotics) garlic [GARLIC] Allergy Unknown PER H&P Verified 10/09/23 07:34 metronidazole [From FLAGYL] Allergy Unknown OCULAR Verified 10/09/23 07:34 MIGRAINES penicillamine Allergy Unknown Unknown Verified 10/09/23 07:34 ciprofloxacin AdvReac Intermediate neuropathic Verified 10/09/23 07:34 pain lisinopril AdvReac Intermediate Cough Verified 10/09/23 07:34 nitrofurantoin AdvReac Mild GI side Verified 10/09/23 07:34 effects cefuroxime Allergy Intermediate wheezy Uncoded 10/07/23 19:59 cough/itch environmental Allergy Unknown Unknown Uncoded 10/07/23 19:59 flagyl Allergy Unknown Unknown Uncoded 10/07/23 19:59 From KEFLEX Allergy Unknown RASH Uncoded 10/07/23 19:59 Metoprolol Tartrate Allergy Unknown Unknown Uncoded 10/07/23 19:59 Sulfacet-R Allergy Unknown Unknown Uncoded 10/07/23 19:59 Review of Systems Review of Systems All other systems are reviewed and are negative Constitutional: Reports as per HPI and Reports no additional constitutional complaints Eyes: Reports as per HPI and Reports no additional eye complaints Reports system reviewed and no additional complaints, except as documented Cardiovascular: Reports as per HPI and Reports no additional cardiovascular complaints Respiratory: Reports as per HPI and Reports no additional respiratory complaints Gastrointestinal: Reports as per HPI and Reports no additional gastrointestinal complaints Genitourinary: Reports no additional female genitourinary complaints Musculoskeletal: Reports no additional musculoskeletal complaints Skin/Breast: Reports system reviewed and no additional complaints, except as docu Psychiatric: Reports no additional psychiatric complaints Endocrine: Reports no additional endocrine complaints Hematologic/Lymphatic: Reports no additional hematologic/lymphatic complaints Allergic/Immunologic: Reports no additional allergic/immunologic complaints Reports system reviewed and no additional complaints, except as documented and Reports Abnormal speech present [facility] Past Medical History Medical History Anxiety Breast cancer screening Breast pain, left Elevated vitamin B12 level Neck muscle spasm Strain of neck muscle Low back pain Pubic ramus fracture Sore throat Skin tear of upper arm without complication Head injury, acute, without loss of consciousness Fall Dizziness LLQ abdominal pain Medication noncompliance due to cognitive impairment RLQ abdominal pain Sinusitis Flu syndrome Precordial chest pain Atypical chest pain Cold intolerance Former smoker Pulmonary nodule Abnormal lung sounds Fever Constipation Bilateral calf pain Nausea Left lower quadrant abdominal pain Dysuria Fatigue Heart palpitations Lower extremity weakness HTN (hypertension) Aortic stenosis Obstipation Dark stools Lower abdominal pain Gastroenteritis Neck pain on right side URI (upper respiratory infection) Back pain Cough Chest pain Rhinitis Elevated BP without diagnosis of hypertension Non-rheumatic aortic stenosis Diverticulitis GERD (gastroesophageal reflux disease) Cat scratch Cat bite Epigastric discomfort Diarrhea Nausea Viral syndrome GERD (gastroesophageal reflux disease) Neuropathy Arthritis GERD (gastroesophageal reflux disease) HTN (hypertension) Irritable bowel Heart murmur Surgical History S/P TAVR (transcatheter aortic valve replacement) Hx of esophagogastroduodenoscopy Hx of colonoscopy History of tonsillectomy History of appendectomy Family History Family History Father No problems noted. Mother No problems noted. Social History Social History Household Members: Children Housing: House Are you a primary home health care worker to a significant other at home: No Do you presently have visiting nurse or other home services: No Alcohol intake: never Patient Tobacco Use Status: Former Tobacco user Quit Date: 2013 Tobacco use type: Cigarette Smoked in Last 30 Days: No e-Cigarette/Vaping Use: Never Used Second Hand Smoke Exposure: No Use of substances other than those prescribed or required for medical reasons: No Advance Directives: Yes Advance Directives on File: Yes Advance Directives Date on File: 03/28/23 service: No Current occupational status: retired Cognitive needs: No Hearing needs: No Vision needs: Yes (glasses) Physical Exam ED Vital Signs: Vital Signs - 24 hr 10/09/23 07:31 10/09/23 07:44 10/09/23 09:22 Temperature 98.5 F 97.8 F Pulse Rate 91 82 82 Respiratory Rate 18 18 18 Blood Pressure 157/80 H 128/78 173/80 H Pulse Oximetry 95 98 98 Oxygen Delivery Method Room Air Room Air Room Air 10/09/23 11:45 Temperature 98.6 F Pulse Rate 84 Respiratory Rate 16 Blood Pressure 149/78 H Pulse Oximetry 97 Oxygen Delivery Method Room Air BMI result Body Mass Index 27.4 Vital signs have been reviewed and appear to be correct. Blood pressure elevated. Heart rate normal. Respiratory rate normal. Temperature normal. Oxygen saturation normal. Appearance: Alert. Oriented X3. No acute distress. Head: Normal external exam. Normocephalic. Atraumatic. No Calvert signs noted. No raccoon eyes noted Eyes: PERRLA. EOMI. Conjunctiva and sclera normal. Eyelids normal. ENT: TM's Normal. Pharynx normal. Uvula midline. Moist mucous membranes. No trismus noted. No drooling noted. No muffled voice noted. Neck: Normal inspection. Neck supple. FROM. No adenopathy. Thyroid Normal. No meningeal signs. No neck mass noted. CVS: Normal heart rate and rhythm. Heart sound normal. No murmurs noted. Pulses normal throughout. Respiratory: No respiratory distress. Painless inspiration. Breath sounds normal. No wheezes/rales/rhonchi noted. Chest nontender. No accessory muscle usage noted or decreased air movement noted. Abdomen: Soft, mild left lower quadrant tenderness with no guarding or rebound tenderness.Bowel sounds normal in all 4 quadrants. No distention noted. No organomegaly noted. No visible injury noted. Back: No CVA tenderness. Full range of motion noted. Skin: Skin warm and dry. Normal skin color. Normal skin turgor. No rashes/lesions/lacerations noted. Extremities: No lower extremity edema. Extremities exhibit normal range of motion. Extremities nontender. Neuro: Oriented X 3. Cranial nerve exam: II-XII are grossly intact No motor deficit. No sensory deficit. Reflexes normal. Course Reevaluation(s) Reevaluation #1: 82-year-old female with early diverticulitis and abdominal pain and history of anxiety seen and evaluated in the emergency department [address] revealed early diverticulitis patient was sent on Augmentin patient did not take the antibiotic at home, exam is showing no acute abdomen, mild left side abdominal tenderness with no guarding or rebound tenderness, labs are unremarkable at patient's normal baseline, patient was given 1 dose of Augmentin in the emergency department was observed with no side effect development, tolerate p.o. challenge, patient was instructed to take the antibiotic at home and follow-up with cement based materials pump tender. Time: 11:53 Reevaluation #2: patient was given 1 dose of Augmentin in the emergency department started to feels acid reflux to the mid chest patient was anxious, troponin was negative and EKG was unremarkable. Time: 11:55 Medical Decision Making Differential Diagnosis Differential Diagnoses: The differential diagnosis associated with the presentation includes ( Diverticulitis, sepsis, severe anemia, electrolyte abnormality, UTI , allergic reaction to antibiotic, ACS, anxiety.) Admission/Observation Consideration of admission/observation: Escalation of care including admission/observation considered Lab Data MDM Lab Attestation statement: I reviewed the patient's lab results. 10/09/23 08:07 10/09/23 08:29 Labs: Lab Results 10/09/23 10/09/23 10/09/23 Range/Units 08:07 08:29 09:21 WBC 3.3 L (4.8-10.8) X10*3/uL RBC 3.25 L (4.20-5.50) X10*6/uL Hgb 9.6 L (12.0-16.0) g/dl Hct 29.8 L (37.0-47.0) % MCV 91.7 (80.0-98.0) fL MCH 29.5 (27.0-33.0) pg MCHC 32.2 (31.0-35.0) g/dl RDW 13.8 (11.0-16.0) % Plt Count 130 L (160-400) X10*3/uL MPV 11.4 (9.4-12.3) fL Immature Gran % (Auto) 0.3 (0.0-0.4) % Neut % (Auto) 71.4 (45-73) % Lymph % (Auto) 14.8 L (20-40) % Anderson % (Auto) 8.6 (2-11) % Eos % (Auto) 4.3 H (0-4) % Baso % (Auto) 0.6 (0-2) % Lymph # (Auto) 0.5 L (1.2-4.9) X10*3/uL Anderson # (Auto) 0.3 (0.1-1.2) X10*3/uL Eos # (Auto) 0.1 (0.0-0.4) X10*3/uL Baso # (Auto) 0.0 (0.0-0.2) X10*3/uL Abs Immat Gran (auto) 0.01 (0.00-0.03) X10*3/uL Absolute Neuts (auto) 2.3 (2.0-8.3) x10*3/uL Absolute Nucleated RBC 0.000 (0.0-0.012) X10*3/uL Nucleated RBC % (auto) 0.0 (0.0-0.2) /100WBC Sodium 140 (135-145) mmol/L Potassium 3.8 (3.3-5.1) mmol/L Chloride 104 (96-108) mmol/L Carbon Dioxide 28 (22-29) mmol/L Anion Gap 12 (12-20) BUN 12 (9-16) mg/dL Creatinine 0.98 (0.5-1.4) mg/dL Estim Creat Clear Calc 46.4 Estimated GFR 54 Random Glucose 98 (60-115) mg/dL Calcium 9.1 (8.4-10.2) mg/dL Total Bilirubin 0.7 (0.0-1.0) mg/dL Direct Bilirubin 0.3 (0.0-0.5) mg/dL AST 23 (5-31) U/L ALT 14 (0-31) U/L Alkaline Phosphatase 81 (39-117) U/L Troponin I High Sens (<3.5-17.0) ng/L Total Protein 6.3 L (6.5-8.0) g/dL Albumin 3.7 (3.5-5.0) g/dL Lipase 12 (8-78) U/L Urine Color Yellow Urine Appearance Clear Urine pH 6.5 (5.0-9.0) Ur Specific Billings 1.010 (1.005-1.025) Urine Protein Negative (Neg-Trace) mg/dL Urine Glucose (UA) Negative (Negative) mg/dL Urine Ketones Negative (Negative) mg/dL Urine Blood Negative (Negative) Urine Nitrite Negative (Negative) Ur Leukocyte Esterase Negative (Negative) 10/09/23 Range/Units 11:11 WBC (4.8-10.8) X10*3/uL RBC (4.20-5.50) X10*6/uL Hgb (12.0-16.0) g/dl Hct (37.0-47.0) % MCV (80.0-98.0) fL MCH (27.0-33.0) pg MCHC (31.0-35.0) g/dl RDW (11.0-16.0) % Plt Count (160-400) X10*3/uL MPV (9.4-12.3) fL Immature Gran % (Auto) (0.0-0.4) % Neut % (Auto) (45-73) % Lymph % (Auto) (20-40) % Anderson % (Auto) (2-11) % Eos % (Auto) (0-4) % Baso % (Auto) (0-2) % Lymph # (Auto) (1.2-4.9) X10*3/uL Anderson # (Auto) (0.1-1.2) X10*3/uL Eos # (Auto) (0.0-0.4) X10*3/uL Baso # (Auto) (0.0-0.2) X10*3/uL Abs Immat Gran (auto) (0.00-0.03) X10*3/uL Absolute Neuts (auto) (2.0-8.3) x10*3/uL Absolute Nucleated RBC (0.0-0.012) X10*3/uL Nucleated RBC % (auto) (0.0-0.2) /100WBC Sodium (135-145) mmol/L Potassium (3.3-5.1) mmol/L Chloride (96-108) mmol/L Carbon Dioxide (22-29) mmol/L Anion Gap (12-20) BUN (9-16) mg/dL Creatinine (0.5-1.4) mg/dL Estim Creat Clear Calc Estimated GFR Random Glucose (60-115) mg/dL Calcium (8.4-10.2) mg/dL Total Bilirubin (0.0-1.0) mg/dL Direct Bilirubin (0.0-0.5) mg/dL AST (5-31) U/L ALT (0-31) U/L Alkaline Phosphatase (39-117) U/L Troponin I High Sens 6.6 D (<3.5-17.0) ng/L Total Protein (6.5-8.0) g/dL Albumin (3.5-5.0) g/dL Lipase (8-78) U/L Urine Color Urine Appearance Urine pH (5.0-9.0) Ur Specific Billings (1.005-1.025) Urine Protein (Neg-Trace) mg/dL Urine Glucose (UA) (Negative) mg/dL Urine Ketones (Negative) mg/dL Urine Blood (Negative) Urine Nitrite (Negative) Ur Leukocyte Esterase (Negative) Independent Interpretation I performed an independent interpretation of an: EKG ( Normal sinus rhythm at 89 beats per minutes, normal intervals, no ST-T changes.) and CT Scan ( Abdomen and pelvis done on 10/07: Mild acute sigmoid diverticulitis.) Radiology Impression Discussion of test interpretation with radiology: I have reviewed the radiologist's reading. Chronic Conditions Patient?s care impacted by: Other ( Anxiety) Medications Administered Discontinued Medications Generic Name Dose Route Start Last Admin Trade Name Freq PRN Reason Stop Dose Admin Amoxicillin/Clavulanate Potassium 875 mg 10/09/23 07:51 10/09/23 08:18 Amoxicillin/Potassium Clav 875 Mg Tablet PO 10/09/23 07:52 875 mg ONCE ONE Administration Sodium Chloride 1,000 mls @ 999 mls/hr 10/09/23 07:48 10/09/23 10:22 Ns IV 10/09/23 08:48 Infused .Q1H1M ONE Infusion Discharge Plan Discharge Clinical Impression: Diverticulitis, Anxiety Patient Disposition: Home, Self-Care Instructions: Diverticulitis (ED) Additional Instructions: take the prescribed antibiotic as instructed and follow-up with GI specialist. Prescriptions: No Action cyanocobalamin (vitamin B-12) [Vitamin B-12] 1,000 mcg tablet 1,000 mcg PO DAILY Qty: 30 3RF fluticasone propionate 50 mcg/actuation spray,suspension 2 spray intranasal DAILY Qty: 16 0RF famotidine 20 mg tablet 20 mg PO DAILY 30 Days Qty: 30 0RF citalopram 10 mg tablet 10 mg PO BEDTIME ondansetron HCl 4 mg tablet 4 mg PO Q8H PRN (Reason: Nausea) alprazolam 0.25 mg tablet 0.25 mg PO BID PRN (Reason: Anxiety) acetaminophen 500 mg Tablet 1,000 mg PO Q6H PRN (Reason: Pain) amoxicillin-pot clavulanate 875-125 mg tablet 1 tab PO Q12H 10 Days Qty: 20 0RF Gaviscon Extra Strength 254-237.5 mg/5 mL suspension 10 ml PO QID PRN (Reason: dyspepsia) Qty: 355 0RF hydroxyzine HCl 25 mg tablet 25 mg PO TID PRN (Reason: itching) Qty: 10 0RF aspirin 81 mg tablet,delayed release (DR/EC) 81 mg PO DAILY docusate sodium 100 mg capsule 100 mg PO BID clopidogrel 75 mg tablet 75 mg PO DAILY Referrals: Nick Gomez PA-C [Primary Care Provider] - Arun Schreiber MD [Physician] -
[2023-10-09] MEDS: 0.9 % Sodium Chloride 1,000 ML 999 ML IV (08:08)
[2023-10-09 08:14] LABS: MANUAL DIFF FLAG NO
[2023-10-09 08:17] LABS: Basophils Percent Auto 0.6 % (0-2); Eosinophils Absolute Auto 0.1 X10*3/uL (0.0-0.4); Eosinophils Percent Auto 4.3 % (0-4); Hematocrit 29.8 % (37.0-47.0); Hemoglobin 9.6 g/dl (12.0-16.0); Imm Gran Abs Auto 0.01 X10*3/uL (0.00-0.03); Imm Gran Pct Auto 0.3 % (0.0-0.4); Lymphocytes Absolute Auto 0.5 X10*3/uL (1.2-4.9); Lymphocytes Percent Auto 14.8 % (20-40); Mean Corpuscular HGB Conc 32.2 g/dl (31.0-35.0); Mean Corpuscular Hemoglobin 29.5 pg (27.0-33.0); Mean Corpuscular Volume 91.7 fL (80.0-98.0); Mean Platelet Volume 11.4 fL (9.4-12.3); Monocytes Absolute Auto 0.3 X10*3/uL (0.1-1.2); Monocytes Percent Auto 8.6 % (2-11); Neutrophils Absolute Auto 2.3 x10*3/uL (2.0-8.3); Neutrophils Percent Auto 71.4 % (45-73); Platelet Count 130 X10*3/uL (160-400); Red Blood Count 3.25 X10*6/uL (4.20-5.50); Red Cell Distribution Width 13.8 % (11.0-16.0); White Blood Count 3.3 X10*3/uL (4.8-10.8)
[2023-10-09] MEDS: Amoxicillin/Potassium Clav 875 MG TABLET PO (08:18)
[2023-10-09 08:51] LABS: Alanine Aminotransferase 14 U/L (0-31); Albumin Level 3.7 g/dL (3.5-5.0); Alkaline Phosphatase 81 U/L (39-117); Anion Gap 12 (12-20); Aspartate Amino Transferase 23 U/L (5-31); Bilirubin Direct 0.3 mg/dL (0.0-0.5); Bilirubin Total 0.7 mg/dL (0.0-1.0); Blood Urea Nitrogen 12 mg/dL (9-16); Calcium 9.1 mg/dL (8.4-10.2); Carbon Dioxide 28 mmol/L (22-29); Chloride 104 mmol/L (96-108); Creatinine Clr Calc Pharmacy 46.4; Estimated Glomerular Filt Rate 54; Glucose Random 98 mg/dL (60-115); Lipase 12 U/L (8-78); Potassium 3.8 mmol/L (3.3-5.1); Sodium 140 mmol/L (135-145); Total Protein 6.3 g/dL (6.5-8.0)
[2023-10-09 09:22] VITALS: BP 173/80; PULSE 82; RESP 18; O2SAT 98
[2023-10-09 09:30] LABS: Appearance Urine Clear; Color Urine Yellow; Glucose Urine UA Negative (Negative); Leukocyte Esterase Urine Negative (Negative); Nitrite Urine Negative (Negative); PH 6.5 (5.0-9.0); Urine Blood Negative (Negative); Urine Ketones Negative (Negative); Urine Protein Negative (Neg-Trace)
--- NOTE | 2023-10-09 10:22 | PC.NURSE ---
pt reports feeling anxious, reports that is baseline for her. MD aware. pt denies any SOB at this time. resting quietly, no apparent distress.
--- NOTE | 2023-10-09 10:45 | ECG_ITS ---
Test Reason : CP/GERD Blood Pressure : / mmHG Vent. Rate : 089 BPM Atrial Rate : 089 BPM P-R Int : 198 ms QRS Dur : 084 ms QT Int : 376 ms P-R-T Axes : 033 -05 034 degrees QTc Int : 457 ms Normal sinus rhythm Normal ECG When compared with ECG of 07-OCT-2023 14:39, MO interval has decreased Referred By: Rachelle Moreira Electronically Signed By:WILBUR MCFARLAND
[2023-10-09 11:38] LABS: Troponin-I High Sensitivity 6.6 ng/L (<3.5-17.0)
[2023-10-09 11:45] VITALS: BP 149/78; PULSE 84; RESP 16; TEMP 37; O2SAT 97
--- NOTE | 2023-10-09 11:47 | PC.NURSE ---
pt reports pain in LLQ has improved, more comfortable. pt reports only complaint of dry throat, has water at bedside. no signs of resp distress. vss
== END 2023-10-09 12:45 | disposition home or self-care (01) ==
PROVIDERS: Emergency Provider Emergency Medicine; PCP Physician Assistant
DX: K57.32 Diverticulitis of large intestine without perforation or abscess without bleeding (principal); R07.89 Other chest pain; K21.9 Gastro-esophageal reflux disease without esophagitis; F41.1 Generalized anxiety disorder; F43.0 Acute stress reaction; Z79.899 Other long term (current) drug therapy; Z87.891 Personal history of nicotine dependence
CPT/HCPCS: 36415; 80048; 80076; 81003; 83690; 84484; 85025; 93005; 96360; 96361; 99284; 99285

== ENCOUNTER → 2023-10-09 10:45 | Outpatient (BNV) | payer MEDICARE, OTHER, SELFPAY | PROVIDERS: Emergency Provider Emergency Medicine; PCP Physician Assistant; Visit Provider Internal Medicine | DX: R07.9 Chest pain, unspecified (principal) | CPT/HCPCS: 93010 ==

== ENCOUNTER 2023-10-11 12:32 | Outpatient (AMB) | payer MEDICARE, OTHER, SELFPAY ==
--- NOTE | 2023-10-11 12:35 | A.OFFVIS_ITS ---
Intake Vital Signs 10/11/23 12:36 Height 5 ft 6 in Weight 173 lb 4.533 oz BMI 28.0 BP 120/54 L Blood Pressure Location Lt brachial Position Sitting Pulse 82 Pulse Source Pulse Oximeter Intake Visit Reasons: 3 [place] [facility] [place] Intake Note: pt its here for a 3mnth [place] [place], pt states that she its feeling fine. [employer] Required: No Accompanied by: Son Allergies buspirone Allergy (Intermediate, Verified 10/09/23 07:34) Rash Sulfa (Sulfonamide Antibiotics) Allergy (Intermediate, Verified 10/09/23 07:34) RASH garlic [GARLIC] Allergy (Unknown, Verified 10/09/23 07:34) PER H&P metronidazole [From FLAGYL] Allergy (Unknown, Verified 10/09/23 07:34) OCULAR MIGRAINES penicillamine Allergy (Unknown, Verified 10/09/23 07:34) Unknown ciprofloxacin Adverse Reaction (Intermediate, Verified 10/09/23 07:34) neuropathic pain lisinopril Adverse Reaction (Intermediate, Verified 10/09/23 07:34) Cough nitrofurantoin Adverse Reaction (Mild, Verified 10/09/23 07:34) GI side effects cefuroxime Allergy (Intermediate, Uncoded 10/07/23 19:59) wheezy cough/itch environmental Allergy (Unknown, Uncoded 10/07/23 19:59) Unknown flagyl Allergy (Unknown, Uncoded 10/07/23 19:59) Unknown From KEFLEX Allergy (Unknown, Uncoded 10/07/23 19:59) RASH Metoprolol Tartrate Allergy (Unknown, Uncoded 10/07/23 19:59) Unknown Sulfacet-R Allergy (Unknown, Uncoded 10/07/23 19:59) Unknown Medication List - Last Reconciled 10/11/23 by Guillaume Callahan MD acetaminophen 1,000 mg PO Q6H PRN alprazolam 0.25 mg PO BID PRN aluminum hydrox-magnesium carb 254-237.5 mg/5 mL (Gaviscon Extra Strength) 10 mL PO QID PRN amoxicillin-pot clavulanate 875-125 mg 1 tab PO Q12H 10 days aspirin 81 mg PO DAILY atorvastatin 80 mg PO DAILY citalopram 20 mg PO DAILY clopidogrel 75 mg PO DAILY cyanocobalamin (vitamin B-12) (Vitamin B-12) 1,000 mcg PO DAILY docusate sodium 100 mg PO BID fluticasone propionate 50 mcg/actuation 2 sprays intranasal DAILY hydroxyzine HCl 25 mg PO TID PRN ondansetron HCl 4 mg PO Q8H PRN pantoprazole 40 mg PO DAILY HPI HPI Comments History of Present Illness Details 82-year-old female who is here for follo w-up. She is background of severe symptomatic aortic valve stenosis and was referred for transcatheter aortic valve replacement which she underwent recently at [facility]. Unfortunately her clinical course was complicated by CVA. 10/11/2023: She returns for follow-up tomohini ramirez. She had echocardiography performed on September 25 2023 showing normal left ventricular function with ejection fraction 68%. Normal right ventricular size and function. Bioprosthetic aortic valve which was functioning normally. No paravalvular leak noted. She is complaining of left-sided lower abdominal pain and constipation. She said she went to the emergency department a few times over the last week or so. On October 07 she was diagnosed with diverticulitis and was prescribed amoxicillin clavulanate but it appears she did not fill the script till last night and took the 1st dose last evening and 2nd dose this morning. She has significant pain on the left side of abdomen and clearly has some peritoneal sinus to as she is getting pain with movement. She also has nausea and poor appetite. She is little more forgetful. 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 [facility] Medical History Anxiety Breast cancer screening Breast pain, left Elevated vitamin B12 level Neck muscle spasm Strain of neck muscle Low back pain Pubic ramus fracture Sore throat Skin tear of upper arm without complication Head injury, acute, without loss of consciousness Fall Dizziness LLQ abdominal pain Medication noncompliance due to cognitive impairment RLQ abdominal pain Sinusitis Flu syndrome Precordial chest pain Atypical chest pain Cold intolerance Former smoker Pulmonary nodule Abnormal lung sounds Fever Constipation Bilateral calf pain Nausea Left lower quadrant abdominal pain Dysuria Fatigue Heart palpitations Lower extremity weakness HTN (hypertension) Aortic stenosis Obstipation Dark stools Lower abdominal pain Gastroenteritis Neck pain on right side URI (upper respiratory infection) Back pain Cough Chest pain Rhinitis Elevated BP without diagnosis of hypertension Non-rheumatic aortic stenosis Diverticulitis GERD (gastroesophageal reflux disease) Cat scratch Cat bite Epigastric discomfort Diarrhea Nausea Viral syndrome GERD (gastroesophageal reflux disease) Neuropathy Arthritis GERD (gastroesophageal reflux disease) HTN (hypertension) Irritable bowel Heart murmur Surgical History S/P TAVR (transcatheter aortic valve replacement) Hx of esophagogastroduodenoscopy Hx of colonoscopy History of tonsillectomy History of appendectomy Family History Father No problems noted. Mother No problems noted. Social History Household Members: Children Housing: House Are you a primary childcare worker to a significant other at home: No Do you presently have visiting nurse or other home services: No Alcohol intake: never Patient Tobacco Use Status: Former Tobacco user Quit Date: 2013 Tobacco use type: Cigarette e-Cigarette/Vaping Use: Never Used Second Hand Smoke Exposure: No Advance Directives Date on File: 03/28/23 service: No Current occupational status: retired Cognitive needs: No Hearing needs: No Vision needs: Yes (glasses) Review of Systems Const Denies chills, Denies fatigue, Denies fever(s), Denies frequent falls, Denies weakness, Denies weight gain and Denies weight loss ENT Denies dizziness Card Denies chest pain, Denies leg edema, Denies lightheadedness, Denies palpitations, Denies dyspnea and Denies dyspnea on exertion Resp Denies cough, Denies dyspnea and Denies dyspnea on exertion GI Denies hematochezia Musc Denies abnormal gait, Denies muscle weakness, Denies numbness, Denies radiating pain into limb and Denies tingling Neuro Denies abnormal gait, Denies dizziness, Denies frequent falls, Denies numbness, Denies tingling and Denies weakness Endo Denies fatigue and Denies palpitations Physical Exam Vital Signs: BMI result Body Mass Index 28.0 GENERAL APPEARANCE: Distressed from pain. NECK: no carotid bruit, no jugular venous distention. SKIN: no suspicious lesions, warm and dry. HEART: Normal S1 plus S2, regular rate and rhythm. LUNGS: clear to auscultation bilaterally. ABDOMEN: soft, exquisitely tender on the left lower abdomen. EXTREMITIES: no edema. PERIPHERAL PULSES: equal. NEUROLOGIC: No gross deficits, AAO X 3 Assessment & Plan Assessment & Plan (1) S/P AVR: Code(s): Z95.2 - Presence of prosthetic heart valve (2) Acute diverticulitis: Code(s): K57.92 - Diverticulitis of intestine, part unspecified, without perforation or abscess without bleeding Plan Pleasant 82 year female who is here for follow-up. She recently had transcatheter aortic valve replacement. 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 She is complaining of abdominal pain and was diagnosed with diverticulitis on 10/07/2023. She has not started antibiotics to last night. I think she needs to go to emergency department be started on IV antibiotics because she is nauseous and more forgetful. She also has poor appetite. I have spoken with Dr. Rodrigez in the ER. She may need repeat CT scan and will be started on IV antibiotics. Stable from cardiovascular point of view otherwise. Thank you for allowing me to participate in the care of your patient. Please feel free to contact me if you have any questions. Coding Level of Care Code Est Pt Level 4 (02061) Diagnoses S/P AVR Z95.2 Acute diverticulitis K57.92
[2023-10-11 12:36] VITALS: BP 120/54; PULSE 82; BMI 28.0
== END 2023-10-11 16:01 | disposition home or self-care (01) ==
PROVIDERS: PCP Physician Assistant; Visit Provider Internal Medicine Cardiovascular Disease
DX: Z95.2 Presence of prosthetic heart valve (principal); K57.92 Diverticulitis of intestine, part unspecified, without perforation or abscess without bleeding
CPT/HCPCS: 99214

== ENCOUNTER → 2023-10-11 12:32 | Outpatient (BNVA) | payer MEDICARE, OTHER, SELFPAY | PROVIDERS: PCP Physician Assistant; Visit Provider Internal Medicine Cardiovascular Disease ==

== ENCOUNTER 2023-10-11 13:22 | Emergency (ER) | payer MEDICARE, OTHER, SELFPAY ==
--- NOTE | ~2023-10-11 | CT_ITS ---
EXAMINATION: CT ABDOMEN AND PELVIS WITHOUT CONTRAST CLINICAL INFORMATION: Left lower quadrant pain COMPARISON: CT scan abdomen pelvis October 07, 2023 TECHNIQUE: Multidetector volumetric imaging was performed from the superior aspect of the liver through the pubic symphysis. Sagittal and coronal reformatted images were obtained on the technologist's workstation. This CT examination was performed using dose optimization techniques as appropriate, variously including the following: *Automated exposure control *Adjustment of mA and/or kV according to patient size (this includes techniques or standardized protocols for targeted exams where dose is matched to indication/reason for exam; i.e. extremities or head) *Use of iterative reconstruction technique DLP: 450 mGy-cm FINDINGS: LUNG BASES: The visualized lung bases are unremarkable. Heart size is normal. Status post TAVR. LIVER, GALLBLADDER, AND BILIARY TREE: Stable small hepatic cyst right lobe of liver. No suspicious liver lesions or intrahepatic bile duct dilatation. The gallbladder is unremarkable with no evidence of radiopaque gallstones, gallbladder wall thickening, or obvious pericholecystic inflammatory changes. PANCREAS: Unremarkable. SPLEEN: Unremarkable. ADRENAL GLANDS: Unremarkable. KIDNEYS AND URETERS: Nonobstructive 3 mm stone lower pole of left kidney. 5 mm nonobstructive stone in the upper pole left kidney. No stone right kidney. No ureteral calculi. No hydronephrosis BLADDER: Unremarkable. GASTROINTESTINAL TRACT: There are numerous diverticula of the left colon and sigmoid colon. There is no diverticulitis. There is no bowel wall thickening /edema. There is no bowel obstruction. There is a moderate to large volume of stool in the colon. The appendix is nonvisualized . The small bowel loops are unremarkable. The stomach is normal. There is no hiatal hernia. ABDOMINAL WALL: No significant hernia is appreciated. LYMPH NODES: Normal. VASCULAR: Infrarenal abdominal aortic aneurysm measures 3.1 x 3.2 cm. Recommend follow-up every 3 years. Reference: J Am Billy Radiol 2013; 10 (10): 789-794. PELVIC VISCERA: Unremarkable. OSSEOUS STRUCTURES: Multilevel degenerative spondylosis spine. CT/CT abdomen pelvis wo IV con IMPRESSION: 1. No acute abnormality CT scan abdomen pelvis. 2. Diverticulosis of colon. No acute abnormality of the bowel. 3. Nonobstructive left renal stones. No ureteral calculi or hydronephrosis. 4. Infrarenal abdominal aortic aneurysm measures 3.1 x 3.2 cm. Recommend follow-up every 3 years. Reference: J Am Billy Radiol 2013; 10 (10): 789-794. Fleischner guidelines were followed.
[2023-10-11 14:04] VITALS: BP 153/68; PULSE 84; RESP 16; TEMP 36.3; O2SAT 97; BMI 27.4
--- NOTE | 2023-10-11 14:05 | ED.ABDPAIN ---
HPI - Abdominal Pain General Chief Complaint: Abdominal Pain Stated Complaint: Abd pain - sent by Dr Ramsey Seen by Provider: 10/11/23 18:47 Source: patient Mode of arrival: ambulatory History of Present Illness HPI narrative: 82-year-old female who arrives to the emergency room and describes fatigue, weakness, states she is having some difficulty with managing her medications in thinks that she supposed to be getting some additional assistance at home and lives with her son who also requires a significant amount of medical attention due to underlying medical conditions. She otherwise denies any fevers or chills, no nausea or vomiting. She also has some complaints for constipation. Related Data Home Medications Medication Instructions Recorded Confirmed acetaminophen 500 mg tablet 1,000 mg PO Q6H PRN Pain 03/28/23 10/11/23 alprazolam 0.25 mg tablet 0.25 mg PO BID PRN Anxiety 03/28/23 10/11/23 ondansetron HCl 4 mg tablet 4 mg PO Q8H PRN Nausea 03/28/23 10/11/23 aspirin 81 mg tablet,delayed 81 mg PO DAILY 09/27/23 10/11/23 release clopidogrel 75 mg tablet 75 mg PO DAILY 09/27/23 10/11/23 docusate sodium 100 mg capsule 100 mg PO BID 09/27/23 10/11/23 atorvastatin 80 mg tablet 80 mg PO DAILY 10/11/23 10/11/23 citalopram 20 mg tablet 20 mg PO DAILY 10/11/23 10/11/23 famotidine 20 mg tablet 20 mg PO DAILY 10/11/23 pantoprazole 40 mg tablet,delayed 40 mg PO DAILY 10/11/23 10/11/23 release Previous Rx's Medication Instructions Recorded cyanocobalamin (vitamin B-12) 1,000 mcg PO DAILY #30 tabs 05/22/23 1,000 mcg tablet (Vitamin B-12) hydroxyzine HCl 25 mg tablet 25 mg PO TID PRN itching #10 tabs 07/21/23 fluticasone propionate 50 2 spray intranasal DAILY #16 grams 08/14/23 mcg/actuation nasal spray,suspension aluminum hydrox-magnesium carb 254 10 ml PO QID PRN dyspepsia #355 mL 10/07/23 mg-237.5 mg/5 mL oral suspension (Gaviscon Extra Strength) amoxicillin 875 mg-potassium 1 tab PO Q12H 10 days #20 tabs 10/07/23 clavulanate 125 mg tablet Allergies Allergy/AdvReac Type Severity Reaction Status Date / Time buspirone Allergy Intermediate Rash Verified 10/11/23 14:04 Sulfa (Sulfonamide Allergy Intermediate RASH Verified 10/11/23 14:04 Antibiotics) garlic [GARLIC] Allergy Unknown PER H&P Verified 10/11/23 14:04 metronidazole [From FLAGYL] Allergy Unknown OCULAR Verified 10/11/23 14:04 MIGRAINES penicillamine Allergy Unknown Unknown Verified 10/11/23 14:04 ciprofloxacin AdvReac Intermediate neuropathic Verified 10/11/23 14:04 pain lisinopril AdvReac Intermediate Cough Verified 10/11/23 14:04 nitrofurantoin AdvReac Mild GI side Verified 10/11/23 14:04 effects cefuroxime Allergy Intermediate wheezy Uncoded 10/07/23 19:59 cough/itch environmental Allergy Unknown Unknown Uncoded 10/07/23 19:59 flagyl Allergy Unknown Unknown Uncoded 10/07/23 19:59 From KEFLEX Allergy Unknown RASH Uncoded 10/07/23 19:59 Metoprolol Tartrate Allergy Unknown Unknown Uncoded 10/07/23 19:59 Sulfacet-R Allergy Unknown Unknown Uncoded 10/07/23 19:59 Review of Systems Review of Systems Pertinent positives and negatives as stated in the [facility] Past Medical History Source: nursing notes reviewed Medical History Anxiety Breast cancer screening Breast pain, left Elevated vitamin B12 level Neck muscle spasm Strain of neck muscle Low back pain Pubic ramus fracture Sore throat Skin tear of upper arm without complication Head injury, acute, without loss of consciousness Fall Dizziness LLQ abdominal pain Medication noncompliance due to cognitive impairment RLQ abdominal pain Sinusitis Flu syndrome Precordial chest pain Atypical chest pain Cold intolerance Former smoker Pulmonary nodule Abnormal lung sounds Fever Constipation Bilateral calf pain Nausea Left lower quadrant abdominal pain Dysuria Fatigue Heart palpitations Lower extremity weakness HTN (hypertension) Aortic stenosis Obstipation Dark stools Lower abdominal pain Gastroenteritis Neck pain on right side URI (upper respiratory infection) Back pain Cough Chest pain Rhinitis Elevated BP without diagnosis of hypertension Non-rheumatic aortic stenosis Diverticulitis GERD (gastroesophageal reflux disease) Cat scratch Cat bite Epigastric discomfort Diarrhea Nausea Viral syndrome GERD (gastroesophageal reflux disease) Neuropathy Arthritis GERD (gastroesophageal reflux disease) HTN (hypertension) Irritable bowel Heart murmur Surgical History S/P TAVR (transcatheter aortic valve replacement) Hx of esophagogastroduodenoscopy Hx of colonoscopy History of tonsillectomy History of appendectomy Family History Family History Father No problems noted. Mother No problems noted. Social History Social History Household Members: Children Housing: House Are you a primary child care center assistant director to a significant other at home: No Do you presently have visiting nurse or other home services: No Alcohol intake: never Patient Tobacco Use Status: Former Tobacco user Quit Date: 2013 Tobacco use type: Cigarette e-Cigarette/Vaping Use: Never Used Second Hand Smoke Exposure: No Advance Directives: Yes Advance Directives on File: Yes Advance Directives Date on File: 03/28/23 service: No Current occupational status: retired Cognitive needs: No Hearing needs: No Vision needs: Yes (glasses) Physical Exam ED Vital Signs: Vital Signs - 24 hr 10/11/23 14:04 10/11/23 19:50 Temperature 97.4 F 98.1 F Pulse Rate 84 87 Respiratory Rate 16 15 Blood Pressure 153/68 H 158/75 H Pulse Oximetry 97 96 Oxygen Delivery Method Room Air Room Air BMI result Body Mass Index 27.4 VITAL SIGNS: Reviewed. GENERAL: Well developed, well nourished, in no acute distress. HEAD: Normocephalic/atraumatic EYES: PERRLA, EOMI EARS: Ext canals without abnormality NOSE: Nares patent bilateral OROPHARYNX: no oral lesions noted, posterior pharynx clear NECK: Supple, no adenopathy LUNGS: Normal breath sounds. No adventitious sounds or accessory muscle use. SpO2<96> CARDIOVASCULAR: Regular rate and rhythm without noted murmurs, no JVD or lower extremity edema. ABDOMEN: Soft, non-tender, non-distended with bowel sounds. MUSCULOSKELETAL: No tenderness, deformities, or effusions noted on gross inspection. EXTREMITIES: No cyanosis, clubbing or edema. SKIN: Inspection of the skin reveals no rashes NEUROLOGIC: Alert and oriented x 4. Strength and sensation to light touch were grossly intact x 4. Course Course Course Narrative: RME:?82 yo female well known to ED presents today with worsening LLQ pain and nausea. diagnosed with diverticulitis 1 wk ago, just started augmentin last night. send from delicatessen manager for peritoneal signs and IV abx. Reports constipation over the last week however was able to pass small bowel movements yesterday and today. Denies fever, vomiting. well appearing, vitals stable. Abd soft, LLQ tender to palpation. No rebound tenderness or guarding. Normal BS. labs, UA, repeat CT ordered Full HPI, ROS and PE to be performed by the primary ED provider. Medical Decision Making Medical Decision Making MDM Narrative: This is an 82-year-old female that has multiple medical conditions and did spend a short period of time in short-term rehab after getting her TAVR and since that time has presented here to the emergency room and was recently diagnosed with diverticulitis on 10/07 and started on oral antibiotics. Patient's current complaints do not see appear to be associated with any sort of adverse reaction to the antibiotics, however on the visits that I have seen the patient she does appear to be somewhat overwhelmed with the medications and activity and getting to her appointments. She again endorses these concerns here in the emergency room tonight. I reviewed her entire workup for this evening and there are no acute changes noted. Hematologic indices remain chronically stable with a leukopenia and normocytic anemia as well as a thrombocytopenia. Chemistry indices do not demonstrate any AARON or electrolyte/liver enzyme abnormalities and CRP is undetectable. Urinalysis is negative for UTI or hematuria. CT scan is negative for acute intra-abdominal findings. I spoke with case management and asked them to evaluate whether not patient would be able to receive services in home as I do feel that there has a component of being overwhelmed with significant recent medical condition. In addition, she is currently on antibiotics for diverticulitis. Patient is otherwise medically cleared for evaluation by the case management team, will complete medication reconciliation to ensure patient does not miss any evening medications. Patient placed in physician observation because the patient needed more time for case management evaluation. At the time observation was started the patient's vital signs were stable, patient is alert and oriented, neuro: Nonfocal, CV RRR, lungs clear 2057: Patient was seen by case management who has arranged for information regarding transportation, has also set her up with correction and services for light house cleaning, groceries. Case management has also provided direct contact information should she want to reach out. Patient is otherwise stable for discharge back to home and is ending physician observation at this time. Differential Diagnosis Differential Diagnoses: The differential diagnosis associated with the presentation includes Please see the discussion above Admission/Observation Consideration of admission/observation: Escalation of care including admission/observation considered Please see the discussion above Consult Healthcare Provider Management of the patient was discussed with: Search Developer Please see the discussion above Lab Data MDM Lab Attestation statement: I reviewed the patient's lab results. Please see the discussion above 10/11/23 16:01 10/11/23 16:01 Labs: Lab Results 10/11/23 10/11/23 Range/Units 16:01 16:28 WBC 3.6 L (4.8-10.8) X10*3/uL RBC 3.30 L (4.20-5.50) X10*6/uL Hgb 9.7 L (12.0-16.0) g/dl Hct 30.2 L (37.0-47.0) % MCV 91.5 (80.0-98.0) fL MCH 29.4 (27.0-33.0) pg MCHC 32.1 (31.0-35.0) g/dl RDW 13.8 (11.0-16.0) % Plt Count 142 L (160-400) X10*3/uL MPV 11.3 (9.4-12.3) fL Immature Gran % (Auto) 0.0 (0.0-0.4) % Neut % (Auto) 72.1 (45-73) % Lymph % (Auto) 17.0 L (20-40) % Wallace % (Auto) 7.1 (2-11) % Eos % (Auto) 3.3 (0-4) % Baso % (Auto) 0.5 (0-2) % Lymph # (Auto) 0.6 L (1.2-4.9) X10*3/uL Wallace # (Auto) 0.3 (0.1-1.2) X10*3/uL Eos # (Auto) 0.1 (0.0-0.4) X10*3/uL Baso # (Auto) 0.0 (0.0-0.2) X10*3/uL Abs Immat Gran (auto) 0.00 (0.00-0.03) X10*3/uL Absolute Neuts (auto) 2.6 (2.0-8.3) x10*3/uL Absolute Nucleated RBC 0.000 (0.0-0.012) X10*3/uL Nucleated RBC % (auto) 0.0 (0.0-0.2) /100WBC ESR 14 (0-20) MM/HR Sodium 141 (135-145) mmol/L Potassium 4.3 (3.3-5.1) mmol/L Chloride 106 (96-108) mmol/L Carbon Dioxide 28 (22-29) mmol/L Anion Gap 11 L (12-20) BUN 11 (9-16) mg/dL Creatinine 0.80 (0.5-1.4) mg/dL Estim Creat Clear Calc 56.8 Estimated GFR > 60 Random Glucose 90 (60-115) mg/dL Calcium 9.5 (8.4-10.2) mg/dL Magnesium 2.0 (1.6-2.6) mg/dL Total Bilirubin 0.6 (0.0-1.0) mg/dL AST 23 (5-31) U/L ALT 16 (0-31) U/L Alkaline Phosphatase 106 (39-117) U/L C-Reactive Protein < 0.04 (< or = 0.50) mg/dL Total Protein 7.0 (6.5-8.0) g/dL Albumin 4.1 (3.5-5.0) g/dL Lipase 14 (8-78) U/L Urine Color Yellow Urine Appearance Clear Urine pH 5.5 (5.0-9.0) Ur Specific [place] 1.025 (1.005-1.025) Urine Protein Negative (Neg-Trace) mg/dL Urine Glucose (UA) Negative (Negative) mg/dL Urine Ketones Trace (Negative) mg/dL Urine Blood Negative (Negative) Urine Nitrite Negative (Negative) Ur Leukocyte Esterase Negative (Negative) Radiology Impression Discussion of test interpretation with radiology: I have reviewed the radiologist's reading. Radiologist Impression: Please see the discussion above External Record Review External record reviewed: Outpatient record, Prior outpatient labs and Prior outpatient radiology Chronic Conditions Patient?s care impacted by: Hypertension Critical Care Time Critical Care Time Critical Care Time: Yes Total Critical Care Time: 60 Attestation: I personally attest to this time spent taking care of the patient. Discharge Plan Discharge Clinical Impression: Fatigue, Impaired memory Patient Disposition: Home, Self-Care Instructions: Depression in Older Adults (ED) Additional Instructions: 1. Resume all home medications as prescribed. 2. Please utilize the resources that [facility] has provided you with but do not hesitate to reach out and come in for re-evaluation here in the emergency room should you have any worsening or new symptoms. 3. Please continue to follow-up with your primary care doctor. Prescriptions: No Action cyanocobalamin (vitamin B-12) [Vitamin B-12] 1,000 mcg tablet 1,000 mcg PO DAILY Qty: 30 3RF fluticasone propionate 50 mcg/actuation spray,suspension 2 spray intranasal DAILY Qty: 16 0RF ondansetron HCl 4 mg tablet 4 mg PO Q8H PRN (Reason: Nausea) alprazolam 0.25 mg tablet 0.25 mg PO BID PRN (Reason: Anxiety) acetaminophen 500 mg Tablet 1,000 mg PO Q6H PRN (Reason: Pain) amoxicillin-pot clavulanate 875-125 mg tablet 1 tab PO Q12H 10 Days Qty: 20 0RF Gaviscon Extra Strength 254-237.5 mg/5 mL suspension 10 ml PO QID PRN (Reason: dyspepsia) Qty: 355 0RF famotidine 20 mg tablet 20 mg PO DAILY hydroxyzine HCl 25 mg tablet 25 mg PO TID PRN (Reason: itching) Qty: 10 0RF aspirin 81 mg tablet,delayed release (DR/EC) 81 mg PO DAILY docusate sodium 100 mg capsule 100 mg PO BID clopidogrel 75 mg tablet 75 mg PO DAILY citalopram 20 mg tablet 20 mg PO DAILY pantoprazole 40 mg tablet,delayed release (DR/EC) 40 mg PO DAILY atorvastatin 80 mg tablet 80 mg PO DAILY Referrals: Nick Gomez PA-C [Primary Care Provider] -
[2023-10-11 16:05] LABS: MANUAL DIFF FLAG NO
[2023-10-11 16:09] LABS: Basophils Percent Auto 0.5 % (0-2); Eosinophils Absolute Auto 0.1 X10*3/uL (0.0-0.4); Eosinophils Percent Auto 3.3 % (0-4); Hematocrit 30.2 % (37.0-47.0); Hemoglobin 9.7 g/dl (12.0-16.0); Lymphocytes Absolute Auto 0.6 X10*3/uL (1.2-4.9); Mean Corpuscular HGB Conc 32.1 g/dl (31.0-35.0); Mean Corpuscular Hemoglobin 29.4 pg (27.0-33.0); Mean Corpuscular Volume 91.5 fL (80.0-98.0); Mean Platelet Volume 11.3 fL (9.4-12.3); Monocytes Absolute Auto 0.3 X10*3/uL (0.1-1.2); Monocytes Percent Auto 7.1 % (2-11); Neutrophils Absolute Auto 2.6 x10*3/uL (2.0-8.3); Neutrophils Percent Auto 72.1 % (45-73); Platelet Count 142 X10*3/uL (160-400); Red Cell Distribution Width 13.8 % (11.0-16.0); White Blood Count 3.6 X10*3/uL (4.8-10.8)
[2023-10-11 16:22] LABS: Alanine Aminotransferase 16 U/L (0-31); Albumin Level 4.1 g/dL (3.5-5.0); Alkaline Phosphatase 106 U/L (39-117); Anion Gap 11 (12-20); Aspartate Amino Transferase 23 U/L (5-31); Bilirubin Total 0.6 mg/dL (0.0-1.0); Blood Urea Nitrogen 11 mg/dL (9-16); C Reactive Protein < 0.04 mg/dL (< or = 0.50); Calcium 9.5 mg/dL (8.4-10.2); Carbon Dioxide 28 mmol/L (22-29); Chloride 106 mmol/L (96-108); Creatinine Clr Calc Pharmacy 56.8; Estimated Glomerular Filt Rate > 60; Glucose Random 90 mg/dL (60-115); Lipase 14 U/L (8-78); Potassium 4.3 mmol/L (3.3-5.1); Sodium 141 mmol/L (135-145)
[2023-10-11 16:42] LABS: Erythrocyte Sedimentation Rate 14 MM/HR (0-20)
[2023-10-11 16:58] LABS: Appearance Urine Clear; Color Urine Yellow; Glucose Urine UA Negative (Negative); Leukocyte Esterase Urine Negative (Negative); Nitrite Urine Negative (Negative); PH 5.5 (5.0-9.0); Specific Gravity - Urine 1.025 (1.005-1.025); Urine Blood Negative (Negative); Urine Ketones Trace mg/dL (Negative); Urine Protein Negative (Neg-Trace)
[2023-10-11 19:50] VITALS: BP 158/75; PULSE 87; RESP 15; TEMP 36.7; O2SAT 96
--- NOTE | 2023-10-11 21:10 | PHA.MEDREC ---
Pharmacy Consult ? Medication Reconciliation Pharmacy has completed the medication reconciliation. Patient confirmed medications. Xin Ruelas, AleaxnderD
--- NOTE | 2023-10-11 21:59 | MHC.CM.ED ---
CM met with patient at the request of Dr. Burns. Pt is alert and orientated x4. Grooming good. Affect bright. Very pleasant and talkative with CM. Pt lives with son. Uses no DME.Pt is active with [facility]. Pt admits to some stressors in her life, including recent TAVR procedure, living with her disabled son, and recently not driving over concerns about some short term memory loss. Pt tells me she is a and cared for her with dementia. Patient tells CM that her grown son is disabled, having been diagnosed with a benign brain tumor and kidney cancer. He also has seizures. He does not work, collects disability and cannot drive. States her son is independent at home, but does very little with regarding to home care. Pt tells CM she has a weekly telehealth appointment with a therapist from [facility] [employer] , which she finds very helpful. Pt shares that she liked to go to the [facility], but cannot drive. Pt would also like some help in the home. Pt states she was active with [facility] in the past. Referral to [facility] via tasks for help with housekeeping, groceries and laundry. Pt given contact information for [facility] to request van transportation to facility for lunch. Encouraged patient to keep up with weekly therapy appointments. CM contact card given. Dr. Burns aware of above. Will discharge home.
== END 2023-10-11 21:11 | disposition home or self-care (01) ==
PROVIDERS: Physician Assistant Medical; Emergency Provider Student in an Organized Health Care Education/Training Program; PCP Physician Assistant
DX: G31.84 Mild cognitive impairment of uncertain or unknown etiology (principal); R53.1 Weakness; R53.83 Other fatigue; I10 Essential (primary) hypertension; R10.32 Left lower quadrant pain; Z95.2 Presence of prosthetic heart valve
CPT/HCPCS: 36415; 74176; 80053; 81003; 83690; 83735; 85025; 85652; 86140; 99212; 99283; 99284

== ENCOUNTER 2023-10-14 17:16 | Emergency (ER) | payer MEDICARE, OTHER, SELFPAY ==
--- NOTE | 2023-10-14 17:25 | ED.ABDPAIN ---
HPI - Abdominal Pain General Chief Complaint: Abdominal Pain Stated Complaint: Abdominal pain Time Seen by Provider: 10/14/23 18:36 History of Present Illness HPI narrative: The patient is an 82-year-old woman who has come to the emergency department several times in the last 2 weeks. She has been complaining variously of abdominal pains, chest pains, and urinary symptoms. On her 3rd visit on October [address] scan of the abdomen and pelvis that described possible mild diverticulitis. However on a visit on October [address] scan in which it was not felt that she had any findings of diverticulitis. She has not had any significant laboratory abnormalities to suggest an acute bacterial process of any kind. She was briefly on Augmentin after the CT on October 07 but then the antibiotics were stopped 2 days ago. Apparently she had recurrent left lower abdominal pain today and contacted her primary care doctor's office and was advised to come back to the hospital. By the time I examined her the pain was less bad. She then indicated that she was having pain in the left breast. She has not had any vomiting. She has not had any fevers. Related Data Home Medications Medication Instructions Recorded Confirmed acetaminophen 500 mg tablet 1,000 mg PO Q6H PRN Pain 03/28/23 10/11/23 alprazolam 0.25 mg tablet 0.25 mg PO BID PRN Anxiety 03/28/23 10/11/23 ondansetron HCl 4 mg tablet 4 mg PO Q8H PRN Nausea 03/28/23 10/11/23 clopidogrel 75 mg tablet 75 mg PO DAILY 09/27/23 10/11/23 docusate sodium 100 mg capsule 100 mg PO DAILY 09/27/23 10/11/23 atorvastatin 80 mg tablet 80 mg PO BEDTIME 10/11/23 10/11/23 cholecalciferol (vitamin D3) 25 25 mcg PO DAILY 10/11/23 10/11/23 mcg (1,000 unit) tablet citalopram 20 mg tablet 20 mg PO BEDTIME 10/11/23 10/11/23 folic acid 1 mg tablet 1 mg PO DAILY 10/11/23 10/11/23 pantoprazole 40 mg tablet,delayed 40 mg PO DAILY 10/11/23 10/11/23 release polyethylene glycol 3350 17 17 g PO DAILY PRN Constipation 10/11/23 10/11/23 gram/dose oral powder (Miralax) Previous Rx's Medication Instructions Recorded cyanocobalamin (vitamin B-12) 1,000 mcg PO DAILY #30 tabs 05/22/23 1,000 mcg tablet (Vitamin B-12) hydroxyzine HCl 25 mg tablet 25 mg PO TID PRN itching #10 tabs 07/21/23 fluticasone propionate 50 2 spray intranasal DAILY #16 grams 08/14/23 mcg/actuation nasal spray,suspension amoxicillin 875 mg-potassium 1 tab PO Q12H 10 days #20 tabs 10/07/23 clavulanate 125 mg tablet aspirin 81 mg tablet,delayed 81 mg PO DAILY #30 tabs 10/13/23 release Allergies Allergy/AdvReac Type Severity Reaction Status Date / Time buspirone Allergy Intermediate Rash Verified 10/14/23 17:35 Sulfa (Sulfonamide Allergy Intermediate RASH Verified 10/14/23 17:35 Antibiotics) garlic [GARLIC] Allergy Unknown PER H&P Verified 10/14/23 17:35 metronidazole [From FLAGYL] Allergy Unknown OCULAR Verified 10/14/23 17:35 MIGRAINES penicillamine Allergy Unknown Unknown Verified 10/14/23 17:35 ciprofloxacin AdvReac Intermediate neuropathic Verified 10/14/23 17:35 pain lisinopril AdvReac Intermediate Cough Verified 10/14/23 17:35 nitrofurantoin AdvReac Mild GI side Verified 10/14/23 17:35 effects cefuroxime Allergy Intermediate wheezy Uncoded 10/07/23 19:59 cough/itch environmental Allergy Unknown Unknown Uncoded 10/07/23 19:59 flagyl Allergy Unknown Unknown Uncoded 10/07/23 19:59 From KEFLEX Allergy Unknown RASH Uncoded 10/07/23 19:59 Metoprolol Tartrate Allergy Unknown Unknown Uncoded 10/07/23 19:59 Sulfacet-R Allergy Unknown Unknown Uncoded 10/07/23 19:59 Review of Systems Review of Systems Yes all other systems are reviewed and are negative [facility] Past Medical History Medical History Anxiety Breast cancer screening Breast pain, left Elevated vitamin B12 level Neck muscle spasm Strain of neck muscle Low back pain Pubic ramus fracture Sore throat Skin tear of upper arm without complication Head injury, acute, without loss of consciousness Fall Dizziness LLQ abdominal pain Medication noncompliance due to cognitive impairment RLQ abdominal pain Sinusitis Flu syndrome Precordial chest pain Atypical chest pain Cold intolerance Former smoker Pulmonary nodule Abnormal lung sounds Fever Constipation Bilateral calf pain Nausea Left lower quadrant abdominal pain Dysuria Fatigue Heart palpitations Lower extremity weakness HTN (hypertension) Aortic stenosis Obstipation Dark stools Lower abdominal pain Gastroenteritis Neck pain on right side URI (upper respiratory infection) Back pain Cough Chest pain Rhinitis Elevated BP without diagnosis of hypertension Non-rheumatic aortic stenosis Diverticulitis GERD (gastroesophageal reflux disease) Cat scratch Cat bite Epigastric discomfort Diarrhea Nausea Viral syndrome GERD (gastroesophageal reflux disease) Neuropathy Arthritis GERD (gastroesophageal reflux disease) HTN (hypertension) Irritable bowel Heart murmur Surgical History S/P TAVR (transcatheter aortic valve replacement) Hx of esophagogastroduodenoscopy Hx of colonoscopy History of tonsillectomy History of appendectomy Family History Family History Father No problems noted. Mother No problems noted. Social History Social History Household Members: Children Housing: House Are you a primary healthcare educator to a significant other at home: No Do you presently have visiting nurse or other home services: No Alcohol intake: never Patient Tobacco Use Status: Former Tobacco user Quit Date: 2013 Tobacco use type: Cigarette Smoked in Last 30 Days: No e-Cigarette/Vaping Use: Never Used Second Hand Smoke Exposure: No Use of substances other than those prescribed or required for medical reasons: No Advance Directives: Yes Advance Directives on File: Yes Advance Directives Date on File: 03/28/23 service: No Current occupational status: retired Cognitive needs: No Hearing needs: No Vision needs: Yes (glasses) Physical Exam ED Vital Signs: Vital Signs - 24 hr 10/14/23 17:32 10/14/23 19:34 Temperature 98.0 F 98.3 F Pulse Rate 86 82 Respiratory Rate 20 16 Blood Pressure 147/72 H 172/84 H Pulse Oximetry 96 97 Oxygen Delivery Method Room Air Room Air BMI result Body Mass Index 26.6 Const Other: The patient is awake and alert. She seems anxious. She does not seem obviously acutely ill in any way. HENMT Other: Face is symmetrical. Mucous membranes moist Eyes Other: Pupils are round equal, conjunctivae are clear, extraocular movements intact Neck Other: No JVD Chest Other: There is left-sided chest wall tenderness Resp Effort & Inspection: normal respiratory effort Auscultation: clear to auscultation bilaterally Cardio Rate: regular rate Rhythm: regular rhythm Heart sounds: S1 normal heart sound present and S2 normal heart sound present Other: The patient has diffuse abdominal tenderness without rebound or guarding. Skin Other: Skin is pale and dry Neuro Other: The patient is awake and alert. She is pleasant and cooperative. She has a very anxious affect. Cranial nerves are grossly intact. She moves her extremities symmetrically. No obvious focal neurological deficit. Extrem Other: No peripheral edema Course Course Course Narrative: This is an RME: Additional HPI, ROS, PE not included below will be deferred to primary provider. Received a call from patient's office, spoke with Dr. Feliciano who does not know the patient personally, but reports that she was endorsing 10/10 left lower quadrant pain, he advised her to come to the emergency department. Upon review, she was evaluated 10/07/[address] scan at that time revealed possible early diverticulitis, she was provided with options to monitor for further symptoms versus treat with antibiotics which she elected for treatment. She was given a 7 day prescription for Augmentin which she has completed. However symptoms persist. Plan: labs Medical Decision Making Medical Decision Making [facility] Narrative: The patient is an 82-year-old female who has been coming to the emergency room multiple times over the last 2 days for variety of complaints of discomfort in the abdomen and the chest. My overall impression is that she is probably having some kind of musculoskeletal discomfort. Patient had a TAVR and had some small strokes after the procedure. Perhaps this has affected her level of anxiety. The patient requested a dose of alprazolam here. She was given alprazolam and Tylenol. She seemed to feel better. She has benign labs. She has a benign exam. I think she may be discharged with instructions to use Tylenol for her pains which I think are most likely musculoskeletal pains. If significantly worse she should return to the emergency room Lab Data 10/14/23 18:46 10/14/23 18:46 Labs: Lab Results 02/10/24 02/10/24 Range/Units 18:46 19:26 WBC 3.8 L (4.8-10.8) X10*3/uL RBC 3.38 L (4.20-5.50) X10*6/uL Hgb 9.8 L (12.0-16.0) g/dl Hct 30.5 L (37.0-47.0) % MCV 90.2 (80.0-98.0) fL MCH 29.0 (27.0-33.0) pg MCHC 32.1 (31.0-35.0) g/dl RDW 13.8 (11.0-16.0) % Plt Count 134 L (160-400) X10*3/uL MPV 11.7 (9.4-12.3) fL Immature Gran % (Auto) 0.3 (0.0-0.4) % Neut % (Auto) 72.8 (45-73) % Lymph % (Auto) 14.2 L (20-40) % Forrest % (Auto) 7.9 (2-11) % Eos % (Auto) 4.0 (0-4) % Baso % (Auto) 0.8 (0-2) % Lymph # (Auto) 0.5 L (1.2-4.9) X10*3/uL Forrest # (Auto) 0.3 (0.1-1.2) X10*3/uL Eos # (Auto) 0.2 (0.0-0.4) X10*3/uL Baso # (Auto) 0.0 (0.0-0.2) X10*3/uL Abs Immat Gran (auto) 0.01 (0.00-0.03) X10*3/uL Absolute Neuts (auto) 2.8 (2.0-8.3) x10*3/uL Absolute Nucleated RBC 0.030 H (0.0-0.012) X10*3/uL Nucleated RBC % (auto) 0.8 H (0.0-0.2) /100WBC Sodium 140 (135-145) mmol/L Potassium 3.6 (3.3-5.1) mmol/L Chloride 103 (96-108) mmol/L Carbon Dioxide 28 (22-29) mmol/L Anion Gap 13 (12-20) BUN 14 (9-16) mg/dL Creatinine 0.82 (0.5-1.4) mg/dL Estim Creat Clear Calc 54.7 Estimated GFR > 60 Random Glucose 87 (60-115) mg/dL Calcium 9.5 (8.4-10.2) mg/dL Total Bilirubin 0.6 (0.0-1.0) mg/dL AST 43 H (5-31) U/L ALT 30 (0-31) U/L Alkaline Phosphatase 132 H (39-117) U/L C-Reactive Protein < 0.10 (< or = 0.50) mg/dL Total Protein 6.7 (6.5-8.0) g/dL Albumin 4.0 (3.5-5.0) g/dL Lipase 14 (8-78) U/L Urine Color Yellow Urine Appearance Clear Urine pH 6.5 (5.0-9.0) Ur Specific [place] 1.010 (1.005-1.025) Urine Protein Negative (Neg-Trace) mg/dL Urine Glucose (UA) Negative (Negative) mg/dL Urine Ketones Negative (Negative) mg/dL Urine Blood Negative (Negative) Urine Nitrite Negative (Negative) Ur Leukocyte Esterase Negative (Negative) Medications Administered Discontinued Medications Generic Name Dose Route Start Last Admin Trade Name Zarina PRN Reason Stop Dose Admin Acetaminophen 975 mg 10/14/23 19:11 10/14/23 19:15 Acetaminophen 325 Mg Tablet PO 10/14/23 19:12 975 mg ONCE ONE Administration Alprazolam 0.25 mg 10/14/23 19:11 10/14/23 19:15 Alprazolam 0.25 Mg Tablet PO 10/14/23 19:12 0.25 mg ONCE ONE Administration Discharge Plan Discharge Clinical Impression: Pain of left side of body Patient Disposition: Home, Self-Care Additional Instructions: I think the pains you are experiencing are most likely muscular pains. Please use Tylenol as needed for these pains. Please plan on following up with your regular doctor in the next week or 2 to discuss these pains. If at any point you are significantly worse please return to the emergency room for re-evaluation. Prescriptions: No Action cyanocobalamin (vitamin B-12) [Vitamin B-12] 1,000 mcg tablet 1,000 mcg PO DAILY Qty: 30 3RF fluticasone propionate 50 mcg/actuation spray,suspension 2 spray intranasal DAILY Qty: 16 0RF aspirin 81 mg tablet,delayed release (DR/EC) 81 mg PO DAILY Qty: 30 0RF ondansetron HCl 4 mg tablet 4 mg PO Q8H PRN (Reason: Nausea) alprazolam 0.25 mg tablet 0.25 mg PO BID PRN (Reason: Anxiety) acetaminophen 500 mg Tablet 1,000 mg PO Q6H PRN (Reason: Pain) amoxicillin-pot clavulanate 875-125 mg tablet 1 tab PO Q12H 10 Days Qty: 20 0RF folic acid 1 mg Tablet 1 mg PO DAILY polyethylene glycol 3350 [Miralax] 17 gram/dose Powder 17 g PO DAILY PRN (Reason: Constipation) cholecalciferol (vitamin D3) 25 mcg (1,000 unit) Tablet 25 mcg PO DAILY hydroxyzine HCl 25 mg tablet 25 mg PO TID PRN (Reason: itching) Qty: 10 0RF docusate sodium 100 mg capsule 100 mg PO DAILY clopidogrel 75 mg tablet 75 mg PO DAILY citalopram 20 mg tablet 20 mg PO BEDTIME pantoprazole 40 mg tablet,delayed release (DR/EC) 40 mg PO DAILY atorvastatin 80 mg tablet 80 mg PO BEDTIME Referrals: Nick Gomez PA-C [Primary Care Provider] - ([place] pains, anxiety)
[2023-10-14 17:32] VITALS: BP 147/72; PULSE 86; RESP 20; TEMP 36.7; O2SAT 96; BMI 26.6
[2023-10-14 18:50] LABS: MANUAL DIFF FLAG NO
[2023-10-14 19:01] LABS: Basophils Percent Auto 0.8 % (0-2); Eosinophils Absolute Auto 0.2 X10*3/uL (0.0-0.4); Hematocrit 30.5 % (37.0-47.0); Hemoglobin 9.8 g/dl (12.0-16.0); Imm Gran Abs Auto 0.01 X10*3/uL (0.00-0.03); Imm Gran Pct Auto 0.3 % (0.0-0.4); Lymphocytes Absolute Auto 0.5 X10*3/uL (1.2-4.9); Lymphocytes Percent Auto 14.2 % (20-40); Mean Corpuscular HGB Conc 32.1 g/dl (31.0-35.0); Mean Corpuscular Volume 90.2 fL (80.0-98.0); Mean Platelet Volume 11.7 fL (9.4-12.3); Monocytes Absolute Auto 0.3 X10*3/uL (0.1-1.2); Monocytes Percent Auto 7.9 % (2-11); NRBC Pct Auto 0.8 /100WBC (0.0-0.2); Neutrophils Absolute Auto 2.8 x10*3/uL (2.0-8.3); Neutrophils Percent Auto 72.8 % (45-73); Platelet Count 134 X10*3/uL (160-400); Red Blood Count 3.38 X10*6/uL (4.20-5.50); Red Cell Distribution Width 13.8 % (11.0-16.0); White Blood Count 3.8 X10*3/uL (4.8-10.8)
[2023-10-14 19:06] LABS: Alanine Aminotransferase 30 U/L (0-31); Alkaline Phosphatase 132 U/L (39-117); Anion Gap 13 (12-20); Aspartate Amino Transferase 43 U/L (5-31); Bilirubin Total 0.6 mg/dL (0.0-1.0); Blood Urea Nitrogen 14 mg/dL (9-16); Calcium 9.5 mg/dL (8.4-10.2); Carbon Dioxide 28 mmol/L (22-29); Chloride 103 mmol/L (96-108); Creatinine Clr Calc Pharmacy 54.7; Estimated Glomerular Filt Rate > 60; Glucose Random 87 mg/dL (60-115); Lipase 14 U/L (8-78); Potassium 3.6 mmol/L (3.3-5.1); Sodium 140 mmol/L (135-145); Total Protein 6.7 g/dL (6.5-8.0)
[2023-10-14] MEDS: Acetaminophen 325 MG TABLET 975 MG PO (19:15)
[2023-10-14] MEDS: ALPRAZolam 0.25 MG TABLET PO (19:15)
[2023-10-14 19:34] VITALS: BP 172/84; PULSE 82; RESP 16; TEMP 36.8; O2SAT 97
[2023-10-14 19:35] LABS: Appearance Urine Clear; Color Urine Yellow; Glucose Urine UA Negative (Negative); Leukocyte Esterase Urine Negative (Negative); Nitrite Urine Negative (Negative); PH 6.5 (5.0-9.0); Urine Blood Negative (Negative); Urine Ketones Negative (Negative); Urine Protein Negative (Neg-Trace)
[2023-10-14 19:41] LABS: C Reactive Protein < 0.10 mg/dL (< or = 0.50)
[2023-10-14] MEDS: Magnesium Hydrox/Alum Hydrox 30 ML ORAL.SUSP PO (20:41)
== END 2023-10-14 21:07 | disposition home or self-care (01) ==
PROVIDERS: Nurse Practitioner Family; Emergency Provider Emergency Medicine; PCP Physician Assistant
DX: M79.18 Myalgia, other site (principal); R10.30 Lower abdominal pain, unspecified; I10 Essential (primary) hypertension; Z95.2 Presence of prosthetic heart valve; Z86.73 Personal history of transient ischemic attack (TIA), and cerebral infarction without residual deficits
CPT/HCPCS: 36415; 80053; 81003; 83690; 85025; 86140; 99283; 99284

== ENCOUNTER 2023-10-18 11:00 | Outpatient (AMB) | payer MEDICARE, OTHER, SELFPAY ==
[2023-10-18 11:31] VITALS: BP 152/72; PULSE 85; O2SAT 96; BMI 27.7
--- NOTE | 2023-10-18 11:31 | A.OFFPC_ITS ---
Vital Signs 3 10/18/23 11:31 Height 5 ft 6 in Weight 171 lb 6 oz BMI 27.7 BP 152/72 H Blood Pressure Location Lt brachial Position Sitting Pulse 85 Pulse Source Pulse Oximeter Pulse Oximetry (%) 96 Oxygen Delivery Method Room Air Intake Visit Reasons: f/u - anxiety Fabricator Special Items Required: No Accompanied by: Self / Same As Patient Allergies buspirone Allergy (Intermediate, Verified 10/18/23 11:48) Rash Sulfa (Sulfonamide Antibiotics) Allergy (Intermediate, Verified 10/18/23 11:48) RASH garlic [GARLIC] Allergy (Unknown, Verified 10/18/23 11:48) PER H&P metronidazole [From FLAGYL] Allergy (Unknown, Verified 10/18/23 11:48) OCULAR MIGRAINES penicillamine Allergy (Unknown, Verified 10/18/23 11:48) Unknown ciprofloxacin Adverse Reaction (Intermediate, Verified 10/18/23 11:48) neuropathic pain lisinopril Adverse Reaction (Intermediate, Verified 10/18/23 11:48) Cough nitrofurantoin Adverse Reaction (Mild, Verified 10/18/23 11:48) GI side effects cefuroxime Allergy (Intermediate, Uncoded 10/18/23 11:34) wheezy cough/itch environmental Allergy (Unknown, Uncoded 10/18/23 11:34) Unknown flagyl Allergy (Unknown, Uncoded 10/18/23 11:34) Unknown From KEFLEX Allergy (Unknown, Uncoded 10/18/23 11:34) RASH Metoprolol Tartrate Allergy (Unknown, Uncoded 10/18/23 11:34) Unknown Sulfacet-R Allergy (Unknown, Uncoded 10/18/23 11:34) Unknown Medication List - Last Reconciled 10/18/23 by Nick Gomez PA-C acetaminophen 1,000 mg PO Q6H PRN alprazolam 0.25 mg PO BID PRN aspirin 81 mg PO DAILY atorvastatin 40 mg PO DAILY cholecalciferol (vitamin D3) 25 mcg PO DAILY citalopram 20 mg PO BEDTIME clopidogrel 75 mg PO DAILY coenzyme Q10 100 mg PO DAILY PRN cyanocobalamin (vitamin B-12) (Vitamin B-12) 1,000 mcg PO DAILY docusate sodium 100 mg PO DAILY fluticasone propionate 50 mcg/actuation 2 sprays intranasal DAILY folic acid 1 mg PO DAILY hydroxyzine HCl 25 mg PO TID PRN ondansetron HCl 4 mg PO Q8H PRN pantoprazole 40 mg PO DAILY polyethylene glycol 3350 (Miralax) 17 grams PO DAILY PRN Tobacco use date assessed: 09/27/23 Fall risk assessment: No Falls in past year Last assessed Fall Risk: 10/18/23 Dental Screening Dental Screen Date: 10/18/23 Did you have a dental visit in the last 12 months?: No Did you have a dental problem in the last 6 months where you did not have access to dental care?: No Was dental information given to patient?: Patient has dentist HPI f/u - anxiety 2 HPI0 Details Patient is an 82-year-old female here today for follow-up visit. Patient has a past medical history significant for severe generalized anxiety disorder, chronic constipation, aortic stenosis, hypertension. Recently seen at the [place] [facility] for left-sided abdominal pain that seem to have gotten better , Though today reports today really bad left lower quadrant abdominal pain. She denies any diarrhea though does report only small amounts stool comes out when she defecates. She did get a CT of her abdomen and pelvis last week that did not show any acute diverticulitis or mass. She does admit to 1 episode after using MiraLax of complete bowel emptying and reported some short-term relief of her left lower quadrant abdominal pain. .. Aortic stenosis: She is now status post aortic valve replacement Continues to follow cardiology, she is due for cardiac event monitor to evaluate for AFib., Recent coronary catheterization without any significant coronary artery disease. She will be meeting with thoracic surgeons at [facility] soon. She continues to have anemia which may related to her aortic valve severe stenosis. . CHRONIC MEDICAL CONDITIONS--> . Cerebral ventriculomegaly: MRA head showing ventriculomegaly, has followed up with neurologist though was told not to worry about this finding. Otherwise does not show signs and symptoms of normal pressure hydrocephalus. .. Severe anxiety: Continues to follow mental therapist and a psychiatrist (Dr. guerrero). She continues on low-dose Celexa though believes that this is making her mood worse and would like to wean off of this medication and will speak with her psychiatrist. Does use alprazolam 0.25 mg on a p.r.n. basis that is helpful for anxiety. Advised speaking with her psychiatrist about more longer-acting benzodiazepine like clonazepam for better coverage throughout the day of her anxiety. [facility] Medical History (Updated 10/18/23 @ 11:58 by Nick Gomez PA-C) Constipation LLQ abdominal pain Anxiety Breast cancer screening Breast pain, left Elevated vitamin B12 level Neck muscle spasm Strain of neck muscle Low back pain Pubic ramus fracture Sore throat Skin tear of upper arm without complication Head injury, acute, without loss of consciousness Fall Dizziness Medication noncompliance due to cognitive impairment RLQ abdominal pain Sinusitis Flu syndrome Precordial chest pain Atypical chest pain Cold intolerance Former smoker Pulmonary nodule Abnormal lung sounds Fever Bilateral calf pain Nausea Left lower quadrant abdominal pain Dysuria Fatigue Heart palpitations Lower extremity weakness HTN (hypertension) Aortic stenosis Obstipation Dark stools Lower abdominal pain Gastroenteritis Neck pain on right side URI (upper respiratory infection) Back pain Cough Chest pain Rhinitis Elevated BP without diagnosis of hypertension Non-rheumatic aortic stenosis Diverticulitis GERD (gastroesophageal reflux disease) Cat scratch Cat bite Epigastric discomfort Diarrhea Nausea Viral syndrome GERD (gastroesophageal reflux disease) Neuropathy Arthritis GERD (gastroesophageal reflux disease) HTN (hypertension) Irritable bowel Heart murmur Surgical History S/P TAVR (transcatheter aortic valve replacement) Hx of esophagogastroduodenoscopy Hx of colonoscopy History of tonsillectomy History of appendectomy Family History Father No problems noted. Mother No problems noted. Social History Household Members: Children Housing: House Are you a primary early breastfeeding care specialist to a significant other at home: No Do you presently have visiting nurse or other home services: No Alcohol intake: never Patient Tobacco Use Status: Former Tobacco user Quit Date: 2013 Tobacco use type: Cigarette e-Cigarette/Vaping Use: Never Used Second Hand Smoke Exposure: No Advance Directives Date on File: 03/28/23 service: No Current occupational status: retired Cognitive needs: No Hearing needs: No Vision needs: Yes (glasses) Questionnaire Thrive Questionnaire Date Thrive assessed: 09/27/23 PAIGE-7 AMB Questionnaire PAIGE-7 Date PAIGE - 7 assessed: 01/24/24 Source: Developed by Drs. Anatoliy Gavin, Peyton Hunt, Austyn Weber and colleagues, with an educational kentrell from [employer]. Review of Systems Const Denies headache(s) Eyes Denies loss of vision ENT Denies vertigo, Denies dizziness, Denies headache(s) and Denies sore throat Card Denies chest pain, Denies leg edema and Denies lightheadedness Resp Denies cough, Denies hemoptysis and Denies wheezing GI Reports abdominal pain, Reports belching and Reports constipation Denies urinary frequency, Denies dysuria and Denies urinary urgency Musc Denies arthralgias, Denies joint swelling, Denies numbness and Denies tingling Neuro Denies Abnormal speech present, Denies behavioral changes, Denies vertigo, Denies dizziness, Denies headache(s), Denies loss of vision, Denies memory loss, Denies numbness and Denies tingling Psych Denies anxiety, Denies behavioral changes, Denies depression, Denies memory loss and Denies panic attacks Pradip/Lymph Denies easy bleeding and Denies easy bruising Aller/Immun Denies wheezing Physical exam (Primary Care) Vital Signs: Last Vital Signs Pulse 85 10/18/23 11:31 BP 152/72 H 10/18/23 11:31 Pulse Ox 96 10/18/23 11:31 Oxygen Delivery Method Room Air 10/18/23 11:31 BMI result Body Mass Index 27.7 Tobacco/Smoking Status: Tobacco use Status Tobacco use date assessed 09/27/23 10/18/23 11:31 Patient Tobacco Use Status Former Tobacco user 10/18/23 11:31 Tobacco use type Cigarette 10/18/23 11:31 e-Cigarette/Vaping Use Never Used 10/18/23 11:31 Thrive Assessment: Date of Thrive Assessment Date Thrive assessed 09/27/23 10/18/23 11:31 Const General: healthy appearing, no acute distress, alert and awake Nutritional Appearance: well nourished Orientation/consciousness: oriented to person, oriented to place and oriented to time HENMT Ears: TM's normal bilaterally General nose exam: Normal nasal mucous membranes and turbinates present Eyes Conjunctivae: conjunctivae normal Sclerae: sclerae normal Pupils: Equal, round and reactive pupils present Neck Neck: Yes no lymphadenopathy and Yes no JVD Thyroid: Thyroid normal Carotids: no bruits Resp Effort & Inspection: normal respiratory effort and not tachypneic Auscultation: no crackles, no rales, no rhonchi and no wheezes Cardio Rate: regular rate Rhythm: regular rhythm Heart sounds: no murmurs and normal S1 and S2 GI Palpation (GI): Soft to palpation, nontender, no hepatomegaly and no splenomegaly Auscultation: normal bowel sounds Abdomen image: 2 1. TENDERNESS TO PALPATION IN THE AREA OUTLINED. NO NOTABLE PALPABLE LUMPS/MASSES Skin General skin exam: no rashes or lesions noted and dry skin Neuro General: oriented to person, oriented to place and oriented to time Cranial nerves: Yes Equal, round and reactive pupils present Speech: No Abnormal speech present Gait exam (Neuro): Normal gait present Motor exam (neuro): no tremor noted Extrem Right upper extremity: full ROM Left upper extremity: full ROM Right lower extremity: full ROM; no edema Left lower extremity: full ROM; no edema Psych Mental Status: mental status grossly normal Speech and movement: Normal speech and movement present Affect: normal affect Attitude: cooperative Thought process: Normal thought process present Assessment and Plan Assessment & Plan (1) LLQ abdominal pain: Code(s): R10.32 - Left lower quadrant pain Plan: PER HPI PATIENT REPORTING A 2 WEEK HISTORY OF LEFT LOWER QUADRANT ABDOMINAL PAIN. HAS BEEN SEEN AT THE ER SEVERAL TIMES, RECENT CT OF ABDOMEN AND PELVIS WITHOUT ANY ACUTE INTRA ABDOMINAL PATHOLOGY. DOES HAVE DIVERTICULOSIS THOUGH NO DIVERTICULITIS. HAS USED MIRALAX WITH SOME RELIEF OF HER ABDOMINAL PAIN TEMPORARILY. WILL TRY LACTULOSE FOR HIS LAXATIVE AFFECT. ADVISED ON INCREASING HER FLUIDS AND FIBER IN HER DIET. (2) Constipation: Code(s): K59.00 - Constipation, unspecified Qualifiers: Constipation type: slow transit constipation Qualified Code(s): K59.01 - Slow transit constipation Plan: ABOVE (3) S/P AVR: Code(s): Z95.2 - Presence of prosthetic heart valve Plan: Patient is status post aortic valve replacement. Blood pressure your vitals stable. She does have a cardiac event monitor she will be placing on soon to evaluate for AFib (4) Generalized anxiety disorder: Code(s): F41.1 - Generalized anxiety disorder Plan: Continues to have chronic longstanding anxiety. Does use alprazolam on a p.r.n. basis, still speaking with a psychiatrist and a mental health therapist. Medications: New 2 lactulose 20 grams (30 mL) PO DAILY 15 days PRN 900 mL 0RF laxative effect K59.01 - Slow transit constipation Coding Level of Care Code Est Pt Level 4 (82032) Diagnoses LLQ abdominal pain R10.32 Slow transit constipation K59.01 Constipation type: slow transit constipation S/P AVR Z95.2 Generalized anxiety disorder F41.1
== END 2023-10-18 12:24 | disposition home or self-care (01) ==
PROVIDERS: PCP Physician Assistant; Visit Provider Physician Assistant
DX: R10.32 Left lower quadrant pain (principal); K59.01 Slow transit constipation; Z95.2 Presence of prosthetic heart valve; F41.1 Generalized anxiety disorder
CPT/HCPCS: 99214

== ENCOUNTER 2023-10-23 12:49 | Emergency (ER) | payer MEDICARE, OTHER, SELFPAY ==
--- NOTE | ~2023-10-23 | XR_ITS ---
Examination: Chest and abdomen. Clinical indications: Productive cough. Constipation. COMPARISON: CT abdomen 10/11/2023. Chest x-ray 10/04/2023: Chest one view. Abdomen 2 views. FINDINGS: CHEST: The lungs are hyperexpanded but clear of acute pneumonic process. Small nodules are visualized in the right lower lobe. Heart size and pulmonary vascularity is normal. There is no pleural effusion or thickening. ABDOMEN: There are small air-fluid levels in the abdomen, nonspecific. There is no free air or free fluid. No organomegaly. No gross bony abnormality. XR/XR abdomen min 2V IMPRESSION: 1. Hyperexpanded lungs without acute process. 2. Small micronodules right lower lobe, stable to last exam. 3. Small air-fluid levels, nonspecific likely generalized ileus. No free air visualized..
--- NOTE | ~2023-10-23 | XR_ITS ---
Examination: Chest and abdomen. Clinical indications: Productive cough. Constipation. COMPARISON: CT abdomen 10/11/2023. Chest x-ray 10/04/2023: Chest one view. Abdomen 2 views. FINDINGS: CHEST: The lungs are hyperexpanded but clear of acute pneumonic process. Small nodules are visualized in the right lower lobe. Heart size and pulmonary vascularity is normal. There is no pleural effusion or thickening. ABDOMEN: There are small air-fluid levels in the abdomen, nonspecific. There is no free air or free fluid. No organomegaly. No gross bony abnormality. XR/XR chest 1V IMPRESSION: 1. Hyperexpanded lungs without acute process. 2. Small micronodules right lower lobe, stable to last exam. 3. Small air-fluid levels, nonspecific likely generalized ileus. No free air visualized..
[2023-10-23 13:53] VITALS: BP 191/92; PULSE 90; RESP 16; TEMP 36.9; O2SAT 96; BMI 27.5
--- NOTE | 2023-10-23 13:56 | ECG_ITS ---
Test Reason : HTN Blood Pressure : / mmHG Vent. Rate : 083 BPM Atrial Rate : 083 BPM P-R Int : 210 ms QRS Dur : 096 ms QT Int : 380 ms P-R-T Axes : 060 -10 033 degrees QTc Int : 446 ms Sinus rhythm with 1st degree A-V block Possible Left atrial enlargement Borderline ECG When compared with ECG of 09-OCT-2023 11:02, No significant change was found Referred By: Generic ED Physician Electronically Signed By:MICHEL CHARLES MD
[2023-10-23 14:33] LABS: MANUAL DIFF FLAG NO
[2023-10-23 14:36] LABS: Appearance Urine Clear; Color Urine Yellow; Glucose Urine UA Negative (Negative); Leukocyte Esterase Urine Small (1+) (Negative); Nitrite Urine Negative (Negative); PH 5.5 (5.0-9.0); Specific Gravity - Urine 1.015 (1.005-1.025); UMIC TRIGGER UACC YES; Urine Blood Negative (Negative); Urine Ketones Negative (Negative); Urine Protein Negative (Neg-Trace)
[2023-10-23 14:37] LABS: Eosinophils Absolute Auto 0.1 X10*3/uL (0.0-0.4); Hematocrit 31.9 % (37.0-47.0); Imm Gran Abs Auto 0.02 X10*3/uL (0.00-0.03); Imm Gran Pct Auto 0.5 % (0.0-0.4); Lymphocytes Absolute Auto 0.6 X10*3/uL (1.2-4.9); Lymphocytes Percent Auto 14.3 % (20-40); Mean Corpuscular HGB Conc 31.3 g/dl (31.0-35.0); Mean Corpuscular Volume 92.5 fL (80.0-98.0); Mean Platelet Volume 12.1 fL (9.4-12.3); Monocytes Absolute Auto 0.3 X10*3/uL (0.1-1.2); Monocytes Percent Auto 6.7 % (2-11); Neutrophils Absolute Auto 3.1 x10*3/uL (2.0-8.3); Neutrophils Percent Auto 75.5 % (45-73); Platelet Count 121 X10*3/uL (160-400); Red Blood Count 3.45 X10*6/uL (4.20-5.50); White Blood Count 4.1 X10*3/uL (4.8-10.8)
[2023-10-23 14:45] LABS: Bacteria Urine None Seen (None Seen); Hyaline Casts Urine 0-2 /LPF (0-2); RBC Urine 0-2 /HPF (0-2); Squamous Epithelial Cell Urine 0-2 /HPF (0-2); UACC Culture Trigger YES; WBC Urine 0-5 /HPF (0-5)
[2023-10-23 14:58] LABS: Alanine Aminotransferase 46 U/L (0-31); Albumin Level 4.2 g/dL (3.5-5.0); Alkaline Phosphatase 269 U/L (39-117); Anion Gap 12 (12-20); Aspartate Amino Transferase 32 U/L (5-31); Bilirubin Total 0.7 mg/dL (0.0-1.0); Blood Urea Nitrogen 11 mg/dL (9-16); Carbon Dioxide 30 mmol/L (22-29); Chloride 102 mmol/L (96-108); Creatinine Clr Calc Pharmacy 55.9; Estimated Glomerular Filt Rate > 60; Glucose Random 99 mg/dL (60-115); Potassium 4.9 mmol/L (3.3-5.1); Sodium 139 mmol/L (135-145); Total Protein 7.2 g/dL (6.5-8.0)
[2023-10-23 15:05] LABS: Troponin-I High Sensitivity 4.6 ng/L (<3.5-17.0)
[2023-10-23 15:13] LABS: Influenza A PCR NEGATIVE (Negative); Influenza B PCR NEGATIVE (Negative); Resp Syncy Virus RNA Qual PCR NEGATIVE (Negative); SARS COV2 PCR INHOUSE NEGATIVE (Negative)
--- NOTE | 2023-10-23 15:27 | ED_ITS ---
HPI - Nausea/Vomiting/Diarrhea General Chief complaint: Nausea/Vomiting/Diarrhea Stated complaint: HBP Time Seen by Provider: 10/23/23 19:02 Source: patient Mode of arrival: ambulatory History of Present Illness HPI Narrative: 83-year-old female with consistent and chronic complaints of nausea abdominal discomfort and constipation, patient states that she called her operating room tech who directed her to start using MiraLax and she states that her stool has improved and become more soft in nature, she reports she continues to pass flatus and has some concerns about her elevated blood pressure although she takes her medications in the morning. Related Data Home Medications Medication Instructions Recorded Confirmed acetaminophen 500 mg tablet 1,000 mg PO Q6H PRN Pain 03/28/23 10/18/23 alprazolam 0.25 mg tablet 0.25 mg PO BID PRN Anxiety 03/28/23 10/18/23 ondansetron HCl 4 mg tablet 4 mg PO Q8H PRN Nausea 03/28/23 10/18/23 docusate sodium 100 mg capsule 100 mg PO DAILY 09/27/23 10/18/23 cholecalciferol (vitamin D3) 25 25 mcg PO DAILY 10/11/23 10/18/23 mcg (1,000 unit) tablet folic acid 1 mg tablet 1 mg PO DAILY 10/11/23 10/18/23 polyethylene glycol 3350 17 17 g PO DAILY PRN Constipation 10/11/23 10/18/23 gram/dose oral powder (Miralax) atorvastatin 40 mg tablet 40 mg PO DAILY 10/18/23 10/18/23 coenzyme Q10 100 mg capsule 100 mg PO DAILY PRN 10/18/23 10/18/23 Previous Rx's Medication Instructions Recorded cyanocobalamin (vitamin B-12) 1,000 mcg PO DAILY #30 tabs 05/22/23 1,000 mcg tablet (Vitamin B-12) hydroxyzine HCl 25 mg tablet 25 mg PO TID PRN itching #10 tabs 07/21/23 fluticasone propionate 50 2 spray intranasal DAILY #16 grams 08/14/23 mcg/actuation nasal spray,suspension aspirin 81 mg tablet,delayed 81 mg PO DAILY #30 tabs 10/13/23 release lactulose 20 gram/30 mL oral 20 g (30 mL) PO DAILY PRN laxative 10/18/23 solution effect 15 days #900 mL clopidogrel 75 mg tablet 75 mg PO DAILY #30 tabs 10/22/23 pantoprazole 40 mg tablet,delayed 40 mg PO DAILY #30 tabs 10/22/23 release citalopram 20 mg tablet 20 mg PO BEDTIME 90 days #90 tabs 10/23/23 Allergies Allergy/AdvReac Type Severity Reaction Status Date / Time buspirone Allergy Intermediate Rash Verified 10/23/23 13:52 Sulfa (Sulfonamide Allergy Intermediate RASH Verified 10/23/23 13:52 Antibiotics) garlic [GARLIC] Allergy Unknown PER H&P Verified 10/23/23 13:52 metronidazole [From FLAGYL] Allergy Unknown OCULAR Verified 10/23/23 13:52 MIGRAINES penicillamine Allergy Unknown Unknown Verified 10/23/23 13:52 ciprofloxacin AdvReac Intermediate neuropathic Verified 10/23/23 13:52 pain lisinopril AdvReac Intermediate Cough Verified 10/23/23 13:52 nitrofurantoin AdvReac Mild GI side Verified 10/23/23 13:52 effects cefuroxime Allergy Intermediate wheezy Uncoded 10/23/23 13:52 cough/itch environmental Allergy Unknown Unknown Uncoded 10/23/23 13:52 flagyl Allergy Unknown Unknown Uncoded 10/23/23 13:52 From KEFLEX Allergy Unknown RASH Uncoded 10/23/23 13:52 Metoprolol Tartrate Allergy Unknown Unknown Uncoded 10/23/23 13:52 Sulfacet-R Allergy Unknown Unknown Uncoded 10/23/23 13:52 Review of Systems 2 Review of Systems: Pertinent positives and negatives as stated in [facility] Past Medical History Source: nursing notes reviewed Medical History (Updated 10/23/23 @ 20:51 by Danii Burns MD) Constipation LLQ abdominal pain Anxiety Breast cancer screening Breast pain, left Elevated vitamin B12 level Neck muscle spasm Strain of neck muscle Low back pain Pubic ramus fracture Sore throat Skin tear of upper arm without complication Head injury, acute, without loss of consciousness Fall Dizziness Medication noncompliance due to cognitive impairment RLQ abdominal pain Sinusitis Flu syndrome Precordial chest pain Atypical chest pain Cold intolerance Former smoker Pulmonary nodule Abnormal lung sounds Fever Bilateral calf pain Nausea Left lower quadrant abdominal pain Dysuria Fatigue Heart palpitations Lower extremity weakness HTN (hypertension) Aortic stenosis Obstipation Dark stools Lower abdominal pain Gastroenteritis Neck pain on right side URI (upper respiratory infection) Back pain Cough Chest pain Rhinitis Elevated BP without diagnosis of hypertension Non-rheumatic aortic stenosis Diverticulitis GERD (gastroesophageal reflux disease) Cat scratch Cat bite Epigastric discomfort Diarrhea Nausea Viral syndrome GERD (gastroesophageal reflux disease) Neuropathy Arthritis GERD (gastroesophageal reflux disease) HTN (hypertension) Irritable bowel Heart murmur Surgical History S/P TAVR (transcatheter aortic valve replacement) Hx of esophagogastroduodenoscopy Hx of colonoscopy History of tonsillectomy History of appendectomy Family History Family History Father No problems noted. Mother No problems noted. Social History Social History Household Members: Children Housing: House Are you a primary pharmacy care coordinator to a significant other at home: No Do you presently have visiting nurse or other home services: No Alcohol intake: never Patient Tobacco Use Status: Former Tobacco user Quit Date: 2013 Tobacco use type: Cigarette e-Cigarette/Vaping Use: Never Used Second Hand Smoke Exposure: No Use of substances other than those prescribed or required for medical reasons: No Advance Directives: Yes Advance Directives on File: Yes Advance Directives Date on File: 03/28/23 service: No Current occupational status: retired Cognitive needs: No Hearing needs: No Vision needs: Yes (glasses) Physical Exam 2 Vital Signs: Vital Signs: Last Vital Signs Temp 98.4 F 10/23/23 19:27 Pulse 79 10/23/23 19:27 Resp 16 10/23/23 19:27 BP 177/75 H 10/23/23 19:27 Pulse Ox 98 10/23/23 19:27 O2 Del Method Room Air 10/23/23 19:27 BMI result Body Mass Index 27.5 VITAL SIGNS: Reviewed. GENERAL: Well developed, well nourished, in no acute distress. HEAD: Normocephalic/atraumatic EYES: PERRLA, EOMI EARS: Ext canals without abnormality NOSE: Nares patent bilateral OROPHARYNX: no oral lesions noted, posterior pharynx clear NECK: Supple, no adenopathy LUNGS: Normal breath sounds. No adventitious sounds or accessory muscle use. SpO2<98> CARDIOVASCULAR: Regular rate and rhythm without noted murmurs ABDOMEN: Soft, non-tender, non-distended with bowel sounds. MUSCULOSKELETAL: No tenderness, deformities, or effusions noted on gross inspection. EXTREMITIES: No cyanosis, clubbing or edema. SKIN: Inspection of the skin reveals no rashes NEUROLOGIC: Alert and oriented x 4. Strength and sensation to light touch were grossly intact x 4. Course Course Course Narrative: RME: 83 year-old F w/ PMHx atypical chest pain, GERD, HTN, irritable bowel, diverticulitis, presenting to the ED c/o productive cough, chills, nausea, LLQ abd pain, constipation, last BM 2 days ago. Passing flatus yesterday EKG, Labs, UA, viral testing, Abd XR ordered Full HPI, ROS and PE to be performed by primary ED provider. Medical Decision Making Medical Decision Making [facility] Narrative: 83-year-old female with history and clinical presentation of frequent ED visits for similar symptoms, she has had multiple workups, extensive in nature, to include imaging studies, she otherwise appears well. I reviewed all investigations today and her hematologic indices are grossly stable and chronic in nature with a mild leukopenia/normocytic anemia/thrombocytopenia. Chemistry indices without AARON or electrolyte derangements and patient has chronically elevated AST there is mild bump in ALT as well as alkaline phosphatase, I sensitivity troponin is chronically detectable. Urinalysis is negative for UTI or hematuria. Viral testing is negative for influenza/RSV/COVID. Chest x-ray negative for evidence of infiltrative venous congestion and otherwise my interpretation is in agreement with radiology's impression. KUB did demonstrate small air-fluid levels, however patient has no obstructive symptoms and continues to pass gas and low clinical suspicion that mild nausea is associated with these radiologic findings. My interpretation is that patient has some chronicity to the abdominal discomfort and nausea, may explore outpatient ultrasound of gallbladder although a few CT scans were negative for any evidence to suggest acute cholecystitis, patient has no leukocytosis, she remains afebrile and abdominal exam is benign. Patient is otherwise discharged home. Differential Diagnosis Differential Diagnoses: The differential diagnosis associated with the presentation includes Please see the discussion above Admission/Observation Consideration of admission/observation: Escalation of care including admission/observation considered Please see the discussion above Lab Data [facility] Lab Attestation statement: I reviewed the patient's lab results. Please see the discussion above 10/23/23 14:24 10/23/23 14:24 Labs: Lab Results 10/23/23 Range/Units 14:24 WBC 4.1 L (4.8-10.8) X10*3/uL RBC 3.45 L (4.20-5.50) X10*6/uL Hgb 10.0 L (12.0-16.0) g/dl Hct 31.9 L (37.0-47.0) % MCV 92.5 (80.0-98.0) fL MCH 29.0 (27.0-33.0) pg MCHC 31.3 (31.0-35.0) g/dl RDW 14.0 (11.0-16.0) % Plt Count 121 L (160-400) X10*3/uL MPV 12.1 (9.4-12.3) fL Immature Gran % (Auto) 0.5 H (0.0-0.4) % Neut % (Auto) 75.5 H (45-73) % Lymph % (Auto) 14.3 L (20-40) % Smyth % (Auto) 6.7 (2-11) % Eos % (Auto) 2.0 (0-4) % Baso % (Auto) 1.0 (0-2) % Lymph # (Auto) 0.6 L (1.2-4.9) X10*3/uL Smyth # (Auto) 0.3 (0.1-1.2) X10*3/uL Eos # (Auto) 0.1 (0.0-0.4) X10*3/uL Baso # (Auto) 0.0 (0.0-0.2) X10*3/uL Abs Immat Gran (auto) 0.02 (0.00-0.03) X10*3/uL Absolute Neuts (auto) 3.1 (2.0-8.3) x10*3/uL Absolute Nucleated RBC 0.000 (0.0-0.012) X10*3/uL Nucleated RBC % (auto) 0.0 (0.0-0.2) /100WBC Sodium 139 (135-145) mmol/L Potassium 4.9 D (3.3-5.1) mmol/L Chloride 102 (96-108) mmol/L Carbon Dioxide 30 H (22-29) mmol/L Anion Gap 12 (12-20) BUN 11 (9-16) mg/dL Creatinine 0.80 (0.5-1.4) mg/dL Estim Creat Clear Calc 55.9 Estimated GFR > 60 Random Glucose 99 (60-115) mg/dL Calcium 10.0 (8.4-10.2) mg/dL Magnesium 1.9 (1.6-2.6) mg/dL Total Bilirubin 0.7 (0.0-1.0) mg/dL AST 32 H (5-31) U/L ALT 46 H (0-31) U/L Alkaline Phosphatase 269 H (39-117) U/L Troponin I High Sens 4.6 (<3.5-17.0) ng/L Total Protein 7.2 (6.5-8.0) g/dL Albumin 4.2 (3.5-5.0) g/dL Lipase 12 (8-78) U/L Urine Color Yellow Urine Appearance Clear Urine pH 5.5 (5.0-9.0) Ur Specific [place] 1.015 (1.005-1.025) Urine Protein Negative (Neg-Trace) mg/dL Urine Glucose (UA) Negative (Negative) mg/dL Urine Ketones Negative (Negative) mg/dL Urine Blood Negative (Negative) Urine Nitrite Negative (Negative) Ur Leukocyte Esterase Small (1+) H (Negative) Urine RBC 0-2 (0-2) /HPF Urine WBC 0-5 (0-5) /HPF Ur Squamous Epith Cells 0-2 (0-2) /HPF Urine Bacteria None Seen (None Seen) Hyaline Casts 0-2 (0-2) /LPF Influenza Type A (PCR) NEGATIVE (Negative) Influenza Type B (PCR) NEGATIVE (Negative) RSV RNA Qual (PCR) NEGATIVE (Negative) SARS-CoV-2 RNA (RT-PCR) NEGATIVE (Negative) Independent Interpretation I performed an independent interpretation of an: EKG Interpretation: Sinus rhythm with first-degree AV block, HR-83, no STEMI, QRS/QTC is within normal limits Radiology Impression Discussion of test interpretation with radiology: I have reviewed the radiologist's reading. Radiologist Impression: Please see the discussion above External Record Review External record reviewed: Outpatient record, Prior outpatient labs and Prior outpatient radiology Chronic Conditions Patient?s care impacted by: Hypertension Critical Care Time Critical Care Time Critical Care Time: Yes Total Critical Care Time: 45 Attestation: I personally attest to this time spent taking care of the patient. Discharge Plan Discharge Clinical Impression: Chronic nausea, Abdominal discomfort Patient Disposition: Home, Self-Care Instructions: Constipation (ED), High Fiber Diet (ED) Additional Instructions: 1. Resume all home medications as prescribed. 2. Recommend that you stop taking that MiraLax unless you develop hard stool once again. 3. Please follow-up with your primary care doctor at your earliest convenience. Return to the ER for any worsening symptoms. Prescriptions: No Action cyanocobalamin (vitamin B-12) [Vitamin B-12] 1,000 mcg tablet 1,000 mcg PO DAILY Qty: 30 3RF fluticasone propionate 50 mcg/actuation spray,suspension 2 spray intranasal DAILY Qty: 16 0RF aspirin 81 mg tablet,delayed release (DR/EC) 81 mg PO DAILY Qty: 30 0RF clopidogrel 75 mg tablet 75 mg PO DAILY Qty: 30 0RF pantoprazole 40 mg tablet,delayed release (DR/EC) 40 mg PO DAILY Qty: 30 0RF citalopram 20 mg tablet 20 mg PO BEDTIME 90 Days Qty: 90 1RF ondansetron HCl 4 mg tablet 4 mg PO Q8H PRN (Reason: Nausea) alprazolam 0.25 mg tablet 0.25 mg PO BID PRN (Reason: Anxiety) acetaminophen 500 mg Tablet 1,000 mg PO Q6H PRN (Reason: Pain) folic acid 1 mg Tablet 1 mg PO DAILY polyethylene glycol 3350 [Miralax] 17 gram/dose Powder 17 g PO DAILY PRN (Reason: Constipation) cholecalciferol (vitamin D3) 25 mcg (1,000 unit) Tablet 25 mcg PO DAILY coenzyme Q10 100 mg capsule 100 mg PO DAILY PRN atorvastatin 40 mg tablet 40 mg PO DAILY lactulose 20 gram/30 mL solution 20 g PO DAILY PRN (Reason: laxative effect) 15 Days Qty: 900 0RF hydroxyzine HCl 25 mg tablet 25 mg PO TID PRN (Reason: itching) Qty: 10 0RF docusate sodium 100 mg capsule 100 mg PO DAILY Referrals: Nick Gomez PA-C [Primary Care Provider] -
[2023-10-23 15:50] LABS: Lipase 12 U/L (8-78); Magnesium 1.9 mg/dL (1.6-2.6)
[2023-10-23 18:44] VITALS: BP 177/84; PULSE 82; RESP 16; TEMP 36.7; O2SAT 99
[2023-10-23 19:27] VITALS: BP 177/75; PULSE 79; RESP 16; TEMP 36.9; O2SAT 98
[2023-10-23] MEDS: Famotidine 20 MG TABLET PO (21:36)
[2023-10-23 21:43] VITALS: BP 164/73; PULSE 83; RESP 16; TEMP 36.7; O2SAT 96
== END 2023-10-23 21:46 | disposition home or self-care (01) ==
PROVIDERS: Physician Assistant; Emergency Provider Student in an Organized Health Care Education/Training Program; PCP Physician Assistant
DX: R11.2 Nausea with vomiting, unspecified (principal); R10.30 Lower abdominal pain, unspecified; I44.0 Atrioventricular block, first degree; Z79.899 Other long term (current) drug therapy; Z87.891 Personal history of nicotine dependence; Z20.828 Contact with and (suspected) exposure to other viral communicable diseases; Z11.52 Encounter for screening for COVID-19
CPT/HCPCS: 0241U; 36415; 71045; 74019; 80053; 81001; 83690; 83735; 84484; 85025; 87086; 93005; 99283; 99285

== ENCOUNTER → 2023-10-23 13:56 | Outpatient (BNV) | payer MEDICARE, OTHER, SELFPAY | PROVIDERS: Emergency Provider Student in an Organized Health Care Education/Training Program; PCP Physician Assistant; Visit Provider Internal Medicine Cardiovascular Disease | DX: I10 Essential (primary) hypertension (principal) | CPT/HCPCS: 93010 ==

== ENCOUNTER 2023-10-28 10:52 | Outpatient (AMB) | payer MEDICARE, OTHER, SELFPAY ==
--- NOTE | 2023-10-28 10:57 | AM.OFFWIN_ITS ---
Intake Vital Signs 10/28/23 11:00 Height 5 ft 6 in Weight 170 lb BMI 27.4 BP 116/68 Blood Pressure Location Rt brachial Position Sitting Pulse 94 Pulse Source Pulse Oximeter Temp 98.2 F Temp Source Oral Pulse Oximetry (%) 97 Oxygen Delivery Method Room Air Intake Visit Reasons: EP UTI Intake Note: Patient here for UTI, states she has been experiencing lower abdomen pain,has been incontinent and has had on and off chills and has recently developed burning constantly starting this morning Pt states she has been dealing with this for some time now . Patient Tobacco Use Status: Former Tobacco user Quit Date: 2013 Allergies buspirone Allergy (Intermediate, Verified 10/23/23 13:52) Rash Sulfa (Sulfonamide Antibiotics) Allergy (Intermediate, Verified 10/23/23 13:52) RASH garlic [GARLIC] Allergy (Unknown, Verified 10/23/23 13:52) PER H&P metronidazole [From FLAGYL] Allergy (Unknown, Verified 10/23/23 13:52) OCULAR MIGRAINES penicillamine Allergy (Unknown, Verified 10/23/23 13:52) Unknown ciprofloxacin Adverse Reaction (Intermediate, Verified 10/23/23 13:52) neuropathic pain lisinopril Adverse Reaction (Intermediate, Verified 10/23/23 13:52) Cough nitrofurantoin Adverse Reaction (Mild, Verified 10/23/23 13:52) GI side effects cefuroxime Allergy (Intermediate, Uncoded 10/23/23 13:52) wheezy cough/itch environmental Allergy (Unknown, Uncoded 10/23/23 13:52) Unknown flagyl Allergy (Unknown, Uncoded 10/23/23 13:52) Unknown From KEFLEX Allergy (Unknown, Uncoded 10/23/23 13:52) RASH Metoprolol Tartrate Allergy (Unknown, Uncoded 10/23/23 13:52) Unknown Sulfacet-R Allergy (Unknown, Uncoded 10/23/23 13:52) Unknown Do you need a note to return to daycare/school/sports/work: No HPI HPI Comments History of Present Illness Details She presents to office with concern of UTI She said lower abdominal pain; was having similar symptoms 10/08/23 and given augmentin but told to stop because culture negative LLQ (seen by pcp on 10/14 for similar pain with diagnosis of constipation) Went to ER 10/23/23 and diagnosed with abdominal pain with negative work up; has been seen multple times for abdominal pain Has a GI MD which she hasn called recently SHe said intermittent pain x 1 week but pain constant x 2 days Pain level is 8/10 She has tried no specific medicine for it Last bowel movement 2-3 days ago. + passing gas No CP or SOB No vomiting or fever PFSH Medical History (Updated 10/28/23 @ 12:15 by Noris Mercedes PA-C) Constipation LLQ abdominal pain Anxiety Breast cancer screening Breast pain, left Elevated vitamin B12 level Neck muscle spasm Strain of neck muscle Low back pain Pubic ramus fracture Sore throat Skin tear of upper arm without complication Head injury, acute, without loss of consciousness Fall Dizziness Medication noncompliance due to cognitive impairment RLQ abdominal pain Sinusitis Flu syndrome Precordial chest pain Atypical chest pain Cold intolerance Former smoker Pulmonary nodule Abnormal lung sounds Fever Bilateral calf pain Nausea Left lower quadrant abdominal pain Dysuria Fatigue Heart palpitations Lower extremity weakness HTN (hypertension) Aortic stenosis Obstipation Dark stools Lower abdominal pain Gastroenteritis Neck pain on right side URI (upper respiratory infection) Back pain Cough Chest pain Rhinitis Elevated BP without diagnosis of hypertension Non-rheumatic aortic stenosis Diverticulitis GERD (gastroesophageal reflux disease) Cat scratch Cat bite Epigastric discomfort Diarrhea Nausea Viral syndrome GERD (gastroesophageal reflux disease) Neuropathy Arthritis GERD (gastroesophageal reflux disease) HTN (hypertension) Irritable bowel Heart murmur Surgical History S/P TAVR (transcatheter aortic valve replacement) Hx of esophagogastroduodenoscopy Hx of colonoscopy History of tonsillectomy History of appendectomy Family History Father No problems noted. Mother No problems noted. Social History Household Members: Children Housing: House Are you a primary acute care occupational therapist to a significant other at home: No Do you presently have visiting nurse or other home services: No Alcohol intake: never Patient Tobacco Use Status: Former Tobacco user Quit Date: 2013 Tobacco use type: Cigarette e-Cigarette/Vaping Use: Never Used Second Hand Smoke Exposure: No Advance Directives Date on File: 03/28/23 service: No Current occupational status: retired Cognitive needs: No Hearing needs: No Vision needs: Yes (glasses) Review of Systems Const Denies chills and Denies fever(s) ENT Denies nasal congestion Card Denies chest pain and Denies dyspnea Resp Denies cough and Denies dyspnea GI Reports abdominal pain, Reports constipation, Denies diarrhea, Denies nausea and Denies vomiting Denies hematuria, Reports dysuria (pressure lower/suprapubic), Reports urinary incontinence (baseline, sometimes she needs to wear depends), Denies urinary hesitancy and Denies urinary urgency Physical Exam Vital Signs: Last Vital Signs Temp 98.2 F 10/28/23 11:00 Pulse 94 10/28/23 11:00 BP 116/68 10/28/23 11:00 Pulse Ox 97 10/28/23 11:00 Oxygen Delivery Method Room Air 10/28/23 11:00 BMI result Body Mass Index 27.4 General: Non-toxic, NAD. Speaking full sentences. Skin: Warm dry throughout Eye: EOMI Respiratory: CTA bilaterally. No wheezes, rales or rhonchi Cardiac: RRR. No murmur Abdominal: BS present. No rebound or guarding. No specific RLQ or LLQ tenderness to palpation. + minimal suprapubic tenderness. No CVAT MSK: Full ROM extremities. Neurology: A/O. No aphasia or facial droop. Gait without abnormality Psych: Good mood and affect Results AMB Urinalysis, Automated UA Leukoctes 70 Adriane/uL Last Edit by ISATU Aguirre on 10/28/23 11:4 6 UA Nitrite Negative Last Edit by ISATU Aguirre on 10/28/23 11:46 UA Urobilinogen 0.2 mg/dL Last Edit by ISATU Aguirre on 10/28/23 11:46 UA Protein 0 mg/dL Last Edit by ISATU Aguirre on 10/28/23 11:46 UA pH 5.5 Last Edit by ISATU Aguirre on 10/28/23 11:46 UA Blood 0 Larry/uL Last Edit by ISATU Aguirre on 10/28/23 11:46 UA Specific [place] 1.015 Last Edit by ISATU Aguirre on 10/28/23 11:46 UA Ketone Negative Last Edit by ISATU Aguirre on 10/28/23 11:46 UA Bilirubin 0 mg/dL Last Edit by ISATU Aguirre on 10/28/23 11:46 UA Glucose 0 mg/dL Last Edit by ISATU Aguirre on 10/28/23 11:46 Results Reviewed Results Reviewed: Laboratory Last Values Urine pH (Auto) 5.5 10/28/23 11:45 Specific [place] (Auto) 1.015 10/28/23 11:45 Urine Protein (Auto) 0 mg/dL 10/28/23 11:45 Glucose (UA)(Auto) 0 mg/dL 10/28/23 11:45 Urine Ketones (Auto) Negative 10/28/23 11:45 Urine Blood (Auto) 0 Larry/uL 10/28/23 11:45 Urine Nitrite (Auto) Negative 10/28/23 11:45 Urine Bilirubin (Auto) 0 mg/dL 10/28/23 11:45 Urine Urobilinogen (Auto) 0.2 mg/dL 10/28/23 11:45 Leukocyte Esterase (Auto) 70 Adriane/uL 10/28/23 11:45 Assessment & Plan Assessment & Plan (1) Urinary tract infection: Code(s): N39.0 - Urinary tract infection, site not specified Qualifiers: Urinary tract infection type: acute cystitis Hematuria presence: without hematuria Qualified Code(s): N30.00 - Acute cystitis without hematuria Plan: Pt seen and evaluated Non-toxic appearing with stable vital signs She has + 70 leuks in urine Will send culture She has 13 tables of augmentin from 10/08 on hand infront of me and I advised she start again and if told culture negative can d/c The most imprortant thing for chronic abdominal pain is seeing PCP and GI She will call them on monday Long discussion had with pt is anythign worsens to go to ED She expressed verbal understanding and had no additional questions at time of d/c Orders: Orders AMB Urinalysis Automated Today Z13.9 - Encounter for screening, unspecified Urine Culture Today N39.0 - Urinary tract infection, site not specified Coding Level of Care Code Est Pt Level 3 (54895) Diagnoses Acute cystitis without hematuria N30.00 Urinary tract infection type: acute cystitis Hematuria presence: without hematuria
[2023-10-28 11:00] VITALS: BP 116/68; PULSE 94; TEMP 36.8; O2SAT 97; BMI 27.4
== END 2023-10-28 12:29 | disposition home or self-care (01) ==
PROVIDERS: PCP Physician Assistant; Visit Provider Physician Assistant
DX: N30.00 Acute cystitis without hematuria (principal)
CPT/HCPCS: 81003; 99213

== ENCOUNTER 2023-10-28 13:38 | Outpatient (REF) | payer MEDICARE, OTHER, SELFPAY ==
[2023-10-28 13:55] LABS: Appearance Urine Clear; Color Urine Yellow; Glucose Urine UA Negative (Negative); Leukocyte Esterase Urine Moderate (2+) (Negative); Nitrite Urine Negative (Negative); PH 5.5 (5.0-9.0); Specific Gravity - Urine 1.015 (1.005-1.025); UMIC TRIGGER UACC YES; Urine Blood Negative (Negative); Urine Ketones Negative (Negative); Urine Protein Negative (Neg-Trace)
[2023-10-28 14:00] LABS: Bacteria Urine None Seen (None Seen); RBC Urine 0-2 /HPF (0-2); UACC Culture Trigger YES
== END 2023-10-28 13:39 | disposition home or self-care (01) ==
LOC: HO.LNP 13:38
PROVIDERS: Visit Provider Physician Assistant
DX: N39.0 Urinary tract infection, site not specified (principal)
CPT/HCPCS: 81001; 87086

== ENCOUNTER 2023-11-02 09:53 | Outpatient (AMB) | payer MEDICARE, OTHER, SELFPAY ==
[2023-11-02 10:02] VITALS: BP 152/70; PULSE 90; O2SAT 98; BMI 27.0
--- NOTE | 2023-11-02 10:02 | A.OFFPC_ITS ---
Vital Signs 11/02/23 10:02 11/02/23 10:26 Height 5 ft 6 in Weight 167 lb BMI 27.0 BP 152/70 H 140/62 H Blood Pressure Location Lt brachial Position Sitting Pulse 90 Pulse Source Pulse Oximeter Pulse Oximetry (%) 98 Oxygen Delivery Method Room Air Intake Visit Reasons: 2 week f/u Laboratory Animal Care Veterinarian Required: No Accompanied by: Son Allergies buspirone Allergy (Intermediate, Verified 11/02/23 10:06) Rash Sulfa (Sulfonamide Antibiotics) Allergy (Intermediate, Verified 11/02/23 10:06) RASH garlic [GARLIC] Allergy (Unknown, Verified 11/02/23 10:06) PER H&P metronidazole [From FLAGYL] Allergy (Unknown, Verified 11/02/23 10:06) OCULAR MIGRAINES penicillamine Allergy (Unknown, Verified 11/02/23 10:06) Unknown ciprofloxacin Adverse Reaction (Intermediate, Verified 11/02/23 10:06) neuropathic pain lisinopril Adverse Reaction (Intermediate, Verified 11/02/23 10:06) Cough nitrofurantoin Adverse Reaction (Mild, Verified 11/02/23 10:06) GI side effects cefuroxime Allergy (Intermediate, Uncoded 11/02/23 10:02) wheezy cough/itch environmental Allergy (Unknown, Uncoded 11/02/23 10:02) Unknown flagyl Allergy (Unknown, Uncoded 11/02/23 10:02) Unknown From KEFLEX Allergy (Unknown, Uncoded 11/02/23 10:02) RASH Metoprolol Tartrate Allergy (Unknown, Uncoded 11/02/23 10:02) Unknown Sulfacet-R Allergy (Unknown, Uncoded 11/02/23 10:02) Unknown Medication List - Last Reconciled 11/02/23 by Nick Gomez PA-C acetaminophen 1,000 mg PO Q6H PRN alprazolam 0.25 mg PO BID PRN aspirin 81 mg PO DAILY atorvastatin 40 mg PO DAILY cholecalciferol (vitamin D3) 25 mcg PO DAILY citalopram 20 mg PO BEDTIME 90 days clopidogrel 75 mg PO DAILY coenzyme Q10 100 mg PO DAILY PRN cyanocobalamin (vitamin B-12) (Vitamin B-12) 1,000 mcg PO DAILY docusate sodium 100 mg PO DAILY fluticasone propionate 50 mcg/actuation 2 sprays intranasal DAILY folic acid 1 mg PO DAILY hydroxyzine HCl 25 mg PO TID PRN lactulose 20 grams (30 mL) PO DAILY PRN 15 days losartan 25 mg PO DAILY ondansetron HCl 4 mg PO Q8H PRN pantoprazole 40 mg PO DAILY polyethylene glycol 3350 (Miralax) 17 grams PO DAILY PRN Tobacco use date assessed: 09/27/23 Fall risk assessment: No Falls in past year Last assessed Fall Risk: 11/02/23 HPI 2 week f/u HPI Details Patient is an 83-year-old female here today for 2 week follow-up. She again was seen at the ER for abdominal pain and GI discomfort. Was sent for labs and x-rays- x-ray KUB did show air-fluid levels though no obstructive process noted. Her labs did note a chronically elevated AST and ALT. No leukocytosis Recent CT of abdomen pelvis done October 11 without any evidence of acute cystitis. Currently feeling much better having less abdominal pain and using MiraLax on a p.r.n. basis. She reports her bowel movements are now fine. She is now concerned about medications causing her anxiety be worse. She reports since starting Celexa 20 mg she has noted feeling a bit more anxious and shaky in her hands. He does speak with a psychiatrist and wonders if she can reduce her Celexa down to 10 minute. [facility] Medical History Constipation LLQ abdominal pain Anxiety Breast cancer screening Breast pain, left Elevated vitamin B12 level Neck muscle spasm Strain of neck muscle Low back pain Pubic ramus fracture Sore throat Skin tear of upper arm without complication Head injury, acute, without loss of consciousness Fall Dizziness Medication noncompliance due to cognitive impairment RLQ abdominal pain Sinusitis Flu syndrome Precordial chest pain Atypical chest pain Cold intolerance Former smoker Pulmonary nodule Abnormal lung sounds Fever Bilateral calf pain Nausea Left lower quadrant abdominal pain Dysuria Fatigue Heart palpitations Lower extremity weakness HTN (hypertension) Aortic stenosis Obstipation Dark stools Lower abdominal pain Gastroenteritis Neck pain on right side URI (upper respiratory infection) Back pain Cough Chest pain Rhinitis Elevated BP without diagnosis of hypertension Non-rheumatic aortic stenosis Diverticulitis GERD (gastroesophageal reflux disease) Cat scratch Cat bite Epigastric discomfort Diarrhea Nausea Viral syndrome GERD (gastroesophageal reflux disease) Neuropathy Arthritis GERD (gastroesophageal reflux disease) HTN (hypertension) Irritable bowel Heart murmur Surgical History S/P TAVR (transcatheter aortic valve replacement) Hx of esophagogastroduodenoscopy Hx of colonoscopy History of tonsillectomy History of appendectomy Family History Father No problems noted. Mother No problems noted. Social History Household Members: Children Housing: House Are you a primary child daycare worker to a significant other at home: No Do you presently have visiting nurse or other home services: No Alcohol intake: never Patient Tobacco Use Status: Former Tobacco user Quit Date: 2013 Tobacco use type: Cigarette e-Cigarette/Vaping Use: Never Used Second Hand Smoke Exposure: No Advance Directives Date on File: 03/28/23 service: No Current occupational status: retired Cognitive needs: No Hearing needs: No Vision needs: Yes (glasses) Questionnaire Thrive Questionnaire Date Thrive assessed: 09/27/23 PAIGE-7 AMB Questionnaire PAIGE-7 Date PAIGE - 7 assessed: 09/27/23 Source: Developed by Drs. Anatoliy Gavin, Peyton Hunt, Austyn Weber and colleagues, with an educational kentrell from [employer]. Review of Systems Const Denies headache(s) Eyes Denies loss of vision ENT Denies vertigo, Denies dizziness, Denies headache(s) and Denies sore throat Card Denies chest pain, Denies leg edema and Denies lightheadedness Resp Denies cough, Denies hemoptysis and Denies wheezing GI Denies abdominal pain, Denies melena, Denies constipation, Denies diarrhea and Denies vomiting Denies urinary frequency, Denies dysuria and Denies urinary urgency Musc Denies arthralgias, Denies joint swelling, Denies numbness and Denies tingling Neuro Denies Abnormal speech present, Denies behavioral changes, Denies vertigo, Denies dizziness, Denies headache(s), Denies loss of vision, Denies memory loss, Denies numbness and Denies tingling Psych Denies anxiety, Denies behavioral changes, Denies depression, Denies memory loss and Denies panic attacks Pradip/Lymph Denies easy bleeding and Denies easy bruising Aller/Immun Denies wheezing Physical exam (Primary Care) Vital Signs: Last Vital Signs Pulse 90 11/02/23 10:02 BP 140/62 H 11/02/23 10:26 Pulse Ox 98 11/02/23 10:02 Oxygen Delivery Method Room Air 11/02/23 10:02 BMI result Body Mass Index 27.0 Tobacco/Smoking Status: Tobacco use Status Tobacco use date assessed 09/27/23 11/02/23 10:03 Patient Tobacco Use Status Former Tobacco user 11/02/23 10:03 Tobacco use type Cigarette 11/02/23 10:03 e-Cigarette/Vaping Use Never Used 11/02/23 10:03 Thrive Assessment: Date of Thrive Assessment Date Thrive assessed 09/27/23 11/02/23 10:03 Const General: healthy appearing, no acute distress, alert and awake Nutritional Appearance: well nourished Orientation/consciousness: oriented to person, oriented to place and oriented to time HENMT Ears: TM's normal bilaterally General nose exam: Normal nasal mucous membranes and turbinates present Eyes Conjunctivae: conjunctivae normal Sclerae: sclerae normal Pupils: Equal, round and reactive pupils present Neck Neck: Yes no lymphadenopathy and Yes no JVD Thyroid: Thyroid normal Carotids: no bruits Resp Effort & Inspection: normal respiratory effort and not tachypneic Auscultation: no crackles, no rales, no rhonchi and no wheezes Cardio Rate: regular rate Rhythm: regular rhythm Heart sounds: no murmurs and normal S1 and S2 GI Palpation (GI): Soft to palpation, nontender, no hepatomegaly and no splenomegaly Auscultation: normal bowel sounds Skin General skin exam: no rashes or lesions noted and dry skin Neuro General: oriented to person, oriented to place and oriented to time Cranial nerves: Yes Equal, round and reactive pupils present Speech: No Abnormal speech present Gait exam (Neuro): Normal gait present Motor exam (neuro): no tremor noted Extrem Right upper extremity: full ROM Left upper extremity: full ROM Right lower extremity: full ROM; no edema Left lower extremity: full ROM; no edema Psych Mental Status: mental status grossly normal Speech and movement: Normal speech and movement present Affect: normal affect Attitude: cooperative Thought process: Normal thought process present Assessment and Plan Assessment & Plan (1) Anxiety: Code(s): F41.9 - Anxiety disorder, unspecified Plan: Anxiety has been a big issue for her. Continues to speak with a psychiatrist. Continues on alprazolam 0.25 b.i.d. the past 30 years. On Celexa 20 mg which has been increased recently. She wonders if the Celexa 20 mg is a bit too high of a dose causing more anxiety and shakiness in her hands. She would like to reduce her dose down to 10 mg see if anxiety gets better. (2) LLQ abdominal pain: Code(s): R10.32 - Left lower quadrant pain Plan: Has somewhat resolved. Has been keeping in touch intact with her standards analyst and taking MiraLax as needed. (3) S/P AVR: Code(s): Z95.2 - Presence of prosthetic heart valve Plan: Continues on dual anti-platelet therapy and noted some bruising in her extremities. Has no overt signs of heart failure.. 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 S he did have physical therapy coming to home though has completed full course of PT Has upcoming appointment with Cardiology As far as driving patient she is able to drive short distances in town , which may help her mental health getting out of the house and doing activities. Orders: Orders IRON PROFILE Today D50.9 - Iron deficiency anemia, unspecified, D61.818 - Other pancytopenia Vitamin B12 and Folate Today E53.8 - Deficiency of other specified B group vi tamins Lipid Panel Today I63.9 - Cerebral infarction, unspecified Comprehensive Canal [place]. Panel Fast Today Z95.2 - Presence of prosthetic heart valve Complete Blood Count no Diff Today D61.818 - Other pancytopenia Coding Level of Care Code Est Pt Level 4 (13237) Diagnoses Anxiety F41.9 LLQ abdominal pain R10.32 S/P AVR Z95.2
[2023-11-02 10:26] VITALS: BP 140/62
== END 2023-11-02 10:41 | disposition home or self-care (01) ==
PROVIDERS: PCP Physician Assistant; Visit Provider Physician Assistant
DX: F41.9 Anxiety disorder, unspecified (principal); R10.32 Left lower quadrant pain; Z95.2 Presence of prosthetic heart valve
CPT/HCPCS: 99214

== ENCOUNTER 2023-11-06 09:06 | Outpatient (AMB) | payer MEDICARE, OTHER, SELFPAY ==
[2023-11-06 10:20] VITALS: BP 140/80; PULSE 93; TEMP 36.6; O2SAT 96; BMI 26.5
--- NOTE | 2023-11-06 10:20 | AM.OFFWIN_ITS ---
Intake Vital Signs 11/06/23 10:20 Height 5 ft 6 in Weight 164 lb BMI 26.5 BP 140/80 H Blood Pressure Location Lt brachial Position Sitting Pulse 93 Pulse Source Pulse Oximeter Temp 97.9 F Temp Source Temporal Artery Scan Pulse Oximetry (%) 96 Oxygen Delivery Method Room Air Intake Visit Reasons: EP lump RT briceno (lobby) Intake Note: pt is here today for lump rt briceno started 2 days ago Patient Tobacco Use Status: Former Tobacco user Quit Date: 2013 Allergies buspirone Allergy (Intermediate, Verified 11/06/23 10:24) Rash Sulfa (Sulfonamide Antibiotics) Allergy (Intermediate, Verified 11/06/23 10:24) RASH garlic [GARLIC] Allergy (Unknown, Verified 11/06/23 10:24) PER H&P metronidazole [From FLAGYL] Allergy (Unknown, Verified 11/06/23 10:24) OCULAR MIGRAINES penicillamine Allergy (Unknown, Verified 11/06/23 10:24) Unknown ciprofloxacin Adverse Reaction (Intermediate, Verified 11/06/23 10:24) neuropathic pain lisinopril Adverse Reaction (Intermediate, Verified 11/06/23 10:24) Cough nitrofurantoin Adverse Reaction (Mild, Verified 11/06/23 10:24) GI side effects cefuroxime Allergy (Intermediate, Uncoded 11/02/23 10:02) wheezy cough/itch environmental Allergy (Unknown, Uncoded 11/02/23 10:02) Unknown flagyl Allergy (Unknown, Uncoded 11/02/23 10:02) Unknown From KEFLEX Allergy (Unknown, Uncoded 11/02/23 10:02) RASH Metoprolol Tartrate Allergy (Unknown, Uncoded 11/02/23 10:02) Unknown Sulfacet-R Allergy (Unknown, Uncoded 11/02/23 10:02) Unknown Do you need a note to return to daycare/school/sports/work: No HPI HPI Comments History of Present Illness Details 83-year-old female presents today compla ining of hematoma right anterior briceno. She is concerned the blood clot. She has a complicated past medical history and is quite anxious about the changes in her health over the last year. PFSH Medical History Constipation LLQ abdominal pain Anxiety Breast cancer screening Breast pain, left Elevated vitamin B12 level Neck muscle spasm Strain of neck muscle Low back pain Pubic ramus fracture Sore throat Skin tear of upper arm without complication Head injury, acute, without loss of consciousness Fall Dizziness Medication noncompliance due to cognitive impairment RLQ abdominal pain Sinusitis Flu syndrome Precordial chest pain Atypical chest pain Cold intolerance Former smoker Pulmonary nodule Abnormal lung sounds Fever Bilateral calf pain Nausea Left lower quadrant abdominal pain Dysuria Fatigue Heart palpitations Lower extremity weakness HTN (hypertension) Aortic stenosis Obstipation Dark stools Lower abdominal pain Gastroenteritis Neck pain on right side URI (upper respiratory infection) Back pain Cough Chest pain Rhinitis Elevated BP without diagnosis of hypertension Non-rheumatic aortic stenosis Diverticulitis GERD (gastroesophageal reflux disease) Cat scratch Cat bite Epigastric discomfort Diarrhea Nausea Viral syndrome GERD (gastroesophageal reflux disease) Neuropathy Arthritis GERD (gastroesophageal reflux disease) HTN (hypertension) Irritable bowel Heart murmur Surgical History S/P TAVR (transcatheter aortic valve replacement) Hx of esophagogastroduodenoscopy Hx of colonoscopy History of tonsillectomy History of appendectomy Family History Father No problems noted. Mother No problems noted. Social History Household Members: Children Housing: House Are you a primary medical care administrator to a significant other at home: No Do you presently have visiting nurse or other home services: No Alcohol intake: never Patient Tobacco Use Status: Former Tobacco user Quit Date: 2013 Tobacco use type: Cigarette e-Cigarette/Vaping Use: Never Used Second Hand Smoke Exposure: No Advance Directives Date on File: 03/28/23 service: No Current occupational status: retired Cognitive needs: No Hearing needs: No Vision needs: Yes (glasses) Review of Systems Const All systems reviewed & are unremarkable except as noted in HPI and below Physical Exam Vital Signs: Last Vital Signs Temp 97.9 F 11/06/23 10:20 Pulse 93 11/06/23 10:20 BP 140/80 H 11/06/23 10:20 Pulse Ox 96 11/06/23 10:20 Oxygen Delivery Method Room Air 11/06/23 10:20 BMI result Body Mass Index 26.5 Const General: cooperative and anxious HEENT Head: Yes normal to inspection, Yes normocephalic and Yes atraumatic Ears: hearing grossly normal bilaterally General nose exam: Normal external nose present Resp Effort & Inspection: normal respiratory effort Cardio Rate: regular rate Rhythm: regular rhythm Extrem Right lower extremity: lower leg (3 cm area of ecchymosis observed with mild tenderness. No surrounding eryt) Details: tenderness and localized swelling Assessment & Plan Assessment & Plan (1) Contusion of right lower leg: Code(s): S80.11XA - Contusion of right lower leg, initial encounter Plan: Patient was advised to apply warm compresses 3 to 4 times a day do gentle [id number] exercises with her right foot for follow-up with her PCP as needed Plan See plan Coding Level of Care Code Est Pt Level 3 (30713) Diagnoses Contusion of right lower leg S80.11XA
== END 2023-11-06 12:04 | disposition home or self-care (01) ==
PROVIDERS: PCP Physician Assistant; Visit Provider Physician Assistant Medical
DX: S80.11XA Contusion of right lower leg, initial encounter (principal)
CPT/HCPCS: 99213

== ENCOUNTER 2023-11-06 09:44 | Outpatient (REF) | payer MEDICARE, OTHER, SELFPAY ==
[2023-11-06 13:39] LABS: Hematocrit 34.4 % (37.0-47.0); Hemoglobin 10.9 g/dl (12.0-16.0); Mean Corpuscular HGB Conc 31.7 g/dl (31.0-35.0); Mean Corpuscular Hemoglobin 29.5 pg (27.0-33.0); Mean Platelet Volume 12.2 fL (9.4-12.3); Platelet Count 153 X10*3/uL (160-400); Red Cell Distribution Width 14.8 % (11.0-16.0); White Blood Count 5.5 X10*3/uL (4.8-10.8)
[2023-11-06 13:57] LABS: Alanine Aminotransferase 84 U/L (0-31); Albumin Level 4.4 g/dL (3.5-5.0); Alkaline Phosphatase 525 U/L (39-117); Anion Gap 14 (12-20); Aspartate Amino Transferase 80 U/L (5-31); Blood Urea Nitrogen 12 mg/dL (9-16); Calcium 10.3 mg/dL (8.4-10.2); Carbon Dioxide 31 mmol/L (22-29); Chloride 100 mmol/L (96-108); Cholesterol 150 mg/dL (<200); Estimated Glomerular Filt Rate > 60; Glucose Fasting 103 mg/dL (60-99); HDL Cholesterol 75 mg/dL (>40); Iron 68 mcg/dL (30-160); LDL Cholesterol Calculated 58 mg/dL (<100); Percent Iron Saturation 22 % (15-50); Potassium 3.9 mmol/L (3.3-5.1); Sodium 141 mmol/L (135-145); Total Iron Binding Capacity 304 mcg/dL (228-428); Total Protein 7.6 g/dL (6.5-8.0); Triglycerides 89 mg/dL (<150); Unsaturated Iron Binding 236 ug/dL
[2023-11-06 14:26] LABS: Folate 12.6 ng/mL (> or = 4.0); Vitamin B12 1885 pg/mL (200-900)
== END 2023-11-06 09:45 | disposition home or self-care (01) ==
LOC: HO.HMGCLDS 09:44
PROVIDERS: PCP Physician Assistant; Visit Provider Physician Assistant
DX: D50.9 Iron deficiency anemia, unspecified (principal); D61.818 Other pancytopenia; E53.8 Deficiency of other specified B group vitamins; Z86.73 Personal history of transient ischemic attack (TIA), and cerebral infarction without residual deficits; Z95.2 Presence of prosthetic heart valve
CPT/HCPCS: 36415; 80053; 80061; 82607; 82746; 83540; 85027

== ENCOUNTER 2023-11-13 13:26 | Emergency (ER) | payer MEDICARE, OTHER, SELFPAY ==
--- NOTE | ~2023-11-13 | XR_ITS ---
EXAMINATION: XR CHEST CLINICAL INFORMATION: Chest pain and shortness of breath. COMPARISON: Chest radiograph dated 10/23/2023. TECHNIQUE: 2 views of the chest were obtained. FINDINGS: The trachea is in normal anatomic position. Heart size is normal. There is calcific atherosclerotic disease of the aorta. There is an aortic stent. The lungs are hyperinflated consistent with chronic obstructive pulmonary physiology. There is no consolidation within either lung. No pleural effusion or pneumothorax. No acute osseous abnormality. There are chronic right-sided rib fractures. XR/XR chest 2V IMPRESSION: Findings consistent with chronic obstructive pulmonary physiology. No acute disease.
[2023-11-13 14:39] VITALS: BP 131/80; PULSE 93; RESP 16; TEMP 36.6; O2SAT 97; BMI 26.3
--- NOTE | 2023-11-13 14:43 | ECG_ITS ---
Test Reason : upper resp Blood Pressure : / mmHG Vent. Rate : 090 BPM Atrial Rate : 090 BPM P-R Int : 180 ms QRS Dur : 080 ms QT Int : 376 ms P-R-T Axes : 035 -08 049 degrees QTc Int : 459 ms Normal sinus rhythm Normal ECG When compared with ECG of 23-OCT-2023 14:16, MO interval has decreased Referred By: Generic ED Physician Electronically Signed By:MICHEL CHARLES MD
--- NOTE | 2023-11-13 14:45 | ED.GENADULT ---
HPI - General Adult General Chief complaint: Upper Respiratory Symptoms Stated complaint: diff breathing History of Present Illness HPI narrative: left without completion of treatment Related Data Home Medications Medication Instructions Recorded Confirmed alprazolam 0.25 mg tablet 0.25 mg PO BID PRN Anxiety 03/28/23 11/02/23 ondansetron HCl 4 mg tablet 4 mg PO Q8H PRN Nausea 03/28/23 11/02/23 cholecalciferol (vitamin D3) 25 25 mcg PO DAILY 10/11/23 11/02/23 mcg (1,000 unit) tablet folic acid 1 mg tablet 1 mg PO DAILY 10/11/23 11/02/23 polyethylene glycol 3350 17 17 g PO DAILY PRN Constipation 10/11/23 11/02/23 gram/dose oral powder (Miralax) atorvastatin 40 mg tablet 40 mg PO DAILY 10/18/23 11/02/23 coenzyme Q10 100 mg capsule 100 mg PO DAILY PRN 10/18/23 11/02/23 losartan 25 mg tablet 25 mg PO DAILY 11/02/23 11/02/23 citalopram 10 mg tablet 10 mg PO DAILY 11/06/23 lactulose 10 gram/15 mL oral PO 11/06/23 solution (Constulose) Previous Rx's Medication Instructions Recorded cyanocobalamin (vitamin B-12) 1,000 mcg PO DAILY #30 tabs 05/22/23 1,000 mcg tablet (Vitamin B-12) hydroxyzine HCl 25 mg tablet 25 mg PO TID PRN itching #10 tabs 07/21/23 fluticasone propionate 50 2 spray intranasal DAILY #16 grams 08/14/23 mcg/actuation nasal spray,suspension aspirin 81 mg tablet,delayed 81 mg PO DAILY #30 tabs 10/13/23 release lactulose 20 gram/30 mL oral 20 g (30 mL) PO DAILY PRN laxative 10/18/23 solution effect 15 days #900 mL clopidogrel 75 mg tablet 75 mg PO DAILY #30 tabs 10/22/23 pantoprazole 40 mg tablet,delayed 40 mg PO DAILY #30 tabs 10/22/23 release citalopram 20 mg tablet 20 mg PO BEDTIME 90 days #90 tabs 10/23/23 docusate sodium 100 mg capsule 100 mg PO BID PRN constipation 30 11/08/23 days #60 caps Allergies Allergy/AdvReac Type Severity Reaction Status Date / Time buspirone Allergy Intermediate Rash Verified 11/13/23 14:39 Sulfa (Sulfonamide Allergy Intermediate RASH Verified 11/13/23 14:39 Antibiotics) garlic [GARLIC] Allergy Unknown PER H&P Verified 11/13/23 14:39 metronidazole [From FLAGYL] Allergy Unknown OCULAR Verified 11/13/23 14:39 MIGRAINES penicillamine Allergy Unknown Unknown Verified 11/13/23 14:39 ciprofloxacin AdvReac Intermediate neuropathic Verified 11/13/23 14:39 pain lisinopril AdvReac Intermediate Cough Verified 11/13/23 14:39 nitrofurantoin AdvReac Mild GI side Verified 11/13/23 14:39 effects cefuroxime Allergy Intermediate wheezy Uncoded 11/13/23 14:39 cough/itch environmental Allergy Unknown Unknown Uncoded 11/13/23 14:39 flagyl Allergy Unknown Unknown Uncoded 11/13/23 14:39 From KEFLEX Allergy Unknown RASH Uncoded 11/13/23 14:39 Metoprolol Tartrate Allergy Unknown Unknown Uncoded 11/13/23 14:39 Sulfacet-R Allergy Unknown Unknown Uncoded 11/13/23 14:39 [facility] Past Medical History Medical History Constipation LLQ abdominal pain Anxiety Breast cancer screening Breast pain, left Elevated vitamin B12 level Neck muscle spasm Strain of neck muscle Low back pain Pubic ramus fracture Sore throat Skin tear of upper arm without complication Head injury, acute, without loss of consciousness Fall Dizziness Medication noncompliance due to cognitive impairment RLQ abdominal pain Sinusitis Flu syndrome Precordial chest pain Atypical chest pain Cold intolerance Former smoker Pulmonary nodule Abnormal lung sounds Fever Bilateral calf pain Nausea Left lower quadrant abdominal pain Dysuria Fatigue Heart palpitations Lower extremity weakness HTN (hypertension) Aortic stenosis Obstipation Dark stools Lower abdominal pain Gastroenteritis Neck pain on right side URI (upper respiratory infection) Back pain Cough Chest pain Rhinitis Elevated BP without diagnosis of hypertension Non-rheumatic aortic stenosis Diverticulitis GERD (gastroesophageal reflux disease) Cat scratch Cat bite Epigastric discomfort Diarrhea Nausea Viral syndrome GERD (gastroesophageal reflux disease) Neuropathy Arthritis GERD (gastroesophageal reflux disease) HTN (hypertension) Irritable bowel Heart murmur Surgical History S/P TAVR (transcatheter aortic valve replacement) Hx of esophagogastroduodenoscopy Hx of colonoscopy History of tonsillectomy History of appendectomy Family History Family History Father No problems noted. Mother No problems noted. Social History Social History Household Members: Children Housing: House Are you a primary respiratory care program director to a significant other at home: No Do you presently have visiting nurse or other home services: No Alcohol intake: never Patient Tobacco Use Status: Former Tobacco user Quit Date: 2013 Tobacco use type: Cigarette e-Cigarette/Vaping Use: Never Used Second Hand Smoke Exposure: No Advance Directives: Yes Advance Directives on File: Yes Advance Directives Date on File: 03/28/23 service: No Current occupational status: retired Cognitive needs: No Hearing needs: No Vision needs: Yes (glasses) Physical Exam ED Vital Signs: Vital Signs - 24 hr 11/13/23 14:39 Temperature 98 F Pulse Rate 93 Respiratory Rate 16 Blood Pressure 131/80 Pulse Oximetry 97 Oxygen Delivery Method Room Air BMI result Body Mass Index 26.3 Course Course Course Narrative: RME: 83 yold female with pmh presents to the ED for SOB. Patient is not in distress. Patient is well apperaing. labs and EKG ordered Medical Decision Making Lab Data 11/13/23 15:56 11/13/23 15:56 Labs: Lab Results 11/13/23 Range/Units 15:56 WBC 4.2 L (4.8-10.8) X10*3/uL RBC 3.41 L (4.20-5.50) X10*6/uL Hgb 10.1 L (12.0-16.0) g/dl Hct 31.8 L (37.0-47.0) % MCV 93.3 (80.0-98.0) fL MCH 29.6 (27.0-33.0) pg MCHC 31.8 (31.0-35.0) g/dl RDW 14.8 (11.0-16.0) % Plt Count 149 L (160-400) X10*3/uL MPV 11.9 (9.4-12.3) fL Immature Gran % (Auto) 0.5 H (0.0-0.4) % Neut % (Auto) 72.8 (45-73) % Lymph % (Auto) 15.6 L (20-40) % [place] % (Auto) 6.6 (2-11) % Eos % (Auto) 3.8 (0-4) % Baso % (Auto) 0.7 (0-2) % Lymph # (Auto) 0.7 L (1.2-4.9) X10*3/uL [place] # (Auto) 0.3 (0.1-1.2) X10*3/uL Eos # (Auto) 0.2 (0.0-0.4) X10*3/uL Baso # (Auto) 0.0 (0.0-0.2) X10*3/uL Abs Immat Gran (auto) 0.02 (0.00-0.03) X10*3/uL Absolute Neuts (auto) 3.1 (2.0-8.3) x10*3/uL Absolute Nucleated RBC 0.000 (0.0-0.012) X10*3/uL Nucleated RBC % (auto) 0.0 (0.0-0.2) /100WBC Sodium 144 (135-145) mmol/L Potassium 3.2 L (3.3-5.1) mmol/L Chloride 106 (96-108) mmol/L Carbon Dioxide 29 (22-29) mmol/L Anion Gap 12 (12-20) BUN 15 (9-16) mg/dL Creatinine 0.76 (0.5-1.4) mg/dL Estim Creat Clear Calc 57.6 Estimated GFR > 60 Random Glucose 106 (60-115) mg/dL Calcium 10.0 (8.4-10.2) mg/dL Troponin I High Sens 14.8 D (<3.5-17.0) ng/L B-Natriuretic Peptide 307 H (<100) pg/mL Influenza Type A (PCR) NEGATIVE (Negative) Influenza Type B (PCR) NEGATIVE (Negative) RSV RNA Qual (PCR) NEGATIVE (Negative) SARS-CoV-2 RNA (RT-PCR) NEGATIVE (Negative) Discharge Plan Discharge Clinical Impression: Acute dyspnea Patient Disposition: Left W/O Completing Treatment Prescriptions: No Action cyanocobalamin (vitamin B-12) [Vitamin B-12] 1,000 mcg tablet 1,000 mcg PO DAILY Qty: 30 3RF fluticasone propionate 50 mcg/actuation spray,suspension 2 spray intranasal DAILY Qty: 16 0RF aspirin 81 mg tablet,delayed release (DR/EC) 81 mg PO DAILY Qty: 30 0RF clopidogrel 75 mg tablet 75 mg PO DAILY Qty: 30 0RF pantoprazole 40 mg tablet,delayed release (DR/EC) 40 mg PO DAILY Qty: 30 0RF citalopram 20 mg tablet 20 mg PO BEDTIME 90 Days Qty: 90 1RF docusate sodium 100 mg capsule 100 mg PO BID PRN (Reason: constipation) 30 Days Qty: 60 1RF ondansetron HCl 4 mg tablet 4 mg PO Q8H PRN (Reason: Nausea) alprazolam 0.25 mg tablet 0.25 mg PO BID PRN (Reason: Anxiety) folic acid 1 mg Tablet 1 mg PO DAILY polyethylene glycol 3350 [Miralax] 17 gram/dose Powder 17 g PO DAILY PRN (Reason: Constipation) cholecalciferol (vitamin D3) 25 mcg (1,000 unit) Tablet 25 mcg PO DAILY losartan 25 mg tablet 25 mg PO DAILY citalopram 10 mg tablet 10 mg PO DAILY lactulose [Constulose] 10 gram/15 mL solution PO coenzyme Q10 100 mg capsule 100 mg PO DAILY PRN atorvastatin 40 mg tablet 40 mg PO DAILY lactulose 20 gram/30 mL solution 20 g PO DAILY PRN (Reason: laxative effect) 15 Days Qty: 900 0RF hydroxyzine HCl 25 mg tablet 25 mg PO TID PRN (Reason: itching) Qty: 10 0RF Discharge Date/Time: 11/13/23 20:26
[2023-11-13 16:04] LABS: Basophils Percent Auto 0.7 % (0-2); Eosinophils Absolute Auto 0.2 X10*3/uL (0.0-0.4); Eosinophils Percent Auto 3.8 % (0-4); Hematocrit 31.8 % (37.0-47.0); Hemoglobin 10.1 g/dl (12.0-16.0); Imm Gran Abs Auto 0.02 X10*3/uL (0.00-0.03); Imm Gran Pct Auto 0.5 % (0.0-0.4); Lymphocytes Absolute Auto 0.7 X10*3/uL (1.2-4.9); Lymphocytes Percent Auto 15.6 % (20-40); MANUAL DIFF FLAG NO; Mean Corpuscular HGB Conc 31.8 g/dl (31.0-35.0); Mean Corpuscular Hemoglobin 29.6 pg (27.0-33.0); Mean Corpuscular Volume 93.3 fL (80.0-98.0); Mean Platelet Volume 11.9 fL (9.4-12.3); Monocytes Absolute Auto 0.3 X10*3/uL (0.1-1.2); Monocytes Percent Auto 6.6 % (2-11); Neutrophils Absolute Auto 3.1 x10*3/uL (2.0-8.3); Neutrophils Percent Auto 72.8 % (45-73); Platelet Count 149 X10*3/uL (160-400); Red Blood Count 3.41 X10*6/uL (4.20-5.50); Red Cell Distribution Width 14.8 % (11.0-16.0); White Blood Count 4.2 X10*3/uL (4.8-10.8)
[2023-11-13 16:19] LABS: Anion Gap 12 (12-20); Blood Urea Nitrogen 15 mg/dL (9-16); Carbon Dioxide 29 mmol/L (22-29); Chloride 106 mmol/L (96-108); Creatinine Clr Calc Pharmacy 57.6; Estimated Glomerular Filt Rate > 60; Glucose Random 106 mg/dL (60-115); Potassium 3.2 mmol/L (3.3-5.1); Sodium 144 mmol/L (135-145)
[2023-11-13 16:26] LABS: B Type Natriuretic Peptide 307 pg/mL (<100)
[2023-11-13 16:27] LABS: Troponin-I High Sensitivity 14.8 ng/L (<3.5-17.0)
[2023-11-13 16:50] LABS: Influenza A PCR NEGATIVE (Negative); Influenza B PCR NEGATIVE (Negative); Resp Syncy Virus RNA Qual PCR NEGATIVE (Negative); SARS COV2 PCR INHOUSE NEGATIVE (Negative)
== END 2023-11-13 20:26 | disposition left against medical advice (07) ==
PROVIDERS: Physician Assistant; Emergency Provider Emergency Medicine; PCP Physician Assistant
DX: R06.00 Dyspnea, unspecified (principal); I10 Essential (primary) hypertension; Z11.52 Encounter for screening for COVID-19; Z20.828 Contact with and (suspected) exposure to other viral communicable diseases
CPT/HCPCS: 0241U; 36415; 71046; 80048; 83880; 84484; 85025; 93005; 99283

== ENCOUNTER → 2023-11-13 14:43 | Outpatient (BNV) | payer MEDICARE, OTHER, SELFPAY | PROVIDERS: Emergency Provider Emergency Medicine; PCP Physician Assistant; Visit Provider Internal Medicine Cardiovascular Disease | DX: R06.02 Shortness of breath (principal) | CPT/HCPCS: 93010 ==

== ENCOUNTER 2023-11-15 10:55 | Outpatient (REF) | payer MEDICARE, OTHER, SELFPAY ==
[2023-11-15 12:51] LABS: Alanine Aminotransferase 52 U/L (0-31); Albumin Level 4.2 g/dL (3.5-5.0); Alkaline Phosphatase 653 U/L (39-117); Aspartate Amino Transferase 49 U/L (5-31); Bilirubin Direct 0.2 mg/dL (0.0-0.5); Bilirubin Total 0.6 mg/dL (0.0-1.0); Total Protein 7.4 g/dL (6.5-8.0)
== END 2023-11-15 10:56 | disposition home or self-care (01) ==
LOC: HO.LAB 10:55
PROVIDERS: PCP Physician Assistant; Visit Provider Physician Assistant
DX: R74.8 Abnormal levels of other serum enzymes (principal)
CPT/HCPCS: 36415; 80076

== ENCOUNTER 2023-11-17 09:03 | Outpatient (REF) | payer MEDICARE, OTHER, SELFPAY ==
--- NOTE | ~2023-11-17 | US_ITS ---
EXAMINATION: US ABDOMEN LIMITED CLINICAL INFORMATION: Abnormal findings of blood chemistry. COMPARISON: X-ray abdomen 10/23/2023. CT abdomen and pelvis 10/11/2023. Ultrasound abdomen limited 07/07/2023. X-ray KUB 02/05/2023. Ultrasound abdomen complete 01/27/2023. TECHNIQUE: Real-time imaging of the right upper quadrant abdominal viscera. Limited visualization due to bowel gas. FINDINGS: PANCREAS: Limited visualization of pancreatic tail and head. Imaged portion of pancreatic body is unremarkable. LIVER: Right hepatic 1.6 cm cyst. Right hepatic 1.2 cm cyst. Mildly heterogeneous hepatic echotexture may represent hepatocellular disease. Limited visualization. GALLBLADDER: No gallstones. No gallbladder wall thickening. COMMON BILE DUCT: Normal in caliber measuring 0.5 cm in diameter. RIGHT KIDNEY: No hydronephrosis. No renal calculi. Limited visualization. The kidney measures 10.9 cm in maximum dimension. FREE FLUID: None. ADDITIONAL FINDINGS: Incidental note on limited views of the abdominal aorta infrarenal abdominal aortic aneurysm, better characterized on a CT abdomen and pelvis of 10/11/2023 and measuring 3.0 cm AP and 3.2 cm transverse. US/US abdomen limited IMPRESSION: 1. Right hepatic cysts. 2. Mildly heterogeneous hepatic echotexture may represent hepatocellular disease. 3. Cholelithiasis. 4. Incidental note on limited views of the abdominal aorta infrarenal abdominal aortic aneurysm, better characterized on a CT abdomen and pelvis of 10/11/2023 and measuring 3.0 cm AP and 3.2 cm transverse.
== END 2023-11-17 09:04 | disposition home or self-care (01) ==
LOC: HO.US 09:03
PROVIDERS: PCP Physician Assistant; Visit Provider Internal Medicine
DX: R79.89 Other specified abnormal findings of blood chemistry (principal); R74.8 Abnormal levels of other serum enzymes
CPT/HCPCS: 76705

== ENCOUNTER 2023-11-22 14:18 | Emergency (ER) | payer MEDICARE, OTHER, SELFPAY ==
--- NOTE | ~2023-11-22 | CT_ITS ---
EXAMINATION: CT HEAD WITHOUT CONTRAST CLINICAL INFORMATION: Vision disturbances. COMPARISON: CT head June 03, 2023 TECHNIQUE: Contiguous axial imaging was performed from the skull base to vertex without intravenous administration of contrast. Coronal and sagittal reformatted images are performed at the CT scanner. [This CT examination was performed using dose optimization techniques as appropriate, variously including the following: *Automated exposure control *Adjustment of mA and/or kV according to patient size (this includes techniques or standardized protocols for targeted exams where dose is matched to indication/reason for exam; i.e. extremities or head) *Use of iterative reconstruction technique] DLP: 1010 mGy-cm. FINDINGS: There is no evidence of acute intracranial hemorrhage or territorial infarction. No abnormal mass-effect or midline shift is seen. Curiel to white matter differentiation is well preserved. No extra-axial fluid collections are identified. There is generalized global volume loss. There is mild prominence of the sulci. The ventricles are disproportionately prominent relative to the sulci suspicious for communicating hydrocephalus. This remains unchanged since prior CT Head study June 03, 2023. There is marked hypodensity of the periventricular white matter due to chronic small vessel ischemic disease. There are vascular calcifications of the internal carotid arteries bilaterally. There is no osseous abnormality. The mastoid air cells and visualized portions of the paranasal sinuses are well-aerated. CT/CT head/brain wo IV con IMPRESSION: 1. No acute intracranial pathology.
--- NOTE | 2023-11-22 14:22 | ED_ITS ---
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 Patient states she took all of her home medications today and otherwise denies any feelings of wanting to harm herself, fevers, chills or urinary symptoms. Related Data Home Medications Medication Instructions Recorded Confirmed alprazolam 0.25 mg tablet 0.25 mg PO BID PRN Anxiety 03/28/23 11/02/23 cholecalciferol (vitamin D3) 25 25 mcg PO DAILY 10/11/23 11/02/23 mcg (1,000 unit) tablet folic acid 1 mg tablet 1 mg PO DAILY 10/11/23 11/02/23 polyethylene glycol 3350 17 17 g PO DAILY PRN Constipation 10/11/23 11/02/23 gram/dose oral powder (Miralax) atorvastatin 40 mg tablet 40 mg PO DAILY 10/18/23 11/02/23 coenzyme Q10 100 mg capsule 100 mg PO DAILY PRN 10/18/23 11/02/23 losartan 25 mg tablet 25 mg PO DAILY 11/02/23 11/02/23 citalopram 10 mg tablet 10 mg PO DAILY 11/06/23 lactulose 10 gram/15 mL oral PO 11/06/23 solution (Constulose) Previous Rx's Medication Instructions Recorded cyanocobalamin (vitamin B-12) 1,000 mcg PO DAILY #30 tabs 05/22/23 1,000 mcg tablet (Vitamin B-12) hydroxyzine HCl 25 mg tablet 25 mg PO TID PRN itching #10 tabs 07/21/23 fluticasone propionate 50 2 spray intranasal DAILY #16 grams 08/14/23 mcg/actuation nasal spray,suspension lactulose 20 gram/30 mL oral 20 g (30 mL) PO DAILY PRN laxative 10/18/23 solution effect 15 days #900 mL citalopram 20 mg tablet 20 mg PO BEDTIME 90 days #90 tabs 10/23/23 docusate sodium 100 mg capsule 100 mg PO BID PRN constipation 30 11/08/23 days #60 caps benzonatate 200 mg capsule 200 mg PO TID 5 days #15 caps 11/14/23 aspirin 81 mg tablet,delayed 81 mg PO DAILY #30 tabs 11/20/23 release pantoprazole 40 mg tablet,delayed 40 mg PO DAILY #30 tabs 11/20/23 release albuterol sulfate 90 mcg/actuation 1 inh inhalation QID PRN shortness 11/21/23 aerosol inhaler of breath or wheezing 30 days #8.5 grams clopidogrel 75 mg tablet 75 mg PO DAILY 90 days #90 tabs 11/22/23 ondansetron HCl 4 mg tablet 4 mg PO Q8H PRN Nausea 7 days #21 11/22/23 tabs Allergies Allergy/AdvReac Type Severity Reaction Status Date / Time buspirone Allergy Intermediate Rash Verified 11/22/23 14:29 Sulfa (Sulfonamide Allergy Intermediate RASH Verified 11/22/23 14:29 Antibiotics) garlic [GARLIC] Allergy Unknown PER H&P Verified 11/22/23 14:29 metronidazole [From FLAGYL] Allergy Unknown OCULAR Verified 11/22/23 14:29 MIGRAINES penicillamine Allergy Unknown Unknown Verified 11/22/23 14:29 ciprofloxacin AdvReac Intermediate neuropathic Verified 11/22/23 14:29 pain lisinopril AdvReac Intermediate Cough Verified 11/22/23 14:29 nitrofurantoin AdvReac Mild GI side Verified 11/22/23 14:29 effects cefuroxime Allergy Intermediate wheezy Uncoded 11/13/23 14:39 cough/itch environmental Allergy Unknown Unknown Uncoded 11/13/23 14:39 flagyl Allergy Unknown Unknown Uncoded 11/13/23 14:39 From KEFLEX Allergy Unknown RASH Uncoded 11/13/23 14:39 Metoprolol Tartrate Allergy Unknown Unknown Uncoded 11/13/23 14:39 Sulfacet-R Allergy Unknown Unknown Uncoded 11/13/23 14:39 Review of Systems 2 Review of Systems: Pertinent positives and negatives as stated in [facility] Past Medical History Source: nursing notes reviewed Medical History Constipation LLQ abdominal pain Anxiety Breast cancer screening Breast pain, left Elevated vitamin B12 level Neck muscle spasm Strain of neck muscle Low back pain Pubic ramus fracture Sore throat Skin tear of upper arm without complication Head injury, acute, without loss of consciousness Fall Dizziness Medication noncompliance due to cognitive impairment RLQ abdominal pain Sinusitis Flu syndrome Precordial chest pain Atypical chest pain Cold intolerance Former smoker Pulmonary nodule Abnormal lung sounds Fever Bilateral calf pain Nausea Left lower quadrant abdominal pain Dysuria Fatigue Heart palpitations Lower extremity weakness HTN (hypertension) Aortic stenosis Obstipation Dark stools Lower abdominal pain Gastroenteritis Neck pain on right side URI (upper respiratory infection) Back pain Cough Chest pain Rhinitis Elevated BP without diagnosis of hypertension Non-rheumatic aortic stenosis Diverticulitis GERD (gastroesophageal reflux disease) Cat scratch Cat bite Epigastric discomfort Diarrhea Nausea Viral syndrome GERD (gastroesophageal reflux disease) Neuropathy Arthritis GERD (gastroesophageal reflux disease) HTN (hypertension) Irritable bowel Heart murmur Surgical History S/P TAVR (transcatheter aortic valve replacement) Hx of esophagogastroduodenoscopy Hx of colonoscopy History of tonsillectomy History of appendectomy Family History Family History Father No problems noted. Mother No problems noted. Social History Social History Household Members: Children Housing: House Are you a primary managed care specialist to a significant other at home: No Do you presently have visiting nurse or other home services: No Alcohol intake: former Patient Tobacco Use Status: Former Tobacco user Quit Date: 2013 Tobacco use type: Cigarette Smoked in Last 30 Days: No e-Cigarette/Vaping Use: Never Used Second Hand Smoke Exposure: No Use of substances other than those prescribed or required for medical reasons: No Advance Directives: Yes Advance Directives on File: Yes Advance Directives Date on File: 09/21/23 service: No Current occupational status: retired Cognitive needs: No Hearing needs: No Vision needs: Yes (glasses) Physical Exam 2 Vital Signs: Vital Signs: Last Vital Signs Temp 98.3 F 11/22/23 19:37 Pulse 87 11/22/23 19:37 Resp 18 11/22/23 19:37 BP 174/85 H 11/22/23 19:37 Pulse Ox 97 11/22/23 19:37 O2 Del Method Room Air 11/22/23 19:37 BMI result Body Mass Index 28.3 VITAL SIGNS: Reviewed. GENERAL: Well developed, well nourished, in no acute distress. HEAD: Normocephalic/atraumatic EYES: PERRLA, EOMI EARS: Ext canals without abnormality NOSE: Nares patent bilateral OROPHARYNX: no oral lesions noted, posterior pharynx clear NECK: Supple, no adenopathy LUNGS: Normal breath sounds. No adventitious sounds or accessory muscle use. SpO2<97> CARDIOVASCULAR: Regular rate and rhythm without noted murmurs, no JVD or lower extremity edema. ABDOMEN: Soft, non-tender, non-distended with bowel sounds. MUSCULOSKELETAL: No tenderness, deformities, or effusions noted on gross inspection. EXTREMITIES: No cyanosis, clubbing or edema. SKIN: Inspection of the skin reveals no rashes NEUROLOGIC: Alert and oriented x 4. Strength and sensation to light touch were grossly intact x 4, no facial asymmetry, no pronator drift, cranial nerves 2-12 grossly intact. Course Course Course Narrative: This is an RME: Additional HPI, ROS, PE not included below will be deferred to primary provider. This is a 83-year-old female presenting to the emergency department with complaints of seeing ?faint lines across both kumar of vision , and generalized weakness times 30 minutes. She endorses slight headache. She is neurologically intact, blood pressure mildly elevated at 170/83. Good strength in upper and lower extremities. Symmetric smile. NIH score 0. Discussed case with attending physician, Dr. Baer. Plan: CT head, labs, EKG, further ER evaluation needed Medical Decision Making Medical Decision Making MDM Narrative: 83-year-old female with history and clinical presentation, DDX: Anxiety, depression, possible ocular migraine but patient nonfocal currently and no history or clinical findings to suggest occult infection. I reviewed all investigations and hematologic indices are grossly within normal limits without leukocytosis, patient has a stable and chronic thrombocytopenia and normocytic anemia. Patient is afebrile. Chemistries disease are negative for AARON/electrolyte or liver enzyme derangements other than a chronically stable alkaline phosphatase, high sensitivity troponin is noted be detectable but not significantly elevated there are no acute changes on EKG. Viral testing is negative for influenza/RSV/COVID-19. Head CT negative for any acute findings. I discussed all findings with the patient at bedside and she agrees that she is anxious, she reports that she does talk to someone once a week for proximally 45 minutes and that she has had a recent increase in her Celexa. Differential Diagnosis Differential Diagnoses: The differential diagnosis associated with the presentation includes Please see the discussion above Admission/Observation Consideration of admission/observation: Escalation of care including admission/observation considered Please see the discussion above Lab Data MDM Lab Attestation statement: I reviewed the patient's lab results. Please see the discussion above 11/22/23 14:46 11/22/23 14:46 Labs: Lab Results 11/22/23 Range/Units 14:46 WBC 3.2 L (4.8-10.8) X10*3/uL RBC 3.42 L (4.20-5.50) X10*6/uL Hgb 10.0 L (12.0-16.0) g/dl Hct 31.3 L (37.0-47.0) % MCV 91.5 (80.0-98.0) fL MCH 29.2 (27.0-33.0) pg MCHC 31.9 (31.0-35.0) g/dl RDW 14.9 (11.0-16.0) % Plt Count 141 L (160-400) X10*3/uL MPV 11.6 (9.4-12.3) fL Immature Gran % (Auto) 0.6 H (0.0-0.4) % Neut % (Auto) 65.3 (45-73) % Lymph % (Auto) 21.9 (20-40) % [place] % (Auto) 6.9 (2-11) % Eos % (Auto) 4.7 H (0-4) % Baso % (Auto) 0.6 (0-2) % Lymph # (Auto) 0.7 L (1.2-4.9) X10*3/uL [place] # (Auto) 0.2 (0.1-1.2) X10*3/uL Eos # (Auto) 0.2 (0.0-0.4) X10*3/uL Baso # (Auto) 0.0 (0.0-0.2) X10*3/uL Abs Immat Gran (auto) 0.02 (0.00-0.03) X10*3/uL Absolute Neuts (auto) 2.1 (2.0-8.3) x10*3/uL Absolute Nucleated RBC 0.000 (0.0-0.012) X10*3/uL Nucleated RBC % (auto) 0.0 (0.0-0.2) /100WBC Sodium 141 (135-145) mmol/L Potassium 3.4 (3.3-5.1) mmol/L Chloride 102 (96-108) mmol/L Carbon Dioxide 32 H (22-29) mmol/L Anion Gap 10 L (12-20) BUN 14 (9-16) mg/dL Creatinine 0.80 (0.5-1.4) mg/dL Estim Creat Clear Calc 52.7 Estimated GFR > 60 Random Glucose 106 (60-115) mg/dL Calcium 9.9 (8.4-10.2) mg/dL Magnesium 1.9 (1.6-2.6) mg/dL Total Bilirubin 0.7 (0.0-1.0) mg/dL Direct Bilirubin 0.3 (0.0-0.5) mg/dL AST 28 (5-31) U/L ALT 27 (0-31) U/L Alkaline Phosphatase 496 H (39-117) U/L Troponin I High Sens 3.8 D (<3.5-17.0) ng/L Total Protein 7.3 (6.5-8.0) g/dL Albumin 4.1 (3.5-5.0) g/dL Influenza Type A (PCR) NEGATIVE (Negative) Influenza Type B (PCR) NEGATIVE (Negative) RSV RNA Qual (PCR) NEGATIVE (Negative) SARS-CoV-2 RNA (RT-PCR) NEGATIVE (Negative) Independent Interpretation I performed an independent interpretation of an: EKG Interpretation: Normal sinus rhythm, HR-94, no STEMI, HI/QRS/QTC is within normal limits and there are no acute changes when compared to EKG from 11/13/2023. Radiology Impression Discussion of test interpretation with radiology: I have reviewed the radiologist's reading. Radiologist Impression: Please see the discussion above External Record Review External record reviewed: Outpatient record, Prior outpatient labs and Prior outpatient radiology Chronic Conditions Patient?s care impacted by: Hypertension Anxiety, depression Critical Care Time Critical Care Time Critical Care Time: Yes Total Critical Care Time: 30 Attestation: I personally attest to this time spent taking care of the patient. Discharge Plan Discharge Clinical Impression: Ocular migraine Patient Disposition: Home, Self-Care Instructions: Migraine Headache (ED) Additional Instructions: 1. Resume all home medications as prescribed. 2. Please follow-up with your primary care doctor. Return to the ER if you experience any worsening of your symptoms. Prescriptions: No Action cyanocobalamin (vitamin B-12) [Vitamin B-12] 1,000 mcg tablet 1,000 mcg PO DAILY Qty: 30 3RF fluticasone propionate 50 mcg/actuation spray,suspension 2 spray intranasal DAILY Qty: 16 0RF citalopram 20 mg tablet 20 mg PO BEDTIME 90 Days Qty: 90 1RF docusate sodium 100 mg capsule 100 mg PO BID PRN (Reason: constipation) 30 Days Qty: 60 1RF benzonatate 200 mg capsule 200 mg PO TID 5 Days Qty: 15 0RF pantoprazole 40 mg tablet,delayed release (DR/EC) 40 mg PO DAILY Qty: 30 0RF aspirin 81 mg tablet,delayed release (DR/EC) 81 mg PO DAILY Qty: 30 0RF albuterol sulfate 90 mcg/actuation HFA aerosol inhaler 1 inh inhalation QID PRN (Reason: shortness of breath or wheezing) 30 Days Qty: 8.5 0RF clopidogrel 75 mg tablet 75 mg PO DAILY 90 Days Qty: 90 1RF ondansetron HCl 4 mg tablet 4 mg PO Q8H PRN (Reason: Nausea) 7 Days Qty: 21 0RF alprazolam 0.25 mg tablet 0.25 mg PO BID PRN (Reason: Anxiety) folic acid 1 mg Tablet 1 mg PO DAILY polyethylene glycol 3350 [Miralax] 17 gram/dose Powder 17 g PO DAILY PRN (Reason: Constipation) cholecalciferol (vitamin D3) 25 mcg (1,000 unit) Tablet 25 mcg PO DAILY losartan 25 mg tablet 25 mg PO DAILY citalopram 10 mg tablet 10 mg PO DAILY lactulose [Constulose] 10 gram/15 mL solution PO coenzyme Q10 100 mg capsule 100 mg PO DAILY PRN atorvastatin 40 mg tablet 40 mg PO DAILY lactulose 20 gram/30 mL solution 20 g PO DAILY PRN (Reason: laxative effect) 15 Days Qty: 900 0RF hydroxyzine HCl 25 mg tablet 25 mg PO TID PRN (Reason: itching) Qty: 10 0RF Referrals: Nick Gomez PA-C [Primary Care Provider] -
[2023-11-22 14:23] VITALS: BP 170/83; PULSE 94; RESP 20; TEMP 37.2; O2SAT 98; BMI 28.3
--- NOTE | 2023-11-22 14:31 | ECG_ITS ---
Test Reason : weakness Blood Pressure : / mmHG Vent. Rate : 094 BPM Atrial Rate : 094 BPM P-R Int : 186 ms QRS Dur : 082 ms QT Int : 378 ms P-R-T Axes : 058 -13 039 degrees QTc Int : 472 ms Normal sinus rhythm Septal infarct , age undetermined Abnormal ECG When compared with ECG of 13-NOV-2023 16:02, No significant change was found Referred By: Marge Causey Electronically Signed By:WILBUR MCFARLAND
[2023-11-22 14:52] LABS: MANUAL DIFF FLAG NO
[2023-11-22 14:56] LABS: Basophils Percent Auto 0.6 % (0-2); Eosinophils Absolute Auto 0.2 X10*3/uL (0.0-0.4); Eosinophils Percent Auto 4.7 % (0-4); Hematocrit 31.3 % (37.0-47.0); Imm Gran Abs Auto 0.02 X10*3/uL (0.00-0.03); Imm Gran Pct Auto 0.6 % (0.0-0.4); Lymphocytes Absolute Auto 0.7 X10*3/uL (1.2-4.9); Lymphocytes Percent Auto 21.9 % (20-40); Mean Corpuscular HGB Conc 31.9 g/dl (31.0-35.0); Mean Corpuscular Hemoglobin 29.2 pg (27.0-33.0); Mean Corpuscular Volume 91.5 fL (80.0-98.0); Mean Platelet Volume 11.6 fL (9.4-12.3); Monocytes Absolute Auto 0.2 X10*3/uL (0.1-1.2); Monocytes Percent Auto 6.9 % (2-11); Neutrophils Absolute Auto 2.1 x10*3/uL (2.0-8.3); Neutrophils Percent Auto 65.3 % (45-73); Platelet Count 141 X10*3/uL (160-400); Red Blood Count 3.42 X10*6/uL (4.20-5.50); Red Cell Distribution Width 14.9 % (11.0-16.0); White Blood Count 3.2 X10*3/uL (4.8-10.8)
[2023-11-22 15:07] LABS: Alanine Aminotransferase 27 U/L (0-31); Albumin Level 4.1 g/dL (3.5-5.0); Alkaline Phosphatase 496 U/L (39-117); Anion Gap 10 (12-20); Aspartate Amino Transferase 28 U/L (5-31); Bilirubin Direct 0.3 mg/dL (0.0-0.5); Bilirubin Total 0.7 mg/dL (0.0-1.0); Blood Urea Nitrogen 14 mg/dL (9-16); Calcium 9.9 mg/dL (8.4-10.2); Carbon Dioxide 32 mmol/L (22-29); Chloride 102 mmol/L (96-108); Creatinine Clr Calc Pharmacy 52.7; Estimated Glomerular Filt Rate > 60; Glucose Random 106 mg/dL (60-115); Magnesium 1.9 mg/dL (1.6-2.6); Potassium 3.4 mmol/L (3.3-5.1); Sodium 141 mmol/L (135-145); Total Protein 7.3 g/dL (6.5-8.0)
[2023-11-22 15:14] LABS: Troponin-I High Sensitivity 3.8 ng/L (<3.5-17.0)
[2023-11-22 15:33] LABS: Influenza A PCR NEGATIVE (Negative); Influenza B PCR NEGATIVE (Negative); Resp Syncy Virus RNA Qual PCR NEGATIVE (Negative); SARS COV2 PCR INHOUSE NEGATIVE (Negative)
[2023-11-22 19:37] VITALS: BP 174/85; PULSE 87; RESP 18; TEMP 36.8; O2SAT 97
--- NOTE | 2023-11-22 19:38 | PC.NURSE ---
This rn went to bring the pt into the main ed and pt had difficulty getting up into the wheelchair. pt was trying to lift her left leg to the foot rest of the wheelchair and was only able to make a stomping movement with the left foot. pt was able to get out of the wheelchair to the bed with one assist. pt is mildly confused and focused on her red pocket book that was right next to her body in the chair. pt is pleasant but confused. this has been relayed on to [facility].
[2023-11-22 21:32] VITALS: BP 188/94; PULSE 95; RESP 19; TEMP 37; O2SAT 97
--- NOTE | 2023-11-22 21:58 | PC.NURSE ---
Assisted pt with getting dress, iv removed, reviewed discharge instruction with pt. pt verbalized understanding. Notified son, who will be picking her up for to transport her home.
[2023-11-22 22:01] VITALS: BP 185/81; PULSE 95; RESP 20; TEMP 36.8; O2SAT 97
== END 2023-11-22 22:22 | disposition home or self-care (01) ==
PROVIDERS: Physician Assistant Medical; Emergency Provider Student in an Organized Health Care Education/Training Program; PCP Physician Assistant
DX: G43.B0 Ophthalmoplegic migraine, not intractable (principal); I10 Essential (primary) hypertension; Z11.52 Encounter for screening for COVID-19; Z20.828 Contact with and (suspected) exposure to other viral communicable diseases
CPT/HCPCS: 0241U; 36415; 70450; 80048; 80076; 83735; 84484; 85025; 93005; 99284; 99285

== ENCOUNTER → 2023-11-22 14:31 | Outpatient (BNV) | payer MEDICARE, OTHER, SELFPAY | PROVIDERS: PCP Physician Assistant; Visit Provider Internal Medicine | DX: R53.1 Weakness (principal) | CPT/HCPCS: 93010 ==

== ENCOUNTER 2023-11-23 01:00 | Emergency (ER) | payer MEDICARE, OTHER, SELFPAY ==
[2023-11-23] VITALS (10 sets, daily range): BP systolic 110–217; BP diastolic 68–93; PULSE 70–95; RESP 14–16; TEMP 36.3–37.2; O2SAT 95–98; BMI 28.3
--- NOTE | ~2023-11-23 | CT_ITS ---
EXAMINATION: HEAD CT WITHOUT CONTRAST CERVICAL SPINE CT WITHOUT CONTRAST CLINICAL INFORMATION: Fall. Pain. COMPARISON: 11/22/2023 TECHNIQUE: Contiguous axial imaging of the head was performed without the administration of IV contrast. Axial multidetector volumetric images were also performed through the cervical spine without intravenous contrast. Multiplanar reconstructed images in coronal and sagittal orientations were submitted. This CT examination was performed using dose optimization techniques as appropriate, variously including the following: *Automated exposure control *Adjustment of mA and/or kV according to patient size (this includes techniques or standardized protocols for targeted exams where dose is matched to indication/reason for exam; i.e. extremities or head) *Use of iterative reconstruction technique DOSE: 1168 mGy-cm FINDINGS: HEAD: There is no evidence of acute intracranial hemorrhage or territorial infarction. No abnormal mass-effect or midline shift. No extra-axial fluid collections. Curiel to white matter differentiation is well preserved. As on the prior study, there is enlargement of the lateral, third, and fourth ventricles, most pronounced in the atria of the lateral ventricles. Callosal angle measures 74 degrees. These findings are not appreciably changed as compared to prior. Hypoattenuation in the periventricular white matter is similar to prior and could be due to chronic microangiopathy. Calcific atherosclerosis is present within the cavernous segments of the internal carotid arteries. Enlarged perivascular spaces in the basal ganglia bilaterally. The soft tissues and osseous structures are normal. The sinuses and mastoid air cells are clear. CERVICAL SPINE: Vertebral body heights are normal. No fractures of the vertebral bodies or posterior elements. Grade 1 anterolisthesis of T2 on T3 measures 2 mm and is likely related to facet arthropathy. No spondylolisthesis or acute subluxation in the cervical spine. Degenerative osteophytes and sclerosis are present at the atlantodental articulation, though normal alignment is maintained. Craniocervical junction is normal. Mild multilevel degenerative disc disease throughout the cervical spine with loss of vertebral disc height, endplate osteophytes, and uncovertebral osteophytes, most notable at C6-C7. Facet arthropathy is most pronounced on the left at C2-C3 and C3-C4 and on the right at C5-C6. There is mild multilevel central canal stenosis in the cervical spine, most notably at C5-C6 and C6-C7 with mild multilevel neural foraminal encroachment No significant paravertebral soft tissue swelling. There is a 2 cm hypoattenuating left thyroid nodule which is unchanged as compared to prior. Azygos fissure in the upper lobes along with pleural parenchymal scarring and mild pulmonary emphysema. CT/CT cervical spine wo IV con IMPRESSION: 1. No acute intracranial pathology. 2. No acute fracture or acute malalignment in the cervical spine. 3. 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 4. Mild multilevel degenerative disc disease and facet arthropathy in the cervical spine. 5. A 2 cm hypoattenuating left thyroid nodule. As this is relatively stable and based on the recommendations of the ACR Incidental Thyroid Findings Committee (JACR 2015 Oct; 12(2):143-50), no imaging followup is recommended for incidental thyroid nodules without high risk imaging features in patients who have limited life expectancy or significant co-morbidities, unless clinically warranted.
--- NOTE | ~2023-11-23 | XR_ITS ---
EXAMINATION: XR KNEE, RIGHT XR KNEE, LEFT CLINICAL INFORMATION: Fall. Pain. COMPARISON: None TECHNIQUE: AP and lateral views of each knee. FINDINGS: RIGHT KNEE: Bones are osteopenic. No fracture or joint effusion. Alignment is anatomic. Mild patellofemoral compartment osteophytes. Calcific atherosclerosis in the popliteal artery. LEFT KNEE: Bones are osteopenic. No fracture or joint effusion. Alignment is anatomic. Medial compartment joint space narrowing small marginal osteophytes as well as cortical irregularity. [id number] patellofemoral compartment osteoarthritis. XR/XR knee RT 3V IMPRESSION: 1. No acute fracture or malalignment in the knees. 2. [id number] medial and patellofemoral compartment osteoarthritis in the left knee. 3. Mild patellofemoral compartment osteoarthritis in the right knee.
--- NOTE | ~2023-11-23 | CT_ITS ---
EXAMINATION: CT ABDOMEN AND PELVIS WITHOUT CONTRAST CLINICAL INFORMATION: History of fall and hip pain. COMPARISON: 10/11/2023 TECHNIQUE: Multidetector volumetric imaging was performed from the superior aspect of the liver through the pubic symphysis. Sagittal and coronal reformatted images were obtained on the technologist's workstation. This CT examination was performed using dose optimization techniques as appropriate, variously including the following: *Automated exposure control *Adjustment of mA and/or kV according to patient size (this includes techniques or standardized protocols for targeted exams where dose is matched to indication/reason for exam; i.e. extremities or head) *Use of iterative reconstruction technique DLP: 735 mGy-cm FINDINGS: Mild centrilobular emphysema within the visualized bases. No consolidation or pleural effusion. Transcatheter aortic valve replacement. Mitral valve annulus is calcified. No pericardial effusion. Liver has normal size and contour. Again noted is a simple cyst of hepatic segment 8. Also, there is a simple-appearing cyst at the posterior aspect of hepatic segment 6. Gallbladder is unremarkable. No dilated bile ducts. Pancreas is mildly atrophied. Spleen is unremarkable. Adrenal glands are normal. Kidneys are normal in size. No hydronephrosis or perinephric edema. Calyceal stone of the medial upper pole of the left kidney measures 0.6 cm AP and is too small in its transverse dimension for acquisition of an accurate density measurement. This stone is at least 550 Hounsfield units. A calyceal stone of the lateral interpolar region of left kidney measure 0.4 cm AP and is also too small for acquisition of a reliable density measurement. The ureters are unremarkable. Urinary bladder is grossly normal. The stomach is underdistended. No dilated loops of bowel. No focal bowel wall thickening, mesenteric fat stranding or free fluid. Multiple diverticula of the colon without evidence of diverticulitis. Atherosclerotic disease of the abdominal aorta and iliac arteries. 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 The standard recommendation for an abdominal aorta aneurysm of this size is imaging follow-up every 3 years to ensure stability. No retroperitoneal hematoma. No pathologic sized lymph nodes in the abdomen or pelvis. No acute findings within the abdominal wall. No uterine or adnexal mass. No pelvic free fluid. Multilevel degenerative arthropathy of the spine. Schmorl's node of the L4 superior endplate. Findings include severe facet osteoarthritis and 0.3 cm of grade 1 anterolisthesis at L3-L4 and L4-L5. Old healed fracture at the left inferior pubic ramus but lack of osseous union of the old fracture involving the superior ramus/pubic bone adjacent to the pubic symphysis. Proximal femurs are intact. No acute femoral or acetabular fracture. No soft tissue hematoma or fluid collection. CT/CT abdomen pelvis wo IV con IMPRESSION: * No acute traumatic pathology in the abdomen or pelvis. * Left nephrolithiasis without hydronephrosis. 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 * Colonic diverticulosis without diverticulitis. * Old left pubic bone fractures. No acute osseous injury in the pelvis or hips.
--- NOTE | ~2023-11-23 | XR_ITS ---
EXAMINATION: XR KNEE, RIGHT XR KNEE, LEFT CLINICAL INFORMATION: Fall. Pain. COMPARISON: None TECHNIQUE: AP and lateral views of each knee. FINDINGS: RIGHT KNEE: Bones are osteopenic. No fracture or joint effusion. Alignment is anatomic. Mild patellofemoral compartment osteophytes. Calcific atherosclerosis in the popliteal artery. LEFT KNEE: Bones are osteopenic. No fracture or joint effusion. Alignment is anatomic. Medial compartment joint space narrowing small marginal osteophytes as well as cortical irregularity. [id number] patellofemoral compartment osteoarthritis. XR/XR knee LT 3V IMPRESSION: 1. No acute fracture or malalignment in the knees. 2. Nccr-[id number] medial and patellofemoral compartment osteoarthritis in the left knee. 3. Mild patellofemoral compartment osteoarthritis in the right knee.
--- NOTE | 2023-11-23 04:36 | ECG_ITS ---
Test Reason : FALL Blood Pressure : / mmHG Vent. Rate : 083 BPM Atrial Rate : 083 BPM P-R Int : 222 ms QRS Dur : 084 ms QT Int : 402 ms P-R-T Axes : 063 012 050 degrees QTc Int : 472 ms Sinus rhythm with 1st degree A-V block Possible Left atrial enlargement Borderline ECG When compared with ECG of 22-NOV-2023 14:38, MS interval has increased Referred By: Denice Blum Electronically Signed By:WILBUR MCFARLAND
--- NOTE | 2023-11-23 04:38 | PC.NURSE ---
provider at bedside. pt is pleasant answering questions asked.
--- NOTE | 2023-11-23 04:40 | ED_ITS ---
HPI - Fall General Chief Complaint: Fall Stated Complaint: fall w/ increasing confusion Time Seen by Provider: 11/23/23 04:14 History of Present Illness HPI Narrative: Patient is an 83-year-old female was just discharged home for ocular migraine patient was placed in an upstairs bedroom by her son subsequently she fell again. Unsure patient lost consciousness. Patient stated most likely she did not. She then landed on her knees. Complaining of pain to the left back area. Patient denies any fever chills. Question head injury. C-spine was immobilized secondary to distracting injury patient is currently not on Plavix. No fever no chills. No coughing or congestion. No pain on urination. Patient from home. Lives with son. Related Data Home Medications Medication Instructions Recorded Confirmed alprazolam 0.25 mg tablet 0.25 mg PO BID PRN Anxiety 03/28/23 11/02/23 cholecalciferol (vitamin D3) 25 25 mcg PO DAILY 10/11/23 11/02/23 mcg (1,000 unit) tablet folic acid 1 mg tablet 1 mg PO DAILY 10/11/23 11/02/23 polyethylene glycol 3350 17 17 g PO DAILY PRN Constipation 10/11/23 11/02/23 gram/dose oral powder (Miralax) atorvastatin 40 mg tablet 40 mg PO DAILY 10/18/23 11/02/23 coenzyme Q10 100 mg capsule 100 mg PO DAILY PRN 10/18/23 11/02/23 losartan 25 mg tablet 25 mg PO DAILY 11/02/23 11/02/23 citalopram 10 mg tablet 10 mg PO DAILY 11/06/23 lactulose 10 gram/15 mL oral PO 11/06/23 solution (Constulose) Previous Rx's Medication Instructions Recorded cyanocobalamin (vitamin B-12) 1,000 mcg PO DAILY #30 tabs 05/22/23 1,000 mcg tablet (Vitamin B-12) hydroxyzine HCl 25 mg tablet 25 mg PO TID PRN itching #10 tabs 07/21/23 fluticasone propionate 50 2 spray intranasal DAILY #16 grams 08/14/23 mcg/actuation nasal spray,suspension lactulose 20 gram/30 mL oral 20 g (30 mL) PO DAILY PRN laxative 10/18/23 solution effect 15 days #900 mL citalopram 20 mg tablet 20 mg PO BEDTIME 90 days #90 tabs 10/23/23 docusate sodium 100 mg capsule 100 mg PO BID PRN constipation 30 11/08/23 days #60 caps benzonatate 200 mg capsule 200 mg PO TID 5 days #15 caps 11/14/23 aspirin 81 mg tablet,delayed 81 mg PO DAILY #30 tabs 11/20/23 release pantoprazole 40 mg tablet,delayed 40 mg PO DAILY #30 tabs 11/20/23 release albuterol sulfate 90 mcg/actuation 1 inh inhalation QID PRN shortness 11/21/23 aerosol inhaler of breath or wheezing 30 days #8.5 grams clopidogrel 75 mg tablet 75 mg PO DAILY 90 days #90 tabs 11/22/23 ondansetron HCl 4 mg tablet 4 mg PO Q8H PRN Nausea 7 days #21 11/22/23 tabs Allergies Allergy/AdvReac Type Severity Reaction Status Date / Time buspirone Allergy Intermediate Rash Verified 11/22/23 14:29 Sulfa (Sulfonamide Allergy Intermediate RASH Verified 11/22/23 14:29 Antibiotics) garlic [GARLIC] Allergy Unknown PER H&P Verified 11/22/23 14:29 metronidazole [From FLAGYL] Allergy Unknown OCULAR Verified 11/22/23 14:29 MIGRAINES penicillamine Allergy Unknown Unknown Verified 11/22/23 14:29 ciprofloxacin AdvReac Intermediate neuropathic Verified 11/22/23 14:29 pain lisinopril AdvReac Intermediate Cough Verified 11/22/23 14:29 nitrofurantoin AdvReac Mild GI side Verified 11/22/23 14:29 effects cefuroxime Allergy Intermediate wheezy Uncoded 11/13/23 14:39 cough/itch environmental Allergy Unknown Unknown Uncoded 11/13/23 14:39 flagyl Allergy Unknown Unknown Uncoded 11/13/23 14:39 From KEFLEX Allergy Unknown RASH Uncoded 11/13/23 14:39 Metoprolol Tartrate Allergy Unknown Unknown Uncoded 11/13/23 14:39 Sulfacet-R Allergy Unknown Unknown Uncoded 11/13/23 14:39 Review of Systems 2 Review of Systems: Positive fall positive pain to the left knee Yes all other systems are reviewed and are negative PMFSH Past Medical History Attestation statement: The following information was validated with the patient. Medical History Constipation LLQ abdominal pain Anxiety Breast cancer screening Breast pain, left Elevated vitamin B12 level Neck muscle spasm Strain of neck muscle Low back pain Pubic ramus fracture Sore throat Skin tear of upper arm without complication Head injury, acute, without loss of consciousness Fall Dizziness Medication noncompliance due to cognitive impairment RLQ abdominal pain Sinusitis Flu syndrome Precordial chest pain Atypical chest pain Cold intolerance Former smoker Pulmonary nodule Abnormal lung sounds Fever Bilateral calf pain Nausea Left lower quadrant abdominal pain Dysuria Fatigue Heart palpitations Lower extremity weakness HTN (hypertension) Aortic stenosis Obstipation Dark stools Lower abdominal pain Gastroenteritis Neck pain on right side URI (upper respiratory infection) Back pain Cough Chest pain Rhinitis Elevated BP without diagnosis of hypertension Non-rheumatic aortic stenosis Diverticulitis GERD (gastroesophageal reflux disease) Cat scratch Cat bite Epigastric discomfort Diarrhea Nausea Viral syndrome GERD (gastroesophageal reflux disease) Neuropathy Arthritis GERD (gastroesophageal reflux disease) HTN (hypertension) Irritable bowel Heart murmur Surgical History S/P TAVR (transcatheter aortic valve replacement) Hx of esophagogastroduodenoscopy Hx of colonoscopy History of tonsillectomy History of appendectomy Family History Family History Father No problems noted. Mother No problems noted. Social History Social History Household Members: Children Housing: House Are you a primary patient care associate to a significant other at home: No Do you presently have visiting nurse or other home services: No Alcohol intake: former Patient Tobacco Use Status: Former Tobacco user Quit Date: 2013 Tobacco use type: Cigarette Smoked in Last 30 Days: No e-Cigarette/Vaping Use: Never Used Second Hand Smoke Exposure: No Use of substances other than those prescribed or required for medical reasons: No Advance Directives: Yes Advance Directives on File: Yes Advance Directives Date on File: 09/21/23 service: No Current occupational status: retired Cognitive needs: No Hearing needs: No Vision needs: Yes (glasses) Physical Exam 2 Vital Signs: Vital Signs: Last Vital Signs Temp 98.1 F 11/23/23 05:19 Pulse 86 11/23/23 07:20 Resp 14 11/23/23 05:19 BP 124/77 11/23/23 07:20 Pulse Ox 98 11/23/23 05:19 O2 Del Method Room Air 11/23/23 05:19 BMI result Body Mass Index 28.3 Appearance: Alert. Oriented X3. No acute distress. Eyes: Pupils equal, round and reactive to light. ENT: Pharynx normal. Neck: Normal inspection. C-spine immobilized secondary to distracting injury No lymph nodes noted. No crepitus CVS: Normal heart rate and rhythm. Pulses normal. Normal S1 and S2. Respiratory: No respiratory distress. Breath sounds normal. No Wheezing. No clavicular tenderness elicited on palpation Abdomen: Soft and nontender. No rigidity. No distention. good BS x4 Skin: Skin warm and dry. Normal skin color. Normal skin turgor. Extremities: No lower extremity edema. Neurovascular intact to all extremities. No Lacerations. No Rash Neuro: Oriented X 3. No motor deficit. No sensory deficit. Moving all extermities. No slurred speech Medical Decision Making Medical Decision Making MDM Narrative: Patient was just discharged home yesterday. Once he got home she fell. Most likely accidental in nature. Patient denies any chest pain no fever no chills no coughing or congestion no headache at this point. CT scan of the head and CT scan C-spine was repeated. My interpretation of the CT was grossly negative for any acute evidence of bleeding no fracture. My interpretation patient's EKG showed a sinus rhythm heart rate is 80 KS QRS QTC normal there is no acute ST segment elevation. X-ray bilateral knees are negative. No acute evidence of fracture noted. Because this is patient's 2nd visit within the last 48 hours. Will get patient a physical therapy evaluation for safe discharge. Additional consultation by case management ordered. Currently in no distress. CT scan of the C-spine did show a 2 cm thyroid nodule. This will require follow-up on an outpatient basis. Differential Diagnosis Differential Diagnoses: The differential diagnosis associated with the presentation includes Contusion Lab Data 11/23/23 05:15 11/23/23 05:15 Labs: Lab Results 11/23/23 Range/Units 05:15 WBC 4.3 L (4.8-10.8) X10*3/uL RBC 3.24 L (4.20-5.50) X10*6/uL Hgb 9.8 L (12.0-16.0) g/dl Hct 29.6 L (37.0-47.0) % MCV 91.4 (80.0-98.0) fL MCH 30.2 (27.0-33.0) pg MCHC 33.1 (31.0-35.0) g/dl RDW 14.8 (11.0-16.0) % Plt Count 129 L (160-400) X10*3/uL MPV 11.7 (9.4-12.3) fL Immature Gran % (Auto) 0.2 (0.0-0.4) % Neut % (Auto) 66.7 (45-73) % Lymph % (Auto) 18.2 L (20-40) % Vigo % (Auto) 10.7 (2-11) % Eos % (Auto) 3.7 (0-4) % Baso % (Auto) 0.5 (0-2) % Lymph # (Auto) 0.8 L (1.2-4.9) X10*3/uL Vigo # (Auto) 0.5 (0.1-1.2) X10*3/uL Eos # (Auto) 0.2 (0.0-0.4) X10*3/uL Baso # (Auto) 0.0 (0.0-0.2) X10*3/uL Abs Immat Gran (auto) 0.01 (0.00-0.03) X10*3/uL Absolute Neuts (auto) 2.9 (2.0-8.3) x10*3/uL Absolute Nucleated RBC 0.000 (0.0-0.012) X10*3/uL Nucleated RBC % (auto) 0.0 (0.0-0.2) /100WBC Sodium 140 (135-145) mmol/L Potassium 3.4 (3.3-5.1) mmol/L Chloride 102 (96-108) mmol/L Carbon Dioxide 27 (22-29) mmol/L Anion Gap 14 (12-20) BUN 14 (9-16) mg/dL Creatinine 0.67 (0.5-1.4) mg/dL Estim Creat Clear Calc 62.9 Estimated GFR > 60 Random Glucose 87 (60-115) mg/dL Calcium 9.8 (8.4-10.2) mg/dL Total Creatine Kinase 112 (26-140) U/L Troponin I High Sens 8.0 D (<3.5-17.0) ng/L Discharge Plan Discharge Clinical Impression: Head injury, Arthritis Instructions: Osteoarthritis (DC), Head Injury (ED) Additional Instructions: A 2 cm nodule was noted in your thyroid gland. Please closely follow-up on an outpatient basis. Additional imaging may be required in 3-6 months Prescriptions: No Action cyanocobalamin (vitamin B-12) [Vitamin B-12] 1,000 mcg tablet 1,000 mcg PO DAILY Qty: 30 3RF fluticasone propionate 50 mcg/actuation spray,suspension 2 spray intranasal DAILY Qty: 16 0RF citalopram 20 mg tablet 20 mg PO BEDTIME 90 Days Qty: 90 1RF docusate sodium 100 mg capsule 100 mg PO BID PRN (Reason: constipation) 30 Days Qty: 60 1RF benzonatate 200 mg capsule 200 mg PO TID 5 Days Qty: 15 0RF pantoprazole 40 mg tablet,delayed release (DR/EC) 40 mg PO DAILY Qty: 30 0RF aspirin 81 mg tablet,delayed release (DR/EC) 81 mg PO DAILY Qty: 30 0RF albuterol sulfate 90 mcg/actuation HFA aerosol inhaler 1 inh inhalation QID PRN (Reason: shortness of breath or wheezing) 30 Days Qty: 8.5 0RF clopidogrel 75 mg tablet 75 mg PO DAILY 90 Days Qty: 90 1RF ondansetron HCl 4 mg tablet 4 mg PO Q8H PRN (Reason: Nausea) 7 Days Qty: 21 0RF alprazolam 0.25 mg tablet 0.25 mg PO BID PRN (Reason: Anxiety) folic acid 1 mg Tablet 1 mg PO DAILY polyethylene glycol 3350 [Miralax] 17 gram/dose Powder 17 g PO DAILY PRN (Reason: Constipation) cholecalciferol (vitamin D3) 25 mcg (1,000 unit) Tablet 25 mcg PO DAILY losartan 25 mg tablet 25 mg PO DAILY citalopram 10 mg tablet 10 mg PO DAILY lactulose [Constulose] 10 gram/15 mL solution PO coenzyme Q10 100 mg capsule 100 mg PO DAILY PRN atorvastatin 40 mg tablet 40 mg PO DAILY lactulose 20 gram/30 mL solution 20 g PO DAILY PRN (Reason: laxative effect) 15 Days Qty: 900 0RF hydroxyzine HCl 25 mg tablet 25 mg PO TID PRN (Reason: itching) Qty: 10 0RF Referrals: Nick Gomez PA-C [Primary Care Provider] -
--- NOTE | 2023-11-23 05:15 | PC.NURSE ---
pt returned from rad and labs and ekg being done.
[2023-11-23 05:20] LABS: MANUAL DIFF FLAG NO
[2023-11-23 05:23] LABS: Basophils Percent Auto 0.5 % (0-2); Eosinophils Absolute Auto 0.2 X10*3/uL (0.0-0.4); Eosinophils Percent Auto 3.7 % (0-4); Hematocrit 29.6 % (37.0-47.0); Hemoglobin 9.8 g/dl (12.0-16.0); Imm Gran Abs Auto 0.01 X10*3/uL (0.00-0.03); Imm Gran Pct Auto 0.2 % (0.0-0.4); Lymphocytes Absolute Auto 0.8 X10*3/uL (1.2-4.9); Lymphocytes Percent Auto 18.2 % (20-40); Mean Corpuscular HGB Conc 33.1 g/dl (31.0-35.0); Mean Corpuscular Hemoglobin 30.2 pg (27.0-33.0); Mean Corpuscular Volume 91.4 fL (80.0-98.0); Mean Platelet Volume 11.7 fL (9.4-12.3); Monocytes Absolute Auto 0.5 X10*3/uL (0.1-1.2); Monocytes Percent Auto 10.7 % (2-11); Neutrophils Absolute Auto 2.9 x10*3/uL (2.0-8.3); Neutrophils Percent Auto 66.7 % (45-73); Platelet Count 129 X10*3/uL (160-400); Red Blood Count 3.24 X10*6/uL (4.20-5.50); Red Cell Distribution Width 14.8 % (11.0-16.0); White Blood Count 4.3 X10*3/uL (4.8-10.8)
[2023-11-23 05:36] LABS: Anion Gap 14 (12-20); Blood Urea Nitrogen 14 mg/dL (9-16); Calcium 9.8 mg/dL (8.4-10.2); Carbon Dioxide 27 mmol/L (22-29); Chloride 102 mmol/L (96-108); Creatinine Clr Calc Pharmacy 62.9; Estimated Glomerular Filt Rate > 60; Glucose Random 87 mg/dL (60-115); Potassium 3.4 mmol/L (3.3-5.1); Sodium 140 mmol/L (135-145)
--- NOTE | 2023-11-23 08:11 | PC.NURSE ---
PT AT BEDSIDE, PT AWARE OF PLAN OF CARE.
[2023-11-23 10:34] LABS: COVID-19 Test Negative (Negative); IDNOW Serial# 152EDE1D
--- NOTE | 2023-11-23 12:08 | MHC.CM.ED ---
Received case management consult overnight. Patient came to the ER due to a fall. Work up essentially negative. Physical therapy eval completed. Rehab is recommended. It does not apepar patient has been inpatient in any facility in the past 30 days. Referral made to all 3 acute rehabs. No bed offers at this time. Patient has [employer] as a secondary insurance. They will typically pay 80% of the SNF stay. Patient will be billed 20%. [facility]. Sh[facility]hi Lim of [facility] are able to offer a bed. Met with patient in regards to discharge planning. [facility] patient[facility]. T/W spoke with patient's son, Hi, via telephone at [phone]. Hi feels [facility] is appropriate and is aware patient will be billed 20% of the SNF cost. [facility] wants to speak to Hi. Anticipate patient will d/c to [facility] via BLS when financials are discussed. Continue to monitor for d/c needs.
[2023-11-23] MEDS: Acetaminophen 325 MG TABLET 650 MG PO (12:11)
[2023-11-23] MEDS: Ondansetron ODT 4 MG TAB.RAPDIS TRANSLINGU ×2 (12:11→21:44)
--- NOTE | 2023-11-23 12:34 | PC.NURSE ---
rn asked for sitter as pt was trying to get oob of stretcher multiple times w/o assist- per charge no sitters avail. tech finding camera to set up. pt in red socks and gown.
--- NOTE | 2023-11-23 15:52 | PC.NURSE ---
report given to overflow [facility]- no bed at this time- [place] rn to notify transport when bed is avail.
--- NOTE | 2023-11-23 18:55 | MHC.CM.ED ---
Pt son/HCP Hi called. Had some concerns about insurance coverge with [employer]. Son did share that there are funds, but he would of course like the insurance to cover her therapy. Son aware that CM has nothing to do with what the insurance company covers. Also spoke to son about patients worries about her health and preoccupation with . Recommended that after rehab, son could encourage lunch at [facility] for the companionship. Pt is very social and seems like this would be good for her. Son shared that his father 3 years ago and his mother has been very different. She is very worried about dementia and some loss of STM that she has. Hi shared that his father had dementia. CM is aware that patient has a weekly telephone appointment with a therapist. CM also suggested son look into an agency for companionship, such as [facility] [employer]. This would be private pay, but it would give his mother some time with another person and hopefully help her to focus less on perceived health concerns. Hi is agreeable to trying these options. CM did task [facility] for an intake for some help at home. Asked [facility] to contact him regarding intake. Hi tells CM that they had help from [facility] for his father. CM spoke with patient. Pt is aware that Hi called CM and that we spoke about above suggestions to help her. Patient admits to being social and somewhat lonely. States it's been hard since her and that she lost 3 friends over the summer. She has also had some significant health concern, with a TAVR in August. CM stressed the importance of fellowship with people her age, for support and improving her mental health. Pt is a very smart woman and she understands this. Will hopefully be agreeable to senior center lunches after rehab. 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 CM will continue to follow for discharge needs and emotional supports.
--- NOTE | 2023-11-23 19:29 | PC.NURSE ---
this RN resumed care of pt at 1900. pharmacy bedside attempting to complete medication reconciliation. pt alert and oriented to name only. pt now tearful as she does not know where she is/why she's here. this proposal manager writer attempted to reorient pt but was unsuccessful. pt resting in bed seemingly irritated/restless. bed alarm turned on for safety precautions. pt provided w/ warm blanket. no sob/wob noted. respirations even and unlabored. call mcmahan placed within reach.
--- NOTE | 2023-11-23 20:17 | MHC.EDTECH ---
patient ambulated to BR with assist. Patient resting quietly in bed.
--- NOTE | 2023-11-23 21:45 | PC.NURSE ---
Addendum entered by Agustina Morales 11/23/23 23:05: medication effective post medication administration. Original Note: pt verbalizes feeling nauseous at this time - PA Ty notified/aware. one time dose of zofran administered at this time. effectiveness pending.
--- NOTE | 2023-11-23 22:20 | MHC.EDTECH ---
T/W has had to redirect Bella several times this shift.She keeps trying to get out of bed , she walked to the bathroom on her own , she is very unsteady on her feet ,she does not seem to understand that she is a fall risk .Patient agitated about being here and upset that we wont let her walk on her own. T/W tried to explain about previous falls which brought her here to the ED. Pt insists that it wasn't a big fall and she can walk on her own. Patient also continues to ask about her medications ,that are at home. Patient asked to be driven home to get her medications off the kitchen counter. Patient found to have $ 71 .00 in quan in her wallet as well as a bottle of alprazolam in her purse. Medication taken and given to charge nurse Roseann. Bella is also complaining of nausea med given by nurse.
--- NOTE | 2023-11-23 22:25 | PHA.MEDREC ---
Pharmacy Consult ? Medication Reconciliation Pharmacy has completed the medication reconciliation. Spoke to patient's son Hi over the phone. He said patient is not compliant with her medications and she picks and choose the medications to take for the day. She is not taking atorvastatin right now because waiting for blood work to be done per md's order. Her citalopram has been going up and down, but he is certain she's taking 20 mg daily right now. He is unsure if she's taking losartan.
--- NOTE | 2023-11-23 22:38 | PC.NURSE ---
pt continuously attempting to get out of bed despite bed alarm being turned on for safety precautions. pt is not easy to redirect as she continuously ambulates to the restroom w/ an unsteady gait. 1:1 assist is needed as the pt is unsteady on her feet. pt is hyper-fixated on trying to find her son keerthi and to look for her medication that's in the dining room around the corner. this RN and automotive drivability technician have made multiple attempts to reorient pt but have been unsuccessful. pt remains alert and oriented to self only as well as pleasantly confused. pt's son keerthi called to speak about concerns in regards to his mother's medication. pt's son made aware that pharmacy is currently still completing medication reconciliation and medication will be administered when able. pt used phone was able to have a conversation w/ her son. pt has currently been placed back in bed. bed alarm turned back on for safety precautions. respirations remain even and unlabored. call mcmahan placed within reach.
--- NOTE | 2023-11-23 23:45 | PC.NURSE ---
anaesthetic technicianBella found a prescription bottle of Xanax in pt's purse bedside. anaesthetic technician gave medication to this RN. medication envelope filled out in overflow. witnessed signature by receiving float RNLary in overflow. this RN gave medication envelope to lithopone chargerSymone at this time d/t pharmacy being closed.
--- NOTE | 2023-11-24 00:14 | PC.NURSE ---
Assumed care of patient at 23:30 on 11/22. Patient seen in ED overflow. Pt is A&Ox1 to self only and requiring frequent redirecting and reorienting, confused, anxious. Pt requesting her night meds . New 23:00 order for citalopram in place and pt has prn order for xanax for anxiety. RN attempted to pull medications from pyxis though no meds are being found or pulled up when patient's name is typed in; the screen is appearing blank under patient's name. ED garment manufacturer [employer] was contacted in hopes of obtaining patient's medications; computer operations supervisor stated ED pyxis machines are also frozen and meds are unable to be pulled at this time. RN fertilizer processing supervisor contacted in attempt to obtain medications from a different pyxis outside of the ED. Awaiting call back at this time. Safety measures including bed alarm and frequent redirecting continue.
[2023-11-24] MEDS: Ondansetron ODT 4 MG TAB.RAPDIS TRANSLINGU ×2 (01:03→09:39)
[2023-11-24] MEDS: ALPRAZolam 0.25 MG TABLET PO (01:03)
[2023-11-24 02:03] VITALS: RESP 18
[2023-11-24 04:54] VITALS: BP 152/76; PULSE 92; RESP 16; TEMP 36.4; O2SAT 93
--- NOTE | 2023-11-24 06:52 | PC.NURSE ---
Assumed care of patient at 23:30 (11/22). Pt seen in ED overflow as PT/CM pt, pending disposition/placement to LTC. Pt is A&Ox1 to self only. Confused, impulsive, requires frequent redirecting. Pt medicated with prn xanax for anxiety per pt request as soon as med was available due to pyxis issues. +Effect. VSS. Breathing is even and unlabored without distress on RA. No n/v. Pt denies pain and offers no acute complaints. Pt MAEE without issue and ambulates to the BR steadily with a standby assist. Patient observed resting in bed in no apparent distress on hourly rounds. Bed alarm on and safety measures in place. Handoff report given to oncoming RN at 06:45.
[2023-11-24] MEDS: Folic Acid 1 MG TABLET 0.5 MG PO (08:22)
[2023-11-24] MEDS: Aspirin Enteric Coated 81 MG TABLET.DR PO (08:22)
[2023-11-24] MEDS: Clopidogrel Bisulfate 75 MG TABLET PO (08:22)
[2023-11-24] MEDS: Cholecalciferol (Vitamin D3) 25 MCG TABLET 50 MCG PO (08:23)
[2023-11-24] MEDS: Famotidine 20 MG TABLET PO (08:24)
--- NOTE | 2023-11-24 09:03 | PC.NURSE ---
this RN resumed care of pt at 0645. no acute events noted by previous RN aside from pt needing constant redirection back into bed. pt currently alert and oriented to herself. pt very confused on where she is/why she's here. this RN attempted to reorient pt multiple times but she does not seem to understand. 1:1 assist needed when ambulating to the restroom as presents w/ an unsteady gait. pt c/o lower back pain but denies offer for prn medication. pt medicated w/ scheduled medications per provider order. no sob/wob noted. respirations even and unlabored. bed alarm turned on/safety precautions in place. call mcmahan placed within reach.
--- NOTE | 2023-11-24 09:45 | PC.NURSE ---
1:1 assist needed while taking a shower. TRANSMITTER SUPERVISOR w/ pt helping perform ADLs in regards to personal hygiene and ambulation to and from bathroom. when placed back in bed, pt states she was feeling nauseous. prn comfortfran utilized. effectiveness pending. bed alarm turned on/safety precautions in place. call mcmahan placed within reach.
--- NOTE | 2023-11-24 10:27 | MHC.CM.ED ---
Addendum entered by Debo Shelley 11/24/23 15:05: Patient's son Hi concered about patient's Plavix. Patient's pharmacy has requested refills from Alberto Gomez's office twice without success. T/W sent a message to Alber[facility] via [employer]. Alberto aware and will send a Rx for Plavix to patient's pharmacy. Original Note: Patient remains in ER overflow. [facility] PASRR Level 2 obtained. Patient can leave at 12pm. He MORGAN booked. [facility] with chart. Patient, son HiAgustina RN and Mikaela GAVIN aware. Continue to monitor for d/c needs.
[2023-11-24] MEDS: Acetaminophen 325 MG TABLET 650 MG PO (10:38)
--- NOTE | 2023-11-24 10:44 | PC.NURSE ---
per case management, plan is for pt to be d/c'd to [facility] via [facility] around 1200 today. pt notified/aware of plan. this RN spoke w/ pt's son Brenton on the phone. pt's son states that he will be visiting shortly/to bring her a change of clothes prior to being discharged via BLS. pt also verbalizing prn zofran was not effective. pt also c/o lower back pain as well as FUENTES - pt medicated per prn order. effectiveness pending. pt continues to rest in bed in no apparent distress. pt provided w/ snacks upon request. bed alarm turned on for safety precautions. call mcmahan placed within reach.
--- NOTE | 2023-11-24 12:40 | PC.NURSE ---
report given to yumiko as well as RN at [facility].
[2023-11-24 13:40] VITALS: BP 152/76; PULSE 92; RESP 16; TEMP 36.4; O2SAT 93
== END 2023-11-24 13:50 ==
PROVIDERS: Physician Assistant Medical; Emergency Provider Emergency Medicine Emergency Medical Services; PCP Physician Assistant
DX: S09.90XA Unspecified injury of head, initial encounter (principal); M54.2 Cervicalgia; I44.0 Atrioventricular block, first degree; R41.0 Disorientation, unspecified; R94.31 Abnormal electrocardiogram [ECG] [EKG]; R26.2 Difficulty in walking, not elsewhere classified; M25.562 Pain in left knee; M25.561 Pain in right knee; R51.9 Headache, unspecified; W01.10XA Fall on same level from slipping, tripping and stumbling with subsequent striking against unspecified object, initial encounter; Y93.9 Activity, unspecified; Y92.9 Unspecified place or not applicable; Y99.8 Other external cause status; Z79.899 Other long term (current) drug therapy; Z87.891 Personal history of nicotine dependence; Z11.52 Encounter for screening for COVID-19; Z20.822 Contact with and (suspected) exposure to COVID-19
CPT/HCPCS: 36415; 70450; 72125; 73562; 74176; 80048; 82550; 84484; 85025; 87635; 93005; 97162; 99285

== ENCOUNTER → 2023-11-23 04:36 | Outpatient (BNV) | payer MEDICARE, OTHER, SELFPAY | PROVIDERS: Emergency Provider Emergency Medicine Emergency Medical Services; PCP Physician Assistant; Visit Provider Internal Medicine | DX: I44.0 Atrioventricular block, first degree (principal) | CPT/HCPCS: 93010 ==

== ENCOUNTER 2023-12-17 08:21 | Emergency (ER) | payer MEDICARE, OTHER, SELFPAY ==
--- NOTE | ~2023-12-17 | US_ITS ---
EXAMINATION: US ABDOMEN LIMITED CLINICAL INFORMATION: Right upper quadrant pain. COMPARISON: None available. TECHNIQUE: Real-time imaging of the right upper quadrant abdominal viscera focused primarily on the gallbladder. FINDINGS: LIVER: Imaged portion is normal in appearance with normal echogenicity and contour. No lesions or ductal dilatation is identified. GALLBLADDER: There is a single 4 mm mobile, dependent intraluminal gallstone. The gallbladder is physiologically distended without evidence of sludge, polyps, wall thickening or pericholecystic fluid. COMMON BILE DUCT: Normal in caliber measuring 0.3 cm in diameter. FREE FLUID: No incidentally noted free fluid. US/US abdomen limited IMPRESSION: Cholelithiasis without evidence of acute cholecystitis.
[2023-12-17 08:26] VITALS: BP 118/85; PULSE 93; RESP 16; TEMP 36.7; O2SAT 95; BMI 25.3
--- NOTE | 2023-12-17 08:45 | ED.ABDPAIN ---
HPI - Abdominal Pain General Chief Complaint: Abdominal Pain Stated Complaint: Pain R side Time Seen by Provider: 12/17/23 08:45 Source: patient and family Mode of arrival: ambulatory Limitations: no limitations History of Present Illness HPI narrative: 83-year-old female history of memory impairment,anxiety, depression, frequent falls (recently discharged from [facility]), hypertension, aortic stenosis, embolic stroke, diverticulitis, GERD, hypertension, irritable bowel disease presenting to the emergency department for complaints of right upper abdominal pain with associated nausea for the past week also reporting some discomfort with urination and darker urine than usual. She reports she just has not been feeling right. Denies fevers, chills, vomiting, vision changes, dizziness, weakness, chest pain, shortness of breath, diarrhea, blood in urine, blood in stool, sick contacts. Hx of appendectomy but still has gallbladder Related Data Home Medications ?Medication ?Instructions ?Recorded ?Confirmed alprazolam 0.25 mg tablet 0.25 mg PO BID PRN Anxiety 03/28/23 11/23/23 polyethylene glycol 3350 17 17 g PO DAILY PRN Constipation 10/11/23 11/02/23 gram/dose oral powder (Miralax) coenzyme Q10 100 mg capsule 100 mg PO DAILY PRN memory 10/18/23 11/23/23 losartan 25 mg tablet 25 mg PO DAILY 11/02/23 11/02/23 aspirin 81 mg tablet,delayed 81 mg PO QAM 11/23/23 11/23/23 release cholecalciferol (vitamin D3) 50 50 mcg PO DAILY 11/23/23 11/23/23 mcg (2,000 unit) tablet (Vitamin D3) clopidogrel 75 mg tablet 75 mg PO QAM 11/23/23 11/23/23 fluticasone propionate 50 2 spray intranasal DAILY PRN 11/23/23 11/23/23 mcg/actuation nasal Allergic Symptoms spray,suspension folic acid 400 mcg tablet 0.4 mg PO DAILY 11/23/23 11/23/23 pantoprazole 40 mg tablet,delayed 40 mg PO QAM 11/23/23 11/23/23 release Previous Rx's ?Medication ?Instructions ?Recorded citalopram 20 mg tablet 20 mg PO BEDTIME 90 days #90 tabs 10/23/23 docusate sodium 100 mg capsule 100 mg PO BID PRN constipation 30 11/08/23 days #60 caps albuterol sulfate 90 mcg/actuation 1 inh inhalation QID PRN shortness 11/21/23 aerosol inhaler of breath or wheezing 30 days #8.5 grams alprazolam 0.25 mg tablet (Xanax) 0.25 mg PO TID PRN anxiety #20 tabs 11/24/23 ondansetron HCl 4 mg tablet 4 mg PO Q8H PRN Nausea 7 days #21 12/14/23 tabs acetaminophen 325 mg capsule 325 mg PO Q4H PRN pain #30 caps 12/17/23 (Tylenol) cefuroxime axetil 250 mg tablet 250 mg PO BID 7 days #14 tabs 12/17/23 ondansetron 4 mg disintegrating 4 mg PO Q6H PRN nausea and 12/17/23 tablet vomiting #14 tabs Allergies Allergy/AdvReac Type Severity Reaction Status Date / Time buspirone Allergy Intermediate Rash Verified 12/17/23 08:29 Sulfa (Sulfonamide Allergy Intermediate RASH Verified 12/17/23 08:29 Antibiotics) garlic [GARLIC] Allergy Unknown PER H&P Verified 12/17/23 08:29 metronidazole [From FLAGYL] Allergy Unknown OCULAR Verified 12/17/23 08:29 MIGRAINES penicillamine Allergy Unknown Unknown Verified 12/17/23 08:29 ciprofloxacin AdvReac Intermediate neuropathic Verified 12/17/23 08:29 pain lisinopril AdvReac Intermediate Cough Verified 12/17/23 08:29 nitrofurantoin AdvReac Mild GI side Verified 12/17/23 08:29 effects cefuroxime Allergy Intermediate wheezy Uncoded 12/17/23 08:29 cough/itch environmental Allergy Unknown Unknown Uncoded 12/17/23 08:29 flagyl Allergy Unknown Unknown Uncoded 12/17/23 08:29 From KEFLEX Allergy Unknown RASH Uncoded 12/17/23 08:29 Metoprolol Tartrate Allergy Unknown Unknown Uncoded 12/17/23 08:29 Sulfacet-R Allergy Unknown Unknown Uncoded 12/17/23 08:29 Review of Systems Review of Systems Yes all other systems are reviewed and are negative PMFSH Past Medical History Attestation statement: The following information was validated with the patient. Source: old records reviewed and nursing notes reviewed Medical History Constipation LLQ abdominal pain Anxiety Breast cancer screening Breast pain, left Elevated vitamin B12 level Neck muscle spasm Strain of neck muscle Low back pain Pubic ramus fracture Sore throat Skin tear of upper arm without complication Head injury, acute, without loss of consciousness Fall Dizziness Medication noncompliance due to cognitive impairment RLQ abdominal pain Sinusitis Flu syndrome Precordial chest pain Atypical chest pain Cold intolerance Former smoker Pulmonary nodule Abnormal lung sounds Fever Bilateral calf pain Nausea Left lower quadrant abdominal pain Dysuria Fatigue Heart palpitations Lower extremity weakness HTN (hypertension) Aortic stenosis Obstipation Dark stools Lower abdominal pain Gastroenteritis Neck pain on right side URI (upper respiratory infection) Back pain Cough Chest pain Rhinitis Elevated BP without diagnosis of hypertension Non-rheumatic aortic stenosis Diverticulitis GERD (gastroesophageal reflux disease) Cat scratch Cat bite Epigastric discomfort Diarrhea Nausea Viral syndrome GERD (gastroesophageal reflux disease) Neuropathy Arthritis GERD (gastroesophageal reflux disease) HTN (hypertension) Irritable bowel Heart murmur Surgical History S/P TAVR (transcatheter aortic valve replacement) Hx of esophagogastroduodenoscopy Hx of colonoscopy History of tonsillectomy History of appendectomy Family History Family History Father No problems noted. Mother No problems noted. Social History Social History Household Members: Children Housing: House Are you a primary small animal caretaker to a significant other at home: No Do you presently have visiting nurse or other home services: No Alcohol intake: former Patient Tobacco Use Status: Former Tobacco user Quit Date: 2013 Tobacco use type: Cigarette Smoked in Last 30 Days: No e-Cigarette/Vaping Use: Never Used Second Hand Smoke Exposure: No Use of substances other than those prescribed or required for medical reasons: No Advance Directives: Yes Advance Directives on File: Yes Advance Directives Date on File: 09/21/23 service: No Current occupational status: retired Cognitive needs: No Hearing needs: No Vision needs: Yes (glasses) Physical Exam ED Vital Signs: Vital Signs - 24 hr 12/17/23 08:26 12/17/23 10:22 Temperature 98.1 F 97.6 F Pulse Rate 93 80 Respiratory Rate 16 16 Blood Pressure 118/85 150/83 H Pulse Oximetry 95 99 Oxygen Delivery Method Room Air Room Air BMI result Body Mass Index 25.3 vss Appearance: Alert.? Oriented X3.? No acute distress.? Head: Normocephalic, atraumatic, no step-offs or deformities Eyes: Pupils equal, round and reactive to light.? Neck: Normal inspection.? Neck supple.? CVS: Normal heart rate and rhythm.? Pulses normal.? Respiratory: No respiratory distress.? Breath sounds normal.? Abdomen: Soft and mild discomfort in the right upper quadrant Skin: Skin warm and dry.? Normal skin color.? Normal skin turgor.? Extremities: No lower extremity edema.? No calf ttp. 5/5 strength to bilateral upper and lower extremities Neuro: Oriented X 3.? No motor deficit.? No sensory deficit. CN 2-12 intact Course Reevaluation(s) Reevaluation #1: CBC with baseline leukopenia and normocytic anemia. Unchanged. Chemistry no acute findings requiring intervention slightly elevated BUN and creatinine when compared to baseline however patient tolerating p.o. educated on this, encourage p.o. hydration. UA with infection. US limited abdomen with cholelithiasis without acute cholecystitis. Will discharge patient with Ceftin. No history of anaphylaxis to this or penicillins. Will have her follow-up with general surgery. Educated patient on diagnosis and treatment plan, answered all question, patient verbalizes understanding. At this time patient will be discharged home, advised to return with new or worsening symptoms. Educated on worrisome signs and symptoms and when to return. At this time I feel comfortable discharge home. Time: 11:22 Medical Decision Making Medical Decision Making [facility] Narrative: 83-year-old female presents with right uppwer abdominal discomfort and UTI symptoms for the past week also reporting associated nausea. Here with son Physical mild discomfort in the right upper quadrant. History and physical exam concerning for viral illness versus UTI versus cystitis vs cholecystitis . Unlikely appendicitis, acute abdomen, diverticulitis, obstruction, pancreatitis, cholangitis, choledocholithiasis, mesenteric ischemia. Unlikely kidney stone unlikely torsion. Plan at this time basic labs, urine, ultrasound Differential Diagnosis Differential Diagnoses: The differential diagnosis associated with the presentation includes History and physical exam concerning for viral illness versus UTI versus cystitis vs cholecystitis . Unlikely appendicitis, acute abdomen, diverticulitis, obstruction, pancreatitis, cholangitis, choledocholithiasis, mesenteric ischemia. Unlikely kidney stone unlikely torsion. Admission/Observation Consideration of admission/observation: Escalation of care including admission/observation considered possible Lab Data MDM Lab Attestation statement: I reviewed the patient's lab results. 12/17/23 09:47 12/17/23 09:47 Labs: Lab Results 12/17/23 12/17/23 Range/Units 09:47 10:53 WBC 4.1 L (4.8-10.8) X10*3/uL RBC 3.25 L (4.20-5.50) X10*6/uL Hgb 9.7 L (12.0-16.0) g/dl Hct 29.4 L (37.0-47.0) % MCV 90.5 (80.0-98.0) fL MCH 29.8 (27.0-33.0) pg MCHC 33.0 (31.0-35.0) g/dl RDW 13.9 (11.0-16.0) % Plt Count 161 (160-400) X10*3/uL MPV 11.2 (9.4-12.3) fL Immature Gran % (Auto) 0.7 H (0.0-0.4) % Neut % (Auto) 76.2 H (45-73) % Lymph % (Auto) 13.9 L (20-40) % Morrill % (Auto) 6.1 (2-11) % Eos % (Auto) 2.9 (0-4) % Baso % (Auto) 0.2 (0-2) % Lymph # (Auto) 0.6 L (1.2-4.9) X10*3/uL Morrill # (Auto) 0.3 (0.1-1.2) X10*3/uL Eos # (Auto) 0.1 (0.0-0.4) X10*3/uL Baso # (Auto) 0.0 (0.0-0.2) X10*3/uL Abs Immat Gran (auto) 0.03 (0.00-0.03) X10*3/uL Absolute Neuts (auto) 3.1 (2.0-8.3) x10*3/uL Absolute Nucleated RBC 0.000 (0.0-0.012) X10*3/uL Nucleated RBC % (auto) 0.0 (0.0-0.2) /100WBC Sodium 139 (135-145) mmol/L Potassium 4.1 D (3.3-5.1) mmol/L Chloride 103 (96-108) mmol/L Carbon Dioxide 28 (22-29) mmol/L Anion Gap 12 (12-20) BUN 25 H (9-16) mg/dL Creatinine 1.01 (0.5-1.4) mg/dL Estim Creat Clear Calc 39.4 Estimated GFR 52 Random Glucose 93 (60-115) mg/dL Calcium 9.8 (8.4-10.2) mg/dL Total Bilirubin 0.4 (0.0-1.0) mg/dL AST 15 (5-31) U/L ALT 9 (0-31) U/L Alkaline Phosphatase 185 H (39-117) U/L Total Protein 6.7 (6.5-8.0) g/dL Albumin 3.7 (3.5-5.0) g/dL Lipase 22 (8-78) U/L Urine Color Yellow Urine Appearance Cloudy Urine pH 5.5 (5.0-9.0) Ur Specific [place] 1.015 (1.005-1.025) Urine Protein Negative (Neg-Trace) mg/dL Urine Glucose (UA) Negative (Negative) mg/dL Urine Ketones Negative (Negative) mg/dL Urine Blood Negative (Negative) Urine Nitrite Positive H (Negative) Ur Leukocyte Esterase Moderate (2+) H (Negative) Urine RBC 0-2 (0-2) /HPF Urine WBC >50 H (0-5) /HPF Ur Squamous Epith Cells 3-5 (0-2) /HPF Urine Bacteria 4+ (None Seen) Hyaline Casts 3-5 (0-2) /LPF Independent Interpretation I performed an independent interpretation of an: CT Scan Radiology Impression Discussion of test interpretation with radiology: I have reviewed the radiologist's reading. Independent Historian Clinical information obtained from an independent historian. History obtained from or confirmed by: Other (son) External Record Review External record reviewed: Inpatient record, Office record, Outpatient record, Prior outpatient labs, Prior outpatient radiology, Primary care record and Outside ED record Chronic Conditions Patient?s care impacted by: Hypertension and Other (anxiety, depression, memory impairment ) Medications Administered Discontinued Medications Generic Name Dose Route Start Last Admin Trade Name Freq PRN Reason Stop Dose Admin Alprazolam 0.25 mg 12/17/23 10:15 12/17/23 10:28 Alprazolam 0.25 Mg Tablet PO 12/17/23 10:16 0.25 mg ONCE ONE Administration Morphine Sulfate 15 mg 12/17/23 08:57 12/17/23 09:38 Morphine Sulfate Immed Release 15 Mg Tablet PO 12/17/23 08:58 Not Given ONCE ONE Ondansetron HCl 4 mg 12/17/23 08:58 12/17/23 09:37 Ondansetron Odt 4 Mg Tab.Rapdis TRANSLINGU 12/17/23 08:59 4 mg ONCE ONE Administration Discharge Plan Discharge Clinical Impression: Abdominal pain, RUQ, Cholecystitis, Acute UTI Patient Disposition: Home, Self-Care Instructions: Urinary Tract Infection in Women (ED), Abdominal Pain (ED) Additional Instructions: Take your medications as prescribed. If you were prescribed antibiotics today, it is important that you take your medication to their entirety, do not skip any doses, do not finish them early. Follow-up with your primary care provider this week. Return to the emergency department with new or worsening symptoms. Such as fevers, chills, chest pain, shortness of breath, nausea, vomiting, dizziness, headache, vision changes, lethargy In case of emergency call 911 Follow up with general surgery to discuss your gallbladder US/US abdomen limited IMPRESSION: Cholelithiasis without evidence of acute cholecystitis. Prescriptions: New ondansetron 4 mg tablet,disintegrating 4 mg PO Q6H PRN (Reason: nausea and vomiting) Qty: 14 0RF cefuroxime axetil 250 mg tablet 250 mg PO BID 7 Days Qty: 14 0RF acetaminophen [Tylenol] 325 mg capsule 325 mg PO Q4H PRN (Reason: pain) Qty: 30 0RF No Action citalopram 20 mg tablet 20 mg PO BEDTIME 90 Days Qty: 90 1RF docusate sodium 100 mg capsule 100 mg PO BID PRN (Reason: constipation) 30 Days Qty: 60 1RF albuterol sulfate 90 mcg/actuation HFA aerosol inhaler 1 inh inhalation QID PRN (Reason: shortness of breath or wheezing) 30 Days Qty: 8.5 0RF ondansetron HCl 4 mg tablet 4 mg PO Q8H PRN (Reason: Nausea) 7 Days Qty: 21 0RF pantoprazole 40 mg tablet,delayed release (DR/EC) 40 mg PO QAM fluticasone propionate 50 mcg/actuation spray,suspension 2 spray intranasal DAILY PRN (Reason: Allergic Symptoms) clopidogrel 75 mg tablet 75 mg PO QAM aspirin 81 mg tablet,delayed release (DR/EC) 81 mg PO QAM folic acid 400 mcg Tablet 0.4 mg PO DAILY cholecalciferol (vitamin D3) [Vitamin D3] 50 mcg (2,000 unit) Tablet 50 mcg PO DAILY alprazolam [Xanax] 0.25 mg tablet 0.25 mg PO TID PRN (Reason: anxiety) Qty: 20 0RF alprazolam 0.25 mg tablet 0.25 mg PO BID PRN (Reason: Anxiety) polyethylene glycol 3350 [Miralax] 17 gram/dose Powder 17 g PO DAILY PRN (Reason: Constipation) losartan 25 mg tablet 25 mg PO DAILY coenzyme Q10 100 mg capsule 100 mg PO DAILY PRN (Reason: memory) [place] [facility] [facility] [place] Group] - 3 days Nick Gomez PA-C [Primary Care Provider] - 2 days Print Language: Brazilian
--- NOTE | 2023-12-17 09:18 | PC.NURSE ---
BEDSIDE ULTRASOUND IS BEING DONE AT THIS TIME.
[2023-12-17] MEDS: Ondansetron ODT 4 MG TAB.RAPDIS TRANSLINGU (09:37)
--- NOTE | 2023-12-17 09:59 | PC.NURSE ---
PT A/O X 3 NO SOB/KYLER NOTD SPEAKS IN FULL SENTENCES. VERY PLEASANT. PT C/O R SIDE ABD PAIN 5/10. NO EDEMA NOTED. PT AWARE OF PLAN OF CARE WILL CONTINUE TO MONITOR.
[2023-12-17 10:01] LABS: MANUAL DIFF FLAG NO
[2023-12-17 10:02] LABS: Basophils Percent Auto 0.2 % (0-2); Eosinophils Absolute Auto 0.1 X10*3/uL (0.0-0.4); Eosinophils Percent Auto 2.9 % (0-4); Hematocrit 29.4 % (37.0-47.0); Hemoglobin 9.7 g/dl (12.0-16.0); Imm Gran Abs Auto 0.03 X10*3/uL (0.00-0.03); Imm Gran Pct Auto 0.7 % (0.0-0.4); Lymphocytes Absolute Auto 0.6 X10*3/uL (1.2-4.9); Lymphocytes Percent Auto 13.9 % (20-40); Mean Corpuscular Hemoglobin 29.8 pg (27.0-33.0); Mean Corpuscular Volume 90.5 fL (80.0-98.0); Mean Platelet Volume 11.2 fL (9.4-12.3); Monocytes Absolute Auto 0.3 X10*3/uL (0.1-1.2); Monocytes Percent Auto 6.1 % (2-11); Neutrophils Absolute Auto 3.1 x10*3/uL (2.0-8.3); Neutrophils Percent Auto 76.2 % (45-73); Platelet Count 161 X10*3/uL (160-400); Red Blood Count 3.25 X10*6/uL (4.20-5.50); Red Cell Distribution Width 13.9 % (11.0-16.0); White Blood Count 4.1 X10*3/uL (4.8-10.8)
[2023-12-17 10:22] VITALS: BP 150/83; PULSE 80; RESP 16; TEMP 36.4; O2SAT 99
[2023-12-17 10:22] LABS: Alanine Aminotransferase 9 U/L (0-31); Albumin Level 3.7 g/dL (3.5-5.0); Alkaline Phosphatase 185 U/L (39-117); Anion Gap 12 (12-20); Aspartate Amino Transferase 15 U/L (5-31); Bilirubin Total 0.4 mg/dL (0.0-1.0); Blood Urea Nitrogen 25 mg/dL (9-16); Calcium 9.8 mg/dL (8.4-10.2); Carbon Dioxide 28 mmol/L (22-29); Chloride 103 mmol/L (96-108); Creatinine Clr Calc Pharmacy 39.4; Estimated Glomerular Filt Rate 52; Glucose Random 93 mg/dL (60-115); Lipase 22 U/L (8-78); Potassium 4.1 mmol/L (3.3-5.1); Sodium 139 mmol/L (135-145); Total Protein 6.7 g/dL (6.5-8.0)
[2023-12-17] MEDS: ALPRAZolam 0.25 MG TABLET PO (10:28)
[2023-12-17 11:02] LABS: Appearance Urine Cloudy; Color Urine Yellow; Glucose Urine UA Negative (Negative); Leukocyte Esterase Urine Moderate (2+) (Negative); Nitrite Urine Positive (Negative); PH 5.5 (5.0-9.0); Specific Gravity - Urine 1.015 (1.005-1.025); UMIC TRIGGER UACC YES; Urine Blood Negative (Negative); Urine Ketones Negative (Negative); Urine Protein Negative (Neg-Trace)
[2023-12-17 11:07] LABS: Bacteria Urine 4+ (None Seen); RBC Urine 0-2 /HPF (0-2); UACC Culture Trigger YES; WBC Urine >50 /HPF (0-5)
[2023-12-17 12:15] VITALS: BP 115/65; PULSE 90; RESP 17; TEMP 36.7; O2SAT 96
[2023-12-17] MEDS: cefuroxime axetiL 250 MG TABLET PO (12:15)
[2023-12-17 12:56] VITALS: BP 115/65; PULSE 90; RESP 17; TEMP 36.7; O2SAT 96
== END 2023-12-17 12:57 | disposition home or self-care (01) ==
PROVIDERS: Physician Assistant; Emergency Provider Student in an Organized Health Care Education/Training Program; PCP Physician Assistant
DX: K81.9 Cholecystitis, unspecified (principal); N39.0 Urinary tract infection, site not specified; I10 Essential (primary) hypertension; Z88.1 Allergy status to other antibiotic agents; Z88.2 Allergy status to sulfonamides
CPT/HCPCS: 36415; 76705; 80053; 81001; 81003; 83690; 85025; 87086; 87088; 87186; 99284

== ENCOUNTER 2023-12-27 16:18 | Outpatient (AMB) | payer MEDICARE, OTHER, SELFPAY ==
[2023-12-27 16:22] VITALS: BP 138/64; PULSE 96; O2SAT 95; BMI 26.5
--- NOTE | 2023-12-27 16:22 | MHC.PC.OV ---
Vital Signs 12/27/23 16:22 Height 5 ft 6 in Weight 164 lb BMI 26.5 BP 138/64 Blood Pressure Location Lt brachial Position Sitting Pulse 96 Pulse Source Pulse Oximeter Pulse Oximetry (%) 95 Oxygen Delivery Method Room Air Intake Visit Reasons: Ear/Neck Pain Intake Note: The patient is presenting with a right earache that has been persisting for a couple of weeks. Currently, the pain is spreading to the neck. Although she has been using ear drops, they provide temporary relief, but the earache returns afterward. Mechanical Unit Repairer Required: No Accompanied by: Self / Same As Patient Allergies buspirone Allergy (Intermediate, Verified 12/27/23 16:22) Rash Sulfa (Sulfonamide Antibiotics) Allergy (Intermediate, Verified 12/27/23 16:22) RASH garlic [GARLIC] Allergy (Unknown, Verified 12/27/23 16:22) PER H&P metronidazole [From FLAGYL] Allergy (Unknown, Verified 12/27/23 16:22) OCULAR MIGRAINES penicillamine Allergy (Unknown, Verified 12/27/23 16:22) Unknown ciprofloxacin Adverse Reaction (Intermediate, Verified 12/27/23 16:22) neuropathic pain lisinopril Adverse Reaction (Intermediate, Verified 12/27/23 16:22) Cough nitrofurantoin Adverse Reaction (Mild, Verified 12/27/23 16:22) GI side effects cefuroxime Allergy (Intermediate, Uncoded 12/17/23 08:29) wheezy cough/itch environmental Allergy (Unknown, Uncoded 12/17/23 08:29) Unknown flagyl Allergy (Unknown, Uncoded 12/17/23 08:29) Unknown From KEFLEX Allergy (Unknown, Uncoded 12/17/23 08:29) RASH Metoprolol Tartrate Allergy (Unknown, Uncoded 12/17/23 08:29) Unknown Sulfacet-R Allergy (Unknown, Uncoded 12/17/23 08:29) Unknown Medication List - Last Reconciled 12/27/23 by Nick Gomez PA-C acetaminophen (Tylenol) 325 mg PO Q4H PRN albuterol sulfate 90 mcg/actuation 1 inh inhalation QID PRN 30 days alprazolam (Xanax) 0.25 mg PO TID PRN alprazolam 0.25 mg PO BID PRN aspirin 81 mg PO QAM cefuroxime axetil 250 mg PO BID 7 days cholecalciferol (vitamin D3) (Vitamin D3) 50 mcg PO DAILY citalopram 20 mg PO BEDTIME 90 days clopidogrel 75 mg PO QAM coenzyme Q10 100 mg PO DAILY PRN docusate sodium 100 mg PO BID PRN 30 days fluticasone propionate 50 mcg/actuation 2 sprays intranasal DAILY PRN folic acid 0.4 mg PO DAILY losartan 25 mg PO DAILY ondansetron 4 mg PO Q6H PRN ondansetron HCl 4 mg PO Q8H PRN 7 days pantoprazole 40 mg PO QAM polyethylene glycol 3350 (Miralax) 17 grams PO DAILY PRN Tobacco use date assessed: 09/27/23 Fall risk assessment: No Falls in past year Last assessed Fall Risk: 12/27/23 Dental Screening Dental Screen Date: 10/18/23 HPI Ear/Neck Pain HPI Details Patient is a 83-year-old female here today for problem visit. She Report having right ear pain and right postier ear pain over the last 3 weeks which has gotten better over the last few days. She reports the pain is mostly located behind her ear and radiates down the lateral aspect of her neck. Of note recently treated with an antibiotic for UTI. No issues with hearing. [facility] Medical History Constipation LLQ abdominal pain Anxiety Breast cancer screening Breast pain, left Elevated vitamin B12 level Neck muscle spasm Strain of neck muscle Low back pain Pubic ramus fracture Sore throat Skin tear of upper arm without complication Head injury, acute, without loss of consciousness Fall Dizziness Medication noncompliance due to cognitive impairment RLQ abdominal pain Sinusitis Flu syndrome Precordial chest pain Atypical chest pain Cold intolerance Former smoker Pulmonary nodule Abnormal lung sounds Fever Bilateral calf pain Nausea Left lower quadrant abdominal pain Dysuria Fatigue Heart palpitations Lower extremity weakness HTN (hypertension) Aortic stenosis Obstipation Dark stools Lower abdominal pain Gastroenteritis Neck pain on right side URI (upper respiratory infection) Back pain Cough Chest pain Rhinitis Elevated BP without diagnosis of hypertension Non-rheumatic aortic stenosis Diverticulitis GERD (gastroesophageal reflux disease) Cat scratch Cat bite Epigastric discomfort Diarrhea Nausea Viral syndrome GERD (gastroesophageal reflux disease) Neuropathy Arthritis GERD (gastroesophageal reflux disease) HTN (hypertension) Irritable bowel Heart murmur Surgical History S/P TAVR (transcatheter aortic valve replacement) Hx of esophagogastroduodenoscopy Hx of colonoscopy History of tonsillectomy History of appendectomy Family History Father No problems noted. Mother No problems noted. Social History Household Members: Children Housing: House Are you a primary grounds caretaker to a significant other at home: No Do you presently have visiting nurse or other home services: No Alcohol intake: former Patient Tobacco Use Status: Former Tobacco user Quit Date: 2013 Tobacco use type: Cigarette e-Cigarette/Vaping Use: Never Used Second Hand Smoke Exposure: No Advance Directives Date on File: 09/21/23 service: No Current occupational status: retired Cognitive needs: No Hearing needs: No Vision needs: Yes (glasses) Questionnaire Thrive Questionnaire Date Thrive assessed: 09/27/23 PAIGE-7 AMB Questionnaire PAIGE-7 Date PAIGE - 7 assessed: 09/27/23 Source: Developed by Drs. Anatoliy Gavin, Peyton Hunt, Austyn Weber and colleagues, with an educational kentrell from [employer]. Review of Systems Const Denies headache(s) Eyes Denies loss of vision ENT Denies vertigo, Denies dizziness, Denies headache(s) and Denies sore throat Card Denies chest pain, Denies leg edema and Denies lightheadedness Resp Denies cough, Denies hemoptysis and Denies wheezing GI Denies abdominal pain, Denies melena, Denies constipation, Denies diarrhea and Denies vomiting Denies urinary frequency, Denies dysuria and Denies urinary urgency Musc Denies arthralgias, Denies joint swelling, Denies numbness and Denies tingling Neuro Denies Abnormal speech present, Denies behavioral changes, Denies vertigo, Denies dizziness, Denies headache(s), Denies loss of vision, Denies memory loss, Denies numbness and Denies tingling Psych Denies anxiety, Denies behavioral changes, Denies depression, Denies memory loss and Denies panic attacks Pradip/Lymph Denies easy bleeding and Denies easy bruising Aller/Immun Denies wheezing Physical exam (Primary Care) Vital Signs: Last Vital Signs Pulse 96 12/27/23 16:22 BP 138/64 12/27/23 16:22 Pulse Ox 95 12/27/23 16:22 Oxygen Delivery Method Room Air 12/27/23 16:22 BMI result Body Mass Index 26.5 Tobacco/Smoking Status: Tobacco use Status Tobacco use date assessed 09/27/23 12/27/23 16:22 Patient Tobacco Use Status Former Tobacco user 12/27/23 16:22 Tobacco use type Cigarette 12/27/23 16:22 e-Cigarette/Vaping Use Never Used 12/27/23 16:22 Thrive Assessment: Date of Thrive Assessment Date Thrive assessed 09/27/23 12/27/23 16:22 Const General: healthy appearing, no acute distress, alert and awake Nutritional Appearance: well nourished Orientation/consciousness: oriented to person, oriented to place and oriented to time HENMT Other: RIGHT EAR: SLIGHT BULGING OF THE TM THOUGH NO ERYTHEMA, NO AIR-FLUID LEVELS NOTED. General nose exam: Normal nasal mucous membranes and turbinates present Eyes Conjunctivae: conjunctivae normal Sclerae: sclerae normal Pupils: Equal, round and reactive pupils present Neck Neck: Yes no lymphadenopathy and Yes no JVD Thyroid: Thyroid normal Carotids: no bruits Resp Effort & Inspection: normal respiratory effort and not tachypneic Auscultation: no crackles, no rales, no rhonchi and no wheezes Cardio Rate: regular rate Rhythm: regular rhythm Heart sounds: no murmurs and normal S1 and S2 GI Palpation (GI): Soft to palpation, nontender, no hepatomegaly and no splenomegaly Auscultation: normal bowel sounds Skin General skin exam: no rashes or lesions noted and dry skin Neuro General: oriented to person, oriented to place and oriented to time Cranial nerves: Yes Equal, round and reactive pupils present Speech: No Abnormal speech present Gait exam (Neuro): Normal gait present Motor exam (neuro): no tremor noted Extrem Right upper extremity: full ROM Left upper extremity: full ROM Right lower extremity: full ROM; no edema Left lower extremity: full ROM; no edema Psych Mental Status: mental status grossly normal Speech and movement: Normal speech and movement present Affect: normal affect Attitude: cooperative Thought process: Normal thought process present Assessment and Plan Assessment & Plan (1) Otitis media: Code(s): H66.90 - Otitis media, unspecified, unspecified ear Qualifiers: Chronicity: chronic Laterality: right Otitis media type: suppurative Suppurative otitis media location: unspecified location Qualified Code(s): H66.3X1 - Other chronic suppurative otitis media, right ear Plan: Will empirically treat with azithromycin for possible inner ear infection. Medications: New azithromycin For 250 mg dose pack: take 500 mg today (day 1), then 250 mg for 4 days (days 2-5) PO 6 tabs 0RF H66.3X1 - Other chronic suppurative otitis media, right ear Discontinued cefuroxime axetil Discontinued Reason: Doctor's Order 250 mg PO BID 7 days 14 tabs 0RF Coding Level of Care Code Est Pt Level 3 (58892) Diagnoses Chronic suppurative otitis media of right ear, unspecified otitis media location H66.3X1 Chronicity: chronic Laterality: right Otitis media type: suppurative Suppurative otitis media location: unspecified location
== END 2023-12-27 16:41 | disposition home or self-care (01) ==
PROVIDERS: PCP Physician Assistant; Visit Provider Physician Assistant
DX: H66.3X1 Other chronic suppurative otitis media, right ear (principal)
CPT/HCPCS: 99213

== ENCOUNTER 2023-12-30 13:47 | Emergency (ER) | payer MEDICARE, OTHER, SELFPAY ==
--- NOTE | 2023-12-30 13:49 | ECG_ITS ---
Test Reason : CP Blood Pressure : / mmHG Vent. Rate : 085 BPM Atrial Rate : 085 BPM P-R Int : 208 ms QRS Dur : 096 ms QT Int : 374 ms P-R-T Axes : 048 -20 033 degrees QTc Int : 445 ms Sinus rhythm with occasional Premature ventricular complexes Otherwise normal ECG When compared with ECG of 23-NOV-2023 05:08, Premature ventricular complexes are now Present Referred By: Xuan Soliman Electronically Signed By:MICHEL CHARLES MD
[2023-12-30 14:05] VITALS: BP 142/81; PULSE 88; RESP 16; TEMP 36.2; O2SAT 93; BMI 26.5
--- NOTE | 2023-12-30 14:07 | ED_ITS ---
HPI - General Adult General Chief complaint: Arrhythmia/Palpitations Stated complaint: chest chest Time Seen by Provider: 12/30/23 16:13 Source: patient Mode of arrival: ambulatory Limitations: no limitations History of Present Illness HPI narrative: Patient is status post TAVR in 08/27 with status post multiple TIAs with short memory loss comes here for episodes of palpitation which is going on for last 3 months had Holter monitor for 1 week last month which did not reveal anything except for PVCs for last 3 days patient noticed more episodes of palpitation lasting only for few minutes without any dizziness feels heart is beating fast no chest pain no shortness of breath per records patient had extended Johana on 11/05/2021 for 3 days no atrial fibrillation noticed had only a few PVCs Related Data Home Medications ?Medication ?Instructions ?Recorded ?Confirmed alprazolam 0.25 mg tablet 0.25 mg PO BID PRN Anxiety 03/28/23 12/27/23 polyethylene glycol 3350 17 17 g PO DAILY PRN Constipation 10/11/23 12/27/23 gram/dose oral powder (Miralax) coenzyme Q10 100 mg capsule 100 mg PO DAILY PRN memory 10/18/23 12/27/23 losartan 25 mg tablet 25 mg PO DAILY 11/02/23 12/27/23 aspirin 81 mg tablet,delayed 81 mg PO QAM 11/23/23 12/27/23 release cholecalciferol (vitamin D3) 50 50 mcg PO DAILY 11/23/23 12/27/23 mcg (2,000 unit) tablet (Vitamin D3) clopidogrel 75 mg tablet 75 mg PO QAM 11/23/23 12/27/23 fluticasone propionate 50 2 spray intranasal DAILY PRN 11/23/23 12/27/23 mcg/actuation nasal Allergic Symptoms spray,suspension folic acid 400 mcg tablet 0.4 mg PO DAILY 11/23/23 12/27/23 Previous Rx's ?Medication ?Instructions ?Recorded citalopram 20 mg tablet 20 mg PO BEDTIME 90 days #90 tabs 10/23/23 docusate sodium 100 mg capsule 100 mg PO BID PRN constipation 30 11/08/23 days #60 caps albuterol sulfate 90 mcg/actuation 1 inh inhalation QID PRN shortness 11/21/23 aerosol inhaler of breath or wheezing 30 days #8.5 grams alprazolam 0.25 mg tablet (Xanax) 0.25 mg PO TID PRN anxiety #20 tabs 11/24/23 ondansetron HCl 4 mg tablet 4 mg PO Q8H PRN Nausea 7 days #21 12/14/23 tabs acetaminophen 325 mg capsule 325 mg PO Q4H PRN pain #30 caps 12/17/23 (Tylenol) ondansetron 4 mg disintegrating 4 mg PO Q6H PRN nausea and 12/17/23 tablet vomiting #14 tabs pantoprazole 40 mg tablet,delayed 40 mg PO QAM #30 tabs 12/17/23 release azithromycin 250 mg tablet See Rx Instructions PO .COMPLEX #6 12/27/23 tabs Allergies Allergy/AdvReac Type Severity Reaction Status Date / Time buspirone Allergy Intermediate Rash Verified 12/30/23 14:07 Sulfa (Sulfonamide Allergy Intermediate RASH Verified 12/30/23 14:07 Antibiotics) garlic [GARLIC] Allergy Unknown PER H&P Verified 12/30/23 14:07 metronidazole [From FLAGYL] Allergy Unknown OCULAR Verified 12/30/23 14:07 MIGRAINES penicillamine Allergy Unknown Unknown Verified 12/30/23 14:07 ciprofloxacin AdvReac Intermediate neuropathic Verified 12/30/23 14:07 pain lisinopril AdvReac Intermediate Cough Verified 12/30/23 14:07 nitrofurantoin AdvReac Mild GI side Verified 12/30/23 14:07 effects cefuroxime Allergy Intermediate wheezy Uncoded 12/30/23 14:07 cough/itch environmental Allergy Unknown Unknown Uncoded 12/30/23 14:07 flagyl Allergy Unknown Unknown Uncoded 12/30/23 14:07 From KEFLEX Allergy Unknown RASH Uncoded 12/30/23 14:07 Metoprolol Tartrate Allergy Unknown Unknown Uncoded 12/30/23 14:07 Sulfacet-R Allergy Unknown Unknown Uncoded 12/30/23 14:07 Review of Systems 2 Review of Systems: Yes all other systems are reviewed and are negative PMFSH Past Medical History Medical History Constipation LLQ abdominal pain Anxiety Breast cancer screening Breast pain, left Elevated vitamin B12 level Neck muscle spasm Strain of neck muscle Low back pain Pubic ramus fracture Sore throat Skin tear of upper arm without complication Head injury, acute, without loss of consciousness Fall Dizziness Medication noncompliance due to cognitive impairment RLQ abdominal pain Sinusitis Flu syndrome Precordial chest pain Atypical chest pain Cold intolerance Former smoker Pulmonary nodule Abnormal lung sounds Fever Bilateral calf pain Nausea Left lower quadrant abdominal pain Dysuria Fatigue Heart palpitations Lower extremity weakness HTN (hypertension) Aortic stenosis Obstipation Dark stools Lower abdominal pain Gastroenteritis Neck pain on right side URI (upper respiratory infection) Back pain Cough Chest pain Rhinitis Elevated BP without diagnosis of hypertension Non-rheumatic aortic stenosis Diverticulitis GERD (gastroesophageal reflux disease) Cat scratch Cat bite Epigastric discomfort Diarrhea Nausea Viral syndrome GERD (gastroesophageal reflux disease) Neuropathy Arthritis GERD (gastroesophageal reflux disease) HTN (hypertension) Irritable bowel Heart murmur Surgical History S/P TAVR (transcatheter aortic valve replacement) Hx of esophagogastroduodenoscopy Hx of colonoscopy History of tonsillectomy History of appendectomy Family History Family History Father No problems noted. Mother No problems noted. Social History Social History Household Members: Children Housing: House Are you a primary lawn caretaker to a significant other at home: No Do you presently have visiting nurse or other home services: No Alcohol intake: former Patient Tobacco Use Status: Former Tobacco user Quit Date: 2013 Tobacco use type: Cigarette Smoked in Last 30 Days: No e-Cigarette/Vaping Use: Never Used Second Hand Smoke Exposure: No Use of substances other than those prescribed or required for medical reasons: No Advance Directives: Yes Advance Directives on File: Yes Advance Directives Date on File: 09/21/23 Do you have a plan to hurt others: No Plan service: No Current occupational status: retired Cognitive needs: No Hearing needs: No Vision needs: Yes (glasses) Physical Exam ED Vital Signs: Vital Signs - 24 hr 12/30/23 14:05 12/30/23 15:01 12/30/23 19:11 Temperature 97.2 F 98 F 98.2 F Pulse Rate 88 94 84 Respiratory Rate 16 19 14 Blood Pressure 142/81 H 151/70 H 118/68 Pulse Oximetry 93 98 94 Oxygen Delivery Method Room Air Room Air Room Air 12/30/23 19:13 12/30/23 19:14 Temperature 97.9 F 97.9 F Pulse Rate 86 86 Respiratory Rate 14 14 Blood Pressure 122/71 122/71 Pulse Oximetry 96 96 Oxygen Delivery Method Room Air Room Air BMI result Body Mass Index 26.5 Appearance: Alert. Oriented X3. No acute distress. Eyes: PERRLA, No Nystagmus ENT: Pharynx normal. Oral Mucosa moist Neck: Normal inspection. Neck supple. CVS: Normal heart rate and rhythm. Pulses normal. Respiratory: No respiratory distress. Equal air entry bilateral, no wheezing/rales/rhonchi Abdomen: Soft and nontender. Bowel sounds are present, no mass palpable, no CVA tenderness Skin: Skin warm and dry. Normal skin color. Normal skin turgor. Extremities: No lower extremity edema. No calf tenderness Neuro: Oriented X 3. No motor deficit. No sensory deficit.No cerebellar signs , cranial nerves II-XII intact Course Course Course Narrative: RME performed by Xuan Soliman PA-C. Patient is an 83 year old assigned female at presenting to the emergency department with palpitations and chest pain. Detailed physical exam and review of systems are deferred to the compliance examiner. Labs ordered. Patient placed back in the waiting room pending room availability and results. 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 12/30/23 14:13 12/30/23 14:13 Labs: Lab Results 12/30/23 12/30/23 Range/Units 14:13 15:05 WBC 3.9 L (4.8-10.8) X10*3/uL RBC 3.43 L (4.20-5.50) X10*6/uL Hgb 10.1 L (12.0-16.0) g/dl Hct 31.1 L (37.0-47.0) % MCV 90.7 (80.0-98.0) fL MCH 29.4 (27.0-33.0) pg MCHC 32.5 (31.0-35.0) g/dl RDW 14.2 (11.0-16.0) % Plt Count 138 L (160-400) X10*3/uL MPV 11.0 (9.4-12.3) fL Immature Gran % (Auto) 0.3 (0.0-0.4) % Neut % (Auto) 76.4 H (45-73) % Lymph % (Auto) 13.3 L (20-40) % Phelps % (Auto) 5.9 (2-11) % Eos % (Auto) 3.8 (0-4) % Baso % (Auto) 0.3 (0-2) % Lymph # (Auto) 0.5 L (1.2-4.9) X10*3/uL Phelps # (Auto) 0.2 (0.1-1.2) X10*3/uL Eos # (Auto) 0.2 (0.0-0.4) X10*3/uL Baso # (Auto) 0.0 (0.0-0.2) X10*3/uL Abs Immat Gran (auto) 0.01 (0.00-0.03) X10*3/uL Absolute Neuts (auto) 3.0 (2.0-8.3) x10*3/uL Absolute Nucleated RBC 0.000 (0.0-0.012) X10*3/uL Nucleated RBC % (auto) 0.0 (0.0-0.2) /100WBC Sodium 139 (135-145) mmol/L Potassium 4.2 (3.3-5.1) mmol/L Chloride 101 (96-108) mmol/L Carbon Dioxide 28 (22-29) mmol/L Anion Gap 14 (12-20) BUN 17 H (9-16) mg/dL Creatinine 0.87 (0.5-1.4) mg/dL Estim Creat Clear Calc 50.5 Estimated GFR > 60 Random Glucose 93 (60-115) mg/dL Calcium 9.8 (8.4-10.2) mg/dL Magnesium 2.0 (1.6-2.6) mg/dL Total Bilirubin 0.6 (0.0-1.0) mg/dL AST 20 (5-31) U/L ALT 13 (0-31) U/L Alkaline Phosphatase 167 H (39-117) U/L Troponin I High Sens 6.7 4.4 (<3.5-17.0) ng/L Total Protein 7.3 (6.5-8.0) g/dL Albumin 4.0 (3.5-5.0) g/dL Influenza Type A (PCR) NEGATIVE (Negative) Influenza Type B (PCR) NEGATIVE (Negative) RSV RNA Qual (PCR) NEGATIVE (Negative) SARS-CoV-2 RNA (RT-PCR) NEGATIVE (Negative) Independent Interpretation I performed an independent interpretation of an: EKG Interpretation: Normal sinus rhythm heart rate 85 beats per minute normal interval occasional PVCs acute ST T wave changes no acute ischemia Discharge Plan Discharge Clinical Impression: Heart palpitations Patient Disposition: Home, Self-Care Instructions: Heart Palpitations (ED) Additional Instructions: Follow-up with your taper machine for further evaluation for palpitations Prescriptions: No Action citalopram 20 mg tablet 20 mg PO BEDTIME 90 Days Qty: 90 1RF docusate sodium 100 mg capsule 100 mg PO BID PRN (Reason: constipation) 30 Days Qty: 60 1RF albuterol sulfate 90 mcg/actuation HFA aerosol inhaler 1 inh inhalation QID PRN (Reason: shortness of breath or wheezing) 30 Days Qty: 8.5 0RF ondansetron HCl 4 mg tablet 4 mg PO Q8H PRN (Reason: Nausea) 7 Days Qty: 21 0RF pantoprazole 40 mg tablet,delayed release (DR/EC) 40 mg PO QAM Qty: 30 1RF fluticasone propionate 50 mcg/actuation spray,suspension 2 spray intranasal DAILY PRN (Reason: Allergic Symptoms) clopidogrel 75 mg tablet 75 mg PO QAM aspirin 81 mg tablet,delayed release (DR/EC) 81 mg PO QAM folic acid 400 mcg Tablet 0.4 mg PO DAILY cholecalciferol (vitamin D3) [Vitamin D3] 50 mcg (2,000 unit) Tablet 50 mcg PO DAILY alprazolam [Xanax] 0.25 mg tablet 0.25 mg PO TID PRN (Reason: anxiety) Qty: 20 0RF ondansetron 4 mg tablet,disintegrating 4 mg PO Q6H PRN (Reason: nausea and vomiting) Qty: 14 0RF acetaminophen [Tylenol] 325 mg capsule 325 mg PO Q4H PRN (Reason: pain) Qty: 30 0RF alprazolam 0.25 mg tablet 0.25 mg PO BID PRN (Reason: Anxiety) polyethylene glycol 3350 [Miralax] 17 gram/dose Powder 17 g PO DAILY PRN (Reason: Constipation) losartan 25 mg tablet 25 mg PO DAILY coenzyme Q10 100 mg capsule 100 mg PO DAILY PRN (Reason: memory) azithromycin 250 mg tablet See Rx Instructions PO .COMPLEX Qty: 6 0RF Rx Instructions: For 250 mg dose pack: take 500 mg today (day 1), then 250 mg for 4 days (days 2-5) PO Interventions: ED Discharge Assessment Last Done: 12/30/23 19:14 Discharge Date/Time: 12/30/23 19:15 Print Language: Thai
[2023-12-30 14:18] LABS: MANUAL DIFF FLAG NO
[2023-12-30 14:19] LABS: Hemoglobin 10.1 g/dl (12.0-16.0); Imm Gran Abs Auto 0.01 X10*3/uL (0.00-0.03); Imm Gran Pct Auto 0.3 % (0.0-0.4); Mean Corpuscular Hemoglobin 29.4 pg (27.0-33.0); PLT CLUMP 1; Red Blood Count 3.43 X10*6/uL (4.20-5.50); Red Cell Distribution Width 14.2 % (11.0-16.0); SCAN SMEAR FLAG 1
[2023-12-30 14:20] LABS: Basophils Percent Auto 0.3 % (0-2); Eosinophils Absolute Auto 0.2 X10*3/uL (0.0-0.4); Eosinophils Percent Auto 3.8 % (0-4); Hematocrit 31.1 % (37.0-47.0); Lymphocytes Absolute Auto 0.5 X10*3/uL (1.2-4.9); Lymphocytes Percent Auto 13.3 % (20-40); Mean Corpuscular HGB Conc 32.5 g/dl (31.0-35.0); Mean Corpuscular Volume 90.7 fL (80.0-98.0); Monocytes Absolute Auto 0.2 X10*3/uL (0.1-1.2); Monocytes Percent Auto 5.9 % (2-11); Neutrophils Percent Auto 76.4 % (45-73)
[2023-12-30 14:24] LABS: Platelet Count 138 X10*3/uL (160-400); White Blood Count 3.9 X10*3/uL (4.8-10.8)
[2023-12-30 14:32] LABS: Alanine Aminotransferase 13 U/L (0-31); Alkaline Phosphatase 167 U/L (39-117); Anion Gap 14 (12-20); Aspartate Amino Transferase 20 U/L (5-31); Bilirubin Total 0.6 mg/dL (0.0-1.0); Blood Urea Nitrogen 17 mg/dL (9-16); Calcium 9.8 mg/dL (8.4-10.2); Carbon Dioxide 28 mmol/L (22-29); Chloride 101 mmol/L (96-108); Creatinine Clr Calc Pharmacy 50.5; Estimated Glomerular Filt Rate > 60; Glucose Random 93 mg/dL (60-115); Potassium 4.2 mmol/L (3.3-5.1); Sodium 139 mmol/L (135-145); Total Protein 7.3 g/dL (6.5-8.0)
[2023-12-30 14:39] LABS: Troponin-I High Sensitivity 6.7 ng/L (<3.5-17.0)
[2023-12-30 15:01] VITALS: BP 151/70; PULSE 94; RESP 19; TEMP 36.6; O2SAT 98
[2023-12-30 15:05] LABS: Influenza A PCR NEGATIVE (Negative); Influenza B PCR NEGATIVE (Negative); Resp Syncy Virus RNA Qual PCR NEGATIVE (Negative); SARS COV2 PCR INHOUSE NEGATIVE (Negative)
[2023-12-30 15:43] LABS: Troponin-I High Sensitivity 4.4 ng/L (<3.5-17.0)
--- NOTE | 2023-12-30 18:50 | PC.NURSE ---
this rn assumed care of pt, pt resting in stretcher, no acute distress noted. pt normal sinus on tele 86-88bpm. call mcmahan within reach.
[2023-12-30 19:11] VITALS: BP 118/68; PULSE 84; RESP 14; TEMP 36.8; O2SAT 94
[2023-12-30 19:13] VITALS: BP 122/71; PULSE 86; RESP 14; TEMP 36.6; O2SAT 96
[2023-12-30 19:14] VITALS: BP 122/71; PULSE 86; RESP 14; TEMP 36.6; O2SAT 96
== END 2023-12-30 19:15 | disposition home or self-care (01) ==
PROVIDERS: Physician Assistant Medical; Emergency Provider Internal Medicine; PCP Physician Assistant
DX: R00.2 Palpitations (principal); I10 Essential (primary) hypertension; Z95.2 Presence of prosthetic heart valve; Z86.73 Personal history of transient ischemic attack (TIA), and cerebral infarction without residual deficits; Z79.82 Long term (current) use of aspirin; Z79.899 Other long term (current) drug therapy; Z03.818 Encounter for observation for suspected exposure to other biological agents ruled out
CPT/HCPCS: 0241U; 36415; 80053; 83735; 84484; 85025; 93005; 99283; 99285

== ENCOUNTER → 2023-12-30 13:49 | Outpatient (BNV) | payer MEDICARE, OTHER, SELFPAY | PROVIDERS: Emergency Provider Internal Medicine; PCP Physician Assistant; Visit Provider Internal Medicine Cardiovascular Disease | DX: R07.9 Chest pain, unspecified (principal); I49.3 Ventricular premature depolarization | CPT/HCPCS: 93010 ==

== ENCOUNTER 2024-01-04 10:35 | Emergency (ER) | payer MEDICARE, OTHER, SELFPAY ==
--- NOTE | ~2024-01-04 | CT_ITS ---
EXAMINATION: CT ABDOMEN AND PELVIS WITH CONTRAST CLINICAL INFORMATION: Left lower quadrant pain. COMPARISON: 11/23/2023 TECHNIQUE: Multidetector volumetric images were obtained from the superior aspect of the liver through the pubic symphysis following administration 85 mL of Omnipaque 350 intravenous contrast. Sagittal and coronal reformatted images were obtained on the technologist's workstation. Oral contrast: No This CT examination was performed using dose optimization techniques as appropriate, variously including the following: *Automated exposure control *Adjustment of mA and/or kV according to patient size (this includes techniques or standardized protocols for targeted exams where dose is matched to indication/reason for exam; i.e. extremities or head) *Use of iterative reconstruction technique DLP: 467 mGy-cm FINDINGS: LUNG BASES: No pleural or pericardial effusion. Status post TAVR. LIVER, GALLBLADDER, AND BILIARY TREE: The liver is normal in size and contour. Scattered hepatic cysts. No biliary ductal dilatation is present. The gallbladder is unremarkable with no evidence of radiopaque gallstones, gallbladder wall thickening, or obvious pericholecystic inflammatory changes. PANCREAS: Unremarkable. SPLEEN: Unremarkable. ADRENAL GLANDS:. No adrenal mass KIDNEYS AND URETERS: The kidneys are symmetric in size and enhancement. 3 mm nonobstructing calculi in the left kidney. No hydronephrosis or perinephric stranding. BLADDER: Underdistended. GASTROINTESTINAL TRACT: Marked retained stool in the colon. Diverticular disease of the sigmoid colon. No small bowel obstruction ABDOMINAL WALL: No significant hernia is appreciated. LYMPH NODES: No bulky lymphadenopathy. VASCULAR: Infrarenal abdominal aorta measures 3.2 x 3.2 cm. Marked atherosclerotic vascular calcification. PELVIC VISCERA: Unremarkable. OSSEOUS STRUCTURES: Diffuse moth-eaten appearance of the bones. Old fractures of the left inferior and superior pubic rami. CT/CT abdomen pelvis w IV con IMPRESSION: 3 mm nonobstructing left renal calculi. No hydronephrosis. Infrarenal abdominal aortic aneurysm measuring 3.2 x 3.2 cm. Recommend follow-up every 3 years. Reference: J Am Billy Radiol 2013; 10 (10): 789-794. Constipation. Diffuse moth-eaten appearance of the bones. This could represent underlying infiltrative marrow disorder.
[2024-01-04 10:42] VITALS: BP 139/88; PULSE 91; RESP 14; TEMP 36.7; O2SAT 96; BMI 26.0
[2024-01-04 11:12] LABS: MANUAL DIFF FLAG NO
[2024-01-04 11:16] LABS: Basophils Percent Auto 0.7 % (0-2); Eosinophils Absolute Auto 0.2 X10*3/uL (0.0-0.4); Eosinophils Percent Auto 4.9 % (0-4); Hematocrit 31.5 % (37.0-47.0); Hemoglobin 10.3 g/dl (12.0-16.0); Imm Gran Abs Auto 0.02 X10*3/uL (0.00-0.03); Imm Gran Pct Auto 0.5 % (0.0-0.4); Lymphocytes Absolute Auto 0.7 X10*3/uL (1.2-4.9); Lymphocytes Percent Auto 15.5 % (20-40); Mean Corpuscular HGB Conc 32.7 g/dl (31.0-35.0); Mean Corpuscular Hemoglobin 30.2 pg (27.0-33.0); Mean Corpuscular Volume 92.4 fL (80.0-98.0); Mean Platelet Volume 11.6 fL (9.4-12.3); Monocytes Absolute Auto 0.3 X10*3/uL (0.1-1.2); Monocytes Percent Auto 6.8 % (2-11); Neutrophils Absolute Auto 3.1 x10*3/uL (2.0-8.3); Neutrophils Percent Auto 71.6 % (45-73); Platelet Count 134 X10*3/uL (160-400); Red Blood Count 3.41 X10*6/uL (4.20-5.50); Red Cell Distribution Width 14.3 % (11.0-16.0); White Blood Count 4.3 X10*3/uL (4.8-10.8)
--- NOTE | 2024-01-04 11:16 | ED.GENADULT ---
HPI - General Adult General Chief complaint: Abdominal Pain Stated complaint: abd pain Time Seen by Provider: 01/04/24 11:15 Source: patient Mode of arrival: ambulatory Limitations: no limitations History of Present Illness HPI narrative: Patient is an 83-year-old female with history of anxiety, depression, memory impairment, hypertension, aortic stenosis, embolic stroke, diverticulitis, GERD, IBS presenting to the emergency department with complaint of left lower abdominal pain since 4:00 a.m. today. Reports that since yesterday her bowel movements have been small and more firm than normal and states pain increases with bowel movements. She also complains of lower back pain. Denies any dysuria, frequency, hematuria. Denies fevers. Reports mild nausea but denies vomiting or diarrhea. Denies any hematochezia or melena. Denies fevers, dizziness or lightheadedness, chest pain, palpitations, dyspnea. History of appendectomy. MD complaint: Left lower quadrant abdominal pain Onset (ago): hour(s) Location: abdomen Radiation: non-radiation Severity: moderate Quality: aching Pain Consistency: colicky Relieving factors: none Exacerbating factors: none Treatments prior to arrival: none Related Data Home Medications ?Medication ?Instructions ?Recorded ?Confirmed alprazolam 0.25 mg tablet 0.25 mg PO BID PRN Anxiety 03/28/23 12/27/23 polyethylene glycol 3350 17 17 g PO DAILY PRN Constipation 10/11/23 12/27/23 gram/dose oral powder (Miralax) coenzyme Q10 100 mg capsule 100 mg PO DAILY PRN memory 10/18/23 12/27/23 losartan 25 mg tablet 25 mg PO DAILY 11/02/23 12/27/23 aspirin 81 mg tablet,delayed 81 mg PO QAM 11/23/23 12/27/23 release cholecalciferol (vitamin D3) 50 50 mcg PO DAILY 11/23/23 12/27/23 mcg (2,000 unit) tablet (Vitamin D3) clopidogrel 75 mg tablet 75 mg PO QAM 11/23/23 12/27/23 fluticasone propionate 50 2 spray intranasal DAILY PRN 11/23/23 12/27/23 mcg/actuation nasal Allergic Symptoms spray,suspension folic acid 400 mcg tablet 0.4 mg PO DAILY 11/23/23 12/27/23 Previous Rx's ?Medication ?Instructions ?Recorded citalopram 20 mg tablet 20 mg PO BEDTIME 90 days #90 tabs 10/23/23 docusate sodium 100 mg capsule 100 mg PO BID PRN constipation 30 11/08/23 days #60 caps albuterol sulfate 90 mcg/actuation 1 inh inhalation QID PRN shortness 11/21/23 aerosol inhaler of breath or wheezing 30 days #8.5 grams alprazolam 0.25 mg tablet (Xanax) 0.25 mg PO TID PRN anxiety #20 tabs 11/24/23 ondansetron HCl 4 mg tablet 4 mg PO Q8H PRN Nausea 7 days #21 12/14/23 tabs acetaminophen 325 mg capsule 325 mg PO Q4H PRN pain #30 caps 12/17/23 (Tylenol) ondansetron 4 mg disintegrating 4 mg PO Q6H PRN nausea and 12/17/23 tablet vomiting #14 tabs pantoprazole 40 mg tablet,delayed 40 mg PO QAM #30 tabs 12/17/23 release azithromycin 250 mg tablet See Rx Instructions PO .COMPLEX #6 12/27/23 tabs polyethylene glycol 3350 17 17 g PO DAILY #119 grams 01/04/24 gram/dose oral powder (ClearLax) sennosides 8.6 mg tablet (Senna 8.6 mg PO BID PRN constipation #14 01/04/24 Laxative) tabs Allergies Allergy/AdvReac Type Severity Reaction Status Date / Time buspirone Allergy Intermediate Rash Verified 01/04/24 10:44 Sulfa (Sulfonamide Allergy Intermediate RASH Verified 01/04/24 10:44 Antibiotics) garlic [GARLIC] Allergy Unknown PER H&P Verified 01/04/24 10:44 metronidazole [From FLAGYL] Allergy Unknown OCULAR Verified 01/04/24 10:44 MIGRAINES penicillamine Allergy Unknown Unknown Verified 01/04/24 10:44 ciprofloxacin AdvReac Intermediate neuropathic Verified 01/04/24 10:44 pain lisinopril AdvReac Intermediate Cough Verified 01/04/24 10:44 nitrofurantoin AdvReac Mild GI side Verified 01/04/24 10:44 effects cefuroxime Allergy Intermediate wheezy Uncoded 12/30/23 14:07 cough/itch environmental Allergy Unknown Unknown Uncoded 12/30/23 14:07 flagyl Allergy Unknown Unknown Uncoded 12/30/23 14:07 From KEFLEX Allergy Unknown RASH Uncoded 12/30/23 14:07 Metoprolol Tartrate Allergy Unknown Unknown Uncoded 12/30/23 14:07 Sulfacet-R Allergy Unknown Unknown Uncoded 12/30/23 14:07 Review of Systems Review of Systems: As per HPI. Yes all other systems are reviewed and are negative Constitutional: Constitutional: Reports as per HPI COUNT INCLUDES [facility] Past Medical History Medical History Constipation LLQ abdominal pain Anxiety Breast cancer screening Breast pain, left Elevated vitamin B12 level Neck muscle spasm Strain of neck muscle Low back pain Pubic ramus fracture Sore throat Skin tear of upper arm without complication Head injury, acute, without loss of consciousness Fall Dizziness Medication noncompliance due to cognitive impairment RLQ abdominal pain Sinusitis Flu syndrome Precordial chest pain Atypical chest pain Cold intolerance Former smoker Pulmonary nodule Abnormal lung sounds Fever Bilateral calf pain Nausea Left lower quadrant abdominal pain Dysuria Fatigue Heart palpitations Lower extremity weakness HTN (hypertension) Aortic stenosis Obstipation Dark stools Lower abdominal pain Gastroenteritis Neck pain on right side URI (upper respiratory infection) Back pain Cough Chest pain Rhinitis Elevated BP without diagnosis of hypertension Non-rheumatic aortic stenosis Diverticulitis GERD (gastroesophageal reflux disease) Cat scratch Cat bite Epigastric discomfort Diarrhea Nausea Viral syndrome GERD (gastroesophageal reflux disease) Neuropathy Arthritis GERD (gastroesophageal reflux disease) HTN (hypertension) Irritable bowel Heart murmur Surgical History S/P TAVR (transcatheter aortic valve replacement) Hx of esophagogastroduodenoscopy Hx of colonoscopy History of tonsillectomy History of appendectomy Family History Family History Father No problems noted. Mother No problems noted. Social History Social History Household Members: Children Housing: House Are you a primary child care supervisor to a significant other at home: No Do you presently have visiting nurse or other home services: No Alcohol intake: former Patient Tobacco Use Status: Former Tobacco user Quit Date: 2013 Tobacco use type: Cigarette e-Cigarette/Vaping Use: Never Used Second Hand Smoke Exposure: No Advance Directives: Yes Advance Directives on File: Yes Advance Directives Date on File: 09/21/23 service: No Current occupational status: retired Cognitive needs: No Hearing needs: No Vision needs: Yes (glasses) Physical Exam ED Vital Signs: Vital Signs - 24 hr 01/04/24 10:42 Temperature 98.1 F Pulse Rate 91 Respiratory Rate 14 Blood Pressure 139/88 Pulse Oximetry 96 Oxygen Delivery Method Room Air BMI result Body Mass Index 26.0 Vital signs have been reviewed and appear to be correct. Blood pressure normal. Heart rate normal. Respiratory rate normal. Temperature normal. Oxygen saturation normal. Const General: cooperative, healthy appearing and no acute distress Orientation/consciousness: oriented to person, oriented to place, oriented to time and patient oriented x3 Limitations: no limitations HENMT Head: Yes normocephalic and Yes atraumatic Ears: external ears normal General nose exam: Normal external nose present Face and sinus: Yes face symmetric Mouth: oropharynx normal and moist mucous membranes Throat: Yes uvula midline Eyes Pupils: Equal, round and reactive pupils present Neck Neck: Yes normal visual inspection and Yes supple Resp Effort & Inspection: normal respiratory effort and able to speak in complete sentences Auscultation: clear to auscultation bilaterally Cardio Rate: regular rate Rhythm: regular rhythm Heart sounds: S1 normal heart sound present and S2 normal heart sound present GI Inspection: Yes normal to inspection Palpation (GI): Soft to palpation, Tenderness to palpation present (GI) in the LLQ and in the RLQ, no guarding, no masses, no pulsatile masses and No Rebound tenderness present Auscultation: normoactive bowel sounds General: Yes no CVA tenderness Back/Spine/Pelvis Back: no CVA tenderness Skin General skin exam: elasticity normal and turgor normal Neuro General: oriented to person, oriented to place, oriented to time, patient oriented x3, moves all extremities, no focal motor deficits and CN's II-XI intact bilaterally Cranial nerves: Yes Equal, round and reactive pupils present Cognition (Neuro): normal cognition Extrem General: Yes full ROM, Yes no pedal edema and Yes no calf tenderness Psych Mental Status: mental status grossly normal Affect: normal affect Thought process: Normal thought process present Medical Decision Making Medical Decision Making MDM Narrative: Patient is an 83-year-old female with history of anxiety, depression, memory impairment, hypertension, aortic stenosis, embolic stroke, diverticulitis, GERD, IBS presenting to the emergency department with complaint of left lower abdominal pain since 4:00 a.m. today. On exam patient is awake, A+Ox3, VS WNL, afebrile, normal neurological exam without focal deficits, physical exam findings as above. Given reported symptoms and physical exam findings, initial differential includes UTI, constipation, diverticulitis. Labs unremarkable. UA is without evidence of infection. CT notable for no evidence of obstructing calculi, known aortic aneurism, constipation. My interpretation is in agreement with the radiologist's interpretation. Results discussed with patient and all questions answered. Patient already on Colace, discussed with patient that it is important to ensure adequate fluid intake for this medication to work. Will also prescribe MiraLax and senna. Discussed with patient eating foods high in fiber. Instructed patient follow-up with primary care provider. Return precautions discussed at bedside. Patient verbalized understanding of and agreement with plan. Differential Diagnosis Differential Diagnoses: The differential diagnosis associated with the presentation includes As per [facility]. Admission/Observation Consideration of admission/observation: Escalation of care including admission/observation considered Patient would have been admitted to the hospital had their work up had any findings where hospital admission was appropriate and their clinical presentation warranted hospital admission. Lab Data [facility] Lab Attestation statement: I reviewed the patient's lab results. As per MDM 01/04/24 11:04 01/04/24 11:04 Labs: Lab Results 01/04/24 01/04/24 Range/Units 11:04 12:00 WBC 4.3 L (4.8-10.8) X10*3/uL RBC 3.41 L (4.20-5.50) X10*6/uL Hgb 10.3 L (12.0-16.0) g/dl Hct 31.5 L (37.0-47.0) % MCV 92.4 (80.0-98.0) fL MCH 30.2 (27.0-33.0) pg MCHC 32.7 (31.0-35.0) g/dl RDW 14.3 (11.0-16.0) % Plt Count 134 L (160-400) X10*3/uL MPV 11.6 (9.4-12.3) fL Immature Gran % (Auto) 0.5 H (0.0-0.4) % Neut % (Auto) 71.6 (45-73) % Lymph % (Auto) 15.5 L (20-40) % [place] % (Auto) 6.8 (2-11) % Eos % (Auto) 4.9 H (0-4) % Baso % (Auto) 0.7 (0-2) % Lymph # (Auto) 0.7 L (1.2-4.9) X10*3/uL [place] # (Auto) 0.3 (0.1-1.2) X10*3/uL Eos # (Auto) 0.2 (0.0-0.4) X10*3/uL Baso # (Auto) 0.0 (0.0-0.2) X10*3/uL Abs Immat Gran (auto) 0.02 (0.00-0.03) X10*3/uL Absolute Neuts (auto) 3.1 (2.0-8.3) x10*3/uL Absolute Nucleated RBC 0.000 (0.0-0.012) X10*3/uL Nucleated RBC % (auto) 0.0 (0.0-0.2) /100WBC Sodium 138 (135-145) mmol/L Potassium 4.4 (3.3-5.1) mmol/L Chloride 101 (96-108) mmol/L Carbon Dioxide 28 (22-29) mmol/L Anion Gap 13 (12-20) BUN 15 (9-16) mg/dL Creatinine 0.90 (0.5-1.4) mg/dL Estim Creat Clear Calc 48.5 Estimated GFR 60 Random Glucose 93 (60-115) mg/dL Calcium 10.3 H (8.4-10.2) mg/dL Total Bilirubin 0.5 (0.0-1.0) mg/dL AST 18 (5-31) U/L ALT 12 (0-31) U/L Alkaline Phosphatase 142 H (39-117) U/L Total Protein 7.3 (6.5-8.0) g/dL Albumin 4.1 (3.5-5.0) g/dL Urine Color Yellow Urine Appearance Clear Urine pH 5.5 (5.0-9.0) Ur Specific [place] 1.015 (1.005-1.025) Urine Protein Negative (Neg-Trace) mg/dL Urine Glucose (UA) Negative (Negative) mg/dL Urine Ketones Negative (Negative) mg/dL Urine Blood Negative (Negative) Urine Nitrite Negative (Negative) Ur Leukocyte Esterase Small (1+) H (Negative) Urine RBC 0-2 (0-2) /HPF Urine WBC 0-5 (0-5) /HPF Ur Squamous Epith Cells 0-2 (0-2) /HPF Urine Bacteria None Seen (None Seen) Hyaline Casts 0-2 (0-2) /LPF Independent Interpretation I performed an independent interpretation of an: CT Scan Interpretation: Constipation noted on CT A/P. Radiology Impression Discussion of test interpretation with radiology: I have reviewed the radiologist's reading. Radiologist Impression: CT/CT abdomen pelvis w IV con IMPRESSION: 3 mm nonobstructing left renal calculi. No hydronephrosis. Infrarenal abdominal aortic aneurysm measuring 3.2 x 3.2 cm. Recommend follow-up every 3 years. Reference: J Am Billy Radiol 2013; 10 (10): 789-794. Constipation. Diffuse moth-eaten appearance of the bones. This could represent underlying infiltrative marrow disorder. External Record Review External record reviewed: Inpatient record, Office record and Outpatient record Prescription Management I considered prescription management with: Other Discharge Plan Discharge Clinical Impression: Constipation Qualifiers: Constipation type: slow transit constipation Qualified Code(s): K59.01 - Slow transit constipation Patient Disposition: Home, Self-Care Instructions: Constipation (DC), High Fiber Diet (ED), Fleet Enema (ED) Additional Instructions: You were evaluated in the emergency department today for abdominal pain. Your CT scan showed evidence of constipation. You are being prescribed medications to help you have more regular bowel movements, please take these as prescribed. You should ensure adequate fluid intake daily. Your labs were reassuring in your urine did not show evidence of infection. Please follow-up with your primary care provider this week. Return to the emergency department if you develop severe pain, fever, persistent vomiting or any other concerning symptoms. Prescriptions: New sennosides [Senna Laxative] 8.6 mg tablet 8.6 mg PO BID PRN (Reason: constipation) Qty: 14 0RF polyethylene glycol 3350 [ClearLax] 17 gram/dose powder 17 g PO DAILY Qty: 119 0RF No Action citalopram 20 mg tablet 20 mg PO BEDTIME 90 Days Qty: 90 1RF docusate sodium 100 mg capsule 100 mg PO BID PRN (Reason: constipation) 30 Days Qty: 60 1RF albuterol sulfate 90 mcg/actuation HFA aerosol inhaler 1 inh inhalation QID PRN (Reason: shortness of breath or wheezing) 30 Days Qty: 8.5 0RF ondansetron HCl 4 mg tablet 4 mg PO Q8H PRN (Reason: Nausea) 7 Days Qty: 21 0RF pantoprazole 40 mg tablet,delayed release (DR/EC) 40 mg PO QAM Qty: 30 1RF fluticasone propionate 50 mcg/actuation spray,suspension 2 spray intranasal DAILY PRN (Reason: Allergic Symptoms) clopidogrel 75 mg tablet 75 mg PO QAM aspirin 81 mg tablet,delayed release (DR/EC) 81 mg PO QAM folic acid 400 mcg Tablet 0.4 mg PO DAILY cholecalciferol (vitamin D3) [Vitamin D3] 50 mcg (2,000 unit) Tablet 50 mcg PO DAILY alprazolam [Xanax] 0.25 mg tablet 0.25 mg PO TID PRN (Reason: anxiety) Qty: 20 0RF ondansetron 4 mg tablet,disintegrating 4 mg PO Q6H PRN (Reason: nausea and vomiting) Qty: 14 0RF acetaminophen [Tylenol] 325 mg capsule 325 mg PO Q4H PRN (Reason: pain) Qty: 30 0RF alprazolam 0.25 mg tablet 0.25 mg PO BID PRN (Reason: Anxiety) polyethylene glycol 3350 [Miralax] 17 gram/dose Powder 17 g PO DAILY PRN (Reason: Constipation) losartan 25 mg tablet 25 mg PO DAILY coenzyme Q10 100 mg capsule 100 mg PO DAILY PRN (Reason: memory) azithromycin 250 mg tablet See Rx Instructions PO .COMPLEX Qty: 6 0RF Rx Instructions: For 250 mg dose pack: take 500 mg today (day 1), then 250 mg for 4 days (days 2-5) PO Print Language: Libyan
[2024-01-04 11:28] LABS: Alanine Aminotransferase 12 U/L (0-31); Albumin Level 4.1 g/dL (3.5-5.0); Alkaline Phosphatase 142 U/L (39-117); Anion Gap 13 (12-20); Aspartate Amino Transferase 18 U/L (5-31); Bilirubin Total 0.5 mg/dL (0.0-1.0); Blood Urea Nitrogen 15 mg/dL (9-16); Calcium 10.3 mg/dL (8.4-10.2); Carbon Dioxide 28 mmol/L (22-29); Chloride 101 mmol/L (96-108); Creatinine Clr Calc Pharmacy 48.5; Estimated Glomerular Filt Rate 60; Glucose Random 93 mg/dL (60-115); Potassium 4.4 mmol/L (3.3-5.1); Sodium 138 mmol/L (135-145); Total Protein 7.3 g/dL (6.5-8.0)
--- NOTE | 2024-01-04 11:49 | PC.NURSE ---
provided with water to give urine sample. states she has not eaten or drank anything today.
[2024-01-04 12:09] LABS: Appearance Urine Clear; Color Urine Yellow; Glucose Urine UA Negative (Negative); Leukocyte Esterase Urine Small (1+) (Negative); Nitrite Urine Negative (Negative); PH 5.5 (5.0-9.0); Specific Gravity - Urine 1.015 (1.005-1.025); UMIC TRIGGER UACC YES; Urine Blood Negative (Negative); Urine Ketones Negative (Negative); Urine Protein Negative (Neg-Trace)
[2024-01-04 12:20] LABS: Bacteria Urine None Seen (None Seen); Hyaline Casts Urine 0-2 /LPF (0-2); RBC Urine 0-2 /HPF (0-2); Squamous Epithelial Cell Urine 0-2 /HPF (0-2); UACC Culture Trigger YES; WBC Urine 0-5 /HPF (0-5)
--- NOTE | 2024-01-04 15:32 | PC.NURSE ---
patient very anxious appearing. reading from list of all her requests at this time, ambulating to the bathroom with steady gait.
--- NOTE | 2024-01-04 15:37 | PC.NURSE ---
stating that she is hungry and thirsty and that she has not had anything to eat or drink since last night. educated on the need to wait for the results of the CT scan.
[2024-01-04 16:36] VITALS: BP 139/88; PULSE 93; RESP 16; TEMP 36.8; O2SAT 98
== END 2024-01-04 16:37 | disposition home or self-care (01) ==
PROVIDERS: Emergency Provider Emergency Medicine; PCP Physician Assistant
DX: K59.01 Slow transit constipation (principal); R10.32 Left lower quadrant pain; Z87.891 Personal history of nicotine dependence; Z79.899 Other long term (current) drug therapy
CPT/HCPCS: 36415; 74177; 80053; 81001; 85025; 87086; 99283; 99284

== ENCOUNTER → 2024-01-09 09:37 | Outpatient (REF) | payer MEDICARE, OTHER, SELFPAY ==
--- NOTE | 2024-01-09 09:43 | HM_ITS ---
* Total monitoring time 3 days. * Underlying rhythm is sinus with an average rate of 88/Min. * Frequent ventricular ectopy with a burden of 1.1%. Rare couplets. * Rare supraventricular ectopy. In some strips, cannot exclude atrial fibrillation. * No significant pauses or AV blocks. * No patient markers or diary events. MTDD
[2024-01-09 10:42] LABS: Appearance Urine Clear; Color Urine Dark Yellow; Glucose Urine UA Negative (Negative); Leukocyte Esterase Urine Small (1+) (Negative); Nitrite Urine Negative (Negative); UMIC TRIGGER UACC YES; Urine Blood Negative (Negative); Urine Ketones Trace mg/dL (Negative); Urine Protein Negative (Neg-Trace)
[2024-01-09 10:59] LABS: Bacteria Urine None Seen (None Seen); RBC Urine 0-2 /HPF (0-2); UACC Culture Trigger YES; WBC Urine 0-5 /HPF (0-5)
== END ==
LOC: HO.CARD 09:37
PROVIDERS: PCP Physician Assistant; Visit Provider Internal Medicine Cardiovascular Disease
DX: R00.2 Palpitations (principal); F41.9 Anxiety disorder, unspecified; Z95.2 Presence of prosthetic heart valve; R30.0 Dysuria; N30.00 Acute cystitis without hematuria
CPT/HCPCS: 81001; 87086; 93242

== ENCOUNTER → 2024-01-09 09:43 | Outpatient (BNV) | payer MEDICARE, OTHER, SELFPAY | PROVIDERS: PCP Physician Assistant; Visit Provider Internal Medicine | DX: I49.3 Ventricular premature depolarization (principal) | CPT/HCPCS: 93244 ==

== ENCOUNTER 2024-01-10 13:11 | Outpatient (RCR) | payer MEDICARE, OTHER, SELFPAY ==
--- NOTE | 2024-01-17 12:36 | MHC.SP.ADU ---
Referring provider: Melissa Salgado D.O. 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 Subacute infarcts in the frontal lobes with involvement of the right precentral gyrus. Primary Speech Language Diagnosis: I69.911 Memory deficit Secondary Speech Language Diagnosis: R47.01 Aphasia History Bella Henley is an 83 year old woman who unfortunately suffered a stroke following a Transcatheter Aortic Valve Replacement (TAVR) procedure electively done at [facility] on 08/29/23. Imaging studies indicated that the CVA involved multiple small infarcts in different regions of the brain, including the cerebellar hemisphere, the right temporal occipital junction and right hippocampus, as well as subacute infarcts in the frontal lobes. Bella was seen at [facility] for a period of rehabilitative care with speech, physical and occupational therapy which she reported lasted two weeks, after which she received therapy services at home for a period of time. However, sometime in October, she unfortunately had a bad fall at home, striking her head, and was again admitted to the hospital and then had a period of rehab at [facility]. Bella reports that she lives in a private home in [place] with her adult son, having lost her three years ago after a long period of decline due to dementia. Bella reported that she cared for him at home for most of his infirmity. She further reported that her son has a history of seizure disorder and TBI, is currently unemployed and is involved in her care. She reported that he prefers that she not drive, and he generally drives her to her appointments, which is what was done today. She however stated that she recently did drive to a very familiar place to shop (e.g. her pharmacy), and feels she is capable of doing this level of driving. She further reported that her son tries to remind her about appointments and other needs, but she can have difficulty remembering even after reminders, and this can be a point of conflict for them. Overall, her primary concern today is the difficulty she is having with her memory, which she feels is affecting her in multiple aspects of her daily life. She also reports at times difficulty expressing herself and difficulty in conversation with others. Her issues make her anxious and self conscious, and as a result has been withdrawing from socializing and participating in community activities (e.g. programs at the senior center). She further reported that she struggles with anxiety and depression, and is aware these may also affect her in her daily communication. Notably, she reported many losses in recent years of friends and family members. She reported no other family members nearby or checking in on her. 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 She reported that she loved her job and still has students who contact her and remember her. Medical History: High Blood Pressure Stroke Other: HLD, severe aortic stenosis, anxiety, depression Medication List: Please see chart Recent Hospitalizations: Yes: [facility] [place] for [place], [facility] [place]. Respiratory Needs: Room Air Patient Orientation: Alert & Oriented x 4 Social History: Employment Status: Retired Highest level of education obtained: Completed Bachelor's Current Living Situation: Lives in a private home in [place] with disabled adult son. Past Speech Language Therapy: Had speech and language therapy at [facility] and at home through [facility] s/p CVA. Other Therapies Seen in Current Calendar Year: Occupational Therapy, Physical Therapy Reported Speech, Language, Cognition difficulties: Memory, Speaking Comments: Bella presents with a moderate impairment of short term memory and processing new information, as well as difficulty organizing her verbal expression (mild expressive aphasia). Quality of Life: Good Patient Stated Goal of Speech-Language Therapy: Provide a period of therapy focused on compensatory strategies and language exercises. Assessment Speech Production: Aphasic: Nonfluent Clinical Impression: Impaired Observations: Bella demonstrates paucity of expression and difficulty with word finding in context of conversational speech consistent with a mild expressive aphasia. Tests of Speech & Lang Adults: BDAE Clinical Impression: Impaired Observations: The Short Form of the [place] Diagnostic Aphasia Evaluation (BDAE) was used to assess Bella's receptive and expressive language function. This is a diagnostic instrument for aphasia which assess conversational and expository speech, auditory comprehension and oral expression. On assessment items administered, Bella demonstrated mild difficulty with organizing and fluently expressing herself at the narrative and conversational level, demonstrating some hesitancies, fragmented observations, and infrequent awkward usage/word retrieval issues. She also demonstrated some very mild issues with processing more complex verbal information. On confrontation word retrieval tasks she demonstrated good accuracy, and demonstrated clear and articulate speech throughout. Tests of Cognition: RBANS Clinical Impression: Impaired Observations: The Repeatable Battery for the Assessment of Neuropsychological Status (RBANS-Update Form A) was used to assess aspects of cognitive memory, language and attention skills. The RBANS is considered a screening battery for adult cognitive function, and is repeatable for the purpose of evaluating any changes in function. Composite domains assessed in this evaluation are: Immediate Memory; Visuospatial/Constructional; Language; Attention; and Delayed Memory. Domain index scores and percentile ranking are the following: Subtest/Domain Immediate Memory: Index Score: 85; Percentile: 16 Visuospatial/Constructional: Index Score: 112; Percentile: 79 Language: Index Score: 86; Percentile: 18 Attention: Index Score: 115; Percentile: 84 Delayed Memory: Index Score: 98; Percentile 45 TOTAL TEST: Index Score: 98; Percentile: 42 Comment: Bella demonstrated very strong focus and attention throughout this assessment, and was consistently able to grasp and work hard at the tasks involved in the assessment. She did express at the onset a degree of anxiety, and was noted at one point to express frustration with herself which then had a negative affect on her performance. Due to this high level of attention and persistence, her overall score on this test fell within the average range of function. This was due to, in part, above average scores in the areas of attention and visuo spatial construction. However, Bella demonstrated below average scores on tasks that assessed auditory short term memory and remote recall of both verbal and visual information. She also received a low average score in language, with this again due to difficulty generating labels in an open set semantic task (name as many fruits as you can...), less so labelling items or drawings. Vys short term memory, e.g. the ability to process, retain and recall briefly presented information, is an area of moderate impairment. This difficulty will likely have an impact on her daily activities, and she may, as a result become confused, neglect details and events, create difficulty following conversations or plot/character lines in media (novels, tv, etc.). Impressions and Recommendations Summary: On today's assessment, Bella presented with a moderate impairment of her short term memory/remote recall skills and a mild impairment of her expressive language skills secondary to paucity of expression and difficulty with word finding in context of conversational speech consistent with a mild expressive aphasia. Bella's memory issues will cause difficulty recalling new information, details, brief data presented auditorily. This may be most evident when verbal directions are given, or phone numbers are recited for recall, or specific dates or other information is briefly given and not written down. However, this level of difficulty with short term memory can additionally affect general comprehension in daily activities such as difficulty recalling details from conversations, repeating conversational information, and misplacing needed items. This also may affect other leisure areas such as understanding an evolving plot while reading or watching complex narratives. Bella's difficulty with delayed recall/memory will also generally affect new learning, making changes in routines, synthesizing new information or data, or acquiring new skills very difficult. It is important for family members and others close to Bella to know that remembering and recalling information and details will be very challenging, and that learning new tasks, however mundane, may take more time, and will need structure and practice in order to complete them. It may be at times hard to anticipate what she might have difficulty with or what she cannot remember. It is recommended that Bella return for a trial period of cognitive therapy to instruct strategies for managing memory and language needs. Impact on Daily Function/Activity Limitations: Daily Activities: Moderate Interpersonal Interactions: Moderate Community: Moderate Prognosis for Improvement: Good Recommendation for Speech Therapy: Outpatient Speech Therapy Frequency/Duration: One, forty five minute session weekly Date Range for Service Requested: 8-12 Weeks Time to Reassess: PRN Pharmacy Messenger Goals: Bella will apply strategies, applications and accommodations to manage tasks that require immediate recall of information and organized verbal expression in four out of five contexts. Short Term Goals: Goal # : Given an organizational/semantic strategy, Bella will produce a short descriptive narrative with 80% accuracy. Goal Status: Goal# : Bella will use a rehearsal strategy to recall a detail or specific information from visual or verbal presented information with 80% accuracy Goal Status: Goal # : Bella will use a visualization strategy to recall a detail or specific information from verbally presented information with 80% accuracy. Goal Status: Goal # : Bella will use an association strategy to retain and retrieve specific information from visually or verbally presented information with 80% accuracy. 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
== END 2024-06-07 14:06 | disposition home or self-care (01) ==
LOC: HO.SH 13:11
PROVIDERS: Visit Provider Student in an Organized Health Care Education/Training Program
DX: I69.911 Memory deficit following unspecified cerebrovascular disease (principal); R47.01 Aphasia
CPT/HCPCS: 96125

== ENCOUNTER 2024-01-12 13:04 | Outpatient (AMB) | payer MEDICARE, OTHER, SELFPAY ==
[2024-01-12 13:23] VITALS: BP 120/72; PULSE 85; BMI 26.4
--- NOTE | 2024-01-12 13:23 | A.OFFVIS_ITS ---
Vital Signs 01/12/24 13:23 Height 5 ft 6 in Weight 163 lb 9.328 oz BMI 26.4 BP 120/72 Blood Pressure Location Lt brachial Position Sitting Pulse 85 Pulse Source Pulse Oximeter Intake Visit Reasons: ED follow up/ [facility] /Chest palps Outboard Technician Required: No Allergies buspirone Allergy (Intermediate, Verified 01/12/24 13:27) Rash Sulfa (Sulfonamide Antibiotics) Allergy (Intermediate, Verified 01/12/24 13:27) RASH garlic [GARLIC] Allergy (Unknown, Verified 01/12/24 13:27) PER H&P metronidazole [From FLAGYL] Allergy (Unknown, Verified 01/12/24 13:27) OCULAR MIGRAINES penicillamine Allergy (Unknown, Verified 01/12/24 13:27) Unknown ciprofloxacin Adverse Reaction (Intermediate, Verified 01/12/24 13:27) neuropathic pain lisinopril Adverse Reaction (Intermediate, Verified 01/12/24 13:27) Cough nitrofurantoin Adverse Reaction (Mild, Verified 01/12/24 13:27) GI side effects cefuroxime Allergy (Intermediate, Uncoded 01/12/24 13:27) wheezy cough/itch environmental Allergy (Unknown, Uncoded 01/12/24 13:27) Unknown flagyl Allergy (Unknown, Uncoded 01/12/24 13:27) Unknown From KEFLEX Allergy (Unknown, Uncoded 01/12/24 13:27) RASH Metoprolol Tartrate Allergy (Unknown, Uncoded 01/12/24 13:27) Unknown Sulfacet-R Allergy (Unknown, Uncoded 01/12/24 13:27) Unknown Medication List - Last Reconciled 01/12/24 by JULES Jones acetaminophen (Tylenol) 325 mg PO Q4H PRN albuterol sulfate 90 mcg/actuation 1 inh inhalation QID PRN 30 days alprazolam (Xanax) 0.25 mg PO TID PRN aspirin 81 mg PO QAM cholecalciferol (vitamin D3) (Vitamin D3) 50 mcg PO DAILY citalopram 20 mg PO BEDTIME 90 days clopidogrel 75 mg PO QAM coenzyme Q10 100 mg PO DAILY PRN docusate sodium 100 mg PO BID PRN 30 days fluticasone propionate 50 mcg/actuation 2 sprays intranasal DAILY PRN folic acid 0.4 mg PO DAILY losartan 25 mg PO DAILY ondansetron 4 mg PO Q6H PRN pantoprazole 40 mg PO QAM polyethylene glycol 3350 (Miralax) 17 grams PO DAILY PRN polyethylene glycol 3350 (ClearLax) 17 grams PO DAILY sennosides (Senna Laxative) 8.6 mg PO BID PRN HPI HPI ED follow up/ [facility] /Chest palps: Details: Bella is an 83-year-old female with past medical history of hypertension, severe aortic stenosis status post TAVR complicated by CVA who presents for follow-up. Today she reports that she has been doing well since her last visit in October. She notices some short-term memory loss. She has no speech disturbances or mobility issues following her CVA. She does ambulate with a walker for steadiness. She has not had any chest discomfort at rest or with activity. She has been feeling some brief heart palpitations. No lightheadedness, presyncope, syncope, falls. No shortness of breath, PND, orthopnea or edema. She has been taking her meds as directed. She is currently wearing a Holter monitor. [facility] Medical History (Updated 01/12/24 @ 16:10 by Sydni Jacob, [employer]) Heart palpitations Constipation LLQ abdominal pain Anxiety Breast cancer screening Breast pain, left Elevated vitamin B12 level Neck muscle spasm Strain of neck muscle Low back pain Pubic ramus fracture Sore throat Skin tear of upper arm without complication Head injury, acute, without loss of consciousness Fall Dizziness Medication noncompliance due to cognitive impairment RLQ abdominal pain Sinusitis Flu syndrome Precordial chest pain Atypical chest pain Cold intolerance Former smoker Pulmonary nodule Abnormal lung sounds Fever Bilateral calf pain Nausea Left lower quadrant abdominal pain Dysuria Fatigue Lower extremity weakness HTN (hypertension) Aortic stenosis Obstipation Dark stools Lower abdominal pain Gastroenteritis Neck pain on right side URI (upper respiratory infection) Back pain Cough Chest pain Rhinitis Elevated BP without diagnosis of hypertension Non-rheumatic aortic stenosis Diverticulitis GERD (gastroesophageal reflux disease) Cat scratch Cat bite Epigastric discomfort Diarrhea Nausea Viral syndrome GERD (gastroesophageal reflux disease) Neuropathy Arthritis GERD (gastroesophageal reflux disease) HTN (hypertension) Irritable bowel Heart murmur Surgical History (Updated 01/12/24 @ 16:10 by Sydni Jacob, [employer]) S/P TAVR (transcatheter aortic valve replacement) Hx of esophagogastroduodenoscopy Hx of colonoscopy History of tonsillectomy History of appendectomy Family History Father No problems noted. Mother No problems noted. Social History Household Members: Children Housing: House Are you a primary personal care worker to a significant other at home: No Do you presently have visiting nurse or other home services: No Alcohol intake: former Patient Tobacco Use Status: Former Tobacco user Quit Date: 2013 Tobacco use type: Cigarette e-Cigarette/Vaping Use: Never Used Second Hand Smoke Exposure: No Advance Directives Date on File: 09/21/23 service: No Current occupational status: retired Cognitive needs: No Hearing needs: No Vision needs: Yes (glasses) Review of Systems Const Details: issues with short term memory loss All systems reviewed & are unremarkable except as noted in HPI and below ENT Denies dizziness Card Denies chest pain, Denies chest pain at rest, Denies chest pain with activity, Reports rapid heart rate, Denies pedal edema, Denies edema, Denies leg edema, Denies lightheadedness, Denies palpitations, Denies dyspnea, Denies dyspnea on exertion and Denies orthopnea Resp Denies cough, Denies dyspnea and Denies dyspnea on exertion GI Denies hematochezia and Denies change in stool character Musc Denies abnormal gait, Denies limited range of motion, Denies muscle cramps, Denies muscle weakness, Denies numbness, Denies radiating pain into limb, Denies stiffness and Denies tingling Neuro Denies abnormal gait, Denies dizziness, Denies numbness and Denies tingling Endo Denies palpitations Physical Exam Vital Signs: Last Vital Signs Pulse 85 01/12/24 13:23 BP 120/72 01/12/24 13:23 BMI result Body Mass Index 26.4 Const Other: ambulates with walker General: cooperative, healthy appearing, comfortable and no acute distress Orientation/consciousness: patient oriented x3 Neck Neck: Yes normal visual inspection and Yes no JVD Resp Effort & Inspection: normal respiratory effort Auscultation: clear to auscultation bilaterally, no rales, no rhonchi and no wheezes Cardio Jugular venous distension: no JVD Rate: regular rate Rhythm: regular rhythm Heart sounds: S1 normal heart sound present, S2 normal heart sound present, no murmurs and no rubs Neuro General: patient oriented x3 Extrem General: Yes normal to inspection and No no pedal edema Psych Appearance: grossly normal Mental Status: mental status grossly normal Speech and movement: Normal speech and movement present Assessment & Plan Assessment & Plan (1) S/P TAVR (transcatheter aortic valve replacement): Code(s): Z95.2 - Presence of prosthetic heart valve Category: Surgical Plan: History of severe aortic stenosis. She underwent TAVR procedure 08/29/[address] Leggett. She did have acute CVA postop with MRI showing multiple areas of acute infarcts. Initial symptoms aphasia, left-sided weakness. She has undergone rehab and at this time she has only residual short-term memory loss. She denies any weakness in her extremities. She does ambulates with a walker. Her echocardiogram done 09/25/2023 showed EF 68%, bioprosthetic AVR functioning normally. She tells me she has had some recent heart palpitations. She is currently wearing a Holter monitor and will return it to cardiology after this visit. She is on aspirin and Plavix. Blood pressure is well controlled. Continue losartan. Cardiology office visit in 4 months for reassessment, sooner if needed. (2) Severe aortic stenosis: Code(s): I35.0 - Nonrheumatic aortic (valve) stenosis Category: Medical Plan: As above (3) Embolic stroke: Code(s): I63.9 - Cerebral infarction, unspecified Category: Medical Plan: Postop, as above (4) Heart palpitations: Code(s): R00.2 - Palpitations Category: Medical Plan: As above Coding Level of Care Code Est Pt Level 4 (66384) Diagnoses S/P TAVR (transcatheter aortic valve replacement) Z95.2 Severe aortic stenosis I35.0 Embolic stroke I63.9 Heart palpitations R00.2 Time Spent (min) 30
== END 2024-01-12 14:05 | disposition home or self-care (01) ==
PROVIDERS: PCP Physician Assistant; Visit Provider Nurse Practitioner Family
DX: Z95.2 Presence of prosthetic heart valve (principal); I35.0 Nonrheumatic aortic (valve) stenosis; I63.9 Cerebral infarction, unspecified; R00.2 Palpitations
CPT/HCPCS: 99214

== ENCOUNTER → 2024-01-12 13:04 | Outpatient (BNVA) | payer MEDICARE, OTHER, SELFPAY | PROVIDERS: PCP Physician Assistant; Visit Provider Nurse Practitioner Family | DX: I35.0 Nonrheumatic aortic (valve) stenosis (principal); R00.2 Palpitations; Z95.2 Presence of prosthetic heart valve; Z86.73 Personal history of transient ischemic attack (TIA), and cerebral infarction without residual deficits; Z79.02 Long term (current) use of antithrombotics/antiplatelets; Z79.82 Long term (current) use of aspirin; Z79.899 Other long term (current) drug therapy | CPT/HCPCS: 99212 ==

== ENCOUNTER 2024-01-13 14:35 | Emergency (ER) | payer MEDICARE, OTHER, SELFPAY ==
[2024-01-13 15:05] VITALS: BP 137/81; PULSE 89; RESP 18; TEMP 37.1; O2SAT 95; BMI 26.3
--- NOTE | 2024-01-13 15:07 | ED.FEMALEGU ---
HPI - Female Genitourinary General Chief complaint: Urogenital-Female Stated complaint: freq urination Time Seen by Provider: 01/13/24 20:08 Source: patient Mode of arrival: ambulatory Limitations: no limitations History of Present Illness HPI Narrative: 83-year-old female who is well known to our ED staff for frequent ED visits presented today with suprapubic pain that is worse after urination, patient also complaining of painful urination with increase your urination frequency, no fever, no chills, no urethral discharge, patient currently sexually not active. No nausea, no vomiting, otherwise no abdominal pain. Related Data Home Medications ?Medication ?Instructions ?Recorded ?Confirmed polyethylene glycol 3350 17 17 g PO DAILY PRN Constipation 10/11/23 01/12/24 gram/dose oral powder (Miralax) coenzyme Q10 100 mg capsule 100 mg PO DAILY PRN memory 10/18/23 01/12/24 losartan 25 mg tablet 25 mg PO DAILY 11/02/23 01/12/24 aspirin 81 mg tablet,delayed 81 mg PO QAM 11/23/23 01/12/24 release cholecalciferol (vitamin D3) 50 50 mcg PO DAILY 11/23/23 01/12/24 mcg (2,000 unit) tablet (Vitamin D3) clopidogrel 75 mg tablet 75 mg PO QAM 11/23/23 01/12/24 fluticasone propionate 50 2 spray intranasal DAILY PRN 11/23/23 01/12/24 mcg/actuation nasal Allergic Symptoms spray,suspension folic acid 400 mcg tablet 0.4 mg PO DAILY 11/23/23 01/12/24 Previous Rx's ?Medication ?Instructions ?Recorded citalopram 20 mg tablet 20 mg PO BEDTIME 90 days #90 tabs 10/23/23 docusate sodium 100 mg capsule 100 mg PO BID PRN constipation 30 11/08/23 days #60 caps alprazolam 0.25 mg tablet (Xanax) 0.25 mg PO TID PRN anxiety #20 tabs 11/24/23 acetaminophen 325 mg capsule 325 mg PO Q4H PRN pain #30 caps 12/17/23 (Tylenol) ondansetron 4 mg disintegrating 4 mg PO Q6H PRN nausea and 12/17/23 tablet vomiting #14 tabs pantoprazole 40 mg tablet,delayed 40 mg PO QAM #30 tabs 12/17/23 release polyethylene glycol 3350 17 17 g PO DAILY #119 grams 01/04/24 gram/dose oral powder (ClearLax) sennosides 8.6 mg tablet (Senna 8.6 mg PO BID PRN constipation #14 01/04/24 Laxative) tabs albuterol sulfate 90 mcg/actuation 1 inh inhalation QID PRN shortness 01/13/24 aerosol inhaler of breath or wheezing 30 days #8.5 grams nitrofurantoin 100 mg PO Q12H 7 days #14 caps 01/13/24 monohydrate/macrocrystals 100 mg capsule (Macrobid) phenazopyridine 100 mg tablet 100 mg PO TID PRN pain 6 doses #6 01/13/24 (Pyridium) tabs Allergies Allergy/AdvReac Type Severity Reaction Status Date / Time buspirone Allergy Intermediate Rash Verified 01/13/24 15:06 Sulfa (Sulfonamide Allergy Intermediate RASH Verified 01/13/24 15:06 Antibiotics) cefuroxime Allergy Unknown Unknown Verified 01/13/24 15:06 garlic [GARLIC] Allergy Unknown PER H&P Verified 01/13/24 15:06 metronidazole [From FLAGYL] Allergy Unknown OCULAR Verified 01/13/24 15:06 MIGRAINES penicillamine Allergy Unknown Unknown Verified 01/13/24 15:06 ciprofloxacin AdvReac Intermediate neuropathic Verified 01/13/24 15:06 pain lisinopril AdvReac Intermediate Cough Verified 01/13/24 15:06 nitrofurantoin AdvReac Mild GI side Verified 01/13/24 15:06 effects cefuroxime Allergy Intermediate wheezy Uncoded 01/12/24 13:27 cough/itch flagyl Allergy Unknown Unknown Uncoded 01/12/24 13:27 From KEFLEX Allergy Unknown RASH Uncoded 01/12/24 13:27 Metoprolol Tartrate Allergy Unknown Unknown Uncoded 01/12/24 13:27 Sulfacet-R Allergy Unknown Unknown Uncoded 01/12/24 13:27 Review of Systems Review of Systems: All other systems are reviewed and are negative Constitutional: Reports as per HPI and Reports no additional constitutional complaints Eyes: Reports as per HPI and Reports no additional eye complaints Reports system reviewed and no additional complaints, except as documented Cardiovascular: Reports as per HPI and Reports no additional cardiovascular complaints Respiratory: Reports as per HPI and Reports no additional respiratory complaints Gastrointestinal: Reports as per HPI and Reports no additional gastrointestinal complaints Genitourinary: Reports no additional female genitourinary complaints Musculoskeletal: Reports no additional musculoskeletal complaints Skin/Breast: Reports system reviewed and no additional complaints, except as docu Psychiatric: Reports no additional psychiatric complaints Endocrine: Reports no additional endocrine complaints Hematologic/Lymphatic: Reports no additional hematologic/lymphatic complaints Allergic/Immunologic: Reports no additional allergic/immunologic complaints Reports system reviewed and no additional complaints, except as documented and Reports Abnormal speech present [facility] Past Medical History Medical History Heart palpitations Constipation LLQ abdominal pain Anxiety Breast cancer screening Breast pain, left Elevated vitamin B12 level Neck muscle spasm Strain of neck muscle Low back pain Pubic ramus fracture Sore throat Skin tear of upper arm without complication Head injury, acute, without loss of consciousness Fall Dizziness Medication noncompliance due to cognitive impairment RLQ abdominal pain Sinusitis Flu syndrome Precordial chest pain Atypical chest pain Cold intolerance Former smoker Pulmonary nodule Abnormal lung sounds Fever Bilateral calf pain Nausea Left lower quadrant abdominal pain Dysuria Fatigue Lower extremity weakness HTN (hypertension) Aortic stenosis Obstipation Dark stools Lower abdominal pain Gastroenteritis Neck pain on right side URI (upper respiratory infection) Back pain Cough Chest pain Rhinitis Elevated BP without diagnosis of hypertension Non-rheumatic aortic stenosis Diverticulitis GERD (gastroesophageal reflux disease) Cat scratch Cat bite Epigastric discomfort Diarrhea Nausea Viral syndrome GERD (gastroesophageal reflux disease) Neuropathy Arthritis GERD (gastroesophageal reflux disease) HTN (hypertension) Irritable bowel Heart murmur Surgical History S/P TAVR (transcatheter aortic valve replacement) Hx of esophagogastroduodenoscopy Hx of colonoscopy History of tonsillectomy History of appendectomy Family History Family History Father No problems noted. Mother No problems noted. Social History Social History Household Members: Children Housing: House Are you a primary intensive care anaesthetist to a significant other at home: No Do you presently have visiting nurse or other home services: No Alcohol intake: former Patient Tobacco Use Status: Former Tobacco user Quit Date: 2013 Tobacco use type: Cigarette Smoked in Last 30 Days: No e-Cigarette/Vaping Use: Never Used Second Hand Smoke Exposure: No Use of substances other than those prescribed or required for medical reasons: No Advance Directives: Yes Advance Directives on File: Yes Advance Directives Date on File: 09/21/23 Do you have a plan to hurt others: No Plan service: No Current occupational status: retired Cognitive needs: No Hearing needs: No Vision needs: Yes (glasses) Physical Exam Vital Signs: Vital Signs: Last Vital Signs Temp 97.4 F 01/13/24 21:43 Pulse 94 01/13/24 21:43 Resp 16 01/13/24 21:43 BP 167/97 H 01/13/24 21:43 Pulse Ox 97 01/13/24 21:43 O2 Del Method Room Air 01/13/24 21:43 BMI result Body Mass Index 26.3 Vital signs have been reviewed and appear to be correct. Blood pressure elevated. Heart rate normal. Respiratory rate normal. Temperature normal. Oxygen saturation normal. Appearance: Alert. Oriented X3. No acute distress. Head: Normal external exam. Normocephalic. Atraumatic. No Calvert signs noted. No raccoon eyes noted Eyes: PERRLA. EOMI. Conjunctiva and sclera normal. Eyelids normal. ENT: TM's Normal. Pharynx normal. Uvula midline. Moist mucous membranes. No trismus noted. No drooling noted. No muffled voice noted. Neck: Normal inspection. Neck supple. FROM. No adenopathy. Thyroid Normal. No meningeal signs. No neck mass noted. CVS: Normal heart rate and rhythm. Heart sound normal. No murmurs noted. Pulses normal throughout. Respiratory: No respiratory distress. Painless inspiration. Breath sounds normal. No wheezes/rales/rhonchi noted. Chest nontender. No accessory muscle usage noted or decreased air movement noted. Abdomen: Soft and nontender. Bowel sounds normal in all 4 quadrants. No distention noted. No organomegaly noted. No visible injury noted. Back: No CVA tenderness. Full range of motion noted. Skin: Skin warm and dry. Normal skin color. Normal skin turgor. No rashes/lesions/lacerations noted. Extremities: No lower extremity edema. Extremities exhibit normal range of motion. Extremities nontender. Neuro: Oriented X 3. Cranial nerve exam: II-XII are grossly intact No motor deficit. No sensory deficit. Reflexes normal. Course Course Course Narrative: This is a rapid medical exam completed by Nicolasa HAIR: Additional HPI, ROS, PE not included below will be deferred to primary provider. 3 day history of dysuria and urinary frequency. Denies fevers, chills, or noticeable hematuria. PCP recommended evaluation Plan: UA Reevaluation(s) Reevaluation #1: 83-year-old female came in for evaluation of dysuria and frequency urination with suprapubic pain, UA is revealing mild UTI, no sepsis, no severe sepsis or septic shock patient tolerated Macrobid in the emergency department, will prescribe 7 days' course of Macrobid with Pyridium to help with the patient's symptoms patient also was instructed to drink plenty of fluids. Time: 22:07 Medications Administered Discontinued Medications Generic Name Dose Route Start Last Admin Trade Name Freq PRN Reason Stop Dose Admin Nitrofurantoin Macrocrystals 100 mg 01/13/24 20:37 01/13/24 20:46 Nitrofurantoin Monohyd/M-Cryst 100 Mg Capsule PO 01/13/24 20:38 100 mg ONCE ONE Administration Phenazopyridine HCl 200 mg 01/13/24 20:36 01/13/24 20:46 Phenazopyridine Hcl 200 Mg Tablet PO 01/13/24 20:37 200 mg ONCE ONE Administration Medical Decision Making Differential Diagnosis Differential Diagnoses: The differential diagnosis associated with the presentation includes (UTI, sepsis, severe sepsis, severe anemia, electrolyte derangement.) Admission/Observation Consideration of admission/observation: Escalation of care including admission/observation considered Lab Data [facility] Lab Attestation statement: I reviewed the patient's lab results. 01/13/24 20:35 01/13/24 20:35 Labs: Lab Results 01/13/24 01/13/24 Range/Units 20:13 20:35 WBC 3.0 L (4.8-10.8) X10*3/uL RBC 3.40 L (4.20-5.50) X10*6/uL Hgb 10.2 L (12.0-16.0) g/dl Hct 30.7 L (37.0-47.0) % MCV 90.3 (80.0-98.0) fL MCH 30.0 (27.0-33.0) pg MCHC 33.2 (31.0-35.0) g/dl RDW 14.2 (11.0-16.0) % Plt Count 135 L (160-400) X10*3/uL MPV 11.1 (9.4-12.3) fL Immature Gran % (Auto) 0.3 (0.0-0.4) % Neut % (Auto) 67.1 (45-73) % Lymph % (Auto) 19.5 L (20-40) % Pratt % (Auto) 8.7 (2-11) % Eos % (Auto) 3.7 (0-4) % Baso % (Auto) 0.7 (0-2) % Lymph # (Auto) 0.6 L (1.2-4.9) X10*3/uL Pratt # (Auto) 0.3 (0.1-1.2) X10*3/uL Eos # (Auto) 0.1 (0.0-0.4) X10*3/uL Baso # (Auto) 0.0 (0.0-0.2) X10*3/uL Abs Immat Gran (auto) 0.01 (0.00-0.03) X10*3/uL Absolute Neuts (auto) 2.0 (2.0-8.3) x10*3/uL Absolute Nucleated RBC 0.000 (0.0-0.012) X10*3/uL Nucleated RBC % (auto) 0.0 (0.0-0.2) /100WBC Sodium 138 (135-145) mmol/L Potassium 3.9 (3.3-5.1) mmol/L Chloride 102 (96-108) mmol/L Carbon Dioxide 26 (22-29) mmol/L Anion Gap 14 (12-20) BUN 16 (9-16) mg/dL Creatinine 0.80 (0.5-1.4) mg/dL Estim Creat Clear Calc 54.7 Estimated GFR > 60 Random Glucose 92 (60-115) mg/dL Calcium 9.9 (8.4-10.2) mg/dL Total Bilirubin 0.5 (0.0-1.0) mg/dL Direct Bilirubin 0.2 (0.0-0.5) mg/dL AST 17 (5-31) U/L ALT 9 (0-31) U/L Alkaline Phosphatase 131 H (39-117) U/L Total Protein 6.9 (6.5-8.0) g/dL Albumin 3.9 (3.5-5.0) g/dL Lipase 16 (8-78) U/L Urine Color Yellow Urine Appearance Clear Urine pH 6.0 (5.0-9.0) Ur Specific [place] 1.020 (1.005-1.025) Urine Protein Negative (Neg-Trace) mg/dL Urine Glucose (UA) Negative (Negative) mg/dL Urine Ketones Negative (Negative) mg/dL Urine Blood Negative (Negative) Urine Nitrite Negative (Negative) Ur Leukocyte Esterase Moderate (2+) H (Negative) Urine RBC 3-5 H (0-2) /HPF Urine WBC 6-10 H (0-5) /HPF Ur Squamous Epith Cells 0-2 (0-2) /HPF Urine Bacteria None Seen (None Seen) Hyaline Casts 0-2 (0-2) /LPF Discharge Plan Discharge Clinical Impression: Dysuria, Acute UTI Patient Disposition: Home, Self-Care Instructions: Urinary Tract Infection in Women (ED) Prescriptions: New nitrofurantoin monohyd/m-cryst [Macrobid] 100 mg capsule 100 mg PO Q12H 7 Days Qty: 14 0RF Rx Instructions: must administer with a meal/food phenazopyridine [Pyridium] 100 mg tablet 100 mg PO TID PRN (Reason: pain) Qty: 6 0RF No Action citalopram 20 mg tablet 20 mg PO BEDTIME 90 Days Qty: 90 1RF docusate sodium 100 mg capsule 100 mg PO BID PRN (Reason: constipation) 30 Days Qty: 60 1RF pantoprazole 40 mg tablet,delayed release (DR/EC) 40 mg PO QAM Qty: 30 1RF albuterol sulfate 90 mcg/actuation HFA aerosol inhaler 1 inh inhalation QID PRN (Reason: shortness of breath or wheezing) 30 Days Qty: 8.5 0RF fluticasone propionate 50 mcg/actuation spray,suspension 2 spray intranasal DAILY PRN (Reason: Allergic Symptoms) clopidogrel 75 mg tablet 75 mg PO QAM aspirin 81 mg tablet,delayed release (DR/EC) 81 mg PO QAM folic acid 400 mcg Tablet 0.4 mg PO DAILY cholecalciferol (vitamin D3) [Vitamin D3] 50 mcg (2,000 unit) Tablet 50 mcg PO DAILY alprazolam [Xanax] 0.25 mg tablet 0.25 mg PO TID PRN (Reason: anxiety) Qty: 20 0RF ondansetron 4 mg tablet,disintegrating 4 mg PO Q6H PRN (Reason: nausea and vomiting) Qty: 14 0RF acetaminophen [Tylenol] 325 mg capsule 325 mg PO Q4H PRN (Reason: pain) Qty: 30 0RF polyethylene glycol 3350 [Miralax] 17 gram/dose Powder 17 g PO DAILY PRN (Reason: Constipation) sennosides [Senna Laxative] 8.6 mg tablet 8.6 mg PO BID PRN (Reason: constipation) Qty: 14 0RF polyethylene glycol 3350 [ClearLax] 17 gram/dose powder 17 g PO DAILY Qty: 119 0RF losartan 25 mg tablet 25 mg PO DAILY coenzyme Q10 100 mg capsule 100 mg PO DAILY PRN (Reason: memory) Referrals: Nick Gomez PA-C [Primary Care Provider] - Print Language: Ugandan
[2024-01-13 19:59] VITALS: BP 148/75; PULSE 94; RESP 16; TEMP 37.1; O2SAT 97
--- NOTE | 2024-01-13 20:02 | MHC.EDTECH ---
THIS PCT JUST ASSUMED CARE OF PATIENT ,VITALS TAKEN ,PATIENT NOT ABLE TO GIVE URINE SAMPLE AT THIS TIME .
--- NOTE | 2024-01-13 20:14 | MHC.EDTECH ---
PATIENT URINE SAMPLE COLLECTED AND SENT TO LAB .
[2024-01-13 20:20] LABS: Appearance Urine Clear; Color Urine Yellow; Glucose Urine UA Negative (Negative); Leukocyte Esterase Urine Moderate (2+) (Negative); Nitrite Urine Negative (Negative); UMIC TRIGGER UACC YES; Urine Blood Negative (Negative); Urine Ketones Negative (Negative); Urine Protein Negative (Neg-Trace)
--- NOTE | 2024-01-13 20:32 | ED.FEMALEGU ---
HPI - Female Genitourinary General Chief complaint: Urogenital-Female Stated complaint: freq urination Time Seen by Provider: 01/13/24 20:08 Source: patient Mode of arrival: ambulatory Limitations: no limitations History of Present Illness HPI Narrative: 83-year-old female Related Data Home Medications ?Medication ?Instructions ?Recorded ?Confirmed polyethylene glycol 3350 17 17 g PO DAILY PRN Constipation 10/11/23 01/12/24 gram/dose oral powder (Miralax) coenzyme Q10 100 mg capsule 100 mg PO DAILY PRN memory 10/18/23 01/12/24 losartan 25 mg tablet 25 mg PO DAILY 11/02/23 01/12/24 aspirin 81 mg tablet,delayed 81 mg PO QAM 11/23/23 01/12/24 release cholecalciferol (vitamin D3) 50 50 mcg PO DAILY 11/23/23 01/12/24 mcg (2,000 unit) tablet (Vitamin D3) clopidogrel 75 mg tablet 75 mg PO QAM 11/23/23 01/12/24 fluticasone propionate 50 2 spray intranasal DAILY PRN 11/23/23 01/12/24 mcg/actuation nasal Allergic Symptoms spray,suspension folic acid 400 mcg tablet 0.4 mg PO DAILY 11/23/23 01/12/24 Previous Rx's ?Medication ?Instructions ?Recorded citalopram 20 mg tablet 20 mg PO BEDTIME 90 days #90 tabs 10/23/23 docusate sodium 100 mg capsule 100 mg PO BID PRN constipation 30 11/08/23 days #60 caps alprazolam 0.25 mg tablet (Xanax) 0.25 mg PO TID PRN anxiety #20 tabs 11/24/23 acetaminophen 325 mg capsule 325 mg PO Q4H PRN pain #30 caps 12/17/23 (Tylenol) ondansetron 4 mg disintegrating 4 mg PO Q6H PRN nausea and 12/17/23 tablet vomiting #14 tabs pantoprazole 40 mg tablet,delayed 40 mg PO QAM #30 tabs 12/17/23 release polyethylene glycol 3350 17 17 g PO DAILY #119 grams 01/04/24 gram/dose oral powder (ClearLax) sennosides 8.6 mg tablet (Senna 8.6 mg PO BID PRN constipation #14 01/04/24 Laxative) tabs albuterol sulfate 90 mcg/actuation 1 inh inhalation QID PRN shortness 01/13/24 aerosol inhaler of breath or wheezing 30 days #8.5 grams Allergies Allergy/AdvReac Type Severity Reaction Status Date / Time buspirone Allergy Intermediate Rash Verified 01/13/24 15:06 Sulfa (Sulfonamide Allergy Intermediate RASH Verified 01/13/24 15:06 Antibiotics) cefuroxime Allergy Unknown Unknown Verified 01/13/24 15:06 garlic [GARLIC] Allergy Unknown PER H&P Verified 01/13/24 15:06 metronidazole [From FLAGYL] Allergy Unknown OCULAR Verified 01/13/24 15:06 MIGRAINES penicillamine Allergy Unknown Unknown Verified 01/13/24 15:06 ciprofloxacin AdvReac Intermediate neuropathic Verified 01/13/24 15:06 pain lisinopril AdvReac Intermediate Cough Verified 01/13/24 15:06 nitrofurantoin AdvReac Mild GI side Verified 01/13/24 15:06 effects cefuroxime Allergy Intermediate wheezy Uncoded 01/12/24 13:27 cough/itch flagyl Allergy Unknown Unknown Uncoded 01/12/24 13:27 From KEFLEX Allergy Unknown RASH Uncoded 01/12/24 13:27 Metoprolol Tartrate Allergy Unknown Unknown Uncoded 01/12/24 13:27 Sulfacet-R Allergy Unknown Unknown Uncoded 01/12/24 13:27 [facility]LY [facility] Past Medical History Medical History (Updated 01/12/24 @ 16:10 by Sydni Jacob PRINT PRESS OPERATOR-C) Heart palpitations Constipation LLQ abdominal pain Anxiety Breast cancer screening Breast pain, left Elevated vitamin B12 level Neck muscle spasm Strain of neck muscle Low back pain Pubic ramus fracture Sore throat Skin tear of upper arm without complication Head injury, acute, without loss of consciousness Fall Dizziness Medication noncompliance due to cognitive impairment RLQ abdominal pain Sinusitis Flu syndrome Precordial chest pain Atypical chest pain Cold intolerance Former smoker Pulmonary nodule Abnormal lung sounds Fever Bilateral calf pain Nausea Left lower quadrant abdominal pain Dysuria Fatigue Lower extremity weakness HTN (hypertension) Aortic stenosis Obstipation Dark stools Lower abdominal pain Gastroenteritis Neck pain on right side URI (upper respiratory infection) Back pain Cough Chest pain Rhinitis Elevated BP without diagnosis of hypertension Non-rheumatic aortic stenosis Diverticulitis GERD (gastroesophageal reflux disease) Cat scratch Cat bite Epigastric discomfort Diarrhea Nausea Viral syndrome GERD (gastroesophageal reflux disease) Neuropathy Arthritis GERD (gastroesophageal reflux disease) HTN (hypertension) Irritable bowel Heart murmur Surgical History (Updated 01/12/24 @ 16:10 by HAWA JonesC) S/P TAVR (transcatheter aortic valve replacement) Hx of esophagogastroduodenoscopy Hx of colonoscopy History of tonsillectomy History of appendectomy Family History Family History Father No problems noted. Mother No problems noted. Social History Social History Household Members: Children Housing: House Are you a primary healthcare recruiter to a significant other at home: No Do you presently have visiting nurse or other home services: No Alcohol intake: former Patient Tobacco Use Status: Former Tobacco user Quit Date: 2013 Tobacco use type: Cigarette e-Cigarette/Vaping Use: Never Used Second Hand Smoke Exposure: No Advance Directives: Yes Advance Directives on File: Yes Advance Directives Date on File: 09/21/23 Do you have a plan to hurt others: No Plan service: No Current occupational status: retired Cognitive needs: No Hearing needs: No Vision needs: Yes (glasses) Physical Exam Vital Signs: Vital Signs: Last Vital Signs Temp 98.7 F 01/13/24 19:59 Pulse 94 01/13/24 19:59 Resp 16 01/13/24 19:59 BP 148/75 H 01/13/24 19:59 Pulse Ox 97 01/13/24 19:59 O2 Del Method Room Air 01/13/24 19:59 BMI result Body Mass Index 26.3 Medical Decision Making Lab Data Labs: Lab Results 01/13/24 Range/Units 20:13 Urine Color Yellow Urine Appearance Clear Urine pH 6.0 (5.0-9.0) Ur Specific [place] 1.020 (1.005-1.025) Urine Protein Negative (Neg-Trace) mg/dL Urine Glucose (UA) Negative (Negative) mg/dL Urine Ketones Negative (Negative) mg/dL Urine Blood Negative (Negative) Urine Nitrite Negative (Negative) Ur Leukocyte Esterase Moderate (2+) H (Negative) Discharge Plan Discharge Prescriptions: No Action citalopram 20 mg tablet 20 mg PO BEDTIME 90 Days Qty: 90 1RF docusate sodium 100 mg capsule 100 mg PO BID PRN (Reason: constipation) 30 Days Qty: 60 1RF pantoprazole 40 mg tablet,delayed release (DR/EC) 40 mg PO QAM Qty: 30 1RF albuterol sulfate 90 mcg/actuation HFA aerosol inhaler 1 inh inhalation QID PRN (Reason: shortness of breath or wheezing) 30 Days Qty: 8.5 0RF fluticasone propionate 50 mcg/actuation spray,suspension 2 spray intranasal DAILY PRN (Reason: Allergic Symptoms) clopidogrel 75 mg tablet 75 mg PO QAM aspirin 81 mg tablet,delayed release (DR/EC) 81 mg PO QAM folic acid 400 mcg Tablet 0.4 mg PO DAILY cholecalciferol (vitamin D3) [Vitamin D3] 50 mcg (2,000 unit) Tablet 50 mcg PO DAILY alprazolam [Xanax] 0.25 mg tablet 0.25 mg PO TID PRN (Reason: anxiety) Qty: 20 0RF ondansetron 4 mg tablet,disintegrating 4 mg PO Q6H PRN (Reason: nausea and vomiting) Qty: 14 0RF acetaminophen [Tylenol] 325 mg capsule 325 mg PO Q4H PRN (Reason: pain) Qty: 30 0RF polyethylene glycol 3350 [Miralax] 17 gram/dose Powder 17 g PO DAILY PRN (Reason: Constipation) sennosides [Senna Laxative] 8.6 mg tablet 8.6 mg PO BID PRN (Reason: constipation) Qty: 14 0RF polyethylene glycol 3350 [ClearLax] 17 gram/dose powder 17 g PO DAILY Qty: 119 0RF losartan 25 mg tablet 25 mg PO DAILY coenzyme Q10 100 mg capsule 100 mg PO DAILY PRN (Reason: memory) Print Language: Icelandic
[2024-01-13 20:33] LABS: Bacteria Urine None Seen (None Seen); Hyaline Casts Urine 0-2 /LPF (0-2); Squamous Epithelial Cell Urine 0-2 /HPF (0-2); UACC Culture Trigger YES
[2024-01-13 20:40] LABS: MANUAL DIFF FLAG NO
--- NOTE | 2024-01-13 20:44 | MHC.EDTECH ---
PATIENT BLOOD DRAWN AND SWNT TO LAB .
[2024-01-13] MEDS: Phenazopyridine HCL 200 MG TABLET PO (20:46)
[2024-01-13] MEDS: Nitrofurantoin Monohyd/M-Cryst 100 MG CAPSULE PO (20:46)
[2024-01-13 20:49] LABS: Basophils Percent Auto 0.7 % (0-2); Eosinophils Absolute Auto 0.1 X10*3/uL (0.0-0.4); Eosinophils Percent Auto 3.7 % (0-4); Hematocrit 30.7 % (37.0-47.0); Hemoglobin 10.2 g/dl (12.0-16.0); Imm Gran Abs Auto 0.01 X10*3/uL (0.00-0.03); Imm Gran Pct Auto 0.3 % (0.0-0.4); Lymphocytes Absolute Auto 0.6 X10*3/uL (1.2-4.9); Lymphocytes Percent Auto 19.5 % (20-40); Mean Corpuscular HGB Conc 33.2 g/dl (31.0-35.0); Mean Corpuscular Volume 90.3 fL (80.0-98.0); Mean Platelet Volume 11.1 fL (9.4-12.3); Monocytes Absolute Auto 0.3 X10*3/uL (0.1-1.2); Monocytes Percent Auto 8.7 % (2-11); Neutrophils Percent Auto 67.1 % (45-73); Platelet Count 135 X10*3/uL (160-400); Red Cell Distribution Width 14.2 % (11.0-16.0)
[2024-01-13 20:58] LABS: Alanine Aminotransferase 9 U/L (0-31); Albumin Level 3.9 g/dL (3.5-5.0); Alkaline Phosphatase 131 U/L (39-117); Anion Gap 14 (12-20); Aspartate Amino Transferase 17 U/L (5-31); Bilirubin Direct 0.2 mg/dL (0.0-0.5); Bilirubin Total 0.5 mg/dL (0.0-1.0); Blood Urea Nitrogen 16 mg/dL (9-16); Calcium 9.9 mg/dL (8.4-10.2); Carbon Dioxide 26 mmol/L (22-29); Chloride 102 mmol/L (96-108); Creatinine Clr Calc Pharmacy 54.7; Estimated Glomerular Filt Rate > 60; Glucose Random 92 mg/dL (60-115); Lipase 16 U/L (8-78); Potassium 3.9 mmol/L (3.3-5.1); Sodium 138 mmol/L (135-145); Total Protein 6.9 g/dL (6.5-8.0)
[2024-01-13 21:43] VITALS: BP 167/97; PULSE 94; RESP 16; TEMP 36.3; O2SAT 97
[2024-01-13 22:24] VITALS: BP 167/97; PULSE 94; RESP 16; TEMP 36.3; O2SAT 97
== END 2024-01-13 22:25 | disposition home or self-care (01) ==
PROVIDERS: Nurse Practitioner Family; Emergency Provider Emergency Medicine; PCP Physician Assistant
DX: N39.0 Urinary tract infection, site not specified (principal); R30.0 Dysuria; R10.30 Lower abdominal pain, unspecified; R35.0 Frequency of micturition; Z79.899 Other long term (current) drug therapy
CPT/HCPCS: 36415; 80048; 80076; 81001; 83690; 85025; 87086; 87088; 87186; 99283; 99284

== ENCOUNTER 2024-01-16 16:06 | Outpatient (AMB) | payer MEDICARE, OTHER, SELFPAY ==
--- NOTE | 2024-01-16 16:07 | A.OFFPC_ITS ---
Vital Signs 01/16/24 16:09 Height 5 ft 6 in Weight 160 lb 6 oz BMI 25.9 BP 130/70 Blood Pressure Location Lt brachial Position Sitting Pulse 91 Pulse Source Pulse Oximeter Pulse Oximetry (%) 97 Oxygen Delivery Method Room Air Intake Visit Reasons: Feeling Overwhelmed, meds not working Intake Note: Patient is here to follow up on feeling overwhelmed and medication not working. Rail Loader Required: No Cyber Incident Handler: Not Required per policy Accompanied by: Self / Same As Patient Allergies buspirone Allergy (Intermediate, Verified 01/16/24 16:09) Rash Sulfa (Sulfonamide Antibiotics) Allergy (Intermediate, Verified 01/16/24 16:09) RASH cefuroxime Allergy (Unknown, Verified 01/16/24 16:09) Unknown garlic [GARLIC] Allergy (Unknown, Verified 01/16/24 16:09) PER H&P metronidazole [From FLAGYL] Allergy (Unknown, Verified 01/16/24 16:09) OCULAR MIGRAINES penicillamine Allergy (Unknown, Verified 01/16/24 16:09) Unknown ciprofloxacin Adverse Reaction (Intermediate, Verified 01/16/24 16:09) neuropathic pain lisinopril Adverse Reaction (Intermediate, Verified 01/16/24 16:09) Cough nitrofurantoin Adverse Reaction (Mild, Verified 01/16/24 16:09) GI side effects cefuroxime Allergy (Intermediate, Uncoded 01/16/24 16:09) wheezy cough/itch flagyl Allergy (Unknown, Uncoded 01/16/24 16:09) Unknown From KEFLEX Allergy (Unknown, Uncoded 01/16/24 16:09) RASH Metoprolol Tartrate Allergy (Unknown, Uncoded 01/16/24 16:09) Unknown Sulfacet-R Allergy (Unknown, Uncoded 01/16/24 16:09) Unknown Tobacco use date assessed: 01/16/24 Fall risk assessment: No Falls in past year Last assessed Fall Risk: 01/16/24 Dental Screening Dental Screen Date: 10/18/23 HPI Feeling Overwhelmed, meds not working HPI Details Patient is an 83 year female here today for an urgent same-day visit. She is multiple complaints today including recurrent UTI, GERD symptoms, notable bruising on her legs and arms. We discussed all of the above and focused on her UTI to which is being currently treated with Macrobid. We did discuss her anxious symptoms to which she is speaking with a mental health med provider. Taking alprazolam t.i.d.. We did discuss possibly trying a longer acting form of benzodiazepine to give her daily coverage for anxiety as she has multiple anxious triggers including her health. Often going to the ER (13 times since beginning of 2023), [facility] Medical History Heart palpitations Constipation LLQ abdominal pain Anxiety Breast cancer screening Breast pain, left Elevated vitamin B12 level Neck muscle spasm Strain of neck muscle Low back pain Pubic ramus fracture Sore throat Skin tear of upper arm without complication Head injury, acute, without loss of consciousness Fall Dizziness Medication noncompliance due to cognitive impairment RLQ abdominal pain Sinusitis Flu syndrome Precordial chest pain Atypical chest pain Cold intolerance Former smoker Pulmonary nodule Abnormal lung sounds Fever Bilateral calf pain Nausea Left lower quadrant abdominal pain Dysuria Fatigue Lower extremity weakness HTN (hypertension) Aortic stenosis Obstipation Dark stools Lower abdominal pain Gastroenteritis Neck pain on right side URI (upper respiratory infection) Back pain Cough Chest pain Rhinitis Elevated BP without diagnosis of hypertension Non-rheumatic aortic stenosis Diverticulitis GERD (gastroesophageal reflux disease) Cat scratch Cat bite Epigastric discomfort Diarrhea Nausea Viral syndrome GERD (gastroesophageal reflux disease) Neuropathy Arthritis GERD (gastroesophageal reflux disease) HTN (hypertension) Irritable bowel Heart murmur Surgical History S/P TAVR (transcatheter aortic valve replacement) Hx of esophagogastroduodenoscopy Hx of colonoscopy History of tonsillectomy History of appendectomy Family History Father No problems noted. Mother No problems noted. Social History Household Members: Children Housing: House Are you a primary lawn care worker to a significant other at home: No Do you presently have visiting nurse or other home services: No Alcohol intake: former Patient Tobacco Use Status: Former Tobacco user Quit Date: 2013 Tobacco use type: Cigarette e-Cigarette/Vaping Use: Never Used Second Hand Smoke Exposure: No Advance Directives Date on File: 09/21/23 service: No Current occupational status: retired Cognitive needs: No Hearing needs: No Vision needs: Yes (glasses) Questionnaire Thrive Questionnaire Date Thrive assessed: 09/27/23 PAIGE-7 AMB Questionnaire PAIGE-7 Date PAIGE - 7 assessed: 09/27/23 Source: Developed by Drs. Anatoliy Gavin, Peyton Hunt, Austyn Weber and colleagues, with an educational kentrell from [employer]. Review of Systems Const Denies headache(s) Eyes Denies loss of vision ENT Denies vertigo, Denies dizziness, Denies headache(s) and Denies sore throat Card Denies chest pain, Denies leg edema and Denies lightheadedness Resp Denies cough, Denies hemoptysis and Denies wheezing GI Denies abdominal pain, Denies melena, Denies constipation, Denies diarrhea and Denies vomiting Denies urinary frequency, Denies dysuria and Reports urinary urgency Musc Denies arthralgias, Denies joint swelling, Denies numbness and Denies tingling Neuro Denies Abnormal speech present, Denies behavioral changes, Reports confusion, Denies vertigo, Denies dizziness, Denies headache(s), Denies loss of vision, Denies memory loss, Denies numbness and Denies tingling Psych Reports anxiety, Denies behavioral changes, Reports confusion, Denies depression, Denies memory loss and Denies panic attacks Pradip/Lymph Denies easy bleeding and Denies easy bruising Aller/Immun Denies wheezing Physical exam (Primary Care) Vital Signs: Last Vital Signs Pulse 91 01/16/24 16:09 BP 130/70 01/16/24 16:09 Pulse Ox 97 01/16/24 16:09 Oxygen Delivery Method Room Air 01/16/24 16:09 BMI result Body Mass Index 25.9 Tobacco/Smoking Status: Tobacco use Status Tobacco use date assessed 01/16/24 01/16/24 16:15 Patient Tobacco Use Status Former Tobacco user 01/16/24 16:15 Tobacco use type Cigarette 01/16/24 16:15 e-Cigarette/Vaping Use Never Used 01/16/24 16:15 Thrive Assessment: Date of Thrive Assessment Date Thrive assessed 09/27/23 01/16/24 16:15 Const General: healthy appearing, no acute distress, alert, awake and confusion Nutritional Appearance: well nourished Orientation/consciousness: oriented to person, oriented to place, oriented to time and confusion HENMT Ears: TM's normal bilaterally General nose exam: Normal nasal mucous membranes and turbinates present Eyes Conjunctivae: conjunctivae normal Sclerae: sclerae normal Pupils: Equal, round and reactive pupils present Neck Neck: Yes no lymphadenopathy and Yes no JVD Thyroid: Thyroid normal Carotids: no bruits Resp Effort & Inspection: normal respiratory effort and not tachypneic Auscultation: no crackles, no rales, no rhonchi and no wheezes Cardio Rate: regular rate Rhythm: regular rhythm Heart sounds: no murmurs and normal S1 and S2 GI Palpation (GI): Soft to palpation, nontender, no hepatomegaly and no splenomegaly Auscultation: normal bowel sounds Skin General skin exam: no rashes or lesions noted and dry skin Neuro General: oriented to person, oriented to place, oriented to time and confusion Cranial nerves: Yes Equal, round and reactive pupils present Speech: No Abnormal speech present Gait exam (Neuro): Normal gait present Motor exam (neuro): no tremor noted Extrem Right upper extremity: full ROM Left upper extremity: full ROM Right lower extremity: full ROM; no edema Left lower extremity: full ROM; no edema Psych Mental Status: mental status grossly normal Speech and movement: Normal speech and movement present Affect: normal affect Attitude: cooperative Thought process: Normal thought process present Assessment and Plan Assessment & Plan (1) Generalized anxiety disorder: Code(s): F41.1 - Generalized anxiety disorder Plan: PATIENT CONTINUES TO WHAT SEEMS TO BE SEVERE UNCONTROLLED ANXIETY HENCE HER [facility] ER VISITS AND CALLS INTO THE PCP OFFICE. SHE DOES SEE A MENTAL HEALTH MED PROVIDER WHOM IS WORKING WITH HER ON MED MANAGEMENT. SHE IS CURRENTLY LOOKING FOR A NEW THERAPIST. AT THIS TIME USING CELEXA 20 MG AND ALPRAZOLAM 0.25 MG T.I.D. P.R.N.. WE DID DISCUSS POSSIBLY TRYING A LONGER-ACTING FORM OF BENZODIAZEPINE TO GIVE HER DAILY COVERAGE OF HER ANXIETY INM HOPES IT REDUCE HER DAILY ANXIOUS SYMPTOMS AND NEED TO SEEK MEDICAL TREATMENT AND ATTENTION. PATIENT WILLING TO TRIAL LOW-DOSE CLONAZEPAM 0.5 MG OVER THE NEXT 5 DAYS TO SEE IF MORE EFFECTIVE. (2) Balance problem: Code(s): R26.89 - Other abnormalities of gait and mobility Plan: Does have issues with her balance. Currently using a cane. She is willing to do physical therapy as outpatient to help her with her balance. She has not had any recent falls. (3) Urinary tract infection: Code(s): N39.0 - Urinary tract infection, site not specified Qualifiers: Urinary tract infection type: acute cystitis Hematuria presence: without hematuria Qualified Code(s): N30.00 - Acute cystitis without hematuria Plan: Recently diagnosed with a mild UTI. Has been placed on Macrobid. Does have small side effect increased nausea. Advised her to try to withstand the side effects and do full course of antibiotic to eradicate the UTI. We did discuss the possible etiologies to recurrent UTIs and family and hygiene. She expresses her understand . Orders: Orders PT Evaluation and Treatment 01/16/24 R26.89 - Other abnormalities of gait and mobility Medications: New clonazepam 0.5 mg PO DAILY 5 days 5 tabs 0RF F41.1 - Generalized anxiety disorder Discontinued phenazopyridine (Pyridium) Discontinued Reason: Doctor's Order 100 mg PO TID PRN 6 tabs 0RF pain Coding Level of Care Code Est Pt Level 4 (83543) Diagnoses Generalized anxiety disorder F41.1 Balance problem R26.89 Acute cystitis without hematuria N30.00 Urinary tract infection type: acute cystitis Hematuria presence: without hematuria
[2024-01-16 16:09] VITALS: BP 130/70; PULSE 91; O2SAT 97; BMI 25.9
== END 2024-01-16 16:56 | disposition home or self-care (01) ==
PROVIDERS: PCP Physician Assistant; Visit Provider Physician Assistant
DX: R26.89 Other abnormalities of gait and mobility (principal); F41.1 Generalized anxiety disorder; N30.00 Acute cystitis without hematuria
CPT/HCPCS: 99214

== ENCOUNTER 2024-01-25 11:38 | Outpatient (REF) | payer MEDICARE, OTHER, SELFPAY ==
--- NOTE | ~2024-01-25 | XR_ITS ---
EXAMINATION: XR CHEST CLINICAL INFORMATION: Cough COMPARISON: X-ray 11/13/2023 TECHNIQUE: 2 views of the chest were obtained. FINDINGS: Rotated positioning. Cardiomediastinal silhouette is stable from previous. The lungs are hypoexpanded. Hazy patchy nodular opacities in the right lower lung, slightly more prominent as compared to previous, could represent infectious/inflammatory process. No left lung consolidation. No effusion. No pulmonary edema. No pneumothorax is seen. Thoracic spine degeneration. XR/XR chest 2V IMPRESSION: Right basilar hazy patchy/nodular opacities could reflect infectious/inflammatory process. Recommendation is for a follow-up chest series to be obtained following treatment and/or resolution of symptoms to assure resolution of this appearance.
[2024-01-25 13:31] LABS: Appearance Urine Clear; Color Urine Yellow; Glucose Urine UA Negative (Negative); Leukocyte Esterase Urine Small (1+) (Negative); Nitrite Urine Negative (Negative); UMIC TRIGGER UACC YES; Urine Blood Negative (Negative); Urine Ketones Negative (Negative); Urine Protein Negative (Neg-Trace)
[2024-01-25 13:39] LABS: Bacteria Urine None Seen (None Seen); Hyaline Casts Urine 0-2 /LPF (0-2); RBC Urine 0-2 /HPF (0-2); UACC Culture Trigger YES
== END 2024-01-25 11:39 | disposition home or self-care (01) ==
LOC: HO.HMGCX 11:38
PROVIDERS: PCP Physician Assistant; Visit Provider Physician Assistant
DX: R05.9 Cough, unspecified (principal); R82.90 Unspecified abnormal findings in urine
CPT/HCPCS: 71046; 81001; 87086

== ENCOUNTER 2024-01-30 09:53 | Outpatient (REF) | payer MEDICARE, OTHER, SELFPAY ==
[2024-01-30 10:24] LABS: Hematocrit 32.5 % (37.0-47.0); Hemoglobin 10.4 g/dl (12.0-16.0); Mean Corpuscular Hemoglobin 29.3 pg (27.0-33.0); Mean Corpuscular Volume 91.5 fL (80.0-98.0); Mean Platelet Volume 11.3 fL (9.4-12.3); Platelet Count 145 X10*3/uL (160-400); Red Blood Count 3.55 X10*6/uL (4.20-5.50); Red Cell Distribution Width 13.6 % (11.0-16.0); White Blood Count 3.9 X10*3/uL (4.8-10.8)
[2024-01-30 11:06] LABS: Alanine Aminotransferase 8 U/L (0-31); Albumin Level 4.1 g/dL (3.5-5.0); Alkaline Phosphatase 141 U/L (39-117); Aspartate Amino Transferase 16 U/L (5-31); Bilirubin Direct 0.2 mg/dL (0.0-0.5); Bilirubin Total 0.6 mg/dL (0.0-1.0); Iron 60 mcg/dL (30-160); Percent Iron Saturation 20 % (15-50); Total Iron Binding Capacity 298 mcg/dL (228-428); Total Protein 7.4 g/dL (6.5-8.0); Unsaturated Iron Binding 238 ug/dL
[2024-01-30 11:09] LABS: Appearance Urine Cloudy; Color Urine Yellow; Glucose Urine UA Negative (Negative); Leukocyte Esterase Urine Small (1+) (Negative); Nitrite Urine Negative (Negative); Specific Gravity - Urine 1.025 (1.005-1.025); UMIC TRIGGER UACC YES; Urine Blood Negative (Negative); Urine Ketones Negative (Negative); Urine Protein Negative (Neg-Trace)
[2024-01-30 11:27] LABS: Bacteria Urine None Seen (None Seen); Hyaline Casts Urine 0-2 /LPF (0-2); RBC Urine 0-2 /HPF (0-2); Squamous Epithelial Cell Urine 0-2 /HPF (0-2); UACC Culture Trigger YES; WBC Urine 0-5 /HPF (0-5)
== END 2024-01-30 09:54 | disposition home or self-care (01) ==
LOC: HO.LAB 09:53
PROVIDERS: Absent Provider Physician Assistant; PCP Physician Assistant; Visit Provider Internal Medicine
DX: R74.8 Abnormal levels of other serum enzymes (principal); D50.9 Iron deficiency anemia, unspecified; Z95.2 Presence of prosthetic heart valve; R82.90 Unspecified abnormal findings in urine
CPT/HCPCS: 36415; 80076; 81001; 83540; 85027; 87086

== ENCOUNTER 2024-02-06 11:12 | Emergency (ER) | payer MEDICARE, OTHER, SELFPAY ==
--- NOTE | ~2024-02-06 | XR_ITS ---
EXAMINATION: XR CHEST CLINICAL INFORMATION: Cough. COMPARISON: 01/25/2024. TECHNIQUE: 2 views of the chest were obtained. FINDINGS: TAVR. The cardiomediastinal silhouette is stable. The lungs are well expanded. Chronic airway wall thickening and increased interstitial markings. No focal consolidation. Old right-sided rib fractures. Degenerative changes in the spine. XR/XR chest 2V IMPRESSION: Chronic airways disease. No lobar consolidation.
[2024-02-06 11:18] VITALS: BP 151/88; PULSE 94; RESP 16; TEMP 36.8; O2SAT 99; BMI 25.0
--- NOTE | 2024-02-06 11:20 | ED.GENADULT ---
HPI - General Adult General Chief complaint: Skin/Abscess/Foreign Body Stated complaint: Itchy all over Time Seen by Provider: 02/06/24 11:20 Source: patient Mode of arrival: ambulatory Limitations: no limitations History of Present Illness ED Provider: Tony LOGAN HPI narrative: 83-year-old female history of memory impairment,anxiety, depression, frequent falls (recently discharged from [facility]), hypertension, aortic stenosis, embolic stroke, diverticulitis, GERD, hypertension, irritable bowel disease presents to the emergency department complaints itching to the right side of the breast/chest, patient reports this has been going on for the past 2 days. She tells me that she thinks this is from mold that she found in her sink. She denies new detergents or lotions. Patient does report she has a new sports bra/brown that she has been wearing and she has not sure if this could be contributing. She reports she feels some discomfort as well as itchiness to that region. No fevers, chills, nausea, vomiting, abdominal pain, headache, vision changes, dizziness, weakness, chest pain or shortness of breath. She also endorsed to triage that she was having urinary incontinence however she tells me that this is her baseline, this is unchanged and she is being followed for this. Also endorsed to them that she has been having forgetfulness however she has a history of this in the past and she has follow-up with a specialist tomorrow. NIH stroke scale 0. Related Data Home Medications ?Medication ?Instructions ?Recorded ?Confirmed polyethylene glycol 3350 17 17 g PO DAILY PRN Constipation 10/11/23 01/12/24 gram/dose oral powder (Miralax) losartan 25 mg tablet 25 mg PO DAILY 11/02/23 01/12/24 cholecalciferol (vitamin D3) 50 50 mcg PO DAILY 11/23/23 01/12/24 mcg (2,000 unit) tablet (Vitamin D3) clopidogrel 75 mg tablet 75 mg PO QAM 11/23/23 01/12/24 fluticasone propionate 50 2 spray intranasal DAILY PRN 11/23/23 01/12/24 mcg/actuation nasal Allergic Symptoms spray,suspension folic acid 400 mcg tablet 0.4 mg PO DAILY 11/23/23 01/12/24 Previous Rx's ?Medication ?Instructions ?Recorded citalopram 20 mg tablet 20 mg PO BEDTIME 90 days #90 tabs 10/23/23 docusate sodium 100 mg capsule 100 mg PO BID PRN constipation 30 11/08/23 days #60 caps alprazolam 0.25 mg tablet (Xanax) 0.25 mg PO TID PRN anxiety #20 tabs 11/24/23 acetaminophen 325 mg capsule 325 mg PO Q4H PRN pain #30 caps 12/17/23 (Tylenol) ondansetron 4 mg disintegrating 4 mg PO Q6H PRN nausea and 12/17/23 tablet vomiting #14 tabs pantoprazole 40 mg tablet,delayed 40 mg PO QAM #30 tabs 12/17/23 release polyethylene glycol 3350 17 17 g PO DAILY #119 grams 01/04/24 gram/dose oral powder (ClearLax) sennosides 8.6 mg tablet (Senna 8.6 mg PO BID PRN constipation #14 01/04/24 Laxative) tabs albuterol sulfate 90 mcg/actuation 1 inh inhalation QID PRN shortness 01/13/24 aerosol inhaler of breath or wheezing 30 days #8.5 grams clonazepam 0.5 mg tablet 0.5 mg PO DAILY 5 days #5 tabs 01/16/24 doxycycline monohydrate 100 mg 100 mg PO BID 5 days #10 caps 01/25/24 capsule phenazopyridine 200 mg tablet 200 mg PO TID 6 doses #6 tabs 01/30/24 (Pyridium) aspirin 81 mg tablet,delayed 81 mg PO QAM #90 tabs 02/05/24 release prednisone 20 mg tablet 20 mg PO DAILY 5 days #5 tabs 02/06/24 Allergies Allergy/AdvReac Type Severity Reaction Status Date / Time buspirone Allergy Intermediate Rash Verified 02/06/24 11:20 Sulfa (Sulfonamide Allergy Intermediate RASH Verified 02/06/24 11:20 Antibiotics) cefuroxime Allergy Unknown Unknown Verified 02/06/24 11:20 garlic [GARLIC] Allergy Unknown PER H&P Verified 02/06/24 11:20 metronidazole [From FLAGYL] Allergy Unknown OCULAR Verified 02/06/24 11:20 MIGRAINES penicillamine Allergy Unknown Unknown Verified 02/06/24 11:20 ciprofloxacin AdvReac Intermediate neuropathic Verified 02/06/24 11:20 pain lisinopril AdvReac Intermediate Cough Verified 02/06/24 11:20 nitrofurantoin AdvReac Mild GI side Verified 02/06/24 11:20 effects cefuroxime Allergy Intermediate wheezy Uncoded 01/16/24 16:09 cough/itch flagyl Allergy Unknown Unknown Uncoded 01/16/24 16:09 From KEFLEX Allergy Unknown RASH Uncoded 01/16/24 16:09 Metoprolol Tartrate Allergy Unknown Unknown Uncoded 01/16/24 16:09 Sulfacet-R Allergy Unknown Unknown Uncoded 01/16/24 16:09 Review of Systems Review of Systems: Yes all other systems are reviewed and are negative [facility] Past Medical History Attestation statement: The following information was validated with the patient. Source: old records reviewed and nursing notes reviewed Medical History (Updated 02/06/24 @ 12:45 by ROMAINE Miller) Cough Heart palpitations Constipation LLQ abdominal pain Anxiety Breast cancer screening Breast pain, left Elevated vitamin B12 level Neck muscle spasm Strain of neck muscle Low back pain Pubic ramus fracture Sore throat Skin tear of upper arm without complication Head injury, acute, without loss of consciousness Fall Dizziness Medication noncompliance due to cognitive impairment RLQ abdominal pain Sinusitis Flu syndrome Precordial chest pain Atypical chest pain Cold intolerance Former smoker Pulmonary nodule Abnormal lung sounds Fever Bilateral calf pain Nausea Left lower quadrant abdominal pain Dysuria Fatigue Lower extremity weakness HTN (hypertension) Aortic stenosis Obstipation Dark stools Lower abdominal pain Gastroenteritis Neck pain on right side URI (upper respiratory infection) Back pain Chest pain Rhinitis Elevated BP without diagnosis of hypertension Non-rheumatic aortic stenosis Diverticulitis GERD (gastroesophageal reflux disease) Cat scratch Cat bite Epigastric discomfort Diarrhea Nausea Viral syndrome GERD (gastroesophageal reflux disease) Neuropathy Arthritis GERD (gastroesophageal reflux disease) HTN (hypertension) Irritable bowel Heart murmur Surgical History S/P TAVR (transcatheter aortic valve replacement) Hx of esophagogastroduodenoscopy Hx of colonoscopy History of tonsillectomy History of appendectomy Family History Family History Father No problems noted. Mother No problems noted. Social History Social History Household Members: Children Housing: House Are you a primary day care assistant to a significant other at home: No Do you presently have visiting nurse or other home services: No Alcohol intake: former Patient Tobacco Use Status: Former Tobacco user Tobacco use type: Cigarette e-Cigarette/Vaping Use: Never Used Second Hand Smoke Exposure: No Advance Directives: Yes Advance Directives on File: Yes Advance Directives Date on File: 09/21/23 Do you have a plan to hurt others: No Plan service: No Current occupational status: retired Cognitive needs: No Hearing needs: No Vision needs: Yes (glasses) Physical Exam ED Vital Signs: Vital Signs - 24 hr 02/06/24 11:18 Temperature 98.3 F Pulse Rate 94 Respiratory Rate 16 Blood Pressure 151/88 H Pulse Oximetry 99 Oxygen Delivery Method Room Air BMI result Body Mass Index 25.0 vss Appearance: Alert.? Oriented X3.? No acute distress.? Head: Normocephalic, atraumatic, no step-offs or deformities Eyes: Pupils equal, round and reactive to light.? Neck: Normal inspection.? Neck supple.? CVS: Normal heart rate and rhythm.? Pulses normal.? Respiratory: No respiratory distress.? Breath sounds normal.? Abdomen: Soft and nontender.? Skin: Skin warm and dry.? Normal skin color.? Normal skin turgor.? + excoriations to r lateral aspect of chest wall/ breast Extremities: No lower extremity edema.? No calf ttp. 5/5 strength to bilateral upper and lower extremities Neuro: Oriented X 3.? No motor deficit.? No sensory deficit. CN 2-12 intact Course Course Course Narrative: This is a Rapid Medical Examination (RME) performed by José Miguel Clemens PA-C in triage. Full HPI, ROS, assessment and treatment plan per primary provider in the Main ED. 83 yo female hx of anxiety, depression, memory impairment, HTN, aortic stenosis, embolic stroke, diverticulitis, GERD, and IBS here for eval of generalized pruritis. admits to finding mold in her house and is concerned this could be related. endorses associated memory issues, urinary incontinence, and cough x6 months. well appearing. NAD. aox3. no rashes. ambulating with steady gait assisted by cane. Plan: labs, UA, cxr ordered. Reevaluation(s) Reevaluation #1: Will discharge patient with prednisone, advised her to follow-up with PCP. Educated patient on diagnosis and treatment plan, answered all question, patient verbalizes understanding. At this time patient will be discharged home, advised to return with new or worsening symptoms. Educated on worrisome signs and symptoms and when to return. At this time I feel comfortable discharge home. Medical Decision Making Medical Decision Making [facility] Narrative: 1256 83 year old female presents w/ itching to right side of breast / chest PE excoriations to r lateral aspect of chest wall/ breast History and physical exam concerning for contact dermatitis versus allergic reaction. Less likely shingles. Unlikely necrotizing infection. Unlikely systemic illness. No signs of gangrene. Unlikely metabolic derangements. Unlikely liver issues. Cough has been going on for months, is intermittent and at times is not present this is likely chronic cough. I do not suspect PE, ACS, acute respiratory distress Plan at this time labs, imaging. Differential Diagnosis Differential Diagnoses: The differential diagnosis associated with the presentation includes History and physical exam concerning for contact dermatitis versus allergic reaction. Less likely shingles. Unlikely necrotizing infection. Unlikely systemic illness. No signs of gangrene. Unlikely metabolic derangements. Unlikely liver issues. Cough has been going on for months, is intermittent and at times is not present this is likely chronic cough. I do not suspect PE, ACS, acute respiratory distress Admission/Observation Consideration of admission/observation: Escalation of care including admission/observation considered Unlikely Lab Data [facility] Lab Attestation statement: I reviewed the patient's lab results. 02/06/24 11:32 02/06/24 11:32 Labs: Lab Results 02/06/24 Range/Units 11:32 WBC 3.3 L (4.8-10.8) X10*3/uL RBC 3.45 L (4.20-5.50) X10*6/uL Hgb 10.4 L (12.0-16.0) g/dl Hct 31.4 L (37.0-47.0) % MCV 91.0 (80.0-98.0) fL MCH 30.1 (27.0-33.0) pg MCHC 33.1 (31.0-35.0) g/dl RDW 13.7 (11.0-16.0) % Plt Count 153 L (160-400) X10*3/uL MPV 11.2 (9.4-12.3) fL Immature Gran % (Auto) 0.3 (0.0-0.4) % Neut % (Auto) 65.3 (45-73) % Lymph % (Auto) 17.0 L (20-40) % Aurora % (Auto) 11.9 H (2-11) % Eos % (Auto) 4.6 H (0-4) % Baso % (Auto) 0.9 (0-2) % Lymph # (Auto) 0.6 L (1.2-4.9) X10*3/uL Aurora # (Auto) 0.4 (0.1-1.2) X10*3/uL Eos # (Auto) 0.2 (0.0-0.4) X10*3/uL Baso # (Auto) 0.0 (0.0-0.2) X10*3/uL Abs Immat Gran (auto) 0.01 (0.00-0.03) X10*3/uL Absolute Neuts (auto) 2.2 (2.0-8.3) x10*3/uL Absolute Nucleated RBC 0.000 (0.0-0.012) X10*3/uL Nucleated RBC % (auto) 0.0 (0.0-0.2) /100WBC Sodium 139 (135-145) mmol/L Potassium 4.2 (3.3-5.1) mmol/L Chloride 102 (96-108) mmol/L Carbon Dioxide 29 (22-29) mmol/L Anion Gap 12 (12-20) BUN 22 H (9-16) mg/dL Creatinine 0.84 (0.5-1.4) mg/dL Estim Creat Clear Calc 47.4 Estimated GFR > 60 Random Glucose 105 (60-115) mg/dL Calcium 10.2 (8.4-10.2) mg/dL Magnesium 2.0 (1.6-2.6) mg/dL Total Bilirubin 0.5 (0.0-1.0) mg/dL AST 18 (5-31) U/L ALT 8 (0-31) U/L Alkaline Phosphatase 134 H (39-117) U/L Total Protein 7.5 (6.5-8.0) g/dL Albumin 4.1 (3.5-5.0) g/dL Lipase 26 (8-78) U/L Influenza Type A (PCR) NEGATIVE (Negative) Influenza Type B (PCR) NEGATIVE (Negative) RSV RNA Qual (PCR) NEGATIVE (Negative) SARS-CoV-2 RNA (RT-PCR) NEGATIVE (Negative) Independent Interpretation I performed an independent interpretation of an: Plain X-Ray (wet read normal ) Radiology Impression Discussion of test interpretation with radiology: I have reviewed the radiologist's reading. External Record Review External record reviewed: Inpatient record, Office record, Outpatient record, Prior outpatient labs, Prior outpatient radiology, Primary care record and Outside ED record Prescription Management I considered prescription management with: Other (prednsione ) Chronic Conditions Patient?s care impacted by: Hypertension and Other Critical Care Time Critical Care Time Critical Care Time: No Discharge Plan Discharge Clinical Impression: Itchy skin, Pancytopenia, Cough Patient Disposition: Home, Self-Care Instructions: Itchy Skin (ED), Pancytopenia (DC) Additional Instructions: Take your medications as prescribed. If you were prescribed antibiotics today, it is important that you take your medication to their entirety, do not skip any doses, do not finish them early. Follow-up with your primary care provider this week. Return to the emergency department with new or worsening symptoms. Such as fevers, chills, chest pain, shortness of breath, nausea, vomiting, dizziness, headache, vision changes, lethargy In case of emergency call 911 Follow-up with PCP within a week. Prescriptions: New prednisone 20 mg tablet 20 mg PO DAILY 5 Days Qty: 5 0RF No Action citalopram 20 mg tablet 20 mg PO BEDTIME 90 Days Qty: 90 1RF docusate sodium 100 mg capsule 100 mg PO BID PRN (Reason: constipation) 30 Days Qty: 60 1RF pantoprazole 40 mg tablet,delayed release (DR/EC) 40 mg PO QAM Qty: 30 1RF albuterol sulfate 90 mcg/actuation HFA aerosol inhaler 1 inh inhalation QID PRN (Reason: shortness of breath or wheezing) 30 Days Qty: 8.5 0RF doxycycline monohydrate 100 mg capsule 100 mg PO BID 5 Days Qty: 10 0RF phenazopyridine [Pyridium] 200 mg tablet 200 mg PO TID Qty: 6 0RF aspirin 81 mg tablet,delayed release (DR/EC) 81 mg PO QAM Qty: 90 0RF fluticasone propionate 50 mcg/actuation spray,suspension 2 spray intranasal DAILY PRN (Reason: Allergic Symptoms) clopidogrel 75 mg tablet 75 mg PO QAM folic acid 400 mcg Tablet 0.4 mg PO DAILY cholecalciferol (vitamin D3) [Vitamin D3] 50 mcg (2,000 unit) Tablet 50 mcg PO DAILY alprazolam [Xanax] 0.25 mg tablet 0.25 mg PO TID PRN (Reason: anxiety) Qty: 20 0RF ondansetron 4 mg tablet,disintegrating 4 mg PO Q6H PRN (Reason: nausea and vomiting) Qty: 14 0RF acetaminophen [Tylenol] 325 mg capsule 325 mg PO Q4H PRN (Reason: pain) Qty: 30 0RF polyethylene glycol 3350 [Miralax] 17 gram/dose Powder 17 g PO DAILY PRN (Reason: Constipation) sennosides [Senna Laxative] 8.6 mg tablet 8.6 mg PO BID PRN (Reason: constipation) Qty: 14 0RF polyethylene glycol 3350 [ClearLax] 17 gram/dose powder 17 g PO DAILY Qty: 119 0RF losartan 25 mg tablet 25 mg PO DAILY clonazepam 0.5 mg tablet 0.5 mg PO DAILY 5 Days Qty: 5 0RF Referrals: [facility] [Outside] - 1 week Nick Gomez PA-C [Primary Care Provider] - 1 day Print Language: Greek
[2024-02-06 11:37] LABS: MANUAL DIFF FLAG NO
[2024-02-06 11:40] LABS: Basophils Percent Auto 0.9 % (0-2); Eosinophils Absolute Auto 0.2 X10*3/uL (0.0-0.4); Eosinophils Percent Auto 4.6 % (0-4); Hematocrit 31.4 % (37.0-47.0); Hemoglobin 10.4 g/dl (12.0-16.0); Imm Gran Abs Auto 0.01 X10*3/uL (0.00-0.03); Imm Gran Pct Auto 0.3 % (0.0-0.4); Lymphocytes Absolute Auto 0.6 X10*3/uL (1.2-4.9); Mean Corpuscular HGB Conc 33.1 g/dl (31.0-35.0); Mean Corpuscular Hemoglobin 30.1 pg (27.0-33.0); Mean Platelet Volume 11.2 fL (9.4-12.3); Monocytes Absolute Auto 0.4 X10*3/uL (0.1-1.2); Monocytes Percent Auto 11.9 % (2-11); Neutrophils Absolute Auto 2.2 x10*3/uL (2.0-8.3); Neutrophils Percent Auto 65.3 % (45-73); Platelet Count 153 X10*3/uL (160-400); Red Blood Count 3.45 X10*6/uL (4.20-5.50); Red Cell Distribution Width 13.7 % (11.0-16.0); White Blood Count 3.3 X10*3/uL (4.8-10.8)
[2024-02-06 11:57] LABS: Alanine Aminotransferase 8 U/L (0-31); Albumin Level 4.1 g/dL (3.5-5.0); Alkaline Phosphatase 134 U/L (39-117); Anion Gap 12 (12-20); Aspartate Amino Transferase 18 U/L (5-31); Bilirubin Total 0.5 mg/dL (0.0-1.0); Blood Urea Nitrogen 22 mg/dL (9-16); Calcium 10.2 mg/dL (8.4-10.2); Carbon Dioxide 29 mmol/L (22-29); Chloride 102 mmol/L (96-108); Creatinine Clr Calc Pharmacy 47.4; Estimated Glomerular Filt Rate > 60; Glucose Random 105 mg/dL (60-115); Lipase 26 U/L (8-78); Potassium 4.2 mmol/L (3.3-5.1); Sodium 139 mmol/L (135-145); Total Protein 7.5 g/dL (6.5-8.0)
[2024-02-06 12:31] LABS: Influenza A PCR NEGATIVE (Negative); Influenza B PCR NEGATIVE (Negative); Resp Syncy Virus RNA Qual PCR NEGATIVE (Negative); SARS COV2 PCR INHOUSE NEGATIVE (Negative)
[2024-02-06 13:08] VITALS: BP 137/74; PULSE 91; RESP 18; TEMP 36.8; O2SAT 97
== END 2024-02-06 13:09 | disposition home or self-care (01) ==
PROVIDERS: Physician Assistant Medical; Emergency Provider Emergency Medicine; PCP Physician Assistant
DX: L29.9 Pruritus, unspecified (principal); D61.818 Other pancytopenia; R05.9 Cough, unspecified; I10 Essential (primary) hypertension; Z11.52 Encounter for screening for COVID-19
CPT/HCPCS: 0241U; 71046; 80053; 83690; 83735; 85025; 99282; 99283

== ENCOUNTER 2024-02-08 11:20 | Emergency (ER) | payer MEDICARE, OTHER, SELFPAY ==
[2024-02-08 11:23] VITALS: BP 136/78; PULSE 80; RESP 18; TEMP 36.6; O2SAT 100; BMI 24.9
--- NOTE | 2024-02-08 11:24 | ED_ITS ---
HPI - Abdominal Pain General Chief Complaint: Abdominal Pain Stated Complaint: Abd pain Time Seen by Provider: 02/08/24 11:54 History of Present Illness HPI narrative: The patient is an 83-year-old woman who came to the hospital this morning because of lower abdominal pain. She says that she woke up with the pain this morning at around 07:00. She has not eaten anything today. She had some nausea and some retching but no vomiting. She has not had a fever. She had her son drive her to the hospital because she did not feel well. The patient is very vague as to whether she had any of the symptoms yesterday. She says that she chronically does not feel very well and has trouble saying when she last felt very well. She says that she might have some mild discomfort with urination but this is also vague. No chest pain or shortness of breath. The patient comes frequently to the emergency room. Today's visit represents her 16th ER visit at this hospital for this calendar year. Related Data Home Medications ?Medication ?Instructions ?Recorded ?Confirmed polyethylene glycol 3350 17 17 g PO DAILY PRN Constipation 10/11/23 01/12/24 gram/dose oral powder (Miralax) losartan 25 mg tablet 25 mg PO DAILY 11/02/23 01/12/24 cholecalciferol (vitamin D3) 50 50 mcg PO DAILY 11/23/23 01/12/24 mcg (2,000 unit) tablet (Vitamin D3) clopidogrel 75 mg tablet 75 mg PO QAM 11/23/23 01/12/24 fluticasone propionate 50 2 spray intranasal DAILY PRN 11/23/23 01/12/24 mcg/actuation nasal Allergic Symptoms spray,suspension folic acid 400 mcg tablet 0.4 mg PO DAILY 11/23/23 01/12/24 Previous Rx's ?Medication ?Instructions ?Recorded citalopram 20 mg tablet 20 mg PO BEDTIME 90 days #90 tabs 10/23/23 docusate sodium 100 mg capsule 100 mg PO BID PRN constipation 30 11/08/23 days #60 caps acetaminophen 325 mg capsule 325 mg PO Q4H PRN pain #30 caps 12/17/23 (Tylenol) ondansetron 4 mg disintegrating 4 mg PO Q6H PRN nausea and 12/17/23 tablet vomiting #14 tabs pantoprazole 40 mg tablet,delayed 40 mg PO QAM #30 tabs 12/17/23 release polyethylene glycol 3350 17 17 g PO DAILY #119 grams 01/04/24 gram/dose oral powder (ClearLax) sennosides 8.6 mg tablet (Senna 8.6 mg PO BID PRN constipation #14 01/04/24 Laxative) tabs albuterol sulfate 90 mcg/actuation 1 inh inhalation QID PRN shortness 01/13/24 aerosol inhaler of breath or wheezing 30 days #8.5 grams clonazepam 0.5 mg tablet 0.5 mg PO DAILY 5 days #5 tabs 01/16/24 doxycycline monohydrate 100 mg 100 mg PO BID 5 days #10 caps 01/25/24 capsule phenazopyridine 200 mg tablet 200 mg PO TID 6 doses #6 tabs 01/30/24 (Pyridium) aspirin 81 mg tablet,delayed 81 mg PO QAM #90 tabs 02/05/24 release prednisone 20 mg tablet 20 mg PO DAILY 5 days #5 tabs 02/06/24 alprazolam 0.25 mg tablet (Xanax) 0.25 mg PO TID PRN anxiety 30 days 02/07/24 #90 tabs Allergies Allergy/AdvReac Type Severity Reaction Status Date / Time buspirone Allergy Intermediate Rash Verified 02/08/24 11:25 Sulfa (Sulfonamide Allergy Intermediate RASH Verified 02/08/24 11:25 Antibiotics) cefuroxime Allergy Unknown Unknown Verified 02/08/24 11:25 garlic [GARLIC] Allergy Unknown PER H&P Verified 02/08/24 11:25 metronidazole [From FLAGYL] Allergy Unknown OCULAR Verified 02/08/24 11:25 MIGRAINES penicillamine Allergy Unknown Unknown Verified 02/08/24 11:25 ciprofloxacin AdvReac Intermediate neuropathic Verified 02/08/24 11:25 pain lisinopril AdvReac Intermediate Cough Verified 02/08/24 11:25 nitrofurantoin AdvReac Mild GI side Verified 02/08/24 11:25 effects cefuroxime Allergy Intermediate wheezy Uncoded 02/08/24 11:25 cough/itch flagyl Allergy Unknown Unknown Uncoded 02/08/24 11:25 From KEFLEX Allergy Unknown RASH Uncoded 02/08/24 11:25 Metoprolol Tartrate Allergy Unknown Unknown Uncoded 02/08/24 11:25 Sulfacet-R Allergy Unknown Unknown Uncoded 02/08/24 11:25 Review of Systems Review of Systems Yes all other systems are reviewed and are negative FOR[facility]LY [facility], [facility] Past Medical History Medical History (Updated 02/08/24 @ 16:19 by Luis Prescott MD) Cough Heart palpitations Constipation LLQ abdominal pain Anxiety Breast cancer screening Breast pain, left Elevated vitamin B12 level Neck muscle spasm Strain of neck muscle Low back pain Pubic ramus fracture Sore throat Skin tear of upper arm without complication Head injury, acute, without loss of consciousness Fall Dizziness Medication noncompliance due to cognitive impairment RLQ abdominal pain Sinusitis Flu syndrome Precordial chest pain Atypical chest pain Cold intolerance Former smoker Pulmonary nodule Abnormal lung sounds Fever Bilateral calf pain Nausea Left lower quadrant abdominal pain Dysuria Fatigue Lower extremity weakness HTN (hypertension) Aortic stenosis Obstipation Dark stools Lower abdominal pain Gastroenteritis Neck pain on right side URI (upper respiratory infection) Back pain Chest pain Rhinitis Elevated BP without diagnosis of hypertension Non-rheumatic aortic stenosis Diverticulitis GERD (gastroesophageal reflux disease) Cat scratch Cat bite Epigastric discomfort Diarrhea Nausea Viral syndrome GERD (gastroesophageal reflux disease) Neuropathy Arthritis GERD (gastroesophageal reflux disease) HTN (hypertension) Irritable bowel Heart murmur Surgical History S/P TAVR (transcatheter aortic valve replacement) Hx of esophagogastroduodenoscopy Hx of colonoscopy History of tonsillectomy History of appendectomy Family History Family History Father No problems noted. Mother No problems noted. Social History Social History Household Members: Children Housing: House Are you a primary campground caretaker to a significant other at home: No Do you presently have visiting nurse or other home services: No Alcohol intake: former Patient Tobacco Use Status: Former Tobacco user Tobacco use type: Cigarette Smoked in Last 30 Days: No e-Cigarette/Vaping Use: Never Used Second Hand Smoke Exposure: No Use of substances other than those prescribed or required for medical reasons: No Advance Directives: Yes Advance Directives on File: Yes Advance Directives Date on File: 09/21/23 service: No Current occupational status: retired Cognitive needs: No Hearing needs: No Vision needs: Yes (glasses) Physical Exam ED Vital Signs: Vital Signs - 24 hr 02/08/24 11:23 02/08/24 12:09 02/08/24 15:40 Temperature 98 F 98.3 F 98.1 F Pulse Rate 80 84 88 Respiratory Rate 18 20 18 Blood Pressure 136/78 178/91 H 162/85 H Pulse Oximetry 100 96 96 Oxygen Delivery Method Room Air Room Air Room Air 02/08/24 17:59 Temperature 98.1 F Pulse Rate 88 Respiratory Rate 18 Blood Pressure 162/85 H Pulse Oximetry 96 Oxygen Delivery Method Room Air BMI result Body Mass Index 24.9 Const Other: The patient is awake and alert. She has a pleasant 83-year-old woman who does not seem in obvious distress. HENMT Other: The face is symmetrical. ?Mucous membranes moist. Eyes Other: Pupils are round equal, conjunctivae are clear, extraocular movements intact Neck Other: No JVD, no neck swelling, no adenopathy Resp Effort & Inspection: normal respiratory effort Auscultation: clear to auscultation bilaterally Cardio Rate: regular rate Rhythm: regular rhythm Heart sounds: S1 normal heart sound present and S2 normal heart sound present GI Other: The abdomen is flat and soft. There is some lower abdominal tenderness that seems more apparent with palpation of the right lower quadrant. No definite rebound or guarding Back/Spine/Pelvis Other: Possible right-sided CVA percussion tenderness, no left-sided CVA percussion tenderness. Skin Other: Skin is dry and unremarkable Neuro Other: The patient is awake and alert. She is very pleasant. She is appropriately oriented. Cranial nerves are grossly intact. She moves her extremities normally and seems grossly neurologically intact. Extrem Other: No calf swelling or tenderness, no asymmetry, no edema. Course Course Course Narrative: This is a Rapid Medical Examination (RME) performed by José Miguel Clemens PA-C in triage. Full HPI, ROS, assessment and treatment plan per primary provider in the Main ED. 83 yo female hx of memory impairment, anxiety, depression, frequent falls, HTN, aortic stenosis, embolic stroke, diverticulitis, GERD, IBS here for evaluation of intermittent abdominal pain which began on waking this morning. 10/10 at onset, now 8/10. Admits to decreased BM secondary to decreased PO intake. continues to report memory issues x1 year. s/p appendectomy. well appearing in triage. abd soft, ND/NT. no rebound or guarding. Plan: basics labs, UA Medical Decision Making Medical Decision Making [facility] Narrative: The patient is a very frequent user of the emergency room who presents with a complaint of abdominal pain once again. This is her 16th ER visit this calendar year. She has had 4 CT scans of the abdomen and pelvis this year. Her labs are entirely unremarkable including her urine. Case Management was consulted because of the patient's frequent ER use. Ultimately was determined that she could go home. At the time of discharge she requested 0.25 mg of alprazolam. This was given. It is not clear whether she is still getting this medication from her regular psychiatric prescriber. She claims that she believes her psychiatric prescriber will continue prescribing this medication. Lab Data 02/08/24 12:07 02/08/24 12:07 Labs: Lab Results 02/08/24 02/08/24 Range/Units 12:07 13:16 WBC 3.4 L (4.8-10.8) X10*3/uL RBC 3.50 L (4.20-5.50) X10*6/uL Hgb 10.5 L (12.0-16.0) g/dl Hct 31.7 L (37.0-47.0) % MCV 90.6 (80.0-98.0) fL MCH 30.0 (27.0-33.0) pg MCHC 33.1 (31.0-35.0) g/dl RDW 13.5 (11.0-16.0) % Plt Count 135 L (160-400) X10*3/uL MPV 11.4 (9.4-12.3) fL Immature Gran % (Auto) 0.3 (0.0-0.4) % Neut % (Auto) 74.1 H (45-73) % Lymph % (Auto) 10.9 L (20-40) % Ray % (Auto) 10.6 (2-11) % Eos % (Auto) 3.2 (0-4) % Baso % (Auto) 0.9 (0-2) % Lymph # (Auto) 0.4 L (1.2-4.9) X10*3/uL Ray # (Auto) 0.4 (0.1-1.2) X10*3/uL Eos # (Auto) 0.1 (0.0-0.4) X10*3/uL Baso # (Auto) 0.0 (0.0-0.2) X10*3/uL Abs Immat Gran (auto) 0.01 (0.00-0.03) X10*3/uL Absolute Neuts (auto) 2.5 (2.0-8.3) x10*3/uL Absolute Nucleated RBC 0.000 (0.0-0.012) X10*3/uL Nucleated RBC % (auto) 0.0 (0.0-0.2) /100WBC Sodium 141 (135-145) mmol/L Potassium 4.1 (3.3-5.1) mmol/L Chloride 103 (96-108) mmol/L Carbon Dioxide 27 (22-29) mmol/L Anion Gap 15 (12-20) BUN 19 H (9-16) mg/dL Creatinine 0.85 (0.5-1.4) mg/dL Estim Creat Clear Calc 46.9 Estimated GFR > 60 Random Glucose 93 (60-115) mg/dL Calcium 9.7 (8.4-10.2) mg/dL Magnesium 2.0 (1.6-2.6) mg/dL Total Bilirubin 0.6 (0.0-1.0) mg/dL Direct Bilirubin 0.2 (0.0-0.5) mg/dL AST 17 (5-31) U/L ALT 7 (0-31) U/L Alkaline Phosphatase 123 H (39-117) U/L C-Reactive Protein < 0.10 (< or = 0.50) mg/dL Total Protein 7.2 (6.5-8.0) g/dL Albumin 4.0 (3.5-5.0) g/dL Lipase 21 (8-78) U/L Urine Color Yellow Urine Appearance Clear Urine pH 7.0 (5.0-9.0) Ur Specific [place] 1.020 (1.005-1.025) Urine Protein Negative (Neg-Trace) mg/dL Urine Glucose (UA) Negative (Negative) mg/dL Urine Ketones Negative (Negative) mg/dL Urine Blood Negative (Negative) Urine Nitrite Negative (Negative) Ur Leukocyte Esterase Negative (Negative) Independent Interpretation I performed an independent interpretation of an: EKG Interpretation: EKG at 12:23 shows sinus rhythm first-degree AV block at 83 beats per minute. No acute findings. Medications Administered Discontinued Medications Generic Name Dose Route Start Last Admin Trade Name Freq PRN Reason Stop Dose Admin Alprazolam 0.25 mg 02/08/24 17:30 02/08/24 17:47 Alprazolam 0.25 Mg Tablet PO 02/08/24 17:31 0.25 mg ONCE ONE Administration Polyethylene Glycol 17 gm 02/08/24 16:17 02/08/24 16:41 Polyethylene Glycol 3350 17 Gm Powd.Pack PO 02/08/24 16:18 17 gm ONCE ONE Administration Discharge Plan Discharge Clinical Impression: Abdominal pain Patient Disposition: Home, Self-Care Additional Instructions: Your testing today is very reassuring. I think you may have some degree of constipation. Please take MiraLax daily for the next several days. Follow up soon with your regular doctor. Return to the emergency room if significantly worse. Prescriptions: No Action citalopram 20 mg tablet 20 mg PO BEDTIME 90 Days Qty: 90 1RF docusate sodium 100 mg capsule 100 mg PO BID PRN (Reason: constipation) 30 Days Qty: 60 1RF pantoprazole 40 mg tablet,delayed release (DR/EC) 40 mg PO QAM Qty: 30 1RF albuterol sulfate 90 mcg/actuation HFA aerosol inhaler 1 inh inhalation QID PRN (Reason: shortness of breath or wheezing) 30 Days Qty: 8.5 0RF doxycycline monohydrate 100 mg capsule 100 mg PO BID 5 Days Qty: 10 0RF phenazopyridine [Pyridium] 200 mg tablet 200 mg PO TID Qty: 6 0RF aspirin 81 mg tablet,delayed release (DR/EC) 81 mg PO QAM Qty: 90 0RF alprazolam [Xanax] 0.25 mg tablet 0.25 mg PO TID PRN (Reason: anxiety) 30 Days Qty: 90 0RF fluticasone propionate 50 mcg/actuation spray,suspension 2 spray intranasal DAILY PRN (Reason: Allergic Symptoms) clopidogrel 75 mg tablet 75 mg PO QAM folic acid 400 mcg Tablet 0.4 mg PO DAILY cholecalciferol (vitamin D3) [Vitamin D3] 50 mcg (2,000 unit) Tablet 50 mcg PO DAILY ondansetron 4 mg tablet,disintegrating 4 mg PO Q6H PRN (Reason: nausea and vomiting) Qty: 14 0RF acetaminophen [Tylenol] 325 mg capsule 325 mg PO Q4H PRN (Reason: pain) Qty: 30 0RF prednisone 20 mg tablet 20 mg PO DAILY 5 Days Qty: 5 0RF polyethylene glycol 3350 [Miralax] 17 gram/dose Powder 17 g PO DAILY PRN (Reason: Constipation) sennosides [Senna Laxative] 8.6 mg tablet 8.6 mg PO BID PRN (Reason: constipation) Qty: 14 0RF polyethylene glycol 3350 [ClearLax] 17 gram/dose powder 17 g PO DAILY Qty: 119 0RF losartan 25 mg tablet 25 mg PO DAILY clonazepam 0.5 mg tablet 0.5 mg PO DAILY 5 Days Qty: 5 0RF Referrals: Nick Gomez PA-C [Primary Care Provider] - (Abdominal pain, frequent ER visits) Interventions: ED Discharge Assessment Last Done: 02/08/24 17:59 Discharge Date/Time: 02/08/24 18:00 Print Language: Pashto
--- NOTE | 2024-02-08 12:03 | ECG_ITS ---
Test Reason : WEAKNESS Blood Pressure : / mmHG Vent. Rate : 086 BPM Atrial Rate : 090 BPM P-R Int : 262 ms QRS Dur : 112 ms QT Int : 384 ms P-R-T Axes : 029 -14 024 degrees QTc Int : 459 ms Sinus rhythm with 1st degree A-V block with occasional Premature ventricular complexes Abnormal ECG When compared with ECG of 30-DEC-2023 13:56, GA interval has increased ST elevation now present in Lateral leads Referred By: Luis Prescott Electronically Signed By:MICHEL CHARLES MD
[2024-02-08 12:09] VITALS: BP 178/91; PULSE 84; RESP 20; TEMP 36.8; O2SAT 96
[2024-02-08 12:13] LABS: MANUAL DIFF FLAG NO
[2024-02-08 12:18] LABS: Basophils Percent Auto 0.9 % (0-2); Eosinophils Absolute Auto 0.1 X10*3/uL (0.0-0.4); Eosinophils Percent Auto 3.2 % (0-4); Hematocrit 31.7 % (37.0-47.0); Hemoglobin 10.5 g/dl (12.0-16.0); Imm Gran Abs Auto 0.01 X10*3/uL (0.00-0.03); Imm Gran Pct Auto 0.3 % (0.0-0.4); Lymphocytes Absolute Auto 0.4 X10*3/uL (1.2-4.9); Lymphocytes Percent Auto 10.9 % (20-40); Mean Corpuscular HGB Conc 33.1 g/dl (31.0-35.0); Mean Corpuscular Volume 90.6 fL (80.0-98.0); Mean Platelet Volume 11.4 fL (9.4-12.3); Monocytes Absolute Auto 0.4 X10*3/uL (0.1-1.2); Monocytes Percent Auto 10.6 % (2-11); Neutrophils Absolute Auto 2.5 x10*3/uL (2.0-8.3); Neutrophils Percent Auto 74.1 % (45-73); Platelet Count 135 X10*3/uL (160-400); Red Cell Distribution Width 13.5 % (11.0-16.0); White Blood Count 3.4 X10*3/uL (4.8-10.8)
--- NOTE | 2024-02-08 12:23 | ECG_ITS ---
Test Reason : weakness Blood Pressure : / mmHG Vent. Rate : 083 BPM Atrial Rate : 083 BPM P-R Int : 244 ms QRS Dur : 088 ms QT Int : 394 ms P-R-T Axes : 054 -14 033 degrees QTc Int : 462 ms Sinus rhythm with 1st degree A-V block Otherwise normal ECG When compared with ECG of 08-FEB-2024 12:12, Premature ventricular complexes are no longer Present ST no longer elevated in Lateral leads Referred By: Luis Prescott Electronically Signed By:MICHEL CHARLES MD
[2024-02-08 12:28] LABS: Alanine Aminotransferase 7 U/L (0-31); Alkaline Phosphatase 123 U/L (39-117); Anion Gap 15 (12-20); Aspartate Amino Transferase 17 U/L (5-31); Bilirubin Direct 0.2 mg/dL (0.0-0.5); Bilirubin Total 0.6 mg/dL (0.0-1.0); Blood Urea Nitrogen 19 mg/dL (9-16); C Reactive Protein < 0.10 mg/dL (< or = 0.50); Calcium 9.7 mg/dL (8.4-10.2); Carbon Dioxide 27 mmol/L (22-29); Chloride 103 mmol/L (96-108); Creatinine Clr Calc Pharmacy 46.9; Estimated Glomerular Filt Rate > 60; Glucose Random 93 mg/dL (60-115); Lipase 21 U/L (8-78); Potassium 4.1 mmol/L (3.3-5.1); Sodium 141 mmol/L (135-145); Total Protein 7.2 g/dL (6.5-8.0)
[2024-02-08 13:30] LABS: Appearance Urine Clear; Color Urine Yellow; Glucose Urine UA Negative (Negative); Leukocyte Esterase Urine Negative (Negative); Nitrite Urine Negative (Negative); Urine Blood Negative (Negative); Urine Ketones Negative (Negative); Urine Protein Negative (Neg-Trace)
--- NOTE | 2024-02-08 13:32 | PC.NURSE ---
Pt reports low abd pain since waking up approx 0700 but states abd discomfort most days but worse today, wretching and dry heaves without vomiting or diarrhea. Constipation. Decreased PO intake and denies fever. +bowel sounds x 4 quads, abd soft and non tender. Skin pwd, speaking full sentences. VSS. Iv established to left ac.
[2024-02-08 15:40] VITALS: BP 162/85; PULSE 88; RESP 18; TEMP 36.7; O2SAT 96
--- NOTE | 2024-02-08 15:43 | PC.NURSE ---
Violeta at bedside from
[2024-02-08] MEDS: polyethylene glycoL 3350 17 GM POWD.PACK PO (16:41)
--- NOTE | 2024-02-08 16:44 | MHC.CM.ED ---
Addendum entered by Yuki Newton 02/08/24 16:54: CM called the kitchen and requested reg tray PANCHO. Miralax ordered. Pt aware of CM conversation with her son. Pt is agreeable to discharge home tonight. Original Note: CM met with patient at the request of Dr. Prescott. Pt is well known to CM. Pt lives with her son. Ambulates independently. Has no home services. Pt tells CM she will start outpatient PT next week. HCP on file. PCP Nick Gomez. Pt is very concerned about her decreasing STM and has various complaints, basically constipation and problems with her Xanax prescription. She also has problems with her phone and her computer. Bella also tells CM that she is very lonely, as her and most of her friends have . CM will speak with provider about ordering something for constipation and a meal. CM spoke with her son, Hi, who admits to his mother's STM worsening. Hi tells CM that she had a heart procedure in August and has been failing somewhat at home since. Hi tells CM that his mother's mapping pilot, Janene Huber has been trying to decrease the amounts of Xanax his mother takes. Hi tells CM he has an appointment tomorrow at 3pm at the [employer] store to work on his mother's telephone issues and that he just bought her a new computer and is working on getting that up and running. Hi or cousin will picking machine operator helper his mother between 5:30 and 6pm. Provider and primary RN aware of above.
[2024-02-08] MEDS: ALPRAZolam 0.25 MG TABLET PO (17:47)
[2024-02-08 17:59] VITALS: BP 162/85; PULSE 88; RESP 18; TEMP 36.7; O2SAT 96
== END 2024-02-08 18:00 | disposition home or self-care (01) ==
PROVIDERS: Physician Assistant Medical; Emergency Provider Emergency Medicine; PCP Physician Assistant
DX: R10.32 Left lower quadrant pain (principal); R94.31 Abnormal electrocardiogram [ECG] [EKG]; R30.0 Dysuria; Z87.891 Personal history of nicotine dependence; Z79.899 Other long term (current) drug therapy
CPT/HCPCS: 36415; 80048; 80076; 81003; 83690; 83735; 85025; 86140; 93005; 99283; 99285

== ENCOUNTER → 2024-02-08 12:03 | Outpatient (BNV) | payer MEDICARE, OTHER, SELFPAY | PROVIDERS: Emergency Provider Emergency Medicine; PCP Physician Assistant; Visit Provider Internal Medicine Cardiovascular Disease | DX: I44.0 Atrioventricular block, first degree (principal); I49.3 Ventricular premature depolarization | CPT/HCPCS: 93010 ==

== ENCOUNTER 2024-02-14 11:37 | Outpatient (REF) | payer MEDICARE, OTHER, SELFPAY ==
[2024-02-14 13:24] LABS: TSH reflex Free T4 0.88 uIU/mL (0.32-4.0)
== END 2024-02-14 11:38 | disposition home or self-care (01) ==
LOC: HO.LAB 11:37
PROVIDERS: PCP Physician Assistant; Visit Provider Internal Medicine Cardiovascular Disease
DX: R00.2 Palpitations (principal); F41.9 Anxiety disorder, unspecified; Z95.2 Presence of prosthetic heart valve
CPT/HCPCS: 36415; 84443; 99212

== ENCOUNTER 2024-02-14 11:37 | Outpatient (AMB) | payer MEDICARE, OTHER, SELFPAY ==
--- NOTE | 2024-02-14 11:37 | MHC.OFFVIS ---
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 Required: No Accompanied by: Self / Same As Patient Allergies buspirone Allergy (Intermediate, Verified 02/08/24 11:25) Rash Sulfa (Sulfonamide Antibiotics) Allergy (Intermediate, Verified 02/08/24 11:25) RASH cefuroxime Allergy (Unknown, Verified 02/08/24 11:25) Unknown garlic [GARLIC] Allergy (Unknown, Verified 02/08/24 11:25) PER H&P metronidazole [From FLAGYL] Allergy (Unknown, Verified 02/08/24 11:25) OCULAR MIGRAINES penicillamine Allergy (Unknown, Verified 02/08/24 11:25) Unknown ciprofloxacin Adverse Reaction (Intermediate, Verified 02/08/24 11:25) neuropathic pain lisinopril Adverse Reaction (Intermediate, Verified 02/08/24 11:25) Cough nitrofurantoin Adverse Reaction (Mild, Verified 02/08/24 11:25) GI side effects cefuroxime Allergy (Intermediate, Uncoded 02/08/24 11:25) wheezy cough/itch flagyl Allergy (Unknown, Uncoded 02/08/24 11:25) Unknown From KEFLEX Allergy (Unknown, Uncoded 02/08/24 11:25) RASH Metoprolol Tartrate Allergy (Unknown, Uncoded 02/08/24 11:25) Unknown Sulfacet-R Allergy (Unknown, Uncoded 02/08/24 11:25) Unknown Medication List - Last Reconciled 02/14/24 by Guillaume Callahan MD acetaminophen (Tylenol) 325 mg PO Q4H PRN albuterol sulfate 90 mcg/actuation 1 inh inhalation QID PRN 30 days alprazolam (Xanax) 0.25 mg PO TID PRN 30 days aspirin 81 mg PO QAM cholecalciferol (vitamin D3) (Vitamin D3) 50 mcg PO DAILY citalopram 20 mg PO BEDTIME 90 days clonazepam 0.5 mg PO DAILY 5 days clopidogrel 75 mg PO QAM docusate sodium 100 mg PO BID PRN 30 days fluticasone propionate 50 mcg/actuation 2 sprays intranasal DAILY PRN folic acid 0.4 mg PO DAILY losartan 25 mg PO DAILY ondansetron 4 mg PO Q6H PRN pantoprazole 40 mg PO QAM polyethylene glycol 3350 (Miralax) 17 grams PO DAILY PRN polyethylene glycol 3350 (ClearLax) 17 grams PO DAILY prednisone 20 mg PO DAILY 5 days sennosides (Senna Laxative) 8.6 mg PO BID PRN HPI Comments Details: 83-year-old female who is here for follow-up. She is background of severe symptomatic aortic valve stenosis and was referred for transcatheter aortic valve replacement which she underwent recently at [facility]. Unfortunately her clinical course was complicated by CVA. 10/11/2023: She returns for follow-up today. She had echocardiography performed on September 25 2023 showing normal left ventricular function with ejection fraction 68%. Normal right ventricular size and function. Bioprosthetic aortic valve which was functioning normally. No paravalvular leak noted. She is complaining of left-sided lower abdominal pain and constipation. She said she went to the emergency department a few times over the last week or so. On October 07 she was diagnosed with diverticulitis and was prescribed amoxicillin clavulanate but it appears she did not fill the script till last night and took the 1st dose last evening and 2nd dose this morning. She has significant pain on the left side of abdomen and clearly has some peritoneal sinus to as she is getting pain with movement. She also has nausea and poor appetite. She is little more forgetful. 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 02/14/24: She is here for f/u. She was sent to ER on last visit for divertilculitis. She has recovered from that. She is complaining about nervousness and anxiety. She has been on xanax for 40 years. She is saying her psychiatrist is cutting back on it. she has been more forgetful lately. She has lost weight approximately 10 pounds over the last 2 months. [facility] Medical History (Updated 02/09/24 @ 00:01 by Background Daemon) Cough Heart palpitations Constipation LLQ abdominal pain Anxiety Breast cancer screening Breast pain, left Elevated vitamin B12 level Neck muscle spasm Strain of neck muscle Low back pain Pubic ramus fracture Sore throat Skin tear of upper arm without complication Head injury, acute, without loss of consciousness Fall Dizziness Medication noncompliance due to cognitive impairment RLQ abdominal pain Sinusitis Flu syndrome Precordial chest pain Atypical chest pain Cold intolerance Former smoker Pulmonary nodule Abnormal lung sounds Fever Bilateral calf pain Nausea Left lower quadrant abdominal pain Dysuria Fatigue Lower extremity weakness HTN (hypertension) Aortic stenosis Obstipation Dark stools Lower abdominal pain Gastroenteritis Neck pain on right side URI (upper respiratory infection) Back pain Chest pain Rhinitis Elevated BP without diagnosis of hypertension Non-rheumatic aortic stenosis Diverticulitis GERD (gastroesophageal reflux disease) Cat scratch Cat bite Epigastric discomfort Diarrhea Nausea Viral syndrome GERD (gastroesophageal reflux disease) Neuropathy Arthritis GERD (gastroesophageal reflux disease) HTN (hypertension) Irritable bowel Heart murmur Surgical History S/P TAVR (transcatheter aortic valve replacement) Hx of esophagogastroduodenoscopy Hx of colonoscopy History of tonsillectomy History of appendectomy Family History Father No problems noted. Mother No problems noted. Social History Household Members: Children Housing: House Are you a primary career placement specialist to a significant other at home: No Do you presently have visiting nurse or other home services: No Alcohol intake: former Patient Tobacco Use Status: Former Tobacco user Tobacco use type: Cigarette e-Cigarette/Vaping Use: Never Used Second Hand Smoke Exposure: No Advance Directives Date on File: 09/21/23 service: No Current occupational status: retired Cognitive needs: No Hearing needs: No Vision needs: Yes (glasses) Review of Systems Const Denies chills, Denies fatigue, Denies fever(s), Denies frequent falls, Denies weakness, Denies weight gain and Denies weight loss ENT Denies dizziness Card Denies chest pain, Denies leg edema, Denies lightheadedness, Denies palpitations, Denies dyspnea and Denies dyspnea on exertion Resp Denies cough, Denies dyspnea and Denies dyspnea on exertion GI Denies hematochezia Musc Denies abnormal gait, Denies muscle weakness, Denies numbness, Denies radiating pain into limb and Denies tingling Neuro Denies abnormal gait, Denies dizziness, Denies frequent falls, Denies numbness, Denies tingling and Denies weakness Endo Denies fatigue and Denies palpitations Physical Exam Vital Signs: Last Vital Signs Pulse 91 02/14/24 11:38 BP 130/60 02/14/24 11:38 Pulse Ox 98 02/14/24 11:38 BMI result Body Mass Index 24.9 GENERAL APPEARANCE: In no acute distress. NECK: no carotid bruit, no jugular venous distention. SKIN: no suspicious lesions, warm and dry. HEART: Normal S1 plus S2, regular rate and rhythm. systolic murmur aortic area and apex. LUNGS: clear to auscultation bilaterally. ABDOMEN: soft. EXTREMITIES: no edema. PERIPHERAL PULSES: equal. NEUROLOGIC: No gross deficits, AAO X 3 Assessment & Plan Assessment & Plan (1) Heart palpitations: Code(s): R00.2 - Palpitations Category: Medical (2) S/P TAVR (transcatheter aortic valve replacement): Code(s): Z95.2 - Presence of prosthetic heart valve Category: Medical Plan Pleasant 83 year old female here for f/u She is s/p TAVR I will arrange echo to assess for post TAVR gradient. BP is well controlled. She has anxiety and has been losing weight. No recent TSH-will check TSH. f/u in 4-6 months. Orders: Orders TSH reflex Free T4 Today F41.9 - Anxiety disorder, unspecified CA echo transthoracic complete Today Z95.2 - Presence of prosthetic heart valve Coding Level of Care Code Est Pt Level 4 (11522) Diagnoses Heart palpitations R00.2 S/P TAVR (transcatheter aortic valve replacement) Z95.2
[2024-02-14 11:38] VITALS: BP 130/60; PULSE 91; O2SAT 98; BMI 24.9
== END 2024-02-14 12:04 | disposition home or self-care (01) ==
PROVIDERS: PCP Physician Assistant; Visit Provider Internal Medicine Cardiovascular Disease
DX: R00.2 Palpitations (principal); Z95.2 Presence of prosthetic heart valve
CPT/HCPCS: 99214

== ENCOUNTER 2024-02-15 14:34 | Emergency (ER) | payer MEDICARE, OTHER, SELFPAY ==
[2024-02-15 15:01] VITALS: BP 119/53; PULSE 89; RESP 18; TEMP 36.5; O2SAT 96; BMI 24.7
--- NOTE | 2024-02-15 15:02 | ED.GENADULT ---
HPI - General Adult General Chief complaint: General Medical Stated complaint: inserted medication in the wrong area Time Seen by Provider: 02/15/24 18:52 Source: patient Mode of arrival: ambulatory History of Present Illness ED Provider: Hima TRIPATHI narrative: 83-year-old female with history of anxiety presents with vaginal irritation. Patient states she mistakenly inserted a Fleet suppository in her vagina this morning. Patient now feels irritated. Related Data Home Medications ?Medication ?Instructions ?Recorded ?Confirmed polyethylene glycol 3350 17 17 g PO DAILY PRN Constipation 10/11/23 02/14/24 gram/dose oral powder (Miralax) losartan 25 mg tablet 25 mg PO DAILY 11/02/23 02/14/24 cholecalciferol (vitamin D3) 50 50 mcg PO DAILY 11/23/23 02/14/24 mcg (2,000 unit) tablet (Vitamin D3) clopidogrel 75 mg tablet 75 mg PO QAM 11/23/23 02/14/24 fluticasone propionate 50 2 spray intranasal DAILY PRN 11/23/23 02/14/24 mcg/actuation nasal Allergic Symptoms spray,suspension folic acid 400 mcg tablet 0.4 mg PO DAILY 11/23/23 02/14/24 Previous Rx's ?Medication ?Instructions ?Recorded citalopram 20 mg tablet 20 mg PO BEDTIME 90 days #90 tabs 10/23/23 docusate sodium 100 mg capsule 100 mg PO BID PRN constipation 30 11/08/23 days #60 caps acetaminophen 325 mg capsule 325 mg PO Q4H PRN pain #30 caps 12/17/23 (Tylenol) ondansetron 4 mg disintegrating 4 mg PO Q6H PRN nausea and 12/17/23 tablet vomiting #14 tabs pantoprazole 40 mg tablet,delayed 40 mg PO QAM #30 tabs 12/17/23 release polyethylene glycol 3350 17 17 g PO DAILY #119 grams 01/04/24 gram/dose oral powder (ClearLax) sennosides 8.6 mg tablet (Senna 8.6 mg PO BID PRN constipation #14 01/04/24 Laxative) tabs albuterol sulfate 90 mcg/actuation 1 inh inhalation QID PRN shortness 01/13/24 aerosol inhaler of breath or wheezing 30 days #8.5 grams clonazepam 0.5 mg tablet 0.5 mg PO DAILY 5 days #5 tabs 01/16/24 aspirin 81 mg tablet,delayed 81 mg PO QAM #90 tabs 02/05/24 release prednisone 20 mg tablet 20 mg PO DAILY 5 days #5 tabs 02/06/24 alprazolam 0.25 mg tablet (Xanax) 0.25 mg PO TID PRN anxiety 30 days 02/07/24 #90 tabs Allergies Allergy/AdvReac Type Severity Reaction Status Date / Time buspirone Allergy Intermediate Rash Verified 02/15/24 15:09 Sulfa (Sulfonamide Allergy Intermediate RASH Verified 02/15/24 15:09 Antibiotics) cefuroxime Allergy Unknown Unknown Verified 02/15/24 15:09 garlic [GARLIC] Allergy Unknown PER H&P Verified 02/15/24 15:09 metronidazole [From FLAGYL] Allergy Unknown OCULAR Verified 02/15/24 15:09 MIGRAINES penicillamine Allergy Unknown Unknown Verified 02/15/24 15:09 ciprofloxacin AdvReac Intermediate neuropathic Verified 02/15/24 15:09 pain lisinopril AdvReac Intermediate Cough Verified 02/15/24 15:09 nitrofurantoin AdvReac Mild GI side Verified 02/15/24 15:09 effects cefuroxime Allergy Intermediate wheezy Uncoded 02/08/24 11:25 cough/itch flagyl Allergy Unknown Unknown Uncoded 02/08/24 11:25 From KEFLEX Allergy Unknown RASH Uncoded 02/08/24 11:25 Metoprolol Tartrate Allergy Unknown Unknown Uncoded 02/08/24 11:25 Sulfacet-R Allergy Unknown Unknown Uncoded 02/08/24 11:25 Review of Systems Review of Systems: Yes all other systems are reviewed and are negative Constitutional: Constitutional: Denies fever(s) Gastrointestinal: Gastrointestinal: Denies abdominal pain Genitourinary: Genitourinary: Denies genital pruritis, Denies vaginal discharge and Reports vaginal dryness PMF Past Medical History Attestation statement: The following information was validated with the patient. Medical History (Updated 02/15/24 @ 20:16 by ROMAINE Dalal) Cough Heart palpitations Constipation LLQ abdominal pain Anxiety Breast cancer screening Breast pain, left Elevated vitamin B12 level Neck muscle spasm Strain of neck muscle Low back pain Pubic ramus fracture Sore throat Skin tear of upper arm without complication Head injury, acute, without loss of consciousness Fall Dizziness Medication noncompliance due to cognitive impairment RLQ abdominal pain Sinusitis Flu syndrome Precordial chest pain Atypical chest pain Cold intolerance Former smoker Pulmonary nodule Abnormal lung sounds Fever Bilateral calf pain Nausea Left lower quadrant abdominal pain Dysuria Fatigue Lower extremity weakness HTN (hypertension) Aortic stenosis Obstipation Dark stools Lower abdominal pain Gastroenteritis Neck pain on right side URI (upper respiratory infection) Back pain Chest pain Rhinitis Elevated BP without diagnosis of hypertension Non-rheumatic aortic stenosis Diverticulitis GERD (gastroesophageal reflux disease) Cat scratch Cat bite Epigastric discomfort Diarrhea Nausea Viral syndrome GERD (gastroesophageal reflux disease) Neuropathy Arthritis GERD (gastroesophageal reflux disease) HTN (hypertension) Irritable bowel Heart murmur Surgical History S/P TAVR (transcatheter aortic valve replacement) Hx of esophagogastroduodenoscopy Hx of colonoscopy History of tonsillectomy History of appendectomy Family History Family History Father No problems noted. Mother No problems noted. Social History Social History Household Members: Children Housing: House Are you a primary home health care worker to a significant other at home: No Do you presently have visiting nurse or other home services: No Alcohol intake: former Patient Tobacco Use Status: Former Tobacco user Tobacco use type: Cigarette e-Cigarette/Vaping Use: Never Used Second Hand Smoke Exposure: No Advance Directives: Yes Advance Directives on File: Yes Advance Directives Date on File: 09/21/23 Do you have a plan to hurt others: No Plan service: No Current occupational status: retired Cognitive needs: No Hearing needs: No Vision needs: Yes (glasses) Physical Exam ED Vital Signs: Vital Signs - 24 hr 02/15/24 15:01 02/15/24 19:09 Temperature 97.7 F 98.2 F Pulse Rate 89 96 Respiratory Rate 18 Blood Pressure 119/53 L 118/68 Pulse Oximetry 96 98 Oxygen Delivery Method Room Air Room Air BMI result Body Mass Index 24.7 Const Other: Awake well in appearance Resp Other: Nonlabored respirations Cardio Other: Normal peripheral perfusion GI Other: Abdomen is soft, nondistended nontender no guarding Other: No lesions noted over external genitalia, her vaginal mucosa is dry, there is no erythema no discharge, no bleeding Skin Other: No rash Neuro Other: Alert and oriented x3 Psych Other: Calm cooperative Course Course Course Narrative: This is an RME: Additional HPI, ROS, PE not included below will be deferred to primary provider. RME assessment and note performed by: Marge Causey PA-C This is a [id number] with a hx of memory impairment,anxiety, depression, frequent falls (recently discharged from [facility]), hypertension, aortic stenosis, embolic stroke, diverticulitis, GERD, hypertension, irritable bowel disease presents to the emergency department with complaints of vaginal burning since this AM. she accidentally inserted fleet suppository in her vagina instead of rectum. Reported some slight blood. Plan: Physical examination needed Medical Decision Making Medical Decision Making MDM Narrative: 83-year-old female with history of anxiety presents with vaginal irritation. Patient states she mistakenly inserted a Fleet suppository in her vagina this morning. Patient now feels irritated. No relevant chronic issues History: Per patient I have considered the following differential diagnoses: Vaginitis, vaginal irritation, vaginal canal trauma Plan: The patient does not need imaging she does not need labs. Her exam was unremarkable. I explained to her at length that it will be too soon for her to develop any form of a vaginitis. Right now she has some irritation that is subjective, I advised that she use an [id number] lubricant such as KY jelly. She can follow up with her primary care provider Discharge Plan Discharge Clinical Impression: Acute vaginitis Patient Disposition: Home, Self-Care Additional Instructions: You will likely experience vaginal canal dryness, you can use an [id number] products such as KY jelly. This will help lubricate your vaginal canal. Given the uterus inserted the suppository anterior vagina this morning, it would be too soon for you develop any form of an infection. You will likely not develop an infection. Follow-up with your primary care provider for a recheck in a week. Prescriptions: No Action citalopram 20 mg tablet 20 mg PO BEDTIME 90 Days Qty: 90 1RF docusate sodium 100 mg capsule 100 mg PO BID PRN (Reason: constipation) 30 Days Qty: 60 1RF pantoprazole 40 mg tablet,delayed release (/EC) 40 mg PO QAM Qty: 30 1RF albuterol sulfate 90 mcg/actuation HFA aerosol inhaler 1 inh inhalation QID PRN (Reason: shortness of breath or wheezing) 30 Days Qty: 8.5 0RF aspirin 81 mg tablet,delayed release (DR/EC) 81 mg PO QAM Qty: 90 0RF alprazolam [Xanax] 0.25 mg tablet 0.25 mg PO TID PRN (Reason: anxiety) 30 Days Qty: 90 0RF fluticasone propionate 50 mcg/actuation spray,suspension 2 spray intranasal DAILY PRN (Reason: Allergic Symptoms) clopidogrel 75 mg tablet 75 mg PO QAM folic acid 400 mcg Tablet 0.4 mg PO DAILY cholecalciferol (vitamin D3) [Vitamin D3] 50 mcg (2,000 unit) Tablet 50 mcg PO DAILY ondansetron 4 mg tablet,disintegrating 4 mg PO Q6H PRN (Reason: nausea and vomiting) Qty: 14 0RF acetaminophen [Tylenol] 325 mg capsule 325 mg PO Q4H PRN (Reason: pain) Qty: 30 0RF prednisone 20 mg tablet 20 mg PO DAILY 5 Days Qty: 5 0RF polyethylene glycol 3350 [Miralax] 17 gram/dose Powder 17 g PO DAILY PRN (Reason: Constipation) sennosides [Senna Laxative] 8.6 mg tablet 8.6 mg PO BID PRN (Reason: constipation) Qty: 14 0RF polyethylene glycol 3350 [ClearLax] 17 gram/dose powder 17 g PO DAILY Qty: 119 0RF losartan 25 mg tablet 25 mg PO DAILY clonazepam 0.5 mg tablet 0.5 mg PO DAILY 5 Days Qty: 5 0RF Print Language: Maori
[2024-02-15 19:09] VITALS: BP 118/68; PULSE 96; TEMP 36.8; O2SAT 98
[2024-02-15 20:45] VITALS: BP 120/64; PULSE 92; RESP 16; TEMP 37.1; O2SAT 98
== END 2024-02-15 20:45 | disposition home or self-care (01) ==
PROVIDERS: Emergency Provider Internal Medicine; PCP Physician Assistant
DX: N76.0 Acute vaginitis (principal); I10 Essential (primary) hypertension
CPT/HCPCS: 99283

== ENCOUNTER 2024-02-20 14:02 | Outpatient (REF) | payer MEDICARE, OTHER, SELFPAY ==
[2024-02-20 15:03] LABS: Appearance Urine Cloudy; Color Urine Yellow; Glucose Urine UA Negative (Negative); Leukocyte Esterase Urine Large (3+) (Negative); Nitrite Urine Negative (Negative); Specific Gravity - Urine 1.025 (1.005-1.025); UMIC TRIGGER UACC YES; Urine Blood Trace (Negative); Urine Ketones Trace mg/dL (Negative); Urine Protein 30 (1+) mg/dL (Neg-Trace)
[2024-02-20 15:13] LABS: Bacteria Urine 3+ (None Seen); RBC Urine 0-2 /HPF (0-2); Squamous Epithelial Cell Urine 0-2 /HPF (0-2); UACC Culture Trigger YES; WBC Urine >50 /HPF (0-5)
[2024-02-23 15:58] LABS: Aspergillus Antigen Not Detected (Not Detected); Index Value 0.05 (<0.50)
[2024-02-27 04:29] LABS: Class Alternaria alternata 0; Class Aspergillus fumigatus 0; Class Bermuda Grass 0; Class Birch 0; Class Cat Dander 0; Class Cladosporium herbarum 0; Class Cockroach 0; Class Common Ragweed 0; Class Cottonwood 0; Class Derm. pterony 0; Class Dermatophagoides farinae 0; Class Dog Dander 0; Class Elm 0; Class Maple Box Elder 0; Class Mountain Cedar 0; Class Mouse Urine Protein 0; Class Mugwort 0; Class Oak 0; Class Penicillium crysogenum 0; Class Rough Pigweed 0; Class Sheep Sorrel 0; Class Sycamore 0; Class Timothy Grass 0; Class Walnut Tree 0; Class White Ash 0; Class White Mulberry 0; D001 IgE D pteronyssinus <0.10 kU/L; D002 - IgE D farinae <0.10 kU/L; E001 - IgE Cat Dander <0.10 kU/L; E005 - IgE Dog Dander <0.10 kU/L; E072-IgE Mouse Urine <0.10 kU/L; G002 IgE Bermuda Grass <0.10 kU/L; G006 - IgE Timothy Grass <0.10 kU/L; I006-IgE Cockroach, German <0.10 kU/L; Immunoglobulin E 260 kU/L (<OR=114); M001 IgE Penicillium chrysogen <0.10 kU/L; M002 - IgE Cladosporium herbar <0.10 kU/L; M003 - IgE Aspergillus fumigat <0.10 kU/L; M006 - IgE Alternaria alternat <0.10 kU/L; T001 IgE Maple/Box Elder <0.10 kU/L; T003 IgE Common Silver Birch <0.10 kU/L; T006 - IgE Cedar, Mountain <0.10 kU/L; T007 - IgE Oak, White <0.10 kU/L; T008 IgE Elm, American <0.10 kU/L; T010 - IgE Walnut <0.10 kU/L; T011 - IgE Maple Leaf Sycamore <0.10 kU/L; T014 - IgE Cottonwood <0.10 kU/L; T015 - IgE Ash, White <0.10 kU/L; T070 - IgE White Mulberry <0.10 kU/L; W001 - IgE Ragweed, Short <0.10 kU/L; W006 - IgE Mugwort <0.10 kU/L; W014 IgE Pigweed, Common <0.10 kU/L; W018 IgE Sheep Sorrel <0.10 kU/L
== END 2024-02-20 14:03 | disposition home or self-care (01) ==
LOC: HO.LAB 14:02
PROVIDERS: PCP Physician Assistant; Visit Provider Physician Assistant
DX: R05.9 Cough, unspecified (principal); R82.90 Unspecified abnormal findings in urine
CPT/HCPCS: 36415; 81001; 81003; 82785; 86003; 87086; 87088; 87186; 87305

== ENCOUNTER 2024-02-26 15:48 | Outpatient (REF) | payer MEDICARE, OTHER, SELFPAY ==
--- NOTE | ~2024-02-26 | XR_ITS ---
EXAMINATION: XR HIP, LEFT CLINICAL INFORMATION: Left hip pain COMPARISON: CT 01/04/2024, radiographs 05/24/2023 TECHNIQUE: Two views of the left hip. FINDINGS: Suspect chronic healed fracture of the left pubic bone. No acute fracture or malalignment. Mild bilateral hip osteoarthritis appears symmetric. XR/XR hip LT w PEL1V IMPRESSION: Mild bilateral hip osteoarthritis. No acute fracture. Chronic, healed fracture of the left pubic bone.
== END 2024-02-26 15:49 | disposition home or self-care (01) ==
LOC: HO.HMGCX 15:48
PROVIDERS: PCP Physician Assistant; Visit Provider Physician Assistant
DX: M25.552 Pain in left hip (principal)
CPT/HCPCS: 73502

== ENCOUNTER 2024-03-04 14:36 | Outpatient (REF) | payer MEDICARE, OTHER, SELFPAY ==
--- NOTE | ~2024-03-04 | XR_ITS ---
EXAMINATION: XR BILATERAL HIPS WITH AP PELVIS CLINICAL INFORMATION: History of falling COMPARISON: CT abdomen pelvis 11/23/2023 TECHNIQUE: AP view of the pelvis and 2 additional views of each hip were obtained. FINDINGS: No acute fracture. There appears to be old healed fracture of the superior pubic ramus on the left along with possibly the pubic symphysis. Marked degenerative change seen at the pubic symphysis. Appearances are similar to the 11/23/2023 CT scan. Some very mild degenerative changes are seen in both hips. Joint spaces are well maintained. Alignment is anatomic. Sacroiliac joints normal. No abnormal soft tissue calcifications. XR/XR hip BI w PEL1V IMPRESSION: No acute fracture. Old healed fractures of the left superior pubic ramus and pubic symphysis.
== END 2024-03-04 14:37 | disposition home or self-care (01) ==
LOC: HO.HMGCX 14:36
PROVIDERS: PCP Physician Assistant; Visit Provider Physician Assistant
DX: M25.551 Pain in right hip (principal); M25.552 Pain in left hip; Z91.81 History of falling
CPT/HCPCS: 73521

== ENCOUNTER 2024-03-12 14:57 | Outpatient (REF) | payer MEDICARE, OTHER, SELFPAY ==
[2024-03-12 17:18] LABS: Appearance Urine Clear; Color Urine Yellow; Glucose Urine UA Negative (Negative); Leukocyte Esterase Urine Negative (Negative); Nitrite Urine Negative (Negative); PH 5.5 (5.0-9.0); Specific Gravity - Urine 1.025 (1.005-1.025); Urine Blood Negative (Negative); Urine Ketones Trace mg/dL (Negative); Urine Protein Negative (Neg-Trace)
== END 2024-03-12 14:58 | disposition home or self-care (01) ==
LOC: HO.LAB 14:57
PROVIDERS: PCP Physician Assistant; Visit Provider Internal Medicine
DX: R30.0 Dysuria (principal); N39.0 Urinary tract infection, site not specified
CPT/HCPCS: 81003

== ENCOUNTER 2024-03-15 12:39 | Emergency (ER) | payer MEDICARE, OTHER, SELFPAY ==
[2024-03-15 12:47] VITALS: BP 125/88; PULSE 88; RESP 18; TEMP 36.6; O2SAT 96; BMI 24.9
--- NOTE | 2024-03-15 12:47 | ED.GENADULT ---
HPI - General Adult General Chief complaint: Abdominal Pain Stated complaint: general medical Time Seen by Provider: 03/15/24 14:39 History of Present Illness HPI narrative: LWCT Related Data Home Medications ?Medication ?Instructions ?Recorded ?Confirmed polyethylene glycol 3350 17 17 g PO DAILY PRN Constipation 10/11/23 02/14/24 gram/dose oral powder (Miralax) cholecalciferol (vitamin D3) 50 50 mcg PO DAILY 11/23/23 02/14/24 mcg (2,000 unit) tablet (Vitamin D3) clopidogrel 75 mg tablet 75 mg PO QAM 11/23/23 02/14/24 fluticasone propionate 50 2 spray intranasal DAILY PRN 11/23/23 02/14/24 mcg/actuation nasal Allergic Symptoms spray,suspension folic acid 400 mcg tablet 0.4 mg PO DAILY 11/23/23 02/14/24 Previous Rx's ?Medication ?Instructions ?Recorded citalopram 20 mg tablet 20 mg PO BEDTIME 90 days #90 tabs 10/23/23 docusate sodium 100 mg capsule 100 mg PO BID PRN constipation 30 11/08/23 days #60 caps acetaminophen 325 mg capsule 325 mg PO Q4H PRN pain #30 caps 12/17/23 (Tylenol) polyethylene glycol 3350 17 17 g PO DAILY #119 grams 01/04/24 gram/dose oral powder (ClearLax) sennosides 8.6 mg tablet (Senna 8.6 mg PO BID PRN constipation #14 01/04/24 Laxative) tabs aspirin 81 mg tablet,delayed 81 mg PO QAM #90 tabs 02/05/24 release prednisone 20 mg tablet 20 mg PO DAILY 5 days #5 tabs 02/06/24 alprazolam 0.25 mg tablet (Xanax) 0.25 mg PO TID PRN anxiety 30 days 02/07/24 #90 tabs pantoprazole 40 mg tablet,delayed 40 mg PO QAM #30 tabs 02/18/24 release losartan 25 mg tablet 25 mg PO DAILY 90 days #90 tabs 02/28/24 ondansetron 4 mg disintegrating 4 mg PO Q6H PRN nausea and 02/28/24 tablet vomiting #14 tabs albuterol sulfate 90 mcg/actuation 1 inh inhalation QID PRN shortness 03/01/24 aerosol inhaler of breath or wheezing 30 days #8.5 grams gabapentin 100 mg capsule 100 mg PO BID 15 days #30 caps 03/05/24 nitrofurantoin 100 mg PO Q12H 5 days #10 caps 03/10/24 monohydrate/macrocrystals 100 mg capsule (Macrobid) phenazopyridine 200 mg tablet 200 mg PO TID PRN pain 10 days #14 03/13/24 (Pyridium) tabs oxybutynin chloride 5 mg tablet 5 mg PO BEDTIME PRN bladder spasms 03/14/24 7 days #7 tabs Allergies Allergy/AdvReac Type Severity Reaction Status Date / Time buspirone Allergy Intermediate Rash Verified 03/15/24 12:49 Sulfa (Sulfonamide Allergy Intermediate RASH Verified 03/15/24 12:49 Antibiotics) cefuroxime Allergy Unknown Unknown Verified 03/15/24 12:49 garlic [GARLIC] Allergy Unknown PER H&P Verified 03/15/24 12:49 metronidazole [From FLAGYL] Allergy Unknown OCULAR Verified 03/15/24 12:49 MIGRAINES penicillamine Allergy Unknown Unknown Verified 03/15/24 12:49 ciprofloxacin AdvReac Intermediate neuropathic Verified 03/15/24 12:49 pain lisinopril AdvReac Intermediate Cough Verified 03/15/24 12:49 nitrofurantoin AdvReac Mild GI side Verified 03/15/24 12:49 effects cefuroxime Allergy Intermediate wheezy Uncoded 02/08/24 11:25 cough/itch flagyl Allergy Unknown Unknown Uncoded 02/08/24 11:25 From KEFLEX Allergy Unknown RASH Uncoded 02/08/24 11:25 Metoprolol Tartrate Allergy Unknown Unknown Uncoded 02/08/24 11:25 Sulfacet-R Allergy Unknown Unknown Uncoded 02/08/24 11:25 [facility] Past Medical History Medical History (Updated 03/15/24 @ 16:07 by Thao Nation CNP) HTN (hypertension) Cough Heart palpitations Constipation LLQ abdominal pain Anxiety Breast cancer screening Breast pain, left Elevated vitamin B12 level Neck muscle spasm Strain of neck muscle Low back pain Pubic ramus fracture Sore throat Skin tear of upper arm without complication Head injury, acute, without loss of consciousness Fall Dizziness Medication noncompliance due to cognitive impairment RLQ abdominal pain Sinusitis Flu syndrome Precordial chest pain Atypical chest pain Cold intolerance Former smoker Pulmonary nodule Abnormal lung sounds Fever Bilateral calf pain Nausea Left lower quadrant abdominal pain Dysuria Fatigue Lower extremity weakness Aortic stenosis Obstipation Dark stools Lower abdominal pain Gastroenteritis Neck pain on right side URI (upper respiratory infection) Back pain Chest pain Rhinitis Elevated BP without diagnosis of hypertension Non-rheumatic aortic stenosis Diverticulitis GERD (gastroesophageal reflux disease) Cat scratch Cat bite Epigastric discomfort Diarrhea Nausea Viral syndrome GERD (gastroesophageal reflux disease) Neuropathy Arthritis GERD (gastroesophageal reflux disease) HTN (hypertension) Irritable bowel Heart murmur Surgical History S/P TAVR (transcatheter aortic valve replacement) Hx of esophagogastroduodenoscopy Hx of colonoscopy History of tonsillectomy History of appendectomy Family History Family History Father No problems noted. Mother No problems noted. Social History Social History Household Members: Children Housing: House Are you a primary childcare center director to a significant other at home: No Do you presently have visiting nurse or other home services: No Alcohol intake: former Patient Tobacco Use Status: Former Tobacco user Tobacco use type: Cigarette e-Cigarette/Vaping Use: Never Used Second Hand Smoke Exposure: No Advance Directives: Yes Advance Directives on File: Yes Advance Directives Date on File: 09/21/23 Do you have a plan to hurt others: No Plan service: No Current occupational status: retired Cognitive needs: No Hearing needs: No Vision needs: Yes (glasses) Physical Exam ED Vital Signs: Vital Signs - 24 hr 03/15/24 12:47 Temperature 97.9 F Pulse Rate 88 Respiratory Rate 18 Blood Pressure 125/88 Pulse Oximetry 96 Oxygen Delivery Method Room Air BMI result Body Mass Index 24.9 Course Course Course Narrative: This is an RME performed by Alicia Nation CNP: Additional HPI, ROS, PE not included below will be deferred to primary provider. Patient is an 83-year-old female who presents to the emergency department for evaluation of abdominal pain, headache, fatigue, I don't know what to do anymore I'm totally worn out , falls. Plan: labs, urinalysis Medical Decision Making Lab Data 03/15/24 13:10 03/15/24 13:10 Labs: Lab Results 03/15/24 Range/Units 13:10 WBC 2.8 L (4.8-10.8) X10*3/uL RBC 3.43 L (4.20-5.50) X10*6/uL Hgb 10.3 L (12.0-16.0) g/dl Hct 31.4 L (37.0-47.0) % MCV 91.5 (80.0-98.0) fL MCH 30.0 (27.0-33.0) pg MCHC 32.8 (31.0-35.0) g/dl RDW 13.9 (11.0-16.0) % Plt Count 143 L (160-400) X10*3/uL MPV 10.9 (9.4-12.3) fL Immature Gran % (Auto) 0.4 (0.0-0.4) % Neut % (Auto) 71.3 (45-73) % Lymph % (Auto) 14.5 L (20-40) % Kimble % (Auto) 8.0 (2-11) % Eos % (Auto) 4.7 H (0-4) % Baso % (Auto) 1.1 (0-2) % Lymph # (Auto) 0.4 L (1.2-4.9) X10*3/uL Kimble # (Auto) 0.2 (0.1-1.2) X10*3/uL Eos # (Auto) 0.1 (0.0-0.4) X10*3/uL Baso # (Auto) 0.0 (0.0-0.2) X10*3/uL Abs Immat Gran (auto) 0.01 (0.00-0.03) X10*3/uL Absolute Neuts (auto) 2.0 (2.0-8.3) x10*3/uL Absolute Nucleated RBC 0.000 (0.0-0.012) X10*3/uL Nucleated RBC % (auto) 0.0 (0.0-0.2) /100WBC Sodium 140 (135-145) mmol/L Potassium 4.1 (3.3-5.1) mmol/L Chloride 100 (96-108) mmol/L Carbon Dioxide 30 H (22-29) mmol/L Anion Gap 14 (12-20) BUN 16 (9-16) mg/dL Creatinine 0.77 (0.5-1.4) mg/dL Estim Creat Clear Calc 51.8 Estimated GFR > 60 Random Glucose 96 (60-115) mg/dL Calcium 9.5 (8.4-10.2) mg/dL Magnesium 2.0 (1.6-2.6) mg/dL Total Bilirubin 0.3 (0.0-1.0) mg/dL AST 16 (5-31) U/L ALT 7 (0-31) U/L Alkaline Phosphatase 162 H (39-117) U/L Total Protein 6.9 (6.5-8.0) g/dL Albumin 3.9 (3.5-5.0) g/dL Lipase 20 (8-78) U/L Influenza Type A (PCR) NEGATIVE (Negative) Influenza Type B (PCR) NEGATIVE (Negative) RSV RNA Qual (PCR) NEGATIVE (Negative) SARS-CoV-2 RNA (RT-PCR) NEGATIVE (Negative) Discharge Plan Discharge Clinical Impression: Abdominal pain Patient Disposition: Left W/O Completing Treatment Prescriptions: No Action citalopram 20 mg tablet 20 mg PO BEDTIME 90 Days Qty: 90 1RF docusate sodium 100 mg capsule 100 mg PO BID PRN (Reason: constipation) 30 Days Qty: 60 1RF aspirin 81 mg tablet,delayed release (DR/EC) 81 mg PO QAM Qty: 90 0RF alprazolam [Xanax] 0.25 mg tablet 0.25 mg PO TID PRN (Reason: anxiety) 30 Days Qty: 90 0RF pantoprazole 40 mg tablet,delayed release (DR/EC) 40 mg PO QAM Qty: 30 1RF ondansetron 4 mg tablet,disintegrating 4 mg PO Q6H PRN (Reason: nausea and vomiting) Qty: 14 0RF losartan 25 mg tablet 25 mg PO DAILY 90 Days Qty: 90 1RF albuterol sulfate 90 mcg/actuation HFA aerosol inhaler 1 inh inhalation QID PRN (Reason: shortness of breath or wheezing) 30 Days Qty: 8.5 0RF gabapentin 100 mg capsule 100 mg PO BID 15 Days Qty: 30 0RF nitrofurantoin monohyd/m-cryst [Macrobid] 100 mg capsule 100 mg PO Q12H 5 Days Qty: 10 0RF Rx Instructions: must administer with a meal/food phenazopyridine [Pyridium] 200 mg tablet 200 mg PO TID PRN (Reason: pain) 10 Days Qty: 14 0RF oxybutynin chloride 5 mg tablet 5 mg PO BEDTIME PRN (Reason: bladder spasms) 7 Days Qty: 7 0RF fluticasone propionate 50 mcg/actuation spray,suspension 2 spray intranasal DAILY PRN (Reason: Allergic Symptoms) clopidogrel 75 mg tablet 75 mg PO QAM folic acid 400 mcg Tablet 0.4 mg PO DAILY cholecalciferol (vitamin D3) [Vitamin D3] 50 mcg (2,000 unit) Tablet 50 mcg PO DAILY acetaminophen [Tylenol] 325 mg capsule 325 mg PO Q4H PRN (Reason: pain) Qty: 30 0RF prednisone 20 mg tablet 20 mg PO DAILY 5 Days Qty: 5 0RF polyethylene glycol 3350 [Miralax] 17 gram/dose Powder 17 g PO DAILY PRN (Reason: Constipation) sennosides [Senna Laxative] 8.6 mg tablet 8.6 mg PO BID PRN (Reason: constipation) Qty: 14 0RF polyethylene glycol 3350 [ClearLax] 17 gram/dose powder 17 g PO DAILY Qty: 119 0RF Discharge Date/Time: 03/15/24 15:02
[2024-03-15 13:17] LABS: MANUAL DIFF FLAG NO
[2024-03-15 13:24] LABS: Basophils Percent Auto 1.1 % (0-2); Eosinophils Absolute Auto 0.1 X10*3/uL (0.0-0.4); Eosinophils Percent Auto 4.7 % (0-4); Hematocrit 31.4 % (37.0-47.0); Hemoglobin 10.3 g/dl (12.0-16.0); Imm Gran Abs Auto 0.01 X10*3/uL (0.00-0.03); Imm Gran Pct Auto 0.4 % (0.0-0.4); Lymphocytes Absolute Auto 0.4 X10*3/uL (1.2-4.9); Lymphocytes Percent Auto 14.5 % (20-40); Mean Corpuscular HGB Conc 32.8 g/dl (31.0-35.0); Mean Corpuscular Volume 91.5 fL (80.0-98.0); Mean Platelet Volume 10.9 fL (9.4-12.3); Monocytes Absolute Auto 0.2 X10*3/uL (0.1-1.2); Neutrophils Percent Auto 71.3 % (45-73); Platelet Count 143 X10*3/uL (160-400); Red Blood Count 3.43 X10*6/uL (4.20-5.50); Red Cell Distribution Width 13.9 % (11.0-16.0); White Blood Count 2.8 X10*3/uL (4.8-10.8)
[2024-03-15 13:33] LABS: Alanine Aminotransferase 7 U/L (0-31); Albumin Level 3.9 g/dL (3.5-5.0); Alkaline Phosphatase 162 U/L (39-117); Anion Gap 14 (12-20); Aspartate Amino Transferase 16 U/L (5-31); Bilirubin Total 0.3 mg/dL (0.0-1.0); Blood Urea Nitrogen 16 mg/dL (9-16); Calcium 9.5 mg/dL (8.4-10.2); Carbon Dioxide 30 mmol/L (22-29); Chloride 100 mmol/L (96-108); Creatinine Clr Calc Pharmacy 51.8; Estimated Glomerular Filt Rate > 60; Glucose Random 96 mg/dL (60-115); Lipase 20 U/L (8-78); Potassium 4.1 mmol/L (3.3-5.1); Sodium 140 mmol/L (135-145); Total Protein 6.9 g/dL (6.5-8.0)
[2024-03-15 13:58] LABS: Influenza A PCR NEGATIVE (Negative); Influenza B PCR NEGATIVE (Negative); Resp Syncy Virus RNA Qual PCR NEGATIVE (Negative); SARS COV2 PCR INHOUSE NEGATIVE (Negative)
== END 2024-03-15 15:02 | disposition left against medical advice (07) ==
PROVIDERS: Nurse Practitioner Family; Emergency Provider Emergency Medicine; PCP Physician Assistant
DX: R10.9 Unspecified abdominal pain (principal); I10 Essential (primary) hypertension; Z03.818 Encounter for observation for suspected exposure to other biological agents ruled out; R05.9 Cough, unspecified; Z79.82 Long term (current) use of aspirin; Z79.899 Other long term (current) drug therapy
CPT/HCPCS: 0241U; 80053; 83690; 83735; 85025; 99281

== ENCOUNTER 2024-03-24 17:21 | Emergency (ER) | payer MEDICARE, OTHER, SELFPAY ==
[2024-03-24 17:30] VITALS: BP 148/83; PULSE 84; RESP 16; TEMP 36.9; O2SAT 96; BMI 25.3
--- NOTE | 2024-03-24 17:30 | ED_ITS ---
HPI - Abdominal Pain General Chief Complaint: Abdominal Pain Stated Complaint: dx diverticulitis, ref by pcp Time Seen by Provider: 03/24/24 18:02 History of Present Illness ED Provider: Kenyon TRIPATHI narrative: The patient is an 83-year-old woman well known to this department. Today's ER visit represents her 20th ER visit this calendar year. She presents today for evaluation of abdominal pain. She has had 3 CT scans of the abdomen and pelvis this year all of which have showed no acute pathology. Six of her visits this year have been for a complaint of abdominal pain. She has also had ultrasounds of her abdomen. Says that she woke up this morning feeling pain in her left lower abdomen. She also felt that she had loss of appetite. She has been having been stools. She says that she called her doctor who told her to come to the emergency room for evaluation of possible diverticulitis. She has a history of diverticulitis. She says she had an appendectomy as a child. She thinks she had surgery for diverticulitis at [facility] several years ago. She drove herself to the hospital today. Related Data Home Medications ?Medication ?Instructions ?Recorded ?Confirmed polyethylene glycol 3350 17 17 g PO DAILY PRN Constipation 10/11/23 02/14/24 gram/dose oral powder (Miralax) cholecalciferol (vitamin D3) 50 50 mcg PO DAILY 11/23/23 02/14/24 mcg (2,000 unit) tablet (Vitamin D3) clopidogrel 75 mg tablet 75 mg PO QAM 11/23/23 02/14/24 folic acid 400 mcg tablet 0.4 mg PO DAILY 11/23/23 02/14/24 Previous Rx's ?Medication ?Instructions ?Recorded citalopram 20 mg tablet 20 mg PO BEDTIME 90 days #90 tabs 10/23/23 docusate sodium 100 mg capsule 100 mg PO BID PRN constipation 30 11/08/23 days #60 caps acetaminophen 325 mg capsule 325 mg PO Q4H PRN pain #30 caps 12/17/23 (Tylenol) polyethylene glycol 3350 17 17 g PO DAILY #119 grams 01/04/24 gram/dose oral powder (ClearLax) sennosides 8.6 mg tablet (Senna 8.6 mg PO BID PRN constipation #14 01/04/24 Laxative) tabs aspirin 81 mg tablet,delayed 81 mg PO QAM #90 tabs 02/05/24 release prednisone 20 mg tablet 20 mg PO DAILY 5 days #5 tabs 02/06/24 alprazolam 0.25 mg tablet (Xanax) 0.25 mg PO TID PRN anxiety 30 days 02/07/24 #90 tabs pantoprazole 40 mg tablet,delayed 40 mg PO QAM #30 tabs 02/18/24 release losartan 25 mg tablet 25 mg PO DAILY 90 days #90 tabs 02/28/24 ondansetron 4 mg disintegrating 4 mg PO Q6H PRN nausea and 02/28/24 tablet vomiting #14 tabs albuterol sulfate 90 mcg/actuation 1 inh inhalation QID PRN shortness 03/01/24 aerosol inhaler of breath or wheezing 30 days #8.5 grams gabapentin 100 mg capsule 100 mg PO BID 15 days #30 caps 03/05/24 nitrofurantoin 100 mg PO Q12H 5 days #10 caps 03/10/24 monohydrate/macrocrystals 100 mg capsule (Macrobid) phenazopyridine 200 mg tablet 200 mg PO TID PRN pain 10 days #14 03/13/24 (Pyridium) tabs oxybutynin chloride 5 mg tablet 5 mg PO BEDTIME PRN bladder spasms 03/18/24 7 days #7 tabs fluticasone propionate 50 2 spray intranasal DAILY PRN 03/19/24 mcg/actuation nasal Allergic Symptoms #16 grams spray,suspension Allergies Allergy/AdvReac Type Severity Reaction Status Date / Time buspirone Allergy Intermediate Rash Verified 03/24/24 17:35 Sulfa (Sulfonamide Allergy Intermediate RASH Verified 03/24/24 17:35 Antibiotics) cefuroxime Allergy Unknown Unknown Verified 03/24/24 17:35 garlic [GARLIC] Allergy Unknown PER H&P Verified 03/24/24 17:35 metronidazole [From FLAGYL] Allergy Unknown OCULAR Verified 03/24/24 17:35 MIGRAINES penicillamine Allergy Unknown Unknown Verified 03/24/24 17:35 ciprofloxacin AdvReac Intermediate neuropathic Verified 03/24/24 17:35 pain lisinopril AdvReac Intermediate Cough Verified 03/24/24 17:35 nitrofurantoin AdvReac Mild GI side Verified 03/24/24 17:35 effects cefuroxime Allergy Intermediate wheezy Uncoded 02/08/24 11:25 cough/itch flagyl Allergy Unknown Unknown Uncoded 02/08/24 11:25 From KEFLEX Allergy Unknown RASH Uncoded 02/08/24 11:25 Metoprolol Tartrate Allergy Unknown Unknown Uncoded 02/08/24 11:25 Sulfacet-R Allergy Unknown Unknown Uncoded 02/08/24 11:25 Review of Systems Review of Systems Yes all other systems are reviewed and are negative [facility] Past Medical History Medical History (Updated 03/24/24 @ 19:58 by Luis Prescott MD) HTN (hypertension) Cough Heart palpitations Constipation LLQ abdominal pain Anxiety Breast cancer screening Breast pain, left Elevated vitamin B12 level Neck muscle spasm Strain of neck muscle Low back pain Pubic ramus fracture Sore throat Skin tear of upper arm without complication Head injury, acute, without loss of consciousness Fall Dizziness Medication noncompliance due to cognitive impairment RLQ abdominal pain Sinusitis Flu syndrome Precordial chest pain Atypical chest pain Cold intolerance Former smoker Pulmonary nodule Abnormal lung sounds Fever Bilateral calf pain Nausea Left lower quadrant abdominal pain Dysuria Fatigue Lower extremity weakness Aortic stenosis Obstipation Dark stools Lower abdominal pain Gastroenteritis Neck pain on right side URI (upper respiratory infection) Back pain Chest pain Rhinitis Elevated BP without diagnosis of hypertension Non-rheumatic aortic stenosis Diverticulitis GERD (gastroesophageal reflux disease) Cat scratch Cat bite Epigastric discomfort Diarrhea Nausea Viral syndrome GERD (gastroesophageal reflux disease) Neuropathy Arthritis GERD (gastroesophageal reflux disease) HTN (hypertension) Irritable bowel Heart murmur Surgical History S/P TAVR (transcatheter aortic valve replacement) Hx of esophagogastroduodenoscopy Hx of colonoscopy History of tonsillectomy History of appendectomy Family History Family History Father No problems noted. Mother No problems noted. Social History Social History Household Members: Children Housing: House Are you a primary patient care provider to a significant other at home: No Do you presently have visiting nurse or other home services: No Alcohol intake: former Patient Tobacco Use Status: Former Tobacco user Tobacco use type: Cigarette e-Cigarette/Vaping Use: Never Used Second Hand Smoke Exposure: No Advance Directives: Yes Advance Directives on File: Yes Advance Directives Date on File: 09/21/23 Do you have a plan to hurt others: No Plan service: No Current occupational status: retired Cognitive needs: No Hearing needs: No Vision needs: Yes (glasses) Physical Exam ED Vital Signs: Vital Signs - 24 hr 03/24/24 17:30 03/24/24 20:20 Temperature 98.5 F 98.0 F Pulse Rate 84 81 Respiratory Rate 16 18 Blood Pressure 148/83 H 152/86 H Pulse Oximetry 96 95 Oxygen Delivery Method Room Air Room Air BMI result Body Mass Index 25.3 Const Other: The patient is awake and alert. She does not appear in acute distress. She is very talkative. HENMT Other: Face is symmetrical. Mucous membranes moist. Eyes Other: Pupils are round equal, conjunctivae are clear Neck Other: No JVD Resp Effort & Inspection: normal respiratory effort Auscultation: clear to auscultation bilaterally Cardio Rate: regular rate Rhythm: regular rhythm Heart sounds: S1 normal heart sound present and S2 normal heart sound present GI Other: The patient's abdomen is flat and soft. When distracted she does not seem to have any tenderness. Skin Other: Skin is dry and unremarkable Neuro Other: The patient is awake and alert. Cranial nerves are grossly intact. She moves her extremities normally. Extrem Other: No calf swelling or tenderness. Normal pedal pulses. Course Course Course Narrative: This is a rapid medical exam. Deferred additional HPI, ROS, PE to primary provider. 83 yo female hx of memory impairment, anxiety, depression, frequent falls, HTN, aortic stenosis, embolic stroke, diverticulitis, GERD, IBS here with complaints of abdominal pain on and off for years. Will obtain labs, UA ROSANAS -Dori Dhillon APRN Medical Decision Making Medical Decision Making MDM Narrative: The patient is an 83-year-old who presents for evaluation of left lower quadrant abdominal pain that started this morning. I feel her abdomen is benign. Her vital signs are unremarkable. The patient's white blood count is 3.4 which seems to be about her normal white blood count. Her differential is unremarkable. Her CRP is normal. I have very low suspicion for any acute intra-abdominal process. I think the patient's frequent use of the emergency room may be related to an anxiety disorder. She receives prescribed alprazolam. I think she may be discharged to follow up with her regular doctor. Lab Data 03/24/24 18:20 03/24/24 18:20 Labs: Lab Results 03/24/24 Range/Units 18:20 WBC 3.4 L (4.8-10.8) X10*3/uL RBC 3.49 L (4.20-5.50) X10*6/uL Hgb 10.5 L (12.0-16.0) g/dl Hct 31.5 L (37.0-47.0) % MCV 90.3 (80.0-98.0) fL MCH 30.1 (27.0-33.0) pg MCHC 33.3 (31.0-35.0) g/dl RDW 14.2 (11.0-16.0) % Plt Count 127 L (160-400) X10*3/uL MPV 11.3 (9.4-12.3) fL Immature Gran % (Auto) 0.6 H (0.0-0.4) % Neut % (Auto) 66.8 (45-73) % Lymph % (Auto) 19.5 L (20-40) % [place] % (Auto) 7.8 (2-11) % Eos % (Auto) 4.4 H (0-4) % Baso % (Auto) 0.9 (0-2) % Lymph # (Auto) 0.7 L (1.2-4.9) X10*3/uL [place] # (Auto) 0.3 (0.1-1.2) X10*3/uL Eos # (Auto) 0.2 (0.0-0.4) X10*3/uL Baso # (Auto) 0.0 (0.0-0.2) X10*3/uL Abs Immat Gran (auto) 0.02 (0.00-0.03) X10*3/uL Absolute Neuts (auto) 2.3 (2.0-8.3) x10*3/uL Absolute Nucleated RBC 0.000 (0.0-0.012) X10*3/uL Nucleated RBC % (auto) 0.0 (0.0-0.2) /100WBC Sodium 139 (135-145) mmol/L Potassium 4.2 (3.3-5.1) mmol/L Chloride 103 (96-108) mmol/L Carbon Dioxide 28 (22-29) mmol/L Anion Gap 12 (12-20) BUN 15 (9-16) mg/dL Creatinine 0.88 (0.5-1.4) mg/dL Estim Creat Clear Calc 49.0 Estimated GFR > 60 Random Glucose 123 H (60-115) mg/dL Calcium 10.5 H D (8.4-10.2) mg/dL Total Bilirubin 0.6 (0.0-1.0) mg/dL Direct Bilirubin 0.2 (0.0-0.5) mg/dL AST 19 (5-31) U/L ALT 9 (0-31) U/L Alkaline Phosphatase 138 H (39-117) U/L C-Reactive Protein < 0.10 (< or = 0.50) mg/dL Total Protein 7.4 (6.5-8.0) g/dL Albumin 4.2 (3.5-5.0) g/dL Discharge Plan Discharge Clinical Impression: Abdominal pain Patient Disposition: Home, Self-Care Additional Instructions: Your testing today seems very reassuring. Please follow up soon with your regular doctor. Prescriptions: No Action citalopram 20 mg tablet 20 mg PO BEDTIME 90 Days Qty: 90 1RF docusate sodium 100 mg capsule 100 mg PO BID PRN (Reason: constipation) 30 Days Qty: 60 1RF aspirin 81 mg tablet,delayed release (DR/EC) 81 mg PO QAM Qty: 90 0RF alprazolam [Xanax] 0.25 mg tablet 0.25 mg PO TID PRN (Reason: anxiety) 30 Days Qty: 90 0RF pantoprazole 40 mg tablet,delayed release (DR/EC) 40 mg PO QAM Qty: 30 1RF ondansetron 4 mg tablet,disintegrating 4 mg PO Q6H PRN (Reason: nausea and vomiting) Qty: 14 0RF losartan 25 mg tablet 25 mg PO DAILY 90 Days Qty: 90 1RF albuterol sulfate 90 mcg/actuation HFA aerosol inhaler 1 inh inhalation QID PRN (Reason: shortness of breath or wheezing) 30 Days Qty: 8.5 0RF gabapentin 100 mg capsule 100 mg PO BID 15 Days Qty: 30 0RF nitrofurantoin monohyd/m-cryst [Macrobid] 100 mg capsule 100 mg PO Q12H 5 Days Qty: 10 0RF Rx Instructions: must administer with a meal/food phenazopyridine [Pyridium] 200 mg tablet 200 mg PO TID PRN (Reason: pain) 10 Days Qty: 14 0RF oxybutynin chloride 5 mg tablet 5 mg PO BEDTIME PRN (Reason: bladder spasms) 7 Days Qty: 7 0RF fluticasone propionate 50 mcg/actuation spray,suspension 2 spray intranasal DAILY PRN (Reason: Allergic Symptoms) Qty: 16 0RF clopidogrel 75 mg tablet 75 mg PO QAM folic acid 400 mcg Tablet 0.4 mg PO DAILY cholecalciferol (vitamin D3) [Vitamin D3] 50 mcg (2,000 unit) Tablet 50 mcg PO DAILY acetaminophen [Tylenol] 325 mg capsule 325 mg PO Q4H PRN (Reason: pain) Qty: 30 0RF prednisone 20 mg tablet 20 mg PO DAILY 5 Days Qty: 5 0RF polyethylene glycol 3350 [Miralax] 17 gram/dose Powder 17 g PO DAILY PRN (Reason: Constipation) sennosides [Senna Laxative] 8.6 mg tablet 8.6 mg PO BID PRN (Reason: constipation) Qty: 14 0RF polyethylene glycol 3350 [ClearLax] 17 gram/dose powder 17 g PO DAILY Qty: 119 0RF Referrals: Chacho Mauricio MD [Primary Care Provider] - (Recurrent abdominal pain) Interventions: ED Discharge Assessment Last Done: 03/24/24 20:20 Discharge Date/Time: 03/24/24 20:22 Print Language: Syriac
[2024-03-24 18:29] LABS: MANUAL DIFF FLAG NO
[2024-03-24 18:33] LABS: Basophils Percent Auto 0.9 % (0-2); Eosinophils Absolute Auto 0.2 X10*3/uL (0.0-0.4); Eosinophils Percent Auto 4.4 % (0-4); Hematocrit 31.5 % (37.0-47.0); Hemoglobin 10.5 g/dl (12.0-16.0); Imm Gran Abs Auto 0.02 X10*3/uL (0.00-0.03); Imm Gran Pct Auto 0.6 % (0.0-0.4); Lymphocytes Absolute Auto 0.7 X10*3/uL (1.2-4.9); Lymphocytes Percent Auto 19.5 % (20-40); Mean Corpuscular HGB Conc 33.3 g/dl (31.0-35.0); Mean Corpuscular Hemoglobin 30.1 pg (27.0-33.0); Mean Corpuscular Volume 90.3 fL (80.0-98.0); Mean Platelet Volume 11.3 fL (9.4-12.3); Monocytes Absolute Auto 0.3 X10*3/uL (0.1-1.2); Monocytes Percent Auto 7.8 % (2-11); Neutrophils Absolute Auto 2.3 x10*3/uL (2.0-8.3); Neutrophils Percent Auto 66.8 % (45-73); Platelet Count 127 X10*3/uL (160-400); Red Blood Count 3.49 X10*6/uL (4.20-5.50); Red Cell Distribution Width 14.2 % (11.0-16.0); White Blood Count 3.4 X10*3/uL (4.8-10.8)
[2024-03-24 18:52] LABS: Alanine Aminotransferase 9 U/L (0-31); Albumin Level 4.2 g/dL (3.5-5.0); Alkaline Phosphatase 138 U/L (39-117); Anion Gap 12 (12-20); Aspartate Amino Transferase 19 U/L (5-31); Bilirubin Direct 0.2 mg/dL (0.0-0.5); Bilirubin Total 0.6 mg/dL (0.0-1.0); Blood Urea Nitrogen 15 mg/dL (9-16); C Reactive Protein < 0.10 mg/dL (< or = 0.50); Calcium 10.5 mg/dL (8.4-10.2); Carbon Dioxide 28 mmol/L (22-29); Chloride 103 mmol/L (96-108); Estimated Glomerular Filt Rate > 60; Glucose Random 123 mg/dL (60-115); Potassium 4.2 mmol/L (3.3-5.1); Sodium 139 mmol/L (135-145); Total Protein 7.4 g/dL (6.5-8.0)
[2024-03-24 20:20] VITALS: BP 152/86; PULSE 81; RESP 18; TEMP 36.7; O2SAT 95
== END 2024-03-24 20:22 | disposition home or self-care (01) ==
PROVIDERS: Nurse Practitioner Family; Emergency Provider Emergency Medicine; PCP Family Medicine
DX: R10.32 Left lower quadrant pain (principal); Z79.899 Other long term (current) drug therapy
CPT/HCPCS: 36415; 80048; 80076; 85025; 86140; 99283; 99284

== ENCOUNTER 2024-03-27 11:56 | Emergency (ER) | payer MEDICARE, OTHER, SELFPAY ==
--- NOTE | ~2024-03-27 | CT_ITS ---
EXAMINATION: CT HEAD W/O IV CONTRAST CT CERVICAL SPINE W/O IV CONTRAST CLINICAL INFORMATION: History of fall with head strike. Neck pain. Dizziness. COMPARISON: CT of head and cervical spine from 11/23/2023. TECHNIQUE: Head - Contiguous axial imaging of the head was performed from the skull base to the vertex without the administration of intravenous contrast, and axial images are reconstructed at 0.6 mm, 2 mm and 5 mm slice thickness. Cervical spine - A volumetric, helical CT acquisition of the cervical spine was obtained without contrast; in addition to the standard set of axial images, multiplanar reformatted images were provided in the coronal and sagittal imaging planes. This CT examination was performed using dose optimization techniques as appropriate, variously including the following: *Automated exposure control *Adjustment of mA and/or kV according to patient size (this includes techniques or standardized protocols for targeted exams where dose is matched to indication/reason for exam; i.e. extremities or head) *Use of iterative reconstruction technique DLP: 940 mGy-cm (total) FINDINGS: HEAD: No acute abnormalities compared to 11/23/2023. No intracranial hemorrhage, extra-axial surface collection, focal mass effect or midline shift. There is atherosclerotic calcification of cavernous carotid arteries. Chronic patchy and confluent hypoattenuation within supratentorial white matter is compatible with sequela of chronic severe microangiopathy. There is no evidence of an acute major vascular territory infarction. 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 Minimal mucus along the posteroinferior left maxillary sinus wall. The mastoid air cells are well aerated. Chronic arthrosis of temporomandibular joints. The visualized orbits are intact. Prior ocular lens extractions. CERVICAL SPINE: The degenerated cervical spine has well preserved lordotic curvature. The craniocervical junction is normal. The occipital condyles, dens and atlantodental articulation are intact. There is subarticular sclerosis and osteophyte formation at the atlantodental articulation. Chronic multilevel facet arthropathy and disc degenerative changes. There are no new observations in the cervical or visualized upper thoracic spine compared to 11/23/2023. No acute fractures or traumatic subluxation. No prevertebral edema or soft tissue hematoma. Again noted is the multinodular thyroid gland with largest nodule in the left lobe measuring 2 cm AP dimension. Thyroid imaging follow-up is not necessarily required. Follow-up imaging would not be recommended for incidentally detected nodules without high risk imaging features in patients who have limited life expectancy or significant comorbidities unless clinically warranted. Azygos fissure of the right apex. Chronic emphysematous lung disease and old reticular opacities of scarring and mild traction bronchiectasis at apices. CT/CT cervical spine wo IV con IMPRESSION: * No intracranial hemorrhage or other acute intracranial pathology compared to 11/23/2023. * No fracture or traumatic subluxation in the degenerated cervical spine.
[2024-03-27 12:03] VITALS: BP 142/79; PULSE 87; RESP 18; TEMP 36.6; O2SAT 98; BMI 24.9
--- NOTE | 2024-03-27 12:05 | ED.GENADULT ---
HPI - General Adult General Chief complaint: Head Injury Stated complaint: Fall, multiple complaints Time Seen by Provider: 03/27/24 18:48 Related Data Home Medications ?Medication ?Instructions ?Recorded ?Confirmed cholecalciferol (vitamin D3) 50 50 mcg PO DAILY 11/23/23 03/28/24 mcg (2,000 unit) tablet (Vitamin D3) clopidogrel 75 mg tablet 75 mg PO QAM 11/23/23 03/28/24 folic acid 400 mcg tablet 0.4 mg PO DAILY 11/23/23 03/28/24 alprazolam 0.25 mg tablet 0.25 mg PO BID 03/28/24 03/28/24 Previous Rx's ?Medication ?Instructions ?Recorded citalopram 20 mg tablet 20 mg PO BEDTIME 90 days #90 tabs 10/23/23 acetaminophen 325 mg capsule 325 mg PO Q4H PRN pain #30 caps 12/17/23 (Tylenol) aspirin 81 mg tablet,delayed 81 mg PO QAM #90 tabs 02/05/24 release pantoprazole 40 mg tablet,delayed 40 mg PO QAM #30 tabs 02/18/24 release losartan 25 mg tablet 25 mg PO DAILY 90 days #90 tabs 02/28/24 Allergies Allergy/AdvReac Type Severity Reaction Status Date / Time buspirone Allergy Intermediate Rash Verified 03/27/24 12:05 Sulfa (Sulfonamide Allergy Intermediate RASH Verified 03/27/24 12:05 Antibiotics) cefuroxime Allergy Unknown Unknown Verified 03/27/24 12:05 garlic [GARLIC] Allergy Unknown PER H&P Verified 03/27/24 12:05 metronidazole [From FLAGYL] Allergy Unknown OCULAR Verified 03/27/24 12:05 MIGRAINES penicillamine Allergy Unknown Unknown Verified 03/27/24 12:05 ciprofloxacin AdvReac Intermediate neuropathic Verified 03/27/24 12:05 pain lisinopril AdvReac Intermediate Cough Verified 03/27/24 12:05 nitrofurantoin AdvReac Mild GI side Verified 03/27/24 12:05 effects cefuroxime Allergy Intermediate wheezy Uncoded 03/27/24 12:05 cough/itch flagyl Allergy Unknown Unknown Uncoded 03/27/24 12:05 From KEFLEX Allergy Unknown RASH Uncoded 03/27/24 12:05 Metoprolol Tartrate Allergy Unknown Unknown Uncoded 03/27/24 12:05 Sulfacet-R Allergy Unknown Unknown Uncoded 03/27/24 12:05 [facility] Past Medical History Medical History (Updated 03/28/24 @ 00:24 by Chuyita Rodrigez MD) HTN (hypertension) Cough Heart palpitations Constipation LLQ abdominal pain Anxiety Breast cancer screening Breast pain, left Elevated vitamin B12 level Neck muscle spasm Strain of neck muscle Low back pain Pubic ramus fracture Sore throat Skin tear of upper arm without complication Head injury, acute, without loss of consciousness Fall Dizziness Medication noncompliance due to cognitive impairment RLQ abdominal pain Sinusitis Flu syndrome Precordial chest pain Atypical chest pain Cold intolerance Former smoker Pulmonary nodule Abnormal lung sounds Fever Bilateral calf pain Nausea Left lower quadrant abdominal pain Dysuria Fatigue Lower extremity weakness Aortic stenosis Obstipation Dark stools Lower abdominal pain Gastroenteritis Neck pain on right side URI (upper respiratory infection) Back pain Chest pain Rhinitis Elevated BP without diagnosis of hypertension Non-rheumatic aortic stenosis Diverticulitis GERD (gastroesophageal reflux disease) Cat scratch Cat bite Epigastric discomfort Diarrhea Nausea Viral syndrome GERD (gastroesophageal reflux disease) Neuropathy Arthritis GERD (gastroesophageal reflux disease) HTN (hypertension) Irritable bowel Heart murmur Surgical History S/P TAVR (transcatheter aortic valve replacement) Hx of esophagogastroduodenoscopy Hx of colonoscopy History of tonsillectomy History of appendectomy Family History Family History Father No problems noted. Mother No problems noted. Social History Social History Household Members: Children Housing: House Are you a primary wound care technician to a significant other at home: No Do you presently have visiting nurse or other home services: No Alcohol intake: former Patient Tobacco Use Status: Former Tobacco user Tobacco use type: Cigarette Smoked in Last 30 Days: No e-Cigarette/Vaping Use: Never Used Second Hand Smoke Exposure: No Use of substances other than those prescribed or required for medical reasons: No Advance Directives: Yes Advance Directives on File: Yes Advance Directives Date on File: 09/21/23 service: No Current occupational status: retired Cognitive needs: No Hearing needs: No Vision needs: Yes (glasses) Physical Exam ED Vital Signs: Vital Signs - 24 hr 03/27/24 12:03 03/27/24 18:54 03/27/24 20:11 Temperature 98 F 98.4 F 98.3 F Pulse Rate 87 85 82 Respiratory Rate 18 18 16 Blood Pressure 142/79 H 144/87 H 141/78 H Pulse Oximetry 98 95 97 Oxygen Delivery Method Room Air Room Air 03/27/24 22:01 03/27/24 22:01 03/27/24 22:02 Temperature Pulse Rate 86 90 97 Respiratory Rate Blood Pressure 141/70 H 132/76 141/68 H Pulse Oximetry Oxygen Delivery Method 03/27/24 22:17 Temperature 98.4 F Pulse Rate 86 Respiratory Rate 18 Blood Pressure 151/75 H Pulse Oximetry 95 Oxygen Delivery Method Room Air BMI result Body Mass Index 24.9 Course Course Course Narrative: This is a rapid medical exam performed by Vesna Stoner NP: Additional HPI, ROS, PE not included below will be deferred to primary provider. Patient is an 83-year-old female presenting to the ED with concern for concussion after trip and fall monday. Headache, dizziness and nausea since. Plan: CT head and neck Medical Decision Making Medical Decision Making [facility] Narrative: My interpretation of labs: At baseline hematology, chemistry at baseline, urinalysis negative for UTI -my interpretation of head CT, no intracranial bleed -orthostatic vitals negative -patient was able to ambulate -patient's nurse spoke with the patient's son. There is concerned that the patient lives by herself and has had multiple falls. Family requesting for physical therapy evaluation and care team/case management for possible placement versus short-term rehab. -patient does not want to be placed, patient is agreeable to be seen tomorrow for possible home physical therapy. -physician observation started at 00:25 Lab Data [facility] Lab Attestation statement: I reviewed the patient's lab results. 03/27/24 19:49 03/27/24 19:49 Labs: Lab Results 03/27/24 03/27/24 Range/Units 19:49 21:19 WBC 3.2 L (4.8-10.8) X10*3/uL RBC 3.01 L (4.20-5.50) X10*6/uL Hgb 9.0 L (12.0-16.0) g/dl Hct 27.9 L (37.0-47.0) % MCV 92.7 (80.0-98.0) fL MCH 29.9 (27.0-33.0) pg MCHC 32.3 (31.0-35.0) g/dl RDW 14.3 (11.0-16.0) % Plt Count 108 L (160-400) X10*3/uL MPV 11.5 (9.4-12.3) fL Immature Gran % (Auto) 0.6 H (0.0-0.4) % Neut % (Auto) 72.1 (45-73) % Lymph % (Auto) 15.5 L (20-40) % Cannon % (Auto) 8.7 (2-11) % Eos % (Auto) 2.5 (0-4) % Baso % (Auto) 0.6 (0-2) % Lymph # (Auto) 0.5 L (1.2-4.9) X10*3/uL Cannon # (Auto) 0.3 (0.1-1.2) X10*3/uL Eos # (Auto) 0.1 (0.0-0.4) X10*3/uL Baso # (Auto) 0.0 (0.0-0.2) X10*3/uL Abs Immat Gran (auto) 0.02 (0.00-0.03) X10*3/uL Absolute Neuts (auto) 2.3 (2.0-8.3) x10*3/uL Absolute Nucleated RBC 0.000 (0.0-0.012) X10*3/uL Nucleated RBC % (auto) 0.0 (0.0-0.2) /100WBC Sodium 140 (135-145) mmol/L Potassium 4.1 (3.3-5.1) mmol/L Chloride 104 (96-108) mmol/L Carbon Dioxide 28 (22-29) mmol/L Anion Gap 12 (12-20) BUN 17 H (9-16) mg/dL Creatinine 0.81 (0.5-1.4) mg/dL Estim Creat Clear Calc 49.2 Estimated GFR > 60 Random Glucose 84 (60-115) mg/dL Calcium 9.5 D (8.4-10.2) mg/dL Magnesium 2.1 (1.6-2.6) mg/dL Total Bilirubin 0.4 (0.0-1.0) mg/dL Direct Bilirubin 0.1 (0.0-0.5) mg/dL AST 19 (5-31) U/L ALT 9 (0-31) U/L Alkaline Phosphatase 136 H (39-117) U/L Troponin I High Sens 3.8 (<3.5-17.0) ng/L Total Protein 7.0 (6.5-8.0) g/dL Albumin 4.0 (3.5-5.0) g/dL Urine Color Yellow Urine Appearance Clear Urine pH 5.5 (5.0-9.0) Ur Specific [place] 1.020 (1.005-1.025) Urine Protein Negative (Neg-Trace) mg/dL Urine Glucose (UA) Negative (Negative) mg/dL Urine Ketones Negative (Negative) mg/dL Urine Blood Negative (Negative) Urine Nitrite Negative (Negative) Ur Leukocyte Esterase Trace H (Negative) Urine RBC 0-2 (0-2) /HPF Urine WBC 0-5 (0-5) /HPF Ur Squamous Epith Cells 0-2 (0-2) /HPF Urine Bacteria None Seen (None Seen) Hyaline Casts 0-2 (0-2) /LPF Independent Interpretation I performed an independent interpretation of an: CT Scan Radiology Impression Discussion of test interpretation with radiology: I have reviewed the radiologist's reading. Radiologist Impression: HEAD: No acute abnormalities compared to 11/23/2023. No intracranial hemorrhage, extra-axial surface collection, focal mass effect or midline shift. There is atherosclerotic calcification of cavernous carotid arteries. Chronic patchy and confluent hypoattenuation within supratentorial white matter is compatible with sequela of chronic severe microangiopathy. There is no evidence of an acute major vascular territory infarction. 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 Minimal mucus along the posteroinferior left maxillary sinus wall. The mastoid air cells are well aerated. Chronic arthrosis of temporomandibular joints. The visualized orbits are intact. Prior ocular lens extractions. CERVICAL SPINE: The degenerated cervical spine has well preserved lordotic curvature. The craniocervical junction is normal. The occipital condyles, dens and atlantodental articulation are intact. There is subarticular sclerosis and osteophyte formation at the atlantodental articulation. Chronic multilevel facet arthropathy and disc degenerative changes. There are no new observations in the cervical or visualized upper thoracic spine compared to 11/23/2023. No acute fractures or traumatic subluxation. No prevertebral edema or soft tissue hematoma. Again noted is the multinodular thyroid gland with largest nodule in the left lobe measuring 2 cm AP dimension. Thyroid imaging follow-up is not necessarily required. Follow-up imaging would not be recommended for incidentally detected nodules without high risk imaging features in patients who have limited life expectancy or significant comorbidities unless clinically warranted. Azygos fissure of the right apex. Chronic emphysematous lung disease and old reticular opacities of scarring and mild traction bronchiectasis at apices. CT/CT head/brain wo IV con IMPRESSION: * No intracranial hemorrhage or other acute intracranial pathology compared to 11/23/2023. * No fracture or traumatic subluxation in the degenerated cervical spine. Critical Care Time Critical Care Time Critical Care Time: Yes Total Critical Care Time: 35 Attestation: I have personally provided critical care time. Time includes review of lab data, radiology results, discussion with consultants, and monitoring for potential decompensation. Intervention performed as documented. Discharge Plan Discharge Clinical Impression: Multiple falls Patient Disposition: Still a Patient Prescriptions: No Action citalopram 20 mg tablet 20 mg PO BEDTIME 90 Days Qty: 90 1RF aspirin 81 mg tablet,delayed release (DR/EC) 81 mg PO QAM Qty: 90 0RF pantoprazole 40 mg tablet,delayed release (DR/EC) 40 mg PO QAM Qty: 30 1RF losartan 25 mg tablet 25 mg PO DAILY 90 Days Qty: 90 1RF clopidogrel 75 mg tablet 75 mg PO QAM folic acid 400 mcg Tablet 0.4 mg PO DAILY cholecalciferol (vitamin D3) [Vitamin D3] 50 mcg (2,000 unit) Tablet 50 mcg PO DAILY acetaminophen [Tylenol] 325 mg capsule 325 mg PO Q4H PRN (Reason: pain) Qty: 30 0RF alprazolam 0.25 mg Tablet 0.25 mg PO BID Print Language: [place]an
[2024-03-27 18:54] VITALS: BP 144/87; PULSE 85; RESP 18; TEMP 36.9; O2SAT 95
--- NOTE | 2024-03-27 19:38 | ECG_ITS ---
Test Reason : DIZZINESS Blood Pressure : / mmHG Vent. Rate : 085 BPM Atrial Rate : 085 BPM P-R Int : 262 ms QRS Dur : 084 ms QT Int : 386 ms P-R-T Axes : 048 -12 017 degrees QTc Int : 459 ms Sinus rhythm with 1st degree A-V block Inferior infarct , age undetermined Abnormal ECG When compared with ECG of 08-FEB-2024 12:23, No significant change was found Referred By: Chuyita Rodrigez Electronically Signed By:WILBUR MCFARLAND
[2024-03-27 20:01] LABS: MANUAL DIFF FLAG NO
[2024-03-27 20:11] VITALS: BP 141/78; PULSE 82; RESP 16; TEMP 36.8; O2SAT 97
[2024-03-27 20:16] LABS: Basophils Percent Auto 0.6 % (0-2); Eosinophils Absolute Auto 0.1 X10*3/uL (0.0-0.4); Eosinophils Percent Auto 2.5 % (0-4); Hematocrit 27.9 % (37.0-47.0); Imm Gran Abs Auto 0.02 X10*3/uL (0.00-0.03); Imm Gran Pct Auto 0.6 % (0.0-0.4); Lymphocytes Absolute Auto 0.5 X10*3/uL (1.2-4.9); Lymphocytes Percent Auto 15.5 % (20-40); Mean Corpuscular HGB Conc 32.3 g/dl (31.0-35.0); Mean Corpuscular Hemoglobin 29.9 pg (27.0-33.0); Mean Corpuscular Volume 92.7 fL (80.0-98.0); Mean Platelet Volume 11.5 fL (9.4-12.3); Monocytes Absolute Auto 0.3 X10*3/uL (0.1-1.2); Monocytes Percent Auto 8.7 % (2-11); Neutrophils Absolute Auto 2.3 x10*3/uL (2.0-8.3); Neutrophils Percent Auto 72.1 % (45-73); Platelet Count 108 X10*3/uL (160-400); Red Blood Count 3.01 X10*6/uL (4.20-5.50); Red Cell Distribution Width 14.3 % (11.0-16.0); White Blood Count 3.2 X10*3/uL (4.8-10.8)
[2024-03-27 20:19] LABS: Alanine Aminotransferase 9 U/L (0-31); Alkaline Phosphatase 136 U/L (39-117); Anion Gap 12 (12-20); Aspartate Amino Transferase 19 U/L (5-31); Bilirubin Direct 0.1 mg/dL (0.0-0.5); Bilirubin Total 0.4 mg/dL (0.0-1.0); Blood Urea Nitrogen 17 mg/dL (9-16); Calcium 9.5 mg/dL (8.4-10.2); Carbon Dioxide 28 mmol/L (22-29); Chloride 104 mmol/L (96-108); Creatinine Clr Calc Pharmacy 49.2; Estimated Glomerular Filt Rate > 60; Glucose Random 84 mg/dL (60-115); Magnesium 2.1 mg/dL (1.6-2.6); Potassium 4.1 mmol/L (3.3-5.1); Sodium 140 mmol/L (135-145)
[2024-03-27 20:25] LABS: Troponin-I High Sensitivity 3.8 ng/L (<3.5-17.0)
[2024-03-27 21:27] LABS: Appearance Urine Clear; Color Urine Yellow; Glucose Urine UA Negative (Negative); Leukocyte Esterase Urine Trace (Negative); Nitrite Urine Negative (Negative); PH 5.5 (5.0-9.0); UMIC TRIGGER UACC YES; Urine Blood Negative (Negative); Urine Ketones Negative (Negative); Urine Protein Negative (Neg-Trace)
[2024-03-27 21:32] LABS: Bacteria Urine None Seen (None Seen); Hyaline Casts Urine 0-2 /LPF (0-2); RBC Urine 0-2 /HPF (0-2); Squamous Epithelial Cell Urine 0-2 /HPF (0-2); WBC Urine 0-5 /HPF (0-5)
[2024-03-27 22:01] VITALS: BP 132/76; BP 141/70; PULSE 86; PULSE 90
[2024-03-27 22:02] VITALS: BP 141/68; PULSE 97
[2024-03-27 22:17] VITALS: BP 151/75; PULSE 86; RESP 18; TEMP 36.9; O2SAT 95
[2024-03-28 00:34] VITALS: BP 127/85; PULSE 88; RESP 19; TEMP 36.9; O2SAT 94
[2024-03-28] MEDS: Acetaminophen 325 MG TABLET PO (01:49)
--- NOTE | 2024-03-28 05:29 | PC.NURSE ---
pt refusing to go to overflow; recharger is aware.
[2024-03-28 06:27] VITALS: BP 131/69; PULSE 86; RESP 19; TEMP 36.9; O2SAT 95
[2024-03-28 08:23] VITALS: BP 135/77; PULSE 96; RESP 18; O2SAT 94
--- NOTE | 2024-03-28 08:54 | PC.NURSE ---
Report called to TERRA Berrios in Overflow. Awaiting transport at this time.
--- NOTE | 2024-03-28 09:36 | PC.NURSE ---
this continuity writer received report from TERRA Gracia from the ED at this time. pt just arrived to the overflow unit via transport. upon arrival - a&ox4. vss and up to date. pt presents to the ED s/p unwitnessed fall leaving an ER on monday. pt reports that she was walking and lost her balance. pt denies feeling dizzy/lightheaded prior to the fall. unknown headstrike. denies loc. +thinners (plavix). pt currently reporting discomfort in left hip. denies any numbness/tingling. cms intact. pulses palpable. pt reporting to this continuity writer that she is hungry - breakfast tray ordered. medication reconciliation completed by previous RN - provider notified that medication needs to be ordered. will administer medication when able. pt seems to be in no apparent distress. pending PT/CM disposition at this time. no sob/wob noted. respirations even/unlabored. bed alarm turned on for safety precautions. plan of care ongoing. call mcmahan placed within reach.
[2024-03-28 09:40] VITALS: BP 144/77; PULSE 82; RESP 19; O2SAT 96
--- NOTE | 2024-03-28 10:10 | PC.NURSE ---
pt sitting upright eating breakfast at this time. per CM - pt will be picked up by her son, Tristan, around noon time. pt notified/aware.
[2024-03-28] MEDS: Acetaminophen 325 MG TABLET 975 MG PO (10:41)
--- NOTE | 2024-03-28 10:42 | PC.NURSE ---
pt c/o discomfort in left hip - requesting tylenol. one time dose of tylenol ordered/administered at this time. effectiveness pending.
--- NOTE | 2024-03-28 11:03 | MHC.CM.ED ---
Received case management consult overnight. Patient came to the ER d/t fall with head injury. Physical therapy eval completed. Home services are recommended. Patient is well known to Case management due to frequent ER visits. Patient has a history of constipation and anxiety. Spoke with patient's son/HCP, Hi, via telephone at [phone]. Hi was worried about patient d/c'ing home last night. Physical therapy findings explained. Hi agreeable to patient returning home. [facility] arranged. Hi will be on-site after 11am to transport patient home. Patient, Agustina Do RN and Mikaela GAVIN aware. Continue to monitor for d/c needs.
[2024-03-28 11:41] VITALS: BP 144/77; PULSE 82; RESP 19; TEMP 37; O2SAT 96
--- NOTE | 2024-03-28 11:42 | PC.NURSE ---
pt being transported back to main ED w/ BIT SHARPENER OPERATOR. pt using walker for assistance. pt being picked up/discharged w/ son (Tristan).
== END 2024-03-28 11:43 | disposition still patient (30) ==
PROVIDERS: Emergency Provider Emergency Medicine; PCP Physician Assistant
DX: R29.6 Repeated falls (principal); Z91.81 History of falling; R42 Dizziness and giddiness; M54.2 Cervicalgia; I10 Essential (primary) hypertension; Z87.891 Personal history of nicotine dependence; Z79.82 Long term (current) use of aspirin; Z79.899 Other long term (current) drug therapy
CPT/HCPCS: 36415; 70450; 72125; 80048; 80076; 81001; 83735; 84484; 85025; 93005; 97162; 99285

== ENCOUNTER → 2024-03-27 19:38 | Outpatient (BNV) | payer MEDICARE, OTHER, SELFPAY | PROVIDERS: Emergency Provider Emergency Medicine; PCP Physician Assistant; Visit Provider Internal Medicine | DX: R42 Dizziness and giddiness (principal) | CPT/HCPCS: 93010 ==

== ENCOUNTER → 2024-04-02 13:15 | Outpatient (REF) | payer MEDICARE, OTHER, SELFPAY ==
--- NOTE | 2024-04-02 13:19 | CA_ITS ---
Transthoracic Echocardiogram Patient (Last, First, Middle): Bella Henley G Gender: Female Date of : 1940 Age: 83 Procedure Date: 04/02/2024 Procedure Type: Transthoracic Echocardiogram Location: OP Height: 167.64 cm Weight: 69.85 kg BSA: 1.79 m2 Heart Rate: 82 bpm BP: 130 / 64 mmHg Pediatric Urologist: PRITESH Referring MD: Guillaume Callahan MD Grinder And Honer Operator Automatic: Guillaume Callahan MD Symptoms: Z95.2 - Presence of prosthetic heart valve Study Quality: Technically Difficult ECG Rhythm: Sinus Conclusions: - Normal left ventricular cavity size. There is normal left ventricular wall thickness. The left ventricular systolic function is hyperdynamic. The visually estimated ejection fraction is >70%. - E/E prime ratio is between 8 and 15 consistent with indeterminate filling pressures. - Normal right ventricular cavity size and systolic function. - A bioprosthetic aortic valve is present. The prosthetic aortic valve appears to be functioning normally. - There is mild to moderate mitral valve regurgitation. Findings Procedure Information The quality of the study was technically difficult. Left Ventricle Normal left ventricular cavity size. There is normal left ventricular wall thickness. The left ventricular systolic function is hyperdynamic. The visually estimated ejection fraction is >70%. There is no evidence of regional wall motion abnormalities. There is dynamic mid left ventricular obstruction. There is no systolic anterior motion of the mitral valve. Abnormal diastolic function is noted. Spectral Doppler is indicative of an impaired relaxation filling pattern. E/E prime ratio is between 8 and 15 consistent with indeterminate filling pressures. Right Ventricle Normal right ventricular cavity size and systolic function. Atria The left atrium is normal in size. Aortic Valve A bioprosthetic aortic valve is present. The prosthetic aortic valve appears to be functioning normally. There is no aortic valve stenosis. There is no aortic valve regurgitation. Mitral Valve There is moderate mitral annular calcification. There is mild to moderate mitral valve regurgitation. There is no mitral valve stenosis. Pulmonic Valve The pulmonic valve is likely normal. Tricuspid Valve Normal tricuspid valve structure. There is no tricuspid valve regurgitation. Normal right atrial pressure. There is no evidence of pulmonary hypertension. Great Vessels All visible segments of the aorta are normal in size. Venous The inferior vena cava is normal in size and collapses greater than 50% with inspiration. Pericardium/Pleural There is no evidence of pericardial effusion. Prior Study Comparison Changes noted compared to prior study dated: 09/25/2023. Mid LVOT gradient, mild to moderate MR. Measurements 2D Linear Measurements IVSd: 0.86 0.6-0.9/0.6-1.0 cm LVIDd: 3.29 3.9-5.3/4.2-5.9 cm LVIDd Index: 1.84 2.4-3.2/2.2-3.1 cm/m2 LVPWd: 0.84 0.7-1.1 cm LA Diam: 2.90 2.7-3.8/3.0-4.0 cm LAIDs Index: 1.62 1.5-2.3 cm/m2 LV Mass: 91.49 67-162/88-224 g LV Mass Index: 51.11 43-95/49-115 g/m2 LVOT Diam: 2.10 3.0+(-)1.3 cm 2D Systolic Function EF 4C: 64.60 >55% EF 2C: 68.40 >55% EF BiP: 67.00 >55% Mitral Valve MV VTI: 0.26 MV Pk Anthony: 1.49 MV Mn Anthony: 0.92 MV Pk Grad: 9.00 MV Mn Grad: 4.00 MV Pk E: 0.83 MV PK A: 1.28 MV Decel Time: 146.00 E/A: 0.60 E'Lateral: 9.79 E'Medial: 6.42 E/E' Med: 12.90 E/E' Lat: 8.40 PHT: 43.00 MVA PHT: 5.12 MVA Continuity: 5.45 Decel [place]: 5.67 Aortic Valve AoV Pk Anthony: 2.27 AoV Mn Anthony: 1.57 AoV VTI: 0.42 AoV Pk Grad: 21.00 Aov Mn Grad: 11.00 LULA Cont.VTI: 3.33 LVOT LVOT Pk Anthony: 2.16 LVOT Mn Anthony: 1.56 LVOT VTI: 0.40 LVOT Pk Grad: 19.00 LVOT Mn Grad: 11.00 LVOT Diam: 2.10 LVOT Area: 3.46 Diastolic Function MV Pk E: 0.83 MV Pk A: 1.28 E/A: 0.60 E'Medial: 6.42 E/E' Med: 12.90 E' Laterial: 9.79 E/E' Lat: 8.40 Right Ventricle TAPSE (mm): 23.00 Tricuspid Valve TR Pk Anthony: 2.39 TR Pk Grad: 23.00 RA Press: 3.00 RVSP: 26.00 Great Vessels Aorta Ao Asc: 3.00 2.1-3.4 cm Ao Arch: 3.20 Pulmonary Valve PV Pk Anthony: 0.59 Peak PV Grad: 1.00 Updated in Other Vendor System with Status of Final Guillaume Callahan MD electronically signed on 04/02/2024 2:44:50 PM with status of Final
== END ==
LOC: HO.CARD 13:15
PROVIDERS: PCP Physician Assistant; Visit Provider Internal Medicine Cardiovascular Disease
DX: Z95.2 Presence of prosthetic heart valve (principal)
CPT/HCPCS: 93306

== ENCOUNTER → 2024-04-02 13:19 | Outpatient (BNV) | payer MEDICARE, OTHER, SELFPAY | PROVIDERS: PCP Physician Assistant; Visit Provider Internal Medicine Cardiovascular Disease | DX: I34.0 Nonrheumatic mitral (valve) insufficiency (principal); I34.81 Nonrheumatic mitral (valve) annulus calcification; Z95.3 Presence of xenogenic heart valve | CPT/HCPCS: 93306 ==

== ENCOUNTER 2024-04-02 14:26 | Outpatient (AMB) | payer MEDICARE, OTHER, SELFPAY ==
--- NOTE | 2024-04-02 14:50 | A.OFFVIS_ITS ---
Intake Vital Signs 04/02/24 14:53 Height 5 ft 6 in Weight 156 lb 8 oz BMI 25.3 BP 122/60 Blood Pressure Location Lt brachial Position Sitting Pulse 74 Pulse Source Pulse Oximeter Pulse Oximetry (%) 95 Oxygen Delivery Method Room Air Intake Visit Reasons: AWV Intake Note: Patient is here for an Annual Wellness Visit. Copy And Print Associate Required: No Accompanied by: Self / Same As Patient Allergies buspirone Allergy (Intermediate, Verified 04/02/24 15:10) Rash Sulfa (Sulfonamide Antibiotics) Allergy (Intermediate, Verified 04/02/24 15:10) RASH cefuroxime Allergy (Unknown, Verified 04/02/24 15:10) Unknown garlic [GARLIC] Allergy (Unknown, Verified 04/02/24 15:10) PER H&P metronidazole [From FLAGYL] Allergy (Unknown, Verified 04/02/24 15:10) OCULAR MIGRAINES penicillamine Allergy (Unknown, Verified 04/02/24 15:10) Unknown ciprofloxacin Adverse Reaction (Intermediate, Verified 04/02/24 15:10) neuropathic pain lisinopril Adverse Reaction (Intermediate, Verified 04/02/24 15:10) Cough nitrofurantoin Adverse Reaction (Mild, Verified 04/02/24 15:10) GI side effects cefuroxime Allergy (Intermediate, Uncoded 04/02/24 15:10) wheezy cough/itch flagyl Allergy (Unknown, Uncoded 04/02/24 15:10) Unknown From KEFLEX Allergy (Unknown, Uncoded 04/02/24 15:10) RASH Metoprolol Tartrate Allergy (Unknown, Uncoded 04/02/24 15:10) Unknown Sulfacet-R Allergy (Unknown, Uncoded 04/02/24 15:10) Unknown HPI AWV HPI Details Patient is an 83-year-old female here today for an annual wellness visit. Patient has a past medical history significant for hypertension, aortic valve replacement, severe generalized anxiety disorder, anemia. Today we discussed her [place] of care. She was given a MOLST to fill out with family members Colorectal cancer screening: Done in 2022-Dr. Escobar Mammogram: Up-to-date Vaccines: Up-to-date with COVID vaccine, shingles vaccine tetanus vaccine HPI Comments History of Present Illness Details reviewed past medical history- yes reviewed surgical / hospitalization history- yes reviewed current medications- yes reviewed family history- yes home safety throw rugs? grab bars? raised toilet seat? working smoke detectors? activities of daily living difficulty bathing or showering? difficulty dressing? difficulty using the toilet? difficulty getting in and out of bed? difficulty walking? receives help from other person's with any of the above tasks? instrumental activities of daily living uses telephone - gets to place out of walking distance- go shopping for groceries- repairs own meals- does own minor home maintenance- does own laundry- does own housework- manages own money- currently takes medication- end of life planning discussed advanced directives- yes advanced directives on file? discussed wishes expressed in advanced directives. fall risk have you had any falls with injuries in the past year? have you had 2 or more falls in the past year? fall risk assessment: [facility] Medical History (Updated 04/02/24 @ 15:14 by Nick Gomez PA-C) HTN (hypertension) Cough Heart palpitations Constipation LLQ abdominal pain Anxiety Breast cancer screening Breast pain, left Elevated vitamin B12 level Neck muscle spasm Strain of neck muscle Low back pain Pubic ramus fracture Sore throat Skin tear of upper arm without complication Head injury, acute, without loss of consciousness Fall Dizziness Medication noncompliance due to cognitive impairment RLQ abdominal pain Sinusitis Flu syndrome Precordial chest pain Atypical chest pain Cold intolerance Former smoker Pulmonary nodule Abnormal lung sounds Fever Bilateral calf pain Nausea Left lower quadrant abdominal pain Dysuria Fatigue Lower extremity weakness Aortic stenosis Obstipation Dark stools Lower abdominal pain Gastroenteritis Neck pain on right side URI (upper respiratory infection) Back pain Chest pain Rhinitis Elevated BP without diagnosis of hypertension Non-rheumatic aortic stenosis Diverticulitis GERD (gastroesophageal reflux disease) Cat scratch Cat bite Epigastric discomfort Diarrhea Nausea Viral syndrome GERD (gastroesophageal reflux disease) Neuropathy Arthritis GERD (gastroesophageal reflux disease) HTN (hypertension) Irritable bowel Heart murmur Surgical History S/P TAVR (transcatheter aortic valve replacement) Hx of esophagogastroduodenoscopy Hx of colonoscopy History of tonsillectomy History of appendectomy Family History Father No problems noted. Mother No problems noted. Social History Household Members: Children Housing: House Are you a primary career development engineer to a significant other at home: No Do you presently have visiting nurse or other home services: No Alcohol intake: former Patient Tobacco Use Status: Former Tobacco user Tobacco use type: Cigarette e-Cigarette/Vaping Use: Never Used Second Hand Smoke Exposure: No Advance Directives Date on File: 09/21/23 service: No Current occupational status: retired Cognitive needs: No Hearing needs: No Vision needs: Yes (glasses) Questionnaire Medicare Wellness Checkup What is your age?: 80 or older What gender do you identify with?: female During the past 4 weeks, how much have you been bothered by emotional problems such as feeling anxious, depressed, irritable, sad or downhearted, and blue?: quite a bit During the past 4 weeks, has your physical & emotional health limited your social activities with family, friends, neighbors, or groups?: quite a bit During the past 4 weeks, how much bodily pain have you generally had?: moderate pain During the past 4 weeks, was someone available to help you if you needed & wanted help?: yes, a little During the past 4 weeks, what was the hardest physical activity you could do for at least 2 minutes?: light Can you get to places out of walking distance without help? (For eg., can you travel alone on buses, taxis or drive your car?): Yes Can you prepare your own meals?: Yes Because of any health problems, do you need the help of another person with your personal care needs such as eating, bathing, dressing or getting around the house?: No Can you handle your own money without help?: Yes During the past 4 weeks, how would you rate your health in general?: fair During the past 4 weeks how have things been going for you?: pretty bad Are you having difficulties driving your car?: no Do you always fasten your seat belt when you are in a car?: yes, usually During past 4 weeks, have you been bothered by the following: never: Sexual problems? and Problems using the telephone?, seldom: Teeth or denture problems?, sometimes: Falling or dizzy when standing up and often: Trouble eating well? Have you fallen 2 or more times in the past year?: Yes Are you afraid of falling?: Yes Are you a smoker?: no During the past 4 weeks, how many drinks of wine, beer, or other alcoholic beverages did you have?: no alcohol at all Do you exercise for about 20 minutes 3 or more times a week?: no, I usually do not exercise this much How often do you have trouble taking medicines the way you have been told to take them?: I always take medicine as prescribed How confident are you that you can control & manage most of your health problems?: not very confident What is your race?: White Mini Mental State Exam (MMSE) Orientation What is the (year) (season) (date) (day) (month)?: season and date Where are we (state) (county) (town or city) (hospital) (floor)?: [facility] Attention & Calculation (CHOOSE ONE) Spell WORLD backwards (DLROW): 5 letters Score Score: 8 Activity of Daily Living Bathing - sponge bath, tub bath or shower: receives no assistance (gets in/out by self, if usual bathing means Dressing - getting clothes from closets & drawers, including inner/outer garments & fasteners.: gets clothes & gets completely dressed without help Toileting - going to the 'toilet room' for urine/bowel elimination & cleaning self/arranging clothes: goes to toilet room, cleans self, arranges clothes w ithout help Transfer: moves in & out of bed and chair without help (may use support object) Continence: has occasional 'accidents' Feeding: feeds self without help Total Score: 0 Information obtained from: patient Using telephone: independent Traveling: needs assistance Shopping: independent Preparing meals: independent Housework: independent Taking medicine: independent Managing money: independent PHQ-9 Over the last 2 weeks, how often have you been bothered by any of the following problems? 1. Little interest or pleasure in doing things: more than half the days 2. Feeling down, depressed, or hopeless: more than half the days 3. Trouble falling or staying asleep, or sleeping too much: more than half the days 4. Feeling tired or having little energy: more than half the days 5. Poor appetite or overeating: more than half the days 6. Feeling bad about yourself - or that you are a failure or have let yourself or your family down: more than half the days 7. Trouble concentrating on things, such as reading the newspaper or watching television: more than half the days 8. Moving or speaking so slowly that other people could have noticed. Or the opposite - being so fidgety or restless that you have been moving around a lot more than usual: several days 9. Thoughts that you would be better off or of hurting yourself in some way: not at all Total score: 15 Depression Screening Interpretation: Positive Depression Screening Follow-up: Existing condition and In treatment Depression Screening Done: Yes 32191 - PHQ-9 Billing: Yes Source: Developed by Drs. Anatoliy Gavin, Peyton Hunt, Austyn Weber and colleagues, with an educational kentrell from [employer]. Physical Exam Vital Signs: Last Vital Signs Pulse 74 04/02/24 14:53 BP 122/60 04/02/24 14:53 Pulse Ox 95 04/02/24 14:53 Oxygen Delivery Method Room Air 04/02/24 14:53 BMI result Body Mass Index 25.3 HEENT Other: hearing screening whisper test- pass Eyes Other: vision screening- 20/ 20/ OS OD OU Other: urinary incontinence? yes Neuro Other: balance Romberg- normal tandem walk test- able walk-in turned test- able rise from sit to stand- within 3 seconds Assessment & Plan Assessment & Plan (1) Annual wellness visit: Code(s): Z00.00 - Encounter for general adult medical examination without abnormal fi ndings Plan: As per HPI (2) Post-menopausal: Code(s): Z78.0 - Asymptomatic menopausal state Plan: Patient willing to get repeat bone density. Did have osteoporosis on previous bone density in 2020. Orders: Orders XR DEXA axial skeleton 04/02/24 Z78.0 - Asymptomatic menopausal state Quality Reporting (2019) Depression/Bipolar (159/160/161/177) PHQ-9: Total score: 15 Coding Level of Care Code Medicare First (G0438) Diagnoses Annual wellness visit Z00.00 Post-menopausal Z78.0 CPT Codes Advance Care Planning - Time spent: 1-15 minutes, not on file ([id number]) Advance Care Planning Advance Care Planning discussion: Exists, not on file Date of discussion: 04/02/24 Forms completed: MOLST Time spent: 1-15 minutes, not on file Actual minutes spent: 5
[2024-04-02 14:53] VITALS: BP 122/60; PULSE 74; O2SAT 95; BMI 25.3
== END 2024-04-02 15:35 | disposition home or self-care (01) ==
PROVIDERS: PCP Physician Assistant; Visit Provider Physician Assistant
DX: Z00.00 Encounter for general adult medical examination without abnormal findings (principal); Z78.0 Asymptomatic menopausal state
CPT/HCPCS: 1124F; G0438; G0439

== ENCOUNTER 2024-04-11 12:02 | Outpatient (AMB) | payer MEDICARE, OTHER, SELFPAY ==
--- NOTE | 2024-04-11 12:43 | MHC.OFFWIV ---
Intake Vital Signs 04/11/24 12:44 Height 5 ft 6 in Weight 159 lb 2 oz BMI 25.7 BP 138/76 Blood Pressure Location Lt brachial Position Sitting Pulse 94 Pulse Source Pulse Oximeter Temp 98 F Temp Source Oral Pulse Oximetry (%) 98 Oxygen Delivery Method Room Air Intake Visit Reasons: EP Sore throat Intake Note: Pt is here today for possible sore throat, started 1 wk ago. Patient Tobacco Use Status: Former Tobacco user Allergies buspirone Allergy (Intermediate, Verified 04/11/24 12:47) Rash Sulfa (Sulfonamide Antibiotics) Allergy (Intermediate, Verified 04/11/24 12:47) RASH cefuroxime Allergy (Unknown, Verified 04/11/24 12:47) Unknown garlic [GARLIC] Allergy (Unknown, Verified 04/11/24 12:47) PER H&P metronidazole [From FLAGYL] Allergy (Unknown, Verified 04/11/24 12:47) OCULAR MIGRAINES penicillamine Allergy (Unknown, Verified 04/11/24 12:47) Unknown ciprofloxacin Adverse Reaction (Intermediate, Verified 04/11/24 12:47) neuropathic pain lisinopril Adverse Reaction (Intermediate, Verified 04/11/24 12:47) Cough nitrofurantoin Adverse Reaction (Mild, Verified 04/11/24 12:47) GI side effects cefuroxime Allergy (Intermediate, Uncoded 04/02/24 15:10) wheezy cough/itch flagyl Allergy (Unknown, Uncoded 04/02/24 15:10) Unknown From KEFLEX Allergy (Unknown, Uncoded 04/02/24 15:10) RASH Metoprolol Tartrate Allergy (Unknown, Uncoded 04/02/24 15:10) Unknown Sulfacet-R Allergy (Unknown, Uncoded 04/02/24 15:10) Unknown Do you need a note to return to daycare/school/sports/work: No HPI HPI Comments History of Present Illness Details Pt is a 83 yr old female c/o 7 days of increasing, sore throat, productive cough with white phlegm for 7 days. She is also complaining of some body aches and the occasional headache. She is also complaining of central lower uncomfortableness of her chest, she denies any actual chest pain, shortness of breath or wheezing. Patient states she tried taking some Prilosec for 3 days but it did not seem to help. She denies any sinus pain, head congestion, ear pain, fevers, nausea, vomiting or diarrhea. She denies any sick contacts. She states she has not felt well for a long time and she has had medical issue after medical issue for the last 9 months. [facility] Medical History (Updated 04/11/24 @ 13:12 by Janet Rojas PA-C) URI (upper respiratory infection) HTN (hypertension) Cough Heart palpitations Constipation LLQ abdominal pain Anxiety Breast cancer screening Breast pain, left Elevated vitamin B12 level Neck muscle spasm Strain of neck muscle Low back pain Pubic ramus fracture Sore throat Skin tear of upper arm without complication Head injury, acute, without loss of consciousness Fall Dizziness Medication noncompliance due to cognitive impairment RLQ abdominal pain Sinusitis Flu syndrome Precordial chest pain Atypical chest pain Cold intolerance Former smoker Pulmonary nodule Abnormal lung sounds Fever Bilateral calf pain Nausea Left lower quadrant abdominal pain Dysuria Fatigue Lower extremity weakness Aortic stenosis Obstipation Dark stools Lower abdominal pain Gastroenteritis Neck pain on right side Back pain Chest pain Rhinitis Elevated BP without diagnosis of hypertension Non-rheumatic aortic stenosis Diverticulitis GERD (gastroesophageal reflux disease) Cat scratch Cat bite Epigastric discomfort Diarrhea Nausea Viral syndrome GERD (gastroesophageal reflux disease) Neuropathy Arthritis GERD (gastroesophageal reflux disease) HTN (hypertension) Irritable bowel Heart murmur Surgical History S/P TAVR (transcatheter aortic valve replacement) Hx of esophagogastroduodenoscopy Hx of colonoscopy History of tonsillectomy History of appendectomy Family History Father No problems noted. Mother No problems noted. Social History Household Members: Children Housing: House Are you a primary healthcare financial analyst to a significant other at home: No Do you presently have visiting nurse or other home services: No Alcohol intake: former Patient Tobacco Use Status: Former Tobacco user Tobacco use type: Cigarette e-Cigarette/Vaping Use: Never Used Second Hand Smoke Exposure: No Advance Directives Date on File: 09/21/23 service: No Current occupational status: retired Cognitive needs: No Hearing needs: No Vision needs: Yes (glasses) Review of Systems Const All systems reviewed & are unremarkable except as noted in HPI and below Physical Exam Vital Signs: Last Vital Signs Temp 98 F 04/11/24 12:44 Pulse 94 04/11/24 12:44 BP 138/76 04/11/24 12:44 Pulse Ox 98 04/11/24 12:44 Oxygen Delivery Method Room Air 04/11/24 12:44 BMI result Body Mass Index 25.7 Const General: cooperative, healthy appearing, comfortable and no acute distress Orientation/consciousness: patient oriented x3 Limitations: no limitations HEENT Head: Yes normal to inspection Ears: hearing grossly normal bilaterally, external ears normal and TM's normal bilaterally General nose exam: Normal external nose present, Normal nares present and No nasal discharge present Face and sinus: Yes normal facial exam and Yes sinuses nontender Mouth: Normal oral and palatal mucosa present and moist mucous membranes Throat: Yes tonsils normal, Yes uvula midline and Yes posterior oropharynx abnormal (Erythema) Eyes General: appearance normal, both eyes and all related structures Neck Neck: Yes normal visual inspection Resp Effort & Inspection: normal respiratory effort, able to speak in complete sentences, no respiratory distress, not tachypneic, no tripod positioning and no use of accessory muscles Auscultation: clear to auscultation bilaterally Cardio Rate: regular rate Rhythm: regular rhythm Heart sounds: normal S1 and S2 Skin General skin exam: no rashes or lesions noted Neuro General: patient oriented x3 Extrem General: Yes normal to inspection and Yes no clubbing, cyanosis or edema Assessment & Plan Assessment & Plan (1) URI (upper respiratory infection): Code(s): J06.9 - Acute upper respiratory infection, unspecified Qualifiers: URI type: unspecified viral URI Qualified Code(s): J06.9 - Acute upper respiratory infection, unspecified Plan: VSS, PE unremarkable. Strep negative. sent flu/covid/rsv. Recommended [id number] medications to treat her symptoms as well as Tylenol and hot tea with honey. Also sent her PCP a note for close follow-up for her generalized unwell feeling over the last 9 months. Plan see above Orders: Orders SARS-CoV2/FLU/RSV Today J06.9 - Acute upper respiratory infection, unspecified Coding Level of Care Code Est Pt Level 3 (07395) Diagnoses Viral upper respiratory tract infection J06.9 URI type: unspecified viral URI
[2024-04-11 12:44] VITALS: BP 138/76; PULSE 94; TEMP 36.6; O2SAT 98; BMI 25.7
== END 2024-04-11 13:07 | disposition home or self-care (01) ==
PROVIDERS: PCP Physician Assistant; Visit Provider Physician Assistant
DX: J06.9 Acute upper respiratory infection, unspecified (principal); J02.9 Acute pharyngitis, unspecified
CPT/HCPCS: 87880; 99213

== ENCOUNTER 2024-04-11 13:05 | Outpatient (REF) | payer MEDICARE, OTHER, SELFPAY ==
[2024-04-11 17:35] LABS: Influenza A PCR NEGATIVE (Negative); Influenza B PCR NEGATIVE (Negative); Resp Syncy Virus RNA Qual PCR NEGATIVE (Negative); SARS COV2 PCR INHOUSE NEGATIVE (Negative)
== END 2024-04-11 13:06 | disposition home or self-care (01) ==
LOC: HO.LAB 13:05
PROVIDERS: Visit Provider Physician Assistant
DX: Z13.9 Encounter for screening, unspecified (principal)
CPT/HCPCS: 0241U

== ENCOUNTER 2024-04-12 13:02 | Outpatient (AMB) | payer MEDICARE, OTHER, SELFPAY ==
--- NOTE | 2024-04-12 13:08 | MHC.OFFVIS ---
Intake Visit Reasons: recurrent UTI Intake Note: New Patient presents for initial visit for recurrent uti Urology Medications: none Blood Thinner: aspirin, clopidogrel PVR: 30ml's Er Medical Technician Required: No Accompanied by: Self / Same As Patient Allergies buspirone Allergy (Intermediate, Verified 04/12/24 13:59) Rash Sulfa (Sulfonamide Antibiotics) Allergy (Intermediate, Verified 04/12/24 13:59) RASH cefuroxime Allergy (Unknown, Verified 04/12/24 13:59) Unknown garlic [GARLIC] Allergy (Unknown, Verified 04/12/24 13:59) PER H&P metronidazole [From FLAGYL] Allergy (Unknown, Verified 04/12/24 13:59) OCULAR MIGRAINES penicillamine Allergy (Unknown, Verified 04/12/24 13:59) Unknown ciprofloxacin Adverse Reaction (Intermediate, Verified 04/12/24 13:59) neuropathic pain lisinopril Adverse Reaction (Intermediate, Verified 04/12/24 13:59) Cough nitrofurantoin Adverse Reaction (Mild, Verified 04/12/24 13:59) GI side effects cefuroxime Allergy (Intermediate, Uncoded 04/12/24 13:59) wheezy cough/itch flagyl Allergy (Unknown, Uncoded 04/12/24 13:59) Unknown From KEFLEX Allergy (Unknown, Uncoded 04/12/24 13:59) RASH Metoprolol Tartrate Allergy (Unknown, Uncoded 04/12/24 13:59) Unknown Sulfacet-R Allergy (Unknown, Uncoded 04/12/24 13:59) Unknown Medication List - Last Reconciled 04/12/24 by SOWMYA Hendrickson-JENNIFER acetaminophen (Tylenol) 325 mg PO Q4H PRN alprazolam 0.25 mg PO BID aspirin 81 mg PO QAM cholecalciferol (vitamin D3) (Vitamin D3) 50 mcg PO DAILY citalopram 20 mg PO BEDTIME 90 days clopidogrel 75 mg PO QAM folic acid 0.4 mg PO DAILY losartan 25 mg PO DAILY 90 days pantoprazole 40 mg PO QAM HPI Comments Details: Bella is a very pleasant 83-year-old female patient of Dr. Gomez. She has a past medical history of hypertension, constipation, anxiety, former smoker, GERD, diverticulitis, hypertension, irritable bowel syndrome, and heart murmur. In discussion with the patient today she reports sometime around [place] time of last year she had underwent a TAVR procedure at which time she also had multiple strokes and has been with memory impairment since. She discusses over the last 6 months to be having ongoing recurrent urinary tract infections. In review of patient's chart it appears urine culture /24 noted E coli, 5/24 Enterococcus faecalis, 6/24 E coli. When asked she does report a longstanding history of constipation and poor water intake. She discusses feeling lower urinary bladder pressure/discomfort. She otherwise denies urinary urgency, urinary frequency, nocturia, hematuria, dysuria, foul smelling urine, changes to urinary stream, flank pain, fever, and or chills. She does report a longstanding history of stress incontinence however does not find this bothersome. She reports utilizing 1-3 Natalie pads per day. Unable to obtain urine for urinalysis today however PVR 0 mL. Discussed at length potential causes of recurrent urinary tract infections as well as further workup to include retroperitoneal ultrasound at this time. Discussed possible near future in office cystoscopy if symptoms arise, persist and or worsen. She otherwise offers no other issues or concerns at this time. [facility] Medical History URI (upper respiratory infection) HTN (hypertension) Cough Heart palpitations Constipation LLQ abdominal pain Anxiety Breast cancer screening Breast pain, left Elevated vitamin B12 level Neck muscle spasm Strain of neck muscle Low back pain Pubic ramus fracture Sore throat Skin tear of upper arm without complication Head injury, acute, without loss of consciousness Fall Dizziness Medication noncompliance due to cognitive impairment RLQ abdominal pain Sinusitis Flu syndrome Precordial chest pain Atypical chest pain Cold intolerance Former smoker Pulmonary nodule Abnormal lung sounds Fever Bilateral calf pain Nausea Left lower quadrant abdominal pain Dysuria Fatigue Lower extremity weakness Aortic stenosis Obstipation Dark stools Lower abdominal pain Gastroenteritis Neck pain on right side Back pain Chest pain Rhinitis Elevated BP without diagnosis of hypertension Non-rheumatic aortic stenosis Diverticulitis GERD (gastroesophageal reflux disease) Cat scratch Cat bite Epigastric discomfort Diarrhea Nausea Viral syndrome GERD (gastroesophageal reflux disease) Neuropathy Arthritis GERD (gastroesophageal reflux disease) HTN (hypertension) Irritable bowel Heart murmur Surgical History S/P TAVR (transcatheter aortic valve replacement) Hx of esophagogastroduodenoscopy Hx of colonoscopy History of tonsillectomy History of appendectomy Family History Father No problems noted. Mother No problems noted. Social History Household Members: Children Housing: House Are you a primary animal care taker to a significant other at home: No Do you presently have visiting nurse or other home services: No Alcohol intake: former Patient Tobacco Use Status: Former Tobacco user Tobacco use type: Cigarette e-Cigarette/Vaping Use: Never Used Second Hand Smoke Exposure: No Advance Directives Date on File: 09/21/23 service: No Current occupational status: retired Cognitive needs: No Hearing needs: No Vision needs: Yes (glasses) Review of Systems Eyes Reports no additional complaints ENT Reports no additional complaints Card Reports as per HPI Resp Reports no additional complaints GI Reports as per HPI Reports as per HPI Musc Reports no additional complaints Neuro Reports as per HPI Psych Reports no additional complaints Endo Reports no additional complaints Pradip/Lymph Reports no additional complaints Aller/Immun Reports no additional complaints Physical Exam Const General: cooperative, healthy appearing, comfortable, no acute distress, well developed, alert and awake Orientation/consciousness: patient oriented x3 Limitations: no limitations HEENT Head: Yes normal to inspection, Yes normocephalic and Yes atraumatic Ears: hearing grossly normal bilaterally Eyes General: appearance normal, both eyes and all related structures Neck Neck: Yes normal visual inspection and Yes trachea midline Chest Chest palpation & inspection: normal inspection of the chest Resp Effort & Inspection: normal respiratory effort and able to speak in complete sentences Cardio Rate: regular rate GI Inspection: Yes normal to inspection General: Yes no CVA tenderness Back/Spine/Pelvis Back: no CVA tenderness Skin General skin exam: no rashes or lesions noted Neuro General: patient oriented x3 Extrem General: Yes normal to inspection Psych Appearance: grossly normal and well kempt Mental Status: mental status grossly normal Speech and movement: Normal speech and movement present and Clear speech present Affect: normal affect Attitude: cooperative Thought process: Normal thought process present Thought content: Normal thought content present Insight: Fair insight present (Psych) Judgement: Fair judgement present (Psych) Office Procedures Post Void Residual Post Residual Void Post Void Residual (PVR): 30 [id number] Void Residual by ultrasound Assessment & Plan Assessment & Plan (1) Recurrent UTI: Code(s): N39.0 - Urinary tract infection, site not specified Category: Medical (2) Sensation of pressure in bladder area: Code(s): R39.89 - Other symptoms and signs involving the genitourinary system Category: Medical Plan Discussed UTI prevention with D mannose supplement, vitamin-C, increasing fluid intake, behavioral therapy with timed voiding, perineal hygiene and postcoital voiding, and management of constipation with stool softeners and increased fiber intake. PVR 0 mL. Will obtain retroperitoneal ultrasound for further assessment evaluation. Start Estrace cream as discussed and prescribed. Discussed bladder triggers/irritants Follow-up in 1-3 months with imaging to be completed prior and PVR at next office visit; or sooner with any issues, concerns, and or questions. Orders: Orders US retroperitoneal comp Today N39.0 - Urinary tract infection, site not specified AMB Post Void Residual by ultrasound Today N39.0 - Urinary tract infection, site not specified Medications: New estradiol 0.01%(0.1mg/gram) pea sized amount to urethra daily times 1 month then 3 times per week thereafter 42.5 grams 1RF 30 days Patient Instructions: The patient had an opportunity to ask questions regarding the treatment plan. All questions were answered. Physical exam, labs, and imaging were discussed and reviewed in detail. As well as risks, benefits, and discussion of treatment choices. No major barriers to understanding were identified. The patient expressed understanding and agreement with the above treatment plan. The patient was made aware they should contact our office by phone for worsening of their current condition, the appearance of new symptoms, or with any questions or concerns. Compliance is encouraged with any medications and follow up testing that is ordered. It is a privilege to be allowed the opportunity to participate in? your urological care.? Again, if you have any questions or concerns If you have any questions or concerns please do not hesitate to contact me. The office is [phone]. This note is constructed using voice recognition software. While every effort has been made to ensure accuracy manager pathology errors may have been included. Yours sincerely, GUADALUPE Hendrickson Coding Level of Care Code New Pt Level 4 (60438) Diagnoses Recurrent UTI N39.0 Sensation of pressure in bladder area R39.89 CPT Codes Post Residual Void - PVR CPT Code: 62493-[id number] Void Residual by ultrasound ([id number])
== END 2024-04-12 14:07 | disposition home or self-care (01) ==
PROVIDERS: PCP Physician Assistant; Visit Provider Nurse Practitioner Family
DX: N39.0 Urinary tract infection, site not specified (principal); R39.89 Other symptoms and signs involving the genitourinary system
CPT/HCPCS: 99204; 99214

== ENCOUNTER → 2024-04-12 13:02 | Outpatient (BNVA) | payer MEDICARE, OTHER, SELFPAY | PROVIDERS: PCP Physician Assistant; Visit Provider Nurse Practitioner Family | DX: N39.0 Urinary tract infection, site not specified (principal); R39.89 Other symptoms and signs involving the genitourinary system | CPT/HCPCS: 51798; 99202 ==

== ENCOUNTER 2024-04-14 09:44 | Emergency (ER) | payer MEDICARE, OTHER, SELFPAY ==
[2024-04-14 09:49] VITALS: BP 132/70; PULSE 78; RESP 20; TEMP 36.1; O2SAT 96; BMI 25.0
--- NOTE | 2024-04-14 10:10 | ED_ITS ---
HPI - General Adult General Chief complaint: Extremity Injury, Lower Stated complaint: bilateral leg swelling Time Seen by Provider: 04/14/24 09:59 Source: patient Mode of arrival: ambulatory Limitations: no limitations History of Present Illness HPI narrative: Patient is an 83-year-old female past medical history of anxiety, depression, memory impairment, hypertension, aortic stenosis, embolic stroke, diverticul itis, GERD, IBS who presents emergency department for evaluation of pruritic redness to proximal medial lower leg bilaterally. Onset 3 days ago. Denies pain. No fevers or chills. No chest pain or shortness of breath Related Data Home Medications ?Medication ?Instructions ?Recorded ?Confirmed cholecalciferol (vitamin D3) 50 50 mcg PO DAILY 11/23/23 03/28/24 mcg (2,000 unit) tablet (Vitamin D3) clopidogrel 75 mg tablet 75 mg PO QAM 11/23/23 03/28/24 folic acid 400 mcg tablet 0.4 mg PO DAILY 11/23/23 03/28/24 alprazolam 0.25 mg tablet 0.25 mg PO BID 03/28/24 03/28/24 Previous Rx's ?Medication ?Instructions ?Recorded citalopram 20 mg tablet 20 mg PO BEDTIME 90 days #90 tabs 10/23/23 acetaminophen 325 mg capsule 325 mg PO Q4H PRN pain #30 caps 12/17/23 (Tylenol) aspirin 81 mg tablet,delayed 81 mg PO QAM #90 tabs 02/05/24 release pantoprazole 40 mg tablet,delayed 40 mg PO QAM #30 tabs 02/18/24 release losartan 25 mg tablet 25 mg PO DAILY 90 days #90 tabs 02/28/24 estradiol 0.01% (0.1 mg/gram) See Rx Instructions vaginal 3XW 30 04/12/24 vaginal cream days #42.5 grams hydrocortisone 2.5 % topical cream 1 appl topical BID PRN itching #20 04/14/24 grams Allergies Allergy/AdvReac Type Severity Reaction Status Date / Time buspirone Allergy Intermediate Rash Verified 04/14/24 09:51 Sulfa (Sulfonamide Allergy Intermediate RASH Verified 04/14/24 09:51 Antibiotics) cefuroxime Allergy Unknown Unknown Verified 04/14/24 09:51 garlic [GARLIC] Allergy Unknown PER H&P Verified 04/14/24 09:51 metronidazole [From FLAGYL] Allergy Unknown OCULAR Verified 04/14/24 09:51 MIGRAINES penicillamine Allergy Unknown Unknown Verified 04/14/24 09:51 ciprofloxacin AdvReac Intermediate neuropathic Verified 04/14/24 09:51 pain lisinopril AdvReac Intermediate Cough Verified 04/14/24 09:51 nitrofurantoin AdvReac Mild GI side Verified 04/14/24 09:51 effects cefuroxime Allergy Intermediate wheezy Uncoded 04/14/24 09:51 cough/itch flagyl Allergy Unknown Unknown Uncoded 04/14/24 09:51 From KEFLEX Allergy Unknown RASH Uncoded 04/14/24 09:51 Metoprolol Tartrate Allergy Unknown Unknown Uncoded 04/14/24 09:51 Sulfacet-R Allergy Unknown Unknown Uncoded 04/14/24 09:51 Review of Systems Review of Systems: Yes all other systems are reviewed and are negative [facility] Past Medical History Attestation statement: The following information was validated with the patient. Source: old records reviewed Medical History URI (upper respiratory infection) HTN (hypertension) Cough Heart palpitations Constipation LLQ abdominal pain Anxiety Breast cancer screening Breast pain, left Elevated vitamin B12 level Neck muscle spasm Strain of neck muscle Low back pain Pubic ramus fracture Sore throat Skin tear of upper arm without complication Head injury, acute, without loss of consciousness Fall Dizziness Medication noncompliance due to cognitive impairment RLQ abdominal pain Sinusitis Flu syndrome Precordial chest pain Atypical chest pain Cold intolerance Former smoker Pulmonary nodule Abnormal lung sounds Fever Bilateral calf pain Nausea Left lower quadrant abdominal pain Dysuria Fatigue Lower extremity weakness Aortic stenosis Obstipation Dark stools Lower abdominal pain Gastroenteritis Neck pain on right side Back pain Chest pain Rhinitis Elevated BP without diagnosis of hypertension Non-rheumatic aortic stenosis Diverticulitis GERD (gastroesophageal reflux disease) Cat scratch Cat bite Epigastric discomfort Diarrhea Nausea Viral syndrome GERD (gastroesophageal reflux disease) Neuropathy Arthritis GERD (gastroesophageal reflux disease) HTN (hypertension) Irritable bowel Heart murmur Surgical History S/P TAVR (transcatheter aortic valve replacement) Hx of esophagogastroduodenoscopy Hx of colonoscopy History of tonsillectomy History of appendectomy Family History Family History Father No problems noted. Mother No problems noted. Social History Social History Household Members: Children Housing: House Are you a primary medicare specialist to a significant other at home: No Do you presently have visiting nurse or other home services: No Alcohol intake: former Patient Tobacco Use Status: Former Tobacco user Tobacco use type: Cigarette e-Cigarette/Vaping Use: Never Used Second Hand Smoke Exposure: No Advance Directives: Yes Advance Directives on File: Yes Advance Directives Date on File: 09/21/23 Do you have a plan to hurt others: No Plan service: No Current occupational status: retired Cognitive needs: No Hearing needs: No Vision needs: Yes (glasses) Physical Exam ED Vital Signs: Vital Signs - 24 hr 04/14/24 09:49 Temperature 96.9 F Pulse Rate 78 Respiratory Rate 20 Blood Pressure 132/70 Pulse Oximetry 96 Oxygen Delivery Method Room Air BMI result Body Mass Index 25.0 Appearance: Alert.?Oriented to person, place and time. No acute distress.?Normal affect. Eyes: Pupils equal, round and reactive to light.? ENT: Pharynx normal.?? Neck: Normal inspection.? Neck supple.?? CVS: Heart sounds normal. Normal heart rate and rhythm.? Pulses normal.?? Respiratory: No respiratory distress.? Lung sounds clear to auscultation bilaterally?? Skin: Skin warm and dry.? Normal skin color.? Bilateral proximal medial lower knee with minimally erythematous patch and superficial linear abrasions? Extremities: No lower extremity edema.? No calf ttp?+DP/PT pulse bilaterally Neuro: Moves all extremities spontaneously. Sensation intact bilaterally. Medical Decision Making Medical Decision Making MDM Narrative: Patient is an 83-year-old female past medical history of anxiety, depression, memory impairment, hypertension, aortic stenosis, embolic stroke, diverticulitis, GERD, IBS who presents emergency department for evaluation of bilateral pruritic patches to inferior medial knee as per physical exam portion of this note. They are superficial linear abrasions over this area consistent with scratch rios. The area is not warm or hot to touch, unlikely acute cellulitis. No associated calf pain, lymphadenopathy to suggest DVT/facial thrombophlebitis. The locations are nearly symmetrical, concern for potential contact dermatitis of the leg. Will treat at this time with a course of hydrocortisone and advised outpatient follow-up with the primary care doctor. Discussed worrisome signs and symptoms that would warrant re-evaluation in the emergency department. Differential Diagnosis Differential Diagnoses: The differential diagnosis associated with the presentation includes (See narrative above) External Record Review External record reviewed: Outpatient record Tests considered The following testing was considered but not selected: See narrative above; ultrasound deferred Prescription Management I considered prescription management with: Other (See narrative above) Discharge Plan Discharge Clinical Impression: Itchy skin Patient Disposition: Home, Self-Care Instructions: Itchy Skin (ED) Prescriptions: New hydrocortisone 2.5 % cream 1 appl topical BID PRN (Reason: itching) Qty: 20 0RF No Action citalopram 20 mg tablet 20 mg PO BEDTIME 90 Days Qty: 90 1RF aspirin 81 mg tablet,delayed release (DR/EC) 81 mg PO QAM Qty: 90 0RF pantoprazole 40 mg tablet,delayed release (DR/EC) 40 mg PO QAM Qty: 30 1RF losartan 25 mg tablet 25 mg PO DAILY 90 Days Qty: 90 1RF clopidogrel 75 mg tablet 75 mg PO QAM folic acid 400 mcg Tablet 0.4 mg PO DAILY cholecalciferol (vitamin D3) [Vitamin D3] 50 mcg (2,000 unit) Tablet 50 mcg PO DAILY acetaminophen [Tylenol] 325 mg capsule 325 mg PO Q4H PRN (Reason: pain) Qty: 30 0RF alprazolam 0.25 mg Tablet 0.25 mg PO BID estradiol 0.01 % (0.1 mg/gram) cream See Rx Instructions vaginal 3XW 30 Days Qty: 42.5 1RF Rx Instructions: pea sized amount to urethra daily times 1 month then 3 times per week thereaf ter Referrals: Nick Gomez PA-C [Primary Care Provider] - Print Language: Romansh
--- NOTE | 2024-04-14 10:32 | PC.NURSE ---
pt a&ox3, pt upset with provider as she only is prescribing hydrocortisone cream, pt wishing to stay overnight in the hospital for her itchiness. pt has stated her legs itch and has some notable raised areas to bilateral legs where she has been scratching. this nurse suggested that she picking tech the cream and use it to see if it will help.
[2024-04-14 10:33] VITALS: BP 128/76; PULSE 73; RESP 18; TEMP 36.2; O2SAT 96
== END 2024-04-14 10:33 | disposition home or self-care (01) ==
PROVIDERS: Emergency Provider Emergency Medicine; PCP Physician Assistant
DX: R60.0 Localized edema (principal); Z79.899 Other long term (current) drug therapy; Z87.891 Personal history of nicotine dependence
CPT/HCPCS: 99282

== ENCOUNTER 2024-04-15 12:13 | Outpatient (REF) | payer MEDICARE, OTHER, SELFPAY ==
[2024-04-15 12:19] LABS: Appearance Urine Clear; Color Urine Yellow; Glucose Urine UA Negative (Negative); Leukocyte Esterase Urine Negative (Negative); Nitrite Urine Negative (Negative); Specific Gravity - Urine 1.015 (1.005-1.025); Urine Blood Negative (Negative); Urine Ketones Negative (Negative); Urine Protein Negative (Neg-Trace)
== END 2024-04-15 12:14 | disposition home or self-care (01) ==
LOC: HO.LNP 12:13
PROVIDERS: Visit Provider Physician Assistant
DX: R30.0 Dysuria (principal); N30.00 Acute cystitis without hematuria
CPT/HCPCS: 81003

== ENCOUNTER 2024-04-17 13:02 | Outpatient (AMB) | payer MEDICARE, OTHER, SELFPAY ==
--- NOTE | 2024-04-17 13:19 | MHC.OFFWIV ---
Intake Vital Signs 04/17/24 13:20 Height 5 ft 6 in Weight 155 lb BMI 25.0 BP 100/60 Blood Pressure Location Rt brachial Position Sitting Pulse 94 Pulse Source Pulse Oximeter Temp 98.5 F Temp Source Oral Pulse Oximetry (%) 95 Oxygen Delivery Method Room Air Intake Visit Reasons: Nausea, Tired, Hot, Intake Note: pt c/o nausea, fatigue, hot sensation. No vomiting, no diarrhea Patient Tobacco Use Status: Former Tobacco user Allergies buspirone Allergy (Intermediate, Verified 04/17/24 13:19) Rash Sulfa (Sulfonamide Antibiotics) Allergy (Intermediate, Verified 04/17/24 13:19) RASH cefuroxime Allergy (Unknown, Verified 04/17/24 13:19) Unknown garlic [GARLIC] Allergy (Unknown, Verified 04/17/24 13:19) PER H&P metronidazole [From FLAGYL] Allergy (Unknown, Verified 04/17/24 13:19) OCULAR MIGRAINES penicillamine Allergy (Unknown, Verified 04/17/24 13:19) Unknown ciprofloxacin Adverse Reaction (Intermediate, Verified 04/17/24 13:19) neuropathic pain lisinopril Adverse Reaction (Intermediate, Verified 04/17/24 13:19) Cough nitrofurantoin Adverse Reaction (Mild, Verified 04/17/24 13:19) GI side effects cefuroxime Allergy (Intermediate, Uncoded 04/17/24 13:19) wheezy cough/itch flagyl Allergy (Unknown, Uncoded 04/17/24 13:19) Unknown From KEFLEX Allergy (Unknown, Uncoded 04/17/24 13:19) RASH Metoprolol Tartrate Allergy (Unknown, Uncoded 04/17/24 13:19) Unknown Sulfacet-R Allergy (Unknown, Uncoded 04/17/24 13:19) Unknown Do you need a note to return to daycare/school/sports/work: No HPI HPI Comments History of Present Illness Details Patient is an 83-year-old female complaining of few days of nausea but no vomiting, feeling hot and cold but no measured temperature, burning with urination and some lower abdominal pain. She denies any blood in her urine. She states she overall feels very fatigued but has been for quite some time now. She does have a follow up with her PCP in a week regarding that issue. [facility] Medical History URI (upper respiratory infection) HTN (hypertension) Cough Heart palpitations Constipation LLQ abdominal pain Anxiety Breast cancer screening Breast pain, left Elevated vitamin B12 level Neck muscle spasm Strain of neck muscle Low back pain Pubic ramus fracture Sore throat Skin tear of upper arm without complication Head injury, acute, without loss of consciousness Fall Dizziness Medication noncompliance due to cognitive impairment RLQ abdominal pain Sinusitis Flu syndrome Precordial chest pain Atypical chest pain Cold intolerance Former smoker Pulmonary nodule Abnormal lung sounds Fever Bilateral calf pain Nausea Left lower quadrant abdominal pain Dysuria Fatigue Lower extremity weakness Aortic stenosis Obstipation Dark stools Lower abdominal pain Gastroenteritis Neck pain on right side Back pain Chest pain Rhinitis Elevated BP without diagnosis of hypertension Non-rheumatic aortic stenosis Diverticulitis GERD (gastroesophageal reflux disease) Cat scratch Cat bite Epigastric discomfort Diarrhea Nausea Viral syndrome GERD (gastroesophageal reflux disease) Neuropathy Arthritis GERD (gastroesophageal reflux disease) HTN (hypertension) Irritable bowel Heart murmur Surgical History S/P TAVR (transcatheter aortic valve replacement) Hx of esophagogastroduodenoscopy Hx of colonoscopy History of tonsillectomy History of appendectomy Family History Father No problems noted. Mother No problems noted. Social History Household Members: Children Housing: House Are you a primary child day care center worker to a significant other at home: No Do you presently have visiting nurse or other home services: No Alcohol intake: former Patient Tobacco Use Status: Former Tobacco user Tobacco use type: Cigarette e-Cigarette/Vaping Use: Never Used Second Hand Smoke Exposure: No Advance Directives Date on File: 09/21/23 service: No Current occupational status: retired Cognitive needs: No Hearing needs: No Vision needs: Yes (glasses) Review of Systems Const All systems reviewed & are unremarkable except as noted in HPI and below Physical Exam Vital Signs: Last Vital Signs Temp 98.5 F 04/17/24 13:20 Pulse 94 04/17/24 13:20 BP 100/60 04/17/24 13:20 Pulse Ox 95 04/17/24 13:20 Oxygen Delivery Method Room Air 04/17/24 13:20 BMI result Body Mass Index 25.0 Const General: cooperative, healthy appearing, comfortable, no acute distress and well developed Orientation/consciousness: patient oriented x3 Limitations: no limitations HEENT Head: Yes normal to inspection Ears: hearing grossly normal bilaterally General nose exam: Normal external nose present Face and sinus: Yes normal facial exam Eyes General: appearance normal, both eyes and all related structures Neck Neck: Yes normal visual inspection and Yes full ROM Resp Effort & Inspection: normal respiratory effort and able to speak in complete sentences GI Inspection: Yes normal to inspection Palpation (GI): Soft to palpation and Tenderness to palpation present (GI) suprapubicly Skin General skin exam: no rashes or lesions noted Neuro General: patient oriented x3 Extrem General: Yes normal to inspection Assessment & Plan Assessment & Plan (1) Urinary tract infection: Code(s): N39.0 - Urinary tract infection, site not specified Qualifiers: Urinary tract infection type: acute cystitis Hematuria presence: without hematuria Qualified Code(s): N30.00 - Acute cystitis without hematuria Plan: Patient unable to produce a urine sample in office, we will treat based on her symptoms. However, patient has limited options due to her many allergies. I will treat with Macrobid as GI side effects are not a true allergic reaction and there is really nothing else to prescribe, as she is allergic to sulfa, penicillin, cephalosporins and fluoroquinolones. Plan see above Medications: New nitrofurantoin monohyd/m-cryst 100 mg (Macrobid) must administer with a meal/food 100 mg PO Q12H 5 days 10 caps 0RF Coding Level of Care Code Est Pt Level 3 (04513) Diagnoses Acute cystitis without hematuria N30.00 Urinary tract infection type: acute cystitis Hematuria presence: without hematuria
[2024-04-17 13:20] VITALS: BP 100/60; PULSE 94; TEMP 36.9; O2SAT 95; BMI 25.0
== END 2024-04-17 14:02 | disposition home or self-care (01) ==
PROVIDERS: PCP Physician Assistant; Visit Provider Physician Assistant
DX: N30.00 Acute cystitis without hematuria (principal)
CPT/HCPCS: 99213

== ENCOUNTER 2024-04-22 17:02 | Emergency (ER) | payer MEDICARE, OTHER, SELFPAY ==
--- NOTE | ~2024-04-22 | XR_ITS ---
EXAMINATION: XR CHEST CLINICAL INFORMATION: Cough. COMPARISON: None available. TECHNIQUE: 2 views of the chest were obtained. FINDINGS: The lungs are hyperinflated but clear of acute process. Heart size and pulmonary vascularity is normal. There is aortic valve stent in place No gross bony abnormality seen. XR/XR chest 2V IMPRESSION: Hyperinflated lungs without acute process.
--- NOTE | ~2024-04-22 | CT_ITS ---
EXAMINATION: CT head/brain wo IV con CLINICAL INFORMATION: Reason for Exam R sided headache severe COMPARISON: CT head 03/27/2024 TECHNIQUE: Contiguous axial imaging was performed from the skull base to vertex without intravenous contrast. Sagittal and coronal reformatted images were obtained. This CT examination was performed using dose optimization techniques as appropriate, variously including the following: * Automated exposure control * Adjustment of mA and/or kV according to patient size (this includes techniques or standardized protocols for targeted exams where dose is matched to indication/reason for exam; i.e. extremities or head) Use of iterative reconstruction technique DLP: 709 mGy-cm FINDINGS: There is no evidence of acute intracranial hemorrhage. No mass-effect or ventricular shift is noted. No acute, territorial loss of damico-white differentiation. Dilated perivascular spaces versus chronic areas of lacunar infarction along the inferior right greater left basal ganglia. Ventricular megaly which is out of proportion to sulcal prominence with sulcal crowding at the cerebral vertex. Confluent periventricular and subcortical white matter hypodensity is nonspecific but likely represents chronic microvascular ischemic change. Biparietal osseous thinning. No depressed calvarial fracture. Bilateral intraocular lens replacements.A scattered paranasal sinus polypoid mucosal thickening. Intracranial atherosclerotic calcification is noted. The mastoid air cells are clear. CT/CT head/brain wo IV con IMPRESSION: No acute intracranial hemorrhage or territorial loss of damico-white differentiation. Redemonstrated ventriculomegaly with findings suggestive of normal pressure hydrocephalus. Clinical correlation is again recommended. Severe chronic microvascular ischemic change.
--- NOTE | 2024-04-22 18:09 | ED.HA ---
HPI - Headache General Chief Complaint: Headache Stated Complaint: headache Time Seen by Provider: 04/23/24 00:03 Source: patient Mode of arrival: ambulatory Limitations: no limitations History of Present Illness ED Provider: RENÉ TRIPATHI Narrative: 83 yo female with PMH of HTN, anxiety, UTI, s/p TAVR, COPD, CVA, vertigo, IBS, not on thinners does take plavix presents with 2 days of intermittent sharp shooting R sided headache from parietal scalp down to neck comes and goes woke her from sleep. No fevers, vomiting, no URI symptoms. No precipitating event she can think of. This has never happened before. Has swollen lymph node R neck. MD elicited complaint: headache Onset (ago): day(s) (2) Onset description: gradually Location: right and temporal Severity: moderate Quality & Timing: sharp and intermittent Exacerbating factors: other (palpation) Relieving factors: nothing Context: occurred at rest Associated symptoms: other (swollen lymph node R neck, hot flash) Treatments prior to arrival: none Related Data Home Medications ?Medication ?Instructions ?Recorded ?Confirmed clopidogrel 75 mg tablet 75 mg PO QAM 11/23/23 03/28/24 folic acid 400 mcg tablet 0.4 mg PO DAILY 11/23/23 03/28/24 alprazolam 0.25 mg tablet 0.25 mg PO BID 03/28/24 03/28/24 Previous Rx's ?Medication ?Instructions ?Recorded citalopram 20 mg tablet 20 mg PO BEDTIME 90 days #90 tabs 10/23/23 acetaminophen 325 mg capsule 325 mg PO Q4H PRN pain #30 caps 12/17/23 (Tylenol) losartan 25 mg tablet 25 mg PO DAILY 90 days #90 tabs 02/28/24 estradiol 0.01% (0.1 mg/gram) See Rx Instructions vaginal 3XW 30 04/12/24 vaginal cream days #42.5 grams hydrocortisone 2.5 % topical cream 1 appl topical BID PRN itching #20 04/14/24 grams mirabegron 25 mg tablet,extended 25 mg PO DAILY 30 days #30 tabs 04/16/24 release 24 hr (Myrbetriq) aspirin 81 mg tablet,delayed 81 mg PO QAM #90 tabs 04/17/24 release cholecalciferol (vitamin D3) 50 50 mcg PO DAILY #30 tabs 04/17/24 mcg (2,000 unit) tablet (Vitamin D3) nitrofurantoin 100 mg PO Q12H 5 days #10 caps 04/17/24 monohydrate/macrocrystals 100 mg capsule (Macrobid) pantoprazole 40 mg tablet,delayed 40 mg PO QAM #30 tabs 04/17/24 release azithromycin 250 mg tablet See Rx Instructions PO .COMPLEX #6 04/23/24 tabs Allergies Allergy/AdvReac Type Severity Reaction Status Date / Time buspirone Allergy Intermediate Rash Verified 04/22/24 18:10 Sulfa (Sulfonamide Allergy Intermediate RASH Verified 04/22/24 18:10 Antibiotics) cefuroxime Allergy Unknown Unknown Verified 04/22/24 18:10 garlic [GARLIC] Allergy Unknown PER H&P Verified 04/22/24 18:10 metronidazole [From FLAGYL] Allergy Unknown OCULAR Verified 04/22/24 18:10 MIGRAINES penicillamine Allergy Unknown Unknown Verified 04/22/24 18:10 ciprofloxacin AdvReac Intermediate neuropathic Verified 04/22/24 18:10 pain lisinopril AdvReac Intermediate Cough Verified 04/22/24 18:10 nitrofurantoin AdvReac Mild GI side Verified 04/22/24 18:10 effects cefuroxime Allergy Intermediate wheezy Uncoded 04/17/24 13:19 cough/itch flagyl Allergy Unknown Unknown Uncoded 04/17/24 13:19 From KEFLEX Allergy Unknown RASH Uncoded 04/17/24 13:19 Metoprolol Tartrate Allergy Unknown Unknown Uncoded 04/17/24 13:19 Sulfacet-R Allergy Unknown Unknown Uncoded 04/17/24 13:19 Review of Systems Review of Systems: Constitutional : No Fever, No Chills, No Fatigue ENT/Mouth : No sore throat, No Rhinorrhea Eyes: No Eye Pain, No Swelling, No Redness Cardiovascular : No Chest Pain, No SOB, No Dyspnea on Exertion Respiratory : No Cough, No Sputum Gastrointestinal : No Nausea, No Vomiting, No Diarrhea, No abdominal Pain Genitourinary : No Dysuria, No Urinary Frequency, No Hematuria, Musculoskeletal : No joint pain, No Myalgias, No Joint Swelling Skin : No Skin Lesions, No rash Neuro : No Weakness, No Numbness, No Dizziness, positive Headache Psych : No Anxiety/Panic, No Depression Heme/Lymph: No Bruising, No Bleeding, pos Lymphadenopathy Endocrine : No Polyuria, No Polydipsia All other systems reviewed and are negative [facility] Past Medical History Attestation statement: The following information was validated with the patient. Source: old records reviewed Medical History URI (upper respiratory infection) HTN (hypertension) Cough Heart palpitations Constipation LLQ abdominal pain Anxiety Breast cancer screening Breast pain, left Elevated vitamin B12 level Neck muscle spasm Strain of neck muscle Low back pain Pubic ramus fracture Sore throat Skin tear of upper arm without complication Head injury, acute, without loss of consciousness Fall Dizziness Medication noncompliance due to cognitive impairment RLQ abdominal pain Sinusitis Flu syndrome Precordial chest pain Atypical chest pain Cold intolerance Former smoker Pulmonary nodule Abnormal lung sounds Fever Bilateral calf pain Nausea Left lower quadrant abdominal pain Dysuria Fatigue Lower extremity weakness Aortic stenosis Obstipation Dark stools Lower abdominal pain Gastroenteritis Neck pain on right side Back pain Chest pain Rhinitis Elevated BP without diagnosis of hypertension Non-rheumatic aortic stenosis Diverticulitis GERD (gastroesophageal reflux disease) Cat scratch Cat bite Epigastric discomfort Diarrhea Nausea Viral syndrome GERD (gastroesophageal reflux disease) Neuropathy Arthritis GERD (gastroesophageal reflux disease) HTN (hypertension) Irritable bowel Heart murmur Surgical History S/P TAVR (transcatheter aortic valve replacement) Hx of esophagogastroduodenoscopy Hx of colonoscopy History of tonsillectomy History of appendectomy Family History Family History Father No problems noted. Mother No problems noted. Social History Social History Household Members: Children Housing: House Are you a primary point of care specialist to a significant other at home: No Do you presently have visiting nurse or other home services: No Alcohol intake: former Patient Tobacco Use Status: Former Tobacco user Tobacco use type: Cigarette e-Cigarette/Vaping Use: Never Used Second Hand Smoke Exposure: No Advance Directives: Yes Advance Directives on File: Yes Advance Directives Date on File: 09/21/23 Do you have a plan to hurt others: No Plan service: No Current occupational status: retired Cognitive needs: No Hearing needs: No Vision needs: Yes (glasses) Physical Exam Vital Signs: Vital Signs: Last Vital Signs Temp 97.7 F 04/22/24 23:54 Pulse 85 04/22/24 23:54 Resp 18 04/22/24 23:54 BP 173/92 H 04/22/24 23:54 Pulse Ox 95 04/22/24 23:54 O2 Del Method Room Air 04/22/24 23:54 BMI result Body Mass Index 25.0 Appearance: Alert. Oriented X3. No acute distress. Eyes: Pupils equal, round and reactive to light. ENT: Pharynx normal. TMs normal, no rash on face, isolated lymph node R anterior cervical chain no mastoid ttp Neck: Normal inspection. Neck supple. no meningeal signs CVS: Normal heart rate and rhythm. Pulses normal. Respiratory: No respiratory distress. Breath sounds normal. Abdomen: Soft and nontender. Skin: Skin warm and dry. Normal skin color. Normal skin turgor. Extremities: No lower extremity edema. No calf ttp Neuro: Oriented X 3. No motor deficit. No sensory deficit. Course Course Course Narrative: This is a Rapid Medical Examination (RME) performed by Dori Orozco PA-C in triage. Full HPI, ROS, assessment and treatment plan per primary provider in the Main ED. 83 yo female with history of anxiety, depression, memory impairment, hypertension, aortic stenosis s/p TAVR, embolic stroke, diverticulitis, GERD, IBS who presents to the ER for evaluation of a headache for the last 2 days. it is on the back of her head on the right side. No dizziness, vision changes, weakness, numbness or tingling. Plan: COVID, CXR Medical Decision Making Medical Decision Making [facility] Narrative: 83 yo female with PMH of HTN, anxiety, UTI, s/p TAVR, COPD, CVA, vertigo, IBS, not on thinners here with c/o paroxysmal pain R side of head seems nerve related has one small lymph node no redness or large swelling no oral swelling at this time anticipate she could trial tylenol and oral antibiotic patient requesting CT head to rule out any pathology. She is neuro intact no signs of deeper space infection or mass in neck at this time Differential Diagnosis Differential Diagnoses: The differential diagnosis associated with the presentation includes viral syndrome, lymphadenitis Admission/Observation Consideration of admission/observation: Escalation of care including admission/observation considered no acute findings can follow up with PCP Lab Data [facility] Lab Attestation statement: I reviewed the patient's lab results. Labs: Lab Results 04/22/24 Range/Units 20:22 COVID-19 (MANDI) Negative (Negative) COVID-19 Clin Com See Note Independent Interpretation I performed an independent interpretation of an: Plain X-Ray (no pneumonia) and CT Scan (no acute change) Radiology Impression Discussion of test interpretation with radiology: I have reviewed the radiologist's reading. External Record Review External record reviewed: Inpatient record and Office record Prescription Management I considered prescription management with: Antibiotic and Other Discharge Plan Discharge Clinical Impression: Lymphadenopathy Acute headache Qualifiers: Headache type: unspecified Intractability: not intractable Qualified Code(s): R51.9 - Headache, unspecified Patient Disposition: Home, Self-Care Instructions: Lymphadenopathy (ED), Acute Headache (DC) Additional Instructions: negative covid normal CXR no acute change on CT head baseline enlarged ventricles no acute change no mass no other findings please follow up with primary care doctor can start azithromycin in the morning take tylenol as needed for pain Prescriptions: New azithromycin 250 mg tablet See Rx Instructions .ROUTE .COMPLEX Qty: 6 0RF Rx Instructions: For 250 mg dose pack: take 500 mg today (day 1), then 250 mg for 4 days (days 2-5) No Action citalopram 20 mg tablet 20 mg PO BEDTIME 90 Days Qty: 90 1RF losartan 25 mg tablet 25 mg PO DAILY 90 Days Qty: 90 1RF mirabegron [Myrbetriq] 25 mg tablet extended release 24 hr 25 mg PO DAILY 30 Days Qty: 30 1RF aspirin 81 mg tablet,delayed release (DR/EC) 81 mg PO QAM Qty: 90 0RF pantoprazole 40 mg tablet,delayed release (DR/EC) 40 mg PO QAM Qty: 30 1RF cholecalciferol (vitamin D3) [Vitamin D3] 50 mcg (2,000 unit) tablet 50 mcg PO DAILY Qty: 30 3RF clopidogrel 75 mg tablet 75 mg PO QAM folic acid 400 mcg Tablet 0.4 mg PO DAILY acetaminophen [Tylenol] 325 mg capsule 325 mg PO Q4H PRN (Reason: pain) Qty: 30 0RF hydrocortisone 2.5 % cream 1 appl topical BID PRN (Reason: itching) Qty: 20 0RF alprazolam 0.25 mg Tablet 0.25 mg PO BID nitrofurantoin monohyd/m-cryst [Macrobid] 100 mg capsule 100 mg PO Q12H 5 Days Qty: 10 0RF Rx Instructions: must administer with a meal/food estradiol 0.01 % (0.1 mg/gram) cream See Rx Instructions vaginal 3XW 30 Days Qty: 42.5 1RF Rx Instructions: pea sized amount to urethra daily times 1 month then 3 times per week thereafter Print Language: Sinhala
[2024-04-22 18:10] VITALS: BP 140/85; PULSE 92; RESP 16; TEMP 36.2; O2SAT 97; BMI 25.0
[2024-04-22 20:40] LABS: COVID-19 Test Negative (Negative); IDNOW Serial# 6674DD1D
[2024-04-22 23:54] VITALS: BP 173/92; PULSE 85; RESP 18; TEMP 36.5; O2SAT 95
[2024-04-23 01:59] VITALS: BP 173/92; PULSE 85; RESP 16; TEMP 36.5; O2SAT 95
== END 2024-04-23 02:00 | disposition home or self-care (01) ==
PROVIDERS: Physician Assistant; Emergency Provider Emergency Medicine; PCP Physician Assistant
DX: R51.9 Headache, unspecified (principal); R59.1 Generalized enlarged lymph nodes; R05.9 Cough, unspecified; M54.2 Cervicalgia; Z11.52 Encounter for screening for COVID-19; Z79.899 Other long term (current) drug therapy; Z87.891 Personal history of nicotine dependence
CPT/HCPCS: 70450; 71046; 87635; 99282; 99284

== ENCOUNTER 2024-04-25 15:53 | Outpatient (AMB) | payer MEDICARE, OTHER, SELFPAY ==
[2024-04-25 16:02] VITALS: BP 140/80; PULSE 94; O2SAT 96; BMI 25.5
--- NOTE | 2024-04-25 16:02 | A.OFFPC_ITS ---
Vital Signs 04/25/24 16:02 Height 5 ft 6 in Weight 158 lb BMI 25.5 BP 140/80 H Blood Pressure Location Lt brachial Position Sitting Pulse 94 Pulse Source Pulse Oximeter Pulse Oximetry (%) 96 Oxygen Delivery Method Room Air Intake Visit Reasons: sore throat for several days Intake Note: Patient is here to follow-up after [place] [facility] [place] Service Secretary Required: No Accompanied by: Son Allergies buspirone Allergy (Intermediate, Verified 04/25/24 16:03) Rash Sulfa (Sulfonamide Antibiotics) Allergy (Intermediate, Verified 04/25/24 16:03) RASH cefuroxime Allergy (Unknown, Verified 04/25/24 16:03) Unknown garlic [GARLIC] Allergy (Unknown, Verified 04/25/24 16:03) PER H&P metronidazole [From FLAGYL] Allergy (Unknown, Verified 04/25/24 16:03) OCULAR MIGRAINES penicillamine Allergy (Unknown, Verified 04/25/24 16:03) Unknown ciprofloxacin Adverse Reaction (Intermediate, Verified 04/25/24 16:03) neuropathic pain lisinopril Adverse Reaction (Intermediate, Verified 04/25/24 16:03) Cough nitrofurantoin Adverse Reaction (Mild, Verified 04/25/24 16:03) GI side effects cefuroxime Allergy (Intermediate, Uncoded 04/25/24 16:03) wheezy cough/itch flagyl Allergy (Unknown, Uncoded 04/25/24 16:03) Unknown From KEFLEX Allergy (Unknown, Uncoded 04/25/24 16:03) RASH Metoprolol Tartrate Allergy (Unknown, Uncoded 04/25/24 16:03) Unknown Sulfacet-R Allergy (Unknown, Uncoded 04/25/24 16:03) Unknown Medication List - Last Reconciled 04/25/24 by Nick Gomez PA-C acetaminophen (Tylenol) 325 mg PO Q4H PRN alprazolam 0.25 mg PO BID aspirin 81 mg PO QAM azithromycin For 250 mg dose pack: take 500 mg today (day 1), then 250 mg for 4 days (days 2-5) cholecalciferol (vitamin D3) (Vitamin D3) 50 mcg PO DAILY citalopram 20 mg PO BEDTIME 90 days clopidogrel 75 mg PO QAM estradiol 0.01%(0.1mg/gram) pea sized amount to urethra daily times 1 month then 3 times per week thereafter 30 days folic acid 0.4 mg PO DAILY hydrocortisone 2.5% 1 appl topical BID PRN losartan 25 mg PO DAILY 90 days mirabegron ER (Myrbetriq) 25 mg PO DAILY 30 days nitrofurantoin monohyd/m-cryst 100 mg (Macrobid) 100 mg PO Q12H 5 days pantoprazole 40 mg PO QAM Tobacco use date assessed: 01/16/24 Fall risk assessment: 2 + Falls in past year Last assessed Fall Risk: 04/25/24 Dental Screening Dental Screen Date: 10/18/23 HPI sore throat for several days HPI Details Patient is an 83-year-old female here today for an ER follow-up visit. Recently suffered a fall in her kitchen resulting in head injury. While in the ER did undergo another head CT showing--> No acute intracranial hemorrhage or territorial loss of damico-white differentiation. Redemonstrated ventriculomegaly with findings suggestive of normal pressure hydrocephalus. Clinical correlation is again recommended. Severe chronic microvascular ischemic change. ANXIETY AND DEPRESSION-> Otherwise patient still remains struggling with depression and anxiety. She has been evaluated by Psychiatry at [facility] whom recommends perhaps weaning her benzodiazepine by changing to diazepam. Also recommendations have been made to change her Celexa to mirtazapine. Will try to reach out to her mental health med provider to see if they are willing to follow these recommendations. [facility] Medical History URI (upper respiratory infection) HTN (hypertension) Cough Heart palpitations Constipation LLQ abdominal pain Anxiety Breast cancer screening Breast pain, left Elevated vitamin B12 level Neck muscle spasm Strain of neck muscle Low back pain Pubic ramus fracture Sore throat Skin tear of upper arm without complication Head injury, acute, without loss of consciousness Fall Dizziness Medication noncompliance due to cognitive impairment RLQ abdominal pain Sinusitis Flu syndrome Precordial chest pain Atypical chest pain Cold intolerance Former smoker Pulmonary nodule Abnormal lung sounds Fever Bilateral calf pain Nausea Left lower quadrant abdominal pain Dysuria Fatigue Lower extremity weakness Aortic stenosis Obstipation Dark stools Lower abdominal pain Gastroenteritis Neck pain on right side Back pain Chest pain Rhinitis Elevated BP without diagnosis of hypertension Non-rheumatic aortic stenosis Diverticulitis GERD (gastroesophageal reflux disease) Cat scratch Cat bite Epigastric discomfort Diarrhea Nausea Viral syndrome GERD (gastroesophageal reflux disease) Neuropathy Arthritis GERD (gastroesophageal reflux disease) HTN (hypertension) Irritable bowel Heart murmur Surgical History S/P TAVR (transcatheter aortic valve replacement) Hx of esophagogastroduodenoscopy Hx of colonoscopy History of tonsillectomy History of appendectomy Family History Father No problems noted. Mother No problems noted. Social History Household Members: Children Housing: House Are you a primary direct care specialist to a significant other at home: No Do you presently have visiting nurse or other home services: No Alcohol intake: former Patient Tobacco Use Status: Former Tobacco user Tobacco use type: Cigarette e-Cigarette/Vaping Use: Never Used Second Hand Smoke Exposure: No Advance Directives Date on File: 09/21/23 service: No Current occupational status: retired Cognitive needs: No Hearing needs: No Vision needs: Yes (glasses) Questionnaire Thrive Questionnaire Date Thrive assessed: 09/27/23 PAIGE-7 AMB Questionnaire PAIGE-7 Date PAIGE - 7 assessed: 09/27/23 Source: Developed by Drs. Anatoliy Gavin, Peyton Hunt, Austyn Weber and colleagues, with an educational kentrell from [employer]. Physical exam (Primary Care) Vital Signs: Last Vital Signs Pulse 94 04/25/24 16:02 BP 140/80 H 04/25/24 16:02 Pulse Ox 96 04/25/24 16:02 Oxygen Delivery Method Room Air 04/25/24 16:02 BMI result Body Mass Index 25.5 Tobacco/Smoking Status: Tobacco use Status Tobacco use date assessed 01/16/24 04/25/24 16:03 Patient Tobacco Use Status Former Tobacco user 04/25/24 16:03 Tobacco use type Cigarette 04/25/24 16:03 e-Cigarette/Vaping Use Never Used 04/25/24 16:03 Thrive Assessment: Date of Thrive Assessment Date Thrive assessed 09/27/23 04/25/24 16:03 Assessment and Plan Assessment & Plan (1) Generalized anxiety disorder: Code(s): F41.1 - Generalized anxiety disorder Plan: PATIENT CONTINUES TO WHAT SEEMS TO BE SEVERE UNCONTROLLED ANXIETY HENCE HER MULTIPLE ER VISITS AND CALLS INTO THE PCP OFFICE. SHE DOES SEE A MENTAL HEALTH MED PROVIDER WHOM IS WORKING WITH HER ON MED MANAGEMENT. SHE IS CURRENTLY LOOKING FOR A NEW THERAPIST. AT THIS TIME USING CELEXA 20 MG AND ALPRAZOLAM 0.25 MG T.I.D. P.R.N. . HAS SEEN PSYCHIATRY AT [facility] WHOM MADE NEW RECOMMENDATIONS ON WEANING HER BENZODIAZEPINE BY CHANGING ALPRAZOLAM TO DIAZEPAM. ALSO MAKE A RECOMMENDATION TO CHANGE CELEXA TO MIRTAZAPINE. WILL TRY TO REACH OUT TO HER MED PSYCHIATRIC PROVIDER TO SEE IF THEY ARE WILLING TO FOLLOW THESE RECOMMENDATIONS. Coding Level of Care Code Est Pt Level 3 (54705) Diagnoses Generalized anxiety disorder F41.1
== END 2024-04-25 17:07 | disposition home or self-care (01) ==
LOC: HO.HMGH 15:54
PROVIDERS: PCP Physician Assistant; Visit Provider Physician Assistant
DX: F41.1 Generalized anxiety disorder (principal)
CPT/HCPCS: 99213

== ENCOUNTER 2024-05-04 13:35 | Emergency (ER) | payer MEDICARE, OTHER, SELFPAY ==
--- NOTE | 2024-05-04 | ECG_ITS ---
Test Reason : DIZZINESS Blood Pressure : / mmHG Vent. Rate : 085 BPM Atrial Rate : 085 BPM P-R Int : 230 ms QRS Dur : 086 ms QT Int : 376 ms P-R-T Axes : 054 -06 029 degrees QTc Int : 447 ms Sinus rhythm with 1st degree A-V block Otherwise normal ECG When compared with ECG of 27-MAR-2024 19:58, No significant change was found Referred By: Generic ED Physician Electronically Signed By:PEPE PAIGE
--- NOTE | ~2024-05-04 | CT_ITS ---
EXAMINATION: CT ABDOMEN AND PELVIS WITH CONTRAST CLINICAL INFORMATION: Left lower quadrant pain COMPARISON: CT abdomen/pelvis January 04, 2024 TECHNIQUE: Multiple axial images were obtained from the superior aspect of the liver through the pubic symphysis after the administration of 85 mL of intravenous Omnipaque. Images were evaluated on independent dedicated 3-D workstation and 3-D images were reconstructed with concurrent radiologist supervision and subsequently interpreted. Oral contrast was not administered. This CT examination was performed using dose optimization techniques as appropriate, variously including the following: *Automated exposure control *Adjustment of mA and/or kV according to patient size (this includes techniques or standardized protocols for targeted exams where dose is matched to indication/reason for exam; i.e. extremities or head) *Use of iterative reconstruction technique DLP: 735 mGy-cm FINDINGS: LUNG BASES: The visualized lung bases are clear. CARDIOMEDIASTINUM: Heart normal in size without pericardial effusion. Partially evaluated aortic valve stent moderate coronary artery calcification. LIVER: Right hepatic simple cysts. Remainder of the liver is homogeneous in attenuation. GALLBLADDER: Noninflamed. BILIARY SYSTEM: No intrahepatic or extrahepatic biliary dilation. PANCREAS: Homogeneous in attenuation. SPLEEN: Normal in size. GENITOURINARY: Bilateral kidneys demonstrate symmetric enhancement. No perinephric fluid collection. Punctate 3 mm left upper pole nonobstructing renal calculus. No hydroureteronephrosis. ADRENAL GLANDS: Unremarkable. REPRODUCTIVE: Anteverted uterus. No solid adnexal masses. GASTROINTESTINAL: The visualized alimentary tract is normal in course. Diffuse circumferential thickening of the sigmoid colon. No evidence of obstruction. APPENDIX: The appendix is not visualized; however, no pericecal inflammatory changes are seen in the right lower quadrant. PERITONEUM: No pneumoperitoneum. No intra-abdominal fluid collection. VASCULATURE: Renal aorta borderline aneurysmal measuring 34 mm Aortoiliac atherosclerotic calcifications. Iliac tortuous in course. LYMPH NODES: No pathologically enlarged abdominal or pelvic lymph nodes. SOFT TISSUES/MUSCULOSKELETAL: Osseous process/groundglass appearance of T12 vertebral body. No acute fractures. Multilevel degenerative changes worst at L3-S1, where there is bilateral facet arthropathy. Left pubic symphysis deformity. CT/CT abdomen pelvis w IV con IMPRESSION: 1. Sigmoid colitis. Differential includes infectious, ischemic, inflammatory. No evidence of perforation. 2. 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 Based on published guidelines in J Am Billy Radiol 2013; 10(10):789-794 and J Vasc Surg. 2018; 67:2-77, the recommendation for an abdominal aortic aneurysm with diameter 3.0-3.4 cm is follow-up every 3 years. 3. Interval development of osteosclerosis/groundglass appearance T12 vertebral body when compared to prior study January 04, 2024. Findings are concerning for malignancy and/or underlying bone marrow disorder. 4. Punctate 3 mm left upper pole nonobstructing renal calculus. Fleischner guidelines were followed. Electronically signed by: Skyler Geller DO 05/04/2024 09:32 PM EDT
[2024-05-04 13:41] VITALS: BP 114/86; PULSE 92; O2SAT 96; BMI 26.4
[2024-05-04 14:15] LABS: MANUAL DIFF FLAG NO
--- NOTE | 2024-05-04 14:16 | PC.NURSE ---
patient presents via EMS for cc of generally feeling off , patient states she feels like she is having some tingling sensations in her face, some abdominal pain, and today she had some urinary frequency but denies burning or incontinence. patient alert and oriented x4, answering questions appropriately. Neuros intact, VS are WNL. 18g IV placed in LAC, blood work obtained and sent to lab. patient ambulated with steady gait with this RN tot he bathroom to try to obtain urine sample, unable to provide sample at this time. patient states she uses walker baseline at home when she remembers but she is usually pretty steady on her feet. patient with some diffuse abdominal tenderness, per EMS hx of diverticulitis, BS normoactive in all four quadrants. patient denies recent sick contacts, stating to this RN i just feel off, i don't know whats going on, my memory just isnt as good as is usually is and i want to know why . patient placed on director cardiac, EKG completed, callbell within reach, awaiting MD bay at this time
[2024-05-04 14:23] VITALS: BP 148/87; PULSE 90; RESP 15; TEMP 36.7; O2SAT 96
[2024-05-04 14:26] LABS: Basophils Percent Auto 0.7 % (0-2); Eosinophils Absolute Auto 0.1 X10*3/uL (0.0-0.4); Eosinophils Percent Auto 3.5 % (0-4); Hematocrit 32.4 % (37.0-47.0); Hemoglobin 10.6 g/dl (12.0-16.0); Imm Gran Abs Auto 0.02 X10*3/uL (0.00-0.03); Imm Gran Pct Auto 0.7 % (0.0-0.4); Lymphocytes Absolute Auto 0.4 X10*3/uL (1.2-4.9); Lymphocytes Percent Auto 14.2 % (20-40); Mean Corpuscular HGB Conc 32.7 g/dl (31.0-35.0); Mean Corpuscular Hemoglobin 30.2 pg (27.0-33.0); Mean Corpuscular Volume 92.3 fL (80.0-98.0); Mean Platelet Volume 11.3 fL (9.4-12.3); Monocytes Absolute Auto 0.2 X10*3/uL (0.1-1.2); Monocytes Percent Auto 8.5 % (2-11); Neutrophils Percent Auto 72.4 % (45-73); Platelet Count 128 X10*3/uL (160-400); Red Blood Count 3.51 X10*6/uL (4.20-5.50); Red Cell Distribution Width 14.1 % (11.0-16.0); White Blood Count 2.8 X10*3/uL (4.8-10.8)
[2024-05-04 14:31] LABS: Alanine Aminotransferase 11 U/L (0-31); Albumin Level 4.1 g/dL (3.5-5.0); Alkaline Phosphatase 138 U/L (39-117); Anion Gap 11 (12-20); Aspartate Amino Transferase 18 U/L (5-31); Bilirubin Total 0.5 mg/dL (0.0-1.0); Blood Urea Nitrogen 15 mg/dL (9-16); Carbon Dioxide 30 mmol/L (22-29); Chloride 103 mmol/L (96-108); Creatinine Clr Calc Pharmacy 52.3; Estimated Glomerular Filt Rate > 60; Glucose Random 97 mg/dL (60-115); Lipase 21 U/L (8-78); Potassium 4.2 mmol/L (3.3-5.1); Sodium 140 mmol/L (135-145); Total Protein 7.2 g/dL (6.5-8.0)
[2024-05-04 14:52] LABS: Influenza A PCR NEGATIVE (Negative); Influenza B PCR NEGATIVE (Negative); Resp Syncy Virus RNA Qual PCR NEGATIVE (Negative); SARS COV2 PCR INHOUSE NEGATIVE (Negative)
[2024-05-04 15:40] LABS: Appearance Urine Clear; Color Urine Yellow; Glucose Urine UA Negative (Negative); Leukocyte Esterase Urine Trace (Negative); Nitrite Urine Negative (Negative); PH 6.5 (5.0-9.0); Specific Gravity - Urine 1.015 (1.005-1.025); UMIC TRIGGER UACC YES; Urine Blood Negative (Negative); Urine Ketones Negative (Negative); Urine Protein Negative (Neg-Trace)
[2024-05-04 15:46] LABS: Bacteria Urine None Seen (None Seen); Hyaline Casts Urine 0-2 /LPF (0-2); RBC Urine 0-2 /HPF (0-2); Squamous Epithelial Cell Urine 0-2 /HPF (0-2); WBC Urine 0-5 /HPF (0-5)
[2024-05-04 17:01] VITALS: BP 147/95; PULSE 87; RESP 20; TEMP 36.8; O2SAT 97
[2024-05-04] MEDS: Lidocaine HCl Viscous 2 % 15 ML SOLUTION MUCOUS MEM (17:09)
[2024-05-04] MEDS: Magnesium Hydrox/Alum Hydrox 30 ML ORAL.SUSP PO (17:09)
[2024-05-04] MEDS: 0.9 % Sodium Chloride 1,000 ML 999 ML IV (17:11)
--- NOTE | 2024-05-04 17:23 | ED_ITS ---
HPI - General Adult General Chief complaint: Abdominal Pain Stated complaint: ABD PAIN Time Seen by Provider: 05/04/24 16:01 Source: patient, RN notes reviewed and old records reviewed Mode of arrival: EMS Limitations: other (Very poor historian) History of Present Illness ED Provider: Kyle HPI narrative: 83-year-old female with past medical history significant for hypertension, COPD, status post TAVR in August of last year, chronic constipation, thrombocytopenia, history of CVA, anxiety, GERD presents for evaluation of multiple complaints. Patient reports that she ?feels unwell. ? She states that she has not felt well since last August when she had her TAVR procedure at [facility] She is a very poor historian and it is somewhat unclear what brought her to the hospital today She reports that she is having heartburn in indicates the center o her chest were she is experiencing burning pain She reports generalized weakness Patient states that she does not drink enough fluids at home Denies any fevers, chills She also reports left lower quadrant abdominal pain She has a history of constipation but reports she had an abnormally large bowel movement 2 days ago She reports tingling in her nose, arms and feet Related Data Home Medications ?Medication ?Instructions ?Recorded ?Confirmed clopidogrel 75 mg tablet 75 mg PO QAM 11/23/23 04/25/24 folic acid 400 mcg tablet 0.4 mg PO DAILY 11/23/23 04/25/24 alprazolam 0.25 mg tablet 0.25 mg PO BID 03/28/24 04/25/24 Previous Rx's ?Medication ?Instructions ?Recorded citalopram 20 mg tablet 20 mg PO BEDTIME 90 days #90 tabs 10/23/23 acetaminophen 325 mg capsule 325 mg PO Q4H PRN pain #30 caps 12/17/23 (Tylenol) losartan 25 mg tablet 25 mg PO DAILY 90 days #90 tabs 02/28/24 estradiol 0.01% (0.1 mg/gram) See Rx Instructions vaginal 3XW 30 04/12/24 vaginal cream days #42.5 grams hydrocortisone 2.5 % topical cream 1 appl topical BID PRN itching #20 04/14/24 grams mirabegron 25 mg tablet,extended 25 mg PO DAILY 30 days #30 tabs 04/16/24 release 24 hr (Myrbetriq) cholecalciferol (vitamin D3) 50 50 mcg PO DAILY #30 tabs 04/17/24 mcg (2,000 unit) tablet (Vitamin D3) nitrofurantoin 100 mg PO Q12H 5 days #10 caps 04/17/24 monohydrate/macrocrystals 100 mg capsule (Macrobid) pantoprazole 40 mg tablet,delayed 40 mg PO QAM #30 tabs 04/17/24 release azithromycin 250 mg tablet See Rx Instructions PO .COMPLEX #6 04/23/24 tabs aspirin 81 mg tablet,delayed 81 mg PO QAM #90 tabs 04/29/24 release Allergies Allergy/AdvReac Type Severity Reaction Status Date / Time buspirone Allergy Intermediate Rash Verified 05/04/24 13:43 Sulfa (Sulfonamide Allergy Intermediate RASH Verified 05/04/24 13:43 Antibiotics) cefuroxime Allergy Unknown Unknown Verified 05/04/24 13:43 garlic [GARLIC] Allergy Unknown PER H&P Verified 05/04/24 13:43 metronidazole [From FLAGYL] Allergy Unknown OCULAR Verified 05/04/24 13:43 MIGRAINES penicillamine Allergy Unknown Unknown Verified 05/04/24 13:43 ciprofloxacin AdvReac Intermediate neuropathic Verified 05/04/24 13:43 pain lisinopril AdvReac Intermediate Cough Verified 05/04/24 13:43 nitrofurantoin AdvReac Mild GI side Verified 05/04/24 13:43 effects cefuroxime Allergy Intermediate wheezy Uncoded 05/04/24 13:43 cough/itch flagyl Allergy Unknown Unknown Uncoded 05/04/24 13:43 From KEFLEX Allergy Unknown RASH Uncoded 05/04/24 13:43 Metoprolol Tartrate Allergy Unknown Unknown Uncoded 05/04/24 13:43 Sulfacet-R Allergy Unknown Unknown Uncoded 05/04/24 13:43 Review of Systems 2 Constitutional: Constitutional: Denies body ache(s), Reports fatigue, Denies fever(s), Denies headache(s), Reports lethargy, Reports malaise, Reports poor appetite and Reports weakness ENT: Denies dysphagia and Denies headache(s) Cardiovascular: Cardiovascular: Reports chest pain, Reports epigastric discomfort and Denies dyspnea Respiratory: Respiratory: Reports cough and Denies dyspnea Gastrointestinal: Gastrointestinal: Reports abdominal pain, Denies dysphagia, Reports nausea and Denies vomiting Musculoskeletal: Musculoskeletal: Reports back pain Integumentary/Breasts: Skin/Breast: Denies rash Neurologic: Denies headache(s) and Reports weakness Psychiatric: Psychiatric: Reports anxiety Endocrine: Endocrine: Reports fatigue [facility] Past Medical History Medical History URI (upper respiratory infection) HTN (hypertension) Cough Heart palpitations Constipation LLQ abdominal pain Anxiety Breast cancer screening Breast pain, left Elevated vitamin B12 level Neck muscle spasm Strain of neck muscle Low back pain Pubic ramus fracture Sore throat Skin tear of upper arm without complication Head injury, acute, without loss of consciousness Fall Dizziness Medication noncompliance due to cognitive impairment RLQ abdominal pain Sinusitis Flu syndrome Precordial chest pain Atypical chest pain Cold intolerance Former smoker Pulmonary nodule Abnormal lung sounds Fever Bilateral calf pain Nausea Left lower quadrant abdominal pain Dysuria Fatigue Lower extremity weakness Aortic stenosis Obstipation Dark stools Lower abdominal pain Gastroenteritis Neck pain on right side Back pain Chest pain Rhinitis Elevated BP without diagnosis of hypertension Non-rheumatic aortic stenosis Diverticulitis GERD (gastroesophageal reflux disease) Cat scratch Cat bite Epigastric discomfort Diarrhea Nausea Viral syndrome GERD (gastroesophageal reflux disease) Neuropathy Arthritis GERD (gastroesophageal reflux disease) HTN (hypertension) Irritable bowel Heart murmur Surgical History S/P TAVR (transcatheter aortic valve replacement) Hx of esophagogastroduodenoscopy Hx of colonoscopy History of tonsillectomy History of appendectomy Family History Family History Father No problems noted. Mother No problems noted. Social History Social History Household Members: Children Housing: House Are you a primary animal care attendant to a significant other at home: No Do you presently have visiting nurse or other home services: No Alcohol intake: former Patient Tobacco Use Status: Former Tobacco user Tobacco use type: Cigarette Smoked in Last 30 Days: No e-Cigarette/Vaping Use: Never Used Second Hand Smoke Exposure: No Use of substances other than those prescribed or required for medical reasons: No Advance Directives: No Advance Directives Information Provided: No Advance Directives Date on File: 09/21/23 Do you have a plan to hurt others: No Plan service: No Current occupational status: retired Cognitive needs: No Hearing needs: No Vision needs: Yes (glasses) Physical Exam ED Vital Signs: Vital Signs - 24 hr 05/04/24 14:23 05/04/24 17:01 05/04/24 18:00 Temperature 98.1 F 98.2 F 98.9 F Pulse Rate 90 87 87 Respiratory Rate 15 20 15 Blood Pressure 148/87 H 147/95 H 136/67 Pulse Oximetry 96 97 96 Oxygen Delivery Method Room Air Room Air Room Air 05/04/24 20:33 05/04/24 22:56 Temperature 98.0 F 98.2 F Pulse Rate 88 89 Respiratory Rate 15 12 Blood Pressure 188/89 H 178/88 H Pulse Oximetry 97 94 Oxygen Delivery Method Room Air Room Air BMI result Body Mass Index 26.4 Const General: healthy appearing, comfortable, no acute distress, alert and awake Nutritional Appearance: well nourished Orientation/consciousness: patient oriented x3 HENMT Head: Yes normocephalic and Yes atraumatic Eyes Eyelids: Yes eyelids normal Conjunctivae: conjunctivae normal Sclerae: sclerae normal Corneas: corneas normal Pupils: Equal, round and reactive pupils present EOM: EOMs intact bilaterally Neck Neck: Yes full ROM Resp Effort & Inspection: normal respiratory effort, able to speak in complete sentences, no audible wheezes and not labored Auscultation: clear to auscultation bilaterally Cardio Rate: regular rate Rhythm: regular rhythm GI Other: Patient has a firmness in the suprapubic/left lower quadrant. This area is nontender Inspection: No distended Palpation (GI): Soft to palpation, not firm, nontender, no guarding and not rigid Skin General skin exam: elasticity normal Neuro General: patient oriented x3 Cranial nerves: Yes Equal, round and reactive pupils present and Yes Bilaterally intact EOM present Cognition (Neuro): normal cognition Extrem Other: Moving all extremities well without any obvious deformities Course Reevaluation(s) Reevaluation #1: Patient remains resting comfortably, her pain has improved, vital signs remained stable. Her CT scan shows questionable colitis. The patient does not have a high white blood cell count, no leukocytosis. She has not had any diarrhea or bloody stool. I do not feel that she requires antibiotic treatment at this time. The patient was instructed to have a liquid diet for the next 2 days and advance as tolerated. She was given return precautions, especially if she develops a fever or severe pain Time: 23:40 Medications Administered Discontinued Medications Generic Name Dose Route Start Last Admin Trade Name Zarina PRN Reason Stop Dose Admin Al Hydroxide/Mg Hydroxide 30 ml 05/04/24 16:47 05/04/24 17:09 Magnesium Hydrox/Alum Hydrox 30 Ml Oral.Susp PO 05/04/24 16:48 30 ml ONCE ONE Administration Sodium Chloride 1,000 mls @ 999 mls/hr 05/04/24 17:00 05/04/24 18:51 Ns IV 05/04/24 18:00 Infused .Q1H1M URSULA Infusion Iohexol 100 ml 05/04/24 18:52 05/04/24 18:52 Iohexol 350 Mg/Ml 100 Ml Infus..Btl IV 05/04/24 18:53 85 ml ONCE ONE Administration Lidocaine HCl 15 ml 05/04/24 16:47 05/04/24 17:09 Lidocaine Hcl Viscous 2 % 15 Ml Solution MUCOUS MEM 05/04/24 16:48 15 ml ONCE ONE Administration Medical Decision Making Medical Decision Making [facility] Narrative: 83-year-old female with past medical history as documented above presents for evaluation of numerous complaints including chest pain, numbness and tingling, abdominal pain, general malaise. She had a broad workup consisting of basic labs, EKG, urinalysis, viral swabs. Her labs are significant for a pancytopenia which is consistent with her baseline and known history. Her chemistries are without significant abnormality. CO2 is just above normal at 30 but consistent with her baseline. No significant electrolyte abnormalities. The alk-phos is slightly elevated to 138 of unclear significance. Troponin is 8.8. We will get a CT scan of the abdomen pelvis given the left lower quadrant abdominal pain and palpable firmness in that area Differential Diagnosis Differential Diagnoses: The differential diagnosis associated with the presentation includes GERD Abdominal pain ACS Constipation Uterine fibroid Distended bladder UTI Obstructive uropathy Ovarian cyst Diverticulitis Colitis Lab Data [facility] Lab Attestation statement: I reviewed the patient's lab results. Please see medical decision making section above 05/04/24 14:06 05/04/24 14:06 Labs: Lab Results 05/04/24 05/04/24 05/04/24 Range/Units 14:06 15:23 16:52 WBC 2.8 L (4.8-10.8) X10*3/uL RBC 3.51 L (4.20-5.50) X10*6/uL Hgb 10.6 L (12.0-16.0) g/dl Hct 32.4 L (37.0-47.0) % MCV 92.3 (80.0-98.0) fL MCH 30.2 (27.0-33.0) pg MCHC 32.7 (31.0-35.0) g/dl RDW 14.1 (11.0-16.0) % Plt Count 128 L (160-400) X10*3/uL MPV 11.3 (9.4-12.3) fL Immature Gran % (Auto) 0.7 H (0.0-0.4) % Neut % (Auto) 72.4 (45-73) % Lymph % (Auto) 14.2 L (20-40) % [place] % (Auto) 8.5 (2-11) % Eos % (Auto) 3.5 (0-4) % Baso % (Auto) 0.7 (0-2) % Lymph # (Auto) 0.4 L (1.2-4.9) X10*3/uL [place] # (Auto) 0.2 (0.1-1.2) X10*3/uL Eos # (Auto) 0.1 (0.0-0.4) X10*3/uL Baso # (Auto) 0.0 (0.0-0.2) X10*3/uL Abs Immat Gran (auto) 0.02 (0.00-0.03) X10*3/uL Absolute Neuts (auto) 2.0 (2.0-8.3) x10*3/uL Absolute Nucleated RBC 0.000 (0.0-0.012) X10*3/uL Nucleated RBC % (auto) 0.0 (0.0-0.2) /100WBC Sodium 140 (135-145) mmol/L Potassium 4.2 (3.3-5.1) mmol/L Chloride 103 (96-108) mmol/L Carbon Dioxide 30 H (22-29) mmol/L Anion Gap 11 L (12-20) BUN 15 (9-16) mg/dL Creatinine 0.84 (0.5-1.4) mg/dL Estim Creat Clear Calc 52.3 Estimated GFR > 60 Random Glucose 97 (60-115) mg/dL Calcium 10.0 (8.4-10.2) mg/dL Total Bilirubin 0.5 (0.0-1.0) mg/dL AST 18 (5-31) U/L ALT 11 (0-31) U/L Alkaline Phosphatase 138 H (39-117) U/L Troponin I High Sens 8.8 D (<3.5-17.0) ng/L Total Protein 7.2 (6.5-8.0) g/dL Albumin 4.1 (3.5-5.0) g/dL Lipase 21 (8-78) U/L Urine Color Yellow Urine Appearance Clear Urine pH 6.5 (5.0-9.0) Ur Specific [place] 1.015 (1.005-1.025) Urine Protein Negative (Neg-Trace) mg/dL Urine Glucose (UA) Negative (Negative) mg/dL Urine Ketones Negative (Negative) mg/dL Urine Blood Negative (Negative) Urine Nitrite Negative (Negative) Ur Leukocyte Esterase Trace H (Negative) Urine RBC 0-2 (0-2) /HPF Urine WBC 0-5 (0-5) /HPF Ur Squamous Epith Cells 0-2 (0-2) /HPF Urine Bacteria None Seen (None Seen) Hyaline Casts 0-2 (0-2) /LPF Influenza Type A (PCR) NEGATIVE (Negative) Influenza Type B (PCR) NEGATIVE (Negative) RSV RNA Qual (PCR) NEGATIVE (Negative) SARS-CoV-2 RNA (RT-PCR) NEGATIVE (Negative) Independent Interpretation I performed an independent interpretation of an: EKG (Sinus rhythm with first- degree AV block. No significant change when compared to previous from March 27, 2024) Discharge Plan Discharge Clinical Impression: Chest pain, Abdominal pain Patient Disposition: Home, Self-Care Instructions: Chest Pain (ED), Colitis (ED) Additional Instructions: Your workup in the ER today was reassuring Your CT scan showed possible inflammation your colon. For this reason I recommend a liquid diet for the next 2 days Return to the ER if you develop fever, severe pain or severe diarrhea Follow-up with your primary doctor Prescriptions: No Action citalopram 20 mg tablet 20 mg PO BEDTIME 90 Days Qty: 90 1RF losartan 25 mg tablet 25 mg PO DAILY 90 Days Qty: 90 1RF mirabegron [Myrbetriq] 25 mg tablet extended release 24 hr 25 mg PO DAILY 30 Days Qty: 30 1RF pantoprazole 40 mg tablet,delayed release (DR/EC) 40 mg PO QAM Qty: 30 1RF cholecalciferol (vitamin D3) [Vitamin D3] 50 mcg (2,000 unit) tablet 50 mcg PO DAILY Qty: 30 3RF aspirin 81 mg tablet,delayed release (DR/EC) 81 mg PO QAM Qty: 90 0RF clopidogrel 75 mg tablet 75 mg PO QAM folic acid 400 mcg Tablet 0.4 mg PO DAILY acetaminophen [Tylenol] 325 mg capsule 325 mg PO Q4H PRN (Reason: pain) Qty: 30 0RF hydrocortisone 2.5 % cream 1 appl topical BID PRN (Reason: itching) Qty: 20 0RF azithromycin 250 mg tablet See Rx Instructions .ROUTE .COMPLEX Qty: 6 0RF Rx Instructions: For 250 mg dose pack: take 500 mg today (day 1), then 250 mg for 4 days (days 2-5) alprazolam 0.25 mg Tablet 0.25 mg PO BID nitrofurantoin monohyd/m-cryst [Macrobid] 100 mg capsule 100 mg PO Q12H 5 Days Qty: 10 0RF Rx Instructions: must administer with a meal/food estradiol 0.01 % (0.1 mg/gram) cream See Rx Instructions vaginal 3XW 30 Days Qty: 42.5 1RF Rx Instructions: pea sized amount to urethra daily times 1 month then 3 times per week thereafter Print Language: Korean
[2024-05-04 17:31] LABS: Troponin-I High Sensitivity 8.8 ng/L (<3.5-17.0)
[2024-05-04 18:00] VITALS: BP 136/67; PULSE 87; RESP 15; TEMP 37.2; O2SAT 96
[2024-05-04] MEDS: iohexoL 350 MG/ML 100 ML INFUS..BTL IV (18:52)
--- NOTE | 2024-05-04 19:42 | PC.NURSE ---
Pt sitting up in bed, ca&ox3, no signs of distress Plan of care ongoing.
--- NOTE | 2024-05-04 19:49 | PC.NURSE ---
Pt reporting 2/10 heart burn. Denies other sx tv turned on for pt, and call mcmahan placed within reach Plan of care ongoing.
--- NOTE | 2024-05-04 20:25 | PC.NURSE ---
Pt ambulated with cane and slow steady gait to restroom. Pt assisted back into bed by tech Plan of care ongoing.
[2024-05-04 20:33] VITALS: BP 188/89; PULSE 88; RESP 15; TEMP 36.7; O2SAT 97
[2024-05-04 22:56] VITALS: BP 178/88; PULSE 89; RESP 12; TEMP 36.8; O2SAT 94
--- NOTE | 2024-05-04 23:30 | PC.NURSE ---
This RN spoke with pts son Hi. Per son will come to get her if shes being d/c. Plan of care ongoing.
[2024-05-05 00:12] VITALS: BP 168/75; PULSE 89; RESP 17; O2SAT 94
== END 2024-05-05 00:30 | disposition home or self-care (01) ==
PROVIDERS: Physician Assistant; Emergency Provider Emergency Medicine Emergency Medical Services; PCP Physician Assistant
DX: R07.9 Chest pain, unspecified (principal); R10.32 Left lower quadrant pain; Z03.818 Encounter for observation for suspected exposure to other biological agents ruled out; I10 Essential (primary) hypertension; Z95.2 Presence of prosthetic heart valve
CPT/HCPCS: 0241U; 36415; 74177; 80053; 81001; 83690; 84484; 85025; 93005; 96360; 96361; 99284; 99285; Q9967

== ENCOUNTER 2024-05-06 19:45 | Emergency (ER) | payer MEDICARE, OTHER, SELFPAY ==
[2024-05-06 19:58] VITALS: BP 82/56; PULSE 87; RESP 18; TEMP 36.8; O2SAT 98; BMI 24.4
--- NOTE | 2024-05-06 20:00 | ECG_ITS ---
Test Reason : DIZZY Blood Pressure : / mmHG Vent. Rate : 093 BPM Atrial Rate : 093 BPM P-R Int : 188 ms QRS Dur : 088 ms QT Int : 366 ms P-R-T Axes : 055 -31 041 degrees QTc Int : 455 ms Normal sinus rhythm Possible Left atrial enlargement Left axis deviation Inferior infarct , age undetermined Cannot rule out Anterior infarct , age undetermined Abnormal ECG When compared with ECG of 04-MAY-2024 14:09, MS interval has decreased Minimal criteria for Anterior infarct are now Present Referred By: Paty Clemens Electronically Signed By:PEPE PAIGE
--- NOTE | 2024-05-06 20:05 | ED.GENADULT ---
HPI - General Adult General Chief complaint: General Medical Stated complaint: weakness, body aches, nausea Time Seen by Provider: 05/06/24 21:23 Source: patient Mode of arrival: ambulatory Limitations: no limitations History of Present Illness ED Provider: timothy TRIPATHI narrative: Patient is 83 years old with history of TAVR 08/26, anxiety, recurrent lower abdominal pain with frequent ED visits last visit was 05/[address] scan of the abdomen showed mild sigmoid colitis comes here for feeling weak and similar pain in the lower abdomen with dizziness blood pressure dropped to 82/56 in triage repeat blood pressure was 126/81 patient says this lower abdominal pain been there for long time and colonoscopy 01/24 which showed diverticulosis internal hemorrhoids patient has not been eating or drinking that much for last few days feel depressed denies any SI patient denied any diarrhea does have nausea Related Data Home Medications ?Medication ?Instructions ?Recorded ?Confirmed clopidogrel 75 mg tablet 75 mg PO QAM 11/23/23 04/25/24 folic acid 400 mcg tablet 0.4 mg PO DAILY 11/23/23 04/25/24 alprazolam 0.25 mg tablet 0.25 mg PO BID 03/28/24 04/25/24 Previous Rx's ?Medication ?Instructions ?Recorded citalopram 20 mg tablet 20 mg PO BEDTIME 90 days #90 tabs 10/23/23 acetaminophen 325 mg capsule 325 mg PO Q4H PRN pain #30 caps 12/17/23 (Tylenol) losartan 25 mg tablet 25 mg PO DAILY 90 days #90 tabs 02/28/24 estradiol 0.01% (0.1 mg/gram) See Rx Instructions vaginal 3XW 30 04/12/24 vaginal cream days #42.5 grams hydrocortisone 2.5 % topical cream 1 appl topical BID PRN itching #20 04/14/24 grams mirabegron 25 mg tablet,extended 25 mg PO DAILY 30 days #30 tabs 04/16/24 release 24 hr (Myrbetriq) cholecalciferol (vitamin D3) 50 50 mcg PO DAILY #30 tabs 04/17/24 mcg (2,000 unit) tablet (Vitamin D3) nitrofurantoin 100 mg PO Q12H 5 days #10 caps 04/17/24 monohydrate/macrocrystals 100 mg capsule (Macrobid) pantoprazole 40 mg tablet,delayed 40 mg PO QAM #30 tabs 04/17/24 release azithromycin 250 mg tablet See Rx Instructions PO .COMPLEX #6 04/23/24 tabs aspirin 81 mg tablet,delayed 81 mg PO QAM #90 tabs 04/29/24 release pantoprazole 40 mg tablet,delayed 40 mg PO DAILY #90 tabs 05/07/24 release (Protonix) sucralfate 1 gram tablet 1 g PO TID #90 tabs 05/07/24 Allergies Allergy/AdvReac Type Severity Reaction Status Date / Time buspirone Allergy Intermediate Rash Verified 05/06/24 19:59 Sulfa (Sulfonamide Allergy Intermediate RASH Verified 05/06/24 19:59 Antibiotics) cefuroxime Allergy Unknown Unknown Verified 05/06/24 19:59 garlic [GARLIC] Allergy Unknown PER H&P Verified 05/06/24 19:59 metronidazole [From FLAGYL] Allergy Unknown OCULAR Verified 05/06/24 19:59 MIGRAINES penicillamine Allergy Unknown Unknown Verified 05/06/24 19:59 ciprofloxacin AdvReac Intermediate neuropathic Verified 05/06/24 19:59 pain lisinopril AdvReac Intermediate Cough Verified 05/06/24 19:59 nitrofurantoin AdvReac Mild GI side Verified 05/06/24 19:59 effects cefuroxime Allergy Intermediate wheezy Uncoded 05/04/24 13:43 cough/itch flagyl Allergy Unknown Unknown Uncoded 05/04/24 13:43 From KEFLEX Allergy Unknown RASH Uncoded 05/04/24 13:43 Metoprolol Tartrate Allergy Unknown Unknown Uncoded 05/04/24 13:43 Sulfacet-R Allergy Unknown Unknown Uncoded 05/04/24 13:43 Review of Systems Review of Systems: Yes all other systems are reviewed and are negative [facility] Past Medical History Medical History URI (upper respiratory infection) HTN (hypertension) Cough Heart palpitations Constipation LLQ abdominal pain Anxiety Breast cancer screening Breast pain, left Elevated vitamin B12 level Neck muscle spasm Strain of neck muscle Low back pain Pubic ramus fracture Sore throat Skin tear of upper arm without complication Head injury, acute, without loss of consciousness Fall Dizziness Medication noncompliance due to cognitive impairment RLQ abdominal pain Sinusitis Flu syndrome Precordial chest pain Atypical chest pain Cold intolerance Former smoker Pulmonary nodule Abnormal lung sounds Fever Bilateral calf pain Nausea Left lower quadrant abdominal pain Dysuria Fatigue Lower extremity weakness Aortic stenosis Obstipation Dark stools Lower abdominal pain Gastroenteritis Neck pain on right side Back pain Chest pain Rhinitis Elevated BP without diagnosis of hypertension Non-rheumatic aortic stenosis Diverticulitis GERD (gastroesophageal reflux disease) Cat scratch Cat bite Epigastric discomfort Diarrhea Nausea Viral syndrome GERD (gastroesophageal reflux disease) Neuropathy Arthritis GERD (gastroesophageal reflux disease) HTN (hypertension) Irritable bowel Heart murmur Surgical History S/P TAVR (transcatheter aortic valve replacement) Hx of esophagogastroduodenoscopy Hx of colonoscopy History of tonsillectomy History of appendectomy Family History Family History Father No problems noted. Mother No problems noted. Social History Social History Household Members: Children Housing: House Are you a primary home health caregiver to a significant other at home: No Do you presently have visiting nurse or other home services: No Alcohol intake: former Patient Tobacco Use Status: Former Tobacco user Tobacco use type: Cigarette Smoked in Last 30 Days: No e-Cigarette/Vaping Use: Never Used Second Hand Smoke Exposure: No Use of substances other than those prescribed or required for medical reasons: No Advance Directives: Yes Advance Directives on File: Yes Advance Directives Date on File: 09/21/23 Do you have a plan to hurt others: No Plan service: No Current occupational status: retired Cognitive needs: No Hearing needs: No Vision needs: Yes (glasses) Physical Exam ED Vital Signs: Vital Signs - 24 hr 05/06/24 19:58 05/06/24 20:23 05/06/24 20:51 Temperature 98.2 F 97.7 F 97.6 F Pulse Rate 87 90 87 Respiratory Rate 18 16 16 Blood Pressure 82/56 L 131/73 126/81 Pulse Oximetry 98 95 95 Oxygen Delivery Method Room Air Room Air Room Air 05/06/24 22:23 05/06/24 23:58 05/07/24 04:01 Temperature 98.0 F 98.9 F 98.0 F Pulse Rate 82 85 82 Respiratory Rate 16 16 18 Blood Pressure 147/67 H 158/79 H 117/58 L Pulse Oximetry 97 97 95 Oxygen Delivery Method Room Air Room Air Room Air 05/07/24 05:45 Temperature 98.3 F Pulse Rate 81 Respiratory Rate 16 Blood Pressure 142/87 H Pulse Oximetry 96 Oxygen Delivery Method Room Air BMI result Body Mass Index 24.4 Blood pressure 157/83 pulse rate 85 regular Appearance: Alert. Oriented X3. No acute distress. Anxious Eyes: No pallor or icterus ENT: Pharynx normal. Oral Mucosa moist Neck: Normal inspection. Neck supple. CVS: Normal heart rate and rhythm. Pulses normal. Soft ejection systolic murmur at base Respiratory: No respiratory distress. Equal air entry bilateral, no wheezing/rales/rhonchi Abdomen: Soft and deep tenderness left side of abdomen no rebound tenderness or guarding, Bowel sounds are present, no mass palpable, no CVA tenderness Skin: Skin warm and dry. Normal skin color. Normal skin turgor. Extremities: No lower extremity edema. No calf tenderness Neuro: Oriented X 3. No motor deficit. Course Course Course Narrative: This is a Rapid Medical Examination (RME) performed by José Miguel Clemens PA-C in triage. Full HPI, ROS, assessment and treatment plan per primary provider in the Main ED. 83 yo female hx of HTN, COPD, S/P tavr [place] 08/2023, chronic constipation, thrombocytopenia, CVA, anxiety, GERD here for eval of nausea, increased weakness and dizziness with associated lower abdominal pain x today. states same old, but worse . + pale appearing in triage. BP hypotensive in B/L UEs (80s/50s) border measurer aware- patient to be brought back to ED bed. Plan: labs, UA, ekg Medications Administered Discontinued Medications Generic Name Dose Route Start Last Admin Trade Name Freq PRN Reason Stop Dose Admin Al Hydroxide/Mg Hydroxide 30 ml 05/07/24 05:21 05/07/24 05:48 Magnesium Hydrox/Alum Hydrox 30 Ml Oral.Susp PO 05/07/24 05:22 30 ml ONCE ONE Administration Alprazolam 0.25 mg 05/07/24 01:39 05/07/24 01:43 Alprazolam 0.25 Mg Tablet PO 05/07/24 01:40 0.25 mg ONCE ONE Administration Sodium Chloride 1,000 mls @ 999 mls/hr 05/06/24 21:39 05/07/24 00:16 Ns IV 05/06/24 22:39 Infused .Q1H1M ONE Infusion Medical Decision Making Medical Decision Making [facility] Narrative: Patient's anxiety with stable labs with frequent ED visits improved after IV hydration had transient hypotension secondary to vasovagal patient is feeling much better at the time of discharge will discharge patient home Lab Data [facility] Lab Attestation statement: I reviewed the patient's lab results. 05/06/24 20:50 05/06/24 20:50 Labs: Lab Results 05/06/24 05/07/24 Range/Units 20:50 00:03 WBC 3.2 L (4.8-10.8) X10*3/uL RBC 3.39 L (4.20-5.50) X10*6/uL Hgb 10.2 L (12.0-16.0) g/dl Hct 30.8 L (37.0-47.0) % MCV 90.9 (80.0-98.0) fL MCH 30.1 (27.0-33.0) pg MCHC 33.1 (31.0-35.0) g/dl RDW 13.9 (11.0-16.0) % Plt Count 125 L (160-400) X10*3/uL MPV 10.9 (9.4-12.3) fL Immature Gran % (Auto) 0.3 (0.0-0.4) % Neut % (Auto) 76.6 H (45-73) % Lymph % (Auto) 11.4 L (20-40) % [place] % (Auto) 9.6 (2-11) % Eos % (Auto) 1.2 (0-4) % Baso % (Auto) 0.9 (0-2) % Lymph # (Auto) 0.4 L (1.2-4.9) X10*3/uL [place] # (Auto) 0.3 (0.1-1.2) X10*3/uL Eos # (Auto) 0.0 (0.0-0.4) X10*3/uL Baso # (Auto) 0.0 (0.0-0.2) X10*3/uL Abs Immat Gran (auto) 0.01 (0.00-0.03) X10*3/uL Absolute Neuts (auto) 2.5 (2.0-8.3) x10*3/uL Absolute Nucleated RBC 0.000 (0.0-0.012) X10*3/uL Nucleated RBC % (auto) 0.0 (0.0-0.2) /100WBC Sodium 135 (135-145) mmol/L Potassium 4.0 (3.3-5.1) mmol/L Chloride 103 (96-108) mmol/L Carbon Dioxide 22 (22-29) mmol/L Anion Gap 14 (12-20) BUN 16 (9-16) mg/dL Creatinine 0.95 (0.5-1.4) mg/dL Estim Creat Clear Calc 42.0 Estimated GFR 56 Random Glucose 97 (60-115) mg/dL Calcium 10.0 (8.4-10.2) mg/dL Magnesium 2.2 (1.6-2.6) mg/dL Total Bilirubin 0.7 (0.0-1.0) mg/dL AST 18 (5-31) U/L ALT 12 (0-31) U/L Alkaline Phosphatase 125 H (39-117) U/L Troponin I High Sens 11.5 (<3.5-17.0) ng/L Total Protein 6.8 (6.5-8.0) g/dL Albumin 4.0 (3.5-5.0) g/dL Lipase 14 (8-78) U/L Urine Color Yellow Urine Appearance Clear Urine pH 6.0 (5.0-9.0) Ur Specific [place] 1.010 (1.005-1.025) Urine Protein Negative (Neg-Trace) mg/dL Urine Glucose (UA) Negative (Negative) mg/dL Urine Ketones 15 (Negative) mg/dL Urine Blood Negative (Negative) Urine Nitrite Negative (Negative) Ur Leukocyte Esterase Trace H (Negative) Urine RBC 0-2 (0-2) /HPF Urine WBC 0-5 (0-5) /HPF Ur Squamous Epith Cells 0-2 (0-2) /HPF Urine Bacteria None Seen (None Seen) Hyaline Casts 0-2 (0-2) /LPF Discharge Plan Discharge Clinical Impression: Weakness, Anxiety Patient Disposition: Home, Self-Care Instructions: Weakness (ED), Anxiety (ED) Additional Instructions: Drink plenty of fluids Take medicine for anxiety as prescribed Follow with your PCP and therapist Follow with experimental aircraft mechanic for your heartburn and take Protonix and sucralfate Prescriptions: New pantoprazole [Protonix] 40 mg tablet,delayed release (DR/EC) 40 mg PO DAILY Qty: 90 0RF sucralfate 1 gram tablet 1 g PO TID Qty: 90 0RF No Action citalopram 20 mg tablet 20 mg PO BEDTIME 90 Days Qty: 90 1RF losartan 25 mg tablet 25 mg PO DAILY 90 Days Qty: 90 1RF mirabegron [Myrbetriq] 25 mg tablet extended release 24 hr 25 mg PO DAILY 30 Days Qty: 30 1RF pantoprazole 40 mg tablet,delayed release (DR/EC) 40 mg PO QAM Qty: 30 1RF cholecalciferol (vitamin D3) [Vitamin D3] 50 mcg (2,000 unit) tablet 50 mcg PO DAILY Qty: 30 3RF aspirin 81 mg tablet,delayed release (DR/EC) 81 mg PO QAM Qty: 90 0RF clopidogrel 75 mg tablet 75 mg PO QAM folic acid 400 mcg Tablet 0.4 mg PO DAILY acetaminophen [Tylenol] 325 mg capsule 325 mg PO Q4H PRN (Reason: pain) Qty: 30 0RF hydrocortisone 2.5 % cream 1 appl topical BID PRN (Reason: itching) Qty: 20 0RF azithromycin 250 mg tablet See Rx Instructions .ROUTE .COMPLEX Qty: 6 0RF Rx Instructions: For 250 mg dose pack: take 500 mg today (day 1), then 250 mg for 4 days (days 2-5) alprazolam 0.25 mg Tablet 0.25 mg PO BID nitrofurantoin monohyd/m-cryst [Macrobid] 100 mg capsule 100 mg PO Q12H 5 Days Qty: 10 0RF Rx Instructions: must administer with a meal/food estradiol 0.01 % (0.1 mg/gram) cream See Rx Instructions vaginal 3XW 30 Days Qty: 42.5 1RF Rx Instructions: pea sized amount to urethra daily times 1 month then 3 times per week thereafter Referrals: Arun Schreiber MD [Physician] - 2 weeks Print Language: Sammarinese
[2024-05-06 20:23] VITALS: BP 131/73; PULSE 90; RESP 16; TEMP 36.5; O2SAT 95
[2024-05-06 20:51] VITALS: BP 126/81; PULSE 87; RESP 16; TEMP 36.4; O2SAT 95
--- NOTE | 2024-05-06 20:52 | MHC.EDTECH ---
Patient blood drawn and sent to lab ,vitals taken .
[2024-05-06 20:54] LABS: MANUAL DIFF FLAG NO
[2024-05-06 21:11] LABS: Basophils Percent Auto 0.9 % (0-2); Eosinophils Percent Auto 1.2 % (0-4); Hematocrit 30.8 % (37.0-47.0); Hemoglobin 10.2 g/dl (12.0-16.0); Imm Gran Abs Auto 0.01 X10*3/uL (0.00-0.03); Imm Gran Pct Auto 0.3 % (0.0-0.4); Lymphocytes Absolute Auto 0.4 X10*3/uL (1.2-4.9); Lymphocytes Percent Auto 11.4 % (20-40); Mean Corpuscular HGB Conc 33.1 g/dl (31.0-35.0); Mean Corpuscular Hemoglobin 30.1 pg (27.0-33.0); Mean Corpuscular Volume 90.9 fL (80.0-98.0); Mean Platelet Volume 10.9 fL (9.4-12.3); Monocytes Absolute Auto 0.3 X10*3/uL (0.1-1.2); Monocytes Percent Auto 9.6 % (2-11); Neutrophils Absolute Auto 2.5 x10*3/uL (2.0-8.3); Neutrophils Percent Auto 76.6 % (45-73); Platelet Count 125 X10*3/uL (160-400); Red Blood Count 3.39 X10*6/uL (4.20-5.50); Red Cell Distribution Width 13.9 % (11.0-16.0); White Blood Count 3.2 X10*3/uL (4.8-10.8)
--- NOTE | 2024-05-06 21:11 | PC.NURSE ---
Patient arrived to the ED w/ complaints of fatigue/weakness/generalized pain/not eating since monday. Resting quietly on the stretcher at this time.
[2024-05-06 21:16] LABS: Alanine Aminotransferase 12 U/L (0-31); Alkaline Phosphatase 125 U/L (39-117); Anion Gap 14 (12-20); Aspartate Amino Transferase 18 U/L (5-31); Bilirubin Total 0.7 mg/dL (0.0-1.0); Blood Urea Nitrogen 16 mg/dL (9-16); Carbon Dioxide 22 mmol/L (22-29); Chloride 103 mmol/L (96-108); Estimated Glomerular Filt Rate 56; Glucose Random 97 mg/dL (60-115); Lipase 14 U/L (8-78); Magnesium 2.2 mg/dL (1.6-2.6); Sodium 135 mmol/L (135-145); Total Protein 6.8 g/dL (6.5-8.0)
[2024-05-06 21:24] LABS: Troponin-I High Sensitivity 11.5 ng/L (<3.5-17.0)
[2024-05-06] MEDS: 0.9 % Sodium Chloride 1,000 ML 999 ML IV (22:02)
[2024-05-06 22:23] VITALS: BP 147/67; PULSE 82; RESP 16; TEMP 36.7; O2SAT 97
--- NOTE | 2024-05-06 23:56 | PC.NURSE ---
this rn assumed care of pt, pt a&ox4, respirations even and unlabored. pt denies pain at this time. pt assisted onto bedpan, boosted in bed. Hi Henley son on phone and given update.
[2024-05-06 23:58] VITALS: BP 158/79; PULSE 85; RESP 16; TEMP 37.2; O2SAT 97
--- NOTE | 2024-05-07 00:04 | MHC.EDTECH ---
0000 rounding done ,vitals taken ,Patient was assisted unto bedpan ,void urine sample collected and sent to lab ,Patient in good spirits ,Patient was given chicken salad sandwich ,vanilla pudding and sahil gume for snack ,All safety measure in place .
[2024-05-07 00:13] LABS: Appearance Urine Clear; Color Urine Yellow; Glucose Urine UA Negative (Negative); Leukocyte Esterase Urine Trace (Negative); Nitrite Urine Negative (Negative); UMIC TRIGGER UACC YES; Urine Blood Negative (Negative); Urine Ketones 15 mg/dL (Negative); Urine Protein Negative (Neg-Trace)
[2024-05-07 00:17] LABS: Bacteria Urine None Seen (None Seen); Hyaline Casts Urine 0-2 /LPF (0-2); RBC Urine 0-2 /HPF (0-2); Squamous Epithelial Cell Urine 0-2 /HPF (0-2); WBC Urine 0-5 /HPF (0-5)
[2024-05-07] MEDS: ALPRAZolam 0.25 MG TABLET PO (01:43)
--- NOTE | 2024-05-07 01:44 | PC.NURSE ---
pt medicated per mar, tolerated well with water.
[2024-05-07 04:01] VITALS: BP 117/58; PULSE 82; RESP 18; TEMP 36.7; O2SAT 95
[2024-05-07 05:45] VITALS: BP 142/87; PULSE 81; RESP 16; TEMP 36.8; O2SAT 96
[2024-05-07] MEDS: Magnesium Hydrox/Alum Hydrox 30 ML ORAL.SUSP PO (05:48)
--- NOTE | 2024-05-07 05:48 | PC.NURSE ---
pt medicated per mar for acid reflux, pt tolerated well. carmine for d/c when son can provide transportation.
[2024-05-07 08:00] VITALS: BP 133/75; PULSE 87; TEMP 36.9; O2SAT 93
--- NOTE | 2024-05-07 08:31 | PC.NURSE ---
pt continues to be up for discharge - waiting for her son to pick her up. resting in no apparent distress. no sob/wob noted. respirations even/unlabored. plan of care ongoing.
[2024-05-07 09:02] VITALS: BP 133/75; PULSE 87; RESP 16; TEMP 36.9; O2SAT 93
== END 2024-05-07 09:03 | disposition home or self-care (01) ==
PROVIDERS: Physician Assistant Medical; Emergency Provider Internal Medicine; PCP Physician Assistant
DX: R53.1 Weakness (principal); F41.9 Anxiety disorder, unspecified; I95.9 Hypotension, unspecified; R10.30 Lower abdominal pain, unspecified; R55 Syncope and collapse
CPT/HCPCS: 36415; 80053; 81001; 83690; 83735; 84484; 85025; 93005; 99284; 99285

== ENCOUNTER 2024-05-15 14:06 | Outpatient (AMB) | payer MEDICARE, OTHER, SELFPAY ==
[2024-05-15 14:09] VITALS: BP 126/66; PULSE 82; O2SAT 96; BMI 25.3
--- NOTE | 2024-05-15 14:09 | MHC.PC.OV ---
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 Accompanied by: Son Allergies buspirone Allergy (Intermediate, Verified 05/15/24 14:12) Rash Sulfa (Sulfonamide Antibiotics) Allergy (Intermediate, Verified 05/15/24 14:12) RASH cefuroxime Allergy (Unknown, Verified 05/15/24 14:12) Unknown garlic [GARLIC] Allergy (Unknown, Verified 05/15/24 14:12) PER H&P metronidazole [From FLAGYL] Allergy (Unknown, Verified 05/15/24 14:12) OCULAR MIGRAINES penicillamine Allergy (Unknown, Verified 05/15/24 14:12) Unknown ciprofloxacin Adverse Reaction (Intermediate, Verified 05/15/24 14:12) neuropathic pain lisinopril Adverse Reaction (Intermediate, Verified 05/15/24 14:12) Cough nitrofurantoin Adverse Reaction (Mild, Verified 05/15/24 14:12) GI side effects cefuroxime Allergy (Intermediate, Uncoded 05/15/24 14:12) wheezy cough/itch flagyl Allergy (Unknown, Uncoded 05/15/24 14:12) Unknown From KEFLEX Allergy (Unknown, Uncoded 05/15/24 14:12) RASH Metoprolol Tartrate Allergy (Unknown, Uncoded 05/15/24 14:12) Unknown Sulfacet-R Allergy (Unknown, Uncoded 05/15/24 14:12) Unknown Medication List - Last Reconciled 05/15/24 by Angelina Razo PA-C acetaminophen (Tylenol) 325 mg PO Q4H PRN alprazolam 0.25 mg PO BID aspirin 81 mg PO QAM azithromycin For 250 mg dose pack: take 500 mg today (day 1), then 250 mg for 4 days (days 2-5) cholecalciferol (vitamin D3) (Vitamin D3) 50 mcg PO DAILY citalopram 20 mg PO BEDTIME 90 days clopidogrel 75 mg PO QAM estradiol 0.01%(0.1mg/gram) pea sized amount to urethra daily times 1 month then 3 times per week thereafter 30 days folic acid 0.4 mg PO DAILY hydrocortisone 2.5% 1 appl topical BID PRN losartan 25 mg PO DAILY 90 days mirabegron ER (Myrbetriq) 25 mg PO DAILY 30 days nitrofurantoin monohyd/m-cryst 100 mg (Macrobid) 100 mg PO Q12H 5 days pantoprazole (Protonix) 40 mg PO DAILY pantoprazole 40 mg PO QAM sucralfate 1 g PO TID Tobacco use date assessed: 01/16/24 Fall risk assessment: 2 + Falls in past year Last assessed Fall Risk: 05/15/24 Dental Screening Dental Screen Date: 10/18/23 HPI new diagnosis/ health concerns HPI Details 83-year-old female with past medical history significant for hypertension, aortic valve replacement, severe generalized anxiety disorder, anemia last seen by PA coming in for acute visit. In review of the notes, patient was recently seen in [facility] 05/07/2024 for abdominal pain in the low blood pressure. Patient seemed to improve after IV hydration and patient was discharged home to follow up with GI and take Protonix and sucralfate for symptoms. Patient was also seen in [facility] 05/04/[address] scan showed inflammation of the colon and discharged home with recommendation for liquid diet for the next 2 days. Patient states she is currently working with a neuro psychiatrist out of [facility] to adjust her psychiatric medications and better manage her anxiety. She feels her anxiety is not well controlled on her current med regimen and feels an increase in anxiety to the point where she does not feel she can do her ADLs. They are currently working on switching her Celexa to mirtazapine and adding hydroxyzine for anxiety. She has not established care with this office and her visit was only for medication adjustment. [facility] Medical History URI (upper respiratory infection) HTN (hypertension) Cough Heart palpitations Constipation LLQ abdominal pain Anxiety Breast cancer screening Breast pain, left Elevated vitamin B12 level Neck muscle spasm Strain of neck muscle Low back pain Pubic ramus fracture Sore throat Skin tear of upper arm without complication Head injury, acute, without loss of consciousness Fall Dizziness Medication noncompliance due to cognitive impairment RLQ abdominal pain Sinusitis Flu syndrome Precordial chest pain Atypical chest pain Cold intolerance Former smoker Pulmonary nodule Abnormal lung sounds Fever Bilateral calf pain Nausea Left lower quadrant abdominal pain Dysuria Fatigue Lower extremity weakness Aortic stenosis Obstipation Dark stools Lower abdominal pain Gastroenteritis Neck pain on right side Back pain Chest pain Rhinitis Elevated BP without diagnosis of hypertension Non-rheumatic aortic stenosis Diverticulitis GERD (gastroesophageal reflux disease) Cat scratch Cat bite Epigastric discomfort Diarrhea Nausea Viral syndrome GERD (gastroesophageal reflux disease) Neuropathy Arthritis GERD (gastroesophageal reflux disease) HTN (hypertension) Irritable bowel Heart murmur Surgical History S/P TAVR (transcatheter aortic valve replacement) Hx of esophagogastroduodenoscopy Hx of colonoscopy History of tonsillectomy History of appendectomy Family History Father No problems noted. Mother No problems noted. Social History Household Members: Children Housing: House Are you a primary field care coordinator to a significant other at home: No Do you presently have visiting nurse or other home services: No Alcohol intake: former Patient Tobacco Use Status: Former Tobacco user Tobacco use type: Cigarette e-Cigarette/Vaping Use: Never Used Second Hand Smoke Exposure: No Advance Directives Date on File: 09/21/23 service: No Current occupational status: retired Cognitive needs: No Hearing needs: No Vision needs: Yes (glasses) Questionnaire PHQ-9 Over the last 2 weeks, how often have you been bothered by any of the following problems? 1. Little interest or pleasure in doing things: more than half the days 2. Feeling down, depressed, or hopeless: more than half the days 3. Trouble falling or staying asleep, or sleeping too much: more than half the days 4. Feeling tired or having little energy: more than half the days 5. Poor appetite or overeating: more than half the days 6. Feeling bad about yourself - or that you are a failure or have let yourself or your family down: more than half the days 7. Trouble concentrating on things, such as reading the newspaper or watching television: more than half the days 8. Moving or speaking so slowly that other people could have noticed. Or the opposite - being so fidgety or restless that you have been moving around a lot more than usual: several days 9. Thoughts that you would be better off or of hurting yourself in some way: not at all Total score: 15 Depression Screening Interpretation: Positive Depression Screening Follow-up: Existing condition and In treatment Depression Screening Done: Yes 50087 - PHQ-9 Billing: Yes Source: Developed by Drs. Anatoliy Gavin, Peyton Hunt, Austyn Weber and colleagues, with an educational kentrell from [employer]. Thrive Questionnaire Date Thrive assessed: 09/27/23 AUDIT C Alcohol Use Questionnaire (AUDIT-C) 1. How often do you have a drink containing alcohol?: Never 3. How often do you have six or more drinks on one occasion?: Never Total Score: 0 PAIGE-7 AMB Questionnaire PAIGE-7 Date PAIGE - 7 assessed: 09/27/23 Source: Developed by Drs. Anatoliy Gavin, Peyton Hunt, Austyn Weber and colleagues, with an educational kentrell from [employer]. Review of Systems Const Denies chills, Denies fever(s) and Denies frequent falls Eyes Reports no additional complaints ENT Reports no additional complaints Card Denies chest pain, Denies irregular heart rhythm, Denies lightheadedness and Denies dyspnea Resp Denies dyspnea GI Reports no additional complaints Reports no additional complaints Musc Reports no additional complaints and Denies abnormal gait Skin/Breast Reports system reviewed and no additional complaints, except as documented Neuro Denies abnormal gait and Denies frequent falls Psych Reports as per HPI Physical exam (Primary Care) Vital Signs: Last Vital Signs Pulse 82 05/15/24 14:09 BP 126/66 05/15/24 14:09 Pulse Ox 96 05/15/24 14:09 Oxygen Delivery Method Room Air 05/15/24 14:09 BMI result Body Mass Index 25.3 Tobacco/Smoking Status: Tobacco use Status Tobacco use date assessed 01/16/24 05/15/24 14:12 Patient Tobacco Use Status Former Tobacco user 05/15/24 14:12 Tobacco use type Cigarette 05/15/24 14:12 e-Cigarette/Vaping Use Never Used 05/15/24 14:12 PHQ-9: PHQ-9 Score PHQ-9: Total score 15 05/15/24 14:19 Depression Screening Interpretation: Positive Depression Screening Follow-up: Existing condition and In treatment Thrive Assessment: Date of Thrive Assessment Date Thrive assessed 09/27/23 05/15/24 14:12 Const General: cooperative, healthy appearing, comfortable and no acute distress Orientation/consciousness: patient oriented x3 HENMT Head: Yes normocephalic Ears: hearing grossly normal bilaterally General nose exam: Normal external nose present Eyes General: appearance normal, both eyes and all related structures Conjunctivae: conjunctivae normal Neck Neck: Yes full ROM and Yes no lymphadenopathy Resp Effort & Inspection: normal respiratory effort Auscultation: clear to auscultation bilaterally, no crackles, no rales, no rhonchi and no wheezes Cardio Rate: regular rate Rhythm: regular rhythm Skin General skin exam: no rashes or lesions noted Neuro General: patient oriented x3 Gait exam (Neuro): Normal gait present Extrem General: Yes normal to inspection, Yes full ROM and No edema Psych Affect: normal affect Attitude: cooperative Insight: Good insight present (Psych) Judgement: Good judgement present (Psych) Assessment and Plan Assessment & Plan (1) Anxiety: Code(s): F41.9 - Anxiety disorder, unspecified Plan: Patient has increased anxiety to the point where she feels it is causing her to have depression and keeping her from doing her activities of daily living. She is in the process of having a med adjustment through [facility] neuropsychiatry. She would like to have a 2nd opinion and have adjustment of her medication through [place]. Discussed at [facility] and [facility] services and referral was placed today. She is also looking to have her lorazepam taper down due to sedation concerns. I did discuss with the patient that I think it would be beneficial to discontinue the Celexa and start a new SSRI as this medication has been little effect for her. She will taper down the Celexa and start mirtazapine as recommended by [facility] and would like to hold off on hydroxyzine at this time. Follow up in 2 months. Plan This note was constructed using voice recognition software. While every effort has been made to ensure accuracy and laborer cutting tool, still areas may have been included sometimes these areas may affect the content or meeting of the given symptoms. Total time spent caring for the patient today was 30 minutes. This includes time spent before the visit reviewing the chart, time spent during the visit, and time spent after the visit and documentation. Orders: Referrals Psychiatry Outpatient Consultation Service F41.9 - Anxiety disorder, unspecified Coding Level of Care Code Est Pt Level 3 (12210) Diagnoses Anxiety F41.9
== END 2024-05-15 14:56 | disposition home or self-care (01) ==
PROVIDERS: PCP Physician Assistant
DX: F41.9 Anxiety disorder, unspecified (principal)
CPT/HCPCS: 99213

== ENCOUNTER 2024-05-20 16:10 | Outpatient (REF) | payer MEDICARE, OTHER, SELFPAY ==
[2024-05-20 18:32] LABS: Appearance Urine Clear; Color Urine Yellow; Glucose Urine UA Negative (Negative); Leukocyte Esterase Urine Trace (Negative); Nitrite Urine Negative (Negative); Specific Gravity - Urine 1.025 (1.005-1.025); UMIC TRIGGER UA YES; Urine Blood Negative (Negative); Urine Ketones Trace mg/dL (Negative); Urine Protein Negative (Neg-Trace)
[2024-05-20 18:35] LABS: Bacteria Urine None Seen (None Seen); Hyaline Casts Urine 0-2 /LPF (0-2); RBC Urine 0-2 /HPF (0-2); Squamous Epithelial Cell Urine 0-2 /HPF (0-2); WBC Urine 0-5 /HPF (0-5)
== END 2024-05-20 16:11 | disposition home or self-care (01) ==
LOC: HO.LAB 16:10
PROVIDERS: PCP Internal Medicine; Visit Provider Nurse Practitioner Family
DX: N39.0 Urinary tract infection, site not specified (principal)
CPT/HCPCS: 81001; 87086

== ENCOUNTER 2024-05-28 10:11 | Outpatient (REF) | payer MEDICARE, OTHER, SELFPAY ==
--- NOTE | ~2024-05-28 | US_ITS ---
EXAMINATION: US RETROPERITONEAL LIMITED (RENAL ONLY) CLINICAL INFORMATION: Urinary tract infection, site not specified. COMPARISON: CT abdomen and pelvis 05/04/2024. Ultrasound abdomen limited 12/17/2023 and 11/17/2023. TECHNIQUE: Real-time imaging of the kidneys. FINDINGS: RIGHT KIDNEY: 10.0 x 3.4 x 5.4 cm (SAG x AP x TRV). The kidney is normal in size, contour, and echogenicity. Renal cortical thickness is normal. No calculi or focal parenchymal lesions. No hydronephrosis. LEFT KIDNEY: 10.8 x 4.5 x 4.6 cm (SAG x AP x TRV). The kidney is normal in size, contour, and echogenicity. Renal cortical thickness is normal. There is a lower pole 4 x 3 x 7 mm echogenic shadowing focus seen with twinkle artifact consistent with a nonobstructing calculus. No focal parenchymal lesions or hydronephrosis. ADDITIONAL FINDINGS: Incidental note made of a distal AAA measuring a maximum of 3.3 cm in diameter. On a prior 05/04/2024 CT scan this measured 3.4 cm. Follow-up every 3 years with ultrasound is recommended. US/US renal BI IMPRESSION: 1. Nonobstructing 7 mm left lower pole renal calculus. 2. A 3.3 cm AAA. Follow-up every 3 years with ultrasound is recommended. Electronically signed by: Branden Del Real MD 06/07/2024 12:47 AM EDT
--- NOTE | ~2024-05-28 | MM_ITS ---
EXAMINATION: BONE DENSITOMETRY CLINICAL INDICATION: Asymptomatic menopausal state. COMPARISON: Previous BD dated 02/18/2021 and baseline BD dated 04/15/2010. TECHNIQUE: Using a [employer] DXA System (software version: 13.1) manufactured by [employer], dual-energy x-ray absorptiometry was performed of the lumbar spine and left hip. The images are of good technical quality. Summary results are attached. FINDINGS: LEFT FEMUR, NECK: Current: BMD 0.702 g/cm2, Z-score -0.5, T-score -2.4, osteopenia. Prior: BMD 0.676 g/cm2. Baseline: BMD 0.775 g/cm2. LEFT FEMUR, TOTAL: Current: BMD 0.626 g/cm2, Z-score -1.3, T-score -3.0, osteoporosis, 7.4% decrease from previous, 21.8% decrease from baseline (<5% change is not significant). Prior: BMD 0.676 g/cm2. Baseline: BMD 0.800 g/cm2. AP SPINE L1-L4: Current: BMD 0.865 g/cm2, Z-score -1.4, T-score -2.6, osteoporosis, 7.8% decrease from previous, 8.1% decrease from baseline (<5% change is not significant). Prior: BMD 0.938 g/cm2. Baseline: BMD 0.941 g/cm2. IDENTIFIED RISK FACTORS: Menopause, history of fracture (adult), osteoporosis, recurrent falls. HISTORY OF FRACTURE: Pelvis. MEDICATIONS: Vitamin D. MM/XR DEXA axial skeleton IMPRESSION: 1. DIAGNOSIS: Severe osteoporosis based on the lowest T-score value of -3.0 in the total femur and history of fracture applying World Health Organization criteria. 2. 10-YEAR FRACTURE RISK PREDICTION, FRAX: According to the guidelines, FRAX calculation should only be performed on patients in the osteopenia bone density category. Therefore, FRAX was not performed on this patient. 3. Treatment Recommendations: NOF guidelines recommend consideration for treatment in postmenopausal women and men age 50 and older presenting with the following: -A hip or vertebral (clinical or morphometric) fracture. -T-score less than or equal to -2.5 at the femoral neck or spine after appropriate evaluation to exclude secondary causes. -Low bone mass at the hip or spine and a 10-year fracture probability by FRAX of greater than or equal to 3% for hip fracture or greater than or equal to 20% for major osteoporotic fracture based on the [place] adapted WHO algorithm. 4. Other Recommendations: All treatment decisions require clinical judgment and consideration of individual patient factors, including patient preferences, comorbidities, previous drug use, risk factors not captured in the FRAX model (e.g. frailty, falls, vitamin D deficiency, increased bone turnover, interval significant decline in bone density) and possible under or overestimation of fracture risk by FRAX. Additional medical evaluation for secondary cause of low bone mineral density may be appropriate. FUTURE SCAN RECOMMENDATION: People with diagnosed cases of osteoporosis or at high risk for fracture should have regular bone mineral density tests. For patients eligible for Medicare, routine testing is allowed once every 2 years. The testing frequency can be increased to one year for patients who have rapidly progressing disease, those who are receiving or discontinuing medical therapy to restore bone mass, or have additional risk factors. Electronically signed by: Alissa Bojorquez MD 06/12/2024 08:13 AM EDT RP
== END 2024-05-28 10:12 | disposition home or self-care (01) ==
LOC: HO.US 10:11
PROVIDERS: PCP Physician Assistant; Visit Provider Physician Assistant
DX: Z13.820 Encounter for screening for osteoporosis (principal); N39.0 Urinary tract infection, site not specified; Z78.0 Asymptomatic menopausal state
CPT/HCPCS: 76775; 77080

== ENCOUNTER 2024-06-05 10:48 | Outpatient (REF) | payer MEDICARE, OTHER, SELFPAY ==
--- NOTE | ~2024-06-05 | US_ITS ---
EXAMINATION: US PELVIS LIMITED (BLADDER) CLINICAL INFORMATION: UTI. COMPARISON: None available. TECHNIQUE: Real-time imaging of the bladder. FINDINGS: BLADDER: Well distended and normal. Bilateral ureteral jets are demonstrated. Prevoid bladder volume is 426 mL. Postvoid bladder volume is 27 mL. US/US bladder IMPRESSION: Top normal post void urine residual of 27 mL otherwise normal. Electronically signed by: Chantelle Golden MD 07/18/2024 07:37 AM EST
== END 2024-06-05 10:49 | disposition home or self-care (01) ==
LOC: HO.US 10:48
PROVIDERS: PCP Internal Medicine; Visit Provider Nurse Practitioner Family
DX: N39.0 Urinary tract infection, site not specified (principal)
CPT/HCPCS: 76857

== ENCOUNTER 2024-06-19 11:14 | Emergency (ER) | payer MEDICARE, OTHER, SELFPAY ==
--- NOTE | ~2024-06-19 | XR_ITS ---
EXAMINATION: XR CHEST CLINICAL INFORMATION: Substernal chest pain COMPARISON: March 1924 TECHNIQUE: 2 views of the chest were obtained. FINDINGS: Patient is status post aortic stent placement. There is no cardiomegaly or pleural effusion, no evidence of vascular congestion. No pneumothorax seen. XR/XR chest 2V IMPRESSION: No active cardiopulmonary disease Electronically signed by: James Simeon MD 06/19/2024 02:09 PM EDT RP
--- NOTE | 2024-06-19 11:18 | ECG_ITS ---
Test Reason : chest pain Blood Pressure : / mmHG Vent. Rate : 091 BPM Atrial Rate : 091 BPM P-R Int : 202 ms QRS Dur : 086 ms QT Int : 374 ms P-R-T Axes : 043 -23 027 degrees QTc Int : 460 ms Normal sinus rhythm Inferior infarct (cited on or before 06-MAY-2024) Cannot rule out Anterior infarct (cited on or before 06-MAY-2024) Abnormal ECG When compared with ECG of 06-MAY-2024 19:59, No significant change was found Referred By: Paty Clemens Electronically Signed By:WILBUR MCFARLAND
[2024-06-19 11:32] VITALS: BP 140/80; PULSE 89; RESP 19; TEMP 36.6; O2SAT 98; BMI 25.0
--- NOTE | 2024-06-19 11:40 | ED.CHESTPAIN ---
HPI - Chest Pain General Chief Complaint: Chest Pain Stated Complaint: cp-l arm pain Time Seen by Provider: 06/19/24 14:21 Source: patient, RN notes reviewed and old records reviewed Mode of arrival: ambulatory History of Present Illness ED Provider: Lauren Stout PA-C HPI narrative: 83-year-old female with a past medical history HTN, COPD, s/p TAVR, chronic constipation, thrombocytopenia, CVA, anxiety, GERD, presenting to the ED complaining of substernal chest pain radiating down LUE x this morning with associated lightheadedness. Also reports generalized fatigue/weakness which began yesterday. Reports chest pain feels similar to heartburn. Denies SOB, abdominal pain, nausea/vomiting, pedal edema, sick contacts, travel. Related Data Home Medications ?Medication ?Instructions ?Recorded ?Confirmed clopidogrel 75 mg tablet 75 mg PO QAM 11/23/23 05/15/24 folic acid 400 mcg tablet 0.4 mg PO DAILY 11/23/23 05/15/24 alprazolam 0.25 mg tablet 0.25 mg PO BID 03/28/24 05/15/24 Previous Rx's ?Medication ?Instructions ?Recorded citalopram 20 mg tablet 20 mg PO BEDTIME 90 days #90 tabs 10/23/23 acetaminophen 325 mg capsule 325 mg PO Q4H PRN pain #30 caps 12/17/23 (Tylenol) losartan 25 mg tablet 25 mg PO DAILY 90 days #90 tabs 02/28/24 estradiol 0.01% (0.1 mg/gram) See Rx Instructions vaginal 3XW 30 04/12/24 vaginal cream days #42.5 grams hydrocortisone 2.5 % topical cream 1 appl topical BID PRN itching #20 04/14/24 grams mirabegron 25 mg tablet,extended 25 mg PO DAILY 30 days #30 tabs 04/16/24 release 24 hr (Myrbetriq) cholecalciferol (vitamin D3) 50 50 mcg PO DAILY #30 tabs 04/17/24 mcg (2,000 unit) tablet (Vitamin D3) nitrofurantoin 100 mg PO Q12H 5 days #10 caps 04/17/24 monohydrate/macrocrystals 100 mg capsule (Macrobid) pantoprazole 40 mg tablet,delayed 40 mg PO QAM #30 tabs 04/17/24 release azithromycin 250 mg tablet See Rx Instructions PO .COMPLEX #6 04/23/24 tabs aspirin 81 mg tablet,delayed 81 mg PO QAM #90 tabs 04/29/24 release pantoprazole 40 mg tablet,delayed 40 mg PO DAILY #90 tabs 05/07/24 release (Protonix) sucralfate 1 gram tablet 1 g PO TID #90 tabs 05/07/24 Allergies Allergy/AdvReac Type Severity Reaction Status Date / Time buspirone Allergy Intermediate Rash Verified 06/19/24 11:33 Sulfa (Sulfonamide Allergy Intermediate RASH Verified 06/19/24 11:33 Antibiotics) cefuroxime Allergy Unknown Unknown Verified 06/19/24 11:33 garlic [GARLIC] Allergy Unknown PER H&P Verified 06/19/24 11:33 metronidazole [From FLAGYL] Allergy Unknown OCULAR Verified 06/19/24 11:33 MIGRAINES penicillamine Allergy Unknown Unknown Verified 06/19/24 11:33 ciprofloxacin AdvReac Intermediate neuropathic Verified 06/19/24 11:33 pain lisinopril AdvReac Intermediate Cough Verified 06/19/24 11:33 nitrofurantoin AdvReac Mild GI side Verified 06/19/24 11:33 effects cefuroxime Allergy Intermediate wheezy Uncoded 06/19/24 11:33 cough/itch flagyl Allergy Unknown Unknown Uncoded 06/19/24 11:33 From KEFLEX Allergy Unknown RASH Uncoded 06/19/24 11:33 Metoprolol Tartrate Allergy Unknown Unknown Uncoded 06/19/24 11:33 Sulfacet-R Allergy Unknown Unknown Uncoded 06/19/24 11:33 Review of Systems Review of Systems: Yes all other systems are reviewed and are negative Constitutional: Constitutional: Reports as per HPI Neurologic: Denies Abnormal speech present [facility] Past Medical History Attestation statement: The following information was validated with the patient. Source: old records reviewed Medical History URI (upper respiratory infection) HTN (hypertension) Cough Heart palpitations Constipation LLQ abdominal pain Anxiety Breast cancer screening Breast pain, left Elevated vitamin B12 level Neck muscle spasm Strain of neck muscle Low back pain Pubic ramus fracture Sore throat Skin tear of upper arm without complication Head injury, acute, without loss of consciousness Fall Dizziness Medication noncompliance due to cognitive impairment RLQ abdominal pain Sinusitis Flu syndrome Precordial chest pain Atypical chest pain Cold intolerance Former smoker Pulmonary nodule Abnormal lung sounds Fever Bilateral calf pain Nausea Left lower quadrant abdominal pain Dysuria Fatigue Lower extremity weakness Aortic stenosis Obstipation Dark stools Lower abdominal pain Gastroenteritis Neck pain on right side Back pain Chest pain Rhinitis Elevated BP without diagnosis of hypertension Non-rheumatic aortic stenosis Diverticulitis GERD (gastroesophageal reflux disease) Cat scratch Cat bite Epigastric discomfort Diarrhea Nausea Viral syndrome GERD (gastroesophageal reflux disease) Neuropathy Arthritis GERD (gastroesophageal reflux disease) HTN (hypertension) Irritable bowel Heart murmur Surgical History S/P TAVR (transcatheter aortic valve replacement) Hx of esophagogastroduodenoscopy Hx of colonoscopy History of tonsillectomy History of appendectomy Family History Family History Father No problems noted. Mother No problems noted. Social History Social History Household Members: Children Housing: House Are you a primary day care supervisor to a significant other at home: No Do you presently have visiting nurse or other home services: No Alcohol intake: former Patient Tobacco Use Status: Former Tobacco user Tobacco use type: Cigarette e-Cigarette/Vaping Use: Never Used Second Hand Smoke Exposure: No Advance Directives Date on File: 09/21/23 service: No Current occupational status: retired Cognitive needs: No Hearing needs: No Vision needs: Yes (glasses) Physical Exam Vital Signs: Vital Signs: Last Vital Signs Temp 98.3 F 06/19/24 16:00 Pulse 82 06/19/24 16:00 Resp 18 06/19/24 16:00 BP 147/91 H 06/19/24 16:00 Pulse Ox 98 06/19/24 16:00 O2 Del Method Room Air 06/19/24 16:00 BMI result Body Mass Index 25.0 Const: General: cooperative, healthy appearing and no acute distress Orientation/consciousness: patient oriented x3 Limitations: no limitations HEENT: Head: Yes normal to inspection and Yes atraumatic Ears: hearing grossly normal bilaterally General nose exam: Normal external nose present Face and sinus: Yes normal facial exam Eyes: General: appearance normal, both eyes and all related structures EOM: EOMs intact bilaterally Neck: Neck: Yes normal visual inspection and Yes no meningeal signs Resp: Effort & Inspection: normal respiratory effort and no respiratory distress Auscultation: clear to auscultation bilaterally, no rales and no wheezes Cardio: Rate: regular rate Heart sounds: S1 normal heart sound present and S2 normal heart sound present GI: Inspection: Yes normal to inspection Palpation (GI): Soft to palpation, nontender, no guarding and not rigid Skin: Rashes: no rashes Wounds: no wounds Neuro: General: patient oriented x3, tone normal, moves all extremities, no meningeal signs, no focal motor deficits and CN's II-XI intact bilaterally Cranial nerves: Yes CN's II-XII intact bilaterally Cognition (Neuro): normal cognition Speech: No Abnormal speech present Motor exam (neuro): 5/5 motor strength present throughout Extrem: General: Yes normal to inspection and Yes no pedal edema Course Course Course Narrative: This is a Rapid Medical Examination (RME) performed by José Miguel Clemens PA-C in triage. Full HPI, ROS, assessment and treatment plan per primary provider in the Main ED. 83 yo female hx of hypertension, COPD, status post TAVR in August of last year, chronic constipation, thrombocytopenia, history of CVA, anxiety, GERD here w/ cp x1-2 hours on waking. 2/10 pain substernally. burning sensation. states this feels like an episode of her heart burn, similar episode last week. Plan: ekg, labs, cxr -1544--chronic leukopenia. H&H at patient's baseline. Initial troponin 5.1 > will obtain 3 hour repeat -BNP chronically elevated -viral studies negative -CXR unremarkable -1616--repeat troponin without rise. Mi unlikely Results discussed with patient including worrisome signs and symptoms and strict return precautions, and when to return to the emergency department. They verbalized understanding and feel safe for discharge at this time. Medications Administered Discontinued Medications Generic Name Dose Route Start Last Admin Trade Name Freq PRN Reason Stop Dose Admin Al Hydroxide/Mg Hydroxide 30 ml 06/19/24 14:41 06/19/24 14:44 Magnesium Hydrox/Alum Hydrox 30 Ml Oral.Susp PO 06/19/24 14:42 30 ml ONCE ONE Administration Famotidine 20 mg 06/19/24 14:41 06/19/24 14:44 Famotidine 20 Mg Tablet PO 06/19/24 14:42 20 mg ONCE ONE Administration Medical Decision Making Medical Decision Making [facility] Narrative: 83-year-old female with a past medical history HTN, COPD, s/p TAVR, chronic constipation, thrombocytopenia, CVA, anxiety, GERD, presenting to the ED complaining of substernal chest pain radiating down LUE x this morning with associated lightheadedness. Also reports generalized fatigue/weakness which began yesterday. On exam VSS, NAD, nontoxic appearing, lungs CTA, abdomen soft/nontender. No pedal edema. Concern for atypical ACS vs GERD vs anxiety. Rule out metabolic infectious etiologies. Low suspicion for PE/DVT or CHF Plan: EKG, labs, UA, orthostatics, CXR, re-evaluate Please refer to course for remaining clinical decision making, interpretation of labs/imaging results, and discussions with consultants and/or family members. Differential Diagnosis Differential Diagnoses: The differential diagnosis associated with the presentation includes As above Admission/Observation Consideration of admission/observation: Escalation of care including admission/observation considered Lab Data [facility] Lab Attestation statement: I reviewed the patient's lab results. 06/19/24 12:49 06/19/24 12:49 Labs: Lab Results 06/19/24 06/19/24 Range/Units 12:49 15:23 WBC 2.9 L (4.8-10.8) X10*3/uL RBC 3.41 L (4.20-5.50) X10*6/uL Hgb 10.2 L (12.0-16.0) g/dl Hct 31.0 L (37.0-47.0) % MCV 90.9 (80.0-98.0) fL MCH 29.9 (27.0-33.0) pg MCHC 32.9 (31.0-35.0) g/dl RDW 13.2 (11.0-16.0) % Plt Count 131 L (160-400) X10*3/uL MPV 11.4 (9.4-12.3) fL Immature Gran % (Auto) 0.7 H (0.0-0.4) % Neut % (Auto) 71.5 (45-73) % Lymph % (Auto) 17.1 L (20-40) % Young % (Auto) 6.6 (2-11) % Eos % (Auto) 3.1 (0-4) % Baso % (Auto) 1.0 (0-2) % Lymph # (Auto) 0.5 L (1.2-4.9) X10*3/uL Young # (Auto) 0.2 (0.1-1.2) X10*3/uL Eos # (Auto) 0.1 (0.0-0.4) X10*3/uL Baso # (Auto) 0.0 (0.0-0.2) X10*3/uL Abs Immat Gran (auto) 0.02 (0.00-0.03) X10*3/uL Absolute Neuts (auto) 2.0 (2.0-8.3) x10*3/uL Absolute Nucleated RBC 0.000 (0.0-0.012) X10*3/uL Nucleated RBC % (auto) 0.0 (0.0-0.2) /100WBC PT 11.7 (10.9-12.4) SEC INR 1.0 (0.9-1.1) Sodium 141 (135-145) mmol/L Potassium 4.2 (3.3-5.1) mmol/L Chloride 105 (96-108) mmol/L Carbon Dioxide 30 H (22-29) mmol/L Anion Gap 10 L (12-20) BUN 18 H (9-16) mg/dL Creatinine 0.87 (0.5-1.4) mg/dL Estim Creat Clear Calc 45.8 Estimated GFR > 60 Random Glucose 98 (60-115) mg/dL Calcium 10.1 (8.4-10.2) mg/dL Magnesium 2.0 (1.6-2.6) mg/dL Total Bilirubin 0.4 (0.0-1.0) mg/dL AST 24 (5-31) U/L ALT 18 (0-31) U/L Alkaline Phosphatase 135 H (39-117) U/L Troponin I High Sens 5.1 D 4.5 (<3.5-17.0) ng/L B-Natriuretic Peptide 185 H (<100) pg/mL Total Protein 7.2 (6.5-8.0) g/dL Albumin 4.1 (3.5-5.0) g/dL Lipase 18 (8-78) U/L Influenza Type A (PCR) NEGATIVE (Negative) Influenza Type B (PCR) NEGATIVE (Negative) RSV RNA Qual (PCR) NEGATIVE (Negative) SARS-CoV-2 RNA (RT-PCR) NEGATIVE (Negative) Independent Interpretation I performed an independent interpretation of an: EKG (My interpretation EKG normal sinus rhythm rate of 91. FL interval 202. QTC 460. No significant change when compared to prior.) and Plain X-Ray Radiology Impression Discussion of test interpretation with radiology: I have reviewed the radiologist's reading. External Record Review External record reviewed: Inpatient record, Office record, Outpatient record, Prior outpatient labs, Prior outpatient radiology, Primary care record and Outside ED record Tests considered The following testing was considered but not selected: As above Chronic Conditions Patient?s care impacted by: Other Social Determinants Patient?s care significantly limited by Social Determinants of Health including: Inadequate housing, Problems related to primary support group, Unemployment and Other Social Determinant of Health Discharge Plan Discharge Clinical Impression: Chest pain, Lightheadedness Patient Disposition: Home, Self-Care Instructions: Chest Pain (DC), Lightheadedness (ED) Additional Instructions: Your blood work and x-ray were reassuring Please have close follow-up with your primary care doctor If you have persistent or worsening chest pain, shortness breath, weakness, lightheadedness or dizziness return to the emergency department You should also follow-up with cardiology Prescriptions: No Action citalopram 20 mg tablet 20 mg PO BEDTIME 90 Days Qty: 90 1RF losartan 25 mg tablet 25 mg PO DAILY 90 Days Qty: 90 1RF mirabegron [Myrbetriq] 25 mg tablet extended release 24 hr 25 mg PO DAILY 30 Days Qty: 30 1RF pantoprazole 40 mg tablet,delayed release (DR/EC) 40 mg PO QAM Qty: 30 1RF cholecalciferol (vitamin D3) [Vitamin D3] 50 mcg (2,000 unit) tablet 50 mcg PO DAILY Qty: 30 3RF aspirin 81 mg tablet,delayed release (DR/EC) 81 mg PO QAM Qty: 90 0RF clopidogrel 75 mg tablet 75 mg PO QAM folic acid 400 mcg Tablet 0.4 mg PO DAILY acetaminophen [Tylenol] 325 mg capsule 325 mg PO Q4H PRN (Reason: pain) Qty: 30 0RF hydrocortisone 2.5 % cream 1 appl topical BID PRN (Reason: itching) Qty: 20 0RF azithromycin 250 mg tablet See Rx Instructions .ROUTE .COMPLEX Qty: 6 0RF Rx Instructions: For 250 mg dose pack: take 500 mg today (day 1), then 250 mg for 4 days (days 2-5) alprazolam 0.25 mg Tablet 0.25 mg PO BID pantoprazole [Protonix] 40 mg tablet,delayed release (DR/EC) 40 mg PO DAILY Qty: 90 0RF sucralfate 1 gram tablet 1 g PO TID Qty: 90 0RF nitrofurantoin monohyd/m-cryst [Macrobid] 100 mg capsule 100 mg PO Q12H 5 Days Qty: 10 0RF Rx Instructions: must administer with a meal/food estradiol 0.01 % (0.1 mg/gram) cream See Rx Instructions vaginal 3XW 30 Days Qty: 42.5 1RF Rx Instructions: pea sized amount to urethra daily times 1 month then 3 times per week thereafter Referrals: [facility] [Provider Group] Huma Garcia MD [Primary Care Provider] - 3 days Print Language: Greenlandic
[2024-06-19 12:56] LABS: MANUAL DIFF FLAG NO
[2024-06-19 12:59] LABS: Eosinophils Absolute Auto 0.1 X10*3/uL (0.0-0.4); Eosinophils Percent Auto 3.1 % (0-4); Hemoglobin 10.2 g/dl (12.0-16.0); Imm Gran Abs Auto 0.02 X10*3/uL (0.00-0.03); Imm Gran Pct Auto 0.7 % (0.0-0.4); Lymphocytes Absolute Auto 0.5 X10*3/uL (1.2-4.9); Lymphocytes Percent Auto 17.1 % (20-40); Mean Corpuscular HGB Conc 32.9 g/dl (31.0-35.0); Mean Corpuscular Hemoglobin 29.9 pg (27.0-33.0); Mean Corpuscular Volume 90.9 fL (80.0-98.0); Mean Platelet Volume 11.4 fL (9.4-12.3); Monocytes Absolute Auto 0.2 X10*3/uL (0.1-1.2); Monocytes Percent Auto 6.6 % (2-11); Neutrophils Percent Auto 71.5 % (45-73); Platelet Count 131 X10*3/uL (160-400); Red Blood Count 3.41 X10*6/uL (4.20-5.50); Red Cell Distribution Width 13.2 % (11.0-16.0); White Blood Count 2.9 X10*3/uL (4.8-10.8)
[2024-06-19 13:06] LABS: Prothrombin Time 11.7 SEC (10.9-12.4)
[2024-06-19 13:15] LABS: Alanine Aminotransferase 18 U/L (0-31); Albumin Level 4.1 g/dL (3.5-5.0); Alkaline Phosphatase 135 U/L (39-117); Anion Gap 10 (12-20); Aspartate Amino Transferase 24 U/L (5-31); Bilirubin Total 0.4 mg/dL (0.0-1.0); Blood Urea Nitrogen 18 mg/dL (9-16); Calcium 10.1 mg/dL (8.4-10.2); Carbon Dioxide 30 mmol/L (22-29); Chloride 105 mmol/L (96-108); Creatinine Clr Calc Pharmacy 45.8; Estimated Glomerular Filt Rate > 60; Glucose Random 98 mg/dL (60-115); Lipase 18 U/L (8-78); Potassium 4.2 mmol/L (3.3-5.1); Sodium 141 mmol/L (135-145); Total Protein 7.2 g/dL (6.5-8.0)
[2024-06-19 13:20] LABS: B Type Natriuretic Peptide 185 pg/mL (<100)
[2024-06-19 13:22] LABS: Troponin-I High Sensitivity 5.1 ng/L (<3.5-17.0)
[2024-06-19 13:37] LABS: Influenza A PCR NEGATIVE (Negative); Influenza B PCR NEGATIVE (Negative); Resp Syncy Virus RNA Qual PCR NEGATIVE (Negative); SARS COV2 PCR INHOUSE NEGATIVE (Negative)
[2024-06-19 14:27] VITALS: BP 146/85; PULSE 92; RESP 20; O2SAT 98
[2024-06-19] MEDS: Magnesium Hydrox/Alum Hydrox 30 ML ORAL.SUSP PO (14:44)
[2024-06-19] MEDS: Famotidine 20 MG TABLET PO (14:44)
[2024-06-19 15:03] VITALS: BP 147/91; BP 150/82; PULSE 82; PULSE 87
[2024-06-19 15:06] VITALS: BP 150/87; PULSE 97
[2024-06-19 15:56] LABS: Troponin-I High Sensitivity 4.5 ng/L (<3.5-17.0)
[2024-06-19 16:00] VITALS: BP 147/91; PULSE 82; RESP 18; TEMP 36.8; O2SAT 98
[2024-06-19 16:32] VITALS: BP 140/86; PULSE 76; RESP 18; TEMP 36.8; O2SAT 97
== END 2024-06-19 16:33 | disposition home or self-care (01) ==
PROVIDERS: Physician Assistant; Physician Assistant Medical; Emergency Provider Emergency Medicine; PCP Internal Medicine
DX: R07.9 Chest pain, unspecified (principal); R42 Dizziness and giddiness; Z03.818 Encounter for observation for suspected exposure to other biological agents ruled out; I10 Essential (primary) hypertension; R05.9 Cough, unspecified; J44.9 Chronic obstructive pulmonary disease, unspecified; Z87.891 Personal history of nicotine dependence; Z95.2 Presence of prosthetic heart valve
CPT/HCPCS: 0241U; 36415; 71046; 80053; 83690; 83735; 83880; 84484; 85025; 85610; 93005; 99283; 99285

== ENCOUNTER → 2024-06-19 11:18 | Outpatient (BNV) | payer MEDICARE, OTHER, SELFPAY | PROVIDERS: Emergency Provider Emergency Medicine; PCP Internal Medicine; Visit Provider Internal Medicine | DX: R07.9 Chest pain, unspecified (principal) | CPT/HCPCS: 93010 ==

== ENCOUNTER 2024-06-21 11:05 | Outpatient (AMB) | payer MEDICARE, OTHER, SELFPAY ==
[2024-06-21 11:07] VITALS: BP 140/78; PULSE 82; O2SAT 98; BMI 31.5
--- NOTE | 2024-06-21 11:07 | MHC.PC.OV ---
Vital Signs 06/21/24 11:07 Height 5 ft 6 in Weight 195 lb BMI 31.5 BP 140/78 H Blood Pressure Location Lt brachial Position Sitting Pulse 82 Pulse Source Pulse Oximeter Pulse Oximetry (%) 98 Oxygen Delivery Method Room Air Intake Visit Reasons: [facility] 06/19 left arm pain-see comm Intake Note: Patient is here for hospital discharge follow up. 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 Allergies buspirone Allergy (Intermediate, Verified 06/21/24 11:08) Rash Sulfa (Sulfonamide Antibiotics) Allergy (Intermediate, Verified 06/21/24 11:08) RASH cefuroxime Allergy (Unknown, Verified 06/21/24 11:08) Unknown garlic [GARLIC] Allergy (Unknown, Verified 06/21/24 11:08) PER H&P metronidazole [From FLAGYL] Allergy (Unknown, Verified 06/21/24 11:08) OCULAR MIGRAINES penicillamine Allergy (Unknown, Verified 06/21/24 11:08) Unknown ciprofloxacin Adverse Reaction (Intermediate, Verified 06/21/24 11:08) neuropathic pain lisinopril Adverse Reaction (Intermediate, Verified 06/21/24 11:08) Cough nitrofurantoin Adverse Reaction (Mild, Verified 06/21/24 11:08) GI side effects cefuroxime Allergy (Intermediate, Uncoded 06/21/24 11:08) wheezy cough/itch flagyl Allergy (Unknown, Uncoded 06/21/24 11:08) Unknown From KEFLEX Allergy (Unknown, Uncoded 06/21/24 11:08) RASH Metoprolol Tartrate Allergy (Unknown, Uncoded 06/21/24 11:08) Unknown Sulfacet-R Allergy (Unknown, Uncoded 06/21/24 11:08) Unknown Medication List - Last Reconciled 06/21/24 by Angelina Razo PA-C acetaminophen (Tylenol) 325 mg PO Q4H PRN alprazolam 0.25 mg PO BID aspirin 81 mg PO QAM cholecalciferol (vitamin D3) (Vitamin D3) 50 mcg PO DAILY clopidogrel 75 mg PO QAM estradiol 0.01%(0.1mg/gram) pea sized amount to urethra daily times 1 month then 3 times per week thereafter 30 days folic acid 0.4 mg PO DAILY hydrocortisone 2.5% 1 appl topical BID PRN hydroxyzine HCl mg PO losartan 25 mg PO DAILY 90 days mirabegron ER (Myrbetriq) 25 mg PO DAILY 30 days mirtazapine 7.5 mg PO BEDTIME pantoprazole (Protonix) 40 mg PO DAILY pantoprazole 40 mg PO QAM sucralfate 1 g PO TID Tobacco use date assessed: 01/16/24 Fall risk assessment: No Falls in past year Last assessed Fall Risk: 06/21/24 Dental Screening Dental Screen Date: 10/18/23 HPI [facility] 06/19 left arm pain-see comm HPI Details 83-year-old female with past medical history significant for hypertension, aortic valve replacement, severe generalized anxiety disorder, anemia last seen May 2024 coming in for hospital follow up. In review of the notes, patient was seen in [facility] ED 06/19/2024 for lightheadedness, labs and imaging negative and patient was discharged home and advised to follow up with cardiology. Patient states she continues to follow with her psychiatric provider and [place]. She has been having issues with medication at night and managing her medications herself. She denies any further chest pain and has been feeling generally well and has no other acute concerns today. [facility] Medical History (Updated 06/21/24 @ 13:09 by Angelina Razo PA-C) Chest pain URI (upper respiratory infection) HTN (hypertension) Cough Heart palpitations Constipation LLQ abdominal pain Anxiety Breast cancer screening Breast pain, left Elevated vitamin B12 level Neck muscle spasm Strain of neck muscle Low back pain Pubic ramus fracture Sore throat Skin tear of upper arm without complication Head injury, acute, without loss of consciousness Fall Dizziness Medication noncompliance due to cognitive impairment RLQ abdominal pain Sinusitis Flu syndrome Precordial chest pain Atypical chest pain Cold intolerance Former smoker Pulmonary nodule Abnormal lung sounds Fever Bilateral calf pain Nausea Left lower quadrant abdominal pain Dysuria Fatigue Lower extremity weakness Aortic stenosis Obstipation Dark stools Lower abdominal pain Gastroenteritis Neck pain on right side Back pain Rhinitis Elevated BP without diagnosis of hypertension Non-rheumatic aortic stenosis Diverticulitis GERD (gastroesophageal reflux disease) Cat scratch Cat bite Epigastric discomfort Diarrhea Nausea Viral syndrome GERD (gastroesophageal reflux disease) Neuropathy Arthritis GERD (gastroesophageal reflux disease) HTN (hypertension) Irritable bowel Heart murmur Surgical History S/P TAVR (transcatheter aortic valve replacement) Hx of esophagogastroduodenoscopy Hx of colonoscopy History of tonsillectomy History of appendectomy Family History Father No problems noted. Mother No problems noted. Social History Household Members: Children Housing: House Are you a primary direct care specialist to a significant other at home: No Do you presently have visiting nurse or other home services: No Alcohol intake: former Patient Tobacco Use Status: Former Tobacco user Tobacco use type: Cigarette e-Cigarette/Vaping Use: Never Used Second Hand Smoke Exposure: No Advance Directives Date on File: 09/21/23 service: No Current occupational status: retired Cognitive needs: No Hearing needs: No Vision needs: Yes (glasses) Questionnaire Thrive Questionnaire Date Thrive assessed: 09/27/23 AUDIT C Alcohol Use Questionnaire (AUDIT-C) 1. How often do you have a drink containing alcohol?: Never 3. How often do you have six or more drinks on one occasion?: Never Total Score: 0 PAIGE-7 AMB Questionnaire PAIGE-7 Date PAIGE - 7 assessed: 09/27/23 Source: Developed by Drs. Anatoliy Gavin, Peyton Hunt, Austyn Weber and colleagues, with an educational kentrell from [employer]. Review of Systems Const Denies body aches and Denies fever(s) Eyes Reports no additional complaints ENT Reports no additional complaints Card Denies chest pain, Denies leg edema, Denies lightheadedness, Denies radiating jaw, neck or arm pain, Denies palpitations and Denies dyspnea Resp Denies dyspnea GI Denies abdominal pain, Denies diarrhea, Denies nausea and Denies vomiting Reports no additional complaints Musc Reports no additional complaints Skin/Breast Reports system reviewed and no additional complaints, except as documented Neuro Reports no additional complaints Endo Denies palpitations Physical exam (Primary Care) Vital Signs: Last Vital Signs Pulse 82 06/21/24 11:07 BP 140/78 H 06/21/24 11:07 Pulse Ox 98 06/21/24 11:07 Oxygen Delivery Method Room Air 06/21/24 11:07 BMI result Body Mass Index 31.5 Tobacco/Smoking Status: Tobacco use Status Tobacco use date assessed 01/16/24 06/21/24 11:13 Patient Tobacco Use Status Former Tobacco user 06/21/24 11:13 Tobacco use type Cigarette 06/21/24 11:13 e-Cigarette/Vaping Use Never Used 06/21/24 11:13 Thrive Assessment: Date of Thrive Assessment Date Thrive assessed 09/27/23 06/21/24 11:13 Const General: cooperative, healthy appearing, comfortable and no acute distress Orientation/consciousness: patient oriented x3 HENMT Head: Yes normocephalic Ears: hearing grossly normal bilaterally General nose exam: Normal external nose present Eyes General: appearance normal, both eyes and all related structures Conjunctivae: conjunctivae normal Neck Neck: Yes full ROM and Yes no lymphadenopathy Resp Effort & Inspection: normal respiratory effort Auscultation: clear to auscultation bilaterally, no crackles, no rales, no rhonchi and no wheezes Cardio Rate: regular rate Rhythm: regular rhythm Skin General skin exam: no rashes or lesions noted Neuro General: patient oriented x3 Gait exam (Neuro): Normal gait present Extrem General: Yes normal to inspection, Yes full ROM and No edema Psych Affect: normal affect Attitude: cooperative Insight: Good insight present (Psych) Judgement: Good judgement present (Psych) Coding Level of Care Code Est Pt Level 3 (25030) Diagnoses Primary hypertension I10 Hypertension type: primary hypertension Anxiety F41.9 Precordial pain R07.2 Chest pain type: precordial pain Assessment & Plan Assessment & Plan (1) HTN (hypertension): Code(s): I10 - Essential (primary) hypertension Category: Medical Qualifiers: Hypertension type: primary hypertension Qualified Code(s): I10 - Essential (primary) hypertension Plan: Blood pressure slightly elevated advised to continue taking blood pressures at home. (2) Anxiety: Code(s): F41.9 - Anxiety disorder, unspecified Category: Medical Plan: Continue on current medication regimen. Continue to follow with psychiatrist for management of medication regimen and tapering of benzodiazepine. (3) Chest pain: Code(s): R07.9 - Chest pain, unspecified Category: Medical Qualifiers: Chest pain type: precordial pain Qualified Code(s): R07.2 - Precordial pain Plan: Denies any further chest pain at this time. Reviewed red flag symptoms of chest pain and when to present for the ER. Plan This note was constructed using voice recognition software. 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 Total time spent caring for the patient today was 30 minutes. This includes time spent before the visit reviewing the chart, time spent during the visit, and time spent after the visit and documentation.
== END 2024-06-21 11:50 | disposition home or self-care (01) ==
PROVIDERS: PCP Internal Medicine
DX: I10 Essential (primary) hypertension (principal); F41.9 Anxiety disorder, unspecified; R07.2 Precordial pain

== ENCOUNTER → 2024-06-21 11:05 | Outpatient (BNVA) | payer MEDICARE, OTHER, SELFPAY | PROVIDERS: PCP Internal Medicine | DX: I10 Essential (primary) hypertension (principal); F41.9 Anxiety disorder, unspecified; R07.2 Precordial pain | CPT/HCPCS: 99212 ==

== ENCOUNTER 2024-07-16 11:24 | Outpatient (REF) | payer MEDICARE, OTHER, SELFPAY ==
[2024-07-16 14:02] LABS: Influenza A PCR NEGATIVE (Negative); Influenza B PCR NEGATIVE (Negative); Resp Syncy Virus RNA Qual PCR NEGATIVE (Negative); SARS COV2 PCR INHOUSE NEGATIVE (Negative)
== END 2024-07-16 11:25 | disposition home or self-care (01) ==
LOC: HO.LAB 11:24
PROVIDERS: PCP Internal Medicine
DX: R05.9 Cough, unspecified (principal); I10 Essential (primary) hypertension; F41.9 Anxiety disorder, unspecified
CPT/HCPCS: 0241U; 96127; 99212

== ENCOUNTER 2024-07-16 11:24 | Outpatient (AMB) | payer MEDICARE, OTHER, SELFPAY ==
[2024-07-16 11:28] VITALS: BP 130/62; PULSE 111; O2SAT 99; BMI 27.4
--- NOTE | 2024-07-16 11:28 | MHC.PC.OV ---
Vital Signs 07/16/24 11:28 Height 5 ft 6 in Weight 170 lb BMI 27.4 BP 130/62 Blood Pressure Location Lt brachial Position Sitting Pulse 111 H Pulse Source Pulse Oximeter Pulse Oximetry (%) 99 Oxygen Delivery Method Room Air Intake Visit Reasons: f/u psych Allergies buspirone Allergy (Intermediate, Verified 07/16/24 11:30) Rash Sulfa (Sulfonamide Antibiotics) Allergy (Intermediate, Verified 07/16/24 11:30) RASH cefuroxime Allergy (Unknown, Verified 07/16/24 11:30) Unknown garlic [GARLIC] Allergy (Unknown, Verified 07/16/24 11:30) PER H&P metronidazole [From FLAGYL] Allergy (Unknown, Verified 07/16/24 11:30) OCULAR MIGRAINES penicillamine Allergy (Unknown, Verified 07/16/24 11:30) Unknown ciprofloxacin Adverse Reaction (Intermediate, Verified 07/16/24 11:30) neuropathic pain lisinopril Adverse Reaction (Intermediate, Verified 07/16/24 11:30) Cough nitrofurantoin Adverse Reaction (Mild, Verified 07/16/24 11:30) GI side effects cefuroxime Allergy (Intermediate, Uncoded 07/16/24 11:30) wheezy cough/itch flagyl Allergy (Unknown, Uncoded 07/16/24 11:30) Unknown From KEFLEX Allergy (Unknown, Uncoded 07/16/24 11:30) RASH Metoprolol Tartrate Allergy (Unknown, Uncoded 07/16/24 11:30) Unknown Sulfacet-R Allergy (Unknown, Uncoded 07/16/24 11:30) Unknown Medication List - Last Reconciled 07/16/24 by Angelina Razo PA-C acetaminophen (Tylenol) 325 mg PO Q4H PRN alprazolam 0.25 mg PO BID aspirin 81 mg PO QAM cholecalciferol (vitamin D3) (Vitamin D3) 50 mcg PO DAILY clopidogrel 75 mg PO QAM estradiol 0.01%(0.1mg/gram) pea sized amount to urethra daily times 1 month then 3 times per week thereafter 30 days folic acid 0.4 mg PO DAILY hydrocortisone 2.5% 1 appl topical BID PRN losartan 25 mg PO DAILY 90 days mirabegron ER (Myrbetriq) 25 mg PO DAILY 30 days mirtazapine 15 mg PO BEDTIME pantoprazole (Protonix) 40 mg PO DAILY pantoprazole 40 mg PO QAM sucralfate 1 g PO TID Tobacco use date assessed: 01/16/24 Fall risk assessment: No Falls in past year Last assessed Fall Risk: 07/16/24 Dental Screening Dental Screen Date: 10/18/23 HPI f/u psych HPI Details 83-year-old female with past medical history significant for hypertension, aortic valve replacement, severe generalized anxiety disorder, anemia last seen June 2024 coming in for follow up on anxiety. Patient states she has a cough that started about 2 days ago. Denies fevers, congestion, sore throat, otalgia. She states her anxiety has been up and down and she has been in communication with her medication provider to adjust her psychiatric medications. [facility] Medical History (Updated 06/21/24 @ 13:09 by Angelina Razo PA-C) Chest pain URI (upper respiratory infection) HTN (hypertension) Cough Heart palpitations Constipation LLQ abdominal pain Anxiety Breast cancer screening Breast pain, left Elevated vitamin B12 level Neck muscle spasm Strain of neck muscle Low back pain Pubic ramus fracture Sore throat Skin tear of upper arm without complication Head injury, acute, without loss of consciousness Fall Dizziness Medication noncompliance due to cognitive impairment RLQ abdominal pain Sinusitis Flu syndrome Precordial chest pain Atypical chest pain Cold intolerance Former smoker Pulmonary nodule Abnormal lung sounds Fever Bilateral calf pain Nausea Left lower quadrant abdominal pain Dysuria Fatigue Lower extremity weakness Aortic stenosis Obstipation Dark stools Lower abdominal pain Gastroenteritis Neck pain on right side Back pain Rhinitis Elevated BP without diagnosis of hypertension Non-rheumatic aortic stenosis Diverticulitis GERD (gastroesophageal reflux disease) Cat scratch Cat bite Epigastric discomfort Diarrhea Nausea Viral syndrome GERD (gastroesophageal reflux disease) Neuropathy Arthritis GERD (gastroesophageal reflux disease) HTN (hypertension) Irritable bowel Heart murmur Surgical History S/P TAVR (transcatheter aortic valve replacement) Hx of esophagogastroduodenoscopy Hx of colonoscopy History of tonsillectomy History of appendectomy Family History Father No problems noted. Mother No problems noted. Social History Household Members: Children Housing: House Are you a primary director of critical care to a significant other at home: No Do you presently have visiting nurse or other home services: No Alcohol intake: former Patient Tobacco Use Status: Former Tobacco user Tobacco use type: Cigarette e-Cigarette/Vaping Use: Never Used Second Hand Smoke Exposure: No Advance Directives Date on File: 09/21/23 service: No Current occupational status: retired Cognitive needs: No Hearing needs: No Vision needs: Yes (glasses) Questionnaire PHQ-9 Over the last 2 weeks, how often have you been bothered by any of the following problems? 1. Little interest or pleasure in doing things: not at all 2. Feeling down, depressed, or hopeless: several days 3. Trouble falling or staying asleep, or sleeping too much: not at all 4. Feeling tired or having little energy: not at all 5. Poor appetite or overeating: not at all 6. Feeling bad about yourself - or that you are a failure or have let yourself or your family down: not at all 7. Trouble concentrating on things, such as reading the newspaper or watching television: not at all 8. Moving or speaking so slowly that other people could have noticed. Or the opposite - being so fidgety or restless that you have been moving around a lot more than usual: not at all 9. Thoughts that you would be better off or of hurting yourself in some way: not at all Total score: 1 Depression Screening Interpretation: Negative Depression Screening Done: Yes 01206 - PHQ-9 Billing: Yes Source: Developed by Drs. Anatoliy Gavin, Peyton Hunt, Austyn Weber and colleagues, with an educational kentrell from [employer]. Thrive Questionnaire Date Thrive assessed: 09/27/23 PAIGE-7 AMB Questionnaire PAIGE-7 Date PAIGE - 7 assessed: 09/27/23 Feeling nervous, anxious, or on edge: 0 = Not at all Not being able to stop or control worryin = Not at all Worrying too much about different things: 0 = Not at all Trouble relaxin = Not at all Being so restless that it is hard to sit still: 0 = Not at all Becoming easily annoyed or irritable: 0 = Not at all Feeling afraid as if something awful might happen: 0 = Not at all Total PAIGE-7 score (0-4 normal; 5-9 mild; 10-14 moderate; 15-21 severe): 0 Source: Developed by Drs. Anatoliy Gavin, Peyton Hunt, Austyn Weber and colleagues, with an educational kentrell from [employer]. Review of Systems Const Denies body aches, Denies chills, Denies fever(s), Denies headache(s) and Denies poor appetite Eyes Reports no additional complaints ENT Denies dizziness and Denies headache(s) Card Denies chest pain, Denies edema, Denies irregular heart rhythm, Denies lightheadedness and Denies dyspnea Resp Reports cough, Denies hemoptysis, Denies excessive phlegm production and Denies dyspnea GI Denies abdominal pain, Denies nausea and Denies vomiting Reports no additional complaints Musc Reports no additional complaints and Denies abnormal gait Skin/Breast Reports system reviewed and no additional complaints, except as documented Neuro Denies abnormal gait, Denies dizziness and Denies headache(s) Psych Reports no additional complaints Physical exam (Primary Care) Vital Signs: Last Vital Signs Pulse 111 H 07/16/24 11:28 BP 130/62 07/16/24 11:28 Pulse Ox 99 07/16/24 11:28 Oxygen Delivery Method Room Air 07/16/24 11:28 BMI result Body Mass Index 27.4 Tobacco/Smoking Status: Tobacco use Status Tobacco use date assessed 01/16/24 06/21/24 11:13 Patient Tobacco Use Status Former Tobacco user 06/21/24 11:13 Tobacco use type Cigarette 06/21/24 11:13 e-Cigarette/Vaping Use Never Used 06/21/24 11:13 Depression Screening Interpretation: Negative Thrive Assessment: Date of Thrive Assessment Date Thrive assessed 09/27/23 06/21/24 11:13 Const General: cooperative, healthy appearing, comfortable and no acute distress Orientation/consciousness: patient oriented x3 HENMT Head: Yes normocephalic Ears: hearing grossly normal bilaterally General nose exam: Normal external nose present Eyes General: appearance normal, both eyes and all related structures Conjunctivae: conjunctivae normal Neck Neck: Yes full ROM and Yes no lymphadenopathy Resp Effort & Inspection: normal respiratory effort Auscultation: clear to auscultation bilaterally, no crackles, no rales, no rhonchi and no wheezes Cardio Rate: regular rate Rhythm: regular rhythm Skin General skin exam: no rashes or lesions noted Neuro General: patient oriented x3 Gait exam (Neuro): Normal gait present Extrem General: Yes normal to inspection, Yes full ROM and No edema Psych Affect: normal affect Attitude: cooperative Insight: Good insight present (Psych) Judgement: Good judgement present (Psych) Coding Level of Care Code Est Pt Level 4 (36924) Diagnoses Cough R05.9 Primary hypertension I10 Hypertension type: primary hypertension Anxiety F41.9 Additional Codes PHQ-9 - 28235 - PHQ-9 Billing: Yes ([id number]) Assessment & Plan Assessment & Plan (1) Cough: Code(s): R05.9 - Cough, unspecified Category: Medical Plan: Patient has cough without fever or any other symptoms for the last 2 days. Ordered for viral testing. Discussed with patient if symptoms persist or worsen to reach out to the office for possible re-evaluation. Advised to use Mucinex for productive cough and Coricidin for dry cough. (2) HTN (hypertension): Code(s): I10 - Essential (primary) hypertension Category: Medical Qualifiers: Hypertension type: primary hypertension Qualified Code(s): I10 - Essential (primary) hypertension Plan: Continue on current blood pressure medication. Avoid salt intake and encourage healthy diet and regular exercise. (3) Anxiety: Code(s): F41.9 - Anxiety disorder, unspecified Category: Medical Plan: At our last appointment patient was referred to counselor and we will reach out to the office to schedule an appointment. Discussed the possibility of family counseling for patient and her son and they will look into this independently. I will reach out to patient's medication provider to discuss plan for tapering alprazolam. She feels well in her current medication regimen at this time. Plan This note was constructed using voice recognition software. While every effort has been made to ensure accuracy and water vessel captain, still areas may have been included sometimes these areas may affect the content or meeting of the given symptoms. Total time spent caring for the patient today was 30 minutes. This includes time spent before the visit reviewing the chart, time spent during the visit, and time spent after the visit and documentation. Orders: Orders SARS-CoV2/FLU/RSV Today R05.9 - Cough, unspecified
== END 2024-07-16 12:34 | disposition home or self-care (01) ==
PROVIDERS: PCP Internal Medicine
DX: R05.9 Cough, unspecified (principal); I10 Essential (primary) hypertension; F41.9 Anxiety disorder, unspecified

== ENCOUNTER 2024-07-22 14:37 | Outpatient (REF) | payer MEDICARE, OTHER, SELFPAY ==
--- NOTE | ~2024-07-22 | XR_ITS ---
EXAMINATION: XR CHEST CLINICAL INFORMATION: J06.9 - Acute upper respiratory infection, unspecified COMPARISON: 06/19/2024, 05/23/2024, and dating back to 09/23/2023. Over TECHNIQUE: 2 views of the chest were obtained. The exam was submitted for interpretation 08/08/2024. FINDINGS: Cardiac size is normal. TAVR in place. The aorta is calcified and mildly uncoiled. There appears to be ascending aorta dilatation and aortic root dilatation. Prominent pulmonary arteries in the hilar regions suggesting pulmonary arterial hypertension. Lungs are hyperaerated and hyperlucent, with increased fine reticular markings consistent with COPD. There is a left apical opacity which appears more prominent than on previous exams. Cannot exclude underlying pulmonary nodule. Lungs otherwise demonstrate mild right suprahilar scarring. No effusions or pneumothorax. There are degenerative changes with mildly exaggerated kyphosis throughout the spine. There is osteopenia. No soft tissue abnormalities. XR/XR chest 2V IMPRESSION: 1. COPD. 2. More prominent left apical nodular opacity for which lung nodule cannot be excluded. Recommend CT. 3. Enlarged main pulmonary artery suggesting pulmonary arterial hypertension. 4. Otherwise, no active pulmonary disease. 5. Aortic root dilatation, suggestive of a descending aortic aneurysm. TAVR in place. Request was made via the [facility] to have this report stat faxed to the providing physician 08/08/2024. Electronically signed by: Higinio Pozo MD 08/08/2024 10:14 AM NITIN
== END 2024-07-22 14:38 | disposition home or self-care (01) ==
LOC: HO.HMGCX 14:37
PROVIDERS: PCP Internal Medicine
DX: J06.9 Acute upper respiratory infection, unspecified (principal); J44.9 Chronic obstructive pulmonary disease, unspecified
CPT/HCPCS: 71046

== ENCOUNTER → 2024-07-22 14:46 | Outpatient (BNV) | payer MEDICARE, OTHER, SELFPAY | PROVIDERS: PCP Internal Medicine; Visit Provider Radiology Diagnostic Radiology | DX: J06.9 Acute upper respiratory infection, unspecified (principal) | CPT/HCPCS: 71046 ==

== ENCOUNTER 2024-07-25 10:38 | Outpatient (AMB) | payer MEDICARE, OTHER, SELFPAY ==
--- NOTE | 2024-07-25 10:42 | MHC.OFFVIS ---
Intake Visit Reasons: B/L Knee Injections Intake Note: Bella is a 82 year old female who presents today for a follow up for her B/L knee OA, last injection was on her right knee 03/30/23. Also she had both of her knees injected on 11/03/22. Patient reports her last injections gave her relief and would like to repeat only on the left knee. Allergies buspirone Allergy (Intermediate, Verified 07/16/24 11:30) Rash Sulfa (Sulfonamide Antibiotics) Allergy (Intermediate, Verified 07/16/24 11:30) RASH cefuroxime Allergy (Unknown, Verified 07/16/24 11:30) Unknown garlic [GARLIC] Allergy (Unknown, Verified 07/16/24 11:30) PER H&P metronidazole [From FLAGYL] Allergy (Unknown, Verified 07/16/24 11:30) OCULAR MIGRAINES penicillamine Allergy (Unknown, Verified 07/16/24 11:30) Unknown ciprofloxacin Adverse Reaction (Intermediate, Verified 07/16/24 11:30) neuropathic pain lisinopril Adverse Reaction (Intermediate, Verified 07/16/24 11:30) Cough nitrofurantoin Adverse Reaction (Mild, Verified 07/16/24 11:30) GI side effects cefuroxime Allergy (Intermediate, Uncoded 07/16/24 11:30) wheezy cough/itch flagyl Allergy (Unknown, Uncoded 07/16/24 11:30) Unknown From KEFLEX Allergy (Unknown, Uncoded 07/16/24 11:30) RASH Metoprolol Tartrate Allergy (Unknown, Uncoded 07/16/24 11:30) Unknown Sulfacet-R Allergy (Unknown, Uncoded 07/16/24 11:30) Unknown HPI HPI B/L Knee Injections: Details: 83-year-old female who presents in the office today for a follow-up of bilateral knee pain. I last saw the patient in the office on 03/30/23 when she was given a cortisone injection in the right knee. A referral was placed for a cortisone injection in the right hip under ultrasound guidance at the hospital, and she was also referred to Pain Management for further evaluation and treatment of her right hip. While in the office today, the patient had cortisone injection in the bilateral knees on 11/03/22. She had her last cortisone injection in the right knee on 03/30/23. She reports her last injections gave her relief. She mentions having a difficult time with balance and would like to have one knee injection at a time. She is worried if she has increased knee pain and it may be difficult for her to ambulate. She complains of left knee pain more prevalent in the posterior medial aspect of the knee. Denies any left calf cramping or calf pain. She would like to have a repeat injection only in the left knee today. The patient is accompanied today by her son. [facility] Medical History (Updated 06/21/24 @ 13:09 by Angelina Razo PA-C) Chest pain URI (upper respiratory infection) HTN (hypertension) Cough Heart palpitations Constipation LLQ abdominal pain Anxiety Breast cancer screening Breast pain, left Elevated vitamin B12 level Neck muscle spasm Strain of neck muscle Low back pain Pubic ramus fracture Sore throat Skin tear of upper arm without complication Head injury, acute, without loss of consciousness Fall Dizziness Medication noncompliance due to cognitive impairment RLQ abdominal pain Sinusitis Flu syndrome Precordial chest pain Atypical chest pain Cold intolerance Former smoker Pulmonary nodule Abnormal lung sounds Fever Bilateral calf pain Nausea Left lower quadrant abdominal pain Dysuria Fatigue Lower extremity weakness Aortic stenosis Obstipation Dark stools Lower abdominal pain Gastroenteritis Neck pain on right side Back pain Rhinitis Elevated BP without diagnosis of hypertension Non-rheumatic aortic stenosis Diverticulitis GERD (gastroesophageal reflux disease) Cat scratch Cat bite Epigastric discomfort Diarrhea Nausea Viral syndrome GERD (gastroesophageal reflux disease) Neuropathy Arthritis GERD (gastroesophageal reflux disease) HTN (hypertension) Irritable bowel Heart murmur Surgical History S/P TAVR (transcatheter aortic valve replacement) Hx of esophagogastroduodenoscopy Hx of colonoscopy History of tonsillectomy History of appendectomy Family History Father No problems noted. Mother No problems noted. Social History Household Members: Children Housing: House Are you a primary acute care physical therapist to a significant other at home: No Do you presently have visiting nurse or other home services: No Alcohol intake: former Patient Tobacco Use Status: Former Tobacco user Tobacco use type: Cigarette e-Cigarette/Vaping Use: Never Used Second Hand Smoke Exposure: No Advance Directives Date on File: 09/21/23 service: No Current occupational status: retired Cognitive needs: No Hearing needs: No Vision needs: Yes (glasses) Review of Systems Const All systems reviewed & are unremarkable except as noted in HPI and below Physical Exam Const General: cooperative, healthy appearing and no acute distress Resp Effort & Inspection: normal respiratory effort and able to speak in complete sentences Cardio Rate: regular rate Peripheral pulses: Peripheral pulses 2+ throughout GI Palpation (GI): Soft to palpation Skin Lesions: no lesions Rashes: no rashes Extrem Other: Bilateral knees: Normal to inspection. No ecchymosis, erythema, or joint effusion. No tenderness to palpation along the medial or lateral joint lines. Full knee extension and flexion. Crepitus felt with ROM. NVI. Office Procedures AMB Joint Injection/Aspiration Joint Injection/Aspiration Primary Site: right knee Secondary Site: left knee Prep: site was prepped using aseptic technique, ethochloride spray was applied and injection warnings given Injected: 80 mg of, DepoMedrol, with 8 mL of (2% plain lido ) and in the joint Approach Used: anterolateral Procedure: The patient tolerated the procedure well, but had some pain with the injection and there was some relief with the local anesthesia Coding 91597 - Large joint Procedure code (CPT) selection complete Assessment & Plan Assessment & Plan (1) Osteoarthritis of left knee: Code(s): M17.12 - Unilateral primary osteoarthritis, left knee Category: Medical (2) Osteoarthritis of right knee: Code(s): M17.11 - Unilateral primary osteoarthritis, right knee Category: Medical Plan Ms. Henley is an 83-year-old female who presents in the office today for a follow-up of bilateral knee pain. I last saw the patient in the office on 03/30/23 when she was given a cortisone injection in the right knee. A referral was placed for a cortisone injection in the right hip under ultrasound guidance at the hospital and was also referred to Pain Management for further evaluation and treatment of her right hip. While in the office today, the patient had cortisone injection in the bilateral knees on 11/03/22. She had her last cortisone injection in the right knee on 03/30/23. She reports her last injections gave her relief. She mentions having a difficult time with balance and would like to have one knee injection at a time. She is worried if she has an increased knee pain and may be difficult for her to ambulate. She complains of left knee pain more prevalent in the posterior medial aspect of the knee. Denies any left calf cramping or calf pain. She would like to have a repeat injection only in the left knee today. The patient is accompanied today by her son. The patient was offered a cortisone injection in the left knee with 80 mg of Depo-Medrol. The patient was explained the risks, benefits, and alternatives to receiving this injection. After receiving consent for the injection, the patient had the procedure done while in the office today. The patient tolerated the procedure well with no complication. Follow-up will be PRN, or sooner if needed. Patient Instructions: Scribed by Kymberly Oh, medical record coder, for Nora Sheila LOGAN on 07/25/24 at 10:50 am EST. Coding Level of Care Code Est Pt Level 3 (68127) Diagnoses Osteoarthritis of left knee M17.12 Osteoarthritis of right knee M17.11 CPT Codes Coding - 46264 Large joint: 19198 - Large joint ([id number])
== END 2024-07-25 11:17 | disposition home or self-care (01) ==
PROVIDERS: PCP Internal Medicine; Visit Provider Physician Assistant
DX: M17.0 Bilateral primary osteoarthritis of knee (principal)
CPT/HCPCS: 20610; 99213

== ENCOUNTER → 2024-07-25 10:38 | Outpatient (BNVA) | payer MEDICARE, OTHER, SELFPAY | PROVIDERS: PCP Internal Medicine; Visit Provider Physician Assistant | DX: M17.0 Bilateral primary osteoarthritis of knee (principal) | CPT/HCPCS: 20610; 99212; J1010; J2003 ==

== ENCOUNTER → 2024-07-29 11:01 | Outpatient (REF) | payer MEDICARE, OTHER, SELFPAY ==
--- NOTE | 2024-07-29 11:03 | CA_ITS ---
Transthoracic Echocardiogram Patient (Last, First, Middle): Bella Henley G Gender: Female Date of : 1940 Age: 83 Procedure Date: 07/29/2024 Procedure Type: Transthoracic Echocardiogram Location: OP Height: 167. cm Weight: 70.76 kg BSA: 1.79 m2 Heart Rate: 82 bpm BP: 145 / 85 mmHg Sprinkling System Installer: TITO Referring MD: Brenda Nevarez MD Symptoms: S/P TAVR Study Quality: Adequate on Apicals ECG Rhythm: Sinus Conclusions: - Normal left ventricular cavity size. There is mildly increased left ventricular wall thickness. The left ventricular systolic function is hyperdynamic. The visually estimated ejection fraction is >70%. - Normal right ventricular cavity size and systolic function. - A bioprosthetic aortic valve is present. The prosthetic aortic valve appears to be functioning normally. - There is mild dilatation of the sinuses of Valsalva measuring 3.80 cm. Findings Left Ventricle Normal left ventricular cavity size. There is mildly increased left ventricular wall thickness. The left ventricular systolic function is hyperdynamic. The visually estimated ejection fraction is >70%. There is no evidence of regional wall motion abnormalities. Diastolic function is indeterminate on the basis of available data. There is moderate septal asymmetric hypertrophy. Right Ventricle Normal right ventricular cavity size and systolic function. Atria The left atrium is likely dilated. The right atrium is normal in size. Aortic Valve A bioprosthetic aortic valve is present. The prosthetic aortic valve appears to be functioning normally. There is no aortic valve stenosis. The peak aortic velocity is 1.94 m/s. The mean gradient is 9 mmHg. There is no aortic valve regurgitation. Mitral Valve There is severe mitral annular calcification. There is mild mitral valve regurgitation. There is no mitral valve stenosis. Pulmonic Valve The pulmonic valve is normal. There is no pulmonic valve regurgitation. Tricuspid Valve Normal tricuspid valve structure. There is trace tricuspid valve regurgitation. Normal right atrial pressure. There is no evidence of pulmonary hypertension. Great Vessels There is mild dilatation of the sinuses of Valsalva measuring 3.80 cm. The visualized portions of the pulmonary artery and branches are normal. Venous The inferior vena cava is normal in size and collapses greater than 50% with inspiration. Pericardium/Pleural There is no evidence of pericardial effusion. Prior Study Comparison No significant change compared to prior study dated: 04/02/2024. Measurements 2D Linear Measurements IVSd: 1.47 0.6-0.9/0.6-1.0 cm LVIDd: 2.69 3.9-5.3/4.2-5.9 cm LVIDd Index: 1.50 2.4-3.2/2.2-3.1 cm/m2 LVIDs: 1.44 2.0-3.6 cm LVPWd: 1.16 0.7-1.1 cm LA Diam: 3.20 2.7-3.8/3.0-4.0 cm LAIDs Index: 1.79 1.5-2.3 cm/m2 LV Mass: 136.35 67-162/88-224 g LV Mass Index: 76.17 43-95/49-115 g/m2 LVOT Diam: 2.00 3.0+(-)1.3 cm 2D Systolic Function EF 4C: 59.50 >55% EF 2C: 58.80 >55% EF BiP: 59.20 >55% Mitral Valve MV VTI: 0.38 MV Pk Anthony: 1.72 MV Mn Anthony: 0.97 MV Pk Grad: 12.00 MV Mn Grad: 5.00 MV Pk E: 0.72 MV PK A: 1.49 MV Decel Time: 252.00 E/A: 0.50 E'Lateral: 8.92 E'Medial: 5.98 E/E' Med: 12.00 E/E' Lat: 8.00 PHT: 74.00 MVA PHT: 2.97 MVA Continuity: 3.44 Decel Inyo: 2.84 Aortic Valve AoV Pk Anthony: 1.94 AoV Mn Anthony: 1.47 AoV VTI: 0.43 AoV Pk Grad: 15.00 Aov Mn Grad: 9.00 LULA Cont.VTI: 3.08 LVOT LVOT Pk Anthony: 2.01 LVOT Mn Anthony: 1.42 LVOT VTI: 0.42 LVOT Pk Grad: 16.00 LVOT Mn Grad: 9.00 LVOT Diam: 2.00 LVOT Area: 3.14 Diastolic Function MV Pk E: 0.72 MV Pk A: 1.49 E/A: 0.50 E'Medial: 5.98 E/E' Med: 12.00 E' Laterial: 8.92 E/E' Lat: 8.00 Right Ventricle TAPSE (mm): 16.10 TVS' Anthony: 13.40 Tricuspid Valve TR Pk Anthony: 2.48 TR Pk Grad: 25.00 RA Press: 3.00 RVSP: 28.00 Great Vessels Aorta Sinus of Valsalva: 3.80 2.0-3.5 cm Ao Asc: 3.30 2.1-3.4 cm Pulmonary Valve PV Pk Anthony: 0.87 Peak PV Grad: 3.00 Updated in Other Vendor System with Status of Final Guillaume Callahan MD electronically signed on 07/31/2024 2:25:09 PM with status of Final
== END ==
LOC: HO.CARD 11:01
PROVIDERS: PCP Internal Medicine; Visit Provider Internal Medicine Cardiovascular Disease
DX: Z95.4 Presence of other heart-valve replacement (principal)
CPT/HCPCS: 93306

== ENCOUNTER → 2024-07-29 11:03 | Outpatient (BNV) | payer MEDICARE, OTHER, SELFPAY | PROVIDERS: PCP Internal Medicine; Visit Provider Internal Medicine Cardiovascular Disease | DX: I42.2 Other hypertrophic cardiomyopathy (principal); Z95.3 Presence of xenogenic heart valve; I34.81 Nonrheumatic mitral (valve) annulus calcification | CPT/HCPCS: 93306 ==

== ENCOUNTER 2024-07-30 11:19 | Outpatient (AMB) | payer MEDICARE, OTHER, SELFPAY ==
--- NOTE | 2024-07-30 11:20 | MHC.OFFVIS ---
Intake Visit Reasons: Right Knee Injection Intake Note: Bella is a 82 year old female who presents today for a right knee injection, last injection was on her left knee 07/25/24. Patient reports her left knee is doing well from the injection. She is here for her right knee injection. Allergies buspirone Allergy (Intermediate, Verified 07/16/24 11:30) Rash Sulfa (Sulfonamide Antibiotics) Allergy (Intermediate, Verified 07/16/24 11:30) RASH cefuroxime Allergy (Unknown, Verified 07/16/24 11:30) Unknown garlic [GARLIC] Allergy (Unknown, Verified 07/16/24 11:30) PER H&P metronidazole [From FLAGYL] Allergy (Unknown, Verified 07/16/24 11:30) OCULAR MIGRAINES penicillamine Allergy (Unknown, Verified 07/16/24 11:30) Unknown ciprofloxacin Adverse Reaction (Intermediate, Verified 07/16/24 11:30) neuropathic pain lisinopril Adverse Reaction (Intermediate, Verified 07/16/24 11:30) Cough nitrofurantoin Adverse Reaction (Mild, Verified 07/16/24 11:30) GI side effects cefuroxime Allergy (Intermediate, Uncoded 07/16/24 11:30) wheezy cough/itch flagyl Allergy (Unknown, Uncoded 07/16/24 11:30) Unknown From KEFLEX Allergy (Unknown, Uncoded 07/16/24 11:30) RASH Metoprolol Tartrate Allergy (Unknown, Uncoded 07/16/24 11:30) Unknown Sulfacet-R Allergy (Unknown, Uncoded 07/16/24 11:30) Unknown HPI HPI Right Knee Injection: Details: 83-year-old female who presents in the office today for a follow-up of right knee pain. I last saw the patient accompanied by her son in the office on 07/25/24 for bilateral knee pain. She mentioned having a difficult time with balance and wanted to have a cortisone injection only in the left knee. She was given a cortisone injection in the left knee. While in the office today, the patient reports improved pain from the last cortisone injection. She would like to have an injection in her right knee. [facility] Medical History (Updated 06/21/24 @ 13:09 by Angelina Razo PA-C) Chest pain URI (upper respiratory infection) HTN (hypertension) Cough Heart palpitations Constipation LLQ abdominal pain Anxiety Breast cancer screening Breast pain, left Elevated vitamin B12 level Neck muscle spasm Strain of neck muscle Low back pain Pubic ramus fracture Sore throat Skin tear of upper arm without complication Head injury, acute, without loss of consciousness Fall Dizziness Medication noncompliance due to cognitive impairment RLQ abdominal pain Sinusitis Flu syndrome Precordial chest pain Atypical chest pain Cold intolerance Former smoker Pulmonary nodule Abnormal lung sounds Fever Bilateral calf pain Nausea Left lower quadrant abdominal pain Dysuria Fatigue Lower extremity weakness Aortic stenosis Obstipation Dark stools Lower abdominal pain Gastroenteritis Neck pain on right side Back pain Rhinitis Elevated BP without diagnosis of hypertension Non-rheumatic aortic stenosis Diverticulitis GERD (gastroesophageal reflux disease) Cat scratch Cat bite Epigastric discomfort Diarrhea Nausea Viral syndrome GERD (gastroesophageal reflux disease) Neuropathy Arthritis GERD (gastroesophageal reflux disease) HTN (hypertension) Irritable bowel Heart murmur Surgical History S/P TAVR (transcatheter aortic valve replacement) Hx of esophagogastroduodenoscopy Hx of colonoscopy History of tonsillectomy History of appendectomy Family History Father No problems noted. Mother No problems noted. Social History Household Members: Children Housing: House Are you a primary manager medicare marketing to a significant other at home: No Do you presently have visiting nurse or other home services: No Alcohol intake: former Patient Tobacco Use Status: Former Tobacco user Tobacco use type: Cigarette e-Cigarette/Vaping Use: Never Used Second Hand Smoke Exposure: No Advance Directives Date on File: 09/21/23 service: No Current occupational status: retired Cognitive needs: No Hearing needs: No Vision needs: Yes (glasses) Review of Systems Const All systems reviewed & are unremarkable except as noted in HPI and below Physical Exam Const General: cooperative, healthy appearing and no acute distress Resp Effort & Inspection: normal respiratory effort and able to speak in complete sentences Cardio Rate: regular rate Peripheral pulses: Peripheral pulses 2+ throughout GI Palpation (GI): Soft to palpation Skin Lesions: no lesions Rashes: no rashes Extrem Other: Right knee: Normal to inspection. No ecchymosis, erythema, or joint effusion. No tenderness to palpation along the medial or lateral joint lines. Full knee extension and flexion. Crepitus felt with ROM. NVI. Office Procedures AMB Joint Injection/Aspiration Joint Injection/Aspiration Primary Site: right knee Prep: site was prepped using aseptic technique, ethochloride spray was applied and injection warnings given Injected: 80 mg of, DepoMedrol, with 8 mL of (2% plain lido ) and in the joint Approach Used: anterolateral Procedure: The patient tolerated the procedure well, but had some pain with the injection and there was some relief with the local anesthesia Coding 39032 - Large joint Procedure code (CPT) selection complete Assessment & Plan Assessment & Plan (1) Osteoarthritis of right knee: Code(s): M17.11 - Unilateral primary osteoarthritis, right knee Category: Medical (2) Osteoarthritis of left knee: Code(s): M17.12 - Unilateral primary osteoarthritis, left knee Category: Medical Plan Ms. Henley is a 83-year-old female who presents in the office today for a follow-up of right knee pain. I last saw the patient accompanied by her son in the office on 07/25/24 for bilateral knee pain. She mentioned having a difficult time with balance and wanted to have a cortisone injection only in the left knee. She was given a cortisone injection in the left knee. While in the office today, the patient reports improved pain from the last cortisone injection. She would like to have an injection in her right knee. The patient was offered a cortisone injection in the right knee with 80 mg of Depo-Medrol. The patient was explained the risks, benefits, and alternatives to receiving this injection. After receiving consent for the injection, the patient had the procedure done while in the office today. The patient tolerated the procedure well with no complication. Follow-up will be PRN, or sooner if needed. Patient Instructions: Scribed by Kymberly Oh medical physics professor, for Nora Sosa PA-C on 07/30/24 at 11:45 am EST. Coding Level of Care Code Est Pt Level 3 (28208) Diagnoses Osteoarthritis of right knee M17.11 Osteoarthritis of left knee M17.12 CPT Codes Coding - 83071 Large joint: 43614 - Large joint ([id number])
== END 2024-07-30 11:42 | disposition home or self-care (01) ==
PROVIDERS: PCP Internal Medicine; Visit Provider Physician Assistant
DX: M17.0 Bilateral primary osteoarthritis of knee (principal)
CPT/HCPCS: 20610; 99213

== ENCOUNTER → 2024-07-30 11:19 | Outpatient (BNVA) | payer MEDICARE, OTHER, SELFPAY | PROVIDERS: PCP Internal Medicine; Visit Provider Physician Assistant | DX: M17.0 Bilateral primary osteoarthritis of knee (principal) | CPT/HCPCS: 20610; 99212; J1010; J2003 ==

== ENCOUNTER 2024-08-12 12:47 | Outpatient (AMB) | payer MEDICARE, OTHER, SELFPAY ==
[2024-08-12 12:50] VITALS: BP 120/64; PULSE 74; BMI 27.5
--- NOTE | 2024-08-12 12:50 | A.OFFVIS_ITS ---
Vital Signs 08/12/24 12:50 Height 5 ft 6 in Weight 170 lb 3.15 oz BMI 27.5 BP 120/64 Blood Pressure Location Lt brachial Position Sitting Pulse 74 Pulse Source Pulse Oximeter Intake Visit Reasons: r/s 07/08/24 4 mos followup labs/echo Intake Note: r/s 4 mth f/up Account Services Coordinator Required: No Accompanied by: Self / Same As Patient Allergies buspirone Allergy (Intermediate, Verified 07/16/24 11:30) Rash Sulfa (Sulfonamide Antibiotics) Allergy (Intermediate, Verified 07/16/24 11:30) RASH cefuroxime Allergy (Unknown, Verified 07/16/24 11:30) Unknown garlic [GARLIC] Allergy (Unknown, Verified 07/16/24 11:30) PER H&P metronidazole [From FLAGYL] Allergy (Unknown, Verified 07/16/24 11:30) OCULAR MIGRAINES penicillamine Allergy (Unknown, Verified 07/16/24 11:30) Unknown ciprofloxacin Adverse Reaction (Intermediate, Verified 07/16/24 11:30) neuropathic pain lisinopril Adverse Reaction (Intermediate, Verified 07/16/24 11:30) Cough nitrofurantoin Adverse Reaction (Mild, Verified 07/16/24 11:30) GI side effects cefuroxime Allergy (Intermediate, Uncoded 07/16/24 11:30) wheezy cough/itch flagyl Allergy (Unknown, Uncoded 07/16/24 11:30) Unknown From KEFLEX Allergy (Unknown, Uncoded 07/16/24 11:30) RASH Metoprolol Tartrate Allergy (Unknown, Uncoded 07/16/24 11:30) Unknown Sulfacet-R Allergy (Unknown, Uncoded 07/16/24 11:30) Unknown Medication List - Last Reconciled 08/12/24 by Guillaume Callahan MD acetaminophen (Tylenol) 325 mg PO Q4H PRN alprazolam 0.25 mg PO BID aspirin 81 mg PO QAM cholecalciferol (vitamin D3) (Vitamin D3) 50 mcg PO DAILY clopidogrel 75 mg PO QAM estradiol 0.01%(0.1mg/gram) pea sized amount to urethra daily times 1 month then 3 times per week thereafter 30 days folic acid 0.4 mg PO DAILY losartan 25 mg PO DAILY 90 days mirabegron ER (Myrbetriq) 25 mg PO DAILY 30 days mirtazapine 15 mg PO BEDTIME pantoprazole (Protonix) 40 mg PO DAILY sucralfate 1 g PO TID HPI Comments Details: 83-year-old female who is here for follow-up. She is background of severe symptomatic aortic valve stenosis and was referred for transcatheter aortic valve replacement which she underwent recently at [facility]. Unfortunately her clinical course was complicated by CVA. 10/11/2023: She returns for follow-up today. She had echocardiography performed on September 25 2023 showing normal left ventricular function with ejection fraction 68%. Normal right ventricular size and function. Bioprosthetic aortic valve which was functioning normally. No paravalvular leak noted. She is complaining of left-sided lower abdominal pain and constipation. She said she went to the emergency department a few times over the last week or so. On October 07 she was diagnosed with diverticulitis and was prescribed amoxicillin clavulanate but it appears she did not fill the script till last night and took the 1st dose last evening and 2nd dose this morning. She has significant pain on the left side of abdomen and clearly has some peritoneal sinus to as she is getting pain with movement. She also has nausea and poor appetite. She is little more forgetful. 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 02/14/24: She is here for f/u. She was sent to ER on last visit for divertilculitis. She has recovered from that. She is complaining about nervous ness and anxiety. She has been on xanax for 40 years. She is saying her psychiatrist is cutting back on it. she has been more forgetful lately. She has lost weight approximately 10 pounds over the last 2 months. 08/12/2024: She is here for follow-up. She underwent repeat echocardiography in July 2024 which showed normally functioning bioprosthetic valve in aortic position with hyperdynamic LV function. She is complaining of some bruising of her skin. Labs reviewed. Blood pressure control is good. [facility] Medical History (Updated 08/08/24 @ 11:52 by Angelina Razo PA-C) Pulmonary nodule Chest pain URI (upper respiratory infection) HTN (hypertension) Cough Heart palpitations Constipation LLQ abdominal pain Anxiety Breast cancer screening Breast pain, left Elevated vitamin B12 level Neck muscle spasm Strain of neck muscle Low back pain Pubic ramus fracture Sore throat Skin tear of upper arm without complication Head injury, acute, without loss of consciousness Fall Dizziness Medication noncompliance due to cognitive impairment RLQ abdominal pain Sinusitis Flu syndrome Precordial chest pain Atypical chest pain Cold intolerance Former smoker Abnormal lung sounds Fever Bilateral calf pain Nausea Left lower quadrant abdominal pain Dysuria Fatigue Lower extremity weakness Aortic stenosis Obstipation Dark stools Lower abdominal pain Gastroenteritis Neck pain on right side Back pain Rhinitis Elevated BP without diagnosis of hypertension Non-rheumatic aortic stenosis Diverticulitis GERD (gastroesophageal reflux disease) Cat scratch Cat bite Epigastric discomfort Diarrhea Nausea Viral syndrome GERD (gastroesophageal reflux disease) Neuropathy Arthritis GERD (gastroesophageal reflux disease) HTN (hypertension) Irritable bowel Heart murmur Surgical History S/P TAVR (transcatheter aortic valve replacement) Hx of esophagogastroduodenoscopy Hx of colonoscopy History of tonsillectomy History of appendectomy Family History Father No problems noted. Mother No problems noted. Social History Household Members: Children Housing: House Are you a primary animal care supervisor to a significant other at home: No Do you presently have visiting nurse or other home services: No Alcohol intake: former Patient Tobacco Use Status: Former Tobacco user Tobacco use type: Cigarette e-Cigarette/Vaping Use: Never Used Second Hand Smoke Exposure: No Advance Directives Date on File: 09/21/23 service: No Current occupational status: retired Cognitive needs: No Hearing needs: No Vision needs: Yes (glasses) Review of Systems Const Denies chills, Denies fatigue, Denies fever(s), Denies frequent falls, Denies weakness, Denies weight gain and Denies weight loss ENT Denies dizziness Card Denies chest pain, Denies leg edema, Denies lightheadedness, Denies palpitations, Denies dyspnea and Denies dyspnea on exertion Resp Denies cough, Denies dyspnea and Denies dyspnea on exertion GI Denies hematochezia Musc Denies abnormal gait, Denies muscle weakness, Denies numbness, Denies radiating pain into limb and Denies tingling Neuro Denies abnormal gait, Denies dizziness, Denies frequent falls, Denies numbness, Denies tingling and Denies weakness Endo Denies fatigue and Denies palpitations Physical Exam Vital Signs: Last Vital Signs Pulse 74 08/12/24 12:50 BP 120/64 08/12/24 12:50 BMI result Body Mass Index 27.5 GENERAL APPEARANCE: In no acute distress. NECK: no carotid bruit, no jugular venous distention. SKIN: no suspicious lesions, warm and dry. HEART: Normal S1 plus S2, regular rate and rhythm. No murmur. LUNGS: clear to auscultation bilaterally. ABDOMEN: soft. EXTREMITIES: no edema. PERIPHERAL PULSES: equal. NEUROLOGIC: No gross deficits, AAO X 3 Assessment & Plan Assessment & Plan (1) S/P AVR: Code(s): Z95.2 - Presence of prosthetic heart valve Category: Medical (2) Essential hypertension: Code(s): I10 - Essential (primary) hypertension Category: Medical Plan 83-year-old female who is here follow-up. She has known history of severe aortic valve stenosis status post transcatheter aortic valve replacement in the past. She is done well since then. No heart failure symptoms. Blood pressure is well controlled. She is on aspirin and Plavix and has bruising she also has a catch which scratches her hand and she gets bleeding. I think she can continue Plavix monotherapy and stop the aspirin. She is also anemic and maybe this will help. I have advised her to use multivitamins. She will see us back in 6 months. Thank you for allowing me to participate in the care of your patient. Please feel free to contact me if you have any questions. Medications: Discontinued aspirin Discontinued Reason: Doctor's Order 81 mg PO QAM 90 tabs 0RF Coding Level of Care Code Est Pt Level 4 (43137) Diagnoses S/P AVR Z95.2 Essential hypertension I10
== END 2024-08-12 13:24 | disposition home or self-care (01) ==
PROVIDERS: PCP Internal Medicine; Visit Provider Internal Medicine Cardiovascular Disease
DX: Z95.2 Presence of prosthetic heart valve (principal); I10 Essential (primary) hypertension
CPT/HCPCS: 99214

== ENCOUNTER → 2024-08-12 12:47 | Outpatient (BNVA) | payer MEDICARE, OTHER, SELFPAY | PROVIDERS: PCP Internal Medicine; Visit Provider Internal Medicine Cardiovascular Disease | DX: I10 Essential (primary) hypertension (principal); Z95.2 Presence of prosthetic heart valve | CPT/HCPCS: 99212 ==

== ENCOUNTER 2024-08-19 09:45 | Outpatient (REF) | payer MEDICARE, OTHER, SELFPAY ==
--- NOTE | ~2024-08-19 | CT_ITS ---
CLINICAL HISTORY: R91.1 - Solitary pulmonary nodule DLP: 136mgycm CT chest without contrast Comparison: CT/SR - CT CHEST W IV CON - 06/14/22 14:30 EDT Findings: Aortic valve replacement noted. Moderate atherosclerotic disease of the coronary arteries. The thyroid gland appears stable. No pericardial effusion or significant mediastinal adenopathy. Stable 4-5 mm right middle lobe nodule, sagittal 73. Few scattered stable 2 mm nodules. No new or increasing nodule. Mild centrilobular emphysema of the lung apices. Scattered pleural parenchymal scarring most pronounced at the lung apices. Subpleural reticular markings at the lung bases, stable. The visualized upper abdomen demonstrates no acute process. Hepatic cyst noted. Nonobstructing left renal calculus. Impression: Stable pulmonary nodules. These can be considered benign given long-term follow-up. Chronic interstitial changes. This document has been electronically signed by: Nhan Kelly MD on 08/19/2024 12:34:11
== END 2024-08-19 09:46 | disposition home or self-care (01) ==
LOC: HO.CT 09:45
PROVIDERS: PCP Internal Medicine
DX: R91.1 Solitary pulmonary nodule (principal)
CPT/HCPCS: 71250

== ENCOUNTER → 2024-08-19 09:47 | Outpatient (BNV) | payer MEDICARE, OTHER, SELFPAY | PROVIDERS: PCP Internal Medicine; Visit Provider Radiology Vascular & Interventional Radiology | DX: R91.8 Other nonspecific abnormal finding of lung field (principal) | CPT/HCPCS: 71250 ==

== ENCOUNTER 2024-08-20 17:35 | Emergency (ER) | payer MEDICARE, OTHER, SELFPAY ==
--- NOTE | ~2024-08-20 | XR_ITS ---
EXAMINATION: XR HAND, LEFT CLINICAL INFORMATION: pain, bruising COMPARISON: Left hand 09/17/2020 TECHNIQUE: PA, lateral, and oblique views of the left hand. FINDINGS: There is loss of PIP, DIP joint spaces in all digits with deformities and subluxations at the DIP joint second through fifth digit. There is moderate periarticular spurring at the DIP joints and first PIP joint. No visible acute fracture or dislocation seen involving the left side. There are old distal radial healed fracture and a nonhealed ulnar/prosthesis fracture which are stable. XR/XR hand LT min 3V IMPRESSION: 1. 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 No visible acute fracture or dislocation seen. 2. Old healed distal radial fracture and nonhealed ulnar styloid fracture. These are stable compared to left 10 x-ray 09/17/2020 Electronically signed by: Jose Cantu MD 08/20/2024 07:41 PM EST
--- OUTSIDE RECORDS SUMMARY | 2024-08-20 17:38 | XMS_ITS | Clinical Summary ---
Author Organization Unknown Care Team Providers Care Truss Driver Helper Name Role Phone KASSIDY PA, WESLEY Unavailable Unavailable ERIK PT, GUERA Unavailable Unavailable SPAFFORD OT, GATITO Unavailable Unavailable JUAN ANTONIO RUTHANN/QUINTEROS, RAINER Unavailable Unavail able [facility], MAXWELL Unavailable Unavailable ALCIRA AUTO SEAT COVER INSTALLER, JOEL Unavailable Unavailable BROCK ELECTRIC METER TESTER SHOP, ALIE Unavailable Unavaildarline LYLES RN, TERRENCE Unavailable Unavailable LORA ELECTRIC METER TESTER SHOP, ABHILASH Unavailable Unavailable Payers Payer Name Policy Type Policy Number Effective Date Expira tion Date MEDICARE.NGS.PDGM [id number] Problems Condition Name Condition Details Condition Category Status Onset Date Resolution Date Last Treatment Date Treating Clinician Comments APHASIA FOLLOWING CEREBRAL INFARCTION Active 09-20 00:00: 00 ATAXIA FOLLOWING CEREBRAL INFARCTION Active 09-20 00:00: 00 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 09-20 00:00: 00 ANXIETY DISORDER, UNSPECIFIED Active 09-20 00:00: 00 DEPRESSION, UNSPECIFIED Active 09-20 00:00: 00 ESSENTIAL (PRIMARY) HYPERTENSION Active 09-20 00:00: 00 PURE HYPERCHOLEST EROLEMIA, UNSPECIFIED Active 09-20 00:00: 00 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 Active 09-20 00:00: 00 THROMBOCYTOP ENIA, UNSPECIFIED Active 09-20 00:00: 00 OTHER SPECIFIED DISORDERS OF BRAIN Active 09-20 00:00: 00 UNSPECIFIED ASTHMA, UNCOMPLICATE D Active 09-20 00:00: 00 MIGRAINE, UNSP, NOT INTRACTABLE, WITHOUT STATUS MIGRAINOSUS Active 09-20 00:00: 00 OTHER SEASONAL ALLERGIC RHINITIS Active 09-20 00:00: 00 HETERONYMOUS BILATERAL FIELD DEFECTS Active 09-20 00:00: 00 OTHER DISEASES OF TONGUE Active 09-20 00:00: 00 Irritable bowel syndrome, unspecified Active 09-20 00:00: 00 GASTRO-ESOPH AGEAL REFLUX DISEASE WITHOUT ESOPHAGITIS Active 09-20 00:00: 00 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 THERAPY Active 09-20 00:00: 00 LONGTERM (CURRENT) USE OF ANTITHROMBOT ICS/ANTIPLAT ELETS Active 09-20 00:00: 00 PRESENCE OF PROSTHETIC HEART VALVE Active 09-20 00:00: 00 ACQUIRED ABSENCE OF OTHER ORGANS Active 09-20 00:00: 00 PERSONAL HISTORY OF NICOTINE DEPENDENCE Active 09-20 00:00: 00 Allergies, Adverse Reactions, Alerts Allergy Name Allergy Type Status Severity Reaction(s) Onset Date Inactive Date Treating Clinician Comments NO KNOWN ALLERGIES Propensity to adverse reactions Active 09-20 10:33: 30 Medications Ordered Medication Name Filled Medication Name Start Date Stop Date Current Medication? Ordering Clinician Indication Dosage Frequency Signature (SIG) Comments Components citalopram 10 mg tablet 02-20 00:00: 00 09-15 23:59 :00 No [id number] MOOD 1 tablet BEDTIME 1 tablet BEDTIME (route: oral) Med Classific ation: Central Nervous System Agents albuterol sulfate HFA 90 mcg/actuati on aerosol inhaler 03-16 00:00: 00 09-15 23:59 :00 No [id number] SOB 1 puff 4 TIMES DAILY 1 puff 4 TIMES DAILY (route: inhalation ) Med Classific ation: Respirato ry Therapy Agents [place] Allergy 180 mg tablet 03-16 00:00: 00 09-15 23:59 :00 No [id number] ALLERGY 1 tablet DAILY 1 tablet DAILY (route: oral) Med Classific ation: Respirato ry Therapy Agents alprazolam 0.25 mg tablet 03-16 00:00: 00 09-15 23:59 :00 No [id number] ANXIETY 1 tablet 2 TIMES DAILY 1 tablet 2 TIMES DAILY (route: oral) Med Classific ation: Central Nervous System Agents docusate sodium 100 mg capsule 03-16 00:00: 00 09-15 23:59 :00 No [id number] CONSTIPATIO N 1 capsule 2 TIMES DAILY 1 capsule 2 TIMES DAILY (route: oral) Med Classific ation: Gastroint estinal Therapy Agents fluticasone propionate 50 mcg/actuati on nasal spray,suspe nsion 03-16 00:00: 00 09-15 23:59 :00 No [id number] ALLERGY 2 spray DAILY 2 spray DAILY (route: nasal) Med Classific ation: Respirato ry Therapy Agents losartan 25 mg tablet 03-16 00:00: 00 09-15 23:59 :00 No [id number] HTN 1 tablet DAILY 1 tablet DAILY (route: oral) Med Classific ation: Cardiovas cular Therapy Agents melatonin 3 mg capsule 03-16 00:00: 00 09-15 23:59 :00 No [id number] SLEEP 1 capsule BEDTIME 1 capsule BEDTIME (route: oral) Med Classific ation: Central Nervous System Agents Miralax 17 gram oral powder packet 03-16 00:00: 00 09-15 23:59 :00 No [id number] CONSTIPATIO N 1 packet DAILY 1 packet DAILY (route: oral) Med Classific ation: Gastroint estinal Therapy Agents pantoprazol e 40 mg tablet,harjit yed release 03-16 00:00: 00 09-15 23:59 :00 No [id number] GERD 1 tablet EVERY AM 1 tablet EVERY AM (route: oral) Med Classific ation: Gastroint estinal Therapy Agents Tylenol 325 mg capsule 03-16 00:00: 00 09-15 23:59 :00 No [id number] PAIN 2 capsule EVERY 4 HOURS 2 capsule EVERY 4 HOURS (route: oral) Med Classific ation: Analgesic , Anti-infl ammatory or Antipyret ic Vitamin B-12 1,000 mcg tablet 03-16 00:00: 00 09-15 23:59 :00 No [id number] SUPPLEMENT 1 tablet DAILY 1 tablet DAILY (route: oral) Med Classific ation: Electroly te Balance-N utritiona l Products Vitamin D3 50 mcg (2,000 unit) capsule 7-13 00:00: 00 09-15 23:59 :00 No [id number] BONE HEALTH 1 mcg DAILY 1 mcg DAILY (route: oral) Med Classific ation: Electroly te Balance-N utritiona l Products celecoxib 200 mg capsule - 00:00: 00 05-13 23:59 :00 No [id number] NSAID 1 capsule 2 TIMES DAILY 1 capsule 2 TIMES DAILY (route: oral) Med Classific ation: Analgesic , Anti-infl ammatory or Antipyret ic Vitamin B-12 1,000 mcg tablet 2022-09 2-24 00:00: 00 09-20 00:00 :00 No [id number] Per instruc tions EVERY DAY Per instructio ns EVERY DAY (route: oral) Med Classific ation: Electroly te Balance-N ezzai - how to arabiaa 12Bis Products cholecalcif angel (vitamin D3) 50 mcg (2,000 unit) tablet 2022-09 2- 00:00: 00 09-20 00:00 :00 No [id number] Per instruc tions EVERY DAY Per instructio ns EVERY DAY (route: oral) Med Classific ation: Electroly ROLI Balance-N ezzai - how to arabiaa 12Bis Products Acetaminoph en Extra Strength 500 mg tablet 09-20 00:00: 00 Yes [id number] PAIN / FEVER 2 tablet EVERY 8 HOURS 2 tablet EVERY 8 HOURS (route: oral) Med Classific ation: Analgesic , Anti-infl ammatory or Antipyret ic alprazolam 0.25 mg tablet 09-20 00:00: 00 Yes [id number] ANXIETY 1 tablet 3 TIMES DAILY 1 tablet 3 TIMES DAILY (route: oral) Med Classific ation: Central Nervous System Agents aspirin 81 mg tablet,harjit yed release 09-20 00:00: 00 Yes [id number] ANTIPLATELE T 1 tablet DAILY 1 tablet DAILY (route: oral) Med Classific ation: Hematolog ical Agents atorvastati n 80 mg tablet 09-20 00:00: 00 Yes [id number] ANTIHYPERLI PIDEMIC 1 tablet BEDTIME 1 tablet BEDTIME (route: oral) Med Classific ation: Cardiovas cular Therapy Agents B complex-vit vallejo C-folic acid ER 400 mcg tablet,exte nded release 09-20 00:00: 00 Yes [id number] VITAMIN SUPPLEMENT 1 tablet DAILY 1 tablet DAILY (route: oral) Med Classific ation: Electroly te Balance-N utritiona l Products citalopram 20 mg tablet 09-20 00:00: 00 Yes [id number] ANXIETY 1 tablet BEDTIME 1 tablet BEDTIME (route: oral) Med Classific ation: Central Nervous System Agents clopidogrel 75 mg tablet 09-20 00:00: 00 Yes [id number] ANTICOAGULA NT 1 tablet DAILY 1 tablet DAILY (route: oral) Med Classific ation: Hematolog ical Agents docusate sodium 100 mg capsule 09-20 00:00: 00 Yes [id number] CONSTIPATIO N 1 capsule 2 TIMES DAILY 1 capsule 2 TIMES DAILY (route: oral) Med Classific ation: Gastroint estinal Therapy Agents fluticasone propionate 50 mcg/actuati on nasal spray,suspe nsion 09-20 00:00: 00 Yes [id number] WHEEZING/AL LERGY 1 spray EVERY 12 HOURS 1 spray EVERY 12 HOURS (route: nasal) Med Classific ation: Respirato ry Therapy Agents omeprazole 20 mg delayed release,dis integrating tablet 09-20 00:00: 00 Yes [id number] GERD 1 tablet DAILY 1 tablet DAILY (route: oral) Med Classific ation: Gastroint estinal Therapy Agents dicyclomine 10 mg capsule 10-21 00:00: 00 Yes [id number] IRRITABLE BOWEL 1 capsule EVERY 6 HOURS 1 capsule EVERY 6 HOURS (route: oral) Med Classific ation: Gastroint estinal Therapy Agents Miralax 17 gram/dose oral powder - 00:00: 00 Yes [id number] DIVERTICULI TIS 17 gram DAILY 17 gram DAILY (route: oral) Med Classific ation: Gastroint estinal Therapy Agents famotidine 20 mg tablet 10-24 00:00: 00 Yes [id number] DIVERTICULI TIS 1 tablet DAILY 1 tablet DAILY (route: oral) Med Classific ation: Gastroint estinal Therapy Agents Vital Signs Vital Name Observation Time Observation Value Commen ts Temperature 2023-11-17 12:24:00.000 97.3 [degF] Temperature 2023-11-01 10:37:00.000 98.4 [degF] Temperature 2023-10-31 11:04:00.000 97.7 [degF] Temperature 2023-10-27 12:21:00.000 98.1 [degF] Temperature 2023-10-24 15:34:00.000 98.1 [degF] Temperature 2023-10-24 13:48:00.000 97 [degF] Temperature 2023-10-19 15:13:00.000 97.6 [degF] Temperature 2023-10-19 14:49:00.000 97.6 [degF] Temperature 2023-10-13 10:32:00.000 97.7 [degF] Temperature 2023-10-11 10:25:00.000 97.2 [degF] Temperature 2023-10-06 13:57:00.000 97.8 [degF] Temperature 2023-10-04 13:30:00.000 97.6 [degF] Temperature 2023-10-03 14:49:00.000 96.8 [degF] Temperature 2023-09-29 14:08:00.000 97.4 [degF] Temperature 2023-09-29 11:42:00.000 97.3 [degF] Temperature 2023-09-27 10:32:00.000 97.1 [degF] Temperature 2023-09-26 12:48:00.000 97.6 [degF] Temperature 2023-09-21 19:57:00.000 97 [degF] Temperature 2023-09-21 14:45:00.000 97.4 [degF] Temperature 2023-09-20 11:23:00.000 97.8 [degF] BMI (%) 2023-09-20 10:45:46.000 27 kg/m2 Height 2023-09-20 10:45:35.000 66 [in_us] Pulse 2023-11-17 12:24:00.000 82 /min Pulse 2023-11-01 10:37:00.000 69 /min Pulse 2023-10-31 11:04:00.000 88 /min Pulse 2023-10-27 12:21:00.000 80 /min Pulse 2023-10-24 15:34:00.000 88 /min Pulse 2023-10-24 13:48:00.000 80 /min Pulse 2023-10-19 15:13:00.000 86 /min Pulse 2023-10-19 14:49:00.000 80 /min Pulse 2023-10-13 10:32:00.000 84 /min Pulse 2023-10-11 10:25:00.000 83 /min Pulse 2023-10-06 13:57:00.000 88 /min Pulse 2023-10-04 13:30:00.000 88 /min Pulse 2023-10-03 14:49:00.000 99 /min Pulse 2023-09-29 14:08:00.000 113 /min Pulse 2023-09-29 11:42:00.000 80 /min Pulse 2023-09-27 10:32:00.000 90 /min Pulse 2023-09-26 12:48:00.000 100 /min Pulse 2023-09-21 19:57:00.000 62 /min Pulse 2023-09-21 14:45:00.000 92 /min Pulse 2023-09-20 11:23:00.000 80 /min O2 Saturation (%) 2023-11-17 12:24:00.000 98 % O2 Saturation (%) 2023-11-01 10:37:00.000 96 % O2 Saturation (%) 2023-10-31 11:05:00.000 95 % O2 Saturation (%) 2023-10-24 15:34:00.000 96 % O2 Saturation (%) 2023-10-24 13:48:00.000 98 % O2 Saturation (%) 2023-10-19 15:13:00.000 98 % O2 Saturation (%) 2023-10-19 14:49:00.000 97 % O2 Saturation (%) 2023-10-13 10:35:00.000 97 % O2 Saturation (%) 2023-10-11 10:25:00.000 96 % O2 Saturation (%) 2023-10-06 13:57:00.000 95 % O2 Saturation (%) 2023-10-04 13:30:00.000 96 % O2 Saturation (%) 2023-10-03 14:49:00.000 96 % O2 Saturation (%) 2023-09-29 14:08:00.000 99 % O2 Saturation (%) 2023-09-29 11:42:00.000 94 % O2 Saturation (%) 2023-09-27 10:32:00.000 98 % O2 Saturation (%) 2023-09-26 12:49:00.000 98 % O2 Saturation (%) 2023-09-21 19:57:00.000 96 % O2 Saturation (%) 2023-09-20 11:23:00.000 98 % Respirations 2023-11-17 12:24:00.000 18 /min Respirations 2023-11-01 10:37:00.000 16 /min Respirations 2023-10-31 11:04:00.000 18 /min Respirations 2023-10-27 12:21:00.000 18 /min Respirations 2023-10-24 15:34:00.000 18 /min Respirations 2023-10-24 13:48:00.000 16 /min Respirations 2023-10-19 15:13:00.000 18 /min Respirations 2023-10-19 14:49:00.000 16 /min Respirations 2023-10-13 10:32:00.000 18 /min Respirations 2023-10-11 10:25:00.000 18 /min Respirations 2023-10-06 13:57:00.000 18 /min Respirations 2023-10-04 13:30:00.000 18 /min Respirations 2023-10-03 14:49:00.000 18 /min Respirations 2023-09-29 14:08:00.000 18 /min Respirations 2023-09-29 11:42:00.000 18 /min Respirations 2023-09-27 10:32:00.000 18 /min Respirations 2023-09-26 12:48:00.000 18 /min Respirations 2023-09-21 19:57:00.000 16 /min Respirations 2023-09-21 14:45:00.000 18 /min Respirations 2023-09-20 11:23:00.000 18 /min Weight (lbs) 2023-09-20 10:45:46.000 170 [lb_av] Systolic Blood Pressure 2023-11-17 12:24:00.000 116 mm [Hg] Systolic Blood Pressure 2023-11-01 10:37:00.000 118 mm [Hg] Systolic Blood Pressure 2023-10-31 11:04:00.000 118 mm [Hg] Systolic Blood Pressure 2023-10-27 12:21:00.000 120 mm [Hg] Systolic Blood Pressure 2023-10-24 15:34:00.000 128 mm [Hg] Systolic Blood Pressure 2023-10-24 13:48:00.000 112 mm [Hg] Systolic Blood Pressure 2023-10-19 15:13:00.000 122 mm [Hg] Systolic Blood Pressure 2023-10-19 14:49:00.000 130 mm [Hg] Systolic Blood Pressure 2023-10-13 10:32:00.000 126 mm [Hg] Systolic Blood Pressure 2023-10-11 10:40:00.000 135 mm [Hg] Systolic Blood Pressure 2023-10-06 13:57:00.000 124 mm [Hg] Systolic Blood Pressure 2023-10-04 13:30:00.000 122 mm [Hg] Systolic Blood Pressure 2023-10-03 14:49:00.000 120 mm [Hg] Systolic Blood Pressure 2023-09-29 14:08:00.000 108 mm [Hg] Systolic Blood Pressure 2023-09-29 11:42:00.000 118 mm [Hg] Systolic Blood Pressure 2023-09-27 10:32:00.000 146 mm [Hg] Systolic Blood Pressure 2023-09-26 12:48:00.000 122 mm [Hg] Systolic Blood Pressure 2023-09-21 19:57:00.000 120 mm [Hg] Systolic Blood Pressure 2023-09-21 14:45:00.000 102 mm [Hg] Systolic Blood Pressure 2023-09-20 11:23:00.000 100 mm [Hg] Diastolic Blood Pressure 2023-11-17 12:24:00.000 74 mm [Hg] Diastolic Blood Pressure 2023-11-01 10:37:00.000 79 mm [Hg] Diastolic Blood Pressure 2023-10-31 11:04:00.000 62 mm [Hg] Diastolic Blood Pressure 2023-10-27 12:21:00.000 66 mm [Hg] Diastolic Blood Pressure 2023-10-24 15:34:00.000 72 mm [Hg] Diastolic Blood Pressure 2023-10-24 13:48:00.000 60 mm [Hg] Diastolic Blood Pressure 2023-10-19 15:13:00.000 78 mm [Hg] Diastolic Blood Pressure 2023-10-19 14:49:00.000 72 mm [Hg] Diastolic Blood Pressure 2023-10-13 10:32:00.000 62 mm [Hg] Diastolic Blood Pressure 2023-10-11 10:40:00.000 85 mm [Hg] Diastolic Blood Pressure 2023-10-06 13:57:00.000 70 mm [Hg] Diastolic Blood Pressure 2023-10-04 13:30:00.000 62 mm [Hg] Diastolic Blood Pressure 2023-10-03 14:49:00.000 68 mm [Hg] Diastolic Blood Pressure 2023-09-29 14:08:00.000 58 mm [Hg] Diastolic Blood Pressure 2023-09-29 11:42:00.000 64 mm [Hg] Diastolic Blood Pressure 2023-09-27 10:32:00.000 80 mm [Hg] Diastolic Blood Pressure 2023-09-26 12:48:00.000 66 mm [Hg] Diastolic Blood Pressure 2023-09-21 19:57:00.000 70 mm [Hg] Diastolic Blood Pressure 2023-09-21 14:45:00.000 60 mm [Hg] Diastolic Blood Pressure 2023-09-20 11:23:00.000 60 mm [Hg] Plan of Treatment Planned Activity Planned Date Details Comments Future Scheduled Test MEDICATION MANAGEMENT; REGISTERED NURSE/LICENSED PRACTICAL NURSE TO REVIEW MEDICATIONS FOR INTERACTIONS, EFFECTIVENESS OF DRUG THERAPY, AND SIGNS/SYMPTOMS OF ADVERSE REACTIONS. MAY INSTRUCT AND REINFORCE MEDICATION TEACHING RELATED TO THE USE OF MEDICATIONS, DOSAGE, FREQUENCY, PURPOSE, SIDE EFFECTS, AND TO REPORT COMPLICATIONS. [code = MEDICATION MANAGEMENT; REGISTERED NURSE/LICENSED PRACTICAL NURSE TO REVIEW MEDICATIONS FOR INTERACTIONS, EFFECTIVENESS OF DRUG THERAPY, AND SIGNS/SYMPTOMS OF ADVERSE REACTIONS. MAY INSTRUCT AND REINFORCE MEDICATION TEACHING RELATED TO THE USE OF MEDICATIONS, DOSAGE, FREQUENCY, PURPOSE, SIDE EFFECTS, AND TO REPORT COMPLICATIONS.] Future Scheduled Test ANTICOAGUL ATION MANAGEMENT; REGISTERED NURSE TO ASSESS AND TEACH/LICENSED PRACTICAL NURSE TO OBSERVE/TEACH/MONITOR EFFECTIVENESS OF ANTICOAGULATION THERAPY. REGISTERED NURSE/LICENSED PRACTICAL TO INSTRUCT ON SIGNS AND SYMPTOMS OF BLEEDING/ADVERSE REACTIONS TO REPORT TO PHYSICIAN. [code = ANTICOAGULATION MANAGEMENT; REGISTERED NURSE TO ASSESS AND TEACH/LICENSED PRACTICAL NURSE TO OBSERVE/TEACH/MONITOR EFFECTIVENESS OF ANTICOAGULATION THERAPY. REGISTERED NURSE/LICENSED PRACTICAL TO INSTRUCT ON SIGNS AND SYMPTOMS OF BLEEDING/ADVERSE REACTIONS TO REPORT TO PHYSICIAN. ] Future Scheduled Test FALL REDUC TION MANAGEMENT; REGISTERED NURSE TO ASSESS AND TEACH/LICENSED PRACTICAL NURSE TO OBSERVE AND TEACH ON EDUCATION AND INTERVENTION TO IDENTIFY FALL RISK FACTORS SUCH MEDICATIONS THAT MAY CAUSE DIZZINESS, CHRONIC DISEASES, PSYCHOLOGICAL FACTORS, AND EMPOWER/EDUCATE PATIENT/CAREGIVER TO MINIMIZE FALL RISK. [code = FALL REDUCTION MANAGEMENT; REGISTERED NURSE TO ASSESS AND TEACH/LICENSED PRACTICAL NURSE TO OBSERVE AND TEACH ON EDUCATION AND INTERVENTION TO IDENTIFY FALL RISK FACTORS SUCH MEDICATIONS THAT MAY CAUSE DIZZINESS, CHRONIC DISEASES, PSYCHOLOGICAL FACTORS, AND EMPOWER/EDUCATE PATIENT/CAREGIVER TO MINIMIZE FALL RISK.] Future Scheduled Test GENITOURIN BETTY MANAGEMENT; REGISTERED NURSE TO ASSESS AND TEACH/LICENSED PRACTICAL NURSE TO OBSERVE AND TEACH RELATED TO ALTERED GENITOURINARY STATUS TO MINIMIZE COMPLICATIONS AND REDUCE HOSPITALIZATION. [code = GENITOURINARY MANAGEMENT; REGISTERED NURSE TO ASSESS AND TEACH/LICENSED PRACTICAL NURSE TO OBSERVE AND TEACH RELATED TO ALTERED GENITOURINARY STATUS TO MINIMIZE COMPLICATIONS AND REDUCE HOSPITALIZATION. ] Future Scheduled Test NEUROLOGIC AL SYSTEM MANAGEMENT; REGISTERED NURSE TO ASSESS AND TEACH/LICENSED PRACTICAL NURSE TO OBSERVEAND TEACH RELATED TO ALTERED NEUROLOGICAL STATUS TO MINIMIZE COMPLICATIONS AND REDUCE HOSPITALIZATION. [code = NEUROLOGICAL SYSTEM MANAGEMENT; REGISTERED NURSE TO ASSESS AND TEACH/LICENSED PRACTICAL NURSE TO OBSERVEAND TEACH RELATED TO ALTERED NEUROLOGICAL STATUS TO MINIMIZE COMPLICATIONS AND REDUCE HOSPITALIZATION.] Future Scheduled Test CEREBRAL V ASCULAR ACCIDENT MANAGEMENT; REGISTERED NURSE/LICENSED PRACTICAL NURSE TO PROVIDE SKILLED TEACHING AND MANAGEMENT OF POST CEREBRAL VASCULAR ACCIDENT. [code = CEREBRAL VASCULAR ACCIDENT MANAGEMENT; REGISTERED NURSE/LICENSED PRACTICAL NURSE TO PROVIDE SKILLED TEACHING AND MANAGEMENT OF POST CEREBRAL VASCULAR ACCIDENT.] Future Scheduled Test RN TO OBSE RVE, ASSESS, EVALUATE, AND DEVELOP AN INDIVIDUALIZED PLAN OF CARE. AGENCY MAY ACCEPT ORDERS FROM CONSULTING PHYSICIANS REGISTERED NURSETO OBSERVE AND ASSESS/LICENSED PRACTICAL NURSE TO OBSERVE FOR RISK FOR FALLS AND INSTRUCT IN FALL PREVENTION, HOME SAFETY, MEDICATION MANAGEMENT, INFECTION PREVENTION, AND NUTRITION MANAGEMENT. REGISTERED NURSE/LICENSED PRACTICAL NURSE MAY PERFORM O2 SATURATION LEVEL ON ADMISSION AND PRN FOR RN TO ASSESS/ELECTRIC METER TESTER SHOP TO OBSERVE PATIENT, WITH NOTIFICATION TO THE PHYSICIAN IF SATURATION IS 90% IN THE ABSENCE OF MORE SPECIFIC PARAMETERS FROM THE PHYSICIAN. AGENCY MAY PERFORM A RESUMPTION OF CARE VISIT FOLLOWING ANY HOSPITAL ADMISSION. REGISTERED NURSE/LICENSED PRACTICAL NURSE TO MONITOR CO-MORBID CONDITIONS LISTED ON THE PLAN OF CARE AND ANY NEW CONDITIONS THAT PRESENT THEMSELVES DURING THIS EPISODE TO IDENTIFY CHANGES AND INTERVENE TO MINIMIZE COMPLICATIONS. [code = RN TO OBSERVE, ASSESS, EVALUATE, AND DEVELOP AN INDIVIDUALIZED PLAN OF CARE. AGENCY MAY ACCEPT ORDERS FROM CONSULTING PHYSICIANS REGISTERED NURSETO OBSERVE AND ASSESS/LICENSED PRACTICAL NURSE TO OBSERVE FOR RISK FOR FALLS AND INSTRUCT IN FALL PREVENTION, HOME SAFETY, MEDICATION MANAGEMENT, INFECTION PREVENTION, AND NUTRITION MANAGEMENT. REGISTERED NURSE/LICENSED PRACTICAL NURSE MAY PERFORM O2 SATURATION LEVEL ON ADMISSION AND PRN FOR RN TO ASSESS/ELECTRIC METER TESTER SHOP TO OBSERVE PATIENT, WITH NOTIFICATION TO THE PHYSICIAN IF SATURATION IS 90% IN THE ABSENCE OF MORE SPECIFIC PARAMETERS FROM THE PHYSICIAN. AGENCY MAY PERFORM A RESUMPTION OF CARE VISIT FOLLOWING ANY HOSPITAL ADMISSION. REGISTERED NURSE/LICENSED PRACTICAL NURSE TO MONITOR CO-MORBID CONDITIONS LISTED ON THE PLAN OF CARE AND ANY NEW CONDITIONS THAT PRESENT THEMSELVES DURING THIS EPISODE TO IDENTIFY CHANGES AND INTERVENE TO MINIMIZE COMPLICATIONS.] Future Scheduled Test PAIN MANAG EMENT; REGISTERED NURSE TO ASSESS AND TEACH/LICENSED PRACTICAL NURSE TO OBSERVE AND TEACH AND PROVIDE EDUCATION ON PAIN MANAGEMENT TECHNIQUES. [code = PAIN MANAGEMENT; REGISTERED NURSE TO ASSESS AND TEACH/LICENSED PRACTICAL NURSE TO OBSERVE AND TEACH AND PROVIDE EDUCATION ON PAIN MANAGEMENT TECHNIQUES.] Future Scheduled Test PRN VISITS ; NUMBER OF REGISTERED NURSE/LICENSED PRACTICALPRN VISITS: 3 REGISTERED NURSE/LICENSED PRACTICALTO PERFORM: ASSESSMENT AND INTERVENTION FOR THE FOLLOWING REASONS: CHANGE IN STATUS OR DISEASE COMPLICATIONS [code = PRN VISITS; NUMBER OF REGISTERED NURSE/LICENSED PRACTICALPRN VISITS: 3 REGISTERED NURSE/LICENSED PRACTICALTO PERFORM: ASSESSMENT AND INTERVENTION FOR THE FOLLOWING REASONS: CHANGE IN STATUS OR DISEASE COMPLICATIONS ] Future Scheduled Test RISK FOR H OSPITALIZATION; REGISTERED NURSE TO ASSESS /TEACH, LICENSED PRACTICAL NURSE TO OBSERVE/TEACH PATIENT/CAREGIVER ON RISK FOR HOSPITALIZATION/EMERGENCY ROOM VISITS, TEACH SIGNS AND SYMPTOMS THAT PUT PATIENT AT RISK, WHEN TO NOTIFY NURSE/PHYSICIAN OF COMPLICATIONS/DECLINE, AND WHEN TO CALL 911. [code = RISK FOR HOSPITALIZATION; REGISTERED NURSE TO ASSESS /TEACH, LICENSED PRACTICAL NURSE TO OBSERVE/TEACH PATIENT/CAREGIVER ON RISK FOR HOSPITALIZATION/EMERGENCY ROOM VISITS, TEACH SIGNS AND SYMPTOMS THAT PUT PATIENT AT RISK, WHEN TO NOTIFY NURSE/PHYSICIAN OF COMPLICATIONS/DECLINE, AND WHEN TO CALL 911.] Future Scheduled Test CARDIOVASC ULAR SYSTEM; REGISTERED NURSE TO ASSESS /TEACH, LICENSED PRACTICAL NURSE TO OBSERVE/TEACH RELATED TO ALTERED CARDIOVASCULAR STATUS TO MINIMIZE COMPLICATIONS AND REDUCE HOSPITALIZATION. [code = CARDIOVASCULAR SYSTEM; REGISTERED NURSE TO ASSESS /TEACH, LICENSED PRACTICAL NURSE TO OBSERVE/TEACH RELATED TO ALTERED CARDIOVASCULAR STATUS TO MINIMIZE COMPLICATIONS AND REDUCE HOSPITALIZATION.] Future Scheduled Test SKIN INTEG RITY REGISTERED NURSE TO ASSESS AND TEACH/LICENSED PRACTICAL NURSE TO OBSERVE AND TEACH INTEGUMENTARY STATUS TO IDENTIFY CHANGES AND INTERVENE TO MINIMIZE COMPLICATIONS. PROVIDE SKILLED TEACHING OF GENERAL WOUND AND SKIN CARE AND PREVENTION RELATED TO POTENTIAL FOR OR ACTUAL ALTERED SKIN INTEGRITY [code = SKIN INTEGRITY REGISTERED NURSE TO ASSESS AND TEACH/LICENSED PRACTICAL NURSE TO OBSERVE AND TEACH INTEGUMENTARY STATUS TO IDENTIFY CHANGES AND INTERVENE TO MINIMIZE COMPLICATIONS. PROVIDE SKILLED TEACHING OF GENERAL WOUND AND SKIN CARE AND PREVENTION RELATED TO POTENTIAL FOR OR ACTUAL ALTERED SKIN INTEGRITY ] Future Scheduled Test AGENCY MAY PERFORM A RESUMPTION OF CARE VISIT FOLLOWING ANY HOSPITAL ADMISSION. PHYSICAL THERAPY TO EVALUATE, ASSESS AND MONITOR, PROVIDE SKILLED THERAPEUTIC INTERVENTION, ACTIVITY, EDUCATION, AND TRAINING TO ADDRESS: TRANSFER TRAINING (PT) GAIT TRAINING (PT) NEUROMUSCULAR RE-EDUCATION / BALANCE RETRAINING (PT) THERAPEUTIC EXERCISES (PT) STAIR TRAINING (PT) OXYGEN SATURATION (PT). NOTIFY MD IF 02SATS BELOW 90% AFTER 10 MIN OF REST. IDENTIFY FALL RISK FACTORS AND ESTABLISH HOME EXERCISE PROGRAM TO MINIMIZE FALL RISK. MAY TEACH THE PATIENT FLOOR RECOVERY WHEN CLINICALLY APPROPRIATE (PT) PAIN MANAGEMENT (PT) CVA NEED FOR PATIENT EDUCATION ? PT [code = AGENCY MAY PERFORM A RESUMPTION OF CARE VISIT FOLLOWING ANY HOSPITAL ADMISSION. PHYSICAL THERAPY TO EVALUATE, ASSESS AND MONITOR, PROVIDE SKILLED THERAPEUTIC INTERVENTION, ACTIVITY, EDUCATION, AND TRAINING TO ADDRESS: TRANSFER TRAINING (PT) GAIT TRAINING (PT) NEUROMUSCULAR RE-EDUCATION / BALANCE RETRAINING (PT) THERAPEUTIC EXERCISES (PT) STAIR TRAINING (PT) OXYGEN SATURATION (PT). NOTIFY MD IF 02SATS BELOW 90% AFTER 10 MIN OF REST. IDENTIFY FALL RISK FACTORS AND ESTABLISH HOME EXERCISE PROGRAM TO MINIMIZE FALL RISK. MAY TEACH THE PATIENT FLOOR RECOVERY WHEN CLINICALLY APPROPRIATE (PT) PAIN MANAGEMENT (PT) CVA NEED FOR PATIENT EDUCATION ? PT ] Future Scheduled Test AGENCY MAY PERFORM A RESUMPTION OF CARE VISIT FOLLOWING ANY HOSPITAL ADMISSION. OCCUPATIONAL THERAPY TO EVALUATE, ASSESS, AND MONITOR, PROVIDE SKILLED THERAPEUTIC INTERVENTION, ACTIVITY, EDUCATION, AND TRAINING TO ADDRESS; DECLINE IN IADLS, FALL PREVENTION, CVA MANAGEMENT. HOME ESTABLISHMENT AND HOME MAINTENANCE (OT) OXYGEN SATURATION (OT); NOTIFY MD IF O2 SATS BELOW 90% AFTER 10 MIN OF REST FALL REDUCTION (OT) CVA EDUCATION (OT) [code = AGENCY MAY PERFORM A RESUMPTION OF CARE VISIT FOLLOWING ANY HOSPITAL ADMISSION. OCCUPATIONAL THERAPY TO EVALUATE, ASSESS, AND MONITOR, PROVIDE SKILLED THERAPEUTIC INTERVENTION, ACTIVITY, EDUCATION, AND TRAINING TO ADDRESS; DECLINE IN IADLS, FALL PREVENTION, CVA MANAGEMENT. HOME ESTABLISHMENT AND HOME MAINTENANCE (OT) OXYGEN SATURATION (OT); NOTIFY MD IF O2 SATS BELOW 90% AFTER 10 MIN OF REST FALL REDUCTION (OT) CVA EDUCATION (OT)] Future Scheduled Test ST EVALUAT ION PERFORMED. NO ADDITIONAL VISITS REQUIRED. [code = ST EVALUATION PERFORMED. NO ADDITIONAL VISITS REQUIRED.] Goal 2023-11-17 Patient Goal - F EEL STEADY, THINK CLEARLY, FEEL BETTER Goal Provider Goal - PATIENT/CAREGIVER TO VERBALIZE, AND CONSISTENTLY DEMONSTRATE EFFECTIVE, SAFE MANAGEMENT OF MEDICATION INCLUDING KNOWLEDGE OF EFFECTIVENESS, POTENTIAL SIDE EFFECTS AND DRUG REACTIONS AND WHEN TO CONTACT THE APPROPRIATE CARE PROVIDER. PATIENT/CAREGIVER WILL BE ABLE TO VERBALIZE UNDERSTANDING OF MEDICATION REGIMEN AND ACCURATELY TAKE MEDICATIONS PRESCRIBED WITHOUT ADVERSE EFFECTS BY EOE Goal Provider Goal - INEFFECTIVE ANTICOAGULATION THERAPY WILL BE IDENTIFIED AND PROMPTLY REPORTED TO THE PHYSICIAN. PATIENT / CAREGIVER WILL VERBALIZE UNDERSTANDING OF MEASURES TO MAINTAIN EFFECTIVE ANTICOAGULATION THERAPY BY EOE Goal Provider Goal - PATIENT/CAREGIVER ABLE TO IDENTIFY FALL RISK FACTORS AND IMPLEMENT STRATEGIES TO MINIMIZE FALL RISK. PATIENT/CAREGIVER WILL VERBALIZE/DEMONSTRATE AN ABILITY TO ADHERE TO FALL REDUCTION SELF MANAGEMENT AND LIFE-STYLE CHANGES AT DISCHARGE. PERSONAL GOAL(S) STATED BY PATIENT/CAREGIVER WILL BE MET BY EOE Goal Provider Goal - PATIENT / CAREGIVER WILL VERBALIZE/DEMONSTRATE UNDERSTANDING OF MEASURES TO MANAGE ALTERED GENITOURINARY STATUS BY END OF EPISODE. Goal Provider Goal - PATIENT / CAREGIVER WILL VERBALIZE/DEMONSTRATE UNDERSTANDING OF MEASURES TO MANAGE ALTERED NEUROLOGICAL STATUS BY EOE Goal Provider Goal - PATIENT / CAREGIVER WILL VERBALIZE/DEMONSTRATE CARE AND SELF-MANAGEMENT OF CVA TO MINIMIZE COMPLICATIONS AND AVOID HOSPITALIZATION BY END OF EPISODE. Goal Provider Goal - A PLAN OF CARE WILL BE ESTABLISHED THAT MEETS THE PATIENTS NEEDS. PATIENT WILL DEMONSTRATE OXYGEN SATURATION WITHIN NORMAL LIMITS OR PATIENTS OPTIMAL LEVEL ESTABLISHED BY THE PHYSICIAN THROUGHOUT CARE. CHANGES TO CO-MORBID CONDITIONS AND ANY NEW CONDITIONS WILL BE IDENTIFIED AND REPORTED TO THE PHYSICIAN. Goal Provider Goal - PATIENT / CAREGIVER WILL VERBALIZE / DEMONSTRATE UNDERSTANDING OF PAIN CONTROL MEASURES BY EOE Goal Provider Goal - Goal Provider Goal - PATIENT/CAREGIVER WILL VERBALIZE UNDERSTANDING OF SIGNS AND SYMPTOMS THAT PUT THE PATIENT AT RISK FOR HOSPITALIZATION /EMERGENCY ROOM VISITS, WHEN TO NOTIFY NURSE/PHYSICIAN OF COMPLICATIONS/DECLINE AND WHEN TO CALL 911. Goal Provider Goal - PATIENT / CAREGIVER WILL VERBALIZE/DEMONSTRATE UNDERSTANDING OF MEASURES TO MANAGE ALTERED CARDIOVASCULAR STATUS BY EOE Goal Provider Goal - CHANGES IN SKIN INTEGRITY STATUS WILL BE IDENTIFIED AND REPORTED TO THE PHYSICIAN FOR PROMPT INTERVENTION. PATIENT / CAREGIVER WILL VERBALIZE/DEMONSTRATE ADEQUATE KNOWLEDGE OF INTEGUMENTARY STATUS AND APPROPRIATE MEASURES TO PROMOTE SKIN INTEGRITY AND PREVENT INJURY BY EOE Goal Provider Goal - PT STG: PATIENT WILL DEMONSTRATE IMPROVED TRANSFERS FROM SUP TO INDEPENDENT WITH UE ASSIST WITHIN 1 WEEK PT LTG: PATIENT WILL DEMONSTRATE IMPROVED AMBULATION FROM SBA TO INDEPENDENT WITHOUT AD WITHIN 3 WEEKS PT LTG: PATIENT WILL DEMONSTRATE REDUCED FALL RISK EVIDENCED BY TUG TEST (CUT SCORE >11 SECONDS INDICATES INCREASED FALL RISK) IMPROVING FROM 26 SECONDS TO 13 SECONDS WITHIN 3 WEEKS PT STG: PATIENT WILL DEMONSTRATE INDEPENDENCE WITH LOWER EXTREMITY HOME EXERCISE PROGRAM WITHIN 2 WEEKS PT LTG: PATIENT WILL DEMONSTRATE IMPROVED FUNCTIONAL STRENGTH EVIDENCED BY FIVE TIMES SIT TO STAND TEST (CUT SCORE >12 SECONDS INDICATES AN INCREASED FALL RISK) IMPROVING FROM 23 SECONDS TO 15 SECONDS WITHIN 3 WEEKS PT LTG: PATIENT WILL DEMONSTRATE INCREASED STRENGTH OF BILATERAL LES FROM 3+/5 TO 4/5 WITHIN 3 WEEKS IN ORDER TO IMPROVE SAFETY AND STABILITY WITH GAIT AND STAIRS PT LTG: PATIENT WILL DEMONSTRATE IMPROVED ABILITY TO SAFELY NEGOTIATE STAIRS FROM SBA TO INDEPENDENT WITH RAIL WITHIN 3 WEEKS PATIENT WILL MAINTAIN OXYGEN SATURATION WITHIN PHYSICIAN ORDERED PARAMETERS THROUGHOUT EPISODE OF CARE PATIENT/CAREGIVER WILL DEMONSTRATE ADHERENCE TO FALL REDUCTION SELF MANAGEMENT TO MINIMIZE FALL BY END OF EPISODE. PT GOAL: PATIENT/CAREGIVER WILL VERBALIZE UNDERSTANDING OF PAIN MANAGEMENT BY END OF EPISODE. PATIENT/CAREGIVER WILL BE VERBALIZE UNDERSTANDING OF A CVA, SIGNS/SYMPTOMS TO REPORT, WELL SELF-MANAGEMENT AND LIFE-STYLE CHANGES BY END OF EPISODE. Goal Provider Goal - OT LTG: PATIENT WILL DEMONSTRATE THE ABILITY TO COMPLETE HOME ESTABLISHMENT/MANAGEMENT FROM MOD ASSIST TO INDEPENDENT WITHIN 1 WEEK. PATIENT WILL MAINTAIN OXYGEN SATURATION WITHIN PHYSICIAN ORDERED PARAMETERS THROUGHOUT THE EPISODE OF CARE. PATIENT/CAREGIVER WILL BE ABLE TO IMPLEMENT OCCUPATIONAL THERAPY EDUCATION RECOMMENDATIONS SPECIFIC TO FALL REDUCTION FOR IMPROVED ADL/IADL COMPLETION AND HOME SAFETY BY END OF EPISODE. OT GOAL: PATIENT/CAREGIVER WILL INCORPORATE CVA PATIENT EMPOWERMENT STRATEGIES INTO DAILY ROUTINE BY END OF EPISODE. Goal Provider Goal - Reason for Visit INDEPENDENT IN THE HOME Encounters Start Date/Time End Date/Time Encounter Type Admission Type Attending [facility] [[email or web address] Department Encounter ID Discharge Date Discharge Status Discharge Condition Discharge Reason Percent Goals Met 2023-09-20 00:00:00 2023-11-17 00:00:00 Outpatient TERRENCE SABILLON [facility] [id number] 2023-11-17 00:00:00 DISCHARGE TO HOME OR SELF CARE INDEPENDEN T IN THE HOME HH OR PAL- GOALS MET 79.49
--- OUTSIDE RECORDS SUMMARY | 2024-08-20 17:38 | XMS_ITS | Clinical Summary ---
Author Organization Unknown Care Team Providers Care Pitch Flaker Name Role Phone KASSIDY PA, WESLEY Unavailable Unavailable ERIK PT, GUERA Unavailable Unavailable SPAFFORD OT, GATITO Unavailable Unavailable JUAN ANTONIO RUTHANN/QUINTEROS, RAINER Unavailable Unavail able [facility], MAXWELL Unavailable Unavailable ALCIRA PRODUCE SHIPPER, JOEL Unavailable Unavailable BROCK SENIOR JAVA PROGRAMMER, ALIE Unavailable Unavaildarline LYLES RN, TERRENCE Unavailable Unavailable LORA SENIOR JAVA PROGRAMMER, ABHILASH Unavailable Unavailable Payers Payer Name Policy Type Policy Number Effective Date Expira tion Date MEDICARE.NGS.PDGM [id number] Problems Condition Name Condition Details Condition Category [...] WITHOUT ESOPHAGITIS Active 09-20 00:00: 00 OTHER MANAGER LOCATION (CURRENT) DRUG THERAPY Active 09-20 00:00: 00 SENIOR CARE (CURRENT) USE OF ANTITHROMBOT ICS/ANTIPLAT ELETS Active [...] 02-20 00:00: 00 09-15 23:59 :00 No [id number] MOOD 1 tablet BEDTIME 1 tablet BEDTIME (route: oral) Med Classific ation: Central Nervous System Agents albuterol sulfate HFA 90 mcg/actuati on aerosol inhaler 03-16 00:00: 00 09-15 23:59 :00 No [id number] SOB 1 puff 4 TIMES DAILY 1 puff 4 TIMES DAILY (route: inhalation ) Med Classific ation: Respirato ry Therapy Agents [place] Allergy 180 mg tablet 03-16 00:00: 00 09-15 23:59 :00 No [id number] ALLERGY 1 tablet DAILY 1 tablet DAILY (route: oral) Med Classific ation: Respirato ry Therapy Agents alprazolam 0.25 mg tablet 03-16 00:00: 00 09-15 23:59 :00 No [id number] ANXIETY 1 tablet 2 TIMES DAILY 1 tablet 2 TIMES DAILY (route: oral) Med Classific ation: Central Nervous System Agents docusate sodium 100 mg capsule 03-16 00:00: 00 09-15 23:59 :00 No [id number] CONSTIPATIO N 1 capsule 2 TIMES DAILY 1 capsule 2 TIMES DAILY (route: oral) Med Classific ation: Gastroint estinal Therapy Agents fluticasone propionate 50 mcg/actuati on nasal spray,suspe nsion 03-16 00:00: 00 09-15 23:59 :00 No [id number] ALLERGY 2 spray DAILY 2 spray DAILY (route: nasal) Med Classific ation: Respirato ry Therapy Agents losartan 25 mg tablet 03-16 00:00: 00 09-15 23:59 :00 No [id number] HTN 1 tablet DAILY 1 tablet DAILY (route: oral) Med Classific ation: Cardiovas cular Therapy Agents melatonin 3 mg capsule 03-16 00:00: 00 09-15 23:59 :00 No [id number] SLEEP 1 capsule BEDTIME 1 capsule BEDTIME (route: oral) Med Classific ation: Central Nervous System Agents Miralax 17 gram oral powder packet 03-16 00:00: 00 09-15 23:59 :00 No [id number] CONSTIPATIO N 1 packet DAILY 1 packet DAILY (route: oral) Med Classific ation: Gastroint estinal Therapy Agents pantoprazol e 40 mg tablet,harjit yed release 03-16 00:00: 00 09-15 23:59 :00 No [id number] GERD 1 tablet EVERY AM 1 tablet EVERY AM (route: oral) Med Classific ation: Gastroint estinal Therapy Agents Tylenol 325 mg capsule 03-16 00:00: 00 09-15 23:59 :00 No [id number] PAIN 2 capsule EVERY 4 HOURS 2 capsule EVERY 4 HOURS (route: oral) Med Classific ation: Analgesic , Anti-infl ammatory or Antipyret ic Vitamin B-12 1,000 mcg tablet 03-16 00:00: 00 09-15 23:59 :00 No [id number] SUPPLEMENT 1 tablet DAILY 1 tablet DAILY (route: oral) Med Classific ation: Electroly te Balance-N utritiona l Products Vitamin D3 50 mcg (2,000 unit) capsule 7-13 00:00: 00 09-15 23:59 :00 No [id number] BONE HEALTH 1 mcg DAILY 1 mcg DAILY (route: oral) Med Classific ation: Electroly te Balance-N utritiona l Products celecoxib 200 mg capsule - 00:00: 00 05-13 23:59 :00 No [id number] NSAID 1 capsule 2 TIMES DAILY 1 capsule 2 TIMES DAILY (route: oral) Med Classific ation: Analgesic , Anti-infl ammatory or Antipyret ic Vitamin B-12 1,000 mcg tablet 2022-09 2-24 00:00: 00 09-20 00:00 :00 No [id number] Per instruc tions EVERY DAY Per instructio ns EVERY DAY (route: oral) Med Classific ation: Electroly te Balance-N [employer] Products cholecalcif angel (vitamin D3) 50 mcg (2,000 unit) tablet 2022-09 2- 00:00: 00 09-20 00:00 :00 No [id number] Per instruc tions EVERY DAY Per instructio ns EVERY DAY (route: oral) Med Classific ation: Electroly DonorPro Balance-N [employer] Acetaminoph en Extra Strength 500 mg tablet 09-20 00:00: 00 Yes [id number] PAIN / FEVER 2 tablet EVERY 8 HOURS 2 tablet EVERY 8 HOURS (route: oral) Med Classific ation: Analgesic , Anti-infl ammatory or Antipyret ic alprazolam 0.25 mg tablet 09-20 00:00: 00 Yes [id number] ANXIETY 1 tablet 3 TIMES DAILY 1 tablet 3 TIMES DAILY (route: oral) Med Classific ation: Central Nervous System Agents aspirin 81 mg tablet,harjit yed release 09-20 00:00: 00 Yes [id number] ANTIPLATELE T 1 tablet DAILY 1 tablet DAILY (route: oral) Med Classific ation: Hematolog ical Agents atorvastati n 80 mg tablet 09-20 00:00: 00 Yes [id number] ANTIHYPERLI PIDEMIC 1 tablet BEDTIME 1 tablet BEDTIME (route: oral) Med Classific ation: Cardiovas cular Therapy Agents B complex-vit vallejo C-folic acid ER 400 mcg tablet,exte nded release 09-20 00:00: 00 Yes [id number] VITAMIN SUPPLEMENT 1 tablet DAILY 1 tablet DAILY (route: oral) Med Classific ation: Electroly te Balance-N utritiona l Products citalopram 20 mg tablet 09-20 00:00: 00 Yes [id number] ANXIETY 1 tablet BEDTIME 1 tablet BEDTIME (route: oral) Med Classific ation: Central Nervous System Agents clopidogrel 75 mg tablet 09-20 00:00: 00 Yes [id number] ANTICOAGULA NT 1 tablet DAILY 1 tablet DAILY (route: oral) Med Classific ation: Hematolog ical Agents docusate sodium 100 mg capsule 09-20 00:00: 00 Yes [id number] CONSTIPATIO N 1 capsule 2 TIMES DAILY 1 capsule 2 TIMES DAILY (route: oral) Med Classific ation: Gastroint estinal Therapy Agents fluticasone propionate 50 mcg/actuati on nasal spray,suspe nsion 09-20 00:00: 00 Yes [id number] WHEEZING/AL LERGY 1 spray EVERY 12 HOURS 1 spray EVERY 12 HOURS (route: nasal) Med Classific ation: Respirato ry Therapy Agents omeprazole 20 mg delayed release,dis integrating tablet 09-20 00:00: 00 Yes [id number] GERD 1 tablet DAILY 1 tablet DAILY (route: oral) Med Classific ation: Gastroint estinal Therapy Agents dicyclomine 10 mg capsule 10-21 00:00: 00 Yes [id number] IRRITABLE BOWEL 1 capsule EVERY 6 HOURS 1 capsule EVERY 6 HOURS (route: oral) Med Classific ation: Gastroint estinal Therapy Agents Miralax 17 gram/dose oral powder - 00:00: 00 Yes [id number] DIVERTICULI TIS 17 gram DAILY 17 gram DAILY (route: oral) Med Classific ation: Gastroint estinal Therapy Agents famotidine 20 mg tablet 10-24 00:00: 00 Yes [id number] DIVERTICULI TIS 1 tablet DAILY 1 tablet [...] ON ADMISSION AND PRN FOR RN TO ASSESS/SENIOR JAVA PROGRAMMER TO OBSERVE PATIENT, WITH NOTIFICATION TO THE [...] ON ADMISSION AND PRN FOR RN TO ASSESS/SENIOR JAVA PROGRAMMER TO OBSERVE PATIENT, WITH NOTIFICATION TO THE [...] End Date/Time Encounter Type Admission Type Attending [facility] Department Encounter ID Discharge Date Discharge Status Discharge Condition Discharge Reason Percent Goals Met 2023-09-20 00:00:00 2023-11-17 00:00:00 Outpatient TERRENCE SABILLON [facility] [id number] 2023-11-17 00:00:00 DISCHARGE TO HOME OR SELF CARE INDEPENDEN T IN THE HOME HH OR PAL- GOALS MET 79.49
[2024-08-20 17:39] VITALS: BP 144/73; PULSE 92; RESP 18; TEMP 36.6; O2SAT 98; BMI 26.6
--- NOTE | 2024-08-20 17:42 | ED_ITS ---
HPI - General Adult General Chief complaint: General Medical Stated complaint: left hand wound/infection Time Seen by Provider: 08/20/24 19:17 Source: patient Limitations: no limitations History of Present Illness ED Provider: Mel Rabago PA-C HPI narrative: 83-year-old female with a history of anxiety, hypertension, aortic stenosis status post TAVR, COPD, prior CVA, arthritis frequent urinary tract infections, constipation, GERD, who presents with multiple complaints. Patient states her cat scratched her over a week ago, she has had a bruise, it is still present. Denies associated pain at the site, no redness, no swelling, no pus. Patient is inquiring why her nails are brittle and dry. Related Data Home Medications ?Medication ?Instructions ?Recorded ?Confirmed folic acid 400 mcg tablet 0.4 mg PO DAILY 11/23/23 08/12/24 alprazolam 0.25 mg tablet 0.25 mg PO BID 03/28/24 08/12/24 mirtazapine 7.5 mg tablet 15 mg PO BEDTIME 07/12/24 08/12/24 Previous Rx's ?Medication ?Instructions ?Recorded acetaminophen 325 mg capsule 325 mg PO Q4H PRN pain #30 caps 12/17/23 (Tylenol) estradiol 0.01% (0.1 mg/gram) See Rx Instructions vaginal 3XW 30 04/12/24 vaginal cream days #42.5 grams pantoprazole 40 mg tablet,delayed 40 mg PO DAILY #90 tabs 05/07/24 release (Protonix) sucralfate 1 gram tablet 1 g PO TID #90 tabs 05/07/24 clopidogrel 75 mg tablet 75 mg PO QAM #90 tabs 07/04/24 mirabegron 25 mg tablet,extended 25 mg PO DAILY 30 days #30 tabs 07/29/24 release 24 hr (Myrbetriq) cholecalciferol (vitamin D3) 50 50 mcg PO DAILY #30 tabs 08/10/24 mcg (2,000 unit) tablet (Vitamin D3) losartan 25 mg tablet 25 mg PO DAILY 90 days #90 tabs 08/19/24 Allergies Allergy/AdvReac Type Severity Reaction Status Date / Time buspirone Allergy Intermediate Rash Verified 08/20/24 17:42 Sulfa (Sulfonamide Allergy Intermediate RASH Verified 08/20/24 17:42 Antibiotics) cefuroxime Allergy Unknown Unknown Verified 08/20/24 17:42 garlic [GARLIC] Allergy Unknown PER H&P Verified 08/20/24 17:42 metronidazole [From FLAGYL] Allergy Unknown OCULAR Verified 08/20/24 17:42 MIGRAINES penicillamine Allergy Unknown Unknown Verified 08/20/24 17:42 ciprofloxacin AdvReac Intermediate neuropathic Verified 08/20/24 17:42 pain lisinopril AdvReac Intermediate Cough Verified 08/20/24 17:42 nitrofurantoin AdvReac Mild GI side Verified 08/20/24 17:42 effects cefuroxime Allergy Intermediate wheezy Uncoded 08/20/24 17:42 cough/itch flagyl Allergy Unknown Unknown Uncoded 08/20/24 17:42 From KEFLEX Allergy Unknown RASH Uncoded 08/20/24 17:42 Metoprolol Tartrate Allergy Unknown Unknown Uncoded 08/20/24 17:42 Sulfacet-R Allergy Unknown Unknown Uncoded 08/20/24 17:42 Review of Systems 2 Review of Systems: Yes all other systems are reviewed and are negative Constitutional: Constitutional: Denies fatigue and Denies fever(s) Cardiovascular: Cardiovascular: Denies chest pain and Denies dyspnea Respiratory: Respiratory: Denies dyspnea Musculoskeletal: Musculoskeletal: Denies arthralgias and Denies joint swelling Integumentary/Breasts: Skin/Breast: Denies erythema, Reports unusual bruising and Reports wounds Endocrine: Endocrine: Denies fatigue PMFSH Past Medical History Attestation statement: The following information was validated with the patient. Medical History (Updated 08/20/24 @ 20:48 by ROMAINE Dalal) Pulmonary nodule Chest pain URI (upper respiratory infection) HTN (hypertension) Cough Heart palpitations Constipation LLQ abdominal pain Anxiety Breast cancer screening Breast pain, left Elevated vitamin B12 level Neck muscle spasm Strain of neck muscle Low back pain Pubic ramus fracture Sore throat Skin tear of upper arm without complication Head injury, acute, without loss of consciousness Fall Dizziness Medication noncompliance due to cognitive impairment RLQ abdominal pain Sinusitis Flu syndrome Precordial chest pain Atypical chest pain Cold intolerance Former smoker Abnormal lung sounds Fever Bilateral calf pain Nausea Left lower quadrant abdominal pain Dysuria Fatigue Lower extremity weakness Aortic stenosis Obstipation Dark stools Lower abdominal pain Gastroenteritis Neck pain on right side Back pain Rhinitis Elevated BP without diagnosis of hypertension Non-rheumatic aortic stenosis Diverticulitis GERD (gastroesophageal reflux disease) Cat scratch Cat bite Epigastric discomfort Diarrhea Nausea Viral syndrome GERD (gastroesophageal reflux disease) Neuropathy Arthritis GERD (gastroesophageal reflux disease) HTN (hypertension) Irritable bowel Heart murmur Surgical History S/P TAVR (transcatheter aortic valve replacement) Hx of esophagogastroduodenoscopy Hx of colonoscopy History of tonsillectomy History of appendectomy Family History Family History Father No problems noted. Mother No problems noted. Social History Social History Household Members: Children Housing: House Are you a primary associate director career services to a significant other at home: No Do you presently have visiting nurse or other home services: No Alcohol intake: former Patient Tobacco Use Status: Former Tobacco user Tobacco use type: Cigarette e-Cigarette/Vaping Use: Never Used Second Hand Smoke Exposure: No Advance Directives: Yes Advance Directives on File: Yes Advance Directives Date on File: 09/21/23 Do you have a plan to hurt others: No Plan service: No Current occupational status: retired Cognitive needs: No Hearing needs: No Vision needs: Yes (glasses) Physical Exam ED Vital Signs: Vital Signs - 24 hr 08/20/24 17:39 08/20/24 19:33 Temperature 98 F 97.9 F Pulse Rate 92 95 Respiratory Rate 18 16 Blood Pressure 144/73 H 112/62 Pulse Oximetry 98 97 Oxygen Delivery Method Room Air Room Air BMI result Body Mass Index 26.6 Const Other: Alert, well-appearing Orientation/consciousness: patient oriented x3 Resp Other: Nonlabored respiration Cardio Other: Normal peripheral perfusion Skin Other: Warm dry no rash Neuro General: patient oriented x3, no focal motor deficits and CN's II-XI intact bilaterally Extrem Other: Ecchymosis noted over dorsum of left hand, there was no overlying erythema warmth, the areas nontender, she has full range of motion of all digits of the left hand Psych Other: Cooperative Course Course Course Narrative: RME, this is a rapid medical exam performed by Ty Wright please refer to primary provider for complete H&P- 83 year old female presents for evaluation of left hand pain. She reports she had a minor scratch from her cat a week ago and she was treated for it. Since yesterday she has had worsening bruising. She is on Plavix, recently discontinued Aspirin. Plan for x-rays and labs with coags Medical Decision Making Medical Decision Making MDM Narrative: I have independently reviewed the following tests: Labs: No leukocytosis, stable anemia, no electrolyte abnormality, X-ray left hand: XR/XR hand LT min 3V IMPRESSION: 1. 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 No visible acute fracture or dislocation seen. 2. Old healed distal radial fracture and nonhealed ulnar styloid fracture. These are stable compared to left 10 x-ray 09/17/2020 Electronically signed by: Jose Cantu MD 08/20/2024 07:41 PM [facility] Lab Data 08/20/24 18:30 08/20/24 18:30 Labs: Lab Results 08/20/24 Range/Units 18:30 WBC 3.3 L (4.8-10.8) X10*3/uL RBC 3.34 L (4.20-5.50) X10*6/uL Hgb 9.8 L (12.0-16.0) g/dl Hct 30.6 L (37.0-47.0) % MCV 91.6 (80.0-98.0) fL MCH 29.3 (27.0-33.0) pg MCHC 32.0 (31.0-35.0) g/dl RDW 14.6 (11.0-16.0) % Plt Count 106 L (160-400) X10*3/uL MPV 11.8 (9.4-12.3) fL Immature Gran % (Auto) 0.3 (0.0-0.4) % Neut % (Auto) 75.4 H (45-73) % Lymph % (Auto) 14.5 L (20-40) % Tyler % (Auto) 5.5 (2-11) % Eos % (Auto) 3.7 (0-4) % Baso % (Auto) 0.6 (0-2) % Lymph # (Auto) 0.5 L (1.2-4.9) X10*3/uL Tyler # (Auto) 0.2 (0.1-1.2) X10*3/uL Eos # (Auto) 0.1 (0.0-0.4) X10*3/uL Baso # (Auto) 0.0 (0.0-0.2) X10*3/uL Abs Immat Gran (auto) 0.01 (0.00-0.03) X10*3/uL Absolute Neuts (auto) 2.5 (2.0-8.3) x10*3/uL Absolute Nucleated RBC 0.000 (0.0-0.012) X10*3/uL Nucleated RBC % (auto) 0.0 (0.0-0.2) /100WBC PT 11.6 (10.9-12.4) SEC INR 1.0 (0.9-1.1) Sodium 138 (135-145) mmol/L Potassium 4.2 (3.3-5.1) mmol/L Chloride 102 (96-108) mmol/L Carbon Dioxide 31 H (22-29) mmol/L Anion Gap 9 L (12-20) BUN 30 H (9-16) mg/dL Creatinine 0.88 (0.5-1.4) mg/dL Estim Creat Clear Calc 50.1 Estimated GFR > 60 Random Glucose 117 H (60-115) mg/dL Calcium 9.7 (8.4-10.2) mg/dL Total Bilirubin 0.4 (0.0-1.0) mg/dL AST 26 (5-31) U/L ALT 20 (0-31) U/L Alkaline Phosphatase 107 (39-117) U/L Total Protein 7.2 (6.5-8.0) g/dL Albumin 4.2 (3.5-5.0) g/dL Discharge Plan Discharge Clinical Impression: Contusion of left hand Patient Disposition: Home, Self-Care Instructions: Contusion in Adults (ED) Additional Instructions: You have a contusion, or bruise of the hand, the bleeding under the skin we will resolve on its own. The x-ray of the hand revealed no acute injuries. You have no lab abnormalities, your serum magnesium was pending. Follow up with your primary care provider as needed. Prescriptions: No Action clopidogrel 75 mg tablet 75 mg PO QAM Qty: 90 0RF mirtazapine 7.5 mg tablet 15 mg PO BEDTIME mirabegron [Myrbetriq] 25 mg tablet extended release 24 hr 25 mg PO DAILY 30 Days Qty: 30 1RF cholecalciferol (vitamin D3) [Vitamin D3] 50 mcg (2,000 unit) tablet 50 mcg PO DAILY Qty: 30 3RF losartan 25 mg tablet 25 mg PO DAILY 90 Days Qty: 90 1RF folic acid 400 mcg Tablet 0.4 mg PO DAILY acetaminophen [Tylenol] 325 mg capsule 325 mg PO Q4H PRN (Reason: pain) Qty: 30 0RF alprazolam 0.25 mg Tablet 0.25 mg PO BID pantoprazole [Protonix] 40 mg tablet,delayed release (DR/EC) 40 mg PO DAILY Qty: 90 0RF sucralfate 1 gram tablet 1 g PO TID Qty: 90 0RF estradiol 0.01 % (0.1 mg/gram) cream See Rx Instructions vaginal 3XW 30 Days Qty: 42.5 1RF Rx Instructions: pea sized amount to urethra daily times 1 month then 3 times per week thereafter Print Language: Lithuanian
[2024-08-20 18:35] LABS: MANUAL DIFF FLAG NO
--- OUTSIDE RECORDS SUMMARY | 2024-08-20 18:40 | XMS_ITS | Clinical Summary ---
Author Organization Unknown Care Team Providers Care Clinical Material Handler Name Role Phone KASSIDY PA, WESLEY Unavailable Unavailable ERIK PT, GUERA Unavailable Unavailable SPAFFORD OT, GATITO Unavailable Unavailable JUAN ANTONIO RUTHANN/QUINTEROS, RAINER Unavailable Unavail able [facility], MAXWELL Unavailable Unavailable ALCIRA REFRIGERATION MECHANIC HELPER, JOEL Unavailable Unavailable BROCK DIRECTOR INVESTOR RELATIONS, ALIE Unavailable Unavaildarline LYLES RN, TERRENCE Unavailable Unavailable LORA DIRECTOR INVESTOR RELATIONS, ABHILASH Unavailable Unavailable Payers Payer Name Policy Type Policy Number Effective Date Expira tion Date MEDICARE.NGS.PDGM [id number] Problems Condition Name Condition Details Condition Category [...] WITHOUT ESOPHAGITIS Active 09-20 00:00: 00 OTHER [facility] (CURRENT) DRUG THERAPY Active 09-20 00:00: 00 [facility] (CURRENT) USE OF ANTITHROMBOT ICS/ANTIPLAT ELETS Active [...] 02-20 00:00: 00 09-15 23:59 :00 No [id number] MOOD 1 tablet BEDTIME 1 tablet BEDTIME (route: oral) Med Classific ation: Central Nervous System Agents albuterol sulfate HFA 90 mcg/actuati on aerosol inhaler 03-16 00:00: 00 09-15 23:59 :00 No [id number] SOB 1 puff 4 TIMES DAILY 1 puff 4 TIMES DAILY (route: inhalation ) Med Classific ation: Respirato ry Therapy Agents [place] Allergy 180 mg tablet 03-16 00:00: 00 09-15 23:59 :00 No [id number] ALLERGY 1 tablet DAILY 1 tablet DAILY (route: oral) Med Classific ation: Respirato ry Therapy Agents alprazolam 0.25 mg tablet 03-16 00:00: 00 09-15 23:59 :00 No [id number] ANXIETY 1 tablet 2 TIMES DAILY 1 tablet 2 TIMES DAILY (route: oral) Med Classific ation: Central Nervous System Agents docusate sodium 100 mg capsule 03-16 00:00: 00 09-15 23:59 :00 No [id number] CONSTIPATIO N 1 capsule 2 TIMES DAILY 1 capsule 2 TIMES DAILY (route: oral) Med Classific ation: Gastroint estinal Therapy Agents fluticasone propionate 50 mcg/actuati on nasal spray,suspe nsion 03-16 00:00: 00 09-15 23:59 :00 No [id number] ALLERGY 2 spray DAILY 2 spray DAILY (route: nasal) Med Classific ation: Respirato ry Therapy Agents losartan 25 mg tablet 03-16 00:00: 00 09-15 23:59 :00 No [id number] HTN 1 tablet DAILY 1 tablet DAILY (route: oral) Med Classific ation: Cardiovas cular Therapy Agents melatonin 3 mg capsule 03-16 00:00: 00 09-15 23:59 :00 No [id number] SLEEP 1 capsule BEDTIME 1 capsule BEDTIME (route: oral) Med Classific ation: Central Nervous System Agents Miralax 17 gram oral powder packet 03-16 00:00: 00 09-15 23:59 :00 No [id number] CONSTIPATIO N 1 packet DAILY 1 packet DAILY (route: oral) Med Classific ation: Gastroint estinal Therapy Agents pantoprazol e 40 mg tablet,harjit yed release 03-16 00:00: 00 09-15 23:59 :00 No [id number] GERD 1 tablet EVERY AM 1 tablet EVERY AM (route: oral) Med Classific ation: Gastroint estinal Therapy Agents Tylenol 325 mg capsule 03-16 00:00: 00 09-15 23:59 :00 No [id number] PAIN 2 capsule EVERY 4 HOURS 2 capsule EVERY 4 HOURS (route: oral) Med Classific ation: Analgesic , Anti-infl ammatory or Antipyret ic Vitamin B-12 1,000 mcg tablet 03-16 00:00: 00 09-15 23:59 :00 No [id number] SUPPLEMENT 1 tablet DAILY 1 tablet DAILY (route: oral) Med Classific ation: Electroly te Balance-N utritiona l Products Vitamin D3 50 mcg (2,000 unit) capsule 7-13 00:00: 00 09-15 23:59 :00 No [id number] BONE HEALTH 1 mcg DAILY 1 mcg DAILY (route: oral) Med Classific ation: Electroly te Balance-N utritiona l Products celecoxib 200 mg capsule - 00:00: 00 05-13 23:59 :00 No [id number] NSAID 1 capsule 2 TIMES DAILY 1 capsule 2 TIMES DAILY (route: oral) Med Classific ation: Analgesic , Anti-infl ammatory or Antipyret ic Vitamin B-12 1,000 mcg tablet 2022-09 2-24 00:00: 00 09-20 00:00 :00 No [id number] Per instruc tions EVERY DAY Per instructio ns EVERY DAY (route: oral) Med Classific ation: Electroly te Balance-N [employer] Products cholecalcif angel (vitamin D3) 50 mcg (2,000 unit) tablet 2022-09 2- 00:00: 00 09-20 00:00 :00 No [id number] Per instruc tions EVERY DAY Per instructio ns EVERY DAY (route: oral) Med Classific ation: Electroly Openplay Balance-N [employer] Products Acetaminoph en Extra Strength 500 mg tablet 09-20 00:00: 00 Yes [id number] PAIN / FEVER 2 tablet EVERY 8 HOURS 2 tablet EVERY 8 HOURS (route: oral) Med Classific ation: Analgesic , Anti-infl ammatory or Antipyret ic alprazolam 0.25 mg tablet 09-20 00:00: 00 Yes [id number] ANXIETY 1 tablet 3 TIMES DAILY 1 tablet 3 TIMES DAILY (route: oral) Med Classific ation: Central Nervous System Agents aspirin 81 mg tablet,harjit yed release 09-20 00:00: 00 Yes [id number] ANTIPLATELE T 1 tablet DAILY 1 tablet DAILY (route: oral) Med Classific ation: Hematolog ical Agents atorvastati n 80 mg tablet 09-20 00:00: 00 Yes [id number] ANTIHYPERLI PIDEMIC 1 tablet BEDTIME 1 tablet BEDTIME (route: oral) Med Classific ation: Cardiovas cular Therapy Agents B complex-vit vallejo C-folic acid ER 400 mcg tablet,exte nded release 09-20 00:00: 00 Yes [id number] VITAMIN SUPPLEMENT 1 tablet DAILY 1 tablet DAILY (route: oral) Med Classific ation: Electroly te Balance-N utritiona l Products citalopram 20 mg tablet 09-20 00:00: 00 Yes [id number] ANXIETY 1 tablet BEDTIME 1 tablet BEDTIME (route: oral) Med Classific ation: Central Nervous System Agents clopidogrel 75 mg tablet 09-20 00:00: 00 Yes [id number] ANTICOAGULA NT 1 tablet DAILY 1 tablet DAILY (route: oral) Med Classific ation: Hematolog ical Agents docusate sodium 100 mg capsule 09-20 00:00: 00 Yes [id number] CONSTIPATIO N 1 capsule 2 TIMES DAILY 1 capsule 2 TIMES DAILY (route: oral) Med Classific ation: Gastroint estinal Therapy Agents fluticasone propionate 50 mcg/actuati on nasal spray,suspe nsion 09-20 00:00: 00 Yes [id number] WHEEZING/AL LERGY 1 spray EVERY 12 HOURS 1 spray EVERY 12 HOURS (route: nasal) Med Classific ation: Respirato ry Therapy Agents omeprazole 20 mg delayed release,dis integrating tablet 09-20 00:00: 00 Yes [id number] GERD 1 tablet DAILY 1 tablet DAILY (route: oral) Med Classific ation: Gastroint estinal Therapy Agents dicyclomine 10 mg capsule 10-21 00:00: 00 Yes [id number] IRRITABLE BOWEL 1 capsule EVERY 6 HOURS 1 capsule EVERY 6 HOURS (route: oral) Med Classific ation: Gastroint estinal Therapy Agents Miralax 17 gram/dose oral powder - 00:00: 00 Yes [id number] DIVERTICULI TIS 17 gram DAILY 17 gram DAILY (route: oral) Med Classific ation: Gastroint estinal Therapy Agents famotidine 20 mg tablet 10-24 00:00: 00 Yes [id number] DIVERTICULI TIS 1 tablet DAILY 1 tablet [...] ON ADMISSION AND PRN FOR RN TO ASSESS/DIRECTOR INVESTOR RELATIONS TO OBSERVE PATIENT, WITH NOTIFICATION TO THE [...] ON ADMISSION AND PRN FOR RN TO ASSESS/DIRECTOR INVESTOR RELATIONS TO OBSERVE PATIENT, WITH NOTIFICATION TO THE [...] End Date/Time Encounter Type Admission Type Attending [facility] Department Encounter ID Discharge Date Discharge Status Discharge Condition Discharge Reason Percent Goals Met 2023-09-20 00:00:00 2023-11-17 00:00:00 Outpatient TERRENCE SABILLON [facility] [id number] 2023-11-17 00:00:00 DISCHARGE TO HOME OR SELF CARE INDEPENDEN T IN THE HOME HH OR PAL- GOALS MET 79.49
--- OUTSIDE RECORDS SUMMARY | 2024-08-20 18:40 | XMS_ITS | Clinical Summary ---
Author Organization Unknown Care Team Providers Care Commissary Superintendent Name Role Phone KASSIDY PA, WESLEY Unavailable Unavailable ERIK PT, GUERA Unavailable Unavailable SPAFFORD OT, GATITO Unavailable Unavailable JUAN ANTONIO RUTHANN/QUINTEROS, RAINER Unavailable Unavail able [facility], MAXWELL Unavailable Unavailable ALCIRA PILE DRIVER, JOEL Unavailable Unavailable BROCK BUSINESS DEVELOPMENT ANALYST, ALIE Unavailable Unavaildarline LYLES RN, TERRENCE Unavailable Unavailable LORA BUSINESS DEVELOPMENT ANALYST, ABHILASH Unavailable Unavailable Payers Payer Name Policy Type Policy Number Effective Date Expira tion Date MEDICARE.NGS.PDGM [id number] Problems Condition Name Condition Details Condition Category [...] WITHOUT ESOPHAGITIS Active 09-20 00:00: 00 OTHER [facility] (CURRENT) DRUG THERAPY Active 09-20 00:00: 00 [facility] (CURRENT) USE OF ANTITHROMBOT ICS/ANTIPLAT ELETS Active [...] 02-20 00:00: 00 09-15 23:59 :00 No [id number] MOOD 1 tablet BEDTIME 1 tablet BEDTIME (route: oral) Med Classific ation: Central Nervous System Agents albuterol sulfate HFA 90 mcg/actuati on aerosol inhaler 03-16 00:00: 00 09-15 23:59 :00 No [id number] SOB 1 puff 4 TIMES DAILY 1 puff 4 TIMES DAILY (route: inhalation ) Med Classific ation: Respirato ry Therapy Agents [place] Allergy 180 mg tablet 03-16 00:00: 00 09-15 23:59 :00 No [id number] ALLERGY 1 tablet DAILY 1 tablet DAILY (route: oral) Med Classific ation: Respirato ry Therapy Agents alprazolam 0.25 mg tablet 03-16 00:00: 00 09-15 23:59 :00 No [id number] ANXIETY 1 tablet 2 TIMES DAILY 1 tablet 2 TIMES DAILY (route: oral) Med Classific ation: Central Nervous System Agents docusate sodium 100 mg capsule 03-16 00:00: 00 09-15 23:59 :00 No [id number] CONSTIPATIO N 1 capsule 2 TIMES DAILY 1 capsule 2 TIMES DAILY (route: oral) Med Classific ation: Gastroint estinal Therapy Agents fluticasone propionate 50 mcg/actuati on nasal spray,suspe nsion 03-16 00:00: 00 09-15 23:59 :00 No [id number] ALLERGY 2 spray DAILY 2 spray DAILY (route: nasal) Med Classific ation: Respirato ry Therapy Agents losartan 25 mg tablet 03-16 00:00: 00 09-15 23:59 :00 No [id number] HTN 1 tablet DAILY 1 tablet DAILY (route: oral) Med Classific ation: Cardiovas cular Therapy Agents melatonin 3 mg capsule 03-16 00:00: 00 09-15 23:59 :00 No [id number] SLEEP 1 capsule BEDTIME 1 capsule BEDTIME (route: oral) Med Classific ation: Central Nervous System Agents Miralax 17 gram oral powder packet 03-16 00:00: 00 09-15 23:59 :00 No [id number] CONSTIPATIO N 1 packet DAILY 1 packet DAILY (route: oral) Med Classific ation: Gastroint estinal Therapy Agents pantoprazol e 40 mg tablet,harjit yed release 03-16 00:00: 00 09-15 23:59 :00 No [id number] GERD 1 tablet EVERY AM 1 tablet EVERY AM (route: oral) Med Classific ation: Gastroint estinal Therapy Agents Tylenol 325 mg capsule 03-16 00:00: 00 09-15 23:59 :00 No [id number] PAIN 2 capsule EVERY 4 HOURS 2 capsule EVERY 4 HOURS (route: oral) Med Classific ation: Analgesic , Anti-infl ammatory or Antipyret ic Vitamin B-12 1,000 mcg tablet 03-16 00:00: 00 09-15 23:59 :00 No [id number] SUPPLEMENT 1 tablet DAILY 1 tablet DAILY (route: oral) Med Classific ation: Electroly te Balance-N utritiona l Products Vitamin D3 50 mcg (2,000 unit) capsule 7-13 00:00: 00 09-15 23:59 :00 No [id number] BONE HEALTH 1 mcg DAILY 1 mcg DAILY (route: oral) Med Classific ation: Electroly te Balance-N utritiona l Products celecoxib 200 mg capsule - 00:00: 00 05-13 23:59 :00 No [id number] NSAID 1 capsule 2 TIMES DAILY 1 capsule 2 TIMES DAILY (route: oral) Med Classific ation: Analgesic , Anti-infl ammatory or Antipyret ic Vitamin B-12 1,000 mcg tablet 2022-09 2-24 00:00: 00 09-20 00:00 :00 No [id number] Per instruc tions EVERY DAY Per instructio ns EVERY DAY (route: oral) Med Classific ation: Electroly te Balance-N [employer] Products cholecalcif angel (vitamin D3) 50 mcg (2,000 unit) tablet 2022-09 2- 00:00: 00 09-20 00:00 :00 No [id number] Per instruc tions EVERY DAY Per instructio ns EVERY DAY (route: oral) Med Classific ation: Electroly Preventsys Balance-N [employer]a [employer] Products Acetaminoph en Extra Strength 500 mg tablet 09-20 00:00: 00 Yes [id number] PAIN / FEVER 2 tablet EVERY 8 HOURS 2 tablet EVERY 8 HOURS (route: oral) Med Classific ation: Analgesic , Anti-infl ammatory or Antipyret ic alprazolam 0.25 mg tablet 09-20 00:00: 00 Yes [id number] ANXIETY 1 tablet 3 TIMES DAILY 1 tablet 3 TIMES DAILY (route: oral) Med Classific ation: Central Nervous System Agents aspirin 81 mg tablet,harjit yed release 09-20 00:00: 00 Yes [id number] ANTIPLATELE T 1 tablet DAILY 1 tablet DAILY (route: oral) Med Classific ation: Hematolog ical Agents atorvastati n 80 mg tablet 09-20 00:00: 00 Yes [id number] ANTIHYPERLI PIDEMIC 1 tablet BEDTIME 1 tablet BEDTIME (route: oral) Med Classific ation: Cardiovas cular Therapy Agents B complex-vit vallejo C-folic acid ER 400 mcg tablet,exte nded release 09-20 00:00: 00 Yes [id number] VITAMIN SUPPLEMENT 1 tablet DAILY 1 tablet DAILY (route: oral) Med Classific ation: Electroly te Balance-N utritiona l Products citalopram 20 mg tablet 09-20 00:00: 00 Yes [id number] ANXIETY 1 tablet BEDTIME 1 tablet BEDTIME (route: oral) Med Classific ation: Central Nervous System Agents clopidogrel 75 mg tablet 09-20 00:00: 00 Yes [id number] ANTICOAGULA NT 1 tablet DAILY 1 tablet DAILY (route: oral) Med Classific ation: Hematolog ical Agents docusate sodium 100 mg capsule 09-20 00:00: 00 Yes [id number] CONSTIPATIO N 1 capsule 2 TIMES DAILY 1 capsule 2 TIMES DAILY (route: oral) Med Classific ation: Gastroint estinal Therapy Agents fluticasone propionate 50 mcg/actuati on nasal spray,suspe nsion 09-20 00:00: 00 Yes [id number] WHEEZING/AL LERGY 1 spray EVERY 12 HOURS 1 spray EVERY 12 HOURS (route: nasal) Med Classific ation: Respirato ry Therapy Agents omeprazole 20 mg delayed release,dis integrating tablet 09-20 00:00: 00 Yes [id number] GERD 1 tablet DAILY 1 tablet DAILY (route: oral) Med Classific ation: Gastroint estinal Therapy Agents dicyclomine 10 mg capsule 10-21 00:00: 00 Yes [id number] IRRITABLE BOWEL 1 capsule EVERY 6 HOURS 1 capsule EVERY 6 HOURS (route: oral) Med Classific ation: Gastroint estinal Therapy Agents Miralax 17 gram/dose oral powder - 00:00: 00 Yes [id number] DIVERTICULI TIS 17 gram DAILY 17 gram DAILY (route: oral) Med Classific ation: Gastroint estinal Therapy Agents famotidine 20 mg tablet 10-24 00:00: 00 Yes [id number] DIVERTICULI TIS 1 tablet DAILY 1 tablet [...] ON ADMISSION AND PRN FOR RN TO ASSESS/BUSINESS DEVELOPMENT ANALYST TO OBSERVE PATIENT, WITH NOTIFICATION TO THE [...] ON ADMISSION AND PRN FOR RN TO ASSESS/BUSINESS DEVELOPMENT ANALYST TO OBSERVE PATIENT, WITH NOTIFICATION TO THE [...] End Date/Time Encounter Type Admission Type Attending [facility] Department Encounter ID Discharge Date Discharge Status Discharge Condition Discharge Reason Percent Goals Met 2023-09-20 00:00:00 2023-11-17 00:00:00 Outpatient TERRENCE SABILLON [facility] [id number] 2023-11-17 00:00:00 DISCHARGE TO HOME OR SELF CARE INDEPENDEN T IN THE HOME HH OR PAL- GOALS MET 79.49
[2024-08-20 18:47] LABS: Prothrombin Time 11.6 SEC (10.9-12.4)
[2024-08-20 18:50] LABS: Basophils Percent Auto 0.6 % (0-2); Hematocrit 30.6 % (37.0-47.0); Imm Gran Abs Auto 0.01 X10*3/uL (0.00-0.03); Imm Gran Pct Auto 0.3 % (0.0-0.4); PLT CLUMP 1; Red Cell Distribution Width 14.6 % (11.0-16.0); SCAN SMEAR FLAG 1
[2024-08-20 18:52] LABS: Eosinophils Absolute Auto 0.1 X10*3/uL (0.0-0.4); Eosinophils Percent Auto 3.7 % (0-4); Hemoglobin 9.8 g/dl (12.0-16.0); Lymphocytes Absolute Auto 0.5 X10*3/uL (1.2-4.9); Lymphocytes Percent Auto 14.5 % (20-40); Mean Corpuscular Hemoglobin 29.3 pg (27.0-33.0); Mean Corpuscular Volume 91.6 fL (80.0-98.0); Mean Platelet Volume 11.8 fL (9.4-12.3); Monocytes Absolute Auto 0.2 X10*3/uL (0.1-1.2); Monocytes Percent Auto 5.5 % (2-11); Neutrophils Absolute Auto 2.5 x10*3/uL (2.0-8.3); Neutrophils Percent Auto 75.4 % (45-73); Red Blood Count 3.34 X10*6/uL (4.20-5.50)
[2024-08-20 18:54] LABS: Platelet Count 106 X10*3/uL (160-400); White Blood Count 3.3 X10*3/uL (4.8-10.8)
[2024-08-20 18:56] LABS: Alanine Aminotransferase 20 U/L (0-31); Albumin Level 4.2 g/dL (3.5-5.0); Alkaline Phosphatase 107 U/L (39-117); Anion Gap 9 (12-20); Aspartate Amino Transferase 26 U/L (5-31); Bilirubin Total 0.4 mg/dL (0.0-1.0); Blood Urea Nitrogen 30 mg/dL (9-16); Calcium 9.7 mg/dL (8.4-10.2); Carbon Dioxide 31 mmol/L (22-29); Chloride 102 mmol/L (96-108); Creatinine Clr Calc Pharmacy 50.1; Estimated Glomerular Filt Rate > 60; Glucose Random 117 mg/dL (60-115); Potassium 4.2 mmol/L (3.3-5.1); Sodium 138 mmol/L (135-145); Total Protein 7.2 g/dL (6.5-8.0)
[2024-08-20 19:33] VITALS: BP 112/62; PULSE 95; RESP 16; TEMP 36.6; O2SAT 97
[2024-08-20 20:57] VITALS: BP 112/62; PULSE 95; RESP 16; TEMP 36.6; O2SAT 97
[2024-08-20 21:24] LABS: Magnesium 1.8 mg/dL (1.6-2.6)
== END 2024-08-20 20:58 | disposition home or self-care (01) ==
PROVIDERS: Physician Assistant; Physician Assistant Medical; Emergency Provider Emergency Medicine Emergency Medical Services; PCP Internal Medicine
DX: S60.222A Contusion of left hand, initial encounter (principal); M79.642 Pain in left hand; W55.03XA Scratched by cat, initial encounter; Y93.89 Activity, other specified; Y92.89 Other specified places as the place of occurrence of the external cause; Y99.8 Other external cause status; Z79.899 Other long term (current) drug therapy; Z87.891 Personal history of nicotine dependence; Z79.01 Long term (current) use of anticoagulants
CPT/HCPCS: 36415; 73130; 80053; 83735; 85025; 85610; 99283

== ENCOUNTER 2024-08-23 13:46 | Outpatient (AMB) | payer MEDICARE, OTHER, SELFPAY ==
--- NOTE | 2024-08-23 10:56 | MHC.OFFVIS ---
Vital Signs 08/23/24 13:48 Height 5 ft 6 in Weight 173 lb 8 oz BMI 28.0 BP 110/70 Blood Pressure Location Rt brachial Position Sitting Pulse 95 Pulse Source Pulse Oximeter Pulse Oximetry (%) 96 Oxygen Delivery Method Room Air Intake Visit Reasons: Abnormal CXR/Pulmonary Nodule Allergies buspirone Allergy (Intermediate, Verified 08/23/24 13:52) Rash Sulfa (Sulfonamide Antibiotics) Allergy (Intermediate, Verified 08/23/24 13:52) RASH cefuroxime Allergy (Unknown, Verified 08/23/24 13:52) Unknown garlic [GARLIC] Allergy (Unknown, Verified 08/23/24 13:52) PER H&P metronidazole [From FLAGYL] Allergy (Unknown, Verified 08/23/24 13:52) OCULAR MIGRAINES penicillamine Allergy (Unknown, Verified 08/23/24 13:52) Unknown ciprofloxacin Adverse Reaction (Intermediate, Verified 08/23/24 13:52) neuropathic pain lisinopril Adverse Reaction (Intermediate, Verified 08/23/24 13:52) Cough nitrofurantoin Adverse Reaction (Mild, Verified 08/23/24 13:52) GI side effects cefuroxime Allergy (Intermediate, Uncoded 08/23/24 13:52) wheezy cough/itch flagyl Allergy (Unknown, Uncoded 08/23/24 13:52) Unknown From KEFLEX Allergy (Unknown, Uncoded 08/23/24 13:52) RASH Metoprolol Tartrate Allergy (Unknown, Uncoded 08/23/24 13:52) Unknown Sulfacet-R Allergy (Unknown, Uncoded 08/23/24 13:52) Unknown HPI HPI Abnormal CXR/Pulmonary Nodule: Details: Bella is a pleasant 83-year-old female, former smoker, quit 15+ years ago with 50 pyh with underlying COPD, HTN, aortic valve replacement, severe generalized anxiety disorder, anemia and GERD. Today she is accompanied by son. She was referred by PCP for pulmonary evaluation after CXR which revealed JAYSHREE nodule that has become more pronounced, ultimately having chest CT 08/19. There were multiple scattered pulmonary nodules, <5mm, and noted apical scarring however has some ggo on the JAYSHREE as well as chronic interstitial changes. She denies prior abnormal chest CT. She reports occasional dry cough and dyspnea on moderate exertion. Denies wheezing or chest tightness She denies any occupational exposures. . She denies h/o asthma. She denies any pertinent family history. [facility]LY [facility] Medical History (Updated 08/21/24 @ 00:01 by Delvin Hernandez) Pulmonary nodule Chest pain URI (upper respiratory infection) HTN (hypertension) Cough Heart palpitations Constipation LLQ abdominal pain Anxiety Breast cancer screening Breast pain, left Elevated vitamin B12 level Neck muscle spasm Strain of neck muscle Low back pain Pubic ramus fracture Sore throat Skin tear of upper arm without complication Head injury, acute, without loss of consciousness Fall Dizziness Medication noncompliance due to cognitive impairment RLQ abdominal pain Sinusitis Flu syndrome Precordial chest pain Atypical chest pain Cold intolerance Former smoker Abnormal lung sounds Fever Bilateral calf pain Nausea Left lower quadrant abdominal pain Dysuria Fatigue Lower extremity weakness Aortic stenosis Obstipation Dark stools Lower abdominal pain Gastroenteritis Neck pain on right side Back pain Rhinitis Elevated BP without diagnosis of hypertension Non-rheumatic aortic stenosis Diverticulitis GERD (gastroesophageal reflux disease) Cat scratch Cat bite Epigastric discomfort Diarrhea Nausea Viral syndrome GERD (gastroesophageal reflux disease) Neuropathy Arthritis GERD (gastroesophageal reflux disease) HTN (hypertension) Irritable bowel Heart murmur Surgical History S/P TAVR (transcatheter aortic valve replacement) Hx of esophagogastroduodenoscopy Hx of colonoscopy History of tonsillectomy History of appendectomy Family History Father No problems noted. Mother No problems noted. Social History Household Members: Children Housing: House Are you a primary life care planner to a significant other at home: No Do you presently have visiting nurse or other home services: No Alcohol intake: former Patient Tobacco Use Status: Former Tobacco user Tobacco use type: Cigarette e-Cigarette/Vaping Use: Never Used Second Hand Smoke Exposure: No Advance Directives Date on File: 09/21/23 service: No Current occupational status: retired Cognitive needs: No Hearing needs: No Vision needs: Yes (glasses) Review of Systems Const Denies chills, Denies excessive sweating, Denies fever(s), Denies headache(s) and Denies night sweats Eyes Denies dry eyes, Denies irritation and Denies itchy eyes ENT Reports Normal hearing present, Denies headache(s), Denies nasal congestion, Denies nasal discharge, Denies post nasal drip and Denies sore throat Card Denies chest pain, Denies chest pain at rest, Denies chest pain with activity, Denies claudication, Denies leg edema, Reports dyspnea on exertion, Denies orthopnea and Denies paroxysmal nocturnal dyspnea Resp Denies chest congestion, Reports cough, Denies excessive phlegm production, Denies pain on inspiration, Denies pain with cough, Reports dyspnea on exertion, Denies stridor and Denies wheezing Musc Denies myalgias Neuro Reports Normal hearing present and Denies headache(s) Endo Denies excessive sweating Pradip/Lymph Denies lymphadenopathy Aller/Immun Denies itchy eyes, Denies seasonal rhinorrhea and Denies wheezing Physical Exam Vital Signs: Last Vital Signs Pulse 95 08/23/24 13:48 BP 110/70 08/23/24 13:48 Pulse Ox 96 08/23/24 13:48 Oxygen Delivery Method Room Air 08/23/24 13:48 BMI result Body Mass Index 28.0 Const General: cooperative, healthy appearing, comfortable, no acute distress, well developed and alert Orientation/consciousness: patient oriented x3 Limitations: no limitations HEENT Head: Yes normal to inspection, Yes normocephalic and Yes atraumatic Ears: hearing grossly normal bilaterally and external ears normal Eyes General: appearance normal, both eyes and all related structures Eyelids: Yes eyelids normal Sclerae: sclerae normal EOM: EOMs intact bilaterally Neck Neck: Yes normal visual inspection and Yes no lymphadenopathy Lymphatic: no lymphadenopathy noted Chest Chest palpation & inspection: normal inspection of the chest Resp Effort & Inspection: normal respiratory effort, able to speak in complete sentences, no audible wheezes, no cough, no stridor, not tachypneic, no tripod positioning and no use of accessory muscles Auscultation: clear to auscultation bilaterally Cardio Jugular venous distension: no JVD Rate: regular rate Rhythm: regular rhythm Skin Other: warm, dry General skin exam: no rashes or lesions noted Neuro General: patient oriented x3 Cranial nerves: Yes Normal hearing present Cognition (Neuro): normal cognition Gait exam (Neuro): Normal gait present Extrem General: Yes normal to inspection, Yes capillary refill normal, Yes no clubbing, cyanosis or edema and Yes no pedal edema Psych Appearance: grossly normal and well kempt Speech and movement: Normal speech and movement present and Clear speech present Affect: normal affect Attitude: cooperative Thought process: Normal thought process present Thought content: Normal thought content present Insight: Good insight present (Psych) Judgement: Good judgement present (Psych) Results Reviewed Results Reviewed: [address] [address] [address] Scan Report Signed Patient: Bella Henley MR#: [id number] : 1940 Acct:[id number] Age/Sex: 83 / F ADM Date: 08/19/24 Loc: HO.CT Attending Dr: Angelina Razo PA-C Ordering Physician: Angleina Razo PA-C Date of Service: 08/19/24 Procedure(s): CT chest wo IV con Accession Number(s): [id number] cc: Angelina Razo PA-C; Huma Garcia MD~ CLINICAL HISTORY: R91.1 - Solitary pulmonary nodule DLP: 136mgycm CT chest without contrast Comparison: CT/SR - CT CHEST W IV CON - 06/14/22 14:30 EDT Findings: Aortic valve replacement noted. Moderate atherosclerotic disease of the coronary arteries. The thyroid gland appears stable. No pericardial effusion or significant mediastinal adenopathy. Stable 4-5 mm right middle lobe nodule, sagittal 73. Few scattered stable 2 mm nodules. No new or increasing nodule. Mild centrilobular emphysema of the lung apices. Scattered pleural parenchymal scarring most pronounced at the lung apices. Subpleural reticular markings at the lung bases, stable. The visualized upper abdomen demonstrates no acute process. Hepatic cyst noted. Nonobstructing left renal calculus. Impression: Stable pulmonary nodules. These can be considered benign given long-term follow-up. Chronic interstitial changes. This document has been electronically signed by: Nhan Kelly MD on 08/19/2024 12:34:11 Dictated By: Nhan Kelly MD Signed By: <Electronically signed by Nhan Kelly MD in OV> 08/22/24 1441 DD/ 1234 TD/TT: 08/19/24 1234 Veterinary Laboratory Technician: Assessment & Plan Assessment & Plan (1) Pulmonary nodule: Code(s): R91.1 - Solitary pulmonary nodule Category: Medical (2) COPD (chronic obstructive pulmonary disease): Code(s): J44.9 - Chronic obstructive pulmonary disease, unspecified Category: Medical Plan Will repeat chest CT in 6 months to assess stability of nodules as well as ggo of JAYSHREE, likely apical scarring. Prior PFT 2009 revealed moderate to severe obstructive defect. Will trial Advair. Discussed importance of good oral hygiene to prevent thrush. All questions were answered and patient is in agreement of plan. Will follow up in 6-8 weeks or sooner if needed. Orders: Orders CT chest wo IV con 6 Months R91.1 - Solitary pulmonary nodule Medications: New fluticasone propion-salmeterol 115-21 mcg/actuation (Advair HFA) 2 puffs inhalation Q12H 12 grams 3RF Coding Level of Care Code New Pt Level 4 (20125) Diagnoses Pulmonary nodule R91.1 COPD (chronic obstructive pulmonary disease) J44.9
[2024-08-23 13:48] VITALS: BP 110/70; PULSE 95; O2SAT 96; BMI 28.0
--- OUTSIDE RECORDS SUMMARY | 2024-08-23 13:48 | XMS_ITS | Clinical Summary ---
Author Organization Unknown Care Team Providers Care Car Repairer Name Role Phone KASSIDY PA, WESLEY Unavailable Unavailable ERIK PT, GUERA Unavailable Unavailable SPAFFORD OT, GATITO Unavailable Unavailable JUAN ANTONIO RUTHANN/QUINTEROS, RAINER Unavailable Unavail able [facility], MAXWELL Unavailable Unavailable ALCIRA SYSTEM ANALYST, JOEL Unavailable Unavailable BROCK RESEARCH MANAGER, ALIE Unavailable Unavaildarline LYLES RN, TERRENCE Unavailable Unavailable LORA RESEARCH MANAGER, ABHILASH Unavailable Unavailable Payers Payer Name Policy Type Policy Number Effective Date Expira tion Date MEDICARE.NGS.PDGM [id number] Problems Condition Name Condition Details Condition Category [...] WITHOUT ESOPHAGITIS Active 09-20 00:00: 00 OTHER GIS GEOGRAPHER (CURRENT) DRUG THERAPY Active 09-20 00:00: 00 HALF-WAY (CURRENT) USE OF ANTITHROMBOT ICS/ANTIPLAT ELETS Active [...] 02-20 00:00: 00 09-15 23:59 :00 No [id number] MOOD 1 tablet BEDTIME 1 tablet BEDTIME (route: oral) Med Classific ation: Central Nervous System Agents albuterol sulfate HFA 90 mcg/actuati on aerosol inhaler 03-16 00:00: 00 09-15 23:59 :00 No [id number] SOB 1 puff 4 TIMES DAILY 1 puff 4 TIMES DAILY (route: inhalation ) Med Classific ation: Respirato ry Therapy Agents Laurel Allergy 180 mg tablet 03-16 00:00: 00 09-15 23:59 :00 No [id number] ALLERGY 1 tablet DAILY 1 tablet DAILY (route: oral) Med Classific ation: Respirato ry Therapy Agents alprazolam 0.25 mg tablet 03-16 00:00: 00 09-15 23:59 :00 No [id number] ANXIETY 1 tablet 2 TIMES DAILY 1 tablet 2 TIMES DAILY (route: oral) Med Classific ation: Central Nervous System Agents docusate sodium 100 mg capsule 03-16 00:00: 00 09-15 23:59 :00 No [id number] CONSTIPATIO N 1 capsule 2 TIMES DAILY 1 capsule 2 TIMES DAILY (route: oral) Med Classific ation: Gastroint estinal Therapy Agents fluticasone propionate 50 mcg/actuati on nasal spray,suspe nsion 03-16 00:00: 00 09-15 23:59 :00 No [id number] ALLERGY 2 spray DAILY 2 spray DAILY (route: nasal) Med Classific ation: Respirato ry Therapy Agents losartan 25 mg tablet 03-16 00:00: 00 09-15 23:59 :00 No [id number] HTN 1 tablet DAILY 1 tablet DAILY (route: oral) Med Classific ation: Cardiovas cular Therapy Agents melatonin 3 mg capsule 03-16 00:00: 00 09-15 23:59 :00 No [id number] SLEEP 1 capsule BEDTIME 1 capsule BEDTIME (route: oral) Med Classific ation: Central Nervous System Agents Miralax 17 gram oral powder packet 03-16 00:00: 00 09-15 23:59 :00 No [id number] CONSTIPATIO N 1 packet DAILY 1 packet DAILY (route: oral) Med Classific ation: Gastroint estinal Therapy Agents pantoprazol e 40 mg tablet,harjit yed release 03-16 00:00: 00 09-15 23:59 :00 No [id number] GERD 1 tablet EVERY AM 1 tablet EVERY AM (route: oral) Med Classific ation: Gastroint estinal Therapy Agents Tylenol 325 mg capsule 03-16 00:00: 00 09-15 23:59 :00 No [id number] PAIN 2 capsule EVERY 4 HOURS 2 capsule EVERY 4 HOURS (route: oral) Med Classific ation: Analgesic , Anti-infl ammatory or Antipyret ic Vitamin B-12 1,000 mcg tablet 03-16 00:00: 00 09-15 23:59 :00 No [id number] SUPPLEMENT 1 tablet DAILY 1 tablet DAILY (route: oral) Med Classific ation: Electroly te Balance-N utritiona l Products Vitamin D3 50 mcg (2,000 unit) capsule 7-13 00:00: 00 09-15 23:59 :00 No [id number] BONE HEALTH 1 mcg DAILY 1 mcg DAILY (route: oral) Med Classific ation: Electroly te Balance-N utritiona l Products celecoxib 200 mg capsule - 00:00: 00 05-13 23:59 :00 No [id number] NSAID 1 capsule 2 TIMES DAILY 1 capsule 2 TIMES DAILY (route: oral) Med Classific ation: Analgesic , Anti-infl ammatory or Antipyret ic Vitamin B-12 1,000 mcg tablet 2022-09 2-24 00:00: 00 09-20 00:00 :00 No [id number] Per instruc tions EVERY DAY Per instructio ns EVERY DAY (route: oral) Med Classific ation: Electroly te Balance-N Axelaa [employer] Products cholecalcif angel (vitamin D3) 50 mcg (2,000 unit) tablet 2022-09 2- 00:00: 00 09-20 00:00 :00 No [id number] Per instruc tions EVERY DAY Per instructio ns EVERY DAY (route: oral) Med Classific ation: Electroly RadarFind Balance-N Axelaa [employer] Products Acetaminoph en Extra Strength 500 mg tablet 09-20 00:00: 00 Yes [id number] PAIN / FEVER 2 tablet EVERY 8 HOURS 2 tablet EVERY 8 HOURS (route: oral) Med Classific ation: Analgesic , Anti-infl ammatory or Antipyret ic alprazolam 0.25 mg tablet 09-20 00:00: 00 Yes [id number] ANXIETY 1 tablet 3 TIMES DAILY 1 tablet 3 TIMES DAILY (route: oral) Med Classific ation: Central Nervous System Agents aspirin 81 mg tablet,harjit yed release 09-20 00:00: 00 Yes [id number] ANTIPLATELE T 1 tablet DAILY 1 tablet DAILY (route: oral) Med Classific ation: Hematolog ical Agents atorvastati n 80 mg tablet 09-20 00:00: 00 Yes [id number] ANTIHYPERLI PIDEMIC 1 tablet BEDTIME 1 tablet BEDTIME (route: oral) Med Classific ation: Cardiovas cular Therapy Agents B complex-vit vallejo C-folic acid ER 400 mcg tablet,exte nded release 09-20 00:00: 00 Yes [id number] VITAMIN SUPPLEMENT 1 tablet DAILY 1 tablet DAILY (route: oral) Med Classific ation: Electroly te Balance-N utritiona l Products citalopram 20 mg tablet 09-20 00:00: 00 Yes [id number] ANXIETY 1 tablet BEDTIME 1 tablet BEDTIME (route: oral) Med Classific ation: Central Nervous System Agents clopidogrel 75 mg tablet 09-20 00:00: 00 Yes [id number] ANTICOAGULA NT 1 tablet DAILY 1 tablet DAILY (route: oral) Med Classific ation: Hematolog ical Agents docusate sodium 100 mg capsule 09-20 00:00: 00 Yes [id number] CONSTIPATIO N 1 capsule 2 TIMES DAILY 1 capsule 2 TIMES DAILY (route: oral) Med Classific ation: Gastroint estinal Therapy Agents fluticasone propionate 50 mcg/actuati on nasal spray,suspe nsion 09-20 00:00: 00 Yes [id number] WHEEZING/AL LERGY 1 spray EVERY 12 HOURS 1 spray EVERY 12 HOURS (route: nasal) Med Classific ation: Respirato ry Therapy Agents omeprazole 20 mg delayed release,dis integrating tablet 09-20 00:00: 00 Yes [id number] GERD 1 tablet DAILY 1 tablet DAILY (route: oral) Med Classific ation: Gastroint estinal Therapy Agents dicyclomine 10 mg capsule 10-21 00:00: 00 Yes [id number] IRRITABLE BOWEL 1 capsule EVERY 6 HOURS 1 capsule EVERY 6 HOURS (route: oral) Med Classific ation: Gastroint estinal Therapy Agents Miralax 17 gram/dose oral powder - 00:00: 00 Yes [id number] DIVERTICULI TIS 17 gram DAILY 17 gram DAILY (route: oral) Med Classific ation: Gastroint estinal Therapy Agents famotidine 20 mg tablet 10-24 00:00: 00 Yes [id number] DIVERTICULI TIS 1 tablet DAILY 1 tablet [...] ON ADMISSION AND PRN FOR RN TO ASSESS/RESEARCH MANAGER TO OBSERVE PATIENT, WITH NOTIFICATION TO THE [...] ON ADMISSION AND PRN FOR RN TO ASSESS/RESEARCH MANAGER TO OBSERVE PATIENT, WITH NOTIFICATION TO THE [...] End Date/Time Encounter Type Admission Type Attending [facility] Department Encounter ID Discharge Date Discharge Status Discharge Condition Discharge Reason Percent Goals Met 2023-09-20 00:00:00 2023-11-17 00:00:00 Outpatient TERRENCE SABILLON [facility] [id number] 2023-11-17 00:00:00 DISCHARGE TO HOME OR SELF CARE INDEPENDEN T IN THE HOME HH OR PAL- GOALS MET 79.49
--- OUTSIDE RECORDS SUMMARY | 2024-08-23 13:48 | XMS_ITS | Clinical Summary ---
Author Organization Unknown Care Team Providers Care Flower Cheniller Name Role Phone KASSIDY PA, WESLEY Unavailable Unavailable ERIK PT, GUERA Unavailable Unavailable SPAFFORD OT, GATITO Unavailable Unavailable JUAN ANTONIO RUTHANN/QUINTEROS, RAINER Unavailable Unavail able [facility], MAXWELL Unavailable Unavailable ALCIRA SODA JERKER, JOEL Unavailable Unavailable BROCK BIT GATHERER, ALIE Unavailable Unavaildarline LYLES RN, TERRENCE Unavailable Unavailable LORA BIT GATHERER, ABHILASH Unavailable Unavailable Payers Payer Name Policy Type Policy Number Effective Date Expira tion Date MEDICARE.NGS.PDGM [id number] Problems Condition Name Condition Details Condition Category [...] WITHOUT ESOPHAGITIS Active 09-20 00:00: 00 OTHER BILLING TYPIST (CURRENT) DRUG THERAPY Active 09-20 00:00: 00 DETENTION (CURRENT) USE OF ANTITHROMBOT ICS/ANTIPLAT ELETS Active [...] 02-20 00:00: 00 09-15 23:59 :00 No [id number] MOOD 1 tablet BEDTIME 1 tablet BEDTIME (route: oral) Med Classific ation: Central Nervous System Agents albuterol sulfate HFA 90 mcg/actuati on aerosol inhaler 03-16 00:00: 00 09-15 23:59 :00 No [id number] SOB 1 puff 4 TIMES DAILY 1 puff 4 TIMES DAILY (route: inhalation ) Med Classific ation: Respirato ry Therapy Agents Laurel Allergy 180 mg tablet 03-16 00:00: 00 09-15 23:59 :00 No [id number] ALLERGY 1 tablet DAILY 1 tablet DAILY (route: oral) Med Classific ation: Respirato ry Therapy Agents alprazolam 0.25 mg tablet 03-16 00:00: 00 09-15 23:59 :00 No [id number] ANXIETY 1 tablet 2 TIMES DAILY 1 tablet 2 TIMES DAILY (route: oral) Med Classific ation: Central Nervous System Agents docusate sodium 100 mg capsule 03-16 00:00: 00 09-15 23:59 :00 No [id number] CONSTIPATIO N 1 capsule 2 TIMES DAILY 1 capsule 2 TIMES DAILY (route: oral) Med Classific ation: Gastroint estinal Therapy Agents fluticasone propionate 50 mcg/actuati on nasal spray,suspe nsion 03-16 00:00: 00 09-15 23:59 :00 No [id number] ALLERGY 2 spray DAILY 2 spray DAILY (route: nasal) Med Classific ation: Respirato ry Therapy Agents losartan 25 mg tablet 03-16 00:00: 00 09-15 23:59 :00 No [id number] HTN 1 tablet DAILY 1 tablet DAILY (route: oral) Med Classific ation: Cardiovas cular Therapy Agents melatonin 3 mg capsule 03-16 00:00: 00 09-15 23:59 :00 No [id number] SLEEP 1 capsule BEDTIME 1 capsule BEDTIME (route: oral) Med Classific ation: Central Nervous System Agents Miralax 17 gram oral powder packet 03-16 00:00: 00 09-15 23:59 :00 No [id number] CONSTIPATIO N 1 packet DAILY 1 packet DAILY (route: oral) Med Classific ation: Gastroint estinal Therapy Agents pantoprazol e 40 mg tablet,harjit yed release 03-16 00:00: 00 09-15 23:59 :00 No [id number] GERD 1 tablet EVERY AM 1 tablet EVERY AM (route: oral) Med Classific ation: Gastroint estinal Therapy Agents Tylenol 325 mg capsule 03-16 00:00: 00 09-15 23:59 :00 No [id number] PAIN 2 capsule EVERY 4 HOURS 2 capsule EVERY 4 HOURS (route: oral) Med Classific ation: Analgesic , Anti-infl ammatory or Antipyret ic Vitamin B-12 1,000 mcg tablet 03-16 00:00: 00 09-15 23:59 :00 No [id number] SUPPLEMENT 1 tablet DAILY 1 tablet DAILY (route: oral) Med Classific ation: Electroly te Balance-N utritiona l Products Vitamin D3 50 mcg (2,000 unit) capsule 7-13 00:00: 00 09-15 23:59 :00 No [id number] BONE HEALTH 1 mcg DAILY 1 mcg DAILY (route: oral) Med Classific ation: Electroly te Balance-N utritiona l Products celecoxib 200 mg capsule - 00:00: 00 05-13 23:59 :00 No [id number] NSAID 1 capsule 2 TIMES DAILY 1 capsule 2 TIMES DAILY (route: oral) Med Classific ation: Analgesic , Anti-infl ammatory or Antipyret ic Vitamin B-12 1,000 mcg tablet 2022-09 2-24 00:00: 00 09-20 00:00 :00 No [id number] Per instruc tions EVERY DAY Per instructio ns EVERY DAY (route: oral) Med Classific ation: Electroly te Balance-N Imax[employer]a [employer] Products cholecalcif angel (vitamin D3) 50 mcg (2,000 unit) tablet 2022-09 2- 00:00: 00 09-20 00:00 :00 No [id number] Per instruc tions EVERY DAY Per instructio ns EVERY DAY (route: oral) Med Classific ation: Electroly Octopus De[employer] Balance-N Imaxioa [employer] Products Acetaminoph en Extra Strength 500 mg tablet 09-20 00:00: 00 Yes [id number] PAIN / FEVER 2 tablet EVERY 8 HOURS 2 tablet EVERY 8 HOURS (route: oral) Med Classific ation: Analgesic , Anti-infl ammatory or Antipyret ic alprazolam 0.25 mg tablet 09-20 00:00: 00 Yes [id number] ANXIETY 1 tablet 3 TIMES DAILY 1 tablet 3 TIMES DAILY (route: oral) Med Classific ation: Central Nervous System Agents aspirin 81 mg tablet,harjit yed release 09-20 00:00: 00 Yes [id number] ANTIPLATELE T 1 tablet DAILY 1 tablet DAILY (route: oral) Med Classific ation: Hematolog ical Agents atorvastati n 80 mg tablet 09-20 00:00: 00 Yes [id number] ANTIHYPERLI PIDEMIC 1 tablet BEDTIME 1 tablet BEDTIME (route: oral) Med Classific ation: Cardiovas cular Therapy Agents B complex-vit vallejo C-folic acid ER 400 mcg tablet,exte nded release 09-20 00:00: 00 Yes [id number] VITAMIN SUPPLEMENT 1 tablet DAILY 1 tablet DAILY (route: oral) Med Classific ation: Electroly te Balance-N utritiona l Products citalopram 20 mg tablet 09-20 00:00: 00 Yes [id number] ANXIETY 1 tablet BEDTIME 1 tablet BEDTIME (route: oral) Med Classific ation: Central Nervous System Agents clopidogrel 75 mg tablet 09-20 00:00: 00 Yes [id number] ANTICOAGULA NT 1 tablet DAILY 1 tablet DAILY (route: oral) Med Classific ation: Hematolog ical Agents docusate sodium 100 mg capsule 09-20 00:00: 00 Yes [id number] CONSTIPATIO N 1 capsule 2 TIMES DAILY 1 capsule 2 TIMES DAILY (route: oral) Med Classific ation: Gastroint estinal Therapy Agents fluticasone propionate 50 mcg/actuati on nasal spray,suspe nsion 09-20 00:00: 00 Yes [id number] WHEEZING/AL LERGY 1 spray EVERY 12 HOURS 1 spray EVERY 12 HOURS (route: nasal) Med Classific ation: Respirato ry Therapy Agents omeprazole 20 mg delayed release,dis integrating tablet 09-20 00:00: 00 Yes [id number] GERD 1 tablet DAILY 1 tablet DAILY (route: oral) Med Classific ation: Gastroint estinal Therapy Agents dicyclomine 10 mg capsule 10-21 00:00: 00 Yes [id number] IRRITABLE BOWEL 1 capsule EVERY 6 HOURS 1 capsule EVERY 6 HOURS (route: oral) Med Classific ation: Gastroint estinal Therapy Agents Miralax 17 gram/dose oral powder - 00:00: 00 Yes [id number] DIVERTICULI TIS 17 gram DAILY 17 gram DAILY (route: oral) Med Classific ation: Gastroint estinal Therapy Agents famotidine 20 mg tablet 10-24 00:00: 00 Yes [id number] DIVERTICULI TIS 1 tablet DAILY 1 tablet [...] ON ADMISSION AND PRN FOR RN TO ASSESS/BIT GATHERER TO OBSERVE PATIENT, WITH NOTIFICATION TO THE [...] ON ADMISSION AND PRN FOR RN TO ASSESS/BIT GATHERER TO OBSERVE PATIENT, WITH NOTIFICATION TO THE [...] End Date/Time Encounter Type Admission Type Attending [facility] Department Encounter ID Discharge Date Discharge Status Discharge Condition Discharge Reason Percent Goals Met 2023-09-20 00:00:00 2023-11-17 00:00:00 Outpatient TERRENCE SABILLON [facility] [id number] 2023-11-17 00:00:00 DISCHARGE TO HOME OR SELF CARE INDEPENDEN T IN THE HOME HH OR PAL- GOALS MET 79.49
== END 2024-08-23 14:39 | disposition home or self-care (01) ==
PROVIDERS: PCP Internal Medicine; Visit Provider Nurse Practitioner Family
DX: R91.1 Solitary pulmonary nodule (principal); J44.9 Chronic obstructive pulmonary disease, unspecified
CPT/HCPCS: 99204

== ENCOUNTER → 2024-08-23 13:46 | Outpatient (BNVA) | payer MEDICARE, OTHER, SELFPAY | PROVIDERS: PCP Internal Medicine; Visit Provider Nurse Practitioner Family | DX: R91.1 Solitary pulmonary nodule (principal); J44.9 Chronic obstructive pulmonary disease, unspecified | CPT/HCPCS: 99202 ==

== ENCOUNTER 2024-09-12 13:23 | Outpatient (AMB) | payer MEDICARE, OTHER, SELFPAY ==
--- NOTE | 2024-09-12 13:33 | MHC.PC.OV ---
Vital Signs 09/12/24 13:35 Height 5 ft 6 in Weight 173 lb BMI 27.9 BP 112/70 Blood Pressure Location Lt brachial Position Sitting Pulse 94 Pulse Source Pulse Oximeter Pulse Oximetry (%) 95 Oxygen Delivery Method Room Air Intake Visit Reasons: Dizziness today, MARCELINO/ Jason Allergies buspirone Allergy (Intermediate, Verified 09/12/24 13:35) Rash Sulfa (Sulfonamide Antibiotics) Allergy (Intermediate, Verified 09/12/24 13:35) RASH cefuroxime Allergy (Unknown, Verified 09/12/24 13:35) Unknown garlic [GARLIC] Allergy (Unknown, Verified 09/12/24 13:35) PER H&P metronidazole [From FLAGYL] Allergy (Unknown, Verified 09/12/24 13:35) OCULAR MIGRAINES penicillamine Allergy (Unknown, Verified 09/12/24 13:35) Unknown ciprofloxacin Adverse Reaction (Intermediate, Verified 09/12/24 13:35) neuropathic pain lisinopril Adverse Reaction (Intermediate, Verified 09/12/24 13:35) Cough nitrofurantoin Adverse Reaction (Mild, Verified 09/12/24 13:35) GI side effects cefuroxime Allergy (Intermediate, Uncoded 09/12/24 13:35) wheezy cough/itch flagyl Allergy (Unknown, Uncoded 09/12/24 13:35) Unknown From KEFLEX Allergy (Unknown, Uncoded 09/12/24 13:35) RASH Metoprolol Tartrate Allergy (Unknown, Uncoded 09/12/24 13:35) Unknown Sulfacet-R Allergy (Unknown, Uncoded 09/12/24 13:35) Unknown Tobacco use date assessed: 09/12/24 Fall risk assessment: No Falls in past year Last assessed Fall Risk: 09/12/24 Dental Screening Dental Screen Date: 09/12/24 Did you have a dental visit in the last 12 months?: Yes Did you have a dental problem in the last 6 months where you did not have access to dental care?: No Was dental information given to patient?: Patient has dentist HPI MARCELINO/ [facility] HPI Details The patient is an 83-year-old female presenting with multiple health concerns, including pulmonary and heart conditions, and issues related to medication usage and anxiety. She has known pulmonary nodules under monitoring by a studio data analyst and is using Advair for COPD, though she reports difficulty with inhaler usage due to coordination issues. Her lung condition requires periodic follow-up with a CAT scan. Cardiovascular history includes a valve replacement and chronic use of Plavix as an anticoagulant, leading to minor bruising. Her blood pressure, managed with losartan, remains low, contributing to occasional dizziness. She is diagnosed with anemia, with a blood count persistently low (9.8), further contributing to her dizziness; she is not currently fastidious with fluid intake, likely exacerbating this condition. She also has essential tremors, GERD with dietary triggers, and arthritis affecting her joints, including her knees and hands. Anxiety management includes therapy, and she's been taking alprazolam for an extended period. She reports generalized itchiness suspected to be related to dryness or medication side effects. [facility] Medical History (Updated 09/12/24 @ 14:05 by Huma Garcia MD) Pulmonary nodule Chest pain URI (upper respiratory infection) HTN (hypertension) Cough Heart palpitations Constipation LLQ abdominal pain Anxiety Breast cancer screening Breast pain, left Elevated vitamin B12 level Neck muscle spasm Strain of neck muscle Low back pain Pubic ramus fracture Sore throat Skin tear of upper arm without complication Head injury, acute, without loss of consciousness Fall Dizziness Medication noncompliance due to cognitive impairment RLQ abdominal pain Sinusitis Flu syndrome Precordial chest pain Atypical chest pain Cold intolerance Former smoker Abnormal lung sounds Fever Bilateral calf pain Nausea Left lower quadrant abdominal pain Dysuria Fatigue Lower extremity weakness Aortic stenosis Obstipation Dark stools Lower abdominal pain Gastroenteritis Neck pain on right side Back pain Rhinitis Elevated BP without diagnosis of hypertension Non-rheumatic aortic stenosis Diverticulitis GERD (gastroesophageal reflux disease) Cat scratch Cat bite Epigastric discomfort Diarrhea Nausea Viral syndrome GERD (gastroesophageal reflux disease) Neuropathy Arthritis GERD (gastroesophageal reflux disease) HTN (hypertension) Irritable bowel Heart murmur Surgical History S/P TAVR (transcatheter aortic valve replacement) Hx of esophagogastroduodenoscopy Hx of colonoscopy History of tonsillectomy History of appendectomy Family History Father No problems noted. Mother No problems noted. Social History Household Members: Children Housing: House Are you a primary dialysis patient care technician to a significant other at home: No Do you presently have visiting nurse or other home services: No Alcohol intake: former Patient Tobacco Use Status: Former Tobacco user Tobacco use type: Cigarette e-Cigarette/Vaping Use: Never Used Second Hand Smoke Exposure: No Advance Directives Date on File: 09/21/23 service: No Current occupational status: retired Cognitive needs: No Hearing needs: No Vision needs: Yes (glasses) Questionnaire PHQ-9 Over the last 2 weeks, how often have you been bothered by any of the following problems? 1. Little interest or pleasure in doing things: not at all 2. Feeling down, depressed, or hopeless: several days 3. Trouble falling or staying asleep, or sleeping too much: not at all 4. Feeling tired or having little energy: not at all 5. Poor appetite or overeating: not at all 6. Feeling bad about yourself - or that you are a failure or have let yourself or your family down: not at all 7. Trouble concentrating on things, such as reading the newspaper or watching television: not at all 8. Moving or speaking so slowly that other people could have noticed. Or the opposite - being so fidgety or restless that you have been moving around a lot more than usual: not at all 9. Thoughts that you would be better off or of hurting yourself in some way: not at all Total score: 1 Depression Screening Interpretation: Negative Depression Screening Done: Yes 03735 - PHQ-9 Billing: Yes Source: Developed by Drs. Anatoliy Gavin, Peyton Hunt, Austyn Weber and colleagues, with an educational kentrell from [employer]. Thrive Questionnaire Date Thrive assessed: 09/12/24 I am a: Patient What is your living situation today?: I have a steady place to live Within the past 12 months, did the food you bought not last and you didn't have the money to get more?: Never true Within the past 12 months, did you worry whether your food would run out before you got money to buy more?: Never true Do you have trouble paying for medicines?: No Do you have trouble getting transportation to medical appointments?: No Do you have trouble paying your heating and electricity bill?: No Do you have trouble taking care of your child, family member or friend?: No Do you have trouble with day-to-day activities such as bathing, preparing meals, shopping, managing finances, etc.?: No Are you currently unemployed and looking for a job?: No Are you interested in more education?: No Currently or been in a relationship where the following occur: No concerns reported THRIVE Score: 0 AUDIT C Alcohol Use Questionnaire (AUDIT-C) 1. How often do you have a drink containing alcohol?: Never 3. How often do you have six or more drinks on one occasion?: Never Total Score: 0 PAIGE-7 AMB Questionnaire PAIGE-7 Date PAIGE - 7 assessed: 09/12/24 Feeling nervous, anxious, or on edge: 0 = Not at all Not being able to stop or control worryin = Not at all Worrying too much about different things: 0 = Not at all Trouble relaxin = Not at all Being so restless that it is hard to sit still: 0 = Not at all Becoming easily annoyed or irritable: 0 = Not at all Feeling afraid as if something awful might happen: 0 = Not at all Total PAIGE-7 score (0-4 normal; 5-9 mild; 10-14 moderate; 15-21 severe): 0 Source: Developed by Drs. Anatoliy Gavin, Peyton Hunt, Austyn Weber and colleagues, with an educational kentrell from [employer]. Physical exam (Primary Care) Vital Signs: Last Vital Signs Pulse 94 09/12/24 13:35 BP 112/70 09/12/24 13:35 Pulse Ox 95 09/12/24 13:35 Oxygen Delivery Method Room Air 09/12/24 13:35 BMI result Body Mass Index 27.9 Tobacco/Smoking Status: Tobacco use Status Tobacco use date assessed 09/12/24 09/12/24 13:46 Patient Tobacco Use Status Former Tobacco user 09/12/24 13:34 Tobacco use type Cigarette 09/12/24 13:34 e-Cigarette/Vaping Use Never Used 09/12/24 13:34 PHQ-9: PHQ-9 Score PHQ-9: Total score 1 09/12/24 14:30 Depression Screening Interpretation: Negative Thrive Assessment: Date of Thrive Assessment Date Thrive assessed 09/12/24 09/12/24 13:46 Currently or been in a relationship where the following occur: No concerns reported Const General: alert; No acute distress Eyes Conjunctivae: conjunctivae normal Resp Auscultation: clear to auscultation bilaterally Cardio Rate: regular rate Rhythm: regular rhythm GI Inspection: Yes normal to inspection Extrem General: Yes normal to inspection and No edema Office Procedures Flu Questionnaire Does the patient have a severe egg allergy?: No Does the patient have severe life threatening allergies?: No Does the patient have a fever or illness today?: No Has the patient ever had Guillain-Woodward Syndrome?: No Has the patient ever had any past reaction to a flu shot?: No Immunizations Fluarix Triv [id number] (PF) 45 mcg (15 mcg x 3)/0.5 mL IM syringe Performing Provider: Huma Garcia MD [facility] Administered by: Ami Alcaraz CMA on 09/12/24 14:30 Dose Route Admin Location Dispensed Lot Number Expiration Date [facility] Chief Construction Inspector 0.5 mL IM Left Deltoid 0.5 mL [id number] 03/03/25 [id number] [employer] in [employer] VIS Given Date VIS Provided VIS Publication Date 09/12/24 Single Vaccine 21 Eligibility Eligibility Date Funding Source Not [facility] Eligible 09/12/24 Private Coding Level of Care Code Est Pt Level 4 (74576) Diagnoses Pulmonary nodule R91.1 Primary hypertension I10 Hypertension type: primary hypertension S/P TAVR (transcatheter aortic valve replacement) Z95.2 COPD (chronic obstructive pulmonary disease) J44.9 Former smoker Z87.891 Pancytopenia D61.818 Generalized anxiety disorder F41.1 Elevated blood sugar R73.9 Additional Codes PHQ-9 - 16470 - PHQ-9 Billing: Yes ([id number]) Assessment & Plan Assessment & Plan (1) Pulmonary nodule: Code(s): R91.1 - Solitary pulmonary nodule Category: Medical (2) HTN (hypertension): Code(s): I10 - Essential (primary) hypertension Category: Medical Qualifiers: Hypertension type: primary hypertension Qualified Code(s): I10 - Essential (primary) hypertension (3) S/P TAVR (transcatheter aortic valve replacement): Code(s): Z95.2 - Presence of prosthetic heart valve Category: Surgical (4) COPD (chronic obstructive pulmonary disease): Code(s): J44.9 - Chronic obstructive pulmonary disease, unspecified Category: Medical (5) Former smoker: Code(s): Z87.891 - Personal history of nicotine dependence Category: Social Hx (6) Pancytopenia: Code(s): D61.818 - Other pancytopenia Category: Medical (7) Generalized anxiety disorder: Comment: abhilash ruvalcaba elder Code(s): F41.1 - Generalized anxiety disorder Category: Medical (8) Elevated blood sugar: Code(s): R73.9 - Hyperglycemia, unspecified Category: Medical Plan - Continue monitoring pulmonary nodules with scheduled CAT scans. Reinforce correct inhaler technique and evaluate alternatives to improve usage. - Maintain current cardiovascular medication regimen but closely monitor for any side effects such as excessive bruising due to Plavix. - Encourage regular follow-up for anemia and possible hematological evaluation if counts continue to decline. - Investigate cause of generalized itchiness further and consider topical treatments or alternative medications if current regimen is suspected to be contributory. - Support hypertension management through current antihypertensive therapy while ensuring patient approaches positional changes slowly to mitigate dizziness. - Advocate increased fluid intake, coupled with planned dietary modifications to reduce GERD symptoms, avoiding known triggers. - Continue essential tremor management with current therapy and consider support for anxiety through counseling and possible medication adjustments. - Suggest physical therapy or mobility exercises suited for her arthritis, with a focus on maintaining range of motion and reducing stiffness. - Engage in preventive health measures; encourage seeking flu vaccine promptly due to current seasonal risk. Discuss potential consideration for RSV vaccine. Orders: Orders Comprehensive Met. Panel Today R73.9 - Hyperglycemia, unspecified Free T4 (Free Thyroxine) Today R73.9 - Hyperglycemia, unspecified Complete Blood Count Auto Diff Today R73.9 - Hyperglycemia, unspecified Reticulocyte Count Today R73.9 - Hyperglycemia, unspecified Ferritin Today R73.9 - Hyperglycemia, unspecified Hemoglobin A1c Today R73.9 - Hyperglycemia, unspecified IRON PROFILE Today R73.9 - Hyperglycemia, unspecified Vitamin B12 and Folate Today R73.9 - Hyperglycemia, unspecified Thyroid Stimulating Hormone Today R73.9 - Hyperglycemia, unspecified Vitamin D 25-OH Total Today R73.9 - Hyperglycemia, unspecified B Type Natriuretic Peptide Today R73.9 - Hyperglycemia, unspecified UA CC w/rflx Micro + Cult Today R30.0 - Dysuria, R73.9 - Hyperglycemia, unspecified Influenza [id number] Immunization Today Z23 - Encounter for immunization Medications: New fluticasone propion-salmeterol 250-50 mcg/dose (Advair Diskus) 1 inh inhalation BID 60 ea 1RF J44.9 - Chronic obstructive pulmonary disease, unspecified Discontinued fluticasone propion-salmeterol 115-21 mcg/actuation (Advair HFA) Discontinued Reason: Patient no longer taking 2 puffs inhalation Q12H 12 grams 3RF
[2024-09-12 13:35] VITALS: BP 112/70; PULSE 94; O2SAT 95; BMI 27.9
--- OUTSIDE RECORDS SUMMARY | 2024-09-12 14:42 | XMS_ITS | Clinical Summary ---
Author Organization Unknown Care Team Providers Care Customer Service Leader Name Role Phone KASSIDY PA, WESLEY Unavailable Unavailable ERIK PT, GUERA Unavailable Unavailable SPAFFORD OT, GATITO Unavailable Unavailable JUAN ANTONIO ZIPPER IRONER/QUINTEROS, RAINER Unavailable Unavail able [facility] [address], MAXWELL Unavailable Unavailable ALCIRA SCREWMAKER [employer], JOEL Unavailable Unavailable BROCK WORK ORDER SORTING CLERK, ALIE Unavailable Unavaildarline LYLES RN, TERRENCE Unavailable Unavailable LORA WORK ORDER SORTING CLERK, ABHILASH Unavailable Unavailable Payers Payer Name Policy Type Policy Number Effective Date Expira tion Date MEDICARE.NGS.PDGM [id number] Problems Condition Name Condition Details Condition Category [...] WITHOUT ESOPHAGITIS Active 09-20 00:00: 00 OTHER RETIREMENT (CURRENT) DRUG THERAPY Active 09-20 00:00: 00 RETIREMENT (CURRENT) USE OF ANTITHROMBOT ICS/ANTIPLAT ELETS Active [...] 02-20 00:00: 00 09-15 23:59 :00 No [id number] MOOD 1 tablet BEDTIME 1 tablet BEDTIME (route: oral) Med Classific ation: Central Nervous System Agents albuterol sulfate HFA 90 mcg/actuati on aerosol inhaler 03-16 00:00: 00 09-15 23:59 :00 No [id number] SOB 1 puff 4 TIMES DAILY 1 puff 4 TIMES DAILY (route: inhalation ) Med Classific ation: Respirato ry Therapy Agents [place] Allergy 180 mg tablet 03-16 00:00: 00 09-15 23:59 :00 No [id number] ALLERGY 1 tablet DAILY 1 tablet DAILY (route: oral) Med Classific ation: Respirato ry Therapy Agents alprazolam 0.25 mg tablet 03-16 00:00: 00 09-15 23:59 :00 No [id number] ANXIETY 1 tablet 2 TIMES DAILY 1 tablet 2 TIMES DAILY (route: oral) Med Classific ation: Central Nervous System Agents docusate sodium 100 mg capsule 03-16 00:00: 00 09-15 23:59 :00 No [id number] CONSTIPATIO N 1 capsule 2 TIMES DAILY 1 capsule 2 TIMES DAILY (route: oral) Med Classific ation: Gastroint estinal Therapy Agents fluticasone propionate 50 mcg/actuati on nasal spray,suspe nsion 03-16 00:00: 00 09-15 23:59 :00 No [id number] ALLERGY 2 spray DAILY 2 spray DAILY (route: nasal) Med Classific ation: Respirato ry Therapy Agents losartan 25 mg tablet 03-16 00:00: 00 09-15 23:59 :00 No [id number] HTN 1 tablet DAILY 1 tablet DAILY (route: oral) Med Classific ation: Cardiovas cular Therapy Agents melatonin 3 mg capsule 03-16 00:00: 00 09-15 23:59 :00 No [id number] SLEEP 1 capsule BEDTIME 1 capsule BEDTIME (route: oral) Med Classific ation: Central Nervous System Agents Miralax 17 gram oral powder packet 03-16 00:00: 00 09-15 23:59 :00 No [id number] CONSTIPATIO N 1 packet DAILY 1 packet DAILY (route: oral) Med Classific ation: Gastroint estinal Therapy Agents pantoprazol e 40 mg tablet,harjit yed release 03-16 00:00: 00 09-15 23:59 :00 No [id number] GERD 1 tablet EVERY AM 1 tablet EVERY AM (route: oral) Med Classific ation: Gastroint estinal Therapy Agents Tylenol 325 mg capsule 03-16 00:00: 00 09-15 23:59 :00 No [id number] PAIN 2 capsule EVERY 4 HOURS 2 capsule EVERY 4 HOURS (route: oral) Med Classific ation: Analgesic , Anti-infl ammatory or Antipyret ic Vitamin B-12 1,000 mcg tablet 03-16 00:00: 00 09-15 23:59 :00 No [id number] SUPPLEMENT 1 tablet DAILY 1 tablet DAILY (route: oral) Med Classific ation: Electroly te Balance-N utritiona l Products Vitamin D3 50 mcg (2,000 unit) capsule 7-13 00:00: 00 09-15 23:59 :00 No [id number] BONE HEALTH 1 mcg DAILY 1 mcg DAILY (route: oral) Med Classific ation: Electroly te Balance-N utritiona l Products celecoxib 200 mg capsule - 00:00: 00 05-13 23:59 :00 No [id number] NSAID 1 capsule 2 TIMES DAILY 1 capsule 2 TIMES DAILY (route: oral) Med Classific ation: Analgesic , Anti-infl ammatory or Antipyret ic Vitamin B-12 1,000 mcg tablet 2022-09 2-24 00:00: 00 09-20 00:00 :00 No [id number] Per instruc tions EVERY DAY Per instructio ns EVERY DAY (route: oral) Med Classific ation: Electroly te Balance-N Stellarraya [employer] cholecalcif angel (vitamin D3) 50 mcg (2,000 unit) tablet 2022-09 2- 00:00: 00 09-20 00:00 :00 No [id number] Per instruc tions EVERY DAY Per instructio ns EVERY DAY (route: oral) Med Classific ation: Electroly PhotoSynesi Balance-N Stell[place]a [employer] Acetaminoph en Extra Strength 500 mg tablet 09-20 00:00: 00 Yes [id number] PAIN / FEVER 2 tablet EVERY 8 HOURS 2 tablet EVERY 8 HOURS (route: oral) Med Classific ation: Analgesic , Anti-infl ammatory or Antipyret ic alprazolam 0.25 mg tablet 09-20 00:00: 00 Yes [id number] ANXIETY 1 tablet 3 TIMES DAILY 1 tablet 3 TIMES DAILY (route: oral) Med Classific ation: Central Nervous System Agents aspirin 81 mg tablet,harjit yed release 09-20 00:00: 00 Yes [id number] ANTIPLATELE T 1 tablet DAILY 1 tablet DAILY (route: oral) Med Classific ation: Hematolog ical Agents atorvastati n 80 mg tablet 09-20 00:00: 00 Yes [id number] ANTIHYPERLI PIDEMIC 1 tablet BEDTIME 1 tablet BEDTIME (route: oral) Med Classific ation: Cardiovas cular Therapy Agents B complex-vit vallejo C-folic acid ER 400 mcg tablet,exte nded release 09-20 00:00: 00 Yes [id number] VITAMIN SUPPLEMENT 1 tablet DAILY 1 tablet DAILY (route: oral) Med Classific ation: Electroly te Balance-N utritiona l Products citalopram 20 mg tablet 09-20 00:00: 00 Yes [id number] ANXIETY 1 tablet BEDTIME 1 tablet BEDTIME (route: oral) Med Classific ation: Central Nervous System Agents clopidogrel 75 mg tablet 09-20 00:00: 00 Yes [id number] ANTICOAGULA NT 1 tablet DAILY 1 tablet DAILY (route: oral) Med Classific ation: Hematolog ical Agents docusate sodium 100 mg capsule 09-20 00:00: 00 Yes [id number] CONSTIPATIO N 1 capsule 2 TIMES DAILY 1 capsule 2 TIMES DAILY (route: oral) Med Classific ation: Gastroint estinal Therapy Agents fluticasone propionate 50 mcg/actuati on nasal spray,suspe nsion 09-20 00:00: 00 Yes [id number] WHEEZING/AL LERGY 1 spray EVERY 12 HOURS 1 spray EVERY 12 HOURS (route: nasal) Med Classific ation: Respirato ry Therapy Agents omeprazole 20 mg delayed release,dis integrating tablet 09-20 00:00: 00 Yes [id number] GERD 1 tablet DAILY 1 tablet DAILY (route: oral) Med Classific ation: Gastroint estinal Therapy Agents dicyclomine 10 mg capsule 10-21 00:00: 00 Yes [id number] IRRITABLE BOWEL 1 capsule EVERY 6 HOURS 1 capsule EVERY 6 HOURS (route: oral) Med Classific ation: Gastroint estinal Therapy Agents Miralax 17 gram/dose oral powder - 00:00: 00 Yes [id number] DIVERTICULI TIS 17 gram DAILY 17 gram DAILY (route: oral) Med Classific ation: Gastroint estinal Therapy Agents famotidine 20 mg tablet 10-24 00:00: 00 Yes [id number] DIVERTICULI TIS 1 tablet DAILY 1 tablet [...] ON ADMISSION AND PRN FOR RN TO ASSESS/WORK ORDER SORTING CLERK TO OBSERVE PATIENT, WITH NOTIFICATION TO THE [...] ON ADMISSION AND PRN FOR RN TO ASSESS/WORK ORDER SORTING CLERK TO OBSERVE PATIENT, WITH NOTIFICATION TO THE [...] End Date/Time Encounter Type Admission Type Attending [facility] Department Encounter ID Discharge Date Discharge Status Discharge Condition Discharge Reason Percent Goals Met 2023-09-20 00:00:00 2023-11-17 00:00:00 Outpatient TERRENCE [facility] [id number] 2023-11-17 00:00:00 DISCHARGE TO HOME OR SELF CARE INDEPENDEN T IN THE HOME HH OR PAL- GOALS MET 79.49
== END 2024-09-12 14:41 | disposition home or self-care (01) ==
PROVIDERS: PCP Internal Medicine; Visit Provider Internal Medicine
DX: R91.1 Solitary pulmonary nodule (principal); J44.9 Chronic obstructive pulmonary disease, unspecified; D61.818 Other pancytopenia; I10 Essential (primary) hypertension; Z95.2 Presence of prosthetic heart valve; Z87.891 Personal history of nicotine dependence; F41.1 Generalized anxiety disorder; R73.9 Hyperglycemia, unspecified; Z23 Encounter for immunization

== ENCOUNTER → 2024-09-12 13:23 | Outpatient (BNVA) | payer MEDICARE, OTHER, SELFPAY | PROVIDERS: PCP Internal Medicine; Visit Provider Internal Medicine | DX: I10 Essential (primary) hypertension (principal); R42 Dizziness and giddiness; R91.1 Solitary pulmonary nodule; J44.9 Chronic obstructive pulmonary disease, unspecified; G25.0 Essential tremor; K21.9 Gastro-esophageal reflux disease without esophagitis; F41.1 Generalized anxiety disorder; D61.818 Other pancytopenia; R73.9 Hyperglycemia, unspecified; Z23 Encounter for immunization; Z95.2 Presence of prosthetic heart valve; Z79.01 Long term (current) use of anticoagulants; Z87.891 Personal history of nicotine dependence | CPT/HCPCS: 90471; 90656; 96127; 99212 ==

== ENCOUNTER 2024-09-19 10:59 | Outpatient (REF) | payer MEDICARE, OTHER, SELFPAY ==
[2024-09-19 13:04] LABS: MANUAL DIFF FLAG NO
[2024-09-19 13:08] LABS: Appearance Urine Clear; Color Urine Yellow; Glucose Urine UA Negative (Negative); Leukocyte Esterase Urine Trace (Negative); Nitrite Urine Negative (Negative); Specific Gravity - Urine 1.015 (1.005-1.025); UMIC TRIGGER UACC YES; Urine Blood Negative (Negative); Urine Ketones Negative (Negative); Urine Protein Negative (Neg-Trace)
[2024-09-19 13:10] LABS: Basophils Percent Auto 1.2 % (0-2); Eosinophils Absolute Auto 0.1 X10*3/uL (0.0-0.4); Hematocrit 31.7 % (37.0-47.0); Hemoglobin 10.5 g/dl (12.0-16.0); Imm Gran Abs Auto 0.01 X10*3/uL (0.00-0.03); Imm Gran Pct Auto 0.4 % (0.0-0.4); Immature Retic Fraction 11.6 % (3.0-15.9); Lymphocytes Absolute Auto 0.7 X10*3/uL (1.2-4.9); Lymphocytes Percent Auto 26.1 % (20-40); Mean Corpuscular HGB Conc 33.1 g/dl (31.0-35.0); Mean Corpuscular Hemoglobin 30.9 pg (27.0-33.0); Mean Corpuscular Volume 93.2 fL (80.0-98.0); Mean Platelet Volume 12.3 fL (9.4-12.3); Monocytes Absolute Auto 0.2 X10*3/uL (0.1-1.2); Monocytes Percent Auto 9.1 % (2-11); Neutrophils Absolute Auto 1.5 x10*3/uL (2.0-8.3); Neutrophils Percent Auto 59.2 % (45-73); Platelet Count 131 X10*3/uL (160-400); Red Cell Distribution Width 14.6 % (11.0-16.0); Retic HGB Equivalent 30.8 pg (30.0-35.0); Reticulocyte Percent 1.6 % (0.5-1.8); Reticulocytes Absolute 0.053 X10*6/uL (0.026-0.095)
[2024-09-19 13:12] LABS: Bacteria Urine None Seen (None Seen); Hyaline Casts Urine 0-2 /LPF (0-2); RBC Urine 0-2 /HPF (0-2); Squamous Epithelial Cell Urine 0-2 /HPF (0-2); WBC Urine 0-5 /HPF (0-5)
[2024-09-19 13:20] LABS: White Blood Count 2.5 X10*3/uL (4.8-10.8)
[2024-09-19 13:21] LABS: Estimated Average Glucose 108 mg/dL; Hemoglobin A1C 93.0231 umol/L; Hemoglobin A1c % 5.4 % (<6.0); Total Hemoglobin (HGBA1C) 2616.6824 umol/L
[2024-09-19 13:28] LABS: Alanine Aminotransferase 18 U/L (0-31); Albumin Level 4.2 g/dL (3.5-5.0); Alkaline Phosphatase 107 U/L (39-117); Anion Gap 8 (12-20); Aspartate Amino Transferase 26 U/L (5-31); Bilirubin Total 0.3 mg/dL (0.0-1.0); Blood Urea Nitrogen 31 mg/dL (9-16); Calcium 9.9 mg/dL (8.4-10.2); Carbon Dioxide 31 mmol/L (22-29); Chloride 107 mmol/L (96-108); Cholesterol 191 mg/dL (<200); Estimated Glomerular Filt Rate > 60; Glucose Random 95 mg/dL (60-115); HDL Cholesterol 63 mg/dL (>40); Iron 70 mcg/dL (30-160); LDL Cholesterol Calculated 108 mg/dL (<100); Percent Iron Saturation 20 % (15-50); Potassium 5.1 mmol/L (3.3-5.1); Sodium 141 mmol/L (135-145); Total Iron Binding Capacity 343 mcg/dL (228-428); Total Protein 7.6 g/dL (6.5-8.0); Triglycerides 104 mg/dL (<150); Unsaturated Iron Binding 273 ug/dL
[2024-09-19 13:44] LABS: B Type Natriuretic Peptide 58 pg/mL (<100)
[2024-09-19 13:51] LABS: Ferritin 13 ng/mL (10-250); Free T4 (Free Thyroxine) 1.02 ng/dL (0.71-1.85); Thyroid Stimulating Hormone 1.27 uIU/mL (0.32-4.0); Vitamin D 25-OH Total 53.4 ng/mL (>30)
[2024-09-19 13:56] LABS: Folate > 20.0 ng/mL (> or = 4.0); Vitamin B12 374 pg/mL (200-900)
== END 2024-09-19 11:00 | disposition home or self-care (01) ==
LOC: HO.HMGCLDS 10:59
PROVIDERS: PCP Internal Medicine; Visit Provider Internal Medicine
DX: R73.9 Hyperglycemia, unspecified (principal); E78.00 Pure hypercholesterolemia, unspecified; I10 Essential (primary) hypertension
CPT/HCPCS: 36415; 80053; 80061; 81001; 82306; 82607; 82728; 82746; 83036; 83540; 83880; 84439; 84443; 85025; 85045

== ENCOUNTER 2024-09-29 10:35 | Emergency (ER) | payer MEDICARE, OTHER, SELFPAY ==
[2024-09-29 10:45] VITALS: BP 154/82; PULSE 88; RESP 16; TEMP 36.6; O2SAT 94; BMI 26.6
--- NOTE | 2024-09-29 10:52 | ED.GENADULT ---
HPI - General Adult General Chief complaint: General Medical Stated complaint: R arm numbness Related Data Home Medications ?Medication ?Instructions ?Recorded ?Confirmed folic acid 400 mcg tablet 0.4 mg PO DAILY 11/23/23 08/12/24 alprazolam 0.25 mg tablet 0.25 mg PO BID 03/28/24 08/12/24 mirtazapine 7.5 mg tablet 15 mg PO BEDTIME 07/12/24 08/12/24 fluticasone propionate 50 spray intranasal 08/23/24 mcg/actuation nasal spray,suspension oxcarbazepine 150 mg tablet 150 mg PO BID 09/12/24 (Trileptal) Previous Rx's ?Medication ?Instructions ?Recorded acetaminophen 325 mg capsule 325 mg PO Q4H PRN pain #30 caps 12/17/23 (Tylenol) estradiol 0.01% (0.1 mg/gram) See Rx Instructions vaginal 3XW 30 04/12/24 vaginal cream days #42.5 grams cholecalciferol (vitamin D3) 50 50 mcg PO DAILY #30 tabs 08/10/24 mcg (2,000 unit) tablet (Vitamin D3) losartan 25 mg tablet 25 mg PO DAILY 90 days #90 tabs 08/19/24 albuterol sulfate 90 mcg/actuation 2 puff inhalation Q4-6H PRN 09/06/24 aerosol inhaler shortness of breath or wheezing #1 ea fluticasone 250 mcg-salmeterol 50 1 inh inhalation BID #60 ea 09/12/24 mcg/dose blistr powdr for inhalation (Advair Diskus) pantoprazole 40 mg tablet,delayed 40 mg PO DAILY #90 tabs 09/23/24 release (Protonix) mirabegron 25 mg tablet,extended 25 mg PO DAILY 30 days #30 tabs 09/26/24 release 24 hr (Myrbetriq) clopidogrel 75 mg tablet 75 mg PO QAM #90 tabs 09/27/24 Allergies Allergy/AdvReac Type Severity Reaction Status Date / Time buspirone Allergy Intermediate Rash Verified 09/29/24 10:46 Sulfa (Sulfonamide Allergy Intermediate RASH Verified 09/29/24 10:46 Antibiotics) cefuroxime Allergy Unknown Unknown Verified 09/29/24 10:46 garlic [GARLIC] Allergy Unknown PER H&P Verified 09/29/24 10:46 metronidazole [From FLAGYL] Allergy Unknown OCULAR Verified 09/29/24 10:46 MIGRAINES penicillamine Allergy Unknown Unknown Verified 09/29/24 10:46 ciprofloxacin AdvReac Intermediate neuropathic Verified 09/29/24 10:46 pain lisinopril AdvReac Intermediate Cough Verified 09/29/24 10:46 nitrofurantoin AdvReac Mild GI side Verified 09/29/24 10:46 effects cefuroxime Allergy Intermediate wheezy Uncoded 09/12/24 13:35 cough/itch flagyl Allergy Unknown Unknown Uncoded 09/12/24 13:35 From KEFLEX Allergy Unknown RASH Uncoded 09/12/24 13:35 Metoprolol Tartrate Allergy Unknown Unknown Uncoded 09/12/24 13:35 Sulfacet-R Allergy Unknown Unknown Uncoded 09/12/24 13:35 [facility] Past Medical History Medical History (Updated 09/29/24 @ 11:40 by ROMAINE Leigh) Pulmonary nodule Chest pain URI (upper respiratory infection) HTN (hypertension) Cough Heart palpitations Constipation LLQ abdominal pain Anxiety Breast cancer screening Breast pain, left Elevated vitamin B12 level Neck muscle spasm Strain of neck muscle Low back pain Pubic ramus fracture Sore throat Skin tear of upper arm without complication Head injury, acute, without loss of consciousness Fall Dizziness Medication noncompliance due to cognitive impairment RLQ abdominal pain Sinusitis Flu syndrome Precordial chest pain Atypical chest pain Cold intolerance Former smoker Abnormal lung sounds Fever Bilateral calf pain Nausea Left lower quadrant abdominal pain Dysuria Fatigue Lower extremity weakness Aortic stenosis Obstipation Dark stools Lower abdominal pain Gastroenteritis Neck pain on right side Back pain Rhinitis Elevated BP without diagnosis of hypertension Non-rheumatic aortic stenosis Diverticulitis GERD (gastroesophageal reflux disease) Cat scratch Cat bite Epigastric discomfort Diarrhea Nausea Viral syndrome GERD (gastroesophageal reflux disease) Neuropathy Arthritis GERD (gastroesophageal reflux disease) HTN (hypertension) Irritable bowel Heart murmur Surgical History S/P TAVR (transcatheter aortic valve replacement) Hx of esophagogastroduodenoscopy Hx of colonoscopy History of tonsillectomy History of appendectomy Family History Family History Father No problems noted. Mother No problems noted. Social History Social History Household Members: Children Housing: House Are you a primary animal care attendant to a significant other at home: No Do you presently have visiting nurse or other home services: No Alcohol intake: former Patient Tobacco Use Status: Former Tobacco user Tobacco use type: Cigarette e-Cigarette/Vaping Use: Never Used Second Hand Smoke Exposure: No Advance Directives: Yes Advance Directives on File: Yes Advance Directives Date on File: 09/21/23 Do you have a plan to hurt others: No Plan service: No Current occupational status: retired Cognitive needs: No Hearing needs: No Vision needs: Yes (glasses) Physical Exam ED Vital Signs: Vital Signs - 24 hr 09/29/24 10:45 Temperature 97.9 F Pulse Rate 88 Respiratory Rate 16 Blood Pressure 154/82 H Pulse Oximetry 94 Oxygen Delivery Method Room Air BMI result Body Mass Index 26.6 Course Course Course Narrative: This is a Rapid Medical Examination (RME) performed by Dori Orozco PA-C in triage. Full HPI, ROS, assessment and treatment plan per primary provider in the Main ED. 83 yo female presenting to the ER for evaluation of right arm tingling and shaking today when she was home playing a game on her cell phone. she is worried about her heart. she has no chest pain. she appears well. anxious. speaking in complete sentences. equal chest rise and fall. no deformity or swelling of the right UE noted. Plan: basic labs, full neuro exam Discharge Plan Discharge Clinical Impression: Anxiety Patient Disposition: Left W/O Completing Treatment Prescriptions: No Action mirtazapine 7.5 mg tablet 15 mg PO BEDTIME cholecalciferol (vitamin D3) [Vitamin D3] 50 mcg (2,000 unit) tablet 50 mcg PO DAILY Qty: 30 3RF losartan 25 mg tablet 25 mg PO DAILY 90 Days Qty: 90 1RF albuterol sulfate 90 mcg/actuation HFA aerosol inhaler 2 puff inhalation Q4-6H PRN (Reason: shortness of breath or wheezing) Qty: 1 2RF pantoprazole [Protonix] 40 mg tablet,delayed release (DR/EC) 40 mg PO DAILY Qty: 90 1RF mirabegron [Myrbetriq] 25 mg tablet extended release 24 hr 25 mg PO DAILY 30 Days Qty: 30 1RF clopidogrel 75 mg tablet 75 mg PO QAM Qty: 90 0RF folic acid 400 mcg Tablet 0.4 mg PO DAILY acetaminophen [Tylenol] 325 mg capsule 325 mg PO Q4H PRN (Reason: pain) Qty: 30 0RF alprazolam 0.25 mg Tablet 0.25 mg PO BID estradiol 0.01 % (0.1 mg/gram) cream See Rx Instructions vaginal 3XW 30 Days Qty: 42.5 1RF Rx Instructions: pea sized amount to urethra daily times 1 month then 3 times per week thereafter fluticasone propionate 50 mcg/actuation spray,suspension intranasal oxcarbazepine [Trileptal] 150 mg tablet 150 mg PO BID fluticasone propion-salmeterol [Advair Diskus] 250-50 mcg/dose blister with device 1 inh inhalation BID Qty: 60 1RF Discharge Date/Time: 09/29/24 11:45
== END 2024-09-29 11:45 | disposition left against medical advice (07) ==
PROVIDERS: Emergency Provider Emergency Medicine; PCP Internal Medicine
DX: F41.1 Generalized anxiety disorder (principal); F43.0 Acute stress reaction; R20.0 Anesthesia of skin; Z79.899 Other long term (current) drug therapy; Z87.891 Personal history of nicotine dependence
CPT/HCPCS: 99281; 99283

== ENCOUNTER 2024-10-15 14:13 | Outpatient (AMB) | payer MEDICARE, OTHER, SELFPAY ==
--- NOTE | 2024-10-15 14:14 | MHC.OFFVIS ---
Vital Signs 10/15/24 14:16 Height 5 ft 6 in Weight 181 lb BMI 29.2 BP 120/62 Blood Pressure Location Rt brachial Position Sitting Pulse 93 Pulse Source Pulse Oximeter Pulse Oximetry (%) 96 Oxygen Delivery Method Room Air Intake Visit Reasons: pulmonary nodule Enrollment Services Dean Required: No Lens Gauger: Lens Gauger offered & declined Accompanied by: Son Allergies buspirone Allergy (Intermediate, Verified 09/29/24 10:46) Rash Sulfa (Sulfonamide Antibiotics) Allergy (Intermediate, Verified 09/29/24 10:46) RASH cefuroxime Allergy (Unknown, Verified 09/29/24 10:46) Unknown garlic [GARLIC] Allergy (Unknown, Verified 09/29/24 10:46) PER H&P metronidazole [From FLAGYL] Allergy (Unknown, Verified 09/29/24 10:46) OCULAR MIGRAINES penicillamine Allergy (Unknown, Verified 09/29/24 10:46) Unknown ciprofloxacin Adverse Reaction (Intermediate, Verified 09/29/24 10:46) neuropathic pain lisinopril Adverse Reaction (Intermediate, Verified 09/29/24 10:46) Cough nitrofurantoin Adverse Reaction (Mild, Verified 09/29/24 10:46) GI side effects cefuroxime Allergy (Intermediate, Uncoded 09/12/24 13:35) wheezy cough/itch flagyl Allergy (Unknown, Uncoded 09/12/24 13:35) Unknown From KEFLEX Allergy (Unknown, Uncoded 09/12/24 13:35) RASH Metoprolol Tartrate Allergy (Unknown, Uncoded 09/12/24 13:35) Unknown Sulfacet-R Allergy (Unknown, Uncoded 09/12/24 13:35) Unknown Medication List - Last Reconciled 10/15/24 by Lo Berman LPN acetaminophen (Tylenol) 325 mg PO Q4H PRN albuterol sulfate 90 mcg/actuation 2 puffs inhalation Q4-6H PRN alprazolam 0.25 mg PO BID cholecalciferol (vitamin D3) (Vitamin D3) 50 mcg PO DAILY clopidogrel 75 mg PO QAM estradiol 0.01%(0.1mg/gram) pea sized amount to urethra daily times 1 month then 3 times per week thereafter 30 days fluticasone propion-salmeterol 250-50 mcg/dose (Advair Diskus) 1 inh inhalation BID fluticasone propionate 50 mcg/actuation sprays intranasal folic acid 0.4 mg PO DAILY losartan 25 mg PO DAILY 90 days mirabegron ER (Myrbetriq) 25 mg PO DAILY 30 days mirtazapine 15 mg PO BEDTIME oxcarbazepine (Trileptal) 150 mg PO BID pantoprazole (Protonix) 40 mg PO DAILY HPI HPI pulmonary nodule: Details: mauricio is a pleasant 83-year-old female, former smoker, quit 15+ years ago with 50 pyh with underlying moderate COPD, HTN, aortic valve replacement, severe generalized anxiety disorder, anemia and GERD. Today she is accompanied by son. She was referred by PCP for pulmonary evaluation after CXR which revealed JAYSHREE nodule that has become more pronounced, ultimately having chest CT 08/19. There were multiple scattered pulmonary nodules, <5mm, and noted apical scarring however has some ggo on the JAYSHREE as well as chronic interstitial changes. Repeat chest CT in 6 months scheduled to assess stability. At the last visit, she was started on Advair HFA for occasional dry cough and dyspnea on moderate exertion. Unfortunately she has not started as PCP also prescribed Advair diskus and she had further questions. She denies any visits to urgent care or hospitalizations related to respiratory distress since the last visit. [facility] Medical History (Updated 09/29/24 @ 11:40 by ROMAINE Leigh) Pulmonary nodule Chest pain URI (upper respiratory infection) HTN (hypertension) Cough Heart palpitations Constipation LLQ abdominal pain Anxiety Breast cancer screening Breast pain, left Elevated vitamin B12 level Neck muscle spasm Strain of neck muscle Low back pain Pubic ramus fracture Sore throat Skin tear of upper arm without complication Head injury, acute, without loss of consciousness Fall Dizziness Medication noncompliance due to cognitive impairment RLQ abdominal pain Sinusitis Flu syndrome Precordial chest pain Atypical chest pain Cold intolerance Former smoker Abnormal lung sounds Fever Bilateral calf pain Nausea Left lower quadrant abdominal pain Dysuria Fatigue Lower extremity weakness Aortic stenosis Obstipation Dark stools Lower abdominal pain Gastroenteritis Neck pain on right side Back pain Rhinitis Elevated BP without diagnosis of hypertension Non-rheumatic aortic stenosis Diverticulitis GERD (gastroesophageal reflux disease) Cat scratch Cat bite Epigastric discomfort Diarrhea Nausea Viral syndrome GERD (gastroesophageal reflux disease) Neuropathy Arthritis GERD (gastroesophageal reflux disease) HTN (hypertension) Irritable bowel Heart murmur Surgical History S/P TAVR (transcatheter aortic valve replacement) Hx of esophagogastroduodenoscopy Hx of colonoscopy History of tonsillectomy History of appendectomy Family History Father No problems noted. Mother No problems noted. Social History Household Members: Children Housing: House Are you a primary animal caretaker to a significant other at home: No Do you presently have visiting nurse or other home services: No Alcohol intake: former Patient Tobacco Use Status: Former Tobacco user Tobacco use type: Cigarette e-Cigarette/Vaping Use: Never Used Second Hand Smoke Exposure: No Advance Directives Date on File: 09/21/23 service: No Current occupational status: retired Cognitive needs: No Hearing needs: No Vision needs: Yes (glasses) Review of Systems Const Denies chills, Denies excessive sweating, Denies fever(s), Denies headache(s) and Denies night sweats Eyes Denies dry eyes, Denies irritation and Denies itchy eyes ENT Reports Normal hearing present and Denies headache(s) Card Denies chest pain, Denies chest pain at rest, Denies chest pain with activity, Denies claudication, Denies leg edema, Reports dyspnea on exertion, Denies orthopnea and Denies paroxysmal nocturnal dyspnea Resp Denies chest congestion, Reports cough, Denies excessive phlegm production, Denies pain on inspiration, Denies pain with cough, Reports dyspnea on exertion, Denies stridor and Denies wheezing Musc Denies myalgias Neuro Reports Normal hearing present and Denies headache(s) Endo Denies excessive sweating Pradip/Lymph Denies lymphadenopathy Aller/Immun Denies itchy eyes, Denies seasonal rhinorrhea and Denies wheezing Physical Exam Vital Signs: Last Vital Signs Pulse 93 10/15/24 14:16 BP 120/62 10/15/24 14:16 Pulse Ox 96 10/15/24 14:16 Oxygen Delivery Method Room Air 10/15/24 14:16 BMI result Body Mass Index 29.2 Const General: cooperative, healthy appearing, comfortable, no acute distress, well developed and alert Orientation/consciousness: patient oriented x3 Limitations: no limitations HEENT Head: Yes normal to inspection, Yes normocephalic and Yes atraumatic Ears: hearing grossly normal bilaterally and external ears normal Eyes General: appearance normal, both eyes and all related structures Eyelids: Yes eyelids normal Sclerae: sclerae normal EOM: EOMs intact bilaterally Neck Neck: Yes normal visual inspection and Yes no lymphadenopathy Lymphatic: no lymphadenopathy noted Chest Chest palpation & inspection: normal inspection of the chest Resp Effort & Inspection: normal respiratory effort, able to speak in complete sentences, no audible wheezes, no cough, no stridor, not tachypneic, no tripod positioning and no use of accessory muscles Auscultation: diminished lung sounds Cardio Jugular venous distension: no JVD Rate: regular rate Rhythm: regular rhythm Skin Other: warm, dry General skin exam: no rashes or lesions noted Neuro General: patient oriented x3 Cranial nerves: Yes Normal hearing present Cognition (Neuro): normal cognition Gait exam (Neuro): Normal gait present Extrem General: Yes normal to inspection, Yes capillary refill normal, Yes no clubbing, cyanosis or edema and Yes no pedal edema Psych Appearance: grossly normal and well kempt Speech and movement: Normal speech and movement present and Clear speech present Affect: normal affect Attitude: cooperative Thought process: Normal thought process present Thought content: Normal thought content present Insight: Good insight present (Psych) Judgement: Good judgement present (Psych) Assessment & Plan Assessment & Plan (1) Pulmonary nodule: Code(s): R91.1 - Solitary pulmonary nodule Category: Medical (2) COPD (chronic obstructive pulmonary disease): Code(s): J44.9 - Chronic obstructive pulmonary disease, unspecified Category: Medical Plan Had long discussion regarding medication regimen with patient and son. Discussed either device would be appropriate and she feels the HFA device would be easier to use. Reeducated patient on how to use the device as well as practicing good oral hygiene to prevent thrush. She brought medication to office today and we went step by step how to use and she was able to deliver medication effectively. All questions were answered and patient is in agreement of plan. Will follow up in 6-8 weeks or sooner if needed. Coding Level of Care Code Est Pt Level 4 (81846) Diagnoses Pulmonary nodule R91.1 COPD (chronic obstructive pulmonary disease) J44.9
[2024-10-15 14:16] VITALS: BP 120/62; PULSE 93; O2SAT 96; BMI 29.2
--- OUTSIDE RECORDS SUMMARY | 2024-10-15 15:08 | XMS_ITS | Patient Health Record ---
Author Organization [facility] Address [address] [place] [id number] Care Team Providers Care Television Inspector Name Role Phone Nick Gomez Primary Care Provider Unavailab le Anatoliy Escobar Unavailable [phone] ALLERGIES Allergen (clinical drug ingredient) Drug/Non Drug Allergy documented on EMR Reaction Allergy Type Onset Date Status Sulfa Unknown Drug Allergy Active metronidazole Flagyl Unknown Drug Allergy Act maya amoxicillin / clavulanate Augmentin Unknown Drug Allergy Active garlic (uncoded) Unknown Allergy Act maya RESULTS Component Value Reference Range Notes US abdomen limited Reviewed date:11/23/2023 12:05:43 AM Interpretation: Performing Lab: Notes/Report: [address] [address] Ultrasound Report Signed with Demetra Patient: Bella Henley MR#: [id number] 7 : 1940 Acct:[id number] Age/Sex: 83 / F ADM Date: 11/17/23 Loc: HO.US Attending Dr: Anatoliy Escobar MD Ordering Physician: Anatoliy Escobar Date of Service: 11/17/23 Procedure(s): US abdomen limited Accession Number(s): [id number] cc: Nick Gomez PA-C; Anatoliy Escobar ADDENDUM Please disregard probation counselor inconsistencies in impression of original report regarding the gallbladder. THERE ARE NO GALLSTONES. Addendum Dictated By: Sadie Gutierres MD Addendum Signed By: <Electronically signed by Sadie Gutierres MD in OV> 11/22/23 0849 Addendum Cosigned By: DD/ TD/TT: / EXAMINATION: US ABDOMEN LIMITED CLINICAL INFORMATION: Abnormal findings of blood chemistry. COMPARISON: X-ray abdomen 10/23/2023. CT abdomen and pelvis 10/11/2023. Ultrasound abdomen limited 07/07/2023. X-ray KUB 02/05/2023. Ultrasound abdomen complete 01/27/2023. TECHNIQUE: Real-time imaging of the right upper quadrant abdominal viscera. Limited visualization due to bowel gas. FINDINGS: PANCREAS: Limited visualization of pancreatic tail and head. Imaged portion of pancreatic body is unremarkable. LIVER: Right hepatic 1.6 cm cyst. Right hepatic 1.2 cm cyst. Mildly heterogeneous hepatic echotexture may represent hepatocellular disease. Limited visualization. GALLBLADDER: No gallstones. No gallbladder wall thickening. COMMON BILE DUCT: Normal in caliber measuring 0.5 cm in diameter. RIGHT KIDNEY: No hydronephrosis. No renal calculi. Limited visualization. The kidney measures 10.9 cm in maximum dimension. FREE FLUID: None. ADDITIONAL FINDINGS: Incidental note on limited views of the abdominal aorta infrarenal abdominal aortic aneurysm, better characterized on a CT abdomen and pelvis of 10/11/2023 and measuring 3.0 cm AP and 3.2 cm transverse. US/US abdomen limited IMPRESSION: 1. Right hepatic cysts. 2. Mildly heterogeneous hepatic echotexture may represent hepatocellular disease. 3. Cholelithiasis. 4. Incidental note on limited views of the abdominal aorta infrarenal abdominal aortic aneurysm, better characterized on a CT abdomen and pelvis of 10/11/2023 and measuring 3.0 cm AP and 3.2 cm transverse. Dictated By: Sadie Gutierres MD Signed By: <Electronically signed by Sadie Gutierres MD in OV> 11/20/23 0507 DD/ 0940 TD/TT: Animal Eviscerator: Complete Blood Count no Diff Reviewed date:01/30/2024 11:58:10 AM Interpretation: Performing Lab:[facility], [address] [place] [id number] Notes/Report: White Blood Count 3.9 4.8-10.8 X10*3/uL Red Blood Count 3.55 4.20-5.50 X10*6/uL Hemoglobin 10.4 12.0-16.0 g/dl Hematocrit 32.5 37.0-47.0 % Mean Corpuscular Volume 91.5 80.0-98.0 fL Mean Corpuscular Hemoglobin 29.3 27.0-33.0 pg Mean Corpuscular HGB Conc 32.0 31.0-35.0 g/dl Red Cell Distribution Width 13.6 11.0-16.0 % Platelet Count 145 160-400 X10*3/uL Mean Platelet Volume 11.3 9.4-12.3 fL NRBC Pct Auto 0.0 0.0-0.2 /100WBC NRBC Abs Auto 0.000 0.0-0.012 X10*3/uL Liver Panel Reviewed date:01/30/2024 11:38:45 PM Interpretation: Performing Lab:[address] [id number] Notes/Report: Bilirubin Total 0.6 0.0-1.0 mg/dL Bilirubin Direct 0.2 0.0-0.5 mg/dL Aspartate Amino Transferase 16 5-31 U/L Alanine Aminotransferase 8 0-31 U/L Total Protein 7.4 6.5-8.0 g/dL Albumin Level 4.1 3.5-5.0 g/dL Alkaline Phosphatase 141 39-117 U/L IRON PROFILE Reviewed date:01/30/2024 11:58:22 AM Interpretation: Performing Lab:[facility], [address] [place] [phone] Notes/Report: Iron 60 30-160 mcg/dL Total Iron Binding Capacity 298 228-428 mcg/d L Percent Iron Saturation 20 15-50 % Unsaturated Iron Binding 238 Urine Culture Reviewed date:02/01/2024 12:40:02 PM Interpretation: Performing Lab:[address] [address] Notes/Report: Urine Culture Report Result Urine Culture 10,000 to 50,000 cfu/ml Urine Culture Mixed bacterial jeffrey a characteristic of Urine Culture urogenital contamination. UA ClnCatch+Micro w/rflx Cul t Reviewed date:01/30/2024 11:57:48 AM Interpretation: Performing Lab:[facility], [address] [place] [phone] Notes/Report: Urine, Clean Catch Color Urine Yellow Appearance Urine Cloudy PH 5.0 5.0-9.0 Glucose Urine UA Negative Negative mg/dL Urine Blood Negative Negative Specific Marshall - Urine 1.025 1.005-1.025 Urine Protein Negative Neg-Trace mg/dL Urine Ketones Negative Negative mg/dL Nitrite Urine Negative Negative Leukocyte Esterase Urine Small (1+) Negative RBC Urine 0-2 0-2 /HPF WBC Urine 0-5 0-5 /HPF Squamous Epithelial Cell Urine 0-2 0-2 /HPF Bacteria Urine None Seen None Seen Hyaline Casts Urine 0-2 0-2 /LPF REASON FOR REFERRAL No Information MEDICATIONS Medication SIG (Take, Route, Frequency, Duration) Notes Start Date End Date Status Ondansetron 4 MG 1 tablet on the tong ue and allow to dissolve Orally Every 6 hours as needed for nausea for 30 day(s) 12/13/2022 Active Dicyclomine HCl 10 MG 1 or 2 capsules Or ally Every 6 hours as needed for abdominal discomfort and cramps for 30 day(s) 10/21/2023 Active Stool Softener 100 MG 1 capsule [...] Notes Problem Rectal bleeding (K62.5) Active confirmed 43140563 Problem Diverticulitis of large intestine without perforation or abscess without bleeding (K57.32) Active confirmed 9235297 Problem History of adenomatous polyp of colon (Z86.010) Active confirmed 616788181 Problem Irritable bowel syndrome with diarrhea (K58.0) Active confirmed 238617028 Problem Irritable bowel syndrome without diarrhea (K58.9) Active confirmed 87591499 Problem Elevated liver function tests (R79.89) Active confirmed Elevated liver enzymes level (273512376) Problem Diverticulosis (K57.90) Active confirmed 707765135 Problem Gastroesophageal reflux disease without esophagitis (K21.9) Active confirmed 556718002 Problem Heme + stool (R19.5) Active confirmed 25326636 Problem Hiatal hernia (K44.9) Active confirmed Hiatal hernia (04921691) Problem GERD (gastroesophageal reflux disease) (K21.9) Active confirmed Gastroesophagea l reflux disease (516422417) Problem Abnormal CT scan, sigmoid colon (R93.3) Active confirmed 986837784 Problem Elevated alkaline phosphatase level (R74.8) Active confirmed Alkaline phosphatase raised (910677996) Problem Irritable bowel syndrome with constipation (K58.1) Active confirmed 153080253 Problem Irritable bowel syndrome with both constipation and diarrhea (K58.2) Active confirmed 57111539 Problem LLQ abdominal pain (R10.32) Active confirmed 423838599 Problem Gastroesophageal reflux disease, unspecified whether esophagitis present (K21.9) Active confirmed 727524202 Encounters Encounter Location Date Provider Diagnosis [facility] [address] [place] [phone] 03/06/2024 Anatoliy Escobar [facility] [address] [place] [phone] 03/06/2024 Anatoliy Escobar [facility] [address] [place] [phone] 10/20/2023 Anatoliy Escobar [facility] [address] [place] [phone] 10/30/2023 Anatoliy Escobar [facility] [address] [place] [address] 11/07/2023 Anatoliy Escobar [facility] [address] [place] [phone] 11/15/2023 Anatoliy Escobar Elevated liver function tests R79.89 and Elevated alkaline phosphatase level R74.8 [facility] [address] [place] [phone] 11/21/2023 Anatoliy Escobar [facility] [address] [place] [phone] 12/28/2023 Anatoliy Escobar [facility] [address] [place] [phone] 03/05/2024 Anatoliy Escobar [facility] [address] [place] [phone] 06/14/2024 Anatoliy Escobar ASSESSMENTS Encounter Date Diagnosis Assessment Notes Treatment Notes Treatment Clinical Notes 11/15/2023 Elevated liver function tests (ICD-10 - R79.89) 11/15/2023 Elevated alkaline phosphatase level (ICD-10 - R74.8) PLAN OF TREATMENT Pending Test Test Name Order Date LIVER PROFILE 11/15/2023 CBC w DIFF 09/27/2021 CELIAC PANEL #10 02/24/2017 Future Test Test Name Order Date COLONOSCOPY 07/13/2012 COLONOSCOPY 12/26/2018 UPPER GI ENDOSCOPY 12/07/2022 COLONOSCOPY 12/07/2022 Insurance Providers Payer Name Payer Address Payer Phone Subscriber Number Group Number Insured Name Patient Relationship to Insured Coverage Start Date Coverage End Date MEDICARE OF [place] [address] [place] [address] [id number] BELLA HENLEY Self - patient is the insured [employer] [address] [place] [address] [id number] BELLA HENLEY Self - patient is the insured MEDICAL (GENERAL) HISTORY Medical History History ICD Code Colon and EGD 06-07-2007--no polyps, but diverticulosis; hiatal hernia GERD--EGD in September of 2012 with the finding of a minimal hiatal hernia and gastritis, with biopsies negative for H. pylori and negative for Aldana's esophagus Personal history of colon polyps-tubular adenomas removed in 2003 and 09/2012 Denies MO,DM,CVA,renal disease COPD Colonoscopy 09/2012-small tub ular adenomas removed, mild sigmoid diverticulosis, and small internal hemorrhoids Diverticulitis--Spring [address] [facility]--salty parag with IV antibiotics Colonoscopy 10/[address] [facility]---diverticulos is, nonspecific inflammation EGD 09/[address] [facility] --HH, mild reflux Colonoscopy 06/2019-1 tubular adenoma re moved, diverticulosis EGD 06/2019 small HH, gastritis, neg Hpy carmen, normal duodenal biopsies IBS with constipation/diarrhea vertigo Surgical History Surgery Date(Month/Year) appendectomy tonsillectomy D&C SBO - Surgery with Dr. Roger at [facility] 11/2013
--- OUTSIDE RECORDS SUMMARY | 2024-10-15 15:08 | XMS_ITS | Clinical Summary ---
Author Organization [facility] it Address [address] [place] [address] Care Team Providers Care Teacher Music Name Role Phone Unavailable Primary Care Provider Unavailabl e Social History Tobacco Use Types Packs/Day Years Used Date Smoking Tobacco: Never Assessed Comments Unknown Sex and Gender Information Value Date Recorded Sex Assigned at Not on file Legal Sex Female 7:01 PM EST Gender Identity Not on file Sexual Orientation Not on file Plan of Treatment Health Maintenance Due Date Last Done Comments DTaP,Tdap,and Td Vaccines (1 - Tdap) 1959 Zoster Vaccines (1 of 2) 1990 Pneumococcal Vaccine: 50+ Ye ars (1 of 1 - PCV) 2005 RSV Immunization Patients 60 + Years Old (1 - 1-dose 75+ series) 2015 Depression Screening 10/03/2023 Falls Risk Assessment 10/03/2023 Osteoporosis Screening (Bone Density Screening) 10/03/2023 Social Influencers of Health Screening 10/03/2023 COVID-19 Vaccine ( - 2023-2 5 season) 2024 Influenza Vaccine (#1) 2024 HIB Vaccines Aged Out No longer eligi ble based on patient's age to complete this topic HPV Vaccines Aged Out No longer eligi ble based on patient's age to complete this topic Hepatitis A Vaccines Aged Out No long er eligible based on patient's age to complete this topic Hepatitis B Vaccines Aged Out No long er eligible based on patient's age to complete this topic IPV Vaccines Aged Out No longer eligi ble based on patient's age to complete this topic MMR Vaccines Aged Out No longer eligi ble based on patient's age to complete this topic Meningococcal ACWY Vaccine Aged Out N o longer eligible based on patient's age to complete this topic RSV Immunization Patients Un marilin 20 months Aged Out No longer eligible b ased on patient's age to complete this topic Varicella Vaccines Aged Out No longer eligible based on patient's age to complete this topic Advance Directives Documents on File Type Date Recorded Patient Planning Advisor Expl anation Health Care Decision (hx) 09/07/2023 HE ALTH CARE PROXY Health Care Decision (hx) 03/03/2023 HE ALTH CARE PROXY
--- OUTSIDE RECORDS SUMMARY | 2024-10-15 15:08 | XMS_ITS ---
Author Organization [facility] Address [address] [place] [address] Care Team Providers Care Correction Officer Reformatory Name Role Phone JoseLisaregina Primary Care Provider UnavailKwadwo Redman Unavailable [phone] Julieth Rosa Unavailable [phone] Allergies Allergen (clinical drug ingredient) Drug/Non Drug Allergy documented on EMR Reaction Allergy Type Onset Date Status metronidazole Flagyl Unknown Drug Allergy Act maya Keflex rash Drug Allergy Active Substance with sulfonamide structure and antibacterial mechanism of action (substance) Sulfa Antibiotics Unknown Drug Allergy Active REASON FOR VISIT Open sore, Painful Toe(s) Medications Medication SIG (Take, Route, Frequency, Duration) Notes Start Date End Date Status Azithromycin 250 MG 2 tablets on the first day, then 1 tablet daily for 4 days Orally Once a day for 5 day(s) 11/27/2020 Not-Taking Pristiq 25 MG Orally Once a day Not-Taking Zantac Not-Taking Ranitidine Not-Takin g Beconase AQ Not-Taki ng Pepcid famotidine Not-Takin g PriLOSEC as needed PRN Not-Taking Valsartan 80 MG 1 tablet Orally Once a day Not-Taking Calcium + D Not-Taki ng Flovent HFA Not-Taki ng Mucinex PRN Active CO-Q 10 [place]-3 Fish Oil Not-Taking Aspir-81 Not-Taking CeleXA Not-Taking Valsartan 40 MG 1 tablet Orally Twice a day for 30 day(s) Not-Taking MiraLax PRN Active Dicyclomine HCl Acti ve Flonase PRN Active ALPRAZolam 20 mg 1x aday Activ e Ammonium Lactate 12 % 1 application to affected area Externally to feet Twice a day for 30 days Active Myrbetriq Active Losartan Potassium A ctive Pantoprazole Sodium 40 MG 1 tablet Orally Once a day Active Folic Acid 400 MCG 1 tablet Orally Once a day Active Mirtazapine Active Trileptal Not-Taking Vitamin D3 Active Social History Tobacco Use: Social History Observation Description Date Details (start date - stop date) Never Smoker NA - NA Tobacco use other than smoking: Question Answer Notes Are you an other tobacco user? 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) Active confirmed Response to treatment Problem Acquired hammer toe of left foot (1899363233032956 ) Other hammer toe(s) (acquired), left foot (M20.42) Active confirmed Problem Localized, primary osteoarthritis of the ankle and/or foot (200532805) Arthritis of joint of lesser toe, left (M19.072) Active confirmed Vital Signs Blood pressure systolic 127 mm Hg 10/11/19 25 Blood pressure diastolic 74 mm Hg 025 Height 5 ft 6 in in 10/11/2024 Weight 163 lbs 10/11/2024 BMI 26.31 kg/m2 10/11/2024 Encounters Encounter Location Date Provider Diagnosis [facility] [address] [place] [address] 10/11/2024 Julieth Rosa Ischemic ulcer of le ft foot, limited to breakdown of skin L97.521 ; Other hammer toe(s) (acquired), left foot M20.42 ; Pain in left toe(s) M79.675 ; Arthritis of joint of lesser toe, left M19.072 and Subluxation of metatarsophalangeal joint of toe, initial encounter S93.149A Assessments Encounter Date Diagnosis (ICD Code) Assessment Notes Treatment Notes Treatment Clinical Notes Section Notes 10/11/2024 Ischemic ulcer of le ft foot, limited to breakdown of skin (ICD-10 - L97.521) 10/11/2024 Other hammer toe(s) (acquired), left foot (ICD-10 - M20.42) 10/11/2024 Pain in left toe(s) (ICD-10 - M79.675) 10/11/2024 Arthritis of joint o f lesser toe, left (ICD-10 - M19.072) 10/11/2024 Subluxation of metatarsophalangeal joint of toe, initial encounter (ICD-10 - S93.149A) Plan Of Treatment Next Appt Details Follow Up: as scheduled,To s Dr Hendricks, Reason: Provider Name:Kwadwo Hendricks , 12/27/2024 12:00:00 PM, [address] [place] [address], [phone], Procedure Notes * Category Sub-Category Detail Notes Debride skin< 25 sq cm Open wound ISCHEMIC: Physician of record performed open wound selective debridement of first 25 sq cm or less, of devitilized necrotic/nonviable soft tissue, fibrin, and exudate extending from the epidermis through the dermis, utilizing sharp dissection with sterile 15 blade, and/or tissue nippers. Sterile antibiotic dressing applied, ANESTHESIA was DEFERRED, Pt tolerant to pain, Hemostasis was achieved through direct pressure. Post debridement measurements: 2mm x 2mm x 2mm. Character of the wound post debridement is stable (81613), The patient was instructed on importance of proper wound care consisting of pressure reduction, maintainance of moist wound environment, and regular debridement of devitilized tissue, The patient is to apply Antibiotic Oint. to the wound and cover with a DSD, The patient was instructed to change dressings according to orders or PRN saturation, leaks, The patient was instructed to monitor and report any signs or symptoms of infection or any untoward reactions, The patient is to cont the local wound care as directed till condition is completely healed Progress Notes * EUGENE Bella GDOB:1940 (83 yo F)Acc No.[id number]:10/11/2024 Progress Note Patient:?Bella HENLEY Provider:?Julieth Rosa DPM :1940???Age:83 Y???Sex:Female D ate:10/11/2024 Address:[address] [place], [place] [id number] Pcp:Huma Garcia Subjective: * Chief Complaints: * ???Open sorePainful Toe(s) * HPI: ???Skin problems:?Location:?Top, Left, 3rd, Toe(s).?Treatments:?Topical abx.?Toe pain:?Nature:?tenderness.?Location:?Left foot, 3rd toe.?Duration:?, several weeks.?Course:?worse.?Aggravated by:?any pressure, shoes.?Treatments:?rest/alter normal daily activity, change in shoes.? * ROS:?General/Constitutional:?Nausea?denies.?Vomiting?denies.?Hunger Thirst?denies.?Loss appetite?denies.?Chills?denies.?Fatigue?denies.?Fever?denies.?Night Sweats?denies.?Unexplained weight loss?denies.?Unexplained weight gain?denies.?HEENTM:?Dentures?denies.?Dizziness?denies.?Glasses/contacts?admits.?Retinopathy?de nies.?Blurred/double vision?denies.?TMJ?denies.?Discharge/drainage?denies.?Implants?denies.?Sore throat?denies.?Dental implants?denies.?Hard of hearing ?denies.?Difficulty chewing/swallowing/speaking?denies.?Nose bleeds?denies.?Sore mouth?denies.?Respiratory:?On Oxygen?denies.?Pneumonia/pleurisy?denies.?Bronchitis?denies.?Emphysema?denies.?C oughing?denies.?Cough blood?denies.?Shortness of breath?denies.?Wheezing?denies.?Cardiovascular:?Pacemaker?denies.?MVP?denies.?WPW?denies.?CHF?denies.?Heart attack?denies.?Septal defect?denies.?Rapid beat?denies.?Chest pain ?denies.?Atrial Fib.?denies.?Murmur/Palpitations?denies.?Gastrointestinal:?Hemorrhoids?denies.?Stomach/Abdominal pain?denies.?Dark blood stool?denies.?Irritable bowel ?denies.?Constipation?denies.?Diarrhea?denies.?Hematology:?Swelling?denies.?Clots?denies.?Varicose Veins?denies.?Bruising?denies.?Bleeding problem?denies.?Genitourinary:?Blood urine?denies.?Frequent/Painfu/urination/bladder control?denies.?Kidney stones?denies.?Infection (UTI)?denies.?Nephropathy?denies.?sex trans dis (STD)?denies.?Prostate?denies.?Musculoskeletal:?Hammertoes?admits.?Bunions?denies.?Back Pain?denies.?Muscle Cramps/ Resting?denies.?Muscle cramps / walking?denies.?Generalized aches and pains?denies.?Weakness?denies.?Integ.:?Perez?denies.?Scars?denies.?Corns/calluses?admits.?Ingrown nails?admits.?Painful nails?admits.?Open Sores?denies.?Rashes?denies.?Neurologic:?Difficulty sleeping?denies.?Brain disorder?denies.?Numbness?denies.?Balance trouble?denies.?Confusion?denies.?Fainting/blackouts?denies.?Tingling?denies.?Tr emors?denies.? * Medical History:? 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 * Social History:?Tobacco Use:?Tobacco use other than smoking?Are you an other tobacco user??No ?Tobacco Control (Standard)?Tobacco use:?Nonsmoker ?Additional Findings: Tobacco non-user?Current nonsmoker ???Miscellaneous:?Caffeine: yes, frequency: rarely usually decaff. ?Children: yes. ?Exercise: no. ?Marital status: single, . 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 * Medications:?TakingVitamin D 3 Mirtazapine Myrbetriq Losartan Potassium Pantoprazole Sodium 40 MG Tablet Delayed Release 1 tablet Orally Once a day Folic Acid 400 MCG Tablet 1 tablet Orally Once a day MiraLax , Notes to Pharmacist: PRNDicyclomine HCl Flonase , Notes to Pharmacist: PRNALPRAZolam , Notes to Pharmacist: 20 mg 1x adayAmmonium Lactate 12 % Cream 1 application to affected area Externally to feet Twice a day Mucinex , Notes to Pharmacist: PRNTaking Vitamin D3 Taking Mirtazapine Taking Myrbetriq Taking Losartan Potassium Taking Pantoprazole Sodium 40 MG Tablet Delayed Release 1 tablet Orally Once a day Taking Folic Acid 400 MCG Tablet 1 tablet Orally Once a day Taking MiraLax , Notes to Pharmacist: PRNTaking Dicyclomine HCl Taking Flonase , Notes to Pharmacist: PRNTaking ALPRAZolam , Notes to Pharmacist: 20 mg 1x adayTaking Ammonium Lactate 12 % Cream 1 application to affected area Externally to feet Twice a day Taking Mucinex , Notes to Pharmacist: PRNNot-Taking/PRNTrileptal CO-Q 10 [place]-3 Fish Oil Aspir-81 CeleXA Valsartan 40 MG Tablet 1 tablet Orally Twice a day Pepcid , Notes to Pharmacist: famotidinePriLOSEC as needed , Notes to Pharmacist: PRNValsartan 80 MG Tablet 1 tablet Orally Once a day Calcium + D Flovent HFA Azithromycin 250 MG Tablet 2 tablets on the first day, then 1 tablet daily for 4 days Orally Once a day Pristiq 25 MG Tablet Extended Release 24 Hour Orally Once a day Zantac Ranitidine Beconase AQ Medication List reviewed and reconciled with the patientNot-Taking/PRN Trileptal Not-Taking/PRN CO-Q 10 [place]-3 Fish Oil Not-Taking/PRN Aspir-81 Not-Taking/PRN CeleXA Not-Taking/PRN Valsartan 40 MG Tablet 1 tablet Orally Twice a day Not-Taking/PRN Pepcid , Notes to Pharmacist: famotidineNot-Taking/PRN PriLOSEC as needed , Notes to Pharmacist: PRNNot- Taking/PRN Valsartan 80 MG Tablet 1 tablet Orally Once a day Not-Taking/PRN Calcium + D Not-Taking/PRN Flovent HFA Not-Taking/PRN Azithromycin 250 MG Tablet 2 tablets on the first day, then 1 tablet daily for 4 days Orally Once a day Not-Taking/PRN Pristiq 25 MG Tablet Extended Release 24 Hour Orally Once a day Not-Taking/PRN Zantac Not-Taking/PRN Ranitidine Not-Taking/PRN Beconase AQ Medication List reviewed and reconciled with the patient * Allergies:?Keflex: rashSulfa AntibioticsFlagylyes[Allergies Verified] Objective: * Vitals:?Ht: 5 ft 6 in, Wt: 1 63, BMI: 26.31, Shoe size: 11, BP: 127/74 mm Hg, Ht- cm: 167.64 cm, Wt-k.94 kg. * Examination: ???Dermatologic: ?ULCER:? LOCATION, dorsal DIPJ T 2?LEFT, SIZE, 2mm X 2mm X 2mm, BASE, granular, RIM, hyperkeratotic, UNDERMINING, absent, TRACKING, Full thickness breakdown of skin, DRAINAGE, serosanguineous, mild, NECROTIC TISSUE, loosely-adherent, yellow slough, MALODOR, absent, CALOR, absent, ERYTHEMA, absent, PAIN ON PALPATION, present.?Orthopedic: ?DIGITAL DEFORMITIES:?Digital contracture, PIPJ, 2-5 B/L, incompl-reducible with WB, or to push-up test, no over, nor underlapping, Digital contracture, DIPJ, incompl-reducible with WB or to push-up test, MPJ Contracture/Dorsal subluxation, T2.?FOOTWEAR:? shoe gear properties exacerbate patients foot/toe deformity.?Vascular: ?DP PULSES (B):?0/4, RIGHT, 1/4, LEFT.?PT PULSES (B):? 0/4, B/L.?CAPILLARY FILL TIME:? delayed, all digits, B/L.?TROPHIC CONDITION-TEXTURE/ELASTICITY/TURGOR/HAIR GROWTH (B):? decreased,?with sparse to absent hair growth, B/L.?TEMPERTURE GRADIENT (C):? decreased, cool to cool, proximal to distal, B/L.?PIGMENTATION:? mottled, B/L.?EDEMA (C):?absent, B/L.?CLAUDICATION (C):?denies, B/L.?REST PAIN:?denies, B/L.?General Examination: ?GENERAL APPEARANCE:?Reveals a pleasant, alert, well nourished, well- developed, well hydrated individual, who demonstrates proper attention to hygiene/body habitus, and is in no acute distress, Pt serves as own historian for office visit today.?ORIENTED:?person, place, and time.?FOOT EXAM:?Footwear Evaluation?Neurological: ?SENSORY:?Neurological exam reveals intact sensorium, pain sensation normal, vibration sensation intact, pinprick sensation is normal in the lower extremities, Pt denies, anesthesia, burning, paresthesia, tingling, B/L.? Assessment: * Assessment: 1.?Other hammer toe(s) (acqu ired), left foot - M20.42 (Primary)???2.?Ischemic ulcer of left foot, limited to breakdown of skin - L97.521???3.?Pain in left toe(s) - M79.675???4.?Arthritis of joint of lesser toe, left - M19.072? ?5.?Subluxation of metatarsophalangeal joint of toe, initial encounter - S93.149A??? Plan: * Treatment: * Procedures:?Debride skin< 25 sq cm:?Open wound?ISCHEMIC: Physician of record performed open wound selective debridement of first 25 sq cm or less, of devitilized necrotic/nonviable soft tissue, fibrin, and exudate extending from the epidermis through the dermis, utilizing sharp dissection with sterile 15 blade, and/or tissue nippers. Sterile antibiotic dressing applied, ANESTHESIA was DEFERRED, Pt tolerant to pain, Hemostasis was achieved through direct pressure. Post debridement measurements: 2mm x 2mm x 2mm. Character of the wound post debridement is stable (91572), The patient was instructed on importance of proper wound care consisting of pressure reduction, maintainance of moist wound environment, and regular debridement of devitilized tissue, The patient is to apply Antibiotic Oint. to the wound and cover with a DSD, The patient was instructed to change dressings according to orders or PRN saturation, leaks, The patient was instructed to monitor and report any signs or symptoms of infection or any untoward reactions, The patient is to cont the local wound care as directed till condition is completely healed.? * Procedure Codes:?79274 ACTIV E WOUND CARE/20 CM OR <, Modifiers: XS * Preventive Medicine:? ??Counseling:?Discussion:?-13: Office or other outpatient visit for the evaluation and management of an established patient, which required a medically appropriate history and/or examination and LOW level of DECISION MAKING for: 1 STABLE ACUTE UNCOMPLICATED PROBLEM, 2 OR MORE MINOR PROBLEMS, OR 1 STABLE CHRONIC PROBLEM, THAT POSE(S) A LOW RISK FOR MORBIDITY/MORTALITY. The visit on the day of the encounter encompassed interpreting the data and educating the patient as to the nature of their condition, treatment options available according to their individual PMH, meds, allergies, and overall health/living conditions, as well as any potential risks or complications that may occur from a failure to adhere to, and participate in, the recommended course of therapy. The discussion included a complete verbal, and/or written explanation of the examination results, any x-rays taken, the proposed diagnosis, and outline of the treatment plan. A schedule for future care needs was also explained. The patient verbalized an understanding of the instructions at this time and agreed to be an active participant in their treatment. If the patient should think of any questions or concerns after the visit, I have encouraged the patient to call the office.?Digital Surgery:?Digital surgery was discussed with the patient, including the risks of surgery(below), vs not having surgery (persistent pain, deformity, risk for skin ulceration/infection, loss of toe), the potential surg complications, the anesthesia, and the usual post-op course. No guarentees were given. We discussed the potential procedure complications including, but not limited to: pain, swelling, bleeding, scarring, numbness, infection, delayed/non healing, floppy/unstable/shorthened toe, recurrence, failure of the procedure, overcorrection leading to plantarflexed/downward positioned toe, recurrence, need for further surgery, as well as the possibility for loss of the toe itself. We discussed the use of local anesthesia, and the usual post-op course for healing. No guarentees were given. The patient verbally indicated a full understanding of the above conversation, and any other of their questions were answered to their satisfaction. Alternatives to the procedure were also discussed, including conservative care. I also discussed the usual post-operative course and gave no guarantees regarding outcome, We elected to try conservative treatment at the present time, due to the patients age, medical history, and circulatory constraints, dispensed gel toe sleeve.?Digital Treatment:?HT- I explained to the patient the possible etiologies of Hammertoes, including genetics/foot type/shoegear/activity level/exercise routine and the risks/benefits of all the different treatment options for their pain including: No treatment at all, Rest, Ice, New/supportive/wider/deeper Shoe gear, Digital Padding/Strapping/Taping/Bracing/Gel protective sleeves, Foot/Ankle AFO Bracing, Stretching exercises, Deep Tissue Massage, Arch support/shoe inserts with splay metatarsal padding, and Custom orthoses. I insisted that any digital devices be removed daily and not worn overnight for safety. The patient is to carefully examine the toes daily for any skin irritation while using any splinting or padding device. The advantages and disadvantages of each option were discussed and the patients questions re: shoe gear, padding, custom vs prefabricated inserts, activity level, and consistency in home treatment regimens for optimal success were answered to their verbally confirmed satisfaction.?Shoe Gear Counseling:?The patient and I reviewed the types of shoes they should be wearing. My recommendation included obtaining a well-fitted shoe with a good supportive, non-foldable nor twistable sole, plenty of toe/room for the forefoot, and proper arch support. Based on todays examination, I recommended the patient look for new shoes, by having their feet professionally measured. We discussed that generally the best time of the day for a shoe fitting is the afternoon. Different shoes types and brands to best match the patients occupation and vocation were discussed. Specific brand selection will be up to the patient, their individual foot condition/deformities, and fit. The patient and I reviewed the standard new shoe break in period by wearing them for a few hours a day while checking for redness or sores as wear time is increased. The patient verbally confirmed to understanding the information discussed.?Ulcer:?A detailed plan of care was reviewed with the patient. We emphasized the fact that the patient takes on an active participating role in the treatment process and emphasized to them that they are an included, valued, and important member of the wound healing team in order to reach an expedient successful outcome. The patient agreed to follow their medically recommended diet while increasing their protein intake if safely able to do so, maintain proper bodily hydaration, abide by weight-bearing restrictions at all times, quit all current smoking habits if any, and diligently follow any/all dressing change instructions. It was clearly made known to the patient that if they fail to do their part, they will likely extend their course of treatment as well as possibly increase their risk of adverse events including amputation. The patient was instructed on importance of proper wound care consisting of pressure reduction, and proper maintainance of a moist wound environment. The patient is to cleanse the wound with warm soapy water/peroxide/saline, or betadine BID based on product availability. The patient is to apply ( Neosporin, Polysporin, or Triple, ) Antibiotic to the wound and cover with a DSD as directed. The patient was instructed to change dressings according to orders, or PRN saturation, leaks. The patient was instructed to monitor and report any signs or symptoms of infection or any untoward reactions. Precautions Taken: Offloading/Pressure reduction via rest/ limited activity to essential to daily life only, cane/ crutches/ walker/ knee scooter/ wheel chair, shoe modification, accommodative padding, sharp debridement, and take/apply medication as directed. THE GOALS of wound debridement to remove devitilized tissue, decrease risk for infection, promote wound healing and prevent further complication were discussed/reviewed. Debridement frequency as indicated.? ??Screening/Special Tests:?Fall Risk?Screening:?No falls in the past year ?FALLS: Screening for Future Fall Risk?Have you had any falls with injury in the past year??No * Follow Up:?as scheduled,To [facility] Hendricks * Images: * Sign off status: Completed true * Provider:?Julieth Rosa DPM Date:?03/2025 Generated for José Luis bryan/Elizabeth/Marquise on:?10/15/2024 03:08 PM EST History and Physical Notes * HPI (History of Present Illness) Category Sub-Category Detail Notes Category Not es Toe pain Nature: tenderness Location: Left foot, 3rd toe Duration: , several weeks Course: worse Aggravated by: any pressure, shoes Treatments: rest/alter normal da tab activity, change in shoes Skin problems Location: Top, Left, 3rd, Toe(s) Treatments: Topical abx Examination Category Sub-Category Detail Notes Category Not es Neurological SENSORY: Neurological exa m reveals intact sensorium, pain sensation normal, vibration sensation intact, pinprick sensation is normal in the lower extremities, Pt denies, anesthesia, burning, paresthesia, tingling, B/L Dermatologic ULCER: LOCATION, dorsal DIPJ T 2 LEFT, SIZE, 2mm X 2mm X 2mm, BASE, granular, RIM, hyperkeratotic, UNDERMINING, absent, TRACKING, Full thickness breakdown of skin, DRAINAGE, serosanguineous, mild, NECROTIC TISSUE, loosely-adherent, yellow slough, MALODOR, absent, CALOR, absent, ERYTHEMA, absent, PAIN ON PALPATION, present Orthopedic FOOTWEAR: shoe gear proper ties exacerbate patients foot/toe deformity DIGITAL DEFORMITIES: Digital contracture , PIPJ, 2-5 B/L, incompl-reducible with WB, or to push-up test, no over, nor underlapping, Digital contracture, DIPJ, incompl-reducible with WB or to push-up test, MPJ Contracture/Dorsal subluxation, T2 General Examination GENERAL APPEARANCE: Reveals a pleasant, alert, well nourished, well-developed, well hydrated individual, who demonstrates proper attention to hygiene/body habitus, and is in no acute distress, Pt serves as own historian for office visit today FOOT EXAM: Lower Extremity Neurological Exa m performed:: Yes Visual exam of foot performed:: Yes Date: 10/11/2024 ORIENTED: person, place, and t truong Footwear Evaluation Footwear Evaluation performe d:: Yes Vascular DP PULSES (B): 0/4, RIGHT, 1/4, LEFT PT PULSES (B): 0/4, B/L CAPILLARY FILL TIME: delayed, all digits , B/L TEMPERTURE GRADIENT (C): decreased, cool to cool, proximal to distal, B/L TROPHIC CONDITION-TEXTURE/ELASTICITY/TURGOR/HAIR GROWTH (B): decreased, with sparse to absent hair gr owth, B/L EDEMA (C): absent, B/L CLAUDICATION (C): denies, B/L REST PAIN: denies, B/L PIGMENTATION: mottled, B/L
--- OUTSIDE RECORDS SUMMARY | 2024-10-15 15:08 | XMS_ITS | Data Portability ---
Author Organization [facility], Home Service Address [address] [place] [address] Assessment No assessment recorded. Plan of Treatment Reminders Order Date Submit Date Provider Last Modified By Organization Details Last Modified Time Details Appointments None recorded. Lab BMP, blood [address] [facility], [address] [place] [address], [facility] [address], [place], [address], 9 07:42:19 lipid panel, blood [address] [facility], [address] [place] [address], [address], [place], [address], 9 07:42:20 Referral None recorded. Procedures None recorded. Surgeries None recorded. Imaging None recorded. Medication Orders metoprolol succinate ER 25 mg tablet,exte nded release 24 hr 2018 0[address] [id number], [address], [place], [id number], 9 11:15:40 Zithromax Z-Rajesh 250 mg tablet 2018 019 [facility], [address], [place], [id number], 9 11:53:23 Cipro 500 mg tablet 2018 019 [facility], [address], [place], [id number], 9 11:53:38 Patient Targets Encounter Date Encounter Id Patient Goals Patient Target Last Modified By Organization Details Last Modified Time Call therapist to schedule counseling marilynn Not available 09/26/2018 11:54:07 Patient Instructions Encounter Date Encounter Id Patient Instructions Last Modified By Organization Details Last Modified Time 09/21/2018 [id number] Relaxation, reconsider escitalopram- will review at f/u next week to avoid dual med starting together marilynn Not available 09/21/2018 15:27:44 09/26/2018 [id number] pulse oximetry* marilynn Not available 09/26/2018 11:54:08 10/08/2018 [id number] Acute Sinusitis: Care Instructions marilynn Not available 10/08/2018 11:28:17 pulse oximetry* marilynn Not available 10/08/2018 11:28:17 12/04/2018 [id number] pulse oximetry* marilynn Not available 12/04/2018 12:22:51 Reason for Referral None Reported. Results Created Date Observation Date Name Description Value Unit Range Abnormal Flag Note LastModifiedBy Organization Detail LastModifiedTime 09/26/19 19 09/26/2018 pulse oxime try* Result 96 Not Available [facility] [address], [address], 09/26/2018 11:15:30 10/08/19 19 10/08/2018 pulse oxime try* Result 97 Not Available [facility] [address], [address], 10/08/2018 11:18:00 12/05/19 19 12/04/2018 pulse oxime try* Result 97 Not Available [facility] [address], [address], 12/04/2018 11:55:20 Result Notes None recorded. Problems Name Problem SNOMED Code Status Onset Date Resolution Date Notes Provider Name and Address Organization Details Recorded Time Abdominal aortic aneurysm 852362475 Active 2017 Samina Lama NP, [address] [place], [address], [facility] 8 13:58:39 Diverticul itis 423260562 Active 2017 Tainaronnell Hanson [facility] 8 16:58:14 Chronic obstructiv e pulmonary disease 47903328 Active 2017 [facility] 8 16:58:22 Aortic valve stenosis 63836504 [facility] 8 16:58:36 Anxiety 34304102 Active [facility] 8 16:58:45 Cystocele 018987748 Active [facility] 8 16:58:58 Problem Notes None recorded. Medical Equipment None Reported. Allergies Allergen ID Allergen Name Allergen Category Reaction Reaction Severity Criticality Documentation Date Start Date Code Code System Note Provider Name and Address Organization Details Recorded Time 1547 Substance with sulfonami de structure and antibacte rial mechanism of action (substanc e) medicatio n Not available Not available Not available 02/06/2018 09542 8003 SNOMED Tainaronnell Hanson [facility] 8 16:57:43 1548 Keflex medicatio n Not available Not available Not available 02/06/2018 7 RxNorm Tainaronnell Hanson [facility] 8 16:57:55 2328 Flagyl medicatio n other moderate Not available 05/29/201871173 6 RxNorm Tainaronnell Hanson [facility] 8 11:44:55 2717 metoprolo l Not available chest pain Not available Not available 09/21/2018 6918 RxNorm Tainaronnell Hanson [facility] 9 16:31:23 Medications Name Sig Start Date Stop Date Status Note LastModified by Organization Details LastModified Time neomycin-navdeep ymyxin-hydro viet 3.5 mg/mL-10,000 unit/mL-1 % ear solution 05/25 completed Not Available Not Available Not Available azithromycin 250 mg tablet TAKE 2 TABLETS (500 MG) BY ORAL ROUTE ONCE DAILY FOR 1 DAY THEN 1 TABLET (250 MG) BY ORAL ROUTE ONCE DAILY FOR 4 DAYS 12/04 completed Not Available Not Available Not Available valacyclovir 1 gram tablet 02/07 completed Not Available Not Available Not Available sucralfate 1 gram tablet 02/07 completed Not Available Not Available Not Available ciprofloxaci n 500 mg tablet Take 1 tablet every 12 hours by oral route. 12/04 completed Not Available Not Available Not Available omeprazole 40 mg capsule,harjit yed release 02/07 completed Not Available Not Available Not Available alprazolam 0.25 mg tablet TAKE 1 TABLET BY MOUTH THREE TIMES DAILY NEEDED active Not Available Not Available No t Available dicyclomine 20 mg tablet 12/04 completed Not Available Not Available Not Available ranitidine 150 mg tablet 2 Po QD active Not Available Not Available Not Available omeprazole 20 mg capsule,harjit yed release 02/07 completed Not Available Not Available Not Available metoprolol succinate ER 25 mg tablet,exten ded release 24 hr Take 1 tablet every day by oral route. 09/26 completed Not Available Not Available Not Available methylpredni solone 4 mg tablets in a dose pack 12/04 completed Not Available Not Available Not Available fluticasone propionate 50 mcg/actuatio n nasal spray,suspen alexander active Not Available Not Available Not Available dicyclomine 10 mg capsule 05/16 completed Not Available Not Available Not Available neomycin 3.5 mg/g-polymyx in B 10,000 unit/g-dexam eth 0.1 % eye oint 05/16 completed Not Available Not Available Not Available Estrace 0.01% (0.1 mg/gram) vaginal cream 02/07 completed Not Available Not Available Not Available escitalopram 10 mg tablet Take 1 tablet every day by oral route. active Not Available Not Available No t Available Vitals Date Recorded Body height Heart rate Oxygen saturation Oxygen saturation in Arterial blood by Pulse oximetry Systolic blood pressure Diastolic blood pressure Provider Name and Address Organization Details Last Updated DateTime 9 168.91 cm 97 /min 97 % 97 % 128 mm[Hg] 84 mm[Hg] Taina Hanson [facility] 9 14:32:26 Date Recorded Body height Heart rate Oxygen saturation Oxygen saturation in Arterial blood by Pulse oximetry Systolic blood pressure Diastolic blood pressure Provider Name and Address Organization Details Last Updated DateTime 9 168.91 cm 90 /min 96 % 96 % 124 mm[Hg] 80 mm[Hg] Eunice Molina [facility] 9 11:17:24 Date Recorded Body height Oxygen saturation Oxygen saturation in Arterial blood by Pulse oximetry Heart rate Body temperature Systolic blood pressure Diastolic blood pressure Provider Name and Address Organization Details Last Updated DateTime 9 168.91 cm 97 % 97 % 112 /min 98.2 [degF] 142 mm[Hg] 86 mm[Hg] Tainaronnell Hanson [facility] 9 11:17:37 Date Recorded Heart rate Provider Name an d Address Organization Details Last Updated DateTime 10/08/2018 84 /min Samina Lama NP, [address] [place], [address], [facility] 10/08/2018 11:28:37 Date Recorded Body height Heart rate Oxygen saturation Oxygen saturation in Arterial blood by Pulse oximetry Systolic blood pressure Diastolic blood pressure Provider Name and Address Organization Details Last Updated DateTime 9 168.91 cm 105 /min 98 % 98 % 140 mm[Hg] 80 mm[Hg] [facility] 9 11:45:01 Date Recorded Heart rate Provider Name an d Address Organization Details Last Updated DateTime 10/19/2018 80 /min Samina Lama NP, [address] [place], [address], [facility] 10/19/2018 12:04:58 Date Recorded Body height Body mass index (BMI) Body weight Oxygen saturation Oxygen saturation in Arterial blood by Pulse oximetry Heart rate Systolic blood pressure Diastolic blood pressure Provider Name and Address Organization Details Last Updated DateTime 9 168.91 cm 31.1 kg/m2 10345.6 7 g 97 % 97 % 97 /min 120 mm[Hg] 90 mm[Hg] Dahiana Ha [facility] 9 11:56:24 Social History Question Answer Notes LastModified by Organizat ion Details LastModified Time Tobacco Smoking Status Former Smoker Not Available [facility] 07/07/2020 03:36:24 What Was The Date Of Your Most Recent Tobacco Screening? 12/04/2018 [id number] Information not available 07/07/2020 Sex: Unknown Functional Status None recorded. Mental Status None recorded. Family History Nothing Reported. Medical History Condition Response Coronary Artery Disease N Gout N Other N Kidney Stones N Blood Diseases N Blood Transfusion N Breast Cancer N COPD N Depression N Lung Disease N Defects or Inherited Disease N Anxiety Disorder N Muscle, Joint, or Bone Problems N Obesity N Vision or Eye Problems N Arthritis N Polyps N Infertility N Mental Disorder N Cancer N Varicosities N Stroke N Endometriosis N Bladder or Kidney Problems N High Cholesterol N Liver Disease N Headaches N Fibromyalgia N Kidney Disease N Allergies/Hayfever N Heart Problems N Hospitalizations N Thyroid Problems N GI Problems N Eating Disorder N Skin Problems N Anemia N MRSA exposure N Constipation N Mental Illness N Diabetes N Ovarian Cancer N Seizures/Epilepsy N Tuberculosis N Congestive Heart Failure (CHF) N Eczema N Abuse/Domestic Violence N Diverticulitis N Asthma N Reflux/GERD N Hepatitis N Heart Disease N Pulmonary Embolism N Hypertension N Chicken Pox N Autism Spectrum Disorder (ASD) N Osteoporosis N Gynecological HistoryNo gynecological history recorded. Obstetrics History GPAL:G 0 P 0 0 0 0 Immunizations Vaccine Type Date Status Note Provider Nam e and Address Organization Details Recorded Time Influenza, split virus, quadrivalent, preservative 8 completed Eunice damon [facility] 09/26/2018 11:16:26 Past Encounters Encounter ID Performer Location Encounter Start Date Encounter Closed Date Diagnosis/Indication Diagnosis SNOMED-CT Code Diagnosis ICD10 Code Diagnosis Note [id number] Samina Lama NP, S [facility] [address] [facility],[place] [address] 02/07/2018 11:02:27 02/07/2018 16:46:02 Anxiety 97102436 F41.9 Nail changes 273895006 L 60.9 Abdominal aortic aneurysm 755610894 I71.4 CT 11/2017, no changes 2016, 2.85 cm Aortic david nosis, non-rheumatic 491529916 I35.0 stable Gastroesop hageal reflux disease 478098464 K21.9 d/c yajaira mints, call if persists Insomnia 087182885 G47.0 0 review proper sleep hygiene be more active during day avoid naps [id number] Samina Lama NP, S [facility] [address] [facility],[place] [address] 03/16/2018 11:29:23 03/20/2018 08:12:01 Dehydration 79230823 E86.0 Gastroenteritis 69972983 K52.9 Aortic valve stenosis 60 981377 I35.0 stable, follow [id number] Samina Lama NP, S [facility] [address] [facility],[place] [address] 05/16/2018 13:23:14 05/16/2018 14:06:44 Anxiety 16852645 F41.9 BID lorazepam helps Aortic valve stenosis 60 908470 I35.0 stable, echo 05/31/2017 Active or passive immunization 425971596 Z23 Abdominal aortic aneurysm 200623907 I71.4 CT 11/2017, no changes 2016, 2.85 cm Chronic ob structive pulmonary disease 82726085 J44.9 Non smoker X years, asymptomat ic Diverticular disease 397 266110 K57.90 no recent flare [id number] Samina Lama NP, [facility] [address] [facility],[place] [address] 05/29/2018 11:40:58 05/29/2018 16:52:51 Aortic valve stenosis 49737298 I35.0 stable, echo 05/31/2017 Anxiety 85735828 F41.9 BID lorazepam helps, discussed current fears re: Constipation 19964775 K5 9.00 [id number] Samina Lama NP, S [facility] [address] [facility],[place] [address] 08/14/2018 11:20:27 08/14/2018 17:00:16 Anxiety 62068119 F41.9 BID lorazepam helps, discussed current fears Aortic valve stenosis 60 964316 I35.0 stable, echo 05/31/2017 Diverticulitis 553821604 K57.92 Increased frequency of urination 760442654 R35.0 [id number] Samina Lama NP, S [facility] [address] [facility],[place] [address] 08/20/2018 11:12:33 08/20/2018 12:20:46 Anxiety 43630258 F41.9 BID alprazolam helps, discussed current fears Diverticulitis 885111457 K57.92 Aortic valve stenosis 60 157469 I35.0 stable, echo 05/31/2017 Family problems 67434708 4 Z63.79 Suggest therapy, names provided. Pt agrees [id number] Samina Lama NP, S [facility] [address] [facility],[place] [address] 09/12/2018 10:19:31 09/12/2018 20:18:16 Abdominal aortic aneurysm 366262942 I71.4 CT 11/2017, no changes 2016, 2.85 cm Chronic ob structive pulmonary disease 42896356 J44.9 Non smoker X years, asymptomat ic Anxiety 68545760 F41.9 BID alprazolam helps, discussed current fears Aortic valve stenosis 60 776020 I35.0 stable, echo 05/31/2017 [id number] Samina Lama NP, [facility] [address] [facility],[place] [address] 09/21/2018 14:26:58 09/25/2018 11:17:00 Anxiety 97693425 F41.9 discussed current fears again, see below Aortic valve stenosis 60 034482 I35.0 [id number] Samina Lama NP, S [facility] [address] [facility] [place] [address] 09/26/2018 11:12:05 09/26/2018 13:02:53 Hypertensive disorder 63426152 I10 Chronic ob structive pulmonary disease 65537739 J44.9 Non smoker X years, asymptomat ic Anxiety 49919283 F41.9 discussed current fears again, see below Aortic valve stenosis 60 168000 [place] [id number] Samina Lama NP, [facility] [address] [facility] [place] [address] 10/08/2018 11:12:38 10/08/2018 14:35:10 Cough 29151653 R05 Acute sinusitis 47009090 J01.90 Anxiety 17875465 F41.9 revisited [id number] Samina Lama NP, S [facility] [address] [facility] [place], [place] [address] 10/19/2018 11:41:00 10/19/2018 12:37:34 Diverticulitis 017599111 K57.92 Intolerant Flagyl Anxiety 13841269 F41.9 revisited Aortic valve stenosis 60 301057 I35.0 asymptomat ic Abdominal aortic aneurysm 566592898 I71.4 CT 11/2017, no changes 2016, 2.85 cm Chronic ob structive pulmonary disease 53005148 J44.9 Non [place] [id number] Samina Lama NP, S [facility] [address] [facility] [place] [address] 12/04/2018 11:49:58 12/04/2018 16:03:42 Chronic obstructive pulmonary disease 87360503 J44.9 Non smoker X years, asymptomat ic Anxiety 69940794 F41.9 revisited Aortic valve stenosis 60 940385 I35.0 asymptomat ic Health Concerns Section Related Observation LastModified by Organization Detai ls LastModified Time None Recorded Concern Status LastModified by Organization Details LastModified Time None Recorded Advance Directives Directive None Recorded Payers Encounter Date Sequence Insurance Name Policy Number Policy Berry Covered Member ID Berry Member ID Guarantor Name 09/21/2018 2 [facility] [id number] Bella Knappel [id number] Bella Essex 09/21/2018 1 MEDICARE [place]: [employer] Bella Henley [id number] Bella Henley 09/26/2018 2 [facility] [id number] Bella Keith Kale [id number] Bella Henley 09/26/2018 1 MEDICARE [place]: [employer] Bella Henley [id number] Bella Henley 10/08/2018 2 [facility] [id number] Bella Henley [id number] Bella Henley 10/08/2018 1 MEDICARE B-[place]: [facility] Bella Henley [id number] Bella Henley 10/19/2018 2 [facility] [id number] Bella Henley [id number] Bella Henley 10/19/2018 1 MEDICARE B-[place]: [facility] Bella Henley [id number] Bella Henley 12/04/2018 2 [facility] [id number] Bella Henley [id number] Bella Henley 12/04/2018 1 MEDICARE B-[place]: [facility] Bella Henley [id number] Bella Henley Notes Date Note Type Note Provider Name a nd Address Organization Details Recorded Time 09/21/2018 text/html Here with concer ns BP had panic attack this am, ambulance was called Checked BP after pts episode was 158/101 Did not start escitalopram prescribed last week , under a great deal of stress Samina Lama NP, [address] [place], [address], [facility] 09/21/2018 15:27:56 09/26/2018 text/html see previous not e ( visit 09/21/18 ) , unable to start metoprolol ? reaction pharmacy called- stating reaction in past . Was given in hospital years ago & had some heart problem cannot remember today home BP 124/80 Remains stressed with ( went to ER again in ambulance ) and son who lives with pt. trying to relax, went to hair dressers yesterday Has not contacted therapist No dizziness/CP/SOB/pa lpitations or edema Monday slipped on Ice-landed on buttocks, was able to get self up now feels ok Able to complete ADL's Samina Lama NP, [address] [place], [address], [facility] 09/26/2018 11:54:50 10/08/2018 text/html Same day visit coughing X 6 days tried to get in to see ENT, usually when feels like this , has sinus infection-but they were unable to see no fever, mild SOB no ear pain, no sore throat saw dentist last week. ? 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 this a.m. also increased voiding w/no dysuria no N/V/D/C, no BRBPR or hematuria Samina Lama NP, [address] [place], [address], [facility] 10/19/2018 12:09:27 12/04/2018 text/html Very anxious re: husbands cognitive decline/getting worn out In therapy w/Peter Dopp Son also recent renal cancer, surgery went well.-but pt. gets worked up over everything pt recently started back on allergy shots some heartburn and post nasal drip Samina Lama NP, S [address] [facility], [place], [address], [facility] 12/04/2018 12:23:16 OBGyn Episode No OBEpisode recorded.
--- OUTSIDE RECORDS SUMMARY | 2024-10-15 15:08 | XMS_ITS | Patient Health Record ---
[facility] Address [address] [place] [address] Care Team Providers Care Bookmobile Clerk Name Role Phone Huma Garcia Primary Care Provider Kwadwo Guillen Unavailable [phone] Julieth Rosa Unavailable [phone] Allergies Allergen (clinical drug ingredient) Drug/Non Drug Allergy documented on EMR Reaction Allergy Type Onset Date Status metronidazole Flagyl Unknown Drug Allergy Act maya Keflex rash Drug Allergy Active Substance with sulfonamide structure and antibacterial mechanism of action (substance) Sulfa Antibiotics Unknown Drug Allergy Active Reason For Referral No Information Medications Medication SIG (Take, Route, Frequency, Duration) Notes Start Date End Date Status Myrbetriq Active Losartan Potassium A ctive Pantoprazole Sodium 40 MG 1 tablet Orally Once a day Active Folic Acid 400 MCG 1 tablet Orally Once a day Active Pepcid famotidine Not-Takin g PriLOSEC as needed PRN Not-Taking Valsartan 80 MG 1 tablet Orally Once a day Not-Taking Calcium + D Not-Taki ng Flovent HFA Not-Taki ng Trileptal Not-Taking Vitamin D3 Active Mirtazapine Active Ammonium Lactate 12 % 1 application to affected area Externally to feet Twice a day for 30 days Active Mucinex PRN Active CO-Q 10 [place]-3 Fish Oil Not-Taking Aspir-81 Not-Taking CeleXA Not-Taking Valsartan 40 MG 1 tablet Orally Twice a day for 30 day(s) Not-Taking MiraLax PRN Active Dicyclomine HCl Acti ve Flonase PRN Active ALPRAZolam 20 mg 1x aday Activ e Azithromycin 250 MG 2 tablets on the first day, then 1 tablet daily for 4 days Orally Once a day for 5 day(s) 11/27/2020 Not-Taking Pristiq 25 MG Orally Once a day Not-Taking Zantac Not-Taking Ranitidine Not-Takin g Beconase AQ Not-Taki ng Immunizations Vaccine Route Administration Date Status Comme nts COVID-19 Pfizer BioNTech Vaccine Unknown 06/29/2021 Administered 1st 11/06/2020 2nd Social History Tobacco Use: Social History Observation Description Date Details (start date - stop date) Never Smoker NA - NA Tobacco use other than smoking: Question Answer Notes Are you an other tobacco user? No Tobacco Control (Standard) Question Answer Notes Tobacco use: Nonsmoker Additional Findings: Tobacco non-user Current no nsmoker AUDIT-C (Standard) Question Answer Notes Did you have a drink containing alcohol in the p ast year? No Points 0 Interpretation Negative Problems Problem Type SNOMED Code ICD Code Onset Dates Problem Status W/U Status Risk Notes Problem Acquired hammer toe of left foot (7996068762625711 ) Other hammer toe(s) (acquired), left foot (M20.42) Active confirmed Problem Atherosclerosis of galena arteries of the extremities (340988819867966) Atherosclerosis of galena artery of both lower extremities, with unspecified presence of clinical manifestation (I70.203) Active confirmed Q7(A), Q8(2B), Q9(1B,2C) Problem Localized, primary osteoarthritis of the ankle and/or foot (178454365) Arthritis of joint of lesser toe, left (M19.072) Active confirmed Problem Ischemic ulcer o f left foot, limited to breakdown of skin (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) Active confirmed Response to treatment Vital Signs Blood pressure diastolic 74 mm Hg 10/11/2024 Height 5 ft 6 in in 10/11/2024 Blood pressure systolic 127 mm Hg 10/11/2024 Weight 163 lbs 10/11/2024 BMI 26.31 kg/m2 10/11/2024 Procedures Procedure Date Ordered Date Performed Result Body Sit e 47032-UUZLLWX NAIL, 6 OR MORE 11/10/2023 N/A 34792- Debride <25 sq cm 11/10/2023 N/A 34370-DJVI SKIN LESIONS, OVER 4 11/10/2023 N/A 42634-YDEGRME NAIL, 6 OR MORE 04/16/2024 N/A 72541-CEKW SKIN LESIONS, OVER 4 04/16/2024 N/A 29736-RAAUUHK NAIL, 6 OR MORE 09/25/2024 N/A 06574-DKVA SKIN LESIONS, OVER 4 09/25/2024 N/A Encounters Encounter Location Date Provider Diagnosis [address] [address] 11/10/2023 Kwadwo Hendricks Atherosclerosis of n ative artery of both lower extremities, with unspecified presence of clinical manifestation I70.203 ; Tinea unguium B35.1 ; Pain in right toe(s) M79.674 ; Pain in left toe(s) M79.675 and Skin ulcer of toe of left foot, limited to breakdown of skin L97.[address] [address] 04/16/2024 Kwadwo Hendricks Skin ulcer of toe of left foot, limited to breakdown of skin L97.521 ; Tinea unguium B35.1 ; Atherosclerosis of galena artery of both lower extremities, with unspecified presence of clinical manifestation I70.203 ; Pain in right toe(s) M79.674 and Pain in left toe(s) M79.675 [facility] [address] [address] 09/25/2024 Kwadwo Hendricks Atherosclerosis of n ative artery of both lower extremities, with unspecified presence of clinical manifestation I70.203 ; Tinea unguium B35.1 ; Pain in right toe(s) M79.674 and Pain in left toe(s) M79.[address] [address] 10/11/2024 Julieth Perica Ischemic ulcer of le ft foot, limited to breakdown of skin L97.521 ; Other hammer toe(s) (acquired), left foot M20.42 ; Pain in left toe(s) M79.675 ; Arthritis of joint of lesser toe, left M19.072 and Subluxation of metatarsophalangeal joint of toe, initial encounter S93.149A [facility] [place] [address] [place] [address] 02/13/2024 Kwadwo Hendricks [facility] [address] [address] 04/16/2024 Kwadwo Hendricks [facility] [place] [address] [facility] [address] [place] [address] 10/07/2024 Kwadwo Hendricks [facility] [address] [address] 10/09/2024 Kwadwo Ruthie [facility] [address] [address] 10/10/2024 Kwadwo Hendricks [facility] Encounter Date Diagnosis (ICD Code) Assessment Notes Treatment Notes Treatment Clinical Notes Section Notes 11/10/2023 Tinea unguium (ICD-1 0 - B35.1) 11/10/2023 Atherosclerosis of galena artery of both lower extremities, with unspecified presence of clinical manifestation (ICD-10 - I70.203) 04/16/2024 Tinea unguium (ICD-1 0 - B35.1) 04/16/2024 Skin ulcer of toe of left foot, limited to breakdown of skin (ICD-10 - L97.521) 09/25/2024 Atherosclerosis of galena artery of both lower extremities, with unspecified presence of clinical manifestation (ICD-10 - I70.203) Q7(A), Q8(2B), Q9(1B,2C) 10/11/2024 Other hammer toe(s) (acquired), left foot (ICD-10 - M20.42) 10/11/2024 Ischemic ulcer of le ft foot, limited to breakdown of skin (ICD-10 - L97.521) 10/11/2024 Pain in left toe(s) (ICD-10 - M79.675) 09/25/2024 Tinea unguium (ICD-1 0 - B35.1) 04/16/2024 Atherosclerosis of galena artery of both lower extremities, with unspecified presence of clinical manifestation (ICD-10 - I70.203) 11/10/2023 Pain in right toe(s) (ICD-10 - M79.674) 04/16/2024 Pain in right toe(s) (ICD-10 - M79.674) 11/10/2023 Pain in left toe(s) (ICD-10 - M79.675) 09/25/2024 Pain in right toe(s) (ICD-10 - M79.674) 10/11/2024 Arthritis of joint o f lesser toe, left (ICD-10 - M19.072) 09/25/2024 Pain in left toe(s) (ICD-10 - M79.675) 10/11/2024 Subluxation of metatarsophalangeal joint of toe, initial encounter (ICD-10 - S93.149A) 11/10/2023 Skin ulcer of toe of left foot, limited to breakdown of skin (ICD-10 - L97.521) Nonapplicable Patient Educated with: WOUND CARE INSTRUCTIONS .pdf (WOUND CARE INSTRUCTIONS .pdf) 04/16/2024 Pain in left toe(s) (ICD-10 - M79.675) 11/10/2023 Other 04/16/2024 Other Plan Of Treatment Pending Test Test Name Order Date *Uric Acid, Serum 11/27/2020 08692-UWBSFHP NAIL, 6 OR MORE 03/23/2021 72561-PTTFJHF NAIL, 6 OR MORE 11/23/2021 19314-YXFTXGI NAIL, 6 OR MORE 09/08/2020 75731-TRSPCAR NAIL, 6 OR MORE 09/20/2022 80340-JBZQOLL NAIL, 6 OR MORE 01/06/2023 07663-BQBRQVQ NAIL, 6 OR MORE 12/02/2011 63063-XABLVDB NAIL, 6 OR MORE 04/06/2012 88698-VPWIJUX NAIL, 6 OR MORE 07/10/2012 40719-MEUGGGQ NAIL, 6 OR MORE 10/10/2014 15313-QHKDNWZ NAIL, 6 OR MORE 03/24/2015 64555-JPDWXPV NAIL, 6 OR MORE 07/19/2016 17361-QGRQAZK NAIL, 6 OR MORE 01/10/2017 88525-FREEFWZ NAIL, 6 OR MORE 08/25/2017 89089-ESUMUPX NAIL, 6 OR MORE 11/24/2017 26655-PPGTWEV NAIL, 6 OR MORE 02/02/2018 18912-UFHCPCC NAIL, 6 OR MORE 08/07/2018 81314-TSJWGPE NAIL, 6 OR MORE 04/16/2019 89643-XACAXGH NAIL, 6 OR MORE 03/20/2020 00331-PAZCUQY NAIL, 6 OR MORE 06/12/2020 86580-URWXQWM NAIL, 6 OR MORE 06/13/2023 30829-BFDBMHX NAIL, 6 OR MORE 11/10/2023 65147-CVZRGCT NAIL, 6 OR MORE 04/16/2024 66924-YQGQIVD NAIL, 6 OR MORE 09/25/2024 50075-Dcyxyejj Plate 06/13/2023 01769-Ovnzztcr Plate 06/12/2020 87945-Rcjesrdf Plate 03/20/2020 54599-Vwjxxwyf Plate 04/16/2019 02037-Tdwesjuj Plate 09/20/2022 73075-Gcgvwkdg Plate 09/08/2020 22881-Mkzztqhv Plate 11/23/2021 88067-Ucjzmeui Plate 03/23/2021 39353-Ojiieqkk Plate Each Additional 63510-Oboftccs Plate Each Additional 94674- Debride <25 sq cm 12/31/2021 23196- Debride <25 sq cm 11/25/2022 64497- Debride <25 sq cm 03/24/2015 81347- Debride <25 sq cm 11/10/2023 38434- Debride <25 sq cm 02/10/2023 51598-SNHP SKIN LESIONS, OVER 4 04/16/20 24 98342-JZOI SKIN LESIONS, OVER 4 09/25/19 25 85530-YKYV SKIN LESIONS, OVER 4 06/13/20 23 29505-NHIC SKIN LESIONS, OVER 4 11/10/19 24 22976-CHFC SKIN LESIONS, OVER 4 01/07/20 23 65954-VNSW SKIN LESIONS, OVER 4 09/20/19 23 89250-CROU SKIN LESIONS, 2 TO 4 11/24/19 22 , V6414-GCNHU/INJECT, JOINT/BURSA 0 09/08/2020 63778 - Tenotomy, open flexor 12/01/2017 Next Appt Details Provider Name:Kwadwo Hendricks , 12/27/2024 12:00:00 PM, [address] [place] [address], [address], Insurance Providers Payer Name Payer Address Payer Phone Subscriber Number Group Number Insured Name Patient Relationship to Insured Coverage Start Date Coverage End Date Medicare National [facility] [address] [place] [address] [id number] Bella Henley Self - patient is the insured [employer] [facility] [address] [place] [address] [id number] Bella Henley Self - patient is the insured Medical (General) History Medical History History ICD Code back, hip, knee pain transfusions reflux measles chicken pox Anxiety disorder Peripheral neuropathy Fractured Pelvis, Left - 06/2023 Surgical History Surgery Date(Month/Year) tonsillectomy appendectomy intestinal blockage 11/2013 Hospitalization History Reason Date(Month/Year) [facility] [place] [facility] Dizziness [place] [facility] - 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 x 5 days; diverticulitis 12/2014
--- OUTSIDE RECORDS SUMMARY | 2024-10-15 15:09 | XMS_ITS ---
Author Organization [facility] Address [address] [place] [address] Care Team Providers Care Artificial Snow Making Machine Operator Name Role Phone Nick Gomez Primary Care Provider Unavailab Anatoliy Montgomery Unavailable [phone] REASON FOR VISIT retching Encounters Encounter Location Date Provider Diagnosis [facility] [address] [place] [address] 03/06/2024 Anatoliy Escobar PLAN OF TREATMENT No Information
--- OUTSIDE RECORDS SUMMARY | 2024-10-15 15:09 | XMS_ITS ---
Author Organization [facility] Address [address] [place] [address] Care Team Providers Care Visual Presentation Manager Name Role Phone Huma Garcia Primary Care Provider Kwadwo Guillen Unavailable [phone] Medications Medication SIG (Take, Route, Frequency, Duration) Notes Start Date End Date Status Beconase AQ Not-Taki ng Zantac Not-Taking Ranitidine Not-Takin g Azithromycin 250 MG 2 tablets on the first day, then 1 tablet daily for 4 days Orally Once a day for 5 day(s) 11/27/2020 Not-Taking Pristiq 25 MG Orally Once a day Not-Taking Pepcid famotidine Not-Takin g Calcium + D Not-Taki ng Flovent HFA Not-Taki ng PriLOSEC as needed PRN Not-Taking Valsartan 80 MG 1 tablet Orally Once a day Not-Taking Valsartan 40 MG 1 tablet Orally Twice a day for 30 day(s) Not-Taking Aspir-81 Not-Taking CeleXA Not-Taking Mucinex PRN Active CO-Q 10 [place]-3 Fish Oil Not-Taking ALPRAZolam 20 mg 1x aday Activ e Ammonium Lactate 12 % 1 application to affected area Externally to feet Twice a day for 30 days Active Dicyclomine HCl Acti ve Flonase PRN Active MiraLax PRN Active Pantoprazole Sodium 40 MG 1 tablet Orally Once a day Active Folic Acid 400 MCG 1 tablet Orally Once a day Active Myrbetriq Active Losartan Potassium A ctive Mirtazapine Active Vitamin D3 Active Trileptal Active Social History Tobacco Use: Social History [...] ast year? No Points 0 Interpretation Negative Encounters Encounter Location Date Provider Diagnosis [facility] [place] [address] [place] [address] 10/10/2024 Kwadwo Hendricks Plan Of Treatment Next Appt Details Provider Name:Kwadwo Hendricks , 12/27/2024 12:00:00 PM, [address] [place], [address], Progress Notes * Bella HENLEY GDOB:1940 (83 yo F)Acc No.[id number]:10/10/2024 Progress Note Patient:?Bella HENLEY Provider:?Kwadwo Hendricks DPM :1940???Age:83 Y???Sex:Female D ate:10/10/2024 Address:[address] [place], [place] [address] Pcp:Huma Garcia Subjective: * Chief Complaints: * ??? * ROS:?General/Constitutional:?Nausea?denies.?Vomiting?denies.?Hunger Thirst?denies.?Loss appetite?denies.?Chills?denies.?Fatigue?denies.?Fever?denies.?Night Sweats?denies.?Unexplained weight loss?denies.?Unexplained [...] disorder?denies.?Numbness?denies.?Balance trouble?denies.?Confusion?denies.?Fainting/blackouts?denies.?Tingling?denies.?Tr emors?denies.? * Medical History:? * Social History:?Tobacco Use:?Tobacco use other than smoking?Are you an other tobacco user??No ?Tobacco Control (Standard)?Tobacco use:?Nonsmoker ?Additional Findings: Tobacco non-user?Current nonsmoker ???Drugs/Alcohol:?Drugs?Have you used drugs other than those for medical reasons in the past 12 months??No ???Drug/Alcohol:?AUDIT-C (Standard)?Did you have a drink containing alcohol in the past year??No ?Points?0 ?Interpretation?Negative * Medications:?Taking Trilepta l , Taking Vitamin D3 , Taking Mirtazapine , Taking Myrbetriq , Taking Losartan Potassium , Taking Pantoprazole Sodium 40 MG Tablet Delayed Release 1 tablet Orally Once a day , Taking Folic Acid 400 MCG Tablet 1 tablet Orally Once a day , Taking MiraLax , Notes to Pharmacist: PRN, Taking Dicyclomine HCl , Taking Flonase , Notes to Pharmacist: PRN, Taking ALPRAZolam , Notes to Pharmacist: 20 mg 1x aday, Taking Ammonium Lactate 12 % Cream 1 application to affected area Externally to feet Twice a day , Taking Mucinex , Notes to Pharmacist: PRN, Not-Taking/PRN CO-Q 10 [place]-3 Fish Oil , Not-Taking/PRN Aspir- 81 , Not-Taking/PRN CeleXA , Not-Taking/PRN Valsartan 40 MG Tablet 1 tablet Orally Twice a day , Not-Taking/PRN Pepcid , Notes to Pharmacist: famotidine, Not-Taking/PRN PriLOSEC as needed , Notes to Pharmacist: PRN, Not-Taking/PRN Valsartan 80 MG Tablet 1 tablet Orally Once a day , Not-Taking/PRN Calcium + D , Not-Taking/PRN Flovent HFA , Not-Taking/PRN Azithromycin 250 MG Tablet 2 tablets on the first day, then 1 tablet daily for 4 days Orally Once a day , Not-Taking/PRN Pristiq 25 MG Tablet Extended Release 24 Hour Orally Once a day , Not-Taking/PRN Zantac , Not-Taking/PRN Ranitidine , Not-Taking/PRN Beconase AQ Objective: * Vitals:? Assessment: Plan: * Treatment: * Images: * The named appointment provid er may or may not be the originator of this progress note, and it is not deemed complete until electronically signed by the appointment provider. Sign off status: Pending * Provider:?Kwadwo Hendricks DPM Date:?2024 Generated for José Luis bryan/Elizabeth/Marquise on:?10/15/2024 03:09 PM EST
--- OUTSIDE RECORDS SUMMARY | 2024-10-15 15:09 | XMS_ITS ---
Author [facility] Address [address] [place] [address] Care Team Providers Care Manager Sourcing Name Role Phone Huma Garcia Primary Care Provider Kwadwo Guillen Unavailable [phone] REASON FOR VISIT same day rs 10/10/24 Encounters Encounter Location Date Provider Diagnosis [address] [address] 10/10/2024 Kwadwo Hendricks Plan Of Treatment Next Appt Details Provider Name:Kwadwo Hendricks , 12/27/2024 12:00:00 PM, [address] [place] [address], [phone], Progress Notes * Bella HENLEY GDOB:1940 (83 yo F)Acc No.[id number]:10/10/2024 Patient:?Bella HENLEY :1940???Age:83 Y???Sex:Female Address:[address] [place] [address], * true * Date:? Generated for Printi ng/Elizabeth/eTransmitting on:?10/15/2024 03:08 PM EST
--- OUTSIDE RECORDS SUMMARY | 2024-10-15 15:09 | XMS_ITS ---
Author Organization [facility] Address [address] [place] [address] Care Team Providers Care Doctor Osteopathic Name Role Phone Nick Gomez Primary Care Provider Unavailab Anatoliy Montgomery Unavailable [phone] REASON FOR VISIT constipation Encounters Encounter Location Date Provider Diagnosis [facility] [address] [place] [address] 03/06/2024 Anatoliy Escobar PLAN OF TREATMENT No Information
--- OUTSIDE RECORDS SUMMARY | 2024-10-15 15:09 | XMS_ITS ---
Author Organization [facility] Address [address] [place] [address] Care Team Providers Care Picture Framer Name Role Phone Nick Gomez Primary Care Provider Unavailab Anatoliy Montgomery Unavailable [phone] REASON FOR VISIT acid reflux Encounters Encounter Location Date Provider Diagnosis [facility] [address] [place] [address] 06/14/2024 Anatoliy Escobar PLAN OF TREATMENT No Information
== END 2024-10-15 15:18 | disposition home or self-care (01) ==
PROVIDERS: PCP Internal Medicine; Visit Provider Nurse Practitioner Family
DX: R91.1 Solitary pulmonary nodule (principal); J44.9 Chronic obstructive pulmonary disease, unspecified
CPT/HCPCS: 99214

== ENCOUNTER → 2024-10-15 14:13 | Outpatient (BNVA) | payer MEDICARE, OTHER, SELFPAY | PROVIDERS: PCP Internal Medicine; Visit Provider Nurse Practitioner Family | DX: J44.9 Chronic obstructive pulmonary disease, unspecified (principal); I10 Essential (primary) hypertension; R91.1 Solitary pulmonary nodule; Z87.891 Personal history of nicotine dependence | CPT/HCPCS: 99212 ==

== ENCOUNTER 2024-10-23 14:35 | Outpatient (REF) | payer MEDICARE, OTHER, SELFPAY ==
--- OUTSIDE RECORDS SUMMARY | 2024-10-23 15:08 | XMS_ITS | Data Portability ---
Author Organization [facility], Home Service Address [address] [place] [address] Assessment No assessment recorded. Plan of Treatment Reminders Order Date Submit Date Provider Last Modified By Organization Details Last Modified Time Details Appointments None recorded. Lab BMP, blood [address] [facility], [address] [place] [address], [facility] [place], [address], 9 07:42:19 lipid panel, blood [address] [facility], [address] [place] [address], [facility], [place], [address], 9 07:42:20 Referral None recorded. Procedures None recorded. Surgeries None recorded. Imaging None recorded. Medication Orders Cipro 500 mg tablet 2018 019 [id number], [address] [place], [place], [phone], 9 11:53:38 Zithromax Z-Rajesh 250 mg tablet 2018 019 [facility] [employer] [facility][id number], [address], [place], [phone], 9 11:53:23 metoprolol succinate ER 25 mg tablet,exte nded release 24 hr 2018 [id number], [address], [place], [phone], 9 11:15:40 Patient Targets Encounter Date Encounter Id Patient Goals Patient Target Last Modified By Organization Details Last Modified Time Call therapist to schedule counseling marilynn Not available 09/26/2018 11:54:07 Patient Instructions Encounter Date Encounter Id Patient Instructions Last Modified By Organization Details Last Modified Time 09/21/2018 [id number] Relaxation, reconsider escitalopram- will review at f/u next week to avoid dual med starting together marilynn Not available 09/21/2018 15:27:44 09/26/2018 [id number] pulse oximetry* marilynn Not available 09/26/2018 11:54:08 10/08/2018 [id number] Acute Sinusitis: Care Instructions marilynn Not available 10/08/2018 11:28:17 pulse oximetry* marilynn Not available 10/08/2018 11:28:17 12/04/2018 [id number] pulse oximetry* marilynn Not available 12/04/2018 12:22:51 Reason for Referral None Reported. Results Created Date Observation Date Name Description Value Unit Range Abnormal Flag Note LastModifiedBy Organization Detail LastModifiedTime 09/26/19 19 09/26/2018 pulse oxime try* Result 96 Not Available [facility] [address], [address], 09/26/2018 11:15:30 10/08/19 19 10/08/2018 pulse oxime try* Result 97 Not Available [facility] [address], [address], 10/08/2018 11:18:00 12/05/19 19 12/04/2018 pulse oxime try* Result 97 Not Available [facility] [address], [address], 12/04/2018 11:55:20 Result Notes None recorded. Problems Name Problem SNOMED Code Status Onset Date Resolution Date Notes Provider Name and Address Organization Details Recorded Time Abdominal aortic aneurysm 580047939 Active 2017 Samina Lama NP, S [address] [place], [address], [facility] 8 13:58:39 Diverticul itis 899532460 Active 2017 Tainaronnell Hanson [facility] 8 16:58:14 Chronic obstructiv e pulmonary disease 82871374 Active 2017 [facility] 8 16:58:22 Aortic valve stenosis 55822047 [facility] 2017 [facility] 16:58:36 Anxiety 78128000 [facility] 2017 [facility] 8 16:58:45 Cystocele 567935781 Active 2017 [facility] [place] [facility] 8 16:58:58 Problem Notes None recorded. Medical Equipment None Reported. Allergies Allergen ID Allergen Name Allergen Category Reaction Reaction Severity Criticality Documentation Date Start Date Code Code System Note Provider Name and Address Organization Details Recorded Time 1547 Substance with sulfonami de structure and antibacte rial mechanism of action (substanc e) medicatio n Not available Not available Not available 02/06/2018 04968 8003 SNOMED Tainaronnell Hanson [facility] 8 16:57:43 1548 Keflex medicatio n Not available Not available Not available 02/06/2018 7 RxNorm Tainaronnell Hanson [facility] 8 16:57:55 2328 Flagyl medicatio n other moderate Not available 05/29/201811652 6 RxNorm Tainaronnell Hanson [facility] 8 11:44:55 2717 metoprolo l Not available chest pain Not available Not available 09/21/2018 6918 RxNorm Tainaronnell Hanson [facility] 9 16:31:23 Medications Name Sig Start Date [...] % 128 mm[Hg] 84 mm[Hg] Taina Hanson [facility] 9 14:32:26 Date Recorded Body height Heart rate Oxygen saturation Oxygen saturation in Arterial blood by Pulse oximetry Systolic blood pressure Diastolic blood pressure Provider Name and Address Organization Details Last Updated DateTime 9 168.91 cm 90 /min 96 % 96 % 124 mm[Hg] 80 mm[Hg] Eunice Molina [facility] 9 11:17:24 Date Recorded Body height Oxygen saturation Oxygen saturation in Arterial blood by Pulse oximetry Heart rate Body temperature Systolic blood pressure Diastolic blood pressure Provider Name and Address Organization Details Last Updated DateTime 9 168.91 cm 97 % 97 % 112 /min 98.2 [degF] 142 mm[Hg] 86 mm[Hg] Tainaronnell Hanson [facility] 9 11:17:37 Date Recorded Heart rate Provider Name an d Address Organization Details Last Updated DateTime 10/08/2018 84 /min Samina Lama NP, S [address] [place], [address], [facility] 10/08/2018 11:28:37 Date Recorded Body height Heart rate Oxygen saturation Oxygen saturation in Arterial blood by Pulse oximetry Systolic blood pressure Diastolic blood pressure Provider Name and Address Organization Details Last Updated DateTime 9 168.91 cm 105 /min 98 % 98 % 140 mm[Hg] 80 mm[Hg] [facility] 9 11:45:01 Date Recorded Heart rate Provider Name an d Address Organization Details Last Updated DateTime 10/19/2018 80 /min Samina Lama NP, S [address] [place], [address], [facility] 10/19/2018 12:04:58 Date Recorded Body height Body mass index (BMI) Body weight Oxygen saturation Oxygen saturation in Arterial blood by Pulse oximetry Heart rate Systolic blood pressure Diastolic blood pressure Provider Name and Address Organization Details Last Updated DateTime 9 168.91 cm 31.1 kg/m2 16390.6 7 g 97 % 97 % 97 /min 120 mm[Hg] 90 mm[Hg] Dahiana Ha [facility] 9 11:56:24 Social History Question Answer Notes LastModified by Organizat ion Details LastModified Time Tobacco Smoking Status Former Smoker Not Available [facility] 07/07/2020 03:36:24 What Was The Date Of Your Most Recent Tobacco Screening? 12/04/2018 [id number] Information not available 07/07/2020 Sex: Unknown Functional Status None recorded. Mental Status None recorded. Family History Nothing Reported. Medical History Condition Response Coronary Artery Disease N Gout N Other N Kidney Stones N Blood Diseases N Blood Transfusion N Breast Cancer N Lung Disease N Depression N COPD N Defects or Inherited Disease N Anxiety Disorder N Muscle, Joint, or Bone Problems N Obesity N Vision or Eye Problems N Arthritis N Infertility N Polyps N Mental Disorder N Cancer N Stroke N Varicosities N Endometriosis N Bladder or Kidney Problems N High Cholesterol N Liver Disease N Fibromyalgia N Headaches N Kidney Disease N Allergies/Hayfever N Heart [...] virus, quadrivalent, preservative 8 completed Eunice damon [facility] 09/26/2018 11:16:26 Past Encounters Encounter ID Performer Location Encounter Start Date Encounter Closed Date Diagnosis/Indication Diagnosis SNOMED-CT Code Diagnosis ICD10 Code Diagnosis Note [id number] Samina Lama NP, S [facility] [address] [facility],[place] [address] 02/07/2018 11:02:27 02/07/2018 16:46:02 Anxiety 71383879 F41.9 Nail changes 172020978 L 60.9 Abdominal aortic aneurysm 670096868 I71.4 CT 11/2017, no changes 2016, 2.85 cm Aortic david nosis, non-rheumatic 898312360 I35.0 stable Gastroesop hageal reflux disease 922243625 K21.9 d/c yajaira mints, call if persists Insomnia 236483340 G47.0 0 review proper sleep hygiene be more active during day avoid naps [id number] Samina Lama NP, S [facility] [address] [facility],[place] [address] 03/16/2018 11:29:23 03/20/2018 08:12:01 Dehydration 95220181 E86.0 Gastroenteritis 35080522 K52.9 Aortic valve stenosis 60 684533 I35.0 stable, follow [id number] Samina Lama NP, S [facility] [address] [facility],[place] [address] 05/16/2018 13:23:14 05/16/2018 14:06:44 Anxiety 59913268 F41.9 BID lorazepam helps Aortic valve stenosis 60 786093 I35.0 stable, echo 05/31/2017 Active or passive immunization 605455625 Z23 Abdominal aortic aneurysm 607088553 I71.4 CT 11/2017, no changes 2016, 2.85 cm Chronic ob structive pulmonary disease 11934280 J44.9 Non smoker X years, asymptomat ic Diverticular disease 397 087823 K57.90 no recent flare [id number] Samina Lama NP, [facility] [address] [facility],[place] [address] 05/29/2018 11:40:58 05/29/2018 16:52:51 Aortic valve stenosis 82688192 I35.0 stable, echo 05/31/2017 Anxiety 18578351 F41.9 BID lorazepam helps, discussed current fears re: Constipation 44498933 K5 9.00 [id number] Samina Lama NP, S [facility] [address] [facility],[place] [address] 08/14/2018 11:20:27 08/14/2018 17:00:16 Anxiety 54189938 F41.9 BID lorazepam helps, discussed current fears Aortic valve stenosis 60 074974 I35.0 stable, echo 05/31/2017 Diverticulitis 949730845 K57.92 Increased frequency of urination 195134735 R35.0 [id number] Samina Lama NP, S [facility] [address] [facility],[place] [address] 08/20/2018 11:12:33 08/20/2018 12:20:46 Anxiety 27933625 F41.9 BID alprazolam helps, discussed current fears Diverticulitis 451598054 K57.92 Aortic valve stenosis 60 525706 I35.0 stable, echo 05/31/2017 Family problems 38181313 4 Z63.79 Suggest therapy, [place]. [place] agrees [id number] Samina Lama NP, S [facility] [address] [facility],[place] [address] 09/12/2018 10:19:31 09/12/2018 20:18:16 Abdominal aortic aneurysm 652239415 I71.4 CT 11/2017, no changes 2016, 2.85 cm Chronic ob structive pulmonary disease 89861404 J44.9 Non smoker X years, asymptomat ic Anxiety 02042255 F41.9 BID alprazolam helps, discussed current fears Aortic valve stenosis 60 203002 I35.0 stable, echo 05/31/2017 [id number] Samina Lama NP, [facility] [address] [facility],[place] [address] 09/21/2018 14:26:58 09/25/2018 11:17:00 Anxiety 23722466 F41.9 discussed current fears again, see below Aortic valve stenosis 60 206435 I35.0 [id number] Samina Lama NP, S [facility] [address] [facility] [address],[place] [address] 09/26/2018 11:12:05 09/26/2018 13:02:53 Hypertensive disorder 65136783 I10 Chronic ob structive pulmonary disease 22557171 J44.9 Non smoker X years, asymptomat ic Anxiety 91101564 F41.9 discussed current fears again, see below Aortic valve stenosis 60 459058 [place]35[place] [id number] Samina Lama NP, [facility] [address] [facility] [address],[place] [address] 10/08/2018 11:12:38 10/08/2018 14:35:10 Cough 47091450 R05 Acute sinusitis 97500386 J01.90 Anxiety 96563965 F41.9 revisited [id number] Samina Lama NP, S [facility] [address] [facility] [address], [place] [address] 10/19/2018 11:41:00 10/19/2018 12:37:34 Diverticulitis 857981213 K57.92 Intolerant Flagyl Anxiety 12843867 F41.9 revisited Aortic valve stenosis 60 653721 I35.0 asymptomat ic Abdominal aortic aneurysm 824726367 I71.4 CT 11/2017, no changes 2016, 2.85 cm Chronic ob structive pulmonary disease 51035962 J44.9 [place] [id number] Samina Lama NP, S [facility] [address] [facility] [address],[place] [address] 12/04/2018 11:49:58 12/04/2018 16:03:42 Chronic obstructive pulmonary disease 57202508 J44.9 Non smoker X years, asymptomat ic Anxiety 43226339 F41.9 revisited Aortic valve stenosis 60 070520 I35.0 asymptomat ic Health Concerns Section Related Observation LastModified by Organization Detai ls LastModified Time None Recorded Concern Status LastModified by Organization Details LastModified Time None Recorded Advance Directives Directive None Recorded Payers Encounter Date Sequence Insurance Name Policy Number Policy Berry Covered Member ID Berry Member ID Guarantor Name 09/21/2018 2 [facility] [id number] Bella Knappel [id number] Bella Hurst 09/21/2018 1 MEDICARE B-PA: [employer] Bella Henley [id number] Bella Henley 09/26/2018 2 [facility] [id number] Bella Keith Kale [id number] Bella eHnley 09/26/2018 1 MEDICARE B-PA: [employer] Bella Henley [id number] Bella Henley 10/08/2018 2 [facility] [id number] Bella Henley [id number] Bella Henley 10/08/2018 1 MEDICARE B-PA: [facility] Bella Henley [id number] Bella Henley 10/19/2018 2 [facility] [id number] Bella Henley [id number] Bella Henley 10/19/2018 1 MEDICARE B-PA: [facility] Bella Henley [id number] Bella Henley 12/04/2018 2 [facility] [id number] Bella Henley [id number] Bella Henley 12/04/2018 1 MEDICARE B-PA: [facility] Bella Henley [id number] Bella Henley Notes Date Note Type Note Provider Name a nd Address Organization Details Recorded Time 09/21/2018 text/html Here with concer ns BP had panic attack this am, ambulance was called Checked BP after pts episode was 158/101 Did not start escitalopram prescribed last week , under a great deal of stress Samina Lama NP, S [address] [place], [address], [facility] 09/21/2018 15:27:56 09/26/2018 text/html see [...] complete ADL's Samina Lama NP, S [address] [place], [address], [facility] 09/26/2018 11:54:50 10/08/2018 text/html Same [...] family situation Samina Lama NP, S [address] [place], [address], [facility] 10/08/2018 11:49:45 10/19/2018 text/html Yesterday felt o k last night 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 this a.m. also increased voiding w/no dysuria no N/V/D/C, no BRBPR or hematuria Samina Lama NP, S [address] [place], [address], [facility] 10/19/2018 12:09:27 12/04/2018 text/html Very anxious re: husbands cognitive decline/getting worn out In therapy w/Peter Dopp Son also recent renal cancer, surgery went well.-but pt. gets worked up over everything pt recently started back on allergy shots some heartburn and post nasal drip Samina Lama NP, S [address] [facility], [place], [address], [facility] 12/04/2018 12:23:16 OBGyn Episode No OBEpisode recorded.
--- OUTSIDE RECORDS SUMMARY | 2024-10-23 15:09 | XMS_ITS | Clinical Summary ---
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 Phone Unavailable Primary Care Provider [...] DTaP,Tdap,and Td Vaccines (1 - Tdap) 1959 Pneumococcal Vaccine: 50+ Ye ars (1 of 1 - PCV) 1990 Zoster Vaccines (1 of 2) 1990 RSV Immunization Patients 60 + Years Old [...] patient's age to complete this topic Meningococcal B Vacine Aged Out No lo nger eligible based on patient's age to complete this topic RSV Immunization Patients Un marilin 20 months Aged Out No longer eligible b ased on patient's age to complete this topic Varicella Vaccines Aged Out No longer eligible based on patient's age to complete this topic Advance Directives Documents on File Type Date Recorded 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
--- OUTSIDE RECORDS SUMMARY | 2024-10-23 15:09 | XMS_ITS | Patient Health Record ---
[facility] Address [address] [place] [address] Care Team Providers Care Research Associate Professor Name Role Phone Huma Garcia Primary Care Provider Kwadwo Guillen Unavailable [phone] Julieth Rosa Unavailable [phone] Allergies Allergen (clinical drug ingredient) Drug/Non Drug [...] days Active Mucinex PRN Active CO-Q 10 Inglis-3 Fish Oil Not-Taking Aspir-81 Not-Taking CeleXA Not-Taking [...] Problem Acquired hammer toe of left foot (4220336868219092 ) Other hammer toe(s) (acquired), left foot (M20.42) Active confirmed Problem Atherosclerosis of stony river arteries of the extremities (748536831748192) Atherosclerosis of stony river artery of both lower extremities, with unspecified presence of clinical manifestation (I70.203) Active confirmed Q7(A), Q8(2B), Q9(1B,2C) Problem Localized, primary osteoarthritis of the ankle and/or foot (325892627) Arthritis of joint of lesser toe, left [...] Ordered Date Performed Result Body Sit e 52352-UBJFZVU NAIL, 6 OR MORE 11/10/2023 N/A 26125- Debride <25 sq cm 11/10/2023 N/A 77937-WWDV SKIN LESIONS, OVER 4 11/10/2023 N/A 87274-VVNYCTR NAIL, 6 OR MORE 04/16/2024 N/A 53469-KTJJ SKIN LESIONS, OVER 4 04/16/2024 N/A 74768-FOOKAME NAIL, 6 OR MORE 09/25/2024 N/A 90052-EFGV SKIN LESIONS, OVER 4 09/25/2024 N/A Encounters Encounter Location Date Provider Diagnosis [address] [address] 11/10/2023 Kwadwo Hendricks Atherosclerosis of n ative artery of both lower extremities, with unspecified presence of clinical manifestation I70.203 ; Tinea unguium B35.1 ; Pain in right toe(s) M79.674 ; Pain in left toe(s) M79.675 and Skin ulcer of toe of left foot, limited to breakdown of skin L97.[address] [address] 04/16/2024 Kwadwo Hendricks Skin ulcer of toe of left foot, limited to breakdown of skin L97.521 ; Tinea unguium B35.1 ; Atherosclerosis of stony river artery of both lower extremities, with unspecified presence of clinical manifestation I70.203 ; Pain in right toe(s) M79.674 and Pain in left toe(s) M79.675 [facility] [address] [address] 09/25/2024 Kwadwo Hendricks Atherosclerosis of n ative artery of both lower extremities, with unspecified presence of clinical manifestation I70.203 ; Tinea unguium B35.1 ; Pain in right toe(s) M79.674 and Pain in left toe(s) M79.[address] [address] 10/11/2024 Julieth Perica Ischemic ulcer of le ft foot, limited to breakdown of skin L97.521 ; Other hammer toe(s) (acquired), left foot M20.42 ; Pain in left toe(s) M79.675 ; Arthritis of joint of lesser toe, left M19.072 and Subluxation of metatarsophalangeal joint of toe, initial encounter S93.149A [facility] [place] [address] [place] [address] 02/13/2024 Kwadwo Hendricks [facility] [address] [address] 04/16/2024 Kwadwo Hendricks [facility] [place] [address] [facility] [address] [place] [address] 10/07/2024 Kwadwo Hendricks [facility] [address] [address] 10/09/2024 Kwadwo Ruthie [facility] [address] [address] 10/10/2024 Kwadwo Hendricks [facility] Encounter Date Diagnosis (ICD Code) Assessment Notes Treatment Notes Treatment Clinical Notes Section Notes 11/10/2023 Tinea unguium (ICD-1 0 - B35.1) 11/10/2023 Atherosclerosis of stony river artery of both lower extremities, with unspecified presence of clinical manifestation (ICD-10 - I70.203) 04/16/2024 Tinea unguium (ICD-1 0 - B35.1) 04/16/2024 Skin ulcer of toe of left foot, limited to breakdown of skin (ICD-10 - L97.521) 09/25/2024 Atherosclerosis of stony river artery of both lower extremities, with unspecified presence of clinical manifestation (ICD-10 - I70.203) Q7(A), Q8(2B), Q9(1B,2C) 10/11/2024 Other hammer toe(s) (acquired), left foot (ICD-10 - M20.42) 10/11/2024 Ischemic ulcer of le ft foot, limited to breakdown of skin (ICD-10 - L97.521) 10/11/2024 Pain in left toe(s) (ICD-10 - M79.675) 09/25/2024 Tinea unguium (ICD-1 0 - B35.1) 04/16/2024 Atherosclerosis of stony river artery of both lower extremities, with unspecified [...] Name Order Date *Uric Acid, Serum 11/27/2020 54973-AKVCXAL NAIL, 6 OR MORE 03/23/2021 45652-AUYBVOG NAIL, 6 OR MORE 11/23/2021 63633-XRDJJBM NAIL, 6 OR MORE 09/08/2020 02334-AWMINLH NAIL, 6 OR MORE 09/20/2022 02693-AXAKETX NAIL, 6 OR MORE 01/06/2023 16319-MNSJEUA NAIL, 6 OR MORE 12/02/2011 55230-AMJXWBF NAIL, 6 OR MORE 04/06/2012 07870-OUSWYNH NAIL, 6 OR MORE 07/10/2012 26856-GXIUZCB NAIL, 6 OR MORE 10/10/2014 39012-SSEVICG NAIL, 6 OR MORE 03/24/2015 37206-YEREETC NAIL, 6 OR MORE 07/19/2016 21141-NXYDLQU NAIL, 6 OR MORE 01/10/2017 94029-JIBOHUW NAIL, 6 OR MORE 08/25/2017 04522-ZBCLQCU NAIL, 6 OR MORE 11/24/2017 70249-CDHEUXU NAIL, 6 OR MORE 02/02/2018 94949-TERNKIA NAIL, 6 OR MORE 08/07/2018 23329-DQXRMUE NAIL, 6 OR MORE 04/16/2019 50699-LJWFQGJ NAIL, 6 OR MORE 03/20/2020 44838-LPPHPNG NAIL, 6 OR MORE 06/12/2020 28951-FKLQZYT NAIL, 6 OR MORE 06/13/2023 25035-ZRKAFKR NAIL, 6 OR MORE 11/10/2023 83761-QTRRWKL NAIL, 6 OR MORE 04/16/2024 77483-BBQEYNZ NAIL, 6 OR MORE 09/25/2024 10200-Kzggcptc Plate 06/13/2023 04950-Schjjunc Plate 06/12/2020 02967-Bawsslxd Plate 03/20/2020 85216-Oczjphio Plate 04/16/2019 13053-Vkyptkhx Plate 09/20/2022 65819-Zegmsmtx Plate 09/08/2020 06630-Svjdtoyw Plate 11/23/2021 59377-Qmqqxeex Plate 03/23/2021 88260-Nlkppfdw Plate Each Additional 49364-Zobaasgx Plate Each Additional 99083- Debride <25 sq cm 12/31/2021 62021- Debride <25 sq cm 11/25/2022 81161- Debride <25 sq cm 03/24/2015 99205- Debride <25 sq cm 11/10/2023 81551- Debride <25 sq cm 02/10/2023 45420-MPAG SKIN LESIONS, OVER 4 04/16/20 24 17748-OBLU SKIN LESIONS, OVER 4 09/25/19 25 65044-UVOC SKIN LESIONS, OVER 4 06/13/20 23 29225-WBER SKIN LESIONS, OVER 4 11/10/19 24 58180-GQJE SKIN LESIONS, OVER 4 01/07/20 23 58163-KTWY SKIN LESIONS, OVER 4 09/20/19 23 40214-REVJ SKIN LESIONS, 2 TO 4 11/24/19 22 , X0517-TRYIO/INJECT, JOINT/BURSA 0 09/08/2020 96454 - Tenotomy, open flexor 12/01/2017 Next Appt Details Provider Name:Kwadwo Hendricks , 12/27/2024 12:00:00 PM, [address] [place] [address], [address], Insurance Providers Payer Name Payer Address Payer Phone Subscriber Number Group Number Insured Name Patient Relationship to Insured Coverage Start Date Coverage End Date Medicare [facility] [address] [place] [address] [phone] [id number] Bella Henley Self - patient is the insured [facility]perenti [facility] [address] [place] [address] [phone] [id number] Bella Henley Self - patient is the insured Medical (General) History Medical History History ICD Code back, hip, knee pain transfusions reflux measles chicken pox Anxiety disorder Peripheral neuropathy Fractured Pelvis, Left - 06/2023 Surgical History Surgery Date(Month/Year) tonsillectomy appendectomy intestinal blockage 11/2013 Hospitalization History Reason Date(Month/Year) [facility] 06/2023 [facility]- Chest pain and Dizziness 06/2023 [facility] [place]- stomach pains - Gerd /IBS due to anxiety 01/2021,02/2021 Patient admitted to [facility] x 5 days; diverticulitis 12/2014
--- OUTSIDE RECORDS SUMMARY | 2024-10-23 15:09 | XMS_ITS ---
Author Organization [facility] Address [address] [place] [address] Care Team Providers Care Software Lead Name Role Phone Huma Garcia Primary Care Provider Kwadwo Guillen Unavailable [phone] Medications Medication SIG (Take, Route, Frequency, Duration) [...] CeleXA Not-Taking Mucinex PRN Active CO-Q 10 [place]-3 Fish Oil Not-Taking ALPRAZolam 20 mg 1x [...] Negative Encounters Encounter Location Date Provider Diagnosis [facility] [place] [address] [place] [phone] 10/10/2024 Kwadwo Hendricks Plan Of Treatment Next Appt Details Provider Name:Kwadwo Hendricks , 12/27/2024 12:00:00 PM, [address] [place], [address], Progress Notes * Bella HENLEY GDOB:1940 (84 yo F)Acc No.[id number]:10/10/2024 Progress Note Patient:?Bella HENLEY Provider:?Kwadwo Hendricks DPM :1940???Age:83 Y???Sex:Female D ate:10/10/2024 Address:[address] [place], [place] [id number] Pcp:Huma Garcia Subjective: * Chief Complaints: * [...] Notes to Pharmacist: PRN, Not-Taking/PRN CO-Q 10 [place]-3 Fish Oil , Not-Taking/PRN Aspir- 81 , [...] DPM Date:?2024 Generated for José Luis bryan/Elizabeth/Marquise on:?10/23/2024 03:09 PM EST
--- OUTSIDE RECORDS SUMMARY | 2024-10-23 15:09 | XMS_ITS ---
Author Organization [facility] Address [address] [place] [address] Care Team Providers Care Supervisor [employer] Name Role Phone JoseLisaregina Primary Care Provider UnavailKwadwo Redman Unavailable [phone] Julieth Rosa Unavailable [phone] Allergies Allergen (clinical drug ingredient) Drug/Non Drug [...] Not-Taki ng Mucinex PRN Active CO-Q 10 [place]-3 Fish Oil Not-Taking Aspir-81 Not-Taking CeleXA Not-Taking [...] Problem Acquired hammer toe of left foot ([id number] ) Other hammer toe(s) (acquired), left foot (M20.42) Active confirmed Problem Localized, primary osteoarthritis of the ankle and/or foot (535229257) Arthritis of joint of lesser toe, left (M19.072) Active confirmed Vital Signs Height 5 ft 6 in in 10/11/2024 Weight 163 lbs 10/11/2024 BMI 26.31 kg/m2 10/11/2024 Blood pressure systolic 127 mm Hg 10/11/19 25 Blood pressure diastolic 74 mm Hg 025 Encounters Encounter Location Date Provider Diagnosis [facility] [place] [address] [place] [address] 10/11/2024 Julieth Rosa Ischemic ulcer of le [...] Provider Name:Kwadwo Hendricks , 12/27/2024 12:00:00 PM, [address] [place] [address], [phone], Procedure Notes * Category Sub-Category Detail Notes [...] of the wound post debridement is stable (45095), The patient was instructed on importance of [...] * EUGENE Bella GDOB:1940 (83 yo F)Acc No.[id number]:10/11/2024 Progress Note Patient:?Bella HENLEY Provider:?Julieth Rosa DPM :1940???Age:83 Y???Sex:Female D ate:10/11/2024 Address:[address] [place], [place] [phone] Pcp:Huma Garcia Subjective: * Chief Complaints: * [...] * Hospitalization/Major Diagno stic Procedure:?Patient admitted to [facility] x 5 days; diverticulitis 12/2014[facility]- stomach pains - Gerd /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 ?Marital status: single, . 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 * Medications:?TakingVitamin D 3 Mirtazapine Myrbetriq [...] , Notes to Pharmacist: PRNNot-Taking/PRNTrileptal CO-Q 10 [place]-3 Fish Oil Aspir-81 CeleXA Valsartan 40 MG [...] with the patientNot-Taking/PRN Trileptal Not-Taking/PRN CO-Q 10 [place]-3 Fish Oil Not-Taking/PRN Aspir-81 Not-Taking/PRN CeleXA Not-Taking/PRN [...] of the wound post debridement is stable (66663), The patient was instructed on importance of [...] till condition is completely healed.? * Procedure Codes:?09222 ACTIV E WOUND CARE/20 CM OR <, [...] the past year??No * Follow Up:?as scheduled,To [facility] Hendricks * Images: * Sign off status: Completed true * Provider:?Julieth Rosa DPM Date:?03/2025 Generated for José Luis bryan/Elizabeth/Marquise on:?10/23/2024 03:08 PM EST History and Physical Notes [...]
--- OUTSIDE RECORDS SUMMARY | 2024-10-23 15:09 | XMS_ITS ---
Author Organization [facility] Address [address] [place] [address] Care Team Providers Care Corporate Manager Name Role Phone Huma Garcia Primary Care Provider Kwadwo Guillen Unavailable [phone] REASON FOR VISIT same day rs 10/10/24 Encounters Encounter Location Date Provider Diagnosis [address] [address] 10/10/2024 Kwadwo Hendricks Plan Of Treatment Next Appt Details Provider Name:Kwadwo Hendricks , 12/27/2024 12:00:00 PM, [address] [place] [address], [phone], Progress Notes * Bella HENLEY GDOB:1940 (83 yo F)Acc No.[id number]:10/10/2024 Patient:?Belal HENLEY :1940???Age:83 Y???Sex:Female Address:[address] [place] [address], * true * Date:? Generated for Printi ng/Elizabeth/eTransmitting on:?10/23/2024 03:09 PM EST
[2024-10-23 15:34] LABS: Appearance Urine Clear; Color Urine Yellow; Glucose Urine UA Negative (Negative); Leukocyte Esterase Urine Negative (Negative); Nitrite Urine Negative (Negative); PH 5.5 (5.0-9.0); Specific Gravity - Urine >= 1.030 (1.005-1.025); Urine Blood Negative (Negative); Urine Ketones Negative (Negative); Urine Protein Negative (Neg-Trace)
== END 2024-10-23 14:36 | disposition home or self-care (01) ==
LOC: HO.HVNA 14:35
PROVIDERS: Visit Provider Internal Medicine
DX: N39.0 Urinary tract infection, site not specified (principal)
CPT/HCPCS: 81003; 87086

== ENCOUNTER 2024-11-01 11:12 | Outpatient (AMB) | payer MEDICARE, OTHER, SELFPAY ==
--- NOTE | 2024-11-01 11:15 | A.OFFPC_ITS ---
Vital Signs 11/01/24 11:17 Height 5 ft 6 in Weight 179 lb 8 oz BMI 29.0 BP 130/70 Blood Pressure Location Lt brachial Position Sitting Pulse 97 Pulse Source Pulse Oximeter Temp 97.3 F Temp Source Temporal Artery Scan Pulse Oximetry (%) 96 Oxygen Delivery Method Room Air Intake Visit Reasons: bilateral leg pain and shingles Intake Note: Patient is here to follow up on Bilateral leg pain and shingles. Outside Machinist Helper Required: No Director Surface Transportation: Present Accompanied by: Son Allergies buspirone Allergy (Intermediate, Verified 11/01/24 11:16) Rash Sulfa (Sulfonamide Antibiotics) Allergy (Intermediate, Verified 11/01/24 11:16) RASH cefuroxime Allergy (Unknown, Verified 11/01/24 11:16) Unknown garlic [GARLIC] Allergy (Unknown, Verified 11/01/24 11:16) PER H&P metronidazole [From FLAGYL] Allergy (Unknown, Verified 11/01/24 11:16) OCULAR MIGRAINES penicillamine Allergy (Unknown, Verified 11/01/24 11:16) Unknown ciprofloxacin Adverse Reaction (Intermediate, Verified 11/01/24 11:16) neuropathic pain lisinopril Adverse Reaction (Intermediate, Verified 11/01/24 11:16) Cough nitrofurantoin Adverse Reaction (Mild, Verified 11/01/24 11:16) GI side effects cefuroxime Allergy (Intermediate, Uncoded 11/01/24 11:16) wheezy cough/itch flagyl Allergy (Unknown, Uncoded 11/01/24 11:16) Unknown From KEFLEX Allergy (Unknown, Uncoded 11/01/24 11:16) RASH Metoprolol Tartrate Allergy (Unknown, Uncoded 11/01/24 11:16) Unknown Sulfacet-R Allergy (Unknown, Uncoded 11/01/24 11:16) Unknown Medication List - Last Reconciled 11/01/24 by Huma Garcia MD acetaminophen (Tylenol) 325 mg PO Q4H PRN albuterol sulfate 90 mcg/actuation 2 puffs inhalation Q4-6H PRN alprazolam 0.25 mg PO BID cholecalciferol (vitamin D3) (Vitamin D3) 50 mcg PO DAILY clopidogrel 75 mg PO QAM fluticasone propion-salmeterol 250-50 mcg/dose (Advair Diskus) 1 inh inhalation BID fluticasone propionate 50 mcg/actuation sprays intranasal folic acid 0.4 mg PO DAILY losartan 25 mg PO DAILY 90 days mirabegron ER (Myrbetriq) 25 mg PO DAILY 90 days mirtazapine 10.5 mg PO BEDTIME pantoprazole (Protonix) 40 mg PO DAILY Tobacco use date assessed: 11/01/24 Fall risk assessment: No Falls in past year Last assessed Fall Risk: 11/01/24 Dental Screening Dental Screen Date: 09/12/24 [facility] Medical History (Updated 09/29/24 @ 11:40 by ROMAINE Leigh) Pulmonary nodule Chest pain URI (upper respiratory infection) HTN (hypertension) Cough Heart palpitations Constipation LLQ abdominal pain Anxiety Breast cancer screening Breast pain, left Elevated vitamin B12 level Neck muscle spasm Strain of neck muscle Low back pain Pubic ramus fracture Sore throat Skin tear of upper arm without complication Head injury, acute, without loss of consciousness Fall Dizziness Medication noncompliance due to cognitive impairment RLQ abdominal pain Sinusitis Flu syndrome Precordial chest pain Atypical chest pain Cold intolerance Former smoker Abnormal lung sounds Fever Bilateral calf pain Nausea Left lower quadrant abdominal pain Dysuria Fatigue Lower extremity weakness Aortic stenosis Obstipation Dark stools Lower abdominal pain Gastroenteritis Neck pain on right side Back pain Rhinitis Elevated BP without diagnosis of hypertension Non-rheumatic aortic stenosis Diverticulitis GERD (gastroesophageal reflux disease) Cat scratch Cat bite Epigastric discomfort Diarrhea Nausea Viral syndrome GERD (gastroesophageal reflux disease) Neuropathy Arthritis GERD (gastroesophageal reflux disease) HTN (hypertension) Irritable bowel Heart murmur Surgical History S/P TAVR (transcatheter aortic valve replacement) Hx of esophagogastroduodenoscopy Hx of colonoscopy History of tonsillectomy History of appendectomy Family History Father No problems noted. Mother No problems noted. Social History Household Members: Children Housing: House Are you a primary healthcare representative to a significant other at home: No Do you presently have visiting nurse or other home services: No Alcohol intake: former Patient Tobacco Use Status: Former Tobacco user Tobacco use type: Cigarette e-Cigarette/Vaping Use: Never Used Second Hand Smoke Exposure: Yes Advance Directives Date on File: 09/21/23 service: No Current occupational status: retired Cognitive needs: No Hearing needs: No Vision needs: Yes (glasses) Questionnaire Thrive Questionnaire Date Thrive assessed: 09/12/24 PAIGE-7 AMB Questionnaire PAIGE-7 Date PAIGE - 7 assessed: 09/12/24 Source: Developed by Drs. Anatoliy Gavin, Peyton Hunt, Austyn Weber and colleagues, with an educational kentrlel from [employer]. Physical exam (Primary Care) Vital Signs: Last Vital Signs Temp 97.3 F 11/01/24 11:17 Pulse 97 11/01/24 11:17 BP 130/70 11/01/24 11:17 Pulse Ox 96 11/01/24 11:17 Oxygen Delivery Method Room Air 11/01/24 11:17 BMI result Body Mass Index 29.0 Tobacco/Smoking Status: Tobacco use Status Tobacco use date assessed 11/01/24 11/01/24 11:25 Patient Tobacco Use Status Former Tobacco user 11/01/24 11:25 Tobacco use type Cigarette 11/01/24 11:25 e-Cigarette/Vaping Use Never Used 11/01/24 11:25 Thrive Assessment: Date of Thrive Assessment Date Thrive assessed 09/12/24 11/01/24 11:25 Const General: alert; No acute distress Eyes Conjunctivae: conjunctivae normal Resp Auscultation: clear to auscultation bilaterally Cardio Rate: regular rate Rhythm: regular rhythm GI Inspection: Yes normal to inspection Extrem General: Yes normal to inspection and No edema Coding Level of Care Code Est Pt Level 4 (03214) Diagnoses Primary hypertension I10 Hypertension type: primary hypertension S/P TAVR (transcatheter aortic valve replacement) Z95.2 COPD (chronic obstructive pulmonary disease) J44.9 Generalized anxiety disorder F41.1 Assessment & Plan Assessment & Plan (1) HTN (hypertension): Code(s): I10 - Essential (primary) hypertension Category: Medical Qualifiers: Hypertension type: primary hypertension Qualified Code(s): I10 - Essential (primary) hypertension Plan: Patient is on losartan 25 mg once a day (2) S/P TAVR (transcatheter aortic valve replacement): Code(s): Z95.2 - Presence of prosthetic heart valve Category: Surgical Plan: Patient is advised to follow-up with cardiology (3) COPD (chronic obstructive pulmonary disease): Code(s): J44.9 - Chronic obstructive pulmonary disease, unspecified Category: Medical Plan: Patient has followed up with Pulmonary on albuterol inhaler and placed on Advair (4) Generalized anxiety disorder: Comment: abhilash mcdonald Code(s): F41.1 - Generalized anxiety disorder Category: Medical Plan: Continue with mirtazapine. Plan History of Present Illness The patient is an 84-year-old female presenting with follow-up for her chronic conditions, notably COPD and anxiety management. Diagnosed with multiple chronic illnesses such as aortic stenosis post-AVR, COPD, and generalized anxiety disorder, she has been actively managing her conditions. This includes the use of inhalers for respiratory issues, and continued utilization is encouraged. A nxiety management has involved emergency visits and continued medication with mirtazapine. Additionally, she experiences anemia stable at 10.5 g/dL over the past year, with recently stable labs across renal and liver function tests. 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 Health Maintenance - Advised on adequate fluid intake. - Emphasized importance of consistent exercise and physical activity. - Reviewed medication schedule and adherence for current prescriptions. Social History - Engages in regular exercise using a basement exercise machine. - Expresses desire for increased social interaction and attendance at community centers. Review of Systems - General: Denies significant fatigue affecting daily activities. - Psychiatric: Reports having anxiety episodes. - Respiratory: Denies worsened shortness of breath or recent exacerbations. - Musculoskeletal: Reports joint discomfort, particularly in knees. Physical Exam Results - Labs: Hemoglobin 10.5 g/dL, electrolytes normal, renal and liver function tests normal. - Imaging/Tests: No changes in pulmonary nodule status from previous evaluations. Plan The patient will maintain her medication regimen for COPD and anxiety, with regular use of inhalers and mirtazapine. We will monitor her anemia, with close attention to hemoglobin levels. Given her stable conditions, no alteration in management is currently warranted for leukemia. Encouraged social engagement through community resources. Patient was informed and verbally consented to the use of an ambient scribe for clinic note documentation during this visit. Discussion Notes I discussed at length the current management strategy for the patient's chronic conditions, including the balance between medication adherence and lifestyle interventions. We reviewed each medication's purpose and the tailored recommendations for COPD and anxiety management, including inhaler use and daily activities to enhance overall well-being. Patient was encouraged to explore social centers for improved mental health support. We mutually agreed on the continued monitoring strategy, with anticipatory guidance for specific symptoms requiring urgent intervention. Patient Instructions - Continue all current medications as prescribed. - Utilize exercise equipment for regular daily activity. - Engage in community activities for social interaction. - Monitor any significant changes in health or onset of new symptoms. - Return for follow-up according to the discussed schedule. Medications: Changed From mirabegron ER (Myrbetriq) 25 mg PO DAILY 30 days 30 tabs 1RF N30.10 - Interstitial cystitis (chronic) without hematuria, N32.81 - Overactive bladder, R35.1 - Nocturia, R39.15 - Urgency of urination To mirabegron ER (Myrbetriq) 25 mg PO DAILY 90 tabs 3RF 90 days N30.10 - Interstitial cystitis (chronic) without hematuria, N32.81 - Overactive bladder, R35.1 - Nocturia, R39.15 - Urgency of urination Refilled cholecalciferol (vitamin D3) (Vitamin D3) 50 mcg PO DAILY 90 tabs 3RF
[2024-11-01 11:17] VITALS: BP 130/70; PULSE 97; TEMP 36.3; O2SAT 96; BMI 29.0
--- OUTSIDE RECORDS SUMMARY | 2024-11-01 13:10 | XMS_ITS | Data Portability ---
Author Organization [facility] Internal [facility], Home Service Address [address] [place] [address] Assessment No assessment recorded. Plan of Treatment Reminders Order Date Submit Date Provider Last Modified By Organization Details Last Modified Time Details Appointments None recorded. Lab BMP, blood [address] Internal Medicine, [address] [place] [address], [facility], [place], [address], 9 07:42:19 lipid panel, blood [address] Internal Medicine, [address] [place] [address], [facility], [place], [address], 9 07:42:20 Referral None recorded. Procedures None recorded. Surgeries None recorded. Imaging None recorded. Medication Orders Cipro 500 mg tablet 2018 019 [id number] [address] [place], [place], [id number], 9 11:53:38 Zithromax Z-Rajesh 250 mg tablet 2018 019 [facility] #[id number], [address] [place], [place], [id number], 9 11:53:23 metoprolol succinate ER 25 mg tablet,exte nded release 24 hr 2018 [facility] [address] [place], [place], [id number], 9 11:15:40 Patient Targets Encounter Date Encounter Id Patient Goals Patient Target Last Modified By Organization Details Last Modified Time Call therapist to schedule counseling marilynn Not available 09/26/2018 11:54:07 Patient Instructions Encounter Date Encounter Id Patient Instructions Last Modified By Organization Details Last Modified Time 09/21/2018 [id number] Relaxation, reconsider escitalopram- will review at f/u next week to avoid dual med starting together marilynn Not available 09/21/2018 15:27:44 09/26/2018 [id number] pulse oximetry* marilynn Not available 09/26/2018 11:54:08 10/08/2018 [id number] Acute Sinusitis: Care Instructions marilynn Not available 10/08/2018 11:28:17 pulse oximetry* marilynn Not available 10/08/2018 11:28:17 12/04/2018 [id number] pulse oximetry* marilynn Not available 12/04/2018 12:22:51 Reason for Referral None Reported. Results Created Date Observation Date Name Description Value Unit Range Abnormal Flag Note LastModifiedBy Organization Detail LastModifiedTime 09/26/19 19 09/26/2018 pulse oxime try* Result 96 Not Available [facility] [address], [address], 09/26/2018 11:15:30 10/08/19 19 10/08/2018 pulse oxime try* Result 97 Not Available [facility] [address], [address], 10/08/2018 11:18:00 12/05/19 19 12/04/2018 pulse oxime try* Result 97 Not Available [facility] [address], [address], 12/04/2018 11:55:20 Result Notes None recorded. Problems Name Problem SNOMED Code Status Onset Date Resolution Date Notes Provider Name and Address Organization Details Recorded Time Abdominal aortic aneurysm 191505689 Active 2017 Samina Lama NP, [address] [place], [address], [facility] 8 13:58:39 Diverticul itis 140679460 Active 2017 Tainaronnell Hanson [facility] 8 16:58:14 Chronic obstructiv e pulmonary disease 06866376 [facility] 8 16:58:22 Aortic valve stenosis 75113175 [facility] 8 16:58:36 Anxiety 29999447 Active 2017 [facility] 8 16:58:45 Cystocele 642835739 Active 2017 [facility] 8 16:58:58 Problem Notes None recorded. Medical Equipment None Reported. Allergies Allergen ID Allergen Name Allergen Category Reaction Reaction Severity Criticality Documentation Date Start Date Code Code System Note Provider Name and Address Organization Details Recorded Time 1547 Substance with sulfonami de structure and antibacte rial mechanism of action (substanc e) medicatio n Not available Not available Not available 02/06/2018 35710 8003 SNOMED Tainaronnell Hanson [facility] 8 16:57:43 1548 Keflex medicatio n Not available Not available Not available 02/06/2018 7 RxNorm Tainaronnell Hanson [facility] 8 16:57:55 2328 Flagyl medicatio n other moderate Not available 05/29/201872898 6 RxNorm Tainaronnell Hanson [facility] 8 11:44:55 2717 metoprolo l Not available chest pain Not available Not available 09/21/2018 6918 RxNorm Tainaronnell Hanson [facility] 9 16:31:23 Medications Name Sig Start Date [...] % 128 mm[Hg] 84 mm[Hg] Taina Hanson [facility] 9 14:32:26 Date Recorded Body height Heart rate Oxygen saturation Oxygen saturation in Arterial blood by Pulse oximetry Systolic blood pressure Diastolic blood pressure Provider Name and Address Organization Details Last Updated DateTime 9 168.91 cm 90 /min 96 % 96 % 124 mm[Hg] 80 mm[Hg] Eunice Molina [facility] 9 11:17:24 Date Recorded Body height Oxygen saturation Oxygen saturation in Arterial blood by Pulse oximetry Heart rate Body temperature Systolic blood pressure Diastolic blood pressure Provider Name and Address Organization Details Last Updated DateTime 9 168.91 cm 97 % 97 % 112 /min 98.2 [degF] 142 mm[Hg] 86 mm[Hg] Tainaronnell Hanson [facility] 9 11:17:37 Date Recorded Heart rate Provider Name an d Address Organization Details Last Updated DateTime 10/08/2018 84 /min Samina Lama NP, S [address] [place], [address], [facility] 10/08/2018 11:28:37 Date Recorded Body height Heart rate Oxygen saturation Oxygen saturation in Arterial blood by Pulse oximetry Systolic blood pressure Diastolic blood pressure Provider Name and Address Organization Details Last Updated DateTime 9 168.91 cm 105 /min 98 % 98 % 140 mm[Hg] 80 mm[Hg] [facility] 9 11:45:01 Date Recorded Heart rate Provider Name an d Address Organization Details Last Updated DateTime 10/19/2018 80 /min Samina Lama NP, S [address] [place], [address], [facility] 10/19/2018 12:04:58 Date Recorded Body height Body mass index (BMI) Body weight Oxygen saturation Oxygen saturation in Arterial blood by Pulse oximetry Heart rate Systolic blood pressure Diastolic blood pressure Provider Name and Address Organization Details Last Updated DateTime 9 168.91 cm 31.1 kg/m2 00057.6 7 g 97 % 97 % 97 /min 120 mm[Hg] 90 mm[Hg] Dahiana Ha [facility] 9 11:56:24 Social History Question Answer Notes LastModified by Organizat ion Details LastModified Time Tobacco Smoking Status Former Smoker Not Available [facility] 07/07/2020 03:36:24 What Was The Date Of Your Most Recent Tobacco Screening? 12/04/2018 [id number] Information not available 07/07/2020 Sex: Unknown Functional [...] virus, quadrivalent, preservative 8 completed Eunice damon [facility] 09/26/2018 11:16:26 Past Encounters Encounter ID Performer Location Encounter Start Date Encounter Closed Date Diagnosis/Indication Diagnosis SNOMED-CT Code Diagnosis ICD10 Code Diagnosis Note [id number] Samina Lama NP, S [facility] [address] [facility],[place] [address] 02/07/2018 11:02:27 02/07/2018 16:46:02 Anxiety 86140133 F41.9 Nail changes 617251540 L 60.9 Abdominal aortic aneurysm 428117247 I71.4 CT 11/2017, no changes 2016, 2.85 cm Aortic david nosis, non-rheumatic 131019055 I35.0 stable Gastroesop hageal reflux disease 361979564 K21.9 d/c yajaira mints, call if persists Insomnia 750816473 G47.0 0 review proper sleep hygiene be more active during day avoid naps [id number] Samina Lama NP, S [facility] [address] [facility],[place] [address] 03/16/2018 11:29:23 03/20/2018 08:12:01 Dehydration 25375497 E86.0 Gastroenteritis 54628833 K52.9 Aortic valve stenosis 60 316924 I35.0 stable, follow [id number] Samina Lama NP, S [facility] [address] [facility],[place] [address] 05/16/2018 13:23:14 05/16/2018 14:06:44 Anxiety 91299611 F41.9 BID lorazepam helps Aortic valve stenosis 60 519430 I35.0 stable, echo 05/31/2017 Active or passive immunization 304021917 Z23 Abdominal aortic aneurysm 351676333 I71.4 CT 11/2017, no changes 2016, 2.85 cm Chronic ob structive pulmonary disease 67174943 J44.9 Non smoker X years, asymptomat ic Diverticular disease 397 626942 K57.90 no recent flare [id number] Samina Lama NP, [facility] [address] [facility],[place] [address] 05/29/2018 11:40:58 05/29/2018 16:52:51 Aortic valve stenosis 18543836 I35.0 stable, echo 05/31/2017 Anxiety 21185045 F41.9 BID lorazepam helps, discussed current fears re: Constipation 24218107 K5 9.00 [id number] Samina Lama NP, S [facility] [address] [facility],[place] [address] 08/14/2018 11:20:27 08/14/2018 17:00:16 Anxiety 66097785 F41.9 BID lorazepam helps, discussed current fears Aortic valve stenosis 60 136268 I35.0 stable, echo 05/31/2017 Diverticulitis 359566598 K57.92 Increased frequency of urination 273949175 R35.0 [id number] Samina Lama NP, S [facility] [address] [facility],[place] [address] 08/20/2018 11:12:33 08/20/2018 12:20:46 Anxiety 72867867 F41.9 BID alprazolam helps, discussed current fears Diverticulitis 325041433 K57.92 Aortic valve stenosis 60 462482 I35.0 stable, echo 05/31/2017 Family problems 80267433 4 Z63.79 Suggest therapy, names provided. Pt agrees [id number] Samina Lama NP, S [facility] [address] [facility],[place] [address] 09/12/2018 10:19:31 09/12/2018 20:18:16 Abdominal aortic aneurysm 390055001 I71.4 CT 11/2017, no changes 2016, 2.85 cm Chronic ob structive pulmonary disease 08591675 J44.9 Non smoker X years, asymptomat ic Anxiety 23272438 F41.9 BID alprazolam helps, discussed current fears Aortic valve stenosis 60 023469 I35.0 stable, echo 05/31/2017 [id number] Samina Lama NP, [facility] [address] [facility],[place] [address] 09/21/2018 14:26:58 09/25/2018 11:17:00 Anxiety 70264552 F41.9 discussed current fears again, see below Aortic valve stenosis 60 086538 I35.0 [id number] Samina Lama NP, S [facility] [address] [facility],[place] [address] 09/26/2018 11:12:05 09/26/2018 13:02:53 Hypertensive disorder 94600077 I10 Chronic ob structive pulmonary disease 65008754 J44.9 Non smoker X years, asymptomat ic Anxiety 02997973 F41.9 discussed current fears again, see below Aortic valve stenosis 60 067068 I35.0 [place] [id number] Samina Lama NP, [facility] [address] [facility],[place] [address] 10/08/2018 11:12:38 10/08/2018 14:35:10 Cough 69854851 R05 Acute sinusitis 02382162 J01.90 Anxiety 85035927 F41.9 revisited [id number] Samina Lama NP, S [facility] [address] [facility] [address] 10/19/2018 11:41:00 10/19/2018 12:37:34 Diverticulitis 148580820 K57.92 Intolerant Flagyl Anxiety 06627893 F41.9 revisited Aortic valve stenosis 60 390545 I35.0 asymptomat ic Abdominal aortic aneurysm 844645553 I71.4 CT 11/2017, no changes 2016, 2.85 cm Chronic ob structive pulmonary disease 32181547 J44.9 Non sm[place], [place] [id number] Samina Lama NP, S [facility] [address] [facility] [address] 12/04/2018 11:49:58 12/04/2018 16:03:42 Chronic obstructive pulmonary disease 69578239 J44.9 Non smoker X years, asymptomat ic Anxiety 07958953 F41.9 revisited Aortic valve stenosis 60 128167 I35.0 asymptomat ic Health Concerns Section Related Observation LastModified by Organization Detai ls LastModified Time None Recorded Concern Status LastModified by Organization Details LastModified Time None Recorded Advance Directives Directive None Recorded Payers Encounter Date Sequence Insurance Name Policy Number Policy Berry Covered Member ID Berry Member ID Guarantor Name 09/21/2018 2 [facility] [id number] Bella Knappel [id number] Bella [place] 09/21/2018 1 MEDICARE [place]: [employer] Bella Henley [id number] Bella Henley 09/26/2018 2 [facility] [id number] Bella Keith Kale [id number] Bella Henley 09/26/2018 1 MEDICARE [place]: [employer] Bella Henley [id number] Bella Henley 10/08/2018 2 [facility] [id number] Bella Henley [id number] Bella Henley 10/08/2018 1 MEDICARE [place]: [facility] Bella Henley [id number] Bella Henley 10/19/2018 2 [facility] [id number] Bella Henley [id number] Bella [place] 10/19/2018 1 MEDICARE [place]: [facility] Bella Henley [id number] Bella Henley 12/04/2018 2 [facility] [id number] Bella Henley [id number] Bella Henley 12/04/2018 1 MEDICARE [place]: [facility] Bella Henley [id number] Bella Henley Notes Date Note Type Note Provider Name a nd Address Organization Details Recorded Time 09/21/2018 text/html Here with concer ns BP had panic attack this am, ambulance was called Checked BP after pts episode was 158/101 Did not start escitalopram prescribed last week , under a great deal of stress Samina Lama NP, S [address] [place], [address], [facility] 09/21/2018 15:27:56 09/26/2018 text/html [...] complete ADL's Samina Lama NP, S [address] [place], [address], [facility] 09/26/2018 11:54:50 10/08/2018 text/html [...] family situation Samina Lama NP, S [address] [place], [address], [facility] 10/08/2018 11:49:45 10/19/2018 text/html Yesterday felt o k last night 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 this a.m. also increased voiding w/no dysuria no N/V/D/C, no BRBPR or hematuria Samina Lama NP, S [address] [place], [address], [facility] 10/19/2018 12:09:27 12/04/2018 text/html Very anxious re: husbands cognitive decline/getting worn out In therapy w/Peter Dopp Son also recent renal cancer, surgery went well.-but pt. gets worked up over everything pt recently started back on allergy shots some heartburn and post nasal drip Samina Lama NP, S [address] [facility], [place], [address], [facility] 12/04/2018 12:23:16 OBGyn Episode No OBEpisode recorded.
--- OUTSIDE RECORDS SUMMARY | 2024-11-01 13:10 | XMS_ITS | Patient Health Record ---
[facility] Address [address] [place] [address] Care Team Providers Care Client Technologies Analyst Name Role Phone Huma Garcia Primary Care Provider Kwadwo Guillen Unavailable [phone] Julieth Rosa Unavailable [phone] Allergies Allergen (clinical drug ingredient) Drug/Non Drug [...] days Active Mucinex PRN Active CO-Q 10 Ericson-3 Fish Oil Not-Taking Aspir-81 Not-Taking CeleXA Not-Taking [...] Problem Acquired hammer toe of left foot (6893277086497785 ) Other hammer toe(s) (acquired), left foot (M20.42) Active confirmed Problem Atherosclerosis of [place] arteries of the extremities (146783900355314) Atherosclerosis of [place] artery of both lower extremities, with unspecified presence of clinical manifestation (I70.203) Active confirmed Q7(A), Q8(2B), Q9(1B,2C) Problem Localized, primary osteoarthritis of the ankle and/or foot (756079247) Arthritis of joint of lesser toe, left [...] Ordered Date Performed Result Body Sit e 68815-ZMKLJHY NAIL, 6 OR MORE 11/10/2023 N/A 49145- Debride <25 sq cm 11/10/2023 N/A 76339-VTXO SKIN LESIONS, OVER 4 11/10/2023 N/A 46108-WJMVYGM NAIL, 6 OR MORE 04/16/2024 N/A 61119-BMXJ SKIN LESIONS, OVER 4 04/16/2024 N/A 03725-RLRAIBR NAIL, 6 OR MORE 09/25/2024 N/A 49802-FEKR SKIN LESIONS, OVER 4 09/25/2024 N/A Encounters Encounter Location Date Provider Diagnosis [address] [address] 11/10/2023 Kwadwo Hendricks Atherosclerosis of n ative artery of both lower extremities, with unspecified presence of clinical manifestation I70.203 ; Tinea unguium B35.1 ; Pain in right toe(s) M79.674 ; Pain in left toe(s) M79.675 and Skin ulcer of toe of left foot, limited to breakdown of skin L97.[address] [address] 04/16/2024 Kwadwo Hendricks Skin ulcer of toe of left foot, limited to breakdown of skin L97.521 ; Tinea unguium B35.1 ; Atherosclerosis of [place] artery of both lower extremities, with unspecified presence of clinical manifestation I70.203 ; Pain in right toe(s) M79.674 and Pain in left toe(s) M79.675 [facility] [address] [address] 09/25/2024 Kwadwo Hendricks Atherosclerosis of n ative artery of both lower extremities, with unspecified presence of clinical manifestation I70.203 ; Tinea unguium B35.1 ; Pain in right toe(s) M79.674 and Pain in left toe(s) M79.[address] [address] 10/11/2024 Julieth Perica Ischemic ulcer of le ft foot, limited to breakdown of skin L97.521 ; Other hammer toe(s) (acquired), left foot M20.42 ; Pain in left toe(s) M79.675 ; Arthritis of joint of lesser toe, left M19.072 and Subluxation of metatarsophalangeal joint of toe, initial encounter S93.149A [facility] [place] [address] [place] [address] 02/13/2024 Kwadwo Hendricks [facility] [address] [address] 04/16/2024 Kwadwo Hendricks [facility] [place] [address] [facility] [address] [place] [address] 10/07/2024 Kwadwo Hendricks [facility] [address] [address] 10/09/2024 Kwadwo Ruthie [facility] [address] [address] 10/10/2024 Kwadwo Hendricks [facility] Encounter Date Diagnosis (ICD Code) Assessment Notes Treatment Notes Treatment Clinical Notes Section Notes 11/10/2023 Tinea unguium (ICD-1 0 - B35.1) 11/10/2023 Atherosclerosis of [place] artery of both lower extremities, with unspecified presence of clinical manifestation (ICD-10 - I70.203) 04/16/2024 Tinea unguium (ICD-1 0 - B35.1) 04/16/2024 Skin ulcer of toe of left foot, limited to breakdown of skin (ICD-10 - L97.521) 09/25/2024 Atherosclerosis of [place] artery of both lower extremities, with unspecified presence of clinical manifestation (ICD-10 - I70.203) Q7(A), Q8(2B), Q9(1B,2C) 10/11/2024 Other hammer toe(s) (acquired), left foot (ICD-10 - M20.42) 10/11/2024 Ischemic ulcer of le ft foot, limited to breakdown of skin (ICD-10 - L97.521) 10/11/2024 Pain in left toe(s) (ICD-10 - M79.675) 09/25/2024 Tinea unguium (ICD-1 0 - B35.1) 04/16/2024 Atherosclerosis of [place] artery of both lower extremities, with unspecified [...] Name Order Date *Uric Acid, Serum 11/27/2020 66141-ZTYKLZH NAIL, 6 OR MORE 03/23/2021 23794-KNFNIXA NAIL, 6 OR MORE 11/23/2021 95625-WVMBXPL NAIL, 6 OR MORE 09/20/2022 70736-DZRZQOO NAIL, 6 OR MORE 01/06/2023 84641-FSIIMYS NAIL, 6 OR MORE 06/13/2023 69566-VFTNTDI NAIL, 6 OR MORE 12/02/2011 93532-LIQJONR NAIL, 6 OR MORE 07/10/2012 13666-QJUXLSS NAIL, 6 OR MORE 03/24/2015 72420-LMBQXAB NAIL, 6 OR MORE 07/19/2016 78342-MWXYQNI NAIL, 6 OR MORE 08/25/2017 63578-KVYCQIH NAIL, 6 OR MORE 11/24/2017 11686-PWXBLZA NAIL, 6 OR MORE 02/02/2018 63679-LBQYLFO NAIL, 6 OR MORE 08/07/2018 24025-NOOYXRW NAIL, 6 OR MORE 04/16/2019 64068-IFALCFD NAIL, 6 OR MORE 03/20/2020 55197-SKFCVHV NAIL, 6 OR MORE 06/12/2020 63247-QSSAOXZ NAIL, 6 OR MORE 11/10/2023 46875-SCPUTRK NAIL, 6 OR MORE 10/10/2014 79346-LRBFIHD NAIL, 6 OR MORE 04/06/2012 28464-RRKLSAM NAIL, 6 OR MORE 09/08/2020 86567-YGYAICY NAIL, 6 OR MORE 04/16/2024 83182-TGZOMNK NAIL, 6 OR MORE 09/25/2024 27270-XOZODFX NAIL, 6 OR MORE 01/10/2017 67580-Fekwqwqm Plate 09/08/2020 91613-Divjmbkp Plate 06/12/2020 73782-Mlvjlqaj Plate 03/20/2020 67358-Dixzytmv Plate 04/16/2019 73904-Levuiwfl Plate 06/13/2023 65503-Uvmrrdxb Plate 09/20/2022 67885-Bsllqldh Plate 11/23/2021 43753-Vbyruner Plate 03/23/2021 15807-Cceblybf Plate Each Additional 12434-Rmaeolzk Plate Each Additional 06989- Debride <25 sq cm 11/25/2022 42600- Debride <25 sq cm 02/10/2023 64257- Debride <25 sq cm 03/24/2015 55616- Debride <25 sq cm 11/10/2023 55808- Debride <25 sq cm 12/31/2021 16633-NWPR SKIN LESIONS, OVER 4 09/25/19 25 23728-QUCV SKIN LESIONS, OVER 4 04/16/20 24 14183-VSSU SKIN LESIONS, OVER 4 11/10/19 24 72444-VKBR SKIN LESIONS, OVER 4 06/13/20 23 94961-HEAP SKIN LESIONS, OVER 4 09/20/19 23 56829-UXSH SKIN LESIONS, OVER 4 01/07/20 23 90310-TMJM SKIN LESIONS, 2 TO 4 11/24/19 22 , B3521-OZPWI/INJECT, JOINT/BURSA 0 09/08/2020 59027 - Tenotomy, open flexor 12/01/2017 Next Appt Details Provider Name:Kwadwo Hendricks , 12/27/2024 12:00:00 PM, [address] [place] [address], [address], Insurance Providers Payer Name Payer Address Payer Phone Subscriber Number Group Number Insured Name Patient Relationship to Insured Coverage Start Date Coverage End Date Medicare National [facility] [address] [place] [address] [id number] Bella Henley Self - patient is the insured [facility] [address] [place] [address] [id number] Bella Henley Self - patient is the insured Medical (General) History Medical History History ICD Code back, hip, knee pain transfusions reflux measles chicken pox Anxiety disorder Peripheral neuropathy Fractured Pelvis, Left - 06/2023 Surgical History Surgery Date(Month/Year) tonsillectomy appendectomy intestinal blockage 11/2013 Hospitalization History Reason Date(Month/Year) [facility] for Pelvis 06/2023 [facility]- Chest pain and Dizziness 06/2023 [facility]- stomach pains - Gerd /IBS due to anxiety 01/2021,02/2021 Patient admitted to [facility] x [facility] days; diverticulitis 12/2014
--- OUTSIDE RECORDS SUMMARY | 2024-11-01 13:11 | XMS_ITS | Patient Health Record ---
Author Organization [facility] Address [address] [place] [address] Care Team Providers Care Supervisor Home Economics Name Role Phone Nick Gomez Primary Care Provider Unavailab le Anatoliy Escobar Unavailable [phone] ALLERGIES Allergen (clinical drug ingredient) Drug/Non Drug Allergy documented on EMR Reaction Allergy Type Onset Date Status Sulfa Unknown Drug Allergy Active metronidazole Flagyl Unknown Drug Allergy Act maya amoxicillin / clavulanate Augmentin Unknown Drug Allergy Active garlic (uncoded) Unknown Allergy Act maya RESULTS Component Value Reference Range Notes US abdomen limited Reviewed date:11/23/2023 12:05:43 AM Interpretation: Performing Lab: Notes/Report: [address] [address] Ultrasound Report Signed with Demetra Patient: Bella Henley MR#: [id number] 7 : 1940 Acct:[id number] Age/Sex: 83 / F ADM Date: 11/17/23 Loc: HO.US Attending Dr: Anatoliy Escobar MD Ordering Physician: Anatoliy Escobar Date of Service: 11/17/23 Procedure(s): US abdomen limited Accession Number(s): [id number] cc: Nick Gomez PA-C; Anatoliy Escobar ADDENDUM Please disregard felt machine mechanic inconsistencies in impression of original report regarding [...] in OV> 11/20/23 0507 DD/ 0940 TD/TT: Supply Specialist: Complete Blood Count no Diff Reviewed date:01/30/2024 11:58:10 AM Interpretation: Performing Lab:[facility], [address] [place] [address] Notes/Report: White Blood Count 3.9 4.8-10.8 X10*3/uL [...] Reviewed date:01/30/2024 11:38:45 PM Interpretation: Performing Lab:[address] [address] Notes/Report: Bilirubin Total 0.6 0.0-1.0 mg/dL Bilirubin Direct 0.2 0.0-0.5 mg/dL Aspartate Amino Transferase 16 5-31 U/L Alanine Aminotransferase 8 0-31 U/L Total Protein 7.4 6.5-8.0 g/dL Albumin Level 4.1 3.5-5.0 g/dL Alkaline Phosphatase 141 39-117 U/L IRON PROFILE Reviewed date:01/30/2024 11:58:22 AM Interpretation: Performing Lab:[facility], [address] [place] [address] Notes/Report: Iron 60 30-160 mcg/dL Total Iron Binding Capacity 298 228-428 mcg/d L Percent Iron Saturation 20 15-50 % Unsaturated Iron Binding 238 Urine Culture Reviewed date:02/01/2024 12:40:02 PM Interpretation: Performing Lab:[address] [address] Notes/Report: Urine Culture Report Result Urine Culture 10,000 to 50,000 cfu/ml Urine Culture Mixed bacterial jeffrey a characteristic of Urine Culture urogenital contamination. UA ClnCatch+Micro w/rflx Cul t Reviewed date:01/30/2024 11:57:48 AM Interpretation: Performing Lab:[facility], [address] [place] [address] Notes/Report: Urine, Clean Catch Color Urine Yellow Appearance Urine Cloudy PH 5.0 5.0-9.0 Glucose Urine UA Negative Negative mg/dL Urine Blood Negative Negative Specific [place] - Urine 1.025 1.005-1.025 Urine Protein Negative [...] Notes Problem Rectal bleeding (K62.5) Active confirmed 19190778 Problem Diverticulitis of large intestine without perforation or abscess without bleeding (K57.32) Active confirmed 9127099 Problem History of adenomatous polyp of colon (Z86.010) Active confirmed 241128791 Problem Irritable bowel syndrome with diarrhea (K58.0) Active confirmed 141539914 Problem Irritable bowel syndrome without diarrhea (K58.9) Active confirmed 77974495 Problem Elevated liver function tests (R79.89) Active confirmed Elevated liver enzymes level (507708507) Problem Diverticulosis (K57.90) Active confirmed 859344288 Problem Gastroesophageal reflux disease without esophagitis (K21.9) Active confirmed 624776916 Problem Heme + stool (R19.5) Active confirmed 41359380 Problem Hiatal hernia (K44.9) Active confirmed Hiatal hernia (38175909) Problem GERD (gastroesophageal reflux disease) (K21.9) Active confirmed Gastroesophagea l reflux disease (090729929) Problem Abnormal CT scan, sigmoid colon (R93.3) Active confirmed 371016975 Problem Elevated alkaline phosphatase level (R74.8) Active confirmed Alkaline phosphatase raised (203741690) Problem Irritable bowel syndrome with constipation (K58.1) Active confirmed 878417567 Problem Irritable bowel syndrome with both constipation and diarrhea (K58.2) Active confirmed 59747722 Problem LLQ abdominal pain (R10.32) Active confirmed 999772694 Problem Gastroesophageal reflux disease, unspecified whether esophagitis present (K21.9) Active confirmed 027237915 Encounters Encounter Location Date Provider Diagnosis [facility] [address] [place] [address] 03/06/2024 Anatoliy Escobar [facility] [address] [place] [phone] 03/06/2024 Anatoliy Escobar [facility] [address] [place] [address] 11/07/2023 Anatoliy Escobar [facility] [address] [place] [address] 11/15/2023 Anatoliy Escobar Elevated liver function tests R79.89 and Elevated alkaline phosphatase level R74.8 [facility] [address] [place] [address] 11/21/2023 Anatoliy Shawn [facility] [address] [place] [address] 12/28/2023 Anatoliy Escobar [facility] [address] [place] [address] 03/05/2024 Anatoliy Escobar [facility] [address] [place] [address] 06/14/2024 Anatoliy Escobar ASSESSMENTS Encounter Date Diagnosis [...] End Date MEDICARE OF [place] [address] [place] [address] [phone] [id number] BELLA HENLEY Self - patient is the insured [facility] [employer] [address] [place] [address] [id number] BELLA HENLEY Self - patient is the insured MEDICAL (GENERAL) HISTORY Medical History History ICD Code Colon and EGD 06-07-2007--no polyps, but diverticulosis; hiatal hernia GERD--EGD in September of 2012 with the finding of a minimal hiatal hernia and gastritis, with biopsies negative for H. pylori and negative for Aldana's esophagus Personal history of colon polyps-tubular adenomas removed in 2003 and 09/2012 Denies MA,DM,CVA,renal disease COPD Colonoscopy 09/2012-small tub ular adenomas removed, mild sigmoid diverticulosis, and small internal hemorrhoids Diverticulitis--Spring 2014 at [facility]--salty parag with IV antibiotics Colonoscopy 10/2014 at [facility]---diverticulos is, nonspecific inflammation EGD 09/2014 at [facility] --HH, mild reflux Colonoscopy 06/2019-1 tubular adenoma re moved, diverticulosis EGD 06/2019 small HH, gastritis, neg Hpy carmen, normal duodenal biopsies IBS with constipation/diarrhea vertigo Surgical History Surgery Date(Month/Year) appendectomy tonsillectomy D&C SBO - Surgery with Dr. Roger at [facility] 11/2013
--- OUTSIDE RECORDS SUMMARY | 2024-11-01 13:11 | XMS_ITS | Clinical Summary ---
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
--- OUTSIDE RECORDS SUMMARY | 2024-11-01 13:11 | XMS_ITS ---
Author Organization [facility] Address [address] [place] [address] Care Team Providers Care Wallpaper Embosser Helper Name Role Phone Nick Gomez Primary Care Provider Unavailab Anatoliy Montgomery Unavailable [phone] REASON FOR VISIT retching Encounters Encounter Location Date Provider Diagnosis [facility] [address] [place] [address] 03/06/2024 Anatoliy Escobar PLAN OF TREATMENT No Information
--- OUTSIDE RECORDS SUMMARY | 2024-11-01 13:12 | XMS_ITS ---
Author Organization [facility] Address [address] [place] [address] Care Team Providers Care Digester Operator Helper Name Role Phone Huma Garcia Primary Care Provider Kwadwo Guillen Unavailable [phone] REASON FOR VISIT same day rs 10/10/24 Encounters Encounter Location Date Provider Diagnosis [address] [address] 10/10/2024 Kwadwo Hendricks Plan Of Treatment Next Appt Details Provider Name:Kwadwo Hendricks , 12/27/2024 12:00:00 PM, [address] [place] [address], [phone], Progress Notes * Bella HENLEY GDOB:1940 (83 yo F)Acc No.[id number]:10/10/2024 Patient:?Bella HENLEY :1940???Age:83 Y???Sex:Female Address:[address] [place] [address], * true * Date:? Generated for Printi ng/Elizabeth/eTransmitting on:?11/01/2024 01:11 PM EST
--- OUTSIDE RECORDS SUMMARY | 2024-11-01 13:12 | XMS_ITS ---
Author Organization [facility] Address [address] [place] [address] Care Team Providers Care Central Office Trouble Shooter Name Role Phone JoseLisaregina Primary Care Provider UnavailKwadwo Redman Unavailable [phone] Julieth Rosa Unavailable [phone] Allergies Allergen (clinical drug ingredient) Drug/Non Drug [...] Not-Taki ng Mucinex PRN Active CO-Q 10 [place]-3 Fish Oil Not-Taking Aspir-81 Not-Taking CeleXA Not-Taking [...] Problem Acquired hammer toe of left foot (6011817201769758 ) Other hammer toe(s) (acquired), left foot (M20.42) Active confirmed Problem Localized, primary osteoarthritis of the ankle and/or foot (620400720) Arthritis of joint of lesser toe, left (M19.072) Active confirmed Vital Signs Height 5 ft 6 in in 10/11/2024 Weight 163 lbs 10/11/2024 BMI 26.31 kg/m2 10/11/2024 Blood pressure systolic 127 mm Hg 10/11/19 25 Blood pressure diastolic 74 mm Hg 025 Encounters Encounter Location Date Provider Diagnosis [facility] [address] [place] [address] 10/11/2024 Julieth Rosa Ischemic ulcer of le [...] Name:Kwadwo Hendricks , 12/27/2024 12:00:00 PM, [address] [place] [address], [phone], Procedure Notes * Category Sub-Category Detail Notes [...] of the wound post debridement is stable ([address]), The patient was instructed on importance of [...] * EUGENE Bella GDOB:1940 (83 yo F)Acc No.[id number]:10/11/2024 Progress Note Patient:?Bella HENLEY Provider:?Julieth Rosa DPM :1940???Age:83 Y???Sex:Female D ate:10/11/2024 Address:[address] [place], [place] [phone] Pcp:Huma Garcia Subjective: * Chief Complaints: * [...] * Hospitalization/Major Diagno stic Procedure:?Patient admitted to [facility] x 5 days; diverticulitis 12/2014[facility]- stomach pains - Gerd /IBS due to anxiety 01/2021,02/2021[facility] ER- Chest pain and Dizziness 06/2023[facility] [...] no. ?Marital status: single, . 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 * Medications:?TakingVitamin D 3 Mirtazapine Myrbetriq [...] , Notes to Pharmacist: PRNNot-Taking/PRNTrileptal CO-Q 10 [place]-3 Fish Oil Aspir-81 CeleXA Valsartan 40 MG [...] with the patientNot-Taking/PRN Trileptal Not-Taking/PRN CO-Q 10 [place]-3 Fish Oil Not-Taking/PRN Aspir-81 Not-Taking/PRN CeleXA Not-Taking/PRN [...] for office visit today.?ORIENTED:?person, place, and time.?FOOT EXAM:?Lower Extremity Neurological Exam performed:?Yes ?Visual exam of foot performed:?Yes ?Date?10/11/2024 ?Footwear Evaluation?Footwear Evaluation performed:?Yes?Neurological: ?SENSORY:?Neurological exam reveals intact sensorium, pain sensation [...] of the wound post debridement is stable (44163), The patient was instructed on importance of [...] till condition is completely healed.? * Procedure Codes:?61239 ACTIV E WOUND CARE/20 CM OR <, [...] the past year??No * Follow Up:?as scheduled,To raffi Hendricks * Images: * Sign off status: Completed true * Provider:?Julieth Rosa DPM Date:?03/2025 Generated for José Luis bryan/Elizabeth/eTransmitting on:?11/01/2024 01:11 PM EST History and Physical Notes * HPI (History of Present Illness) Category Sub-Category Detail Notes Category Not es Toe pain Nature: tenderness Location: Left foot, 3rd toe Duration: , several weeks Course: worse Aggravated by: any pressure, shoes Treatments: rest/alter normal da atb activity, change in shoes Skin problems Location: [...]
--- OUTSIDE RECORDS SUMMARY | 2024-11-01 13:12 | XMS_ITS ---
Author Organization [facility] Address [address] [place] [address] Care Team Providers Care Bow Maker Name Role Phone Nick Gomez Primary Care Provider Unavailab Anatoliy Montgomery Unavailable [phone] REASON FOR VISIT acid reflux Encounters Encounter Location Date Provider Diagnosis [facility] [address] [place] [address] 06/14/2024 Anatoliy Escobar PLAN OF TREATMENT No Information
--- OUTSIDE RECORDS SUMMARY | 2024-11-01 13:12 | XMS_ITS ---
Author Organization [facility] Address [address] [place] [address] Care Team Providers Care Computer Artist Name Role Phone Huma Garcia Primary Care Provider Kwadwo Guillen Unavailable [phone] Medications Medication SIG (Take, Route, Frequency, Duration) [...] CeleXA Not-Taking Mucinex PRN Active CO-Q 10 [place]-3 Fish Oil Not-Taking ALPRAZolam 20 mg 1x [...] Negative Encounters Encounter Location Date Provider Diagnosis [facility] [place] [address] [place] [phone] 10/10/2024 Kwadwo Hendricks Plan Of Treatment Next Appt Details Provider Name:Kwadwo Hendricks , 12/27/2024 12:00:00 PM, [address] [place], [address], Progress Notes * Bella HENLEY GDOB:1940 (84 yo F)Acc No.[id number]:10/10/2024 Progress Note Patient:?Bella HENLEY Provider:?Kwadwo Hendricks DPM :1940???Age:83 Y???Sex:Female D ate:10/10/2024 Address:[address] [place], [place] [phone] Pcp:Huma Garcia Subjective: * Chief Complaints: * [...] Notes to Pharmacist: PRN, Not-Taking/PRN CO-Q 10 [place]-3 Fish Oil , Not-Taking/PRN Aspir- 81 , [...] DPM Date:?2024 Generated for José Luis bryan/Elizabeth/Marquise on:?11/01/2024 01:12 PM EST
--- OUTSIDE RECORDS SUMMARY | 2024-11-01 13:12 | XMS_ITS ---
Author Organization [facility] Address [address] [place] [address] Care Team Providers Care Academic Support Specialist Name Role Phone Nick Gomez Primary Care Provider Unavailab Anatoliy Montgomery Unavailable [phone] REASON FOR VISIT constipation Encounters Encounter Location Date Provider Diagnosis [facility] [address] [place] [address] 03/06/2024 Anatoliy Escobar PLAN OF TREATMENT No Information
== END 2024-11-01 12:02 | disposition home or self-care (01) ==
PROVIDERS: PCP Internal Medicine; Visit Provider Internal Medicine
DX: I10 Essential (primary) hypertension (principal); Z95.2 Presence of prosthetic heart valve; J44.9 Chronic obstructive pulmonary disease, unspecified; F41.1 Generalized anxiety disorder

== ENCOUNTER → 2024-11-01 11:12 | Outpatient (BNVA) | payer MEDICARE, OTHER, SELFPAY | PROVIDERS: PCP Internal Medicine; Visit Provider Internal Medicine | DX: I10 Essential (primary) hypertension (principal); J44.9 Chronic obstructive pulmonary disease, unspecified; F41.1 Generalized anxiety disorder; Z95.2 Presence of prosthetic heart valve | CPT/HCPCS: 99212 ==

== ENCOUNTER 2024-11-20 15:17 | Outpatient (REF) | payer MEDICARE, OTHER, SELFPAY ==
[2024-11-20 15:34] LABS: Appearance Urine Clear; Color Urine Yellow; Glucose Urine UA Negative (Negative); Leukocyte Esterase Urine Trace (Negative); Nitrite Urine Negative (Negative); Specific Gravity - Urine 1.015 (1.005-1.025); UMIC TRIGGER UACC YES; Urine Blood Negative (Negative); Urine Ketones Negative (Negative); Urine Protein Negative (Neg-Trace)
[2024-11-20 15:42] LABS: Bacteria Urine None Seen (None Seen); Hyaline Casts Urine 0-2 /LPF (0-2); RBC Urine 0-2 /HPF (0-2); Squamous Epithelial Cell Urine 0-2 /HPF (0-2); WBC Urine 0-5 /HPF (0-5)
== END 2024-11-20 15:18 | disposition home or self-care (01) ==
LOC: HO.HVNA 15:17
PROVIDERS: Visit Provider Internal Medicine
DX: N39.0 Urinary tract infection, site not specified (principal)
CPT/HCPCS: 81001

== ENCOUNTER 2024-11-23 13:08 | Emergency (ER) | payer MEDICARE, OTHER, SELFPAY ==
--- NOTE | ~2024-11-23 | XR_ITS ---
CLINICAL HISTORY: fall, pain 4 views right wrist with navicular view Comparison: None Findings: There is an impacted comminuted fracture of the distal radius metaphysis with volar cortical fragment displaced 4.5 mm The radiocarpal and intercarpal joints are in satisfactory alignment. There is moderate degenerative narrowing of the triscaphe joint. Distal ulna is normal. Navicular bone is normal. Radial ulnar joint distance is normal. No radiopaque foreign body Impression: Impacted mildly displaced comminuted fracture of the distal radius metaphysis This document has been electronically signed by: Nick Dutta MD on 11/23/2024 13:40:31
[2024-11-23 13:10] VITALS: BP 140/65; PULSE 90; RESP 18; TEMP 37; O2SAT 94; BMI 27.5
--- NOTE | 2024-11-23 13:10 | ED_ITS ---
HPI - Extremity Problem General Chief complaint: Extremity Injury, Upper Stated complaint: fractured wrist ? Time Seen by Provider: 11/23/24 13:38 Source: patient and family (patient's son) Mode of arrival: ambulatory Limitations: no limitations History of Present Illness ED Provider: Xuan Soliman PA-C HPI Narrative: Patient is an 84 year old assigned female at with a history of anxiety, HTN, aortic stenosis status post TAVR, COPD, prior CVA, arthritis, constipation, and GERD presenting to the emergency department today with right wrist pain after a fall. Patient states that yesterday she tripped and fell over a blanket / comforter and used her right wrist to catch herself. Patient states that she did not hit her head or have any loss of consciousness with the incident. Placido christianson denies any dizziness, lightheadedness, abdominal pain, nausea, vomiting, fever, chills, blurry vision, double vision, loss of vision, chest pain, difficulty breathing, shortness of breath, back pain, night sweats, pain with urination, increased urinary frequency, increased urinary urgency, blood in her urine or stool, syncope or a near syncopal episode, bowel incontinence, bladder incontinence, or any other complaints at this time. Onset (ago): day(s) (1) Location: right and upper extremity Relieving factors: nothing Exacerbating factors: nothing Associated symptoms: denies other symptoms Related Data Home Medications ?Medication ?Instructions ?Recorded ?Confirmed folic acid 400 mcg tablet 0.4 mg PO DAILY 11/23/23 11/01/24 alprazolam 0.25 mg tablet 0.25 mg PO BID 03/28/24 11/01/24 fluticasone propionate 50 spray intranasal 08/23/24 11/01/24 mcg/actuation nasal spray,suspension mirtazapine 7.5 mg tablet 10.5 mg PO BEDTIME 11/01/24 11/01/24 Previous Rx's ?Medication ?Instructions ?Recorded acetaminophen 325 mg capsule 325 mg PO Q4H PRN pain #30 caps 12/17/23 (Tylenol) losartan 25 mg tablet 25 mg PO DAILY 90 days #90 tabs 08/19/24 albuterol sulfate 90 mcg/actuation 2 puff inhalation Q4-6H PRN 09/06/24 aerosol inhaler shortness of breath or wheezing #1 ea fluticasone 250 mcg-salmeterol 50 1 inh inhalation BID #60 ea 09/12/24 mcg/dose blistr powdr for inhalation (Advair Diskus) pantoprazole 40 mg tablet,delayed 40 mg PO DAILY #90 tabs 09/23/24 release (Protonix) clopidogrel 75 mg tablet 75 mg PO QAM #90 tabs 09/27/24 cholecalciferol (vitamin D3) 50 50 mcg PO DAILY #90 tabs 11/01/24 mcg (2,000 unit) tablet (Vitamin D3) mirabegron 25 mg tablet,extended 25 mg PO DAILY 90 days #90 tabs 11/01/24 release 24 hr (Myrbetriq) ondansetron 4 mg disintegrating 4 mg PO Q6H PRN nausea and 11/18/24 tablet vomiting #14 tabs Allergies Allergy/AdvReac Type Severity Reaction Status Date / Time buspirone Allergy Intermediate Rash Verified 11/23/24 13:13 Sulfa (Sulfonamide Allergy Intermediate RASH Verified 11/23/24 13:13 Antibiotics) cefuroxime Allergy Unknown Unknown Verified 11/23/24 13:13 garlic [GARLIC] Allergy Unknown PER H&P Verified 11/23/24 13:13 metronidazole [From FLAGYL] Allergy Unknown OCULAR Verified 11/23/24 13:13 MIGRAINES penicillamine Allergy Unknown Unknown Verified 11/23/24 13:13 ciprofloxacin AdvReac Intermediate neuropathic Verified 11/23/24 13:13 pain lisinopril AdvReac Intermediate Cough Verified 11/23/24 13:13 nitrofurantoin AdvReac Mild GI side Verified 11/23/24 13:13 effects cefuroxime Allergy Intermediate wheezy Uncoded 11/23/24 13:13 cough/itch flagyl Allergy Unknown Unknown Uncoded 11/23/24 13:13 From KEFLEX Allergy Unknown RASH Uncoded 11/23/24 13:13 Metoprolol Tartrate Allergy Unknown Unknown Uncoded 11/23/24 13:13 Sulfacet-R Allergy Unknown Unknown Uncoded 11/23/24 13:13 Review of Systems Constitutional: Constitutional: Reports no additional constitutional complaints, Denies chills, Denies fever(s) and Denies night sweats Eyes: Eyes: Reports no additional eye complaints, Denies blurry vision, Denies change in vision, Denies diplopia, Denies eye discharge, Denies loss of vision and Denies eye pain ENT: Denies dizziness Cardiovascular: Cardiovascular: Reports no additional cardiovascular complaints, Denies chest pain, Denies lightheadedness, Denies Loss of Consciousness and Denies dyspnea Respiratory: Respiratory: Reports no additional respiratory complaints and Denies dyspnea Gastrointestinal: Gastrointestinal: Reports no additional gastrointestinal complaints, Denies abdominal pain, Denies melena, Denies hematochezia, Denies change in bowel habits and Denies change in stool character Genitourinary: Genitourinary: Denies hematuria, Denies urinary frequency, Denies dysuria, Denies urinary incontinence, Denies urinary hesitancy and Denies urinary urgency Musculoskeletal: Musculoskeletal: Reports no additional musculoskeletal complaints, Denies numbness and Denies tingling Comments: right wrist pain Neurologic: Denies dizziness, Denies loss of vision, Denies numbness and Denies tingling Psychiatric: Psychiatric: Reports no additional psychiatric complaints Endocrine: Endocrine: Reports no additional endocrine complaints Hematologic/Lymphatic: Hematologic/Lymphatic: Reports no additional hematologic/lymphatic complaints Allergic/Immunologic: Allergic/Immunologic: Reports no additional allergic/immunologic complaints [facility] Past Medical History Attestation statement: The following information was validated with the patient. (all information validated with the patient's son) Source: old records reviewed, obtained from family (patient's son provided additional history and confirmed the history provided by the patient.) and nursing notes reviewed Medical History Pulmonary nodule Chest pain URI (upper respiratory infection) HTN (hypertension) Cough Heart palpitations Constipation LLQ abdominal pain Anxiety Breast cancer screening Breast pain, left Elevated vitamin B12 level Neck muscle spasm Strain of neck muscle Low back pain Pubic ramus fracture Sore throat Skin tear of upper arm without complication Head injury, acute, without loss of consciousness Fall Dizziness Medication noncompliance due to cognitive impairment RLQ abdominal pain Sinusitis Flu syndrome Precordial chest pain Atypical chest pain Cold intolerance Former smoker Abnormal lung sounds Fever Bilateral calf pain Nausea Left lower quadrant abdominal pain Dysuria Fatigue Lower extremity weakness Aortic stenosis Obstipation Dark stools Lower abdominal pain Gastroenteritis Neck pain on right side Back pain Rhinitis Elevated BP without diagnosis of hypertension Non-rheumatic aortic stenosis Diverticulitis GERD (gastroesophageal reflux disease) Cat scratch Cat bite Epigastric discomfort Diarrhea Nausea Viral syndrome GERD (gastroesophageal reflux disease) Neuropathy Arthritis GERD (gastroesophageal reflux disease) HTN (hypertension) Irritable bowel Heart murmur Surgical History S/P TAVR (transcatheter aortic valve replacement) Hx of esophagogastroduodenoscopy Hx of colonoscopy History of tonsillectomy History of appendectomy Family History Family History Father No problems noted. Mother No problems noted. Social History Social History Household Members: Children Housing: House Are you a primary home care manager to a significant other at home: No Do you presently have visiting nurse or other home services: No Alcohol intake: former Patient Tobacco Use Status: Former Tobacco user Tobacco use type: Cigarette e-Cigarette/Vaping Use: Never Used Second Hand Smoke Exposure: Yes Advance Directives: Yes Advance Directives on File: Yes Advance Directives Date on File: 03/28/23 service: No Current occupational status: retired Cognitive needs: No Hearing needs: No Vision needs: Yes (glasses) Physical Exam Vital Signs: Vital Signs: Last Vital Signs Temp 98.6 F 11/23/24 13:10 Pulse 90 11/23/24 13:10 Resp 18 11/23/24 13:10 BP 140/65 H 11/23/24 13:10 Pulse Ox 94 11/23/24 13:10 O2 Del Method Room Air 11/23/24 13:10 BMI result Body Mass Index 27.5 Const: General: cooperative, no acute distress, alert and awake Nutritional Appearance: well nourished Orientation/consciousness: patient oriented x3 Limitations: no limitations HEENT: Head: Yes normal to inspection and Yes atraumatic Ears: hearing grossly normal bilaterally and external ears normal General nose exam: Normal external nose present, no nasal discharge noted and no epistaxis Face and sinus: Yes normal facial exam, No abrasion and No laceration Mouth: Normal oral and palatal mucosa present, no drooling and no muffled voice Eyes: General: appearance normal, both eyes and all related structures Periorbital: periorbital findings normal Eyelids: Yes eyelids normal Conjunctivae: conjunctivae normal Pupils: Equal, round and reactive pupils present EOM: EOMs intact bilaterally Neck: Neck: Yes normal visual inspection, Yes full ROM and Yes no lymphadenopathy Chest: Chest palpation & inspection: normal inspection of the chest Resp: Effort & Inspection: normal respiratory effort and able to speak in complete sentences GI: Inspection: Yes normal to inspection Neuro: General: patient oriented x3, moves all extremities and CN's II-XI intact bilaterally Cranial nerves: Yes Equal, round and reactive pupils present Cognition (Neuro): normal cognition Extrem: Other: bruising present to the dorsal right wrist pain with palpation of the right wrist pain with right wrist ROM General: Yes full ROM and Yes capillary refill normal Psych: Appearance: grossly normal Mental Status: mental status grossly normal Affect: normal affect Attitude: cooperative Thought process: Normal thought process present Thought content: Normal thought content present Insight: Good insight present (Psych) Course Course Course Narrative: This is an RME performed by Alicia Nation CNP: Additional HPI, ROS, PE not included below will be deferred to primary provider. patient is an 84-year-old female who presents emergency department for evaluation of right wrist pain swelling and ecchymosis. reports a mechanical trip and fall last night , fall onto the outstretched hand. Denies head strike or loss of consciousness. full range of motion to the digits, laceration of pain with palmar flexion of the wrist. plan: XR Medical Decision Making Medical Decision Making MDM Narrative: Patient is an 84 year old assigned female at with a history of anxiety, HTN, aortic stenosis status post TAVR, COPD, prior CVA, arthritis, constipation, and GERD presenting to the emergency department today with right wrist pain after a fall. Patient's physical exam was as noted in the physical exam portion of this note. Patient's right wrist x-ray showed an acute distal radius fracture. I explained my physical exam findings as well as all test results to the patient and the patient's son. I answered all questions asked by the patient and the patient's son. Patient's right wrist was placed in a sugar tong splint, without incident. Patient's PMS was intact prior to and after splint placement. Patient's right upper extremity was placed in a sling, without incident. I stressed the importance of the patient taking her medication as directed (either prescribed or as the over the counter packaging recommends). I stressed the importance of the patient following up with her primary care provider and the orthopedic team. I stressed the importance of the patient returning to the emergency department immediately if her symptoms were to worsen or if she were to develop any dizziness, shortness of breath, difficulty breathing, chest pain, blurry vision, loss of vision, nausea, vomiting, abdominal pain, fever, chills, back pain, or any other complaints. Patient verbalized agreement and understanding with this treatment plan and discharge. Differential Diagnosis Differential Diagnoses: The differential diagnosis associated with the presentation includes Right wrist fracture Radial fracture Contusion Admission/Observation Consideration of admission/observation: Escalation of care including admission/observation considered Patient would have been admitted to the hospital had her work up had any findings where hospital admission was appropriate and her clinical presentation warranted hospital admission. Independent Interpretation I performed an independent interpretation of an: Plain X-Ray Interpretation: My interpretation is in agreement with the radiologist's impression of this imaging study. CLINICAL HISTORY: fall, pain 4 views right wrist with navicular view Comparison: None Findings: There is an impacted comminuted fracture of the distal radius metaphysis with volar cortical fragment displaced 4.5 mm The radiocarpal and intercarpal joints are in satisfactory alignment. There is moderate degenerative narrowing of the triscaphe joint. Distal ulna is normal. Navicular bone is normal. Radial ulnar joint distance is normal. No radiopaque foreign body Impression: Impacted mildly displaced comminuted fracture of the distal radius metaphysis This document has been electronically signed by: Nick Dutta MD on 11/23/2024 13:40:31 Dictated By: Nick Dutta MD Signed By: Electronically signed by Nick Dutta MD 11/23/24 1341 Radiology Impression Discussion of test interpretation with radiology: I have reviewed the radiologist's reading. Independent Historian Clinical information obtained from an independent historian. History obtained from or confirmed by: Other (patient's son provided additional history and confirmed the history provided by the patient.) Discharge Plan Discharge Clinical Impression: Fracture of wrist Patient Disposition: Home, Self-Care Instructions: Wrist Fracture in Adults (ED) Additional Instructions: Do NOT get your splint wet. Do NOT remove your splint. If you have any change in sensation, movement, or color of your right fingers - you may loosen the outer JAVIER wraps. If you find yourself loosening the JAVIER wraps to the point of seeing the white splint material underneath - STOP and proceed to your closest Emergency Department, immediately. Follow up with your primary care provider and the orthopedic team. Return to the emergency department immediately if your symptoms worsen or if you develop any numbness, tingling, dizziness, shortness of breath, difficulty breathing, chest pain, blurry vision, loss of vision, nausea, vomiting, abdominal pain, fever, chills, back pain, or any other complaints. Please see the information below about our Patient Portal. If you are not yet enrolled in the [facility] Patient Portal, you will receive an enrollment email invitation following your visit to any [facility] setting. You may also self-enroll in the Patient Portal by visiting our website: [email or web address] The following information is required to access the Patient Portal: - Your [facility] Medical Record Number - Your personal home email address (must match what is in your electronic medical record, Registration staff can assist with this) - Name - Date of Capabilities of the Patient Portal: - Message some providers - View upcoming appointments - Access your health summary, medical history, and visit history - View current conditions and allergies - View procedure and lab results - View your medications, including guidelines, side effects, and precautions - Complete pre-appointment questionnaires requested by your provider - Ready summary reports of your office visits and procedures To access the Patient Portal Mobile As[employer], follow these directions: - Search [facility] in the Asya Store or [employer] Store - Download the Asya - Search for [facility] - Enter your login/password Prescriptions: No Action losartan 25 mg tablet 25 mg PO DAILY 90 Days Qty: 90 1RF albuterol sulfate 90 mcg/actuation HFA aerosol inhaler 2 puff inhalation Q4-6H PRN (Reason: shortness of breath or wheezing) Qty: 1 2RF pantoprazole [Protonix] 40 mg tablet,delayed release (DR/EC) 40 mg PO DAILY Qty: 90 1RF clopidogrel 75 mg tablet 75 mg PO QAM Qty: 90 0RF mirtazapine 7.5 mg tablet 10.5 mg PO BEDTIME ondansetron 4 mg tablet,disintegrating 4 mg PO Q6H PRN (Reason: nausea and vomiting) Qty: 14 0RF folic acid 400 mcg Tablet 0.4 mg PO DAILY acetaminophen [Tylenol] 325 mg capsule 325 mg PO Q4H PRN (Reason: pain) Qty: 30 0RF alprazolam 0.25 mg Tablet 0.25 mg PO BID fluticasone propionate 50 mcg/actuation spray,suspension intranasal fluticasone propion-salmeterol [Advair Diskus] 250-50 mcg/dose blister with device 1 inh inhalation BID Qty: 60 1RF mirabegron [Myrbetriq] 25 mg tablet extended release 24 hr 25 mg PO DAILY 90 Days Qty: 90 3RF cholecalciferol (vitamin D3) [Vitamin D3] 50 mcg (2,000 unit) tablet 50 mcg PO DAILY Qty: 90 3RF Referrals: [facility] [Provider Group] (Call to establish and follow up with the orthopedic team. ) Huma Garcia MD [Primary Care Provider] - Print Language: Romansh
--- NOTE | 2024-11-23 14:28 | PC.NURSE ---
pt a&ox3, +csm/pulses of RUE, pt states she has 3/10 pain, split applied by PA, sling applied, pt to discharge home with son
[2024-11-23 14:34] VITALS: BP 138/68; PULSE 88; RESP 16; TEMP 36.8; O2SAT 96
== END 2024-11-23 14:36 | disposition home or self-care (01) ==
PROVIDERS: Emergency Provider Emergency Medicine; PCP Internal Medicine
DX: S52.591A Other fractures of lower end of right radius, initial encounter for closed fracture (principal); X50.1XXA Overexertion from prolonged static or awkward postures, initial encounter; Y93.89 Activity, other specified; Y92.009 Unspecified place in unspecified non-institutional (private) residence as the place of occurrence of the external cause; Y99.9 Unspecified external cause status
CPT/HCPCS: 29125; 73110; 99283

== ENCOUNTER → 2024-11-23 13:12 | Outpatient (BNV) | payer MEDICARE, OTHER, SELFPAY | PROVIDERS: Emergency Provider Emergency Medicine; PCP Internal Medicine; Visit Provider Radiology Diagnostic Radiology | DX: M25.531 Pain in right wrist (principal) | CPT/HCPCS: 73110 ==

== ENCOUNTER 2024-11-28 11:24 | Outpatient (REF) | payer MEDICARE, OTHER, SELFPAY ==
--- NOTE | ~2024-11-28 | XR_ITS ---
EXAMINATION: XR WRIST 3 OR MORE VIEWS RIGHT HISTORY: M25.531 - Pain in right wrist COMPARISON: Comparison is made with the prior examination dated 11/23/2024. FINDINGS: Three views of the right wrist are submitted. The bones are osteopenic. Again seen is a transverse fracture of the distal radial metaphysis. The fracture line remains visible. 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 There is severe degenerative change involving the interphalangeal joint of the thumb. The soft tissues are unremarkable. XR/XR wrist RT min 3V IMPRESSION: Transverse fracture of the distal radial metaphysis without significant change. Electronically signed by: Anatoliy Elias MD 11/28/2024 01:05 PM EDT
== END 2024-11-28 11:25 | disposition home or self-care (01) ==
LOC: HO.HOSX 11:24
DX: M25.531 Pain in right wrist (principal); S52.501A Unspecified fracture of the lower end of right radius, initial encounter for closed fracture
CPT/HCPCS: 25600; 73110; 99202

== ENCOUNTER 2024-11-28 11:42 | Outpatient (AMB) | payer MEDICARE, OTHER, SELFPAY ==
--- NOTE | 2024-11-28 12:01 | A.OFFVIS_ITS ---
Intake Visit Reasons: FC - Right Distal Radius Fx 11/22/24 Intake Note: This is an 84 year old female that presents for a right distal radius fracture from 11/22/24, she is right hand dominant. She had x rays updated in the office today. She reports she tripped and fell and braced herself with her right hand. She reports minimal pain, she was taking tylenol as needed. Catheterization Laboratory Technician Required: No Filter Changing Technician: Filter Changing Technician offered & declined Accompanied by: Son Allergies buspirone Allergy (Intermediate, Verified 11/28/24 12:08) Rash Sulfa (Sulfonamide Antibiotics) Allergy (Intermediate, Verified 11/28/24 12:08) RASH cefuroxime Allergy (Unknown, Verified 11/28/24 12:08) Unknown garlic [GARLIC] Allergy (Unknown, Verified 11/28/24 12:08) PER H&P metronidazole [From FLAGYL] Allergy (Unknown, Verified 11/28/24 12:08) OCULAR MIGRAINES penicillamine Allergy (Unknown, Verified 11/28/24 12:08) Unknown ciprofloxacin Adverse Reaction (Intermediate, Verified 11/28/24 12:08) neuropathic pain lisinopril Adverse Reaction (Intermediate, Verified 11/28/24 12:08) Cough nitrofurantoin Adverse Reaction (Mild, Verified 11/28/24 12:08) GI side effects cefuroxime Allergy (Intermediate, Uncoded 11/28/24 12:08) wheezy cough/itch flagyl Allergy (Unknown, Uncoded 11/28/24 12:08) Unknown From KEFLEX Allergy (Unknown, Uncoded 11/28/24 12:08) RASH Metoprolol Tartrate Allergy (Unknown, Uncoded 11/28/24 12:08) Unknown Sulfacet-R Allergy (Unknown, Uncoded 11/28/24 12:08) Unknown Medication List - Last Reconciled 11/28/24 by Marilyn Madrigal, RN acetaminophen (Tylenol) 325 mg PO Q4H PRN albuterol sulfate 90 mcg/actuation 2 puffs inhalation Q4-6H PRN alprazolam 0.25 mg PO BID cholecalciferol (vitamin D3) (Vitamin D3) 50 mcg PO DAILY citalopram (Celexa) 20 mg PO DAILY clopidogrel 75 mg PO QAM fluticasone propion-salmeterol 250-50 mcg/dose (Advair Diskus) 1 inh inhalation BID fluticasone propionate 50 mcg/actuation sprays intranasal folic acid 0.4 mg PO DAILY losartan 25 mg PO DAILY 90 days mirabegron ER (Myrbetriq) 25 mg PO DAILY 90 days ondansetron 4 mg PO Q6H PRN pantoprazole (Protonix) 40 mg PO DAILY HPI HPI FC - Right Distal Radius Fx 11/22/24: Details: This is an 84 year old female that presents for a right distal radius fracture from 11/22/24, she is right hand dominant. She had x rays updated in the office today. She reports she tripped and fell and braced herself with her right hand. She reports minimal pain, she was taking tylenol as needed. FOR[facility]LY [facility] Medical History Pulmonary nodule Chest pain URI (upper respiratory infection) HTN (hypertension) Cough Heart palpitations Constipation LLQ abdominal pain Anxiety Breast cancer screening Breast pain, left Elevated vitamin B12 level Neck muscle spasm Strain of neck muscle Low back pain Pubic ramus fracture Sore throat Skin tear of upper arm without complication Head injury, acute, without loss of consciousness Fall Dizziness Medication noncompliance due to cognitive impairment RLQ abdominal pain Sinusitis Flu syndrome Precordial chest pain Atypical chest pain Cold intolerance Former smoker Abnormal lung sounds Fever Bilateral calf pain Nausea Left lower quadrant abdominal pain Dysuria Fatigue Lower extremity weakness Aortic stenosis Obstipation Dark stools Lower abdominal pain Gastroenteritis Neck pain on right side Back pain Rhinitis Elevated BP without diagnosis of hypertension Non-rheumatic aortic stenosis Diverticulitis GERD (gastroesophageal reflux disease) Cat scratch Cat bite Epigastric discomfort Diarrhea Nausea Viral syndrome GERD (gastroesophageal reflux disease) Neuropathy Arthritis GERD (gastroesophageal reflux disease) HTN (hypertension) Irritable bowel Heart murmur Surgical History S/P TAVR (transcatheter aortic valve replacement) Hx of esophagogastroduodenoscopy Hx of colonoscopy History of tonsillectomy History of appendectomy Family History Father No problems noted. Mother No problems noted. Social History Household Members: Children Housing: House Are you a primary rn intensive care unit to a significant other at home: No Do you presently have visiting nurse or other home services: No Alcohol intake: former Patient Tobacco Use Status: Former Tobacco user Tobacco use type: Cigarette e-Cigarette/Vaping Use: Never Used Second Hand Smoke Exposure: Yes Advance Directives Date on File: 03/28/23 service: No Current occupational status: retired Cognitive needs: No Hearing needs: No Vision needs: Yes (glasses) Review of Systems Const All systems reviewed & are unremarkable except as noted in HPI and below Physical Exam Extrem Other: Patient is alert, oriented, and in no acute distress. Neuro: Normal sensation of the tips of all digits of the right hand at this time Vascular: Cap refill brisk Pain: Mild tenderness to palpation noted about the distal radius of the right wrist No pain with range of motion of the hand ROM: Patient is able to make a closed fist and extend all digits of the right hand fully Skin: No lacerations or abrasions. General: No ecchymosis, erythema, or evidence of infection. Psych: Appears grossly normal Affect normal Attitude cooperative Office Procedures AMB Fracture Care Fracture Billing Code: Fracture Billing Code Casting/Splints 51741-Sfkhzhs Splint Application Procedure code (CPT) selection complete Results Reviewed Results Reviewed: X-rays obtained in the office today and independently reviewed by me, Sumit Pollock PA-C, demonstrate minimally displaced, comminuted fracture of the right distal radius. Assessment & Plan Assessment & Plan (1) Fracture of right distal radius: Code(s): S52.501A - Unspecified fracture of the lower end of right radius, initial encounter for closed fracture Category: Medical Plan 1. Minimally displaced fracture of right distal radius Date of injury 11/22/2024 Patient is educated about this condition Patient was educated about the typical treatment course At this time, patient was informed that her fracture can be treated nonoperatively, and she will not require surgery However, due to the patient's continued significant swelling, I feel it was best for the patient to be placed into a splint for a further week to allow for swelling to go down before being placed into a cast Patient and her son state understanding of this and are amenable to this plan Patient was educated on proper splint care and precautions Patient will follow-up in 1 week with repeat x-rays for reassessment, anticipate cast placement at that time, sooner with any acute concerns Orders: Orders XR wrist RT min 3V Today M25.531 - Pain in right wrist Coding Level of Care Code New Pt Level 3 (41836) Diagnoses Fracture of right distal radius S52.501A CPT Codes Fracture Care - Fracture Billing Code: Fracture Billing Code ([id number]) Splint - CPT: 29971-Suzhxmi Splint Application ([id number])
== END 2024-11-28 12:53 | disposition home or self-care (01) ==
LOC: HO.HOS 11:43
PROVIDERS: PCP Internal Medicine
DX: S52.501A Unspecified fracture of the lower end of right radius, initial encounter for closed fracture (principal); W01.0XXA Fall on same level from slipping, tripping and stumbling without subsequent striking against object, initial encounter
CPT/HCPCS: 25600; 99203

== ENCOUNTER → 2024-11-28 11:44 | Outpatient (BNV) | payer MEDICARE, OTHER, SELFPAY | PROVIDERS: Visit Provider Radiology Diagnostic Radiology | DX: S52.591D Other fractures of lower end of right radius, subsequent encounter for closed fracture with routine healing (principal) | CPT/HCPCS: 73110 ==

== ENCOUNTER 2024-12-02 08:57 | Outpatient (REF) | payer MEDICARE, OTHER, SELFPAY ==
--- NOTE | ~2024-12-02 | XR_ITS ---
EXAMINATION: XR WRIST 3 OR MORE VIEWS RIGHT HISTORY: M25.531 - Pain in right wrist COMPARISON: Comparison is made with the prior examination dated 11/28/2024. FINDINGS: Three views of the right wrist are submitted. The bones are osteopenic. Again seen is a transverse fracture of the distal radial metaphysis. There is some sclerosis about the fracture margins. The fracture line is less well visualized. 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 The soft tissues are unremarkable. XR/XR wrist RT min 3V IMPRESSION: Osteopenia. Healing transverse fracture of the distal radial metaphysis. Electronically signed by: Anatoliy Elias MD 12/03/2024 08:21 AM EDT
--- OUTSIDE RECORDS SUMMARY | 2024-12-03 09:38 | XMS_ITS | Patient Health Record ---
[facility] Address [address] [place] [address] Care Team Providers Care Optical Advisor Name Role Phone Huma Garcia Primary Care Provider Kwadwo Guillen Unavailable [phone] Julieth Rosa Unavailable [phone] Allergies Allergen (clinical drug ingredient) Drug/Non Drug [...] days Active Mucinex PRN Active CO-Q 10 [place]-3 Fish Oil Not-Taking Aspir-81 Not-Taking CeleXA Not-Taking [...] Problem Acquired hammer toe of left foot (1000577161424340 ) Other hammer toe(s) (acquired), left foot (M20.42) Active confirmed Problem Atherosclerosis of [place] arteries of the extremities (571696765106978) Atherosclerosis of [place] artery of both lower extremities, with unspecified presence of clinical manifestation (I70.203) Active confirmed Q7(A), Q8(2B), Q9(1B,2C) Problem Localized, primary osteoarthritis of the ankle and/or foot (649303278) Arthritis of joint of lesser toe, left [...] Ordered Date Performed Result Body Sit e 71109-IQAREQF NAIL, 6 OR MORE 04/16/2024 N/A 74992-VLUZ SKIN LESIONS, OVER 4 04/16/2024 N/A 78409-GDPLMPG NAIL, 6 OR MORE 09/25/2024 N/A 17988-GZRT SKIN LESIONS, OVER 4 09/25/2024 N/A Encounters Encounter Location Date Provider Diagnosis [address] [address] 04/16/2024 Kwadwo Hendricks Skin ulcer of toe of left foot, limited to breakdown of skin L97.521 ; Tinea unguium B35.1 ; Atherosclerosis of [place] artery of both lower extremities, with unspecified presence of clinical manifestation I70.203 ; Pain in right toe(s) M79.674 and Pain in left toe(s) M79.675 [facility] [address] [address] 09/25/2024 Kwadwo Hendricks Atherosclerosis of n ative artery of both lower extremities, with unspecified presence of clinical manifestation I70.203 ; Tinea unguium B35.1 ; Pain in right toe(s) M79.674 and Pain in left toe(s) M79.[address] [address] 10/11/2024 Julieth Perica Ischemic ulcer of le ft foot, limited to breakdown of skin L97.521 ; Other hammer toe(s) (acquired), left foot M20.42 ; Pain in left toe(s) M79.675 ; Arthritis of joint of lesser toe, left M19.072 and Subluxation of metatarsophalangeal joint of toe, initial encounter S93.149A [address] [address] 02/13/2024 Kwadwo Hendricks [address] [address] 04/16/2024 Kwadwo Hendricks [address] [address] 10/07/2024 Kwadwo Hendricks [address] [address] 10/09/2024 Kwadwo Hendricks [address] [address] 10/10/2024 Kwadwo Hendricks Assessments Encounter Date Diagnosis (ICD Code) Assessment Notes Treatment Notes Treatment Clinical Notes Section Notes 04/16/2024 Tinea unguium (ICD-1 0 - B35.1) 04/16/2024 Skin ulcer of toe of left foot, limited to breakdown of skin (ICD-10 - L97.521) 09/25/2024 Atherosclerosis of [place] artery of both lower extremities, with unspecified presence of clinical manifestation (ICD-10 - I70.203) Q7(A), Q8(2B), Q9(1B,2C) 10/11/2024 Other hammer toe(s) (acquired), left foot (ICD-10 - M20.42) 10/11/2024 Ischemic ulcer of le ft foot, limited to breakdown of skin (ICD-10 - L97.521) 10/11/2024 Pain in left toe(s) (ICD-10 - M79.675) 09/25/2024 Tinea unguium (ICD-1 0 - B35.1) 04/16/2024 Atherosclerosis of [place] artery of both lower extremities, with unspecified presence of clinical manifestation (ICD-10 - I70.203) 04/16/2024 Pain in right toe(s) (ICD-10 - M79.674) 09/25/2024 Pain in right toe(s) (ICD-10 - M79.674) 10/11/2024 Arthritis of joint o f lesser toe, left (ICD-10 - M19.072) 09/25/2024 Pain in left toe(s) (ICD-10 - M79.675) 10/11/2024 Subluxation of metatarsophalangeal joint of toe, initial encounter (ICD-10 - S93.149A) 04/16/2024 Pain in left toe(s) (ICD-10 - M79.675) 04/16/2024 Other Plan Of Treatment Pending Test Test Name Order Date *Uric Acid, Serum 11/27/2020 28946-IOTUFFD NAIL, 6 OR MORE 03/23/2021 44058-GYZKGXT NAIL, 6 OR MORE 11/23/2021 85378-BBFXBUZ NAIL, 6 OR MORE 09/08/2020 32257-JRNZSOO NAIL, 6 OR MORE 09/20/2022 77368-QZOVBFN NAIL, 6 OR MORE 01/06/2023 35419-PUBOSGW NAIL, 6 OR MORE 12/02/2011 52435-VVREPDL NAIL, 6 OR MORE 04/06/2012 07379-XQAOCNN NAIL, 6 OR MORE 07/10/2012 34057-KUKHDIO NAIL, 6 OR MORE 10/10/2014 17175-NIUZYZP NAIL, 6 OR MORE 03/24/2015 66867-PCSVBUU NAIL, 6 OR MORE 07/19/2016 69289-KGBJXNI NAIL, 6 OR MORE 01/10/2017 12401-MOCPBUU NAIL, 6 OR MORE 08/25/2017 08194-GXMHOXY NAIL, 6 OR MORE 11/24/2017 74042-IMIDVVN NAIL, 6 OR MORE 02/02/2018 97497-VBGJKLA NAIL, 6 OR MORE 08/07/2018 60766-PWTVBEW NAIL, 6 OR MORE 04/16/2019 86146-JTRKCOI NAIL, 6 OR MORE 03/20/2020 30000-XSHHDSE NAIL, 6 OR MORE 06/12/2020 10982-MBTOTNA NAIL, 6 OR MORE 06/13/2023 70368-BEDOLQZ NAIL, 6 OR MORE 11/10/2023 03841-QYGJZJL NAIL, 6 OR MORE 04/16/2024 33350-RUNSFCK NAIL, 6 OR MORE 09/25/2024 27066-Koygihzs Plate 06/13/2023 40322-Xqdgdpcb Plate 06/12/2020 12777-Pcuhyayy Plate 03/20/2020 27261-Pohlyzai Plate 04/16/2019 43057-Pvlouzsy Plate 09/20/2022 25950-Plignsuy Plate 09/08/2020 52600-Jvsmbdck Plate 11/23/2021 55536-Ovtcezcd Plate 03/23/2021 23103-Ygdrmbcy Plate Each Additional 60396-Sueexlsx Plate Each Additional 52595- Debride <25 sq cm 12/31/2021 82117- Debride <25 sq cm 11/25/2022 60276- Debride <25 sq cm 03/24/2015 87108- Debride <25 sq cm 11/10/2023 03300- Debride <25 sq cm 02/10/2023 51769-AYKS SKIN LESIONS, OVER 4 04/16/20 24 67617-WEKC SKIN LESIONS, OVER 4 09/25/19 25 83931-TKOK SKIN LESIONS, OVER 4 06/13/20 23 57424-VEAY SKIN LESIONS, OVER 4 11/10/19 24 64919-JATK SKIN LESIONS, OVER 4 01/07/20 23 26143-BHJJ SKIN LESIONS, OVER 4 09/20/19 23 95359-SYRI SKIN LESIONS, 2 TO 4 11/24/19 22 03191, Q8046-GETTU/INJECT, JOINT/BURSA 0 09/08/2020 68397 - Tenotomy, open flexor 12/01/2017 Next Appt Details Provider Name:Kwadwo Hendricks , 12/27/2024 12:00:00 PM, [address] [facility], [place], [address], Insurance Providers Payer Name Payer Address Payer Phone Subscriber Number Group Number Insured Name Patient Relationship to Insured Coverage Start Date Coverage End Date Medicare National Govt Sv[employer] [address] [place] [place] [address] [id number] KaleJessica gaspare Self - patient is the insured [employer] ([employer]) [address] [place] [address] [id number] Jessica Henleye Self - patient is the insured Medical (General) History Medical History History ICD Code back, hip, knee pain transfusions reflux measles chicken pox Anxiety disorder Peripheral neuropathy Fractured Pelvis, Left - 06/2023 Surgical History Surgery Date(Month/Year) tonsillectomy appendectomy intestinal blockage 11/2013 Hospitalization History Reason Date([facility] [facility] and Dizziness 06/2023 [facility] stomach [place] - Gerd /IBS due to anxiety 01/2021,02/2021 Patient admitted to [facility] x 5 days; diverticulitis 12/2014
--- OUTSIDE RECORDS SUMMARY | 2024-12-03 09:39 | XMS_ITS ---
Author Organization [facility] Address [address] [place] [address] Care Team Providers Care Field Merchandiser Name Role Phone JoseLisaregina Primary Care Provider UnavailKwadwo Redman Unavailable [phone] Julieth Rosa Unavailable [phone] Allergies Allergen (clinical drug ingredient) Drug/Non Drug [...] Not-Taki ng Mucinex PRN Active CO-Q 10 [place]-3 Fish Oil Not-Taking Aspir-81 Not-Taking CeleXA Not-Taking [...] Problem Acquired hammer toe of left foot (9211241710162287 ) Other hammer toe(s) (acquired), left foot (M20.42) Active confirmed Problem Localized, primary osteoarthritis of the ankle and/or foot (027419643) Arthritis of joint of lesser toe, left (M19.072) Active confirmed Vital Signs Height 5 ft 6 in in 10/11/2024 Weight 163 lbs 10/11/2024 BMI 26.31 kg/m2 10/11/2024 Blood pressure systolic 127 mm Hg 10/11/19 25 Blood pressure diastolic 74 mm Hg 025 Encounters Encounter Location Date Provider Diagnosis [facility] [address] [place] [address] 10/11/2024 Julieth Rosa Ischemic ulcer of le [...] Provider Name:Kwadwo Hendricks , 12/27/2024 12:00:00 PM, [address] [place] [address], [address], Procedure Notes * Category Sub-Category Detail Notes [...] of the wound post debridement is stable (26947), The patient was instructed on importance of [...] * EUGENE Bella GDOB:1940 (83 yo F)Acc No.[id number]:10/11/2024 Progress Note Patient:?Bella HENLEY Provider:?Julieth Rosa DPM :1940???Age:83 Y???Sex:Female D ate:10/11/2024 Address:[address] [place], [place] [address] Pcp:Huma Garcia Subjective: * Chief Complaints: * [...] [facility] x 5 days; diverticulitis 12[place] - Gerd /IBS due to anxiety 01/2021,02/2021[facility] [facility] and Dizziness 06/2023[facility] [...] no. ?Marital status: single, . 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 * Medications:?TakingVitamin D 3 Mirtazapine Myrbetriq [...] , Notes to Pharmacist: PRNNot-Taking/PRNTrileptal CO-Q 10 [place]-3 Fish Oil Aspir-81 CeleXA Valsartan 40 MG [...] with the patientNot-Taking/PRN Trileptal Not-Taking/PRN CO-Q 10 [place]-3 Fish Oil Not-Taking/PRN Aspir-81 Not-Taking/PRN CeleXA Not-Taking/PRN [...] of the wound post debridement is stable (70326), The patient was instructed on importance of [...] till condition is completely healed.? * Procedure Codes:?03033 ACTIV E WOUND CARE/20 CM OR <, [...] DPM Date:?03/2025 Generated for José Luis bryan/Elizabeth/eTransmitting on:?12/03/2024 09:38 AM EDT History and Physical Notes * HPI [...]
--- OUTSIDE RECORDS SUMMARY | 2024-12-03 09:39 | XMS_ITS | Clinical Summary ---
Author Organization [facility] Address [address] [place] [address] Care Team Providers Care Window Shade Estimator Name Role Phone Unavailable Primary Care Provider [...] - 2023-2 5 season) 2024 Influenza Vaccine (Season Ended) 2025 HIB Vaccines Aged Out No longer eligi [...] Documents on File Type Date Recorded Patient Announcer Expl anation Health Care Decision (hx) 09/07/2023 HE ALTH CARE PROXY Health Care Decision (hx) 03/03/2023 HE ALTH CARE PROXY
--- OUTSIDE RECORDS SUMMARY | 2024-12-03 09:39 | XMS_ITS ---
Author Organization [facility] Address [address] [place] [address] Care Team Providers Care Senior Technical Manager Name Role Phone Nick Gomez Primary Care Provider Unavailab Anatoliy Montgomery [phone] REASON FOR VISIT acid reflux Encounters Encounter Location Date Provider Diagnosis [facility] [address] [place] [address] 06/14/2024 Anatoliy Escobar Plan Of Treatment No Information Progress Notes * SELINA KNIGHTOB:1940 ( 83 yo F)Acc No.[id number]:06/14/2024 Patient:?VIKAS KNIGHT :1940???Age:83 Y???Sex:Female Address:[address] [place] [address] * true * Date:? Generated for Cindai irvin/Elizabeth/eTransmitting on:?12/03/2024 09:39 AM EDT
--- OUTSIDE RECORDS SUMMARY | 2024-12-03 09:39 | XMS_ITS ---
Author Organization [facility] Address [address] [place] [address] Care Team Providers Care Oracle Programmer Name Role Phone Nick Gomez Primary Care Provider Unavailab Anatoliy Montgomery [phone] REASON FOR VISIT retching Encounters Encounter Location Date Provider Diagnosis [facility] [address] [place] [address] 03/06/2024 Anatoliy Escobar Plan Of Treatment No Information Progress Notes * SELINA KNIGHTOB:1940 ( 84 yo F)Acc No.[id number]:03/06/2024 Progress Notes Patient:?VIKAS KNIGHT Provider:?Anatoliy Escobar MD :1940???Age:83 Y???Sex:Female D ate:03/06/2024 Address:[address] [place], [place] [id number] Pcp:Nick Gomez Subjective: * Chief Complaints: * [...] Date:? 024 Generated for José Luis bryan/Elizabeth/eTransmitting on:?12/03/2024 09:38 AM EDT
--- OUTSIDE RECORDS SUMMARY | 2024-12-03 09:39 | XMS_ITS ---
[facility] Address [address] [place] [address] Care Team Providers Care Press Assistant And Feeder Name Role Phone Huma Garcia Primary Care Provider Kwadwo Guillen Unavailable [phone] REASON FOR VISIT same day rs 10/10/24 Encounters Encounter Location Date Provider Diagnosis [address] [address] 10/10/2024 Kwadwo Hendricks Plan Of Treatment Next Appt Details Provider Name:Kwadwo Hendricks , 12/27/2024 12:00:00 PM, [address] [place] [address], [address], Progress Notes * Bella HENLEY GDOB:1940 (83 yo F)Acc No.[id number]:10/10/2024 Patient:?Bella HENLEY :1940???Age:83 Y???Sex:Female Address:[address] [place] [address], * true * Date:? Generated for Printi ng/Fadanitag/eTransmitting on:?12/03/2024 09:39 AM EDT
--- OUTSIDE RECORDS SUMMARY | 2024-12-03 09:40 | XMS_ITS ---
Author Organization [facility] Address [address] [place] [address] Care Team Providers Care Teletypewriter Installer Name Role Phone Huma Garcia Primary Care Provider Kwadwo Guillen Unavailable [phone] Medications Medication SIG (Take, Route, Frequency, Duration) [...] CeleXA Not-Taking Mucinex PRN Active CO-Q 10 [place]-3 Fish Oil Not-Taking ALPRAZolam 20 mg 1x [...] Negative Encounters Encounter Location Date Provider Diagnosis [facility] [place] [address] [place] [address] 10/10/2024 Kwadwo Hendricks Plan Of Treatment Next Appt Details Provider Name:Kwadwo Hendricks , 12/27/2024 12:00:00 PM, [address] [place], [address], Progress Notes * Bella HENLEY GDOB:1940 (84 yo F)Acc No.[id number]:10/10/2024 Progress Note Patient:?Bella HENLEY Provider:?Kwadwo Hendricks DPM :1940???Age:83 Y???Sex:Female D ate:10/10/2024 Address:[address] [place], [place] [phone] Pcp:Huma Garcia Subjective: * Chief Complaints: * [...] Notes to Pharmacist: PRN, Not-Taking/PRN CO-Q 10 [place]-3 Fish Oil , Not-Taking/PRN Aspir- 81 , [...] DPM Date:?2024 Generated for José Luis bryan/Elizabeth/Marquise on:?12/03/2024 09:39 AM EDT
== END 2024-12-02 08:58 | disposition home or self-care (01) ==
LOC: HO.HOSX 08:57
DX: M25.531 Pain in right wrist (principal); S52.501A Unspecified fracture of the lower end of right radius, initial encounter for closed fracture; X58.XXXA Exposure to other specified factors, initial encounter; Y93.9 Activity, unspecified; Y92.9 Unspecified place or not applicable; Y99.9 Unspecified external cause status
CPT/HCPCS: 29085; 73110; 99212

== ENCOUNTER 2024-12-02 14:15 | Outpatient (AMB) | payer MEDICARE, OTHER, SELFPAY ==
--- NOTE | 2024-12-02 14:30 | A.OFFVIS_ITS ---
Vital Signs 12/02/24 14:36 Height 5 ft 8 in Weight 180 lb BMI 27.4 Intake Visit Reasons: FC - Right Distal Radius Fx 11/22/24 Intake Note: Bella is an 84 year old female who presents today for a follow up of right distal radius fracture, DOI 11/22/24. Splint removed and x-rays updated. Patient reports she is doing well, states mild pain and her arm feels tired. Her bru ising has improved. Allergies buspirone Allergy (Intermediate, Verified 12/02/24 14:39) Rash Sulfa (Sulfonamide Antibiotics) Allergy (Intermediate, Verified 12/02/24 14:39) RASH cefuroxime Allergy (Unknown, Verified 12/02/24 14:39) Unknown garlic [GARLIC] Allergy (Unknown, Verified 12/02/24 14:39) PER H&P metronidazole [From FLAGYL] Allergy (Unknown, Verified 12/02/24 14:39) OCULAR MIGRAINES penicillamine Allergy (Unknown, Verified 12/02/24 14:39) Unknown ciprofloxacin Adverse Reaction (Intermediate, Verified 12/02/24 14:39) neuropathic pain lisinopril Adverse Reaction (Intermediate, Verified 12/02/24 14:39) Cough nitrofurantoin Adverse Reaction (Mild, Verified 12/02/24 14:39) GI side effects cefuroxime Allergy (Intermediate, Uncoded 12/02/24 14:39) wheezy cough/itch flagyl Allergy (Unknown, Uncoded 12/02/24 14:39) Unknown From KEFLEX Allergy (Unknown, Uncoded 12/02/24 14:39) RASH Metoprolol Tartrate Allergy (Unknown, Uncoded 12/02/24 14:39) Unknown Sulfacet-R Allergy (Unknown, Uncoded 12/02/24 14:39) Unknown HPI HPI FC - Right Distal Radius Fx 11/22/24: Details: Bella is an 84 year old female who presents today for a follow up of right distal radius fracture, DOI 11/22/24. Splint removed and x-rays updated. Patient reports she is doing well, states mild pain and her arm feels tired. Her bruising has improved. Denies numbness or tingling in the right upper extremity. The patient's son does report that he has had to advise her against any heavy lifting multiple times, as she attempts to lift baskets laundry among other things. FORMERLY [facility] Medical History Pulmonary nodule Chest pain URI (upper respiratory infection) HTN (hypertension) Cough Heart palpitations Constipation LLQ abdominal pain Anxiety Breast cancer screening Breast pain, left Elevated vitamin B12 level Neck muscle spasm Strain of neck muscle Low back pain Pubic ramus fracture Sore throat Skin tear of upper arm without complication Head injury, acute, without loss of consciousness Fall Dizziness Medication noncompliance due to cognitive impairment RLQ abdominal pain Sinusitis Flu syndrome Precordial chest pain Atypical chest pain Cold intolerance Former smoker Abnormal lung sounds Fever Bilateral calf pain Nausea Left lower quadrant abdominal pain Dysuria Fatigue Lower extremity weakness Aortic stenosis Obstipation Dark stools Lower abdominal pain Gastroenteritis Neck pain on right side Back pain Rhinitis Elevated BP without diagnosis of hypertension Non-rheumatic aortic stenosis Diverticulitis GERD (gastroesophageal reflux disease) Cat scratch Cat bite Epigastric discomfort Diarrhea Nausea Viral syndrome GERD (gastroesophageal reflux disease) Neuropathy Arthritis GERD (gastroesophageal reflux disease) HTN (hypertension) Irritable bowel Heart murmur Surgical History S/P TAVR (transcatheter aortic valve replacement) Hx of esophagogastroduodenoscopy Hx of colonoscopy History of tonsillectomy History of appendectomy Family History Father No problems noted. Mother No problems noted. Social History Household Members: Children Housing: House Are you a primary auto care center manager to a significant other at home: No Do you presently have visiting nurse or other home services: No Alcohol intake: former Patient Tobacco Use Status: Former Tobacco user Tobacco use type: Cigarette e-Cigarette/Vaping Use: Never Used Second Hand Smoke Exposure: Yes Advance Directives Date on File: 03/28/23 service: No Current occupational status: retired Cognitive needs: No Hearing needs: No Vision needs: Yes (glasses) Review of Systems Const All systems reviewed & are unremarkable except as noted in HPI and below Physical Exam Vital Signs: BMI result Body Mass Index 27.4 Extrem Other: Patient is alert, oriented, and in no acute distress. Neuro: Normal sensation of the tips of all digits of the right hand at this time Vascular: Cap refill brisk Pain: No tenderness to palpation noted about the distal radius of the right wrist No pain with range of motion of the hand ROM: Patient is able to make a closed fist and extend all digits of the right hand fully Skin: No lacerations or abrasions. General: No ecchymosis, erythema, or evidence of infection. Psych: Appears grossly normal Affect normal Attitude cooperative Office Procedures Casting/Splints 79638-Clhk/Wrist Cast Application Procedure code (CPT) selection complete Assessment & Plan Assessment & Plan (1) Fracture of right distal radius: Code(s): S52.501A - Unspecified fracture of the lower end of right radius, initial encounter for closed fracture Category: Medical Plan 1. Minimally displaced fracture of right distal radius Date of injury 11/22/2024 Patient is educated about this condition Patient was educated about the typical treatment course At this time, patient was informed that her fracture can be treated nonoperatively, and she will not require surgery Patient was placed into a cast at this time Patient and her son state understanding of this and are amenable to this plan Patient was educated on proper cast care and precautions Patient will follow-up in 2 week with repeat x-rays for reassessment, anticipate cast removal at that time, sooner with any acute concerns Orders: Orders XR wrist RT min 3V Today M25.531 - Pain in right wrist Coding Level of Care Code Global (81514) Diagnoses Fracture of right distal radius S52.501A CPT Codes Casting - CPT: 54920-Illq/Wrist Cast Application ([id number])
[2024-12-02 14:36] VITALS: BMI 27.4
--- OUTSIDE RECORDS SUMMARY | 2024-12-02 16:06 | XMS_ITS | Clinical Summary ---
Author Organization [facility] it Address [address] [place] [address] Care Team Providers Care Tobacco Stripping Machine Operator Name Role Phone Unavailable Primary Care Provider [...] Documents on File Type Date Recorded Patient Sanitation Lead Expl anation Health Care Decision (hx) 09/07/2023 HE [facility] C[facility] PROXY Health Care Decision (hx) 03/03/2023 HE ALTH CARE PROXY
--- OUTSIDE RECORDS SUMMARY | 2024-12-02 16:06 | XMS_ITS | Data Portability ---
Author Organization [facility], Home Service Address [address] [place] [address] Assessment No assessment recorded. Plan of Treatment Reminders Order Date Submit Date Provider Last Modified By Organization Details Last Modified Time Details Appointments None recorded. Lab BMP, blood [address] [facility], [address] [place] [address], [facility] [[email or web address] D, [place], [address], 9 07:42:19 lipid panel, blood [address] [facility], [address] [place] [address], [facility] [[email or web address] D, [place], [address], 9 07:42:20 Referral None recorded. Procedures None recorded. Surgeries None recorded. Imaging None recorded. Medication Orders Cipro 500 mg tablet 2018 019 [id number], [address] [place], [place], [id number], 9 11:53:38 Zithromax Z-Rajesh 250 mg tablet 2018 019 [facility] #[id number], [address] [place], [place], [id number], 9 11:53:23 metoprolol succinate ER 25 mg tablet,exte nded release 24 hr 2018 [id number], [address] [place], [place], [phone], 9 11:15:40 Patient Targets Encounter Date Encounter Id Patient Goals Patient Target Last Modified By Organization Details Last Modified Time Call therapist to schedule counseling marilynn Not available 09/26/2018 11:54:07 Patient Instructions Encounter Date Encounter Id Patient Instructions Last Modified By Organization Details Last Modified Time 09/21/2018 [id number] Relaxation, reconsider escitalopram- will review at f/u next week to avoid dual med starting together marilynn Not available 09/21/2018 15:27:44 09/26/2018 [id number] pulse oximetry* marilynn Not available 09/26/2018 11:54:08 10/08/2018 [id number] Acute Sinusitis: Care Instructions marilynn Not available 10/08/2018 11:28:17 pulse oximetry* marilynn Not available 10/08/2018 11:28:17 12/04/2018 [id number] pulse oximetry* marilynn Not available 12/04/2018 12:22:51 Reason for Referral None Reported. Results Created Date Observation Date Name Description Value Unit Range Abnormal Flag Note LastModifiedBy Organization Detail LastModifiedTime 09/26/19 19 09/26/2018 pulse oxime try* Result 96 Not Available [facility] [address], [address], 09/26/2018 11:15:30 10/08/19 19 10/08/2018 pulse oxime try* Result 97 Not Available [facility] [address], [address], 10/08/2018 11:18:00 12/05/19 19 12/04/2018 pulse oxime try* Result 97 Not Available [facility] [address], [address], 12/04/2018 11:55:20 Result Notes None recorded. Problems Name Problem SNOMED Code Status Onset Date Resolution Date Notes Provider Name and Address Organization Details Recorded Time Abdominal aortic aneurysm 899061707 Active 2017 Samina Lama NP, [address] [place], [address], [facility] 8 13:58:39 Diverticul itis 672605097 Active 2017 Tainaronnell Hanson [facility] 8 16:58:14 Chronic obstructiv e pulmonary disease 12722914 [facility] 8 16:58:22 Aortic valve stenosis 52133263 Active 2017 [place] [facility] 8 16:58:36 Anxiety 22438839 Active 2017 [facility]ain[facility]nell [facility] 8 16:58:45 Cystocele 959477633 Active 2017 [place] [facility] 8 16:58:58 Problem Notes None recorded. Medical Equipment None Reported. Allergies Allergen ID Allergen Name Allergen Category Reaction Reaction Severity Criticality Documentation Date Start Date Code Code System Note Provider Name and Address Organization Details Recorded Time 1547 Substance with sulfonami de structure and antibacte rial mechanism of action (substanc e) medicatio n Not available Not available Not available 02/06/2018 70636 8003 SNOMED Tainaronnell Hanson [facility] 8 16:57:43 1548 Keflex medicatio n Not available Not available Not available 02/06/2018 7 RxNorm Tainaronnell Hanson [facility] 8 16:57:55 2328 Flagyl medicatio n other moderate Not available 05/29/201816523 6 RxNorm Tainaronnell Hanson [facility] 8 11:44:55 2717 metoprolo l Not available chest pain Not available Not available 09/21/2018 6918 RxNorm Tainaronnell Hanson [facility] 9 16:31:23 Medications Name Sig [...] % 128 mm[Hg] 84 mm[Hg] Taina Hanson [facility] 9 14:32:26 Date Recorded Body height Heart rate Oxygen saturation Oxygen saturation in Arterial blood by Pulse oximetry Systolic blood pressure Diastolic blood pressure Provider Name and Address Organization Details Last Updated DateTime 9 168.91 cm 90 /min 96 % 96 % 124 mm[Hg] 80 mm[Hg] Eunice Molina [facility] 9 11:17:24 Date Recorded Body height Oxygen saturation Oxygen saturation in Arterial blood by Pulse oximetry Heart rate Body temperature Systolic blood pressure Diastolic blood pressure Provider Name and Address Organization Details Last Updated DateTime 9 168.91 cm 97 % 97 % 112 /min 98.2 [degF] 142 mm[Hg] 86 mm[Hg] Tainaronnell Hanson [facility] 9 11:17:37 Date Recorded Heart rate Provider Name an d Address Organization Details Last Updated DateTime 10/08/2018 84 /min Samina Lama NP, [address] [place], [address], [facility] 10/08/2018 11:28:37 Date Recorded Body height Heart rate Oxygen saturation Oxygen saturation in Arterial blood by Pulse oximetry Systolic blood pressure Diastolic blood pressure Provider Name and Address Organization Details Last Updated DateTime 9 168.91 cm 105 /min 98 % 98 % 140 mm[Hg] 80 mm[Hg] [facility] 9 11:45:01 Date Recorded Heart rate Provider Name an d Address Organization Details Last Updated DateTime 10/19/2018 80 /min Samina Lama NP, S [address] [place], [address], [facility] 10/19/2018 12:04:58 Date Recorded Body height Body mass index (BMI) Body weight Oxygen saturation Oxygen saturation in Arterial blood by Pulse oximetry Heart rate Systolic blood pressure Diastolic blood pressure Provider Name and Address Organization Details Last Updated DateTime 9 168.91 cm 31.1 kg/m2 80709.6 7 g 97 % 97 % 97 /min 120 mm[Hg] 90 mm[Hg] Dahiana Ha [facility] 9 11:56:24 Social History Question Answer Notes LastModified by Organizat ion Details LastModified Time Tobacco Smoking Status Former Smoker Not Available [facility]/07[facility]2020 03:36:24 What Was The Date Of Your Most Recent Tobacco Screening? 12/04/2018 [id number] Information not available 07/07/2020 Sex: Unknown Functional [...] virus, quadrivalent, preservative 8 completed Eunice damon [facility] 09/26/2018 11:16:26 Past Encounters Encounter ID Performer Location Encounter Start Date Encounter Closed Date Diagnosis/Indication Diagnosis SNOMED-CT Code Diagnosis ICD10 Code Diagnosis Note [id number] Samina Lama NP, S [facility] [address] [facility],[place] [address] 02/07/2018 11:02:27 02/07/2018 16:46:02 Anxiety 72220837 F41.9 Nail changes 942761157 L 60.9 Abdominal aortic aneurysm 475098308 I71.4 CT 11/2017, no changes 2016, 2.85 cm Aortic david nosis, non-rheumatic 536381748 I35.0 stable Gastroesop hageal reflux disease 588149673 K21.9 d/c yajaira mints, call if persists Insomnia 913137766 G47.0 0 review proper sleep hygiene be more active during day avoid naps [id number] Samina Lama NP, S [facility] [address] [facility],[place] [address] 03/16/2018 11:29:23 03/20/2018 08:12:01 Dehydration 15735852 E86.0 Gastroenteritis 74201221 K52.9 Aortic valve stenosis 60 344362 I35.0 stable, follow [id number] Samina Lama NP, S [facility] [address] [facility],[place] [address] 05/16/2018 13:23:14 05/16/2018 14:06:44 Anxiety 12770850 F41.9 BID lorazepam helps Aortic valve stenosis 60 797359 I35.0 stable, echo 05/31/2017 Active or passive immunization 727920365 Z23 Abdominal aortic aneurysm 405630949 I71.4 CT 11/2017, no changes 2016, 2.85 cm Chronic ob structive pulmonary disease 36102404 J44.9 Non smoker X years, asymptomat ic Diverticular disease 397 684415 K57.90 no recent flare [id number] Samina Lama NP, [facility] [address] [facility],[place] [address] 05/29/2018 11:40:58 05/29/2018 16:52:51 Aortic valve stenosis 89557158 I35.0 stable, echo 05/31/2017 Anxiety 55579521 F41.9 BID lorazepam helps, discussed current fears re: Constipation 30614853 K5 9.00 [id number] Samina Lama NP, S [facility] [address] [facility],[place] [address] 08/14/2018 11:20:27 08/14/2018 17:00:16 Anxiety 06518967 F41.9 BID lorazepam helps, discussed current fears Aortic valve stenosis 60 979293 I35.0 stable, echo 05/31/2017 Diverticulitis 605456576 K57.92 Increased frequency of urination 654230662 R35.0 [id number] Samina Lama NP, S [facility] [address] [facility],[place] [address] 08/20/2018 11:12:33 08/20/2018 12:20:46 Anxiety 78586026 F41.9 BID alprazolam helps, discussed current fears Diverticulitis 769498358 K57.92 Aortic valve stenosis 60 956349 I35.0 stable, echo 05/31/2017 Family problems 56044926 4 Z63.79 Suggest therapy, names provided. Pt agrees [id number] Samina Lama NP, S [facility] [address] [facility],[place] [address] 09/12/2018 10:19:31 09/12/2018 20:18:16 Abdominal aortic aneurysm 768458277 I71.4 CT 11/2017, no changes 2016, 2.85 cm Chronic ob structive pulmonary disease 98135519 J44.9 Non smoker X years, asymptomat ic Anxiety 79963642 F41.9 BID alprazolam helps, discussed current fears Aortic valve stenosis 60 377638 I35.0 stable, echo 05/31/2017 [id number] Samina Lama NP, [facility] [address] [facility],[place] [address] 09/21/2018 14:26:58 09/25/2018 11:17:00 Anxiety 06186599 F41.9 discussed current fears again, see below Aortic valve stenosis 60 804840 I35.0 [id number] Samina Lama NP, S [facility] [address] [facility] [address],[place] [address] 09/26/2018 11:12:05 09/26/2018 13:02:53 Hypertensive disorder 02515347 I10 Chronic ob structive pulmonary disease 31865328 J44.9 Non smoker X years, asymptomat ic Anxiety 50776025 F41.9 discussed current fears again, see below Aortic valve stenosis 60 316024 I35.[place] [id number] Samina Lama NP, [facility] [address] [facility] [address],[place] [address] 10/08/2018 11:12:38 10/08/2018 14:35:10 Cough 73227978 R05 Acute sinusitis 09326826 J01.90 Anxiety 64908095 F41.9 revisited [id number] Samina Lama NP, S [facility] [address] [facility] [address], [place] [address] 10/19/2018 11:41:00 10/19/2018 12:37:34 Diverticulitis 855850887 K57.92 Intolerant Flagyl Anxiety 11241401 F41.9 revisited Aortic valve stenosis 60 766205 I35.0 asymptomat ic Abdominal aortic aneurysm 251851562 I71.4 CT 11/2017, no changes 2016, 2.85 cm Chronic ob structive pulmonary disease 92710126 J44.9 Non smoker [place], [place] [id number] Samina Lama NP, S [facility] [address] [facility] [address] [address] 12/04/2018 11:49:58 12/04/2018 16:03:42 Chronic obstructive pulmonary disease 83623490 J44.9 Non smoker X years, asymptomat ic Anxiety 44596769 F41.9 revisited Aortic valve stenosis 60 179243 I35.0 asymptomat ic Health Concerns Section Related Observation LastModified by Organization Detai ls LastModified Time None Recorded Concern Status LastModified by Organization Details LastModified Time None Recorded Advance Directives Directive None Recorded Payers Encounter Date Sequence Insurance Name Policy Number Policy Berry Covered Member ID Berry Member ID Guarantor Name 09/21/2018 2 [facility] [id number] Bella Knappel [id number] Bella Eleanor 09/21/2018 1 MEDICARE B-MS: [employer] Bella Henley [id number] Bella Henley 09/26/2018 2 [facility] [id number] Bella Keith Kale [id number] Bella Henley 09/26/2018 1 MEDICARE B-MS: [employer] Bella Henley [id number] eBlla Henley 10/08/2018 2 [facility] [id number] Bella Henley [id number] Bella Henley 10/08/2018 1 [facility]IC[facility] B-[facility]: [facility] Bella Henley [id number] Bella Henley 10/19/2018 2 [facility] [id number] Bella Henley [id number] Bella Henley 10/19/2018 1 MEDIC[facility] B-[facility]: [facility] Bella Henley [id number] Bella Henley 12/04/2018 2 [facility] [id number] Bella Henley [id number] Bella Henley 12/04/2018 1 MEDICARE B-MS: [facility] Bella Henley [id number] Bella Henley Notes Date Note Type Note Provider Name a nd Address Organization Details Recorded Time 09/21/2018 text/html Here with concer ns BP had panic attack this am, ambulance was called Checked BP after pts episode was 158/101 Did not start escitalopram prescribed last week , under a great deal of stress Samina Lama NP, S [address] [place], [address], [facility] 09/21/2018 15:27:56 09/26/2018 text/html see [...] complete ADL's Samina Lama NP, S [address] [place], [address], [facility] 09/26/2018 11:54:50 10/08/2018 text/html Same [...] family situation Samina Lama NP, S [address] [place], [address], [facility] 10/08/2018 11:49:45 10/19/2018 text/html Yesterday felt o k last night 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 this a.m. also increased voiding w/no dysuria no N/V/D/C, no BRBPR or hematuria Samina Lama NP, S [address] [place], [address], [facility] 10/19/2018 12:09:27 12/04/2018 text/html Very anxious re: husbands cognitive decline/getting worn out In therapy w/Peter Dopp Son also recent renal cancer, surgery went well.-but pt. gets worked up over everything pt recently started back on allergy shots some heartburn and post nasal drip Samina Lama NP, S [address] [facility], [place], [address], [facility] 12/04/2018 12:23:16 OBGyn Episode No OBEpisode recorded.
--- OUTSIDE RECORDS SUMMARY | 2024-12-02 16:06 | XMS_ITS ---
Author Organization [facility] Address [address] [place] [address] Care Team Providers Care Patient Office Rep Name Role Phone Huma Garcia Primary Care Provider Kwadwo Guillen Unavailable [phone] REASON FOR VISIT same day rs 10/10/24 Encounters Encounter Location Date Provider Diagnosis [address] [address] 10/10/2024 Kwadwo Hendricks Plan Of Treatment Next Appt Details Provider Name:Kwadwo Hendricks , 12/27/2024 12:00:00 PM, [address] [place] [address], [address], Progress Notes * Bella HENLEY GDOB:1940 (83 yo F)Acc No.[id number]:10/10/2024 Patient:?Bella HENLEY :1940???Age:83 Y???Sex:Female Address:[address] [place] [address], * true * Date:? Generated for Printi ng/Fadanitag/eTransmitting on:?12/02/2024 04:06 PM EDT
--- OUTSIDE RECORDS SUMMARY | 2024-12-02 16:06 | XMS_ITS ---
Author Organization [facility] Address [address] [place] [address] Care Team Providers Care Cutter Banana Room Name Role Phone Nick Gomez Primary Care Provider Unavailab Anatoliy Montgomery [phone] REASON FOR VISIT retching Encounters Encounter Location Date Provider Diagnosis [facility] [address] [place] [address] 03/06/2024 Anatoliy Escobar Plan Of Treatment No Information Progress Notes * SELINA KNIGHTOB:1940 ( 84 yo F)Acc No.[id number]:03/06/2024 Progress Notes Patient:?VIKAS KNIGHT Provider:?Anatoliy Escobar MD :1940???Age:83 Y???Sex:Female D ate:03/06/2024 Address:[address] [place], [place] [id number] Pcp:Nick Gomez Subjective: * Chief Complaints: * ???1. Retching. * Medical History:? Objective: * Vitals:? Assessment: Plan: * Treatment: * * The named appointment provid er may or may not be the originator of this progress note, and it is not deemed complete until electronically signed by the appointment provider. Sign off status: Pending * Provider:?Anatoliy Escobar MD Date:? 024 Generated for José Luis bryan/Elizabeth/eTransmitting on:?12/02/2024 04:06 PM EDT
--- OUTSIDE RECORDS SUMMARY | 2024-12-02 16:06 | XMS_ITS ---
Author Organization [facility] Address [address] [place] [address] Care Team Providers Care Patient Financial Specialist Name Role Phone JoseLisaregina Primary Care Provider UnavailKwadwo Redman Unavailable [phone] Julieth Rosa Unavailable [phone] Allergies Allergen (clinical drug ingredient) Drug/Non Drug [...] Not-Taki ng Mucinex PRN Active CO-Q 10 Walden-3 Fish Oil Not-Taking Aspir-81 Not-Taking CeleXA Not-Taking [...] Problem Acquired hammer toe of left foot (2459590560295356 ) Other hammer toe(s) (acquired), left foot (M20.42) Active confirmed Problem Localized, primary osteoarthritis of the ankle and/or foot (279341113) Arthritis of joint of lesser toe, left (M19.072) Active confirmed Vital Signs Height 5 ft 6 in in 10/11/2024 Weight 163 lbs 10/11/2024 BMI 26.31 kg/m2 10/11/2024 Blood pressure systolic 127 mm Hg 10/11/19 25 Blood pressure diastolic 74 mm Hg 025 Encounters Encounter Location Date Provider Diagnosis [facility] [place] [address] [place] [address] 10/11/2024 Julieth Rosa Ischemic ulcer of le [...] Provider Name:Kwadwo Hendricks , 12/27/2024 12:00:00 PM, [address] [place] [address], [address], Procedure Notes * Category Sub-Category Detail Notes [...] of the wound post debridement is stable (01077), The patient was instructed on importance of [...] * EUGENE Bella GDOB:1940 (83 yo F)Acc No.[id number]:10/11/2024 Progress Note Patient:?Bella HENLEY Provider:?Julieth Rosa DPM :1940???Age:83 Y???Sex:Female D ate:10/11/2024 Address:[address] [place], [place] [address] Pcp:Huma Garcia Subjective: * Chief Complaints: * [...] * Hospitalization/Major Diagno stic Procedure:?Patient admitted to [facility] x 5 days; diverticulitis 12/2014[facility]- stomach pains - 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 ?Marital status: single, . 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 * Medications:?TakingVitamin D 3 Mirtazapine Myrbetriq [...] , Notes to Pharmacist: PRNNot-Taking/PRNTrileptal CO-Q 10 Walden-3 Fish Oil Aspir-81 CeleXA Valsartan 40 MG [...] with the patientNot-Taking/PRN Trileptal Not-Taking/PRN CO-Q 10 Walden-3 Fish Oil Not-Taking/PRN Aspir-81 Not-Taking/PRN CeleXA Not-Taking/PRN [...] of the wound post debridement is stable (38322), The patient was instructed on importance of [...] till condition is completely healed.? * Procedure Codes:?00661 ACTIV E WOUND CARE/20 CM OR <, [...] DPM Date:?03/2025 Generated for José Luis bryan/Elizabeth/eTransmitting on:?12/02/2024 04:06 PM EDT History and Physical Notes * HPI (History [...] ERYTHEMA, absent, PAIN ON PALPATION, present Orthopedic FOOTWEAR EVALUATION: shoe gear p roperties exacerbate patients foot/toe deformity DIGITAL DEFORMITIES: Digital [...]
--- OUTSIDE RECORDS SUMMARY | 2024-12-02 16:07 | XMS_ITS ---
Author Organization [facility] Address [address] [place] [address] Care Team Providers Care V Belt Curer Name Role Phone Nick Gomez Primary Care Provider Unavailab Anatoliy Montgomery [phone] REASON FOR VISIT constipation Encounters Encounter Location Date Provider Diagnosis [facility] [address] [place] [address] 03/06/2024 Anatoliy Escobar Plan Of Treatment No Information Progress Notes * SELINA KNIGHTOB:1940 ( 84 yo F)Acc No.[id number]:03/06/2024 Progress Notes Patient:?VIKAS KNIGHT Provider:?Anatoliy Escobar MD :1940???Age:83 Y???Sex:Female D ate:03/06/2024 Address:[address] [place], [place] [phone] Pcp:Nick Gomez Subjective: * Chief Complaints: * ???1. Constipation. * Medical History:? Objective: * Vitals:? Assessment: Plan: * Treatment: * * The named appointment provid er may or may not be the originator of this progress note, and it is not deemed complete until electronically signed by the appointment provider. Sign off status: Pending * Provider:?Anatoliy Escobar MD Date:? 024 Generated for José Luis bryan/Elizabeth/eTernestosmitting on:?12/02/2024 04:06 PM EDT
--- OUTSIDE RECORDS SUMMARY | 2024-12-02 16:07 | XMS_ITS ---
Author Organization [facility] Address [address] [place] [address] Care Team Providers Care Territory Sales Manager Name Role Phone Nick Gomez Primary Care Provider Unavailab Anatoliy Montgomery [phone] REASON FOR VISIT acid reflux Encounters Encounter Location Date Provider Diagnosis [facility] [address] [place] [address] 06/14/2024 Anatoliy Escobar Plan Of Treatment No Information Progress Notes * SELINA KNIGHTOB:1940 ( 83 yo F)Acc No.[id number]:06/14/2024 Patient:?VIKAS KNIGHT :1940???Age:83 Y???Sex:Female Address:[address] [place] [address] * true * Date:? Generated for José Luis bryan/Elizabeth/eTransmitting on:?12/02/2024 04:07 PM EDT
--- OUTSIDE RECORDS SUMMARY | 2024-12-02 16:07 | XMS_ITS ---
Author Organization [facility] Address [address] [place] [address] Care Team Providers Care Research Associate Policy Name Role Phone Huma Garcia Primary Care Provider Kwadwo Guillen Unavailable [phone] Medications Medication SIG (Take, Route, Frequency, Duration) [...] CeleXA Not-Taking Mucinex PRN Active CO-Q 10 Jbphh-3 Fish Oil Not-Taking ALPRAZolam 20 mg 1x [...] Negative Encounters Encounter Location Date Provider Diagnosis [facility] [place] [address] [place] [address] 10/10/2024 Kwadwo Hendricks Plan Of Treatment Next Appt Details Provider Name:Kwadwo Hendricks , 12/27/2024 12:00:00 PM, [address] [place], [address], Progress Notes * Bella HENLEY GDOB:1940 (84 yo F)Acc No.[id number]:10/10/2024 Progress Note Patient:?Bella HENLEY Provider:?Kwadwo Hendricks DPM :1940???Age:83 Y???Sex:Female D ate:10/10/2024 Address:[address] [place], [place] [address] Pcp:Huma Garcia Subjective: * Chief Complaints: * [...] Notes to Pharmacist: PRN, Not-Taking/PRN CO-Q 10 Jbphh-3 Fish Oil , Not-Taking/PRN Aspir- 81 , [...] DPM Date:?2024 Generated for José Luis bryan/Elizabeth/Marquise on:?12/02/2024 04:07 PM EDT
== END 2024-12-02 14:52 | disposition home or self-care (01) ==
LOC: HO.HOS 14:16
PROVIDERS: PCP Internal Medicine
DX: S52.501A Unspecified fracture of the lower end of right radius, initial encounter for closed fracture (principal)
CPT/HCPCS: 29085; 99024

== ENCOUNTER → 2024-12-02 14:17 | Outpatient (BNV) | payer MEDICARE, OTHER, SELFPAY | PROVIDERS: Visit Provider Radiology Diagnostic Radiology | DX: M25.531 Pain in right wrist (principal) | CPT/HCPCS: 73110 ==

== ENCOUNTER 2024-12-03 16:28 | Outpatient (REF) | payer MEDICARE, OTHER, SELFPAY ==
--- OUTSIDE RECORDS SUMMARY | 2024-12-03 18:52 | XMS_ITS | Data Portability ---
Author Organization [facility], Home Service Address [address] [place] [address] Assessment No assessment recorded. Plan of Treatment Reminders Order Date Submit Date Provider Last Modified By Organization Details Last Modified Time Details Appointments None recorded. Lab BMP, blood [address] [facility], [address] [place] [address], [facility], [place], [address], 9 07:42:19 lipid panel, blood [address] [facility], [address] [place] [address], [facility], [place], [address], 9 07:42:20 Referral None recorded. Procedures None recorded. Surgeries None recorded. Imaging None recorded. Medication Orders Cipro 500 mg tablet 2018 019 [id number], [address] [place], [place], [id number], 9 11:53:38 Zithromax Z-Rajesh 250 mg tablet 2018 019 [id number], [address] [place], [place], [id number], 9 11:53:23 metoprolol succinate ER 25 mg tablet,exte nded release 24 hr 2018 [id number], [address] [place], [place], [id number], 9 11:15:40 Patient Targets Encounter Date Encounter Id Patient Goals Patient Target Last Modified By Organization Details Last Modified Time Call therapist to schedule counseling marilynn Not available 09/26/2018 11:54:07 Patient Instructions Encounter Date Encounter Id Patient Instructions Last Modified By Organization Details Last Modified Time 09/21/2018 [id number] Relaxation, reconsider escitalopram- will review at f/u next week to avoid dual med starting together marilynn Not available 09/21/2018 15:27:44 09/26/2018 [id number] pulse oximetry* marilynn Not available 09/26/2018 11:54:08 10/08/2018 [id number] Acute Sinusitis: Care Instructions marilynn Not available 10/08/2018 11:28:17 pulse oximetry* marilynn Not available 10/08/2018 11:28:17 12/04/2018 [id number] pulse oximetry* marilynn Not available 12/04/2018 12:22:51 Reason for Referral None Reported. Results Created Date Observation Date Name Description Value Unit Range Abnormal Flag Note LastModifiedBy Organization Detail LastModifiedTime 09/26/19 19 09/26/2018 pulse oxime try* Result 96 Not Available [facility] [address], [address], 09/26/2018 11:15:30 10/08/19 19 10/08/2018 pulse oxime try* Result 97 Not Available [facility] [address], [address], 10/08/2018 11:18:00 12/05/19 19 12/04/2018 pulse oxime try* Result 97 Not Available [facility] [address], [address], 12/04/2018 11:55:20 Result Notes None recorded. Problems Name Problem SNOMED Code Status Onset Date Resolution Date Notes Provider Name and Address Organization Details Recorded Time Abdominal aortic aneurysm 359506904 Active 2017 Samina Lama NP, [address] [place], [address], [facility] 8 13:58:39 Diverticul itis 778001658 Active 2017 Tainaronnell Hanson [facility] 8 16:58:14 Chronic obstructiv e pulmonary disease 72911936 [facility] 8 16:58:22 Aortic valve stenosis 60517490 Active 2017 [place] [facility] 8 16:58:36 Anxiety 01501366 Active 2017 [facility] 8 16:58:45 Cystocele 731104191 Active 2017 [place] [facility] 8 16:58:58 Problem Notes None recorded. Medical Equipment None Reported. Allergies Allergen ID Allergen Name Allergen Category Reaction Reaction Severity Criticality Documentation Date Start Date Code Code System Note Provider Name and Address Organization Details Recorded Time 1547 Substance with sulfonami de structure and antibacte rial mechanism of action (substanc e) medicatio n Not available Not available Not available 02/06/2018 88810 8003 SNOMED Tainaronnell Hanson [facility] 8 16:57:43 1548 Keflex medicatio n Not available Not available Not available 02/06/2018 7 RxNorm Tainaronnell Hanson [facility] 8 16:57:55 2328 Flagyl medicatio n other moderate Not available 05/29/201853833 6 RxNorm Tainaronnell Hanson [facility] 8 11:44:55 2717 metoprolo l Not available chest pain Not available Not available 09/21/2018 6918 RxNorm Tainaronnell Hanson [facility] 9 16:31:23 Medications Name Sig [...] % 128 mm[Hg] 84 mm[Hg] Taina Hanson [facility] 9 14:32:26 Date Recorded Body height Heart rate Oxygen saturation Oxygen saturation in Arterial blood by Pulse oximetry Systolic blood pressure Diastolic blood pressure Provider Name and Address Organization Details Last Updated DateTime 9 168.91 cm 90 /min 96 % 96 % 124 mm[Hg] 80 mm[Hg] Eunice Molina [facility] 9 11:17:24 Date Recorded Body height Oxygen saturation Oxygen saturation in Arterial blood by Pulse oximetry Heart rate Body temperature Systolic blood pressure Diastolic blood pressure Provider Name and Address Organization Details Last Updated DateTime 9 168.91 cm 97 % 97 % 112 /min 98.2 [degF] 142 mm[Hg] 86 mm[Hg] Tainaronnell Hanson [facility] 9 11:17:37 Date Recorded Heart rate Provider Name an d Address Organization Details Last Updated DateTime 10/08/2018 84 /min Samina Lama NP, [address] [place], [address], [facility] 10/08/2018 11:28:37 Date Recorded Body height Heart rate Oxygen saturation Oxygen saturation in Arterial blood by Pulse oximetry Systolic blood pressure Diastolic blood pressure Provider Name and Address Organization Details Last Updated DateTime 9 168.91 cm 105 /min 98 % 98 % 140 mm[Hg] 80 mm[Hg] [facility] 9 11:45:01 Date Recorded Heart rate Provider Name an d Address Organization Details Last Updated DateTime 10/19/2018 80 /min Samina Lama NP, [address] [place], [address], [facility] 10/19/2018 12:04:58 Date Recorded Body height Body mass index (BMI) Body weight Oxygen saturation Oxygen saturation in Arterial blood by Pulse oximetry Heart rate Systolic blood pressure Diastolic blood pressure Provider Name and Address Organization Details Last Updated DateTime 9 168.91 cm 31.1 kg/m2 32715.6 7 g 97 % 97 % 97 /min 120 mm[Hg] 90 mm[Hg] Dahiana Ha [facility] 9 11:56:24 Social History Question Answer Notes LastModified by Organizat ion Details LastModified Time Tobacco Smoking Status Former Smoker Not Available [facility]07[facility] 03:36:24 What Was The Date Of Your Most Recent Tobacco Screening? 12/04/2018 [id number] Information not available 07/07/2020 Sex: Unknown Functional Status None recorded. Mental Status None recorded. Family History Nothing Reported. Medical History Condition Response Coronary Artery Disease N Other N Gout N Blood Diseases N Kidney Stones N Blood Transfusion N Breast Cancer N Depression N COPD N Lung Disease N Defects or Inherited [...] N Thyroid Problems N GI Problems N Skin Problems N Eating Disorder N Anemia N MRSA exposure N Constipation N Mental Illness N Ovarian Cancer N Diabetes N Seizures/Epilepsy N Tuberculosis N Congestive Heart Failure (CHF) N Eczema N Diverticulitis N Abuse/Domestic Violence N Asthma N Reflux/GERD N Hepatitis N Heart Disease N Pulmonary Embolism N Hypertension N Osteoporosis N Chicken Pox N Autism Spectrum Disorder (ASD) N Gynecological HistoryNo gynecological history recorded. Obstetrics History GPAL:G 0 P 0 0 0 0 Immunizations Vaccine Type Date Status Note Provider Nam e and Address Organization Details Recorded Time Influenza, split virus, quadrivalent, preservative 8 completed Eunice damon [facility] 09/26/2018 11:16:26 Past Encounters Encounter ID Performer Location Encounter Start Date Encounter Closed Date Diagnosis/Indication Diagnosis SNOMED-CT Code Diagnosis ICD10 Code Diagnosis Note [id number] Samina Lama NP, S [facility] [address] [facility],[place] [address] 02/07/2018 11:02:27 02/07/2018 16:46:02 Anxiety 67275000 F41.9 Nail changes 125558895 L 60.9 Abdominal aortic aneurysm 430668492 I71.4 CT 11/2017, no changes 2016, 2.85 cm Aortic david nosis, non-rheumatic 953690758 I35.0 stable Gastroesop hageal reflux disease 583731657 K21.9 d/c yajaira mints, call if persists Insomnia 740592427 G47.0 0 review proper sleep hygiene be more active during day avoid naps [id number] Samina Lama NP, S [facility] [address] [facility],[place] [address] 03/16/2018 11:29:23 03/20/2018 08:12:01 Dehydration 77318638 E86.0 Gastroenteritis 32173850 K52.9 Aortic valve stenosis 60 825179 I35.0 stable, follow [id number] Samina Lama NP, S [facility] [address] [facility],[place] [address] 05/16/2018 13:23:14 05/16/2018 14:06:44 Anxiety 42065444 F41.9 BID lorazepam helps Aortic valve stenosis 60 449633 I35.0 stable, echo 05/31/2017 Active or passive immunization 925738862 Z23 Abdominal aortic aneurysm 584519634 I71.4 CT 11/2017, no changes 2016, 2.85 cm Chronic ob structive pulmonary disease 75616378 J44.9 Non smoker X years, asymptomat ic Diverticular disease 397 838516 K57.90 no recent flare [id number] Samina Lama NP, [facility] [address] [facility],[place] [address] 05/29/2018 11:40:58 05/29/2018 16:52:51 Aortic valve stenosis 36214520 I35.0 stable, echo 05/31/2017 Anxiety 09487512 F41.9 BID lorazepam helps, discussed current fears re: Constipation 15642884 K5 9.00 [id number] Samina Lama NP, S [facility] [address] [facility],[place] [address] 08/14/2018 11:20:27 08/14/2018 17:00:16 Anxiety 62336306 F41.9 BID lorazepam helps, discussed current fears Aortic valve stenosis 60 888459 I35.0 stable, echo 05/31/2017 Diverticulitis 337409623 K57.92 Increased frequency of urination 232639184 R35.0 [id number] Samina Lama NP, S [facility] [address] [facility],[place] [address] 08/20/2018 11:12:33 08/20/2018 12:20:46 Anxiety 69861586 F41.9 BID alprazolam helps, discussed current fears Diverticulitis 955284641 K57.92 Aortic valve stenosis 60 755564 I35.0 stable, echo 05/31/2017 Family problems 44611490 4 Z63.79 Suggest therapy, names provided. Pt agrees [id number] Samina Lama NP, S [facility] [address] [facility],[place] [address] 09/12/2018 10:19:31 09/12/2018 20:18:16 Abdominal aortic aneurysm 720681160 I71.4 CT 11/2017, no changes 2016, 2.85 cm Chronic ob structive pulmonary disease 18158359 J44.9 Non smoker X years, asymptomat ic Anxiety 10689026 F41.9 BID alprazolam helps, discussed current fears Aortic valve stenosis 60 883350 I35.0 stable, echo 05/31/2017 [id number] Samina Lama NP, [facility] [address] [facility],[place] [address] 09/21/2018 14:26:58 09/25/2018 11:17:00 Anxiety 16599468 F41.9 discussed current fears again, see below Aortic valve stenosis 60 319921 I35.0 [id number] Samina Lama NP, S [facility] [address] [facility] [address] 09/26/2018 11:12:05 09/26/2018 13:02:53 Hypertensive disorder 57914526 I10 Chronic ob structive pulmonary disease 27740268 J44.9 Non smoker X years, asymptomat ic Anxiety 59139329 F41.9 discussed current fears again, see below Aortic valve stenosis 60 495221 [place] [id number] Samina Lama NP, [facility] [address] [facility] [address] 10/08/2018 11:12:38 10/08/2018 14:35:10 Cough 28508594 R05 Acute sinusitis 50716880 J01.90 Anxiety 64567782 F41.9 revisited [id number] Samina Lama NP, S [facility] [address] [facility] [address] 10/19/2018 11:41:00 10/19/2018 12:37:34 Diverticulitis 266126250 K57.92 Intolerant Flagyl Anxiety 05407583 F41.9 revisited Aortic valve stenosis 60 815444 I35.0 asymptomat ic Abdominal aortic aneurysm 632237336 I71.4 CT 11/2017, no changes 2016, 2.85 cm Chronic ob structive pulmonary disease 18106599 J44.9 [place], [place] [id number] Samina Lama NP, S [facility] [address] [facility] [address] 12/04/2018 11:49:58 12/04/2018 16:03:42 Chronic obstructive pulmonary disease 40458960 J44.9 Non smoker X years, asymptomat ic Anxiety 65775225 F41.9 revisited Aortic valve stenosis 60 635293 I35.0 asymptomat ic Health Concerns Section Related Observation LastModified by Organization Detai ls LastModified Time None Recorded Concern Status LastModified by Organization Details LastModified Time None Recorded Advance Directives Directive None Recorded Payers Encounter Date Sequence Insurance Name Policy Number Policy Berry Covered Member ID Berry Member ID Guarantor Name 09/21/2018 2 [facility] [id number] Bella Knappel [id number] Bella Drummond 09/21/2018 1 [place] Bella Henley [id number] Bella Henley 09/26/2018 2 [facility] [id number] Bella Keith Kale [id number] Bella Henley 09/26/2018 1 [place] [employer] Bella Henley [id number] Bella Henley 10/08/2018 2 [place] [id number] Bella Henley [id number] Bella Henley 10/08/2018 1 MED[place]: [facility] Bella Henley [id number] Bella Henley 10/19/2018 2 [facility] [id number] Bella Henley [id number] Bella Henley 10/19/2018 1 [place]: [facility] Bella Henley [id number] Bella Henley 12/04/2018 2 [facility] [id number] Bella Henley [id number] Bella Henley 12/04/2018 1 [place] [facility] Bella Henley [id number] Bella Henley Notes Date Note Type Note Provider Name a nd Address Organization Details Recorded Time 09/21/2018 text/html Here with concer ns BP had panic attack this am, ambulance was called Checked BP after pts episode was 158/101 Did not start escitalopram prescribed last week , under a great deal of stress Samina Lama NP, [address] [place], [address], [facility] 09/21/2018 15:27:56 09/26/2018 text/html [...] complete ADL's Samina Lama NP, S [address] [place], [address], [facility] 09/26/2018 11:54:50 10/08/2018 text/html [...] family situation Samina Lama NP, S [address] [place], [address], [facility] 10/08/2018 11:49:45 10/19/2018 text/html Yesterday felt o k last night 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 this a.m. also increased voiding w/no dysuria no N/V/D/C, no BRBPR or hematuria Samina Lama NP, S [address] [place], [address], [facility] 10/19/2018 12:09:27 12/04/2018 text/html Very anxious re: husbands cognitive decline/getting worn out In therapy w/Peter Dopp Son also recent renal cancer, surgery went well.-but pt. gets worked up over everything pt recently started back on allergy shots some heartburn and post nasal drip Samina Lama NP, S [address] [facility], [place], [address], [facility] 12/04/2018 12:23:16 OBGyn Episode No OBEpisode recorded.
--- OUTSIDE RECORDS SUMMARY | 2024-12-03 18:52 | XMS_ITS | Patient Health Record ---
Author Organization [facility] Address [address] [place] [address] Care Team Providers Care Trout Farmer Name Role Phone Nick Gomez Primary Care Provider UnavailAnatoliy Hernandez Unavailable [phone] Allergies Allergen (clinical drug ingredient) Drug/Non Drug Allergy documented on EMR Reaction Allergy Type Onset Date Status Sulfa Unknown Drug Allergy Active metronidazole Flagyl Unknown Drug Allergy Act maya amoxicillin / clavulanate Augmentin Unknown Drug Allergy Active garlic (uncoded) Unknown Allergy Act maya Results Component Value Reference Range Notes Complete Blood Count no Diff Reviewed date:01/30/2024 11:58:10 AM Interpretation: Performing Lab:[facility], [address] [place] [phone] Notes/Report: White Blood Count 3.9 4.8-10.8 X10*3/uL [...] Panel Reviewed date:01/30/2024 11:38:45 PM Interpretation: Performing Lab:[facility], [address] [place] [address] Notes/Report: Bilirubin Total 0.6 0.0-1.0 mg/dL Bilirubin Direct 0.2 0.0-0.5 mg/dL Aspartate Amino Transferase 16 5-31 U/L Alanine Aminotransferase 8 0-31 U/L Total Protein 7.4 6.5-8.0 g/dL Albumin Level 4.1 3.5-5.0 g/dL Alkaline Phosphatase 141 39-117 U/L IRON PROFILE Reviewed date:01/30/2024 11:58:22 AM Interpretation: Performing Lab:[facility], [address] [place] [phone] Notes/Report: Iron 60 30-160 mcg/dL Total Iron Binding Capacity 298 228-428 mcg/d L Percent Iron Saturation 20 15-50 % Unsaturated Iron Binding 238 Urine Culture Reviewed date:02/01/2024 12:40:02 PM Interpretation: Performing Lab:[facility], [address] [place] [address] Notes/Report: Urine Culture Report Result Urine Culture 10,000 to 50,000 cfu/ml Urine Culture Mixed bacterial jeffrey a characteristic of Urine Culture urogenital contamination. UA ClnCatch+Micro w/rflx Cul t Reviewed date:01/30/2024 11:57:48 AM Interpretation: Performing Lab:[facility], [address] [place] [phone] Notes/Report: Urine, Clean Catch Color Urine Yellow Appearance Urine Cloudy PH 5.0 5.0-9.0 Glucose Urine UA Negative Negative mg/dL Urine Blood Negative Negative Specific [place] - Urine 1.025 1.005-1.025 Urine Protein Negative Neg-Trace mg/dL Urine Ketones Negative Negative mg/dL Nitrite Urine Negative Negative Leukocyte Esterase Urine Small (1+) Negative RBC Urine 0-2 0-2 /HPF WBC Urine 0-5 0-5 /HPF Squamous Epithelial Cell Urine 0-2 0-2 /HPF Bacteria Urine None Seen None Seen Hyaline Casts Urine 0-2 0-2 /LPF Reason For Referral No Information Medications Medication [...] needed Orally every 4 hrs/prn occasionally Active Immunizations Vaccine Route Administration Date Status Comme nts Flu vaccine no Preserv 3 and > Unknown 06/17/2014 Admin istered Flu vaccine no Preserv 3 and > Unknown 05/05/2015 Admin istered Influenza Unknown 05/05/2017 Administered Influenza Unknown 06/13/2018 Administered Influenza Unknown 06/18/2019 Administered Influenza Unknown 06/04/2020 Administered Influenza Unknown 06/23/2021 Administered Influenza Unknown 05/24/2022 Administered Social History Tobacco Use: Social History Observation Description Date Details (start date - stop date) Former Smoker NA - NA Tobacco Use/Smoking Question Answer Notes Patient is a former smoker How long has it been since you last smoked? 5-10 years Section Notes: Smokes 1 ppd; no alcohol Smokes 1 ppd; no alcohol quit smoking 2 years ago; no alcohol Quit smoking 2013; no alcoho l Quit smoking 2013; no alcohol 2018- diagnosed with dementia and son had renal cancer---alot of stress for the patient Quit smoking 2013; no alcohol 2018- diagnosed with dementia and son had renal cancer---alot of stress for the patient Quit smoking 2013; no alcohol 2018- diagnosed with dementia and son had renal cancer---alot of stress for the patient Quit smoking 2013; no alcohol 2018- diagnosed with dementia(now ) and son had renal cancer---alot of stress for the patient Quit smoking 2013; no alcohol 2018- diagnosed with dementia(now ) and son had renal cancer---alot of stress for the patient Problems Problem Type SNOMED Code ICD Code Onset Dates Problem Status W/U Status Risk Notes Problem 75996162 Rectal bleeding (K62.5) Active confirmed Problem 0363262 Diverticulitis o f large intestine without perforation or abscess without bleeding (K57.32) Active confirmed Problem 340026907 History of adenomatous polyp of colon (Z86.010) Active confirmed Problem 311840401 Irritable bowel syndrome with diarrhea (K58.0) Active confirmed Problem 49280125 Irritable bowel syndrome without diarrhea (K58.9) Active confirmed Problem Elevated liver enzymes level (549896374) Elevated liver function tests (R79.89) Active confirmed Problem 942136582 Diverticulosis (K57.90) Active confirmed Problem 197039691 Gastroesophageal reflux disease without esophagitis (K21.9) Active confirmed Problem 86640940 Heme + stool (R19.5) Active confirmed Problem Hiatal hernia (19892751) Hiatal hernia (K44.9) Active confirmed Problem Gastroesophageal reflux disease (897140252) GERD (gastroesophageal reflux disease) (K21.9) Active confirmed Problem 304399807 Abnormal CT scan , sigmoid colon (R93.3) Active confirmed Problem Alkaline phosphatase raised (897437903) Elevated alkaline phosphatase level (R74.8) Active confirmed Problem 469821769 Irritable bowel syndrome with constipation (K58.1) Active confirmed Problem 94799572 Irritable bowel syndrome with both constipation and diarrhea (K58.2) Active confirmed Problem 467051402 LLQ abdominal pa in (R10.32) Active confirmed Problem 777484493 Gastroesophageal reflux disease, unspecified whether esophagitis present (K21.9) Active confirmed Encounters Encounter Location Date Provider Diagnosis [facility] [address] [place] [address] 12/28/2023 Anatoliy Escobar [facility] [address] [place] [address] 03/05/2024 Anatoliy Escobar [facility] [address] [place] [address] 06/14/2024 Anatoliy Escobar Plan Of Treatment Pending Test Test Name Order Date LIVER PROFILE 11/15/2023 CBC w DIFF 09/27/2021 CELIAC PANEL #10 02/24/2017 Future Test Test Name Order Date COLONOSCOPY 07/13/2012 COLONOSCOPY 12/26/2018 UPPER GI ENDOSCOPY 12/07/2022 COLONOSCOPY 12/07/2022 Insurance Providers Payer Name Payer Address Payer Phone Subscriber Number Group Number Insured Name Patient Relationship to Insured Coverage Start Date Coverage End Date MEDICARE OF [place] [address] [place] [address] [phone] [id number] EU[employer] Self - patient is the insured [facility] INDEMNITY [address] [place] [address] [id number] VIKAS KNIGHT Self - patient is the insured Medical (General) History Medical History History ICD Code Colon and EGD 06-07-2007--no polyps, but diverticulosis; hiatal hernia GERD--EGD in September of 2012 with the finding of a minimal hiatal hernia and gastritis, with biopsies negative for H. pylori and negative for Aldana's esophagus Personal history of colon polyps-tubular adenomas removed in 2003 and 09/2012 Denies [place],DM,CVA,renal disease COPD Colonoscopy 09/2012-small tub ular adenomas removed, mild sigmoid diverticulosis, and small internal hemorrhoids Diverticulitis--Spring 2014 at [facility]--salty parag with IV antibiotics Colonoscopy 10/2014 at [facility]---diverticulos is, nonspecific inflammation EGD 09/2014 at [facility] --HH, mild reflux Colonoscopy 06/2019-1 tubular adenoma re moved, diverticulosis EGD 06/2019 small HH, gastritis, neg Hpy carmen, normal duodenal biopsies IBS with constipation/diarrhea vertigo Surgical History Surgery Date(Month/Year) appendectomy tonsillectomy D&C SBO - Surgery with Dr. Roger at [facility] 11/2013
--- OUTSIDE RECORDS SUMMARY | 2024-12-03 18:52 | XMS_ITS ---
Author Organization [facility] Address [address] [place] [address] Care Team Providers Care Diesel Service Journeyman Name Role Phone Nick Gomez Primary Care Provider Unavailab Anatoliy Montgomery [phone] REASON FOR VISIT constipation Encounters Encounter Location Date Provider Diagnosis [facility] [address] [place] [address] 03/06/2024 Anatoliy Escobar Plan Of Treatment No Information Progress Notes * SELINA KNIGHTOB:1940 ( 84 yo F)Acc No.[id number]:03/06/2024 Progress Notes Patient:?VIKAS KNIGHT Provider:?Anatoliy Escobar MD :1940???Age:83 Y???Sex:Female D ate:03/06/2024 Address:[address] [place], [place] [id number] Pcp:Nick Gomez Subjective: * Chief Complaints: * [...] Date:? 024 Generated for José Luis bryan/Elizabeth/eTernestosmitting on:?12/03/2024 09:39 AM EDT
--- OUTSIDE RECORDS SUMMARY | 2024-12-03 18:52 | XMS_ITS | Clinical Summary ---
Author Organization [facility] Address [address] [place] [address] Care Team Providers Care Equipment Or Machinery Cleaner Name Role Phone Unavailable Primary Care Provider [...] Documents on File Type Date Recorded Patient Rivet Heater Expl anation Health Care Decision (hx) 09/07/2023 HE ALTH CARE PROXY Health Care Decision (hx) 03/03/2023 HE ALTH CARE PROXY
== END 2024-12-03 16:29 | disposition home or self-care (01) ==
LOC: HO.LAB 16:28
PROVIDERS: PCP Internal Medicine; Visit Provider Internal Medicine
DX: Z13.89 Encounter for screening for other disorder (principal)

== ENCOUNTER 2024-12-04 13:56 | Outpatient (REF) | payer MEDICARE, OTHER, SELFPAY ==
[2024-12-04 14:07] LABS: Appearance Urine Clear; Color Urine Yellow; Glucose Urine UA Negative (Negative); Leukocyte Esterase Urine Negative (Negative); Nitrite Urine Negative (Negative); Specific Gravity - Urine 1.015 (1.005-1.025); Urine Blood Negative (Negative); Urine Ketones Negative (Negative); Urine Protein Negative (Neg-Trace)
--- OUTSIDE RECORDS SUMMARY | 2024-12-04 16:41 | XMS_ITS | Patient Health Record ---
[facility] Address [address] [place] [address] Care Team Providers Care Director Of Counseling Name Role Phone Huma Garcia Primary Care Provider Kwadwo Guillen Unavailable [phone] Julieth Rosa Unavailable [phone] Allergies Allergen (clinical drug ingredient) Drug/Non Drug [...] days Active Mucinex PRN Active CO-Q 10 [place]-3 Fish Oil Not-Taking Aspir-81 Not-Taking CeleXA Not-Taking [...] Problem Acquired hammer toe of left foot (1741357663396644 ) Other hammer toe(s) (acquired), left foot (M20.42) Active confirmed Problem Atherosclerosis of [place] arteries of the extremities (024668538223971) Atherosclerosis of [place] artery of both lower extremities, with unspecified presence of clinical manifestation (I70.203) Active confirmed Q7(A), Q8(2B), Q9(1B,2C) Problem Localized, primary osteoarthritis of the ankle and/or foot (752881856) Arthritis of joint of lesser toe, left [...] Ordered Date Performed Result Body Sit e 77000-XVMJBIW NAIL, 6 OR MORE 04/16/2024 N/A 58830-SGQX SKIN LESIONS, OVER 4 04/16/2024 N/A 49599-VRDYFCK NAIL, 6 OR MORE 09/25/2024 N/A 36938-QUTT SKIN LESIONS, OVER 4 09/25/2024 N/A Encounters Encounter Location Date Provider Diagnosis [address] [address] 04/16/2024 Kwadwo Hendricks Skin ulcer of toe of left foot, limited to breakdown of skin L97.521 ; Tinea unguium B35.1 ; Atherosclerosis of [place] artery of both lower extremities, with unspecified presence of clinical manifestation I70.203 ; Pain in right toe(s) M79.674 and Pain in left toe(s) M79.675 [facility] [address] [address] 09/25/2024 Kwadwo Hendricks Atherosclerosis of n ative artery of both lower extremities, with unspecified presence of clinical manifestation I70.203 ; Tinea unguium B35.1 ; Pain in right toe(s) M79.674 and Pain in left toe(s) M79.[address] [address] 10/11/2024 Julieth Perica Ischemic ulcer of le ft foot, limited to breakdown of skin L97.521 ; Other hammer toe(s) (acquired), left foot M20.42 ; Pain in left toe(s) M79.675 ; Arthritis of joint of lesser toe, left M19.072 and Subluxation of metatarsophalangeal joint of toe, initial encounter S93.149A [address] [address] 02/13/2024 Kwadwo Hendricks [address] [address] 04/16/2024 Kwadwo Hendricks [address] [address] 10/07/2024 Kwadwo Hendricks [address] [address] 10/09/2024 Kwadwo Hendricks [address] [address] 10/10/2024 Kwadwo Hendricks Assessments Encounter Date Diagnosis (ICD Code) Assessment Notes Treatment Notes Treatment Clinical Notes Section Notes 04/16/2024 Tinea unguium (ICD-1 0 - B35.1) 04/16/2024 Skin ulcer of toe of left foot, limited to breakdown of skin (ICD-10 - L97.521) 09/25/2024 Atherosclerosis of [place] artery of both lower extremities, with unspecified presence of clinical manifestation (ICD-10 - I70.203) Q7(A), Q8(2B), Q9(1B,2C) 10/11/2024 Other hammer toe(s) (acquired), left foot (ICD-10 - M20.42) 10/11/2024 Ischemic ulcer of le ft foot, limited to breakdown of skin (ICD-10 - L97.521) 10/11/2024 Pain in left toe(s) (ICD-10 - M79.675) 09/25/2024 Tinea unguium (ICD-1 0 - B35.1) 04/16/2024 Atherosclerosis of [place] artery of both lower extremities, with unspecified [...] Name Order Date *Uric Acid, Serum 11/27/2020 69541-SDSWZEP NAIL, 6 OR MORE 03/23/2021 75837-OKLEXWN NAIL, 6 OR MORE 11/23/2021 78658-PWTDHMV NAIL, 6 OR MORE 09/08/2020 51126-BCTIYZU NAIL, 6 OR MORE 09/20/2022 93585-FCAWAKP NAIL, 6 OR MORE 01/06/2023 06566-NJWSVLN NAIL, 6 OR MORE 12/02/2011 49380-JRGXHGK NAIL, 6 OR MORE 04/06/2012 69750-CYYCFCQ NAIL, 6 OR MORE 07/10/2012 21098-YZWREIT NAIL, 6 OR MORE 10/10/2014 17222-ECWSCAE NAIL, 6 OR MORE 03/24/2015 58940-UPJXURP NAIL, 6 OR MORE 07/19/2016 49038-YJTAMDM NAIL, 6 OR MORE 01/10/2017 93938-YQSVIXJ NAIL, 6 OR MORE 08/25/2017 43528-VNNFTTN NAIL, 6 OR MORE 11/24/2017 24408-HFEZXUE NAIL, 6 OR MORE 02/02/2018 96910-LZTKALR NAIL, 6 OR MORE 08/07/2018 63287-BLXJHUV NAIL, 6 OR MORE 04/16/2019 11762-XESUAOM NAIL, 6 OR MORE 03/20/2020 24430-ACMRCFW NAIL, 6 OR MORE 06/12/2020 22696-FIAHYSQ NAIL, 6 OR MORE 06/13/2023 15157-ISHCWUY NAIL, 6 OR MORE 11/10/2023 88777-CZULJDY NAIL, 6 OR MORE 04/16/2024 56359-SGAWZTH NAIL, 6 OR MORE 09/25/2024 42947-Healdrfb Plate 06/13/2023 93345-Ajjdcibi Plate 06/12/2020 35144-Sitbqwwg Plate 03/20/2020 01458-Mjczmemh Plate 04/16/2019 96175-Axzuzoxt Plate 09/20/2022 54897-Keohhpst Plate 09/08/2020 15792-Fldmetit Plate 11/23/2021 58052-Ngesjusq Plate 03/23/2021 02411-Itnpfuug Plate Each Additional 56661-Dwlfzhey Plate Each Additional 50904- Debride <25 sq cm 12/31/2021 28447- Debride <25 sq cm 11/25/2022 74175- Debride <25 sq cm 03/24/2015 77175- Debride <25 sq cm 11/10/2023 49507- Debride <25 sq cm 02/10/2023 43119-EJOV SKIN LESIONS, OVER 4 04/16/20 24 44799-DXCY SKIN LESIONS, OVER 4 09/25/19 25 69089-FZUV SKIN LESIONS, OVER 4 06/13/20 23 71387-XYTN SKIN LESIONS, OVER 4 11/10/19 24 30284-TKHJ SKIN LESIONS, OVER 4 01/07/20 23 07945-JMKU SKIN LESIONS, OVER 4 09/20/19 23 26122-LJRH SKIN LESIONS, 2 TO 4 11/24/19 22 82213, W8255-GJBYJ/INJECT, JOINT/BURSA 0 09/08/2020 73622 - Tenotomy, open flexor 12/01/2017 Next Appt Details Provider Name:Kwadwo Hendricks , 12/27/2024 12:00:00 PM, [address] [facility], [place], [address], Insurance Providers Payer Name Payer Address Payer Phone Subscriber Number Group Number Insured Name Patient Relationship to Insured Coverage Start Date Coverage End Date Medicare National Govt Svcs Inc [address] [place] [address] [id number] KaleJessica gaspare Self - patient is the insured [employer] ([employer] [address] [place] [address] [id number] Jessica Henleye Self - patient is the insured Medical (General) History Medical History History ICD Code back, hip, knee pain transfusions reflux measles chicken pox Anxiety disorder Peripheral neuropathy Fractured Pelvis, Left - 06/2023 Surgical History Surgery Date(Month/Year) tonsillectomy appendectomy intestinal blockage 11/2013 [facility]- Chest pain and Dizziness 06/2023 [facility]- stomach pains - Gerd /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
--- OUTSIDE RECORDS SUMMARY | 2024-12-04 16:41 | XMS_ITS | Clinical Summary ---
Author Organization [facility] it Address [address] [place] [address] Care Team Providers Care Bdc Manager Name Role Phone Unavailable Primary Care Provider [...] Vaccines (1 of 2) 1990 RSV Immunization Adult Patie nts (1 - 1-dose 75+ series) 2015 Depression Screening 10/03/2023 Falls Risk Assessment 10/03/2023 Osteoporosis Screening (Bone Density Screening) 10/03/2023 Social Influencers of Health Screening 10/03/2023 COVID-19 Vaccine (1 - 2023-2 5 season) 2024 Influenza Vaccine [...] Documents on File Type Date Recorded Patient Photograph Inspector Expl anation Health Care Decision (hx) 09/07/2023 HE ALTH CARE PROXY Health Care Decision (hx) 03/03/2023 HE ALTH CARE PROXY
--- OUTSIDE RECORDS SUMMARY | 2024-12-04 16:41 | XMS_ITS ---
Author Organization [facility] Address [address] [place] [address] Care Team Providers Care Tube Carrier Name Role Phone Nick Gomez Primary Care Provider Unavailab Anatoliy Montgomery [phone] REASON FOR VISIT retching Encounters Encounter Location Date Provider Diagnosis [facility] [address] [place] [address] 03/06/2024 Anatoliy Escobar Plan Of Treatment No Information Progress Notes * SELINA KNIGHTOB:1940 ( 84 yo F)Acc No.[id number]:03/06/2024 Progress Notes Patient:?VIKAS KNIGHT Provider:?Anatoliy Escobar MD :1940???Age:83 Y???Sex:Female D ate:03/06/2024 Address:[address] [place], [place] [address] Pcp:Nick Gomez Subjective: * Chief Complaints: * [...] Date:? 024 Generated for José Luis bryan/Elizabeth/eTransmitting on:?12/04/2024 04:41 PM EDT
--- OUTSIDE RECORDS SUMMARY | 2024-12-04 16:42 | XMS_ITS ---
Author Organization [facility] Address [address] [place] [address] Care Team Providers Care Credit Union Examiner Name Role Phone Huma Garcia Primary Care Provider Kwadwo Guillen Unavailable [phone] REASON FOR VISIT same day rs 10/10/24 Encounters Encounter Location Date Provider Diagnosis [address] [address] 10/10/2024 Kwadwo Hendricks Plan Of Treatment Next Appt Details Provider Name:Kwadwo Hendricks , 12/27/2024 12:00:00 PM, [address] [place] [address], [phone], Progress Notes * Bella HENLEY GDOB:1940 (83 yo F)Acc No.[id number]:10/10/2024 Patient:?Bella HENLEY :1940???Age:83 Y???Sex:Female Address:[address] [place] [address], * true * Date:? Generated for Printi ng/Fadanitag/eTransmitting on:?12/04/2024 04:41 PM EDT
--- OUTSIDE RECORDS SUMMARY | 2024-12-04 16:42 | XMS_ITS ---
Author Organization [facility] Address [address] [place] [address] Care Team Providers Care Network Liaison Name Role Phone Nick Gomez Primary Care Provider Unavailab Anatoliy Montgomery [phone] REASON FOR VISIT constipation Encounters Encounter Location Date Provider Diagnosis [facility] [address] [place] [address] 03/06/2024 Anatoliy Escobar Plan Of Treatment No Information Progress Notes * SELINA KNIGHTOB:1940 ( 84 yo F)Acc No.[id number]:03/06/2024 Progress Notes Patient:?VIKAS KNIGHT Provider:?Anatoliy Escobar MD :1940???Age:83 Y???Sex:Female D ate:03/06/2024 Address:[address] [place], [place] [phone] Pcp:Nick Gomez Subjective: * Chief Complaints: * [...] Date:? 024 Generated for José Luis bryan/Elizabeth/eTernestosmitting on:?12/04/2024 04:41 PM EDT
--- OUTSIDE RECORDS SUMMARY | 2024-12-04 16:42 | XMS_ITS ---
Author Organization [facility] Address [address] [place] [address] Care Team Providers Care Engine Tester Name Role Phone JoseLisaregina Primary Care Provider UnavailKwadwo Redman Unavailable [phone] Julieth Rosa Unavailable [phone] Allergies Allergen (clinical drug ingredient) Drug/Non Drug [...] Not-Taki ng Mucinex PRN Active CO-Q 10 [place]-3 Fish Oil Not-Taking Aspir-81 Not-Taking CeleXA Not-Taking [...] Problem Acquired hammer toe of left foot (6705857983416039 ) Other hammer toe(s) (acquired), left foot (M20.42) Active confirmed Problem Localized, primary osteoarthritis of the ankle and/or foot (799783391) Arthritis of joint of lesser toe, left (M19.072) Active confirmed Vital Signs Height 5 ft 6 in in 10/11/2024 Weight 163 lbs 10/11/2024 BMI 26.31 kg/m2 10/11/2024 Blood pressure systolic 127 mm Hg 10/11/19 25 Blood pressure diastolic 74 mm Hg 025 Encounters Encounter Location Date Provider Diagnosis [facility] [place] [address] [place] [address] 10/11/2024 Julieth Rosa Ischemic ulcer of le [...] Provider Name:Kwadwo Hendricks , 12/27/2024 12:00:00 PM, [address] [place] [address], [address], Procedure Notes * Category Sub-Category Detail Notes [...] of the wound post debridement is stable (04773), The patient was instructed on importance of [...] * EUGENE Bella GDOB:1940 (83 yo F)Acc No.[id number]:10/11/2024 Progress Note Patient:?Bella HENLEY Provider:?Julieth Rosa DPM :1940???Age:83 Y???Sex:Female D ate:10/11/2024 Address:[address] [place], [place] [address] Pcp:Huma Garcia Subjective: * Chief Complaints: * [...] * Hospitalization/Major Diagno stic Procedure:?Patient admitted to [facility] x [facility] days; diverticulitis [facility] stomach pains - Gerd /IBS due to anxiety 01/2021,02/20[place] Chest pain and Dizziness 06/20[facility] [...] no. ?Marital status: single, . 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 * Medications:?TakingVitamin D 3 Mirtazapine Myrbetriq [...] , Notes to Pharmacist: PRNNot-Taking/PRNTrileptal CO-Q 10 [place]-3 Fish Oil Aspir-81 CeleXA Valsartan 40 MG [...] with the patientNot-Taking/PRN Trileptal Not-Taking/PRN CO-Q 10 [place]-3 Fish Oil Not-Taking/PRN Aspir-81 Not-Taking/PRN CeleXA Not-Taking/PRN [...] of the wound post debridement is stable ([address]), The patient was instructed on importance of [...] till condition is completely healed.? * Procedure Codes:?13553 ACTIV E WOUND CARE/20 CM OR <, [...] DPM Date:?03/2025 Generated for José Luis bryan/Elizabeth/eTransmitting on:?12/04/2024 04:41 PM EDT History and Physical Notes * [...]
--- OUTSIDE RECORDS SUMMARY | 2024-12-04 16:42 | XMS_ITS ---
Author Organization [facility] Address [address] [place] [address] Care Team Providers Care Education Administrative Assistant Name Role Phone Huma Garcia Primary Care Provider Kwadwo Guillen Unavailable [phone] Medications Medication SIG (Take, Route, Frequency, Duration) [...] CeleXA Not-Taking Mucinex PRN Active CO-Q 10 [place]-3 Fish Oil Not-Taking ALPRAZolam 20 mg 1x [...] Negative Encounters Encounter Location Date Provider Diagnosis [facility] [place] [address] [place] [address] 10/10/2024 Kwdawo Hendricks Plan Of Treatment Next Appt Details Provider Name:Kwadwo Hendricks , 12/27/2024 12:00:00 PM, [address] [place], [address], Progress Notes * Bella HENLEY GDOB:1940 (84 yo F)Acc No.[id number]:10/10/2024 Progress Note Patient:?Bella HENLEY Provider:?Kwadwo Hendricks DPM :1940???Age:83 Y???Sex:Female D ate:10/10/2024 Address:[address] [place], [place] [address] Pcp:Huma Garcia Subjective: * Chief Complaints: * [...] Notes to Pharmacist: PRN, Not-Taking/PRN CO-Q 10 [place]-3 Fish Oil , Not-Taking/PRN Aspir- 81 , [...] DPM Date:?2024 Generated for José Luis bryan/Elizabeth/Marquise on:?12/04/2024 04:42 PM EDT
--- OUTSIDE RECORDS SUMMARY | 2024-12-04 16:42 | XMS_ITS ---
Author Organization [facility] Address [address] [place] [address] Care Team Providers Care Inside Parts Sales Name Role Phone Nick Gomez Primary Care Provider Unavailab Anatoliy Montgomery [phone] REASON FOR VISIT acid reflux Encounters Encounter Location Date Provider Diagnosis [facility] [address] [place] [address] 06/14/2024 Anatoliy Escobar Plan Of Treatment No Information Progress Notes * SELINA KNIGHTOB:1940 ( 83 yo F)Acc No.[id number]:06/14/2024 Patient:?VIKAS KNIGHT :1940???Age:83 Y???Sex:Female Address:[address] [place] [address] * true * Date:? Generated for José Luis bryan/Elizabeth/eTransmitting on:?12/04/2024 04:41 PM EDT
== END 2024-12-04 13:57 | disposition home or self-care (01) ==
LOC: HO.HVNA 13:56
PROVIDERS: Visit Provider Internal Medicine
DX: N39.0 Urinary tract infection, site not specified (principal)
CPT/HCPCS: 81003

== ENCOUNTER 2024-12-05 10:05 | Emergency (ER) | payer MEDICARE, OTHER, SELFPAY ==
--- NOTE | ~2024-12-05 | CT_ITS ---
EXAMINATION: CT ABDOMEN PELVIS WITHOUT IV CONTRAST HISTORY: LLQ pain COMPARISON: Comparison is made with the prior examination dated 05/04/2024. TECHNIQUE: CT scan of the abdomen and pelvis was performed without contrast using standard departmental protocol. Coronal and sagittal reformatted images were generated and reviewed. Oral contrast material was not administered at the request of the referring physician. This CT exam was performed with one or more of the following dose reduction techniques: automated exposure control, adjustment of the mA and/or kV according to patient size, use of iterative reconstruction technique. DLP: 570 mGy-cm FINDINGS: LOWER CHEST: The visualized lung bases are clear. There is no pleural effusion. CARDIOVASCULATURE: The heart is normal in size. The patient is status post aortic valve replacement. There is no pericardial effusion. LIVER: The liver is normal in size and contour. Again seen are cysts at the dome and inferior right lobe measuring up to 12 mm in size. GALLBLADDER / BILE DUCTS: The gallbladder is unremarkable. There is no intra or extrahepatic biliary ductal dilatation. SPLEEN: The spleen is normal in size and has an unremarkable unenhanced appearance. PANCREAS: The pancreas has an unremarkable unenhanced appearance. ADRENAL GLANDS: Unremarkable. KIDNEYS/RETROPERITONEUM: Again seen is a 3 mm nonobstructing calculus at the upper pole of the left kidney. Additional smaller calculi are noted at the lower pole. There is no hydronephrosis.. There is no hydronephrosis. LYMPH NODES: No retroperitoneal lymphadenopathy is identified in the abdomen or pelvis. VASCULATURE: Again seen is a 3.3 cm infrarenal abdominal aortic aneurysm. MESENTERY/PERITONEUM: No free fluid. No masses. There is no free intraperitoneal gas. STOMACH: The stomach is collapsed, limiting evaluation. SMALL BOWEL: The small bowel is normal in caliber. COLON: There is a large amount of stool throughout the colon. APPENDIX: The appendix is not seen, however no inflammatory changes are seen adjacent to the cecum. URINARY BLADDER/PELVIC ORGANS: The urinary bladder is unremarkable. The uterus is atrophic, consistent with the patient's age. BONES / SOFT TISSUES: There is degenerative disc disease of the spine. CT/CT abdomen pelvis wo IV con IMPRESSION: 1. Left nephrolithiasis as described without evidence of ureteral obstruction. 2. Large amount of stool throughout the colon. 3. Stable 3.3 cm infrarenal abdominal aortic aneurysm. Electronically signed by: Anatoliy Elias MD 12/05/2024 03:37 PM EDT RP
[2024-12-05 10:10] VITALS: BP 148/90; PULSE 89; RESP 20; TEMP 36.5; O2SAT 94; BMI 28.2
--- NOTE | 2024-12-05 10:12 | ED.GENADULT ---
HPI - General Adult General Chief complaint: Abdominal Pain Stated complaint: l side pain Time Seen by Provider: 12/05/24 11:07 Source: patient, family and old records reviewed Mode of arrival: ambulatory Limitations: no limitations History of Present Illness ED Provider: RENÉ TRIPATHI narrative: 84 yo female wtih PMH of HTN, arthritis, s/p TAVR, UTIs, COPD, diverticulitis, recurrent LLQ pain, anemia, anxiety who presents with LLQ pain for the past 5 days. She endorses increase in nocturnal urinary frequency but does not note any blood in the urine. She states she had one episode of vomiting this morning after taking morning meds. She denies bowel changes, fever, or chest pain. She has had LLQ pain in the past. No new med changes. MD complaint: abdominal pain Onset (ago): day(s) (4) Location: abdomen Radiation: non-radiation Severity: mild Quality: aching Pain Consistency: constant Relieving factors: none Exacerbating factors: none Associated symptoms: nausea/vomiting Treatments prior to arrival: none Related Data Home Medications ?Medication ?Instructions ?Recorded ?Confirmed folic acid 400 mcg tablet 0.4 mg PO DAILY 11/23/23 11/01/24 alprazolam 0.25 mg tablet 0.25 mg PO BID 03/28/24 11/01/24 fluticasone propionate 50 spray intranasal 08/23/24 11/01/24 mcg/actuation nasal spray,suspension citalopram 20 mg tablet (Celexa) 20 mg PO DAILY 11/28/24 11/28/24 Previous Rx's ?Medication ?Instructions ?Recorded acetaminophen 325 mg capsule 325 mg PO Q4H PRN pain #30 caps 12/17/23 (Tylenol) losartan 25 mg tablet 25 mg PO DAILY 90 days #90 tabs 08/19/24 albuterol sulfate 90 mcg/actuation 2 puff inhalation Q4-6H PRN 09/06/24 aerosol inhaler shortness of breath or wheezing #1 ea fluticasone 250 mcg-salmeterol 50 1 inh inhalation BID #60 ea 09/12/24 mcg/dose blistr powdr for inhalation (Advair Diskus) pantoprazole 40 mg tablet,delayed 40 mg PO DAILY #90 tabs 09/23/24 release (Protonix) clopidogrel 75 mg tablet 75 mg PO QAM #90 tabs 09/27/24 cholecalciferol (vitamin D3) 50 50 mcg PO DAILY #90 tabs 11/01/24 mcg (2,000 unit) tablet (Vitamin D3) mirabegron 25 mg tablet,extended 25 mg PO DAILY 90 days #90 tabs 11/01/24 release 24 hr (Myrbetriq) ondansetron 4 mg disintegrating 4 mg PO Q6H PRN nausea and 11/18/24 tablet vomiting #14 tabs Allergies Allergy/AdvReac Type Severity Reaction Status Date / Time buspirone Allergy Intermediate Rash Verified 12/05/24 10:14 Sulfa (Sulfonamide Allergy Intermediate RASH Verified 12/05/24 10:14 Antibiotics) cefuroxime Allergy Unknown Unknown Verified 12/05/24 10:14 garlic [GARLIC] Allergy Unknown PER H&P Verified 12/05/24 10:14 metronidazole [From FLAGYL] Allergy Unknown OCULAR Verified 12/05/24 10:14 MIGRAINES penicillamine Allergy Unknown Unknown Verified 12/05/24 10:14 ciprofloxacin AdvReac Intermediate neuropathic Verified 12/05/24 10:14 pain lisinopril AdvReac Intermediate Cough Verified 12/05/24 10:14 nitrofurantoin AdvReac Mild GI side Verified 12/05/24 10:14 effects cefuroxime Allergy Intermediate wheezy Uncoded 12/02/24 14:39 cough/itch flagyl Allergy Unknown Unknown Uncoded 12/02/24 14:39 From KEFLEX Allergy Unknown RASH Uncoded 12/02/24 14:39 Metoprolol Tartrate Allergy Unknown Unknown Uncoded 12/02/24 14:39 Sulfacet-R Allergy Unknown Unknown Uncoded 12/02/24 14:39 Review of Systems Review of Systems: Constitutional : No Weight loss, No Fever, No Chills ENT/Mouth : No sore throat, No Rhinorrhea Eyes: No Swelling, No Redness Cardiovascular : No Chest Pain, No SOB, NoEdema Respiratory : No Cough, No Sputum, No Wheezing Gastrointestinal : Positive Nausea, Positive Vomiting, no Diarrhea, positive abdominal Pain, No Hematochezia, No Melena Genitourinary : No Dysuria, No Urinary Frequency, No Hematuria, No Urgency Musculoskeletal : No joint pain, No Myalgias, No Joint Swelling Skin : No Skin Lesions, No rash Neuro : No Weakness, No Numbness, No Dizziness, No Headache Psych : No Anxiety/Panic, No Depression All other systems reviewed and are negative. [facility] Past Medical History Attestation statement: The following information was validated with the patient. Source: old records reviewed Medical History Pulmonary nodule Chest pain URI (upper respiratory infection) HTN (hypertension) Cough Heart palpitations Constipation LLQ abdominal pain Anxiety Breast cancer screening Breast pain, left Elevated vitamin B12 level Neck muscle spasm Strain of neck muscle Low back pain Pubic ramus fracture Sore throat Skin tear of upper arm without complication Head injury, acute, without loss of consciousness Fall Dizziness Medication noncompliance due to cognitive impairment RLQ abdominal pain Sinusitis Flu syndrome Precordial chest pain Atypical chest pain Cold intolerance Former smoker Abnormal lung sounds Fever Bilateral calf pain Nausea Left lower quadrant abdominal pain Dysuria Fatigue Lower extremity weakness Aortic stenosis Obstipation Dark stools Lower abdominal pain Gastroenteritis Neck pain on right side Back pain Rhinitis Elevated BP without diagnosis of hypertension Non-rheumatic aortic stenosis Diverticulitis GERD (gastroesophageal reflux disease) Cat scratch Cat bite Epigastric discomfort Diarrhea Nausea Viral syndrome GERD (gastroesophageal reflux disease) Neuropathy Arthritis GERD (gastroesophageal reflux disease) HTN (hypertension) Irritable bowel Heart murmur Surgical History S/P TAVR (transcatheter aortic valve replacement) Hx of esophagogastroduodenoscopy Hx of colonoscopy History of tonsillectomy History of appendectomy Family History Family History Father No problems noted. Mother No problems noted. Social History Social History Household Members: Children Housing: House Are you a primary customer care specialist to a significant other at home: No Do you presently have visiting nurse or other home services: No Alcohol intake: former Patient Tobacco Use Status: Former Tobacco user Tobacco use type: Cigarette e-Cigarette/Vaping Use: Never Used Second Hand Smoke Exposure: Yes Advance Directives: Yes Advance Directives on File: Yes Advance Directives Date on File: 03/28/23 Do you have a plan to hurt others: No Plan service: No Current occupational status: retired Cognitive needs: No Hearing needs: No Vision needs: Yes (glasses) Physical Exam ED Vital Signs: Vital Signs - 24 hr 12/05/24 10:10 12/05/24 12:26 12/05/24 12:32 Temperature 97.7 F 97.7 F Pulse Rate 89 82 Respiratory Rate 20 16 16 Blood Pressure 148/90 H 151/87 H Pulse Oximetry 94 92 Oxygen Delivery Method Room Air Room Air 12/05/24 13:55 12/05/24 14:14 Temperature 97.6 F Pulse Rate 96 Respiratory Rate 16 Blood Pressure 170/82 H 170/82 H Pulse Oximetry 95 Oxygen Delivery Method Room Air BMI result Body Mass Index 28.2 Appearance: Alert. Oriented X3. No acute distress. Eyes: Pupils equal, round and reactive to light. ENT: Pharynx normal. Neck: Normal inspection. Neck supple. CVS: Normal heart rate and rhythm. Pulses normal. Respiratory: No respiratory distress. Breath sounds normal. Abdomen: Soft and nontender. Skin: Skin warm and dry. Normal skin color. Normal skin turgor. Extremities: No lower extremity edema. No calf ttp R wrist has cast on it - appearance normal and intact Neuro: Oriented X 3. No motor deficit. No sensory deficit. CN2-12 intact Course Course Course Narrative: This is a rapid medical exam performed by Vesna Stoner NP: Additional HPI, ROS, PE not included below will be deferred to primary provider. 12/05/24 10:12 Patient is an 84-year-old female presenting with complaint of dysuria, nausea, dry heaving. Plan: UA, labs, viral panel Reevaluation(s) Reevaluation #1: on DC still c/o pain L flank to LLQ CT scan ordered Medications Administered Discontinued Medications Generic Name Dose Route Start Last Admin Trade Name Freq PRN Reason Stop Dose Admin Acetaminophen 1,000 mg in 100 mls @ 400 mls/hr 12/05/24 11:27 12/05/24 12:53 Ofirmev IV 12/05/24 11:41 Infused ONCE ONE Infusion Lactated Ringer's 1,000 mls @ 999 mls/hr 12/05/24 11:27 12/05/24 12:53 Lr IV 12/05/24 12:27 Infused .Q1H1M ONE Infusion Losartan Potassium 25 mg 12/05/24 14:05 12/05/24 14:14 Losartan Potassium 25 Mg Tablet PO 12/05/24 14:06 25 mg ONCE ONE Administration Protocol Ondansetron HCl 4 mg 12/05/24 11:27 12/05/24 11:45 Ondansetron Hcl 4 Mg/2 Ml Vial IVPUSH 12/05/24 11:28 4 mg ONCE ONE Administration Medical Decision Making Medical Decision Making [facility] Narrative: 84 yo female wtih PMH of HTN, arthritis, s/p TAVR, UTIs, COPD, diverticulitis, recurrent LLQ pain, anemia, anxiety who presents with c/o LLQ pain and n/v this AM she has had this many times in past with multiple CT scans on exam her abdomen is benign and not tender, no mass felt. At this time basic labs, UA, supportive medications. Unless worsening pain and sig lab derangement will hold CT scan - doubt SBO, abscess, perforation, ischemia Differential Diagnosis Differential Diagnoses: The differential diagnosis associated with the presentation includes constipation, chronic pain, dehydration diverticulitis Admission/Observation Consideration of admission/observation: Escalation of care including admission/observation considered abdomen is benign, neg CRP, neg urine wbc and H/H at baseline would defer imaging given hx of same with negative imaging hold abx return precautions advised Lab Data [facility] Lab Attestation statement: I reviewed the patient's lab results. 12/05/24 11:05 12/05/24 11:05 Labs: Lab Results 12/05/24 12/05/24 Range/Units 11:05 13:13 WBC 4.4 L (4.8-10.8) X10*3/uL RBC 3.15 L (4.20-5.50) X10*6/uL Hgb 9.1 L (12.0-16.0) g/dl Hct 28.4 L (37.0-47.0) % MCV 90.2 (80.0-98.0) fL MCH 28.9 (27.0-33.0) pg MCHC 32.0 (31.0-35.0) g/dl RDW 14.3 (11.0-16.0) % Plt Count 153 L (160-400) X10*3/uL MPV 11.0 (9.4-12.3) fL Immature Gran % (Auto) 0.7 H (0.0-0.4) % Neut % (Auto) 78.8 H (45-73) % Lymph % (Auto) 10.7 L (20-40) % [place] % (Auto) 6.8 (2-11) % Eos % (Auto) 2.5 (0-4) % Baso % (Auto) 0.5 (0-2) % Lymph # (Auto) 0.5 L (1.2-4.9) X10*3/uL [place] # (Auto) 0.3 (0.1-1.2) X10*3/uL Eos # (Auto) 0.1 (0.0-0.4) X10*3/uL Baso # (Auto) 0.0 (0.0-0.2) X10*3/uL Abs Immat Gran (auto) 0.03 (0.00-0.03) X10*3/uL Absolute Neuts (auto) 3.5 (2.0-8.3) x10*3/uL Absolute Nucleated RBC 0.000 (0.0-0.012) X10*3/uL Nucleated RBC % (auto) 0.0 (0.0-0.2) /100WBC Sodium 139 (135-145) mmol/L Potassium 4.7 (3.3-5.1) mmol/L Chloride 104 (96-108) mmol/L Carbon Dioxide 29 (22-29) mmol/L Anion Gap 11 L (12-20) BUN 19 H (9-16) mg/dL Creatinine 0.73 (0.5-1.4) mg/dL Estim Creat Clear Calc 60.9 Estimated GFR > 60 Random Glucose 96 (60-115) mg/dL Calcium 9.7 (8.4-10.2) mg/dL Total Bilirubin 0.4 (0.0-1.0) mg/dL AST 20 (5-31) U/L ALT < 6 (0-31) U/L Alkaline Phosphatase 110 (39-117) U/L C-Reactive Protein 0.37 (< or = 0.50) mg/dL Total Protein 6.9 (6.5-8.0) g/dL Albumin 3.9 (3.5-5.0) g/dL Lipase 22 (8-78) U/L Urine Color Yellow Urine Appearance Clear Urine pH 6.0 (5.0-9.0) Ur Specific [place] 1.010 (1.005-1.025) Urine Protein Negative (Neg-Trace) mg/dL Urine Glucose (UA) Negative (Negative) mg/dL Urine Ketones Negative (Negative) mg/dL Urine Blood Negative (Negative) Urine Nitrite Negative (Negative) Ur Leukocyte Esterase Negative (Negative) Influenza Type A (PCR) NEGATIVE (Negative) Influenza Type B (PCR) NEGATIVE (Negative) RSV RNA Qual (PCR) NEGATIVE (Negative) SARS-CoV-2 RNA (RT-PCR) NEGATIVE (Negative) Independent Interpretation I performed an independent interpretation of an: EKG and CT Scan (constipation) Interpretation: Rate: 81 Rhythm: NSR with 1st degree AVB [place]: left Normal P waves. Normal ISABELLE. Normal QRS complex. ST T wave : inverted t waves V1, no FARAZ qTC: 464 prior studies: no acute ischemia The study has been interpreted contemporaneously by me. . Radiology Impression Discussion of test interpretation with radiology: I have reviewed the radiologist's reading. Independent Historian Clinical information obtained from an independent historian. History obtained from or confirmed by: Other (family) External Record Review External record reviewed: Inpatient record and Outpatient record Tests considered The following testing was considered but not selected: CT scan but has had numerous with neg imaging Prescription Management I considered prescription management with: Antibiotic and Other Discharge Plan Discharge Clinical Impression: Abdominal pain, Constipation Patient Disposition: Home, Self-Care Instructions: Constipation (ED), Abdominal Pain (ED) Additional Instructions: labs at baseline and reassuring neg inflammatory marker negative urine and negative viral panel at this time would watch closely - return for fevers, worsening pain, n/v again, change in stool or any other concerns. OVER THE COUNTER MEDICATIONS TAKE COLACE 100MG TWICE A DAY SENNA 8.6MG AT NIGHT FOR NEXT 5 DAYS MIRALAX ONCE CAPFUL DAILY Prescriptions: No Action losartan 25 mg tablet 25 mg PO DAILY 90 Days Qty: 90 1RF albuterol sulfate 90 mcg/actuation HFA aerosol inhaler 2 puff inhalation Q4-6H PRN (Reason: shortness of breath or wheezing) Qty: 1 2RF pantoprazole [Protonix] 40 mg tablet,delayed release (DR/EC) 40 mg PO DAILY Qty: 90 1RF clopidogrel 75 mg tablet 75 mg PO QAM Qty: 90 0RF ondansetron 4 mg tablet,disintegrating 4 mg PO Q6H PRN (Reason: nausea and vomiting) Qty: 14 0RF folic acid 400 mcg Tablet 0.4 mg PO DAILY acetaminophen [Tylenol] 325 mg capsule 325 mg PO Q4H PRN (Reason: pain) Qty: 30 0RF alprazolam 0.25 mg Tablet 0.25 mg PO BID fluticasone propionate 50 mcg/actuation spray,suspension intranasal fluticasone propion-salmeterol [Advair Diskus] 250-50 mcg/dose blister with device 1 inh inhalation BID Qty: 60 1RF mirabegron [Myrbetriq] 25 mg tablet extended release 24 hr 25 mg PO DAILY 90 Days Qty: 90 3RF cholecalciferol (vitamin D3) [Vitamin D3] 50 mcg (2,000 unit) tablet 50 mcg PO DAILY Qty: 90 3RF citalopram [Celexa] 20 mg tablet 20 mg PO DAILY Interventions: ED Discharge Assessment Last Done: 12/05/24 13:55 Print Language: Portuguese
[2024-12-05 11:14] LABS: MANUAL DIFF FLAG NO
[2024-12-05 11:15] LABS: Basophils Percent Auto 0.5 % (0-2); Eosinophils Absolute Auto 0.1 X10*3/uL (0.0-0.4); Eosinophils Percent Auto 2.5 % (0-4); Hematocrit 28.4 % (37.0-47.0); Hemoglobin 9.1 g/dl (12.0-16.0); Imm Gran Abs Auto 0.03 X10*3/uL (0.00-0.03); Imm Gran Pct Auto 0.7 % (0.0-0.4); Lymphocytes Absolute Auto 0.5 X10*3/uL (1.2-4.9); Lymphocytes Percent Auto 10.7 % (20-40); Mean Corpuscular Hemoglobin 28.9 pg (27.0-33.0); Mean Corpuscular Volume 90.2 fL (80.0-98.0); Monocytes Absolute Auto 0.3 X10*3/uL (0.1-1.2); Monocytes Percent Auto 6.8 % (2-11); Neutrophils Absolute Auto 3.5 x10*3/uL (2.0-8.3); Neutrophils Percent Auto 78.8 % (45-73); Platelet Count 153 X10*3/uL (160-400); Red Blood Count 3.15 X10*6/uL (4.20-5.50); Red Cell Distribution Width 14.3 % (11.0-16.0); White Blood Count 4.4 X10*3/uL (4.8-10.8)
[2024-12-05 11:35] LABS: Alanine Aminotransferase < 6 U/L (0-31); Albumin Level 3.9 g/dL (3.5-5.0); Alkaline Phosphatase 110 U/L (39-117); Anion Gap 11 (12-20); Aspartate Amino Transferase 20 U/L (5-31); Bilirubin Total 0.4 mg/dL (0.0-1.0); Blood Urea Nitrogen 19 mg/dL (9-16); Calcium 9.7 mg/dL (8.4-10.2); Carbon Dioxide 29 mmol/L (22-29); Chloride 104 mmol/L (96-108); Creatinine Clr Calc Pharmacy 60.9; Estimated Glomerular Filt Rate > 60; Glucose Random 96 mg/dL (60-115); Potassium 4.7 mmol/L (3.3-5.1); Sodium 139 mmol/L (135-145); Total Protein 6.9 g/dL (6.5-8.0)
[2024-12-05] MEDS: ondansetron HCL 4 MG/2 ML VIAL IVPUSH (11:45)
[2024-12-05] MEDS: Acetaminophen 1,000 MG/100 ML PIGGYBACK 400 MG IV (11:45)
[2024-12-05] MEDS: Lactated Ringers 1,000 ML 999 ML IV (11:45)
--- NOTE | 2024-12-05 11:53 | ECG_ITS ---
Test Reason : ABDOMINAL PAIN Blood Pressure : */* mmHG Vent. Rate : 81 BPM Atrial Rate : 81 BPM P-R Int : 260 ms QRS Dur : 88 ms QT Int : 400 ms P-R-T Axes : 56 -14 26 degrees QTcB Int : 464 ms Sinus rhythm with 1st degree A-V block Otherwise normal ECG When compared with ECG of 19-Jun-2024 11:19, MN interval has increased Minimal criteria for Anterior infarct are no longer Present Referred By: Darline Baer Electronically Signed By: WILBUR MCFARLAND
[2024-12-05 11:56] LABS: C Reactive Protein 0.37 mg/dL (< or = 0.50); Lipase 22 U/L (8-78)
[2024-12-05 12:01] LABS: Influenza A PCR NEGATIVE (Negative); Influenza B PCR NEGATIVE (Negative); Resp Syncy Virus RNA Qual PCR NEGATIVE (Negative); SARS COV2 PCR INHOUSE NEGATIVE (Negative)
--- OUTSIDE RECORDS SUMMARY | 2024-12-05 12:14 | XMS_ITS | Patient Health Record ---
[facility] Organization [facility] Address [address] [place] [address] Care Team Providers Care Bark Peeler Name Role Phone Huma Garcia Primary Care Provider Kwadwo Guillen Unavailable [phone] Julieth Rosa Unavailable [phone] Allergies Allergen (clinical drug ingredient) Drug/Non Drug [...] days Active Mucinex PRN Active CO-Q 10 [place]-3 Fish Oil Not-Taking Aspir-81 Not-Taking CeleXA Not-Taking [...] Problem Acquired hammer toe of left foot (7571193041044264 ) Other hammer toe(s) (acquired), left foot (M20.42) Active confirmed Problem Atherosclerosis of [place] arteries of the extremities (282230227923494) Atherosclerosis of [place] artery of both lower extremities, with unspecified presence of clinical manifestation (I70.203) Active confirmed Q7(A), Q8(2B), Q9(1B,2C) Problem Localized, primary osteoarthritis of the ankle and/or foot (595322623) Arthritis of joint of lesser toe, left [...] Ordered Date Performed Result Body Sit e 92975-UEKVFND NAIL, 6 OR MORE 04/16/2024 N/A 19775-HJMN SKIN LESIONS, OVER 4 04/16/2024 N/A 99022-JZGKLNT NAIL, 6 OR MORE 09/25/2024 N/A 30140-MDHC SKIN LESIONS, OVER 4 09/25/2024 N/A Encounters Encounter Location Date Provider Diagnosis [address] [address] 04/16/2024 Kwadwo Hendricks Skin ulcer of toe of left foot, limited to breakdown of skin L97.521 ; Tinea unguium B35.1 ; Atherosclerosis of [place] artery of both lower extremities, with unspecified presence of clinical manifestation I70.203 ; Pain in right toe(s) M79.674 and Pain in left toe(s) M79.675 [facility] [address] [address] 09/25/2024 Kwadwo Hendricks Atherosclerosis of n ative artery of both lower extremities, with unspecified presence of clinical manifestation I70.203 ; Tinea unguium B35.1 ; Pain in right toe(s) M79.674 and Pain in left toe(s) M79.[address] [address] 10/11/2024 Julieth Perica Ischemic ulcer of le ft foot, limited to breakdown of skin L97.521 ; Other hammer toe(s) (acquired), left foot M20.42 ; Pain in left toe(s) M79.675 ; Arthritis of joint of lesser toe, left M19.072 and Subluxation of metatarsophalangeal joint of toe, initial encounter S93.149A [address] [address] 02/13/2024 Kwadwo Hendricks [address] [address] 04/16/2024 Kwadwo Hendricks [address] [address] 10/07/2024 Kwadwo Hendricks [address] [address] 10/09/2024 Kwadwo Hendricks [address] [address] 10/10/2024 Kwadwo Hendricks Assessments Encounter Date Diagnosis (ICD Code) Assessment Notes Treatment Notes Treatment Clinical Notes Section Notes 04/16/2024 Tinea unguium (ICD-1 0 - B35.1) 04/16/2024 Skin ulcer of toe of left foot, limited to breakdown of skin (ICD-10 - L97.521) 09/25/2024 Atherosclerosis of [place] artery of both lower extremities, with unspecified presence of clinical manifestation (ICD-10 - I70.203) Q7(A), Q8(2B), Q9(1B,2C) 10/11/2024 Other hammer toe(s) (acquired), left foot (ICD-10 - M20.42) 10/11/2024 Ischemic ulcer of le ft foot, limited to breakdown of skin (ICD-10 - L97.521) 10/11/2024 Pain in left toe(s) (ICD-10 - M79.675) 09/25/2024 Tinea unguium (ICD-1 0 - B35.1) 04/16/2024 Atherosclerosis of [place] artery of both lower extremities, with unspecified [...] Name Order Date *Uric Acid, Serum 11/27/2020 96194-EAWSDVC NAIL, 6 OR MORE 03/23/2021 73685-DYUCWDL NAIL, 6 OR MORE 11/23/2021 47900-QFVQFYX NAIL, 6 OR MORE 09/08/2020 98007-RTUREXI NAIL, 6 OR MORE 09/20/2022 56058-PFDXPDZ NAIL, 6 OR MORE 01/06/2023 53083-NCOSRDX NAIL, 6 OR MORE 12/02/2011 66404-RPSGKUD NAIL, 6 OR MORE 04/06/2012 78159-MUACKHM NAIL, 6 OR MORE 07/10/2012 07764-HMDSYUE NAIL, 6 OR MORE 10/10/2014 25963-RSWHYPO NAIL, 6 OR MORE 03/24/2015 40110-ZPILKEG NAIL, 6 OR MORE 07/19/2016 17701-GENWHKZ NAIL, 6 OR MORE 01/10/2017 42241-DZAJVVH NAIL, 6 OR MORE 08/25/2017 88182-MNCXMNK NAIL, 6 OR MORE 11/24/2017 54077-YMGKCNK NAIL, 6 OR MORE 02/02/2018 44510-KGJBNXW NAIL, 6 OR MORE 08/07/2018 97202-IXILKIK NAIL, 6 OR MORE 04/16/2019 17016-TGKVQYG NAIL, 6 OR MORE 03/20/2020 30927-OYPFLKW NAIL, 6 OR MORE 06/12/2020 27621-DQCERPB NAIL, 6 OR MORE 06/13/2023 89450-FKEJZAU NAIL, 6 OR MORE 11/10/2023 99744-BYXHKHM NAIL, 6 OR MORE 04/16/2024 22294-XLKXJWX NAIL, 6 OR MORE 09/25/2024 31674-Nnscarun Plate 06/13/2023 77123-Jgczeqrq Plate 06/12/2020 10999-Mwymddcy Plate 03/20/2020 60385-Shdberka Plate 04/16/2019 91266-Rlxhgdcr Plate 09/20/2022 06101-Zpowferl Plate 09/08/2020 84119-Kgokjurh Plate 11/23/2021 71298-Lznmtqht Plate 03/23/2021 68765-Vpftigyl Plate Each Additional 47259-Esbcorro Plate Each Additional 83121- Debride <25 sq cm 12/31/2021 94444- Debride <25 sq cm 11/25/2022 65673- Debride <25 sq cm 03/24/2015 63763- Debride <25 sq cm 11/10/2023 53476- Debride <25 sq cm 02/10/2023 85426-BTXJ SKIN LESIONS, OVER 4 04/16/20 24 03477-LZJT SKIN LESIONS, OVER 4 09/25/19 25 15365-BPWH SKIN LESIONS, OVER 4 06/13/20 23 16051-ZXQI SKIN LESIONS, OVER 4 11/10/19 24 58026-SNDD SKIN LESIONS, OVER 4 01/07/20 23 21959-NFEJ SKIN LESIONS, OVER 4 09/20/19 23 27575-DTJM SKIN LESIONS, 2 TO 4 11/24/19 22 04189, R9898-QVJIT/INJECT, JOINT/BURSA 0 09/08/2020 46720 - Tenotomy, open flexor 12/01/2017 Next Appt Details Provider Name:Kwadwo Hendricks , 12/27/2024 12:00:00 PM, [address] [facility], [place], [address], Insurance Providers Payer Name Payer Address Payer Phone Subscriber Number Group Number Insured Name Patient Relationship to Insured Coverage Start Date Coverage End Date Medicare National [employer]t [employer] [address] [place] [address] [id number] KaleJessica gaspare Self - patient is the insured [employer] [address] [place] [address] [id number] Jessica Henleye Self - patient is the insured Medical (General) History Medical History History ICD Code back, hip, knee pain transfusions reflux measles chicken pox Anxiety disorder Peripheral neuropathy Fractured Pelvis, Left - 06/2023 Surgical History Surgery Date(Month/Year) tonsillectomy appendectomy intestinal blockage 11/2013 [facility] Chest pain and Dizziness [place] [facility] stomach [place] - Gerd /IBS due to anxiety 01/2021,02/2021 Patient admitted to [facility] x 5 days; diverticulitis 12/2014
--- OUTSIDE RECORDS SUMMARY | 2024-12-05 12:14 | XMS_ITS ---
Author Organization [facility] Address [address] [place] [address] Care Team Providers Care Sanitary Engineering Teacher Name Role Phone Nick Gomez Primary Care Provider Unavailab Anatoliy Montgomery [phone] REASON FOR VISIT retching Encounters Encounter Location Date Provider Diagnosis [facility] [address] [place] [address] 03/06/2024 Anatoliy Escobar Plan Of Treatment No Information Progress Notes * SELINA KNIGHTOB:1940 ( 84 yo F)Acc No.[id number]:03/06/2024 Progress Notes Patient:?VIKAS KNIGHT Provider:?Anatoliy Escobar MD :1940???Age:83 Y???Sex:Female D ate:03/06/2024 Address:[address] [place], [place] [id number] Pcp:Nick Gomez Subjective: * Chief Complaints: * [...] Date:? 024 Generated for José Luis bryan/Elizabeth/eTransmitting on:?12/05/2024 12:14 PM EDT
--- OUTSIDE RECORDS SUMMARY | 2024-12-05 12:14 | XMS_ITS | Data Portability ---
Author Organization [facility], Home Service Address [address] [place] [address] Assessment No assessment recorded. Plan of Treatment Reminders Order Date Submit Date Provider Last Modified By Organization Details Last Modified Time Details Appointments None recorded. Lab BMP, blood [address] Internal [facility], [address] [place] [address], [facility], [place], [address], 9 07:42:19 lipid panel, blood [address] [facility], [address] [place] [address], [facility] D, [place], [address], 9 07:42:20 Referral None recorded. Procedures None recorded. Surgeries None recorded. Imaging None recorded. Medication Orders Cipro 500 mg tablet 2018 019 [id number], [address], [place], [id number], 9 11:53:38 Zithromax Z-Rajesh 250 mg tablet 2018 019 [facility] #97181, [address], [place], [id number], 9 11:53:23 metoprolol succinate ER 25 mg tablet,exte nded release 24 hr 2018 019 [facility], [address], [place], [id number], 9 11:15:40 Patient Targets Encounter Date Encounter Id Patient Goals Patient Target Last Modified By Organization Details Last Modified Time Call therapist to schedule counseling marilynn Not available 09/26/2018 11:54:07 Patient Instructions Encounter Date Encounter Id Patient Instructions Last Modified By Organization Details Last Modified Time 09/21/2018 [id number] Relaxation, reconsider escitalopram- will review at f/u next week to avoid dual med starting together marilynn Not available 09/21/2018 15:27:44 09/26/2018 [id number] pulse oximetry* marilynn Not available 09/26/2018 11:54:08 10/08/2018 [id number] Acute Sinusitis: Care Instructions marilynn Not available 10/08/2018 11:28:17 pulse oximetry* marilynn Not available 10/08/2018 11:28:17 12/04/2018 [id number] pulse oximetry* marilynn Not available 12/04/2018 12:22:51 Reason for Referral None Reported. Results Created Date Observation Date Name Description Value Unit Range Abnormal Flag Note LastModifiedBy Organization Detail LastModifiedTime 09/26/19 19 09/26/2018 pulse oxime try* Result 96 Not Available [facility] [address], [address], 09/26/2018 11:15:30 10/08/19 19 10/08/2018 pulse oxime try* Result 97 Not Available [facility] [address], [address], 10/08/2018 11:18:00 12/05/19 19 12/04/2018 pulse oxime try* Result 97 Not Available [facility] [address], [address], 12/04/2018 11:55:20 Result Notes None recorded. Problems Name Problem SNOMED Code Status Onset Date Resolution Date Notes Provider Name and Address Organization Details Recorded Time Abdominal aortic aneurysm 525114880 Active 2017 Samina Lama NP, [address] [place], [address], [facility] 8 13:58:39 Diverticul itis 937203785 Active 2017 Tainaronnell Hanson [facility] 8 16:58:14 Chronic obstructiv e pulmonary disease 79566040 Active 2017 [facility] 8 16:58:22 Aortic valve stenosis 79796454 Active 2017 [facility] 8 16:58:36 Anxiety 64856052 [facility] 8 16:58:45 Cystocele 028589804 Active 2017 [facility] 8 16:58:58 Problem Notes None recorded. Medical Equipment None Reported. Allergies Allergen ID Allergen Name Allergen Category Reaction Reaction Severity Criticality Documentation Date Start Date Code Code System Note Provider Name and Address Organization Details Recorded Time 1547 Substance with sulfonami de structure and antibacte rial mechanism of action (substanc e) medicatio n Not available Not available Not available 02/06/2018 26179 8003 SNOMED Tainaronnell Hanson [facility] 8 16:57:43 1548 Keflex medicatio n Not available Not available Not available 02/06/2018 7 RxNorm Tainaronnell Hanson [facility] 8 16:57:55 2328 Flagyl medicatio n other moderate Not available 05/29/201855282 6 RxNorm Tainaronnell Hanson [facility] 8 11:44:55 2717 metoprolo l Not available chest pain Not available Not available 09/21/2018 6918 RxNorm Tainaronnell Hanson [facility] 9 16:31:23 Medications Name Sig Start [...] % 128 mm[Hg] 84 mm[Hg] Taina Hanson [facility] 9 14:32:26 Date Recorded Body height Heart rate Oxygen saturation Oxygen saturation in Arterial blood by Pulse oximetry Systolic blood pressure Diastolic blood pressure Provider Name and Address Organization Details Last Updated DateTime 9 168.91 cm 90 /min 96 % 96 % 124 mm[Hg] 80 mm[Hg] Eunice Molina [facility] 9 11:17:24 Date Recorded Body height Oxygen saturation Oxygen saturation in Arterial blood by Pulse oximetry Heart rate Body temperature Systolic blood pressure Diastolic blood pressure Provider Name and Address Organization Details Last Updated DateTime 9 168.91 cm 97 % 97 % 112 /min 98.2 [degF] 142 mm[Hg] 86 mm[Hg] Tainaronnell Hanson [facility] 9 11:17:37 Date Recorded Heart rate Provider Name an d Address Organization Details Last Updated DateTime 10/08/2018 84 /min Samina Lama NP, [address] [place], [address], [facility] 10/08/2018 11:28:37 Date Recorded Body height Heart rate Oxygen saturation Oxygen saturation in Arterial blood by Pulse oximetry Systolic blood pressure Diastolic blood pressure Provider Name and Address Organization Details Last Updated DateTime 9 168.91 cm 105 /min 98 % 98 % 140 mm[Hg] 80 mm[Hg] [facility] 9 11:45:01 Date Recorded Heart rate Provider Name an d Address Organization Details Last Updated DateTime 10/19/2018 80 /min Samina Lama NP, [address] [place], [address], [facility] 10/19/2018 12:04:58 Date Recorded Body height Body mass index (BMI) Body weight Oxygen saturation Oxygen saturation in Arterial blood by Pulse oximetry Heart rate Systolic blood pressure Diastolic blood pressure Provider Name and Address Organization Details Last Updated DateTime 9 168.91 cm 31.1 kg/m2 64163.6 7 g 97 % 97 % 97 /min 120 mm[Hg] 90 mm[Hg] Dahiana Ha [facility] 9 11:56:24 Social History Question Answer Notes LastModified by Organizat ion Details LastModified Time Tobacco Smoking Status Former Smoker Not Available [facility] 07/07/2020 03:36:24 What Was The Date Of Your Most Recent Tobacco Screening? 12/04/2018 [id number] Information not available 07/07/2020 Sex: Unknown Functional Status None recorded. Mental Status None recorded. Family History Nothing Reported. Medical History Condition Response Coronary Artery Disease N Other N Gout N Blood Diseases N Kidney Stones N Breast Cancer N Blood Transfusion N Lung Disease N Depression N COPD [...] virus, quadrivalent, preservative 8 completed Eunice damon [facility] 09/26/2018 11:16:26 Past Encounters Encounter ID Performer Location Encounter Start Date Encounter Closed Date Diagnosis/Indication Diagnosis SNOMED-CT Code Diagnosis ICD10 Code Diagnosis Note [id number] Samina Lama NP, S [facility] [address] [facility],[place] [address] 02/07/2018 11:02:27 02/07/2018 16:46:02 Anxiety 74208810 F41.9 Nail changes 820303426 L 60.9 Abdominal aortic aneurysm 262947741 I71.4 CT 11/2017, no changes 2016, 2.85 cm Aortic david nosis, non-rheumatic 519454600 I35.0 stable Gastroesop hageal reflux disease 054880812 K21.9 d/c yajaira mints, call if persists Insomnia 746104209 G47.0 0 review proper sleep hygiene be more active during day avoid naps [id number] Samina Lama NP, S [facility] [address] [facility],[place] [address] 03/16/2018 11:29:23 03/20/2018 08:12:01 Dehydration 43106320 E86.0 Gastroenteritis 48001340 K52.9 Aortic valve stenosis 60 591453 I35.0 stable, follow [id number] Samina Lama NP, S [facility] [address] [facility],[place] [address] 05/16/2018 13:23:14 05/16/2018 14:06:44 Anxiety 35885135 F41.9 BID lorazepam helps Aortic valve stenosis 60 349143 I35.0 stable, echo 05/31/2017 Active or passive immunization 061711683 Z23 Abdominal aortic aneurysm 552361617 I71.4 CT 11/2017, no changes 2016, 2.85 cm Chronic ob structive pulmonary disease 31636141 J44.9 Non smoker X years, asymptomat ic Diverticular disease 397 591708 K57.90 no recent flare [id number] Samina Lama NP, [facility] [address] [facility],[place] [address] 05/29/2018 11:40:58 05/29/2018 16:52:51 Aortic valve stenosis 79128442 I35.0 stable, echo 05/31/2017 Anxiety 51493570 F41.9 BID lorazepam helps, discussed current fears re: Constipation 55494310 K5 9.00 [id number] Samina Lama NP, S [facility] [address] [facility],[place] [address] 08/14/2018 11:20:27 08/14/2018 17:00:16 Anxiety 51336027 F41.9 BID lorazepam helps, discussed current fears Aortic valve stenosis 60 892355 I35.0 stable, echo 05/31/2017 Diverticulitis 446214467 K57.92 Increased frequency of urination 670838446 R35.0 [id number] Samina Lama NP, S [facility] [address] [facility],[place] [address] 08/20/2018 11:12:33 08/20/2018 12:20:46 Anxiety 82194279 F41.9 BID alprazolam helps, discussed current fears Diverticulitis 069776155 K57.92 Aortic valve stenosis 60 953858 I35.0 stable, echo 05/31/2017 Family problems 82912897 4 Z63.79 Suggest therapy, names provided. Pt agrees [id number] Samina Lama NP, S [facility] [address] [facility],[place] [address] 09/12/2018 10:19:31 09/12/2018 20:18:16 Abdominal aortic aneurysm 211574922 I71.4 CT 11/2017, no changes 2016, 2.85 cm Chronic ob structive pulmonary disease 50141158 J44.9 Non smoker X years, asymptomat ic Anxiety 24041263 F41.9 BID alprazolam helps, discussed current fears Aortic valve stenosis 60 282899 I35.0 stable, echo 05/31/2017 [id number] Samina Lama NP, [facility] [address] [facility],[place] [address] 09/21/2018 14:26:58 09/25/2018 11:17:00 Anxiety 90453188 F41.9 discussed current fears again, see below Aortic valve stenosis 60 258798 I35.0 [id number] Samina Lama NP, S [facility] [address] [facility],[place] [address] 09/26/2018 11:12:05 09/26/2018 13:02:53 Hypertensive disorder 60826331 I10 Chronic ob structive pulmonary disease 58608808 J44.9 Non smoker X years, asymptomat ic Anxiety 49929080 F41.9 discussed current fears again, see below Aortic valve stenosis 60 390914 I35[place] [id number] Samina Lama NP, [facility] [address] [facility] [address] 10/08/2018 11:12:38 10/08/2018 14:35:10 Cough 82832926 R05 Acute sinusitis 26070752 J01.90 Anxiety 85819869 F41.9 revisited [id number] Samina Lama NP, S [facility] [address] [facility] [address] 10/19/2018 11:41:00 10/19/2018 12:37:34 Diverticulitis 219072249 K57.92 Intolerant Flagyl Anxiety 59014155 F41.9 revisited Aortic valve stenosis 60 518051 I35.0 asymptomat ic Abdominal aortic aneurysm 734580041 I71.4 CT 11/2017, no changes 2016, 2.85 cm Chronic ob structive pulmonary disease 59742493 J44.9 Non smoker [place], [place] [id number] Samina Lama NP, S [facility] [address] [facility] [address] 12/04/2018 11:49:58 12/04/2018 16:03:42 Chronic obstructive pulmonary disease 02595758 J44.9 Non smoker X years, asymptomat ic Anxiety 03951494 F41.9 revisited Aortic valve stenosis 60 994078 I35.0 asymptomat ic Health Concerns Section Related Observation LastModified by Organization Detai ls LastModified Time None Recorded Concern Status LastModified by Organization Details LastModified Time None Recorded Advance Directives Directive None Recorded Payers Encounter Date Sequence Insurance Name Policy Number Policy Berry Covered Member ID Berry Member ID Guarantor Name 09/21/2018 2 [facility] [id number] Bella Knappel [id number] Bella Hallie 09/21/2018 1 MEDICARE [place]: [employer] Bella Henley [id number] Bella Henley 09/26/2018 2 [facility] [id number] Bella Keith Kale [id number] Bella Henley 09/26/2018 1 MEDICARE B-[place]: [employer] Bella Henley [id number] Bella Henley 10/08/2018 2 [facility] [id number] Bella Henley [id number] Bella Henley 10/08/2018 1 MEDICARE B-[place]: [facility] Bella Henley [id number] Bella Henley 10/19/2018 2 [facility] [id number] Bella Henley [id number] Bella Henley 10/19/2018 1 MEDICARE B-[place]: [facility] Bella Henley [id number] Bella Henley 12/04/2018 2 [facility] [id number] Bella Henley [id number] eBlla Henley 12/04/2018 1 MEDICARE B-[place]: [facility] Bella Henley [id number] Bella Henley Notes Date Note Type Note Provider Name a nd Address Organization Details Recorded Time 09/21/2018 text/html Here with concer ns BP had panic attack this am, ambulance was called Checked BP after pts episode was 158/101 Did not start escitalopram prescribed last week , under a great deal of stress Samina Lama NP, [address] [place], [address], [facility] 09/21/2018 15:27:56 09/26/2018 text/html see [...] complete ADL's Samina Lama NP, S [address] [place], [address], [facility] 09/26/2018 11:54:50 10/08/2018 text/html Same [...] family situation Samina Lama NP, S [address] [place], [address], [facility] 10/08/2018 11:49:45 10/19/2018 text/html Yesterday felt o k last night 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 this a.m. also increased voiding w/no dysuria no N/V/D/C, no BRBPR or hematuria Samina Lama NP, S [address] [place], [address], [facility] 10/19/2018 12:09:27 12/04/2018 text/html Very anxious re: husbands cognitive decline/getting worn out In therapy w/Peter Dopp Son also recent renal cancer, surgery went well.-but pt. gets worked up over everything pt recently started back on allergy shots some heartburn and post nasal drip Samina Lama NP, S [address] [facility], [place], [address], [facility] 12/04/2018 12:23:16 OBGyn Episode No OBEpisode recorded.
--- OUTSIDE RECORDS SUMMARY | 2024-12-05 12:14 | XMS_ITS | Clinical Summary ---
Author Organization [facility] it Address [address] [place] [address] Care Team Providers Care Radar Operator Name Role Phone Unavailable Primary Care [...] Documents on File Type Date Recorded Patient Security Coordinator Expl anation Health Care Decision (hx) 09/07/2023 HE ALTH CARE PROXY Health Care Decision (hx) 03/03/2023 HE ALTH CARE PROXY
--- OUTSIDE RECORDS SUMMARY | 2024-12-05 12:15 | XMS_ITS ---
Author Organization [facility] Address [address] [place] [address] Care Team Providers Care Blueprint Cutter Name Role Phone Huma Garcia Primary Care Provider Kwadwo Guillen Unavailable [phone] Medications Medication SIG (Take, Route, Frequency, Duration) [...] CeleXA Not-Taking Mucinex PRN Active CO-Q 10 [place]-3 Fish Oil Not-Taking ALPRAZolam 20 mg 1x [...] Negative Encounters Encounter Location Date Provider Diagnosis [facility] [place] [address] [place] [address] 10/10/2024 Kwawdo Hendricks Plan Of Treatment Next Appt Details Provider Name:Kwadwo Hendricks , 12/27/2024 12:00:00 PM, [address] [place], [address], Progress Notes * Bella HENLEY GDOB:1940 (84 yo F)Acc No.[id number]:10/10/2024 Progress Note Patient:?Bella HENLEY Provider:?Kwadwo Hendricks DPM :1940???Age:83 Y???Sex:Female D ate:10/10/2024 Address:[address] [place], [place] [address] Pcp:Huma Garcia Subjective: * Chief Complaints: * [...] Notes to Pharmacist: PRN, Not-Taking/PRN CO-Q 10 [place]-3 Fish Oil , Not-Taking/PRN Aspir- 81 , [...] DPM Date:?2024 Generated for José Luis bryan/Elizabeth/Marquise on:?12/05/2024 12:15 PM EDT
--- OUTSIDE RECORDS SUMMARY | 2024-12-05 12:15 | XMS_ITS ---
Author Organization [facility] Address [address] [place] [address] Care Team Providers Care Sourcing Specialist Name Role Phone Nick Gomez Primary Care Provider Unavailab Anatoliy Montgomery [phone] REASON FOR VISIT constipation Encounters Encounter Location Date Provider Diagnosis [facility] [address] [place] [address] 03/06/2024 Anatoliy Escobar Plan Of Treatment No Information Progress Notes * SELINA KNIGHTOB:1940 ( 84 yo F)Acc No.[id number]:03/06/2024 Progress Notes Patient:?VIKAS KNIGHT Provider:?Anatoliy Escobar MD :1940???Age:83 Y???Sex:Female D ate:03/06/2024 Address:[address] [place], [place] [address] Pcp:Nick Gomez Subjective: * Chief Complaints: * [...] Date:? 024 Generated for José Luis bryan/Elizabeth/eTernestosmitting on:?12/05/2024 12:15 PM EDT
--- OUTSIDE RECORDS SUMMARY | 2024-12-05 12:15 | XMS_ITS ---
Author Organization [facility] Address [address] [place] [address] Care Team Providers Care Civil Engineering Technician Name Role Phone JoseLisaregina Primary Care Provider UnavailKwadwo Redman Unavailable [phone] Julieth Rosa Unavailable [phone] Allergies Allergen (clinical drug ingredient) Drug/Non Drug [...] Not-Taki ng Mucinex PRN Active CO-Q 10 [place]-3 Fish Oil Not-Taking Aspir-81 Not-Taking CeleXA Not-Taking [...] Problem Acquired hammer toe of left foot (7563250266551102 ) Other hammer toe(s) (acquired), left foot (M20.42) Active confirmed Problem Localized, primary osteoarthritis of the ankle and/or foot (159099429) Arthritis of joint of lesser toe, left (M19.072) Active confirmed Vital Signs Height 5 ft 6 in in 10/11/2024 Weight 163 lbs 10/11/2024 BMI 26.31 kg/m2 10/11/2024 Blood pressure systolic 127 mm Hg 10/11/19 25 Blood pressure diastolic 74 mm Hg 025 Encounters Encounter Location Date Provider Diagnosis [facility] [place] [address] [place] [address] 10/11/2024 Julieth Rosa Ischemic ulcer of le [...] Provider Name:Kwadwo Hendricks , 12/27/2024 12:00:00 PM, [address] [place] [address], [address], Procedure Notes * Category Sub-Category Detail Notes [...] of the wound post debridement is stable (27833), The patient was instructed on importance of [...] * EUGENE Bella GDOB:1940 (83 yo F)Acc No.[id number]:10/11/2024 Progress Note Patient:?Bella HENLYE Provider:?Julieth Rosa DPM :1940???Age:83 Y???Sex:Female D ate:10/11/2024 Address:[address] [place], [place] [address] Pcp:Huma Garcia Subjective: * Chief Complaints: * [...] * Hospitalization/Major Diagno stic Procedure:?Patient admitted to [facility] x 5 days; diverticulitis 12[facility] stomach pains - 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 ?Marital status: single, . 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 * Medications:?TakingVitamin D 3 Mirtazapine Myrbetriq [...] , Notes to Pharmacist: PRNNot-Taking/PRNTrileptal CO-Q 10 [place]-3 Fish Oil Aspir-81 CeleXA Valsartan 40 MG [...] with the patientNot-Taking/PRN Trileptal Not-Taking/PRN CO-Q 10 [place]-3 Fish Oil Not-Taking/PRN Aspir-81 Not-Taking/PRN CeleXA Not-Taking/PRN [...] of the wound post debridement is stable (53746), The patient was instructed on importance of [...] till condition is completely healed.? * Procedure Codes:?52766 ACTIV E WOUND CARE/20 CM OR <, [...] DPM Date:?03/2025 Generated for José Luis bryan/Elizabeth/eTransmitting on:?12/05/2024 12:14 PM EDT History and Physical Notes * [...]
--- OUTSIDE RECORDS SUMMARY | 2024-12-05 12:15 | XMS_ITS ---
Author Organization [facility] Address [address] [place] [address] Care Team Providers Care Bowling Ball Engraver Name Role Phone Huma Garcia Primary Care Provider Kwadwo Guillen Unavailable [phone] REASON FOR VISIT same day rs 10/10/24 Encounters Encounter Location Date Provider Diagnosis [address] [address] 10/10/2024 Kwadwo Hendricks Plan Of Treatment Next Appt Details Provider Name:Kwadwo Hendricks , 12/27/2024 12:00:00 PM, [address] [place] [address], [address], Progress Notes * Bella HENLEY GDOB:1940 (83 yo F)Acc No.[id number]:10/10/2024 Patient:?Bella HENLEY :1940???Age:83 Y???Sex:Female Address:[address] [place] [address], * true * Date:? Generated for Printi ng/Fadanitag/eTransmitting on:?12/05/2024 12:14 PM EDT
--- OUTSIDE RECORDS SUMMARY | 2024-12-05 12:15 | XMS_ITS ---
Author Organization [facility] Address [address] [place] [address] Care Team Providers Care Insole Coverer Name Role Phone Nick Gomez Primary Care Provider Unavailab Anatoliy Montgomery [phone] REASON FOR VISIT acid reflux Encounters Encounter Location Date Provider Diagnosis [facility] [address] [place] [address] 06/14/2024 Anatoliy Escobar Plan Of Treatment No Information Progress Notes * SELINA KNIGHTOB:1940 ( 83 yo F)Acc No.[id number]:06/14/2024 Patient:?VIKAS KNIGHT :1940???Age:83 Y???Sex:Female Address:[address] [place] [address] * true * Date:? Generated for José Luis bryan/Elizabeth/eTransmitting on:?12/05/2024 12:15 PM EDT
[2024-12-05 12:26] VITALS: RESP 16
[2024-12-05 12:32] VITALS: BP 151/87; PULSE 82; RESP 16; TEMP 36.5; O2SAT 92
[2024-12-05 13:21] LABS: Appearance Urine Clear; Color Urine Yellow; Glucose Urine UA Negative (Negative); Leukocyte Esterase Urine Negative (Negative); Nitrite Urine Negative (Negative); Urine Blood Negative (Negative); Urine Ketones Negative (Negative); Urine Protein Negative (Neg-Trace)
[2024-12-05 13:55] VITALS: BP 170/82; PULSE 96; RESP 16; TEMP 36.4; O2SAT 95
[2024-12-05 14:14] VITALS: BP 170/82
[2024-12-05] MEDS: Losartan Potassium 25 MG TABLET PO (14:14)
== END 2024-12-05 16:29 | disposition home or self-care (01) ==
PROVIDERS: Registered Nurse Emergency; Emergency Provider Emergency Medicine; PCP Internal Medicine
DX: K59.00 Constipation, unspecified (principal); R10.32 Left lower quadrant pain; I44.0 Atrioventricular block, first degree; Z03.818 Encounter for observation for suspected exposure to other biological agents ruled out; R11.2 Nausea with vomiting, unspecified
CPT/HCPCS: 0241U; 74176; 80053; 81003; 83690; 85025; 86140; 93005; 96361; 96374; 96375; 99284; J0131; J2405; J7120

== ENCOUNTER → 2024-12-05 11:53 | Outpatient (BNV) | payer MEDICARE, OTHER, SELFPAY | PROVIDERS: Emergency Provider Emergency Medicine; PCP Internal Medicine; Visit Provider Internal Medicine | DX: I44.0 Atrioventricular block, first degree (principal) | CPT/HCPCS: 93010 ==

== ENCOUNTER → 2024-12-05 14:07 | Outpatient (BNV) | payer MEDICARE, OTHER, SELFPAY | PROVIDERS: Emergency Provider Emergency Medicine; PCP Internal Medicine; Visit Provider Radiology Diagnostic Radiology | DX: R10.32 Left lower quadrant pain (principal) | CPT/HCPCS: 74176 ==

== ENCOUNTER 2024-12-16 11:46 | Outpatient (AMB) | payer MEDICARE, OTHER, SELFPAY ==
[2024-12-16 11:47] VITALS: BP 112/64; PULSE 57; TEMP 36.3; O2SAT 95; BMI 28.1
--- NOTE | 2024-12-16 11:47 | A.OFFPC_ITS ---
Vital Signs 12/16/24 11:47 Height 5 ft 6 in Weight 174 lb 2 oz BMI 28.1 BP 112/64 Blood Pressure Location Lt brachial Position Sitting Pulse 57 Pulse Source Pulse Oximeter Temp 97.3 F Temp Source Temporal Artery Scan Pulse Oximetry (%) 95 Oxygen Delivery Method Room Air Intake Visit Reasons: s/p TAVR Accompanied by: Son Allergies buspirone Allergy (Intermediate, Verified 12/16/24 11:52) Rash Sulfa (Sulfonamide Antibiotics) Allergy (Intermediate, Verified 12/16/24 11:52) RASH cefuroxime Allergy (Unknown, Verified 12/16/24 11:52) Unknown garlic [GARLIC] Allergy (Unknown, Verified 12/16/24 11:52) PER H&P metronidazole [From FLAGYL] Allergy (Unknown, Verified 12/16/24 11:52) OCULAR MIGRAINES penicillamine Allergy (Unknown, Verified 12/16/24 11:52) Unknown ciprofloxacin Adverse Reaction (Intermediate, Verified 12/16/24 11:52) neuropathic pain lisinopril Adverse Reaction (Intermediate, Verified 12/16/24 11:52) Cough nitrofurantoin Adverse Reaction (Mild, Verified 12/16/24 11:52) GI side effects cefuroxime Allergy (Intermediate, Uncoded 12/16/24 11:52) wheezy cough/itch flagyl Allergy (Unknown, Uncoded 12/16/24 11:52) Unknown From KEFLEX Allergy (Unknown, Uncoded 12/16/24 11:52) RASH Metoprolol Tartrate Allergy (Unknown, Uncoded 12/16/24 11:52) Unknown Sulfacet-R Allergy (Unknown, Uncoded 12/16/24 11:52) Unknown Medication List - Last Reconciled 12/16/24 by Huma Garcia MD acetaminophen (Tylenol) 325 mg PO Q4H PRN albuterol sulfate 90 mcg/actuation 2 puffs inhalation Q4-6H PRN alprazolam 0.25 mg PO BID cholecalciferol (vitamin D3) (Vitamin D3) 50 mcg PO DAILY citalopram (Celexa) 20 mg PO DAILY clopidogrel 75 mg PO QAM fluticasone propion-salmeterol 250-50 mcg/dose (Advair Diskus) 1 inh inhalation BID fluticasone propionate 50 mcg/actuation sprays intranasal folic acid 0.4 mg PO DAILY losartan 25 mg PO DAILY 90 days mirabegron ER (Myrbetriq) 25 mg PO DAILY 90 days ondansetron 4 mg PO Q6H PRN pantoprazole (Protonix) 40 mg PO DAILY Tobacco use date assessed: 11/01/24 Fall risk assessment: 1 Fall in past year Last assessed Fall Risk: 12/16/24 Dental Screening Dental Screen Date: 09/12/24 Did you have a dental visit in the last 12 months?: No Did you have a dental problem in the last 6 months where you did not have access to dental care?: No Was dental information given to patient?: Patient declined [facility] Medical History Pulmonary nodule Chest pain URI (upper respiratory infection) HTN (hypertension) Cough Heart palpitations Constipation LLQ abdominal pain Anxiety Breast cancer screening Breast pain, left Elevated vitamin B12 level Neck muscle spasm Strain of neck muscle Low back pain Pubic ramus fracture Sore throat Skin tear of upper arm without complication Head injury, acute, without loss of consciousness Fall Dizziness Medication noncompliance due to cognitive impairment RLQ abdominal pain Sinusitis Flu syndrome Precordial chest pain Atypical chest pain Cold intolerance Former smoker Abnormal lung sounds Fever Bilateral calf pain Nausea Left lower quadrant abdominal pain Dysuria Fatigue Lower extremity weakness Aortic stenosis Obstipation Dark stools Lower abdominal pain Gastroenteritis Neck pain on right side Back pain Rhinitis Elevated BP without diagnosis of hypertension Non-rheumatic aortic stenosis Diverticulitis GERD (gastroesophageal reflux disease) Cat scratch Cat bite Epigastric discomfort Diarrhea Nausea Viral syndrome GERD (gastroesophageal reflux disease) Neuropathy Arthritis GERD (gastroesophageal reflux disease) HTN (hypertension) Irritable bowel Heart murmur Surgical History S/P TAVR (transcatheter aortic valve replacement) Hx of esophagogastroduodenoscopy Hx of colonoscopy History of tonsillectomy History of appendectomy Family History Father No problems noted. Mother No problems noted. Social History Household Members: Children Housing: House Are you a primary medicare interviewer to a significant other at home: No Do you presently have visiting nurse or other home services: No Alcohol intake: former Patient Tobacco Use Status: Former Tobacco user Tobacco use type: Cigarette e-Cigarette/Vaping Use: Never Used Second Hand Smoke Exposure: Yes Advance Directives Date on File: 03/28/23 service: No Current occupational status: retired Cognitive needs: No Hearing needs: No Vision needs: Yes (glasses) Questionnaire PHQ-9 Over the last 2 weeks, how often have you been bothered by any of the following problems? 1. Little interest or pleasure in doing things: not at all 2. Feeling down, depressed, or hopeless: several days 3. Trouble falling or staying asleep, or sleeping too much: not at all 4. Feeling tired or having little energy: not at all 5. Poor appetite or overeating: not at all 6. Feeling bad about yourself - or that you are a failure or have let yourself or your family down: not at all 7. Trouble concentrating on things, such as reading the newspaper or watching television: not at all 8. Moving or speaking so slowly that other people could have noticed. Or the opposite - being so fidgety or restless that you have been moving around a lot more than usual: not at all 9. Thoughts that you would be better off or of hurting yourself in some way: not at all Total score: 1 Depression Screening Interpretation: Negative Depression Screening Done: Yes Source: Developed by Drs. Anatoliy Gavin, Peyton Hunt, Austyn Weber and colleagues, with an educational kentrell from [employer]. Thrive Questionnaire Date Thrive assessed: 09/12/24 I am a: Patient What is your living situation today?: I have a steady place to live Within the past 12 months, did the food you bought not last and you didn't have the money to get more?: Never true Within the past 12 months, did you worry whether your food would run out before you got money to buy more?: Never true Do you have trouble paying for medicines?: No Do you have trouble getting transportation to medical appointments?: No Do you have trouble paying your heating and electricity bill?: No Do you have trouble taking care of your child, family member or friend?: No Do you have trouble with day-to-day activities such as bathing, preparing meals, shopping, managing finances, etc.?: No Are you currently unemployed and looking for a job?: No Are you interested in more education?: No Currently or been in a relationship where the following occur: No concerns reported THRIVE Score: 0 AUDIT C Alcohol Use Questionnaire (AUDIT-C) 1. How often do you have a drink containing alcohol?: Never 3. How often do you have six or more drinks on one occasion?: Never Total Score: 0 PAIGE-7 AMB Questionnaire PAIGE-7 Date PAIGE - 7 assessed: 09/12/24 Feeling nervous, anxious, or on edge: 0 = Not at all Not being able to stop or control worryin = Not at all Worrying too much about different things: 0 = Not at all Trouble relaxin = Not at all Being so restless that it is hard to sit still: 0 = Not at all Becoming easily annoyed or irritable: 0 = Not at all Feeling afraid as if something awful might happen: 0 = Not at all Total PAIEG-7 score (0-4 normal; 5-9 mild; 10-14 moderate; 15-21 severe): 0 Source: Developed by Drs. Anatoliy Gavin, Peyton Hunt, Austyn Weber and colleagues, with an educational kentrell from [employer]. Physical exam (Primary Care) Vital Signs: Last Vital Signs Temp 97.3 F 12/16/24 11:47 Pulse 57 12/16/24 11:47 BP 112/64 12/16/24 11:47 Pulse Ox 95 12/16/24 11:47 Oxygen Delivery Method Room Air 12/16/24 11:47 BMI result Body Mass Index 28.1 Tobacco/Smoking Status: Tobacco use Status Tobacco use date assessed 11/01/24 12/16/24 11:55 Patient Tobacco Use Status Former Tobacco user 12/16/24 11:55 Tobacco use type Cigarette 12/16/24 11:55 e-Cigarette/Vaping Use Never Used 12/16/24 11:55 PHQ-9: PHQ-9 Score PHQ-9: Total score 1 12/16/24 12:09 Depression Screening Interpretation: Negative Thrive Assessment: Date of Thrive Assessment Date Thrive assessed 09/12/24 12/16/24 11:55 Currently or been in a relationship where the following occur: No concerns reported Const General: alert; No acute distress Eyes Conjunctivae: conjunctivae normal Resp Auscultation: clear to auscultation bilaterally Cardio Rate: regular rate Rhythm: regular rhythm GI Inspection: Yes normal to inspection Coding Level of Care Code Est Pt Level 4 (06545) Complex EM visit Add On G2211 Diagnoses Fracture of right distal radius S52.501A S/P TAVR (transcatheter aortic valve replacement) Z95.2 COPD (chronic obstructive pulmonary disease) J44.9 Generalized anxiety disorder F41.1 Iron deficiency anemia, unspecified iron deficiency anemia type D50.9 Anemia type: iron deficiency Iron deficiency anemia type: unspecified iron deficiency GERD without esophagitis K21.9 Oral candidiasis B37.0 Essential tremor G25.0 Assessment & Plan Assessment & Plan (1) Fracture of right distal radius: Comment: November 2024 Code(s): S52.501A - Unspecified fracture of the lower end of right radius, initial encounter for closed fracture Category: Medical Plan: Patient has met with Orthopedics non operative and cast placed (2) S/P TAVR (transcatheter aortic valve replacement): Code(s): Z95.2 - Presence of prosthetic heart valve Category: Surgical Plan: Continue to follow up with Cardiology. (3) COPD (chronic obstructive pulmonary disease): Code(s): J44.9 - Chronic obstructive pulmonary disease, unspecified Category: Medical Plan: Presently on Advair and albuterol as needed (4) Generalized anxiety disorder: Comment: [facility] Code(s): F41.1 - Generalized anxiety disorder Category: Medical Plan: Continue with present medications on alprazolam as well as citalopram (5) Anemia: Code(s): D64.9 - Anemia, unspecified Category: Medical Qualifiers: Anemia type: iron deficiency Iron deficiency anemia type: unspecified iron deficiency Qualified Code(s): D50.9 - Iron deficiency anemia, unspecified Plan: Continue to monitor (6) GERD without esophagitis: Code(s): K21.9 - Gastro-esophageal reflux disease without esophagitis Category: Medical Plan: Avoid the foods that causes that usually spicy foods, tomato products, juices, coffee, soda and foods that your sensitive to. After eating do not lie down, allow 3-4 hours before in lie down. And keep the head of bed above 30 degrees to avoid the acid from going up. (7) Oral candidiasis: Code(s): B37.0 - Candidal stomatitis Category: Medical (8) Essential tremor: Code(s): G25.0 - Essential tremor Category: Medical Plan History of Present Illness The patient is an 84-year-old female presenting with a sore throat lasting over one week. The symptoms have recently worsened and include pain extending towards the ear, although she denies fever. Regular use of an Advair inhaler is noted, raising suspicion for topical thrush despite consistent mouth rinsing post-in halation. There are no reports of cough or significant dyspnea associated with the sore throat. Aside from this acute concern, the patient manages multiple chronic conditions, including generalized anxiety disorder, hypertension, and GERD. She is currently being monitored post-TAVR for severe aortic stenosis and frequently uses bronchodilators for COPD. A previous right distal radius fracture received non- operative treatment, with recent wrist X-ray confirming osteopenia. She also experiences difficulties in maintaining bowel regularity after constipation issues exacerbated by recommended use of MiraLAX and Senna, leading to watery stools. Recent lab work from December 05, 2024, depicts anemia and mild cytopenias with otherwise maintained renal function. Dietary habits suggest deficient nutr itional intake, contributing to ongoing weight loss. The patient's LDL levels and thyroid function remain within normal parameters per recent evaluations. Health Maintenance - Monitoring of blood pressure and cholesterol levels. - Reinforcement of consistent dietary habits rich in fiber and fluid intake to aid bowel movements. - Encouragement of regular physical activity to improve general health. - Close monitoring and follow-up with cardiology post-TAVR. - Continued management of COPD with prescribed inhalers. - Anemia and hematological parameters under surveillance with recent lab results . Social History - Lives independently but with family support. - Recent significant weight loss attributed to inadequate food intake; reportedly consumes sparse meals. - Engages in limited physical activity. Review of Systems - HENT: Reports sore throat and recent ear discomfort. Denies fever. - Respiratory: Denies cough, reports use of bronchodilators as needed. - GI: Reports loose stools, past diagnosis of constipation. - Neurological: Reports hand tremors without associated functional impairment. - General: Reports difficulty sleeping due to sore throat. Physical Exam - ENT- Throat inspection noted no redness, possible thrush suggested due to inhaler use. Results - Labs: December 05, 2024, blood work noted anemia, chronic leukopenia, mild thrombocytopenia; normal renal function, normal electrolytes. - Imaging: Right wrist X-ray displayed osteopenia, healing fracture. - Previous LDL level: 108, recorded September 2024. Plan I prescribed an antifungal agent for the suspected esophageal candidiasis related to inhaler use, advising proper rinsing procedure post-Advair. We discussed existing medication usage for COPD and essential tremors, maintaining current treatments. Emphasis was placed on dietary improvements to manage bowel habits and prevent further weight loss, involving family actively in her nutrition. The management of chronic health issues, including hypertension and cholesterol, would continue as per current practices, with routine reviews advised. Patient was informed and verbally consented to the use of an ambient scribe for clinic note documentation during this visit. Discussion Notes I discussed with the patient that her sore throat is likely due to thrush associated with her inhaler use. We reviewed the administration of a prescribed antifungal rinse for treatment, reiterating the importance of rinsing her mouth post-inhalation to limit recurrence. The patient was informed that her essential tremors appear stable, and current management would continue without intervention unless symptoms worsen. Dietary counseling was provided focusing on improved fiber and water intake for bowel health. Ongoing monitoring of hematological lab results was emphasized due to low counts, yet they remain stable at present, requiring no immediate intervention. Patient Instructions - Use the prescribed oral rinse three times a day for seven days; swish and swallow as directed. - Continue proper oral rinsing after using the Advair inhaler to prevent thrush recurrence. - Maintain fiber-rich diet and adequate hydration to support bowel regularity and overall health. - Report changes or concerns regarding breathing difficulties, bowel habits, or increased hand tremors. - Follow up for routine care and monitoring of chronic health issues. - Engage family in dietary improvements to prevent further weight loss and muscle atrophy. Medications: New nystatin swish and swallow 5 mL PO TID 105 mL 0RF 7 days B37.0 - Candidal stomatitis
--- OUTSIDE RECORDS SUMMARY | 2024-12-16 13:48 | XMS_ITS | Data Portability ---
Author Organization [facility] Home Service Address [address] [place] [address] Assessment No assessment recorded. Plan of Treatment Reminders Order Date Submit Date Provider Last Modified By Organization Details Last Modified Time Details Appointments None recorded. Lab BMP, blood [address] [facility], [address] [place] [address], [facility], [place], [address], 9 07:42:19 lipid panel, blood [address] [facility], [address] [place] [address], [facility], [place], [address], 9 07:42:20 Referral None recorded. Procedures None recorded. Surgeries None recorded. Imaging None recorded. Medication Orders C[facility] 500 [address] tablet [address] [id number] [address] [place], [place], [id number], 9 11:53:38 Zithromax Z-Rajesh 250 mg tablet 2018 019 [facility][id number], [address] [place], [place], [id number], 9 11:53:23 metoprolol succinate ER 25 mg tablet,exte nded release 24 hr 2018 [id number] [address] [place], [place], [id number], 9 11:15:40 Patient Targets Encounter Date Encounter Id Patient Goals Patient Target Last Modified By Organization Details Last Modified Time Call therapist to schedule counseling marilynn Not available 09/26/2018 11:54:07 Patient Instructions Encounter Date Encounter Id Patient Instructions Last Modified By Organization Details Last Modified Time 09/21/2018 [id number] Relaxation, reconsider escitalopram- will review at f/u next week to avoid dual med starting together marilynn Not available 09/21/2018 15:27:44 09/26/2018 [id number] pulse oximetry* marilynn Not available 09/26/2018 11:54:08 10/08/2018 [id number] Acute Sinusitis: Care Instructions marilynn Not available 10/08/2018 11:28:17 pulse oximetry* marilynn Not available 10/08/2018 11:28:17 12/04/2018 [id number] pulse oximetry* marilynn Not available 12/04/2018 12:22:51 Reason for Referral None Reported. Results Created Date Observation Date Name Description Value Unit Range Abnormal Flag Note LastModifiedBy Organization Detail LastModifiedTime 09/26/19 19 09/26/2018 pulse oxime try* Result 96 Not Available [facility] [address], [address], 09/26/2018 11:15:30 10/08/19 19 10/08/2018 pulse oxime try* Result 97 Not Available [facility] [address], [address], 10/08/2018 11:18:00 12/05/19 19 12/04/2018 pulse oxime try* Result 97 Not Available [facility] [address], [address], 12/04/2018 11:55:20 Result Notes None recorded. Problems Name Problem SNOMED Code Status Onset Date Resolution Date Notes Provider Name and Address Organization Details Recorded Time Abdominal aortic aneurysm 025987696 Active 2017 Samina Lama NP, [address] [place], [address], [facility] 8 13:58:39 Diverticul itis 312549957 Active 2017 Tainaronnell Hanson [facility] 8 16:58:14 Chronic obstructiv e pulmonary disease 09848303 [facility] 2017 [facility] 8 16:58:22 Aortic valve stenosis 53655969 [facility] 16:58:36 Anxiety 85257358 Active 2017 [facility] 8 16:58:45 Cystocele 922097951 Active 2017 [facility] 16:58:58 Problem Notes None recorded. Medical Equipment None Reported. Allergies Allergen ID Allergen Name Allergen Category Reaction Reaction Severity Criticality Documentation Date Start Date Code Code System Note Provider Name and Address Organization Details Recorded Time 1547 Substance with sulfonami de structure and antibacte rial mechanism of action (substanc e) medicatio n Not available Not available Not available 02/06/2018 20898 8003 SNOMED Tainaronnell Hanson [facility] 8 16:57:43 1548 Keflex medicatio n Not available Not available Not available 02/06/2018 7 RxNorm Tainaronnell Hanson [facility] 8 16:57:55 2328 Flagyl medicatio n other moderate Not available 05/29/201878105 6 RxNorm Tainaronnell Hanson [facility] 8 11:44:55 2717 metoprolo l Not available chest pain Not available Not available 09/21/2018 6918 RxNorm Tainaronnell Hanson [facility] 9 16:31:23 Medications Name Sig [...] % 128 mm[Hg] 84 mm[Hg] Taina Hanson [facility] 9 14:32:26 Date Recorded Body height Heart rate Oxygen saturation Oxygen saturation in Arterial blood by Pulse oximetry Systolic blood pressure Diastolic blood pressure Provider Name and Address Organization Details Last Updated DateTime 9 168.91 cm 90 /min 96 % 96 % 124 mm[Hg] 80 mm[Hg] Eunice Molina [facility] 9 11:17:24 Date Recorded Body height Oxygen saturation Oxygen saturation in Arterial blood by Pulse oximetry Heart rate Body temperature Systolic blood pressure Diastolic blood pressure Provider Name and Address Organization Details Last Updated DateTime 9 168.91 cm 97 % 97 % 112 /min 98.2 [degF] 142 mm[Hg] 86 mm[Hg] Taianronnell Hanson [facility] 9 11:17:37 Date Recorded Heart rate Provider Name an d Address Organization Details Last Updated DateTime 10/08/2018 84 /min Samina Lama NP, [address] [place], [address], [facility] 10/08/2018 11:28:37 Date Recorded Body height Heart rate Oxygen saturation Oxygen saturation in Arterial blood by Pulse oximetry Systolic blood pressure Diastolic blood pressure Provider Name and Address Organization Details Last Updated DateTime 9 168.91 cm 105 /min 98 % 98 % 140 mm[Hg] 80 mm[Hg] [facility] 9 11:45:01 Date Recorded Heart rate Provider Name an d Address Organization Details Last Updated DateTime 10/19/2018 80 /min Samina Lama NP, [address] [place], [address], [facility] 10/19/2018 12:04:58 Date Recorded Body height Body mass index (BMI) Body weight Oxygen saturation Oxygen saturation in Arterial blood by Pulse oximetry Heart rate Systolic blood pressure Diastolic blood pressure Provider Name and Address Organization Details Last Updated DateTime 9 168.91 cm 31.1 kg/m2 81078.6 7 g 97 % 97 % 97 /min 120 mm[Hg] 90 mm[Hg] Dahiana Ha [facility] 9 11:56:24 Social History Question Answer Notes LastModified by Organizat ion Details LastModified Time Tobacco Smoking Status Former Smoker Not Available [facility] 07/07/2020 03:36:24 What Was The Date Of Your Most Recent Tobacco Screening? 12/04/2018 [id number] Information not available 07/07/2020 Sex: Unknown Functional [...] virus, quadrivalent, preservative 8 completed Eunice damon [facility] 09/26/2018 11:16:26 Past Encounters Encounter ID Performer Location Encounter Start Date Encounter Closed Date Diagnosis/Indication Diagnosis SNOMED-CT Code Diagnosis ICD10 Code Diagnosis Note [id number] Samina Lama NP, S [facility] [address],[place] [address] 02/07/2018 11:02:27 02/07/2018 16:46:02 Anxiety 60117573 F41.9 Nail changes 675737649 L 60.9 Abdominal aortic aneurysm 901726898 I71.4 CT 11/2017, no changes 2016, 2.85 cm Aortic david nosis, non-rheumatic 319832902 I35.0 stable Gastroesop hageal reflux disease 751902865 K21.9 d/c yajaira mints, call if persists Insomnia 010141930 G47.0 0 review proper sleep hygiene be more active during day avoid naps [id number] Samina Lama NP, S [facility] [address],[place] [address] 03/16/2018 11:29:23 03/20/2018 08:12:01 Dehydration 93261240 E86.0 Gastroenteritis 65658874 K52.9 Aortic valve stenosis 60 461323 I35.0 stable, follow [id number] Samina Lama NP, S [facility] [address] [address],[place] [address] 05/16/2018 13:23:14 05/16/2018 14:06:44 Anxiety 41364761 F41.9 BID lorazepam helps Aortic valve stenosis 60 612312 I35.0 stable, echo 05/31/2017 Active or passive immunization 494888498 Z23 Abdominal aortic aneurysm 883324693 I71.4 CT 11/2017, no changes 2016, 2.85 cm Chronic ob structive pulmonary disease 56438825 J44.9 Non smoker X years, asymptomat ic Diverticular disease 397 940771 K57.90 no recent flare [id number] Samina Lama NP, [facility] [address],[place] [address] 05/29/2018 11:40:58 05/29/2018 16:52:51 Aortic valve stenosis 66368364 I35.0 stable, echo 05/31/2017 Anxiety 23747578 F41.9 BID lorazepam helps, discussed current fears re: Constipation 88671658 K5 9.00 [id number] Samina Lama NP, S [facility] [address],[place] [address] 08/14/2018 11:20:27 08/14/2018 17:00:16 Anxiety 30322426 F41.9 BID lorazepam helps, discussed current fears Aortic valve stenosis 60 949274 I35.0 stable, echo 05/31/2017 Diverticulitis 835658118 K57.92 Increased frequency of urination 071208690 R35.0 [id number] Samina Lama NP, S [facility] [address],[place] [address] 08/20/2018 11:12:33 08/20/2018 12:20:46 Anxiety 56016834 F41.9 BID alprazolam helps, discussed current fears Diverticulitis 128319974 K57.92 Aortic valve stenosis 60 043550 I35.0 stable, echo 05/31/2017 Family problems 76851730 4 Z63.79 Suggest therapy, names provided. Pt agrees [id number] Samina Lama NP, S [facility] [address],[place] [address] 09/12/2018 10:19:31 09/12/2018 20:18:16 Abdominal aortic aneurysm 134242860 I71.4 CT 11/2017, no changes 2016, 2.85 cm Chronic ob structive pulmonary disease 36861548 J44.9 Non smoker X years, asymptomat ic Anxiety 27688446 F41.9 BID alprazolam helps, discussed current fears Aortic valve stenosis 60 246580 I35.0 stable, echo 05/31/2017 [id number] Samina Lama NP, [facility] [address],[place] [address] 09/21/2018 14:26:58 09/25/2018 11:17:00 Anxiety 58537799 F41.9 discussed current fears again, see below Aortic valve stenosis 60 587346 I35.0 [id number] Samina Lama NP, S [facility] [address] [facility] [address],[place] [address] 09/26/2018 11:12:05 09/26/2018 13:02:53 Hypertensive disorder 91188705 I10 Chronic ob structive pulmonary disease 14596777 J44.9 Non smoker X years, asymptomat ic Anxiety 47381435 F41.9 discussed current fears again, see below Aortic valve stenosis 60 971335 I35[place] [id number] Samina Lama NP, [facility] [address] [facility] [address],[place] [address] 10/08/2018 11:12:38 10/08/2018 14:35:10 Cough 68108777 R05 Acute sinusitis 79941103 J01.90 Anxiety 39269558 F41.9 revisited [id number] Samina Lama NP, S [place] [facility] [address] [facility] [address] [address] 10/19/2018 11:41:00 10/19/2018 12:37:34 Diverticulitis 840447375 K57.92 Intolerant Flagyl Anxiety 84137200 F41.9 revisited Aortic valve stenosis 60 125767 I35.0 asymptomat ic Abdominal aortic aneurysm 224878560 I71.4 CT 11/2017, no changes 2016, 2.85 cm Chronic ob structive pulmonary disease 65014507 J44.9 Non smoker [place], [place] [id number] Samina Lama NP, S [facility] [address] [facility] [address],[place] [address] 12/04/2018 11:49:58 12/04/2018 16:03:42 Chronic obstructive pulmonary disease 96480819 J44.9 Non smoker X years, asymptomat ic Anxiety 31657514 F41.9 revisited Aortic valve stenosis 60 189100 I35.0 asymptomat ic Health Concerns Section Related Observation LastModified by Organization Detai ls LastModified Time None Recorded Concern Status LastModified by Organization Details LastModified Time None Recorded Advance Directives Directive None Recorded Payers Encounter Date Sequence Insurance Name Policy Number Policy Berry Covered Member ID Berry Member ID Guarantor Name 09/21/2018 2 [facility] [id number] Bella Knappel [id number] Bella [place] 09/21/2018 1 MEDICARE B-PR: [employer] Bella Henley [id number] Bella [place] 09/26/2018 2 [facility] [id number] Bella Keith Kale [id number] Bella [place] 09/26/2018 1 MEDICARE B-PR: [employer] Bella Henley [id number] Bella Henley 10/08/2018 2 [facility] [id number] Bella Henley [id number] Bella [place] 10/08/2018 1 MEDICARE B-PR: [facility] Bella Henley [id number] Bella Henley 10/19/2018 2 [facility] [id number] Bella Henley [id number] Bella [place] 10/19/2018 1 MEDICARE B-PR: [facility] Bella Henley [id number] Bella Henley 12/04/2018 2 [facility] [id number] Bella Henley [id number] Bella Henley 12/04/2018 1 MEDICARE B-PR: [facility] Bella Henley [id number] Bella Henley Notes Date Note Type Note Provider Name a nd Address Organization Details Recorded Time 09/21/2018 text/html Here with concer ns BP had panic attack this am, ambulance was called Checked BP after pts episode was 158/101 Did not start escitalopram prescribed last week , under a great deal of stress Samina Lama NP, [address] [place], [address], [facility] 09/21/2018 15:27:56 09/26/2018 [...] complete ADL's Samina Lama NP, S [address] [place], [address], [facility] 09/26/2018 11:54:50 10/08/2018 [...] family situation Samina Lama NP, S [address] [place], [address], [facility] 10/08/2018 11:49:45 10/19/2018 text/html Yesterday felt o k last night 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 this a.m. also increased voiding w/no dysuria no N/V/D/C, no BRBPR or hematuria Samina Lama NP, S [address] [place], [address], [facility] 10/19/2018 12:09:27 12/04/2018 text/html Very anxious re: husbands cognitive decline/getting worn out In therapy w/Peter Dopp Son also recent renal cancer, surgery went well.-but pt. gets worked up over everything pt recently started back on allergy shots some heartburn and post nasal drip Samina Lama NP, S [address] [facility], [place], [address], [facility] 12/04/2018 12:23:16 OBGyn Episode No OBEpisode recorded.
--- OUTSIDE RECORDS SUMMARY | 2024-12-16 13:49 | XMS_ITS | Clinical Summary ---
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
== END 2024-12-16 12:25 | disposition home or self-care (01) ==
LOC: HO.HMCH 11:46
PROVIDERS: PCP Internal Medicine; Visit Provider Internal Medicine
DX: S52.501A Unspecified fracture of the lower end of right radius, initial encounter for closed fracture (principal); Z95.2 Presence of prosthetic heart valve; J44.9 Chronic obstructive pulmonary disease, unspecified; F41.1 Generalized anxiety disorder; D50.9 Iron deficiency anemia, unspecified; K21.9 Gastro-esophageal reflux disease without esophagitis; B37.0 Candidal stomatitis; G25.0 Essential tremor

== ENCOUNTER → 2024-12-16 11:46 | Outpatient (BNVA) | payer MEDICARE, OTHER, SELFPAY | PROVIDERS: PCP Internal Medicine; Visit Provider Internal Medicine | DX: S52.501A Unspecified fracture of the lower end of right radius, initial encounter for closed fracture (principal); J44.9 Chronic obstructive pulmonary disease, unspecified; F41.1 Generalized anxiety disorder; D50.9 Iron deficiency anemia, unspecified; K21.9 Gastro-esophageal reflux disease without esophagitis; B37.0 Candidal stomatitis; G25.0 Essential tremor; X58.XXXA Exposure to other specified factors, initial encounter; Y93.9 Activity, unspecified; Y92.9 Unspecified place or not applicable; Y99.9 Unspecified external cause status; Z95.2 Presence of prosthetic heart valve; Z87.891 Personal history of nicotine dependence | CPT/HCPCS: 99212 ==

== ENCOUNTER 2024-12-17 13:30 | Outpatient (REF) | payer MEDICARE, OTHER, SELFPAY ==
--- NOTE | ~2024-12-17 | XR_ITS ---
EXAMINATION: XR WRIST 3 OR MORE VIEWS RIGHT HISTORY: M25.531 - Pain in right wrist COMPARISON: Comparison is made with the prior examination dated 12/02/2024. FINDINGS: Three views of the right wrist are submitted. The bones are osteopenic. Again seen is a transverse fracture of the distal radial metaphysis. There is greater sclerosis at the fracture site, consistent with healing. Again seen is moderate degenerative change of the radial aspect of the carpus. The soft tissues are unremarkable. XR/XR wrist RT min 3V IMPRESSION: Osteopenia. Healing transverse fracture of the distal radial metaphysis. Electronically signed by: Anatoliy Elias MD 12/18/2024 11:31 AM EDT
--- OUTSIDE RECORDS SUMMARY | 2024-12-17 16:30 | XMS_ITS | Clinical Summary ---
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
--- OUTSIDE RECORDS SUMMARY | 2024-12-17 16:30 | XMS_ITS | Data Portability ---
Author Organization [facility], Home Service Address [address] [place] [address] Assessment No assessment recorded. Plan of Treatment Reminders Order Date Submit Date Provider Last Modified By Organization Details Last Modified Time Details Appointments None recorded. Lab BMP, blood [address] Internal Medicine, [address] [place] [address], [facility], [place], [address], 9 07:42:19 lipid panel, blood [address] Internal [facility], [address] [place] [address], [facility] D, [place], [address], 9 07:42:20 Referral None recorded. Procedures None recorded. Surgeries None recorded. Imaging None recorded. Medication Orders Cipro 500 mg tablet 2018 019 [id number], [address] [place], [place], [id number], 9 11:53:38 Zithromax Z-Rajesh 250 mg tablet [address] [id number], [address] [place], [place], [id number], 9 11:53:23 metoprolol succinate ER 25 mg tablet,exte nded release 24 hr 2018 [id number], [address] [place], [place], [id number], 9 11:15:40 Patient Targets Encounter Date Encounter Id Patient Goals Patient Target Last Modified By Organization Details Last Modified Time Call therapist to schedule counseling marilynn Not available 09/26/2018 11:54:07 Patient Instructions Encounter Date Encounter Id Patient Instructions Last Modified By Organization Details Last Modified Time 09/21/2018 [id number] Relaxation, reconsider escitalopram- will review at f/u next week to avoid dual med starting together marilynn Not available 09/21/2018 15:27:44 09/26/2018 [id number] pulse oximetry* marilynn Not available 09/26/2018 11:54:08 10/08/2018 [id number] Acute Sinusitis: Care Instructions marilynn Not available 10/08/2018 11:28:17 pulse oximetry* marilynn Not available 10/08/2018 11:28:17 12/04/2018 [id number] pulse oximetry* marilynn Not available 12/04/2018 12:22:51 Reason for Referral None Reported. Results Created Date Observation Date Name Description Value Unit Range Abnormal Flag Note LastModifiedBy Organization Detail LastModifiedTime 09/26/19 19 09/26/2018 pulse oxime try* Result 96 Not Available [facility] [address], [address], 09/26/2018 11:15:30 10/08/19 19 10/08/2018 pulse oxime try* Result 97 Not Available [facility] [address], [address], 10/08/2018 11:18:00 12/05/19 19 12/04/2018 pulse oxime try* Result 97 Not Available [facility] [address], [address], 12/04/2018 11:55:20 Result Notes None recorded. Problems Name Problem SNOMED Code Status Onset Date Resolution Date Notes Provider Name and Address Organization Details Recorded Time Abdominal aortic aneurysm 596284160 Active 2017 Samina Lama NP, [address] [place], [address], [facility] 8 13:58:39 Diverticul itis 281105726 Active 2017 Tainaronnell Hanson [facility] 8 16:58:14 Chronic obstructiv e pulmonary disease 59224520 [facility] 16:58:22 Aortic valve stenosis 62241213 [facility] 16:58:36 Anxiety 58988834 [facility] 8 16:58:45 Cystocele 566599516 [facility] 8 16:58:58 Problem Notes None recorded. Medical Equipment None Reported. Allergies Allergen ID Allergen Name Allergen Category Reaction Reaction Severity Criticality Documentation Date Start Date Code Code System Note Provider Name and Address Organization Details Recorded Time 1547 Substance with sulfonami de structure and antibacte rial mechanism of action (substanc e) medicatio n Not available Not available Not available 02/06/2018 34694 8003 SNOMED Tainaronnell Hanson [facility] 8 16:57:43 1548 Keflex medicatio n Not available Not available Not available 02/06/2018 7 RxNorm Tainaronnell Hanson [facility] 8 16:57:55 2328 Flagyl medicatio n other moderate Not available 05/29/201881991 6 RxNorm Tainaronnell Hanson [facility] 8 11:44:55 2717 metoprolo l Not available chest pain Not available Not available 09/21/2018 6918 RxNorm Tainaronnell Hanson [facility] 9 16:31:23 Medications Name Sig Start [...] % 128 mm[Hg] 84 mm[Hg] Taina Hanson [facility] 9 14:32:26 Date Recorded Body height Heart rate Oxygen saturation Oxygen saturation in Arterial blood by Pulse oximetry Systolic blood pressure Diastolic blood pressure Provider Name and Address Organization Details Last Updated DateTime 9 168.91 cm 90 /min 96 % 96 % 124 mm[Hg] 80 mm[Hg] Eunice Molina [facility] 9 11:17:24 Date Recorded Body height Oxygen saturation Oxygen saturation in Arterial blood by Pulse oximetry Heart rate Body temperature Systolic blood pressure Diastolic blood pressure Provider Name and Address Organization Details Last Updated DateTime 9 168.91 cm 97 % 97 % 112 /min 98.2 [degF] 142 mm[Hg] 86 mm[Hg] Tainaronnell Hanson [facility] 9 11:17:37 Date Recorded Heart rate Provider Name an d Address Organization Details Last Updated DateTime 10/08/2018 84 /min Samina Lama NP, [address] [place], [address], [facility] 10/08/2018 11:28:37 Date Recorded Body height Heart rate Oxygen saturation Oxygen saturation in Arterial blood by Pulse oximetry Systolic blood pressure Diastolic blood pressure Provider Name and Address Organization Details Last Updated DateTime 9 168.91 cm 105 /min 98 % 98 % 140 mm[Hg] 80 mm[Hg] [facility] 9 11:45:01 Date Recorded Heart rate Provider Name an d Address Organization Details Last Updated DateTime 10/19/2018 80 /min Samina Lama NP, [address] [place], [address], [facility] 10/19/2018 12:04:58 Date Recorded Body height Body mass index (BMI) Body weight Oxygen saturation Oxygen saturation in Arterial blood by Pulse oximetry Heart rate Systolic blood pressure Diastolic blood pressure Provider Name and Address Organization Details Last Updated DateTime 9 168.91 cm 31.1 kg/m2 18232.6 7 g 97 % 97 % 97 /min 120 mm[Hg] 90 mm[Hg] Dahiana Ha [facility] 9 11:56:24 Social History Question Answer Notes LastModified by Organizat ion Details LastModified Time Tobacco Smoking Status Former Smoker Not [facility] 03:36:24 What Was The Date Of Your Most Recent Tobacco Screening? 12/04/2018 [id number] Information not available 07/07/2020 Sex: Unknown Functional Status None recorded. Mental Status None recorded. Family History Nothing Reported. Medical History Condition Response Coronary Artery Disease N Other N Gout N Kidney Stones N Blood Diseases N Breast Cancer N Blood Transfusion N [...] virus, quadrivalent, preservative 8 completed Eunice damon [facility] 09/26/2018 11:16:26 Past Encounters Encounter ID Performer Location Encounter Start Date Encounter Closed Date Diagnosis/Indication Diagnosis SNOMED-CT Code Diagnosis ICD10 Code Diagnosis Note [id number] Samina Lama NP, S [facility] [address] [facility],[place] [address] 02/07/2018 11:02:27 02/07/2018 16:46:02 Anxiety 07965778 F41.9 Nail changes 364866133 L 60.9 Abdominal aortic aneurysm 742586420 I71.4 CT 11/2017, no changes 2016, 2.85 cm Aortic david nosis, non-rheumatic 477843472 I35.0 stable Gastroesop hageal reflux disease 205189268 K21.9 d/c yajaira mints, call if persists Insomnia 785708040 G47.0 0 review proper sleep hygiene be more active during day avoid naps [id number] Samina Lama NP, S [facility] [address] [facility],[place] [address] 03/16/2018 11:29:23 03/20/2018 08:12:01 Dehydration 93239213 E86.0 Gastroenteritis 65246862 K52.9 Aortic valve stenosis 60 124919 I35.0 stable, follow [id number] Samina Lama NP, S [facility] [address] [facility],[place] [address] 05/16/2018 13:23:14 05/16/2018 14:06:44 Anxiety 75466797 F41.9 BID lorazepam helps Aortic valve stenosis 60 477271 I35.0 stable, echo 05/31/2017 Active or passive immunization 802896713 Z23 Abdominal aortic aneurysm 116381614 I71.4 CT 11/2017, no changes 2016, 2.85 cm Chronic ob structive pulmonary disease 49789106 J44.9 Non smoker X years, asymptomat ic Diverticular disease 397 101160 K57.90 no recent flare [id number] Samina Lama NP, [facility] [address] [facility],[place] [address] 05/29/2018 11:40:58 05/29/2018 16:52:51 Aortic valve stenosis 92591759 I35.0 stable, echo 05/31/2017 Anxiety 37337701 F41.9 BID lorazepam helps, discussed current fears re: Constipation 18281721 K5 9.00 [id number] Samina Lama NP, S [facility] [address] [facility],[place] [address] 08/14/2018 11:20:27 08/14/2018 17:00:16 Anxiety 85768696 F41.9 BID lorazepam helps, discussed current fears Aortic valve stenosis 60 859980 I35.0 stable, echo 05/31/2017 Diverticulitis 178562106 K57.92 Increased frequency of urination 241390166 R35.0 [id number] Samina Lama NP, S [facility] [address] [facility],[place] [address] 08/20/2018 11:12:33 08/20/2018 12:20:46 Anxiety 07358148 F41.9 BID alprazolam helps, discussed current fears Diverticulitis 204503957 K57.92 Aortic valve stenosis 60 802316 I35.0 stable, echo 05/31/2017 Family problems 84348778 4 Z63.79 Suggest therapy, names [place]. [place] agrees [id number] Samina Lama NP, S [facility] [address] [facility],[place] [address] 09/12/2018 10:19:31 09/12/2018 20:18:16 Abdominal aortic aneurysm 044114964 I71.4 CT 11/2017, no changes 2016, 2.85 cm Chronic ob structive pulmonary disease 78454456 J44.9 Non smoker X years, asymptomat ic Anxiety 11561379 F41.9 BID alprazolam helps, discussed current fears Aortic valve stenosis 60 367483 I35.0 stable, echo 05/31/2017 [id number] Samina Lama NP, [facility] [address] [facility],[place] [address] 09/21/2018 14:26:58 09/25/2018 11:17:00 Anxiety 56766288 F41.9 discussed current fears again, see below Aortic valve stenosis 60 406646 I35.0 [id number] Samina Lama NP, S [facility] [address] [facility] [address],[place] [address] 09/26/2018 11:12:05 09/26/2018 13:02:53 Hypertensive disorder 92163990 I10 Chronic ob structive pulmonary disease 60716515 J44.9 Non smoker X years, asymptomat ic Anxiety 07569343 F41.9 discussed current fears again, see below Aortic valve stenosis 60 334660 [place] [id number] Samina Lama NP, [facility] [address] [facility] [address],[place] [address] 10/08/2018 11:12:38 10/08/2018 14:35:10 Cough 38832090 R05 Acute sinusitis 72516787 J01.90 Anxiety 49255638 F41.9 revisited [id number] Samina Lama NP, S [facility] [address] [facility] [address], [place] [address] 10/19/2018 11:41:00 10/19/2018 12:37:34 Diverticulitis 393461250 K57.92 Intolerant Flagyl Anxiety 44578540 F41.9 revisited Aortic valve stenosis 60 977071 I35.0 asymptomat ic Abdominal aortic aneurysm 176533059 I71.4 CT 11/2017, no changes 2016, 2.85 cm Chronic ob structive pulmonary disease 70654057 J44.9 Non sm[place], [place] [id number] Samina Lama NP, S [facility] [address] [facility] [address],[place] [address] 12/04/2018 11:49:58 12/04/2018 16:03:42 Chronic obstructive pulmonary disease 79339542 J44.9 Non smoker X years, asymptomat ic Anxiety 79807281 F41.9 revisited Aortic valve stenosis 60 456643 I35.0 asymptomat ic Health Concerns Section Related Observation LastModified by Organization Detai ls LastModified Time None Recorded Concern Status LastModified by Organization Details LastModified Time None Recorded Advance Directives Directive None Recorded Payers Encounter Date Sequence Insurance Name Policy Number Policy Berry Covered Member ID Berry Member ID Guarantor Name 09/21/2018 2 [facility] [id number] Bella Knappel [id number] Bella [place] 09/21/2018 1 MEDICARE B-SD: [employer] Bella Henley [id number] Bella Henley 09/26/2018 2 [facility] [id number] Bella Keith Kale [id number] Bella Henley 09/26/2018 1 MEDICARE B-SD: [employer] Bella Henley [id number] Bella Henley 10/08/2018 2 [facility] [id number] Bella Henley [id number] Bella Henley 10/08/2018 1 MEDICARE B-[place]: [facility] Bella Henley [id number] Bella Henley 10/19/2018 2 [facility] [id number] Bella Henley [id number] Bella Henley 10/19/2018 1 MEDICARE B-[place]: [facility] Bella Henley [id number] Bella Henley 12/04/2018 2 [facility] [id number] Bella Henley [id number] Bella Henley 12/04/2018 1 MEDICARE B-SD: [facility] Bella Henley [id number] Bella Henley Notes Date Note Type Note Provider Name a nd Address Organization Details Recorded Time 09/21/2018 text/html Here with concer ns BP had panic attack this am, ambulance was called Checked BP after pts episode was 158/101 Did not start escitalopram prescribed last week , under a great deal of stress Samina Lama NP, [address] [place], [address], [facility] 09/21/2018 15:27:56 09/26/2018 [...] complete ADL's Samina Lama NP, S [address] [place], [address], [facility] 09/26/2018 11:54:50 10/08/2018 [...] family situation Samina Lama NP, [address] [place], [address], [facility] 10/08/2018 11:49:45 10/19/2018 text/html Yesterday felt o k 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 this a.m. also increased voiding w/no dysuria no N/V/D/C, no BRBPR or hematuria Samina Lama NP, S [address] [place], [address], [facility] 10/19/2018 12:09:27 12/04/2018 text/html Very anxious re: husbands cognitive decline/getting worn out In therapy w/Peter Dopp Son also recent renal cancer, surgery went well.-but pt. gets worked up over everything pt recently started back on allergy shots some heartburn and post nasal drip Samina Lama NP, S [address] [facility], [place], [address], [facility] 12/04/2018 12:23:16 OBGyn Episode No OBEpisode recorded.
== END 2024-12-17 13:31 | disposition home or self-care (01) ==
LOC: HO.HOSX 13:30
DX: M25.531 Pain in right wrist (principal); S52.501D Unspecified fracture of the lower end of right radius, subsequent encounter for closed fracture with routine healing
CPT/HCPCS: 73110; 99212

== ENCOUNTER 2024-12-17 14:02 | Outpatient (AMB) | payer MEDICARE, OTHER, SELFPAY ==
--- NOTE | 2024-12-17 14:04 | MHC.OFFVIS ---
Vital Signs 12/17/24 14:16 Height 5 ft 6 in Weight 174 lb BMI 28.1 Intake Visit Reasons: OV- Right Distal Radius Fx 11/22/24-w/xrays Intake Note: Bella is an 84 year old female who presents today for a follow up of right distal radius fracture, DOI 11/22/24. On 12/02/24 patient was placed in a cast.Patient reports that she is having no pain. She denies numbness and tingling. She is with her son today who reports that she has been overdoing it. Allergies buspirone Allergy (Intermediate, Verified 12/17/24 14:20) Rash Sulfa (Sulfonamide Antibiotics) Allergy (Intermediate, Verified 12/17/24 14:20) RASH cefuroxime Allergy (Unknown, Verified 12/17/24 14:20) Unknown garlic [GARLIC] Allergy (Unknown, Verified 12/17/24 14:20) PER H&P metronidazole [From FLAGYL] Allergy (Unknown, Verified 12/17/24 14:20) OCULAR MIGRAINES penicillamine Allergy (Unknown, Verified 12/17/24 14:20) Unknown ciprofloxacin Adverse Reaction (Intermediate, Verified 12/17/24 14:20) neuropathic pain lisinopril Adverse Reaction (Intermediate, Verified 12/17/24 14:20) Cough nitrofurantoin Adverse Reaction (Mild, Verified 12/17/24 14:20) GI side effects cefuroxime Allergy (Intermediate, Uncoded 12/17/24 14:20) wheezy cough/itch flagyl Allergy (Unknown, Uncoded 12/17/24 14:20) Unknown From KEFLEX Allergy (Unknown, Uncoded 12/17/24 14:20) RASH Metoprolol Tartrate Allergy (Unknown, Uncoded 12/17/24 14:20) Unknown Sulfacet-R Allergy (Unknown, Uncoded 12/17/24 14:20) Unknown HPI HPI OV- Right Distal Radius Fx 11/22/24-w/xrays: Details: Bella is an 84 year old female who presents today for a follow up of right distal radius fracture, DOI 11/22/24. On 12/02/24 patient was placed in a cast.Patient reports that she is having no pain. She denies numbness and tingling. She is with her son today who reports that she has been overdoing it [facility] Medical History Pulmonary nodule Chest pain URI (upper respiratory infection) HTN (hypertension) Cough Heart palpitations Constipation LLQ abdominal pain Anxiety Breast cancer screening Breast pain, left Elevated vitamin B12 level Neck muscle spasm Strain of neck muscle Low back pain Pubic ramus fracture Sore throat Skin tear of upper arm without complication Head injury, acute, without loss of consciousness Fall Dizziness Medication noncompliance due to cognitive impairment RLQ abdominal pain Sinusitis Flu syndrome Precordial chest pain Atypical chest pain Cold intolerance Former smoker Abnormal lung sounds Fever Bilateral calf pain Nausea Left lower quadrant abdominal pain Dysuria Fatigue Lower extremity weakness Aortic stenosis Obstipation Dark stools Lower abdominal pain Gastroenteritis Neck pain on right side Back pain Rhinitis Elevated BP without diagnosis of hypertension Non-rheumatic aortic stenosis Diverticulitis GERD (gastroesophageal reflux disease) Cat scratch Cat bite Epigastric discomfort Diarrhea Nausea Viral syndrome GERD (gastroesophageal reflux disease) Neuropathy Arthritis GERD (gastroesophageal reflux disease) HTN (hypertension) Irritable bowel Heart murmur Surgical History S/P TAVR (transcatheter aortic valve replacement) Hx of esophagogastroduodenoscopy Hx of colonoscopy History of tonsillectomy History of appendectomy Family History Father No problems noted. Mother No problems noted. Social History Household Members: Children Housing: House Are you a primary floor care specialist to a significant other at home: No Do you presently have visiting nurse or other home services: No Alcohol intake: former Patient Tobacco Use Status: Former Tobacco user Tobacco use type: Cigarette e-Cigarette/Vaping Use: Never Used Second Hand Smoke Exposure: Yes Advance Directives Date on File: 03/28/23 service: No Current occupational status: retired Cognitive needs: No Hearing needs: No Vision needs: Yes (glasses) Review of Systems Const All systems reviewed & are unremarkable except as noted in HPI and below Physical Exam Vital Signs: BMI result Body Mass Index 28.1 Extrem Other: Patient is alert, oriented, and in no acute distress. Neuro: Normal sensation of the tips of all digits of the right hand at this time Vascular: Cap refill brisk Pain: No tenderness to palpation noted about the distal radius of the right wrist No pain with range of motion of the hand ROM: Patient is able to make a closed fist and extend all digits of the right hand fully Skin: No lacerations or abrasions. General: No ecchymosis, erythema, or evidence of infection. Psych: Appears grossly normal Affect normal Attitude cooperative Results Reviewed Results Reviewed: X-rays obtained in the office today and independently reviewed by me, Sumit Pollock PA-C, demonstrate minimally displaced, comminuted fracture of the right distal radius with evidence of interval bony healing. Assessment & Plan Assessment & Plan (1) Fracture of right distal radius: Comment: November 2024 Code(s): S52.501A - Unspecified fracture of the lower end of right radius, initial encounter for closed fracture Category: Medical Plan 1. Minimally displaced fracture of right distal radius Date of injury 11/22/2024 Patient is educated about this condition Patient was educated about the typical treatment course Patient was given a Velcro wrist splint today, to be worn like a cast for the next week and then to be removed at all time it is of the daytime activities Continue with 2 lb weight limit Patient and her son state understanding of this and are amenable to this plan Patient will follow-up in 4 week with repeat x-rays for reassessment, sooner with any acute concerns Orders: Orders XR wrist RT min 3V Today M25.531 - Pain in right wrist Coding Level of Care Code Global (00251) Diagnoses Fracture of right distal radius S52.501A
[2024-12-17 14:16] VITALS: BMI 28.1
--- OUTSIDE RECORDS SUMMARY | 2024-12-17 17:18 | XMS_ITS | Clinical Summary ---
Author Organization [facility] it Address [address] [place] [address] Care Team Providers Care Account Services Manager Name Role Phone Unavailable Primary Care [...] Documents on File Type Date Recorded Patient Thoracic Medicine Physician Expl anation Health Care Decision (hx) 09/07/2023 HE ALTH CARE PROXY Health Care Decision (hx) 03/03/2023 HE ALTH CARE PROXY
== END 2024-12-17 14:48 | disposition home or self-care (01) ==
LOC: HO.HOS 14:02
PROVIDERS: PCP Internal Medicine
DX: S52.501A Unspecified fracture of the lower end of right radius, initial encounter for closed fracture (principal)
CPT/HCPCS: 99024

== ENCOUNTER → 2024-12-17 14:04 | Outpatient (BNV) | payer MEDICARE, OTHER, SELFPAY | PROVIDERS: Visit Provider Radiology Diagnostic Radiology | DX: M25.531 Pain in right wrist (principal) | CPT/HCPCS: 73110 ==

== ENCOUNTER 2024-12-28 13:45 | Outpatient (AMB) | payer MEDICARE, OTHER, SELFPAY ==
--- OUTSIDE RECORDS SUMMARY | 2024-12-28 13:46 | XMS_ITS | Patient Health Record ---
Author Organization [facility] Address [address] [place] [address] Care Team Providers Care Vice President Sales And Marketing Name Role Phone Huma Garcia Primary Care Provider UnavailKwadwo Redman Unavailable [phone] Black, Katarzyna Unavailable [phone] Julieth Rosa Unavailable [phone] Allergies Allergen (clinical drug ingredient) Drug/Non Drug Allergy documented on EMR Reaction Allergy Type Onset Date Status metronidazole Flagyl Unknown Drug Allergy Act maya Keflex rash Drug Allergy Active Substance with sulfonamide structure and antibacterial mechanism of action (substance) Sulfa Antibiotics Unknown Drug Allergy Active Reason For Referral No Information Medications Medication SIG (Take, Route, Frequency, Duration) Notes Start Date End Date Status Mucinex PRN Active Trileptal Not-Taking CO-Q 10 [place]-3 Fish Oil Not-Taking Zantac Not-Taking Ranitidine Not-Takin g Beconase AQ Not-Taki ng Pantoprazole Sodium 40 MG 1 tablet Orally Once a day Active Folic Acid 400 MCG 1 tablet Orally Once a day Active MiraLax PRN Active Dicyclomine HCl Acti ve Flonase PRN Active ALPRAZolam 20 mg 1x aday Activ e Ammonium Lactate 12 % 1 application to affected area Externally to feet Twice a day for 30 days Active Valsartan 80 MG 1 tablet Orally Once a day Not-Taking Calcium + D Not-Taki ng Flovent HFA Not-Taki ng Azithromycin 250 MG 2 tablets on the first day, then 1 tablet daily for 4 days Orally Once a day for 5 day(s) 11/27/2020 Not-Taking Pristiq 25 MG Orally Once a day Not-Taking Mirtazapine Active Myrbetriq Active Losartan Potassium A ctive Aspir-81 Not-Taking CeleXA Not-Taking Valsartan 40 MG 1 tablet Orally Twice a day for 30 day(s) Not-Taking Pepcid famotidine Not-Takin g PriLOSEC as needed PRN Not-Taking Vitamin D3 Active Immunizations Vaccine Route Administration Date Status [...] Problem Acquired hammer toe of left foot (9390833328970149) Other hammer toe(s) (acquired), left foot (M20.42) Active confirmed Problem Atherosclerosis of [place] arteries of the extremities (647647471311744) Atherosclerosis of [place] artery of both lower extremities, with unspecified presence of clinical manifestation (I70.203) Active confirmed Q7(A), Q8(2B), Q9(1B,2 C) Problem Localized, primary osteoarthritis of the ankle and/or foot (779353833) Arthritis of joint of lesser toe, left (M19.072) Active confirmed Vital Signs Blood pressure diastolic 74 mm Hg 10/11/2024 Height 5 ft 6 in in 10/11/2024 Blood pressure systolic 127 mm Hg 10/11/2024 Weight 163 lbs 10/11/2024 BMI 26.31 kg/m2 10/11/2024 Procedures Procedure Date Ordered Date Performed Result Body Sit e 55797-GYMVLIR NAIL, 6 OR MORE 04/16/2024 N/A 93782-GJFF SKIN LESIONS, OVER 4 04/16/2024 N/A 57218-XGKKAIR NAIL, 6 OR MORE 09/25/2024 N/A 94164-XWJF SKIN LESIONS, OVER 4 09/25/2024 N/A Encounters Encounter Location Date Provider Diagnosis [address] [address] 04/16/2024 Kwadwo Hendricks Skin ulcer of toe of left foot, limited to breakdown of skin L97.521 ; Tinea unguium B35.1 ; Atherosclerosis of [place] artery of both lower extremities, with unspecified presence of clinical manifestation I70.203 ; Pain in right toe(s) M79.674 and Pain in left toe(s) M79.675 [facility] [address] [address] 09/25/2024 Kwadwo Hendricks Atherosclerosis of n ative artery of both lower extremities, with unspecified presence of clinical manifestation I70.203 ; Tinea unguium B35.1 ; Pain in right toe(s) M79.674 and Pain in left toe(s) M79.[address] [address] 10/11/2024 Julieth Barkleya Ischemic ulcer of le ft foot, limited to breakdown of skin L97.521 ; Other hammer toe(s) (acquired), left foot M20.42 ; Pain in left toe(s) M79.675 ; Arthritis of joint of lesser toe, left M19.072 and Subluxation of metatarsophalangeal joint of toe, initial encounter S93.149A [address] [address] 02/13/2024 Kwadwo Ruthie [address] [address] 04/16/2024 Kwadwo Ruthie [address] [address] 10/07/2024 Kwadwo Hendricks [address] [address] 10/09/2024 Kwadwo Ruthie [address] [address] 10/10/2024 Kwadwo Hendricks [address] [place] [address] 12/27/2024 Kwadwo Hendricks Assessments Encounter Date Diagnosis (ICD Code) Assessment Notes Treatment Notes Treatment Clinical Notes Section Notes 04/16/2024 Tinea unguium (ICD-1 0 - B35.1) 04/16/2024 Skin ulcer of toe of left foot, limited to breakdown of skin (ICD-10 - L97.521) 09/25/2024 Atherosclerosis of united [place] artery of both lower extremities, with unspecified presence of clinical manifestation (ICD-10 - I70.203) Q7(A), Q8(2B), Q9(1B,2C) 10/11/2024 Other hammer toe(s) (acquired), left foot (ICD-10 - M20.42) 10/11/2024 Ischemic ulcer of le ft foot, limited to breakdown of skin (ICD-10 - L97.521) 10/11/2024 Pain in left toe(s) (ICD-10 - M79.675) 09/25/2024 Tinea unguium (ICD-1 0 - B35.1) 04/16/2024 Atherosclerosis of united [place] artery of both lower extremities, with unspecified [...] Name Order Date *Uric Acid, Serum 11/27/2020 94719-AYLMXWN NAIL, 6 OR MORE 03/23/2021 76579-RVLADMJ NAIL, 6 OR MORE 11/23/2021 83055-ACUJPWT NAIL, 6 OR MORE 09/08/2020 35275-NCTOPSO NAIL, 6 OR MORE 09/20/2022 22116-FWPXXGM NAIL, 6 OR MORE 01/06/2023 63316-GWKBOHH NAIL, 6 OR MORE 12/02/2011 29550-MJTNRYS NAIL, 6 OR MORE 04/06/2012 70764-LFIMGXH NAIL, 6 OR MORE 07/10/2012 82671-FSOOIIS NAIL, 6 OR MORE 10/10/2014 43301-ORTRIUB NAIL, 6 OR MORE 03/24/2015 38113-UWAZLDY NAIL, 6 OR MORE 07/19/2016 00877-OKEBZHI NAIL, 6 OR MORE 01/10/2017 47716-UIIFSAV NAIL, 6 OR MORE 08/25/2017 31534-CPACZNJ NAIL, 6 OR MORE 11/24/2017 36823-PJEIORT NAIL, 6 OR MORE 02/02/2018 93435-HLVLLWZ NAIL, 6 OR MORE 08/07/2018 69850-BJWIZUO NAIL, 6 OR MORE 04/16/2019 04404-QNDGMQH NAIL, 6 OR MORE 03/20/2020 53619-HMAHTPY NAIL, 6 OR MORE 06/12/2020 45386-NJEIXZQ NAIL, 6 OR MORE 06/13/2023 22751-URGFXVW NAIL, 6 OR MORE 11/10/2023 39347-DRVZLNR NAIL, 6 OR MORE 04/16/2024 72788-FGAEWDL NAIL, 6 OR MORE 09/25/2024 38852-Jgkxdmbo Plate 06/13/2023 07711-Fqfepfkb Plate 06/12/2020 77754-Oqajtlgc Plate 03/20/2020 81085-Savztneq Plate 04/16/2019 89400-Ejyhtyox Plate 09/20/2022 51630-Oreoewpo Plate 09/08/2020 93192-Rtziwome Plate 11/23/2021 64762-Lywchqwc Plate 03/23/2021 00628-Ecbwobgm Plate Each Additional 98381-Qnprozsd Plate Each Additional 06513- Debride <25 sq cm 12/31/2021 49062- Debride <25 sq cm 11/25/2022 10278- Debride <25 sq cm 03/24/2015 91019- Debride <25 sq cm 11/10/2023 57651- Debride <25 sq cm 02/10/2023 03559-FITR SKIN LESIONS, OVER 4 04/16/20 24 79309-BKLR SKIN LESIONS, OVER 4 09/25/19 25 96766-TKFT SKIN LESIONS, OVER 4 06/13/20 23 43615-BCOQ SKIN LESIONS, OVER 4 11/10/19 24 80971-SRXF SKIN LESIONS, OVER 4 01/07/20 23 01875-JHPT SKIN LESIONS, OVER 4 09/20/19 23 32094-SOCY SKIN LESIONS, 2 TO 4 11/24/19 22 47417, F7744-ZKDGH/INJECT, JOINT/BURSA 0 09/08/2020 77183 - Tenotomy, open flexor 12/01/2017 Insurance Providers Payer Name Payer Address Payer Phone Subscriber Number Group Number Insured Name Patient Relationship to Insured Coverage Start Date Coverage End Date Medicare National Govt [employer] [address] [place] [address] [id number] Bella Henley Self - patient is the insured [employer] ([employer]) [address] [place] [address] [id number] Bella Henley Self - patient is the insured Medical (General) History Medical History History ICD Code back, hip, knee pain transfusions reflux measles chicken pox Anxiety disorder Peripheral neuropathy Fractured Pelvis, Left - 06/2023 Surgical History Surgery Date(Month/Year) tonsillectomy appendectomy intestinal blockage 11/2013 Hospitalization History Reason Date(Month/Year) [facility] 06/2023 [facility] [place] Chest pain and Dizziness 06/2023 [facility] [place] stomach pains - Gerd /IBS due to anxiety 01/2021,02/2021 Patient admitted to [facility] x 5 days; diverticulitis 12/2014
--- OUTSIDE RECORDS SUMMARY | 2024-12-28 13:46 | XMS_ITS ---
Author Organization [facility] Address [address] [place] [address] Care Team Providers Care Student Nurse Name Role Phone Jose Lisaregina Primary Care Provider Kwadwo Guillen Unavailable [phone] Allergies Allergen (clinical drug ingredient) Drug/Non Drug Allergy documented on EMR Reaction Allergy Type Onset Date Status metronidazole Flagyl Unknown Drug Allergy Act maya Keflex rash Drug Allergy Active Substance with sulfonamide structure and antibacterial mechanism of action (substance) Sulfa Antibiotics Unknown Drug Allergy Active Medications Medication SIG (Take, Route, Frequency, Duration) Notes Start Date End Date Status Zantac Not-Taking Ranitidine Not-Takin g Flovent HFA Not-Taki ng Azithromycin 250 MG 2 tablets on the first day, then 1 tablet daily for 4 days Orally Once a day for 5 day(s) 11/27/2020 Not-Taking Pristiq 25 MG Orally Once a day Not-Taking Valsartan 40 MG 1 tablet Orally Twice a day for 30 day(s) Not-Taking Pepcid famotidine Not-Takin g PriLOSEC as needed PRN Not-Taking Valsartan 80 MG 1 tablet Orally Once a day Not-Taking Calcium + D Not-Taki ng Mucinex PRN Active Trileptal Not-Taking CO-Q 10 [place]-3 Fish Oil Not-Taking Aspir-81 Not-Taking CeleXA Not-Taking MiraLax PRN Active Dicyclomine HCl Acti ve Flonase PRN Active ALPRAZolam 20 mg 1x aday Activ e Ammonium Lactate 12 % 1 application to affected area Externally to feet Twice a day for 30 days Active Mirtazapine Active Myrbetriq Active Losartan Potassium A ctive Pantoprazole Sodium 40 MG 1 tablet Orally Once a day Active Folic Acid 400 MCG 1 tablet Orally Once a day Active Beconase AQ Not-Taki ng Vitamin D3 Active Encounters Encounter Location Date Provider Diagnosis [facility] [address] [place] [address] 12/27/2024 Kwadwo Hendricks Plan Of Treatment No Information Progress Notes * Bella HENLEY GDOB:1940 (84 yo F)Acc No.[id number]:12/27/2024 Progress Note Patient:?Bella HENLEY Provider:?Kwadwo Hendricks DPM :1940???Age:84 Y???Sex:Female D ate:12/27/2024 Address:[address] [place], [place] [address] Pcp:Huma Garcia Subjective: * Chief Complaints: * ??? * Medical History:?Back, hip, knee pain, Transfusions, Reflux, Measles, Chicken pox, Anxiety disorder, Peripheral neuropathy, Fractured Pelvis, Left - 06/2023. * Medications:?Taking Vitamin D3 , Taking Mirtazapine , Taking [...] Mucinex , Notes to Pharmacist: PRN, Not-Taking/PRN Trileptal , Not-Taking/PRN CO-Q 10 [place]-3 Fish Oil , Not-Taking/PRN Aspir-81 , Not- Taking/PRN CeleXA , Not-Taking/PRN Valsartan 40 MG Tablet [...] , Not-Taking/PRN Ranitidine , Not-Taking/PRN Beconase AQ * Allergies:?Keflex: rash, Sul fa Antibiotics, Flagyl. Objective: * Vitals:? Assessment: Plan: * Treatment: * Images: * The named appointment provid er may or may not be the originator of this progress note, and it is not deemed complete until electronically signed by the appointment provider. Sign off status: Pending * Provider:?Kwadwo Hendricks DPM Date:?2024 Generated for José Luis bryan/Elizabeth/Mackenzieitting on:?12/28/2024 01:46 PM EDT
--- OUTSIDE RECORDS SUMMARY | 2024-12-28 13:47 | XMS_ITS | Clinical Summary ---
Author Organization [facility] it Address [address] [place] [address] Care Team Providers Care Lens Grinder Name Role Phone Unavailable Primary Care Provider [...] Documents on File Type Date Recorded Patient Geoscience Technician Expl anation Health Care Decision (hx) 09/07/2023 HE ALTH CARE PROXY Health Care Decision (hx) 03/03/2023 HE ALTH CARE PROXY
--- OUTSIDE RECORDS SUMMARY | 2024-12-28 13:47 | XMS_ITS ---
Author Organization [facility] Address [address] [place] [address] Care Team Providers Care Mine Patrol Name Role Phone Huma aGrcia Primary Care Provider UnavailKwadwo Redman Unavailable [phone] Katarzyna Richter [phone] REASON FOR VISIT seen soon Encounters Encounter Location Date Provider Diagnosis [address] [address] 12/19/2024 Katarzyna Richter Plan Of Treatment No Information Progress Notes * Bella HENLEY GDOB:1940 (84 yo F)Acc No.[id number]:12/19/2024 Progress Note Patient:Bella WELCH Provider:?Katarzyna Richter DPM :1940???Age:84 Y???Sex:Female D ate:12/19/2024 Address:[address] [place], [place] [address] Pcp:Huma Garcia Subjective: * Chief Complaints: * ???1. Seen soon. * Medical History:? Objective: * Vitals:? Assessment: Plan: * Treatment: * Images: * The named appointment provid er may or may not be the originator of this progress note, and it is not deemed complete until electronically signed by the appointment provider. Sign off status: Pending * Provider:Leonel Richter DPM Date:?2024 Generated for José Luis bryan/Elizabeth/Marquise on:?12/28/2024 01:46 PM EDT
--- OUTSIDE RECORDS SUMMARY | 2024-12-28 13:47 | XMS_ITS ---
Author Organization [facility] Address [address] [place] [address] Care Team Providers Care Fleece Tier Name Role Phone Huma Garcia Primary Care Provider Kwadwo Guillen Unavailable [phone] REASON FOR VISIT same day cx 12/27/24 Encounters Encounter Location Date Provider Diagnosis [facility] [address] [place] [address] 12/27/2024 Kwadwo Hendricks Plan Of Treatment No Information Progress Notes * KALE Bella GDOB:1940 (84 yo F)Acc No.[id number]:12/27/2024 Patient:?Bella HENELY :1940???Age:84 Y???Sex:Female Address:[address] [place] [address], * true * Date:? Generated for Printi irvin/Elizabeth/eTransmitting on:?12/28/2024 01:46 PM EDT
--- NOTE | 2024-12-28 13:56 | AM.OFFWIN_ITS ---
Intake Vital Signs 12/28/24 14:05 Height 5 ft 6 in Weight 174 lb BMI 28.1 BP 138/80 Blood Pressure Location Lt brachial Position Sitting Respiration 16 Temp 98.0 F Temp Source Oral Intake Visit Reasons: EP-Constipation Intake Note: Pt is here today c/o constipation Patient Tobacco Use Status: Former Tobacco user Allergies buspirone Allergy (Intermediate, Verified 12/28/24 14:07) Rash Sulfa (Sulfonamide Antibiotics) Allergy (Intermediate, Verified 12/28/24 14:07) RASH cefuroxime Allergy (Unknown, Verified 12/28/24 14:07) Unknown garlic [GARLIC] Allergy (Unknown, Verified 12/28/24 14:07) PER H&P metronidazole [From FLAGYL] Allergy (Unknown, Verified 12/28/24 14:07) OCULAR MIGRAINES penicillamine Allergy (Unknown, Verified 12/28/24 14:07) Unknown ciprofloxacin Adverse Reaction (Intermediate, Verified 12/28/24 14:07) neuropathic pain lisinopril Adverse Reaction (Intermediate, Verified 12/28/24 14:07) Cough nitrofurantoin Adverse Reaction (Mild, Verified 12/28/24 14:07) GI side effects cefuroxime Allergy (Intermediate, Uncoded 12/28/24 14:07) wheezy cough/itch flagyl Allergy (Unknown, Uncoded 12/28/24 14:07) Unknown From KEFLEX Allergy (Unknown, Uncoded 12/28/24 14:07) RASH Metoprolol Tartrate Allergy (Unknown, Uncoded 12/28/24 14:07) Unknown Sulfacet-R Allergy (Unknown, Uncoded 12/28/24 14:07) Unknown Medication List - Last Reconciled 12/28/24 by Chacho Mauricio MD acetaminophen (Tylenol) 325 mg PO Q4H PRN albuterol sulfate 90 mcg/actuation 2 puffs inhalation Q4-6H PRN alprazolam 0.25 mg PO BID cholecalciferol (vitamin D3) (Vitamin D3) 50 mcg PO DAILY citalopram (Celexa) 20 mg PO DAILY clopidogrel 75 mg PO QAM fluticasone propionate 50 mcg/actuation sprays intranasal folic acid 0.4 mg PO DAILY losartan 25 mg PO DAILY 90 days mirabegron ER (Myrbetriq) 25 mg PO DAILY 90 days ondansetron 4 mg PO Q6H PRN pantoprazole (Protonix) 40 mg PO DAILY HPI EP-Constipation HPI Details Complaints of worsened to constipation. No nausea or vomiting. She is still passing flatus Has used MiraLax in the past with good affect. Patient does not like to drink water and does not remember to drink water Also has had ongoing sore throat. Has used nystatin recently for thrush Also had episodes of reflux while sleeping. [facility] Medical History (Updated 12/28/24 @ 14:54 by Chacho Mauricio MD) GERD (gastroesophageal reflux disease) Pulmonary nodule Chest pain URI (upper respiratory infection) HTN (hypertension) Cough Heart palpitations Constipation LLQ abdominal pain Anxiety Breast cancer screening Breast pain, left Elevated vitamin B12 level Neck muscle spasm Strain of neck muscle Low back pain Pubic ramus fracture Sore throat Skin tear of upper arm without complication Head injury, acute, without loss of consciousness Fall Dizziness Medication noncompliance due to cognitive impairment RLQ abdominal pain Sinusitis Flu syndrome Precordial chest pain Atypical chest pain Cold intolerance Former smoker Abnormal lung sounds Fever Bilateral calf pain Nausea Left lower quadrant abdominal pain Dysuria Fatigue Lower extremity weakness Aortic stenosis Obstipation Dark stools Lower abdominal pain Gastroenteritis Neck pain on right side Back pain Rhinitis Elevated BP without diagnosis of hypertension Non-rheumatic aortic stenosis Diverticulitis GERD (gastroesophageal reflux disease) Cat scratch Cat bite Epigastric discomfort Diarrhea Nausea Viral syndrome Neuropathy Arthritis GERD (gastroesophageal reflux disease) HTN (hypertension) Irritable bowel Heart murmur Surgical History S/P TAVR (transcatheter aortic valve replacement) Hx of esophagogastroduodenoscopy Hx of colonoscopy History of tonsillectomy History of appendectomy Family History Father No problems noted. Mother No problems noted. Social History Household Members: Children Housing: House Are you a primary day care home mother to a significant other at home: No Do you presently have visiting nurse or other home services: No Alcohol intake: former Patient Tobacco Use Status: Former Tobacco user Tobacco use type: Cigarette e-Cigarette/Vaping Use: Never Used Second Hand Smoke Exposure: Yes Advance Directives Date on File: 03/28/23 service: No Current occupational status: retired Cognitive needs: No Hearing needs: No Vision needs: Yes (glasses) Review of Systems Const Details: See HPI Physical Exam Vital Signs: Last Vital Signs Temp 98.0 F 12/28/24 14:05 Resp 16 12/28/24 14:05 BP 138/80 12/28/24 14:05 BMI result Body Mass Index 28.1 Const General: no acute distress and well developed Nutritional Appearance: well nourished Orientation/consciousness: patient oriented x3 HEENT Other: No erythema No evidence of thrush Head: Yes normocephalic and Yes atraumatic Eyes General: appearance normal, both eyes and all related structures Pupils: Equal, round and reactive pupils present EOM: EOMs intact bilaterally Resp Effort & Inspection: normal respiratory effort Auscultation: clear to auscultation bilaterally Cardio Rate: regular rate Rhythm: regular rhythm Heart sounds: S1 normal heart sound present, S2 normal heart sound present, no gallops, no murmurs and no rubs GI Other: Minimal distention. Normal bowel sounds No tenderness Neuro General: patient oriented x3 and gait normal Cranial nerves: Yes Equal, round and reactive pupils present Psych Affect: normal affect Assessment & Plan Assessment & Plan (1) Constipation: Code(s): K59.00 - Constipation, unspecified Qualifiers: Constipation type: slow transit constipation Qualified Code(s): K59.01 - Slow transit constipation Plan: History of constipation and currently having worsened issues with constipation. She is still passing flatus Patient has issues with forgetting to drink water. Discussed with her son and patient: Reminder strategies with sticky notes on bathroom mirror and other places. Also using timer on stove to remind her to drink more water. Try to get about 64 oz of water per day Will give her a script for MiraLax again (2) GERD (gastroesophageal reflux disease): Code(s): K21.9 - Gastro-esophageal reflux disease without esophagitis Qualifiers: Esophagitis presence: without esophagitis Qualified Code(s): K21.9 - Gastro-esophageal reflux disease without esophagitis Plan: Recent episodes of GERD while lying down and has a sore throat. Also had recent thrush though this appears resolved She takes Protonix but I will give her a script for famotidine at bedtime times 2 weeks. She can discuss with her PCP if needing further intervention. Medications: New polyethylene glycol 3350 (Miralax) 17 grams PO DAILY 14 days 14 ea 0RF famotidine 20 mg PO BEDTIME 14 days 14 tabs 0RF Coding Level of Care Code Est Pt Level 3 (01577) Diagnoses Slow transit constipation K59.01 Constipation type: slow transit constipation Gastroesophageal reflux disease without esophagitis K21.9 Esophagitis presence: without esophagitis
[2024-12-28 14:05] VITALS: BP 138/80; RESP 16; TEMP 36.7; BMI 28.1
== END 2024-12-28 14:55 | disposition home or self-care (01) ==
LOC: HO.HMCWIC 13:45
PROVIDERS: PCP Internal Medicine; Visit Provider Family Medicine
DX: K59.01 Slow transit constipation (principal); K21.9 Gastro-esophageal reflux disease without esophagitis

== ENCOUNTER → 2024-12-28 13:45 | Outpatient (BNVA) | payer MEDICARE, OTHER, SELFPAY | PROVIDERS: PCP Internal Medicine; Visit Provider Family Medicine | DX: K59.01 Slow transit constipation (principal); K21.9 Gastro-esophageal reflux disease without esophagitis | CPT/HCPCS: 99212 ==

== ENCOUNTER 2025-01-02 17:35 | Emergency (ER) | payer MEDICARE, OTHER, SELFPAY ==
--- NOTE | ~2025-01-02 | CT_ITS ---
CLINICAL HISTORY: diverticultiis CT abdomen and pelvis with contrast Comparison: CT/NM/SR - CT ABDOMEN PELVIS W IV CON - 05/04/24 18:34 EDT Findings: Mild bibasilar atelectasis. Hepatic cysts. Atrophic pancreas. Spleen, gallbladder, and adrenal glands are within normal limits. No hydronephrosis. Symmetric contrast enhancement of the kidneys. Nonobstructing left renal calculi. Colonic diverticulosis without acute inflammation. No bowel obstruction, pneumatosis or pneumoperitoneum. Aortic atherosclerosis. Stable infrarenal aortic aneurysm measuring 3.3 cm. Pelvic contents unremarkable. Normal appendix. Chronic fracture of the left inferior pubic ramus. Osteopenia. Degenerative changes of the spine. IMPRESSION: 1. No acute intraabdominal or pelvic pathology. 2. Colonic diverticulosis without acute inflammation. This document has been electronically signed by: Joe Pruitt MD on 01/03/2025 00:45:22
[2025-01-02 17:45] VITALS: BP 95/53; PULSE 76; RESP 14; TEMP 36.8; O2SAT 96; BMI 27.4
--- NOTE | 2025-01-02 18:32 | ED_ITS ---
HPI - General Adult General Chief complaint: Nausea/Vomiting/Diarrhea Stated complaint: abd pain,loose stool Time Seen by Provider: 01/02/25 23:25 Source: patient Limitations: no limitations History of Present Illness ED Provider: Mel Martin PA-C HPI narrative: 84-year-old female with a history of GERD, hypertension, status post TAVR, COPD, anxiety, cognitive impairment, CVA and TIA, arthritis, IBS who presents with intermittent loose stools of unclear duration. Patient has been having intermittent abdominal cramping with random episodes of loose stool. She states she notices the loose stool when she wipes after having a bowel movement. Denies nausea vomiting or fever. Denies recent use of antibiotics or hospitalization. No recent travel. Related Data Home Medications ?Medication ?Instructions ?Recorded ?Confirmed folic acid 400 mcg tablet 0.4 mg PO DAILY 11/23/23 12/28/24 alprazolam 0.25 mg tablet 0.25 mg PO BID 03/28/24 12/28/24 fluticasone propionate 50 spray intranasal 08/23/24 12/28/24 mcg/actuation nasal spray,suspension citalopram 20 mg tablet (Celexa) 20 mg PO DAILY 11/28/24 12/28/24 Previous Rx's ?Medication ?Instructions ?Recorded acetaminophen 325 mg capsule 325 mg PO Q4H PRN pain #30 caps 12/17/23 (Tylenol) losartan 25 mg tablet 25 mg PO DAILY 90 days #90 tabs 08/19/24 albuterol sulfate 90 mcg/actuation 2 puff inhalation Q4-6H PRN 09/06/24 aerosol inhaler shortness of breath or wheezing #1 ea mirabegron 25 mg tablet,extended 25 mg PO DAILY 90 days #90 tabs 11/01/24 release 24 hr (Myrbetriq) ondansetron 4 mg disintegrating 4 mg PO Q6H PRN nausea and 11/18/24 tablet vomiting #14 tabs cholecalciferol (vitamin D3) 50 50 mcg PO DAILY #90 tabs 12/09/24 mcg (2,000 unit) tablet (Vitamin D3) pantoprazole 40 mg tablet,delayed 40 mg PO DAILY #90 tabs 12/15/24 release (Protonix) famotidine 20 mg tablet 20 mg PO BEDTIME 14 days #14 tabs 12/28/24 polyethylene glycol 3350 17 gram 17 g PO DAILY 14 days #14 ea 12/28/24 oral powder packet (Miralax) clopidogrel 75 mg tablet 75 mg PO QAM #90 tabs 12/30/24 dicyclomine 20 mg tablet 20 mg PO BID PRN diarrhea #7 tabs 01/03/25 Allergies Allergy/AdvReac Type Severity Reaction Status Date / Time buspirone Allergy Intermediate Rash Verified 01/02/25 17:46 Sulfa (Sulfonamide Allergy Intermediate RASH Verified 01/02/25 17:46 Antibiotics) cefuroxime Allergy Unknown Unknown Verified 01/02/25 17:46 garlic [GARLIC] Allergy Unknown PER H&P Verified 01/02/25 17:46 metronidazole [From FLAGYL] Allergy Unknown OCULAR Verified 01/02/25 17:46 MIGRAINES penicillamine Allergy Unknown Unknown Verified 01/02/25 17:46 ciprofloxacin AdvReac Intermediate neuropathic Verified 01/02/25 17:46 pain lisinopril AdvReac Intermediate Cough Verified 01/02/25 17:46 nitrofurantoin AdvReac Mild GI side Verified 01/02/25 17:46 effects cefuroxime Allergy Intermediate wheezy Uncoded 12/28/24 14:07 cough/itch flagyl Allergy Unknown Unknown Uncoded 12/28/24 14:07 From KEFLEX Allergy Unknown RASH Uncoded 12/28/24 14:07 Metoprolol Tartrate Allergy Unknown Unknown Uncoded 12/28/24 14:07 Sulfacet-R Allergy Unknown Unknown Uncoded 12/28/24 14:07 Review of Systems 2 Review of Systems: Yes all other systems are reviewed and are negative Constitutional: Constitutional: Denies fatigue and Denies fever(s) Cardiovascular: Cardiovascular: Denies chest pain and Denies dyspnea Respiratory: Respiratory: Denies cough and Denies dyspnea Gastrointestinal: Gastrointestinal: Reports abdominal pain, Reports diarrhea, Denies nausea and Denies vomiting Endocrine: Endocrine: Denies fatigue PMFSH Past Medical History Attestation statement: The following information was validated with the patient. Medical History (Updated 01/03/25 @ 02:17 by ROMAINE Shelton) GERD (gastroesophageal reflux disease) Pulmonary nodule Chest pain URI (upper respiratory infection) HTN (hypertension) Cough Heart palpitations Constipation LLQ abdominal pain Anxiety Breast cancer screening Breast pain, left Elevated vitamin B12 level Neck muscle spasm Strain of neck muscle Low back pain Pubic ramus fracture Sore throat Skin tear of upper arm without complication Head injury, acute, without loss of consciousness Fall Dizziness Medication noncompliance due to cognitive impairment RLQ abdominal pain Sinusitis Flu syndrome Precordial chest pain Atypical chest pain Cold intolerance Former smoker Abnormal lung sounds Fever Bilateral calf pain Nausea Left lower quadrant abdominal pain Dysuria Fatigue Lower extremity weakness Aortic stenosis Obstipation Dark stools Lower abdominal pain Gastroenteritis Neck pain on right side Back pain Rhinitis Elevated BP without diagnosis of hypertension Non-rheumatic aortic stenosis Diverticulitis GERD (gastroesophageal reflux disease) Cat scratch Cat bite Epigastric discomfort Diarrhea Nausea Viral syndrome Neuropathy Arthritis GERD (gastroesophageal reflux disease) HTN (hypertension) Irritable bowel Heart murmur Surgical History S/P TAVR (transcatheter aortic valve replacement) Hx of esophagogastroduodenoscopy Hx of colonoscopy History of tonsillectomy History of appendectomy Family History Family History Father No problems noted. Mother No problems noted. Social History Social History Household Members: Children Housing: House Are you a primary child caregiver private home to a significant other at home: No Do you presently have visiting nurse or other home services: No Alcohol intake: former Patient Tobacco Use Status: Former Tobacco user Tobacco use type: Cigarette e-Cigarette/Vaping Use: Never Used Second Hand Smoke Exposure: Yes Advance Directives Date on File: 03/28/23 service: No Current occupational status: retired Cognitive needs: No Hearing needs: No Vision needs: Yes (glasses) Physical Exam ED Vital Signs: Vital Signs - 24 hr 01/02/25 17:45 01/02/25 21:25 01/03/25 00:44 Temperature 98.3 F 98.6 F 97.9 F Pulse Rate 76 92 88 Respiratory Rate 14 12 16 Blood Pressure 95/53 L 179/79 H 155/77 H Pulse Oximetry 96 94 96 Oxygen Delivery Method Room Air Room Air Room Air 01/03/25 02:05 01/03/25 02:30 Temperature 98.5 F 98.5 F Pulse Rate 87 87 Respiratory Rate 16 16 Blood Pressure 118/73 118/73 Pulse Oximetry 97 97 Oxygen Delivery Method Room Air Room Air BMI result Body Mass Index 27.4 Const Other: Alert Orientation/consciousness: patient oriented x3 Resp Effort & Inspection: normal respiratory effort Cardio Other: Normal peripheral perfusion GI Other: Abdomen is soft, obese, nontender no guarding Skin Other: Warm dry no rash Neuro General: patient oriented x3, gait normal, no focal motor deficits and CN's II- XI intact bilaterally Psych Other: Cooperative Course Course Course Narrative: RME: 84 yold female presents to the ED for abdominal discomfrot and multiple episodes of diarreha describes as loos stool. BLood pressure soft. Patient is well appearing. Labs ordered. Medications Administered Discontinued Medications Generic Name Dose Route Start Last Admin Trade Name Freq PRN Reason Stop Dose Admin Sodium Chloride 1,000 mls @ 999 mls/hr 01/02/25 23:30 01/03/25 01:09 Ns IV 01/03/25 00:30 Infused .Q1H1M URSULA Infusion Iohexol 85 ml 01/03/25 00:01 01/03/25 00:02 Iohexol 350 Mg/Ml 100 Ml Infus..Btl IV 01/03/25 00:02 85 ml ONCE ONE Administration Ondansetron HCl 4 mg 01/02/25 23:25 01/03/25 00:08 Ondansetron Hcl 4 Mg/2 Ml Vial IVPUSH 01/02/25 23:26 4 mg ONCE ONE Administration Medical Decision Making Medical Decision Making [facility] Narrative: 84-year-old female with a history of GERD, hypertension, status post TAVR, COPD, anxiety, cognitive impairment, CVA and TIA, arthritis, IBS who presents with intermittent loose stools of unclear duration. Patient has been having intermittent abdominal cramping with random episodes of loose stool. She states she notices the loose stool when she wipes after having a bowel movement. Denies nausea vomiting or fever. Denies recent use of antibiotics or hospitalization. No recent travel. No sick contacts with similar symptoms. Problem: Age, anxiety, cognitive impairment, IBS History: Per patient I have considered the following differential diagnoses: IBS, viral gastroenteritis, C diff, traveler's diarrhea , diverticulitis Plan: Screening labs and a CT scan of the abdomen were already obtained from triage, everything is negative. The patient was having random intermittent symptoms, she has no risk for C diff or traveler's diarrhea. And again the CT scan is negative. This is likely her IBS. She has no sick contacts with same symptoms. We will send with home care instructions. We will give her a script for dicyclomine I have independently reviewed the following tests: Labs: No leukocytosis, not anemic, no electrolyte abnormality noted CT abdomen and pelvis:IMPRESSION: 1. No acute intraabdominal or pelvic pathology. 2. Colonic diverticulosis without acute inflammation. Lab Data 01/02/25 18:59 01/02/25 18:59 Labs: Lab Results 01/02/25 Range/Units 18:59 WBC 3.6 L (4.8-10.8) X10*3/uL RBC 3.03 L (4.20-5.50) X10*6/uL Hgb 9.0 L (12.0-16.0) g/dl Hct 27.7 L (37.0-47.0) % MCV 91.4 (80.0-98.0) fL MCH 29.7 (27.0-33.0) pg MCHC 32.5 (31.0-35.0) g/dl RDW 15.1 (11.0-16.0) % Plt Count 120 L (160-400) X10*3/uL MPV 11.5 (9.4-12.3) fL Immature Gran % (Auto) 0.3 (0.0-0.4) % Neut % (Auto) 73.9 H (45-73) % Lymph % (Auto) 15.1 L (20-40) % [place] % (Auto) 8.8 (2-11) % Eos % (Auto) 1.4 (0-4) % Baso % (Auto) 0.5 (0-2) % Lymph # (Auto) 0.6 L (1.2-4.9) X10*3/uL [place] # (Auto) 0.3 (0.1-1.2) X10*3/uL Eos # (Auto) 0.1 (0.0-0.4) X10*3/uL Baso # (Auto) 0.0 (0.0-0.2) X10*3/uL Abs Immat Gran (auto) 0.01 (0.00-0.03) X10*3/uL Absolute Neuts (auto) 2.7 (2.0-8.3) x10*3/uL Absolute Nucleated RBC 0.000 (0.0-0.012) X10*3/uL Nucleated RBC % (auto) 0.0 (0.0-0.2) /100WBC Smear Tech's Comments VERIFIED Sodium 138 (135-145) mmol/L Potassium 4.1 (3.3-5.1) mmol/L Chloride 102 (96-108) mmol/L Carbon Dioxide 25 (22-29) mmol/L Anion Gap 15 (12-20) BUN 22 H (9-16) mg/dL Creatinine 0.99 (0.5-1.4) mg/dL Estim Creat Clear Calc 44.3 Estimated GFR 53 Random Glucose 115 (60-115) mg/dL Calcium 10.1 (8.4-10.2) mg/dL Magnesium 2.1 (1.6-2.6) mg/dL Total Bilirubin 0.6 (0.0-1.0) mg/dL AST 25 (5-31) U/L ALT 12 (0-31) U/L Alkaline Phosphatase 92 (39-117) U/L Total Protein 7.0 (6.5-8.0) g/dL Albumin 4.2 (3.5-5.0) g/dL Influenza Type A (PCR) NEGATIVE (Negative) Influenza Type B (PCR) NEGATIVE (Negative) RSV RNA Qual (PCR) NEGATIVE (Negative) SARS-CoV-2 RNA (RT-PCR) NEGATIVE (Negative) Discharge Plan Discharge Clinical Impression: Diarrhea Patient Disposition: Home, Self-Care Instructions: Chronic Diarrhea (ED) Additional Instructions: All of your screening labs were completely normal. The CT scan of your abdomen was completely normal. Use the dicyclomine as needed when you have loose stool. You should also be taking an [id number] probiotic, this will help with your loose stools. Follow up with your primary care provider. Prescriptions: New dicyclomine 20 mg tablet 20 mg PO BID PRN (Reason: diarrhea) Qty: 7 0RF No Action losartan 25 mg tablet 25 mg PO DAILY 90 Days Qty: 90 1RF albuterol sulfate 90 mcg/actuation HFA aerosol inhaler 2 puff inhalation Q4-6H PRN (Reason: shortness of breath or wheezing) Qty: 1 2RF ondansetron 4 mg tablet,disintegrating 4 mg PO Q6H PRN (Reason: nausea and vomiting) Qty: 14 0RF cholecalciferol (vitamin D3) [Vitamin D3] 50 mcg (2,000 unit) tablet 50 mcg PO DAILY Qty: 90 3RF pantoprazole [Protonix] 40 mg tablet,delayed release (DR/EC) 40 mg PO DAILY Qty: 90 0RF clopidogrel 75 mg tablet 75 mg PO QAM Qty: 90 0RF folic acid 400 mcg Tablet 0.4 mg PO DAILY acetaminophen [Tylenol] 325 mg capsule 325 mg PO Q4H PRN (Reason: pain) Qty: 30 0RF alprazolam 0.25 mg Tablet 0.25 mg PO BID fluticasone propionate 50 mcg/actuation spray,suspension intranasal mirabegron [Myrbetriq] 25 mg tablet extended release 24 hr 25 mg PO DAILY 90 Days Qty: 90 3RF citalopram [Celexa] 20 mg tablet 20 mg PO DAILY polyethylene glycol 3350 [Miralax] 17 gram powder in packet 17 g PO DAILY 14 Days Qty: 14 0RF famotidine 20 mg tablet 20 mg PO BEDTIME 14 Days Qty: 14 0RF Interventions: ED Discharge Assessment Last Done: 01/03/25 02:30 Discharge Date/Time: 01/03/25 02:30 Print Language: Arabic
[2025-01-02 19:15] LABS: PLT CLUMP 1; SCAN SMEAR FLAG 1
[2025-01-02 19:17] LABS: Basophils Percent Auto 0.5 % (0-2); Eosinophils Absolute Auto 0.1 X10*3/uL (0.0-0.4); Eosinophils Percent Auto 1.4 % (0-4); Hematocrit 27.7 % (37.0-47.0); Imm Gran Abs Auto 0.01 X10*3/uL (0.00-0.03); Imm Gran Pct Auto 0.3 % (0.0-0.4); Lymphocytes Absolute Auto 0.6 X10*3/uL (1.2-4.9); Lymphocytes Percent Auto 15.1 % (20-40); MANUAL DIFF FLAG SCAN; Mean Corpuscular HGB Conc 32.5 g/dl (31.0-35.0); Mean Corpuscular Hemoglobin 29.7 pg (27.0-33.0); Mean Corpuscular Volume 91.4 fL (80.0-98.0); Mean Platelet Volume 11.5 fL (9.4-12.3); Monocytes Absolute Auto 0.3 X10*3/uL (0.1-1.2); Monocytes Percent Auto 8.8 % (2-11); Neutrophils Absolute Auto 2.7 x10*3/uL (2.0-8.3); Neutrophils Percent Auto 73.9 % (45-73); Red Blood Count 3.03 X10*6/uL (4.20-5.50); Red Cell Distribution Width 15.1 % (11.0-16.0)
[2025-01-02 19:20] LABS: Alanine Aminotransferase 12 U/L (0-31); Albumin Level 4.2 g/dL (3.5-5.0); Alkaline Phosphatase 92 U/L (39-117); Anion Gap 15 (12-20); Aspartate Amino Transferase 25 U/L (5-31); Bilirubin Total 0.6 mg/dL (0.0-1.0); Blood Urea Nitrogen 22 mg/dL (9-16); Calcium 10.1 mg/dL (8.4-10.2); Carbon Dioxide 25 mmol/L (22-29); Chloride 102 mmol/L (96-108); Creatinine Clr Calc Pharmacy 44.3; Estimated Glomerular Filt Rate 53; Glucose Random 115 mg/dL (60-115); Magnesium 2.1 mg/dL (1.6-2.6); Potassium 4.1 mmol/L (3.3-5.1); Sodium 138 mmol/L (135-145)
[2025-01-02 19:40] LABS: Platelet Count 120 X10*3/uL (160-400); SLIDE REVIEW VERIFIED; White Blood Count 3.6 X10*3/uL (4.8-10.8)
[2025-01-02 19:43] LABS: Influenza A PCR NEGATIVE (Negative); Influenza B PCR NEGATIVE (Negative); Resp Syncy Virus RNA Qual PCR NEGATIVE (Negative); SARS COV2 PCR INHOUSE NEGATIVE (Negative)
[2025-01-02 21:25] VITALS: BP 179/79; PULSE 92; RESP 12; TEMP 37; O2SAT 94
[2025-01-03] MEDS: iohexoL 350 MG/ML 100 ML INFUS..BTL 85 ML IV (00:02)
[2025-01-03] MEDS: 0.9 % Sodium Chloride 1,000 ML 999 ML IV (00:08)
[2025-01-03] MEDS: ondansetron HCL 4 MG/2 ML VIAL IVPUSH (00:08)
[2025-01-03 00:44] VITALS: BP 155/77; PULSE 88; RESP 16; TEMP 36.6; O2SAT 96
[2025-01-03 02:05] VITALS: BP 118/73; PULSE 87; RESP 16; TEMP 36.9; O2SAT 97
[2025-01-03 02:30] VITALS: BP 118/73; PULSE 87; RESP 16; TEMP 36.9; O2SAT 97
== END 2025-01-03 02:30 | disposition home or self-care (01) ==
PROVIDERS: Physician Assistant; Emergency Provider Internal Medicine; PCP Internal Medicine
DX: K57.32 Diverticulitis of large intestine without perforation or abscess without bleeding (principal); R11.2 Nausea with vomiting, unspecified; R19.7 Diarrhea, unspecified; Z79.899 Other long term (current) drug therapy; Z03.818 Encounter for observation for suspected exposure to other biological agents ruled out; Z86.73 Personal history of transient ischemic attack (TIA), and cerebral infarction without residual deficits; Z87.891 Personal history of nicotine dependence
CPT/HCPCS: 0241U; 74177; 80053; 83735; 85025; 96361; 96374; 99284; 99285; J2405; Q9967

== ENCOUNTER → 2025-01-02 23:25 | Outpatient (BNV) | payer MEDICARE, OTHER, SELFPAY | PROVIDERS: Emergency Provider Internal Medicine; PCP Internal Medicine; Visit Provider Radiology Diagnostic Radiology | DX: K57.30 Diverticulosis of large intestine without perforation or abscess without bleeding (principal) | CPT/HCPCS: 74177 ==

== ENCOUNTER 2025-01-07 12:43 | Outpatient (AMB) | payer MEDICARE, OTHER, SELFPAY ==
[2025-01-07 12:46] VITALS: BP 140/76; PULSE 108; O2SAT 92; BMI 27.4
--- NOTE | 2025-01-07 12:46 | MHC.PC.OV ---
Vital Signs 01/07/25 12:46 Height 5 ft 6 in Weight 170 lb BMI 27.4 BP 140/76 H Blood Pressure Location Lt brachial Position Sitting Pulse 108 H Pulse Source Pulse Oximeter Pulse Oximetry (%) 92 Oxygen Delivery Method Room Air Intake Visit Reasons: [facility] - Dark Stool Allergies buspirone Allergy (Intermediate, Verified 01/07/25 12:46) Rash Sulfa (Sulfonamide Antibiotics) Allergy (Intermediate, Verified 01/07/25 12:46) RASH cefuroxime Allergy (Unknown, Verified 01/07/25 12:46) Unknown garlic [GARLIC] Allergy (Unknown, Verified 01/07/25 12:46) PER H&P metronidazole [From FLAGYL] Allergy (Unknown, Verified 01/07/25 12:46) OCULAR MIGRAINES penicillamine Allergy (Unknown, Verified 01/07/25 12:46) Unknown ciprofloxacin Adverse Reaction (Intermediate, Verified 01/07/25 12:46) neuropathic pain lisinopril Adverse Reaction (Intermediate, Verified 01/07/25 12:46) Cough nitrofurantoin Adverse Reaction (Mild, Verified 01/07/25 12:46) GI side effects cefuroxime Allergy (Intermediate, Uncoded 01/07/25 12:46) wheezy cough/itch flagyl Allergy (Unknown, Uncoded 01/07/25 12:46) Unknown From KEFLEX Allergy (Unknown, Uncoded 01/07/25 12:46) RASH Metoprolol Tartrate Allergy (Unknown, Uncoded 01/07/25 12:46) Unknown Sulfacet-R Allergy (Unknown, Uncoded 01/07/25 12:46) Unknown Tobacco use date assessed: 11/01/24 Fall risk assessment: No Falls in past year Last assessed Fall Risk: 01/07/25 Dental Screening Dental Screen Date: 09/12/24 [facility] Medical History (Updated 01/07/25 @ 13:03 by Huma Garcia MD) Acute diverticulitis LLQ abdominal pain Contusion of right lower leg Otitis media Cough Bronchitis Pelvic pain Chronic cough Elevated IgE level Status post fall Annual wellness visit Hip pain Post-menopausal URI (upper respiratory infection) Sensation of pressure in bladder area Chest pain Elevated blood sugar Oral candidiasis GERD (gastroesophageal reflux disease) Pulmonary nodule HTN (hypertension) Heart palpitations Constipation Breast cancer screening Breast pain, left Elevated vitamin B12 level Neck muscle spasm Strain of neck muscle Low back pain Pubic ramus fracture Sore throat Skin tear of upper arm without complication Head injury, acute, without loss of consciousness Fall Dizziness Medication noncompliance due to cognitive impairment RLQ abdominal pain Sinusitis Flu syndrome Precordial chest pain Atypical chest pain Cold intolerance Former smoker Abnormal lung sounds Fever Bilateral calf pain Nausea Left lower quadrant abdominal pain Dysuria Fatigue Lower extremity weakness Aortic stenosis Obstipation Dark stools Lower abdominal pain Gastroenteritis Neck pain on right side Back pain Rhinitis Elevated BP without diagnosis of hypertension Non-rheumatic aortic stenosis Diverticulitis GERD (gastroesophageal reflux disease) Cat scratch Cat bite Epigastric discomfort Diarrhea Neuropathy Arthritis GERD (gastroesophageal reflux disease) HTN (hypertension) Irritable bowel Heart murmur Surgical History (Updated 01/07/25 @ 13:03 by Huma Garcia MD) S/P AVR S/P TAVR (transcatheter aortic valve replacement) Hx of esophagogastroduodenoscopy Hx of colonoscopy History of tonsillectomy History of appendectomy Family History Father No problems noted. Mother No problems noted. Social History Household Members: Children Housing: House Are you a primary daycare provider to a significant other at home: No Do you presently have visiting nurse or other home services: No Alcohol intake: former Patient Tobacco Use Status: Former Tobacco user Tobacco use type: Cigarette e-Cigarette/Vaping Use: Never Used Second Hand Smoke Exposure: Yes Advance Directives Date on File: 03/28/23 service: No Current occupational status: retired Cognitive needs: No Hearing needs: No Vision needs: Yes (glasses) Questionnaire PHQ-9 Over the last 2 weeks, how often have you been bothered by any of the following problems? 1. Little interest or pleasure in doing things: several days 2. Feeling down, depressed, or hopeless: several days 3. Trouble falling or staying asleep, or sleeping too much: several days 4. Feeling tired or having little energy: several days 5. Poor appetite or overeating: nearly every day 6. Feeling bad about yourself - or that you are a failure or have let yourself or your family down: not at all 7. Trouble concentrating on things, such as reading the newspaper or watching television: more than half the days 8. Moving or speaking so slowly that other people could have noticed. Or the opposite - being so fidgety or restless that you have been moving around a lot more than usual: not at all 9. Thoughts that you would be better off or of hurting yourself in some way: not at all Total score: 9 Depression Screening Interpretation: Positive Depression Screening Done: Yes 06372 - PHQ-9 Billing: Yes Source: Developed by Drs. Anatoliy Gavin, Peyton Hunt, Austyn Weber and colleagues, with an educational kentrell from [employer]. Thrive Questionnaire Date Thrive assessed: 01/05/25 I am a: Patient What is your living situation today?: I have a steady place to live Within the past 12 months, did the food you bought not last and you didn't have the money to get more?: Never true Within the past 12 months, did you worry whether your food would run out before you got money to buy more?: Never true Do you have trouble paying for medicines?: No Do you have trouble getting transportation to medical appointments?: No Do you have trouble paying your heating and electricity bill?: No Do you have trouble taking care of your child, family member or friend?: No Do you have trouble with day-to-day activities such as bathing, preparing meals, shopping, managing finances, etc.?: No Are you currently unemployed and looking for a job?: No Are you interested in more education?: No Please select the resources that you would like help with: Transportation and Daily support Currently or been in a relationship where the following occur: No concerns reported THRIVE Score: 0 AUDIT C Alcohol Use Questionnaire (AUDIT-C) 1. How often do you have a drink containing alcohol?: Never Total Score: 0 PAIGE-7 AMB Questionnaire PAIGE-7 Date PAIGE - 7 assessed: 01/07/25 Feeling nervous, anxious, or on edge: 1 = Several days Not being able to stop or control worryin = Not at all Worrying too much about different things: 1 = Several days Trouble relaxin = Several days Being so restless that it is hard to sit still: 1 = Several days Becoming easily annoyed or irritable: 0 = Not at all Feeling afraid as if something awful might happen: 0 = Not at all Total PAIGE-7 score (0-4 normal; 5-9 mild; 10-14 moderate; 15-21 severe): 4 Source: Developed by Drs. Anatoliy Gavin, Peyton Hunt, Austyn Weber and colleagues, with an educational kentrell from [employer]. PAGIE-7 Assessment Billing PAIGE-7 Assessment Tool: PAIGE-7 Assessment 91598 Physical exam (Primary Care) Vital Signs: Last Vital Signs Pulse 108 H 01/07/25 12:46 BP 140/76 H 01/07/25 12:46 Pulse Ox 92 01/07/25 12:46 Oxygen Delivery Method Room Air 01/07/25 12:46 BMI result Body Mass Index 27.4 Tobacco/Smoking Status: Tobacco use Status Tobacco use date assessed 11/01/24 01/07/25 12:51 Patient Tobacco Use Status Former Tobacco user 01/07/25 12:51 Tobacco use type Cigarette 01/07/25 12:51 e-Cigarette/Vaping Use Never Used 01/07/25 12:51 PHQ-9: PHQ-9 Score PHQ-9: Total score 9 01/07/25 13:05 Depression Screening Interpretation: Positive Thrive Assessment: Date of Thrive Assessment Date Thrive assessed 01/05/25 01/07/25 12:51 Currently or been in a relationship where the following occur: No concerns reported Const General: alert; No acute distress Eyes Conjunctivae: conjunctivae normal Resp Auscultation: clear to auscultation bilaterally Cardio Rate: regular rate Rhythm: regular rhythm GI Inspection: Yes normal to inspection Extrem General: Yes normal to inspection and No edema Coding Level of Care Code Est Pt Level 4 (12440) Complex EM visit Add On G2211 Diagnoses Gastroesophageal reflux disease without esophagitis K21.9 Esophagitis presence: without esophagitis Irritable bowel syndrome with constipation K58.1 Irritable bowel syndrome type: with constipation S/P TAVR (transcatheter aortic valve replacement) Z95.2 Additional Codes PAIGE-7 Assessment Billing - PAIGE-7 Assessment Tool: PAIGE-7 Assessment 98848 ([id number]) PHQ-9 - 92405 - PHQ-9 Billing: Yes ([id number]) Assessment & Plan Assessment & Plan (1) GERD (gastroesophageal reflux disease): Code(s): K21.9 - Gastro-esophageal reflux disease without esophagitis Category: Medical Qualifiers: Esophagitis presence: without esophagitis Qualified Code(s): K21.9 - Gastro-esophageal reflux disease without esophagitis Plan: Avoid the foods that causes that usually spicy foods, tomato products, juices, coffee, soda and foods that your sensitive to. After eating do not lie down, allow 3-4 hours before in lie down. And keep the head of bed above 30 degrees to avoid the acid from going up. (2) Irritable bowel: Code(s): K58.9 - Irritable bowel syndrome, unspecified Category: Medical Qualifiers: Irritable bowel syndrome type: with constipation Qualified Code(s): K58.1 - Irritable bowel syndrome with constipation Plan: Patient was given dicyclomine in the hospital. (3) S/P TAVR (transcatheter aortic valve replacement): Code(s): Z95.2 - Presence of prosthetic heart valve Category: Surgical Plan: Continue to follow up with Cardiology Plan History of Present Illness The patient is an 84-year-old female presenting with diarrhea and cramping that was evaluated during an emergency room visit on January 02, 2025. A CT scan was negative, leading to a diagnosis of irritable bowel syndrome (IBS). The patient has been advised on dietary modifications including increased fiber intake, but non-adherence to these recommendations persists. Blood pressure management is challenging due to episodes of hypotension that led to adjustment in medication. She has underlying anemia, leukopenia, thrombocytopenia, and experiences memory impairment. Health Maintenance - Lifestyle and dietary counseling provided emphasizing the need for increased fiber intake and regular hydration. - Encouragement to maintain regular physical activity within capabilities to support overall health. Social History - Limited dietary fiber intake, primarily consuming toast with peanut butter. - Describes forgetfulness affecting medication adherence. - Uses a cane for mobility within the home. - Reports weight loss but did not specify amount or time period. Review of Systems - Cardiovascular: Reports low blood pressure. - Gastrointestinal: Reports diarrhea, cramping; denies vomiting. - Neurological: Reports memory impairment. - Hematological: Reports anemia, leukopenia, thrombocytopenia. - Musculoskeletal: Reports use of a cane for ambulation at home. Physical Exam Results - Labs: Stable anemia with hemoglobin of 9, leukopenia and thrombocytopenia noted. - Diagnostics: CT scan negative, diagnosis of IBS. Plan The management of the patient's gastrointestinal symptoms includes continued dietary modifications to increase fiber intake. Regular use of pantoprazole is emphasized for GERD management with awareness that current hypotensive episodes may require continued antihypertensive evaluation. Fiber intake adjustments aim to alleviate diarrhea. Ongoing evaluation of anemia and related hematological findings is needed, with stable baseline levels maintained. Memory supports in the form of reminder notes are advised for consistency in self-care. Patient was informed and verbally consented to the use of an ambient scribe for clinic note documentation during this visit. Discussion Notes I discussed the diagnosis of irritable bowel syndrome with the patient and the importance of dietary fiber in managing symptoms. We reviewed her current medication adherence, including her usage of pantoprazole for GERD, emphasizing the need for consistency. We also discussed potential causes of diarrhea, noting that past laxative use could contribute. The importance of monitoring blood pressure in light of her hypotensive episodes was addressed, as well as the need for regular follow-up to assess the stability of her anemia, leukopenia, and thrombocytopenia. Strategies to enhance memory, such as written reminders, were discussed to improve her adherence to treatment plans. A follow-up with cardiology for her aortic stenosis status was advised. Patient Instructions - Increase fiber intake through diet or supplements like Metamucil. - Continue taking pantoprazole daily as prescribed. - Maintain regular hydration with water. - Use reminder notes or lists to help with memory. - Monitor blood pressure as advised. - Follow up with cardiology for heart valve status. - Seek medical attention if symptoms worsen or new symptoms develop. Medications: Discontinued famotidine Discontinued Reason: Doctor's Order 20 mg PO BEDTIME 14 days 14 tabs 0RF
--- OUTSIDE RECORDS SUMMARY | 2025-01-07 13:51 | XMS_ITS | Data Portability ---
Author Organization [facility], Home Service Address [address] [place] [address] Assessment No assessment recorded. Plan of Treatment Reminders Order Date Submit Date Provider Last Modified By Organization Details Last Modified Time Details Appointments None recorded. Lab BMP, blood [address] [facility], [address] [place] [address], [facility], [place], [address], 9 07:42:19 lipid panel, blood [address] Internal [facility], [address] [place] [address], [facility], [place], [address], 9 07:42:20 Referral None recorded. Procedures None recorded. Surgeries None recorded. Imaging None recorded. Medication Orders Cipro 500 mg tablet 2018 019 [id number], [address], [place], [id number], 9 11:53:38 Zithromax Z-Rajesh 250 mg tablet 2018 019 [facility] #[id number], [address], [place], [id number], 9 11:53:23 metoprolol succinate ER 25 mg tablet,exte nded release 24 hr 2018 [id number], [address], [place], [id number], 9 11:15:40 Patient Targets Encounter Date Encounter Id Patient Goals Patient Target Last Modified By Organization Details Last Modified Time Call therapist to schedule counseling marilynn Not available 09/26/2018 11:54:07 Patient Instructions Encounter Date Encounter Id Patient Instructions Last Modified By Organization Details Last Modified Time 09/21/2018 [id number] Relaxation, reconsider escitalopram- will review at f/u next week to avoid dual med starting together marilynn Not available 09/21/2018 15:27:44 09/26/2018 [id number] pulse oximetry* marilynn Not available 09/26/2018 11:54:08 10/08/2018 [id number] Acute Sinusitis: Care Instructions marilynn Not available 10/08/2018 11:28:17 pulse oximetry* marilynn Not available 10/08/2018 11:28:17 12/04/2018 [id number] pulse oximetry* marilynn Not available 12/04/2018 12:22:51 Reason for Referral None Reported. Results Created Date Observation Date Name Description Value Unit Range Abnormal Flag Note LastModifiedBy Organization Detail LastModifiedTime 09/26/19 19 09/26/2018 pulse oxime try* Result 96 Not Available [facility] [address], [address], 09/26/2018 11:15:30 10/08/19 19 10/08/2018 pulse oxime try* Result 97 Not Available [facility] [address], [address], 10/08/2018 11:18:00 12/05/19 19 12/04/2018 pulse oxime try* Result 97 Not Available [facility] [address], [address], 12/04/2018 11:55:20 Result Notes None recorded. Problems Name Problem SNOMED Code Status Onset Date Resolution Date Notes Provider Name and Address Organization Details Recorded Time Abdominal aortic aneurysm 654057015 Active 2017 Samina Lama NP, [address] [place], [address], [facility] 8 13:58:39 Diverticul itis 462802095 Active 2017 Tainaronnell Hanson [facility] 8 16:58:14 Chronic obstructiv e pulmonary disease 40308419 Active 2017 [facility] 8 16:58:22 Aortic valve stenosis 65749846 Active 2017 [place] [facility] 8 16:58:36 Anxiety 18090665 Active 2017 [facility] 8 16:58:45 Cystocele 423387368 Active 2017 [place] [facility] 8 16:58:58 Problem Notes None recorded. Medical Equipment None Reported. Allergies Allergen ID Allergen Name Allergen Category Reaction Reaction Severity Criticality Documentation Date Start Date Code Code System Note Provider Name and Address Organization Details Recorded Time 1547 Substance with sulfonami de structure and antibacte rial mechanism of action (substanc e) medicatio n Not available Not available Not available 02/06/2018 23667 8003 SNOMED Tainaronnell Hanson [facility] 8 16:57:43 1548 Keflex medicatio n Not available Not available Not available 02/06/2018 7 RxNorm Tainaronnell Hanson [facility] 8 16:57:55 2328 Flagyl medicatio n other moderate Not available 05/29/201865900 6 RxNorm Tainaronnell Hanson [facility] 8 11:44:55 2717 metoprolo l Not available chest pain Not available Not available 09/21/2018 6918 RxNorm Tainaronnell Hanson [facility] 9 16:31:23 Medications Name Sig [...] % 128 mm[Hg] 84 mm[Hg] Taina Hanson [facility] 9 14:32:26 Date Recorded Body height Heart rate Oxygen saturation Oxygen saturation in Arterial blood by Pulse oximetry Systolic blood pressure Diastolic blood pressure Provider Name and Address Organization Details Last Updated DateTime 9 168.91 cm 90 /min 96 % 96 % 124 mm[Hg] 80 mm[Hg] Eunice Molina [facility] 9 11:17:24 Date Recorded Body height Oxygen saturation Oxygen saturation in Arterial blood by Pulse oximetry Heart rate Body temperature Systolic blood pressure Diastolic blood pressure Provider Name and Address Organization Details Last Updated DateTime 9 168.91 cm 97 % 97 % 112 /min 98.2 [degF] 142 mm[Hg] 86 mm[Hg] Tainaronnell Hanson [facility] 9 11:17:37 Date Recorded Heart rate Provider Name an d Address Organization Details Last Updated DateTime 10/08/2018 84 /min Samina Lama NP, [address] [place], [address], [facility] 10/08/2018 11:28:37 Date Recorded Body height Heart rate Oxygen saturation Oxygen saturation in Arterial blood by Pulse oximetry Systolic blood pressure Diastolic blood pressure Provider Name and Address Organization Details Last Updated DateTime 9 168.91 cm 105 /min 98 % 98 % 140 mm[Hg] 80 mm[Hg] [facility] 9 11:45:01 Date Recorded Heart rate Provider Name an d Address Organization Details Last Updated DateTime 10/19/2018 80 /min Samina Lama NP, [address] [place], [address], [facility] 10/19/2018 12:04:58 Date Recorded Body height Body mass index (BMI) Body weight Oxygen saturation Oxygen saturation in Arterial blood by Pulse oximetry Heart rate Systolic blood pressure Diastolic blood pressure Provider Name and Address Organization Details Last Updated DateTime 9 168.91 cm 31.1 kg/m2 16410.6 7 g 97 % 97 % 97 /min 120 mm[Hg] 90 mm[Hg] Dahiana Ha [facility] 9 11:56:24 Social History Question Answer Notes LastModified by Organizat ion Details LastModified Time Tobacco Smoking Status Former Smoker Not Available [facility] 07/07/2020 03:36:24 What Was The Date Of Your Most Recent Tobacco Screening? 12/04/2018 [id number] Information not available 07/07/2020 Sex: Unknown Functional [...] virus, quadrivalent, preservative 8 completed Eunice damon [facility] 09/26/2018 11:16:26 Past Encounters Encounter ID Performer Location Encounter Start Date Encounter Closed Date Diagnosis/Indication Diagnosis SNOMED-CT Code Diagnosis ICD10 Code Diagnosis Note [id number] Deny Saleh DO [facility] [address] [facility],[place] [address] 02/07/2018 11:02:27 02/07/2018 16:46:02 Anxiety 30389256 F41.9 Nail changes 031525800 L 60.9 Abdominal aortic aneurysm 975039012 I71.4 CT 11/2017, no changes 2016, 2.85 cm Aortic david nosis, non-rheumatic 332881513 I35.0 stable Gastroesop hageal reflux disease 288500291 K21.9 d/c yajaira mints, call if persists Insomnia 614073660 G47.0 0 review proper sleep hygiene be more active during day avoid naps [id number] Deny Saleh [facility] [address] [facility],[place] [address] 03/16/2018 11:29:23 03/20/2018 08:12:01 Dehydration 07022209 E86.0 Gastroenteritis 35051543 K52.9 Aortic valve stenosis 60 108330 I35.0 stable, follow [id number] Deny SawyerGeremias Saleh [facility] [address] [facility], [place] [address] 05/16/2018 13:23:14 05/16/2018 14:06:44 Anxiety 50738822 F41.9 BID lorazepam helps Aortic valve stenosis 60 074313 I35.0 stable, echo 05/31/2017 Active or passive immunization 167821251 Z23 Abdominal aortic aneurysm 211650541 I71.4 CT 11/2017, no changes 2016, 2.85 cm Chronic ob structive pulmonary disease 27741130 J44.9 Non smoker X years, asymptomat ic Diverticular disease 397 210274 K57.90 no recent flare [id number] Deny SawyerGeremias Saleh [facility] [address] [facility], [place] [address] 05/29/2018 11:40:58 05/29/2018 16:52:51 Aortic valve stenosis 54014881 I35.0 stable, echo 05/31/2017 Anxiety 63504709 F41.9 BID lorazepam helps, discussed current fears re: Constipation 87396493 K5 9.00 [id number] Deny SawyerGeremias Saleh [facility] [address] [facility], [place] [address] 08/14/2018 11:20:27 08/14/2018 17:00:16 Anxiety 69422977 F41.9 BID lorazepam helps, discussed current fears Aortic valve stenosis 60 438139 I35.0 stable, echo 05/31/2017 Diverticulitis 722143552 K57.92 Increased frequency of urination 694983982 R35.0 [id number] Deny Dori Saleh [facility] [address] [facility], [place] [address] [address] 08/20/2018 11:12:33 08/20/2018 12:20:46 Anxiety 02309001 F41.9 BID alprazolam helps, discussed current fears Diverticulitis 126777319 K57.92 Aortic valve stenosis 60 954683 I35.0 stable, echo 05/31/2017 Family problems 91084348 4 Z63.79 Suggest therapy, names provided. Pt agrees [id number] Deny Dori Saleh [facility] [address] [facility], [place] [address] 09/12/2018 10:19:31 09/12/2018 20:18:16 Abdominal aortic aneurysm 649504135 I71.4 CT 11/2017, no changes 2016, 2.85 cm Chronic ob structive pulmonary disease 02664045 J44.9 Non smoker X years, asymptomat ic Anxiety 83639405 F41.9 BID alprazolam helps, discussed current fears Aortic valve stenosis 60 121418 I35.0 stable, echo 05/31/2017 [id number] Deny SawyerGeremias Saelh [facility] [address] [facility], [place] [address] 09/21/2018 14:26:58 09/25/2018 11:17:00 Anxiety 94781750 F41.9 discussed current fears again, see below Aortic valve stenosis 60 975440 I35.0 [id number] Deny Saleh [facility] [address] [facility] [address], ite [facility] [place] [address] 09/26/2018 11:12:05 09/26/2018 13:02:53 Hypertensive disorder 56107427 I10 Chronic ob structive pulmonary disease 13166612 J44.9 Non smoker X years, asymptomat ic Anxiety 13825788 F41.9 discussed current fears again, see below Aortic valve stenosis 60 787263 I35[place] [id number] Deny Saleh [facility] [address] [facility] [address], [place] [address] [address] 10/08/2018 11:12:38 10/08/2018 14:35:10 Cough 53760868 R05 Acute sinusitis 02299610 J01.90 Anxiety 34117942 F41.9 revisited [id number] [facility] [address] [facility],[place] [address] 10/19/2018 11:41:00 10/19/2018 12:37:34 Diverticulitis 000166174 K57.92 Intolerant Flagyl Anxiety 73160522 F41.9 revisited Aortic valve stenosis 60 891681 I35.0 asymptomat ic Abdominal aortic aneurysm 667394329 I71.4 CT 11/2017, no changes 2016, 2.85 cm Chronic ob structive pulmonary disease 17881317 J44.9 Non [place], [place] [id number] [facility] [address] [facility],[place] [address] 12/04/2018 11:49:58 12/04/2018 16:03:42 Chronic obstructive pulmonary disease 74711905 J44.9 Non smoker X years, asymptomat ic Anxiety 51597605 F41.9 revisited Aortic valve stenosis 60 862526 I35.0 asymptomat ic Health Concerns Section Related Observation LastModified by Organization Detai ls LastModified Time None Recorded Concern Status LastModified by Organization Details LastModified Time None Recorded Advance Directives Directive None Recorded Payers Encounter Date Sequence Insurance Name Policy Number Policy Berry Covered Member ID Brery Member ID Guarantor Name 09/21/2018 2 [employer] - [employer] [id number] Bella Keith Kale [id number] [facility] 09/21/2018 1 [place] [facility] Bella Sagar Kale [id number] [place] 09/26/2018 2 [facility] [id number] Bella Keith Kale [id number] Bella [place] 09/26/2018 1 [place] [employer] Bella Sagar Kale [id number] Bella [place] 10/08/2018 2 [facility] [employer] [id number] Bella Keith Kale [id number] Bellakwasi [place] 10/08/2018 1 [place] [facility] Bella Henley [id number] Bella Henley 10/19/2018 2 [facility] [id number] Bella Henley [id number] Bella Henley 10/19/2018 1 [place] [facility] Bella Henley [id number] Bella Henley 12/04/2018 2 [facility] [id number] Bella Hneley [id number] Bella Henley 12/04/2018 1 [place] [facility] Bella Henley [id number] Bella [place]ley Notes Date Note Type Note Provider Name a nd Address Organization Details Recorded Time 09/21/2018 text/html Here with concer ns BP had panic attack this am, ambulance was called Checked BP after pts episode was 158/101 Did not start escitalopram prescribed last week , under a great deal of stress Samina Lama NP, [address] [place], [address], [facility] 09/21/2018 15:27:56 09/26/2018 text/html [...] complete ADL's Samina Lama NP, [address] [place], [address], [facility] 09/26/2018 11:54:50 10/08/2018 text/html Same day visit coughing X 6 days tried to get in to see ENT, usually when feels like this , has sinus infection-but they were unable to see no fever, mild SOB no ear pain, no sore throat saw dentist last week. ? 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 this a.m. also increased voiding w/no dysuria no N/V/D/C, no BRBPR or hematuria Samina Lama NP, [address] [place], [address], [facility] 10/19/2018 12:09:27 12/04/2018 text/html Very anxious re: husbands cognitive decline/getting worn out In therapy w/Peter Dopp Son also recent renal cancer, surgery went well.-but pt. gets worked up over everything pt recently started back on allergy shots some heartburn and post nasal drip Samina Lama NP, [address] [place], [address], [facility] 12/04/2018 12:23:16 OBGyn Episode No OBEpisode recorded.
--- OUTSIDE RECORDS SUMMARY | 2025-01-07 13:52 | XMS_ITS | Clinical Summary ---
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
== END 2025-01-07 13:24 | disposition home or self-care (01) ==
LOC: HO.HMCH 12:44
PROVIDERS: PCP Internal Medicine; Visit Provider Internal Medicine
DX: K21.9 Gastro-esophageal reflux disease without esophagitis (principal); K58.1 Irritable bowel syndrome with constipation; Z95.2 Presence of prosthetic heart valve

== ENCOUNTER → 2025-01-07 12:43 | Outpatient (BNVA) | payer MEDICARE, OTHER, SELFPAY | PROVIDERS: PCP Internal Medicine; Visit Provider Internal Medicine | DX: K21.9 Gastro-esophageal reflux disease without esophagitis (principal); K58.1 Irritable bowel syndrome with constipation; Z95.2 Presence of prosthetic heart valve | CPT/HCPCS: 96127; 99212 ==

== ENCOUNTER 2025-01-14 07:31 | Outpatient (REF) | payer MEDICARE, OTHER, SELFPAY ==
--- NOTE | ~2025-01-14 | XR_ITS ---
CLINICAL HISTORY: M25.531 - Pain in right wrist Right wrist three views Comparison: 11/23/2024 Findings: Healing distal radius fracture is unchanged. Alignment remains anatomic. No new bony abnormalities are identified. Impression: Healing distal radius fracture This document has been electronically signed by: Samuel Concepcion MD on 01/14/2025 19:12:43
--- OUTSIDE RECORDS SUMMARY | 2025-01-14 07:34 | XMS_ITS | Clinical Summary ---
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
--- OUTSIDE RECORDS SUMMARY | 2025-01-14 07:34 | XMS_ITS | Data Portability ---
Author Organization [facility], Home Service Address [address] [place] [address] Assessment No assessment recorded. Plan of Treatment Reminders Order Date Submit Date Provider Last Modified By Organization Details Last Modified Time Details Appointments None recorded. Lab BMP, blood [address] [facility], [address] [place] [address], [facility], [place], [address], 9 07:42:19 lipid panel, blood [address] [facility], [address] [place] [address], [facility], [place], [address], 9 07:42:20 Referral None recorded. Procedures None recorded. Surgeries None recorded. Imaging None recorded. Medication Orders Cipro 500 mg tablet [address] [id number], [address] [place], [place], [id number], 9 11:53:38 Zithromax Z-Rajesh 250 mg tablet 2018 019 [facility] #[id number], [address], [place], [id number], 9 11:53:23 metoprolol succinate ER 25 mg tablet,exte nded release 24 hr 2018 [id number], [address], [place], [id number], 9 11:15:40 Patient Targets Encounter Date Encounter Id Patient Goals Patient Target Last Modified By Organization Details Last Modified Time Call therapist to schedule counseling marilynn Not available 09/26/2018 11:54:07 Patient Instructions Encounter Date Encounter Id Patient Instructions Last Modified By Organization Details Last Modified Time 09/21/2018 [id number] Relaxation, reconsider escitalopram- will review at f/u next week to avoid dual med starting together marilynn Not available 09/21/2018 15:27:44 09/26/2018 [id number] pulse oximetry* marilynn Not available 09/26/2018 11:54:08 10/08/2018 [id number] Acute Sinusitis: Care Instructions marilynn Not available 10/08/2018 11:28:17 pulse oximetry* marilynn Not available 10/08/2018 11:28:17 12/04/2018 [id number] pulse oximetry* marilynn Not available 12/04/2018 12:22:51 Reason for Referral None Reported. Results Created Date Observation Date Name Description Value Unit Range Abnormal Flag Note LastModifiedBy Organization Detail LastModifiedTime 09/26/19 19 09/26/2018 pulse oxime try* Result 96 Not Available [facility] [address], [address], 09/26/2018 11:15:30 10/08/19 19 10/08/2018 pulse oxime try* Result 97 Not Available [facility] [address], [address], 10/08/2018 11:18:00 12/05/19 19 12/04/2018 pulse oxime try* Result 97 Not Available [facility] [address], [address], 12/04/2018 11:55:20 Result Notes None recorded. Problems Name Problem SNOMED Code Status Onset Date Resolution Date Notes Provider Name and Address Organization Details Recorded Time Abdominal aortic aneurysm 264485134 Active 2017 Samina Lama NP, [address] [place], [address], [facility] 8 13:58:39 Diverticul itis 574370469 Active 2017 Tainaronnell Hanson [facility] 8 16:58:14 Chronic obstructiv e pulmonary disease 57365403 [facility] 2017 [facility] 16:58:22 Aortic valve stenosis 37088778 [facility] 16:58:36 Anxiety 19019027 [facility] 8 16:58:45 Cystocele 647962985 [facility] 16:58[facility]58 Problem Notes None recorded. Medical Equipment None Reported. Allergies Allergen ID Allergen Name Allergen Category Reaction Reaction Severity Criticality Documentation Date Start Date Code Code System Note Provider Name and Address Organization Details Recorded Time 1547 Substance with sulfonami de structure and antibacte rial mechanism of action (substanc e) medicatio n Not available Not available Not available 02/06/2018 25303 8003 SNOMED Tainaronnell Hanson [facility] 8 16:57:43 1548 Keflex medicatio n Not available Not available Not available 02/06/2018 7 RxNorm Tainaronnell Hanson [facility] 8 16:57:55 2328 Flagyl medicatio n other moderate Not available 05/29/201806252 6 RxNorm Tainaronnell Hanson [facility] 8 11:44:55 2717 metoprolo l Not available chest pain Not available Not available 09/21/2018 6918 RxNorm Tainaronnell Hanson [facility] 9 16:31:23 Medications Name Sig Start Date [...] % 128 mm[Hg] 84 mm[Hg] Taina Hanson [facility] 9 14:32:26 Date Recorded Body height Heart rate Oxygen saturation Oxygen saturation in Arterial blood by Pulse oximetry Systolic blood pressure Diastolic blood pressure Provider Name and Address Organization Details Last Updated DateTime 9 168.91 cm 90 /min 96 % 96 % 124 mm[Hg] 80 mm[Hg] Eunice Molina [facility] 9 11:17:24 Date Recorded Body height Oxygen saturation Oxygen saturation in Arterial blood by Pulse oximetry Heart rate Body temperature Systolic blood pressure Diastolic blood pressure Provider Name and Address Organization Details Last Updated DateTime 9 168.91 cm 97 % 97 % 112 /min 98.2 [degF] 142 mm[Hg] 86 mm[Hg] Tainaronnell Hanson [facility] 9 11:17:37 Date Recorded Heart rate Provider Name an d Address Organization Details Last Updated DateTime 10/08/2018 84 /min Samina Lama NP, [address] [place], [address], [facility] 10/08/2018 11:28:37 Date Recorded Body height Heart rate Oxygen saturation Oxygen saturation in Arterial blood by Pulse oximetry Systolic blood pressure Diastolic blood pressure Provider Name and Address Organization Details Last Updated DateTime 9 168.91 cm 105 /min 98 % 98 % 140 mm[Hg] 80 mm[Hg] [facility] 9 11:45:01 Date Recorded Heart rate Provider Name an d Address Organization Details Last Updated DateTime 10/19/2018 80 /min Samina Lama NP, [address] [place], [address], [facility] 10/19/2018 12:04:58 Date Recorded Body height Body mass index (BMI) Body weight Oxygen saturation Oxygen saturation in Arterial blood by Pulse oximetry Heart rate Systolic blood pressure Diastolic blood pressure Provider Name and Address Organization Details Last Updated DateTime 9 168.91 cm 31.1 kg/m2 86037.6 7 g 97 % 97 % 97 /min 120 mm[Hg] 90 mm[Hg] Dahiana Ha [facility] 9 11:56:24 Social History Question Answer Notes LastModified by Organizat ion Details LastModified Time Tobacco Smoking Status Former Smoker Not Available [facility] 07/07/2020 03:36:24 What Was The Date Of Your Most Recent Tobacco Screening? 12/04/2018 [id number] Information not available 07/07/2020 Sex: Unknown Functional [...] virus, quadrivalent, preservative 8 completed Eunice damon [facility] 09/26/2018 11:16:26 Past Encounters Encounter ID Performer Location Encounter Start Date Encounter Closed Date Diagnosis/Indication Diagnosis SNOMED-CT Code Diagnosis ICD10 Code Diagnosis Note [id number] Deny Saleh DO [facility] [address] [facility],[place] [address] 02/07/2018 11:02:27 02/07/2018 16:46:02 Anxiety 27502455 F41.9 Nail changes 251551931 L 60.9 Abdominal aortic aneurysm 614662992 I71.4 CT 11/2017, no changes 2016, 2.85 cm Aortic david nosis, non-rheumatic 736102226 I35.0 stable Gastroesop hageal reflux disease 320975625 K21.9 d/c yajaira mints, call if persists Insomnia 700090231 G47.0 0 review proper sleep hygiene be more active during day avoid naps [id number] Deny Saleh [facility] [address] [facility],[place] [address] 03/16/2018 11:29:23 03/20/2018 08:12:01 Dehydration 39325487 E86.0 Gastroenteritis 28422011 K52.9 Aortic valve stenosis 60 595047 I35.0 stable, follow [id number] Deny SawyerGeremias Saleh [facility] [address] [facility], [place] [address] 05/16/2018 13:23:14 05/16/2018 14:06:44 Anxiety 23324051 F41.9 BID lorazepam helps Aortic valve stenosis 60 184004 I35.0 stable, echo 05/31/2017 Active or passive immunization 767575058 Z23 Abdominal aortic aneurysm 811041769 I71.4 CT 11/2017, no changes 2016, 2.85 cm Chronic ob structive pulmonary disease 82242622 J44.9 Non smoker X years, asymptomat ic Diverticular disease 397 711263 K57.90 no recent flare [id number] Deny SawyerGeremias Saleh [facility] [address] [facility], [place] [address] 05/29/2018 11:40:58 05/29/2018 16:52:51 Aortic valve stenosis 16482870 I35.0 stable, echo 05/31/2017 Anxiety 00896470 F41.9 BID lorazepam helps, discussed current fears re: Constipation 71108788 K5 9.00 [id number] Deny SawyerGeremias Saleh [facility] [address] [facility], [place] [address] 08/14/2018 11:20:27 08/14/2018 17:00:16 Anxiety 57530673 F41.9 BID lorazepam helps, discussed current fears Aortic valve stenosis 60 414893 I35.0 stable, echo 05/31/2017 Diverticulitis 488555073 K57.92 Increased frequency of urination 525473757 R35.0 [id number] Deny Dori Saleh [facility] [address] [facility], [place] [address] 08/20/2018 11:12:33 08/20/2018 12:20:46 Anxiety 92575605 F41.9 BID alprazolam helps, discussed current fears Diverticulitis 144081650 K57.92 Aortic valve stenosis 60 606698 I35.0 stable, echo 05/31/2017 Family problems 17790652 4 Z63.79 Suggest therapy, names provided. Pt agrees [id number] Deny Dori Saleh [facility] [address] [facility], [place] [address] 09/12/2018 10:19:31 09/12/2018 20:18:16 Abdominal aortic aneurysm 472366918 I71.4 CT 11/2017, no changes 2016, 2.85 cm Chronic ob structive pulmonary disease 84495103 J44.9 Non smoker X years, asymptomat ic Anxiety 98355051 F41.9 BID alprazolam helps, discussed current fears Aortic valve stenosis 60 994143 I35.0 stable, echo 05/31/2017 [id number] Deny SawyerGeremias Saleh [facility] [address] [facility], [place] [address] 09/21/2018 14:26:58 09/25/2018 11:17:00 Anxiety 31051708 F41.9 discussed current fears again, see below Aortic valve stenosis 60 704075 I35.0 [id number] Deny Saleh [facility] [address] [facility] [address], [address] [facility] [place] [address] 09/26/2018 11:12:05 09/26/2018 13:02:53 Hypertensive disorder 48507748 I10 Chronic ob structive pulmonary disease 28105648 J44.9 Non smoker X years, asymptomat ic Anxiety 56059630 F41.9 discussed current fears again, see below Aortic valve stenosis 60 496213 I35[place] [id number] Deny Saleh [facility] [address] [facility], [place] [address] 10/08/2018 11:12:38 10/08/2018 14:35:10 Cough 52381049 R05 Acute sinusitis 43084476 J01.90 Anxiety 94095788 F41.9 revisited [id number] [facility] [address] [facility],[place] [address] 10/19/2018 11:41:00 10/19/2018 12:37:34 Diverticulitis 083900900 K57.92 Intolerant Flagyl Anxiety 91432281 F41.9 revisited Aortic valve stenosis 60 790678 I35.0 asymptomat ic Abdominal aortic aneurysm 935744823 I71.4 CT 11/2017, no changes 2016, 2.85 cm Chronic ob structive pulmonary disease 14479904 J44.9 Non [place] [id number] [facility] [address] [facility],[place] [address] 12/04/2018 11:49:58 12/04/2018 16:03:42 Chronic obstructive pulmonary disease 18000250 J44.9 Non smoker X years, asymptomat ic Anxiety 82611415 F41.9 revisited Aortic valve stenosis 60 002678 I35.0 asymptomat ic Health Concerns Section Related Observation LastModified by Organization Detai ls LastModified Time None Recorded Concern Status LastModified by Organization Details LastModified Time None Recorded Advance Directives Directive None Recorded Payers Encounter Date Sequence Insurance Name Policy Number Policy Berry Covered Member ID Berry Member ID Guarantor Name 09/21/2018 2 [employer] - [employer] [id number] Bella Keith Kale [id number] [facility] 09/21/2018 1 MEDICARE B-UT: [facility] Bella Sagar Kale [id number] [place] 09/26/2018 2 [facility] [employer]IC[facility] [id number] Bella Keith Kale [id number] Bella [place] 09/26/2018 1 MEDICARE B-UT: [employer] Bella Sagar Kale [id number] Bella [place] 10/08/2018 2 [facility] UNICARE [id number] Bella Keith Kale [id number] Bellakwasi [place] 10/08/2018 1 MEDICARE B-UT: [facility] Bella Henley [id number] Bella [place]ley 10/19/2018 2 [facility] [id number] Bella Henley [id number] Bella [place] 10/19/2018 1 MEDICARE B-UT: [facility] Bella Henley [id number] Bella [place]ley 12/04/2018 2 [facility] [id number] Bella Henley [id number] Bella Henley 12/04/2018 1 MEDICARE B-UT: [facility] Bella Henley [id number] Bella Henley Notes Date Note Type Note Provider Name a nd Address Organization Details Recorded Time 09/21/2018 text/html Here with concer ns BP had panic attack this am, ambulance was called Checked BP after pts episode was 158/101 Did not start escitalopram prescribed last week , under a great deal of stress Samina Lama NP, [address] [place], [address], [facility] 09/21/2018 15:27:56 09/26/2018 [...] complete ADL's Samina Lama NP, [address] [place], [address], [facility] 09/26/2018 11:54:50 10/08/2018 [...] family situation Samina Lama NP, [address] [place], [address], 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 this a.m. also increased voiding w/no dysuria no N/V/D/C, no BRBPR or hematuria Samina Lama NP, [address] [place], [address], [facility] 10/19/2018 12:09:27 12/04/2018 text/html Very anxious re: husbands cognitive decline/getting worn out In therapy w/Peter Dopp Son also recent renal cancer, surgery went well.-but pt. gets worked up over everything pt recently started back on allergy shots some heartburn and post nasal drip Samina Lama NP, [address] [place], [address], [facility] 12/04/2018 12:23:16 OBGyn Episode No OBEpisode recorded.
== END 2025-01-14 07:32 | disposition home or self-care (01) ==
LOC: HO.HOSX 07:31
DX: M25.531 Pain in right wrist (principal); S52.501A Unspecified fracture of the lower end of right radius, initial encounter for closed fracture
CPT/HCPCS: 73110; 99212

== ENCOUNTER 2025-01-14 13:35 | Outpatient (AMB) | payer MEDICARE, OTHER, SELFPAY ==
[2025-01-14 13:39] VITALS: BMI 27.4
--- NOTE | 2025-01-14 13:39 | MHC.OFFVIS ---
Vital Signs 01/14/25 13:39 Height 5 ft 6 in Weight 170 lb BMI 27.4 Intake Visit Reasons: OV- Right Distal Radius Fx 11/22/24 Intake Note: Bella is an 84 year old female who presents today for a follow up of right distal radius fracture, DOI 11/22/24. At patient last visit she was placed in a velcro wrist brace that she will wear like a cast and follow up in 4 weeks with repeat x-rays. Patient reports doing okay, yesterday a little discomfort at the dorsal aspect of wrist. She continues to wear wrist brace as instructed. Allergies buspirone Allergy (Intermediate, Verified 01/14/25 13:43) Rash Sulfa (Sulfonamide Antibiotics) Allergy (Intermediate, Verified 01/14/25 13:43) RASH cefuroxime Allergy (Unknown, Verified 01/14/25 13:43) Unknown garlic [GARLIC] Allergy (Unknown, Verified 01/14/25 13:43) PER H&P metronidazole [From FLAGYL] Allergy (Unknown, Verified 01/14/25 13:43) OCULAR MIGRAINES penicillamine Allergy (Unknown, Verified 01/14/25 13:43) Unknown ciprofloxacin Adverse Reaction (Intermediate, Verified 01/14/25 13:43) neuropathic pain lisinopril Adverse Reaction (Intermediate, Verified 01/14/25 13:43) Cough nitrofurantoin Adverse Reaction (Mild, Verified 01/14/25 13:43) GI side effects cefuroxime Allergy (Intermediate, Uncoded 01/14/25 13:43) wheezy cough/itch flagyl Allergy (Unknown, Uncoded 01/14/25 13:43) Unknown From KEFLEX Allergy (Unknown, Uncoded 01/14/25 13:43) RASH Metoprolol Tartrate Allergy (Unknown, Uncoded 01/14/25 13:43) Unknown Sulfacet-R Allergy (Unknown, Uncoded 01/14/25 13:43) Unknown HPI HPI OV- Right Distal Radius Fx 11/22/24: Details: Bella is an 84 year old female who presents today for a follow up of right distal radius fracture, DOI 11/22/24. At patient last visit she was placed in a velcro wrist brace that she will wear like a cast and follow up in 4 weeks with repeat x-rays. Patient reports doing okay, yesterday a little discomfort at the dorsal aspect of wrist. She continues to wear wrist brace as instructed. [facility] Medical History (Updated 01/07/25 @ 13:03 by Huma Garcia MD) Acute diverticulitis LLQ abdominal pain Contusion of right lower leg Otitis media Cough Bronchitis Pelvic pain Chronic cough Elevated IgE level Status post fall Annual wellness visit Hip pain Post-menopausal URI (upper respiratory infection) Sensation of pressure in bladder area Chest pain Elevated blood sugar Oral candidiasis GERD (gastroesophageal reflux disease) Pulmonary nodule HTN (hypertension) Heart palpitations Constipation Breast cancer screening Breast pain, left Elevated vitamin B12 level Neck muscle spasm Strain of neck muscle Low back pain Pubic ramus fracture Sore throat Skin tear of upper arm without complication Head injury, acute, without loss of consciousness Fall Dizziness Medication noncompliance due to cognitive impairment RLQ abdominal pain Sinusitis Flu syndrome Precordial chest pain Atypical chest pain Cold intolerance Former smoker Abnormal lung sounds Fever Bilateral calf pain Nausea Left lower quadrant abdominal pain Dysuria Fatigue Lower extremity weakness Aortic stenosis Obstipation Dark stools Lower abdominal pain Gastroenteritis Neck pain on right side Back pain Rhinitis Elevated BP without diagnosis of hypertension Non-rheumatic aortic stenosis Diverticulitis GERD (gastroesophageal reflux disease) Cat scratch Cat bite Epigastric discomfort Diarrhea Neuropathy Arthritis GERD (gastroesophageal reflux disease) HTN (hypertension) Irritable bowel Heart murmur Surgical History S/P AVR S/P TAVR (transcatheter aortic valve replacement) Hx of esophagogastroduodenoscopy Hx of colonoscopy History of tonsillectomy History of appendectomy Family History Father No problems noted. Mother No problems noted. Social History Household Members: Children Housing: House Are you a primary career law clerk to a significant other at home: No Do you presently have visiting nurse or other home services: No Alcohol intake: former Patient Tobacco Use Status: Former Tobacco user Tobacco use type: Cigarette e-Cigarette/Vaping Use: Never Used Second Hand Smoke Exposure: Yes Advance Directives Date on File: 03/28/23 service: No Current occupational status: retired Cognitive needs: No Hearing needs: No Vision needs: Yes (glasses) Review of Systems Const All systems reviewed & are unremarkable except as noted in HPI and below Physical Exam Vital Signs: BMI result Body Mass Index 27.4 Extrem Other: Patient is alert, oriented, and in no acute distress. Neuro: Normal sensation of the tips of all digits of the right hand at this time Vascular: Cap refill brisk Pain: No tenderness to palpation noted about the distal radius of the right wrist No pain with range of motion of the hand ROM: Patient is able to make a closed fist and extend all digits of the right hand fully Skin: No lacerations or abrasions. General: No ecchymosis, erythema, or evidence of infection. Psych: Appears grossly normal Affect normal Attitude cooperative Results Reviewed Results Reviewed: X-rays obtained in the office today and independently reviewed by me, Sumit Pollock PA-C, demonstrate minimally displaced, comminuted fracture of the right distal radius with evidence of interval bony healing. Assessment & Plan Assessment & Plan (1) Fracture of right distal radius: Comment: November 2024 Code(s): S52.501A - Unspecified fracture of the lower end of right radius, initial encounter for closed fracture Category: Medical Plan 1. Minimally displaced fracture of right distal radius Date of injury 11/22/2024 Patient is educated about this condition Patient was educated about the typical treatment course Patient was given a Velcro wrist splint at previous visit, to be worn with higher risk daytime activities at this time Patient is educated she can slowly work up to lifting a can of soup or equivalent weight over the next 3-4 weeks Patient and her son state understanding of this and are amenable to this plan Patient will follow-up in 4-5 week with repeat x-rays for reassessment, sooner with any acute concerns Orders: Orders XR wrist RT min 3V Today M25.531 - Pain in right wrist Coding Level of Care Code Global (80761) Diagnoses Fracture of right distal radius S52.501A
--- OUTSIDE RECORDS SUMMARY | 2025-01-14 14:42 | XMS_ITS | Clinical Summary ---
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
== END 2025-01-14 14:13 | disposition home or self-care (01) ==
LOC: HO.HOS 13:36
PROVIDERS: PCP Internal Medicine
DX: S52.501A Unspecified fracture of the lower end of right radius, initial encounter for closed fracture (principal)
CPT/HCPCS: 99024

== ENCOUNTER → 2025-01-14 13:37 | Outpatient (BNV) | payer MEDICARE, OTHER, SELFPAY | PROVIDERS: Visit Provider Radiology Diagnostic Radiology | DX: S52.501D Unspecified fracture of the lower end of right radius, subsequent encounter for closed fracture with routine healing (principal) | CPT/HCPCS: 73110 ==

== ENCOUNTER 2025-01-15 08:15 | Emergency (ER) | payer MEDICARE, OTHER, SELFPAY ==
[2025-01-15] VITALS (10 sets, daily range): BP systolic 125–160; BP diastolic 58–84; PULSE 76–99; RESP 12–18; TEMP 36.7–36.8; O2SAT 94–99; BMI 27.7
--- NOTE | ~2025-01-15 | XR_ITS ---
EXAMINATION: XR CHEST CLINICAL INFORMATION: cough, cp COMPARISON: CT chest 08/19/2024. TECHNIQUE: 2 views of the chest were obtained. FINDINGS: The cardiac size is normal. Aortic mural calcifications. TAVR in place. There is prominence of the aortic root. Hilar regions appear normal. Lungs are diffusely hyperaerated, with increased fine reticular markings consistent with COPD. Lungs otherwise clear. There is no pneumothorax or pleural effusion. There is no soft tissue abnormality. Old right rib fracture noted. There are degenerative changes throughout the spine with exaggerated kyphosis, and features which could be consistent with DISH. XR/XR chest 2V IMPRESSION: 1. TAVR in place. 2. Prominence of the aortic root. 3. COPD without superimposed active disease. Electronically signed by: Higinio Pozo MD 01/15/2025 09:08 AM EDT
--- NOTE | 2025-01-15 08:19 | ECG_ITS ---
Test Reason : CHEST PAIN Blood Pressure : */* mmHG Vent. Rate : 82 BPM Atrial Rate : 82 BPM P-R Int : 216 ms QRS Dur : 88 ms QT Int : 386 ms P-R-T Axes : 44 -10 24 degrees QTcB Int : 450 ms Sinus rhythm with 1st degree A-V block Cannot rule out Anterior infarct , age undetermined Abnormal ECG When compared with ECG of 05-Dec-2024 12:16, No significant change was found Referred By: Generic ED Physician Electronically Signed By: MICHEL CHARLES MD
[2025-01-15 08:47] LABS: MANUAL DIFF FLAG NO
--- NOTE | 2025-01-15 08:49 | PC.NURSE ---
pt is alert and oriented, skin pwd, respirations even and unlabored, ls clear, pt reports waking up this morning and not feeling right, having some left sided chest pain with slight nausea and pain intermittently runs down to the left arm also reports feeling lightheaded and a cough with some phlem production according to the pt
[2025-01-15 09:04] LABS: Alanine Aminotransferase 13 U/L (0-31); Albumin Level 4.1 g/dL (3.5-5.0); Alkaline Phosphatase 91 U/L (39-117); Anion Gap 12 (12-20); Aspartate Amino Transferase 22 U/L (5-31); Bilirubin Direct 0.1 mg/dL (0.0-0.5); Bilirubin Total 0.4 mg/dL (0.0-1.0); Blood Urea Nitrogen 22 mg/dL (9-16); Calcium 9.5 mg/dL (8.4-10.2); Carbon Dioxide 28 mmol/L (22-29); Chloride 105 mmol/L (96-108); Estimated Glomerular Filt Rate 60; Glucose Random 89 mg/dL (60-115); Potassium 4.5 mmol/L (3.3-5.1); Sodium 140 mmol/L (135-145); Total Protein 6.8 g/dL (6.5-8.0)
--- NOTE | 2025-01-15 09:04 | ED.CHESTPAIN ---
HPI - Chest Pain General Chief Complaint: Chest Pain Stated Complaint: CHEST TIGHTNESS/DISCOMFORT THIS AM,COUGH PER EMS Time Seen by Provider: 01/15/25 09:09 Source: patient, EMS, RN notes reviewed and old records reviewed Mode of arrival: EMS History of Present Illness ED Provider: Lauren Stout PA-C HPI narrative: 84-year-old female with a past medical history GERD, HTN, s/p TAVR, anxiety, CVA/TIA, IBS, COPD, presenting to the ED via EMS complaining of left-sided chest pain radiating down LUE with associated lightheadedness x this morning. Also reports productive cough x1 week. 324 mg ASA given by EMS. Denies fever, chills, SOB, room spinning dizziness, pedal edema, abdominal pain, vomiting Related Data Home Medications ?Medication ?Instructions ?Recorded ?Confirmed folic acid 400 mcg tablet 0.4 mg PO DAILY 11/23/23 12/28/24 alprazolam 0.25 mg tablet 0.25 mg PO BID 03/28/24 12/28/24 fluticasone propionate 50 spray intranasal 08/23/24 12/28/24 mcg/actuation nasal spray,suspension citalopram 20 mg tablet (Celexa) 20 mg PO DAILY 11/28/24 12/28/24 fluticasone propionate 115 2 puff inhalation BID 01/14/25 mcg-salmeterol 21 mcg/actuation HFA inhaler (Advair HFA) Previous Rx's ?Medication ?Instructions ?Recorded acetaminophen 325 mg capsule 325 mg PO Q4H PRN pain #30 caps 12/17/23 (Tylenol) albuterol sulfate 90 mcg/actuation 2 puff inhalation Q4-6H PRN 09/06/24 aerosol inhaler shortness of breath or wheezing #1 ea mirabegron 25 mg tablet,extended 25 mg PO DAILY 90 days #90 tabs 11/01/24 release 24 hr (Myrbetriq) ondansetron 4 mg disintegrating 4 mg PO Q6H PRN nausea and 11/18/24 tablet vomiting #14 tabs cholecalciferol (vitamin D3) 50 50 mcg PO DAILY #90 tabs 12/09/24 mcg (2,000 unit) tablet (Vitamin D3) pantoprazole 40 mg tablet,delayed 40 mg PO DAILY #90 tabs 12/15/24 release (Protonix) polyethylene glycol 3350 17 gram 17 g PO DAILY 14 days #14 ea 12/28/24 oral powder packet (Miralax) clopidogrel 75 mg tablet 75 mg PO QAM #90 tabs 12/30/24 dicyclomine 20 mg tablet 20 mg PO BID PRN diarrhea #7 tabs 01/03/25 Allergies Allergy/AdvReac Type Severity Reaction Status Date / Time buspirone Allergy Intermediate Rash Verified 01/15/25 08:24 Sulfa (Sulfonamide Allergy Intermediate RASH Verified 01/15/25 08:24 Antibiotics) cefuroxime Allergy Unknown Unknown Verified 01/15/25 08:24 garlic [GARLIC] Allergy Unknown PER H&P Verified 01/15/25 08:24 metronidazole [From FLAGYL] Allergy Unknown OCULAR Verified 01/15/25 08:24 MIGRAINES penicillamine Allergy Unknown Unknown Verified 01/15/25 08:24 ciprofloxacin AdvReac Intermediate neuropathic Verified 01/15/25 08:24 pain lisinopril AdvReac Intermediate Cough Verified 01/15/25 08:24 nitrofurantoin AdvReac Mild GI side Verified 01/15/25 08:24 effects cefuroxime Allergy Intermediate wheezy Uncoded 01/14/25 13:43 cough/itch flagyl Allergy Unknown Unknown Uncoded 01/14/25 13:43 From KEFLEX Allergy Unknown RASH Uncoded 01/14/25 13:43 Metoprolol Tartrate Allergy Unknown Unknown Uncoded 01/14/25 13:43 Sulfacet-R Allergy Unknown Unknown Uncoded 01/14/25 13:43 Review of Systems Review of Systems: Yes all other systems are reviewed and are negative Constitutional: Constitutional: Reports as per [facility] Past Medical History Attestation statement: The following information was validated with the patient. Source: old records reviewed Medical History Acute diverticulitis LLQ abdominal pain Contusion of right lower leg Otitis media Cough Bronchitis Pelvic pain Chronic cough Elevated IgE level Status post fall Annual wellness visit Hip pain Post-menopausal URI (upper respiratory infection) Sensation of pressure in bladder area Chest pain Elevated blood sugar Oral candidiasis GERD (gastroesophageal reflux disease) Pulmonary nodule HTN (hypertension) Heart palpitations Constipation Breast cancer screening Breast pain, left Elevated vitamin B12 level Neck muscle spasm Strain of neck muscle Low back pain Pubic ramus fracture Sore throat Skin tear of upper arm without complication Head injury, acute, without loss of consciousness Fall Dizziness Medication noncompliance due to cognitive impairment RLQ abdominal pain Sinusitis Flu syndrome Precordial chest pain Atypical chest pain Cold intolerance Former smoker Abnormal lung sounds Fever Bilateral calf pain Nausea Left lower quadrant abdominal pain Dysuria Fatigue Lower extremity weakness Aortic stenosis Obstipation Dark stools Lower abdominal pain Gastroenteritis Neck pain on right side Back pain Rhinitis Elevated BP without diagnosis of hypertension Non-rheumatic aortic stenosis Diverticulitis GERD (gastroesophageal reflux disease) Cat scratch Cat bite Epigastric discomfort Diarrhea Neuropathy Arthritis GERD (gastroesophageal reflux disease) HTN (hypertension) Irritable bowel Heart murmur Surgical History S/P AVR S/P TAVR (transcatheter aortic valve replacement) Hx of esophagogastroduodenoscopy Hx of colonoscopy History of tonsillectomy History of appendectomy Family History Family History Father No problems noted. Mother No problems noted. Social History Social History Household Members: Children Housing: House Are you a primary menagerie caretaker to a significant other at home: No Do you presently have visiting nurse or other home services: No Alcohol intake: former Patient Tobacco Use Status: Former Tobacco user Tobacco use type: Cigarette Smoked in Last 30 Days: No e-Cigarette/Vaping Use: Never Used Second Hand Smoke Exposure: Yes Use of substances other than those prescribed or required for medical reasons: No Advance Directives: Yes Advance Directives on File: Yes Advance Directives Date on File: 03/28/23 Do you have a plan to hurt others: No Plan service: No Current occupational status: retired Cognitive needs: No Hearing needs: No Vision needs: Yes (glasses) Physical Exam Vital Signs: Vital Signs: Last Vital Signs Temp 98.2 F 01/15/25 16:22 Pulse 99 01/15/25 16:22 Resp 18 01/15/25 16:22 BP 132/76 01/15/25 16:22 Pulse Ox 97 01/15/25 16:22 O2 Del Method Room Air 01/15/25 16:22 BMI result Body Mass Index 27.7 Const: General: cooperative, healthy appearing and no acute distress Orientation/consciousness: patient oriented x3 Limitations: no limitations HEENT: Head: Yes normal to inspection and Yes atraumatic Ears: hearing grossly normal bilaterally General nose exam: Normal external nose present Face and sinus: Yes normal facial exam Eyes: General: appearance normal, both eyes and all related structures EOM: EOMs intact bilaterally Neck: Neck: Yes normal visual inspection and Yes no meningeal signs Resp: Effort & Inspection: normal respiratory effort and no respiratory distress Auscultation: clear to auscultation bilaterally, no crackles, no rales, no rhonchi and no wheezes Cardio: Rate: regular rate Heart sounds: S1 normal heart sound present and S2 normal heart sound present Skin: Rashes: no rashes Wounds: no wounds Neuro: General: patient oriented x3, tone normal and no meningeal signs Cranial nerves: Yes CN's II-XII intact bilaterally Gait exam (Neuro): Normal gait present Extrem: General: Yes normal to inspection, Yes no pedal edema and Yes no calf tenderness Course Course Course Narrative: -orthostatic vital signs positive > we will give IVF and repeat XR chest 2V IMPRESSION: 1. TAVR in place. 2. Prominence of the aortic root. 3. COPD without superimposed active disease. -0913--initial troponin 6.3 > will obtain 3 hour repeat -H/H with slight drop from priors, however chronically anemic > denies any active bleeding, melena, bloody stools, hematuria -1245--repeat troponin without delta, OR unlikely -1316--repeat orthostatic vital signs improved/negative. Pending case management consult. Physician observation initiated Time: 16:13 Date: 01/15/25 Provider: ROMAINE Mensah Physician observation ended at 1615. Patient will discharge home with resumption of VNA. Passed PT eval. Patient and son agreeable Medications Administered Discontinued Medications Generic Name Dose Route Start Last Admin Trade Name Freq PRN Reason Stop Dose Admin Sodium Chloride 1,000 mls @ 999 mls/hr 01/15/25 09:15 01/15/25 10:45 Ns IV 01/15/25 10:15 Infused .Q1H1M URSULA Infusion Ondansetron HCl 4 mg 01/15/25 12:44 01/15/25 13:23 Ondansetron Hcl 4 Mg/2 Ml Vial IVPUSH 01/15/25 12:45 4 mg ONCE ONE Administration Medical Decision Making Medical Decision Making MDM Narrative: 84-year-old female with a past medical history GERD, HTN, s/p TAVR, anxiety, CVA/TIA, IBS, COPD, presenting to the ED via EMS complaining of left-sided chest pain radiating down LUE with associated lightheadedness x this morning. On exam vital signs stable, NAD, nontoxic appearing, lungs CTA, no pedal edema. Concern for ACS vs viral illness vs pneumonia vs bronchitis. Lower suspicion for PE/DVT or CHF. Unlikely dissection Plan: EKG, labs, orthostatics, CXR, re-evaluate Please refer to course for remaining clinical decision making, interpretation of labs/imaging results, and discussions with consultants and/or family members. Differential Diagnosis Differential Diagnoses: The differential diagnosis associated with the presentation includes As above Admission/Observation Consideration of admission/observation: Escalation of care including admission/observation considered Lab Data [facility] Lab Attestation statement: I reviewed the patient's lab results. 01/15/25 08:42 01/15/25 08:42 Labs: Lab Results 01/15/25 01/15/25 01/15/25 Range/Units 08:42 08:45 12:15 WBC 2.7 L (4.8-10.8) X10*3/uL RBC 2.85 L (4.20-5.50) X10*6/uL Hgb 8.3 L (12.0-16.0) g/dl Hct 26.3 L (37.0-47.0) % MCV 92.3 (80.0-98.0) fL MCH 29.1 (27.0-33.0) pg MCHC 31.6 (31.0-35.0) g/dl RDW 14.6 (11.0-16.0) % Plt Count 138 L (160-400) X10*3/uL MPV 11.2 (9.4-12.3) fL Immature Gran % (Auto) 0.4 (0.0-0.4) % Neut % (Auto) 58.2 (45-73) % Lymph % (Auto) 20.5 (20-40) % [place] % (Auto) 12.7 H (2-11) % Eos % (Auto) 7.5 H (0-4) % Baso % (Auto) 0.7 (0-2) % Lymph # (Auto) 0.6 L (1.2-4.9) X10*3/uL [place] # (Auto) 0.3 (0.1-1.2) X10*3/uL Eos # (Auto) 0.2 (0.0-0.4) X10*3/uL Baso # (Auto) 0.0 (0.0-0.2) X10*3/uL Abs Immat Gran (auto) 0.01 (0.00-0.03) X10*3/uL Absolute Neuts (auto) 1.6 L (2.0-8.3) x10*3/uL Absolute Nucleated RBC 0.000 (0.0-0.012) X10*3/uL Nucleated RBC % (auto) 0.0 (0.0-0.2) /100WBC Sodium 140 (135-145) mmol/L Potassium 4.5 (3.3-5.1) mmol/L Chloride 105 (96-108) mmol/L Carbon Dioxide 28 (22-29) mmol/L Anion Gap 12 (12-20) BUN 22 H (9-16) mg/dL Creatinine 0.90 (0.5-1.4) mg/dL Estim Creat Clear Calc 49.0 Estimated GFR 60 Random Glucose 89 (60-115) mg/dL Calcium 9.5 (8.4-10.2) mg/dL Magnesium 2.0 (1.6-2.6) mg/dL Total Bilirubin 0.4 (0.0-1.0) mg/dL Direct Bilirubin 0.1 (0.0-0.5) mg/dL AST 22 (5-31) U/L ALT 13 (0-31) U/L Alkaline Phosphatase 91 (39-117) U/L Troponin I High Sens 6.3 6.7 (<3.5-17.0) ng/L Total Protein 6.8 (6.5-8.0) g/dL Albumin 4.1 (3.5-5.0) g/dL Influenza Type A (PCR) NEGATIVE (Negative) Influenza Type B (PCR) NEGATIVE (Negative) RSV RNA Qual (PCR) NEGATIVE (Negative) SARS-CoV-2 RNA (RT-PCR) NEGATIVE (Negative) Independent Interpretation I performed an independent interpretation of an: EKG (My interpretation EKG sinus rhythm with first-degree AV block rate of 82. LA interval 216. No significant change when compared to prior. No STEMI) and Plain X-Ray Radiology Impression Discussion of test interpretation with radiology: I have reviewed the radiologist's reading. Independent Historian Clinical information obtained from an independent historian. History obtained from or confirmed by: EMS External Record Review External record reviewed: Inpatient record, Office record, Outpatient record, Prior outpatient labs, Prior outpatient radiology, Primary care record and Outside ED record Tests considered The following testing was considered but not selected: As above Prescription Management I considered prescription management with: Pain Medication and Other Chronic Conditions Patient?s care impacted by: Hypertension and Other Social Determinants Patient?s care significantly limited by Social Determinants of Health including: Problems related to primary support group and Other Social Determinant of Health Discharge Plan Discharge Clinical Impression: Chest pain Patient Disposition: Home, Self-Care Instructions: Chest Pain (DC) Additional Instructions: Your blood work was reassuring today You are going home with resumption of VNA services Continue home prescribed medications Please have close follow up with her doctor If her symptoms persist or worsen return to the emergency department Prescriptions: No Action albuterol sulfate 90 mcg/actuation HFA aerosol inhaler 2 puff inhalation Q4-6H PRN (Reason: shortness of breath or wheezing) Qty: 1 2RF ondansetron 4 mg tablet,disintegrating 4 mg PO Q6H PRN (Reason: nausea and vomiting) Qty: 14 0RF cholecalciferol (vitamin D3) [Vitamin D3] 50 mcg (2,000 unit) tablet 50 mcg PO DAILY Qty: 90 3RF pantoprazole [Protonix] 40 mg tablet,delayed release (DR/EC) 40 mg PO DAILY Qty: 90 0RF clopidogrel 75 mg tablet 75 mg PO QAM Qty: 90 0RF folic acid 400 mcg Tablet 0.4 mg PO DAILY acetaminophen [Tylenol] 325 mg capsule 325 mg PO Q4H PRN (Reason: pain) Qty: 30 0RF alprazolam 0.25 mg Tablet 0.25 mg PO BID dicyclomine 20 mg tablet 20 mg PO BID PRN (Reason: diarrhea) Qty: 7 0RF fluticasone propionate 50 mcg/actuation spray,suspension intranasal fluticasone propion-salmeterol [Advair HFA] 115-21 mcg/actuation HFA aerosol inhaler 2 puff inhalation BID mirabegron [Myrbetriq] 25 mg tablet extended release 24 hr 25 mg PO DAILY 90 Days Qty: 90 3RF citalopram [Celexa] 20 mg tablet 20 mg PO DAILY polyethylene glycol 3350 [Miralax] 17 gram powder in packet 17 g PO DAILY 14 Days Qty: 14 0RF Referrals: Jenny DRAKE [Outside] Interventions: ED Discharge Assessment Last Done: 01/15/25 16:22 Discharge Date/Time: 01/15/25 16:22 Print Language: [place]raini
[2025-01-15 09:11] LABS: Troponin-I High Sensitivity 6.3 ng/L (<3.5-17.0)
[2025-01-15 09:15] LABS: Basophils Percent Auto 0.7 % (0-2); Eosinophils Absolute Auto 0.2 X10*3/uL (0.0-0.4); Eosinophils Percent Auto 7.5 % (0-4); Hematocrit 26.3 % (37.0-47.0); Hemoglobin 8.3 g/dl (12.0-16.0); Imm Gran Abs Auto 0.01 X10*3/uL (0.00-0.03); Imm Gran Pct Auto 0.4 % (0.0-0.4); Lymphocytes Absolute Auto 0.6 X10*3/uL (1.2-4.9); Lymphocytes Percent Auto 20.5 % (20-40); Mean Corpuscular HGB Conc 31.6 g/dl (31.0-35.0); Mean Corpuscular Hemoglobin 29.1 pg (27.0-33.0); Mean Corpuscular Volume 92.3 fL (80.0-98.0); Mean Platelet Volume 11.2 fL (9.4-12.3); Monocytes Absolute Auto 0.3 X10*3/uL (0.1-1.2); Monocytes Percent Auto 12.7 % (2-11); Neutrophils Absolute Auto 1.6 x10*3/uL (2.0-8.3); Neutrophils Percent Auto 58.2 % (45-73); Platelet Count 138 X10*3/uL (160-400); Red Blood Count 2.85 X10*6/uL (4.20-5.50); Red Cell Distribution Width 14.6 % (11.0-16.0); White Blood Count 2.7 X10*3/uL (4.8-10.8)
[2025-01-15] MEDS: 0.9 % Sodium Chloride 1,000 ML 999 ML IV (09:19)
--- OUTSIDE RECORDS SUMMARY | 2025-01-15 09:25 | XMS_ITS | Clinical Summary ---
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
--- OUTSIDE RECORDS SUMMARY | 2025-01-15 09:25 | XMS_ITS | Data Portability ---
Author Organization [facility] Internal [facility], Home Service Address [address] [place] [address] Assessment No assessment recorded. Plan of Treatment Reminders Order Date Submit Date Provider Last Modified By Organization Details Last Modified Time Details Appointments None recorded. Lab BMP, blood [address] Internal Medicine, [address] [place] [address], [facility] [[email or web address] D, [place], [address], 9 07:42:19 lipid panel, blood [address] Internal [facility], [address] [place] [address], [facility] [[email or web address] D, [place], [address], 9 07:42:20 Referral None recorded. Procedures None recorded. Surgeries None recorded. Imaging None recorded. Medication Orders Cipro 500 mg tablet 2018 019 [id number], [address], [place], [id number], 9 11:53:38 Zithromax Z-Rajesh 250 mg tablet 2018 019 [id number], [address], [place], [id number], 9 11:53:23 metoprolol succinate ER 25 mg tablet,exte nded release 24 hr 2018 [id number], [address], [place], [id number], 9 11:15:40 Patient Targets Encounter Date Encounter Id Patient Goals Patient Target Last Modified By Organization Details Last Modified Time Call therapist to schedule counseling marilynn Not available 09/26/2018 11:54:07 Patient Instructions Encounter Date Encounter Id Patient Instructions Last Modified By Organization Details Last Modified Time 09/21/2018 [id number] Relaxation, reconsider escitalopram- will review at f/u next week to avoid dual med starting together marilynn Not available 09/21/2018 15:27:44 09/26/2018 [id number] pulse oximetry* marilynn Not available 09/26/2018 11:54:08 10/08/2018 [id number] Acute Sinusitis: Care Instructions marilynn Not available 10/08/2018 11:28:17 pulse oximetry* marilynn Not available 10/08/2018 11:28:17 12/04/2018 [id number] pulse oximetry* marilynn Not available 12/04/2018 12:22:51 Reason for Referral None Reported. Results Created Date Observation Date Name Description Value Unit Range Abnormal Flag Note LastModifiedBy Organization Detail LastModifiedTime 09/26/19 19 09/26/2018 pulse oxime try* Result 96 Not Available [facility] [address], [address], 09/26/2018 11:15:30 10/08/19 19 10/08/2018 pulse oxime try* Result 97 Not Available [facility] Internal [address], [address], 10/08/2018 11:18:00 12/05/19 19 12/04/2018 pulse oxime try* Result 97 Not Available [facility] Internal [address], [address], 12/04/2018 11:55:20 Result Notes None recorded. Problems Name Problem SNOMED Code Status Onset Date Resolution Date Notes Provider Name and Address Organization Details Recorded Time Abdominal aortic aneurysm 820902475 Active 2017 Samina Lama NP, [address] [place], [address], [facility] 8 13:58:39 Diverticul itis 166773976 Active 2017 Tainaronnell Hanson [facility] 8 16:58:14 Chronic obstructiv e pulmonary disease 48000894 [facility] 16:58:22 Aortic valve stenosis 58288421 Active 2017 [place] [facility] 8 16:58:36 Anxiety 67503185 Active 2017 [facility] 8 16:58:45 Cystocele 449528316 Active 2017 [place] [facility] 8 16:58:58 Problem Notes None recorded. Medical Equipment None Reported. Allergies Allergen ID Allergen Name Allergen Category Reaction Reaction Severity Criticality Documentation Date Start Date Code Code System Note Provider Name and Address Organization Details Recorded Time 1547 Substance with sulfonami de structure and antibacte rial mechanism of action (substanc e) medicatio n Not available Not available Not available 02/06/2018 00595 8003 SNOMED Tainaronnell Hanson [facility] 8 16:57:43 1548 Keflex medicatio n Not available Not available Not available 02/06/2018 7 RxNorm Tainaronnell Hanson [facility] 8 16:57:55 2328 Flagyl medicatio n other moderate Not available 05/29/201817252 6 RxNorm Tainaronnell Hanson [facility] 8 11:44:55 2717 metoprolo l Not available chest pain Not available Not available 09/21/2018 6918 RxNorm Tainaronnell Hanson [facility] 9 16:31:23 Medications Name Sig Start Date [...] % 128 mm[Hg] 84 mm[Hg] Taina Hanson [facility] 9 14:32:26 Date Recorded Body height Heart rate Oxygen saturation Oxygen saturation in Arterial blood by Pulse oximetry Systolic blood pressure Diastolic blood pressure Provider Name and Address Organization Details Last Updated DateTime 9 168.91 cm 90 /min 96 % 96 % 124 mm[Hg] 80 mm[Hg] Eunice Molina [facility] 9 11:17:24 Date Recorded Body height Oxygen saturation Oxygen saturation in Arterial blood by Pulse oximetry Heart rate Body temperature Systolic blood pressure Diastolic blood pressure Provider Name and Address Organization Details Last Updated DateTime 9 168.91 cm 97 % 97 % 112 /min 98.2 [degF] 142 mm[Hg] 86 mm[Hg] Tainaronnell Hanson [facility] 9 11:17:37 Date Recorded Heart rate Provider Name an d Address Organization Details Last Updated DateTime 10/08/2018 84 /min Samina Lama NP, [address] [place], [address], [facility] 10/08/2018 11:28:37 Date Recorded Body height Heart rate Oxygen saturation Oxygen saturation in Arterial blood by Pulse oximetry Systolic blood pressure Diastolic blood pressure Provider Name and Address Organization Details Last Updated DateTime 9 168.91 cm 105 /min 98 % 98 % 140 mm[Hg] 80 mm[Hg] [facility] 9 11:45:01 Date Recorded Heart rate Provider Name an d Address Organization Details Last Updated DateTime 10/19/2018 80 /min Samina Lama NP, [address] [place], [address], [facility] 10/19/2018 12:04:58 Date Recorded Body height Body mass index (BMI) Body weight Oxygen saturation Oxygen saturation in Arterial blood by Pulse oximetry Heart rate Systolic blood pressure Diastolic blood pressure Provider Name and Address Organization Details Last Updated DateTime 9 168.91 cm 31.1 kg/m2 92467.6 7 g 97 % 97 % 97 /min 120 mm[Hg] 90 mm[Hg] Dahiana Ha [facility] 9 11:56:24 Social History Question Answer Notes LastModified by Organizat ion Details LastModified Time Tobacco Smoking Status Former Smoker Not Available [facility] 07/07/2020 03:36:24 What Was The Date Of Your Most Recent Tobacco Screening? 12/04/2018 [id number] Information not available 07/07/2020 Sex: Unknown Functional [...] virus, quadrivalent, preservative 8 completed Eunice damon [facility] 09/26/2018 11:16:26 Past Encounters Encounter ID Performer Location Encounter Start Date Encounter Closed Date Diagnosis/Indication Diagnosis SNOMED-CT Code Diagnosis ICD10 Code Diagnosis Note [id number] Deny Saleh DO [facility] [address] [facility],[place] [address] 02/07/2018 11:02:27 02/07/2018 16:46:02 Anxiety 61838558 F41.9 Nail changes 713610310 L 60.9 Abdominal aortic aneurysm 899483512 I71.4 CT 11/2017, no changes 2016, 2.85 cm Aortic david nosis, non-rheumatic 599918256 I35.0 stable Gastroesop hageal reflux disease 006136472 K21.9 d/c yajaira mints, call if persists Insomnia 551822229 G47.0 0 review proper sleep hygiene be more active during day avoid naps [id number] Deny Saleh [facility] Internal Medicine [address] [facility],[place] [address] 03/16/2018 11:29:23 03/20/2018 08:12:01 Dehydration 61846561 E86.0 Gastroenteritis 90891353 K52.9 Aortic valve stenosis 60 984814 I35.0 stable, follow [id number] Deny SawyerGeremias Saleh [facility] [address] [facility], [place] [address] 05/16/2018 13:23:14 05/16/2018 14:06:44 Anxiety 79304950 F41.9 BID lorazepam helps Aortic valve stenosis 60 392119 I35.0 stable, echo 05/31/2017 Active or passive immunization 657143138 Z23 Abdominal aortic aneurysm 838871016 I71.4 CT 11/2017, no changes 2016, 2.85 cm Chronic ob structive pulmonary disease 05622570 J44.9 Non smoker X years, asymptomat ic Diverticular disease 397 034040 K57.90 no recent flare [id number] Deny SawyerGeremias Saleh [facility] Internal [facility] [address] [facility], [place] [address] 05/29/2018 11:40:58 05/29/2018 16:52:51 Aortic valve stenosis 39173271 I35.0 stable, echo 05/31/2017 Anxiety 79818455 F41.9 BID lorazepam helps, discussed current fears re: Constipation 59139146 K5 9.00 [id number] Deny SawyerGeremias Saleh [facility] Internal Medicine [address] [facility], [place] [address] 08/14/2018 11:20:27 08/14/2018 17:00:16 Anxiety 38679720 F41.9 BID lorazepam helps, discussed current fears Aortic valve stenosis 60 154628 I35.0 stable, echo 05/31/2017 Diverticulitis 525556706 K57.92 Increased frequency of urination 246816627 R35.0 [id number] Deny Dori Saleh [facility] Internal Medicine [address] [facility], [place] [address] 08/20/2018 11:12:33 08/20/2018 12:20:46 Anxiety 63420860 F41.9 BID alprazolam helps, discussed current fears Diverticulitis 144040931 K57.92 Aortic valve stenosis 60 865535 I35.0 stable, echo 05/31/2017 Family problems 23900330 4 Z63.79 Suggest therapy, names provided. Pt agrees [id number] Deny Dori Saleh [facility] [address] [facility], [place] [address] 09/12/2018 10:19:31 09/12/2018 20:18:16 Abdominal aortic aneurysm 382599390 I71.4 CT 11/2017, no changes 2016, 2.85 cm Chronic ob structive pulmonary disease 52188293 J44.9 Non smoker X years, asymptomat ic Anxiety 57235558 F41.9 BID alprazolam helps, discussed current fears Aortic valve stenosis 60 151903 I35.0 stable, echo 05/31/2017 [id number] Deny SawyerGeremias Saleh [facility] Internal [facility] [address] [facility], [place] [address] 09/21/2018 14:26:58 09/25/2018 11:17:00 Anxiety 43606122 F41.9 discussed current fears again, see below Aortic valve stenosis 60 512013 I35.0 [id number] Deny Saleh [facility] Internal Medicine [address] [facility] [place], [place] [address] 09/26/2018 11:12:05 09/26/2018 13:02:53 Hypertensive disorder 93632475 I10 Chronic ob structive pulmonary disease 48496470 J44.9 Non smoker X years, asymptomat ic Anxiety 24262918 F41.9 discussed current fears again, see below Aortic valve stenosis 60 456518 I35.[place] [id number] Deny Saleh [facility] Internal Medicine [address] [facility] [address], [place] [address] 10/08/2018 11:12:38 10/08/2018 14:35:10 Cough 95176414 R05 Acute sinusitis 27255269 J01.90 Anxiety 07378547 F41.9 revisited [id number] [facility] [address] [facility],[place] [address] 10/19/2018 11:41:00 10/19/2018 12:37:34 Diverticulitis 900299059 K57.92 Intolerant Flagyl Anxiety 44339118 F41.9 revisited Aortic valve stenosis 60 231841 I35.0 asymptomat ic Abdominal aortic aneurysm 946374547 I71.4 CT 11/2017, no changes 2016, 2.85 cm Chronic ob structive pulmonary disease 58360038 J44.9 Non smoker X [place] [id number] [facility] [address] [facility],[place] [address] 12/04/2018 11:49:58 12/04/2018 16:03:42 Chronic obstructive pulmonary disease 32104623 J44.9 Non smoker X years, asymptomat ic Anxiety 27129153 F41.9 revisited Aortic valve stenosis 60 897490 I35.0 asymptomat ic Health Concerns Section Related Observation LastModified by Organization Detai ls LastModified Time None Recorded Concern Status LastModified by Organization Details LastModified Time None Recorded Advance Directives Directive None Recorded Payers Encounter Date Sequence Insurance Name Policy Number Policy Berry Covered Member ID Berry Member ID Guarantor Name 09/21/2018 2 [employer] - [employer] [id number] Bella Keith Kale [id number] [facility]/2018 1 MEDICARE B-[place]: [facility] Bella Sagar Kale [id number] Bella [place] 09/26/2018 2 [facility] [employer] [id number] Bella Keith Kale [id number] Eblla [place] 09/26/2018 1 MEDICARE B-KS: [employer] Bella Sagar Kale [id number] Bella [place] 10/08/2018 2 [facility] [employer] [id number] Bella Keith Kale [id number] [place] 10/08/2018 1 MEDICARE B-[place]: [facility] Bella [place] [id number] Bella [place] 10/19/2018 2 [facility] [id number] Bella Henley [id number] Bella [place] 10/19/2018 1 MEDICARE B-[place]: [facility] Bella Henley [id number] Bella [place] 12/04/2018 2 [facility] [id number] Bella Henley [id number] Bella [place] 12/04/2018 1 MEDICARE B-[place]: [facility] Bella Henley [id number] Bella [place] Notes Date Note Type Note Provider Name a nd Address Organization Details Recorded Time 09/21/2018 text/html Here with concer ns BP had panic attack this am, ambulance was called Checked BP after pts episode was 158/101 Did not start escitalopram prescribed last week , under a great deal of stress Samina Lama NP, [address] [place], [address], [facility] 09/21/2018 15:27:56 09/26/2018 text/html [...] complete ADL's Samina Lama NP, [address] [place], [address], [facility] 09/26/2018 11:54:50 10/08/2018 text/html [...] family situation Samina Lama NP, S [address] [place], [address], [facility] 10/08/2018 11:49:45 10/19/2018 text/html Yesterday felt o k last night ate 1/2 roast facing grinder-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 this a.m. also increased voiding w/no dysuria no N/V/D/C, no BRBPR or hematuria Samina Lama NP, S [address] [place], [address], [facility] 10/19/2018 12:09:27 12/04/2018 text/html Very anxious re: husbands cognitive decline/getting worn out In therapy w/Peter Dopp Son also recent renal cancer, surgery went well.-but pt. gets worked up over everything pt recently started back on allergy shots some heartburn and post nasal drip Samina Lama NP, [address] [place], [address], [facility] 12/04/2018 12:23:16 OBGyn Episode No OBEpisode recorded.
[2025-01-15 10:02] LABS: Influenza A PCR NEGATIVE (Negative); Influenza B PCR NEGATIVE (Negative); Resp Syncy Virus RNA Qual PCR NEGATIVE (Negative); SARS COV2 PCR INHOUSE NEGATIVE (Negative)
--- NOTE | 2025-01-15 11:24 | PC.NURSE ---
Report received. Taken over care at this time.
[2025-01-15 12:42] LABS: Troponin-I High Sensitivity 6.7 ng/L (<3.5-17.0)
[2025-01-15] MEDS: ondansetron HCL 4 MG/2 ML VIAL IVPUSH (13:23)
--- NOTE | 2025-01-15 13:37 | PC.NURSE ---
Report given to TERRA Herr.
--- NOTE | 2025-01-15 14:24 | PC.NURSE ---
report taken from main ER. pt arrived to unit, able to stand and xfer to bed from stretcher. PT evaluating pt. belongings list updated on hard copy. pt's son contacted and updated with pt's new room. informed pt requesting food, diet order needed.
--- NOTE | 2025-01-15 16:08 | MHC.CM.ED ---
Received case management consult from Lauren GAVIN. Patient is well known to due to frequent ER visits. Patient came to the ER due to chest pain. Work up essentially negative. Physical therapy eval completed. Home with services is recommended. Attempted to meet with patient in regards to discharge planning. Patient currently in the bathroom. Spoke with patient's son Hi, via telephone at [phone]. Hi is concerned about patient's memory. Hi does verbalize that patient had cognitive testing last week. Also verbalized that patient has an appointment with her therapist, Janene Huber on Monday and a neuro appointment on with Dr White for follow up. T/W encouraged Hi to keep those appointments and accompany patient so that his concerns can be presented to patient's providers. Hi curious about STR or assisted living. T/W explained patient passed physical therapy and that STR would be privately paid which typically costs $6,000-8,000 for 2 weeks up front. Also explained assisted living typically costs $8,000 per month. T/W also explained patient would have to be agreeable to STR placement. Hi verbalized understanding. Patient is currently active with [facility]. Met with patient in regards to discharge planning. Above information relayed to patient. Patient does not feel private pay STR is necessary and feels she can safely return home with resumption of services. Patient acknowledges she has memory issues and verbalizes she will follow up with Dr White and Janene. Hi will transport patient home. Patient, Nemesio Do RN and Lauren GAVIN aware. Continue to monitor for d/c needs.
== END 2025-01-15 16:22 | disposition home or self-care (01) ==
PROVIDERS: Physician Assistant; Emergency Provider Emergency Medicine; PCP Internal Medicine
DX: R07.89 Other chest pain (principal); R05.9 Cough, unspecified; R11.0 Nausea; I10 Essential (primary) hypertension; R42 Dizziness and giddiness; R26.81 Unsteadiness on feet; Z79.899 Other long term (current) drug therapy; Z03.818 Encounter for observation for suspected exposure to other biological agents ruled out
CPT/HCPCS: 0241U; 36415; 71046; 80048; 80076; 83735; 84484; 85025; 93005; 96361; 96374; 97162; 99284; 99285; J2405

== ENCOUNTER → 2025-01-15 08:19 | Outpatient (BNV) | payer MEDICARE, OTHER, SELFPAY | PROVIDERS: PCP Internal Medicine; Visit Provider Internal Medicine Cardiovascular Disease | DX: I44.0 Atrioventricular block, first degree (principal) | CPT/HCPCS: 93010 ==

== ENCOUNTER → 2025-01-15 08:38 | Outpatient (BNV) | payer MEDICARE, OTHER, SELFPAY | PROVIDERS: Emergency Provider Emergency Medicine; PCP Internal Medicine; Visit Provider Radiology Diagnostic Radiology | DX: R07.9 Chest pain, unspecified (principal) | CPT/HCPCS: 71046 ==

== ENCOUNTER 2025-01-30 14:40 | Outpatient (REF) | payer MEDICARE, OTHER, SELFPAY ==
--- OUTSIDE RECORDS SUMMARY | 2025-01-30 14:47 | XMS_ITS | Data Portability ---
Author Organization [facility] Service Address [address] [place] [address] Assessment No assessment recorded. Plan of Treatment Reminders Order Date Submit Date Provider Last Modified By Organization Details Last Modified Time Details Appointments None recorded. Lab BMP, blood [address] [facility], [address] [place] [address], [facility], [place], [address], 9 07:42:19 lipid panel, blood [address] [facility], [address] [place] [address], [facility] D, [place], [address], 9 07:42:20 Referral None recorded. Procedures None recorded. Surgeries None recorded. Imaging None recorded. Medication Orders Cipro 500 mg tablet 2018 019 [id number], [address], [place], [id number], 9 11:53:38 Zithromax Z-Rajesh 250 mg tablet 2018 019 [facility] #[id number], [address], [place], [id number], 9 11:53:23 metoprolol succinate ER 25 mg tablet,exte nded release 24 hr 2018 019 [facility], [address], [place], [id number], 9 11:15:40 Patient Targets Encounter Date Encounter Id Patient Goals Patient Target Last Modified By Organization Details Last Modified Time Call therapist to schedule counseling marilynn Not available 09/26/2018 11:54:07 Patient Instructions Encounter Date Encounter Id Patient Instructions Last Modified By Organization Details Last Modified Time 09/21/2018 [id number] Relaxation, reconsider escitalopram- will review at f/u next week to avoid dual med starting together marilynn Not available 09/21/2018 15:27:44 09/26/2018 [id number] pulse oximetry* marilynn Not available 09/26/2018 11:54:08 10/08/2018 [id number] Acute Sinusitis: Care Instructions marilynn Not available 10/08/2018 11:28:17 pulse oximetry* marilynn Not available 10/08/2018 11:28:17 12/04/2018 [id number] pulse oximetry* marilynn Not available 12/04/2018 12:22:51 Reason for Referral None Reported. Results Created Date Observation Date Name Description Value Unit Range Abnormal Flag Note LastModifiedBy Organization Detail LastModifiedTime 09/26/19 19 09/26/2018 pulse oxime try* Result 96 Not Available [facility] [address], [address], 09/26/2018 11:15:30 10/08/19 19 10/08/2018 pulse oxime try* Result 97 Not Available [facility] [address], [address], 10/08/2018 11:18:00 12/05/19 19 12/04/2018 pulse oxime try* Result 97 Not Available [facility] [address], [address], 12/04/2018 11:55:20 Result Notes None recorded. Problems Name Problem SNOMED Code Status Onset Date Resolution Date Notes Provider Name and Address Organization Details Recorded Time Abdominal aortic aneurysm 564161922 Active 2017 Samina Lama NP, [address] [place], [address], [facility] 8 13:58:39 Diverticul itis 907251484 Active 2017 Tainaronnell [facility] 8 16:58:14 Chronic obstructiv e pulmonary disease 16359785 [facility] 16:58:22 Aortic valve stenosis 10293992 [facility] 8 16:58:36 Anxiety 27809411 Active 2017 [facility] 8 16:58:45 Cystocele 971686018 Active 2017 [facility] 8 16:58:58 Problem Notes None recorded. Medical Equipment None Reported. Allergies Allergen ID Allergen Name Allergen Category Reaction Reaction Severity Criticality Documentation Date Start Date Code Code System Note Provider Name and Address Organization Details Recorded Time 1547 Substance with sulfonami de structure and antibacte rial mechanism of action (substanc e) medicatio n Not available Not available Not available 02/06/2018 57947 8003 SNOMED Tainaronnell [facility] 8 16:57:43 1548 Keflex medicatio n Not available Not available Not available 02/06/2018 7 RxNorm Tainaronnell [facility] 8 16:57:55 2328 Flagyl medicatio n other moderate Not available 05/29/201803529 6 RxNorm [facility] 8 11:44:55 2717 metoprolo l Not available chest pain Not available Not available 09/21/2018 6918 RxNorm Tainaronnell [facility] 9 16:31:23 Medications Name Sig Start Date [...] 97 % 128 mm[Hg] 84 mm[Hg] Taina Hetaldonaldo [facility] 9 14:32:26 Date Recorded Body height Heart rate Oxygen saturation Oxygen saturation in Arterial blood by Pulse oximetry Systolic blood pressure Diastolic blood pressure Provider Name and Address Organization Details Last Updated DateTime 9 168.91 cm 90 /min 96 % 96 % 124 mm[Hg] 80 mm[Hg] Eunice Jesse [facility] 9 11:17:24 Date Recorded Heart rate Provider Name an d Address Organization Details Last Updated DateTime 10/08/2018 84 /min Samina Lama NP, S [address] [place] [address], [phone], [facility] 10/08/2018 11:28:37 Date Recorded Body height Oxygen saturation Oxygen saturation in Arterial blood by Pulse oximetry Heart rate Body temperature Systolic blood pressure Diastolic blood pressure Provider Name and Address Organization Details Last Updated DateTime 9 168.91 cm 97 % 97 % 112 /min 98.2 [degF] 142 mm[Hg] 86 mm[Hg] [facility] 9 11:17:37 Date Recorded Heart rate Provider Name an d Address Organization Details Last Updated DateTime 10/19/2018 80 /min Samina Lama NP, S [address] [place] [address], [phone], [facility] 10/19/2018 12:04:58 Date Recorded Body height Heart rate Oxygen saturation Oxygen saturation in Arterial blood by Pulse oximetry Systolic blood pressure Diastolic blood pressure Provider Name and Address Organization Details Last Updated DateTime 9 168.91 cm 105 /min 98 % 98 % 140 mm[Hg] 80 mm[Hg] [facility] 9 11:45:01 Date Recorded Body height Body mass index (BMI) Body weight Oxygen saturation Oxygen saturation in Arterial blood by Pulse oximetry Heart rate Systolic blood pressure Diastolic blood pressure Provider Name and Address Organization Details Last Updated DateTime 9 168.91 cm 31.1 kg/m2 19801.6 7 g 97 % 97 % 97 /min 120 mm[Hg] 90 mm[Hg] Dahiana Ha [facility] 9 11:56:24 Social History Question Answer Notes LastModified by Organizat ion Details LastModified Time Tobacco Smoking Status Former Smoker Not Available [facility] 07[facility]07/2020 03:36:24 What Was The Date Of Your Most Recent Tobacco Screening? 12/04/2018 [id number] Information not available 07/07/2020 Sex: Unknown Functional [...] virus, quadrivalent, preservative 8 completed Eunice damon [facility] 09/26/2018 11:16:26 Past Encounters Encounter ID Performer Location Encounter Start Date Encounter Closed Date Diagnosis/Indication Diagnosis SNOMED-CT Code Diagnosis ICD10 Code Diagnosis Note [id number] Deny Saleh DO [facility] [address] [facility] [place] [address] 02/07/2018 11:02:27 02/07/2018 16:46:02 Anxiety 25238883 F41.9 Nail changes 805733646 L 60.9 Abdominal aortic aneurysm 298977483 I71.4 CT 11/2017, no changes 2016, 2.85 cm Aortic david nosis, non-rheumatic 506455643 I35.0 stable Gastroesop hageal reflux disease 265223491 K21.9 d/c yajaira mints, call if persists Insomnia 164750505 G47.0 0 review proper sleep hygiene be more active during day avoid naps [id number] Deny Saleh [facility] [address] [facility] [address] 03/16/2018 11:29:23 03/20/2018 08:12:01 Dehydration 18327064 E86.0 Gastroenteritis 29678537 K52.9 Aortic valve stenosis 60 589256 I35.0 stable, follow [id number] Deny SawyerGeremias Saleh [facility] [address] [facility], [place] [address] 05/16/2018 13:23:14 05/16/2018 14:06:44 Anxiety 23627417 F41.9 BID lorazepam helps Aortic valve stenosis 60 886071 I35.0 stable, echo 05/31/2017 Active or passive immunization 075726996 Z23 Abdominal aortic aneurysm 891354510 I71.4 CT 11/2017, no changes 2016, 2.85 cm Chronic ob structive pulmonary disease 19714274 J44.9 Non smoker X years, asymptomat ic Diverticular disease 397 034698 K57.90 no recent flare [id number] Deny SawyerGeremias Saleh [facility] [address] [facility], [place] [address] 05/29/2018 11:40:58 05/29/2018 16:52:51 Aortic valve stenosis 97588948 I35.0 stable, echo 05/31/2017 Anxiety 53114058 F41.9 BID lorazepam helps, discussed current fears re: Constipation 56849932 K5 9.00 [id number] Deny SawyerGeremias Saleh [facility] [address] [facility], [place] [address] 08/14/2018 11:20:27 08/14/2018 17:00:16 Anxiety 13990770 F41.9 BID lorazepam helps, discussed current fears Aortic valve stenosis 60 161405 I35.0 stable, echo 05/31/2017 Diverticulitis 155936273 K57.92 Increased frequency of urination 832257213 R35.0 [id number] Deny Dori Saleh [facility] [address] [facility], [place] [address] 08/20/2018 11:12:33 08/20/2018 12:20:46 Anxiety 88340087 F41.9 BID alprazolam helps, discussed current fears Diverticulitis 928866452 K57.92 Aortic valve stenosis 60 948076 I35.0 stable, echo 05/31/2017 Family problems 69893114 4 Z63.79 Suggest therapy, names provided. Pt agrees [id number] Deny Dori Saleh [facility] [address] [facility], [place] [address] 09/12/2018 10:19:31 09/12/2018 20:18:16 Abdominal aortic aneurysm 334315259 I71.4 CT 11/2017, no changes 2016, 2.85 cm Chronic ob structive pulmonary disease 93278810 J44.9 Non smoker X years, asymptomat ic Anxiety 10928600 F41.9 BID alprazolam helps, discussed current fears Aortic valve stenosis 60 042601 I35.0 stable, echo 05/31/2017 [id number] Deny SawyerGeremias Saleh [facility] [address] [facility], [place] [address] 09/21/2018 14:26:58 09/25/2018 11:17:00 Anxiety 29921380 F41.9 discussed current fears again, see below Aortic valve stenosis 60 575176 I35.0 [id number] Deny Saleh [facility] [address] [facility] [place], [place] [place] [address] 09/26/2018 11:12:05 09/26/2018 13:02:53 Hypertensive disorder 82797521 I10 Chronic ob structive pulmonary disease 27063231 J44.9 Non smoker X years, asymptomat ic Anxiety 77469923 F41.9 discussed current fears again, see below Aortic valve stenosis 60 193941 I35[place] [id number] Deny Saleh [facility] [address] [facility] [address], [place] [address] 10/08/2018 11:12:38 10/08/2018 14:35:10 Cough 69518842 R05 Acute sinusitis 78059119 J01.90 Anxiety 12184006 F41.9 revisited [id number] [facility] [address] [facility],[place] [address] 10/19/2018 11:41:00 10/19/2018 12:37:34 Diverticulitis 470430967 K57.92 Intolerant Flagyl Anxiety 09023098 F41.9 revisited Aortic valve stenosis 60 169112 I35.0 asymptomat ic Abdominal aortic aneurysm 787106832 I71.4 CT 11/2017, no changes 2016, 2.85 cm Chronic ob structive pulmonary disease 86528776 J44.9 Non smoker X [place], [place] [id number] [facility] [address] [facility],[place] [address] 12/04/2018 11:49:58 12/04/2018 16:03:42 Chronic obstructive pulmonary disease 37365237 J44.9 Non smoker X years, asymptomat ic Anxiety 15828726 F41.9 revisited Aortic valve stenosis 60 659050 I35.0 asymptomat ic Health Concerns Section Related Observation LastModified by Organization Detai ls LastModified Time None Recorded Concern Status LastModified by Organization Details LastModified Time None Recorded Advance Directives Directive None Recorded Payers Encounter Date Sequence Insurance Name Policy Number Policy Berry Covered Member ID Berry Member ID Guarantor Name 09/21/2018 2 [employer] - [employer] [id number] Bella Keith Kale [id number] [facility] 09/21/2018 1 MEDICARE B-ND: [facility] Bella Sagar Kale [id number] Bella Jay 09/26/2018 2 [facility] [employer]IC[facility] [id number] Bella Keith Kale [id number] Bella Jay 09/26/2018 1 MEDICARE B-ND: [employer] Bella Sagar Kale [id number] Bella Jay 10/08/2018 2 [facility] [id number] Bella Keith Kale [id number] Bellakwasi Henley 10/08/2018 1 MEDICARE B-ND: [facility] Bella Henley [id number] Bella Henley 10/19/2018 2 [facility] [id number] Bella Henley [id number] Bella Henley 10/19/2018 1 MEDICARE B-ND: [facility] Bella Henley [id number] Bella Henley 12/04/2018 2 [facility] [id number] Bella Henley [id number] Bella Henley 12/04/2018 1 MEDICARE B-ND: [facility] Bella Henley [id number] Bella Henley Notes Date Note Type Note Provider Name a nd Address Organization Details Recorded Time 09/21/2018 text/html Here with concer ns BP had panic attack this am, ambulance was called Checked BP after pts episode was 158/101 Did not start escitalopram prescribed last week , under a great deal of stress Samina Lama NP, [address] [place], [address], [facility] 09/21/2018 15:27:56 09/26/2018 text/html [...] complete ADL's Samina Lama NP, [address] [place], [address], [facility] 09/26/2018 11:54:50 10/08/2018 text/html [...] family situation Samina Lama NP, [address] [place], [address], [facility] 10/08/2018 11:49:45 10/19/2018 text/html Yesterday felt o k last night 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 this a.m. also increased voiding w/no dysuria no N/V/D/C, no BRBPR or hematuria Samina Lama NP, [address] [place], [address], [facility] 10/19/2018 12:09:27 12/04/2018 text/html Very anxious re: husbands cognitive decline/getting worn out In therapy w/Peter Dopp Son also recent renal cancer, surgery went well.-but pt. gets worked up over everything pt recently started back on allergy shots some heartburn and post nasal drip Samina Lama NP, [address] [place], [address], [facility] 12/04/2018 12:23:16 OBGyn Episode No OBEpisode recorded.
== END 2025-01-30 14:41 | disposition home or self-care (01) ==
LOC: HO.HVNA 14:40
PROVIDERS: Visit Provider Internal Medicine
DX: N39.0 Urinary tract infection, site not specified (principal)
CPT/HCPCS: 87086

== ENCOUNTER 2025-02-06 11:45 | Outpatient (REF) | payer MEDICARE, OTHER, SELFPAY ==
[2025-02-06 11:52] LABS: Appearance Urine Clear; Color Urine Yellow; Glucose Urine UA Negative (Negative); Leukocyte Esterase Urine Trace (Negative); Nitrite Urine Negative (Negative); UMIC TRIGGER UACC YES; Urine Blood Negative (Negative); Urine Ketones Negative (Negative); Urine Protein Negative (Neg-Trace)
[2025-02-06 11:54] LABS: Bacteria Urine None Seen (None Seen); Hyaline Casts Urine 0-2 /LPF (0-2); RBC Urine 0-2 /HPF (0-2); Squamous Epithelial Cell Urine 0-2 /HPF (0-2); WBC Urine 0-5 /HPF (0-5)
--- OUTSIDE RECORDS SUMMARY | 2025-02-06 13:56 | XMS_ITS | Data Portability ---
Author Organization [facility] Internal Medicine, Telehealth Patient Home Address [address] [place] [phone] Assessment No assessment recorded. Plan of Treatment Reminders Order Date Submit Date Provider Last Modified By Organization Details Last Modified Time Details Appointments None recorded. Lab BMP, blood [address] Internal Medicine, [address] [place] [address], [place], [address], 9 07:42:19 lipid panel, blood [address] Internal [facility], [address] [place] [address], [place], [address], 9 07:42:20 Referral None recorded. Procedures None recorded. Surgeries None recorded. Imaging None recorded. Medication Orders Cipro 500 mg tablet 2018 019 [id number], [address], [place], [id number], 9 11:53:38 Zithromax Z-Rajesh 250 mg tablet 2018 019 [facility] #[id number], [address], [place], [id number], 9 11:53:23 metoprolol succinate ER 25 mg tablet,exte nded release 24 hr 2018 [id number], [address], [place], [id number], 9 11:15:40 Patient Targets Encounter Date Encounter Id Patient Goals Patient Target Last Modified By Organization Details Last Modified Time Call therapist to schedule counseling mindyerlinda Not available 09/26/2018 11:54:07 Patient Instructions Encounter Date Encounter Id Patient Instructions Last Modified By Organization Details Last Modified Time 09/21/2018 [id number] Relaxation, reconsider escitalopram- will review at f/u next week to avoid dual med starting together marilynn Not available 09/21/2018 15:27:44 09/26/2018 [id number] pulse oximetry* marilynn Not available 09/26/2018 11:54:08 10/08/2018 [id number] Acute Sinusitis: Care Instructions marilynn Not available 10/08/2018 11:28:17 pulse oximetry* marilynn Not available 10/08/2018 11:28:17 12/04/2018 [id number] pulse oximetry* marilynn Not available 12/04/2018 12:22:51 Reason for Referral None Reported. Results Created Date Observation Date Name Description Value Unit Range Abnormal Flag Note LastModifiedBy Organization Detail LastModifiedTime 09/26/19 19 09/26/2018 pulse oxime try* Result 96 Not Available [facility] [address], [address], 09/26/2018 11:15:30 10/08/19 19 10/08/2018 pulse oxime try* Result 97 Not Available [facility] [address], [address], 10/08/2018 11:18:00 12/05/19 19 12/04/2018 pulse oxime try* Result 97 Not Available [facility] [address], [address], 12/04/2018 11:55:20 Result Notes None recorded. Problems Name Problem SNOMED Code Status Onset Date Resolution Date Notes Provider Name and Address Organization Details Recorded Time Abdominal aortic aneurysm 193802884 Active 2017 Samina Lama NP, [address] [place], [address], [facility] 8 13:58:39 Diverticul itis 687244541 [facility] 8 16:58:14 Chronic obstructiv e pulmonary disease 01120456 [facility] 2017 [facility] 8 16:58:22 Aortic valve stenosis 30646599 Active 2017 [facility] 8 16:58:36 Anxiety 64922780 Active 2017 [facility] 8 16:58:45 Cystocele 780578927 [facility] 2017 [facility] 8 16:58:58 Problem Notes None recorded. Medical Equipment None Reported. Allergies Allergen ID Allergen Name Allergen Category Reaction Reaction Severity Criticality Documentation Date Start Date Code Code System Note Provider Name and Address Organization Details Recorded Time 1547 Substance with sulfonami de structure and antibacte rial mechanism of action (substanc e) medicatio n Not available Not available Not available 02/06/2018 07299 8003 SNOMED Tainaronnell Hanson [facility] 8 16:57:43 1548 Keflex medicatio n Not available Not available Not available 02/06/201882296 7 RxNorm Tainaronnell Hanson [facility] 8 16:57:55 2328 Flagyl medicatio n other moderate Not available 05/29/201865715 6 RxNorm Tainaronnell Hanson [facility] [...] % 128 mm[Hg] 84 mm[Hg] Taina Hetaldonaldo [facility] 9 14:32:26 Date Recorded Body height Heart rate Oxygen saturation Oxygen saturation in Arterial blood by Pulse oximetry Systolic blood pressure Diastolic blood pressure Provider Name and Address Organization Details Last Updated DateTime 9 168.91 cm 90 /min 96 % 96 % 124 mm[Hg] 80 mm[Hg] Eunice Jesse [facility] 9 11:17:24 Date Recorded Heart rate Provider Name an d Address Organization Details Last Updated DateTime 10/08/2018 84 /min Samina Lama NP, [address] [place], [address], [facility] 10/08/2018 11:28:37 Date Recorded Body height Oxygen saturation Oxygen saturation in Arterial blood by Pulse oximetry Heart rate Body temperature Systolic blood pressure Diastolic blood pressure Provider Name and Address Organization Details Last Updated DateTime 9 168.91 cm 97 % 97 % 112 /min 98.2 [degF] 142 mm[Hg] 86 mm[Hg] [facility] 11:17:37 Date Recorded Heart rate Provider Name an d Address Organization Details Last Updated DateTime 10/19/2018 80 /min Samina Lama NP, S [address] [place] [address], [address], [facility] 10/19/2018 12:04:58 Date Recorded Body height Heart rate Oxygen saturation Oxygen saturation in Arterial blood by Pulse oximetry Systolic blood pressure Diastolic blood pressure Provider Name and Address Organization Details Last Updated DateTime 9 168.91 cm 105 /min 98 % 98 % 140 mm[Hg] 80 mm[Hg] [facility] 9 11:45:01 Date Recorded Body height Body mass index (BMI) Body weight Oxygen saturation Oxygen saturation in Arterial blood by Pulse oximetry Heart rate Systolic blood pressure Diastolic blood pressure Provider Name and Address Organization Details Last Updated DateTime 9 168.91 cm 31.1 kg/m2 72175.6 7 g 97 % 97 % 97 /min 120 mm[Hg] 90 mm[Hg] Dahiana Ha [facility] 9 11:56:24 Social History Question Answer Notes LastModified by Organizat ion Details LastModified Time Tobacco Smoking Status Former Smoker Not Available [facility]07[facility]2020 03:36:24 What Was The Date Of Your Most Recent Tobacco Screening? 12/04/2018 [id number] Information not available 07/07/2020 Sex: Unknown Functional [...] virus, quadrivalent, preservative 8 completed Eunice damon [facility] 09/26/2018 11:16:26 Past Encounters Encounter ID Performer Location Encounter Start Date Encounter Closed Date Diagnosis/Indication Diagnosis SNOMED-CT Code Diagnosis ICD10 Code Diagnosis Note [id number] Deny Saleh DO [facility] [address] [facility],[place] [address] 02/07/2018 11:02:27 02/07/2018 16:46:02 Anxiety 72493950 F41.9 Nail changes 319704291 L 60.9 Abdominal aortic aneurysm 234344457 I71.4 CT 11/2017, no changes 2016, 2.85 cm Aortic david nosis, non-rheumatic 008543254 I35.0 stable Gastroesop hageal reflux disease 430109898 K21.9 d/c yajaira mints, call if persists Insomnia 922883201 G47.0 0 review proper sleep hygiene be more active during day avoid naps [id number] Deny Saleh [facility] Internal Medicine [address] [address],[place] [address] 03/16/2018 11:29:23 03/20/2018 08:12:01 Dehydration 56535575 E86.0 Gastroenteritis 60929033 K52.9 Aortic valve stenosis 60 376439 I35.0 stable, follow [id number] Deny SawyerGeremias Saleh [facility] Internal [facility] [address], [place] [address] 05/16/2018 13:23:14 05/16/2018 14:06:44 Anxiety 80098193 F41.9 BID lorazepam helps Aortic valve stenosis 60 853699 I35.0 stable, echo 05/31/2017 Active or passive immunization 424483619 Z23 Abdominal aortic aneurysm 649193362 I71.4 CT 11/2017, no changes 2016, 2.85 cm Chronic ob structive pulmonary disease 46084225 J44.9 Non smoker X years, asymptomat ic Diverticular disease 397 168689 K57.90 no recent flare [id number] Deny Dori Saleh [facility] Internal Medicine [address] [facility], [place] [address] 05/29/2018 11:40:58 05/29/2018 16:52:51 Aortic valve stenosis 37791272 I35.0 stable, echo 05/31/2017 Anxiety 14271903 F41.9 BID lorazepam helps, discussed current fears re: Constipation 08323998 K5 9.00 [id number] Deny SawyerGeremias Saleh [facility] Internal Medicine [address], [place] [address] 08/14/2018 11:20:27 08/14/2018 17:00:16 Anxiety 38545881 F41.9 BID lorazepam helps, discussed current fears Aortic valve stenosis 60 925063 I35.0 stable, echo 05/31/2017 Diverticulitis 514451176 K57.92 Increased frequency of urination 998506314 R35.0 [id number] Deny Dori Saleh [facility] Internal Medicine [address], [place] [address] 08/20/2018 11:12:33 08/20/2018 12:20:46 Anxiety 38316713 F41.9 BID alprazolam helps, discussed current fears Diverticulitis 061133357 K57.92 Aortic valve stenosis 60 169766 I35.0 stable, echo 05/31/2017 Family problems 94068373 4 Z63.79 Suggest therapy, names provided. [place] agrees [id number] Deny SawyerGeremias Saleh [facility] Medicine [address], [place] [address] 09/12/2018 10:19:31 09/12/2018 20:18:16 Abdominal aortic aneurysm 600197984 I71.4 CT 11/2017, no changes 2016, 2.85 cm Chronic ob structive pulmonary disease 69568469 J44.9 Non smoker X years, asymptomat ic Anxiety 86790544 F41.9 BID alprazolam helps, discussed current fears Aortic valve stenosis 60 443026 I35.0 stable, echo 05/31/2017 [id number] Deny SawyerGeremias Saleh [facility] Internal [facility] [address] [address], [place] [address] 09/21/2018 14:26:58 09/25/2018 11:17:00 Anxiety 45390997 F41.9 discussed current fears again, see below Aortic valve stenosis 60 472566 I35.0 [id number] Deny Saleh [facility] Internal Medicine [address] [facility] [address], [address] [facility] [place] [address] 09/26/2018 11:12:05 09/26/2018 13:02:53 Hypertensive disorder 12228281 I10 Chronic ob structive pulmonary disease 63229016 J44.9 Non smoker X years, asymptomat ic Anxiety 27419080 F41.9 discussed current fears again, see below Aortic valve stenosis 60 726415 I35[place] [id number] Deny Saleh [facility] Internal Medicine [address] [facility] [address], [place] [address] 10/08/2018 11:12:38 10/08/2018 14:35:10 Cough 03603650 R05 Acute sinusitis 62397329 J01.90 Anxiety 25539678 F41.9 revisited [id number] [facility] [address] [facility],[place] [address] 10/19/2018 11:41:00 10/19/2018 12:37:34 Diverticulitis 145865681 K57.92 Intolerant Flagyl Anxiety 53190771 F41.9 revisited Aortic valve stenosis 60 278060 I35.0 asymptomat ic Abdominal aortic aneurysm 824261148 I71.4 CT 11/2017, no changes 2016, 2.85 cm Chronic ob structive pulmonary disease 90731437 J44.9 Non [place], [place] [id number] [facility] [address] [facility],[place] [address] 12/04/2018 11:49:58 12/04/2018 16:03:42 Chronic obstructive pulmonary disease 11356681 J44.9 Non smoker X years, asymptomat ic Anxiety 62856641 F41.9 revisited Aortic valve stenosis 60 183717 I35.0 asymptomat ic Health Concerns Section Related Observation LastModified by Organization Detai ls LastModified Time None Recorded Concern Status LastModified by Organization Details LastModified Time None Recorded Advance Directives Directive None Recorded Payers Encounter Date Sequence Insurance Name Policy Number Policy Berry Covered Member ID Berry Member ID Guarantor Name 09/21/2018 2 [facility] [employer] [id number] Bella Keith Kale [id number] Bella [place] 09/21/2018 1 MEDICARE B-UT: [facility] Bella Sagar Kale [id number] Bella [place] 09/26/2018 2 [facility] [employer] [id number] Bella Keith Kale [id number] Bella [place] 09/26/2018 1 MEDICARE B-UT: [employer] Bella Sagar Kale [id number] Bella [place] 10/08/2018 2 [facility] IN[facility] - [employer] [id number] Bella Keith Kale [id number] Bella [place] 10/08/2018 1 MEDICARE B-UT: [facility] Bella [place] [id number] Bella [place] 10/19/2018 2 [facility] [id number] Bella Henley [id number] Bella [place] 10/19/2018 1 MEDICARE B-UT: [facility] Bella Henley [id number] Bella [place] 12/04/2018 2 [facility] [id number] Bella Henley [id number] Bella [place] 12/04/2018 1 MEDICARE B-UT: [facility] Bella Henley [id number] Bella [place] Notes Date Note Type Note Provider Name a nd Address Organization Details Recorded Time 09/21/2018 text/html Here with concer ns BP had panic attack this am, ambulance was called Checked BP after pts episode was 158/101 Did not start escitalopram prescribed last week , under a great deal of stress Samina Lama NP, [address] [place], [address], [facility] 09/21/2018 15:27:56 [...] complete ADL's Samina Lama NP, [address] [place], [address], [facility] 09/26/2018 11:54:50 [...] family situation Samina Lama NP, [address] [place], [address], [facility] 10/08/2018 11:49:45 10/19/2018 text/html Yesterday felt o k last night ate 1/2 roast slab grinder-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 this a.m. also increased voiding w/no dysuria no N/V/D/C, no BRBPR or hematuria Samina Lama NP, [address] [place], [address], [facility] 10/19/2018 12:09:27 12/04/2018 text/html Very anxious re: husbands cognitive decline/getting worn out In therapy w/Norberto Dopp Son also recent renal cancer, surgery went well.-but pt. gets worked up over everything pt recently started back on allergy shots some heartburn and post nasal drip Samina Lama NP, [address] [place], [address], [facility] 12/04/2018 12:23:16 OBGyn Episode No OBEpisode recorded.
== END 2025-02-06 11:46 | disposition home or self-care (01) ==
LOC: HO.HVNA 11:45
PROVIDERS: Visit Provider Internal Medicine
DX: Z13.89 Encounter for screening for other disorder (principal)
CPT/HCPCS: 81001

== ENCOUNTER 2025-02-09 14:53 | Inpatient (IN) | payer MEDICARE, OTHER, SELFPAY ==
--- NOTE | 2025-02-09 | ECG_ITS ---
Test Reason : HYPERTENSIVE Blood Pressure : */* mmHG Vent. Rate : 80 BPM Atrial Rate : 80 BPM P-R Int : 230 ms QRS Dur : 88 ms QT Int : 382 ms P-R-T Axes : 52 -4 34 degrees QTcB Int : 440 ms Sinus rhythm with 1st degree A-V block Otherwise normal ECG When compared with ECG of 15-Jan-2025 08:22, No significant change was found Referred By: Erin Stack Electronically Signed By: MICHEL CHARLES MD
--- NOTE | ~2025-02-09 | XR_ITS ---
CLINICAL HISTORY: cp Chest X-ray, 1 View COMPARISON: CR/LA/SR - XR CHEST 2V - 07/22/24 14:50 EST FINDINGS: No consolidation. Pulmonary hyperinflation suggestive of COPD. No pleural effusion. No pneumothorax. No cardiomegaly. No acute fracture. IMPRESSION: No acute findings. This document has been electronically signed by: Fawad Berrios MD on 02/09/2025 16:15:12
--- NOTE | ~2025-02-09 | XR_ITS ---
EXAMINATION: XR SHOULDER 2 OR MORE VIEWS LEFT HISTORY: pain COMPARISON: There are no prior studies available for comparison. FINDINGS: Two views of the left shoulder are submitted. Osseous mineralization is normal. There is no fracture or dislocation. There is mild narrowing of the glenohumeral joint. 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 The soft tissues are unremarkable. XR/XR shoulder LT min 2V IMPRESSION: Degenerative changes of the left shoulder as described. Electronically signed by: Anatoliy Elias MD 02/11/2025 03:33 PM EDT RP
--- NOTE | ~2025-02-09 | CT_ITS ---
CLINICAL HISTORY: hx of diverticulosis with GIB LLQ abd pain CT abdomen and pelvis with contrast Comparison: CT/SR - CT ABDOMEN PELVIS W IV CON - 01/02/25 23:49 EDT Findings: CT abdomen: Emphysematous changes in the lung bases without acute infiltrate. No acute bony lesions. Multilevel degenerative disc disease and degenerative facet disease throughout the visualized portions of the thoracic spine and lumbar spine. Aortic valve prosthesis is evident. Dense vascular calcification of the thoracic aorta, abdominal aorta, and iliac arteries. 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 This is not appreciably changed compared to prior study. There is appropriate contrast within the celiac artery, superior mesenteric artery, and renal arteries. Unchanged cyst within the posterior inferior right lobe of the liver. Additional unchanged cyst within the superior right lobe of the liver measuring 18 mm in size. Main portal vein is patent. Spleen, pancreas, and adrenal glands are unremarkable. Prominent extrarenal pelvis of each kidney. No hydronephrosis or perinephric stranding is evident. CT pelvis: Dense vascular calcification of the abdominal aorta and iliac arteries are evident. Moderate stool throughout the colon. Scattered diverticuli throughout the sigmoid colon. No findings of diverticulitis. Remote fracture deformities of the left superior and inferior pubic rami. IMPRESSION: 1. No acute imaging explanation of the patient's symptoms. Specifically, no findings of diverticulitis. 2. Multifocal vasculopathy. This document has been electronically signed by: Flo Butcher MD on 02/10/2025 01:42:46
[2025-02-09 15:12] VITALS: BP 122/59; PULSE 94; RESP 18; TEMP 36.6; O2SAT 98; BMI 26.3
--- NOTE | 2025-02-09 15:12 | ED.CHESTPAIN ---
HPI - Chest Pain General Chief Complaint: Chest Pain Stated Complaint: chest pain Time Seen by Provider: 02/09/25 18:11 Source: patient History of Present Illness ED Provider: Mel Martin PA-C HPI narrative: 84-year-old female with a history of cognitive impairment, hypertension, aortic stenosis status post TAVR, COPD, CVA, TIA, vertigo, osteoarthritis, who presents with chest pain that started yesterday. Her discomfort has been intermittent and random, unable to describe the nature of her symptoms. Associated light-headedness. Patient states she has been having dark stools for weeks. Denies abdominal pain, nausea vomiting or fever. Denies shortness of breath or diaphoresis. Related Data Home Medications ?Medication ?Instructions ?Recorded ?Confirmed folic acid 400 mcg tablet 0.4 mg PO DAILY 11/23/23 12/28/24 alprazolam 0.25 mg tablet 0.25 mg PO BID 03/28/24 12/28/24 citalopram 20 mg tablet (Celexa) 20 mg PO DAILY 11/28/24 12/28/24 fluticasone propionate 115 2 puff inhalation BID 01/14/25 mcg-salmeterol 21 mcg/actuation HFA inhaler (Advair HFA) Previous Rx's ?Medication ?Instructions ?Recorded acetaminophen 325 mg capsule 325 mg PO Q4H PRN pain #30 caps 12/17/23 (Tylenol) albuterol sulfate 90 mcg/actuation 2 puff inhalation Q4-6H PRN 09/06/24 aerosol inhaler shortness of breath or wheezing #1 ea mirabegron 25 mg tablet,extended 25 mg PO DAILY 90 days #90 tabs 11/01/24 release 24 hr (Myrbetriq) ondansetron 4 mg disintegrating 4 mg PO Q6H PRN nausea and 11/18/24 tablet vomiting #14 tabs cholecalciferol (vitamin D3) 50 50 mcg PO DAILY #90 tabs 12/09/24 mcg (2,000 unit) tablet (Vitamin D3) pantoprazole 40 mg tablet,delayed 40 mg PO DAILY #90 tabs 12/15/24 release (Protonix) polyethylene glycol 3350 17 gram 17 g PO DAILY 14 days #14 ea 12/28/24 oral powder packet (Miralax) clopidogrel 75 mg tablet 75 mg PO QAM #90 tabs 12/30/24 dicyclomine 20 mg tablet 20 mg PO BID PRN diarrhea #7 tabs 01/03/25 fluticasone propionate 50 1 spray intranasal DAILY 30 days 01/19/25 mcg/actuation nasal #16 grams spray,suspension sucralfate 1 gram tablet 1 g PO BID 7 days #14 tabs 01/19/25 nitrofurantoin 100 mg PO Q12H 5 days #10 caps 02/03/25 monohydrate/macrocrystals 100 mg capsule (Macrobid) Allergies Allergy/AdvReac Type Severity Reaction Status Date / Time buspirone Allergy Intermediate Rash Verified 02/09/25 15:13 Sulfa (Sulfonamide Allergy Intermediate RASH Verified 02/09/25 15:13 Antibiotics) cefuroxime Allergy Unknown Unknown Verified 02/09/25 15:13 garlic [GARLIC] Allergy Unknown PER H&P Verified 02/09/25 15:13 metronidazole [From FLAGYL] Allergy Unknown OCULAR Verified 02/09/25 15:13 MIGRAINES penicillamine Allergy Unknown Unknown Verified 02/09/25 15:13 ciprofloxacin AdvReac Intermediate neuropathic Verified 02/09/25 15:13 pain lisinopril AdvReac Intermediate Cough Verified 02/09/25 15:13 nitrofurantoin AdvReac Mild GI side Verified 02/09/25 15:13 effects cefuroxime Allergy Intermediate wheezy Uncoded 02/09/25 15:13 cough/itch flagyl Allergy Unknown Unknown Uncoded 02/09/25 15:13 From KEFLEX Allergy Unknown RASH Uncoded 02/09/25 15:13 Metoprolol Tartrate Allergy Unknown Unknown Uncoded 02/09/25 15:13 Sulfacet-R Allergy Unknown Unknown Uncoded 02/09/25 15:13 Review of Systems Review of Systems: Yes all other systems are reviewed and are negative Constitutional: Constitutional: Reports fatigue and Denies fever(s) Cardiovascular: Cardiovascular: Reports chest pain and Denies dyspnea Respiratory: Respiratory: Denies dyspnea Gastrointestinal: Gastrointestinal: Denies abdominal pain, Reports melena, Denies nausea and Denies vomiting Endocrine: Endocrine: Reports fatigue PMFSH Past Medical History Attestation statement: The following information was validated with the patient. Medical History Acute diverticulitis LLQ abdominal pain Contusion of right lower leg Otitis media Cough Bronchitis Pelvic pain Chronic cough Elevated IgE level Status post fall Annual wellness visit Hip pain Post-menopausal URI (upper respiratory infection) Sensation of pressure in bladder area Chest pain Elevated blood sugar Oral candidiasis GERD (gastroesophageal reflux disease) Pulmonary nodule HTN (hypertension) Heart palpitations Constipation Breast cancer screening Breast pain, left Elevated vitamin B12 level Neck muscle spasm Strain of neck muscle Low back pain Pubic ramus fracture Sore throat Skin tear of upper arm without complication Head injury, acute, without loss of consciousness Fall Dizziness Medication noncompliance due to cognitive impairment RLQ abdominal pain Sinusitis Flu syndrome Precordial chest pain Atypical chest pain Cold intolerance Former smoker Abnormal lung sounds Fever Bilateral calf pain Nausea Left lower quadrant abdominal pain Dysuria Fatigue Lower extremity weakness Aortic stenosis Obstipation Dark stools Lower abdominal pain Gastroenteritis Neck pain on right side Back pain Rhinitis Elevated BP without diagnosis of hypertension Non-rheumatic aortic stenosis Diverticulitis GERD (gastroesophageal reflux disease) Cat scratch Cat bite Epigastric discomfort Diarrhea Neuropathy Arthritis GERD (gastroesophageal reflux disease) HTN (hypertension) Irritable bowel Heart murmur Surgical History S/P AVR S/P TAVR (transcatheter aortic valve replacement) Hx of esophagogastroduodenoscopy Hx of colonoscopy History of tonsillectomy History of appendectomy Family History Family History Father No problems noted. Mother No problems noted. Social History Social History Household Members: Children Housing: House Are you a primary ambulatory care coordinator to a significant other at home: No Do you presently have visiting nurse or other home services: No Alcohol intake: former Patient Tobacco Use Status: Former Tobacco user Tobacco use type: Cigarette e-Cigarette/Vaping Use: Never Used Second Hand Smoke Exposure: Yes Advance Directives: Yes Advance Directives on File: Yes Advance Directives Date on File: 03/28/23 Do you have a plan to hurt others: No Plan service: No Current occupational status: retired Cognitive needs: No Hearing needs: No Vision needs: Yes (glasses) Physical Exam Vital Signs: Vital Signs: Last Vital Signs Temp 98.4 F 02/09/25 22:04 Pulse 90 02/09/25 22:04 Resp 20 02/09/25 22:04 BP 141/73 H 02/09/25 22:04 Pulse Ox 98 02/09/25 15:12 O2 Del Method Room Air 02/09/25 15:12 BMI result Body Mass Index 26.3 Const: Other: Alert well-appearing Orientation/consciousness: patient oriented x3 Resp: Effort & Inspection: normal respiratory effort Cardio: Other: Normal peripheral perfusion GI: Other: Abdomen is soft, nontender no guarding, stool is dark, not melena, no bright red blood per rectum Skin: Other: Warm dry no rash Neuro: General: patient oriented x3, gait normal, no focal motor deficits and CN's II-XI intact bilaterally Psych: Other: Cooperative Course Course Course Narrative: This is a Rapid Medical Exam performed in triage by Lauren Stout PA-C. Full HPI, ROS and PE to be performed by primary ED provider. 84 yo F w/pmhx GERD, HTN, s/p TAVR, anxiety, CVA/TIA, IBS, COPD, presenting to the ED c/o intermittent chest pain x today. Also reports elevated BP & lightheadedness. Son reports decreased PO intake. PE: NAD, nontoxic appearing, ambulating w/steady gait, talking in complete sentences Plan: EKG, labs, UA, CXR, SARs Medications Administered Discontinued Medications Generic Name Dose Route Start Last Admin Trade Name Freq PRN Reason Stop Dose Admin Alprazolam 0.25 mg 02/09/25 21:35 02/09/25 22:26 Alprazolam 0.25 Mg Tablet PO 02/09/25 21:36 0.25 mg ONCE ONE Administration Pantoprazole Sodium 40 mg 02/09/25 22:12 02/09/25 22:26 Pantoprazole Sodium 40 Mg/10 Ml Vial IVPUSH 02/09/25 22:13 40 mg ONCE ONE Administration Medical Decision Making Medical Decision Making [facility] Narrative: 84-year-old female with a history of cognitive impairment, hypertension, aortic stenosis status post TAVR, COPD, CVA, TIA, vertigo, osteoarthritis, who presents with chest pain that started yesterday. Her discomfort has been intermittent and random, unable to describe the nature of her symptoms. Associated light-headedness. Patient states she has been having dark stools for weeks. Denies abdominal pain, nausea vomiting or fever. Denies shortness of breath or diaphoresis. Problem: Age, GERD, cognitive impairment History: Per patient I have considered the following differential diagnoses: BI bleed upper Plan: Screening labs obtained from triage, the patient is anemic requires transfusion. We will add on a guaiac. Giving Protonix. She is not having abdominal pain, no indication for imaging, she also has no active GI symptoms. She is not spilling melena. I have independently reviewed the following tests: Labs: Pancytopenia noted, worsening anemia, 7 and 22.1, no leukocytosis, no electrolyte abnormality, troponin 6.2 we will obtain a delta 6.4 , guaiac positive EKG: Sinus rhythm first-degree AV block, rate 82, no ischemic changes no ectopy QTC 450 Chest x-ray:FINDINGS: No consolidation. Pulmonary hyperinflation suggestive of COPD. No pleural effusion. No pneumothorax. No cardiomegaly. No acute fracture. IMPRESSION: No acute findings. Lab Data 02/09/25 15:27 02/09/25 15:27 Labs: Lab Results 02/09/25 02/09/25 Range/Units 15:27 19:26 WBC 2.9 L (4.8-10.8) X10*3/uL RBC 2.43 L (4.20-5.50) X10*6/uL Hgb 7.0 L* (12.0-16.0) g/dl Hct 22.1 L (37.0-47.0) % MCV 90.9 (80.0-98.0) fL MCH 28.8 (27.0-33.0) pg MCHC 31.7 (31.0-35.0) g/dl RDW 14.8 (11.0-16.0) % Plt Count 151 L (160-400) X10*3/uL MPV 11.2 (9.4-12.3) fL Immature Gran % (Auto) 0.4 (0.0-0.4) % Neut % (Auto) 68.7 (45-73) % Lymph % (Auto) 18.9 L (20-40) % [place] % (Auto) 7.4 (2-11) % Eos % (Auto) 3.9 (0-4) % Baso % (Auto) 0.7 (0-2) % Lymph # (Auto) 0.5 L (1.2-4.9) X10*3/uL [place] # (Auto) 0.2 (0.1-1.2) X10*3/uL Eos # (Auto) 0.1 (0.0-0.4) X10*3/uL Baso # (Auto) 0.0 (0.0-0.2) X10*3/uL Abs Immat Gran (auto) 0.01 (0.00-0.03) X10*3/uL Absolute Neuts (auto) 2.0 (2.0-8.3) x10*3/uL Absolute Nucleated RBC 0.000 (0.0-0.012) X10*3/uL Nucleated RBC % (auto) 0.0 (0.0-0.2) /100WBC Sodium 142 (135-145) mmol/L Potassium 4.1 (3.3-5.1) mmol/L Chloride 107 (96-108) mmol/L Carbon Dioxide 25 (22-29) mmol/L Anion Gap 14 (12-20) BUN 22 H (9-16) mg/dL Creatinine 0.85 (0.5-1.4) mg/dL Estim Creat Clear Calc 50.7 Estimated GFR > 60 Random Glucose 107 (60-115) mg/dL Calcium 9.6 (8.4-10.2) mg/dL Magnesium 1.9 (1.6-2.6) mg/dL Total Bilirubin 0.5 (0.0-1.0) mg/dL Direct Bilirubin 0.2 (0.0-0.5) mg/dL AST 21 (5-31) U/L ALT 12 (0-31) U/L Alkaline Phosphatase 81 (39-117) U/L Troponin I High Sens 6.2 6.4 (<3.5-17.0) ng/L Total Protein 6.5 (6.5-8.0) g/dL Albumin 4.2 (3.5-5.0) g/dL Stool Occult Blood POSITIVE (NEGATIVE) Influenza Type A (PCR) NEGATIVE (Negative) Influenza Type B (PCR) NEGATIVE (Negative) RSV RNA Qual (PCR) NEGATIVE (Negative) SARS-CoV-2 RNA (RT-PCR) NEGATIVE (Negative) Blood Type O Positive Antibody Screen NEGATIVE Crossmatch See Detail Critical Care Time Critical Care Time Critical Care Time: Yes Total Critical Care Time: 30 Attestation: I Mel Martin PA-C have personally performed critical care time not including lines and procedures; GI bleed, anemia requiring transfusion Discharge Plan Discharge Clinical Impression: GI (gastrointestinal bleed) Patient Disposition: Admitted As Inpatient Print Language: Malawian
[2025-02-09 15:32] LABS: MANUAL DIFF FLAG NO
[2025-02-09 15:33] LABS: Basophils Percent Auto 0.7 % (0-2); Eosinophils Absolute Auto 0.1 X10*3/uL (0.0-0.4); Eosinophils Percent Auto 3.9 % (0-4); Hematocrit 22.1 % (37.0-47.0); Imm Gran Abs Auto 0.01 X10*3/uL (0.00-0.03); Imm Gran Pct Auto 0.4 % (0.0-0.4); Lymphocytes Absolute Auto 0.5 X10*3/uL (1.2-4.9); Lymphocytes Percent Auto 18.9 % (20-40); Mean Corpuscular HGB Conc 31.7 g/dl (31.0-35.0); Mean Corpuscular Hemoglobin 28.8 pg (27.0-33.0); Mean Corpuscular Volume 90.9 fL (80.0-98.0); Mean Platelet Volume 11.2 fL (9.4-12.3); Monocytes Absolute Auto 0.2 X10*3/uL (0.1-1.2); Monocytes Percent Auto 7.4 % (2-11); Neutrophils Percent Auto 68.7 % (45-73); Platelet Count 151 X10*3/uL (160-400); Red Blood Count 2.43 X10*6/uL (4.20-5.50); Red Cell Distribution Width 14.8 % (11.0-16.0); White Blood Count 2.9 X10*3/uL (4.8-10.8)
[2025-02-09 16:00] LABS: Alanine Aminotransferase 12 U/L (0-31); Albumin Level 4.2 g/dL (3.5-5.0); Anion Gap 14 (12-20); Aspartate Amino Transferase 21 U/L (5-31); Bilirubin Direct 0.2 mg/dL (0.0-0.5); Bilirubin Total 0.5 mg/dL (0.0-1.0); Blood Urea Nitrogen 22 mg/dL (9-16); Calcium 9.6 mg/dL (8.4-10.2); Carbon Dioxide 25 mmol/L (22-29); Chloride 107 mmol/L (96-108); Creatinine Clr Calc Pharmacy 50.7; Estimated Glomerular Filt Rate > 60; Glucose Random 107 mg/dL (60-115); Magnesium 1.9 mg/dL (1.6-2.6); Potassium 4.1 mmol/L (3.3-5.1); Sodium 142 mmol/L (135-145); Total Protein 6.5 g/dL (6.5-8.0)
[2025-02-09 16:02] LABS: Troponin-I High Sensitivity 6.2 ng/L (<3.5-17.0)
[2025-02-09 16:12] LABS: Influenza A PCR NEGATIVE (Negative); Influenza B PCR NEGATIVE (Negative); Resp Syncy Virus RNA Qual PCR NEGATIVE (Negative); SARS COV2 PCR INHOUSE NEGATIVE (Negative)
[2025-02-09 16:16] LABS: Alkaline Phosphatase 81 U/L (39-117)
[2025-02-09 19:59] LABS: Troponin-I High Sensitivity 6.4 ng/L (<3.5-17.0)
[2025-02-09 20:38] LABS: OBS Int Ctl Valid YES
[2025-02-09 20:39] LABS: OBS1 POSITIVE (NEGATIVE)
[2025-02-09 21:49] VITALS: BP 160/72; PULSE 89; RESP 14; TEMP 37.2
[2025-02-09 22:04] VITALS: BP 141/73; PULSE 90; RESP 20; TEMP 36.9
[2025-02-09] MEDS: ALPRAZolam 0.25 MG TABLET PO (22:26)
[2025-02-09] MEDS: Pantoprazole Sodium 40 MG/10 ML VIAL IVPUSH (22:26)
--- NOTE | 2025-02-09 22:26 | P.HPHOSP_ITS ---
History of Present Illness Date of Service: 02/09/25 Attending physician on admission: Steven Olivares Chief Complaint: ABD PAIN Pt is an 84 yo female with PMH CVA currently on Plavix, TAVR, Diverticulosis, internal hemorrhoids, small hiatal hernia, anxiety, UTI, HTN, HLD, R wrist fractute, multiple falls in the last 2 months, COPD, GERD presents with complaints of chest pain earlier that pt has been having for at least 2 weeks with generalized fatigue and malaise that has been ongoing for the last 2 months. Pt denies any current chest pain at this time. Patient reports tenderness in the left lower quadrant of her abdomen. Patient's H&H found to be 7/. Patient denies any shortness of breath at rest or with exertion. Pt is not on oxygen now nor at home. Pt is receiving PRBC's for acute anemia due to suspected GIB on ED assessment. Pt did receive protonix IV X1 so far. Pt denies any chronic liver issues. Patient has been reporting dark stool but denies any bright red bleeding with bowel movements. Incidentally patient reports a 35 lb weight loss over the last year. Per pt's son, pt has been falling more often and did incur a wrist fracture in the past that did not require surgery. Pt has been wearing a brace for this. Pt is being admitted for GIB and GI has been consulted. Pt is a regular patient of Dr. Escobar. Pt has had EGD and colonoscopy in the remote past. Pt denies hx of ulcer or GIB. Patient does report history of diverticulitis with history of surgery at [facility]. Patient denies any bowel removal, colectomy and is not sure what procedure she had back then. This procedure occurred approximately [address] of the abdomen and pelvis pending as patient has left lower quadrant abdominal pain on exam. GI has been consulted and patient will be NPO after midnight. Cardiac work up negative for ACS, NSTEMI. BNP pending. Review of Systems 2 Review of Systems: Pt currently denies chest pain, SOB at rest, abdonimal pain at rest. Pt is having abdominal paib LLQ at rest. Pt denies any bright red blood in stool. Pt is also denying any nause or vomiging. 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 Pt has been on Plavix ever since. Yes all other systems are reviewed and are negative [facility] Medical History Acute diverticulitis LLQ abdominal pain Contusion of right lower leg Otitis media Cough Bronchitis Pelvic pain Chronic cough Elevated IgE level Status post fall Annual wellness visit Hip pain Post-menopausal URI (upper respiratory infection) Sensation of pressure in bladder area Chest pain Elevated blood sugar Oral candidiasis GERD (gastroesophageal reflux disease) Pulmonary nodule HTN (hypertension) Heart palpitations Constipation Breast cancer screening Breast pain, left Elevated vitamin B12 level Neck muscle spasm Strain of neck muscle Low back pain Pubic ramus fracture Sore throat Skin tear of upper arm without complication Head injury, acute, without loss of consciousness Fall Dizziness Medication noncompliance due to cognitive impairment RLQ abdominal pain Sinusitis Flu syndrome Precordial chest pain Atypical chest pain Cold intolerance Former smoker Abnormal lung sounds Fever Bilateral calf pain Nausea Left lower quadrant abdominal pain Dysuria Fatigue Lower extremity weakness Aortic stenosis Obstipation Dark stools Lower abdominal pain Gastroenteritis Neck pain on right side Back pain Rhinitis Elevated BP without diagnosis of hypertension Non-rheumatic aortic stenosis Diverticulitis GERD (gastroesophageal reflux disease) Cat scratch Cat bite Epigastric discomfort Diarrhea Neuropathy Arthritis GERD (gastroesophageal reflux disease) HTN (hypertension) Irritable bowel Heart murmur Functional capacity: uses cane/walker (often non compliant with using cane ) Patient : No Family History Father No problems noted. Mother No problems noted. Surgical History S/P AVR S/P TAVR (transcatheter aortic valve replacement) Hx of esophagogastroduodenoscopy Hx of colonoscopy History of tonsillectomy History of appendectomy Social History Household Members: Children Housing: House Are you a primary care management associate to a significant other at home: No Do you presently have visiting nurse or other home services: No Alcohol intake: former Patient Tobacco Use Status: Former Tobacco user Tobacco use type: Cigarette e-Cigarette/Vaping Use: Never Used Second Hand Smoke Exposure: Yes Advance Directives: Yes Advance Directives on File: Yes Advance Directives Date on File: 03/28/23 Do you have a plan to hurt others: No Plan Patient : No service: No Current occupational status: retired Cognitive needs: No Hearing needs: No Vision needs: Yes (glasses) Meds Allergies Allergy/AdvReac Type Severity Reaction Status Date / Time buspirone Allergy Intermediate Rash Verified 02/09/25 15:13 Sulfa (Sulfonamide Allergy Intermediate RASH Verified 02/09/25 15:13 Antibiotics) cefuroxime Allergy Unknown Unknown Verified 02/09/25 15:13 garlic [GARLIC] Allergy Unknown PER H&P Verified 02/09/25 15:13 metronidazole [From FLAGYL] Allergy Unknown OCULAR Verified 02/09/25 15:13 MIGRAINES penicillamine Allergy Unknown Unknown Verified 02/09/25 15:13 ciprofloxacin AdvReac Intermediate neuropathic Verified 02/09/25 15:13 pain lisinopril AdvReac Intermediate Cough Verified 02/09/25 15:13 nitrofurantoin AdvReac Mild GI side Verified 02/09/25 15:13 effects cefuroxime Allergy Intermediate wheezy Uncoded 02/09/25 15:13 cough/itch flagyl Allergy Unknown Unknown Uncoded 02/09/25 15:13 From KEFLEX Allergy Unknown RASH Uncoded 02/09/25 15:13 Metoprolol Tartrate Allergy Unknown Unknown Uncoded 02/09/25 15:13 Sulfacet-R Allergy Unknown Unknown Uncoded 02/09/25 15:13 Active Medications: Current Medications Acetaminophen (Acetaminophen 325 Mg Tablet) 650 mg PO Q6H PRN PRN Reason: Pain, Mild 1-3,fever,headache Albuterol/Ipratropium (Albuterol/Iprat 2.5/0.5mg 3 Ml Ampul.Neb) 3 ml INHALE Q4H PRN PRN Reason: Shortness of Breath/Wheezing Calcium Carbonate (Calcium Carbonate 750 Mg Tab.Chew) 750 mg PO Q4H PRN PRN Reason: Heartburn Magnesium Hydroxide (Milk Of Magnesia 30 Ml Oral.Susp) 30 ml PO DAILY PRN PRN Reason: Constipation Melatonin (Melatonin 3 Mg Tablet) 6 mg PO BEDTIME PRN PRN Reason: Insomnia Ondansetron HCl (Ondansetron Hcl 4 Mg/2 Ml Vial) 4 mg IVPUSH Q8H PRN PRN Reason: Nausea and Vomiting Sodium Chloride (0.9 % Sodium Chloride Flush 3 Ml Syringe) 3 ml IVFLUSH QSHIFT [facility] Home Medications ?Medication ?Instructions ?Recorded ?Confirmed ?Last Taken ?Type folic acid 400 mcg tablet 0.4 mg PO DAILY 11/23/23 12/28/24 Unknown History alprazolam 0.25 mg tablet 0.25 mg PO BID 03/28/24 12/28/24 Unknown History citalopram 20 mg tablet (Celexa) 20 mg PO DAILY 11/28/24 12/28/24 Unknown History fluticasone propionate 115 2 puff inhalation BID 01/14/25 Unknown History mcg-salmeterol 21 mcg/actuation HFA inhaler (Advair HFA) Physical Exam 2 Vital Signs and Narrative: Vital Signs: Last Vital Signs Temp 98.4 F 02/09/25 22:04 Pulse 90 02/09/25 22:04 Resp 20 02/09/25 22:04 BP 141/73 H 02/09/25 22:04 Pulse Ox 98 02/09/25 15:12 O2 Del Method Room Air 02/09/25 15:12 BMI result Body Mass Index 26.3 Alert and orientated X3, patient offers that her memory has been poor since she had a stroke status post TAVR. Able to answer questions when asked. Neuro: CN II-X11 intact, no deficits, visual acuity intact (patient denies any current deficits related to previous stroke) EYES: PERRLA, EOM intact, glasses on, conjunctiva pale ENT: hearing intact, uvula midline, lips moist, nares patent no epistaxis, patient did pass bedside swallow Cardiac: S1 S2 RRR, no murmur, no JVD, no edema in Lower ext Pulmonary: lungs clear to auscultation B Abdominal: BS active in all 4 quadrants, no guarding, moderate tenderness LLQ, no rebounding MSK: strength 4/5 upper and lower extremities, right wrist with full range of motion, patient not currently wearing cast which is located in her purse. : no CVA tenderness no bladder distension Extremities: no edema in lower extremities, PT and DP pulses palpable +2 Psych: mood anxious, judgement and insight fair Skin: Bruising noted along toes of right foot from previous injury. Patient does have full range motion of right foot. Patient has been able to bear weight. Bruising is in the healing stages. Results Labs 02/09/25 15:27 02/09/25 15:27 Labs: Laboratory Results - last 24 hr 02/09/25 02/09/25 15:27 19:26 MCV 90.9 MCH 28.8 MCHC 31.7 RDW 14.8 Plt Count 151 L MPV 11.2 Immature Gran % (Auto) 0.4 Neut % (Auto) 68.7 Lymph % (Auto) 18.9 L [place] % (Auto) 7.4 Eos % (Auto) 3.9 Baso % (Auto) 0.7 Lymph # (Auto) 0.5 L [place] # (Auto) 0.2 Eos # (Auto) 0.1 Baso # (Auto) 0.0 Abs Immat Gran (auto) 0.01 Absolute Neuts (auto) 2.0 Absolute Nucleated RBC 0.000 Nucleated RBC % (auto) 0.0 Anion Gap 14 Estim Creat Clear Calc 50.7 Estimated GFR > 60 Random Glucose 107 Calcium 9.6 Magnesium 1.9 Total Bilirubin 0.5 Direct Bilirubin 0.2 AST 21 ALT 12 Alkaline Phosphatase 81 Troponin I High Sens 6.2 6.4 Total Protein 6.5 Albumin 4.2 Stool Occult Blood POSITIVE Influenza Type A (PCR) NEGATIVE Influenza Type B (PCR) NEGATIVE RSV RNA Qual (PCR) NEGATIVE SARS-CoV-2 RNA (RT-PCR) NEGATIVE Blood Type O Positive Antibody Screen NEGATIVE Crossmatch See Detail ECG Attestation: I personally reviewed and interpreted this ECG as follows: (Pending) Prior ECG tracings: not available for review Imaging Radiologist's Impressions: CXR FINDINGS: No consolidation. Pulmonary hyperinflation suggestive of COPD. No pleural effusion. No pneumothorax. No cardiomegaly. No acute fracture. IMPRESSION: No acute findings. Assessment and Plan (1) GI (gastrointestinal bleed): Qualifiers: GI bleed type/associated pathology: unspecified gastrointestinal hemorrhage type Qualified Code(s): K92.2 - Gastrointestinal hemorrhage, unspecified Status: Acute Plan Pt is an 84 yo female with PMH CVA currently on Plavix, TAVR, Diverticulosis, internal hemorrhoids, small hiatal hernia, UTI, HTN, HLD, R wrist fractute, multiple falls over the last 2 months, COPD, GERD presents with complaint of chest pain. Acute coronary syndrome ruled out. Chest pain currently resolved on admission. Pt is being admitted for GIB. GIB -Pt is being transfused PRBCs. Recheck H/H 2 hours after transfusion is completed -GI has been consulted, patient is known to Dr. Escobar -Protonix 40 IV BID, med rec not completed but sucralfate 1 g b.i.d. has been listed for 14 day. Patient is unsure if she is currently on that medication. -NPO at midnight -Telemetry -NO plavix, No DVT prophylaixs at this time. Patient does not normally take aspirin or NSAIDs. Patient normally on Plavix 75 mg daily for history of stroke s/p TAVR Chest pain -acute coronary syndrome ruled out, troponins negative -chest pain currently resolved as patient is receiving transfusion, likely secondary to acute anemia -continue telemetry HX of Diverticulitits with Diverticulosis and surgery at [facility] in the past -CT ABD with IV contrast ordered -IVF bolus after contrast, renal fx currently stable -Patient believes she had surgery a [facility] proximally 10-15 years ago but is uncertain of the details. S/P TAVR, CVA post procedure/ recent falls with right wrist fracture not requiring surgery/ dysphagia -patient has been on Plavix and missed her follow-up neurology appointment. Patient is supposed to see Neurology this coming Monday. -Plavix held due to GI bleed -Patient's neuro exam reassuring. Patient has been reporting frequent falls. Patient also states her memory has been worse since the stroke. -son reports that patient has been coughing more often with and without drinking or eating. Speech therapy eval ordered. Patient did pass bedside swallow eval. -PT evaluation ordered -R wrist fracture stable on exam, patient did not require surgery. Continue to wear right cast during waking hours Anxiety -son will bring patient's Celexa in from home -Xanax ordered p.r.n. Urinary incontinence -patient received Myrbetriq 1 dose tonight -UA collected 6 5 was negative -patient currently asymptomatic -UA with reflex ordered for follow-up COPD HX current nonsmoker -albuterol nebs p.r.n. for shortness of breath or wheezing -no issues with hypoxia on admission DVT prophylaxis: not ordered due to GIB, SCDs ordered PPI prophylaxis: Protonix 40 IV BID FULL CODE STATUS Med rec is pending Quality Stroke Does the patient have a stroke diagnosis?: No Reason for No Anti-thrombotic by Day Two: Contraindicated (Patient normally on Plavix status post original stroke after TAVR, held due to GI bleed) VTE Prior VTE?: No VTE Risk Level:: Medical - moderate - high VTE Device Contraindication: N/A - Device Ordered VTE Drug Contraindication: Treatment Not Indicated
--- NOTE | 2025-02-09 23:19 | PC.NURSE ---
This fiction and nonfiction writer prose assumed care of this Pt at 2300.
[2025-02-09] MEDS: Mirabegron 25 MG TAB.ER.24H PO (23:47)
[2025-02-09] MEDS: 0.9 % Sodium Chloride Flush 3 ML SYRINGE IVFLUSH (23:48)
[2025-02-10] VITALS (12 sets, daily range): BP systolic 141–178; BP diastolic 75–93; PULSE 72–84; RESP 16–18; TEMP 36.2–37.4; O2SAT 95–98; BMI 27.7
[2025-02-10] MEDS: 0.9 % Sodium Chloride 500 ML IV (00:56)
[2025-02-10] MEDS: iohexoL 350 MG/ML 100 ML INFUS..BTL 85 ML IV (01:00)
--- NOTE | 2025-02-10 01:25 | PC.NURSE ---
1 of 2 units of blood transfused. Report complete, Pt will be transported to room 474. Pt aware of plan.
[2025-02-10] MEDS: Acetaminophen 325 MG TABLET 650 MG PO ×2 (03:39→16:28)
[2025-02-10] MEDS: Pantoprazole Sodium 40 MG/10 ML VIAL IVPUSH ×2 (06:01→16:29)
[2025-02-10 07:36] LABS: MANUAL DIFF FLAG NO
[2025-02-10 07:42] LABS: Basophils Percent Auto 0.6 % (0-2); Eosinophils Absolute Auto 0.2 X10*3/uL (0.0-0.4); Eosinophils Percent Auto 4.3 % (0-4); Hematocrit 26.9 % (37.0-47.0); Hemoglobin 8.7 g/dl (12.0-16.0); Imm Gran Abs Auto 0.01 X10*3/uL (0.00-0.03); Imm Gran Pct Auto 0.3 % (0.0-0.4); Lymphocytes Absolute Auto 0.8 X10*3/uL (1.2-4.9); Lymphocytes Percent Auto 22.5 % (20-40); Mean Corpuscular HGB Conc 32.3 g/dl (31.0-35.0); Mean Corpuscular Hemoglobin 29.6 pg (27.0-33.0); Mean Corpuscular Volume 91.5 fL (80.0-98.0); Mean Platelet Volume 11.4 fL (9.4-12.3); Monocytes Absolute Auto 0.4 X10*3/uL (0.1-1.2); Neutrophils Absolute Auto 2.2 x10*3/uL (2.0-8.3); Neutrophils Percent Auto 62.3 % (45-73); Platelet Count 144 X10*3/uL (160-400); Red Blood Count 2.94 X10*6/uL (4.20-5.50); Red Cell Distribution Width 14.5 % (11.0-16.0); White Blood Count 3.5 X10*3/uL (4.8-10.8)
[2025-02-10 08:00] LABS: Alanine Aminotransferase 9 U/L (0-31); Alkaline Phosphatase 80 U/L (39-117); Anion Gap 11 (12-20); Aspartate Amino Transferase 21 U/L (5-31); Bilirubin Total 0.8 mg/dL (0.0-1.0); Blood Urea Nitrogen 18 mg/dL (9-16); Calcium 9.4 mg/dL (8.4-10.2); Carbon Dioxide 28 mmol/L (22-29); Chloride 106 mmol/L (96-108); Creatinine Clr Calc Pharmacy 47.4; Estimated Glomerular Filt Rate 57; Glucose Random 83 mg/dL (60-115); Iron 50 mcg/dL (30-160); Percent Iron Saturation 17 % (15-50); Potassium 4.5 mmol/L (3.3-5.1); Sodium 140 mmol/L (135-145); Total Iron Binding Capacity 299 mcg/dL (228-428); Total Protein 6.4 g/dL (6.5-8.0); Unsaturated Iron Binding 249 ug/dL
[2025-02-10 08:15] LABS: Ferritin 14 ng/mL (10-250)
[2025-02-10] MEDS: 0.9 % Sodium Chloride Flush 3 ML SYRINGE IVFLUSH ×3 (08:33→20:30)
[2025-02-10 09:07] LABS: Iron 25 mcg/dL (30-160); Percent Iron Saturation 8 % (15-50); Total Iron Binding Capacity 304 mcg/dL (228-428); Unsaturated Iron Binding 279 ug/dL
[2025-02-10 09:21] LABS: Ferritin 13 ng/mL (10-250)
[2025-02-10] MEDS: ALPRAZolam 0.25 MG TABLET PO (09:36)
--- NOTE | 2025-02-10 09:47 | MHC.CM.PN ---
IMM 02/10. Pt lives at home with her son. Pt received services through [facility], and uses a cane. Pts son to transport her home at discharge. HCP on file and verified. PCP: Dr. Finn Po
--- NOTE | 2025-02-10 09:58 | P.PNIM_ITS ---
Subjective Subjective Date of Service: 02/10/25 Interval History: no further bleed, feels better Physical Exam 2 Vital Signs: Vital Signs: Last Vital Signs Temp 98.2 F 02/10/25 07:25 Pulse 84 02/10/25 07:25 Resp 18 02/10/25 07:25 BP 158/85 H 02/10/25 07:25 Pulse Ox 96 02/10/25 07:25 O2 Del Method Room Air 02/10/25 07:25 BMI result Body Mass Index 27.7 General: AO X 3, no acute distress Resp: CTA bilateral, no accessory muscles used CVS: S1,S2,RRR GI: soft, non tender, non distended Neuro: motor grossly intact, alert Psych: appropriate affect, appropriate insight Objective Data Active Medications Acetaminophen (Acetaminophen 325 Mg Tablet) 650 mg PO Q6H PRN PRN Reason: Pain, Mild 1-3,fever,headache Last Admin: 02/10/25 03:39 Dose: 650 mg Documented By: DARRIAN Albuterol/Ipratropium (Albuterol/Iprat 2.5/0.5mg 3 Ml Ampul.Neb) 3 ml INHALE Q4H PRN PRN Reason: Shortness of Breath/Wheezing Alprazolam (Alprazolam 0.25 Mg Tablet) 0.25 mg PO BID PRN PRN Reason: Anxiety Last Admin: 02/10/25 09:36 Dose: 0.25 mg Documented By: NICOLASA Calcium Carbonate (Calcium Carbonate 750 Mg Tab.Chew) 750 mg PO Q4H PRN PRN Reason: Heartburn Magnesium Hydroxide (Milk Of Magnesia 30 Ml Oral.Susp) 30 ml PO DAILY PRN PRN Reason: Constipation Melatonin (Melatonin 3 Mg Tablet) 6 mg PO BEDTIME PRN PRN Reason: Insomnia Ondansetron HCl (Ondansetron Hcl 4 Mg/2 Ml Vial) 4 mg IVPUSH Q8H PRN PRN Reason: Nausea and Vomiting Pantoprazole Sodium (Pantoprazole Sodium 40 Mg/10 Ml Vial) 40 mg IVPUSH BID@0630,1630 [facility] Last Admin: 02/10/25 06:01 Dose: 40 mg Documented By: DARRIAN Sodium Chloride (0.9 % Sodium Chloride Flush 3 Ml Syringe) 3 ml IVFLUSH QSHIFT [facility] Last Admin: 02/10/25 08:33 Dose: 3 ml Documented By: NICOLASA Labs 02/10/25 07:29 02/10/25 07:29 Labs: Laboratory Results - last 24 hr 02/09/25 02/09/25 02/10/25 15:27 19:26 07:29 MCV 90.9 91.5 MCH 28.8 29.6 MCHC 31.7 32.3 RDW 14.8 14.5 Plt Count 151 L 144 L MPV 11.2 11.4 Immature Gran % (Auto) 0.4 0.3 Neut % (Auto) 68.7 62.3 Lymph % (Auto) 18.9 L 22.5 [place] % (Auto) 7.4 10.0 Eos % (Auto) 3.9 4.3 H Baso % (Auto) 0.7 0.6 Lymph # (Auto) 0.5 L 0.8 L [place] # (Auto) 0.2 0.4 Eos # (Auto) 0.1 0.2 Baso # (Auto) 0.0 0.0 Abs Immat Gran (auto) 0.01 0.01 Absolute Neuts (auto) 2.0 2.2 Absolute Nucleated RBC 0.000 0.000 Nucleated RBC % (auto) 0.0 0.0 Anion Gap 14 11 L Estim Creat Clear Calc 50.7 47.4 Estimated GFR > 60 57 Random Glucose 107 83 Calcium 9.6 9.4 Magnesium 1.9 Iron 25 L 50 TIBC 304 299 % Saturation 8 L 17 Unsat Iron Binding 279 249 Ferritin 13 14 Total Bilirubin 0.5 0.8 Direct Bilirubin 0.2 AST 21 21 ALT 12 9 Alkaline Phosphatase 81 80 Troponin I High Sens 6.2 6.4 Total Protein 6.5 6.4 L Albumin 4.2 4.0 Stool Occult Blood POSITIVE Influenza Type A (PCR) NEGATIVE Influenza Type B (PCR) NEGATIVE RSV RNA Qual (PCR) NEGATIVE SARS-CoV-2 RNA (RT-PCR) NEGATIVE Blood Type O Positive Antibody Screen NEGATIVE Crossmatch See Detail Assessment and Plan (1) B12 deficiency: Status: Acute Plan 84F PMH CVA on Plavix, severe aortic stenosis status post TAVR, diverticulosis, mood disorder, hypertension, hyperlipidemia, COPD, GERD presented with generalized fatigue and dark stool Acute on chronic blood loss anemia Suspect upper GI bleed Holding Plavix, transfuse 2 units PRBC and hemoglobin improved appropriate Continue IV PPI Monitor CBC, GI eval htn losartan histoyr of cva plavix on hold mood disorder xanax, celexa dvt prophylaxis - mechanical due to gi bleed full code reason for continued hospitalization:plan for possible scope Quality Stroke Does the patient have a stroke diagnosis?: No Reason for No Anti-thrombotic by Day Two: Contraindicated (Patient normally on Plavix status post original stroke after TAVR, held due to GI bleed) VTE Prior VTE?: No VTE Risk Level:: Medical - moderate - high VTE Device Contraindication: N/A - Device Ordered VTE Drug Contraindication: Treatment Not Indicated
--- NOTE | 2025-02-10 10:01 | PHA.MEDREC ---
Addendum entered by Anthony Castellon RPh 02/10/25 10:24: Med rec was reviewed by [facility]. Original Note: Pharmacy Consult ? Medication Reconciliation Pharmacy has completed the medication reconciliation. Spoke with pt and she was able to confirm her medications. Pt confirmed her Dr stopped the Famotidine in the 2 weeks and pt is now taking Pantoprazole 40mg tabs QD for heartburn. Pt confirmed her Citalopram 20mg tab at bedtime and stated in the last 1-[address] wanted her to start taking 10mg in the morning and 20mg at bedtime but has not started the 10mg dose yet and is only taking 20mg at bedtime at this time. Pt has some concerns about taking her Mybetriq and thinks that might be the reason why she is being seen in our facility.
[2025-02-10 11:10] LABS: Thyroid Stimulating Hormone 1.51 uIU/mL (0.32-4.0)
--- NOTE | 2025-02-10 13:12 | PM.EVENT ---
Event Note Date of Service: 02/10/25 Event Note: GI EGD planned for 02/11 for further evaluation of anemia and heme positive stool. Time Spent With Patient Time: Total time managing care of this patient today ____ minutes.
--- NOTE | 2025-02-10 13:16 | MHC.SHP ---
Pre-Procedural Eval Section A - 24 Hr Update-Section A only Date of Service: 02/10/25 The patient is an INPATIENT: Yes Changes since office visit: No Cold of Flu in the past 2 weeks, No New Medical Problems, No Changes in Medication and No Patient answered all questions The patient has been examined within 24 hours of the surgical procedure. The History & Physical has been completed within 30 days and I have reviewed it.: Yes Section B - Complete if H&P > 30 days Chief Complaint: chest pain Allergies: Allergies Allergy/AdvReac Type Severity Reaction Status Date / Time buspirone Allergy Intermediate Rash Verified 02/09/25 15:13 Sulfa (Sulfonamide Allergy Intermediate RASH Verified 02/09/25 15:13 Antibiotics) cefuroxime Allergy Unknown Unknown Verified 02/09/25 15:13 garlic [GARLIC] Allergy Unknown PER H&P Verified 02/09/25 15:13 metronidazole [From FLAGYL] Allergy Unknown OCULAR Verified 02/09/25 15:13 MIGRAINES penicillamine Allergy Unknown Unknown Verified 02/09/25 15:13 ciprofloxacin AdvReac Intermediate neuropathic Verified 02/09/25 15:13 pain lisinopril AdvReac Intermediate Cough Verified 02/09/25 15:13 nitrofurantoin AdvReac Mild GI side Verified 02/09/25 15:13 effects cefuroxime Allergy Intermediate wheezy Uncoded 02/09/25 15:13 cough/itch flagyl Allergy Unknown Unknown Uncoded 02/09/25 15:13 From KEFLEX Allergy Unknown RASH Uncoded 02/09/25 15:13 Metoprolol Tartrate Allergy Unknown Unknown Uncoded 02/09/25 15:13 Sulfacet-R Allergy Unknown Unknown Uncoded 02/09/25 15:13 Plan I have reviewed the history and physical and performed a pertinent physical examination on my patient. No changes have occurred unless specified. Time Spent With Patient Time: Total time managing care of this patient today ____ minutes.
--- NOTE | 2025-02-10 13:31 | CONS_ITS ---
DATE OF SERVICE: 02/10/2025 REFERRING PHYSICIAN: Dr. Ignacio REASON FOR CONSULTATION: Anemia and Hemoccult-positive stools. HISTORY OF PRESENT ILLNESS: The patient is a pleasant 84-year-old woman who was admitted to the hospital after presenting to the emergency room yesterday with complaints of chest pain. During her evaluation, she reported dark stools and rectal examination in the emergency department showed Hemoccult-positive stools. She was also noted to be anemic on admission with a hematocrit of 22.1, down from 26.3 in January. She was given blood transfusion with 2 units of packed red blood cells with increase in her hematocrit this morning to 26.9. There have been no reports of bleeding. She has a history of gastroesophageal reflux disease and has been maintained on proton pump inhibitor therapy as an outpatient with pantoprazole. She denies use of NSAIDs and does not drink alcohol to excess or smoke. She last underwent evaluation endoscopically in January 2023, when she had upper endoscopy and colonoscopy. Findings include a small hiatal hernia, diverticulosis, and internal hemorrhoids. We reviewed this today. PAST MEDICAL HISTORY: 1. Gastroesophageal reflux disease. 2. Irritable bowel syndrome. 3. Colon polyps. 4. Diverticulitis. 5. CVA. 6. Valvular heart disease, status post TAVR. 7. Elevated blood sugar. 8. Hypertension. CURRENT MEDICATIONS: Her current medication list is reviewed in the chart. ALLERGIES: THERE ARE MULTIPLE MEDICATION ALLERGIES LISTED. THESE ARE REVIEWED. FAMILY HISTORY: This is reviewed with the patient and is positive for colon polyps in her father. SOCIAL HISTORY: There is no current tobacco, alcohol, or substance abuse. REVIEW OF SYSTEMS: SKIN: No pruritus. HEENT: Negative. CARDIOPULMONARY: She denies shortness of breath or chest pain currently. GASTROINTESTINAL: As above. GENITOURINARY: Negative. NEUROPSYCHIATRIC: Negative. PHYSICAL EXAMINATION: GENERAL: Shows a pleasant female, lying comfortably in bed. VITAL SIGNS: Reviewed in the electronic medical record and are stable. SKIN: Anicteric. HEENT: Shows no scleral icterus. NECK: Without lymphadenopathy or thyromegaly. LUNGS: Clear. HEART: Shows regular rate and rhythm. S1, S2. No murmur. ABDOMEN: Soft without focal masses or tenderness. Bowel sounds are present. No organomegaly is noted. EXTREMITIES: Without edema. LABORATORY DATA AND IMAGING STUDIES: Reviewed in detail. IMPRESSION: Anemia with Hemoccult-positive stools. Because of her need to resume anticoagulation with Plavix, I have recommended she undergo upper endoscopy for further evaluation of her anemia and Hemoccult-positive stools as well as some epigastric pain that she complained about earlier today. I have discussed risks and benefits of the procedure with her. She understands these and agrees to proceed. This will be scheduled at her convenience for tomorrow as an inpatient. Thanks for asking me to see her. I will follow her in the hospital with you. MD JENNIFER Sanchez/JUAN / [phone]
--- NOTE | 2025-02-10 16:44 | MHC.SLORD ---
Speech Language Pathology Order Status: Pt had GI consultation 02/10, on clear liquid diet. PICTURE ENGRAVER to assess post GI evaluation.
[2025-02-10] MEDS: Escitalopram Oxalate 10 MG TABLET PO (20:29)
[2025-02-11] VITALS (11 sets, daily range): BP systolic 123–190; BP diastolic 67–92; PULSE 71–84; RESP 12–18; TEMP 36.1–36.9; O2SAT 94–99
[2025-02-11] MEDS: Melatonin 3 MG TABLET 6 MG PO (00:12)
[2025-02-11] MEDS: Acetaminophen 325 MG TABLET 650 MG PO ×2 (00:12→15:32)
[2025-02-11] MEDS: Pantoprazole Sodium 40 MG/10 ML VIAL IVPUSH ×2 (05:42→15:37)
[2025-02-11 06:36] LABS: Hemoglobin 8.7 g/dl (12.0-16.0); Mean Corpuscular HGB Conc 32.2 g/dl (31.0-35.0); Mean Corpuscular Hemoglobin 29.1 pg (27.0-33.0); Mean Corpuscular Volume 90.3 fL (80.0-98.0); Mean Platelet Volume 11.3 fL (9.4-12.3); Platelet Count 137 X10*3/uL (160-400); Red Blood Count 2.99 X10*6/uL (4.20-5.50); Red Cell Distribution Width 14.7 % (11.0-16.0)
[2025-02-11 06:37] LABS: White Blood Count 2.5 X10*3/uL (4.8-10.8)
[2025-02-11 06:56] LABS: Anion Gap 12 (12-20); Blood Urea Nitrogen 13 mg/dL (9-16); Calcium 9.6 mg/dL (8.4-10.2); Carbon Dioxide 27 mmol/L (22-29); Chloride 106 mmol/L (96-108); Creatinine Clr Calc Pharmacy 56.5; Estimated Glomerular Filt Rate > 60; Glucose Random 78 mg/dL (60-115); Potassium 3.6 mmol/L (3.3-5.1); Sodium 141 mmol/L (135-145)
[2025-02-11 07:30] LABS: Folate 14.3 ng/mL (> or = 4.0); Vitamin B12 399 pg/mL (200-900)
--- NOTE | 2025-02-11 08:40 | MHC.SLORD ---
Speech Language Pathology Order Status: Pt NPO for procedure. To be seen for DOULA clinical swallow evaluation following procedure and clearance to resume PO.
[2025-02-11] MEDS: Escitalopram Oxalate 5 MG TABLET PO (09:08)
[2025-02-11] MEDS: Losartan Potassium 25 MG TABLET PO (09:08)
[2025-02-11] MEDS: Mirabegron 25 MG TAB.ER.24H PO (09:08)
[2025-02-11] MEDS: ALPRAZolam 0.25 MG TABLET PO ×2 (09:08→20:55)
[2025-02-11] MEDS: Cholecalciferol (Vitamin D3) 25 MCG TABLET 50 MCG PO (09:08)
[2025-02-11] MEDS: 0.9 % Sodium Chloride Flush 3 ML SYRINGE IVFLUSH ×3 (09:11→20:55)
[2025-02-11] MEDS: Fluticasone/Vilanterol 100/25 BLST.W.DEV 1 PUFF INHALE (11:33)
--- NOTE | 2025-02-11 12:52 | HO.PM.IMPN ---
Subjective Subjective Date of Service: 02/11/25 Interval History: no further bleed, feels better Physical Exam Vital Signs: Vital Signs: Last Vital Signs Temp 97.6 F 02/11/25 11:06 Pulse 78 02/11/25 11:34 Resp 16 02/11/25 11:34 BP 156/90 H 02/11/25 11:06 Pulse Ox 95 02/11/25 11:06 O2 Del Method Room Air 02/11/25 11:06 BMI result Body Mass Index 27.7 General: AO X 3, no acute distress Resp: CTA bilateral, no accessory muscles used CVS: S1,S2,RRR GI: soft, non tender, non distended Neuro: motor grossly intact, alert Psych: appropriate affect, appropriate insight Objective Data Active Medications Acetaminophen (Acetaminophen 325 Mg Tablet) 650 mg PO Q6H PRN PRN Reason: Pain, Mild 1-3,fever,headache Last Admin: 02/11/25 00:12 Dose: 650 mg Documented By: DARRIAN Albuterol/Ipratropium (Albuterol/Iprat 2.5/0.5mg 3 Ml Ampul.Neb) 3 ml INHALE Q4H PRN PRN Reason: Shortness of Breath/Wheezing Alprazolam (Alprazolam 0.25 Mg Tablet) 0.25 mg PO DAILY [facility] Last Admin: 02/11/25 09:08 Dose: 0.25 mg Documented By: NICOLASA Calcium Carbonate (Calcium Carbonate 750 Mg Tab.Chew) 750 mg PO Q4H PRN PRN Reason: Heartburn Escitalopram Oxalate (Escitalopram Oxalate 10 Mg Tablet) 10 mg PO BEDTIME [facility] Last Admin: 02/10/25 20:29 Dose: 10 mg Documented By: DARRIAN Escitalopram Oxalate (Escitalopram Oxalate 5 Mg Tablet) 5 mg PO DAILY [facility] Last Admin: 02/11/25 09:08 Dose: 5 mg Documented By: NICOLASA Fluticasone/Vilanterol (Fluticasone/Vilanterol 100/25 Blst.W.Dev) 1 puff INHALE RDAILY [facility] Last Admin: 02/11/25 11:33 Dose: 1 puff Documented By: NAOMIE Losartan Potassium (Losartan Potassium 25 Mg Tablet) 25 mg PO DAILY [facility]; Protocol Last Admin: 02/11/25 09:08 Dose: 25 mg Documented By: NICOLASA Magnesium Hydroxide (Milk Of Magnesia 30 Ml Oral.Susp) 30 ml PO DAILY PRN PRN Reason: Constipation Melatonin (Melatonin 3 Mg Tablet) 6 mg PO BEDTIME PRN PRN Reason: Insomnia Last Admin: 02/11/25 00:12 Dose: 6 mg Documented By: DARRIAN Mirabegron (Mirabegron 25 Mg Tab.Er.24h) 25 mg PO DAILY [facility] Last Admin: 02/11/25 09:08 Dose: 25 mg Documented By: NICOLASA Ondansetron HCl (Ondansetron Hcl 4 Mg/2 Ml Vial) 4 mg IVPUSH Q8H PRN PRN Reason: Nausea and Vomiting Pantoprazole Sodium (Pantoprazole Sodium 40 Mg/10 Ml Vial) 40 mg IVPUSH BID@0630,1630 [facility] Last Admin: 02/11/25 05:42 Dose: 40 mg Documented By: DARRIAN Sodium Chloride (0.9 % Sodium Chloride Flush 3 Ml Syringe) 3 ml IVFLUSH QSHIFT [facility] Last Admin: 02/11/25 09:11 Dose: 3 ml Documented By: NICOLASA Vitamin D (Cholecalciferol (Vitamin D3) 25 Mcg Tablet) 50 mcg PO DAILY [facility] Last Admin: 02/11/25 09:08 Dose: 50 mcg Documented By: NICOLASA Labs 02/11/25 06:07 02/11/25 06:07 Labs: Laboratory Results - last 24 hr 02/11/25 06:07 MCV 90.3 MCH 29.1 MCHC 32.2 RDW 14.7 Plt Count 137 L MPV 11.3 Absolute Nucleated RBC 0.000 Nucleated RBC % (auto) 0.0 Smear Path Review SEE NOTE Anion Gap 12 Estim Creat Clear Calc 56.5 Estimated GFR > 60 Random Glucose 78 Calcium 9.6 Vitamin B12 399 Folate 14.3 Assessment and Plan (1) B12 deficiency: Status: Acute Plan 84F PMH CVA on Plavix, severe aortic stenosis status post TAVR, diverticulosis, mood disorder, hypertension, hyperlipidemia, COPD, GERD presented with generalized fatigue and dark stool Acute on chronic blood loss anemia Suspect upper GI bleed Holding Plavix, transfused 2 units PRBC and hemoglobin improved appropriate Continue IV PPI Monitor CBC, EGD today 02/10/25 htn losartan histoyr of cva plavix on hold mood disorder xanax, celexa dvt prophylaxis - mechanical due to gi bleed full code reason for continued hospitalization: scope Quality Stroke Does the patient have a stroke diagnosis?: No Reason for No Anti-thrombotic by Day Two: Contraindicated (Patient normally on Plavix status post original stroke after TAVR, held due to GI bleed) VTE Prior VTE?: No VTE Risk Level:: Medical - moderate - high VTE Device Contraindication: N/A - Device Ordered VTE Drug Contraindication: Treatment Not Indicated
--- NOTE | 2025-02-11 13:51 | MHC.SHP ---
Pre-Procedural Eval Section A - 24 Hr Update-Section A only Date of Service: 02/11/25 The patient is an INPATIENT: Yes Changes since office visit: No Cold of Flu in the past 2 weeks, No New Medical Problems, No Changes in Medication and No Patient answered all questions The patient has been examined within 24 hours of the surgical procedure. The History & Physical has been completed within 30 days and I have reviewed it.: Yes Section B - Complete if H&P > 30 days Chief Complaint: chest pain Allergies: Allergies Allergy/AdvReac Type Severity Reaction Status Date / Time buspirone Allergy Intermediate Rash Verified 02/11/25 13:12 Sulfa (Sulfonamide Allergy Intermediate RASH Verified 02/11/25 13:12 Antibiotics) cefuroxime Allergy Unknown Unknown Verified 02/11/25 13:12 garlic [GARLIC] Allergy Unknown PER H&P Verified 02/11/25 13:12 metronidazole [From FLAGYL] Allergy Unknown OCULAR Verified 02/11/25 13:12 MIGRAINES penicillamine Allergy Unknown Unknown Verified 02/11/25 13:12 ciprofloxacin AdvReac Intermediate neuropathic Verified 02/11/25 13:12 pain lisinopril AdvReac Intermediate Cough Verified 02/11/25 13:12 nitrofurantoin AdvReac Mild GI side Verified 02/11/25 13:12 effects cefuroxime Allergy Intermediate wheezy Uncoded 02/11/25 13:12 cough/itch flagyl Allergy Unknown Unknown Uncoded 02/11/25 13:12 From KEFLEX Allergy Unknown RASH Uncoded 02/11/25 13:12 Metoprolol Tartrate Allergy Unknown Unknown Uncoded 02/11/25 13:12 Sulfacet-R Allergy Unknown Unknown Uncoded 02/11/25 13:12 Plan I have reviewed the history and physical and performed a pertinent physical examination on my patient. No changes have occurred unless specified. Time Spent With Patient Time: Total time managing care of this patient today ____ minutes.
--- NOTE | 2025-02-11 13:52 | PC.NURSE ---
Patient in preop from floor. Full code status order active in computer. Upon discussing this with patient in preop, she vocalized she is a DNR. Dr. Ignacio made aware via tiger and full code order changed to DNR code status. Floor nurse Nicci Spear made aware of change via tiger. Patients current HCP scanned in is her son Hi Henley. Also, incorrect scanned document found in patients chart. Scanned MOLST with wrong patient name/. [facility] aware of this by this nurse and are actively working to remove scanned document. Dr. Ignacio and Nicci made aware.
--- NOTE | 2025-02-11 14:14 | PM.EVENT ---
Event Note Date of Service: 02/11/25 Event Note: EGD dictated normal exam bx's taken antrum and duodenum advance diet ok to restart plavix Time Spent With Patient Time: Total time managing care of this patient today ____ minutes.
--- NOTE | 2025-02-11 15:05 | MHC.CM.PN ---
Pt.'s son / HCP requested to speak to CM re: DCP for pt. Son lives with and takes care of pt., she has memory impairment. Both he and the [facility] staff said that pt. has been increasingly weak and had multiple falls at home and think she would benefit from STR. PT prietoal said home with services. Based on son and [facility] info, CM referred for STR. Pt. first choice [facility], and they have offered a bed. Plan is for her to DC to [facility] for STR on 02/12/25.
[2025-02-11] MEDS: Escitalopram Oxalate 10 MG TABLET PO (20:55)
--- NOTE | 2025-02-11 23:00 | OP_ITS ---
DATE OF SERVICE: 02/11/2025 SURGEON: Alexandru Luna MD INDICATIONS: Anemia and Hemoccult-positive stools. PREOPERATIVE DIAGNOSIS: POSTOPERATIVE DIAGNOSIS: PROCEDURE PERFORMED: Upper endoscopy with biopsy. ESTIMATED BLOOD LOSS: COMPLICATIONS: ANESTHESIA: Monitored anesthesia care. ASSISTANTS: SPECIMENS: DESCRIPTION OF PROCEDURE: A history and physical was performed. The risks and benefits of the procedure were explained to the patient. Informed consent was obtained. The patient was placed in the left lateral decubitus position. The Olympus video gastroscope was introduced into the esophagus, stomach, and duodenum. Examination was performed, and the scope was removed. She tolerated the procedure well and was returned to the recovery area in stable condition. FINDINGS: Esophagus: The esophagus was normal. There was no esophagitis. Stomach: The stomach showed no evidence of masses, ulcers, or polyps. There was no bleeding. Antral biopsies were obtained. Duodenum: The bulb and 2nd portion were normal. Biopsies were obtained from the 2nd portion. IMPRESSION: Normal upper endoscopy. RECOMMENDATION: 1. Follow up the biopsy results. 2. Plavix may be restarted. MD JENNIFER Sanchez/JUAN / [id number]
[2025-02-12] MEDS: Calcium Carbonate 750 MG TAB.CHEW PO (00:26)
[2025-02-12 04:00] VITALS: BP 176/87; PULSE 94; RESP 16; TEMP 37.1; O2SAT 92
[2025-02-12] MEDS: Pantoprazole Sodium 40 MG/10 ML VIAL IVPUSH (06:28)
[2025-02-12 06:49] VITALS: BP 147/64; PULSE 90; RESP 18; TEMP 36.8; O2SAT 94
[2025-02-12] MEDS: Fluticasone/Vilanterol 100/25 BLST.W.DEV 1 PUFF INHALE (07:34)
[2025-02-12 07:37] VITALS: PULSE 90; RESP 18; O2SAT 95
[2025-02-12 07:45] LABS: Anion Gap 10 (12-20); Blood Urea Nitrogen 14 mg/dL (9-16); Calcium 9.8 mg/dL (8.4-10.2); Carbon Dioxide 29 mmol/L (22-29); Chloride 104 mmol/L (96-108); Estimated Glomerular Filt Rate 60; Glucose Random 106 mg/dL (60-115); Potassium 3.8 mmol/L (3.3-5.1); Sodium 139 mmol/L (135-145)
[2025-02-12 08:03] LABS: Hematocrit 29.1 % (37.0-47.0); Hemoglobin 9.4 g/dl (12.0-16.0); Mean Corpuscular HGB Conc 32.3 g/dl (31.0-35.0); Mean Corpuscular Hemoglobin 29.1 pg (27.0-33.0); Mean Corpuscular Volume 90.1 fL (80.0-98.0); Mean Platelet Volume 11.8 fL (9.4-12.3); Platelet Count 143 X10*3/uL (160-400); Red Blood Count 3.23 X10*6/uL (4.20-5.50); Red Cell Distribution Width 14.5 % (11.0-16.0); White Blood Count 8.5 X10*3/uL (4.8-10.8)
[2025-02-12] MEDS: Cholecalciferol (Vitamin D3) 25 MCG TABLET 50 MCG PO (08:41)
[2025-02-12] MEDS: ALPRAZolam 0.25 MG TABLET PO (08:41)
[2025-02-12] MEDS: 0.9 % Sodium Chloride Flush 3 ML SYRINGE IVFLUSH (08:41)
[2025-02-12] MEDS: Escitalopram Oxalate 5 MG TABLET PO (08:41)
[2025-02-12] MEDS: Mirabegron 25 MG TAB.ER.24H PO (08:41)
[2025-02-12] MEDS: Losartan Potassium 25 MG TABLET PO (08:42)
--- NOTE | 2025-02-12 08:57 | P.CDIM_ITS ---
PROVIDER RESPONSE TEXT: To clarify, the appropriate diagnosis supported by the clinical indicators: Pancytopenia: chronic QUERY TEXT: PHYSICIAN'S DOCUMENTATION REQUEST Date of Query: 02/12/2025 08:44 AM EDT Patient Name: Bella Henley Admit Date: 02/10/2025 Dear Balwinder Ignacio MD, A review of the medical record indicates additional documentation may be needed. Please review below and update the documentation accordingly. Clinical Indicators: LABS: WBC 2.5 RBC 2.99 PLT 137 Ed - Pancytopenia noted, worsening anemia, 7 and 22.1. Requiring 2 units PRBC transfused. Fatigued, lightheaded, GI bleed, chest pain. Based on the above, do you agree with the ED's diagnosis of pancytopenia for this patient and if so p ossible to place this diagnosis into the written Plan: Pancytopenia possible, probable, suspected, cannot rule out etc. Other specified Other (explain) Clinically unable to determine (explain) Thank you, Annette Bryant, CCS, CDIS Use of terms such as suspected, likely, concern for, or probable (associated with a specific diagnosi s that is being evaluated, monitored, or treated as if it exists) are acceptable and can be coded in the inpatient se tting, when documented at the time of discharge. Please use your independent medical judgment in providing your response. THIS QUERY IS PART OF THE PERMANENT MEDICAL RECORD
--- NOTE | 2025-02-12 09:23 | HO.POSTANES ---
Post Anesthesia Evaluation Post Anesthesia Evaluation Date of Service: 02/12/25 Vital Signs: Vital Signs Temp Pulse Resp BP Pulse Ox O2 Del Method 02/12/25 07:37 90 18 02/12/25 06:49 98.3 F 90 18 147/64 H 94 Room Air 02/12/25 04:00 98.7 F 94 16 176/87 H 92 Room Air 02/11/25 23:43 97.3 F 82 16 190/92 H 96 Room Air Anesthesia: TIVA Mental Status: Awake Pain Control: Satisfactory Nausea/Vomiting: None Hydration: Adequate Anesthesia-Related Issues: No Anes. Related Issues
--- NOTE | 2025-02-12 09:47 | P.PNIM_ITS ---
Subjective Subjective Date of Service: 02/12/25 Interval History: episode of confusion, left shoulder/back pain Physical Exam 2 Vital Signs: Vital Signs: Last Vital Signs Temp 98.3 F 02/12/25 06:49 Pulse 90 02/12/25 07:37 Resp 18 02/12/25 07:37 BP 147/64 H 02/12/25 06:49 Pulse Ox 94 02/12/25 06:49 O2 Del Method Room Air 02/12/25 06:49 BMI result Body Mass Index 27.7 General: AO X 3, no acute distress Resp: CTA bilateral, no accessory muscles used CVS: S1,S2,RRR GI: soft, non tender, non distended Neuro: motor grossly intact, alert Psych: appropriate affect, appropriate insight reproducible tenderness over left upper back Objective Data Active Medications Acetaminophen (Acetaminophen 325 Mg Tablet) 650 mg PO Q6H PRN PRN Reason: Pain, Mild 1-3,fever,headache Last Admin: 02/11/25 15:32 Dose: 650 mg Documented By: NICOLASA Albuterol/Ipratropium (Albuterol/Iprat 2.5/0.5mg 3 Ml Ampul.Neb) 3 ml INHALE Q4H PRN PRN Reason: Shortness of Breath/Wheezing Alprazolam (Alprazolam 0.25 Mg Tablet) 0.25 mg PO DAILY COUNT [facility] Last Admin: 02/12/25 08:41 Dose: 0.25 mg Documented By: DARWIN Calcium Carbonate (Calcium Carbonate 750 Mg Tab.Chew) 750 mg PO Q4H PRN PRN Reason: Heartburn Last Admin: 02/12/25 00:26 Dose: 750 mg Documented By: ALINA Escitalopram Oxalate (Escitalopram Oxalate 10 Mg Tablet) 10 mg PO BEDTIME COUNT [facility]CLUD[facility] Last Admin: 02/11/25 20:55 Dose: 10 mg Documented By: ALINA Escitalopram Oxalate (Escitalopram Oxalate 5 Mg Tablet) 5 mg PO DAILY COUNT [facility] Last Admin: 02/12/25 08:41 Dose: 5 mg Documented By: DARWIN Fluticasone/Vilanterol (Fluticasone/Vilanterol 100/25 Blst.W.Dev) 1 puff INHALE RDAILY COUNT [facility] Last Admin: 02/12/25 07:34 Dose: 1 puff Documented By: АННА Losartan Potassium (Losartan Potassium 25 Mg Tablet) 25 mg PO DAILY [facility]; Protocol Last Admin: 02/12/25 08:42 Dose: 25 mg Documented By: DARWIN Magnesium Hydroxide (Milk Of Magnesia 30 Ml Oral.Susp) 30 ml PO DAILY PRN PRN Reason: Constipation Melatonin (Melatonin 3 Mg Tablet) 6 mg PO BEDTIME PRN PRN Reason: Insomnia Last Admin: 02/11/25 00:12 Dose: 6 mg Documented By: DARRIAN Mirabegron (Mirabegron 25 Mg Tab.Er.24h) 25 mg PO DAILY [facility] Last Admin: 02/12/25 08:41 Dose: 25 mg Documented By: DARWIN Ondansetron HCl (Ondansetron Hcl 4 Mg/2 Ml Vial) 4 mg IVPUSH Q8H PRN PRN Reason: Nausea and Vomiting Pantoprazole Sodium (Pantoprazole Sodium 40 Mg/10 Ml Vial) 40 mg IVPUSH BID@0630,1630 COUNT [facility]CLUDES [facility] Last Admin: 02/12/25 06:28 Dose: 40 mg Documented By: ALINA Sodium Chloride (0.9 % Sodium Chloride Flush 3 Ml Syringe) 3 ml IVFLUSH QSHIFT COUNT [facility]CLUD[facility] Last Admin: 02/12/25 08:41 Dose: 3 ml Documented By: DARWIN Vitamin D (Cholecalciferol (Vitamin D3) 25 Mcg Tablet) 50 mcg PO DAILY [facility] Last Admin: 02/12/25 08:41 Dose: 50 mcg Documented By: DARWIN Labs 02/12/25 06:43 02/12/25 06:43 Labs: Laboratory Results - last 24 hr 02/11/25 02/12/25 06:07 06:43 MCV 90.1 MCH 29.1 MCHC 32.3 RDW 14.5 Plt Count 143 L MPV 11.8 Absolute Nucleated RBC 0.000 Nucleated RBC % (auto) 0.0 Smear Path Review SEE NOTE Anion Gap 10 L Estim Creat Clear Calc 49.0 Estimated GFR 60 Random Glucose 106 Calcium 9.8 Assessment and Plan (1) B12 deficiency: Status: Acute Plan 84F PMH CVA on Plavix, severe aortic stenosis status post TAVR, diverticulosis, mood disorder, hypertension, hyperlipidemia, COPD, GERD presented with generalized fatigue and dark stool Acute on chronic blood loss anemia Suspect upper GI bleed intitially held Plavix, transfused 2 units PRBC and hemoglobin improved appropriately EGD 02/11/25 - essentially normal, plan to restart plavix, monitor, may need capsule if recurs htn losartan histoyr of cva plavix mood disorder xanax, celexa dvt prophylaxis - mechanical due to gi bleed full code reason for continued hospitalization: dispo planning Quality Stroke Does the patient have a stroke diagnosis?: No Reason for No Anti-thrombotic by Day Two: Contraindicated (Patient normally on Plavix status post original stroke after TAVR, held due to GI bleed) VTE Prior VTE?: No VTE Risk Level:: Medical - moderate - high VTE Device Contraindication: N/A - Device Ordered VTE Drug Contraindication: Treatment Not Indicated
--- NOTE | 2025-02-12 09:57 | P.DS_ITS ---
DS: Providers Provider Date of Service: 02/12/25 Date of admission: 02/09/25 22:50 Date of discharge: 02/12/25 Primary care physician: Huma Garcia MD Consults: 02/09/25 22:22 Consult to Gastroenterology Routine Consulting Provider: Anatoliy Escobar Reason for consultation: GIB Has provider been notified: No DS: Diagnosis Discharge Diagnosis (1) B12 deficiency: Status: Acute DS: Summary Hospital Course Hospital Course: from initial hpi: 84 yo female with PMH CVA currently on Plavix, TAVR, Diverticulosis, internal hemorrhoids, small hiatal hernia, anxiety, UTI, HTN, HLD, R wrist fractute, multiple falls in the last 2 months, COPD, GERD presents with complaints of chest pain earlier that pt has been having for at least 2 weeks with generalized fatigue and malaise that has been ongoing for the last 2 months. Pt denies any current chest pain at this time. Patient reports tenderness in the left lower quadrant of her abdomen. Patient's H&H found to be 7/21. Patient denies any shortness of breath at rest or with exertion. Pt is not on oxygen now nor at home. Pt is receiving PRBC's for acute anemia due to suspected GIB on ED assessment. Pt did receive protonix IV X1 so far. Pt denies any chronic liver issues. Patient has been reporting dark stool but denies any bright red bleeding with bowel movements. Incidentally patient reports a 35 lb weight loss over the last year. Per pt's son, pt has been falling more often and did incur a wrist fracture in the past that did not require surgery. Pt has been wearing a brace for this. hospital course: Patient was admitted for acute on chronic blood loss anemia due to suspected upper GI bleed. Was treated with IV Protonix, her Plavix was held, was transfused 2 units of packed red blood cells and hemoglobin improved appropriately it is between 9 and 10 on discharge. Underwent EGD on 02/11/2025 which was essentially normal, biopsies were taken and should be followed up. Recommendations were to rechallenge with Plavix and monitor may need capsule endoscopy if bleeding recurs. She should follow up with Gastroenterology as outpatient. For hypertension was continued on losartan. For history of CVA we will continue on Plavix. For mood disorder we will continue on Xanax and Celexa. Due to deconditioning we will be discharged to halfway facility for short-term rehab she is expected to require less than 30 days. Time Attestation Discharge Coordination Time (in mins): 33 Quality: Safe Use of Opioids Does Pt have an Active Cancer Diagnosis on the Problem List?: No Quality: Stroke Does the patient have a stroke diagnosis?: No Physical Exam Vital Signs: Vital Signs: Last Vital Signs Temp 98.3 F 02/12/25 06:49 Pulse 90 02/12/25 07:37 Resp 18 02/12/25 07:37 BP 147/64 H 02/12/25 06:49 Pulse Ox 94 02/12/25 06:49 O2 Del Method Room Air 02/12/25 06:49 BMI result Body Mass Index 27.7 General: AO X 3, no acute distress Resp: CTA bilateral, no accessory muscles used CVS: S1,S2,RRR GI: soft, non tender, non distended Neuro: motor grossly intact, alert Psych: appropriate affect, appropriate insight reproducible tenderness over left upper back DS: Data Data Completed and Pending Pending studies at discharge: Pending at discharge 02/11/25 14:15 Surgical [PTH] Routine Labs on day of discharge: Laboratory Results - last 24 hr 02/11/25 02/12/25 06:07 06:43 WBC 8.5 RBC 3.23 L Hgb 9.4 L Hct 29.1 L MCV 90.1 MCH 29.1 MCHC 32.3 RDW 14.5 Plt Count 143 L MPV 11.8 Absolute Nucleated RBC 0.000 Nucleated RBC % (auto) 0.0 Smear Path Review SEE NOTE Sodium 139 Potassium 3.8 Chloride 104 Carbon Dioxide 29 Anion Gap 10 L BUN 14 Creatinine 0.90 Estim Creat Clear Calc 49.0 Estimated GFR 60 Random Glucose 106 Calcium 9.8 Discharge Plan Discharge Anticipated Discharge Date/Time: 02/12/25 09:54 Patient Disposition: Xfer SNF Discharge Diagnosis: gi bleed Referrals: Jenny DRAKE [Outside] - 1 Week Po,Huma Leyva MD [Primary Care Provider] - 1 Week Anatoliy Escobar MD [Physician] - 1 Week Discharge Medications: Continued albuterol sulfate 90 mcg/actuation HFA aerosol inhaler 2 puff inhalation Q4-6H PRN (Reason: shortness of breath or wheezing) Qty: 1 2RF cholecalciferol (vitamin D3) [Vitamin D3] 50 mcg (2,000 unit) tablet 50 mcg PO DAILY Qty: 90 3RF fluticasone propionate 50 mcg/actuation spray,suspension 1 spray intranasal DAILY 30 Days Qty: 16 0RF alprazolam 0.25 mg Tablet 0.25 mg PO DAILY losartan 25 mg tablet 25 mg PO DAILY clopidogrel 75 mg tablet 75 mg PO DAILY pantoprazole [Protonix] 40 mg tablet,delayed release (DR/EC) 40 mg PO DAILY@0630 polyethylene glycol 3350 [Miralax] 17 gram powder in packet 17 g PO DAILY PRN (Reason: Constipation) acetaminophen 325 mg Tablet 325 mg PO Q4H PRN (Reason: Pain) citalopram 10 mg Tablet 10 mg PO DAILY fluticasone propion-salmeterol [Advair HFA] 115-21 mcg/actuation HFA aerosol inhaler 2 puff inhalation BID mirabegron [Myrbetriq] 25 mg tablet extended release 24 hr 25 mg PO DAILY 90 Days Qty: 90 3RF citalopram [Celexa] 20 mg tablet 20 mg PO BEDTIME Discharge Orders: Discharge Order (Routine); Ordered 02/12/25 Ordered By: Balwinder Ignacio Diet: Advance to usual diet Activity on Discharge: As tolerated Stand Alone Forms: Patient Portal Discharge page Print Language: Italian Care Plan Goals: manage gi bleed Health Concerns: gi bleed Plan of Treatment: rechallenge with plavix, if rebleeds might need capsule endoscopy follow up with GI Assessment: see above Patient Instructions: Blood Transfusion Discharge Instructions
--- NOTE | 2025-02-12 10:47 | MHC.CM.PN ---
IMM 02/12/25 Patient is discharged today. She will transfer to [facility]. She will transport via BLS @ 1pm today. The patient, her son and the facility have been notified of the transport time. All dc info has been sent to the STR.
--- NOTE | 2025-02-12 10:48 | MHC.SLORD ---
Speech Language Pathology Order Status: Pt has resumed eating regular diet with thin liquids, no oropharyngeal dysphagia (pre-existing or post GI procedure). Recc reviewed with pt who is in agreement. Assessment not needed. MD notified.
[2025-02-12 11:25] VITALS: BP 129/59; PULSE 93; RESP 18; TEMP 36.8; O2SAT 95
== END 2025-02-12 13:19 | disposition skilled nursing facility (03) | DRG 378 ==
LOC: HO.ED 22:10 → HO.EDOVER 22:54 → HO.IMC 23:57
PROVIDERS: Internal Medicine Gastroenterology; Physician Assistant; Physician Assistant Medical; Admitting Provider Nurse Practitioner Family; Emergency Provider Emergency Medicine; PCP Internal Medicine; Visit Provider Internal Medicine
PROC: 0DJ08ZZ Inspection of Upper Intestinal Tract, Via Natural or Artificial Opening Endoscopic (ICD-10-PCS; CPT 43235; principal; 2025-02-11 14:30)
DX: K92.2 Gastrointestinal hemorrhage, unspecified (principal); D61.818 Other pancytopenia; Z95.2 Presence of prosthetic heart valve; F41.9 Anxiety disorder, unspecified; E53.8 Deficiency of other specified B group vitamins; R33.9 Retention of urine, unspecified; J44.9 Chronic obstructive pulmonary disease, unspecified; R29.6 Repeated falls; Z20.822 Contact with and (suspected) exposure to COVID-19; Z86.73 Personal history of transient ischemic attack (TIA), and cerebral infarction without residual deficits; Z87.891 Personal history of nicotine dependence; Z79.51 Long term (current) use of inhaled steroids; Z79.899 Other long term (current) drug therapy
CPT/HCPCS: 0241U; 36415; 71045; 73030; 74177; 80048; 80053; 80076; 81001; 82272; 82607; 82728; 82746; 83540; 83735; 84443; 84484; 85025; 85027; 86850; 86900; 86901; 86923; 88305; 88313; 88342; 93005; 97161; 97162; 99285; J2003; J2470; J2704; P9016; Q9967

== ENCOUNTER → 2025-02-09 15:16 | Outpatient (BNV) | payer MEDICARE, OTHER, SELFPAY | PROVIDERS: PCP Internal Medicine; Visit Provider Radiology Diagnostic Radiology | DX: R07.9 Chest pain, unspecified (principal) | CPT/HCPCS: 71045 ==

== ENCOUNTER 2025-02-09 22:50 | Outpatient (BNV) | payer MEDICARE, OTHER, SELFPAY | END 2025-02-11 14:15 | PROVIDERS: Admitting Provider Nurse Practitioner Family; Emergency Provider Emergency Medicine; PCP Internal Medicine; Visit Provider Radiology Diagnostic Radiology | DX: M19.012 Primary osteoarthritis, left shoulder (principal) | CPT/HCPCS: 73030 ==

== ENCOUNTER 2025-02-09 22:50 | Outpatient (BNV) | payer MEDICARE, OTHER, SELFPAY | END 2025-02-10 00:43 | PROVIDERS: Admitting Provider Nurse Practitioner Family; Emergency Provider Emergency Medicine; PCP Internal Medicine; Visit Provider Radiology Diagnostic Radiology | DX: R10.32 Left lower quadrant pain (principal) | CPT/HCPCS: 74177 ==

== ENCOUNTER → 2025-02-09 22:50 | Outpatient (BNV) | payer MEDICARE, OTHER, SELFPAY | PROVIDERS: Admitting Provider Nurse Practitioner Family; Emergency Provider Emergency Medicine; PCP Internal Medicine; Visit Provider Internal Medicine Cardiovascular Disease | DX: I44.0 Atrioventricular block, first degree (principal) | CPT/HCPCS: 93010 ==

== ENCOUNTER → 2025-02-09 22:50 | Outpatient (BNV) | payer MEDICARE, OTHER, SELFPAY | PROVIDERS: Admitting Provider Nurse Practitioner Family; Emergency Provider Emergency Medicine; PCP Internal Medicine; Visit Provider Internal Medicine | DX: E53.8 Deficiency of other specified B group vitamins (principal) | CPT/HCPCS: 99233; 99239; 99499 ==

== ENCOUNTER 2025-02-12 14:28 | Outpatient (AMB) | payer MEDICARE, OTHER, SELFPAY ==
--- NOTE | 2025-02-12 14:28 | MHC.PC.OV ---
Intake Visit Reasons: Respite care Intake Note: Patient son is here to discuss Respite care and Health care proxy issues/Mental status. Quality Control Representative Required: No Bulldozer/Loader/Compactor/Scraper: Present Accompanied by: Son Allergies buspirone Allergy (Intermediate, Verified 02/12/25 14:31) Rash Sulfa (Sulfonamide Antibiotics) Allergy (Intermediate, Verified 02/12/25 14:31) RASH cefuroxime Allergy (Unknown, Verified 02/12/25 14:31) Unknown garlic [GARLIC] Allergy (Unknown, Verified 02/12/25 14:31) PER H&P metronidazole [From FLAGYL] Allergy (Unknown, Verified 02/12/25 14:31) OCULAR MIGRAINES penicillamine Allergy (Unknown, Verified 02/12/25 14:31) Unknown ciprofloxacin Adverse Reaction (Intermediate, Verified 02/12/25 14:31) neuropathic pain lisinopril Adverse Reaction (Intermediate, Verified 02/12/25 14:31) Cough nitrofurantoin Adverse Reaction (Mild, Verified 02/12/25 14:31) GI side effects cefuroxime Allergy (Intermediate, Uncoded 02/12/25 14:31) wheezy cough/itch flagyl Allergy (Unknown, Uncoded 02/12/25 14:31) Unknown From KEFLEX Allergy (Unknown, Uncoded 02/12/25 14:31) RASH Metoprolol Tartrate Allergy (Unknown, Uncoded 02/12/25 14:31) Unknown Sulfacet-R Allergy (Unknown, Uncoded 02/12/25 14:31) Unknown Tobacco use date assessed: 11/01/24 Dental Screening Dental Screen Date: 09/12/24 HPI Respite care HPI Details 3 days stomach pain-intermittent- had gi bleed 2 PRBC-, EGD done- in [facility] now,. PAtient is confused and is not able to take care o herself and has been known not taking med. (case management associate luan herrera//Ludmila) Patient has cognitive impairment and is problematic staying home. This will not be safe. Visiting Nurse Allie is familiar with having more confusion. [facility] Medical History Acute diverticulitis LLQ abdominal pain Contusion of right lower leg Otitis media Cough Bronchitis Pelvic pain Chronic cough Elevated IgE level Status post fall Annual wellness visit Hip pain Post-menopausal URI (upper respiratory infection) Sensation of pressure in bladder area Chest pain Elevated blood sugar Oral candidiasis GERD (gastroesophageal reflux disease) Pulmonary nodule HTN (hypertension) Heart palpitations Constipation Breast cancer screening Breast pain, left Elevated vitamin B12 level Neck muscle spasm Strain of neck muscle Low back pain Pubic ramus fracture Sore throat Skin tear of upper arm without complication Head injury, acute, without loss of consciousness Fall Dizziness Medication noncompliance due to cognitive impairment RLQ abdominal pain Sinusitis Flu syndrome Precordial chest pain Atypical chest pain Cold intolerance Former smoker Abnormal lung sounds Fever Bilateral calf pain Nausea Left lower quadrant abdominal pain Dysuria Fatigue Lower extremity weakness Aortic stenosis Obstipation Dark stools Lower abdominal pain Gastroenteritis Neck pain on right side Back pain Rhinitis Elevated BP without diagnosis of hypertension Non-rheumatic aortic stenosis Diverticulitis GERD (gastroesophageal reflux disease) Cat scratch Cat bite Epigastric discomfort Diarrhea Neuropathy Arthritis GERD (gastroesophageal reflux disease) HTN (hypertension) Irritable bowel Heart murmur Surgical History S/P AVR S/P TAVR (transcatheter aortic valve replacement) Hx of esophagogastroduodenoscopy Hx of colonoscopy History of tonsillectomy History of appendectomy Family History Father No problems noted. Mother No problems noted. Social History Household Members: Children Housing: House Are you a primary tree care foreman to a significant other at home: No Do you presently have visiting nurse or other home services: No Alcohol intake: never Comment: Pt still ambulate on her own even though alarms are on Patient Tobacco Use Status: Former Tobacco user Tobacco use type: Cigarette Years Smoked: 55 e-Cigarette/Vaping Use: Never Used Second Hand Smoke Exposure: Yes Advance Directives Date on File: 03/28/23 service: No Current occupational status: retired Cognitive needs: No Hearing needs: No Vision needs: Yes (glasses) Questionnaire Thrive Questionnaire Date Thrive assessed: 02/10/25 PAIGE-7 AMB Questionnaire PAIGE-7 Date PAIGE - 7 assessed: 01/07/25 Source: Developed by Drs. Anatoliy Gavin, Peyton HuntAustyn and colleagues, with an educational kentrell from [employer]. Physical exam (Primary Care) Tobacco/Smoking Status: Tobacco use Status Tobacco use date assessed 11/01/24 02/12/25 14:29 Patient Tobacco Use Status Former Tobacco user 02/12/25 14:29 Tobacco use type Cigarette 02/12/25 14:29 e-Cigarette/Vaping Use Never Used 02/12/25 14:29 Thrive Assessment: Date of Thrive Assessment Date Thrive assessed 02/10/25 02/12/25 14:29 Telehealth Telehealth Telehealth Platform: [employer] Location of provider rendering services: practice address Location of patient: address on file Patient Identification confirmed using: Name, : Yes Telehealth method: video Patient verbally consented to treatment: Yes Patient verbally consented to billing insurance company: Yes Patient informed of any privacy concerns related to visit: Yes Minutes spent on Phone/Video with Pt.: 25 Coding Level of Care Code Tele Est Pt Level 4 (02367) Diagnoses Gastrointestinal hemorrhage, unspecified gastrointestinal hemorrhage type K92.2 GI bleed type/associated pathology: unspecified gastrointestinal hemorrhage type Gastroesophageal reflux disease without esophagitis K21.9 Esophagitis presence: without esophagitis Primary hypertension I10 Hypertension type: primary hypertension S/P TAVR (transcatheter aortic valve replacement) Z95.2 Embolic stroke I63.9 Generalized anxiety disorder F41.1 Cognitive impairment R41.89 Assessment & Plan Assessment & Plan (1) GI (gastrointestinal bleed): Code(s): K92.2 - Gastrointestinal hemorrhage, unspecified Category: Medical Qualifiers: GI bleed type/associated pathology: unspecified gastrointestinal hemorrhage type Qualified Code(s): K92.2 - Gastrointestinal hemorrhage, unspecified Plan: Status post 2 units of packed RBC transfusion in the hospital (2) GERD (gastroesophageal reflux disease): Code(s): K21.9 - Gastro-esophageal reflux disease without esophagitis Category: Medical Qualifiers: Esophagitis presence: without esophagitis Qualified Code(s): K21.9 - Gastro-esophageal reflux disease without esophagitis (3) HTN (hypertension): Code(s): I10 - Essential (primary) hypertension Category: Medical Qualifiers: Hypertension type: primary hypertension Qualified Code(s): I10 - Essential (primary) hypertension (4) S/P TAVR (transcatheter aortic valve replacement): Code(s): Z95.2 - Presence of prosthetic heart valve Category: Surgical (5) Embolic stroke: Code(s): I63.9 - Cerebral infarction, unspecified Category: Medical (6) Generalized anxiety disorder: Comment: abhilash mcdonald Code(s): F41.1 - Generalized anxiety disorder Category: Medical (7) Cognitive impairment: Code(s): R41.89 - Other symptoms and signs involving cognitive functions and awareness Category: Medical Plan: That the patient has some cognitive problem with concerns about the problem of taking care of herself. Discussed the need for more input from director of casework department as well as Psychiatry/counselors regarding her behavior. Plan History of Present Illness The patient is an 84-year-old female presenting with the need for comprehensive management of her chronic medical conditions following recent hospitalization. She has a documented history of multiple chronic conditions, including generalized anxiety disorder, severe aortic stenosis post-transcatheter aortic valve replacement (TAVR), hypertension, cerebrovascular issues, and gastrointestinal disturbances resulting in anemia. In early February, the patient was hospitalized due to chest pain and anemia, requiring blood transfusions. Her hemoglobin levels were noted to fluctuate, with a decrease to 7 and a subsequent increase, currently recorded at 9.4. A GI bleed was suspected, but evaluations yielded no definitive cause. Additionally, she experiences recurrent dysuria, though recent tests were negative for infection. The patient also struggles with compliance, resulting in significant weight loss, dietary concerns, and missed medical consultations. Her daughter, the primary caregiver, expresses concern regarding the patient's non-cooperation and the potential need to invoke a healthcare proxy due to these challenges. Review of Systems - Cardiovascular: Reports chest pain; history of aortic stenosis. - Gastrointestinal: Reports recurrent abdominal discomfort and history of gastrointestinal bleeding; poor dietary intake. - Genitourinary: Reports dysuria; recent negative urinalysis. - Hematologic: Reports anemia requiring transfusion; fluctuating hemoglobin levels. - Neurological: History of TIA and CVA; recent missed neurologist appointment. - Respiratory: History of COPD. Plan The management plan focuses on resuming Plavix and continuing Protonix to manage GERD and prevent GI bleeding. Regular hematological monitoring is vital given her recent anemia. Dysuria requires further assessment if symptoms persist. Clear plans for hypertension and COPD management should be reinforced, improving adherence through caregiver involvement. Collaborating with support services and considering a healthcare proxy could help maintain compliance. Follow-up with cardiology and neurology is crucial. Nutritional counseling and support addressing her dietary intake are critical due to recent weight loss. Advance care planning discussions may be necessary. Patient was informed and verbally consented to the use of an ambient scribe for clinic note documentation during this visit. Discussion Notes During our discussion, I addressed the management strategies for her complex chronic conditions, emphasizing the importance of reintroducing Plavix and maintaining Protonix therapy. I reviewed the implications of her fluctuating hemoglobin levels post-transfusion and the need for continued hematological monitoring. Considering her reports of dysuria and negative urinalysis, I advised on further assessment options. I stressed the significance of compliance with her prescribed medication regimens, advising on involving caregivers and possibly invoking a healthcare proxy to ensure consistent care. We discussed the importance of maintaining regular follow-ups with her specialists, including cardiology and neurology, to manage her cardiovascular and neurological issues efficiently. Dietary counseling was highlighted as crucial, given her significant recent weight loss and suboptimal diet. We considered advance care planning, given her evolving care needs and reluctance with current appointments, to better align her treatment goals with her healthcare journey. Patient Instructions - Take all prescribed medications as directed. - Follow up with cardiology and neurology appointments as scheduled. - Continue dietary adjustments to ensure proper nutrition. - Monitor and report any persistent symptoms, especially related to chest pain or dysuria. - Work closely with caregivers for optimal adherence to health routines. - Consider discussions regarding advance care planning. - Report any sudden changes in health to healthcare provider immediately.
--- OUTSIDE RECORDS SUMMARY | 2025-02-12 16:37 | XMS_ITS | Clinical Summary ---
Author Organization [facility] it Address [address] [place] [address] Care Team Providers Care Dining Car Hop Name Role Phone Unavailable Primary Care Provider [...] Documents on File Type Date Recorded Patient Jewel Bearing Turner Expl anation Health Care Decision (hx) 09/07/2023 HE ALTH CARE PROXY Health Care Decision (hx) 03/03/2023 HE ALTH CARE PROXY
== END 2025-02-12 15:43 | disposition home or self-care (01) ==
LOC: HO.HMCH 14:28
PROVIDERS: PCP Internal Medicine; Visit Provider Internal Medicine
DX: I10 Essential (primary) hypertension (principal); K92.2 Gastrointestinal hemorrhage, unspecified; I63.9 Cerebral infarction, unspecified; K21.9 Gastro-esophageal reflux disease without esophagitis; Z95.2 Presence of prosthetic heart valve; F41.1 Generalized anxiety disorder; R41.89 Other symptoms and signs involving cognitive functions and awareness

== ENCOUNTER → 2025-02-12 14:28 | Outpatient (BNVA) | payer MEDICARE, OTHER, SELFPAY | PROVIDERS: PCP Internal Medicine; Visit Provider Internal Medicine | DX: Z13.89 Encounter for screening for other disorder (principal) ==

== ENCOUNTER 2025-02-24 13:00 | Outpatient (AMB) | payer MEDICARE, OTHER, SELFPAY ==
--- NOTE | 2025-02-24 13:03 | A.OFFVIS_ITS ---
Vital Signs 02/24/25 13:07 Height 5 ft 6 in Weight 172 lb 6.424 oz BMI 27.8 BP 110/56 L Blood Pressure Location Lt brachial Position Sitting Pulse 88 Pulse Source Monitor Intake Visit Reasons: f/u Microarray Specialist Required: No Accompanied by: Son Allergies buspirone Allergy (Intermediate, Verified 02/12/25 14:31) Rash Sulfa (Sulfonamide Antibiotics) Allergy (Intermediate, Verified 02/12/25 14:31) RASH cefuroxime Allergy (Unknown, Verified 02/12/25 14:31) Unknown garlic (GARLIC) Allergy (Unknown, Verified 02/12/25 14:31) PER H&P metronidazole (From FLAGYL) Allergy (Unknown, Verified 02/12/25 14:31) OCULAR MIGRAINES penicillamine Allergy (Unknown, Verified 02/12/25 14:31) Unknown ciprofloxacin Adverse Reaction (Intermediate, Verified 02/12/25 14:31) neuropathic pain lisinopril Adverse Reaction (Intermediate, Verified 02/12/25 14:31) Cough nitrofurantoin Adverse Reaction (Mild, Verified 02/12/25 14:31) GI side effects cefuroxime Allergy (Intermediate, Uncoded 02/12/25 14:31) wheezy cough/itch flagyl Allergy (Unknown, Uncoded 02/12/25 14:31) Unknown From KEFLEX Allergy (Unknown, Uncoded 02/12/25 14:31) RASH Metoprolol Tartrate Allergy (Unknown, Uncoded 02/12/25 14:31) Unknown Sulfacet-R Allergy (Unknown, Uncoded 02/12/25 14:31) Unknown Medication List - Last Reconciled 02/24/25 by Guillaume Callahan MD acetaminophen 325 mg PO Q4H PRN albuterol sulfate 90 mcg/actuation 2 puffs inhalation Q4-6H PRN alprazolam 0.25 mg PO DAILY cholecalciferol (vitamin D3) (Vitamin D3) 50 mcg PO DAILY citalopram 10 mg PO DAILY citalopram (Celexa) 20 mg PO BEDTIME clopidogrel 75 mg PO DAILY fluticasone propion-salmeterol 115-21 mcg/actuation (Advair HFA) 2 puffs inhalation BID fluticasone propionate 50 mcg/actuation 1 spray intranasal DAILY 30 days losartan 25 mg PO DAILY mirabegron ER (Myrbetriq) 25 mg PO DAILY 90 days pantoprazole (Protonix) 40 mg PO DAILY@0630 polyethylene glycol 3350 (Miralax) 17 grams PO DAILY PRN HPI Comments Details: 83-year-old female who is here for follow-up. She is background of severe symptomatic aortic valve stenosis and was referred for transcatheter aortic valve replacement which she underwent recently at [facility]. Unfortunately her clinical course was complicated by CVA. 10/11/2023: She returns for follow-up today. She had echocardiography performed on September 25 2023 showing normal left ventricular function with ejection fraction 68%. Normal right ventricular size and function. Bioprosthetic aortic valve which was functioning normally. No paravalvular leak noted. She is complaining of left-sided lower abdominal pain and constipation. She said she went to the emergency department a few times over the last week or so. On October 07 she was diagnosed with diverticulitis and was prescribed amoxicillin clavulanate but it appears she did not fill the script till last night and took the 1st dose last evening and 2nd dose this morning. She has significant pain on the left side of abdomen and clearly has some peritoneal sinus to as she is getting pain with movement. She also has nausea and poor appetite. She is little more forgetful. 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 02/14/24: She is here for f/u. She was sent to ER on last visit for divertilculitis. She has recovered from that. She is complaining about nervousness and anxiety. She has been on xanax for 40 years. She is saying her psychiatrist is cutting back on it. she has been more forgetful lately. She has lost weight approximately 10 pounds over the last 2 months. 08/12/2024: She is here for follow-up. She underwent repeat echocardiography in July 2024 which showed normally functioning bioprosthetic valve in aortic position with hyperdynamic LV function. She is complaining of some bruising of her skin. Labs reviewed. Blood pressure control is good. 02/24/2025: Here for follow-up. She unfortunately had a mechanical fall and fractured her wrist. She currently has the wrist in brace. She is going to follow up with Orthopedics soon. She has been in a rehab facility since then. She is denying any chest pain or shortness of breath. Blood pressure is well controlled. [facility] Medical History Acute diverticulitis LLQ abdominal pain Contusion of right lower leg Otitis media Cough Bronchitis Pelvic pain Chronic cough Elevated IgE level Status post fall Annual wellness visit Hip pain Post-menopausal URI (upper respiratory infection) Sensation of pressure in bladder area Chest pain Elevated blood sugar Oral candidiasis GERD (gastroesophageal reflux disease) Pulmonary nodule HTN (hypertension) Heart palpitations Constipation Breast cancer screening Breast pain, left Elevated vitamin B12 level Neck muscle spasm Strain of neck muscle Low back pain Pubic ramus fracture Sore throat Skin tear of upper arm without complication Head injury, acute, without loss of consciousness Fall Dizziness Medication noncompliance due to cognitive impairment RLQ abdominal pain Sinusitis Flu syndrome Precordial chest pain Atypical chest pain Cold intolerance Former smoker Abnormal lung sounds Fever Bilateral calf pain Nausea Left lower quadrant abdominal pain Dysuria Fatigue Lower extremity weakness Aortic stenosis Obstipation Dark stools Lower abdominal pain Gastroenteritis Neck pain on right side Back pain Rhinitis Elevated BP without diagnosis of hypertension Non-rheumatic aortic stenosis Diverticulitis GERD (gastroesophageal reflux disease) Cat scratch Cat bite Epigastric discomfort Diarrhea Neuropathy Arthritis GERD (gastroesophageal reflux disease) HTN (hypertension) Irritable bowel Heart murmur Surgical History S/P AVR S/P TAVR (transcatheter aortic valve replacement) Hx of esophagogastroduodenoscopy Hx of colonoscopy History of tonsillectomy History of appendectomy Family History Father No problems noted. Mother No problems noted. Social History Household Members: Children Housing: House Are you a primary adult care manager to a significant other at home: No Do you presently have visiting nurse or other home services: No Alcohol intake: never Comment: Pt still ambulate on her own even though alarms are on Patient Tobacco Use Status: Former Tobacco user Tobacco use type: Cigarette Years Smoked: 55 e-Cigarette/Vaping Use: Never Used Second Hand Smoke Exposure: Yes Advance Directives Date on File: 03/28/23 service: No Current occupational status: retired Cognitive needs: No Hearing needs: No Vision needs: Yes (glasses) Review of Systems Const Denies chills, Denies fatigue, Denies fever(s), Denies frequent falls, Denies weakness, Denies weight gain and Denies weight loss ENT Denies dizziness Card Denies chest pain, Denies leg edema, Denies lightheadedness, Denies palpitations, Denies dyspnea and Denies dyspnea on exertion Resp Denies cough, Denies dyspnea and Denies dyspnea on exertion GI Denies hematochezia Musc Denies abnormal gait, Denies muscle weakness, Denies numbness, Denies radiating pain into limb and Denies tingling Neuro Denies abnormal gait, Denies dizziness, Denies frequent falls, Denies numbness, Denies tingling and Denies weakness Endo Denies fatigue and Denies palpitations Physical Exam Vital Signs: Last Vital Signs Pulse 88 02/24/25 13:07 BP 110/56 L 02/24/25 13:07 BMI result Body Mass Index 27.8 GENERAL APPEARANCE: In no acute distress. NECK: no carotid bruit, no jugular venous distention. SKIN: no suspicious lesions, warm and dry. HEART: Systolic murmur aortic area. LUNGS: clear to auscultation bilaterally. ABDOMEN: soft. EXTREMITIES: no edema. PERIPHERAL PULSES: equal. NEUROLOGIC: No gross deficits, AAO X 3 Office Procedures EKG Details: Normal sinus rhythm 80 beats per minute, normal axis, nonspecific T-wave changes, QTC 457 milliseconds. [id number], Complete Assessment & Plan Assessment & Plan (1) HTN (hypertension): Code(s): I10 - Essential (primary) hypertension Category: Medical Qualifiers: Hypertension type: primary hypertension Qualified Code(s): I10 - Essential (primary) hypertension (2) S/P TAVR (transcatheter aortic valve replacement): Code(s): Z95.2 - Presence of prosthetic heart valve Category: Surgical Plan Pleasant 84 year female who has history of severe aortic valve stenosis status post transcatheter aortic valve replacement. She had periprocedural stroke which she has recovered from. She is currently taking Plavix monotherapy. Blood pressure well controlled. She unfortunately had a mechanical fall and had wrist fracture. This was a close fracture which was treated with immobilization and overall she has improved significantly. I have advised her to walk with a cane for her safety. Otherwise stable at this point. Follow-up with us in few months. Thank you for allowing me to participate in the care of your patient. Please feel free to contact me if you have any questions. Coding Level of Care Code Est Pt Level 4 (20681) Diagnoses Primary hypertension I10 Hypertension type: primary hypertension S/P TAVR (transcatheter aortic valve replacement) Z95.2 CPT Codes EKG - CPT: 27968-[id number], Complete ([id number])
[2025-02-24 13:07] VITALS: BP 110/56; PULSE 88; BMI 27.8
--- OUTSIDE RECORDS SUMMARY | 2025-02-24 14:26 | XMS_ITS | Encounter Summary ---
Author Organization [facility] Address [address] [place] [address] Care Team Providers Care Dealership Manager Name Role Phone Harris Gross MD Primary Care Provider [phone] Encounter Details Date Type Department Care Team (Late st Contact Info) Description 02/13/2025 Lab Requisition [facility] - Main Lab [address] [facility] [place] [address] Harris Gross MD [address] [place], [place] [id number] Vitamin D deficiency, unspecified; Gastrointestinal hemorrhage, unspecified; Aphagia Social History Tobacco Use Types Packs/Day Years Used Date Smoking Tobacco: Never Assessed Comments Unknown Sex and Gender Information Value Date Recorded Sex Assigned at Not on file Legal Sex Female 7:01 PM EST Gender Identity Not on file Sexual Orientation Not on file documented as of this encounter Plan of Treatment Not on file documented as of this encounter Procedures Procedure Name Priority Date/Time Associated Diagnosis Comments VITAMIN D 25 HYDROXY Routine 02/13/2025 6:49 AM EDT Vitamin D deficiency, unspecified Gastrointestinal hemorrhage, unspecified Aphagia COMPLETE BLOOD COUNT Routine 02/13/2025 6:49 AM EDT Vitamin D deficiency, unspecified Gastrointestinal hemorrhage, unspecified Aphagia THYROID STIMULATING HORMONE Routine 02/13/2025 6:49 AM EDT Vitamin D deficiency, unspecified Gastrointestinal hemorrhage, unspecified Aphagia VITAMIN B12 Routine 02/13/2025 6:49 AM EDT Vitamin D deficiency, unspecified Gastrointestinal hemorrhage, unspecified Aphagia COMPREHENSIVE METABOLIC PANEL Routine 02/13/2025 6:49 AM EDT Vitamin D deficiency, unspecified Gastrointestinal hemorrhage, unspecified Aphagia documented in this encounter Results * Vitamin B12 (02/13/2025 6:49 AM EDT) [facility] Vitamin B-12 391 250 - 900 pcg/mL LAB CHEMISTRY METHOD 02/13/2025 10:12 AM EDT [facility] Blood Venous blood specimen / Unknown Venipuncture / Unknown 02/13/2025 6:49 AM EDT 02/13/2025 8:56 AM EDT us Harris Gross MD LAB BLOOD ORDERABLES Final Resul t Performing Organization Address [facility]/ZIP Co de Phone Number [facility] [address] [place] [address], [place] [phone] * Vitamin D 25 hydroxy (02/13/2025 6:49 AM EDT) [facility] Vit D, 25-Hydroxy 57.4 30.0 - 80.0 ng/mL LAB CHEMISTRY METHOD 02/13/2025 11:18 AM EDT [facility] Blood Venous blood specimen / Unknown Venipuncture / Unknown 02/13/2025 6:49 AM EDT 02/13/2025 8:56 AM EDT us Harris Gross MD LAB BLOOD ORDERABLES Final Resul t [facility] [address] [place] [address], [place] [phone] * Thyroid stimulating hormone (02/13/2025 6:49 AM EDT) [facility] TSH 1.12 0.40 - 4.00 mcIU/mL LAB CHEMISTRY METHOD 02/13/2025 11:19 AM EDT [facility] Blood Venous blood specimen / Unknown Venipuncture / Unknown 02/13/2025 6:49 AM EDT 02/13/2025 8:56 AM EDT Harris Gross MD LAB BLOOD ORDERABLES Final Resul t [facility] [address] [place] [address], [place] [phone] * (ABNORMAL) Comprehensive metabolic panel (02/13/2025 6:49 AM EDT) Sodium 140 133 - 145 mmol/L LAB CHEMISTRY METHOD 02/13/2025 10:12 AM [facility] Potassium 3.8 3.5 - 5.5 mmol/L LAB CHEMISTRY METHOD 02/13/2025 10:12 AM [facility] Chloride 105 96 - 110 mmol/L LAB CHEMISTRY METHOD 02/13/2025 10:12 AM [facility] CO2 29 21 - 32 mmol/L LAB CHEMISTRY METHOD 02/13/2025 10:12 AM [facility] Anion Gap 6 3 - 11 LAB CHEMISTRY METHOD 02/13/2025 10:12 AM [facility] Glucose 91 70 - 100 mg/dL LAB CHEMISTRY METHOD 02/13/2025 10:12 AM [facility] BUN 24 5 - 25 mg/dL LAB CHEMISTRY METHOD 02/13/2025 10:12 AM [facility] Creatinine 0.88 0.50 - 1.10 mg/dL LAB CHEMISTRY METHOD 02/13/2025 10:12 AM [facility] eGFR 65 >=60 mL/min/1. 73m2 LAB CHEMISTRY METHOD 02/13/2025 10:12 AM [facility] Comment:Calculation based on the Chronic Kidney Disease Epidemiology Collaboration (CKD-EPI) equation refit without adjustment for race. BUN/Creatinine Ratio 27.3 LAB CHEMISTRY METHOD 02/13/2025 10:12 AM [facility] Calcium 9.2 8.5 - 10.5 mg/dL LAB CHEMISTRY METHOD 02/13/2025 10:12 AM [facility] AST (SGOT) 14 10 - 42 unit/L LAB CHEMISTRY METHOD 02/13/2025 10:12 AM [facility] ALT (SGPT) 14 10 - 60 unit/L LAB CHEMISTRY METHOD 02/13/2025 10:12 AM [facility] Alkaline Phosphatase 88 42 - 121 unit/L LAB CHEMISTRY METHOD 02/13/2025 10:12 AM [facility] Total Protein 5.9(L) 6.0 - 8.0 g/dL LAB CHEMISTRY METHOD 02/13/2025 10:12 AM [facility] Albumin 3.1(L) 3.2 - 5.0 g/dL LAB CHEMISTRY METHOD 02/13/2025 10:12 AM [facility] Total Bilirubin 0.4 0.0 - 1.4 mg/dL LAB CHEMISTRY METHOD 02/13/2025 10:12 AM [facility] Blood Venous blood specimen / Unknown Venipuncture / Unknown 02/13/2025 6:49 AM EDT 02/13/2025 8:56 AM EDT us Harris Gross MD LAB BLOOD ORDERABLES Final Resul t [facility] [address] [place] [address], * (ABNORMAL) Complete blood count (02/13/2025 6:49 AM EDT) WBC 3.3(L) 4.8 - 10.8 K/mcL LAB HEMETOLOGY METHOD 02/13/2025 9:07 AM [facility] RBC 2.90(L) 3.80 - 4.80 M/mcL LAB HEMETOLOGY METHOD 02/13/2025 9:07 AM [facility] Hemoglobin 8.4(L) 11.5 - 16.0 g/dL LAB HEMETOLOGY METHOD 02/13/2025 9:07 AM [facility] Hematocrit 27.2(L) 35.0 - 47.0 % LAB HEMETOLOGY METHOD 02/13/2025 9:07 AM [facility] MCV 94.8 79.0 - 98.0 FL LAB HEMETOLOGY METHOD 02/13/2025 9:07 AM [facility] MCH 29.3 27.0 - 32.0 pcg LAB HEMETOLOGY METHOD 02/13/2025 9:07 AM [facility] MCHC 30.9(L) 32.0 - 37.0 g/dL LAB HEMETOLOGY METHOD 02/13/2025 9:07 AM [facility] RDW 14.9 11.0 - 15.0 % LAB HEMETOLOGY METHOD 02/13/2025 9:07 AM [facility] Platelets 132 130 - 400 K/mcL LAB HEMETOLOGY METHOD 02/13/2025 9:07 AM [facility] MPV 11.8(H) 7.0 - 11.0 FL LAB HEMETOLOGY METHOD 02/13/2025 9:07 AM [facility] NRBC 0.0 <1.0 % LAB HEMETOLOGY METHOD 02/13/2025 9:07 AM [facility] NRBC Absolute 0.00 <0.10 K/mcL LAB HEMETOLOGY METHOD 02/13/2025 9:07 AM [facility] Blood Venous blood specimen / Unknown Venipuncture / Unknown 02/13/2025 6:49 AM EDT 02/13/2025 8:56 AM EDT Harris Gross MD LAB BLOOD ORDERABLES Final Resul t [facility] [address] [place] [address], documented in this encounter Visit Diagnoses Diagnosis Vitamin D deficiency, unspecified Gastrointestinal hemorrhage, unspecified Aphagia Anorexia documented in this encounter Care Teams Dealership Manager Relationship Specialty Start Date End Date Harris Gross MD [address] [place] [address] [address] [place] [address] PCP - General Geriatric Medicine 02/13/25 documented as of this encounter
== END 2025-02-24 13:56 | disposition home or self-care (01) ==
LOC: HO.HCS 13:01
PROVIDERS: PCP Internal Medicine; Visit Provider Internal Medicine Cardiovascular Disease
DX: I10 Essential (primary) hypertension (principal); Z95.2 Presence of prosthetic heart valve
CPT/HCPCS: 93010; 99214

== ENCOUNTER → 2025-02-24 13:00 | Outpatient (BNVA) | payer MEDICARE, OTHER, SELFPAY | PROVIDERS: PCP Internal Medicine; Visit Provider Internal Medicine Cardiovascular Disease | DX: I10 Essential (primary) hypertension (principal); Z95.2 Presence of prosthetic heart valve; R94.31 Abnormal electrocardiogram [ECG] [EKG] | CPT/HCPCS: 93005; 99212 ==

== ENCOUNTER 2025-02-28 13:06 | Outpatient (REF) | payer MEDICARE, OTHER, SELFPAY ==
--- NOTE | ~2025-02-28 | CT_ITS ---
CLINICAL HISTORY: R91.1 - Solitary pulmonary nodule CT chest with contrast Comparison: 08/19/2024, 06/14/2022 Findings: Lung kumar are clear without acute infiltrates. Emphysema with stable left upper lobe scarring. Stable scattered bilateral pulmonary nodules. No further workup will be needed given stability since 2021. No significant mediastinal adenopathy. No significant free pleural fluid. Prosthetic cardiac valve noted. Dense coronary artery calcifications. Degenerative change in thoracic spine. No significant focal bony abnormalities. Impression: No acute processes This document has been electronically signed by: Samuel Concepcion MD on 03/01/2025 20:29:07
--- OUTSIDE RECORDS SUMMARY | 2025-02-28 13:40 | XMS_ITS | Encounter Summary ---
Author Organization [facility] Address [address] [place] [address] Care Team Providers Care Color Card Maker Name Role Phone Harris Gross MD Primary Care Provider [phone] Encounter Details Date Type Department Care Team (Late st Contact Info) Description 02/13/2025 Lab Requisition [facility] - Main Lab [address] [facility] [place] [address] Harris Gross MD [address] [place], [place] [id number] Vitamin D deficiency, unspecified; Gastrointestinal hemorrhage, unspecified; [...] * Vitamin B12 (02/13/2025 6:49 AM EDT) [facility] Vitamin B-12 391 250 - 900 pcg/mL LAB CHEMISTRY METHOD 02/13/2025 10:12 AM EDT [facility] Blood Venous blood specimen / Unknown Venipuncture / Unknown 02/13/2025 6:49 AM EDT 02/13/2025 8:56 AM EDT us Harris Gross MD LAB BLOOD ORDERABLES Final Resul t Performing Organization Address [facility]/ZIP Co de Phone Number [facility] [address] [place] [address], [place] [phone] * Vitamin D 25 hydroxy (02/13/2025 6:49 AM EDT) [facility] Vit D, 25-Hydroxy 57.4 30.0 - 80.0 ng/mL LAB CHEMISTRY METHOD 02/13/2025 11:18 AM EDT [facility] Blood Venous blood specimen / Unknown Venipuncture / Unknown 02/13/2025 6:49 AM EDT 02/13/2025 8:56 AM EDT us Harris Gross MD LAB BLOOD ORDERABLES Final Resul t [facility] [address] [place] [address], [place] [phone] * Thyroid stimulating hormone (02/13/2025 6:49 AM EDT) [facility] TSH 1.12 0.40 - 4.00 mcIU/mL LAB CHEMISTRY METHOD 02/13/2025 11:19 AM EDT [facility] Blood Venous blood specimen / Unknown Venipuncture / Unknown 02/13/2025 6:49 AM EDT 02/13/2025 8:56 AM EDT Harris Gross MD LAB BLOOD ORDERABLES Final Resul t [facility] [address] [place] [address], [place] [phone] * (ABNORMAL) Comprehensive metabolic panel (02/13/2025 6:49 AM EDT) Sodium 140 133 - 145 mmol/L LAB CHEMISTRY METHOD 02/13/2025 10:12 AM [facility] Potassium 3.8 3.5 - 5.5 mmol/L LAB CHEMISTRY METHOD 02/13/2025 10:12 AM [facility] Chloride 105 96 - 110 mmol/L LAB CHEMISTRY METHOD 02/13/2025 10:12 AM [facility] CO2 29 21 - 32 mmol/L LAB CHEMISTRY METHOD 02/13/2025 10:12 AM [facility] Anion Gap 6 3 - 11 LAB CHEMISTRY METHOD 02/13/2025 10:12 AM [facility] Glucose 91 70 - 100 mg/dL LAB CHEMISTRY METHOD 02/13/2025 10:12 AM [facility] BUN 24 5 - 25 mg/dL LAB CHEMISTRY METHOD 02/13/2025 10:12 AM [facility] Creatinine 0.88 0.50 - 1.10 mg/dL LAB CHEMISTRY METHOD 02/13/2025 10:12 AM [facility] eGFR 65 >=60 mL/min/1. 73m2 LAB CHEMISTRY METHOD 02/13/2025 10:12 AM [facility] Comment:Calculation based on the Chronic Kidney Disease Epidemiology Collaboration (CKD-EPI) equation refit without adjustment for race. BUN/Creatinine Ratio 27.3 LAB CHEMISTRY METHOD 02/13/2025 10:12 AM [facility] Calcium 9.2 8.5 - 10.5 mg/dL LAB CHEMISTRY METHOD 02/13/2025 10:12 AM [facility] AST (SGOT) 14 10 - 42 unit/L LAB CHEMISTRY METHOD 02/13/2025 10:12 AM [facility] ALT (SGPT) 14 10 - 60 unit/L LAB CHEMISTRY METHOD 02/13/2025 10:12 AM [facility] Alkaline Phosphatase 88 42 - 121 unit/L LAB CHEMISTRY METHOD 02/13/2025 10:12 AM [facility] Total Protein 5.9(L) 6.0 - 8.0 g/dL LAB CHEMISTRY METHOD 02/13/2025 10:12 AM [facility] Albumin 3.1(L) 3.2 - 5.0 g/dL LAB CHEMISTRY METHOD 02/13/2025 10:12 AM [facility] Total Bilirubin 0.4 0.0 - 1.4 mg/dL LAB CHEMISTRY METHOD 02/13/2025 10:12 AM [facility] Blood Venous blood specimen / Unknown Venipuncture / Unknown 02/13/2025 6:49 AM EDT 02/13/2025 8:56 AM EDT us Harris Gross MD LAB BLOOD ORDERABLES Final Resul t [facility] [address] [place] [address], * (ABNORMAL) Complete blood count (02/13/2025 6:49 AM EDT) WBC 3.3(L) 4.8 - 10.8 K/mcL LAB HEMETOLOGY METHOD 02/13/2025 9:07 AM [facility] RBC 2.90(L) 3.80 - 4.80 M/mcL LAB HEMETOLOGY METHOD 02/13/2025 9:07 AM [facility] Hemoglobin 8.4(L) 11.5 - 16.0 g/dL LAB HEMETOLOGY METHOD 02/13/2025 9:07 AM [facility] Hematocrit 27.2(L) 35.0 - 47.0 % LAB HEMETOLOGY METHOD 02/13/2025 9:07 AM [facility] MCV 94.8 79.0 - 98.0 FL LAB HEMETOLOGY METHOD 02/13/2025 9:07 AM [facility] MCH 29.3 27.0 - 32.0 pcg LAB HEMETOLOGY METHOD 02/13/2025 9:07 AM [facility] MCHC 30.9(L) 32.0 - 37.0 g/dL LAB HEMETOLOGY METHOD 02/13/2025 9:07 AM [facility] RDW 14.9 11.0 - 15.0 % LAB HEMETOLOGY METHOD 02/13/2025 9:07 AM [facility] Platelets 132 130 - 400 K/mcL LAB HEMETOLOGY METHOD 02/13/2025 9:07 AM [facility] MPV 11.8(H) 7.0 - 11.0 FL LAB HEMETOLOGY METHOD 02/13/2025 9:07 AM [facility] NRBC 0.0 <1.0 % LAB HEMETOLOGY METHOD 02/13/2025 9:07 AM [facility] NRBC Absolute 0.00 <0.10 K/mcL LAB HEMETOLOGY METHOD 02/13/2025 9:07 AM [facility] Blood Venous blood specimen / Unknown Venipuncture / Unknown 02/13/2025 6:49 AM EDT 02/13/2025 8:56 AM EDT Harris Gross MD LAB BLOOD ORDERABLES Final Resul t [facility] [address] [place] [address], documented in this encounter Visit Diagnoses Diagnosis Vitamin D deficiency, unspecified Gastrointestinal hemorrhage, unspecified Aphagia Anorexia documented in this encounter Care Teams Color Card Maker Relationship Specialty Start Date End Date Harris Gross MD [address] [place] [address] [address] [place] [address] PCP - General Geriatric Medicine 02/13/25 documented as of this encounter
== END 2025-02-28 13:07 | disposition home or self-care (01) ==
LOC: HO.CT 13:06
PROVIDERS: PCP Internal Medicine; Visit Provider Nurse Practitioner Family
DX: R91.1 Solitary pulmonary nodule (principal)
CPT/HCPCS: 71250

== ENCOUNTER → 2025-02-28 13:12 | Outpatient (BNV) | payer MEDICARE, OTHER, SELFPAY | PROVIDERS: PCP Internal Medicine; Visit Provider Radiology Diagnostic Radiology | DX: R91.1 Solitary pulmonary nodule (principal) | CPT/HCPCS: 71250 ==

== ENCOUNTER 2025-03-12 13:31 | Outpatient (AMB) | payer MEDICARE, OTHER, SELFPAY ==
--- NOTE | 2025-03-12 13:33 | A.OFFVIS_ITS ---
Vital Signs 03/12/25 13:34 Height 5 ft 6 in Weight 172 lb BMI 27.8 Intake Visit Reasons: OV-Right Distal Radius Fx -w/xrays Intake Note: Bella is an 84 year old female who presents today for a follow up of right distal radius fracture, DOI 11/22/24. She continues to wear a Velcro wrist splint and was instructed to slowly increase lifting. Patient reports that she is doing very well with good ROM and no pain. She continues to wear a wrist brace Allergies buspirone Allergy (Intermediate, Verified 03/14/25 10:25) Rash Sulfa (Sulfonamide Antibiotics) Allergy (Intermediate, Verified 03/14/25 10:25) RASH cefuroxime Allergy (Unknown, Verified 03/14/25 10:25) Unknown garlic (GARLIC) Allergy (Unknown, Verified 03/14/25 10:25) PER H&P metronidazole (From FLAGYL) Allergy (Unknown, Verified 03/14/25 10:25) OCULAR MIGRAINES penicillamine Allergy (Unknown, Verified 03/14/25 10:25) Unknown ciprofloxacin Adverse Reaction (Intermediate, Verified 03/14/25 10:25) neuropathic pain lisinopril Adverse Reaction (Intermediate, Verified 03/14/25 10:25) Cough nitrofurantoin Adverse Reaction (Mild, Verified 03/14/25 10:25) GI side effects cefuroxime Allergy (Intermediate, Uncoded 02/12/25 14:31) wheezy cough/itch flagyl Allergy (Unknown, Uncoded 02/12/25 14:31) Unknown From KEFLEX Allergy (Unknown, Uncoded 02/12/25 14:31) RASH Metoprolol Tartrate Allergy (Unknown, Uncoded 02/12/25 14:31) Unknown Sulfacet-R Allergy (Unknown, Uncoded 02/12/25 14:31) Unknown HPI HPI OV-Right Distal Radius Fx -w/xrays: Details: Bella is an 84 year old female who presents today for a follow up of right distal radius fracture, DOI 11/22/24. She continues to wear a Velcro wrist splint and was instructed to slowly increase lifting. Patient reports that she is doing very well with good ROM and no pain. She continues to wear a wrist brace with daytime activities. [facility] Medical History Acute diverticulitis LLQ abdominal pain Contusion of right lower leg Otitis media Cough Bronchitis Pelvic pain Chronic cough Elevated IgE level Status post fall Annual wellness visit Hip pain Post-menopausal URI (upper respiratory infection) Sensation of pressure in bladder area Chest pain Elevated blood sugar Oral candidiasis GERD (gastroesophageal reflux disease) Pulmonary nodule HTN (hypertension) Heart palpitations Constipation Breast cancer screening Breast pain, left Elevated vitamin B12 level Neck muscle spasm Strain of neck muscle Low back pain Pubic ramus fracture Sore throat Skin tear of upper arm without complication Head injury, acute, without loss of consciousness Fall Dizziness Medication noncompliance due to cognitive impairment RLQ abdominal pain Sinusitis Flu syndrome Precordial chest pain Atypical chest pain Cold intolerance Former smoker Abnormal lung sounds Fever Bilateral calf pain Nausea Left lower quadrant abdominal pain Dysuria Fatigue Lower extremity weakness Aortic stenosis Obstipation Dark stools Lower abdominal pain Gastroenteritis Neck pain on right side Back pain Rhinitis Elevated BP without diagnosis of hypertension Non-rheumatic aortic stenosis Diverticulitis GERD (gastroesophageal reflux disease) Cat scratch Cat bite Epigastric discomfort Diarrhea Neuropathy Arthritis GERD (gastroesophageal reflux disease) HTN (hypertension) Irritable bowel Heart murmur Surgical History S/P AVR S/P TAVR (transcatheter aortic valve replacement) Hx of esophagogastroduodenoscopy Hx of colonoscopy History of tonsillectomy History of appendectomy Family History Father No problems noted. Mother No problems noted. Social History Household Members: Children Housing: House Are you a primary direct support professional caregiver to a significant other at home: No Do you presently have visiting nurse or other home services: No Alcohol intake: never Comment: Pt still ambulate on her own even though alarms are on Patient Tobacco Use Status: Former Tobacco user Tobacco use type: Cigarette Years Smoked: 55 e-Cigarette/Vaping Use: Never Used Second Hand Smoke Exposure: Yes Advance Directives Date on File: 03/28/23 service: No Current occupational status: retired Cognitive needs: No Hearing needs: No Vision needs: Yes (glasses) Review of Systems Const All systems reviewed & are unremarkable except as noted in HPI and below Physical Exam Vital Signs: BMI result Body Mass Index 27.8 Extrem Other: Patient is alert, oriented, and in no acute distress. Neuro: Normal sensation of the tips of all digits of the right hand at this time Vascular: Cap refill brisk Pain: No tenderness to palpation noted about the distal radius of the right wrist No pain with range of motion of the hand ROM: Patient is able to make a closed fist and extend all digits of the right hand fully Skin: No lacerations or abrasions. General: No ecchymosis, erythema, or evidence of infection. Psych: Appears grossly normal Affect normal Attitude cooperative Assessment & Plan Assessment & Plan (1) Fracture of right distal radius: Comment: November 2024 Code(s): S52.501A - Unspecified fracture of the lower end of right radius, initial encounter for closed fracture Category: Medical Plan 1. Minimally displaced fracture of right distal radius Date of injury 11/22/2024 Patient is educated about this condition Patient was educated about the typical treatment course Patient is educated that she can discontinue use of the Velcro wrist splint at this time Patient is educated she should continue working with occupational therapy to work on range of motion of her right wrist, as she is at rehab and has been working with therapy. Patient states understanding of this and are amenable to this plan Patient will follow-up as needed with any acute concerns Coding Level of Care Code Global (38896) Diagnoses Fracture of right distal radius S52.501A
[2025-03-12 13:34] VITALS: BMI 27.8
--- OUTSIDE RECORDS SUMMARY | 2025-03-12 14:20 | XMS_ITS | Data Portability ---
Author Organization [facility], Telehealth Patient Home Address [address] [place] [id number] Assessment No assessment recorded. Plan of Treatment Reminders Order Date Submit Date Provider Last Modified By Organization Details Last Modified Time Details Appointments None recorded. Lab BMP, blood [address] [facility], [address] [place] [address], [place], [phone], 9 07:42:19 lipid panel, blood [address] [facility], [address] [place] [address], [place], [phone], 9 07:42:20 Referral None recorded. Procedures None recorded. Surgeries None recorded. Imaging None recorded. Medication Orders Cipro 500 mg tablet 2018 019 [facility] [place] [id number], [address] [place], [place], [id number], 9 11:53:38 Zithromax Z-Rajesh 250 mg tablet 2018 019 [id number], [address] [place], [place], [id number], 9 11:53:23 metoprolol succinate ER 25 mg tablet,exte nded release 24 hr 2018 019 [id number], [address] [place], [place], [phone], 9 11:15:40 Patient Targets Encounter Date Encounter Id Patient Goals Patient Target Last Modified By Organization Details Last Modified Time 09/26/2018 [id number] Call therapist to schedule counseling mindyerlinda Not available 09/26/2018 11:54:07 Patient Instructions Encounter Date Encounter Id Patient Instructions Last Modified By Organization Details Last Modified Time 09/21/2018 [id number] Relaxation, reconsider escitalopram- will review at f/u next week to avoid dual med starting together marilynn Not available 09/21/2018 15:27:44 09/26/2018 [id number] pulse oximetry* marilynn Not available 09/26/2018 11:54:08 10/08/2018 [id number] Acute Sinusitis: Care Instructions marilynn Not available 10/08/2018 11:28:17 pulse oximetry* marilynn Not available 10/08/2018 11:28:17 12/04/2018 [id number] pulse oximetry* marilynn Not available 12/04/2018 12:22:51 Reason for Referral None Reported. Results Created Date Observation Date Name Description Value Unit Range Abnormal Flag Note LastModifiedBy Organization Detail LastModifiedTime 09/26/1909/26/2018 pulse oxime try* Result 96 Not Available [facility] [address] [place] [address], [phone], 09/26/2018 11:15:30 10/08/19 19 10/08/2018 pulse oxime try* Result 97 Not Available [facility] [address] [place] [address], [phone], 10/08/2018 11:18:00 12/05/19 19 12/04/2018 pulse oxime try* Result 97 Not Available [facility] [address] [place] [address], [phone], 12/04/2018 11:55:20 Result Notes None recorded. Problems Name Problem SNOMED Code Status Onset Date Resolution Date Notes Provider Name and Address Organization Details Recorded Time Abdominal aortic aneurysm 476359528 Active 2017 Samina Lama NP, [address] [facility], [place], [address], [facility] 8 13:58:39 Diverticul itis 085916458 Active 2017 Tainaronnell Hanson [facility] 8 16:58:14 Chronic obstructiv e pulmonary disease 89667980 Active 2017 Tainaronnell Fongdonaldo [facility] 8 16:58:22 Aortic valve stenosis 02667269 Active 2017 Taina Margie [facility] 8 16:58:36 An[facility] 83016125 [facility] 16:58:45 Cystocele 491309635 [facility] 16:58:58 Problem Notes None recorded. Medical Equipment None Reported. Allergies Allergen ID Allergen Name Allergen Category Reaction Reaction Severity Criticality Documentation Date Start Date Code Code System Note Provider Name and Address Organization Details Recorded Time 1547 Substance with sulfonami de structure and antibacte rial mechanism of action (substanc e) medicatio n Not available Not available Not available 02/06/2018 66475 8003 SNOMED Tainaronnell Hanson [facility] 8 16:57:43 1548 Keflex medicatio n Not available Not available Not available 02/06/2018 7 RxNorm Tainaronnell Tarangoicki [facility] 8 16:57:55 2328 Flagyl medicatio n other moderate Not available 05/29/2018 6 RxNorm Tainaronnell Tarangoickdonaldo [facility] 8 11:44:55 2717 metoprolo l Not available chest pain Not available Not available 09/21/2018 6918 RxNorm Tainaronnell Hanson [facility] 9 16:31:23 Medications Name Sig [...] in Arterial blood by Pulse oximetry Systolic And Diastolic Provider Name and Address Organization Details Last Updated DateTime 9 168.91 cm 97 /min 97 % 97 % 128/84 mm[Hg] [facility] 9 14:32:26 Date Recorded Body height Heart rate Oxygen saturation Oxygen saturation in Arterial blood by Pulse oximetry Systolic And Diastolic Provider Name and Address Organization Details Last Updated DateTime 9 168.91 cm 90 /min 96 % 96 % 124/80 mm[Hg] Eunice Molina [facility] 9 11:17:24 Date Recorded Heart rate Provider Name an d Address Organization Details Last Updated DateTime 10/08/2018 84 /min Samina Lama NP, [address] [place], [address], [facility] 10/08/2018 11:28:37 Date Recorded Body height Oxygen saturation Oxygen saturation in Arterial blood by Pulse oximetry Heart rate Body temperature Systolic And Diastolic Provider Name and Address Organization Details Last Updated DateTime 9 168.91 cm 97 % 97 % 112 /min 98.2 [degF] 142/86 mm[Hg] [facility] 9 11:17:37 Date Recorded Heart rate Provider Name an d Address Organization Details Last Updated DateTime 10/19/2018 80 /min Samina Lama NP, [address] [place], [address], [facility] 10/19/2018 12:04:58 Date Recorded Body height Heart rate Oxygen saturation Oxygen saturation in Arterial blood by Pulse oximetry Systolic And Diastolic Provider Name and Address Organization Details Last Updated DateTime 9 168.91 cm 105 /min 98 % 98 % 140/80 mm[Hg] Taina Hanson [facility] 9 11:45:01 Date Recorded Body height Body mass index (BMI) Body weight Oxygen saturation Oxygen saturation in Arterial blood by Pulse oximetry Heart rate Systolic And Diastolic Provider Name and Address Organization Details Last Updated DateTime 9 168.91 cm 31.1 kg/m2 68569.6 7 g 97 % 97 % 97 /min 120/90 mm[Hg] Dahiana Ha [facility] 9 11:56:24 Social History Question Answer Notes LastModified by Organizat ion Details LastModified Time Tobacco Smoking Status Former Smoker Not Available [employer] 07/07/2020 03:36:24 What Was The Date Of Your Most Recent Tobacco Screening? 12/04/2018 [id number] Information not available 07/07/2020 Sex: Unknown Functional [...] split virus, quadrivalent, preservative 8 completed Eunice Molina [facility] 09/26/2018 11:16:26 Past Encounters Encounter ID Performer Location Encounter Start Date Encounter Closed Date Diagnosis/Indication Diagnosis SNOMED-CT Code Diagnosis ICD10 Code Diagnosis Note [id number] Deny Saleh DO [facility] [address] [facility],[place] [address] 02/07/2018 11:02:27 02/07/2018 16:46:02 Anxiety 20739114 F41.9 Nail changes 440330664 L 60.9 Abdominal aortic aneurysm 421608895 I71.4 CT 11/2017, no changes 2017, 2.85 cm Aortic david nosis, non-rheumatic 553896071 I35.0 stable Gastroesop hageal reflux disease 142261397 K21.9 d/c den[place] mints, call if persists Insomnia 408138621 G47.0 0 review proper sleep hygiene be more active during day avoid naps [id number] Deny Saleh [facility] [address] [facility], [place] [address] 03/16/2018 11:29:23 03/20/2018 08:12:01 Dehydration 46263541 E86.0 Gastroenteritis 15372724 K52.9 Aortic valve stenosis 60 958173 I35.0 stable, follow [id number] Deny Saleh [facility] [address] [facility], [place] [address] 05/16/2018 13:23:14 05/16/2018 14:06:44 Anxiety 58798120 F41.9 BID lorazepam helps Aortic valve stenosis 60 308857 I35.0 stable, echo 05/31/2017 Active or passive immunization 559951076 Z23 Abdominal aortic aneurysm 705884321 I71.4 CT 11/2017, no changes 2016, 2.85 cm Chronic ob structive pulmonary disease 12061070 J44.9 Non smoker X years, asymptomat ic Diverticular disease 397 675282 K57.90 no recent flare [id number] Deny Saleh [facility] [address] [facility] [place] [address] 05/29/2018 11:40:58 05/29/2018 16:52:51 Aortic valve stenosis 58603256 I35.0 stable, echo 05/31/2017 Anxiety 15233594 F41.9 BID lorazepam helps, discussed current fears re: Constipation 67354395 K5 9.00 [id number] Deny Saleh [facility] [address] [facility],[place] [address] 08/14/2018 11:20:27 08/14/2018 17:00:16 Anxiety 78170255 F41.9 BID lorazepam helps, discussed current fears Aortic valve stenosis 60 779360 I35.0 stable, echo 05/31/2017 Diverticulitis 681836478 K57.92 Increased frequency of urination 174187643 R35.0 [id number] Deny Saleh [facility] [address] [facility],[place] [address] 08/20/2018 11:12:33 08/20/2018 12:20:46 Anxiety 79098056 F41.9 BID alprazolam helps, discussed current fears Diverticulitis 263212823 K57.92 Aortic valve stenosis 60 823446 I35.0 stable, echo 05/31/2017 Family problems 73657216 4 Z63.79 Suggest therapy, names provided. Pt agrees [id number] Deny Saleh [facility] [address] [facility],[place] [address] 09/12/2018 10:19:31 09/12/2018 20:18:16 Abdominal aortic aneurysm 454977773 I71.4 CT 11/2017, no changes 2016, 2.85 cm Chronic ob structive pulmonary disease 67880644 J44.9 Non smoker X years, asymptomat ic Anxiety 88340040 F41.9 BID alprazolam helps, discussed current fears Aortic valve stenosis 60 773054 I35.0 stable, echo 05/31/2017 [id number] Deny Saleh [facility] [address] [facility],[place] [address] 09/21/2018 14:26:58 09/25/2018 11:17:00 Anxiety 26832219 F41.9 discussed current fears again, see below Aortic valve stenosis 60 100013 I35.0 [id number] Deny Saleh [facility] [address] [facility] [address] 09/26/2018 11:12:05 09/26/2018 13:02:53 Hypertensive disorder 37704391 I10 Chronic ob structive pulmonary disease 80262343 J44.9 Non smoker X years, asymptomat ic Anxiety 26716407 F41.9 discussed current fears again, see below Aortic valve stenosis 60 304713 I35[place] [id number] Deny Saleh [facility] [address] [facility],[place] [address] 10/08/2018 11:12:38 10/08/2018 14:35:10 Cough 37901338 R05 Acute sinusitis 07100991 J01.90 Anxiety 82945140 F41.9 revisited [id number] Deny Meadows Nun[facility]elf[facility] [address] [facility],[place] [address] 10/19/2018 11:41:00 10/19/2018 12:37:34 Diverticulitis 700209064 K57.92 Intolerant Flagyl Anxiety 47363731 F41.9 revisited Aortic valve stenosis 60 230300 I35.0 asymptomat ic Abdominal aortic aneurysm 746213274 I71.4 CT 11/2017, no changes 2016, 2.85 cm Chronic ob structive pulmonary disease 56010784 J44.9 Non smoker X [place], [place] [id number] Deny Meadows Delfino [facility] [address] [facility],[place] [address] 12/04/2018 11:49:58 12/04/2018 16:03:42 Chronic obstructive pulmonary disease 53626936 J44.9 Non smoker X years, asymptomat ic Anxiety 64376051 F41.9 revisited Aortic valve stenosis 60 690902 I35.0 asymptomat ic Health Concerns Section Related Observation LastModified by Organization Detai ls LastModified Time None Recorded Concern Status LastModified by Organization Details LastModified Time None Recorded Advance Directives Directive None Recorded Payers Insurance Date Sequence Insurance Name Policy Number Policy Berry Covered Member ID Berry Member ID Guarantor Name 12/03/2018 2 [employer] - [facility] [id number] Bella Henley [id number] Bella Henley 12/03/2018 1 MEDICARE B-CA: [facility] [employer] Bella Henley [id number] Bella Henley Notes Date Note Type Note Provider Name a nd Address Organization Details Recorded Time 09/21/2018 text/html Here with concer ns BP had panic attack this am, ambulance was called Checked BP after pts episode was 158/101 Did not start escitalopram prescribed last week , under a great deal of stress Samina Lama NP, [address] [place], [address], [facility] 09/21/2018 15:27:56 09/26/2018 text/html see previous not e ( visit 1/18/19 ) , unable to start metoprolol ? 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 this a.m. also increased voiding w/no dysuria no N/V/D/C, no BRBPR or hematuria Samina Lama NP, [address] [facility], [place], [address], [facility] 10/19/2018 12:09:27 12/04/2018 text/html Very anxious re: husbands cognitive decline/getting worn out In therapy w/Peter Dopp Son also recent renal cancer, surgery went well.-but pt. gets worked up over everything pt recently started back on allergy shots some heartburn and post nasal drip Samina Lama NP, [address] [facility], [place], [address], [facility] 12/04/2018 12:23:16 OBGyn Episode No OBEpisode recorded.
--- OUTSIDE RECORDS SUMMARY | 2025-03-12 14:20 | XMS_ITS | Encounter Summary ---
Author Organization [facility] Address [address] [place] [address] Care Team Providers Care Informatic[employer] Developer Name Role Phone Harris Gross MD Primary Care Provider [phone] Encounter Details Date Type Department Care Team (Late st Contact Info) Description 02/13/2025 Lab Requisition [facility] - Main Lab [address] [facility] [place] [address] Harris Gross MD [address] [place], [place] [id number] Vitamin D deficiency, unspecified; Gastrointestinal hemorrhage, unspecified; [...] * Vitamin B12 (02/13/2025 6:49 AM EDT) [facility] Vitamin B-12 391 250 - 900 pcg/mL LAB CHEMISTRY METHOD 02/13/2025 10:12 AM EDT [facility] Blood Venous blood specimen / Unknown Venipuncture / Unknown 02/13/2025 6:49 AM EDT 02/13/2025 8:56 AM EDT us Harris Gross MD LAB BLOOD ORDERABLES Final Resul t Performing Organization Address [facility]/ZIP Co de Phone Number [facility] [address] [place] [address], [place] [phone] * Vitamin D 25 hydroxy (02/13/2025 6:49 AM EDT) [facility] Vit D, 25-Hydroxy 57.4 30.0 - 80.0 ng/mL LAB CHEMISTRY METHOD 02/13/2025 11:18 AM EDT [facility] Blood Venous blood specimen / Unknown Venipuncture / Unknown 02/13/2025 6:49 AM EDT 02/13/2025 8:56 AM EDT us Harris Gross MD LAB BLOOD ORDERABLES Final Resul t [facility] [address] [place] [address], [place] [phone] * Thyroid stimulating hormone (02/13/2025 6:49 AM EDT) [facility] TSH 1.12 0.40 - 4.00 mcIU/mL LAB CHEMISTRY METHOD 02/13/2025 11:19 AM EDT [facility] Blood Venous blood specimen / Unknown Venipuncture / Unknown 02/13/2025 6:49 AM EDT 02/13/2025 8:56 AM EDT Harris Gross MD LAB BLOOD ORDERABLES Final Resul t [facility] [address] [place] [address], [place] [phone] * (ABNORMAL) Comprehensive metabolic panel (02/13/2025 6:49 AM EDT) Sodium 140 133 - 145 mmol/L LAB CHEMISTRY METHOD 02/13/2025 10:12 AM [facility] Potassium 3.8 3.5 - 5.5 mmol/L LAB CHEMISTRY METHOD 02/13/2025 10:12 AM [facility] Chloride 105 96 - 110 mmol/L LAB CHEMISTRY METHOD 02/13/2025 10:12 AM [facility] CO2 29 21 - 32 mmol/L LAB CHEMISTRY METHOD 02/13/2025 10:12 AM [facility] Anion Gap 6 3 - 11 LAB CHEMISTRY METHOD 02/13/2025 10:12 AM [facility] Glucose 91 70 - 100 mg/dL LAB CHEMISTRY METHOD 02/13/2025 10:12 AM [facility] BUN 24 5 - 25 mg/dL LAB CHEMISTRY METHOD 02/13/2025 10:12 AM [facility] Creatinine 0.88 0.50 - 1.10 mg/dL LAB CHEMISTRY METHOD 02/13/2025 10:12 AM [facility] eGFR 65 >=60 mL/min/1. 73m2 LAB CHEMISTRY METHOD 02/13/2025 10:12 AM [facility] Comment:Calculation based on the Chronic Kidney Disease Epidemiology Collaboration (CKD-EPI) equation refit without adjustment for race. BUN/Creatinine Ratio 27.3 LAB CHEMISTRY METHOD 02/13/2025 10:12 AM [facility] Calcium 9.2 8.5 - 10.5 mg/dL LAB CHEMISTRY METHOD 02/13/2025 10:12 AM [facility] AST (SGOT) 14 10 - 42 unit/L LAB CHEMISTRY METHOD 02/13/2025 10:12 AM [facility] ALT (SGPT) 14 10 - 60 unit/L LAB CHEMISTRY METHOD 02/13/2025 10:12 AM [facility] Alkaline Phosphatase 88 42 - 121 unit/L LAB CHEMISTRY METHOD 02/13/2025 10:12 AM [facility] Total Protein 5.9(L) 6.0 - 8.0 g/dL LAB CHEMISTRY METHOD 02/13/2025 10:12 AM [facility] Albumin 3.1(L) 3.2 - 5.0 g/dL LAB CHEMISTRY METHOD 02/13/2025 10:12 AM [facility] Total Bilirubin 0.4 0.0 - 1.4 mg/dL LAB CHEMISTRY METHOD 02/13/2025 10:12 AM [facility] Blood Venous blood specimen / Unknown Venipuncture / Unknown 02/13/2025 6:49 AM EDT 02/13/2025 8:56 AM EDT us Harris Gross MD LAB BLOOD ORDERABLES Final Resul t [facility] [address] [place] [address], * (ABNORMAL) Complete blood count (02/13/2025 6:49 AM EDT) WBC 3.3(L) 4.8 - 10.8 K/mcL LAB HEMETOLOGY METHOD 02/13/2025 9:07 AM [facility] RBC 2.90(L) 3.80 - 4.80 M/mcL LAB HEMETOLOGY METHOD 02/13/2025 9:07 AM [facility] Hemoglobin 8.4(L) 11.5 - 16.0 g/dL LAB HEMETOLOGY METHOD 02/13/2025 9:07 AM [facility] Hematocrit 27.2(L) 35.0 - 47.0 % LAB HEMETOLOGY METHOD 02/13/2025 9:07 AM [facility] MCV 94.8 79.0 - 98.0 FL LAB HEMETOLOGY METHOD 02/13/2025 9:07 AM [facility] MCH 29.3 27.0 - 32.0 pcg LAB HEMETOLOGY METHOD 02/13/2025 9:07 AM [facility] MCHC 30.9(L) 32.0 - 37.0 g/dL LAB HEMETOLOGY METHOD 02/13/2025 9:07 AM [facility] RDW 14.9 11.0 - 15.0 % LAB HEMETOLOGY METHOD 02/13/2025 9:07 AM [facility] Platelets 132 130 - 400 K/mcL LAB HEMETOLOGY METHOD 02/13/2025 9:07 AM [facility] MPV 11.8(H) 7.0 - 11.0 FL LAB HEMETOLOGY METHOD 02/13/2025 9:07 AM [facility] NRBC 0.0 <1.0 % LAB HEMETOLOGY METHOD 02/13/2025 9:07 AM [facility] NRBC Absolute 0.00 <0.10 K/mcL LAB HEMETOLOGY METHOD 02/13/2025 9:07 AM [facility] Blood Venous blood specimen / Unknown Venipuncture / Unknown 02/13/2025 6:49 AM EDT 02/13/2025 8:56 AM EDT Harris Gross MD LAB BLOOD ORDERABLES Final Resul t [facility] ([facility] [[email or web address] [address] [place] [address], documented in this encounter Visit Diagnoses Diagnosis Vitamin D deficiency, unspecified Gastrointestinal hemorrhage, unspecified Aphagia Anorexia documented in this encounter Care Teams [employer] Developer Relationship Specialty Start Date End Date Harris Gross MD [address] [place] [address] [address] [place] [address] PCP - General Geriatric Medicine 02/13/25 documented as of this encounter
== END 2025-03-12 14:12 | disposition home or self-care (01) ==
PROVIDERS: PCP Internal Medicine
DX: S52.501A Unspecified fracture of the lower end of right radius, initial encounter for closed fracture (principal)
CPT/HCPCS: 99213

== ENCOUNTER → 2025-03-12 13:31 | Outpatient (BNVA) | payer MEDICARE, OTHER, SELFPAY | PROVIDERS: PCP Internal Medicine | DX: S52.501D Unspecified fracture of the lower end of right radius, subsequent encounter for closed fracture with routine healing (principal) | CPT/HCPCS: 99212 ==

== ENCOUNTER 2025-03-14 10:16 | Outpatient (AMB) | payer MEDICARE, OTHER, SELFPAY ==
[2025-03-14 10:20] VITALS: BMI 27.8
--- NOTE | 2025-03-14 10:20 | A.OFFVIS_ITS ---
Vital Signs 03/14/25 10:20 Height 5 ft 6 in Weight 172 lb BMI 27.8 Intake Visit Reasons: left knee injection (80), last inj 07/25/24 Intake Note: Bella is a 82 year old female who presents today for a left knee injection, last injection 07/25/24. Patient reports her last injection gave her relief and would like to repeat. At this visit she confirmed that she had mild relief from the last injection but felt that it wore off, increased pain at night time. Allergies buspirone Allergy (Intermediate, Verified 03/14/25 10:25) Rash Sulfa (Sulfonamide Antibiotics) Allergy (Intermediate, Verified 03/14/25 10:25) RASH cefuroxime Allergy (Unknown, Verified 03/14/25 10:25) Unknown garlic (GARLIC) Allergy (Unknown, Verified 03/14/25 10:25) PER H&P metronidazole (From FLAGYL) Allergy (Unknown, Verified 03/14/25 10:25) OCULAR MIGRAINES penicillamine Allergy (Unknown, Verified 03/14/25 10:25) Unknown ciprofloxacin Adverse Reaction (Intermediate, Verified 03/14/25 10:25) neuropathic pain lisinopril Adverse Reaction (Intermediate, Verified 03/14/25 10:25) Cough nitrofurantoin Adverse Reaction (Mild, Verified 03/14/25 10:25) GI side effects cefuroxime Allergy (Intermediate, Uncoded 02/12/25 14:31) wheezy cough/itch flagyl Allergy (Unknown, Uncoded 02/12/25 14:31) Unknown From KEFLEX Allergy (Unknown, Uncoded 02/12/25 14:31) RASH Metoprolol Tartrate Allergy (Unknown, Uncoded 02/12/25 14:31) Unknown Sulfacet-R Allergy (Unknown, Uncoded 02/12/25 14:31) Unknown HPI HPI left knee injection (80), last inj 07/25/24: Details: Ms. Henley is an 84-year-old female who presents to the office today for left knee osteoarthritis with chronic pain. She receives cortisone injections as needed. Last cortisone injection was 07/25/2024. She had good relief with this and would like to repeat the injection while in the office today. [facility] Medical History (Reviewed 02/24/25 @ 13:15 by Ludivina June [facility]) Acute diverticulitis LLQ abdominal pain Contusion of right lower leg Otitis media Cough Bronchitis Pelvic pain Chronic cough Elevated IgE level Status post fall Annual wellness visit Hip pain Post-menopausal URI (upper respiratory infection) Sensation of pressure in bladder area Chest pain Elevated blood sugar Oral candidiasis GERD (gastroesophageal reflux disease) Pulmonary nodule HTN (hypertension) Heart palpitations Constipation Breast cancer screening Breast pain, left Elevated vitamin B12 level Neck muscle spasm Strain of neck muscle Low back pain Pubic ramus fracture Sore throat Skin tear of upper arm without complication Head injury, acute, without loss of consciousness Fall Dizziness Medication noncompliance due to cognitive impairment RLQ abdominal pain Sinusitis Flu syndrome Precordial chest pain Atypical chest pain Cold intolerance Former smoker Abnormal lung sounds Fever Bilateral calf pain Nausea Left lower quadrant abdominal pain Dysuria Fatigue Lower extremity weakness Aortic stenosis Obstipation Dark stools Lower abdominal pain Gastroenteritis Neck pain on right side Back pain Rhinitis Elevated BP without diagnosis of hypertension Non-rheumatic aortic stenosis Diverticulitis GERD (gastroesophageal reflux disease) Cat scratch Cat bite Epigastric discomfort Diarrhea Neuropathy Arthritis GERD (gastroesophageal reflux disease) HTN (hypertension) Irritable bowel Heart murmur Surgical History S/P AVR S/P TAVR (transcatheter aortic valve replacement) Hx of esophagogastroduodenoscopy Hx of colonoscopy History of tonsillectomy History of appendectomy Family History Father No problems noted. Mother No problems noted. Social History Household Members: Children Housing: House Are you a primary regular senior care provider to a significant other at home: No Do you presently have visiting nurse or other home services: No Alcohol intake: never Comment: Pt still ambulate on her own even though alarms are on Patient Tobacco Use Status: Former Tobacco user Tobacco use type: Cigarette Years Smoked: 55 e-Cigarette/Vaping Use: Never Used Second Hand Smoke Exposure: Yes Advance Directives Date on File: 03/28/23 service: No Current occupational status: retired Cognitive needs: No Hearing needs: No Vision needs: Yes (glasses) Review of Systems Const All systems reviewed & are unremarkable except as noted in HPI and below Physical Exam Vital Signs: BMI result Body Mass Index 27.8 Const General: cooperative, healthy appearing and no acute distress Resp Effort & Inspection: normal respiratory effort and able to speak in complete sentences Extrem Other: Right knee: Normal to inspection. No ecchymosis, erythema, or joint effusion. No tenderness to palpation along the medial or lateral joint lines. Full knee extension and flexion. Crepitus felt with ROM. NVI. Office Procedures AMB Joint Injection/Aspiration Joint Injection/Aspiration Primary Site: left knee Prep: site was prepped using aseptic technique, ethochloride spray was applied and injection warnings given Injected: 80 mg of, DepoMedrol, with 8 mL of (2% plain lidocaine) and in the joint Approach Used: anterolateral Procedure: The patient tolerated the procedure well, but had some pain with the injection and there was some relief with the local anesthesia Coding - Large joint Procedure code (CPT) selection complete Assessment & Plan Assessment & Plan (1) Osteoarthritis of left knee: Code(s): M17.12 - Unilateral primary osteoarthritis, left knee Category: Medical Plan The patient was offered a cortisone injection in the left knee with 80 mg of DepoMedrol. The patient was explained the risks, benefits, and alternatives to receiving this injection. After receiving consent for the injection, the patient had the procedure done while in the office today. The patient tolerated the procedure well with no complications. Follow-up will be PRN, or sooner if needed Coding Level of Care Code Est Pt Level 3 (27499) Diagnoses Osteoarthritis of left knee M17.12 CPT Codes Coding - Large joint: 50730 - Large joint ([id number])
--- OUTSIDE RECORDS SUMMARY | 2025-03-14 10:45 | XMS_ITS | Data Portability ---
Author Organization [facility], Telehealth Patient Home Address [address] [place] [phone] Assessment No assessment recorded. Plan of Treatment Reminders Order Date Submit Date Provider Last Modified By Organization Details Last Modified Time Details Appointments None recorded. Lab BMP, blood [address] [facility], [address] [place] [address], [place], [address], 9 07:42:19 lipid panel, blood [address] [facility], [address] [place] [address], [place], [address], 9 07:42:20 Referral None recorded. Procedures None recorded. Surgeries None recorded. Imaging None recorded. Medication Orders Cipro 500 mg tablet 2018 019 [id number], [address] [place], [place], [id number], 9 11:53:38 Zithromax Z-Rajesh 250 mg tablet 2018 019 [id number], [address] [place], [place], [id number], 9 11:53:23 metoprolol succinate ER 25 mg tablet,exte nded release [address] [id number], [address] [place], [place], [id number], 9 11:15:40 Patient Targets Encounter Date Encounter Id Patient Goals Patient Target Last Modified By Organization Details Last Modified Time 09/26/2018 [id number] Call therapist to schedule counseling mindyerlinda Not available 09/26/2018 11:54:07 Patient Instructions Encounter Date Encounter Id Patient Instructions Last Modified By Organization Details Last Modified Time 09/21/2018 [id number] Relaxation, reconsider escitalopram- will review at f/u next week to avoid dual med starting together marilynn Not available 09/21/2018 15:27:44 09/26/2018 [id number] pulse oximetry* marilynn Not available 09/26/2018 11:54:08 10/08/2018 [id number] Acute Sinusitis: Care Instructions marilynn Not available 10/08/2018 11:28:17 pulse oximetry* marilynn Not available 10/08/2018 11:28:17 12/04/2018 [id number] pulse oximetry* marilynn Not available 12/04/2018 12:22:51 Reason for Referral None Reported. Results Created Date Observation Date Name Description Value Unit Range Abnormal Flag Note LastModifiedBy Organization Detail LastModifiedTime 09/26/1909/26/2018 pulse oxime try* Result 96 Not Available [facility] [address] [place] [address], [phone], 09/26/2018 11:15:30 10/08/19 19 10/08/2018 pulse oxime try* Result 97 Not Available [facility] [address] [place] [address], [phone], 10/08/2018 11:18:00 12/05/19 19 12/04/2018 pulse oxime try* Result 97 Not Available [facility] [address] [place] [address], [phone], 12/04/2018 11:55:20 Result Notes None recorded. Problems Name Problem SNOMED Code Status Onset Date Resolution Date Notes Provider Name and Address Organization Details Recorded Time Abdominal aortic aneurysm 873423660 Active 2017 Samina Lama NP, S [address] [facility], [place], [address], [facility] 8 13:58:39 Diverticul itis 817194391 Active 2017 Tainaronnell Hanson [facility] 8 16:58:14 Chronic obstructiv e pulmonary disease 70331415 Active 2017 Tainaronnell Fongdonaldo [facility] 8 16:58:22 Aortic valve stenosis 09399912 Active 2017 Taina Margie [facility] 8 16:58:36 Anxiety 85985444 [facility] 16:58:45 Cystocele 601110071 Active 2017 [facility] 8 16:58:58 Problem Notes None recorded. Medical Equipment None Reported. Allergies Allergen ID Allergen Name Allergen Category Reaction Reaction Severity Criticality Documentation Date Start Date Code Code System Note Provider Name and Address Organization Details Recorded Time 1547 Substance with sulfonami de structure and antibacte rial mechanism of action (substanc e) medicatio n Not available Not available Not available 02/06/2018 86469 8003 SNOMED Tainaronnell Hanson [facility] 8 16:57:43 1548 Keflex medicatio n Not available Not available Not available 02/06/2018 7 RxNorm Tainaronnell Tarangoicki [facility] 8 16:57:55 2328 Flagyl medicatio n other moderate Not available 05/29/2018 6 RxNorm Tainaronnell Tarangoickdonaldo [facility] 8 11:44:55 2717 metoprolo l Not available chest pain Not available Not available 09/21/2018 6918 RxNorm Tainaronnell Hanson [facility] 9 16:31:23 Medications Name Sig Start [...] % 97 % 128/84 mm[Hg] Taina Sukhdeepmary [facility] 9 14:32:26 Date Recorded Body height Heart rate Oxygen saturation Oxygen saturation in Arterial blood by Pulse oximetry Systolic And Diastolic Provider Name and Address Organization Details Last Updated DateTime 9 168.91 cm 90 /min 96 % 96 % 124/80 mm[Hg] Eunice Molina [facility] 9 11:17:24 Date Recorded Heart rate Provider Name an d Address Organization Details Last Updated DateTime 10/08/2018 84 /min Samina Lama NP, [address] [place], [address], [facility] 10/08/2018 11:28:37 Date Recorded Body height Oxygen saturation Oxygen saturation in Arterial blood by Pulse oximetry Heart rate Body temperature Systolic And Diastolic Provider Name and Address Organization Details Last Updated DateTime 9 168.91 cm 97 % 97 % 112 /min 98.2 [degF] 142/86 mm[Hg] [facility] 9 11:17:37 Date Recorded Heart rate Provider Name an d Address Organization Details Last Updated DateTime 10/19/2018 80 /min Samina Lama NP, [address] [place], [address], [facility] 10/19/2018 12:04:58 Date Recorded Body height Heart rate Oxygen saturation Oxygen saturation in Arterial blood by Pulse oximetry Systolic And Diastolic Provider Name and Address Organization Details Last Updated DateTime 9 168.91 cm 105 /min 98 % 98 % 140/80 mm[Hg] Taina Hanson [facility] 9 11:45:01 Date Recorded Body height Body mass index (BMI) Body weight Oxygen saturation Oxygen saturation in Arterial blood by Pulse oximetry Heart rate Systolic And Diastolic Provider Name and Address Organization Details Last Updated DateTime 9 168.91 cm 31.1 kg/m2 02320.6 7 g 97 % 97 % 97 /min 120/90 mm[Hg] Dahiana Ha [facility] 9 11:56:24 Social History Question Answer Notes LastModified by Organizat ion Details LastModified Time Tobacco Smoking Status Former Smoker Not Available [employer] 07/07/2020 03:36:24 What Was The Date Of Your Most Recent Tobacco Screening? 12/04/2018 [id number] Information not available 07/07/2020 Sex: Unknown Functional [...] virus, quadrivalent, preservative 8 completed Eunice Molina [facility] 09/26/2018 11:16:26 Past Encounters Encounter ID Performer Location Encounter Start Date Encounter Closed Date Diagnosis/Indication Diagnosis SNOMED-CT Code Diagnosis ICD10 Code Diagnosis Note [id number] Deny Saleh DO [facility] [address] [facility],[place] [address] 02/07/2018 11:02:27 02/07/2018 16:46:02 Anxiety 88140092 F41.9 Nail changes 801327228 L 60.9 Abdominal aortic aneurysm 841742696 I71.4 CT 11/2017, no changes 2017, 2.85 cm Aortic david nosis, non-rheumatic 429654909 I35.0 stable Gastroesop hageal reflux disease 043489213 K21.9 d/c [place] mints, call if persists Insomnia 535478018 G47.0 0 review proper sleep hygiene be more active during day avoid naps [id number] Deny Saleh [facility] [address] [facility], [address] [facility] [place] [address] 03/16/2018 11:29:23 03/20/2018 08:12:01 Dehydration 27318828 E86.0 Gastroenteritis 88556360 K52.9 Aortic valve stenosis 60 643285 I35.0 stable, follow [id number] Deny Saleh [facility] [address] [facility], [place] [address] 05/16/2018 13:23:14 05/16/2018 14:06:44 Anxiety 99802972 F41.9 BID lorazepam helps Aortic valve stenosis 60 633234 I35.0 stable, echo 05/31/2017 Active or passive immunization 869743516 Z23 Abdominal aortic aneurysm 213759791 I71.4 CT 11/2017, no changes 2016, 2.85 cm Chronic ob structive pulmonary disease 45064105 J44.9 Non smoker X years, asymptomat ic Diverticular disease 397 263767 K57.90 no recent flare [id number] Deny Saleh [facility] [address] [facility],[place] [address] 05/29/2018 11:40:58 05/29/2018 16:52:51 Aortic valve stenosis 49561922 I35.0 stable, echo 05/31/2017 Anxiety 15755414 F41.9 BID lorazepam helps, discussed current fears re: Constipation 21778494 K5 9.00 [id number] Deny Saleh [facility] [address] [facility],[place] [address] 08/14/2018 11:20:27 08/14/2018 17:00:16 Anxiety 51165371 F41.9 BID lorazepam helps, discussed current fears Aortic valve stenosis 60 493661 I35.0 stable, echo 05/31/2017 Diverticulitis 789227509 K57.92 Increased frequency of urination 706009607 R35.0 [id number] Deny Saleh [facility] [address] [facility],[place] [address] 08/20/2018 11:12:33 08/20/2018 12:20:46 Anxiety 23071383 F41.9 BID alprazolam helps, discussed current fears Diverticulitis 768059293 K57.92 Aortic valve stenosis 60 960382 I35.0 stable, echo 05/31/2017 Family problems 62508563 4 Z63.79 Suggest therapy, names provided. Pt agrees [id number] Deny Saleh [facility] [address] [facility],[place] [address] 09/12/2018 10:19:31 09/12/2018 20:18:16 Abdominal aortic aneurysm 738798837 I71.4 CT 11/2017, no changes 2016, 2.85 cm Chronic ob structive pulmonary disease 07825594 J44.9 Non smoker X years, asymptomat ic Anxiety 00186175 F41.9 BID alprazolam helps, discussed current fears Aortic valve stenosis 60 258644 I35.0 stable, echo 05/31/2017 [id number] Deny Saleh [facility] [address] [facility],[place] [address] 09/21/2018 14:26:58 09/25/2018 11:17:00 Anxiety 48543470 F41.9 discussed current fears again, see below Aortic valve stenosis 60 360247 I35.0 [id number] Deny Saleh [facility] [address] [facility] [address] 09/26/2018 11:12:05 09/26/2018 13:02:53 Hypertensive disorder 78080270 I10 Chronic ob structive pulmonary disease 19599374 J44.9 Non smoker X years, asymptomat ic Anxiety 90713612 F41.9 discussed current fears again, see below Aortic valve stenosis 60 097003 I35.0 [place] [id number] Deny Saleh [facility] [address] [facility],[place] [address] 10/08/2018 11:12:38 10/08/2018 14:35:10 Cough 08708305 R05 Acute sinusitis 07389817 J01.90 Anxiety 77703461 F41.9 revisited [id number] Deny Meadows Nunudelfina [facility] [address] [facility],[place] [address] 10/19/2018 11:41:00 10/19/2018 12:37:34 Diverticulitis 465152150 K57.92 Intolerant Flagyl Anxiety 52970688 F41.9 revisited Aortic valve stenosis 60 179656 I35.0 asymptomat ic Abdominal aortic aneurysm 271924881 I71.4 CT 11/2017, no changes 2016, 2.85 cm Chronic ob structive pulmonary disease 26848547 J44.9 Non [place], [place] [id number] Deny Meadows Delfino [facility] [address] [facility],[place] [address] 12/04/2018 11:49:58 12/04/2018 16:03:42 Chronic obstructive pulmonary disease 47977311 J44.9 Non smoker X years, asymptomat ic Anxiety 66462548 F41.9 revisited Aortic valve stenosis 60 995356 I35.0 asymptomat ic Health Concerns Section Related Observation LastModified by Organization Detai ls LastModified Time None Recorded Concern Status LastModified by Organization Details LastModified Time None Recorded Advance Directives Directive None Recorded Payers Insurance Date Sequence Insurance Name Policy Number Policy Berry Covered Member ID Berry Member ID Guarantor Name 12/03/2018 2 [facility] INDEMNITY PLAN - [facility] [id number] Bella Henley [id number] Bella Henley 12/03/2018 1 MEDICARE B-ID: [facility] [employer] Bella Henley [id number] Bella Henley Notes Date Note Type Note Provider Name a nd Address Organization Details Recorded Time 09/21/2018 text/html Here with concer ns BP had panic attack this am, ambulance was called Checked BP after pts episode was 158/101 Did not start escitalopram prescribed last week , under a great deal of stress Samina Lama NP, [address] [place], [address], [facility] 09/21/2018 [...] complete ADL's Samina Lama NP, S [address] [place], [address], [facility] 09/26/2018 [...] family situation Samina Lama NP, S [address] [place], [address], [facility] 10/08/2018 11:49:45 10/19/2018 text/html Yesterday felt o k last night 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 this a.m. also increased voiding w/no dysuria no N/V/D/C, no BRBPR or hematuria Samina Lama NP, S [address] [facility], [place], [address], [facility] 10/19/2018 12:09:27 12/04/2018 text/html Very anxious re: husbands cognitive decline/getting worn out In therapy w/Peter Dopp Son also recent renal cancer, surgery went well.-but pt. gets worked up over everything pt recently started back on allergy shots some heartburn and post nasal drip Samina Lama NP, S [address] [facility], [place], [address], [facility] 12/04/2018 12:23:16 OBGyn Episode No OBEpisode recorded.
--- OUTSIDE RECORDS SUMMARY | 2025-03-14 10:45 | XMS_ITS | Encounter Summary ---
Author Organization [facility] Address [address] [place] [address] Care Team Providers Care Button Broacher Name Role Phone Harris Gross MD Primary Care Provider [phone] Encounter Details Date Type Department Care Team (Late st Contact Info) Description 02/13/2025 Lab Requisition [facility] - [facility] Lab [address] [facility] [place] [address] Harris Gross MD [address] [place], [place] [id number] Vitamin D deficiency, unspecified; Gastrointestinal hemorrhage, unspecified; [...] * Vitamin B12 (02/13/2025 6:49 AM EDT) [facility] Vitamin B-12 391 250 - 900 pcg/mL LAB CHEMISTRY METHOD 02/13/2025 10:12 AM EDT [facility] Blood Venous blood specimen / Unknown Venipuncture / Unknown 02/13/2025 6:49 AM EDT 02/13/2025 8:56 AM EDT us Harris Gross MD LAB BLOOD ORDERABLES Final Resul t Performing Organization Address [facility]/ZIP Co de Phone Number [facility] [address] [place] [address], [place] [phone] * Vitamin D 25 hydroxy (02/13/2025 6:49 AM EDT) [facility] Vit D, 25-Hydroxy 57.4 30.0 - 80.0 ng/mL LAB CHEMISTRY METHOD 02/13/2025 11:18 AM EDT [facility] Blood Venous blood specimen / Unknown Venipuncture / Unknown 02/13/2025 6:49 AM EDT 02/13/2025 8:56 AM EDT us Harris Gross MD LAB BLOOD ORDERABLES Final Resul t [facility] [address] [place] [address], [place] [phone] * Thyroid stimulating hormone (02/13/2025 6:49 AM EDT) [facility] TSH 1.12 0.40 - 4.00 mcIU/mL LAB CHEMISTRY METHOD 02/13/2025 11:19 AM EDT [facility] Blood Venous blood specimen / Unknown Venipuncture / Unknown 02/13/2025 6:49 AM EDT 02/13/2025 8:56 AM EDT Harris Gross MD LAB BLOOD ORDERABLES Final Resul t [facility] [address] [place] [address], [place] [phone] * (ABNORMAL) Comprehensive metabolic panel (02/13/2025 6:49 AM EDT) Sodium 140 133 - 145 mmol/L LAB CHEMISTRY METHOD 02/13/2025 10:12 AM [facility] Potassium 3.8 3.5 - 5.5 mmol/L LAB CHEMISTRY METHOD 02/13/2025 10:12 AM [facility] Chloride 105 96 - 110 mmol/L LAB CHEMISTRY METHOD 02/13/2025 10:12 AM [facility] CO2 29 21 - 32 mmol/L LAB CHEMISTRY METHOD 02/13/2025 10:12 AM [facility] Anion Gap 6 3 - 11 LAB CHEMISTRY METHOD 02/13/2025 10:12 AM [facility] Glucose 91 70 - 100 mg/dL LAB CHEMISTRY METHOD 02/13/2025 10:12 AM [facility] BUN 24 5 - 25 mg/dL LAB CHEMISTRY METHOD 02/13/2025 10:12 AM [facility] Creatinine 0.88 0.50 - 1.10 mg/dL LAB CHEMISTRY METHOD 02/13/2025 10:12 AM [facility] eGFR 65 >=60 mL/min/1. 73m2 LAB CHEMISTRY METHOD 02/13/2025 10:12 AM [facility] Comment:Calculation based on the Chronic Kidney Disease Epidemiology Collaboration (CKD-EPI) equation refit without adjustment for race. BUN/Creatinine Ratio 27.3 LAB CHEMISTRY METHOD 02/13/2025 10:12 AM [facility] Calcium 9.2 8.5 - 10.5 mg/dL LAB CHEMISTRY METHOD 02/13/2025 10:12 AM [facility] AST (SGOT) 14 10 - 42 unit/L LAB CHEMISTRY METHOD 02/13/2025 10:12 AM [facility] ALT (SGPT) 14 10 - 60 unit/L LAB CHEMISTRY METHOD 02/13/2025 10:12 AM [facility] Alkaline Phosphatase 88 42 - 121 unit/L LAB CHEMISTRY METHOD 02/13/2025 10:12 AM [facility] Total Protein 5.9(L) 6.0 - 8.0 g/dL LAB CHEMISTRY METHOD 02/13/2025 10:12 AM [facility] Albumin 3.1(L) 3.2 - 5.0 g/dL LAB CHEMISTRY METHOD 02/13/2025 10:12 AM [facility] Total Bilirubin 0.4 0.0 - 1.4 mg/dL LAB CHEMISTRY METHOD 02/13/2025 10:12 AM [facility] Blood Venous blood specimen / Unknown Venipuncture / Unknown 02/13/2025 6:49 AM EDT 02/13/2025 8:56 AM EDT us Harris Gross MD LAB BLOOD ORDERABLES Final Resul t [facility] [address] [place] [address], * (ABNORMAL) Complete blood count (02/13/2025 6:49 AM EDT) WBC 3.3(L) 4.8 - 10.8 K/mcL LAB HEMETOLOGY METHOD 02/13/2025 9:07 AM [facility] RBC 2.90(L) 3.80 - 4.80 M/mcL LAB HEMETOLOGY METHOD 02/13/2025 9:07 AM [facility] Hemoglobin 8.4(L) 11.5 - 16.0 g/dL LAB HEMETOLOGY METHOD 02/13/2025 9:07 AM [facility] Hematocrit 27.2(L) 35.0 - 47.0 % LAB HEMETOLOGY METHOD 02/13/2025 9:07 AM [facility] MCV 94.8 79.0 - 98.0 FL LAB HEMETOLOGY METHOD 02/13/2025 9:07 AM [facility] MCH 29.3 27.0 - 32.0 pcg LAB HEMETOLOGY METHOD 02/13/2025 9:07 AM [facility] MCHC 30.9(L) 32.0 - 37.0 g/dL LAB HEMETOLOGY METHOD 02/13/2025 9:07 AM [facility] RDW 14.9 11.0 - 15.0 % LAB HEMETOLOGY METHOD 02/13/2025 9:07 AM [facility] Platelets 132 130 - 400 K/mcL LAB HEMETOLOGY METHOD 02/13/2025 9:07 AM [facility] MPV 11.8(H) 7.0 - 11.0 FL LAB HEMETOLOGY METHOD 02/13/2025 9:07 AM [facility] NRBC 0.0 <1.0 % LAB HEMETOLOGY METHOD 02/13/2025 9:07 AM [facility] NRBC Absolute 0.00 <0.10 K/mcL LAB HEMETOLOGY METHOD 02/13/2025 9:07 AM [facility] Blood Venous blood specimen / Unknown Venipuncture / Unknown 02/13/2025 6:49 AM EDT 02/13/2025 8:56 AM EDT Harris Gross MD LAB BLOOD ORDERABLES Final Resul t [facility] [address] [place] [address], documented in this encounter Visit Diagnoses Diagnosis Vitamin D deficiency, unspecified Gastrointestinal hemorrhage, unspecified Aphagia Anorexia documented in this encounter Care Teams Button Broacher Relationship Specialty Start Date End Date Harris Gross MD [address] [place] [address] [address] [place] [address] PCP - General Geriatric Medicine 02/13/25 documented as of this encounter
== END 2025-03-14 10:37 | disposition home or self-care (01) ==
LOC: HO.HOS 10:17
PROVIDERS: PCP Internal Medicine; Visit Provider Physician Assistant
DX: M17.12 Unilateral primary osteoarthritis, left knee (principal)
CPT/HCPCS: 20610; 99213

== ENCOUNTER → 2025-03-14 10:16 | Outpatient (BNVA) | payer MEDICARE, OTHER, SELFPAY | PROVIDERS: PCP Internal Medicine; Visit Provider Physician Assistant | DX: M17.12 Unilateral primary osteoarthritis, left knee (principal) | CPT/HCPCS: 20610; 99212; J1010; J2003 ==

== ENCOUNTER 2025-03-21 09:33 | Outpatient (AMB) | payer MEDICARE, OTHER, SELFPAY ==
--- OUTSIDE RECORDS SUMMARY | 2025-03-21 09:39 | XMS_ITS | Encounter Summary ---
Author Organization [facility] Address [address] [place] [address] Phone Care Team Providers Care Carpentry Supervisor Name Role Phone Norm Bates Unavailable [phone] Verónica Nielson MD Unavailable [phone] Bandar Renteria MD Unavailable [phone] Luis Milner CNP Unavailable [phone] Martha Estrada MD Unavailable [phone] David Walton MD Unavailable [phone] Deny Saleh DO Primary Care Provider [phone] Bandar Renteria MD Primary Care Provider Nick Gomez Primary Care Provider + Encounter Details Date Type Department Care Team (Late st Contact Info) Description 12/14/2020 Transcribe Orders [facility] Laboratory [address] [place] [address] Deny Saleh DO [address] [place], [place] [id number] Social History Tobacco Use Types Packs/Day Years Used Date Smoking Tobacco: Former Cigarettes Q uit: 2013 Smokeless Tobacco: Never Comments Unknown Sex and Gender Information Value Date Recorded Sex Assigned at Not on file Legal Sex Female 10:12 PM EDT Gender Identity Not on file Sexual Orientation Not on file documented as of this encounter Plan of Treatment Not on file documented as of this encounter Visit Diagnoses Not on filedocumented in this encounter Care Teams Carpentry Supervisor Relationship Specialty Start Date End Date Nunudelfina Deny SawyerDO [address] [place] [address] [email or web address] PCP - General Internal Medicine 08/09/17 01/09/21 Bandar Renteria MD [address] [place] [address] [address] PCP - General Internal Medicine 01/10/21 05/13/23 Nick Gomez PA [address] [place] [address] PCP - General Physician Director Food And Beverage 05/14/23 Norm Bates PA [address] [place] [address] Historical LMR Provider 06/22/17 2 Verónica Nielson MD [address] [address] [email or web address] Historical LMR Provider 06/22/17 Bandar Renteria MD [address] [place] [address] [address] Historical LMR Provider 06/22/17 2 Luis Milner CNP [address] [place] [address] Historical LMR Provider 06/22/17 09/11/21 Martha Estrada MD 4 [facility], [facility] [place] [address] [email or web address] Historical LMR Provider 06/22/17 David Walton MD [address] [place] [address] Historical LMR Provider 06/22/17 2 documented as of this encounter Additional Source Comments The information contained in this document represents components of the legal health record. It is not the complete legal health record.[facility]
--- OUTSIDE RECORDS SUMMARY | 2025-03-21 09:39 | XMS_ITS | Data Portability ---
Author Organization [facility] Internal Medicine, Telehealth Patient Home Address [address] [place] [phone] Assessment No assessment recorded. Plan of Treatment Reminders Order Date Submit Date Provider Last Modified By Organization Details Last Modified Time Details Appointments None recorded. Lab BMP, blood [address] Internal Medicine, [address] [place] [address], [place], [address], 9 07:42:19 lipid panel, blood [address] Internal Medicine, [address] [place] [address], [place], [address], 9 07:42:20 Referral None recorded. Procedures None recorded. Surgeries None recorded. Imaging None recorded. Medication Orders Cipro 500 mg tablet 2018 019 [id number], [address], [place], [phone], 9 11:53:38 Zithromax Z-Rajesh 250 mg tablet 2018 019 [id number], [address], [place], [phone], 9 11:53:23 metoprolol succinate ER 25 mg tablet,exte nded release 24 hr 2018 019 [id number], [address], [place], [id number], 9 11:15:40 Patient Targets Encounter Date Encounter Id Patient Goals Patient Target Last Modified By Organization Details Last Modified Time 09/26/2018 [id number] Call therapist to schedule counseling mindyerlinda Not available 09/26/2018 11:54:07 Patient Instructions Encounter Date Encounter Id Patient Instructions Last Modified By Organization Details Last Modified Time 09/21/2018 [id number] Relaxation, reconsider escitalopram- will review at f/u next week to avoid dual med starting together marilynn Not available 09/21/2018 15:27:44 09/26/2018 [id number] pulse oximetry* marilynn Not available 09/26/2018 11:54:08 10/08/2018 [id number] Acute Sinusitis: Care Instructions marilynn Not available 10/08/2018 11:28:17 pulse oximetry* marilynn Not available 10/08/2018 11:28:17 12/04/2018 [id number] pulse oximetry* marilynn Not available 12/04/2018 12:22:51 Reason for Referral None Reported. Results Created Date Observation Date Name Description Value Unit Range Abnormal Flag Note LastModifiedBy Organization Detail LastModifiedTime 09/26/1909/26/2018 pulse oxime try* Result 96 Not Available [facility] [address] [place] [address], [address], 09/26/2018 11:15:30 10/08/19 19 10/08/2018 pulse oxime try* Result 97 Not Available [facility] [address] [place] [address], [phone], 10/08/2018 11:18:00 12/05/19 19 12/04/2018 pulse oxime try* Result 97 Not Available [facility] [address] [place] [address], [address], 12/04/2018 11:55:20 Result Notes None recorded. Problems Name Problem SNOMED Code Status Onset Date Resolution Date Notes Provider Name and Address Organization Details Recorded Time Diverticul itis 971658635 Active 2017 Taina Hanson [facility] 8 16:58:14 Chronic obstructiv e pulmonary disease 44528473 Active 2017 Tainaronnell Hanson [facility] 8 16:58:22 Aortic valve stenosis 59961248 Active 2017 Tainaronnell Hanson [facility] 8 16:58:36 Anxiety 92747351 Active 2017 Tainaronnell Hanson [facility] 8 16:58:45 Cystocele 694901540 Active 2017 Tainaronnell Hanson [facility] 8 16:58:58 Abdominal aortic aneurysm 358156400 Active 2017 Samina Lama NP, [address] [place], [address], [facility] 8 13:58:39 Problem Notes None recorded. Medical Equipment None Reported. Allergies Allergen ID Allergen Name Allergen Category Reaction Reaction Severity Criticality Documentation Date Start Date Code Code System Note Provider Name and Address Organization Details Recorded Time 1547 Substance with sulfonami de structure and antibacte rial mechanism of action (substanc e) medicatio n Not available Not available Not available 02/06/2018 78979 8003 SNOMED Tainaronnell Hanson [facility] 8 16:57:43 1548 Keflex medicatio n Not available Not available Not available 02/06/2018 7 RxNorm Taina Tarangoicki [facility] 8 16:57:55 2328 Flagyl medicatio n other moderate Not available 05/29/2018 6 RxNorm [facility] 8 11:44:55 2717 metoprolo l Not available chest pain Not available Not available 09/21/2018 6918 RxNorm Tainaronnell Tarangoickdonaldo [facility] 9 16:31:23 Medications Name Sig [...] % 97 % 128/84 mm[Hg] Taina Sukhdeepmary [facility] 9 14:32:26 Date Recorded Body height Heart rate Oxygen saturation Oxygen saturation in Arterial blood by Pulse oximetry Systolic And Diastolic Provider Name and Address Organization Details Last Updated DateTime 9 168.91 cm 90 /min 96 % 96 % 124/80 mm[Hg] Eunice Molina [facility] 9 11:17:24 Date Recorded Heart rate Provider Name an d Address Organization Details Last Updated DateTime 10/08/2018 84 /min Samina Lama NP, [address] [place], [address], [facility] 10/08/2018 11:28:37 Date Recorded Body height Oxygen saturation Oxygen saturation in Arterial blood by Pulse oximetry Heart rate Body temperature Systolic And Diastolic Provider Name and Address Organization Details Last Updated DateTime 9 168.91 cm 97 % 97 % 112 /min 98.2 [degF] 142/86 mm[Hg] [facility] 9 11:17:37 Date Recorded Heart rate Provider Name an d Address Organization Details Last Updated DateTime 10/19/2018 80 /min Samina Lama NP, [address] [place], [address], [facility] 10/19/2018 12:04:58 Date Recorded Body height Heart rate Oxygen saturation Oxygen saturation in Arterial blood by Pulse oximetry Systolic And Diastolic Provider Name and Address Organization Details Last Updated DateTime 9 168.91 cm 105 /min 98 % 98 % 140/80 mm[Hg] Taina Hanson [facility] 9 11:45:01 Date Recorded Body height Body mass index (BMI) Body weight Oxygen saturation Oxygen saturation in Arterial blood by Pulse oximetry Heart rate Systolic And Diastolic Provider Name and Address Organization Details Last Updated DateTime 9 168.91 cm 31.1 kg/m2 71289.6 7 g 97 % 97 % 97 /min 120/90 mm[Hg] Dahiana Ha [facility] Internal [facility] 9 11:56:24 Social History Question Answer Notes LastModified by Organizat ion Details LastModified Time Tobacco Smoking Status Former Smoker Not Available [employer] 07/07/2020 03:36:24 What Was The Date Of Your Most Recent Tobacco Screening? 12/04/2018 [id number] Information not available 07/07/2020 Sex: Unknown Functional [...] virus, quadrivalent, preservative 8 completed Eunice Molina [facility] 09/26/2018 11:16:26 Past Encounters Encounter ID Performer Location Encounter Start Date Encounter Closed Date Diagnosis/Indication Diagnosis SNOMED-CT Code Diagnosis ICD10 Code Diagnosis Note [id number] Deny Saleh DO [place] [facility] [address] [facility],[place] [address] 02/07/2018 11:02:27 02/07/2018 16:46:02 Anxiety 31635856 F41.9 Nail changes 780440138 L 60.9 Abdominal aortic aneurysm 247123197 I71.4 CT 11/2017, no changes 2017, 2.85 cm Aortic david nosis, non-rheumatic 165720721 I35.0 stable Gastroesop hageal reflux disease 146267420 K21.9 d/c mallie mints, call if persists Insomnia 862842082 G47.0 0 review proper sleep hygiene be more active during day avoid naps [id number] Deny Saleh [facility] [address] [facility], [place] [facility] [place] [address] 03/16/2018 11:29:23 03/20/2018 08:12:01 Dehydration 84587486 E86.0 Gastroenteritis 40178503 K52.9 Aortic valve stenosis 60 814618 I35.0 stable, follow [id number] Deny Saleh [facility] [address] [facility], [place] [address] 05/16/2018 13:23:14 05/16/2018 14:06:44 Anxiety 50794090 F41.9 BID lorazepam helps Aortic valve stenosis 60 901519 I35.0 stable, echo 05/31/2017 Active or passive immunization 336806665 Z23 Abdominal aortic aneurysm 175060045 I71.4 CT 11/2017, no changes 2016, 2.85 cm Chronic ob structive pulmonary disease 74269149 J44.9 Non smoker X years, asymptomat ic Diverticular disease 397 585317 K57.90 no recent flare [id number] Deny Saleh [facility] [address] [facility] [address] 05/29/2018 11:40:58 05/29/2018 16:52:51 Aortic valve stenosis 69470296 I35.0 stable, echo 05/31/2017 Anxiety 36112230 F41.9 BID lorazepam helps, discussed current fears re: Constipation 59614452 K5 9.00 [id number] Deny Saleh [facility] [address] [facility],[place] [address] 08/14/2018 11:20:27 08/14/2018 17:00:16 Anxiety 72539102 F41.9 BID lorazepam helps, discussed current fears Aortic valve stenosis 60 255343 I35.0 stable, echo 05/31/2017 Diverticulitis 345560021 K57.92 Increased frequency of urination 632628804 R35.0 [id number] Deny Saleh [facility] [address] [facility],[place] [address] 08/20/2018 11:12:33 08/20/2018 12:20:46 Anxiety 44176438 F41.9 BID alprazolam helps, discussed current fears Diverticulitis 931510978 K57.92 Aortic valve stenosis 60 472880 I35.0 stable, echo 05/31/2017 Family problems 67750996 4 Z63.79 Suggest therapy, names provided. Pt agrees [id number] Deny Saleh [facility] [address] [facility],[place] [address] 09/12/2018 10:19:31 09/12/2018 20:18:16 Abdominal aortic aneurysm 633286696 I71.4 CT 11/2017, no changes 2016, 2.85 cm Chronic ob structive pulmonary disease 09788136 J44.9 Non smoker X years, asymptomat ic Anxiety 85880566 F41.9 BID alprazolam helps, discussed current fears Aortic valve stenosis 60 672006 I35.0 stable, echo 05/31/2017 [id number] Deny Saleh [facility] [address] [facility],[place] [address] 09/21/2018 14:26:58 09/25/2018 11:17:00 Anxiety 74165334 F41.9 discussed current fears again, see below Aortic valve stenosis 60 206970 I35.0 [id number] Deny Saleh [facility] [address] [facility] [address],[place] [address] 09/26/2018 11:12:05 09/26/2018 13:02:53 Hypertensive disorder 53022356 I10 Chronic ob structive pulmonary disease 60915197 J44.9 Non smoker X years, asymptomat ic Anxiety 13876275 F41.9 discussed current fears again, see below Aortic valve stenosis 60 661733 [place] [id number] Deny Saleh [facility] Medicine [address] [facility] [address],[place] [address] 10/08/2018 11:12:38 10/08/2018 14:35:10 Cough 77016849 R05 Acute sinusitis 14060789 J01.90 Anxiety 12821471 F41.9 revisited [id number] Deny Meadows Nunudelfina [facility] [address] [facility],[place] [address] 10/19/2018 11:41:00 10/19/2018 12:37:34 Diverticulitis 692153391 K57.92 Intolerant Flagyl Anxiety 77567576 F41.9 revisited Aortic valve stenosis 60 128095 I35.0 asymptomat ic Abdominal aortic aneurysm 389219856 I71.4 CT 11/2017, no changes 2016, 2.85 cm Chronic ob structive pulmonary disease 45991939 J44.9 Non smoker [place], [place] [id number] Deny Meadows Delfino [facility] [address] [facility],[place] [address] 12/04/2018 11:49:58 12/04/2018 16:03:42 Chronic obstructive pulmonary disease 85401197 J44.9 Non smoker X years, asymptomat ic Anxiety 74095044 F41.9 revisited Aortic valve stenosis 60 617135 I35.0 asymptomat ic Health Concerns Section Related Observation LastModified by Organization Detai ls LastModified Time None Recorded Concern Status LastModified by Organization Details LastModified Time None Recorded Advance Directives Directive None Recorded Payers Insurance Date Sequence Insurance Name Policy Number Policy Berry Covered Member ID Berry Member ID Guarantor Name 12/03/2018 2 [facility] IN[facility]MN[facility] - [facility] [id number] Bella Henley [id number] Bella Henley 12/03/2018 1 MEDICARE B-IN: [facility] [employer] Bella Henley [id number] Bella Henley Notes Date Note Type Note Provider Name a nd Address Organization Details Recorded Time 09/21/2018 text/html Here with concer ns BP had panic attack this am, ambulance was called Checked BP after pts episode was 158/101 Did not start escitalopram prescribed last week , under a great deal of stress Samina Lama NP, [address] [place], [address], [facility] 09/21/2018 15:27:56 09/26/2018 text/html [...] complete ADL's Samina Lama NP, [address] [place], [address], [facility] 09/26/2018 11:54:50 10/08/2018 text/html [...] family situation Samina Lama NP, [address] [place], [address], [facility] 10/08/2018 11:49:45 10/19/2018 text/html Yesterday felt o k last night 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 this a.m. also increased voiding w/no dysuria no N/V/D/C, no BRBPR or hematuria Samina Lama NP, S [address] [facility], [place], [address], [facility] 10/19/2018 12:09:27 12/04/2018 text/html Very anxious re: husbands cognitive decline/getting worn out In therapy w/Peter Dopp Son also recent renal cancer, surgery went well.-but pt. gets worked up over everything pt recently started back on allergy shots some heartburn and post nasal drip Samina Lama NP, S [address] [facility], [place], [address], [facility] 12/04/2018 12:23:16 OBGyn Episode No OBEpisode recorded.
--- OUTSIDE RECORDS SUMMARY | 2025-03-21 09:39 | XMS_ITS | Encounter Summary ---
Author Organization [facility] Address [address] [place] [address] Care Team Providers Care Manager Quality Compliance Name Role Phone Harris Gross MD Primary Care Provider [phone] Encounter Details Date Type Department Care Team (Late st Contact Info) Description 02/13/[address] [facility] Lab [address] [facility] [place] [address] Harris Gross MD [address] [place], [place] [id number] Vitamin D deficiency, unspecified; Gastrointestinal hemorrhage, unspecified; [...] * Vitamin B12 (02/13/2025 6:49 AM EDT) [facility] Vitamin B-12 391 250 - 900 pcg/mL LAB CHEMISTRY METHOD 02/13/2025 10:12 AM EDT [facility] Blood Venous blood specimen / Unknown Venipuncture / Unknown 02/13/2025 6:49 AM EDT 02/13/2025 8:56 AM EDT us Harris Gross MD LAB BLOOD ORDERABLES Final Resul t Performing Organization Address [facility]/ZIP Co de Phone Number [facility] [address] [place] [address], [place] [phone] * Vitamin D 25 hydroxy (02/13/2025 6:49 AM EDT) [facility] Vit D, 25-Hydroxy 57.4 30.0 - 80.0 ng/mL LAB CHEMISTRY METHOD 02/13/2025 11:18 AM EDT [facility] Blood Venous blood specimen / Unknown Venipuncture / Unknown 02/13/2025 6:49 AM EDT 02/13/2025 8:56 AM EDT us Harris Gross MD LAB BLOOD ORDERABLES Final Resul t [facility] [address] [place] [address], [place] [phone] * Thyroid stimulating hormone (02/13/2025 6:49 AM EDT) [facility] TSH 1.12 0.40 - 4.00 mcIU/mL LAB CHEMISTRY METHOD 02/13/2025 11:19 AM EDT [facility] Blood Venous blood specimen / Unknown Venipuncture / Unknown 02/13/2025 6:49 AM EDT 02/13/2025 8:56 AM EDT Harrsi Gross MD LAB BLOOD ORDERABLES Final Resul t [facility] [address] [place] [address], [place] [phone] * (ABNORMAL) Comprehensive metabolic panel (02/13/2025 6:49 AM EDT) Sodium 140 133 - 145 mmol/L LAB CHEMISTRY METHOD 02/13/2025 10:12 AM [facility] Potassium 3.8 3.5 - 5.5 mmol/L LAB CHEMISTRY METHOD 02/13/2025 10:12 AM [facility] Chloride 105 96 - 110 mmol/L LAB CHEMISTRY METHOD 02/13/2025 10:12 AM [facility] CO2 29 21 - 32 mmol/L LAB CHEMISTRY METHOD 02/13/2025 10:12 AM [facility] Anion Gap 6 3 - 11 LAB CHEMISTRY METHOD 02/13/2025 10:12 AM [facility] Glucose 91 70 - 100 mg/dL LAB CHEMISTRY METHOD 02/13/2025 10:12 AM [facility] BUN 24 5 - 25 mg/dL LAB CHEMISTRY METHOD 02/13/2025 10:12 AM [facility] Creatinine 0.88 0.50 - 1.10 mg/dL LAB CHEMISTRY METHOD 02/13/2025 10:12 AM [facility] eGFR 65 >=60 mL/min/1. 73m2 LAB CHEMISTRY METHOD 02/13/2025 10:12 AM [facility] Comment:Calculation based on the Chronic Kidney Disease Epidemiology Collaboration (CKD-EPI) equation refit without adjustment for race. BUN/Creatinine Ratio 27.3 LAB CHEMISTRY METHOD 02/13/2025 10:12 AM [facility] Calcium 9.2 8.5 - 10.5 mg/dL LAB CHEMISTRY METHOD 02/13/2025 10:12 AM [facility] AST (SGOT) 14 10 - 42 unit/L LAB CHEMISTRY METHOD 02/13/2025 10:12 AM [facility] ALT (SGPT) 14 10 - 60 unit/L LAB CHEMISTRY METHOD 02/13/2025 10:12 AM [facility] Alkaline Phosphatase 88 42 - 121 unit/L LAB CHEMISTRY METHOD 02/13/2025 10:12 AM [facility] Total Protein 5.9(L) 6.0 - 8.0 g/dL LAB CHEMISTRY METHOD 02/13/2025 10:12 AM [facility] Albumin 3.1(L) 3.2 - 5.0 g/dL LAB CHEMISTRY METHOD 02/13/2025 10:12 AM [facility] Total Bilirubin 0.4 0.0 - 1.4 mg/dL LAB CHEMISTRY METHOD 02/13/2025 10:12 AM [facility] Blood Venous blood specimen / Unknown Venipuncture / Unknown 02/13/2025 6:49 AM EDT 02/13/2025 8:56 AM EDT us Harris Gross MD LAB BLOOD ORDERABLES Final Resul t [facility] [address] [place] [address], * (ABNORMAL) Complete blood count (02/13/2025 6:49 AM EDT) WBC 3.3(L) 4.8 - 10.8 K/mcL LAB HEMETOLOGY METHOD 02/13/2025 9:07 AM [facility] RBC 2.90(L) 3.80 - 4.80 M/mcL LAB HEMETOLOGY METHOD 02/13/2025 9:07 AM [facility] Hemoglobin 8.4(L) 11.5 - 16.0 g/dL LAB HEMETOLOGY METHOD 02/13/2025 9:07 AM [facility] Hematocrit 27.2(L) 35.0 - 47.0 % LAB HEMETOLOGY METHOD 02/13/2025 9:07 AM [facility] MCV 94.8 79.0 - 98.0 FL LAB HEMETOLOGY METHOD 02/13/2025 9:07 AM [facility] MCH 29.3 27.0 - 32.0 pcg LAB HEMETOLOGY METHOD 02/13/2025 9:07 AM [facility] MCHC 30.9(L) 32.0 - 37.0 g/dL LAB HEMETOLOGY METHOD 02/13/2025 9:07 AM [facility] RDW 14.9 11.0 - 15.0 % LAB HEMETOLOGY METHOD 02/13/2025 9:07 AM [facility] Platelets 132 130 - 400 K/mcL LAB HEMETOLOGY METHOD 02/13/2025 9:07 AM [facility] MPV 11.8(H) 7.0 - 11.0 FL LAB HEMETOLOGY METHOD 02/13/2025 9:07 AM [facility] NRBC 0.0 <1.0 % LAB HEMETOLOGY METHOD 02/13/2025 9:07 AM [facility] NRBC Absolute 0.00 <0.10 K/mcL LAB HEMETOLOGY METHOD 02/13/2025 9:07 AM [facility] Blood Venous blood specimen / Unknown Venipuncture / Unknown 02/13/2025 6:49 AM EDT 02/13/2025 8:56 AM EDT Harris Gross MD LAB BLOOD ORDERABLES Final Resul t [facility] [address] [place] [address], documented in this encounter Visit Diagnoses Diagnosis Vitamin D deficiency, unspecified Gastrointestinal hemorrhage, unspecified Aphagia Anorexia documented in this encounter Care Teams Manager Quality Compliance Relationship Specialty Start Date End Date Harris Gross MD [address] [place] [address] [address] [place] [address] PCP - General Geriatric Medicine 02/13/25 documented as of this encounter
--- NOTE | 2025-03-21 09:53 | A.OFFPC_ITS ---
Vital Signs 03/21/25 09:56 03/21/25 09:58 Height 5 ft 6 in 5 ft 6 in Weight 156 lb 8 oz BMI 25.3 BP 148/58 H Blood Pressure Location Lt brachial Lt brachial Position Sitting Sitting Pulse Source Pulse Oximeter Temp Source Temporal Artery Scan Oxygen Delivery Method Room Air Intake Visit Reasons: [facility] 03/20 Intake Note: Patient is here for hospital discharge follow up. Patient was discharged from [facility] on 03/20/25. Machine Carton Marker Required: No Water Service Supervisor: Not Required per policy Accompanied by: Self / Same As Patient Allergies buspirone Allergy (Intermediate, Verified 03/21/25 10:01) Rash Sulfa (Sulfonamide Antibiotics) Allergy (Intermediate, Verified 03/21/25 10:01) RASH cefuroxime Allergy (Unknown, Verified 03/21/25 10:01) Unknown garlic (GARLIC) Allergy (Unknown, Verified 03/21/25 10:01) PER H&P metronidazole (From FLAGYL) Allergy (Unknown, Verified 03/21/25 10:01) OCULAR MIGRAINES penicillamine Allergy (Unknown, Verified 03/21/25 10:01) Unknown ciprofloxacin Adverse Reaction (Intermediate, Verified 03/21/25 10:01) neuropathic pain lisinopril Adverse Reaction (Intermediate, Verified 03/21/25 10:01) Cough nitrofurantoin Adverse Reaction (Mild, Verified 03/21/25 10:01) GI side effects cefuroxime Allergy (Intermediate, Uncoded 03/21/25 09:59) wheezy cough/itch flagyl Allergy (Unknown, Uncoded 03/21/25 09:59) Unknown From KEFLEX Allergy (Unknown, Uncoded 03/21/25 09:59) RASH Metoprolol Tartrate Allergy (Unknown, Uncoded 03/21/25 09:59) Unknown Sulfacet-R Allergy (Unknown, Uncoded 03/21/25 09:59) Unknown Medication List - Last Reviewed 03/21/25 by Yanely Sarah MA acetaminophen 325 mg PO Q4H PRN albuterol sulfate 90 mcg/actuation 2 puffs inhalation Q4-6H PRN alprazolam 0.25 mg PO DAILY cholecalciferol (vitamin D3) (Vitamin D3) 50 mcg PO DAILY citalopram 10 mg PO DAILY citalopram (Celexa) 20 mg PO BEDTIME clopidogrel 75 mg PO DAILY fluticasone propion-salmeterol 115-21 mcg/actuation (Advair HFA) 2 puffs inhalation BID fluticasone propionate 50 mcg/actuation 1 spray intranasal DAILY 30 days losartan 25 mg PO DAILY mirabegron ER (Myrbetriq) 25 mg PO DAILY 90 days pantoprazole (Protonix) 40 mg PO DAILY@0630 polyethylene glycol 3350 (Miralax) 17 grams PO DAILY PRN Tobacco use date assessed: 03/21/25 Fall risk assessment: No Falls in past year Last assessed Fall Risk: 03/21/25 Dental Screening Dental Screen Date: 03/21/25 Did you have a dental visit in the last 12 months?: No Did you have a dental problem in the last 6 months where you did not have access to dental care?: No Was dental information given to patient?: No HPI [facility] 03/20 HPI Details 84-year-old female with past medical his tory significant for hypertension, aortic valve replacement, severe generalized anxiety disorder, anemia last seen 02/2025 coming in for discharge follow up. In review of the notes, patient was seen by Cardiology 02/2025 stable at this time follow up in a few months. She did have a fall sustaining a wrist fracture and has been following with Orthopedics as well. Presenting with anxiety, dizziness, and neuropathy symptoms. Gastrointestinal bleeding was identified approximately six weeks ago, leading to a four-day hospital stay for testing and management. The patient has been experiencing vertigo, which was confirmed by testing at [facility] however has not had recurrence of symptoms. Neuropathy symptoms, including numbness and tingling in the feet and hands, have been present intermittently for years, with a history of neuropathy in the feet about ten years ago. Anxiety has been a significant issue, exacerbated by recent medication changes and environmental transitions. Dizziness has been noted since starting Remeron, with the patient experiencing episodes of dizziness, particularly in the mornings. She also mentions having numbness in the right foot that did cause a tripping incident while at [facility] and did have mild numbness this morning that resolved spontaneously. FOR[facility]LY [facility], [facility] Medical History Acute diverticulitis LLQ abdominal pain Contusion of right lower leg Otitis media Cough Bronchitis Pelvic pain Chronic cough Elevated IgE level Status post fall Annual wellness visit Hip pain Post-menopausal URI (upper respiratory infection) Sensation of pressure in bladder area Chest pain Elevated blood sugar Oral candidiasis GERD (gastroesophageal reflux disease) Pulmonary nodule HTN (hypertension) Heart palpitations Constipation Breast cancer screening Breast pain, left Elevated vitamin B12 level Neck muscle spasm Strain of neck muscle Low back pain Pubic ramus fracture Sore throat Skin tear of upper arm without complication Head injury, acute, without loss of consciousness Fall Dizziness Medication noncompliance due to cognitive impairment RLQ abdominal pain Sinusitis Flu syndrome Precordial chest pain Atypical chest pain Cold intolerance Former smoker Abnormal lung sounds Fever Bilateral calf pain Nausea Left lower quadrant abdominal pain Dysuria Fatigue Lower extremity weakness Aortic stenosis Obstipation Dark stools Lower abdominal pain Gastroenteritis Neck pain on right side Back pain Rhinitis Elevated BP without diagnosis of hypertension Non-rheumatic aortic stenosis Diverticulitis GERD (gastroesophageal reflux disease) Cat scratch Cat bite Epigastric discomfort Diarrhea Neuropathy Arthritis GERD (gastroesophageal reflux disease) HTN (hypertension) Irritable bowel Heart murmur Surgical History S/P AVR S/P TAVR (transcatheter aortic valve replacement) Hx of esophagogastroduodenoscopy Hx of colonoscopy History of tonsillectomy History of appendectomy Family History Father No problems noted. Mother No problems noted. Social History Household Members: Children Housing: House Are you a primary manager career to a significant other at home: No Do you presently have visiting nurse or other home services: No Alcohol intake: never Comment: Pt still ambulate on her own even though alarms are on Patient Tobacco Use Status: Former Tobacco user Tobacco use type: Cigarette Years Smoked: 55 e-Cigarette/Vaping Use: Never Used Second Hand Smoke Exposure: Yes Advance Directives Date on File: 03/28/23 service: No Current occupational status: retired Cognitive needs: No Hearing needs: No Vision needs: Yes (glasses) Questionnaire Thrive Questionnaire Date Thrive assessed: 01/05/25 I am a: Patient What is your living situation today?: I have a steady place to live Within the past 12 months, did the food you bought not last and you didn't have the money to get more?: Never true Within the past 12 months, did you worry whether your food would run out before you got money to buy more?: Never true Do you have trouble paying for medicines?: No Do you have trouble getting transportation to medical appointments?: No Do you have trouble paying your heating and electricity bill?: No Do you have trouble taking care of your child, family member or friend?: No Do you have trouble with day-to-day activities such as bathing, preparing meals, shopping, managing finances, etc.?: No Are you currently unemployed and looking for a job?: No Are you interested in more education?: No Currently or been in a relationship where the following occur: No concerns reported THRIVE Score: 0 PAIGE-7 AMB Questionnaire PAIGE-7 Date PAIGE - 7 assessed: 01/07/25 Source: Developed by Drs. Anatoliy Gavin, Peyton Hunt, Austyn Weber and colleagues, with an educational kentrell from [employer]. Review of Systems Const Denies body aches, Denies chills, Denies fever(s), Denies headache(s) and Denies poor appetite Eyes Reports no additional complaints ENT Denies dizziness and Denies headache(s) Card Denies chest pain, Denies edema and Denies dyspnea Resp Denies dyspnea GI Denies abdominal pain, Denies nausea and Denies vomiting Reports no additional complaints Musc Reports no additional complaints and Denies abnormal gait Skin/Breast Reports system reviewed and no additional complaints, except as documented Neuro Denies abnormal gait, Denies dizziness and Denies headache(s) Psych Reports no additional complaints Physical exam (Primary Care) Vital Signs: Last Vital Signs BP 148/58 H 03/21/25 09:58 Oxygen Delivery Method Room Air 03/21/25 09:56 BMI result Body Mass Index 25.3 Tobacco/Smoking Status: Tobacco use Status Tobacco use date assessed 03/21/25 03/21/25 09:57 Patient Tobacco Use Status Former Tobacco user 03/21/25 09:57 Tobacco use type Cigarette 03/21/25 09:57 e-Cigarette/Vaping Use Never Used 03/21/25 09:57 Thrive Assessment: Date of Thrive Assessment Date Thrive assessed 01/05/25 03/21/25 09:57 Currently or been in a relationship where the following occur: No concerns reported Const General: cooperative, healthy appearing, comfortable and no acute distress Orientation/consciousness: patient oriented x3 HENMT Head: Yes normocephalic Ears: hearing grossly normal bilaterally General nose exam: Normal external nose present Eyes General: appearance normal, both eyes and all related structures Conjunctivae: conjunctivae normal Neck Neck: Yes full ROM and Yes no lymphadenopathy Resp Effort & Inspection: normal respiratory effort Auscultation: clear to auscultation bilaterally, no crackles, no rales, no rhonchi and no wheezes Cardio Rate: regular rate Rhythm: regular rhythm Skin General skin exam: no rashes or lesions noted Neuro General: patient oriented x3 Gait exam (Neuro): Normal gait present Extrem Other: Intact and equal strength, sensation, pulses in bilateral lower extremities. No swelling, redness, warmth or pain to palpation General: Yes normal to inspection, Yes full ROM and No edema Psych Affect: normal affect Attitude: cooperative Insight: Good insight present (Psych) Judgement: Good judgement present (Psych) Coding Level of Care Code Est Pt Level 4 (84312) Diagnoses Anxiety F41.9 Primary hypertension I10 Hypertension type: primary hypertension Fracture of right distal radius S52.501A Numbness of right foot R20.0 Assessment & Plan Assessment & Plan (1) Anxiety: Code(s): F41.9 - Anxiety disorder, unspecified Category: Medical Plan: Patient endorsing significant anxiety since discharge from likely due to the disruption of reschedule. She has an appointment with her psychiatrist on Monday to review med changes. I did advise her to reach out to her psychiatrist in regards to the Remeron given she was having side effects and to hold the medication until speaking with her psychiatrist. Continue to follow with psych and plan to obtain updated med rec. (2) HTN (hypertension): Code(s): I10 - Essential (primary) hypertension Category: Medical Qualifiers: Hypertension type: primary hypertension Qualified Code(s): I10 - Essential (primary) hypertension Plan: Continue on current blood pressure medication. Avoid salt intake and encourage healthy diet and regular exercise. (3) Fracture of right distal radius: Comment: November 2024 Code(s): S52.501A - Unspecified fracture of the lower end of right radius, initial encounter for closed fracture Category: Medical Plan: Continue to follow with orthopedics (4) Numbness of right foot: Code(s): R20.0 - Anesthesia of skin Category: Medical Plan: Patient reporting 2 episodes of right foot numbness that resolved spontaneously. She reports subjective weakness in bilateral lower extremities likely due to deconditioning. I did discuss with the patient with 2 episodes of numbness and a normal neuro exam EMG is not necessarily warranted. Patient is requesting EMG to assess for nerve function and orders were placed today. I did also advise her to reach out to her neurologist to discuss this concern. Plan The plan includes monitoring the patient's anxiety and dizziness, particularly in relation to the recent initiation of Remeron. The patient is advised to consult with her prescribing physician regarding the continuation of Remeron, especially given the dizziness and anxiety symptoms. Additionally, a nerve study test has been ordered to further investigate the neuropathy symptoms, and the patient is encouraged to follow up with her neurologist for further evaluation. The patient is also advised to consider her living situation, as transitioning to assisted living may help manage her anxiety and provide a more structured environment. This note was constructed using voice recognition software. While every effort has been made to ensure accuracy and battery starter, still areas may have been included sometimes these areas may affect the content or meeting of the given symptoms. Total time spent caring for the patient today was 30 minutes. This includes time spent before the visit reviewing the chart, time spent during the visit, and time spent after the visit and documentation. Patient was informed and verbally consented to the use of an ambient scribe for clinic note documentation during this visit. Orders: Orders NE electromyogram (EMG) Today R20.0 - Anesthesia of skin NE nerve conduction velocity Today R20.0 - Anesthesia of skin SARS-CoV2/FLU/RSV Today R09.89 - Other specified symptoms and signs involving the circulatory and respiratory systems Medications: New melatonin 5 mg PO DAILY 30 caps 0RF
[2025-03-21 09:58] VITALS: BP 148/58; BMI 25.3
== END 2025-03-21 10:36 | disposition home or self-care (01) ==
PROVIDERS: PCP Internal Medicine
DX: F41.9 Anxiety disorder, unspecified (principal); I10 Essential (primary) hypertension; S52.501A Unspecified fracture of the lower end of right radius, initial encounter for closed fracture; R20.0 Anesthesia of skin

== ENCOUNTER → 2025-03-21 09:33 | Outpatient (BNVA) | payer MEDICARE, OTHER, SELFPAY | PROVIDERS: PCP Internal Medicine | DX: F41.9 Anxiety disorder, unspecified (principal); I10 Essential (primary) hypertension; R20.0 Anesthesia of skin; S52.501D Unspecified fracture of the lower end of right radius, subsequent encounter for closed fracture with routine healing | CPT/HCPCS: 99212 ==

== ENCOUNTER 2025-04-16 11:29 | Outpatient (AMB) | payer MEDICARE, OTHER, SELFPAY ==
--- NOTE | 2025-04-16 11:42 | A.OFFVIS_ITS ---
Intake Vital Signs 04/16/25 11:43 04/16/25 12:22 04/16/25 12:22 Height 5 ft 6 in Weight 164 lb 6 oz BMI 26.5 BP 116/52 L 90/48 L 86/42 L Blood Pressure Location Lt brachial Lt brachial Lt brachial Position Sitting Sitting Sitting Pulse 67 Pulse Oximetry (%) 96 Oxygen Delivery Method Room Air Intake Visit Reasons: AWV Allergies buspirone Allergy (Intermediate, Verified 04/16/25 12:54) Rash Sulfa (Sulfonamide Antibiotics) Allergy (Intermediate, Verified 04/16/25 12:54) RASH cefuroxime Allergy (Unknown, Verified 04/16/25 12:54) Unknown garlic (GARLIC) Allergy (Unknown, Verified 04/16/25 12:54) PER H&P metronidazole (From FLAGYL) Allergy (Unknown, Verified 04/16/25 12:54) OCULAR MIGRAINES penicillamine Allergy (Unknown, Verified 04/16/25 12:54) Unknown ciprofloxacin Adverse Reaction (Intermediate, Verified 04/16/25 12:54) neuropathic pain lisinopril Adverse Reaction (Intermediate, Verified 04/16/25 12:54) Cough nitrofurantoin Adverse Reaction (Mild, Verified 04/16/25 12:54) GI side effects cefuroxime Allergy (Intermediate, Uncoded 04/16/25 12:54) wheezy cough/itch flagyl Allergy (Unknown, Uncoded 04/16/25 12:54) Unknown From KEFLEX Allergy (Unknown, Uncoded 04/16/25 12:54) RASH Metoprolol Tartrate Allergy (Unknown, Uncoded 04/16/25 12:54) Unknown Sulfacet-R Allergy (Unknown, Uncoded 04/16/25 12:54) Unknown Medication List - Last Reconciled 04/16/25 by Angelina Razo PA-C acetaminophen 325 mg PO Q4H PRN albuterol sulfate 90 mcg/actuation 2 puffs inhalation Q4-6H PRN alprazolam 0.25 mg PO DAILY bupropion HCl 75 mg PO DAILY cholecalciferol (vitamin D3) (Vitamin D3) 50 mcg PO DAILY citalopram 10 mg PO DAILY citalopram (Celexa) 20 mg PO BEDTIME clopidogrel 75 mg PO DAILY fluticasone propion-salmeterol 115-21 mcg/actuation (Advair HFA) 2 puffs inhalation BID fluticasone propionate 50 mcg/actuation 1 spray intranasal DAILY 30 days losartan 25 mg PO DAILY melatonin 5 mg PO DAILY mirabegron ER (Myrbetriq) 25 mg PO DAILY 90 days pantoprazole (Protonix) 40 mg PO DAILY@0630 polyethylene glycol 3350 (Miralax) 17 grams PO DAILY PRN HPI AWV HPI Details 84-year-old female with past medical his tory significant for hypertension, aortic valve replacement, severe generalized anxiety disorder, anemia last seen 03/2025 coming in for annual exam. Presenting with a wellness check and management of multiple chronic conditions. Mild cognitive decline was noted by Dr. White, with no drastic abnormalities observed. CoQ10 was recommended but not initially taken. Tremors have been persistent, with no significant change in severity. They are exacerbated by anxiety. A cough developed a week ago, described as deep and occasional, with no productive sputum. It is suspected to be allergy-related. Hypotension was observed with blood pressure readings as low as 86/48 mmHg, causing lightheadedness and dizziness. Depression has been ongoing, with medication adjustments including bupropion and citalopram. The patient has experienced nausea when doses are missed. Constipation has been managed with suppositories, with a recommendation to start MiraLax for maintenance. A suspected urinary tract infection was noted due to burning during urination, with a urine test planned. DEXA: 2023 colonoscopy: 2022 UTD with GI vaccines: NCD [facility] Medical History Annual wellness visit Acute diverticulitis LLQ abdominal pain Contusion of right lower leg Otitis media Cough Bronchitis Pelvic pain Chronic cough Elevated IgE level Status post fall Hip pain Post-menopausal URI (upper respiratory infection) Sensation of pressure in bladder area Chest pain Elevated blood sugar Oral candidiasis GERD (gastroesophageal reflux disease) Pulmonary nodule HTN (hypertension) Heart palpitations Constipation Breast cancer screening Breast pain, left Elevated vitamin B12 level Neck muscle spasm Strain of neck muscle Low back pain Pubic ramus fracture Sore throat Skin tear of upper arm without complication Head injury, acute, without loss of consciousness Fall Dizziness Medication noncompliance due to cognitive impairment RLQ abdominal pain Sinusitis Flu syndrome Precordial chest pain Atypical chest pain Cold intolerance Former smoker Abnormal lung sounds Fever Bilateral calf pain Nausea Left lower quadrant abdominal pain Dysuria Fatigue Lower extremity weakness Aortic stenosis Obstipation Dark stools Lower abdominal pain Gastroenteritis Neck pain on right side Back pain Rhinitis Elevated BP without diagnosis of hypertension Non-rheumatic aortic stenosis Diverticulitis GERD (gastroesophageal reflux disease) Cat scratch Cat bite Epigastric discomfort Diarrhea Neuropathy Arthritis GERD (gastroesophageal reflux disease) HTN (hypertension) Irritable bowel Heart murmur Surgical History S/P AVR S/P TAVR (transcatheter aortic valve replacement) Hx of esophagogastroduodenoscopy Hx of colonoscopy History of tonsillectomy History of appendectomy Family History Father No problems noted. Mother No problems noted. Social History Household Members: Children Housing: House Are you a primary hemodialysis patient care specialist to a significant other at home: No Do you presently have visiting nurse or other home services: No Alcohol intake: never Comment: Pt still ambulate on her own even though alarms are on Patient Tobacco Use Status: Former Tobacco user Tobacco use type: Cigarette Years Smoked: 55 Smoked in Last 30 Days: No e-Cigarette/Vaping Use: Never Used Second Hand Smoke Exposure: Yes Use of substances other than those prescribed or required for medical reasons: No Advance Directives: Yes Advance Directives on File: Yes Advance Directives Date on File: 03/28/23 Do you have a plan to hurt others: No Plan service: No Current occupational status: retired Cognitive needs: No Hearing needs: No Vision needs: Yes (glasses) Questionnaire Medicare Wellness Checkup What is your age?: 80 or older What gender do you identify with?: female During the past 4 weeks, how much have you been bothered by emotional problems such as feeling anxious, depressed, irritable, sad or downhearted, and blue?: moderately During the past 4 weeks, has your physical & emotional health limited your social activities with family, friends, neighbors, or groups?: moderately During the past 4 weeks, how much bodily pain have you generally had?: very mild pain During the past 4 weeks, was someone available to help you if you needed & wanted help?: yes, a little During the past 4 weeks, what was the hardest physical activity you could do for at least 2 minutes?: moderate Can you go shopping for groceries or clothes without someone's help?: No Can you prepare your own meals?: Yes Can you do your housework without help?: No Because of any health problems, do you need the help of another person with your personal care needs such as eating, bathing, dressing or getting around the house?: No Can you handle your own money without help?: Yes During the past 4 weeks, how would you rate your health in general?: good During the past 4 weeks how have things been going for you?: good & bad parts about equal Are you having difficulties driving your car?: not applicable, I don't use a car Do you always fasten your seat belt when you are in a car?: yes, usually During past 4 weeks, have you been bothered by the following: never: Sexual problems? and Problems using the telephone?, seldom: Falling or dizzy when standing up, sometimes: Trouble eating well? and often: Teeth or denture problems? and Tiredness or fatigue? Have you fallen 2 or more times in the past year?: Yes Are you afraid of falling?: No Are you a smoker?: no During the past 4 weeks, how many drinks of wine, beer, or other alcoholic beverages did you have?: no alcohol at all Do you exercise for about 20 minutes 3 or more times a week?: no, I usually do not exercise this much Have you been given information to help with the following?: yes: Keeping track of your medications? and no: Hazards in your house that might hurt you? How often do you have trouble taking medicines the way you have been told to take them?: I always take medicine as prescribed How confident are you that you can control & manage most of your health problems?: somewhat confident What is your race?: White PHQ-9 Over the last 2 weeks, how often have you been bothered by any of the following problems? 1. Little interest or pleasure in doing things: not at all 2. Feeling down, depressed, or hopeless: more than half the days 3. Trouble falling or staying asleep, or sleeping too much: more than half the days 4. Feeling tired or having little energy: several days 5. Poor appetite or overeating: more than half the days 6. Feeling bad about yourself - or that you are a failure or have let yourself or your family down: several days 7. Trouble concentrating on things, such as reading the newspaper or watching television: not at all 8. Moving or speaking so slowly that other people could have noticed. Or the opposite - being so fidgety or restless that you have been moving around a lot more than usual: not at all 9. Thoughts that you would be better off or of hurting yourself in some way: not at all Total score: 8 Depression Screening Interpretation: Positive Depression Screening Follow-up: Existing condition and In treatment Depression Screening Done: Yes 78930 - PHQ-9 Billing: Yes Source: Developed by Drs. Anatoliy Gavin, Peyton Hunt, Austyn Weber and colleagues, with an educational kentrell from [employer]. Review of Systems Const Denies body aches, Denies chills, Denies fever(s), Denies headache(s) and Denies poor appetite Eyes Reports no additional complaints and Reports requires corrective lenses ENT Denies dysphagia, Reports dizziness, Denies headache(s) and Denies odynophagia Card Denies chest pain, Denies syncope, Denies edema, Denies irregular heart rhythm, Reports lightheadedness and Denies dyspnea Resp Reports cough (rare ) and Denies dyspnea GI Denies abdominal pain, Reports constipation, Denies dysphagia, Denies diarrhea, Denies nausea, Denies odynophagia and Denies vomiting Details: frequent urination and discomfort with urination Musc Reports no additional complaints and Denies abnormal gait Skin/Breast Reports system reviewed and no additional complaints, except as documented Neuro Denies abnormal gait, Reports dizziness, Denies syncope and Denies headache(s) Psych Reports no additional complaints Physical Exam Vital Signs: Last Vital Signs Pulse 67 04/16/25 11:43 BP 86/42 L 04/16/25 12:22 Pulse Ox 96 04/16/25 11:43 Oxygen Delivery Method Room Air 04/16/25 11:43 BMI result Body Mass Index 26.5 Const General: cooperative, healthy appearing, comfortable and no acute distress Orientation/consciousness: patient oriented x3 HEENT Head: Yes normocephalic Ears: hearing grossly normal bilaterally General nose exam: Normal external nose present Eyes General: appearance normal, both eyes and all related structures Conjunctivae: conjunctivae normal Neck Neck: Yes full ROM and Yes no lymphadenopathy Resp Effort & Inspection: normal respiratory effort Auscultation: clear to auscultation bilaterally, no crackles, no rales, no rhonchi and no wheezes Cardio Rate: regular rate Rhythm: regular rhythm Skin General skin exam: no rashes or lesions noted Neuro General: patient oriented x3 Gait exam (Neuro): Normal gait present Extrem General: Yes normal to inspection, Yes full ROM and No edema Psych Affect: normal affect Attitude: cooperative Insight: Good insight present (Psych) Judgement: Good judgement present (Psych) Assessment & Plan Assessment & Plan (1) Annual wellness visit: Code(s): Z00.00 - Encounter for general adult medical examination without abnormal findings Plan: Patient is up-to-date on all recommended routine screenings and vaccinations for her age. Blood work is up-to-date and has been reviewed with the patient today. [place] of care was reviewed with patient patient was provided with a written screening schedule. Healthcare proxy/ MOLST forms were reviewed with patient. (2) HTN (hypertension): Code(s): I10 - Essential (primary) hypertension Qualifiers: Hypertension type: primary hypertension Qualified Code(s): I10 - Essential (primary) hypertension Plan: Patient is hypotensive in the office today 86/42 given that she is symptomatic with lightheadedness and dizziness we did recommend going to the ED for further evaluation and possible fluid resuscitation. Patient agrees and was sent across the street [place] [facility] [place]. Hold the losartan at this time and she will monitor the blood pressures at home and reach out if the exceed 140/90 (3) Generalized anxiety disorder: Comment: [facility] Code(s): F41.1 - Generalized anxiety disorder Plan: Patient is currently following with a psychiatrist and counselor she was recently started on Wellbutrin once daily and continued on citalopram 20 mg twice daily. (4) S/P TAVR (transcatheter aortic valve replacement): Code(s): Z95.2 - Presence of prosthetic heart valve Plan: Continue to follow with Cardiology (5) B12 deficiency: Code(s): E53.8 - Deficiency of other specified B group vitamins Plan: Continue to monitor blood work at this time not currently on supplementation. (6) GERD without esophagitis: Code(s): K21.9 - Gastro-esophageal reflux disease without esophagitis Plan: Avoid trigger foods such as citrus, tomato products, soda, caffeine, spicy foods and other foods that may be irritating to your stomach. Avoid laying flat 3-4 hours after eating and elevate the head of the bed 30 degrees to prevent acid from moving into the esophagus. (7) Constipation: Code(s): K59.00 - Constipation, unspecified Qualifiers: Constipation type: slow transit constipation Qualified Code(s): K59.01 - Slow transit constipation Plan: Reminded patient of the 3 rules of constipation; drink plenty of water, exercise as tolerated increase fiber intake. Plan to trial MiraLax every other day. If she does develop diarrhea to back off the use of MiraLax. (8) Hydrocephalus: Code(s): G91.9 - Hydrocephalus, unspecified Plan: Patient is currently following with neurology for this concern. Asymptomatic at this time (9) Memory impairment: Code(s): R41.3 - Other amnesia Plan: Following with Dr. White with [facility] for memory impairment and started on Co Q10. (10) Numbness of right foot: Code(s): R20.0 - Anesthesia of skin Plan: Patient has EMG coming up to evaluate for numbness of the right foot. (11) COPD (chronic obstructive pulmonary disease): Code(s): J44.9 - Chronic obstructive pulmonary disease, unspecified Plan: Feels her breathing is well managed at this time. She will continue on current inhalers (12) TIA (transient ischemic attack): Code(s): G45.9 - Transient cerebral ischemic attack, unspecified Plan: For TIA recommend good control of blood sugars, blood pressures and cholesterol. She is on clopidogrel 75 mg daily. Plan The plan includes holding the losartan due to hypotension and arranging for the patient to receive fluids at the hospital to address dehydration and potential urinary tract infection. A urine test will be conducted to confirm the presence of a urinary tract infection. The patient is advised to monitor blood pressure daily and report any significant changes. CoQ10 supplementation is recommended for cognitive support, and MiraLax is advised for constipation management. The patient is encouraged to maintain a regular sleep schedule to address depression and sleep disturbances. Follow-up with the primary care provider is recommended to reassess the patient's condition and adjust medications as needed. This note was constructed using voice recognition software. While every effort has been made to ensure accuracy and supervisor fitting, still areas may have been included sometimes these areas may affect the content or meeting of the given symptoms. Total time spent caring for the patient today was 30 minutes. This includes time spent before the visit reviewing the chart, time spent during the visit, and time spent after the visit and documentation. Patient was informed and verbally consented to the use of an ambient scribe for clinic note documentation during this visit. Orders: Orders AMB Urinalysis Dipstick 04/16/25 Z13.9 - Encounter for screening, unspecified Medications: New ondansetron 4 mg PO Q8H PRN 20 tabs 0RF nausea and vomiting polyethylene glycol 3350 (Miralax) 17 grams PO DAILY PRN 30 ea 0RF Constipation Changed From citalopram 10 mg PO DAILY To citalopram 20 mg PO DAILY Discontinued melatonin Discontinued Reason: Patient no longer taking 5 mg PO DAILY 30 caps 0RF Quality Reporting (2019) Depression/Bipolar (159/160/161/177) PHQ-9: Total score: 8 Coding Level of Care Code Medicare Subsequent (G0439) Est Pt Level 3 (11584) Diagnoses Annual wellness visit Z00.00 Primary hypertension I10 Hypertension type: primary hypertension Generalized anxiety disorder F41.1 S/P TAVR (transcatheter aortic valve replacement) Z95.2 B12 deficiency E53.8 GERD without esophagitis K21.9 Slow transit constipation K59.01 Constipation type: slow transit constipation Idiopathic normal pressure hydrocephalus G91.9 Memory impairment R41.3 Numbness of right foot R20.0 COPD (chronic obstructive pulmonary disease) J44.9 TIA (transient ischemic attack) G45.9 CPT Codes Advance Care Planning - Advance Care Planning discussion: On file, no changes ([id number]) Advance Care Planning - Time spent: 1-15 minutes, on File ([id number]) Additional Codes PHQ-9 - 98102 - PHQ-9 Billing: Yes ([id number]) Advance Care Planning Advance Care Planning discussion: On file, no changes Date of discussion: 04/16/25 Who was present: patient, son, myself Time spent: 1-15 minutes, on File Did not discuss due to Cultural/Spiritual beliefs: No
--- NOTE | 2025-04-16 11:42 | A.OFFVIS_ITS ---
Intake Intake Visit Reasons: AWV Allergies buspirone Allergy (Intermediate, Verified 04/16/25 11:42) Rash Sulfa (Sulfonamide Antibiotics) Allergy (Intermediate, Verified 04/16/25 11:42) RASH cefuroxime Allergy (Unknown, Verified 04/16/25 11:42) Unknown garlic (GARLIC) Allergy (Unknown, Verified 04/16/25 11:42) PER H&P metronidazole (From FLAGYL) Allergy (Unknown, Verified 04/16/25 11:42) OCULAR MIGRAINES penicillamine Allergy (Unknown, Verified 04/16/25 11:42) Unknown ciprofloxacin Adverse Reaction (Intermediate, Verified 04/16/25 11:42) neuropathic pain lisinopril Adverse Reaction (Intermediate, Verified 04/16/25 11:42) Cough nitrofurantoin Adverse Reaction (Mild, Verified 04/16/25 11:42) GI side effects cefuroxime Allergy (Intermediate, Uncoded 04/16/25 11:42) wheezy cough/itch flagyl Allergy (Unknown, Uncoded 04/16/25 11:42) Unknown From KEFLEX Allergy (Unknown, Uncoded 04/16/25 11:42) RASH Metoprolol Tartrate Allergy (Unknown, Uncoded 04/16/25 11:42) Unknown Sulfacet-R Allergy (Unknown, Uncoded 04/16/25 11:42) Unknown [facility] Medical History Acute diverticulitis LLQ abdominal pain Contusion of right lower leg Otitis media Cough Bronchitis Pelvic pain Chronic cough Elevated IgE level Status post fall Annual wellness visit Hip pain Post-menopausal URI (upper respiratory infection) Sensation of pressure in bladder area Chest pain Elevated blood sugar Oral candidiasis GERD (gastroesophageal reflux disease) Pulmonary nodule HTN (hypertension) Heart palpitations Constipation Breast cancer screening Breast pain, left Elevated vitamin B12 level Neck muscle spasm Strain of neck muscle Low back pain Pubic ramus fracture Sore throat Skin tear of upper arm without complication Head injury, acute, without loss of consciousness Fall Dizziness Medication noncompliance due to cognitive impairment RLQ abdominal pain Sinusitis Flu syndrome Precordial chest pain Atypical chest pain Cold intolerance Former smoker Abnormal lung sounds Fever Bilateral calf pain Nausea Left lower quadrant abdominal pain Dysuria Fatigue Lower extremity weakness Aortic stenosis Obstipation Dark stools Lower abdominal pain Gastroenteritis Neck pain on right side Back pain Rhinitis Elevated BP without diagnosis of hypertension Non-rheumatic aortic stenosis Diverticulitis GERD (gastroesophageal reflux disease) Cat scratch Cat bite Epigastric discomfort Diarrhea Neuropathy Arthritis GERD (gastroesophageal reflux disease) HTN (hypertension) Irritable bowel Heart murmur Surgical History S/P AVR S/P TAVR (transcatheter aortic valve replacement) Hx of esophagogastroduodenoscopy Hx of colonoscopy History of tonsillectomy History of appendectomy Family History Father No problems noted. Mother No problems noted. Social History Household Members: Children Housing: House Are you a primary career services officer to a significant other at home: No Do you presently have visiting nurse or other home services: No Alcohol intake: never Comment: Pt still ambulate on her own even though alarms are on Patient Tobacco Use Status: Former Tobacco user Tobacco use type: Cigarette Years Smoked: 55 e-Cigarette/Vaping Use: Never Used Second Hand Smoke Exposure: Yes Advance Directives Date on File: 03/28/23 service: No Current occupational status: retired Cognitive needs: No Hearing needs: No Vision needs: Yes (glasses) Coding
[2025-04-16 11:43] VITALS: BP 116/52; PULSE 67; O2SAT 96; BMI 26.5
[2025-04-16 12:22] VITALS: BP 86/42; BP 90/48
== END 2025-04-16 12:54 | disposition home or self-care (01) ==
LOC: HO.HMCH 11:30
PROVIDERS: PCP Internal Medicine
DX: Z00.00 Encounter for general adult medical examination without abnormal findings (principal); G91.9 Hydrocephalus, unspecified; J44.9 Chronic obstructive pulmonary disease, unspecified; I10 Essential (primary) hypertension; F41.1 Generalized anxiety disorder; Z95.2 Presence of prosthetic heart valve; E53.8 Deficiency of other specified B group vitamins; K21.9 Gastro-esophageal reflux disease without esophagitis; K59.01 Slow transit constipation; R41.3 Other amnesia; R20.0 Anesthesia of skin; G45.9 Transient cerebral ischemic attack, unspecified

== ENCOUNTER 2025-04-16 12:41 | Emergency (ER) | payer MEDICARE, OTHER, SELFPAY ==
[2025-04-16] VITALS (7 sets, daily range): BP systolic 117–187; BP diastolic 57–86; PULSE 57–91; RESP 12–18; TEMP 36.7–36.8; O2SAT 96–98; BMI 26.5
--- NOTE | 2025-04-16 12:52 | ED.GENADULT ---
HPI - General Adult General Chief complaint: General Medical Stated complaint: HYPERTENSION, DIZZY, 86/48, DR garcía Time Seen by Provider: 04/16/25 16:42 Source: patient Mode of arrival: ambulatory Limitations: no limitations History of Present Illness ED Provider: HPI narrative: Patient is 84 years old with history of anxiety hypertension COPD status post TAVR went to see her PCP as a annual visit PCP checked her her blood pressure was 86 systolic center here for further workup patient took her blood pressure medicine 2 hours prior to the blood pressure checked, in the ER patient came blood pressure was 117/57 Related Data Home Medications ?Medication ?Instructions ?Recorded ?Confirmed alprazolam 0.25 mg tablet 0.25 mg PO DAILY 03/28/24 04/16/25 citalopram 20 mg tablet (Celexa) 20 mg PO BEDTIME 11/28/24 04/16/25 fluticasone propionate 115 2 puff inhalation BID 01/14/25 04/16/25 mcg-salmeterol 21 mcg/actuation HFA inhaler (Advair HFA) acetaminophen 325 mg tablet 325 mg PO Q4H PRN Pain 02/10/25 04/16/25 bupropion HCl 75 mg tablet 75 mg PO DAILY 04/16/25 04/16/25 citalopram 10 mg tablet 20 mg PO DAILY 04/16/25 04/16/25 Previous Rx's ?Medication ?Instructions ?Recorded albuterol sulfate 90 mcg/actuation 2 puff inhalation Q4-6H PRN 09/06/24 aerosol inhaler shortness of breath or wheezing #1 ea mirabegron 25 mg tablet,extended 25 mg PO DAILY 90 days #90 tabs 11/01/24 release 24 hr (Myrbetriq) cholecalciferol (vitamin D3) 50 50 mcg PO DAILY #90 tabs 12/09/24 mcg (2,000 unit) tablet (Vitamin D3) fluticasone propionate 50 1 spray intranasal DAILY 30 days 01/19/25 mcg/actuation nasal #16 grams spray,suspension clopidogrel 75 mg tablet 75 mg PO DAILY #90 tabs 03/20/25 pantoprazole 40 mg tablet,delayed 40 mg PO DAILY@0630 #90 tabs 04/13/25 release (Protonix) ondansetron 4 mg disintegrating 4 mg PO Q8H PRN nausea and 04/16/25 tablet vomiting #20 tabs polyethylene glycol 3350 17 gram 17 g PO DAILY PRN Constipation #30 04/16/25 oral powder packet (Miralax) ea Allergies Allergy/AdvReac Type Severity Reaction Status Date / Time buspirone Allergy Intermediate Rash Verified 04/16/25 12:54 Sulfa (Sulfonamide Allergy Intermediate RASH Verified 04/16/25 12:54 Antibiotics) cefuroxime Allergy Unknown Unknown Verified 04/16/25 12:54 garlic (GARLIC) Allergy Unknown PER H&P Verified 04/16/25 12:54 metronidazole (From FLAGYL) Allergy Unknown OCULAR Verified 04/16/25 12:54 MIGRAINES penicillamine Allergy Unknown Unknown Verified 04/16/25 12:54 ciprofloxacin AdvReac Intermediate neuropathic Verified 04/16/25 12:54 pain lisinopril AdvReac Intermediate Cough Verified 04/16/25 12:54 nitrofurantoin AdvReac Mild GI side Verified 04/16/25 12:54 effects cefuroxime Allergy Intermediate wheezy Uncoded 04/16/25 12:54 cough/itch flagyl Allergy Unknown Unknown Uncoded 04/16/25 12:54 From KEFLEX Allergy Unknown RASH Uncoded 04/16/25 12:54 Metoprolol Tartrate Allergy Unknown Unknown Uncoded 04/16/25 12:54 Sulfacet-R Allergy Unknown Unknown Uncoded 04/16/25 12:54 Review of Systems Review of Systems: Yes all other systems are reviewed and are negative [facility] Past Medical History Medical History Annual wellness visit Acute diverticulitis LLQ abdominal pain Contusion of right lower leg Otitis media Cough Bronchitis Pelvic pain Chronic cough Elevated IgE level Status post fall Hip pain Post-menopausal URI (upper respiratory infection) Sensation of pressure in bladder area Chest pain Elevated blood sugar Oral candidiasis GERD (gastroesophageal reflux disease) Pulmonary nodule HTN (hypertension) Heart palpitations Constipation Breast cancer screening Breast pain, left Elevated vitamin B12 level Neck muscle spasm Strain of neck muscle Low back pain Pubic ramus fracture Sore throat Skin tear of upper arm without complication Head injury, acute, without loss of consciousness Fall Dizziness Medication noncompliance due to cognitive impairment RLQ abdominal pain Sinusitis Flu syndrome Precordial chest pain Atypical chest pain Cold intolerance Former smoker Abnormal lung sounds Fever Bilateral calf pain Nausea Left lower quadrant abdominal pain Dysuria Fatigue Lower extremity weakness Aortic stenosis Obstipation Dark stools Lower abdominal pain Gastroenteritis Neck pain on right side Back pain Rhinitis Elevated BP without diagnosis of hypertension Non-rheumatic aortic stenosis Diverticulitis GERD (gastroesophageal reflux disease) Cat scratch Cat bite Epigastric discomfort Diarrhea Neuropathy Arthritis GERD (gastroesophageal reflux disease) HTN (hypertension) Irritable bowel Heart murmur Surgical History S/P AVR S/P TAVR (transcatheter aortic valve replacement) Hx of esophagogastroduodenoscopy Hx of colonoscopy History of tonsillectomy History of appendectomy Family History Family History Father No problems noted. Mother No problems noted. Social History Social History Household Members: Children Housing: House Are you a primary hospice care transitions coordinator to a significant other at home: No Do you presently have visiting nurse or other home services: No Alcohol intake: never Comment: Pt still ambulate on her own even though alarms are on Patient Tobacco Use Status: Former Tobacco user Tobacco use type: Cigarette Years Smoked: 55 Smoked in Last 30 Days: No e-Cigarette/Vaping Use: Never Used Second Hand Smoke Exposure: Yes Use of substances other than those prescribed or required for medical reasons: No Advance Directives: Yes Advance Directives on File: Yes Advance Directives Date on File: 03/28/23 Do you have a plan to hurt others: No Plan service: No Current occupational status: retired Cognitive needs: No Hearing needs: No Vision needs: Yes (glasses) Physical Exam ED Vital Signs: Vital Signs - 24 hr 04/16/25 18:49 04/16/25 19:27 04/16/25 19:32 Temperature Pulse Rate 57 84 82 Respiratory Rate 12 Blood Pressure 160/68 H 178/86 H 187/85 H Pulse Oximetry 98 Oxygen Delivery Method Room Air 04/16/25 19:35 04/16/25 20:33 Temperature 98.1 F Pulse Rate 91 91 Respiratory Rate 17 Blood Pressure 149/74 H 149/74 H Pulse Oximetry Oxygen Delivery Method BMI result Body Mass Index 26.5 Appearance: Alert. Oriented X3. No acute distress. Eyes: PERRLA, No Nystagmus ENT: Pharynx normal. Oral Mucosa moist Neck: Normal inspection. Neck supple. CVS: Normal heart rate and rhythm. Pulses normal. Respiratory: No respiratory distress. Equal air entry bilateral, no wheezing/rales/rhonchi Abdomen: Soft and nontender. Bowel sounds are present, no mass palpable, no CVA tenderness Skin: Skin warm and dry. Normal skin color. Normal skin turgor. Extremities: No lower extremity edema. No calf tenderness Neuro: Oriented X 3. No motor deficit. No sensory deficit.No cerebellar signs , cranial nerves II-XII intact Course Course Course Narrative: This is a rapid medical exam performed by Vesna Stoner NP: Additional HPI, ROS, PE not included below will be deferred to primary provider. Patient is an 84-year-old female with history of GERD, HTN, s/p TAVR, anxiety, CVA/TIA, IBS, COPD, presenting from PCP office for increased urination, lightheadedness, and hypotension at PCP office. Plan: EKG, labs, UA Medications Administered Discontinued Medications Generic Name Dose Route Start Last Admin Trade Name Freq PRN Reason Stop Dose Admin Acetaminophen 650 mg 04/16/25 18:40 04/16/25 19:53 Acetaminophen 325 Mg Tablet PO 04/16/25 18:41 Not Given ONCE ONE Alprazolam 0.25 mg 04/16/25 18:47 04/16/25 19:36 Alprazolam 0.25 Mg Tablet PO 04/16/25 18:48 0.25 mg ONCE ONE Administration Ondansetron HCl 4 mg 04/16/25 18:47 04/16/25 19:36 Ondansetron Odt 4 Mg Tab.Rapdis TRANSLINGU 04/16/25 18:48 4 mg ONCE ONE Administration Medical Decision Making Lab Data MDM Lab Attestation statement: I reviewed the patient's lab results. 04/16/25 13:10 04/16/25 13:10 Labs: Lab Results 04/16/25 04/16/25 Range/Units 13:10 14:23 WBC 3.5 L (4.8-10.8) X10*3/uL RBC 2.82 L (4.20-5.50) X10*6/uL Hgb 8.3 L (12.0-16.0) g/dl Hct 25.5 L (37.0-47.0) % MCV 90.4 (80.0-98.0) fL MCH 29.4 (27.0-33.0) pg MCHC 32.5 (31.0-35.0) g/dl RDW 15.2 (11.0-16.0) % Plt Count 134 L (160-400) X10*3/uL MPV 11.3 (9.4-12.3) fL Immature Gran % (Auto) 0.3 (0.0-0.4) % Neut % (Auto) 75.4 H (45-73) % Lymph % (Auto) 13.8 L (20-40) % [place] % (Auto) 6.5 (2-11) % Eos % (Auto) 3.7 (0-4) % Baso % (Auto) 0.3 (0-2) % Lymph # (Auto) 0.5 L (1.2-4.9) X10*3/uL [place] # (Auto) 0.2 (0.1-1.2) X10*3/uL Eos # (Auto) 0.1 (0.0-0.4) X10*3/uL Baso # (Auto) 0.0 (0.0-0.2) X10*3/uL Abs Immat Gran (auto) 0.01 (0.00-0.03) X10*3/uL Absolute Neuts (auto) 2.7 (2.0-8.3) x10*3/uL Absolute Nucleated RBC 0.000 (0.0-0.012) X10*3/uL Nucleated RBC % (auto) 0.0 (0.0-0.2) /100WBC Sodium 141 (135-145) mmol/L Potassium 4.3 (3.3-5.1) mmol/L Chloride 103 (96-108) mmol/L Carbon Dioxide 29 (22-29) mmol/L Anion Gap 13 (12-20) BUN 21 H (9-16) mg/dL Creatinine 0.91 (0.5-1.4) mg/dL Estim Creat Clear Calc 47.4 Estimated GFR 59 Random Glucose 76 (60-115) mg/dL Calcium 9.5 (8.4-10.2) mg/dL Magnesium 2.0 (1.6-2.6) mg/dL Total Bilirubin 0.4 (0.0-1.0) mg/dL AST 22 (5-31) U/L ALT 12 (0-31) U/L Alkaline Phosphatase 90 (39-117) U/L Troponin I High Sens 4.3 (<3.5-17.0) ng/L Total Protein 6.9 (6.5-8.0) g/dL Albumin 4.3 (3.5-5.0) g/dL TSH 1.19 (0.32-4.0) uIU/mL Urine Color Yellow Urine Appearance Clear Urine pH 5.5 (5.0-9.0) Ur Specific Mill[place] 1.020 (1.005-1.025) Urine Protein Negative (Neg-Trace) mg/dL Urine Glucose (UA) Negative (Negative) mg/dL Urine Ketones Negative (Negative) mg/dL Urine Blood Negative (Negative) Urine Nitrite Negative (Negative) Ur Leukocyte Esterase Trace H (Negative) Urine RBC 0-2 (0-2) /HPF Urine WBC 0-5 (0-5) /HPF Ur Squamous Epith Cells 0-2 (0-2) /HPF Urine Bacteria None Seen (None Seen) Hyaline Casts 6-10 (0-2) /LPF Influenza Type A (PCR) NEGATIVE (Negative) Influenza Type B (PCR) NEGATIVE (Negative) RSV RNA Qual (PCR) NEGATIVE (Negative) SARS-CoV-2 RNA (RT-PCR) NEGATIVE (Negative) Independent Interpretation I performed an independent interpretation of an: EKG Interpretation: In the novel sinus rhythm heart rate 78 beats per minute Q-waves in inferior leads no acute STT wave changes no acute ischemia Discharge Plan Discharge Clinical Impression: Hypotension Patient Disposition: Home, Self-Care Instructions: Hypotension (DC) Additional Instructions: You had transient hypotension likely after taking your medications Check your blood pressure twice a day before taking medication and before going to bed Drink plenty of fluids Follow with your PCP with blood pressure readings Prescriptions: No Action albuterol sulfate 90 mcg/actuation HFA aerosol inhaler 2 puff inhalation Q4-6H PRN (Reason: shortness of breath or wheezing) Qty: 1 2RF cholecalciferol (vitamin D3) [Vitamin D3] 50 mcg (2,000 unit) tablet 50 mcg PO DAILY Qty: 90 3RF fluticasone propionate 50 mcg/actuation spray,suspension 1 spray intranasal DAILY 30 Days Qty: 16 0RF clopidogrel 75 mg tablet 75 mg PO DAILY Qty: 90 0RF pantoprazole [Protonix] 40 mg tablet,delayed release (DR/EC) 40 mg PO DAILY@0630 Qty: 90 0RF alprazolam 0.25 mg Tablet 0.25 mg PO DAILY acetaminophen 325 mg Tablet 325 mg PO Q4H PRN (Reason: Pain) fluticasone propion-salmeterol [Advair HFA] 115-21 mcg/actuation HFA aerosol inhaler 2 puff inhalation BID bupropion HCl 75 mg tablet 75 mg PO DAILY citalopram 10 mg tablet 20 mg PO DAILY ondansetron 4 mg tablet,disintegrating 4 mg PO Q8H PRN (Reason: nausea and vomiting) Qty: 20 0RF polyethylene glycol 3350 [Miralax] 17 gram powder in packet 17 g PO DAILY PRN (Reason: Constipation) Qty: 30 0RF mirabegron [Myrbetriq] 25 mg tablet extended release 24 hr 25 mg PO DAILY 90 Days Qty: 90 3RF citalopram [Celexa] 20 mg tablet 20 mg PO BEDTIME Interventions: ED Discharge Assessment Last Done: 04/16/25 20:33 Discharge Date/Time: 04/16/25 20:33 Print Language: Uzbek
--- NOTE | 2025-04-16 12:54 | ECG_ITS ---
Test Reason : CHEST PAIN Blood Pressure : */* mmHG Vent. Rate : 78 BPM Atrial Rate : 78 BPM P-R Int : 184 ms QRS Dur : 82 ms QT Int : 392 ms P-R-T Axes : 49 -14 24 degrees QTcB Int : 446 ms Normal sinus rhythm Inferior infarct , age undetermined Cannot rule out Anterior infarct , age undetermined Abnormal ECG When compared with ECG of 10-Feb-2025 00:09, [place] interval has decreased Minimal criteria for Anterior infarct are now Present Referred By: Apple Stoner Electronically Signed By: Guillaume Callahan
[2025-04-16 13:18] LABS: MANUAL DIFF FLAG NO
[2025-04-16 13:22] LABS: Hematocrit 25.5 % (37.0-47.0); Hemoglobin 8.3 g/dl (12.0-16.0); Imm Gran Abs Auto 0.01 X10*3/uL (0.00-0.03); Imm Gran Pct Auto 0.3 % (0.0-0.4); Lymphocytes Absolute Auto 0.5 X10*3/uL (1.2-4.9); Mean Corpuscular HGB Conc 32.5 g/dl (31.0-35.0); Mean Corpuscular Hemoglobin 29.4 pg (27.0-33.0); Mean Corpuscular Volume 90.4 fL (80.0-98.0); NRBC Abs Auto 0.000 X10*3/uL (0.0-0.012); NRBC Pct Auto 0.0 /100WBC (0.0-0.2); Platelet Count 134 X10*3/uL (160-400); Red Blood Count 2.82 X10*6/uL (4.20-5.50); White Blood Count 3.5 X10*3/uL (4.8-10.8)
[2025-04-16 13:47] LABS: Alanine Aminotransferase 12 U/L (0-31); Albumin Level 4.3 g/dL (3.5-5.0); Alkaline Phosphatase 90 U/L (39-117); Anion Gap 13 (12-20); Aspartate Amino Transferase 22 U/L (5-31); Blood Urea Nitrogen 21 mg/dL (9-16); Calcium 9.5 mg/dL (8.4-10.2); Carbon Dioxide 29 mmol/L (22-29); Chloride 103 mmol/L (96-108); Creatinine Clr Calc Pharmacy 47.4; Estimated Glomerular Filt Rate 59; Magnesium 2.0 mg/dL (1.6-2.6); Potassium 4.3 mmol/L (3.3-5.1); Sodium 141 mmol/L (135-145); Total Protein 6.9 g/dL (6.5-8.0)
[2025-04-16 13:48] LABS: Troponin-I High Sensitivity 4.3 ng/L (<3.5-17.0)
[2025-04-16 14:32] LABS: Resp Syncy Virus RNA Qual PCR NEGATIVE (Negative); SARS COV2 PCR INHOUSE NEGATIVE (Negative)
[2025-04-16 14:42] LABS: Appearance Urine Clear; Glucose Urine UA Negative (Negative); PH 5.5 (5.0-9.0); Specific Gravity - Urine 1.020 (1.005-1.025); UMIC TRIGGER UACC YES
--- OUTSIDE RECORDS SUMMARY | 2025-04-16 16:31 | XMS_ITS | Encounter Summary ---
Author Organization [facility] Address [address] [place] [address] Care Team Providers Care Laborer Demolition Name Role Phone Harris Gross MD Primary Care Provider [phone] Encounter Details Date Type Department Care Team (Late st Contact Info) Description 02/13/2025 Lab Requisition [facility] - Main Lab [address] [facility] [place] [address] Harris Gross MD [address] [place], [place] [id number] Vitamin D deficiency, unspecified; Gastrointestinal hemorrhage, unspecified; [...] * Vitamin B12 (02/13/2025 6:49 AM EDT) [facility] Vitamin B-12 391 250 - 900 pcg/mL LAB CHEMISTRY METHOD 02/13/2025 10:12 AM EDT [facility] LAB Blood Venous blood specimen / Unknown Venipuncture / Unknown 02/13/2025 6:49 AM EDT 02/13/2025 8:56 AM EDT us Harris Gross MD LAB BLOOD ORDERABLES Final Resul t Performing Organization Address [facility]/ZIP Co de Phone Number [facility] LAB [address] [place] [address], [place] [phone] * Vitamin D 25 hydroxy (02/13/2025 6:49 AM EDT) [facility] Vit D, 25-Hydroxy 57.4 30.0 - 80.0 ng/mL LAB CHEMISTRY METHOD 02/13/2025 11:18 AM EDT [facility] LAB Blood Venous blood specimen / Unknown Venipuncture / Unknown 02/13/2025 6:49 AM EDT 02/13/2025 8:56 AM EDT us Harris Gross MD LAB BLOOD ORDERABLES Final Resul t [facility] [address] [place] [address], [place] [phone] * Thyroid stimulating hormone (02/13/2025 6:49 AM EDT) [facility] TSH 1.12 0.40 - 4.00 mcIU/mL LAB CHEMISTRY METHOD 02/13/2025 11:19 AM EDT [facility] LAB Blood Venous blood specimen / Unknown Venipuncture / Unknown 02/13/2025 6:49 AM EDT 02/13/2025 8:56 AM EDT Harris Gross MD LAB BLOOD ORDERABLES Final Resul t [facility] [address] [place] [address], [place] [phone] * (ABNORMAL) Comprehensive metabolic panel (02/13/2025 6:49 [...] MD LAB BLOOD ORDERABLES Final Resul t [facility] [address] [place] [address], * (ABNORMAL) Complete blood count (02/13/2025 6:49 [...] MD LAB BLOOD ORDERABLES Final Resul t [facility] [address] [place] [address], documented in this encounter Visit Diagnoses Diagnosis Vitamin D deficiency, unspecified Gastrointestinal hemorrhage, unspecified Aphagia Anorexia documented in this encounter Care Teams Laborer Demolition Relationship Specialty Start Date End Date Harris Gross MD [address] [place] [address] [address] [place] [address] PCP - General Geriatric Medicine 02/13/25 documented as of this encounter
--- NOTE | 2025-04-16 19:45 | PC.NURSE ---
Patient is eating bedside, declined medication of Tylenol as her headache has resolved. Patient was given medications, sandwich, gingerale and a pudding.
== END 2025-04-16 20:33 | disposition home or self-care (01) ==
PROVIDERS: Registered Nurse Emergency; Emergency Provider Internal Medicine; PCP Internal Medicine
DX: I95.9 Hypotension, unspecified (principal); R42 Dizziness and giddiness; R07.89 Other chest pain; R94.31 Abnormal electrocardiogram [ECG] [EKG]; R35.0 Frequency of micturition; Z03.818 Encounter for observation for suspected exposure to other biological agents ruled out; Z79.899 Other long term (current) drug therapy; Z87.891 Personal history of nicotine dependence
CPT/HCPCS: 80053; 81001; 83735; 84443; 84484; 85025; 87637; 93005; 96127; 99212; 99283; 99285

== ENCOUNTER → 2025-04-16 12:54 | Outpatient (BNV) | payer MEDICARE, OTHER, SELFPAY | PROVIDERS: Emergency Provider Internal Medicine; PCP Internal Medicine; Visit Provider Internal Medicine Cardiovascular Disease | DX: R94.31 Abnormal electrocardiogram [ECG] [EKG] (principal); R07.9 Chest pain, unspecified | CPT/HCPCS: 93010 ==

== ENCOUNTER 2025-04-25 09:26 | Emergency (ER) | payer MEDICARE, OTHER, SELFPAY ==
[2025-04-25] VITALS (8 sets, daily range): BP systolic 114–148; BP diastolic 66–99; PULSE 74–90; RESP 14–18; TEMP 36.2–36.8; O2SAT 93–100; BMI 31.5
--- NOTE | ~2025-04-25 | XR_ITS ---
EXAMINATION: XR ABDOMEN KUB CLINICAL INDICATION: Constipation COMPARISON: CT on February 10, 2025 TECHNIQUE: AP view of the abdomen. FINDINGS: Aortic valve prosthesis is noted. Moderate stool is present in the colon and rectum. There is gas in both small and large bowel. There is remodeling of the left superior pubic ramus from healed fracture. There is also associated downward offset of the left pubic bone at the pubic symphysis joint. XR/XR KUB IMPRESSION: Diffuse moderate colonic stool. Electronically signed by: Michael Obando MD 04/25/2025 11:17 AM EDT
--- OUTSIDE RECORDS SUMMARY | 2025-04-25 09:48 | XMS_ITS | Encounter Summary ---
Author Organization [facility] Address [address] [place] [address] Phone Care Team Providers Care Crinkling Machine Operator Name Role Phone Norm Bates Unavailable [phone] Verónica Nielson MD Unavailable [phone] Bandar Renteria MD Unavailable [phone] Luis Milner CNP Unavailable [phone] Matrha Estrada MD Unavailable [phone] David Walton MD Unavailable [phone] eDny Saleh DO Primary Care Provider [phone] Bandar Renteria MD Primary Care Provider Nick Gomez Primary Care Provider + Encounter Details Date Type Department Care Team (Late st Contact Info) Description 12/14/2020 Transcribe Orders [facility] Laboratory [address] [place] [address] Deny Saleh DO [address] [facility] [address] [place], [place] [id number] Social History Tobacco Use Types Packs/Day Years [...] on filedocumented in this encounter Care Teams Crinkling Machine Operator Relationship Specialty Start Date End Date Nunudelfina Deny SawyerDO [address] [place] [address] [email or web address] PCP - General Internal Medicine 08/09/17 01/09/21 Bandar Renteria MD [address] [place] [address] [address] PCP - General Internal Medicine 01/10/21 05/13/23 Nick Gomez PA [address] [place] [address] PCP - General Physician [employer] 05/14/23 Norm Bates PA [address] [place] [address] Historical LMR Provider 06/22/17 2 Verónica Nielson MD [address] [address] [email or web address] Historical LMR Provider 06/22/17 Bandar Renteria MD [address] [place] [address] [address] Historical LMR Provider 06/22/17 2 Luis Milner CNP [address] [place] [address] Historical LMR Provider 06/22/17 09/11/21 Martha Estrada MD [address] [facility], [facility] [place] [address] [email or web address] Historical LMR Provider 06/22/17 David Walton MD [address] [place] [address] Historical LMR Provider 06/22/17 2 documented as of this encounter Additional Source Comments The information contained in this document represents components of the legal health record. It is not the complete legal health record.[facility]
--- OUTSIDE RECORDS SUMMARY | 2025-04-25 09:48 | XMS_ITS | Encounter Summary ---
Author Organization [facility] Address [address] [place] [address] Care Team Providers Care Electrician Yard Name Role Phone Harris Gross MD Primary Care Provider [phone] Encounter Details Date Type Department Care Team (Late st Contact Info) Description 02/13/2025 Lab Requisition [facility] - Main Lab [address] [facility] [place] [address] Harris Gross MD [address] [place], [place] [phone] Vitamin D deficiency, unspecified; Gastrointestinal hemorrhage, unspecified; [...] 6:49 AM EDT) [facility] Vitamin B-12 391 250 - 900 pcg/mL LAB CHEMISTRY METHOD 02/13/2025 10:12 AM EDT [facility] LAB Blood Venous blood specimen / Unknown Venipuncture / Unknown 02/13/2025 6:49 AM EDT 02/13/2025 8:56 AM EDT us Harris Gross MD LAB BLOOD ORDERABLES Final Resul t Performing Organization Address [facility]/ZIP Co de Phone Number [facility] [address] [place] [address], [place] [phone] * Vitamin D 25 hydroxy (02/13/2025 6:49 AM EDT) [facility] Vit D, 25-Hydroxy 57.4 30.0 - 80.0 ng/mL LAB CHEMISTRY METHOD 02/13/2025 11:18 AM EDT [facility] LAB Blood Venous blood specimen / Unknown Venipuncture / Unknown 02/13/2025 6:49 AM EDT 02/13/2025 8:56 AM EDT us Harris Gross MD LAB BLOOD ORDERABLES Final Resul t [facility] [address] [place] [address], [place] [phone] * Thyroid stimulating hormone (02/13/2025 6:49 AM EDT) [facility] TSH 1.12 0.40 - 4.00 mcIU/mL LAB CHEMISTRY METHOD 02/13/2025 11:19 AM EDT [facility] Blood Venous blood specimen / Unknown Venipuncture / Unknown 02/13/2025 6:49 AM EDT 02/13/2025 8:56 AM EDT Harris Gross MD LAB BLOOD ORDERABLES Final Resul t [facility] [address] [place] [address], [place] [phone] * (ABNORMAL) Comprehensive metabolic panel (02/13/2025 6:49 AM EDT) Sodium 140 133 - 145 mmol/L LAB CHEMISTRY METHOD 02/13/2025 10:12 AM [facility] Potassium 3.8 3.5 - 5.5 mmol/L LAB CHEMISTRY METHOD 02/13/2025 10:12 AM [facility] Chloride 105 96 - 110 mmol/L LAB CHEMISTRY METHOD 02/13/2025 10:12 AM [facility] CO2 29 21 - 32 mmol/L LAB CHEMISTRY METHOD 02/13/2025 10:12 AM [facility] Anion Gap 6 3 - 11 LAB CHEMISTRY METHOD 02/13/2025 10:12 AM [facility] Glucose 91 70 - 100 mg/dL LAB CHEMISTRY METHOD 02/13/2025 10:12 AM [facility] BUN 24 5 - 25 mg/dL LAB CHEMISTRY METHOD 02/13/2025 10:12 AM [facility] Creatinine 0.88 0.50 - 1.10 mg/dL LAB CHEMISTRY METHOD 02/13/2025 10:12 AM [facility] eGFR 65 >=60 mL/min/1. 73m2 LAB CHEMISTRY METHOD 02/13/2025 10:12 AM [facility] Comment:Calculation based on the Chronic Kidney Disease Epidemiology Collaboration (CKD-EPI) equation refit without adjustment for race. BUN/Creatinine Ratio 27.3 LAB CHEMISTRY METHOD 02/13/2025 10:12 AM [facility] Calcium 9.2 8.5 - 10.5 mg/dL LAB CHEMISTRY METHOD 02/13/2025 10:12 AM [facility] AST (SGOT) 14 10 - 42 unit/L LAB CHEMISTRY METHOD 02/13/2025 10:12 AM [facility] ALT (SGPT) 14 10 - 60 unit/L LAB CHEMISTRY METHOD 02/13/2025 10:12 AM [facility] Alkaline Phosphatase 88 42 - 121 unit/L LAB CHEMISTRY METHOD 02/13/2025 10:12 AM [facility] Total Protein 5.9(L) 6.0 - 8.0 g/dL LAB CHEMISTRY METHOD 02/13/2025 10:12 AM [facility] Albumin 3.1(L) 3.2 - 5.0 g/dL LAB CHEMISTRY METHOD 02/13/2025 10:12 AM [facility] Total Bilirubin 0.4 0.0 - 1.4 mg/dL LAB CHEMISTRY METHOD 02/13/2025 10:12 AM [facility] Blood Venous blood specimen / Unknown Venipuncture / Unknown 02/13/2025 6:49 AM EDT 02/13/2025 8:56 AM EDT us Harris Gross MD LAB BLOOD ORDERABLES Final Resul t [facility] [address] [place] [address], * (ABNORMAL) Complete blood count (02/13/2025 6:49 AM EDT) WBC 3.3(L) 4.8 - 10.8 K/mcL LAB HEMETOLOGY METHOD 02/13/2025 9:07 AM [facility] RBC 2.90(L) 3.80 - 4.80 M/mcL LAB HEMETOLOGY METHOD 02/13/2025 9:07 AM [facility] Hemoglobin 8.4(L) 11.5 - 16.0 g/dL LAB HEMETOLOGY METHOD 02/13/2025 9:07 AM [facility] Hematocrit 27.2(L) 35.0 - 47.0 % LAB HEMETOLOGY METHOD 02/13/2025 9:07 AM [facility] MCV 94.8 79.0 - 98.0 FL LAB HEMETOLOGY METHOD 02/13/2025 9:07 AM [facility] MCH 29.3 27.0 - 32.0 pcg LAB HEMETOLOGY METHOD 02/13/2025 9:07 AM [facility] MCHC 30.9(L) 32.0 - 37.0 g/dL LAB HEMETOLOGY METHOD 02/13/2025 9:07 AM [facility] RDW 14.9 11.0 - 15.0 % LAB HEMETOLOGY METHOD 02/13/2025 9:07 AM [facility] Platelets 132 130 - 400 K/mcL LAB HEMETOLOGY METHOD 02/13/2025 9:07 AM [facility] MPV 11.8(H) 7.0 - 11.0 FL LAB HEMETOLOGY METHOD 02/13/2025 9:07 AM [facility] NRBC 0.0 <1.0 % LAB HEMETOLOGY METHOD 02/13/2025 9:07 AM [facility] NRBC Absolute 0.00 <0.10 K/mcL LAB HEMETOLOGY METHOD 02/13/2025 9:07 AM [facility] LAB Blood Venous blood specimen / Unknown Venipuncture / Unknown 02/13/2025 6:49 AM EDT 02/13/2025 8:56 AM EDT Harris Gross MD LAB BLOOD ORDERABLES Final Resul t [facility] ([facility]) [facility] [address] [place] [address], documented in this encounter Visit Diagnoses Diagnosis Vitamin D deficiency, unspecified Gastrointestinal hemorrhage, unspecified Aphagia Anorexia documented in this encounter Care Teams Electrician Yard Relationship Specialty Start Date End Date Harris Gross MD [address] [place] [address] [address] [place] [address] PCP - General Geriatric Medicine 02/13/25 documented as of this encounter
--- NOTE | 2025-04-25 09:55 | ED_ITS ---
HPI - General Adult General Chief complaint: Abdominal Pain Stated complaint: Low Abdominal Pain Time Seen by Provider: 04/25/25 09:55 History of Present Illness ED Provider: Kenyon TRIPATHI narrative: The patient is an 84-year-old woman who has a history of frequent ER visits, often for abdominal pain. She presents today complaining of abdominal pain. She says that for about a week and a half she feels that she has been passing gas intermittently. Since last night however she has significantly worsening left-sided abdominal pain and she comes to the emergency room for evaluation of this pain. Her last meal was last night. She has not had a fever. She admits that she might be constipated although she has had some bowel movements in the last few days. She has had no black stools. Her last stool was brown she says. The patient has had CT scans of her abdomen and pelvis 3 times this calendar year. None of the CT scans have showed any acute process. The patient also had several CT scans of her abdomen and pelvis last year with no acute findings. Related Data Home Medications ?Medication ?Instructions ?Recorded ?Confirmed alprazolam 0.25 mg tablet 0.25 mg PO DAILY 03/28/24 citalopram 20 mg tablet (Celexa) 20 mg PO BEDTIME 11/0304/16/25 fluticasone propionate 115 2 puff inhalation BID 01/1404/16/25 mcg-salmeterol 21 mcg/actuation HFA inhaler (Advair HFA) acetaminophen 325 mg tablet 325 mg PO Q4H PRN Pain 05/2904/16/25 bupropion HCl 75 mg tablet 75 mg PO DAILY 04/16/25 citalopram 10 mg tablet 20 mg PO DAILY 04/16/2504/04 Previous Rx's ?Medication ?Instructions ?Recorded albuterol sulfate 90 mcg/actuation 2 puff inhalation Q 4-6H PRN 09/06/24 aerosol inhaler shortness of breath or wheez ing #1 ea mirabegron 25 mg tablet,extended 25 mg PO DAILY 90 day s #90 tabs 11/01/24 release 24 hr (Myrbetriq) cholecalciferol (vitamin D3) 50 50 mcg PO DAILY #90 ta bs 04/07/25 mcg (2,000 unit) tablet (Vitamin D3) fluticasone propionate 50 1 spray intranasal DAILY 30 days 01/19/25 mcg/actuation nasal #16 grams spray,suspension clopidogrel 75 mg tablet 75 mg PO DAILY #90 tabs 03/04 03/28 pantoprazole 40 mg tablet,delayed 40 mg PO DAILY@0630 #90 tabs 04/13/25 release (Protonix) ondansetron 4 mg disintegrating 4 mg PO Q8H PRN nausea and 04/16/25 tablet vomiting #20 tabs polyethylene glycol 3350 17 gram 17 g PO DAILY PRN Con stipation #30 04/16/25 oral powder packet (Miralax) ea polyethylene glycol 3350 17 17 g PO DAILY #238 grams 0 04/25/25 gram/dose oral powder (Miralax) Allergies Allergy/AdvReac Type Severity Reaction Status Date / Time buspirone Allergy Intermediate Rash Verified 04/25/25 09:35 Sulfa (Sulfonamide Allergy Intermediate RASH Verified 04/25/25 09:35 Antibiotics) cefuroxime Allergy Unknown Unknown Verified 04/25/25 09:35 garlic (GARLIC) Allergy Unknown PER H&P Verified 04/25/25 09:35 metronidazole (From FLAGYL) Allergy Unknown OCULAR Verified 04/25/25 09:35 MIGRAINES penicillamine Allergy Unknown Unknown Verified 04/25/25 09:35 ciprofloxacin AdvReac Intermediate neuropathic Verified 04/25/25 09:35 pain lisinopril AdvReac Intermediate Cough Verified 04/25/25 09:35 nitrofurantoin AdvReac Mild GI side Verified 04/25/25 09:35 effects cefuroxime Allergy Intermediate wheezy Uncoded 04/25/25 09:35 cough/itch flagyl Allergy Unknown Unknown Uncoded 04/25/25 09:35 From KEFLEX Allergy Unknown RASH Uncoded 04/25/25 09:35 Metoprolol Tartrate Allergy Unknown Unknown Uncoded 04/25/25 09:35 Sulfacet-R Allergy Unknown Unknown Uncoded 04/25/25 09:35 Review of Systems 2 Review of Systems: Yes all other systems are reviewed and are negative PMFSH Past Medical History Medical History Annual wellness visit Acute diverticulitis LLQ abdominal pain Contusion of right lower leg Otitis media Cough Bronchitis Pelvic pain Chronic cough Elevated IgE level Status post fall Hip pain Post-menopausal URI (upper respiratory infection) Sensation of pressure in bladder area Chest pain Elevated blood sugar Oral candidiasis GERD (gastroesophageal reflux disease) Pulmonary nodule HTN (hypertension) Heart palpitations Constipation Breast cancer screening Breast pain, left Elevated vitamin B12 level Neck muscle spasm Strain of neck muscle Low back pain Pubic ramus fracture Sore throat Skin tear of upper arm without complication Head injury, acute, without loss of consciousness Fall Dizziness Medication noncompliance due to cognitive impairment RLQ abdominal pain Sinusitis Flu syndrome Precordial chest pain Atypical chest pain Cold intolerance Former smoker Abnormal lung sounds Fever Bilateral calf pain Nausea Left lower quadrant abdominal pain Dysuria Fatigue Lower extremity weakness Aortic stenosis Obstipation Dark stools Lower abdominal pain Gastroenteritis Neck pain on right side Back pain Rhinitis Elevated BP without diagnosis of hypertension Non-rheumatic aortic stenosis Diverticulitis GERD (gastroesophageal reflux disease) Cat scratch Cat bite Epigastric discomfort Diarrhea Neuropathy Arthritis GERD (gastroesophageal reflux disease) HTN (hypertension) Irritable bowel Heart murmur Surgical History S/P AVR S/P TAVR (transcatheter aortic valve replacement) Hx of esophagogastroduodenoscopy Hx of colonoscopy History of tonsillectomy History of appendectomy Family History Family History Father No problems noted. Mother No problems noted. Social History Social History Household Members: Children Housing: House Are you a primary cardiac care nurse to a significant other at home: No Do you presently have visiting nurse or other home services: No Alcohol intake: never Comment: Pt still ambulate on her own even though alarms are on Patient Tobacco Use Status: Former Tobacco user Tobacco use type: Cigarette Years Smoked: 55 e-Cigarette/Vaping Use: Never Used Second Hand Smoke Exposure: Yes Advance Directives Date on File: 03/28/23 service: No Current occupational status: retired Cognitive needs: No Hearing needs: No Vision needs: Yes (glasses) Physical Exam ED Vital Signs: Vital Signs - 24 hr 04/25/25 09:32 04/25/25 10:00 04/25/25 12:00 Temperature 97.1 F 98.0 F 98.2 F Pulse Rate 90 74 82 Respiratory Rate 16 15 15 Blood Pressure 114/66 116/79 148/78 H Pulse Oximetry 94 99 100 Oxygen Delivery Method Room Air Room Air 04/25/25 13:58 Temperature 98.2 F Pulse Rate 80 Respiratory Rate 14 Blood Pressure 140/70 H Pulse Oximetry 99 Oxygen Delivery Method Room Air BMI result Body Mass Index 31.5 Const Other: The patient is an 84-year-old woman who was awake and alert. She is pleasant and cooperative. She does not appear in obvious distress. Orientation/consciousness: patient oriented x3 HENMT Other: The face is symmetrical. ?Mucous membranes moist. Eyes Other: Pupils are round equal, conjunctivae are clear, extraocular movements intact General: appearance normal, both eyes and all related structures Neck Neck: Yes normal visual inspection, Yes full ROM and Yes no JVD Resp Effort & Inspection: normal respiratory effort Auscultation: clear to auscultation bilaterally Cardio Rate: regular rate Rhythm: regular rhythm Heart sounds: S1 normal heart sound present and S2 normal heart sound present GI Other: The abdomen is soft and nontender. Rectal exam revealed a small amount of brown stool. No fecal impaction. No melena Skin Other: The skin is dry and unremarkable Neuro General: patient oriented x3, gait normal, tone normal, moves all extremities, no focal motor deficits and CN's II-XI intact bilaterally Extrem Other: There is no calf swelling or tenderness. No asymmetry. No peripheral edema. Medications Administered Discontinued Medications Generic Name Dose Route Start Last Admin Trade Name Freq PRN Reason Stop Dose Admin Magnesium Citrate 300 ml 04/25/25 14:44 04/25/25 15:01 Magnesium Citrate 300 Ml Solution PO 04/25/25 14:45 300 ml ONCE ONE Administration Ondansetron HCl 4 mg 04/25/25 14:03 04/25/25 14:11 Ondansetron Odt 4 Mg Tab.Rapdis TRANSLINGU 04/25/25 14:04 4 mg ONCE ONE Administration Sodium Biphosphate/Sodium Phosphate 133 ml 04/25/25 12:30 04/25/25 12:45 Sodium Phosphate,[place]-Dibasic 133 Ml Enema ID 04/25/25 12:31 133 ml ONCE ONE Administration Medical Decision Making Medical Decision Making [facility] Narrative: The patient is an 84-year-old female who presents complaining of abdominal pain. She has a history of frequent emergency room visits for abdominal pain and has had several CAT scans this year and last year without acute findings. Her white count today is low at 3.0. This is typical of previous white counts. Her hemoglobin is 7.9. This is slightly lower than recent hemoglobins but she tends to be anemic. Platelet count is 143 which is similar to previous values. She has no left shift on her white count differential. The patient's basic metabolic panel shows BUN of 27. This is somewhat elevated compared to previous. Her creatinine is 0.93 which is close to baseline. A KUB shows significant colonic stool. Rectal exam revealed no fecal impaction. It also showed brown stool. No suggestion of an upper GI bleed. The patient was given a Fleet enema. She subsequently had copious stool output, none of which looked melenic. At that point I felt the patient could be discharged with a bottle of magnesium citrate that she may take it home and also a prescription for polyethylene glycol which you may use on a daily basis. The patient was advised to drink lot of fluids. She should follow up soon with the primary care doctor to discuss her lab results today and her constipation and her frequent ER visits. She should return if worse. Lab Data 04/25/25 10:37 04/25/25 10:37 Labs: Lab Results 04/25/25 Range/Units 10:37 WBC 3.0 L (4.8-10.8) X10*3/uL RBC 2.72 L (4.20-5.50) X10*6/uL Hgb 7.9 L (12.0-16.0) g/dl Hct 24.7 L (37.0-47.0) % MCV 90.8 (80.0-98.0) fL MCH 29.0 (27.0-33.0) pg MCHC 32.0 (31.0-35.0) g/dl RDW 15.2 (11.0-16.0) % Plt Count 143 L (160-400) X10*3/uL MPV 10.6 (9.4-12.3) fL Immature Gran % (Auto) 0.3 (0.0-0.4) % Neut % (Auto) 70.2 (45-73) % Lymph % (Auto) 14.9 L (20-40) % [place] % (Auto) 9.9 (2-11) % Eos % (Auto) 4.0 (0-4) % Baso % (Auto) 0.7 (0-2) % Lymph # (Auto) 0.5 L (1.2-4.9) X10*3/uL [place] # (Auto) 0.3 (0.1-1.2) X10*3/uL Eos # (Auto) 0.1 (0.0-0.4) X10*3/uL Baso # (Auto) 0.0 (0.0-0.2) X10*3/uL Abs Immat Gran (auto) 0.01 (0.00-0.03) X10*3/uL Absolute Neuts (auto) 2.1 (2.0-8.3) x10*3/uL Absolute Nucleated RBC 0.000 (0.0-0.012) X10*3/uL Nucleated RBC % (auto) 0.0 (0.0-0.2) /100WBC Sodium 139 (135-145) mmol/L Potassium 4.7 (3.3-5.1) mmol/L Chloride 104 (96-108) mmol/L Carbon Dioxide 30 H (22-29) mmol/L Anion Gap 10 L (12-20) BUN 27 H (9-16) mg/dL Creatinine 0.93 (0.5-1.4) mg/dL Estim Creat Clear Calc 50.4 Estimated GFR 57 Random Glucose 91 (60-115) mg/dL Calcium 9.4 (8.4-10.2) mg/dL Total Bilirubin 0.3 (0.0-1.0) mg/dL Direct Bilirubin 0.1 (0.0-0.5) mg/dL AST 24 (5-31) U/L ALT 13 (0-31) U/L Alkaline Phosphatase 89 (39-117) U/L C-Reactive Protein < 0.04 (< or = 0.50) mg/dL Total Protein 6.5 (6.5-8.0) g/dL Albumin 4.0 (3.5-5.0) g/dL Lipase 25 (8-78) U/L Discharge Plan Discharge Clinical Impression: Abdominal pain Constipation Qualifiers: Constipation type: slow transit constipation Qualified Code(s): K59.01 - Slow transit constipation Patient Disposition: Home, Self-Care Additional Instructions: I think that your abdominal pain is related to constipation. Please drink the bottle of magnesium citrate over the next 24 hours. My hope is that this will help clean out your colon. Since you seemed to have some kind of a predisposition to constipation I think it would be good for you to take a dose of polyethylene glycol (brand name MiraLax) every day. Please make sure you take a lot of fluids. It is also important that you follow up with your regular doctor to discuss this pain. Please call Dr. Garcia's office for a prompt follow up appointment. Return to the emergency room if you feel significantly worse. Prescriptions: New polyethylene glycol 3350 [Miralax] 17 gram/dose powder 17 g PO DAILY Qty: 238 0RF No Action albuterol sulfate 90 mcg/actuation HFA aerosol inhaler 2 puff inhalation Q4-6H PRN (Reason: shortness of breath or wheezing) Qty: 1 2RF cholecalciferol (vitamin D3) [Vitamin D3] 50 mcg (2,000 unit) tablet 50 mcg PO DAILY Qty: 90 3RF fluticasone propionate 50 mcg/actuation spray,suspension 1 spray intranasal DAILY 30 Days Qty: 16 0RF clopidogrel 75 mg tablet 75 mg PO DAILY Qty: 90 0RF pantoprazole [Protonix] 40 mg tablet,delayed release (DR/EC) 40 mg PO DAILY@0630 Qty: 90 0RF alprazolam 0.25 mg Tablet 0.25 mg PO DAILY acetaminophen 325 mg Tablet 325 mg PO Q4H PRN (Reason: Pain) fluticasone propion-salmeterol [Advair HFA] 115-21 mcg/actuation HFA aerosol inhaler 2 puff inhalation BID bupropion HCl 75 mg tablet 75 mg PO DAILY citalopram 10 mg tablet 20 mg PO DAILY ondansetron 4 mg tablet,disintegrating 4 mg PO Q8H PRN (Reason: nausea and vomiting) Qty: 20 0RF polyethylene glycol 3350 [Miralax] 17 gram powder in packet 17 g PO DAILY PRN (Reason: Constipation) Qty: 30 0RF mirabegron [Myrbetriq] 25 mg tablet extended release 24 hr 25 mg PO DAILY 90 Days Qty: 90 3RF citalopram [Celexa] 20 mg tablet 20 mg PO BEDTIME Interventions: ED Discharge Assessment Last Done: 04/25/25 16:56 Discharge Date/Time: 04/25/25 16:57 Print Language: Kyrgyz
[2025-04-25 10:44] LABS: MANUAL DIFF FLAG NO
[2025-04-25 10:46] LABS: Hematocrit 24.7 % (37.0-47.0); Hemoglobin 7.9 g/dl (12.0-16.0); Imm Gran Abs Auto 0.01 X10*3/uL (0.00-0.03); Imm Gran Pct Auto 0.3 % (0.0-0.4); Lymphocytes Absolute Auto 0.5 X10*3/uL (1.2-4.9); Mean Corpuscular HGB Conc 32.0 g/dl (31.0-35.0); Mean Corpuscular Hemoglobin 29.0 pg (27.0-33.0); Mean Corpuscular Volume 90.8 fL (80.0-98.0); NRBC Abs Auto 0.000 X10*3/uL (0.0-0.012); NRBC Pct Auto 0.0 /100WBC (0.0-0.2); Platelet Count 143 X10*3/uL (160-400); Red Blood Count 2.72 X10*6/uL (4.20-5.50); White Blood Count 3.0 X10*3/uL (4.8-10.8)
[2025-04-25 11:05] LABS: Alanine Aminotransferase 13 U/L (0-31); Albumin Level 4.0 g/dL (3.5-5.0); Alkaline Phosphatase 89 U/L (39-117); Anion Gap 10 (12-20); Aspartate Amino Transferase 24 U/L (5-31); Blood Urea Nitrogen 27 mg/dL (9-16); Calcium 9.4 mg/dL (8.4-10.2); Carbon Dioxide 30 mmol/L (22-29); Chloride 104 mmol/L (96-108); Creatinine Clr Calc Pharmacy 50.4; Estimated Glomerular Filt Rate 57; Lipase 25 U/L (8-78); Potassium 4.7 mmol/L (3.3-5.1); Sodium 139 mmol/L (135-145); Total Protein 6.5 g/dL (6.5-8.0)
--- NOTE | 2025-04-25 14:02 | PC.NURSE ---
Pt assisted to commode, able to have moderate sized soft brown stool s/p enema administration. Pt reporting cramps and nausea after bowel movement. MD notified and new orders in place.
--- NOTE | 2025-04-25 16:08 | PC.NURSE ---
Spoke with pt son who will be picking pt up for d/c. Reports he is on his way to picker tender, pt continues to require BSC for frequent bowel movements after enema admin. Requested to wait for son near commode.
== END 2025-04-25 16:57 | disposition home or self-care (01) ==
PROVIDERS: Emergency Provider Emergency Medicine; PCP Internal Medicine
DX: K59.01 Slow transit constipation (principal); R10.2 Pelvic and perineal pain; Z79.899 Other long term (current) drug therapy; Z87.891 Personal history of nicotine dependence
CPT/HCPCS: 36415; 74018; 80048; 80076; 83690; 85025; 86140; 99284

== ENCOUNTER → 2025-04-25 10:19 | Outpatient (BNV) | payer MEDICARE, OTHER, SELFPAY | PROVIDERS: Emergency Provider Emergency Medicine; PCP Internal Medicine; Visit Provider Radiology Diagnostic Radiology | DX: K59.00 Constipation, unspecified (principal) | CPT/HCPCS: 74018 ==

== ENCOUNTER 2025-04-30 11:40 | Emergency (ER) | payer MEDICARE, OTHER, SELFPAY ==
--- NOTE | ~2025-04-30 | XR_ITS ---
EXAMINATION: XR ABDOMEN 1 VIEW (KUB) HISTORY: abd pain, constipation COMPARISON: Comparison is made with the prior examination dated 04/25/2025. FINDINGS: Two supine views of the abdomen are submitted. The bowel gas pattern is unremarkable, without evidence of mechanical obstruction. There is a moderate to large amount of stool throughout the colon. No abnormal calcifications are identified. There are no abnormal soft tissue masses. There is an old healed fracture deformity of the left symphysis. XR/XR KUB IMPRESSION: Moderate to large amount of stool throughout the colon. Electronically signed by: Anatoliy Elias MD 04/30/2025 12:50 PM EDT
[2025-04-30 11:54] VITALS: BP 130/70; PULSE 88; RESP 18; TEMP 36.7; O2SAT 96; BMI 27.0
--- NOTE | 2025-04-30 11:54 | ED_ITS ---
HPI - Abdominal Pain General Chief Complaint: Abdominal Pain Stated Complaint: Stomach Pain Time Seen by Provider: 04/30/25 16:57 Source: patient and family (patient's son) Mode of arrival: wheelchair Limitations: no limitations History of Present Illness ED Provider: Xuan Soliman PA-C HPI narrative: Patient is an 84 year old assigned female at with a history of anxiety, HTN, aortic stenosis status post TAVR, COPD, prior CVA, arthritis, chronic constipation, and GERD presenting to the emergency department today with continued constipation. 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 Patient denies any other complaints at this time. Related Data Home Medications ?Medication ?Instructions ?Recorded ?Confirmed alprazolam 0.25 mg tablet 0.25 mg PO DAILY 03/28/24 citalopram 20 mg tablet (Celexa) 20 mg PO BEDTIME 11/0304/16/25 fluticasone propionate 115 2 puff inhalation BID 01/1404/16/25 mcg-salmeterol 21 mcg/actuation HFA inhaler (Advair HFA) acetaminophen 325 mg tablet 325 mg PO Q4H PRN Pain 05/2904/16/25 bupropion HCl 75 mg tablet 75 mg PO DAILY 04/16/25 citalopram 10 mg tablet 20 mg PO DAILY 04/16/2504/04 Previous Rx's ?Medication ?Instructions ?Recorded albuterol sulfate 90 mcg/actuation 2 puff inhalation Q 4-6H PRN 09/06/24 aerosol inhaler shortness of breath or wheez ing #1 ea mirabegron 25 mg tablet,extended 25 mg PO DAILY 90 day s #90 tabs 11/01/24 release 24 hr (Myrbetriq) cholecalciferol (vitamin D3) 50 50 mcg PO DAILY #90 ta bs 12/09/24 mcg (2,000 unit) tablet (Vitamin D3) fluticasone propionate 50 1 spray intranasal DAILY 30 days 01/19/25 mcg/actuation nasal #16 grams spray,suspension clopidogrel 75 mg tablet 75 mg PO DAILY #90 tabs 03/04 03/28 pantoprazole 40 mg tablet,delayed 40 mg PO DAILY@06 #90 tabs 04/13/25 release (Protonix) ondansetron 4 mg disintegrating 4 mg PO Q8H PRN nausea and 04/16/25 tablet vomiting #20 tabs polyethylene glycol 3350 17 gram 17 g PO DAILY PRN Con stipation #30 04/16/25 oral powder packet (Miralax) ea polyethylene glycol 3350 17 17 g PO DAILY #238 grams 0 04/25/25 gram/dose oral powder (Miralax) magnesium citrate (OneLAX 150 ml PO DAILY #296 mL 04/05 03/28 Magnesium Citrate oral solution) Allergies Allergy/AdvReac Type Severity Reaction Status Date / Time buspirone Allergy Intermediate Rash Verified 04/30/25 11:57 Sulfa (Sulfonamide Allergy Intermediate RASH Verified 04/30/25 11:57 Antibiotics) cefuroxime Allergy Unknown Unknown Verified 04/30/25 11:57 garlic (GARLIC) Allergy Unknown PER H&P Verified 04/30/25 11:57 metronidazole (From FLAGYL) Allergy Unknown OCULAR Verified 04/30/25 11:57 MIGRAINES penicillamine Allergy Unknown Unknown Verified 04/30/25 11:57 ciprofloxacin AdvReac Intermediate neuropathic Verified 04/30/25 11:57 pain lisinopril AdvReac Intermediate Cough Verified 04/30/25 11:57 nitrofurantoin AdvReac Mild GI side Verified 04/30/25 11:57 effects cefuroxime Allergy Intermediate wheezy Uncoded 04/25/25 09:35 cough/itch flagyl Allergy Unknown Unknown Uncoded 04/25/25 09:35 From KEFLEX Allergy Unknown RASH Uncoded 04/25/25 09:35 Metoprolol Tartrate Allergy Unknown Unknown Uncoded 04/25/25 09:35 Sulfacet-R Allergy Unknown Unknown Uncoded 04/25/25 09:35 Review of Systems Constitutional: Reports as per HPI Eyes: Reports as per HPI Reports as per HPI Cardiovascular: Reports as per HPI Respiratory: Reports as per HPI Gastrointestinal: Reports as per HPI Genitourinary: Reports as per HPI Musculoskeletal: Reports as per HPI Skin/Breast: Reports as per HPI Reports as per HPI Psychiatric: Reports as per HPI Endocrine: Reports as per HPI Hematologic/Lymphatic: Reports as per HPI Allergic/Immunologic: Reports as per HPI [facility] Past Medical History Attestation statement: The following information was validated with the patient. (all information validated with the patient's son) Source: old records reviewed, obtained from family (patient's son provided additional history and confirmed the history provided by the patient. ) and nursing notes reviewed Medical History Annual wellness visit Acute diverticulitis LLQ abdominal pain Contusion of right lower leg Otitis media Cough Bronchitis Pelvic pain Chronic cough Elevated IgE level Status post fall Hip pain Post-menopausal URI (upper respiratory infection) Sensation of pressure in bladder area Chest pain Elevated blood sugar Oral candidiasis GERD (gastroesophageal reflux disease) Pulmonary nodule HTN (hypertension) Heart palpitations Constipation Breast cancer screening Breast pain, left Elevated vitamin B12 level Neck muscle spasm Strain of neck muscle Low back pain Pubic ramus fracture Sore throat Skin tear of upper arm without complication Head injury, acute, without loss of consciousness Fall Dizziness Medication noncompliance due to cognitive impairment RLQ abdominal pain Sinusitis Flu syndrome Precordial chest pain Atypical chest pain Cold intolerance Former smoker Abnormal lung sounds Fever Bilateral calf pain Nausea Left lower quadrant abdominal pain Dysuria Fatigue Lower extremity weakness Aortic stenosis Obstipation Dark stools Lower abdominal pain Gastroenteritis Neck pain on right side Back pain Rhinitis Elevated BP without diagnosis of hypertension Non-rheumatic aortic stenosis Diverticulitis GERD (gastroesophageal reflux disease) Cat scratch Cat bite Epigastric discomfort Diarrhea Neuropathy Arthritis GERD (gastroesophageal reflux disease) HTN (hypertension) Irritable bowel Heart murmur Surgical History S/P AVR S/P TAVR (transcatheter aortic valve replacement) Hx of esophagogastroduodenoscopy Hx of colonoscopy History of tonsillectomy History of appendectomy Family History Family History Father No problems noted. Mother No problems noted. Social History Social History Household Members: Children Housing: House Are you a primary rn complex care to a significant other at home: No Do you presently have visiting nurse or other home services: No Alcohol intake: never Comment: Pt still ambulate on her own even though alarms are on Patient Tobacco Use Status: Former Tobacco user Tobacco use type: Cigarette Years Smoked: 55 e-Cigarette/Vaping Use: Never Used Second Hand Smoke Exposure: Yes Advance Directives: Yes Advance Directives on File: Yes Advance Directives Date on File: 03/28/23 Do you have a plan to hurt others: No Plan service: No Current occupational status: retired Cognitive needs: No Hearing needs: No Vision needs: Yes (glasses) Physical Exam ED Vital Signs: Vital Signs - 24 hr 04/30/25 11:54 04/30/25 17:02 04/30/25 17:13 Temperature 98.1 F 98.1 F 98.1 F Pulse Rate 88 84 84 Respiratory Rate 18 16 16 Blood Pressure 130/70 126/70 126/70 Pulse Oximetry 96 94 94 Oxygen Delivery Method Room Air Room Air Room Air BMI result Body Mass Index 27.0 Const General: cooperative, no acute distress, alert and awake Nutritional Appearance: well nourished Orientation/consciousness: patient oriented x3 HENMT Head: Yes normal to inspection and Yes atraumatic Ears: hearing grossly normal bilaterally and external ears normal General nose exam: Normal external nose present, no nasal discharge noted and no epistaxis Face and sinus: Yes normal facial exam, No abrasion and No laceration Mouth: Normal oral and palatal mucosa present, no drooling and no muffled voice Eyes General: appearance normal, both eyes and all related structures Periorbital: periorbital findings normal Eyelids: Yes eyelids normal Conjunctivae: conjunctivae normal Pupils: Equal, round and reactive pupils present EOM: EOMs intact bilaterally Neck Neck: Yes normal visual inspection and Yes full ROM Resp Effort & Inspection: normal respiratory effort and able to speak in complete sentences Neuro General: patient oriented x3, moves all extremities and CN's II-XI intact bilaterally Cranial nerves: Yes Equal, round and reactive pupils present Cognition (Neuro): normal cognition Extrem General: Yes normal to inspection, Yes full ROM and Yes capillary refill normal Psych Appearance: grossly normal Mental Status: mental status grossly normal Affect: normal affect Attitude: cooperative Thought process: Normal thought process present Thought content: Normal thought content present Insight: Good insight present (Psych) Course Course Course Narrative: This is an RME: Additional HPI, ROS, PE not included below will be deferred to primary provider. RME assessment and note performed by: Marge Zuniga PA-C 84-year-old female with past medical history significant for frequent ER visits - often for abdominal pain, hypertension, aortic valve replacement, severe generalized anxiety disorder, anemia, who presents to the ER with complaints of abdominal pain. Pt was seen here on 04/25 for the same and had a fleet enema. Discharged home with mag citrate which she admits she did not take. Reporting pain worsened this morning. Still passing gas. Plan: Labs, KUB xray Medical Decision Making Medical Decision Making [facility] Narrative: Patient is an 84 year old assigned female at with a history of anxiety, HTN, aortic stenosis status post TAVR, COPD, prior CVA, arthritis, chronic constipation, and GERD presenting to the emergency department today with continued constipation. Patient's physical exam was unremarkable. Patient's blood work was unremarkable. Patient's KUB x-ray showed stool but no evidence of obstruction or a rectal stool ball. I explained my physical exam findings as well as all test results to the patient and the patient's son. I answered all questions asked by the patient and the patient's son. I had an extensive conversation with the patient that she should take what was previously prescribed, as prescribed (magnesium citrate). 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 I stressed the importance of the patient taking her medication as directed (either prescribed or as the over the counter packaging recommends). I stressed the importance of the patient following up with her primary care provider. I stressed the importance of the patient returning to the emergency department immediately if her symptoms were to worsen or if she were to develop any dizziness, shortness of breath, difficulty breathing, chest pain, blurry vision, loss of vision, nausea, vomiting, abdominal pain, fever, chills, back pain, or any other complaints. Patient and the patient's son verbalized agreement and understanding with this treatment plan and discharge. Differential Diagnosis Differential Diagnoses: The differential diagnosis associated with the presentation includes Constipation Chronic constipation Admission/Observation Consideration of admission/observation: Escalation of care including admission/observation considered Patient would have been admitted to the hospital had her work up had any findings where hospital admission was appropriate and her clinical presentation warranted hospital admission. Lab Data [facility] Lab Attestation statement: I reviewed the patient's lab results. My interpretation of these results are in the [facility] Rationale portion of this note. 04/30/25 12:59 04/30/25 12:59 Labs: Lab Results 04/30/25 Range/Units 12:59 WBC 3.6 L (4.8-10.8) X10*3/uL RBC 2.84 L (4.20-5.50) X10*6/uL Hgb 8.2 L (12.0-16.0) g/dl Hct 25.7 L (37.0-47.0) % MCV 90.5 (80.0-98.0) fL MCH 28.9 (27.0-33.0) pg MCHC 31.9 (31.0-35.0) g/dl RDW 14.7 (11.0-16.0) % Plt Count 154 L (160-400) X10*3/uL MPV 10.5 (9.4-12.3) fL Immature Gran % (Auto) 0.6 H (0.0-0.4) % Neut % (Auto) 73.9 H (45-73) % Lymph % (Auto) 12.6 L (20-40) % [place] % (Auto) 9.5 (2-11) % Eos % (Auto) 2.8 (0-4) % Baso % (Auto) 0.6 (0-2) % Lymph # (Auto) 0.5 L (1.2-4.9) X10*3/uL [place] # (Auto) 0.3 (0.1-1.2) X10*3/uL Eos # (Auto) 0.1 (0.0-0.4) X10*3/uL Baso # (Auto) 0.0 (0.0-0.2) X10*3/uL Abs Immat Gran (auto) 0.02 (0.00-0.03) X10*3/uL Absolute Neuts (auto) 2.7 (2.0-8.3) x10*3/uL Absolute Nucleated RBC 0.000 (0.0-0.012) X10*3/uL Nucleated RBC % (auto) 0.0 (0.0-0.2) /100WBC Sodium 137 (135-145) mmol/L Potassium 4.5 (3.3-5.1) mmol/L Chloride 103 (96-108) mmol/L Carbon Dioxide 28 (22-29) mmol/L Anion Gap 11 L (12-20) BUN 18 H (9-16) mg/dL Creatinine 1.01 (0.5-1.4) mg/dL Estim Creat Clear Calc 43.1 Estimated GFR 52 Random Glucose 92 (60-115) mg/dL Calcium 9.5 (8.4-10.2) mg/dL Total Bilirubin 0.4 (0.0-1.0) mg/dL AST 22 (5-31) U/L ALT 18 (0-31) U/L Alkaline Phosphatase 94 (39-117) U/L Total Protein 6.9 (6.5-8.0) g/dL Albumin 4.2 (3.5-5.0) g/dL Independent Interpretation I performed an independent interpretation of an: Plain X-Ray Interpretation: My interpretation is in agreement with the radiologist's impression of this imaging study. L EXAMINATION: XR ABDOMEN 1 VIEW (KUB) HISTORY: abd pain, constipation COMPARISON: Comparison is made with the prior examination dated 04/25/2025. FINDINGS: Two supine views of the abdomen are submitted. The bowel gas pattern is unremarkable, without evidence of mechanical obstruction. There is a moderate to large amount of stool throughout the colon. No abnormal calcifications are identified. There are no abnormal soft tissue masses. There is an old healed fracture deformity of the left symphysis. XR/XR KUB IMPRESSION: Moderate to large amount of stool throughout the colon. Electronically signed by: Anatoliy Elias MD 04/30/2025 12:50 PM EDT Dictated By: Anatoliy Elias MD Signed By: Electronically signed by Anatoliy Elias MD 04/30/25 1250 Radiology Impression Discussion of test interpretation with radiology: I have reviewed the radiologist's reading. Independent Historian Clinical information obtained from an independent historian. History obtained from or confirmed by: Other (patient's son provided additional history and confirmed the history provided by the patient. ) External Record Review External record reviewed: Inpatient record Discharge Plan Discharge Clinical Impression: Chronic abdominal pain Constipation Qualifiers: Constipation type: slow transit constipation Qualified Code(s): K59.01 - Slow transit constipation Patient Disposition: Home, Self-Care Instructions: Constipation (DC) Additional Instructions: PLEASE TAKE YOUR MAGNESIUM CITRATE DIRECTED SO YOU CAN HAVE BOWEL MOVEMENTS AND RELIEVE YOUR CONSTIPATION / CHRONIC ABDOMINAL PAIN. IF you are prescribed home medications and/or you are taking over the counter medications at home - it is very important you continue to do so as prescribed / directed unless told otherwise. Follow up with your primary care provider. Return to the emergency department immediately if your symptoms worsen or if you develop any numbness, tingling, dizziness, shortness of breath, difficulty breathing, chest pain, blurry vision, loss of vision, nausea, vomiting, abdominal pain, fever, chills, back pain, or any other complaints. Please see the information below about our Patient Portal. If you are not yet enrolled in the [facility] Patient Portal, you will receive an enrollment email invitation following your visit to any [facility] setting. You may also self-enroll in the Patient Portal by visiting our website: [email or web address] The following information is required to access the Patient Portal: - Your [facility] Medical Record Number - Your personal home email address (must match what is in your electronic medical record, Registration staff can assist with this) - Name - Date of Capabilities of the Patient Portal: - Message some providers - View upcoming appointments - Access your health summary, medical history, and visit history - View current conditions and allergies - View procedure and lab results - View your medications, including guidelines, side effects, and precautions - Complete pre-appointment questionnaires requested by your provider - Ready summary reports of your office visits and procedures To access the Patient Portal Mobile [employer], follow these directions: - Search [employer] in the Asya Store or Google [employer] Store - Download the Asya - Search for [facility] - Enter your login/password Prescriptions: New magnesium citrate [OneLAX Magnesium Citrate] Solution 150 ml PO DAILY Qty: 296 0RF Rx Instructions: DRINK 1 HALF OF THE BOTTLE AND AWAIT RESULTS. IF NOTHING AFTER 2 HOURS - DRINK THE OTHER HALF OF THE BOTTLE. No Action albuterol sulfate 90 mcg/actuation HFA aerosol inhaler 2 puff inhalation Q4-6H PRN (Reason: shortness of breath or wheezing) Qty: 1 2RF cholecalciferol (vitamin D3) [Vitamin D3] 50 mcg (2,000 unit) tablet 50 mcg PO DAILY Qty: 90 3RF fluticasone propionate 50 mcg/actuation spray,suspension 1 spray intranasal DAILY 30 Days Qty: 16 0RF clopidogrel 75 mg tablet 75 mg PO DAILY Qty: 90 0RF pantoprazole [Protonix] 40 mg tablet,delayed release (DR/EC) 40 mg PO DAILY@0630 Qty: 90 0RF alprazolam 0.25 mg Tablet 0.25 mg PO DAILY acetaminophen 325 mg Tablet 325 mg PO Q4H PRN (Reason: Pain) polyethylene glycol 3350 [Miralax] 17 gram/dose powder 17 g PO DAILY Qty: 238 0RF fluticasone propion-salmeterol [Advair HFA] 115-21 mcg/actuation HFA aerosol inhaler 2 puff inhalation BID bupropion HCl 75 mg tablet 75 mg PO DAILY citalopram 10 mg tablet 20 mg PO DAILY ondansetron 4 mg tablet,disintegrating 4 mg PO Q8H PRN (Reason: nausea and vomiting) Qty: 20 0RF polyethylene glycol 3350 [Miralax] 17 gram powder in packet 17 g PO DAILY PRN (Reason: Constipation) Qty: 30 0RF mirabegron [Myrbetriq] 25 mg tablet extended release 24 hr 25 mg PO DAILY 90 Days Qty: 90 3RF citalopram [Celexa] 20 mg tablet 20 mg PO BEDTIME Referrals: Jose,Huma Leyva MD [Primary Care Provider, Internal Medicine] Interventions: ED Discharge Assessment Last Done: 04/30/25 17:13 Discharge Date/Time: 04/30/25 17:14 Print Language: Mongolian
[2025-04-30 13:03] LABS: MANUAL DIFF FLAG NO
[2025-04-30 13:04] LABS: Hematocrit 25.7 % (37.0-47.0); Hemoglobin 8.2 g/dl (12.0-16.0); Imm Gran Abs Auto 0.02 X10*3/uL (0.00-0.03); Imm Gran Pct Auto 0.6 % (0.0-0.4); Lymphocytes Absolute Auto 0.5 X10*3/uL (1.2-4.9); Mean Corpuscular HGB Conc 31.9 g/dl (31.0-35.0); Mean Corpuscular Hemoglobin 28.9 pg (27.0-33.0); Mean Corpuscular Volume 90.5 fL (80.0-98.0); NRBC Abs Auto 0.000 X10*3/uL (0.0-0.012); NRBC Pct Auto 0.0 /100WBC (0.0-0.2); Platelet Count 154 X10*3/uL (160-400); Red Blood Count 2.84 X10*6/uL (4.20-5.50); White Blood Count 3.6 X10*3/uL (4.8-10.8)
[2025-04-30 13:19] LABS: Alanine Aminotransferase 18 U/L (0-31); Albumin Level 4.2 g/dL (3.5-5.0); Alkaline Phosphatase 94 U/L (39-117); Anion Gap 11 (12-20); Aspartate Amino Transferase 22 U/L (5-31); Blood Urea Nitrogen 18 mg/dL (9-16); Calcium 9.5 mg/dL (8.4-10.2); Carbon Dioxide 28 mmol/L (22-29); Chloride 103 mmol/L (96-108); Creatinine Clr Calc Pharmacy 43.1; Estimated Glomerular Filt Rate 52; Potassium 4.5 mmol/L (3.3-5.1); Sodium 137 mmol/L (135-145); Total Protein 6.9 g/dL (6.5-8.0)
[2025-04-30 17:02] VITALS: BP 126/70; PULSE 84; RESP 16; TEMP 36.7; O2SAT 94
--- OUTSIDE RECORDS SUMMARY | 2025-04-30 17:09 | XMS_ITS | Encounter Summary ---
Author Organization [facility] Address [address] [place] [address] Care Team Providers Care Unit Coordinator Name Role Phone Harris Gross MD Primary Care Provider Encounter Details Date Type Department Care Team (Late st Contact Info) Description 02/13/2025 Lab Requisition [facility] - Main Lab [address] [facility] [place] [address] Harris Gross MD [address] [place], [place] [id number] Vitamin D deficiency, unspecified; Gastrointestinal hemorrhage, unspecified; [...] * Vitamin B12 (02/13/2025 6:49 AM EDT) [facility] Vitamin B-12 391 250 - 900 pcg/mL LAB CHEMISTRY METHOD 02/13/2025 10:12 AM EDT [facility] Blood Venous blood specimen / Unknown Venipuncture / Unknown 02/13/2025 6:49 AM EDT 02/13/2025 8:56 AM EDT us Harris Gross MD LAB BLOOD ORDERABLES Final Resul t Performing Organization Address [facility]/ZIP Co de Phone Number [facility] [address] [place] [address], [place] [phone] * Vitamin D 25 hydroxy (02/13/2025 6:49 AM EDT) [facility] Vit D, 25-Hydroxy 57.4 30.0 - 80.0 ng/mL LAB CHEMISTRY METHOD 02/13/2025 11:18 AM EDT [facility] Blood Venous blood specimen / Unknown Venipuncture / Unknown 02/13/2025 6:49 AM EDT 02/13/2025 8:56 AM EDT us Harris Gross MD LAB BLOOD ORDERABLES Final Resul t [facility] [address] [place] [address], [place] [phone] * Thyroid stimulating hormone (02/13/2025 6:49 AM EDT) [facility] TSH 1.12 0.40 - 4.00 mcIU/mL LAB CHEMISTRY METHOD 02/13/2025 11:19 AM EDT [facility] Blood Venous blood specimen / Unknown Venipuncture / Unknown 02/13/2025 6:49 AM EDT 02/13/2025 8:56 AM EDT Harris Gross MD LAB BLOOD ORDERABLES Final Resul t [facility] [address] [place] [address], [place] [phone] * (ABNORMAL) Comprehensive metabolic panel (02/13/2025 6:49 AM EDT) Sodium 140 133 - 145 mmol/L LAB CHEMISTRY METHOD 02/13/2025 10:12 AM [facility] Potassium 3.8 3.5 - 5.5 mmol/L LAB CHEMISTRY METHOD 02/13/2025 10:12 AM [facility] Chloride 105 96 - 110 mmol/L LAB CHEMISTRY METHOD 02/13/2025 10:12 AM [facility] CO2 29 21 - 32 mmol/L LAB CHEMISTRY METHOD 02/13/2025 10:12 AM [facility] Anion Gap 6 3 - 11 LAB CHEMISTRY METHOD 02/13/2025 10:12 AM [facility] Glucose 91 70 - 100 mg/dL LAB CHEMISTRY METHOD 02/13/2025 10:12 AM [facility] BUN 24 5 - 25 mg/dL LAB CHEMISTRY METHOD 02/13/2025 10:12 AM [facility] Creatinine 0.88 0.50 - 1.10 mg/dL LAB CHEMISTRY METHOD 02/13/2025 10:12 AM [facility] eGFR 65 >=60 mL/min/1. 73m2 LAB CHEMISTRY METHOD 02/13/2025 10:12 AM [facility] Comment:Calculation based on the Chronic Kidney Disease Epidemiology Collaboration (CKD-EPI) equation refit without adjustment for race. BUN/Creatinine Ratio 27.3 LAB CHEMISTRY METHOD 02/13/2025 10:12 AM [facility] Calcium 9.2 8.5 - 10.5 mg/dL LAB CHEMISTRY METHOD 02/13/2025 10:12 AM [facility] AST (SGOT) 14 10 - 42 unit/L LAB CHEMISTRY METHOD 02/13/2025 10:12 AM [facility] ALT (SGPT) 14 10 - 60 unit/L LAB CHEMISTRY METHOD 02/13/2025 10:12 AM [facility] Alkaline Phosphatase 88 42 - 121 unit/L LAB CHEMISTRY METHOD 02/13/2025 10:12 AM [facility] Total Protein 5.9(L) 6.0 - 8.0 g/dL LAB CHEMISTRY METHOD 02/13/2025 10:12 AM [facility] Albumin 3.1(L) 3.2 - 5.0 g/dL LAB CHEMISTRY METHOD 02/13/2025 10:12 AM [facility] Total Bilirubin 0.4 0.0 - 1.4 mg/dL LAB CHEMISTRY METHOD 02/13/2025 10:12 AM [facility] Blood Venous blood specimen / Unknown Venipuncture / Unknown 02/13/2025 6:49 AM EDT 02/13/2025 8:56 AM EDT us Harris Gross MD LAB BLOOD ORDERABLES Final Resul t [facility] [address] [place] [address], * (ABNORMAL) Complete blood count (02/13/2025 6:49 AM EDT) WBC 3.3(L) 4.8 - 10.8 K/mcL LAB HEMETOLOGY METHOD 02/13/2025 9:07 AM [facility] RBC 2.90(L) 3.80 - 4.80 M/mcL LAB HEMETOLOGY METHOD 02/13/2025 9:07 AM [facility] Hemoglobin 8.4(L) 11.5 - 16.0 g/dL LAB HEMETOLOGY METHOD 02/13/2025 9:07 AM [facility] Hematocrit 27.2(L) 35.0 - 47.0 % LAB HEMETOLOGY METHOD 02/13/2025 9:07 AM [facility] MCV 94.8 79.0 - 98.0 FL LAB HEMETOLOGY METHOD 02/13/2025 9:07 AM [facility] MCH 29.3 27.0 - 32.0 pcg LAB HEMETOLOGY METHOD 02/13/2025 9:07 AM [facility] MCHC 30.9(L) 32.0 - 37.0 g/dL LAB HEMETOLOGY METHOD 02/13/2025 9:07 AM [facility] RDW 14.9 11.0 - 15.0 % LAB HEMETOLOGY METHOD 02/13/2025 9:07 AM [facility] Platelets 132 130 - 400 K/mcL LAB HEMETOLOGY METHOD 02/13/2025 9:07 AM [facility] MPV 11.8(H) 7.0 - 11.0 FL LAB HEMETOLOGY METHOD 02/13/2025 9:07 AM [facility] NRBC 0.0 <1.0 % LAB HEMETOLOGY METHOD 02/13/2025 9:07 AM [facility] NRBC Absolute 0.00 <0.10 K/mcL LAB HEMETOLOGY METHOD 02/13/2025 9:07 AM [facility] Blood Venous blood specimen / Unknown Venipuncture / Unknown 02/13/2025 6:49 AM EDT 02/13/2025 8:56 AM EDT Harris Gross MD LAB BLOOD ORDERABLES Final Resul t [facility] ([facility] [address] [place] [address], documented in this encounter Visit Diagnoses Diagnosis Vitamin D deficiency, unspecified Gastrointestinal hemorrhage, unspecified Aphagia Anorexia documented in this encounter Care Teams Unit Coordinator Relationship Specialty Start Date End Date Harris Gross MD [address] [place] [address] [address] [place] [address] PCP - General Geriatric Medicine 02/13/25 documented as of this encounter
--- OUTSIDE RECORDS SUMMARY | 2025-04-30 17:09 | XMS_ITS | Encounter Summary ---
Author Organization [facility] Address [address] [place] [address] Phone Care Team Providers Care Watch Guard Gate Name Role Phone Norm Bates Unavailable [phone] Verónica Nielson MD Unavailable [phone] Bandar Renteria MD Unavailable [phone] Luis Milner CNP Unavailable [phone] Martha Estrada MD Unavailable [phone] David Walton MD Unavailable [phone] Deny Saleh DO Primary Care Provider [phone] Bandar Renteria MD Primary Care Provider Nick Gomez Primary Care Provider + Encounter Details Date Type Department Care Team (Late st Contact Info) Description 12/14/2020 Transcribe Orders [facility] [address] [place] [address] Deny Saleh DO [address] [facility] [address] [place], [place] [id number] [email or web address] Social History Tobacco Use Types Packs/Day Years [...] on filedocumented in this encounter Care Teams Watch Guard Gate Relationship Specialty Start Date End Date Nunudelfina Deny SawyerDO [address] [place] [address] [email or web address] PCP - General Internal Medicine 08/09/17 01/09/21 Bandar Renteria MD [address] [place] [address] [address] PCP - General Internal Medicine 01/10/21 05/13/23 Nick Gomez PA [address] [place] [address] PCP - General Physician Duct Installer 05/14/23 Norm Bates PA [address] [place] [address] Historical LMR Provider 06/22/17 2 Verónica Nielson MD [address] [address] [email or web address] Historical LMR Provider 06/22/17 Bandar Renteria MD [address] [place] [address] [address] Historical LMR Provider 06/22/17 2 Luis Milner CNP [address] [place] [address] Historical LMR Provider 06/22/17 09/11/21 Martha Estrada MD 4 [facility] [place] [address] [email or web address] Historical LMR Provider 06/22/17 David Walton MD [address] [place] [address] Historical LMR Provider 06/22/17 2 documented as of this encounter Additional Source Comments The information contained in this document represents components of the legal health record. It is not the complete legal health record.[facility]
--- OUTSIDE RECORDS SUMMARY | 2025-04-30 17:09 | XMS_ITS | Encounter Summary ---
Author Organization [facility] Address [address] [place] [address] Care Team Providers Care Graphic User Interface Designer Name Role Phone Harris Gross MD Primary Care Provider [phone] Encounter Details Date Type Department Care Team (Late st Contact Info) Description 03/06/2025 Lab Requisition [facility] - Main Lab [address] [facility] [employer] [place] [address] Harris Gross MD [address] [place], [place] [phone] Altered mental status, unspecified; Dysuria Social History Tobacco Use Types Packs/Day Years [...] Procedure Name Priority Date/Time Associated Diagnosis Comments URINALYSIS WITH REFLEX MICROSCOPIC Routine 03/06/2025 12:00 AM EDT Altered mental status, unspecified Dysuria URINALYSIS WITH REFLEX MICROSCOPIC Routine 03/06/2025 12:00 AM EDT Altered mental status, unspecified Dysuria CULTURE URINE Routine 03/06/2025 12:00 AM EDT Altered mental status, unspecified Dysuria documented in this encounter Results * Urinalysis with reflex microscopic (03/06/2025 12:00 AM EDT) Specific [place] Urine 1.008 1.003 - 1.030 LAB URINALYSIS - AUTOMATED METHOD 03/06/2025 10:34 AM [facility] pH, Urine 7.5 5.0 - 8.0 pH LAB URINALYSIS - AUTOMATED METHOD 03/06/2025 10:34 AM [facility] Leukocytes, Urine Negative Negative LAB URINALYSIS - AUTOMATED METHOD 03/06/2025 10:34 AM [facility] Nitrite, Urine Negative Negative LAB URINALYSIS - AUTOMATED METHOD 03/06/2025 10:34 AM [facility] Protein, Urine Negative <=Trace mg/dL LAB URINALYSIS - AUTOMATED METHOD 03/06/2025 10:34 AM [facility] Glucose, Urine Negative Negative mg/dL LAB URINALYSIS - AUTOMATED METHOD 03/06/2025 10:34 AM [facility] Ketones, Urine Negative Negative mg/dL LAB URINALYSIS - AUTOMATED METHOD 03/06/2025 10:34 AM [facility] Urobilinogen, Urine 0.2 0.2 - 1.0 mg/dL LAB URINALYSIS - AUTOMATED METHOD 03/06/2025 10:34 AM [facility] Bilirubin, Urine Negative Negative LAB URINALYSIS - AUTOMATED METHOD 03/06/2025 10:34 AM [facility] Blood, Urine Negative Negative LAB URINALYSIS - AUTOMATED METHOD 03/06/2025 10:34 AM [facility] Urine Urine specimen obtained by clean catch procedure / Unknown 03/06/2025 03/06/2025 8:51 AM EDT us Harris Gross MD LAB URINE ORDERABLES Final Resul t [facility] [address] [place] [address], * Culture urine (03/06/2025 12:00 AM EDT) Culture, Urine <10,000 CFU/mL gram positive cocci, insignificant count, no further workup 03/07/2025 1:00 PM EDT [facility] Urine Urine specimen obtained by clean catch procedure / Unknown 03/06/2025 03/06/2025 8:51 AM EDT Harris Gross MD LAB MICROBIOLOGY - GENERAL ORDER ROEL Final Result [facility] [address] [place] [address], documented in this encounter Visit Diagnoses Diagnosis Altered mental status, unspecified Dysuria documented in this encounter Care Teams Graphic User Interface Designer Relationship Specialty Start Date End Date Harris Gross MD [address] [place] [address] [address] [place] [address] PCP - General Geriatric Medicine 02/13/25 documented as of this encounter
--- OUTSIDE RECORDS SUMMARY | 2025-04-30 17:09 | XMS_ITS | Clinical Summary ---
Author Organization [address] [facility] Address [address] [place] [address] Phone Care Team Providers Care Solid Waste Manager Name Role Phone Harris Gross MD Primary Care Provider [phone] Encounters Date Type Department Care Team Description 03/06/2025 Lab Requisition [facility] Lab [address] [place] [phone] Harris Gross MD Altered mental status, unspecified; Dysuria 02/19/2025 Lab Requisition [facility] Lab [address] [place] [phone] Harris Gross MD Other retirement (current) drug therapy 02/13/2025 Lab Requisition [facility] Lab [address] [place] [phone] Harris Gross MD Vitamin D deficiency, unspecified; Gastrointestinal hemorrhage, unspecified; Aphagia from Last 3 Months Social History Tobacco Use Types Packs/Day Years [...] (1 - Tdap) 1959 Pneumococcal Vaccine: 50+ Years (1 of 2 - PCV) 1959 RSV Immunization Adult Patients (1 - 1-dose 75+ series) 2015 Zoster Vaccines (2 of 3) 11/24/2016 09/29/2016 Falls Risk Assessment 10/03/2023 Medicare Annual Wellness Visit 10/03/2023 Osteoporosis Screening (Bone Density Screening) 10/03/2023 Social Influencers of Health Screening 10/03/2023 COVID-19 Vaccine (3 2023-2 5 season) 2024 06/29/2021, 10/30/2020 Depression Screening 09/04/2024 Influenza Vaccine (#1) 2025 , 06/17/2018, 05/07/2018 HIB Vaccines Aged Out No longer eligi [...] to complete this topic RSV Immunization Patients Under 20 months Aged Out No longer eligible b ased on patient's age to complete this topic Varicella Vaccines Aged Out No longer eligible based on patient's age to complete this topic Procedures Procedure Name Priority Date/Time Associated Diagnosis Comments URINALYSIS WITH REFLEX MICROSCOPIC Routine 03/06/2025 12:00 AM EDT Altered mental status, unspecified Dysuria URINALYSIS WITH REFLEX MICROSCOPIC Routine 03/06/2025 12:00 AM EDT Altered mental status, unspecified Dysuria CULTURE URINE Routine 03/06/2025 12:00 AM EDT Altered mental status, unspecified Dysuria FOLATE Routine 02/19/2025 5:09 AM EDT Other retirement (current) drug therapy VITAMIN B12 Routine 02/13/2025 6:49 AM EDT Vitamin D deficiency, unspecified Gastrointestinal hemorrhage, unspecified Aphagia VITAMIN D 25 HYDROXY Routine 02/13/2025 6:49 [...] D deficiency, unspecified Gastrointestinal hemorrhage, unspecified Aphagia from Last 3 Months Results * Urinalysis with reflex microscopic (03/06/2025 12:00 AM EDT) Specific [place] Urine 1.008 1.003 - 1.030 LAB URINALYSIS - AUTOMATED METHOD 03/06/2025 10:34 AM [facility] pH, Urine 7.5 5.0 - 8.0 pH LAB URINALYSIS - AUTOMATED METHOD 03/06/2025 10:34 AM [facility] Leukocytes, Urine Negative Negative LAB URINALYSIS - AUTOMATED METHOD 03/06/2025 10:34 AM [facility] Nitrite, Urine Negative Negative LAB URINALYSIS - AUTOMATED METHOD 03/06/2025 10:34 AM [facility] Protein, Urine Negative <=Trace mg/dL LAB URINALYSIS - AUTOMATED METHOD 03/06/2025 10:34 AM [facility] Glucose, Urine Negative Negative mg/dL LAB URINALYSIS - AUTOMATED METHOD 03/06/2025 10:34 AM [facility] Ketones, Urine Negative Negative mg/dL LAB URINALYSIS - AUTOMATED METHOD 03/06/2025 10:34 AM [facility] Urobilinogen, Urine 0.2 0.2 - 1.0 mg/dL LAB URINALYSIS - AUTOMATED METHOD 03/06/2025 10:34 AM EDT [facility] Bilirubin, Urine Negative Negative LAB URINALYSIS - AUTOMATED METHOD 03/06/2025 10:34 AM EDT [facility] Blood, Urine Negative Negative LAB URINALYSIS - AUTOMATED METHOD 03/06/2025 10:34 AM EDT [facility] Urine Urine specimen obtained by clean catch procedure / Unknown 03/06/2025 03/06/2025 8:51 AM EDT us Harris Gross MD LAB URINE ORDERABLES Final Resul t Performing Organization Address City/[facility]/ZIP Co de Phone Number [facility] [address] [place] [address], [place] [phone] * Culture urine (03/06/2025 12:00 AM EDT) Pathologist [facility] Culture, Urine <10,000 CFU/mL gram positive cocci, insignificant count, no further workup 03/07/2025 1:00 PM EDT [facility] Urine Urine specimen obtained by clean catch procedure / Unknown 03/06/2025 03/06/2025 8:51 AM EDT us Harris Gross MD LAB MICROBIOLOGY - GENERAL ORDER ROEL Final Result Performing Organization Address [facility]/State/ZIP Co de Phone Number [facility] [address] [place] [address], [place] [phone] * (ABNORMAL) Folate (02/19/2025 5:09 AM EDT) Folate >20.0(H) 2.8 - 17.0 ng/ml LAB CHEMISTRY METHOD 02/19/2025 8:26 AM EDT [facility] Blood Venous blood specimen / Unknown Venipuncture / Unknown 02/19/2025 5:09 AM EDT 02/19/2025 6:45 AM EDT us Harris Gross MD LAB BLOOD ORDERABLES Final Resul t Performing Organization Address [facility]/ZIP Co de Phone Number [facility] [address] [place] [address], [place] [phone] * Vitamin D 25 hydroxy (02/13/2025 6:49 AM EDT) [facility] Vit D, 25-Hydroxy 57.4 30.0 - 80.0 ng/mL LAB CHEMISTRY METHOD 02/13/2025 11:18 AM EDT [facility] Blood Venous blood specimen / Unknown Venipuncture / Unknown 02/13/2025 6:49 AM EDT 02/13/2025 8:56 AM EDT us Harris Gross MD LAB BLOOD ORDERABLES Final Resul t Performing Organization Address [facility] de Phone Number [facility] [address] [place] [address], [place] [phone] * (ABNORMAL) Complete blood count (02/13/2025 6:49 AM EDT) [facility] WBC 3.3(L) 4.8 - 10.8 K/mcL LAB HEMETOLOGY METHOD 02/13/2025 9:07 AM EDT [facility] RBC 2.90(L) 3.80 - 4.80 M/mcL LAB HEMETOLOGY METHOD 02/13/2025 9:07 AM EDT [facility] Hemoglobin 8.4(L) 11.5 - 16.0 g/dL LAB HEMETOLOGY METHOD 02/13/2025 9:07 AM EDT [facility] Hematocrit 27.2(L) 35.0 - 47.0 % LAB HEMETOLOGY METHOD 02/13/2025 9:07 AM EDT [facility] MCV 94.8 79.0 - 98.0 FL LAB HEMETOLOGY METHOD 02/13/2025 9:07 AM EDT [facility] MCH 29.3 27.0 - 32.0 pcg LAB HEMETOLOGY METHOD 02/13/2025 9:07 AM EDT [facility] MCHC 30.9(L) 32.0 - 37.0 g/dL LAB HEMETOLOGY METHOD 02/13/2025 9:07 AM EDT [facility] RDW 14.9 11.0 - 15.0 % LAB HEMETOLOGY METHOD 02/13/2025 9:07 AM EDT [facility] Platelets 132 130 - 400 K/mcL LAB HEMETOLOGY METHOD 02/13/2025 9:07 AM EDT [facility] MPV 11.8(H) 7.0 - 11.0 FL LAB HEMETOLOGY METHOD 02/13/2025 9:07 AM EDT [facility] NRBC 0.0 <1.0 % LAB HEMETOLOGY METHOD 02/13/2025 9:07 AM [facility] NRBC Absolute 0.00 <0.10 K/mcL LAB HEMETOLOGY METHOD 02/13/2025 9:07 AM [facility] Blood Venous blood specimen / Unknown Venipuncture / Unknown 02/13/2025 6:49 AM EDT 02/13/2025 8:56 AM EDT us Harris Gross MD LAB BLOOD ORDERABLES Final Resul t [facility] [address] [place] [address], * Thyroid stimulating hormone (02/13/2025 6:49 AM EDT) TSH 1.12 0.40 - 4.00 mcIU/mL LAB CHEMISTRY METHOD 02/13/2025 11:19 AM EDT [facility] Blood Venous blood specimen / Unknown Venipuncture / Unknown 02/13/2025 6:49 AM EDT 02/13/2025 8:56 AM EDT us Harris Gross MD LAB BLOOD ORDERABLES Final Resul t [facility] [address] [place] [address], [place] [phone] * Vitamin B12 (02/13/2025 6:49 AM EDT) Pathologist [facility] Vitamin B-12 391 250 - 900 pcg/mL LAB CHEMISTRY METHOD 02/13/2025 10:12 AM EDT [facility] Blood Venous blood specimen / Unknown Venipuncture / Unknown 02/13/2025 6:49 AM EDT 02/13/2025 8:56 AM EDT us Harris Gross MD LAB BLOOD ORDERABLES Final Resul t Performing Organization Address City/[facility]/ZIP Co de Phone Number [facility] [address] [place] [address], [place] [phone] * (ABNORMAL) Comprehensive metabolic panel (02/13/2025 6:49 AM EDT) Pathologist [facility] Sodium 140 133 - 145 mmol/L LAB CHEMISTRY METHOD 02/13/2025 10:12 AM EDT [facility] Potassium 3.8 3.5 - 5.5 mmol/L LAB CHEMISTRY METHOD 02/13/2025 10:12 AM EDT [facility] Chloride 105 96 - 110 mmol/L LAB CHEMISTRY METHOD 02/13/2025 10:12 AM EDT [facility] CO2 29 21 - 32 mmol/L LAB CHEMISTRY METHOD 02/13/2025 10:12 AM EDT [facility] Anion Gap 6 3 - 11 LAB CHEMISTRY METHOD 02/13/2025 10:12 AM [facility] Glucose 91 70 - 100 mg/dL LAB CHEMISTRY METHOD 02/13/2025 10:12 AM [facility] BUN 24 5 - 25 mg/dL LAB CHEMISTRY METHOD 02/13/2025 10:12 AM [facility] Creatinine 0.88 0.50 - 1.10 mg/dL LAB CHEMISTRY METHOD 02/13/2025 10:12 AM [facility] eGFR 65 >=60 mL/min/1. 73m2 LAB CHEMISTRY METHOD 02/13/2025 10:12 AM [facility] Comment:Calculation based on the Chronic Kidney Disease Epidemiology Collaboration (CKD-EPI) equation refit without adjustment for race. BUN/Creatinine Ratio 27.3 LAB CHEMISTRY METHOD 02/13/2025 10:12 AM [facility] Calcium 9.2 8.5 - 10.5 mg/dL LAB CHEMISTRY METHOD 02/13/2025 10:12 AM [facility] AST (SGOT) 14 10 - 42 unit/L LAB CHEMISTRY METHOD 02/13/2025 10:12 AM [facility] ALT (SGPT) 14 10 - 60 unit/L LAB CHEMISTRY METHOD 02/13/2025 10:12 AM [facility] Alkaline Phosphatase 88 42 - 121 unit/L LAB CHEMISTRY METHOD 02/13/2025 10:12 AM [facility] Total Protein 5.9(L) 6.0 - 8.0 g/dL LAB CHEMISTRY METHOD 02/13/2025 10:12 AM [facility] Albumin 3.1(L) 3.2 - 5.0 g/dL LAB CHEMISTRY METHOD 02/13/2025 10:12 AM [facility] Total Bilirubin 0.4 0.0 - 1.4 mg/dL LAB CHEMISTRY METHOD 02/13/2025 10:12 AM [facility] Blood Venous blood specimen / Unknown Venipuncture / Unknown 02/13/2025 6:49 AM EDT 02/13/2025 8:56 AM EDT Harris Gross MD LAB BLOOD ORDERABLES Final Resul t [facility] ([facility] [address] [place] [address], from Last 3 Months Insurance MEDICARE [facility] Advance Directives Documents on File Type Date Recorded Patient Edi Developer Expl anation Health Care Decision (hx) 09/07/2023 HE ALTH CARE PROXY Health Care Decision (hx) 03/03/2023 HE ALTH CARE PROXY Care Teams Solid Waste Manager Relationship Specialty Start Date End Date Harris Gross MD [address] [facility] [address] [place] [address] PCP - General Geriatric Medicine 02/13/25
--- OUTSIDE RECORDS SUMMARY | 2025-04-30 17:09 | XMS_ITS | Clinical Summary ---
Author Organization [facility] Address [address] [place] [address] Phone Care Team Providers Care Revenue Field Agent Name Role Phone Nick Gomez Primary Care Provider + Allergies Active Allergy Reactions Criticality Noted Date Comments Amoxicillin-Pot Clavulanate Rash Low 06/11/2015 Cephalexin 04/27/2016 Other reaction(s): itching Ciprofloxacin Rash Low 06/11/2015 Garlic 04/27/2016 Other reaction(s): Unknown Metoprolol Angina High 05/24/2020 Metronidazole Other (See Comments) High 06/11/2015 Other reaction(s): waving vision Sulfa (Sulfonamide Antibiotics) 05/24/2020 Sulfacetamide Sodium 04/27/2016 Other reaction(s): rash Sulfamethoxazole-Trimeth oprim Rash Low 06/11/2015 Medications ALPRAZolam (XANAX) 0.25 MG tablet 1 tablet Activ e acetaminophen (TYLENOL) 325 mg tablet 1 tablet as needed Active fluticasone propionate (FLONASE) 50 mcg/actuation nasal spray fluticasone propionate 50 mcg/actuation nasal spray,suspension Active omeprazole (PRILOSEC) 20 MG capsule TK 1 C PO QD 05/14/20 20 Active ondansetron (ZOFRAN-ODT) 4 MG disintegrating tablet DISSOLVE 1 TABLET ON THE TONGUE EVERY 6 HOURS NEEDED FOR NAUSEA OR VOMITING 11/13/19 21 Active DOK 100 mg capsule TAKE 1 CAPSULE BY MOUTH TWICE DAILY NEEDED FOR CONSTIPATION 02/25/20 21 Active phenazopyridine (PYRIDIUM) 100 MG tablet Take 2 tablets (200 mg total) by mouth 3 (three) times a day as needed for pain (specific location in comments) (URINARY DISCOMFORT). 6 tablet 03/08/20 Active Additional Information Patient not taking.Reported on 02/20/2022 ammonium lactate (AMLACTIN) 12 % cream APPLY TO THE AFFECTED AREA ON FEET TWICE DAILY 11/24/19 Active cyclobenzaprine (FLEXERIL) 5 MG tablet Take 5 mg by mouth 3 (three) times a day as needed. 02/07/20 Active desvenlafaxine succinate (PRISTIQ) 25 mg 24 hr tablet Take 25 mg by mouth every morning. 01/21/20 Active valsartan (DIOVAN) 40 MG tablet Take 40 mg by mouth daily. 01/27/20 Active escitalopram oxalate (LEXAPRO) 10 MG tablet Take 5 mg by mouth daily. Active citalopram (CELEXA) 10 MG tablet Take 10 mg by mouth nightly at bedtime. 05/02/20 23 Active VITAMIN B-12 1000 MCG tablet Take 1 tablet by mouth every morning. 04/18/20 23 Active dicyclomine (BENTYL) 10 MG capsule TAKE ONE CAPSULE BY MOUTH EVERY 6 HOURS NEEDED FOR CRAMPS 02/11/20 23 Active losartan (COZAAR) 25 MG tablet Take 1 tablet by mouth every morning. 05/03/20 23 Active pantoprazole (PROTONIX) 40 MG tablet TAKE ONE TABLET BY MOUTH EVERY DAY AT 6:30 AM. 04/18/20 23 Active ondansetron (ZOFRAN) 4 MG tablet TAKE ONE TABLET BY MOUTH EVERY 8 HOURS FOR NAUSEA FOR 10 DAYS 03/22/20 23 Active melatonin 3 mg Tab Take 3 mg by mouth nightly at bedtime. 04/14/20 23 Active sucralfate (CARAFATE) 1 gram tablet TAKE ONE TABLET BY MOUTH FOUR TIMES A DAY BEFORE MEAL/BED) FOR 5 DAYS. 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 Primary osteoarthritis of left knee 05/25/2020 Abdominal aortic aneurysm 05/16/2018 Anxiety 02/06/2018 Aortic valve stenosis 02/06/2018 Chronic obstructive lung disease 02/06/2018 Diverticulitis 02/06/2018 Female bladder prolapse 02/06/2018 Immunizations Immunization Administration Dates Next Due COVID-19 (Pre-06/26) Pfizer Vaccine, mRNA, PF Influenza Quadrivalent Preservative Free IM 07/05 Influenza Quadrivalent w/ Preservative IM 2017 Influenza Trivalent Adjuvanted Preservative free IM 06/17/2018 Zoster live 09/29/2016 Social History Tobacco Use Types Packs/Day Years Used Date Smoking Tobacco: Former Cigarettes Q uit: 2014 Smokeless Tobacco: Never Tobacco Cessation:Counseling Given: Not Answered Education Answer Date Recorded Are you interested in more education? Not on giovanni e 12/30/2022 Are you concerned about learning? Not on file 12/30/2022 No 12/30/2022 No 12/30/2022 Digital Access Answer Date Recorded No 01/28/2023 No 01/28/2023 Reliable internet access at home? Not on file 01/28/2023 Device with a working camera? Not on file Comments Unknown Sex and Gender Information Value Date Recorded Sex Assigned at Not on file Legal Sex Female 10:12 PM EDT Gender Identity Not on file Sexual Orientation Not on file Last Filed Vital Signs Vital Sign Reading Time Taken Comments Blood Pressure 150/96 05/20/2023 3:45 PM EDT Pulse 90 05/20/2023 3:45 PM EDT Temperature 37.3 C (99.2 F) 05/20/2023 3:45 PM EDT Respiratory Rate 16 05/20/2023 3:45 PM EDT Oxygen Saturation 96% 05/20/2023 3:45 PM EDT Inhaled Oxygen Concentration - - Weight 73.9 kg (163 lb) 05/14/2023 2:38 PM EDT Height 167.6 cm (5' 6 ) 05/14/2023 2:38 PM EDT Body Mass Index 26.31 05/14/2023 2:38 PM EDT Plan of Treatment Health Maintenance Due Date Last Done Comments CREATININE LEVEL 1940 POTASSIUM LEVEL 1940 DEPRESSION SCREENING 1952 PNEUMOCOCCAL VACCINES (50+ years) (1 of 2 - PCV) 1959 OSTEOPOROSIS SCREENING INITIAL (ONE-TIME) 2005 RSV VACCINE (1 - 1-dose 75+ series) 2015 ZOSTER VACCINES (2 of 3) 11/24/2016 09/29/2016 COVID-19 VACCINE (5 - season) 2024 08/19/2021, 06/29/2021, 10/30/2020, Additional history exists Adult Td,Tdap Booster 09/03/2032 09/03/2022 HEPATITIS A VACCINES Aged Out No long er eligible based on patient's age to complete this topic HIB VACCINES Aged Out No longer eligi ble based on patient's age to complete this topic MENINGOCOCCAL VACCINES (ACWY) Aged Out No longer eligible based on patient's age to complete this topic MENINGOCOCCAL VACCINES (B) Aged Out N o longer eligible based on patient's age to complete this topic Medical Devices Not on file Insurance MEDICARE PART A & B [facility] [employer] MEDICARE SUPPLEMENT MEDICARE PART A & B [employer] MEDICARE SUPPLEMENT MEDICARE PART A & B [employer] MEDICARE SUPPLEMENT MEDICARE PART A & B [employer] [place] [phone] MEDICARE PART A & B [employer] MEDICARE SUPPLEMENT MEDICARE PART A & B [facility] MEDICARE SUPPLEMENT MEDICARE PART A & B [facility] [employer] MEDICARE SUPPLEMENT MEDICARE PART A & B [facility] [employer] MEDICARE SUPPLEMENT MEDICARE PART A & B [facility] [employer] MEDICARE SUPPLEMENT Care Teams Revenue Field Agent Relationship Specialty Start Date End Date Nick Gomez PA [facility] [place] [address] PCP - General Physician Dance Historian 05/14/23 Additional Source Comments The information contained in this document represents components of the legal health record. It is not the complete legal health record.[facility]
--- OUTSIDE RECORDS SUMMARY | 2025-04-30 17:09 | XMS_ITS | Encounter Summary ---
Author Organization [facility] Address [address] [place] [address] Care Team Providers Care Soybean Grower Name Role Phone Harris Gross MD Primary Care Provider [phone] Encounter Details Date Type Department Care Team (Late st Contact Info) Description 02/19/2025 Lab Requisition [facility] - Main Lab [address] [facility] [place] [employer] [place] [address] Harris Gross MD [address] [place], [place] [id number] Other retirement (current) drug therapy Social History Tobacco Use Types Packs/Day Years [...] Procedure Name Priority Date/Time Associated Diagnosis Comments FOLATE Routine 02/19/2025 5:09 AM EDT Other intermediate accountant (current) drug therapy documented in this encounter Results * (ABNORMAL) Folate (02/19/2025 5:09 AM EDT) Folate >20.0(H) 2.8 - 17.0 ng/ml LAB CHEMISTRY METHOD 02/19/2025 8:26 AM EDT [facility] ([facility]) [facility] Blood Venous blood specimen / Unknown Venipuncture / Unknown 02/19/2025 5:09 AM EDT 02/19/2025 6:45 AM EDT Harris Gross MD LAB BLOOD ORDERABLES Final Resul t [facility] ([facility]) [facility] [address] [place] [address], documented in this encounter Visit Diagnoses Diagnosis Other retirement (current) drug therapy documented in this encounter Care Teams Soybean Grower Relationship Specialty Start Date End Date Harris Gross MD [address] [place] [address] [address] [place] [address] PCP - General Geriatric Medicine 02/13/25 documented as of this encounter
[2025-04-30 17:13] VITALS: BP 126/70; PULSE 84; RESP 16; TEMP 36.7; O2SAT 94
== END 2025-04-30 17:14 | disposition home or self-care (01) ==
PROVIDERS: Physician Assistant Medical; Emergency Provider Emergency Medicine; PCP Internal Medicine
DX: R10.9 Unspecified abdominal pain (principal); K59.01 Slow transit constipation; I10 Essential (primary) hypertension; F41.9 Anxiety disorder, unspecified; K21.9 Gastro-esophageal reflux disease without esophagitis; Z87.891 Personal history of nicotine dependence; Z95.2 Presence of prosthetic heart valve
CPT/HCPCS: 36415; 74018; 80053; 85025; 99282; 99283

== ENCOUNTER → 2025-04-30 11:59 | Outpatient (BNV) | payer MEDICARE, OTHER, SELFPAY | PROVIDERS: PCP Internal Medicine; Visit Provider Radiology Diagnostic Radiology | DX: R10.9 Unspecified abdominal pain (principal) | CPT/HCPCS: 74018 ==

== ENCOUNTER 2025-05-02 14:04 | Outpatient (AMB) | payer MEDICARE, OTHER, SELFPAY ==
[2025-05-02 14:06] VITALS: BP 92/50; PULSE 86; RESP 18; TEMP 36.3; O2SAT 97; BMI 26.5
--- NOTE | 2025-05-02 14:06 | A.OFFPC_ITS ---
Vital Signs 05/02/25 14:06 Height 5 ft 6 in Weight 164 lb 2 oz BMI 26.5 BP 92/50 L Blood Pressure Location Lt brachial Position Sitting Respiration 18 Pulse 86 Pulse Source Pulse Oximeter Temp 97.3 F Temp Source Temporal Artery Scan Pulse Oximetry (%) 97 Oxygen Delivery Method Room Air Intake Visit Reasons: EDF abd pain/constipation. House Player Required: No Accompanied by: Self / Same As Patient Allergies buspirone Allergy (Intermediate, Verified 05/02/25 14:07) Rash Sulfa (Sulfonamide Antibiotics) Allergy (Intermediate, Verified 05/02/25 14:07) RASH cefuroxime Allergy (Unknown, Verified 05/02/25 14:07) Unknown garlic (GARLIC) Allergy (Unknown, Verified 05/02/25 14:07) PER H&P metronidazole (From FLAGYL) Allergy (Unknown, Verified 05/02/25 14:07) OCULAR MIGRAINES penicillamine Allergy (Unknown, Verified 05/02/25 14:07) Unknown ciprofloxacin Adverse Reaction (Intermediate, Verified 05/02/25 14:07) neuropathic pain lisinopril Adverse Reaction (Intermediate, Verified 05/02/25 14:07) Cough nitrofurantoin Adverse Reaction (Mild, Verified 05/02/25 14:07) GI side effects cefuroxime Allergy (Intermediate, Uncoded 04/25/25 09:35) wheezy cough/itch flagyl Allergy (Unknown, Uncoded 04/25/25 09:35) Unknown From KEFLEX Allergy (Unknown, Uncoded 04/25/25 09:35) RASH Metoprolol Tartrate Allergy (Unknown, Uncoded 04/25/25 09:35) Unknown Sulfacet-R Allergy (Unknown, Uncoded 04/25/25 09:35) Unknown Tobacco use date assessed: 05/02/25 Fall risk assessment: 1 Fall in past year Last assessed Fall Risk: 05/02/25 Dental Screening Dental Screen Date: 05/02/25 Did you have a dental visit in the last 12 months?: No Did you have a dental problem in the last 6 months where you did not have access to dental care?: No Was dental information given to patient?: No HPI HPI Comments 2 History of Present Illness Details 84 y/o Female patient who presents to [facility] today for EDF. Pt was admitted at [facility] on 04/30 for an evaluation and treatment of Constipation. Pt was originally admitted on 04/25 for similar concern - she was given medications but she did not take them. Today Patient reports feeling much better - she has had few BMs since the hospital discharge. Pt's Son reports that Patient does not drink water at all - she only drinks Sodas. Son/Patient concern about BP readings being too low now but elevated when checked at home. Pt is Asymptomatic. [facility] Medical History (Updated 05/02/25 @ 14:53 by Mily Rowland NP) Nonspecific low blood pressure reading Annual wellness visit Acute diverticulitis LLQ abdominal pain Contusion of right lower leg Otitis media Cough Bronchitis Pelvic pain Chronic cough Elevated IgE level Status post fall Hip pain Post-menopausal URI (upper respiratory infection) Sensation of pressure in bladder area Chest pain Elevated blood sugar Oral candidiasis GERD (gastroesophageal reflux disease) Pulmonary nodule HTN (hypertension) Heart palpitations Constipation Breast cancer screening Breast pain, left Elevated vitamin B12 level Neck muscle spasm Strain of neck muscle Low back pain Pubic ramus fracture Sore throat Skin tear of upper arm without complication Head injury, acute, without loss of consciousness Fall Dizziness Medication noncompliance due to cognitive impairment RLQ abdominal pain Sinusitis Flu syndrome Precordial chest pain Atypical chest pain Cold intolerance Former smoker Abnormal lung sounds Fever Bilateral calf pain Nausea Left lower quadrant abdominal pain Dysuria Fatigue Lower extremity weakness Aortic stenosis Obstipation Dark stools Lower abdominal pain Gastroenteritis Neck pain on right side Back pain Rhinitis Elevated BP without diagnosis of hypertension Non-rheumatic aortic stenosis Diverticulitis GERD (gastroesophageal reflux disease) Cat scratch Cat bite Epigastric discomfort Diarrhea Neuropathy Arthritis GERD (gastroesophageal reflux disease) HTN (hypertension) Irritable bowel Heart murmur Surgical History S/P AVR S/P TAVR (transcatheter aortic valve replacement) Hx of esophagogastroduodenoscopy Hx of colonoscopy History of tonsillectomy History of appendectomy Family History Father No problems noted. Mother No problems noted. Social History Household Members: Children Housing: House Are you a primary campground caretaker to a significant other at home: No Do you presently have visiting nurse or other home services: No Alcohol intake: never Comment: Pt still ambulate on her own even though alarms are on Patient Tobacco Use Status: Former Tobacco user Tobacco use type: Cigarette Years Smoked: 55 e-Cigarette/Vaping Use: Never Used Second Hand Smoke Exposure: Yes Advance Directives Date on File: 03/28/23 service: No Current occupational status: retired Cognitive needs: No Hearing needs: No Vision needs: Yes (glasses) Questionnaire PHQ-9 Over the last 2 weeks, how often have you been bothered by any of the following problems? 1. Little interest or pleasure in doing things: not at all 2. Feeling down, depressed, or hopeless: more than half the days 3. Trouble falling or staying asleep, or sleeping too much: more than half the days 4. Feeling tired or having little energy: several days 5. Poor appetite or overeating: more than half the days 6. Feeling bad about yourself - or that you are a failure or have let yourself or your family down: several days 7. Trouble concentrating on things, such as reading the newspaper or watching television: not at all 8. Moving or speaking so slowly that other people could have noticed. Or the opposite - being so fidgety or restless that you have been moving around a lot more than usual: not at all 9. Thoughts that you would be better off or of hurting yourself in some way: not at all Total score: 8 Depression Screening Interpretation: Positive Depression Screening Follow-up: Existing condition and In treatment Depression Screening Done: Yes 42551 - PHQ-9 Billing: Yes Source: Developed by Drs. Anatoliy Gavin, Peyton Hunt, Austyn Weber and colleagues, with an educational kentrell from [employer]. Thrive Questionnaire Date Thrive assessed: 05/02/25 I am a: Patient What is your living situation today?: I have a steady place to live Within the past 12 months, did the food you bought not last and you didn't have the money to get more?: Never true Within the past 12 months, did you worry whether your food would run out before you got money to buy more?: Never true Do you have trouble paying for medicines?: No Do you have trouble getting transportation to medical appointments?: No Do you have trouble paying your heating and electricity bill?: No Do you have trouble taking care of your child, family member or friend?: No Do you have trouble with day-to-day activities such as bathing, preparing meals, shopping, managing finances, etc.?: No Are you currently unemployed and looking for a job?: No Are you interested in more education?: No Currently or been in a relationship where the following occur: No concerns rep orted THRIVE Score: 0 AUDIT C Alcohol Use Questionnaire (AUDIT-C) 1. How often do you have a drink containing alcohol?: Never Total Score: 0 PAIGE-7 AMB Questionnaire PAIGE-7 Date PAIGE - 7 assessed: 05/02/25 Feeling nervous, anxious, or on edge: 1 = Several days Not being able to stop or control worryin = Not at all Worrying too much about different things: 1 = Several days Trouble relaxin = Several days Being so restless that it is hard to sit still: 1 = Several days Becoming easily annoyed or irritable: 0 = Not at all Feeling afraid as if something awful might happen: 0 = Not at all Total PAIGE-7 score (0-4 normal; 5-9 mild; 10-14 moderate; 15-21 severe): 4 Source: Developed by Drs. Anatoliy Gavin, Peyton Hunt, Austyn Weber and colleagues, with an educational kentrell from [employer]. PAIGE-7 Assessment Billing PAIGE-7 Assessment Tool: PAIGE-7 Assessment 32984 Review of Systems Const All systems reviewed & are unremarkable except as noted in HPI and below Physical exam (Primary Care) Vital Signs: Last Vital Signs Temp 97.3 F 05/02/25 14:06 Pulse 86 05/02/25 14:06 Resp 18 05/02/25 14:06 BP 92/50 L 05/02/25 14:06 Pulse Ox 97 05/02/25 14:06 Oxygen Delivery Method Room Air 05/02/25 14:06 BMI result Body Mass Index 26.5 Tobacco/Smoking Status: Tobacco use Status Tobacco use date assessed 05/02/25 05/02/25 14:11 Patient Tobacco Use Status Former Tobacco user 05/02/25 14:11 Tobacco use type Cigarette 05/02/25 14:11 e-Cigarette/Vaping Use Never Used 05/02/25 14:11 PHQ-9: PHQ-9 Score PHQ-9: Total score 8 05/02/25 14:11 Depression Screening Interpretation: Positive Depression Screening Follow-up: Existing condition and In treatment Thrive Assessment: Date of Thrive Assessment Date Thrive assessed 05/02/25 05/02/25 14:11 Currently or been in a relationship where the following occur: No concerns reported Const General: no acute distress Nutritional Appearance: well nourished Orientation/consciousness: patient oriented x3 Resp Effort & Inspection: normal respiratory effort Auscultation: clear to auscultation bilaterally, no crackles, no rales, no rhonchi and no wheezes Cardio Heart sounds: S1 normal heart sound present and S2 normal heart sound present GI Inspection: Yes Abdominal panniculus present Palpation (GI): Soft to palpation, not firm, nontender, no guarding, not rigid and No hepatosplenomegaly present Neuro General: patient oriented x3 Coding Level of Care Code Est Pt Level 4 (97478) Diagnoses 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 Educated on importance of Increasing Fiber in Diet, hydration with water and exercise. (2) Nonspecific low blood pressure reading: Code(s): R03.1 - Nonspecific low blood-pressure reading Category: Medical Plan: Currently Asymptomatic - will continue to monitor. Advised to drink plenty of water daily and stay hydrated.
--- OUTSIDE RECORDS SUMMARY | 2025-05-02 14:07 | XMS_ITS | Encounter Summary ---
Author Organization [facility] Address [address] [place] [address] Phone Care Team Providers Care Director Of State Name Role Phone Norm Bates Unavailable [phone] Verónica Nielson MD Unavailable [phone] Bandar Renteria MD Unavailable [phone] Luis Milner CNP Unavailable [phone] Martha Estrada MD Unavailable [phone] David Walton MD Unavailable [phone] Deny Saleh DO Primary Care Provider [phone] Bandar Renteria MD Primary Care Provider Nick Gomez Primary Care Provider + Encounter Details Date Type Department Care Team (Late st Contact Info) Description 12/14/2020 Transcribe Orders [facility] [address] [place] [address] Deny Saleh DO [address] [facility] [address] [place], [place] [id number] Social History Tobacco Use Types Packs/Day Years [...] on filedocumented in this encounter Care Teams Director Of State Relationship Specialty Start Date End Date Nunudelfina Deny SawyerDO [address] [place] [address] [email or web address] PCP - General Internal Medicine 08/09/17 01/09/21 Bandar Renteria MD [address] [place] [address] [address] PCP - General Internal Medicine 01/10/21 05/13/23 Nick Gomez PA [address] [place] [address] PCP - General Physician Seam Stayer 05/14/23 Norm Bates PA [address] [place] [address] Historical LMR Provider 06/22/17 2 Verónica Nielson MD [address] [address] [email or web address] Historical LMR Provider 06/22/17 Bandar Renteria MD [address] [place] [address] [address] Historical LMR Provider 06/22/17 2 Luis Milner CNP [address] [place] [address] Historical LMR Provider 06/22/17 09/11/21 Martha Estrada MD [address] [facility], [facility] [place] [address] [email or web address] Historical LMR Provider 06/22/17 David Walton MD [address] [place] [id number] Historical LMR Provider 06/22/17 2 documented as of this encounter Additional Source Comments The information contained in this document represents components of the legal health record. It is not the complete legal health record.[facility]
--- OUTSIDE RECORDS SUMMARY | 2025-05-02 14:07 | XMS_ITS | Encounter Summary ---
Author Organization [facility] Address [address] [place] [address] Care Team Providers Care Electrical Controls Designer Name Role Phone Harris Gross MD Primary Care Provider [phone] Encounter Details Date Type Department Care Team (Late st Contact Info) Description 02/13/[address] [facility] - Main Lab [address] [facility] [place] [address] Harris Gross MD [address] [place], [place] [id number] Vitamin D deficiency, unspecified; Gastrointestinal hemorrhage, unspecified; [...] * Vitamin B12 (02/13/2025 6:49 AM EDT) [facility] Vitamin B-12 391 250 - 900 pcg/mL LAB CHEMISTRY METHOD 02/13/2025 10:12 AM EDT [facility] Blood Venous blood specimen / Unknown Venipuncture / Unknown 02/13/2025 6:49 AM EDT 02/13/2025 8:56 AM EDT us Harris Gross MD LAB BLOOD ORDERABLES Final Resul t Performing Organization Address [facility]/ZIP Co de Phone Number [facility] [address] [place] [address], [place] [phone] * Vitamin D 25 hydroxy (02/13/2025 6:49 AM EDT) [facility] Vit D, 25-Hydroxy 57.4 30.0 - 80.0 ng/mL LAB CHEMISTRY METHOD 02/13/2025 11:18 AM EDT [facility] Blood Venous blood specimen / Unknown Venipuncture / Unknown 02/13/2025 6:49 AM EDT 02/13/2025 8:56 AM EDT us Harris Gross MD LAB BLOOD ORDERABLES Final Resul t [facility] [address] [place] [address], [place] [phone] * Thyroid stimulating hormone (02/13/2025 6:49 AM EDT) [facility] TSH 1.12 0.40 - 4.00 mcIU/mL LAB CHEMISTRY METHOD 02/13/2025 11:19 AM EDT [facility] Blood Venous blood specimen / Unknown Venipuncture / Unknown 02/13/2025 6:49 AM EDT 02/13/2025 8:56 AM EDT Harris Gross MD LAB BLOOD ORDERABLES Final Resul t [facility] [address] [place] [address], [place] [phone] * (ABNORMAL) Comprehensive metabolic panel (02/13/2025 6:49 AM EDT) Sodium 140 133 - 145 mmol/L LAB CHEMISTRY METHOD 02/13/2025 10:12 AM [facility] Potassium 3.8 3.5 - 5.5 mmol/L LAB CHEMISTRY METHOD 02/13/2025 10:12 AM [facility] Chloride 105 96 - 110 mmol/L LAB CHEMISTRY METHOD 02/13/2025 10:12 AM [facility] CO2 29 21 - 32 mmol/L LAB CHEMISTRY METHOD 02/13/2025 10:12 AM [facility] Anion Gap 6 3 - 11 LAB CHEMISTRY METHOD 02/13/2025 10:12 AM [facility] Glucose 91 70 - 100 mg/dL LAB CHEMISTRY METHOD 02/13/2025 10:12 AM [facility] BUN 24 5 - 25 mg/dL LAB CHEMISTRY METHOD 02/13/2025 10:12 AM [facility] Creatinine 0.88 0.50 - 1.10 mg/dL LAB CHEMISTRY METHOD 02/13/2025 10:12 AM [facility] eGFR 65 >=60 mL/min/1. 73m2 LAB CHEMISTRY METHOD 02/13/2025 10:12 AM [facility] Comment:Calculation based on the Chronic Kidney Disease Epidemiology Collaboration (CKD-EPI) equation refit without adjustment for race. BUN/Creatinine Ratio 27.3 LAB CHEMISTRY METHOD 02/13/2025 10:12 AM [facility] Calcium 9.2 8.5 - 10.5 mg/dL LAB CHEMISTRY METHOD 02/13/2025 10:12 AM [facility] AST (SGOT) 14 10 - 42 unit/L LAB CHEMISTRY METHOD 02/13/2025 10:12 AM [facility] ALT (SGPT) 14 10 - 60 unit/L LAB CHEMISTRY METHOD 02/13/2025 10:12 AM [facility] Alkaline Phosphatase 88 42 - 121 unit/L LAB CHEMISTRY METHOD 02/13/2025 10:12 AM [facility] Total Protein 5.9(L) 6.0 - 8.0 g/dL LAB CHEMISTRY METHOD 02/13/2025 10:12 AM [facility] Albumin 3.1(L) 3.2 - 5.0 g/dL LAB CHEMISTRY METHOD 02/13/2025 10:12 AM [facility] Total Bilirubin 0.4 0.0 - 1.4 mg/dL LAB CHEMISTRY METHOD 02/13/2025 10:12 AM [facility] Blood Venous blood specimen / Unknown Venipuncture / Unknown 02/13/2025 6:49 AM EDT 02/13/2025 8:56 AM EDT us Harris Gross MD LAB BLOOD ORDERABLES Final Resul t [facility] [address] [place] [address], * (ABNORMAL) Complete blood count (02/13/2025 6:49 AM EDT) WBC 3.3(L) 4.8 - 10.8 K/mcL LAB HEMETOLOGY METHOD 02/13/2025 9:07 AM [facility] RBC 2.90(L) 3.80 - 4.80 M/mcL LAB HEMETOLOGY METHOD 02/13/2025 9:07 AM [facility] Hemoglobin 8.4(L) 11.5 - 16.0 g/dL LAB HEMETOLOGY METHOD 02/13/2025 9:07 AM [facility] Hematocrit 27.2(L) 35.0 - 47.0 % LAB HEMETOLOGY METHOD 02/13/2025 9:07 AM [facility] MCV 94.8 79.0 - 98.0 FL LAB HEMETOLOGY METHOD 02/13/2025 9:07 AM [facility] MCH 29.3 27.0 - 32.0 pcg LAB HEMETOLOGY METHOD 02/13/2025 9:07 AM [facility] MCHC 30.9(L) 32.0 - 37.0 g/dL LAB HEMETOLOGY METHOD 02/13/2025 9:07 AM [facility] RDW 14.9 11.0 - 15.0 % LAB HEMETOLOGY METHOD 02/13/2025 9:07 AM [facility] Platelets 132 130 - 400 K/mcL LAB HEMETOLOGY METHOD 02/13/2025 9:07 AM [facility] MPV 11.8(H) 7.0 - 11.0 FL LAB HEMETOLOGY METHOD 02/13/2025 9:07 AM [facility] NRBC 0.0 <1.0 % LAB HEMETOLOGY METHOD 02/13/2025 9:07 AM [facility] NRBC Absolute 0.00 <0.10 K/mcL LAB HEMETOLOGY METHOD 02/13/2025 9:07 AM [facility] Blood Venous blood specimen / Unknown Venipuncture / Unknown 02/13/2025 6:49 AM EDT 02/13/2025 8:56 AM EDT Harris Gross MD LAB BLOOD ORDERABLES Final Resul t [facility] [address] [place] [address], documented in this encounter Visit Diagnoses Diagnosis Vitamin D deficiency, unspecified Gastrointestinal hemorrhage, unspecified Aphagia Anorexia documented in this encounter Care Teams Electrical Controls Designer Relationship Specialty Start Date End Date Harris Gross MD [address] [place] [address] [address] [place] [address] PCP - General Geriatric Medicine 02/13/25 documented as of this encounter
--- OUTSIDE RECORDS SUMMARY | 2025-05-02 14:07 | XMS_ITS | Encounter Summary ---
Author Organization [facility] Address [address] [place] [address] Care Team Providers Care Plater Hot Dip Name Role Phone Harris Gross MD Primary Care Provider [phone] Encounter Details Date Type Department Care Team (Late st Contact Info) Description 02/19/[address] [facility] - Main Lab [address] [facility] [place] [address] Harris Gross MD [address] [place], [place] [id number] Other fdc (current) drug therapy Social History Tobacco Use [...] FOLATE Routine 02/19/2025 5:09 AM EDT Other termite inspector (current) drug therapy documented in this encounter Results * (ABNORMAL) Folate (02/19/2025 5:09 AM EDT) Folate >20.0(H) 2.8 - 17.0 ng/ml LAB CHEMISTRY METHOD 02/19/2025 8:26 AM EDT [facility] Blood Venous blood specimen / Unknown Venipuncture / Unknown 02/19/2025 5:09 AM EDT 02/19/2025 6:45 AM EDT Harris Gross MD LAB BLOOD ORDERABLES Final Resul t [facility] [address] [place] [address], documented in this encounter Visit Diagnoses Diagnosis Other fdc (current) drug therapy documented in this encounter Care Teams Plater Hot Dip Relationship Specialty Start Date End Date Harris Gross MD [address] [place] [address] [address] [place] [address] PCP - General Geriatric Medicine 02/13/25 documented as of this encounter
--- OUTSIDE RECORDS SUMMARY | 2025-05-02 14:07 | XMS_ITS | Clinical Summary ---
Author Organization [address] [facility] Address [address] [place] [address] Phone Care Team Providers Care Environmental Remediation Consultant Name Role Phone Harris Gross MD Primary Care Provider [phone] Encounters Date Type Department Care Team Description 03/06/[address] [facility] [address] [place] [phone] Harris Gross MD Altered mental status, unspecified; Dysuria 02/19/[address] [facility] [address] [place] [phone] Harris Gross MD Other senior care (current) drug therapy 02/13/[address] [facility] [address] [place] [phone] Harris Gross MD Vitamin D deficiency, unspecified; [...] FOLATE Routine 02/19/2025 5:09 AM EDT Other senior care (current) drug therapy VITAMIN B12 Routine 02/13/2025 [...] reflex microscopic (03/06/2025 12:00 AM EDT) Specific [place] Urine 1.008 1.003 - 1.030 LAB URINALYSIS - AUTOMATED METHOD 03/06/2025 10:34 AM [facility] pH, Urine 7.5 5.0 - 8.0 pH LAB URINALYSIS - AUTOMATED METHOD 03/06/2025 10:34 AM [facility] Leukocytes, Urine Negative Negative LAB URINALYSIS - AUTOMATED METHOD 03/06/2025 10:34 AM [facility] Nitrite, Urine Negative Negative LAB URINALYSIS - AUTOMATED METHOD 03/06/2025 10:34 AM [facility] Protein, Urine Negative <=Trace mg/dL LAB URINALYSIS - AUTOMATED METHOD 03/06/2025 10:34 AM [facility] Glucose, Urine Negative Negative mg/dL LAB URINALYSIS - AUTOMATED METHOD 03/06/2025 10:34 AM [facility] Ketones, Urine Negative Negative mg/dL LAB URINALYSIS - AUTOMATED METHOD 03/06/2025 10:34 AM [facility] Urobilinogen, Urine 0.2 0.2 - 1.0 mg/dL LAB URINALYSIS - AUTOMATED METHOD 03/06/2025 10:34 AM EDT [facility] Bilirubin, Urine Negative Negative LAB URINALYSIS - AUTOMATED METHOD 03/06/2025 10:34 AM EDT [facility] Blood, Urine Negative Negative LAB URINALYSIS - AUTOMATED METHOD 03/06/2025 10:34 AM EDT [facility] Urine Urine specimen obtained by clean catch procedure / Unknown 03/06/2025 03/06/2025 8:51 AM EDT us Harris Gross MD LAB URINE ORDERABLES Final Resul t Performing Organization Address City/[facility]/ZIP Co de Phone Number [facility] [address] [place] [address], [place] [phone] * Culture urine (03/06/2025 12:00 AM EDT) Pathologist [facility] [place] Culture, Urine <10,000 CFU/mL gram positive cocci, insignificant count, no further workup 03/07/2025 1:00 PM EDT [facility] Urine Urine specimen obtained by clean catch procedure / Unknown 03/06/2025 03/06/2025 8:51 AM EDT us Harris Gross MD LAB MICROBIOLOGY - GENERAL ORDER ROEL Final Result Performing Organization Address [facility]/State/ZIP Co de Phone Number [facility] [address] [place] [address], [place] [phone] * (ABNORMAL) Folate (02/19/2025 5:09 AM EDT) Folate >20.0(H) 2.8 - 17.0 ng/ml LAB CHEMISTRY METHOD 02/19/2025 8:26 AM EDT [facility] Blood Venous blood specimen / Unknown Venipuncture / Unknown 02/19/2025 5:09 AM EDT 02/19/2025 6:45 AM EDT us Harris Gross MD LAB BLOOD ORDERABLES Final Resul t Performing Organization Address [facility]/ZIP Co de Phone Number [facility] [address] [place] [address], [place] [phone] * Vitamin D 25 hydroxy (02/13/2025 6:49 AM EDT) [facility] Vit D, 25-Hydroxy 57.4 30.0 - 80.0 ng/mL LAB CHEMISTRY METHOD 02/13/2025 11:18 AM EDT [facility] Blood Venous blood specimen / Unknown Venipuncture / Unknown 02/13/2025 6:49 AM EDT 02/13/2025 8:56 AM EDT us Harris Gross MD LAB BLOOD ORDERABLES Final Resul t Performing Organization Address [facility] de Phone Number [facility] [address] [place] [address], [place] [phone] * (ABNORMAL) Complete blood count (02/13/2025 6:49 AM EDT) [facility] WBC 3.3(L) 4.8 - 10.8 K/mcL LAB HEMETOLOGY METHOD 02/13/2025 9:07 AM EDT [facility] RBC 2.90(L) 3.80 - 4.80 M/mcL LAB HEMETOLOGY METHOD 02/13/2025 9:07 AM EDT [facility] Hemoglobin 8.4(L) 11.5 - 16.0 g/dL LAB HEMETOLOGY METHOD 02/13/2025 9:07 AM EDT [facility] Hematocrit 27.2(L) 35.0 - 47.0 % LAB HEMETOLOGY METHOD 02/13/2025 9:07 AM EDT [facility] MCV 94.8 79.0 - 98.0 FL LAB HEMETOLOGY METHOD 02/13/2025 9:07 AM EDT [facility] MCH 29.3 27.0 - 32.0 pcg LAB HEMETOLOGY METHOD 02/13/2025 9:07 AM EDT [facility] MCHC 30.9(L) 32.0 - 37.0 g/dL LAB HEMETOLOGY METHOD 02/13/2025 9:07 AM EDT [facility] RDW 14.9 11.0 - 15.0 % LAB HEMETOLOGY METHOD 02/13/2025 9:07 AM EDT [facility] Platelets 132 130 - 400 K/mcL LAB HEMETOLOGY METHOD 02/13/2025 9:07 AM EDT [facility] MPV 11.8(H) 7.0 - 11.0 FL LAB HEMETOLOGY METHOD 02/13/2025 9:07 AM EDT [facility] NRBC 0.0 <1.0 % [...] MD LAB BLOOD ORDERABLES Final Resul t [facility] [address] [place] [address], * Thyroid stimulating hormone (02/13/2025 6:49 AM EDT) TSH 1.12 0.40 - 4.00 mcIU/mL LAB CHEMISTRY METHOD 02/13/2025 11:19 AM EDT [facility] Blood Venous blood specimen / Unknown Venipuncture / Unknown 02/13/2025 6:49 AM EDT 02/13/2025 8:56 AM EDT us Harris Gross MD LAB BLOOD ORDERABLES Final Resul t [facility] [address] [place] [address], [place] [phone] * Vitamin B12 (02/13/2025 6:49 AM EDT) Pathologist [facility] [place] Vitamin B-12 391 250 - 900 pcg/mL LAB CHEMISTRY METHOD 02/13/2025 10:12 AM EDT [facility] Blood Venous blood specimen / Unknown Venipuncture / Unknown 02/13/2025 6:49 AM EDT 02/13/2025 8:56 AM EDT us Harris Gross MD LAB BLOOD ORDERABLES Final Resul t Performing Organization Address City/[facility]/ZIP Co de Phone Number [facility] [address] [place] [address], [place] [phone] * (ABNORMAL) Comprehensive metabolic panel (02/13/2025 6:49 AM EDT) Pathologist [facility] [place] Sodium 140 133 - 145 mmol/L LAB CHEMISTRY METHOD 02/13/2025 10:12 AM EDT [facility] Potassium 3.8 3.5 - 5.5 mmol/L LAB CHEMISTRY METHOD 02/13/2025 10:12 AM EDT [facility] Chloride 105 96 - 110 mmol/L LAB CHEMISTRY METHOD 02/13/2025 10:12 AM EDT [facility] CO2 29 21 - 32 mmol/L LAB CHEMISTRY METHOD 02/13/2025 10:12 AM EDT [facility] Anion Gap 6 3 [...] LAB BLOOD ORDERABLES Final Resul t [facility] ([facility] [address] [place] [address], from Last 3 Months Insurance MEDICARE [facility] Advance Directives Documents on File Type Date Recorded Patient Estate Planning Director Expl anation Health Care Decision (hx) 09/07/2023 HE ALTH CARE PROXY Health Care Decision (hx) 03/03/2023 HE ALTH CARE PROXY Care Teams Environmental Remediation Consultant Relationship Specialty Start Date End Date Harris Gross MD [address] [facility] [address] [place] [address] PCP - General Geriatric Medicine 02/13/25
--- OUTSIDE RECORDS SUMMARY | 2025-05-02 14:07 | XMS_ITS | Clinical Summary ---
Author Organization [facility] Address [address] [place] [phone] Phone Care Team Providers Care Obstetric Anaesthetist Name Role Phone Nick Gomez Primary Care [...] file Insurance MEDICARE PART A & B [facility] MEDICARE SUPPLEMENT MEDICARE PART A & B [employer] MEDICARE SUPPLEMENT MEDICARE PART A & B [employer] MEDICARE SUPPLEMENT MEDICARE PART A & B [employer] [place] [id number] MEDICARE PART A & B [employer] MEDICARE SUPPLEMENT MEDICARE PART A & B Member Subscriber Plan / Payer ( fective 2005-Present) Name:Bella Henley Member ID:[id number] Relation to Subscriber:Self Name:Bella Henley Subscriber ID:[id number] Payer ID:[id number] Group ID:Not on file Type:Medicare Address: [facility] [employer] [facility] [address] [place] [phone] [facility] MEDICARE SUPPLEMENT MEDICARE PART A & B [facility] [employer] MEDICARE SUPPLEMENT MEDICARE PART A & B [facility] [employer] MEDICARE SUPPLEMENT MEDICARE PART A & B [facility] [employer] MEDICARE SUPPLEMENT Care Teams Obstetric Anaesthetist Relationship Specialty Start Date End Date Nick Gomez PA [facility] [place] [address] PCP - General Physician Crnp 05/14/23 Additional Source Comments The information contained in this document represents components of the legal health record. It is not the complete legal health record.[facility]
--- OUTSIDE RECORDS SUMMARY | 2025-05-02 14:07 | XMS_ITS | Encounter Summary ---
Author Organization [facility] Address [address] [place] [address] Care Team Providers Care Oil Refinery Operator Name Role Phone Harris Gross MD Primary Care Provider [phone] Encounter Details Date Type Department Care Team (Late st Contact Info) Description 03/06/2025 Lab Requisition [facility] - Main Lab [address] [facility] [place] [address] Harris Gross MD [address] [place], [place] [id number] Altered mental status, unspecified; Dysuria Social History [...] reflex microscopic (03/06/2025 12:00 AM EDT) Specific [place] Urine 1.008 1.003 - 1.030 LAB URINALYSIS - AUTOMATED METHOD 03/06/2025 10:34 AM [facility] pH, Urine 7.5 5.0 - 8.0 pH LAB URINALYSIS - AUTOMATED METHOD 03/06/2025 10:34 AM [facility] Leukocytes, Urine Negative Negative LAB URINALYSIS - AUTOMATED METHOD 03/06/2025 10:34 AM [facility] Nitrite, Urine Negative Negative LAB URINALYSIS - AUTOMATED METHOD 03/06/2025 10:34 AM [facility] Protein, Urine Negative <=Trace mg/dL LAB URINALYSIS - AUTOMATED METHOD 03/06/2025 10:34 AM [facility] Glucose, Urine Negative Negative mg/dL LAB URINALYSIS - AUTOMATED METHOD 03/06/2025 10:34 AM [facility] Ketones, Urine Negative Negative mg/dL LAB URINALYSIS - AUTOMATED METHOD 03/06/2025 10:34 AM [facility] Urobilinogen, Urine 0.2 0.2 - 1.0 mg/dL LAB URINALYSIS - AUTOMATED METHOD 03/06/2025 10:34 AM [facility] Bilirubin, Urine Negative Negative LAB URINALYSIS - AUTOMATED METHOD 03/06/2025 10:34 AM [facility] Blood, Urine Negative Negative LAB URINALYSIS - AUTOMATED METHOD 03/06/2025 10:34 AM [facility] Urine Urine specimen obtained by clean catch procedure / Unknown 03/06/2025 03/06/2025 8:51 AM EDT us Harris Gross MD LAB URINE ORDERABLES Final Resul t [facility] [address] [place] [address], * Culture urine (03/06/2025 12:00 AM EDT) Culture, Urine <10,000 CFU/mL gram positive cocci, insignificant count, no further workup 03/07/2025 1:00 PM EDT [facility] Urine Urine specimen obtained by clean catch procedure / Unknown 03/06/2025 03/06/2025 8:51 AM EDT Harris Gross MD LAB MICROBIOLOGY - GENERAL ORDER ROEL Final Result [facility] [address] [place] [address], documented in this encounter Visit Diagnoses Diagnosis Altered mental status, unspecified Dysuria documented in this encounter Care Teams Oil Refinery Operator Relationship Specialty Start Date End Date Harris Gross MD [address] [place] [address] [address] [place] [address] PCP - General Geriatric Medicine 02/13/25 documented as of this encounter
== END 2025-05-02 15:09 | disposition home or self-care (01) ==
LOC: HO.HMCH 14:05
PROVIDERS: PCP Internal Medicine; Visit Provider Nurse Practitioner Family
DX: K59.01 Slow transit constipation (principal); R03.1 Nonspecific low blood-pressure reading

== ENCOUNTER → 2025-05-02 14:04 | Outpatient (BNVA) | payer MEDICARE, OTHER, SELFPAY | PROVIDERS: PCP Internal Medicine; Visit Provider Nurse Practitioner Family | DX: K59.01 Slow transit constipation (principal); R03.1 Nonspecific low blood-pressure reading; Z87.891 Personal history of nicotine dependence | CPT/HCPCS: 96127; 99212 ==

== ENCOUNTER 2025-05-08 15:16 | Outpatient (REF) | payer MEDICARE, OTHER, SELFPAY ==
[2025-05-08 16:13] LABS: Appearance Urine Clear; Glucose Urine UA Negative (Negative); PH 5.5 (5.0-9.0); Specific Gravity - Urine 1.010 (1.005-1.025)
--- OUTSIDE RECORDS SUMMARY | 2025-05-08 16:17 | XMS_ITS | Clinical Summary ---
Author Organization [address] [facility] Address [address] [place] [address] Phone Care Team Providers Care Grinder Tender Name Role Phone Harris Gross MD Primary Care Provider [phone] Encounters Date Type Department Care Team Description 03/06/2025 Lab Requisition [facility] [address] [place] [phone] Harris Gross MD Altered mental status, unspecified; Dysuria 02/19/2025 Lab Requisition [facility] [address] [place] [phone] Harris Gross MD Other prison (current) drug therapy 02/13/2025 Lab Requisition [facility] Lab [address] [place] [phone] Harris Gross MD Vitamin D deficiency, unspecified; [...] FOLATE Routine 02/19/2025 5:09 AM EDT Other prison (current) drug therapy VITAMIN B12 Routine 02/13/2025 [...] reflex microscopic (03/06/2025 12:00 AM EDT) Specific [place] Urine 1.008 1.003 - 1.030 LAB URINALYSIS [...] - AUTOMATED METHOD 03/06/2025 10:34 AM EDT [facility] Bilirubin, Urine Negative Negative LAB URINALYSIS - AUTOMATED METHOD 03/06/2025 10:34 AM EDT [facility] Blood, Urine Negative Negative LAB URINALYSIS - AUTOMATED METHOD 03/06/2025 10:34 AM EDT [facility] Urine Urine specimen obtained by clean catch procedure / Unknown 03/06/2025 03/06/2025 8:51 AM EDT us Harris Gross MD LAB URINE ORDERABLES Final Resul t Performing Organization Address City/[facility]/ZIP Co de Phone Number [facility] [address] [place] [address], [place] [phone] * Culture urine (03/06/2025 12:00 AM EDT) Pathologist [facility] Culture, Urine <10,000 CFU/mL gram positive cocci, insignificant count, no further workup 03/07/2025 1:00 PM EDT [facility] Urine Urine specimen obtained by clean catch procedure / Unknown 03/06/2025 03/06/2025 8:51 AM EDT us Harris Gross MD LAB MICROBIOLOGY - GENERAL ORDER ROEL Final Result Performing Organization Address [facility]/State/ZIP Co de Phone Number [facility] [address] [place] [address], [place] [phone] * (ABNORMAL) Folate (02/19/2025 5:09 AM EDT) Folate >20.0(H) 2.8 - 17.0 ng/ml LAB CHEMISTRY METHOD 02/19/2025 8:26 AM EDT [facility] Blood Venous blood specimen / Unknown Venipuncture / Unknown 02/19/2025 5:09 AM EDT 02/19/2025 6:45 AM EDT us Harris Gross MD LAB BLOOD ORDERABLES Final Resul t Performing Organization Address [facility]/ZIP Co de Phone Number [facility] [address] [place] [address], [place] [phone] * Vitamin D 25 hydroxy (02/13/2025 6:49 AM EDT) [facility] Vit D, 25-Hydroxy 57.4 30.0 - 80.0 ng/mL LAB CHEMISTRY METHOD 02/13/2025 11:18 AM EDT [facility] Blood Venous blood specimen / Unknown Venipuncture / Unknown 02/13/2025 6:49 AM EDT 02/13/2025 8:56 AM EDT us Harris Gross MD LAB BLOOD ORDERABLES Final Resul t Performing Organization Address [facility] de Phone Number [facility] [address] [place] [address], [place] [phone] * (ABNORMAL) Complete blood count (02/13/2025 6:49 AM EDT) [facility] WBC 3.3(L) 4.8 - 10.8 K/mcL LAB HEMETOLOGY METHOD 02/13/2025 9:07 AM EDT [facility] RBC 2.90(L) 3.80 - 4.80 M/mcL LAB HEMETOLOGY METHOD 02/13/2025 9:07 AM EDT [facility] Hemoglobin 8.4(L) 11.5 - 16.0 g/dL LAB HEMETOLOGY METHOD 02/13/2025 9:07 AM EDT [facility] Hematocrit 27.2(L) 35.0 - 47.0 % LAB HEMETOLOGY METHOD 02/13/2025 9:07 AM EDT [facility] MCV 94.8 79.0 - 98.0 FL LAB HEMETOLOGY METHOD 02/13/2025 9:07 AM EDT [facility] MCH 29.3 27.0 - 32.0 pcg LAB HEMETOLOGY METHOD 02/13/2025 9:07 AM EDT [facility] MCHC 30.9(L) 32.0 - 37.0 g/dL LAB HEMETOLOGY METHOD 02/13/2025 9:07 AM EDT [facility] RDW 14.9 11.0 - 15.0 % LAB HEMETOLOGY METHOD 02/13/2025 9:07 AM EDT [facility] Platelets 132 130 - 400 K/mcL LAB HEMETOLOGY METHOD 02/13/2025 9:07 AM EDT [facility] MPV 11.8(H) 7.0 - 11.0 FL LAB HEMETOLOGY METHOD 02/13/2025 9:07 AM EDT [facility] NRBC 0.0 <1.0 % LAB HEMETOLOGY METHOD 02/13/2025 9:07 AM [facility] NRBC Absolute 0.00 <0.10 K/mcL LAB HEMETOLOGY METHOD 02/13/2025 9:07 AM [facility] Blood Venous blood specimen / Unknown Venipuncture / Unknown 02/13/2025 6:49 AM EDT 02/13/2025 8:56 AM EDT us Harris Gross MD LAB BLOOD ORDERABLES Final Resul t [facility] [address] [place] [address], * Thyroid stimulating hormone (02/13/2025 6:49 AM EDT) TSH 1.12 0.40 - 4.00 mcIU/mL LAB CHEMISTRY METHOD 02/13/2025 11:19 AM EDT [facility] Blood Venous blood specimen / Unknown Venipuncture / Unknown 02/13/2025 6:49 AM EDT 02/13/2025 8:56 AM EDT us Harris Gross MD LAB BLOOD ORDERABLES Final Resul t [facility] [address] [place] [address], [place] [phone] * Vitamin B12 (02/13/2025 6:49 AM EDT) Pathologist [facility] Vitamin B-12 391 250 - 900 pcg/mL LAB CHEMISTRY METHOD 02/13/2025 10:12 AM EDT [facility] Blood Venous blood specimen / Unknown Venipuncture / Unknown 02/13/2025 6:49 AM EDT 02/13/2025 8:56 AM EDT us Harris Gross MD LAB BLOOD ORDERABLES Final Resul t Performing Organization Address City/[facility]/ZIP Co de Phone Number [facility] [address] [place] [address], [place] [phone] * (ABNORMAL) Comprehensive metabolic panel (02/13/2025 6:49 AM EDT) Pathologist [facility] Sodium 140 133 - 145 mmol/L LAB CHEMISTRY METHOD 02/13/2025 10:12 AM EDT [facility] Potassium 3.8 3.5 - 5.5 mmol/L LAB CHEMISTRY METHOD 02/13/2025 10:12 AM EDT [facility] Chloride 105 96 - 110 mmol/L LAB CHEMISTRY METHOD 02/13/2025 10:12 AM EDT [facility] CO2 29 21 - 32 mmol/L LAB CHEMISTRY METHOD 02/13/2025 10:12 AM EDT [facility] Anion Gap 6 3 [...] LAB BLOOD ORDERABLES Final Resul t [facility] ([facility] [address] [place] [address], from Last 3 Months Insurance MEDICARE [facility] Advance Directives Documents on File Type Date Recorded Patient Police Liaison Expl anation Health Care Decision (hx) 09/07/2023 HE ALTH CARE PROXY Health Care Decision (hx) 03/03/2023 HE ALTH CARE PROXY Care Teams Grinder Tender Relationship Specialty Start Date End Date Harris Gross MD [address] [facility] [address] [place] [address] PCP - General Geriatric Medicine 02/13/25
--- OUTSIDE RECORDS SUMMARY | 2025-05-08 16:17 | XMS_ITS | Encounter Summary ---
Author Organization [facility] Address [address] [place] [address] Care Team Providers Care Director Of Events Name Role Phone Harris Gross MD Primary Care Provider [phone] Encounter Details Date Type Department Care Team (Late st Contact Info) Description 02/13/2025 Lab Requisition [facility] Lab [address] [facility] [place] [address] Harris Gross MD [address] [place], [place] [phone] Vitamin D deficiency, unspecified; Gastrointestinal hemorrhage, unspecified; [...] * Vitamin B12 (02/13/2025 6:49 AM EDT) [facility] Vitamin B-12 391 250 - 900 pcg/mL LAB CHEMISTRY METHOD 02/13/2025 10:12 AM EDT [facility] Blood Venous blood specimen / Unknown Venipuncture / Unknown 02/13/2025 6:49 AM EDT 02/13/2025 8:56 AM EDT us Harris Gross MD LAB BLOOD ORDERABLES Final Resul t Performing Organization Address [facility]/ZIP Co de Phone Number [facility] [address] [place] [address], [place] [phone] * Vitamin D 25 hydroxy (02/13/2025 6:49 AM EDT) [facility] Vit D, 25-Hydroxy 57.4 30.0 - 80.0 ng/mL LAB CHEMISTRY METHOD 02/13/2025 11:18 AM EDT [facility] Blood Venous blood specimen / Unknown Venipuncture / Unknown 02/13/2025 6:49 AM EDT 02/13/2025 8:56 AM EDT us Harris Gross MD LAB BLOOD ORDERABLES Final Resul t [facility] [address] [place] [address], [place] [phone] * Thyroid stimulating hormone (02/13/2025 6:49 AM EDT) [facility] TSH 1.12 0.40 - 4.00 mcIU/mL LAB CHEMISTRY METHOD 02/13/2025 11:19 AM EDT [facility] Blood Venous blood specimen / Unknown Venipuncture / Unknown 02/13/2025 6:49 AM EDT 02/13/2025 8:56 AM EDT Harris Gross MD LAB BLOOD ORDERABLES Final Resul t [facility] [address] [place] [address], [place] [phone] * (ABNORMAL) Comprehensive metabolic panel (02/13/2025 6:49 [...] MD LAB BLOOD ORDERABLES Final Resul t [facility] [address] [place] [address], * (ABNORMAL) Complete blood count (02/13/2025 6:49 [...] LAB BLOOD ORDERABLES Final Resul t [facility] ([facility]) [facility] [address] [place] [address], documented in this encounter Visit Diagnoses Diagnosis Vitamin D deficiency, unspecified Gastrointestinal hemorrhage, unspecified Aphagia Anorexia documented in this encounter Care Teams Director Of Events Relationship Specialty Start Date End Date Harris Gross MD [address] [place] [address] [address] [place] [address] PCP - General Geriatric Medicine 02/13/25 documented as of this encounter
--- OUTSIDE RECORDS SUMMARY | 2025-05-08 16:17 | XMS_ITS | Encounter Summary ---
Author Organization [facility] Address [address] [place] [address] Care Team Providers Care Manufacturing Assembler Name Role Phone Harris Gross MD Primary Care Provider [phone] Encounter Details Date Type Department Care Team (Late st Contact Info) Description 03/06/2025 Lab Requisition [facility] - Main Lab [address] [facility] [place] [address] Harris Gross MD [address] [place], [place] [phone] Altered mental status, unspecified; Dysuria Social History [...] reflex microscopic (03/06/2025 12:00 AM EDT) Specific [facility] Urine 1.008 1.003 - 1.030 LAB URINALYSIS - AUTOMATED METHOD 03/06/2025 10:34 AM [facility] pH, Urine 7.5 5.0 - 8.0 pH LAB URINALYSIS - AUTOMATED METHOD 03/06/2025 10:34 AM [facility] Leukocytes, Urine Negative Negative LAB URINALYSIS - AUTOMATED METHOD 03/06/2025 10:34 AM [facility] Nitrite, Urine Negative Negative LAB URINALYSIS - AUTOMATED METHOD 03/06/2025 10:34 AM [facility] Protein, Urine Negative <=Trace mg/dL LAB URINALYSIS - AUTOMATED METHOD 03/06/2025 10:34 AM [facility] Glucose, Urine Negative Negative mg/dL LAB URINALYSIS - AUTOMATED METHOD 03/06/2025 10:34 AM [facility] Ketones, Urine Negative Negative mg/dL LAB URINALYSIS - AUTOMATED METHOD 03/06/2025 10:34 AM [facility] Urobilinogen, Urine 0.2 0.2 - 1.0 mg/dL LAB URINALYSIS - AUTOMATED METHOD 03/06/2025 10:34 AM [facility] Bilirubin, Urine Negative Negative LAB URINALYSIS - AUTOMATED METHOD 03/06/2025 10:34 AM [facility] Blood, Urine Negative Negative LAB URINALYSIS - AUTOMATED METHOD 03/06/2025 10:34 AM [facility] Urine Urine specimen obtained by clean catch procedure / Unknown 03/06/2025 03/06/2025 8:51 AM EDT us Harris Gross MD LAB URINE ORDERABLES Final Resul t [facility] [address] [place] [address], * Culture urine (03/06/2025 12:00 AM EDT) Culture, Urine <10,000 CFU/mL gram positive cocci, insignificant count, no further workup 03/07/2025 1:00 PM EDT [facility] Urine Urine specimen obtained by clean catch procedure / Unknown 03/06/2025 03/06/2025 8:51 AM EDT Harris Gross MD LAB MICROBIOLOGY - GENERAL ORDER ROEL Final Result [facility] [address] [place] [address], documented in this encounter Visit Diagnoses Diagnosis Altered mental status, unspecified Dysuria documented in this encounter Care Teams Manufacturing Assembler Relationship Specialty Start Date End Date Harris Gross MD [address] [place] [address] [address] [place] [address] PCP - General Geriatric Medicine 02/13/25 documented as of this encounter
--- OUTSIDE RECORDS SUMMARY | 2025-05-08 16:17 | XMS_ITS | Clinical Summary ---
Author Organization [facility] Address [address] [place] [address] Phone Care Team Providers Care Airport Guide Name Role Phone Nick Gomez Primary Care [...] ZOSTER VACCINES (2 of 3) 11/24/2016 09/29/2016 INFLUENZA VACCINE (#1) 2025 , 07/22/2021, 06/17/2018, Additional history exists COVID-19 VACCINE ( season) 2025 08/19/2021, 06/29/2021, 10/30/2020, Additional history exists Adult [...] file Insurance MEDICARE PART A & B [facility] MEDICARE SUPPLEMENT MEDICARE PART A & B [employer] MEDICARE SUPPLEMENT MEDICARE PART A & B [employer] MEDICARE SUPPLEMENT MEDICARE PART A & B [facility] MEDICARE SUPPLEMENT MEDICARE PART A & B [facility] [employer] MEDICARE SUPPLEMENT MEDICARE PART A & B [facility] MEDICARE SUPPLEMENT MEDICARE PART A & B [facility] MEDICARE SUPPLEMENT MEDICARE PART A & B Member Subscriber Plan / Payer (Ef fective 2005-Present) Name:Bella Henley Member ID:[id number] Relation to Subscriber:Self Name:Bella Henley Subscriber ID:[id number] Payer ID:[id number] Group ID:Not on file Type:Medicare Address: [place] [address] [place] [id number] [facility] MEDICARE SUPPLEMENT MEDICARE PART A & B [facility] SU[facility]LE[facility] Care Teams Airport Guide Relationship Specialty Start Date End Date Nick Gomez PA [address] [place] [address] PCP - General Physician Child Psychology Teacher 05/14/23 Additional Source Comments The information contained in this document represents components of the legal health record. It is not the complete legal health record.[facility]
--- OUTSIDE RECORDS SUMMARY | 2025-05-08 16:17 | XMS_ITS | Encounter Summary ---
Author Organization [facility] Address [address] [place] [address] Care Team Providers Care Irrigation Installation Specialist Name Role Phone Harris Gross MD Primary Care Provider [phone] Encounter Details Date Type Department Care Team (Late st Contact Info) Description 02/19/2025 Lab Requisition [facility] - Main Lab [address] [facility] [address] Harris Gross MD [address] [place], [place] [phone] Other long-term (current) drug therapy Social History Tobacco Use [...] FOLATE Routine 02/19/2025 5:09 AM EDT Other long-term (current) drug therapy documented in this encounter Results * (ABNORMAL) Folate (02/19/2025 5:09 AM EDT) Folate >20.0(H) 2.8 - 17.0 ng/ml LAB CHEMISTRY METHOD 02/19/2025 8:26 AM EDT [facility] ([facility]) [facility] Blood Venous blood specimen / Unknown Venipuncture / Unknown 02/19/2025 5:09 AM EDT 02/19/2025 6:45 AM EDT Harris Gross MD LAB BLOOD ORDERABLES Final Resul t [facility] ([facility]) [facility] [address] [place] [address], documented in this encounter Visit Diagnoses Diagnosis Other long-term (current) drug therapy documented in this encounter Care Teams Irrigation Installation Specialist Relationship Specialty Start Date End Date Harris Gross MD [address] [place] [address] [address] [place] [address] PCP - General Geriatric Medicine 02/13/25 documented as of this encounter
--- OUTSIDE RECORDS SUMMARY | 2025-05-08 16:17 | XMS_ITS | Encounter Summary ---
Author Organization [facility] Address [address] [place] [address] Phone Care Team Providers Care Warehouse Insulation Worker Name Role Phone Norm Bates Unavailable [phone] Verónica Nielson MD Unavailable [phone] Bandar Renteria MD Unavailable [phone] Luis Milner CNP Unavailable [phone] Martha Estrada MD Unavailable [phone] David Walton MD Unavailable [phone] Deny Saleh DO Primary Care Provider [phone] Bandar Renteria MD Primary Care Provider Nick Gomez Primary Care Provider + Encounter Details Date Type Department Care Team (Late st Contact Info) Description 12/14/2020 Transcribe Orders [facility] [address] [place] [address] Deny Saleh DO [address] [facility] [address] [place], [place] [phone] [email or web address] Social History Tobacco Use Types Packs/Day Years [...] on filedocumented in this encounter Care Teams Warehouse Insulation Worker Relationship Specialty Start Date End Date Nunudelfina Deny SawyerDO [address] [place] [address] [email or web address] PCP - General Internal Medicine 08/09/17 01/09/21 Bandar Renteria MD [address] [place] [address] [address] PCP - General Internal Medicine 01/10/21 05/13/23 Nick Gomez PA [address] [place] [address] PCP - General Physician Polygraph Examiner 05/14/23 Norm Bates PA [address] [place] [address] Historical LMR Provider 06/22/17 2 Verónica Nielson MD [address] [address] [email or web address] Historical LMR Provider 06/22/17 Bandar Renteria MD [address] [place] [address] [address] Historical LMR Provider 06/22/17 2 Luis Milner CNP [address] [place] [address] Historical LMR Provider 06/22/17 09/11/21 Martha Estrada MD 4 [facility], [facility] [address] [email or web address] Historical LMR Provider 06/22/17 David Walton MD [address] [place] [address] Historical LMR Provider 06/22/17 2 documented as of this encounter Additional Source Comments The information contained in this document represents components of the legal health record. It is not the complete legal health record.[facility]
== END 2025-05-08 15:17 | disposition home or self-care (01) ==
LOC: HO.HMGCLDS 15:16
PROVIDERS: PCP Internal Medicine; Visit Provider Nurse Practitioner Family
DX: N39.0 Urinary tract infection, site not specified (principal)
CPT/HCPCS: 81003

== ENCOUNTER 2025-05-14 13:50 | Outpatient (REF) | payer MEDICARE, OTHER, SELFPAY ==
[2025-05-15 08:38] LABS: Chlamydia pneumoniae PCR Not Detected (Not Detect.); Coronavirus 229E PCR Not Detected (Not Detect.); Coronavirus HKU1 PCR Not Detected (Not Detect.); Coronavirus NL63 PCR Not Detected (Not Detect.); Coronavirus OC43 PCR Not Detected (Not Detect.); Influenza A H1 PCR Not Detected (Not Detect.); Influenza A H1-2009 PCR Not Detected (Not Detect.); Influenza A H3 PCR Not Detected (Not Detect.); RSV PCR Not Detected (Not Detect.); Rhino/Enterovirus PCR Not Detected (Not Detect.); SARS-CoV-2 PCR Not Detected (Not Detect.)
== END 2025-05-14 13:51 | disposition home or self-care (01) ==
LOC: HO.LAB 13:50
PROVIDERS: Physician Assistant; PCP Internal Medicine
DX: J06.9 Acute upper respiratory infection, unspecified (principal); N39.0 Urinary tract infection, site not specified; R42 Dizziness and giddiness; R06.02 Shortness of breath; R25.1 Tremor, unspecified; R41.0 Disorientation, unspecified; K59.00 Constipation, unspecified; R35.0 Frequency of micturition; G47.00 Insomnia, unspecified; R05.3 Chronic cough
CPT/HCPCS: 81003; 87086; 87633; 99212

== ENCOUNTER 2025-05-14 13:50 | Outpatient (AMB) | payer MEDICARE, OTHER, SELFPAY ==
--- NOTE | 2025-05-14 13:59 | AM.OFFWIN_ITS ---
Intake Vital Signs 05/14/25 14:00 Height 5 ft 6 in BMI Reason not done Patient refused/unable BP 120/56 L Blood Pressure Location Lt brachial Position Sitting Pulse 89 Pulse Source Pulse Oximeter Temp 97.9 F Temp Source Oral Pulse Oximetry (%) 97 Oxygen Delivery Method Room Air Intake Visit Reasons: EP Dizzy, sob, shakiness Intake Note: pt presents with body shakes, dizzy, SOB, feels sweaty, lightheaded - s/s started this morning Patient Tobacco Use Status: Former Tobacco user Allergies buspirone Allergy (Intermediate, Verified 05/14/25 14:03) Rash Sulfa (Sulfonamide Antibiotics) Allergy (Intermediate, Verified 05/14/25 14:03) RASH cefuroxime Allergy (Unknown, Verified 05/14/25 14:03) Unknown garlic (GARLIC) Allergy (Unknown, Verified 05/14/25 14:03) PER H&P metronidazole (From FLAGYL) Allergy (Unknown, Verified 05/14/25 14:03) OCULAR MIGRAINES penicillamine Allergy (Unknown, Verified 05/14/25 14:03) Unknown ciprofloxacin Adverse Reaction (Intermediate, Verified 05/14/25 14:03) neuropathic pain lisinopril Adverse Reaction (Intermediate, Verified 05/14/25 14:03) Cough loratadine (From Claritin) Adverse Reaction (Mild, Verified 05/14/25 14:07) Fatigued nitrofurantoin Adverse Reaction (Mild, Verified 05/14/25 14:03) GI side effects cefuroxime Allergy (Intermediate, Uncoded 04/25/25 09:35) wheezy cough/itch flagyl Allergy (Unknown, Uncoded 04/25/25 09:35) Unknown From KEFLEX Allergy (Unknown, Uncoded 04/25/25 09:35) RASH Metoprolol Tartrate Allergy (Unknown, Uncoded 04/25/25 09:35) Unknown Sulfacet-R Allergy (Unknown, Uncoded 04/25/25 09:35) Unknown Do you need a note to return to daycare/school/sports/work: No HPI HPI Comments History of Present Illness Details History - The patient is an 84-year-old female p resenting with dizziness, lightheadedness, and urinary issues. - Feeling fuzzy and a little confused, a little sweaty, denies fevers but feels warm and chills. - Also c/o insomnia and appetite changes . - Dizziness and lightheadedness have wor sened following an increase in Wellbutrin dosage last week. - The patient has a persistent cough wit h pale yellow sputum and occasional shortness of breath. - Urinary frequency has been managed wit h medication adjustments in her mirabegron, showing some improvement. - Constipation has led to two hospitaliz ations for management. - She has a history of falls and is on P lavix, fell last week denies loc or hitting head; with a previous wrist fracture from a fall. - Lives with her son, who is here with h er today. Physical Exam General: Cooperative, healthy appearing, comfortable and no acute distress Orientation/consciousness: Patient oriented x3 Limitations: sitting in wheelchair Head: Normal to inspection Ears: Hearing grossly normal bilaterally, external ears normal Nose: Normal external nose present, Normal nares present and No nasal discharge present Face and sinus: Normal facial exam Mouth: Normal oral and palatal mucosa present and moist mucous membranes Eyes: Appearance normal, both eyes and all related structures Neck: Normal visual inspection, full ROM Respiratory: Clear to auscultation bilaterally. Normal respiratory effort, able to speak in complete sentences, Actively coughing, no respiratory distress, not tachypneic, no tripod positioning and no use of accessory muscles. Cardiovascular: Regular rate and rhythm. Normal S1 and S2 Skin: No rashes or lesions noted Neuro: Patient oriented x3 Extremities: Normal to inspection and Yes no clubbing, cyanosis or edema [facility] Medical History (Updated 05/14/25 @ 14:31 by Janet Rojas PA-C) Dizziness Nonspecific low blood pressure reading Annual wellness visit Acute diverticulitis LLQ abdominal pain Contusion of right lower leg Otitis media Cough Bronchitis Pelvic pain Chronic cough Elevated IgE level Status post fall Hip pain Post-menopausal URI (upper respiratory infection) Sensation of pressure in bladder area Chest pain Elevated blood sugar Oral candidiasis GERD (gastroesophageal reflux disease) Pulmonary nodule HTN (hypertension) Heart palpitations Constipation Breast cancer screening Breast pain, left Elevated vitamin B12 level Neck muscle spasm Strain of neck muscle Low back pain Pubic ramus fracture Sore throat Skin tear of upper arm without complication Head injury, acute, without loss of consciousness Fall Medication noncompliance due to cognitive impairment RLQ abdominal pain Sinusitis Flu syndrome Precordial chest pain Atypical chest pain Cold intolerance Former smoker Abnormal lung sounds Fever Bilateral calf pain Nausea Left lower quadrant abdominal pain Dysuria Fatigue Lower extremity weakness Aortic stenosis Obstipation Dark stools Lower abdominal pain Gastroenteritis Neck pain on right side Back pain Rhinitis Elevated BP without diagnosis of hypertension Non-rheumatic aortic stenosis Diverticulitis GERD (gastroesophageal reflux disease) Cat scratch Cat bite Epigastric discomfort Diarrhea Neuropathy Arthritis GERD (gastroesophageal reflux disease) HTN (hypertension) Irritable bowel Heart murmur Surgical History S/P AVR S/P TAVR (transcatheter aortic valve replacement) Hx of esophagogastroduodenoscopy Hx of colonoscopy History of tonsillectomy History of appendectomy Family History Father No problems noted. Mother No problems noted. Social History Household Members: Children Housing: House Are you a primary ocular care aide to a significant other at home: No Do you presently have visiting nurse or other home services: No Alcohol intake: never Comment: Pt still ambulate on her own even though alarms are on Patient Tobacco Use Status: Former Tobacco user Tobacco use type: Cigarette Years Smoked: 55 e-Cigarette/Vaping Use: Never Used Second Hand Smoke Exposure: Yes Advance Directives Date on File: 03/28/23 service: No Current occupational status: retired Cognitive needs: No Hearing needs: No Vision needs: Yes (glasses) Review of Systems Const All systems reviewed & are unremarkable except as noted in HPI and below Physical Exam Vital Signs: Last Vital Signs Temp 97.9 F 05/14/25 14:00 Pulse 89 05/14/25 14:00 BP 120/56 L 05/14/25 14:00 Pulse Ox 97 05/14/25 14:00 Oxygen Delivery Method Room Air 05/14/25 14:00 Assessment & Plan Assessment & Plan (1) Dizziness: Code(s): R42 - Dizziness and giddiness Plan: Patient was informed and verbally consented to the use of an ambient scribe for clinic note documentation during this visit. - VSS, pt well appearing and PE unremarkable - Perform a urine test to rule out urinary tract infection. - UA 1+ leuks, neg nitrites, neg blood. Sent for urine culture, as it may not result prior to weekend, sent RX for cefuroxime which pt was instructed to pepper picker if symptoms worsen. - Conducted a viral panel to exclude respiratory viral infections. - Consider the recent increase in Wellbutrin dosage as a potential cause of symptoms, if not tolerable, follow up with prescriber of this medication. Orders: Orders Resp Pathogen Panel - [facility] [place] Today J06.9 - Acute upper respiratory infection, unspecified Urine Culture Today N39.0 - Urinary tract infection, site not specified Medications: New cefuroxime axetil 500 mg PO Q12H 10 tabs 0RF Coding Level of Care Code Est Pt Level 4 (95407) Diagnoses Dizziness R42
[2025-05-14 14:00] VITALS: BP 120/56; PULSE 89; TEMP 36.6; O2SAT 97
--- OUTSIDE RECORDS SUMMARY | 2025-05-14 16:54 | XMS_ITS | Encounter Summary ---
Author Organization [facility] Address [address] [place] [address] Care Team Providers Care Respiratory Manager Name Role Phone Harris Gross MD Primary Care Provider [phone] Encounter Details Date Type Department Care Team (Late st Contact Info) Description 02/19/2025 Lab Requisition [facility] - Main Lab [address] [facility] [place] [address] Harris Gross MD [address] [place], [place] [address] Other terminal manager (current) drug therapy Social History Tobacco Use [...] Routine 02/19/2025 5:09 AM EDT Other senior living (current) drug therapy documented in this encounter Results * (ABNORMAL) Folate (02/19/2025 5:09 AM EDT) Folate >20.0(H) 2.8 - 17.0 ng/ml LAB CHEMISTRY METHOD 02/19/2025 8:26 AM EDT [facility] Blood Venous blood specimen / Unknown Venipuncture / Unknown 02/19/2025 5:09 AM EDT 02/19/2025 6:45 AM EDT Harris Gross MD LAB BLOOD ORDERABLES Final Resul t [facility] [address] [place] [address], documented in this encounter Visit Diagnoses Diagnosis Other senior living (current) drug therapy documented in this encounter Care Teams Respiratory Manager Relationship Specialty Start Date End Date Harirs Gross MD [address] [place] [address] [address] [place] [address] PCP - General Geriatric Medicine 02/13/25 documented as of this encounter
--- OUTSIDE RECORDS SUMMARY | 2025-05-14 16:54 | XMS_ITS | Encounter Summary ---
Author Organization [facility] Address [address] [place] [address] Care Team Providers Care School Curriculum Developer Name Role Phone Harris Gross MD Primary Care Provider [phone] Encounter Details Date Type Department Care Team (Late st Contact Info) Description 02/13/[address] [facility] - Main Lab [address] [facility] [place] [address] Harris Gross MD [address] [place], [place] [id number] Vitamin D deficiency, unspecified; Gastrointestinal hemorrhage, unspecified; [...] * Vitamin B12 (02/13/2025 6:49 AM EDT) [facility] Vitamin B-12 391 250 - 900 pcg/mL LAB CHEMISTRY METHOD 02/13/2025 10:12 AM EDT [facility] Blood Venous blood specimen / Unknown Venipuncture / Unknown 02/13/2025 6:49 AM EDT 02/13/2025 8:56 AM EDT us Harris Gross MD LAB BLOOD ORDERABLES Final Resul t Performing Organization Address [facility]/ZIP Co de Phone Number [facility] [address] [place] [address], [place] [phone] * Vitamin D 25 hydroxy (02/13/2025 6:49 AM EDT) [facility] Vit D, 25-Hydroxy 57.4 30.0 - 80.0 ng/mL LAB CHEMISTRY METHOD 02/13/2025 11:18 AM EDT [facility] Blood Venous blood specimen / Unknown Venipuncture / Unknown 02/13/2025 6:49 AM EDT 02/13/2025 8:56 AM EDT us Harris Gross MD LAB BLOOD ORDERABLES Final Resul t [facility] [address] [place] [address], [place] [phone] * Thyroid stimulating hormone (02/13/2025 6:49 AM EDT) [facility] TSH 1.12 0.40 - 4.00 mcIU/mL LAB CHEMISTRY METHOD 02/13/2025 11:19 AM EDT [facility] Blood Venous blood specimen / Unknown Venipuncture / Unknown 02/13/2025 6:49 AM EDT 02/13/2025 8:56 AM EDT Harris Gross MD LAB BLOOD ORDERABLES Final Resul t [facility] [address] [place] [address], [place] [phone] * (ABNORMAL) Comprehensive metabolic panel (02/13/2025 6:49 [...] MD LAB BLOOD ORDERABLES Final Resul t [facility] [address] [place] [address], * (ABNORMAL) Complete blood count (02/13/2025 6:49 [...] MD LAB BLOOD ORDERABLES Final Resul t [facility] [address] [place] [address], documented in this encounter Visit Diagnoses Diagnosis Vitamin D deficiency, unspecified Gastrointestinal hemorrhage, unspecified Aphagia Anorexia documented in this encounter Care Teams School Curriculum Developer Relationship Specialty Start Date End Date Harris Gross MD [address] [place] [address] [address] [place] [address] PCP - General Geriatric Medicine 02/13/25 documented as of this encounter
--- OUTSIDE RECORDS SUMMARY | 2025-05-14 16:54 | XMS_ITS | Encounter Summary ---
Author Organization [facility] Address [address] [place] [address] Phone Care Team Providers Care Evaluation Assistant Name Role Phone Norm Bates Unavailable [phone] Verónica Nielson MD Unavailable [phone] Bandar Renteria MD Unavailable [phone] Luis Milner CNP Unavailable [phone] Martha Estrada MD Unavailable [phone] David Walton MD Unavailable [phone] Deny Saleh DO Primary Care Provider [phone] Bandar Renteria MD Primary Care Provider Nick Gomez Primary Care Provider + Encounter Details Date Type Department Care Team (Late st Contact Info) Description 12/14/2020 Transcribe Orders [facility] Laboratory [address] [place] [address] Deny Saleh DO [address] [facility] [address] [place], [place] [id number] [email or web address] Social History Tobacco Use Types Packs/Day Years [...] on filedocumented in this encounter Care Teams Evaluation Assistant Relationship Specialty Start Date End Date Nunudelfina Deny SawyerDO [address] [place] [address] [email or web address] PCP - General Internal Medicine 08/09/17 01/09/21 Bandar Renteria MD [address] [place] [address] [address] PCP - General Internal Medicine 01/10/21 05/13/23 Nick Gomez PA [address] [place] [address] PCP - General Physician Document Analyst 05/14/23 Norm Bates PA [address] [place] [address] Historical LMR Provider 06/22/17 2 Verónica Nielson MD [address] [address] [email or web address] Historical LMR Provider 06/22/17 Bandar Renteria MD [address] [place] [address] [address] Historical LMR Provider 06/22/17 2 Luis Milner CNP [address] [place] [address] Historical LMR Provider 06/22/17 09/11/21 Martha Estrada MD [address] [facility], [facility] [place] [address] [email or web address] Historical LMR Provider 06/22/17 David Walton MD [address] [place] [address] Historical LMR Provider 06/22/17 2 documented as of this encounter Additional Source Comments The information contained in this document represents components of the legal health record. It is not the complete legal health record.[facility]
--- OUTSIDE RECORDS SUMMARY | 2025-05-14 16:54 | XMS_ITS | Encounter Summary ---
Author Organization [facility] Address [address] [place] [address] Care Team Providers Care Glass Silverer Name Role Phone Harris Gross MD Primary Care Provider [phone] Encounter Details Date Type Department Care Team (Late st Contact Info) Description 03/06/[address] [facility] - Main Lab [address] [facility] [place] [address] Harris Gross MD [address] [place], [place] [phone] Altered mental status, unspecified; Dysuria Social History [...] reflex microscopic (03/06/2025 12:00 AM EDT) Specific [place] Urine 1.008 1.003 - 1.030 LAB URINALYSIS - AUTOMATED METHOD 03/06/2025 10:34 AM [facility] pH, Urine 7.5 5.0 - 8.0 pH LAB URINALYSIS - AUTOMATED METHOD 03/06/2025 10:34 AM [facility] Leukocytes, Urine Negative Negative LAB URINALYSIS - AUTOMATED METHOD 03/06/2025 10:34 AM [facility] Nitrite, Urine Negative Negative LAB URINALYSIS - AUTOMATED METHOD 03/06/2025 10:34 AM [facility] Protein, Urine Negative <=Trace mg/dL LAB URINALYSIS - AUTOMATED METHOD 03/06/2025 10:34 AM [facility] Glucose, Urine Negative Negative mg/dL LAB URINALYSIS - AUTOMATED METHOD 03/06/2025 10:34 AM [facility] Ketones, Urine Negative Negative mg/dL LAB URINALYSIS - AUTOMATED METHOD 03/06/2025 10:34 AM [facility] Urobilinogen, Urine 0.2 0.2 - 1.0 mg/dL LAB URINALYSIS - AUTOMATED METHOD 03/06/2025 10:34 AM [facility] Bilirubin, Urine Negative Negative LAB URINALYSIS - AUTOMATED METHOD 03/06/2025 10:34 AM [facility] Blood, Urine Negative Negative LAB URINALYSIS - AUTOMATED METHOD 03/06/2025 10:34 AM [facility] Urine Urine specimen obtained by clean catch procedure / Unknown 03/06/2025 03/06/2025 8:51 AM EDT us Harris Gross MD LAB URINE ORDERABLES Final Resul t [facility] [address] [place] [address], * Culture urine (03/06/2025 12:00 AM EDT) Culture, Urine <10,000 CFU/mL gram positive cocci, insignificant count, no further workup 03/07/2025 1:00 PM EDT [facility] Urine Urine specimen obtained by clean catch procedure / Unknown 03/06/2025 03/06/2025 8:51 AM EDT Harris Gross MD LAB MICROBIOLOGY - GENERAL ORDER ROEL Final Result [facility] [address] [place] [address], documented in this encounter Visit Diagnoses Diagnosis Altered mental status, unspecified Dysuria documented in this encounter Care Teams Glass Silverer Relationship Specialty Start Date End Date Harris Gross MD [address] [place] [address] [address] [place] [address] PCP - General Geriatric Medicine 02/13/25 documented as of this encounter
--- OUTSIDE RECORDS SUMMARY | 2025-05-14 16:54 | XMS_ITS | Clinical Summary ---
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..] 10/03/2023 Social Influencers of Health Screening 10/03/2023 Depression Screening 09/04/2024 COVID-19 Vaccine (3 2024-2 6 season) 2025 06/29/2021, 10/30/2020 Influenza Vaccine (#1) 2025 , 06/17/2018, 05/07/2018 [...] FOLATE Routine 02/19/2025 5:09 AM EDT Other long term acute care registered nurse (current) drug therapy VITAMIN B12 Routine 02/13/2025 [...] reflex microscopic (03/06/2025 12:00 AM EDT) Specific [place] Urine 1.008 1.003 - 1.030 LAB URINALYSIS - AUTOMATED METHOD 03/06/2025 10:34 AM [facility] pH, Urine 7.5 5.0 - 8.0 pH LAB URINALYSIS - AUTOMATED METHOD 03/06/2025 10:34 AM [facility] Leukocytes, Urine Negative Negative LAB URINALYSIS - AUTOMATED METHOD 03/06/2025 10:34 AM [facility] Nitrite, Urine Negative Negative LAB URINALYSIS - AUTOMATED METHOD 03/06/2025 10:34 AM [facility] Protein, Urine Negative <=Trace mg/dL LAB URINALYSIS - AUTOMATED METHOD 03/06/2025 10:34 AM [facility] Glucose, Urine Negative Negative mg/dL LAB URINALYSIS - AUTOMATED METHOD 03/06/2025 10:34 AM [facility] Ketones, Urine Negative Negative mg/dL LAB URINALYSIS - AUTOMATED METHOD 03/06/2025 10:34 AM [facility] Urobilinogen, Urine 0.2 0.2 - 1.0 mg/dL LAB URINALYSIS - AUTOMATED METHOD 03/06/2025 10:34 AM EDT [facility] Bilirubin, Urine Negative Negative LAB URINALYSIS - AUTOMATED METHOD 03/06/2025 10:34 AM EDT [facility] Blood, Urine Negative Negative LAB URINALYSIS - AUTOMATED METHOD 03/06/2025 10:34 AM EDT [facility] Urine Urine specimen obtained by clean catch procedure / Unknown 03/06/2025 03/06/2025 8:51 AM EDT us Harris Gross MD LAB URINE ORDERABLES Final Resul t Performing Organization Address City/[facility]/ZIP Co de Phone Number [facility] [address] [place] [address], [place] [phone] * Culture urine (03/06/2025 12:00 AM EDT) Pathologist [facility] Culture, Urine <10,000 CFU/mL gram positive cocci, insignificant count, no further workup 03/07/2025 1:00 PM EDT [facility] Urine Urine specimen obtained by clean catch procedure / Unknown 03/06/2025 03/06/2025 8:51 AM EDT us Harris Gross MD LAB MICROBIOLOGY - GENERAL ORDER ROEL Final Result Performing Organization Address [facility]/State/ZIP Co de Phone Number [facility] [address] [place] [address], [place] [phone] * (ABNORMAL) Folate (02/19/2025 5:09 AM EDT) Folate >20.0(H) 2.8 - 17.0 ng/ml LAB CHEMISTRY METHOD 02/19/2025 8:26 AM EDT [facility] Blood Venous blood specimen / Unknown Venipuncture / Unknown 02/19/2025 5:09 AM EDT 02/19/2025 6:45 AM EDT us Harris Gross MD LAB BLOOD ORDERABLES Final Resul t Performing Organization Address [facility]/ZIP Co de Phone Number [facility] [address] [place] [address], [place] [phone] * Vitamin D 25 hydroxy (02/13/2025 6:49 AM EDT) [facility] Vit D, 25-Hydroxy 57.4 30.0 - 80.0 ng/mL LAB CHEMISTRY METHOD 02/13/2025 11:18 AM EDT [facility] Blood Venous blood specimen / Unknown Venipuncture / Unknown 02/13/2025 6:49 AM EDT 02/13/2025 8:56 AM EDT us Harris Gross MD LAB BLOOD ORDERABLES Final Resul t Performing Organization Address [facility] de Phone Number [facility] [address] [place] [address], [place] [phone] * (ABNORMAL) Complete blood count (02/13/2025 6:49 AM EDT) [facility] WBC 3.3(L) 4.8 - 10.8 K/mcL LAB HEMETOLOGY METHOD 02/13/2025 9:07 AM EDT [facility] RBC 2.90(L) 3.80 - 4.80 M/mcL LAB HEMETOLOGY METHOD 02/13/2025 9:07 AM EDT [facility] Hemoglobin 8.4(L) 11.5 - 16.0 g/dL LAB HEMETOLOGY METHOD 02/13/2025 9:07 AM EDT [facility] Hematocrit 27.2(L) 35.0 - 47.0 % LAB HEMETOLOGY METHOD 02/13/2025 9:07 AM EDT [facility] MCV 94.8 79.0 - 98.0 FL LAB HEMETOLOGY METHOD 02/13/2025 9:07 AM EDT [facility] MCH 29.3 27.0 - 32.0 pcg LAB HEMETOLOGY METHOD 02/13/2025 9:07 AM EDT [facility] MCHC 30.9(L) 32.0 - 37.0 g/dL LAB HEMETOLOGY METHOD 02/13/2025 9:07 AM EDT [facility] RDW 14.9 11.0 - 15.0 % LAB HEMETOLOGY METHOD 02/13/2025 9:07 AM EDT [facility] Platelets 132 130 - 400 K/mcL LAB HEMETOLOGY METHOD 02/13/2025 9:07 AM EDT [facility] MPV 11.8(H) 7.0 - 11.0 FL LAB HEMETOLOGY METHOD 02/13/2025 9:07 AM EDT [facility] NRBC 0.0 <1.0 % LAB HEMETOLOGY METHOD 02/13/2025 9:07 AM [facility] NRBC Absolute 0.00 <0.10 K/mcL LAB HEMETOLOGY METHOD 02/13/2025 9:07 AM [facility] Blood Venous blood specimen / Unknown Venipuncture / Unknown 02/13/2025 6:49 AM EDT 02/13/2025 8:56 AM EDT us Harris Gross MD LAB BLOOD ORDERABLES Final Resul t [facility] [address] [place] [address], * Thyroid stimulating hormone (02/13/2025 6:49 AM EDT) TSH 1.12 0.40 - 4.00 mcIU/mL LAB CHEMISTRY METHOD 02/13/2025 11:19 AM EDT [facility] Blood Venous blood specimen / Unknown Venipuncture / Unknown 02/13/2025 6:49 AM EDT 02/13/2025 8:56 AM EDT us Harris Gross MD LAB BLOOD ORDERABLES Final Resul t [facility] [address] [place] [address], [place] [phone] * Vitamin B12 (02/13/2025 6:49 AM EDT) Pathologist [facility] Vitamin B-12 391 250 - 900 pcg/mL LAB CHEMISTRY METHOD 02/13/2025 10:12 AM EDT [facility] Blood Venous blood specimen / Unknown Venipuncture / Unknown 02/13/2025 6:49 AM EDT 02/13/2025 8:56 AM EDT us Harris Gross MD LAB BLOOD ORDERABLES Final Resul t Performing Organization Address City/[facility]/ZIP Co de Phone Number [facility] [address] [place] [address], [place] [phone] * (ABNORMAL) Comprehensive metabolic panel (02/13/2025 6:49 AM EDT) Pathologist [facility] Sodium 140 133 - 145 mmol/L LAB CHEMISTRY METHOD 02/13/2025 10:12 AM EDT [facility] Potassium 3.8 3.5 - 5.5 mmol/L LAB CHEMISTRY METHOD 02/13/2025 10:12 AM EDT [facility] Chloride 105 96 - 110 mmol/L LAB CHEMISTRY METHOD 02/13/2025 10:12 AM EDT [facility] CO2 29 21 - 32 mmol/L LAB CHEMISTRY METHOD 02/13/2025 10:12 AM EDT [facility] Anion Gap 6 3 - [...] Resul t [facility] [address] [place] [address], from Last 3 Months Insurance MEDICARE [facility] Advance Directives Documents on File Type Date Recorded Patient Cotton Factor Expl anation Health Care Decision (hx) 09/07/2023 HE ALTH CARE PROXY Health Care Decision (hx) 03/03/2023 HE ALTH CARE PROXY Care Teams Production Wood Craftsman Relationship Specialty Start Date End Date Harris Gross MD [address] [facility] [address] [place] [address] PCP - General Geriatric Medicine 02/13/25
--- OUTSIDE RECORDS SUMMARY | 2025-05-14 16:55 | XMS_ITS | Clinical Summary ---
Author Organization [facility] Address [address] [place] [phone] Phone Care Team Providers Care Document Analyst Name Role Phone Nick Gomez Primary Care [...] file Insurance MEDICARE PART A & B [facility] MEDICARE SUPPLEMENT MEDICARE PART A & B [employer] MEDICARE SUPPLEMENT MEDICARE PART A & B [employer] MEDICARE SUPPLEMENT MEDICARE PART A & B [facility] MEDICARE SUPPLEMENT MEDICARE PART A & B [facility] MEDICARE SUPPLEMENT MEDICARE PART A & B [facility] MEDICARE SUPPLEMENT MEDICARE PART A & B [facility] MEDICARE SUPPLEMENT MEDICARE PART A & B Member Subscriber Plan / Payer (Ef fective 2005-Present) Name:Bella Henley Member ID:[id number] Relation to Subscriber:Self Name:Bella Henley Subscriber ID:[id number] Payer ID:[id number] Group ID:Not on file Type:Medicare Address: [employer] [address] [place] [id number] [facility] MEDICARE SUPPLEMENT MEDICARE PART A & B [facility] SUPPLE[facility] Care Teams Document Analyst Relationship Specialty Start Date End Date Nick Gomez PA [address] [place] [phone] PCP - General Physician Machine Setter Supervisor 05/14/23 Additional Source Comments The information contained in this document represents components of the legal health record. It is not the complete legal health record.[facility]
== END 2025-05-14 16:08 | disposition home or self-care (01) ==
PROVIDERS: PCP Internal Medicine; Visit Provider Physician Assistant
DX: Z13.9 Encounter for screening, unspecified (principal)

== ENCOUNTER 2025-05-16 15:04 | Outpatient (REF) | payer MEDICARE, OTHER, SELFPAY ==
--- OUTSIDE RECORDS SUMMARY | 2025-05-16 17:35 | XMS_ITS | Encounter Summary ---
Author Organization [facility] Address [address] [place] [address] Care Team Providers Care Director Funeral Name Role Phone Harris Gross MD Primary Care Provider [phone] Encounter Details Date Type Department Care Team (Late st Contact Info) Description 03/06/2025 Lab Requisition [facility] - Main Lab [address] [facility] [place] [address] Harris Gross MD [address] [place], [place] [id number] Altered mental status, unspecified; Dysuria Social History [...] reflex microscopic (03/06/2025 12:00 AM EDT) Specific [place] Urine 1.008 1.003 - 1.030 LAB URINALYSIS [...] MD LAB URINE ORDERABLES Final Resul t [facility] [address] [place] [address], * Culture urine (03/06/2025 12:00 AM EDT) Culture, Urine <10,000 CFU/mL gram positive cocci, insignificant count, no further workup 03/07/2025 1:00 PM EDT [facility] Urine Urine specimen obtained by clean catch procedure / Unknown 03/06/2025 03/06/2025 8:51 AM EDT Harris Gross MD LAB MICROBIOLOGY - GENERAL ORDER OREL Final Result [facility] [address] [place] [address], documented in this encounter Visit Diagnoses Diagnosis Altered mental status, unspecified Dysuria documented in this encounter Care Teams Director Funeral Relationship Specialty Start Date End Date Harris Gross MD [address] [place] [address] [address] [place] [address] PCP - General Geriatric Medicine 02/13/25 documented as of this encounter
--- OUTSIDE RECORDS SUMMARY | 2025-05-16 17:35 | XMS_ITS | Clinical Summary ---
Author Organization [facility] Address [address] [place] [address] Phone Care Team Providers Care High Raw Sugar Boiler Name Role Phone Nick Gomez Primary Care [...] file Insurance MEDICARE PART A & B [facility] MEDICARE SUPPLEMENT MEDICARE PART A & B [employer] MEDICARE SUPPLEMENT MEDICARE PART A & B [employer] MEDICARE SUPPLEMENT MEDICARE PART A & B [facility] MEDICARE SUPPLEMENT MEDICARE PART A & B [facility] MEDICARE SUPPLEMENT MEDICARE PART A & B [facility] MEDICARE SUPPLEMENT MEDICARE PART A & B [facility] MEDICARE SUPPLEMENT MEDICARE PART A & B Member Subscriber Plan / Payer (Ef fective 2005-Present) Name:Bella Henley Member ID:[id number] Relation to Subscriber:Self Name:Bella Henley Subscriber ID:[id number] Payer ID:[id number] Group ID:Not on file Type:Medicare Address: [employer] [address] [place] [id number] MEDICARE SUPPLEMENT MEDICARE PART A & B [facility] SUPPLEMENT Care Teams High Raw Sugar Boiler Relationship Specialty Start Date End Date Nick Gomez PA [address] [place] [phone] PCP - General Physician Psychiatric Technician Assistant 05/14/23 Additional Source Comments The information contained in this document represents components of the legal health record. It is not the complete legal health record.[facility]
--- OUTSIDE RECORDS SUMMARY | 2025-05-16 17:35 | XMS_ITS | Encounter Summary ---
Author Organization [facility] Address [address] [place] [address] Phone Care Team Providers Care Label Sewer Name Role Phone Norm Bates Unavailable [phone] Verónica Nielson MD Unavailable [phone] Bandar Renteria MD Unavailable [phone] Luis Milner CNP Unavailable [phone] Martha Estrada MD Unavailable [phone] David Walton MD Unavailable [phone] Deny Saleh DO Primary Care Provider [phone] Bandar Renteria MD Primary Care Provider Nick Gomez Primary Care Provider + Encounter Details Date Type Department Care Team (Late st Contact Info) Description 12/14/2020 Transcribe Orders [facility] [address] [place] [address] Deny Saleh DO [address] [facility] [address] [place], [place] [id number] Social History Tobacco Use Types Packs/Day Years [...] on filedocumented in this encounter Care Teams Label Sewer Relationship Specialty Start Date End Date Nunudelfina Deny SawyerDO [address] [place] [address] [email or web address] PCP - General Internal Medicine 08/09/17 01/09/21 Bandar Renteria MD [address] [place] [address] [address] PCP - General Internal Medicine 01/10/21 05/13/23 Nick Gomez PA [address] [place] [address] PCP - General Physician Selling Specialist 05/14/23 Norm Bates PA [address] [place] [address] Historical LMR Provider 06/22/17 2 Verónica Nielson MD [address] [address] [email or web address] Historical LMR Provider 06/22/17 Bandar Renteria MD [address] [place] [address] [address] Historical LMR Provider 06/22/17 2 Luis Milner CNP [address] [place] [address] Historical LMR Provider 06/22/17 09/11/21 Martha Estrada MD 4 [facility], [facility] [place] [address] [email or web address] Historical LMR Provider 06/22/17 David Walton MD [address] [place] [address] Historical LMR Provider 06/22/17 2 documented as of this encounter Additional Source Comments The information contained in this document represents components of the legal health record. It is not the complete legal health record.[facility]
--- OUTSIDE RECORDS SUMMARY | 2025-05-16 17:35 | XMS_ITS | Encounter Summary ---
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) drug therapy Social History Tobacco Use [...] FOLATE Routine 02/19/2025 5:09 AM EDT Other group home (current) drug therapy documented in this encounter Results * (ABNORMAL) Folate (02/19/2025 5:09 AM EDT) Folate >20.0(H) 2.8 - 17.0 ng/ml LAB CHEMISTRY METHOD 02/19/2025 8:26 AM EDT [facility] Blood Venous blood specimen / Unknown Venipuncture / Unknown 02/19/2025 5:09 AM EDT 02/19/2025 6:45 AM EDT Harris Gross MD LAB BLOOD ORDERABLES Final Resul t [facility] ([facility]) [facility] [address] [place] [address], documented in this encounter Visit Diagnoses Diagnosis Other group home (current) drug therapy documented in this encounter Care Teams Change Management Specialist Relationship Specialty Start Date End Date Harris Gross MD [address] [place] [address] [address] [place] [address] PCP - General Geriatric Medicine 02/13/25 documented as of this encounter
--- OUTSIDE RECORDS SUMMARY | 2025-05-16 17:35 | XMS_ITS | Clinical Summary ---
Author Organization [address] [facility] Address [address] [place] [address] Phone Care Team Providers Care Bellstand Attendant Name Role Phone Harris Gross MD Primary Care Provider [phone] Encounters Date Type Department Care Team Description 03/06/2025 Lab Requisition [facility] Lab [address] [place] [phone] Harris Gross MD Altered mental status, unspecified; Dysuria 02/19/2025 Lab Requisition [facility] [address] [place] [phone] Harris Gross MD Other fpc (current) drug therapy 02/13/2025 Lab Requisition [facility] [address] [place] [phone] Harris Gross MD Vitamin D deficiency, unspecified; [...] reflex microscopic (03/06/2025 12:00 AM EDT) Specific [place] Urine 1.008 1.003 - 1.030 LAB URINALYSIS - AUTOMATED METHOD 03/06/2025 10:[address] [facility] pH, Urine 7.5 5.0 - 8.0 pH LAB URINALYSIS - AUTOMATED METHOD 03/06/2025 10:[address] [facility] Leukocytes, Urine Negative Negative LAB URINALYSIS - AUTOMATED METHOD 03/06/2025 10:[address] [facility] Nitrite, Urine Negative Negative LAB URINALYSIS - AUTOMATED METHOD 03/06/2025 10:[address] [facility] Protein, Urine Negative <=Trace mg/dL LAB URINALYSIS - AUTOMATED METHOD 03/06/2025 10:[address] [facility] Glucose, Urine Negative Negative mg/dL LAB URINALYSIS - AUTOMATED METHOD 03/06/2025 10:[address] [facility] Ketones, Urine Negative Negative mg/dL LAB URINALYSIS - AUTOMATED METHOD 03/06/2025 10:[address] [facility] Urobilinogen, Urine 0.2 0.2 - 1.0 mg/dL LAB URINALYSIS - AUTOMATED METHOD 03/06/2025 10:34 AM EDT [facility] Bilirubin, Urine Negative Negative LAB URINALYSIS - AUTOMATED METHOD 03/06/2025 10:34 AM EDT [facility] Blood, Urine Negative Negative LAB URINALYSIS - AUTOMATED METHOD 03/06/2025 10:34 AM EDT [facility] Urine Urine specimen obtained by clean catch procedure / Unknown 03/06/2025 03/06/2025 8:51 AM EDT us Harris Gross MD LAB URINE ORDERABLES Final Resul t Performing Organization Address City/[facility]/ZIP Co de Phone Number [facility] [address] [place] [address], [place] [phone] * Culture urine (03/06/2025 12:00 AM EDT) Pathologist [facility] Culture, Urine <10,000 CFU/mL gram positive cocci, insignificant count, no further workup 03/07/2025 1:00 PM EDT [facility] Urine Urine specimen obtained by clean catch procedure / Unknown 03/06/2025 03/06/2025 8:51 AM EDT us Harris Gross MD LAB MICROBIOLOGY - GENERAL ORDER ROEL Final Result Performing Organization Address [facility]/State/ZIP Co de Phone Number [facility] [address] [place] [address], [place] [phone] * (ABNORMAL) Folate (02/19/2025 5:09 AM EDT) Folate >20.0(H) 2.8 - 17.0 ng/ml LAB CHEMISTRY METHOD 02/19/2025 8:26 AM EDT [facility] Blood Venous blood specimen / Unknown Venipuncture / Unknown 02/19/2025 5:09 AM EDT 02/19/2025 6:45 AM EDT us Hraris Gross MD LAB BLOOD ORDERABLES Final Resul t Performing Organization Address [facility]/ZIP Co de Phone Number [facility] [address] [place] [address], [place] [phone] * Vitamin D 25 hydroxy (02/13/2025 6:49 AM EDT) [facility] Vit D, 25-Hydroxy 57.4 30.0 - 80.0 ng/mL LAB CHEMISTRY METHOD 02/13/2025 11:18 AM EDT [facility] Blood Venous blood specimen / Unknown Venipuncture / Unknown 02/13/2025 6:49 AM EDT 02/13/2025 8:56 AM EDT us Harris Gross MD LAB BLOOD ORDERABLES Final Resul t Performing Organization Address [facility] de Phone Number [facility] [address] [place] [address], [place] [phone] * (ABNORMAL) Complete blood count (02/13/2025 6:49 AM EDT) [facility] WBC 3.3(L) 4.8 - 10.8 K/mcL LAB HEMETOLOGY METHOD 02/13/2025 9:07 AM EDT [facility] RBC 2.90(L) 3.80 - 4.80 M/mcL LAB HEMETOLOGY METHOD 02/13/2025 9:07 AM EDT [facility] Hemoglobin 8.4(L) 11.5 - 16.0 g/dL LAB HEMETOLOGY METHOD 02/13/2025 9:07 AM EDT [facility] Hematocrit 27.2(L) 35.0 - 47.0 % LAB HEMETOLOGY METHOD 02/13/2025 9:07 AM EDT [facility] MCV 94.8 79.0 - 98.0 FL LAB HEMETOLOGY METHOD 02/13/2025 9:07 AM EDT [facility] MCH 29.3 27.0 - 32.0 pcg LAB HEMETOLOGY METHOD 02/13/2025 9:07 AM EDT [facility] MCHC 30.9(L) 32.0 - 37.0 g/dL LAB HEMETOLOGY METHOD 02/13/2025 9:07 AM EDT [facility] RDW 14.9 11.0 - 15.0 % LAB HEMETOLOGY METHOD 02/13/2025 9:07 AM EDT [facility] Platelets 132 130 - 400 K/mcL LAB HEMETOLOGY METHOD 02/13/2025 9:07 AM EDT [facility] MPV 11.8(H) 7.0 - 11.0 FL LAB HEMETOLOGY METHOD 02/13/2025 9:07 AM EDT [facility] NRBC 0.0 <1.0 % LAB HEMETOLOGY METHOD 02/13/2025 9:[address] [facility] NRBC Absolute 0.00 <0.10 K/mcL LAB HEMETOLOGY METHOD 02/13/2025 9:[address] [facility] Blood Venous blood specimen / Unknown Venipuncture / Unknown 02/13/2025 6:49 AM EDT 02/13/2025 8:56 AM EDT us Harris Gross MD LAB BLOOD ORDERABLES Final Resul t [facility] [address] [place] [address], * Thyroid stimulating hormone (02/13/2025 6:49 AM EDT) TSH 1.12 0.40 - 4.00 mcIU/mL LAB CHEMISTRY METHOD 02/13/2025 11:19 AM EDT [facility] Blood Venous blood specimen / Unknown Venipuncture / Unknown 02/13/2025 6:49 AM EDT 02/13/2025 8:56 AM EDT us Harris Gross MD LAB BLOOD ORDERABLES Final Resul t [facility] [address] [place] [address], [place] [phone] * Vitamin B12 (02/13/2025 6:49 AM EDT) Pathologist [facility] Vitamin B-12 391 250 - 900 pcg/mL LAB CHEMISTRY METHOD 02/13/2025 10:12 AM EDT [facility] Blood Venous blood specimen / Unknown Venipuncture / Unknown 02/13/2025 6:49 AM EDT 02/13/2025 8:56 AM EDT us Harris Gross MD LAB BLOOD ORDERABLES Final Resul t Performing Organization Address City/[facility]/ZIP Co de Phone Number [facility] [address] [place] [address], [place] [phone] * (ABNORMAL) Comprehensive metabolic panel (02/13/2025 6:49 AM EDT) Pathologist [facility] Sodium 140 133 - 145 mmol/L LAB CHEMISTRY METHOD 02/13/2025 10:12 AM EDT [facility] Potassium 3.8 3.5 - 5.5 mmol/L LAB CHEMISTRY METHOD 02/13/2025 10:12 AM EDT [facility] Chloride 105 96 - 110 mmol/L LAB CHEMISTRY METHOD 02/13/2025 10:12 AM EDT [facility] CO2 29 21 - 32 mmol/L LAB CHEMISTRY METHOD 02/13/2025 10:12 AM EDT [facility] Anion Gap 6 3 - 11 LAB CHEMISTRY METHOD 02/13/2025 10:[address] [facility] Glucose 91 70 - 100 mg/dL LAB CHEMISTRY METHOD 02/13/2025 10:[address] [facility] BUN 24 5 - 25 mg/dL LAB CHEMISTRY METHOD 02/13/2025 10:[address] [facility] Creatinine 0.88 0.50 - 1.10 mg/dL LAB CHEMISTRY METHOD 02/13/2025 10:[address] [facility] eGFR 65 >=60 mL/min/1. 73m2 LAB CHEMISTRY METHOD 02/13/2025 10:[address] [facility] Comment:Calculation based on the Chronic Kidney Disease Epidemiology Collaboration (CKD-EPI) equation refit without adjustment for race. BUN/Creatinine Ratio 27.3 LAB CHEMISTRY METHOD 02/13/2025 10:[address] [facility] Calcium 9.2 8.5 - 10.5 mg/dL LAB CHEMISTRY METHOD 02/13/2025 10:[address] [facility] AST (SGOT) 14 10 - 42 unit/L LAB CHEMISTRY METHOD 02/13/2025 10:[address] [facility] ALT (SGPT) 14 10 - 60 unit/L LAB CHEMISTRY METHOD 02/13/2025 10:[address] [facility] Alkaline Phosphatase 88 42 - 121 unit/L LAB CHEMISTRY METHOD 02/13/2025 10:[address] [facility] Total Protein 5.9(L) 6.0 - 8.0 g/dL LAB CHEMISTRY METHOD 02/13/2025 10:[address] [facility] Albumin 3.1(L) 3.2 - 5.0 g/dL LAB CHEMISTRY METHOD 02/13/2025 10:[address] [facility] Total Bilirubin 0.4 0.0 - 1.4 mg/dL LAB CHEMISTRY METHOD 02/13/2025 10:[address] [facility] Blood Venous blood specimen / Unknown Venipuncture / Unknown 02/13/2025 6:49 AM EDT 02/13/2025 8:56 AM EDT Harris Gross MD LAB BLOOD ORDERABLES Final Resul t [facility] ([facility]) [facility] [address] [place] [address], from Last 3 Months Insurance MEDICARE [facility] Advance Directives Documents on File Type Date Recorded Patient Rda Expl anation Health Care Decision (hx) 09/07/2023 HE ALTH CARE PROXY Health Care Decision (hx) 03/03/2023 HE ALTH CARE PROXY Care Teams Bellstand Attendant Relationship Specialty Start Date End Date Harris Gross MD [address] [facility] [address] [place] [address] PCP - General Geriatric Medicine 02/13/25
--- OUTSIDE RECORDS SUMMARY | 2025-05-16 17:35 | XMS_ITS | Encounter Summary ---
Author Organization [facility] Address [address] [place] [address] Care Team Providers Care Teletypist Name Role Phone Harris Gross MD Primary Care Provider [phone] Encounter Details Date Type Department Care Team (Late st Contact Info) Description 02/13/2025 Lab Requisition [facility] - Main Lab [address] [facility] [place] [address] Harris Gross MD [address] [place], [place] [phone] Vitamin D deficiency, unspecified; Gastrointestinal hemorrhage, unspecified; [...] Vitamin B12 (02/13/2025 6:49 AM EDT) [facility] Vitamin B-12 391 250 - 900 pcg/mL LAB CHEMISTRY METHOD 02/13/2025 10:12 AM EDT [facility] Blood Venous blood specimen / Unknown Venipuncture / Unknown 02/13/2025 6:49 AM EDT 02/13/2025 8:56 AM EDT us Harris Gross MD LAB BLOOD ORDERABLES Final Resul t Performing Organization Address [facility]/ZIP Co de Phone Number [facility] [address] [place] [address], [place] [phone] * Vitamin D 25 hydroxy (02/13/2025 6:49 AM EDT) [facility] Vit D, 25-Hydroxy 57.4 30.0 - 80.0 ng/mL LAB CHEMISTRY METHOD 02/13/2025 11:18 AM EDT [facility] Blood Venous blood specimen / Unknown Venipuncture / Unknown 02/13/2025 6:49 AM EDT 02/13/2025 8:56 AM EDT us Harris Gross MD LAB BLOOD ORDERABLES Final Resul t [facility] [address] [place] [address], [place] [phone] * Thyroid stimulating hormone (02/13/2025 6:49 AM EDT) [facility] TSH 1.12 0.40 - 4.00 mcIU/mL LAB CHEMISTRY METHOD 02/13/2025 11:19 AM EDT [facility] Blood Venous blood specimen / Unknown Venipuncture / Unknown 02/13/2025 6:49 AM EDT 02/13/2025 8:56 AM EDT Harris Gross MD LAB BLOOD ORDERABLES Final Resul t [facility] [address] [place] [address], [place] [phone] * (ABNORMAL) Comprehensive metabolic panel (02/13/2025 6:49 AM EDT) Sodium 140 133 - 145 mmol/L LAB CHEMISTRY METHOD 02/13/2025 10:12 AM [facility] Potassium 3.8 3.5 - 5.5 mmol/L LAB CHEMISTRY METHOD 02/13/2025 10:12 AM [facility] Chloride 105 96 - 110 mmol/L LAB CHEMISTRY METHOD 02/13/2025 10:12 AM [facility] CO2 29 21 - 32 mmol/L LAB CHEMISTRY METHOD 02/13/2025 10:12 AM [facility] Anion Gap 6 3 - 11 LAB CHEMISTRY METHOD 02/13/2025 10:12 AM [facility] Glucose 91 70 - 100 mg/dL LAB CHEMISTRY METHOD 02/13/2025 10:12 AM [facility] BUN 24 5 - 25 mg/dL LAB CHEMISTRY METHOD 02/13/2025 10:12 AM [facility] Creatinine 0.88 0.50 - 1.10 mg/dL LAB CHEMISTRY METHOD 02/13/2025 10:12 AM [facility] eGFR 65 >=60 mL/min/1. 73m2 LAB CHEMISTRY METHOD 02/13/2025 10:12 AM [facility] Comment:Calculation based on the Chronic Kidney Disease Epidemiology Collaboration (CKD-EPI) equation refit without adjustment for race. BUN/Creatinine Ratio 27.3 LAB CHEMISTRY METHOD 02/13/2025 10:12 AM [facility] Calcium 9.2 8.5 - 10.5 mg/dL LAB CHEMISTRY METHOD 02/13/2025 10:12 AM [facility] AST (SGOT) 14 10 - 42 unit/L LAB CHEMISTRY METHOD 02/13/2025 10:12 AM [facility] ALT (SGPT) 14 10 - 60 unit/L LAB CHEMISTRY METHOD 02/13/2025 10:12 AM [facility] Alkaline Phosphatase 88 42 - 121 unit/L LAB CHEMISTRY METHOD 02/13/2025 10:12 AM [facility] Total Protein 5.9(L) 6.0 - 8.0 g/dL LAB CHEMISTRY METHOD 02/13/2025 10:12 AM [facility] Albumin 3.1(L) 3.2 - 5.0 g/dL LAB CHEMISTRY METHOD 02/13/2025 10:12 AM [facility] Total Bilirubin 0.4 0.0 - 1.4 mg/dL LAB CHEMISTRY METHOD 02/13/2025 10:12 AM [facility] Blood Venous blood specimen / Unknown Venipuncture / Unknown 02/13/2025 6:49 AM EDT 02/13/2025 8:56 AM EDT us Harris Gross MD LAB BLOOD ORDERABLES Final Resul t [facility] [address] [place] [address], * (ABNORMAL) Complete blood count (02/13/2025 6:49 AM EDT) WBC 3.3(L) 4.8 - 10.8 K/mcL LAB HEMETOLOGY METHOD 02/13/2025 9:07 AM [facility] RBC 2.90(L) 3.80 - 4.80 M/mcL LAB HEMETOLOGY METHOD 02/13/2025 9:07 AM [facility] Hemoglobin 8.4(L) 11.5 - 16.0 g/dL LAB HEMETOLOGY METHOD 02/13/2025 9:07 AM [facility] Hematocrit 27.2(L) 35.0 - 47.0 % LAB HEMETOLOGY METHOD 02/13/2025 9:07 AM [facility] MCV 94.8 79.0 - 98.0 FL LAB HEMETOLOGY METHOD 02/13/2025 9:07 AM [facility] MCH 29.3 27.0 - 32.0 pcg LAB HEMETOLOGY METHOD 02/13/2025 9:07 AM [facility] MCHC 30.9(L) 32.0 - 37.0 g/dL LAB HEMETOLOGY METHOD 02/13/2025 9:07 AM [facility] RDW 14.9 11.0 - 15.0 % LAB HEMETOLOGY METHOD 02/13/2025 9:07 AM [facility] Platelets 132 130 - 400 K/mcL LAB HEMETOLOGY METHOD 02/13/2025 9:07 AM [facility] MPV 11.8(H) 7.0 - 11.0 FL LAB HEMETOLOGY METHOD 02/13/2025 9:07 AM [facility] NRBC 0.0 <1.0 % LAB HEMETOLOGY METHOD 02/13/2025 9:07 AM [facility] NRBC Absolute 0.00 <0.10 K/mcL LAB HEMETOLOGY METHOD 02/13/2025 9:07 AM [facility] Blood Venous blood specimen / Unknown Venipuncture / Unknown 02/13/2025 6:49 AM EDT 02/13/2025 8:56 AM EDT Harris Gross MD LAB BLOOD ORDERABLES Final Resul t [facility] ([facility]) [facility] [address] [place] [address], documented in this encounter Visit Diagnoses Diagnosis Vitamin D deficiency, unspecified Gastrointestinal hemorrhage, unspecified Aphagia Anorexia documented in this encounter Care Teams Teletypist Relationship Specialty Start Date End Date Harris Gross MD [address] [place] [address] [address] [place] [address] PCP - General Geriatric Medicine 02/13/25 documented as of this encounter
== END 2025-05-16 15:05 | disposition home or self-care (01) ==
LOC: HO.NEURO 15:04
PROVIDERS: PCP Internal Medicine
DX: Z13.89 Encounter for screening for other disorder (principal)

== ENCOUNTER 2025-05-16 15:29 | Emergency (ER) | payer MEDICARE, OTHER, SELFPAY ==
--- NOTE | ~2025-05-16 | CT_ITS ---
EXAMINATION: CT HEAD WITHOUT IV CONTRAST CLINICAL INFORMATION: dizziness / lightheadedness / fall COMPARISON: CT of the head on April 23, 2024 and March 27, 2024 TECHNIQUE: Contiguous axial imaging was performed from the skull base to vertex without intravenous administration of contrast. This CT examination was performed using dose optimization techniques as appropriate, variously including the following: *Automated exposure control *Adjustment of mA and/or kV according to patient size (this includes techniques or standardized protocols for targeted exams where dose is matched to indication/reason for exam; i.e. extremities or head) *Use of iterative reconstruction technique FINDINGS: Brain parenchyma: No shift of midline structures. No parenchymal hemorrhage, mass effect or evidence of acute territorial infarct. Extensive confluent hypodensity in the white matter of bilateral cerebral hemispheres is similar to 2023. Ventricles/extra-axial spaces: Similar findings of ventriculomegaly that appears chronically out of proportion to sulcal prominence, which suggests normal pressure hydrocephalus. Extracranial structures: Calcifications involving bilateral internal carotid and vertebral arteries. Paranasal sinuses and mastoid air cells are clear. Prior bilateral ocular lens extraction. CT/CT head/brain wo IV con IMPRESSION: 1. No acute intracranial pathology. 2. 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 Electronically signed by: Manjeet Oliveira MD 05/16/2025 04:49 PM EDT
--- NOTE | ~2025-05-16 | XR_ITS ---
EXAMINATION: XR CHEST 2 VIEWS CLINICAL INFORMATION: weakness COMPARISON: Chest radiograph on February 09, 2025. Chest CT on February 28, 2025 TECHNIQUE: 2 views of the chest were obtained. FINDINGS: Lungs: Hyperinflated lungs. No focal lung consolidation. No evidence of pulmonary edema. Pleura: No pleural effusion or pneumothorax. Heart/Mediastinum: Cardiomediastinal silhouette is within normal limits. Prosthetic aortic valve. Bones/Soft Tissues: No acute findings. XR/XR chest 2V IMPRESSION: No acute abnormality. Electronically signed by: Manjeet Oliveira MD 05/16/2025 04:18 PM EDT
[2025-05-16 15:34] VITALS: BP 105/58; PULSE 86; RESP 18; TEMP 36.4; O2SAT 95; BMI 26.1
--- NOTE | 2025-05-16 15:35 | ED_ITS ---
HPI - General Adult General Chief complaint: Dizziness Stated complaint: Dizziness sent from cardio Time Seen by Provider: 05/16/25 17:59 Source: patient, family (son Hi) and RN notes reviewed Limitations: no limitations History of Present Illness HPI narrative: 84-year-old female, who has a history off anxiety, HTN, aortic stenosis status post TAVR, COPD, prior CVA, arthritis, chronic constipation, and GERD presents for evaluation of lightheadedness, weakness and low blood pressure. Patient is accompanied by her son who reports that she started Wellbutrin approximately 5-6 weeks ago. The dosage was just increased proximally one-week ago from 75 mg to 150 mg daily. During this past week, the patient has been having episodes of lightheadedness and weakness. She apparently has had some falls at home as well. As of today, her prescriber instructed her to return to her dose of 75 mg. Her last dose was 150 mg today. While the patient was preparing to have a nerve conduction study performed, she was noted to be hypotensive and was therefore sent to the emergency department for further evaluation. Patient currently has no physical complaints. Denies any chest pain or shortness of breath. She denies any syncope. She does report having episodes of while standing, feeling generally weak. Today she had to slide herself down because of the weakness. She did not strike her head. Patient lives at home with her son. She uses a cane to ambulate in the home. Related Data Home Medications ?Medication ?Instructions ?Recorded ?Confirmed alprazolam 0.25 mg tablet 0.125 mg PO BID PRN Anxiety 03/28/24 05/16/25 fluticasone propionate 115 2 puff inhalation BID 01/1405/16/25 mcg-salmeterol 21 mcg/actuation HFA inhaler (Advair HFA) acetaminophen 325 mg tablet 325 mg PO Q4H PRN Pain 05/2905/16/25 citalopram 20 mg tablet (Celexa) 20 mg PO BID 05/14/25 05/16/25 fluticasone propionate 50 1 spray intranasal DAILY PRN 05/16/25 05/16/25 mcg/actuation nasal Allergy Symptoms spray,suspension mirabegron 50 mg tablet,extended 50 mg PO BEDTIME 05/0505/16/25 release 24 hr (Myrbetriq) polyethylene glycol 3350 17 17 g PO DAILY PRN Constipa tion 05/16/25 05/16/25 gram/dose oral powder (Miralax) Previous Rx's ?Medication ?Instructions ?Recorded albuterol sulfate 90 mcg/actuation 2 puff inhalation Q 4-6H PRN 09/06/24 aerosol inhaler shortness of breath or wheez ing #1 ea cholecalciferol (vitamin D3) 50 50 mcg PO DAILY #90 ta bs 12/09/24 mcg (2,000 unit) tablet (Vitamin D3) clopidogrel 75 mg tablet 75 mg PO DAILY #90 tabs 03/04 03/28 pantoprazole 40 mg tablet,delayed 40 mg PO DAILY@0630 #90 tabs 04/13/25 release (Protonix) Allergies Allergy/AdvReac Type Severity Reaction Status Date / Time buspirone Allergy Intermediate Rash Verified 05/16/25 15:37 Sulfa (Sulfonamide Allergy Intermediate RASH Verified 05/16/25 15:37 Antibiotics) cefuroxime Allergy Unknown Unknown Verified 05/16/25 15:37 garlic (GARLIC) Allergy Unknown PER H&P Verified 05/16/25 15:37 metronidazole (From FLAGYL) Allergy Unknown OCULAR Verified 05/16/25 15:37 MIGRAINES penicillamine Allergy Unknown Unknown Verified 05/16/25 15:37 ciprofloxacin AdvReac Intermediate neuropathic Verified 05/16/25 15:37 pain lisinopril AdvReac Intermediate Cough Verified 05/16/25 15:37 loratadine (From Claritin) AdvReac Mild Fatigued Verified 05/16/25 15:37 nitrofurantoin AdvReac Mild GI side Verified 05/16/25 15:37 effects cefuroxime Allergy Intermediate wheezy Uncoded 04/25/25 09:35 cough/itch flagyl Allergy Unknown Unknown Uncoded 04/25/25 09:35 From KEFLEX Allergy Unknown RASH Uncoded 04/25/25 09:35 Metoprolol Tartrate Allergy Unknown Unknown Uncoded 04/25/25 09:35 Sulfacet-R Allergy Unknown Unknown Uncoded 04/25/25 09:35 Review of Systems 2 Review of Systems: Yes all other systems are reviewed and are negative Constitutional: Constitutional: Denies headache(s) Eyes: Eyes: Denies change in vision ENT: Denies headache(s) Cardiovascular: Cardiovascular: Denies chest pain, Denies edema, Denies irregular heart rhythm, Reports lightheadedness and Denies Loss of Consciousness Respiratory: Respiratory: Denies chest congestion and Denies cough Neurologic: Denies headache(s) [facility] Past Medical History Medical History Dizziness Nonspecific low blood pressure reading Annual wellness visit Acute diverticulitis LLQ abdominal pain Contusion of right lower leg Otitis media Cough Bronchitis Pelvic pain Chronic cough Elevated IgE level Status post fall Hip pain Post-menopausal URI (upper respiratory infection) Sensation of pressure in bladder area Chest pain Elevated blood sugar Oral candidiasis GERD (gastroesophageal reflux disease) Pulmonary nodule HTN (hypertension) Heart palpitations Constipation Breast cancer screening Breast pain, left Elevated vitamin B12 level Neck muscle spasm Strain of neck muscle Low back pain Pubic ramus fracture Sore throat Skin tear of upper arm without complication Head injury, acute, without loss of consciousness Fall Medication noncompliance due to cognitive impairment RLQ abdominal pain Sinusitis Flu syndrome Precordial chest pain Atypical chest pain Cold intolerance Former smoker Abnormal lung sounds Fever Bilateral calf pain Nausea Left lower quadrant abdominal pain Dysuria Fatigue Lower extremity weakness Aortic stenosis Obstipation Dark stools Lower abdominal pain Gastroenteritis Neck pain on right side Back pain Rhinitis Elevated BP without diagnosis of hypertension Non-rheumatic aortic stenosis Diverticulitis GERD (gastroesophageal reflux disease) Cat scratch Cat bite Epigastric discomfort Diarrhea Neuropathy Arthritis GERD (gastroesophageal reflux disease) HTN (hypertension) Irritable bowel Heart murmur Surgical History S/P AVR S/P TAVR (transcatheter aortic valve replacement) Hx of esophagogastroduodenoscopy Hx of colonoscopy History of tonsillectomy History of appendectomy Family History Family History Father No problems noted. Mother No problems noted. Social History Social History Household Members: Children Housing: House Are you a primary adult day care worker to a significant other at home: No Do you presently have visiting nurse or other home services: No Alcohol intake: never Comment: Pt still ambulate on her own even though alarms are on Patient Tobacco Use Status: Former Tobacco user Tobacco use type: Cigarette Years Smoked: 55 e-Cigarette/Vaping Use: Never Used Second Hand Smoke Exposure: Yes Advance Directives Date on File: 03/28/23 service: No Current occupational status: retired Cognitive needs: No Hearing needs: No Vision needs: Yes (glasses) Physical Exam ED Vital Signs: Vital Signs - 24 hr 05/19/25 21:41 05/19/25 22:20 05/20/25 06:38 Temperature 98.1 F 98.3 F Pulse Rate 96 85 Respiratory Rate 18 16 20 Blood Pressure 116/63 131/70 Pulse Oximetry 96 94 Oxygen Delivery Method Room Air Room Air 05/20/25 07:54 05/20/25 13:07 Temperature 98.3 F Pulse Rate 93 86 Respiratory Rate 20 20 Blood Pressure 128/68 Pulse Oximetry 98 Oxygen Delivery Method Room Air BMI result Body Mass Index 26.1 Eyes Other: No nystagmus Resp Other: Lung sounds clear throughout Cardio Rate: regular rate Rhythm: regular rhythm GI Other: Abdomen is soft and nontender Extrem Other: Telegraphic Service Dispatcher is 5/5 bilaterally. Full range of motion of all joints. Patient able to stand with cane and ambulate. No symptoms. Course Course Course Narrative: Rapid medical examination performed in triage by Xuan Soliman PA-C. Patient is an 84 year old assigned female at presenting to the emergency department with multiple episodes of dizziness / lightheadedness / falls. Detailed physical exam and review of systems are deferred to the surveillance investigator. EKG, labs. imaging, and swabs ordered. Patient placed back in the waiting room pending room availability and results. Reevaluation(s) Reevaluation #1: May 16, 2025, 8:00 p.m. patient is resting comfortably at this time. She has been asymptomatic while in the emergency department. She is not orthostatic. Labs returned without any acute process. Patient has a history of anemia, H&H within baseline ranges. She has not had any evidence of bleeding which include no dark stools or hematuria. Patient is unable to provide a urinalysis at this time. However she did have one 2 days ago at urgent care. Urine culture at that time was negative for any growth. 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 Given that the patient is risk for increased falls, patient will need to be further evaluated by Physical therapy and case management for possible short-term rehab disposition. The patient and her son are in agreement with this. JS. Time: 01:50 Date: 05/17/25 Provider: ROMAINE Story Patient in physician observation for case management needs. No acute events reported overnight.? No current issues or complaints. VS stable. Patient is pending placement at facility/pending PT/CM eval. Will continue to monitor. Time: 08:37 Date: 05/17/25 Provider: ROMAINE Hogan Patient in physician observation for case management needs. No acute events reported overnight.? No current issues or complaints. VS stable. Patient is pending PT/CM eval. Will continue to monitor. Time: 08:47 Date: 05/18/25 Provider: ROMAINE Hogan Patient in physician observation for case management needs. No acute events reported overnight.? No current issues or complaints. VS stable. PT recommending STR. pending placement/ctl. Will continue to monitor. ROMAINE Hogan 05/18/25 1540: Beata from case management spoke with patient's son who states that she is not able to make her own decision and puts on a very convincing show . He is requesting a cognitive evaluation for medical decision-making capacity. will place psych consult. Time: 08:31 Date: 05/19/25 Provider: ROMAINE Abarca Patient in physician observation for case management needs. No acute events reported overnight.? Awaiting psychiatry evaluation. We will continue to monitor. Time: 08:24 Date: 05/20/25 Provider: Xuan Soliman PA-C Observation continues. Case management continues to follow. Time: 09:07 Date: 05/20/25 Provider: Xuan Soliman PA-C Observation care revealed the the patient does not meet medical necessity for hospitalization. Final disposition of discharge to [facility] discussed with the patient who verbalized understanding and agreement. Patient completed observation care at 0900, total time spent in observation care was 3 days, 13 hours, and 28 minutes. Medications Administered Discontinued Medications Generic Name Dose Route Start Last Admin Trade Name Freq PRN Reason Stop Dose Admin Acetaminophen 325 mg 05/16/25 22:02 05/19/25 23:45 Acetaminophen 325 Mg Tablet PO 325 mg Q4H PRN Administration Pain, Mild (Pain Scale 1-3) Alprazolam 0.125 mg 05/16/25 22:02 05/20/25 12:46 Alprazolam 0.25 Mg Tablet PO 0.125 mg BID PRN Administration Anxiety Bupropion HCl 75 mg 05/17/25 08:30 05/20/25 09:50 Bupropion Hcl 75 Mg Tablet PO 75 mg DAILY@0830 URSULA Administration Clopidogrel Bisulfate 75 mg 05/17/25 09:00 05/20/25 09:50 Clopidogrel Bisulfate 75 Mg Tablet PO 75 mg DAILY URSULA Administration Escitalopram Oxalate 10 mg 05/16/25 22:30 05/20/25 09:50 Escitalopram Oxalate 10 Mg Tablet PO 10 mg BID URSULA Administration Fluticasone/Vilanterol 1 puff 05/17/25 08:00 05/20/25 07:51 Fluticasone/Vilanterol /25 Blst.W.Dev INHALE 1 puff RDAILY URSULA Administration Mirabegron 50 mg 05/16/25 22:15 05/19/25 21:17 Mirabegron 50 Mg Tab.Er.24h PO 50 mg BEDTIME URSULA Administration Ondansetron HCl 4 mg 05/17/25 01:17 05/17/25 01:23 Ondansetron Odt 4 Mg Tab.Rapdis TRANSLINGU 05/17/25 01:18 4 mg ONCE ONE Administration Pantoprazole Sodium 40 mg 05/17/25 06:30 05/20/25 06:41 Pantoprazole Sodium 20 Mg Tablet. PO 40 mg DAILY@0630 URSULA Administration Vitamin D 50 mcg 05/17/25 09:00 05/20/25 09:50 Cholecalciferol (Vitamin D3) 25 Mcg Tablet PO 50 mcg DAILY URSULA Administration Medical Decision Making Medical Decision Making [facility] Narrative: 84-year-old female with generalized weakness, lightheadedness. Patient confirms that her weakness is generalized and she is not having a dizziness. She does although I have episodes of lightheadedness. Check labs, orthostatic vital signs and imaging. Concern for possible medication reaction l Differential Diagnosis Differential Diagnoses: The differential diagnosis associated with the presentation includes Medication reaction Dehydration UTI Metabolic abnormality Admission/Observation Consideration of admission/observation: Escalation of care including admission/observation considered Lab Data [facility] Lab Attestation statement: I reviewed the patient's lab results. 05/19/25 10:10 05/19/25 10:10 Labs: Lab Results 05/16/25 05/16/25 05/19/25 Range/Units 16:33 19:44 10:10 WBC 3.5 L 3.6 L (4.8-10.8) X10*3/uL RBC 2.67 L 2.64 L (4.20-5.50) X10*6/uL Hgb 7.7 L 7.6 L (12.0-16.0) g/dl Hct 24.0 L 24.1 L (37.0-47.0) % MCV 89.9 91.3 (80.0-98.0) fL MCH 28.8 28.8 (27.0-33.0) pg MCHC 32.1 31.5 (31.0-35.0) g/dl RDW 15.3 15.0 (11.0-16.0) % Plt Count 142 L 153 L (160-400) X10*3/uL MPV 10.4 10.8 (9.4-12.3) fL Immature Gran % (Auto) 0.6 H 0.3 (0.0-0.4) % Neut % (Auto) 74.6 H 66.3 (45-73) % Lymph % (Auto) 13.8 L 16.3 L (20-40) % [place] % (Auto) 8.4 10.4 (2-11) % Eos % (Auto) 2.0 5.6 H (0-4) % Baso % (Auto) 0.6 1.1 (0-2) % Lymph # (Auto) 0.5 L 0.6 L (1.2-4.9) X10*3/uL [place] # (Auto) 0.3 0.4 (0.1-1.2) X10*3/uL Eos # (Auto) 0.1 0.2 (0.0-0.4) X10*3/uL Baso # (Auto) 0.0 0.0 (0.0-0.2) X10*3/uL Abs Immat Gran (auto) 0.02 0.01 (0.00-0.03) X10*3/uL Absolute Neuts (auto) 2.6 2.4 (2.0-8.3) x10*3/uL Absolute Nucleated RBC 0.000 0.000 (0.0-0.012) X10*3/uL Nucleated RBC % (auto) 0.0 0.0 (0.0-0.2) /100WBC PT 11.7 (10.9-12.4) SEC INR 1.0 (0.9-1.1) Sodium 138 140 (135-145) mmol/L Potassium 4.6 4.3 (3.3-5.1) mmol/L Chloride 103 104 (96-108) mmol/L Carbon Dioxide 28 29 (22-29) mmol/L Anion Gap 12 11 L (12-20) BUN 26 H 27 H (9-16) mg/dL Creatinine 1.34 1.07 (0.5-1.4) mg/dL Estim Creat Clear Calc 32.0 40.1 Estimated GFR 38 49 Random Glucose 73 90 (60-115) mg/dL Calcium 9.3 9.3 (8.4-10.2) mg/dL Magnesium 2.2 (1.6-2.6) mg/dL Total Bilirubin 0.4 0.3 (0.0-1.0) mg/dL AST 22 21 (5-31) U/L ALT 12 11 (0-31) U/L Alkaline Phosphatase 90 86 (39-117) U/L Troponin I High Sens 4.9 (<3.5-17.0) ng/L Total Protein 7.1 6.7 (6.5-8.0) g/dL Albumin 4.4 4.1 (3.5-5.0) g/dL Urine Color Yellow Urine Appearance Clear Urine pH 6.0 (5.0-9.0) Ur Specific [place] 1.010 (1.005-1.025) Urine Protein Negative (Neg-Trace) mg/dL Urine Glucose (UA) Negative (Negative) mg/dL Urine Ketones Negative (Negative) mg/dL Urine Blood Negative (Negative) Urine Nitrite Negative (Negative) Ur Leukocyte Esterase Negative (Negative) Influenza Type A (PORTILLO) Negative (Negative) Influenza Type B (PORTILLO) Negative (Negative) Influenza A & B Note See Note Radiology Impression Discussion of test interpretation with radiology: I have reviewed the radiologist's reading. Radiologist Impression: [id number] [place] [address] CT Scan Report Signed Patient: Bella Henley MR#: [id number] : 1940 Acct:[id number] Age/Sex: 84 / F ADM Date: 05/16/25 Loc: HO.ED Attending Dr: Ordering Physician: Xuan Soliman Date of Service: 05/16/25 Procedure(s): CT head/brain wo IV con Accession Number(s): [id number] cc: Xuan Soliman; Huma Garcia MD~ Report Number: [id number]: Total DLP = 1308.00 mGy-cm Reason for Exam: dizziness / lightheadedness / fall EXAMINATION: CT HEAD WITHOUT IV CONTRAST CLINICAL INFORMATION: dizziness / lightheadedness / fall COMPARISON: CT of the head on April 23, 2024 and March 27, 2024 TECHNIQUE: Contiguous axial imaging was performed from the skull base to vertex without intravenous administration of contrast. This CT examination was performed using dose optimization techniques as appropriate, variously including the following: *Automated exposure control *Adjustment of mA and/or kV according to patient size (this includes techniques or standardized protocols for targeted exams where dose is matched to indication/reason for exam; i.e. extremities or head) *Use of iterative reconstruction technique FINDINGS: Brain parenchyma: No shift of midline structures. No parenchymal hemorrhage, mass effect or evidence of acute territorial infarct. Extensive confluent hypodensity in the white matter of bilateral cerebral hemispheres is similar to 2023. Ventricles/extra-axial spaces: Similar findings of ventriculomegaly that appears chronically out of proportion to sulcal prominence, which suggests normal pressure hydrocephalus. Extracranial structures: Calcifications involving bilateral internal carotid and vertebral arteries. Paranasal sinuses and mastoid air cells are clear. Prior bilateral ocular lens extraction. CT/CT head/brain wo IV con IMPRESSION: 1. No acute intracranial pathology. 2. 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 Electronically signed by: Manjeet Oliveira MD 05/16/2025 04:49 PM EDT Dictated By: Manjeet Oliveira MD Signed By: <Electronically signed by Manjeet Oliveira MD in OV> 05/16/25 1649 DD/ 1610 TD/TT: 05/16/25 1624 Unit Technician: [address] [address] XRay Report Signed Patient: Bella Henley MR#: [id number] : 1940 Acct:[id number] Age/Sex: 84 / F ADM Date: 05/16/25 Loc: HO.ED Attending Dr: Ordering Physician: Xuan Soliman Date of Service: 05/16/25 Procedure(s): XR chest 2V Accession Number(s): [id number] cc: Xuan Soliman; Huma Garcia MD~ Reason for Exam: weakness EXAMINATION: XR CHEST 2 VIEWS CLINICAL INFORMATION: weakness COMPARISON: Chest radiograph on February 09, 2025. Chest CT on February 28, 2025 TECHNIQUE: 2 views of the chest were obtained. FINDINGS: Lungs: Hyperinflated lungs. No focal lung consolidation. No evidence of pulmonary edema. Pleura: No pleural effusion or pneumothorax. Heart/Mediastinum: Cardiomediastinal silhouette is within normal limits. Prosthetic aortic valve. Bones/Soft Tissues: No acute findings. XR/XR chest 2V IMPRESSION: No acute abnormality. Electronically signed by: Manjeet Oliveira MD 05/16/2025 04:18 PM EDT Dictated By: Manjeet Oliveira MD Signed By: <Electronically signed by Manjeet Oliveira MD in OV> 05/16/25 1618 DD/ 1609 TD/TT: 05/16/25 1605 Unit Technician: External Record Review External record reviewed: Inpatient record Prescription Management I considered prescription management with: Pain Medication Chronic Conditions Patient?s care impacted by: Hypertension Discharge Plan Discharge Clinical Impression: Weakness Patient Disposition: Xfer SNF Transfer Details: [place] [facility] Instructions: Weakness (ED) Additional Instructions: IF you are prescribed home medications and/or you are taking over the counter medications at home - it is very important you continue to do so as prescribed / directed unless told otherwise. Follow up with your primary care provider. Return to the emergency department immediately if your symptoms worsen or if you develop any numbness, tingling, dizziness, shortness of breath, difficulty breathing, chest pain, blurry vision, loss of vision, nausea, vomiting, abdominal pain, fever, chills, back pain, or any other complaints. Please see the information below about our Patient Portal. If you are not yet enrolled in the [facility] Patient Portal, you will receive an enrollment email invitation following your visit to any [facility] care setting. You may also self-enroll in the Patient Portal by visiting our website: [email or web address] The following information is required to access the Patient Portal: - Your [facility] Medical Record Number - Your personal home email address (must match what is in your electronic medical record, Registration staff can assist with this) - Name - Date of Capabilities of the Patient Portal: - Message some providers - View upcoming appointments - Access your health summary, medical history, and visit history - View current conditions and allergies - View procedure and lab results - View your medications, including guidelines, side effects, and precautions - Complete pre-appointment questionnaires requested by your provider - Ready summary reports of your office visits and procedures To access the Patient Portal Mobile As[employer], follow these directions: - Search Inspire in the Asya Store or [employer] Store - Download the Asya - Search for [facility] - Enter your login/password Prescriptions: No Action albuterol sulfate 90 mcg/actuation HFA aerosol inhaler 2 puff inhalation Q4-6H PRN (Reason: shortness of breath or wheezing) Qty: 1 2RF cholecalciferol (vitamin D3) [Vitamin D3] 50 mcg (2,000 unit) tablet 50 mcg PO DAILY Qty: 90 3RF clopidogrel 75 mg tablet 75 mg PO DAILY Qty: 90 0RF pantoprazole [Protonix] 40 mg tablet,delayed release (DR/EC) 40 mg PO DAILY@0630 Qty: 90 0RF polyethylene glycol 3350 [Miralax] 17 gram/dose powder 17 g PO DAILY PRN (Reason: Constipation) fluticasone propionate 50 mcg/actuation spray,suspension 1 spray intranasal DAILY PRN (Reason: Allergy Symptoms) mirabegron [Myrbetriq] 50 mg tablet extended release 24 hr 50 mg PO BEDTIME alprazolam 0.25 mg Tablet 0.125 mg PO BID PRN (Reason: Anxiety) acetaminophen 325 mg Tablet 325 mg PO Q4H PRN (Reason: Pain) fluticasone propion-salmeterol [Advair HFA] 115-21 mcg/actuation HFA aerosol inhaler 2 puff inhalation BID citalopram [Celexa] 20 mg tablet 20 mg PO BID Interventions: ED Discharge Assessment Last Done: 05/20/25 13:07 Discharge Date/Time: 05/20/25 13:12 Print Language: Azeri
--- NOTE | 2025-05-16 15:36 | ECG_ITS ---
Test Reason : WEAKNESS Blood Pressure : */* mmHG Vent. Rate : 83 BPM Atrial Rate : 83 BPM P-R Int : 224 ms QRS Dur : 86 ms QT Int : 384 ms P-R-T Axes : 46 -13 39 degrees QTcB Int : 451 ms Sinus rhythm with 1st degree A-V block Cannot rule out Anterior infarct (cited on or before 16-Apr-2025) Abnormal ECG When compared with ECG of 16-Apr-2025 12:59, DC interval has increased Referred By: Xuan Soliman Electronically Signed By: MICHEL CHARLES MD
[2025-05-16 16:40] LABS: MANUAL DIFF FLAG NO
[2025-05-16 16:42] LABS: Hematocrit 24.0 % (37.0-47.0); Hemoglobin 7.7 g/dl (12.0-16.0); Imm Gran Abs Auto 0.02 X10*3/uL (0.00-0.03); Imm Gran Pct Auto 0.6 % (0.0-0.4); Lymphocytes Absolute Auto 0.5 X10*3/uL (1.2-4.9); Mean Corpuscular HGB Conc 32.1 g/dl (31.0-35.0); Mean Corpuscular Hemoglobin 28.8 pg (27.0-33.0); Mean Corpuscular Volume 89.9 fL (80.0-98.0); NRBC Abs Auto 0.000 X10*3/uL (0.0-0.012); NRBC Pct Auto 0.0 /100WBC (0.0-0.2); Platelet Count 142 X10*3/uL (160-400); Red Blood Count 2.67 X10*6/uL (4.20-5.50); White Blood Count 3.5 X10*3/uL (4.8-10.8)
[2025-05-16 16:57] LABS: Alanine Aminotransferase 12 U/L (0-31); Albumin Level 4.4 g/dL (3.5-5.0); Alkaline Phosphatase 90 U/L (39-117); Anion Gap 12 (12-20); Aspartate Amino Transferase 22 U/L (5-31); Blood Urea Nitrogen 26 mg/dL (9-16); Calcium 9.3 mg/dL (8.4-10.2); Carbon Dioxide 28 mmol/L (22-29); Chloride 103 mmol/L (96-108); Creatinine Clr Calc Pharmacy 32.0; Estimated Glomerular Filt Rate 38; Magnesium 2.2 mg/dL (1.6-2.6); Potassium 4.6 mmol/L (3.3-5.1); Sodium 138 mmol/L (135-145); Total Protein 7.1 g/dL (6.5-8.0)
[2025-05-16 17:00] LABS: INTERNATIONAL NORM RATIO 1.0 (0.9-1.1); Prothrombin Time 11.7 SEC (10.9-12.4)
[2025-05-16 17:03] LABS: IDNOW Serial# 58CA691E; Influenza B2 Negative (Negative)
[2025-05-16 17:04] LABS: Troponin-I High Sensitivity 4.9 ng/L (<3.5-17.0)
[2025-05-16 18:25] VITALS: BP 140/68; PULSE 83; RESP 83; TEMP 36.9; O2SAT 94
[2025-05-16 19:19] VITALS: BP 154/70; PULSE 85
[2025-05-16 19:20] VITALS: BP 154/77; PULSE 85
[2025-05-16 19:22] VITALS: BP 149/79; PULSE 92
--- NOTE | 2025-05-16 20:52 | PHA.MEDREC ---
Addendum entered by Xavier James PharmD 05/16/25 21:12: reviewed Original Note: Pharmacy Consult ? Medication Reconciliation Pharmacy has completed the medication reconciliation. Spoke to patient son over the phone to confirm med list. Son New all of patients medications. Son states patient stopped taking Coenzym Q10 100 mg. Son confirmed Patient Bupropion dose is now 75 mg daily from Bupropion 150 mg, Alprazolam 0.125 mg ( 1/2 of 0.25 mg) BID. Son states patient takes folic acid ,however didn't know the dose so left of med rec. Patient had all her morning medication today.
[2025-05-16 22:20] LABS: Appearance Urine Clear; Glucose Urine UA Negative (Negative); PH 6.0 (5.0-9.0); Specific Gravity - Urine 1.010 (1.005-1.025)
[2025-05-16] MEDS: Mirabegron 50 MG TAB.ER.24H PO (22:38)
[2025-05-17 01:25] VITALS: BP 151/82; PULSE 85; RESP 14; TEMP 36.8; O2SAT 95
[2025-05-17 06:15] VITALS: BP 127/57; PULSE 86; RESP 18; TEMP 36.7; O2SAT 95
[2025-05-17 08:07] VITALS: PULSE 100; O2SAT 94
--- NOTE | 2025-05-17 08:10 | PC.NURSE ---
patient met with physical therapy who recommend short term rehab per patient. states she just does not feel right and feels very uneasy and shaky.
--- NOTE | 2025-05-17 09:48 | MHC.CM.ED ---
Received consult for assessment of d/c needs: met with pt who states she resides with her son, uses a cane and was just d[facility]. Pt presents after a fall: no injury: PT eval supports [facility] - pt has been to [facility] in the past and is receptive to referrals. Awaiting offers at this time. HCP/MOLST on file.
--- NOTE | 2025-05-17 11:00 | PC.NURSE ---
patient ambulates with cane and one assist to the bathroom
[2025-05-17 14:59] VITALS: BP 124/71; PULSE 89; RESP 17; O2SAT 93
[2025-05-17 19:39] VITALS: BP 105/61; PULSE 90; RESP 18; TEMP 36.8; O2SAT 96
[2025-05-17] MEDS: Mirabegron 50 MG TAB.ER.24H PO (20:32)
[2025-05-18 01:09] VITALS: BP 135/73; PULSE 94; RESP 18; TEMP 36.8; O2SAT 93
--- NOTE | 2025-05-18 01:30 | PC.NURSE ---
this RN spoke w/ Hi Henley pt's son and HCP gave an giving update
--- NOTE | 2025-05-18 02:15 | PC.NURSE ---
at time pt noted to be walking outside of room asking where her room was, this RN escorted the pt back to her room and placed bed alarm on for safety d/t confusion, pt educated to use call mcmahan if needing to ambulate out of bed
[2025-05-18 06:30] VITALS: BP 145/76; PULSE 89; RESP 16; TEMP 36.5; O2SAT 96
[2025-05-18 08:22] VITALS: BP 114/66; PULSE 82; RESP 14; TEMP 36.6; O2SAT 92
[2025-05-18] MEDS: Fluticasone/Vilanterol 100/25 BLST.W.DEV 1 PUFF INHALE (08:28)
[2025-05-18 08:30] VITALS: PULSE 88; RESP 18; O2SAT 92
--- NOTE | 2025-05-18 12:31 | MHC.CM.ED ---
Addendum entered by Beata Solano 05/18/25 15:04: Received call from pt's son Hi regarding d/c planning: Hi states pt is very unsafe at home and falls regularly at home. He states pt is very convincing at hiding her cognitive decline and has a long history of volatile behavior Hi states he has epilepsy and the stress of trying to assist his mother is causing him health issues. He states the [facility] discharged her from services because she wasn't compliant with therapy and was argumentative. Discussed in great detail the criteria for admission and criteria for acute vs SNF admission. Pt has not had a 3 midnight qualifying stay and would need to privately pay for a SNF as she was declined from acute rehab. Discussed privately pay home care but son stated that would not be reasonable. He also stated that he wanted to avoid private pay because she would run out of funds quickly. Hi notes pt exhibits confusion and mood changes at home going from pleasant to aggressive and then depressed. He has concerns with her ability to make sound choices. He is requesting a capacity eval for decision making. Message given to ED provider. This ED CM has spoken with pt on several occasions: she was pleasant, recalled my name each time and appeared to answer questions about her medical history - including medication and provider names reliably - no episodes of behaviors noted by ED staff. ED CM to follow. Original Note: Met with pt to review acute/SNF referrals: pt does not meet acute rehab criteria and would need to privately pay for STR as she does not have a MCR qualifying stay. Pt feels she is improving in balance and would like to be re-evaluated by PT in the am. She attributes her gait impairment to a recent adjustment of SSRI's by her mechanical spreader operator. If PT feels pt is safe to return to home, pt would accept [facility] for RN and PT visits. Pt states her son, with whom she lives, has health issues and isn't able to assist pt with all her ambulation needs. Pt referred to [facility] pending PT revisit.
[2025-05-18 14:11] VITALS: BP 102/62; PULSE 90; RESP 16; O2SAT 94
--- NOTE | 2025-05-18 15:46 | PC.NURSE ---
assumed care of patient at 0700, patient is awake and alert, oriented, patient uses cane to ambulate to the bathroom. patient medicated per MAR. plan of care on going at this time
[2025-05-18] MEDS: Mirabegron 50 MG TAB.ER.24H PO (21:05)
--- NOTE | 2025-05-18 21:15 | PC.NURSE ---
pt medicated per nov, tolerated whole well with water
[2025-05-18 21:55] VITALS: BP 142/69; PULSE 97; TEMP 36.8; O2SAT 94
[2025-05-19] VITALS (12 sets, daily range): BP systolic 90–135; BP diastolic 59–74; PULSE 60–99; RESP 12–88; TEMP 36.6–37.1; O2SAT 92–100
--- NOTE | 2025-05-19 05:00 | PC.NURSE ---
pt resting in stretcher, respirations even and unlabored, vss.
[2025-05-19] MEDS: Fluticasone/Vilanterol 100/25 BLST.W.DEV 1 PUFF INHALE (07:37)
--- NOTE | 2025-05-19 10:12 | MHC.CM.ED ---
Patient remains in ER. MOCA=. Psych consult for capacity pending. Ana slag mixer aware. Patient requesting additional PT eval. PT made aware. Continue to monitor for d/c needs.
[2025-05-19 10:18] LABS: MANUAL DIFF FLAG NO
[2025-05-19 10:19] LABS: Hematocrit 24.1 % (37.0-47.0); Hemoglobin 7.6 g/dl (12.0-16.0); Imm Gran Abs Auto 0.01 X10*3/uL (0.00-0.03); Imm Gran Pct Auto 0.3 % (0.0-0.4); Lymphocytes Absolute Auto 0.6 X10*3/uL (1.2-4.9); Mean Corpuscular HGB Conc 31.5 g/dl (31.0-35.0); Mean Corpuscular Hemoglobin 28.8 pg (27.0-33.0); Mean Corpuscular Volume 91.3 fL (80.0-98.0); NRBC Abs Auto 0.000 X10*3/uL (0.0-0.012); NRBC Pct Auto 0.0 /100WBC (0.0-0.2); Platelet Count 153 X10*3/uL (160-400); Red Blood Count 2.64 X10*6/uL (4.20-5.50); White Blood Count 3.6 X10*3/uL (4.8-10.8)
[2025-05-19 10:42] LABS: Alanine Aminotransferase 11 U/L (0-31); Albumin Level 4.1 g/dL (3.5-5.0); Alkaline Phosphatase 86 U/L (39-117); Anion Gap 11 (12-20); Aspartate Amino Transferase 21 U/L (5-31); Blood Urea Nitrogen 27 mg/dL (9-16); Calcium 9.3 mg/dL (8.4-10.2); Carbon Dioxide 29 mmol/L (22-29); Chloride 104 mmol/L (96-108); Creatinine Clr Calc Pharmacy 40.1; Estimated Glomerular Filt Rate 49; Potassium 4.3 mmol/L (3.3-5.1); Sodium 140 mmol/L (135-145); Total Protein 6.7 g/dL (6.5-8.0)
--- NOTE | 2025-05-19 10:53 | PC.NURSE ---
Pt is anxious this morning. She would like her morning dose of alprazolam, which was given at midnight last night. She is nervous about taking her bupropion because she has dry mouth, trouble concentrating, tired and weird feeling .
--- NOTE | 2025-05-19 12:33 | P.CNPS_ITS ---
History of Present Illness Date of Service: 05/19/2025 Chief Complaint: Dizziness sent from cardio Reason for Consult: capacity Discussed with referring provider: Yes Sources of Information: patient interviewed, chart reviewed and crisis/core team assessment reviewed HPI Narrative: Mrs. Henley is an 84 year-old woman who was brought by son due to dizziness and weakness. Pertinent labs completed in the ED include CBC with normocytic anemia with low but stable H&H (7.7/24). CMP without electrolyte abnormalities, BUN 26, Cr 1.34, creatinine clearance 32, low Ptls 142. UA without signs of UTI. Psychiatry asked to complete capacity assessment. Pt seen in the ED. She reports she came here few days ago due to dizziness and weakness. She reports that she has a difficult relationship with her son at home and at times feels that he is controlling and verbally abusive. She denies any physical abuse from son. She is oriented to place, month, year and situation. She does report some difficulty remembering some information and when asked if she is aware that PT had recommended STR, she reports she is not aware. Unclear if this information has been given to her or not to assess whether she is struggling with retaining new information. She reports hx of anxiety and sees Cathy Huber which reports has been very helpful. No SI/HI. Past Psychiatric History: OP: Cathy Huber NP Medical Evaluation Reviewed: Yes [facility] Medical History Dizziness Nonspecific low blood pressure reading Annual wellness visit Acute diverticulitis LLQ abdominal pain Contusion of right lower leg Otitis media Cough Bronchitis Pelvic pain Chronic cough Elevated IgE level Status post fall Hip pain Post-menopausal URI (upper respiratory infection) Sensation of pressure in bladder area Chest pain Elevated blood sugar Oral candidiasis GERD (gastroesophageal reflux disease) Pulmonary nodule HTN (hypertension) Heart palpitations Constipation Breast cancer screening Breast pain, left Elevated vitamin B12 level Neck muscle spasm Strain of neck muscle Low back pain Pubic ramus fracture Sore throat Skin tear of upper arm without complication Head injury, acute, without loss of consciousness Fall Medication noncompliance due to cognitive impairment RLQ abdominal pain Sinusitis Flu syndrome Precordial chest pain Atypical chest pain Cold intolerance Former smoker Abnormal lung sounds Fever Bilateral calf pain Nausea Left lower quadrant abdominal pain Dysuria Fatigue Lower extremity weakness Aortic stenosis Obstipation Dark stools Lower abdominal pain Gastroenteritis Neck pain on right side Back pain Rhinitis Elevated BP without diagnosis of hypertension Non-rheumatic aortic stenosis Diverticulitis GERD (gastroesophageal reflux disease) Cat scratch Cat bite Epigastric discomfort Diarrhea Neuropathy Arthritis GERD (gastroesophageal reflux disease) HTN (hypertension) Irritable bowel Heart murmur Surgical History S/P AVR S/P TAVR (transcatheter aortic valve replacement) Hx of esophagogastroduodenoscopy Hx of colonoscopy History of tonsillectomy History of appendectomy Diagnostics Vital Signs (24Hr): Vital Signs - 24 hr 05/18/25 14:11 05/18/25 21:55 05/19/25 04:56 Temperature 98.3 F 97.9 F Pulse Rate 90 97 88 Respiratory Rate 16 16 Blood Pressure 102/62 142/69 H 132/62 Pulse Oximetry 94 94 94 Oxygen Delivery Method Room Air Room Air Room Air 05/19/25 05:01 05/19/25 06:05 05/19/25 07:39 Temperature 97.8 F Pulse Rate 77 83 74 Respiratory Rate 18 20 20 Blood Pressure 128/72 Pulse Oximetry 92 Oxygen Delivery Method Room Air 05/19/25 08:19 05/19/25 10:01 05/19/25 10:57 Temperature 98.8 F 98.7 F 98.3 F Pulse Rate 94 60 95 Respiratory Rate 15 14 88 H Blood Pressure 135/64 129/74 134/72 Pulse Oximetry 95 100 95 Oxygen Delivery Method Room Air Room Air Room Air BMI result Body Mass Index 26.1 Labs 05/19/25 10:10 05/19/25 10:10 Labs: Laboratory Results - last 48 hr 05/19/25 10:10 WBC 3.6 L RBC 2.64 L Hgb 7.6 L Hct 24.1 L MCV 91.3 MCH 28.8 MCHC 31.5 RDW 15.0 Plt Count 153 L MPV 10.8 Immature Gran % (Auto) 0.3 Neut % (Auto) 66.3 Lymph % (Auto) 16.3 L [place] % (Auto) 10.4 Eos % (Auto) 5.6 H Baso % (Auto) 1.1 Lymph # (Auto) 0.6 L [place] # (Auto) 0.4 Eos # (Auto) 0.2 Baso # (Auto) 0.0 Abs Immat Gran (auto) 0.01 Absolute Neuts (auto) 2.4 Absolute Nucleated RBC 0.000 Nucleated RBC % (auto) 0.0 Sodium 140 Potassium 4.3 Chloride 104 Carbon Dioxide 29 Anion Gap 11 L BUN 27 H Creatinine 1.07 Estim Creat Clear Calc 40.1 Estimated GFR 49 Random Glucose 90 Calcium 9.3 Total Bilirubin 0.3 AST 21 ALT 11 Alkaline Phosphatase 86 Total Protein 6.7 Albumin 4.1 Imaging Radiology Impressions: ITS Impressions Chest X-Ray 05/16/25 16:09 IMPRESSION: No acute abnormality. Electronically signed by: Manjeet Oliveira MD 05/16/2025 04:18 PM EDT RP Head CT 05/16/25 16:10 IMPRESSION: 1. No acute intracranial pathology. 2. 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 Electronically signed by: Manjeet Oliveira MD 05/16/2025 04:49 PM EDT RP Mental Status Exam Mental Status Exam Narrative: Appearance: wearing hospital gown, fair hygiene, in NAD Behavior: cooperative Psychomotor: no agitation or retardation noted Speech: mostly clear, normal rate/rhythm/volume, spontaneous TP: mostly linear TC: wanting help finding a place to live Mood: I can be better Affect: smiles at times, calm SI: denies HI: denies VH/AH: none Delusions: no overt delusional content noted or reported Insight/judgment: fair x 2. Memory/cog: alert, oriented to place, month, year and situation. MOCA completed on 05/19/2025 scored 21/30 with impairments in visuospatial, attention, recall and abstraction. Intact orientation and executive function. Medications Medications Current Medications Acetaminophen (Acetaminophen 325 Mg Tablet) 325 mg PO Q4H PRN PRN Reason: Pain, Mild (Pain Scale 1-3) Albuterol Sulfate (Albuterol Sulfate 90 Mcg 8 Gm Inhaler) 2 puff INHALE Q4H PRN PRN Reason: shortness of breath or wheezing Alprazolam (Alprazolam 0.25 Mg Tablet) 0.125 mg PO BID PRN PRN Reason: Anxiety Last Admin: 05/18/25 23:03 Dose: 0.125 mg Bupropion HCl (Bupropion Hcl 75 Mg Tablet) 75 mg PO DAILY@0830 [facility] Last Admin: 05/19/25 10:56 Dose: 75 mg Clopidogrel Bisulfate (Clopidogrel Bisulfate 75 Mg Tablet) 75 mg PO DAILY [facility] Last Admin: 05/19/25 08:48 Dose: 75 mg Escitalopram Oxalate (Escitalopram Oxalate 10 Mg Tablet) 10 mg PO BID [facility] Last Admin: 05/19/25 08:48 Dose: 10 mg Fluticasone Propionate (Fluticasone Propionate Nasal 16 Gm Landers) 1 spray NOSTRIL-B DAILY PRN PRN Reason: Allergy Symptoms Fluticasone/Vilanterol (Fluticasone/Vilanterol 100/25 Blst.W.Dev) 1 puff INHALE RDAILY [facility] Last Admin: 05/19/25 07:37 Dose: 1 puff Mirabegron (Mirabegron 50 Mg Tab.Er.24h) 50 mg PO BEDTIME [facility] Last Admin: 05/18/25 21:05 Dose: 50 mg Pantoprazole Sodium (Pantoprazole Sodium 20 Mg Tablet.Dr) 40 mg PO DAILY@0630 [facility] Last Admin: 05/19/25 06:06 Dose: 40 mg Polyethylene Glycol (Polyethylene Glycol 3350 17 Gm Powd.Pack) 17 gm PO DAILY PRN PRN Reason: Constipation Vitamin D (Cholecalciferol (Vitamin D3) 25 Mcg Tablet) 50 mcg PO DAILY [facility] Last Admin: 05/19/25 08:47 Dose: 50 mcg Allergies Allergies Allergy/AdvReac Type Severity Reaction Status Date / Time buspirone Allergy Intermediate Rash Verified 05/16/25 15:37 Sulfa (Sulfonamide Allergy Intermediate RASH Verified 05/16/25 15:37 Antibiotics) cefuroxime Allergy Unknown Unknown Verified 05/16/25 15:37 garlic (GARLIC) Allergy Unknown PER H&P Verified 05/16/25 15:37 metronidazole (From FLAGYL) Allergy Unknown OCULAR Verified 05/16/25 15:37 MIGRAINES penicillamine Allergy Unknown Unknown Verified 05/16/25 15:37 ciprofloxacin AdvReac Intermediate neuropathic Verified 05/16/25 15:37 pain lisinopril AdvReac Intermediate Cough Verified 05/16/25 15:37 loratadine (From Claritin) AdvReac Mild Fatigued Verified 05/16/25 15:37 nitrofurantoin AdvReac Mild GI side Verified 05/16/25 15:37 effects cefuroxime Allergy Intermediate wheezy Uncoded 04/25/25 09:35 cough/itch flagyl Allergy Unknown Unknown Uncoded 04/25/25 09:35 From KEFLEX Allergy Unknown RASH Uncoded 04/25/25 09:35 Metoprolol Tartrate Allergy Unknown Unknown Uncoded 04/25/25 09:35 Sulfacet-R Allergy Unknown Unknown Uncoded 04/25/25 09:35 Assessment & Plan Assessment & Plan (1) Encounter for assessment of healthcare decision-making capacity: Status: Acute Code(s): Z02.79 - Encounter for issue of other medical certificate Plan Mrs. Henley is an 84 year-old woman who was brought by son due to feeling dizziness and weak. She was not found to have orthostatic VS. She has head CT which has shown disproportionate enlargement of ventricles suggesting NPH. Pt not seen walking. She denies incontinence. She presents as oriented to place, month, year and situation. Her son had reported impulsive behaviors and poor choices but unclear if these are a result of personality as cognitively pt does appear grossly intact. She does seem to have impairments in recall and retaining more detail information which could benefit from medical information being given to both her and her son. She is able to show understanding of medical condition, show appreciation of risks versus benefit and communicate an answer. She appears to have capacity to make medical decisions. Keep in mind that complexity of medical decisions may vary in different context and if needed can be reassessed. Total time managing care of this patient today ____ minutes.
--- NOTE | 2025-05-19 13:02 | MHC.CM.ED ---
Patient remains in ER. Per Shreyas Perez NP, has capacity. Spoke with patient's son, Hi, Above information provided. Physical therapy eval completed. Short term rehab is recommended. Patient has no QHS. [employer] will cover 80% of STR, even when Medicare doesn't. Patient will be required to pay 20%. Hi verbalizes understanding. Patient told Shreyas Perez NP, that she liked [facility]. Hi states patient has been to [facility] and she did not care for it. Referral will be broadcasted within 15 miles. Bed offers will be discussed with patient and Hi. Continue to monitor for d/c needs.
--- NOTE | 2025-05-19 15:02 | MHC.CM.ED ---
Patient remains in ER. [facility] and [facility] are able to offer a bed. Spke with Hi. Hi would prefer if patient accepts bed at [facility]. Hi is aware it would be patient's decision. Met with patient to discuss d/c planning. Patient accepts bed at [facility]. Patient aware she will most likely be in the ER overnight again. [facility] is requesting to take a cover. auto cleaner has been asked to transfer patient to overflow when a bed is available. Continue to monitor for d/c needs.
[2025-05-19] MEDS: Mirabegron 50 MG TAB.ER.24H PO (21:17)
--- NOTE | 2025-05-19 21:29 | PC.NURSE ---
standby assist to bathroom with walker
--- NOTE | 2025-05-20 02:49 | PC.NURSE ---
Patient walked to bathroom with one assist
--- NOTE | 2025-05-20 04:50 | PC.NURSE ---
pt ambulated to the bathroom via a walker
[2025-05-20 06:38] VITALS: BP 131/70; PULSE 85; RESP 20; TEMP 36.8; O2SAT 94
[2025-05-20] MEDS: Fluticasone/Vilanterol 100/25 BLST.W.DEV 1 PUFF INHALE (07:51)
[2025-05-20 07:54] VITALS: PULSE 93; RESP 20; O2SAT 93
--- NOTE | 2025-05-20 12:56 | PC.NURSE ---
Late Charting d/t patient care: Assumed care of pt at 0700. Pt resting in bed quietly, a/ox3, respirations even and unlabored, no increased wob/sob noted, appears in no distress. Denies cp/sob/n/v/d. Pt endorsing anxiety- medicated with PRN Xanax per NOV. Pt up oob with walker, standby assist. Steady gait while ambulating with walker. Cleaned/washed up in bathroom, pt linens/bed linens changed. Pt updated on plan of care to d/c to [place] [facility] @12pm. Pt endorsing increased anxiety and requesting additional dose of PRN Xanax. ROMAINE Govea made aware- per ROMAINE, ok to give additional PRN dose of medication. Call mcmahan within reach, all needs met at this time.
[2025-05-20 13:07] VITALS: BP 128/68; PULSE 86; RESP 20; TEMP 36.8; O2SAT 98
== END 2025-05-20 13:12 | disposition skilled nursing facility (03) ==
PROVIDERS: Physician Assistant Medical; Social Worker; Emergency Provider Student in an Organized Health Care Education/Training Program; PCP Internal Medicine
DX: R42 Dizziness and giddiness (principal); R53.1 Weakness; J44.9 Chronic obstructive pulmonary disease, unspecified; R26.81 Unsteadiness on feet; I44.0 Atrioventricular block, first degree; R94.31 Abnormal electrocardiogram [ECG] [EKG]; Z86.73 Personal history of transient ischemic attack (TIA), and cerebral infarction without residual deficits; Z79.899 Other long term (current) drug therapy
CPT/HCPCS: 36415; 70450; 71046; 80053; 81003; 83735; 84484; 85025; 85610; 87502; 93005; 97163; 97167; 99285

== ENCOUNTER → 2025-05-16 15:36 | Outpatient (BNV) | payer MEDICARE, OTHER, SELFPAY | PROVIDERS: Emergency Provider Student in an Organized Health Care Education/Training Program; PCP Internal Medicine; Visit Provider Internal Medicine Cardiovascular Disease | DX: I44.0 Atrioventricular block, first degree (principal) | CPT/HCPCS: 93010 ==

== ENCOUNTER → 2025-05-16 15:36 | Outpatient (BNV) | payer MEDICARE, OTHER, SELFPAY | PROVIDERS: PCP Internal Medicine; Visit Provider Radiology Body Imaging | DX: R42 Dizziness and giddiness (principal); R53.1 Weakness; W19.XXXA Unspecified fall, initial encounter | CPT/HCPCS: 70450; 71046 ==

== ENCOUNTER → 2025-05-16 17:47 | Outpatient (BNV) | payer MEDICARE, OTHER, SELFPAY | PROVIDERS: Emergency Provider Student in an Organized Health Care Education/Training Program; PCP Internal Medicine; Visit Provider Social Worker | DX: F41.9 Anxiety disorder, unspecified (principal); Z13.30 Encounter for screening examination for mental health and behavioral disorders, unspecified | CPT/HCPCS: 99284 ==

== ENCOUNTER 2025-06-16 22:04 | Observation (INO) | payer MEDICARE, OTHER, SELFPAY ==
--- NOTE | 2025-06-16 | ECG_ITS ---
Test Reason : SYNCOPE Blood Pressure : */* mmHG Vent. Rate : 83 BPM Atrial Rate : 83 BPM P-R Int : 228 ms QRS Dur : 90 ms QT Int : 390 ms P-R-T Axes : 54 -5 32 degrees QTcB Int : 458 ms Sinus rhythm with 1st degree A-V block Possible Anterior infarct (cited on or before 16-Apr-2025) Abnormal ECG When compared with ECG of 16-May-2025 16:26, No significant change was found Referred By: Denice Blum Electronically Signed By: Guillaume Callahan
--- NOTE | ~2025-06-16 | CT_ITS ---
CLINICAL HISTORY: head injury on plavix CT head without contrast COMPARISON: CT/DC/SR - CT HEAD/BRAIN WO IV CON - 05/16/25 16:10 EDT FINDINGS: Global cerebral volume loss and chronic microvascular ischemic changes. No acute intracranial hemorrhage, extra-axial fluid collection, mass effect, or midline shift. Ventricular system and basilar cisterns are patent. Curiel-white matter differentiation is maintained. No gross orbital abnormality. No suspicious or acute bone lesion. Mastoid air cells and paranasal sinuses are predominantly clear. IMPRESSION: 1. No acute intracranial abnormality. 2. Global cerebral volume loss and chronic microvascular ischemic changes. This document has been electronically signed by: Dwight Villalta MD on 06/17/2025 01:50:34
--- NOTE | ~2025-06-16 | CT_ITS ---
CLINICAL HISTORY: r hip pain CT abdomen and pelvis without contrast Comparison: CT/SR - CT ABDOMEN PELVIS W IV CON - 02/10/25 00:43 EDT Findings: No acute fracture. Remote healed left inferior and superior pubic ramus fractures. Soft tissues of the pelvis are normal. Lung bases clear. No significant abnormality of the gallbladder, bile ducts, liver, spleen, pancreas, or adrenal glands. Nonobstructing left renal calculi. Otherwise normal kidneys, ureters, and urinary bladder. Infrarenal abdominal aortic aneurysm measuring 3.4 cm, unchanged from prior study. Heavy aortic and iliofemoral atherosclerotic changes. No significant abnormality of the stomach or bowel. IMPRESSION: 1. No acute findings. No acute right hip fracture or other acute abnormality of the right hip. 2. Unchanged infrarenal abdominal aortic aneurysm. This document has been electronically signed by: Dwight Villalta MD on 06/17/2025 01:50:42
--- NOTE | ~2025-06-16 | US_ITS ---
EXAMINATION: BILATERAL CAROTID ULTRASOUND WITH DOPPLER HISTORY: Near syncope COMPARISON: There are no prior studies available for comparison. TECHNIQUE: Real time and Color and Spectral doppler ultrasonography of the carotid and vertebral arteries was performed in multiple planes. FINDINGS: There is a small amount of plaque in both internal carotid arteries. Incidental note is made of a 1.8 x 1.3 x 1.6 cm left thyroid nodule. VERTEBRAL FLOW DIRECTION: Antegrade bilaterally. PEAK SYSTOLIC VELOCITIES (in cm/sec): RIGHT: CCA: Prox: 60 Dist: 72 ICA: Prox: 76 Mid: 72 Dist: 80 ICA/CCA Ratio: 1.1 ECA: 78 Peak ICA end diastolic velocity (EDV): 29 LEFT: CCA: Prox: 78 Dist: 69 ICA: Prox: 84 Mid: 74 Dist: 74 ICA/CCA Ratio: 1.1 ECA: 163 Peak ICA end diastolic velocity (EDV): 29 US/US carotid duplex BI IMPRESSION: 1. Findings consistent with 0-49% stenosis of the bilateral internal carotid arteries. 2. 1.8 x 1.3 x 1.6 cm left thyroid nodule. Further evaluation with thyroid ultrasound is recommended. Electronically signed by: Anatoliy Elias MD 06/17/2025 03:23 PM EDT
--- NOTE | ~2025-06-16 | MR_ITS ---
EXAMINATION: MR BRAIN WITHOUT IV CONTRAST HISTORY: Speech difficulty TECHNIQUE: Sagittal T1, and axial T1, FLAIR, T2, gradient echo, and diffusion weighted MR images of the brain were obtained. COMPARISON: Comparison is made with the prior examination dated 01/03/2022. FINDINGS: The pituitary is normal in size. The cerebellar tonsils are normally located. There is diffuse prominence of the ventricular system and cortical sulci, consistent with atrophy. Periventricular and subcortical white matter hyperintensities are noted on the FLAIR and T2-weighted images which are nonspecific, but often seen in the setting of small vessel ischemic disease. There is no mass effect or midline shift. No intra or extra-axial fluid collections are identified. There are no foci of restricted diffusion. Normal vascular flow voids are noted in the basilar and carotid arteries. There may be trace fluid in the left maxillary sinus. MR/MR head/brain wo con IMPRESSION: No acute intracranial abnormality. Electronically signed by: Anatoliy Elias MD 06/17/2025 01:11 PM EDT
--- NOTE | ~2025-06-16 | CT_ITS ---
CLINICAL HISTORY: neck pain CT cervical spine without contrast Comparison: CT/[place]/SR - CT CERVICAL SPINE WITHOUT IV CONTRAST - 03/27/24 12:13 EDT Findings: Cervical vertebral body heights maintained. No traumatic listhesis, subluxation, or dislocation demonstrated. No acute fracture identified. Intervertebral disc spaces are congruent. No suspicious lytic or blastic osseous lesion. No acute prevertebral or paraspinous soft tissue finding. Visualized portions of the lung apices are clear. IMPRESSION: 1. No CT evidence of acute traumatic cervical spine injury. This document has been electronically signed by: Dwight Villalta MD on 06/17/2025 01:50:38
[2025-06-16 22:05] VITALS: BP 105/78; PULSE 70; O2SAT 97; BMI 31.9
[2025-06-16 22:13] VITALS: BP 139/79; PULSE 88; RESP 16; O2SAT 94
[2025-06-16 22:39] LABS: Hematocrit 29.1 % (37.0-47.0); Hemoglobin 9.1 g/dl (12.0-16.0); Mean Corpuscular HGB Conc 31.3 g/dl (31.0-35.0); Mean Corpuscular Hemoglobin 29.4 pg (27.0-33.0); Mean Corpuscular Volume 93.9 fL (80.0-98.0); NRBC Abs Auto 0.000 X10*3/uL (0.0-0.012); NRBC Pct Auto 0.0 /100WBC (0.0-0.2); PLT CLUMP 1; Red Blood Count 3.10 X10*6/uL (4.20-5.50); SCAN SMEAR FLAG 1
[2025-06-16 22:41] LABS: Imm Gran Abs Auto 0.02 X10*3/uL (0.00-0.03); Imm Gran Pct Auto 0.5 % (0.0-0.4); Lymphocytes Absolute Auto 0.7 X10*3/uL (1.2-4.9); MANUAL DIFF FLAG SCAN
--- OUTSIDE RECORDS SUMMARY | 2025-06-16 22:54 | XMS_ITS | Encounter Summary ---
Author Organization [facility] Address [address] [place] [address] Care Team Providers Care Bender Helper Name Role Phone Harris Gross MD Primary Care Provider Encounter Details Date Type Department Care Team (Late st Contact Info) Description 02/13/2025 Lab Requisition [facility] - Main Lab [address] [facility] [place] [address] Harris Gross MD [address] [place], [place] [id number] Vitamin D deficiency, unspecified; Gastrointestinal hemorrhage, unspecified; [...] * Vitamin B12 (02/13/2025 6:49 AM EDT) [facility] Vitamin B-12 391 250 - 900 pcg/mL LAB CHEMISTRY METHOD 02/13/2025 10:12 AM EDT [facility] Blood Venous blood specimen / Unknown Venipuncture / Unknown 02/13/2025 6:49 AM EDT 02/13/2025 8:56 AM EDT us Harris Gross MD LAB BLOOD ORDERABLES Final Resul t Performing Organization Address [facility]/ZIP Co de Phone Number [facility] [address] [place] [address], [place] [phone] * Vitamin D 25 hydroxy (02/13/2025 6:49 AM EDT) [facility] Vit D, 25-Hydroxy 57.4 30.0 - 80.0 ng/mL LAB CHEMISTRY METHOD 02/13/2025 11:18 AM EDT [facility] Blood Venous blood specimen / Unknown Venipuncture / Unknown 02/13/2025 6:49 AM EDT 02/13/2025 8:56 AM EDT us Harris Gross MD LAB BLOOD ORDERABLES Final Resul t [facility] [address] [place] [address], [place] [phone] * Thyroid stimulating hormone (02/13/2025 6:49 AM EDT) [facility] TSH 1.12 0.40 - 4.00 mcIU/mL LAB CHEMISTRY METHOD 02/13/2025 11:19 AM EDT [facility] Blood Venous blood specimen / Unknown Venipuncture / Unknown 02/13/2025 6:49 AM EDT 02/13/2025 8:56 AM EDT Harris Gross MD LAB BLOOD ORDERABLES Final Resul t [facility] [address] [place] [address], [place] [phone] * (ABNORMAL) Comprehensive metabolic panel (02/13/2025 6:49 AM EDT) Sodium 140 133 - 145 mmol/L LAB CHEMISTRY METHOD 02/13/2025 10:12 AM [facility] Potassium 3.8 3.5 - 5.5 mmol/L LAB CHEMISTRY METHOD 02/13/2025 10:12 AM [facility] Chloride 105 96 - 110 mmol/L LAB CHEMISTRY METHOD 02/13/2025 10:12 AM [facility] CO2 29 21 - 32 mmol/L LAB CHEMISTRY METHOD 02/13/2025 10:12 AM [facility] Anion Gap 6 3 - 11 LAB CHEMISTRY METHOD 02/13/2025 10:12 AM [facility] Glucose 91 70 - 100 mg/dL LAB CHEMISTRY METHOD 02/13/2025 10:12 AM [facility] BUN 24 5 - 25 mg/dL LAB CHEMISTRY METHOD 02/13/2025 10:12 AM [facility] Creatinine 0.88 0.50 - 1.10 mg/dL LAB CHEMISTRY METHOD 02/13/2025 10:12 AM [facility] eGFR 65 >=60 mL/min/1. 73m2 LAB CHEMISTRY METHOD 02/13/2025 10:12 AM [facility] Comment:Calculation based on the Chronic Kidney Disease Epidemiology Collaboration (CKD-EPI) equation refit without adjustment for race. BUN/Creatinine Ratio 27.3 LAB CHEMISTRY METHOD 02/13/2025 10:12 AM [facility] Calcium 9.2 8.5 - 10.5 mg/dL LAB CHEMISTRY METHOD 02/13/2025 10:12 AM [facility] AST (SGOT) 14 10 - 42 unit/L LAB CHEMISTRY METHOD 02/13/2025 10:12 AM [facility] ALT (SGPT) 14 10 - 60 unit/L LAB CHEMISTRY METHOD 02/13/2025 10:12 AM [facility] Alkaline Phosphatase 88 42 - 121 unit/L LAB CHEMISTRY METHOD 02/13/2025 10:12 AM [facility] Total Protein 5.9(L) 6.0 - 8.0 g/dL LAB CHEMISTRY METHOD 02/13/2025 10:12 AM [facility] Albumin 3.1(L) 3.2 - 5.0 g/dL LAB CHEMISTRY METHOD 02/13/2025 10:12 AM [facility] Total Bilirubin 0.4 0.0 - 1.4 mg/dL LAB CHEMISTRY METHOD 02/13/2025 10:12 AM [facility] Blood Venous blood specimen / Unknown Venipuncture / Unknown 02/13/2025 6:49 AM EDT 02/13/2025 8:56 AM EDT us Harris Gross MD LAB BLOOD ORDERABLES Final Resul t [facility] [address] [place] [address], * (ABNORMAL) Complete blood count (02/13/2025 6:49 AM EDT) WBC 3.3(L) 4.8 - 10.8 K/mcL LAB HEMETOLOGY METHOD 02/13/2025 9:07 AM [facility] RBC 2.90(L) 3.80 - 4.80 M/mcL LAB HEMETOLOGY METHOD 02/13/2025 9:07 AM [facility] Hemoglobin 8.4(L) 11.5 - 16.0 g/dL LAB HEMETOLOGY METHOD 02/13/2025 9:07 AM [facility] Hematocrit 27.2(L) 35.0 - 47.0 % LAB HEMETOLOGY METHOD 02/13/2025 9:07 AM [facility] MCV 94.8 79.0 - 98.0 FL LAB HEMETOLOGY METHOD 02/13/2025 9:07 AM [facility] MCH 29.3 27.0 - 32.0 pcg LAB HEMETOLOGY METHOD 02/13/2025 9:07 AM [facility] MCHC 30.9(L) 32.0 - 37.0 g/dL LAB HEMETOLOGY METHOD 02/13/2025 9:07 AM [facility] RDW 14.9 11.0 - 15.0 % LAB HEMETOLOGY METHOD 02/13/2025 9:07 AM [facility] Platelets 132 130 - 400 K/mcL LAB HEMETOLOGY METHOD 02/13/2025 9:07 AM [facility] MPV 11.8(H) 7.0 - 11.0 FL LAB HEMETOLOGY METHOD 02/13/2025 9:07 AM [facility] NRBC 0.0 <1.0 % LAB HEMETOLOGY METHOD 02/13/2025 9:07 AM [facility] NRBC Absolute 0.00 <0.10 K/mcL LAB HEMETOLOGY METHOD 02/13/2025 9:07 AM [facility] Blood Venous blood specimen / Unknown Venipuncture / Unknown 02/13/2025 6:49 AM EDT 02/13/2025 8:56 AM EDT Harris Gross MD LAB BLOOD ORDERABLES Final Resul t [facility] [address] [place] [address], documented in this encounter Visit Diagnoses Diagnosis Vitamin D deficiency, unspecified Gastrointestinal hemorrhage, unspecified Aphagia Anorexia documented in this encounter Care Teams Bender Helper Relationship Specialty Start Date End Date Harris Gross MD [address] [place] [address] [address] [place] [address] PCP - General Geriatric Medicine 02/13/25 documented as of this encounter
--- OUTSIDE RECORDS SUMMARY | 2025-06-16 22:54 | XMS_ITS | Encounter Summary ---
Author Organization [facility] [address] Address [address] [place] [address] Care Team Providers Care Electric Mule Driver Name Role Phone Harris Gross MD Primary Care Provider [phone] Encounter Details Date Type Department Care Team (Late st Contact Info) Description 05/22/2025 Lab Requisition [facility] - Main Lab [address] [facility] [place] [address] Harris Gross MD [address] [place], [place] [id number] Essential (primary) hypertension; Anemia, unspecified Social History Tobacco Use Types Packs/Day Years [...] Procedure Name Priority Date/Time Associated Diagnosis Comments COMPLETE BLOOD COUNT Routine 05/22/2025 5:27 AM EDT Essential (primary) hypertension Anemia, unspecified BASIC METABOLIC PANEL Routine 05/22/2025 5:27 AM EDT Essential (primary) hypertension Anemia, unspecified documented in this encounter Results * (ABNORMAL) Basic metabolic panel (05/22/2025 5:27 AM EDT) Sodium 138 133 - 145 mmol/L LAB CHEMISTRY METHOD 05/22/2025 10:[address] [facility] Potassium 3.9 3.5 - 5.5 mmol/L LAB CHEMISTRY METHOD 05/22/2025 10:28 AM [facility] Chloride 104 96 - 110 mmol/L LAB CHEMISTRY METHOD 05/22/2025 10:28 AM [facility] LAB CO2 29 21 - 32 mmol/L LAB CHEMISTRY METHOD 05/22/2025 10:28 AM [facility] LAB Anion Gap 5 3 - 11 LAB CHEMISTRY METHOD 05/22/2025 10:28 AM [facility] LAB Glucose 66(L) 70 - 100 mg/dL LAB CHEMISTRY METHOD 05/22/2025 10:28 AM [facility] BUN 23 5 - 25 mg/dL LAB CHEMISTRY METHOD 05/22/2025 10:28 AM [facility] LAB Creatinine 0.91 0.50 - 1.10 mg/dL LAB CHEMISTRY METHOD 05/22/2025 10:28 AM [facility] LAB eGFR 62 >=60 mL/min/1. 73m2 LAB CHEMISTRY METHOD 05/22/2025 10:28 AM [facility] LAB Comment:Calculation based on the Chronic Kidney Disease Epidemiology Collaboration (CKD-EPI) equation refit without adjustment for race. BUN/Creatinine Ratio 25.3 LAB CHEMISTRY METHOD 05/22/2025 10:28 AM [facility] Calcium 8.9 8.5 - 10.5 mg/dL LAB CHEMISTRY METHOD 05/22/2025 10:28 AM [facility] LAB Blood Venous blood specimen / Unknown Venipuncture / Unknown 05/22/2025 5:27 AM EDT 05/22/2025 9:40 AM EDT us Harris Gross MD LAB BLOOD ORDERABLES Final Resul t [facility] [address] [place] [address], * (ABNORMAL) Complete blood count (05/22/2025 5:27 AM EDT) [facility] Signature WBC 2.8(L) 4.8 - 10.8 K/mcL LAB HEMETOLOGY METHOD 05/22/2025 11:24 AM [facility] RBC 2.50(L) 3.80 - 4.80 M/mcL LAB HEMETOLOGY METHOD 05/22/2025 11:24 AM [facility] Hemoglobin 7.0(L) 11.5 - 16.0 g/dL LAB HEMETOLOGY METHOD 05/22/2025 11:24 AM [facility] LAB Hematocrit 23.2(L) 35.0 - 47.0 % LAB HEMETOLOGY METHOD 05/22/2025 11:24 AM [facility] LAB MCV 91.3 79.0 - 98.0 FL LAB HEMETOLOGY METHOD 05/22/2025 11:24 AM [facility] LAB MCH 27.6 27.0 - 32.0 pcg LAB HEMETOLOGY METHOD 05/22/2025 11:24 AM [facility] LAB MCHC 30.2(L) 32.0 - 37.0 g/dL LAB HEMETOLOGY METHOD 05/22/2025 11:24 AM [facility] LAB RDW 15.0 11.0 - 15.0 % LAB HEMETOLOGY METHOD 05/22/2025 11:24 AM [facility] LAB Platelets 145 130 - 400 K/mcL LAB HEMETOLOGY METHOD 05/22/2025 11:24 AM [facility] LAB MPV 11.9(H) 7.0 - 11.0 FL LAB HEMETOLOGY METHOD 05/22/2025 11:24 AM [facility] NRBC 0.0 <1.0 % LAB HEMETOLOGY METHOD 05/22/2025 11:24 AM EDT [facility] NRBC Absolute 0.00 <0.10 K/mcL LAB HEMETOLOGY METHOD 05/22/2025 11:[address] [facility] Blood Venous blood specimen / Unknown Venipuncture / Unknown 05/22/2025 5:27 AM EDT 05/22/2025 9:40 AM EDT us Harris Gross MD LAB BLOOD ORDERABLES Final Resul t [facility] [address] [place] [address], documented in this encounter Visit Diagnoses Diagnosis Essential (primary) hypertension Unspecified essential hypertension Anemia, unspecified documented in this encounter Care Teams Electric Mule Driver Relationship Specialty Start Date End Date Harris Gross MD [address] [place] [address] [address] [place] [address] PCP - General Geriatric Medicine 02/13/25 documented as of this encounter
--- OUTSIDE RECORDS SUMMARY | 2025-06-16 22:54 | XMS_ITS | Encounter Summary ---
Author Organization [facility] Address [address] [place] [address] Care Team Providers Care School Occupational Therapist Name Role Phone Harris Gross MD Primary Care Provider [phone] Encounter Details Date Type Department Care Team (Late st Contact Info) Description 05/28/2025 Lab Requisition [facility] - Main Lab [address] [facility] [place] [address] Harris Gross MD [address] [place], [place] [id number] Essential (primary) hypertension Social History Tobacco Use Types Packs/Day Years [...] Associated Diagnosis Comments COMPLETE BLOOD COUNT Routine 05/29/2025 6:50 AM EDT Essential (primary) hypertension BASIC METABOLIC PANEL Routine 05/29/2025 6:50 AM EDT Essential (primary) hypertension documented in this encounter Results * Basic metabolic panel (05/29/2025 6:50 AM EDT) Sodium 140 133 - 145 mmol/L LAB CHEMISTRY METHOD 05/29/2025 10:23 AM EDT [facility] Potassium 4.4 3.5 - 5.5 mmol/L LAB CHEMISTRY METHOD 05/29/2025 10:23 AM [facility] LAB Chloride 104 96 - 110 mmol/L LAB CHEMISTRY METHOD 05/29/2025 10:23 AM [facility] LAB CO2 31 21 - 32 mmol/L LAB CHEMISTRY METHOD 05/29/2025 10:23 AM [facility] LAB Anion Gap 5 3 - 11 LAB CHEMISTRY METHOD 05/29/2025 10:23 AM [facility] Glucose 76 70 - 100 mg/dL LAB CHEMISTRY METHOD 05/29/2025 10:23 AM [facility] BUN 21 5 - 25 mg/dL LAB CHEMISTRY METHOD 05/29/2025 10:23 AM [facility] LAB Creatinine 0.86 0.50 - 1.10 mg/dL LAB CHEMISTRY METHOD 05/29/2025 10:23 AM [facility] LAB eGFR 67 >=60 mL/min/1. 73m2 LAB CHEMISTRY METHOD 05/29/2025 10:23 AM [facility] LAB Comment:Calculation based on the Chronic Kidney Disease Epidemiology Collaboration (CKD-EPI) equation refit without adjustment for race. BUN/Creatinine Ratio 24.4 LAB CHEMISTRY METHOD 05/29/2025 10:23 AM [facility] Calcium 9.0 8.5 - 10.5 mg/dL LAB CHEMISTRY METHOD 05/29/2025 10:23 AM [facility] LAB Blood Venous blood specimen / Unknown Venipuncture / Unknown 05/29/2025 6:50 AM EDT 05/29/2025 9:14 AM EDT us Harris Gross MD LAB BLOOD ORDERABLES Final Resul t [facility] [address] [place] [address], * (ABNORMAL) Complete blood count (05/29/2025 6:50 AM EDT) Pathologist [facility] WBC 3.4(L) 4.8 - 10.8 K/mcL LAB HEMETOLOGY METHOD 05/29/2025 10:07 AM [facility] LAB RBC 2.70(L) 3.80 - 4.80 M/mcL LAB HEMETOLOGY METHOD 05/29/2025 10:07 AM [facility] Hemoglobin 7.6(L) 11.5 - 16.0 g/dL LAB HEMETOLOGY METHOD 05/29/2025 10:07 AM [facility] LAB Hematocrit 25.2(L) 35.0 - 47.0 % LAB HEMETOLOGY METHOD 05/29/2025 10:07 AM [facility] LAB MCV 93.0 79.0 - 98.0 FL LAB HEMETOLOGY METHOD 05/29/2025 10:07 AM [facility] LAB MCH 28.0 27.0 - 32.0 pcg LAB HEMETOLOGY METHOD 05/29/2025 10:07 AM [facility] LAB MCHC 30.2(L) 32.0 - 37.0 g/dL LAB HEMETOLOGY METHOD 05/29/2025 10:07 AM [facility] LAB RDW 16.5(H) 11.0 - 15.0 % LAB HEMETOLOGY METHOD 05/29/2025 10:07 AM [facility] LAB Platelets 135 130 - 400 K/[facility] LAB HEMETOLOGY METHOD 05/29/2025 10:07 AM [facility] LAB MPV 12.0(H) 7.0 - 11.0 FL LAB HEMETOLOGY METHOD 05/29/2025 10:07 AM [facility] LAB NRBC 0.0 <1.0 % LAB HEMETOLOGY METHOD 05/29/2025 10:07 AM [facility] LAB NRBC Absolute 0.00 <0.10 K/[facility] LAB HEMETOLOGY METHOD 05/29/2025 10:07 AM EDT [facility] LAB Blood Venous blood specimen / Unknown Venipuncture / Unknown 05/29/2025 6:50 AM EDT 05/29/2025 9:14 AM EDT Harris Gross MD LAB BLOOD ORDERABLES Final Resul t [facility] [address] [place] [address], documented in this encounter Visit Diagnoses Diagnosis Essential (primary) hypertension Unspecified essential hypertension documented in this encounter Care Teams School Occupational Therapist Relationship Specialty Start Date End Date Harris Gross MD [address] [place] [address] [address] [place] [address] PCP - General Geriatric Medicine 02/13/25 documented as of this encounter
--- OUTSIDE RECORDS SUMMARY | 2025-06-16 22:54 | XMS_ITS | Encounter Summary ---
Author Organization [facility] Address [address] [place] [address] Phone Care Team Providers Care Demonstrator [employer]iances Name Role Phone Norm Bates Unavailable [phone] Verónica Nielson MD Unavailable [phone] Bandar Renteria MD Unavailable [phone] Luis Milner CNP Unavailable [phone] Martha Estrada MD Unavailable [phone] David Walton MD Unavailable [phone] Deny Saleh DO Primary Care Provider [phone] Bandar Renteria MD Primary Care Provider Nick Gomez Primary Care Provider + Encounter Details Date Type Department Care Team (Late st Contact Info) Description 12/14/2020 Transcribe Orders [facility] [address] [place] [address] Deny Saleh DO [address] [facility] [address] [place], [place] [phone] Social History Tobacco Use Types Packs/Day Years [...] on filedocumented in this encounter Care Teams Demonstrator [employer] Relationship Specialty Start Date End Date Nunudelfina Deny SawyerDO [address] [place] [address] [email or web address] PCP - General Internal Medicine 08/09/17 01/09/21 Bandar Renteria MD [address] [place] [address] [address] PCP - General Internal Medicine 01/10/21 05/13/23 Nick Gomez PA [address] [place] [address] PCP - General Physician Manufacturing Plant Manager 05/14/23 Norm Bates PA [address] [place] [address] Historical LMR Provider 06/22/17 2 Verónica Nielson MD [address] [address] [email or web address] Historical LMR Provider 06/22/17 Bandar Renteria MD [address] [place] [address] [address] Historical LMR Provider 06/22/17 2 Luis Milner CNP [address] [place] [address] Historical LMR Provider 06/22/17 09/11/21 Martha Estrada MD [address] [facility], [facility] [place] [address] [email or web address] Historical LMR Provider 06/22/17 David Walton MD [address] [place] [address] Historical LMR Provider 06/22/17 2 documented as of this encounter Additional Source Comments The information contained in this document represents components of the legal health record. It is not the complete legal health record.[facility]
--- OUTSIDE RECORDS SUMMARY | 2025-06-16 22:54 | XMS_ITS | Encounter Summary ---
Author Organization [facility] Address [address] [place] [address] Care Team Providers Care Wire Rigger Name Role Phone Harris Gross MD Primary Care Provider [phone] Encounter Details Date Type Department Care Team (Late st Contact Info) Description 05/21/2025 Lab Requisition [facility] - Main Lab [address] [facility] [place] [address] Harris Gross MD [address] [place], [place] [phone] Essential (primary) hypertension; Chronic obstructive pulmonary disease, unspecified (CMS/HCC V24, CMS/HCC V28); Dizziness and giddiness Social History Tobacco Use Types Packs/Day Years [...] Associated Diagnosis Comments COMPLETE BLOOD COUNT Routine 05/21/2025 4:56 AM EDT Essential (primary) hypertension Chronic obstructive pulmonary disease, unspecified (CMS/HCC V24, CMS/HCC V28) Dizziness and giddiness COMPREHENSIVE METABOLIC PANEL Routine 05/21/2025 4:56 AM EDT Essential (primary) hypertension Chronic obstructive pulmonary disease, unspecified (CMS/HCC V24, CMS/HCC V28) Dizziness and giddiness documented in this encounter Results * (ABNORMAL) Comprehensive metabolic panel (05/21/2025 4:56 AM EDT) Sodium 138 133 - 145 mmol/L LAB CHEMISTRY METHOD 05/21/2025 11:07 AM [facility] LAB Potassium 4.2 3.5 - 5.5 mmol/L LAB CHEMISTRY METHOD 05/21/2025 11:07 AM [facility] LAB Chloride 104 96 - 110 mmol/L LAB CHEMISTRY METHOD 05/21/2025 11:07 AM [facility] LAB CO2 29 21 - 32 mmol/L LAB CHEMISTRY METHOD 05/21/2025 11:07 AM [facility] LAB Anion Gap 5 3 - 11 LAB CHEMISTRY METHOD 05/21/2025 11:07 AM [facility] LAB Glucose 74 70 - 100 mg/dL LAB CHEMISTRY METHOD 05/21/2025 11:07 AM [facility] BUN 28(H) 5 - 25 mg/dL LAB CHEMISTRY METHOD 05/21/2025 11:07 AM [facility] LAB Creatinine 0.96 0.50 - 1.10 mg/dL LAB CHEMISTRY METHOD 05/21/2025 11:07 AM [facility] LAB eGFR 58(L) >=60 mL/min/1. 73m2 LAB CHEMISTRY METHOD 05/21/2025 11:07 AM [facility] LAB Comment:Calculation based on the Chronic Kidney Disease Epidemiology Collaboration (CKD-EPI) equation refit without adjustment for race. BUN/Creatinine Ratio 29.2 LAB CHEMISTRY METHOD 05/21/2025 11:07 AM [facility] LAB Calcium 8.7 8.5 - 10.5 mg/dL LAB CHEMISTRY METHOD 05/21/2025 11:07 AM [facility] AST (SGOT) 17 10 - 42 unit/L LAB CHEMISTRY METHOD 05/21/2025 11:07 AM [facility] ALT (SGPT) 13 10 - 60 unit/L LAB CHEMISTRY METHOD 05/21/2025 11:07 AM EDT [facility] Alkaline Phosphatase 86 42 - 121 unit/L LAB CHEMISTRY METHOD 05/21/2025 11:07 AM EDT [facility] Total Protein 6.1 6.0 - 8.0 g/dL LAB CHEMISTRY METHOD 05/21/2025 11:07 AM [facility] Albumin 3.4 3.2 - 5.0 g/dL LAB CHEMISTRY METHOD 05/21/2025 11:07 AM T [facility] Total Bilirubin 0.2 0.0 - 1.4 mg/dL LAB CHEMISTRY METHOD 05/21/2025 11:07 AM [facility] LAB Blood Venous blood specimen / Unknown Venipuncture / Unknown 05/21/2025 4:56 AM EDT 05/21/2025 10:01 AM EDT us Harris Gross MD LAB BLOOD ORDERABLES Final Resul t [facility] [address] [place] [address], * (ABNORMAL) Complete blood count (05/21/2025 4:56 AM EDT) WBC 3.1(L) 4.8 - 10.8 K/[facility] LAB HEM[facility]OLOGY [facility] RBC 2.50(L) 3.80 - 4.80 M/mcL LAB HEMETOLOGY METHOD 05/21/2025 10[facility] Hemoglobin 6.9(L) 11.5 - 16.0 g/dL LAB HEMETOLOGY METHOD 05/21/2025 10:50 AM [facility] LAB Hematocrit 22.8(L) 35.0 - 47.0 % LAB HEMETOLOGY METHOD 05/21/2025 10:50 AM EDT [facility] MCV 91.2 79.0 - 98.0 FL LAB HEMETOLOGY METHOD 05/21/2025 10:50 AM EDT [facility] MCH 27.6 27.0 - 32.0 pcg LAB HEMETOLOGY METHOD 05/21/2025 10:50 AM EDT [facility] MCHC 30.3(L) 32.0 - 37.0 g/dL LAB HEMETOLOGY METHOD 05/21/2025 10:50 AM EDT [facility] RDW 14.9 11.0 - 15.0 % LAB HEMETOLOGY METHOD 05/21/2025 10:50 AM EDT [facility] Platelets 149 130 - 400 K/mcL LAB HEMETOLOGY METHOD 05/21/2025 10:50 AM EDT [facility] MPV 11.7(H) 7.0 - 11.0 FL LAB HEMETOLOGY METHOD 05/21/2025 10:50 AM EDT [facility] NRBC 0.0 <1.0 % LAB HEMETOLOGY METHOD 05/21/2025 10:50 AM EDT [facility] NRBC Absolute 0.00 <0.10 K/mcL LAB HEMETOLOGY METHOD 05/21/2025 10:50 AM EDT [facility] Blood Venous blood specimen / Unknown Venipuncture / Unknown 05/21/2025 4:56 AM EDT 05/21/2025 10:01 AM EDT us Harris Gross MD LAB BLOOD ORDERABLES Final Resul t [facility] [address] [place] [address], documented in this encounter Visit Diagnoses Diagnosis Essential (primary) hypertension Unspecified essential hypertension Chronic obstructive pulmonary disease, unspecified (CMS/HCC V24, CMS/HCC V28) Dizziness and giddiness documented in this encounter Care Teams Wire Rigger Relationship Specialty Start Date End Date Harris Gross MD [address] [place] [address] [address] [place] [address] PCP - General Geriatric Medicine 02/13/25 documented as of this encounter
--- OUTSIDE RECORDS SUMMARY | 2025-06-16 22:54 | XMS_ITS | Data Portability ---
Author Organization [facility], Telehealth Patient Home Address [address] [place] [phone] Assessment No assessment recorded. Plan of Treatment Reminders Order Date Submit Date Provider Last Modified By Organization Details Last Modified Time Details Appointments None recorded. Lab BMP, blood [address] [facility], [address] [place] [address], [place], [phone], 9 07:42:19 lipid panel, blood [address] [facility], [address] [place] [address], [place], [address], 9 07:42:20 Referral None recorded. Procedures None recorded. Surgeries None recorded. Imaging None recorded. Medication Orders Cipro 500 mg tablet 2018 019 [id number], [address] [place], [place], [id number], 9 11:53:38 Zithromax Z-Rajesh 250 mg tablet 2018 019 [id number], [address] [place], [place], [id number], 9 11:53:23 metoprolol succinate ER 25 mg tablet,exte nded release 24 hr 2018 019 [id number], [address], [place], [id number], 9 11:15:40 Patient Targets Encounter Date Encounter Id Patient Goals Patient Target Last Modified By Organization Details Last Modified Time 09/26/2018 [id number] Call therapist to schedule counseling mindyerlinda Not available 09/26/2018 11:54:07 Patient Instructions Encounter Date Encounter Id Patient Instructions Last Modified By Organization Details Last Modified Time 09/21/2018 [id number] Relaxation, reconsider escitalopram- will review at f/u next week to avoid dual med starting together marilynn Not available 09/21/2018 15:27:44 09/26/2018 [id number] pulse oximetry* marilynn Not available 09/26/2018 11:54:08 10/08/2018 [id number] Acute Sinusitis: Care Instructions marilynn Not available 10/08/2018 11:28:17 pulse oximetry* marilynn Not available 10/08/2018 11:28:17 12/04/2018 [id number] pulse oximetry* marilynn Not available 12/04/2018 12:22:51 Reason for Referral None Reported. Results Created Date Observation Date Name Description Value Unit Range Abnormal Flag Note LastModifiedBy Organization Detail LastModifiedTime 09/26/1909/26/2018 pulse oxime try* Result 96 Not Available [facility] [address] [place] [address], [phone], 09/26/2018 11:15:30 10/08/19 19 10/08/2018 pulse oxime try* Result 97 Not Available [facility] [address] [place] [address], [phone], 10/08/2018 11:18:00 12/05/19 19 12/04/2018 pulse oxime try* Result 97 Not Available [facility] [address] [place] [address], [phone], 12/04/2018 11:55:20 Result Notes None recorded. Problems Name Problem SNOMED Code Status Onset Date Resolution Date Notes Provider Name and Address Organization Details Recorded Time Diverticul itis 325197597 Active 2017 Taina Hanson [facility] 8 16:58:14 Chronic obstructiv e pulmonary disease 46623965 Active 2017 Tainaronnell Hanson [facility] 8 16:58:22 Aortic valve stenosis 14158911 Active 2017 Tainaronnell Hanson [facility] 8 16:58:36 Anxiety 50481891 Active 2017 Tainaronnell Hanson [facility] 8 16:58:45 Cystocele 155738113 Active 2017 Tainaronnell Hanson [facility] 8 16:58:58 Abdominal aortic aneurysm 921347864 Active 2017 Samina Lama NP, [address] [place], [address], [facility] 8 13:58:39 Problem Notes None recorded. Medical Equipment None Reported. Allergies Allergen ID Allergen Name Allergen Category Reaction Reaction Severity Criticality Documentation Date Start Date Code Code System Note Provider Name and Address Organization Details Recorded Time 1547 Substance with sulfonami de structure and antibacte rial mechanism of action (substanc e) medicatio n Not available Not available Not available 02/06/2018 03392 8003 SNOMED Tainaronnell Hanson [facility] 8 16:57:43 1548 Keflex medicatio n Not available Not available Not available 02/06/2018 7 RxNorm Taina Tarangoicki [facility] 8 16:57:55 2328 Flagyl medicatio n other moderate Not available 05/29/2018 6 RxNorm [facility]nell [facility] 8 11:44:55 2717 metoprolo l Not available chest pain Not available Not available 09/21/2018 6918 RxNorm Tainaronnell Tarangoickdonaldo [facility] 9 16:31:23 Medications Name Sig [...] % 97 % 128/84 mm[Hg] Taina Sukhdeepmary [facility] 9 14:32:26 Date Recorded Body height Heart rate Oxygen saturation Oxygen saturation in Arterial blood by Pulse oximetry Systolic And Diastolic Provider Name and Address Organization Details Last Updated DateTime 9 168.91 cm 90 /min 96 % 96 % 124/80 mm[Hg] Eunice Molina [facility] 9 11:17:24 Date Recorded Heart rate Provider Name an d Address Organization Details Last Updated DateTime 10/08/2018 84 /min Samina Lama NP, [address] [place], [address], [facility] 10/08/2018 11:28:37 Date Recorded Body height Oxygen saturation Oxygen saturation in Arterial blood by Pulse oximetry Heart rate Body temperature Systolic And Diastolic Provider Name and Address Organization Details Last Updated DateTime 9 168.91 cm 97 % 97 % 112 /min 98.2 [degF] 142/86 mm[Hg] [facility] 9 11:17:37 Date Recorded Heart rate Provider Name an d Address Organization Details Last Updated DateTime 10/19/2018 80 /min Samina Lama NP, [address] [place], [address], [facility] 10/19/2018 12:04:58 Date Recorded Body height Heart rate Oxygen saturation Oxygen saturation in Arterial blood by Pulse oximetry Systolic And Diastolic Provider Name and Address Organization Details Last Updated DateTime 9 168.91 cm 105 /min 98 % 98 % 140/80 mm[Hg] Taina Hanson [facility] 9 11:45:01 Date Recorded Body height Body mass index (BMI) Body weight Oxygen saturation Oxygen saturation in Arterial blood by Pulse oximetry Heart rate Systolic And Diastolic Provider Name and Address Organization Details Last Updated DateTime 9 168.91 cm 31.1 kg/m2 06558.6 7 g 97 % 97 % 97 /min 120/90 mm[Hg] Dahiana Ha [facility] Internal [facility] 9 11:56:24 Social History Question Answer Notes LastModified by Organizat ion Details LastModified Time Tobacco Smoking Status Former Smoker Not Available [employer] 07/07/2020 03:36:24 What Was The Date Of Your Most Recent Tobacco Screening? 12/04/2018 [id number] Information not available 07/07/2020 Sex: Unknown Functional [...] virus, quadrivalent, preservative 8 completed Eunice Molina [facility] 09/26/2018 11:16:26 Past Encounters Encounter ID Performer Location Encounter Start Date Encounter Closed Date Diagnosis/Indication Diagnosis SNOMED-CT Code Diagnosis ICD10 Code Diagnosis IMO Codes Diagnosis Note [id number] Deny Saleh DO [facility] [address] [facility],[place] [address] 02/07/2018 11:02:27 02/07/2018 16:46:02 Anxiety 12783909 F41.9 Nail changes 632584066 L 60.9 Abdominal aortic aneurysm 137610555 I71.4 CT 11/2017, no changes 2016, 2.85 cm Aortic david nosis, non-rheumatic 734323393 I35.0 stable Gastroesop hageal reflux disease 089683103 K21.9 d/c [place] [employer], call if persists Insomnia 378403011 G47.0 0 review proper sleep hygiene be more active during day avoid naps [id number] Deny Saleh [facility] [address] [facility],[place] [address] 03/16/2018 11:29:23 03/20/2018 08:12:01 Dehydration 34222631 E86.0 Gastroenteritis 72394698 K52.9 Aortic valve stenosis 60 236860 I35.0 stable, follow [id number] Deny Saleh [facility] [address] [facility],[place] [address] 05/16/2018 13:23:14 05/16/2018 14:06:44 Anxiety 09299291 F41.9 BID lorazepam helps Aortic valve stenosis 60 104417 I35.0 stable, echo 05/31/2017 Active or passive immunization 950201196 Z23 Abdominal aortic aneurysm 235700198 I71.4 CT 11/2017, no changes 2016, 2.85 cm Chronic ob structive pulmonary disease 31042263 J44.9 Non smoker X years, asymptomat ic Diverticular disease 397 477235 K57.90 no recent flare [id number] Deny Saleh [facility] Internal [facility] [address] [facility],[place] [address] 05/29/2018 11:40:58 05/29/2018 16:52:51 Aortic valve stenosis 82161478 I35.0 stable, echo 05/31/2017 Anxiety 33557769 F41.9 BID lorazepam helps, discussed current fears re: Constipation 95284284 K5 9.00 [id number] Deny Saleh [facility] [address] [facility],[place] [address] 08/14/2018 11:20:27 08/14/2018 17:00:16 Anxiety 16405763 F41.9 BID lorazepam helps, discussed current fears Aortic valve stenosis 60 780728 I35.0 stable, echo 05/31/2017 Diverticulitis 971762429 K57.92 Increased frequency of urination 352845004 R35.0 [id number] Deny Saleh DO [facility] [address] [facility] [place] [address] 08/20/2018 11:12:33 08/20/2018 12:20:46 Anxiety 37171004 F41.9 BID alprazolam helps, discussed current fears Diverticulitis 623786728 K57.92 Aortic valve stenosis 60 481595 I35.0 stable, echo 05/31/2017 Family problems 39711587 4 Z63.79 Suggest therapy, names provided. Pt agrees [id number] Deny Saleh [facility] [address] [facility],[place] [address] 09/12/2018 10:19:31 09/12/2018 20:18:16 Abdominal aortic aneurysm 033039821 I71.4 CT 11/2017, no changes 2016, 2.85 cm Chronic ob structive pulmonary disease 69204737 J44.9 Non smoker X years, asymptomat ic Anxiety 45764562 F41.9 BID alprazolam helps, discussed current fears Aortic valve stenosis 60 279698 I35.0 stable, echo 05/31/2017 [id number] Deny Saleh [facility] [address] [facility] [place] [address] 09/21/2018 14:26:58 09/25/2018 11:17:00 Anxiety 06330997 F41.9 discussed current fears again, see below Aortic valve stenosis 60 737845 I35.0 [id number] Deny Saleh [facility] [address] [facility] [place] [address] 09/26/2018 11:12:05 09/26/2018 13:02:53 Hypertensive disorder 43052624 I10 Chronic ob structive pulmonary disease 89168104 J44.9 Non smoker X years, asymptomat ic Anxiety 81022915 F41.9 discussed current fears again, see below Aortic valve stenosis 60 612780 I[place] [id number] Deny Saleh [facility] [address] [facility] [place] [address] 10/08/2018 11:12:38 10/08/2018 14:35:10 Cough 11346384 R05 Acute sinusitis 24746743 J01.90 Anxiety 79457925 F41.9 revisited [id number] Deny Saleh [facility] [address] [facility],[place] [address] 10/19/2018 11:41:00 10/19/2018 12:37:34 Diverticulitis 582372436 K57.92 Intolerant Flagyl Anxiety 74911679 F41.9 revisited Aortic valve stenosis 60 846702 I35.0 asymptomat ic Abdominal aortic aneurysm 505020770 I71.4 CT 11/2017, no changes 2016, 2.85 cm Chronic ob structive pulmonary disease 58848183 J44.9 Non smoker X [place], [place] [id number] Deny Saleh [facility] [address] [facility], [place] [address] 12/04/2018 11:49:58 12/04/2018 16:03:42 Chronic obstructive pulmonary disease 95520830 J44.9 Non smoker X years, asymptomat ic Anxiety 78917796 F41.9 revisited Aortic valve stenosis 60 331486 I35.0 asymptomat ic Health Concerns Section Related Observation LastModified by Organization Detai ls LastModified Time None Recorded Concern Status LastModified by Organization Details LastModified Time None Recorded Advance Directives Directive None Recorded Payers Insurance Date Sequence Insurance Name Policy Number Policy Berry Covered Member ID Berry Member ID Guarantor Name 12/03/2018 2 [facility] INDEMNITY PLAN (INDEMNITY) [id number] Bella Henley [id number] Bella Henley 12/03/2018 1 MEDICARE [place]: [employer] Bella Henley [id number] Bella Henley Notes Date Note Type Note Provider Name a nd Address Organization Details Recorded Time 09/21/2018 text/html ROS as noted in the HPI Here with concerns BP had panic attack this am, ambulance was called Checked BP after pts episode was 158/101 Did not start escitalopram prescribed last week , under a great deal of stress Samina Lama NP, [address] [place], [address], [facility] 09/21/2018 15:27:56 09/26/2018 text/html ROS as noted in the HPI see previous note ( visit 09/21/18 ) , unable to [...] to complete ADL's Samina Lama NP, S [address] [place] [address], [phone], [facility] 09/26/2018 11:54:50 10/08/2018 text/html ROS as noted in the HPI Same day visit coughing X 6 days [...] family situation Samina Lama NP, [address] [place], [address], [facility] 10/08/2018 11:49:45 10/19/2018 text/html Yesterday felt ok last night 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 this a.m. also increased voiding w/no dysuria no N/V/D/C, no BRBPR or hematuria Samina Lama NP, [address] [place], [address], [facility] 10/19/2018 12:09:27 12/04/2018 text/html ROS as noted in the HPI Very anxious re: husbands cognitive decline/getting worn out In therapy w/Peter Dopp Son also recent renal cancer, surgery went well.-but pt. gets worked up over everything pt recently started back on allergy shots some heartburn and post nasal drip Samina Lama, [employer], [address] [facility], [place], [address], [facility] 12/04/2018 12:23:16 OBGyn Episode No OBEpisode recorded.
--- OUTSIDE RECORDS SUMMARY | 2025-06-16 22:54 | XMS_ITS | Encounter Summary ---
Author Organization [facility] Address [address] [place] [address] Care Team Providers Care Zigzag Stitcher Name Role Phone Harris Gross MD Primary Care Provider [phone] Encounter Details Date Type Department Care Team (Late st Contact Info) Description 05/25/2025 Lab Requisition [facility] - Main Lab [address] [facility] [place] [address] Harris Gross MD [address] [place], [place] [id number] Essential (primary) hypertension; Chronic obstructive pulmonary disease, unspecified (CMS/HCC V24, CMS/HCC V28); Gastro-esophageal reflux disease without esophagitis; Anemia, unspecified Social History Tobacco Use Types [...] Procedure Name Priority Date/Time Associated Diagnosis Comments IRON AND TIBC Routine 05/26/2025 4:52 AM EDT Essential (primary) hypertension Chronic obstructive pulmonary disease, unspecified (CMS/HCC V24, CMS/HCC V28) Gastro-esophageal reflux disease without esophagitis Anemia, unspecified COMPLETE BLOOD COUNT Routine 05/26/2025 4:52 AM EDT Essential (primary) hypertension Chronic obstructive pulmonary disease, unspecified (CMS/HCC V24, CMS/HCC V28) Gastro-esophageal reflux disease without esophagitis Anemia, unspecified FERRITIN Routine 05/26/2025 4:52 AM EDT Essential (primary) hypertension Chronic obstructive pulmonary disease, unspecified (CMS/HCC V24, CMS/HCC V28) Gastro-esophageal reflux disease without esophagitis Anemia, unspecified BASIC METABOLIC PANEL Routine 05/26/2025 4:52 AM EDT Essential (primary) hypertension Chronic obstructive pulmonary disease, unspecified (CMS/HCC V24, CMS/HCC V28) Gastro-esophageal reflux disease without esophagitis Anemia, unspecified documented in this encounter Results * Ferritin (05/26/2025 4:52 AM EDT) Ferritin 23 8 - 252 ng/mL LAB CHEMISTRY METHOD 05/26/2025 12:57 PM EDT [facility] Blood Venous blood specimen / Unknown Venipuncture / Unknown 05/26/2025 4:52 AM EDT 05/26/2025 10:18 AM EDT us Harris Gross MD LAB BLOOD ORDERABLES Final Resul t [facility] [address] [place] [address], * Iron and TIBC (05/26/2025 4:52 AM EDT) Iron 88 40 - 150 mcg/dL LAB CHEMISTRY METHOD 05/26/2025 12:56 PM EDT [facility] TIBC 358 250 - 450 mcg/dL LAB CHEMISTRY METHOD 05/26/2025 12:56 PM EDT [facility] Iron Saturation 25 15 - 50 % LAB CHEMISTRY METHOD 05/26/2025 12:56 PM EDT [facility] Blood Venous blood specimen / Unknown Venipuncture / Unknown 05/26/2025 4:52 AM EDT 05/26/2025 10:18 AM EDT us Harris Gross MD LAB BLOOD ORDERABLES Final Resul t [facility] [address] [place] [address], * (ABNORMAL) Basic metabolic panel (05/26/2025 4:52 AM EDT) Sodium 141 133 - 145 mmol/L LAB CHEMISTRY METHOD 05/26/2025 12:56 PM EDT [facility] Potassium 4.8 3.5 - 5.5 mmol/L LAB CHEMISTRY METHOD 05/26/2025 12:56 PM [facility] Chloride 108 96 - 110 mmol/L LAB CHEMISTRY METHOD 05/26/2025 12:56 PM [facility] CO2 30 21 - 32 mmol/L LAB CHEMISTRY METHOD 05/26/2025 12:56 PM [facility] Anion Gap 3 3 - 11 LAB CHEMISTRY METHOD 05/26/2025 12:56 PM [facility] Glucose 75 70 - 100 mg/dL LAB CHEMISTRY METHOD 05/26/2025 12:56 PM [facility] BUN 21 5 - 25 mg/dL LAB CHEMISTRY METHOD 05/26/2025 12:56 PM [facility] Creatinine 0.98 0.50 - 1.10 mg/dL LAB CHEMISTRY METHOD 05/26/2025 12:56 PM [facility] eGFR 57(L) >=60 mL/min/1. 73m2 LAB CHEMISTRY METHOD 05/26/2025 12:56 PM [facility] Comment:Calculation based on the Chronic Kidney Disease Epidemiology Collaboration (CKD-EPI) equation refit without adjustment for race. BUN/Creatinine Ratio 21.4 LAB CHEMISTRY METHOD 05/26/2025 12:56 PM [facility] Calcium 9.1 8.5 - 10.5 mg/dL LAB CHEMISTRY METHOD 05/26/2025 12:56 PM EDT [facility] Blood Venous blood specimen / Unknown Venipuncture / Unknown 05/26/2025 4:52 AM EDT 05/26/2025 10:18 AM EDT us Harris Gross MD LAB BLOOD ORDERABLES Final Resul t [facility] [address] [place] [address], * (ABNORMAL) Complete blood count (05/26/2025 4:52 AM EDT) WBC 3.5(L) 4.8 - 10.8 K/mcL LAB HEMETOLOGY METHOD 05/26/2025 12:53 PM EDT [facility] RBC 2.70(L) 3.80 - 4.80 M/mcL LAB HEMETOLOGY METHOD 05/26/2025 12:53 PM EDT [facility] Hemoglobin 7.5(L) 11.5 - 16.0 g/dL LAB HEMETOLOGY METHOD 05/26/2025 12:53 PM EDT [facility] Hematocrit 25.0(L) 35.0 - 47.0 % LAB HEMETOLOGY METHOD 05/26/2025 12:53 PM EDT [facility] MCV 92.3 79.0 - 98.0 FL LAB HEMETOLOGY METHOD 05/26/2025 12:53 PM EDT [facility] MCH 27.7 27.0 - 32.0 pcg LAB HEMETOLOGY METHOD 05/26/2025 12:53 PM EDT [facility] MCHC 30.0(L) 32.0 - 37.0 g/dL LAB HEMETOLOGY METHOD 05/26/2025 12:53 PM EDT [facility] RDW 15.2(H) 11.0 - 15.0 % LAB HEMETOLOGY METHOD 05/26/2025 12:53 PM EDT [facility] Platelets 156 130 - 400 K/mcL LAB HEMETOLOGY METHOD 05/26/2025 12:53 PM EDT [facility] MPV 12.4(H) 7.0 - 11.0 FL LAB HEMETOLOGY METHOD 05/26/2025 12:53 PM EDT [facility] NRBC 0.0 <1.0 % LAB HEMETOLOGY METHOD 05/26/2025 12:53 PM EDT [facility] NRBC Absolute 0.00 <0.10 K/mcL [facility] 05/26/2025 12:53 PM EDT [facility] Blood Venous blood specimen / Unknown Venipuncture / Unknown 05/26/2025 4:52 AM EDT 05/26/2025 10:18 AM EDT Harris Gross MD LAB BLOOD ORDERABLES Final Resul t [facility] [address] [place] [address], documented in this encounter Visit Diagnoses Diagnosis Essential (primary) hypertension Unspecified essential hypertension Chronic obstructive pulmonary disease, unspecified (CMS/HCC V24, CMS/HCC V28) Gastro-esophageal reflux disease without esophagitis Anemia, unspecified documented in this encounter Care Teams Zigzag Stitcher Relationship Specialty Start Date End Date Harris Gross MD [address] [place] [address] [address] [place] [address] PCP - General Geriatric Medicine 02/13/25 documented as of this encounter
--- OUTSIDE RECORDS SUMMARY | 2025-06-16 22:55 | XMS_ITS | Encounter Summary ---
Author Organization [facility] Address [address] [place] [address] Care Team Providers Care Forecast Analyst Name Role Phone Harris Gross MD Primary Care Provider [phone] Encounter Details Date Type Department Care Team (Late st Contact Info) Description 06/06/2025 Lab Requisition [facility] - Main Lab [address] [facility] [place] [address] Harris Gross MD [address] [place], [place] [id number] Essential (primary) hypertension; Chronic obstructive pulmonary disease, unspecified (CMS/HCC V24, CMS/HCC V28) Social History Tobacco Use Types Packs/Day Years [...] Associated Diagnosis Comments COMPLETE BLOOD COUNT Routine 06/09/2025 4:55 AM EDT Essential (primary) hypertension Chronic obstructive pulmonary disease, unspecified (CMS/HCC V24, CMS/HCC V28) BASIC METABOLIC PANEL Routine 06/09/2025 4:55 AM EDT Essential (primary) hypertension Chronic obstructive pulmonary disease, unspecified (CMS/HCC V24, CMS/HCC V28) documented in this encounter Results * (ABNORMAL) Basic metabolic panel (06/09/2025 4:55 AM EDT) Sodium 138 133 - 145 mmol/L LAB CHEMISTRY METHOD 06/09/2025 11:[address] [facility] Potassium 4.4 3.5 - 5.5 mmol/L LAB CHEMISTRY METHOD 06/09/2025 11:[address] [facility] Chloride 104 96 - 110 mmol/L LAB CHEMISTRY METHOD 06/09/2025 11:[address] [facility] CO2 29 21 - 32 mmol/L LAB CHEMISTRY METHOD 06/09/2025 11:[address] [facility] Anion Gap 5 3 - 11 LAB CHEMISTRY METHOD 06/09/2025 11:[address] [facility] Glucose 73 70 - 100 mg/dL LAB CHEMISTRY METHOD 06/09/2025 11:[address] [facility] BUN 26(H) 5 - 25 mg/dL LAB CHEMISTRY METHOD 06/09/2025 11:[address] [facility] Creatinine 0.93 0.50 - 1.10 mg/dL LAB CHEMISTRY METHOD 06/09/2025 11:[address] [facility] eGFR 61 >=60 mL/min/1. 73m2 LAB CHEMISTRY METHOD 06/09/2025 11:[address] [facility] Comment:Calculation based on the Chronic Kidney Disease Epidemiology Collaboration (CKD-EPI) equation refit without adjustment for race. BUN/Creatinine Ratio 28.0 LAB CHEMISTRY METHOD 06/09/2025 11:[address] [facility] Calcium 9.1 8.5 - 10.5 mg/dL LAB CHEMISTRY METHOD 06/09/2025 11:[address] [facility] Blood Venous blood specimen / Unknown Venipuncture / Unknown 06/09/2025 4:55 AM EDT 06/09/2025 10:20 AM EDT Harris Gross MD LAB BLOOD ORDERABLES Final Resul t [facility] [address] [place] [address], * (ABNORMAL) Complete blood count (06/09/2025 4:55 AM EDT) WBC 3.1(L) 4.8 - 10.8 K/mcL LAB HEMETOLOGY METHOD 06/09/2025 11:14 AM EDT [facility] RBC 2.80(L) 3.80 - 4.80 M/mcL LAB HEMETOLOGY METHOD 06/09/2025 11:14 AM EDT [facility] Hemoglobin 8.0(L) 11.5 - 16.0 g/dL LAB HEMETOLOGY METHOD 06/09/2025 11:[address] [facility] Hematocrit 26.2(L) 35.0 - 47.0 % LAB HEMETOLOGY METHOD 06/09/2025 11:14 AM EDT [facility] MCV 94.9 79.0 - 98.0 FL LAB HEMETOLOGY METHOD 06/09/2025 11:14 AM EDT [facility] MCH 29.0 27.0 - 32.0 pcg LAB HEMETOLOGY METHOD 06/09/2025 11:[address] [facility] MCHC 30.5(L) 32.0 - 37.0 g/dL LAB HEMETOLOGY METHOD 06/09/2025 11:14 AM EDT [facility] RDW 18.4(H) 11.0 - 15.0 % LAB HEMETOLOGY METHOD 06/09/2025 11:14 AM EDT [facility] Platelets 130 130 - 400 K/mcL LAB HEMETOLOGY METHOD 06/09/2025 11:[address] [facility] MPV 12.1(H) 7.0 - 11.0 FL LAB HEMETOLOGY METHOD 06/09/2025 11:14 AM EDT [facility] NRBC 0.0 <1.0 % LAB HEMETOLOGY METHOD 06/09/2025 11:14 AM EDT [facility] NRBC Absolute 0.00 <0.10 K/mcL LAB HEMETOLOGY METHOD 06/09/2025 11:14 AM EDT [facility] Blood Venous blood specimen / Unknown Venipuncture / Unknown 06/09/2025 4:55 AM EDT 06/09/2025 10:20 AM EDT us Harris Gross MD LAB BLOOD ORDERABLES Final Resul t [facility] [address] [place] [address], documented in this encounter Visit Diagnoses Diagnosis Essential (primary) hypertension Unspecified essential hypertension Chronic obstructive pulmonary disease, unspecified (CMS/HCC V24, CMS/HCC V28) documented in this encounter Care Teams Forecast Analyst Relationship Specialty Start Date End Date Harris Gross MD [address] [place] [address] [address] [place] [address] PCP - General Geriatric Medicine 02/13/25 documented as of this encounter
--- OUTSIDE RECORDS SUMMARY | 2025-06-16 22:55 | XMS_ITS | Clinical Summary ---
Author Organization [address] Address [address] [place] [address] Phone Care Team Providers Care Oil Deliverer Name Role Phone Harris Gross MD Primary Care Provider [phone] Encounters Date Type Department Care Team Description 06/13/2025 Lab Requisition [facility] Lab [address] [place] [phone] Harris Gross MD Essential (primary) hypertension; Chronic obstructive pulmonary disease, unspecified (CMS/HCC V24, CMS/HCC V28) 06/06/2025 Lab Requisition [facility] Lab [address] [place] [phone] Harris Gross MD Essential (primary) hypertension; Chronic obstructive pulmonary disease, unspecified (CMS/HCC V24, CMS/HCC V28) 05/30/2025 Lab Requisition [facility] Lab [address] [place] [phone] Harris Gross MD Essential (primary) hypertension; Chronic obstructive pulmonary disease, unspecified (CMS/HCC V24, CMS/HCC V28) 05/30/2025 Lab Requisition [facility] Lab [address] [place] [phone] Harris Gross MD Frequency of micturition 05/28/2025 Lab Requisition [facility] Lab [address] [place] [phone] Harris Gross MD Essential (primary) hypertension 05/25/2025 Lab Requisition [facility] - Main Lab [address] [place] [address] Harris Gross MD Essential (primary) hypertension; Chronic obstructive pulmonary disease, unspecified ([facility] V24, CMS/[facility] V28); Gastro-esophageal reflux disease without esophagitis; Anemia, unspecified 05/22/2025 Lab Requisition [facility] Main Lab [address] [place] [phone] Harris Gross MD Essential (primary) hypertension; Anemia, unspecified 05/21/2025 Lab Requisition [facility] Lab [address] [place] [address] Harris Gross MD Essential (primary) hypertension; Chronic obstructive pulmonary disease, unspecified (CMS/[facility] V24, CMS/[facility] V28); Dizziness and giddiness from Last 3 Months Social History Tobacco [...] Zoster Vaccines (2 of 3) 11/24/2016 09/29/2016 Cholesterol Screening (Lipid Panel) 10/03/2023 Falls Risk Assessment 10/03/2023 Medicare Annual Wellness Visit 10/03/2023 Osteoporosis Screening (Bone Density Screening) 10/03/2023 Social Influencers of Health Screening 10/03/2023 Depression Screening 09/04/2024 COVID-19 Vaccine (3 - season) 2025 06/29/2021, 10/30/2020 Influenza Vaccine (#1) 2025 , 06/17/2018, 05/07/2018 Hypertension/CHF/CAD Annual BMP Blood Test 06/16/2026 06/16/2025, 06/09/2025, 06/02/2025, Additional history exists HIB Vaccines Aged Out No longer eligi [...] 20 months Aged Out No longer eligible based on patient's age to complete this topic Varicella Vaccines Aged Out No longer eligible based on patient's age to complete this topic Procedures Procedure Name Priority Date/Time Associated Diagnosis Comments BASIC METABOLIC PANEL Routine 06/16/2025 5:01 AM EDT Essential (primary) hypertension Chronic obstructive pulmonary disease, unspecified (CMS/HCC V24, CMS/HCC V28) COMPLETE BLOOD COUNT Routine 06/16/2025 5:01 AM EDT Essential (primary) hypertension Chronic obstructive pulmonary disease, unspecified (CMS/HCC V24, CMS/HCC V28) BASIC METABOLIC PANEL Routine 06/09/2025 4:55 AM EDT Essential (primary) hypertension Chronic obstructive pulmonary disease, unspecified (CMS/HCC V24, CMS/HCC V28) COMPLETE BLOOD COUNT Routine 06/09/2025 4:55 AM EDT Essential (primary) hypertension Chronic obstructive pulmonary disease, unspecified (CMS/HCC V24, CMS/HCC V28) BASIC METABOLIC PANEL Routine 06/02/2025 4:54 AM EDT Essential (primary) hypertension Chronic obstructive pulmonary disease, unspecified (CMS/HCC V24, CMS/HCC V28) COMPLETE BLOOD COUNT Routine 06/02/2025 4:54 AM EDT Essential (primary) hypertension Chronic obstructive pulmonary disease, unspecified (CMS/HCC V24, CMS/HCC V28) URINALYSIS WITH REFLEX MICROSCOPIC Routine 05/29/2025 8:00 AM EDT Frequency of micturition URINALYSIS WITH REFLEX MICROSCOPIC Routine 05/29/2025 8:00 AM EDT Frequency of micturition CULTURE URINE Routine 05/29/2025 8:00 AM EDT Frequency of micturition BASIC METABOLIC PANEL Routine 05/29/2025 6:50 AM EDT Essential (primary) hypertension COMPLETE BLOOD COUNT Routine 05/29/2025 6:50 AM EDT Essential (primary) hypertension FERRITIN Routine 05/26/2025 4:52 AM EDT Essential (primary) hypertension Chronic obstructive pulmonary disease, unspecified (CMS/HCC V24, CMS/HCC V28) Gastro-esophageal reflux disease without esophagitis Anemia, unspecified IRON AND TIBC Routine 05/26/2025 4:52 AM [...] esophagitis Anemia, unspecified BASIC METABOLIC PANEL Routine 05/22/2025 5:27 AM EDT Essential (primary) hypertension Anemia, unspecified COMPLETE BLOOD COUNT Routine 05/22/2025 5:27 AM EDT Essential (primary) hypertension Anemia, unspecified COMPREHENSIVE METABOLIC PANEL Routine 05/21/2025 4:56 AM EDT Essential (primary) hypertension Chronic obstructive pulmonary disease, unspecified (CMS/HCC V24, CMS/HCC V28) Dizziness and giddiness COMPLETE BLOOD COUNT Routine 05/21/2025 4:56 AM EDT Essential (primary) hypertension Chronic obstructive pulmonary disease, unspecified (CMS/HCC V24, CMS/HCC V28) Dizziness and giddiness from Last 3 Months Results * (ABNORMAL) Complete blood count (06/16/2025 5:01 AM EDT) Only the most recent of7 resultswithin the time period is included. WBC 3.2(L) 4.8 - 10.8 K/mcL LAB HEMETOLOGY METHOD 06/16/2025 10:06 AM [facility] RBC 2.80(L) 3.80 - 4.80 M/mcL LAB HEMETOLOGY METHOD 06/16/2025 10:06 AM [facility] Hemoglobin 8.3(L) 11.5 - 16.0 g/dL LAB HEMETOLOGY METHOD 06/16/2025 10:06 AM [facility] Hematocrit 27.0(L) 35.0 - 47.0 % LAB HEMETOLOGY METHOD 06/16/2025 10:06 AM [facility] MCV 95.7 79.0 - 98.0 FL LAB HEMETOLOGY METHOD 06/16/2025 10:06 AM [facility] MCH 29.4 27.0 - 32.0 pcg LAB HEMETOLOGY METHOD 06/16/2025 10:06 AM [facility] MCHC 30.7(L) 32.0 - 37.0 g/dL LAB HEMETOLOGY METHOD 06/16/2025 10:06 AM EDT [facility] RDW 17.9(H) 11.0 - 15.0 % LAB HEMETOLOGY METHOD 06/16/2025 10:06 AM EDT [facility] Platelets 119(L) 130 - 400 K/mcL LAB HEMETOLOGY METHOD 06/16/2025 10:06 AM EDT [facility] MPV 12.1(H) 7.0 - 11.0 FL LAB HEMETOLOGY METHOD 06/16/2025 10:06 AM EDT [facility] NRBC 0.0 <1.0 % [facility] 06/16/2025 10:06 AM EDT [facility] NRBC Absolute 0.00 <0.10 K/mcL [facility] 06/16/2025 10:06 AM T [facility] Blood Venous blood specimen / Unknown Venipuncture / Unknown 06/16/2025 5:01 AM EDT 06/16/2025 9:03 AM EDT Harris Gross MD LAB BLOOD ORDERABLES Final Resul t [facility] [address] [place] [address], * (ABNORMAL) Basic metabolic panel (06/16/2025 5:01 AM EDT) Only the most recent of6 resultswithin the time period is included. Sodium 138 133 - 145 mmol/L LAB CHEMISTRY METHOD 06/16/2025 10:31 AM EDT [facility] Potassium 4.3 3.5 - 5.5 mmol/L LAB CHEMISTRY METHOD 06/16/2025 10:31 AM EDT [facility] Chloride 104 96 - 110 mmol/L LAB CHEMISTRY METHOD 06/16/2025 10:31 AM [facility] CO2 28 21 - 32 mmol/L LAB CHEMISTRY METHOD 06/16/2025 10:31 AM [facility] Anion Gap 6 3 - 11 LAB CHEMISTRY METHOD 06/16/2025 10:31 AM [facility] Glucose 77 70 - 100 mg/dL LAB CHEMISTRY METHOD 06/16/2025 10:31 AM [facility] BUN 27(H) 5 - 25 mg/dL LAB CHEMISTRY METHOD 06/16/2025 10:31 AM [facility] Creatinine 0.89 0.50 - 1.10 mg/dL LAB CHEMISTRY METHOD 06/16/2025 10:31 AM [facility] eGFR 64 >=60 mL/min/1. 73m2 LAB CHEMISTRY METHOD 06/16/2025 10:31 AM [facility] Comment:Calculation based on the Chronic Kidney Disease Epidemiology Collaboration (CKD-EPI) equation refit without adjustment for race. BUN/Creatinine Ratio 30.3 LAB CHEMISTRY METHOD 06/16/2025 10:31 AM [facility] Calcium 9.3 8.5 - 10.5 mg/dL LAB CHEMISTRY METHOD 06/16/2025 10:31 AM [facility] Blood Venous blood specimen / Unknown Venipuncture / Unknown 06/16/2025 5:01 AM EDT 06/16/2025 9:03 AM EDT us Harris Gross MD LAB BLOOD ORDERABLES Final Resul t [facility] [address] [place] [address], * Urinalysis with reflex microscopic (05/29/2025 8:00 AM EDT) Specific [place] Urine 1.016 1.003 - 1.030 LAB URINALYSIS - AUTOMATED METHOD 05/30/2025 8:36 AM [facility] pH, Urine 5.5 5.0 - 8.0 pH LAB URINALYSIS - AUTOMATED METHOD 05/30/2025 8:36 AM [facility] Leukocytes, Urine Negative Negative LAB URINALYSIS - AUTOMATED METHOD 05/30/2025 8:36 AM [facility] Nitrite, Urine Negative Negative LAB URINALYSIS - AUTOMATED METHOD 05/30/2025 8:36 AM [facility] Protein, Urine Negative <=Trace mg/dL LAB URINALYSIS - AUTOMATED METHOD 05/30/2025 8:36 AM [facility] Glucose, Urine Negative Negative mg/dL LAB URINALYSIS - AUTOMATED METHOD 05/30/2025 8:36 AM [facility] Ketones, Urine Negative Negative mg/dL LAB URINALYSIS - AUTOMATED METHOD 05/30/2025 8:36 AM [facility] Urobilinogen, Urine 0.2 0.2 - 1.0 mg/dL LAB URINALYSIS - AUTOMATED METHOD 05/30/2025 8:36 AM [facility] Bilirubin, Urine Negative Negative LAB URINALYSIS - AUTOMATED METHOD 05/30/2025 8:36 AM [facility] Blood, Urine Negative Negative LAB URINALYSIS - AUTOMATED METHOD 05/30/2025 8:36 AM [facility] Urine Urine specimen obtained by clean catch procedure / Unknown Non-blood Collection / Unknown 05/29/2025 8:00 AM EDT 05/30/2025 8:05 AM EDT us Harris Gross MD LAB URINE ORDERABLES Final Resul t [facility] [address] [place] [address], * (ABNORMAL) Culture urine (05/29/2025 8:00 AM EDT) Culture, Urine 10,000-49,000 CFU/mL Streptococcus viridans group(A) 06/03/2025 8:59 AM EDT [facility] Comment: Susceptibility testing not routinely performed. If further therapeutic information is required, please consult an infectious disease specialist. The organism value for this result has been updated. These results have been appended to the previously preliminary verified report. Urine Urine specimen obtained by clean catch procedure / Unknown Non-blood Collection / Unknown 05/29/2025 8:00 AM EDT 05/30/2025 8:05 AM EDT Narrative [facility] - 06/03/2025 8:59 AM EDT Additional colony types present in insignificant amounts. Harris Gross MD LAB MICROBIOLOGY - GENERAL ORDER ROEL Final Result Performing Organization Address City/[facility]/ZIP Co de Phone Number [facility] [address] [place] [address], [place] [phone] * Iron and TIBC (05/26/2025 4:52 AM EDT) Pathologist [facility] Iron 88 40 - 150 mcg/dL LAB CHEMISTRY METHOD 05/26/2025 12:56 PM EDT [facility] TIBC 358 250 - 450 mcg/dL LAB CHEMISTRY METHOD 05/26/2025 12:56 PM EDT [facility] Iron Saturation 25 15 - 50 % LAB CHEMISTRY METHOD 05/26/2025 12:56 PM EDT [facility] Blood Venous blood specimen / Unknown Venipuncture / Unknown 05/26/2025 4:52 AM EDT 05/26/2025 10:18 AM EDT us Harris Gross MD LAB BLOOD ORDERABLES Final Resul t Performing Organization Address City/[facility]/ZIP Co de Phone Number [facility] [address] [place] [address], [place] [phone] * Ferritin (05/26/2025 4:52 AM EDT) [facility] Ferritin 23 8 - 252 ng/mL LAB CHEMISTRY METHOD 05/26/2025 12:57 PM EDT [facility] Blood Venous blood specimen / Unknown Venipuncture / Unknown 05/26/2025 4:52 AM EDT 05/26/2025 10:18 AM EDT Harris Gross MD LAB BLOOD ORDERABLES Final Resul t [facility] [address] [place] [address], [place] [phone] * (ABNORMAL) Comprehensive metabolic panel (05/21/2025 4:56 AM EDT) [facility] Sodium 138 133 - 145 mmol/L LAB CHEMISTRY METHOD 05/21/2025 11:07 AM [facility] Potassium 4.2 3.5 - 5.5 mmol/L LAB CHEMISTRY METHOD 05/21/2025 11:07 AM [facility] Chloride 104 96 - 110 mmol/L LAB CHEMISTRY METHOD 05/21/2025 11:07 AM [facility] CO2 29 21 - 32 mmol/L LAB CHEMISTRY METHOD 05/21/2025 11:07 AM [facility] Anion Gap 5 3 - 11 LAB CHEMISTRY METHOD 05/21/2025 11:07 AM [facility] Glucose 74 70 - 100 mg/dL LAB CHEMISTRY METHOD 05/21/2025 11:07 AM [facility] BUN 28(H) 5 - 25 mg/dL LAB CHEMISTRY METHOD 05/21/2025 11:07 AM [facility] Creatinine 0.96 0.50 - 1.10 mg/dL LAB CHEMISTRY METHOD 05/21/2025 11:07 AM [facility] eGFR 58(L) >=60 mL/min/1. 73m2 LAB CHEMISTRY METHOD 05/21/2025 11:07 AM [facility] Comment:Calculation based on the Chronic Kidney Disease Epidemiology Collaboration (CKD-EPI) equation refit without adjustment for race. BUN/Creatinine Ratio 29.2 LAB CHEMISTRY METHOD 05/21/2025 11:07 AM [facility] Calcium 8.7 8.5 - 10.5 mg/dL LAB CHEMISTRY METHOD 05/21/2025 11:07 AM [facility] AST (SGOT) 17 10 - 42 unit/L LAB CHEMISTRY METHOD 05/21/2025 11:07 AM [facility] ALT (SGPT) 13 10 - 60 unit/L LAB CHEMISTRY METHOD 05/21/2025 11:07 AM [facility] Alkaline Phosphatase 86 42 - 121 unit/L LAB CHEMISTRY METHOD 05/21/2025 11:07 AM [facility] Total Protein 6.1 6.0 - 8.0 g/dL LAB CHEMISTRY METHOD 05/21/2025 11:07 AM [facility] Albumin 3.4 3.2 - 5.0 g/dL LAB CHEMISTRY METHOD 05/21/2025 11:07 AM [facility] Total Bilirubin 0.2 0.0 - 1.4 mg/dL LAB CHEMISTRY METHOD 05/21/2025 11:07 AM [facility] Blood Venous blood specimen / Unknown Venipuncture / Unknown 05/21/2025 4:56 AM EDT 05/21/2025 10:01 AM EDT us Harris Gross MD LAB BLOOD ORDERABLES Final Resul t [facility] [address] [place] [address], [place] [phone] from Last 3 Months Insurance MEDICARE [facility] Advance Directives Documents on File Type Date 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
--- OUTSIDE RECORDS SUMMARY | 2025-06-16 22:55 | XMS_ITS | Encounter Summary ---
Author Organization [facility] Address [address] [place] [address] Care Team Providers Care Bridge Leverman Name Role Phone Harris Gross MD Primary Care Provider [phone] Encounter Details Date Type Department Care Team (Late st Contact Info) Description 03/06/[address] [facility] - Main Lab [address] [facility] [place] [address] Harris Gross MD [address] [place], [place] [id number] Altered mental status, unspecified; Dysuria Social History [...] reflex microscopic (03/06/2025 12:00 AM EDT) Specific [place] Urine 1.008 1.003 - 1.030 LAB URINALYSIS [...] [facility] Bilirubin, Urine Negative Negative LAB URINALYSIS - AUTOMATED METHOD 03/06/2025 10:34 AM [facility] Blood, Urine Negative Negative LAB URINALYSIS - AUTOMATED METHOD 03/06/2025 10:34 AM [facility] Urine Urine specimen obtained by clean catch procedure / Unknown 03/06/2025 03/06/2025 8:51 AM EDT us Harris Gross MD LAB URINE ORDERABLES Final Resul t [facility] [address] [place] [address], * Culture urine (03/06/2025 12:00 AM EDT) Culture, Urine <10,000 CFU/mL gram positive cocci, insignificant count, no further workup 03/07/2025 1:00 PM EDT [facility] Urine Urine specimen obtained by clean catch procedure / Unknown 03/06/2025 03/06/2025 8:51 AM EDT Harris Gross MD LAB MICROBIOLOGY - GENERAL ORDER ROEL Final Result [facility] [address] [place] [address], documented in this encounter Visit Diagnoses Diagnosis Altered mental status, unspecified Dysuria documented in this encounter Care Teams Bridge Leverman Relationship Specialty Start Date End Date Harris Gross MD [address] [place] [address] [address] [place] [address] PCP - General Geriatric Medicine 02/13/25 documented as of this encounter
--- OUTSIDE RECORDS SUMMARY | 2025-06-16 22:55 | XMS_ITS | Encounter Summary ---
Author Organization [facility] Address [address] [place] [address] Care Team Providers Care Registered Nurse Maternity Name Role Phone Harris Gross MD Primary Care Provider [phone] Encounter Details Date Type Department Care Team (Late st Contact Info) Description 05/30/[address] [facility] - Main Lab [address] [facility] [place] [address] Harris Gross MD [address] [place], [place] [id number] Frequency of micturition Social History Tobacco Use Types Packs/Day Years [...] Diagnosis Comments URINALYSIS WITH REFLEX MICROSCOPIC Routine 05/29/2025 8:00 AM EDT Frequency of micturition URINALYSIS WITH REFLEX MICROSCOPIC Routine 05/29/2025 8:00 AM EDT Frequency of micturition CULTURE URINE Routine 05/29/2025 8:00 AM EDT Frequency of micturition documented in this encounter Results * Urinalysis with reflex microscopic (05/29/2025 8:00 AM EDT) Specific [place] Urine 1.016 1.003 - 1.030 LAB URINALYSIS - AUTOMATED METHOD 05/30/2025 8:36 AM [facility] pH, Urine 5.5 5.0 - 8.0 pH LAB URINALYSIS - AUTOMATED METHOD 05/30/2025 8:36 AM [facility] Leukocytes, Urine Negative Negative LAB URINALYSIS - AUTOMATED METHOD 05/30/2025 8:36 AM [facility] Nitrite, Urine Negative Negative LAB URINALYSIS - AUTOMATED METHOD 05/30/2025 8:36 AM [facility] Protein, Urine Negative <=Trace mg/dL LAB URINALYSIS - AUTOMATED METHOD 05/30/2025 8:36 AM [facility] Glucose, Urine Negative Negative mg/dL LAB URINALYSIS - AUTOMATED METHOD 05/30/2025 8:36 AM [facility] Ketones, Urine Negative Negative mg/dL LAB URINALYSIS - AUTOMATED METHOD 05/30/2025 8:36 AM [facility] Urobilinogen, Urine 0.2 0.2 - 1.0 mg/dL LAB URINALYSIS - AUTOMATED METHOD 05/30/2025 8:36 AM [facility] Bilirubin, Urine Negative Negative LAB URINALYSIS - AUTOMATED METHOD 05/30/2025 8:36 AM [facility] Blood, Urine Negative Negative LAB URINALYSIS - AUTOMATED METHOD 05/30/2025 8:36 AM [facility] Urine Urine specimen obtained by clean catch procedure / Unknown Non-blood Collection / Unknown 05/29/2025 8:00 AM EDT 05/30/2025 8:05 AM EDT us Harris Gross MD LAB URINE ORDERABLES Final Resul t [facility] [address] [place] [address], * (ABNORMAL) Culture urine (05/29/2025 8:00 AM EDT) Culture, Urine 10,000-49,000 CFU/mL Streptococcus viridans group(A) 06/03/2025 8:59 AM EDT [facility] Comment: Susceptibility testing not routinely performed. If further therapeutic information is required, please consult an infectious disease specialist. The organism value for this result has been updated. These results have been appended to the previously preliminary verified report. Urine Urine specimen obtained by clean catch procedure / Unknown Non-blood Collection / Unknown 05/29/2025 8:00 AM EDT 05/30/2025 8:05 AM EDT Narrative [facility] - 06/03/2025 8:59 AM EDT Additional colony types present in insignificant amounts. Harris Gross MD LAB MICROBIOLOGY - GENERAL ORDER ROEL Final Result [facility] [address] [place] [address], documented in this encounter Visit Diagnoses Diagnosis Frequency of micturition Urinary frequency documented in this encounter Care Teams Registered Nurse Maternity Relationship Specialty Start Date End Date Harris Gross MD [address] [place] [address] [address] [place] [address] PCP - General Geriatric Medicine 02/13/25 documented as of this encounter
--- OUTSIDE RECORDS SUMMARY | 2025-06-16 22:55 | XMS_ITS | Encounter Summary ---
Author Organization [facility] Address [address] [place] [address] Care Team Providers Care Special Procedures Tech Name Role Phone Harris Gross MD Primary Care Provider [phone] Encounter Details Date Type Department Care Team (Late st Contact Info) Description 05/30/2025 Lab Requisition [facility] - Main Lab [address] [facility] [place] [address] Harris Gross MD [address] [place], [place] [phone] Essential (primary) hypertension; Chronic obstructive pulmonary disease, [...] Associated Diagnosis Comments COMPLETE BLOOD COUNT Routine 06/02/2025 4:54 AM EDT Essential (primary) hypertension Chronic obstructive pulmonary disease, unspecified (CMS/HCC V24, CMS/HCC V28) BASIC METABOLIC PANEL Routine 06/02/2025 4:54 AM EDT Essential (primary) hypertension Chronic obstructive pulmonary disease, unspecified (CMS/HCC V24, CMS/HCC V28) documented in this encounter Results * (ABNORMAL) Basic metabolic panel (06/02/2025 4:54 AM EDT) Sodium 140 133 - 145 mmol/L LAB CHEMISTRY METHOD 06/02/2025 12:[address] [facility] Potassium 4.0 3.5 - 5.5 mmol/L LAB CHEMISTRY METHOD 06/02/2025 12:[address] [facility] Chloride 106 96 - 110 mmol/L LAB CHEMISTRY METHOD 06/02/2025 12:[address] [facility] CO2 27 21 - 32 mmol/L LAB CHEMISTRY METHOD 06/02/2025 12:[address] [facility] Anion Gap 7 3 - 11 LAB CHEMISTRY METHOD 06/02/2025 12:[address] [facility] Glucose 69(L) 70 - 100 mg/dL LAB CHEMISTRY METHOD 06/02/2025 12:[address] [facility] BUN 21 5 - 25 mg/dL LAB CHEMISTRY METHOD 06/02/2025 12:[address] [facility] Creatinine 0.86 0.50 - 1.10 mg/dL LAB CHEMISTRY METHOD 06/02/2025 12:[address] [facility] eGFR 67 >=60 mL/min/1. 73m2 LAB CHEMISTRY METHOD 06/02/2025 12:[address] [facility] Comment:Calculation based on the Chronic Kidney Disease Epidemiology Collaboration (CKD-EPI) equation refit without adjustment for race. BUN/Creatinine Ratio 24.4 LAB CHEMISTRY METHOD 06/02/2025 12:[address] [facility] Calcium 9.0 8.5 - 10.5 mg/dL LAB CHEMISTRY METHOD 06/02/2025 12:[address] [facility] Blood Venous blood specimen / Unknown Venipuncture / Unknown 06/02/2025 4:54 AM EDT 06/02/2025 10:56 AM EDT Harris Gross MD LAB BLOOD ORDERABLES Final Resul t [facility] [address] [place] [address], * (ABNORMAL) Complete blood count (06/02/2025 4:54 AM EDT) WBC 3.1(L) 4.8 - 10.8 K/mcL LAB HEMETOLOGY METHOD 06/02/2025 1:02 PM EDT [facility] RBC 2.70(L) 3.80 - 4.80 M/mcL LAB HEMETOLOGY METHOD 06/02/2025 1:02 PM EDT [facility] Hemoglobin 7.8(L) 11.5 - 16.0 g/dL LAB HEMETOLOGY [facility]02[facility]25 [facility] Hematocrit 25.7(L) 35.0 - 47.0 % LAB HEMETOLOGY METHOD 06/02[facility]2025 1[facility] MCV 95.9 79.0 - 98.0 FL LAB HEMETOLOGY METHOD 06/02/2025 1:02 PM EDT [facility] MCH 29.1 27.0 - 32.0 pcg LAB HEMETOLOGY METHOD 06/02/2025 1:[address] [facility] MCHC 30.4(L) 32.0 - 37.0 g/dL LAB HEMETOLOGY METHOD 06/02/2025 1:02 PM EDT [facility] RDW 17.8(H) 11.0 - 15.0 % LAB HEMETOLOGY METHOD 06/02/2025 1:02 PM EDT [facility] Platelets 109(L) 130 - 400 K/mcL LAB HEMETOLOGY METHOD [facility]/02[facility]2025 [facility] MPV 12.3(H) 7.0 - 11.0 FL LAB HEMETOLOGY METHOD 06/02/2025 1:02 PM EDT [facility] NRBC 0.0 <1.0 % LAB HEMETOLOGY METHOD 06/02/2025 1:02 PM EDT [facility] NRBC Absolute 0.00 <0.10 K/mcL LAB HEMETOLOGY METHOD 06/02/2025 1:02 PM EDT [facility] Blood Venous blood specimen / Unknown Venipuncture / Unknown 06/02/2025 4:54 AM EDT 06/02/2025 10:56 AM EDT us Harris Gross MD LAB BLOOD ORDERABLES Final Resul t [facility] [address] [place] [address], documented in this encounter Visit Diagnoses Diagnosis Essential (primary) hypertension Unspecified essential hypertension Chronic obstructive pulmonary disease, unspecified (CMS/HCC V24, CMS/HCC V28) documented in this encounter Care Teams Special Procedures Tech Relationship Specialty Start Date End Date Harris Gross MD [address] [place] [address] [address] [place] [address] PCP - General Geriatric Medicine 02/13/25 documented as of this encounter
--- OUTSIDE RECORDS SUMMARY | 2025-06-16 22:55 | XMS_ITS | Encounter Summary ---
Author Organization [facility] Address [address] [place] [address] Care Team Providers Care Finishing Machine Operator Name Role Phone Harris Gross MD Primary Care Provider [phone] Encounter Details Date Type Department Care Team (Late st Contact Info) Description 06/13/2025 Lab Requisition [facility] - Main Lab [address] [facility] [place] [address] Harris Gross MD [address] [place], [place] [phone] Essential (primary) hypertension; Chronic obstructive pulmonary disease, [...] Associated Diagnosis Comments COMPLETE BLOOD COUNT Routine 06/16/2025 5:01 AM EDT Essential (primary) hypertension Chronic obstructive pulmonary disease, unspecified (CMS/HCC V24, CMS/HCC V28) BASIC METABOLIC PANEL Routine 06/16/2025 5:01 AM EDT Essential (primary) hypertension Chronic obstructive pulmonary disease, unspecified (CMS/HCC V24, CMS/HCC V28) documented in this encounter Results * (ABNORMAL) Basic metabolic panel (06/16/2025 5:01 AM EDT) Sodium 138 133 - 145 mmol/L LAB CHEMISTRY METHOD 06/16/2025 10:31 AM [facility] Potassium 4.3 3.5 - 5.5 mmol/L LAB CHEMISTRY METHOD 06/16/2025 10:31 AM [facility] Chloride 104 96 - 110 mmol/L LAB CHEMISTRY METHOD 06/16/2025 10:31 AM [facility] CO2 28 21 - 32 mmol/L LAB CHEMISTRY METHOD 06/16/2025 10:31 AM [facility] Anion Gap 6 3 - 11 LAB CHEMISTRY METHOD 06/16/2025 10:31 AM [facility] Glucose 77 70 - 100 mg/dL LAB CHEMISTRY METHOD 06/16/2025 10:31 AM [facility] BUN 27(H) 5 - 25 mg/dL LAB CHEMISTRY METHOD 06/16/2025 10:31 AM [facility] Creatinine 0.89 0.50 - 1.10 mg/dL LAB CHEMISTRY METHOD 06/16/2025 10:31 AM [facility] eGFR 64 >=60 mL/min/1. 73m2 LAB CHEMISTRY METHOD 06/16/2025 10:31 AM [facility] Comment:Calculation based on the Chronic Kidney Disease Epidemiology Collaboration (CKD-EPI) equation refit without adjustment for race. BUN/Creatinine Ratio 30.3 LAB CHEMISTRY METHOD 06/16/2025 10:31 AM [facility] Calcium 9.3 8.5 - 10.5 mg/dL LAB CHEMISTRY METHOD 06/16/2025 10:31 AM [facility] Blood Venous blood specimen / Unknown Venipuncture / Unknown 06/16/2025 5:01 AM EDT 06/16/2025 9:03 AM EDT Harris Gross MD LAB BLOOD ORDERABLES Final Resul t [facility] [address] [place] [address], * (ABNORMAL) Complete blood count (06/16/2025 5:01 AM EDT) WBC 3.2(L) 4.8 - 10.8 K/mcL LAB HEMETOLOGY METHOD 06/16/2025 10:[address] [facility] RBC 2.80(L) 3.80 - 4.80 M/mcL LAB HEMETOLOGY METHOD 06/16/2025 10:[address] [facility] Hemoglobin 8.3(L) 11.5 - 16.0 g/dL LAB HEMETOLOGY METHOD 06/16/2025 10:06 AM [facility] Hematocrit 27.0(L) 35.0 - 47.0 % LAB HEMETOLOGY METHOD 06/16/2025 10:[address] [facility] MCV 95.7 79.0 - 98.0 FL LAB HEMETOLOGY METHOD 06/16/2025 10:[address] [facility] MCH 29.4 27.0 - 32.0 pcg LAB HEMETOLOGY METHOD 06/16/2025 10:06 AM [facility] MCHC 30.7(L) 32.0 - 37.0 g/dL LAB HEMETOLOGY METHOD 06/16/2025 10:[address] [facility] RDW 17.9(H) 11.0 - 15.0 % LAB HEMETOLOGY METHOD 06/16/2025 10:[address] [facility] Platelets 119(L) 130 - 400 K/mcL LAB HEMETOLOGY METHOD 06/16/2025 10:06 AM [facility] MPV 12.1(H) 7.0 - 11.0 FL LAB HEMETOLOGY METHOD 06/16/2025 10:[address] [facility] NRBC 0.0 <1.0 % LAB HEMETOLOGY METHOD 06/16/2025 10:[address] [facility] NRBC Absolute 0.00 <0.10 K/mcL LAB HEMETOLOGY METHOD 06/16/2025 10:[address] [facility] Blood Venous blood specimen / Unknown Venipuncture / Unknown 06/16/2025 5:01 AM EDT 06/16/2025 9:03 AM EDT us Harris Gross MD LAB BLOOD ORDERABLES Final Resul t [facility] [address] [place] [address], documented in this encounter Visit Diagnoses Diagnosis Essential (primary) hypertension Unspecified essential hypertension Chronic obstructive pulmonary disease, unspecified (CMS/HCC V24, CMS/HCC V28) documented in this encounter Care Teams Finishing Machine Operator Relationship Specialty Start Date End Date Harris Gross MD [address] [place] [address] [address] [place] [address] PCP - General Geriatric Medicine 02/13/25 documented as of this encounter
--- OUTSIDE RECORDS SUMMARY | 2025-06-16 22:55 | XMS_ITS | Clinical Summary ---
Author Organization [facility] Address [address] [place] [phone] Phone Care Team Providers Care Plating And Point Assembly Supervisor Name Role Phone Nick Gomez Primary Care [...] file Insurance MEDICARE PART A & B [facility] MEDICARE SUPPLEMENT MEDICARE PART A & B [employer] MEDICARE SUPPLEMENT MEDICARE PART A & B [employer] MEDICARE SUPPLEMENT MEDICARE PART A & B [facility] MEDICARE SUPPLEMENT MEDICARE PART A & B [facility] MEDICARE SUPPLEMENT MEDICARE PART A & B [facility] MEDICARE SUPPLEMENT MEDICARE PART A & B [facility] MEDICARE SUPPLEMENT MEDICARE PART A & B Member Subscriber Plan / Payer (Ef fective 2005-Present) Name:Bella Henley Member ID:[id number] Relation to Subscriber:Self Name:Bella Henley Subscriber ID:[id number] Payer ID:[id number] Group ID:Not on file Type:Medicare Address: [employer] [address] [place] [id number] [facility] MEDICARE SUPPLEMENT MEDICARE PART A & B [facility] SUPPLE[facility] Care Teams Plating And Point Assembly Supervisor Relationship Specialty Start Date End Date Nick Gomez PA [address] [place] [id number] PCP - General Physician Automation Test Engineer 05/14/23 Additional Source Comments The information contained in this document represents components of the legal health record. It is not the complete legal health record.[facility]
--- OUTSIDE RECORDS SUMMARY | 2025-06-16 22:55 | XMS_ITS | Encounter Summary ---
Author Organization [facility] Address [address] [place] [address] Care Team Providers Care Plant Taxonomist Name Role Phone Harris Gross MD Primary Care Provider [phone] Encounter Details Date Type Department Care Team (Late st Contact Info) Description 02/19/[address] [facility] - Main Lab [address] [facility] [place] [address] Harris Gross MD [address] [place], [place] [phone] Other terminologist (current) drug therapy Social History Tobacco Use [...] FOLATE Routine 02/19/2025 5:09 AM EDT Other terminologist (current) drug therapy documented in this encounter Results * (ABNORMAL) Folate (02/19/2025 5:09 AM EDT) Folate >20.0(H) 2.8 - 17.0 ng/ml LAB CHEMISTRY METHOD 02/19/2025 8:26 AM EDT [facility] Blood Venous blood specimen / Unknown Venipuncture / Unknown 02/19/2025 5:09 AM EDT 02/19/2025 6:45 AM EDT Harris Gross MD LAB BLOOD ORDERABLES Final Resul t [facility] [address] [place] [address], documented in this encounter Visit Diagnoses Diagnosis Other shelter (current) drug therapy documented in this encounter Care Teams Plant Taxonomist Relationship Specialty Start Date End Date Harris Gross MD [address] [place] [address] [address] [place] [address] PCP - General Geriatric Medicine 02/13/25 documented as of this encounter
[2025-06-16 22:57] LABS: Alanine Aminotransferase 14 U/L (0-31); Albumin Level 4.2 g/dL (3.5-5.0); Alkaline Phosphatase 83 U/L (39-117); Anion Gap 13 (12-20); Aspartate Amino Transferase 26 U/L (5-31); Blood Urea Nitrogen 32 mg/dL (9-16); Calcium 9.5 mg/dL (8.4-10.2); Carbon Dioxide 24 mmol/L (22-29); Chloride 107 mmol/L (96-108); Creatinine Clr Calc Pharmacy 41.9; Estimated Glomerular Filt Rate 52; Potassium 4.2 mmol/L (3.3-5.1); Sodium 140 mmol/L (135-145); Total Protein 6.8 g/dL (6.5-8.0)
[2025-06-16 23:04] LABS: Platelet Count 127 X10*3/uL (160-400); White Blood Count 3.7 X10*3/uL (4.8-10.8)
--- NOTE | 2025-06-16 23:20 | ED.SYNCOPE ---
HPI - Syncope General Chief Complaint: Syncope Stated Complaint: near syncopal Time Seen by Provider: 06/16/25 22:06 History of Present Illness HPI narrative: Patient is an 84-year-old female felt faint upon standing up. Fell onto the right side. Positive head injury there is no loss of consciousness there is no nausea no vomiting. Question pain to the right hip area. Patient is on clopidogrel. No fever no chills. No change in vision. No nausea no vomiting. No focal weakness. No pain prior. No difficulty moving her hips. Normally walks with a walker or cane. Patient has just got out of rehab today. Patient had frequent falls prior. Was in the hospital then went to the rehab facility. Denies any chest pain. Related Data Home Medications ?Medication ?Instructions ?Recorded ?Confirmed alprazolam 0.25 mg tablet 0.125 mg PO BID PRN Anxiety 03/28/24 05/16/25 fluticasone propionate 115 2 puff inhalation BID 01/14/25 05/16/25 mcg-salmeterol 21 mcg/actuation HFA inhaler (Advair HFA) acetaminophen 325 mg tablet 325 mg PO Q4H PRN Pain 02/10/25 05/16/25 citalopram 20 mg tablet (Celexa) 20 mg PO BID 05/14/25 05/16/25 fluticasone propionate 50 1 spray intranasal DAILY PRN 05/16/25 05/16/25 mcg/actuation nasal Allergy Symptoms spray,suspension mirabegron 50 mg tablet,extended 50 mg PO BEDTIME 05/16/25 05/16/25 release 24 hr (Myrbetriq) polyethylene glycol 3350 17 17 g PO DAILY PRN Constipation 05/16/25 05/16/25 gram/dose oral powder (Miralax) Previous Rx's ?Medication ?Instructions ?Recorded albuterol sulfate 90 mcg/actuation 2 puff inhalation Q4-6H PRN 09/06/24 aerosol inhaler shortness of breath or wheezing #1 ea cholecalciferol (vitamin D3) 50 50 mcg PO DAILY #90 tabs 12/09/24 mcg (2,000 unit) tablet (Vitamin D3) clopidogrel 75 mg tablet 75 mg PO DAILY #90 tabs 03/20/25 pantoprazole 40 mg tablet,delayed 40 mg PO DAILY@0630 #90 tabs 04/13/25 release (Protonix) Allergies Allergy/AdvReac Type Severity Reaction Status Date / Time buspirone Allergy Intermediate Rash Verified 06/16/25 22:06 Sulfa (Sulfonamide Allergy Intermediate RASH Verified 06/16/25 22:06 Antibiotics) cefuroxime Allergy Unknown Unknown Verified 06/16/25 22:06 garlic (GARLIC) Allergy Unknown PER H&P Verified 06/16/25 22:06 metronidazole (From FLAGYL) Allergy Unknown OCULAR Verified 06/16/25 22:06 MIGRAINES penicillamine Allergy Unknown Unknown Verified 06/16/25 22:06 ciprofloxacin AdvReac Intermediate neuropathic Verified 06/16/25 22:06 pain lisinopril AdvReac Intermediate Cough Verified 06/16/25 22:06 loratadine (From Claritin) AdvReac Mild Fatigued Verified 06/16/25 22:06 nitrofurantoin AdvReac Mild GI side Verified 06/16/25 22:06 effects cefuroxime Allergy Intermediate wheezy Uncoded 06/16/25 22:06 cough/itch flagyl Allergy Unknown Unknown Uncoded 06/16/25 22:06 From KEFLEX Allergy Unknown RASH Uncoded 06/16/25 22:06 Metoprolol Tartrate Allergy Unknown Unknown Uncoded 06/16/25 22:06 Sulfacet-R Allergy Unknown Unknown Uncoded 06/16/25 22:06 Review of Systems Review of Systems: Positive syncope Yes all other systems are reviewed and are negative [facility] Past Medical History Attestation statement: The following information was validated with the patient. Medical History Dizziness Nonspecific low blood pressure reading Annual wellness visit Acute diverticulitis LLQ abdominal pain Contusion of right lower leg Otitis media Cough Bronchitis Pelvic pain Chronic cough Elevated IgE level Status post fall Hip pain Post-menopausal URI (upper respiratory infection) Sensation of pressure in bladder area Chest pain Elevated blood sugar Oral candidiasis GERD (gastroesophageal reflux disease) Pulmonary nodule HTN (hypertension) Heart palpitations Constipation Breast cancer screening Breast pain, left Elevated vitamin B12 level Neck muscle spasm Strain of neck muscle Low back pain Pubic ramus fracture Sore throat Skin tear of upper arm without complication Head injury, acute, without loss of consciousness Fall Medication noncompliance due to cognitive impairment RLQ abdominal pain Sinusitis Flu syndrome Precordial chest pain Atypical chest pain Cold intolerance Former smoker Abnormal lung sounds Fever Bilateral calf pain Nausea Left lower quadrant abdominal pain Dysuria Fatigue Lower extremity weakness Aortic stenosis Obstipation Dark stools Lower abdominal pain Gastroenteritis Neck pain on right side Back pain Rhinitis Elevated BP without diagnosis of hypertension Non-rheumatic aortic stenosis Diverticulitis GERD (gastroesophageal reflux disease) Cat scratch Cat bite Epigastric discomfort Diarrhea Neuropathy Arthritis GERD (gastroesophageal reflux disease) HTN (hypertension) Irritable bowel Heart murmur Surgical History S/P AVR S/P TAVR (transcatheter aortic valve replacement) Hx of esophagogastroduodenoscopy Hx of colonoscopy History of tonsillectomy History of appendectomy Family History Family History Father No problems noted. Mother No problems noted. Social History Social History Household Members: Children Housing: House Are you a primary career development facilitator to a significant other at home: No Do you presently have visiting nurse or other home services: No Alcohol intake: never Comment: Pt still ambulate on her own even though alarms are on Patient Tobacco Use Status: Former Tobacco user Tobacco use type: Cigarette Years Smoked: 55 e-Cigarette/Vaping Use: Never Used Second Hand Smoke Exposure: Yes Advance Directives: Yes Advance Directives on File: Yes Advance Directives Date on File: 09/21/23 service: No Current occupational status: retired Cognitive needs: No Hearing needs: No Vision needs: Yes (glasses) Physical Exam Exam: Exam: Appearance: Alert. Oriented X3. No acute distress. Eyes: Pupils equal, round and reactive to light. ENT: Pharynx normal. Neck: Normal inspection. Neck supple. No lymph nodes noted. No crepitus CVS: Normal heart rate and rhythm. Pulses normal. Normal S1 and S2 Respiratory: No respiratory distress. Breath sounds normal. No Wheezing. No rales Abdomen: Soft and nontender. No rigidity. No distention. good BS x4 Skin: Skin warm and dry. Normal skin color. Normal skin turgor. Extremities: No lower extremity edema. Neurovascular intact to all extremities. No Lacerations. No Rash Neuro: Oriented X 3. No motor deficit. No sensory deficit. Moving all extermities. No slurred speech Vital Signs: Vital Signs: Last Vital Signs Pulse 89 06/17/25 00:47 Resp 16 06/16/25 22:13 BP 150/79 H 06/17/25 00:47 Pulse Ox 94 06/16/25 22:13 O2 Del Method Room Air 06/16/25 22:13 BMI result Body Mass Index 31.9 Medications Administered Discontinued Medications Generic Name Dose Route Start Last Admin Trade Name Freq PRN Reason Stop Dose Admin Sodium Chloride 500 mls @ 999 mls/hr 06/16/25 23:15 06/17/25 00:32 Ns IV 06/16/25 23:45 999 mls/hr .Q31M URSULA Administration Medical Decision Making Medical Decision Making [facility] Narrative: Patient 84 years old history of aortic stenosis status post TAVR currently had multiple episodes of strokes in the past. Presented on Plavix patient had a near syncopal episode hit her head. My interpretation of patient's EKG showed a sinus rhythm heart rate is 80 [place] QRS QTC normal no acute ST segment elevation no changes from previous. Patient is CT scan head by my interpretation is grossly negative for any acute evidence of bleeding. No fracture. Her hemoglobin is 9.1 this is approximately baseline. Patient denies noticing any blood in his stool. Electrolytes are consistent with dehydration BUN 32 creatinine is 1. This is slightly higher than baseline. Patient's troponin is 14. Slightly elevated than baseline. Urine not infected. Blood pressure is normal heart rate is normal will discuss with hospitalist team for admission Differential Diagnosis Differential Diagnoses: The differential diagnosis associated with the presentation includes Dehydration, near syncope, head injury, intracranial bleed, fracture Admission/Observation Consideration of admission/observation: Escalation of care including admission/observation considered Consult Healthcare Provider Management of the patient was discussed with: Hospitalist Lab Data [facility] Lab Attestation statement: I reviewed the patient's lab results. 06/16/25 22:31 06/16/25 22:31 Labs: Lab Results 06/16/25 06/17/25 Range/Units 22:31 00:05 WBC 3.7 L (4.8-10.8) X10*3/uL RBC 3.10 L (4.20-5.50) X10*6/uL Hgb 9.1 L (12.0-16.0) g/dl Hct 29.1 L D (37.0-47.0) % MCV 93.9 (80.0-98.0) fL MCH 29.4 (27.0-33.0) pg MCHC 31.3 (31.0-35.0) g/dl RDW 18.0 H (11.0-16.0) % Plt Count 127 L (160-400) X10*3/uL MPV 12.1 (9.4-12.3) fL Immature Gran % (Auto) 0.5 H (0.0-0.4) % Neut % (Auto) 66.2 (45-73) % Lymph % (Auto) 18.8 L (20-40) % [place] % (Auto) 11.3 H (2-11) % Eos % (Auto) 2.4 (0-4) % Baso % (Auto) 0.8 (0-2) % Lymph # (Auto) 0.7 L (1.2-4.9) X10*3/uL [place] # (Auto) 0.4 (0.1-1.2) X10*3/uL Eos # (Auto) 0.1 (0.0-0.4) X10*3/uL Baso # (Auto) 0.0 (0.0-0.2) X10*3/uL Abs Immat Gran (auto) 0.02 (0.00-0.03) X10*3/uL Absolute Neuts (auto) 2.5 (2.0-8.3) x10*3/uL Absolute Nucleated RBC 0.000 (0.0-0.012) X10*3/uL Nucleated RBC % (auto) 0.0 (0.0-0.2) /100WBC Smear Tech's Comments VERIFIED Sodium 140 (135-145) mmol/L Potassium 4.2 (3.3-5.1) mmol/L Chloride 107 (96-108) mmol/L Carbon Dioxide 24 (22-29) mmol/L Anion Gap 13 (12-20) BUN 32 H (9-16) mg/dL Creatinine 1.01 (0.5-1.4) mg/dL Estim Creat Clear Calc 41.9 Estimated GFR 52 Random Glucose 96 (60-115) mg/dL Calcium 9.5 (8.4-10.2) mg/dL Total Bilirubin 0.3 (0.0-1.0) mg/dL AST 26 (5-31) U/L ALT 14 (0-31) U/L Alkaline Phosphatase 83 (39-117) U/L Troponin I High Sens 14.0 D (<3.5-17.0) ng/L Total Protein 6.8 (6.5-8.0) g/dL Albumin 4.2 (3.5-5.0) g/dL Urine Color Yellow Urine Appearance Clear Urine pH 5.5 (5.0-9.0) Ur Specific [place] 1.020 (1.005-1.025) Urine Protein Negative (Neg-Trace) mg/dL Urine Glucose (UA) Negative (Negative) mg/dL Urine Ketones Negative (Negative) mg/dL Urine Blood Negative (Negative) Urine Nitrite Negative (Negative) Ur Leukocyte Esterase Moderate (2+) H (Negative) Urine RBC 0-2 (0-2) /HPF Urine WBC 0-5 (0-5) /HPF Ur Squamous Epith Cells 0-2 (0-2) /HPF Urine Bacteria None Seen (None Seen) Hyaline Casts 0-2 (0-2) /LPF Independent Interpretation I performed an independent interpretation of an: EKG (Sinus heart rate is 80 [place] QRS QTC normal no acute ST segment elevation) and CT Scan (CT head grossly negative) Radiology Impression Discussion of test interpretation with radiology: I have reviewed the radiologist's reading. Independent Historian Clinical information obtained from an independent historian. History obtained from or confirmed by: Other (Discussed with patient's son) External Record Review External record reviewed: Inpatient record ( inpatient hospitalist record reviewed) and Outpatient record (Previous cardiology record reviewed) Chronic Conditions Patient?s care impacted by: Hypertension Aortic stenosis status post TAVR history of CVA Social Determinants Patient?s care significantly limited by Social Determinants of Health including: Problems related to primary support group Discharge Plan Discharge Clinical Impression: Head injury, Near syncope Patient Disposition: Admitted As Inpatient Print Language: Icelandic
[2025-06-16 23:38] LABS: Troponin-I High Sensitivity 14.0 ng/L (<3.5-17.0)
[2025-06-17] VITALS (11 sets, daily range): BP systolic 123–197; BP diastolic 67–96; PULSE 74–105; RESP 13–18; TEMP 36.4–36.9; O2SAT 93–97; BMI 33.2
[2025-06-17 00:22] LABS: Appearance Urine Clear; Glucose Urine UA Negative (Negative); PH 5.5 (5.0-9.0); Specific Gravity - Urine 1.020 (1.005-1.025); UMIC TRIGGER UACC YES
[2025-06-17 00:44] LABS: UACC Culture Trigger YES
[2025-06-17 02:07] LABS: Troponin-I High Sensitivity 20.2 ng/L (<3.5-17.0)
--- NOTE | 2025-06-17 02:43 | PM.IMHP ---
History of Present Illness Date of Service: 06/17/25 Attending physician on admission: Bill Matias Chief Complaint: Lightheadedness Bella Henley is a delightful 84 years old woman with past medical history significant for severe status post TAVR, CVA, essential hypertension, hyperlipidemia and COPD was brought to the ED via EMS after she had an episode of lightheadedness upon standing up today resulting in a fall and head trauma. She denied loss of consciousness. She reported some palpitation but denied chest pain or shortness on breath. Sometimes she feel like she has some trouble talking. She denied any new focal weakness or numbness. She did not report any acute gastrointestinal symptoms but has been experiencing gas and taking simethicone for it. She said that she was recently discharged from rehab. She has been rehab for the last 5 weeks. She is not on water pills. In the ED, she was found to have stable vital signs. Orthostatic vital signs not available. Last blood pressure is 182/77. Blood workup remarkable for pancytopenia which is around baseline. Abdominal pelvis CT scan without contrast showed no acute findings; there is unchanged infrarenal abdominal aortic aneurysm. Head and C-spine CT scan showed no acute findings. ECG showed normal sinus rhythm with 1st AV block and no acute ischemic changes. ED tx: NS 500 mL bolus. Review of Systems Review of Systems: All 12 systems were reviewed and normal except as noted in HPI. [facility] Medical History Dizziness Nonspecific low blood pressure reading Annual wellness visit Acute diverticulitis LLQ abdominal pain Contusion of right lower leg Otitis media Cough Bronchitis Pelvic pain Chronic cough Elevated IgE level Status post fall Hip pain Post-menopausal URI (upper respiratory infection) Sensation of pressure in bladder area Chest pain Elevated blood sugar Oral candidiasis GERD (gastroesophageal reflux disease) Pulmonary nodule HTN (hypertension) Heart palpitations Constipation Breast cancer screening Breast pain, left Elevated vitamin B12 level Neck muscle spasm Strain of neck muscle Low back pain Pubic ramus fracture Sore throat Skin tear of upper arm without complication Head injury, acute, without loss of consciousness Fall Medication noncompliance due to cognitive impairment RLQ abdominal pain Sinusitis Flu syndrome Precordial chest pain Atypical chest pain Cold intolerance Former smoker Abnormal lung sounds Fever Bilateral calf pain Nausea Left lower quadrant abdominal pain Dysuria Fatigue Lower extremity weakness Aortic stenosis Obstipation Dark stools Lower abdominal pain Gastroenteritis Neck pain on right side Back pain Rhinitis Elevated BP without diagnosis of hypertension Non-rheumatic aortic stenosis Diverticulitis GERD (gastroesophageal reflux disease) Cat scratch Cat bite Epigastric discomfort Diarrhea Neuropathy Arthritis GERD (gastroesophageal reflux disease) HTN (hypertension) Irritable bowel Heart murmur Family History Father No problems noted. Mother No problems noted. Surgical History S/P AVR S/P TAVR (transcatheter aortic valve replacement) Hx of esophagogastroduodenoscopy Hx of colonoscopy History of tonsillectomy History of appendectomy Social History Household Members: Children Housing: House Are you a primary nonfarm animal caretaker to a significant other at home: No Do you presently have visiting nurse or other home services: No Alcohol intake: never Comment: Pt still ambulate on her own even though alarms are on Patient Tobacco Use Status: Former Tobacco user Tobacco use type: Cigarette Years Smoked: 55 e-Cigarette/Vaping Use: Never Used Second Hand Smoke Exposure: Yes Advance Directives: Yes Advance Directives on File: Yes Advance Directives Date on File: 09/21/23 service: No Current occupational status: retired Cognitive needs: No Hearing needs: No Vision needs: Yes (glasses) Meds Allergies Allergy/AdvReac Type Severity Reaction Status Date / Time buspirone Allergy Intermediate Rash Verified 06/16/25 22:06 Sulfa (Sulfonamide Allergy Intermediate RASH Verified 06/16/25 22:06 Antibiotics) cefuroxime Allergy Unknown Unknown Verified 06/16/25 22:06 garlic (GARLIC) Allergy Unknown PER H&P Verified 06/16/25 22:06 metronidazole (From FLAGYL) Allergy Unknown OCULAR Verified 06/16/25 22:06 MIGRAINES penicillamine Allergy Unknown Unknown Verified 06/16/25 22:06 ciprofloxacin AdvReac Intermediate neuropathic Verified 06/16/25 22:06 pain lisinopril AdvReac Intermediate Cough Verified 06/16/25 22:06 loratadine (From Claritin) AdvReac Mild Fatigued Verified 06/16/25 22:06 nitrofurantoin AdvReac Mild GI side Verified 06/16/25 22:06 effects cefuroxime Allergy Intermediate wheezy Uncoded 06/16/25 22:06 cough/itch flagyl Allergy Unknown Unknown Uncoded 06/16/25 22:06 From KEFLEX Allergy Unknown RASH Uncoded 06/16/25 22:06 Metoprolol Tartrate Allergy Unknown Unknown Uncoded 06/16/25 22:06 Sulfacet-R Allergy Unknown Unknown Uncoded 06/16/25 22:06 Active Medications: Current Medications Acetaminophen (Acetaminophen 325 Mg Tablet) 650 mg PO Q6H PRN PRN Reason: Pain, Mild 1-3,fever,headache Calcium Carbonate (Calcium Carbonate 750 Mg Tab.Chew) 750 mg PO Q4H PRN PRN Reason: Heartburn Magnesium Hydroxide (Milk Of Magnesia 30 Ml Oral.Susp) 30 ml PO DAILY PRN PRN Reason: Constipation Melatonin (Melatonin 3 Mg Tablet) 6 mg PO BEDTIME PRN PRN Reason: Insomnia Sodium Chloride (0.9 % Sodium Chloride Flush 3 Ml Syringe) 3 [facility] Medications ?Medication ?Instructions ?Recorded ?Confirmed ?Last Taken ?Type alprazolam 0.25 mg tablet 0.125 mg PO BID PRN Anxiety 03/28/24 05/16/25 05/16/25 History fluticasone propionate 115 2 puff inhalation BID 01/14/25 05/16/25 05/16/25 History mcg-salmeterol 21 mcg/actuation HFA inhaler (Advair HFA) acetaminophen 325 mg tablet 325 mg PO Q4H PRN Pain 02/10/25 05/16/25 Unknown History citalopram 20 mg tablet (Celexa) 20 mg PO BID 05/14/25 05/16/25 05/16/25 History fluticasone propionate 50 1 spray intranasal DAILY PRN 05/16/25 05/16/25 Unknown History mcg/actuation nasal Allergy Symptoms spray,suspension mirabegron 50 mg tablet,extended 50 mg PO BEDTIME 05/16/25 05/16/25 05/16/25 History release 24 hr (Myrbetriq) polyethylene glycol 3350 17 17 g PO DAILY PRN Constipation 05/16/25 05/16/25 05/16/25 History gram/dose oral powder (Miralax) Physical Exam Vital Signs and Narrative: Vital Signs: Last Vital Signs Pulse 89 10/14/25 00:47 Resp 16 06/16/25 22: BP 150/79 H 06/17/25 00:47 Pulse Ox 94 06/16/25 22:13 O2 Del Method Room Air 06/16/25 22:13 BMI result Body Mass Index 31.9 General: Alert, oriented, in no acute distress. Cooperative. Pleasant. Afebrile. HEENT: Head normocephalic, atraumatic. PER, EOMI. Sclerae anicteric, conjunctiva clear. Oropharynx without erythema or exudate. Mucous membranes moist. Neck: Supple, no lymphadenopathy, or JVD. Heart: RRR, (+) murmurs, rubs or gallops. Lungs: Clear to auscultation bilaterally. No wheezes, rales, or rhonchi. Normal respiratory effort. Abdomen: Soft, non tenderness, nondistended, normoactive bowel sounds. No hepatosplenomegaly, masses, rebound or guarding. Extremities: No calf tenderness bilaterally, no swelling Musculoskeletal: Full range of motion. No joint swelling, deformity, or tenderness. Decreased muscle tone and strength. Skin: Warm/Dry. No pallor. No jaundice. Neurologic: Alert & oriented x4. Moving all extremities spontaneously. Normal speech. Psychological: Normal mood and affect. Thought process coherent. Results Labs 06/16/25 22:31 06/16/25 22:31 Labs: Laboratory Results - last 24 hr 06/16/25 06/17/25 06/17/25 22: 00:05 01:41 MCV 93.9 MCH 29.4 MCHC 31.3 RDW 18.0 H Plt Count 127 L MPV 12.1 Immature Gran % (Auto) 0.5 H Neut % (Auto) 66.2 Lymph % (Auto) 18.[address] [place] % (Auto) 11.3 H Eos % (Auto) 2.4 Baso % (Auto) 0.8 Lymph # (Auto) 0.[address] [place] # (Auto) 0.4 Eos # (Auto) 0.1 Baso # (Auto) 0.0 Abs Immat Gran (auto) 0.02 Absolute Neuts (auto) 2.5 Absolute Nucleated RBC 0.000 Nucleated RBC % (auto) 0.0 Smear Tech's Comments VERIFIED Anion Gap 13 Estim Creat Clear Calc 41.9 Estimated GFR 52 Random Glucose 96 Calcium 9.5 Total Bilirubin 0.3 AST 26 ALT 14 Alkaline Phosphatase 83 Troponin I High Sens 14.0 D 20.2 H Total Protein 6.8 Albumin 4.2 Urine Color Yellow Urine Appearance Clear Urine pH 5.5 Ur Specific [place] 1.020 Urine Protein Negative Urine Glucose (UA) Negative Urine Ketones Negative Urine Blood Negative Urine Nitrite Negative Ur Leukocyte Esterase Moderate (2+) H Urine RBC 0-2 Urine WBC 0-5 Ur Squamous Epith Cells 0-2 Urine Bacteria None Seen Hyaline Casts 0-2 Assessment and Plan (1) Near syncope: Status: Acute (2) Elevated troponin: Status: Acute Plan Bella Henley is a 84 y/o woman with PMHxy significant for severe status post TAVR who presents with: Near syncope. Observation. Telemetry. Orthostatics. Obtain TTE. Cardiology consult. Elevated troponin, likely related to above. Denied chest pain or shortness on breath. Continue to monitor. Speech difficulty, she thinks this is new. Brain MRI. Speech evaluation. Chronic pancytopenia. Cause? Hx of vitamin B12 deficiency. Check vitamin B12, folate, TSH, retic count, LDH, ELLY, urine Hgb, haptoglobulin and iron studies. To consider Hematology follow as an outpatient. Essential hypertension. Continue home meds. Mood disorder. Continue home meds. med rec pending Code status: Full. DVT prophylaxis: SCDs. This documentation was generated using dictation software; minor spreading or proofsheet corrector errors may be present. Quality Stroke Does the patient have a stroke diagnosis?: No VTE Prior VTE?: No VTE Risk Level:: Medical - moderate - high VTE Device Contraindication: N/A - Device Ordered VTE Drug Contraindication: Treatment Not Indicated
--- NOTE | 2025-06-17 04:11 | PC.NURSE ---
pt resting in stretcher, advised we would be placing a purewick on for pt, pt medicated per MAR, phlebotomy at bedside.
[2025-06-17 04:19] LABS: MANUAL DIFF FLAG NO
[2025-06-17 04:27] LABS: Reticulocytes Absolute 0.079 X10*6/uL (0.026-0.095)
[2025-06-17 04:32] LABS: Hematocrit 28.0 % (37.0-47.0); Hemoglobin 8.6 g/dl (12.0-16.0); Imm Gran Abs Auto 0.05 X10*3/uL (0.00-0.03); Imm Gran Pct Auto 1.5 % (0.0-0.4); Lymphocytes Absolute Auto 0.6 X10*3/uL (1.2-4.9); Mean Corpuscular HGB Conc 30.7 g/dl (31.0-35.0); Mean Corpuscular Hemoglobin 29.3 pg (27.0-33.0); Mean Corpuscular Volume 95.2 fL (80.0-98.0); NRBC Abs Auto 0.000 X10*3/uL (0.0-0.012); NRBC Pct Auto 0.0 /100WBC (0.0-0.2); Platelet Count 124 X10*3/uL (160-400); Red Blood Count 2.94 X10*6/uL (4.20-5.50); White Blood Count 3.3 X10*3/uL (4.8-10.8)
[2025-06-17 04:44] LABS: Troponin-I High Sensitivity 22.3 ng/L (<3.5-17.0)
[2025-06-17 04:48] LABS: Anion Gap 12 (12-20); Blood Urea Nitrogen 27 mg/dL (9-16); Calcium 9.1 mg/dL (8.4-10.2); Carbon Dioxide 25 mmol/L (22-29); Chloride 107 mmol/L (96-108); Creatinine Clr Calc Pharmacy 53.0; Estimated Glomerular Filt Rate > 60; Iron 34 mcg/dL (30-160); Percent Iron Saturation 13 % (15-50); Potassium 3.9 mmol/L (3.3-5.1); Sodium 140 mmol/L (135-145); Total Iron Binding Capacity 260 mcg/dL (228-428); Unsaturated Iron Binding 226 ug/dL
[2025-06-17 05:03] LABS: Thyroid Stimulating Hormone 1.50 uIU/mL (0.32-4.0)
--- NOTE | 2025-06-17 05:11 | PC.NURSE ---
pt son (health care proxy) Hi called, this RN spoke with Hi. explained pt will be staying overnight to further evaluate these syncope episodes. Hi states pt just got home from [facility] (for falls) at 1 pm 06/16 and by 8 pm she fell again. he will c/b later today or an update. can be reached at [phone]
[2025-06-17 05:12] LABS: Folate 13.5 ng/mL (> or = 4.0); Vitamin B12 273 pg/mL (200-900)
--- NOTE | 2025-06-17 07:00 | CA_ITS ---
Transthoracic Echocardiogram Patient (Last, First, Middle): Bella Henley G Gender: Female Date of : 1940 Age: 84 Procedure Date: 06/17/2025 Procedure Type: Transthoracic Echocardiogram Location: ER Height: 167.64 cm Weight: 73.94 kg BSA: 1.83 m2 Heart Rate: 79 bpm BP: 182 / 77 mmHg Technical Architect: Referring MD: Bill Matias MD Symptoms: s/p TAVR, near syncope Study Quality: Fair ECG Rhythm: Sinus Conclusions: - Normal left ventricular size and systolic function. There is moderately increased left ventricular wall thickness. The visually estimated ejection fraction is between 60-65%. - Normal right ventricular cavity size and systolic function. - A bioprosthetic aortic valve is present. There is no aortic valve stenosis. The mean gradient is 7 mmHg. There is no aortic valve regurgitation. - The mitral valve appears normal. There is mild mitral valve regurgitation. There is no mitral valve stenosis. Mild subvalvular KLAUDIA noted. Findings Left Ventricle Normal left ventricular size and systolic function. There is moderately increased left ventricular wall thickness. The visually estimated ejection fraction is between 60-65%. There is no evidence of regional wall motion abnormalities. Diastolic function is indeterminate on the basis of available data. Right Ventricle Normal right ventricular cavity size and systolic function. Atria The left atrium is normal in size. The right atrium is normal in size. Aortic Valve A bioprosthetic aortic valve is present. There is no aortic valve stenosis. The mean gradient is 7 mmHg. There is no aortic valve regurgitation. Mitral Valve The mitral valve appears normal. There is mild mitral valve regurgitation. There is no mitral valve stenosis. Mild subvalvular KLAUDIA noted. Pulmonic Valve The pulmonic valve is likely normal. Tricuspid Valve Normal tricuspid valve structure. There is no tricuspid valve regurgitation. Tricuspid regurgitation envelope is inadequate for calculation of right ventricular systolic pressure. Normal right atrial pressure. Great Vessels All visible segments of the aorta are normal in size. Venous The inferior vena cava is normal in size and collapses greater than 50% with inspiration. Pericardium/Pleural There is no evidence of pericardial effusion. Prior Study Comparison Changes noted compared to prior study dated: 07/29/2024. Mild subvalvular KLAUDIA noted. Measurements 2D Linear Measurements IVSd: 1.24 0.6-0.9/0.6-1.0 cm LVIDd: 3.17 3.9-5.3/4.2-5.9 cm LVIDd Index: 1.73 2.4-3.2/2.2-3.1 cm/m2 LVIDs: 2.03 2.0-3.6 cm LVPWd: 1.20 0.7-1.1 cm LA Diam: 3.80 2.7-3.8/3.0-4.0 cm LAIDs Index: 2.08 1.5-2.3 cm/m2 LV Mass: 150.49 67-162/88-224 g LV Mass Index: 82.24 43-95/49-115 g/m2 LVOT Diam: 2.00 3.0+(-)1.3 cm 2D Systolic Function EF 4C: 62.70 >55% EF 2C: 62.90 >55% EF BiP: 62.40 >55% Mitral Valve MV VTI: 0.39 MV Pk Anthony: 1.57 MV Mn Anthony: 0.90 MV Pk Grad: 10.00 MV Mn Grad: 4.00 MV Pk E: 0.92 MV PK A: 1.47 MV Decel Time: 143.00 E/A: 0.60 E'Lateral: 7.18 E'Medial: 5.55 E/E' Med: 16.60 E/E' Lat: 12.80 PHT: 42.00 MVA PHT: 5.24 MVA Continuity: 2.69 Decel Andrew: 6.45 Aortic Valve AoV Pk Anthony: 1.80 AoV Mn Anthony: 1.24 AoV VTI: 0.41 AoV Pk Grad: 13.00 Aov Mn Grad: 7.00 LULA Cont.VTI: 2.52 LVOT LVOT Pk Anthony: 1.38 LVOT Mn Anthony: 1.03 LVOT VTI: 0.33 LVOT Pk Grad: 8.00 LVOT Mn Grad: 5.00 LVOT Diam: 2.00 LVOT Area: 3.14 Diastolic Function MV Pk E: 0.92 MV Pk A: 1.47 E/A: 0.60 E'Medial: 5.55 E/E' Med: 16.60 E' Laterial: 7.18 E/E' Lat: 12.80 Right Ventricle TAPSE (mm): 31.30 TVS' Anthony: 11.30 Tricuspid Valve TR Pk Anthony: 2.38 TR Pk Grad: 23.00 Great Vessels Aorta Sinus of Valsalva: 2.20 2.0-3.5 cm Ao Asc: 3.20 2.1-3.4 cm Pulmonary Valve PV Pk Anthony: 0.92 Peak PV Grad: 3.00 Updated in Other Vendor System with Status of Final Guillaume Callahan MD electronically signed on 06/18/2025 8:08:24 PM with status of Final
--- NOTE | 2025-06-17 09:45 | PC.NURSE ---
compounding pharmacy technician at bedside.
--- NOTE | 2025-06-17 10:07 | PC.NURSE ---
pt's rings and watch in den ture cup with belongings.
--- NOTE | 2025-06-17 10:14 | PC.NURSE ---
MRI screen faxed, placed in chart
--- NOTE | 2025-06-17 10:35 | PHA.MEDREC ---
Addendum entered by Mykel Zhou RPh 06/17/25 11:30: Reviewed by [facility]. Addendum entered by Monica Morillo 06/17/25 10:38: Patient confirmed Alprazolam 0.125 mg BID (1/2 0.25mg), However claims has Alprazolam 0.25 mg daily. Original Note: Pharmacy Consult ? Medication Reconciliation Pharmacy has completed the medication reconciliation. Patient was able to confirm all of her medications. Patient states she is no longer taking Albuterol HFA inhaler, Bupropion 75 mg( Provider told her to stop taking yesterday). Patient last had her medications yesterday morning.
--- NOTE | 2025-06-17 10:36 | PC.NURSE ---
Pt gave permission to give update to son, Hi. Son reports that pt has had difficulty word finding for a couple of months, but has not really been evaluated for it. Her memory has been impaired since her strokes in 2021.
[2025-06-17] MEDS: 0.9 % Sodium Chloride Flush 3 ML SYRINGE IVFLUSH ×2 (11:20→17:52)
--- NOTE | 2025-06-17 11:21 | PM.CNCAR ---
History of Present Illness History of Present Illness Date of Service: 06/17/25 Requesting physician: Sarah Ann Chief complaint: Fall. Narrative: [age] year female presenting with fall. She has known history of severe aortic valve stenosis status post transcatheter aortic valve replacement complicated with stroke which she recovered from. She does have memory issues and probably has some underlying dementia. She is saying that she was sitting in her kitchen and tried to stand up and became very dizzy and her legs gave way and she fell to the ground. This has happened to her before too. Clinical story appears to be related to orthostasis. She previously had infection leading to orthostasis. She is denying any urinary complaints currently. Not coughing up any phlegm or any other complaints currently. Blood pressure was elevated on admission but overall is improving and current blood pressure is 145/83. [facility] Past Medical History Medical History Dizziness Nonspecific low blood pressure reading Annual wellness visit Acute diverticulitis LLQ abdominal pain Contusion of right lower leg Otitis media Cough Bronchitis Pelvic pain Chronic cough Elevated IgE level Status post fall Hip pain Post-menopausal URI (upper respiratory infection) Sensation of pressure in bladder area Chest pain Elevated blood sugar Oral candidiasis GERD (gastroesophageal reflux disease) Pulmonary nodule HTN (hypertension) Heart palpitations Constipation Breast cancer screening Breast pain, left Elevated vitamin B12 level Neck muscle spasm Strain of neck muscle Low back pain Pubic ramus fracture Sore throat Skin tear of upper arm without complication Head injury, acute, without loss of consciousness Fall Medication noncompliance due to cognitive impairment RLQ abdominal pain Sinusitis Flu syndrome Precordial chest pain Atypical chest pain Cold intolerance Former smoker Abnormal lung sounds Fever Bilateral calf pain Nausea Left lower quadrant abdominal pain Dysuria Fatigue Lower extremity weakness Aortic stenosis Obstipation Dark stools Lower abdominal pain Gastroenteritis Neck pain on right side Back pain Rhinitis Elevated BP without diagnosis of hypertension Non-rheumatic aortic stenosis Diverticulitis GERD (gastroesophageal reflux disease) Cat scratch Cat bite Epigastric discomfort Diarrhea Neuropathy Arthritis GERD (gastroesophageal reflux disease) HTN (hypertension) Irritable bowel Heart murmur Family History Family History Father No problems noted. Mother No problems noted. Surgical History Surgical History S/P AVR S/P TAVR (transcatheter aortic valve replacement) Hx of esophagogastroduodenoscopy Hx of colonoscopy History of tonsillectomy History of appendectomy Social History Social History Household Members: Children Housing: House Are you a primary child care specialist to a significant other at home: No Do you presently have visiting nurse or other home services: No Alcohol intake: never Comment: Pt still ambulate on her own even though alarms are on Patient Tobacco Use Status: Former Tobacco user Tobacco use type: Cigarette Years Smoked: 55 e-Cigarette/Vaping Use: Never Used Second Hand Smoke Exposure: Yes Advance Directives: Yes Advance Directives on File: Yes Advance Directives Date on File: 09/21/23 Nutrition Risks: No Nutritional Risk service: No Current occupational status: retired Cognitive needs: No Hearing needs: No Vision needs: Yes (glasses) Meds Allergies Allergy/AdvReac Type Severity Reaction Status Date / Time buspirone Allergy Intermediate Rash Verified 06/16/25 22:06 Sulfa (Sulfonamide Allergy Intermediate RASH Verified 06/16/25 22:06 Antibiotics) cefuroxime Allergy Unknown Unknown Verified 06/16/25 22:06 garlic (GARLIC) Allergy Unknown PER H&P Verified 06/16/25 22:06 metronidazole (From FLAGYL) Allergy Unknown OCULAR Verified 06/16/25 22:06 MIGRAINES penicillamine Allergy Unknown Unknown Verified 06/16/25 22:06 ciprofloxacin AdvReac Intermediate neuropathic Verified 06/16/25 22:06 pain lisinopril AdvReac Intermediate Cough Verified 06/16/25 22:06 loratadine (From Claritin) AdvReac Mild Fatigued Verified 06/16/25 22:06 nitrofurantoin AdvReac Mild GI side Verified 06/16/25 22:06 effects cefuroxime Allergy Intermediate wheezy Uncoded 06/16/25 22:06 cough/itch flagyl Allergy Unknown Unknown Uncoded 06/16/25 22:06 From KEFLEX Allergy Unknown RASH Uncoded 06/16/25 22:06 Metoprolol Tartrate Allergy Unknown Unknown Uncoded 06/16/25 22:06 Sulfacet-R Allergy Unknown Unknown Uncoded 06/16/25 22:06 Active Medications: Current Medications Acetaminophen (Acetaminophen 325 Mg Tablet) 650 mg PO Q6H PRN PRN Reason: Pain, Mild 1-3,fever,headache Calcium Carbonate (Calcium Carbonate 750 Mg Tab.Chew) 750 mg PO Q4H PRN PRN Reason: Heartburn Clopidogrel Bisulfate (Clopidogrel Bisulfate 75 Mg Tablet) 75 mg PO DAILY [facility] Escitalopram Oxalate (Escitalopram Oxalate 10 Mg Tablet) 10 mg PO BID [facility] Magnesium Hydroxide (Milk Of Magnesia 30 Ml Oral.Susp) 30 ml PO DAILY PRN PRN Reason: Constipation Melatonin (Melatonin 3 Mg Tablet) 6 mg PO BEDTIME PRN PRN Reason: Insomnia Mirabegron (Mirabegron 50 Mg Tab.Er.24h) 50 mg PO BEDTIME [facility] Omeprazole (Omeprazole 20 Mg Capsule.Dr) 20 mg PO DAILY@0630 [facility] Sodium Chloride (0.9 % Sodium Chloride Flush 3 Ml Syringe) 3 ml IVFLUSH QSHIFT [facility] Home Medications ?Medication ?Instructions ?Recorded ?Confirmed ?Last Taken ?Type acetaminophen 325 mg tablet 325 mg PO Q4H PRN Pain 02/10/25 06/17/25 Unknown History citalopram 20 mg tablet (Celexa) 20 mg PO BID 05/14/25 06/17/25 06/16/25 History fluticasone propionate 50 1 spray intranasal DAILY PRN 05/16/25 06/17/25 Unknown History mcg/actuation nasal Allergy Symptoms spray,suspension mirabegron 50 mg tablet,extended 50 mg PO BEDTIME 05/16/25 06/17/25 06/15/25 History release 24 hr (Myrbetriq) polyethylene glycol 3350 17 17 g PO DAILY PRN Constipation 05/16/25 06/17/25 05/16/25 History gram/dose oral powder (Miralax) alprazolam 0.25 mg tablet 0.125 mg PO BID 06/17/25 06/17/25 06/16/25 History Physical Exam Vital Signs: Vital Signs: Last Vital Signs Temp 98.5 F 06/17/25 10:09 Pulse 74 06/17/25 10:09 Resp 18 06/17/25 10:09 BP 145/83 H 06/17/25 10:09 Pulse Ox 96 06/17/25 10:09 O2 Del Method Room Air 06/17/25 10:09 BMI result Body Mass Index 31.9 GENERAL APPEARANCE: in no acute distress, pleasant. NECK: no carotid bruit, no jugular venous distention. SKIN: no suspicious lesions, warm and dry. HEART: Mild systolic murmur aortic area, regular rate and rhythm. LUNGS: clear to auscultation bilaterally. ABDOMEN: soft, nontender. EXTREMITIES: no edema. PERIPHERAL PULSES: equal. NEUROLOGIC: No gross deficits, AAO X 3 Objective Labs and Meds 06/17/25 03:48 06/17/25 03:48 Lab results: Laboratory Results - last 24 hr 06/16/25 06/17/25 06/17/25 22:31 00:05 01:41 WBC 3.7 L RBC 3.10 L Hgb 9.1 L Hct 29.1 L D MCV 93.9 MCH 29.4 MCHC 31.3 RDW 18.0 H Plt Count 127 L MPV 12.1 Immature Gran % (Auto) 0.5 H Neut % (Auto) 66.2 Lymph % (Auto) 18.8 L Sunflower % (Auto) 11.3 H Eos % (Auto) 2.4 Baso % (Auto) 0.8 Lymph # (Auto) 0.7 L [place]flower # (Auto) 0.4 Eos # (Auto) 0.1 Baso # (Auto) 0.0 Abs Immat Gran (auto) 0.02 Absolute Neuts (auto) 2.5 Absolute Nucleated RBC 0.000 Nucleated RBC % (auto) 0.0 Smear Tech's Comments VERIFIED Absolute Retic Percent Retic Immature Retic Fraction Retic Hgb Equivalent Sodium 140 Potassium 4.2 Chloride 107 Carbon Dioxide 24 Anion Gap 13 BUN 32 H Creatinine 1.01 Estim Creat Clear Calc 41.9 Estimated GFR 52 Random Glucose 96 Haptoglobin Calcium 9.5 Iron TIBC % Saturation Unsat Iron Binding Total Bilirubin 0.3 AST 26 ALT 14 Alkaline Phosphatase 83 Lactate Dehydrogenase Troponin I High Sens 14.0 D 20.2 H Total Protein 6.8 Albumin 4.2 Vitamin B12 Folate TSH Urine Color Yellow Urine Appearance Clear Urine pH 5.5 Ur Specific [place] 1.020 Urine Protein Negative Urine Glucose (UA) Negative Urine Ketones Negative Urine Blood Negative Urine Nitrite Negative Ur Leukocyte Esterase Moderate (2+) H Urine RBC 0-2 Urine WBC 0-5 Ur Squamous Epith Cells 0-2 Urine Bacteria None Seen Hyaline Casts 0-2 ELLY, Polyspecific Positive ELLY Work-up 06/17/25 03:48 WBC 3.3 L RBC 2.94 L Hgb 8.6 L Hct 28.0 L MCV 95.2 MCH 29.3 MCHC 30.7 L RDW 17.9 H Plt Count 124 L MPV 11.6 Immature Gran % (Auto) 1.5 H Neut % (Auto) 65.7 Lymph % (Auto) 19.6 L Sunflower % (Auto) 9.2 Eos % (Auto) 3.1 Baso % (Auto) 0.9 Lymph # (Auto) 0.6 L [place]flower # (Auto) 0.3 Eos # (Auto) 0.1 Baso # (Auto) 0.0 Abs Immat Gran (auto) 0.05 H Absolute Neuts (auto) 2.1 Absolute Nucleated RBC 0.000 Nucleated RBC % (auto) 0.0 Smear Tech's Comments Absolute Retic 0.079 Percent Retic 2.7 H Immature Retic Fraction 13.2 Retic Hgb Equivalent 34.4 Sodium 140 Potassium 3.9 Chloride 107 Carbon Dioxide 25 Anion Gap 12 BUN 27 H Creatinine 0.80 Estim Creat Clear Calc 53.0 Estimated GFR > 60 Random Glucose 76 Haptoglobin 15 L Calcium 9.1 Iron 34 TIBC 260 % Saturation 13 L Unsat Iron Binding 226 Total Bilirubin AST ALT Alkaline Phosphatase Lactate Dehydrogenase 192 Troponin I High Sens 22.3 H Total Protein Albumin Vitamin B12 273 Folate 13.5 TSH 1.50 Urine Color Urine Appearance Urine pH Ur Specific [place] Urine Protein Urine Glucose (UA) Urine Ketones Urine Blood Urine Nitrite Ur Leukocyte Esterase Urine RBC Urine WBC Ur Squamous Epith Cells Urine Bacteria Hyaline Casts ELLY, Polyspecific NEGATIVE Positive ELLY Work-up TNP Assessment and Plan (1) S/P TAVR (transcatheter aortic valve replacement): Status: Acute (2) Pre-syncope: Status: Acute Plan Pleasant 84 year female with history of transcatheter aortic valve replacement who is presenting with presyncope. Clinically appears to be orthostasis related presyncopal event. Denying any other symptoms currently. Check orthostatic vital signs. If orthostatic then gentle hydration and reassess the vital signs. Her blood pressure in general has been elevated but antihypertensive medications we will be challenging in this situation. Hopefully with some gentle hydration her symptoms improve and she can be discharged home. Would tolerate somewhat elevated blood pressures because of risk for fall in this elderly lady. Thank you for allowing me to participate in the care of your patient. Please feel free to contact me if you have any questions. Procedures Date of Service Date of Service: 06/17/25
--- NOTE | 2025-06-17 11:30 | MHC.CM.PN ---
Chante 06/17/25, Pt. lives in her home, her son lives with her. She was going to begin VNA services, she just returned from [facility] [place] [facility] [place], which she said provided very good PT. PCP is confirmed: Dr. Garcia. HCP is on file and confirmed: [facility]. For DME, she has a cane, walker and rollator. DCP: home with services, CM to follow for DC needs.
--- NOTE | 2025-06-17 12:17 | PC.NURSE ---
Pt being brought to MRI at this time, monitor removed at this time, dentures removed as well and remain at bedside
--- NOTE | 2025-06-17 14:33 | PC.NURSE ---
Pt's son has her earrings at home.
--- NOTE | 2025-06-17 15:19 | MHC.SLORD ---
Speech Language Pathology Order Status: Order received for bedside swallow for this patient, patient seen, denies any swallowing difficulty, on regular diet and tolerating. Per chart and patient, c/o was speaking difficulty which is not new onset/residual from CVA (09/19/22), she has recieved tx for her needs from [facility]. Speech screened, patient presents with mild word finding issues. Son and Patient were advised to follow up with referral from PCP if communication concerns persist. Full assessment documentation to follow.
--- NOTE | 2025-06-17 15:40 | P.PNIM_ITS ---
Subjective Subjective Date of Service: 06/17/25 Interval History: Pt seen this am ion ed, she states that she feels better, states that she fell as her legs felt weak but denies passing out, Orthostats -ve, pending echo and brain mri Review of Systems -ve except as stated above Physical Exam 2 Exam: Exam: General: Alert, oriented, in no acute distress. Cooperative. Pleasant. Afebrile. Heart: RRR, (+) murmurs, rubs or gallops. Lungs: on RA, CTAB Abdomen: soft, NT, ND Extremities: No calf tenderness bilaterally, no swelling Musculoskeletal: Full range of motion. No joint swelling, deformity, or tenderness. Decreased muscle tone and strength. Skin: Warm/Dry. No pallor. No jaundice. Neurologic: Alert & oriented x4. Moving all extremities spontaneously. Normal speech. Psychological: Normal mood and affect. Thought process coherent. Vital Signs: Vital Signs: Last Vital Signs Temp 98 F 06/17/25 13:07 Pulse 87 06/17/25 13:07 Resp 13 06/17/25 13:07 BP 169/76 H 06/17/25 13:07 Pulse Ox 97 06/17/25 13:07 O2 Del Method Room Air 06/17/25 13:07 BMI result Body Mass Index 31.9 Objective Data Active Medications Acetaminophen (Acetaminophen 325 Mg Tablet) 650 mg PO Q6H PRN PRN Reason: Pain, Mild 1-3,fever,headache Calcium Carbonate (Calcium Carbonate 750 Mg Tab.Chew) 750 mg PO Q4H PRN PRN Reason: Heartburn Clopidogrel Bisulfate (Clopidogrel Bisulfate 75 Mg Tablet) 75 mg PO DAILY [facility] Last Admin: 06/17/25 11:21 Dose: 75 mg Documented By: JOSE Escitalopram Oxalate (Escitalopram Oxalate 10 Mg Tablet) 10 mg PO BID [facility] Last Admin: 06/17/25 11:21 Dose: 10 mg Documented By: JOSE Magnesium Hydroxide (Milk Of Magnesia 30 Ml Oral.Susp) 30 ml PO DAILY PRN PRN Reason: Constipation Melatonin (Melatonin 3 Mg Tablet) 6 mg PO BEDTIME PRN PRN Reason: Insomnia Mirabegron (Mirabegron 50 Mg Tab.Er.24h) 50 mg PO BEDTIME [facility] Omeprazole (Omeprazole 20 Mg Capsule.Dr) 20 mg PO DAILY@0630 [facility] Sodium Chloride (0.9 % Sodium Chloride Flush 3 Ml Syringe) 3 ml IVFLUSH QSHIFT [facility] Last Admin: 06/17/25 11:20 Dose: 3 ml Documented By: JOSE Labs 06/17/25 03:48 06/17/25 03:48 Labs: Laboratory Results - last 24 hr 06/16/25 06/17/25 06/17/25 22:31 00:05 01:41 MCV 93.9 MCH 29.4 MCHC 31.3 RDW 18.0 H Plt Count 127 L MPV 12.1 Immature Gran % (Auto) 0.5 H Neut % (Auto) 66.2 Lymph % (Auto) 18.8 L [place] % (Auto) 11.3 H Eos % (Auto) 2.4 Baso % (Auto) 0.8 Lymph # (Auto) 0.7 L [place] # (Auto) 0.4 Eos # (Auto) 0.1 Baso # (Auto) 0.0 Abs Immat Gran (auto) 0.02 Absolute Neuts (auto) 2.5 Absolute Nucleated RBC 0.000 Nucleated RBC % (auto) 0.0 Smear Tech's Comments VERIFIED Absolute Retic Percent Retic Immature Retic Fraction Retic Hgb Equivalent Anion Gap 13 Estim Creat Clear Calc 41.9 Estimated GFR 52 Random Glucose 96 Haptoglobin Calcium 9.5 Iron TIBC % Saturation Unsat Iron Binding Total Bilirubin 0.3 AST 26 ALT 14 Alkaline Phosphatase 83 Lactate Dehydrogenase Troponin I High Sens 14.0 D 20.2 H Total Protein 6.8 Albumin 4.2 Vitamin B12 Folate TSH Urine Color Yellow Urine Appearance Clear Urine pH 5.5 Ur Specific [place] 1.020 Urine Protein Negative Urine Glucose (UA) Negative Urine Ketones Negative Urine Blood Negative Urine Nitrite Negative Ur Leukocyte Esterase Moderate (2+) H Urine RBC 0-2 Urine WBC 0-5 Ur Squamous Epith Cells 0-2 Urine Bacteria None Seen Hyaline Casts 0-2 ELLY, Polyspecific Positive ELLY Work-up 06/17/25 03:48 MCV 95.2 MCH 29.3 MCHC 30.7 L RDW 17.9 H Plt Count 124 L MPV 11.6 Immature Gran % (Auto) 1.5 H Neut % (Auto) 65.7 Lymph % (Auto) 19.6 L [place] % (Auto) 9.2 Eos % (Auto) 3.1 Baso % (Auto) 0.9 Lymph # (Auto) 0.6 L [place] # (Auto) 0.3 Eos # (Auto) 0.1 Baso # (Auto) 0.0 Abs Immat Gran (auto) 0.05 H Absolute Neuts (auto) 2.1 Absolute Nucleated RBC 0.000 Nucleated RBC % (auto) 0.0 Smear Tech's Comments Absolute Retic 0.079 Percent Retic 2.7 H Immature Retic Fraction 13.2 Retic Hgb Equivalent 34.4 Anion Gap 12 Estim Creat Clear Calc 53.0 Estimated GFR > 60 Random Glucose 76 Haptoglobin 15 L Calcium 9.1 Iron 34 TIBC 260 % Saturation 13 L Unsat Iron Binding 226 Total Bilirubin AST ALT Alkaline Phosphatase Lactate Dehydrogenase 192 Troponin I High Sens 22.3 H Total Protein Albumin Vitamin B12 273 Folate 13.5 TSH 1.50 Urine Color Urine Appearance Urine pH Ur Specific [place] Urine Protein Urine Glucose (UA) Urine Ketones Urine Blood Urine Nitrite Ur Leukocyte Esterase Urine RBC Urine WBC Ur Squamous Epith Cells Urine Bacteria Hyaline Casts ELLY, Polyspecific NEGATIVE Positive ELLY Work-up TNP Assessment and Plan (1) Severe aortic stenosis: Status: Acute (2) S/P TAVR (transcatheter aortic valve replacement): Status: Acute (3) Mood disorder: Status: Acute Plan Bella Henley is a 84 y/o woman with PMHxy significant for severe status post TAVR who presented with fall after she stood up and her legs felt weak. Near syncope. ortho stats -ve, infections santiago -ve so far brain MRI -ve for acute process CTH non acute carotid doppler 0-49% stenosis b/l card consult appreciated, check echo and orthos PT eval pending Elevated troponin, likely related to above. Denied chest pain or shortness on breath. Continue to monitor. Speech difficulty, she thinks this is new. Brain MRI -ve Chronic pancytopenia. stable, outpt santiago Essential hypertension. not on any home meds Mood disorder. Continue home meds. Code status: Full. DVT prophylaxis: SCDs. Quality Stroke Does the patient have a stroke diagnosis?: No VTE Prior VTE?: No VTE Risk Level:: Medical - moderate - high VTE Device Contraindication: N/A - Device Ordered VTE Drug Contraindication: Treatment Not Indicated
--- NOTE | 2025-06-17 17:48 | MHC.SP.ADU ---
Referring provider: Bill Matias Reason for Referral: Speech difficulty Type of Treatment: [id number] Assessment of Aphasia Date of Plan of Treatment: 06/17/25 Onset of Symptoms/Illness: 09/19/22 Date Treatment Started: 06/17/25 Medical Diagnosis: Near syncope: Elevated troponin: Primary Speech Language Diagnosis: Mild anomia Secondary Speech Language Diagnosis: History Patient is an 84 year old woman who was admitted following a fall due to dizziness and possible syncope. Patients PMHX is significant for severe status post TAVR. Patient reported to this appeals writer that she had a CVA at the time of this procedure in September of 2022. Patient reported speech difficulties to admitting Hospitalist, and was referred for a Brain MRI, which had no acute findings, and to be assessed by speech. Order appeared as Bedside Swallow Assessment, which was not indicated and patient denied any swallow difficulties, SHEARING SUPERVISOR instead did language screening to assess speech difficulties. Patient as a part of this assessment reported that she had speech therapy through the VNA s/p CVA for what appeared to be an extended period, but does not currently receive Speech and Language therapy. Patient reported to this appeals writer a number of stressors including the of her , of a close friend, recent STR from a previous fall that did no go well, and pending decision about moving to assisted living. Medical History: Dizziness Nonspecific low blood pressure reading Annual wellness visit Acute diverticulitis LLQ abdominal pain Contusion of right lower leg Otitis media Cough Bronchitis Pelvic pain Chronic cough Elevated IgE level Status post fall Hip pain Post-menopausal URI (upper respiratory infection) Sensation of pressure in bladder area Chest pain Elevated blood sugar Oral candidiasis GERD (gastroesophageal reflux disease) Pulmonary nodule HTN (hypertension) Heart palpitations Medication List: Recent Hospitalizations: Yes: Reported that she had recently been in str for previous fall Respiratory Needs: Room Air Patient Orientation: Alert & Oriented x 4 Reported Speech, Language, Cognition difficulties: Comments: Mild difficulty with word finding that is a residual from a remote CVA Assessment Tests of Speech & Lang Adults: BNT Clinical Impression: Observations: Patient was presented with the short form of the BNT and completed a general interview to assess speech/word finding issues which presented to this examiner as her speech issue. Patient was able to name all 15 items, with some mild hesitations that included self cuing on three of the items (e.g. for pilot station she the tail is the clue to help her retrieve the word). In her connected speech, patient occasionally paused as she was speaking, noted that she was pausing, taking a minute to think about what she wanted to say, then proceeded to express herself well. Behaviors noted are indicative of a mild anomic aphasia that is, for the most part, resolved, however patient is still conscious of her difficulties at times. Patient reported that these occasional difficulties can make her anxious, which leads to further difficulty with expressing herself (causes a shut down ). Patient was advised to consult with her primary care provider for referral for additional Speech/Language services if she continues to be concerned about her communication skills. Given the remote and mostly resolved nature of her needs, referral as a part of this ED admission is not indicated at this time. Impressions and Recommendations Summary: Patient presents with mild residual issues related to a remote CVA (09/19/22), with sequelae of mild anomic aphasia. She has received treatment previously for her communication needs, and they are mostly resolved, however patient still has some anxiety and concerns about her occasional difficulties with word retrieval. Patient was advised to consult with her primary care provider for referral for additional Speech/Language services if she continues to be concerned about her communication skills. Given the remote and mostly resolved nature of her needs, referral as a part of this ED admission is not indicated at this time. Recommendation for Speech Therapy: NA:Typical Evaluation Discharged with Instructions for Home Use Recommended Referrals to be Discussed with Primary Care Provider: Need for re-referral for speech/language therapy (?) Patient Education: Completed: Yes Patient/Caregiver Education: Described Results of Evaluation Patient expressed understanding of evaluation Patient agrees with goals and treatment plan Comments/Barriers to Learning: Administrative Office Assistant Clinican/Clinical Fellow: No Supervisory Statement: N/A Speech Language Pathologist: Ann-Marie Orozco M.A., CCC-SHEARING SUPERVISOR
[2025-06-17] MEDS: Mirabegron 50 MG TAB.ER.24H PO (20:54)
[2025-06-18] VITALS (10 sets, daily range): BP systolic 91–142; BP diastolic 51–70; PULSE 67–98; RESP 18; TEMP 36.3–36.9; O2SAT 92–98
[2025-06-18] MEDS: 0.9 % Sodium Chloride Flush 3 ML SYRINGE IVFLUSH ×2 (00:47→09:23)
--- NOTE | 2025-06-18 08:50 | MHC.CM.PN ---
[facility] UPDATED IN [facility]. PLAN IS FOR HOME WITH THEIR SERVICES ONCE MEDICALLY CLEARED FOR DC.
--- NOTE | 2025-06-18 11:12 | MHC.CM.PN ---
PER PHYSICIAN ROUNDS, PATIENT WILL RETURN HOME TODAY. PLAN IS FOR RESUMPTION OF [facility].
--- NOTE | 2025-06-18 13:43 | PM.DS ---
DS: Providers Provider Date of Service: 06/18/25 Date of admission: 06/17/25 02:05 Date of discharge: 06/18/25 Primary care physician: Huma Garcia MD Consults: 06/17/25 02:41 Consult to Cardiology Routine Consulting Provider: [facility] Reason for consultation: Near syncope Has provider been notified: No DS: Diagnosis Discharge Diagnosis (1) Severe aortic stenosis: Status: Acute (2) S/P TAVR (transcatheter aortic valve replacement): Status: Acute (3) Mood disorder: Status: Acute DS: Summary Hospital Course Hospital Course: Bella Henley is a 84 y/o woman with PMHxy significant for severe status post TAVR who presented with fall after she stood up and her legs felt weak. Near syncope. ortho stats -ve, infections santiago -ve so far brain MRI -ve for acute process CTH non acute carotid doppler 0-49% stenosis b/l card consult appreciated, echo no new change PT eval home with services Elevated troponin, likely related to above. Denied chest pain or shortness on breath. Continue to monitor. Speech difficulty, resolved, brain mri non acute Chronic pancytopenia. stable, outpt santiago Essential hypertension. not on any home meds Mood disorder. Continue home meds. Time Attestation Discharge Coordination Time (in mins): 40 mins Quality: Safe Use of Opioids Does Pt have an Active Cancer Diagnosis on the Problem List?: No Quality: Stroke Does the patient have a stroke diagnosis?: No Physical Exam Exam: Exam: A&Ox3 abd soft non tender rest on RA, CTAB heart RRR no ROLAND moving all extremities Vital Signs: Vital Signs: Last Vital Signs Temp 98.3 F 06/18/25 12:00 Pulse 67 06/18/25 12:00 Resp 18 06/18/25 12:00 BP 110/63 06/18/25 12:00 Pulse Ox 98 06/18/25 12:00 O2 Del Method Room Air 06/18/25 12:00 O2 Flow Rate 88 06/18/25 07:05 FiO2 93 06/18/25 07:05 BMI result Body Mass Index 33.2 DS: Data Data Completed and Pending Completed studies during hospitalization [Text1]: Procedures Excision of Duodenum, Via Natural or Artificial Opening Endoscopic, Diagnostic (02/09/25) Excision of Stomach, Pylorus, Via Natural or Artificial Opening Endoscopic, Diagnostic (02/09/25) Transfusion of Nonautologous Red Blood Cells into Peripheral Vein, Percutaneous Approach (02/09/25) Labs on day of discharge: Laboratory Results - last 24 hr 06/18/25 09:15 Urine Hemoglobin Negative Discharge Plan Discharge Patient Disposition: Home Health Service Discharge Diagnosis: pre syncope Referrals: Charissa Marie [Outside] - 1 Week Po,Huma Leyva MD [Primary Care Provider, Internal Medicine] - 1 Week Discharge Medications: Continued cholecalciferol (vitamin D3) [Vitamin D3] 50 mcg (2,000 unit) tablet 50 mcg PO DAILY Qty: 90 3RF clopidogrel 75 mg tablet 75 mg PO DAILY Qty: 90 0RF pantoprazole [Protonix] 40 mg tablet,delayed release (DR/EC) 40 mg PO DAILY@0630 Qty: 90 0RF polyethylene glycol 3350 [Miralax] 17 gram/dose powder 17 g PO DAILY PRN (Reason: Constipation) fluticasone propionate 50 mcg/actuation spray,suspension 1 spray intranasal DAILY PRN (Reason: Allergy Symptoms) mirabegron [Myrbetriq] 50 mg tablet extended release 24 hr 50 mg PO BEDTIME alprazolam 0.25 mg tablet 0.125 mg PO BID acetaminophen 325 mg Tablet 325 mg PO Q4H PRN (Reason: Pain) citalopram [Celexa] 20 mg tablet 20 mg PO BID Discharge Orders: Discharge Order (Routine); Ordered 06/18/25 Ordered By: Sarah Ann Activity on Discharge: As tolerated Stand Alone Forms: Patient Portal Discharge page Print Language: Swedish Care Plan Goals: see below Health Concerns: see below Plan of Treatment: Pt presented with fall in the4 setting of feeling dizzy and lightheaded. She did not lose consciousness. Orthostats -ve. Brain MRI -ve for acute pathology, echo per cards wnl. Pt likely has supine HTN with drop in her BP when she stands which leads to momentarily dizziness and lightheadedness. Pt given detailed instructions on lifestyle modifications re vasovagal dizziness and hypotension and ambulation. Assessment: as above Patient Instructions: Hypotension (DC), Syncope in Older Adults (DC)
[2025-06-18 22:08] LABS: Appearance Urine Clear; Glucose Urine UA Negative (Negative); PH 5.5 (5.0-9.0); Specific Gravity - Urine 1.020 (1.005-1.025)
== END 2025-06-18 17:16 | disposition home health service (06) ==
LOC: HO.ED 06-17 01:43 → HO.EDOVER 06-17 02:34 → HO.IMC 06-17 18:07
PROVIDERS: Admitting Provider Internal Medicine; Emergency Provider Emergency Medicine Emergency Medical Services; PCP Internal Medicine; Visit Provider Student in an Organized Health Care Education/Training Program
DX: I35.0 Nonrheumatic aortic (valve) stenosis (principal); R79.89 Other specified abnormal findings of blood chemistry; R55 Syncope and collapse; D61.818 Other pancytopenia; S09.90XA Unspecified injury of head, initial encounter; W18.30XA Fall on same level, unspecified, initial encounter; Y93.9 Activity, unspecified; Y92.9 Unspecified place or not applicable; Y99.9 Unspecified external cause status; F39 Unspecified mood [affective] disorder; I10 Essential (primary) hypertension; E78.5 Hyperlipidemia, unspecified; J44.9 Chronic obstructive pulmonary disease, unspecified; Z79.899 Other long term (current) drug therapy; Z95.2 Presence of prosthetic heart valve; R47.9 Unspecified speech disturbances
CPT/HCPCS: 36415; 70450; 70551; 72125; 74176; 80048; 80053; 81001; 81003; 82607; 82746; 83010; 83540; 83615; 84443; 84484; 85025; 85045; 86880; 87086; 93005; 93306; 93880; 96360; 96361; 97161; 99222; 99285; Q9957

== ENCOUNTER → 2025-06-16 22:16 | Outpatient (BNV) | payer MEDICARE, OTHER, SELFPAY | PROVIDERS: Admitting Provider Internal Medicine; Emergency Provider Emergency Medicine Emergency Medical Services; PCP Internal Medicine; Visit Provider Internal Medicine Cardiovascular Disease | DX: I44.0 Atrioventricular block, first degree (principal) | CPT/HCPCS: 93010 ==

== ENCOUNTER → 2025-06-17 02:05 | Outpatient (BNV) | payer MEDICARE, OTHER, SELFPAY | PROVIDERS: Admitting Provider Internal Medicine; Emergency Provider Emergency Medicine Emergency Medical Services; PCP Internal Medicine; Visit Provider Internal Medicine | DX: I35.0 Nonrheumatic aortic (valve) stenosis (principal); Z95.2 Presence of prosthetic heart valve; F39 Unspecified mood [affective] disorder; R55 Syncope and collapse; R79.89 Other specified abnormal findings of blood chemistry | CPT/HCPCS: 99222; 99499 ==

== ENCOUNTER → 2025-06-17 02:05 | Outpatient (BNV) | payer MEDICARE, OTHER, SELFPAY | PROVIDERS: Admitting Provider Internal Medicine; Emergency Provider Emergency Medicine Emergency Medical Services; PCP Internal Medicine; Visit Provider Internal Medicine Cardiovascular Disease | DX: I34.0 Nonrheumatic mitral (valve) insufficiency (principal); Z95.2 Presence of prosthetic heart valve | CPT/HCPCS: 93306; 99223 ==

== ENCOUNTER → 2025-06-17 | Outpatient (BNV) | payer MEDICARE, OTHER, SELFPAY | PROVIDERS: Emergency Provider Emergency Medicine Emergency Medical Services; PCP Internal Medicine; Visit Provider Radiology Diagnostic Radiology | DX: R47.81 Slurred speech (principal); I65.23 Occlusion and stenosis of bilateral carotid arteries | CPT/HCPCS: 70551; 93880 ==

== ENCOUNTER 2025-06-27 13:07 | Outpatient (AMB) | payer MEDICARE, OTHER, SELFPAY ==
[2025-06-27 13:10] VITALS: BP 98/52; PULSE 85; RESP 18; TEMP 36.1; O2SAT 94; BMI 29.1
--- NOTE | 2025-06-27 13:10 | A.OFFPC_ITS ---
Vital Signs 06/27/25 13:10 Height 5 ft 3 in Weight 164 lb 4 oz BMI 29.1 BP 98/52 L Blood Pressure Location Lt brachial Position Sitting Respiration 18 Pulse 85 Pulse Source Pulse Oximeter Temp 96.9 F Temp Source Temporal Artery Scan Pulse Oximetry (%) 94 Oxygen Delivery Method Room Air Intake Visit Reasons: [facility] 06/16 Cosmetic Sales Advisor Required: No Accompanied by: Self / Same As Patient Allergies buspirone Allergy (Intermediate, Verified 06/27/25 13:11) Rash Sulfa (Sulfonamide Antibiotics) Allergy (Intermediate, Verified 06/27/25 13:11) RASH cefuroxime Allergy (Unknown, Verified 06/27/25 13:11) Unknown garlic (GARLIC) Allergy (Unknown, Verified 06/27/25 13:11) PER H&P metronidazole (From FLAGYL) Allergy (Unknown, Verified 06/27/25 13:11) OCULAR MIGRAINES penicillamine Allergy (Unknown, Verified 06/27/25 13:11) Unknown ciprofloxacin Adverse Reaction (Intermediate, Verified 06/27/25 13:11) neuropathic pain lisinopril Adverse Reaction (Intermediate, Verified 06/27/25 13:11) Cough loratadine (From Claritin) Adverse Reaction (Mild, Verified 06/27/25 13:11) Fatigued nitrofurantoin Adverse Reaction (Mild, Verified 06/27/25 13:11) GI side effects cefuroxime Allergy (Intermediate, Uncoded 06/16/25 22:06) wheezy cough/itch flagyl Allergy (Unknown, Uncoded 06/16/25 22:06) Unknown From KEFLEX Allergy (Unknown, Uncoded 06/16/25 22:06) RASH Metoprolol Tartrate Allergy (Unknown, Uncoded 06/16/25 22:06) Unknown Sulfacet-R Allergy (Unknown, Uncoded 06/16/25 22:06) Unknown Tobacco use date assessed: 06/27/25 Fall risk assessment: 2 + Falls in past year Last assessed Fall Risk: 06/27/25 Dental Screening Dental Screen Date: 06/27/25 Did you have a dental visit in the last 12 months?: No Did you have a dental problem in the last 6 months where you did not have access to dental care?: No Was dental information given to patient?: No HPI HPI Comments History of Present Illness Details 84 y/o Female patient who presents to [facility] today for HDF. Past medical history significant for severe status post TAVR, CVA, essential hypertension, hyperlipidemia and COPD. She was admitted at [facility] on 06/17 - 06/18 for Pre-syncope episode. She had an episode of lightheadedness upon standing up today resulting in a fall and head trauma. She denied loss of consciousness. Head and C-spine CT scan showed no acute findings. ECG showed normal sinus rhythm with 1st AV block and no acute ischemic changes. She has known history of severe aortic valve stenosis status post transcatheter aortic valve replacement complicated with stroke which she recovered from. Clinically appears to be orthostasis related presyncopal event. [facility] Medical History Mood disorder Severe aortic stenosis Dizziness Nonspecific low blood pressure reading Annual wellness visit Acute diverticulitis LLQ abdominal pain Contusion of right lower leg Otitis media Cough Bronchitis Pelvic pain Chronic cough Elevated IgE level Status post fall Hip pain Post-menopausal URI (upper respiratory infection) Sensation of pressure in bladder area Chest pain Elevated blood sugar Oral candidiasis GERD (gastroesophageal reflux disease) Pulmonary nodule HTN (hypertension) Heart palpitations Constipation Breast cancer screening Breast pain, left Elevated vitamin B12 level Neck muscle spasm Strain of neck muscle Low back pain Pubic ramus fracture Sore throat Skin tear of upper arm without complication Head injury, acute, without loss of consciousness Fall Medication noncompliance due to cognitive impairment RLQ abdominal pain Sinusitis Flu syndrome Precordial chest pain Atypical chest pain Cold intolerance Former smoker Abnormal lung sounds Fever Bilateral calf pain Nausea Left lower quadrant abdominal pain Dysuria Fatigue Lower extremity weakness Aortic stenosis Obstipation Dark stools Lower abdominal pain Gastroenteritis Neck pain on right side Back pain Rhinitis Elevated BP without diagnosis of hypertension Non-rheumatic aortic stenosis Diverticulitis GERD (gastroesophageal reflux disease) Cat scratch Cat bite Epigastric discomfort Diarrhea Neuropathy Arthritis GERD (gastroesophageal reflux disease) HTN (hypertension) Irritable bowel Heart murmur Surgical History S/P AVR S/P TAVR (transcatheter aortic valve replacement) Hx of esophagogastroduodenoscopy Hx of colonoscopy History of tonsillectomy History of appendectomy Family History Father No problems noted. Mother No problems noted. Social History Household Members: Children Housing: House Are you a primary resident care director to a significant other at home: No Do you presently have visiting nurse or other home services: Yes Alcohol intake: never Comment: Pt still ambulate on her own even though alarms are on Patient Tobacco Use Status: Former Tobacco user Tobacco use type: Cigarette Years Smoked: 55 e-Cigarette/Vaping Use: Never Used Second Hand Smoke Exposure: No Advance Directives Date on File: 09/21/23 service: No Current occupational status: retired Cognitive needs: No Hearing needs: No Vision needs: Yes (glasses) Questionnaire Thrive Questionnaire Date Thrive assessed: 01/05/25 I am a: Patient What is your living situation today?: I have a steady place to live Within the past 12 months, did the food you bought not last and you didn't have the money to get more?: Never true Within the past 12 months, did you worry whether your food would run out before you got money to buy more?: Never true Do you have trouble paying for medicines?: No Do you have trouble getting transportation to medical appointments?: No Do you have trouble paying your heating and electricity bill?: No Do you have trouble taking care of your child, family member or friend?: No Do you have trouble with day-to-day activities such as bathing, preparing meals, shopping, managing finances, etc.?: No Are you currently unemployed and looking for a job?: No Are you interested in more education?: No Currently or been in a relationship where the following occur: No concerns reported THRIVE Score: 0 PAIGE-7 AMB Questionnaire PAIGE-7 Date PAIGE - 7 assessed: 05/02/25 Source: Developed by Drs. Anatoliy Gavin, Peyton Hunt, Austyn Weber and colleagues, with an educational kentrell from [employer]. Review of Systems Const All systems reviewed & are unremarkable except as noted in HPI and below Physical exam (Primary Care) Vital Signs: Last Vital Signs Temp 96.9 F 06/27/25 13:10 Pulse 85 06/27/25 13:10 Resp 18 06/27/25 13:10 BP 98/52 L 06/27/25 13:10 Pulse Ox 94 06/27/25 13:10 Oxygen Delivery Method Room Air 06/27/25 13:10 BMI result Body Mass Index 29.1 Tobacco/Smoking Status: Tobacco use Status Tobacco use date assessed 06/27/25 06/27/25 13:22 Patient Tobacco Use Status Former Tobacco user 06/27/25 13:22 Tobacco use type Cigarette 06/27/25 13:22 e-Cigarette/Vaping Use Never Used 06/27/25 13:22 Thrive Assessment: Date of Thrive Assessment Date Thrive assessed 01/05/25 06/27/25 13:22 Currently or been in a relationship where the following occur: No concerns reported Const General: no acute distress and alert HENMT Head: Yes normocephalic Resp Effort & Inspection: normal respiratory effort Auscultation: clear to auscultation bilaterally Cardio Heart sounds: S1 normal heart sound present and S2 normal heart sound present Neuro General: gait normal and moves all extremities Coding Level of Care Code Est Pt Level 4 (23771) Diagnoses Near syncope R55 Time Spent (min) 20 Assessment & Plan Assessment & Plan (1) Near syncope: Code(s): R55 - Syncope and collapse Category: Medical Plan: Stable. Follow up with cardiology.
--- OUTSIDE RECORDS SUMMARY | 2025-06-27 15:09 | XMS_ITS | Encounter Summary ---
Author Organization [facility] Address [address] [place] [phone] Phone Care Team Providers Care Log Sorter Name Role Phone Norm Bates Unavailable [phone] Verónica Nielson MD Unavailable [phone] Bandar Renteria MD Unavailable [phone] Luis Milner CNP Unavailable [phone] Martha Estrada MD Unavailable [phone] David Walton MD Unavailable [phone] Deny Saleh DO Primary Care Provider [phone] Bandar Renteria MD Primary Care Provider Nick Gomez Primary Care Provider + Encounter Details Date Type Department Care Team (Late st Contact Info) Description 12/14/2020 Transcribe Orders [facility] [address] [place] [address] Deny Saleh DO [address] [facility] [address] [place], [place] [id number] Social History Tobacco Use Types Packs/Day Years [...] on filedocumented in this encounter Care Teams Log Sorter Relationship Specialty Start Date End Date Nunudelfina Deny SawyerDO [address] [place] [address] [email or web address] PCP - General Internal Medicine 08/09/17 01/09/21 Bandar Renteria MD [address] [place] [address] [address] PCP - General Internal Medicine 01/10/21 05/13/23 Nick Gomez PA [address] [place] [address] PCP - General Physician Gas Engineer 05/14/23 Norm Bates PA [address] [place] [address] Historical LMR Provider 06/22/17 2 Verónica Nielson MD [address] [address] [email or web address] Historical LMR Provider 06/22/17 Bandar Renteria MD [address] [place] [address] [address] Historical LMR Provider 06/22/17 2 Luis Milner CNP [address] [place] [address] Historical LMR Provider 06/22/17 09/11/21 Martha Estrada MD [address] [facility], [facility] [place] [address] [email or web address] Historical LMR Provider 06/22/17 David Walton MD [address] [place] [id number] Historical LMR Provider 06/22/17 2 documented as of this encounter Additional Source Comments The information contained in this document represents components of the legal health record. It is not the complete legal health record.[facility]
--- OUTSIDE RECORDS SUMMARY | 2025-06-27 15:09 | XMS_ITS | Encounter Summary ---
Author Organization [facility] Address [address] [place] [address] Care Team Providers Care Odd Shoe Examiner Name Role Phone Harris Gross MD Primary Care Provider [phone] Encounter Details Date Type Department Care Team (Late st Contact Info) Description 05/21/2025 Lab Requisition [facility] - Main Lab [address] [facility] [place] [address] Harris Gorss MD [address] [place], [place] [id number] Essential (primary) hypertension; Chronic obstructive pulmonary disease, [...] mmol/L LAB CHEMISTRY METHOD 05/21/2025 11:07 AM [facility] Potassium 4.2 3.5 - 5.5 mmol/L LAB CHEMISTRY METHOD 05/21/2025 11:07 AM [facility] Chloride 104 96 - 110 mmol/L LAB CHEMISTRY METHOD 05/21/2025 11:07 AM [facility] CO2 29 21 - 32 mmol/L LAB CHEMISTRY METHOD 05/21/2025 11:07 AM [facility] Anion Gap 5 3 - 11 LAB CHEMISTRY METHOD 05/21/2025 11:07 AM [facility] Glucose 74 70 - 100 mg/dL LAB CHEMISTRY METHOD 05/21/2025 11:07 AM [facility] BUN 28(H) 5 - 25 mg/dL LAB CHEMISTRY METHOD 05/21/2025 11:07 AM [facility] Creatinine 0.96 0.50 - 1.10 mg/dL LAB CHEMISTRY METHOD 05/21/2025 11:07 AM [facility] eGFR 58(L) >=60 mL/min/1. 73m2 LAB CHEMISTRY METHOD 05/21/2025 11:07 AM [facility] Comment:Calculation based on the Chronic Kidney Disease Epidemiology Collaboration (CKD-EPI) equation refit without adjustment for race. BUN/Creatinine Ratio 29.2 LAB CHEMISTRY METHOD 05/21/2025 11:07 AM [facility] Calcium 8.7 8.5 - 10.5 mg/dL LAB CHEMISTRY METHOD 05/21/2025 11:07 AM [facility] AST (SGOT) 17 10 - 42 unit/L LAB CHEMISTRY METHOD 05/21/2025 11:07 AM [facility] ALT (SGPT) 13 10 - 60 unit/L LAB CHEMISTRY METHOD 05/21/2025 11:07 AM EDT [facility] Alkaline Phosphatase 86 42 - 121 unit/L LAB CHEMISTRY METHOD 05/21/2025 11:07 AM EDT [facility] Total Protein 6.1 6.0 - 8.0 g/dL LAB CHEMISTRY METHOD 05/21/2025 11:07 AM [facility] Albumin 3.4 3.2 - 5.0 g/dL LAB CHEMISTRY METHOD 05/21/2025 11:07 AM T [facility] Total Bilirubin 0.2 0.0 - 1.4 mg/dL LAB CHEMISTRY METHOD 05/21/2025 11:07 AM [facility] Blood Venous blood specimen / Unknown Venipuncture / Unknown 05/21/2025 4:56 AM EDT 05/21/2025 10:01 AM EDT us Harris Gross MD LAB BLOOD ORDERABLES Final Resul t [facility] [address] [place] [address], * (ABNORMAL) Complete blood count (05/21/2025 4:56 AM EDT) WBC 3.1(L) 4.8 - 10.8 K/[facility] LAB [facility] RBC 2.50(L) 3.80 - 4.80 M/mcL LAB HEMETOLOGY METHOD [facility] Hemoglobin 6.9(L) 11.5 - 16.0 g/dL LAB HEMETOLOGY METHOD 05/21/2025 10:50 AM [facility] Hematocrit 22.8(L) 35.0 - 47.0 % LAB HEMETOLOGY METHOD 05/21/2025 10:50 AM EDT [facility] MCV 91.2 79.0 - 98.0 FL LAB HEMETOLOGY METHOD 05/21/2025 10:50 AM EDT [facility] MCH 27.6 27.0 - 32.0 pcg LAB HEMETOLOGY METHOD 05/21/2025 10:50 AM EDT [facility] MCHC 30.3(L) 32.0 - 37.0 g/dL LAB HEMETOLOGY METHOD 05/21/2025 10:50 AM EDT [facility] RDW 14.9 11.0 - 15.0 % LAB HEMETOLOGY METHOD 05/21/2025 10:50 AM EDT [facility] Platelets 149 130 - 400 K/mcL LAB HEMETOLOGY METHOD 05/21/2025 10:50 AM EDT [facility] MPV 11.7(H) 7.0 - 11.0 FL LAB HEMETOLOGY METHOD 05/21/2025 10:50 AM EDT [facility] NRBC 0.0 <1.0 % LAB HEMETOLOGY METHOD 05/21/2025 10:50 AM EDT [facility] NRBC Absolute 0.00 <0.10 K/mcL LAB HEMETOLOGY METHOD 05/21/2025 10:50 AM EDT [facility] Blood Venous blood specimen / Unknown Venipuncture / Unknown 05/21/2025 4:56 AM EDT 05/21/2025 10:01 AM EDT us Harris Gross MD LAB BLOOD ORDERABLES Final Resul t [facility] [address] [place] [address], documented in this encounter Visit Diagnoses Diagnosis Essential (primary) hypertension Unspecified essential hypertension Chronic obstructive pulmonary disease, unspecified (CMS/HCC V24, CMS/HCC V28) Dizziness and giddiness documented in this encounter Care Teams Odd Shoe Examiner Relationship Specialty Start Date End Date Harris Gross MD [address] [place] [address] [address] [place] [address] PCP - General Geriatric Medicine 02/13/25 documented as of this encounter
--- OUTSIDE RECORDS SUMMARY | 2025-06-27 15:09 | XMS_ITS | Encounter Summary ---
Author Organization [facility] Address [address] [place] [address] Care Team Providers Care Roof Truss Builder Name Role Phone Harris Gross MD Primary Care Provider [phone] Encounter Details Date Type Department Care Team (Late st Contact Info) Description 05/25/2025 Lab Requisition [facility] - Main Lab [address] [facility] [place] [address] Harris Gross MD [address] [place], [place] [phone] Essential (primary) hypertension; Chronic obstructive pulmonary disease, [...] LAB CHEMISTRY METHOD 05/26/2025 12:57 PM EDT [facility] Blood Venous blood specimen / Unknown Venipuncture / Unknown 05/26/2025 4:52 AM EDT 05/26/2025 10:18 AM EDT us Harris Gross MD LAB BLOOD ORDERABLES Final Resul t [facility] [address] [place] [address], * Iron and TIBC (05/26/2025 4:52 AM EDT) Iron 88 40 - 150 mcg/dL LAB CHEMISTRY METHOD 05/26/2025 12:56 PM EDT [facility] TIBC 358 250 - 450 mcg/dL LAB CHEMISTRY METHOD 05/26/2025 12:56 PM EDT [facility] Iron Saturation 25 15 - 50 % LAB CHEMISTRY METHOD 05/26/2025 12:56 PM EDT [facility] Blood Venous blood specimen / Unknown Venipuncture / Unknown 05/26/2025 4:52 AM EDT 05/26/2025 10:18 AM EDT us Harris Gross MD LAB BLOOD ORDERABLES Final Resul t [facility] [address] [place] [address], * (ABNORMAL) Basic metabolic panel (05/26/2025 4:52 AM EDT) Sodium 141 133 - 145 mmol/L LAB CHEMISTRY METHOD 05/26/2025 12:56 PM EDT [facility] Potassium 4.8 3.5 - 5.5 mmol/L LAB CHEMISTRY METHOD 05/26/2025 12:56 PM [facility] Chloride 108 96 - 110 mmol/L LAB CHEMISTRY METHOD 05/26/2025 12:56 PM [facility] CO2 30 21 - 32 mmol/L LAB CHEMISTRY METHOD 05/26/2025 12:56 PM [facility] Anion Gap 3 3 - 11 LAB CHEMISTRY METHOD 05/26/2025 12:56 PM [facility] Glucose 75 70 - 100 mg/dL LAB CHEMISTRY METHOD 05/26/2025 12:56 PM [facility] BUN 21 5 - 25 mg/dL LAB CHEMISTRY METHOD 05/26/2025 12:56 PM [facility] Creatinine 0.98 0.50 - 1.10 mg/dL LAB CHEMISTRY METHOD 05/26/2025 12:56 PM [facility] eGFR 57(L) >=60 mL/min/1. 73m2 LAB CHEMISTRY METHOD 05/26/2025 12:56 PM [facility] Comment:Calculation based on the Chronic Kidney Disease Epidemiology Collaboration (CKD-EPI) equation refit without adjustment for race. BUN/Creatinine Ratio 21.4 LAB CHEMISTRY METHOD 05/26/2025 12:56 PM [facility] Calcium 9.1 8.5 - 10.5 mg/dL LAB CHEMISTRY METHOD 05/26/2025 12:56 PM EDT [facility] Blood Venous blood specimen / Unknown Venipuncture / Unknown 05/26/2025 4:52 AM EDT 05/26/2025 10:18 AM EDT us Harris Gross MD LAB BLOOD ORDERABLES Final Resul t [facility] [address] [place] [address], * (ABNORMAL) Complete blood count (05/26/2025 4:52 AM EDT) WBC 3.5(L) 4.8 - 10.8 K/mcL LAB HEMETOLOGY METHOD 05/26/2025 12:53 PM EDT [facility] RBC 2.70(L) 3.80 - 4.80 M/mcL LAB HEMETOLOGY METHOD 05/26/2025 12:53 PM EDT [facility] Hemoglobin 7.5(L) 11.5 - 16.0 g/dL LAB HEMETOLOGY METHOD 05/26/2025 12:53 PM EDT [facility] Hematocrit 25.0(L) 35.0 - 47.0 % LAB HEMETOLOGY METHOD 05/26/2025 12:53 PM EDT [facility] MCV 92.3 79.0 - 98.0 FL LAB HEMETOLOGY METHOD 05/26/2025 12:53 PM EDT [facility] MCH 27.7 27.0 - 32.0 pcg LAB HEMETOLOGY METHOD 05/26/2025 12:53 PM EDT [facility] MCHC 30.0(L) 32.0 - 37.0 g/dL LAB HEMETOLOGY METHOD 05/26/2025 12:53 PM EDT [facility] RDW 15.2(H) 11.0 - 15.0 % LAB HEMETOLOGY METHOD 05/26/2025 12:53 PM EDT [facility] Platelets 156 130 - 400 K/mcL LAB HEMETOLOGY METHOD 05/26/2025 12:53 PM EDT [facility] MPV 12.4(H) 7.0 - 11.0 FL LAB HEMETOLOGY METHOD 05/26/2025 12:53 PM EDT [facility] NRBC 0.0 <1.0 % LAB HEMETOLOGY METHOD 05/26/2025 12:53 PM EDT [facility] NRBC Absolute 0.00 <0.10 K/mcL [facility] 05/26/2025 12:53 PM EDT [facility] Blood Venous blood specimen / Unknown Venipuncture / Unknown 05/26/2025 4:52 AM EDT 05/26/2025 10:18 AM EDT Harris Gross MD LAB BLOOD ORDERABLES Final Resul t [facility] [address] [place] [address], documented in this encounter Visit Diagnoses Diagnosis Essential (primary) hypertension Unspecified essential hypertension Chronic obstructive pulmonary disease, unspecified (CMS/HCC V24, CMS/HCC V28) Gastro-esophageal reflux disease without esophagitis Anemia, unspecified documented in this encounter Care Teams Roof Truss Builder Relationship Specialty Start Date End Date Harris Gross MD [address] [place] [address] [address] [place] [address] PCP - General Geriatric Medicine 02/13/25 documented as of this encounter
--- OUTSIDE RECORDS SUMMARY | 2025-06-27 15:09 | XMS_ITS | Data Portability ---
Author Organization [facility] Internal Medicine, Telehealth Patient Home Address [address] [place] [id number] Assessment No assessment recorded. Plan of Treatment Reminders Order Date Submit Date Provider Last Modified By Organization Details Last Modified Time Details Appointments None recorded. Lab BMP, blood [address] Internal Medicine, [address] [place] [address], [place], [address], 9 07:42:19 lipid panel, blood [address] Internal Medicine, [address] [place] [address], [place], [address], 9 07:42:20 Referral None recorded. Procedures None recorded. Surgeries None recorded. Imaging None recorded. Medication Orders Cipro 500 mg tablet 2018 019 [id number], [address] [place], [place], [id number], 9 11:53:38 Zithromax Z-Rajesh 250 mg tablet 2018 019 [facility][id number], [address] [place], [place], [id number], 9 11:53:23 metoprolol succinate ER 25 mg tablet,exte nded release 24 hr 2018 019 [id number], [address] [place], [place], [id number], 9 11:15:40 Patient Targets Encounter Date Encounter Id Patient Goals Patient Target Last Modified By Organization Details Last Modified Time 09/26/2018 [id number] Call therapist to schedule counseling mindyerlinda Not available 09/26/2018 11:54:07 Patient Instructions Encounter Date Encounter Id Patient Instructions Last Modified By Organization Details Last Modified Time 09/21/2018 [id number] Relaxation, reconsider escitalopram- will review at f/u next week to avoid dual med starting together marilynn Not available 09/21/2018 15:27:44 09/26/2018 [id number] pulse oximetry* marilynn Not available 09/26/2018 11:54:08 10/08/2018 [id number] Acute Sinusitis: Care Instructions marilynn Not available 10/08/2018 11:28:17 pulse oximetry* marilynn Not available 10/08/2018 11:28:17 12/04/2018 [id number] pulse oximetry* marilynn Not available 12/04/2018 12:22:51 Reason for Referral None Reported. Results Created Date Observation Date Name Description Value Unit Range Abnormal Flag Note LastModifiedBy Organization Detail LastModifiedTime 09/26/1909/26/2018 pulse oxime try* Result 96 Not Available [facility] [address] [place] [address], [phone], 09/26/2018 11:15:30 10/08/19 19 10/08/2018 pulse oxime try* Result 97 Not Available [facility] [address] [place] [address], [phone], 10/08/2018 11:18:00 12/05/19 19 12/04/2018 pulse oxime try* Result 97 Not Available [facility] [address] [place] [address], [phone], 12/04/2018 11:55:20 Result Notes None recorded. Problems Name Problem SNOMED Code Status Onset Date Resolution Date Notes Provider Name and Address Organization Details Recorded Time Diverticul itis 200407118 Active 2017 Taina Hanson [facility] 8 16:58:14 Chronic obstructiv e pulmonary disease 83948978 Active 2017 Tainaronnell Hanson [facility] 8 16:58:22 Aortic valve stenosis 23774466 Active 2017 Tainaronnell Hanson [facility] 8 16:58:36 Anxiety 85753385 Active 2017 Tainaronnell Hanson [facility] 8 16:58:45 Cystocele 516121889 Active 2017 Tainaronnell Hanson [facility] 8 16:58:58 Abdominal aortic aneurysm 953561841 Active 2017 Samina Lama NP, [address] [place], [address], [facility] 8 13:58:39 Problem Notes None recorded. Medical Equipment None Reported. Allergies Allergen ID Allergen Name Allergen Category Reaction Reaction Severity Criticality Documentation Date Start Date Code Code System Note Provider Name and Address Organization Details Recorded Time 1547 Substance with sulfonami de structure and antibacte rial mechanism of action (substanc e) medicatio n Not available Not available Not available 02/06/2018 54177 8003 SNOMED Tainaronnell Hanson [facility] 8 16:57:43 1548 Keflex medicatio n Not available Not available Not available 02/06/2018 7 RxNorm Taina Tarangoicki [facility] 8 16:57:55 2328 Flagyl medicatio n other moderate Not available 05/29/2018 6 RxNorm [facility] 8 11:44:55 2717 metoprolo l Not available chest pain Not available Not available 09/21/2018 6918 RxNorm Tainaronnell Tarangoickdonaldo [facility] 9 16:31:23 Medications Name [...] % 97 % 128/84 mm[Hg] Taina Sukhdeepmary [facility] 9 14:32:26 Date Recorded Body height Heart rate Oxygen saturation Oxygen saturation in Arterial blood by Pulse oximetry Systolic And Diastolic Provider Name and Address Organization Details Last Updated DateTime 9 168.91 cm 90 /min 96 % 96 % 124/80 mm[Hg] Eunice Molina [facility] 9 11:17:24 Date Recorded Heart rate Provider Name an d Address Organization Details Last Updated DateTime 10/08/2018 84 /min Samina Lama NP, [address] [place], [address], [facility] 10/08/2018 11:28:37 Date Recorded Body height Oxygen saturation Oxygen saturation in Arterial blood by Pulse oximetry Heart rate Body temperature Systolic And Diastolic Provider Name and Address Organization Details Last Updated DateTime 9 168.91 cm 97 % 97 % 112 /min 98.2 [degF] 142/86 mm[Hg] [facility] 11:17:37 Date Recorded Heart rate Provider Name an d Address Organization Details Last Updated DateTime 10/19/2018 80 /min Samina Lama NP, [address] [place], [address], [facility] 10/19/2018 12:04:58 Date Recorded Body height Heart rate Oxygen saturation Oxygen saturation in Arterial blood by Pulse oximetry Systolic And Diastolic Provider Name and Address Organization Details Last Updated DateTime 9 168.91 cm 105 /min 98 % 98 % 140/80 mm[Hg] Taina Hanson [facility] 9 11:45:01 Date Recorded Body height Body mass index (BMI) Body weight Oxygen saturation Oxygen saturation in Arterial blood by Pulse oximetry Heart rate Systolic And Diastolic Provider Name and Address Organization Details Last Updated DateTime 9 168.91 cm 31.1 kg/m2 56048.6 7 g 97 % 97 % 97 /min 120/90 mm[Hg] Dahiana Ha [facility] Internal [facility] 9 11:56:24 Social History Question Answer Notes LastModified by Organizat ion Details LastModified Time Tobacco Smoking Status Former Smoker Not Available [employer] 07/07/2020 03:36:24 What Was The Date Of Your Most Recent Tobacco Screening? 12/04/2018 [id number] Information not available 07/07/2020 Sex: Unknown Functional [...] virus, quadrivalent, preservative 8 completed Eunice Molina [facility] 09/26/2018 11:16:26 Past Encounters Encounter ID Performer Location Encounter Start Date Encounter Closed Date Diagnosis/Indication Diagnosis SNOMED-CT Code Diagnosis ICD10 Code Diagnosis IMO Codes Diagnosis Note [id number] Deny Saleh DO [facility] [address] [facility] [address] [facility],[place] [address] 02/07/2018 11:02:27 02/07/2018 16:46:02 Anxiety 74196399 F41.9 Nail changes 797457875 L 60.9 Abdominal aortic aneurysm 462278943 I71.4 CT 11/2017, no changes 2016, 2.85 cm Aortic david nosis, non-rheumatic 751167405 I35.0 stable Gastroesop hageal reflux disease 724408858 K21.9 d/c [place] m[place], call if persists Insomnia 550433364 G47.0 0 review proper sleep hygiene be more active during day avoid naps [id number] Deny Saleh [facility] [address] [facility],[place] [address] 03/16/2018 11:29:23 03/20/2018 08:12:01 Dehydration 40875765 E86.0 Gastroenteritis 32949759 K52.9 Aortic valve stenosis 60 786629 I35.0 stable, follow [id number] Deny Saleh [facility] [address] [facility],[place] [address] 05/16/2018 13:23:14 05/16/2018 14:06:44 Anxiety 64921103 F41.9 BID lorazepam helps Aortic valve stenosis 60 252911 I35.0 stable, echo 05/31/2017 Active or passive immunization 550570525 Z23 Abdominal aortic aneurysm 716465306 I71.4 CT 11/2017, no changes 2016, 2.85 cm Chronic ob structive pulmonary disease 05206560 J44.9 Non smoker X years, asymptomat ic Diverticular disease 397 821838 K57.90 no recent flare [id number] Deny Saleh [facility] Internal [facility] [address] [facility],[place] [address] 05/29/2018 11:40:58 05/29/2018 16:52:51 Aortic valve stenosis 99701620 I35.0 stable, echo 05/31/2017 Anxiety 52570689 F41.9 BID lorazepam helps, discussed current fears re: Constipation 78643473 K5 9.00 [id number] Deny Saleh [facility] [address] [facility],[place] [address] 08/14/2018 11:20:27 08/14/2018 17:00:16 Anxiety 51203734 F41.9 BID lorazepam helps, discussed current fears Aortic valve stenosis 60 591323 I35.0 stable, echo 05/31/2017 Diverticulitis 545634817 K57.92 Increased frequency of urination 411019324 R35.0 [id number] Deny Saleh DO [facility] [address] [facility] [address],[place] [address] 08/20/2018 11:12:33 08/20/2018 12:20:46 Anxiety 82993048 F41.9 BID alprazolam helps, discussed current fears Diverticulitis 748363202 K57.92 Aortic valve stenosis 60 645710 I35.0 stable, echo 05/31/2017 Family problems 64695300 4 Z63.79 Suggest therapy, names provided. Pt agrees [id number] Deny Saleh [facility] [address] [facility] [facility],[place] [address] 09/12/2018 10:19:31 09/12/2018 20:18:16 Abdominal aortic aneurysm 870225275 I71.4 CT 11/2017, no changes 2016, 2.85 cm Chronic ob structive pulmonary disease 01301033 J44.9 Non smoker X years, asymptomat ic Anxiety 08029695 F41.9 BID alprazolam helps, discussed current fears Aortic valve stenosis 60 714670 I35.0 stable, echo 05/31/2017 [id number] Deny Saleh [facility] [address] [facility] [address] [address] 09/21/2018 14:26:58 09/25/2018 11:17:00 Anxiety 70700407 F41.9 discussed current fears again, see below Aortic valve stenosis 60 468318 I35.0 [id number] Deny Saleh [facility] [address] [facility] [address] [address] 09/26/2018 11:12:05 09/26/2018 13:02:53 Hypertensive disorder 07726188 I10 Chronic ob structive pulmonary disease 29700007 J44.9 Non smoker X years, asymptomat ic Anxiety 27842697 F41.9 discussed current fears again, see below Aortic valve stenosis 60 661454 I35[place] [id number] Deny Saleh [facility] [address] [facility] [address] [address] 10/08/2018 11:12:38 10/08/2018 14:35:10 Cough 51876979 R05 Acute sinusitis 75308953 J01.90 Anxiety 60486368 F41.9 revisited [id number] Deny Saleh [facility] [address] [facility],[place] [address] 10/19/2018 11:41:00 10/19/2018 12:37:34 Diverticulitis 971221118 K57.92 Intolerant Flagyl Anxiety 96555026 F41.9 revisited Aortic valve stenosis 60 679222 I35.0 asymptomat ic Abdominal aortic aneurysm 974426966 I71.4 CT 11/2017, no changes 2016, 2.85 cm Chronic ob structive pulmonary disease 31990693 J44.9 Non [place]oker [place] [id number] Deny Saleh [facility] [address] [facility] [facility], [place] [address] 12/04/2018 11:49:58 12/04/2018 16:03:42 Chronic obstructive pulmonary disease 30027609 J44.9 Non smoker X years, asymptomat ic Anxiety 36132406 F41.9 revisited Aortic valve stenosis 60 035807 I35.0 asymptomat ic Health Concerns Section Related Observation LastModified by Organization Detai ls LastModified Time None Recorded Concern Status LastModified by Organization Details LastModified Time None Recorded Advance Directives Directive None Recorded Payers Insurance Date Sequence Insurance Name Policy Number Policy Berry Covered Member ID Berry Member ID Guarantor Name 12/03/2018 2 [facility] IN[facility] (INDEMNITY) [id number] Bella Henley [id number] Bella Henley 12/03/2018 1 MEDICARE [place]: [employer] Bella Henley [id number] Bella Henley Notes Date Note Type Note Provider Name a nd Address Organization Details Recorded Time 09/21/2018 text/html ROS as noted in the HPI Here with concerns BP had panic attack this am, ambulance was called Checked BP after pts episode was 158/101 Did not start escitalopram prescribed last week , under a great deal of stress Samina Lama NP, [address] [place], [address], [facility] 09/21/2018 15:27:56 09/26/2018 text/html ROS [...] to complete ADL's Samina Lama NP, S [address] [place] [address], [address], [facility] 09/26/2018 11:54:50 10/08/2018 text/html ROS [...] family situation Samina Lama NP, [address] [place], [address], [facility] 10/08/2018 11:49:45 10/19/2018 text/html Yesterday felt ok last night 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 this a.m. also increased voiding w/no dysuria no N/V/D/C, no BRBPR or hematuria Samina Lama NP, [address] [place], [address], [facility] 10/19/2018 12:09:27 12/04/2018 text/html ROS as noted in the HPI Very anxious re: husbands cognitive decline/getting worn out In therapy w/Peter Dopp Son also recent renal cancer, surgery went well.-but pt. gets worked up over everything pt recently started back on allergy shots some heartburn and post nasal drip Samina Lama, RADIO FREQUENCY DESIGN ENGINEER, [address] [facility], [place], [address], [facility] 12/04/2018 12:23:16 OBGyn Episode No OBEpisode recorded.
--- OUTSIDE RECORDS SUMMARY | 2025-06-27 15:09 | XMS_ITS | Encounter Summary ---
Author Organization [facility] Address [address] [place] [address] Care Team Providers Care Adjunct Lecturer Name Role Phone Harris Gross MD Primary Care Provider Encounter Details Date Type Department Care Team (Late st Contact Info) Description 05/22/2025 Lab Requisition [facility] - Main Lab [address] [facility] [employer] [place] [address] Harris Gross MD [address] [place], [place] [id number] Essential (primary) hypertension; Anemia, unspecified Social History [...] LAB CHEMISTRY METHOD 05/22/2025 10:28 AM EDT [facility] Potassium 3.9 3.5 - 5.5 mmol/L LAB CHEMISTRY METHOD 05/22/2025 10:28 AM [facility] Chloride 104 96 - 110 mmol/L LAB CHEMISTRY METHOD 05/22/2025 10:28 AM [facility] CO2 29 21 - 32 mmol/L LAB CHEMISTRY METHOD 05/22/2025 10:28 AM [facility] Anion Gap 5 3 - 11 LAB CHEMISTRY METHOD 05/22/2025 10:28 AM [facility] Glucose 66(L) 70 - 100 mg/dL LAB CHEMISTRY METHOD 05/22/2025 10:28 AM [facility] BUN 23 5 - 25 mg/dL LAB CHEMISTRY METHOD 05/22/2025 10:28 AM [facility] Creatinine 0.91 0.50 - 1.10 mg/dL LAB CHEMISTRY METHOD 05/22/2025 10:28 AM [facility] eGFR 62 >=60 mL/min/1. 73m2 LAB CHEMISTRY METHOD 05/22/2025 10:28 AM [facility] Comment:Calculation based on the Chronic Kidney Disease Epidemiology Collaboration (CKD-EPI) equation refit without adjustment for race. BUN/Creatinine Ratio 25.3 LAB CHEMISTRY METHOD 05/22/2025 10:28 AM [facility] Calcium 8.9 8.5 - 10.5 mg/dL LAB CHEMISTRY METHOD 05/22/2025 10:28 AM [facility] Blood Venous blood specimen / Unknown Venipuncture / Unknown 05/22/2025 5:27 AM EDT 05/22/2025 9:40 AM EDT us Harris Gross MD LAB BLOOD ORDERABLES Final Resul t [facility] [address] [place] [address], * (ABNORMAL) Complete blood count (05/22/2025 5:27 AM EDT) [facility] Signature WBC 2.8(L) 4.8 - 10.8 K/mcL LAB HEMETOLOGY METHOD 05/22/2025 11:24 AM [facility] RBC 2.50(L) 3.80 - 4.80 M/mcL LAB HEMETOLOGY METHOD 05/22/2025 11:24 AM [facility] Hemoglobin 7.0(L) 11.5 - 16.0 g/dL LAB HEMETOLOGY METHOD 05/22/2025 11:24 AM [facility] Hematocrit 23.2(L) 35.0 - 47.0 % LAB HEMETOLOGY METHOD 05/22/2025 11:24 AM [facility] MCV 91.3 79.0 - 98.0 FL LAB HEMETOLOGY METHOD 05/22/2025 11:24 AM [facility] MCH 27.6 27.0 - 32.0 pcg LAB HEMETOLOGY METHOD 05/22/2025 11:24 AM [facility] MCHC 30.2(L) 32.0 - 37.0 g/dL LAB HEMETOLOGY METHOD 05/22/2025 11:24 AM [facility] RDW 15.0 11.0 - 15.0 % LAB HEMETOLOGY METHOD 05/22/2025 11:24 AM [facility] Platelets 145 130 - 400 K/mcL LAB HEMETOLOGY METHOD 05/22/2025 11:24 AM [facility] MPV 11.9(H) 7.0 - 11.0 FL LAB HEMETOLOGY METHOD 05/22/2025 11:24 AM [facility] NRBC 0.0 <1.0 % LAB HEMETOLOGY METHOD 05/22/2025 11:24 AM EDT [facility] NRBC Absolute 0.00 <0.10 K/mcL LAB HEMETOLOGY METHOD 05/22/2025 11:24 AM EDT [facility] ([facility]) [facility] LAB Blood Venous blood specimen / Unknown Venipuncture / Unknown 05/22/2025 5:27 AM EDT 05/22/2025 9:40 AM EDT us Harris Gross MD LAB BLOOD ORDERABLES Final Resul t [facility] ([facility] [address] [place] [address], documented in this encounter Visit Diagnoses Diagnosis Essential (primary) hypertension Unspecified essential hypertension Anemia, unspecified documented in this encounter Care Teams Adjunct Lecturer Relationship Specialty Start Date End Date Harris Gross MD [address] [place] [address] [address] [place] [address] PCP - General Geriatric Medicine 02/13/25 documented as of this encounter
--- OUTSIDE RECORDS SUMMARY | 2025-06-27 15:09 | XMS_ITS | Encounter Summary ---
Author Organization [facility] Address [address] [place] [address] Care Team Providers Care Bow Tacker Name Role Phone Harris Gross MD Primary Care Provider [phone] Encounter Details Date Type Department Care Team (Late st Contact Info) Description 05/28/2025 Lab Requisition [facility] - Main Lab [address] [facility] [place] [address] Harris Gross MD [address] [place], [place] [address] Essential (primary) hypertension Social History Tobacco Use [...] LAB CHEMISTRY METHOD 05/29/2025 10:23 AM EDT [facility] Potassium 4.4 3.5 - 5.5 mmol/L [...] t [facility] [address] [place] [address], * (ABNORMAL) Complete blood count (05/29/2025 6:50 AM EDT) Pathologist [facility] WBC 3.4(L) 4.8 - 10.8 K/mcL LAB [...] HOSPITAL LAB Platelets 135 130 - 400 [facility] LAB HEMETOLOGY METHOD 05/29/2025 10:07 AM [facility] LAB MPV 12.0(H) 7.0 - 11.0 FL LAB HEMETOLOGY METHOD 05/29/2025 10:07 AM [facility] LAB NRBC 0.0 <1.0 % LAB HEMETOLOGY METHOD 05/29/2025 10:07 AM [facility] LAB NRBC Absolute 0.00 <0.10 [facility] LAB HEMETOLOGY METHOD 05/29/2025 10:07 AM EDT [facility] LAB Blood Venous blood specimen / Unknown Venipuncture / Unknown 05/29/2025 6:50 AM EDT 05/29/2025 9:14 AM EDT Harris Gross MD LAB BLOOD ORDERABLES Final Resul t [facility] [address] [place] [address], documented in this encounter Visit Diagnoses Diagnosis Essential (primary) hypertension Unspecified essential hypertension documented in this encounter Care Teams Bow Tacker Relationship Specialty Start Date End Date Harris Gross MD [address] [place] [address] [address] [place] [address] PCP - General Geriatric Medicine 02/13/25 documented as of this encounter
--- OUTSIDE RECORDS SUMMARY | 2025-06-27 15:10 | XMS_ITS | Encounter Summary ---
Author Organization [facility] Address [address] [place] [address] Care Team Providers Care Bundle Packer Name Role Phone Harris Gross MD Primary Care Provider [phone] Encounter Details Date Type Department Care Team (Late st Contact Info) Description 03/06/2025 Lab Requisition [facility] - Main Lab [address] [facility] [place] [address] Harris Gross MD [address] [place], [place] [id number] Altered mental status, unspecified; Dysuria Social History [...] reflex microscopic (03/06/2025 12:00 AM EDT) Specific [place] Urine 1.008 1.003 - 1.030 LAB URINALYSIS [...] 03/06/2025 10:34 AM [facility] Bilirubin, Urine Negative Negative LAB URINALYSIS - AUTOMATED METHOD 03/06/2025 10:34 AM [facility] Blood, Urine Negative Negative LAB URINALYSIS - AUTOMATED METHOD 03/06/2025 10:34 AM [facility] Urine Urine specimen obtained by clean catch procedure / Unknown 03/06/2025 03/06/2025 8:51 AM EDT us Harris Gross MD LAB URINE ORDERABLES Final Resul t [facility] [address] [place] [address], * Culture urine (03/06/2025 12:00 AM EDT) Culture, Urine <10,000 CFU/mL gram positive cocci, insignificant count, no further workup 03/07/2025 1:00 PM EDT [facility] Urine Urine specimen obtained by clean catch procedure / Unknown 03/06/2025 03/06/2025 8:51 AM EDT Harris Gross MD LAB MICROBIOLOGY - GENERAL ORDER ROEL Final Result [facility] [address] [place] [address], documented in this encounter Visit Diagnoses Diagnosis Altered mental status, unspecified Dysuria documented in this encounter Care Teams Bundle Packer Relationship Specialty Start Date End Date Harris Gross MD [address] [place] [address] [address] [place] [address] PCP - General Geriatric Medicine 02/13/25 documented as of this encounter
--- OUTSIDE RECORDS SUMMARY | 2025-06-27 15:10 | XMS_ITS | Encounter Summary ---
Author Organization [facility] Address [address] [place] [address] Care Team Providers Care Splitter Tender Name Role Phone Harris Gross MD Primary Care Provider [phone] Encounter Details Date Type Department Care Team (Late st Contact Info) Description 02/13/2025 Lab Requisition [facility] - Main Lab 299 [facility] [place] [address] Harris Gross MD [address] [place], [place] [id number] Vitamin D deficiency, unspecified; Gastrointestinal hemorrhage, unspecified; [...] * Vitamin B12 (02/13/2025 6:49 AM EDT) [facility] Vitamin B-12 391 250 - 900 pcg/mL LAB CHEMISTRY METHOD 02/13/2025 10:12 AM EDT [facility] Blood Venous blood specimen / Unknown Venipuncture / Unknown 02/13/2025 6:49 AM EDT 02/13/2025 8:56 AM EDT us Harris Gross MD LAB BLOOD ORDERABLES Final Resul t Performing Organization Address [facility]/ZIP Co de Phone Number [facility] [address] [place] [address], [place] [phone] * Vitamin D 25 hydroxy (02/13/2025 6:49 AM EDT) [facility] Vit D, 25-Hydroxy 57.4 30.0 - 80.0 ng/mL LAB CHEMISTRY METHOD 02/13/2025 11:18 AM EDT [facility] Blood Venous blood specimen / Unknown Venipuncture / Unknown 02/13/2025 6:49 AM EDT 02/13/2025 8:56 AM EDT us Harris Gross MD LAB BLOOD ORDERABLES Final Resul t [facility] [address] [place] [address], [place] [phone] * Thyroid stimulating hormone (02/13/2025 6:49 AM EDT) [facility] TSH 1.12 0.40 - 4.00 mcIU/mL LAB CHEMISTRY METHOD 02/13/2025 11:19 AM EDT [facility] Blood Venous blood specimen / Unknown Venipuncture / Unknown 02/13/2025 6:49 AM EDT 02/13/2025 8:56 AM EDT Harris Gross MD LAB BLOOD ORDERABLES Final Resul t [facility] [address] [place] [address], [place] [phone] * (ABNORMAL) Comprehensive metabolic panel (02/13/2025 6:49 [...] Resul t [facility] [address] [place] [address], * (ABNORMAL) Complete blood count (02/13/2025 6:49 [...] MD LAB BLOOD ORDERABLES Final Resul t [facility] [address] [place] [address], documented in this encounter Visit Diagnoses Diagnosis Vitamin D deficiency, unspecified Gastrointestinal hemorrhage, unspecified Aphagia Anorexia documented in this encounter Care Teams Splitter Tender Relationship Specialty Start Date End Date Harris Gross MD [address] [place] [address] [address] [place] [address] PCP - General Geriatric Medicine 02/13/25 documented as of this encounter
--- OUTSIDE RECORDS SUMMARY | 2025-06-27 15:10 | XMS_ITS | Encounter Summary ---
Author Organization [facility] Address [address] [place] [address] Care Team Providers Care Drive Away Driver Name Role Phone Harris Gross MD Primary Care Provider [phone] Encounter Details Date Type Department Care Team (Late st Contact Info) Description 06/06/2025 Lab Requisition [facility] - Main Lab 299 [facility] [place] [address] Harris Gross MD [address] [place], [place] [phone] Essential (primary) hypertension; Chronic obstructive pulmonary disease, [...] mmol/L LAB CHEMISTRY METHOD 06/09/2025 11:53 AM [facility] Potassium 4.4 3.5 - 5.5 mmol/L LAB CHEMISTRY METHOD 06/09/2025 11:53 AM [facility] Chloride 104 96 - 110 mmol/L LAB CHEMISTRY METHOD 06/09/2025 11:53 AM [facility] CO2 29 21 - 32 mmol/L LAB CHEMISTRY METHOD 06/09/2025 11:53 AM [facility] Anion Gap 5 3 - 11 LAB CHEMISTRY METHOD 06/09/2025 11:53 AM [facility] Glucose 73 70 - 100 mg/dL LAB CHEMISTRY METHOD 06/09/2025 11:53 AM [facility] BUN 26(H) 5 - 25 mg/dL LAB CHEMISTRY METHOD 06/09/2025 11:53 AM [facility] Creatinine 0.93 0.50 - 1.10 mg/dL LAB CHEMISTRY METHOD 06/09/2025 11:53 AM [facility] eGFR 61 >=60 mL/min/1. 73m2 LAB CHEMISTRY METHOD 06/09/2025 11:53 AM [facility] Comment:Calculation based on the Chronic Kidney Disease Epidemiology Collaboration (CKD-EPI) equation refit without adjustment for race. BUN/Creatinine Ratio 28.0 LAB CHEMISTRY METHOD 06/09/2025 11:53 AM [facility] Calcium 9.1 8.5 - 10.5 mg/dL LAB CHEMISTRY METHOD 06/09/2025 11:53 AM [facility] Blood Venous blood specimen / Unknown Venipuncture / Unknown 06/09/2025 4:55 AM EDT 06/09/2025 10:20 AM EDT Harris Gross MD LAB BLOOD ORDERABLES Final Resul t [facility] [address] [place] [address], * (ABNORMAL) Complete blood count (06/09/2025 4:55 AM EDT) WBC 3.1(L) 4.8 - 10.8 K/mcL LAB HEMETOLOGY METHOD 06/09/2025 11:14 AM EDT [facility] RBC 2.80(L) 3.80 - 4.80 M/mcL LAB HEMETOLOGY METHOD 06/09/2025 11:14 AM EDT [facility] Hemoglobin 8.0(L) 11.5 - 16.0 g/dL LAB HEMETOLOGY METHOD 06/09/2025 11:14 AM [facility] Hematocrit 26.2(L) 35.0 - 47.0 % LAB HEMETOLOGY METHOD 06/09/2025 11:14 AM EDT [facility] MCV 94.9 79.0 - 98.0 FL LAB HEMETOLOGY METHOD 06/09/2025 11:14 AM EDT [facility] MCH 29.0 27.0 - 32.0 pcg LAB HEMETOLOGY METHOD 06/09/2025 11:14 AM [facility] MCHC 30.5(L) 32.0 - 37.0 g/dL LAB HEMETOLOGY METHOD 06/09/2025 11:14 AM EDT [facility] RDW 18.4(H) 11.0 - 15.0 % LAB HEMETOLOGY METHOD 06/09/2025 11:14 AM EDT [facility] Platelets 130 130 - 400 K/mcL LAB HEMETOLOGY METHOD 06/09/2025 11:14 AM [facility] MPV 12.1(H) 7.0 - 11.0 FL LAB HEMETOLOGY METHOD 06/09/2025 11:14 AM EDT [facility] NRBC 0.0 <1.0 % LAB HEMETOLOGY METHOD 06/09/2025 11:14 AM EDT [facility] NRBC Absolute 0.00 <0.10 K/mcL LAB HEMETOLOGY METHOD 06/09/2025 11:14 AM EDT [facility] Blood Venous blood specimen / Unknown Venipuncture / Unknown 06/09/2025 4:55 AM EDT 06/09/2025 10:20 AM EDT us Harris Gross MD LAB BLOOD ORDERABLES Final Resul t [facility] [address] [place] [address], documented in this encounter Visit Diagnoses Diagnosis Essential (primary) hypertension Unspecified essential hypertension Chronic obstructive pulmonary disease, unspecified (CMS/HCC V24, CMS/HCC V28) documented in this encounter Care Teams Drive Away Driver Relationship Specialty Start Date End Date Harris Gross MD [address] [place] [address] [address] [place] [address] PCP - General Geriatric Medicine 02/13/25 documented as of this encounter
--- OUTSIDE RECORDS SUMMARY | 2025-06-27 15:10 | XMS_ITS | Encounter Summary ---
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 Social History Tobacco Use [...] FOLATE Routine 02/19/2025 5:09 AM EDT 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 documented in this encounter Results * (ABNORMAL) Folate (02/19/2025 5:09 AM EDT) Folate >20.0(H) 2.8 - 17.0 ng/ml LAB CHEMISTRY METHOD 02/19/2025 8:26 AM EDT [facility] Blood Venous blood specimen / Unknown Venipuncture / Unknown 02/19/2025 5:09 AM EDT 02/19/2025 6:45 AM EDT Harris Gross MD LAB BLOOD ORDERABLES Final Resul t [facility]) [facility] [address] [place] [address], documented in this encounter Visit Diagnoses Diagnosis Other retirement (current) drug therapy documented in this encounter Care Teams Storage Solutions Architect Relationship Specialty Start Date End Date Harris Gross MD [address] [place] [address] [address] [place] [address] PCP - General Geriatric Medicine 02/13/25 documented as of this encounter
--- OUTSIDE RECORDS SUMMARY | 2025-06-27 15:10 | XMS_ITS | Encounter Summary ---
Author Organization [facility] Address [address] [place] [address] Care Team Providers Care Resolution Specialist Name Role Phone Harris Gross MD Primary Care Provider [phone] Encounter Details Date Type Department Care Team (Late st Contact Info) Description 06/13/2025 Lab Requisition [facility] - Main Lab 299 [facility] [place] [address] Harris Gross MD [address] [place], [place] [phone] Essential (primary) hypertension; Chronic obstructive pulmonary disease, [...] mmol/L LAB CHEMISTRY METHOD 06/16/2025 10:31 AM [facility] Potassium 4.3 3.5 - 5.5 mmol/L LAB CHEMISTRY METHOD 06/16/2025 10:31 AM [facility] Chloride 104 96 - 110 mmol/L LAB CHEMISTRY METHOD 06/16/2025 10:31 AM [facility] CO2 28 21 - 32 mmol/L LAB CHEMISTRY METHOD 06/16/2025 10:31 AM [facility] Anion Gap 6 3 - 11 LAB CHEMISTRY METHOD 06/16/2025 10:31 AM [facility] Glucose 77 70 - 100 mg/dL LAB CHEMISTRY METHOD 06/16/2025 10:31 AM [facility] BUN 27(H) 5 - 25 mg/dL LAB CHEMISTRY METHOD 06/16/2025 10:31 AM [facility] Creatinine 0.89 0.50 - 1.10 mg/dL LAB CHEMISTRY METHOD 06/16/2025 10:31 AM [facility] eGFR 64 >=60 mL/min/1. 73m2 LAB CHEMISTRY METHOD 06/16/2025 10:31 AM [facility] Comment:Calculation based on the Chronic Kidney Disease Epidemiology Collaboration (CKD-EPI) equation refit without adjustment for race. BUN/Creatinine Ratio 30.3 LAB CHEMISTRY METHOD 06/16/2025 10:31 AM [facility] Calcium 9.3 8.5 - 10.5 mg/dL LAB CHEMISTRY METHOD 06/16/2025 10:31 AM [facility] Blood Venous blood specimen / Unknown Venipuncture / Unknown 06/16/2025 5:01 AM EDT 06/16/2025 9:03 AM EDT Harris Gross MD LAB BLOOD ORDERABLES Final Resul t [facility] [address] [place] [address], * (ABNORMAL) Complete blood count (06/16/2025 5:01 AM EDT) WBC 3.2(L) 4.8 - 10.8 K/mcL LAB HEMETOLOGY METHOD 06/16/2025 10:06 AM EDT [facility] RBC 2.80(L) 3.80 - 4.80 M/mcL LAB HEMETOLOGY METHOD 06/16/2025 10:06 AM EDT [facility] Hemoglobin 8.3(L) 11.5 - 16.0 g/dL LAB HEMETOLOGY METHOD 06/16/2025 10:06 AM [facility] Hematocrit 27.0(L) 35.0 - 47.0 % LAB HEMETOLOGY METHOD 06/16/2025 10:06 AM EDT [facility] MCV 95.7 79.0 - 98.0 FL LAB HEMETOLOGY METHOD 06/16/2025 10:06 AM EDT [facility] MCH 29.4 27.0 - 32.0 pcg LAB HEMETOLOGY METHOD 06/16/2025 10:06 AM [facility] MCHC 30.7(L) 32.0 - 37.0 g/dL LAB HEMETOLOGY METHOD 06/16/2025 10:06 AM EDT [facility] RDW 17.9(H) 11.0 - 15.0 % LAB HEMETOLOGY METHOD 06/16/2025 10:06 AM EDT [facility] Platelets 119(L) 130 - 400 K/mcL LAB HEMETOLOGY METHOD 06/16/2025 10:06 AM [facility] MPV 12.1(H) 7.0 - 11.0 FL LAB HEMETOLOGY METHOD 06/16/2025 10:06 AM EDT [facility] NRBC 0.0 <1.0 % LAB HEMETOLOGY METHOD 06/16/2025 10:06 AM EDT [facility] NRBC Absolute 0.00 <0.10 K/mcL LAB HEMETOLOGY METHOD 06/16/2025 10:06 AM EDT [facility] Blood Venous blood specimen / Unknown Venipuncture / Unknown 06/16/2025 5:01 AM EDT 06/16/2025 9:03 AM EDT us Harris Gross MD LAB BLOOD ORDERABLES Final Resul t [facility] [address] [place] [address], documented in this encounter Visit Diagnoses Diagnosis Essential (primary) hypertension Unspecified essential hypertension Chronic obstructive pulmonary disease, unspecified (CMS/HCC V24, CMS/HCC V28) documented in this encounter Care Teams Resolution Specialist Relationship Specialty Start Date End Date Harris Gross MD [address] [place] [address] [address] [place] [address] PCP - General Geriatric Medicine 02/13/25 documented as of this encounter
--- OUTSIDE RECORDS SUMMARY | 2025-06-27 15:10 | XMS_ITS | Encounter Summary ---
Author Organization [facility] Address [address] [place] [address] Care Team Providers Care Head Knitting Machine Fixer Name Role Phone Harris Gross MD Primary Care Provider [phone] Encounter Details Date Type Department Care Team (Late st Contact Info) Description 06/21/[address] [facility] - Main Lab 299 [facility] [place] [address] Harris Gross MD 300 [facility] [address] [place] [address] Essential (primary) hypertension; Chronic obstructive pulmonary disease, [...] documented as of this encounter Visit Diagnoses Diagnosis Essential (primary) hypertension Unspecified essential hypertension Chronic obstructive pulmonary disease, unspecified (CMS/HCC V24, CMS/HCC V28) documented in this encounter Care Teams Head Knitting Machine Fixer Relationship Specialty Start Date End Date Harris Gross MD [address] [facility] [address] [place], [place] [phone] PCP - General Geriatric Medicine 02/13/25 documented as of this encounter
--- OUTSIDE RECORDS SUMMARY | 2025-06-27 15:10 | XMS_ITS | Encounter Summary ---
Author Organization [facility] Address [address] [place] [address] Care Team Providers Care Insole And Heel Stiffener Name Role Phone Harris Gross MD Primary Care Provider [phone] Encounter Details Date Type Department Care Team (Late st Contact Info) Description 05/30/2025 Lab Requisition [facility] - Main Lab 299 [facility] [place] [address] Harris Gross MD [address] [place], [place] [phone] Essential (primary) hypertension; Chronic obstructive pulmonary disease, [...] mmol/L LAB CHEMISTRY METHOD 06/02/2025 12:46 PM [facility] Potassium 4.0 3.5 - 5.5 mmol/L LAB CHEMISTRY METHOD 06/02/2025 12:46 PM [facility] Chloride 106 96 - 110 mmol/L LAB CHEMISTRY METHOD 06/02/2025 12:46 PM [facility] CO2 27 21 - 32 mmol/L LAB CHEMISTRY METHOD 06/02/2025 12:46 PM [facility] Anion Gap 7 3 - 11 LAB CHEMISTRY METHOD 06/02/2025 12:46 PM [facility] Glucose 69(L) 70 - 100 mg/dL LAB CHEMISTRY METHOD 06/02/2025 12:46 PM [facility] BUN 21 5 - 25 mg/dL LAB CHEMISTRY METHOD 06/02/2025 12:46 PM [facility] Creatinine 0.86 0.50 - 1.10 mg/dL LAB CHEMISTRY METHOD 06/02/2025 12:46 PM [facility] eGFR 67 >=60 mL/min/1. 73m2 LAB CHEMISTRY METHOD 06/02/2025 12:46 PM [facility] Comment:Calculation based on the Chronic Kidney Disease Epidemiology Collaboration (CKD-EPI) equation refit without adjustment for race. BUN/Creatinine Ratio 24.4 LAB CHEMISTRY METHOD 06/02/2025 12:46 PM [facility] Calcium 9.0 8.5 - 10.5 mg/dL LAB CHEMISTRY METHOD 06/02/2025 12:46 PM [facility] Blood Venous blood specimen / Unknown Venipuncture / Unknown 06/02/2025 4:54 AM EDT 06/02/2025 10:56 AM EDT Harris Gross MD LAB BLOOD ORDERABLES Final Resul t [facility] [address] [place] [address], * (ABNORMAL) Complete blood count (06/02/2025 4:54 AM EDT) WBC 3.1(L) 4.8 - 10.8 K/mcL LAB HEMETOLOGY METHOD 06/02/2025 1:[address] [facility] RBC 2.70(L) 3.80 - 4.80 M/mcL LAB HEMETOLOGY METHOD 06/02/2025 1:[address] [facility] Hemoglobin 7.8(L) 11.5 - 16.0 g/dL LAB [facility]ETOLOGY [facility] Hematocrit 25.7(L) 35.0 - 47.0 % LAB HEMETOLOGY METHOD [facility]02[facility]25 [facility] MCV 95.9 79.0 - 98.0 FL LAB HEMETOLOGY METHOD 06/02/2025 1:[address] [facility] MCH 29.1 27.0 - 32.0 pcg LAB HEMETOLOGY METHOD 06/02/2025 1:02 PM [facility] MCHC 30.4(L) 32.0 - 37.0 g/dL LAB HEMETOLOGY METHOD 06/02/2025 1:[address] [facility] RDW 17.8(H) 11.0 - 15.0 % LAB HEMETOLOGY METHOD 06/02/2025 1:[address] [facility] Platelets 109(L) 130 - 400 K/mcL LAB HEMETOLOGY METHOD [facility]/02[facility]2025 [facility] MPV 12.3(H) 7.0 - 11.0 FL LAB HEMETOLOGY METHOD 06/02/2025 1:[address] [facility] NRBC 0.0 <1.0 % LAB HEMETOLOGY METHOD 06/02/2025 1:[address] [facility] NRBC Absolute 0.00 <0.10 K/mcL LAB HEMETOLOGY METHOD 06/02/2025 1:[address] [facility] Blood Venous blood specimen / Unknown Venipuncture / Unknown 06/02/2025 4:54 AM EDT 06/02/2025 10:56 AM EDT us Harris Gross MD LAB BLOOD ORDERABLES Final Resul t [facility] [address] [place] [address], documented in this encounter Visit Diagnoses Diagnosis Essential (primary) hypertension Unspecified essential hypertension Chronic obstructive pulmonary disease, unspecified (CMS/HCC V24, CMS/HCC V28) documented in this encounter Care Teams Insole And Heel Stiffener Relationship Specialty Start Date End Date Harris Gross MD [address] [place] [address] [address] [place] [address] PCP - General Geriatric Medicine 02/13/25 documented as of this encounter
--- OUTSIDE RECORDS SUMMARY | 2025-06-27 15:10 | XMS_ITS | Clinical Summary ---
Author Organization [address] Address [address] [place] [address] Phone Care Team Providers Care Button Riveter Name Role Phone Harris Gross MD Primary Care Provider [phone] Encounters Date Type Department Care Team Description 06/21/2025 Lab Requisition [facility] Lab [address] [place] [phone] Harris Gross MD Essential (primary) hypertension; Chronic obstructive pulmonary disease, unspecified (CMS/HCC V24, CMS/HCC V28) 06/13/2025 Lab Requisition [facility] Lab [address] [place] [phone] Harris Gross MD Essential (primary) hypertension; Chronic obstructive pulmonary disease, unspecified (CMS/HCC V24, CMS/HCC V28) 06/06/2025 Lab Requisition [facility] Lab [address] [place] [phone] Harris Gross MD Essential (primary) hypertension; Chronic obstructive pulmonary disease, unspecified (CMS/HCC V24, CMS/HCC V28) 05/30/2025 Lab Requisition [facility] Lab [address] [place] [phone] Harris Gross MD Essential (primary) hypertension; Chronic obstructive pulmonary disease, unspecified (CMS/HCC V24, CMS/HCC V28) 05/30/2025 Lab Requisition [facility] Lab [address] [place] [phone] Harris Gross MD Frequency of micturition 05/28/2025 Lab Requisition [facility] Lab [address] [place] [phone] Harris Gross MD Essential (primary) hypertension 05/25/2025 Lab Requisition [facility] Lab [address] [place] [phone] Harris Gross MD Essential (primary) hypertension; Chronic obstructive pulmonary disease, unspecified (CMS/HCC V24, CMS/HCC V28); Gastro-esophageal reflux disease without esophagitis; Anemia, unspecified 05/22/2025 Lab Requisition [facility] Lab [address] [place] [phone] Harris Gross MD Essential (primary) hypertension; Anemia, unspecified 05/21/2025 Lab Requisition [facility] Lab [address] [place] [phone] Harris Gross MD Essential (primary) hypertension; Chronic obstructive pulmonary disease, unspecified (CMS/HCC V24, CMS/HCC V28); Dizziness and giddiness from Last 3 [...] Screening 10/03/2023 Depression Screening 09/04/2024 COVID-19 Vaccine ( season) 2025 06/29/2021, 10/30/2020 Influenza Vaccine (#1) [...] LAB HEMETOLOGY METHOD 06/16/2025 10:06 AM [facility] RBC 2.80(L) 3.80 - 4.80 M/mcL LAB HEMETOLOGY METHOD 06/16/2025 10:06 AM [facility] Hemoglobin 8.3(L) 11.5 - 16.0 g/dL LAB HEMETOLOGY METHOD 06/16/2025 10:06 AM [facility] Hematocrit 27.0(L) 35.0 - 47.0 % LAB HEMETOLOGY METHOD 06/16/2025 10:06 AM [facility] MCV 95.7 79.0 - 98.0 FL LAB HEMETOLOGY METHOD 06/16/2025 10:06 AM EDT [facility] MCH 29.4 27.0 - 32.0 pcg LAB HEMETOLOGY METHOD 06/16/2025 10:06 AM EDT [facility] MCHC 30.7(L) 32.0 - 37.0 g/dL LAB HEMETOLOGY METHOD 06/16/2025 10:06 AM EDT [facility] RDW 17.9(H) 11.0 - 15.0 % LAB HEMETOLOGY METHOD 06/16/2025 10:06 AM T [facility] Platelets 119(L) 130 - 400 K/mcL LAB HEMETOLOGY METHOD 06/16/2025 10:06 AM T [facility] MPV 12.1(H) 7.0 - 11.0 FL LAB HEMETOLOGY METHOD 06/16/2025 10:06 AM EDT [facility] NRBC 0.0 <1.0 % LAB HEMETOLOGY METHOD 06/16/2025 10:06 AM [facility] NRBC Absolute 0.00 <0.10 K/mcL LAB HEMETOLOGY METHOD 06/16/2025 10:06 AM [facility] Blood Venous blood specimen / Unknown Venipuncture / Unknown 06/16/2025 5:01 AM EDT 06/16/2025 9:03 AM EDT us Harris Gross MD LAB BLOOD ORDERABLES Final Resul t [facility] [address] [place] [address], * (ABNORMAL) Basic metabolic panel (06/16/2025 5:01 AM EDT) Only the most recent of6 resultswithin the time period is included. [facility] Sodium 138 133 - 145 mmol/L LAB CHEMISTRY METHOD 06/16/2025 10:31 AM [facility] Potassium 4.3 3.5 - 5.5 mmol/L LAB CHEMISTRY METHOD 06/16/2025 10:31 AM [facility] Chloride 104 96 - 110 mmol/L LAB CHEMISTRY METHOD 06/16/2025 10:31 AM [facility] CO2 28 21 - 32 mmol/L LAB CHEMISTRY METHOD 06/16/2025 10:31 AM [facility] Anion Gap 6 3 - 11 LAB CHEMISTRY METHOD 06/16/2025 10:31 AM [facility] Glucose 77 70 - 100 mg/dL LAB CHEMISTRY METHOD 06/16/2025 10:31 AM [facility] BUN 27(H) 5 - 25 mg/dL LAB CHEMISTRY METHOD 06/16/2025 10:31 AM [facility] Creatinine 0.89 0.50 - 1.10 mg/dL LAB CHEMISTRY METHOD 06/16/2025 10:31 AM [facility] eGFR 64 >=60 mL/min/1. 73m2 LAB CHEMISTRY METHOD 06/16/2025 10:31 AM [facility] Comment:Calculation based on the Chronic Kidney Disease Epidemiology Collaboration (CKD-EPI) equation refit without adjustment for race. BUN/Creatinine Ratio 30.3 LAB CHEMISTRY METHOD 06/16/2025 10:31 AM [facility] Calcium 9.3 8.5 - 10.5 mg/dL LAB CHEMISTRY METHOD 06/16/2025 10:31 AM [facility] Blood Venous blood specimen / Unknown Venipuncture / Unknown 06/16/2025 5:01 AM EDT 06/16/2025 9:03 AM EDT us Harris Gross MD LAB BLOOD ORDERABLES Final Resul t [facility] [address] [place] [address], [place] [phone] * Urinalysis with reflex microscopic (05/29/2025 8:00 AM EDT) Specific [place] Urine 1.016 1.003 - 1.030 LAB URINALYSIS - AUTOMATED METHOD 05/30/2025 8:36 AM [facility] pH, Urine 5.5 5.0 - 8.0 pH LAB URINALYSIS - AUTOMATED METHOD 05/30/2025 8:36 AM [facility] Leukocytes, Urine Negative Negative LAB URINALYSIS - AUTOMATED METHOD 05/30/2025 8:36 AM [facility] Nitrite, Urine Negative Negative LAB URINALYSIS - AUTOMATED METHOD 05/30/2025 8:36 AM [facility] Protein, Urine Negative <=Trace mg/dL LAB URINALYSIS - AUTOMATED METHOD 05/30/2025 8:36 AM [facility] Glucose, Urine Negative Negative mg/dL LAB URINALYSIS - AUTOMATED METHOD 05/30/2025 8:36 AM [facility] Ketones, Urine Negative Negative mg/dL LAB URINALYSIS - AUTOMATED METHOD 05/30/2025 8:36 AM [facility] Urobilinogen, Urine 0.2 0.2 - 1.0 mg/dL LAB URINALYSIS - AUTOMATED METHOD 05/30/2025 8:36 AM [facility] Bilirubin, Urine Negative Negative LAB URINALYSIS - AUTOMATED METHOD 05/30/2025 8:36 AM [facility] Blood, Urine Negative Negative LAB URINALYSIS - AUTOMATED METHOD 05/30/2025 8:36 AM [facility] Urine Urine specimen obtained by clean catch procedure / Unknown Non-blood Collection / Unknown 05/29/2025 8:00 AM EDT 05/30/2025 8:05 AM EDT us Harris Gross MD LAB URINE ORDERABLES Final Resul t Performing Organization Address City/[facility]/ZIP Co de Phone Number [facility] [address] [place] [address], [place] [phone] * (ABNORMAL) Culture urine (05/29/2025 8:00 AM EDT) Culture, Urine 10,000-49,000 CFU/mL Streptococcus viridans group(A) 06/03/2025 8:59 AM EDT [facility] Comment: Susceptibility testing not routinely performed. If further therapeutic information is required, please consult an infectious disease specialist. The organism value for this result has been updated. These results have been appended to the previously preliminary verified report. Urine Urine specimen obtained by clean catch procedure / Unknown Non-blood Collection / Unknown 05/29/2025 8:00 AM EDT 05/30/2025 8:05 AM EDT Narrative [facility] - 06/03/2025 8:59 AM EDT Additional colony types present in insignificant amounts. us Harris Gross MD LAB MICROBIOLOGY - GENERAL ORDER ROEL Final Result Performing Organization Address [facility] Co de Phone Number [facility] [address] [place] [address], [place] [phone] * Iron and TIBC (05/26/2025 4:52 AM EDT) Iron 88 40 - 150 mcg/dL LAB CHEMISTRY METHOD 05/26/2025 12:56 PM EDT [facility] TIBC 358 250 - 450 mcg/dL LAB CHEMISTRY METHOD 05/26/2025 12:56 PM EDT [facility] Iron Saturation 25 15 - 50 % LAB CHEMISTRY METHOD 05/26/2025 12:56 PM EDT [facility] Blood Venous blood specimen / Unknown Venipuncture / Unknown 05/26/2025 4:52 AM EDT 05/26/2025 10:18 AM EDT us Harris Gross MD LAB BLOOD ORDERABLES Final Resul t Performing Organization Address City/[facility]/ZIP Co de Phone Number [facility] [address] [place] [address], [place] [phone] * Ferritin (05/26/2025 4:52 AM EDT) [facility] Ferritin 23 8 - 252 ng/mL LAB CHEMISTRY METHOD 05/26/2025 12:57 PM EDT [facility] Blood Venous blood specimen / Unknown Venipuncture / Unknown 05/26/2025 4:52 AM EDT 05/26/2025 10:18 AM EDT us Harris Gross MD LAB BLOOD ORDERABLES Final Resul t Performing Organization Address City/[facility]/ZIP Co de Phone Number [facility] [address] [place] [address], [place] [phone] * (ABNORMAL) Comprehensive metabolic panel (05/21/2025 4:56 AM EDT) [facility] Sodium 138 133 - 145 mmol/L LAB CHEMISTRY METHOD 05/21/2025 11:07 AM EDT [facility] Potassium 4.2 3.5 - 5.5 mmol/L LAB CHEMISTRY METHOD 05/21/2025 11:07 AM EDT [facility] Chloride 104 96 - 110 mmol/L LAB CHEMISTRY METHOD 05/21/2025 11:07 AM EDT [facility] CO2 29 21 - 32 mmol/L LAB CHEMISTRY METHOD 05/21/2025 11:07 AM EDT [facility] Anion Gap 5 3 - 11 LAB CHEMISTRY METHOD 05/21/2025 11:07 AM EDT [facility] Glucose 74 70 - 100 mg/dL LAB CHEMISTRY METHOD 05/21/2025 11:07 AM [facility] BUN 28(H) 5 - 25 mg/dL LAB CHEMISTRY METHOD 05/21/2025 11:07 AM [facility] Creatinine 0.96 0.50 - 1.10 mg/dL LAB CHEMISTRY METHOD 05/21/2025 11:07 AM [facility] eGFR 58(L) >=60 mL/min/1. 73m2 LAB CHEMISTRY METHOD 05/21/2025 11:07 AM [facility] Comment:Calculation based on the Chronic Kidney Disease Epidemiology Collaboration (CKD-EPI) equation refit without adjustment for race. BUN/Creatinine Ratio 29.2 LAB CHEMISTRY METHOD 05/21/2025 11:07 AM [facility] Calcium 8.7 8.5 - 10.5 mg/dL LAB CHEMISTRY METHOD 05/21/2025 11:07 AM [facility] AST (SGOT) 17 10 - 42 unit/L LAB CHEMISTRY METHOD 05/21/2025 11:07 AM [facility] ALT (SGPT) 13 10 - 60 unit/L LAB CHEMISTRY METHOD 05/21/2025 11:07 AM [facility] Alkaline Phosphatase 86 42 - 121 unit/L LAB CHEMISTRY METHOD 05/21/2025 11:07 AM [facility] Total Protein 6.1 6.0 - 8.0 g/dL LAB CHEMISTRY METHOD 05/21/2025 11:07 AM [facility] Albumin 3.4 3.2 - 5.0 g/dL LAB CHEMISTRY METHOD 05/21/2025 11:07 AM [facility] Total Bilirubin 0.2 0.0 - 1.4 mg/dL LAB CHEMISTRY METHOD 05/21/2025 11:07 AM [facility] Blood Venous blood specimen / Unknown Venipuncture / Unknown 05/21/2025 4:56 AM EDT 05/21/2025 10:01 AM EDT us Harris Gross MD LAB BLOOD ORDERABLES Final Resul t [facility] LAB [address] [place] [address], [place] [phone] from Last 3 Months Insurance MEDICARE [facility] Advance Directives Documents on File Type Date Recorded Patient Access Services Assistant Expl anation Health Care Decision (hx) 09/07/2023 HE ALTH CARE PROXY Health Care Decision (hx) 03/03/2023 HE ALTH CARE PROXY Care Teams Button Riveter Relationship Specialty Start Date End Date Harris Gross MD [address] [facility] [address] [place] [address] PCP - General Geriatric Medicine 02/13/25
--- OUTSIDE RECORDS SUMMARY | 2025-06-27 15:10 | XMS_ITS | Encounter Summary ---
Author Organization [facility] Address [address] [place] [address] Care Team Providers Care Leather Production Artisan Name Role Phone Harris Gross MD Primary Care Provider [phone] Encounter Details Date Type Department Care Team (Late st Contact Info) Description 05/30/2025 Lab Requisition [facility] - Main Lab [address] [facility] [place] [address] Harris Gross MD [address] [place], [place] [id number] Frequency of micturition Social History Tobacco Use [...] reflex microscopic (05/29/2025 8:00 AM EDT) Specific [place] Urine 1.016 1.003 - 1.030 LAB URINALYSIS - AUTOMATED METHOD 05/30/2025 8:36 AM [facility] pH, Urine 5.5 5.0 - 8.0 pH LAB URINALYSIS - AUTOMATED METHOD 05/30/2025 8:36 AM [facility] Leukocytes, Urine Negative Negative LAB URINALYSIS - AUTOMATED METHOD 05/30/2025 8:36 AM [facility] Nitrite, Urine Negative Negative LAB URINALYSIS - AUTOMATED METHOD 05/30/2025 8:36 AM [facility] Protein, Urine Negative <=Trace mg/dL LAB URINALYSIS - AUTOMATED METHOD 05/30/2025 8:36 AM [facility] Glucose, Urine Negative Negative mg/dL LAB URINALYSIS - AUTOMATED METHOD 05/30/2025 8:36 AM [facility] Ketones, Urine Negative Negative mg/dL LAB URINALYSIS - AUTOMATED METHOD 05/30/2025 8:36 AM [facility] Urobilinogen, Urine 0.2 0.2 - 1.0 mg/dL LAB URINALYSIS - AUTOMATED METHOD 05/30/2025 8:36 AM [facility] Bilirubin, Urine Negative Negative LAB URINALYSIS - AUTOMATED METHOD 05/30/2025 8:36 AM [facility] Blood, Urine Negative Negative LAB URINALYSIS - AUTOMATED METHOD 05/30/2025 8:36 AM [facility] Urine Urine specimen obtained by clean catch procedure / Unknown Non-blood Collection / Unknown 05/29/2025 8:00 AM EDT 05/30/2025 8:05 AM EDT us Harris Gross MD LAB URINE ORDERABLES Final Resul t [facility] [address] [place] [address], * (ABNORMAL) Culture urine (05/29/2025 8:00 AM EDT) Culture, Urine 10,000-49,000 CFU/mL Streptococcus viridans group(A) 06/03/2025 8:59 AM EDT [facility] Comment: Susceptibility testing not routinely performed. If further therapeutic information is required, please consult an infectious disease specialist. The organism value for this result has been updated. These results have been appended to the previously preliminary verified report. Urine Urine specimen obtained by clean catch procedure / Unknown Non-blood Collection / Unknown 05/29/2025 8:00 AM EDT 05/30/2025 8:05 AM EDT Narrative [facility] - 06/03/2025 8:59 AM EDT Additional colony types present in insignificant amounts. Harris Gross MD LAB MICROBIOLOGY - GENERAL ORDER ROEL Final Result [facility] [address] [place] [address], documented in this encounter Visit Diagnoses Diagnosis Frequency of micturition Urinary frequency documented in this encounter Care Teams Leather Production Artisan Relationship Specialty Start Date End Date Harris Gross MD [address] [place] [address] [address] [place] [address] PCP - General Geriatric Medicine 02/13/25 documented as of this encounter
== END 2025-06-27 14:25 | disposition home or self-care (01) ==
LOC: HO.HMCH 13:08
PROVIDERS: PCP Internal Medicine; Visit Provider Nurse Practitioner Family
DX: R55 Syncope and collapse (principal)

== ENCOUNTER → 2025-06-27 13:07 | Outpatient (BNVA) | payer MEDICARE, OTHER, SELFPAY | PROVIDERS: PCP Internal Medicine; Visit Provider Nurse Practitioner Family | DX: R55 Syncope and collapse (principal) | CPT/HCPCS: 99212 ==

== ENCOUNTER 2025-07-03 17:48 | Outpatient (REF) | payer MEDICARE, OTHER, SELFPAY ==
--- OUTSIDE RECORDS SUMMARY | 2025-07-03 18:40 | XMS_ITS | Encounter Summary ---
Author Organization [facility] Address [address] [place] [address] Care Team Providers Care Electrotyper Name Role Phone Harris Gross MD Primary Care Provider [phone] Encounter Details Date Type Department Care Team (Late st Contact Info) Description 05/21/2025 Lab Requisition [facility] - Main Lab [address] [facility] [place] [address] Harris Gross MD [address] [place], [place] [id number] Essential (primary) hypertension; Chronic obstructive pulmonary disease, [...] LAB CHEMISTRY METHOD 05/21/2025 11:07 AM EDT [facility] Alkaline Phosphatase 86 42 - 121 unit/L LAB CHEMISTRY METHOD 05/21/2025 11:07 AM EDT [facility] Total Protein 6.1 6.0 - 8.0 g/dL LAB CHEMISTRY METHOD 05/21/2025 11:07 AM [facility] Albumin 3.4 3.2 - 5.0 g/dL LAB CHEMISTRY METHOD 05/21/2025 11:07 AM T [facility] Total Bilirubin 0.2 0.0 - 1.4 mg/dL LAB CHEMISTRY METHOD 05/21/2025 11:07 AM [facility] Blood Venous blood specimen / Unknown Venipuncture / Unknown 05/21/2025 4:56 AM EDT 05/21/2025 10:01 AM EDT us Harris Gross MD LAB BLOOD ORDERABLES Final Resul t [facility] [address] [place] [address], * (ABNORMAL) Complete blood count (05/21/2025 4:56 AM EDT) WBC 3.1(L) 4.8 - 10.8 K/[facility] LAB HEMETOLOGY METHOD 05/21/2025 10:[facility] RBC 2.50(L) 3.80 - 4.80 M/mcL LAB HEMETOLOGY METHOD 05/21/2025 10:[facility] Hemoglobin 6.9(L) 11.5 - 16.0 g/dL LAB HEMETOLOGY METHOD 05/21/2025 10:50 AM [facility] Hematocrit 22.8(L) 35.0 - 47.0 % LAB HEMETOLOGY METHOD 05/21/2025 10:50 AM EDT [facility] MCV 91.2 79.0 - 98.0 FL LAB HEMETOLOGY METHOD 05/21/2025 10:50 AM EDT [facility] MCH 27.6 27.0 - 32.0 pcg LAB HEMETOLOGY METHOD 05/21/2025 10:50 AM EDT [facility] MCHC 30.3(L) 32.0 - 37.0 g/dL LAB HEMETOLOGY METHOD 05/21/2025 10:50 AM EDT [facility] RDW 14.9 11.0 - 15.0 % LAB HEMETOLOGY METHOD 05/21/2025 10:50 AM EDT [facility] Platelets 149 130 - 400 K/mcL LAB HEMETOLOGY METHOD 05/21/2025 10:50 AM EDT [facility] MPV 11.7(H) 7.0 - 11.0 FL LAB HEMETOLOGY METHOD 05/21/2025 10:50 AM EDT [facility] NRBC 0.0 <1.0 % LAB HEMETOLOGY METHOD 05/21/2025 10:50 AM EDT [facility] NRBC Absolute 0.00 <0.10 K/mcL LAB HEMETOLOGY METHOD 05/21/2025 10:50 AM EDT [facility] Blood Venous blood specimen / Unknown Venipuncture / Unknown 05/21/2025 4:56 AM EDT 05/21/2025 10:01 AM EDT us Harris Gross MD LAB BLOOD ORDERABLES Final Resul t [facility] [address] [place] [address], documented in this encounter Visit Diagnoses Diagnosis Essential (primary) hypertension Unspecified essential hypertension Chronic obstructive pulmonary disease, unspecified (CMS/HCC V24, CMS/HCC V28) Dizziness and giddiness documented in this encounter Care Teams Electrotyper Relationship Specialty Start Date End Date Harris Gross MD [address] [place] [address] [address] [place] [address] PCP - General Geriatric Medicine 02/13/25 documented as of this encounter
--- OUTSIDE RECORDS SUMMARY | 2025-07-03 18:40 | XMS_ITS | Encounter Summary ---
Author Organization [facility] Address [address] [place] [address] Care Team Providers Care University Registrar Name Role Phone Harris Gross MD Primary Care Provider [phone] Encounter Details Date Type Department Care Team (Late st Contact Info) Description 03/06/2025 Lab Requisition [facility] - Main Lab [address] [facility] [email or web address] [address] Harris Gross MD [address] [place], [place] [id number] Altered mental status, unspecified; Dysuria Social History [...] reflex microscopic (03/06/2025 12:00 AM EDT) Specific [place] Urine 1.008 1.003 - 1.030 LAB URINALYSIS - AUTOMATED METHOD 03/06/2025 10:34 AM [facility] pH, Urine 7.5 5.0 - 8.0 pH LAB URINALYSIS - AUTOMATED METHOD 03/06/2025 10:34 AM [facility] Leukocytes, Urine Negative Negative LAB URINALYSIS - AUTOMATED METHOD 03/06/2025 10:34 AM [facility] Nitrite, Urine Negative Negative LAB URINALYSIS - AUTOMATED METHOD 03/06/2025 10:34 AM [facility] Protein, Urine Negative <=Trace mg/dL LAB URINALYSIS - AUTOMATED METHOD 03/06/2025 10:34 AM [facility] Glucose, Urine Negative Negative mg/dL LAB URINALYSIS - AUTOMATED METHOD 03/06/2025 10:34 AM [facility] Ketones, Urine Negative Negative mg/dL LAB URINALYSIS - AUTOMATED METHOD 03/06/2025 10:34 AM [facility] Urobilinogen, Urine 0.2 0.2 - 1.0 mg/dL LAB URINALYSIS - AUTOMATED METHOD 03/06/2025 10:34 AM [facility] Bilirubin, Urine Negative Negative LAB URINALYSIS - AUTOMATED METHOD 03/06/2025 10:34 AM [facility] Blood, Urine Negative Negative LAB URINALYSIS - AUTOMATED METHOD 03/06/2025 10:34 AM [facility] Urine Urine specimen obtained by clean catch procedure / Unknown 03/06/2025 03/06/2025 8:51 AM EDT us Harris Gross MD LAB URINE ORDERABLES Final Resul t [facility] [address] [place] [address], * Culture urine (03/06/2025 12:00 AM EDT) Culture, Urine <10,000 CFU/mL gram positive cocci, insignificant count, no further workup 03/07/2025 1:00 PM EDT [facility] Urine Urine specimen obtained by clean catch procedure / Unknown 03/06/2025 03/06/2025 8:51 AM EDT Harris Gross MD LAB MICROBIOLOGY - GENERAL ORDER ROEL Final Result [facility] [address] [place] [address], documented in this encounter Visit Diagnoses Diagnosis Altered mental status, unspecified Dysuria documented in this encounter Care Teams University Registrar Relationship Specialty Start Date End Date Harris Gross MD [address] [place] [address] [address] [place] [address] PCP - General Geriatric Medicine 02/13/25 documented as of this encounter
--- OUTSIDE RECORDS SUMMARY | 2025-07-03 18:40 | XMS_ITS | Encounter Summary ---
Author Organization [facility] Address [address] [place] [address] Care Team Providers Care Loom Setter Fourdrinier Name Role Phone Harris Gross MD Primary Care Provider [phone] Encounter Details Date Type Department Care Team (Late st Contact Info) Description 05/25/2025 Lab Requisition [facility] - Main Lab 299 [facility] [place] [address] Harris Gross MD [address] [place], [place] [phone] Essential (primary) hypertension; Chronic obstructive pulmonary disease, [...] Final Resul t [facility] [address] [place] [address], * Iron and TIBC (05/26/2025 4:52 AM [...] Final Resul t [facility] [address] [place] [address], * (ABNORMAL) Basic metabolic panel (05/26/2025 4:52 AM EDT) Sodium 141 133 - 145 mmol/L LAB CHEMISTRY METHOD 05/26/2025 12:56 PM EDT [facility] Potassium 4.8 3.5 - 5.5 mmol/L LAB CHEMISTRY METHOD 05/26/2025 12:56 PM [facility] Chloride 108 96 - 110 mmol/L LAB CHEMISTRY METHOD 05/26/2025 12:56 PM [facility] CO2 30 21 - 32 mmol/L LAB CHEMISTRY METHOD 05/26/2025 12:56 PM [facility] Anion Gap 3 3 - 11 LAB CHEMISTRY METHOD 05/26/2025 12:56 PM [facility] Glucose 75 70 - 100 mg/dL LAB CHEMISTRY METHOD 05/26/2025 12:56 PM [facility] BUN 21 5 - 25 mg/dL LAB CHEMISTRY METHOD 05/26/2025 12:56 PM [facility] Creatinine 0.98 0.50 - 1.10 mg/dL LAB CHEMISTRY METHOD 05/26/2025 12:56 PM [facility] eGFR 57(L) >=60 mL/min/1. 73m2 LAB CHEMISTRY METHOD 05/26/2025 12:56 PM [facility] Comment:Calculation based on the Chronic Kidney Disease Epidemiology Collaboration (CKD-EPI) equation refit without adjustment for race. BUN/Creatinine Ratio 21.4 LAB CHEMISTRY METHOD 05/26/2025 12:56 PM [facility] Calcium 9.1 8.5 - 10.5 mg/dL LAB CHEMISTRY METHOD 05/26/2025 12:56 PM EDT [facility] Blood Venous blood specimen / Unknown Venipuncture / Unknown 05/26/2025 4:52 AM EDT 05/26/2025 10:18 AM EDT us Harris Gross MD LAB BLOOD ORDERABLES Final Resul t [facility] [address] [place] [address], * (ABNORMAL) Complete blood count (05/26/2025 4:52 [...] LAB NRBC Absolute 0.00 <0.10 K/mcL [facility] 05/26/2025 12:53 PM EDT [facility] Blood Venous blood specimen / Unknown Venipuncture / Unknown 05/26/2025 4:52 AM EDT 05/26/2025 10:18 AM EDT Harris Gross MD LAB BLOOD ORDERABLES Final Resul t [facility] [address] [place] [address], documented in this encounter Visit Diagnoses Diagnosis Essential (primary) hypertension Unspecified essential hypertension Chronic obstructive pulmonary disease, unspecified (CMS/HCC V24, CMS/HCC V28) Gastro-esophageal reflux disease without esophagitis Anemia, unspecified documented in this encounter Care Teams Loom Setter Fourdrinier Relationship Specialty Start Date End Date Harris Gross MD [address] [place] [address] [address] [place] [address] PCP - General Geriatric Medicine 02/13/25 documented as of this encounter
--- OUTSIDE RECORDS SUMMARY | 2025-07-03 18:40 | XMS_ITS | Encounter Summary ---
Author Organization [facility] Address [address] [place] [address] Care Team Providers Care Quality Assurance Monitor Body Name Role Phone Harris Gross MD Primary Care Provider [phone] Encounter Details Date Type Department Care Team (Late st Contact Info) Description 05/22/2025 Lab Requisition [facility] - Main Lab 299 [facility] [employer] [place] [address] Harris Gross MD [address] [place], [place] [phone] Essential (primary) hypertension; Anemia, unspecified Social History [...] LAB CHEMISTRY METHOD 05/22/2025 10:28 AM EDT [facility] Potassium 3.9 3.5 - 5.5 mmol/L LAB CHEMISTRY METHOD 05/22/2025 10:28 AM [facility] Chloride 104 96 - 110 mmol/L LAB CHEMISTRY METHOD 05/22/2025 10:28 AM [facility] CO2 29 21 - 32 mmol/L LAB CHEMISTRY METHOD 05/22/2025 10:28 AM [facility] Anion Gap 5 3 - 11 LAB CHEMISTRY METHOD 05/22/2025 10:28 AM [facility] Glucose 66(L) 70 - 100 mg/dL LAB CHEMISTRY METHOD 05/22/2025 10:28 AM [facility] BUN 23 5 - 25 mg/dL LAB CHEMISTRY METHOD 05/22/2025 10:28 AM [facility] Creatinine 0.91 0.50 - 1.10 mg/dL LAB CHEMISTRY METHOD 05/22/2025 10:28 AM [facility] eGFR 62 >=60 mL/min/1. 73m2 LAB CHEMISTRY METHOD 05/22/2025 10:28 AM [facility] Comment:Calculation based on the Chronic Kidney Disease Epidemiology Collaboration (CKD-EPI) equation refit without adjustment for race. BUN/Creatinine Ratio 25.3 LAB CHEMISTRY METHOD 05/22/2025 10:28 AM [facility] Calcium 8.9 8.5 - 10.5 mg/dL LAB CHEMISTRY METHOD 05/22/2025 10:28 AM [facility] Blood Venous blood specimen / Unknown Venipuncture / Unknown 05/22/2025 5:27 AM EDT 05/22/2025 9:40 AM EDT us Harris Gross MD LAB BLOOD ORDERABLES Final Resul t [facility] [address] [place] [address], * (ABNORMAL) Complete blood count (05/22/2025 5:27 AM EDT) [facility] Signature WBC 2.8(L) 4.8 - 10.8 K/mcL LAB HEMETOLOGY METHOD 05/22/2025 11:24 AM [facility] RBC 2.50(L) 3.80 - 4.80 M/mcL LAB HEMETOLOGY METHOD 05/22/2025 11:24 AM [facility] Hemoglobin 7.0(L) 11.5 - 16.0 g/dL LAB HEMETOLOGY METHOD 05/22/2025 11:24 AM [facility] Hematocrit 23.2(L) 35.0 - 47.0 % LAB HEMETOLOGY METHOD 05/22/2025 11:24 AM [facility] MCV 91.3 79.0 - 98.0 FL LAB HEMETOLOGY METHOD 05/22/2025 11:24 AM [facility] MCH 27.6 27.0 - 32.0 pcg LAB HEMETOLOGY METHOD 05/22/2025 11:24 AM [facility] MCHC 30.2(L) 32.0 - 37.0 g/dL LAB HEMETOLOGY METHOD 05/22/2025 11:24 AM [facility] RDW 15.0 11.0 - 15.0 % LAB HEMETOLOGY METHOD 05/22/2025 11:24 AM [facility] Platelets 145 130 - 400 K/mcL LAB HEMETOLOGY METHOD 05/22/2025 11:24 AM [facility] MPV 11.9(H) 7.0 - 11.0 FL LAB HEMETOLOGY METHOD 05/22/2025 11:24 AM [facility] NRBC 0.0 <1.0 % LAB HEMETOLOGY METHOD 05/22/2025 11:24 AM EDT [facility] NRBC Absolute 0.00 <0.10 K/mcL LAB HEMETOLOGY METHOD 05/22/2025 11:24 AM EDT [facility] Blood Venous blood specimen / Unknown Venipuncture / Unknown 05/22/2025 5:27 AM EDT 05/22/2025 9:40 AM EDT us Harris Gross MD LAB BLOOD ORDERABLES Final Resul t [facility] [address] [place] [address], documented in this encounter Visit Diagnoses Diagnosis Essential (primary) hypertension Unspecified essential hypertension Anemia, unspecified documented in this encounter Care Teams Quality Assurance Monitor Body Relationship Specialty Start Date End Date Harris Gross MD [address] [place] [address] [address] [place] [address] PCP - General Geriatric Medicine 02/13/25 documented as of this encounter
--- OUTSIDE RECORDS SUMMARY | 2025-07-03 18:40 | XMS_ITS | Encounter Summary ---
Author Organization [facility] Address [address] [place] [address] Care Team Providers Care Sales Compensation Analyst Name Role Phone Harris Gross MD Primary Care Provider [phone] Encounter Details Date Type Department Care Team (Late st Contact Info) Description 05/28/2025 Lab Requisition [facility] - Main Lab 299 [facility] [place] [address] Harris Gross MD [address] [place], [place] [phone] Essential (primary) hypertension Social History Tobacco Use [...] LAB CHEMISTRY METHOD 05/29/2025 10:23 AM EDT [facility] Potassium 4.4 3.5 - 5.5 mmol/L LAB CHEMISTRY METHOD 05/29/2025 10:[address] [facility] Chloride 104 96 - 110 mmol/L LAB CHEMISTRY METHOD 05/29/2025 10:[address] [facility] CO2 31 21 - 32 mmol/L LAB CHEMISTRY METHOD 05/29/2025 10:[address] [facility] Anion Gap 5 3 - 11 LAB CHEMISTRY METHOD 05/29/2025 10:[address] [facility] Glucose 76 70 - 100 mg/dL LAB CHEMISTRY METHOD 05/29/2025 10:[address] [facility] BUN 21 5 - 25 mg/dL LAB CHEMISTRY METHOD 05/29/2025 10:[address] [facility] Creatinine 0.86 0.50 - 1.10 mg/dL LAB CHEMISTRY METHOD 05/29/2025 10:[address] [facility] eGFR 67 >=60 mL/min/1. 73m2 LAB CHEMISTRY METHOD 05/29/2025 10:[address] [facility] Comment:Calculation based on the Chronic Kidney Disease Epidemiology Collaboration (CKD-EPI) equation refit without adjustment for race. BUN/Creatinine Ratio 24.4 LAB CHEMISTRY METHOD 05/29/2025 10:[address] [facility] Calcium 9.0 8.5 - 10.5 mg/dL LAB CHEMISTRY METHOD 05/29/2025 10:[address] [facility] Blood Venous blood specimen / Unknown Venipuncture / Unknown 05/29/2025 6:50 AM EDT 05/29/2025 9:14 AM EDT us Harris Gross MD LAB BLOOD ORDERABLES Final Resul t [facility] [address] [place] [address], * (ABNORMAL) Complete blood count (05/29/2025 6:50 AM EDT) Pathologist [facility] WBC 3.4(L) 4.8 - 10.8 K/mcL LAB HEMETOLOGY METHOD 05/29/2025 10:[address] [facility] RBC 2.70(L) 3.80 - 4.80 M/mcL LAB HEMETOLOGY METHOD 05/29/2025 10:[address] [facility] Hemoglobin 7.6(L) 11.5 - 16.0 g/dL LAB HEMETOLOGY METHOD 05/29/2025 10:[address] [facility] Hematocrit 25.2(L) 35.0 - 47.0 % LAB HEMETOLOGY METHOD 05/29/2025 10:[address] [facility] MCV 93.0 79.0 - 98.0 FL LAB HEMETOLOGY METHOD 05/29/2025 10:[address] [facility] MCH 28.0 27.0 - 32.0 pcg LAB HEMETOLOGY METHOD 05/29/2025 10:[address] [facility] MCHC 30.2(L) 32.0 - 37.0 g/dL LAB HEMETOLOGY METHOD 05/29/2025 10:[address] [facility] RDW 16.5(H) 11.0 - 15.0 % LAB HEMETOLOGY METHOD 05/29/2025 10:[address] [facility] Platelets 135 130 - 400 K/[facility] LAB HEMETOLOGY METHOD 05/29/2025 10:[address] [facility] MPV 12.0(H) 7.0 - 11.0 FL LAB HEMETOLOGY METHOD 05/29/2025 10:[address] [facility] NRBC 0.0 <1.0 % LAB HEMETOLOGY METHOD 05/29/2025 10:[address] [facility] NRBC Absolute 0.00 <0.10 K/[facility] LAB HEMETOLOGY METHOD 05/29/2025 10:07 AM EDT [facility] Blood Venous blood specimen / Unknown Venipuncture / Unknown 05/29/2025 6:50 AM EDT 05/29/2025 9:14 AM EDT Harris Gross MD LAB BLOOD ORDERABLES Final Resul t [facility] [address] [place] [address], documented in this encounter Visit Diagnoses Diagnosis Essential (primary) hypertension Unspecified essential hypertension documented in this encounter Care Teams Sales Compensation Analyst Relationship Specialty Start Date End Date Harris Gross MD [address] [place] [address] [address] [place] [address] PCP - General Geriatric Medicine 02/13/25 documented as of this encounter
--- OUTSIDE RECORDS SUMMARY | 2025-07-03 18:41 | XMS_ITS | Encounter Summary ---
Author Organization [facility] Address [address] [place] [address] Care Team Providers Care Outdoor Adventure Guides Name Role Phone Harris Gross MD Primary Care Provider [phone] Encounter Details Date Type Department Care Team (Late st Contact Info) Description 06/13/2025 Lab Requisition [facility] - Main Lab 299 [facility] [place] [address] Harris Gross MD [address] [place], [place] [phone] Essential (primary) hypertension; Chronic obstructive pulmonary disease, [...] 10:31 AM [facility] Potassium 4.3 3.5 - 5.5 mmol/L LAB CHEMISTRY METHOD 06/16/2025 10:31 AM [facility] Chloride [...] [facility] [address] [place] [address], * (ABNORMAL) Complete blood count (06/16/2025 5:01 AM EDT) WBC 3.2(L) 4.8 - 10.8 K/mcL LAB HEMETOLOGY METHOD 06/16/2025 10:06 AM EDT [facility] RBC 2.80(L) 3.80 - 4.80 M/mcL LAB HEMETOLOGY METHOD 06/16/2025 10:06 AM EDT [facility] Hemoglobin 8.3(L) 11.5 - 16.0 g/dL LAB HEMETOLOGY METHOD 06/16/2025 10:06 AM [facility] Hematocrit 27.0(L) 35.0 - 47.0 % LAB HEMETOLOGY METHOD 06/16/2025 10:06 AM EDT [facility] MCV 95.7 79.0 - 98.0 FL LAB HEMETOLOGY METHOD 06/16/2025 10:06 AM EDT [facility] MCH 29.4 27.0 - 32.0 pcg LAB HEMETOLOGY METHOD 06/16/2025 10:06 AM [facility] MCHC 30.7(L) 32.0 - 37.0 g/dL LAB HEMETOLOGY METHOD 06/16/2025 10:06 AM EDT [facility] RDW 17.9(H) 11.0 - 15.0 % LAB HEMETOLOGY METHOD 06/16/2025 10:06 AM EDT [facility] Platelets 119(L) 130 - 400 K/mcL LAB HEMETOLOGY METHOD 06/16/2025 10:06 AM [facility] MPV 12.1(H) 7.0 - 11.0 FL LAB HEMETOLOGY METHOD 06/16/2025 10:06 AM EDT [facility] NRBC 0.0 <1.0 % LAB HEMETOLOGY METHOD 06/16/2025 10:06 AM EDT [facility] NRBC Absolute 0.00 <0.10 K/mcL LAB HEMETOLOGY METHOD 06/16/2025 10:06 AM EDT [facility] Blood Venous blood specimen / Unknown Venipuncture / Unknown 06/16/2025 5:01 AM EDT 06/16/2025 9:03 AM EDT us Harris Gross MD LAB BLOOD ORDERABLES Final Resul t [facility] [address] [place] [address], documented in this encounter Visit Diagnoses Diagnosis Essential (primary) hypertension Unspecified essential hypertension Chronic obstructive pulmonary disease, unspecified (CMS/HCC V24, CMS/HCC V28) documented in this encounter Care Teams Outdoor Adventure Guides Relationship Specialty Start Date End Date Harris Gross MD [address] [place] [address] [address] [place] [address] PCP - General Geriatric Medicine 02/13/25 documented as of this encounter
--- OUTSIDE RECORDS SUMMARY | 2025-07-03 18:41 | XMS_ITS | Encounter Summary ---
Author Organization [facility] Address [address] [place] [address] Care Team Providers Care Hot Roll Inspector Name Role Phone Harris Gross MD Primary Care Provider [phone] Encounter Details Date Type Department Care Team (Late st Contact Info) Description 06/06/[address] [facility] - Main Lab [address] [facility] [place] [address] Harris Gross MD [address] [place], [place] [phone] Essential (primary) hypertension; Chronic obstructive pulmonary disease, [...] mmol/L LAB CHEMISTRY METHOD 06/09/2025 11:53 AM [facility] Potassium 4.4 3.5 - 5.5 mmol/L LAB CHEMISTRY METHOD 06/09/2025 11:53 AM [facility] Chloride 104 96 - 110 mmol/L LAB CHEMISTRY METHOD 06/09/2025 11:53 AM [facility] CO2 29 21 - 32 mmol/L LAB CHEMISTRY METHOD 06/09/2025 11:53 AM [facility] Anion Gap 5 3 - 11 LAB CHEMISTRY METHOD 06/09/2025 11:53 AM [facility] Glucose 73 70 - 100 mg/dL LAB CHEMISTRY METHOD 06/09/2025 11:53 AM [facility] BUN 26(H) 5 - 25 mg/dL LAB CHEMISTRY METHOD 06/09/2025 11:53 AM [facility] Creatinine 0.93 0.50 - 1.10 mg/dL LAB CHEMISTRY METHOD 06/09/2025 11:53 AM [facility] eGFR 61 >=60 mL/min/1. 73m2 LAB CHEMISTRY METHOD 06/09/2025 11:53 AM [facility] Comment:Calculation based on the Chronic Kidney Disease Epidemiology Collaboration (CKD-EPI) equation refit without adjustment for race. BUN/Creatinine Ratio 28.0 LAB CHEMISTRY METHOD 06/09/2025 11:53 AM [facility] Calcium 9.1 8.5 - 10.5 mg/dL LAB CHEMISTRY METHOD 06/09/2025 11:53 AM [facility] Blood Venous blood specimen / Unknown Venipuncture / Unknown 06/09/2025 4:55 AM EDT 06/09/2025 10:20 AM EDT Harris Gross MD LAB BLOOD ORDERABLES Final Resul t [facility] [address] [place] [address], * (ABNORMAL) Complete blood count (06/09/2025 4:55 AM EDT) WBC 3.1(L) 4.8 - 10.8 K/mcL LAB HEMETOLOGY METHOD 06/09/2025 11:14 AM EDT [facility] RBC 2.80(L) 3.80 - 4.80 M/mcL LAB HEMETOLOGY METHOD 06/09/2025 11:14 AM EDT [facility] Hemoglobin 8.0(L) 11.5 - 16.0 g/dL LAB HEMETOLOGY METHOD 06/09/2025 11:14 AM [facility] Hematocrit 26.2(L) 35.0 - 47.0 % LAB HEMETOLOGY METHOD 06/09/2025 11:14 AM EDT [facility] MCV 94.9 79.0 - 98.0 FL LAB HEMETOLOGY METHOD 06/09/2025 11:14 AM EDT [facility] MCH 29.0 27.0 - 32.0 pcg LAB HEMETOLOGY METHOD 06/09/2025 11:14 AM [facility] MCHC 30.5(L) 32.0 - 37.0 g/dL LAB HEMETOLOGY METHOD 06/09/2025 11:14 AM EDT [facility] RDW 18.4(H) 11.0 - 15.0 % LAB HEMETOLOGY METHOD 06/09/2025 11:14 AM EDT [facility] Platelets 130 130 - 400 K/mcL LAB HEMETOLOGY METHOD 06/09/2025 11:14 AM [facility] MPV 12.1(H) 7.0 - 11.0 FL LAB HEMETOLOGY METHOD 06/09/2025 11:14 AM EDT [facility] NRBC 0.0 <1.0 % LAB HEMETOLOGY METHOD 06/09/2025 11:14 AM EDT [facility] NRBC Absolute 0.00 <0.10 K/mcL LAB HEMETOLOGY METHOD 06/09/2025 11:14 AM EDT [facility] Blood Venous blood specimen / Unknown Venipuncture / Unknown 06/09/2025 4:55 AM EDT 06/09/2025 10:20 AM EDT us Harris Gross MD LAB BLOOD ORDERABLES Final Resul t [facility] [address] [place] [address], documented in this encounter Visit Diagnoses Diagnosis Essential (primary) hypertension Unspecified essential hypertension Chronic obstructive pulmonary disease, unspecified (CMS/HCC V24, CMS/HCC V28) documented in this encounter Care Teams Hot Roll Inspector Relationship Specialty Start Date End Date Harris Gross MD [address] [place] [address] [address] [place] [address] PCP - General Geriatric Medicine 02/13/25 documented as of this encounter
--- OUTSIDE RECORDS SUMMARY | 2025-07-03 18:41 | XMS_ITS | Encounter Summary ---
Author Organization [facility] Address [address] [place] [address] Care Team Providers Care Housing Assistant Property Manager Name Role Phone Harris Gross MD Primary Care Provider [phone] Encounter Details Date Type Department Care Team (Late st Contact Info) Description 05/30/2025 Lab Requisition [facility] - Main Lab 299 [facility] [place] [address] Harris Gross MD [address] [place], [place] [phone] Essential (primary) hypertension; Chronic obstructive pulmonary disease, [...] mmol/L LAB CHEMISTRY METHOD 06/02/2025 12:46 PM [facility] Potassium 4.0 3.5 - 5.5 mmol/L LAB CHEMISTRY METHOD 06/02/2025 12:46 PM [facility] Chloride 106 96 - 110 mmol/L LAB CHEMISTRY METHOD 06/02/2025 12:46 PM [facility] CO2 27 21 - 32 mmol/L LAB CHEMISTRY METHOD 06/02/2025 12:46 PM [facility] Anion Gap 7 3 - 11 LAB CHEMISTRY METHOD 06/02/2025 12:46 PM [facility] Glucose 69(L) 70 - 100 mg/dL LAB CHEMISTRY METHOD 06/02/2025 12:46 PM [facility] BUN 21 5 - 25 mg/dL LAB CHEMISTRY METHOD 06/02/2025 12:46 PM [facility] Creatinine 0.86 0.50 - 1.10 mg/dL LAB CHEMISTRY METHOD 06/02/2025 12:46 PM [facility] eGFR 67 >=60 mL/min/1. 73m2 LAB CHEMISTRY METHOD 06/02/2025 12:46 PM [facility] Comment:Calculation based on the Chronic Kidney Disease Epidemiology Collaboration (CKD-EPI) equation refit without adjustment for race. BUN/Creatinine Ratio 24.4 LAB CHEMISTRY METHOD 06/02/2025 12:46 PM [facility] Calcium 9.0 8.5 - 10.5 mg/dL LAB CHEMISTRY METHOD 06/02/2025 12:46 PM [facility] Blood Venous blood specimen / Unknown Venipuncture / Unknown 06/02/2025 4:54 AM EDT 06/02/2025 10:56 AM EDT Harris Gross MD LAB BLOOD ORDERABLES Final Resul t [facility] [address] [place] [address], * (ABNORMAL) Complete blood count (06/02/2025 4:54 AM EDT) WBC 3.1(L) 4.8 - 10.8 K/mcL LAB HEMETOLOGY METHOD 06/02/2025 1:02 PM EDT [facility] RBC 2.70(L) 3.80 - 4.80 M/mcL LAB HEMETOLOGY METHOD 06/02/2025 1:02 PM EDT [facility] Hemoglobin 7.8(L) 11.5 - 16.0 g/dL LAB HEMETOLOGY METHOD [facility]/02[facility]25 [facility] Hematocrit 25.7(L) 35.0 - 47.0 % LAB HEMETOLOGY METHOD 06/02/2025 [facility] MCV 95.9 79.0 - 98.0 FL LAB HEMETOLOGY METHOD 06/02/2025 1:02 PM EDT [facility] MCH 29.1 27.0 - 32.0 pcg LAB HEMETOLOGY METHOD 06/02/2025 1:02 PM [facility] MCHC 30.4(L) 32.0 - 37.0 g/dL LAB HEMETOLOGY METHOD 06/02/2025 1:02 PM EDT [facility] RDW 17.8(H) 11.0 - 15.0 % LAB HEMETOLOGY METHOD 06/02/2025 1:02 PM EDT [facility] Platelets 109(L) 130 - 400 K/mcL LAB HEMETOLOGY METHOD 06/02/2025 [facility] MPV 12.3(H) 7.0 - 11.0 FL LAB HEMETOLOGY METHOD 06/02/2025 1:02 PM EDT [facility] NRBC 0.0 <1.0 % LAB HEMETOLOGY METHOD 06/02/2025 1:02 PM EDT [facility] NRBC Absolute 0.00 <0.10 K/mcL LAB HEMETOLOGY METHOD 06/02/2025 1:02 PM EDT [facility] Blood Venous blood specimen / Unknown Venipuncture / Unknown 06/02/2025 4:54 AM EDT 06/02/2025 10:56 AM EDT us Harris Gross MD LAB BLOOD ORDERABLES Final Resul t [facility] [address] [place] [address], documented in this encounter Visit Diagnoses Diagnosis Essential (primary) hypertension Unspecified essential hypertension Chronic obstructive pulmonary disease, unspecified (CMS/HCC V24, CMS/HCC V28) documented in this encounter Care Teams Housing Assistant Property Manager Relationship Specialty Start Date End Date Harris Gross MD [address] [place] [address] [address] [place] [address] PCP - General Geriatric Medicine 02/13/25 documented as of this encounter
--- OUTSIDE RECORDS SUMMARY | 2025-07-03 18:41 | XMS_ITS | Clinical Summary ---
Author Organization [facility] Address [address] [place] [address] Phone Care Team Providers Care Medical Concierge Name Role Phone Nick Gomez Primary Care [...] file Insurance MEDICARE PART A & B [facility] MEDICARE SUPPLEMENT MEDICARE PART A & B [employer] MEDICARE SUPPLEMENT MEDICARE PART A & B [employer] MEDICARE SUPPLEMENT MEDICARE PART A & B [facility] MEDICARE SUPPLEMENT MEDICARE PART A & B [facility] MEDICARE SUPPLEMENT MEDICARE PART A & B [facility] MEDICARE SUPPLEMENT MEDICARE PART A & B [facility] MEDICARE SUPPLEMENT MEDICARE PART A & B Member Subscriber Plan / Payer (Ef fective 2005-Present) Name:Bella Henley Member ID:[id number] Relation to Subscriber:Self Name:Bella Henley Subscriber ID:[id number] Payer ID:[id number] Group ID:Not on file Type:Medicare Address: [employer] [address] [place] [id number] [facility] MEDICARE SUPPLEMENT MEDICARE PART A & B [facility] SUPPLEMENT Care Teams Medical Concierge Relationship Specialty Start Date End Date Nick Gomez PA [address] [place] [address] PCP - General Physician Accounts Executive 05/14/23 Additional Source Comments The information contained in this document represents components of the legal health record. It is not the complete legal health record.[facility]
--- OUTSIDE RECORDS SUMMARY | 2025-07-03 18:41 | XMS_ITS | Encounter Summary ---
Author Organization [facility] Address [address] [place] [address] Phone Care Team Providers Care Talk Show Host Name Role Phone Norm Bates Unavailable [phone] Verónica Nielson MD Unavailable [phone] Bandar Renteria MD Unavailable [phone] Luis Milner CNP Unavailable [phone] Martha Estrada MD Unavailable [phone] David Walton MD Unavailable [phone] Deny Saleh DO Primary Care Provider [phone] Bandar Renteria MD Primary Care Provider Nick Gomez Primary Care Provider + Encounter Details Date Type Department Care Team (Late st Contact Info) Description 12/14/2020 Transcribe Orders [facility] Laboratory [address] [place] [address] Deny Saleh DO [address] [facility] [address] [place], [place] [id number] [email or web address] Social History Tobacco Use Types Packs/Day Years [...] on filedocumented in this encounter Care Teams Talk Show Host Relationship Specialty Start Date End Date Nunudelfina Deny SawyerDO [address] [place] [address] [email or web address] PCP - General Internal Medicine 08/09/17 01/09/21 Bandar Renteria MD [address] [place] [address] [address] PCP - General Internal Medicine 01/10/21 05/13/23 Nick Gomez PA [address] [place] [address] PCP - General Physician Truck Crane Operator Helper 05/14/23 Norm Bates PA [address] [place] [address] Historical LMR Provider 06/22/17 2 Verónica Nielson MD [address] [address] [email or web address] Historical LMR Provider 06/22/17 Bandar Renteria MD [address] [place] [address] [address] Historical LMR Provider 06/22/17 2 Luis Milner CNP [address] [place] [address] Historical LMR Provider 06/22/17 09/11/21 Martha Estrada MD 4 [facility], [place] [address] [email or web address] Historical LMR Provider 06/22/17 David Walton MD [address] [place] [address] Historical LMR Provider 06/22/17 2 documented as of this encounter Additional Source Comments The information contained in this document represents components of the legal health record. It is not the complete legal health record.[facility]
--- OUTSIDE RECORDS SUMMARY | 2025-07-03 18:41 | XMS_ITS | Data Portability ---
Author Organization [facility], Telehealth Patient Home Address [address] [place] [address] Assessment No assessment recorded. Plan of Treatment Reminders Order Date Submit Date Provider Last Modified By Organization Details Last Modified Time Details Appointments None recorded. Lab BMP, blood [address] Internal Medicine, [address] [place] [address], [place], [phone], 9 07:42:19 lipid panel, blood [address] Internal Medicine, [address] [place] [address], [place], [address], 9 07:42:20 Referral None recorded. Procedures None recorded. Surgeries None recorded. Imaging None recorded. Medication Orders Cipro 500 mg tablet 2018 019 [facility] [place] [place] [facility], [address] [place], [place], [phone], 9 11:53:38 Zithromax Z-Rajesh 250 mg tablet 2018 019 [facility], [address], [place], [phone], 9 11:53:23 metoprolol succinate ER 25 mg tablet,exte nded release 24 hr 2018 019 [facility], [address], [place], [phone], 9 11:15:40 Patient Targets Encounter Date Encounter Id Patient Goals Patient Target Last Modified By Organization Details Last Modified Time 09/26/2018 [id number] Call therapist to schedule counseling mindyerlinda Not available 09/26/2018 11:54:07 Patient Instructions Encounter Date Encounter Id Patient Instructions Last Modified By Organization Details Last Modified Time 09/21/2018 [id number] Relaxation, reconsider escitalopram- will review at f/u next week to avoid dual med starting together marilynn Not available 09/21/2018 15:27:44 09/26/2018 [id number] pulse oximetry* marilynn Not available 09/26/2018 11:54:08 10/08/2018 [id number] Acute Sinusitis: Care Instructions marilynn Not available 10/08/2018 11:28:17 pulse oximetry* marilynn Not available 10/08/2018 11:28:17 12/04/2018 [id number] pulse oximetry* marilynn Not available 12/04/2018 12:22:51 Reason for Referral None Reported. Results Created Date Observation Date Name Description Value Unit Range Abnormal Flag Note LastModifiedBy Organization Detail LastModifiedTime 09/26/1909/26/2018 pulse oxime try* Result 96 Not Available [facility] Internal Medicine [address] [place] [address], [phone], 09/26/2018 11:15:30 10/08/19 19 10/08/2018 pulse oxime try* Result 97 Not Available [facility] Internal Medicine [address] [place] [address], [phone], 10/08/2018 11:18:00 12/05/19 19 12/04/2018 pulse oxime try* Result 97 Not Available [facility] Internal Medicine [address] [place] [address], [phone], 12/04/2018 11:55:20 Result Notes None recorded. Problems Name Problem SNOMED Code Status Onset Date Resolution Date Notes Provider Name and Address Organization Details Recorded Time Diverticul itis 957454349 Active 2017 Taina Hanson [facility] 8 16:58:14 Chronic obstructiv e pulmonary disease 70550823 Active 2017 Tainaronnell Hanson [facility] 8 16:58:22 Aortic valve stenosis 48117412 Active 2017 Tainaronnell Hanson [facility] 8 16:58:36 Anxiety 74309806 Active 2017 Tainaronnell Hanson [facility] 8 16:58:45 Cystocele 761270780 Active 2017 Tainaronnell Hanson [facility] 8 16:58:58 Abdominal aortic aneurysm 135264277 Active 2017 Samina Lama NP, S [address] [place], [address], [facility] 8 13:58:39 Problem Notes None recorded. Medical Equipment None Reported. Allergies Allergen ID Allergen Name Allergen Category Reaction Reaction Severity Criticality Documentation Date Start Date Code Code System Note Provider Name and Address Organization Details Recorded Time 1547 Substance with sulfonami de structure and antibacte rial mechanism of action (substanc e) medicatio n Not available Not available Not available 02/06/2018 48921 8003 SNOMED Tainaronnell Hanson [facility] 8 16:57:43 1548 Keflex medicatio n Not available Not available Not available 02/06/2018 7 RxNorm Taina Tarangoicki [facility] 8 16:57:55 2328 Flagyl medicatio n other moderate Not available 05/29/2018 6 RxNorm Tainaronnell [facility]ickdonal[facility] 8 11:44:55 2717 metoprolo l Not available chest pain Not available Not available 09/21/2018 6918 RxNorm Tainaronnell Tarangoickdonaldo [facility] 9 16:31:23 Medications Name Sig Start [...] % 97 % 128/84 mm[Hg] Taina Sukhdeepmary [facility] 9 14:32:26 Date Recorded Body height Heart rate Oxygen saturation Oxygen saturation in Arterial blood by Pulse oximetry Systolic And Diastolic Provider Name and Address Organization Details Last Updated DateTime 9 168.91 cm 90 /min 96 % 96 % 124/80 mm[Hg] Eunice Molina [facility] 9 11:17:24 Date Recorded Heart rate Provider Name an d Address Organization Details Last Updated DateTime 10/08/2018 84 /min Samina Lama NP, [address] [place], [address], [facility] 10/08/2018 11:28:37 Date Recorded Body height Oxygen saturation Oxygen saturation in Arterial blood by Pulse oximetry Heart rate Body temperature Systolic And Diastolic Provider Name and Address Organization Details Last Updated DateTime 9 168.91 cm 97 % 97 % 112 /min 98.2 [degF] 142/86 mm[Hg] [facility] 9 11:17:37 Date Recorded Heart rate Provider Name an d Address Organization Details Last Updated DateTime 10/19/2018 80 /min Samina Lama NP, [address] [place], [address], [facility] 10/19/2018 12:04:58 Date Recorded Body height Heart rate Oxygen saturation Oxygen saturation in Arterial blood by Pulse oximetry Systolic And Diastolic Provider Name and Address Organization Details Last Updated DateTime 9 168.91 cm 105 /min 98 % 98 % 140/80 mm[Hg] Taina Hanson [facility] 9 11:45:01 Date Recorded Body height Body mass index (BMI) Body weight Oxygen saturation Oxygen saturation in Arterial blood by Pulse oximetry Heart rate Systolic And Diastolic Provider Name and Address Organization Details Last Updated DateTime 9 168.91 cm 31.1 kg/m2 48870.6 7 g 97 % 97 % 97 /min 120/90 mm[Hg] Dahiana Ha [facility] Internal [facility] 9 11:56:24 Social History Question Answer Notes LastModified by Organizat ion Details LastModified Time Tobacco Smoking Status Former Smoker Not Available [employer] 07/07/2020 03:36:24 What Was The Date Of Your Most Recent Tobacco Screening? 12/04/2018 [id number] Information not available 07/07/2020 Sex: Unknown Functional [...] virus, quadrivalent, preservative 8 completed Eunice Molina [facility] 09/26/2018 11:16:26 Past Encounters Encounter ID Performer Location Encounter Start Date Encounter Closed Date Diagnosis/Indication Diagnosis SNOMED-CT Code Diagnosis ICD10 Code Diagnosis IMO Codes Diagnosis Note [id number] Deny Saleh DO [facility] Internal Medicine [address] [facility],[place] [address] 02/07/2018 11:02:27 02/07/2018 16:46:02 Anxiety 99626016 F41.9 Nail changes 784940021 L 60.9 Abdominal aortic aneurysm 675265658 I71.4 CT 11/2017, no changes 2016, 2.85 cm Aortic david nosis, non-rheumatic 923030192 I35.0 stable Gastroesop hageal reflux disease 557119225 K21.9 d/c or[place] mints, call if persists Insomnia 660980140 G47.0 0 review proper sleep hygiene be more active during day avoid naps [id number] Deny Saleh [facility] Internal Medicine [address] [facility],[place] [address] 03/16/2018 11:29:23 03/20/2018 08:12:01 Dehydration 03865090 E86.0 Gastroenteritis 56261859 K52.9 Aortic valve stenosis 60 196612 I35.0 stable, follow [id number] Deny Saleh [facility] Medicine [address] [facility],[place] [address] 05/16/2018 13:23:14 05/16/2018 14:06:44 Anxiety 79890283 F41.9 BID lorazepam helps Aortic valve stenosis 60 097327 I35.0 stable, echo 05/31/2017 Active or passive immunization 939106558 Z23 Abdominal aortic aneurysm 739555892 I71.4 CT 11/2017, no changes 2016, 2.85 cm Chronic ob structive pulmonary disease 48073541 J44.9 Non smoker X years, asymptomat ic Diverticular disease 397 078873 K57.90 no recent flare [id number] Deny Saleh [facility] Internal [facility] [address] [facility],[place] [address] 05/29/2018 11:40:58 05/29/2018 16:52:51 Aortic valve stenosis 90996365 I35.0 stable, echo 05/31/2017 Anxiety 28043499 F41.9 BID lorazepam helps, discussed current fears re: Constipation 05905368 K5 9.00 [id number] Deny Saleh [facility] [address] [facility],[place] [address] 08/14/2018 11:20:27 08/14/2018 17:00:16 Anxiety 91750477 F41.9 BID lorazepam helps, discussed current fears Aortic valve stenosis 60 857220 I35.0 stable, echo 05/31/2017 Diverticulitis 708345035 K57.92 Increased frequency of urination 458746334 R35.0 [id number] Deny Saleh DO [facility] [address] [facility] [address] 08/20/2018 11:12:33 08/20/2018 12:20:46 Anxiety 33760964 F41.9 BID alprazolam helps, discussed current fears Diverticulitis 682818920 K57.92 Aortic valve stenosis 60 079739 I35.0 stable, echo 05/31/2017 Family problems 59820727 4 Z63.79 Suggest therapy, names provided. Pt agrees [id number] Deny Saleh [facility] Medicine [address] [facility],[place] [address] 09/12/2018 10:19:31 09/12/2018 20:18:16 Abdominal aortic aneurysm 408258082 I71.4 CT 11/2017, no changes 2016, 2.85 cm Chronic ob structive pulmonary disease 11898825 J44.9 Non smoker X years, asymptomat ic Anxiety 38959073 F41.9 BID alprazolam helps, discussed current fears Aortic valve stenosis 60 925080 I35.0 stable, echo 05/31/2017 [id number] Deny Saleh [facility] [address] [facility] [address] 09/21/2018 14:26:58 09/25/2018 11:17:00 Anxiety 77540148 F41.9 discussed current fears again, see below Aortic valve stenosis 60 649532 I35.0 [id number] Deny Saleh [facility] Medicine [address] [facility] [address] 09/26/2018 11:12:05 09/26/2018 13:02:53 Hypertensive disorder 86151895 I10 Chronic ob structive pulmonary disease 68032906 J44.9 Non smoker X years, asymptomat ic Anxiety 12703169 F41.9 discussed current fears again, see below Aortic valve stenosis 60 457024 I35[place] [id number] Deny Saleh [facility] Medicine [address] [facility] [address] 10/08/2018 11:12:38 10/08/2018 14:35:10 Cough 33520600 R05 Acute sinusitis 77497017 J01.90 Anxiety 49440308 F41.9 revisited [id number] Deny Saleh [facility] Medicine [address] [facility],[place] [address] 10/19/2018 11:41:00 10/19/2018 12:37:34 Diverticulitis 677034162 K57.92 Intolerant Flagyl Anxiety 45268319 F41.9 revisited Aortic valve stenosis 60 591959 I35.0 asymptomat ic Abdominal aortic aneurysm 099211440 I71.4 CT 11/2017, no changes 2016, 2.85 cm Chronic ob structive pulmonary disease 31013474 J44.9 Non smoker X [place], [place] [id number] Deny Saleh [facility] Internal Medicine [address] [facility], [place] [address] 12/04/2018 11:49:58 12/04/2018 16:03:42 Chronic obstructive pulmonary disease 23680989 J44.9 Non smoker X years, asymptomat ic Anxiety 77379538 F41.9 revisited Aortic valve stenosis 60 780709 I35.0 asymptomat ic Health Concerns Section Related Observation LastModified by Organization Detai ls LastModified Time None Recorded Concern Status LastModified by Organization Details LastModified Time None Recorded Advance Directives Directive None Recorded Payers Insurance Date Sequence Insurance Name Policy Number Policy Berry Covered Member ID Berry Member ID Guarantor Name 12/03/2018 2 [facility] INDEMNITY PLAN (INDEMNITY) [id number] Bella Henley [id number] Bella Henley 12/03/2018 1 [place] [employer] Bella Henley [id number] Bella Henley Notes Date Note Type Note Provider Name a nd Address Organization Details Recorded Time 09/21/2018 text/html ROS as noted in the HPI Here with concerns BP had panic attack this am, ambulance was called Checked BP after pts episode was 158/101 Did not start escitalopram prescribed last week , under a great deal of stress Samina Lama NP, [address] [place], [address], [facility] 09/21/2018 15:27:56 09/26/2018 text/html ROS [...] to complete ADL's Samina Lama NP, S [address] [place] [address], [phone], [facility] 09/26/2018 11:54:50 10/08/2018 text/html ROS [...] family situation Samina Lama NP, S [address] [place], [address], [facility] 10/08/2018 11:49:45 10/19/2018 text/html Yesterday felt ok last night ate 1/2 roast precision grinder external-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 this a.m. also increased voiding w/no dysuria no N/V/D/C, no BRBPR or hematuria Samina Lama NP, S [address] [place], [address], [facility] 10/19/2018 12:09:27 12/04/2018 text/html ROS as noted in the HPI Very anxious re: husbands cognitive decline/getting worn out In therapy w/Peter Dopp Son also recent renal cancer, surgery went well.-but pt. gets worked up over everything pt recently started back on allergy shots some heartburn and post nasal drip Samina Lama, PRICER, S [address] [facility], [place], [address], [facility] 12/04/2018 12:23:16 OBGyn Episode No OBEpisode recorded.
--- OUTSIDE RECORDS SUMMARY | 2025-07-03 18:41 | XMS_ITS | Encounter Summary ---
Author Organization [facility] Address [address] [place] [address] Care Team Providers Care Mattress Filler Name Role Phone Harris Gross MD Primary Care Provider [phone] Encounter Details Date Type Department Care Team (Late st Contact Info) Description 05/30/2025 Lab Requisition [facility] - Main Lab [address] [facility] [place] [address] Harris Gross MD [address] [place], [place] [id number] Frequency of micturition Social History Tobacco Use [...] reflex microscopic (05/29/2025 8:00 AM EDT) Specific [place] Urine 1.016 1.003 - 1.030 LAB URINALYSIS - AUTOMATED METHOD 05/30/2025 8:36 AM [facility] pH, Urine 5.5 5.0 - 8.0 pH LAB URINALYSIS - AUTOMATED METHOD 05/30/2025 8:36 AM [facility] Leukocytes, Urine Negative Negative LAB URINALYSIS - AUTOMATED METHOD 05/30/2025 8:36 AM [facility] Nitrite, Urine Negative Negative LAB URINALYSIS - AUTOMATED METHOD 05/30/2025 8:36 AM [facility] Protein, Urine Negative <=Trace mg/dL LAB URINALYSIS - AUTOMATED METHOD 05/30/2025 8:36 AM [facility] Glucose, Urine Negative Negative mg/dL LAB URINALYSIS - AUTOMATED METHOD 05/30/2025 8:36 AM [facility] Ketones, Urine Negative Negative mg/dL LAB URINALYSIS - AUTOMATED METHOD 05/30/2025 8:36 AM [facility] Urobilinogen, Urine 0.2 0.2 - 1.0 mg/dL LAB URINALYSIS - AUTOMATED METHOD 05/30/2025 8:36 AM [facility] Bilirubin, Urine Negative Negative LAB URINALYSIS - AUTOMATED METHOD 05/30/2025 8:36 AM [facility] Blood, Urine Negative Negative LAB URINALYSIS - AUTOMATED METHOD 05/30/2025 8:36 AM [facility] Urine Urine specimen obtained by clean catch procedure / Unknown Non-blood Collection / Unknown 05/29/2025 8:00 AM EDT 05/30/2025 8:05 AM EDT us Harris Gross MD LAB URINE ORDERABLES Final Resul t [facility] [address] [place] [address], * (ABNORMAL) Culture urine (05/29/2025 8:00 AM EDT) Culture, Urine 10,000-49,000 CFU/mL Streptococcus viridans group(A) 06/03/2025 8:59 AM EDT [facility] Comment: Susceptibility testing not [...] AM EDT 05/30/2025 8:05 AM EDT Narrative [facility] - 06/03/2025 8:59 AM EDT Additional colony types present in insignificant amounts. Harris Gross MD LAB MICROBIOLOGY - GENERAL ORDER ROEL Final Result [facility] [address] [place] [address], documented in this encounter Visit Diagnoses Diagnosis Frequency of micturition Urinary frequency documented in this encounter Care Teams Mattress Filler Relationship Specialty Start Date End Date Harris Gross MD [address] [place] [address] [address] [place] [address] PCP - General Geriatric Medicine 02/13/25 documented as of this encounter
--- OUTSIDE RECORDS SUMMARY | 2025-07-03 18:41 | XMS_ITS | Encounter Summary ---
Author Organization [facility] Address [address] [place] [address] Care Team Providers Care Instrument Man Name Role Phone Harris Gross MD Primary Care Provider [phone] Encounter Details Date Type Department Care Team (Late st Contact Info) Description 06/21/2025 Lab Requisition [facility] - Main Lab [address] [facility] [place] [address] Harris Gross MD [address] [facility] [address] [place] [address] Essential (primary) hypertension; Chronic obstructive pulmonary disease, [...] V28) documented in this encounter Care Teams Instrument Man Relationship Specialty Start Date End Date Harris Gross MD [address] [facility] [address] [place], [place] [id number] PCP - General Geriatric Medicine 02/13/25 documented as of this encounter
--- OUTSIDE RECORDS SUMMARY | 2025-07-03 18:41 | XMS_ITS | Encounter Summary ---
Author Organization [facility] Address [address] [place] [address] Care Team Providers Care Hvac R Instructor Name Role Phone Harris Gross MD Primary Care Provider [phone] Encounter Details Date Type Department Care Team (Late st Contact Info) Description 02/19/2025 Lab Requisition [facility] - Main Lab [address] [facility] [place] [address] Harris Gross MD [address] [place], [place] [phone] Other rn long term care (current) drug therapy Social History Tobacco Use [...] FOLATE Routine 02/19/2025 5:09 AM EDT Other rn long term care (current) drug therapy documented in this encounter Results * (ABNORMAL) Folate (02/19/2025 5:09 AM EDT) Folate >20.0(H) 2.8 - 17.0 ng/ml LAB CHEMISTRY METHOD 02/19/2025 8:26 AM EDT [facility] ([facility]) [facility] Blood Venous blood specimen / Unknown Venipuncture / Unknown 02/19/2025 5:09 AM EDT 02/19/2025 6:45 AM EDT Harris Gross MD LAB BLOOD ORDERABLES Final Resul t [facility] ([facility]) [facility] [address] [place] [address], documented in this encounter Visit Diagnoses Diagnosis Other skilled nursing (current) drug therapy documented in this encounter Care Teams Hvac R Instructor Relationship Specialty Start Date End Date Harris Gross MD [address] [place] [address] [address] [place] [address] PCP - General Geriatric Medicine 02/13/25 documented as of this encounter
--- OUTSIDE RECORDS SUMMARY | 2025-07-03 18:41 | XMS_ITS | Encounter Summary ---
Author Organization [facility] Address [address] [place] [address] Care Team Providers Care Cook Fishing Vessel Name Role Phone Harris Gross MD Primary Care Provider [phone] Encounter Details Date Type Department Care Team (Late st Contact Info) Description 02/13/2025 Lab Requisition [facility] - Main Lab 299 [facility] [place] [address] Harris Gross MD [address] [place], [place] [phone] Vitamin D deficiency, unspecified; Gastrointestinal hemorrhage, unspecified; [...] * Vitamin B12 (02/13/2025 6:49 AM EDT) [facility] Vitamin B-12 391 250 - 900 pcg/mL LAB CHEMISTRY METHOD 02/13/2025 10:12 AM EDT [facility] Blood Venous blood specimen / Unknown Venipuncture / Unknown 02/13/2025 6:49 AM EDT 02/13/2025 8:56 AM EDT us Harris Gross MD LAB BLOOD ORDERABLES Final Resul t Performing Organization Address [facility]/ZIP Co de Phone Number [facility] [address] [place] [address], [place] [phone] * Vitamin D 25 hydroxy (02/13/2025 6:49 AM EDT) [facility] Vit D, 25-Hydroxy 57.4 30.0 - 80.0 ng/mL LAB CHEMISTRY METHOD 02/13/2025 11:18 AM EDT [facility] Blood Venous blood specimen / Unknown Venipuncture / Unknown 02/13/2025 6:49 AM EDT 02/13/2025 8:56 AM EDT us Harris Gross MD LAB BLOOD ORDERABLES Final Resul t [facility] [address] [place] [address], [place] [phone] * Thyroid stimulating hormone (02/13/2025 6:49 AM EDT) [facility] TSH 1.12 0.40 - 4.00 mcIU/mL LAB CHEMISTRY METHOD 02/13/2025 11:19 AM EDT [facility] Blood Venous blood specimen / Unknown Venipuncture / Unknown 02/13/2025 6:49 AM EDT 02/13/2025 8:56 AM EDT Harris Gross MD LAB BLOOD ORDERABLES Final Resul t [facility] [address] [place] [address], [place] [phone] * (ABNORMAL) Comprehensive metabolic panel (02/13/2025 6:49 AM EDT) Sodium 140 133 - 145 mmol/L LAB CHEMISTRY METHOD 02/13/2025 10:[address] [facility] Potassium 3.8 3.5 - 5.5 mmol/L LAB CHEMISTRY METHOD 02/13/2025 10:[address] [facility] Chloride 105 96 - 110 mmol/L LAB CHEMISTRY METHOD 02/13/2025 10:[address] [facility] CO2 29 21 - 32 mmol/L LAB CHEMISTRY METHOD 02/13/2025 10:[address] [facility] Anion Gap 6 3 - 11 LAB CHEMISTRY METHOD 02/13/2025 10:[address] [facility] Glucose 91 70 - 100 mg/dL LAB CHEMISTRY METHOD 02/13/2025 10:[address] [facility] BUN 24 5 - 25 mg/dL LAB CHEMISTRY METHOD 02/13/2025 10:[address] [facility] Creatinine 0.88 0.50 - 1.10 mg/dL LAB CHEMISTRY METHOD 02/13/2025 10:[address] [facility] eGFR 65 >=60 mL/min/1. 73m2 LAB CHEMISTRY METHOD 02/13/2025 10:[address] [facility] Comment:Calculation based on the Chronic Kidney Disease Epidemiology Collaboration (CKD-EPI) equation refit without adjustment for race. BUN/Creatinine Ratio 27.3 LAB CHEMISTRY METHOD 02/13/2025 10:[address] [facility] Calcium 9.2 8.5 - 10.5 mg/dL LAB CHEMISTRY METHOD 02/13/2025 10:[address] [facility] AST (SGOT) 14 10 - 42 unit/L LAB CHEMISTRY METHOD 02/13/2025 10:[address] [facility] ALT (SGPT) 14 10 - 60 unit/L LAB CHEMISTRY METHOD 02/13/2025 10:[address] [facility] Alkaline Phosphatase 88 42 - 121 unit/L LAB CHEMISTRY METHOD 02/13/2025 10:[address] [facility] Total Protein 5.9(L) 6.0 - 8.0 g/dL LAB CHEMISTRY METHOD 02/13/2025 10:[address] [facility] Albumin 3.1(L) 3.2 - 5.0 g/dL LAB CHEMISTRY METHOD 02/13/2025 10:[address] [facility] Total Bilirubin 0.4 0.0 - 1.4 mg/dL LAB CHEMISTRY METHOD 02/13/2025 10:[address] [facility] Blood Venous blood specimen / Unknown Venipuncture / Unknown 02/13/2025 6:49 AM EDT 02/13/2025 8:56 AM EDT us Harris Gross MD LAB BLOOD ORDERABLES Final Resul t [facility] [address] [place] [address], * (ABNORMAL) Complete blood count (02/13/2025 6:49 AM EDT) WBC 3.3(L) 4.8 - 10.8 K/mcL LAB HEMETOLOGY METHOD 02/13/2025 9:[address] [facility] RBC 2.90(L) 3.80 - 4.80 M/mcL LAB HEMETOLOGY METHOD 02/13/2025 9:[address] [facility] Hemoglobin 8.4(L) 11.5 - 16.0 g/dL LAB HEMETOLOGY METHOD 02/13/2025 9:[address] [facility] Hematocrit 27.2(L) 35.0 - 47.0 % LAB HEMETOLOGY METHOD 02/13/2025 9:[address] [facility] MCV 94.8 79.0 - 98.0 FL LAB HEMETOLOGY METHOD 02/13/2025 9:[address] [facility] MCH 29.3 27.0 - 32.0 pcg LAB HEMETOLOGY METHOD 02/13/2025 9:[address] [facility] MCHC 30.9(L) 32.0 - 37.0 g/dL LAB HEMETOLOGY METHOD 02/13/2025 9:[address] [facility] RDW 14.9 11.0 - 15.0 % LAB HEMETOLOGY METHOD 02/13/2025 9:[address] [facility] Platelets 132 130 - 400 K/mcL LAB HEMETOLOGY METHOD 02/13/2025 9:[address] [facility] MPV 11.8(H) 7.0 - 11.0 FL LAB HEMETOLOGY METHOD 02/13/2025 9:[address] [facility] NRBC 0.0 <1.0 % LAB HEMETOLOGY METHOD 02/13/2025 9:[address] [facility] NRBC Absolute 0.00 <0.10 K/mcL LAB HEMETOLOGY METHOD 02/13/2025 9:[address] [facility] Blood Venous blood specimen / Unknown Venipuncture / Unknown 02/13/2025 6:49 AM EDT 02/13/2025 8:56 AM EDT Harris Gross MD LAB BLOOD ORDERABLES Final Resul t [facility] ([facility]) [facility] [address] [place] [address], documented in this encounter Visit Diagnoses Diagnosis Vitamin D deficiency, unspecified Gastrointestinal hemorrhage, unspecified Aphagia Anorexia documented in this encounter Care Teams Cook Fishing Vessel Relationship Specialty Start Date End Date Harris Gross MD [address] [place] [address] [address] [place] [address] PCP - General Geriatric Medicine 02/13/25 documented as of this encounter
--- OUTSIDE RECORDS SUMMARY | 2025-07-03 18:42 | XMS_ITS | Clinical Summary ---
Author Organization [address] Address [address] [place] [address] Phone Care Team Providers Care Robotics Technician Name Role Phone Harris Gross MD Primary Care Provider [phone] Encounters Date Type Department Care Team Description 06/21/2025 Lab Requisition [facility] Lab [address] [place] [phone] Harris Gross MD Essential (primary) hypertension; Chronic obstructive pulmonary disease, unspecified (CMS/HCC V24, CMS/HCC V28) 06/13/2025 Lab Requisition [facility] [address] [place] [phone] Harris Gross MD Essential (primary) hypertension; Chronic obstructive pulmonary disease, unspecified (CMS/HCC V24, CMS/HCC V28) 06/06/2025 Lab Requisition [facility] [address] [place] [phone] Harris Gross MD Essential (primary) hypertension; Chronic obstructive pulmonary disease, unspecified (CMS/HCC V24, CMS/HCC V28) 05/30/2025 Lab Requisition [facility] [address] [place] [phone] Harris Gross MD Essential (primary) hypertension; Chronic obstructive pulmonary disease, unspecified (CMS/HCC V24, CMS/HCC V28) 05/30/2025 Lab Requisition [facility] [address] [place] [phone] Harris Gross MD Frequency of micturition 05/28/2025 Lab Requisition [facility] [address] [place] [phone] Harris Gross MD Essential (primary) hypertension 05/25/2025 Lab Requisition [facility] [address] [place] [phone] Harris Gross MD Essential (primary) hypertension; Chronic obstructive pulmonary disease, unspecified (CMS/HCC V24, CMS/HCC V28); Gastro-esophageal reflux disease without esophagitis; Anemia, unspecified 05/22/2025 Lab Requisition [facility] Lab [address] [place] [phone] Harris Gross MD Essential (primary) hypertension; Anemia, unspecified 05/21/2025 Lab Requisition [facility] Lab [address] [place] [phone] Harris Gross MD Essential (primary) hypertension; Chronic [...] K/mcL LAB HEMETOLOGY METHOD 06/16/2025 10:06 AM [facility] RBC 2.80(L) 3.80 - 4.80 M/mcL LAB HEMETOLOGY METHOD 06/16/2025 10:06 AM [facility] Hemoglobin 8.3(L) 11.5 - 16.0 g/dL LAB HEMETOLOGY METHOD 06/16/2025 10:06 AM [facility] Hematocrit 27.0(L) 35.0 - 47.0 % LAB HEMETOLOGY METHOD 06/16/2025 10:06 AM [facility] MCV 95.7 79.0 - 98.0 FL LAB HEMETOLOGY METHOD 06/16/2025 10:[address] [facility] MCH 29.4 27.0 - 32.0 pcg LAB HEMETOLOGY METHOD 06/16/2025 10:[address] [facility] MCHC 30.7(L) 32.0 - 37.0 g/dL LAB HEMETOLOGY METHOD 06/16/2025 10:[address] [facility] RDW 17.9(H) 11.0 - 15.0 % LAB HEMETOLOGY METHOD 06/16/2025 10:[address] [facility] Platelets 119(L) 130 - 400 K/mcL LAB HEMETOLOGY METHOD 06/16/2025 10:[address] [facility] MPV 12.1(H) 7.0 - 11.0 FL LAB HEMETOLOGY METHOD 06/16/2025 10:[address] [facility] NRBC 0.0 <1.0 % LAB HEMETOLOGY METHOD 06/16/2025 10:06 AM [facility] NRBC Absolute 0.00 <0.10 K/mcL LAB HEMETOLOGY METHOD 06/16/2025 10:06 AM [facility] Blood Venous blood specimen / Unknown Venipuncture / Unknown 06/16/2025 5:01 AM EDT 06/16/2025 9:03 AM EDT us Harris Gross MD LAB BLOOD ORDERABLES Final Resul t [facility] [address] [place] [address], * (ABNORMAL) Basic metabolic panel (06/16/2025 5:01 AM EDT) Only the most recent of6 resultswithin the time period is included. [facility] Sodium 138 133 - 145 mmol/L LAB CHEMISTRY METHOD 06/16/2025 10:31 AM [facility] Potassium 4.3 3.5 - 5.5 mmol/L LAB CHEMISTRY METHOD 06/16/2025 10:31 AM [facility] Chloride 104 96 - 110 mmol/L LAB CHEMISTRY METHOD 06/16/2025 10:31 AM [facility] CO2 28 21 - 32 mmol/L LAB CHEMISTRY METHOD 06/16/2025 10:31 AM [facility] Anion Gap 6 3 - 11 LAB CHEMISTRY METHOD 06/16/2025 10:31 AM [facility] Glucose 77 70 - 100 mg/dL LAB CHEMISTRY METHOD 06/16/2025 10:31 AM [facility] BUN 27(H) 5 - 25 mg/dL LAB CHEMISTRY METHOD 06/16/2025 10:31 AM [facility] Creatinine 0.89 0.50 - 1.10 mg/dL LAB CHEMISTRY METHOD 06/16/2025 10:31 AM [facility] eGFR 64 >=60 mL/min/1. 73m2 LAB CHEMISTRY METHOD 06/16/2025 10:31 AM [facility] Comment:Calculation based on the Chronic Kidney Disease Epidemiology Collaboration (CKD-EPI) equation refit without adjustment for race. BUN/Creatinine Ratio 30.3 LAB CHEMISTRY METHOD 06/16/2025 10:31 AM [facility] Calcium 9.3 8.5 - 10.5 mg/dL LAB CHEMISTRY METHOD 06/16/2025 10:31 AM [facility] Blood Venous blood specimen / Unknown Venipuncture / Unknown 06/16/2025 5:01 AM EDT 06/16/2025 9:03 AM EDT us Harris Gross MD LAB BLOOD ORDERABLES Final Resul t [facility] [address] [place] [address], [place] [phone] * Urinalysis with reflex microscopic (05/29/2025 8:00 AM EDT) Specific [place] Urine 1.016 1.003 - 1.030 LAB URINALYSIS - AUTOMATED METHOD 05/30/2025 8:36 AM [facility] pH, Urine 5.5 5.0 - 8.0 pH LAB URINALYSIS - AUTOMATED METHOD 05/30/2025 8:36 AM [facility] Leukocytes, Urine Negative Negative LAB URINALYSIS - AUTOMATED METHOD 05/30/2025 8:36 AM [facility] Nitrite, Urine Negative Negative LAB URINALYSIS - AUTOMATED METHOD 05/30/2025 8:36 AM [facility] Protein, Urine Negative <=Trace mg/dL LAB URINALYSIS - AUTOMATED METHOD 05/30/2025 8:36 AM [facility] Glucose, Urine Negative Negative mg/dL LAB URINALYSIS - AUTOMATED METHOD 05/30/2025 8:36 AM [facility] Ketones, Urine Negative Negative mg/dL LAB URINALYSIS - AUTOMATED METHOD 05/30/2025 8:36 AM [facility] Urobilinogen, Urine 0.2 0.2 - 1.0 mg/dL LAB URINALYSIS - AUTOMATED METHOD 05/30/2025 8:36 AM [facility] Bilirubin, Urine Negative Negative LAB URINALYSIS - AUTOMATED METHOD 05/30/2025 8:36 AM [facility] Blood, Urine Negative Negative LAB URINALYSIS - AUTOMATED METHOD 05/30/2025 8:36 AM [facility] Urine Urine specimen obtained by clean catch procedure / Unknown Non-blood Collection / Unknown 05/29/2025 8:00 AM EDT 05/30/2025 8:05 AM EDT us Harris Gross MD LAB URINE ORDERABLES Final Resul t Performing Organization Address City/[facility]/ZIP Co de Phone Number [facility] [address] [place] [address], [place] [phone] * (ABNORMAL) Culture urine (05/29/2025 8:00 AM EDT) Culture, Urine 10,000-49,000 CFU/mL Streptococcus viridans group(A) 06/03/2025 8:[address] [facility] Comment: Susceptibility testing not routinely performed. If further therapeutic information is required, please consult an infectious disease specialist. The organism value for this result has been updated. These results have been appended to the previously preliminary verified report. Urine Urine specimen obtained by clean catch procedure / Unknown Non-blood Collection / Unknown 05/29/2025 8:00 AM EDT 05/30/2025 8:[address] [facility] - 06/03/2025 8:59 AM EDT Additional colony types present in insignificant amounts. us Harris Gross MD LAB MICROBIOLOGY - GENERAL ORDER ROEL Final Result Performing Organization Address [facility] Co de Phone Number [facility] [address] [place] [address], [place] [phone] * Iron and TIBC (05/26/2025 4:52 AM EDT) Iron 88 40 - 150 mcg/dL LAB CHEMISTRY METHOD 05/26/2025 12:[address] [facility] TIBC 358 250 - 450 mcg/dL LAB CHEMISTRY METHOD 05/26/2025 12:[address] [facility] Iron Saturation 25 15 - 50 % LAB CHEMISTRY METHOD 05/26/2025 12:[address] [facility] Blood Venous blood specimen / Unknown Venipuncture / Unknown 05/26/2025 4:52 AM EDT 05/26/2025 10:18 AM EDT us Harris Gross MD LAB BLOOD ORDERABLES Final Resul t Performing Organization Address City/[facility]/ZIP Co de Phone Number [facility] [address] [place] [address], [place] [phone] * Ferritin (05/26/2025 4:52 AM EDT) [facility] Ferritin 23 8 - 252 ng/mL LAB CHEMISTRY METHOD 05/26/2025 12:[address] [facility] Blood Venous blood specimen / Unknown Venipuncture / Unknown 05/26/2025 4:52 AM EDT 05/26/2025 10:18 AM EDT us Harris Gross MD LAB BLOOD ORDERABLES Final Resul t Performing Organization Address City/[facility]/ZIP Co de Phone Number [facility] [address] [place] [address], [place] [phone] * (ABNORMAL) Comprehensive metabolic panel (05/21/2025 4:56 AM EDT) [facility] Sodium 138 133 - 145 mmol/L LAB CHEMISTRY METHOD 05/21/2025 11:[address] [facility] Potassium 4.2 3.5 - 5.5 mmol/L LAB CHEMISTRY METHOD 05/21/2025 11:[address] [facility] Chloride 104 96 - 110 mmol/L LAB CHEMISTRY METHOD 05/21/2025 11:[address] [facility] CO2 29 21 - 32 mmol/L LAB CHEMISTRY METHOD 05/21/2025 11:[address] [facility] Anion Gap 5 3 - 11 LAB CHEMISTRY METHOD 05/21/2025 11:[address] [facility] Glucose 74 70 - 100 mg/dL LAB CHEMISTRY METHOD 05/21/2025 11:07 AM [facility] BUN 28(H) 5 - 25 mg/dL LAB CHEMISTRY METHOD 05/21/2025 11:07 AM [facility] Creatinine 0.96 0.50 - 1.10 mg/dL LAB CHEMISTRY METHOD 05/21/2025 11:07 AM [facility] eGFR 58(L) >=60 mL/min/1. 73m2 LAB CHEMISTRY METHOD 05/21/2025 11:07 AM [facility] Comment:Calculation based on the Chronic Kidney Disease Epidemiology Collaboration (CKD-EPI) equation refit without adjustment for race. BUN/Creatinine Ratio 29.2 LAB CHEMISTRY METHOD 05/21/2025 11:07 AM [facility] Calcium 8.7 8.5 - 10.5 mg/dL LAB CHEMISTRY METHOD 05/21/2025 11:07 AM [facility] AST (SGOT) 17 10 - 42 unit/L LAB CHEMISTRY METHOD 05/21/2025 11:07 AM [facility] ALT (SGPT) 13 10 - 60 unit/L LAB CHEMISTRY METHOD 05/21/2025 11:07 AM [facility] Alkaline Phosphatase 86 42 - 121 unit/L LAB CHEMISTRY METHOD 05/21/2025 11:07 AM [facility] Total Protein 6.1 6.0 - 8.0 g/dL LAB CHEMISTRY METHOD 05/21/2025 11:07 AM [facility] Albumin 3.4 3.2 - 5.0 g/dL LAB CHEMISTRY METHOD 05/21/2025 11:07 AM [facility] Total Bilirubin 0.2 0.0 - 1.4 mg/dL LAB CHEMISTRY METHOD 05/21/2025 11:07 AM [facility] Blood Venous blood specimen / Unknown Venipuncture / Unknown 05/21/2025 4:56 AM EDT 05/21/2025 10:01 AM EDT us Harris Gross MD LAB BLOOD ORDERABLES Final Resul t [facility] ([facility] LAB [address] [place] [address], [place] [phone] from Last 3 Months Insurance MEDICARE [facility] Advance Directives Documents on File Type Date Recorded 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
[2025-07-03 19:05] LABS: Appearance Urine Clear; Glucose Urine UA Negative (Negative); PH 7.0 (5.0-9.0); Specific Gravity - Urine 1.010 (1.005-1.025)
== END 2025-07-03 17:49 | disposition home or self-care (01) ==
LOC: HO.LNP 17:48
PROVIDERS: Visit Provider Internal Medicine
DX: R30.0 Dysuria (principal)
CPT/HCPCS: 81003

== ENCOUNTER 2025-07-17 13:05 | Outpatient (AMB) | payer MEDICARE, OTHER, SELFPAY ==
--- NOTE | 2025-07-17 13:12 | A.OFFVIS_ITS ---
Intake Visit Reasons: Increased incontinence Intake Note: Patient is present for INCREASED INCONTINENCE Urology Medication:MIRABEGRON Antibiotic Allergy:SULFA,CIPROFLOXACIN,NITROFURANTION Blood Thinner:NONE TODAY'S PVR:0ML'S Powder Coat Painter Required: No Allergies buspirone Allergy (Intermediate, Verified 07/17/25 21:40) Rash Sulfa (Sulfonamide Antibiotics) Allergy (Intermediate, Verified 07/17/25 21:40) RASH cefuroxime Allergy (Unknown, Verified 07/17/25 21:40) Unknown garlic (GARLIC) Allergy (Unknown, Verified 07/17/25 21:40) PER H&P metronidazole (From FLAGYL) Allergy (Unknown, Verified 07/17/25 21:40) OCULAR MIGRAINES penicillamine Allergy (Unknown, Verified 07/17/25 21:40) Unknown ciprofloxacin Adverse Reaction (Intermediate, Verified 07/17/25 21:40) neuropathic pain lisinopril Adverse Reaction (Intermediate, Verified 07/17/25 21:40) Cough loratadine (From Claritin) Adverse Reaction (Mild, Verified 07/17/25 21:40) Fatigued nitrofurantoin Adverse Reaction (Mild, Verified 07/17/25 21:40) GI side effects cefuroxime Allergy (Intermediate, Uncoded 07/17/25 21:40) wheezy cough/itch flagyl Allergy (Unknown, Uncoded 07/17/25 21:40) Unknown From KEFLEX Allergy (Unknown, Uncoded 07/17/25 21:40) RASH Metoprolol Tartrate Allergy (Unknown, Uncoded 07/17/25 21:40) Unknown Sulfacet-R Allergy (Unknown, Uncoded 07/17/25 21:40) Unknown Medication List - Last Reconciled 07/17/25 by GUADALUPE Hendrickson acetaminophen 325 mg PO Q4H PRN alprazolam 0.125 mg PO BID bupropion HCl 75 mg PO DAILY cholecalciferol (vitamin D3) (Vitamin D3) 50 mcg PO DAILY citalopram (Celexa) 20 mg PO BID clopidogrel 75 mg PO DAILY fluticasone propionate 50 mcg/actuation 1 spray intranasal DAILY PRN mirabegron ER (Myrbetriq) 50 mg PO BEDTIME pantoprazole (Protonix) 40 mg PO DAILY@0630 polyethylene glycol 3350 (Miralax) 17 grams PO DAILY PRN simethicone 80 mg PO BID-TID PRN HPI Comments Details: Bella is a very pleasant 84-year-old female patient of Dr. Garcia was accompanied by her son at today's office visit. She has a past medical history of constipation, anxiety, former smoker, GERD, diverticulitis, hypertension, irritable bowel syndrome, aortic stenosis status post TAVR, CVA, hyperlipidemia, COPD, and heart murmur. In discussion with the patient today she reports noting nocturnal enuresis over the last 2 months. Of note, patient was initially seen over a year ago here at the office for recurrent urinary tract infections at which time she was started on Estrace cream in a retroperitoneal ultrasound was ordered for further assessment evaluation. However in discussion with the patient and her son today she reports shortly after her visit she underwent a TAVR procedure for severe aortic stenosis. She reports shortly after her surgical procedure she experienced multiple strokes and has since been in and out of rehab for ongoing issues with recurrent falls and memory issues. She reports at this time her current and main concern is her nocturnal enuresis. She reports while in rehab she was given 25 mg of Myrbetriq and initially felt like she had improvement in her urinary symptoms however feels with her ongoing issues with constipation lower urinary tract symptoms have been variable. She reports shortly after her dose of Myrbetriq was increased and has not had any improvement in her lower urinary tract symptoms. She reports she does experience episodes of urinary urgency and frequency however feels nocturnal enuresis is her most bothersome urinary issue. In office urinalysis results reviewed with the patient today. PVR 0 mL. She otherwise denies hematuria, dysuria, foul smelling urine, changes to urinary stream, flank pain, fever, and or chills. We did discussed obtaining retroperitoneal ultrasound for further assessment evaluation. We also discussed potential causes of her lower urinary tract symptoms. We discussed further treatment options and risks and benefits of these treatment options. She does endorse to drinking increased amounts of soda (Coca-Cola and sahil gume). All questions were answered. She otherwise offers no other issues or concerns at this time. [facility] Medical History Mood disorder Severe aortic stenosis Dizziness Nonspecific low blood pressure reading Annual wellness visit Acute diverticulitis LLQ abdominal pain Contusion of right lower leg Otitis media Cough Bronchitis Pelvic pain Chronic cough Elevated IgE level Status post fall Hip pain Post-menopausal URI (upper respiratory infection) Sensation of pressure in bladder area Chest pain Elevated blood sugar Oral candidiasis GERD (gastroesophageal reflux disease) Pulmonary nodule HTN (hypertension) Heart palpitations Constipation Breast cancer screening Breast pain, left Elevated vitamin B12 level Neck muscle spasm Strain of neck muscle Low back pain Pubic ramus fracture Sore throat Skin tear of upper arm without complication Head injury, acute, without loss of consciousness Fall Medication noncompliance due to cognitive impairment RLQ abdominal pain Sinusitis Flu syndrome Precordial chest pain Atypical chest pain Cold intolerance Former smoker Abnormal lung sounds Fever Bilateral calf pain Nausea Left lower quadrant abdominal pain Dysuria Fatigue Lower extremity weakness Aortic stenosis Obstipation Dark stools Lower abdominal pain Gastroenteritis Neck pain on right side Back pain Rhinitis Elevated BP without diagnosis of hypertension Non-rheumatic aortic stenosis Diverticulitis GERD (gastroesophageal reflux disease) Cat scratch Cat bite Epigastric discomfort Diarrhea Neuropathy Arthritis GERD (gastroesophageal reflux disease) HTN (hypertension) Irritable bowel Heart murmur Surgical History S/P AVR S/P TAVR (transcatheter aortic valve replacement) Hx of esophagogastroduodenoscopy Hx of colonoscopy History of tonsillectomy History of appendectomy Family History Father No problems noted. Mother No problems noted. Social History Household Members: Children Housing: House Are you a primary morning caregiver to a significant other at home: No Do you presently have visiting nurse or other home services: Yes Alcohol intake: never Comment: Pt still ambulate on her own even though alarms are on Patient Tobacco Use Status: Former Tobacco user Tobacco use type: Cigarette Years Smoked: 55 e-Cigarette/Vaping Use: Never Used Second Hand Smoke Exposure: No Advance Directives Date on File: 09/21/23 service: No Current occupational status: retired Cognitive needs: No Hearing needs: No Vision needs: Yes (glasses) Review of Systems Const All systems reviewed & are unremarkable except as noted in HPI and below Physical Exam Const General: cooperative, healthy appearing, comfortable, no acute distress, well developed, alert and awake Orientation/consciousness: Other orientation findings (Forgetful) HEENT Head: Yes normal to inspection, Yes normocephalic and Yes atraumatic Ears: hearing grossly normal bilaterally Eyes General: appearance normal, both eyes and all related structures Neck Neck: Yes normal visual inspection and Yes trachea midline Chest Chest palpation & inspection: normal inspection of the chest Resp Effort & Inspection: normal respiratory effort and able to speak in complete sentences Cardio Rate: regular rate GI Inspection: Yes normal to inspection General: Yes no CVA tenderness Back/Spine/Pelvis Back: no CVA tenderness Skin General skin exam: no rashes or lesions noted Extrem General: Yes normal to inspection Psych Appearance: grossly normal and well kempt Mental Status: mental status grossly normal Speech and movement: Normal speech and movement present and Clear speech present Affect: normal affect Attitude: cooperative Thought process: Normal thought process present Thought content: Normal thought content present Insight: Limited insight present (Psych) Judgement: Limited judgement present (Psych) Office Procedures Post Void Residual Post Residual Void Post Void Residual (PVR): 0 [id number] Void Residual by ultrasound Results AMB Urinalysis, Automated UA Leukoctes 0 Adriane/uL Last Edit by ISATU Estevez on 07/17/25 16:01 UA Nitrite Negative Last Edit by ISATU Estevez on 07/17/25 16:01 UA Urobilinogen 0.2 mg/dL Last Edit by ISATU Estevez on 07/17/25 16:0 1 UA Protein 15 mg/dL Last Edit by ISATU Estevez on 07/17/25 16:01 UA pH 6.0 Last Edit by ISATU Estevez on 07/17/25 16:01 UA Blood 25 Larry/uL Last Edit by ISATU Estevez on 07/17/25 16:01 UA Specific Huntley 1.015 Last Edit by ISATU Estevez on 07/17/25 16: 01 UA Ketone Negative Last Edit by ISATU Estevez on 07/17/25 16:01 UA Bilirubin 0 mg/dL Last Edit by ISATU Estevez on 07/17/25 16:01 UA Glucose 1000 mg/dL Last Edit by ISATU Estevez on 07/17/25 16:01 Results Reviewed Results Reviewed: Laboratory Last Values Urine pH (Auto) 6.0 07/17/25 16:01 Specific Huntley (Auto) 1.015 07/17/25 16:01 Urine Protein (Auto) 15 mg/dL 07/17/25 16:01 Glucose (UA)(Auto) 1000 mg/dL 07/17/25 16:01 Urine Ketones (Auto) Negative 07/17/25 16:01 Urine Blood (Auto) 25 Larry/uL 07/17/25 16:01 Urine Nitrite (Auto) Negative 07/17/25 16:01 Urine Bilirubin (Auto) 0 mg/dL 07/17/25 16:01 Urine Urobilinogen (Auto) 0.2 mg/dL 07/17/25 16:01 Leukocyte Esterase (Auto) 0 Adriane/uL 07/17/25 16:01 Assessment & Plan Assessment & Plan (1) Incontinence: Code(s): R32 - Unspecified urinary incontinence Category: Medical (2) Nocturnal enuresis: Code(s): N39.44 - Nocturnal enuresis Category: Medical Plan In office urinalysis results with the patient today; as noted above. PVR 0 mL. Will obtain retroperitoneal ultrasound for further assessment evaluation. We did discuss potential causes of lower urinary tract symptoms as well as further treatment options and risks and benefits of these treatment options. Continue Myrbetriq. We did discussed potential near future in office cystoscopy and or urodynamics for further assessment evaluation. We discussed bladder triggers and irritants. We discussed the importance of limiting fluids 2-3 hours prior to bed. All questions were answered. Follow-up in 3 months with imaging and PVR; or sooner with any issues, concerns, and or questions. Orders: Orders US retroperitoneal comp 07/17/25 R32 - Unspecified urinary incontinence AMB Urinalysis Automated 07/17/25 Z13.9 - Encounter for screening, unspecified Patient Instructions: The patient had an opportunity to ask questions regarding the treatment plan. All questions were answered. Physical exam, labs, and imaging were discussed and reviewed in detail. As well as risks, benefits, and discussion of treatment choices. No major barriers to understanding were identified. The patient expressed understanding and agreement with the above treatment plan. The patient was made aware they should contact our office by phone for worsening of their current condition, the appearance of new symptoms, or with any questions or concerns. Compliance is encouraged with any medications and follow up testing that is ordered. It is a privilege to be allowed the opportunity to participate in? your urological care.? Again, if you have any questions or concerns If you have any questions or concerns please do not hesitate to contact me. The office is [phone]. This note is constructed using voice recognition software. While every effort has been made to ensure accuracy interventional technologist errors may have been included. Yours sincerely, SOWMYA Hendrickson-JENNIFER Coding Level of Care Code Est Pt Level 4 (01457) Complex EM visit Add On G2211 Diagnoses Incontinence R32 Nocturnal enuresis N39.44 CPT Codes Post Residual Void - PVR CPT Code: 36930-Tsit Void Residual by ultrasound ([id number]) Time Spent (min) 45
--- OUTSIDE RECORDS SUMMARY | 2025-07-17 16:23 | XMS_ITS | Encounter Summary ---
Author Organization [facility] Address [address] [place] [address] Care Team Providers Care Human Resources Manager Manufacturing Name Role Phone Harris Gross MD Primary Care Provider [phone] Encounter Details Date Type Department Care Team (Late st Contact Info) Description 05/21/2025 Lab Requisition [facility] - Main Lab [address] [facility] [place] [address] Harris Gross MD [address] [place], [place] [id number] Essential (primary) hypertension; Chronic obstructive pulmonary disease, [...] mmol/L LAB CHEMISTRY METHOD 05/21/2025 11:07 AM [facility] Potassium 4.2 3.5 - 5.5 mmol/L LAB CHEMISTRY METHOD 05/21/2025 11:07 AM [facility] Chloride 104 96 - 110 mmol/L LAB CHEMISTRY METHOD 05/21/2025 11:07 AM [facility] CO2 29 21 - 32 mmol/L LAB CHEMISTRY METHOD 05/21/2025 11:07 AM [facility] Anion Gap 5 3 - 11 LAB CHEMISTRY METHOD 05/21/2025 11:07 AM [facility] Glucose 74 70 - 100 mg/dL LAB CHEMISTRY METHOD 05/21/2025 11:07 AM [facility] BUN 28(H) 5 - 25 mg/dL LAB CHEMISTRY METHOD 05/21/2025 11:07 AM [facility] Creatinine 0.96 0.50 - 1.10 mg/dL LAB CHEMISTRY METHOD 05/21/2025 11:07 AM [facility] eGFR 58(L) >=60 mL/min/1. 73m2 LAB CHEMISTRY METHOD 05/21/2025 11:07 AM [facility] Comment:Calculation based on the Chronic Kidney Disease Epidemiology Collaboration (CKD-EPI) equation refit without adjustment for race. BUN/Creatinine Ratio 29.2 LAB CHEMISTRY METHOD 05/21/2025 11:07 AM [facility] Calcium 8.7 8.5 - 10.5 mg/dL LAB CHEMISTRY METHOD 05/21/2025 11:07 AM [facility] AST (SGOT) 17 10 - 42 unit/L LAB CHEMISTRY METHOD 05/21/2025 11:07 AM [facility] ALT (SGPT) 13 10 - 60 unit/L LAB CHEMISTRY METHOD 05/21/2025 11:07 AM EDT [facility] Alkaline Phosphatase 86 42 - 121 unit/L LAB CHEMISTRY METHOD 05/21/2025 11:07 AM EDT [facility] Total Protein 6.1 6.0 - 8.0 g/dL LAB CHEMISTRY METHOD 05/21/2025 11:07 AM [facility] Albumin 3.4 3.2 - 5.0 g/dL LAB CHEMISTRY METHOD 05/21/2025 11:07 AM T [facility] Total Bilirubin 0.2 0.0 - 1.4 mg/dL LAB CHEMISTRY METHOD 05/21/2025 11:07 AM [facility] Blood Venous blood specimen / Unknown Venipuncture / Unknown 05/21/2025 4:56 AM EDT 05/21/2025 10:01 AM EDT us Harris Gross MD LAB BLOOD ORDERABLES Final Resul t [facility] [address] [place] [address], * (ABNORMAL) Complete blood count (05/21/2025 4:56 AM EDT) WBC 3.1(L) 4.8 - 10.8 K/[facility] LAB HEMETOLOGY [facility]25 [facility] RBC 2.50(L) 3.80 - 4.80 M/mcL LAB HEMETOLOGY METHOD 05/21/2025 10:[facility] Hemoglobin 6.9(L) 11.5 - 16.0 g/dL LAB HEMETOLOGY METHOD 05/21/2025 10:50 AM [facility] Hematocrit 22.8(L) 35.0 - 47.0 % LAB HEMETOLOGY METHOD 05/21/2025 10:50 AM EDT [facility] MCV 91.2 79.0 - 98.0 FL LAB HEMETOLOGY METHOD 05/21/2025 10:50 AM EDT [facility] MCH 27.6 27.0 - 32.0 pcg LAB HEMETOLOGY METHOD 05/21/2025 10:50 AM EDT [facility] MCHC 30.3(L) 32.0 - 37.0 g/dL LAB HEMETOLOGY METHOD 05/21/2025 10:50 AM EDT [facility] RDW 14.9 11.0 - 15.0 % LAB HEMETOLOGY METHOD 05/21/2025 10:50 AM EDT [facility] Platelets 149 130 - 400 K/mcL LAB HEMETOLOGY METHOD 05/21/2025 10:50 AM EDT [facility] MPV 11.7(H) 7.0 - 11.0 FL LAB HEMETOLOGY METHOD 05/21/2025 10:50 AM EDT [facility] NRBC 0.0 <1.0 % LAB HEMETOLOGY METHOD 05/21/2025 10:50 AM EDT [facility] NRBC Absolute 0.00 <0.10 K/mcL LAB HEMETOLOGY METHOD 05/21/2025 10:50 AM EDT [facility] Blood Venous blood specimen / Unknown Venipuncture / Unknown 05/21/2025 4:56 AM EDT 05/21/2025 10:01 AM EDT us Harris Gross MD LAB BLOOD ORDERABLES Final Resul t [facility] [address] [place] [address], documented in this encounter Visit Diagnoses Diagnosis Essential (primary) hypertension Unspecified essential hypertension Chronic obstructive pulmonary disease, unspecified (CMS/HCC V24, CMS/HCC V28) Dizziness and giddiness documented in this encounter Care Teams Human Resources Manager Manufacturing Relationship Specialty Start Date End Date Harris Gross MD [address] [place] [address] [address] [place] [address] PCP - General Geriatric Medicine 02/13/25 documented as of this encounter
--- OUTSIDE RECORDS SUMMARY | 2025-07-17 16:23 | XMS_ITS | Encounter Summary ---
Author Organization [facility] Address [address] [place] [address] Care Team Providers Care Fisher Diver Net Name Role Phone Harris Gross MD Primary Care Provider [phone] Encounter Details Date Type Department Care Team (Late st Contact Info) Description 05/28/[address] [facility] - Main Lab [address] [place] [address] Harris Gross MD [address] [place], [place] [id number] Essential (primary) hypertension Social History Tobacco Use [...] LAB CHEMISTRY METHOD 05/29/2025 10:23 AM EDT [facility] Potassium 4.4 3.5 - 5.5 mmol/L LAB CHEMISTRY METHOD 05/29/2025 10:23 AM [facility] Chloride 104 96 - 110 mmol/L LAB CHEMISTRY METHOD 05/29/2025 10:23 AM [facility] CO2 31 21 - 32 mmol/L LAB CHEMISTRY METHOD 05/29/2025 10:23 AM [facility] Anion Gap 5 3 - 11 LAB CHEMISTRY METHOD 05/29/2025 10:23 AM [facility] Glucose 76 70 - 100 mg/dL LAB CHEMISTRY METHOD 05/29/2025 10:23 AM [facility] BUN 21 5 - 25 mg/dL LAB CHEMISTRY METHOD 05/29/2025 10:23 AM [facility] Creatinine 0.86 0.50 - 1.10 mg/dL LAB CHEMISTRY METHOD 05/29/2025 10:23 AM [facility] eGFR 67 >=60 mL/min/1. 73m2 LAB CHEMISTRY METHOD 05/29/2025 10:23 AM [facility] Comment:Calculation based on the Chronic Kidney Disease Epidemiology Collaboration (CKD-EPI) equation refit without adjustment for race. BUN/Creatinine Ratio 24.4 LAB CHEMISTRY METHOD 05/29/2025 10:23 AM [facility] Calcium 9.0 8.5 - 10.5 mg/dL LAB CHEMISTRY METHOD 05/29/2025 10:23 AM [facility] Blood Venous blood specimen / Unknown Venipuncture / Unknown 05/29/2025 6:50 AM EDT 05/29/2025 9:14 AM EDT us Harris Gross MD LAB BLOOD ORDERABLES Final Resul t [facility] [address] [place] [address], * (ABNORMAL) Complete blood count (05/29/2025 6:50 AM EDT) Pathologist [facility] WBC 3.4(L) 4.8 - 10.8 K/mcL LAB HEMETOLOGY METHOD 05/29/2025 10:07 AM [facility] RBC 2.70(L) 3.80 - 4.80 M/mcL LAB HEMETOLOGY METHOD 05/29/2025 10:07 AM [facility] Hemoglobin 7.6(L) 11.5 - 16.0 g/dL LAB HEMETOLOGY METHOD 05/29/2025 10:07 AM [facility] Hematocrit 25.2(L) 35.0 - 47.0 % LAB HEMETOLOGY METHOD 05/29/2025 10:07 AM [facility] MCV 93.0 79.0 - 98.0 FL LAB HEMETOLOGY METHOD 05/29/2025 10:07 AM [facility] MCH 28.0 27.0 - 32.0 pcg LAB HEMETOLOGY METHOD 05/29/2025 10:07 AM [facility] MCHC 30.2(L) 32.0 - 37.0 g/dL LAB HEMETOLOGY METHOD 05/29/2025 10:07 AM [facility] RDW 16.5(H) 11.0 - 15.0 % LAB HEMETOLOGY METHOD 05/29/2025 10:07 AM [facility] Platelets 135 130 - 400 K/[facility] LAB HEMETOLOGY METHOD 05/29/2025 10:07 AM [facility] MPV 12.0(H) 7.0 - 11.0 FL LAB HEMETOLOGY METHOD 05/29/2025 10:07 AM [facility] NRBC 0.0 <1.0 % LAB HEMETOLOGY METHOD 05/29/2025 10:07 AM [facility] NRBC Absolute 0.00 <0.10 K/[facility] LAB HEMETOLOGY METHOD 05/29/2025 10:07 AM EDT [facility] Blood Venous blood specimen / Unknown Venipuncture / Unknown 05/29/2025 6:50 AM EDT 05/29/2025 9:14 AM EDT Harris Gross MD LAB BLOOD ORDERABLES Final Resul t [facility] [address] [place] [address], documented in this encounter Visit Diagnoses Diagnosis Essential (primary) hypertension Unspecified essential hypertension documented in this encounter Care Teams Fisher Diver [employer] Relationship Specialty Start Date End Date Harris Gross MD [address] [place] [address] [address] [place] [address] PCP - General Geriatric Medicine 02/13/25 documented as of this encounter
--- OUTSIDE RECORDS SUMMARY | 2025-07-17 16:23 | XMS_ITS | Encounter Summary ---
Author Organization [facility] Address [address] [place] [address] Care Team Providers Care Director Of Student Affairs Name Role Phone Harris Gross MD Primary Care Provider [phone] Encounter Details Date Type Department Care Team (Late st Contact Info) Description 05/25/2025 Lab Requisition [facility] - Main Lab [address] [facility] [place] [address] Harris Gross MD [address] [place], [place] [id number] Essential (primary) hypertension; Chronic obstructive pulmonary disease, [...] LAB CHEMISTRY METHOD 05/26/2025 12:57 PM EDT [facility] Blood Venous blood specimen / Unknown Venipuncture / Unknown 05/26/2025 4:52 AM EDT 05/26/2025 10:18 AM EDT us Harris Gross MD LAB BLOOD ORDERABLES Final Resul t [facility] [address] [place] [address], * Iron and TIBC (05/26/2025 4:52 AM EDT) Iron 88 40 - 150 mcg/dL LAB CHEMISTRY METHOD 05/26/2025 12:56 PM EDT [facility] TIBC 358 250 - 450 mcg/dL LAB CHEMISTRY METHOD 05/26/2025 12:56 PM EDT [facility] Iron Saturation 25 15 - 50 % LAB CHEMISTRY METHOD 05/26/2025 12:56 PM EDT [facility] Blood Venous blood specimen / Unknown Venipuncture / Unknown 05/26/2025 4:52 AM EDT 05/26/2025 10:18 AM EDT us Harris Gross MD LAB BLOOD ORDERABLES Final Resul t [facility] [address] [place] [address], * (ABNORMAL) Basic metabolic panel (05/26/2025 4:52 AM EDT) Sodium 141 133 - 145 mmol/L LAB CHEMISTRY METHOD 05/26/2025 12:56 PM EDT [facility] Potassium 4.8 3.5 - 5.5 mmol/L LAB CHEMISTRY METHOD 05/26/2025 12:56 PM [facility] Chloride 108 96 - 110 mmol/L LAB CHEMISTRY METHOD 05/26/2025 12:56 PM [facility] CO2 30 21 - 32 mmol/L LAB CHEMISTRY METHOD 05/26/2025 12:56 PM [facility] Anion Gap 3 3 - 11 LAB CHEMISTRY METHOD 05/26/2025 12:56 PM [facility] Glucose 75 70 - 100 mg/dL LAB CHEMISTRY METHOD 05/26/2025 12:56 PM [facility] BUN 21 5 - 25 mg/dL LAB CHEMISTRY METHOD 05/26/2025 12:56 PM [facility] Creatinine 0.98 0.50 - 1.10 mg/dL LAB CHEMISTRY METHOD 05/26/2025 12:56 PM [facility] eGFR 57(L) >=60 mL/min/1. 73m2 LAB CHEMISTRY METHOD 05/26/2025 12:56 PM [facility] Comment:Calculation based on the Chronic Kidney Disease Epidemiology Collaboration (CKD-EPI) equation refit without adjustment for race. BUN/Creatinine Ratio 21.4 LAB CHEMISTRY METHOD 05/26/2025 12:56 PM [facility] Calcium 9.1 8.5 - 10.5 mg/dL LAB CHEMISTRY METHOD 05/26/2025 12:56 PM EDT [facility] Blood Venous blood specimen / Unknown Venipuncture / Unknown 05/26/2025 4:52 AM EDT 05/26/2025 10:18 AM EDT us Harris Gross MD LAB BLOOD ORDERABLES Final Resul t [facility] [address] [place] [address], * (ABNORMAL) Complete blood count (05/26/2025 4:52 AM EDT) WBC 3.5(L) 4.8 - 10.8 K/mcL LAB HEMETOLOGY METHOD 05/26/2025 12:53 PM EDT [facility] RBC 2.70(L) 3.80 - 4.80 M/mcL LAB HEMETOLOGY METHOD 05/26/2025 12:53 PM EDT [facility] Hemoglobin 7.5(L) 11.5 - 16.0 g/dL LAB HEMETOLOGY METHOD 05/26/2025 12:53 PM EDT [facility] Hematocrit 25.0(L) 35.0 - 47.0 % LAB HEMETOLOGY METHOD 05/26/2025 12:53 PM EDT [facility] MCV 92.3 79.0 - 98.0 FL LAB HEMETOLOGY METHOD 05/26/2025 12:53 PM EDT [facility] MCH 27.7 27.0 - 32.0 pcg LAB HEMETOLOGY METHOD 05/26/2025 12:53 PM EDT [facility] MCHC 30.0(L) 32.0 - 37.0 g/dL LAB HEMETOLOGY METHOD 05/26/2025 12:53 PM EDT [facility] RDW 15.2(H) 11.0 - 15.0 % LAB HEMETOLOGY METHOD 05/26/2025 12:53 PM EDT [facility] Platelets 156 130 - 400 K/mcL LAB HEMETOLOGY METHOD 05/26/2025 12:53 PM EDT [facility] MPV 12.4(H) 7.0 - 11.0 FL LAB HEMETOLOGY METHOD 05/26/2025 12:53 PM EDT [facility] NRBC 0.0 <1.0 % LAB HEMETOLOGY METHOD 05/26/2025 12:53 PM EDT [facility] NRBC Absolute 0.00 <0.10 K/mcL [facility] 05/26/2025 12:53 PM EDT [facility] Blood Venous blood specimen / Unknown Venipuncture / Unknown 05/26/2025 4:52 AM EDT 05/26/2025 10:18 AM EDT Harris Gross MD LAB BLOOD ORDERABLES Final Resul t [facility] [address] [place] [address], documented in this encounter Visit Diagnoses Diagnosis Essential (primary) hypertension Unspecified essential hypertension Chronic obstructive pulmonary disease, unspecified (CMS/HCC V24, CMS/HCC V28) Gastro-esophageal reflux disease without esophagitis Anemia, unspecified documented in this encounter Care Teams Director Of Student Affairs Relationship Specialty Start Date End Date Harris Gross MD [address] [place] [address] [address] [place] [address] PCP - General Geriatric Medicine 02/13/25 documented as of this encounter
--- OUTSIDE RECORDS SUMMARY | 2025-07-17 16:23 | XMS_ITS | Encounter Summary ---
Author Organization [facility] Address [address] [place] [address] Care Team Providers Care Fire Control Officer Name Role Phone Harris Gross MD Primary Care Provider [phone] Encounter Details Date Type Department Care Team (Late st Contact Info) Description 05/22/2025 Lab Requisition [facility] - Main Lab [address] [facility] [place] [address] Harris Gross MD [address] [place], [place] [id number] Essential (primary) hypertension; Anemia, unspecified Social History [...] LAB CHEMISTRY METHOD 05/22/2025 10:28 AM EDT [facility] Potassium 3.9 3.5 - 5.5 mmol/L LAB CHEMISTRY METHOD 05/22/2025 10:28 AM [facility] Chloride 104 96 - 110 mmol/L LAB CHEMISTRY METHOD 05/22/2025 10:28 AM [facility] CO2 29 21 - 32 mmol/L LAB CHEMISTRY METHOD 05/22/2025 10:28 AM [facility] Anion Gap 5 3 - 11 LAB CHEMISTRY METHOD 05/22/2025 10:28 AM [facility] Glucose 66(L) 70 - 100 mg/dL LAB CHEMISTRY METHOD 05/22/2025 10:28 AM [facility] BUN 23 5 - 25 mg/dL LAB CHEMISTRY METHOD 05/22/2025 10:28 AM [facility] Creatinine 0.91 0.50 - 1.10 mg/dL LAB CHEMISTRY METHOD 05/22/2025 10:28 AM [facility] eGFR 62 >=60 mL/min/1. 73m2 LAB CHEMISTRY METHOD 05/22/2025 10:28 AM [facility] Comment:Calculation based on the Chronic Kidney Disease Epidemiology Collaboration (CKD-EPI) equation refit without adjustment for race. BUN/Creatinine Ratio 25.3 LAB CHEMISTRY METHOD 05/22/2025 10:28 AM [facility] Calcium 8.9 8.5 - 10.5 mg/dL LAB CHEMISTRY METHOD 05/22/2025 10:28 AM [facility] Blood Venous blood specimen / Unknown Venipuncture / Unknown 05/22/2025 5:27 AM EDT 05/22/2025 9:40 AM EDT us Harris Gross MD LAB BLOOD ORDERABLES Final Resul t [facility] [address] [place] [address], * (ABNORMAL) Complete blood count (05/22/2025 5:27 AM EDT) [facility] Signature WBC 2.8(L) 4.8 - 10.8 K/mcL LAB HEMETOLOGY METHOD 05/22/2025 11:24 AM [facility] RBC 2.50(L) 3.80 - 4.80 M/mcL LAB HEMETOLOGY METHOD 05/22/2025 11:24 AM [facility] Hemoglobin 7.0(L) 11.5 - 16.0 g/dL LAB HEMETOLOGY METHOD 05/22/2025 11:24 AM [facility] Hematocrit 23.2(L) 35.0 - 47.0 % LAB HEMETOLOGY METHOD 05/22/2025 11:24 AM [facility] MCV 91.3 79.0 - 98.0 FL LAB HEMETOLOGY METHOD 05/22/2025 11:24 AM [facility] MCH 27.6 27.0 - 32.0 pcg LAB HEMETOLOGY METHOD 05/22/2025 11:24 AM [facility] MCHC 30.2(L) 32.0 - 37.0 g/dL LAB HEMETOLOGY METHOD 05/22/2025 11:24 AM [facility] RDW 15.0 11.0 - 15.0 % LAB HEMETOLOGY METHOD 05/22/2025 11:24 AM [facility] Platelets 145 130 - 400 K/mcL LAB HEMETOLOGY METHOD 05/22/2025 11:24 AM [facility] MPV 11.9(H) 7.0 - 11.0 FL LAB HEMETOLOGY METHOD 05/22/2025 11:24 AM [facility] NRBC 0.0 <1.0 % LAB HEMETOLOGY METHOD 05/22/2025 11:24 AM EDT [facility] NRBC Absolute 0.00 <0.10 K/mcL LAB HEMETOLOGY METHOD 05/22/2025 11:24 AM EDT [facility] Blood Venous blood specimen / Unknown Venipuncture / Unknown 05/22/2025 5:27 AM EDT 05/22/2025 9:40 AM EDT us Harris Gross MD LAB BLOOD ORDERABLES Final Resul t [facility] [address] [place] [address], documented in this encounter Visit Diagnoses Diagnosis Essential (primary) hypertension Unspecified essential hypertension Anemia, unspecified documented in this encounter Care Teams Fire Control Officer Relationship Specialty Start Date End Date Harris Gross MD [address] [place] [address] [address] [place] [address] PCP - General Geriatric Medicine 02/13/25 documented as of this encounter
--- OUTSIDE RECORDS SUMMARY | 2025-07-17 16:24 | XMS_ITS | Encounter Summary ---
Author Organization [facility] Address [address] [place] [address] Care Team Providers Care Statistical Developer Name Role Phone Harris Gross MD Primary Care Provider [phone] Encounter Details Date Type Department Care Team (Late st Contact Info) Description 06/06/2025 Lab Requisition [facility] - Main Lab 299 [facility] [place] [address] Harris Gross MD [address] [place], [place] [phone] Essential (primary) hypertension; Chronic obstructive pulmonary disease, [...] MD LAB BLOOD ORDERABLES Final Resul t [facility] [address] [place] [address], * (ABNORMAL) Complete blood count (06/09/2025 4:55 AM EDT) WBC 3.1(L) 4.8 - 10.8 K/mcL LAB HEMETOLOGY METHOD 06/09/2025 11:14 AM EDT [facility] RBC 2.80(L) 3.80 - 4.80 M/mcL LAB HEMETOLOGY METHOD 06/09/2025 11:14 AM EDT [facility] Hemoglobin 8.0(L) 11.5 - 16.0 g/dL LAB HEMETOLOGY METHOD 06/09/2025 11:14 AM [facility] Hematocrit 26.2(L) 35.0 - 47.0 % LAB HEMETOLOGY METHOD 06/09/2025 11:14 AM EDT [facility] MCV 94.9 79.0 - 98.0 FL LAB HEMETOLOGY METHOD 06/09/2025 11:14 AM EDT [facility] MCH 29.0 27.0 - 32.0 pcg LAB HEMETOLOGY METHOD 06/09/2025 11:14 AM [facility] MCHC 30.5(L) 32.0 - 37.0 g/dL LAB HEMETOLOGY METHOD 06/09/2025 11:14 AM EDT [facility] RDW 18.4(H) 11.0 - 15.0 % LAB HEMETOLOGY METHOD 06/09/2025 11:14 AM EDT [facility] Platelets 130 130 - 400 K/mcL LAB HEMETOLOGY METHOD 06/09/2025 11:14 AM [facility] MPV 12.1(H) 7.0 - 11.0 FL LAB HEMETOLOGY METHOD 06/09/2025 11:14 AM EDT [facility] NRBC 0.0 <1.0 % LAB HEMETOLOGY METHOD 06/09/2025 11:14 AM EDT [facility] NRBC Absolute 0.00 <0.10 K/mcL LAB HEMETOLOGY METHOD 06/09/2025 11:14 AM EDT [facility] Blood Venous blood specimen / Unknown Venipuncture / Unknown 06/09/2025 4:55 AM EDT 06/09/2025 10:20 AM EDT us Harris Gross MD LAB BLOOD ORDERABLES Final Resul t [facility] [address] [place] [address], documented in this encounter Visit Diagnoses Diagnosis Essential (primary) hypertension Unspecified essential hypertension Chronic obstructive pulmonary disease, unspecified (CMS/HCC V24, CMS/HCC V28) documented in this encounter Care Teams Statistical Developer Relationship Specialty Start Date End Date Harris Gross MD [address] [place] [address] [address] [place] [address] PCP - General Geriatric Medicine 02/13/25 documented as of this encounter
--- OUTSIDE RECORDS SUMMARY | 2025-07-17 16:24 | XMS_ITS | Encounter Summary ---
Author Organization [facility] Address [address] [place] [address] Care Team Providers Care Rehabilitation Clerk Name Role Phone Harris Gross MD Primary Care Provider [phone] Encounter Details Date Type Department Care Team (Late st Contact Info) Description 06/21/2025 Lab Requisition [facility] - Main Lab 299 [facility] [place] [address] Harris Gross MD [address] [facility] [address] [place] [address] Essential (primary) hypertension; Chronic obstructive pulmonary disease, [...] V28) documented in this encounter Care Teams Rehabilitation Clerk Relationship Specialty Start Date End Date Harris Gross MD [address] [facility] [address] [place], [place] [phone] PCP - General Geriatric Medicine 02/13/25 documented as of this encounter
--- OUTSIDE RECORDS SUMMARY | 2025-07-17 16:24 | XMS_ITS | Encounter Summary ---
Author Organization [facility] Address [address] [place] [address] Care Team Providers Care Pipeline Integrity Engineer Name Role Phone Harris Gross MD Primary Care Provider [phone] Encounter Details Date Type Department Care Team (Late st Contact Info) Description 05/30/2025 Lab Requisition [facility] - Main Lab [address] [facility] [place] [address] Harris Gross MD [address] [place], [place] [phone] Frequency of micturition Social History Tobacco Use [...] reflex microscopic (05/29/2025 8:00 AM EDT) Specific [place] Urine 1.016 1.003 - 1.030 LAB URINALYSIS [...] Resul t [facility] [address] [place] [address], * (ABNORMAL) Culture urine (05/29/2025 8:00 AM [...] Final Result [facility] [address] [place] [address], documented in this encounter Visit Diagnoses Diagnosis Frequency of micturition Urinary frequency documented in this encounter Care Teams Pipeline Integrity Engineer Relationship Specialty Start Date End Date Harris Gross MD [address] [place] [address] [address] [place] [address] PCP - General Geriatric Medicine 02/13/25 documented as of this encounter
--- OUTSIDE RECORDS SUMMARY | 2025-07-17 16:24 | XMS_ITS | Encounter Summary ---
Author Organization [facility] Address [address] [place] [phone] Phone Care Team Providers Care Coating Supervisor Name Role Phone Norm Bates Unavailable [phone] Verónica Nielson MD Unavailable [phone] Bandar Renteria MD Unavailable [phone] Luis Milner CNP Unavailable [phone] Martha Estrada MD Unavailable [phone] David Walton MD Unavailable [phone] Deny Saleh DO Primary Care Provider [phone] Bandar Renteria MD Primary Care Provider Nick Gomez Primary Care Provider + Encounter Details Date Type Department Care Team (Late st Contact Info) Description 12/14/2020 Transcribe Orders [facility] [place] [address] [place] [address] Deyn Saleh DO [address] [facility] [address] [place], [place] [id number] [email or web address] Social History Tobacco Use Types Packs/Day Years [...] on filedocumented in this encounter Care Teams Coating Supervisor Relationship Specialty Start Date End Date Nunudelfina Deny SawyerDO [address] [place] [address] [email or web address] PCP - General Internal Medicine 08/09/17 01/09/21 Bandar Renteria MD [address] [place] [address] [address] PCP - General Internal Medicine 01/10/21 05/13/23 Nick Gomez PA [address] [place] [address] PCP - General Physician Inclined Railway Operator 05/14/23 Norm Bates PA [address] [place] [address] Historical LMR Provider 06/22/17 2 Verónica Nielson MD [address] [address] Historical LMR Provider 06/22/17 Bandar Renteria MD [address] [place] [address] [address] Historical LMR Provider 06/22/17 2 Luis Milner CNP [address] [address] [email or web address] Historical LMR Provider 06/22/17 09/11/21 Martha Estrada MD 4 [facility], [facility] [place] [address] [email or web address] Historical LMR Provider 06/22/17 David Walton MD [address] [place] [address] Historical LMR Provider 06/22/17 2 documented as of this encounter Additional Source Comments The information contained in this document represents components of the legal health record. It is not the complete legal health record.[facility]
--- OUTSIDE RECORDS SUMMARY | 2025-07-17 16:24 | XMS_ITS | Encounter Summary ---
Author Organization [facility] Address [address] [place] [address] Care Team Providers Care Plater Hot Dip Name Role Phone Harris Gross MD Primary Care Provider [phone] Encounter Details Date Type Department Care Team (Late st Contact Info) Description 02/13/2025 Lab Requisition [facility] - Main Lab 299 [facility] [place] [address] Harris Gross MD [address] [place], [place] [phone] Vitamin D deficiency, unspecified; Gastrointestinal hemorrhage, unspecified; [...] * Vitamin B12 (02/13/2025 6:49 AM EDT) [facility] Vitamin B-12 391 250 - 900 pcg/mL LAB CHEMISTRY METHOD 02/13/2025 10:12 AM EDT [facility] Blood Venous blood specimen / Unknown Venipuncture / Unknown 02/13/2025 6:49 AM EDT 02/13/2025 8:56 AM EDT us Harris Gross MD LAB BLOOD ORDERABLES Final Resul t Performing Organization Address [facility]/ZIP Co de Phone Number [facility] [address] [place] [address], [place] [phone] * Vitamin D 25 hydroxy (02/13/2025 6:49 AM EDT) [facility] Vit D, 25-Hydroxy 57.4 30.0 - 80.0 ng/mL LAB CHEMISTRY METHOD 02/13/2025 11:18 AM EDT [facility] Blood Venous blood specimen / Unknown Venipuncture / Unknown 02/13/2025 6:49 AM EDT 02/13/2025 8:56 AM EDT us Harris Gross MD LAB BLOOD ORDERABLES Final Resul t [facility] [address] [place] [address], [place] [phone] * Thyroid stimulating hormone (02/13/2025 6:49 AM EDT) [facility] TSH 1.12 0.40 - 4.00 mcIU/mL LAB CHEMISTRY METHOD 02/13/2025 11:19 AM EDT [facility] Blood Venous blood specimen / Unknown Venipuncture / Unknown 02/13/2025 6:49 AM EDT 02/13/2025 8:56 AM EDT Harris Gross MD LAB BLOOD ORDERABLES Final Resul t [facility] [address] [place] [address], [place] [phone] * (ABNORMAL) Comprehensive metabolic panel (02/13/2025 6:49 [...] MD LAB BLOOD ORDERABLES Final Resul t [facility] [address] [place] [address], * (ABNORMAL) Complete blood count (02/13/2025 6:49 [...] LAB BLOOD ORDERABLES Final Resul t [facility] [address] [place] [address], documented in this encounter Visit Diagnoses Diagnosis Vitamin D deficiency, unspecified Gastrointestinal hemorrhage, unspecified Aphagia Anorexia documented in this encounter Care Teams Plater Hot Dip Relationship Specialty Start Date End Date Harris Gross MD [address] [place] [address] [address] [place] [address] PCP - General Geriatric Medicine 02/13/25 documented as of this encounter
--- OUTSIDE RECORDS SUMMARY | 2025-07-17 16:24 | XMS_ITS | Clinical Summary ---
Author Organization [address] Address [address] [place] [address] Phone Care Team Providers Care Insurance Healthcare Representative Name Role Phone Harris Gross MD Primary Care Provider [phone] Encounters Date Type Department Care Team Description 06/21/2025 Lab Requisition [facility] Lab [address] [place] [phone] Harris Gross MD Essential (primary) hypertension; Chronic obstructive pulmonary disease, unspecified (CMS/HCC V24, CMS/HCC V28) 06/13/2025 Lab Requisition [facility] Lab [address] [place] [phone] Harris Gross MD Essential (primary) hypertension; Chronic obstructive pulmonary disease, unspecified (CMS/HCC V24, CMS/HCC V28) 06/06/2025 Lab Requisition [facility] Lab [address] [place] [phone] Harris Gross MD Essential (primary) hypertension; Chronic obstructive pulmonary disease, unspecified (CMS/HCC V24, CMS/HCC V28) 05/30/2025 Lab Requisition [facility] Lab [address] [place] [phone] Harris Gross MD Essential (primary) hypertension; Chronic obstructive pulmonary disease, unspecified (CMS/HCC V24, CMS/HCC V28) 05/30/2025 Lab Requisition [facility] Lab [address] [place] [phone] Harris Gross MD Frequency of micturition 05/28/2025 Lab Requisition [facility] Lab [address] [place] [phone] Harris Gross MD Essential (primary) hypertension 05/25/2025 Lab Requisition [facility] Lab [address] [place] [phone] Harris Gross MD Essential (primary) hypertension; Chronic obstructive pulmonary disease, unspecified (CMS/HCC V24, CMS/HCC V28); Gastro-esophageal reflux disease without esophagitis; Anemia, unspecified 05/22/2025 Lab Requisition [facility] Lab [address] [place] [phone] Harris Gross MD Essential (primary) hypertension; Anemia, unspecified 05/21/2025 Lab Requisition [facility] Lab [address] [place] [phone] Harris Gross MD Essential (primary) hypertension; Chronic [...] K/mcL LAB HEMETOLOGY METHOD 06/16/2025 10:06 AM [facility] LAB RBC 2.80(L) 3.80 - 4.80 M/mcL LAB HEMETOLOGY METHOD 06/16/2025 10:06 AM [facility] LAB Hemoglobin 8.3(L) 11.5 - 16.0 g/dL LAB HEMETOLOGY METHOD 06/16/2025 10:06 AM [facility] LAB Hematocrit 27.0(L) 35.0 - 47.0 % LAB HEMETOLOGY METHOD 06/16/2025 10:06 AM [facility] LAB MCV 95.7 79.0 - 98.0 FL LAB HEMETOLOGY METHOD 06/16/2025 10:06 AM EDT [facility] LAB MCH 29.4 27.0 - 32.0 pcg LAB HEMETOLOGY METHOD 06/16/2025 10:06 AM EDT [facility] LAB MCHC 30.7(L) 32.0 - 37.0 g/dL LAB HEMETOLOGY METHOD 06/16/2025 10:06 AM EDT [facility] LAB RDW 17.9(H) 11.0 - 15.0 % LAB HEMETOLOGY METHOD 06/16/2025 10:06 AM T [facility] LAB Platelets 119(L) 130 - 400 K/mcL LAB HEMETOLOGY METHOD 06/16/2025 10:06 AM T [facility] LAB MPV 12.1(H) 7.0 - 11.0 FL LAB HEMETOLOGY METHOD 06/16/2025 10:06 AM EDT [facility] LAB NRBC 0.0 <1.0 % LAB HEMETOLOGY METHOD 06/16/2025 10:06 AM [facility] LAB NRBC Absolute 0.00 <0.10 K/mcL LAB HEMETOLOGY METHOD 06/16/2025 10:06 AM [facility] LAB Blood Venous blood specimen / Unknown Venipuncture / Unknown 06/16/2025 5:01 AM EDT 06/16/2025 9:03 AM EDT us Harris Gross MD LAB BLOOD ORDERABLES Final Resul t [facility] LAB [address] [place] [address], * (ABNORMAL) Basic metabolic panel (06/16/2025 5:01 AM EDT) Only the most recent of6 resultswithin the time period is included. [facility] Sodium 138 133 - 145 mmol/L LAB CHEMISTRY METHOD 06/16/2025 10:31 AM [facility] LAB Potassium 4.3 3.5 - 5.5 mmol/L LAB CHEMISTRY METHOD 06/16/2025 10:31 AM [facility] LAB Chloride 104 96 - 110 mmol/L LAB CHEMISTRY METHOD 06/16/2025 10:31 AM [facility] LAB CO2 28 21 - 32 mmol/L LAB CHEMISTRY METHOD 06/16/2025 10:31 AM [facility] LAB Anion Gap 6 3 - 11 LAB CHEMISTRY METHOD 06/16/2025 10:31 AM [facility] LAB Glucose 77 70 - 100 mg/dL LAB CHEMISTRY METHOD 06/16/2025 10:31 AM [facility] LAB BUN 27(H) 5 - 25 mg/dL LAB CHEMISTRY METHOD 06/16/2025 10:31 AM [facility] LAB Creatinine 0.89 0.50 - 1.10 mg/dL LAB CHEMISTRY METHOD 06/16/2025 10:31 AM [facility] LAB eGFR 64 >=60 mL/min/1. 73m2 LAB CHEMISTRY METHOD 06/16/2025 10:31 AM [facility] LAB Comment:Calculation based on the Chronic Kidney Disease Epidemiology Collaboration (CKD-EPI) equation refit without adjustment for race. BUN/Creatinine Ratio 30.3 LAB CHEMISTRY METHOD 06/16/2025 10:31 AM [facility] LAB Calcium 9.3 8.5 - 10.5 mg/dL LAB CHEMISTRY METHOD 06/16/2025 10:31 AM [facility] LAB Blood Venous blood specimen / Unknown Venipuncture / Unknown 06/16/2025 5:01 AM EDT 06/16/2025 9:03 AM EDT us Harris Gross MD LAB BLOOD ORDERABLES Final Resul t [facility] LAB [address] [place] [address], [place] [phone] * Urinalysis with reflex microscopic (05/29/2025 8:00 AM EDT) Specific [place] Urine 1.016 1.003 - 1.030 LAB URINALYSIS - AUTOMATED METHOD 05/30/2025 8:36 AM [facility] LAB pH, Urine 5.5 5.0 - 8.0 pH LAB URINALYSIS - AUTOMATED METHOD 05/30/2025 8:36 AM [facility] LAB Leukocytes, Urine Negative Negative LAB URINALYSIS - AUTOMATED METHOD 05/30/2025 8:36 AM [facility] LAB Nitrite, Urine Negative Negative LAB URINALYSIS - AUTOMATED METHOD 05/30/2025 8:36 AM [facility] LAB Protein, Urine Negative <=Trace mg/dL LAB URINALYSIS - AUTOMATED METHOD 05/30/2025 8:36 AM [facility] LAB Glucose, Urine Negative Negative mg/dL LAB URINALYSIS - AUTOMATED METHOD 05/30/2025 8:36 AM [facility] Ketones, Urine Negative Negative mg/dL LAB URINALYSIS - AUTOMATED METHOD 05/30/2025 8:36 AM [facility] LAB Urobilinogen, Urine 0.2 0.2 - 1.0 mg/dL LAB URINALYSIS - AUTOMATED METHOD 05/30/2025 8:36 AM [facility] LAB Bilirubin, Urine Negative Negative LAB URINALYSIS - AUTOMATED METHOD 05/30/2025 8:36 AM [facility] Blood, Urine Negative Negative LAB URINALYSIS - AUTOMATED METHOD 05/30/2025 8:36 AM [facility] LAB Urine Urine specimen obtained by clean catch procedure / Unknown Non-blood Collection / Unknown 05/29/2025 8:00 AM EDT 05/30/2025 8:05 AM EDT us Harris Gross MD LAB URINE ORDERABLES Final Resul t Performing Organization Address City/[facility]/ZIP Co de Phone Number [facility] LAB [address] [place] [address], [place] [phone] * (ABNORMAL) Culture urine (05/29/2025 8:00 AM [...] ORDER ROEL Final Result Performing Organization Address [facility] Co de Phone Number [facility] [address] [place] [address], [place] [phone] * Iron and TIBC (05/26/2025 4:52 AM [...] AM EDT 05/26/2025 10:18 AM EDT us aHrris Gross MD LAB BLOOD ORDERABLES Final Resul t Performing Organization Address City/[facility]/ZIP Co de Phone Number [facility] [address] [place] [address], [place] [phone] * Ferritin (05/26/2025 4:52 AM EDT) [facility] Ferritin 23 8 - 252 ng/mL LAB CHEMISTRY METHOD 05/26/2025 12:57 PM EDT [facility] Blood Venous blood specimen / Unknown Venipuncture / Unknown 05/26/2025 4:52 AM EDT 05/26/2025 10:18 AM EDT us Harris Gross MD LAB BLOOD ORDERABLES Final Resul t Performing Organization Address City/[facility]/ZIP Co de Phone Number [facility] [address] [place] [address], [place] [phone] * (ABNORMAL) Comprehensive metabolic panel (05/21/2025 4:56 AM EDT) [facility] Sodium 138 133 - 145 mmol/L LAB CHEMISTRY METHOD 05/21/2025 11:07 AM EDT [facility] Potassium 4.2 3.5 - 5.5 mmol/L LAB CHEMISTRY METHOD 05/21/2025 11:07 AM EDT [facility] Chloride 104 96 - 110 mmol/L LAB CHEMISTRY METHOD 05/21/2025 11:07 AM EDT [facility] CO2 29 21 - 32 mmol/L LAB CHEMISTRY METHOD 05/21/2025 11:07 AM EDT [facility] Anion Gap 5 3 - 11 LAB CHEMISTRY METHOD 05/21/2025 11:07 AM EDT [facility] Glucose 74 [...] 11:07 AM [facility] Alkaline Phosphatase 86 42 - 121 unit/L LAB CHEMISTRY METHOD 05/21/2025 11:07 AM [facility] Total Protein 6.1 6.0 - 8.0 g/dL LAB CHEMISTRY METHOD 05/21/2025 11:07 AM [facility] LAB Albumin 3.4 3.2 - 5.0 g/dL LAB CHEMISTRY METHOD 05/21/2025 11:07 AM [facility] Total Bilirubin 0.2 0.0 - 1.4 mg/dL LAB CHEMISTRY METHOD 05/21/2025 11:07 AM [facility] Blood Venous blood specimen / Unknown Venipuncture / Unknown 05/21/2025 4:56 AM EDT 05/21/2025 10:01 AM EDT us Harris Gross MD LAB BLOOD ORDERABLES Final Resul t [facility] [address] [place] [address], [place] [phone] from Last 3 Months Insurance MEDICARE [facility] Advance Directives Documents on File Type Date Recorded Patient Network Systems Consultant Expl anation Health Care Decision (hx) 09/07/2023 HE ALTH CARE PROXY Health Care Decision (hx) 03/03/2023 HE ALTH CARE PROXY Care Teams Insurance Healthcare Representative Relationship Specialty Start Date End Date Harris Gross MD [address] [facility] [address] [place] [address] PCP - General Geriatric Medicine 02/13/25
--- OUTSIDE RECORDS SUMMARY | 2025-07-17 16:24 | XMS_ITS | Encounter Summary ---
Author Organization [facility] Address [address] [place] [address] Care Team Providers Care Advisor To Command In Combat Name Role Phone Harris Gross MD Primary Care Provider [phone] Encounter Details Date Type Department Care Team (Late st Contact Info) Description 06/13/2025 Lab Requisition [facility] Lab [address] [facility] [place] [address] Harris Gross MD [address] [place], [place] [id number] Essential (primary) hypertension; Chronic obstructive pulmonary disease, [...] mmol/L LAB CHEMISTRY METHOD 06/16/2025 10:31 AM [facility] LAB Potassium 4.3 3.5 - 5.5 mmol/L LAB CHEMISTRY METHOD 06/16/2025 10:31 AM [facility] LAB Chloride 104 96 - 110 mmol/L LAB CHEMISTRY METHOD 06/16/2025 10:31 AM [facility] LAB CO2 28 21 - 32 mmol/L LAB CHEMISTRY METHOD 06/16/2025 10:31 AM [facility] LAB Anion Gap 6 3 - 11 LAB CHEMISTRY METHOD 06/16/2025 10:31 AM [facility] LAB Glucose 77 70 - 100 mg/dL LAB CHEMISTRY METHOD 06/16/2025 10:31 AM [facility] LAB BUN 27(H) 5 - 25 mg/dL LAB CHEMISTRY METHOD 06/16/2025 10:31 AM [facility] LAB Creatinine 0.89 0.50 - 1.10 mg/dL LAB CHEMISTRY METHOD 06/16/2025 10:31 AM [facility] LAB eGFR 64 >=60 mL/min/1. 73m2 LAB CHEMISTRY METHOD 06/16/2025 10:31 AM [facility] LAB Comment:Calculation based on the Chronic Kidney Disease Epidemiology Collaboration (CKD-EPI) equation refit without adjustment for race. BUN/Creatinine Ratio 30.3 LAB CHEMISTRY METHOD 06/16/2025 10:31 AM [facility] LAB Calcium 9.3 8.5 - 10.5 mg/dL LAB CHEMISTRY METHOD 06/16/2025 10:31 AM [facility] LAB Blood Venous blood specimen / Unknown Venipuncture / Unknown 06/16/2025 5:01 AM EDT 06/16/2025 9:03 AM EDT Harris Gross MD LAB BLOOD ORDERABLES Final Resul t [facility] LAB [address] [place] [address], * (ABNORMAL) Complete blood count (06/16/2025 5:01 AM EDT) WBC 3.2(L) 4.8 - 10.8 K/mcL LAB HEMETOLOGY METHOD 06/16/2025 10:06 AM EDT [facility] LAB RBC 2.80(L) 3.80 - 4.80 M/mcL LAB HEMETOLOGY METHOD 06/16/2025 10:06 AM EDT [facility] LAB Hemoglobin 8.3(L) 11.5 - 16.0 g/dL LAB HEMETOLOGY METHOD 06/16/2025 10:06 AM [facility] LAB Hematocrit 27.0(L) 35.0 - 47.0 % LAB HEMETOLOGY METHOD 06/16/2025 10:06 AM EDT [facility] LAB MCV 95.7 79.0 - 98.0 FL LAB HEMETOLOGY METHOD 06/16/2025 10:06 AM EDT [facility] LAB MCH 29.4 27.0 - 32.0 pcg LAB HEMETOLOGY METHOD 06/16/2025 10:06 AM [facility] LAB MCHC 30.7(L) 32.0 - 37.0 g/dL LAB HEMETOLOGY METHOD 06/16/2025 10:06 AM EDT [facility] LAB RDW 17.9(H) 11.0 - 15.0 % LAB HEMETOLOGY METHOD 06/16/2025 10:06 AM EDT [facility] LAB Platelets 119(L) 130 - 400 K/mcL LAB HEMETOLOGY METHOD 06/16/2025 10:06 AM [facility] LAB MPV 12.1(H) 7.0 - 11.0 FL LAB HEMETOLOGY METHOD 06/16/2025 10:06 AM EDT [facility] LAB NRBC 0.0 <1.0 % LAB HEMETOLOGY METHOD 06/16/2025 10:06 AM EDT [facility] LAB NRBC Absolute 0.00 <0.10 K/mcL LAB HEMETOLOGY METHOD 06/16/2025 10:06 AM EDT [facility] LAB Blood Venous blood specimen / Unknown Venipuncture / Unknown 06/16/2025 5:01 AM EDT 06/16/2025 9:03 AM EDT us Harris Gross MD LAB BLOOD ORDERABLES Final Resul t [facility] LAB [address] [place] [address], documented in this encounter Visit Diagnoses Diagnosis Essential (primary) hypertension Unspecified essential hypertension Chronic obstructive pulmonary disease, unspecified (CMS/HCC V24, CMS/HCC V28) documented in this encounter Care Teams Advisor To Command In Combat Relationship Specialty Start Date End Date Harris Gross MD [address] [place] [address] [address] [place] [address] PCP - General Geriatric Medicine 02/13/25 documented as of this encounter
--- OUTSIDE RECORDS SUMMARY | 2025-07-17 16:24 | XMS_ITS | Clinical Summary ---
Author Organization [facility] Address [address] [place] [phone] Phone Care Team Providers Care Care Partner Name Role Phone Nick Gomez Primary Care [...] patient's age to complete this topic IPV VACCINES Aged Out No longer eligi ble based on patient's age to complete this topic MENINGOCOCCAL VACCINES (ACWY) Aged Out No longer eligible based on patient's age to complete this topic MENINGOCOCCAL VACCINES (B) Aged Out N o longer eligible based on patient's age to complete this topic Medical Devices Not on file Insurance MEDICARE PART A & B [facility] MEDICARE SUPPLEMENT MEDICARE PART A & B [employer] MEDICARE SUPPLEMENT MEDICARE PART A & B [employer] [place] [address] MEDICARE PART A & B [facility] MEDICARE SUPPLEMENT MED[facility]ARE PART A & B [facility] MEDICARE SUPPLEMENT MEDICARE PART A & B Member Subscriber Plan / Payer (Ef fective 2005-) Name:Bella Henley Member ID:[id number] Relation to Subscriber:Self Name:Bella Henley Subscriber ID:[id number] Payer ID:[id number] Group ID:Not on file Type:Medicare Address: [employer] [address] [place] [id number] [facility] MEDICARE SUPPLEMENT MEDICARE PART A & B Member Subscriber Plan / Payer (Ef fective 2005-Present) Name:Bella Henley Member ID:[id number] Relation to Subscriber:Self Name:Bella Henley Subscriber ID:[id number] Payer ID:[id number] Group ID:Not on file Type:Medicare Address: [address] [place] [phone] [place] [address] MEDICARE SUPPLEMENT MEDICARE PART A & B MEDICARE SUPPLEMENT MEDICARE PART A & B [facility] MEDICARE SUPPLEMENT Care Teams Care Partner Relationship Specialty Start Date End Date Nick Gomez PA [address] [place] [id number] PCP - General Physician [employer] 05/14/23 Additional Source Comments The information contained in this document represents components of the legal health record. It is not the complete legal health record.[facility]
--- OUTSIDE RECORDS SUMMARY | 2025-07-17 16:24 | XMS_ITS | Data Portability ---
Author Organization [facility], Telehealth Patient Home Address [address] [place] [phone] Assessment No assessment recorded. Plan of Treatment Reminders Order Date Submit Date Provider Last Modified By Organization Details Last Modified Time Details Appointments None recorded. Lab BMP, blood [address] Internal Medicine, [address] [place] [address], [place], [address], 9 07:42:19 lipid panel, blood [address] Internal Medicine, [address] [place] [address], [place], [address], 9 07:42:20 Referral None recorded. Procedures None recorded. Surgeries None recorded. Imaging None recorded. Medication Orders Cipro 500 mg tablet 2018 019 [facility] [place] [id number], [address] [place], [place], [id number], 9 11:53:38 Zithromax Z-Rajesh 250 mg tablet 2018 019 [id number], [address] [place], [place], [id number], 9 11:53:23 metoprolol succinate ER 25 mg tablet,exte nded release 24 hr 2018 019 [facility], [address] [place], [place], [id number], 9 11:15:40 Patient Targets Encounter Date Encounter Id Patient Goals Patient Target Last Modified By Organization Details Last Modified Time 09/26/2018 [id number] Call therapist to schedule counseling mindyerlinda Not available 09/26/2018 11:54:07 Patient Instructions Encounter Date Encounter Id Patient Instructions Last Modified By Organization Details Last Modified Time 09/21/2018 [id number] Relaxation, reconsider escitalopram- will review at f/u next week to avoid dual med starting together marilynn Not available 09/21/2018 15:27:44 09/26/2018 [id number] pulse oximetry* marilynn Not available 09/26/2018 11:54:08 10/08/2018 [id number] Acute Sinusitis: Care Instructions marilynn Not available 10/08/2018 11:28:17 pulse oximetry* marilynn Not available 10/08/2018 11:28:17 12/04/2018 [id number] pulse oximetry* marilynn Not available 12/04/2018 12:22:51 Reason for Referral None Reported. Results Created Date Observation Date Name Description Value Unit Range Abnormal Flag Note LastModifiedBy Organization Detail LastModifiedTime 09/26/1909/26/2018 pulse oxime try* Result 96 Not Available [facility] Internal Medicine [address] [place] [address], [address], 09/26/2018 11:15:30 10/08/19 19 10/08/2018 pulse oxime try* Result 97 Not Available [facility] Medicine [address] [place] [address], [phone], 10/08/2018 11:18:00 12/05/19 19 12/04/2018 pulse oxime try* Result 97 Not Available [facility] Medicine [address] [place] [address], [phone], 12/04/2018 11:55:20 Result Notes None recorded. Problems Name Problem SNOMED Code Status Onset Date Resolution Date Notes Provider Name and Address Organization Details Recorded Time Diverticul itis 098059107 Active 2017 Taina Hanson [facility] 8 16:58:14 Chronic obstructiv e pulmonary disease 48776451 Active 2017 Tainaronnell Hanson [facility] 8 16:58:22 Aortic valve stenosis 43433210 Active 2017 Tainaronnell Hanson [facility] 8 16:58:36 Anxiety 62429245 Active 2017 Tainaronnell Hanson [facility] 8 16:58:45 Cystocele 132923425 Active 2017 Tainaronnell Hanson [facility] 8 16:58:58 Abdominal aortic aneurysm 835711050 Active 2017 Samina Lama NP, [address] [place], [address], [facility] 8 13:58:39 Problem Notes None recorded. Medical Equipment None Reported. Allergies Allergen ID Allergen Name Allergen Category Reaction Reaction Severity Criticality Documentation Date Start Date Code Code System Note Provider Name and Address Organization Details Recorded Time 1547 Substance with sulfonami de structure and antibacte rial mechanism of action (substanc e) medicatio n Not available Not available Not available 02/06/2018 35394 8003 SNOMED Tainaronnell Hanson [facility] 8 16:57:43 1548 Keflex medicatio n Not available Not available Not available 02/06/2018 7 RxNorm Taina Tarangoicki [facility] 8 16:57:55 2328 Flagyl medicatio n other moderate Not available 05/29/2018 6 RxNorm [facility]nell [facility] 8 11:44:55 2717 metoprolo l Not available chest pain Not available Not available 09/21/2018 6918 RxNorm Tainaronnell Tarangoickdonaldo [facility] 9 16:31:23 Medications Name Sig [...] % 97 % 128/84 mm[Hg] Taina Sukhdeepmary [facility] 9 14:32:26 Date Recorded Body height Heart rate Oxygen saturation Oxygen saturation in Arterial blood by Pulse oximetry Systolic And Diastolic Provider Name and Address Organization Details Last Updated DateTime 9 168.91 cm 90 /min 96 % 96 % 124/80 mm[Hg] Eunice Molina [facility] 9 11:17:24 Date Recorded Heart rate Provider Name an d Address Organization Details Last Updated DateTime 10/08/2018 84 /min Samina Lmaa NP, [address] [place], [address], [facility] 10/08/2018 11:28:37 Date Recorded Body height Oxygen saturation Oxygen saturation in Arterial blood by Pulse oximetry Heart rate Body temperature Systolic And Diastolic Provider Name and Address Organization Details Last Updated DateTime 9 168.91 cm 97 % 97 % 112 /min 98.2 [degF] 142/86 mm[Hg] [facility] 9 11:17:37 Date Recorded Heart rate Provider Name an d Address Organization Details Last Updated DateTime 10/19/2018 80 /min Samina Lama NP, [address] [place], [address], [facility] 10/19/2018 12:04:58 Date Recorded Body height Heart rate Oxygen saturation Oxygen saturation in Arterial blood by Pulse oximetry Systolic And Diastolic Provider Name and Address Organization Details Last Updated DateTime 9 168.91 cm 105 /min 98 % 98 % 140/80 mm[Hg] Taina Hanson [facility] 9 11:45:01 Date Recorded Body height Body mass index (BMI) Body weight Oxygen saturation Oxygen saturation in Arterial blood by Pulse oximetry Heart rate Systolic And Diastolic Provider Name and Address Organization Details Last Updated DateTime 9 168.91 cm 31.1 kg/m2 80706.6 7 g 97 % 97 % 97 /min 120/90 mm[Hg] Dahiana Ha [facility] Internal [facility] 9 11:56:24 Social History Question Answer Notes LastModified by Organizat ion Details LastModified Time Tobacco Smoking Status Former Smoker Not Available [employer] 07/07/2020 03:36:24 What Was The Date Of Your Most Recent Tobacco Screening? 12/04/2018 [id number] Information not available 07/07/2020 Sex: Unknown Functional [...] virus, quadrivalent, preservative 8 completed Eunice Molina [facility] 09/26/2018 11:16:26 Past Encounters Encounter ID Performer Location Encounter Start Date Encounter Closed Date Diagnosis/Indication Diagnosis SNOMED-CT Code Diagnosis ICD10 Code Diagnosis IMO Codes Diagnosis Note [id number] Deny Saleh DO [facility] Medicine [address] [facility] [address] 02/07/2018 11:02:27 02/07/2018 16:46:02 Anxiety 41903950 F41.9 Nail changes 209799813 L 60.9 Abdominal aortic aneurysm 976434469 I71.4 CT 11/2017, no changes 2016, 2.85 cm Aortic david nosis, non-rheumatic 330381697 I35.0 stable Gastroesop hageal reflux disease 680937401 K21.9 d/c bradley mints, call if persists Insomnia 064062303 G47.0 0 review proper sleep hygiene be more active during day avoid naps [id number] Deny Saleh [facility] Internal Medicine [address] [facility],[place] [address] 03/16/2018 11:29:23 03/20/2018 08:12:01 Dehydration 50449437 E86.0 Gastroenteritis 14985634 K52.9 Aortic valve stenosis 60 890556 I35.0 stable, follow [id number] Deny Saleh [facility] [address] [facility],[place] [address] 05/16/2018 13:23:14 05/16/2018 14:06:44 Anxiety 93753023 F41.9 BID lorazepam helps Aortic valve stenosis 60 482381 I35.0 stable, echo 05/31/2017 Active or passive immunization 984524195 Z23 Abdominal aortic aneurysm 391341098 I71.4 CT 11/2017, no changes 2016, 2.85 cm Chronic ob structive pulmonary disease 90223362 J44.9 Non smoker X years, asymptomat ic Diverticular disease 397 043863 K57.90 no recent flare [id number] Deny Saleh [facility] Internal [facility] [address] [facility],[place] [address] 05/29/2018 11:40:58 05/29/2018 16:52:51 Aortic valve stenosis 80427904 I35.0 stable, echo 05/31/2017 Anxiety 29539143 F41.9 BID lorazepam helps, discussed current fears re: Constipation 84505376 K5 9.00 [id number] Deny Saleh [facility] [address] [facility],[place] [address] 08/14/2018 11:20:27 08/14/2018 17:00:16 Anxiety 37229651 F41.9 BID lorazepam helps, discussed current fears Aortic valve stenosis 60 192512 I35.0 stable, echo 05/31/2017 Diverticulitis 094739240 K57.92 Increased frequency of urination 222211095 R35.0 [id number] Deny Saleh DO [facility] [address] [facility] [address],[place] [address] 08/20/2018 11:12:33 08/20/2018 12:20:46 Anxiety 53768687 F41.9 BID alprazolam helps, discussed current fears Diverticulitis 742503738 K57.92 Aortic valve stenosis 60 150480 I35.0 stable, echo 05/31/2017 Family problems 78441561 4 Z63.79 Suggest therapy, names provided. Pt agrees [id number] Deny Saleh [facility] Medicine [address] [facility],[place] [address] 09/12/2018 10:19:31 09/12/2018 20:18:16 Abdominal aortic aneurysm 153109158 I71.4 CT 11/2017, no changes 2016, 2.85 cm Chronic ob structive pulmonary disease 58063381 J44.9 Non smoker X years, asymptomat ic Anxiety 19139224 F41.9 BID alprazolam helps, discussed current fears Aortic valve stenosis 60 774251 I35.0 stable, echo 05/31/2017 [id number] Deny Saleh [facility] Medicine [address] [facility] [address] [address] 09/21/2018 14:26:58 09/25/2018 11:17:00 Anxiety 96961260 F41.9 discussed current fears again, see below Aortic valve stenosis 60 449294 I35.0 [id number] Deny Saleh [facility] [address] [facility] [address] [address] 09/26/2018 11:12:05 09/26/2018 13:02:53 Hypertensive disorder 27581889 I10 Chronic ob structive pulmonary disease 66767023 J44.9 Non smoker X years, asymptomat ic Anxiety 45286317 F41.9 discussed current fears again, see below Aortic valve stenosis 60 579471 I35[place]0 [place] [id number] Deny Saleh [facility] Medicine [address] [facility] [address] [address] 10/08/2018 11:12:38 10/08/2018 14:35:10 Cough 98229335 R05 Acute sinusitis 72001931 J01.90 Anxiety 51360358 F41.9 revisited [id number] Deny Saleh [facility] [address] [facility],[place] [address] 10/19/2018 11:41:00 10/19/2018 12:37:34 Diverticulitis 121954221 K57.92 Intolerant Flagyl Anxiety 48307573 F41.9 revisited Aortic valve stenosis 60 777663 I35.0 asymptomat ic Abdominal aortic aneurysm 894391298 I71.4 CT 11/2017, no changes 2016, 2.85 cm Chronic ob structive pulmonary disease 65311217 J44.9 Non smoker [place], [place] [id number] Deny Saleh [facility] Internal Medicine [address] [facility], [place] [address] 12/04/2018 11:49:58 12/04/2018 16:03:42 Chronic obstructive pulmonary disease 04817680 J44.9 Non smoker X years, asymptomat ic Anxiety 06490397 F41.9 revisited Aortic valve stenosis 60 516800 I35.0 asymptomat ic Health Concerns Section Related Observation LastModified by Organization Detai ls LastModified Time None Recorded Concern Status LastModified by Organization Details LastModified Time None Recorded Advance Directives Directive None Recorded Payers Insurance Date Sequence Insurance Name Policy Number Policy Berry Covered Member ID Berry Member ID Guarantor Name 12/03/2018 2 [facility] INDEMNITY PLAN (INDEMNITY) [id number] Bella Henley [id number] Bella Henley 12/03/2018 1 MEDICARE B-[place]: [employer] Bella Henley [id number] Bella Henley Notes Date Note Type Note Provider Name a nd Address Organization Details Recorded Time 09/21/2018 text/html ROS as noted in the HPI Here with concerns BP had panic attack this am, ambulance was called Checked BP after pts episode was 158/101 Did not start escitalopram prescribed last week , under a great deal of stress Samina Lama NP, [address] [place], [address], [facility] 09/21/2018 15:27:56 09/26/2018 [...] to complete ADL's Samina Lama NP, S [address] [place] [address], [address], [facility] 09/26/2018 11:54:50 10/08/2018 [...] family situation Samina Lama NP, [address] [place], [address], [facility] 10/08/2018 11:49:45 10/19/2018 text/html Yesterday felt ok last night 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 this a.m. also increased voiding w/no dysuria no N/V/D/C, no BRBPR or hematuria Samina Lama NP, [address] [place], [address], [facility] 10/19/2018 12:09:27 12/04/2018 text/html ROS as noted in the HPI Very anxious re: husbands cognitive decline/getting worn out In therapy w/Peter Dopp Son also recent renal cancer, surgery went well.-but pt. gets worked up over everything pt recently started back on allergy shots some heartburn and post nasal drip Samina Lama, [employer], [address] [facility], [place], [address], [facility] 12/04/2018 12:23:16 OBGyn Episode No OBEpisode recorded.
--- OUTSIDE RECORDS SUMMARY | 2025-07-17 16:24 | XMS_ITS | Encounter Summary ---
Author Organization [facility] Address [address] [place] [address] Care Team Providers Care Mold Filler Name Role Phone Harris Gross MD Primary Care Provider [phone] Encounter Details Date Type Department Care Team (Late st Contact Info) Description 03/06/2025 Lab Requisition [facility] - Main Lab [address] [facility] [place] [address] Harris Gross MD [address] [place], [place] [id number] Altered mental status, unspecified; Dysuria Social History [...] reflex microscopic (03/06/2025 12:00 AM EDT) Specific [place] Urine 1.008 1.003 - 1.030 LAB URINALYSIS - AUTOMATED METHOD 03/06/2025 10:34 AM [facility] pH, Urine 7.5 5.0 - 8.0 pH LAB URINALYSIS - AUTOMATED METHOD 03/06/2025 10:34 AM [facility] Leukocytes, Urine Negative Negative LAB URINALYSIS - AUTOMATED METHOD 03/06/2025 10:34 AM [facility] Nitrite, Urine Negative Negative LAB URINALYSIS - AUTOMATED METHOD 03/06/2025 10:34 AM [facility] Protein, Urine Negative <=Trace mg/dL LAB URINALYSIS - AUTOMATED METHOD 03/06/2025 10:34 AM [facility] Glucose, Urine Negative Negative mg/dL LAB URINALYSIS - AUTOMATED METHOD 03/06/2025 10:34 AM [facility] Ketones, Urine Negative Negative mg/dL LAB URINALYSIS - AUTOMATED METHOD 03/06/2025 10:34 AM [facility] Urobilinogen, Urine 0.2 0.2 - 1.0 mg/dL LAB URINALYSIS - AUTOMATED METHOD 03/06/2025 10:34 AM [facility] Bilirubin, Urine Negative Negative LAB URINALYSIS - AUTOMATED METHOD 03/06/2025 10:34 AM [facility] Blood, Urine Negative Negative LAB URINALYSIS - AUTOMATED METHOD 03/06/2025 10:34 AM [facility] Urine Urine specimen obtained by clean catch procedure / Unknown 03/06/2025 03/06/2025 8:51 AM EDT us Harris Gross MD LAB URINE ORDERABLES Final Resul t [facility] [address] [place] [address], * Culture urine (03/06/2025 12:00 AM EDT) Culture, Urine <10,000 CFU/mL gram positive cocci, insignificant count, no further workup 03/07/2025 1:00 PM EDT [facility] Urine Urine specimen obtained by clean catch procedure / Unknown 03/06/2025 03/06/2025 8:51 AM EDT Harris Gross MD LAB MICROBIOLOGY - GENERAL ORDER ROEL Final Result [facility] [address] [place] [address], documented in this encounter Visit Diagnoses Diagnosis Altered mental status, unspecified Dysuria documented in this encounter Care Teams Mold Filler Relationship Specialty Start Date End Date Harris Gross MD [address] [place] [address] [address] [place] [address] PCP - General Geriatric Medicine 02/13/25 documented as of this encounter
--- OUTSIDE RECORDS SUMMARY | 2025-07-17 16:24 | XMS_ITS | Encounter Summary ---
Author Organization [facility] Address [address] [place] [address] Care Team Providers Care Steam Hammer Operator Name Role Phone Harris Gross MD Primary Care Provider [phone] Encounter Details Date Type Department Care Team (Late st Contact Info) Description 05/30/2025 Lab Requisition [facility] - Main Lab [address] [facility] [place] [place] [address] Harris Gross MD [address] [place], [place] [id number] Essential (primary) hypertension; Chronic obstructive pulmonary disease, [...] mmol/L LAB CHEMISTRY METHOD 06/02/2025 12:46 PM [facility] Potassium 4.0 3.5 - 5.5 mmol/L LAB CHEMISTRY METHOD 06/02/2025 12:46 PM [facility] Chloride 106 96 - 110 mmol/L LAB CHEMISTRY METHOD 06/02/2025 12:46 PM [facility] CO2 27 21 - 32 mmol/L LAB CHEMISTRY METHOD 06/02/2025 12:46 PM [facility] Anion Gap 7 3 - 11 LAB CHEMISTRY METHOD 06/02/2025 12:46 PM [facility] Glucose 69(L) 70 - 100 mg/dL LAB CHEMISTRY METHOD 06/02/2025 12:46 PM [facility] BUN 21 5 - 25 mg/dL LAB CHEMISTRY METHOD 06/02/2025 12:46 PM [facility] Creatinine 0.86 0.50 - 1.10 mg/dL LAB CHEMISTRY METHOD 06/02/2025 12:46 PM [facility] eGFR 67 >=60 mL/min/1. 73m2 LAB CHEMISTRY METHOD 06/02/2025 12:46 PM [facility] Comment:Calculation based on the Chronic Kidney Disease Epidemiology Collaboration (CKD-EPI) equation refit without adjustment for race. BUN/Creatinine Ratio 24.4 LAB CHEMISTRY METHOD 06/02/2025 12:46 PM [facility] Calcium 9.0 8.5 - 10.5 mg/dL LAB CHEMISTRY METHOD 06/02/2025 12:46 PM [facility] Blood Venous blood specimen / Unknown Venipuncture / Unknown 06/02/2025 4:54 AM EDT 06/02/2025 10:56 AM EDT Harris Gross MD LAB BLOOD ORDERABLES Final Resul t [facility] [address] [place] [address], * (ABNORMAL) Complete blood count (06/02/2025 4:54 AM EDT) WBC 3.1(L) 4.8 - 10.8 K/mcL LAB HEMETOLOGY METHOD 06/02/2025 1:02 PM EDT [facility] RBC 2.70(L) 3.80 - 4.80 M/mcL LAB HEMETOLOGY METHOD 06/02/2025 1:02 PM EDT [facility] Hemoglobin 7.8(L) 11.5 - 16.0 g/dL LAB HEMETOLOGY METHOD [facility] Hematocrit 25.7(L) 35.0 - 47.0 % LAB HEMETOLOGY METHOD 06/02[facility]2025 [facility] MCV 95.9 79.0 - 98.0 FL LAB HEMETOLOGY METHOD 06/02/2025 1:02 PM EDT [facility] MCH 29.1 27.0 - 32.0 pcg LAB HEMETOLOGY METHOD 06/02/2025 1:02 PM [facility] MCHC 30.4(L) 32.0 - 37.0 g/dL LAB HEMETOLOGY METHOD 06/02/2025 1:02 PM EDT [facility] RDW 17.8(H) 11.0 - 15.0 % LAB HEMETOLOGY METHOD 06/02/2025 1:02 PM EDT [facility] Platelets 109(L) 130 - 400 K/mcL LAB HEMETOLOGY METHOD [facility]/02[facility]25 [facility] MPV 12.3(H) 7.0 - 11.0 FL LAB HEMETOLOGY METHOD 06/02/2025 1:02 PM EDT [facility] NRBC 0.0 <1.0 % LAB HEMETOLOGY METHOD 06/02/2025 1:02 PM EDT [facility] NRBC Absolute 0.00 <0.10 K/mcL LAB HEMETOLOGY METHOD 06/02/2025 1:02 PM EDT [facility] Blood Venous blood specimen / Unknown Venipuncture / Unknown 06/02/2025 4:54 AM EDT 06/02/2025 10:56 AM EDT us Harris Gross MD LAB BLOOD ORDERABLES Final Resul t [facility] [address] [place] [address], documented in this encounter Visit Diagnoses Diagnosis Essential (primary) hypertension Unspecified essential hypertension Chronic obstructive pulmonary disease, unspecified (CMS/HCC V24, CMS/HCC V28) documented in this encounter Care Teams Steam Hammer Operator Relationship Specialty Start Date End Date Harris Gross MD [address] [place] [address] [address] [place] [address] PCP - General Geriatric Medicine 02/13/25 documented as of this encounter
--- OUTSIDE RECORDS SUMMARY | 2025-07-17 16:24 | XMS_ITS | Encounter Summary ---
Author Organization [facility] Address [address] [place] [address] Care Team Providers Care Trash Collector Supervisor Name Role Phone Harris Gross MD Primary Care Provider Encounter Details Date Type Department Care Team (Late st Contact Info) Description 02/19/2025 Lab Requisition [facility] - Main Lab [address] [facility] [place] [address] Harris Gross MD [address] [place], [place] [id number] Other chcf (current) drug therapy Social History Tobacco Use [...] FOLATE Routine 02/19/2025 5:09 AM EDT Other chcf (current) drug therapy documented in this encounter Results * (ABNORMAL) Folate (02/19/2025 5:09 AM EDT) Folate >20.0(H) 2.8 - 17.0 ng/ml LAB CHEMISTRY METHOD 02/19/2025 8:26 AM EDT [facility] Blood Venous blood specimen / Unknown Venipuncture / Unknown 02/19/2025 5:09 AM EDT 02/19/2025 6:45 AM EDT Harris Gross MD LAB BLOOD ORDERABLES Final Resul t [facility] [address] [place] [address], documented in this encounter Visit Diagnoses Diagnosis Other chcf (current) drug therapy documented in this encounter Care Teams Trash Collector Supervisor Relationship Specialty Start Date End Date Harris Gross MD [address] [place] [address] [address] [place] [address] PCP - General Geriatric Medicine 02/13/25 documented as of this encounter
== END 2025-07-17 14:15 | disposition home or self-care (01) ==
LOC: HO.HUSH 13:05
PROVIDERS: PCP Internal Medicine; Visit Provider Nurse Practitioner Family
DX: Z13.9 Encounter for screening, unspecified (principal)

== ENCOUNTER → 2025-07-17 13:05 | Outpatient (BNVA) | payer MEDICARE, OTHER, SELFPAY | PROVIDERS: PCP Internal Medicine; Visit Provider Nurse Practitioner Family | DX: N39.44 Nocturnal enuresis (principal); Z13.9 Encounter for screening, unspecified | CPT/HCPCS: 51798; 81003; 99212 ==

== ENCOUNTER 2025-07-26 10:18 | Outpatient (REF) | payer MEDICARE, OTHER, SELFPAY ==
--- NOTE | ~2025-07-26 | XR_ITS ---
CLINICAL HISTORY: R10.9 - Unspecified abdominal pain 1 view abdomen Comparison: 04/30/2025 12:41 PM EDT: CR Findings: No pneumoperitoneum or pneumatosis. No abnormal calcifications. No acute fractures. There is a large stool burden suggesting constipation. IMPRESSION: There is a large stool burden suggesting constipation. This document has been electronically signed by: Samy Fry MD on 07/26/2025 11:44:57
--- OUTSIDE RECORDS SUMMARY | 2025-07-26 10:21 | XMS_ITS | Encounter Summary ---
Author Organization [facility] Address [address] [place] [address] Care Team Providers Care Cosmetology Teacher Name Role Phone Harris Gross MD Primary Care Provider [phone] Encounter Details Date Type Department Care Team (Late st Contact Info) Description 05/25/[address] [facility] - Main Lab 299 [facility] [place] [address] Harris Gross MD [address] [place], [place] [id number] Essential (primary) hypertension; Chronic obstructive pulmonary disease, [...] LAB CHEMISTRY METHOD 05/26/2025 12:57 PM EDT [facility] Blood Venous blood specimen / Unknown Venipuncture / Unknown 05/26/2025 4:52 AM EDT 05/26/2025 10:18 AM EDT us Harris Gross MD LAB BLOOD ORDERABLES Final Resul t [facility] [address] [place] [address], * Iron and TIBC (05/26/2025 4:52 AM EDT) Iron 88 40 - 150 mcg/dL LAB CHEMISTRY METHOD 05/26/2025 12:56 PM EDT [facility] TIBC 358 250 - 450 mcg/dL LAB CHEMISTRY METHOD 05/26/2025 12:56 PM EDT [facility] Iron Saturation 25 15 - 50 % LAB CHEMISTRY METHOD 05/26/2025 12:56 PM EDT [facility] Blood Venous blood specimen / Unknown Venipuncture / Unknown 05/26/2025 4:52 AM EDT 05/26/2025 10:18 AM EDT us Harris Gross MD LAB BLOOD ORDERABLES Final Resul t [facility] [address] [place] [address], * (ABNORMAL) Basic metabolic panel (05/26/2025 4:52 AM EDT) Sodium 141 133 - 145 mmol/L LAB CHEMISTRY METHOD 05/26/2025 12:56 PM EDT [facility] Potassium 4.8 3.5 - 5.5 mmol/L [...] LAB CHEMISTRY METHOD 05/26/2025 12:56 PM EDT [facility] Blood Venous blood specimen / Unknown Venipuncture / Unknown 05/26/2025 4:52 AM EDT 05/26/2025 10:18 AM EDT us Harris Gross MD LAB BLOOD ORDERABLES Final Resul t [facility] [address] [place] [address], * (ABNORMAL) Complete blood count (05/26/2025 4:52 AM EDT) WBC 3.5(L) 4.8 - 10.8 K/mcL LAB HEMETOLOGY METHOD 05/26/2025 12:53 PM EDT [facility] RBC 2.70(L) 3.80 - 4.80 M/mcL LAB HEMETOLOGY METHOD 05/26/2025 12:53 PM EDT [facility] Hemoglobin 7.5(L) 11.5 - 16.0 g/dL LAB HEMETOLOGY METHOD 05/26/2025 12:53 PM EDT [facility] Hematocrit 25.0(L) 35.0 - 47.0 % LAB HEMETOLOGY METHOD 05/26/2025 12:53 PM EDT [facility] MCV 92.3 79.0 - 98.0 FL LAB HEMETOLOGY METHOD 05/26/2025 12:53 PM EDT [facility] MCH 27.7 27.0 - 32.0 pcg LAB HEMETOLOGY METHOD 05/26/2025 12:53 PM EDT [facility] MCHC 30.0(L) 32.0 - 37.0 g/dL LAB HEMETOLOGY METHOD 05/26/2025 12:53 PM EDT [facility] RDW 15.2(H) 11.0 - 15.0 % LAB HEMETOLOGY METHOD 05/26/2025 12:53 PM EDT [facility] Platelets 156 130 - 400 K/mcL LAB HEMETOLOGY METHOD 05/26/2025 12:53 PM EDT [facility] MPV 12.4(H) 7.0 - 11.0 FL LAB HEMETOLOGY METHOD 05/26/2025 12:53 PM EDT [facility] NRBC 0.0 <1.0 % LAB HEMETOLOGY METHOD 05/26/2025 12:53 PM EDT [facility] NRBC Absolute 0.00 <0.10 K/mcL [facility] 05/26/2025 12:53 PM EDT [facility] Blood Venous blood specimen / Unknown Venipuncture / Unknown 05/26/2025 4:52 AM EDT 05/26/2025 10:18 AM EDT Harris Gross MD LAB BLOOD ORDERABLES Final Resul t [facility] [address] [place] [address], documented in this encounter Visit Diagnoses Diagnosis Essential (primary) hypertension Unspecified essential hypertension Chronic obstructive pulmonary disease, unspecified (CMS/HCC V24, CMS/HCC V28) Gastro-esophageal reflux disease without esophagitis Anemia, unspecified documented in this encounter Care Teams Cosmetology Teacher Relationship Specialty Start Date End Date Harris Gross MD [address] [place] [address] [address] [place] [address] PCP - General Geriatric Medicine 02/13/25 documented as of this encounter
--- OUTSIDE RECORDS SUMMARY | 2025-07-26 10:21 | XMS_ITS | Encounter Summary ---
Author Organization [facility] Address [address] [place] [address] Care Team Providers Care Fruit Worker Name Role Phone Harris Gross MD Primary Care Provider [phone] Encounter Details Date Type Department Care Team (Late st Contact Info) Description 05/28/2025 Lab Requisition [facility] - Main Lab [address] [place] [address] Harris Gross MD [address] [place], [place] [phone] Essential (primary) hypertension Social History Tobacco Use [...] LAB CHEMISTRY METHOD 05/29/2025 10:23 AM EDT [facility] Potassium 4.4 3.5 - 5.5 mmol/L LAB CHEMISTRY METHOD 05/29/2025 10:23 AM [facility] Chloride 104 96 - 110 mmol/L LAB CHEMISTRY METHOD 05/29/2025 10:23 AM [facility] CO2 31 21 - 32 mmol/L LAB CHEMISTRY METHOD 05/29/2025 10:23 AM [facility] Anion Gap 5 3 - 11 LAB CHEMISTRY METHOD 05/29/2025 10:23 AM [facility] Glucose 76 70 - 100 mg/dL LAB CHEMISTRY METHOD 05/29/2025 10:23 AM [facility] BUN 21 5 - 25 mg/dL LAB CHEMISTRY METHOD 05/29/2025 10:23 AM [facility] Creatinine 0.86 0.50 - 1.10 mg/dL LAB CHEMISTRY METHOD 05/29/2025 10:23 AM [facility] eGFR 67 >=60 mL/min/1. 73m2 LAB CHEMISTRY METHOD 05/29/2025 10:23 AM [facility] Comment:Calculation based on the Chronic Kidney Disease Epidemiology Collaboration (CKD-EPI) equation refit without adjustment for race. BUN/Creatinine Ratio 24.4 LAB CHEMISTRY METHOD 05/29/2025 10:23 AM [facility] Calcium 9.0 8.5 - 10.5 mg/dL LAB CHEMISTRY METHOD 05/29/2025 10:23 AM [facility] Blood Venous blood specimen / Unknown Venipuncture / Unknown 05/29/2025 6:50 AM EDT 05/29/2025 9:14 AM EDT us Harris Gross MD LAB BLOOD ORDERABLES Final Resul t [facility] [address] [place] [address], * (ABNORMAL) Complete blood count (05/29/2025 6:50 AM EDT) Pathologist [facility] WBC 3.4(L) 4.8 - 10.8 K/mcL LAB HEMETOLOGY METHOD 05/29/2025 10:07 AM [facility] RBC 2.70(L) 3.80 - 4.80 M/mcL LAB HEMETOLOGY METHOD 05/29/2025 10:07 AM [facility] Hemoglobin 7.6(L) 11.5 - 16.0 g/dL LAB HEMETOLOGY METHOD 05/29/2025 10:07 AM [facility] Hematocrit 25.2(L) 35.0 - 47.0 % LAB HEMETOLOGY METHOD 05/29/2025 10:07 AM [facility] MCV 93.0 79.0 - 98.0 FL LAB HEMETOLOGY METHOD 05/29/2025 10:07 AM [facility] MCH 28.0 27.0 - 32.0 pcg LAB HEMETOLOGY METHOD 05/29/2025 10:07 AM [facility] MCHC 30.2(L) 32.0 - 37.0 g/dL LAB HEMETOLOGY METHOD 05/29/2025 10:07 AM [facility] RDW 16.5(H) 11.0 - 15.0 % LAB HEMETOLOGY METHOD 05/29/2025 10:07 AM [facility] Platelets 135 130 - 400 K/[facility] LAB HEMETOLOGY METHOD 05/29/2025 10:07 AM [facility] MPV 12.0(H) 7.0 - 11.0 FL LAB HEMETOLOGY METHOD 05/29/2025 10:07 AM [facility] NRBC 0.0 <1.0 % LAB HEMETOLOGY METHOD 05/29/2025 10:07 AM [facility] NRBC Absolute 0.00 <0.10 K/[facility] LAB HEMETOLOGY METHOD 05/29/2025 10:[address] [facility] Blood Venous blood specimen / Unknown Venipuncture / Unknown 05/29/2025 6:50 AM EDT 05/29/2025 9:14 AM EDT Harris Gross MD LAB BLOOD ORDERABLES Final Resul t [facility] [address] [place] [address], documented in this encounter Visit Diagnoses Diagnosis Essential (primary) hypertension Unspecified essential hypertension documented in this encounter Care Teams Fruit Worker Relationship Specialty Start Date End Date Harris Gross MD [address] [place] [address] [address] [place] [address] PCP - General Geriatric Medicine 02/13/25 documented as of this encounter
--- OUTSIDE RECORDS SUMMARY | 2025-07-26 10:22 | XMS_ITS | Encounter Summary ---
Author Organization [facility] Address [address] [place] [address] Care Team Providers Care Price Accuracy Supervisor Name Role Phone Harris Gross MD Primary Care Provider [phone] Encounter Details Date Type Department Care Team (Late st Contact Info) Description 03/06/2025 Lab Requisition [facility] - Main Lab 299 [facility] [place] [address] Harris Gross MD [address] [place], [place] [phone] Altered mental status, unspecified; Dysuria Social History [...] reflex microscopic (03/06/2025 12:00 AM EDT) Specific [place] Urine 1.008 1.003 - 1.030 LAB URINALYSIS - AUTOMATED METHOD 03/06/2025 10:34 AM [facility] pH, Urine 7.5 5.0 - 8.0 pH LAB URINALYSIS - AUTOMATED METHOD 03/06/2025 10:34 AM [facility] Leukocytes, Urine Negative Negative LAB URINALYSIS - AUTOMATED METHOD 03/06/2025 10:34 AM [facility] Nitrite, Urine Negative Negative LAB URINALYSIS - AUTOMATED METHOD 03/06/2025 10:34 AM [facility] Protein, Urine Negative <=Trace mg/dL LAB URINALYSIS - AUTOMATED METHOD 03/06/2025 10:34 AM [facility] Glucose, Urine Negative Negative mg/dL LAB URINALYSIS - AUTOMATED METHOD 03/06/2025 10:34 AM [facility] Ketones, Urine Negative Negative mg/dL LAB URINALYSIS - AUTOMATED METHOD 03/06/2025 10:34 AM [facility] Urobilinogen, Urine 0.2 0.2 - 1.0 mg/dL LAB URINALYSIS - AUTOMATED METHOD 03/06/2025 10:34 AM [facility] Bilirubin, Urine Negative Negative LAB URINALYSIS - AUTOMATED METHOD 03/06/2025 10:34 AM [facility] Blood, Urine Negative Negative LAB URINALYSIS - AUTOMATED METHOD 03/06/2025 10:34 AM [facility] Urine Urine specimen obtained by clean catch procedure / Unknown 03/06/2025 03/06/2025 8:51 AM EDT us Harris Gross MD LAB URINE ORDERABLES Final Resul t [facility] [address] [place] [address], * Culture urine (03/06/2025 12:00 AM EDT) Culture, Urine <10,000 CFU/mL gram positive cocci, insignificant count, no further workup 03/07/2025 1:00 PM EDT [facility] Urine Urine specimen obtained by clean catch procedure / Unknown 03/06/2025 03/06/2025 8:51 AM EDT Harris Gross MD LAB MICROBIOLOGY - GENERAL ORDER ROEL Final Result [facility] [address] [place] [address], documented in this encounter Visit Diagnoses Diagnosis Altered mental status, unspecified Dysuria documented in this encounter Care Teams Price Accuracy Supervisor Relationship Specialty Start Date End Date Harris Gross MD [address] [place] [address] [address] [place] [address] PCP - General Geriatric Medicine 02/13/25 documented as of this encounter
--- OUTSIDE RECORDS SUMMARY | 2025-07-26 10:22 | XMS_ITS | Encounter Summary ---
Author Organization [facility] Address [address] [place] [address] Care Team Providers Care Gizzard Peeler Name Role Phone Harris Gross MD Primary Care Provider [phone] Encounter Details Date Type Department Care Team (Late st Contact Info) Description 06/06/2025 Lab Requisition [facility] - Main Lab 299 [facility] [place] [address] Harris Gross MD [address] [place], [place] [phone] Essential (primary) hypertension; Chronic obstructive pulmonary disease, [...] mmol/L LAB CHEMISTRY METHOD 06/09/2025 11:53 AM [facility] Potassium 4.4 3.5 - 5.5 mmol/L LAB CHEMISTRY METHOD 06/09/2025 11:53 AM [facility] Chloride 104 96 - 110 mmol/L LAB CHEMISTRY METHOD 06/09/2025 11:53 AM [facility] CO2 29 21 - 32 mmol/L LAB CHEMISTRY METHOD 06/09/2025 11:53 AM [facility] Anion Gap 5 3 - 11 LAB CHEMISTRY METHOD 06/09/2025 11:53 AM [facility] Glucose 73 70 - 100 mg/dL LAB CHEMISTRY METHOD 06/09/2025 11:53 AM [facility] BUN 26(H) 5 - 25 mg/dL LAB CHEMISTRY METHOD 06/09/2025 11:53 AM [facility] Creatinine 0.93 0.50 - 1.10 mg/dL LAB CHEMISTRY METHOD 06/09/2025 11:53 AM [facility] LAB eGFR 61 >=60 mL/min/1. 73m2 LAB CHEMISTRY METHOD 06/09/2025 11:53 AM [facility] LAB Comment:Calculation based on the Chronic Kidney Disease Epidemiology Collaboration (CKD-EPI) equation refit without adjustment for race. BUN/Creatinine Ratio 28.0 LAB CHEMISTRY METHOD 06/09/2025 11:53 AM [facility] Calcium 9.1 8.5 - 10.5 mg/dL LAB CHEMISTRY METHOD 06/09/2025 11:53 AM [facility] Blood Venous blood specimen / Unknown Venipuncture / Unknown 06/09/2025 4:55 AM EDT 06/09/2025 10:20 AM EDT Harris Gross MD LAB BLOOD ORDERABLES Final Resul t [facility] [address] [place] [address], * (ABNORMAL) Complete blood count (06/09/2025 4:55 AM EDT) WBC 3.1(L) 4.8 - 10.8 K/mcL LAB HEMETOLOGY METHOD 06/09/2025 11:14 AM EDT [facility] RBC 2.80(L) 3.80 - 4.80 M/mcL LAB HEMETOLOGY METHOD 06/09/2025 11:14 AM EDT [facility] Hemoglobin 8.0(L) 11.5 - 16.0 g/dL LAB HEMETOLOGY METHOD 06/09/2025 11:14 AM [facility] Hematocrit 26.2(L) 35.0 - 47.0 % LAB HEMETOLOGY METHOD 06/09/2025 11:14 AM EDT [facility] MCV 94.9 79.0 - 98.0 FL LAB HEMETOLOGY METHOD 06/09/2025 11:14 AM EDT [facility] MCH 29.0 27.0 - 32.0 pcg LAB HEMETOLOGY METHOD 06/09/2025 11:14 AM [facility] MCHC 30.5(L) 32.0 - 37.0 g/dL LAB HEMETOLOGY METHOD 06/09/2025 11:14 AM EDT [facility] RDW 18.4(H) 11.0 - 15.0 % LAB HEMETOLOGY METHOD 06/09/2025 11:14 AM EDT [facility] Platelets 130 130 - 400 K/mcL LAB HEMETOLOGY METHOD 06/09/2025 11:14 AM [facility] MPV 12.1(H) 7.0 - 11.0 FL LAB HEMETOLOGY METHOD 06/09/2025 11:14 AM EDT [facility] NRBC 0.0 <1.0 % LAB HEMETOLOGY METHOD 06/09/2025 11:14 AM EDT [facility] NRBC Absolute 0.00 <0.10 K/mcL LAB HEMETOLOGY METHOD 06/09/2025 11:14 AM EDT [facility] Blood Venous blood specimen / Unknown Venipuncture / Unknown 06/09/2025 4:55 AM EDT 06/09/2025 10:20 AM EDT us Harris Gross MD LAB BLOOD ORDERABLES Final Resul t [facility] [address] [place] [address], documented in this encounter Visit Diagnoses Diagnosis Essential (primary) hypertension Unspecified essential hypertension Chronic obstructive pulmonary disease, unspecified (CMS/HCC V24, CMS/HCC V28) documented in this encounter Care Teams Gizzard Peeler Relationship Specialty Start Date End Date Harris Gross MD [address] [place] [address] [address] [place] [address] PCP - General Geriatric Medicine 02/13/25 documented as of this encounter
--- OUTSIDE RECORDS SUMMARY | 2025-07-26 10:22 | XMS_ITS | Encounter Summary ---
Author Organization [facility] Address [address] [place] [address] Care Team Providers Care Inspector Agricultural Commodities Name Role Phone Harris Gross MD Primary Care Provider [phone] Encounter Details Date Type Department Care Team (Late st Contact Info) Description 06/13/2025 Lab Requisition [facility] - Main Lab 299 [facility] [place] [address] Harris Gross MD [address] [place], [place] [phone] Essential (primary) hypertension; Chronic obstructive pulmonary disease, [...] mmol/L LAB CHEMISTRY METHOD 06/16/2025 10:31 AM [facility] Potassium 4.3 3.5 - 5.5 mmol/L LAB CHEMISTRY METHOD 06/16/2025 10:31 AM [facility] Chloride 104 96 - 110 mmol/L LAB CHEMISTRY METHOD 06/16/2025 10:31 AM [facility] CO2 28 21 - 32 mmol/L LAB CHEMISTRY METHOD 06/16/2025 10:31 AM [facility] Anion Gap 6 3 - 11 LAB CHEMISTRY METHOD 06/16/2025 10:31 AM [facility] Glucose 77 70 - 100 mg/dL LAB CHEMISTRY METHOD 06/16/2025 10:31 AM [facility] BUN 27(H) 5 - 25 mg/dL LAB CHEMISTRY METHOD 06/16/2025 10:31 AM [facility] Creatinine 0.89 0.50 - 1.10 mg/dL LAB CHEMISTRY METHOD 06/16/2025 10:31 AM [facility] eGFR 64 >=60 mL/min/1. 73m2 LAB CHEMISTRY METHOD 06/16/2025 10:31 AM [facility] Comment:Calculation based on the Chronic Kidney Disease Epidemiology Collaboration (CKD-EPI) equation refit without adjustment for race. BUN/Creatinine Ratio 30.3 LAB CHEMISTRY METHOD 06/16/2025 10:31 AM [facility] Calcium 9.3 8.5 - 10.5 mg/dL LAB CHEMISTRY METHOD 06/16/2025 10:31 AM [facility] Blood Venous blood specimen / Unknown Venipuncture / Unknown 06/16/2025 5:01 AM EDT 06/16/2025 9:03 AM EDT Harris Gross MD LAB BLOOD ORDERABLES Final Resul t [facility] [address] [place] [address], * (ABNORMAL) Complete blood count (06/16/2025 5:01 AM EDT) WBC 3.2(L) 4.8 - 10.8 K/mcL LAB HEMETOLOGY METHOD 06/16/2025 10:06 AM EDT [facility] RBC 2.80(L) 3.80 - 4.80 M/mcL LAB HEMETOLOGY METHOD 06/16/2025 10:06 AM EDT [facility] Hemoglobin 8.3(L) 11.5 - 16.0 g/dL LAB HEMETOLOGY METHOD 06/16/2025 10:06 AM [facility] Hematocrit 27.0(L) 35.0 - 47.0 % LAB HEMETOLOGY METHOD 06/16/2025 10:06 AM EDT [facility] MCV 95.7 79.0 - 98.0 FL LAB HEMETOLOGY METHOD 06/16/2025 10:06 AM EDT [facility] MCH 29.4 27.0 - 32.0 pcg LAB HEMETOLOGY METHOD 06/16/2025 10:06 AM [facility] MCHC 30.7(L) 32.0 - 37.0 g/dL LAB HEMETOLOGY METHOD 06/16/2025 10:06 AM EDT [facility] RDW 17.9(H) 11.0 - 15.0 % LAB HEMETOLOGY METHOD 06/16/2025 10:06 AM EDT [facility] Platelets 119(L) 130 - 400 K/mcL LAB HEMETOLOGY METHOD 06/16/2025 10:06 AM [facility] MPV 12.1(H) 7.0 - 11.0 FL LAB HEMETOLOGY METHOD 06/16/2025 10:06 AM EDT [facility] NRBC 0.0 <1.0 % LAB HEMETOLOGY METHOD 06/16/2025 10:06 AM EDT [facility] NRBC Absolute 0.00 <0.10 K/mcL LAB HEMETOLOGY METHOD 06/16/2025 10:06 AM EDT [facility] Blood Venous blood specimen / Unknown Venipuncture / Unknown 06/16/2025 5:01 AM EDT 06/16/2025 9:03 AM EDT us Harris Gross MD LAB BLOOD ORDERABLES Final Resul t [facility] [address] [place] [address], documented in this encounter Visit Diagnoses Diagnosis Essential (primary) hypertension Unspecified essential hypertension Chronic obstructive pulmonary disease, unspecified (CMS/HCC V24, CMS/HCC V28) documented in this encounter Care Teams Inspector Agricultural Commodities Relationship Specialty Start Date End Date Harris Gross MD [address] [place] [address] [address] [place] [address] PCP - General Geriatric Medicine 02/13/25 documented as of this encounter
--- OUTSIDE RECORDS SUMMARY | 2025-07-26 10:22 | XMS_ITS | Clinical Summary ---
Author Organization [facility] Address [address] [place] [phone] Phone Care Team Providers Care Business Affairs Manager Name Role Phone Nick Gomez Primary [...] file Insurance MEDICARE PART A & B [facility] MEDICARE SUPPLEMENT MEDICARE PART A & B [employer] MEDICARE SUPPLEMENT MEDICARE PART A & B [employer] MEDICARE SUPPLEMENT MEDICARE PART A & B [facility] MEDICARE SUPPLEMENT MEDICARE PART A & B [facility] MEDICARE SUPPLEMENT MEDICARE PART A & B [facility] MEDICARE SUPPLEMENT MEDICARE PART A & B [facility] MEDICARE SUPPLEMENT MEDICARE PART A & B Member Subscriber Plan / Payer (Ef fective 2005-Present) Name:Bella Henley Member ID:[id number] Relation to Subscriber:Self Name:Bella Henley Subscriber ID:[id number] Payer ID:[id number] Group ID:Not on file Type:Medicare Address: [employer] [address] [place] [id number] [facility] MEDICARE SUPPLEMENT MEDICARE PART A & B [facility] Care Teams Business Affairs Manager Relationship Specialty Start Date End Date Nick Gomez PA [address] [place] [id number] PCP - General Physician Rn Ante Partum 05/14/23 Additional Source Comments The information contained in this document represents components of the legal health record. It is not the complete legal health record.[facility]
--- OUTSIDE RECORDS SUMMARY | 2025-07-26 10:22 | XMS_ITS | Clinical Summary ---
Author Organization [address] Address [address] [place] [address] Phone Care Team Providers Care Actuarial Technician Name Role Phone Harris Gross MD Primary Care Provider [phone] Encounters Date Type Department Care Team Description 06/21/2025 Lab Requisition [facility] [address] [place] [phone] Harris Gross MD Essential (primary) hypertension; Chronic obstructive pulmonary disease, unspecified (CMS/HCC V24, CMS/HCC V28) 06/13/2025 Lab Requisition [facility] [address] [place] [phone] Harris Gross MD Essential (primary) hypertension; Chronic obstructive pulmonary disease, unspecified (CMS/HCC V24, CMS/HCC V28) 06/06/2025 Lab Requisition [facility] [address] [place] [phone] Harris Gross MD Essential (primary) hypertension; Chronic obstructive pulmonary disease, unspecified (CMS/HCC V24, CMS/HCC V28) 05/30/2025 Lab Requisition [facility] [address] [place] [phone] Harris Gross MD Essential (primary) hypertension; Chronic obstructive pulmonary disease, unspecified (CMS/HCC V24, CMS/HCC V28) 05/30/2025 Lab Requisition [facility] [address] [place] [phone] Harris Gross MD Frequency of micturition 05/28/2025 Lab Requisition [facility] [address] [place] [phone] Harris Gross MD Essential (primary) hypertension 05/25/2025 Lab Requisition [facility] [address] [place] [phone] Harris Gross MD Essential (primary) hypertension; Chronic obstructive pulmonary disease, unspecified (CMS/HCC V24, CMS/HCC V28); Gastro-esophageal reflux disease without esophagitis; Anemia, unspecified 05/22/2025 Lab Requisition [facility] [address] [place] [phone] Harris Gross MD Essential (primary) hypertension; Anemia, unspecified 05/21/2025 Lab Requisition [facility] [address] [place] [phone] Harris Gross MD Essential (primary) hypertension; Chronic [...] K/mcL LAB HEMETOLOGY METHOD 06/16/2025 10:[address] [facility] RBC 2.80(L) 3.80 - 4.80 M/mcL LAB HEMETOLOGY METHOD 06/16/2025 10:[address] [facility] Hemoglobin 8.3(L) 11.5 - 16.0 g/dL LAB HEMETOLOGY METHOD 06/16/2025 10:[address] [facility] Hematocrit 27.0(L) 35.0 - 47.0 % LAB HEMETOLOGY METHOD 06/16/2025 10:[address] [facility] MCV 95.7 79.0 - 98.0 [...] % LAB HEMETOLOGY METHOD 06/16/2025 10:[address] [facility] NRBC Absolute 0.00 <0.10 K/mcL LAB HEMETOLOGY METHOD 06/16/2025 10:[address] [facility] Blood Venous blood specimen / Unknown Venipuncture / Unknown 06/16/2025 5:01 AM EDT 06/16/2025 9:03 AM EDT us Harris Gross MD LAB BLOOD ORDERABLES Final Resul t [facility] [address] [place] [address], * (ABNORMAL) Basic metabolic panel (06/16/2025 5:01 AM EDT) Only the most recent of6 resultswithin the time period is included. [facility] Sodium 138 133 - 145 mmol/L LAB CHEMISTRY METHOD 06/16/2025 10:[address] [facility] Potassium 4.3 3.5 - 5.5 mmol/L LAB CHEMISTRY METHOD 06/16/2025 10:[address] [facility] Chloride 104 96 - 110 mmol/L LAB CHEMISTRY METHOD 06/16/2025 10:[address] [facility] CO2 28 21 - 32 mmol/L LAB CHEMISTRY METHOD 06/16/2025 10:[address] [facility] Anion Gap 6 3 - 11 LAB CHEMISTRY METHOD 06/16/2025 10:[address] [facility] Glucose 77 70 - 100 mg/dL LAB CHEMISTRY METHOD 06/16/2025 10:[address] [facility] BUN 27(H) 5 - 25 mg/dL LAB CHEMISTRY METHOD 06/16/2025 10:[address] [facility] Creatinine 0.89 0.50 - 1.10 mg/dL LAB CHEMISTRY METHOD 06/16/2025 10:[address] [facility] eGFR 64 >=60 mL/min/1. 73m2 LAB CHEMISTRY METHOD 06/16/2025 10:[address] [facility] Comment:Calculation based on the Chronic Kidney Disease Epidemiology Collaboration (CKD-EPI) equation refit without adjustment for race. BUN/Creatinine Ratio 30.3 LAB CHEMISTRY METHOD 06/16/2025 10:[address] [facility] Calcium 9.3 8.5 - 10.5 mg/dL LAB CHEMISTRY METHOD 06/16/2025 10:[address] [facility] Blood Venous blood specimen / Unknown Venipuncture / Unknown 06/16/2025 5:01 AM EDT 06/16/2025 9:03 AM EDT us Harris Gross MD LAB BLOOD ORDERABLES Final Resul t [facility] [address] [place] [address], [place] [phone] * Urinalysis with reflex microscopic (05/29/2025 8:00 AM EDT) Specific [place] Urine 1.016 1.003 - 1.030 LAB URINALYSIS - AUTOMATED METHOD 05/30/2025 8:[address] [facility] pH, Urine 5.5 5.0 - 8.0 pH LAB URINALYSIS - AUTOMATED METHOD 05/30/2025 8:[address] [facility] Leukocytes, Urine Negative Negative LAB URINALYSIS - AUTOMATED METHOD 05/30/2025 8:[address] [facility] Nitrite, Urine Negative Negative LAB URINALYSIS - AUTOMATED METHOD 05/30/2025 8:[address] [facility] Protein, Urine Negative <=Trace mg/dL LAB URINALYSIS - AUTOMATED METHOD 05/30/2025 8:[address] [facility] Glucose, Urine Negative Negative mg/dL LAB URINALYSIS - AUTOMATED METHOD 05/30/2025 8:[address] [facility] Ketones, Urine Negative Negative mg/dL LAB URINALYSIS - AUTOMATED METHOD 05/30/2025 8:[address] [facility] Urobilinogen, Urine 0.2 0.2 - 1.0 mg/dL LAB URINALYSIS - AUTOMATED METHOD 05/30/2025 8:[address] [facility] Bilirubin, Urine Negative Negative LAB URINALYSIS - AUTOMATED METHOD 05/30/2025 8:[address] [facility] Blood, Urine Negative Negative LAB URINALYSIS - AUTOMATED METHOD 05/30/2025 8:[address] [facility] Urine Urine specimen obtained by clean catch procedure / Unknown Non-blood Collection / Unknown 05/29/2025 8:00 AM EDT 05/30/2025 8:05 AM EDT us Harris Gross MD LAB URINE ORDERABLES Final Resul t Performing Organization Address City/[facility]/ZIP Co de Phone Number [facility] [address] [place] [address], [place] [phone] * (ABNORMAL) Culture urine (05/29/2025 8:00 AM [...] Final Result Performing Organization Address [facility] Co de Phone Number [facility] [address] [place] [address], [place] [phone] * Iron and TIBC (05/26/2025 4:52 AM [...] ORDERABLES Final Resul t Performing Organization Address City/[facility]/ZIP Co de Phone Number [facility] [address] [place] [address], [place] [phone] * Ferritin (05/26/2025 4:52 AM EDT) [facility] Ferritin 23 8 - 252 ng/mL LAB CHEMISTRY METHOD 05/26/2025 12:[address] [facility] Blood Venous blood specimen / Unknown Venipuncture / Unknown 05/26/2025 4:52 AM EDT 05/26/2025 10:18 AM EDT us Harris Gross MD LAB BLOOD ORDERABLES Final Resul t Performing Organization Address City/[facility]/ZIP Co de Phone Number [facility] [address] [place] [address], [place] [phone] * (ABNORMAL) Comprehensive metabolic panel (05/21/2025 4:56 AM EDT) [facility] Sodium 138 133 - 145 mmol/L [...] mg/dL LAB CHEMISTRY METHOD 05/21/2025 11:[address] [facility] BUN 28(H) 5 - 25 mg/dL LAB CHEMISTRY METHOD 05/21/2025 11:[address] [facility] Creatinine 0.96 0.50 - 1.10 mg/dL LAB CHEMISTRY METHOD 05/21/2025 11:[address] [facility] eGFR 58(L) >=60 mL/min/1. 73m2 LAB CHEMISTRY METHOD 05/21/2025 11:[address] [facility] Comment:Calculation based on the Chronic Kidney Disease Epidemiology Collaboration (CKD-EPI) equation refit without adjustment for race. BUN/Creatinine Ratio 29.2 LAB CHEMISTRY METHOD 05/21/2025 11:[address] [facility] Calcium 8.7 8.5 - 10.5 mg/dL LAB CHEMISTRY METHOD 05/21/2025 11:[address] [facility] AST (SGOT) 17 10 - 42 unit/L LAB CHEMISTRY METHOD 05/21/2025 11:[address] [facility] ALT (SGPT) 13 10 - 60 unit/L LAB CHEMISTRY METHOD 05/21/2025 11:[address] [facility] Alkaline Phosphatase 86 42 - 121 unit/L LAB CHEMISTRY METHOD 05/21/2025 11:[address] [facility] Total Protein 6.1 6.0 - 8.0 g/dL LAB CHEMISTRY METHOD 05/21/2025 11:[address] [facility] Albumin 3.4 3.2 - 5.0 g/dL LAB CHEMISTRY METHOD 05/21/2025 11:[address] [facility] Total Bilirubin 0.2 0.0 - 1.4 mg/dL LAB CHEMISTRY METHOD 05/21/2025 11:[address] [facility] Blood Venous blood specimen / Unknown Venipuncture / Unknown 05/21/2025 4:56 AM EDT 05/21/2025 10:01 AM EDT us Harris Gross MD LAB BLOOD ORDERABLES Final Resul t [facility] [address] [place] [address], [place] [phone] from Last 3 Months Insurance [id number] Advance Directives Documents on File Type Date Recorded 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
--- OUTSIDE RECORDS SUMMARY | 2025-07-26 10:22 | XMS_ITS | Encounter Summary ---
Author Organization [facility] Address [address] [place] [address] Care Team Providers Care Expert Medical Writer Name Role Phone Harris Gross MD Primary Care Provider [phone] Encounter Details Date Type Department Care Team (Late st Contact Info) Description 02/19/2025 Lab Requisition [facility] Lab [address] [facility] [place] [address] Harris Gross MD [address] [place], [place] [phone] Other retirement (current) drug therapy Social History [...] AM EDT Other retirement (current) drug therapy documented in this encounter Results * (ABNORMAL) Folate (02/19/2025 5:09 AM EDT) Folate >20.0(H) 2.8 - 17.0 ng/ml LAB CHEMISTRY METHOD 02/19/2025 8:26 AM EDT [facility] Blood Venous blood specimen / Unknown Venipuncture / Unknown 02/19/2025 5:09 AM EDT 02/19/2025 6:45 AM EDT Harris Gross MD LAB BLOOD ORDERABLES Final Resul t [facility] ([facility]) [facility] [address] [place] [address], documented in this encounter Visit Diagnoses Diagnosis Other retirement (current) drug therapy documented in this encounter Care Teams Expert Medical Writer Relationship Specialty Start Date End Date Harris Gross MD [address] [place] [address] [address] [place] [address] PCP - General Geriatric Medicine 02/13/25 documented as of this encounter
--- OUTSIDE RECORDS SUMMARY | 2025-07-26 10:22 | XMS_ITS | Encounter Summary ---
Author Organization [facility] Address [address] [place] [address] Care Team Providers Care Interlocking Tower Operator Name Role Phone Harris Gross MD Primary Care Provider [phone] Encounter Details Date Type Department Care Team (Late st Contact Info) Description 05/21/2025 Lab Requisition [facility] - Main Lab [address] [facility] [place] [address] Harris Gross MD [address] [place], [place] [phone] Essential (primary) hypertension; Chronic obstructive pulmonary disease, [...] mmol/L LAB CHEMISTRY METHOD 05/21/2025 11:07 AM [facility] Potassium 4.2 3.5 - 5.5 mmol/L LAB CHEMISTRY METHOD 05/21/2025 11:07 AM [facility] Chloride 104 96 - 110 mmol/L LAB CHEMISTRY METHOD 05/21/2025 11:07 AM [facility] CO2 29 21 - 32 mmol/L LAB CHEMISTRY METHOD 05/21/2025 11:07 AM [facility] Anion Gap 5 3 - 11 LAB CHEMISTRY METHOD 05/21/2025 11:07 AM [facility] Glucose 74 70 - 100 mg/dL LAB CHEMISTRY METHOD 05/21/2025 11:07 AM [facility] BUN 28(H) 5 - 25 mg/dL LAB CHEMISTRY METHOD 05/21/2025 11:07 AM [facility] Creatinine 0.96 0.50 - 1.10 mg/dL LAB CHEMISTRY METHOD 05/21/2025 11:07 AM [facility] eGFR 58(L) >=60 mL/min/1. 73m2 LAB CHEMISTRY METHOD 05/21/2025 11:07 AM [facility] Comment:Calculation based on the Chronic Kidney Disease Epidemiology Collaboration (CKD-EPI) equation refit without adjustment for race. BUN/Creatinine Ratio 29.2 LAB CHEMISTRY METHOD 05/21/2025 11:07 AM [facility] Calcium 8.7 8.5 - 10.5 mg/dL LAB CHEMISTRY METHOD 05/21/2025 11:07 AM [facility] AST (SGOT) 17 10 - 42 unit/L LAB CHEMISTRY METHOD 05/21/2025 11:07 AM [facility] ALT (SGPT) 13 10 - 60 unit/L LAB CHEMISTRY METHOD 05/21/2025 11:07 AM EDT [facility] Alkaline Phosphatase 86 42 - 121 unit/L LAB CHEMISTRY METHOD 05/21/2025 11:07 AM EDT [facility] Total Protein 6.1 6.0 - 8.0 g/dL LAB CHEMISTRY METHOD 05/21/2025 11:07 AM [facility] Albumin 3.4 3.2 - 5.0 g/dL LAB CHEMISTRY METHOD 05/21/2025 11:07 AM T [facility] Total Bilirubin 0.2 0.0 - 1.4 mg/dL LAB CHEMISTRY METHOD 05/21/2025 11:07 AM [facility] Blood Venous blood specimen / Unknown Venipuncture / Unknown 05/21/2025 4:56 AM EDT 05/21/2025 10:01 AM EDT us Harris Gross MD LAB BLOOD ORDERABLES Final Resul t [facility] [address] [place] [address], * (ABNORMAL) Complete blood count (05/21/2025 4:56 AM EDT) WBC 3.1(L) 4.8 - 10.8 K/[facility] LAB [facility] RBC 2.50(L) 3.80 - 4.80 M/mcL LAB HEMETOLOGY METHOD [facility] Hemoglobin 6.9(L) 11.5 - 16.0 g/dL LAB HEMETOLOGY METHOD 05/21/2025 10:50 AM [facility] Hematocrit 22.8(L) 35.0 - 47.0 % LAB HEMETOLOGY METHOD 05/21/2025 10:50 AM EDT [facility] MCV 91.2 79.0 - 98.0 FL LAB HEMETOLOGY METHOD 05/21/2025 10:50 AM EDT [facility] MCH 27.6 27.0 - 32.0 pcg LAB HEMETOLOGY METHOD 05/21/2025 10:50 AM EDT [facility] MCHC 30.3(L) 32.0 - 37.0 g/dL LAB HEMETOLOGY METHOD 05/21/2025 10:50 AM EDT [facility] RDW 14.9 11.0 - 15.0 % LAB HEMETOLOGY METHOD 05/21/2025 10:50 AM EDT [facility] Platelets 149 130 - 400 K/mcL LAB HEMETOLOGY METHOD 05/21/2025 10:50 AM EDT [facility] MPV 11.7(H) 7.0 - 11.0 FL LAB HEMETOLOGY METHOD 05/21/2025 10:50 AM EDT [facility] NRBC 0.0 <1.0 % LAB HEMETOLOGY METHOD 05/21/2025 10:50 AM EDT [facility] NRBC Absolute 0.00 <0.10 K/mcL LAB HEMETOLOGY METHOD 05/21/2025 10:50 AM EDT [facility] Blood Venous blood specimen / Unknown Venipuncture / Unknown 05/21/2025 4:56 AM EDT 05/21/2025 10:01 AM EDT us Harris Gross MD LAB BLOOD ORDERABLES Final Resul t [facility] [address] [place] [address], documented in this encounter Visit Diagnoses Diagnosis Essential (primary) hypertension Unspecified essential hypertension Chronic obstructive pulmonary disease, unspecified (CMS/HCC V24, CMS/HCC V28) Dizziness and giddiness documented in this encounter Care Teams Interlocking Tower Operator Relationship Specialty Start Date End Date Harris Gross MD [address] [place] [address] [address] [place] [address] PCP - General Geriatric Medicine 02/13/25 documented as of this encounter
--- OUTSIDE RECORDS SUMMARY | 2025-07-26 10:22 | XMS_ITS | Encounter Summary ---
Author Organization [facility] Address [address] [place] [address] Care Team Providers Care Folder Stitcher Operator Name Role Phone Harris Gross MD Primary Care Provider [phone] Encounter Details Date Type Department Care Team (Late st Contact Info) Description 06/21/2025 Lab Requisition [facility] - Main Lab [address] [facility] [place] [address] Harris Gross MD [address] [facility] [address] [place] [address] Essential (primary) hypertension; Chronic obstructive pulmonary disease, [...] V28) documented in this encounter Care Teams Folder Stitcher Operator Relationship Specialty Start Date End Date Harris Gross MD [address] [facility] [address] [place], [place] [phone] PCP - General Geriatric Medicine 02/13/25 documented as of this encounter
--- OUTSIDE RECORDS SUMMARY | 2025-07-26 10:22 | XMS_ITS | Encounter Summary ---
Author Organization [facility] [address] Address [address] [place] [address] Care Team Providers Care Asphalt Spreader Name Role Phone Harris Gross MD Primary Care Provider [phone] Encounter Details Date Type Department Care Team (Late st Contact Info) Description 05/30/2025 Lab Requisition [facility] - Main Lab [address] [facility] [place] [address] Harris Gross MD [address] [place], [place] [phone] Frequency of micturition Social History Tobacco Use [...] reflex microscopic (05/29/2025 8:00 AM EDT) Specific [place] Urine 1.016 1.003 - 1.030 LAB URINALYSIS - AUTOMATED METHOD 05/30/2025 8:[address] [facility] pH, Urine 5.5 5.0 - 8.0 pH LAB URINALYSIS - AUTOMATED METHOD 05/30/2025 8:[address] [facility] Leukocytes, Urine Negative Negative LAB URINALYSIS - AUTOMATED METHOD 05/30/2025 8:[address] [facility] Nitrite, Urine Negative Negative LAB URINALYSIS - AUTOMATED METHOD 05/30/2025 8:[address] [facility] Protein, Urine Negative <=Trace mg/dL LAB URINALYSIS - AUTOMATED METHOD 05/30/2025 8:[address] [facility] Glucose, Urine Negative Negative mg/dL LAB URINALYSIS - AUTOMATED METHOD 05/30/2025 8:[address] [facility] Ketones, Urine Negative Negative mg/dL LAB URINALYSIS - AUTOMATED METHOD 05/30/2025 8:[address] [facility] Urobilinogen, Urine 0.2 0.2 - 1.0 mg/dL LAB URINALYSIS - AUTOMATED METHOD 05/30/2025 8:[address] [facility] Bilirubin, Urine Negative Negative LAB URINALYSIS - AUTOMATED METHOD 05/30/2025 8:[address] [facility] Blood, Urine Negative Negative LAB URINALYSIS - AUTOMATED METHOD 05/30/2025 8:[address] [facility] Urine Urine specimen obtained by clean catch procedure / Unknown Non-blood Collection / Unknown 05/29/2025 8:00 AM EDT 05/30/2025 8:05 AM EDT us Harris Gross MD LAB URINE ORDERABLES Final Resul t [facility] [address] [place] [address], * (ABNORMAL) Culture urine (05/29/2025 8:00 AM EDT) Culture, Urine 10,000-49,000 CFU/mL Streptococcus viridans group(A) 06/03/2025 8:59 AM EDT [facility] Comment: Susceptibility testing not routinely [...] EDT 05/30/2025 8:05 AM EDT Narrative [facility] - 06/03/2025 8:59 AM EDT Additional colony types present in insignificant amounts. Harris Gross MD LAB MICROBIOLOGY - GENERAL ORDER ROEL Final Result [facility] [address] [place] [address], documented in this encounter Visit Diagnoses Diagnosis Frequency of micturition Urinary frequency documented in this encounter Care Teams Asphalt Spreader Relationship Specialty Start Date End Date Harris Gross MD [address] [place] [address] [address] [place] [address] PCP - General Geriatric Medicine 02/13/25 documented as of this encounter
--- OUTSIDE RECORDS SUMMARY | 2025-07-26 10:22 | XMS_ITS | Encounter Summary ---
Author Organization [facility] Address [address] [place] [address] Care Team Providers Care Checkroom Chief Name Role Phone Harris Gross MD Primary Care Provider [phone] Encounter Details Date Type Department Care Team (Late st Contact Info) Description 05/30/[address] [facility] - Main Lab [address] [facility] [place] [address] Harris Gross MD [address] [place], [place] [phone] Essential (primary) hypertension; Chronic obstructive pulmonary disease, [...] mmol/L LAB CHEMISTRY METHOD 06/02/2025 12:46 PM [facility] Potassium 4.0 3.5 - 5.5 mmol/L LAB CHEMISTRY METHOD 06/02/2025 12:46 PM [facility] Chloride 106 96 - 110 mmol/L LAB CHEMISTRY METHOD 06/02/2025 12:46 PM [facility] CO2 27 21 - 32 mmol/L LAB CHEMISTRY METHOD 06/02/2025 12:46 PM [facility] Anion Gap 7 3 - 11 LAB CHEMISTRY METHOD 06/02/2025 12:46 PM [facility] Glucose 69(L) 70 - 100 mg/dL LAB CHEMISTRY METHOD 06/02/2025 12:46 PM [facility] BUN 21 5 - 25 mg/dL LAB CHEMISTRY METHOD 06/02/2025 12:46 PM [facility] Creatinine 0.86 0.50 - 1.10 mg/dL LAB CHEMISTRY METHOD 06/02/2025 12:46 PM [facility] eGFR 67 >=60 mL/min/1. 73m2 LAB CHEMISTRY METHOD 06/02/2025 12:46 PM [facility] Comment:Calculation based on the Chronic Kidney Disease Epidemiology Collaboration (CKD-EPI) equation refit without adjustment for race. BUN/Creatinine Ratio 24.4 LAB CHEMISTRY METHOD 06/02/2025 12:46 PM [facility] Calcium 9.0 8.5 - 10.5 mg/dL LAB CHEMISTRY METHOD 06/02/2025 12:46 PM [facility] Blood Venous blood specimen / Unknown Venipuncture / Unknown 06/02/2025 4:54 AM EDT 06/02/2025 10:56 AM EDT Harris Gross MD LAB BLOOD ORDERABLES Final Resul t [facility] [address] [place] [address], * (ABNORMAL) Complete blood count (06/02/2025 4:54 AM EDT) WBC 3.1(L) 4.8 - 10.8 K/mcL LAB HEMETOLOGY METHOD 06/02/2025 1:02 PM EDT [facility] RBC 2.70(L) 3.80 - 4.80 M/mcL LAB HEMETOLOGY METHOD 06/02/2025 1:02 PM EDT [facility] Hemoglobin 7.8(L) 11.5 - 16.0 g/dL LAB HEMETOLOGY METHOD [facility] Hematocrit 25.7(L) 35.0 - 47.0 % LAB HEMETOLOGY METHOD 06/02/2025 [facility] MCV 95.9 79.0 - 98.0 FL LAB HEMETOLOGY METHOD 06/02/2025 1:02 PM EDT [facility] MCH 29.1 27.0 - 32.0 pcg LAB HEMETOLOGY METHOD 06/02/2025 1:02 PM [facility] MCHC 30.4(L) 32.0 - 37.0 g/dL LAB HEMETOLOGY METHOD 06/02/2025 1:02 PM EDT [facility] RDW 17.8(H) 11.0 - 15.0 % LAB HEMETOLOGY METHOD 06/02/2025 1:02 PM EDT [facility] Platelets 109(L) 130 - 400 K/mcL LAB HEMETOLOGY METHOD 06/02/2025 1[facility] MPV 12.3(H) 7.0 - 11.0 FL LAB HEMETOLOGY METHOD 06/02/2025 1:02 PM EDT [facility] NRBC 0.0 <1.0 % LAB HEMETOLOGY METHOD 06/02/2025 1:02 PM EDT [facility] NRBC Absolute 0.00 <0.10 K/mcL LAB HEMETOLOGY METHOD 06/02/2025 1:02 PM EDT [facility] Blood Venous blood specimen / Unknown Venipuncture / Unknown 06/02/2025 4:54 AM EDT 06/02/2025 10:56 AM EDT us Harris Gross MD LAB BLOOD ORDERABLES Final Resul t [facility] [address] [place] [address], documented in this encounter Visit Diagnoses Diagnosis Essential (primary) hypertension Unspecified essential hypertension Chronic obstructive pulmonary disease, unspecified (CMS/HCC V24, CMS/HCC V28) documented in this encounter Care Teams Checkroom Chief Relationship Specialty Start Date End Date Harris Gross MD [address] [place] [address] [address] [place] [address] PCP - General Geriatric Medicine 02/13/25 documented as of this encounter
--- OUTSIDE RECORDS SUMMARY | 2025-07-26 10:22 | XMS_ITS | Encounter Summary ---
Author Organization [facility] Address [address] [place] [address] Phone Care Team Providers Care Distillery Worker General Name Role Phone Norm Bates Unavailable Verónica Nielson MD Unavailable [phone] Bandar Renteria MD Unavailable [phone] Luis Milner CNP Unavailable [phone] Martha Estrada MD Unavailable [phone] David Walton MD Unavailable [phone] Deny Saleh DO Primary Care Provider [phone] Bandar Renteria MD Primary Care Provider Nick Gomez Primary Care Provider + Encounter Details Date Type Department Care Team (Late st Contact Info) Description 12/14/2020 Transcribe Orders [facility] [place] [address] [place] [address] Deny Saleh DO [address] [place] [address] [email or web address] Social History Tobacco Use Types Packs/Day Years [...] on filedocumented in this encounter Care Teams Distillery Worker General Relationship Specialty Start Date End Date Nunudelfina Deny SawyerDO [address] [place] [address] [email or web address] PCP - General Internal Medicine 08/09/17 01/09/21 Bandar Renteria MD [address] [place] [address] [address] PCP - General Internal Medicine 01/10/21 05/13/23 Nick Gomez PA [address] [place] [address] PCP - General Physician Small Craft Operator 05/14/23 Norm Bates PA [address] [place] [address] Historical LMR Provider 06/22/17 2 Verónica Nielson MD [address] [address] Historical LMR Provider 06/22/17 Bandar Renteria MD [address] [place] [address] [address] Historical LMR Provider 06/22/17 2 Luis Milner CNP [address] [address] [email or web address] Historical LMR Provider 06/22/17 09/11/21 Martha Estrada MD 4 [facility], [facility] [address] [email or web address] Historical LMR Provider 06/22/17 David Walton MD [address] [place] [address] Historical LMR Provider 06/22/17 2 documented as of this encounter Additional Source Comments The information contained in this document represents components of the legal health record. It is not the complete legal health record.[facility]
--- OUTSIDE RECORDS SUMMARY | 2025-07-26 10:22 | XMS_ITS | Encounter Summary ---
Author Organization [facility] Address [address] [place] [address] Care Team Providers Care Quartz Orientator Name Role Phone Harris Gross MD Primary Care Provider [phone] Encounter Details Date Type Department Care Team (Late st Contact Info) Description 05/22/2025 Lab Requisition [facility] - Main Lab [address] [facility] [place] [address] Harris Gross MD [address] [place], [place] [id number] Essential (primary) hypertension; Anemia, unspecified Social History [...] LAB CHEMISTRY METHOD 05/22/2025 10:[address] [facility] Potassium 3.9 3.5 - 5.5 mmol/L LAB CHEMISTRY METHOD 05/22/2025 10:28 AM [facility] Chloride 104 96 - 110 mmol/L LAB CHEMISTRY METHOD 05/22/2025 10:28 AM [facility] CO2 29 21 - 32 mmol/L LAB CHEMISTRY METHOD 05/22/2025 10:28 AM [facility] Anion Gap 5 3 - 11 LAB CHEMISTRY METHOD 05/22/2025 10:28 AM [facility] Glucose 66(L) 70 - 100 mg/dL LAB CHEMISTRY METHOD 05/22/2025 10:28 AM [facility] BUN 23 5 - 25 mg/dL LAB CHEMISTRY METHOD 05/22/2025 10:28 AM [facility] Creatinine 0.91 0.50 - 1.10 mg/dL LAB CHEMISTRY METHOD 05/22/2025 10:28 AM [facility] eGFR 62 >=60 mL/min/1. 73m2 LAB CHEMISTRY METHOD 05/22/2025 10:28 AM [facility] Comment:Calculation based on the Chronic Kidney Disease Epidemiology Collaboration (CKD-EPI) equation refit without adjustment for race. BUN/Creatinine Ratio 25.3 LAB CHEMISTRY METHOD 05/22/2025 10:28 AM [facility] Calcium 8.9 8.5 - 10.5 mg/dL LAB CHEMISTRY METHOD 05/22/2025 10:28 AM [facility] Blood Venous blood specimen / Unknown Venipuncture / Unknown 05/22/2025 5:27 AM EDT 05/22/2025 9:40 AM EDT us [place] Gross MD LAB BLOOD ORDERABLES Final Resul t [facility] [address] [place] [address], * (ABNORMAL) Complete blood count (05/22/2025 5:27 AM EDT) [facility] Signature WBC 2.8(L) 4.8 - 10.8 K/mcL LAB HEMETOLOGY METHOD 05/22/2025 11:24 AM [facility] RBC 2.50(L) 3.80 - 4.80 M/mcL LAB HEMETOLOGY METHOD 05/22/2025 11:24 AM [facility] Hemoglobin 7.0(L) 11.5 - 16.0 g/dL LAB HEMETOLOGY METHOD 05/22/2025 11:24 AM [facility] Hematocrit 23.2(L) 35.0 - 47.0 % LAB HEMETOLOGY METHOD 05/22/2025 11:24 AM [facility] MCV 91.3 79.0 - 98.0 FL LAB HEMETOLOGY METHOD 05/22/2025 11:24 AM [facility] MCH 27.6 27.0 - 32.0 pcg LAB HEMETOLOGY METHOD 05/22/2025 11:24 AM [facility] MCHC 30.2(L) 32.0 - 37.0 g/dL LAB HEMETOLOGY METHOD 05/22/2025 11:24 AM [facility] RDW 15.0 11.0 - 15.0 % LAB HEMETOLOGY METHOD 05/22/2025 11:24 AM [facility] Platelets 145 130 - 400 K/mcL LAB HEMETOLOGY METHOD 05/22/2025 11:24 AM [facility] MPV 11.9(H) 7.0 - 11.0 FL LAB HEMETOLOGY METHOD 05/22/2025 11:24 AM [facility] NRBC 0.0 <1.0 % LAB HEMETOLOGY METHOD 05/22/2025 11:24 AM EDT [facility] NRBC Absolute 0.00 <0.10 K/mcL LAB HEMETOLOGY METHOD 05/22/2025 11:[address] [facility] Blood Venous blood specimen / Unknown Venipuncture / Unknown 05/22/2025 5:27 AM EDT 05/22/2025 9:40 AM EDT us [place] Gross MD LAB BLOOD ORDERABLES Final Resul t [facility] [address] [place] [address], documented in this encounter Visit Diagnoses Diagnosis Essential (primary) hypertension Unspecified essential hypertension Anemia, unspecified documented in this encounter Care Teams Quartz Orientator Relationship Specialty Start Date End Date Harris Gross MD [address] [place] [address] [address] [place] [address] PCP - General Geriatric Medicine 02/13/25 documented as of this encounter
--- OUTSIDE RECORDS SUMMARY | 2025-07-26 10:22 | XMS_ITS | Encounter Summary ---
Author Organization [facility] Address [address] [place] [address] Care Team Providers Care Bed Setter Name Role Phone Harris Gross MD Primary Care Provider [phone] Encounter Details Date Type Department Care Team (Late st Contact Info) Description 02/13/2025 Lab Requisition [facility] - Main Lab [address] [facility] [place] [address] Harris Gross MD [address] [place], [place] [id number] Vitamin D deficiency, unspecified; Gastrointestinal hemorrhage, unspecified; [...] Vitamin B12 (02/13/2025 6:49 AM EDT) [facility] Vitamin B-12 391 250 - 900 pcg/mL LAB CHEMISTRY METHOD 02/13/2025 10:12 AM EDT [facility] Blood Venous blood specimen / Unknown Venipuncture / Unknown 02/13/2025 6:49 AM EDT 02/13/2025 8:56 AM EDT us [place] Gross MD LAB BLOOD ORDERABLES Final Resul t Performing Organization Address [facility]/ZIP Co de Phone Number [facility] [address] [place] [address], [place] [phone] * Vitamin D 25 hydroxy (02/13/2025 6:49 AM EDT) [facility] Vit D, 25-Hydroxy 57.4 30.0 - 80.0 ng/mL LAB CHEMISTRY METHOD 02/13/2025 11:18 AM EDT [facility] Blood Venous blood specimen / Unknown Venipuncture / Unknown 02/13/2025 6:49 AM EDT 02/13/2025 8:56 AM EDT us [place] Gross MD LAB BLOOD ORDERABLES Final Resul t [facility] [address] [place] [address], [place] [phone] * Thyroid stimulating hormone (02/13/2025 6:49 AM EDT) [facility] TSH 1.12 0.40 - 4.00 mcIU/mL LAB CHEMISTRY METHOD 02/13/2025 11:19 AM EDT [facility] Blood Venous blood specimen / Unknown Venipuncture / Unknown 02/13/2025 6:49 AM EDT 02/13/2025 8:56 AM EDT Harris Gross MD LAB BLOOD ORDERABLES Final Resul t [facility] [address] [place] [address], [place] [phone] * (ABNORMAL) Comprehensive metabolic panel (02/13/2025 6:49 AM EDT) Sodium 140 133 - 145 mmol/L LAB CHEMISTRY METHOD 02/13/2025 10:12 AM [facility] Potassium 3.8 3.5 - 5.5 mmol/L LAB CHEMISTRY METHOD 02/13/2025 10:12 AM [facility] Chloride 105 96 - 110 mmol/L LAB CHEMISTRY METHOD 02/13/2025 10:12 AM [facility] CO2 29 21 - 32 mmol/L LAB CHEMISTRY METHOD 02/13/2025 10:12 AM [facility] Anion Gap 6 3 - 11 LAB CHEMISTRY METHOD 02/13/2025 10:12 AM [facility] Glucose 91 70 - 100 mg/dL LAB CHEMISTRY METHOD 02/13/2025 10:12 AM [facility] BUN 24 5 - 25 mg/dL LAB CHEMISTRY METHOD 02/13/2025 10:12 AM [facility] Creatinine 0.88 0.50 - 1.10 mg/dL LAB CHEMISTRY METHOD 02/13/2025 10:12 AM [facility] eGFR 65 >=60 mL/min/1. 73m2 LAB CHEMISTRY METHOD 02/13/2025 10:12 AM [facility] Comment:Calculation based on the Chronic Kidney Disease Epidemiology Collaboration (CKD-EPI) equation refit without adjustment for race. BUN/Creatinine Ratio 27.3 LAB CHEMISTRY METHOD 02/13/2025 10:12 AM [facility] Calcium 9.2 8.5 - 10.5 mg/dL LAB CHEMISTRY METHOD 02/13/2025 10:12 AM [facility] AST (SGOT) 14 10 - 42 unit/L LAB CHEMISTRY METHOD 02/13/2025 10:12 AM [facility] ALT (SGPT) 14 10 - 60 unit/L LAB CHEMISTRY METHOD 02/13/2025 10:12 AM [facility] Alkaline Phosphatase 88 42 - 121 unit/L LAB CHEMISTRY METHOD 02/13/2025 10:12 AM [facility] Total Protein 5.9(L) 6.0 - 8.0 g/dL LAB CHEMISTRY METHOD 02/13/2025 10:12 AM [facility] Albumin 3.1(L) 3.2 - 5.0 g/dL LAB CHEMISTRY METHOD 02/13/2025 10:12 AM [facility] Total Bilirubin 0.4 0.0 - 1.4 mg/dL LAB CHEMISTRY METHOD 02/13/2025 10:12 AM [facility] Blood Venous blood specimen / Unknown Venipuncture / Unknown 02/13/2025 6:49 AM EDT 02/13/2025 8:56 AM EDT us [place] Gross MD LAB BLOOD ORDERABLES Final Resul t [facility] [address] [place] [address], * (ABNORMAL) Complete blood count (02/13/2025 6:49 AM EDT) WBC 3.3(L) 4.8 - 10.8 K/mcL LAB HEMETOLOGY METHOD 02/13/2025 9:07 AM [facility] RBC 2.90(L) 3.80 - 4.80 M/mcL LAB HEMETOLOGY METHOD 02/13/2025 9:07 AM [facility] Hemoglobin 8.4(L) 11.5 - 16.0 g/dL LAB HEMETOLOGY METHOD 02/13/2025 9:07 AM [facility] Hematocrit 27.2(L) 35.0 - 47.0 % LAB HEMETOLOGY METHOD 02/13/2025 9:07 AM [facility] MCV 94.8 79.0 - 98.0 FL LAB HEMETOLOGY METHOD 02/13/2025 9:07 AM [facility] MCH 29.3 27.0 - 32.0 pcg LAB HEMETOLOGY METHOD 02/13/2025 9:07 AM [facility] MCHC 30.9(L) 32.0 - 37.0 g/dL LAB HEMETOLOGY METHOD 02/13/2025 9:07 AM [facility] RDW 14.9 11.0 - 15.0 % LAB HEMETOLOGY METHOD 02/13/2025 9:07 AM [facility] Platelets 132 130 - 400 K/mcL LAB HEMETOLOGY METHOD 02/13/2025 9:07 AM [facility] MPV 11.8(H) 7.0 - 11.0 FL LAB HEMETOLOGY METHOD 02/13/2025 9:07 AM [facility] NRBC 0.0 <1.0 % LAB HEMETOLOGY METHOD 02/13/2025 9:07 AM [facility] NRBC Absolute 0.00 <0.10 K/mcL LAB HEMETOLOGY METHOD 02/13/2025 9:07 AM [facility] Blood Venous blood specimen / Unknown Venipuncture / Unknown 02/13/2025 6:49 AM EDT 02/13/2025 8:56 AM EDT Harris Gross MD LAB BLOOD ORDERABLES Final Resul t [facility] [address] [place] [address], documented in this encounter Visit Diagnoses Diagnosis Vitamin D deficiency, unspecified Gastrointestinal hemorrhage, unspecified Aphagia Anorexia documented in this encounter Care Teams Bed Setter Relationship Specialty Start Date End Date Harris Gross MD [address] [place] [address] [address] [place] [address] PCP - General Geriatric Medicine 02/13/25 documented as of this encounter
[2025-07-26 11:01] LABS: Appearance Urine Clear; Glucose Urine UA Negative (Negative); PH 6.0 (5.0-9.0); Specific Gravity - Urine 1.020 (1.005-1.025); UMIC TRIGGER UACC YES
--- OUTSIDE RECORDS SUMMARY | 2025-08-18 19:00 | XMS_ITS | Clinical Summary ---
Author Organization Unknown Care Team Providers Care Raimann Machine Operator Name Role Phone GA OBRIEN, ABISAI Unavailable Unavailable JACQUELIN ([facility]) SIVAC - PT, LEROY Unavailable Unavailable ROBERT SPECIAL EDUCATION TEACHING ASSISTANT, RACHELLE Unavailable Unavailable [facility] CHAIR SPRINGER, TK Unavailable Mirela KENDRICK PT, NATTY Unavailable Unavailable TOMY RN, TRELL Unavailable Unavailable Payers Payer Name Policy Type Policy Number Effective Date Expira tion Date MEDICARE - [facility] [place] - [id number] Problems Condition Name Condition Details Condition Category Status Onset Date Resolution Date Last Treatment Date Treating Clinician Comments ESSENTIAL (PRIMARY) HYPERTENSION Active 09-04 00:00: 00 HYPERLIPIDEM IA, UNSPECIFIED Active 09-04 00:00: 00 CHRONIC OBSTRUCTIVE PULMONARY DISEASE, UNSPECIFIED Active 09-04 00:00: 00 GASTRO-ESOPH AGEAL REFLUX DISEASE WITHOUT ESOPHAGITIS Active 09-04 00:00: 00 OTHER SPECIFIED ANXIETY DISORDERS Active 09-04 00:00: 00 POLYNEUROPAT HY, UNSPECIFIED Active 09-04 00:00: 00 UNSPECIFIED OSTEOARTHRIT IS, UNSPECIFIED SITE Active 09-04 00:00: 00 Irritable bowel syndrome, unspecified Active 09-04 00:00: 00 VITAMIN D DEFICIENCY, UNSPECIFIED Active 09-04 00:00: 00 UNSPECIFIED MOOD [AFFECTIVE] DISORDER Active 09-04 00:00: 00 OVERACTIVE BLADDER Active 09-04 00:00: 00 PRESENCE OF PROSTHETIC HEART VALVE Active 09-04 00:00: 00 Problems related to health literacy Active 09-04 00:00: 00 OTHER BAG CHECKER (CURRENT) DRUG THERAPY Active 09-04 00:00: 00 BAG CHECKER (CURRENT) USE OF ANTITHROMBOT ICS/ANTIPLAT ELETS Active 09-04 00:00: 00 HISTORY OF FALLING Active 09-04 00:00: 00 CUSTODIAL (CURRENT) USE OF INHALED STEROIDS Active 09-04 00:00: 00 ACQUIRED ABSENCE OF OTHER ORGANS Active 09-04 00:00: 00 PERSONAL HISTORY OF NICOTINE DEPENDENCE Active 09-04 00:00: 00 SOCIAL EXCLUSION AND REJECTION Active 09-04 00:00: 00 PRSNL HX OF TIA (TIA), AND CEREB INFRC W/O RESID DEFICITS Active 09-04 00:00: 00 Allergies, Adverse Reactions, Alerts Allergy Name Allergy Type Status Severity Reaction(s) Onset Date Inactive Date Treating Clinician Comments BUSPIRONE Propensity to adverse reactions Active 2024-09 20:45: 23 CEFUROXIME Propensity to adverse reactions Active 2024-09 20:46: 06 FLAGYL Propensity to adverse reactions Active 2024-09 20:46: 25 GARLIC Propensity to adverse reactions Active 2024-09 20:46: 15 PENICILLAMIN E Propensity to adverse reactions Active 2024-09 20:46: 51 SULFAZINE Propensity to adverse reactions Active 2024-09 20:45: 55 CIPROFLOXACI N ORAL Propensity to adverse reactions Active 2024-09 20:47: 30 LISINOPRIL Propensity to adverse reactions Active 2024-09 20:47: 38 LORATADINE Propensity to adverse reactions Active 2024-09 20:48: 01 NITROFURANTO IN Propensity to adverse reactions Active 2024-09 20:48: 23 Keflex Propensity to adverse reactions Active 2024-09 20:48: 55 METOPROLOL Propensity to adverse reactions Active 2024-09 20:49: 13 SULFACETAMID E Propensity to adverse reactions Active 2024-09 20:50: 17 Medications Ordered Medication Name Filled Medication Name Start Date Stop Date Current Medication? Ordering Clinician Indication Dosage Frequency Signature (SIG) Comments Components pantoprazol e 40 mg tablet,harjit yed release 2024-09 00:00: 00 Yes [id number] 1 tablet 2 TIMES DAILY 1 tablet 2 TIMES DAILY (route: oral) Med Classific ation: Gastroint estinal Therapy Agents citalopram 20 mg tablet 2024-09 0 00:00: 00 Yes [id number] 1 tablet 2 TIMES DAILY 1 tablet 2 TIMES DAILY (route: oral) Med Classific ation: Central Nervous System Agents clopidogrel 75 mg tablet 2024-09 0- 00:00: 00 Yes [id number] 1 tablet DAILY 1 tablet DAILY (route: oral) Med Classific ation: Hematolog ical Agents mirabegron ER 50 mg tablet,exte nded release 24 hr 2024-09 0 00:00: 00 Yes [id number] 1 tablet BEDTIME 1 tablet BEDTIME (route: oral) Med Classific ation: Genitouri nary Therapy Advair HFA 115 mcg-21 mcg/actuati on aerosol inhaler 2024-09 00:00: 00 Yes [id number] 2 puff DAILY 2 puff DAILY (route: inhalation ) Med Classific ation: Respirato ry Therapy Agents albuterol sulfate HFA 90 mcg/actuati on aerosol inhaler 2024-09 00:00: 00 Yes [id number] 2 puff EVERY 6 HOURS 2 puff EVERY 6 HOURS (route: inhalation ) Med Classific ation: Respirato ry Therapy Agents [facility] All[facility] 60 mg tablet 2024-09 00:00: 00 Yes [id number] 1 tablet DAILY 1 tablet DAILY (route: oral) Med Classific ation: Respirato ry Therapy Agents alprazolam 0.25 mg tablet 2024-09 00:00: 00 Yes [id number] 0.125 mg 2 TIMES DAILY 0.125 mg 2 TIMES DAILY (route: oral) Med Classific ation: Central Nervous System Agents cholecalcif angel (vitamin D3) 1,250 mcg (50,000 unit) tablet 2024-09 00:00: 00 Yes [id number] 2 tablet DAILY 2 tablet DAILY (route: oral) Med Classific ation: Electroly te Balance-N utritiona l Products codeine 10 mg-guaifene sin 100 mg/5 mL oral liquid 2024-09 0 00:00: 00 Yes [id number] 10 mg EVERY 6 HOURS 10 mg EVERY 6 HOURS (route: oral) Med Classific ation: Respirato ry Therapy Agents ferrous gluconate 324 mg (38 mg iron) tablet 2024-09 00:00: 00 Yes [id number] 1 tablet 2 TIMES DAILY 1 tablet 2 TIMES DAILY (route: oral) Med Classific ation: Electroly te Balance-N utritiona l Products fluticasone propionate 50 mcg/actuati on nasal spray,suspe nsion 2024-09 00:00: 00 Yes [id number] 1 spray DAILY 1 spray DAILY (route: nasal) Med Classific ation: Respirato ry Therapy Agents Maalox Advanced 200 mg-200 mg-20 mg/5 mL oral suspension 2024-09 00:00: 00 Yes [id number] 30 mL EVERY 6 HOURS 30 mL EVERY 6 HOURS (route: oral) Med Classific ation: Gastroint estinal Therapy Agents polyethylen e glycol 3350 17 gram oral powder packet 2024-09 00:00: 00 Yes [id number] 17 g DAILY 17 g JUAN Y (route: oral) Med Classific ation: Gastroint estinal Therapy Agents simethicone 80 mg chewable tablet 2024-09 00:00: 00 Yes [id number] 1 tablet 3 TIMES DAILY 1 tablet 3 TIMES DAILY (route: oral) Med Classific ation: Gastroint estinal Therapy Agents phenazopyri dine 200 mg tablet 2024-09 00:00: 00 Yes [id number] 1 tablet NEEDED 1 tablet NEEDED (route: oral) Med Classific ation: Genitouri nary Therapy Immunizations Ordered Immunization Name Filled Immunization Name Date Status Comments Refusal Reason COVID-19, COVID-19 2024-06-25 00:00:00 PNEUMOCOCCAL (PPV), PPV 2023-06-20 00:00:00 Vital Signs Vital Name Observation Time Observation Value Commen ts Temperature 2025-07-22 12:15:00.000 98.4 [degF] Temperature 2025-07-15 12:25:00.000 98.9 [degF] Temperature 2025-07-10 15:09:00.000 98.5 [degF] Temperature 2025-07-07 11:49:00.000 98 [degF] Temperature 2025-07-03 18:09:00.000 98.8 [degF] Temperature 2025-07-01 13:37:00.000 98.5 [degF] Temperature 2025-06-30 10:35:00.000 98 [degF] Temperature 2025-06-27 10:02:00.000 98.5 [degF] Temperature 2025-06-24 13:12:00.000 97.4 [degF] Temperature 2025-06-21 11:47:00.000 98.7 [degF] BMI (%) 2025-06-21 11:47:00.000 25 kg/m2 Height 2025-06-21 11:47:00.000 66 [in_us] Pulse 2025-07-22 12:15:00.000 86 /min Pulse 2025-07-15 12:25:00.000 89 /min Pulse 2025-07-10 15:09:00.000 60 /min Pulse 2025-07-07 11:49:00.000 97 /min Pulse 2025-07-03 18:09:00.000 98 /min Pulse 2025-07-01 13:37:00.000 60 /min Pulse 2025-06-30 10:35:00.000 94 /min Pulse 2025-06-27 10:02:00.000 68 /min Pulse 2025-06-24 13:12:00.000 92 /min Pulse 2025-06-21 11:47:00.000 84 /min O2 Saturation (%) 2025-07-22 12:15:00.000 97 % O2 Saturation (%) 2025-07-15 12:25:00.000 93 % O2 Saturation (%) 2025-07-10 15:09:00.000 98 % O2 Saturation (%) 2025-07-07 11:49:00.000 96 % O2 Saturation (%) 2025-07-03 18:09:00.000 96 % O2 Saturation (%) 2025-07-01 13:37:00.000 99 % O2 Saturation (%) 2025-06-30 10:35:00.000 99 % O2 Saturation (%) 2025-06-27 10:02:00.000 98 % O2 Saturation (%) 2025-06-24 13:12:00.000 96 % O2 Saturation (%) 2025-06-21 11:47:00.000 96 % Respirations 2025-07-22 12:15:00.000 18 /min Respirations 2025-07-15 12:25:00.000 20 /min Respirations 2025-07-10 15:09:00.000 16 /min Respirations 2025-07-07 11:49:00.000 20 /min Respirations 2025-07-03 18:09:00.000 18 /min Respirations 2025-07-01 13:37:00.000 16 /min Respirations 2025-06-30 10:35:00.000 20 /min Respirations 2025-06-27 10:02:00.000 16 /min Respirations 2025-06-24 13:12:00.000 20 /min Respirations 2025-06-21 11:47:00.000 20 /min Weight (lbs) 2025-06-21 11:47:00.000 159 [lb_av] Systolic Blood Pressure 2025-07-22 12:15:00.000 106 mm [Hg] Systolic Blood Pressure 2025-07-15 12:25:00.000 136 mm [Hg] Systolic Blood Pressure 2025-07-10 15:09:00.000 102 mm [Hg] Systolic Blood Pressure 2025-07-07 11:49:00.000 140 mm [Hg] Systolic Blood Pressure 2025-07-03 18:09:00.000 134 mm [Hg] Systolic Blood Pressure 2025-07-01 13:37:00.000 130 mm [Hg] Systolic Blood Pressure 2025-06-30 10:35:00.000 118 mm [Hg] Systolic Blood Pressure 2025-06-27 10:02:00.000 126 mm [Hg] Systolic Blood Pressure 2025-06-24 13:12:00.000 158 mm [Hg] Systolic Blood Pressure 2025-06-21 11:47:00.000 112 mm [Hg] Diastolic Blood Pressure 2025-07-22 12:15:00.000 62 mm [Hg] Diastolic Blood Pressure 2025-07-15 12:25:00.000 82 mm [Hg] Diastolic Blood Pressure 2025-07-10 15:09:00.000 62 mm [Hg] Diastolic Blood Pressure 2025-07-07 11:49:00.000 70 mm [Hg] Diastolic Blood Pressure 2025-07-03 18:09:00.000 72 mm [Hg] Diastolic Blood Pressure 2025-07-01 13:37:00.000 70 mm [Hg] Diastolic Blood Pressure 2025-06-30 10:35:00.000 78 mm [Hg] Diastolic Blood Pressure 2025-06-27 10:02:00.000 78 mm [Hg] Diastolic Blood Pressure 2025-06-24 13:12:00.000 88 mm [Hg] Diastolic Blood Pressure 2025-06-21 11:47:00.000 70 mm [Hg] Plan of Treatment Planned Activity Planned Date Details Comments Future Scheduled Test SKILLED NU RSE TO EVALUATE PATIENT, IDENTIFY PRIMARY AND CO-MORBID CONDITIONS CODED PER CODING GUIDELINES, AND DEVELOP PATIENT SPECIFIC PLAN OF CARE THAT INCLUDES PATIENT GOAL FOR HOME HEALTH. [code = SKILLED NURSE TO EVALUATE PATIENT, IDENTIFY PRIMARY AND CO-MORBID CONDITIONS CODED PER CODING GUIDELINES, AND DEVELOP PATIENT SPECIFIC PLAN OF CARE THAT INCLUDES PATIENT GOAL FOR HOME HEALTH.] Future Scheduled Test SKILLED NU RSE TO ASSESS ANXIETY AND PROVIDE ASSISTANCE TO PATIENT FOR UNDERSTANDING AND MANAGEMENT OF FEELINGS. [code = SKILLED NURSE TO ASSESS ANXIETY AND PROVIDE ASSISTANCE TO PATIENT FOR UNDERSTANDING AND MANAGEMENT OF FEELINGS.] Future Scheduled Test SKILLED NU RSE FOR O/A, TEACHING RELATED TO GERD FOR EARLY IDENTIFICATION OF EXACERBATION OF DISEASE PROCESS. [code = SKILLED NURSE FOR O/A, TEACHING RELATED TO GERD FOR EARLY IDENTIFICATION OF EXACERBATION OF DISEASE PROCESS.] Future Scheduled Test SKILLED NU RSE FOR O/A, TEACHING AND MANAGEMENT OF OVERACTIVE BLADDER FOR EARLY IDENTIFICATION OF EXACERBATION OF DISEASE PROCESS [code = SKILLED NURSE FOR O/A, TEACHING AND MANAGEMENT OF OVERACTIVE BLADDER FOR EARLY IDENTIFICATION OF EXACERBATION OF DISEASE PROCESS] Future Scheduled Test MEDICAL SO CIAL WORKER TO EVALUATE PATIENT FOR COMMUNITY RESOURCES [code = FEEDLOT MANAGER TO EVALUATE PATIENT FOR COMMUNITY RESOURCES] Future Scheduled Test SKILLED NU RSE FOR O/A OF RESPIRATORY SYSTEM TO IDENTIFY CHANGES ASSOCIATED WITH EXACERBATION AND TO PROVIDE SKILLED TEACHING ON MANAGEMENT OF BRONCHITIS, CHRONIC COUGH RESPIRATORY DISEASE PROCESS. [code = SKILLED NURSE FOR O/A OF RESPIRATORY SYSTEM TO IDENTIFY CHANGES ASSOCIATED WITH EXACERBATION AND TO PROVIDE SKILLED TEACHING ON MANAGEMENT OF BRONCHITIS, CHRONIC COUGH RESPIRATORY DISEASE PROCESS.] Future Scheduled Test SKILLED NU RSE FOR O/A OF MUSCULOSKELETAL STATUS AND TEACHING ON MEASURES TO MANAGE MUSCULOSKELETAL DISEASE AND TO MAINTAIN SAFETY WITH ACTIVITY [code = SKILLED NURSE FOR O/A OF MUSCULOSKELETAL STATUS AND TEACHING ON MEASURES TO MANAGE MUSCULOSKELETAL DISEASE AND TO MAINTAIN SAFETY WITH ACTIVITY] Future Scheduled Test PHYSICAL T HERAPIST TO EVALUATE PATIENT FOR STRENGTHENING AND ENDURANCE [code = PHYSICAL THERAPIST TO EVALUATE PATIENT FOR STRENGTHENING AND ENDURANCE] Future Scheduled Test SKILLED NU RSE TO PROVIDE TEACHING ON SIGNS AND SYMPTOMS AND MANAGEMENT OF HYPERTENSION. [code = SKILLED NURSE TO PROVIDE TEACHING ON SIGNS AND SYMPTOMS AND MANAGEMENT OF HYPERTENSION.] Future Scheduled Test SKILLED NU RSE TO INSTRUCT PATIENT/CAREGIVER ON COPD TO INCLUDE TEACHING AND SELF-MANAGEMENT RELATED TO COPD DISEASE PROCESS, SIGNS AND SYMPTOMS, AND COMPLICATIONS. [code = SKILLED NURSE TO INSTRUCT PATIENT/CAREGIVER ON COPD TO INCLUDE TEACHING AND SELF-MANAGEMENT RELATED TO COPD DISEASE PROCESS, SIGNS AND SYMPTOMS, AND COMPLICATIONS.] Future Scheduled Test SKILLED NU RSE TO INSTRUCT PATIENT/CAREGIVER ON WARNING SIGNS OF CVA, RISK FACTORS, AND METHODS TO MANAGE BAG CHECKER EFFECTS OF CVA. [code = SKILLED NURSE TO INSTRUCT PATIENT/CAREGIVER ON WARNING SIGNS OF CVA, RISK FACTORS, AND METHODS TO MANAGE BAG CHECKER EFFECTS OF CVA.] Future Scheduled Test SKILLED NU RSE FOR O/A AND SKILLED TEACHING RELATED TO SIGNS AND SYMPTOMS AND MANAGEMENT AND FALL SAFETY [code = SKILLED NURSE FOR O/A AND SKILLED TEACHING RELATED TO SIGNS AND SYMPTOMS AND MANAGEMENT AND FALL SAFETY] Future Scheduled Test PATIENT FUENTES S A RISK OF HOSPITALIZATION AND ED USE. SKILLED NURSE TO ESTABLISH SUPPORT MEASURES TO MINIMIZE RISK OF HOSPITALIZATION AND ED USE, AND INSTRUCT PATIENT/CAREGIVER ON METHODS TO REDUCE AVOIDABLE HOSPITALIZATION AND ED USE. [code = PATIENT HAS A RISK OF HOSPITALIZATION AND ED USE. SKILLED NURSE TO ESTABLISH SUPPORT MEASURES TO MINIMIZE RISK OF HOSPITALIZATION AND ED USE, AND INSTRUCT PATIENT/CAREGIVER ON METHODS TO REDUCE AVOIDABLE HOSPITALIZATION AND ED USE.] Future Scheduled Test SKILLED NU RSE TO PROVIDE INSTRUCTION TO PATIENT/CAREGIVER RELATED TO DISCHARGE PLANNING. [code = SKILLED NURSE TO PROVIDE INSTRUCTION TO PATIENT/CAREGIVER RELATED TO DISCHARGE PLANNING.] Future Scheduled Test SKILLED NU RSE TO PERFORM ENVIRONMENTAL SAFETY RISK ASSESSMENT AND FALL RISK ASSESSMENT AND PROVIDE INSTRUCTION TO IMPLEMENT ENVIRONMENTAL SAFETY AND FALL PREVENTION STRATEGIES THROUGHOUT THE CERTIFICATION PERIOD. SKILLED NURSE WILL MAINTAIN SITUATIONAL AWARENESS AND WILL NOTIFY CLINICAL PATTERN ILLUSTRATOR AND PHYSICIAN/PROVIDER WITH ANY CHANGE IN CONDITION. [code = SKILLED NURSE TO PERFORM ENVIRONMENTAL SAFETY RISK ASSESSMENT AND FALL RISK ASSESSMENT AND PROVIDE INSTRUCTION TO IMPLEMENT ENVIRONMENTAL SAFETY AND FALL PREVENTION STRATEGIES THROUGHOUT THE CERTIFICATION PERIOD. SKILLED NURSE WILL MAINTAIN SITUATIONAL AWARENESS AND WILL NOTIFY CLINICAL PATTERN ILLUSTRATOR AND PHYSICIAN/PROVIDER WITH ANY CHANGE IN CONDITION.] Future Scheduled Test SKILLED NU RSE FOR OBSERVATION AND ASSESSMENT OF PATIENT S PAIN LEVEL AND EFFECTIVENESS OF PAIN MANAGEMENT REGIMEN. SKILLED NURSE TO INSTRUCT PATIENT/CAREGIVER REGARDING PHARMACOLOGIC AND NON-PHARMACOLOGIC PAIN CONTROL MEASURES. SKILLED NURSE TO REPORT TO PHYSICIAN IF PAIN LEVEL IS OUTSIDE OF ESTABLISHED PARAMETERS. [code = SKILLED NURSE FOR OBSERVATION AND ASSESSMENT OF PATIENT S PAIN LEVEL AND EFFECTIVENESS OF PAIN MANAGEMENT REGIMEN. SKILLED NURSE TO INSTRUCT PATIENT/CAREGIVER REGARDING PHARMACOLOGIC AND NON-PHARMACOLOGIC PAIN CONTROL MEASURES. SKILLED NURSE TO REPORT TO PHYSICIAN IF PAIN LEVEL IS OUTSIDE OF ESTABLISHED PARAMETERS.] Future Scheduled Test SKILLED NU RSE TO ASSESS PATIENT'S SKIN INTEGRITY AND INSTRUCT PATIENT/CAREGIVER ON MEASURES TO PREVENT PRESSURE ULCERS. [code = SKILLED NURSE TO ASSESS PATIENT'S SKIN INTEGRITY AND INSTRUCT PATIENT/CAREGIVER ON MEASURES TO PREVENT PRESSURE ULCERS.] Future Scheduled Test SKILLED NU RSE TO PROVIDE ASSESSMENT AND TEACHING/REINFORCEMENT OF MANAGEMENT OF DEPRESSION INCLUDING DISEASE PROCESS, MEDICATION MANAGEMENT, COPING SKILLS AND IDENTIFY CHANGES ASSOCIATED WITH DEPRESSIVE DISORDERS FOR EARLY INTERVENTION. [code = SKILLED NURSE TO PROVIDE ASSESSMENT AND TEACHING/REINFORCEMENT OF MANAGEMENT OF DEPRESSION INCLUDING DISEASE PROCESS, MEDICATION MANAGEMENT, COPING SKILLS AND IDENTIFY CHANGES ASSOCIATED WITH DEPRESSIVE DISORDERS FOR EARLY INTERVENTION.] Future Scheduled Test SKILLED NU RSE TO INSTRUCT PATIENT/CAREGIVER ON S/S OF NEUROPATHY AND METHODS TO MANAGE. [code = SKILLED NURSE TO INSTRUCT PATIENT/CAREGIVER ON S/S OF NEUROPATHY AND METHODS TO MANAGE.] Future Scheduled Test SKILLED NU RSE TO REVIEW PATIENT MEDICATIONS (PRESCRIPTION/OTC). INSTRUCT PATIENT/CAREGIVER ON ALL MEDICATIONS INCLUDING PURPOSE, WHEN TO TAKE, IMPORTANCE OF MEDICATION ADHERENCE, MONITORING OF EFFECTIVENESS, ADVERSE DRUG REACTIONS, POSSIBLE SIDE EFFECTS, AND WHEN TO NOTIFY AGENCY OR PHYSICIAN/PROVIDER OF ANY CONCERNS. [code = SKILLED NURSE TO REVIEW PATIENT MEDICATIONS (PRESCRIPTION/OTC). INSTRUCT PATIENT/CAREGIVER ON ALL MEDICATIONS INCLUDING PURPOSE, WHEN TO TAKE, IMPORTANCE OF MEDICATION ADHERENCE, MONITORING OF EFFECTIVENESS, ADVERSE DRUG REACTIONS, POSSIBLE SIDE EFFECTS, AND WHEN TO NOTIFY AGENCY OR PHYSICIAN/PROVIDER OF ANY CONCERNS.] Future Scheduled Test PHYSICAL T HERAPIST TO EVALUATE PATIENT SECONDARY TO FUNCTIONAL DEFICITS/SAFETY CONCERNS. PHYSICAL THERAPY TO ESTABLISH /UPGRADE/DOWNGRADE THERAPEUTIC EXERCISE PROGRAM AND INSTRUCT PATIENT/CAREGIVER ON EXERCISE PRECAUTIONS WITH WRITTEN HOME PROGRAM. MAY INCLUDE PROM, AAROM, AROM, RROM APPROPRIATE TO IMPROVE FUNCTIONAL STRENGTH AND RANGE OF MOTION. PHYSICAL THERAPY TO INSTRUCT PATIENT/CAREGIVER ON BED MOBILITY TECHNIQUES TO IMPROVE PATIENT MOBILITY AND POSITIONING TECHNIQUES IN ORDER TO INCREASE PATIENT S COMFORT AND DECREASE RISK OF SKIN BREAKDOWN. PHYSICAL THERAPY TO INSTRUCT PATIENT/CAREGIVER ON SAFE TRANSFER TECHNIQUES USING PROPER BODY MECHANICS AND EQUIPMENT. PHYSICAL THERAPY TO INSTRUCT PATIENT/CAREGIVER ON GAIT TRAINING TECHNIQUES USING APPROPRIATE ASSISTIVE DEVICE, PROPER BODY MECHANICS TO IMPROVE MOBILITY, AND PREVENT INJURY OF PATIENT AND/OR CAREGIVER. PHYSICAL THERAPY TO ASSESS AND RECOMMEND HOME SAFETY ADAPTATIONS AND EDUCATE PATIENT /CAREGIVER ON FALL PREVENTION STRATEGIES. PHYSICAL THERAPY FOR OBSERVATION AND ASSESSMENT OF PAIN, EFFECTIVENESS OF PAIN MANAGEMENT REGIMEN AND SKILLED TEACHING RELATED TO PAIN MANAGEMENT. THERAPIST TO REPORT INCREASED PAIN LEVEL TO PHYSICIAN FOR PROMPT INTERVENTION. PHYSICAL THERAPY TO INSTRUCT PATIENT/CAREGIVER ON BALANCE AND BALANCE STRATEGIES TO IMPROVE SAFE MOBILITY AND REDUCE RISK FOR FALL AND INJURY SUMMARY OF THERAPY EVAL/ASSESSMENT FINDINGS AND REASON(S) SKILLS OF A THERAPIST ARE INDICATED: 06/27: PATIENT IS AN 84-YEAR-OLD FEMALE HISTORY OF ORTHOSTATIC HYPOTENSION, SVT, HYPERTENSION, HYPERLIPIDEMIA, RECURRENT FALLS, PRESENTS REFERRAL FOR HOME PT SERVICES FROM PCP OFFICE FOR DECREASING MOBILITY AT HOME. PATIENT IS CURRENTLY UNDERGOING LONG-TERM CARE PLACEMENT WITH SPECIAL EDUCATION TEACHING ASSISTANT ASSISTING. PATIENT HAS HAD 6 FALLS IN THE LAST 3 MONTHS, UNABLE TO TRANSFER OFF OF FLOOR. UNABLE TO ASCERTAIN MECHANISM 2 FALLS PER PATIENT REPORT, NOT RELATED TO DIZZINESS OR KNEE BUCKLING FOR EVERY INSTANCE. PATIENT'S PRIMARY GOAL WITH HOME PT SERVICES TO IMPROVE HER LOWER EXTREMITY STRENGTH AND BALANCE ABLE. SHE REQUIRED CGA X1 TO MIN ASSIST X1 FOR TRANSFERS AND LEVEL SURFACE AMBULATION TODAY SECONDARY TO LOWER EXTREMITY WEAKNESS, IMPAIRED DYNAMIC STANDING BALANCE, AND IMPAIRED ENDURANCE/ACTIVITY TOLERANCE. PATIENT WILL REQUIRE HOME PT SERVICES IN ORDER TO MAXIMIZE CURRENT LEVEL OF FUNCTION AND INDEPENDENCE TO ALLOW PATIENT TO SAFELY ACCESS AND NAVIGATE HER HOME ENVIRONMENT WITH DECREASE RISK FOR FALLS AND POTENTIAL INJURY/REHOSPITALIZATION. SHE IS AT ELEVATED RISK GIVEN CURRENT TUG SCORE GREATER THAN 30 SECONDS PARTICULARLY IN COMBINATION WITH LOWER EXTREMITY WEAKNESS EVIDENCED BY 30 SECOND [id number] SCORE LESS THAN 6. WILL PLAN FOR PT PLAN OF CARE 1 TIME A WEEK UNTIL END OF EPISODE X8 WEEKS. VERBAL ORDER RECEIVED FROM DONTA AT MD OFFICE FOR PT PLAN OF CARE THERAPIST TO REVIEW PATIENT MEDICATIONS (PRESCRIPTION/OTC). INSTRUCT PATIENT/CAREGIVER ON ALL MEDICATIONS INCLUDING PURPOSE, WHEN TO TAKE, IMPORTANCE OF MEDICATION ADHERENCE, MONITORING OF EFFECTIVENESS, ADVERSE DRUG EVENTS, POSSIBLE SIDE EFFECTS, AND WHEN TO NOTIFY AGENCY OR PHYSICIAN/PROVIDER OF ANY CONCERNS. THERAPIST TO PROVIDE FUNCTIONAL STRATEGIES/TECHNIQUES FOR MANAGING MEDICATIONS. [code = PHYSICAL THERAPIST TO EVALUATE PATIENT SECONDARY TO FUNCTIONAL DEFICITS/SAFETY CONCERNS. PHYSICAL THERAPY TO ESTABLISH /UPGRADE/DOWNGRADE THERAPEUTIC EXERCISE PROGRAM AND INSTRUCT PATIENT/CAREGIVER ON EXERCISE PRECAUTIONS WITH WRITTEN HOME PROGRAM. MAY INCLUDE PROM, AAROM, AROM, RROM APPROPRIATE TO IMPROVE FUNCTIONAL STRENGTH AND RANGE OF MOTION. PHYSICAL THERAPY TO INSTRUCT PATIENT/CAREGIVER ON BED MOBILITY TECHNIQUES TO IMPROVE PATIENT MOBILITY AND POSITIONING TECHNIQUES IN ORDER TO INCREASE PATIENT S COMFORT AND DECREASE RISK OF SKIN BREAKDOWN. PHYSICAL THERAPY TO INSTRUCT PATIENT/CAREGIVER ON SAFE TRANSFER TECHNIQUES USING PROPER BODY MECHANICS AND EQUIPMENT. PHYSICAL THERAPY TO INSTRUCT PATIENT/CAREGIVER ON GAIT TRAINING TECHNIQUES USING APPROPRIATE ASSISTIVE DEVICE, PROPER BODY MECHANICS TO IMPROVE MOBILITY, AND PREVENT INJURY OF PATIENT AND/OR CAREGIVER. PHYSICAL THERAPY TO ASSESS AND RECOMMEND HOME SAFETY ADAPTATIONS AND EDUCATE PATIENT /CAREGIVER ON FALL PREVENTION STRATEGIES. PHYSICAL THERAPY FOR OBSERVATION AND ASSESSMENT OF PAIN, EFFECTIVENESS OF PAIN MANAGEMENT REGIMEN AND SKILLED TEACHING RELATED TO PAIN MANAGEMENT. THERAPIST TO REPORT INCREASED PAIN LEVEL TO PHYSICIAN FOR PROMPT INTERVENTION. PHYSICAL THERAPY TO INSTRUCT PATIENT/CAREGIVER ON BALANCE AND BALANCE STRATEGIES TO IMPROVE SAFE MOBILITY AND REDUCE RISK FOR FALL AND INJURY SUMMARY OF THERAPY EVAL/ASSESSMENT FINDINGS AND REASON(S) SKILLS OF A THERAPIST ARE INDICATED: 06/27: PATIENT IS AN 84-YEAR-OLD FEMALE HISTORY OF ORTHOSTATIC HYPOTENSION, SVT, HYPERTENSION, HYPERLIPIDEMIA, RECURRENT FALLS, PRESENTS REFERRAL FOR HOME PT SERVICES FROM PCP OFFICE FOR DECREASING MOBILITY AT HOME. PATIENT IS CURRENTLY UNDERGOING LONG-TERM CARE PLACEMENT WITH SPECIAL EDUCATION TEACHING ASSISTANT ASSISTING. PATIENT HAS HAD 6 FALLS IN THE LAST 3 MONTHS, UNABLE TO TRANSFER OFF OF FLOOR. UNABLE TO ASCERTAIN MECHANISM 2 FALLS PER PATIENT REPORT, NOT RELATED TO DIZZINESS OR KNEE BUCKLING FOR EVERY INSTANCE. PATIENT'S PRIMARY GOAL WITH HOME PT SERVICES TO IMPROVE HER LOWER EXTREMITY STRENGTH AND BALANCE ABLE. SHE REQUIRED CGA X1 TO MIN ASSIST X1 FOR TRANSFERS AND LEVEL SURFACE AMBULATION TODAY SECONDARY TO LOWER EXTREMITY WEAKNESS, IMPAIRED DYNAMIC STANDING BALANCE, AND IMPAIRED ENDURANCE/ACTIVITY TOLERANCE. PATIENT WILL REQUIRE HOME PT SERVICES IN ORDER TO MAXIMIZE CURRENT LEVEL OF FUNCTION AND INDEPENDENCE TO ALLOW PATIENT TO SAFELY ACCESS AND NAVIGATE HER HOME ENVIRONMENT WITH DECREASE RISK FOR FALLS AND POTENTIAL INJURY/REHOSPITALIZATION. SHE IS AT ELEVATED RISK GIVEN CURRENT TUG SCORE GREATER THAN 30 SECONDS PARTICULARLY IN COMBINATION WITH LOWER EXTREMITY WEAKNESS EVIDENCED BY 30 SECOND [id number] SCORE LESS THAN 6. WILL PLAN FOR PT PLAN OF CARE 1 TIME A WEEK UNTIL END OF EPISODE X8 WEEKS. VERBAL ORDER RECEIVED FROM DONTA AT MD OFFICE FOR PT PLAN OF CARE THERAPIST TO REVIEW PATIENT MEDICATIONS (PRESCRIPTION/OTC). INSTRUCT PATIENT/CAREGIVER ON ALL MEDICATIONS INCLUDING PURPOSE, WHEN TO TAKE, IMPORTANCE OF MEDICATION ADHERENCE, MONITORING OF EFFECTIVENESS, ADVERSE DRUG EVENTS, POSSIBLE SIDE EFFECTS, AND WHEN TO NOTIFY AGENCY OR PHYSICIAN/PROVIDER OF ANY CONCERNS. THERAPIST TO PROVIDE FUNCTIONAL STRATEGIES/TECHNIQUES FOR MANAGING MEDICATIONS.] Future Scheduled Test MEDICAL SO CIAL WORKER EVALUATION PERFORMED. NO ADDITIONAL VISITS REQUIRED. [code = [id number] MANAGER EVALUATION PERFORMED. NO ADDITIONAL VISITS REQUIRED.] Goal Patient Goal - TO GET BETTER Goal Provider Goal - A PLAN OF CARE WILL BE ESTABLISHED THAT MEETS PATIENT'S PRISON NEEDS AND INCLUDES PATIENT GOAL FOR HOME HEALTH. Goal Provider Goal - SYMPTOMS OF ANXIETY ARE IDENTIFIED AND INTERVENTIONS INITIATED TO ENABLE PATIENT TO UNDERSTAND AND MANAGE FEELINGS THROUGHOUT EPISODE. Goal Provider Goal - EXACERBATIONS OF GASTROINTESTINAL DISEASE WILL BE PROMPTLY IDENTIFIED AND INTERVENTIONS IMPLEMENTED TO MINIMIZE RISKS TO PATIENT BY END OF EPISODE. Goal Provider Goal - PATIENT/CAREGIVER WILL VERBALIZE UNDERSTANDING OF GENITOURINARY DISEASE PROCESS, AND EXACERBATIONS OF GENITOURINARY DISEASE WILL BE PROMPTLY IDENTIFIED FOR EARLY INTERVENTION THROUGHOUT THE CERTIFICATION PERIOD. Goal Provider Goal - FEEDLOT MANAGER TO COMPLETE EVALUATION TO ADDRESS THE PATIENT S SOCIAL AND EMOTIONAL FACTORS AND/OR WRITTEN PLAN OF TREATMENT ESTABLISHED FOR THE PHYSICIAN'S SIGNATURE. Goal Provider Goal - PATIENT/CAREGIVER WILL VERBALIZE/DEMONSTRATE MANAGEMENT OF RESPIRATORY DISEASE PROCESS. CHANGES IN RESPIRATORY STATUS WILL BE IDENTIFIED AND REPORTED TO PHYSICIAN FOR PROMPT INTERVENTION THROUGHOUT THE CERTIFICATION PERIOD. Goal Provider Goal - PATIENT/CAREGIVER WILL VERBALIZE/DEMONSTRATE ABILITY TO MANAGE MUSCULOSKELETAL DISEASE WHILE MAINTAINING SAFETY THROUGHOUT THE EPISODE. Goal Provider Goal - A PHYSICAL THERAPY EVALUATION TO BE COMPLETED WITH RECOMMENDATIONS AND/OR WRITTEN PLAN OF TREATMENT ESTABLISHED FOR PHYSICIAN S SIGNATURE. Goal Provider Goal - PATIENT/CAREGIVER WILL VERBALIZE SIGNS AND SYMPTOMS OF HYPERTENSION AND WILL BE ABLE TO DEMONSTRATE ABILITY TO MANAGE EXACERBATION BY END OF THE EPISODE. Goal Provider Goal - PATIENT/CAREGIVER WILL VERBALIZE/DEMONSTRATE KNOWLEDGE AND MANAGEMENT OF COPD BY END OF EPISODE. Goal Provider Goal - PATIENT/CAREGIVER WILL DEMONSTRATE COMPLIANCE WITH TREATMENT REGIME AND VERBALIZE SIGNS AND SYMPTOMS TO REPORT WELL POSSIBLE COMPLICATIONS OF CVA BY END OF EPISODE. Goal Provider Goal - PATIENT/CAREGIVER WILL VERBALIZE UNDERSTANDING OF MUSCULOSKELETAL DISEASE INCLUDING SIGNS AND SYMPTOMS, MANAGEMENT, AND PRESCRIBED TREATMENT REGIMEN BY END OF EPISODE. Goal Provider Goal - PATIENT WILL HAVE SUPPORT MEASURES ESTABLISHED TO PREVENT HOSPITALIZATION AND ED USE AND PATIENT/CAREGIVER WILL VERBALIZE/DEMONSTRATE METHODS TO REDUCE AVOIDABLE HOSPITALIZATION AND ED USE BY END OF EPISODE. Goal Provider Goal - PATIENT/CAREGIVER WILL VERBALIZE UNDERSTANDING OF DISCHARGE PLANNING INSTRUCTIONS BY DATE OF DISCHARGE. Goal Provider Goal - PATIENT/CAREGIVER WILL VERBALIZE/DEMONSTRATE EFFECTIVE ENVIRONMENTAL SAFETY AND FALL PREVENTION STRATEGIES, WILL REMAIN SAFE IN THE COMMUNITY, AND WILL BE FREE OF DANGER TO SELF AND OTHERS THROUGHOUT THE CERTIFICATION PERIOD. Goal Provider Goal - PATIENT/CAREGIVER WILL DEMONSTRATE UNDERSTANDING OF PHARMACOLOGIC AND NONPHARMACOLOGIC PAIN CONTROL MEASURES AND PATIENT WILL HAVE IMPROVEMENT IN PAIN INTERFERING WITH ACTIVITY EVIDENCED BY PAIN AT A LEVEL THAT IS ACCEPTABLE TO THE PATIENT AND PAIN LEVEL WITHIN ESTABLISHED PARAMETERS BY END OF CERTIFICATION PERIOD. Goal Provider Goal - PATIENT/CAREGIVER WILL VERBALIZE UNDERSTANDING OF PRESSURE ULCER PREVENTION BY END OF THE EPISODE. Goal Provider Goal - PATIENT/CAREGIVER WILL VERBALIZE/DEMONSTRATE UNDERSTANDING OF THE MANAGEMENT OF DEPRESSION THROUGHOUT THE CERTIFICATION PERIOD AND SYMPTOMS ARE IDENTIFIED AND MANAGED TO MAINTAIN PATIENT SAFETY IN THE HOME. Goal Provider Goal - PATIENT/CAREGIVER WILL VERBALIZE S/S OF NEUROPATHY AND METHODS TO MANAGE BY END OF CERTIFICATION PERIOD. Goal Provider Goal - PATIENT/CAREGIVER WILL VERBALIZE UNDERSTANDING OF EDUCATION PROVIDED ON MEDICATIONS BY THE END OF THE CERTIFICATION PERIOD. Goal Provider Goal - PHYSICAL THERAPY EVALUATION TO BE COMPLETED WITH RECOMMENDATIONS AND/OR WRITTEN TREATMENT PLAN OF CARE ESTABLISHED FOR THE PHYSICIAN S SIGNATURE PATIENT/CAREGIVER WILL PERFORM THERAPEUTIC EXERCISE/S AND DEMONSTRATE PARTICIPATION IN A HOME PROGRAM. PATIENT/CAREGIVER WILL DEMONSTRATE IMPROVED BED MOBILITY TECHNIQUES. PATIENT/CAREGIVER WILL DEMONSTRATE SAFE TRANSFERS USING APPROPRIATE ASSISTIVE DEVICE, BODY MECHANICS AND EQUIPMENT. PATIENT/CAREGIVER WILL DEMONSTRATE IMPROVED GAIT TECHNIQUES TO MINIMIZE RISK OF INJURY. PATIENT/CAREGIVER WILL DEMONSTRATE/VERBALIZE UNDERSTANDING OF RECOMMENDATIONS TO INCREASE SAFETY IN THE HOME AND FALL PREVENTION. INCREASED PAIN OR INEFFECTIVE PAIN CONTROL MEASURES WILL BE IDENTIFIED AND PROMPTLY REPORTED TO THE PHYSICIAN. PATIENT/CAREGIVER WILL DEMONSTRATE EFFECTIVE PAIN MANAGEMENT. PATIENT/CAREGIVER WILL DEMONSTRATE IMPROVED BALANCE AND REDUCE THE RISK OF FALLS AND INJURY. PATIENT/CAREGIVER WILL VERBALIZE/DEMONSTRATE UNDERSTANDING OF MEDICATIONS AND STRATEGIES/TECHNIQUES FOR MEDICATION MANAGEMENT BY THE END OF THE CERTIFICATION PERIOD. Goal Provider Goal - NONE Encounters Start Date/Time End Date/Time Encounter Type Admission Type Attending [facility] Care Facility Care Department Encounter ID Discharge Date Discharge Status Discharge Condition Discharge Reason Percent Goals Met 2025-06-21 00:00:00 2025-08-19 00:00:00 Outpatient NEW ADMISSION TRELL HUITRON [facility] [id number] 24.53
== END 2025-07-26 10:19 | disposition home or self-care (01) ==
LOC: HO.XRAY 10:18
PROVIDERS: PCP Student in an Organized Health Care Education/Training Program; Visit Provider Student in an Organized Health Care Education/Training Program
DX: R10.30 Lower abdominal pain, unspecified (principal)
CPT/HCPCS: 74018; 81001; 81003

== ENCOUNTER 2025-07-29 09:02 | Outpatient (REF) | payer MEDICARE, OTHER, SELFPAY ==
--- NOTE | ~2025-07-29 | XR_ITS ---
EXAMINATION: XR WRIST, RIGHT CLINICAL INFORMATION: M79.641 - Pain in right hand COMPARISON: None available. TECHNIQUE: 4 views of the right wrist. FINDINGS: There may be an old healed fracture of the radial styloid. No acute fracture or dislocation. There is dorsal tilt of the lunate seen on the lateral view. Scapholunate is distance does not appear widened on other views. There is severe arthritis at the visualized IP joints. There is moderate arthritis with joint space narrowing and osteophyte formation at the first MCP, first CUSTODIAL and trapezoid trapezium scaphoid joints. There is diffuse osteopenia. There is atherosclerotic disease. XR/XR wrist RT w scaphoid IMPRESSION: Osteopenia and arthritis. Dorsal tilt of the lunate on the lateral view. No scapholunate distance widening appreciated on other views. Probable old fracture of the radial styloid. Electronically signed by: Danii Everett MD 07/29/2025 09:46 AM [facility]
== END 2025-07-29 09:03 | disposition home or self-care (01) ==
LOC: HO.HOSX 09:02
PROVIDERS: PCP Internal Medicine
DX: M79.641 Pain in right hand (principal); S52.501D Unspecified fracture of the lower end of right radius, subsequent encounter for closed fracture with routine healing; X58.XXXD Exposure to other specified factors, subsequent encounter
CPT/HCPCS: 73110; 99212

== ENCOUNTER 2025-07-29 09:02 | Outpatient (AMB) | payer MEDICARE, OTHER, SELFPAY ==
[2025-07-29 09:08] VITALS: BMI 29.2
--- NOTE | 2025-07-29 09:08 | A.OFFVIS_ITS ---
Vital Signs 07/29/25 09:08 Height 5 ft 3 in Weight 165 lb BMI 29.2 Intake Visit Reasons: OV: Right Distal Radius Fx 11/22/24 Intake Note: Bella is an 84 year old right hand dominant female who presents today for follow up status post Right distal radius fracture, DOI 11/22/24. She was last seen on 03/12/25. At that time she was notified she could discontinue her Velcro wrist brace but should continue attending Occupational Therapy. Today, patient complains of achiness on the dorsal and volar aspect of the wrist and forearm. She denies any new injuries, numbness, tingling, or finger locking. She is taking Tylenol PRN with some relief. Allergies buspirone Allergy (Intermediate, Verified 07/29/25 09:11) Rash Sulfa (Sulfonamide Antibiotics) Allergy (Intermediate, Verified 07/29/25 09:11) RASH cefuroxime Allergy (Unknown, Verified 07/29/25 09:11) Unknown garlic (GARLIC) Allergy (Unknown, Verified 07/29/25 09:11) PER H&P metronidazole (From FLAGYL) Allergy (Unknown, Verified 07/29/25 09:11) OCULAR MIGRAINES penicillamine Allergy (Unknown, Verified 07/29/25 09:11) Unknown ciprofloxacin Adverse Reaction (Intermediate, Verified 07/29/25 09:11) neuropathic pain lisinopril Adverse Reaction (Intermediate, Verified 07/29/25 09:11) Cough loratadine (From Claritin) Adverse Reaction (Mild, Verified 07/29/25 09:11) Fatigued nitrofurantoin Adverse Reaction (Mild, Verified 07/29/25 09:11) GI side effects cefuroxime Allergy (Intermediate, Uncoded 07/29/25 09:11) wheezy cough/itch flagyl Allergy (Unknown, Uncoded 07/29/25 09:11) Unknown From KEFLEX Allergy (Unknown, Uncoded 07/29/25 09:11) RASH Metoprolol Tartrate Allergy (Unknown, Uncoded 07/29/25 09:11) Unknown Sulfacet-R Allergy (Unknown, Uncoded 07/29/25 09:11) Unknown HPI HPI OV: Right Distal Radius Fx 11/22/24: Details: Bella is an 84 year old right hand dominant female who presents today for follow up status post Right distal radius fracture, DOI 11/22/24. She was last seen on 03/12/25. At that time she was notified she could discontinue her Velcro wrist brace but should continue attending Occupational Therapy. Today, patient complains of achiness on the dorsal and volar aspect of the wrist and forearm. She denies any new injuries, numbness, tingling, or finger locking. She is taking Tylenol PRN with some relief. Of note, the patient does walk with a cane in the right hand, and this cane bent recently. [facility] Medical History Mood disorder Severe aortic stenosis Dizziness Nonspecific low blood pressure reading Annual wellness visit Acute diverticulitis LLQ abdominal pain Contusion of right lower leg Otitis media Cough Bronchitis Pelvic pain Chronic cough Elevated IgE level Status post fall Hip pain Post-menopausal URI (upper respiratory infection) Sensation of pressure in bladder area Chest pain Elevated blood sugar Oral candidiasis GERD (gastroesophageal reflux disease) Pulmonary nodule HTN (hypertension) Heart palpitations Constipation Breast cancer screening Breast pain, left Elevated vitamin B12 level Neck muscle spasm Strain of neck muscle Low back pain Pubic ramus fracture Sore throat Skin tear of upper arm without complication Head injury, acute, without loss of consciousness Fall Medication noncompliance due to cognitive impairment RLQ abdominal pain Sinusitis Flu syndrome Precordial chest pain Atypical chest pain Cold intolerance Former smoker Abnormal lung sounds Fever Bilateral calf pain Nausea Left lower quadrant abdominal pain Dysuria Fatigue Lower extremity weakness Aortic stenosis Obstipation Dark stools Lower abdominal pain Gastroenteritis Neck pain on right side Back pain Rhinitis Elevated BP without diagnosis of hypertension Non-rheumatic aortic stenosis Diverticulitis GERD (gastroesophageal reflux disease) Cat scratch Cat bite Epigastric discomfort Diarrhea Neuropathy Arthritis GERD (gastroesophageal reflux disease) HTN (hypertension) Irritable bowel Heart murmur Surgical History S/P AVR S/P TAVR (transcatheter aortic valve replacement) Hx of esophagogastroduodenoscopy Hx of colonoscopy History of tonsillectomy History of appendectomy Family History Father No problems noted. Mother No problems noted. Social History Household Members: Children Housing: House Are you a primary personal care assistant to a significant other at home: No Do you presently have visiting nurse or other home services: Yes Alcohol intake: never Comment: Pt still ambulate on her own even though alarms are on Patient Tobacco Use Status: Former Tobacco user Tobacco use type: Cigarette Years Smoked: 55 e-Cigarette/Vaping Use: Never Used Second Hand Smoke Exposure: No Advance Directives Date on File: 09/21/23 service: No Current occupational status: retired Cognitive needs: No Hearing needs: No Vision needs: Yes (glasses) Review of Systems Const All systems reviewed & are unremarkable except as noted in HPI and below Physical Exam Vital Signs: BMI result Body Mass Index 29.2 Extrem Other: Patient is alert, oriented, and in no acute distress. Neuro: Normal sensation of the tips of all digits of the right hand at this time Vascular: Cap refill brisk Pain: Very minimal tenderness to palpation noted about the distal radius of the right wrist No pain with range of motion of the hand ROM: Patient is able to make a closed fist and extend all digits of the right hand fully Skin: No lacerations or abrasions. General: No ecchymosis, erythema, or evidence of infection. Psych: Appears grossly normal Affect normal Attitude cooperative Results Reviewed Results Reviewed: X-rays obtained in the office today and independently reviewed by me, Sumit Pollock PA-C, demonstrate well healed fracture of right distal radius. Assessment & Plan Assessment & Plan (1) Fracture of right distal radius: Comment: November 2024 Code(s): S52.501A - Unspecified fracture of the lower end of right radius, initial encounter for closed fracture Category: Medical Plan 1. Minimally displaced fracture of right distal radius Date of injury 11/22/2024 Patient is educated about this condition Patient was educated about the typical treatment course Patient is educated that she can discontinue use of the Velcro wrist splint at this time Patient is educated she should continue working with occupational therapy to work on range of motion of her right wrist, as she is at rehab and has been working with therapy. Patient is advised she should get a new cane, as I feel the bent cane is likely putting significant stress on the right wrist and could be what is causing her discomfort Patient states understanding of this and are amenable to this plan Patient will follow-up as needed with any acute concerns Orders: Orders XR wrist RT w scaphoid Today M79.641 - Pain in right hand Coding Level of Care Code Est Pt Level 3 (71467) Diagnoses Fracture of right distal radius S52.501A
--- OUTSIDE RECORDS SUMMARY | 2025-07-29 09:46 | XMS_ITS | Encounter Summary ---
Author Organization [facility] Address [address] [place] [address] Care Team Providers Care Public Works Laborer Name Role Phone Harris Gross MD Primary Care Provider [phone] Encounter Details Date Type Department Care Team (Late st Contact Info) Description 05/30/2025 Lab Requisition [facility] - Main Lab [address] [facility] [place] [address] Harris Gross MD [address] [place], [place] [id number] Essential (primary) hypertension; Chronic obstructive pulmonary disease, [...] Final Resul t [facility] [address] [place] [address], * (ABNORMAL) Complete blood count (06/02/2025 4:54 AM EDT) WBC 3.1(L) 4.8 - 10.8 K/mcL LAB HEMETOLOGY METHOD 06/02/2025 1:02 PM EDT [facility] RBC 2.70(L) 3.80 - 4.80 M/mcL LAB HEMETOLOGY METHOD 06/02/2025 1:02 PM EDT [facility] Hemoglobin 7.8(L) 11.5 - 16.0 g/dL LAB HEMETOLOGY METHOD [facility] Hematocrit 25.7(L) 35.0 - 47.0 % LAB HEMETOLOGY METHOD 06/02[facility]2025 [facility] MCV 95.9 79.0 - 98.0 FL LAB HEMETOLOGY METHOD 06/02/2025 1:02 PM EDT [facility] MCH 29.1 27.0 - 32.0 pcg LAB HEMETOLOGY METHOD 06/02/2025 1:02 PM [facility] MCHC 30.4(L) 32.0 - 37.0 g/dL LAB HEMETOLOGY METHOD 06/02/2025 1:02 PM EDT [facility] RDW 17.8(H) 11.0 - 15.0 % LAB HEMETOLOGY METHOD 06/02/2025 1:02 PM EDT [facility] Platelets 109(L) 130 - 400 K/mcL LAB HEMETOLOGY METHOD [facility]/02[facility]2025 [facility] MPV 12.3(H) 7.0 - 11.0 FL LAB HEMETOLOGY METHOD 06/02/2025 1:02 PM EDT [facility] NRBC 0.0 <1.0 % LAB HEMETOLOGY METHOD 06/02/2025 1:02 PM EDT [facility] NRBC Absolute 0.00 <0.10 K/mcL LAB HEMETOLOGY METHOD 06/02/2025 1:02 PM EDT [facility] Blood Venous blood specimen / Unknown Venipuncture / Unknown 06/02/2025 4:54 AM EDT 06/02/2025 10:56 AM EDT us [place] Gross MD LAB BLOOD ORDERABLES Final Resul t [facility] [address] [place] [address], documented in this encounter Visit Diagnoses Diagnosis Essential (primary) hypertension Unspecified essential hypertension Chronic obstructive pulmonary disease, unspecified (CMS/HCC V24, CMS/HCC V28) documented in this encounter Care Teams Public Works Laborer Relationship Specialty Start Date End Date Harris Gross MD [address] [place] [address] [address] [place] [address] PCP - General Geriatric Medicine 02/13/25 documented as of this encounter
--- OUTSIDE RECORDS SUMMARY | 2025-07-29 09:46 | XMS_ITS | Encounter Summary ---
Author Organization [facility] Address [address] [place] [address] Care Team Providers Care Leasing Machine Tender Name Role Phone Harris Gross MD Primary Care Provider [phone] Encounter Details Date Type Department Care Team (Late st Contact Info) Description 06/21/2025 Lab Requisition [facility] - Main Lab [address] [facility] [place] [address] Harris Gross MD [address] [facility] [address] [place] [address] Essential (primary) hypertension; Chronic obstructive pulmonary disease, [...] V28) documented in this encounter Care Teams Leasing Machine Tender Relationship Specialty Start Date End Date Harris Gross MD [address] [facility] [address] [place], [place] [id number] PCP - General Geriatric Medicine 02/13/25 documented as of this encounter
--- OUTSIDE RECORDS SUMMARY | 2025-07-29 09:46 | XMS_ITS | Encounter Summary ---
Author Organization [facility] Address [address] [place] [address] Care Team Providers Care Data Collector Name Role Phone Harris Gross MD Primary Care Provider [phone] Encounter Details Date Type Department Care Team (Late st Contact Info) Description 05/25/2025 Lab Requisition [facility] - Main Lab 299 [facility] [place] [address] Harris Gross MD [address] [place], [place] [id number] Essential (primary) hypertension; Chronic obstructive pulmonary disease, [...] LAB CHEMISTRY METHOD 05/26/2025 12:57 PM EDT [facility] Blood Venous blood specimen / Unknown Venipuncture / Unknown 05/26/2025 4:52 AM EDT 05/26/2025 10:18 AM EDT us Harris Gross MD LAB BLOOD ORDERABLES Final Resul t [facility] [address] [place] [address], * Iron and TIBC (05/26/2025 4:52 AM EDT) Iron 88 40 - 150 mcg/dL LAB CHEMISTRY METHOD 05/26/2025 12:56 PM EDT [facility] TIBC 358 250 - 450 mcg/dL LAB CHEMISTRY METHOD 05/26/2025 12:56 PM EDT [facility] Iron Saturation 25 15 - 50 % LAB CHEMISTRY METHOD 05/26/2025 12:56 PM EDT [facility] Blood Venous blood specimen / Unknown Venipuncture / Unknown 05/26/2025 4:52 AM EDT 05/26/2025 10:18 AM EDT us Harris Gross MD LAB BLOOD ORDERABLES Final Resul t [facility] [address] [place] [address], * (ABNORMAL) Basic metabolic panel (05/26/2025 4:52 AM EDT) Sodium 141 133 - 145 mmol/L LAB CHEMISTRY METHOD 05/26/2025 12:56 PM EDT [facility] Potassium 4.8 3.5 - 5.5 mmol/L LAB CHEMISTRY METHOD 05/26/2025 12:56 PM [facility] Chloride 108 96 - 110 mmol/L LAB CHEMISTRY METHOD 05/26/2025 12:56 PM [facility] CO2 30 21 - 32 mmol/L LAB CHEMISTRY METHOD 05/26/2025 12:56 PM [facility] Anion Gap 3 3 - 11 LAB CHEMISTRY METHOD 05/26/2025 12:56 PM [facility] Glucose 75 70 - 100 mg/dL LAB CHEMISTRY METHOD 05/26/2025 12:56 PM [facility] BUN 21 5 - 25 mg/dL LAB CHEMISTRY METHOD 05/26/2025 12:56 PM [facility] Creatinine 0.98 0.50 - 1.10 mg/dL LAB CHEMISTRY METHOD 05/26/2025 12:56 PM [facility] LAB eGFR 57(L) >=60 mL/min/1. 73m2 LAB CHEMISTRY METHOD 05/26/2025 12:56 PM [facility] LAB Comment:Calculation based on the Chronic Kidney Disease Epidemiology Collaboration (CKD-EPI) equation refit without adjustment for race. BUN/Creatinine Ratio 21.4 LAB CHEMISTRY METHOD 05/26/2025 12:56 PM [facility] Calcium 9.1 8.5 - 10.5 mg/dL LAB CHEMISTRY METHOD 05/26/2025 12:56 PM EDT [facility] Blood Venous blood specimen / Unknown Venipuncture / Unknown 05/26/2025 4:52 AM EDT 05/26/2025 10:18 AM EDT us Harris Gross MD LAB BLOOD ORDERABLES Final Resul t [facility] [address] [place] [address], * (ABNORMAL) Complete blood count (05/26/2025 4:52 AM EDT) WBC 3.5(L) 4.8 - 10.8 K/mcL LAB HEMETOLOGY METHOD 05/26/2025 12:53 PM EDT [facility] RBC 2.70(L) 3.80 - 4.80 M/mcL LAB HEMETOLOGY METHOD 05/26/2025 12:53 PM EDT [facility] Hemoglobin 7.5(L) 11.5 - 16.0 g/dL LAB HEMETOLOGY METHOD 05/26/2025 12:53 PM EDT [facility] Hematocrit 25.0(L) 35.0 - 47.0 % LAB HEMETOLOGY METHOD 05/26/2025 12:53 PM EDT [facility] MCV 92.3 79.0 - 98.0 FL LAB HEMETOLOGY METHOD 05/26/2025 12:53 PM EDT [facility] MCH 27.7 27.0 - 32.0 pcg LAB HEMETOLOGY METHOD 05/26/2025 12:53 PM EDT [facility] MCHC 30.0(L) 32.0 - 37.0 g/dL LAB HEMETOLOGY METHOD 05/26/2025 12:53 PM EDT [facility] RDW 15.2(H) 11.0 - 15.0 % LAB HEMETOLOGY METHOD 05/26/2025 12:53 PM EDT [facility] Platelets 156 130 - 400 K/mcL LAB HEMETOLOGY METHOD 05/26/2025 12:53 PM EDT [facility] MPV 12.4(H) 7.0 - 11.0 FL LAB HEMETOLOGY METHOD 05/26/2025 12:53 PM EDT [facility] NRBC 0.0 <1.0 % LAB HEMETOLOGY METHOD 05/26/2025 12:53 PM EDT [facility] LAB NRBC Absolute 0.00 <0.10 K/mcL LAB [facility] METHOD 05/26/2025 12:53 PM EDT [facility] Blood Venous blood specimen / Unknown Venipuncture / Unknown 05/26/2025 4:52 AM EDT 05/26/2025 10:18 AM EDT Harris Gross MD LAB BLOOD ORDERABLES Final Resul t [facility] [address] [place] [address], documented in this encounter Visit Diagnoses Diagnosis Essential (primary) hypertension Unspecified essential hypertension Chronic obstructive pulmonary disease, unspecified (CMS/HCC V24, CMS/HCC V28) Gastro-esophageal reflux disease without esophagitis Anemia, unspecified documented in this encounter Care Teams Data Collector Relationship Specialty Start Date End Date Harris Gross MD [address] [place] [address] [address] [place] [address] PCP - General Geriatric Medicine 02/13/25 documented as of this encounter
--- OUTSIDE RECORDS SUMMARY | 2025-07-29 09:46 | XMS_ITS | Encounter Summary ---
Author Organization [facility] Address [address] [place] [address] Care Team Providers Care Swiss Machinist Name Role Phone Harris Gross MD Primary Care Provider [phone] Encounter Details Date Type Department Care Team (Late st Contact Info) Description 05/22/[address] [facility] - Main Lab 299 [facility] [place] [address] Harris Gross MD [address] [place], [place] [phone] Essential (primary) hypertension; Anemia, unspecified Social History [...] CHEMISTRY METHOD 05/22/2025 10:28 AM EDT [facility] Potassium 3.9 3.5 - 5.5 mmol/L [...] Final Resul t [facility] [address] [place] [address], * (ABNORMAL) Complete blood count (05/22/2025 5:27 AM EDT) [facility] Signature WBC 2.8(L) 4.8 - 10.8 [...] HEMETOLOGY METHOD 05/22/2025 11:24 AM EDT [facility] Blood Venous blood specimen / Unknown Venipuncture / Unknown 05/22/2025 5:27 AM EDT 05/22/2025 9:40 AM EDT us Harris Gross MD LAB BLOOD ORDERABLES Final Resul t [facility] [address] [place] [address], documented in this encounter Visit Diagnoses Diagnosis Essential (primary) hypertension Unspecified essential hypertension Anemia, unspecified documented in this encounter Care Teams Swiss Machinist Relationship Specialty Start Date End Date Harris Gross MD [address] [place] [address] [address] [place] [address] PCP - General Geriatric Medicine 02/13/25 documented as of this encounter
--- OUTSIDE RECORDS SUMMARY | 2025-07-29 09:46 | XMS_ITS | Encounter Summary ---
Author Organization [facility] Address [address] [place] [address] Care Team Providers Care Fruit Loader Name Role Phone Harris Gross MD Primary Care Provider [phone] Encounter Details Date Type Department Care Team (Late st Contact Info) Description 06/06/2025 Lab Requisition [facility] - Main Lab 299 [facility] [place] [address] Harris Gross MD [address] [place], [place] [phone] Essential (primary) hypertension; Chronic obstructive pulmonary disease, [...] mmol/L LAB CHEMISTRY METHOD 06/09/2025 11:53 AM [facility] Potassium 4.4 3.5 - 5.5 mmol/L LAB CHEMISTRY METHOD 06/09/2025 11:53 AM [facility] LAB Chloride 104 96 - 110 mmol/L LAB CHEMISTRY METHOD 06/09/2025 11:53 AM [facility] CO2 29 21 - 32 mmol/L LAB CHEMISTRY METHOD 06/09/2025 11:53 AM [facility] LAB Anion Gap 5 3 - 11 LAB CHEMISTRY METHOD 06/09/2025 11:53 AM [facility] Glucose 73 70 - 100 mg/dL LAB CHEMISTRY METHOD 06/09/2025 11:53 AM [facility] BUN 26(H) 5 - 25 mg/dL LAB CHEMISTRY METHOD 06/09/2025 11:53 AM [facility] Creatinine 0.93 0.50 - 1.10 mg/dL LAB CHEMISTRY METHOD 06/09/2025 11:53 AM [facility] LAB eGFR 61 >=60 mL/min/1. 73m2 LAB CHEMISTRY METHOD 06/09/2025 11:53 AM [facility] LAB Comment:Calculation based on the Chronic Kidney Disease Epidemiology Collaboration (CKD-EPI) equation refit without adjustment for race. BUN/Creatinine Ratio 28.0 LAB CHEMISTRY METHOD 06/09/2025 11:53 AM [facility] Calcium 9.1 8.5 - 10.5 mg/dL LAB CHEMISTRY METHOD 06/09/2025 11:53 AM [facility] Blood Venous blood specimen / Unknown Venipuncture / Unknown 06/09/2025 4:55 AM EDT 06/09/2025 10:20 AM EDT Harris Gross MD LAB BLOOD ORDERABLES Final Resul t [facility] [address] [place] [address], * (ABNORMAL) Complete blood count (06/09/2025 4:55 AM EDT) WBC 3.1(L) 4.8 - 10.8 K/mcL LAB HEMETOLOGY METHOD 06/09/2025 11:14 AM EDT [facility] RBC 2.80(L) 3.80 - 4.80 M/mcL LAB HEMETOLOGY METHOD 06/09/2025 11:14 AM EDT [facility] Hemoglobin 8.0(L) 11.5 - 16.0 g/dL LAB HEMETOLOGY METHOD 06/09/2025 11:14 AM [facility] Hematocrit 26.2(L) 35.0 - 47.0 % LAB HEMETOLOGY METHOD 06/09/2025 11:14 AM EDT [facility] MCV 94.9 79.0 - 98.0 FL LAB HEMETOLOGY METHOD 06/09/2025 11:14 AM EDT [facility] MCH 29.0 27.0 - 32.0 pcg LAB HEMETOLOGY METHOD 06/09/2025 11:14 AM [facility] MCHC 30.5(L) 32.0 - 37.0 g/dL LAB HEMETOLOGY METHOD 06/09/2025 11:14 AM EDT [facility] RDW 18.4(H) 11.0 - 15.0 % LAB HEMETOLOGY METHOD 06/09/2025 11:14 AM EDT [facility] Platelets 130 130 - 400 K/mcL LAB HEMETOLOGY METHOD 06/09/2025 11:14 AM [facility] MPV 12.1(H) 7.0 - 11.0 FL LAB HEMETOLOGY METHOD 06/09/2025 11:14 AM EDT [facility] NRBC 0.0 <1.0 % LAB HEMETOLOGY METHOD 06/09/2025 11:14 AM EDT [facility] NRBC Absolute 0.00 <0.10 K/mcL LAB HEMETOLOGY METHOD 06/09/2025 11:14 AM EDT [facility] Blood Venous blood specimen / Unknown Venipuncture / Unknown 06/09/2025 4:55 AM EDT 06/09/2025 10:20 AM EDT us Harris Gross MD LAB BLOOD ORDERABLES Final Resul t [facility] [address] [place] [address], documented in this encounter Visit Diagnoses Diagnosis Essential (primary) hypertension Unspecified essential hypertension Chronic obstructive pulmonary disease, unspecified (CMS/HCC V24, CMS/HCC V28) documented in this encounter Care Teams Fruit Loader Relationship Specialty Start Date End Date Harris Gross MD [address] [place] [address] [address] [place] [address] PCP - General Geriatric Medicine 02/13/25 documented as of this encounter
--- OUTSIDE RECORDS SUMMARY | 2025-07-29 09:46 | XMS_ITS | Encounter Summary ---
Author Organization [facility] Address [address] [place] [address] Care Team Providers Care Barrel Lathe Operator Outside Name Role Phone Harris Gross MD Primary Care Provider [phone] Encounter Details Date Type Department Care Team (Late st Contact Info) Description 06/13/2025 Lab Requisition [facility] - Main Lab 299 [facility] [place] [address] Harris Gross MD [address] [place], [place] [phone] Essential (primary) hypertension; Chronic obstructive pulmonary disease, [...] mmol/L LAB CHEMISTRY METHOD 06/16/2025 10:31 AM [facility] LAB Potassium 4.3 3.5 - 5.5 mmol/L LAB CHEMISTRY METHOD 06/16/2025 10:31 AM [facility] LAB Chloride 104 96 - 110 mmol/L LAB CHEMISTRY METHOD 06/16/2025 10:31 AM [facility] LAB CO2 28 21 - 32 mmol/L LAB CHEMISTRY METHOD 06/16/2025 10:31 AM [facility] LAB Anion Gap 6 3 - 11 LAB CHEMISTRY METHOD 06/16/2025 10:31 AM [facility] LAB Glucose 77 70 - 100 mg/dL LAB CHEMISTRY METHOD 06/16/2025 10:31 AM [facility] LAB BUN 27(H) 5 - 25 mg/dL LAB CHEMISTRY METHOD 06/16/2025 10:31 AM [facility] LAB Creatinine 0.89 0.50 - 1.10 mg/dL LAB CHEMISTRY METHOD 06/16/2025 10:31 AM [facility] LAB eGFR 64 >=60 mL/min/1. 73m2 LAB CHEMISTRY METHOD 06/16/2025 10:31 AM [facility] LAB Comment:Calculation based on the Chronic Kidney Disease Epidemiology Collaboration (CKD-EPI) equation refit without adjustment for race. BUN/Creatinine Ratio 30.3 LAB CHEMISTRY METHOD 06/16/2025 10:31 AM [facility] LAB Calcium 9.3 8.5 - 10.5 mg/dL LAB CHEMISTRY METHOD 06/16/2025 10:31 AM [facility] LAB Blood Venous blood specimen / Unknown Venipuncture / Unknown 06/16/2025 5:01 AM EDT 06/16/2025 9:03 AM EDT Harris Gross MD LAB BLOOD ORDERABLES Final Resul t [facility] [address] [place] [address], * (ABNORMAL) Complete blood count (06/16/2025 5:01 AM EDT) WBC 3.2(L) 4.8 - 10.8 K/mcL LAB HEMETOLOGY METHOD 06/16/2025 10:06 AM EDT [facility] RBC 2.80(L) 3.80 - 4.80 M/mcL LAB HEMETOLOGY METHOD 06/16/2025 10:06 AM EDT [facility] Hemoglobin 8.3(L) 11.5 - 16.0 g/dL LAB HEMETOLOGY METHOD 06/16/2025 10:06 AM [facility] LAB Hematocrit 27.0(L) 35.0 - 47.0 % LAB HEMETOLOGY METHOD 06/16/2025 10:06 AM EDT [facility] MCV 95.7 79.0 - 98.0 FL LAB HEMETOLOGY METHOD 06/16/2025 10:06 AM EDT [facility] MCH 29.4 27.0 - 32.0 pcg LAB HEMETOLOGY METHOD 06/16/2025 10:06 AM [facility] LAB MCHC 30.7(L) 32.0 - 37.0 g/dL LAB HEMETOLOGY METHOD 06/16/2025 10:06 AM EDT [facility] RDW 17.9(H) 11.0 - 15.0 % LAB HEMETOLOGY METHOD 06/16/2025 10:06 AM EDT [facility] Platelets 119(L) 130 - 400 K/mcL LAB HEMETOLOGY METHOD 06/16/2025 10:06 AM [facility] LAB MPV 12.1(H) 7.0 - [...] Final Resul t [facility] [address] [place] [address], documented in this encounter Visit Diagnoses Diagnosis Essential (primary) hypertension Unspecified essential hypertension Chronic obstructive pulmonary disease, unspecified (CMS/HCC V24, CMS/HCC V28) documented in this encounter Care Teams Barrel Lathe Operator Outside Relationship Specialty Start Date End Date Harris Gross MD [address] [place] [address] [address] [place] [address] PCP - General Geriatric Medicine 02/13/25 documented as of this encounter
--- OUTSIDE RECORDS SUMMARY | 2025-07-29 09:46 | XMS_ITS | Encounter Summary ---
Author Organization [facility] Address [address] [place] [address] Care Team Providers Care Railroad Hand Name Role Phone Harris Gross MD Primary Care Provider [phone] Encounter Details Date Type Department Care Team (Late st Contact Info) Description 05/28/2025 Lab Requisition [facility] - Main Lab 299 [facility] [place] [address] Harris Gross MD [address] [place], [place] [phone] Essential (primary) hypertension Social History Tobacco Use [...] LAB CHEMISTRY METHOD 05/29/2025 10:23 AM EDT [facility] Potassium 4.4 3.5 - 5.5 mmol/L LAB CHEMISTRY METHOD 05/29/2025 10:23 AM [facility] LAB Chloride 104 96 - 110 mmol/L LAB CHEMISTRY METHOD 05/29/2025 10:23 AM [facility] CO2 31 21 - 32 mmol/L LAB CHEMISTRY METHOD 05/29/2025 10:23 AM [facility] LAB Anion Gap 5 3 - 11 LAB CHEMISTRY METHOD 05/29/2025 10:23 AM [facility] LAB Glucose 76 70 - 100 mg/dL LAB CHEMISTRY METHOD 05/29/2025 10:23 AM [facility] BUN 21 5 - 25 mg/dL LAB CHEMISTRY METHOD 05/29/2025 10:23 AM [facility] Creatinine 0.86 0.50 - 1.10 mg/dL LAB CHEMISTRY METHOD 05/29/2025 10:23 AM [facility] LAB eGFR 67 >=60 mL/min/1. 73m2 LAB CHEMISTRY METHOD 05/29/2025 10:23 AM [facility] LAB Comment:Calculation based on the Chronic Kidney Disease Epidemiology Collaboration (CKD-EPI) equation refit without adjustment for race. BUN/Creatinine Ratio 24.4 LAB CHEMISTRY METHOD 05/29/2025 10:23 AM [facility] Calcium 9.0 8.5 - 10.5 mg/dL LAB CHEMISTRY METHOD 05/29/2025 10:23 AM [facility] LAB Blood Venous blood specimen / Unknown Venipuncture / Unknown 05/29/2025 6:50 AM EDT 05/29/2025 9:14 AM EDT us Harris Gross MD LAB BLOOD ORDERABLES Final Resul t [facility] [address] [place] [address], * (ABNORMAL) Complete blood count (05/29/2025 6:50 AM EDT) Pathologist [facility] WBC 3.4(L) 4.8 - 10.8 K/mcL LAB HEMETOLOGY METHOD 05/29/2025 10:07 AM [facility] RBC 2.70(L) 3.80 - 4.80 M/mcL LAB HEMETOLOGY METHOD 05/29/2025 10:07 AM [facility] Hemoglobin 7.6(L) 11.5 - 16.0 g/dL LAB HEMETOLOGY METHOD 05/29/2025 10:07 AM [facility] LAB Hematocrit 25.2(L) 35.0 - 47.0 % LAB HEMETOLOGY METHOD 05/29/2025 10:07 AM [facility] MCV 93.0 79.0 - 98.0 FL LAB HEMETOLOGY METHOD 05/29/2025 10:07 AM [facility] MCH 28.0 27.0 - 32.0 pcg LAB HEMETOLOGY METHOD 05/29/2025 10:07 AM [facility] MCHC 30.2(L) 32.0 - 37.0 g/dL LAB HEMETOLOGY METHOD 05/29/2025 10:07 AM [facility] RDW 16.5(H) 11.0 - 15.0 % LAB HEMETOLOGY METHOD 05/29/2025 10:07 AM [facility] Platelets 135 130 - 400 K/[facility] LAB HEMETOLOGY METHOD 05/29/2025 10:07 AM [facility] MPV 12.0(H) 7.0 - 11.0 FL LAB HEMETOLOGY METHOD 05/29/2025 10:07 AM [facility] NRBC 0.0 <1.0 % LAB HEMETOLOGY METHOD 05/29/2025 10:07 AM [facility] LAB NRBC Absolute 0.00 <0.10 K/[facility] LAB HEMETOLOGY METHOD 05/29/2025 10:07 AM EDT [facility] LAB Blood Venous blood specimen / Unknown Venipuncture / Unknown 05/29/2025 6:50 AM EDT 05/29/2025 9:14 AM EDT Harris Gross MD LAB BLOOD ORDERABLES Final Resul t [facility] [address] [place] [address], documented in this encounter Visit Diagnoses Diagnosis Essential (primary) hypertension Unspecified essential hypertension documented in this encounter Care Teams Railroad Hand Relationship Specialty Start Date End Date Harris rGoss MD [address] [place] [address] [address] [place] [address] PCP - General Geriatric Medicine 02/13/25 documented as of this encounter
--- OUTSIDE RECORDS SUMMARY | 2025-07-29 09:46 | XMS_ITS | Encounter Summary ---
Author Organization [facility] Address [address] [place] [address] Care Team Providers Care Sports Media Name Role Phone Harris Gross MD Primary Care Provider [phone] Encounter Details Date Type Department Care Team (Late st Contact Info) Description 03/06/2025 Lab Requisition [facility] - Main Lab 299 [facility] [place] [address] Harris Gross MD [address] [place], [place] [phone] Altered mental status, unspecified; Dysuria Social History [...] reflex microscopic (03/06/2025 12:00 AM EDT) Specific [place] Urine 1.008 1.003 - 1.030 LAB URINALYSIS - AUTOMATED METHOD 03/06/2025 10:34 AM [facility] pH, Urine 7.5 5.0 - 8.0 pH LAB URINALYSIS - AUTOMATED METHOD 03/06/2025 10:34 AM [facility] Leukocytes, Urine Negative Negative LAB URINALYSIS - AUTOMATED METHOD 03/06/2025 10:34 AM [facility] Nitrite, Urine Negative Negative LAB URINALYSIS - AUTOMATED METHOD 03/06/2025 10:34 AM [facility] Protein, Urine Negative <=Trace mg/dL LAB URINALYSIS - AUTOMATED METHOD 03/06/2025 10:34 AM [facility] Glucose, Urine Negative Negative mg/dL LAB URINALYSIS - AUTOMATED METHOD 03/06/2025 10:34 AM [facility] Ketones, Urine Negative Negative mg/dL LAB URINALYSIS - AUTOMATED METHOD 03/06/2025 10:34 AM [facility] Urobilinogen, Urine 0.2 0.2 - 1.0 mg/dL LAB URINALYSIS - AUTOMATED METHOD 03/06/2025 10:34 AM [facility] Bilirubin, Urine Negative Negative LAB URINALYSIS - AUTOMATED METHOD 03/06/2025 10:34 AM [facility] Blood, Urine Negative Negative LAB URINALYSIS - AUTOMATED METHOD 03/06/2025 10:34 AM [facility] Urine Urine specimen obtained by clean catch procedure / Unknown 03/06/2025 03/06/2025 8:51 AM EDT us Harris Gross MD LAB URINE ORDERABLES Final Resul t [facility] [address] [place] [address], * Culture urine (03/06/2025 12:00 AM EDT) Culture, Urine <10,000 CFU/mL gram positive cocci, insignificant count, no further workup 03/07/2025 1:00 PM EDT [facility] Urine Urine specimen obtained by clean catch procedure / Unknown 03/06/2025 03/06/2025 8:51 AM EDT Harris Gross MD LAB MICROBIOLOGY - GENERAL ORDER ROEL Final Result [facility] [address] [place] [address], documented in this encounter Visit Diagnoses Diagnosis Altered mental status, unspecified Dysuria documented in this encounter Care Teams Sports Media Relationship Specialty Start Date End Date Harris Gross MD [address] [place] [address] [address] [place] [address] PCP - General Geriatric Medicine 02/13/25 documented as of this encounter
--- OUTSIDE RECORDS SUMMARY | 2025-07-29 09:46 | XMS_ITS | Encounter Summary ---
Author Organization [facility] Address [address] [place] [address] Care Team Providers Care Surgery Specialist Name Role Phone Harris Gross MD Primary Care Provider [phone] Encounter Details Date Type Department Care Team (Late st Contact Info) Description 05/30/2025 Lab Requisition [facility] - Main Lab [address] [facility] [place] [address] Harris Gross MD [address] [place], [place] [id number] Frequency of micturition Social History Tobacco Use [...] reflex microscopic (05/29/2025 8:00 AM EDT) Specific [place] Urine 1.016 1.003 - 1.030 LAB URINALYSIS - AUTOMATED METHOD 05/30/2025 8:36 AM [facility] pH, Urine 5.5 5.0 - 8.0 pH LAB URINALYSIS - AUTOMATED METHOD 05/30/2025 8:36 AM [facility] Leukocytes, Urine Negative Negative LAB URINALYSIS - AUTOMATED METHOD 05/30/2025 8:36 AM [facility] Nitrite, Urine Negative Negative LAB URINALYSIS - AUTOMATED METHOD 05/30/2025 8:36 AM [facility] Protein, Urine Negative <=Trace mg/dL LAB URINALYSIS - AUTOMATED METHOD 05/30/2025 8:36 AM [facility] Glucose, Urine Negative Negative mg/dL LAB URINALYSIS - AUTOMATED METHOD 05/30/2025 8:36 AM [facility] Ketones, Urine Negative Negative mg/dL LAB URINALYSIS - AUTOMATED METHOD 05/30/2025 8:36 AM [facility] Urobilinogen, Urine 0.2 0.2 - 1.0 mg/dL LAB URINALYSIS - AUTOMATED METHOD 05/30/2025 8:36 AM [facility] Bilirubin, Urine Negative Negative LAB URINALYSIS - AUTOMATED METHOD 05/30/2025 8:36 AM [facility] Blood, Urine Negative Negative LAB URINALYSIS - AUTOMATED METHOD 05/30/2025 8:36 AM [facility] Urine Urine specimen obtained by clean catch procedure / Unknown Non-blood Collection / Unknown 05/29/2025 8:00 AM EDT 05/30/2025 8:05 AM EDT us Harris Gross MD LAB URINE ORDERABLES Final Resul t [facility] [address] [place] [address], * (ABNORMAL) Culture urine (05/29/2025 8:00 AM EDT) Culture, Urine 10,000-49,000 CFU/mL Streptococcus viridans group(A) 06/03/2025 8:59 AM EDT [facility] Comment: Susceptibility testing not [...] AM EDT 05/30/2025 8:05 AM EDT Narrative [facility] - 06/03/2025 8:59 AM EDT Additional colony types present in insignificant amounts. Harris Gross MD LAB MICROBIOLOGY - GENERAL ORDER ROEL Final Result [facility] [address] [place] [address], documented in this encounter Visit Diagnoses Diagnosis Frequency of micturition Urinary frequency documented in this encounter Care Teams Surgery Specialist Relationship Specialty Start Date End Date Harris Gross MD [address] [place] [address] [address] [place] [address] PCP - General Geriatric Medicine 02/13/25 documented as of this encounter
--- OUTSIDE RECORDS SUMMARY | 2025-07-29 09:46 | XMS_ITS | Encounter Summary ---
Author Organization [facility] Address [address] [place] [address] Care Team Providers Care Environmental Protection Forester Name Role Phone Harris Gross MD Primary Care Provider [phone] Encounter Details Date Type Department Care Team (Late st Contact Info) Description 05/21/2025 Lab Requisition [facility] - Main Lab [address] [facility] [place] [address] Harris Gross MD [address] [place], [place] [phone] Essential (primary) hypertension; Chronic obstructive pulmonary disease, [...] mmol/L LAB CHEMISTRY METHOD 05/21/2025 11:07 AM [facility] Potassium 4.2 3.5 - 5.5 mmol/L LAB CHEMISTRY METHOD 05/21/2025 11:07 AM [facility] Chloride 104 96 - 110 mmol/L LAB CHEMISTRY METHOD 05/21/2025 11:07 AM [facility] CO2 29 21 - 32 mmol/L LAB CHEMISTRY METHOD 05/21/2025 11:07 AM [facility] Anion Gap 5 3 - 11 LAB CHEMISTRY METHOD 05/21/2025 11:07 AM [facility] Glucose 74 70 - 100 [...] LAB CHEMISTRY METHOD 05/21/2025 11:07 AM EDT [facility] Alkaline Phosphatase 86 42 - 121 unit/L LAB CHEMISTRY METHOD 05/21/2025 11:07 AM EDT [facility] Total Protein 6.1 6.0 - 8.0 g/dL LAB CHEMISTRY METHOD 05/21/2025 11:07 AM [facility] Albumin 3.4 3.2 - 5.0 g/dL LAB CHEMISTRY METHOD 05/21/2025 11:07 AM T [facility] Total Bilirubin 0.2 0.0 - 1.4 mg/dL LAB CHEMISTRY METHOD 05/21/2025 11:07 AM [facility] Blood Venous blood specimen / Unknown Venipuncture / Unknown 05/21/2025 4:56 AM EDT 05/21/2025 10:01 AM EDT us Harris Gross MD LAB BLOOD ORDERABLES Final Resul t [facility] [address] [place] [address], * (ABNORMAL) Complete blood count (05/21/2025 4:56 AM EDT) WBC 3.1(L) 4.8 - 10.8 K/[facility] LAB [facility]OLOGY [facility] RBC 2.50(L) 3.80 - 4.80 M/mcL LAB HEMETOLOGY METHOD 05/21/2025 10:[facility] Hemoglobin 6.9(L) 11.5 - 16.0 g/dL LAB HEMETOLOGY METHOD 05/21/2025 10:50 AM [facility] Hematocrit 22.8(L) 35.0 - 47.0 % LAB HEMETOLOGY METHOD 05/21/2025 10:50 AM EDT [facility] MCV 91.2 79.0 - 98.0 FL LAB HEMETOLOGY METHOD 05/21/2025 10:50 AM EDT [facility] MCH 27.6 27.0 - 32.0 pcg LAB HEMETOLOGY METHOD 05/21/2025 10:50 AM EDT [facility] MCHC 30.3(L) 32.0 - 37.0 g/dL LAB HEMETOLOGY METHOD 05/21/2025 10:50 AM EDT [facility] RDW 14.9 11.0 - 15.0 % LAB HEMETOLOGY METHOD 05/21/2025 10:50 AM EDT [facility] Platelets 149 130 - 400 K/mcL LAB HEMETOLOGY METHOD 05/21/2025 10:50 AM EDT [facility] MPV 11.7(H) 7.0 - 11.0 FL LAB HEMETOLOGY METHOD 05/21/2025 10:50 AM EDT [facility] NRBC 0.0 <1.0 % LAB HEMETOLOGY METHOD 05/21/2025 10:50 AM EDT [facility] NRBC Absolute 0.00 <0.10 K/mcL LAB HEMETOLOGY METHOD 05/21/2025 10:50 AM EDT [facility] Blood Venous blood specimen / Unknown Venipuncture / Unknown 05/21/2025 4:56 AM EDT 05/21/2025 10:01 AM EDT us Harris Gross MD LAB BLOOD ORDERABLES Final Resul t [facility] [address] [place] [address], documented in this encounter Visit Diagnoses Diagnosis Essential (primary) hypertension Unspecified essential hypertension Chronic obstructive pulmonary disease, unspecified (CMS/HCC V24, CMS/HCC V28) Dizziness and giddiness documented in this encounter Care Teams Environmental Protection Forester Relationship Specialty Start Date End Date Harris Gross MD [address] [place] [address] [address] [place] [address] PCP - General Geriatric Medicine 02/13/25 documented as of this encounter
--- OUTSIDE RECORDS SUMMARY | 2025-07-29 09:46 | XMS_ITS | Clinical Summary ---
Author Organization [facility] Address [address] [place] [phone] Phone Care Team Providers Care Legal Document Specialist Name Role Phone Nick Gomez Primary [...] file Insurance MEDICARE PART A & B [facility] [employer] MEDICARE SUPPLEMENT MEDICARE PART A & B [facility] [employer] MEDICARE SUPPLEMENT MEDICARE PART A & B [employer] MEDICARE SUPPLEMENT MEDICARE PART A & B [facility] MEDICARE SUPPLEMENT MEDICARE PART A & B [facility] [employer] MEDICARE SUPPLEMENT MEDICARE PART A & B [facility] MEDICARE SUPPLEMENT MEDICARE PART A & B [facility] MEDICARE SUPPLEMENT MEDICARE PART A & B Member Subscriber Plan / Payer (Ef fective 2005-Present) Name:Bella Henley Member ID:[id number] Relation to Subscriber:Self Name:Bella Henley Subscriber ID:[id number] Payer ID:[id number] Group ID:Not on file Type:Medicare Address: [place]XX [address] [place] [id number] [facility] MEDICARE SUPPLEMENT MEDICARE PART A & B [facility] SUPPLEMENT Care Teams Legal Document Specialist Relationship Specialty Start Date End Date Nick Gomez PA [address] [place] [address] PCP - General Physician Director Of Capital Giving 05/14/23 Additional Source Comments The information contained in this document represents components of the legal health record. It is not the complete legal health record.[facility]
--- OUTSIDE RECORDS SUMMARY | 2025-07-29 09:47 | XMS_ITS | Clinical Summary ---
Author Organization [address] Address [address] [place] [address] Phone Care Team Providers Care Surgical Brace Maker Name Role Phone Harris Gross MD Primary Care Provider [phone] Encounters Date Type Department Care Team Description 06/21/2025 Lab Requisition [facility] Lab [address] [place] [phone] Harris Gross MD Essential (primary) hypertension; Chronic obstructive pulmonary disease, unspecified (CMS/HCC V24, CMS/HCC V28) 06/13/2025 Lab Requisition [facility] Lab [address] [place] [phone] Harris Gross MD Essential (primary) hypertension; Chronic obstructive pulmonary disease, unspecified (CMS/HCC V24, CMS/HCC V28) 06/06/2025 Lab Requisition [facility] Lab [address] [place] [phone] Harris Gross MD Essential (primary) hypertension; Chronic obstructive pulmonary disease, unspecified (CMS/HCC V24, CMS/HCC V28) 05/30/2025 Lab Requisition [facility] Lab [address] [place] [phone] Harris Gross MD Essential (primary) hypertension; Chronic obstructive pulmonary disease, unspecified (CMS/HCC V24, CMS/HCC V28) 05/30/2025 Lab Requisition [facility] Lab [address] [place] [phone] Harris Gross MD Frequency of micturition 05/28/2025 Lab Requisition [facility] Lab [address] [place] [phone] Harris Gross MD Essential (primary) hypertension 05/25/2025 Lab Requisition [facility] Lab [address] [place] [phone] Harris Gross MD Essential (primary) hypertension; Chronic obstructive pulmonary disease, unspecified (CMS/HCC V24, CMS/HCC V28); Gastro-esophageal reflux disease without esophagitis; Anemia, unspecified 05/22/2025 Lab Requisition [facility] Lab [address] [place] [phone] Harris Gross MD Essential (primary) hypertension; Anemia, unspecified 05/21/2025 Lab Requisition [facility] Lab [address] [place] [phone] Harris Gross MD Essential (primary) hypertension; Chronic [...] 06/16/2025 10:06 AM [facility] RBC 2.80(L) 3.80 - 4.80 M/mcL LAB HEMETOLOGY METHOD 06/16/2025 10:06 AM [facility] Hemoglobin 8.3(L) 11.5 - 16.0 g/dL LAB HEMETOLOGY METHOD 06/16/2025 10:06 AM [facility] Hematocrit 27.0(L) 35.0 - 47.0 % LAB HEMETOLOGY METHOD 06/16/2025 10:06 AM [facility] MCV 95.7 79.0 - 98.0 FL LAB HEMETOLOGY METHOD 06/16/2025 10:06 AM EDT [facility] MCH 29.4 27.0 - 32.0 pcg LAB HEMETOLOGY METHOD 06/16/2025 10:06 AM EDT [facility] MCHC 30.7(L) 32.0 - 37.0 g/dL LAB HEMETOLOGY METHOD 06/16/2025 10:06 AM EDT [facility] RDW 17.9(H) 11.0 - 15.0 % LAB HEMETOLOGY METHOD 06/16/2025 10:06 AM T [facility] Platelets 119(L) 130 - 400 K/mcL LAB HEMETOLOGY METHOD 06/16/2025 10:06 AM T [facility] MPV 12.1(H) 7.0 - 11.0 FL LAB HEMETOLOGY METHOD 06/16/2025 10:06 AM EDT [facility] NRBC 0.0 <1.0 % LAB HEMETOLOGY METHOD 06/16/2025 10:06 AM [facility] NRBC Absolute 0.00 <0.10 K/mcL LAB HEMETOLOGY METHOD 06/16/2025 10:06 AM [facility] Blood Venous blood specimen / Unknown Venipuncture / Unknown 06/16/2025 5:01 AM EDT 06/16/2025 9:03 AM EDT us Harris Gross MD LAB BLOOD ORDERABLES Final Resul t [facility] [address] [place] [address], * (ABNORMAL) Basic metabolic panel (06/16/2025 5:01 AM EDT) Only the most recent of6 resultswithin the time period is included. [facility] Sodium 138 133 - 145 mmol/L [...] Resul t [facility] [address] [place] [address], [place] [phone] * Urinalysis with reflex microscopic (05/29/2025 8:00 AM EDT) Specific [place] Urine 1.016 1.003 - 1.030 LAB URINALYSIS - AUTOMATED METHOD 05/30/2025 8:36 AM [facility] pH, Urine 5.5 5.0 - 8.0 pH LAB URINALYSIS - AUTOMATED METHOD 05/30/2025 8:36 AM [facility] Leukocytes, Urine Negative Negative LAB URINALYSIS - AUTOMATED METHOD 05/30/2025 8:36 AM [facility] Nitrite, Urine Negative Negative LAB URINALYSIS - AUTOMATED METHOD 05/30/2025 8:36 AM [facility] Protein, Urine Negative <=Trace mg/dL LAB URINALYSIS - AUTOMATED METHOD 05/30/2025 8:36 AM [facility] Glucose, Urine Negative Negative mg/dL LAB URINALYSIS - AUTOMATED METHOD 05/30/2025 8:36 AM [facility] Ketones, Urine Negative Negative mg/dL LAB URINALYSIS - AUTOMATED METHOD 05/30/2025 8:36 AM [facility] Urobilinogen, Urine 0.2 0.2 - 1.0 mg/dL LAB URINALYSIS - AUTOMATED METHOD 05/30/2025 8:36 AM [facility] Bilirubin, Urine Negative Negative LAB URINALYSIS - AUTOMATED METHOD 05/30/2025 8:36 AM [facility] Blood, Urine Negative Negative LAB URINALYSIS - AUTOMATED METHOD 05/30/2025 8:36 AM [facility] Urine Urine specimen obtained by clean catch procedure / Unknown Non-blood Collection / Unknown 05/29/2025 8:00 AM EDT 05/30/2025 8:05 AM EDT us Harris Gross MD LAB URINE ORDERABLES Final Resul t Performing Organization Address City/[facility]/ZIP Co de Phone Number [facility] [address] [place] [address], [place] [phone] * (ABNORMAL) Culture urine (05/29/2025 8:00 AM EDT) Culture, Urine 10,000-49,000 CFU/mL Streptococcus viridans group(A) 06/03/2025 8:59 AM EDT [facility] Comment: Susceptibility testing not routinely performed. If further therapeutic information is required, please consult an infectious disease specialist. The organism value for this result has been updated. These results have been appended to the previously preliminary verified report. Urine Urine specimen obtained by clean catch procedure / Unknown Non-blood Collection / Unknown 05/29/2025 8:00 AM EDT 05/30/2025 8:05 AM EDT Narrative [facility] - 06/03/2025 8:59 AM EDT Additional colony types present in insignificant amounts. us Harris Gross MD LAB MICROBIOLOGY - GENERAL ORDER ROEL Final Result Performing Organization Address [facility] Co de Phone Number [facility] [address] [place] [address], [place] [phone] * Iron and TIBC (05/26/2025 4:52 AM EDT) Iron 88 40 - 150 mcg/dL LAB CHEMISTRY METHOD 05/26/2025 12:56 PM EDT [facility] TIBC 358 250 - 450 mcg/dL LAB CHEMISTRY METHOD 05/26/2025 12:56 PM EDT [facility] Iron Saturation 25 15 - 50 % LAB CHEMISTRY METHOD 05/26/2025 12:56 PM EDT [facility] Blood Venous blood specimen / Unknown Venipuncture / Unknown 05/26/2025 4:52 AM EDT 05/26/2025 10:18 AM EDT us Harris Gross MD LAB BLOOD ORDERABLES Final Resul t Performing Organization Address City/[facility]/ZIP Co de Phone Number [facility] [address] [place] [address], [place] [phone] * Ferritin (05/26/2025 4:52 AM EDT) [facility] Ferritin 23 8 - 252 ng/mL LAB CHEMISTRY METHOD 05/26/2025 12:57 PM EDT [facility] Blood Venous blood specimen / Unknown Venipuncture / Unknown 05/26/2025 4:52 AM EDT 05/26/2025 10:18 AM EDT us Harris Gross MD LAB BLOOD ORDERABLES Final Resul t Performing Organization Address City/[facility]/ZIP Co de Phone Number [facility] [address] [place] [address], [place] [phone] * (ABNORMAL) Comprehensive metabolic panel (05/21/2025 4:56 AM EDT) [facility] Sodium 138 133 - 145 mmol/L LAB CHEMISTRY METHOD 05/21/2025 11:07 AM EDT [facility] Potassium 4.2 3.5 - 5.5 mmol/L LAB CHEMISTRY METHOD 05/21/2025 11:07 AM EDT [facility] Chloride 104 96 - 110 mmol/L LAB CHEMISTRY METHOD 05/21/2025 11:07 AM EDT [facility] CO2 29 21 - 32 mmol/L LAB CHEMISTRY METHOD 05/21/2025 11:07 AM EDT [facility] Anion Gap 5 3 - 11 LAB CHEMISTRY METHOD 05/21/2025 11:07 AM EDT [facility] Glucose 74 70 [...] 05/21/2025 11:07 AM [facility] Alkaline Phosphatase 86 42 - 121 unit/L LAB CHEMISTRY METHOD 05/21/2025 11:07 AM [facility] Total Protein 6.1 6.0 - 8.0 g/dL LAB CHEMISTRY METHOD 05/21/2025 11:07 AM [facility] Albumin 3.4 3.2 - 5.0 g/dL LAB CHEMISTRY METHOD 05/21/2025 11:07 AM [facility] Total Bilirubin 0.2 0.0 - 1.4 mg/dL LAB CHEMISTRY METHOD 05/21/2025 11:07 AM [facility] Blood Venous blood specimen / Unknown Venipuncture / Unknown 05/21/2025 4:56 AM EDT 05/21/2025 10:01 AM EDT us Harris Gross MD LAB BLOOD ORDERABLES Final Resul t [facility] [address] [place] [address], [place] [phone] from Last 3 Months Insurance MEDICARE [facility] Advance Directives Documents on File Type Date Recorded Patient Catalyst Concentration Operator Expl anation Health Care Decision (hx) 09/07/2023 HE ALTH CARE PROXY Health Care Decision (hx) 03/03/2023 HE ALTH CARE PROXY Care Teams Surgical Brace Maker Relationship Specialty Start Date End Date Harris Gross MD [address] [facility] [address] [place] [address] PCP - General Geriatric Medicine 02/13/25
--- OUTSIDE RECORDS SUMMARY | 2025-07-29 09:47 | XMS_ITS | Encounter Summary ---
Author Organization [facility] Address [address] [place] [address] Phone Care Team Providers Care Plan Examiner Name Role Phone Norm Bates Unavailable [phone] Verónica Nielson MD Unavailable [phone] Bandar Renteria MD Unavailable [phone] Luis Milner CNP Unavailable [phone] Martha Estrada MD Unavailable [phone] David Walton MD Unavailable [phone] Deny Saleh DO Primary Care Provider [phone] Bandar Renteria MD Primary Care Provider Nick Gomez Primary Care Provider + Encounter Details Date Type Department Care Team (Late st Contact Info) Description 12/14/2020 Transcribe Orders [facility] [place] [address] [place] [address] Deny Saleh DO [address] [facility] [address] [place], [place] [phone] [email or web address] Social History Tobacco Use Types Packs/Day Years [...] on filedocumented in this encounter Care Teams Plan Examiner Relationship Specialty Start Date End Date Nunudelfina Deny SawyerDO [address] [place] [address] [email or web address] PCP - General Internal Medicine 08/09/17 01/09/21 Bandar Renteria MD [address] [place] [address] [address] PCP - General Internal Medicine 01/10/21 05/13/23 Nick Gomez PA [address] [place] [address] PCP - General Physician Chemist Steroids 05/14/23 Norm Bates PA [address] [place] [address] Historical LMR Provider 06/22/17 2 Verónica Nielson MD [address] [address] Historical LMR Provider 06/22/17 Bandar Renteria MD [address] [place] [address] [address] Historical LMR Provider 06/22/17 2 Luis Milner CNP [address] [address] [email or web address] Historical LMR Provider 06/22/17 09/11/21 Martha Estrada MD [address] [facility], [facility] [place] [address] [email or web address] Historical LMR Provider 06/22/17 David Walton MD [address] [place] [address] Historical LMR Provider 06/22/17 2 documented as of this encounter Additional Source Comments The information contained in this document represents components of the legal health record. It is not the complete legal health record.[facility]
--- OUTSIDE RECORDS SUMMARY | 2025-07-29 09:47 | XMS_ITS | Encounter Summary ---
Author Organization [facility] Address [address] [place] [address] Care Team Providers Care Casino Shift Manager Name Role Phone Harris Gross MD Primary Care Provider [phone] Encounter Details Date Type Department Care Team (Late st Contact Info) Description 02/13/2025 Lab Requisition [facility] - Main Lab [address] [facility] [place] [address] Harris Gross MD [address] [place], [place] [id number] Vitamin D deficiency, unspecified; Gastrointestinal hemorrhage, unspecified; [...] * Vitamin B12 (02/13/2025 6:49 AM EDT) [facility] Vitamin B-12 391 250 - 900 pcg/mL LAB CHEMISTRY METHOD 02/13/2025 10:[address] [facility] Blood Venous blood specimen / Unknown Venipuncture / Unknown 02/13/2025 6:49 AM EDT 02/13/2025 8:56 AM EDT us Harris Gross MD LAB BLOOD ORDERABLES Final Resul t Performing Organization Address [facility]/ZIP Co de Phone Number [facility] [address] [place] [address], [place] [phone] * Vitamin D 25 hydroxy (02/13/2025 6:49 AM EDT) [facility] Vit D, 25-Hydroxy 57.4 30.0 - 80.0 ng/mL LAB CHEMISTRY METHOD 02/13/2025 11:[address] [facility] Blood Venous blood specimen / Unknown Venipuncture / Unknown 02/13/2025 6:49 AM EDT 02/13/2025 8:56 AM EDT us Harris Gross MD LAB BLOOD ORDERABLES Final Resul t [facility] [address] [place] [address], [place] [phone] * Thyroid stimulating hormone (02/13/2025 6:49 AM EDT) [facility] TSH 1.12 0.40 - 4.00 mcIU/mL LAB CHEMISTRY METHOD 02/13/2025 11:[address] [facility] Blood Venous blood specimen / Unknown Venipuncture / Unknown 02/13/2025 6:49 AM EDT 02/13/2025 8:56 AM EDT Harris Gross MD LAB BLOOD ORDERABLES Final Resul t [facility] [address] [place] [address], [place] [phone] * (ABNORMAL) Comprehensive metabolic panel (02/13/2025 6:49 AM EDT) Sodium 140 133 - 145 mmol/L LAB CHEMISTRY METHOD 02/13/2025 10:12 AM [facility] Potassium 3.8 3.5 - 5.5 mmol/L LAB CHEMISTRY METHOD 02/13/2025 10:12 AM [facility] Chloride 105 96 - 110 mmol/L LAB CHEMISTRY METHOD 02/13/2025 10:12 AM [facility] CO2 29 21 - 32 mmol/L LAB CHEMISTRY METHOD 02/13/2025 10:12 AM [facility] Anion Gap 6 3 - 11 LAB CHEMISTRY METHOD 02/13/2025 10:12 AM [facility] Glucose 91 70 - 100 mg/dL LAB CHEMISTRY METHOD 02/13/2025 10:12 AM [facility] BUN 24 5 - 25 mg/dL LAB CHEMISTRY METHOD 02/13/2025 10:12 AM [facility] Creatinine 0.88 0.50 - 1.10 mg/dL LAB CHEMISTRY METHOD 02/13/2025 10:12 AM [facility] eGFR 65 >=60 mL/min/1. 73m2 LAB CHEMISTRY METHOD 02/13/2025 10:12 AM [facility] Comment:Calculation based on the Chronic Kidney Disease Epidemiology Collaboration (CKD-EPI) equation refit without adjustment for race. BUN/Creatinine Ratio 27.3 LAB CHEMISTRY METHOD 02/13/2025 10:12 AM [facility] Calcium 9.2 8.5 - 10.5 mg/dL LAB CHEMISTRY METHOD 02/13/2025 10:12 AM [facility] AST (SGOT) 14 10 - 42 unit/L LAB CHEMISTRY METHOD 02/13/2025 10:12 AM [facility] ALT (SGPT) 14 10 - 60 unit/L LAB CHEMISTRY METHOD 02/13/2025 10:12 AM [facility] Alkaline Phosphatase 88 42 - 121 unit/L LAB CHEMISTRY METHOD 02/13/2025 10:12 AM [facility] Total Protein 5.9(L) 6.0 - 8.0 g/dL LAB CHEMISTRY METHOD 02/13/2025 10:12 AM [facility] Albumin 3.1(L) 3.2 - 5.0 g/dL LAB CHEMISTRY METHOD 02/13/2025 10:12 AM [facility] Total Bilirubin 0.4 0.0 - 1.4 mg/dL LAB CHEMISTRY METHOD 02/13/2025 10:12 AM [facility] Blood Venous blood specimen / Unknown Venipuncture / Unknown 02/13/2025 6:49 AM EDT 02/13/2025 8:56 AM EDT us Harris Gross MD LAB BLOOD ORDERABLES Final Resul t [facility] [address] [place] [address], * (ABNORMAL) Complete blood count (02/13/2025 6:49 AM EDT) WBC 3.3(L) 4.8 - 10.8 K/mcL LAB HEMETOLOGY METHOD 02/13/2025 9:07 AM [facility] RBC 2.90(L) 3.80 - 4.80 M/mcL LAB HEMETOLOGY METHOD 02/13/2025 9:07 AM [facility] Hemoglobin 8.4(L) 11.5 - 16.0 g/dL LAB HEMETOLOGY METHOD 02/13/2025 9:07 AM [facility] Hematocrit 27.2(L) 35.0 - 47.0 % LAB HEMETOLOGY METHOD 02/13/2025 9:07 AM [facility] MCV 94.8 79.0 - 98.0 FL LAB HEMETOLOGY METHOD 02/13/2025 9:07 AM [facility] MCH 29.3 27.0 - 32.0 pcg LAB HEMETOLOGY METHOD 02/13/2025 9:07 AM [facility] MCHC 30.9(L) 32.0 - 37.0 g/dL LAB HEMETOLOGY METHOD 02/13/2025 9:07 AM [facility] RDW 14.9 11.0 - 15.0 % LAB HEMETOLOGY METHOD 02/13/2025 9:07 AM [facility] Platelets 132 130 - 400 K/mcL LAB HEMETOLOGY METHOD 02/13/2025 9:07 AM [facility] MPV 11.8(H) 7.0 - 11.0 FL LAB HEMETOLOGY METHOD 02/13/2025 9:07 AM [facility] NRBC 0.0 <1.0 % LAB HEMETOLOGY METHOD 02/13/2025 9:07 AM [facility] NRBC Absolute 0.00 <0.10 K/mcL LAB HEMETOLOGY METHOD 02/13/2025 9:07 AM [facility] Blood Venous blood specimen / Unknown Venipuncture / Unknown 02/13/2025 6:49 AM EDT 02/13/2025 8:56 AM EDT Harris Gross MD LAB BLOOD ORDERABLES Final Resul t [facility] ([facility] [address] [place] [address], documented in this encounter Visit Diagnoses Diagnosis Vitamin D deficiency, unspecified Gastrointestinal hemorrhage, unspecified Aphagia Anorexia documented in this encounter Care Teams Casino Shift Manager Relationship Specialty Start Date End Date Harris Gross MD [address] [place] [address] [address] [place] [address] PCP - General Geriatric Medicine 02/13/25 documented as of this encounter
--- OUTSIDE RECORDS SUMMARY | 2025-07-29 09:47 | XMS_ITS | Data Portability ---
Author Organization [facility] Internal Medicine, Telehealth Patient Home Address [address] [place] [address] Assessment No assessment recorded. Plan of Treatment Reminders Order Date Submit Date Provider Last Modified By Organization Details Last Modified Time Details Appointments None recorded. Lab BMP, blood [address] Internal Medicine, [address] [place] [address], [place], [address], 9 07:42:19 lipid panel, blood [address] Internal Medicine, [address] [place] [address], [place], [address], 9 07:42:20 Referral None recorded. Procedures None recorded. Surgeries None recorded. Imaging None recorded. Medication Orders Cipro 500 mg tablet 2018 019 [id number], [address] [place], [place], [phone], 9 11:53:38 Zithromax Z-Rajesh 250 mg tablet [address] [facility] #[id number], [address] [place], [place], [phone], 9 11:53:23 metoprolol succinate ER 25 mg tablet,exte nded release 24 hr 2018 019 [id number], [address] [place], [place], [phone], 9 11:15:40 Patient Targets Encounter Date Encounter Id Patient Goals Patient Target Last Modified By Organization Details Last Modified Time 09/26/2018 [id number] Call therapist to schedule counseling mindyerlinda Not available 09/26/2018 11:54:07 Patient Instructions Encounter Date Encounter Id Patient Instructions Last Modified By Organization Details Last Modified Time 09/21/2018 [id number] Relaxation, reconsider escitalopram- will review at f/u next week to avoid dual med starting together marilynn Not available 09/21/2018 15:27:44 09/26/2018 [id number] pulse oximetry* marilynn Not available 09/26/2018 11:54:08 10/08/2018 [id number] Acute Sinusitis: Care Instructions marilynn Not available 10/08/2018 11:28:17 pulse oximetry* marilynn Not available 10/08/2018 11:28:17 12/04/2018 [id number] pulse oximetry* marilynn Not available 12/04/2018 12:22:51 Reason for Referral None Reported. Results Created Date Observation Date Name Description Value Unit Range Abnormal Flag Note LastModifiedBy Organization Detail LastModifiedTime 09/26/1909/26/2018 pulse oxime try* Result 96 Not Available [facility] [address] [place] [address], [phone], 09/26/2018 11:15:30 10/08/19 19 10/08/2018 pulse oxime try* Result 97 Not Available [facility] [address] [place] [address], [phone], 10/08/2018 11:18:00 12/05/19 19 12/04/2018 pulse oxime try* Result 97 Not Available [facility] [address] [place] [address], [phone], 12/04/2018 11:55:20 Result Notes None recorded. Problems Name Problem SNOMED Code Status Onset Date Resolution Date Notes Provider Name and Address Organization Details Recorded Time Diverticul itis 091363524 Active 2017 Taina Hanson [facility] 8 16:58:14 Chronic obstructiv e pulmonary disease 70636296 Active 2017 Tainaronnell Hanson [facility] 8 16:58:22 Aortic valve stenosis 51796966 Active 2017 Tainaronnell Hanson [facility] 8 16:58:36 Anxiety 48651978 Active 2017 Tainaronnell Hanson [facility] 8 16:58:45 Cystocele 772947714 Active 2017 Tainaronnell Hanson [facility] 8 16:58:58 Abdominal aortic aneurysm 345367688 Active 2017 Samina Lama NP, [address] [place], [address], [facility] 8 13:58:39 Problem Notes None recorded. Medical Equipment None Reported. Allergies Allergen ID Allergen Name Allergen Category Reaction Reaction Severity Criticality Documentation Date Start Date Code Code System Note Provider Name and Address Organization Details Recorded Time 1547 Substance with sulfonami de structure and antibacte rial mechanism of action (substanc e) medicatio n Not available Not available Not available 02/06/2018 37835 8003 SNOMED Tainaronnell Hanson [facility] 8 16:57:43 1548 Keflex medicatio n Not available Not available Not available 02/06/2018 7 RxNorm Taina Tarangoicki [facility] 8 16:57:55 2328 Flagyl medicatio n other moderate Not available 05/29/2018 6 RxNorm [facility]nell [facility] 8 11:44:55 2717 metoprolo l Not available chest pain Not available Not available 09/21/2018 6918 RxNorm Tainaronnell Tarangoickdonaldo [facility] 9 16:31:23 Medications Name Sig Start Date [...] Recorded Body height Heart rate Oxygen saturation Systolic And Diastolic Provider Name and Address Organization Details Last Updated DateTime 09/21/2018 168.91 cm 97 /min 97 % 128/84 mm[Hg] Taina Balicki [facility] 09/21/2018 14:32:26 Date Recorded Body height Heart rate Oxygen saturation Systolic And Diastolic Provider Name and Address Organization Details Last Updated DateTime 09/26/2018 168.91 cm 90 /min 96 % 124/80 mm[Hg] Eunice Jesse [facility] 09/26/2018 11:17:24 Date Recorded Heart rate Provider Name an d Address Organization Details Last Updated DateTime 10/08/2018 84 /min Samina Lama NP, S [address] [place] [address], [phone], [facility] 10/08/2018 11:28:37 Date Recorded Body height Oxygen saturation Heart rate Body temperature Systolic And Diastolic Provider Name and Address Organization Details Last Updated DateTime 9 168.91 cm 97 % 112 /min 98.2 [degF] 142/86 mm[Hg] Taina Hanson [facility] 9 11:17:37 Date Recorded Heart rate Provider Name an d Address Organization Details Last Updated DateTime 10/19/2018 80 /min Samina Lama NP, S [address] [place] [address], [phone], [facility] 10/19/2018 12:04:58 Date Recorded Body height Heart rate Oxygen saturation Systolic And Diastolic Provider Name and Address Organization Details Last Updated DateTime 10/19/2018 168.91 cm 105 /min 98 % 140/80 mm[Hg] Taina Hanson [facility] 10/19/2018 11:45:01 Date Recorded Body height Body mass index (BMI) Body weight Oxygen saturation Heart rate Systolic And Diastolic Provider Name and Address Organization Details Last Updated DateTime 9 168.91 cm 31.1 kg/m2 11303.6 7 g 97 % 97 /min 120/90 mm[Hg] Dahiana Ha [facility] 9 11:56:24 Social History Question Answer Notes LastModified by Organizat ion Details LastModified Time Tobacco Smoking Status Former Smoker Not Available [facility] 07/07/2020 03:36:24 What Was The Date Of Your Most Recent Tobacco Screening? 12/04/2018 [id number] Information not available 07/07/2020 Sex: Unknown Functional [...] virus, quadrivalent, preservative 8 completed Eunice Molina [facility] Internal Medicine 09/26/2018 11:16:26 Past Encounters Encounter ID Performer Location Encounter Start Date Encounter Closed Date Diagnosis/Indication Diagnosis SNOMED-CT Code Diagnosis ICD10 Code Diagnosis IMO Codes Diagnosis Note [id number] Deny Saleh [facility] Internal Medicine [address] [place] [address],[place] [address] 02/07/2018 11:02:27 02/07/2018 16:46:02 Anxiety 70667253 F41.9 Nail changes 710609105 L 60.9 Abdominal aortic aneurysm 650978328 I71.4 CT 11/2017, no changes 2017, 2.85 cm Aortic david nosis, non-rheumatic 004835413 I35.0 stable Gastroesop hageal reflux disease 536491908 K21.9 d/c harold mints, call if persists Insomnia 256318482 G47.0 0 review proper sleep hygiene be more active during day avoid naps [id number] Deny Saleh [facility] Internal Medicine [address] [facility],[place] [address] 03/16/2018 11:29:23 03/20/2018 08:12:01 Dehydration 22235500 E86.0 Gastroenteritis 06012352 K52.9 Aortic valve stenosis 60 385167 I35.0 stable, follow [id number] Deny Saleh [facility] Internal [facility] [address] [facility],[place] [address] 05/16/2018 13:23:14 05/16/2018 14:06:44 Anxiety 42787495 F41.9 BID lorazepam helps Aortic valve stenosis 60 659989 I35.0 stable, echo 05/31/2017 Active or passive immunization 807363774 Z23 Abdominal aortic aneurysm 197569016 I71.4 CT 11/2017, no changes 2016, 2.85 cm Chronic ob structive pulmonary disease 03063463 J44.9 Non smoker X years, asymptomat ic Diverticular disease 397 034222 K57.90 no recent flare [id number] Deny Saleh [facility] Medicine [address] [facility],[place] [address] 05/29/2018 11:40:58 05/29/2018 16:52:51 Aortic valve stenosis 76958364 I35.0 stable, echo 05/31/2017 Anxiety 26735685 F41.9 BID lorazepam helps, discussed current fears re: Constipation 38419323 K5 9.00 [id number] [facility] [address] [facility],[place] [address] 08/14/2018 11:20:27 08/14/2018 17:00:16 Anxiety 09304314 F41.9 BID lorazepam helps, discussed current fears Aortic valve stenosis 60 248948 I35.0 stable, echo 05/31/2017 Diverticulitis 065251765 K57.92 Increased frequency of urination 056115751 R35.0 [id number] Deny Saleh [facility] [address] [facility],[place] [address] 08/20/2018 11:12:33 08/20/2018 12:20:46 Anxiety 51779613 F41.9 BID alprazolam helps, discussed current fears Diverticulitis 781973274 K57.92 Aortic valve stenosis 60 691885 I35.0 stable, echo 05/31/2017 Family problems 71018969 4 Z63.79 Suggest therapy, names provided. Pt agrees [id number] Deny SawyerGeremias Delfino [facility] Internal [facility] [address] [facility], [place] [address] 09/12/2018 10:19:31 09/12/2018 20:18:16 Abdominal aortic aneurysm 196022781 I71.4 CT 11/2017, no changes 2016, 2.85 cm Chronic ob structive pulmonary disease 90589849 J44.9 Non smoker X years, asymptomat ic Anxiety 95499294 F41.9 BID alprazolam helps, discussed current fears Aortic valve stenosis 60 179741 I35.0 stable, echo 05/31/2017 [id number] Deny Eddydelfina [facility] [address] [facility], [place] [address] 09/21/2018 14:26:58 09/25/2018 11:17:00 Anxiety 42168700 F41.9 discussed current fears again, see below Aortic valve stenosis 60 215161 I35.0 [id number] Deny SawyerGeremias NunudelfinaLos [facility] [address] [facility], [place] [address] 09/26/2018 11:12:05 09/26/2018 13:02:53 Hypertensive disorder 57450146 I10 Chronic ob structive pulmonary disease 98206225 J44.9 Non smoker X years, asymptomat ic Anxiety 75818536 F41.9 discussed current fears again, see below Aortic valve stenosis 60 465539 I35[place] [id number] Deny SawyerGeremias NunudelfinaLos [facility] [address] [facility], [place] [address] 10/08/2018 11:12:38 10/08/2018 14:35:10 Cough 51834501 R05 Acute sinusitis 39702286 J01.90 Anxiety 85579347 F41.9 revisited [id number] Deny SawyerGeremias SalehLos [facility] [address] [facility] [place] [address] 10/19/2018 11:41:00 10/19/2018 12:37:34 Diverticulitis 763606135 K57.92 Intolerant Flagyl Anxiety 72067129 F41.9 revisited Aortic valve stenosis 60 468327 I35.0 asymptomat ic Abdominal aortic aneurysm 724571250 I71.4 CT 11/2017, no changes 2016, 2.85 cm Chronic ob structive pulmonary disease 93676099 J44.9 Non sm[place], [place] [id number] Deny Saleh DO [facility] Internal Medicine [address] [facility],[place] [address] 12/04/2018 11:49:58 12/04/2018 16:03:42 Chronic obstructive pulmonary disease 06505290 J44.9 Non smoker X years, asymptomat ic Anxiety 70129033 F41.9 revisited Aortic valve stenosis 60 621704 I35.0 asymptomat ic Health Concerns Section Related Observation LastModified by Organization Detai ls LastModified Time None Recorded Concern Status LastModified by Organization Details LastModified Time None Recorded Advance Directives Directive None Recorded Payers Insurance Date Sequence Insurance Name Policy Number Policy Berry Covered Member ID Berry Member ID Guarantor Name 12/03/2018 2 [facility] (INDEMNITY) [id number] Bella Henley [id number] Bella Henley 12/03/2018 1 MEDICARE B-MT: [employer] Bella Henley [id number] Bella Henley Notes Date Note Type Note Provider Name a nd Address Organization Details Recorded Time 09/21/2018 text/html ROS as noted in the HPI Here with concerns BP had panic attack this am, ambulance was called Checked BP after pts episode was 158/101 Did not start escitalopram prescribed last week , under a great deal of stress Samina Lama NP, S [address] [facility], [place], [address], [facility] 09/21/2018 15:27:56 09/26/2018 [...] complete ADL's Samina Lama NP, [address] [place], [address], [facility] 09/26/2018 11:54:50 10/08/2018 [...] family situation Samina Lama NP, [address] [place], [address], [facility] 10/08/2018 11:49:45 10/19/2018 text/html Yesterday felt ok last night 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 this a.m. also increased voiding w/no dysuria no N/V/D/C, no BRBPR or hematuria Samina Lama NP, [address] [place], [address], [facility] 10/19/2018 12:09:27 12/04/2018 text/html ROS as noted in the HPI Very anxious re: husbands cognitive decline/getting worn out In therapy w/Norberto Willoughbyp Son also recent renal cancer, surgery went well.-but pt. gets worked up over everything pt recently started back on allergy shots some heartburn and post nasal drip Samina Lama NP, [address] [place], [address], [facility] 12/04/2018 12:23:16 OBGyn Episode No OBEpisode recorded.
--- OUTSIDE RECORDS SUMMARY | 2025-07-29 09:47 | XMS_ITS | Encounter Summary ---
Author Organization [facility] Address [address] [place] [address] Care Team Providers Care Operations Processor Name Role Phone Harris Gross MD Primary Care Provider Encounter Details Date Type Department Care Team (Late st Contact Info) Description 02/19/2025 Lab Requisition [facility] - Main Lab [address] [facility] [place] [address] Harris Gross MD [address] [place], [place] [id number] Other senior care (current) drug therapy Social History Tobacco [...] EDT Other senior care (current) drug therapy documented in this encounter Results * (ABNORMAL) Folate (02/19/2025 5:09 AM EDT) Folate >20.0(H) 2.8 - 17.0 ng/ml LAB CHEMISTRY METHOD 02/19/2025 8:26 AM EDT [facility]) [facility] Blood Venous blood specimen / Unknown Venipuncture / Unknown 02/19/2025 5:09 AM EDT 02/19/2025 6:45 AM EDT Harris Gross MD LAB BLOOD ORDERABLES Final Resul t [facility]) [facility] [address] [place] [address], documented in this encounter Visit Diagnoses Diagnosis Other senior care (current) drug therapy documented in this encounter Care Teams Operations Processor Relationship Specialty Start Date End Date Harris Gross MD [address] [place] [address] [address] [place] [address] PCP - General Geriatric Medicine 02/13/25 documented as of this encounter
== END 2025-07-29 09:51 | disposition home or self-care (01) ==
LOC: HO.HOS 09:03
PROVIDERS: PCP Internal Medicine
DX: S52.501A Unspecified fracture of the lower end of right radius, initial encounter for closed fracture (principal)
CPT/HCPCS: 99213

== ENCOUNTER → 2025-07-29 09:20 | Outpatient (BNV) | payer MEDICARE, OTHER, SELFPAY | PROVIDERS: PCP Internal Medicine; Visit Provider Radiology Diagnostic Radiology | DX: M19.031 Primary osteoarthritis, right wrist (principal); M85.841 Other specified disorders of bone density and structure, right hand | CPT/HCPCS: 73110 ==

== ENCOUNTER 2025-08-09 07:45 | Outpatient (REF) | payer MEDICARE, OTHER, SELFPAY ==
--- NOTE | ~2025-08-09 | CT_ITS ---
CLINICAL HISTORY: G91.9 - Hydrocephalus, unspecified --- Additional Notes or Special Instructions: HAVING AN XRAY ASWELL CT head without contrast Comparison: 06/17/2025 Findings: Nonprogressive, prominent/enlarged ventricles (right temporal horn measures up to 12 mm in width versus 13 mm previously, and left temporal horn measures up to 9 mm in width versus 12 mm previously), disproportionate to the cerebral hemispheric sulci due to normal pressure hydrocephalus versus deep cerebral hemispheric volume loss. Two perivascular spaces versus old lacunar infarcts in the inferior aspects of the lentiform nuclei and an old right thalamic lacunar infarct. Background of severe cerebral hemispheric white matter hypodensities likely due to small-vessel ischemic disease. No acute intracranial hemorrhage or midline shift. The visualized paranasal sinuses and mastoid air cells are normal. Bilateral cataract surgery. There is no acute fracture. IMPRESSION: 1. No acute intracranial findings. 2. Nonprogressive, prominent/enlarged ventricles (right temporal horn measures up to 12 mm in width versus 13 mm previously, and left temporal horn measures up to 9 mm in width versus 12 mm previously), disproportionate to the cerebral hemispheric sulci due to normal pressure hydrocephalus versus deep cerebral hemispheric volume loss. Correlate clinically. This document has been electronically signed by: Ly Mcclain MD on 08/11/2025 10:52:48
--- NOTE | ~2025-08-09 | XR_ITS ---
EXAMINATION: XR SACRUM COCCYX 2 OR MORE VIEWS HISTORY: W19.XXXA - Unspecified fall, initial encounter COMPARISON: Comparison is made with the prior examination dated 09/09/2010. FINDINGS: Four views of the sacrum and coccyx are submitted. The bones are osteopenic. No definite sacral fracture is seen. There are old healed fractures of the left superior and inferior pubic rami. XR/XR sacrum coccyx min 2V IMPRESSION: Osteopenia. No definite evidence of acute sacral fracture. If this remains a clinical concern, CT or MRI is recommended. Electronically signed by: Anatoliy Elias MD 08/11/2025 08:06 AM NITIN
--- OUTSIDE RECORDS SUMMARY | 2025-08-09 07:47 | XMS_ITS | Encounter Summary ---
Author Organization [facility] Address [address] [place] [address] Care Team Providers Care Soil Expert Name Role Phone Harris Gross MD Primary Care Provider [phone] Encounter Details Date Type Department Care Team (Late st Contact Info) Description 06/06/[address] [facility] - Main Lab 299 [facility] [place] [address] Harris Gross MD [address] [place], [place] [phone] Essential (primary) hypertension; Chronic obstructive pulmonary disease, [...] mmol/L LAB CHEMISTRY METHOD 06/09/2025 11:53 AM [facility] Potassium 4.4 3.5 - 5.5 mmol/L LAB CHEMISTRY METHOD 06/09/2025 11:53 AM [facility] Chloride 104 96 - 110 mmol/L LAB CHEMISTRY METHOD 06/09/2025 11:53 AM [facility] CO2 29 21 - 32 mmol/L LAB CHEMISTRY METHOD 06/09/2025 11:53 AM [facility] Anion Gap 5 3 - 11 LAB CHEMISTRY METHOD 06/09/2025 11:53 AM [facility] Glucose 73 70 - 100 mg/dL LAB CHEMISTRY METHOD 06/09/2025 11:53 AM [facility] BUN 26(H) 5 - 25 mg/dL LAB CHEMISTRY METHOD 06/09/2025 11:53 AM [facility] Creatinine 0.93 0.50 - 1.10 mg/dL LAB CHEMISTRY METHOD 06/09/2025 11:53 AM [facility] eGFR 61 >=60 mL/min/1. 73m2 LAB CHEMISTRY METHOD 06/09/2025 11:53 AM [facility] Comment:Calculation based on the Chronic Kidney Disease Epidemiology Collaboration (CKD-EPI) equation refit without adjustment for race. BUN/Creatinine Ratio 28.0 LAB CHEMISTRY METHOD 06/09/2025 11:53 AM [facility] Calcium 9.1 8.5 - 10.5 mg/dL LAB CHEMISTRY METHOD 06/09/2025 11:53 AM [facility] Blood Venous blood specimen / Unknown Venipuncture / Unknown 06/09/2025 4:55 AM EDT 06/09/2025 10:20 AM EDT Harris Gross MD LAB BLOOD ORDERABLES Final Resul t [facility] [address] [place] [address], * (ABNORMAL) Complete blood count (06/09/2025 4:55 AM EDT) WBC 3.1(L) 4.8 - 10.8 K/mcL LAB HEMETOLOGY METHOD 06/09/2025 11:14 AM EDT [facility] RBC 2.80(L) 3.80 - 4.80 M/mcL LAB HEMETOLOGY METHOD 06/09/2025 11:14 AM EDT [facility] Hemoglobin 8.0(L) 11.5 - 16.0 g/dL LAB HEMETOLOGY METHOD 06/09/2025 11:14 AM [facility] Hematocrit 26.2(L) 35.0 - 47.0 % LAB HEMETOLOGY METHOD 06/09/2025 11:14 AM EDT [facility] MCV 94.9 79.0 - 98.0 FL LAB HEMETOLOGY METHOD 06/09/2025 11:14 AM EDT [facility] MCH 29.0 27.0 - 32.0 pcg LAB HEMETOLOGY METHOD 06/09/2025 11:14 AM [facility] MCHC 30.5(L) 32.0 - 37.0 g/dL LAB HEMETOLOGY METHOD 06/09/2025 11:14 AM EDT [facility] RDW 18.4(H) 11.0 - 15.0 % LAB HEMETOLOGY METHOD 06/09/2025 11:14 AM EDT [facility] Platelets 130 130 - 400 K/mcL LAB HEMETOLOGY METHOD 06/09/2025 11:14 AM [facility] MPV 12.1(H) 7.0 - 11.0 FL LAB HEMETOLOGY METHOD 06/09/2025 11:14 AM EDT [facility] NRBC 0.0 <1.0 % LAB HEMETOLOGY METHOD 06/09/2025 11:14 AM EDT [facility] NRBC Absolute 0.00 <0.10 K/mcL LAB HEMETOLOGY METHOD 06/09/2025 11:14 AM EDT [facility] Blood Venous blood specimen / Unknown Venipuncture / Unknown 06/09/2025 4:55 AM EDT 06/09/2025 10:20 AM EDT us Harris Gross MD LAB BLOOD ORDERABLES Final Resul t [facility] [address] [place] [address], documented in this encounter Visit Diagnoses Diagnosis Essential (primary) hypertension Unspecified essential hypertension Chronic obstructive pulmonary disease, unspecified (CMS/HCC V24, CMS/HCC V28) documented in this encounter Care Teams Soil Expert Relationship Specialty Start Date End Date Harris Gross MD [address] [place] [address] [address] [place] [address] PCP - General Geriatric Medicine 02/13/25 documented as of this encounter
--- OUTSIDE RECORDS SUMMARY | 2025-08-09 07:47 | XMS_ITS | Encounter Summary ---
Author Organization [facility] Address [address] [place] [address] Care Team Providers Care Data Processing Supervisor Name Role Phone Harris Gross MD Primary Care Provider [phone] Encounter Details Date Type Department Care Team (Late st Contact Info) Description 05/28/[address] [facility] - Main Lab 299 [facility] [place] [address] Harris Gross MD [address] [place], [place] [phone] Essential (primary) hypertension Social History Tobacco Use [...] LAB CHEMISTRY METHOD 05/29/2025 10:23 AM EDT [facility] Potassium 4.4 3.5 - 5.5 [...] Resul t [facility] [address] [place] [address], * (ABNORMAL) Complete blood count (05/29/2025 6:50 AM EDT) Pathologist [facility] WBC 3.4(L) 4.8 - 10.8 K/mcL LAB [...] HOSPITAL LAB Platelets 135 130 - 400 K/[facility] LAB HEMETOLOGY METHOD 05/29/2025 10:[address] [facility] LAB MPV 12.0(H) 7.0 - 11.0 FL LAB HEMETOLOGY METHOD 05/29/2025 10:[address] [facility] LAB NRBC 0.0 <1.0 % LAB HEMETOLOGY METHOD 05/29/2025 10:[address] [facility] LAB NRBC Absolute 0.00 <0.10 K/[facility] LAB HEMETOLOGY METHOD 05/29/2025 10:07 AM EDT [facility] LAB Blood Venous blood specimen / Unknown Venipuncture / Unknown 05/29/2025 6:50 AM EDT 05/29/2025 9:14 AM EDT Harris Gross MD LAB BLOOD ORDERABLES Final Resul t [facility] [address] [place] [address], documented in this encounter Visit Diagnoses Diagnosis Essential (primary) hypertension Unspecified essential hypertension documented in this encounter Care Teams Data Processing Supervisor Relationship Specialty Start Date End Date Harris Gross MD [address] [place] [address] [address] [place] [address] PCP - General Geriatric Medicine 02/13/25 documented as of this encounter
--- OUTSIDE RECORDS SUMMARY | 2025-08-09 07:47 | XMS_ITS | Encounter Summary ---
Author Organization [facility] Address [address] [place] [address] Care Team Providers Care Art Objects Repairer Name Role Phone Harris Gross MD Primary Care Provider [phone] Encounter Details Date Type Department Care Team (Late st Contact Info) Description 03/06/2025 Lab Requisition [facility] - Main Lab 299 [facility] [address] [place] [address] Harris Gross MD [address] [place], [place] [phone] Altered mental status, unspecified; Dysuria Social History [...] reflex microscopic (03/06/2025 12:00 AM EDT) Specific [place] Urine 1.008 1.003 - 1.030 LAB URINALYSIS [...] 10:34 AM [facility] Bilirubin, Urine Negative Negative LAB URINALYSIS - AUTOMATED METHOD 03/06/2025 10:34 AM [facility] Blood, Urine Negative Negative LAB URINALYSIS - AUTOMATED METHOD 03/06/2025 10:34 AM [facility] Urine Urine specimen obtained by clean catch procedure / Unknown 03/06/2025 03/06/2025 8:51 AM EDT us Harris Gross MD LAB URINE ORDERABLES Final Resul t [facility] [address] [place] [address], * Culture urine (03/06/2025 12:00 AM EDT) Culture, Urine <10,000 CFU/mL gram positive cocci, insignificant count, no further workup 03/07/2025 1:00 PM EDT [facility] Urine Urine specimen obtained by clean catch procedure / Unknown 03/06/2025 03/06/2025 8:51 AM EDT Harris Gross MD LAB MICROBIOLOGY - GENERAL ORDER ROEL Final Result [facility] [address] [place] [address], documented in this encounter Visit Diagnoses Diagnosis Altered mental status, unspecified Dysuria documented in this encounter Care Teams Art Objects Repairer Relationship Specialty Start Date End Date Harris Gross MD [address] [place] [address] [address] [place] [address] PCP - General Geriatric Medicine 02/13/25 documented as of this encounter
--- OUTSIDE RECORDS SUMMARY | 2025-08-09 07:47 | XMS_ITS | Encounter Summary ---
Author Organization [facility] Address [address] [place] [address] Care Team Providers Care Social Work Instructor Name Role Phone Harris Gross MD Primary Care Provider [phone] Encounter Details Date Type Department Care Team (Late st Contact Info) Description 06/13/2025 Lab Requisition [facility] - Main Lab 299 [facility] [place] [address] Harris Gross MD [address] [place], [place] [phone] Essential (primary) hypertension; Chronic obstructive pulmonary disease, [...] mmol/L LAB CHEMISTRY METHOD 06/16/2025 10:31 AM [facility] Potassium 4.3 3.5 - 5.5 mmol/L LAB CHEMISTRY METHOD 06/16/2025 10:31 AM [facility] Chloride 104 96 - 110 mmol/L LAB CHEMISTRY METHOD 06/16/2025 10:31 AM [facility] CO2 28 21 - 32 mmol/L LAB CHEMISTRY METHOD 06/16/2025 10:31 AM [facility] Anion Gap 6 3 - 11 LAB CHEMISTRY METHOD 06/16/2025 10:31 AM [facility] Glucose 77 70 - 100 mg/dL LAB CHEMISTRY METHOD 06/16/2025 10:31 AM [facility] BUN 27(H) 5 - 25 mg/dL LAB CHEMISTRY METHOD 06/16/2025 10:31 AM [facility] Creatinine 0.89 0.50 - 1.10 mg/dL LAB CHEMISTRY METHOD 06/16/2025 10:31 AM [facility] LAB eGFR 64 >=60 mL/min/1. 73m2 LAB CHEMISTRY METHOD 06/16/2025 10:31 AM [facility] LAB Comment:Calculation based on the Chronic Kidney Disease Epidemiology Collaboration (CKD-EPI) equation refit without adjustment for race. BUN/Creatinine Ratio 30.3 LAB CHEMISTRY METHOD 06/16/2025 10:31 AM [facility] Calcium 9.3 8.5 - 10.5 mg/dL LAB CHEMISTRY METHOD 06/16/2025 10:31 AM [facility] Blood Venous blood specimen / Unknown Venipuncture / Unknown 06/16/2025 5:01 AM EDT 06/16/2025 9:03 AM EDT Harris Gross MD LAB BLOOD ORDERABLES Final Resul t [facility] [address] [place] [address], * (ABNORMAL) Complete blood count (06/16/2025 5:01 AM EDT) WBC 3.2(L) 4.8 - 10.8 K/mcL LAB HEMETOLOGY METHOD 06/16/2025 10:06 AM EDT [facility] RBC 2.80(L) 3.80 - 4.80 M/mcL LAB HEMETOLOGY METHOD 06/16/2025 10:06 AM EDT [facility] Hemoglobin 8.3(L) 11.5 - 16.0 g/dL LAB HEMETOLOGY METHOD 06/16/2025 10:06 AM [facility] Hematocrit 27.0(L) 35.0 - 47.0 % LAB HEMETOLOGY METHOD 06/16/2025 10:06 AM EDT [facility] MCV 95.7 79.0 - 98.0 FL LAB HEMETOLOGY METHOD 06/16/2025 10:06 AM EDT [facility] MCH 29.4 27.0 - 32.0 pcg LAB HEMETOLOGY METHOD 06/16/2025 10:06 AM [facility] MCHC 30.7(L) 32.0 - 37.0 g/dL LAB HEMETOLOGY METHOD 06/16/2025 10:06 AM EDT [facility] RDW 17.9(H) 11.0 - 15.0 % LAB HEMETOLOGY METHOD 06/16/2025 10:06 AM EDT [facility] Platelets 119(L) 130 - 400 K/mcL LAB HEMETOLOGY METHOD 06/16/2025 10:06 AM [facility] MPV 12.1(H) 7.0 - 11.0 FL LAB HEMETOLOGY METHOD 06/16/2025 10:06 AM EDT [facility] NRBC 0.0 <1.0 % LAB HEMETOLOGY METHOD 06/16/2025 10:06 AM EDT [facility] NRBC Absolute 0.00 <0.10 K/mcL LAB HEMETOLOGY METHOD 06/16/2025 10:06 AM EDT [facility] Blood Venous blood specimen / Unknown Venipuncture / Unknown 06/16/2025 5:01 AM EDT 06/16/2025 9:03 AM EDT us Harris Gross MD LAB BLOOD ORDERABLES Final Resul t [facility] [address] [place] [address], documented in this encounter Visit Diagnoses Diagnosis Essential (primary) hypertension Unspecified essential hypertension Chronic obstructive pulmonary disease, unspecified (CMS/HCC V24, CMS/HCC V28) documented in this encounter Care Teams Social Work Instructor Relationship Specialty Start Date End Date Harris Gross MD [address] [place] [address] [address] [place] [address] PCP - General Geriatric Medicine 02/13/25 documented as of this encounter
--- OUTSIDE RECORDS SUMMARY | 2025-08-09 07:47 | XMS_ITS | Encounter Summary ---
Author Organization [facility] Address [address] [place] [address] Care Team Providers Care Chief Knowledge Officer Name Role Phone Harris Gross MD Primary Care Provider [phone] Encounter Details Date Type Department Care Team (Late st Contact Info) Description 05/21/2025 Lab Requisition [facility] - Main Lab 299 [facility] [place] [address] Harris Gross MD [address] [place], [place] [phone] Essential (primary) hypertension; Chronic obstructive pulmonary disease, [...] Resul t [facility] [address] [place] [address], * (ABNORMAL) Complete blood count (05/21/2025 4:56 AM EDT) WBC 3.1(L) 4.8 - 10.8 K/[facility] LAB HEMETOLOGY METHOD 05/21/2025 10[facility] RBC 2.50(L) 3.80 - 4.80 M/mcL LAB HEMETOLOGY METHOD 05/21/2025 10:50 [facility] Hemoglobin 6.9(L) 11.5 - 16.0 g/dL LAB HEMETOLOGY METHOD 05/21/2025 10:50 AM [facility] Hematocrit 22.8(L) 35.0 - 47.0 [...] Resul t [facility] [address] [place] [address], documented in this encounter Visit Diagnoses Diagnosis Essential (primary) hypertension Unspecified essential hypertension Chronic obstructive pulmonary disease, unspecified (CMS/HCC V24, CMS/HCC V28) Dizziness and giddiness documented in this encounter Care Teams Chief Knowledge Officer Relationship Specialty Start Date End Date Harris Gross MD [address] [place] [address] [address] [place] [address] PCP - General Geriatric Medicine 02/13/25 documented as of this encounter
--- OUTSIDE RECORDS SUMMARY | 2025-08-09 07:47 | XMS_ITS | Encounter Summary ---
Author Organization [facility] Address [address] [place] [address] Care Team Providers Care Floor Trader Name Role Phone Harris Gross MD Primary Care Provider [phone] Encounter Details Date Type Department Care Team (Late st Contact Info) Description 05/22/2025 Lab Requisition [facility] - Main Lab 299 [facility] [place] [address] Harris Gross MD [address] [place], [place] [phone] Essential (primary) hypertension; Anemia, unspecified Social History [...] LAB CHEMISTRY METHOD 05/22/2025 10:28 AM EDT [facility] Potassium 3.9 3.5 - 5.5 mmol/L LAB CHEMISTRY METHOD 05/22/2025 10:28 AM [facility] Chloride 104 96 - 110 mmol/L LAB CHEMISTRY METHOD 05/22/2025 10:28 AM [facility] CO2 29 21 - 32 mmol/L LAB CHEMISTRY METHOD 05/22/2025 10:28 AM [facility] Anion Gap 5 3 - 11 LAB CHEMISTRY METHOD 05/22/2025 10:28 AM [facility] Glucose 66(L) 70 - 100 mg/dL LAB CHEMISTRY METHOD 05/22/2025 10:28 AM [facility] BUN 23 5 - 25 mg/dL LAB CHEMISTRY METHOD 05/22/2025 10:28 AM [facility] Creatinine 0.91 0.50 - 1.10 mg/dL LAB CHEMISTRY METHOD 05/22/2025 10:28 AM [facility] LAB eGFR 62 >=60 mL/min/1. 73m2 LAB CHEMISTRY METHOD 05/22/2025 10:28 AM [facility] LAB Comment:Calculation based on the Chronic Kidney Disease Epidemiology Collaboration (CKD-EPI) equation refit without adjustment for race. BUN/Creatinine Ratio 25.3 LAB CHEMISTRY METHOD 05/22/2025 10:28 AM [facility] Calcium 8.9 8.5 - 10.5 mg/dL LAB CHEMISTRY METHOD 05/22/2025 10:28 AM [facility] LAB Blood Venous blood specimen / Unknown Venipuncture / Unknown 05/22/2025 5:27 AM EDT 05/22/2025 9:40 AM EDT us Harris Gross MD LAB BLOOD ORDERABLES Final Resul t [facility] [address] [place] [address], * (ABNORMAL) Complete blood count (05/22/2025 5:27 AM EDT) [facility] Signature WBC 2.8(L) 4.8 - 10.8 K/mcL LAB HEMETOLOGY METHOD 05/22/2025 11:24 AM [facility] RBC 2.50(L) 3.80 - 4.80 M/mcL LAB HEMETOLOGY METHOD 05/22/2025 11:24 AM [facility] Hemoglobin 7.0(L) 11.5 - 16.0 g/dL LAB HEMETOLOGY METHOD 05/22/2025 11:24 AM [facility] LAB Hematocrit 23.2(L) 35.0 - 47.0 % LAB HEMETOLOGY METHOD 05/22/2025 11:24 AM [facility] LAB MCV 91.3 79.0 - 98.0 FL LAB HEMETOLOGY METHOD 05/22/2025 11:24 AM [facility] MCH 27.6 27.0 - 32.0 pcg LAB HEMETOLOGY METHOD 05/22/2025 11:24 AM [facility] LAB MCHC 30.2(L) 32.0 - 37.0 g/dL LAB HEMETOLOGY METHOD 05/22/2025 11:24 AM [facility] LAB RDW 15.0 11.0 - 15.0 % LAB HEMETOLOGY METHOD 05/22/2025 11:24 AM [facility] LAB Platelets 145 130 - 400 K/mcL LAB HEMETOLOGY METHOD 05/22/2025 11:24 AM [facility] LAB MPV 11.9(H) 7.0 - 11.0 FL LAB HEMETOLOGY METHOD 05/22/2025 11:24 AM [facility] NRBC 0.0 <1.0 % LAB HEMETOLOGY METHOD 05/22/2025 11:24 AM EDT [facility] NRBC Absolute 0.00 <0.10 K/mcL LAB HEMETOLOGY METHOD 05/22/2025 11:24 AM EDT [facility] Blood Venous blood specimen / Unknown Venipuncture / Unknown 05/22/2025 5:27 AM EDT 05/22/2025 9:40 AM EDT us Harris Gross MD LAB BLOOD ORDERABLES Final Resul t [facility] [address] [place] [address], documented in this encounter Visit Diagnoses Diagnosis Essential (primary) hypertension Unspecified essential hypertension Anemia, unspecified documented in this encounter Care Teams Floor Trader Relationship Specialty Start Date End Date Harris Gross MD [address] [place] [address] [address] [place] [address] PCP - General Geriatric Medicine 02/13/25 documented as of this encounter
--- OUTSIDE RECORDS SUMMARY | 2025-08-09 07:47 | XMS_ITS | Encounter Summary ---
Author Organization [facility] Address [address] [place] [address] Care Team Providers Care Scallop Shucker Name Role Phone Harris Gross MD Primary Care Provider Encounter Details Date Type Department Care Team (Late st Contact Info) Description 05/30/2025 Lab Requisition [facility] - Main Lab 299 [facility] [place] [address] Harris Gross MD [address] [place], [place] [phone] Essential (primary) hypertension; Chronic obstructive pulmonary disease, [...] mmol/L LAB CHEMISTRY METHOD 06/02/2025 12:46 PM [facility] Potassium 4.0 3.5 - 5.5 mmol/L LAB CHEMISTRY METHOD 06/02/2025 12:46 PM [facility] Chloride 106 96 - 110 mmol/L LAB CHEMISTRY METHOD 06/02/2025 12:46 PM [facility] CO2 27 21 - 32 mmol/L LAB CHEMISTRY METHOD 06/02/2025 12:46 PM [facility] Anion Gap 7 3 - 11 LAB CHEMISTRY METHOD 06/02/2025 12:46 PM [facility] Glucose 69(L) 70 - 100 mg/dL LAB CHEMISTRY METHOD 06/02/2025 12:46 PM [facility] BUN 21 5 - 25 mg/dL LAB CHEMISTRY METHOD 06/02/2025 12:46 PM [facility] Creatinine 0.86 0.50 - 1.10 mg/dL LAB CHEMISTRY METHOD 06/02/2025 12:46 PM [facility] LAB eGFR 67 >=60 mL/min/1. 73m2 LAB CHEMISTRY METHOD 06/02/2025 12:46 PM [facility] LAB Comment:Calculation based on the Chronic Kidney Disease Epidemiology Collaboration (CKD-EPI) equation refit without adjustment for race. BUN/Creatinine Ratio 24.4 LAB CHEMISTRY METHOD 06/02/2025 12:46 PM [facility] Calcium 9.0 8.5 - 10.5 mg/dL LAB CHEMISTRY METHOD 06/02/2025 12:46 PM [facility] Blood Venous blood specimen / Unknown Venipuncture / Unknown 06/02/2025 4:54 AM EDT 06/02/2025 10:56 AM EDT Harris Gross MD LAB BLOOD ORDERABLES Final Resul t [facility] [address] [place] [address], * (ABNORMAL) Complete blood count (06/02/2025 4:54 AM EDT) WBC 3.1(L) 4.8 - 10.8 K/mcL LAB HEMETOLOGY METHOD 06/02/2025 1:02 PM EDT [facility] LAB RBC 2.70(L) 3.80 - 4.80 M/mcL LAB HEMETOLOGY METHOD 06/02/2025 1:02 PM EDT [facility] Hemoglobin 7.8(L) 11.5 - 16.0 g/dL LAB HEMETOLOGY METHOD 06/02[facility]2025 [facility] Hematocrit 25.7(L) 35.0 - 47.0 % LAB HEMETOLOGY METHOD 06/02/2025 1:02 [facility] MCV 95.9 79.0 - 98.0 FL LAB HEMETOLOGY METHOD 06/02/2025 1:02 PM EDT [facility] LAB MCH 29.1 27.0 - 32.0 pcg LAB HEMETOLOGY METHOD 06/02/2025 1:02 PM [facility] MCHC 30.4(L) 32.0 - 37.0 g/dL LAB HEMETOLOGY METHOD 06/02/2025 1:02 PM EDT [facility] LAB RDW 17.8(H) 11.0 - 15.0 % LAB HEMETOLOGY METHOD 06/02/2025 1:02 PM EDT [facility] Platelets 109(L) 130 - 400 K/mcL LAB HEMETOLOGY METHOD 06/02/2025 1:02 [facility] MPV 12.3(H) 7.0 - 11.0 FL LAB HEMETOLOGY METHOD 06/02/2025 1:02 PM EDT [facility] NRBC 0.0 <1.0 % LAB HEMETOLOGY METHOD 06/02/2025 1:02 PM EDT [facility] LAB NRBC Absolute 0.00 <0.10 K/mcL LAB HEMETOLOGY METHOD 06/02/2025 1:02 PM EDT [facility] LAB Blood Venous blood specimen / Unknown Venipuncture / Unknown 06/02/2025 4:54 AM EDT 06/02/2025 10:56 AM EDT us Harris Gross MD LAB BLOOD ORDERABLES Final Resul t [facility] [address] [place] [address], documented in this encounter Visit Diagnoses Diagnosis Essential (primary) hypertension Unspecified essential hypertension Chronic obstructive pulmonary disease, unspecified (CMS/HCC V24, CMS/HCC V28) documented in this encounter Care Teams Scallop Shucker Relationship Specialty Start Date End Date Harris Gross MD [address] [place] [address] [address] [place] [address] PCP - General Geriatric Medicine 02/13/25 documented as of this encounter
--- OUTSIDE RECORDS SUMMARY | 2025-08-09 07:47 | XMS_ITS | Encounter Summary ---
Author Organization [facility] Address [address] [place] [address] Care Team Providers Care Cap Jewel Plate Assembler Name Role Phone Harris Gross MD Primary Care Provider [phone] Encounter Details Date Type Department Care Team (Late st Contact Info) Description 05/25/2025 Lab Requisition [facility] - Main Lab 299 [facility] [place] [address] Harris Gross MD [address] [place], [place] [phone] Essential (primary) hypertension; Chronic obstructive pulmonary disease, [...] Final Resul t [facility] [address] [place] [address], * Iron and TIBC (05/26/2025 4:52 AM [...] Final Resul t [facility] [address] [place] [address], * (ABNORMAL) Basic metabolic panel (05/26/2025 4:52 [...] Final Resul t [facility] [address] [place] [address], * (ABNORMAL) Complete blood count (05/26/2025 4:52 [...] LAB NRBC Absolute 0.00 <0.10 K/mcL [facility] 05/26/2025 12:53 PM EDT [facility] Blood Venous blood specimen / Unknown Venipuncture / Unknown 05/26/2025 4:52 AM EDT 05/26/2025 10:18 AM EDT Harris Gross MD LAB BLOOD ORDERABLES Final Resul t [facility] [address] [place] [address], documented in this encounter Visit Diagnoses Diagnosis Essential (primary) hypertension Unspecified essential hypertension Chronic obstructive pulmonary disease, unspecified (CMS/HCC V24, CMS/HCC V28) Gastro-esophageal reflux disease without esophagitis Anemia, unspecified documented in this encounter Care Teams Cap Jewel Plate Assembler Relationship Specialty Start Date End Date Harris Gross MD [address] [place] [address] [address] [place] [address] PCP - General Geriatric Medicine 02/13/25 documented as of this encounter
--- OUTSIDE RECORDS SUMMARY | 2025-08-09 07:48 | XMS_ITS | Encounter Summary ---
Author Organization [facility] Address [address] [place] [address] Care Team Providers Care Automotive Parts Advisor Name Role Phone Harris Gross MD Primary Care Provider [phone] Encounter Details Date Type Department Care Team (Late st Contact Info) Description 05/30/2025 Lab Requisition [facility] - Main Lab [address] [facility] [place] [address] Harris Gross MD [address] [place], [place] [phone] Frequency of micturition Social History Tobacco Use [...] reflex microscopic (05/29/2025 8:00 AM EDT) Specific [place] Urine 1.016 1.003 - 1.030 LAB URINALYSIS - AUTOMATED METHOD 05/30/2025 8:36 AM [facility] pH, Urine 5.5 5.0 - 8.0 pH LAB URINALYSIS - AUTOMATED METHOD 05/30/2025 8:36 AM [facility] Leukocytes, Urine Negative Negative LAB URINALYSIS - AUTOMATED METHOD 05/30/2025 8:36 AM [facility] Nitrite, Urine Negative Negative LAB URINALYSIS - AUTOMATED METHOD 05/30/2025 8:36 AM [facility] Protein, Urine Negative <=Trace mg/dL LAB URINALYSIS - AUTOMATED METHOD 05/30/2025 8:36 AM [facility] Glucose, Urine Negative Negative mg/dL LAB URINALYSIS - AUTOMATED METHOD 05/30/2025 8:36 AM [facility] Ketones, Urine Negative Negative mg/dL LAB URINALYSIS - AUTOMATED METHOD 05/30/2025 8:36 AM [facility] Urobilinogen, Urine 0.2 0.2 - 1.0 mg/dL LAB URINALYSIS - AUTOMATED METHOD 05/30/2025 8:36 AM [facility] Bilirubin, Urine Negative Negative LAB URINALYSIS - AUTOMATED METHOD 05/30/2025 8:36 AM [facility] Blood, Urine Negative Negative LAB URINALYSIS - AUTOMATED METHOD 05/30/2025 8:36 AM [facility] Urine Urine specimen obtained by clean catch procedure / Unknown Non-blood Collection / Unknown 05/29/2025 8:00 AM EDT 05/30/2025 8:05 AM EDT us Harris Gross MD LAB URINE ORDERABLES Final Resul t [facility] [address] [place] [address], * (ABNORMAL) Culture urine (05/29/2025 8:00 AM EDT) Culture, Urine 10,000-49,000 CFU/mL Streptococcus viridans group(A) 06/03/2025 8:59 AM EDT [facility] Comment: Susceptibility testing not [...] AM EDT 05/30/2025 8:05 AM EDT Narrative [facility] - 06/03/2025 8:59 AM EDT Additional colony types present in insignificant amounts. Harris Gross MD LAB MICROBIOLOGY - GENERAL ORDER ROEL Final Result [facility] [address] [place] [address], documented in this encounter Visit Diagnoses Diagnosis Frequency of micturition Urinary frequency documented in this encounter Care Teams Automotive Parts Advisor Relationship Specialty Start Date End Date Harris Gross MD [address] [place] [address] [address] [place] [address] PCP - General Geriatric Medicine 02/13/25 documented as of this encounter
--- OUTSIDE RECORDS SUMMARY | 2025-08-09 07:48 | XMS_ITS | Clinical Summary ---
Author Organization [address] Address [address] [place] [address] Phone Care Team Providers Care Trouble Shooter Name Role Phone Harris Gross MD Primary Care Provider Encounters Date Type Department Care Team Description 06/21/2025 Lab Requisition [facility] Lab [address] [place] [phone] Harris Gross MD Essential (primary) hypertension; Chronic obstructive pulmonary disease, unspecified (CMS/HCC V24, CMS/HCC V28) 06/13/2025 Lab Requisition [facility] Lab [address] [place] [phone] Harris Gross MD Essential (primary) hypertension; Chronic obstructive pulmonary disease, unspecified (CMS/HCC V24, CMS/HCC V28) 06/06/2025 Lab Requisition [facility] Lab [address] [place] [phone] Harris Gross MD Essential (primary) hypertension; Chronic obstructive pulmonary disease, unspecified (CMS/HCC V24, CMS/HCC V28) 05/30/2025 Lab Requisition [facility] Lab [address] [place] [phone] Harris Gross MD Essential (primary) hypertension; Chronic obstructive pulmonary disease, unspecified (CMS/HCC V24, CMS/HCC V28) 05/30/2025 Lab Requisition [facility] Lab [address] [place] [phone] Harris Gross MD Frequency of micturition 05/28/2025 Lab Requisition [facility] Lab [address] [place] [phone] Harris Gross MD Essential (primary) hypertension 05/25/2025 Lab Requisition [facility] Lab [address] [place] [phone] Harris Gross MD Essential (primary) hypertension; Chronic obstructive pulmonary disease, unspecified (CMS/HCC V24, CMS/HCC V28); Gastro-esophageal reflux disease without esophagitis; Anemia, unspecified 05/22/2025 Lab Requisition [facility] Lab [address] [place] [phone] Harris Gross MD Essential (primary) hypertension; Anemia, unspecified 05/21/2025 Lab Requisition [facility] Lab [address] [place] [phone] Harris Gross MD Essential (primary) hypertension; Chronic [...] K/mcL LAB HEMETOLOGY METHOD 06/16/2025 10:06 AM [facility] RBC 2.80(L) 3.80 - 4.80 M/mcL LAB HEMETOLOGY METHOD 06/16/2025 10:06 AM [facility] Hemoglobin 8.3(L) 11.5 - 16.0 g/dL LAB HEMETOLOGY METHOD 06/16/2025 10:06 AM [facility] Hematocrit 27.0(L) 35.0 - 47.0 % LAB HEMETOLOGY METHOD 06/16/2025 10:06 AM [facility] MCV 95.7 79.0 - 98.0 FL LAB HEMETOLOGY METHOD 06/16/2025 10:06 AM EDT [facility] MCH 29.4 27.0 - 32.0 pcg LAB HEMETOLOGY METHOD 06/16/2025 10:06 AM EDT [facility] MCHC 30.7(L) 32.0 - 37.0 g/dL LAB HEMETOLOGY METHOD 06/16/2025 10:06 AM EDT [facility] RDW 17.9(H) 11.0 - 15.0 % LAB HEMETOLOGY METHOD 06/16/2025 10:06 AM T [facility] Platelets 119(L) 130 - 400 K/mcL LAB HEMETOLOGY METHOD 06/16/2025 10:06 AM T [facility] MPV 12.1(H) 7.0 - 11.0 FL LAB HEMETOLOGY METHOD 06/16/2025 10:06 AM EDT [facility] NRBC 0.0 <1.0 % LAB HEMETOLOGY METHOD 06/16/2025 10:06 AM [facility] NRBC Absolute 0.00 <0.10 K/mcL LAB HEMETOLOGY METHOD 06/16/2025 10:06 AM [facility] Blood Venous blood specimen / Unknown Venipuncture / Unknown 06/16/2025 5:01 AM EDT 06/16/2025 9:03 AM EDT us Harris Gross MD LAB BLOOD ORDERABLES Final Resul t [facility] [address] [place] [address], * (ABNORMAL) Basic metabolic panel (06/16/2025 5:01 AM EDT) Only the most recent of6 resultswithin the time period is included. [facility] Sodium 138 133 - 145 mmol/L LAB CHEMISTRY METHOD 06/16/2025 10:31 AM [facility] Potassium 4.3 3.5 - 5.5 mmol/L LAB CHEMISTRY METHOD 06/16/2025 10:31 AM [facility] Chloride 104 96 - 110 mmol/L LAB CHEMISTRY METHOD 06/16/2025 10:31 AM [facility] CO2 28 21 - 32 mmol/L LAB CHEMISTRY METHOD 06/16/2025 10:31 AM [facility] Anion Gap 6 3 - 11 LAB CHEMISTRY METHOD 06/16/2025 10:31 AM [facility] Glucose 77 70 - 100 mg/dL LAB CHEMISTRY METHOD 06/16/2025 10:31 AM [facility] BUN 27(H) 5 - 25 mg/dL LAB CHEMISTRY METHOD 06/16/2025 10:31 AM [facility] Creatinine 0.89 0.50 - 1.10 mg/dL LAB CHEMISTRY METHOD 06/16/2025 10:31 AM [facility] eGFR 64 >=60 mL/min/1. 73m2 LAB CHEMISTRY METHOD 06/16/2025 10:31 AM [facility] Comment:Calculation based on the Chronic Kidney Disease Epidemiology Collaboration (CKD-EPI) equation refit without adjustment for race. BUN/Creatinine Ratio 30.3 LAB CHEMISTRY METHOD 06/16/2025 10:31 AM [facility] Calcium 9.3 8.5 - 10.5 mg/dL LAB CHEMISTRY METHOD 06/16/2025 10:31 AM [facility] Blood Venous blood specimen / Unknown Venipuncture / Unknown 06/16/2025 5:01 AM EDT 06/16/2025 9:03 AM EDT us Harris Gross MD LAB BLOOD ORDERABLES Final Resul t [facility] [address] [place] [address], [place] [phone] * Urinalysis with reflex microscopic (05/29/2025 8:00 AM EDT) Specific [place] Urine 1.016 1.003 - 1.030 LAB URINALYSIS - AUTOMATED METHOD 05/30/2025 8:36 AM [facility] pH, Urine 5.5 5.0 - 8.0 pH LAB URINALYSIS - AUTOMATED METHOD 05/30/2025 8:36 AM [facility] Leukocytes, Urine Negative Negative LAB URINALYSIS - AUTOMATED METHOD 05/30/2025 8:36 AM [facility] Nitrite, Urine Negative Negative LAB URINALYSIS - AUTOMATED METHOD 05/30/2025 8:36 AM [facility] Protein, Urine Negative <=Trace mg/dL LAB URINALYSIS - AUTOMATED METHOD 05/30/2025 8:36 AM [facility] Glucose, Urine Negative Negative mg/dL LAB URINALYSIS - AUTOMATED METHOD 05/30/2025 8:36 AM [facility] Ketones, Urine Negative Negative mg/dL LAB URINALYSIS - AUTOMATED METHOD 05/30/2025 8:36 AM [facility] Urobilinogen, Urine 0.2 0.2 - 1.0 mg/dL LAB URINALYSIS - AUTOMATED METHOD 05/30/2025 8:36 AM [facility] Bilirubin, Urine Negative Negative LAB URINALYSIS - AUTOMATED METHOD 05/30/2025 8:36 AM [facility] Blood, Urine Negative Negative LAB URINALYSIS - AUTOMATED METHOD 05/30/2025 8:36 AM [facility] Urine Urine specimen obtained by clean catch procedure / Unknown Non-blood Collection / Unknown 05/29/2025 8:00 AM EDT 05/30/2025 8:05 AM EDT us Harris Gross MD LAB URINE ORDERABLES Final Resul t Performing Organization Address City/[facility]/ZIP Co de Phone Number [facility] [address] [place] [address], [place] [phone] * (ABNORMAL) Culture urine (05/29/2025 8:00 AM EDT) Culture, Urine 10,000-49,000 CFU/mL Streptococcus viridans group(A) 06/03/2025 8:59 AM EDT [facility] Comment: Susceptibility testing not routinely performed. If further therapeutic information is required, please consult an infectious disease specialist. The organism value for this result has been updated. These results have been appended to the previously preliminary verified report. Urine Urine specimen obtained by clean catch procedure / Unknown Non-blood Collection / Unknown 05/29/2025 8:00 AM EDT 05/30/2025 8:05 AM EDT Narrative [facility] - 06/03/2025 8:59 AM EDT Additional colony types present in insignificant amounts. us Harris Gross MD LAB MICROBIOLOGY - GENERAL ORDER ROEL Final Result Performing Organization Address [facility] Co de Phone Number [facility] [address] [place] [address], [place] [phone] * Iron and TIBC (05/26/2025 4:52 AM EDT) Iron 88 40 - 150 mcg/dL LAB CHEMISTRY METHOD 05/26/2025 12:56 PM EDT [facility] TIBC 358 250 - 450 mcg/dL LAB CHEMISTRY METHOD 05/26/2025 12:56 PM EDT [facility] Iron Saturation 25 15 - 50 % LAB CHEMISTRY METHOD 05/26/2025 12:56 PM EDT [facility] Blood Venous blood specimen / Unknown Venipuncture / Unknown 05/26/2025 4:52 AM EDT 05/26/2025 10:18 AM EDT us Harris Gross MD LAB BLOOD ORDERABLES Final Resul t Performing Organization Address City/[facility]/ZIP Co de Phone Number [facility] [address] [place] [address], [place] [phone] * Ferritin (05/26/2025 4:52 AM EDT) [facility] Ferritin 23 8 - 252 ng/mL LAB CHEMISTRY METHOD 05/26/2025 12:57 PM EDT [facility] Blood Venous blood specimen / Unknown Venipuncture / Unknown 05/26/2025 4:52 AM EDT 05/26/2025 10:18 AM EDT us Harris Gross MD LAB BLOOD ORDERABLES Final Resul t Performing Organization Address City/[facility]/ZIP Co de Phone Number [facility] [address] [place] [address], [place] [phone] * (ABNORMAL) Comprehensive metabolic panel (05/21/2025 4:56 AM EDT) [facility] Sodium 138 133 - 145 mmol/L LAB CHEMISTRY METHOD 05/21/2025 11:07 AM EDT [facility] Potassium 4.2 3.5 - 5.5 mmol/L LAB CHEMISTRY METHOD 05/21/2025 11:07 AM EDT [facility] Chloride 104 96 - 110 mmol/L LAB CHEMISTRY METHOD 05/21/2025 11:07 AM EDT [facility] CO2 29 21 - 32 mmol/L LAB CHEMISTRY METHOD 05/21/2025 11:07 AM EDT [facility] Anion Gap 5 3 - 11 LAB CHEMISTRY METHOD 05/21/2025 11:07 AM EDT [facility] Glucose 74 70 - 100 mg/dL LAB CHEMISTRY METHOD 05/21/2025 11:07 AM [facility] BUN 28(H) 5 - 25 mg/dL LAB CHEMISTRY METHOD 05/21/2025 11:07 AM [facility] Creatinine 0.96 0.50 - 1.10 mg/dL LAB CHEMISTRY METHOD 05/21/2025 11:07 AM [facility] eGFR 58(L) >=60 mL/min/1. 73m2 LAB CHEMISTRY METHOD 05/21/2025 11:07 AM [facility] Comment:Calculation based on the Chronic Kidney Disease Epidemiology Collaboration (CKD-EPI) equation refit without adjustment for race. BUN/Creatinine Ratio 29.2 LAB CHEMISTRY METHOD 05/21/2025 11:07 AM [facility] Calcium 8.7 8.5 - 10.5 mg/dL LAB CHEMISTRY METHOD 05/21/2025 11:07 AM [facility] AST (SGOT) 17 10 - 42 unit/L LAB CHEMISTRY METHOD 05/21/2025 11:07 AM [facility] ALT (SGPT) 13 10 - 60 unit/L LAB CHEMISTRY METHOD 05/21/2025 11:07 AM [facility] Alkaline Phosphatase 86 42 - 121 unit/L LAB CHEMISTRY METHOD 05/21/2025 11:07 AM [facility] Total Protein 6.1 6.0 - 8.0 g/dL LAB CHEMISTRY METHOD 05/21/2025 11:07 AM [facility] Albumin 3.4 3.2 - 5.0 g/dL LAB CHEMISTRY METHOD 05/21/2025 11:07 AM [facility] Total Bilirubin 0.2 0.0 - 1.4 mg/dL LAB CHEMISTRY METHOD 05/21/2025 11:07 AM [facility] Blood Venous blood specimen / Unknown Venipuncture / Unknown 05/21/2025 4:56 AM EDT 05/21/2025 10:01 AM EDT us Harris Gross MD LAB BLOOD ORDERABLES Final Resul t [facility] ([facility] LAB [address] [place] [address], [place] [phone] from Last 3 Months Insurance MEDICARE [facility] Advance Directives Documents on File Type Date Recorded Patient Veterinary Technician Expl anation Health Care Decision (hx) 09/07/2023 HE ALTH CARE PROXY Health Care Decision (hx) 03/03/2023 HE ALTH CARE PROXY Care Teams Trouble Shooter Relationship Specialty Start Date End Date Harris Gross MD [address] [facility] [address] [place] [address] PCP - General Geriatric Medicine 02/13/25
--- OUTSIDE RECORDS SUMMARY | 2025-08-09 07:48 | XMS_ITS | Encounter Summary ---
Author Organization [facility] Address [address] [place] [address] Care Team Providers Care Maintenance Plumber Name Role Phone Harris Gross MD Primary Care Provider [phone] Encounter Details Date Type Department Care Team (Late st Contact Info) Description 02/19/2025 Lab Requisition [facility] - Main Lab [address] [facility] [place] [address] Harris Gross MD [address] [place], [place] [phone] Other ocean transportation intermediary (current) drug therapy Social History Tobacco Use [...] FOLATE Routine 02/19/2025 5:09 AM EDT Other ocean transportation intermediary (current) drug therapy documented in this encounter Results * (ABNORMAL) Folate (02/19/2025 5:09 AM EDT) Folate >20.0(H) 2.8 - 17.0 ng/ml LAB CHEMISTRY METHOD 02/19/2025 8:26 AM EDT [facility] ([facility]) [facility] Blood Venous blood specimen / Unknown Venipuncture / Unknown 02/19/2025 5:09 AM EDT 02/19/2025 6:45 AM EDT Harris Gross MD LAB BLOOD ORDERABLES Final Resul t [facility] ([facility]) [facility] [address] [place] [address], documented in this encounter Visit Diagnoses Diagnosis Other penitentiary (current) drug therapy documented in this encounter Care Teams Maintenance Plumber Relationship Specialty Start Date End Date Harris Gross MD [address] [place] [address] [address] [place] [address] PCP - General Geriatric Medicine 02/13/25 documented as of this encounter
--- OUTSIDE RECORDS SUMMARY | 2025-08-09 07:48 | XMS_ITS | Encounter Summary ---
Author Organization [facility] Address [address] [place] [address] Phone Care Team Providers Care Welding Machine Operator Arc Name Role Phone Norm Bates Unavailable [phone] Verónica Nielson MD Unavailable [phone] Bandar Renteria MD Unavailable Luis Milner CNP Unavailable [phone] Martha Estrada MD Unavailable [phone] David Walton MD Unavailable [phone] Deny Saleh DO Primary Care Provider [phone] Bandar Renteria MD Primary Care Provider Nick Gomez Primary Care Provider + Encounter Details Date Type Department Care Team (Late st Contact Info) Description 12/14/2020 Transcribe Orders [facility] [place] [address] [place] [address] Deny Saleh DO [address] [facility] [place], [place] [phone] Social History Tobacco Use Types Packs/Day Years [...] on filedocumented in this encounter Care Teams Welding Machine Operator Arc Relationship Specialty Start Date End Date Nunudelfina Deny SawyerDO [address] [place] [address] [email or web address] PCP - General Internal Medicine 08/09/17 01/09/21 Bandar Renteria MD [address] [place] [address] [address] PCP - General Internal Medicine 01/10/21 05/13/23 Nick Gomez PA [address] [place] [address] PCP - General Physician Compounder 05/14/23 Norm Bates PA [address] [place] [address] Historical LMR Provider 06/22/17 2 Verónica Nielson MD [address] [address] Historical LMR Provider 06/22/17 Bandar Renteria MD [address] [place] [address] [address] Historical LMR Provider 06/22/17 2 Luis Milner CNP [address] [address] [email or web address] Historical LMR Provider 06/22/17 09/11/21 Martha Estrada MD 4 [facility], [facility] [place] [address] [email or web address] Historical LMR Provider 06/22/17 David Walton MD [address] [place] [address] Historical LMR Provider 06/22/17 2 documented as of this encounter Additional Source Comments The information contained in this document represents components of the legal health record. It is not the complete legal health record.[facility]
--- OUTSIDE RECORDS SUMMARY | 2025-08-09 07:48 | XMS_ITS | Clinical Summary ---
Author Organization [facility] Address [address] [place] [address] Phone Care Team Providers Care Sat Tutor Name Role Phone Nick Gomez Primary Care [...] Insurance MEDICARE PART A & B [facility] MEDICARE SUPPLEMENT MEDICARE PART A & B [employer] MEDICARE SUPPLEMENT MEDICARE PART A & B [employer] MEDICARE SUPPLEMENT MEDICARE PART A & B [facility] MEDICARE SUPPLEMENT MEDICARE PART A & B [facility] MEDICARE SUPPLEMENT MEDICARE PART A & B [facility] MEDICARE SUPPLEMENT MEDICARE PART A & B [facility] MEDICARE SUPPLEMENT MEDICARE PART A & B Member Subscriber Plan / Payer (Ef fective 2005-Present) Name:Bella Henley Member ID:[id number] Relation to Subscriber:Self Name:Bella Henley Subscriber ID:[id number] Payer ID:[id number] Group ID:Not on file Type:Medicare Address: [employer] [address] [place] [id number] [facility] MEDICARE SUPPLEMENT MEDICARE PART A & B [facility]IC[facility] SUPPLEMENT Care Teams Sat Tutor Relationship Specialty Start Date End Date Nick Gomez PA [address] [place] [phone] PCP - General Physician Robotics Software Engineer 05/14/23 Additional Source Comments The information contained in this document represents components of the legal health record. It is not the complete legal health record.[facility]
--- OUTSIDE RECORDS SUMMARY | 2025-08-09 07:48 | XMS_ITS | Encounter Summary ---
Author Organization [facility] Address [address] [place] [address] Care Team Providers Care Chief Creative Officer Name Role Phone Harris Gross MD Primary Care Provider [phone] Encounter Details Date Type Department Care Team (Late st Contact Info) Description 02/13/2025 Lab Requisition [facility] - Main Lab [address] [facility] [place] [address] Harris Gross MD [address] [place], [place] [id number] Vitamin D deficiency, unspecified; Gastrointestinal hemorrhage, unspecified; [...] Vitamin B12 (02/13/2025 6:49 AM EDT) [facility] Vitamin B-12 391 250 - 900 pcg/mL LAB CHEMISTRY METHOD 02/13/2025 10:12 AM EDT [facility] Blood Venous blood specimen / Unknown Venipuncture / Unknown 02/13/2025 6:49 AM EDT 02/13/2025 8:56 AM EDT us Harris Gross MD LAB BLOOD ORDERABLES Final Resul t Performing Organization Address [facility]/ZIP Co de Phone Number [facility] [address] [place] [address], [place] [phone] * Vitamin D 25 hydroxy (02/13/2025 6:49 AM EDT) [facility] Vit D, 25-Hydroxy 57.4 30.0 - 80.0 ng/mL LAB CHEMISTRY METHOD 02/13/2025 11:18 AM EDT [facility] Blood Venous blood specimen / Unknown Venipuncture / Unknown 02/13/2025 6:49 AM EDT 02/13/2025 8:56 AM EDT us Harris Gross MD LAB BLOOD ORDERABLES Final Resul t [facility] [address] [place] [address], [place] [phone] * Thyroid stimulating hormone (02/13/2025 6:49 AM EDT) [facility] TSH 1.12 0.40 - 4.00 mcIU/mL LAB CHEMISTRY METHOD 02/13/2025 11:19 AM EDT [facility] Blood Venous blood specimen / Unknown Venipuncture / Unknown 02/13/2025 6:49 AM EDT 02/13/2025 8:56 AM EDT Harris Gross MD LAB BLOOD ORDERABLES Final Resul t [facility] [address] [place] [address], [place] [phone] * (ABNORMAL) Comprehensive metabolic panel (02/13/2025 6:49 AM EDT) Sodium 140 133 - 145 mmol/L LAB CHEMISTRY METHOD 02/13/2025 10:[address] [facility] Potassium 3.8 3.5 - 5.5 mmol/L LAB CHEMISTRY METHOD 02/13/2025 10:[address] [facility] Chloride 105 96 - 110 mmol/L LAB CHEMISTRY METHOD 02/13/2025 10:[address] [facility] CO2 29 21 - 32 mmol/L LAB CHEMISTRY METHOD 02/13/2025 10:[address] [facility] Anion Gap [...] Resul t [facility] [address] [place] [address], * (ABNORMAL) Complete blood count (02/13/2025 6:49 AM EDT) WBC 3.3(L) 4.8 - 10.8 K/mcL LAB HEMETOLOGY METHOD 02/13/2025 9:[address] [facility] RBC 2.90(L) 3.80 - 4.80 M/mcL LAB HEMETOLOGY METHOD 02/13/2025 9:[address] [facility] Hemoglobin 8.4(L) 11.5 - 16.0 g/dL LAB HEMETOLOGY METHOD 02/13/2025 9:[address] [facility] Hematocrit 27.2(L) 35.0 - 47.0 % LAB HEMETOLOGY METHOD 02/13/2025 9:[address] [facility] MCV 94.8 79.0 - 98.0 FL LAB HEMETOLOGY METHOD 02/13/2025 9:[address] [facility] MCH 29.3 27.0 - 32.0 pcg LAB HEMETOLOGY METHOD 02/13/2025 9:[address] [facility] MCHC 30.9(L) 32.0 - 37.0 g/dL LAB HEMETOLOGY METHOD 02/13/2025 9:[address] [facility] RDW 14.9 11.0 - 15.0 % LAB HEMETOLOGY METHOD 02/13/2025 9:[address] [facility] Platelets 132 130 - 400 K/mcL LAB HEMETOLOGY METHOD 02/13/2025 9:[address] [facility] MPV 11.8(H) 7.0 - 11.0 FL LAB HEMETOLOGY METHOD 02/13/2025 9:[address] [facility] NRBC 0.0 <1.0 % LAB HEMETOLOGY METHOD 02/13/2025 9:[address] [facility] NRBC Absolute 0.00 <0.10 K/mcL LAB HEMETOLOGY METHOD 02/13/2025 9:[address] [facility] Blood Venous blood specimen / Unknown Venipuncture / Unknown 02/13/2025 6:49 AM EDT 02/13/2025 8:56 AM EDT Harris Gross MD LAB BLOOD ORDERABLES Final Resul t [facility] ([facility] [address] [place] [address], documented in this encounter Visit Diagnoses Diagnosis Vitamin D deficiency, unspecified Gastrointestinal hemorrhage, unspecified Aphagia Anorexia documented in this encounter Care Teams Chief Creative Officer Relationship Specialty Start Date End Date Harris Gross MD [address] [place] [address] [address] [place] [address] PCP - General Geriatric Medicine 02/13/25 documented as of this encounter
--- OUTSIDE RECORDS SUMMARY | 2025-08-09 07:48 | XMS_ITS | Encounter Summary ---
Author Organization [facility] Address [address] [place] [address] Care Team Providers Care Automation Controls Engineer Name Role Phone Harris Gross MD Primary Care Provider [phone] Encounter Details Date Type Department Care Team (Late st Contact Info) Description 06/21/2025 Lab Requisition [facility] - Main Lab [address] [facility] [place] [address] Harris Gross MD [address] [facility] [address] [place], [place] [id number] Essential (primary) hypertension; Chronic obstructive pulmonary disease, [...] V28) documented in this encounter Care Teams Automation Controls Engineer Relationship Specialty Start Date End Date Harris Gross MD [address] [facility] [address] [place], [place] [phone] PCP - General Geriatric Medicine 02/13/25 documented as of this encounter
== END 2025-08-09 07:46 | disposition home or self-care (01) ==
LOC: HO.CT 07:45
PROVIDERS: PCP Student in an Organized Health Care Education/Training Program; Visit Provider Psychiatry & Neurology Neurology
DX: M53.3 Sacrococcygeal disorders, not elsewhere classified (principal); G91.9 Hydrocephalus, unspecified; R41.89 Other symptoms and signs involving cognitive functions and awareness; W19.XXXA Unspecified fall, initial encounter
CPT/HCPCS: 70450; 72220

== ENCOUNTER → 2025-08-09 07:47 | Outpatient (BNV) | payer MEDICARE, OTHER, SELFPAY | PROVIDERS: PCP Student in an Organized Health Care Education/Training Program; Visit Provider Radiology Diagnostic Radiology | DX: M85.88 Other specified disorders of bone density and structure, other site (principal); Z04.3 Encounter for examination and observation following other accident | CPT/HCPCS: 72220 ==

== ENCOUNTER 2025-08-21 10:18 | Observation (INO) | payer MEDICARE, OTHER, SELFPAY ==
--- NOTE | ~2025-08-21 | CT_ITS ---
EXAMINATION: CT ABDOMEN PELVIS WITH IV CONTRAST HISTORY: rectal bleed COMPARISON: Comparison is made with the prior examinations dated 06/17/2025 and 02/10/2025. TECHNIQUE: CT scan of the abdomen and pelvis was performed following administration of 85 mL Omnipaque 350 using standard departmental protocol. Coronal and sagittal reformatted images were generated and reviewed. Oral contrast material was not administered at the request of the referring physician. This CT exam was performed with one or more of the following dose reduction techniques: automated exposure control, adjustment of the mA and/or kV according to patient size, use of iterative reconstruction technique. DLP: 567 mGy-cm FINDINGS: LOWER CHEST: There is a 12 mm nodular opacity at the posteromedial aspect of the right lung base which was not seen on prior studies. This may be inflammatory in nature.. There is no pleural effusion. CARDIOVASCULATURE: The heart is normal in size. There is no pericardial effusion. An aortic valve prosthesis is noted. LIVER: The liver is normal in size and contour. There is a 12 mm cyst at the dome of the liver and an 11 mm cyst in the inferior right lobe. The hepatic and portal veins are patent. GALLBLADDER / BILE DUCTS: The gallbladder is unremarkable. There is no intra or extrahepatic biliary ductal dilatation. SPLEEN: The spleen is normal in size. No focal splenic lesion is identified. PANCREAS: The pancreas is unremarkable in appearance. ADRENAL GLANDS: Within normal limits. KIDNEYS/RETROPERITONEUM: There is a 4 mm nonobstructing calculus at the upper pole of the left kidney and a 2 mm nonobstructing calculus at the lower pole. No right renal calculi are identified.. There is no hydronephrosis. No renal masses are identified. LYMPH NODES: No abdominal or pelvic lymphadenopathy. VASCULATURE: There is a 3.4 cm infrarenal abdominal aortic aneurysm. MESENTERY/PERITONEUM: No free fluid. No masses. There is no free intraperitoneal gas. STOMACH: The stomach is collapsed, limiting evaluation. SMALL BOWEL: The small bowel is normal in caliber. COLON: There is a large amount of stool throughout the colon. There is diverticulosis of the sigmoid colon, without evidence of diverticulitis. APPENDIX: Normal. URINARY BLADDER/PELVIC ORGANS: The urinary bladder is unremarkable. The uterus is unremarkable. BONES / SOFT TISSUES: There is degenerative disc disease of the spine. There are old healed fractures of the left superior and inferior pubic rami. CT/CT abdomen pelvis w IV con IMPRESSION: 1. Large amount of stool throughout the colon. Sigmoid diverticulosis without evidence of diverticulitis. 2. 3.4 cm infrarenal abdominal aortic aneurysm. 3. Left nephrolithiasis as described. Electronically signed by: Anatoliy Elias MD 08/21/2025 02:06 PM [facility]
[2025-08-21 10:47] VITALS: BP 125/53; PULSE 89; RESP 18; TEMP 36.9; O2SAT 95; BMI 26.1
--- NOTE | 2025-08-21 10:47 | ED.GIBLEED ---
HPI - GI Bleed General Chief complaint: General Medical Stated complaint: rectal bleeding? Time Seen by Provider: 08/21/25 12:12 Source: patient Mode of arrival: ambulatory Limitations: no limitations History of Present Illness ED Provider: DR. 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 Related Data Home Medications ?Medication ?Instructions ?Recorded ?Confirmed acetaminophen 325 mg tablet 325 mg PO Q4H PRN Pain 02/10/25 07/25/25 citalopram 20 mg tablet (Celexa) 20 mg PO BID 05/14/25 07/25/25 fluticasone propionate 50 1 spray intranasal DAILY PRN 05/16/25 07/25/25 mcg/actuation nasal Allergy Symptoms spray,suspension polyethylene glycol 3350 17 17 g PO DAILY PRN Constipation 05/16/25 07/25/25 gram/dose oral powder (Miralax) alprazolam 0.25 mg tablet 0.125 mg PO BID 06/17/25 07/25/25 bupropion HCl 75 mg tablet 75 mg PO DAILY 06/27/25 07/25/25 Previous Rx's ?Medication ?Instructions ?Recorded cholecalciferol (vitamin D3) 50 50 mcg PO DAILY #90 tabs 12/09/24 mcg (2,000 unit) tablet (Vitamin D3) clopidogrel 75 mg tablet 75 mg PO DAILY #90 tabs 03/20/25 pantoprazole 40 mg tablet,delayed 40 mg PO DAILY@0630 #90 tabs 04/13/25 release (Protonix) simethicone 80 mg chewable tablet 80 mg PO BID-TID PRN abdominal 07/08/25 distention #60 tabs coenzyme Q10 100 mg capsule 100 mg PO DAILY 90 days #90 caps 07/21/25 (CoQ-10) dicyclomine 20 mg tablet 20 mg PO BID PRN abdominal cramps 07/25/25 #30 tabs lidocaine 5 % topical patch 1 patch topical Q24H PRN pain #30 08/05/25 ea mirabegron 50 mg tablet,extended 50 mg PO BEDTIME #90 tabs 08/20/25 release 24 hr (Myrbetriq) solifenacin 5 mg tablet 5 mg PO DAILY #30 tabs 08/20/25 Allergies Allergy/AdvReac Type Severity Reaction Status Date / Time buspirone Allergy Intermediate Rash Verified 08/21/25 10:50 Sulfa (Sulfonamide Allergy Intermediate RASH Verified 08/21/25 10:50 Antibiotics) cefuroxime Allergy Unknown Unknown Verified 08/21/25 10:50 garlic (GARLIC) Allergy Unknown PER H&P Verified 08/21/25 10:50 metronidazole (From FLAGYL) Allergy Unknown OCULAR Verified 08/21/25 10:50 MIGRAINES penicillamine Allergy Unknown Unknown Verified 08/21/25 10:50 ciprofloxacin AdvReac Intermediate neuropathic Verified 08/21/25 10:50 pain lisinopril AdvReac Intermediate Cough Verified 08/21/25 10:50 loratadine (From Claritin) AdvReac Mild Fatigued Verified 08/21/25 10:50 nitrofurantoin AdvReac Mild GI side Verified 08/21/25 10:50 effects cefuroxime Allergy Intermediate wheezy Uncoded 08/08/25 14:51 cough/itch flagyl Allergy Unknown Unknown Uncoded 08/08/25 14:51 From KEFLEX Allergy Unknown RASH Uncoded 08/08/25 14:51 Metoprolol Tartrate Allergy Unknown Unknown Uncoded 08/08/25 14:51 Sulfacet-R Allergy Unknown Unknown Uncoded 08/08/25 14:51 Review of Systems Review of Systems: All other systems are reviewed and are negative Constitutional: Reports as per HPI and Reports no additional constitutional complaints Eyes: Reports as per HPI and Reports no additional eye complaints Reports system reviewed and no additional complaints, except as documented Cardiovascular: Reports as per HPI and Reports no additional cardiovascular complaints Respiratory: Reports as per HPI and Reports no additional respiratory complaints Gastrointestinal: Reports as per HPI and Reports no additional gastrointestinal complaints Genitourinary: Reports no additional female genitourinary complaints Musculoskeletal: Reports no additional musculoskeletal complaints Skin/Breast: Reports system reviewed and no additional complaints, except as docu Psychiatric: Reports no additional psychiatric complaints Endocrine: Reports no additional endocrine complaints Hematologic/Lymphatic: Reports no additional hematologic/lymphatic complaints Allergic/Immunologic: Reports no additional allergic/immunologic complaints Reports system reviewed and no additional complaints, except as documented and Reports Abnormal speech present [facility] Past Medical History Medical History Mood disorder Severe aortic stenosis Dizziness Nonspecific low blood pressure reading Annual wellness visit Acute diverticulitis LLQ abdominal pain Contusion of right lower leg Otitis media Cough Bronchitis Pelvic pain Chronic cough Elevated IgE level Status post fall Hip pain Post-menopausal URI (upper respiratory infection) Sensation of pressure in bladder area Chest pain Elevated blood sugar Oral candidiasis GERD (gastroesophageal reflux disease) Pulmonary nodule HTN (hypertension) Heart palpitations Constipation Breast cancer screening Breast pain, left Elevated vitamin B12 level Neck muscle spasm Strain of neck muscle Low back pain Pubic ramus fracture Sore throat Skin tear of upper arm without complication Head injury, acute, without loss of consciousness Fall Medication noncompliance due to cognitive impairment RLQ abdominal pain Sinusitis Flu syndrome Precordial chest pain Atypical chest pain Cold intolerance Former smoker Abnormal lung sounds Fever Bilateral calf pain Nausea Left lower quadrant abdominal pain Dysuria Fatigue Lower extremity weakness Aortic stenosis Obstipation Dark stools Lower abdominal pain Gastroenteritis Neck pain on right side Back pain Rhinitis Elevated BP without diagnosis of hypertension Non-rheumatic aortic stenosis Diverticulitis GERD (gastroesophageal reflux disease) Cat scratch Cat bite Epigastric discomfort Diarrhea Neuropathy Arthritis GERD (gastroesophageal reflux disease) HTN (hypertension) Irritable bowel Heart murmur Surgical History S/P AVR S/P TAVR (transcatheter aortic valve replacement) Hx of esophagogastroduodenoscopy Hx of colonoscopy History of tonsillectomy History of appendectomy Family History Family History Father No problems noted. Mother No problems noted. Social History Social History Household Members: Children Housing: House Are you a primary care transition manager to a significant other at home: No Do you presently have visiting nurse or other home services: Yes Alcohol intake: never Comment: Pt still ambulate on her own even though alarms are on Patient Tobacco Use Status: Former Tobacco user Tobacco use type: Cigarette Years Smoked: 55 e-Cigarette/Vaping Use: Never Used Second Hand Smoke Exposure: Yes Advance Directives: Yes Advance Directives on File: Yes Advance Directives Date on File: 09/21/23 service: No Current occupational status: retired Cognitive needs: No Hearing needs: No Vision needs: Yes (glasses) Physical Exam Vital Signs: Vital Signs: Last Vital Signs Temp 97.9 F 08/21/25 14:00 Pulse 85 08/21/25 14:00 Resp 18 08/21/25 10:47 BP 159/76 H 08/21/25 14:00 Pulse Ox 97 08/21/25 14:00 O2 Del Method Room Air 08/21/25 14:00 BMI result Body Mass Index 26.1 Vital signs have been reviewed and appear to be correct. Blood pressure elevated. Heart rate normal. Respiratory rate normal. Temperature normal. Oxygen saturation normal. Appearance: Alert. Oriented X3. No acute distress. Head: Normal external exam. Normocephalic. Atraumatic. No Calvert signs noted. No raccoon eyes noted Eyes: PERRLA. EOMI. Conjunctiva and sclera normal. Eyelids normal. ENT: TM's Normal. Pharynx normal. Uvula midline. Moist mucous membranes. No trismus noted. No drooling noted. No muffled voice noted. Neck: Normal inspection. Neck supple. FROM. No adenopathy. Thyroid Normal. No meningeal signs. No neck mass noted. CVS: Normal heart rate and rhythm. Heart sound normal. No murmurs noted. Pulses normal throughout. Respiratory: No respiratory distress. Painless inspiration. Breath sounds normal. No wheezes/rales/rhonchi noted. Chest nontender. No accessory muscle usage noted or decreased air movement noted. Abdomen: Soft and nontender. Bowel sounds normal in all 4 quadrants. No distention noted. No organomegaly noted. No visible injury noted. Rectal exam: Maroon like stool, guaiac positive. Back: No CVA tenderness. Full range of motion noted. Skin: Skin warm and dry. Normal skin color. Normal skin turgor. No rashes/lesions/lacerations noted. Extremities: No lower extremity edema. Extremities exhibit normal range of motion. Extremities nontender. Neuro: Oriented X 3. Cranial nerve exam: II-XII are grossly intact No motor deficit. No sensory deficit. Reflexes normal. Course Course Course Narrative: This is an RME: Additional HPI, ROS, PE not included below will be deferred to primary provider. RME assessment and note performed by: Marge Zuniga PA-C This is a [id number], severe status post TAVR, CVA, essential hypertension, hyperlipidemia and COPD, who presents to the Er with a complaint of rectal bleeding which she noticed this morning. Reports that she noticed the blood this morning. Reports that she noticed blood with her BM this AM. Does endorse some constipation. Reports stool was small, pebble like. No abdominal pain. Plan: Labs, further ER eval needed Reevaluation(s) Reevaluation #1: 84-year-old female s/p rectal bleed. CT abdomen and pelvis is unremarkable except for constipation. Patient is slightly symptomatic feel lightheadedness and dizziness. Stable H&H will admit for serial CBCs, type and screen, blood transfusion if needed. Case discussed with Dr. Ignacio will admit the patient for further GI evaluation Time: 14:45 Medications Administered Discontinued Medications Generic Name Dose Route Start Last Admin Trade Name Freq PRN Reason Stop Dose Admin Iohexol 100 ml 08/21/25 13:36 08/21/25 13:36 Iohexol 350 Mg/Ml 100 Ml Infus..Btl IV 08/21/25 13:37 85 ml ONCE ONE Administration Pantoprazole Sodium 40 mg 08/21/25 12:22 08/21/25 12:44 Pantoprazole Sodium 40 Mg/10 Ml Vial IVPUSH 08/21/25 12:23 40 mg ONCE ONE Administration Sucralfate 1 gm 08/21/25 12:22 08/21/25 12:44 Sucralfate Oral Suspension 1 Gm/10 Ml Oral.Susp PO 08/21/25 12:23 1 gm ONCE ONE Administration Medical Decision Making Differential Diagnosis Differential Diagnoses: The differential diagnosis associated with the presentation includes (Colitis, diverticulitis, hemorrhoid, PUD, severe anemia, electrolyte derangement, coagulopathy, thrombocytopenia.) Admission/Observation Consideration of admission/observation: Escalation of care including admission/observation considered Consult Healthcare Provider Management of the patient was discussed with: Hospitalist (Dr. Ignacio) Lab Data MDM Lab Attestation statement: I reviewed the patient's lab results. 08/21/25 11:30 08/21/25 11:30 Labs: Lab Results 08/21/25 08/21/25 Range/Units 11:30 12:29 WBC 3.4 L (4.8-10.8) X10*3/uL RBC 3.01 L (4.20-5.50) X10*6/uL Hgb 8.4 L (12.0-16.0) g/dl Hct 26.8 L (37.0-47.0) % MCV 89.0 (80.0-98.0) fL MCH 27.9 (27.0-33.0) pg MCHC 31.3 (31.0-35.0) g/dl RDW 14.4 (11.0-16.0) % Plt Count 150 L (160-400) X10*3/uL MPV 11.0 (9.4-12.3) fL Immature Gran % (Auto) 0.6 H (0.0-0.4) % Neut % (Auto) 69.4 (45-73) % Lymph % (Auto) 16.9 L (20-40) % Rogers % (Auto) 8.6 (2-11) % Eos % (Auto) 3.6 (0-4) % Baso % (Auto) 0.9 (0-2) % Lymph # (Auto) 0.6 L (1.2-4.9) X10*3/uL Rogers # (Auto) 0.3 (0.1-1.2) X10*3/uL Eos # (Auto) 0.1 (0.0-0.4) X10*3/uL Baso # (Auto) 0.0 (0.0-0.2) X10*3/uL Abs Immat Gran (auto) 0.02 (0.00-0.03) X10*3/uL Absolute Neuts (auto) 2.4 (2.0-8.3) x10*3/uL Absolute Nucleated RBC 0.000 (0.0-0.012) X10*3/uL Nucleated RBC % (auto) 0.0 (0.0-0.2) /100WBC PT 12.8 (11.2-13.5) SEC INR 1.0 (0.9-1.1) Sodium 138 (135-145) mmol/L Potassium 4.1 (3.3-5.1) mmol/L Chloride 105 (96-108) mmol/L Carbon Dioxide 28 (22-29) mmol/L Anion Gap 9 L (12-20) BUN 26 H (9-16) mg/dL Creatinine 1.00 (0.5-1.4) mg/dL Estim Creat Clear Calc 42.9 Estimated GFR 53 Random Glucose 91 (60-115) mg/dL Calcium 9.5 (8.4-10.2) mg/dL Total Bilirubin 0.4 (0.0-1.0) mg/dL Direct Bilirubin 0.2 (0.0-0.5) mg/dL AST 23 (5-31) U/L ALT 13 (0-31) U/L Alkaline Phosphatase 88 (39-117) U/L Total Protein 6.9 (6.5-8.0) g/dL Albumin 4.3 (3.5-5.0) g/dL Stool Occult Blood POSITIVE (NEGATIVE) Blood Type O Positive Antibody Screen POSITIVE Antibody Identification Anti-E Blood Bank Comment Specimen Independent Interpretation I performed an independent interpretation of an: CT Scan (Abdomen pelvis:. Large amount of stool throughout the colon. Sigmoid diverticulosis without evidence of diverticulitis. 2. 3.4 cm infrarenal abdominal aortic aneurysm. 3. Left nephrolithiasis as described. ) Radiology Impression Discussion of test interpretation with radiology: I have reviewed the radiologist's reading. Discharge Plan Discharge Clinical Impression: Hematochezia Patient Disposition: Admitted As Inpatient Print Language: Turkmen
[2025-08-21 11:36] LABS: MANUAL DIFF FLAG NO
[2025-08-21 11:43] LABS: Hematocrit 26.8 % (37.0-47.0); Hemoglobin 8.4 g/dl (12.0-16.0); Imm Gran Abs Auto 0.02 X10*3/uL (0.00-0.03); Imm Gran Pct Auto 0.6 % (0.0-0.4); Lymphocytes Absolute Auto 0.6 X10*3/uL (1.2-4.9); Mean Corpuscular HGB Conc 31.3 g/dl (31.0-35.0); Mean Corpuscular Hemoglobin 27.9 pg (27.0-33.0); Mean Corpuscular Volume 89.0 fL (80.0-98.0); NRBC Abs Auto 0.000 X10*3/uL (0.0-0.012); NRBC Pct Auto 0.0 /100WBC (0.0-0.2); Platelet Count 150 X10*3/uL (160-400); Red Blood Count 3.01 X10*6/uL (4.20-5.50); White Blood Count 3.4 X10*3/uL (4.8-10.8)
[2025-08-21 11:51] LABS: Alanine Aminotransferase 13 U/L (0-31); Albumin Level 4.3 g/dL (3.5-5.0); Alkaline Phosphatase 88 U/L (39-117); Anion Gap 9 (12-20); Aspartate Amino Transferase 23 U/L (5-31); Blood Urea Nitrogen 26 mg/dL (9-16); Calcium 9.5 mg/dL (8.4-10.2); Carbon Dioxide 28 mmol/L (22-29); Chloride 105 mmol/L (96-108); Creatinine Clr Calc Pharmacy 42.9; Estimated Glomerular Filt Rate 53; Potassium 4.1 mmol/L (3.3-5.1); Sodium 138 mmol/L (135-145); Total Protein 6.9 g/dL (6.5-8.0)
[2025-08-21 12:00] VITALS: BP 165/75; PULSE 84; TEMP 36.7; O2SAT 97
--- NOTE | 2025-08-21 12:30 | PC.NURSE ---
[phone] abdifatah fuentes, recently started gabapentin 100mg QHS a week ago, mirbetriq increased to 50mg.
[2025-08-21 12:37] LABS: OBS Int Ctl Valid YES; OBS1 POSITIVE (NEGATIVE)
[2025-08-21 12:42] LABS: INTERNATIONAL NORM RATIO 1.0 (0.9-1.1); Prothrombin Time 12.8 SEC (11.2-13.5)
[2025-08-21] MEDS: Sucralfate Oral Suspension 1 GM/10 ML ORAL.SUSP PO (12:44)
[2025-08-21] MEDS: iohexoL 350 MG/ML 100 ML INFUS..BTL IV (13:36)
[2025-08-21 14:00] VITALS: BP 159/76; PULSE 85; TEMP 36.6; O2SAT 97
--- OUTSIDE RECORDS SUMMARY | 2025-08-21 14:49 | XMS_ITS | Encounter Summary ---
Author Organization [facility] Address [address] [place] [address] Care Team Providers Care Disc Pad Plate Filler Name Role Phone Harris Gross MD Primary Care Provider [phone] Encounter Details Date Type Department Care Team (Late st Contact Info) Description 05/30/2025 Lab Requisition [facility] - Main Lab [address] [facility] [employer] [place] [address] Harris Gross MD [address] [place], [place] [id number] Frequency of micturition Social History Tobacco Use [...] reflex microscopic (05/29/2025 8:00 AM EDT) Specific [place] Urine 1.016 1.003 - 1.030 LAB URINALYSIS [...] t [facility] [address] [place] [address], * (ABNORMAL) Culture urine (05/29/2025 8:00 AM [...] Result [facility] [address] [place] [address], documented in this encounter Visit Diagnoses Diagnosis Frequency of micturition Urinary frequency documented in this encounter Care Teams Disc Pad Plate Filler Relationship Specialty Start Date End Date Harris Gross MD [address] [place] [address] [address] [place] [address] PCP - General Geriatric Medicine 02/13/25 documented as of this encounter
--- OUTSIDE RECORDS SUMMARY | 2025-08-21 14:49 | XMS_ITS | Encounter Summary ---
Author Organization [facility] Address [address] [place] [address] Care Team Providers Care Rehab Department Manager Name Role Phone Harris Gorss MD Primary Care Provider [phone] Encounter Details Date Type Department Care Team (Late st Contact Info) Description 05/21/2025 Lab Requisition [facility] - Main Lab [address] [facility] [place] [address] Harris Gross MD [address] [place], [place] [id number] Essential (primary) hypertension; Chronic obstructive pulmonary disease, [...] mmol/L LAB CHEMISTRY METHOD 05/21/2025 11:07 AM [facility] Potassium 4.2 3.5 - 5.5 mmol/L LAB CHEMISTRY METHOD 05/21/2025 11:07 AM [facility] Chloride 104 96 - 110 mmol/L LAB CHEMISTRY METHOD 05/21/2025 11:07 AM [facility] CO2 29 21 - 32 mmol/L LAB CHEMISTRY METHOD 05/21/2025 11:07 AM [facility] Anion Gap 5 3 - 11 LAB CHEMISTRY METHOD 05/21/2025 11:07 AM [facility] Glucose 74 70 - 100 mg/dL LAB CHEMISTRY METHOD 05/21/2025 11:07 AM [facility] BUN 28(H) 5 - 25 mg/dL LAB CHEMISTRY METHOD 05/21/2025 11:07 AM [facility] Creatinine 0.96 0.50 - 1.10 mg/dL LAB CHEMISTRY METHOD 05/21/2025 11:07 AM [facility] eGFR 58(L) >=60 mL/min/1. 73m2 LAB CHEMISTRY METHOD 05/21/2025 11:07 AM [facility] Comment:Calculation based on the Chronic Kidney Disease Epidemiology Collaboration (CKD-EPI) equation refit without adjustment for race. BUN/Creatinine Ratio 29.2 LAB CHEMISTRY METHOD 05/21/2025 11:07 AM [facility] Calcium 8.7 8.5 - 10.5 mg/dL LAB CHEMISTRY METHOD 05/21/2025 11:07 AM [facility] AST (SGOT) 17 10 - 42 unit/L LAB CHEMISTRY METHOD 05/21/2025 11:07 AM [facility] ALT (SGPT) 13 10 - 60 unit/L LAB CHEMISTRY METHOD 05/21/2025 11:07 AM EDT [facility] Alkaline Phosphatase 86 42 - 121 unit/L LAB CHEMISTRY METHOD 05/21/2025 11:07 AM EDT [facility] Total Protein 6.1 6.0 - 8.0 g/dL LAB CHEMISTRY METHOD 05/21/2025 11:07 AM [facility] Albumin 3.4 3.2 - 5.0 g/dL LAB CHEMISTRY METHOD 05/21/2025 11:07 AM T [facility] Total Bilirubin 0.2 0.0 - 1.4 mg/dL LAB CHEMISTRY METHOD 05/21/2025 11:07 AM [facility] Blood Venous blood specimen / Unknown Venipuncture / Unknown 05/21/2025 4:56 AM EDT 05/21/2025 10:01 AM EDT us Harris Gross MD LAB BLOOD ORDERABLES Final Resul t [facility] [address] [place] [address], * (ABNORMAL) Complete blood count (05/21/2025 4:56 AM EDT) WBC 3.1(L) 4.8 - 10.8 K/[facility] LAB [facility] RBC 2.50(L) 3.80 - 4.80 M/mcL LAB HEMETOLOGY METHOD 05/21/2025 10:[facility] Hemoglobin 6.9(L) 11.5 - 16.0 g/dL LAB HEMETOLOGY METHOD 05/21/2025 10:50 AM [facility] Hematocrit 22.8(L) 35.0 - 47.0 [...] Final Resul t [facility] [address] [place] [address], documented in this encounter Visit Diagnoses Diagnosis Essential (primary) hypertension Unspecified essential hypertension Chronic obstructive pulmonary disease, unspecified (CMS/HCC V24, CMS/HCC V28) Dizziness and giddiness documented in this encounter Care Teams Rehab Department Manager Relationship Specialty Start Date End Date Harris Gross MD [address] [place] [address] [address] [place] [address] PCP - General Geriatric Medicine 02/13/25 documented as of this encounter
--- OUTSIDE RECORDS SUMMARY | 2025-08-21 14:49 | XMS_ITS | Encounter Summary ---
Author Organization [facility] Address [address] [place] [address] Care Team Providers Care Physical Medicine Teacher Name Role Phone Harris Gross MD Primary Care Provider Encounter Details Date Type Department Care Team (Late st Contact Info) Description 03/06/2025 Lab Requisition [facility] - Main Lab [address] [facility] [place] [address] Harris Gross MD [address] [place], [place] [id number] Altered mental status, unspecified; Dysuria Social History [...] reflex microscopic (03/06/2025 12:00 AM EDT) Specific [place] Urine 1.008 1.003 - 1.030 LAB URINALYSIS - AUTOMATED METHOD 03/06/2025 10:34 AM [facility] LAB pH, Urine 7.5 5.0 - 8.0 pH LAB URINALYSIS - AUTOMATED METHOD 03/06/2025 10:34 AM [facility] Leukocytes, Urine Negative Negative LAB URINALYSIS - AUTOMATED METHOD 03/06/2025 10:34 AM [facility] Nitrite, Urine Negative Negative LAB URINALYSIS - AUTOMATED METHOD 03/06/2025 10:34 AM [facility] Protein, Urine Negative <=Trace mg/dL LAB URINALYSIS - AUTOMATED METHOD 03/06/2025 10:34 AM [facility] Glucose, Urine Negative Negative mg/dL LAB URINALYSIS - AUTOMATED METHOD 03/06/2025 10:34 AM [facility] Ketones, Urine Negative Negative mg/dL LAB URINALYSIS - AUTOMATED METHOD 03/06/2025 10:34 AM [facility] Urobilinogen, Urine 0.2 0.2 - 1.0 mg/dL LAB URINALYSIS - AUTOMATED METHOD 03/06/2025 10:34 AM [facility] Bilirubin, Urine Negative Negative LAB URINALYSIS - AUTOMATED METHOD 03/06/2025 10:34 AM [facility] Blood, Urine Negative Negative LAB URINALYSIS - AUTOMATED METHOD 03/06/2025 10:34 AM [facility] Urine Urine specimen obtained by clean catch procedure / Unknown 03/06/2025 03/06/2025 8:51 AM EDT us Harris Gross MD LAB URINE ORDERABLES Final Resul t [facility] [address] [place] [address], * Culture urine (03/06/2025 12:00 AM EDT) Culture, Urine <10,000 CFU/mL gram positive cocci, insignificant count, no further workup 03/07/2025 1:00 PM EDT [facility] Urine Urine specimen obtained by clean catch procedure / Unknown 03/06/2025 03/06/2025 8:51 AM EDT Harris Gross MD LAB MICROBIOLOGY - GENERAL ORDER ROEL Final Result [facility] [address] [place] [address], documented in this encounter Visit Diagnoses Diagnosis Altered mental status, unspecified Dysuria documented in this encounter Care Teams Physical Medicine Teacher Relationship Specialty Start Date End Date Harris Gross MD [address] [place] [address] [address] [place] [address] PCP - General Geriatric Medicine 02/13/25 documented as of this encounter
--- OUTSIDE RECORDS SUMMARY | 2025-08-21 14:49 | XMS_ITS | Encounter Summary ---
Author Organization [facility] Address [address] [place] [address] Care Team Providers Care Chip Tester Name Role Phone Harris Gross MD Primary Care Provider [phone] Encounter Details Date Type Department Care Team (Late st Contact Info) Description 05/30/2025 Lab Requisition [facility] - Main Lab [address] [facility] [place] [address] Harris Gross MD [address] [place], [place] [phone] Essential (primary) hypertension; Chronic obstructive pulmonary disease, [...] mmol/L LAB CHEMISTRY METHOD 06/02/2025 12:46 PM [facility] Potassium 4.0 3.5 - 5.5 mmol/L LAB CHEMISTRY METHOD 06/02/2025 12:46 PM [facility] Chloride 106 96 - 110 mmol/L LAB CHEMISTRY METHOD 06/02/2025 12:46 PM [facility] CO2 27 21 - 32 mmol/L LAB CHEMISTRY METHOD 06/02/2025 12:46 PM [facility] Anion Gap 7 3 - 11 LAB CHEMISTRY METHOD 06/02/2025 12:46 PM [facility] Glucose 69(L) 70 - 100 mg/dL LAB CHEMISTRY METHOD 06/02/2025 12:46 PM [facility] BUN 21 5 - 25 mg/dL LAB CHEMISTRY METHOD 06/02/2025 12:46 PM [facility] Creatinine 0.86 0.50 - 1.10 mg/dL LAB CHEMISTRY METHOD 06/02/2025 12:46 PM [facility] LAB eGFR 67 >=60 mL/min/1. 73m2 LAB CHEMISTRY METHOD 06/02/2025 12:46 PM [facility] LAB Comment:Calculation based on the Chronic Kidney Disease Epidemiology Collaboration (CKD-EPI) equation refit without adjustment for race. BUN/Creatinine Ratio 24.4 LAB CHEMISTRY METHOD 06/02/2025 12:46 PM [facility] Calcium 9.0 8.5 - 10.5 mg/dL LAB CHEMISTRY METHOD 06/02/2025 12:46 PM [facility] Blood Venous blood specimen / Unknown Venipuncture / Unknown 06/02/2025 4:54 AM EDT 06/02/2025 10:56 AM EDT Harris Gross MD LAB BLOOD ORDERABLES Final Resul t [facility] [address] [place] [address], * (ABNORMAL) Complete blood count (06/02/2025 4:54 AM EDT) WBC 3.1(L) 4.8 - 10.8 K/mcL LAB HEMETOLOGY METHOD 06/02/2025 1:02 PM EDT [facility] RBC 2.70(L) 3.80 - 4.80 M/mcL LAB HEMETOLOGY METHOD 06/02/2025 1:02 PM EDT [facility] Hemoglobin 7.8(L) 11.5 - 16.0 g/dL LAB HEMETOLOGY METHOD 06/02[facility]25 [facility] Hematocrit 25.7(L) 35.0 - 47.0 % LAB HEMETOLOGY METHOD 06/02/2025 1:02 [facility] MCV 95.9 79.0 - 98.0 FL LAB HEMETOLOGY METHOD 06/02/2025 1:02 PM EDT [facility] MCH 29.1 27.0 - 32.0 pcg LAB HEMETOLOGY METHOD 06/02/2025 1:02 PM [facility] MCHC 30.4(L) 32.0 - 37.0 g/dL LAB HEMETOLOGY METHOD 06/02/2025 1:02 PM EDT [facility] RDW 17.8(H) 11.0 - 15.0 % LAB HEMETOLOGY METHOD 06/02/2025 1:02 PM EDT [facility] Platelets 109(L) 130 - 400 K/mcL LAB HEMETOLOGY METHOD 06/02/2025 1:02 [facility] MPV 12.3(H) 7.0 - 11.0 FL LAB HEMETOLOGY METHOD 06/02/2025 1:02 PM EDT [facility] NRBC 0.0 <1.0 % LAB HEMETOLOGY METHOD 06/02/2025 1:02 PM EDT [facility] NRBC Absolute 0.00 <0.10 K/mcL LAB HEMETOLOGY METHOD 06/02/2025 1:02 PM EDT [facility] Blood Venous blood specimen / Unknown Venipuncture / Unknown 06/02/2025 4:54 AM EDT 06/02/2025 10:56 AM EDT us Harris Gross MD LAB BLOOD ORDERABLES Final Resul t [facility] [address] [place] [address], documented in this encounter Visit Diagnoses Diagnosis Essential (primary) hypertension Unspecified essential hypertension Chronic obstructive pulmonary disease, unspecified (CMS/HCC V24, CMS/HCC V28) documented in this encounter Care Teams Chip Tester Relationship Specialty Start Date End Date Harris Gross MD [address] [place] [address] [address] [place] [address] PCP - General Geriatric Medicine 02/13/25 documented as of this encounter
--- OUTSIDE RECORDS SUMMARY | 2025-08-21 14:49 | XMS_ITS | Encounter Summary ---
Author Organization [facility] Address [address] [place] [address] Care Team Providers Care Clinical Services Manager Name Role Phone Harris Gross MD Primary Care Provider [phone] Encounter Details Date Type Department Care Team (Late st Contact Info) Description 06/06/2025 Lab Requisition [facility] - Main Lab [address] [facility] [place] [address] Harris Gross MD [address] [place], [place] [phone] Essential (primary) hypertension; Chronic obstructive pulmonary disease, [...] [facility] [address] [place] [address], * (ABNORMAL) Complete blood count (06/09/2025 4:55 AM EDT) WBC 3.1(L) 4.8 - 10.8 K/mcL LAB HEMETOLOGY METHOD 06/09/2025 11:14 AM EDT [facility] RBC 2.80(L) 3.80 - 4.80 M/mcL LAB HEMETOLOGY METHOD 06/09/2025 11:14 AM EDT [facility] Hemoglobin 8.0(L) 11.5 - 16.0 g/dL LAB HEMETOLOGY METHOD 06/09/2025 11:14 AM [facility] LAB Hematocrit 26.2(L) 35.0 - 47.0 % LAB HEMETOLOGY METHOD 06/09/2025 11:14 AM EDT [facility] MCV 94.9 79.0 - 98.0 FL LAB HEMETOLOGY METHOD 06/09/2025 11:14 AM EDT [facility] MCH 29.0 27.0 - 32.0 pcg LAB HEMETOLOGY METHOD 06/09/2025 11:14 AM [facility] LAB MCHC 30.5(L) 32.0 - 37.0 g/dL LAB HEMETOLOGY METHOD 06/09/2025 11:14 AM EDT [facility] RDW 18.4(H) 11.0 - 15.0 % LAB HEMETOLOGY METHOD 06/09/2025 11:14 AM EDT [facility] Platelets 130 130 - 400 K/mcL LAB HEMETOLOGY METHOD 06/09/2025 11:14 AM [facility] LAB MPV 12.1(H) 7.0 - 11.0 FL LAB HEMETOLOGY METHOD 06/09/2025 11:14 AM EDT [facility] NRBC 0.0 <1.0 % LAB HEMETOLOGY METHOD 06/09/2025 11:14 AM EDT [facility] NRBC Absolute 0.00 <0.10 K/mcL LAB HEMETOLOGY METHOD 06/09/2025 11:14 AM EDT [facility] Blood Venous blood specimen / Unknown Venipuncture / Unknown 06/09/2025 4:55 AM EDT 06/09/2025 10:20 AM EDT us Harris Gross MD LAB BLOOD ORDERABLES Final Resul t [facility] [address] [place] [address], documented in this encounter Visit Diagnoses Diagnosis Essential (primary) hypertension Unspecified essential hypertension Chronic obstructive pulmonary disease, unspecified (CMS/HCC V24, CMS/HCC V28) documented in this encounter Care Teams Clinical Services Manager Relationship Specialty Start Date End Date Harris Gross MD [address] [place] [address] [address] [place] [address] PCP - General Geriatric Medicine 02/13/25 documented as of this encounter
--- OUTSIDE RECORDS SUMMARY | 2025-08-21 14:49 | XMS_ITS | Encounter Summary ---
Author Organization [facility] Address [address] [place] [address] Care Team Providers Care Shank Taper Name Role Phone Harris Gross MD Primary Care Provider Encounter Details Date Type Department Care Team (Late st Contact Info) Description 06/21/2025 Lab Requisition [facility] - Main Lab [address] [facility] [place] [address] Harris Gross MD [address] [place], [place] [phone] Essential (primary) hypertension; Chronic obstructive pulmonary disease, [...] V28) documented in this encounter Care Teams Shank Taper Relationship Specialty Start Date End Date Harris Gross MD [address] [facility] [address] [place], [place] [phone] PCP - General Geriatric Medicine 02/13/25 documented as of this encounter
--- OUTSIDE RECORDS SUMMARY | 2025-08-21 14:49 | XMS_ITS | Data Portability ---
Author Organization [facility], Telehealth Patient Home Address [address] [place] [phone] Assessment No assessment recorded. Plan of Treatment Reminders Order Date Submit Date Provider Last Modified By Organization Details Last Modified Time Details Appointments None recorded. Lab BMP, blood [address] Internal [facility], [address] [place] [address], [place], [phone], 9 07:42:19 lipid panel, blood [address] [facility], [address] [place] [address], [place], [phone], 9 07:42:20 Referral None recorded. Procedures None recorded. Surgeries None recorded. Imaging None recorded. Medication Orders Cipro 500 mg tablet 2018 019 [facility] [employer] [email or web address][id number], [address] [place], [place], [id number], 9 11:53:38 Zithromax Z-Rajesh 250 mg tablet 2018 019 [email or web address] #66987, [address] [place], [place], [id number], 9 11:53:23 metoprolol succinate ER 25 mg tablet,exte nded release 24 hr 2018 019 [email or web address], [address] [place], [place], [id number], 9 11:15:40 Patient Targets Encounter Date Encounter Id Patient Goals Patient Target Last Modified By Organization Details Last Modified Time 09/26/2018 [id number] Call therapist to schedule counseling mindyerlinda Not available 09/26/2018 11:54:07 Patient Instructions Encounter Date Encounter Id Patient Instructions Last Modified By Organization Details Last Modified Time 09/21/2018 [id number] Relaxation, reconsider escitalopram- will review at f/u next week to avoid dual med starting together marilynn Not available 09/21/2018 15:27:44 09/26/2018 [id number] pulse oximetry* marilynn Not available 09/26/2018 11:54:08 10/08/2018 [id number] Acute Sinusitis: Care Instructions marilynn Not available 10/08/2018 11:28:17 pulse oximetry* marilynn Not available 10/08/2018 11:28:17 12/04/2018 [id number] pulse oximetry* marilynn Not available 12/04/2018 12:22:51 Reason for Referral None Reported. Results Created Date Observation Date Name Description Value Unit Range Abnormal Flag Note LastModifiedBy Organization Detail LastModifiedTime 09/26/1909/26/2018 pulse oxime try* Result 96 Not Available [facility] [address] [place] [address], [phone], 09/26/2018 11:15:30 10/08/19 19 10/08/2018 pulse oxime try* Result 97 Not Available [facility] [address] [place] [address], [phone], 10/08/2018 11:18:00 12/05/19 19 12/04/2018 pulse oxime try* Result 97 Not Available [facility] [address] [place] [address], [phone], 12/04/2018 11:55:20 Result Notes None recorded. Problems Name Problem SNOMED Code Status Onset Date Resolution Date Notes Provider Name and Address Organization Details Recorded Time Diverticul itis 919939489 Active 2017 Taina Hanson [facility] 8 16:58:14 Chronic obstructiv e pulmonary disease 44710335 Active 2017 Tainaronnell Hanson [facility] 8 16:58:22 Aortic valve stenosis 24634582 Active 2017 Tainaronnell Hanson [facility] 8 16:58:36 Anxiety 26810909 Active 2017 Tainaronnell Hanson [facility] 8 16:58:45 Cystocele 292958271 Active 2017 Tainaronnell Hanson [facility] 8 16:58:58 Abdominal aortic aneurysm 482696513 Active 2017 Samina Lama NP, [address] [place], [address], [facility] 8 13:58:39 Problem Notes None recorded. Medical Equipment None Reported. Allergies Allergen ID Allergen Name Allergen Category Reaction Reaction Severity Criticality Documentation Date Start Date Code Code System Note Provider Name and Address Organization Details Recorded Time 1547 Substance with sulfonami de structure and antibacte rial mechanism of action (substanc e) medicatio n Not available Not available Not available 02/06/2018 43221 8003 SNOMED Tainaronnell Hanson [facility] 8 16:57:43 1548 Keflex medicatio n Not available Not available Not available 02/06/2018 7 RxNorm Taina Tarangoicki [facility] 8 16:57:55 2328 Flagyl medicatio n other moderate Not available 05/29/2018 6 RxNorm [facility] 8 11:44:55 2717 metoprolo l Not available chest pain Not available Not available 09/21/2018 6918 RxNorm Tainaronnell Tarangoickdonaldo [facility] 9 16:31:23 Medications Name Sig Start [...] /min 97 % 128/84 mm[Hg] Taina Balicki [facility] 09/21/2018 14:32:26 Date Recorded Body height Heart rate Oxygen saturation Systolic And Diastolic Provider Name and Address Organization Details Last Updated DateTime 09/26/2018 168.91 cm 90 /min 96 % 124/80 mm[Hg] Eunice Jesse [facility] Medicine 09/26/2018 11:17:24 Date Recorded Heart rate Provider Name an d Address Organization Details Last Updated DateTime 10/08/2018 84 /min Samina Lama NP, S [address] [place] [address], [phone], [facility] 10/08/2018 11:28:37 Date Recorded Body height Oxygen saturation Heart rate Body temperature Systolic And Diastolic Provider Name and Address Organization Details Last Updated DateTime 9 168.91 cm 97 % 112 /min 98.2 [degF] 142/86 mm[Hg] Taina Hanson [facility] 9 11:17:37 Date Recorded Heart rate Provider Name an d Address Organization Details Last Updated DateTime 10/19/2018 80 /min Samina Lama NP, S [address] [place] [address], [phone], [facility] Internal [facility] 10/19/2018 12:04:58 Date Recorded Body height Heart rate Oxygen saturation Systolic And Diastolic Provider Name and Address Organization Details Last Updated DateTime 10/19/2018 168.91 cm 105 /min 98 % 140/80 mm[Hg] Taina Hanson [facility] 10/19/2018 11:45:01 Date Recorded Body height Body mass index (BMI) Body weight Oxygen saturation Heart rate Systolic And Diastolic Provider Name and Address Organization Details Last Updated DateTime 9 168.91 cm 31.1 kg/m2 17729.6 7 g 97 % 97 /min 120/90 mm[Hg] Dahiana Ha [facility] 9 11:56:24 Social History Question Answer Notes LastModified by Organizat ion Details LastModified Time Tobacco Smoking Status Former [facility]oker [facility] Available [facility]07[facility]2020 03:36:24 What Was The Date Of Your Most Recent Tobacco Screening? 12/04/2018 [id number] Information not available 07/07/2020 Sex: Unknown Functional Status None recorded. Mental Status None recorded. Family History Nothing Reported. Medical History Condition Response Coronary Artery Disease N Other N Gout N Kidney Stones N Blood Diseases N Breast Cancer N Blood Transfusion N Depression N COPD N Lung Disease [...] virus, quadrivalent, preservative 8 completed Eunice Molina [facility] 09/26/2018 11:16:26 Past Encounters Encounter ID Performer Location Encounter Start Date Encounter Closed Date Diagnosis/Indication Diagnosis SNOMED-CT Code Diagnosis ICD10 Code Diagnosis IMO Codes Diagnosis Note [id number] Deny Saleh [facility] [address] [place] [address],[place] [address] 02/07/2018 11:02:27 02/07/2018 16:46:02 Anxiety 08323726 F41.9 Nail changes 123410695 L 60.9 Abdominal aortic aneurysm 581670033 I71.4 CT 11/2017, no changes 2017, 2.85 cm Aortic david nosis, non-rheumatic 817535804 I35.0 stable Gastroesop hageal reflux disease 457198559 K21.9 d/c o[place] mints, call if persists Insomnia 755041001 G47.0 0 review proper sleep hygiene be more active during day avoid naps [id number] Deny Saleh [facility] [address] [facility],[place] [address] 03/16/2018 11:29:23 03/20/2018 08:12:01 Dehydration 27965709 E86.0 Gastroenteritis 05685116 K52.9 Aortic valve stenosis 60 415489 I35.0 stable, follow [id number] Deny Saleh [facility] Internal [facility] [address] [facility],[place] [address] 05/16/2018 13:23:14 05/16/2018 14:06:44 Anxiety 69126733 F41.9 BID lorazepam helps Aortic valve stenosis 60 794042 I35.0 stable, echo 05/31/2017 Active or passive immunization 564936857 Z23 Abdominal aortic aneurysm 054713452 I71.4 CT 11/2017, no changes 2016, 2.85 cm Chronic ob structive pulmonary disease 69366751 J44.9 Non smoker X years, asymptomat ic Diverticular disease 397 810941 K57.90 no recent flare [id number] Deny Saleh [facility] [address] [facility],[place] [address] 05/29/2018 11:40:58 05/29/2018 16:52:51 Aortic valve stenosis 20853420 I35.0 stable, echo 05/31/2017 Anxiety 61597185 F41.9 BID lorazepam helps, discussed current fears re: Constipation 35540698 K5 9.00 [id number] [facility] [address] [facility],[place] [address] 08/14/2018 11:20:27 08/14/2018 17:00:16 Anxiety 64380040 F41.9 BID lorazepam helps, discussed current fears Aortic valve stenosis 60 067907 I35.0 stable, echo 05/31/2017 Diverticulitis 661073598 K57.92 Increased frequency of urination 771470414 R35.0 [id number] Deny Saleh [facility] [address] [facility],[place] [address] 08/20/2018 11:12:33 08/20/2018 12:20:46 Anxiety 35712390 F41.9 BID alprazolam helps, discussed current fears Diverticulitis 876666045 K57.92 Aortic valve stenosis 60 485952 I35.0 stable, echo 05/31/2017 Family problems 63851011 4 Z63.79 Suggest therapy, names provided. Pt agrees [id number] Deny SawyerGeermias Delfino [facility] [address] [facility], [place] [address] 09/12/2018 10:19:31 09/12/2018 20:18:16 Abdominal aortic aneurysm 865779456 I71.4 CT 11/2017, no changes 2016, 2.85 cm Chronic ob structive pulmonary disease 75504706 J44.9 Non smoker X years, asymptomat ic Anxiety 59591165 F41.9 BID alprazolam helps, discussed current fears Aortic valve stenosis 60 154009 I35.0 stable, echo 05/31/2017 [id number] Dney Eddydelfina [facility] [address] [facility], [place] [address] 09/21/2018 14:26:58 09/25/2018 11:17:00 Anxiety 85432078 F41.9 discussed current fears again, see below Aortic valve stenosis 60 725755 I35.0 [id number] Deny SawyerGeremias NunudelfinaJohn [facility]. [facility] Internal [facility] [address] [facility], [place] [address] 09/26/2018 11:12:05 09/26/2018 13:02:53 Hypertensive disorder 33218002 I10 Chronic ob structive pulmonary disease 74986042 J44.9 Non smoker X years, asymptomat ic Anxiety 58813968 F41.9 discussed current fears again, see below Aortic valve stenosis 60 500400 I35[place]0 [place] [id number] Deny SawyerGeremias NunudelfinaJohn F. [facility] [address] [facility], [place] [address] 10/08/2018 11:12:38 10/08/2018 14:35:10 Cough 91723964 R05 Acute sinusitis 00414287 J01.90 Anxiety 43318965 F41.9 revisited [id number] Deny SawyerGeremias [facility]hJohn [facility]. [facility] [address] [facility] [place] [address] 10/19/2018 11:41:00 10/19/2018 12:37:34 Diverticulitis 905289796 K57.92 Intolerant Flagyl Anxiety 46646995 F41.9 revisited Aortic valve stenosis 60 359157 I35.0 asymptomat ic Abdominal aortic aneurysm 310121862 I71.4 CT 11/2017, no changes 2016, 2.85 cm Chronic ob structive pulmonary disease 15855366 J44.9 [place], [place] [id number] Deny Saleh DO [facility] [address] [facility],[place] [address] 12/04/2018 11:49:58 12/04/2018 16:03:42 Chronic obstructive pulmonary disease 64968160 J44.9 Non smoker X years, asymptomat ic Anxiety 46979483 F41.9 revisited Aortic valve stenosis 60 671969 I35.0 asymptomat ic Health Concerns Section Related Observation LastModified by Organization Detai ls LastModified Time None Recorded Concern Status LastModified by Organization Details LastModified Time None Recorded Advance Directives Directive None Recorded Payers Insurance Date Sequence Insurance Name Policy Number Policy Berry Covered Member ID Berry Member ID Guarantor Name 12/03/2018 2 [facility] IN[facility] (INDEMNITY) [id number] Bella Henley [id number] Bella Henley 12/03/2018 1 MEDICARE B-AK: [employer] Bella Henley [id number] Bella Henley Notes Date Note Type Note Provider Name a nd Address Organization Details Recorded Time 09/21/2018 text/html ROS as noted in the HPI Here with concerns BP had panic attack this am, ambulance was called Checked BP after pts episode was 158/101 Did not start escitalopram prescribed last week , under a great deal of stress Samina Lama NP, S [address] [facility], [place], [address], [facility] 09/21/2018 15:27:56 09/26/2018 text/html [...] complete ADL's Samina Lama NP, S [address] [place], [address], [facility] 09/26/2018 11:54:50 10/08/2018 text/html [...] family situation Samina Lama NP, S [address] [place], [address], [facility] 10/08/2018 11:49:45 10/19/2018 text/html Yesterday felt ok last night 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 this a.m. also increased voiding w/no dysuria no N/V/D/C, no BRBPR or hematuria Samina Lama NP, S [address] [place], [address], [facility] 10/19/2018 12:09:27 12/04/2018 text/html ROS as noted in the HPI Very anxious re: husbands cognitive decline/getting worn out In therapy w/Norberto Willoughbyp Son also recent renal cancer, surgery went well.-but pt. gets worked up over everything pt recently started back on allergy shots some heartburn and post nasal drip Samina Lama NP, S [address] [place], [address], [facility] 12/04/2018 12:23:16 OBGyn Episode No OBEpisode recorded.
--- OUTSIDE RECORDS SUMMARY | 2025-08-21 14:49 | XMS_ITS | Encounter Summary ---
Author Organization [facility] Address [address] [place] [address] Care Team Providers Care Fast Food Shift Lead Name Role Phone Harris Gross MD Primary Care Provider [phone] Encounter Details Date Type Department Care Team (Late st Contact Info) Description 05/25/2025 Lab Requisition [facility] [address] [facility] [place] [address] Harris Gross MD [address] [place], [place] [address] Essential (primary) hypertension; Chronic obstructive pulmonary disease, [...] LAB CHEMISTRY METHOD 05/26/2025 12:57 PM EDT [facility] Blood Venous blood specimen / Unknown Venipuncture / Unknown 05/26/2025 4:52 AM EDT 05/26/2025 10:18 AM EDT us Harris Gross MD LAB BLOOD ORDERABLES Final Resul t [facility] [address] [place] [address], * Iron and TIBC (05/26/2025 4:52 AM EDT) Iron 88 40 - 150 mcg/dL LAB CHEMISTRY METHOD 05/26/2025 12:56 PM EDT [facility] TIBC 358 250 - 450 mcg/dL LAB CHEMISTRY METHOD 05/26/2025 12:56 PM EDT [facility] Iron Saturation 25 15 - 50 % LAB CHEMISTRY METHOD 05/26/2025 12:56 PM EDT [facility] Blood Venous blood specimen / Unknown Venipuncture / Unknown 05/26/2025 4:52 AM EDT 05/26/2025 10:18 AM EDT us Harris Gross MD LAB BLOOD ORDERABLES Final Resul t [facility] [address] [place] [address], * (ABNORMAL) Basic metabolic panel (05/26/2025 4:52 AM EDT) Sodium 141 133 - 145 mmol/L LAB CHEMISTRY METHOD 05/26/2025 12:56 PM EDT [facility] Potassium 4.8 3.5 [...] LAB CHEMISTRY METHOD 05/26/2025 12:56 PM EDT [facility] Blood Venous blood specimen / Unknown Venipuncture / Unknown 05/26/2025 4:52 AM EDT 05/26/2025 10:18 AM EDT us Harris Gross MD LAB BLOOD ORDERABLES Final Resul t [facility] [address] [place] [address], * (ABNORMAL) Complete blood count (05/26/2025 4:52 AM EDT) WBC 3.5(L) 4.8 - 10.8 K/mcL LAB HEMETOLOGY METHOD 05/26/2025 12:53 PM EDT [facility] RBC 2.70(L) 3.80 - 4.80 M/mcL LAB HEMETOLOGY METHOD 05/26/2025 12:53 PM EDT [facility] Hemoglobin 7.5(L) 11.5 - 16.0 g/dL LAB HEMETOLOGY METHOD 05/26/2025 12:53 PM EDT [facility] Hematocrit 25.0(L) 35.0 - 47.0 % LAB HEMETOLOGY METHOD 05/26/2025 12:53 PM EDT [facility] MCV 92.3 79.0 - 98.0 FL LAB HEMETOLOGY METHOD 05/26/2025 12:53 PM EDT [facility] MCH 27.7 27.0 - 32.0 pcg LAB HEMETOLOGY METHOD 05/26/2025 12:53 PM EDT [facility] MCHC 30.0(L) 32.0 - 37.0 g/dL LAB HEMETOLOGY METHOD 05/26/2025 12:53 PM EDT [facility] RDW 15.2(H) 11.0 - 15.0 % LAB HEMETOLOGY METHOD 05/26/2025 12:53 PM EDT [facility] Platelets 156 130 - 400 K/mcL LAB HEMETOLOGY METHOD 05/26/2025 12:53 PM EDT [facility] MPV 12.4(H) 7.0 - 11.0 FL LAB HEMETOLOGY METHOD 05/26/2025 12:53 PM EDT [facility] NRBC 0.0 <1.0 % LAB HEMETOLOGY METHOD 05/26/2025 12:53 PM EDT [facility] NRBC Absolute 0.00 <0.10 K/mcL [facility] 05/26/2025 12:53 PM EDT [facility] Blood Venous blood specimen / Unknown Venipuncture / Unknown 05/26/2025 4:52 AM EDT 05/26/2025 10:18 AM EDT Harris Gross MD LAB BLOOD ORDERABLES Final Resul t [facility] [address] [place] [address], documented in this encounter Visit Diagnoses Diagnosis Essential (primary) hypertension Unspecified essential hypertension Chronic obstructive pulmonary disease, unspecified (CMS/HCC V24, CMS/HCC V28) Gastro-esophageal reflux disease without esophagitis Anemia, unspecified documented in this encounter Care Teams Fast Food Shift Lead Relationship Specialty Start Date End Date Harris Gross MD [address] [place] [address] [address] [place] [address] PCP - General Geriatric Medicine 02/13/25 documented as of this encounter
--- OUTSIDE RECORDS SUMMARY | 2025-08-21 14:49 | XMS_ITS | Clinical Summary ---
Author Organization [facility] Address [address] [place] [phone] Phone Care Team Providers Care Mid Level Developer Name Role Phone Nick Gomez Primary Care [...] MEDICARE PART A & B [facility] MEDICARE SUPPLEMENT MEDICARE PART A & B [employer] MEDICARE SUPPLEMENT MEDICARE PART A & B [employer] MEDICARE SUPPLEMENT MEDICARE PART A & B [facility] MEDICARE SUPPLEMENT MEDICARE PART A & B [facility] MEDICARE SUPPLEMENT MEDICARE PART A & B [facility] MEDICARE SUPPLEMENT MEDICARE PART A & B [facility] MEDICARE SUPPLEMENT MEDICARE PART A & B Member Subscriber Plan / Payer (Ef fective 2005-Present) Name:Bella Henley Member ID:[id number] Relation to Subscriber:Self Name:Bella Henley Subscriber ID:[id number] Payer ID:[id number] Group ID:Not on file Type:Medicare Address: [employer] [address] [place] [id number] [facility] MEDICARE SUPPLEMENT MEDICARE PART A & B [facility] SUPPLEMENT Care Teams Mid Level Developer Relationship Specialty Start Date End Date Nick Gomez PA [address] [place] [address] PCP - General Physician Sheet Metal Helper 05/14/23 Additional Source Comments The information contained in this document represents components of the legal health record. It is not the complete legal health record.[facility]
--- OUTSIDE RECORDS SUMMARY | 2025-08-21 14:49 | XMS_ITS | Encounter Summary ---
Author Organization [facility] Address [address] [place] [address] Care Team Providers Care Playground Aide Name Role Phone Harris Gross MD Primary Care Provider [phone] Encounter Details Date Type Department Care Team (Late st Contact Info) Description 05/28/2025 Lab Requisition [facility] - Main Lab [address] [facility] [place] [address] Harris Gross MD [address] [place], [place] [phone] Essential (primary) hypertension Social History Tobacco Use [...] LAB CHEMISTRY METHOD 05/29/2025 10:23 AM EDT [facility] Potassium 4.4 3.5 - 5.5 mmol/L LAB CHEMISTRY METHOD 05/29/2025 10:23 AM [facility] LAB Chloride 104 96 - 110 mmol/L LAB CHEMISTRY METHOD 05/29/2025 10:23 AM [facility] LAB CO2 31 21 - 32 mmol/L LAB CHEMISTRY METHOD 05/29/2025 10:23 AM [facility] LAB Anion Gap 5 3 - 11 LAB CHEMISTRY METHOD 05/29/2025 10:23 AM [facility] LAB Glucose 76 70 - 100 mg/dL LAB CHEMISTRY METHOD 05/29/2025 10:23 AM [facility] LAB BUN 21 5 - 25 mg/dL LAB CHEMISTRY METHOD 05/29/2025 10:23 AM [facility] LAB Creatinine 0.86 0.50 - 1.10 mg/dL LAB CHEMISTRY METHOD 05/29/2025 10:23 AM [facility] LAB eGFR 67 >=60 mL/min/1. 73m2 LAB CHEMISTRY METHOD 05/29/2025 10:23 AM [facility] LAB Comment:Calculation based on the Chronic Kidney Disease Epidemiology Collaboration (CKD-EPI) equation refit without adjustment for race. BUN/Creatinine Ratio 24.4 LAB CHEMISTRY METHOD 05/29/2025 10:23 AM [facility] LAB Calcium 9.0 8.5 - 10.5 mg/dL LAB CHEMISTRY METHOD 05/29/2025 10:23 AM [facility] LAB Blood Venous blood specimen / Unknown Venipuncture / Unknown 05/29/2025 6:50 AM EDT 05/29/2025 9:14 AM EDT us Harris Gross MD LAB BLOOD ORDERABLES Final Resul t [facility] [address] [place] [address], * (ABNORMAL) Complete blood count (05/29/2025 6:50 AM EDT) Pathologist [facility] WBC 3.4(L) 4.8 - 10.8 K/mcL LAB HEMETOLOGY METHOD 05/29/2025 10:07 AM [facility] LAB RBC 2.70(L) 3.80 - 4.80 M/mcL LAB HEMETOLOGY METHOD 05/29/2025 10:07 AM [facility] LAB Hemoglobin 7.6(L) 11.5 - 16.0 g/dL LAB HEMETOLOGY METHOD 05/29/2025 10:07 AM [facility] LAB Hematocrit 25.2(L) 35.0 - 47.0 % LAB HEMETOLOGY METHOD 05/29/2025 10:07 AM [facility] LAB MCV 93.0 79.0 - 98.0 FL LAB HEMETOLOGY METHOD 05/29/2025 10:07 AM [facility] LAB MCH 28.0 27.0 - 32.0 pcg LAB HEMETOLOGY METHOD 05/29/2025 10:07 AM [facility] LAB MCHC 30.2(L) 32.0 - 37.0 g/dL LAB HEMETOLOGY METHOD 05/29/2025 10:07 AM [facility] LAB RDW 16.5(H) 11.0 - 15.0 % LAB HEMETOLOGY METHOD 05/29/2025 10:07 AM [facility] LAB Platelets 135 130 - 400 K/[facility] LAB HEMETOLOGY METHOD 05/29/2025 10:07 AM [facility] LAB MPV 12.0(H) 7.0 - 11.0 FL LAB HEMETOLOGY METHOD 05/29/2025 10:07 AM [facility] LAB NRBC 0.0 <1.0 % LAB HEMETOLOGY METHOD 05/29/2025 10:07 AM [facility] LAB NRBC Absolute 0.00 <0.10 K/[facility] LAB HEMETOLOGY METHOD 05/29/2025 10:07 AM EDT [facility] LAB Blood Venous blood specimen / Unknown Venipuncture / Unknown 05/29/2025 6:50 AM EDT 05/29/2025 9:14 AM EDT Harris Gross MD LAB BLOOD ORDERABLES Final Resul t [facility] [address] [place] [address], documented in this encounter Visit Diagnoses Diagnosis Essential (primary) hypertension Unspecified essential hypertension documented in this encounter Care Teams Playground Aide Relationship Specialty Start Date End Date Harris Gross MD [address] [place] [address] [address] [place] [address] PCP - General Geriatric Medicine 02/13/25 documented as of this encounter
--- OUTSIDE RECORDS SUMMARY | 2025-08-21 14:49 | XMS_ITS | Encounter Summary ---
Author Organization [facility] Address [address] [place] [address] Care Team Providers Care Cotton Jammer Name Role Phone Harris Gross MD Primary Care Provider [phone] Encounter Details Date Type Department Care Team (Late st Contact Info) Description 05/22/2025 Lab Requisition [facility] - Main Lab [address] [facility] [place] [address] Harris Gross MD [address] [place], [place] [phone] Essential (primary) hypertension; Anemia, unspecified Social History [...] LAB CHEMISTRY METHOD 05/22/2025 10:28 AM EDT [facility] ([facility] LAB Potassium 3.9 3.5 - 5.5 mmol/L [...] Resul t [facility] [address] [place] [address], * (ABNORMAL) Complete blood count (05/22/2025 5:27 AM EDT) [facility] Signature WBC 2.8(L) 4.8 - 10.8 [...] LAB HEMETOLOGY METHOD 05/22/2025 11:24 AM EDT [facility] ([facility]) [facility] LAB Blood Venous blood specimen / Unknown Venipuncture / Unknown 05/22/2025 5:27 AM EDT 05/22/2025 9:40 AM EDT us Harris Gross MD LAB BLOOD ORDERABLES Final Resul t [facility] ([facility] LAB [address] [place] [address], documented in this encounter Visit Diagnoses Diagnosis Essential (primary) hypertension Unspecified essential hypertension Anemia, unspecified documented in this encounter Care Teams Cotton Jammer Relationship Specialty Start Date End Date Harris Gross MD [address] [place] [address] [address] [place] [address] PCP - General Geriatric Medicine 02/13/25 documented as of this encounter
--- OUTSIDE RECORDS SUMMARY | 2025-08-21 14:49 | XMS_ITS | Encounter Summary ---
Author Organization [facility] Address [address] [place] [phone] Phone Care Team Providers Care Trimming Cutter Machine Name Role Phone Norm Bates Unavailable Verónica Nielson MD Unavailable [phone] Bandar Renteria MD Unavailable Luis Milner CNP Unavailable [phone] Martha Estrada MD Unavailable [phone] David Walton MD Unavailable [phone] Deny Saleh DO Primary Care Provider [phone] Bandar Renteria MD Primary Care Provider Nick Gomez Primary Care Provider + Encounter Details Date Type Department Care Team (Late st Contact Info) Description 12/14/2020 Transcribe Orders [facility] [address] [place] [address] Deny Saleh DO [address] [facility] [place], [place] [phone] Social History Tobacco Use Types Packs/Day Years [...] on filedocumented in this encounter Care Teams Trimming Cutter Machine Relationship Specialty Start Date End Date Nunudelfina Deny SawyerDO [address] [place] [address] [email or web address] PCP - General Internal Medicine 08/09/17 01/09/21 Bandar Renteria MD [address] [place] [address] [address] PCP - General Internal Medicine 01/10/21 05/13/23 Nick Gomez PA [address] [place] [address] PCP - General Physician Linoleum Layer Apprentice 05/14/23 Norm Bates PA [address] [place] [address] Historical LMR Provider 06/22/17 2 Verónica Nielson MD [address] [address] Historical LMR Provider 06/22/17 Bandar Renteria MD [address] [place] [address] [address] Historical LMR Provider 06/22/17 2 Luis Milner CNP [address] [address] [email or web address] Historical LMR Provider 06/22/17 09/11/21 Martha Estrada MD 4 [facility], [place] [address] [email or web address] Historical LMR Provider 06/22/17 David Walton MD [address] [place] [address] Historical LMR Provider 06/22/17 2 documented as of this encounter Additional Source Comments The information contained in this document represents components of the legal health record. It is not the complete legal health record.[facility]
--- OUTSIDE RECORDS SUMMARY | 2025-08-21 14:49 | XMS_ITS | Encounter Summary ---
Author Organization [facility] Address [address] [place] [address] Care Team Providers Care Mingle Operator Name Role Phone Harris Gross MD Primary Care Provider [phone] Encounter Details Date Type Department Care Team (Late st Contact Info) Description 06/13/2025 Lab Requisition [facility] - Main Lab [address] [facility] [place] [address] Harris Gross MD [address] [place], [place] [phone] Essential (primary) hypertension; Chronic obstructive pulmonary disease, [...] Resul t [facility] [address] [place] [address], * (ABNORMAL) Complete blood count (06/16/2025 5:01 AM EDT) WBC 3.2(L) 4.8 - 10.8 K/mcL LAB HEMETOLOGY METHOD 06/16/2025 10:06 AM EDT [facility] LAB RBC 2.80(L) 3.80 - 4.80 M/mcL LAB HEMETOLOGY METHOD 06/16/2025 10:06 AM EDT [facility] LAB Hemoglobin 8.3(L) 11.5 - 16.0 g/dL LAB HEMETOLOGY METHOD 06/16/2025 10:06 AM [facility] LAB Hematocrit 27.0(L) 35.0 - 47.0 % LAB HEMETOLOGY METHOD 06/16/2025 10:06 AM EDT [facility] LAB MCV 95.7 79.0 - 98.0 FL LAB HEMETOLOGY METHOD 06/16/2025 10:06 AM EDT [facility] LAB MCH 29.4 27.0 - 32.0 pcg LAB HEMETOLOGY METHOD 06/16/2025 10:06 AM [facility] LAB MCHC 30.7(L) 32.0 - 37.0 g/dL LAB HEMETOLOGY METHOD 06/16/2025 10:06 AM EDT [facility] LAB RDW 17.9(H) 11.0 - 15.0 % LAB HEMETOLOGY METHOD 06/16/2025 10:06 AM EDT [facility] LAB Platelets 119(L) 130 - 400 K/mcL LAB HEMETOLOGY METHOD 06/16/2025 10:06 AM [facility] LAB MPV 12.1(H) 7.0 - 11.0 FL LAB HEMETOLOGY METHOD 06/16/2025 10:06 AM EDT [facility] LAB NRBC 0.0 <1.0 % LAB HEMETOLOGY METHOD 06/16/2025 10:06 AM EDT [facility] LAB NRBC Absolute 0.00 <0.10 K/mcL LAB HEMETOLOGY METHOD 06/16/2025 10:06 AM EDT [facility] LAB Blood Venous blood specimen / Unknown Venipuncture / Unknown 06/16/2025 5:01 AM EDT 06/16/2025 9:03 AM EDT us Harris Gross MD LAB BLOOD ORDERABLES Final Resul t [facility] [address] [place] [address], documented in this encounter Visit Diagnoses Diagnosis Essential (primary) hypertension Unspecified essential hypertension Chronic obstructive pulmonary disease, unspecified (CMS/HCC V24, CMS/HCC V28) documented in this encounter Care Teams Mingle Operator Relationship Specialty Start Date End Date Harris rGoss MD [address] [place] [address] [address] [place] [address] PCP - General Geriatric Medicine 02/13/25 documented as of this encounter
--- OUTSIDE RECORDS SUMMARY | 2025-08-21 14:50 | XMS_ITS | Encounter Summary ---
Author Organization [facility] Address [address] [place] [address] Care Team Providers Care Land Classifier Name Role Phone Harris Gross MD Primary Care Provider [phone] Encounter Details Date Type Department Care Team (Late st Contact Info) Description 02/19/2025 Lab Requisition [facility] - Main Lab 299 [facility] [place] [address] Harris Gross MD [address] [place], [place] [phone] Other prison (current) drug therapy Social History Tobacco Use [...] AM EDT Other prison (current) drug therapy documented in this encounter Results * (ABNORMAL) Folate (02/19/2025 5:09 AM EDT) Folate >20.0(H) 2.8 - 17.0 ng/ml LAB CHEMISTRY METHOD 02/19/2025 8:26 AM EDT [facility] ([facility]) [facility] LAB Blood Venous blood specimen / Unknown Venipuncture / Unknown 02/19/2025 5:09 AM EDT 02/19/2025 6:45 AM EDT Harris Gross MD LAB BLOOD ORDERABLES Final Resul t [facility]) [facility] LAB [address] [place] [address], documented in this encounter Visit Diagnoses Diagnosis Other prison (current) drug therapy documented in this encounter Care Teams Land Classifier Relationship Specialty Start Date End Date Harris Gross MD [address] [place] [address] [address] [place] [address] PCP - General Geriatric Medicine 02/13/25 documented as of this encounter
--- OUTSIDE RECORDS SUMMARY | 2025-08-21 14:50 | XMS_ITS | Clinical Summary ---
Author Organization [address] Address [address] [place] [address] Phone Care Team Providers Care Addictions Counselor Name Role Phone Harris Gross MD Primary Care Provider [phone] Encounters Date Type Department Care Team Description 06/21/2025 Lab Requisition [facility] Lab [address] [place] [phone] Harris Gross MD Essential (primary) hypertension; Chronic obstructive pulmonary disease, unspecified (CMS/HCC V24, CMS/HCC V28) 06/13/2025 Lab Requisition [facility] Lab [address] [place] [address] Harris Gross MD Essential (primary) hypertension; Chronic obstructive pulmonary disease, unspecified (CMS/HCC V24, CMS/HCC V28) 06/06/2025 Lab Requisition [facility] Lab [address] [place] [address] Harris Gross MD Essential (primary) hypertension; Chronic obstructive pulmonary disease, unspecified (CMS/HCC V24, CMS/HCC V28) 05/30/2025 Lab Requisition [facility] Lab [address] [place] [phone] Harris Gross MD Essential (primary) hypertension; Chronic obstructive pulmonary disease, unspecified (CMS/HCC V24, CMS/HCC V28) 05/30/2025 Lab Requisition [facility] Lab [address] [place] [address] Harris Gross MD Frequency of micturition 05/28/2025 Lab Requisition [facility] - Main Lab [address] [place] [address] Harris Gross MD Essential (primary) hypertension 05/25/2025 Lab Requisition [facility] Main Lab [address] [place] [address] Harris Gross MD Essential (primary) hypertension; Chronic obstructive pulmonary disease, unspecified (CMS/HCC V24, CMS/HCC V28); Gastro-esophageal reflux disease without esophagitis; Anemia, unspecified 05/22/2025 Lab Requisition [facility] Lab [address] [place] [address] Harris Gross MD Essential (primary) hypertension; Anemia, unspecified from Last 3 Months Social History Tobacco [...] AM EDT Essential (primary) hypertension Anemia, unspecified from Last 3 Months Results * (ABNORMAL) Complete blood count (06/16/2025 5:01 AM EDT) Only the most recent of6 resultswithin the time period is included. WBC 3.2(L) 4.8 - 10.8 K/mcL LAB HEMETOLOGY METHOD 06/16/2025 10:06 AM [facility] LAB RBC 2.80(L) 3.80 - 4.80 M/mcL LAB HEMETOLOGY METHOD 06/16/2025 10:06 AM [facility] LAB Hemoglobin 8.3(L) 11.5 - 16.0 g/dL LAB HEMETOLOGY METHOD 06/16/2025 10:06 AM [facility] LAB Hematocrit 27.0(L) 35.0 - 47.0 % LAB HEMETOLOGY METHOD 06/16/2025 10:06 AM [facility] LAB MCV 95.7 79.0 - 98.0 FL LAB HEMETOLOGY METHOD 06/16/2025 10:06 AM [facility] LAB MCH 29.4 27.0 - 32.0 pcg LAB HEMETOLOGY METHOD 06/16/2025 10:06 AM [facility] LAB MCHC 30.7(L) 32.0 - 37.0 g/dL LAB HEMETOLOGY METHOD 06/16/2025 10:06 AM [facility] LAB RDW 17.9(H) 11.0 - 15.0 % LAB HEMETOLOGY METHOD 06/16/2025 10:06 AM [facility] LAB Platelets 119(L) 130 - 400 K/mcL LAB HEMETOLOGY METHOD 06/16/2025 10:06 AM [facility] LAB MPV 12.1(H) 7.0 - 11.0 FL LAB HEMETOLOGY METHOD 06/16/2025 10:06 AM EDT [facility] LAB NRBC 0.0 <1.0 % LAB [facility] 06/16/2025 10:06 AM EDT [facility] LAB NRBC Absolute 0.00 <0.10 K/mcL LAB HEMETOLOGY METHOD 06/16/2025 10:06 AM EDT [facility] LAB Blood Venous blood specimen / Unknown Venipuncture / Unknown 06/16/2025 5:01 AM EDT 06/16/2025 9:03 AM EDT Harirs Gross MD LAB BLOOD ORDERABLES Final Resul t [facility] LAB [address] [place] [address], [place] [phone] * (ABNORMAL) Basic metabolic panel (06/16/2025 5:01 AM EDT) Only the most recent of6 resultswithin the time period is included. Sodium 138 133 - 145 mmol/L LAB CHEMISTRY METHOD 06/16/2025 10:31 AM [facility] LAB Potassium 4.3 3.5 - 5.5 mmol/L LAB CHEMISTRY METHOD 06/16/2025 10:31 AM [facility] LAB Chloride 104 96 - 110 mmol/L LAB CHEMISTRY METHOD 06/16/2025 10:31 AM [facility] LAB CO2 28 21 - 32 mmol/L LAB CHEMISTRY METHOD 06/16/2025 10:31 AM [facility] LAB Anion Gap 6 3 - 11 LAB CHEMISTRY METHOD 06/16/2025 10:31 AM [facility] LAB Glucose 77 70 - 100 mg/dL LAB CHEMISTRY METHOD 06/16/2025 10:31 AM EDT [facility] BUN 27(H) 5 - 25 mg/dL LAB CHEMISTRY METHOD 06/16/2025 10:31 AM EDT [facility] LAB Creatinine 0.89 0.50 - 1.10 mg/dL LAB CHEMISTRY METHOD 06/16/2025 10:31 AM EDT [facility] LAB eGFR 64 >=60 mL/min/1. 73m2 LAB CHEMISTRY METHOD 06/16/2025 10:31 AM EDT [facility] LAB Comment:Calculation based on the Chronic Kidney Disease Epidemiology Collaboration (CKD-EPI) equation refit without adjustment for race. BUN/Creatinine Ratio 30.3 LAB CHEMISTRY METHOD 06/16/2025 10:31 AM [facility] LAB Calcium 9.3 8.5 - 10.5 mg/dL LAB CHEMISTRY METHOD 06/16/2025 10:31 AM [facility] LAB Blood Venous blood specimen / Unknown Venipuncture / Unknown 06/16/2025 5:01 AM EDT 06/16/2025 9:03 AM EDT us Harris Gross MD LAB BLOOD ORDERABLES Final Resul t [facility] LAB [address] [place] [address], [place] [phone] * Urinalysis with reflex microscopic (05/29/2025 8:00 AM EDT) Specific [place] Urine 1.016 1.003 - 1.030 LAB URINALYSIS - AUTOMATED METHOD 05/30/2025 8:36 AM T [facility] LAB pH, Urine 5.5 5.0 - 8.0 pH LAB URINALYSIS - AUTOMATED METHOD 05/30/2025 8:36 AM [facility] Leukocytes, Urine Negative Negative LAB URINALYSIS - AUTOMATED METHOD 05/30/2025 8:36 AM [facility] Nitrite, Urine Negative Negative LAB URINALYSIS - AUTOMATED METHOD 05/30/2025 8:36 AM EDT [facility] Protein, Urine Negative <=Trace mg/dL LAB URINALYSIS - AUTOMATED METHOD 05/30/2025 8:36 AM EDT [facility] LAB Glucose, Urine Negative Negative mg/dL LAB URINALYSIS - AUTOMATED METHOD 05/30/2025 8:36 AM T [facility] Ketones, Urine Negative Negative mg/dL LAB URINALYSIS - AUTOMATED METHOD 05/30/2025 8:36 AM EDT [facility] LAB Urobilinogen, Urine 0.2 0.2 - 1.0 mg/dL LAB URINALYSIS - AUTOMATED METHOD 05/30/2025 8:36 AM T [facility] Bilirubin, Urine Negative Negative LAB URINALYSIS - AUTOMATED METHOD 05/30/2025 8:36 AM [facility] Blood, Urine Negative Negative LAB URINALYSIS - AUTOMATED METHOD 05/30/2025 8:36 AM [facility] Urine Urine specimen obtained by clean catch procedure / Unknown Non-blood Collection / Unknown 05/29/2025 8:00 AM EDT 05/30/2025 8:05 AM EDT us Harris Gross MD LAB URINE ORDERABLES Final Resul t [facility] [address] [place] [address], * (ABNORMAL) Culture urine (05/29/2025 8:00 AM EDT) Culture, Urine 10,000-49,000 CFU/mL Streptococcus viridans group(A) 06/03/2025 8:59 AM T [facility] LAB Comment: Susceptibility testing not [...] AM EDT 05/30/2025 8:05 AM EDT Narrative [facility] - 06/03/2025 8:59 AM EDT Additional colony types present in insignificant amounts. us Harris Gross MD LAB MICROBIOLOGY - GENERAL ORDER ROEL Final Result Performing Organization Address City/[facility]/ZIP Co de Phone Number [facility] [address] [place] [address], [place] [phone] * Iron and TIBC (05/26/2025 4:52 AM EDT) Iron 88 40 - 150 mcg/dL LAB CHEMISTRY METHOD 05/26/2025 12:56 PM EDT [facility] TIBC 358 250 - 450 mcg/dL LAB CHEMISTRY METHOD 05/26/2025 12:56 PM EDT [facility] Iron Saturation 25 15 - 50 % LAB CHEMISTRY METHOD 05/26/2025 12:56 PM EDT [facility] Blood Venous blood specimen / Unknown Venipuncture / Unknown 05/26/2025 4:52 AM EDT 05/26/2025 10:18 AM EDT us Harris Gross MD LAB BLOOD ORDERABLES Final Resul t Performing Organization Address City/[facility]/ZIP Co de Phone Number [facility] [address] [place] [address], [place] [phone] * Ferritin (05/26/2025 4:52 AM EDT) Ferritin 23 8 - 252 ng/mL LAB CHEMISTRY METHOD 05/26/2025 12:57 PM EDT [facility] Blood Venous blood specimen / Unknown Venipuncture / Unknown 05/26/2025 4:52 AM EDT 05/26/2025 10:18 AM EDT us Harris Gross MD LAB BLOOD ORDERABLES Final Resul t [facility] ([facility] LAB [address] [place] [address], [place] [phone] from Last 3 Months Insurance MEDICARE [facility] Advance Directives Documents on File Type Date Recorded Patient Nut Sorter Expl anation Health Care Decision (hx) 09/07/2023 HE ALTH CARE PROXY Health Care Decision (hx) 03/03/2023 HE ALTH CARE PROXY Care Teams Addictions Counselor Relationship Specialty Start Date End Date Harris Gross MD [address] [facility] [address] [place] [address] PCP - General Geriatric Medicine 02/13/25
--- OUTSIDE RECORDS SUMMARY | 2025-08-21 14:50 | XMS_ITS | Encounter Summary ---
Author Organization [facility] Address [address] [place] [address] Care Team Providers Care Pc Network Technician Name Role Phone Harris Gross MD Primary Care Provider [phone] Encounter Details Date Type Department Care Team (Late st Contact Info) Description 02/13/2025 Lab Requisition [facility] - Main Lab [address] [facility] [place] [address] Harris Gross MD [address] [place], [place] [id number] Vitamin D deficiency, unspecified; Gastrointestinal hemorrhage, unspecified; [...] 6:49 AM EDT) [facility] Vitamin B-12 391 250 - 900 pcg/mL LAB CHEMISTRY METHOD 02/13/2025 10:12 AM EDT [facility] Blood Venous blood specimen / Unknown Venipuncture / Unknown 02/13/2025 6:49 AM EDT 02/13/2025 8:56 AM EDT us Harris Gross MD LAB BLOOD ORDERABLES Final Resul t Performing Organization Address [facility] [address]/ZIP Co de Phone Number [facility] [address] [place] [address], [place] [phone] * Vitamin D 25 hydroxy (02/13/2025 6:49 AM EDT) [facility] Vit D, 25-Hydroxy 57.4 30.0 - 80.0 ng/mL LAB CHEMISTRY METHOD 02/13/2025 11:18 AM EDT [facility] Blood Venous blood specimen / Unknown Venipuncture / Unknown 02/13/2025 6:49 AM EDT 02/13/2025 8:56 AM EDT us Harris Gross MD LAB BLOOD ORDERABLES Final Resul t [facility] [address] [place] [address], [place] [phone] * Thyroid stimulating hormone (02/13/2025 6:49 AM EDT) [facility] TSH 1.12 0.40 - 4.00 mcIU/mL LAB CHEMISTRY METHOD 02/13/2025 11:19 AM EDT [facility] Blood Venous blood specimen / Unknown Venipuncture / Unknown 02/13/2025 6:49 AM EDT 02/13/2025 8:56 AM EDT Harris Gross MD LAB BLOOD ORDERABLES Final Resul t [facility] [address] [place] [address], [place] [phone] * (ABNORMAL) Comprehensive metabolic panel (02/13/2025 6:49 AM EDT) Sodium 140 133 - 145 mmol/L LAB CHEMISTRY METHOD 02/13/2025 10:12 AM [facility] Potassium 3.8 3.5 - 5.5 mmol/L LAB CHEMISTRY METHOD 02/13/2025 10:12 AM [facility] Chloride 105 96 - 110 mmol/L LAB CHEMISTRY METHOD 02/13/2025 10:12 AM [facility] CO2 29 21 - 32 mmol/L LAB CHEMISTRY METHOD 02/13/2025 10:12 AM [facility] Anion Gap 6 3 - 11 LAB CHEMISTRY METHOD 02/13/2025 10:12 AM [facility] Glucose 91 70 - 100 mg/dL LAB CHEMISTRY METHOD 02/13/2025 10:12 AM [facility] BUN 24 5 - 25 mg/dL LAB CHEMISTRY METHOD 02/13/2025 10:12 AM [facility] Creatinine 0.88 0.50 - 1.10 mg/dL LAB CHEMISTRY METHOD 02/13/2025 10:12 AM [facility] eGFR 65 >=60 mL/min/1. 73m2 LAB CHEMISTRY METHOD 02/13/2025 10:12 AM [facility] Comment:Calculation based on the Chronic Kidney Disease Epidemiology Collaboration (CKD-EPI) equation refit without adjustment for race. BUN/Creatinine Ratio 27.3 LAB CHEMISTRY METHOD 02/13/2025 10:12 AM [facility] Calcium 9.2 8.5 - 10.5 mg/dL LAB CHEMISTRY METHOD 02/13/2025 10:12 AM [facility] AST (SGOT) 14 10 - 42 unit/L LAB CHEMISTRY METHOD 02/13/2025 10:12 AM [facility] ALT (SGPT) 14 10 - 60 unit/L LAB CHEMISTRY METHOD 02/13/2025 10:12 AM [facility] Alkaline Phosphatase 88 42 - 121 unit/L LAB CHEMISTRY METHOD 02/13/2025 10:12 AM [facility] Total Protein 5.9(L) 6.0 - 8.0 g/dL LAB CHEMISTRY METHOD 02/13/2025 10:12 AM [facility] Albumin 3.1(L) 3.2 - 5.0 g/dL LAB CHEMISTRY METHOD 02/13/2025 10:12 AM [facility] Total Bilirubin 0.4 0.0 - 1.4 mg/dL LAB CHEMISTRY METHOD 02/13/2025 10:12 AM [facility] Blood Venous blood specimen / Unknown Venipuncture / Unknown 02/13/2025 6:49 AM EDT 02/13/2025 8:56 AM EDT us Harris Gross MD LAB BLOOD ORDERABLES Final Resul t [facility] [address] [place] [address], * (ABNORMAL) Complete blood count (02/13/2025 6:49 AM EDT) WBC 3.3(L) 4.8 - 10.8 K/mcL LAB HEMETOLOGY METHOD 02/13/2025 9:07 AM [facility] RBC 2.90(L) 3.80 - 4.80 M/mcL LAB HEMETOLOGY METHOD 02/13/2025 9:07 AM [facility] Hemoglobin 8.4(L) 11.5 - 16.0 g/dL LAB HEMETOLOGY METHOD 02/13/2025 9:07 AM [facility] Hematocrit 27.2(L) 35.0 - 47.0 % LAB HEMETOLOGY METHOD 02/13/2025 9:07 AM [facility] MCV 94.8 79.0 - 98.0 FL LAB HEMETOLOGY METHOD 02/13/2025 9:07 AM [facility] MCH 29.3 27.0 - 32.0 pcg LAB HEMETOLOGY METHOD 02/13/2025 9:07 AM [facility] MCHC 30.9(L) 32.0 - 37.0 g/dL LAB HEMETOLOGY METHOD 02/13/2025 9:07 AM [facility] RDW 14.9 11.0 - 15.0 % LAB HEMETOLOGY METHOD 02/13/2025 9:07 AM [facility] Platelets 132 130 - 400 K/mcL LAB HEMETOLOGY METHOD 02/13/2025 9:07 AM [facility] MPV 11.8(H) 7.0 - 11.0 FL LAB HEMETOLOGY METHOD 02/13/2025 9:07 AM [facility] NRBC 0.0 <1.0 % LAB HEMETOLOGY METHOD 02/13/2025 9:07 AM [facility] NRBC Absolute 0.00 <0.10 K/mcL LAB HEMETOLOGY METHOD 02/13/2025 9:07 AM [facility] Blood Venous blood specimen / Unknown Venipuncture / Unknown 02/13/2025 6:49 AM EDT 02/13/2025 8:56 AM EDT Harris Gross MD LAB BLOOD ORDERABLES Final Resul t [facility] [address] [place] [address], documented in this encounter Visit Diagnoses Diagnosis Vitamin D deficiency, unspecified Gastrointestinal hemorrhage, unspecified Aphagia Anorexia documented in this encounter Care Teams Pc Network Technician Relationship Specialty Start Date End Date Harris Gross MD [address] [place] [address] [address] [place] [address] PCP - General Geriatric Medicine 02/13/25 documented as of this encounter
--- NOTE | 2025-08-21 14:59 | PM.IMHP ---
History of Present Illness Date of Service: 08/21/25 Chief Complaint: rectal bleed 84 years old woman with past medical history significant for severe status post TAVR, CVA, essential hypertension, hyperlipidemia and COPD, chronic anemia had EGD in February 2025 and was unremakable. She has remote history of hemorrhoid and constipation. She presents today after noting blood in the stool with clot. No abdominal pain. Hemoglobin is 8.4 today which is essentially unchanged from that from mid june and has not had further bleed. She takes Plavix. Review of Systems Review of Systems: Gen: no fever Resp: no sob, no cough CV: no chest, no NATHAN, no leg edema GI: No n/v, no abd pain, rectal bleed as above Neuro: No confusion Yes all other systems are reviewed and are negative [facility] Medical History Mood disorder Severe aortic stenosis Dizziness Nonspecific low blood pressure reading Annual wellness visit Acute diverticulitis LLQ abdominal pain Contusion of right lower leg Otitis media Cough Bronchitis Pelvic pain Chronic cough Elevated IgE level Status post fall Hip pain Post-menopausal URI (upper respiratory infection) Sensation of pressure in bladder area Chest pain Elevated blood sugar Oral candidiasis GERD (gastroesophageal reflux disease) Pulmonary nodule HTN (hypertension) Heart palpitations Constipation Breast cancer screening Breast pain, left Elevated vitamin B12 level Neck muscle spasm Strain of neck muscle Low back pain Pubic ramus fracture Sore throat Skin tear of upper arm without complication Head injury, acute, without loss of consciousness Fall Medication noncompliance due to cognitive impairment RLQ abdominal pain Sinusitis Flu syndrome Precordial chest pain Atypical chest pain Cold intolerance Former smoker Abnormal lung sounds Fever Bilateral calf pain Nausea Left lower quadrant abdominal pain Dysuria Fatigue Lower extremity weakness Aortic stenosis Obstipation Dark stools Lower abdominal pain Gastroenteritis Neck pain on right side Back pain Rhinitis Elevated BP without diagnosis of hypertension Non-rheumatic aortic stenosis Diverticulitis GERD (gastroesophageal reflux disease) Cat scratch Cat bite Epigastric discomfort Diarrhea Neuropathy Arthritis GERD (gastroesophageal reflux disease) HTN (hypertension) Irritable bowel Heart murmur Family History Father No problems noted. Mother No problems noted. Surgical History S/P AVR S/P TAVR (transcatheter aortic valve replacement) Hx of esophagogastroduodenoscopy Hx of colonoscopy History of tonsillectomy History of appendectomy Social History Household Members: Children Housing: House Are you a primary lawn care worker to a significant other at home: No Do you presently have visiting nurse or other home services: Yes Alcohol intake: never Comment: Pt still ambulate on her own even though alarms are on Patient Tobacco Use Status: Former Tobacco user Tobacco use type: Cigarette Years Smoked: 55 Smoked in Last 30 Days: No e-Cigarette/Vaping Use: Never Used Second Hand Smoke Exposure: No Currently Displaying Signs/Symptoms of Drug Intoxication Withdrawal: No Advance Directives: Yes Advance Directives on File: Yes Advance Directives Date on File: 09/21/23 service: No Current occupational status: retired Cognitive needs: No Hearing needs: No Vision needs: Yes (glasses) Meds Allergies Allergy/AdvReac Type Severity Reaction Status Date / Time buspirone Allergy Intermediate Rash Verified 08/21/25 10:50 Sulfa (Sulfonamide Allergy Intermediate RASH Verified 08/21/25 10:50 Antibiotics) cefuroxime Allergy Unknown Unknown Verified 08/21/25 10:50 garlic (GARLIC) Allergy Unknown PER H&P Verified 08/21/25 10:50 metronidazole (From FLAGYL) Allergy Unknown OCULAR Verified 08/21/25 10:50 MIGRAINES penicillamine Allergy Unknown Unknown Verified 08/21/25 10:50 ciprofloxacin AdvReac Intermediate neuropathic Verified 08/21/25 10:50 pain lisinopril AdvReac Intermediate Cough Verified 08/21/25 10:50 loratadine (From Claritin) AdvReac Mild Fatigued Verified 08/21/25 10:50 nitrofurantoin AdvReac Mild GI side Verified 08/21/25 10:50 effects cefuroxime Allergy Intermediate wheezy Uncoded 08/08/25 14:51 cough/itch flagyl Allergy Unknown Unknown Uncoded 08/08/25 14:51 From KEFLEX Allergy Unknown RASH Uncoded 08/08/25 14:51 Metoprolol Tartrate Allergy Unknown Unknown Uncoded 08/08/25 14:51 Sulfacet-R Allergy Unknown Unknown Uncoded 08/08/25 14:51 Home Medications ?Medication ?Instructions ?Recorded ?Confirmed ?Last Taken ?Type acetaminophen 325 mg tablet 325 mg PO Q4H PRN Pain 02/10/25 08/21/25 Unknown History citalopram 20 mg tablet (Celexa) 20 mg PO BID 05/14/25 08/21/25 08/20/25 History alprazolam 0.25 mg tablet 0.125 mg PO BID 06/17/25 08/21/25 08/20/25 History bupropion HCl 75 mg tablet 75 mg PO DAILY 06/27/25 08/21/25 Unknown History albuterol sulfate 90 mcg/actuation 2 puff inhalation Q4H PRN wheezing 08/21/25 08/21/25 Unknown History aerosol inhaler coenzyme Q10 100 mg capsule 100 mg PO DAILY 08/21/25 08/21/25 08/20/25 History docusate sodium 100 mg capsule 100 mg PO BEDTIME PRN constipation 08/21/25 08/21/25 Unknown History fluticasone propionate 115 2 puff inhalation Q12H 08/21/25 08/21/25 Unknown History mcg-salmeterol 21 mcg/actuation HFA inhaler (Advair HFA) folic acid 400 mcg tablet 0.4 mg PO DAILY 08/21/25 08/21/25 Unknown History gabapentin 100 mg capsule 100 mg PO BEDTIME 08/21/25 08/21/25 Unknown History loratadine 10 mg tablet 10 mg PO DAILY PRN ALLERGIES 08/21/25 08/21/25 Unknown History mirabegron 50 mg tablet,extended 50 mg PO DAILY 08/21/25 08/21/25 08/20/25 History release 24 hr (Myrbetriq) simethicone 80 mg chewable tablet 80 mg PO TID PRN abdominal 08/21/25 08/21/25 Unknown History distention Physical Exam Vital Signs and Narrative: Vital Signs: Last Vital Signs Temp 97.9 F 08/21/25 14:00 Pulse 85 08/21/25 14:00 Resp 18 08/21/25 10:47 BP 159/76 H 08/21/25 14:00 Pulse Ox 97 08/21/25 14:00 O2 Del Method Room Air 08/21/25 14:00 BMI result Body Mass Index 26.1 Results Labs 08/22/25 06:00 08/22/25 06:00 Labs: Laboratory Results - last 24 hr 08/21/25 08/21/25 11:30 12:29 MCV 89.0 MCH 27.9 MCHC 31.3 RDW 14.4 Plt Count 150 L MPV 11.0 Immature Gran % (Auto) 0.6 H Neut % (Auto) 69.4 Lymph % (Auto) 16.9 L [place] % (Auto) 8.6 Eos % (Auto) 3.6 Baso % (Auto) 0.9 Lymph # (Auto) 0.6 L [place] # (Auto) 0.3 Eos # (Auto) 0.1 Baso # (Auto) 0.0 Abs Immat Gran (auto) 0.02 Absolute Neuts (auto) 2.4 Absolute Nucleated RBC 0.000 Nucleated RBC % (auto) 0.0 PT 12.8 INR 1.0 Anion Gap 9 L Estim Creat Clear Calc 42.9 Estimated GFR 53 Random Glucose 91 Calcium 9.5 Total Bilirubin 0.4 Direct Bilirubin 0.2 AST 23 ALT 13 Alkaline Phosphatase 88 Total Protein 6.9 Albumin 4.3 Stool Occult Blood POSITIVE Blood Type O Positive Antibody Screen POSITIVE Antibody Identification Anti-E Antigen Identification E Antigen - NEGATIVE Blood Bank Comment Specimen Imaging Radiologist's Impressions: Impressions Abdomen/Pelvis CT 08/21/25 13:33 IMPRESSION: 1. Large amount of stool throughout the colon. Sigmoid diverticulosis without evidence of diverticulitis. 2. 3.4 cm infrarenal abdominal aortic aneurysm. 3. Left nephrolithiasis as described. Electronically signed by: Anatoliy Elias MD 08/21/2025 02:06 PM [facility] Assessment and Plan (1) Hematochezia: Status: Acute (2) Constipation: Qualifiers: Constipation type: slow transit constipation Qualified Code(s): K59.01 - Slow transit constipation Status: Acute (3) Anemia: Qualifiers: Anemia type: iron deficiency Iron deficiency anemia type: unspecified iron deficiency Qualified Code(s): D50.9 - Iron deficiency anemia, unspecified Status: Acute (4) Pancytopenia: Status: Chronic Plan 84 years old woman with past medical history significant for severe status post TAVR, CVA, essential hypertension, hyperlipidemia and COPD, chronic anemia had EGD in February 2025 and was unremakable. She is here with rectal bleed, stable H/H Acute on chronic anemia rectal bleed, H'/H unchanged from previous, Ddx: diverticular bleed, hemorrhoid and others, serial H/H and if stable, will susgest likely hemorrhoid Gi consult Liquid diet hold plavixx HTN no longer on meds History of CVA plavix, now on hold mood disorder xanax, celexa and bupropion dvt prophylaxis - mechanical due to gi bleed full code reason for continued hospitalization: dispo planning Quality Stroke Does the patient have a stroke diagnosis?: No VTE Prior VTE?: No VTE Risk Level:: Medical - moderate - high VTE Device Contraindication: N/A - Device Ordered VTE Drug Contraindication: Treatment Not Tolerated
[2025-08-21 15:37] LABS: Appearance Urine Cloudy; Glucose Urine UA Negative (Negative); PH 5.5 (5.0-9.0); Specific Gravity - Urine >= 1.030 (1.005-1.025); UMIC TRIGGER UACC YES
[2025-08-21 15:42] VITALS: BP 163/79; PULSE 88; RESP 16; TEMP 36.4; O2SAT 96
--- NOTE | 2025-08-21 16:36 | PHA.MEDREC ---
Addendum entered by Omer Velazquez, Lazaro 08/21/25 17:29: Spoke to son again. went over medications. Stopped taking losartan a couple months ago. Restarted gabapentin 100 hs and using old pill from last year. Solifenacin was suppose to be started today at bedtime in addition to mirabegron in am but patient didnt start solifenacin yet as she came here. Patient supposeto be on advair inhaher but hasnt taken in a while Addendum entered by Elizabeth Llanos RP 08/21/25 16:50: reviewed by [facility], took gabapentin off - not on PDMP. Addendum entered by Medhat Seymour 08/21/25 16:49: Patient and son confirmed pt taking her Alprazolam 0.25mg tab 1/2 tab BID instead of 1 full tab QD to prolong the effects for the pt. Original Note: Pharmacy Consult ? Medication Reconciliation Pharmacy has completed the medication reconciliation. Spoke with pt and she confirmed most of her mediations except for Bupropion and Dicyclomine and told us to call her son to verify those meds. Spoke with son and he was able to confirm the pt medications. Pt son confirmed pt taking Bupropion 75mg tabs once daily and is not sure if pt is still taking Dicyclomine or not; I took that off the med rec. Pt son states he just went and picked up Myrbetriq 50mg, Gabapentin 100mg caps and Solifenacin 5mg tab at [facility]; called [facility] and they state Mybretiq was picked up yesterday (08/20), Gabapentin 100mg caps haven't been filled since 08/19/2024 and they had no claims for Solifenacin being filled at their facility.
[2025-08-21] MEDS: 0.9 % Sodium Chloride Flush 3 ML SYRINGE IVFLUSH (17:16)
[2025-08-21 18:00] VITALS: BP 173/81; PULSE 89; RESP 18; TEMP 36.6; O2SAT 94
--- NOTE | 2025-08-21 18:32 | P.EN_ITS ---
Event Note Date of Service: 08/21/25 Event Note: GI Consult-Full note dictated-History from the patient, the EMR, her RN, and her son Hi at the bedside Imp: Single episode of painless hematochezia with a BM in this 84 yo female on Plavix with chronic IBS symptoms. She has had no further episodes of bleeding si nce the single one at home this morning. She has a chronic anemia but there has been no change from her baseline. Her colonoscopy in 2022 revealed only hemorrhoids and diverticulosis. She also had a nonrevealing upper endoscopy earlier this year. CT scan revealed only known diverticulosis. Diff Dx: Hemorrhoidal or other perianal source of bleeding. Does not sound worrisome for a diverticular bleed or any other worrisome pathology. Rec: Observe. Clear liquids for now. F/U Hgb. Hold Plavix for a few days if OK with Cardiology(she sees Dr. Callahan). If things are stable I would recommend advancing her diet by tomorrow. I do not think she needs a colonoscopy or upper endoscopy at this time. She can use Preparation H suppositories and/or cream as needed. Please contact me if I can be of any further assistance during her hospitalization. The patient and her son were comfortable with this plan. Thanks Time Spent With Patient Time: Total time managing care of this patient today ____ minutes.
[2025-08-21 20:55] VITALS: BMI 27.4
[2025-08-21 21:23] VITALS: BP 154/79; PULSE 88; RESP 18; TEMP 37.1; O2SAT 95
[2025-08-21] MEDS: Lactated Ringers 1,000 ML 80 ML IVCONT (22:11)
--- NOTE | 2025-08-22 01:39 | CONS_ITS ---
DATE OF SERVICE: 08/21/2025 REASON FOR CONSULTATION: Rectal bleeding. HISTORY OF PRESENT ILLNESS: This has been obtained from the patient, her son, Hi, her RN, and the medical record. The patient is an 84-year-old female well known to me with a longstanding history of irritable bowel syndrome and some reflux. She had called our office yesterday complaining of some problem with cleaning herself after a bowel movement. She describes that she was unable to clean all the stool from the rectal area. At that time, she was not having any bleeding. She does have a longstanding history of GI complaints and at times could be quite focused and fixated on these GI complaints. In any event, today she describes having a small bowel movement, but with associated bright red blood in the toilet bowl. This was described as fresh blood. There was no melena. There was no associated rectal pain nor any particular straining. She describes that she has not had any further bleeding after that at home nor in the ER. She had a colonoscopy in 2022 with the finding of only some diverticulosis and internal hemorrhoids. She had an upper endoscopy at that time, as well as earlier this year, which were nonrevealing. The patient does take Plavix, but denies any other blood thinners or NSAIDs. She has had a chronic anemia dating back to at least 2022. Her hemoglobin in the ER when she arrived was 8.4. It was 8.6 in June. It had been 9.1 earlier in June. It had been down to 7.6 in May. She denies any recent nausea, vomiting, nor abdominal pain. Her ER rectal exam by the ER provider describes some maroon blood on her stool, which was guaiac positive. MEDICATIONS: At home included acetaminophen, alprazolam, bupropion, vitamin D, citalopram, clopidogrel, Colace, Advair, folic acid, gabapentin, lidocaine patch, loratadine, Myrbetriq, pantoprazole, simethicone. PAST MEDICAL HISTORY: Irritable bowel syndrome. Gastroesophageal reflux. Negative colonoscopy and upper endoscopy in 2022 and negative upper endoscopy earlier this year. History of previous CVA. Valvular heart disease, status post TAVR. Hypertension. Anxiety and depression. Migraines. Normal-pressure hydrocephalus for which she sees Dr. White. COPD. Diverticulitis. Multiple previous colonoscopies and upper endoscopies in addition to the upper endoscopy earlier this year and upper endoscopy and colonoscopy in 2022. She has had appendectomy, tonsillectomy, D and C, and a small bowel obstruction. FAMILY HISTORY: Notable for father having had colon polyps, a sibling with colon polyps, and no family history of colorectal cancer. SOCIAL HISTORY: She does not smoke. She lives with her son. She is a . She does not use any alcohol. REVIEW OF SYSTEMS: CONSTITUTIONAL: She reports a somewhat diminished appetite. CARDIAC: No chest pain. PULMONARY: No coughing or hemoptysis. GI: As above. PHYSICAL EXAMINATION: GENERAL: The patient is a pleasant elderly alert female, in no distress. SKIN: Warm and dry. HEENT: Anicteric sclerae. Moist mucous membranes. ABDOMEN: Soft, nondistended, nontender without organomegaly or mass. LABORATORY DATA: As above. White blood cell count 3.4, hemoglobin 8.4, compared to 8.6 in June. MCV 89, platelets 150,000. PT 12.8 with INR 1.0. Normal chemistries with a BUN of 26 and creatinine of 1.0 compared to 27 and 0.8 in June. Normal liver profile with albumin of 4.3. Stool was Hemoccult positive. She did have a CT scan of the abdomen and pelvis that described a large amount of stool throughout the colon and some sigmoid diverticulosis, but without any sign of diverticulitis nor colitis. IMPRESSION: Given the patient's clinical history of her single episode of hematochezia and her previous GI studies, this certainly speaks for a perianal source of bleeding such as a hemorrhoid or other localized irritation from a component of constipation. She does have a longstanding history of irritable bowel syndrome and in fact yesterday had called us with the fact that she was having trouble cleaning herself. Therefore, I suspect she definitely may have irritated something by trying to clean herself too vigorously. In any event, she seems very stable at the present time. She has not had any drop in hemoglobin nor any sign of active bleeding since the single episode she had at home. As such, I would think she will not need a colonoscopy or upper endoscopy while she is here given her clinical history plus the fact that she has had these studies done within the past 1-2 years. At this point, I would treat her conservatively. I would keep her on clear liquids today, but then advance her diet if things remain stable. I would hold the Plavix for a few days if that is okay with Cardiology. She sees Dr. Callahan for that. If things are stable, I would think her diet can be advanced by tomorrow. I do not think she needs a colonoscopy or upper endoscopy at this time. She could use preparation H suppositories and/or cream as needed also. As I advised her and her son today, I would hold off on doing any further procedures as an outpatient also unless the situation changes. Please contact me if I can be of any further assistance during the hospitalization. The patient and her son were both comfortable with the plan. Thank you for the consultation. MD MILI Mcnulty/JUAN / [phone] SVETLANA
[2025-08-22 03:43] VITALS: BP 150/60; PULSE 86; RESP 18; TEMP 36; O2SAT 95
[2025-08-22 06:44] LABS: Hematocrit 24.6 % (37.0-47.0); Hemoglobin 7.8 g/dl (12.0-16.0); Mean Corpuscular HGB Conc 31.7 g/dl (31.0-35.0); Mean Corpuscular Hemoglobin 28.1 pg (27.0-33.0); Mean Corpuscular Volume 88.5 fL (80.0-98.0); NRBC Abs Auto 0.000 X10*3/uL (0.0-0.012); NRBC Pct Auto 0.0 /100WBC (0.0-0.2); PLT CLUMP 1; Red Blood Count 2.78 X10*6/uL (4.20-5.50)
[2025-08-22 06:45] LABS: Platelet Count 141 X10*3/uL (160-400); White Blood Count 2.9 X10*3/uL (4.8-10.8)
[2025-08-22 07:03] LABS: Anion Gap 10 (12-20); Blood Urea Nitrogen 19 mg/dL (9-16); Calcium 9.2 mg/dL (8.4-10.2); Carbon Dioxide 27 mmol/L (22-29); Chloride 105 mmol/L (96-108); Creatinine Clr Calc Pharmacy 48.7; Estimated Glomerular Filt Rate 60; Potassium 4.0 mmol/L (3.3-5.1); Sodium 138 mmol/L (135-145)
[2025-08-22 07:43] VITALS: BP 113/57; PULSE 90; RESP 16; TEMP 36.4; O2SAT 93
[2025-08-22] MEDS: Mirabegron 50 MG TAB.ER.24H PO (09:26)
--- NOTE | 2025-08-22 10:10 | HO.PM.IMPN ---
Subjective Subjective Date of Service: 08/22/25 Interval History: No further bleeding H/H slightly lower Physical Exam Vital Signs: Vital Signs: Last Vital Signs Temp 97.6 F 08/22/25 07:43 Pulse 90 08/22/25 07:43 Resp 16 08/22/25 07:43 BP 113/57 L 08/22/25 07:43 Pulse Ox 93 08/22/25 07:43 O2 Del Method Room Air 08/22/25 07:43 BMI result Body Mass Index 27.4 Const: Other: General: AO X 3, no acute distress Resp: CTA bilateral CVS: S1,S2,RRR GI: +BS, NT, no distention Skin: No rash Neuro: motor grossly intact Psych: appropriate affect Objective Data Active Medications Acetaminophen (Acetaminophen 325 Mg Tablet) 650 mg PO Q6H PRN PRN Reason: Pain, Mild 1-3,fever,headache Last Admin: 08/22/25 03:37 Dose: 650 mg Documented By: MONIQUE Albuterol Sulfate (Albuterol Sulfate 90 Mcg 8 Gm Inhaler) 2 puff INHALE Q4H PRN PRN Reason: Wheezing Alprazolam (Alprazolam 0.25 Mg Tablet) 0.125 mg PO BID [facility] Last Admin: 08/22/25 09:26 Dose: 0.125 mg Documented By: GRACE Bupropion HCl (Bupropion Hcl 75 Mg Tablet) 75 mg PO DAILY [facility] Last Admin: 08/22/25 09:26 Dose: 75 mg Documented By: GRACE Calcium Carbonate (Calcium Carbonate 750 Mg Tab.Chew) 750 mg PO Q4H PRN PRN Reason: Heartburn Docusate Sodium (Docusate Sodium 100 Mg Capsule) 100 mg PO BEDTIME PRN PRN Reason: Constipation Escitalopram Oxalate (Escitalopram Oxalate 10 Mg Tablet) 10 mg PO BID [facility] Last Admin: 08/22/25 09:26 Dose: 10 mg Documented By: GRACE Fluticasone/Vilanterol (Fluticasone/Vilanterol 100/25 Blst.W.Dev) 1 puff INHALE RDAILY [facility] Gabapentin (Gabapentin 100 Mg Capsule) 100 mg PO BEDTIME [facility] Lactated Ringer's (Lr) 1,000 mls @ 80 mls/hr IVCONT .[id number] [facility] Last Admin: 08/21/25 22:11 Dose: 80 mls/hr Documented By: MONIQUE Loratadine (Loratadine 10 Mg Tablet) 10 mg PO DAILY PRN PRN Reason: ALLERGIES Magnesium Hydroxide (Milk Of Magnesia 30 Ml Oral.Susp) 30 ml PO DAILY PRN PRN Reason: Constipation Melatonin (Melatonin 3 Mg Tablet) 6 mg PO BEDTIME PRN PRN Reason: Insomnia Mirabegron (Mirabegron 50 Mg Tab.Er.24h) 50 mg PO DAILY [facility] Last Admin: 08/22/25 09:26 Dose: 50 mg Documented By: GRACE Omeprazole (Omeprazole 20 Mg Capsule.Dr) 20 mg PO DAILY@0630 [facility] Last Admin: 08/22/25 06:26 Dose: 20 mg Documented By: MONIQUE Ondansetron HCl (Ondansetron Hcl 4 Mg/2 Ml Vial) 4 mg IVPUSH Q8H PRN PRN Reason: Nausea and Vomiting Last Admin: 08/22/25 02:11 Dose: 4 mg Documented By: BRITTNEE Polyethylene Glycol (Polyethylene Glycol 3350 17 Gm Powd.Pack) 17 gm PO DAILY PRN PRN Reason: Constipation Simethicone (Simethicone 80 Mg Tab.Chew) 80 mg PO TID PRN PRN Reason: abdominal distention Sodium Chloride (0.9 % Sodium Chloride Flush 3 Ml Syringe) 3 ml IVFLUSH QSHIFT [facility] Last Admin: 08/22/25 09:27 Dose: Not Given Documented By: GRACE Non-Admin Reason: IV Running Vitamin D (Cholecalciferol (Vitamin D3) 25 Mcg Tablet) 50 mcg PO DAILY [facility] Last Admin: 08/22/25 09:26 Dose: 50 mcg Documented By: GRACE Labs 08/24/25 05:50 08/22/25 06:00 Labs: Laboratory Results - last 24 hr 08/21/25 08/21/25 08/21/25 11:30 12:29 15:26 MCV 89.0 MCH 27.9 MCHC 31.3 RDW 14.4 Plt Count 150 L MPV 11.0 Immature Gran % (Auto) 0.6 H Neut % (Auto) 69.4 Lymph % (Auto) 16.9 L Jerome % (Auto) 8.6 Eos % (Auto) 3.6 Baso % (Auto) 0.9 Lymph # (Auto) 0.6 L Jerome # (Auto) 0.3 Eos # (Auto) 0.1 Baso # (Auto) 0.0 Abs Immat Gran (auto) 0.02 Absolute Neuts (auto) 2.4 Absolute Nucleated RBC 0.000 Nucleated RBC % (auto) 0.0 PT 12.8 INR 1.0 Anion Gap 9 L Estim Creat Clear Calc 42.9 Estimated GFR 53 Random Glucose 91 Calcium 9.5 Total Bilirubin 0.4 Direct Bilirubin 0.2 AST 23 ALT 13 Alkaline Phosphatase 88 Total Protein 6.9 Albumin 4.3 Urine Color Yellow Urine Appearance Cloudy Urine pH 5.5 Ur Specific Marvell >= 1.030 H Urine Protein Negative Urine Glucose (UA) Negative Urine Ketones Negative Urine Blood Moderate (2+) H Urine Nitrite Negative Ur Leukocyte Esterase Negative Urine RBC 3-5 H Urine WBC 0-5 Ur Squamous Epith Cells 0-2 Calcium Oxalate Crystal Present Urine Bacteria None Seen Hyaline Casts 0-2 Stool Occult Blood POSITIVE Blood Type O Positive Antibody Screen POSITIVE Antibody Identification Anti-E Antigen Identification E Antigen - NEGATIVE Crossmatch ([facility]) See Detail Blood Bank Comment Specimen 08/22/25 06:00 MCV 88.5 MCH 28.1 MCHC 31.7 RDW 14.0 Plt Count 141 L MPV 11.2 Immature Gran % (Auto) Neut % (Auto) Lymph % (Auto) Jerome % (Auto) Eos % (Auto) Baso % (Auto) Lymph # (Auto) Jerome # (Auto) Eos # (Auto) Baso # (Auto) Abs Immat Gran (auto) Absolute Neuts (auto) Absolute Nucleated RBC 0.000 Nucleated RBC % (auto) 0.0 PT INR Anion Gap 10 L Estim Creat Clear Calc 48.7 Estimated GFR 60 Random Glucose 80 Calcium 9.2 Total Bilirubin Direct Bilirubin AST ALT Alkaline Phosphatase Total Protein Albumin Urine Color Urine Appearance Urine pH Ur Specific Marvell Urine Protein Urine Glucose (UA) Urine Ketones Urine Blood Urine Nitrite Ur Leukocyte Esterase Urine RBC Urine WBC Ur Squamous Epith Cells Calcium Oxalate Crystal Urine Bacteria Hyaline Casts Stool Occult Blood Blood Type Antibody Screen Antibody Identification Antigen Identification Crossmatch ([facility]) Blood Bank Comment Assessment and Plan (1) Anemia: Status: Acute Plan 84 years old woman with past medical history significant for severe status post TAVR, CVA, essential hypertension, hyperlipidemia and COPD, chronic anemia had EGD in February 2025 and was unremakable. She is here with rectal bleed, stable H/H Acute on chronic anemia rectal bleed, H'/H unchanged from previous, Ddx: diverticular bleed, hemorrhoid and others, serial H/H and if stable, will susgest likely hemorrhoid Gi consult--advance diet, monitor H/H Liquid diet hold plavixx HTN no longer on meds History of CVA plavix, now on hold mood disorder xanax, celexa and bupropion dvt prophylaxis - mechanical due to gi bleed full code reason for continued hospitalization: Quality Stroke Does the patient have a stroke diagnosis?: No VTE Prior VTE?: No VTE Risk Level:: Medical - moderate - high VTE Device Contraindication: N/A - Device Ordered VTE Drug Contraindication: Treatment Not Indicated
--- NOTE | 2025-08-22 11:12 | MHC.CM.PN ---
pt lives with son is indepedent has no services has a ride dc plan home n/s
--- NOTE | 2025-08-22 11:30 | PC.NURSE ---
Son called on the phone, patient gave verbal primission to give update to Son. Upon talking to son, son expressed concern regarding patient having frequent falls at home. Patient is stand by assist with cane, patient slightly unsteady but makes comments I am going to fall . Reached out to provider Desirae via [employer] to see about PT consult, no order at this time.
[2025-08-22] MEDS: Fluticasone/Vilanterol 100/25 BLST.W.DEV 1 PUFF INHALE (11:31)
[2025-08-22 11:51] VITALS: BP 140/67; PULSE 79; RESP 18; TEMP 36.1; O2SAT 92
[2025-08-22 15:18] LABS: Hematocrit 27.1 % (37.0-47.0); Hemoglobin 8.4 g/dl (12.0-16.0); Mean Corpuscular HGB Conc 31.0 g/dl (31.0-35.0); Mean Corpuscular Hemoglobin 27.6 pg (27.0-33.0); Mean Corpuscular Volume 89.1 fL (80.0-98.0); NRBC Abs Auto 0.000 X10*3/uL (0.0-0.012); NRBC Pct Auto 0.0 /100WBC (0.0-0.2); Platelet Count 159 X10*3/uL (160-400); Red Blood Count 3.04 X10*6/uL (4.20-5.50); White Blood Count 3.3 X10*3/uL (4.8-10.8)
[2025-08-22] MEDS: 0.9 % Sodium Chloride Flush 3 ML SYRINGE IVFLUSH ×2 (15:31→21:12)
--- NOTE | 2025-08-22 15:32 | PC.NURSE ---
Patient complaining of feel anxious , talking about how it's her best friend's today and she can't go because she's in the hospital. 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 Patient denies feeling dizzy or lightheaded. Patient will also begin talking about stories that do not necessarily relate to the conversation and seems to have short term forgetfulness and patient will continuously ask about the hospital plan of care. Patient reeducated regarding plan of care and agrees with it. When speaking to the son earlier on the phone he mentioned that she would ask for extra Xanax and lately she has had short term memory loss. Patient requesting for an extra dose of Xanax for anxiousness, reached out to provider [facility] via [email or web address], order placed. Patient remains sitting up in chair by window, chair alarm in place, call mcmahan within reach.
[2025-08-22 16:00] VITALS: BP 131/60; PULSE 78; RESP 18; TEMP 36.7; O2SAT 93
[2025-08-22 20:00] VITALS: BP 122/67; PULSE 91; RESP 18; TEMP 36.8; O2SAT 93
[2025-08-22 23:42] VITALS: BP 114/64; PULSE 100; RESP 18; TEMP 36.5; O2SAT 96
--- NOTE | 2025-08-23 01:41 | PC.NURSE ---
Care assumed at 1900. Pt alert oriented x4 with chronic episodes of forgetfulness. Patient ambulating with a cane with standby assistance provided as patient has history of falling at home. Patient reports no further episodes of rectal bleeding. PM medications provided as documented and patent sleeping well during the night. Bed in low position, locked with call mcmahan at bedside and bed alarm on. Refer to EMAR documentation.
[2025-08-23 03:47] VITALS: BP 127/77; PULSE 86; RESP 18; TEMP 36.2; O2SAT 93
[2025-08-23 06:45] LABS: Hematocrit 24.4 % (37.0-47.0); Hemoglobin 7.6 g/dl (12.0-16.0); Mean Corpuscular HGB Conc 31.1 g/dl (31.0-35.0); Mean Corpuscular Hemoglobin 27.6 pg (27.0-33.0); Mean Corpuscular Volume 88.7 fL (80.0-98.0); NRBC Abs Auto 0.000 X10*3/uL (0.0-0.012); NRBC Pct Auto 0.0 /100WBC (0.0-0.2); Platelet Count 145 X10*3/uL (160-400); Red Blood Count 2.75 X10*6/uL (4.20-5.50); White Blood Count 2.8 X10*3/uL (4.8-10.8)
[2025-08-23] MEDS: Fluticasone/Vilanterol 100/25 BLST.W.DEV 1 PUFF INHALE (07:44)
[2025-08-23 07:46] VITALS: PULSE 82; RESP 14; O2SAT 96
[2025-08-23 07:48] VITALS: BP 121/61; PULSE 68; RESP 17; TEMP 36.6; O2SAT 98
[2025-08-23] MEDS: Mirabegron 50 MG TAB.ER.24H PO (08:14)
[2025-08-23] MEDS: 0.9 % Sodium Chloride Flush 3 ML SYRINGE IVFLUSH ×3 (08:15→22:03)
--- NOTE | 2025-08-23 08:49 | P.PNIM_ITS ---
Subjective Subjective Date of Service: 08/23/25 Interval History: c/o back pain, H/H no signficant change Physical Exam 2 Vital Signs: Vital Signs: Selected Entries 08/23/25 11:27 Temperature 98.0 F Pulse Rate 81 Respiratory Rate 18 Blood Pressure 140/70 H Pulse Oximetry 92 Oxygen Delivery Me thod Room Air Const: Other: General: AO X 3, no acute distress Resp: CTA bilateral CVS: S1,S2,RRR GI: +BS, NT, no distention Skin: No rash Neuro: motor grossly intact Psych: appropriate affect Objective Data Active Medications Acetaminophen (Acetaminophen 325 Mg Tablet) 650 mg PO Q6H PRN PRN Reason: Pain, Mild 1-3,fever,headache Last Admin: 08/24/25 08:21 Dose: 650 mg Documented By: BOGDAN Albuterol Sulfate (Albuterol Sulfate 90 Mcg 8 Gm Inhaler) 2 puff INHALE Q4H PRN PRN Reason: Wheezing Alprazolam (Alprazolam 0.25 Mg Tablet) 0.125 mg PO BID [facility] Last Admin: 08/23/25 22:02 Dose: 0.125 mg Documented By: WILLARD Bupropion HCl (Bupropion Hcl 75 Mg Tablet) 75 mg PO DAILY [facility] Last Admin: 08/24/25 08:21 Dose: 75 mg Documented By: BOGDAN Calcium Carbonate (Calcium Carbonate 750 Mg Tab.Chew) 750 mg PO Q4H PRN PRN Reason: Heartburn Docusate Sodium (Docusate Sodium 100 Mg Capsule) 100 mg PO BEDTIME PRN PRN Reason: Constipation Escitalopram Oxalate (Escitalopram Oxalate 10 Mg Tablet) 10 mg PO BID [facility] Last Admin: 08/24/25 08:21 Dose: 10 mg Documented By: BOGDAN Fluticasone/Vilanterol (Fluticasone/Vilanterol 100/25 Blst.W.Dev) 1 puff INHALE RDAILY [facility] Last Admin: 08/24/25 07:54 Dose: 1 puff Documented By: LYDIA Gabapentin (Gabapentin 100 Mg Capsule) 100 mg PO BEDTIME [facility] Last Admin: 08/23/25 22:02 Dose: 100 mg Documented By: WILLARD Loratadine (Loratadine 10 Mg Tablet) 10 mg PO DAILY PRN PRN Reason: ALLERGIES Magnesium Hydroxide (Milk Of Magnesia 30 Ml Oral.Susp) 30 ml PO DAILY PRN PRN Reason: Constipation Last Admin: 08/23/25 14:08 Dose: 30 ml Documented By: BOGDAN Melatonin (Melatonin 3 Mg Tablet) 6 mg PO BEDTIME PRN PRN Reason: Insomnia Mirabegron (Mirabegron 50 Mg Tab.Er.24h) 50 mg PO DAILY [facility] Last Admin: 08/24/25 08:21 Dose: 50 mg Documented By: BOGDAN Omeprazole (Omeprazole 20 Mg Capsule.Dr) 20 mg PO DAILY@0630 [facility] Last Admin: 08/24/25 06:21 Dose: 20 mg Documented By: WILLARD Ondansetron HCl (Ondansetron Hcl 4 Mg/2 Ml Vial) 4 mg IVPUSH Q8H PRN PRN Reason: Nausea and Vomiting Last Admin: 08/22/25 02:11 Dose: 4 mg Documented By: BRITTNEE Polyethylene Glycol (Polyethylene Glycol 3350 17 Gm Powd.Pack) 17 gm PO DAILY PRN PRN Reason: Constipation Last Admin: 08/23/25 17:30 Dose: 17 gm Documented By: BOGDAN Simethicone (Simethicone 80 Mg Tab.Chew) 80 mg PO TID PRN PRN Reason: abdominal distention Sodium Chloride (0.9 % Sodium Chloride Flush 3 Ml Syringe) 3 ml IVFLUSH QSHIFT [facility] Last Admin: 08/24/25 08:22 Dose: 3 ml Documented By: BOGDAN Vitamin D (Cholecalciferol (Vitamin D3) 25 Mcg Tablet) 50 mcg PO DAILY [facility] Last Admin: 08/24/25 08:21 Dose: 50 mcg Documented By: BOGDAN Labs 08/24/25 05:50 08/22/25 06:00 Labs: Laboratory Results - last 24 hr 08/24/25 05:50 MCV 89.5 MCH 27.5 MCHC 30.7 L RDW 14.1 Plt Count 142 L MPV 11.6 Absolute Nucleated RBC 0.000 Nucleated RBC % (auto) 0.0 Assessment and Plan (1) Anemia: Status: Acute Plan 84 years old woman with past medical history significant for severe status post TAVR, CVA, essential hypertension, hyperlipidemia and COPD, chronic anemia had EGD in February 2025 and was unremakable. She is here with rectal bleed, stable H/H Acute on chronic anemia rectal bleed, H'/H stable, Ddx: diverticular bleed, hemorrhoid and others, serial H/H and if stable, will susgest likely hemorrhoid Gi consult--advance diet, monitor H/H Liquid diet hold plavixx HTN no longer on meds History of CVA plavix, now on hold mood disorder xanax, celexa and bupropion dvt prophylaxis - mechanical due to gi bleed full code reason for continued hospitalization: late entry note for 08/23 Quality Stroke Does the patient have a stroke diagnosis?: No VTE Prior VTE?: No VTE Risk Level:: Medical - moderate - high VTE Device Contraindication: N/A - Device Ordered VTE Drug Contraindication: Treatment Not Indicated
[2025-08-23 11:27] VITALS: BP 140/70; PULSE 81; RESP 18; TEMP 36.7; O2SAT 92
[2025-08-23] MEDS: Milk of Magnesia 30 ML ORAL.SUSP PO (14:08)
--- NOTE | 2025-08-23 15:07 | MHC.CM.PN ---
JUANA SPOKE TO PTS SON TO DISCUSS DCP HE REPORTS HE IS THE ONLY ONE THAT HELPS THE PT AT HOME AND HE HAS MANY CONCERNS HE SAYS SHE IS OFTEN NON-COMPLIANT WITH TREATMENT AND SAFETY (LIKE USING HER CANE) HE SAYS DR KOROMA WROTE A LETTER STATING THE PT IS NOT COMPLIANT AND MAY NOT BE ABLE TO CARE FOR HERSELF, BUT WHEN THE PT SAW IT, SHE CHANGED PCP'S HE SAYS PT NOW SEES DR MEDRANO AT [facility] [place], BUT THE VNA HAD TO STOP BECAUSE THEY COULD NOT ACCEPT ORDERS FROM THIS PCP SHE JUST MOVED FROM [place] HE ALSO STATES THE PT WILL NOT LET HIM ASSIST WITH MANAGING THE HOME/BILLS, BUT FORGETS TO PAY THINGS HE WONDERS IF PTS HCP COULD BE INVOKED BUT STATES IF NOT, HE IS WORKING WITH AN ELDER ATTY TO GAIN ACCESS TO MANAGING PTS AFFAIRS FOR HER. PTS SON ALSO ASKED ABOUT ELIGIBILITY FOR STR, PT IS OBSERVATION AND WOULD ONLY BE ABLE TO GO ON HER WELLPOINT CM UNABLE TO DETERMINE IF SHE HAS STR DAYS LEFT UNDER THIS INSURANCE SHE WAS [facility] THIS YEAR CONCERNS RELAYED TO HOSPITALIST SON REPORTS THE PT WILL AT LEAST NEED VNA, THEY WOULD PREFER [facility] AND NOT [facility]
[2025-08-23 15:54] VITALS: BP 122/65; PULSE 84; RESP 18; TEMP 37; O2SAT 94
[2025-08-23 19:14] VITALS: BP 129/68; PULSE 91; RESP 18; TEMP 37.6; O2SAT 93
[2025-08-24] VITALS: BP 144/65; PULSE 83; RESP 18; TEMP 36.1; O2SAT 92
[2025-08-24 03:57] VITALS: BP 153/74; PULSE 80; RESP 18; TEMP 36; O2SAT 95
[2025-08-24 07:06] LABS: Hematocrit 25.7 % (37.0-47.0); Hemoglobin 7.9 g/dl (12.0-16.0); Mean Corpuscular HGB Conc 30.7 g/dl (31.0-35.0); Mean Corpuscular Hemoglobin 27.5 pg (27.0-33.0); Mean Corpuscular Volume 89.5 fL (80.0-98.0); NRBC Abs Auto 0.000 X10*3/uL (0.0-0.012); NRBC Pct Auto 0.0 /100WBC (0.0-0.2); Platelet Count 142 X10*3/uL (160-400); Red Blood Count 2.87 X10*6/uL (4.20-5.50); White Blood Count 2.8 X10*3/uL (4.8-10.8)
[2025-08-24] MEDS: Fluticasone/Vilanterol 100/25 BLST.W.DEV 1 PUFF INHALE (07:54)
[2025-08-24 07:56] VITALS: BP 159/75; PULSE 80; PULSE 82; RESP 16; RESP 18; TEMP 37; O2SAT 93
[2025-08-24] MEDS: Mirabegron 50 MG TAB.ER.24H PO (08:21)
[2025-08-24] MEDS: 0.9 % Sodium Chloride Flush 3 ML SYRINGE IVFLUSH (08:22)
--- NOTE | 2025-08-24 08:54 | P.PNIM_ITS ---
Subjective Subjective Date of Service: 08/24/25 Interval History: She's doing well, has no new issues H/H is stable Physical Exam 2 Vital Signs: Vital Signs: Last Vital Signs Temp 98.6 F 08/24/25 07:56 Pulse 82 08/24/25 07:56 Resp 16 08/24/25 07:56 BP 159/75 H 08/24/25 07:56 Pulse Ox 93 08/24/25 07:56 O2 Del Method Room Air 08/24/25 07:56 BMI result Body Mass Index 27.4 Const: Other: General: AO X 3, no acute distress Resp: CTA bilateral CVS: S1,S2,RRR GI: +BS, NT, no distention Skin: No rash Neuro: motor grossly intact Psych: appropriate affect Objective Data Active Medications Acetaminophen (Acetaminophen 325 Mg Tablet) 650 mg PO Q6H PRN PRN Reason: Pain, Mild 1-3,fever,headache Last Admin: 08/24/25 08:21 Dose: 650 mg Documented By: BOGDAN Albuterol Sulfate (Albuterol Sulfate 90 Mcg 8 Gm Inhaler) 2 puff INHALE Q4H PRN PRN Reason: Wheezing Alprazolam (Alprazolam 0.25 Mg Tablet) 0.125 mg PO BID REPLACED BY [facility] Last Admin: 08/23/25 22:02 Dose: 0.125 mg Documented By: WILLARD Bupropion HCl (Bupropion Hcl 75 Mg Tablet) 75 mg PO DAILY REPLACED BY [facility] Last Admin: 08/24/25 08:21 Dose: 75 mg Documented By: BOGDAN Calcium Carbonate (Calcium Carbonate 750 Mg Tab.Chew) 750 mg PO Q4H PRN PRN Reason: Heartburn Docusate Sodium (Docusate Sodium 100 Mg Capsule) 100 mg PO BEDTIME PRN PRN Reason: Constipation Escitalopram Oxalate (Escitalopram Oxalate 10 Mg Tablet) 10 mg PO BID REPLACED BY [facility] Last Admin: 08/24/25 08:21 Dose: 10 mg Documented By: BOGDAN Fluticasone/Vilanterol (Fluticasone/Vilanterol 100/25 Blst.W.Dev) 1 puff INHALE RDAILY REPLACED BY [facility] Last Admin: 08/24/25 07:54 Dose: 1 puff Documented By: LYDIA Gabapentin (Gabapentin 100 Mg Capsule) 100 mg PO BEDTIME REPLACED BY [facility] Last Admin: 08/23/25 22:02 Dose: 100 mg Documented By: WILLARD Loratadine (Loratadine 10 Mg Tablet) 10 mg PO DAILY PRN PRN Reason: ALLERGIES Magnesium Hydroxide (Milk Of Magnesia 30 Ml Oral.Susp) 30 ml PO DAILY PRN PRN Reason: Constipation Last Admin: 08/23/25 14:08 Dose: 30 ml Documented By: BOGDAN Melatonin (Melatonin 3 Mg Tablet) 6 mg PO BEDTIME PRN PRN Reason: Insomnia Mirabegron (Mirabegron 50 Mg Tab.Er.24h) 50 mg PO DAILY REPLACED BY [facility] Last Admin: 08/24/25 08:21 Dose: 50 mg Documented By: BOGDAN Omeprazole (Omeprazole 20 Mg Capsule.Dr) 20 mg PO DAILY@0630 REPLACED BY [facility] Last Admin: 08/24/25 06:21 Dose: 20 mg Documented By: WILLARD Ondansetron HCl (Ondansetron Hcl 4 Mg/2 Ml Vial) 4 mg IVPUSH Q8H PRN PRN Reason: Nausea and Vomiting Last Admin: 08/22/25 02:11 Dose: 4 mg Documented By: BRITTNEE Polyethylene Glycol (Polyethylene Glycol 3350 17 Gm Powd.Pack) 17 gm PO DAILY PRN PRN Reason: Constipation Last Admin: 08/23/25 17:30 Dose: 17 gm Documented By: BOGDAN Simethicone (Simethicone 80 Mg Tab.Chew) 80 mg PO TID PRN PRN Reason: abdominal distention Sodium Chloride (0.9 % Sodium Chloride Flush 3 Ml Syringe) 3 ml IVFLUSH QSHIFT REPLACED BY [facility] Last Admin: 08/24/25 08:22 Dose: 3 ml Documented By: BOGDAN Vitamin D (Cholecalciferol (Vitamin D3) 25 Mcg Tablet) 50 mcg PO DAILY REPLACED BY [facility] Last Admin: 08/24/25 08:21 Dose: 50 mcg Documented By: BOGDAN Labs 08/24/25 05:50 08/22/25 06:00 Labs: Laboratory Results - last 24 hr 08/24/25 05:50 MCV 89.5 MCH 27.5 MCHC 30.7 L RDW 14.1 Plt Count 142 L MPV 11.6 Absolute Nucleated RBC 0.000 Nucleated RBC % (auto) 0.0 Assessment and Plan (1) Anemia: Status: Acute Plan 84 years old woman with past medical history significant for severe status post TAVR, CVA, essential hypertension, hyperlipidemia and COPD, chronic anemia had EGD in February 2025 and was unremakable. She is here with rectal bleed, stable H/H Acute on chronic anemia rectal bleed, H'/H stable, Ddx: diverticular bleed, hemorrhoid and others, serial H/H and if stable, will susgest likely hemorrhoid seen by Gi consult--advance diet, monitor H/H, hold Plavix for few days, Prep H as needed diet advanced to regulard diet HTN no longer on meds History of CVA plavix, now on hold mood disorder xanax, celexa and bupropion dvt prophylaxis - mechanical due to gi bleed full code reason for continued hospitalization: out of bed, ambulate and possible dc later today Quality Stroke Does the patient have a stroke diagnosis?: No VTE Prior VTE?: No VTE Risk Level:: Medical - moderate - high VTE Device Contraindication: N/A - Device Ordered VTE Drug Contraindication: Treatment Not Indicated
[2025-08-24 12:00] VITALS: BP 140/69; PULSE 84; RESP 18; O2SAT 92
--- NOTE | 2025-08-24 14:03 | PM.DS ---
DS: Providers Provider Date of admission: 08/21/25 15:00 Date of discharge: 08/24/25 Primary care physician: Fátima Case MD Consults: 08/21/25 14:49 Consult to Gastroenterology Routine Consulting Provider: [facility] Reason for consultation: rectal bleed, anemia Has provider been notified: No DS: Diagnosis Discharge Diagnosis (1) Anemia: Status: Acute DS: Summary Hospital Course Hospital Course: 84 years old woman with past medical history significant for severe status post TAVR, CVA, essential hypertension, hyperlipidemia and COPD, chronic anemia had EGD in February 2025 and was unremakable. She is here with rectal bleed, stable H/H Acute on chronic anemia, she did not require transfusion. Hgb level was as follow 8.4->7.8->8.4->7.6->7.9. She did not require transfusion. No further bleeding. GI Seen by GI and recommended--advance diet, monitor H/H, hold Plavix for few days, Prep H as needed. She has been tolerating regular diet. diet advanced to regulard diet HTN no longer on meds History of CVA plavix, now on hold mood disorder xanax, celexa and bupropion Dispo; She prefers to go home, she alert, oriented to self, place and time and aware of circumstances bringing her to the hosptal, in my clinical assessment she's sound and ble to make medical decisions for herself at this time. She ambulating without difficulty, she will have visiting nurses upon discharge Time Attestation Discharge Coordination Time (in mins): 35 Quality: Safe Use of Opioids Does Pt have an Active Cancer Diagnosis on the Problem List?: No Quality: Stroke Does the patient have a stroke diagnosis?: No Physical Exam Vital Signs: Vital Signs: Last Vital Signs Temp 98.6 F 08/24/25 07:56 Pulse 84 08/24/25 12:00 Resp 18 08/24/25 12:00 BP 140/69 H 08/24/25 12:00 Pulse Ox 92 08/24/25 12:00 O2 Del Method Room Air 08/24/25 12:00 BMI result Body Mass Index 27.4 DS: Data Data Completed and Pending Completed studies during hospitalization [Text1]: Procedures Excision of Duodenum, Via Natural or Artificial Opening Endoscopic, Diagnostic (02/09/25) Excision of Stomach, Pylorus, Via Natural or Artificial Opening Endoscopic, Diagnostic (02/09/25) Transfusion of Nonautologous Red Blood Cells into Peripheral Vein, Percutaneous Approach (02/09/25) Labs on day of discharge: Laboratory Results - last 24 hr 08/24/25 05:50 WBC 2.8 L RBC 2.87 L Hgb 7.9 L Hct 25.7 L MCV 89.5 MCH 27.5 MCHC 30.7 L RDW 14.1 Plt Count 142 L MPV 11.6 Absolute Nucleated RBC 0.000 Nucleated RBC % (auto) 0.0 Discharge Plan Discharge Anticipated Discharge Date/Time: 08/23/25 14:35 Patient Disposition: Home, Self-Care Discharge Diagnosis: Anemia , blood in the stool Referrals: Fátima Case MD [Primary Care Provider, Internal Medicine] - 1 Week Discharge Medications: Continued cholecalciferol (vitamin D3) [Vitamin D3] 50 mcg (2,000 unit) tablet 50 mcg PO DAILY Qty: 90 3RF clopidogrel 75 mg tablet 75 mg PO DAILY Qty: 90 0RF pantoprazole [Protonix] 40 mg tablet,delayed release (DR/EC) 40 mg PO DAILY@0630 Qty: 90 0RF lidocaine 5 % adhesive patch,medicated 1 patch topical Q24H PRN (Reason: pain) Qty: 30 0RF Rx Instructions: leave on most painful area for up to 12 hrs alprazolam 0.25 mg tablet 0.125 mg PO BID docusate sodium 100 mg capsule 100 mg PO BEDTIME PRN (Reason: constipation) albuterol sulfate 90 mcg/actuation HFA aerosol inhaler 2 puff inhalation Q4H PRN (Reason: wheezing) coenzyme Q10 100 mg capsule 100 mg PO DAILY simethicone 80 mg tablet,chewable 80 mg PO TID PRN (Reason: abdominal distention) folic acid 400 mcg Tablet 0.4 mg PO DAILY gabapentin 100 mg Capsule 100 mg PO BEDTIME loratadine 10 mg Tablet 10 mg PO DAILY PRN (Reason: ALLERGIES) mirabegron [Myrbetriq] 50 mg tablet extended release 24 hr 50 mg PO DAILY fluticasone propion-salmeterol [Advair HFA] 115-21 mcg/actuation HFA aerosol inhaler 2 puff INHALATION Q12H acetaminophen 325 mg Tablet 325 mg PO Q4H PRN (Reason: Pain) bupropion HCl 75 mg tablet 75 mg PO DAILY citalopram [Celexa] 20 mg tablet 20 mg PO BID Discharge Orders: Discharge Order (Routine); Ordered 08/24/25 Ordered By: Orlin Merrill Diet: Advance to usual diet Activity on Discharge: As tolerated Stand Alone Forms: Patient Portal Discharge page Print Language: French Care Plan Goals: recovery from anemia and rectal bleed Health Concerns: rectal bleed, anemia Plan of Treatment: follow up with your Doctor in a week if notice blood again call 911 or come to emergency Assessment: see above
--- NOTE | 2025-08-24 14:30 | W.MHC.F2F ---
Service Date Service Date: 08/24/25 Encounter Date of encounter: 08/24/25 Reasons for Services Signs and symptoms assessed: weakness, fall in recent past Reason for halfway: teach disease management Reason for physical therapy: therapeutic exercises, gait/transfer training, assess need for DME, ADL training and energy conservation Homebound: Leaving the home is medically contraindicated at this time without the asist of a device and/or another person due th the listed conditions above and below. Reason homebound: weakness related to hospital stay and unable to drive Homebound supporting statement: homebound due to weakness from anemia, fall risk, recent fall doesn't drive and therefore needs the assistance of another person Certification: Based on the above findings, I certify that this patient is confined to the home and needs intermittent halfway care, physical therapy and/or speech therapy, or continues to need occupational therapy. The patient is under my care, and I have initiated the establishment of the plan of care. The patient will be followed by a physician who will periodically review the plan of care. Time Spent With Patient Time: Total time managing care of this patient today ____ minutes.
[2025-08-24 15:18] VITALS: BP 128/61; PULSE 86; RESP 18; TEMP 37.1; O2SAT 95
== END 2025-08-24 16:33 | disposition home or self-care (01) ==
LOC: HO.ED 14:48 → HO.EDOVER 15:36 → HO.S3 19:24
PROVIDERS: Physician Assistant Medical; Admitting Provider Internal Medicine; Emergency Provider Emergency Medicine; PCP Internal Medicine; Visit Provider Internal Medicine
DX: D50.9 Iron deficiency anemia, unspecified (principal); K59.01 Slow transit constipation; K92.1 Melena; D61.818 Other pancytopenia; I10 Essential (primary) hypertension; J44.9 Chronic obstructive pulmonary disease, unspecified; R42 Dizziness and giddiness; E78.5 Hyperlipidemia, unspecified; I35.0 Nonrheumatic aortic (valve) stenosis; Z86.73 Personal history of transient ischemic attack (TIA), and cerebral infarction without residual deficits; Z79.899 Other long term (current) drug therapy
CPT/HCPCS: 36415; 74177; 80048; 80076; 81001; 82272; 85025; 85027; 85610; 86850; 86870; 86900; 86901; 86902; 86905; 86920; 86922; 94640; 96361; 96374; 96375; 99221; 99285; J2405; J2470; J7120; Q9967

== ENCOUNTER → 2025-08-21 12:20 | Outpatient (BNV) | payer MEDICARE, OTHER, SELFPAY | PROVIDERS: Emergency Provider Emergency Medicine; PCP Internal Medicine; Visit Provider Radiology Diagnostic Radiology | DX: K57.30 Diverticulosis of large intestine without perforation or abscess without bleeding (principal); I71.43 Infrarenal abdominal aortic aneurysm, without rupture; N20.0 Calculus of kidney | CPT/HCPCS: 74177 ==

== ENCOUNTER → 2025-08-21 15:00 | Outpatient (BNV) | payer MEDICARE, OTHER, SELFPAY | PROVIDERS: Admitting Provider Internal Medicine; Emergency Provider Emergency Medicine; PCP Internal Medicine; Visit Provider Internal Medicine | DX: D50.9 Iron deficiency anemia, unspecified (principal); K62.5 Hemorrhage of anus and rectum; K59.01 Slow transit constipation | CPT/HCPCS: 99232; 99239; 99499; G0180 ==